=== PATIENT | female | born 1945 | race Caucasian/White ===

== ENCOUNTER 2017-07-29 09:15 | Emergency (ER) | payer MEDICARE, OTHER ==
[~2017-07-29] VITALS: Ht 165.1 cm; Wt 72.6 kg
--- OUTSIDE RECORDS SUMMARY | ~2017-07-29 | XMS | Encounter Summary ---
Demographics + + + | Address | [address] | | | [place] [address] | + + + | Home Phone | | + + + | Preferred Language | Unknown | + + + | Marital Status | | + + + | Alevism Affiliation | CHR | + + + [...] | Unavailable | + + + Support +------+ + + + + + | Name | Relationship | Address | Phone | +------+ + + + + + ECON | [address] | | [place], | [place] [address] | +------+ + + + + + Care Team Providers + +------+-------+ | Care Engagement Quality Consultant Name | Role | Phone | + +------+-------+ | Antony Ribera MD | PCP | tel | + +------+-------+ Reason for Visit + + + | Reason | Comments | + + + | Osteoporosis | | + + + Office Visit - E/M Services (Routine) +--------+ + + + + + | Status | Reason | Specialty | Diagnoses / | Referred By | Referred To | | | | | Procedures | Contact | Contact | +--------+ + + + + + | Closed | Specialty | Endocrinology | Diagnoses | Marcus, | Carlos Manuel, | | | Services | , Diabetes & | Thyroid | Stevan Razo, | MD Tapan | | | Required | Metabolism | nodule | MD [address] | [address] | | | | | Disorder of | [address] | [address] | | | | | bone and | [place], [place] | Rd [place], | | | | | cartilage, | [address] | [place] | | | | | unspecified | Phone: | [address] | | | | | | [phone] | Phone: | | | | | | Fax: | [phone] | | | | | | [phone] | Fax: | | | | | | | [phone] | +--------+ + + + + + Encounter Details +--------+---------+ + + + | Date | Type | Department | Care Team | Description | +--------+---------+ + + + | 11/29/ | Office | John Rudolph | Tapan Horowitz MD | Disorder of bone and | | 2017 | Visit | Diabetes Health | [address] [facility] | cartilage (Primary | | | | [facility] | [address] [place], | Dx); Thyroid nodule; | | | | [facility] [address] | [place] [address] | Other specified | | | | [facility] | [phone] | disorders of bone | | | | [facility] | | density and | | | | [facility] | | structure, | | | | [facility] [place], | | unspecified site | | | | [place] [address] | | (CODE) | | | | [phone] | | | +--------+---------+ + + + [...] | | + +---+---+---+ + + | Tobacco Cessation: Counseling Given: Yes | + + + + +---------+ + | Alcohol Use | Drinks/We | oz/Week | Comments | | | ek | | | + + +---------+ + | No | | | | + + +---------+ + + + + | Sex Assigned at | Date Recorded | | | | + + + | Not on file | | + + + as of this encounter Last Filed Vital Signs + + + + | Vital Sign | Reading | Time Taken | + + + + | Blood Pressure | - | - | + + + + | Pulse | - | - | + + + + | Temperature | - | - | + + + + | Respiratory Rate | 12 | 06/13/2017 12:53 PM PST | + + + + | Oxygen Saturation | - | - | + + + + | Inhaled Oxygen | - | - | | Concentration | | | + + + + | Weight | 71.2 kg (157 lb) | 06/13/2017 12:53 PM PST | + + + + | Height | 166.6 cm (5' 5.6") | 06/13/2017 12:53 PM PST | + + + + | Body Mass Index | 25.65 | 06/13/2017 12:53 PM PST | + + + + in this encounter Progress Notes Tapan Horowitz MD - 06/13/2017 12:[facility] 1) Bone: pt last rcvd IV Relcast in 2010. DXA is stable. Will repeat infusion in 2019. Pt o n calcium/vit d- check vit d level. Pt sees dentist regularly. 2) Thyroid nodules: check TSH. No more imaging required. The time I spent with the patient was 15 minutes of which greater than 50% was spent in one on one counseling. Reviewed DXA report in this encounter Plan of Treatment +--------+ + + + + | Date | Type | Specialty | Care Team | Description | +--------+ + + + + | 08/14/ | Office | Cardiology | Elijah Whalen, | | | 2017 | Visit | | MD [address] | | | | | | [address] | | | | | | [place], [place] | | | | | | [address] | | | | | | [phone] | | | | | | | | +--------+ + + + + | 10/24/ | Appointment | Pulmonary Disease | [facility] | | | 2018 | | | [address] | | | | | | [facility], | | | | | | [place] [address] | | +--------+ + + + + | 10/24/ | Results/Int | Pulmonary Disease | | | | 2017 | erpretation | | | | +--------+ + + + + | 10/24/ | Office | Pulmonary Disease | Juana Kilgore MD | | | 2017 | Visit | | [address] | | | | | | [address], | | | | | | [place] [address] | | | | | | [phone] | | | | | | | | +--------+ + + + + | 10/29/ | Appointment | Radiology | [facility], | | | 2017 | | | [address] | | | | | | [place], [place] | | | | | | [address] | | | | | | [phone] | | | | | | | | +--------+ + + + + | 10/29/ | Office | Surgical Oncology | [facility], | | | 2017 | Visit | | [address] | | | | | | [place], [place] | | | | | | [address] | | | | | | [phone] | | | | | | | | +--------+ + + + + | 06/26/ | Office | Endocrinology, | Tapan Horowitz MD | | | 2018 | Visit | Diabetes & | [address] | | | | | Metabolism | [address] [place], | | | | | | [place] [address] | | | | | | [phone] | | | | | | | | +--------+ + + + + as of this encounter Results TSH (06/13/2017 1:00 PM) + +-------+ + | Component | Value | Ref Range | + +-------+ + | TSH | 1.78 | 0.47 - 7.11 mIU/L | + +-------+ + + + + | Specimen | Performing Laboratory | + + + | Blood | [facility], CORE [address] [place] [address] | | | [place] [address] | + + + + + | Narrative | + + | TSH reference ranges are influenced by a variety of environmental influences, age, | | gender and ethnicity. The supplied reference limits are based on published values | | utilizing a similar TSH assay, and should be interpreted with caution. | + + VITAMIN D, 25-HYDROXY, SERUM (06/13/2017 1:00 PM) + + + + | Component | Value | Ref Range | + + + + | VITAMIN D 25 HYDROXY | 29.0 (L) | 30 - 80 ng/mL | + + + + + + + | Specimen | Performing Laboratory | + + + | Blood | [facility], CORE [address] [facility] | | | [place] [address] | + + + + + | Narrative | + + | Reference Interval: 0-18years: Deficiency: <20 ng/mL | | Optimum level: >or=20 | | ng/mL >18years: | | Deficiency: <20 ng/mL | | Insufficiency: 20-29 ng/mL Optimum Level: 30-80 ng/mL | | High: 81-150 ng/ml | | Toxic: >150 ng/mL | + + in this encounter Visit Diagnoses + + | Diagnosis | + + | Disorder of bone and cartilage - Primary | + + | Disorder of bone and cartilage, unspecified | + + | Thyroid nodule | + + | Nontoxic uninodular goiter | + + | Other specified disorders of bone density and structure, unspecified site (CODE) | + +
--- OUTSIDE RECORDS SUMMARY | ~2017-07-29 | XMS | Encounter Summary ---
Demographics + + + | Address | [address] | | | [place] [address] | + + + | Home Phone | | + + + | Preferred Language | Unknown | + + + | Marital Status | | + + + | Alevism Affiliation | CHR | + + + | Race | White | + + + | Ethnic Group | Not or | + + + Author + + + | Author | [facility] | + + + | Organization | [facility] | + + + | Address | Unknown | + + + | Phone | Unavailable | + + + Support +------+ + + + + + | Name | Relationship | Address | Phone | +------+ + + + + + ECON | [address] | | [place], | [place] [address] | +------+ + + + + + Care Team Providers + +------+-------+ | Care Sea Air Land Officer Name | Role | Phone | + +------+-------+ | Antony Ribera MD | PCP | tel | + +------+-------+ Encounter Details +--------+------+ + + + | Date | Type | Department | Care Team | Description | +--------+------+ + + + | 06/13/ | Lab | Laboratory, | | Other specified | | 2016 | | Specimen Collection | | disorders of bone | | | | at [facility] [address] [address] | | density and | | | | [address] | | structure, | | | | [address] | | unspecified site | | | | [place], [place] | | (CODE) ; Disorder of | | | | [address] | | bone and cartilage; | | | | [phone] | | Thyroid nodule | +--------+------+ + + + Social History [...] + + + as of this encounter Plan of Treatment +--------+ + + + + | Date | Type | Specialty | Care Team | Description | +--------+ + + + + | 08/14/ | Office | Cardiology | Elijah Whalen, | | | 2018 | Visit | | [address] | | | | | | [address] | | | | | | [place], [place] | | | | | | [address] | | | | | | [phone] | | | | | | | | +--------+ + + + + | 10/24/ | Appointment | Pulmonary Disease | Tech, Pfl Adult | | | 2018 | | | [address] | | | | | | [facility], | | | | | | [place] [address] | | +--------+ + + + + | 10/24/ | Results/Int | Pulmonary Disease | | | | 2017 | erpretation | | | | +--------+ + + + + | 10/24/ | Office | Pulmonary Disease | Juana Kilgore MD | | | 2017 | Visit | | [address] | | | | | | [facility], | | | | | | [place] [address] | | | | | | [phone] | | | | | | | | +--------+ + + + + | 10/29/ | Appointment | Radiology | [facility], | | | 2018 | | | [address] | | | | | | [place], [place] | | | | | | [address] | | | | | | [phone] | | | | | | | | +--------+ + + + + | 10/29/ | Office | Surgical Oncology | [facility], | | | 2017 | Visit | | [address] | | | | | | [place] | | | | | | [address] | | | | | | [phone] | | | | | | | | +--------+ + + + + | 06/26/ | Office | Endocrinology, | Tapan Horowitz MD | | | 2017 | Visit | Diabetes & | [address] | | | | | Metabolism | [place], | | | | | | [place] [address] | | | | | | [phone] | | | | | | | [...] | + + + | Blood | [facility], CORE [address] [facility] | | | [place] [address] | + + + + + | [...] | + + + | Blood | [facility], CORE [address] | | | [place] [address] | + + + + + | [...] + | Diagnosis | + + | Other specified disorders of bone density and structure, unspecified site (CODE) | + + | Disorder of bone and cartilage | + + | Disorder of bone and cartilage, unspecified | + + | Thyroid nodule | + + | Nontoxic uninodular goiter | + +"
--- OUTSIDE RECORDS SUMMARY | ~2017-07-29 | XMS | Encounter Summary ---
Demographics + + + | Address | [address] | | | [place] [address] | + + + | Home Phone | | + + + | Preferred Language | Unknown | + + + | Marital Status | | + + + | Jain Affiliation | CHR | + + + | Race | White | + + + | Ethnic Group | Not or | + + + Author + + + | Author | [facility] | + + + | Organization | [facility] | + + + | Address | Unknown | + + + | Phone | Unavailable | + + + Support +------+ + + + + + | Name | Relationship | Address | Phone | +------+ + + + + + ECON | [address] | | [place], | [place] [address] | +------+ + + + + + Care Team Providers + +------+-------+ | Care Production Hand Name | Role | Phone | + +------+-------+ | Antony Ribera MD | PCP | tel | + +------+-------+ Encounter Details +--------+ + + + + | Date | Type | Department | Care Team | Description | +--------+ + + + + | 07/19/ | Abstract | Cardiology | Elijah Whalen, | | | 2018 | | Arrhythmia at [facility] | [address] | | | | | [address] | [address] | | | | | Mailcode: [id number] | [place], [place] | | | | | [facility] | [address] | | | | | and Healing | [phone] | | | | | Floor [place], [place] | | | | | | [address] | | | | | | [phone] | | | +--------+ + + + [...] | | 2017 | Visit | | [address] | | | | | | [address] | | | | | | [place], [place] | | | | | | [address] | | | | | | [phone] | | | | | | | | +--------+ + + + + | 10/24/ | Appointment | Pulmonary Disease | [facility] Adult | | | 2018 | | | [address] | | | | | | [facility], | | | | | | [place] [address] | | +--------+ + + + + | 10/24/ | Results/Int | Pulmonary Disease | | | | 2018 | erpretation | | | | +--------+ + + + + | 10/24/ | Office | Pulmonary Disease | Juana Kilgore MD | | | 2018 | Visit | | [address] | | | | | | [facility], | | | | | | [place] [address] | | | | | | [phone] | | | | | | | | +--------+ + + + + | 10/29/ | Appointment | Radiology | [facility], | | | 2018 | | | [address] | | | | | | [place], [place] | | | | | | [address] | | | | | | [phone] | | | | | | | | +--------+ + + + + | 10/29/ | Office | Surgical Oncology | [facility], | | | 2017 | Visit | | [address] | | | | | | [place], [place] | | | | | | [address] | | | | | | [phone] | | | | | | | | +--------+ + + + + | 06/26/ | Office | Endocrinology, | Tapan Horowitz MD | | | 2017 | Visit | Diabetes & | [address] | | | | | Metabolism | [place], | | | | | | [place] [address] | | | | | | [phone] | | | | | | | | +--------+ + + + + as of this encounter Visit Diagnoses Not on filein this encounter"
--- OUTSIDE RECORDS SUMMARY | ~2017-07-29 | XMS | Encounter Summary ---
Demographics + + + | Address | [address] | | | [place] [address] | + + + | Home Phone | | + + + | Preferred Language | Unknown | + + + | Marital Status | | + + + | Church Affiliation | CHR | + + + | Race | White | + + + | Ethnic Group | Not or | + + + Author + + + | Author | [facility] | + + + | Organization | [facility] | + + + | Address | Unknown | + + + | Phone | Unavailable | + + + Support +------+ + + + + + | Name | Relationship | Address | Phone | +------+ + + + + + ECON | [address] | | [place], | [place] [address] | +------+ + + + + + Care Team Providers + +------+-------+ | Care Millinery Blocker Name | Role | Phone | + +------+-------+ | Antony Ribera MD | PCP | tel | + +------+-------+ Reason for Visit + + + | Reason | Comments | + + + | Telephone follow-up | 06/26/17 | + + + Encounter Details +--------+ + + + + | Date | Type | Department | Care Team | Description | +--------+ + + + + | 06/27/ | Telephone | Digestive Health | Teresita Ki | Telephone follow-up | | 2017 | | [place] [facility] 4[facility] | MD [address] | (06/26/17) | | | | Floor [address] [facility] | [facility] | | | | | [facility] | [place] [address] | | | | | Mailcode: [id number] | [phone] | | | | | [place] | | | | | | [address] [place], [place] | | | | | | [address] | | | | | | [phone] | | | +--------+ + + + [...] 2017 | Visit | | [address] | | | | | | [address] | | | | | | [place], [place] | | | | | | [address] | | | | | | [phone] | | | | | | | | +--------+ + + + + | 10/24/ | Appointment | Pulmonary Disease | Cheng Christina Adult | | | 2018 | | | [address] | | | | | | [facility], | | | | | | [place] [address] | | +--------+ + + + + | 10/24/ | Results/Int | Pulmonary Disease | | | | 2017 | erpretation | | | | +--------+ + + + + | 10/24/ | Office | Pulmonary Disease | Juana Kilgore MD | | | 2017 | Visit | | [address] | | | | | | [place], | | | | | | [place] [address] | | | | | | [phone] | | | | | | | | +--------+ + + + + | 10/29/ | Appointment | Radiology | [facility], | | | 2017 | | | [address] | | | | | | [place], [place] | | | | | | [address] | | | | | | [phone] | | | | | | | | +--------+ + + + + | 10/29/ | Office | Surgical Oncology | [facility], | | | 2017 | Visit | | [address] | | | | | | [place], [place] | | | | | | [address] | | | | | | [phone] | | | | | | | | +--------+ + + + + | 06/26/ | Office | Endocrinology, | Tapan Horowitz MD | | | 2017 | Visit | Diabetes & | [address] | | | | | Metabolism | [place], | | | | | | [place] [address] | | | | | | [phone] | | | | | | | | +--------+ + + + + as of this encounter Visit Diagnoses Not on filein this encounter"
--- OUTSIDE RECORDS SUMMARY | ~2017-07-29 | XMS | Encounter Summary ---
Demographics + + + | Address | [address] | | | [place] [address] | + + + | Home Phone | | + + + | Preferred Language | Unknown | + + + | Marital Status | | + + + | Zoroastrianism Affiliation | CHR | + + + | Race | White | + + + | Ethnic Group | Not or | + + + Author + + + | Author | [facility] | + + + | Organization | [facility] | + + + | Address | Unknown | + + + | Phone | Unavailable | + + + Support +------+ + + + + + | Name | Relationship | Address | Phone | +------+ + + + + + ECON | [address] | | [place], | [place] [address] | +------+ + + + + + Care Team Providers + +------+-------+ | Care Janitor Custodian Name | Role | Phone | + +------+-------+ | Antony Ribera MD | PCP | tel | + +------+-------+ Encounter Details +--------+---------+ + + + | Date | Type | Department | Care Team | Description | +--------+---------+ + + + | 05/16/ | Office | Cardiology | Elijah Whalen, | Atrial tachycardia | | 2017 | Visit | Arrhythmia at [facility] | [address] | ([facility]) (Primary Dx); | | | | [address] | [address] | Paroxysmal atrial | | | | Mailcode: CH9A | [place], [place] | fibrillation (HCC) | | | | [facility] | [address] | | | | | and | [phone] | | | | | Floor [place], [place] | | | | | | [address] | | | | | | [phone] | | | +--------+---------+ + + + [...] + + + | Blood Pressure | 145/75 | 05/16/2017 12:46 PM PDT | + + + + | Pulse | 83 | 05/16/2017 12:46 PM PDT | + + + + | Temperature | - | - | + + + + | Respiratory Rate | - | - | + + + + | Oxygen Saturation | 99% | 05/16/2017 12:46 PM PDT | + + + + | Inhaled Oxygen | - | - | | Concentration | | | + + + + | Weight | 73.2 kg (161 lb 6.4 | 05/16/2017 12:46 PM PDT | | | oz) | | + + + + | Height | 166.4 cm (5' 5.5") | 05/16/2017 12:46 PM PDT | + + + + | Body Mass Index | 26.45 | 05/16/2017 12:46 PM PDT | + + + + in this encounter Instructions Patient Instructions - Elijah Whalen MD - 05/16/2017 1:05 PM PDT1 - If you notice susta ined irregular tachcyardia please get an ECG at the hospital in [place] 2 - If your leg swelling or shortness of breath becomes clearly worse, contact be about get ting an echocardiogram Otherwise I'll see you back in a yearin this encounter Progress Notes Elijah Whalen MD - 05/16/2017 1:05 PM PDTFormatting of this note may be different from the original. Arrhythmia Clinic Follow-up Past Medical History: Diagnosis Date Asthma 1999 Atrial tachycardia (HCC) 07/20 also episode in setting of [place] virus in 05/2012 which was thougth to be AF, but likely just AT. Atrial tachycardia (HCC) RA stacey tach ablated 2004 at [facility]. Repeat EPS showed only non-sustained left atrial tach ycardia Breast cancer (HCC) 02/2007 s/p chemo with taxotere/cytoxan Bursitis 2006 Deep vein thrombosis of lower extremity (HCC) Diverticul disease small and large intestine, no perforati or abscess Fibrocystic disease of breast 1979 Fibromyalgia 1995 GERD (gastroesophageal reflux disease) 1995 Mitral valve prolapse 1990 Osteopenia 12/30/2007 Plantar fascial fibromatosis 2007 plantar fascial tear Pulmonary embolus (HCC) 09/2008 Shingles Sjogrens syndrome (HCC) 1995 Skin cancer back Small bowel obstruction 07/20,10/19,02/19 TMJ (dislocation of temporomandibular joint) Patient Active Problem List Diagnosis Date Noted Paroxysmal atrial fibrillation (HCC) 11/14/2016 Asthma 02/03/2014 Extrinsic asthma 10/27/2012 Overview Note: ICD10 History of DVT (deep vein thrombosis) 06/26/2012 Thyroid nodule 12/29/2008 Overview Note: May 2011 US: Scattered sub-cm nodules December 2008 US: 5 mm Right cyst Sjogren's syndrome (HCC) 09/08/2008 Breast cancer (HCC) 05/21/2008 Disorder of bone and cartilage 12/30/2007 Overview Note: Reclast [id number] DXA 06/02/15: L -1.6 H -1.9 DXA 06/06/13; L -1.6 H -1.9 DXA 04/28/11: L -1.8 H -1.8 DXA 01/27/10: L -1.9 H -1.6 DXA 12/28/08: L -1.9 H -1.5 Acquired absence of breast and nipple 03/27/2007 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 Intestinal/congestion. Cardizem [Diltiazem Hcl] Hives Crestor [Rosuvastatin Calcium] muscle/Jt Pain Albuterol Tachycardia and Palpitations Celebrex [Celecoxib] Diarrhea, Cough and Unknown Flecainide Unknown Propafenone Unknown Intestinal distress. Tape Adherent Rash Triamterene-Hydrochlorothiazid Unknown BREAST LUMPS BREAST LUMPS Current Outpatient Prescriptions Medication Sig albuterol 0.083% 2.5 mg /3 mL (0.083 %) inhalation solution for nebulization Inhale 3 m L once daily as needed. azithromycin 250 mg oral tablet as needed. budesonide (PULMICORT FLEXHALER) 180 mcg/actuation [...] into each nostril three roxie es daily. [facility] #[id number] 300-250 million cell-mg oral capsule Take by [...] 1 tablet by mouth o nce daily. predniSONE 20 mg oral tablet as needed. rabeprazole (ACIPHEX) 20 mg Oral Tablet, Delayed [...] No current facility-administered medications for this visit. S: Ms. Flynn is here for follow-up alone today. Overall her palpitations are tolerable. No chest/arm/neck discomforts, orthopnea, PND, light-headedness or syncope. This summer she n oted more than usual lower extremity edema and has had some increase in dyspnea on exertion she attributes to mild weight gain. Both are stable and the swelling has improved with colde r weather Comprehensive ROS as above, otherwise negative O: BP 145/75 | Pulse 83 | Ht 1.664 m (5' 5.5") | Wt 73.2 kg (161 lb 6.4 oz) | SpO2 99% | BM I 26.45 kg/(m^2) Heart: RRR without murmur rub or gallop. Normal S1 and S2. CVP normal by neck veins. Lungs: clear to auscultation bilaterally Abdomen: soft, NT/ND without bruits or organomegally. Extremities: warm without edema. ECG today. Sinus rhythm 72. Cannot likely lead placement causing Qs V1 and V2 Stress echo 2011 normal Assessment: 1 - Atrial tachycardia - S/p successful ablation of stacey tach 2004. Second EPS for recurrent PSVT showed only n on-sustained LA tach - Did not tolerate Class Ic agent (GI issues). 2 - Paroxysmal atrial fibrillation. - Confirmed on Ziopatch after an illnesses in 08/2016 - Unclear how much of her symptoms is from atrial fibrillation versus PACs versus a PSVT - CHADS 2 Score: 0 CHADS2-VASC Score: 2 HAS-BLED Score: 1. In balance in this case, most appropriate antithrombotic treatment is anticoagulation. She is currently taking rivaroxaban without thromboembolism or major bleeding. - Had been on dofetilide for suppression of atrial tachycardia and atrial fibrillation wit h partial success, though she has not had worsened symptoms off of it 3 - History of DVT/PE during treatment for cancer. Reportedly considered as "provoked" Recommendations/Plans: 1 - No changes 2 - If she has recurrent sustained palpitations that could be consistent with atrial fibril lation she will go to her local hospital for an ECG. I have given her an external order for ECG and we should do that each year and annual follow-up 3 - if she has worsening alert from edema and dyspnea on exertion in the future we will ord er an echo to be done either locally or at [facility] 4 - she will see Francheska Quick and arrhythmia clinic annually if her symptoms remain tolera ble. I would like to see her after a repeat 30-day monitor (button presses for severe sympto ms only) if her symptoms are inadequately controlled and an antiarrhythmic drug is considere d, or in 2021 if she us doing well but we have been unable to capture any additional episode s of atrial fibrillation (to consider whether lifelong anticoagulation is really warranted) Elijah Whalen MD Cardiovascular Medicine - Electrophysiology [facility] [place] at [facility] in this encounter Plan of Treatment +--------+ + + + + | Date | Type | Specialty | Care Team | Description | +--------+ + + + + | 08/14/ | Office | Cardiology | Elijah Whalen, | | | 2017 | Visit | | [address] | | | | | | [facility] | | | | | | [place], [place] | | | | | | [address] | | | | | | [phone] | | | | | | | | +--------+ + + + + | 10/24/ | Appointment | Pulmonary Disease | Tech Pfellen Adult | | | 2018 | | | [address] | | | | | | [facility], | | | | | | [place] [address] | | +--------+ + + + + | 10/24/ | Results/Int | Pulmonary Disease | | | | 2018 | erpretation | | | | +--------+ + + + + | 10/24/ | Office | Pulmonary Disease | Juana Kilgore MD | | | 2017 | Visit | | [address] | | | | | | [facility], | | | | | | [place] [address] | | | | | | [phone] | | | | | | | | +--------+ + + + + | 10/29/ | Appointment | Radiology | [facility], | | | 2018 | | | [address] | | | | | | [place], [place] | | | | | | [address] | | | | | | [phone] | | | | | | | | +--------+ + + + + | 10/29/ | Office | Surgical Oncology | [facility], | | | 2017 | Visit | | [address] | | | | | | [place], [place] | | | | | | [address] | | | | | | [phone] | | | | | | | | +--------+ + + + + | 06/26/ | Office | Endocrinology, | Tapan Horowitz MD | | | 2017 | Visit | Diabetes & | [address] | | | | | Metabolism | [place], | | | | | | [place] [address] | | | | | | [phone] | | | | | | | | +--------+ + + + + + +--------+ + + | Name | Priori | Associated Diagnoses | Order Schedule | | | ty | | | + +--------+ + + | 12 LEAD ECG | Routin | Paroxysmal atrial | Ordered: 05/16/2017 | | | e | fibrillation (HCC) | | + +--------+ + + as of this encounter Results 12 LEAD ECG (05/16/2017 12:40 PM) + + + + | Component | Value | Ref Range | + + + + | VENTRICULAR RATE | 83 | bpm | + + + + | ATRIAL RATE | 84 | ms | + + + + | P-R INTERVAL | 193 | ms | + + + + | P AXIS | 62 | deg | + + + + | QRS DURATION | 97 | ms | + + + + | QT | 393 | ms | + + + + | QTCB | 462 | ms | + + + + | R AXIS | -22 | deg | + + + + | T AXIS | 22 | deg | + + + + | ECG IMPRESSION | Sinus rhythm | | + + + + | ECG IMPRESSION | Consider anteroseptal infarct- ABNORMAL ECG | | | | - | | + + + + | ECG IMPRESSION | Electronically signed by: YOLANDA BURNS | | | | 05-16-2017 20:26:54 | | + + + + + + + | Specimen | Performing Laboratory | + + + | | [facility] [address] [place] [address] | | | [place] [address] | + + + in this encounter Visit Diagnoses + + | Diagnosis | + + | Atrial tachycardia (HCC) - Primary | + + | Other specified cardiac dysrhythmias | + + | Paroxysmal atrial fibrillation (HCC) | + + | Atrial fibrillation | + +
--- OUTSIDE RECORDS SUMMARY | ~2017-07-29 | XMS | Encounter Summary ---
Demographics + + + | Address | [address] | | | [place] [address] | + + + | Home Phone | | + + + | Preferred Language | Unknown | + + + | Marital Status | | + + + | Hoahaoism Affiliation | CHR | + + + [...] + + + + + ECON | [address] | | [place], | [place] [address] | +------+ + + + + + Care Team Providers + +------+-------+ | Care Locomotive Crane Operator Name | Role | Phone | + +------+-------+ | Doug Ribera MD | PCP | tel | + +------+-------+ Reason for Visit AUTH/CERT +--------+--------+ + + + + | Status | Reason | Specialty | Diagnoses / | Referred By | Referred To | | | | | Procedures | Contact | Contact | +--------+--------+ + + + + | | | | | | | +--------+--------+ + + + + Encounter Details +--------+ + + + + | Date | Type | Department | Care Team | Description | +--------+ + + + + | 06/26/ | Hospital | [facility] [address] | Ashley Lo | | | 2017 | Encounter | [address] | MD Dez [address] | | | | | [facility] | Jacob Meera [place], | | | | | [place] | [place] [address] | | | | | (MNP/OLD N) | [phone] | | | | | [place] [address] | | | | | | [phone] | | | +--------+ + + + [...] + + + | Blood Pressure | 157/91 | 06/26/2017 11:14 AM PST | + + + + | Pulse | 80 | 06/26/2017 11:14 AM PST | + + + + | Temperature | 36.3 C (97.3 F) | 06/26/2017 10:47 AM PST | + + + + | Respiratory Rate | 14 | 06/26/2017 11:14 AM PST | + + + + | Oxygen Saturation | 100% | 06/26/2017 11:14 AM PST | + + + + | Inhaled Oxygen | - | - | | Concentration | | | + + + + | Weight | 71.2 kg (157 lb) | 06/26/2017 8:41 AM PST | + + + + | Height | 166.4 cm (5' 5.5") | 06/26/2017 8:41 AM PST | + + + + | Body Mass Index | 25.73 | 06/26/2017 8:41 AM PST | + + + + in this encounter Discharge Instructions Uday Miller RN - 06/26/2017 Home Care Instructions after EGD (Upper Endoscopy) & Colonoscopy You may resume your normal diet and medications unless told otherwise. Medications The medications you received for your procedure can cause you to be forgetful and drowsy an d will take the remainder of the day to wear off. DO NOT drink alcohol, drive, operate heavy machinery, sign legal documents, or make major d ecisions until tomorrow. Common After Effects Sore throat. You may treat it with throat lozenges and/or gargle with warm salt water. You may bruise at your IV site. If you have pain, redness, or swelling at your IV site a pply a warm compress. Mild abdominal pain, bloating, and excessive gas. This is caused by the air that was put in your colon during the procedure. These symptoms will improve as you pass gas. Activity Light activity such as walking will help you pass the air that was put into your colon. Complications Call your GI doctor if you have: Abnormal pain or any new unexplained symptoms. Bright red rectal bleeding Shortness of breath, chest or neck pain. Vomiting blood or rectal bleeding. Fever above 101.5 Redness, pain, or swelling at your IV site that is not relieved with warm compress. For any questions related to your procedure, call Sunday- Sunday 8:00- 4:30 Call the endoscopy department toll free ext. [phone] or After business hours or on weekends and holidays call the Hospital Sewing Machine Maintenance Mechanic toll free [phone] ext. [phone] and have the GI doctor leadership development consultant paged. The provider who performed your procedure is: Dr. Lo Results of your EGD: Normal exam Results of your Colonoscopy: Normal exam. Restart your Xarelto today. Recommended follow up Colonoscopy: 10 years Follow up Appointments with: Your primary care provider as needed. Your primary care provider or referring provider will receive copies of the procedure repor t and all the pathology reports with recommendations for treatment if needed. If Noted above that biopsies were taken or polyps removed we will receive the results in ap proximately 1 week. If you have not heard from us after 2 weeks please call for your results . in this encounter Medications at Time of Discharge + + + +---------+ + + | Medication | Sig. | Disp. | Refills | Start | End Date | | | | | | Date | | + + + +---------+ + + | calcium | 2 tabs in evening | | | | | | citrate-vitamin D | and liquid calcium | | | | | | (CITRACAL + D) | citrate in AM | | | | | | 315-200 mg-unit Oral | | | | | | | Tablet | | | | | | + + + +---------+ + + | | 1 drop 3 Times Daily | | | | | | carboxymethylcellulo | | | | | | | se 0.5 % ophthalmic | | | | | | | dropperette | | | | | | + + + +---------+ + + | ezetimibe (ZETIA) | Take 10 mg by mouth | | | | | | 10 mg Oral Tablet | once daily. | | | | | + + + +---------+ + + | fluticasone | Instill 1 spray into | 16 each | 5 | 01/25/20 | | | (FLONASE) 50 | each nostril two | | | 17 | | | mcg/actuation nasal | times daily. | | | | | | spray,suspensionIndi | | | | | | | cations: Chronic | | | | | | | sinusitis, | | | | | | | unspecified location | | | | | | + + + +---------+ + + | ipratropium 0.02 % | Inhale 2.5 mL(ONE | 280 mL | 3 | 01/03/20 | | | inhalation solution | AMPULE) via | | | 16 | | | | nebulizer every six | | | | | | | hours as needed | | | | | | | (Shortness of | | | | | | | breath). | | | | | + + + +---------+ + + | lactobac cmb | Take by mouth once | | | | | | #[id number] | daily. | | | | | | 300-250 million | | | | | | | cell-mg oral capsule | | | | | | + + + +---------+ + + | levalbuterol 1.25 | Inhale 3 mL every | 336 mL | 6 | 10/03/19 | | | mg/3 mL inhalation | six hours as needed | | | 17 | | | solution for | (shortness of | | | | | | nebulizationIndicati | breath). | | | | | | ons: Acute Asthma | Indications: Acute | | | | | | Attack | Asthma Attack | | | | | + + + +---------+ + + | levalbuterol 45 | Inhale 1-2 puffs by | 1 | 6 | 05/16/20 | | | mcg/actuation | mouth every six | Inhaler | | 17 | | | inhalation HFA | hours as needed. | | | | | | aerosol | Indications: | | | | | | inhalerIndications: | Bronchospasm | | | | | | Bronchospasm | Prevention | | | | | | Prevention | | | | | | + + + +---------+ + + | LORAZEPAM 1 mg | 0.5 Tabs Q HS PRN. | | | 06/10/20 | | | Oral tablet | | | | 12 | | + + + +---------+ + + | metoprolol | Take 75mg TID. May | 450 | 3 | 04/06/20 | | | tartrate 50 mg oral | take an additional | tablet | | 17 | | | tablet | 25mg PRN | | | | | | | palpitations | | | | | + + + +---------+ + + | MULTIVITAMIN OR | one daily | | | | | + + + +---------+ + + | ofloxacin 0.3 % | as needed. | | | 12/23/19 | | | ophthalmic drops | | | | 16 | | + + + +---------+ + + | polyethylene | Mix 17 g in liquid | | | | | | glycol (MIRALAX) 17 | and drink once | | | | | | gram/dose oral | daily. | | | | | | powder | | | | | | + + + +---------+ + + | potassium chloride | Take 1 tablet by | 30 | 5 | 04/06/20 | | | SR 20 mEq oral | mouth once daily. | tablet | | 17 | | | tablet,ER | | | | | | | particles/crystals | | | | | | + + + +---------+ + + | PULMICORT | INHALE THREE PUFFS | 3 | 6 | 06/29/20 | | | FLEXHALER 180 | BY MOUTH TWICE A DAY | Inhaler | | 17 | | | mcg/actuation | | | | | | | inhalation aerosol | | | | | | | powdr breath | | | | | | | activated | | | | | | + + + +---------+ + + | rabeprazole | Take 20 mg by mouth | | | | | | (ACIPHEX) 20 mg Oral | every twelve hours. | | | | | | Tablet, Delayed | | | | | | | Release (E.C.) | | | | | | + + + +---------+ + + | rivaroxaban 20 mg | Take 1 tablet by | 90 | 3 | 06/18/20 | | | oral tablet | mouth once daily | tablet | | 17 | | | | with dinner | | | | | + + + +---------+ + + | tiotropium 1.25 | Inhale 2 puffs once | 1 | 11 | 10/03/19 | | | mcg/actuation | daily. Indications: | Inhaler | | 17 | | | inhalation | Maintenance Therapy | | | | | | mistIndications: | for Asthma | | | | | | Maintenance Therapy | | | | | | | for Asthma | | | | | | + + + +---------+ + + | Vitamin A-Vitamin | take 1 capsule by | | | | | | C-Vit E-Min | oral route once | | | | | | (ANTIOXIDANT | daily with food | | | | | | FORMULA) Oral | | | | | | | Capsule | | | | | | + + + +---------+ + + | VITAMIN D ORAL | 3000 IU daily | | | | | + + + +---------+ + + as of this encounter Progress Notes Ashley Lo MD - 06/26/2017 8:55 AM PSTFormatting of this note may be differe nt from the original. PRE PROCEDURE NOTE: MR# [id number] Subjective: Adriana Flynn is a 71 y.o. female who presents today for an EGD to evaluate dy sphagia and a screening colonoscopy. Patient History Reviewed Medications reviewed Allergies: Allergies as of 05/30/2017 - Fully Reviewed 05/16/2017 Allergen Reaction Noted Sulfa (sulfonamide antibiotics) Swelling-Facial and Unknown 07/01/2004 Adhesive tape-silicones Rash 01/03/2016 Lactose Cough 11/02/2009 Cardizem [diltiazem hcl] Hives 06/25/2012 Crestor [rosuvastatin calcium] muscle/Jt Pain 09/07/2009 Albuterol Tachycardia and Palpitations 03/07/2007 Celebrex [celecoxib] Diarrhea, Cough, and Unknown 03/07/2007 Flecainide Unknown 01/03/2016 Propafenone Unknown 03/07/2007 Tape adherent Rash 07/06/2007 Triamterene-hydrochlorothiazid Unknown 08/11/2004 Pt NPO for 8 hrs. ROS: All others negative. Objective: Vital Signs: BP 147/80 | Pulse 81 | Temp 36.5 C (97.7 F) | RR 16 | Ht 1.664 m (5' 5.5") | Wt 71.2 kg (157 lb) | SpO2 99% | BMI 25.73 kg/(m^2) Neuro: Patient oriented X3. Mental status clear and intact Mallampati Score: II Neck negative Respiratory: Lungs clear to auscultation bilaterally with good air exchange Cardiovascular: sounds are wnl; no murmurs Abdomen: soft, normal active bowel sounds, nontender, no masses, no organomegaly Impression Patient deemed appropriate candidate for planned procedure and sedation. ASA:3 Plan Proceed with procedures PARQ held and all questions addressed. Consent obtained. See procedure note 06/26/2017 in this encounter Plan of Treatment +--------+ + + + + | Date | Type | Specialty | Care Team | Description | +--------+ + + + + | 08/14/ | Office | Cardiology | Elijah Whalen, | | | 2017 | Visit | | [address] | | | | | | [place] [address] | | | | | | [place], [place] | | | | | | [address] | | | | | | [phone] | | | | | | | | +--------+ + + + + | 10/24/ | Appointment | Pulmonary Disease | Cheng Christina Adult | | | 2017 | | | [address] | | | | | | [facility] | | | | | | [place] [address] | | +--------+ + + + + | 10/24/ | Results/Int | Pulmonary Disease | | | | 2018 | erpretation | | | | +--------+ + + + + | 10/24/ | Office | Pulmonary Disease | Juana Kilgore MD | | | 2017 | Visit | | [address] | | | | | | [place] [facility] | | | | | | [place] [address] | | | | | | [phone] | | | | | | | | +--------+ + + + + | 10/29/ | Appointment | Radiology | Henri Heart, | | | 2017 | | | [address] | | | | | | [place], [place] | | | | | | [address] | | | | | | [phone] | | | | | | | | +--------+ + + + + | 10/29/ | Office | Surgical Oncology | [facility] Heart, | | | 2018 | Visit | | [address] | | | | | | [place], [place] | | | | | | [address] | | | | | | [phone] | | | | | | | | +--------+ + + + + | 06/26/ | Office | Endocrinology, | Tapan Horowitz MD | | | 2018 | Visit | Diabetes & | [address] | | | | | Metabolism | [place], | | | | | | [place] [address] | | | | | | [phone] | | | | | | | | +--------+ + + + + as of this encounter Procedures + +--------+ + + + | Procedure Name | Priori | Date/Time | Associated Diagnosis | Comments | | | ty | | | | + +--------+ + + + | EGD | Routin | 06/26/2017 | Diverticulosis of | Results for this | | | e | 10:22 AM | small intestine | procedure are in the | | | | PST | without perforation | results section. | | | | | or abscess without | | | | | | bleeding | | + +--------+ + + + | COLONOSCOPY | Routin | 06/26/2017 | Diverticulosis of | Results for this | | | e | 10:21 AM | small intestine | procedure are in the | | | | PST | without perforation | results section. | | | | | or abscess without | | | | | | bleeding | | + +--------+ + + + in this encounter Results EGD (06/26/2017 10:22 AM) + + + | Specimen | Performing Laboratory | + + + | | [facility] | + + + + + | Narrative | + + | Procedure Date: 06/26/2017 Patient Name: Adriana Flynn Order #: | | [id number] Date of : 1945 CSN: [id number] Admit Type: Ambulatory Room: GI 3 | | Procedure: Upper GI endoscopy Indications: | | Dysphagia Providers: ASHLEY LO MD (Doctor), UDAY | | SAM MILLER (Nurse), GAUTAM BRADY, | | Planning Feeder (Planning Feeder) Referring MD: DOUG RIBERA MD | | Requesting Provider: Medicines: Monitored Anesthesia Care | | Complications: No immediate complications. Procedure: | | Pre-Anesthesia Assessment: - ASA Grade | | Assessment: II - A patient with mild systemic | | disease. Prior to the procedure, a History | | and Physical with airway assessment was | | performed (see patient record), and patient | | medications and allergies were reviewed. The | | risks and benefits of the procedure and the sedation | | options and risks were discussed. All questions | | were answered and informed consent was | | obtained. After reviewing the risks and | | benefits, the patient was deemed in | | satisfactory condition to undergo the procedure. | | Immediately prior to administration of | | medications, the patient was re-assessed for | | adequacy to receive sedatives. The heart | | rate, respiratory rate, oxygen saturations, | | blood pressure, adequacy of pulmonary | | ventilation, and response to care were monitored | | throughout the procedure. The physical status | | of the patient was re-assessed after the | | procedure. The Olympus [id number]-[id number] Endoscope | | #[id number] was introduced through the mouth, | | and advanced to the third part of duodenum. | | Estimated Blood Loss: Estimated blood loss: none. Findings: The | | Z-line was regular and was found 41 cm from the incisors. The esophagus was | | normal. Multiple 5 mm sessile polyps were found in the gastric body typical of | | FGPs in patient on chronic PPI therapy. The stomach was normal. | | Impression: - Z-line regular, 41 cm from the incisors. | | - Normal esophagus. | | - Multiple gastric polyps. | | - Normal stomach. | | - No specimens collected. | | No findings to explain dysphagia | | Recommendation: - Perform ambulatory esophageal manometry if symptoms | | persist. ASHLEY LO MD | | 06/26/2017 10:47:05 AM This report has been signed electronically. Number of Addenda: | | 0 Note Initiated On: 06/26/2017 10:22 AM CC Letter to: DOUG RIBERA, | | | + + COLONOSCOPY (06/26/2017 10:21 AM) + + + | Specimen | Performing Laboratory | + + + | | [facility] | + + + + + | Narrative | + + | Procedure Date: 06/26/2017 Patient Name: Adriana Flynn Order #: | | [id number] Date of : 1945 CSN: [id number] Admit Type: Ambulatory Room: GI 3 | | Procedure: Colonoscopy Indications: Screening for | | colorectal malignant neoplasm Providers: ASHLEY LO, | | (Doctor), UDAY MILLER RN (Nurse), | | GAUTAM BRADY, Planning Feeder (Planning Feeder) Referring MD: DOUG AUSTIN | | MD SHAQUILLE Requesting Provider: Medicines: Monitored Anesthesia | | Care Complications: No immediate complications. | | Procedure: Pre-Anesthesia Assessment: | | - ASA Grade Assessment: II - A patient with | | mild systemic disease. | | Prior to the procedure, a History and Physical | | with airway assessment was performed (see | | patient record), and patient medications and | | allergies were reviewed. The risks and | | benefits of the procedure and the sedation | | options and risks were discussed. All questions were | | answered and informed consent was obtained. | | After reviewing the risks and benefits, the | | patient was deemed in satisfactory condition | | to undergo the procedure. Immediately prior | | to administration of medications, the patient | | was re-assessed for adequacy to receive | | sedatives. The heart rate, respiratory rate, oxygen | | saturations, blood pressure, adequacy of | | pulmonary ventilation, and response to care | | were monitored throughout the procedure. The | | physical status of the patient was | | re-assessed after the procedure. The Olympus | | [id number]-[id number] Peds Colonoscope #[id number] was | | introduced through the anus and advanced to the cecum, | | identified by appendiceal orifice and ileocecal | | valve. The quality of the bowel preparation | | was evaluated using the BBPS (Camden Bowel | | Preparation Scale) with scores of: Right | | Colon = 2 (minor amount of residual staining, | | small fragments of stool and/or opaque liquid, but | | mucosa seen well), Transverse Colon = 3 (entire | | mucosa seen well with no residual staining, | | small fragments of stool or opaque liquid) | | and Left Colon = 2 (minor amount of residual | | staining, small fragments of stool and/or | | opaque liquid, but mucosa seen well). The total BBPS | | score equals 7. Estimated Blood Loss: | | Estimated blood loss: none. Findings: The entire examined colon | | appeared normal on direct and retroflexion views. There was what appeared to | | be an old surgical anastomosis in the sigmoid colon. No suture was seen | | The exam was otherwise without abnormality. Impression: - | | The entire examined colon is normal on direct and | | retroflexion views. | | - No specimens collected. | | Recommendation: - Repeat colonoscopy in 10 years for screening purposes. | | ASHLEY LO MD 06/26/2017 10:50:45 AM This report has been signed | | electronically. Number of Addenda: 0 Note Initiated On: 06/26/2017 10:21 AM CC Letter | | to: DOUG RIBERA MD | + + in this encounter Visit Diagnoses + + | Diagnosis | + + | Colon cancer screening - Primary | + + | Special screening for malignant neoplasms, colon | + + | Diverticulosis of small intestine without perforation or abscess without bleeding | + + Admitting Diagnoses + + | Diagnosis | + + | Diverticulosis of small intestine without perforation or abscess without bleeding | | [K57.10] | + + | R13.1 (ICD-10-CM) - Dysphagia | + +
--- OUTSIDE RECORDS SUMMARY | ~2017-07-29 | XMS | Encounter Summary ---
Demographics + + + | Address | [address] | | | [place] [address] | + + + | Home Phone | | + + + | Preferred Language | Unknown | + + + | Marital Status | | + + + | Confucianism Affiliation | CHR | + + + | Race | White | + + + | Ethnic Group | Not or | + + + Author + + + | Author | [facility] | + + + | Organization | [facility] | + + + | Address | Unknown | + + + | Phone | Unavailable | + + + Support +------+ + + + + + | Name | Relationship | Address | Phone | +------+ + + + + + ECON | [address] | | [place], | [place] [address] | +------+ + + + + + Care Team Providers + +------+-------+ | Care Oscillograph Technician Name | Role | Phone | + +------+-------+ | Antony Ribera MD | PCP | tel | + +------+-------+ Encounter Details +--------+ + + + + | Date | Type | Department | Care Team | Description | +--------+ + + + + | 07/19/ | Abstract | Cardiology | Elijah Whalen, | | | 2018 | | Arrhythmia at [facility] | [address] | | | | | [address] | [address] | | | | | Mailcode: CH9A | [place], [place] | | | | | [facility] | [address] | | | | | and Healing | [phone] | | | | | Floor [place], [place] | | | | | | [address] | | | | | | [phone] | | | +--------+ + + + [...] | | 2017 | Visit | | [address] | | | | | | [address] | | | | | | [place], [place] | | | | | | [address] | | | | | | [phone] | | | | | | | | +--------+ + + + + | 10/24/ | Appointment | Pulmonary Disease | [facility] Adult | | | 2018 | | | [address] | | | | | | [facility], | | | | | | [place] [address] | | +--------+ + + + + | 10/24/ | Results/Int | Pulmonary Disease | | | | 2018 | erpretation | | | | +--------+ + + + + | 10/24/ | Office | Pulmonary Disease | Juana Kilgore MD | | | 2018 | Visit | | [address] | | | | | | [facility], | | | | | | [place] [address] | | | | | | [phone] | | | | | | | | +--------+ + + + + | 10/29/ | Appointment | Radiology | [facility], | | | 2018 | | | [address] | | | | | | [place], [place] | | | | | | [address] | | | | | | [phone] | | | | | | | | +--------+ + + + + | 10/29/ | Office | Surgical Oncology | [facility], | | | 2017 | Visit | | [address] | | | | | | [place], [place] | | | | | | [address] | | | | | | [phone] | | | | | | | | +--------+ + + + + | 06/26/ | Office | Endocrinology, | Tapan Horowitz MD | | | 2017 | Visit | Diabetes & | [address] | | | | | Metabolism | [place], | | | | | | [place] [address] | | | | | | [phone] | | | | | | | | +--------+ + + + + as of this encounter Visit Diagnoses Not on filein this encounter"
--- OUTSIDE RECORDS SUMMARY | ~2017-07-29 | XMS | Encounter Summary ---
Demographics + + + | Address | [address] | | | [place] [address] | + + + | Home Phone [...] + + + + + ECON | [address] | | [place], | [place] [address] | +------+ + + + + + Care Team Providers + +------+-------+ | Care Power And Recovery Superintendent Name | Role | Phone | + +------+-------+ | Antony Ribera MD | PCP | tel | + +------+-------+ Encounter Details +--------+ + + + + | Date | Type | Department | Care Team | Description | +--------+ + + + + | 06/13/ | MyChart | John [facility] | Tapan Horowitz MD | labs | | 2017 | Encounter | Diabetes Health | [address] | | | | | [facility] at [facility] | [place], | | | | | [place] [address] | [place] [address] | | | | | [address] | [phone] | | | | | [facility] | | | | | | [facility] | | | | | | [place], | | | | | | [place] [address] | | | | | | [phone] | | | +--------+ + + + [...] | | 2017 | Visit | | [address] | | | | | | [address] | | | | | | [place], [place] | | | | | | [address] | | | | | | [phone] | | | | | | | | +--------+ + + + + | 10/24/ | Appointment | Pulmonary Disease | [facility] Adult | | | 2018 | | | [address] | | | | | | [facility], | | | | | | [place] [address] | | +--------+ + + + + | 10/24/ | Results/Int | Pulmonary Disease | | | | 2017 | erpretation | | | | +--------+ + + + + | 10/24/ | Office | Pulmonary Disease | Juana Kilgore MD | | | 2017 | Visit | | [address] | | | | | | [facility], | | | | | | [place] [address] | | | | | | [phone] | | | | | | | | +--------+ + + + + | 10/29/ | Appointment | Radiology | [facility], | | | 2017 | | | [address] | | | | | | [place], [place] | | | | | | [address] | | | | | | [phone] | | | | | | | | +--------+ + + + + | 10/29/ | Office | Surgical Oncology | [facility], | | | 2017 | Visit | | [address] | | | | | | [place], [place] | | | | | | [address] | | | | | | [phone] | | | | | | | | +--------+ + + + + | 06/26/ | Office | Endocrinology, | Tapan Horowitz MD | | | 2017 | Visit | Diabetes & | [address] | | | | | Metabolism | [place], | | | | | | [place] [address] | | | | | | [phone] | | | | | | | | +--------+ + + + + as of this encounter Visit Diagnoses Not on filein this encounter"
--- OUTSIDE RECORDS SUMMARY | ~2017-07-29 | XMS | Encounter Summary ---
Demographics + + + | Address | [address] | | | [place] [address] | + + + | Home Phone [...] Author | [facility] | + + + | Organization | [facility] | + + + | Address | Unknown | + + + | Phone | Unavailable | + + + Support +------+ + + + + + | Name | Relationship | Address | Phone | +------+ + + + + + ECON | [address] | | [place], | [place] [address] | +------+ + + + + + Care Team Providers + +------+-------+ | Care Corporate Account Executive Name | Role | Phone | + +------+-------+ | Antony Ribera MD | PCP | tel | + +------+-------+ Reason for Visit +--------+ + | Reason | Comments | +--------+ + | Other | Cardiac Clearance for colonscopy | +--------+ + Encounter Details +--------+ + + + + | Date | Type | Department | Care Team | Description | +--------+ + + + + | 05/29/ | Telephone | Cardiology | Elijah Whalen, | Other (Cardiac | | 2017 | | Arrhythmia at [facility] | [address] | Clearance for | | | | [address] | [address] | colonscopy) | | | | Mailcode: CH9A | [place], [place] | | | | | [facility] | [address] | | | | | and | [phone] | | | | | Floor [place], [place] | | | | | | [address] | | | | | | [phone] | | | +--------+ + + + [...] | 08/14/ | Office | Cardiology | Eljiah Whalen, | | | 2017 | Visit | | MD [address] | | | | | | [address] | | | | | | [place], [place] | | | | | | [address] | | | | | | [phone] | | | | | | | | +--------+ + + + + | 10/24/ | Appointment | Pulmonary Disease | [facility] | | | 2017 | | | [address] | | | | | | [facility] | | | | | | [place] [address] | | +--------+ + + + + | 10/24/ | Results/Int | Pulmonary Disease | | | | 2017 | erpretation | | | | +--------+ + + + + | 10/24/ | Office | Pulmonary Disease | Juana Kilgore MD | | | 2017 | Visit | | [address] | | | | | | [place], | | | | | | [place] [address] | | | | | | [phone] | | | | | | | | +--------+ + + + + | 10/29/ | Appointment | Radiology | [facility], | | | 2017 | | | [address] | | | | | | [place], [place] | | | | | | [address] | | | | | | [phone] | | | | | | | | +--------+ + + + + | 10/29/ | Office | Surgical Oncology | [facility], | | | 2017 | Visit | | [address] | | | | | | [place], [place] | | | | | | [address] | | | | | | [phone] | | | | | | | | +--------+ + + + + | 06/26/ | Office | Endocrinology, | Tapan Horowitz MD | | | 2018 | Visit | Diabetes & | [address] | | | | | Metabolism | [place], | | | | | | [place] [address] | | | | | | [phone] | | | | | | | | +--------+ + + + + as of this encounter Visit Diagnoses Not on filein this encounter"
--- OUTSIDE RECORDS SUMMARY | ~2017-07-29 | XMS | Encounter Summary ---
Demographics + + + | Address | [address] | | | [place] [address] | + + + | Home Phone [...] + + + + + ECON | [address] | | [place], | [place] [address] | +------+ + + + + + Care Team Providers + +------+-------+ | Care Tune Up Mechanic Name | Role | Phone | + +------+-------+ | Antony Ribera MD | PCP | tel | + +------+-------+ Reason for Visit + + + | Reason | Comments | + + + | Bone Density Scan | | + + + Diagnostic Testing (Routine) +--------+--------+ + + + + | Status | Reason | Specialty | Diagnoses / | Referred By | Referred To | | | | | Procedures | Contact | Contact | +--------+--------+ + + + + | Closed | | Bone | Diagnoses | Carlos Manuel | Ramiro Bne | | | | Densitometry | Disorder of | MD Tapan | [facility] | | | | | bone and | [address] | [address] | | | | | cartilage, | [address] | [address] | | | | | unspecified | Rd | Mailcode: | | | | | Procedures | [place], [place] | [facility] | | | | | BONE | [address] | for Health | | | | | DENSITY | Phone: | and Healing | | | | | PROCEDURE | [phone] | [place], [place] | | | | | | Fax: | [address] | | | | | | [phone] | Phone: | | | | | | | [phone] | | | | | | | Fax: | | | | | | | [phone] | +--------+--------+ + + + + Encounter Details +--------+---------+ + + + | Date | Type | Department | Care Team | Description | +--------+---------+ + + + | 11/29/ | Office | Bone Density at | | [facility] current | | 2017 | Visit | [facility] 1st Floor [address] | | use of inhaled | | | | [address] | | steroid (Primary | | | | Mailcode: CH8A | | Dx); Disorder of | | | | [place] [facility] | | bone and cartilage | | | | and Healing | | | | | | [place], [place] | | | | | | [address] | | | | | | [phone] | | | +--------+---------+ + + + [...] + + + as of this encounter Progress Notes HolguinYuki - 06/13/2017 11:30 AM PSTBone density scans performed. DXA scan Images are located on the Imaging Tab (PACS), and when completed, the final Interp retation report will be scanned into [employer] and attached to the Images. Thank you. in this encounter Plan of Treatment +--------+ + + + + | Date | Type | Specialty | Care Team | Description | +--------+ + + + + | 01/30/ | Office | Cardiology | Elijah Whalen, | | | 2017 | Visit | | [address] | | | | | | [address] | | | | | | [place], [place] | | | | | | [address] | | | | | | [phone] | | | | | | | | +--------+ + + + + | 10/24/ | Appointment | Pulmonary Disease | [facility] Adult | | | 2018 | | | [address] | | | | | | [facility], | | | | | | [place] | | +--------+ + + + + | 10/24/ | Results/Int | Pulmonary Disease | | | | 2017 | erpretation | | | | +--------+ + + + + | 10/24/ | Office | Pulmonary Disease | Juana Kilgore MD | | | 2017 | Visit | | [address] | | | | | | [place], | | | | | | [place] [address] | | | | | | [phone] | | | | | | | | +--------+ + + + + | 10/29/ | Appointment | Radiology | [facility], | | | 2017 | | | [address] | | | | | | [place], [place] | | | | | | [address] | | | | | | [phone] | | | | | | | | +--------+ + + + + | 10/29/ | Office | Surgical Oncology | [facility], | | | 2017 | Visit | | [address] | | | | | | [place], [place] | | | | | | [address] | | | | | | [phone] | | | | | | | | +--------+ + + + + | 06/26/ | Office | Endocrinology, | Tapan Horowitz MD | | | 2017 | Visit | Diabetes & | [address] | | | | | Metabolism | [place], | | | | | | [place] [address] | | | | | | [phone] | | | | | | | | +--------+ + + + + as of this encounter Results BONE DENSITOMETRY (06/13/2017 10:36 AM)in this encounter Visit Diagnoses + + | Diagnosis | + + | 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
--- OUTSIDE RECORDS SUMMARY | ~2017-07-29 | XMS | Encounter Summary ---
Demographics + + + | Address | [address] | | | [place] [address] | + + + | Home Phone | | + + + | Preferred Language | Unknown | + + + | Marital Status | | + + + | Christianity Affiliation | CHR | + + + [...] + + + + + ECON | [address] | | [place], | [place] [address] | +------+ + + + + + Care Team Providers + +------+-------+ | Care Fire Ranger Name | Role | Phone | + [...] + + | 06/26/ | Hospital | [facility] [address] | Ashley Lo | | | 2017 | Encounter | [address] | MD Dez [address] | | | | | [facility] | [address] [place], | | | | | [place] | [place] [address] | | | | | (MNP/OLD N) | [phone] | | | | | [place] [address] | | | | | | [phone] | | | +--------+ + + + [...] on weekends and holidays call the [facility] toll free [phone] ext. [phone] and have the GI doctor conference reservationist paged. The provider who performed your procedure [...] once | | | | | | #[id number] | daily. | | | | | [...] from the original. PRE PROCEDURE NOTE: MR# [id number] Subjective: Adriana Flynn is a 71 y.o. [...] [address] | | | | | | [place], [place] | | | | | | [address] | | | | | | [phone] | | | | | | | | +--------+ + + + + | 10/24/ | Appointment | Pulmonary Disease | [facility] Adult | | | 2017 | | | [address] | | | | | | [facility] | | | | | | [place] [address] | | +--------+ + + + + | 10/24/ | Results/Int | Pulmonary Disease | | | | 2018 | erpretation | | | | +--------+ + + + + | 10/24/ | Office | Pulmonary Disease | Juana Kilgore MD | | | 2017 | Visit | | [address] | | | | | | [place] [facility] | | | | | | [place] [address] | | | | | | [phone] | | | | | | | | +--------+ + + + + | 10/29/ | Appointment | Radiology | [facility], | | | 2017 | | | [address] | | | | | | [place], [place] | | | | | | [address] | | | | | | [phone] | | | | | | | | +--------+ + + + + | 10/29/ | Office | Surgical Oncology | [facility], | | | 2018 | Visit | | [address] | | | | | | [place], [place] | | | | | | [address] | | | | | | [phone] | | | | | | | | +--------+ + + + + | 06/26/ | Office | Endocrinology, | Tapan Horowitz MD | | | 2018 | Visit | Diabetes & | [address] | | | | | Metabolism | [place], | | | | | | [place] [address] | | | | | | [phone] | | | | | | | [...] Name: Adriana Flynn Order #: | | [id number] Date of : 1945 CSN: [id number] Admit Type: Ambulatory Room: GI 3 | | Procedure: Upper GI endoscopy Indications: | | Dysphagia Providers: ASHLEY LO MD (Doctor), UDAY | | SAM MILLER (Nurse), GAUTAM BRADY, | | Ctc Operator (Ctc Operator) Referring MD: DOUG RIBERA MD | | [...] procedure. The Olympus [id number]-[id number] Endoscope | | #[id number] was introduced through the mouth, | | [...] Name: Adriana Flynn Order #: | | [id number] Date of : 1945 CSN: [id number] Admit Type: Ambulatory Room: GI 3 | | Procedure: Colonoscopy Indications: Screening for | | colorectal malignant neoplasm Providers: ASHLEY LO, | | (Doctor), UDAY MILLER RN (Nurse), | | GAUTAM BRADY, Ctc Operator (Ctc Operator) Referring MD: DOUG AUSTIN | | MD [...] The Olympus | | [id number]-[id number] Peds Colonoscope #[id number] was | | introduced through the anus and advanced to the cecum, | | identified by appendiceal orifice and ileocecal | | valve. The quality of the bowel preparation | | was evaluated using the BBPS (Putney Bowel | | Preparation Scale) with scores [...]
--- OUTSIDE RECORDS SUMMARY | ~2017-07-29 | XMS | Encounter Summary ---
Demographics + + + | Address | [address] | | | [place] [address] | + + + | Home Phone [...] + + + + + ECON | [address] | | [place], | [place] [address] | +------+ + + + + + Care Team Providers + +------+-------+ | Care Care Navigator Name | Role | Phone | + +------+-------+ | Antony Ribera MD | PCP | tel | + +------+-------+ Reason for Visit + + + | Reason | Comments | + + + | Refill Request | [facility] [address] | + + + Encounter Details +--------+--------+ + + + | Date | Type | Department | Care Team | Description | +--------+--------+ + + + | 06/18/ | Refill | Pulmonary & | Dez Hansen, | Refill Request | | 2016 | | Critical Care | ,PhD | (PULMIC[facility]LEXHALER | | | | Medicine at | | [address]) | | | | [facility] | | | | | | [address] [facility] | | | | | | [facility] | | | | | | Mailcode: [id number] | | | | | | [facility] | | | | | | [address] [place], [place] | | | | | | [address] | | | | | | [phone] | | | +--------+--------+ + + + [...] [address] | | | | | | [place], [place] | | | | | | [address] | | | | | | [phone] | | | | | | | | +--------+ + + + + | 10/24/ | Appointment | Pulmonary Disease | [facility] Adult | | | 2017 | | | [address] | | | | | | [facility], | | | | | | [place] [address] | | +--------+ + + + + | 10/24/ | Results/Int | Pulmonary Disease | | | | 2017 | erpretation | | | | +--------+ + + + + | 10/24/ | Office | Pulmonary Disease | Juana Kilgore MD | | | 2017 | Visit | | [address] | | | | | | [place], | | | | | | [place] [address] | | | | | | [phone] | | | | | | | | +--------+ + + + + | 10/29/ | Appointment | Radiology | [facility], | | | 2017 | | | [address] | | | | | | [place], [place] | | | | | | [address] | | | | | | [phone] | | | | | | | | +--------+ + + + + | 10/29/ | Office | Surgical Oncology | [facility], | | | 2017 | Visit | | [address] | | | | | | [place], [place] | | | | | | [address] | | | | | | [phone] | | | | | | | | +--------+ + + + + | 06/26/ | Office | Endocrinology, | Tapan Horowitz MD | | | 2018 | Visit | Diabetes & | [address] | | | | | Metabolism | [place], | | | | | | [place] [address] | | | | | | [phone] | | | | | | | | +--------+ + + + + as of this encounter Visit Diagnoses Not on filein this encounter"
--- OUTSIDE RECORDS SUMMARY | ~2017-07-29 | XMS | Encounter Summary ---
Demographics + + + | Address | [address] | | | [place] [address] | + + + | Home Phone [...] + + + + + ECON | [address] | | [place], | [place] [address] | +------+ + + + + + Care Team Providers + +------+-------+ | Care Motion Picture Projectionist Apprentice Name | Role | Phone | + +------+-------+ | Antony Ribera MD | PCP | tel | + +------+-------+ Encounter Details +--------+ + + + + | Date | Type | Department | Care Team | Description | +--------+ + + + + | 07/23/ | Abstract | Cardiology | Elijah Whalen, | | | 2018 | | Arrhythmia at [facility] | [address] | | | | | [address] | [address] | | | | | Mailcode: CH9A | [place], [place] | | | | | [facility] | [address] | | | | | and Healing | [phone] | | | | | Floor [place], [place] | | | | | | [address] | | | | | | [phone] | | | +--------+ + + + [...] | | 2017 | Visit | | [address] | | | | | | [address] | | | | | | [place], [place] | | | | | | [address] | | | | | | [phone] | | | | | | | | +--------+ + + + + | 10/24/ | Appointment | Pulmonary Disease | [facility] | | | 2018 | | | [address] | | | | | | [facility], | | | | | | [place] [address] | | +--------+ + + + + | 10/24/ | Results/Int | Pulmonary Disease | | | | 2018 | erpretation | | | | +--------+ + + + + | 10/24/ | Office | Pulmonary Disease | Juana Kilgore MD | | | 2018 | Visit | | [address] | | | | | | [facility], | | | | | | [place] [address] | | | | | | [phone] | | | | | | | | +--------+ + + + + | 10/29/ | Appointment | Radiology | [facility], | | | 2018 | | | [address] | | | | | | [place], [place] | | | | | | [address] | | | | | | [phone] | | | | | | | | +--------+ + + + + | 10/29/ | Office | Surgical Oncology | [facility], | | | 2017 | Visit | | [address] | | | | | | [place], [place] | | | | | | [address] | | | | | | [phone] | | | | | | | | +--------+ + + + + | 06/26/ | Office | Endocrinology, | Tapan Horowitz MD | | | 2017 | Visit | Diabetes & | [address] | | | | | Metabolism | [place], | | | | | | [place] [address] | | | | | | [phone] | | | | | | | | +--------+ + + + + as of this encounter Visit Diagnoses Not on filein this encounter"
--- OUTSIDE RECORDS SUMMARY | ~2017-07-29 | XMS | Encounter Summary ---
Demographics + + + | Address | [address] | | | [place] [address] | + + + | Home Phone [...] + + + + + ECON | [address] | | [place], | [place] [address] | +------+ + + + + + Care Team Providers + +------+-------+ | Care Plan Examiner Name | Role | Phone | + +------+-------+ | Antony Ribera MD | PCP | tel | + +------+-------+ Encounter Details +--------+ + + + + | Date | Type | Department | Care Team | Description | +--------+ + + + + | 07/23/ | Abstract | Cardiology | Elijah Whalen, | | | 2018 | | Arrhythmia at [facility] | [address] | | | | | [address] | [address] | | | | | Mailcode: CH9A | [place], [place] | | | | | [facility] | [address] | | | | | and Healing | [phone] | | | | | Floor [place], [place] | | | | | | [address] | | | | | | [phone] | | | +--------+ + + + [...] | | 2017 | Visit | | [address] | | | | | | [address] | | | | | | [place], [place] | | | | | | [address] | | | | | | [phone] | | | | | | | | +--------+ + + + + | 10/24/ | Appointment | Pulmonary Disease | [facility] | | | 2018 | | | [address] | | | | | | [facility], | | | | | | [place] [address] | | +--------+ + + + + | 10/24/ | Results/Int | Pulmonary Disease | | | | 2018 | erpretation | | | | +--------+ + + + + | 10/24/ | Office | Pulmonary Disease | Juana Kilgore MD | | | 2018 | Visit | | [address] | | | | | | [facility], | | | | | | [place] [address] | | | | | | [phone] | | | | | | | | +--------+ + + + + | 10/29/ | Appointment | Radiology | [facility], | | | 2018 | | | [address] | | | | | | [place], [place] | | | | | | [address] | | | | | | [phone] | | | | | | | | +--------+ + + + + | 10/29/ | Office | Surgical Oncology | [facility], | | | 2017 | Visit | | [address] | | | | | | [place], [place] | | | | | | [address] | | | | | | [phone] | | | | | | | | +--------+ + + + + | 06/26/ | Office | Endocrinology, | Tapan Horowitz MD | | | 2017 | Visit | Diabetes & | [address] | | | | | Metabolism | [place], | | | | | | [place] [address] | | | | | | [phone] | | | | | | | | +--------+ + + + + as of this encounter Visit Diagnoses Not on filein this encounter"
--- OUTSIDE RECORDS SUMMARY | ~2017-07-29 | XMS | Encounter Summary ---
Demographics + + + | Address | [address] | | | [place] [address] | + + + | Home Phone [...] + + + + + ECON | [address] | | [place], | [place] [address] | +------+ + + + + + Care Team Providers + +------+-------+ | Care Lan/Wan Engineer Name | Role | Phone | + +------+-------+ | Antony Ribera MD | PCP | tel | + +------+-------+ Reason for Visit + + + | Reason | Comments | + + + | Refill Request | Xarelto | + + + Encounter Details +--------+--------+ + + + | Date | Type | Department | Care Team | Description | +--------+--------+ + + + | 06/18/ | Refill | Cardiology | Elijah Whalen, | Refill Request | | 2017 | | Arrhythmia at [facility] | MD [address] | (Xarelto) | | | | [address] | [address] | | | | | Mailcode: CH9A | [place], [place] | | | | | [facility] | [address] | | | | | and | [phone] | | | | | Floor [place], [place] | | | | | | [address] | | | | | | [phone] | | | +--------+--------+ + + + [...] Rd | | | | | | [place], [place] | | | | | | [address] | | | | | | [phone] | | | | | | | | +--------+ + + + + | 10/24/ | Appointment | Pulmonary Disease | [facility] Adult | | | 2017 | | | [address] | | | | | | [place], | | | | | | [place] [address] | | +--------+ + + + + | 10/24/ | Results/Int | Pulmonary Disease | | | | 2017 | erpretation | | | | +--------+ + + + + | 10/24/ | Office | Pulmonary Disease | Juana Kilgore MD | | | 2017 | Visit | | [address] | | | | | | [place], | | | | | | [place] [address] | | | | | | [phone] | | | | | | | | +--------+ + + + + | 10/29/ | Appointment | Radiology | [facility], | | | 2017 | | | [address] | | | | | | [place], [place] | | | | | | [address] | | | | | | [phone] | | | | | | | | +--------+ + + + + | 10/29/ | Office | Surgical Oncology | [facility], | | | 2017 | Visit | | [address] | | | | | | [place], [place] | | | | | | [address] | | | | | | [phone] | | | | | | | | +--------+ + + + + | 06/26/ | Office | Endocrinology, | Tapan Horowitz MD | | | 2017 | Visit | Diabetes & | [address] | | | | | Metabolism | [place], | | | | | | [place] [address] | | | | | | [phone] | | | | | | | | +--------+ + + + + as of this encounter Visit Diagnoses Not on filein this encounter"
--- OUTSIDE RECORDS SUMMARY | ~2017-07-29 | XMS | Encounter Summary ---
Demographics + + + | Address | [address] | | | [place] [address] | + + + | Home Phone [...] + + + + + ECON | [address] | | [place], | [place] [address] | +------+ + + + + + Care Team Providers + +------+-------+ | Care Dye Box Operator Name | Role | Phone | + +------+-------+ | Antony Ribera MD | PCP | tel | + +------+-------+ Reason for Visit + + + | Reason | Comments | + + + | Scheduling | | + + + Encounter Details +--------+ + + + + | Date | Type | Department | Care Team | Description | +--------+ + + + + | 01/08/ | Telephone | Cardiology | Elijah Whalen, | Scheduling | 2017 | | Arrhythmia at [facility] | MD [address] | | | | | [address] | [address] | | | | | Mailcode: CH9A | [place], [place] | | | | | [facility] | [address] | | | | | and | [phone] | | | | | Floor [place], [place] | | | | | | [address] | | | | | | [phone] | | | +--------+ + + + [...] Rd | | | | | | [place], [place] | | | | | | [address] | | | | | | [phone] | | | | | | | | +--------+ + + + + | 10/24/ | Appointment | Pulmonary Disease | [facility] Adult | | | 2017 | | | [address] | | | | | | [place], | | | | | | [place] [address] | | +--------+ + + + + | 10/24/ | Results/Int | Pulmonary Disease | | | | 2017 | erpretation | | | | +--------+ + + + + | 10/24/ | Office | Pulmonary Disease | Juana Kilgore MD | | | 2017 | Visit | | [address] | | | | | | [place], | | | | | | [place] [address] | | | | | | [phone] | | | | | | | | +--------+ + + + + | 10/29/ | Appointment | Radiology | [facility], | | | 2017 | | | MD [address] | | | | | | [place], [place] | | | | | | [address] | | | | | | [phone] | | | | | | | | +--------+ + + + + | 10/29/ | Office | Surgical Oncology | [facility], | | | 2017 | Visit | | [address] | | | | | | [place], [place] | | | | | | [address] | | | | | | [phone] | | | | | | | | +--------+ + + + + | 06/26/ | Office | Endocrinology, | Tapan Horowitz MD | | | 2017 | Visit | Diabetes & | [address] | | | | | Metabolism | [place], | | | | | | [place] [address] | | | | | | [phone] | | | | | | | | +--------+ + + + + as of this encounter Visit Diagnoses Not on filein this encounter"
--- OUTSIDE RECORDS SUMMARY | ~2017-07-29 | XMS | Encounter Summary ---
Demographics + + + | Address | [address] | | | [place] [address] | + + + | Home Phone [...] + + + + + ECON | [address] | | [place], | [place] [address] | +------+ + + + + + Care Team Providers + +------+-------+ | Care Combat Systems Operator Name | [...] | | 2017 | | Arrhythmia at [facility] | MD [address] | (Xarelto) | | | | [address] | [address] | | | | | Mailcode: CH9A | [place], [place] | | | | | [facility] | [address] | | | | | and | [phone] | | | | | Floor [place], [place] | | | | | | [address] | | | | | | [phone] | | | +--------+--------+ + + + [...] Rd | | | | | | [place], [place] | | | | | | [address] | | | | | | [phone] | | | | | | | | +--------+ + + + + | 10/24/ | Appointment | Pulmonary Disease | [facility] | | | 2017 | | | [address] | | | | | | [place], | | | | | | [place] [address] | | +--------+ + + + + | 10/24/ | Results/Int | Pulmonary Disease | | | | 2017 | erpretation | | | | +--------+ + + + + | 10/24/ | Office | Pulmonary Disease | Juana Kilgore MD | | | 2017 | Visit | | [address] | | | | | | [place], | | | | | | [place] [address] | | | | | | [phone] | | | | | | | | +--------+ + + + + | 10/29/ | Appointment | Radiology | [facility], | | | 2017 | | | [address] | | | | | | [place], [place] | | | | | | [address] | | | | | | [phone] | | | | | | | | +--------+ + + + + | 10/29/ | Office | Surgical Oncology | [facility], | | | 2017 | Visit | | [address] | | | | | | [place], [place] | | | | | | [address] | | | | | | [phone] | | | | | | | | +--------+ + + + + | 06/26/ | Office | Endocrinology, | Tapan Horowitz MD | | | 2017 | Visit | Diabetes & | [address] | | | | | Metabolism | [place], | | | | | | [place] [address] | | | | | | [phone] | | | | | | | | +--------+ + + + + as of this encounter Visit Diagnoses Not on filein this encounter"
--- OUTSIDE RECORDS SUMMARY | ~2017-07-29 | XMS | Encounter Summary ---
Demographics + + + | Address | [address] | | | [place] [address] | + + + | Home Phone [...] + + + + + ECON | [address] | | [place], | [place] [address] | +------+ + + + + + Care Team Providers + +------+-------+ | Care Slag Wheeler Name | Role | Phone | + +------+-------+ | Antony Ribera MD | PCP | tel | + +------+-------+ Encounter Details +--------+ + + + + | Date | Type | Department | Care Team | Description | +--------+ + + + + | 07/23/ | Abstract | Cardiology | Elijah Whalen, | | | 2018 | | Arrhythmia at [facility] | [address] | | | | | [address] | [address] | | | | | Mailcode: CH9A | [place], [place] | | | | | [facility] | [address] | | | | | and Healing | [phone] | | | | | Floor [place], [place] | | | | | | [address] | | | | | | [phone] | | | +--------+ + + + [...] | | 2017 | Visit | | [address] | | | | | | [address] | | | | | | [place], [place] | | | | | | [address] | | | | | | [phone] | | | | | | | | +--------+ + + + + | 10/24/ | Appointment | Pulmonary Disease | [facility] Adult | | | 2018 | | | [address] | | | | | | [facility], | | | | | | [place] [address] | | +--------+ + + + + | 10/24/ | Results/Int | Pulmonary Disease | | | | 2018 | erpretation | | | | +--------+ + + + + | 10/24/ | Office | Pulmonary Disease | Juana Kilgore MD | | | 2018 | Visit | | [address] | | | | | | [facility], | | | | | | [place] [address] | | | | | | [phone] | | | | | | | | +--------+ + + + + | 10/29/ | Appointment | Radiology | [facility], | | | 2018 | | | [address] | | | | | | [place], [place] | | | | | | [address] | | | | | | [phone] | | | | | | | | +--------+ + + + + | 10/29/ | Office | Surgical Oncology | [facility], | | | 2017 | Visit | | [address] | | | | | | [place], [place] | | | | | | [address] | | | | | | [phone] | | | | | | | | +--------+ + + + + | 06/26/ | Office | Endocrinology, | Tapan Horowitz MD | | | 2017 | Visit | Diabetes & | [address] | | | | | Metabolism | [place], | | | | | | [place] [address] | | | | | | [phone] | | | | | | | | +--------+ + + + + as of this encounter Visit Diagnoses Not on filein this encounter"
--- OUTSIDE RECORDS SUMMARY | ~2017-07-29 | XMS | Encounter Summary ---
Demographics + + + | Address | [address] | | | [place] [address] | + + + | Home Phone [...] + + + + + ECON | [address] | | [place], | [place] [address] | +------+ + + + + + Care Team Providers + +------+-------+ | Care Electric Utility Lineworker Name | Role | Phone | + [...] | | | | | Center at [facility] | [place], | | | | | [place] [address] | [place] [address] | | | | | [address] | [phone] | | | | | [facility] | | | | | | [facility] | | | | | | [place], | | | | | | [place] [address] | | | | | | [phone] | | | +--------+ + + + [...] | | 2017 | Visit | | [address] | | | | | | [address] | | | | | | [place], [place] | | | | | | [address] | | | | | | [phone] | | | | | | | | +--------+ + + + + | 10/24/ | Appointment | Pulmonary Disease | Tech[facility] Adult | | | 2018 | | | [address] | | | | | | [facility], | | | | | | [place] [address] | | +--------+ + + + + | 10/24/ | Results/Int | Pulmonary Disease | | | | 2017 | erpretation | | | | +--------+ + + + + | 10/24/ | Office | Pulmonary Disease | Juana Kilgore MD | | | 2017 | Visit | | [address] | | | | | | [place] [facility], | | | | | | [place] [address] | | | | | | [phone] | | | | | | | | +--------+ + + + + | 10/29/ | Appointment | Radiology | [facility], | | | 2017 | | | [address] | | | | | | [place], [place] | | | | | | [address] | | | | | | [phone] | | | | | | | | +--------+ + + + + | 10/29/ | Office | Surgical Oncology | [facility], | | | 2017 | Visit | | [address] | | | | | | [place], [place] | | | | | | [address] | | | | | | [phone] | | | | | | | | +--------+ + + + + | 06/26/ | Office | Endocrinology, | Tapan Horowitz MD | | | 2017 | Visit | Diabetes & | [address] | | | | | Metabolism | [place], | | | | | | [place] [address] | | | | | | [phone] | | | | | | | | +--------+ + + + + as of this encounter Visit Diagnoses Not on filein this encounter"
--- OUTSIDE RECORDS SUMMARY | ~2017-07-29 | XMS | Clinical Summary ---
Demographics + + + | Address | [address] | | | [place] [address] | + + + | Home Phone | | + + + | Preferred Language | Unknown | + + + | Marital Status | | + + + | Sikhism Affiliation | CHR | + + + | Race | White | + + + | Ethnic Group | Not or | + + + Author + + + | Author | [facility] | + + + | Organization | [facility] | + + + | Address | Unknown | + + + | Phone | Unavailable | + + + Support +------+ + + + + + | Name | Relationship | Address | Phone | +------+ + + + + + ECON | [address] | | [place], | [place] [address] | +------+ + + + + + Care Team Providers + +------+-------+ | Care Slat Basket Top Maker Name | Role | Phone | + +------+-------+ | Doug Ribera MD | PP | tel | + +------+-------+ Source Comments EDMAR is fully live on both EpicCare Ambulatory and EpicCare InPatient.[facility] Allergies + + + + + + | Active Allergy | Reactions | Severity | Noted | Comments | | | | | Date | | + + + + + + | Adhesive | Rash | Medium | 01/03/20 | | | Tape-Silicones | | | 16 | | + + + + + + | Albuterol | Tachycardia, | Low | 03/07/20 | | | | Palpitations | | 07 | | + + + + + + | Diltiazem Hcl | Hives | Medium | 06/25/20 | | | | | | 12 | | + + + + + + | Celecoxib | Diarrhea, Cough, | Low | 03/07/20 | | | | Unknown | | 07 | | + + + + + + | Rosuvastatin Calcium | muscle/Jt Pain | Medium | 09/07/19 | | | | | | 10 | | + + + + + + | Lactose | Cough | Medium | 11/03/19 | | | | | | 10 | Intestinal/congestio | | | | | | n. | | | | | | Intestinal/congestio | | | | | | n. | + + + + + + | Propafenone | Diarrhea | Low | 03/07/20 | Intestinal | | | | | 07 | distress. | + + + + + + | Sulfa (Sulfonamide | Swelling-Facial, | High | 07/01/20 | | | Antibiotics) | Unknown | | 04 | | + + + + + + | Tape Adherent | Rash | Low | 07/06/20 | Ok with coban | | | | | 07 | | + + + + + + Current Medications + + + +---------+------+------+-------+ | Prescription | Sig. | Disp. | Refills | Star | End | Statu | | | | | | t | Date | s | | | | | | Date | | | + + + +---------+------+------+-------+ | Vitamin A-Vitamin | take 1 capsule by | | | | | Activ | | C-Vit E-Min | oral route once | | | | | e | | (ANTIOXIDANT | daily with food | | | | | | | FORMULA) Oral | | | | | | | | Capsule | | | | | | | + + + +---------+------+------+-------+ | MULTIVITAMIN OR | one daily | | | | | Activ | | | | | | | | e | + + + +---------+------+------+-------+ | calcium | 2 tabs in evening | | | | | Activ | | citrate-vitamin D | and liquid calcium | | | | | e | | (CITRACAL + D) | citrate in AM | | | | | | | 315-200 mg-unit Oral | | | | | | | | Tablet | | | | | | | + + + +---------+------+------+-------+ | VITAMIN D ORAL | 3000 IU daily | | | | | Activ | | | | | | | | e | + + + +---------+------+------+-------+ | rabeprazole | Take 20 mg by mouth | | | | | Activ | | (ACIPHEX) 20 mg Oral | every twelve hours. | | | | | e | | Tablet, Delayed | | | | | | | | Release (E.C.) | | | | | | | + + + +---------+------+------+-------+ | ezetimibe (ZETIA) | Take 10 mg by mouth | | | | | Activ | | 10 mg Oral Tablet | once daily. | | | | | e | + + + +---------+------+------+-------+ | LORAZEPAM 1 mg | 0.5 Tabs Q HS PRN. | | | 11/2 | | Activ | | Oral tablet | | | | 20 | | e | | | | | | 12 | | | + + + +---------+------+------+-------+ | | 1 drop 3 Times Daily | | | | | Activ | | carboxymethylcellulo | | | | | | e | | se 0.5 % ophthalmic | | | | | | | | dropperette | | | | | | | + + + +---------+------+------+-------+ | lactobac cmb | Take by mouth once | | | | | Activ | | #2-[id number]-[id number] | daily. | | | | | e | | 300-250 million | | | | | | | | cell-mg oral capsule | | | | | | | + + + +---------+------+------+-------+ | ofloxacin 0.3 % | as needed. | | | 06/0 | | Activ | | ophthalmic drops | | | | 9/20 | | e | | | | | | 16 | | | + + + +---------+------+------+-------+ | ipratropium 0.02 % | Inhale 2.5 mL(ONE | 280 mL | 3 | 06/2 | | Activ | | inhalation solution | AMPULE) via | | | 0/20 | | e | | | nebulizer every six | | | 16 | | | | | hours as needed | | | | | | | | (Shortness of | | | | | | | | breath). | | | | | | + + + +---------+------+------+-------+ | levalbuterol 1.25 | Inhale 3 mL every | 336 mL | 6 | 03/2 | | Activ | | mg/3 mL inhalation | six hours as needed | | | 0/20 | | e | | solution for | (shortness of | | | 17 | | | | nebulizationIndicati | breath). | | | | | | | ons: Acute Asthma | Indications: Acute | | | | | | | Attack | Asthma Attack | | | | | | + + + +---------+------+------+-------+ | tiotropium 1.25 | Inhale 2 puffs once | 1 | 11 | / | | Activ | | mcg/actuation | daily. Indications: | Inhaler | | 0/20 | | e | | inhalation | Maintenance Therapy | | | 17 | | | | mistIndications: | for Asthma | | | | | | | Maintenance Therapy | | | | | | | | for Asthma | | | | | | | + + + +---------+------+------+-------+ | fluticasone | Instill 1 spray into | 16 each | 5 | 01/13 | | Activ | | (FLONASE) 50 | each nostril two | | | 220 | | e | | mcg/actuation nasal | times daily. | | | 17 | | | | spray,suspensionIndi | | | | | | | | cations: Chronic | | | | | | | | sinusitis, | | | | | | | | unspecified location | | | | | | | + + + +---------+------+------+-------+ | metoprolol | Take 75mg TID. May | 450 | 3 | 03/17 | | Activ | | tartrate 50 mg oral | take an additional | tablet | | 220 | | e | | tablet | 25mg PRN | | | 17 | | | | | palpitations | | | | | | + + + +---------+------+------+-------+ | potassium chloride | Take 1 tablet by | 30 | 5 | 09/2 | | Activ | | SR 20 mEq oral | mouth once daily. | tablet | | 2/20 | | e | | tablet,ER | | | | 17 | | | | particles/crystals | | | | | | | + + + +---------+------+------+-------+ | polyethylene | Mix 17 g in liquid | | | | | Activ | | glycol (MIRALAX) 17 | and drink once | | | | | e | | gram/dose oral | daily. | | | | | | | powder | | | | | | | + + + +---------+------+------+-------+ | levalbuterol 45 | Inhale 1-2 puffs by | 1 | 6 | 11/0 | | Activ | | mcg/actuation | mouth every six | Inhaler | | 1/20 | | e | | inhalation HFA | hours as needed. | | | 17 | | | | aerosol | Indications: | | | | | | | inhalerIndications: | Bronchospasm | | | | | | | Bronchospasm | Prevention | | | | | | | Prevention | | | | | | | + + + +---------+------+------+-------+ | PULMICORT | INHALE THREE PUFFS | 3 | 6 | 12/1 | | Activ | | FLEXHALER 180 | BY MOUTH TWICE A DAY | Inhaler | | 5/20 | | e | | mcg/actuation | | | | 17 | | | | inhalation aerosol | | | | | | | | powdr breath | | | | | | | | activated | | | | | | | + + + +---------+------+------+-------+ | rivaroxaban 20 mg | Take 1 tablet by | 90 | 3 | 12/0 | | Activ | | oral tablet | mouth once daily | tablet | | 4/20 | | e | | | with dinner | | | 17 | | | + + + +---------+------+------+-------+ Active Problems + + + | Problem | Noted Date | + + + | Paroxysmal atrial fibrillation (HCC) | 11/14/2016 | + + + | Asthma | 02/03/2014 | + + + | Sjogren's syndrome (HCC) | 09/08/2008 | + + + | Breast cancer (HCC) | 05/21/2008 | + + + | Disorder of bone and cartilage | 12/30/2007 | + + + + + | Overview: Devaughn | | DXA 06/13/17: L -1.4 H -1.5 | | DXA 06/02/15: L -1.6 H -1.9 | | DXA 06/06/13; L -1.6 H -1.9 | | DXA 04/28/11: L -1.8 H -1.8 | | DXA 01/27/10: L -1.9 H -1.6 | | DXA 12/28/08: L -1.9 H -1.5 | + + Resolved Problems + + + + | Problem | Noted | Resolved | | | Date | Date | + + + + | Extrinsic asthma | 10/28/19 | | | | 13 | 7 | + + + + + + | Overview: ICD10 | + + + + + + | Deformity and disproportion of reconstructed breast | 09/09/19 | | | | 13 | 3 | + + + + | History of DVT (deep vein thrombosis) | 06/26/20 | | | | 12 | 7 | + + + + | Skin lesion | 07/20/19 | | | | 12 | 5 | + + + + | Thyroid nodule | 12/30/19 | | | | 09 | 7 | + + + + + + | Overview: May 2011 US: Scattered sub-cm nodules | | December 2008 US: 5 mm Right cyst | + + + + + + | Other pulmonary embolism and infarction | 09/19/19 | | | | 09 | 5 | + + + + | Pulmonary hypertension | 09/08/19 | | | | 09 | 9 | + + + + | Dyspnea | 08/13/19 | | | | 09 | 5 | + + + + | Lymphedema | 11/01/19 | | | | 08 | 5 | + + + + | Nausea with vomiting | 08/15/19 | | | | 08 | 5 | + + + + | Encounter for antineoplastic chemotherapy | 08/15/19 | | | | 08 | 5 | + + + + | Acquired absence of breast and nipple | 03/27/20 | | | | 07 | 7 | + + + + | Carcinoma in situ of breast | 03/07/20 | | | | 07 | 7 | + + + + | Atrial tachycardia (HCC) | | | | | | 7 | + + + + + + | Overview: <PROVIDER>ROBERT TUCKER | + + Encounters +--------+ + + + + | Date | Type | Specialty | Care Team | Description | +--------+ + + + + | 07/24/ | Documentati | | Elijah Whalen, | | | 2017 | on | | MD | | +--------+ + + + + | 07/23/ | Abstract | | Elijah Whalen, | | | 2017 | | | MD | | +--------+ + + + + | 07/23/ | Telephone | | Elijah Whalen, | Scheduling | | 2017 | | | MD | | +--------+ + + + + | 07/23/ | Abstract | | Elijah Whalen, | | | 2017 | | | MD | | +--------+ + + + + | 07/19/ | Abstract | | Elijah Whalen, | | | 2017 | | | MD | | +--------+ + + + + | 07/19/ | Abstract | | Elijah Whalen, | | | 2017 | | | | | +--------+ + + + + | 07/19/ | Documentati | | Elijah Whalen, | | | 2017 | on | | | | +--------+ + + + + | 06/29/ | MyChart | | Juana Kilgore MD | RE: Luke wilkins | | 2016 | Encounter | | | | +--------+ + + + + | 06/27/ | Telephone | | Ashley Lo | Telephone follow-up | | 2016 | | | MD Dez | (06/26/17) | +--------+ + + + + | 12/12/ | Hospital | | Ashley Lo | | | 2017 | Encounter | | MD Dez | | +--------+ + + + + | 06/19/ | Telephone-S | | | Pre-operative | | 2016 | cheduled | | | evaluation | +--------+ + + + + | 06/19/ | Anesthesia | | Fallon Lowery RN | | | 2017 | Event | | | | +--------+ + + + + | 06/18/ | Refill | | Elijah Whalen, | Refill Request | | 2016 | | | | (Xarelto) | +--------+ + + + + | 06/18/ | Refill | | Dez Hansen, | Refill Request | | 2016 | | | PhD CARISSA | ([facility] | | | | | | [address]) | +--------+ + + + + | 06/13/ | Lab | | | Other specified | | 2016 | | | | disorders of bone | | | | | | density and | | | | | | structure, | | | | | | unspecified site | | | | | | (CODE) ; Disorder of | | | | | | bone and cartilage; | | | | | | Thyroid nodule | +--------+ + + + + | 06/13/ | Office | | Tapan Horowitz MD | Disorder of bone and | | 2016 | Visit | | | cartilage (Primary | | | | | | Dx); Thyroid nodule; | | | | | | Other specified | | | | | | disorders of bone | | | | | | density and | | | | | | structure, | | | | | | unspecified site | | | | | | (CODE) | +--------+ + + + + | 06/13/ | Office | | | alf current | | 2016 | Visit | | | use of inhaled | | | | | | steroid (Primary | | | | | | Dx); Disorder of | | | | | | bone and cartilage | +--------+ + + + + | 06/13/ | [facility] | | Tapan Horowitz MD | labs | | 2016 | Encounter | | | | +--------+ + + + + | 05/30/ | Outside | | Doug Ribera | | | 2016 | Referral | | MD Saman | | | | Order | | | | +--------+ + + + + | 05/29/ | Telephone | | Elijah Whalen, | Other (Cardiac | | 2016 | | | | Clearance for | | | | | | colonscopy) | +--------+ + + + + | 05/16/ | Office | | Juana Kilgore MD | Asthma, unspecified | | 2016 | Visit | | | asthma severity, | | | | | | unspecified whether | | | | | | complicated, | | | | | | unspecified whether | | | | | | persistent (Primary | | | | | | Dx) | +--------+ + + + + | 05/16/ | Office | | Elijah Whalen, | Atrial tachycardia | | 2016 | Visit | | MD | ([facility]) (Primary Dx); | | | | | | Paroxysmal atrial | | | | | | fibrillation ([facility]) | +--------+ + + + + from Last 3 Months Immunizations + + + + | Name | Dates Previously Given | Next Due | + + + + | Influenza, seasonal, | 05/03/2017 | | | intradermal pfree | | | + + + + | Influenza, split | 04/17/2008 | | + + + + | Pneumococcal 23 | 05/03/2017 | | + + + + Family History + + +------+ + | Medical History | Relation | Name | Comments | + + +------+ + | Additional Family | Mother | | osteoporosis/hip fracture | | History | | | | + + +------+ + | Diabetes | | | | + + +------+ + | Heart Disease | | | | + + +------+ + + +------+--------+ + | Relation | Name | Status | Comments | + +------+--------+ + | Mother | | | | + +------+--------+ + Social History + +-------+ +--------+------+ | [...] AM PST | + + + + Plan of Treatment +--------+ + + + + | Date | Type | Specialty | Care Team | Description | +--------+ + + + + | 08/14/ | Office | | Elijah Whalen, | | | 2018 | Visit | | [address] | | | | | | [address] | | | | | | [place], [place] | | | | | | [address] | | | | | | [phone] | | | | | | | | +--------+ + + + + | 10/24/ | Appointment | | [facility] Adult | | | 2018 | | | [address] | | | | | | [facility], | | | | | | [place] [address] | | +--------+ + + + + | 10/24/ | Results/Int | | | | | 2017 | erpretation | | | | +--------+ + + + + | 10/24/ | Office | | Juana Kilgore MD | | | 2017 | Visit | | [address] | | | | | | [facility], | | | | | | [place] [address] | | | | | | [phone] | | | | | | | | +--------+ + + + + | 10/29/ | Appointment | | [facility], | | | 2017 | | | [address] | | | | | | [place], [place] | | | | | | [address] | | | | | | [phone] | | | | | | | | +--------+ + + + + | 10/29/ | Office | | [facility], | | | 2017 | Visit | | [address] | | | | | | [place], [place] | | | | | | [address] | | | | | | [phone] | | | | | | | | +--------+ + + + + | 06/26/ | Office | | Tapan Horowitz MD | | | 2017 | Visit | | [address] | | | | | | [place], | | | | | | [place] [address] | | | | | | [phone] | | | | | | | | +--------+ + + + + + + + + + | Health Maintenance | Due Date | Last Done | Comments | + + + + + | INFLUENZA VACCINE | Completed | 05/03/2017, 05/29/2016, | | | (FLU SHOT) | | 06/02/2015, Additional history | | | | | exists | | + + + + + | PPSV PNEUMOCOCCAL | Completed | 05/03/2017 | | | VACCINE | | | | + + + + + Implants + +------+--------+ +--------+--------+--------+ | Implanted | Type | Area | Manufacture | Device | Expira | Model | | | | | r | | tion | / | | | | | | Identi | Date | Serial | | | | | | fier | | / Lot | + +------+--------+ +--------+--------+--------+ | [place] 450cc 12.7x10.8x7.0cm | | Right: | | | 12/31/ | 354-62 | | Style: [id number]: Qty: 1 | | Chest | | | 2015 | 13 | | on 06/26/2012 by John, | | | | | | /[id number] | | Kelsi Peguero MD | | | | | | 41-039 | | | | | | | | | | | | | | | | /[id number] | | | | | | | | 41 | + +------+--------+ +--------+--------+--------+ | Implant Shreyae Style 20 | | Right: | ALLERGAN | | 05/06/ | 20-450 | | High Profile 450cc - | | Chest | | | 2016 | | | [id number]: Qty: 1 on | | | | | | /[id number] | | 10/04/2012 by Alla, | | | | | | 111 / | | Errol Holman MD | | | | | | | + +------+--------+ +--------+--------+--------+ Procedures + +--------+ + + + | [...] | | + +--------+ + + + from Last 3 Months Results EGD (06/26/2017 10:22 AM) + + + | Specimen | Performing Laboratory | + + + | | [facility] | + + + + + | Narrative | + + | Procedure Date: 06/26/2017 Patient Name: Adriana Flynn Order #: | | [id number] Date of : 1945 CSN: [id number] Admit Type: Ambulatory Room: GI 3 | | Procedure: Upper GI endoscopy Indications: | | Dysphagia Providers: ASHLEY LO MD (Doctor), UDAY | | SAM VIZCARRA (Nurse), GAUTAM BRADY, | | Centrifugal Wax Molder (Centrifugal Wax Molder) Referring MD: DOUG RIBERA MD | | [...] procedure. The Olympus [id number]-[id number] Endoscope | | #[id number] was introduced through the mouth, | | [...] Name: Adriana Flynn Order #: | | [id number] Date of : 1945 CSN: [id number] Admit Type: Ambulatory Room: GI 3 | | Procedure: Colonoscopy Indications: Screening for | | colorectal malignant neoplasm Providers: ASHLEY LO, | | (Doctor), UDAY VIZCARRA RN (Nurse), | | GAUTAM BRADY, Centrifugal Wax Molder (Centrifugal Wax Molder) Referring MD: DOUG AUSTIN | | MD [...] The [employer] | | PCF-H190L Peds Colonoscope #[id number] was | | introduced through the anus and advanced to the cecum, | | identified by appendiceal orifice and ileocecal | | valve. The quality of the bowel preparation | | was evaluated using the BBPS ([place] Bowel | | Preparation Scale) with scores [...] to: DOUG RIBERA MD | + + VITAMIN D, 25-HYDROXY, SERUM (06/13/2017 1:00 PM) + + + + | Component | Value | Ref Range | + + + + | VITAMIN D 25 HYDROXY | 29.0 (L) | 30 - 80 ng/mL | + + + + + + + | Specimen | Performing Laboratory | + + + | Blood | [facility], [address] | | | [place] [id number] | + + + + + | Narrative | + + | Reference Interval: 0-18years: Deficiency: <20 ng/mL | | Optimum level: >or=20 | | ng/mL >18years: | | Deficiency: <20 ng/mL | | Insufficiency: 20-29 ng/mL Optimum Level: 30-80 ng/mL | | High: 81-150 ng/ml | | Toxic: >150 ng/mL | + + TSH (06/13/2017 1:00 PM) + +-------+ + | Component | Value | Ref Range | + +-------+ + | TSH | 1.78 | 0.47 - 7.11 mIU/L | + +-------+ + + + + | Specimen | Performing Laboratory | + + + | Blood | [facility], [address] [place] [address] | | | [place] [address] | + + + + + | Narrative | + + | TSH reference ranges are influenced by a variety of environmental influences, age, | | gender and ethnicity. The supplied reference limits are based on published values | | utilizing a similar TSH assay, and should be interpreted with caution. | + + BONE DENSITOMETRY (06/13/2017 10:36 AM)12 LEAD ECG (05/16/2017 12:40 PM) + + [...] Laboratory | + + + | | [facility] [address] | | | [place] [address] | + + + from Last 3 Months
--- OUTSIDE RECORDS SUMMARY | ~2017-07-29 | XMS | Encounter Summary ---
Demographics + + + | Address | [address] | | | [place] [address] | + + + | Home Phone [...] + + + + + ECON | [address] | | [place], | [place] [address] | +------+ + + + + + Care Team Providers + +------+-------+ | Care Architecture Professor Name | Role | Phone | + +------+-------+ | Antony Ribera MD | PCP | tel | + +------+-------+ Encounter Details +--------+---------+ + + + | Date | Type | Department | Care Team | Description | +--------+---------+ + + + | 05/16/ | Office | Cardiology | Elijah Whalen, | Atrial tachycardia | | 2017 | Visit | Arrhythmia at [facility] | [address] | ([facility]) (Primary Dx); | | | | [address] | [address] | Paroxysmal atrial | | | | Mailcode: [id number] | [place], [place] | fibrillation (HCC) | | | | [facility] | [address] | | | | | and | [phone] | | | | | Floor [place], [place] | | | | | | [address] | | | | | | [phone] | | | +--------+---------+ + + + [...] get an ECG at the hospital in [place] 2 - If your leg swelling or [...] (HCC) 07/20 also episode in setting of [place] virus in 05/2012 which was thougth to be AF, but likely just AT. Atrial tachycardia (HCC) RA stacey tach ablated 2004 at [facility]. 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 [facility] #3-zhi-thfnagepmb 300-250 million cell-mg oral capsule Take by [...] to be done either locally or at [facility] 4 - she will see Francheska [...] Elijah Whalen MD Cardiovascular Medicine - Electrophysiology [facility] Cardiovascular [place] at [facility] in this encounter Plan of Treatment +--------+ + + + + | Date | Type | Specialty | Care Team | Description | +--------+ + + + + | 08/14/ | Office | Cardiology | Elijah Whalen, | | | 2017 | Visit | | [address] | | | | | | [facility] | | | | | | [place], [place] | | | | | | [address] | | | | | | [phone] | | | | | | | | +--------+ + + + + | 10/24/ | Appointment | Pulmonary Disease | Tech Pfellen Adult | | | 2018 | | | [address] | | | | | | [facility], | | | | | | [place] [address] | | +--------+ + + + + | 10/24/ | Results/Int | Pulmonary Disease | | | | 2018 | erpretation | | | | +--------+ + + + + | 10/24/ | Office | Pulmonary Disease | Juana Kilgore MD | | | 2017 | Visit | | [address] | | | | | | [facility], | | | | | | [place] [address] | | | | | | [phone] | | | | | | | | +--------+ + + + + | 10/29/ | Appointment | Radiology | [facility], | | | 2018 | | | [address] | | | | | | [place], [place] | | | | | | [address] | | | | | | [phone] | | | | | | | | +--------+ + + + + | 10/29/ | Office | Surgical Oncology | [facility], | | | 2017 | Visit | | [address] | | | | | | [place], [place] | | | | | | [address] | | | | | | [phone] | | | | | | | | +--------+ + + + + | 06/26/ | Office | Endocrinology, | Tapan Horowitz MD | | | 2017 | Visit | Diabetes & | [address] | | | | | Metabolism | [place], | | | | | | [place] [address] | | | | | | [phone] | | | | | | | [...] Laboratory | + + + | | [facility] [address] [place] [address] | | | [place] [address] | + + + in this encounter Visit Diagnoses + + | Diagnosis | + + | Atrial tachycardia (HCC) - Primary | + + | Other specified cardiac dysrhythmias | + + | Paroxysmal atrial fibrillation (HCC) | + + | Atrial fibrillation | + +
--- OUTSIDE RECORDS SUMMARY | ~2017-07-29 | XMS | Encounter Summary ---
Demographics + + + | Address | [address] | | | [place] [address] | + + + | Home Phone [...] + + + + + ECON | [address] | | [place], | [place] [address] | +------+ + + + + + Care Team Providers + +------+-------+ | Care Pricing Strategist Name | Role | Phone | + +------+-------+ | Antony Ribera MD | PCP | tel | + +------+-------+ Reason for Visit Office Visit - E/M Services (Routine) +--------+--------+ + + + + | Status | Reason | Specialty | Diagnoses / | Referred By | Referred To | | | | | Procedures | Contact | Contact | +--------+--------+ + + + + | Closed | | Pulmonary | | Bacilio | [facility] | | | | Disease | | Antony | [facility] | | | | | | MD Saman | [address] | | | | | | [place] | [address] | | | | | | INTERNAL | Mailcode: | | | | | | MEDICINE | [id number] | | | | | | [address] | Physicians | | | | | | [address] | [address] | | | | | | [address] | [place], [place] | | | | | | [place], | [address] | | | | | | [place] [address] | Phone: | | | | | | Phone: | [phone] | | | | | | [phone] | Fax: | | | | | | Fax: | [phone] | | | | | | [phone] | | +--------+--------+ + + + + Encounter Details +--------+---------+ + + + | Date | Type | Department | Care Team | Description | +--------+---------+ + + + | 05/16/ | Office | Pulmonary & | Juana Kilgore MD | Asthma, unspecified | | 2017 | Visit | Critical Care | [address] | asthma severity, | | | | Medicine at | [facility], | unspecified whether | | | | [facility] | [place] [address] | complicated, | | | | [address] [facility] | [phone] | unspecified whether | | | | [facility] | | persistent (Primary | | | | Mailcode: [facility]67 | | Dx) | | | | [address] | | | | | | [address] [place], [place] | | | | | | [address] | | | | | | [phone] | | | +--------+---------+ + + + [...] + + + | Blood Pressure | 131/74 | 05/16/2017 2:59 PM PDT | + + + + | Pulse | 64 | 05/16/2017 2:59 PM PDT | + + + + | Temperature | 36.2 C (97.2 F) | 05/16/2017 2:59 PM PDT | + + + + | Respiratory Rate | 14 | 05/16/2017 2:59 PM PDT | + + + + | Oxygen Saturation | 97% | 05/16/2017 2:59 PM PDT | + + + + | Inhaled Oxygen | - | - | | Concentration | | | + + + + | Weight | 72.8 kg (160 lb 6.4 | 05/16/2017 2:59 PM PDT | | | oz) | | + + + + | Height | 166.4 cm (5' 5.51") | 05/16/2017 2:59 PM PDT | + + + + | Body Mass Index | 26.28 | 05/16/2017 2:59 PM PDT | + + + + in this encounter Instructions Patient Instructions - Juana Kilgore MD - 05/16/2017 3:05 PM PDTWhat is my diagnosis/What am I being treated for? - asthma What is my plan for today s visit (what tests I have to do when I leave, how am I suppose d to use my medications)? - keep on Pulmicort - 2 or 3 puffs twice a day - ok to use ipratropium twice a day (up to 4 times a day is OK) - until your cough has down, use nebulizers twice a day - keep using fluticasone nasal spray - Keep using tiotropium inhaler What is the name of the doctor I saw today? -Juana Kilgore MD How do I get in touch with the doctor(s) in case I have a question? -Call [phone] We recommend signing up for sourceasy our secure online messaging system that will [...] or present to the nearest Emergency Room. in this encounter Progress Notes Juana Kilgore MD - 05/16/2017 3:05 PM PDTFormatting of this note may be different from zachariah garcía original. Chief Complaint / ID: 71 year old woman with asthma Interval History: Ms Flynn is a 70 year-old woman returning to pulmonary clinic for managem ent of moderate persistent asthma. Her pulmonary history is also notable for Sjogren syndrom e and prior PE. She was last seen in 09/[address] Hansen. At that time, the plan was: - Levalbuterol for rescue (nebulizer) - chosen due to significant atrial arrhythmia issues (A fib, A tach, PACs) - Start tiotropium mist - Continue budesonide to 1080 mcg daily (High dose) - return in 6 mos - add zileuton or similar LTA if symptoms were not controlled on the above regimen Since last visit, she feels her breathing is a little worse because she just had a cold. It is always worse after getting a cold - typical in the spring and fall. About a month ago daniel garcía saw her PCP who gave her a prednisone burst. Said she sounded clear, had no fever. Got 20m g prednisone for 4-5 days. Her cough persists since then but is improved (initially she had clear sputum, now it is nonproductive). Codeine containing cough syrup helped. She sleeps w ith a humidifier. Has GERD but elevates the head of the bed and has done so for some time. S he has not had a pneumonia in a long time. Not on a LABA or on albuterol due to her atrial a rrhythmias. She just got her flu shot and PCV13 at her PCP office. She is still using: - pulmicort- usually 2 puffs twice a day, doesn't like to do 3 - tiotropium - levalbuterol prn - tries not to use, unclear how often she would use if didn't limit hers elf - ipratropium prn - fluticasone and ipratropium nasal spray ACT a little difficult to quantify but she is probably in the 11 - 13 range. She says this is due to being sick now but it's hard to quantify how she was doing a month ago. Recalls se mary abdominal pain on montelukast previously and does not want to try this agent. Already p ays out of pocket for several meds so prices are a major consideration for her. In general s he would prefer to be on fewer meds. Past medical, surgical and social history were reviewed and are unchanged except as noted red aburto. H Past Medical History Diagnosis Date Sjogrens syndrome (HCC) 1995 Fibromyalgia 1995 Mitral valve prolapse 1989 GERD (gastroesophageal reflux disease) 1995 Asthma 1999 TMJ (dislocation of temporomandibular joint) Fibrocystic disease of breast 1978 Diverticul disease small and large intestine, no perforati or abscess Skin cancer back Small bowel obstruction (HCC) 07/20,10/19,02/19 Atrial tachycardia (HCC) 07/20 also episode in setting of [place] virus in 05/2012 which was thougth to be AF, but likel y just AT. Bursitis 2006 Plantar fascial fibromatosis 2007 plantar fascial tear Osteopenia 12/30/2007 Breast cancer (HCC) 02/2007 s/p chemo with taxotere/cytoxan Shingles Pulmonary embolus (HCC) 09/2008 Deep vein thrombosis of lower extremity (HCC) Atrial tachycardia (HCC) RA stacey tach ablated 2004 at [facility]. Repeat EPS showed only non-sustained left atrial tac hycardia Medications Current Outpatient Prescriptions Medication Sig budesonide (PULMICORT [...] as needed (Shortness of breath). lactobac b #[id number] 300-250 million cell-mg oral capsule Take by [...] daily. predniSONE 20 mg oral tablet Take 2 tablets by mouth once daily for [address] Bryanna castañeda or Dr Kilgore if using Indications: Asthma Exacerbation rabeprazole (ACIPHEX) 20 mg Oral Tablet, Delayed [...] current facility-administered medications for this visit. ROS - no LE edema, no bleeding, no weight loss. Otherwise pertinent positives and negatives are noted above. Physical Exam BP 131/74 | Pulse 64 | Temp (Src) 36.2 C (97.2 F) (Forehead) | RR 14 | Ht 1.664 m (5' 5 .51") | Wt 72.8 kg (160 lb 6.4 oz) | SpO2 97% | BMI 26.28 kg/(m^2) Pillow elderly lady in no distress Mallampati I airway Shoddy anterior cervical adenopathy, no posterior cervical adenopathy Breathing and speaking easily on room air. Occasional dry cough. No crackles, wheezes, or r honchi on auscultation - lungs are clear RRR without mumurs No clubbing No edema No apparent rash Data Reviewed Today Imaging Reviewed CT images from 2013 and 2010 which show tiny nodules. I also reveiwed the read of the 2014 CT which notes that nodules have either resolved or remained small (on the order o f 2-4 mm) and were not felt to need further follow up. PFTs Ped Pre Spirometry Latest Ref Rng & Units 10/02/2016 10/22/2012 FVC PRE 3.02 L 2.32 2.69 FVC PRE (%REF) % 76 82 FEV1 PRE 2.28 L 1.63 1.75 FEV1 PRE (%REF) % 71 70 FEV1/FVC PRE 75 % 70 65 FEV1/FVC PRE (%REF) % 93 - RBT60-97% PRE 1.82 L/sec 0.98 0.89 CEI43-66% PRE (%REF) % 53 43 PEF PRE 5.57 L/sec 5.52 6.52 PEF PRE (%REF) % 99 108 My interpretation of the most recent spirometry is of symmetrically reduced FVC and FEV1 wi th preserved ratio. However, the expiratory limb of the flow-volume loop is somewhat scooped , suggesting obstruction. Compared to 2013, the FEV1 has not significantly changed (within 1 0% variation) but the FVC has declined 370 mL. Labs IgE 13 in 2009 No eosinophilia (last checked 6100-0578) IMPRESSION Ms. Flynn is a 71 year old woman with asthma who is recovering from an exacerbation - likel y triggered by a URI. She is still coughing but has improved. No clinical concern for pneumo shane. Her asthma control is not optimal but we are limited in options. She does not want to t ry zileuton due to its exorbitant cost and is unwilling to re-trial montelukast given signif icant abdominal pain she experienced last time. Her rate of exacerbation requiring steroids (about once a year) is acceptable for her and she prefers not to add medications. She is mod ifying her GERD and post nasal drainage. Her worsened FVC could be due either to air trapping (i.e. Worsened asthma control) or conc ommittant restriction (no evidence of this thus far). Lung volumes could elucidate this and we'll get them next time. I discussed with her that options would be to add more inhaled steroids (go to 3 puffs BID on asmanex or add another agent) - she declined; recheck IgE and eosinophils - we both agree she is not using enough steroid to warrant the cost and hassle of an infusion like omalizum ab or mepolizumab; or a LTA - not a good option as above. RECOMMENDATIONS & PLAN 1. In the short term, while recovering from exacerbation: use nebulizer twice a day to help with cough 2. After recovery, I counseled her that the nebulizers are as needed but can be used up to 4 times daily 3. I continue to support use of levalbuterol in this patient with significant atrial arrhyt hmias 4. Consider repeat allergy testing if has another exacerbation sooner than later 5. RTC 5-6 months will PFTS. 6. If cough worsens again rather than continue to improve, I would have her PCP get CXR loc ally. I spent 38 minutes with Ms Flynn, at least 50% of which was spent counseling her regarding PFTs, asthma, and options for improved asthma control. Juana Kilgore MD [facility] Attending Physician in this encounter Plan of Treatment +--------+ + + + + | Date | Type | Specialty | Care Team | Description | +--------+ + + + + | 08/14/ | Office | Cardiology | Elijah Whalen, | | | 2017 | Visit | | [address] [facility] | | | | | | [facility] | | | | | | [place], [place] | | | | | | [address] | | | | | | [phone] | | | | | | | | +--------+ + + + + | 10/24/ | Appointment | Pulmonary Disease | Cheng Christina Adult | | | 2018 | | | [address] | | | | | | [facility], | | | | | | [place] [address] | | +--------+ + + + + | 10/24/ | Results/Int | Pulmonary Disease | | | | 2018 | erpretation | | | | +--------+ + + + + | 10/24/ | Office | Pulmonary Disease | Juana Kilgore MD | | | 2017 | Visit | | [address] | | | | | | [facility], | | | | | | [place] [address] | | | | | | [phone] | | | | | | | | +--------+ + + + + | 10/29/ | Appointment | Radiology | [facility], | | | 2017 | | | [address] | | | | | | [place], [place] | | | | | | [address] | | | | | | [phone] | | | | | | | | +--------+ + + + + | 10/29/ | Office | Surgical Oncology | [facility], | | | 2017 | Visit | | [address] | | | | | | [place], [place] | | | | | | [address] | | | | | | [phone] | | | | | | | | +--------+ + + + + | 06/26/ | Office | Endocrinology, | Tapan Horowitz MD | | | 2017 | Visit | Diabetes & | [address] | | | | | Metabolism | [address] [place], | | | | | | [place] [address] | | | | | | [phone] | | | | | | | | +--------+ + + + + as of this encounter Visit Diagnoses + + | Diagnosis | + + | Asthma, unspecified asthma severity, unspecified whether complicated, unspecified | | whether persistent - Primary | + +
--- OUTSIDE RECORDS SUMMARY | ~2017-07-29 | XMS | Encounter Summary ---
Demographics + + + | Address | [address] | | | [place] [address] | + + + | Home Phone [...] + + + + + ECON | [address] | | [place], | [place] [address] | +------+ + + + + + Care Team Providers + +------+-------+ | Care Car Retarder Operator Name | Role | Phone | [...] + + + + | 06/26/ | Anesthesia | [facility] | Delmi Zarate, | | | 2016 | | [facility] 4th | [place] [address] | | | | | [facility] [address] [facility] | [facility] | | | | | [facility] | [place], [place] | | | | | Mailcode: [id number] | [address] | | | | | [address] | [phone] | | | | | [address] [place], [place] | | | | | | [address] | | | | | | [phone] | | | +--------+ + + + + Anesthesia Record + + + + + | Procedure Name | Responsible | Anesthesia Start | Anesthesia Stop Time | | | Anesthesiologist | Time | | + + + + + | JON | Ki Veliz | 06/26/17 1014 | 06/26/17 1047 | | | MD Claritza | | | + + + + + +----+---+ + + | Da | T | Event | Comment | | te | i | | | | | m | | | | | e | | | +----+---+ + + | 12 | 0 | Pt. Check | Prior to anesthesia start, pt. Identified, examined, chart | | /1 | 9 | | reviewed, PARQ held, anesthetic plan made or approved by | | 2/ | 0 | | attending anesthesiologist. NPO status confirmed as appropriate | | 20 | 4 | | for procedure Preoperative evaluation: unchanged | | 17 | | | | +----+---+ + + | | 1 | Eq Check | Anesthesia machine checked Equipment verified | | | 0 | | | | | 1 | | | | | 4 | | | +----+---+ + + | | 1 | An Start | | | | 0 | | | | | 1 | | | | | 4 | | | +----+---+ + + | | 1 | An Start | | | | 0 | Data | | | | 2 | | | | | 0 | | | +----+---+ + + | | 1 | Vitals | Monitors applied Vital signs checked Patient ready for anesthesia | | | 0 | Checked | | | | 2 | | | | | 0 | | | +----+---+ + + | | 1 | O2 by NC | | | | 0 | | | | | 2 | | | | | 0 | | | +----+---+ + + | | 1 | Abx held | Contraindicated, or not indicated for this procedure, or already | | | 0 | Medical or | receiving antibiotics | | | 2 | Surgical | | | | 1 | Reason | | +----+---+ + + | | 1 | Ready | | | | 0 | | | | | 2 | | | | | 1 | | | +----+---+ + + | | 1 | Incision | | | | 0 | | | | | 2 | | | | | 2 | | | +----+---+ + + | | 1 | Surgery end | | | | 0 | | | | | 4 | | | | | 0 | | | +----+---+ + + | | 1 | an stop | | | | 0 | data | | | | 4 | | | | | 0 | | | +----+---+ + + | | 1 | PACU Rpt | | | | 0 | Given | | | | 4 | | | | | 7 | | | +----+---+ + + | | 1 | Anesthesia | | | | 0 | End | | | | 4 | | | | | 7 | | | +----+---+ + + +------+ | Meds | +------+ + + + | Name | Total | + + + | propofol INF | 172,660 mcg | + + + | propofol | 40 mg | + + + | labetalol | 10 mg | + + + | LR | 200 mL | + + + + + | No agents on file. | + + + + | No blood administrations on file. | + + +--------+ + + + | Type | Details | Placement | Removal | +--------+ + + + | Periph | 06/26/17; 919; Jj VARGAS VAT; | 06/26/17919 by | 06/26/17 112 by | | eral | Left; Anterior; Antecubital; 20 | Xander Kendall, | Rebecca Macedo, | | IV | g; Lidocaine; Yes; Positive; | SAM | RN | | | 06/26/17; 1125; Discharge | | | +--------+ + + + in this encounter Social History + +-------+ [...] [address] | | | | | | [place], [place] | | | | | | [address] | | | | | | [phone] | | | | | | | | +--------+ + + + + | 10/24/ | Appointment | Pulmonary Disease | Cheng Christina Adult | | | 2018 | | | [address] | | | | | | [address] [place], | | | | | | [place] [address] | | +--------+ + + + + | 10/24/ | Results/Int | Pulmonary Disease | | | | 2017 | erpretation | | | | +--------+ + + + + | 10/24/ | Office | Pulmonary Disease | Juana Kilgore MD | | | 2017 | Visit | | [address] | | | | | | [place], | | | | | | [place] [address] | | | | | | [phone] | | | | | | | | +--------+ + + + + | 10/29/ | Appointment | Radiology | [facility], | | | 2017 | | | [address] | | | | | | [place], [place] | | | | | | [address] | | | | | | [phone] | | | | | | | | +--------+ + + + + | 10/29/ | Office | Surgical Oncology | [facility], | | | 2017 | Visit | | [address] | | | | | | [place], [place] | | | | | | [address] | | | | | | [phone] | | | | | | | | +--------+ + + + + | 06/26/ | Office | Endocrinology, | Tapan Horowitz MD | | | 2017 | Visit | Diabetes & | [address] | | | | | Metabolism | [place], | | | | | | [place] [address] | | | | | | [phone] | | | | | | | | +--------+ + + + + as of this encounter Visit Diagnoses Not on filein this encounter Administered Medications + +--------+ +-------+------+------+ | Medication Order | MAR | Action | Dose | Rate | Site | | | Action | Date | | | | + +--------+ +-------+------+------+ | labetalol (TRANDATE) IV | Given | 06/26/20 | 10 mg | | | | injection intravenous, | | 17 10:28 | | | | | INTRAPROCEDURE PRN, Starting Tue | | PST | | | | | 06/26/17 at 1028, Until Tue | | | | | | | 06/26/17 at 1040 | | | | | | + +--------+ +-------+------+------+ +---+---+ | | | +---+---+ + +---------+ +---+---+---+ | lactated Ringers IV | New Bag | 06/26/20 | | | | | INTRAPROCEDURE CONTINUOUS PRN, | | 17 10:14 | | | | | Starting 06/26/17 at 1014, | | PST | | | | | Until 06/26/17 at 1040 | | | | | | + +---------+ +---+---+---+ + + +---+---+---+ | given by anesthesiology | 06/26/20 | | | | | | 17 10:31 | | | | | | PST | | | | + + +---+---+---+ +---+---+ | | | +---+---+ + +---------+ + +--------+---+ | propofol (DIPRIVAN) injection | New Bag | 06/26/20 | 175 | 74.76 | | | INTRAPROCEDURE CONTINUOUS PRN, | | 17 10:21 | mcg/kg/m | mL/hr | | | Starting 06/26/17 at 1021, | | PST | in | | | | Until Discontinued | | | | | | + +---------+ + +--------+---+ + + + +--------+---+ | Rate/Dose Change | 06/26/20 | 100 | 42.72 | | | | 17 10:28 | mcg/kg/m | mL/hr | | | | PST | in | | | + + + +--------+---+ +---+---+ | | | +---+---+ + +-------+ +-------+---+---+ | propofol INTRAPROCEDURE PRN, | Given | 06/26/20 | 40 mg | | | | Starting 06/26/17 at 1021, | | 17 10:21 | | | | | Until Discontinued | | PST | | | | + +-------+ +-------+---+---+ +---+---+ | | | +---+---+ in this encounter"
--- OUTSIDE RECORDS SUMMARY | ~2017-07-29 | XMS | Encounter Summary ---
Demographics + + + | Address | [address] | | | [place] [address] | + + + | Home Phone [...] + + + + + ECON | [address] | | [place], | [place] [address] | +------+ + + + + + Care Team Providers + +------+-------+ | Care Bleacher Sulfite Pulp Name | Role | Phone | + +------+-------+ | Antony Ribera MD | PCP | tel | + +------+-------+ Encounter Details +--------+ + + + + | Date | Type | Department | Care Team | Description | +--------+ + + + + | 07/24/ | Documentati | Cardiology | Elijah Whalen, | | | 2018 | on | Arrhythmia at [facility] | [address] | | | | | [address] | [facility] [address] | | | | | Mailcode: CH9A | [place], [place] | | | | | [facility] | [address] | | | | | and | [phone] | | | | | Floor [place], [place] | | | | | | [address] | | | | | | [phone] | | | +--------+ + + + [...] Rd | | | | | | [place], [place] | | | | | | [address] | | | | | | [phone] | | | | | | | | +--------+ + + + + | 10/24/ | Appointment | Pulmonary Disease | Tech Pfl Adult | | | 2018 | | | [address] | | | | | | [place] [facility], | | | | | | [place] [address] | | +--------+ + + + + | 10/24/ | Results/Int | Pulmonary Disease | | | | 2018 | erpretation | | | | +--------+ + + + + | 10/24/ | Office | Pulmonary Disease | Juana Kilgore MD | | | 2017 | Visit | | [address] | | | | | | [place] [facility], | | | | | | [place] [address] | | | | | | [phone] | | | | | | | | +--------+ + + + + | 10/29/ | Appointment | Radiology | Henri [facility], | | | 2017 | | | [address] | | | | | | [place], [place] | | | | | | [address] | | | | | | [phone] | | | | | | | | +--------+ + + + + | 10/29/ | Office | Surgical Oncology | Henri [facility], | | | 2017 | Visit | | [address] | | | | | | [place] | | | | | | [address] | | | | | | [phone] | | | | | | | | +--------+ + + + + | 06/26/ | Office | Endocrinology, | Tapan Horowitz MD | | | 2017 | Visit | Diabetes & | [address] | | | | | Metabolism | [place], | | | | | | [place] [address] | | | | | | [phone] | | | | | | | | +--------+ + + + + as of this encounter Visit Diagnoses Not on filein this encounter"
--- OUTSIDE RECORDS SUMMARY | ~2017-07-29 | XMS | Encounter Summary ---
Demographics + + + | Address | [address] | | | [place] [address] | + + + | Home Phone [...] + + | Author | [facility] | + + + | Organization | [facility] | + + + | Address | Unknown | + + + | Phone | Unavailable | + + + Support +------+ + + + + + | Name | Relationship | Address | Phone | +------+ + + + + + ECON | [address] | | [place], | [place] [address] | +------+ + + + + + Care Team Providers + +------+-------+ | Care Band Saw Filer Name | Role | Phone | + [...] | | 2017 | | Arrhythmia at [facility] | [address] | Clearance for | | | | [address] | [address] | colonscopy) | | | | Mailcode: CH9A | [place], [place] | | | | | [facility] | [address] | | | | | and | [phone] | | | | | Floor [place], [place] | | | | | | [address] | | | | | | [phone] | | | +--------+ + + + [...] [address] | | | | | | [place], [place] | | | | | | [address] | | | | | | [phone] | | | | | | | | +--------+ + + + + | 10/24/ | Appointment | Pulmonary Disease | TechCheng Adult | | | 2017 | | | [address] | | | | | | [facility] | | | | | | [place] [address] | | +--------+ + + + + | 10/24/ | Results/Int | Pulmonary Disease | | | | 2017 | erpretation | | | | +--------+ + + + + | 10/24/ | Office | Pulmonary Disease | Juana Kilgore MD | | | 2017 | Visit | | [address] | | | | | | [place], | | | | | | [place] [address] | | | | | | [phone] | | | | | | | | +--------+ + + + + | 10/29/ | Appointment | Radiology | Henri [facility], | | | 2017 | | | [address] | | | | | | [place], [place] | | | | | | [address] | | | | | | [phone] | | | | | | | | +--------+ + + + + | 10/29/ | Office | Surgical Oncology | [facility], | | | 2017 | Visit | | [address] | | | | | | [place], [place] | | | | | | [address] | | | | | | [phone] | | | | | | | | +--------+ + + + + | 06/26/ | Office | Endocrinology, | Tapan Horowitz MD | | | 2018 | Visit | Diabetes & | [address] | | | | | Metabolism | [place], | | | | | | [place] [address] | | | | | | [phone] | | | | | | | | +--------+ + + + + as of this encounter Visit Diagnoses Not on filein this encounter"
--- OUTSIDE RECORDS SUMMARY | ~2017-07-29 | XMS | Encounter Summary ---
Demographics + + + | Address | [address] | | | [place] [address] | + + + | Home Phone [...] + + + + + ECON | [address] | | [place], | [place] [address] | +------+ + + + + + Care Team Providers + +------+-------+ | Care Gang Miner Name | Role | Phone | + +------+-------+ | Antony Ribera MD | PCP | tel | + +------+-------+ Encounter Details +--------+ + + + + | Date | Type | Department | Care Team | Description | +--------+ + + + + | 07/24/ | Documentati | Cardiology | Elijah Whalen, | | | 2018 | on | Arrhythmia at [facility] | [address] | | | | | [address] | [facility] [address] | | | | | Mailcode: CH9A | [place], [place] | | | | | [facility] | [address] | | | | | and | [phone] | | | | | Floor [place], [place] | | | | | | [address] | | | | | | [phone] | | | +--------+ + + + [...] Rd | | | | | | [place], [place] | | | | | | [address] | | | | | | [phone] | | | | | | | | +--------+ + + + + | 10/24/ | Appointment | Pulmonary Disease | Tech Pfl Adult | | | 2018 | | | [address] | | | | | | [place] [facility], | | | | | | [place] [address] | | +--------+ + + + + | 10/24/ | Results/Int | Pulmonary Disease | | | | 2018 | erpretation | | | | +--------+ + + + + | 10/24/ | Office | Pulmonary Disease | Juana Kilgore MD | | | 2017 | Visit | | [address] | | | | | | [place] [facility], | | | | | | [place] [address] | | | | | | [phone] | | | | | | | | +--------+ + + + + | 10/29/ | Appointment | Radiology | Henri [facility], | | | 2017 | | | [address] | | | | | | [place], [place] | | | | | | [address] | | | | | | [phone] | | | | | | | | +--------+ + + + + | 10/29/ | Office | Surgical Oncology | Henri Herat, | | | 2017 | Visit | | [address] | | | | | | [place] | | | | | | [address] | | | | | | [phone] | | | | | | | | +--------+ + + + + | 06/26/ | Office | Endocrinology, | Tapan Horowitz MD | | | 2017 | Visit | Diabetes & | [address] | | | | | Metabolism | [place], | | | | | | [place] [address] | | | | | | [phone] | | | | | | | | +--------+ + + + + as of this encounter Visit Diagnoses Not on filein this encounter"
--- OUTSIDE RECORDS SUMMARY | ~2017-07-29 | XMS | Encounter Summary ---
Demographics + + + | Address | [address] | | | [place] [address] | + + + | Home Phone [...] + + + + + ECON | [address] | | [place], | [place] [address] | +------+ + + + + + Care Team Providers + +------+-------+ | Care Salvage Diver Name | Role | Phone | + [...] Z[place], | | | 2016 | | [facility] | [place] [address] | | | | | [facility] [address] [facility] | [facility] | | | | | [facility] | [place], [place] | | | | | Mailcode: UHN83 | [address] | | | | | [place] | [phone] | | | | | [address] [place], [place] | | | | | | [address] | | | | | | [phone] | | | +--------+ + + + [...] Rd | | | | | | [place], [place] | | | | | | [address] | | | | | | [phone] | | | | | | | | +--------+ + + + + | 10/24/ | Appointment | Pulmonary Disease | Cheng Christina Adult | | | 2018 | | | [address] | | | | | | [place], | | | | | | [place] [address] | | +--------+ + + + + [...] | | | | | | [place] [address] | | | | | | [phone] | | | | | | | | +--------+ + + + + | 10/29/ | Appointment | Radiology | Henri [facility], | | | 2017 | | | [address] | | | | | | [place], [place] | | | | | | [address] | | | | | | [phone] | | | | | | | | +--------+ + + + + | 10/29/ | Office | Surgical Oncology | Henri Heart, | | | 2017 | Visit | | [address] | | | | | | [place], [place] | | | | | | [address] | | | | | | [phone] | | | | | | | | +--------+ + + + + | 06/26/ | Office | Endocrinology, | Tapan Horowitz MD | | | 2017 | Visit | Diabetes & | [address] | | | | | Metabolism | [place], | | | | | | [place] [address] | | | | | | [phone] | | | | | | | [...]
--- OUTSIDE RECORDS SUMMARY | ~2017-07-29 | XMS | Encounter Summary ---
Demographics + + + | Address | [address] | | | [place] [address] | + + + | Home Phone [...] + + + + + ECON | [address] | | [place], | [place] [address] | +------+ + + + + + Care Team Providers + +------+-------+ | Care Manager Sas Name | Role | Phone | + +------+-------+ | Doug Ribera MD | PCP | tel | + +------+-------+ Encounter Details +--------+ + + + + | Date | Type | Department | Care Team | Description | +--------+ + + + + | 05/30/ | Outside | Digestive Health | Doug Ribera | | | 2017 | Referral | Center at [facility] | MD Saman | | | | Order | Floor [address] | [place] [facility] | | | | | [facility] [address] | MEDICINE [address] | | | | | Mailcode: UHN83 | [address] | | | | | [address] | [place] [address] | | | | | [address] [place], [place] | [phone] | | | | | [address] | | | | | | [phone] | | | +--------+ + + + [...] Rd | | | | | | [place], [place] | | | | | | [address] | | | | | | [phone] | | | | | | | | +--------+ + + + + | 10/24/ | Appointment | Pulmonary Disease | Cheng Christina Adult | | | 2018 | | | [address] | | | | | | [place], | | | | | | [place] [address] | | +--------+ + + + + | 10/24/ | Results/Int | Pulmonary Disease | | | | 2017 | erpretation | | | | +--------+ + + + + | 10/24/ | Office | Pulmonary Disease | Juana Kilgore MD | | | 2017 | Visit | | [address] | | | | | | [place], | | | | | | [place] [address] | | | | | | [phone] | | | | | | | | +--------+ + + + + | 10/29/ | Appointment | Radiology | Henri [facility], | | | 2017 | | | MD [address] | | | | | | [place], [place] | | | | | | [address] | | | | | | [phone] | | | | | | | | +--------+ + + + + | 10/29/ | Office | Surgical Oncology | Henri [facility], | | | 2017 | Visit | | [address] | | | | | | [place], [place] | | | | | | [address] | | | | | | [phone] | | | | | | | | +--------+ + + + + | 06/26/ | Office | Endocrinology, | Tapan Horowitz MD | | | 2017 | Visit | Diabetes & | [address] | | | | | Metabolism | [place], | | | | | | [place] [address] | | | | | | [phone] | | | | | | | | +--------+ + + + + as of this encounter Results EGD (06/26/2017 10:22 AM) + + + | Specimen | Performing Laboratory | + + + | | [facility] | + + + + + | Narrative | + + | Procedure Date: 06/26/2017 Patient Name: Adriana Flynn Order #: | | [id number] Date of : 1945 CSN: [id number] Admit Type: Ambulatory Room: GI 3 | | Procedure: Upper GI endoscopy Indications: | | Dysphagia Providers: ASHLEY SUNSHINE MD (Doctor), UDAY | | SAM VIZCARRA (Nurse), GAUTAM BRADY, | | Glove Factory Sewer (Glove Factory Sewer) Referring MD: DOUG RIBERA MD | | [...] procedure. The Olympus [id number]-[id number] Endoscope | | #[id number] was introduced through the mouth, | | [...] manometry if symptoms | | persist. ASHLEY SUNSHINE MD | | 06/26/2017 10:47:05 AM This report has been signed electronically. Number of Addenda: | | 0 Note Initiated On: 06/26/2017 10:22 AM CC Letter to: DOUG RIBERA | | | + + COLONOSCOPY (06/26/2017 10:21 AM) + + + | Specimen | Performing Laboratory | + + + | | [facility] | + + + + + | Narrative | + + | Procedure Date: 06/26/2017 Patient Name: Adriana Flynn Order #: | | [id number] Date of : 1945 CSN: [id number] Admit Type: Ambulatory Room: GI 3 | | Procedure: Colonoscopy Indications: Screening for | | colorectal malignant neoplasm Providers: ASHLEY SUNSHINE, | | (Doctor), UDAY VIZCARRA, RN (Nurse), | | GAUTAM BRADY, Glove Factory Sewer (Glove Factory Sewer) Referring MD: DOUG AUSTIN | | MD [...] The Olympus | | [id number]-[id number] Peds Colonoscope #[id number] was | | introduced through the anus and advanced to the cecum, | | identified by appendiceal orifice and ileocecal | | valve. The quality of the bowel preparation | | was evaluated using the BBPS (Washington Bowel | | Preparation Scale) with scores [...] years for screening purposes. | | ASHLEY SUNSHINE MD 06/26/2017 10:50:45 AM This report has been signed | | electronically. Number of Addenda: 0 Note Initiated On: 06/26/2017 10:21 AM CC Letter | | to: DOUG RIBERA MD | + + in this encounter Visit Diagnoses + + | Diagnosis | + + | Diverticulosis of small intestine without perforation or abscess without bleeding - | | Primary | + +"
--- OUTSIDE RECORDS SUMMARY | ~2017-07-29 | XMS | Encounter Summary ---
Demographics + + + | Address | [address] | | | [place] [address] | + + + | Home Phone [...] + + + + + ECON | [address] | | [place], | [place] [address] | +------+ + + + + + Care Team Providers + +------+-------+ | Care Glove Cleaner Name | Role | Phone | [...] | | | | | Procedures | [place], [place] | [facility] | | | | | BONE | [address] | for Health | | | | | DENSITY | Phone: | and Healing | | | | | PROCEDURE | [phone] | [place], [place] | | | | | | Fax: | [address] | | | | | | [phone] | Phone: | | | | | | | [phone] | | | | | | | Fax: | | | | | | | [phone] | +--------+--------+ + + + + Encounter Details +--------+---------+ + + + | Date | Type | Department | Care Team | Description | +--------+---------+ + + + | 11/29/ | Office | Bone Density at | | jail current | | 2017 | Visit | [facility] 1st Floor [address] | | use of inhaled | | | | [address] | | steroid (Primary | | | | Mailcode: CH8A | | Dx); Disorder of | | | | [place] [facility] | | bone and cartilage | | | | and Healing | | | | | | [place], [place] | | | | | | [address] | | | | | | [phone] | | | +--------+---------+ + + + [...] Interp retation report will be scanned into [employer] and attached to the Images. Thank you. [...] Rd | | | | | | [place], [place] | | | | | | [address] | | | | | | [phone] | | | | | | | [...] | | | | | [place], | | | | | | [place] [address] | | | | | | [phone] | | | | | | | | +--------+ + + + + | 10/29/ | Appointment | Radiology | [facility], | | | 2017 | | | [address] | | | | | | [place], [place] | | | | | | [address] | | | | | | [phone] | | | | | | | | +--------+ + + + + | 10/29/ | Office | Surgical Oncology | Henri [facility], | | | 2017 | Visit | | [address] | | | | | | [place], [place] | | | | | | [address] | | | | | | [phone] | | | | | | | | +--------+ + + + + | 06/26/ | Office | Endocrinology, | Tapan Horowitz MD | | | 2017 | Visit | Diabetes & | [address] | | | | | Metabolism | [place], | | | | | | [place] [address] | | | | | | [phone] | | | | | | | | +--------+ + + + + as of this encounter Results BONE DENSITOMETRY (06/13/2017 10:36 AM)in this encounter Visit Diagnoses + + | Diagnosis | + + | 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
--- OUTSIDE RECORDS SUMMARY | ~2017-07-29 | XMS | Encounter Summary ---
Demographics + + + | Address | [address] | | | [place] [address] | + + + | Home Phone [...] + + + + + ECON | [address] | | [place] | [place] [address] | +------+ + + + + + Care Team Providers + +------+-------+ | Care Family Engagement Specialist Name | Role | Phone | [...] | unspecified site | | | | [place], [place] | | (CODE) ; Disorder of | | | | [address] | | bone and cartilage; | | | | [phone] | | Thyroid nodule | +--------+------+ + [...] Rd | | | | | | [place], [place] | | | | | | [address] | | | | | | [phone] | | | | | | | | +--------+ + + + + | 10/24/ | Appointment | Pulmonary Disease | Tech, Pfl Adult | | | 2018 | | | [address] | | | | | | [facility] [place], | | | | | | [place] [address] | | +--------+ + + + + | 10/24/ | Results/Int | Pulmonary Disease | | | | 2017 | erpretation | | | | +--------+ + + + + | 10/24/ | Office | Pulmonary Disease | Juana Kilgore MD | | | 2017 | Visit | | [address] | | | | | | [facility], | | | | | | [place] [address] | | | | | | [phone] | | | | | | | | +--------+ + + + + | 10/29/ | Appointment | Radiology | [facility], | | | 2018 | | | [address] | | | | | | [place], [place] | | | | | | [address] | | | | | | [phone] | | | | | | | | +--------+ + + + + | 10/29/ | Office | Surgical Oncology | [facility], | | | 2017 | Visit | | [address] | | | | | | [place] | | | | | | [address] | | | | | | [phone] | | | | | | | | +--------+ + + + + | 06/26/ | Office | Endocrinology, | Tapan Horowitz MD | | | 2017 | Visit | Diabetes & | [address] | | | | | Metabolism | [place], | | | | | | [place] [address] | | | | | | [phone] | | | | | | | [...] | + + + | Blood | [facility] [address] [facility] [address] | | | [place] [address] | + + + + + | [...] | + + + | Blood | [facility], [facility] [address] | | | [place] [address] | + + + + + | [...]
--- OUTSIDE RECORDS SUMMARY | ~2017-07-29 | XMS | Encounter Summary ---
Demographics + + + | Address | [address] | | | [place] [address] | + + + | Home Phone [...] + + + + + ECON | [address] | | [place], | [place] [address] | +------+ + + + + + Care Team Providers + +------+-------+ | Care Sewing Department Supervisor Name | Role | Phone | + +------+-------+ | Antony Ribera MD | PCP | tel | + +------+-------+ Encounter Details +--------+ + + + + | Date | Type | Department | Care Team | Description | +--------+ + + + + | 07/19/ | Abstract | Cardiology | Elijah Whalen, | | | 2018 | | Arrhythmia at [facility] | [address] | | | | | [address] | [address] | | | | | Mailcode: CH9A | [place], [place] | | | | | [facility] | [address] | | | | | and Healing | [phone] | | | | | Floor [place], [place] | | | | | | [address] | | | | | | [phone] | | | +--------+ + + + [...] | | 2017 | Visit | | [address] | | | | | | [address] | | | | | | [place], [place] | | | | | | [address] | | | | | | [phone] | | | | | | | | +--------+ + + + + | 10/24/ | Appointment | Pulmonary Disease | Tech Pfl Adult | | | 2018 | | | [address] | | | | | | [facility], | | | | | | [place] [address] | | +--------+ + + + + | 10/24/ | Results/Int | Pulmonary Disease | | | | 2018 | erpretation | | | | +--------+ + + + + | 10/24/ | Office | Pulmonary Disease | Juana Kilgore MD | | | 2018 | Visit | | [address] | | | | | | [facility], | | | | | | [place] [address] | | | | | | [phone] | | | | | | | | +--------+ + + + + | 10/29/ | Appointment | Radiology | [facility], | | | 2018 | | | [address] | | | | | | [place], [place] | | | | | | [address] | | | | | | [phone] | | | | | | | | +--------+ + + + + | 10/29/ | Office | Surgical Oncology | [facility], | | | 2017 | Visit | | [address] | | | | | | [place], [place] | | | | | | [address] | | | | | | [phone] | | | | | | | | +--------+ + + + + | 06/26/ | Office | Endocrinology, | Tapan Horowitz MD | | | 2017 | Visit | Diabetes & | [address] | | | | | Metabolism | [place], | | | | | | [place] [address] | | | | | | [phone] | | | | | | | | +--------+ + + + + as of this encounter Visit Diagnoses Not on filein this encounter"
--- OUTSIDE RECORDS SUMMARY | ~2017-07-29 | XMS | Encounter Summary ---
Demographics + + + | Address | [address] | | | [place] [address] | + + + | Home Phone [...] + + + + + ECON | [address] | | [place], | [place] [address] | +------+ + + + + + Care Team Providers + +------+-------+ | Care Hydroelectric Operator Name | Role | Phone | + +------+-------+ | Antony Ribera MD | PCP | tel | + +------+-------+ Encounter Details +--------+ + + + + | Date | Type | Department | Care Team | Description | +--------+ + + + + | 07/19/ | Abstract | Cardiology | Elijah Whalen, | | | 2018 | | Arrhythmia at [facility] | [address] | | | | | [address] | [address] | | | | | Mailcode: CH9A | [place], [place] | | | | | [facility] | [address] | | | | | and Healing | [phone] | | | | | Floor [place], [place] | | | | | | [address] | | | | | | [phone] | | | +--------+ + + + [...] | 08/14/ | Office | Cardiology | Elijha Whalen, | | | 2017 | Visit | | [address] | | | | | | [address] | | | | | | [place], [place] | | | | | | [address] | | | | | | [phone] | | | | | | | | +--------+ + + + + | 10/24/ | Appointment | Pulmonary Disease | Tech Pfl Adult | | | 2018 | | | [address] | | | | | | [facility], | | | | | | [place] [address] | | +--------+ + + + + | 10/24/ | Results/Int | Pulmonary Disease | | | | 2018 | erpretation | | | | +--------+ + + + + | 10/24/ | Office | Pulmonary Disease | Juana Kilgore MD | | | 2018 | Visit | | [address] | | | | | | [facility], | | | | | | [place] [address] | | | | | | [phone] | | | | | | | | +--------+ + + + + | 10/29/ | Appointment | Radiology | [facility], | | | 2018 | | | [address] | | | | | | [place], [place] | | | | | | [address] | | | | | | [phone] | | | | | | | | +--------+ + + + + | 10/29/ | Office | Surgical Oncology | [facility], | | | 2017 | Visit | | [address] | | | | | | [place], [place] | | | | | | [address] | | | | | | [phone] | | | | | | | | +--------+ + + + + | 06/26/ | Office | Endocrinology, | Tapan Horowitz MD | | | 2017 | Visit | Diabetes & | [address] | | | | | Metabolism | [place], | | | | | | [place] [address] | | | | | | [phone] | | | | | | | | +--------+ + + + + as of this encounter Visit Diagnoses Not on filein this encounter"
--- OUTSIDE RECORDS SUMMARY | ~2017-07-29 | XMS | Encounter Summary ---
Demographics + + + | Address | [address] | | | [place] [address] | + + + | Home Phone [...] + + + + + ECON | [address] | | [place], | [place] [address] | +------+ + + + + + Care Team Providers + +------+-------+ | Care Cone Runner Name | Role | Phone | + +------+-------+ | Antony Ribera MD | PCP | tel | + +------+-------+ Encounter Details +--------+ + + + + | Date | Type | Department | Care Team | Description | +--------+ + + + + | 07/23/ | Abstract | Cardiology | Elijah Whalen, | | | 2018 | | Arrhythmia at [facility] | [address] | | | | | [address] | [address] | | | | | Mailcode: CH9A | [place], [place] | | | | | [facility] | [address] | | | | | and Healing | [phone] | | | | | Floor [place], [place] | | | | | | [address] | | | | | | [phone] | | | +--------+ + + + [...] | | 2017 | Visit | | [address] | | | | | | [address] | | | | | | [place], [place] | | | | | | [address] | | | | | | [phone] | | | | | | | | +--------+ + + + + | 10/24/ | Appointment | Pulmonary Disease | Tech Pfl Adult | | | 2018 | | | [address] | | | | | | [facility], | | | | | | [place] [address] | | +--------+ + + + + | 10/24/ | Results/Int | Pulmonary Disease | | | | 2018 | erpretation | | | | +--------+ + + + + | 10/24/ | Office | Pulmonary Disease | Juana Kilgore MD | | | 2018 | Visit | | [address] | | | | | | [facility], | | | | | | [place] [address] | | | | | | [phone] | | | | | | | | +--------+ + + + + | 10/29/ | Appointment | Radiology | [facility], | | | 2018 | | | [address] | | | | | | [place], [place] | | | | | | [address] | | | | | | [phone] | | | | | | | | +--------+ + + + + | 10/29/ | Office | Surgical Oncology | [facility], | | | 2017 | Visit | | [address] | | | | | | [place], [place] | | | | | | [address] | | | | | | [phone] | | | | | | | | +--------+ + + + + | 06/26/ | Office | Endocrinology, | Tapan Horowitz MD | | | 2017 | Visit | Diabetes & | [address] | | | | | Metabolism | [place], | | | | | | [place] [address] | | | | | | [phone] | | | | | | | | +--------+ + + + + as of this encounter Visit Diagnoses Not on filein this encounter"
--- OUTSIDE RECORDS SUMMARY | ~2017-07-29 | XMS | Encounter Summary ---
Demographics + + + | Address | [address] | | | [place] [address] | + + + | Home Phone [...] + + + + + ECON | [address] | | [place], | [place] [address] | +------+ + + + + + Care Team Providers + +------+-------+ | Care Iron Miner Name | Role | Phone | [...] Scheduling | 2017 | | Arrhythmia at [facility] | MD [address] | | | | | [address] | [address] | | | | | Mailcode: CH9A | [place], [place] | | | | | [facility] | [address] | | | | | and | [phone] | | | | | Floor [place], [place] | | | | | | [address] | | | | | | [phone] | | | +--------+ + + + [...] Rd | | | | | | [place], [place] | | | | | | [address] | | | | | | [phone] | | | | | | | | +--------+ + + + + | 10/24/ | Appointment | Pulmonary Disease | Cheng Christina Adult | | | 2017 | | | [address] | | | | | | [place], | | | | | | [place] [address] | | +--------+ + + + + | 10/24/ | Results/Int | Pulmonary Disease | | | | 2017 | erpretation | | | | +--------+ + + + + | 10/24/ | Office | Pulmonary Disease | Juana Kilgore MD | | | 2017 | Visit | | [address] | | | | | | [place], | | | | | | [place] [address] | | | | | | [phone] | | | | | | | | +--------+ + + + + | 10/29/ | Appointment | Radiology | [facility], | | | 2017 | | | MD [address] | | | | | | [place], [place] | | | | | | [address] | | | | | | [phone] | | | | | | | | +--------+ + + + + | 10/29/ | Office | Surgical Oncology | [facility], | | | 2017 | Visit | | [address] | | | | | | [place], [place] | | | | | | [address] | | | | | | [phone] | | | | | | | | +--------+ + + + + | 06/26/ | Office | Endocrinology, | Tapan Horowitz MD | | | 2017 | Visit | Diabetes & | [address] | | | | | Metabolism | [place], | | | | | | [place] [address] | | | | | | [phone] | | | | | | | | +--------+ + + + + as of this encounter Visit Diagnoses Not on filein this encounter"
--- OUTSIDE RECORDS SUMMARY | ~2017-07-29 | XMS | Encounter Summary ---
Demographics + + + | Address | [address] | | | [place] [address] | + + + | Home Phone [...] + + + + + ECON | [address] | | [place], | [place] [address] | +------+ + + + + + Care Team Providers + +------+-------+ | Care Binder Cutter Hand Name | Role | Phone | + +------+-------+ | Doug Ribera MD | PCP | tel | + +------+-------+ Encounter Details +--------+ + + + + | Date | Type | Department | Care Team | Description | +--------+ + + + + | 05/30/ | Outside | Digestive Health | Doug Ribera | | | 2017 | Referral | Center at [facility] 4th | MD Saman | | | | Order | Floor [address] | [place] [facility] | | | | | [facility] [address] | MEDICINE [address] | | | | | Mailcode: UHN83 | [address] | | | | | [address] | [place] [address] | | | | | [address] [place], [place] | [phone] | | | | | [address] | | | | | | [phone] | | | +--------+ + + + [...] Rd | | | | | | [place], [place] | | | | | | [address] | | | | | | [phone] | | | | | | | | +--------+ + + + + | 10/24/ | Appointment | Pulmonary Disease | Cheng Christina Adult | | | 2018 | | | [address] | | | | | | [place], | | | | | | [place] [address] | | +--------+ + + + + | 10/24/ | Results/Int | Pulmonary Disease | | | | 2017 | erpretation | | | | +--------+ + + + + | 10/24/ | Office | Pulmonary Disease | Juana Kilgore MD | | | 2017 | Visit | | [address] | | | | | | [place], | | | | | | [place] [address] | | | | | | [phone] | | | | | | | | +--------+ + + + + | 10/29/ | Appointment | Radiology | [facility], | | | 2017 | | | MD [address] | | | | | | [place], [place] | | | | | | [address] | | | | | | [phone] | | | | | | | | +--------+ + + + + | 10/29/ | Office | Surgical Oncology | [facility], | | | 2017 | Visit | | [address] | | | | | | [place], [place] | | | | | | [address] | | | | | | [phone] | | | | | | | | +--------+ + + + + | 06/26/ | Office | Endocrinology, | Tapan Horowitz MD | | | 2017 | Visit | Diabetes & | [address] | | | | | Metabolism | [place], | | | | | | [place] [address] | | | | | | [phone] | | | | | | | | +--------+ + + + + as of this encounter Results EGD (06/26/2017 10:22 AM) + + + | Specimen | Performing Laboratory | + + + | | [facility] | + + + + + | Narrative | + + | Procedure Date: 06/26/2017 Patient Name: Adriana Flynn Order #: | | [id number] Date of : 1945 CSN: [id number] Admit Type: Ambulatory Room: GI 3 | | Procedure: Upper GI endoscopy Indications: | | Dysphagia Providers: ASHLEY SUNSHINE MD (Doctor), UDAY | | SAM VIZCARRA (Nurse), GAUTAM BRADY, | | Carton Forming Machine Tender (Carton Forming Machine Tender) Referring MD: DOUG RIBERA MD | | [...] procedure. The Olympus [id number]-[id number] Endoscope | | #[id number] was introduced through the mouth, | | [...] Name: Adriana Flynn Order #: | | [id number] Date of : 1945 CSN: [id number] Admit Type: Ambulatory Room: GI 3 | | Procedure: Colonoscopy Indications: Screening for | | colorectal malignant neoplasm Providers: ASHLEY SUNSHINE, | | (Doctor), UDAY VIZCARRA, RN (Nurse), | | GAUTAM BRADY, Carton Forming Machine Tender (Carton Forming Machine Tender) Referring MD: DOUG AUSTIN | | MD [...] The Olympus | | [id number]-[id number] Peds Colonoscope #[id number] was | | introduced through the anus and advanced to the cecum, | | identified by appendiceal orifice and ileocecal | | valve. The quality of the bowel preparation | | was evaluated using the BBPS ([place] Bowel | | Preparation Scale) with scores [...]
--- OUTSIDE RECORDS SUMMARY | ~2017-07-29 | XMS | Encounter Summary ---
Demographics + + + | Address | [address] | | | [place] [address] | + + + | Home Phone [...] + + + + + ECON | [address] | | [place], | [place] [address] | +------+ + + + + + Care Team Providers + +------+-------+ | Care Case Specialist Name | Role | Phone | [...] | | Pre-operative | | 2017 | cleopatra | [facility] at | | evaluation | | | | MPV | | | | | | Stay [address] | | | | | | [facility] | | | | | | Mailcode: [id number] | | | | | | [address] | | | | | | [address] [place], [place] | | | | | | [address] | | | | | | [phone] | | | +--------+ + + + [...] | 06/26/17; 0920; Jj VARGAS VAT; | 06/26/17 0920 by | 06/26/171124 by | | miah | Left; Anterior; [...] + + + as of this encounter Instructions Patient Instructions - Sebastián October, RN - 06/19/2017 3:00 PM PSTFormatting of this note m ay be different from the original. PREOPERATIVE INSTRUCTIONS [...] as needed (Shortness of breath). LACTOBACILLUS COMB NO.4-SHO-[id number] 300 MILLION CELL-250 MG CAPSULE Take by [...] perfume, lotions or powder. Remove any nail panamanian from at least one fingernail. Do not [...] before and the morning of your procedure. HIBICLENS GUIDE TO GENERAL SKIN CLEANSING AT [...] Surgery Check in Locations Day Stay Unit [facility] [place], fourth floor Room 7668 [facility] Day Stay [facility], fourth floor Admitting [facility], ninth floor lobby I Surgery Unit [facility], sixth floor Surgery Check in Time: Someone from your surgeon's office or [facility] will provide you with information regarding [...] it is after office hours, call the [facility] hole digger operator at [phone] and ask them to page your doc [...] nostril two t imes daily. LACTOBACILLUS COMB NO.5-OLU-WOGUCWUDXF 300 MILLION CELL-250 MG CAPSULE Take by [...] perfume, lotions or powder. Remove any nail panamanian from at least one fingernail. Do not [...] Surgery Check in Locations Day Stay Unit [facility], fourth floor Room 9941 Surgery Check in Time: Someone from your surgeon's office or [facility] will provide you with information regarding [...] it is after office hours, call the [facility] hole digger operator at [phone] and ask them to page your doc tor. in this encounter Plan of Treatment +--------+ + + + + | Date | Type | Specialty | Care Team | Description | +--------+ + + + + | 08/14/ | Office | Cardiology | Elijah Whalen, | | | 2017 | Visit | | [address] | | | | | | [address] | | | | | | [place], [place] | | | | | | [address] | | | | | | [phone] | | | | | | | | +--------+ + + + + | 10/24/ | Appointment | Pulmonary Disease | Tech, Pfl Adult | | | 2018 | | | [address] | | | | | | [place] [facility], | | | | | | [place] [address] | | +--------+ + + + + | 10/24/ | Results/Int | Pulmonary Disease | | | | 2017 | erpretation | | | | +--------+ + + + + | 10/24/ | Office | Pulmonary Disease | Juana Kilgore MD | | | 2017 | Visit | | [address] | | | | | | [place] [facility], | | | | | | [place] [address] | | | | | | [phone] | | | | | | | | +--------+ + + + + | 10/29/ | Appointment | Radiology | [facility], | | | 2017 | | | [address] | | | | | | [place], [place] | | | | | | [address] | | | | | | [phone] | | | | | | | | +--------+ + + + + | 10/29/ | Office | Surgical Oncology | [facility], | | | 2017 | Visit | | [address] | | | | | | [place], [place] | | | | | | [address] | | | | | | [phone] | | | | | | | | +--------+ + + + + | 06/26/ | Office | Endocrinology, | Tapan Horowitz MD | | | 2017 | Visit | Diabetes & | [address] | | | | | Metabolism [place], | | | | | | [place] [address] | | | | | | [phone] | | | | | | | | +--------+ + + + + as of this encounter Visit Diagnoses Not on filein this encounter"
--- OUTSIDE RECORDS SUMMARY | ~2017-07-29 | XMS | Encounter Summary ---
Demographics + + + | Address | [address] | | | [place] [address] | + + + | Home Phone [...] + + + + + ECON | [address] | | [place] | [place] [address] | +------+ + + + + + Care Team Providers + +------+-------+ | Care Metallurgist Process Name | Role | Phone | + +------+-------+ | Antony Ribera MD | PCP | tel | + +------+-------+ Encounter Details +--------+ + + + + | Date | Type | Department | Care Team | Description | +--------+ + + + + | 06/29/ | MyChart | Pulmonary & | Juana Kilgore MD | RE: Pulmicort refill | | 2017 | Encounter | Critical Care | [address] | | | | | Medicine at [facility], | | | | | [place] | [place] [address] | | | | | [address] [facility] | [phone] | | | | | [facility] | | | | | | Mailcode: [id number] | | | | | | [address] [place] | | | | | | [address] [place], [place] | | | | | | [address] | | | | | | [phone] | | | +--------+ + + + [...] | | 2017 | Visit | | [address] | | | | | | [address] | | | | | | [place], [place] | | | | | | [address] | | | | | | [phone] | | | | | | | | +--------+ + + + + | 10/24/ | Appointment | Pulmonary Disease | Tech, Pfl Adult | | | 2018 | | | [address] | | | | | | [facility], | | | | | | [place] [address] | | +--------+ + + + + | 10/24/ | Results/Int | Pulmonary Disease | | | | 2017 | erpretation | | | | +--------+ + + + + | 10/24/ | Office | Pulmonary Disease | Juana Kilgore MD | | | 2017 | Visit | | [address] | | | | | | [place] [facility], | | | | | | [place] [address] | | | | | | [phone] | | | | | | | | +--------+ + + + + | 10/29/ | Appointment | Radiology | [facility], | | | 2017 | | | [address] | | | | | | [place], [place] | | | | | | [address] | | | | | | [phone] | | | | | | | | +--------+ + + + + | 10/29/ | Office | Surgical Oncology | [facility], | | | 2017 | Visit | | [address] | | | | | | [place], [place] | | | | | | [address] | | | | | | [phone] | | | | | | | | +--------+ + + + + | 06/26/ | Office | Endocrinology, | Tapan Horowitz MD | | | 2017 | Visit | Diabetes & | [address] | | | | | Metabolism | [place], | | | | | | [place] [address] | | | | | | [phone] | | | | | | | | +--------+ + + + + as of this encounter Visit Diagnoses Not on filein this encounter"
--- OUTSIDE RECORDS SUMMARY | ~2017-07-29 | XMS | Encounter Summary ---
Demographics + + + | Address | [address] | | | [place] [address] | + + + | Home Phone [...] + + + + + ECON | [address] | | [place], | [place] [address] | +------+ + + + + + Care Team Providers + +------+-------+ | Care Appliance Service Technician Name | Role | Phone | [...] Telephone follow-up | | 2017 | | [place] [facility] 4th | MD [address] | (06/26/17) | | | | Floor [address] [facility] | [facility] | | | | | [facility] | [place] [address] | | | | | Mailcode: [id number] | [phone] | | | | | [address] | | | | | | [address] [place], [place] | | | | | | [address] | | | | | | [phone] | | | +--------+ + + + [...] [address] | | | | | | [place], [place] | | | | | | [address] | | | | | | [phone] | | | | | | | | +--------+ + + + + | 10/24/ | Appointment | Pulmonary Disease | Cheng Christina Adult | | | 2018 | | | [address] | | | | | | [facility], | | | | | | [place] [address] | | +--------+ + + + + | 10/24/ | Results/Int | Pulmonary Disease | | | | 2017 | erpretation | | | | +--------+ + + + + | 10/24/ | Office | Pulmonary Disease | Juana Kilgore MD | | | 2017 | Visit | | [address] | | | | | | [place], | | | | | | [place] [address] | | | | | | [phone] | | | | | | | | +--------+ + + + + | 10/29/ | Appointment | Radiology | [facility], | | | 2017 | | | [address] | | | | | | [place], [place] | | | | | | [address] | | | | | | [phone] | | | | | | | | +--------+ + + + + | 10/29/ | Office | Surgical Oncology | [facility], | | | 2017 | Visit | | [address] | | | | | | [place], [place] | | | | | | [address] | | | | | | [phone] | | | | | | | | +--------+ + + + + | 06/26/ | Office | Endocrinology, | Tapan Horowitz MD | | | 2017 | Visit | Diabetes & | [address] | | | | | Metabolism | [place], | | | | | | [place] [address] | | | | | | [phone] | | | | | | | | +--------+ + + + + as of this encounter Visit Diagnoses Not on filein this encounter"
--- OUTSIDE RECORDS SUMMARY | ~2017-07-29 | XMS | Encounter Summary ---
Demographics + + + | Address | [address] | | | [place] [address] | + + + | Home Phone [...] + + + + + ECON | [address] | | [place], | [place] [address] | +------+ + + + + + Care Team Providers + +------+-------+ | Care Guide Escort Name | Role | Phone | + [...] | | | | | [place] | [address] | | | | | | INTERNAL | Mailcode: | | | | | | MEDICINE | [id number] | | | | | | [address] | Physicians | | | | | | [address] | [address] | | | | | | [address] | [place], [place] | | | | | | [place], | [address] | | | | | | [place] [address] | Phone: | | | | | | Phone: | [phone] | | | | | | [phone] | Fax: | | | | | | Fax: | [phone] | | | | | | [phone] | | +--------+--------+ + + + + [...] | | | | Medicine at | [facility], | unspecified whether | | | | [facility] | [place] [address] | complicated, | | | | [address] [facility] | [phone] | unspecified whether | | | | [facility] | | persistent (Primary | | | | Mailcode: [id number] | | Dx) | | | | [facility] [address] | | | | | | [address] [place], [place] | | | | | | [address] | | | | | | [phone] | | | +--------+---------+ + + + [...] in case I have a question? -Call [phone] We recommend signing up for [employer] our secure online messaging system that will [...] (HCC) 07/20 also episode in setting of Meridian virus in 05/2012 which was thougth to be AF, but likel y just AT. Bursitis 2006 Plantar fascial fibromatosis 2007 plantar fascial tear Osteopenia 12/30/2007 Breast cancer (HCC) 02/2007 s/p chemo with taxotere/cytoxan Shingles Pulmonary embolus (HCC) 09/2008 Deep vein thrombosis of lower extremity (HCC) Atrial tachycardia (HCC) RA stacey tach ablated 2004 at [facility]. Repeat EPS showed only non-sustained left [...] as needed (Shortness of breath). lactobac b #0-jer-deomfqault 300-250 million cell-mg oral capsule Take by [...] | SpO2 97% | BMI 26.28 kg/(m^2) Cantril elderly lady in no distress Mallampati I [...] 65 FEV1/FVC PRE (%REF) % 93 - YWL68-86% PRE 1.82 L/sec 0.98 0.89 KJA62-61% PRE (%REF) % 53 43 PEF PRE [...] 13 in 2009 No eosinophilia (last checked 1877-1367) IMPRESSION Ms. Flynn is a 71 year [...] for improved asthma control. Ju[facility]ore [facility] Attending Physician in this encounter Plan of Treatment +--------+ + + + + | Date | Type | Specialty | Care Team | Description | +--------+ + + + + | 08/14/ | Office | Cardiology | Elijah Whalen, | | | 2017 | Visit | | [address] [facility] | | | | | | [facility] | | | | | | [place], [place] | | | | | | [address] | | | | | | [phone] | | | | | | | | +--------+ + + + + | 10/24/ | Appointment | Pulmonary Disease | Cheng Christina Adult | | | 2018 | | | [address] | | | | | | [facility], | | | | | | [place] [address] | | +--------+ + + + + | 10/24/ | Results/Int | Pulmonary Disease | | | | 2018 | erpretation | | | | +--------+ + + + + | 10/24/ | Office | Pulmonary Disease | Juana Kilgore MD | | | 2017 | Visit | | [address] | | | | | | [facility], | | | | | | [place] [address] | | | | | | [phone] | | | | | | | | +--------+ + + + + | 10/29/ | Appointment | Radiology | [facility], | | | 2017 | | | [address] | | | | | | [place], [place] | | | | | | [address] | | | | | | [phone] | | | | | | | | +--------+ + + + + | 10/29/ | Office | Surgical Oncology | [facility], | | | 2017 | Visit | | [address] | | | | | | [place], [place] | | | | | | [address] | | | | | | [phone] | | | | | | | | +--------+ + + + + | 06/26/ | Office | Endocrinology, | Tapan Horowitz MD | | | 2017 | Visit | Diabetes & | [address] | | | | | Metabolism | [address] [place], | | | | | | [place] [address] | | | | | | [phone] | | | | | | | | +--------+ + + + + as of this encounter Visit Diagnoses + + | Diagnosis | + + | Asthma, unspecified asthma severity, unspecified whether complicated, unspecified | | whether persistent - Primary | + +
--- OUTSIDE RECORDS SUMMARY | ~2017-07-29 | XMS | Encounter Summary ---
Demographics + + + | Address | [address] | | | [place] [address] | + + + | Home Phone [...] + + + + + ECON | [address] | | [place], | [place] [address] | +------+ + + + + + Care Team Providers + +------+-------+ | Care Chemical Inspector Name | Role | Phone | [...] | | | | | [address] [facility] | | | | | | [facility] | | | | | | Mailcode: [id number] | | | | | | [address] [place] | | | | | | [address] [place], [place] | | | | | | [address] | | | | | | [phone] | | | +--------+--------+ + + + [...] [address] | | | | | | [place], [place] | | | | | | [address] | | | | | | [phone] | | | | | | | | +--------+ + + + + | 10/24/ | Appointment | Pulmonary Disease | Cheng Christina Adult | | | 2017 | | | [address] | | | | | | [facility], | | | | | | [place] [address] | | +--------+ + + + + | 10/24/ | Results/Int | Pulmonary Disease | | | | 2017 | erpretation | | | | +--------+ + + + + | 10/24/ | Office | Pulmonary Disease | Juana Kilgore MD | | | 2017 | Visit | | [address] | | | | | | [address] [place], | | | | | | [place] [address] | | | | | | [phone] | | | | | | | | +--------+ + + + + | 10/29/ | Appointment | Radiology | [facility], | | | 2017 | | | [address] | | | | | | [place], [place] | | | | | | [address] | | | | | | [phone] | | | | | | | | +--------+ + + + + | 10/29/ | Office | Surgical Oncology | [facility], | | | 2017 | Visit | | [address] | | | | | | [place], [place] | | | | | | [address] | | | | | | [phone] | | | | | | | | +--------+ + + + + | 06/26/ | Office | Endocrinology, | Tapan Horowitz MD | | | 2018 | Visit | Diabetes & | [address] | | | | | Metabolism | [address] [place], | | | | | | [place] [address] | | | | | | [phone] | | | | | | | | +--------+ + + + + as of this encounter Visit Diagnoses Not on filein this encounter"
--- OUTSIDE RECORDS SUMMARY | ~2017-07-29 | XMS | Encounter Summary ---
Demographics + + + | Address | [address] | | | [place] [address] | + + + | Home Phone [...] + + + + + ECON | [address] | | [place], | [place] [address] | +------+ + + + + + Care Team Providers + +------+-------+ | Care Sugarcane Research Technician Name | Role | Phone | [...] | | [address] | [facility] | | | | | Mailcode: CH9A | [place], [place] | | | | | [facility] | [address] | | | | | and | [phone] | | | | | Floor [place], [place] | | | | | | [address] | | | | | | [phone] | | | +--------+ + + + [...] Rd | | | | | | [place], [place] | | | | | | [address] | | | | | | [phone] | | | | | | | | +--------+ + + + + | 10/24/ | Appointment | Pulmonary Disease | Tech Pfl Adult | | | 2018 | | | [address] | | | | | | [place] [facility], | | | | | | [place] [address] | | +--------+ + + + + | 10/24/ | Results/Int | Pulmonary Disease | | | | 2018 | erpretation | | | | +--------+ + + + + | 10/24/ | Office | Pulmonary Disease | Juana Kilgore MD | | | 2017 | Visit | | [address] | | | | | | [place] [facility], | | | | | | [place] [address] | | | | | | [phone] | | | | | | | | +--------+ + + + + | 10/29/ | Appointment | Radiology | [facility], | | | 2017 | | | [address] | | | | | | [place], [place] | | | | | | [address] | | | | | | [phone] | | | | | | | | +--------+ + + + + | 10/29/ | Office | Surgical Oncology | [facility], | | | 2017 | Visit | | [address] | | | | | | [place] | | | | | | [address] | | | | | | [phone] | | | | | | | | +--------+ + + + + | 06/26/ | Office | Endocrinology, | Tapan Horowitz MD | | | 2017 | Visit | Diabetes & | [address] | | | | | Metabolism | [place], | | | | | | [place] [address] | | | | | | [phone] | | | | | | | | +--------+ + + + + as of this encounter Visit Diagnoses Not on filein this encounter"
--- OUTSIDE RECORDS SUMMARY | ~2017-07-29 | XMS | Encounter Summary ---
Demographics + + + | Address | [address] | | | [place] [address] | + + + | Home Phone [...] + + + + + ECON | [address] | | [place], | [place] [address] | +------+ + + + + + Care Team Providers + +------+-------+ | Care Administrative Services Coordinator Name | Role | Phone | + +------+-------+ | Antony Ribera MD | PCP | tel | + +------+-------+ Encounter Details +--------+ + + + + | Date | Type | Department | Care Team | Description | +--------+ + + + + | 07/19/ | Documentati | Cardiology | Elijah Whalen, | | | 2018 | on | Arrhythmia at [facility] | [address] | | | | | [address] | [facility] | | | | | Mailcode: CH9A | [place], [place] | | | | | [facility] | [address] | | | | | and | [phone] | | | | | Floor [place], [place] | | | | | | [address] | | | | | | [phone] | | | +--------+ + + + [...] Rd | | | | | | [place], [place] | | | | | | [address] | | | | | | [phone] | | | | | | | | +--------+ + + + + | 10/24/ | Appointment | Pulmonary Disease | Tech Pfl Adult | | | 2018 | | | [address] | | | | | | [place] [facility], | | | | | | [place] [address] | | +--------+ + + + + | 10/24/ | Results/Int | Pulmonary Disease | | | | 2018 | erpretation | | | | +--------+ + + + + | 10/24/ | Office | Pulmonary Disease | Juana Kilgore MD | | | 2017 | Visit | | [address] | | | | | | [place] [facility], | | | | | | [place] [address] | | | | | | [phone] | | | | | | | | +--------+ + + + + | 10/29/ | Appointment | Radiology | [facility], | | | 2017 | | | [address] | | | | | | [place], [place] | | | | | | [address] | | | | | | [phone] | | | | | | | | +--------+ + + + + | 10/29/ | Office | Surgical Oncology | [facility], | | | 2017 | Visit | | [address] | | | | | | [place] | | | | | | [address] | | | | | | [phone] | | | | | | | | +--------+ + + + + | 06/26/ | Office | Endocrinology, | Tapan Horowitz MD | | | 2017 | Visit | Diabetes & | [address] | | | | | Metabolism | [place], | | | | | | [place] [address] | | | | | | [phone] | | | | | | | | +--------+ + + + + as of this encounter Visit Diagnoses Not on filein this encounter"
--- OUTSIDE RECORDS SUMMARY | ~2017-07-29 | XMS | Encounter Summary ---
Demographics + + + | Address | [address] | | | [place] [address] | + + + | Home Phone [...] + + + + + ECON | [address] | | [place], | [place] [address] | +------+ + + + + + Care Team Providers + +------+-------+ | Care Cocoa Bean Cleaner Name | Role | Phone | [...] Pre-operative | | 2017 | cleopatra | [facility] at | | evaluation | | | | MPV | | | | | | Stay [address] | | | | | | [facility] | | | | | | Mailcode: UHN65 | | | | | | [place] | | | | | | [address] [place], [place] | | | | | | [address] | | | | | | [phone] | | | +--------+ + + + [...] as needed (Shortness of breath). LACTOBACILLUS COMB NO.4-EXV-SZEKHBKHJX 300 MILLION CELL-250 MG CAPSULE Take by [...] perfume, lotions or powder. Remove any nail brazilian from at least one fingernail. Do not [...] Surgery Check in Locations Day Stay Unit [place], fourth floor Room 6019 [facility] Day Stay [facility], fourth floor Admitting [facility], ninth floor lobby I Surgery Unit [facility] [place], sixth floor Surgery Check in Time: Someone from your surgeon's office or [facility] will provide you with information [...] it is after office hours, call the [facility] tie in machine operator at [phone] and ask them to page your doc [...] nostril two t imes daily. LACTOBACILLUS COMB NO.1-NLP-USNHIHMGLX 300 MILLION CELL-250 MG CAPSULE Take by [...] not take any Aspirin, vitamin E or non-lizyz roidal anti-inflammatory (NSAIDs i.e. Advil, Aleve, Ibuprofen) [...] perfume, lotions or powder. Remove any nail brazilian from at least one fingernail. Do not [...] Surgery Check in Locations Day Stay Unit [facility], fourth floor Room 6385 Surgery Check in Time: Someone from your surgeon's office or [facility] will provide you with information [...] it is after office hours, call the [facility] tie in machine operator at [phone] and ask them to page your doc tor. in this encounter Plan of Treatment +--------+ + + + + | Date | Type | Specialty | Care Team | Description | +--------+ + + + + | 08/14/ | Office | Cardiology | Elijah Whalen, | | | 2017 | Visit | | [address] | | | | | | [address] | | | | | | [place], [place] | | | | | | [address] | | | | | | [phone] | | | | | | | | +--------+ + + + + | 10/24/ | Appointment | Pulmonary Disease | Tech, Pfl Adult | | | 2018 | | | [address] | | | | | | [place] [facility], | | | | | | [place] [address] | | +--------+ + + + + | 10/24/ | Results/Int | Pulmonary Disease | | | | 2017 | erpretation | | | | +--------+ + + + + | 10/24/ | Office | Pulmonary Disease | Juana Kilgore MD | | | 2017 | Visit | | [address] | | | | | | [place] [facility], | | | | | | [place] [address] | | | | | | [phone] | | | | | | | | +--------+ + + + + | 10/29/ | Appointment | Radiology | [facility], | | | 2017 | | | [address] | | | | | | [place], [place] | | | | | | [address] | | | | | | [phone] | | | | | | | | +--------+ + + + + | 10/29/ | Office | Surgical Oncology | [facility], | | | 2017 | Visit | | [address] | | | | | | [place], [place] | | | | | | [address] | | | | | | [phone] | | | | | | | | +--------+ + + + + | 06/26/ | Office | Endocrinology, | Tapan Horowitz MD | | | 2017 | Visit | Diabetes & | [address] | | | | | Metabolism [place], | | | | | | [place] [address] | | | | | | [phone] | | | | | | | | +--------+ + + + + as of this encounter Visit Diagnoses Not on filein this encounter"
--- OUTSIDE RECORDS SUMMARY | ~2017-07-29 | XMS | Clinical Summary ---
Demographics + + + | Address | [address] | | | [place] [address] | + + + | Home Phone [...] | + + + | Organization | [facility] | + + + | Address | Unknown | + + + | Phone | Unavailable | + + + Support +------+ + + + + + | Name | Relationship | Address | Phone | +------+ + + + + + ECON | [address] | | [place], | [place] [address] | +------+ + + + + + Care Team Providers + +------+-------+ | Care Oval Or Circular Glass Cutter Name | Role | Phone | + +------+-------+ | Doug Ribera MD | PP | tel | + +------+-------+ Source Comments EDMAR is fully live on both EpicCare Ambulatory and EpicCare InPatient.[facility] Allergies + + + + + [...] | | | | Activ | | #[id number] | daily. | | | | | [...] | | | PhD CARISSA | [facility] | | | | | | [...] | 06/13/ | Office | | | care home current | | 2016 | Visit | [...] 2016 | Visit | | MD | ([facility]) (Primary Dx); | | | | | | Paroxysmal atrial | | | | | | fibrillation ([facility]) | +--------+ + + + + from [...] Rd | | | | | | [place], [place] | | | | | | [address] | | | | | | [phone] | | | | | | | | +--------+ + + + + | 10/24/ | Appointment | | Cheng Christina Adult | | | 2018 | | | [address] | | | | | | [facility], | | | | | | [place] [address] | | +--------+ + + + + | 10/24/ | Results/Int | | | | | 2017 | erpretation | | | | +--------+ + + + + | 10/24/ | Office | | Juana Kilgore MD | | | 2017 | Visit | | [address] | | | | | | [place] [facility], | | | | | | [place] [address] | | | | | | [phone] | | | | | | | | +--------+ + + + + | 10/29/ | Appointment | | [facility], | | | 2017 | | | [address] | | | | | | [place], [place] | | | | | | [address] | | | | | | [phone] | | | | | | | | +--------+ + + + + | 10/29/ | Office | | [facility], | | | 2017 | Visit | | [address] | | | | | | [place], [place] | | | | | | [address] | | | | | | [phone] | | | | | | | | +--------+ + + + + | 06/26/ | Office | | Tapan Horowitz MD | | | 2017 | Visit | | [address] | | | | | | [place], | | | | | | [place] [address] | | | | | | [phone] | | | | | | | [...] / Lot | + +------+--------+ +--------+--------+--------+ | Niles 450cc 12.7x10.8x7.0cm | | Right: | | | 12/31/ | 354-62 | | Style: [id number]: Qty: 1 | | Chest | | | 2015 | 13 | | on 06/26/2012 by John, | | | | | | /[id number] | | Kelsi Peguero MD | | | | | | 41-039 | | | | | | | | | | | | | | | | /[id number] | | | | | | | | 41 | + +------+--------+ +--------+--------+--------+ | Implant Shreyae Style 20 | | Right: | ALLERGAN | | 05/06/ | 20-450 | | High Profile 450cc - | | Chest | | | 2016 | | | [id number]: Qty: 1 on | | | | | | /[id number] | | 10/04/2012 by Alla, | | [...] Name: Adriana Flynn Order #: | | [id number] Date of : 1945 CSN: [id number] Admit Type: Ambulatory Room: GI 3 | | Procedure: Upper GI endoscopy Indications: | | Dysphagia Providers: ASHLEY LO MD (Doctor), UDAY | | SAM VIZCARRA (Nurse), GAUTAM BRADY, | | Research Pharmacist (Research Pharmacist) Referring MD: DOUG RIBERA MD | | [...] procedure. The Olympus [id number]-[id number] Endoscope | | #[id number] was introduced through the mouth, | | [...] Name: Adriana Flynn Order #: | | [id number] Date of : 1945 CSN: [id number] Admit Type: Ambulatory Room: GI 3 | | Procedure: Colonoscopy Indications: Screening for | | colorectal malignant neoplasm Providers: ASHLEY LO, | | (Doctor), UDAY VIZCARRA RN (Nurse), | | GAUTAM BRADY, Research Pharmacist (Research Pharmacist) Referring MD: DOUG AUSTIN | | MD [...] The Olympus | | PCF-H190L Peds Colonoscope #[id number] was | | introduced through the anus and advanced to the cecum, | | identified by appendiceal orifice and ileocecal | | valve. The quality of the bowel preparation | | was evaluated using the BBPS ([place] Bowel | | Preparation Scale) with scores [...] | + + + | Blood | [facility] [address] [facility] | | | [place] [address] | + + + + + | [...] | + + + | Blood | [facility], [facility] [address] [place] [address] | | | [place] [address] | + + + + + | [...] | ECG IMPRESSION | Electronically signed by: YLOANDA BURNS | | | | 05-16-2017 20:26:54 | | + + + + + + + | Specimen | Performing Laboratory | + + + | | [facility] [address] [facility] | | | [place] [address] | + + + from Last 3 Months
--- OUTSIDE RECORDS SUMMARY | ~2017-07-29 | XMS | Encounter Summary ---
Demographics + + + | Address | [address] | | | [place] [address] | + + + | Home Phone [...] + + + + + ECON | [address] | | [place], | [place] [address] | +------+ + + + + + Care Team Providers + +------+-------+ | Care Clinical Research Manager Name | Role | Phone | [...] | | | | | Medicine at [facility], | | | | | [place] | [place] [address] | | | | | [address] [facility] | [phone] | | | | | [facility] | | | | | | Mailcode: UHN67 | | | | | | [facility] [place] | | | | | | [address] [place], [place] | | | | | | [address] | | | | | | [phone] | | | +--------+ + + + [...] | | 2017 | Visit | | [address] | | | | | | [address] | | | | | | [place], [place] | | | | | | [address] | | | | | | [phone] | | | | | | | | +--------+ + + + + | 10/24/ | Appointment | Pulmonary Disease | Tech, Pfl Adult | | | 2018 | | | [address] | | | | | | [facility], | | | | | | [place] [address] | | +--------+ + + + + | 10/24/ | Results/Int | Pulmonary Disease | | | | 2017 | erpretation | | | | +--------+ + + + + | 10/24/ | Office | Pulmonary Disease | Juana Kilgore MD | | | 2017 | Visit | | [address] | | | | | | [place] [facility], | | | | | | [place] [address] | | | | | | [phone] | | | | | | | | +--------+ + + + + | 10/29/ | Appointment | Radiology | [facility], | | | 2017 | | | [address] | | | | | | [place], [place] | | | | | | [address] | | | | | | [phone] | | | | | | | | +--------+ + + + + | 10/29/ | Office | Surgical Oncology | [facility], | | | 2017 | Visit | | [address] | | | | | | [place], [place] | | | | | | [address] | | | | | | [phone] | | | | | | | | +--------+ + + + + | 06/26/ | Office | Endocrinology, | Tapan Horowitz MD | | | 2017 | Visit | Diabetes & | [address] | | | | | Metabolism | [place], | | | | | | [place] [address] | | | | | | [phone] | | | | | | | | +--------+ + + + + as of this encounter Visit Diagnoses Not on filein this encounter"
--- OUTSIDE RECORDS SUMMARY | ~2017-07-29 | XMS | Encounter Summary ---
Demographics + + + | Address | [address] | | | [place] [address] | + + + | Home Phone [...] + + + + + ECON | [address] | | [place], | [place] [address] | +------+ + + + + + Care Team Providers + +------+-------+ | Care Director Of Government Sales Name | Role | Phone | + [...] | | | | bone and | [place], [place] | Rd [place], | | | | | cartilage, | [address] | [place] | | | | | unspecified | Phone: | [address] | | | | | | [phone] | Phone: | | | | | | Fax: | [phone] | | | | | | [phone] | Fax: | | | | | | | [phone] | +--------+ + + + + + Encounter Details +--------+---------+ + + + | Date | Type | Department | Care Team | Description | +--------+---------+ + + + | 11/29/ | Office | [facility] | Tapan Horowitz MD | 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 | cartilage (Primary | | | | Center at [facility] | [place], | Dx); Thyroid nodule; | | | | Pavilion [address] | [place] [address] | Other specified | | | | [facility] | [phone] | disorders of bone | | | | Road Physicians | | density and | | | | [facility] | | structure, | | | | Pavilion [place], | | unspecified site | | | | [place] [address] | | (CODE) | | | | [phone] | | | +--------+---------+ + + + [...] Rd | | | | | | [place], [place] | | | | | | [address] | | | | | | [phone] | | | | | | | | +--------+ + + + + | 10/24/ | Appointment | Pulmonary Disease | Carri Pfl Adult | | | 2018 | | | [address] | | | | | | [facility], | | | | | | [place] [address] | | +--------+ + + + + | 10/24/ | Results/Int | Pulmonary Disease | | | | 2017 | erpretation | | | | +--------+ + + + + | 10/24/ | Office | Pulmonary Disease | Juana Kilgore MD | | | 2017 | Visit | | [address] | | | | | | [place], | | | | | | [place] [address] | | | | | | [phone] | | | | | | | | +--------+ + + + + | 10/29/ | Appointment | Radiology | [facility], | | | 2017 | | | [address] | | | | | | [place], [place] | | | | | | [address] | | | | | | [phone] | | | | | | | | +--------+ + + + + | 10/29/ | Office | Surgical Oncology | [facility], | | | 2017 | Visit | | [address] | | | | | | [place], [place] | | | | | | [address] | | | | | | [phone] | | | | | | | | +--------+ + + + + | 06/26/ | Office | Endocrinology, | Tapan Horowitz MD | | | 2018 | Visit | Diabetes & | [address] | | | | | Metabolism | [place], | | | | | | [place] [address] | | | | | | [phone] | | | | | | | [...] | + + + | Blood | [facility] [address] [place] [address] | | | [place] [address] | + + + + + | [...] + | Blood | [facility] [address] [facility] | | | [place] [address] | + + + + + | [...]
[~2017-07-29 09:15] MED LIST: ACIPHEX20 MG PO; ATIVAN1 MG PO; BENZONATATE100 MG PO; CITRUCEL479 GM PO; CLINDAMYCIN HC300 MG PO; DAIRY DIGES3000 UNIT PO; DOXYCYCLINE HY100 MG PO; FLONASE2 SPRAY; FRESHKOTE15 ML OP; KLOR-CON M2020 MEQ PO; MEDROL4 M1 PO; PROMETHAZINE V237 ML PO; PROVENTIL HFA6.7 GM INH; PULMICORT FLE180 MCG IH; TENORMIN50 MG PO; TIKOSYN500 MCG PO; VOLTAREN100 GM TP; ZETIA10 MG PO
--- NOTE | 2017-07-30 07:11 | EKG ---
[facility] [address] [place] [address] Signed Sinus rhythm with premature atrial complexes Rightward axis Anterior infarct , age undetermined ST \T\ T wave abnormality, consider lateral ischemia Abnormal ECG When compared with ECG of 29-JUL-2017 09:42, (Unconfirmed) Sinus rhythm has replaced Atrial flutter Vent. rate has decreased BY 46 BPM T wave inversion now evident in Anterior leads Confirmed by TAYLOR PAULA MD ([id number]) on 07/30/2017 7:11:23 AM Electronically Signed By: TAYLOR PAULA MD 07/30/17 0711 PATIENT NAME: LAUREN BAXTER Electrocardiogram DATE OF : 41 PHYSICIAN: TAYLOR PAULA MD REPORT #: [id number] REPORT IS CONFIDENTIAL AND NOT TO BE RELEASED WITHOUT AUTHORIZATION
--- NOTE | 2017-08-01 07:19 | EKG ---
[facility] [address] [facility] [place], [place] [address] Signed Atrial flutter with variable AV block Rightward axis Nonspecific ST and T wave abnormality Abnormal ECG No previous ECGs available Confirmed by TAYLOR PAULA MD ([id number]) on 08/01/2017 7:19:38 AM Electronically Signed By: TAYLOR PAULA MD 08/01/17 0719 PATIENT NAME: LAUREN BAXTER Electrocardiogram DATE OF : 41 PHYSICIAN: TAYLOR PAULA MD REPORT #: [id number] REPORT IS CONFIDENTIAL AND NOT TO BE RELEASED WITHOUT AUTHORIZATION
== END 2017-07-29 17:25 | disposition short-term general hospital (02) ==
LOC: ED 09:15
DX: I48.91 Unspecified atrial fibrillation (principal); J45.909 Unspecified asthma, uncomplicated; Z85.3 Personal history of malignant neoplasm of breast; Z90.49 Acquired absence of other specified parts of digestive tract; Z98.890 Other specified postprocedural states; Z90.12 Acquired absence of left breast and nipple; Z88.1 Allergy status to other antibiotic agents; Z88.8 Allergy status to other drugs, medicaments and biological substances; Z88.2 Allergy status to sulfonamides; Z88.6 Allergy status to analgesic agent; Z79.899 Other long term (current) drug therapy
CPT/HCPCS: 71046; 80053; 83735; 83880; 84484; 85025; 93005; 93010; 96374; 96375; 96376; 99285; J0282; J2704

== ENCOUNTER 2020-05-04 12:06 | Emergency (ER) | payer MEDICARE, OTHER ==
[~2020-05-04] VITALS: Ht 165.1 cm; Wt 64.4 kg
--- OUTSIDE RECORDS SUMMARY | ~2020-05-04 | XMS | Encounter Summary ---
Demographics + + + | Address | [address] | | | [place] [address] | + + + | Home Phone | | + + + | Preferred Language | Unknown | + + + | Marital Status | | + + + | Congregation Affiliation | CHR | + + + | Race | White | + + + | Ethnic Group | Not or | + + + Author + + + | Author | [facility] | + + + | Organization | [facility] | + + + | Address | Unknown | + + + | Phone | Unavailable | + + + Support + + + + + | Name | Relationship | Address | Phone | + + + + + | Gene Gee | ECON | [address] | | | | | [place], | | | | | [place] [address] | | + + + + + Care Team Providers + +------+ + | Care Wedding Decorator Name | Role | Phone | + +------+ + | Antony Ribera MD | PCP | | + +------+ + Reason for Visit +--------+--------+ + | Reason | Onset | Comments | | | Date | | +--------+--------+ + | Other | 10/23/ | results | | | 2017 | | +--------+--------+ + Encounter Details +--------+ + + + + | Date | Type | Department | Care Team | Description | +--------+ + + + + | 10/23/ | Telephone | Cardiology | Elijah Whalen, | Other (results ) | | 2017 | | Arrhythmia at [facility] | MD [address] | | | | | [address] | [place] | | | | | [facility] | [place], [place] | | | | | and [place], | [address] | | | | | [place] [address] [facility] | [phone] | | | | | Floor [place], [place] | | | | | | [address] | | | | | | [phone] | | | +--------+ + + + + Social History + +-------+ +--------+------+ | Tobacco Use | Types | Packs/Day | Years | Date | | | | | Used | | + +-------+ +--------+------+ | Never Smoker | | | | | + +-------+ +--------+------+ + +---+---+---+ | Smokeless Tobacco: | | | | | Never Used | | | | + +---+---+---+ + + | Comments: nonsmoker/parents smoked | + + + + +---------+ + | Alcohol Use | Drinks/Week | oz/Week | Comments | + + +---------+ + | No | | | | + + +---------+ + + + + | Sex Assigned at | Date Recorded | | | | + + + | Not on file | | + + + documented as of this encounter Miscellaneous Notes Telephone Encounter - Mayra Chapman RN - 10/25/2016 12:10 PM PDTMD response called to pt. Appt with Dr. Whalen scheduled for 11/14/16. elephone Encounter - Mayra Chapman RN - 10/25/2016 12:0 9 PM PDT MD Mayra Nolen, SAM Caller: Unspecified (2 days ago, 1:45 PM) Thanks Mayra. Let's get her in to see me in clinic. She's already a little over the m aximum usual dose of metoprolol Elijah elephone Encounte r - Mayra Chapman RN - 10/23/2016 3:25 PM PDTReturned call to pt. Her questions are re: recent Zio monitor - she is aware of an irregular rhythm and skipping in the late aftern oon and evening. Not bothered in morning. She is taking metoprolol tartrate 75mg TID. She did try increasing mid-day dose to 100mg and tried 100mg as PM dose "a couple times" - no c hange in irregularity/skipping. Denies caffeine intake. Working with pulm Dr. [place] on asthma meds --- she does correlate an increase in irregulari ty/skipping after nebulizer use. She is not bothered by irregularity during the day when she is being active - but notices t hem when sitting quietly in evening watching TV. States she has been dizzy twice in last month and has noticed increased SOB while walking [place]. She said her recent lung testing showed decreased lung capacity compared to her pr ior testing. Discussed with pt that Zio monitor identified atrial fibrillation. Discussed that atrial f ibrillation mgmt focuses on stroke prevention (she is anticoagulated on rivaroxaban) and sym ptom mgmt. We talked about lifestyle mgmt - eliminating caffeine & stimulants, managing str ess, getting routine aerobic exercise. I suggested she schedule follow-up with Dr. Whalen. Will route to Dr. Whalen --- do you recommend any changes other than follow-up appt with y ou? Do you suggest pt try metoprolol tartrate 75mg in AM and 100mg mid-day and 100mg PM? O ther? (see 10/09 MyChart encounter for home BP readings). Thank you. elephone Encounter - Katty Starkey - 017 2:23 PM PDTPatient returns Mayra's call. Nurse unavailable. Please call Carol elephone Ajay nielsen - Mayra Chapman RN - 10/23/2016 2:17 PM PDTReturned pt's call - no answer, msg left on pt's identified voicemail requesting return call. elephone Encounter - Emily Bella - 10/23/2016 1: 45 PM PDTPatient calls asking for the following test results: Patient had a 30 day heart mo nitor and has not received the results and would like a call back to discuss. Okay to send Mychart Response? N/a The best phone number to reach the patient today is [phone]. Best time to reach the p atient is any time. ~~~ ROUTE TO CAR TRIAGE POOL ~~~~~ documented in this encount er Plan of Treatment Not on filedocumented as of this encounter Visit Diagnoses Not on filedocumented in this encounter
--- OUTSIDE RECORDS SUMMARY | ~2020-05-04 | XMS | Encounter Summary ---
Demographics + + + | Address | [address] | | | [place] [address] | + + + | Home Phone | | + + + | Preferred Language | Unknown | + + + | Marital Status | | + + + | Druze Affiliation | CHR | + + + | Race | White | + + + | Ethnic Group | Not or | + + + Author + + + | Author | [facility] | + + + | Organization | [facility] | + + + | Address | Unknown | + + + | Phone | Unavailable | + + + Support + + + + + | Name | Relationship | Address | Phone | + + + + + | Gene Gee | ECON | [address] | | | | | [place], | | | | | [place] [address] | | + + + + + Care Team Providers + +------+ + | Care Chainstitch Zipper Setter Name | Role | Phone | + +------+ + | Antony Ribrea MD | PCP | | + +------+ + Encounter Details +--------+ + + + + | Date | Type | Department | Care Team | Description | +--------+ + + + + | 07/19/ | Documentati | Cardiology | Elijah Whalen, | | | 2018 | on | Arrhythmia at [facility] | [address] | | | | | [address] | [address] | | | | | [facility] | [place], [place] | | | | | and Healing, | [address] | | | | | [place] [address] [facility] | [phone] | | | | | Floor [place], [place] | | | | | | [address] | | | | | | [phone] | | | +--------+ + + + [...] | | | + +---+---+---+ + + +---------+ + | Alcohol Use [...] this encounter Miscellaneous Notes Telephone Encounter - Monique Fuller RN - 07/26/2017 4:36 PM PSTECHO received: Patient calls with the following question: Patient called to schedule appt with Dr. Christiano aceves. Next available opening is August 15. Patient is requesting a sooner appt. Okay to send Mychart Response? ok The best phone number to reach the patient today is [phone]. Best time to reach the p atient is anytime Called pt- she is recovering from the flu, and still notices some skipped beats. She will see Dr Whalen Aug 14 at 250 pm, follow up with pcp for flu elephone Encounter - Elijah Whalen MD - 07/19/2017 11:01 AM PSTI was contacted by Dr. Ribera. Patient has had a couple of weeks of URI. Now in atrial fibrillation with rapid ventricular response ~150 BPM . CXR showed some heart failure. Started lasix 20 and she is feeling better. He feels she is improving and very safe for outpatient management. He ordered an echo for this afternoon Plan: - Dr. Ribera will fax ECG and echo report to me - If EF >40% I will ask Monique Jonny to contact patient next week and confirm symptoms im proving and I will see her in next available within around a month - If EF <40% I will contact patient and decide on early outpatient overbook vs admissionEle ctronically signed by Elijah Whalen MD at 07/19/2017 11:05 AM PSTdocumented in this encoun ter Plan of Treatment Not on filedocumented as of this encounter Visit Diagnoses Not on filedocumented in this encounter"
--- OUTSIDE RECORDS SUMMARY | ~2020-05-04 | XMS | Encounter Summary ---
Demographics + + + | Address | [address] | | | [place] [address] | + + + | Home Phone | | + + + | Preferred Language | Unknown | + + + | Marital Status | | + + + | Spiritism Affiliation | CHR | + + + | Race | White | + + + | Ethnic Group | Not or | + + + Author + + + | Organization | Unknown | + + + | Address | Unknown | + + + | Phone | Unavailable | + + + Support + + + + + | Name | Relationship | Address | Phone | + + + + + | Gene Gee | ECON | [address] | | | | | [place], | | | | | [place] [address] | | + + + + + Care Team Providers + +------+ + | Care Manager Field Investigations Name | Role | Phone | + +------+ + PCP | Unavailable | + +------+ + Encounter Details +--------+ + + + + | Date | Type | Department | Care Team | Description | +--------+ + + + + | 10/11/ | Office | | Note, Outpatient | Progress Note | | 2005 | Visit-Trans | | Clinic | | | | cribed | | | | +--------+ + + + + Social History + +-------+ +--------+------+ | Tobacco Use | Types | Packs/Day | Years | Date | | | | | Used | | + +-------+ +--------+------+ | Never Assessed | | | | | + +-------+ +--------+------+ + + + | Sex Assigned at | Date Recorded | | | | + + + | Not on file | | + + + documented as of this encounter Progress Notes Interface, Grain Trader In - 02/12/2005 12:13 AM PDT [id number] [facility] Date: 10/11/2004 Clinic: [facility] Diagnoses: 1. History of multiple large and symptomatic liver cysts. 1.1. Status post exploratory laparotomy with excision and resection of multiple liver cysts, alcohol ablation of the cyst, and marsupialization on June 29, 2004. 1.2. Final pathology on a total of 10 cysts was consistent with peribiliary benign cysts. 1.3. The patient had a history of rupture and bleeding into the largest cyst which was 9 x 12 cm in size and had been rapidly growing. 1.4. The patient had an initially uneventful postoperative course prior to representing with a partial small-bowel obstruction. 2. History of partial small-bowel obstruction, discharged on July 07, 2004. Then on , the patient developed abdominal pain, went to the emergency room at a local [facility] in [place]. A CT scan there showed multiple air-fluid levels and no free air. An NG tube was placed, and she was transferred to [facility] on July 17, 2004. 2.1. The patient underwent bowel decompression with NG suction and a gastrografin small-bowel follow-through. Her obstruction resolved with medical management, and she was discharged on July 23, 2004. 3. A history of supraventricular tachycardia. 3.1. The patient developed ectopic atrial tachycardia postoperatively in June 2004. At that time, she was placed on an antiarrhythmic and was discharged on amiodarone and digoxin. She has been following up with Dr. Fuentes at [facility]iology. She has since stopped digoxin and amiodarone and is back on atenolol. 4. She is status post dobutamine stress echocardiogram done yesterday, results currently pending. 5. Sjogren disease. 6. Mitral valve prolapse. 7. Asthma. 8. Gastroesophageal reflux disease. 9. Carpal tunnel syndrome. 10. Fibromyalgia. 11. Fibrocytic breast disease. 12. Esophageal dysmotility syndrome. 13. Temporomandibular joint disease. 14. Status post ectopic that ruptured at age 20, appendectomy at age 25, lysis of adhesions in 2002, bladder suspension at age 51, a laparoscopic cholecystectomy in 2002, open hernia repair in 2003 with mesh. 15. Status post left hemicolectomy for diverticulitis, history of hysterectomy at age 46 for endometriosis. Medications: Estrace 0.75 cavyx-b-lfuj patch, atenolol 25 mg q.day, Protonix 40 mg q.day, Combivent, Serevent, Pulmicort, and Flonase. Subjective: The patient is here for interval followup. She was last seen approximately 6 weeks ago. Today, she complains of a rash over her trunk for 4 days which has worsened with scratching. Of note, she is currently staying with her daughter and has been out trimming bushes. She has been taking Benadryl for the rash which has helped that significantly. She also complains of persistent small thrombosed vein of her left medial and dorsal wrist. Other than that, she is doing well. She is tolerating her diet and is having regular bowel movements. She is currently off pain medication. Her incision is healing well. She just had her dobutamine stress echocardiogram completed yesterday. Physical Examination: Vital Signs: Height is 5 feet 6 inches, weight 134 pounds, blood pressure 120/70, temperature 97.8 degrees, and pulse 62. General: Alert and in no apparent distress. HEENT: Oral mucosa is moist. Sclerae are anicteric. Respiratory: Clear to auscultation bilaterally. Cardiovascular: Regular rate and rhythm. Abdomen: Soft with healing scars across her abdomen. There are no evidence of masses, hernia, ascites, or tenderness. Extremities: Warm and without edema. Laboratory: No labs were drawn today. Assessment and Plan: A 59-year-old female status post excision and resection of multiple liver cysts. 1. We will see the patient back in clinic in June 2005. At present, she is doing well. We will plan a repeat CT scan at that time to assess whether her hepatic cysts are growing. 2. The patient will continue to follow up for her cardiac care with Dr. Fuentes. The results of her dobutamine stress echocardiogram done yesterday are pending. 3. We have counseled the patient that her rash will likely resolve whenever she has discovered which irritant in her environment is causing it. In the meantime, we have instructed her to treat her rash symptomatically with Benadryl and topical skin soothing agents such as Aveeno baths. 4. Her thrombosed wrist veins will likely resolve with time. 5. We will see her back in June 2005. This patient was seen and examined with Dr. Katie Callahan. Livier Levine M.D. Katie Callahan M.D. Clerk Stenographer Division of Liver and Pancreas Transplantation / [id number] / [id number] / [id number] / [id number] Electronically signed by Katie Callahan 10-24-2004 02:31:31 PM documented i n this encounter Plan of Treatment Not on filedocumented as of this encounter Visit Diagnoses Not on filedocumented in this encounter"
--- OUTSIDE RECORDS SUMMARY | ~2020-05-04 | XMS | Encounter Summary ---
Demographics + + + | Address | [address] | | | [place] [address] | + + + | Home Phone | | + + + | Preferred Language | Unknown | + + + | Marital Status | | + + + | Holiness Affiliation | CHR | + + + | Race | White | + + + | Ethnic Group | Not or | + + + Author + + + | Author | [facility] | + + + | Organization | [facility] | + + + | Address | Unknown | + + + | Phone | Unavailable | + + + Support + + + + + | Name | Relationship | Address | Phone | + + + + + | Gene Gee | ECON | [address] | | | | | [place], | | | | | [place] [address] | | + + + + + Care Team Providers + +------+ + | Care Coding Tech Name | Role | Phone | + +------+ + | Antony Ribera MD | PCP | | + +------+ + Reason for Visit + + + | Reason | Comments | + + + | Osteopenia | | + + + Encounter Details +--------+---------+ + + + | Date | Type | Department | Care Team | Description | +--------+---------+ + + + | 06/28/ | Office | [facility] | Tapan Horowitz MD | Osteopenia (Primary | | 2009 | Visit | [facility] | [address] | Dx) | | | | [facility] | [address] [place], | | | | | [address] | [place] [address] | | | | | [address] | [phone] | | | | | Physician's | | | | | | Pavilion, 1st floor | | | | | | [place], [place] | | | | | | [address] | | | | | | [phone] | | | +--------+---------+ + + + Social History + +-------+ +--------+------+ | Tobacco Use | Types | Packs/Day | Years | Date | | | | | Used | | + +-------+ +--------+------+ | Passive Smoke | | | | | | Exposure - Never | | | | | | Smoker | | | | | + +-------+ +--------+------+ + + | Comments: parents smoked | + + + + +---------+ + | Alcohol Use | Drinks/Week | oz/Week | Comments | + + +---------+ + | No | | | | + + +---------+ + + + + | Sex Assigned at | Date Recorded | | | | + + + | Not on file | | + + + documented as of this encounter Last Filed Vital Signs + + + + + | Vital Sign | Reading | Time Taken | Comments | + + + + + | Blood Pressure | 132/72 | 06/28/2009 11:04 AM | | | | | PST | | + + + + + | Pulse | 69 | 06/28/2009 11:04 AM | | | | | PST | | + + + + + | Temperature | - | - | | + + + + + | Respiratory Rate | 10 | 06/28/2009 11:04 AM | | | | | PST | | + + + + + | Oxygen Saturation | - | - | | + + + + + | Inhaled Oxygen | - | - | | | Concentration | | | | + + + + + | Weight | 66.3 kg (146 lb 3.2 | 06/28/2009 11:04 AM | | | | oz) | PST | | + + + + + | Height | - | - | | + + + + + | Body Mass Index | 23.96 | 12/29/2008 10:13 AM | | | | | PDT | | + + + + + documented in this encounter Progress Notes Tapan Hroowitz MD - 06/28/2009 11:27 AM PSTFormatting of this note might be different from t brigido original. Chief Complaint: Patient being seen in followup for the following issues: Osteopenia ROS All other systems have been reviewed and are unchanged from past visits. S: doing well O: Filed Vitals: 06/28/2009 11:04 AM Weight: 66.316 kg (146 lb 3.2 oz) BP: 132/72 Pulse: 69 Resp: 10 PainSc: 0 - Zero gen: NAd cv reg Lungs cta A/p 1.Osteopenia: Pt stopped Boniva in December 2008 and had first Reclast infusion on January 19 200 9. She had no problems with it. Will check bone density in january 2010 and likely do repeat in fusion. Pt sees a dentist yearly. Her calcium and vit D intake are good (pt uses liquid and pill calcium citrate). doc umented in this encounter Miscellaneous Notes Scan - Other, Faculty - 06/28/2009 11:24 AM PSTAssociated Order(s): ORDERS OTHER can - Other, Faculty - 06/22/2009 12:00 AM PSTAssociated Order(s): LAB REPORTS documented in this encou nter Plan of Treatment Not on filedocumented as of this encounter Procedures + +--------+ + + + | Procedure Name | Priori | Date/Time | Associated Diagnosis | Comments | | | ty | | | | + +--------+ + + + | ORDERS OTHER | | 06/28/2009 | | Results for this | | | | 11:24 AM | | procedure are in the | | | | PST | | results section. | + +--------+ + + + | LAB REPORTS | | 06/22/2009 | | Results for this | | | | 12:00 AM | | procedure are in the | | | | PST | | results section. | + +--------+ + + + | VITAMIN D, | Routin | 06/22/2009 | | Results for this | | 25-HYDROXY, SERUM | e | | | procedure are in the | | | | | | results section. | + +--------+ + + + | TSH | Routin | 06/22/2009 | | Results for this | | | e | | | procedure are in the | | | | | | results section. | + +--------+ + + + documented in this encounter Results ORDERS OTHER (06/28/2009 11:24 AM PST) + + + | Narrative | Performed At | + + + | | | + + + + + | Procedure Note | + + | Gisele Strong - 06/28/2009 11:24 AM PST | | | + + LAB REPORTS (06/22/2009 12:00 AM PST) + + + | Narrative | Performed At | + + + | | | + + + + + | Procedure Note | + + | Ligia, Faculty - 06/22/2009 12:00 AM PST | | | + + VITAMIN D, 25-HYDROXY, SERUM (06/22/2009) + +-------+ + + + | Component | Value | Ref Range | Performed | Pathologist | | | | | At | Signature | + +-------+ + + + | VITAMIN D | 53 | 30 - 80 ng/mL | [facility] | | | 25 HYDROXY | | | LAB - | | | | | | [place] | | + +-------+ + + + + + | Specimen | + + | Blood - Blood | + + + + + + + | Performing | Address | City/State/Zipcode | Phone Number | | Organization | | | | + + + + + | [facility] - | [address] | [place] | | | [place] | [address] | [address] | | + + + + + TSH (06/22/2009) + +-------+ + + + | Component | Value | Ref Range | Performed | Pathologist | | | | | At | Signature | + +-------+ + + + | TSH | 2.59 | 0.3 - 5.0 | [facility] | | | | | uIU/ml | LAB - | | | | | | [place] | | + +-------+ + + + + + | Specimen | + + | Blood - Blood | + + + + + + + | Performing | Address | City/State/Zipcode | Phone Number | | Organization | | | | + + + + + | [facility] - | [address] | [place], [place] | | | [place] | [address] | [address] | | + + + + + documented in this encounter Visit Diagnoses + + | Diagnosis | + + | Osteopenia - Primary Disorder of bone and cartilage, unspecified | + + documented in this encounter"
--- OUTSIDE RECORDS SUMMARY | ~2020-05-04 | XMS | Encounter Summary ---
Demographics + + + | Address | [address] | | | [place] [address] | + + + | Home Phone | | + + + | Preferred Language | Unknown | + + + | Marital Status | | + + + | Mandaeism Affiliation | CHR | + + + | Race | White | + + + | Ethnic Group | Not or | + + + Author + + + | Author | [facility] | + + + | Organization | [facility] | + + + | Address | Unknown | + + + | Phone | Unavailable | + + + Support + + + + + | Name | Relationship | Address | Phone | + + + + + | Gene Gee | ECON | [address] | | | | | [place], | | | | | [place] [address] | | + + + + + Care Team Providers + +------+ + | Care Business Office Specialist Name | Role | Phone | + +------+ + | Antony Ribera MD | PCP | | + +------+ + Reason for Visit AUTH/CERT +--------+--------+ + + + + | Status | Reason | Specialty | Diagnoses / | Referred By | Referred To | | | | | Procedures | Contact | Contact | +--------+--------+ + + + + | Closed | | | | | [address] [address] | | | | | | | [facility] | | | | | | | [address] | | | | | | | [place] | | | | | | | [id number] | | | | | | | [facility] | | | | | | | [place], | | | | | | | [place] [address] | | | | | | | Phone: | | | | | | | [phone] | | | | | | | Fax: | | | | | | | [phone] | +--------+--------+ + + + + Encounter Details +--------+ + + + + | Date | Type | Department | Care Team | Description | +--------+ + + + + | 01/01/ | Hospital | Cardiac | S[facility], Car Ecg Tech | | | 2007 | Encounter | Non-Invasive Testing | [address] | | | | | at [address] | [facility] | | | | | [address] | [place] [address] | | | | | [address] | | | | | | [place], [address] [place] [address] | | | | | | [place], [place] | | | | | | [address] | | | | | | [phone] | | | +--------+ + + + + Social History + +-------+ +--------+------+ | Tobacco Use | Types | Packs/Day | Years | Date | | | | | Used | | + +-------+ +--------+------+ | Never Smoker | | | | | + +-------+ +--------+------+ + + +---------+ + | Alcohol Use | Drinks/Week | oz/Week | Comments | + + +---------+ + | No | | | | + + +---------+ + + + + | Sex Assigned at | Date Recorded | | | | + + + | Not on file | | + + + documented as of this encounter Medications at Time of Discharge + + + +---------+--------+ + | Medication | Sig | Dispensed | Refills | Start | End Date | | | | | | Date | | + + + +---------+--------+ + | calcium | 2 tabs in evening | | 0 | | | | citrate-vitamin D | and liquid calcium | | | | | | (CITRACAL + D) | citrate in AM | | | | | | 315-200 mg-unit Oral | | | | | | | Tablet | | | | | | + + + +---------+--------+ + | Vitamin A-Vitamin | take 1 capsule by | | 0 | | | | C-Vit E-Min | oral route once | | | | | | (ANTIOXIDANT | daily with food | | | | | | FORMULA) Oral | | | | | | | Capsule | | | | | | + + + +---------+--------+ + documented as of this encounter Miscellaneous Notes Scan - Other, Faculty - 01/18/2008 12:00 AM PDT documented in this encounter Plan of Treatment Not on filedocumented as of this encounter Visit Diagnoses Not on filedocumented in this encounter"
--- OUTSIDE RECORDS SUMMARY | ~2020-05-04 | XMS | Encounter Summary ---
Demographics + + + | Address | [address] | | | [place] [address] | + + + | Home Phone | | + + + | Preferred Language | Unknown | + + + | Marital Status | | + + + | Druze Affiliation | CHR | + + + | Race | White | + + + | Ethnic Group | Not or | + + + Author + + + | Author | [facility] | + + + | Organization | [facility] | + + + | Address | Unknown | + + + | Phone | Unavailable | + + + Support + + + + + | Name | Relationship | Address | Phone | + + + + + | Gene Gee | ECON | [address] | | | | | [place], | | | | | [place] [address] | | + + + + + Care Team Providers + +------+ + | Care Rubber Goods Tester Name | Role | Phone | + +------+ + | Alec Hill MD | PCP | | + +------+ + Encounter Details +--------+ + + + + | Date | Type | Department | Care Team | Description | +--------+ + + + + | 05/24/ | Ancillary | Registration [address] | [address], | | | 2006 | Registratio | [address] | [address] | | | | n | [address] Mail[address]: [id number] | [place], [place] | | | | | [place], [place] | [address] | | | | | [address] | [phone] | | | | | [phone] | | | +--------+ + + + [...] Comments | + + +---------+ + | Yes | | | | + + +---------+ + + + + | Sex Assigned at | Date Recorded | | | | + + + | Not on file | | + + + documented as of this encounter Plan of Treatment Not on filedocumented as of this encounter Visit Diagnoses Not on filedocumented in this encounter"
--- OUTSIDE RECORDS SUMMARY | ~2020-05-04 | XMS | Encounter Summary ---
Demographics + + + | Address | [address] | | | [place] [address] | + + + | Home Phone | | + + + | Preferred Language | Unknown | + + + | Marital Status | | + + + | Jew Affiliation | CHR | + + + | Race | White | + + + | Ethnic Group | Not or | + + + Author + + + | Author | [facility] | + + + | Organization | [facility] | + + + | Address | Unknown | + + + | Phone | Unavailable | + + + Support + + + + + | Name | Relationship | Address | Phone | + + + + + | Gene Gee | ECON | [address] | | | | | [place], | | | | | [place] [address] | | + + + + + Care Team Providers + +------+ + | Care Field Crop Harvest Worker Name | Role | Phone | + +------+ + | Antony Ribera MD | PCP | | + +------+ + Reason for Visit + +--------+ + | Reason | Onset | Comments | | | Date | | + +--------+ + | Telephone follow-up | 06/27/ | 06/26/17 | | | 2017 | | + +--------+ + Encounter Details +--------+ + + + + | Date | Type | Department | Care Team | Description | +--------+ + + + + | 06/27/ | Telephone | Endoscopic | [facility] | Telephone follow-up | | 2017 | | Procedural Unit at | [facility] [address] | (06/26/17) | | | | [address] | [address] [place], | | | | | [address] | [place] [address] | | | | | [address], | [phone] | | | | | 4th floor [place], | | | | | | [place] [address] | | | | | | [phone] | | | +--------+ + + + [...] this encounter Miscellaneous Notes Telephone Encounter - Yessenia Louie MA - 06/27/2017 9:38 AM PSTFollow up phone call to patient regarding GI procedure from 06/26/17. Patient states the following: "I'm doing very well" Informed the patient that their referring provider will receive a copy of the procedure results with in the next week. Patient advised to review discharge instructions and to give us a call if they have any que stions or concerns documented in this en counter Plan of Treatment Not on filedocumented as of this encounter Visit Diagnoses Not on filedocumented in this encounter
--- OUTSIDE RECORDS SUMMARY | ~2020-05-04 | XMS | Encounter Summary ---
Demographics + + + | Address | [address] | | | [place] [address] | + + + | Home Phone | | + + + | Preferred Language | Unknown | + + + | Marital Status | | + + + | Protestant Affiliation | CHR | + + + | Race | White | + + + | Ethnic Group | Not or | + + + Author + + + | Author | [facility] | + + + | Organization | [facility] | + + + | Address | Unknown | + + + | Phone | Unavailable | + + + Support + + + + + | Name | Relationship | Address | Phone | + + + + + | Gene Gee | ECON | [address] | | | | | [place], | | | | | [place] [address] | | + + + + + Care Team Providers + +------+ + | Care Publication Manager Name | Role | Phone | + +------+ + | Antony Ribera MD | PCP | | + +------+ + Encounter Details +--------+ + + + + | Date | Type | Department | Care Team | Description | +--------+ + + + + | 07/21/ | Hospital | [facility] | | | | 2013 | Encounter | [facility] at [facility] [address] | | | | | | [facility] [address] | | | | | | [place], [address] [place] [address] | | | | | | [place], [place] | | | | | | [address] | | | | | | [phone] | | | +--------+ + + + [...] at Time of Discharge + + + +---------+ + + | Medication | Sig | Dispensed | Refills | Start | End Date | | | | | | Date | | + + + +---------+ + + | calcium | 2 tabs in evening | | 0 | | | | citrate-vitamin D | and liquid calcium | | | | | | (CITRACAL + D) | citrate in AM | | | | | | 315-200 mg-unit Oral | | | | | | | Tablet | | | | | | + + + +---------+ + + | ezetimibe (ZETIA) | Take 10 mg by mouth | | 0 | | | | 10 mg Oral Tablet | once daily. | | | | | + + + +---------+ + + | LORAZEPAM 1 mg | Take 0.5 tablets by | | 0 | 06/10/20 | | | Oral tablet | mouth once daily at | | | 12 | | | | bedtime as needed. | | | | | + + + +---------+ + + | rabeprazole | Take 20 mg by mouth | | 0 | | | | (ACIPHEX) 20 mg Oral | every twelve hours. | | | | | | Tablet, Delayed | | | | | | | Release (E.C.) | | | | | | + + + +---------+ + + | Vitamin A-Vitamin | take 1 capsule by | | 0 | | | | C-Vit E-Min | oral route once | | | | | | (ANTIOXIDANT | daily with food | | | | | | FORMULA) Oral | | | | | | | Capsule | | | | | | + + + +---------+ + + documented as of this encounter Procedure Notes [facility] - 08/08/2013 10:01 AM PSTAssociated Order(s): ORDERS OTHERElectronically sig elenita by Faculty Other at 08/08/2013 10:01 AM PSTdocumented in this encounter Miscellaneous Notes Scan - [facility] - 08/15/2013 10:43 AM PSTElectronically signed by Faculty Other at 10:43 AM PSTdocumented in this encounter Plan of Treatment Not on filedocumented as of this encounter Procedures + +--------+ + + + | Procedure Name | Priori | Date/Time | Associated Diagnosis | Comments | | | ty | | | | + +--------+ + + + | MA DIAGNOSTIC MAMMO | Routin | 07/21/2013 | | Results for this | | LEFT W/CAD | e | 11:17 AM | | procedure are in the | | | | PST | | results section. | + +--------+ + + + | ORDERS OTHER | | 07/21/2013 | | Results for this | | | | 12:00 AM | | procedure are in the | | | | PST | | results section. | + +--------+ + + + documented in this encounter Results MA DIAGNOSTIC MAMMO LEFT W/CAD (07/21/2013 11:17 AM PST) + + + + + + | Component | Value | Ref Range | Performed | Pathologist | | | | | At | Signature | + + + + + + | MA | Patient History:Patient | | | | | DIAGNOSTIC | has history of breast | | | | | MAMMO LEFT | cancer at age 62.Family | | | | | W/CAD | history of breast cancer | | | | | | in maternal cousin at | | | | | | age 65.Mastectomy of the | | | | | | right breast, March | | | | | | 2006.Last mammogram was | | | | | | performed 1 year and 3 | | | | | | months ago.Reason for | | | | | | exam: history of breast | | | | | | cancer, mastectomy. MA | | | | | | DIGITAL MAMMO DIAG LEFT | | | | | | W/CAD: July 21, 2013 - | | | | | | | | | | | | and MLO view(s) were | | | | | | taken of the left | | | | | | breast.Prior study | | | | | | comparison: May 02, | | | | | | 2011, DIGITAL MAMMO | | | | | | DIAGLEFT performed at | | | | | | [facility] | | | | | | [place]. July | | | | | | , MA DIGITAL MAMMO | | | | | | DIAG LEFT w/CAD | | | | | | performed at | | | | | | [facility] | | | | | | [place].There are | | | | | | scattered fibroglandular | | | | | | densities. The | | | | | | patient isstatus post | | | | | | right mastectomy and | | | | | | left breast mastopexy. | | | | | | On theleft, there are no | | | | | | abnormal calcifications | | | | | | or masses. Mild | | | | | | skinthickening and | | | | | | architectual distortion | | | | | | of the left breast | | | | | | isattributed to | | | | | | masteopexy which is new | | | | | | from the previous exam. | | | | | | The images were obtained | | | | | | using full field | | | | | | digital mammography | | | | | | onthe dedicated Hologic | | | | | | System with R2 CAD. | | | | | | Performed at | | | | | | [facility] | | | | | | [place]. ASSESSMENT: | | | | | | Benign - Category 2 | | | | | | RECOMMENDATION:Diagnosti | | | | | | c mammogram of the left | | | | | | breast in 1 year. | | | | | | Attending Radiologists: | | | | | | CRYSTAL BARBA MDAuthor: | | | | | | MIK SANCHEZ MD I have | | | | | | personally viewed this | | | | | | procedure/exam, reviewed | | | | | | this report, and | | | | | | madechanges to it where | | | | | | appropriate. | | | | | | Final/Electronically | | | | | | signed / CRYSTAL BARBA | | | | | | 07/21/2013 17:24 PM | | | | + + + + + + + + | Specimen | + + | | + + + +---------+ + + | Performing | Address | City/State/Zipcode | Phone Number | | Organization | | | | + +---------+ + + | [facility] | | | | | RADIOLOGY | | | | + +---------+ + + ORDERS OTHER (07/21/2013 12:00 AM PST) + + + | Narrative | Performed At | + + + | | | | | | + + + + + | Procedure Note | + + | Gisele Strong - 08/08/2013 10:01 AM PST | + + documented in this encounter Visit Diagnoses Not on filedocumented in this encounter"
--- OUTSIDE RECORDS SUMMARY | ~2020-05-04 | XMS | Encounter Summary ---
Demographics + + + | Address | [address] | | | [place] [address] | + + + | Home Phone | | + + + | Preferred Language | Unknown | + + + | Marital Status | | + + + | Mandaen Affiliation | CHR | + + + [...] + | Gene Gee | ECON | [address] | | | | | [place], | | | | | [place] [address] | | + + + + + Care Team Providers + +------+ + | Care Automobile Washer Steam Name | Role | Phone | + +------+ + | Alec Hill MD | PCP | | + +------+ + Encounter Details +--------+ + + + + | Date | Type | Department | Care Team | Description | +--------+ + + + + | 02/14/ | Abstract | | | | | 2005 | | | | | +--------+ + + [...]
--- OUTSIDE RECORDS SUMMARY | ~2020-05-04 | XMS | Encounter Summary ---
Demographics + + + | Address | [address] | | | [place] [address] | + + + | Home Phone | | + + + | Preferred Language | Unknown | + + + | Marital Status | | + + + | Faith Affiliation | CHR | + + + | Race | White | + + + | Ethnic Group | Not or | + + + Author + + + | Author | [facility] | + + + | Organization | [facility] | + + + | Address | Unknown | + + + | Phone | Unavailable | + + + Support + + + + + | Name | Relationship | Address | Phone | + + + + + | Gene Gee | ECON | [address] | | | | | [place], | | | | | [place] [address] | | + + + + + Care Team Providers + +------+ + | Care Lunch Cook Name | Role | Phone | + +------+ + | Antony Ribera MD | PCP | | + +------+ + Encounter Details +--------+------+ + + + | Date | Type | Department | Care Team | Description | +--------+------+ + + + | 09/10/ | Lab | Laboratory at [facility] | | Pulmonary | | 2008 | | [address] | | Hypertension (HCC); | | | | [facility] | | Sjogren's Syndrome | | | | Pavilion, 3rd floor | | (HCC) | | | | [place], [place] | | | | | | [address] | | | | | | [phone] | | | +--------+------+ + + + Social History + +-------+ [...] | + +--------+ + + + | APT-CT AB ON HEP 2, | Routin | 09/10/2008 | | Results for this | | SER | e | 9:11 AM | | procedure are in the | | | | PST | | results section. | + +--------+ + + + | CYCLIC CITRUL | Routin | 09/10/2008 | Pulmonary | Results for this | | PEPTIDE AB IGG, | e | 9:11 AM | Hypertension (HCC) | procedure are in the | | SERUM | | PST | Sjogren's Syndrome | results section. | | | | | (HCC) | | + +--------+ + + + | ANTI-DS DNA, SERUM | Routin | 09/10/2008 | Pulmonary | Results for this | | | e | 9:11 AM | Hypertension (HCC) | procedure are in the | | | | PST | Sjogren's Syndrome | results section. | | | | | (HCC) | | + +--------+ + + + | ANTI NUCLEAR AB | Routin | 09/10/2008 | Pulmonary | Results for this | | SCREEN, SERUM | e | 9:11 AM | Hypertension (HCC) | procedure are in the | | | | PST | Sjogren's Syndrome | results section. | | | | | (HCC) | | + +--------+ + + + | RHEUMATOID FACTOR, | Routin | 09/10/2008 | Pulmonary | Results for this | | SERUM | e | 9:11 AM | Hypertension (HCC) | procedure are in the | | | | PST | Sjogren's Syndrome | results section. | | | | | (HCC) | | + +--------+ + + + | KATE ANTIBODIES | Routin | 09/10/2008 | Pulmonary | Results for this | | IDENTIFICATION, | e | 9:11 AM | Hypertension (HCC) | procedure are in the | | SERUM | | PST | Sjogren's Syndrome | results section. | | | | | (HCC) | | + +--------+ + + + | HIV AB/AG SCREENING | Routin | 09/10/2008 | Pulmonary | Results for this | | W/REFLEX TO CONFIRM | e | 9:11 AM | Hypertension (HCC) | procedure are in the | | | | PST | | results section. | + +--------+ + + + | ALPHA 1 ANTITRYPSIN, | Routin | 09/10/2008 | Pulmonary | Results for this | | SERUM | e | 9:11 AM | Hypertension (HCC) | procedure are in the | | | | PST | | results section. | + +--------+ + + + | ANTI NEUTROPHIL | Routin | 09/10/2008 | Pulmonary | Results for this | | CYTOPLASMIC AB SCN, | e | 9:11 AM | Hypertension (HCC) | procedure are in the | | SERUM | | PST | Sjogren's Syndrome | results section. | | | | | (HCC) | | + +--------+ + + + | ALDOLASE, SERUM | Routin | 09/10/2008 | Pulmonary | Results for this | | | e | 9:11 AM | Hypertension (HCC) | procedure are in the | | | | PST | Sjogren's Syndrome | results section. | | | | | (HCC) | | + +--------+ + + + | HEPATITIS B SURFACE | Routin | 09/10/2008 | Pulmonary | Results for this | | AG, SERUM | e | 9:11 AM | Hypertension (HCC) | procedure are in the | | | | PST | | results section. | + +--------+ + + + | HEPATITIS B CORE AB, | Routin | 09/10/2008 | Pulmonary | Results for this | | SERUM | e | 9:11 AM | Hypertension (HCC) | procedure are in the | | | | PST | | results section. | + +--------+ + + + | HEPATITIS C VIRUS | Routin | 09/10/2008 | Pulmonary | Results for this | | W/CONFIRMATION | e | 9:11 AM | Hypertension (HCC) | procedure are in the | | | | PST | | results section. | + +--------+ + + + | CK, PLASMA | Routin | 09/10/2008 | Pulmonary | Results for this | | | e | 9:11 AM | Hypertension (HCC) | procedure are in the | | | | PST | Sjogren's Syndrome | results section. | | | | | (HCC) | | + +--------+ + + + documented in this encounter Results APT-CT AB ON HEP 2, SER (09/10/2008 9:11 AM PST) + + + + + + | Component | Value | Ref Range | Performed | Pathologist | | | | | At | Signature | + + + + + + | CT PATTERN | Speckled, | | | | | | Titer: 1:160 Nucleolar, | | | | | | Titer: 1:160 | | | | + + + + + + + + | Specimen | + + | | + + + + + | Narrative | Performed At | + + + | Test performed by [facility]. | | + + + + + + + + | Performing | Address | City/State/Zipcode | Phone Number | | Organization | | | | + + + + + | [facility] | [address] | [place] [address] | | | LABORATORY | | | | + + + + + CYCLIC CITRUL PEPTIDE AB IGG, SERUM (09/10/2008 9:11 AM PST) + + + + + + | Component | Value | Ref Range | Performed | Pathologist | | | | | At | Signature | + + + + + + | CYCLIC | 2Comment: REFERENCE | <20 Units | | | | CITRUL | INTERVAL: Cyclic | | | | | PEPTIDE AB, | Citrullinated Peptide | | | | | IGG | Ab, IgG Less than 20 | | | | | | Units ...... Negative | | | | | | 20-39 Units | | | | | | ............. Weak | | | | | | Positive 40-59 Units | | | | | | ............. Moderate | | | | | | Positive 60 Units or | | | | | | greater ..... Strong | | | | | | Positive Approximately | | | | | | 70% of patients with RA | | | | | | are positive forCCP IgG, | | | | | | while only 2% of random | | | | | | blood donors and | | | | | | diseasecontrol are | | | | | | positive. The diagnostic | | | | | | value of antibodiesto | | | | | | CCP in juvenile | | | | | | rheumatoid arthritis | | | | | | patients has notbeen | | | | | | determined.Performed by | | | | | | [facility],[address] | | | | | | [address], [facility],[place] | | | | | | [address] | | | | | | [phone].[email or web address]. | | | | | | Mathew robles, | | | | | | MD - Lab. Director | | | | + + + + + + + + | Specimen | + + | Blood - Blood | + + + + + + + | Performing | Address | City/State/Zipcode | Phone Number | | Organization | | | | + + + + + | [facility] | [address] | [place], [place] | | | [facility] | | [address] | | + + + + + ANTI-DS DNA (ITZEL), SERUM (09/10/2008 9:11 AM PST) + + + + + + | Component | Value | Ref Range | Performed | Pathologist | | | | | At | Signature | + + + + + + | DSDNA AB, | None DetectedComment: | (None Detected) | | | | IGG | INTERPRETATION: dsDNA | | | | | | Ab, IgGdsDNA antibodies | | | | | | are screened using an | | | | | | STARLA assay.Positive | | | | | | results are titered by | | | | | | IFA. "None | | | | | | detected"correlates with | | | | | | an IFA titer of less | | | | | | than 1:10.Performed by | | | | | | [facility],[address] | | | | | | [address], [place], [place] | | | | | | [address] | | | | | | [phone].[employer]. | | | | | | travis, Mathew Cade, | | | | | | MD Anne Grier Director | | | | + + + + + + + + | Specimen | + + | Blood - Blood | + + + + + + + | Performing | Address | City/State/Zipcode | Phone Number | | Organization | | | | + + + + + | [facility] | [address] | [place], [place] | | | [facility] | | [address] | | + + + + + HEPATITIS C AB, SERUM (09/10/2008 9:11 AM PST) + + + + + + | Component | Value | Ref Range | Performed | Pathologist | | | | | At | Signature | + + + + + + | HEPATITIS C | Quantity not Sufficient | Negative | | | | AB | for test. | | | | + + + + + + + + | Specimen | + + | Blood - Blood | + + + + + + + | Performing | Address | City/State/Zipcode | Phone Number | | Organization | | | | + + + + + | [facility] | [address] | [place] [address] | | | LABORATORY | | | | + + + + + HEPATITIS B SURFACE AG, SERUM (09/10/2008 9:11 AM PST) + + + + + + | Component | Value | Ref Range | Performed | Pathologist | | | | | At | Signature | + + + + + + | HEPATITIS B | Quantity not Sufficient | Negative | | | | SURFACE | for test. | | | | | AG, SERUM | | | | | + + + + + + + + | Specimen | + + | Blood - Blood | + + + + + + + | Performing | Address | City/State/Zipcode | Phone Number | | Organization | | | | + + + + + | [facility] | [address] | [place] [address] | | | LABORATORY | | | | + + + + + HEPATITIS B CORE AB, SERUM (09/10/2008 9:11 AM PST) + + + + + + | Component | Value | Ref Range | Performed | Pathologist | | | | | At | Signature | + + + + + + | HEPATITIS B | Quantity not Sufficient | Negative | | | | CORE AB, | for test. | | | | | SERUM | | | | | + + + + + + + + | Specimen | + + | Blood - Blood | + + + + + + + | Performing | Address | City/State/Zipcode | Phone Number | | Organization | | | | + + + + + | [facility] | [address] | [place] [address] | | | LABORATORY | | | | + + + + + KATE ANTIBODIES IDENTIFICATION, SERUM (09/10/2008 9:11 AM PST) + + + + + + | Component | Value | Ref Range | Performed | Pathologist | | | | | At | Signature | + + + + + + | SALE PROFESSIONAL DIGITAL MARKETING AB | Negative | Negative | [facility] | | | | | | DEPARTMENT | | | | | | OF | | | | | | PATHOLOGY | | + + + + + + | SM AB | Negative | Negative | [facility] | | | | | | DEPARTMENT | | | | | | OF | | | | | | PATHOLOGY | | + + + + + + | SSA AB | Negative | Negative | [facility] | | | | | | DEPARTMENT | | | | | | OF | | | | | | PATHOLOGY | | + + + + + + | SSB AB | Negative | Negative | [facility] | | | | | | DEPARTMENT | | | | | | OF | | | | | | PATHOLOGY | | + + + + + + | SCL-70 AB | Negative | Negative | [facility] | | | | | | DEPARTMENT | | | | | | OF | | | | | | PATHOLOGY | | + + + + + + | CENTROMERE | Negative | Negative | [facility] | | | AB | | | DEPARTMENT | | | | | | OF | | | | | | PATHOLOGY | | + + + + + + | MELINDA-1 AB | Negative | Negative | [facility] | | | | | | DEPARTMENT | | | | | | OF | | | | | | PATHOLOGY | | + + + + + + + + | Specimen | + + | Blood - Blood | + + + + + | Narrative | Performed At | + + + | KATE Antibody Identification | [facility] | | | DEPARTMENT OF | | | PATHOLOGY | + + + + + + + + | Performing | Address | City/State/Zipcode | Phone Number | | Organization | | | | + + + + + | [facility] | [address] | [place] [address] | | | PATHOLOGY | [address] | | | + + + + + | [facility] | [address] [facility] | [place] [address] | | | PATHOLOGY | [address] | | | + + + + + HIV AB SCREEN, SERUM (09/10/2008 9:11 AM PST) + + + + + + | Component | Value | Ref Range | Performed | Pathologist | | | | | At | Signature | + + + + + + | HIV-1/HIV2 | Non-ReactiveComment: | | [facility] | | | AB SCREEN | Reference Range: | | DEPARTMENT | | | | Non-reactive | | OF | | | | | | PATHOLOGY | | + + + + + + + + | Specimen | + + | Blood - Blood | + + + + + + + | Performing | Address | City/State/Zipcode | Phone Number | | Organization | | | | + + + + + | [facility]MENT OF | [address] | [place] [address] | | | PATHOLOGY | [address] | | | + + + + + | [facility] | [address] | [place] [address] | | | PATHOLOGY | [address] | | | + + + + + ALDOLASE, SERUM (09/10/2008 9:11 AM PST) + + + + + + | Component | Value | Ref Range | Performed | Pathologist | | | | | At | Signature | + + + + + + | ALDOLASE | Quantity not Sufficient | U/L | | | | SERUM | for test. | | | | + + + + + + + + | Specimen | + + | Blood - Blood | + + + + + + + | Performing | Address | City/State/Zipcode | Phone Number | | Organization | | | | + + + + + | [facility] | [address] | [place], [place] | | | [facility] | | [address] | | + + + + + CK, PLASMA (09/10/2008 9:11 AM PST) + +-------+ + + + | Component | Value | Ref Range | Performed | Pathologist | | | | | At | Signature | + +-------+ + + + | CK | 48 | 38 - 234 U/L | [facility] | | | | | | DEPARTMENT | | | | | | OF | | | | | | PATHOLOGY | | + +-------+ + + + + + | Specimen | + + | Blood - Blood | + + + + + + + | Performing | Address | City/State/Zipcode | Phone Number | | Organization | | | | + + + + + | [facility] | [address] | [place] [address] | | | PATHOLOGY | [address] | | | + + + + + | [facility] | [address] | [place] [address] | | | PATHOLOGY | [address] | | | + + + + + ANTI NEUTROPHIL CYTOPLASMIC AB SCN, SERUM (09/10/2008 9:11 AM PST) + + + + + + | Component | Value | Ref Range | Performed | Pathologist | | | | | At | Signature | + + + + + + | ANCA | <1:20Comment: The ANCA | <1:20 | | | | -NEUTROPHIL | IFA is <1:20; therefore, | | | | | | the MPO and PR3 has | | | | | CYTOPLASMIC | notbeen performed.TEST | | | | | IGG, SERUM | INFORMATION: | | | | | | Anti-Neutrophil Cyto Ab, | | | | | | IgGNeutrophil | | | | | | Cytoplasmic Antibodies | | | | | | (C-ANCA = | | | | | | granularcytoplasmic | | | | | | staining, P-ANCA = | | | | | | perinuclear staining) | | | | | | arefound in the serum of | | | | | | over 90% of patients | | | | | | with certainnecrotizing | | | | | | systemic vasculitides, | | | | | | and usually in lessthan | | | | | | 5% of patients with | | | | | | collagen vascular | | | | | | disease orarthritis. | | | | | | | | | | | | ANCA'S IN VASCULITIC | | | | | | SYNDROMES | | | | | | | | | | | | Approx % | | | | | | Approx % of | | | | | | | | | | | | Pos ANCA patients | | | | | | | | | | | | demonstrating | | | | | | | | | | | | | | | | | | | | | | | | (combined patterns) C | | | | | | Pattern P | | | | | | PatternWegener's | | | | | | granulomatosis:-Active | | | | | | Generalized 85 - 92 | | | | | | 85 - 90 | | | | | | 2 - 5-Limited forms | | | | | | 60 - 67 | | | | | | 85 - 90 2 | | | | | | - 5-Inactive | | | | | | 30 - 35 | | | | | | 85 - 90 2 | | | | | | - 5Idiopathic | | | | | | CrescenticGlomerulonephr | | | | | | itis 80 | | | | | | some* | | | | | | majority*Polyarteritis | | | | | | Nodosa 50 | | | | | | 86 | | | | | | 14Churg - Roverto | | | | | | 50 | | | | | | 80 | | | | | | 20SLE | | | | | | less than 10 | | | | | | 0 greater than | | | | | | 90Rheumatoid Arthritis | | | | | | less than 5 0 | | | | | | greater than | | | | | | 90Sjogren's Syndrome | | | | | | 25 | | | | | | 0 greater than | | | | | | 90 | | | | | | | | | | | | *No | | | | | | quantitation in the | | | | | | literature. | | | | + + + + + + | MYELOPEROXI | TNP | AU/mL | | | | DASE ABS | | | | | + + + + + + | SERINE | TNPComment: Performed by | AU/mL | | | | PROTEASE 3 | [facility] | | | | | | [address], [place], [place] | | | | | | [address] | | | | | | [phone].[employer]ab. | | | | | | Mathew robles, | | | | | | MD Anne Herring. Director | | | | + + + + + + + + | Specimen | + + | Blood - Blood | + + + + + + + | Performing | Address | City/State/Zipcode | Phone Number | | Organization | | | | + + + + + | [facility] | [address] | [place], [place] | | | [facility] | | [address] | | + + + + + RHEUMATOID FACTOR, SERUM (09/10/2008 9:11 AM PST) + +-------+ + + + | Component | Value | Ref Range | Performed | Pathologist | | | | | At | Signature | + +-------+ + + + | RHEUMATOID | 7 | <15 IU/mL | | | | FACTOR | | | | | + +-------+ + + + + + | Specimen | + + | Blood - Blood | + + + + + | Narrative | Performed At | + + + | Reference Range Change effective 08/11/08 | | | [facility]) [facility] | | | [place] [address] [address] [facility], | | | [place] [address] | | + + + + + + + + | Performing | Address | City/State/Zipcode | Phone Number | | Organization | | | | + + + + + | [facility] | [address] | [place] [address] | | | LABORATORY | | | | + + + + + ANTI NUCLEAR AB SCREEN, SERUM (09/10/2008 9:11 AM PST) + + + + + + | Component | Value | Ref Range | Performed | Pathologist | | | | | At | Signature | + + + + + + | CT SCREEN | POSITIVE | Negative | | | | ON HEP | | | | | | 2,SERUM | | | | | + + + + + + + + | Specimen | + + | Blood - Blood | + + + + + | Narrative | Performed At | + + + | Test performed by [facility]. | | + + + + + + + + | Performing | Address | City/State/Zipcode | Phone Number | | Organization | | | | + + + + + | [facility] | [address] | [place] [address] | | | LABORATORY | | | | + + + + + ALPHA 1 ANTITRYPSIN, SERUM (09/10/2008 9:11 AM PST) + + + + + + | Component | Value | Ref Range | Performed | Pathologist | | | | | At | Signature | + + + + + + | ALPHA 1 | Quantity not Sufficient | 100 - 200 mg/dL | | | | ANTITRY SER | for test. | | | | + + + + + + + + | Specimen | + + | Blood - Blood | + + + + + + + | Performing | Address | City/State/Zipcode | Phone Number | | Organization | | | | + + + + + | [facility] | [address] | [place], [place] | | | [facility] | | [id number] | | + + + + + documented in this encounter Visit Diagnoses + + | Diagnosis | + + | Pulmonary hypertension (HCC) Other chronic pulmonary heart diseases | + + | Sjogren's syndrome (HCC) Sicca syndrome | + + documented in this encounter
--- OUTSIDE RECORDS SUMMARY | ~2020-05-04 | XMS | Encounter Summary ---
Demographics + + + | Address | [address] | | | [place] [address] | + + + | Home Phone | | + + + | Preferred Language | Unknown | + + + | Marital Status | | + + + | Gnosticism Affiliation | CHR | + + + | Race | White | + + + | Ethnic Group | Not or | + + + Author + + + | Author | [facility] | + + + | Organization | [facility] | + + + | Address | Unknown | + + + | Phone | Unavailable | + + + Support + + + + + | Name | Relationship | Address | Phone | + + + + + | Gene Sahil | ECON | [address] | | | | | [place], | | | | | [place] [address] | | + + + + + Care Team Providers + +------+ + | Care Real Estate Assessor Name | Role | Phone | + +------+ + | Antony Ribera MD | PCP | | + +------+ + Encounter Details +--------+ + + + + | Date | Type | Department | Care Team | Description | +--------+ + + + + | 03/19/ | Procedure - | UNKNOWN DEPARTMENT | Record, Operation | Operative Report | | 2006 | | [address] | | | | | Transcribed | [address] | | | | | | [place], [place] | | | | | | [address] | | | +--------+ + + + [...] documented as of this encounter Procedure Notes Record, Operation - 03/19/2007 12:00 AM PDTAssociated Order(s): OPERATION RECORD [id number] SAHIL Holman [id number] Date: 03/19/2007 Attending Surgeon: Henri Heart M.D. Bridge Leverman(s): Andrzej Trimble M.D. Preoperative Diagnosis(es): Right breast carcinoma. Postoperative Diagnosis(es): Right breast carcinoma. Procedures Performed: Right axillary sentinel lymph node biopsy and right total mastectomy. Anesthesia: General. Specimens: 1. Right axillary sentinel lymph node. 2. Right total mastectomy silk-marked axillary tail. Indications: The patient is a 61-year-old woman who had an abnormal mammogram of the right breast. She had a core needle biopsy that showed invasive ductal carcinoma, grade 1. She had her options for treatment discussed, but because she has Sjogren syndrome, breast preservation therapy is contraindicated, and mastectomy was indicated. She declined breast reconstruction. She was taken to the operating room today for a right axillary sentinel lymph node biopsy, possible axillary dissection, and a right total mastectomy. Findings at Operation: There was a single lymph node that had a count of 19,535 within the right axilla. Following this, the background count was 734. Frozen section diagnosis on the sentinel node was negative for malignancy. No gross tumor was encountered during the operation. Procedure: The patient was identified, taken to the operating room, and placed on the operating table in supine position. General anesthetic was induced, and the right breast, right axilla, and right upper extremity were prepared and draped in sterile fashion. A sentinel node biopsy was performed first. A curvilinear incision was designed in the right axilla coming from the anterior to the posterior axillary lines just below the axillary hairline. The midportion of this curve was closest to the 2 villanueva placed by Nuclear Medicine to localize the sentinel node, and therefore, this was used to approach the sentinel node. Skin incision was made. Dissection was carried into the subcutaneous tissue and into the superficial axillary fascia, and the axilla proper was entered. The C-Trak was brought onto the field, and the sentinel node was localized. This was dissected out with clips and 3-0 silk suture ties. The sentinel node had a count as mentioned above. The background count after the explantation of this node was as shown above, and therefore, this was declared to be Z sentinel node. This node was sent for frozen section. Skin incision was closed with running 3-0 subcutaneous suture followed by a running 4-0 Biosyn subcuticular suture. Frozen section diagnosis on the sentinel node was returned as negative for malignancy; therefore, a total right mastectomy was performed. A transverse oblique skin ellipse was designed around the nipple-areolar complex. Skin incisions were made. Dissection was carried into the plane between Monster's ligaments and the superficial subcutaneous tissue. The flaps were then dissected in all directions in this plane. The boundaries of the flaps were the points in which this plane met the pectoralis fascia superiorly, the sternal border medially, the rectus abdominis fascia inferiorly, and the lateral border of the latissimus dorsi muscle laterally. The breast was then taken off the chest wall beginning from superior to inferior and from medial to lateral. The breast was taken off the rectus abdominis fascia, the serratus anterior, and then the latissimus dorsi. The tail of the breast was taken out of the axilla. We entered the cavity, at which point, we had obtained our sentinel node. The tail of the breast was amputated off the axillary fat. The specimen was delivered from the wound and was marked for the pathology by placing a black silk stitch on the axillary tail. Bleeding was controlled throughout with electrocautery. The internal mammary vessels were suture ligated at the third, fourth, and fifth intercostal spaces. A 10 mm TIMOTHY drain was placed in the gutter of the inferior mastectomy flap and brought out through a stab wound in the midaxillary line. The drain was secured to the skin with 3-0 nylon suture. The skin flaps were then reapproximated with interrupted 3-0 Vicryl deep dermal sutures followed by a running 4-0 Biosyn subcuticular sutures. ABDs and Surgi-Bra were applied as dressing. Estimated blood loss was 100 cc. There were no complications. She tolerated the procedure well. The breast was sent to Pathology. Henri Heart M.D. / FRANCA [id number] / [id number] / [id number] / Electronically signed by Henri Heart 06-12-2007 11:40:00 AM documented in this encou nter Plan of Treatment Not on filedocumented as of this encounter Procedures + +--------+ + + + | Procedure Name | Priori | Date/Time | Associated Diagnosis | Comments | | | ty | | | | + +--------+ + + + | OPERATION RECORD | | 03/19/2007 | | Results for this | | | | 12:00 AM | | procedure are in the | | | | PDT | | results section. | + +--------+ + + + documented in this encounter Results OPERATION RECORD (03/19/2007 12:00 AM PDT) + + | Procedure Note | + + | 03/19/2007 12:00 AM PDT | | [id number] | | [id number] [facility] [id number] | | | | Date: 03/19/2007 | | | | Attending Surgeon: Henri Heart M.D. | | | | | | Bridge Leverman(s): Andrzej Trimble M.D. | | | | Preoperative Diagnosis(es): | | Right breast carcinoma. | | | | Postoperative Diagnosis(es): | | Right breast carcinoma. | | | | Procedures Performed: | | Right axillary sentinel lymph node biopsy and right total mastectomy. | | | | Anesthesia: | | General. | | | | Specimens: | | 1. Right axillary sentinel lymph node. | | 2. Right total mastectomy silk-marked axillary tail. | | | | | | Indications: | | The patient is a 61-year-old woman who had an abnormal mammogram of the | | right breast. She had a core needle biopsy that showed invasive ductal | | carcinoma, grade 1. She had her options for treatment discussed, but | | because she has Sjogren syndrome, breast preservation therapy is | | contraindicated, and mastectomy was indicated. She declined breast | | reconstruction. She was taken to the operating room today for a right | | axillary sentinel lymph node biopsy, possible axillary dissection, and a | | right total mastectomy. | | | | Findings at Operation: | | There was a single lymph node that had a count of 19,535 within the right | | axilla. Following this, the background count was 734. Frozen section | | diagnosis on the sentinel node was negative for malignancy. No gross tumor | | was encountered during the operation. | | | | Procedure: | | The patient was identified, taken to the operating room, and placed on the | | operating table in supine position. General anesthetic was induced, and | | the right breast, right axilla, and right upper extremity were prepared and | | draped in sterile fashion. | | | | A sentinel node biopsy was performed first. A curvilinear incision was | | designed in the right axilla coming from the anterior to the posterior | | axillary lines just below the axillary hairline. The midportion of this | | curve was closest to the 2 villanueva placed by Nuclear Medicine to localize the | | sentinel node, and therefore, this was used to approach the sentinel node. | | Skin incision was made. Dissection was carried into the subcutaneous | | tissue and into the superficial axillary fascia, and the axilla proper was | | entered. The C-Trak was brought onto the field, and the sentinel node was | | localized. This was dissected out with clips and 3-0 silk suture ties. | | The sentinel node had a count as mentioned above. The background count | | after the explantation of this node was as shown above, and therefore, this | | was declared to be Z sentinel node. This node was sent for frozen section. | | Skin incision was closed with running 3-0 subcutaneous suture followed by a | | running 4-0 Biosyn subcuticular suture. Frozen section diagnosis on the | | sentinel node was returned as negative for malignancy; therefore, a total | | right mastectomy was performed. A transverse oblique skin ellipse was | | designed around the nipple-areolar complex. Skin incisions were made. | | Dissection was carried into the plane between Monster's ligaments and the | | superficial subcutaneous tissue. The flaps were then dissected in all | | directions in this plane. The boundaries of the flaps were the points in | | which this plane met the pectoralis fascia superiorly, the sternal border | | medially, the rectus abdominis fascia inferiorly, and the lateral border of | | the latissimus dorsi muscle laterally. The breast was then taken off the | | chest wall beginning from superior to inferior and from medial to lateral. | | The breast was taken off the rectus abdominis fascia, the serratus | | anterior, and then the latissimus dorsi. The tail of the breast was taken | | out of the axilla. We entered the cavity, at which point, we had obtained | | our sentinel node. The tail of the breast was amputated off the axillary | | fat. The specimen was delivered from the wound and was marked for the | | pathology by placing a black silk stitch on the axillary tail. Bleeding | | was controlled throughout with electrocautery. The internal mammary | | vessels were suture ligated at the third, fourth, and fifth intercostal | | spaces. A 10 mm TIMOTHY drain was placed in the gutter of the inferior | | mastectomy flap and brought out through a stab wound in the midaxillary | | line. The drain was secured to the skin with 3-0 nylon suture. The skin | | flaps were then reapproximated with interrupted 3-0 Vicryl deep dermal | | sutures followed by a running 4-0 Biosyn subcuticular sutures. ABDs and | | Surgi-Bra were applied as dressing. Estimated blood loss was 100 cc. | | There were no complications. She tolerated the procedure well. The breast | | was sent to Pathology. | | | | | | | | | | Henri Heart M.D. | | | | RP / HS | | [id number] / [id number] / [id number] / | | | | | | | | | | | | Electronically signed by Henri Heart 06-12-2007 11:40:00 AM | | | | | + + documented in this encounter Visit Diagnoses Not on filedocumented in this encounter"
--- OUTSIDE RECORDS SUMMARY | ~2020-05-04 | XMS | Encounter Summary ---
Demographics + + + | Address | [address] | | | [place] [address] | + + + | Home Phone | | + + + | Preferred Language | Unknown | + + + | Marital Status | | + + + | Restorationist Affiliation | CHR | + + + | Race | White | + + + | Ethnic Group | Not or | + + + Author + + + | Author | [facility] | + + + | Organization | [facility] | + + + | Address | Unknown | + + + | Phone | Unavailable | + + + Support + + + + + | Name | Relationship | Address | Phone | + + + + + | Gene Gee | ECON | [address] | | | | | [place], | | | | | [place] [address] | | + + + + + Care Team Providers + +------+ + | Care Commissioned Sales Associate Name | Role | Phone | + +------+ + | Alec Hill MD | PCP | | + +------+ + Encounter Details +--------+ + + + + | Date | Type | Department | Care Team | Description | +--------+ + + + + | 07/17/ | Hospital | Registration 3181 | Katie Callahan MD | | | 2004 | Activity | [address] | [address] | | | | | Driss Mailcode: [id number] | [address] [place], | | | | | [place], [place] | [place] [address] | | | | | [address] | [phone] | | | | | [phone] | | | +--------+ + + + [...] | + +--------+ + + + | COMPLETE METABOLIC | Routin | 07/22/2004 | | Results for this | | SET | e | 6:45 AM | | procedure are in the | | (NA,K,CL,CO2,BUN,CRE | | PST | | results section. | | AT,GLUC,CA,AST,ALT,B | | | | | | DANICA TOTAL,ALK | | | | | | PHOS,ALB,PROT TOTAL) | | | | | + +--------+ + + + | COMPLETE METABOLIC | Routin | 07/21/2004 | | Results for this | | SET | e | 7:00 AM | | procedure are in the | | (NA,K,CL,CO2,BUN,CRE | | PST | | results section. | | AT,GLUC,CA,AST,ALT,B | | | | | | DANICA TOTAL,ALK | | | | | | PHOS,ALB,PROT TOTAL) | | | | | + +--------+ + + + | COMPLETE METABOLIC | Routin | 07/20/2004 | | Results for this | | SET | e | 6:30 AM | | procedure are in the | | (NA,K,CL,CO2,BUN,CRE | | PST | | results section. | | AT,GLUC,CA,AST,ALT,B | | | | | | DANICA TOTAL,ALK | | | | | | PHOS,ALB,PROT TOTAL) | | | | | + +--------+ + + + | COMPLETE METABOLIC | Routin | 07/19/2004 | | Results for this | | SET | e | 6:32 AM | | procedure are in the | | (NA,K,CL,CO2,BUN,CRE | | PST | | results section. | | AT,GLUC,CA,AST,ALT,B | | | | | | DANICA TOTAL,ALK | | | | | | PHOS,ALB,PROT TOTAL) | | | | | + +--------+ + + + | TROPONIN I, PLASMA | Routin | 07/18/2004 | | Results for this | | | e | 9:20 AM | | procedure are in the | | | | PST | | results section. | + +--------+ + + + | COMPLETE METABOLIC | Routin | 07/18/2004 | | Results for this | | SET | e | 9:20 AM | | procedure are in the | | (NA,K,CL,CO2,BUN,CRE | | PST | | results section. | | AT,GLUC,CA,AST,ALT,B | | | | | | DANICA TOTAL,ALK | | | | | | PHOS,ALB,PROT TOTAL) | | | | | + +--------+ + + + | CBC ONLY | Routin | 07/18/2004 | | Results for this | | | e | 9:20 AM | | procedure are in the | | | | PST | | results section. | + +--------+ + + + | X-RAY ABD ACUTE 3 | Routin | 07/18/2004 | | Results for this | | VIEWS (2 V ABD & 1 V | e | 8:02 AM | | procedure are in the | | CXR) | | PST | | results section. | + +--------+ + + + | TROPONIN I, PLASMA | Routin | 07/18/2004 | | Results for this | | | e | 12:15 AM | | procedure are in the | | | | PST | | results section. | + +--------+ + + + documented in this encounter Results COMP METABOLIC SET (07/22/2004 6:45 AM PST) + +--------+ + + + | Component | Value | Ref Range | Performed | Pathologist | | | | | At | Signature | + +--------+ + + + | GLUCOSE, | 95 | 65 - 110 mg/dL | [facility] | | | PLASMA | | | DEPARTMENT | | | (LAB) | | | OF | | | | | | PATHOLOGY | | + +--------+ + + + | BUN, PLASMA | 2 (L) | 6 - 20 mg/dL | [facility] | | | (LAB) | | | DEPARTMENT | | | | | | OF | | | | | | PATHOLOGY | | + +--------+ + + + | CREATININE | 0.7 | 0.6 - 1.1 mg/dL | [facility] | | | PLASMA | | | DEPARTMENT | | | (LAB) | | | OF | | | | | | PATHOLOGY | | + +--------+ + + + | TOTAL | 7.0 | 6.1 - 7.9 g/dL | [facility] | | | PROTEIN, | | | DEPARTMENT | | | PLASMA | | | OF | | | (LAB) | | | PATHOLOGY | | + +--------+ + + + | ALBUMIN, | 3.5 | 3.5 - 4.7 g/dL | [facility] | | | PLASMA | | | DEPARTMENT | | | (LAB) | | | OF | | | | | | PATHOLOGY | | + +--------+ + + + | CALCIUM, | 9.4 | 8.5 - 10.5 | [facility] | | | PLASMA | | mg/dL | DEPARTMENT | | | (LAB) | | | OF | | | | | | PATHOLOGY | | + +--------+ + + + | BILIRUBIN | 0.7 | 0.3 - 1.2 mg/dL | [facility] | | | TOTAL | | | DEPARTMENT | | | | | | OF | | | | | | PATHOLOGY | | + +--------+ + + + | ALK PHOS | 100 | 53 - 141 U/L | [facility] | | | | | | DEPARTMENT | | | | | | OF | | | | | | PATHOLOGY | | + +--------+ + + + | AST(SGOT) | 26 | 15 - 41 U/L | [facility] | | | | | | DEPARTMENT | | | | | | OF | | | | | | PATHOLOGY | | + +--------+ + + + | SODIUM, | 138 | 136 - 145 | [facility] | | | PLASMA | | mmol/L | DEPARTMENT | | | (LAB) | | | OF | | | | | | PATHOLOGY | | + +--------+ + + + | POTASSIUM, | 4.0 | 3.5 - 5.1 | [facility] | | | PLASMA | | mmol/L | DEPARTMENT | | | (LAB) | | | OF | | | | | | PATHOLOGY | | + +--------+ + + + | CHLORIDE, | 106 | 98 - 107 mmol/L | [facility] | | | PLASMA | | | DEPARTMENT | | | (LAB) | | | OF | | | | | | PATHOLOGY | | + +--------+ + + + | TOTAL CO2, | 22 (L) | 23 - 29 mmol/L | [facility] | | | PLASMA | | | DEPARTMENT | | | (LAB) | | | OF | | | | | | PATHOLOGY | | + +--------+ + + + | ALT (SGPT) | 31 | 13 - 48 U/L | [facility] | | | | | | DEPARTMENT | | | | | | OF | | | | | | PATHOLOGY | | + +--------+ + + + + + | Specimen | + + | | + + + + + + + | Performing | Address | City/State/Zipcode | Phone Number | | Organization | | | | + + + + + | [facility] DEPARTMENT | [facility] [facility] | [place] [address] | | | PATHOLOGY | [address] | | | + + + + + | [facility] | [address] [place] [address] | [place] [address] | | | PATHOLOGY | [address] | | | + + + + + COMP METABOLIC SET (07/21/2004 7:00 AM PST) + +---------+ + + + | Component | Value | Ref Range | Performed | Pathologist | | | | | At | Signature | + +---------+ + + + | GLUCOSE, | 126 (H) | 65 - 110 mg/dL | [facility] | | | PLASMA | | | DEPARTMENT | | | (LAB) | | | OF | | | | | | PATHOLOGY | | + +---------+ + + + | BUN, PLASMA | 3 (L) | 6 - 20 mg/dL | [facility] | | | (LAB) | | | DEPARTMENT | | | | | | OF | | | | | | PATHOLOGY | | + +---------+ + + + | CREATININE | 0.6 | 0.6 - 1.1 mg/dL | [facility] | | | PLASMA | | | DEPARTMENT | | | (LAB) | | | OF | | | | | | PATHOLOGY | | + +---------+ + + + | TOTAL | 6.3 | 6.1 - 7.9 g/dL | [facility] | | | PROTEIN, | | | DEPARTMENT | | | PLASMA | | | OF | | | (LAB) | | | PATHOLOGY | | + +---------+ + + + | ALBUMIN, | 2.9 (L) | 3.5 - 4.7 g/dL | [facility] | | | PLASMA | | | DEPARTMENT | | | (LAB) | | | OF | | | | | | PATHOLOGY | | + +---------+ + + + | CALCIUM, | 8.8 | 8.5 - 10.5 | [facility] | | | PLASMA | | mg/dL | DEPARTMENT | | | (LAB) | | | OF | | | | | | PATHOLOGY | | + +---------+ + + + | BILIRUBIN | 0.8 | 0.3 - 1.2 mg/dL | [facility] | | | TOTAL | | | DEPARTMENT | | | | | | OF | | | | | | PATHOLOGY | | + +---------+ + + + | ALK PHOS | 94 | 53 - 141 U/L | [facility] | | | | | | DEPARTMENT | | | | | | OF | | | | | | PATHOLOGY | | + +---------+ + + + | AST(SGOT) | 21 | 15 - 41 U/L | [facility] | | | | | | DEPARTMENT | | | | | | OF | | | | | | PATHOLOGY | | + +---------+ + + + | SODIUM, | 136 | 136 - 145 | [facility] | | | PLASMA | | mmol/L | DEPARTMENT | | | (LAB) | | | OF | | | | | | PATHOLOGY | | + +---------+ + + + | POTASSIUM, | 3.4 (L) | 3.5 - 5.1 | [facility] | | | PLASMA | | mmol/L | DEPARTMENT | | | (LAB) | | | OF | | | | | | PATHOLOGY | | + +---------+ + + + | CHLORIDE, | 107 | 98 - 107 mmol/L | [facility] | | | PLASMA | | | DEPARTMENT | | | (LAB) | | | OF | | | | | | PATHOLOGY | | + +---------+ + + + | TOTAL CO2, | 27 | 23 - 29 mmol/L | [facility] | | | PLASMA | | | DEPARTMENT | | | (LAB) | | | OF | | | | | | PATHOLOGY | | + +---------+ + + + | ALT (SGPT) | 25 | 13 - 48 U/L | [facility] | | | | | | DEPARTMENT | | | | | | OF | | | | | | PATHOLOGY | | + +---------+ + + + + + | Specimen | + + | | + + + + + + + | Performing | Address | City/State/Zipcode | Phone Number | | Organization | | | | + + + + + | [facility] DEPARTMENT OF | [address] | [place] [address] | | | PATHOLOGY | [address] | | | + + + + + | [facility] DEPARTMENT | [address] | [place] [address] | | | PATHOLOGY | [address] | | | + + + + + COMP METABOLIC SET (07/20/2004 6:30 AM PST) + +---------+ + + + | Component | Value | Ref Range | Performed | Pathologist | | | | | At | Signature | + +---------+ + + + | GLUCOSE, | 129 (H) | 65 - 110 mg/dL | [facility] | | | PLASMA | | | DEPARTMENT | | | (LAB) | | | OF | | | | | | PATHOLOGY | | + +---------+ + + + | BUN, PLASMA | 10 | 6 - 20 mg/dL | [facility] | | | (LAB) | | | DEPARTMENT | | | | | | OF | | | | | | PATHOLOGY | | + +---------+ + + + | CREATININE | 0.7 | 0.6 - 1.1 mg/dL | [facility] | | | PLASMA | | | DEPARTMENT | | | (LAB) | | | OF | | | | | | PATHOLOGY | | + +---------+ + + + | TOTAL | 6.2 | 6.1 - 7.9 g/dL | [facility] | | | PROTEIN, | | | DEPARTMENT | | | PLASMA | | | OF | | | (LAB) | | | PATHOLOGY | | + +---------+ + + + | ALBUMIN, | 2.8 (L) | 3.5 - 4.7 g/dL | [facility] | | | PLASMA | | | DEPARTMENT | | | (LAB) | | | OF | | | | | | PATHOLOGY | | + +---------+ + + + | CALCIUM, | 8.4 (L) | 8.5 - 10.5 | [facility] | | | PLASMA | | mg/dL | DEPARTMENT | | | (LAB) | | | OF | | | | | | PATHOLOGY | | + +---------+ + + + | BILIRUBIN | 0.9 | 0.3 - 1.2 mg/dL | [facility] | | | TOTAL | | | DEPARTMENT | | | | | | OF | | | | | | PATHOLOGY | | + +---------+ + + + | ALK PHOS | 98 | 53 - 141 U/L | [facility] | | | | | | DEPARTMENT | | | | | | OF | | | | | | PATHOLOGY | | + +---------+ + + + | AST(SGOT) | 24 | 15 - 41 U/L | [facility] | | | | | | DEPARTMENT | | | | | | OF | | | | | | PATHOLOGY | | + +---------+ + + + | SODIUM, | 136 | 136 - 145 | [facility] | | | PLASMA | | mmol/L | DEPARTMENT | | | (LAB) | | | OF | | | | | | PATHOLOGY | | + +---------+ + + + | POTASSIUM, | 3.5 | 3.5 - 5.1 | [facility] | | | PLASMA | | mmol/L | DEPARTMENT | | | (LAB) | | | OF | | | | | | PATHOLOGY | | + +---------+ + + + | CHLORIDE, | 101 | 98 - 107 mmol/L | [facility] | | | PLASMA | | | DEPARTMENT | | | (LAB) | | | OF | | | | | | PATHOLOGY | | + +---------+ + + + | TOTAL CO2, | 24 | 23 - 29 mmol/L | [facility] | | | PLASMA | | | DEPARTMENT | | | (LAB) | | | OF | | | | | | PATHOLOGY | | + +---------+ + + + | ALT (SGPT) | 28 | 13 - 48 U/L | [facility] | | | | | | DEPARTMENT | | | | | | OF | | | | | | PATHOLOGY | | + +---------+ + + + + + | Specimen | + + | | + + + + + + + | Performing | Address | City/State/Zipcode | Phone Number | | Organization | | | | + + + + + | [facility] | [address] [facility] | [place] [address] | | | PATHOLOGY | [address] | | | + + + + + | [facility] | [address] [place] [address] | [place] [address] | | | PATHOLOGY | [address] | | | + + + + + COMP METABOLIC SET (07/19/2004 6:32 AM PST) + +---------+ + + + | Component | Value | Ref Range | Performed | Pathologist | | | | | At | Signature | + +---------+ + + + | GLUCOSE, | 99 | 65 - 110 mg/dL | [facility] | | | PLASMA | | | DEPARTMENT | | | (LAB) | | | OF | | | | | | PATHOLOGY | | + +---------+ + + + | BUN, PLASMA | 7 | 6 - 20 mg/dL | [facility] | | | (LAB) | | | DEPARTMENT | | | | | | OF | | | | | | PATHOLOGY | | + +---------+ + + + | CREATININE | 0.8 | 0.6 - 1.1 mg/dL | [facility] | | | PLASMA | | | DEPARTMENT | | | (LAB) | | | OF | | | | | | PATHOLOGY | | + +---------+ + + + | TOTAL | 6.0 (L) | 6.1 - 7.9 g/dL | [facility] | | | PROTEIN, | | | DEPARTMENT | | | PLASMA | | | OF | | | (LAB) | | | PATHOLOGY | | + +---------+ + + + | ALBUMIN, | 2.6 (L) | 3.5 - 4.7 g/dL | [facility] | | | PLASMA | | | DEPARTMENT | | | (LAB) | | | OF | | | | | | PATHOLOGY | | + +---------+ + + + | CALCIUM, | 8.7 | 8.5 - 10.5 | [facility] | | | PLASMA | | mg/dL | DEPARTMENT | | | (LAB) | | | OF | | | | | | PATHOLOGY | | + +---------+ + + + | BILIRUBIN | 0.8 | 0.3 - 1.2 mg/dL | [facility] | | | TOTAL | | | DEPARTMENT | | | | | | OF | | | | | | PATHOLOGY | | + +---------+ + + + | ALK PHOS | 98 | 53 - 141 U/L | [facility] | | | | | | DEPARTMENT | | | | | | OF | | | | | | PATHOLOGY | | + +---------+ + + + | AST(SGOT) | 26 | 15 - 41 U/L | [facility] | | | | | | DEPARTMENT | | | | | | OF | | | | | | PATHOLOGY | | + +---------+ + + + | SODIUM, | 135 (L) | 136 - 145 | [facility] | | | PLASMA | | mmol/L | DEPARTMENT | | | (LAB) | | | OF | | | | | | PATHOLOGY | | + +---------+ + + + | POTASSIUM, | 3.8 | 3.5 - 5.1 | [facility] | | | PLASMA | | mmol/L | DEPARTMENT | | | (LAB) | | | OF | | | | | | PATHOLOGY | | + +---------+ + + + | CHLORIDE, | 102 | 98 - 107 mmol/L | [facility] | | | PLASMA | | | DEPARTMENT | | | (LAB) | | | OF | | | | | | PATHOLOGY | | + +---------+ + + + | TOTAL CO2, | 28 | 23 - 29 mmol/L | [facility] | | | PLASMA | | | DEPARTMENT | | | (LAB) | | | OF | | | | | | PATHOLOGY | | + +---------+ + + + | ALT (SGPT) | 28 | 13 - 48 U/L | [facility] | | | | | | DEPARTMENT | | | | | | OF | | | | | | PATHOLOGY | | + +---------+ + + + + + | Specimen | + + | | + + + + + + + | Performing | Address | City/State/Zipcode | Phone Number | | Organization | | | | + + + + + | [facility] DEPARTMENT OF | [address] | [place] [address] | | | PATHOLOGY | [address] | | | + + + + + | [facility] DEPARTMENT OF | [address] | [place] [address] | | | PATHOLOGY | [address] | | | + + + + + CBC ONLY WITH PLATELET (07/18/2004 9:20 AM PST) + +---------+ + + + | Component | Value | Ref Range | Performed | Pathologist | | | | | At | Signature | + +---------+ + + + | WHITE CELL | 7.6 | 4.4 - 11.0 K/cu | [facility] | | | COUNT | | mm | DEPARTMENT | | | | | | OF | | | | | | PATHOLOGY | | + +---------+ + + + | RED CELL | 4.31 | 3.65 - 5.10 | [facility] | | | COUNT | | M/cu mm | DEPARTMENT | | | | | | OF | | | | | | PATHOLOGY | | + +---------+ + + + | HEMOGLOBIN | 12.5 | 11.4 - 15.0 | [facility] | | | | | g/dL | DEPARTMENT | | | | | | OF | | | | | | PATHOLOGY | | + +---------+ + + + | HEMATOCRIT | 37.0 | 33.0 - 44.6 % | [facility] | | | | | | DEPARTMENT | | | | | | OF | | | | | | PATHOLOGY | | + +---------+ + + + | MCV | 85.7 | 80.0 - 96.0 fL | [facility] | | | | | | DEPARTMENT | | | | | | OF | | | | | | PATHOLOGY | | + +---------+ + + + | MCHC | 33.7 | 33.4 - 35.5 | [facility] | | | | | g/dL | DEPARTMENT | | | | | | OF | | | | | | PATHOLOGY | | + +---------+ + + + | PLATELET | 430 (H) | 150 - 400 K/cu | [facility] | | | COUNT | | mm | DEPARTMENT | | | | | | OF | | | | | | PATHOLOGY | | + +---------+ + + + + + | Specimen | + + | | + + + + + + + | Performing | Address | City/State/Zipcode | Phone Number | | Organization | | | | + + + + + | [facility] DEPARTMENT OF | [address] | [place] [address] | | | PATHOLOGY | [address] | | | + + + + + | [facility] DEPARTMENT | [address] | [place] [address] | | | PATHOLOGY | [address] | | | + + + + + COMP METABOLIC SET (07/18/2004 9:20 AM PST) + +---------+ + + + | Component | Value | Ref Range | Performed | Pathologist | | | | | At | Signature | + +---------+ + + + | GLUCOSE, | 97 | 65 - 110 mg/dL | [facility] | | | PLASMA | | | DEPARTMENT | | | (LAB) | | | OF | | | | | | PATHOLOGY | | + +---------+ + + + | BUN, PLASMA | 3 (L) | 6 - 20 mg/dL | [facility] | | | (LAB) | | | DEPARTMENT | | | | | | OF | | | | | | PATHOLOGY | | + +---------+ + + + | CREATININE | 0.6 | 0.6 - 1.1 mg/dL | [facility] | | | PLASMA | | | DEPARTMENT | | | (LAB) | | | OF | | | | | | PATHOLOGY | | + +---------+ + + + | TOTAL | 6.1 | 6.1 - 7.9 g/dL | [facility] | | | PROTEIN, | | | DEPARTMENT | | | PLASMA | | | OF | | | (LAB) | | | PATHOLOGY | | + +---------+ + + + | ALBUMIN, | 2.7 (L) | 3.5 - 4.7 g/dL | [facility] | | | PLASMA | | | DEPARTMENT | | | (LAB) | | | OF | | | | | | PATHOLOGY | | + +---------+ + + + | CALCIUM, | 8.9 | 8.5 - 10.5 | [facility] | | | PLASMA | | mg/dL | DEPARTMENT | | | (LAB) | | | OF | | | | | | PATHOLOGY | | + +---------+ + + + | BILIRUBIN | 0.7 | 0.3 - 1.2 mg/dL | [facility] | | | TOTAL | | | DEPARTMENT | | | | | | OF | | | | | | PATHOLOGY | | + +---------+ + + + | ALK PHOS | 102 | 53 - 141 U/L | [facility] | | | | | | DEPARTMENT | | | | | | OF | | | | | | PATHOLOGY | | + +---------+ + + + | AST(SGOT) | 25 | 15 - 41 U/L | [facility] | | | | | | DEPARTMENT | | | | | | OF | | | | | | PATHOLOGY | | + +---------+ + + + | SODIUM, | 135 (L) | 136 - 145 | [facility] | | | PLASMA | | mmol/L | DEPARTMENT | | | (LAB) | | | OF | | | | | | PATHOLOGY | | + +---------+ + + + | POTASSIUM, | 3.9 | 3.5 - 5.1 | [facility] | | | PLASMA | | mmol/L | DEPARTMENT | | | (LAB) | | | OF | | | | | | PATHOLOGY | | + +---------+ + + + | CHLORIDE, | 102 | 98 - 107 mmol/L | [facility] | | | PLASMA | | | DEPARTMENT | | | (LAB) | | | OF | | | | | | PATHOLOGY | | + +---------+ + + + | TOTAL CO2, | 25 | 23 - 29 mmol/L | [facility] | | | PLASMA | | | DEPARTMENT | | | (LAB) | | | OF | | | | | | PATHOLOGY | | + +---------+ + + + | ALT (SGPT) | 31 | 13 - 48 U/L | [facility] | | | | | | DEPARTMENT | | | | | | OF | | | | | | PATHOLOGY | | + +---------+ + + + + + | Specimen | + + | | + + + + + + + | Performing | Address | City/State/Zipcode | Phone Number | | Organization | | | | + + + + + | [facility] | [address] [facility] | [place] [address] | | | PATHOLOGY | [address] | | | + + + + + | [facility] | [facility] [facility] | [place] [address] | | | PATHOLOGY | [address] | | | + + + + + TROPONIN I (07/18/2004 9:20 AM PST) + +-------+ + + + | Component | Value | Ref Range | Performed | Pathologist | | | | | At | Signature | + +-------+ + + + | TROPONIN I | 0.01 | <0.50 ng/mL | [facility] | | | | | [...] | + + + + + | [facility] DEPARTMENT | [address] | [place] [address] | | | PATHOLOGY | [address] | | | + + + + + | [facility] | [address] | [place] [address] | | | PATHOLOGY | [address] | | | + + + + + ABD ACUTE 3 VIEWS & PA CHEST (07/18/2004 8:02 AM PST) + + + + + + | Component | Value | Ref Range | Performed | Pathologist | | | | | At | Signature | + + + + + + | ABD ACUTE 3 | Radiologist 1: CLAUDIA, | | | | | VIEWS (2 V | Leanne LUCAS view | | | | | ABD & 1 V | obstruction series. No | | | | | CXR) | comparisons. Lungs are | | | | | | clear. Nasogastric | | | | | | tube terminates in the | | | | | | fundus. Cholecystectomy | | | | | | clips are noted in the | | | | | | right upper | | | | | | quadrant.There are | | | | | | mildly dilated left | | | | | | upper quadrant and mid | | | | | | abdominalsmall bowel | | | | | | loops with fluid levels. | | | | | | No definite gas seen | | | | | | in thecolon, in keeping | | | | | | with small bowel | | | | | | obstruction. | | | | | | Furtherevaluation with | | | | | | CT may be obtained for | | | | | | further delineation of | | | | | | thesite and degree of | | | | | | obstruction. CONCLUSION: | | | | | | 1. Small bowel | | | | | | obstruction. | | | | + + + + + + + + | Specimen | + + | | + + + +---------+ + + | Performing | Address | City/State/[facility] | Phone Number | | Organization | | | | + +---------+ + + | [facility] DEPARTMENT OF | | | | | RADIOLOGY | | | | + +---------+ + + TROPONIN I (07/18/2004 12:15 AM PST) + +-------+ + + + | Component | Value | Ref Range | Performed | Pathologist | | | | | At | Signature | + +-------+ + + + | TROPONIN I | 0.01 | <0.50 ng/mL | [facility] | | | | | [...] | + + + + + | [facility] | [address] | [place] [address] | | | PATHOLOGY | [address] | | | + + + + + | [facility] | [address] [facility] | [place] [address] | | | PATHOLOGY | [address] | | | + + + + + documented in this encounter Visit Diagnoses Not on filedocumented in this encounter"
--- OUTSIDE RECORDS SUMMARY | ~2020-05-04 | XMS | Encounter Summary ---
Demographics + + + | Address | [address] | | | [place] [address] | + + + | Home Phone | | + + + | Preferred Language | Unknown | + + + | Marital Status | | + + + | Mosque Affiliation | CHR | + + + | Race | White | + + + | Ethnic Group | Not or | + + + Author + + + | Author | [facility] | + + + | Organization | [facility] | + + + | Address | Unknown | + + + | Phone | Unavailable | + + + Support + + + + + | Name | Relationship | Address | Phone | + + + + + | Gene Gee | ECON | [address] | | | | | [place], | | | | | [place] [address] | | + + + + + Care Team Providers + +------+ + | Care Night Auditor Name | Role | Phone | + +------+ + | Antony Ribera MD | PCP | | + +------+ + Reason for Visit + + + | Reason | Comments | + + + | New patient | [facility] referral with outside records also | | consultation | | + + + Encounter Details +--------+ + + + + | Date | Type | Department | Care Team | Description | +--------+ + + + + | 08/25/ | Prospecting Observer | Pulmonary & | Ruth Hernandez, | | | 2008 | | Critical Care | MD | | | | | Medicine at | | | | | | [facility] | | | | | | [address] | | | | | | [facility] | | | | | | [place], [address] [place] [address] | | | | | | [place], [place] | | | | | | [address] | | | | | | [phone] | | | +--------+ + + + [...] this encounter Miscellaneous Notes Telephone Encounter - Jorden Mccarty - 12/13/2011 12:51 PM PDTThis encounter has been admin istratively closed with the authorization of the [facility] Committee. documented in this encount er Plan of Treatment Not on filedocumented as of this encounter Visit Diagnoses Not on filedocumented in this encounter"
--- OUTSIDE RECORDS SUMMARY | ~2020-05-04 | XMS | Encounter Summary ---
Demographics + + + | Address | [address] | | | [place] [address] | + + + | Home Phone | | + + + | Preferred Language | Unknown | + + + | Marital Status | | + + + | Cheondoism Affiliation | CHR | + + + [...] + | Gene Gee | ECON | [address] | | | | | [place], | | | | | [place] [address] | | + + + + + Care Team Providers + +------+ + | Care Expressive Art Therapist Name | Role | Phone | + +------+ + | Antony Ribera MD | PCP | | + +------+ + Encounter Details +--------+ + + + + | Date | Type | Department | Care Team | Description | +--------+ + + + + | 04/18/ | Documentati | [facility] | | | 2006 | on | at [facility] [address] | [address] | | | | | [place] | [place], [place] | | | | | [id number] | [address] | | | | | [place], | [phone] | | | | | [place] [address] | | | | | | [phone] | | | +--------+ + + + [...]
--- OUTSIDE RECORDS SUMMARY | ~2020-05-04 | XMS | Encounter Summary ---
Demographics + + + | Address | [address] | | | [place] [address] | + + + | Home Phone [...] + | Gene Gee | ECON | [address] | | | | | [place], | | | | | [place] [address] | | + + + + + Care Team Providers + +------+ + | Care Svp Group Director Name | Role | Phone | + +------+ + | Antony Ribera MD | PCP | | + +------+ + Encounter Details +--------+ + + + + | Date | Type | Department | Care Team | Description | +--------+ + + + + | 07/25/ | Office | [facility] | Nurse5, [address] | | | 2007 | Visit-ECX | Clinics at [address] | [address] | | | | | [address] [address] | [place] [address] | | | | | [facility] | [address], [address] | | | | | [facility], | [address] [place], | | | | | [address] | [place] [address] | | | | | [place], [place] | | | | | | [address] | | | | | | [phone] | | | +--------+ + + + [...] + + + | Blood Pressure | 118/62 | 07/25/2007 11:11 AM | | | | | PST | | + + + + + | Pulse | 98 | 07/25/2007 11:11 AM | | | | | PST | | + + + + + | Temperature | 36.7 C (98 F) | 07/25/2007 11:11 AM | | | | | PST | | + + + + + | Respiratory Rate | - | - | | + + + + + | Oxygen Saturation | - | - | | + + + + + | Inhaled Oxygen | - | - | | | Concentration | | | | + + + + + | Weight | 68 kg (149 lb 14.6 | 07/25/2007 11:11 AM | | | | oz) | PST | | + + + + + | Height | - | - | | + + + + + | Body Mass Index | 24.57 | 05/02/2007 2:06 PM | | | | | PDT | | + + + + + documented in this encounter Plan of Treatment Not on filedocumented as of this encounter Visit Diagnoses Not on filedocumented in this encounter"
--- OUTSIDE RECORDS SUMMARY | ~2020-05-04 | XMS | Clinical Summary ---
Demographics + + + | Address | [address] | | | [place] [address] | + + + | Home Phone | | + + + | Preferred Language | Unknown | + + + | Marital Status | | + + + | Sikhism Affiliation | 1013 | + + + | Race | White | + + + | Ethnic Group | Not or | + + + Author + + + | Author | [facility] | | | and [place] | + + + | Organization | [facility] | | | and [place] | + + + | Address | Unknown | + + + | Phone | Unavailable | + + + Support + + +---------+ + | Name | Relationship | Address | Phone | + + +---------+ + | Akbar Flynn | ECON | Unknown | | + + +---------+ + Care Team Providers + +------+ + | Care Sales Merchandising Specialist Name | Role | Phone | + +------+ + | Alec Hill MD | PCP | | + +------+ + Allergies + + + + + + | Active Allergy | Reactions | Severity | Noted | Comments | | | | | Date | | + + + + + + | Adhesive & Tape | Rash | Medium | 07/06/20 | Ok with coban | | | | | 07 | | + + + + + + | Albuterol | Other (See | Low | 03/07/20 | | | | Comments), | | 07 | | | | Palpitations, Nausea | | | | | | And Vomiting | | | | + + + + + + | Diltiazem | Hives | High | 07/29/19 | Localized near IV | | | | | 18 | site | + + + + + + | Celecoxib | Other (See Comments) | Medium | 07/29/19 | RASH | | | | | 18 | | + + + + + + | Ciprofloxacin | Rash | Medium | 07/29/19 | Rash | | | | | 18 | | + + + + + + | Rosuvastatin | Myalgia | | 07/29/19 | Muscle Pain, | | | | | 18 | "muscle spasms" | + + + + + + | Dexlansoprazole | Palpitations | Low | 04/02/20 | | | | | | 14 | | + + + + + + | Dofetilide | Other (See Comments) | | 02/08/20 | | | | | | 19 | | + + + + + + | Duloxetine | Other (See | Low | 08/07/19 | | | | Comments), Rash | | 19 | | + + + + + + | Flecainide | Other (See Comments) | Medium | 07/29/19 | GI distress | | | | | 18 | | + + + + + + | Gluten Meal | GI Upset | Low | 07/29/19 | GI distress | | | | | 18 | | + + + + + + | Hydrochlorothiazide | Other (See Comments) | Low | 11/26/19 | BREAST LUMPS | | W-Triamterene | | | 16 | | + + + + + + | Lactose | Cough | Medium | 11/03/19 | | | | | | 10 | Intestinal/congestio | | | | | | n. | | | | | | Intestinal/congestio | | | | | | n. | | | | | | Intestinal/congestio | | | | | | n. | + + + + + + | Lisinopril | Other (See Comments) | Medium | 09/26/19 | Dry hacky | | | | | 18 | continuous cough | + + + + + + | Milk-Related | GI Upset, Cough | Low | 04/02/20 | GI distress | | Compounds | | | 14 | | + + + + + + | Propafenone | Other (See Comments) | Medium | 07/29/19 | Rash, hives | | | | | 18 | | + + + + + + | Sulfa Antibiotics | Other (See | High | 07/01/20 | | | | Comments), Unknown | | 04 | | + + + + + + | Uncoded | GI Upset | Low | 07/29/19 | "kapidex" | | Nonscreenable | | | 18 | | | Allergen | | | | | + + + + + + Medications + + + +---------+------+------+-------+ | Medication | Sig | Dispensed | Refills | Star | End | Statu | | | | | | t | Date | s | | | | | | Date | | | + + + +---------+------+------+-------+ | RABEprazole | Take 20 mg by mouth | | 0 | 01/1 | | Activ | | (ACIPHEX) 20 mg EC | 2 (two) times daily. | | | 11/02 | | e | | tablet | | | | 18 | | | + + + +---------+------+------+-------+ | tiotropium | Inhale 18 mcg into | | 0 | 01/1 | | Activ | | (SPIRIVA HANDIHALER) | the lungs daily. | | | 4/20 | | e | | 18 mcg inhalation | | | | 18 | | | | capsule | | | | | | | + + + +---------+------+------+-------+ | | Place 1 drop into | | 0 | 01/1 | | Activ | | carboxymethylcellulo | both eyes 3 (three) | | | 4/20 | | e | | se (REFRESH TEARS) | times daily as | | | 18 | | | | 0.5% ophthalmic | needed. | | | | | | | solution | | | | | | | + + + +---------+------+------+-------+ | fluticasone | 1 spray by Each Nare | | 0 | 01/1 | | Activ | | (FLONASE) 50 | route 2 (two) times | | | 4/20 | | e | | mcg/nasal spray | daily. | | | 18 | | | + + + +---------+------+------+-------+ | traMADol (ULTRAM) | Take 50 mg by mouth | | 0 | | | Activ | | 50 mg tablet | every 6 hours as | | | | | e | | | needed. | | | | | | + + + +---------+------+------+-------+ | budesonide | Inhale 2 puffs into | | 0 | | | Activ | | (PULMICORT | the lungs. | | | | | e | | FLEXHALER) 180 | | | | | | | | mcg/puff inhaler | | | | | | | + + + +---------+------+------+-------+ | | Place 1 drop in | | 0 | | | Activ | | carboxymethylcellulo | ear(s). | | | | | e | | se, PF, (THERATEARS) | | | | | | | | 0.25% ophthalmic | | | | | | | | solution | | | | | | | + + + +---------+------+------+-------+ | VITAMINS A C PO | take 1 capsule by | | 0 | | | Activ | | | oral route once | | | | | e | | | daily with food | | | | | | + + + +---------+------+------+-------+ | albuterol | Take 2 mg by mouth. | | 0 | | | Activ | | (PROVENTIL) 2 mg | | | | | | e | | tablet | | | | | | | + + + +---------+------+------+-------+ | calcium | 2 tabs in evening | | 0 | | | Activ | | citrate-vitamin D | and liquid calcium | | | | | e | | (CITRACAL+D) 315 | citrate in AM | | | | | | | mg-200 units per | | | | | | | | tablet | | | | | | | + + + +---------+------+------+-------+ | cetirizine | Take 10 mg by mouth | | 0 | | | Activ | | (ZYRTEC) 10 mg | Daily. | | | | | e | | tablet | | | | | | | + + + +---------+------+------+-------+ | cholecalciferol | Take 3,000 Units by | | 0 | | | Activ | | (VITAMIN D-3) 1,000 | mouth. | | | | | e | | units capsule | | | | | | | + + + +---------+------+------+-------+ | cycloSPORINE | 1 drop 2 times | | 0 | | | Activ | | (RESTASIS) 0.05% | daily. | | | | | e | | ophthalmic emulsion | | | | | | | + + + +---------+------+------+-------+ | ipratropium | Inhale 0.5 mg into | | 0 | 05/1 | | Activ | | (ATROVENT) 500 | the lungs. | | | 5/20 | | e | | mcg/2.5 mL nebulizer | | | | 19 | | | | solution | | | | | | | + + + +---------+------+------+-------+ | ipratropium | Inhale 2 puffs into | | 0 | | | Activ | | (ATROVENT HFA) 17 | the lungs every 6 | | | | | e | | mcg/puff inhaler | hours. | | | | | | + + + +---------+------+------+-------+ | | Inhale 3 mLs into | | 0 | | | Activ | | albuterol-ipratropiu | the lungs every 6 | | | | | e | | m 2.5-0.5 mg/3 mL | hours as needed. | | | | | | | SOLN | | | | | | | + + + +---------+------+------+-------+ | levalbuterol | Inhale 1.25 mg into | | 0 | 05/1 | | Activ | | (XOPENEX) 1.25 mg/3 | the lungs. | | | 5/20 | | e | | mL nebulizer | | | | 19 | | | | solution | | | | | | | + + + +---------+------+------+-------+ | levalbuterol | Inhale 1-2 puffs | | 0 | 05/1 | | Activ | | (XOPENEX HFA) 45 | into the lungs. | | | 5/20 | | e | | mcg/puff inhaler | | | | 19 | | | + + + +---------+------+------+-------+ | levalbuterol | | | 0 | 12/2 | | Activ | | (XOPENEX HFA) 45 | | | | 2/20 | | e | | mcg/puff inhaler | | | | 18 | | | + + + +---------+------+------+-------+ | loratadine | Take 10 mg by mouth | | 0 | | | Activ | | (CLARITIN) 10 mg | Daily. | | | | | e | | tablet | | | | | | | + + + +---------+------+------+-------+ | LORazepam (ATIVAN) | Take 0.5 mg by | | 0 | | | Activ | | 0.5 mg tablet | mouth. | | | | | e | + + + +---------+------+------+-------+ | LORazepam (ATIVAN) | Take 0.5 mg by | | 0 | 11/2 | | Activ | | 1 mg tablet | mouth. | | | 6/20 | | e | | | | | | 12 | | | + + + +---------+------+------+-------+ | MAGNESIUM PO | Take 1 tablet by | | 0 | | | Activ | | | mouth. | | | | | e | + + + +---------+------+------+-------+ | methylPREDNISolone | | | 0 | 05/2 | | Activ | | (MEDROL DOSEPAK) 4 | | | | 9/20 | | e | | mg tablet | | | | 19 | | | + + + +---------+------+------+-------+ | ofloxacin | 1 drop. | | 0 | 06/0 | | Activ | | (OCUFLOX) 0.3% | | | | 9/20 | | e | | ophthalmic solution | | | | 16 | | | + + + +---------+------+------+-------+ | Polyethylene | Take 17 g by mouth | | 0 | | | Activ | | Glycol 3350 (PEG | Daily as needed. | | | | | e | | 3350) POWD | | | | | | | + + + +---------+------+------+-------+ | Probiotic Product | Take by mouth. | | 0 | | | Activ | | (PROBIOTIC & | | | | | | e | | ACIDOPHILUS EX ST) | | | | | | | | CAPS | | | | | | | + + + +---------+------+------+-------+ | potassium chloride | Take 1 packet by | 180 | 3 | 09/2 | | Activ | | (KLOR-CON) 20 MEQ | mouth 2 times daily. | tablet | | 4/20 | | e | | packet | | | | 19 | | | + + + +---------+------+------+-------+ | ezetimibe (ZETIA) | TAKE ONE TABLET BY | 90 | 3 | 09/2 | | Activ | | 10 mg tablet | MOUTH EVERY DAY | tablet | | 8/20 | | e | | | | | | 20 | | | + + + +---------+------+------+-------+ | potassium chloride | TAKE ONE TABLET BY | 180 | 3 | 09/2 | | Activ | | (MARIYAOR-CON M20) 20 | MOUTH TWICE A DAY | tablet | | 8/20 | | e | | mEq ER tablet | | | | 20 | | | + + + +---------+------+------+-------+ +---+ + | | Additional | | | InformationPatient | | | not taking. Reported | | | on 04/30/2020 8:38 | | | AM | +---+ + + + +---------+----+------+------+-------+ | ELIQUIS 5 MG | TAKE ONE TABLET BY | 180 | 3 | 09/2 | | Activ | | tablet | MOUTH TWICE A DAY | tablet | | 8/20 | | e | | | | | | 20 | | | + + +---------+----+------+------+-------+ | losartan (COZAAR) | TAKE ONE TABLET BY | 90 | 3 | 09/2 | | Activ | | 100 MG tablet | MOUTH EVERY EVENING | tablet | | 8/20 | | e | | | | | | 20 | | | + + +---------+----+------+------+-------+ | dofetilide | TAKE ONE CAPSULE BY | 180 | 11 | 09/2 | | Activ | | (TIKOSYN) 250 mcg | MOUTH TWICE A DAY | capsule | | 8/20 | | e | | capsule | | | | 20 | | | + + +---------+----+------+------+-------+ | bisoprolol | TAKE ONE TABLET BY | 90 | 3 | 09/2 | | Activ | | (ZEBETA) 10 MG | MOUTH EVERY DAY | tablet | | 8/20 | | e | | tablet | | | | 20 | | | + + +---------+----+------+------+-------+ | hydrALAZINE | Take 1 tablet by | 180 | 3 | 10/1 | | Activ | | (APRESOLINE) 10 mg | mouth 2 times daily. | tablet | | 6/20 | | e | | tablet | | | | 20 | | | + + +---------+----+------+------+-------+ | bisoprolol | Take 1 tablet by | 90 | 3 | 09/2 | /2 | Disco | | (ZEBETA) 10 MG | mouth Daily. | tablet | | 4/20 | 8/20 | ntinu | | tablet | | | | 19 | 20 | ed | + + +---------+----+------+------+-------+ | dofetilide | Take 1 capsule by | 180 | 11 | 09/2 | 09/2 | Disco | | (TIKOSYN) 250 mcg | mouth 2 times daily. | capsule | | 4/20 | 8/20 | ntinu | | capsule | | | | 19 | 20 | ed | + + +---------+----+------+------+-------+ | losartan (COZAAR) | Take 1 tablet by | 90 | 3 | 09/2 | 09/2 | Disco | | 100 MG tablet | mouth nightly. | tablet | | 4/20 | 8/20 | ntinu | | | | | | 19 | 20 | ed | + + +---------+----+------+------+-------+ | ezetimibe (ZETIA) | Take 1 tablet by | 90 | 3 | 09/2 | 09/2 | Disco | | 10 mg tablet | mouth Daily. | tablet | | 4/20 | 8/20 | ntinu | | | | | | 19 | 20 | ed | + + +---------+----+------+------+-------+ | apixaban (ELIQUIS) | Take 1 tablet by | 180 | 3 | /2 | /2 | Disco | | 5 mg tablet | mouth 2 times daily. | tablet | | 4/20 | 8/20 | ntinu | | | | | | 19 | 20 | ed | + + +---------+----+------+------+-------+ | potassium chloride | Take 1 tablet by | 180 | 3 | 09/2 | 09/2 | Disco | | (KLOR-CON M20) 20 | mouth 2 times daily. | tablet | | / | 8/20 | ntinu | | mEq ER tablet | | | | 19 | 20 | ed | + + +---------+----+------+------+-------+ | hydrALAZINE | Take 1 tablet by | 90 | 11 | 03/ | 04/15 | Disco | | (APRESOLINE) 10 mg | mouth 3 times daily. | tablet | | 11/02 | 01/02 | ntinu | | tablet | | | | 20 | 20 | ed | | | | | | | | (Reor | | | | | | | | roxana | | | | | | | | (no | | | | | | | | Cance | | | | | | | | l Rx | | | | | | | | msg)) | + + +---------+----+------+------+-------+ Active Problems + + + | Problem | Noted Date | + + + | Age-related osteoporosis without current pathological fracture | 08/07/2018 | + + + + + | Overview: Devaughn ; September 2018 | | DXA 06/13/17: L -1.4 H -1.5 | | DXA 06/02/15: L -1.6 H -1.9 | | DXA 06/06/13; L -1.6 H -1.9 | | DXA 04/28/11: L -1.8 H -1.8 | | DXA 01/27/10: L -1.9 H -1.6 | | DXA 12/28/08: L -1.9 H -1.5 | + + + + + | History of breast cancer | 09/30/2017 | + + + + + | Overview: Diagnosed in February 2007. Treated with right | | mastectomy in March 2007. Treated with chemotherapy | | including Taxotere, Cytoxan, and Neulasta (until August 2007). | | Lymphedema of the right arm in October 2007. Reconstructive breast | | surgery with implant from June 2012 until April 2014. On | | Arimidex for 5 years. Will be getting another reclast injection. | + + + + + | Sjogren's disease | 09/30/2017 | + + + + + | Overview: Diagnosed in 1995. Also has had fibromyalgia. | + + + + + | History of asthma | 09/30/2017 | + + + + + | Overview: Diagnosed [place] [address] [facility]. On albuterol and | | ipratropium bromide nebulizer and Pulmicort/Flonase and Spiriva | | inhalers. | + + + + + | Hx of pulmonary embolus | 09/30/2017 | + + + + + | Overview: She had a right leg deep venous thrombosis and | | pulmonary embolus involving the left lung on September 17, 2008, in | | the context of recent breast cancer therapy. | + + + + + | Moderate tricuspid regurgitation by prior echocardiogram | 08/02/2017 | + + + + + | Overview: Moderate MR and TR on echo. Continue losartan. | | Repeat an echo next visit (2 years after the last | | visit)04/30/2020:Because of moderate MR and TR, hydralazine was | | attempted but was not tolerated because of hypotension. I have | | asked her to try that again and start with 5 mg twice per day and | | uptitrate that as she tolerates. Continue losartan 100 | | milligrams at bedtime. | + + + + + | Atrial tachycardia | 07/31/2017 | + + + + + | Overview: Hx of s/p successful ablation of stacey tach 2004. 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 Successfully suppressed | | with dofetilide- however Tikosyn was discontinued 04/2017 by | | Elijah Whalen because of inadequate control of symptoms and | | atrial fibrillation during eye surgery. Dofetilide was resumed | | on July 31, 2017 and she converted from atrial fibrillation | | back to sinus rhythm after the first dose. Continue dofetilide | | indefinitely, but lower the dose to 500 g every morning and 250 | | g every evening, because the QTC was prolonged today (505 ms). | | A recent potassium was 4.0 and I've recommended adding 10 meq | | of potassium per day to her regimen. Empirically add magnesium | | oxide 400 mg per day also. Continue bisoprolol 5 mg twice a day | | for rate control. Continue rivaroxaban. 04/02/18: She is doing | | well, with no atrial fibrillation. She has rare ectopic beats. | | The QTC today was 509 ms, so dofetilide dose will be decreased to | | 250 g twice a day. Her anticoagulant will be switched to | | apixaban 5mg bid. Bisoprolol will be changed from 5 mg twice a | | day to 10 mg every morning. 10/01/18: Doing well on current | | treatment. Has an occasional "arrhythmia" lasting for a few | | seconds at a time but nothing sustained. A recent potassium was | | 3.9. We will therefore increase potassium to 20 mEq per day. A | | recent creatinine was 0.64 and BUN17.10/07/2019:Has occasional | | fluttering. Lasts up to 5 minutes. Uncertain rhythm. Uncertain | | rate. Continue current therapy for now. Add hydralazine to | | help decrease the amount of mitral regurgitation. | + + + + + | Paroxysmal atrial fibrillation | 07/31/2017 | + + + + + | Overview: Her chads 2 vascular score is 3.Preserved LV | | systolic function EF 55% on most recent echo with moderately | | dilated LA. moderate MR and TR. On apixaban, with no signs or | | symptoms of bleeding. Continue Bisoprolol 5 mg twice a day for | | rate control, given underlying asthma. She can take 5-10 mg if | | needed for fast heart rates (pill in a pocket approach) . | | Continue Dofetilide 250mcg BID. Her chads 2 vascular score is 3. | | 10/01/18: Doing well on current therapy. Has occasional | | "arrhythmia" lasting for a few seconds but nothing sustained. | | Continue current therapy. Increase potassium to 20 meq per day, | | since a recent potassium was 3.9 (July 2018)04/08/2019:There | | have been no episodes of atrial fibrillation. Continue current | | therapy.10/07/2019:Doing well. Has occasional "flutters" that | | last up to 5 minutes. Has not taken her pulse rate. Recent labs | | from July 29, 2019 include a potassium of 4.3, creatinine | | 0.82, BUN 15. Liver function tests were normal. Cholesterol was | | 175 with HDL of 53 LDL 106 and triglycerides 80. Hemoglobin is | | 14.0.Recommendations:For racing heartbeat, take an extra 5 mg of | | bisoprolol if needed. (Or take it early)04/30/2020:She has | | irregular heartbeats lasting for 3 to 5 minutes almost daily. | | Denies any tachycardias. She has been taking extra bisoprolol | | once or twice per week for the last 2 to 3 weeks (5 mg tablet). | | She drinks only rare caffeinated beverages (decaffeinated green | | tea).She has right shoulder surgery scheduled with Dr. Choi in | | the near future. Have recommended taking her dofetilide and | | bisoprolol the morning of the surgery and continue it | | perioperatively at the current doses. Can stop apixaban 48 hours | | before the surgery and resume it as soon as okay with | | Jimbo afterwards. If atrial fibrillation occurs | | perioperatively, intravenous metoprolol can be given as needed | | for rate control. She has been reminded to keep caffeinated | | beverages to a minimum. Because of moderate MR and TR, | | hydralazine was attempted but was not tolerated because of | | hypotension. I have asked her to try that again and start with 5 | | mg twice per day and uptitrate that as she tolerates. | + + + + + | Mitral valve prolapse | 07/31/2017 | + + + + + | Overview: MVP Dx 20 years ago. 07/23/2017 TTE Impression 1. | | Atrial fibrillation with rapid ventricular response. 2. The left | | ventricle is normal in size, wall thickness and systolic | | function EF 55%. 3. The right ventricle is normal in size and | | function. 4. Moderate mitral regurgitation and moderately | | enlarged left atrium. 5. Moderate tricuspid regurgitation with no | | pulmonary hypertension. 6. There is no pericardial effusion. | | Losartan will be increased to 100mg QHS, to treat the moderate MR | | and TR. She previously stopped lisinopril because of a cough . | | | |Losartan will be increased to 100mg QHS, to treat the moderate MR and TR. She previously s topped lisinopril because of a cough . | + + + + + | Congestive heart failure of unknown etiology | 07/29/2017 | + + + + + | Overview: She had normal LV systolic function and moderate MR | | and TR on an echo. Probable diastolic dysfunction leading to | | heart failure previously. (In the context of atrial tachycardia) | | 04/02/18 She has trace edema in the lower extremities that | | resolves with support stockings and when she lays down. Losartan | | will be increased to 100 mg daily at bedtime because of | | moderate MR and TR. 10/01/18: Doing well on current treatment. | | Continue it.04/08/2019:She is doing well on current therapy. She | | has avoided salt, with significant weight loss. An echo will be | | repeated at the next visit.10/07/2019:Add hydralazine starting | | with 12.5 mg twice daily to the current regimen. Increase that | | as she tolerates, to treat the mitral regurgitation | + + + + + | Chronic anticoagulation | 07/29/2017 | + + + | Acquired absence of breast and nipple | 04/06/2014 | + + + | Asthma | 02/03/2014 | + + + | Breast cancer, right | 05/21/2008 | + + + Encounters +--------+---------+ + + + | Date | Type | Specialty | Care Team | Description | +--------+---------+ + + + | 04/30/ | Office | Cardiology | Martin Kelley, | Mitral valve | | 2019 | Visit | | MD | insufficiency, | | | | | | unspecified etiology | | | | | | (Primary Dx); | | | | | | Paroxysmal atrial | | | | | | fibrillation (HCC); | | | | | | Moderate tricuspid | | | | | | regurgitation by | | | | | | prior echocardiogram | +--------+---------+ + + + | 04/12/ | Refill | Cardiology | Martin Kelley, | Medication Refill | | 2019 | | | MD | | +--------+---------+ + + + from Last 3 Months Immunizations + + + + | Name | Administration Dates | Next Due | + + + + | INFLUENZA PF 63 Y OR | 02/27/2019 | | | >,TRIVALENT (FLUAD) | | | + + + + | PNEUMOCOCCAL | 03/25/2015 | | | CONJUGATE 13-VALENT | | | | (PCV13) | | | + + + + | PNEUMOCOCCAL | 05/03/2017, 03/25/2015 | | | POLYSACCHARIDE | | | | 23-VALENT (PPSV23) | | | + + + + | TDAP, (ADOL/ADULT) | 11/07/2011 | | + + + + | ZOSTER NON-LIVE | 01/08/2019 | | | (SHINGRIX) | | | + + + + | ZOSTER, 1 DOSE | 01/22/2008 | | | (ZOSTAVAX) | | | + + + + Family History + + +------+ + | Medical History | Relation | Name | Comments | + + +------+ + | Heart disease | Mother | | | + + +------+ + + +------+ + + | Relation | Name | Status | Comments | + +------+ + + | Father | | | post surgical hernia complications, | | | | (Age | pneumonia | | | | 94) | | + +------+ + + | Maternal Grandfather | | | DM1 dies @ 32 years old | + +------+ + + | Maternal Grandmother | | | of broken heart | | | | (Age | | | | | 82) | | + +------+ + + | Mother | | | CHF, CAD | | | | (Age | | | | | 86) | | + +------+ + + | Mother | | | | + +------+ + + | Paternal Grandfather | | | DMII, HTN | + +------+ + + | Paternal Grandmother | | | giving childbirth | | | | (Age | | | | | 32) | | + +------+ + + Social History + +-------+ +--------+------+ [...] + + | Tobacco Cessation: Counseling Given: No | | Comments: second hand smoke | + + + + + | Sex Assigned at | Date Recorded | | | | + + + | Not on file | | + + + Last Filed Vital Signs + + + + + | Vital Sign | Reading | Time Taken | Comments | + + + + + | Blood Pressure | 133/77 | 04/30/2020 8:38 AM | | | | | PDT | | + + + + + | Pulse | 58 | 04/30/2020 8:38 AM | | | | | PDT | | + + + + + | Temperature | 36.8 C (98.2 F) | 08/02/2017 7:57 PM | | | | | PST | | + + + + + | Respiratory Rate | 16 | 04/08/2019 9:47 AM | | | | | PDT | | + + + + + | Oxygen Saturation | 99% | 04/30/2020 8:38 AM | | | | | PDT | | + + + + + | Inhaled Oxygen | - | - | | | Concentration | | | | + + + + + | Weight | 64.4 kg (142 lb) | 04/30/2020 8:38 AM | | | | | PDT | | + + + + + | Height | 165.1 cm (5' 5") | 04/30/2020 8:38 AM | | | | | PDT | | + + + + + | Body Mass Index | 23.63 | 04/30/2020 8:38 AM | | | | | PDT | | + + + + + Plan of Treatment +--------+ + + + + | Date | Type | Specialty | Care Team | Description | +--------+ + + + + | 05/19/ | Office | Orthopedic Surgery | Tee Choi, | | 2019 | Visit | | [address] | | | | | | [place] [address] | | | | | | [phone] | | | | | | | | +--------+ + + + + | 05/19/ | Appointment | Cardiology | Martin Kelley, | | | 2019 | | | MD [address] | | | | | | [place], | | | | | | [place] [address] | | | | | | [phone] | | | | | | | | +--------+ + + + + | 11/26/ | Office | Cardiology | Martin Kelley, | | | 2020 | Visit | | MD [address] | | | | | | [place], | | | | | | [place] [address] | | | | | | [phone] | | | | | | | | +--------+ + + + + + + + + + | Health Maintenance | Due Date | Last | Comments | | | | Done | | + + + + + | Hepatitis C | | | | | Screening | 4 | | | + + + + + | Med Mgmt: Vit D | | | | | | 4 | | | + + + + + | Medication | | | | | Management | 4 | | | + + + + + | Breast Cancer | | | | | Screening | 9 | | | + + + + + | Med Mgmt: Mg | | 08/01/19 | | | | 9 | 18, | | | | | 07/30/19 | | | | | 18, | | | | | 07/29/19 | | | | | 18 | | + + + + + | Med Mgmt: HCT | | 08/02/19 | | | | 9 | 18, | | | | | 08/01/19 | | | | | 18, | | | | | 07/31/19 | | | | | 18, | | | | | Addition | | | | | al | | | | | history | | | | | exists | | + + + + + | Med Mgmt: HGB | | 08/02/19 | | | | 9 | 18, | | | | | 08/01/19 | | | | | 18, | | | | | 07/31/19 | | | | | 18, | | | | | Addition | | | | | al | | | | | history | | | | | exists | | + + + + + | Med Mgmt: PLT | | 08/02/19 | | | | 9 | 18, | | | | | 08/01/19 | | | | | 18, | | | | | 07/31/19 | | | | | 18, | | | | | Addition | | | | | al | | | | | history | | | | | exists | | + + + + + | Med Mgmt: RBC | | 08/02/19 | | | | 9 | 18, | | | | | 08/01/19 | | | | | 18, | | | | | 07/31/19 | | | | | 18, | | | | | Addition | | | | | al | | | | | history | | | | | exists | | + + + + + | Med Mgmt: WBC | | 08/02/19 | | | | 9 | 16, | | | | | 08/01/19 | | | | | 18, | | | | | 07/31/19 | | | | | 18, | | | | | Addition | | | | | al | | | | | history | | | | | exists | | + + + + + | Adult Annual | | | | | Wellness Visit | 9 | | | + + + + + | Med Mgmt: Cr | | 04/02/20 | | | | 9 | 18, | | | | | 08/02/19 | | | | | 18, | | | | | 08/01/19 | | | | | 18, | | | | | Addition | | | | | al | | | | | history | | | | | exists | | + + + + + | Med Mgmt: ECG | | 04/02/20 | | | | 9 | 18, | | | | | 09/26/19 | | | | | 18, | | | | | 07/29/19 | | | | | 18 | | + + + + + | Med Mgmt: K | | 04/02/20 | | | | 9 | 18, | | | | | 08/02/19 | | | | | 18, | | | | | 08/01/19 | | | | | 18, | | | | | Addition | | | | | al | | | | | history | | | | | exists | | + + + + + | Med Mgmt: eGFR | | 04/02/20 | | | | 9 | 18, | | | | | 08/02/19 | | | | | 18, | | | | | 08/01/19 | | | | | 18, | | | | | Addition | | | | | al | | | | | history | | | | | exists | | + + + + + | Vaccine: | | 11/07/19 | | | Dtap/Tdap/Td (2 - | 2 | 12 | | | Td) | | | | + + + + + | Vaccine: | Completed | 05/03/20 | | | Pneumococcal 65+ | | 17, | | | | | 03/25/20 | | | | | 15, | | | | | 03/25/20 | | | | | 15 | | + + + + + | Vaccine: Zoster | Completed | 04/10/20 | | | | | 19, | | | | | 01/09/20 | | | | | 19, | | | | | 01/22/20 | | | | | 08 | | + + + + + | Vaccine: Influenza | Completed | 03/16/20 | | | | | 20, | | | | | 02/28/20 | | | | | 19, | | | | | 05/03/20 | | | | | 17 | | + + + + + Results Not on filefrom Last 3 Months Insurance + +--------+ +--------+ + +--------+ | Payer | Benefi | Subscriber | Effect | Phone | Address | Type | | | t Plan | ID | wilbert | | | | | | / | | Dates | | | | | | Group | | | | | | + +--------+ +--------+ + +--------+ | MEDICARE | MEDICA | [id number] | 08/16/19 | [phone] | | Medica | | | RE | | 09-Pre | 5 | | re | | | PART A | | sent | | | | | | AND B | | | | | | + +--------+ +--------+ + +--------+ | MEDICARE | MEDICA | [id number] | 08/16/19 | [phone] | | Medica | | | RE | | 09-Pre | 5 | | re | | | PART A | | sent | | | | | | AND B | | | | | | + +--------+ +--------+ + +--------+ | MODA | MODA | [id number] | 07/16/19 | [id number] | [address] | Indemn | | | HEALTH | | 19-Pre | 9 | [phone] | [address]y | | | MDCR | | sent | | [place], | | | | [place] | | | | [place] [address] | | + +--------+ +--------+ + +--------+ | MODA | MODA | [id number] | 07/16/19 | [id number] | [address] | PPO | | | HEALTH | | 19-Pre | 9 | [id number] | | | | | | sent | | [place], | | | | [place] | | | | [place] [address] | | | | [place] | | | | | | + +--------+ +--------+ + +--------+ + +--------+ +--------+ + + | Guarantor Name | Accoun | Relation to | Date | Phone | Billing Address | | | t Type | Patient | of | | | | | | | | | | + +--------+ +--------+ + + | Adriana Flynn | Person | Self | / | | [address] | | | al/Fam | | 1946 | [phone] | [address] [place], | | | yin | | | [address] (Home) | [place] [address] | + +--------+ +--------+ + + | Adriana Flynn | Person | Self | / | | [address] | | | al/Fam | | 1946 | [phone] | [address] [place], | | | yin | | | [address] (Home) | [place] [address] | + +--------+ +--------+ + + Advance Directives + + + + + | Type | Date Recorded | Patient | Explanation | | | | Sponsorship Manager | | + + + + + | Power of | | | | | [employer] | | | | + + + + + | Advance | | | | | Directive | | | | + + + + +
--- OUTSIDE RECORDS SUMMARY | ~2020-05-04 | XMS | Encounter Summary ---
Demographics + + + | Address | [address] | | | [place] [address] | + + + | Home Phone | | + + + | Preferred Language | Unknown | + + + | Marital Status | | + + + | Rastafarian Affiliation | CHR | + + + [...] + | Gene Gee | ECON | [address] | | | | | [place], | | | | | [place] [address] | | + + + + + Care Team Providers + +------+ + | Care Photo Stylist Name | Role | Phone | + +------+ + | Antony Ribrea MD | PCP | | + +------+ + Reason for Referral Consult to [place] (Routine) +--------+--------+ + + + + | Status | Reason | Specialty | Diagnoses / | Referred By | Referred To | | | | | Procedures | Contact | Contact | +--------+--------+ + + + + | Closed | | Plastic | Diagnoses | [facility] | Pls | | | | Surgery | Breast | Errol Holman, | Gen/Recon | | | | | cancer (HCC) | [address] | [address] | | | | | Procedures | [address] | [address] | | | | | REQUEST TO | [address] | [facility] | | | | | SURGERY | [facility] | | | | | [place] | [place] [address] | Healing, | | | | | | Phone: | [address], | | | | | | [phone] | 5th Floor | | | | | | Fax: | [place], [place] | | | | | | [phone] | [address] | | | | | | | Phone: | | | | | | | [phone] | +--------+--------+ + + + + Reason for Visit +---------+ + | Reason | Comments | +---------+ + | Post Op | op 03-05-13 R NAC recon a R medial scar revision | +---------+ + Global Period - Transplant (Routine) +--------+--------+ + + + + | Status | Reason | Specialty | Diagnoses / | Referred By | Referred To | | | | | Procedures | Contact | Contact | +--------+--------+ + + + + | Closed | | Plastic | | Non-[facility] | Pls | | | | Surgery | | Epic Dept | Gen/Recon | | | | | | | [address] | | | | | | | [address] | | | | | | | [facility] | | | | | | | Health and | | | | | | | Healing, | | | | | | | [address], | | | | | | | 5th Floor | | | | | | | [place], [place] | | | | | | | [address] | | | | | | | Phone: | | | | | | | [phone] | +--------+--------+ + + + + Encounter Details +--------+---------+ + + + | Date | Type | Department | Care Team | Description | +--------+---------+ + + + | 04/10/ | Office | Plastic and | Errol Gold | Breast cancer (HCC) | | 2013 | Visit | Reconstructive | MD Manda [address] | (Primary Dx) | | | | Surgery at [facility] [address] | | | [facility] | [address] [place], [place] | | | | | for Health and | [address] | | | | | [facility], [address], | | | | | | 5th Floor | | | | | | [place], [place] | | | | | | [address] | | | | | | [phone] | | | +--------+---------+ + + + [...] this encounter Last Filed Vital Signs + +---------+ + + | Vital Sign | Reading | Time Taken | Comments | + +---------+ + + | Blood Pressure | 138/61 | 04/10/2013 9:55 AM | | | | | PDT | | + +---------+ + + | Pulse | 60 | 04/10/2013 9:55 AM | | | | | PDT | | + +---------+ + + | Temperature | - | - | | + +---------+ + + | Respiratory Rate | 16 | 04/10/2013 9:55 AM | | | | | PDT | | + +---------+ + + | Oxygen Saturation | 100% | 04/10/2013 9:55 AM | | | | | PDT | | + +---------+ + + | Inhaled Oxygen | - | - | | | Concentration | | | | + +---------+ + + | Weight | - | - | | + +---------+ + + | Height | - | - | | + +---------+ + + | Body Mass Index | - | - | | + +---------+ + + documented in this encounter Progress Notes [facility] 04/10/2013 9:59 AM PDTPlastic and Reconstructive Surgery Post-operative Visit HPI: Adriana Flynn is a 67 y.o. female who presents today status-post R NAC recon and R medial s car revision on 03/05/13 and left breast mastopexy. She has no acute concerns or issues. She is concerned over the numbness of her left nipple and hypopigmentation. She also cites mild edema in the left breast. She is very happy with her projection Denies constitutional sxs. Denies fever, chills, fatigue. Denies increased surgical site pain, swelling, or progressive redness. PE: Vitals: BP 138/61 | Pulse 60 | RR 16 | SpO2 100% General Appearance: Well-developed, well-nourished female in no apparent distress. Chest: right breast NAC has no swelling. Medial breast incision is c/d/i and well approxima dean. Nipple has good projection and skin flaps are pink, cap refill is 2 sec, and w/o e/o ne crosis. There is no erythema, no induration, or drainage. Left breast incisions well healed with good symmetry Impression: S/P: R NAC recon and R medial scar revision Doing well Plan: - Doing well - Continue scar care - Is interested in tattooing - Follow up PRN for tattooing Plastic and Reconstructive Surgery Attending Note I personally interviewed the patient, performed the pertinent parts of the physical examina tion and personally formulated the plan with Dr. Waddell. I agree with the residents docume ntation and have documented any additions or exceptions. Doing well Plan for nipple micropigmentation at patient's convenience Mark Gold MD Division of Plastic and Reconstructive Surgery Pager:[phone] documented in this encounter Plan of Treatment Not on filedocumented as of this encounter Visit Diagnoses + + | Diagnosis | + + | Breast cancer (HCC) - Primary Malignant neoplasm of breast (female), unspecified site | + + documented in this encounter"
--- OUTSIDE RECORDS SUMMARY | ~2020-05-04 | XMS | Encounter Summary ---
Demographics + + + | Address | [address] | | | [place] [address] | + + + | Home Phone | | + + + | Preferred Language | Unknown | + + + | Marital Status | | + + + | Muslim Affiliation | CHR | + + + | Race | White | + + + | Ethnic Group | Not or | + + + Author + + + | Author | [facility] | + + + | Organization | [facility] | + + + | Address | Unknown | + + + | Phone | Unavailable | + + + Support + + + + + | Name | Relationship | Address | Phone | + + + + + | Gene Gee | ECON | [address] | | | | | [place], | | | | | [place] [address] | | + + + + + Care Team Providers + +------+ + | Care Covering And Lining Supervisor Name | Role | Phone | + +------+ + | Antony Ribera MD | PCP | | + +------+ + Reason for Visit + + + | Reason | Comments | + + + | PHT - Pulmonary | evaluation and treatment | | hypertension | | + + + Consultation (Routine) +--------+--------+ + + + + | Status | Reason | Specialty | Diagnoses / | Referred By | Referred To | | | | | Procedures | Contact | Contact | +--------+--------+ + + + + | Closed | | Pulmonary | Diagnoses | [place], | Z[facility]ul | | | | Disease | Dyspnea | Monique K, SALES SERVICE EXECUTIVE | Hypertension | | | | | Procedures | [address] | [address] | | | | | CONSULT TO | [address] | [address] | | | | | PULMONARY | [place], [place] | Mailcode: | | | | | | [address] | [id number] | | | | | | | Physician's | | | | | | | [address] | | | | | | | [place], [place] | | | | | | | [address] | | | | | | | Phone: | | | | | | | [phone] | | | | | | | Fax: | | | | | | | [phone] | +--------+--------+ + + + + Encounter Details +--------+---------+ + + + | Date | Type | Department | Care Team | Description | +--------+---------+ + + + | 09/08/ | Office | Pulmonary & | Ruth Lima, | Pulmonary | | 2008 | Visit | Critical Care | MD | Hypertension ([facility]) | | | | Medicine at | | (Primary Dx); | | | | [facility] | | Sjogren's Syndrome | | | | [address] | | ([facility]) | | | | [address] Physician's | | | | | | [place], [facility] Floor | | | | | | [place], [place] | | | | | | [address] | | | | | | [phone] | | | +--------+---------+ + + + [...] + + + | Blood Pressure | 134/78 | 09/08/2008 3:44 PM | | | | | PST | | + + + + + | Pulse | 77 | 09/08/2008 3:44 PM | | | | | PST | | + + + + + | Temperature | 36.7 C (98 F) | 09/08/2008 3:44 PM | | | | | PST | | + + + + + | Respiratory Rate | 12 | 09/08/2008 3:44 PM | | | | | PST | | + + + + + | Oxygen Saturation | 98% | 09/08/2008 3:44 PM | | | | | PST | | + + + + + | Inhaled Oxygen | - | - | | | Concentration | | | | + + + + + | Weight | 64.4 kg (142 lb) | 09/08/2008 3:44 PM | | | | | PST | | + + + + + | Height | 167 cm (5' 5.75") | 09/08/2008 3:44 PM | | | | | PST | | + + + + + | Body Mass Index | 23.09 | 09/08/2008 3:44 PM | | | | | PST | | + + + + + documented in this encounter Patient Instructions Patient Instructions Ruth Lima Md - 09/08/2008 5:42 PM PST1. Studies to be sched uled: right heart cath, chest CT, nocturnal oximetry study (at your home). 2. Labs drawn on . 3. Use flonase and nasal irrigations daily.Electronically signed by Ruth rodriguez 09/08/2008 5:42 PM PST documented in this encounter Progress Notes Jose Trimble MD - 2008 7:33 PM PSTI saw the patient with RUTH LIMA MD and perf ormed a history and physical examination of the patient and discussed her management with Dr Jose Lima. I reviewed and addended her excelelnt note and agree with the documented findings and plan of care as noted. Ms. Flynn has pulmonary artery hypertension diagnosed on echocar diography likely related to Sjogren's syndrome. Her PA pressures were in the 60s on the echo cardiogram. She is functional class 2 to 3. We have started a workout for evaluation or for PAH as documented in Dr. Lima's note. We will follow up on the results of these tests and start on treatment. She also has COPD for which we will get full pulmonary function testing and assess the need for further medications. Thank you very much for sending us this wonderf ul patient. Jose Trimble MD. JOSE TRIMBLE MD PULMONARY FACULTY [address] [facility] Mailcode: [id number] [place] [address] Ruth Bledsoe Md D - 0 09/08/2008 5:25 PM PST Date: 09/08/2008 Primary care provider: Antony Ribera MD [facility] [address] [place] [address] Referring provider: Monique [place] NP [address] [place] [address] Pul provider: Dr. Ki Snell [facility], [place], [place] Adriana Flynn is in pulmonary clinic today for initial evaluation of Pulmonary hypertension . Problem List: #Pulm HTN -echo 07/24: PA pr 60-65 (further increased w/ exercise) -labs 07/24: TSH 1.30, bnp 200, lfts nl, d-d 2.64 #Sjogren's syndrome (dx 1995, Rheum Dr. Monte, [place]) -?associated lymphocytic bronchitis (per [facility] notes) #Fibromyalgia #GERD -UGI 05/23: no bowel obstruction, slightly increased transit time, small HH w/ minimal CHINTAN D w/ cough #Asthma #COPD #2nd hand tobacco exposure (significant, from parents) #Chronic rhino sinusitis (s/p multiple sinus surgeries) #Atrial tachycardia -stress echo 2004: neg -s/p ablations (12/18, 09/18) -hx moricizine-> switched to dofetilide 12/21 -stress echo 07/24: +cp, neg ischemia #Hx breast Ca (dx 02/19, right, T1cN0, LN+ x2) -s/p mastectomy 03/22 -s/p chemo: taxotere/cytoxan x4 cycles -currently on Arimidex #Osteopenia -DEXA 08/23: lumbar -2.1, humerus -1.1 #MVP #Diverticular disease/diverticulitis s/p resection #Skin Ca (BCC, back) #Lymphedema R arm #Hx SBO PFTs (Elvis Leal): : FEV1 1.77 FVC 2.98 09/13: Svc 3.41 TLC 5.49, RV 2.07 Dlco 19.67 06/22: FEV/FVC 61 FEV1 1.98 (75%) FVC 3.24 (94%) TLC 5.54 (103%), RV 2.35 (108%) Dlco 18.17 (67%) Past Surgical History Procedure Date Ectopic age 20 Hx appendectomy age 25 Removal adhesion Hx hysterectomy endometriosis, age 46 Bladder tie up age 51 Colon resection, diverticulitis 11/25/02 Pr removal gallbladder 04/07/03 Hx hernia repair 07/28/2003 Liver cyst ruptured 04/30/2004 Liver cyst removed 06/29/2004 Hx carpal tunnel release left wrist Punctum closed (eyes) 40 years old Sinus procedure 1989? Dr. Matt Hinojosa Hx hemorrhoidectomy 1991 Left leg veins 1991 Bunions/hammer toes/neuromas 1998,1999 Dr. Raymond Rose Heart ablation 12/16/2004,09/21/2005 Dr. Fuentes, [facility] Immunizations: Immunization History Name Date(s) Administered Influenza (Flu) 6-35 Mos Preserv Free 04/17/2008 Pneumovax 05/23 HPI/Subjective: Adriana is a 62 yo woman w/ Sjogren's, FM, copd, asthma, severe GERD, who was referred by cards after Pulm HTN was found on recent stress echo. No childhood/young adult lung/heart disease. Developed sob/carrasco along w/ rapid heart rate o yajaira past 6 months. Hx breast ca, w/ last 08/23 chemo [place] taxotere/cytoxan had 2-3 wks of michael re sob at that time. Used combivent/albuterol for good effect at that time. Had been doing well until 6 months ago, when sob/carrasco came back. Palpitations/heart racing started again as well. Saw Elvis Snell and was told that lungs were doin g well. Saw [facility] cards and w/u found Pulm HTN. No hx tob, but parents smoked heavily around her. Hx asthma, dx'd 15 yrs ago, has been on Spiriva and Pulmicort. Hx sinus surgery, multiple times in past 20 yrs. Hx sinus infections. +chronic nasal/sinus congestion, worse during a llergy season. Uses Neilmed irrigations during allergy season. Uses Flonase prn allergies. Wheezes very rarely, especially when talks for a while. Mild daily dry cough, increased a t night especially if lays on right side. No recent abx/pred use. 3 days/wk goes to gym to do weights. Uses stationary recumbent bike 20 min several times/w k. Does some chores, but helps; is limited by cancer surgery muscle degeneration. Can walk up 14 stairs. [place] [address] and notices some increased sx at that altitude. Ov erall gradual decrease in exercise tolerance. [place] FM and [place]jogren's [place] [address] [place] Monte ([facility]). +dry eyes since 23yo; not really dry mouth. +myalgia/arthralgia related to FM. +severe GERD on ppi bid, HOB elevated, stil l has bad sx; +esoph dysmotility seen on prior GI studies; +dysphagia if food is dry. Denie s Raynaud's sx. "breaks out" in temporary rashes intermittently due to nerves or stress. No syncope/pre-syncope. No fhx Pulm HTN, but sister is having problems w/ breathing now. Sis and mother have thyroid disease. Both sisters have FM. No HIV hx. No hx in self or fa be of DVT/PE; did have superficial leg clot w/ chemo for breast Ca. No hx anorexigen use. Mild occasional snoring, no apneas. Has never slept good since chemo. No am HAs. No hx congenital heart defects but was dx's w/ MVP several yrs ago. 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 [address] Sleep Scale: (0=never doze, 1=slight chance, 2=mod chance, 3= high chance) Sitting and reading...0 Watching tv...0 Sitting, inactive in a public place...0 As a passenger in a car for 1 hr w/o a break...1 Lying down to rest in the afternoon...0 Sitting and talking to someone...0 Sitting quietly after lunch...0 In a car, while stopped for a few min in traffic...0 08/08 Allergies: Allergies Allergen Reactions Sulfa (Sulfonamides) Swelling-Facial Ciprofloxacin Hives and Rash Triamterene-hydrochlorothiazid BREAST LUMPS Celebrex (Celecoxib) Diarrhea and Cough Albuterol Tachycardia Flecainide Acetate Rash Intestinal discomfort Propafenone unknown Tape Adherent Rash Current Medications: Current outpatient prescriptions Medication Sig Dispense Refill anastrozole (ARIMIDEX) 1 mg Oral Tablet take 1 tablet (1 mg) by oral route once daily 90 2 atenolol 25 mg Oral Tablet Take 25 mg by mouth once daily. calcium citrate-vitamin D (CITRACAL + D) 315-200 mg-unit Oral Tablet 2 tabs twice a day Docusate Sodium (STOOL SOFTENER) 100 mg Oral Capsule 1 pill by mouth 2 X per day dofetilide 500 mcg Oral Capsule Take 1 Cap by mouth two times daily. 60 1 Fish Oil-DHA-EPA (FISH OIL) 1,200-144-216 mg Oral Capsule one daily FLONASE 50 mcg/Actuation Nasal [place], Suspension Instill 2 Sprays into each nostril onc e daily. furosemide 20 mg Oral Tablet Take 1 Tab by mouth once daily. 30 12 Glucosamine 1,000 mg Oral Tablet one daily ibandronate (BONIVA) 150 mg Oral Tablet once monthly MULTIVITAMIN OR one daily potassium chloride SR 10 mEq Oral Tablet Sustained Release Take 10 mEq by mouth two roxie es daily. PROTONIX 40 mg Oral Tablet, Delayed Release (E.C.) take 1 tablet (40mg) by oral route o nce daily, can take additional tablet in the night if needed 180 3 PULMICORT FLEXHALER 180 mcg/Inhalation Inhalation Aerosol Powdr Breath Activated Inhale 1 Puff two times daily. 2 puffs in the am and 1 puff in the pm RESTASIS OPHT Both eyes twice daily SPIRIVA WITH HANDIHALER 18 MCG & INHALATION CAPS inhale the contents of one capsule (18 mcg) by inhalation route once daily Vitamin A-Vitamin C-Vit E-Min (ANTIOXIDANT FORMULA) Oral Capsule take 1 capsule by oral route once daily with food VITAMIN D ORAL 2000 IU daily FH: Father- heart disease, copd Mother- cardiovasc disease, s/p stents/CABG Brother(s)- DM Sister(s)- FM, asthma, thyroid disease, DM Children- healthy SH: Lives in [facility], [address]/ . 3 kids. See HPI for details. -Tob: see above -Etoh: none -IVDA: none Physical Exam: BP 134/78 | Pulse 77 | Temp (Src) 36.7 C (98 F) (Oral) | Resp 12 | Ht 1.67 m (5' 5.75") | Wt 64.411 kg (142 lb) | SpO2 98% Body mass index is 23.09 kg/(m^2). Oxygen: ROOM AIR (09/08/08 3:44 PM) General: pleasant, NAD, healthy, accompanied by SHANON: Normocephalic Nares: No evidence of nasal erythema, polyps, purulence, congestion or septal deviation Throat: No erythema, exudate, or tonsillar enlargement Neck: No evidence of elevated jugular veins or lymphadenopathy Lungs: mild bb rales, no rhonchi or wheezing, normal percussion and palpation Cardiac: rrr, no m/g/r Abdomen: Normal abdominal bowel sounds; no evidence of hepatosplenomegaly. Non-tender, non- distended Extremities: No cyanosis, clubbing, or edema; no finger ulcers, no sclerodactyly Musculoskeletal: No obvious joint deformities noted Neurologic: Exam grossly non-focal Skin: No evidence of rash or skin changes Lymph nodes: No other lymphadenopathy detected Labs: Lab Results Basename Value Date/Time WBC 6.5 08/14/08 11:11 AM RBC 4.68 08/14/08 11:11 AM HCT 39.5 08/14/08 11:11 AM HB 13.6 08/14/08 11:11 AM MCV 84.5 08/14/08 11:11 AM MCH 27.7 09/05/07 1:45 PM MCHC 34.5 08/14/08 11:11 AM PLT 166 08/14/08 11:11 AM NEUTROPERC 60 08/14/08 11:11 AM LYMPHPERC 31 08/14/08 11:11 AM MONOPERC 7 08/14/08 11:11 AM EOSPERC 1 08/14/08 11:11 AM BASOPERC 1 08/14/08 11:11 AM GLU 84 08/14/08 11:11 AM BUN 9 08/14/08 11:11 AM CR 0.78 08/14/08 11:11 AM TP 6.8 08/14/08 11:11 AM ALB 3.5 08/14/08 11:11 AM CA 9.8 08/14/08 11:11 AM TBILI 1.1 08/14/08 11:11 AM AP 66 08/14/08 11:11 AM AST 25 08/14/08 11:11 AM NA 142 08/14/08 11:11 AM K 4.5 08/14/08 11:11 AM CL 107 08/14/08 11:11 AM BICARB 25 08/14/08 11:11 AM ALT 21 08/14/08 11:11 AM INR (INR) Date Value 08/14/08 1.14 Labs 07/24: Tsh 1.30 BNP 200 D-D 2.64 Radiology: CHEST, 1 VIEW (no units) Date Value Low High Status 04/19/07 Final Value: Radiologist 1: SHAYY TAYLOR MD Portable chest. Comparison 06/28/2004 Left Port-A-Cath tip placed in mid to distal SVC. Lungs are clear. Surgical drains and clips are present in the right axilla. Lungs are clear. No pneumothorax is present. Impression: 1. No pneumothorax with left Port-A-Cath tip in mid to distal SVC. Clear lungs. Abd series 02/20: increased interstitial markings L lung base Pulmonary Function Tests: none today Assessment/Plan: Adriana is a very pleasant 62 yo woman w/ prior dx of Sjogren's syndrome and fibromyalgia, along w/ chronic rhino sinusitis s/p ENT surgeries, severe GERD, COPD/asthma w/ hx 2nd hand smoke exposure, and breast Ca s/p resection and chemo, who is referred for ev al of Pulm HTN found on recent stress echo. 1. Pulm HTN. 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 However, echo is a suboptimal study and she needs a RHC to truly dx PAH. Other than her rheum disease, there are no other apparent associated conditions per her clinical hx or available labs/studies. Review of prior med's (i.e.. Chemo and cardiac med's) does not show any toxicities linked to PAH. With the RHC a vasodilator trial will be done to assess responsiveness and help guide TX; if no response i s seen, this would not be unexpected in the setting of CTD/rheum-associated PAH. I envision that she will be started on oral TX since her functional status is relatively good; initial med's to consider would be calcium channel blockers or endothelin-1 antagonists, depending on her vasodilator response; certainly sildenafil could be added in the future if augmentati on TX is needed. Full labs need to be completed to r/o all other etiologies, in particular rheum serologies to help elucidate her underlying disease; given her severe GERD, she may bhakta ve some CREST features or overlap syndrome w/ possible Sjogren's. PFTs do not show any e/o restriction to suggest ILD, however prior xray has noted possible ILD changes at left base ( classically, Sjogren's is linked w/ LIP). Full HRCT and CTA need to be done to eval ILD and thromboembolic disease, respectively. There is no suggestion of sleep apnea, but nocturnal oximetry study and desat eval at her home altitude need to be done to assess O2 need; pt di d not desat on ambulation around clinic today. PLAN: -schedule RHC w/ vasodilator trial -HRCT w/ insp/exp cuts and CTA -nocturnal oximetry -desat eval at her home altitude -labs: CT, RF, ANCA, CPK, aldolase, HIV, KATE panel, Hep serologies, ssDNA, dsDNA, CCP-> will need to schedule w/ IV therapy since pt is very hard blood draw -full PFTs next visit (jeanette w/ bd, lung vol, dlco, 6MWT) -consideration of coumadin once formal dx made -obtain outside rheum records -may need rheum f/u pending above labs -repeat pneumovax 2012 2. COPD/Asthma/Rhinitis. Significant 2nd hand smoke exposure as a child for many years. Outside Pulm notes comment on possible "lymphocytic bronchitis" related to rheum disease. I am not aware of this dx in relation to Sjogren's. However, LIP (lymphocytic interstitial p neumonitis) is the ILD commonly associated w/ Sjogren's. I am not convinced that the pt has a true dx of asthma. Her cough and perennial rhino sinusitis could be linked to Sjogren's upper airway manifestations. Prior PFTs show moderate obstruction, no restriction, and mild diffusion impairment. The obstruction is most likely related to copd from 2nd hand smoke e xposure, and the low dlco could be related to this copd along w/ Pulm HTN. There is no amari r e/o ILD, so I think that rheum-related lung disease is less likely at this point but defin itely needs further investigation as above. Her severe nocturnal GERD and chronic rhino sin usitis are certainly exacerbating any airway disease. Pt is not on SKIP secondary to her ta chycardias. RECOMMENDATIONS: -full PFTs as above (including jeanette w/ bronchodilator) -consider addition of H2-efren to her ppi regimen for refractory GERD -daily Flonase and Neilmed saline irrigations -cont Spiriva; consider adding LABA to ICS for trial of more aggressive TX of airway disea se, or could also consider stepdown approach and take away ICS (as copd is only moderate a nd there is no convincing e/o reactivity/asthma) -will add AAT level to above labs RTC once above studies done (1-2 months) I spent a total of 60 minutes over half of which were devoted to counseling. RUTH LIMA MD PULMONARY FACULTY [facility] [facility] Mailcode: [id number] [place] [id number] documented in this encoun ter Procedure Notes Other, Faculty - 02/25/2007 12:00 AM PDTAssociated Order(s): RADIOLOGY Electronically sign ed by Faculty Other at 09/08/2008 12:00 AM PSTdocumented in this encounter Miscellaneous Notes Scan - Other, Faculty - 09/29/2008 11:48 AM PDT can - Other, Faculty - 09/17/2008 7:01 AM PST Electronica lly signed by Candida Hernandez In at 09/17/2008 7:01 AM PSTScan - Other, Faculty - 09/15 12:23 PM PST P STScan - Other, Faculty - 09/10/2008 12:00 AM PSTAssociated Order(s): ORDERS OTHER Electron ically signed by Faculty Other at 09/08/2008 12:00 AM PSTScan - Other, Faculty - 09/10/2008 12:00 AM PSTAssociated Order(s): ORDERS OTHER Electronically signed by Faculty Other at 12:00 AM PSTdocumented in this encounter Plan of Treatment + + +--------+ + + | Name | Type | Priori | Associated Diagnoses | Order Schedule | | | | ty | | | + + +--------+ + + | AR RIGHT HEART | Procedures | Routin | Pulmonary | Ordered: 09/08/2008 | | CATHETERIZATION | | e | Hypertension (HCC) | | + + +--------+ + + | O2 SATURATION MULT | Pulmonary | Routin | Pulmonary | Ordered: 09/08/2008 | | DTRM (6 MIN WALK), | Function | e | Hypertension (HCC) | | | PULM FUNCTION LAB | | | | | + + +--------+ + + | CO DIFFUSION | Pulmonary | Routin | Pulmonary | Ordered: 09/08/2008 | | CAPACITY(DLCO), PULM | Function | e | Hypertension (HCC) | | | FUNCTION LAB | | | | | + + +--------+ + + | HEMOGLOBIN, PULM | Lab | Routin | Pulmonary | Ordered: 09/08/2008 | | FUNCTION LAB ONLY | | e | Hypertension (HCC) | | + + +--------+ + + | LUNG VOLUMES / BODY | Pulmonary | Routin | Pulmonary | Ordered: 09/08/2008 | | BOX, PULM FUNCTION | Function | e | Hypertension (HCC) | | | LAB | | | | | + + +--------+ + + | SPIROMETRY BEFORE / | Procedures | Routin | Pulmonary | Ordered: 09/08/2008 | | AFTER BRONCHODIL, | | e | Hypertension (HCC) | | | PULM FUNCTION LAB | | | | | + + +--------+ + + documented as of this encounter Procedures + +--------+ + + + | Procedure Name | Priori | Date/Time | Associated Diagnosis | Comments | | | ty | | | | + +--------+ + + + | ORDERS OTHER | | 09/10/2008 | | Results for this | | | | 12:00 AM | | procedure are in the | | | | PST | | results section. | + +--------+ + + + | ORDERS OTHER | | 09/10/2008 | | Results for this | | | | 12:00 AM | | procedure are in the | | | | PST | | results section. | + +--------+ + + + | RADIOLOGY | | 02/25/2007 | | Results for this | | | | 12:00 AM | | procedure are in the | | | | PDT | | results section. | + +--------+ + + + documented in this encounter Results CYCLIC CITRUL PEPTIDE AB IGG, SERUM (09/10/2008 [...] by | | | | | | [employer],[address] | | | | | | [address], [facility],[place] | | | | | | [address] | | | | | | [phone].[employer]. | | | | | | travis, Mathew Cade, | | | | | | MD [facility]. Director | | | | + + + + + + + + | Specimen | + + | Blood - Blood | + + + + + + + | Performing | Address | City/State/Zipcode | Phone Number | | Organization | | | | + + + + + | [facility] | [address] | [place], [place] | | | [facility] | | [address] | | + + + + + [...] by | | | | | | [employer],[address] | | | | | | [address] [facility], [facility],[place] | | | | | | [address] | | | | | | [phone].[employer]. | | | | | | Mathew [...] [facility] | [address] | [place], [place] | | | [facility] | | [address] | | + + + + + [...] | + + + + + | [facility] | [address] | [place] [address] | | | LABORATORY | | | [...] | + + + + + | [facility] | [address] | [place] [address] | | | LABORATORY | | | [...] | + + + + + | [facility] | [address] | [place] [address] | | | LABORATORY | | | | + + + + + KATE ANTIBODIES IDENTIFICATION, SERUM (09/10/2008 9:11 AM PST) + + + + + + | Component | Value | Ref Range | Performed | Pathologist | | | | | At | Signature | + + + + + + | BRIM STRETCHER AB | Negative | Negative | [facility] [...] | + + + + + | [facility] | [address] | [place] [address] | | | PATHOLOGY | [address] | | | + + + + + | [facility] | [address] | [place] [address] | | | PATHOLOGY | [address] [...] + + | [facility] DEPARTMENT OF | [address] | [place] [address] | | | PATHOLOGY | [address] | | | + + + + + | [facility] | [address] | [place] [address] | | | PATHOLOGY | [address] [...] [facility] | [address] | [place], [place] | | | [facility] | | [address] | | + + + + + [...] | + + + + + | [facility] DEPART[facility] | [address] | [place] [address] | | | PATHOLOGY | [address] | | | + + + + + | [facility] DEPARTMENT [facility] | [address] | [place] [address] | | | PATHOLOGY | [address] [...] | | | | | | Generalized - 92 | | | | | [...] | | | | PROTEASE 3 | [employer],[address] | | | | | | [address], [facility] [place] | | | | | | [address] | | | | | | [phone].[employer]. | | | | | | Mathew robles, | | | | | | - Nevaeh. Director | | | | + + + + + + + + | Specimen | + + | Blood - Blood | + + + + + + + | Performing | Address | City/State/Zipcode | Phone Number | | Organization | | | | + + + + + | [facility] | [address] | [place], [place] | | | [facility] | | [address] | | + + + + + [...] Change effective 08/11/08 | | | [facility] [address] [facility]) [facility] | | | [place] [address] [address] [facility], | | | [place] [address] | | + + + + + + + + | Performing | Address | City/State/Zipcode | Phone Number | | Organization | | | | + + + + + | [facility] | [address] | [place] [address] | | | LABORATORY | | | [...] + + + | Test performed by [facility]. | | + + + + + + + + | Performing | Address | City/State/Zipcode | Phone Number | | Organization | | | | + + + + + | [facility] | [address] | [place] [address] | | | LABORATORY | | | [...] | + + + + + | [facility] | [address] | [place], [place] | | | [facility] | | [address] | | + + + + + ORDERS OTHER (09/10/2008 12:00 AM PST) + + + | Narrative | Performed At | + + + | | | + + + + + | Procedure Note | + + | Other, Faculty - 09/10/2008 12:00 AM PST | + + ORDERS OTHER (09/10/2008 12:00 AM PST) + + + | Narrative | Performed At | + + + | | | + + + + + | Procedure Note | + + | Gisele Strong - 09/10/2008 12:00 AM PST | + + RADIOLOGY (02/25/2007 12:00 AM PDT) + + + | Narrative | Performed At | + + + | | | + + + + + | Procedure Note | + + | Gisele Strong - 02/25/2007 12:00 AM PDT | + + documented in this encounter Visit Diagnoses + + | Diagnosis | + + | Pulmonary hypertension (HCC) - Primary Other chronic pulmonary heart diseases | + + | Sjogren's syndrome (HCC) Sicca syndrome | + + documented in this encounter
--- OUTSIDE RECORDS SUMMARY | ~2020-05-04 | XMS | Encounter Summary ---
Demographics + + + | Address | [address] | | | [place] [address] | + + + | Home Phone | | + + + | Preferred Language | Unknown | + + + | Marital Status | | + + + | Protestant Affiliation | CHR | + + + | Race | White | + + + | Ethnic Group | Not or | + + + Author + + + | Author | [facility] | + + + | Organization | [facility] | + + + | Address | Unknown | + + + | Phone | Unavailable | + + + Support + + + + + | Name | Relationship | Address | Phone | + + + + + | Gene Gee | ECON | [address] | | | | | [place], | | | | | [place] [address] | | + + + + + Care Team Providers + +------+ + | Care Electronics Teacher Name | Role | Phone | + +------+ + | Alec Hill MD | PCP | | + +------+ + Encounter Details +--------+ + + + + | Date | Type | Department | Care Team | Description | +--------+ + + + + | 03/19/ | Document-Sc | [facility] | Tapan Horowitz MD | | | 2020 | anned | [facility] | [address] | | | | | [facility] | [facility], | | | | | [address] | [place] [address] | | | | | [address] | [phone] | | | | | [facility] | | | | | | Physician's | | | | | | [place], | | | | | | [place] [address] | | | | | | [phone] | | | +--------+ + + + [...]
--- OUTSIDE RECORDS SUMMARY | ~2020-05-04 | XMS | Encounter Summary ---
Demographics + + + | Address | [address] | | | [place] [address] | + + + | Home Phone | | + + + | Preferred Language | Unknown | + + + | Marital Status | | + + + | Yazdanism Affiliation | CHR | + + + [...] + | Gene Gee | ECON | [address] | | | | | [place], | | | | | [place] [address] | | + + + + + Care Team Providers + +------+ + | Care Hydramatic Specialist Name | Role | Phone | + +------+ + PCP | Unavailable | + +------+ + Encounter Details +--------+ + + + + | Date | Type | Department | Care Team | Description | +--------+ + + + + | 08/23/ | Office | | Note, Outpatient | [...] as of this encounter Progress Notes Interface, Night Custodian In - 02/12/2005 1:36 AM PDT [id number] [facility]ON[facility]K [facility] Date: 08/23/2004 Clinic: [facility] Diagnoses 1. History of multiple large and symptomatic liver cysts. 1.1. Status post exploratory laparotomy excision and resection of multiple liver cysts, alcohol ablation of the cyst, and marsupialization on June 29, 2004. 1.2. The final pathology on a total of 10 cysts, all were consistent with peribiliary benign cysts. 1.3. The patient had ruptured and bled into one of the largest cysts which was 9.3 x 12.2 cm in size and had been rapidly growing. 1.4. The patient had initial uneventful postoperative course, however represented with partial small bowel obstruction. 2. History of partial small bowel obstruction; discharge on July 07, 2004; and then on s Sarah developed abdominal pain and went to the Emergency Room at a local town in [place]. A CT scan there showed multiple air-fluid levels and no free air. An NG tube was placed. The patient was transferred to [facility] on July 17, 2004. 2.1. The patient underwent bowel decompression with nasogastric suction, n.p.o., Gastrografin, and small-bowel follow-through. The patient's small bowel obstruction was partial and finally resolved with discharge on July 23, 2004. 3. A history of supraventricular tachycardia. 3.1. The patient developed ectopic atrial tachycardia postoperatively in June 2004. At that time, she was placed on antiarrhythmic and was discharged on amiodarone as well as digoxin. The patient was treated with this and has been followed up with Dr. Fuentes at [facility] and Cardiology. She has had discontinuation of her digoxin as well as her amiodarone and placed back on atenolol which she had been on previously. 3.2. The patient plans possible electrophysiology study and ablation in addition to dobutamine stress echo. 4. Sjogren's disease. 5. Mitral valve prolapse. 6. Asthma. 7. Gastroesophageal reflux disease, on therapy. 8. Carpal tunnel syndrome. 9. Fibromyalgia. 10. Fibrocytic breast disease. 11. Esophageal dysmotility syndrome. 12. Temporomandibular joint disease. 13. Status post ectopic that ruptured at age 20, appendectomy at age 25, lysis of adhesions in 2002, status post bladder suspension at age 51, status post laparoscopic cholecystectomy in 2002, status post open hernia repair in 2003 with mesh. 14. Status post left-sided hemicolectomy for diverticulitis, history of hysterectomy at age 46, endometriosis. Medications: Currently on Estrace 0.75 pqzzi-j-fgci patch, atenolol 25 mg q. day, Protonix 40 mg q. day. No longer on digoxin and amiodarone. She is on Combivent, Serevent, Pulmicort, and Flonase. Subjective: The patient returns for interval followup. She was discharged on July 23, 2004, after resolution of her partial small bowel obstruction. She returns with no complaints of any abdominal pain. Her incision has healed nicely. She has had no fever, chills, nausea, or vomiting. She has been quite active and improving her exercise tolerance. Her appetite is good. Her bowel movements are regular, and she has no significant complaints. She is wondering when she can lift above 25 pounds, and we discussed that this would be in 1 more month. She did see Dr. Fuentes on August 09, 2004, to evaluate her SVT and ectopic atrial tachycardia. This discussion was for her to discontinue digoxin and amiodarone and initiate atenolol therapy 25 mg a day. The plan will be to perform electrophysiology study with ablation as it is felt that she has an irritable focus and would benefit from ablation. The plan will be to return in 2 to 3 months to re-discuss this procedure once she is recovered from her liver cystectomy. In addition, she will undergo cardiac risk stratification with dobutamine stress echo, and this will be done in [place]. Physical Examination General: She looks well in no acute distress. She is accompanied by her and her granddaughter, Janae. Vital Signs: Weight is 131.7 pounds, height is 5 feet 6-1/2 inches, blood pressure 104/64, temperature 36.6, pulse 76, and respirations 12. Skin: Without jaundice. HEENT: Sclerae are anicteric. Oral cavity and oropharynx clear. Lungs: Clear bilaterally. Cardiovascular: Regular rhythm and rate. No murmurs or gallops. Abdomen: Soft. She has a well-healed midline scar below her umbilicus and then she has bilateral subcostal incisions with midline extension. This is also well healed. No evidence of hernia. No masses. No organomegaly. No ascites and no tenderness. Extremities: No edema. Neurologic: Nonfocal. Laboratory Data: Pending from today. Plan: The plan will be to continue current medical regimen. She will avoid any heavy lifting above 25 pounds for another month and then she may lift up to 50 pounds at that point. She should continue her current diet and exercise plan with increasing exercise as tolerated. The plan will be to follow up in [facility]atobiliary Clinic in 6 weeks to 2 months and hopefully time this with her followup appointment with Dr. Fuentes for Cardiology. The remainder of her cardiology care will be deferred to Dr. Fuentes, and she will possibly undergo EPS and ablation therapy in the near future. Katie Callahan M.D. Dry Charge Process Attendant Division of Liver and Pancreas Transplantation [facility] / [id number] / [id number] / [id number] / cc: Declan Oates M.D. [address] [place] [address] Saman Ribera M.D. [facility] [address] [place] [address] Bob Reyna M.D. [id number] Electronically signed by Katie Callahan 09-19-2004 05:04:49 PM documented i n this encounter Plan of Treatment Not on filedocumented as of this encounter Visit Diagnoses Not on filedocumented in this encounter"
--- OUTSIDE RECORDS SUMMARY | ~2020-05-04 | XMS | Encounter Summary ---
Demographics + + + | Address | [address] | | | [place] [address] | + + + | Home Phone | | + + + | Preferred Language | Unknown | + + + | Marital Status | | + + + | Taoist Affiliation | CHR | + + + | Race | White | + + + | Ethnic Group | Not or | + + + Author + + + | Author | [facility] | + + + | Organization | [facility] | + + + | Address | Unknown | + + + | Phone | Unavailable | + + + Support + + + + + | Name | Relationship | Address | Phone | + + + + + | Gene Gee | ECON | [address] | | | | | [place], | | | | | [place] [address] | | + + + + + Care Team Providers + +------+ + | Care Shochet Name | Role | Phone | + +------+ + | Alec Hill MD | PCP | | + +------+ + Encounter Details +--------+------+ + + + | Date | Type | Department | Care Team | Description | +--------+------+ + + + | 08/07/ | Lab | Laboratory at [facility] | | Age-related | | 2019 | | [address] | | osteoporosis without | | | | [address] [facility] | | current | | | | [address], [address] floor | | pathological | | | | [place], [place] | | fracture | | | | [address] | | | | | | [phone] | | | +--------+------+ + + + [...] + | VITAMIN D, | Routin | 08/07/2018 | Age-related | Results for this | | 25-HYDROXY, SERUM | e | 4:12 PM | osteoporosis without | procedure are in the | | | | PST | current | results section. | | | | | pathological | | | | | | fracture | | + +--------+ + + + | COMPLETE METABOLIC | Routin | 08/07/2018 | Age-related | Results for this | | SET | e | 4:12 PM | osteoporosis without | procedure are in the | | (NA,K,CL,CO2,BUN,CRE | | PST | current | results section. | | AT,GLUC,CA,AST,ALT,B | | | pathological | | | DANICA TOTAL,ALK | | | fracture | | | PHOS,ALB,PROT TOTAL) | | | | | + +--------+ + + + documented in this encounter Results VITAMIN D, 25-HYDROXY, SERUM (08/07/2018 4:12 PM PST) + +-------+ + + + | Component | Value | Ref Range | Performed | Pathologist | | | | | At | Signature | + +-------+ + + + | VITAMIN D | 47.6 | 30 - 80 ng/mL | [facility] | | | 25 HYDROXY | | | LABORATORY | | | | | | SERVICES, | | | | | | CORE | | + +-------+ + + + + + | Specimen | + + | Blood | + + + + + | Narrative | Performed At | + + + | Reference Interval: 0-18years: Deficiency: <20 ng/mL | [facility] | | Optimum level: >or=20 ng/mL | LABORATORY | | >18years: Deficiency: <20 | SERVICES, CORE | | ng/mL Insufficiency: 20-29 ng/mL | | | Optimum Level: 30-80 ng/mL High: | | | 81-150 ng/ml Toxic: >150 ng/mL | | + + + + + + + + | Performing | Address | City/State/Zipcode | Phone Number | | Organization | | | | + + + + + | [facility] | [address] | [place] [address] | | | SERVICES, CORE | [address] | | | + + + + + COMPLETE METABOLIC SET (NA,K,CL,CO2,BUN,CREAT,GLUC,CA,AST,ALT,BILI TOTAL,ALK PHOS,ALB,PROT TOTAL) (08/07/2018 4:12 PM PST) + +---------+ + + + | Component | Value | Ref Range | Performed | Pathologist | | | | | At | Signature | + +---------+ + + + | GLUCOSE, | 86 | 70 - 99 mg/dL | [facility] | | | PLASMA | | | LABORATORY | | | (LAB) | | | SERVICES, | | | | | | CORE | | + +---------+ + + + | BUN, PLASMA | 17 | 6 - 20 mg/dL | [facility] | | | (LAB) | | | LABORATORY | | | | | | SERVICES, | | | | | | CORE | | + +---------+ + + + | CREATININE | 0.64 | 0.60 - 1.10 | [facility] | | | PLASMA | | mg/dL | LABORATORY | | | (LAB) | | | SERVICES, | | | | | | CORE | | + +---------+ + + + | EGFR | >60 | >60 mL/min | [facility] | | | - | | | LABORATORY | | | MOZAMBICAN | | | SERVICES, | | | | | | CORE | | + +---------+ + + + | EGFR NON | >60 | >60 mL/min | [facility] | | | -JAY | | | LABORATORY | | | RICAN | | | SERVICES, | | | | | | CORE | | + +---------+ + + + | SODIUM, | 142 | 136 - 145 | [facility] | | | PLASMA | | mmol/L | LABORATORY | | | (LAB) | | | SERVICES, | | | | | | CORE | | + +---------+ + + + | POTASSIUM, | 3.9 | 3.4 - 5.0 | [facility] | | | PLASMA | | mmol/L | LABORATORY | | | (LAB) | | | SERVICES, | | | | | | CORE | | + +---------+ + + + | CHLORIDE, | 111 (H) | 97 - 108 mmol/L | [facility] | | | PLASMA | | | LABORATORY | | | (LAB) | | | SERVICES, | | | | | | CORE | | + +---------+ + + + | TOTAL CO2, | 27 | 21 - 32 mmol/L | [facility] | | | PLASMA | | | LABORATORY | | | (LAB) | | | SERVICES, | | | | | | CORE | | + +---------+ + + + | CALCIUM, | 8.9 | 8.6 - 10.2 | [facility] | | | PLASMA | | mg/dL | LABORATORY | | | (LAB) | | | SERVICES, | | | | | | CORE | | + +---------+ + + + | CALCIUM(ALB | 9.2 | 8.6 - 10.2 | [facility] | | | CORRECTED) | | mg/dL | LABORATORY | | | | | | SERVICES, | | | | | | CORE | | + +---------+ + + + | BILIRUBIN | 0.5 | 0.3 - 1.2 mg/dL | [facility] | | | TOTAL | | | LABORATORY | | | | | | SERVICES, | | | | | | CORE | | + +---------+ + + + | TOTAL | 7.2 | 6.4 - 8.2 g/dL | [facility] | | | PROTEIN, | | | LABORATORY | | | PLASMA | | | SERVICES, | | | (LAB) | | | CORE | | + +---------+ + + + | ALBUMIN, | 3.6 | 3.5 - 4.7 g/dL | [facility] | | | PLASMA | | | LABORATORY | | | (LAB) | | | SERVICES, | | | | | | CORE | | + +---------+ + + + | ALK PHOS | 81 | 53 - 141 U/L | [facility] | | | | | | LABORATORY | | | | | | SERVICES, | | | | | | CORE | | + +---------+ + + + | AST(SGOT) | 24 | <=41 U/L | [facility] | | | | | | LABORATORY | | | | | | SERVICES, | | | | | | CORE | | + +---------+ + + + | ALT (SGPT) | 23 | <=60 U/L | [facility] | | | | | | LABORATORY | | | | | | SERVICES, | | | | | | CORE | | + +---------+ + + + | ANION GAP | 4 | 4 - 11 mmol/L | [facility] | | | | | | LABORATORY | | | | | | SERVICES, | | | | | | CORE | | + +---------+ + + + | ANION | 5 | 4 - 11 mmol/L | [facility] | | | GAP(ALB | | | LABORATORY | | | CORRECTED) | | | SERVICES, | | | | | | CORE | | + +---------+ + + + | POTASSIUM | No Hemo | | [facility] | | | CMNT | | | LABORATORY | | | | | | SERVICES, | | | | | | CORE | | + +---------+ + + + | BILI T CMNT | No Hemo | | [facility] | | | | | | LABORATORY | | | | | | SERVICES, | | | | | | CORE | | + +---------+ + + + | AST CMNT | No Hemo | | [facility] | | | | | | LABORATORY | | | | | | SERVICES, | | | | | | CORE | | + +---------+ + + + + + | Specimen | + + | Blood | + + + + + | Narrative | Performed At | + + + | GFR is estimated using the MDRD equation recommended by the | [facility] | | National Kidney Disease Education Program. Estimated GFR | LABORATORY | | Interpretive Information: <60 mL/min/1.73 sq m | SERVICES, CORE | | Chronic Kidney Disease <15 mL/min/1.73 sq m | | | Kidney Failure Estimated GFR greater than 60 mL/min/1.73 sq m is of | | | limited clinical value. The MDRD equation is not valid in the | | | following situations: - Patients under 18 years of age - Severe | | | malnutrition or obesity - Vegetarian diet - Rapidly changing kidney | | | function - Amputees, paraplegics, or other muscle-wasting diseses | | + + + + + + + + | Performing | Address | City/State/Zipcode | Phone Number | | Organization | | | | + + + + + | [facility] | [address] | [place] [address] | | | SERVICES, CORE | [address] | | | + + + + + documented in this encounter Visit Diagnoses + + | Diagnosis | + + | Age-related osteoporosis without current pathological fracture Senile osteoporosis | + + documented in this encounter"
--- OUTSIDE RECORDS SUMMARY | ~2020-05-04 | XMS | Encounter Summary ---
Demographics + + + | Address | [address] | | | [place] [address] | + + + | Home Phone | | + + + | Preferred Language | Unknown | + + + | Marital Status | | + + + | Scientology Affiliation | CHR | + + + [...] + | Gene Gee | ECON | [address] | | | | | [place], | | | | | [place] [address] | | + + + + + Care Team Providers + +------+ + | Care Design Specialist Name | Role | Phone | + +------+ + | Antony Ribera MD | PCP | | + +------+ + Reason for Visit + + + | Reason | Comments | + + + | Postoperative visit | R breast TE exchange to implant and left breast reduction for | | | symmetry. | + + + Global Period - Transplant (Routine) +--------+--------+ [...] | | | | | | | [facility] | | [facility] | | | | | | | [facility], | | | | | | | Building [address], | | | | | | | 5th Floor | | | | | | | [place], [place] | | | | | | | [address] | | | | | | | Phone: | | | | | | | [phone] | +--------+--------+ + + + + Encounter Details +--------+---------+ + + + | Date | Type | Department | Care Team | Description | +--------+---------+ + + + | 10/10/ | Office | Plastic and | Santiago Hu, | Acquired Absence of | | 2012 | Visit | Reconstructive | [address] | Breast (Primary Dx); | | | | Surgery at [facility] [address] | Carcinoma in situ | | | | [address] | [address] [place], [place] | of breast | | | | Mailcode: [id number] | [id number] | | | | | [facility] | | | | | | and Healing, | | | | | | [address], [address]th | | | | | | Floor [place], [place] | | | | | | [address] | | | | | | [phone] | | | +--------+---------+ + + + [...] documented as of this encounter Progress Notes Samm BLACK, Santiago Quintana - 10/14/2012 8:02 AM PDTPlastic and Reconstructive Surgery Post-operative Visit POD# 7 days HPI: Adriana Flynn is a 67 y.o. female who presents today status-post right breast tissue expand er removal with placement of silicone implants, right breast capsulotomy and lateral capsulo rrhaphy, left breast mastopexy for symmetry on 10/04/12. She has concerns about the discolor ation of the left nipple and the swelling of the upper pole of the left breast. Pt reports t hat the color of the nipple has improved since d/c from the hospital. Her pain control is go od. She is currently taking Vicodin for pain. Here today for postop visit. ROS: Constitutional: denies fever, chills, or fatigue. Chest: denies increased pain, swelling, or redness. Has discoloration of the left nipple. H as increased swelling upper pole left breast. Resp: denies trouble breathing. LE: denies calf pain or swelling. PE: Vitals: There were no vitals taken for this visit. General Appearance: Well-developed, well-nourished female in no apparent distress. Chest: right breast is healing well there is decreasing ecchymosis and swelling. Left breas t swollen with noreen in the upper pole, area is firm and NT to palp c/w a hematoma. The left n ipple has a slight downward projection from the swelling. Left NAC is slightly darker than p ink no necrosis, well perfused, and viable. Incisions are clean, dry, intact, and edges well approximated. No clinical e/o infection or skin necrosis. No ballotable fluid collections. Impression: Status-post right breast tissue sports cartoonist removal with placement of silicone implants, right breast capsulotomy and lateral capsulorrhaphy, left breast mastopexy for symmetry Suspected hematoma upper pole left breast Plan: -Anticipate color to improve of the left nipple. Instructed to continue monitoring and if w orsening then call with immediate concerns. -Instructed to monitor for worsening sxs of the left breast and call with immediate concern s. -Continued incision care with daily cleanings and bacitracin at drain sites. Observe for sx s of infection and call immediately prn. -Pt will follow up as scheduled with Mark Gold MD, sooner prn. The patient indicates understanding of these issues and agrees to the plan. SANTIAGO HU PA-C Dept of Plastic/Reconstructive Surgery [facility] Electronically signed on 10/14/2012 at 8:02 AM SANTIAGO HU PA-C. 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
--- OUTSIDE RECORDS SUMMARY | ~2020-05-04 | XMS | Encounter Summary ---
Demographics + + + | Address | [address] | | | [place] [address] | + + + | Home Phone | | + + + | Preferred Language | Unknown | + + + | Marital Status | | + + + | Anabaptism Affiliation | CHR | + + + | Race | White | + + + | Ethnic Group | Not or | + + + Author + + + | Author | [facility] | + + + | Organization | [facility] | + + + | Address | Unknown | + + + | Phone | Unavailable | + + + Support + + + + + | Name | Relationship | Address | Phone | + + + + + | Gene Gee | ECON | [address] | | | | | [place], | | | | | [place] [address] | | + + + + + Care Team Providers + +------+ + | Care Chief Dietitian Name | Role | Phone | + +------+ + | Alec Hill MD | PCP | | + +------+ + Encounter Details +--------+ + + + + | Date | Type | Department | Care Team | Description | +--------+ + + + + | 08/07/ | MyChart | [facility] | Tapan Horowitz MD | labs | | 2019 | Encounter | [facility] | [address] | | | | | [facility] | [address] [place], | | | | | [address] | [place] [address] | | | | | [address] | [phone] | | | | | [facility] | | | | | | Physician's | | | | | | [place], | | | | | | [place] [address] | | | | | | [phone] | | | +--------+ + + + [...]
--- OUTSIDE RECORDS SUMMARY | ~2020-05-04 | XMS | Encounter Summary ---
Demographics + + + | Address | [address] | | | [place] [address] | + + + | Home Phone [...] + + + | Author | [facility] | + + + | Organization | [facility] | + + + | Address | Unknown | + + + | Phone | Unavailable | + + + Support + + + + + | Name | Relationship | Address | Phone | + + + + + | Gene Gee | ECON | [address] | | | | | [place], | | | | | [place] [address] | | + + + + + Care Team Providers + +------+ + | Care Forest Products Gatherer Name | Role | Phone | + +------+ + | Antony Ribera MD | PCP | | + +------+ + Reason for Visit Diagnostic Testing (Routine) +--------+--------+ + + + + | Status | Reason | Specialty | Diagnoses / | Referred By | Referred To | | | | | Procedures | Contact | Contact | +--------+--------+ + + + + | Closed | | Cardiology | | [place], | [facility] | | | | | | Monique Quintana NP | [facility] | | | | | | [address] | | | | [address] | [address] | | | | | | [place], [place] | Mailcode: | | | | | | [address] | [id number] | | | | | | | Outpatient | | | | | | | Clinic | | | | | | | [facility] | | | | | | | [place], [place] | | | | | | | [address] | | | | | | | Phone: | | | | | | | [phone] | +--------+--------+ + + + + Encounter Details +--------+ + + + + | Date | Type | Department | Care Team | Description | +--------+ + + + + | 08/14/ | Hospital | Cardiac | | | | 2009 | Encounter | Non-Invasive Testing | | | | | | at [facility] | | | | | | [address] | | | | | | [address] [facility] | | | | | | [facility], 2nd | | | | | | floor [place], [place] | | | | | | [address] | | | | | | [phone] | | | +--------+ + + + [...] +---------+--------+ + documented as of this encounter Progress Notes Sissy Curtis (Thomas), RN - 08/14/2008 3:59 PM PSTAt 14:25, prior to beginning the procedure the team paused to verify the patients identity as well as the procedure to be per formed. All the equipment required was ready and available. The following team members joseph garcía present during the team pause Jose Caraballo MD, Bradley Curtis RN. ortBradley cardenas - 08/14/2008 3:28 PM PSTStress echocardiogram completed. Final report to follow. documented in this enco unter Procedure Notes Other, Faculty - 08/14/2008 12:00 AM PSTAssociated Order(s): STRESS DOBUTAMINE ECHOCARDIOGR AM, ADULT; STRESS DOBUTAMINE ECHOCARDIOGRAM, ADULT documented in this encounter Miscellaneous Notes Scan - Other, Faculty - 08/14/2008 12:00 AM PST documented in this encounter Plan of Treatment Not on filedocumented as of this encounter Procedures + +--------+ + + + | Procedure Name | Priori | Date/Time | Associated Diagnosis | Comments | | | ty | | | | + +--------+ + + + | STRESS DOBUTAMINE | | 08/14/2008 | | Results for this | | ECHOCARDIOGRAM, | | 12:00 AM | | procedure are in the | | ADULT | | PST | | results section. | + +--------+ + + + documented in this encounter Results STRESS DOBUTAMINE ECHOCARDIOGRAM, ADULT (08/14/2008 12:00 AM PST) + + + | Narrative | Performed At | + + + | | | + + + + + | Procedure Note | + + | Gisele Strong - 08/14/2008 12:00 AM PST | + + documented in this encounter Visit Diagnoses + + | Diagnosis | + + | Dyspnea Other dyspnea and respiratory abnormality | + + documented in this encounter"
--- OUTSIDE RECORDS SUMMARY | ~2020-05-04 | XMS | Encounter Summary ---
Demographics + + + | Address | [address] | | | [place] [address] | + + + | Home Phone [...] + + + | Author | [facility] | + + + | Organization | [facility] | + + + | Address | Unknown | + + + | Phone | Unavailable | + + + Support + + + + + | Name | Relationship | Address | Phone | + + + + + | Gene Gee | ECON | [address] | | | | | [place], | | | | | [place] [address] | | + + + + + Care Team Providers + +------+ + | Care Oracle Ebs Architect Name | Role | Phone | + +------+ + | Antony Ribera MD | PCP | | + +------+ + Reason for Visit + +--------+ + | Reason | Onset | Comments | | | Date | | + +--------+ + | Follow-up visit | 09/18/ | | | | 2008 | | + +--------+ + Encounter Details +--------+ + + + + | Date | Type | Department | Care Team | Description | +--------+ + + + + | 09/18/ | Telephone | Pulmonary & | Ruth Hernandez, | Follow-up visit | | 2008 | | Critical Care | MD | | | | | Medicine at | | | | | | [facility] | | | | | | [address] | | | | | | [facility] | | | | | | [facility], 3rd Floor | | | | | | [place], [place] | | | | | | [address] | | | | | | [phone] | | | +--------+ + + + [...] this encounter Miscellaneous Notes Telephone Encounter - Cecy Zapata - [id number] Message: patient called to let Dr. Hernandez know that the echo results are ready for review. I did let the patient know that Dr. Hernandez has reviewed the results and has documeted a plan for the patient in her chart. Dr. Hernandez will contact the patient to dicuss the results and plan. LAST APPOINTMENT: 09/08/08 at 3:15 pm LAST PCP (Antony Ribera MD) APPOINTMENT: No past encounter found with . NEXT APPOINTMENT: No future appointments scheduled in Pulmonary Disease. NEXT PCP (Antony Ribera MD) APPOINTMENT: No future appointments scheduled with . Patient's pharmacy has been verified: Yes documented in this encount er Plan of Treatment Not on filedocumented as of this encounter Visit Diagnoses Not on filedocumented in this encounter"
--- OUTSIDE RECORDS SUMMARY | ~2020-05-04 | XMS | Encounter Summary ---
Demographics + + + | Address | [address] | | | [place] [address] | + + + | Home Phone | | + + + | Preferred Language | Unknown | + + + | Marital Status | | + + + | Christian Affiliation | CHR | + + + [...] + | Gene Gee | ECON | [address] | | | | | [place], | | | | | [place] [address] | | + + + + + Care Team Providers + +------+ + | Care Test Car Driver Name | Role | Phone | + +------+ + | Antony Ribera MD | PCP | | + +------+ + Reason for Referral Consultation (Routine) +--------+--------+ + + + + | Status | Reason | Specialty | Diagnoses / | Referred By | Referred To | | | | | Procedures | Contact | Contact | +--------+--------+ + + + + | Closed | | Bone | Diagnoses | Marcus | [facility] | | | | Densitometry | Breast | Stevan aRzo, | [facility] | | | | | cancer (HCC) | [address] | | | | | Procedures | [address] | [address] | | | | | CONSULT TO | [place], [place] | [place] [facility] | | | | | BONE | [address] | Health and | | | | | DENSITOMETRY | Phone: | Healing, | | | | | | [phone] | [address] | | | | | | Fax: | [place], [place] | | | | | | [phone] | [address] | | | | | | | Phone: | | | | | | | [phone] | | | | | | | Fax: | | | | | | | [phone] | +--------+--------+ + + + + Reason for Visit + + + | Reason | Comments | + + + | Chemotherapy | | + + + | Follow-up encounter | | + + + Encounter Details +--------+---------+ + + + | Date | Type | Department | Care Team | Description | +--------+---------+ + + + | 08/15/ | Office | Hematology/Medical | Stevan Velazquez, | Breast Cancer (HCC) | | 2007 | Visit | Oncology at [facility] | MD [address] | (Primary Dx) | | | | [address] | [place], [place] | | | | | Mailcode: [facility] | [address] | | | | | [facility] | [phone] | | | | | and Healing, | | | | | | [facility] | | | | | | Floor [facility] [place] | | | | | | [address] | | | | | | [phone] | | | +--------+---------+ + + + [...] + + + | Blood Pressure | 118/64 | 08/15/2007 9:59 AM | | | | | PST | | + + + + + | Pulse | 74 | 08/15/2007 9:59 AM | | | | | PST | | + + + + + | Temperature | 36.2 C (97.1 F) | 08/15/2007 9:59 AM | | | | | PST | | + + + + + | Respiratory Rate | 12 | 08/15/2007 9:59 AM | | | | | PST | | + + + + + | Oxygen Saturation | - | - | | + + + + + | Inhaled Oxygen | - | - | | | Concentration | | | | + + + + + | Weight | 67.9 kg (149 lb 11.1 | 08/15/2007 9:59 AM | | | | oz) | PST | | + + + + + | Height | 167.6 cm (5' 6") | 08/15/2007 9:59 AM | | | | | PST | | + + + + + | Body Mass Index | 24.16 | 08/15/2007 9:59 AM | | | | | PST | | + + + + + documented in this encounter Progress Notes Stevan Velazquez - 08/15/2007 10:27 AM PSTFormatting of this note might be different from zachariah tamez. Adriana is a pleasant 61-year-old female with a history of right-sided breast cancer. 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 Tumor was grade 1 to grade 2, receptor positive, and HER-2 negative for gene amplification by FISH. Two axillary lymph nodes were involved with isolated tumor cells only. Completion axillary lymph node dissection found no additional lymph node involvement. Oncotype testing sees low recurrence score with endocrine therapy. Adriana however is interested in aggressive management of her cancer, including chemotherapy. She is currently receiving adjuvant chemo with Taxotere and cytoxan every three weeks. Today she i s in for her fourth cycle of treatment. She has a number of co-morbidities which include Atrial tachyarrythmia, multiple abd surger y for bowel resection, h/o SBO, sjogren's syndrome with dry eyes. S Two days after her last chemotherapy treatment---she developed superficial thrombophlebiti s over left inner upper leg-- three inches in length-- she used hot compress, elevation but no pain med. The area has since gotten a lot better. The area was initially erythematous w hich now is only left with black and bruise. Adriana has a long history of varicose vein. Ther e was No ankle swelling. Outside Doppler negative for DVT. No fever or chills or night sweat. Ativan half a tab nightly for sleep. Benadryl did not wo rk as well. Worried about upcoming chemo but quite anxious to get it all done with. No recurrent palpitation. Atenolol for the first five days to 75mg po daily, now down to 2 5mg daily. Increased ethmozine from 200 to 250 at day five for one week but now back down to 200 mg daily. A few episodes of brief palpitation lasting 1-2 seconds around the time she m dilan the switch of increasing ethmozine. Currently she is on ethmozine back down to 200 mg d aily plus atenolol 25 mg daily. No chest pain, legs tired at the end of the day. Work out on the bike 25minutes daily. Phy sically active. Feel right arm tighter no swelling-- PT to resume. Appetite well and eats well. No numbness or tingling. No oral sores. Dry eyes better-- restasis worked well. Daily BM, soft with stool softener No headache, Mood good except with steroid which makes her agitated. No numbness or tingling sensation. Overall feeling good. O: Filed Vitals: 08/15/2007 9:59 AM BP: 118/64 Pulse: 74 Temp: 97.1 F (36.2 C) TempSrc: Oral Resp: 12 Height: 1.676 m (5' 6") Weight: 67.9 kg (149 lbs 11.1 oz) Alert and oriented Not in acute distress No oral lesion, no sinus tenderness Neck supple, no JVE Chest symmetric expansion, no wheezing or rales Heart regular rhythm, no murmur or gallop Abd, soft and non tender, no liver or spleen palpable. No increased rigidity or rebound ten derness Ext, no cyanosis or clubbing or edema No knocking pain down spinal column, no CVA tenderness Lymphatics, no cervical, supraclav, infraclav, or axillary LADs. Port site is clean Excellent ROM over right shoulder, No right arm swelling A 3 inch long segment of varicose vein with overlying skin pigmentation. No tenderness or s welling or increased local heat. Neuro exam is intact. Component Reference Range 08/15/2007 WBC POC (ADULT) 3.4-10 K/mm:3 8.7 LYMPH# POC (ADULT) 1.6-2.6 1.9 LYMPH% POC (ADULT) 26-41 % 21.7 (A) MID-RANGE# POC (ADULT) 0-2 0.6 MID-RANGE% POC (ADULT) 7-15 % 6.9 (A) NEUTROPHIL# POC (ADULT) 2.2-5.2 6.2 (A) NEUTROPHIL% POC (ADULT) 48-65 % 71.4 (A) RBC POC (ADULT) 3.8-5.2 M/mm:3 4.18 HGB POC (ADULT) 12.2-15 g/dL 11.6 (A) HCT POC (ADULT) 37-46.5 % 34.8 (A) MCV POC (ADULT) 85-95 fL 83.3 (A) MCH POC (ADULT) 29-32 pg 27.8 (A) MCHC POC (ADULT) 32.6-33.9 g/dL 33.3 RDW POC (ADULT) 11.5-15 % 17.7 (A) PLT POC (ADULT) 150-420 K/mm:3 255 MPV POC (ALL AGE) 7.4-10.4 fL 10.3 SODIUM, CMP POC 133-141 mmol/L 146 (A) POTASSIUM, CMP POC 3.6-5 mmol/L 4.2 TOTAL CO2, CMP POC 24-30 mmol/L 28 CHLORIDE, CMP POC 97-104 mmol/L 111 (A) GLUCOSE, CMP POC 65-110 mg/dL 73 CALCIUM TOTAL, CMP POC 8.8-10.9 mmol/L 8.7 (A) BUN, CMP POC 6-20 mg/dL 14 CREATININE, CMP POC 0.6-1.1 mg/dL 0.7 ALK PHOS, CMP POC 42-98 U/L 56 ALT, CMP POC 13-48 U/L 30 AST, CMP POC 15-41 U/L 27 BILIRUBIN TOTAL, CMP POC 0.3-1.2 mg/dL 0.6 ALBUMIN, CMP POC 3.4-4.4 g/dL 3.8 PROTEIN TOTAL, CMP POC 6.3-8 g/dL 6.9 A/P Adriana is a 61 y/o WF s/p right sided mastectomy, sentinel node mapping and completion LN di ssection for T1C N0 grade 1-2 IDC. Two sentinel nodes involved with isolated tumor cells onl y. Oncotype testing done on primary tumor showed lower recurrence score-- i.e. Low risk of r ecurrence with tamoxifen treatment. Adriana however is concerned that the instrument might not be entirely accurate and she wants to do everything possible to decrease the risk of cancer recurrence. If she does not do chemo, she would be worried for the rest of her life. We had multiple discussions in the past. I believe chemo will have modest benefit for her. We need to however be very careful in monitoring and treating her for the development of any potent ial side effects, which can easily negate the benefit of chemo. Today she is in for her last and final taxotere and cytoxan treatment. She had increased in her palpitation which is helped with increasing dose of atenolol and ethmozine, now she is back down her baseline dosing. She is taking potassium rich diet. Plan is for her to increas e her cardiac med for one week and atenolol in necessary to help with rhythm control. She is having more fatigue but not more so than expected. No numbness of tingling or motor weakness. Her superficial vein inflammation is quieting down with symptomatic management. We ight gain of several pounds but no lower ext edema. Dry eyes getting better with eye drop. Will proceed with chemo today. Return to clinic in three weeks for discussion on hormone therapy. Will obtain bone density study. Dr. Heart will plan on port removal after chemo is done-- 3-4 weeks post last chemo. I will discuss with cardiologists regarding potential drug interaction with arimidex. LANA VELAZQUEZ MD, PhD HEMATOLOGY ONCOLOGY [address] [facility], [address] [place] [id number] documented in this encoun ter Plan of Treatment Not on filedocumented as of this encounter Visit Diagnoses + + | Diagnosis | + + | Breast cancer (HCC) - Primary Malignant neoplasm of breast (female), unspecified site | + + documented in this encounter
--- OUTSIDE RECORDS SUMMARY | ~2020-05-04 | XMS | Encounter Summary ---
Demographics + + + | Address | [address] | | | [place] [address] | + + + | Home Phone | | + + + | Preferred Language | Unknown | + + + | Marital Status | | + + + | Confucianism Affiliation | CHR | + + + | Race | White | + + + | Ethnic Group | Not or | + + + Author + + + | Author | [facility] | + + + | Organization | [facility] | + + + | Address | Unknown | + + + | Phone | Unavailable | + + + Support + + + + + | Name | Relationship | Address | Phone | + + + + + | Gene Gee | ECON | [address] | | | | | [place], | | | | | [place] [address] | | + + + + + Care Team Providers + +------+ + | Care Procurement Consultant Name | Role | Phone | + +------+ + | Antony Ribera MD | PCP | | + +------+ + Reason for Visit + +--------+ + | Reason | Onset | Comments | | | Date | | + +--------+ + | Prescription | 01/25/ | | | | 2015 | | + +--------+ + Encounter Details +--------+ + + + + | Date | Type | Department | Care Team | Description | +--------+ + + + + | 01/25/ | Telephone | Pulmonary & | Dez Hansen, | Prescription | | 2016 | | Critical Care | ,PhD [address] [facility] | | | | | Medicine at | [facility] | | | | | [facility] | [place], [place] | | | | | [address] | [address] | | | | | [facility] | [phone] | | | | | [facility], [address]rd Floor | | | | | | [place], [place] | | | | | | [address] | | | | | | [phone] | | | +--------+ + + + [...] this encounter Miscellaneous Notes Telephone Encounter - PremaJenny AIDE - 01/26/2016 10:02 AM SANTANAJet from [facility] thom mcdaniel calling to follow up on a prescription request that was faxed to the office yesterday elvis or Rodger. She states that the request needs to be signed and faxed back preferable today or tomorrow. documented in this encounter Plan of Treatment Not on filedocumented as of this encounter Visit Diagnoses Not on filedocumented in this encounter"
--- OUTSIDE RECORDS SUMMARY | ~2020-05-04 | XMS | Encounter Summary ---
Demographics + + + | Address | [address] | | | [place] [address] | + + + | Home Phone | | + + + | Preferred Language | Unknown | + + + | Marital Status | | + + + | Roman Catholic Affiliation | CHR | + + + | Race | White | + + + | Ethnic Group | Not or | + + + Author + + + | Author | [facility] | + + + | Organization | [facility] | + + + | Address | Unknown | + + + | Phone | Unavailable | + + + Support + + + + + | Name | Relationship | Address | Phone | + + + + + | Gene Gee | ECON | [address] | | | | | [place], | | | | | [place] [address] | | + + + + + Care Team Providers + +------+ + | Care Commercial Carpenter Name | Role | Phone | + +------+ + | Antony Ribera MD | PCP | | + +------+ + Reason for Visit + + + | Reason | Comments | + + + | Follow-up visit | | + + + Office Visit - E/M Services (Routine) +--------+--------+ + + + + | Status | Reason | Specialty | Diagnoses / | Referred By | Referred To | | | | | Procedures | Contact | Contact | +--------+--------+ + + + + | Closed | | Cardiology | | Sitz, | Gary Fuentes, | | | | | | Antony | [address] | | | | | | MD Saman | [address] | | | | | | [place] | [address] | | | | | | INTERNAL | [place], [place] | | | | | | MEDICINE | [address] Phone: | | | | | | [address] | [phone] | | | | | | [facility] | Fax: | | | | | | [address] | [phone] | | | | | | [place], | | | | | | | [place] [address] | | | | | | | Phone: | | | | | | | [phone] | | | | | | | Fax: | | | | | | | [phone] | | +--------+--------+ + + + + Encounter Details +--------+---------+ + + + | Date | Type | Department | Care Team | Description | +--------+---------+ + + + | 10/20/ | Office | Cardiology | Gary Fuentes MD | Atrial tachycardia | | 2010 | Visit | Arrhythmia at [facility] | [address] | 427.89; Chest pain | | | | [address] | [address] [place], | | | | | [facility] | [place] [address] | | | | | and Healing, | [phone] | | | | | Building | | | | | | Floor [place], [place] | | | | | | [address] | | | | | | [phone] | | | +--------+---------+ + + + Social History + +-------+ +--------+------+ | Tobacco Use | Types | Packs/Day | Years | Date | | | | | Used | | + +-------+ +--------+------+ | Never Smoker | | | | | + +-------+ +--------+------+ + + | Comments: nonsmoker/parents smoked | [...] + + + | Blood Pressure | 118/72 | 10/20/2010 11:33 AM | | | | | PDT | | + + + + + | Pulse | 68 | 10/20/2010 11:33 AM | | | | | PDT | | + + + + + | Temperature | - | - | | + + + + + | Respiratory Rate | - | - | | + + + + + | Oxygen Saturation | 97% | 10/20/2010 11:33 AM | | | | | PDT | | + + + + + | Inhaled Oxygen | - | - | | | Concentration | | | | + + + + + | Weight | 67.6 kg (149 lb) | 10/20/2010 11:33 AM | | | | | PDT | | + + + + + | Height | 167 cm (5' 5.75") | 10/20/2010 11:33 AM | | | | | PDT | | + + + + + | Body Mass Index | 24.23 | 10/20/2010 11:33 AM | | | | | PDT | | + + + + + documented in this encounter Patient Instructions Patient Instructions Gary Fuentes MD - 10/20/2010 12:44 PM PDTYour arrhythmia is fairly stab ile. I would not make changes at this time. If chest pain, becomes more frequent,will consider a Nuclear study or coronary angiogram. I'll see you back in 6 months. documented in this encounter Progress Notes Gary Fuentes MD - 10/20/2010 12:08 PM PDT OUTPATIENT FOLLOW UP ID: Adriana Flynn is a 64 y.o. female with PMH of fibromyalgia, sjogren's dz, multiple SBO's, a nd atrial tachycardia s/p ablation in 12/2004 and 09/2005, initially on morizicine, then switc hed to dofetilide in 12/2007. She presents for followup visit for her atrial tachycardia. Sh raquel has occasional palpitations. She's had intermittent chest pain, which was exacerbated by a rib injury. Her palpitations get worse if she misses an Atenolol dose. She gets chest pain when she wakes up in the morning approximately 3 times a week. For the most part the pain is non radiating and non exertional. ROS: Her GI sx's have been very stable for the past year on Benefiber. Recent problems with allergies. Past Medical History Diagnosis Date Sjogrens syndrome 1995 Fibromyalgia 1995 Mitral valve prolapse 1989 GERD (gastroesophageal reflux disease) 1995 Asthma 1999 TMJ (dislocation of temporomandibular joint) Fibrocystic disease of breast 1978 Diverticul disease small and large intestine, no perforati or abscess Skin cancer back Small bowel obstruction 07/20,10/19,02/19 Atrial tachycardia 07/20 Bursitis 2005 Plantar fascial fibromatosis 2006 plantar fascial tear Osteopenia 12/30/2007 Breast cancer 02/2007 s/p chemo with taxotere/cytoxan Outpatient Medications: anastrozole (ARIMIDEX) 1 mg Oral Tablet, Take 1 Tab by mouth once daily. atenolol 50 mg Oral Tablet, Take 25 mg by mouth two times daily. 1/2 tablet twice daily budesonide (PULMICORT FLEXHALER) 180 mcg/Inhalation Inhalation Aerosol [facility] Breath Activat ed, Inhale 1 Puff two times daily. 2 puffs in the am and 1 puff in the pm calcium citrate-vitamin D (CITRACAL + D) 315-200 mg-unit Oral Tablet, 2 tabs in evening / l iquid calcium citrate in AM DOFETILIDE 500 mcg Oral Capsule, Take 1 Cap by mouth two times daily. fluticasone (FLONASE) 50 mcg/Actuation Nasal [place], Suspension, Instill 2 Sprays into each nostril once daily. Glucosamine 1,000 mg Oral Tablet, one daily MULTIVITAMIN OR, one daily polyethylene glycol 17 gram/dose Oral Powder, Take 17 g by mouth once daily. potassium chloride SR 20 mEq Oral Tab Sust.Rel. Particle/Crystal, Take 1 Tab by mouth once daily. Please dispense as K-dur- other preparations do not get absorbed properly rabeprazole (ACIPHEX) 20 mg Oral Tablet, Delayed Release (E.C.), Take 20 mg by mouth once d aily. tiotropium (SPIRIVA WITH HANDIHALER) 18 mcg Inhalation Capsule, w/Inhalation Device, Inhale 1 Cap once daily. tramadol (ULTRAM) 50 mg Oral Tablet, Take 1 Tab by mouth every six hours as needed for mode rate pain. Vitamin A-Vitamin C-Vit E-Min (ANTIOXIDANT FORMULA) Oral Capsule, take 1 capsule by oral ro hillary once daily with food VITAMIN D ORAL, 2000 IU daily zoledronic acid (RECLAST) 5 mg/100 mL Intravenous Solution, Inject into the vein (IV). Yea rly (Not in a hospital admission) Allergies Allergen Reactions Sulfa (Sulfonamides) Swelling-Facial Ciprofloxacin Hives and Rash Triamterene-hydrochlorothiazid BREAST LUMPS Celebrex (Celecoxib) Diarrhea and Cough Albuterol Tachycardia Flecainide Acetate Rash Intestinal discomfort Propafenone unknown Crestor (Rosuvastatin Calcium) muscle/Jt Pain Zetia (Ezetimibe) Nausea/Vomiting Kapidex (Dexlansoprazole) Lactose Tape Adherent Rash ROS: Gen:no f/c/ns CV: per hpi, no leg swelling/exertional chest pain or worsening SOB. PULM: no cough GI: per hpi All other review of systems negative Physical Exam: BP 118/72 | Pulse 68 | Ht 1.67 m (5' 5.75") | Wt 67.586 kg (149 lb) | SpO2 97% | BMI 24.23 kg/(m^2) General Appearance: pleasant, NAD, AAO x 3 HEENT: sclera anicteric, MM moist, conj pink Neck: no thyromegaly, no lymphadenopathy, JVP not elevated @ 30degrees Respiratory: CTA bilaterally Cardiovascular: regular, no murmurs Gastrointestinal: soft, nt, nd, bs + Extremitites: wwp, no edema Data: Lab Results Component Value Date CHOL Combined. 12/29/2008 LDL 130* 12/29/2008 HDL Combined. 12/29/2008 TRI Combined. 12/29/200811/2009: TC-224 LDL-160 HDL-45 TG-95 Impression: Adriana Flynn is a 64 y.o. female with PMH of atrial tachycardia s/p 2 ablation attempt wh o presents for followup visit. She is doing well and having minimal symptoms. She does have chest pain which may require further evaluation. A CT Coronary may be helpful, but she has had multiple CT's in the past, and would like to avoid the radiation dose if possible. 1. Atrial Tachycardia: -continue dofetilide. No medication adjustments at this time. -needs repeat ECG at next f/u visit 2. Nonanginal Chest pain: Low suspicion that this pain represents angina given character as described in HPI. She do es have HLD and famhx of heart disease. Reassuringly she had a normal stress echo last year . At this point advised her to monitor. If symptoms worsen or become more frequent or conc erning in character could consider further eval with Nuclear study or angiogram documented in this encount er Miscellaneous Notes Scan - Unknown - 10/20/2010 12:00 AM PDT documented in this encounter Plan of Treatment Not on filedocumented as of this encounter Visit Diagnoses + + | Diagnosis | + + | Atrial tachycardia 427.89 Other specified cardiac dysrhythmias | + + | Chest pain Chest pain, unspecified | + + documented in this encounter
--- OUTSIDE RECORDS SUMMARY | ~2020-05-04 | XMS | Encounter Summary ---
Demographics + + + | Address | [address] | | | [place] [address] | + + + | Home Phone | | + + + | Preferred Language | Unknown | + + + | Marital Status | | + + + | Adventist Affiliation | CHR | + + + | Race | White | + + + | Ethnic Group | Not or | + + + Author + + + | Author | [facility] | + + + | Organization | [facility] | + + + | Address | Unknown | + + + | Phone | Unavailable | + + + Support + + + + + | Name | Relationship | Address | Phone | + + + + + | Gene Gee | ECON | [address] | | | | | [place], | | | | | [place] [address] | | + + + + + Care Team Providers + +------+ + | Care Faculty Dean Name | Role | Phone | + +------+ + | Antony Ribera MD | PCP | | + +------+ + Reason for Visit +--------+--------+ + | Reason | Onset | Comments | | | Date | | +--------+--------+ + | Other | 02/12/ | | | | 2012 | | +--------+--------+ + Encounter Details +--------+ + + + + | Date | Type | Department | Care Team | Description | +--------+ + + + + | 02/12/ | Telephone | Plastic and | Alla Binubrandy | Other | | 2012 | | Reconstructive | MD Manda [address] | | | | | Surgery at [facility] [address] | | | | | [facility] | [address] [place], [place] | | | | | for Health and | [id number] | | | | | Healing, [address], | | | | | | 5th Floor | | | | | | [facility] [place] | | | | | | [address] | | | | | | [phone] | | | +--------+ + + + [...] this encounter Miscellaneous Notes Telephone Encounter - Simran Roque MA - 02/12/2013 11:55 AM PDTI explained to Miss Deric cole that her right nipple recon should take approximately an hour to complete. I provided he r with some information on how the procedure is performed. All patients questions were answe red and she was instructed to contact us with any further questions or concerns. Next Appointment in [facility] is on 03/05/13 at 6:00 pm with Errol Gold MD. elephone Encounter - Florinda Chase - 02/12/2013 11:47 AM PDTPatient is scheduled for right nipple recons truction on 03/05 w/Dr. Gold and she wants to know what all is involved in this procedure a nd what approach is taken? She forgot to ask Dr. Gold at her last visit.Electronically sig elenita by Florinda Chase at 02/12/2013 11:49 AM PDTdocumented in this encounter Plan of Treatment Not on filedocumented as of this encounter Visit Diagnoses Not on filedocumented in this encounter"
--- OUTSIDE RECORDS SUMMARY | ~2020-05-04 | XMS | Encounter Summary ---
Demographics + + + | Address | [address] | | | [place] [address] | + + + | Home Phone [...] + | Gene Gee | ECON | [address] | | | | | [place], | | | | | [place] [address] | | + + + + + Care Team Providers + +------+ + | Care Infection Prevention Practitioner Name | Role | Phone | + +------+ + | Antony Ribera MD | PCP | | + +------+ + Encounter Details +--------+ + + + + | Date | Type | Department | Care Team | Description | +--------+ + + + + | 09/24/ | Hospital | Women's Imaging | | | | 2014 | Encounter | Center at [facility] [address] | | | | | | [facility] [address] | | | | | | [place], [address] [place] [address] | | | | | | [place], [place] | | | | | | [address] | | | | | | [phone] | | | +--------+ + + + [...] + + + +---------+ + + | | Instill 1 drop into | | 0 | | | | carboxymethylcellulo | both eyes as needed. | | | | | | se 0.5 % ophthalmic | | | | | | | dropperette | | | | | | + [...] of this encounter Miscellaneous Notes Scan - Gisele Strong - 10/14/2014 11:40 AM PDTElectronically signed by Gisele Strong at 11:40 AM PDTdocumented in this encounter Plan of Treatment Not on filedocumented as of this encounter Visit Diagnoses + + | Diagnosis | + + | Breast cancer, right (HCC) | + + documented in this encounter"
--- OUTSIDE RECORDS SUMMARY | ~2020-05-04 | XMS | Encounter Summary ---
Demographics + + + | Address | [address] | | | [place] [address] | + + + | Home Phone | | + + + | Preferred Language | Unknown | + + + | Marital Status | | + + + | Anabaptist Affiliation | CHR | + + + | Race | White | + + + | Ethnic Group | Not or | + + + Author + + + | Author | [facility] | + + + | Organization | [facility] | + + + | Address | Unknown | + + + | Phone | Unavailable | + + + Support + + + + + | Name | Relationship | Address | Phone | + + + + + | Gene Gee | ECON | [address] | | | | | [place], | | | | | [place] [address] | | + + + + + Care Team Providers + +------+ + | Care Financial Services Assistant Name | Role | Phone | + +------+ + | Antony Ribera MD | PCP | | + +------+ + Encounter Details +--------+ + + + + | Date | Type | Department | Care Team | Description | +--------+ + + + + | 01/13/ | Documentati | Digestive Health | [facility] | | | 2009 | on | Center at [facility] [address] | MD [address] | | | | | [address] [facility] | [place], | | | | | for Health and | [place] [address] | | | | | [facility], [address] | [phone] | | | | | [place], [place] | | | | | | [address] | | | | | | [phone] | | | +--------+ + + + + Social History + +-------+ +--------+------+ | Tobacco Use | Types | Packs/Day | Years | Date | | | | | Used | | + +-------+ +--------+------+ | Former Smoker | | | | | + [...] this encounter Miscellaneous Notes Telephone Encounter - Vanessa Fernando - 01/13/2010 10:04 AM PDTFollow up phone call to dillon ent regarding GI procedure from 01/12/2010. Patient states the following: "I am absolutely fine - thanks for calling." Pain: no Bleeding: no Informed the patient that their referring provider will receive a copy of the procedure results with in the next week. Patient advised to review all discharge information. documented in this encoun ter Plan of Treatment Not on filedocumented as of this encounter Visit Diagnoses Not on filedocumented in this encounter
--- OUTSIDE RECORDS SUMMARY | ~2020-05-04 | XMS | Encounter Summary ---
Demographics + + + | Address | [address] | | | [place] [address] | + + + | Home Phone | | + + + | Preferred Language | Unknown | + + + | Marital Status | | + + + | Sikhism Affiliation | CHR | + + + [...] + | Gene Gee | ECON | [address] | | | | | [place], | | | | | [place] [address] | | + + + + + Care Team Providers + +------+ + | Care Printing Specialist Name | Role | Phone | [...]
--- OUTSIDE RECORDS SUMMARY | ~2020-05-04 | XMS | Encounter Summary ---
Demographics + + + | Address | [address] | | | [place] [address] | + + + | Home Phone [...] + + + | Author | [facility] | + + + | Organization | [facility] | + + + | Address | Unknown | + + + | Phone | Unavailable | + + + Support + + + + + | Name | Relationship | Address | Phone | + + + + + | Gene Gee | ECON | [address] | | | | | [place], | | | | | [place] [address] | | + + + + + Care Team Providers + +------+ + | Care Claims Counsel Name | Role | Phone | + +------+ + | Antony Ribera MD | PCP | | + +------+ + Encounter Details +--------+ + + + + | Date | Type | Department | Care Team | Description | +--------+ + + + + | 12/28/ | MyChart | Pulmonary & | Sergio Smith | RE: Request for 3 | | 2011 | Encounter | Critical Care | MD Dianna | month followup | | | | Medicine at | | information | | | | [facility] | | | | | | [address] | | | | | | [facility] | | | | | | [facility], 3rd Floor | | | | | | [place], [place] | | | | | | [address] | | | | | | [phone] | | | +--------+ + + + [...]
--- OUTSIDE RECORDS SUMMARY | ~2020-05-04 | XMS | Encounter Summary ---
Demographics + + + | Address | [address] | | | [place] [address] | + + + | Home Phone | | + + + | Preferred Language | Unknown | + + + | Marital Status | | + + + | Yarsani Affiliation | CHR | + + + | Race | White | + + + | Ethnic Group | Not or | + + + Author + + + | Author | [facility] | + + + | Organization | [facility] | + + + | Address | Unknown | + + + | Phone | Unavailable | + + + Support + + + + + | Name | Relationship | Address | Phone | + + + + + | Gene Gee | ECON | [address] | | | | | [place], | | | | | [place] [address] | | + + + + + Care Team Providers + +------+ + | Care Material Stockkeeper Yard Name | Role | Phone | + +------+ + | Alec Hill MD | PCP | | + +------+ + Reason for Visit + +--------+ + | Reason | Onset | Comments | | | Date | | + +--------+ + | Refill Request | 02/24/ | | | | 2020 | | + +--------+ + Encounter Details +--------+--------+ + + + | Date | Type | Department | Care Team | Description | +--------+--------+ + + + | 12/10/ | Refill | Pulmonary & | Juana Kilgore MD | Refill Request | | 2020 | | Critical Care | [address] | | | | | Medicine at | [address] [place], | | | | | [facility] | [place] [address] | | | | | [address] | [phone] | | | | | [facility] | | | | | | [facility], 3rd Floor | | | | | | [place], [place] | | | | | | [address] | | | | | | [phone] | | | +--------+--------+ + + + Social History + +-------+ [...] this encounter Miscellaneous Notes Telephone Encounter - Kumar Talbert MA - 12/11/2019 3:17 PM PDT Requested Prescriptions Pending Prescriptions Disp Refills levalbuterol 1.25 mg/3 mL inhalation solution for nebulization 336 mL 6 Sig: Inhale 3 mL every six hours as needed (shortness of breath). Code: J45.909 Indicatio ns: asthma attack documented in this e ncounter Plan of Treatment Not on filedocumented as of this encounter Visit Diagnoses Not on filedocumented in this encounter"
--- OUTSIDE RECORDS SUMMARY | ~2020-05-04 | XMS | Encounter Summary ---
Demographics + + + | Address | [address] | | | [place] [address] | + + + | Home Phone | | + + + | Preferred Language | Unknown | + + + | Marital Status | | + + + | Presybeterian Affiliation | CHR | + + + [...] + | Gene Gee | ECON | [address] | | | | | [place], | | | | | [place] [address] | | + + + + + Care Team Providers + +------+ + | Care Clerical Office Name | Role | Phone | + [...] | | | | | | | [facility] | | | | | | | [id number] | | | | | | | [facility] | | | | | | | [place], | | | | | | | [place] [address] | | | | | | | Phone: | | | | | | | [phone] | | | | | | | Fax: | | | | | | | [phone] | +--------+--------+ + + + + Encounter Details +--------+ + + + + | Date | Type | Department | Care Team | Description | +--------+ + + + + | 12/29/ | Hospital | Cardiac | Sjh, Car Ecg Tech | | | 2007 | Encounter | Non-Invasive Testing | [address] | | | | | at [address] | [facility] | | | | | [address] | [place] [address] | | | | | [address] | | | | | | [place], [address] [place] [address] | | | | | | [place], [place] | | | | | | [address] | | | | | | [phone] | | | +--------+ + + + [...] Miscellaneous Notes Scan - Other, Faculty - 12/30/2007 1:18 PM PDT documented in this encounter Plan of Treatment Not on filedocumented as of this encounter Procedures + +--------+ + + + | Procedure Name | Priori | Date/Time | Associated Diagnosis | Comments | | | ty | | | | + +--------+ + + + | 12 LEAD ECG | Routin | 12/30/2007 | | Results for this | | | e | 4:19 PM | | procedure are in the | | | | PDT | | results section. | + +--------+ + + + documented in this encounter Results 12 LEAD ECG (12/30/2007 4:19 PM PDT) + + + + + + | Component | Value | Ref Range | Performed | Pathologist | | | | | At | Signature | + + + + + + | VENTRICULAR | 69 | BPM | [facility] | | | RATE | | | OF | | | | | | CARDIOLOGY | | + + + + + + | ATRIAL RATE | 69 | BPM | [facility] | | | | | | OF | | | | | | CARDIOLOGY | | + + + + + + | P-R | 164 | ms | [facility] | | | INTERVAL | | | OF | | | | | | CARDIOLOGY | | + + + + + + | QRS | 86 | ms | [facility] | | | DURATION | | | OF | | | | | | CARDIOLOGY | | + + + + + + | QT | 414 | ms | [facility] | | | | | | OF | | | | | | CARDIOLOGY | | + + + + + + | QTC | 443 | ms | [facility] | | | | | | OF | | | | | | CARDIOLOGY | | + + + + + + | P AXIS | 80 | degrees | [facility] | | | | | | OF | | | | | | CARDIOLOGY | | + + + + + + | R AXIS | 83 | degrees | [facility] | | | | | | OF | | | | | | CARDIOLOGY | | + + + + + + | T AXIS | 48 | degrees | [facility] | | | | | | OF | | | | | | CARDIOLOGY | | + + + + + + | EKG | Sinus rhythm with | | [facility] | | | DIAGNOSIS | Premature atrial | | OF | | | | complexesOtherwise | | CARDIOLOGY | | | | normal ECG"I have | | | | | | personally interpreted | | | | | | this report, either | | | | | | alone or with a | | | | | | trainee."Confirmed by | | | | | | JAMES HOLT ([id number]) on | | | | | | 01-Jan-2008 10:57:56 | | | | + + + + + + | LINK TO | | | [facility] | | | [facility] | | | OF | | | (ECG | | | CARDIOLOGY | | | VIEWER) | | | | | + + + + + + + + | Specimen | + + | | + + + + + | Narrative | Performed At | + + + | Please click | [facility] | | on view image for the detailed interpretation from [employer] results. | CARDIOLOGY | | | | + + + + + + + + | Performing | Address | City/State/Zipcode | Phone Number | | Organization | | | | + + + + + | [facility] | [address] | [place], [place] | | | CARDIOLOGY | [address] | [address] | | + + + + + | [facility] | [address] | [place], [place] | | | CARDIOLOGY | [facility] | [address] | | + + + + + documented in this encounter Visit Diagnoses Not on filedocumented in this encounter
--- OUTSIDE RECORDS SUMMARY | ~2020-05-04 | XMS | Encounter Summary ---
Demographics + + + | Address | [address] | | | [place] [address] | + + + | Home Phone | | + + + | Preferred Language | Unknown | + + + | Marital Status | | + + + | Sabianism Affiliation | CHR | + + + [...] + | Gene Gee | ECON | [address] | | | | | [place], | | | | | [place] [address] | | + + + + + Care Team Providers + +------+ + | Care Data Coder Operator Name | Role | Phone | + +------+ + | Antony Ribera MD | PCP | | + +------+ + Reason for Visit + +--------+ + | Reason | Onset | Comments | | | Date | | + +--------+ + | Refill Request | 05/30/ | [facility] | | | 2018 | | + +--------+ + Encounter Details +--------+--------+ + + + | Date | Type | Department | Care Team | Description | +--------+--------+ + + + | 05/30/ | Refill | Pulmonary & | Juana Kilgore MD | Refill Request | | 2018 | | Critical Care | [address] | ([facility]) | | | | Medicine at | [facility], | | | | | [facility] | [place] [address] | | | | | [address] | [phone] | | | | | [facility] | | | | | | [place], [address] [place] [address] | | | | | | [place], [place] | | | | | | [address] | | | | | | [phone] | | | +--------+--------+ + + + [...] this encounter Miscellaneous Notes Telephone Encounter - Virginia Castro MA - 05/30/2018 8:58 AM PSTFormatting of this not e might be different from the original. REFILL REQUEST DATE: May 30, 2018 PATIENT: Adriana Flynn [id number] MESSAGE: Received a 90 day request from the pharmacy. [facility] Respimat was not on patient' s medication list but I was able to pull it in from an external pharmacy. Would you like to fill? Requested Prescriptions Pending Prescriptions Disp Refills [facility] RESPIMAT 2.5 mcg/actuation inhalation mist 12 g 3 Sig: Inhale 1 puff once daily. LAST APPOINTMENT: 10/24/17 at 3:40 pm NEXT APPOINTMENT: No future appointments scheduled in Pulmonary Disease. Patient's pharmacy has been verified: Yes [id number] [place] [id number] documented in this encounter Plan of Treatment Not on filedocumented as of this encounter Visit Diagnoses Not on filedocumented in this encounter"
--- OUTSIDE RECORDS SUMMARY | ~2020-05-04 | XMS | Encounter Summary ---
Demographics + + + | Address | [address] | | | [place] [address] | + + + | Home Phone | | + + + | Preferred Language | Unknown | + + + | Marital Status | | + + + | Quaker Affiliation | CHR | + + + | Race | White | + + + | Ethnic Group | Not or | + + + Author + + + | Author | [facility] | + + + | Organization | [facility] | + + + | Address | Unknown | + + + | Phone | Unavailable | + + + Support + + + + + | Name | Relationship | Address | Phone | + + + + + | Gene Gee | ECON | [address] | | | | | [place], | | | | | [place] [address] | | + + + + + Care Team Providers + +------+ + | Care Medicaid Specialist Name | Role | Phone | + +------+ + | Antony Ribera MD | PCP | | + +------+ + Encounter Details +--------+ + + + + | Date | Type | Department | Care Team | Description | +--------+ + + + + | 02/04/ | MyChart | Pulmonary & | Thalia Barnard, | RE: Confusion of | | 2014 | Encounter | Critical Care | [facility] | drugs to use | | | | Medicine at | [facility] | | | | | [facility] | [address] | | | | | [address] | [address] [place], | | | | | [facility] | [place] [address] | | | | | [place], [facility] | [phone] | | | | | [place], [place] | | | | | | [address] | | | | | | [phone] | | | +--------+ + + + [...]
--- OUTSIDE RECORDS SUMMARY | ~2020-05-04 | XMS | Encounter Summary ---
Demographics + + + | Address | [address] | | | [place] [address] | + + + | Home Phone | | + + + | Preferred Language | Unknown | + + + | Marital Status | | + + + | Yazdanism Affiliation | CHR | + + + | Race | White | + + + | Ethnic Group | Not or | + + + Author + + + | Author | [facility] | + + + | Organization | [facility] | + + + | Address | Unknown | + + + | Phone | Unavailable | + + + Support + + + + + | Name | Relationship | Address | Phone | + + + + + | Gene Gee | ECON | [address] | | | | | [place], | | | | | [place] [address] | | + + + + + Care Team Providers + +------+ + | Care Shirt Hemmer Name | Role | Phone | + +------+ + | Antony Ribera MD | PCP | | + +------+ + Reason for Visit + + + | Reason | Comments | + + + | Pre-op evaluation | op 10/04/12 R breast TE exchange to implant and L breast reduction | + + + Encounter Details +--------+---------+ + + + | Date | Type | Department | Care Team | Description | +--------+---------+ + + + | 10/03/ | Office | Plastic and | Errol Gold | Scar (Primary Dx); | | 2012 | Visit | Reconstructive | MD Manda [address] | Acquired absence of | | | | Surgery at [facility] [address] | breast and nipple; | | | | [facility] | [address] [facility] [place] | Malignant neoplasm | | | | for Health and | [id number] | of breast (female), | | | | Healing, [address], | | unspecified site | | | | 5th Floor | | | | | | [place], [place] | | | | | | [address] | | | | | | [phone] | | | +--------+---------+ + + + [...] + + + | Blood Pressure | 129/75 | 10/03/2012 10:53 AM | | | | | PDT | | + + + + + | Pulse | 65 | 10/03/2012 10:53 AM | | | | | PDT | | + + + + + | Temperature | - | - | | + + + + + | Respiratory Rate | 14 | 10/03/2012 10:53 AM | | | | | PDT | | + + + + + | Oxygen Saturation | 99% | 10/03/2012 10:53 AM | | | | | PDT | | + + + + + | Inhaled Oxygen | - | - | | | Concentration | | | | + + + + + | Weight | 66.5 kg (146 lb 8 | 10/03/2012 10:53 AM | | | | oz) | PDT | | + + + + + | Height | 166.4 cm (5' 5.5") | 10/03/2012 10:53 AM | | | | | PDT | | + + + + + | Body Mass Index | 24.01 | 10/03/2012 10:53 AM | | | | | PDT | | + + + + + documented in this encounter Progress Notes Alla Buchanan, Errol J - 10/03/2012 11:06 AM PDT Plastic and Reconstructive Surgery History and Physical CC: TE exchange for implant on right and left mastopexy History of Present Illness: Adriana Flynn is a 67 y.o. female who presents today status-po st R TE placement delayed reconstruction on 06/26/[address] Lopez. She is interested in R T E to implant exchange and L mastopexy for symmetry. She states that her left breast is large r and is ptotic. She currently has a 450cc tissue detailer pharmaceuticals in place, filled to 450cc. She st ates in the last few weeks she's has a flare of her seasonal allergies and asthma but they'v e been controlled recently. She denies any chest pain, shortness of breath, difficulty breat [place], [place], constipation or diarrhea. Past Medical History Diagnosis Date Sjogrens syndrome 1995 Fibromyalgia 1995 Mitral valve prolapse 1989 GERD (gastroesophageal reflux disease) 1995 Asthma 1999 TMJ (dislocation of temporomandibular joint) Fibrocystic disease of breast 1978 Diverticul disease small and large intestine, no perforati or abscess Skin cancer back Small bowel obstruction 07/20,10/19,02/19 Atrial tachycardia 07/20 Bursitis 2006 Plantar fascial fibromatosis 2007 plantar fascial tear Osteopenia 12/30/2007 Breast cancer 02/2007 s/p chemo with taxotere/cytoxan Shingles Difficult intravenous access Atrial fibrillation 05/2012 assoc with vomiting and diarrhea Pulmonary embolus 09/2008 Deep vein thrombosis of lower extremity Past Surgical History Procedure Date Ectopic age 20 Appendectomy age 25 Removal adhesion Hysterectomy endometriosis, age 46 Bladder tie up age 51 Colon resection, diverticulitis 11/25/02 Pr removal gallbladder 04/07/03 Hernia repair 07/28/2003 Liver cyst ruptured 04/30/2004 Liver cyst removed 06/29/2004 Carpal tunnel release left wrist Punctum closed (eyes) 40 years old Sinus procedure 1989? Dr. Matt Hinojosa Hemorrhoidectomy 1991 Left leg veins 1991 Bunions/hammer toes/neuromas 1998,1999 Dr. Raymond Rose Heart ablation 12/16/2004,09/21/2005 Dr. Fuentes, [facility] Mastectomy Biopsy / excision / dissection axillary node Allergies Allergen Reactions Sulfa (Sulfonamide Antibiotics) Swelling-Facial Albuterol Tachycardia Cardizem (Diltiazem Hcl) Hives Celebrex (Celecoxib) Diarrhea and Cough Ciprofloxacin Hives and Rash Clarification Needed Patient had steroid injection in shoulder. She and her provider are still trying to find out which part of injection she reacted to. Patient states she was "loopy" for a few days af ter injection Crestor (Rosuvastatin Calcium) muscle/Jt Pain Flecainide Acetate Rash Intestinal discomfort Kapidex (Dexlansoprazole) Diarrhea and Nausea Heart/intest. pain Lactose Cough Intestinal/congestion. Propafenone Intestinal distress. Triamterene-Hydrochlorothiazid BREAST LUMPS Tape Adherent Rash Current Outpatient Prescriptions Medication Sig anastrozole (ARIMIDEX) 1 mg Oral Tablet Take 1 Tab by mouth once daily. atenolol 50 mg Oral Tablet Take 25 mg by mouth two times daily. 1/2 tablet twice daily budesonide (PULMICORT FLEXHALER) 180 mcg/actuation [facility]ation [facility] Acti vated Inhale 3 Puffs two times daily. calcium citrate-vitamin D (CITRACAL + D) 315-200 mg-unit Oral Tablet 2 tabs in evening and liquid calcium citrate in AM Diclofenac Sodium (VOLTAREN) 1 % Topical Gel Apply to affected area three times daily. DOFETILIDE 500 mcg Oral Capsule Take 1 Cap by mouth two times daily. ezetimibe (ZETIA) 10 mg Oral Tablet Take 10 mg by mouth once daily. fluticasone (FLONASE) 50 mcg/actuation Nasal Grid[place], Suspension Instill 1 [place] into eac h nostril two times daily. Glucosamine 1,000 mg Oral Tablet one daily LORAZEPAM 1 mg Oral tablet 0.5 Tabs Q HS PRN. Methylcellulose, Laxative, (CITRUCEL) Oral Powder Take by mouth. MULTIVITAMIN OR one daily potassium chloride SR 20 mEq Oral tablet,ER particles/crystals Take 1 Tab by mouth once daily. rabeprazole (ACIPHEX) 20 mg Oral Tablet, Delayed Release (E.C.) Take 20 mg by mouth onc e daily. Vitamin A-Vitamin C-Vit E-Min (ANTIOXIDANT FORMULA) Oral Capsule take 1 capsule by oral route once daily with food VITAMIN D ORAL 2000 IU daily Social History: Alcohol use: 1 glass of wine per week, but none since cancer dx Tobacco use: none Other drugs: none Family History Problem Relation Diabetes Heart Disease Additional Family History Mother osteoporosis/hip fracture Physical Exam: Vitals: BP 129/75 | Pulse 65 | RR 14 | Ht 1.664 m (5' 5.5") | Wt 66.452 kg (146 lb 8 oz) | SpO2 99% | BMI 24.01 kg/(m^2) General Appearance: Well-developed, well-nourished female in no apparent distress. HEENT: Pupils equal, round, and reactive to light, extraocular movements intact bilaterall y. Oral mucosa pink and moist. Neck: Supple without lymphadenopathy. Thyroid not enlarged. Heart: Regular rate and rhythm. No murmurs, rubs, or gallops. Lungs: Clear to auscultation anterior and posterior bilaterally. R breast: TE in place , incision well-healed, scar tethering on R lateral chest wall causin g indentation along anterior axillary area L breast: larger compared to R, Grade 2 ptosis Abdomen: Soft, non-tender. Normoactive bowel sounds. Extremities: Warm and well-perfused. No edema. Psychiatric: Normal mood and affect. Vascular: Palpable radial, dorsalis pedis arteries bilaterally. 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 Kaufman. I agree with the residents document ation and have documented any additions or exceptions. To OR for R TE to implant exchange, capsulotomy, capsulectomy, L mastopexy for symmetry The risks, benefits, and alternatives of breast reconstruction with tissue expanders and us e of dermal matrix were described to the patient. The risks including but not limited to b leeding, pain, scar, infection, hematoma, seroma, cosmetic defect, asymmetry, mechanical luis lure of implant such as rupture or leak, capsular contracture, extrusion of implant, difficu lty healing, change in nipple sensation, need to remove implant, need for further procedures , allergic reactions, blood clots to the legs or lungs, risks with anesthesia such as heart or lung problems, or even were described to the patient. All questions were answered . She understands that implant-based breast reconstruction is a multi-stage process. The p atient gave her informed consent which can be found on the chart. Preoperative instructions were reviewed. The patient was advised to avoid sun exposure to t he operative area. She was instructed to avoid NSAIDs and herbal medications for one week pr ior to surgery and for one week after. Tobacco and nicotine avoidance was discussed once aga in. Post-operative instructions were reviewed and given to the patient. She was given pre-operative prescriptions today. She will discuss anesthetic options with our aurelia-operative medicine team. Mark Gold MD Division of Plastic and Reconstructive Surgery Pager:[phone] documented in this encounter Miscellaneous Notes Scan - Other, Faculty - 10/11/2012 12:52 PM PDTElectronically signed by Faculty Other at 12:52 PM PDTScan - Other, Faculty - 10/11/2012 12:52 PM PDT can - Other, Faculty - 10/04/2012 10:50 AM PDTElec tronically signed by Faculty Other at 10/04/2012 10:50 AM PDTScan - Other, Faculty - 013 3:59 PM PDT documented in this encounter Plan of Treatment Not on filedocumented as of this encounter Visit Diagnoses + + | Diagnosis | + + | Scar - Primary Scar condition and fibrosis of skin | + + | Acquired absence of breast and nipple | + + | Malignant neoplasm of breast (female), unspecified site | + + documented in this encounter
--- OUTSIDE RECORDS SUMMARY | ~2020-05-04 | XMS | Encounter Summary ---
Demographics + + + | Address | [address] | | | [place] [address] | + + + | Home Phone | | + + + | Preferred Language | Unknown | + + + | Marital Status | | + + + | Advent Affiliation | CHR | + + + | Race | White | + + + | Ethnic Group | Not or | + + + Author + + + | Author | [facility] | + + + | Organization | [facility] | + + + | Address | Unknown | + + + | Phone | Unavailable | + + + Support + + + + + | Name | Relationship | Address | Phone | + + + + + | Gene Gee | ECON | [address] | | | | | [place], | | | | | [place] [address] | | + + + + + Care Team Providers + +------+ + | Care Principal Account Clerk Name | Role | Phone | + +------+ + | Antony Ribera MD | PCP | | + +------+ + Encounter Details +--------+ + + + + | Date | Type | Department | Care Team | Description | +--------+ + + + + | 06/12/ | Med | AMBULATORY SURGERY | [facility] | | | 2006 | Reconciliat | [address] | [address] | | | | ion | [address] | [place], [place] | | | | | [place] | [address] | | | | | [address] [place], [place] | [phone] | | | | | [address] | | | +--------+ + + + [...]
--- OUTSIDE RECORDS SUMMARY | ~2020-05-04 | XMS | Encounter Summary ---
Demographics + + + | Address | [address] | | | [place] [address] | + + + | Home Phone [...] + + + | Author | [facility] | + + + | Organization | [facility] | + + + | Address | Unknown | + + + | Phone | Unavailable | + + + Support + + + + + | Name | Relationship | Address | Phone | + + + + + | Gene Gee | ECON | [address] | | | | | [place], | | | | | [place] [address] | | + + + + + Care Team Providers + +------+ + | Care Product Development Chemist Name | Role | Phone | + +------+ + | Alec Hill MD | PCP | | + +------+ + Reason for Visit + + + | Reason | Comments | + + + | Medical Records | | | Review | | + + + Encounter Details +--------+ + + + + | Date | Type | Department | Care Team | Description | +--------+ + + + + | 04/11/ | Documentati | Endoscopic | Lab, Gi Procedure | Medical Records | | 2017 | on | Procedural Unit at | | Review | | | | [facility] [address] | | | | | [address] | | | | | | [place], | | | | | | [address]th floor [place], | | | | | | [place] [address] | | | | | | [phone] | | | +--------+ + + + [...] this encounter Miscellaneous Notes Telephone Encounter - Yu Quintero MD - 06/18/2017 9:37 AM PSTOkay to add EGD to previously scheduled colonoscopy elephone Encounter - Cole Baron - 06/15/2017 11:23 AM PSTFormatting of th is note might be different from the original. Adriana Flynn [id number] REFERRAL FOR REVIEW: Reviewing Provider: Yu Quintero MD []Internal Referral [x] External Referral [] CORI Report Available Referring Diagnosis/Comments: Received call from Katty at PCP's office. They are wanting pt to have EGD as well when she comes in for Colonoscopy on 06.26.17. Please review recent smith t note received. R13.1 (ICD-10-CM) - Dysphagia [] emergent [x]urgent []routine []Consultation []Colonoscopy []Colonoscopy w/ EMR []Flexible Sigmoidoscopy [x]EGD (Upper Endoscopy) []Ileoscopy []Pouchoscopy []Endoscopy of [place] Pouch [] Sm Bowel Enteroscopy [] Double Balloon Enteroscopy []Capsule Endoscopy: []Small Bowel []ESO []EUS []ERCP []24HR ph Monitor [] ON PPI (will be done OFF PPI unless checked) []48HR ph Mirta tor [] ON PPI (will be done OFF PPI unless checked) []Esophageal Manometry []Anorectal Manometry []PEG Tube Placement []PEG Tube REPLACEMENT []Other: Electronic Data: Last 1 Encounter BMI Readings: Date BMI 06/13/2017 25.65 kg/m2 Patient Active Problem List Diagnosis Disorder of bone and cartilage Breast cancer (HCC) Sjogren's syndrome (HCC) Asthma Paroxysmal atrial fibrillation (HCC) Current Outpatient Prescriptions Medication Sig budesonide (PULMICORT FLEXHALER) 180 mcg/actuation inhalation aerosol powdr breath acti vated Inhale 3 puffs by mouth two times daily. calcium citrate-vitamin D (CITRACAL + D) 315-200 mg-unit Oral Tablet 2 tabs in evening and liquid calcium citrate in AM carboxymethylcellulose 0.5 % ophthalmic dropperette 1 drop 3 Times Daily ezetimibe (ZETIA) 10 mg Oral Tablet Take 10 mg by mouth once daily. fluticasone (FLONASE) 50 mcg/actuation nasal spray,suspension Instill 1 spray into each nostril two times daily. ipratropium 0.02 % inhalation solution Inhale 2.5 mL(ONE AMPULE) via nebulizer every si x hours as needed (Shortness of breath). lactobac cmb #8-tel-xcxcuiezop 300-250 million cell-mg oral capsule Take by mouth once daily. levalbuterol 1.25 mg/3 mL inhalation solution for nebulization Inhale 3 mL every six ho urs as needed (shortness of breath). Indications: Acute Asthma Attack levalbuterol 45 mcg/actuation inhalation HFA aerosol inhaler Inhale 1-2 puffs by mouth every six hours as needed. Indications: Bronchospasm Prevention LORAZEPAM 1 mg Oral tablet 0.5 Tabs Q HS PRN. metoprolol tartrate 50 mg oral tablet Take 75mg TID. May take an additional 25mg PRN p alpitations MULTIVITAMIN OR one daily ofloxacin 0.3 % ophthalmic drops as needed. polyethylene glycol (MIRALAX) 17 gram/dose oral powder Mix 17 g in liquid and drink onc e daily. potassium chloride SR 20 mEq oral tablet,ER particles/crystals Take 1 tablet by mouth o nce daily. rabeprazole (ACIPHEX) 20 mg Oral Tablet, Delayed Release (E.C.) Take 20 mg by mouth wyatt ry twelve hours. rivaroxaban 20 mg oral tablet Take 1 tablet by mouth once daily with dinner. tiotropium 1.25 mcg/actuation inhalation mist Inhale 2 puffs once daily. Indications: M aintenance Therapy for Asthma Vitamin A-Vitamin C-Vit E-Min (ANTIOXIDANT FORMULA) Oral Capsule take 1 capsule by oral route once daily with food VITAMIN D ORAL 3000 IU daily No current facility-administered medications for this visit. Allergies Allergen Reactions Sulfa (Sulfonamide Antibiotics) Swelling-Facial and Unknown Adhesive Tape-Silicones Rash Lactose Cough Intestinal/congestion. Intestinal/congestion. Cardizem [Diltiazem Hcl] Hives Crestor [Rosuvastatin Calcium] muscle/Jt Pain Albuterol Tachycardia and Palpitations Celebrex [Celecoxib] Diarrhea, Cough and Unknown Flecainide Unknown Propafenone Unknown Intestinal distress. Tape Adherent Rash Triamterene-Hydrochlorothiazid Unknown BREAST LUMPS BREAST LUMPS Past Medical History: Diagnosis Date Atrial tachycardia (HCC) RA stacey tach ablated 2004 at [facility]. Repeat EPS showed only non-sustained left atrial tach ycardia Breast cancer (HCC) 02/2007 s/p chemo with taxotere/cytoxan Bursitis 2005 Fibromyalgia 1995 GERD (gastroesophageal reflux disease) 1995 Mitral valve prolapse 1989 Plantar fascial fibromatosis 2007 plantar fascial tear Pulmonary embolus (HCC) 09/2008 Shingles Sjogrens syndrome (HCC) 1995 Skin cancer back Small bowel obstruction 07/20,10/19,02/19 TMJ (dislocation of temporomandibular joint) Past Surgical History Procedure Laterality Date Ectopic age 20 Appendectomy age 25 [...] Raymond Rose Heart ablation 12/16/2004,09/21/2005 Dr. Fuentes, [facility] Mastectomy Biopsy / excision / dissection axillary node Lab Results Component Value Date WBC 5.8 06/01/2015 HB 14.6 06/01/2015 HCT 44.6 06/01/2015 PLT 151 06/01/2015 MCV 90.6 06/17/2012 RDW 13.9 06/17/2012 INRPT 1.1 06/17/2012 NA 143 06/01/2015 K 4.3 06/01/2015 CL 109 06/01/2015 BICARB 23 06/01/2015 BUN 14 06/01/2015 CR 0.87 06/01/2015 GLU 88 06/01/2015 CA 9.5 06/01/2015 AST 21 06/01/2015 ALT 18 06/01/2015 AP 78 06/01/2015 TBILI 0.7 06/01/2015 TP 6.5 06/01/2015 ALB 3.8 06/01/2015 DIRBILI 0.15 06/17/2012 elephone Encounter - Eleonora De Paz MA - 05/29/2017 4:56 PM PSTMD- Golytely prep. elephone Encounter - Eleonora Bonilla MA - 05/29/2017 12: 47 PM PSTAfter further MD review: From: Antony Mehta MD Sent: 05/29/2017 12:43 PM To: Eleonora Bonilla MA, Silvano Ledbetter RN Her cards eval seems rather benign. Let's get her in for her colonoscopy. MPV with anesthesia PMC phone Mark elephone Silvano Abdalla RN - 05/29/2017 10:22 AM PSTPt contacted me by phone, requesting inform ation about how long she would need to hold xarelto when/if she does schedule a colonoscopy. Her java development team lead requested this information as he is currently assessing her cardiac risk for proceeding with colonoscopy. Pt denies any history of renal impairment. I informed pt that she would need to hold xarelto for 24 hours prior to procedure, and may be requested to hold it for up to 2 days after procedure if large polyps are removed, or ble eding is a risk. Pt verbalized understanding and is planning to discuss recommendations with her cardiologis t. elephone Eleonora Sandoval MA - 04/12/2017 4:28 PM PDTFlagging chart. Cardiac concerns. 71 year old female with BMI of 25.73 referred for colonoscopy. Hx of diverticulosis resulti ng in bowel resection. Prior breast cx. DVT/PE while undergoing tx. Considered "provoked" an d warfarin has been d/c'd. Pt also has A. Fib and has been c/o bothersome palpitations since November. EKG in November abnormal. Not discussed again until early January. It doesn't appear anything further has been done. 30 day recorder showing many PACs and RMD follow up was recommended. Has followup with cards 05/16/17. Last colonoscopy completed 07/05/2006. Moderate sedation to lerated well. Bx taken due to chronic diarrhea. Bxs normal. Pt also hx of fibromyalgia and S jogren syndrome. ole Jones - 04/11/2017 1:17 PM PDTFormatting of this note might be diffe rent from the original. Adriana Flynn [id number] REFERRAL FOR REVIEW: Reviewing Provider: Eleonora Bonilla CMA []Internal Referral [x] External Referral [x] CORI Report Available Referring Diagnosis/Comments: [] emergent []urgent [x]routine []Consultation [x]Colonoscopy []Flexible Sigmoidoscopy []EGD (Upper Endoscopy) []Ileoscopy []Pouchoscopy []Endoscopy of [place] Pouch [] Sm Bowel Enteroscopy [] Double Balloon Enteroscopy []Capsule Endoscopy: []Small Bowel []ESO []EUS []ERCP []24HR ph Monitor [] ON PPI (will be done OFF PPI unless checked) []48HR ph Mirta tor [] ON PPI (will be done OFF PPI unless checked) []Esophageal Manometry []Anorectal Manometry []PEG Tube Placement []PEG Tube REPLACEMENT []Other: Electronic Data: Last 1 Encounter BMI Readings: Date BMI 11/14/2016 25.73 kg/m2 Patient Active Problem List Diagnosis Atrial tachycardia (HCC) 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 budesonide (PULMICORT FLEXHALER) 180 mcg/actuation inhalation aerosol powdr breath acti vated Inhale 3 puffs by mouth two times daily. calcium citrate-vitamin D (CITRACAL + D) 315-200 mg-unit Oral Tablet 2 tabs in evening and liquid calcium citrate in AM carboxymethylcellulose 0.5 % ophthalmic dropperette 1 drop 3 Times Daily ezetimibe (ZETIA) 10 mg Oral Tablet Take 10 mg by mouth once daily. fluticasone (FLONASE) 50 mcg/actuation nasal spray,suspension Instill 1 spray into each nostril two times daily. ipratropium (ATROVENT HFA) 17 mcg/actuation inhalation HFA aerosol inhaler Inhale 2 puf fs by mouth four times daily as needed for dyspnea/shortness of breath. ipratropium 0.02 % inhalation solution Inhale 2.5 mL(ONE AMPULE) via nebulizer every si x hours as needed (Shortness of breath). ipratropium 0.03 % nasal spray,non-aerosol Instill 2 sprays into each nostril three roxie es daily. lactobac cmb #2-seo-fwulqndzer 300-250 million cell-mg oral capsule Take by mouth once daily. levalbuterol 1.25 mg/3 mL inhalation solution for nebulization Inhale 3 mL every six ho urs as needed (shortness of breath). Indications: Acute Asthma Attack levalbuterol 45 mcg/actuation inhalation HFA aerosol inhaler Inhale 1-2 puffs by mouth every six hours as needed. LORAZEPAM 1 mg Oral tablet 0.5 Tabs Q HS PRN. Methylcellulose, Laxative, (CITRUCEL) Oral Powder Take by mouth. metoprolol tartrate 50 mg oral tablet Take 75mg TID. May take an additional 25mg PRN p alpitations MULTIVITAMIN OR one daily ofloxacin 0.3 % ophthalmic drops as needed. potassium chloride SR 20 mEq oral tablet,ER particles/crystals Take 1 tablet by mouth o nce daily. rabeprazole (ACIPHEX) 20 mg Oral Tablet, Delayed Release (E.C.) Take 20 mg by mouth wyatt ry twelve hours. rivaroxaban 20 mg oral tablet Take 1 tablet by mouth once daily with dinner. tiotropium 1.25 mcg/actuation inhalation mist Inhale 2 puffs once daily. Indications: M aintenance Therapy for Asthma Vitamin A-Vitamin C-Vit E-Min (ANTIOXIDANT FORMULA) Oral Capsule take 1 capsule by oral route once daily with food VITAMIN D ORAL 2000 IU daily No current facility-administered medications for this visit. Allergies Allergen Reactions Sulfa (Sulfonamide Antibiotics) Swelling-Facial and Unknown Adhesive Tape-Silicones Rash Lactose Cough Intestinal/congestion. Intestinal/congestion. Cardizem [Diltiazem Hcl] Hives Crestor [Rosuvastatin Calcium] muscle/Jt Pain Albuterol Tachycardia and Palpitations Celebrex [Celecoxib] Diarrhea, Cough and Unknown Flecainide Unknown Propafenone Unknown Intestinal distress. Tape Adherent Rash Triamterene-Hydrochlorothiazid Unknown BREAST LUMPS BREAST LUMPS Past Medical History: Diagnosis Date Asthma 1999 Atrial tachycardia (HCC) 07/20 also episode in setting of [place] virus in 05/2012 which was thougth to be AF, but likely just AT. Atrial tachycardia (HCC) RA stacey tach ablated 2004 at [facility]. Repeat EPS showed only non-sustained left atrial tach ycardia Breast cancer (HCC) 02/2007 s/p chemo with taxotere/cytoxan Bursitis 2006 Deep vein thrombosis of lower extremity (HCC) Diverticul disease small and large intestine, no perforati or abscess Fibrocystic disease of breast 1978 Fibromyalgia 1995 GERD (gastroesophageal reflux disease) 1995 Mitral valve prolapse 1990 Osteopenia 12/30/2007 Plantar fascial fibromatosis 2007 plantar fascial tear Pulmonary embolus (HCC) 09/2008 Shingles Sjogrens syndrome (HCC) 1995 Skin cancer back Small bowel obstruction (HCC) 07/20,10/19,02/19 TMJ (dislocation of temporomandibular joint) Past Surgical History Procedure Laterality Date Ectopic age 20 Appendectomy age 25 Removal adhesion Hysterectomy endometriosis, age 46 Bladder tie up age 51 Colon resection, diverticulitis 11/25/02 Pr removal gallbladder 04/07/03 Hernia repair 07/28/2003 Liver cyst ruptured 04/30/2004 Liver cyst removed 06/29/2004 Carpal tunnel release left wrist Punctum closed (eyes) 40 years old Sinus procedure 1989? Dr. Matt Hinojosa Hemorrhoidectomy 1991 Left leg veins 1992 Bunions/hammer toes/neuromas 1998,1999 Dr. Raymond Rose Heart ablation 12/16/2004,09/21/2005 Dr. Fuentes, [facility] Mastectomy Biopsy / excision / dissection axillary node Lab Results Component Value Date WBC 5.8 06/01/2015 HB 14.6 06/01/2015 HCT 44.6 06/01/2015 PLT 151 06/01/2015 MCV 90.6 06/17/2012 RDW 13.9 06/17/2012 INRPT 1.1 06/17/2012 NA 143 06/01/2015 K 4.3 06/01/2015 CL 109 06/01/2015 BICARB 23 06/01/2015 BUN 14 06/01/2015 CR 0.87 06/01/2015 GLU 88 06/01/2015 CA 9.5 06/01/2015 AST 21 06/01/2015 ALT 18 06/01/2015 AP 78 06/01/2015 TBILI 0.7 06/01/2015 TP 6.5 06/01/2015 ALB 3.8 06/01/2015 DIRBILI 0.15 06/17/2012 documented in this encounte r Plan of Treatment Not on filedocumented as of this encounter Visit Diagnoses Not on filedocumented in this encounter
--- OUTSIDE RECORDS SUMMARY | ~2020-05-04 | XMS | Encounter Summary ---
Demographics + + + | Address | [address] | | | [place] [address] | + + + | Home Phone | | + + + | Preferred Language | Unknown | + + + | Marital Status | | + + + | Sabianism Affiliation | CHR | + + + | Race | White | + + + | Ethnic Group | Not or | + + + Author + + + | Author | [facility] | + + + | Organization | [facility] | + + + | Address | Unknown | + + + | Phone | Unavailable | + + + Support + + + + + | Name | Relationship | Address | Phone | + + + + + | Gene Gee | ECON | [address] | | | | | [place], | | | | | [place] [address] | | + + + + + Care Team Providers + +------+ + | Care Grated Cheese Maker Name | Role | Phone | + +------+ + | Antony Ribera MD | PCP | | + +------+ + Encounter Details +--------+ + + + + | Date | Type | Department | Care Team | Description | +--------+ + + + + | 01/14/ | Hospital | [facility] | Nurse, [address] | | | 2009 | Encounter | [facility] [address] [facility] | | | | | [facility] | [address] [place], [place] | | | | | [facility] He[facility], | [address] | | | | | [address] | | | | | | [place], [place] | | | | | | [address] | | | | | | [phone] | | | +--------+ + + + [...] | + + + +---------+--------+ + | rabeprazole | Take 20 mg [...] +---------+--------+ + documented as of this encounter Procedure Urvashi Strong, Faculty - 01/28/2010 1:10 PM PDTAssociated Order(s): MOTILITY STUDY; MOTILITY STUDY documented in this encou nter Plan of Treatment Not on filedocumented as of this encounter Procedures + +--------+ + + + | Procedure Name | Priori | Date/Time | Associated Diagnosis | Comments | | | ty | | | | + +--------+ + + + | MOTILITY STUDY | | 01/12/2010 | | Results for this | | | | 12:00 AM | | procedure are in the | | | | PDT | | results section. | + +--------+ + + + documented in this encounter Results MOTILITY STUDY (01/12/2010 12:00 AM PDT) + + + | Narrative | Performed At | + + + | | | + + + + + | Procedure Note | + + | Gisele Strong - 01/28/2010 1:10 PM PDT | | | + + documented in this encounter Visit Diagnoses Not on filedocumented in this encounter"
--- OUTSIDE RECORDS SUMMARY | ~2020-05-04 | XMS | Encounter Summary ---
Demographics + + + | Address | [address] | | | [place] [address] | + + + | Home Phone | | + + + | Preferred Language | Unknown | + + + | Marital Status | | + + + | Mormonism Affiliation | CHR | + + + | Race | White | + + + | Ethnic Group | Not or | + + + Author + + + | Author | [facility] | + + + | Organization | [facility] | + + + | Address | Unknown | + + + | Phone | Unavailable | + + + Support + + + + + | Name | Relationship | Address | Phone | + + + + + | Gene Sahil | ECON | [address] | | | | | [place], | | | | | [place] [address] | | + + + + + Care Team Providers + +------+ + | Care Tax Analyst Name | Role | Phone | + +------+ + PCP | Unavailable | + +------+ + Encounter Details +--------+ + + + + | Date | Type | Department | Care Team | Description | +--------+ + + + + | 07/17/ | ED | [facility] | Report, Emergency | ED Consult | | 2004 | Consult-Tra | MEDICINE | Services | | | | nscribed | | | | +--------+ + + [...] + + documented as of this encounter Consult Notes Interface, Creative Art Therapist In - 02/12/2005 12:13 AM PDT [id number] 07/17/2004 07/17/2004 [id number] SAHIL Holman Date of Service: 07/17/2004 Chief Complaint: Bowel obstruction. 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 Callahan on June 29, 2004 with discharge on July 07, 2004. She has been doing fine since discharge until about 3-4 days ago when started having decreased p.o. intake, some nausea, and diffuse abdominal pain and distension. Admitted on July 16, yesterday, to [facility] in [place], [place] and found to have a small bowel obstruction. She was noted to have some ST wave abnormalities on her electrocardiogram. An NG was placed. She was placed NPO. She had no elevation of white count or no vast abnormalities in her electrolytes. A CT scan was done, which demonstrated the small bowel obstruction and no other masses with some moderate intra and extrahepatic duct dilatation and a small hiatal hernia. With this patient's history of electrocardiogram abnormalities and history of atrial fibrillation with RVR in the past, they were concerned about needing possible surgery for the small bowel obstruction with history of her heart disease. They wanted her to be transferred to [facility] for cardiology consultation if surgery was needed. The patient was transferred. Dr. Kris Brown, on-call for deliver transplant [facility] accepted the patient in transfer and wanted the patient evaluated in the emergency department prior to the patient being admitted. Past Medical History: 1. Liver cyst status post resection as above. 2. to esophageal dysmotility, dysphagia, and GERD. 3. Fibromyalgia. 4. Partial colectomy for diverticulosis. 5. Splenic flexure immobilization January 2003. 6. Appendectomy. 7. History of hysterectomy. 8. Oophorectomy. 9. Tear duct surgery. 10. Two sinus surgeries. 11. Hemorrhoidectomy. 12. Venous stripping. 13. breast biopsy. 14. 15. Carpal tunnel repair. 16. Laproscopic cholecystectomy. 17. Last treadmill in 2000 showed no ischemia that was done when she was having chest pain. 18. No history of coronary artery. 19. History of hyperlipidemia. Medications: 1. Estrace 0.75 mg patch twice a week. 2. Protonix. 3. Serevent. 4. Pulmicort. 5. Digoxin. 6. Amiodarone which was started on admission at [facility]. 7. History of beta efren but currently not on. Allergies: Penicillin, morphine, aspirin, codeine, iodine. Social History: Non-drinker, non-smoker. on route. Review of Systems: Negative except as stated above. The patient is stating that she has not had any chest pain for over a year in July 2003 with no shortness of breath, dyspnea on exertion. No or orthopnea. She says she hikes and walks without any difficulties. Physical Exam: Vital signs: Patient is afebrile at 36.5, blood pressure 134/56, heart rate 100, respiration 18, satting 90% on room air. The patient is talking in full sentences HEENT: Pupils equal to light. Oropharynx is clear. Neck: Supple. Pulmonary: Clear. Cardiovascular: Regular rate and rhythm. Abdomen: Soft, slightly distended. Some diffuse tenderness. Some paucity of bowel sounds. Extremities: Warm and well perfuse. No clubbing or edema. Tea Tree Farm Worker: Normal sinus rhythm in the 70s with no ectopy. EKG demonstrates normal sinus rhythm with nonspecific ST wave changes at [address] elevation present consistent with ischemia. No acute injury pattern. Abdominal series from [facility] evaluated from the first demonstrated multiple air/fluid levels. From this morning with a flat plate with no upright demonstrated a non-diffuse, non-specific gas pattern but again with no upright for comparison. A complete metabolic panel from July 16, 2004 from [place] demonstrated glucose 134, potassium 3.5, chloride 106, CO2 29, BUN 6, creatinine 0.7, net glucose 134, AST 17, ALT 23. is 97. Total bilirubin 0.5. Digoxin level 1.2. Troponin less than 0.03. CBC showed white blood cell count 8, hemoglobin 12.4, hematocrit 37.1, and platelets 492,000. Ed Course: The patient was triaged to the acute care side. Nurses' reviewed. Staff physician is Dr. Dharmesh Duong who is present for all decision making. The patient presents with history of a small bowel obstruction status post liver resection and with nonspecific ST wave changes. The patient was transferred and on evaluate of the patient she seems to be clinically improved from when she presented yesterday but likely still has a small bowel obstruction. Her labs were reviewed from this morning from [place] along with her flat abdominal plate. A repeated EKG demonstrated no evidence a fib with the EKG actually looked to be improved from the previous EKG here at [facility]. She is not having any chest pain or cardiac symptoms since July of last year. I felt this patient was safe for admission to the telemetry [facility] for continuing treatment of her small bowel obstruction. I have contacted Liver Transplant Service and spoke to who came down and wrote admitting orders for the patient to be in the Liver Transplant Service with Dr. Rollins being staff with continue of this patient's medications. Clinical Impression: 1. Small bowel obstruction. 2. Status post liver cyst resection. Plan: Admit to Liver Transplant Service as above. Derik Madden M.D. Dharmesh Duong M.D. [id number] P A: 08/08/2004 [id number] Electronically signed by Dharmesh Duong 10-29-2004 08:27:40 PM documented i n this encounter Plan of Treatment Not on filedocumented as of this encounter Visit Diagnoses Not on filedocumented in this encounter"
--- OUTSIDE RECORDS SUMMARY | ~2020-05-04 | XMS | Encounter Summary ---
Demographics + + + | Address | [address] | | | [place] [address] | + + + | Home Phone [...] + | Gene Gee | ECON | [address] | | | | | [place], | | | | | [place] [address] | | + + + + + Care Team Providers + +------+ + | Care Jackaroo Name | Role | Phone | + +------+ + PCP | Unavailable | + +------+ + Encounter Details +--------+ + + + + | Date | Type | Department | Care Team | Description | +--------+ + + + + | 04/27/ | Results | Liver Transplant | Katie Callahan MD | | | 2004 | Only | at [facility] [address] | | | | | [address] | [place], | | | | | Physician's | [place] [address] | | | | | [place], [address]nd floor | [phone] | | | | | [place], [place] | | | | | | [address] | | | | | | [phone] | | | +--------+ + + + [...] as of this encounter Plan of Treatment + +---------+--------+ + + | Name | Type | Priori | Associated Diagnoses | Date/Time | | | | ty | | | + +---------+--------+ + + | CT ABDOMEN WWO | Imaging | Routin | | 04/27/2005 12:43 PM | | CONTRAST | | e | | PDT | + +---------+--------+ + + | CT PELVIS WO | Imaging | Routin | | 04/27/2005 12:43 PM | | CONTRAST | | e | | PDT | + +---------+--------+ + + documented as of this encounter Procedures + +--------+ + + + | Procedure Name | Priori | Date/Time | Associated Diagnosis | Comments | | | ty | | | | + +--------+ + + + | CT PELVIS W IV | Routin | 06/22/2005 | | Results for this | | CONTRAST | e | 2:04 PM | | procedure are in the | | | | PST | | results section. | + +--------+ + + + | CT ABDOMEN W IV | Routin | 06/22/2005 | | Results for this | | CONTRAST | e | 2:04 PM | | procedure are in the | | | | PST | | results section. | + +--------+ + + + documented in this encounter Results CT PELVIS W CONTRAST (06/22/2005 2:04 PM PST) + + + + + + | Component | Value | Ref Range | Performed | Pathologist | | | | | At | Signature | + + + + + + | CT PELVIS W | Radiologist 1: DOBOS, | | | | | CONTRAST | SHAYY, MDHistory: | | | | | | Symptomatic hepatic | | | | | | cysts with hemorrhage | | | | | | status postmultiple cyst | | | | | | resections. Partial | | | | | | colectomy for | | | | | | diverticulosis. Exam: CT | | | | | | abdomen and pelvis with | | | | | | oral and 145 cc | | | | | | intravenousomnipaque. | | | | | | Comparison: 07-20-2004. | | | | | | ABDOMEN: Lung bases are | | | | | | clear. There are | | | | | | evolving | | | | | | postsurgicalchanges in | | | | | | the liver following | | | | | | multiple cyst resections | | | | | | withresolution of | | | | | | previously noted wedge | | | | | | resection site | | | | | | seromas.Additional | | | | | | scattered hepatic cysts | | | | | | up to 1.5 cm in diameter | | | | | | aregrossly stable in | | | | | | size and number. There | | | | | | is no intrahepatic | | | | | | ductdilation. | | | | | | Prominent extrahepatic | | | | | | common duct tapers | | | | | | normally atthe ampulla. | | | | | | Clips are present in | | | | | | the gallbladder | | | | | | fossa.Pancreas, spleen, | | | | | | adrenal glands, and | | | | | | kidneys are | | | | | | unremarkableexcept for | | | | | | focal cortical | | | | | | parenchymal scarring in | | | | | | the upper poleof the | | | | | | left kidney. There is | | | | | | a circumaortic left | | | | | | renal vein..There is no | | | | | | abdominal-pelvic | | | | | | adenopathy or ascites. | | | | | | PELVIS: The uterus is | | | | | | surgically absent. | | | | | | There is no | | | | | | adnexalmass. Bladder | | | | | | is normal. There has | | | | | | been prior mobilization | | | | | | ofthe hepatic flexure, | | | | | | in keeping with | | | | | | segmental colonic | | | | | | resectionfor | | | | | | diverticulosis. There | | | | | | is no bowel obstruction. | | | | | | Osseousstructures are | | | | | | intact. CONCLUSION: 1. | | | | | | Stable scattered | | | | | | hepatic cysts with | | | | | | contraction of | | | | | | previouslynoted | | | | | | postoperative seromas | | | | | | following multiple | | | | | | hepatic cystresections. | | | | | | 2. Prior | | | | | | cholecystectomy and | | | | | | hysterectomy. 3. No | | | | | | acute abnormality. | | | | + + + + + + + + | Specimen | + + | | + + + +---------+ + + | Performing | Address | City/State/Zipcode | Phone Number | | Organization | | | | + +---------+ + + | [facility] | | | | | RADIOLOGY | | | | + +---------+ + + CT ABDOMEN W CONTRAST (06/22/2005 2:04 PM PST) + + + + + + | Component | Value | Ref Range | Performed | Pathologist | | | | | At | Signature | + + + + + + | CT ABDOMEN | Radiologist 1: CLAUDIA, | | | | | W CONTRAST | MD SHAYYHistory: | | | | | | Symptomatic hepatic | | | | | | cysts with hemorrhage | | | | | | status postmultiple cyst | | | | | | resections. Partial | | | | | | colectomy for | | | | | | diverticulosis. Exam: CT | | | | | | abdomen and pelvis with | | | | | | oral and 145 cc | | | | | | intravenousomnipaque. | | | | | | Comparison: 07-20-2004. | | | | | | ABDOMEN: Lung bases are | | | | | | clear. There are | | | | | | evolving | | | | | | postsurgicalchanges in | | | | | | the liver following | | | | | | multiple cyst resections | | | | | | withresolution of | | | | | | previously noted wedge | | | | | | resection site | | | | | | seromas.Additional | | | | | | scattered hepatic cysts | | | | | | up to 1.5 cm in diameter | | | | | | aregrossly stable in | | | | | | size and number. There | | | | | | is no intrahepatic | | | | | | ductdilation. | | | | | | Prominent extrahepatic | | | | | | common duct tapers | | | | | | normally atthe ampulla. | | | | | | Clips are present in | | | | | | the gallbladder | | | | | | fossa.Pancreas, spleen, | | | | | | adrenal glands, and | | | | | | kidneys are | | | | | | unremarkableexcept for | | | | | | focal cortical | | | | | | parenchymal scarring in | | | | | | the upper poleof the | | | | | | left kidney. There is | | | | | | a circumaortic left | | | | | | renal vein..There is no | | | | | | abdominal-pelvic | | | | | | adenopathy or ascites. | | | | | | PELVIS: The uterus is | | | | | | surgically absent. | | | | | | There is no | | | | | | adnexalmass. Bladder | | | | | | is normal. There has | | | | | | been prior mobilization | | | | | | ofthe hepatic flexure, | | | | | | in keeping with | | | | | | segmental colonic | | | | | | resectionfor | | | | | | diverticulosis. There | | | | | | is no bowel obstruction. | | | | | | Osseousstructures are | | | | | | intact. CONCLUSION: 1. | | | | | | Stable scattered | | | | | | hepatic cysts with | | | | | | contraction of | | | | | | previouslynoted | | | | | | postoperative seromas | | | | | | following multiple | | | | | | hepatic cystresections. | | | | | | 2. Prior | | | | | | cholecystectomy and | | | | | | hysterectomy. 3. No | | | | | | acute abnormality. | | | | + + + + + + + + | Specimen | + + | | + + + +---------+ + + | Performing | Address | City/State/Zipcode | Phone Number | | Organization | | | | + +---------+ + + | [facility] | | | | | RADIOLOGY | | | | + +---------+ + + documented in this encounter Visit Diagnoses Not on filedocumented in this encounter"
--- OUTSIDE RECORDS SUMMARY | ~2020-05-04 | XMS | Encounter Summary ---
Demographics + + + | Address | [address] | | | [place] [address] | + + + | Home Phone [...] | Author | [facility] | + + + | Organization | [facility] | + + + | Address | Unknown | + + + | Phone | Unavailable | + + + Support + + + + + | Name | Relationship | Address | Phone | + + + + + | Gene Gee | ECON | [address] | | | | | [place], | | | | | [place] [address] | | + + + + + Care Team Providers + +------+ + | Care Multineedle Shirrer Name | Role | Phone | + +------+ + | Antony Ribera MD | PCP | | + +------+ + Reason for Visit + +--------+ + | Reason | Onset | Comments | | | Date | | + +--------+ + | Follow-up Plan | 11/16/ | | | | 2010 | | + +--------+ + Encounter Details +--------+ + + + + | Date | Type | Department | Care Team | Description | +--------+ + + + + | 11/16/ | Telephone | Hematology/Medical | Stevan Velazquez, | Follow-up Plan | | 2010 | | Oncology at [facility] | MD [address] | | | | | [address] | [facility] [place] | | | | | Mailcode: [facility] | [address] | | | | | [facility] | [phone] | | | | | and Healing, | | | | | | [facility] | | | | | | Floor [place], [place] | | | | | | [address] | | | | | | [phone] | | | +--------+ + + + [...] this encounter Miscellaneous Notes Telephone Encounter - Rosalinda Palacios RN - 11/16/2010 2:00 PM PDTPatient is willing to bhakta ve CT scan here in [place] sometime tomorrow through Sunday if possible. Routing to [facility] to contact patient with appointment for CT scan. Patient has no further questions at this time. elephone En counter - Rosalinda Palacios RN - 11/16/2010 1:07 PM PDTMessage copied by AUTUMN PALACIOS RN on SunNovember 16, 2010 1:07 PM ------ Message from: ROSSI FERRER, [facility] Created: SunNovember 16, 2010 11:49 AM Hi Can you call adriana that I just ordered a chest CT for her- without contrast- she can d o it over the next several weeks- no hurry In her last scan in Apr 2010- two previously noted nodules were stable. One new 3 mm n odule was noted which most likely is benign in nature- follow up scan can be considered as r ecommended by radiologist. I emailed adriana and discussed about this- just entered the order for her. We can perf orm the CT scan some 6-12 months after her last scan. thanks documented in this encounter Plan of Treatment Not on filedocumented as of this encounter Visit Diagnoses Not on filedocumented in this encounter"
--- OUTSIDE RECORDS SUMMARY | ~2020-05-04 | XMS | Encounter Summary ---
Demographics + + + | Address | [address] | | | [place] [address] | + + + | Home Phone | | + + + | Preferred Language | Unknown | + + + | Marital Status | | + + + | Sikh Affiliation | CHR | + + + [...] + | Gene Gee | ECON | [address] | | | | | [place], | | | | | [place] [address] | | + + + + + Care Team Providers + +------+ + | Care Technical Proposal Writer Name | Role | Phone | + +------+ + | Antony Ribera MD | PCP | | + +------+ + Encounter Details +--------+------+ + + + | Date | Type | Department | Care Team | Description | +--------+------+ + + + | 04/27/ | Lab | Laboratory at [facility] | | Osteopenia | | 2010 | | [address] | | | | | | Loop Physician's | | | | | | [place], [address] [place] [address] | | | | | | [place], [place] | | | | | | [address] | | | | | | [phone] | | | +--------+------+ + + + [...] + | VITAMIN D, | Routin | 04/27/2011 | Osteopenia | Results for this | | 25-HYDROXY, SERUM | e | 8:37 AM | | procedure are in the | | | | PDT | | results section. | + +--------+ + + + | COMPLETE METABOLIC | Routin | 04/27/2011 | Osteopenia | Results for this | | SET | e | 8:37 AM | | procedure are in the | | (NA,K,CL,CO2,BUN,CRE | | PDT | | results section. | | AT,GLUC,CA,AST,ALT,B | | | | | | DANICA TOTAL,ALK | | | | | | PHOS,ALB,PROT TOTAL) | | | | | + +--------+ + + + | PHOSPHORUS, PLASMA | Routin | 04/27/2011 | Osteopenia | Results for this | | | e | 8:37 AM | | procedure are in the | | | | PDT | | results section. | + +--------+ + + + | MAGNESIUM, PLASMA | Routin | 04/27/2011 | Osteopenia | Results for this | | | e | 8:37 AM | | procedure are in the | | | | PDT | | results section. | + +--------+ + + + documented in this encounter Results VITAMIN D, 25-HYDROXY, SERUM (04/27/2011 8:37 AM PDT) + + + + + + | Component | Value | Ref Range | Performed | Pathologist | | | | | At | Signature | + + + + + + | VITAMIN D | 48Comment: REFERENCE | 30 - 80 ng/mL | [facility] | | | 25 HYDROXY | INTERVAL: Vitamin D, | | DEPARTMENT | | | | 25-Hydroxy 0-17 | | OF | | | | years: Deficiency: | | PATHOLOGY | | | | less than 20 ng/mL | | | | | | Optimum level: | | | | | | greater than or equal to | | | | | | 20 ng/mL* | | | | | | *(Evangelista CL et al. | | | | | | Pediatrics 2008; 122: | | | | | | 1128-38.) 18 | | | | | | years and older: | | | | | | Deficiency: less than 20 | | | | | | ng/mL | | | | | | Insufficiency: 20-29 | | | | | | ng/mL Optimum | | | | | | level: 30-80 ng/mL | | | | | | Possible toxicity: | | | | | | greater than 150 ng/mL | | | | | | This assay | | | | | | accurately quantifies | | | | | | the sum of vitamin D3, | | | | | | 25-hydroxy and | | | | | | vitamin D2, 25-hydroxy. | | | | | | Testing performed | | | | | | in [facility] & | | | | | | Coagulation | | | | | | Department as of September | | | | | | 2010. | | | | + + + + + + + + | Specimen | + + | Blood - Blood | + + + + + + + | Performing | Address | City/State/Zipcode | Phone Number | | Organization | | | | + + + + + | [facility] | [address] | [place] [address] | | | PATHOLOGY | [address] | | | + + + + + PHOSPHORUS, PLASMA (04/27/2011 8:37 AM PDT) + +-------+ + + + | Component | Value | Ref Range | Performed | Pathologist | | | | | At | Signature | + +-------+ + + + | PHOSPHORUS, | 3.3 | 2.4 - 4.7 mg/dL | [facility] | | | PLASMA [...] DEPARTMENT OF | [address] | [place] [address] | | | PATHOLOGY | [address] | | | + + + + + MAGNESIUM, PLASMA (04/27/2011 8:37 AM PDT) + +-------+ + + + | Component | Value | Ref Range | Performed | Pathologist | | | | | At | Signature | + +-------+ + + + | MAGNESIUM,P | 2.0 | 1.8 - 2.5 mg/dL | [facility] | | | LASMA | | | DEPARTMENT | | | [...] [facility] | [address] | [place] [address] | | | PATHOLOGY | [address] | | | + + + + + COMPLETE METABOLIC SET (NA,K,CL,CO2,BUN,CREAT,GLUC,CA,AST,ALT,BILI TOTAL,ALK PHOS,ALB,PROT TOTAL) (04/27/2011 8:37 AM PDT) + + + + + + | Component | Value | Ref Range | Performed | Pathologist | | | | | At | Signature | + + + + + + | GLUCOSE, | 92 | 60 - 99 mg/dL | [facility] | | | PLASMA | | | DEPARTMENT | | | (LAB) | | | OF | | | | | | PATHOLOGY | | + + + + + + | BUN, PLASMA | 16 | 6 - 20 mg/dL | [facility] | | | (LAB) | | | DEPARTMENT | | | | | | OF | | | | | | PATHOLOGY | | + + + + + + | CREATININE | 0.72 | 0.60 - 1.10 | [facility] | | | PLASMA | | mg/dL | DEPARTMENT | | | (LAB) | | | OF | | | | | | PATHOLOGY | | + + + + + + | TOTAL | 7.2 | 6.1 - 7.9 g/dL | [facility] | | | PROTEIN, | | | DEPARTMENT | | | PLASMA | | | OF | | | (LAB) | | | PATHOLOGY | | + + + + + + | ALBUMIN, | 3.9 | 3.5 - 4.7 g/dL | [facility] | | | PLASMA | | | DEPARTMENT | | | (LAB) | | | OF | | | | | | PATHOLOGY | | + + + + + + | CALCIUM, | 9.5 | 8.6 - 10.2 | [facility] | | | PLASMA | | mg/dL | DEPARTMENT | | | (LAB) | | | OF | | | | | | PATHOLOGY | | + + + + + + | BILIRUBIN | 0.5 | 0.3 - 1.2 mg/dL | [facility] | | | TOTAL | | | DEPARTMENT | | | | | | OF | | | | | | PATHOLOGY | | + + + + + + | ALK PHOS | 79 | 53 - 141 U/L | [facility] | | | | | | DEPARTMENT | | | | | | OF | | | | | | PATHOLOGY | | + + + + + + | AST(SGOT) | 26 | 15 - 41 U/L | [facility] | | | | | | DEPARTMENT | | | | | | OF | | | | | | PATHOLOGY | | + + + + + + | SODIUM, | 140 | 134 - 143 | [facility] | | | PLASMA | | mmol/L | DEPARTMENT | | | (LAB) | | | OF | | | | | | PATHOLOGY | | + + + + + + | POTASSIUM, | 4.1 | 3.4 - 5.0 | [facility] | | | PLASMA | | mmol/L | DEPARTMENT | | | (LAB) | | | OF | | | | | | PATHOLOGY | | + + + + + + | CHLORIDE, | 105 | 97 - 108 mmol/L | [facility] | | | PLASMA | | | DEPARTMENT | | | (LAB) | | | OF | | | | | | PATHOLOGY | | + + + + + + | TOTAL CO2, | 29 | 22 - 29 mmol/L | [facility] | | | PLASMA | | | DEPARTMENT | | | (LAB) | | | OF | | | | | | PATHOLOGY | | + + + + + + | ALT (SGPT) | 21 | 13 - 48 U/L | [facility] | | | | | | DEPARTMENT | | | | | | OF | | | | | | PATHOLOGY | | + + + + + + | EGFR | > 60 | >60 mL/min | [facility] | | | - | | | DEPARTMENT | | | [facility] | | | OF | | | | | | PATHOLOGY | | + + + + + + | EGFR NON | > 60Comment: GFR is | >60 mL/min | [facility] | | | -JAY | estimated using the MDRD | | DEPARTMENT | | | RICAN | equation recommended by | | OF | | | | theNational Kidney | | PATHOLOGY | | | | Disease Education | | | | | | Program. Estimated GFR | | | | | | Interpretive | | | | | | Information: <60 | | | | | | mL/min/1.73 sq m | | | | | | Chronic Kidney Disease | | | | | | <15 mL/min/1.73 sq m | | | | | | Kidney Failure | | | | | | Estimated GFR greater | | | | | | than 60mL/min/1.73 is of | | | | | | limited clinical Value. | | | | | | The MDRD equation is | | | | | | not valid in the | | | | | | following situations: - | | | | | | Patients under 18 years | | | | | | of age - Severe | | | | | | malnutrition or obesity | | | | | | - Vegetarian diet - | | | | | | Rapidly changing kidney | | | | | | function | | | | + + + + + + | ANION GAP | 6 | 4 - 11 mmol/L | [facility] | | | | | | DEPARTMENT | | | | | | OF | | | | | | PATHOLOGY | | + + + + + + | ANION | 6 | 4 - 11 mmol/L | [facility] | | | GAP(ALB | | | DEPARTMENT | | | CORRECTED) | | | OF | | | [...] [facility] | [address] | [place] [address] | | | PATHOLOGY | [address] | | | + + + + + documented in this encounter Visit Diagnoses + + | Diagnosis | + + | Osteopenia Disorder of bone and cartilage, unspecified | + + documented in this encounter"
--- OUTSIDE RECORDS SUMMARY | ~2020-05-04 | XMS | Encounter Summary ---
Demographics + + + | Address | [address] | | | [place] [address] | + + + | Home Phone | | + + + | Preferred Language | Unknown | + + + | Marital Status | | + + + | Faith Affiliation | CHR | + + + | Race | White | + + + | Ethnic Group | Not or | + + + Author + + + | Author | [facility] | + + + | Organization | [facility] | + + + | Address | Unknown | + + + | Phone | Unavailable | + + + Support + + + + + | Name | Relationship | Address | Phone | + + + + + | Gene Gee | ECON | [address] | | | | | [place], | | | | | [place] [address] | | + + + + + Care Team Providers + +------+ + | Care Inspector Machine Parts Name | Role | Phone | + [...] + + + | Closed | | Gastroenterol | Diagnoses | Pommier, | Gas Endo | | | | ogy | Carcinoma | MD Luís | [facility] [address] | | | | | in situ of | [address] | | | | | breast | Ave | [place] | | | | | Procedures | [place], [place] | [address], [address] | | | | | CONSULT TO | [address] | floor | | | | | ADULT GI | Phone: | [place], [place] | | | | | PROCEDURE | [phone] | [address] | | | | | UNIT: | Fax: | Phone: | | | | | COLONOSCOPY | [phone] | [phone] | | | | | | | Fax: | | | | | | | [phone] | +--------+--------+ + + + + Consultation (Routine) +--------+--------+ + + + + | Status | Reason | Specialty | Diagnoses / | Referred By | Referred To | | | | | Procedures | Contact | Contact | +--------+--------+ + + + + | Closed | | Hematology & | Diagnoses | Pomerica, | Zzhem | | | | Oncology | Carcinoma | MD Luís | Faculty [facility] | | | | | in situ of | [address] | [address] | | | | | breast | Ave | Ave | | | | | Procedures | [place], [place] | Mailcode: | | | | | CONSULT TO | [address] | [address] | | | | | HEMATOLOGY / | Phone: | for Health | | | | | ONCOLOGY | [phone] | and Healing, | | | | | PRACTICE | Fax: | [facility], | | | | | | [phone] | [facility] Floor | | | | | | | [place], [place] | | | | | | | [address] | | | | | | | Phone: | | | | | | | [phone] | | | | | | | Fax: | | | | | | | [phone] | +--------+--------+ + + + + Reason for Visit + + + | Reason | Comments | + + + | Follow-up visit | | + + + Encounter Details +--------+---------+ + + + | Date | Type | Department | Care Team | Description | +--------+---------+ + + + | 04/25/ | Office | [facility] | Luís Heart, | 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 | Visit | at [facility] [address] | MD [address] | Breast (Primary Dx) | | | | [place] | [place], [place] | | | | | Jacek/[id number] [facility] | [address] | | | | | [facility], | [phone] | | | | | [place] [address] | | | | | | [phone] | | | +--------+---------+ + + + [...] + + + | Blood Pressure | 108/68 | 04/25/2007 3:36 PM | | | | | PDT | | + + + + + | Pulse | 90 | 04/25/2007 3:36 PM | | | | | PDT | | + + + + + | Temperature | 37.1 C (98.7 F) | 04/25/2007 3:36 PM | | | | | PDT [...] + + + + | Weight | - | - | | + + + + + | Height | - | - | | + + + + + | Body Mass Index | - | - | | + + + + + documented in this encounter Progress Notes Luís Heart - 04/25/2007 4:32 PM PDTCarol is back after undergoing placement of a medi port and a completion right axillary dissection. She has no problems after surgery. Her TIMOTHY o utput is minimal. She asks to be referred to GI for upper and lower endoscopy at the request of her PCP. On examination, wounds are all clean and dry. SURGICAL PATHOLOGY (no units) Date Value Low High Status 04/19/2007 SOURCE OF SPECIMEN:A Right Axillary contents Final Pathologic Diagnosis: Lymph nodes, right axillary, dissection: - Sixteen lymph nodes, negative for malignancy (0/1 6) - Fibrosis and granulation tissue consistent with biopsy site changes Case reviewed by: Eleonora Gonzalez/Student Fellow Julia Albright, Ph.D., M.D./Pathologist :zandra I bhakta ve reviewed all diagnostic slides and have edited the gross and/or microscopic portion of th is report as part of my pathologic assessment and final diagnosis. Clinical History: The abena leyva is a 61-year-old female with right breast cancer. Gross Description: One specimen is received fresh in a container labeled with the patient name (initials CB) and "right axillar y contents." Received is one unoriented, yellow, lobular, hemorrhagic fragment that measure s 8.5 x 8.0 x 2.0 cm and weighs 62 grams. There is a smooth surface that measures 3.3 x 3.0 cm (possible biopsy cavity surface). On dissection of the specimen, there is an area of ma tted tissue with involved suture. Twenty-one possible lymph nodes are dissected and range i n size from 0.5 x 0.5 x 0.5 cm to 3.0 x 1.8 x 1.5 cm. All lymph nodes are submitted. Casse tte Index: A1, section of mucosal area A2, section of matted suture material A3, five possib le lymph nodes A4, two possible lymph nodes A5, one possible lymph node, bisected A6, two po ssible lymph nodes, one inked black the other bisected A7, two possible lymph nodes A8, one possible lymph node A9, one possible lymph node, bisected A10, one possible lymph node, bise cted A11, one possible lymph node A12, one possible lymph node A13, one possible lymph node A14, one possible lymph node A15, one possible lymph node, bisected NG:lab Rendering Diagnos tician: Julia Albright Ph.D., M.D. Pathologist Electronically Signed 04/23/2007 Final Value: SOURCE OF SPECIMEN:A Right Axillary contents Final Pathologic Diagnosis: Lymph nodes, right axillary, dissection: - Sixteen lymph nodes, negative for malignancy (0/16) - Fibrosis and granulation tissue consistent with biopsy site changes Case reviewed by: Eleonora Gonzalez/Student Fellow Julia Albright, Ph.D., M.D./Pathologist :zandra I have reviewed all diagnostic slides and have edited the gross and/or microscopic portion of this report as part of my pathologic assessment and final diagnosis. Clinical History: The patient is a 61-year-old female with right breast cancer. Gross Description: One specimen is received fresh in a container labeled with the patient name (initials CB) and "right axillary contents." Received is one unoriented, yellow, lobular, hemorrhagic fragment that measures 8.5 x 8.0 x 2.0 cm and weighs 62 grams. There is a smooth surface that measures 3.3 x 3.0 cm (possible biopsy cavity surface). On dissection of the specimen, there is an area of matted tissue with involved suture. Twenty-one possible lymph nodes are dissected and range in size from 0.5 x 0.5 x 0.5 cm to 3.0 x 1.8 x 1.5 cm. All lymph nodes are submitted. Cassette Index: A1, section of mucosal area A2, section of matted suture material A3, five possible lymph nodes A4, two possible lymph nodes A5, one possible lymph node, bisected A6, two possible lymph nodes, one inked black the other bisected A7, two possible lymph nodes A8, one possible lymph node A9, one possible lymph node, bisected A10, one possible lymph node, bisected A11, one possible lymph node A12, one possible lymph node A13, one possible lymph node A14, one possible lymph node A15, one possible lymph node, bisected NG:lab Rendering Diagnostician: Julia Albright Ph.D., M.D. Pathologist Electronically Signed 04/23/2007 Assessment: Carcinoma of the right breast, final pStage [id number], stage I. We discussed her at Breast Conference today and we thought the best course of action would be to enroll her in [facility]. If not, then just hormone therapy. I discussed this with them for 20 minutes today. Plan: Refer to RT. Refer to GI for upper and lower endoscopy. Refer to Dr. Velazquez for consideration of [facility]. RTC in 7 weeks for evaluation of RUE ROM. 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
--- OUTSIDE RECORDS SUMMARY | ~2020-05-04 | XMS | Encounter Summary ---
Demographics + + + | Address | [address] | | | [place] [address] | + + + | Home Phone [...] + | Gene Gee | ECON | [address] | | | | | [place], | | | | | [place] [address] | | + + + + + Care Team Providers + +------+ + | Care General Counselor Name | Role | Phone | + +------+ + | Antony Ribera MD | PCP | | + +------+ + Reason for Visit + +--------+ + | Reason | Onset | Comments | | | Date | | + +--------+ + | Medication | 11/28/ | | | management | 2007 | | + +--------+ + Encounter Details +--------+ + + + + | Date | Type | Department | Care Team | Description | +--------+ + + + + | 11/28/ | Telephone | Cardiology | Monique Middleton, | Medication | | 2007 | | Arrhythmia at [facility] | IMPROVEMENT SPECIALIST | management | | | | [address] | | | | | | [facility] | | | | | | and Healing, | | | | | | [facility] | | | | | | Floor [place], [place] | | | | | | [address] | | | | | | [phone] | | | +--------+ + + + [...] encounter Miscellaneous Notes Telephone Encounter - Monique Middleton Np - 12/04/2007 9:15 AM PDTMoricizine is not availab le per pharmacy. t msg to call regarding drug to use. elephone Encounter - Katie Keita - 11/29/2007 3:27 PM PDTS Pharmacy sending notification that ethmozine has been withdrawn from the market, n o generic is available. Do you want to prescribe an alternative? documented in this encounter Plan of Treatment Not on filedocumented as of this encounter Visit Diagnoses Not on filedocumented in this encounter"
--- OUTSIDE RECORDS SUMMARY | ~2020-05-04 | XMS | Encounter Summary ---
Demographics + + + | Address | [address] | | | [place] [address] | + + + | Home Phone [...] + | Gene Sahil | ECON | [address] | | | | | [place], | | | | | [place] [address] | | + + + + + Care Team Providers + +------+ + | Care Hand Box Folder Name | Role | Phone | + +------+ + | Antony Ribera MD | PCP | | + +------+ + Encounter Details +--------+ + + + + | Date | Type | Department | Care Team | Description | +--------+ + + + + | 04/19/ | Procedure - | UNKNOWN DEPARTMENT | Documentation, | Various: OP | | 2006 | | [address] | Teaching Physician | REPORT-TE,OPERATIVE | | | Transcribed | [address] | | RE | | | | [place], [place] | | | | | | [address] | | | +--------+ + + + [...] this encounter Procedure Notes Record, Operation - 04/19/2007 12:00 AM PDTAssociated Order(s): OPERATION RECORD [id number] SAHIL Holman [id number] Date: 04/19/2007 Attending Surgeon: Henri Heart M.D. Monitoring Analyst(s): Cely Burris M.D. Preoperative Diagnosis(es): Right-sided breast cancer. Postoperative Diagnosis(es): Right-sided breast cancer. Procedures Performed: 1. Left internal jugular PowerPort placement using ultrasound. 2. Right completion axillary lymph node dissection. Anesthesia: General endotracheal anesthesia. IV Fluids: 800 mL crystalloid. Estimated Blood Loss: Minimal. Drains: One TIMOTHY drain in the right axilla. Specimens: Right axillary contents. Complications: None. Procedure in Detail: Mrs. Flynn was identified in the preoperative area and brought to the operating room after consent was reviewed. She was placed supine on the operating room table. After adequate general anesthesia, she was positioned for a port placement. After traditional sterile prep, an ultrasound was used to identify her left internal jugular vein. A small finder needle was placed into the internal jugular vein under direct visualization using ultrasound. A wire was placed into the internal jugular vein. A larger needle was passed over this followed by a general guidewire. This was confirmed to be in the venous system by fluoro. An approximately 4 cm greatest diameter pocket in the subcutaneous tissues was made in the subpectoral fascia in the left breast This was done by a scalpel using Rondon for the incision followed by Bovie electrocautery through subcutaneous tissue. The PowerPort was fixed using 3-0 Prolene sutures, interrupted, to 3 portions of the port in a fixed fashion in proper orientation. The catheter was then placed and locked on the opening to the port and passed using a dilator up to the left internal jugular access site. The dilator was used to pass over the wire and the stylet was removed and the dilator was cracked allowing the catheter to be placed within the center of this down into the left internal jugular vein to the superior vena cava. There was no evidence of significant kinking just proximal to the access site. Fluoro was used to confirm location of the port in the left chest as well as the catheter was at the superior vena cava near the right atriocaval junction. There was no evidence of kinking. The port flushed and juvenal back blood easily. The dermal layer was approximated using a 3-0 Vicryl suture and skin was closed using 4-0 Biosyn subcuticular running suture. Clean, sterile dressings were applied to all the sites. At this time we turned our attention to the right axilla, where a right axillary incision was made using the previous sentinel lymph node incision. We dissected down easily down to the pec major and latissimus dorsi for medial and lateral borders of the axilla. We dissected down to the axillary vein and began following the known axillary contents inferior. Small branching vessels were clipped and transected. The long thoracic nerve and the thoracodorsal nerve were identified and the axillary contents were removed between them. Taking down the full right axillary contents were sent for pathologic final review. Hemostasis was achieved with cautery. Then the floor was irrigated. The dermal layers were approximated using 3-0 Vicryl suture, and 4-0 Biosyn running subcuticular suture was used to close the skin. Prior to dermal closure, a 15 scalpel was used to create a small incision superior to the right axillary incision, and a 10 Anthony-Stevens drain was placed into the axilla and secured to the skin using a 2-0 nylon suture. A clean, sterile dressing was applied to the incision. All counts were correct at the end of the case. Dr. Heart was present for the critical portions of this operation. Cely Burris M.D. Henri Heart M.D. / [id number] / [id number] / [id number] / [id number] Reviewed or Edited By Cely Burris MD on 05-03-2007 Electronically signed by Henri Heart 06-12-2007 11:40:12 AM ocumentation, Teaching Physician - 04/19/2007 12:00 AM PDTAssociated Order(s): TEACHING PHYSICIAN [id number] SAHIL Holman [id number] Date: 04/19/2007 Attending Surgeon: Henri Heart M.D. Monitoring Analyst(s): Postoperative Diagnosis(es): Procedures Performed: 1. Insertion of MediPort from left internal jugular vein to the right atrium. 2. Right completion axillary dissection. I was present and scrubbed for the entire case. Henri Heart M.D. / [id number] / [id number] / [id number] / [id number] Electronically signed by Henri Heart 06-12-2007 11:40:06 AM documented in this encou nter Plan of Treatment Not on filedocumented as of this encounter Procedures + +--------+ + + + | Procedure Name | Priori | Date/Time | Associated Diagnosis | Comments | | | ty | | | | + +--------+ + + + | TEACHING PHYSICIAN | | 04/19/2007 | | Results for this | | | | 12:00 AM | | procedure are in the | | | | PDT | | results section. | + +--------+ + + + | OPERATION RECORD | | 04/19/2007 | | Results for this | | | | 12:00 AM | | procedure are in the | | | | PDT | | results section. | + +--------+ + + + documented in this encounter Results OPERATION RECORD (04/19/2007 12:00 AM PDT) + + | Procedure Note | + + | 04/19/2007 12:00 AM PDT | | [id number] | | [id number] SAHIL Holman [id number] | | | | Date: 04/19/2007 | | | | Attending Surgeon: Henri Heart M.D. | | | | | | Monitoring Analyst(s): Cely Burris M.D. | | | | | | Preoperative Diagnosis(es): | | Right-sided breast cancer. | | | | Postoperative Diagnosis(es): | | Right-sided breast cancer. | | | | Procedures Performed: | | 1. Left internal jugular PowerPort placement using ultrasound. | | 2. Right completion axillary lymph node dissection. | | | | | | Anesthesia: | | General endotracheal anesthesia. | | | | IV Fluids: | | 800 mL crystalloid. | | | | Estimated Blood Loss: | | Minimal. | | | | Drains: | | One TIMOTHY drain in the right axilla. | | | | Specimens: | | Right axillary contents. | | | | Complications: | | None. | | | | Procedure in Detail: | | Mrs. Flynn was identified in the preoperative area and brought to the | | operating room after consent was reviewed. She was placed supine on the | | operating room table. After adequate general anesthesia, she was | | positioned for a port placement. After traditional sterile prep, an | | ultrasound was used to identify her left internal jugular vein. A small | | finder needle was placed into the internal jugular vein under direct | | visualization using ultrasound. A wire was placed into the internal | | jugular vein. A larger needle was passed over this followed by a general | | guidewire. This was confirmed to be in the venous system by fluoro. An | | approximately 4 cm greatest diameter pocket in the subcutaneous tissues was | | made in the subpectoral fascia in the left breast This was done by a | | scalpel using Rondon for the incision followed by Bovie electrocautery | | through subcutaneous tissue. The PowerPort was fixed using 3-0 Prolene | | sutures, interrupted, to 3 portions of the port in a fixed fashion in | | proper orientation. The catheter was then placed and locked on the opening | | to the port and passed using a dilator up to the left internal jugular | | access site. The dilator was used to pass over the wire and the stylet was | | removed and the dilator was cracked allowing the catheter to be placed | | within the center of this down into the left internal jugular vein to the | | superior vena cava. There was no evidence of significant kinking just | | proximal to the access site. Fluoro was used to confirm location of the | | port in the left chest as well as the catheter was at the superior vena | | cava near the right atriocaval junction. There was no evidence of kinking. | | The port flushed and juvenal back blood easily. The dermal layer was | | approximated using a 3-0 Vicryl suture and skin was closed using 4-0 Biosyn | | subcuticular running suture. Clean, sterile dressings were applied to all | | the sites. | | | | At this time we turned our attention to the right axilla, where a right | | axillary incision was made using the previous sentinel lymph node incision. | | We dissected down easily down to the pec major and latissimus dorsi for | | medial and lateral borders of the axilla. We dissected down to the | | axillary vein and began following the known axillary contents inferior. | | Small branching vessels were clipped and transected. The long thoracic | | nerve and the thoracodorsal nerve were identified and the axillary contents | | were removed between them. Taking down the full right axillary contents | | were sent for pathologic final review. Hemostasis was achieved with | | cautery. Then the floor was irrigated. The dermal layers were | | approximated using 3-0 Vicryl suture, and 4-0 Biosyn running subcuticular | | suture was used to close the skin. Prior to dermal closure, a 15 scalpel | | was used to create a small incision superior to the right axillary | | incision, and a 10 Anthony-Stevens drain was placed into the axilla and | | secured to the skin using a 2-0 nylon suture. A clean, sterile dressing | | was applied to the incision. All counts were correct at the end of the | | case. Dr. Heart was present for the critical portions of this operation. | | | | | | | | | | | | Cely Burris M.D. | | | | | | | | Henri Heart M.D. | | | | AC / HS | | [id number] / [id number] / [id number] / [id number] | | | | | | | | | | | | Reviewed or Edited By Cely Burris MD on 05-03-2007 | | Electronically signed by Henri Heart 06-12-2007 11:40:12 AM | | | | | + + TEACHING PHYSICIAN (04/19/2007 12:00 AM PDT) + + | Procedure Note | + + | 04/19/2007 12:00 AM PDT | | [id number] | | [id number] [facility] [id number] | | | | Date: 04/19/2007 | | | | Attending Surgeon: Henri Heart M.D. | | | | | | Monitoring Analyst(s): | | | | Postoperative Diagnosis(es): | | | | Procedures Performed: | | 1. Insertion of MediPort from left internal jugular vein to the right | | atrium. | | 2. Right completion axillary dissection. | | | | | | I was present and scrubbed for the entire case. | | | | | | | | | | Henri Heart M.D. | | | | RP / HS | | [id number] / [id number] / [id number] / [id number] | | | | | | | | | | | | Electronically signed by Henri Heart 06-12-2007 11:40:06 AM | | | | | + + documented in this encounter Visit Diagnoses Not on filedocumented in this encounter"
--- OUTSIDE RECORDS SUMMARY | ~2020-05-04 | XMS | Encounter Summary ---
Demographics + + + | Address | [address] | | | [place] [address] | + + + | Home Phone | | + + + | Preferred Language | Unknown | + + + | Marital Status | | + + + | Voodoo Affiliation | CHR | + + + [...] + | Gene Gee | ECON | [address] | | | | | [place], | | | | | [place] [address] | | + + + + + Care Team Providers + +------+ + | Care Grinder Set Up Operator External Name | Role | Phone | + +------+ + | Antony Ribera MD | PCP | | + +------+ + Encounter Details +--------+------+ + + + | Date | Type | Department | Care Team | Description | +--------+------+ + + + | 06/02/ | Lab | Laboratory at [facility] | | Disorder of bone and | | 2014 | | [address] | | cartilage | | | | Loop Physician's | | | | | | [place], [address] [place] [address] | | | | | | [place], [place] | | | | | | [address] | | | | | | [phone] | | | +--------+------+ + + + [...] + | VITAMIN D, | Routin | 06/02/2015 | Disorder of bone | Results for this | | 25-HYDROXY, SERUM | e | 1:43 PM | and cartilage | procedure are in the | | | | PST | | results section. | + +--------+ + + + documented in this encounter Results VITAMIN D, 25-HYDROXY, SERUM (06/02/2015 1:43 PM PST) + +-------+ + + + | Component | Value | Ref Range | Performed | Pathologist | | | | | At | Signature | + +-------+ + + + | VITAMIN D | 44.6 | 30 - 80 ng/mL | [facility] | | | 25 HYDROXY | | | LABORATORY | | | | | | SERVICES, | | | | | | SPECIAL IMM | | | | | | + COAG | | + +-------+ + + + + + | Specimen | + + | Blood | + + + + + | Narrative | Performed At | + + + | REFERENCE INTERVAL: Vitamin D, 25-Hydroxy 0-17years: | [facility] | | Deficiency: less than 20 ng/mL Optimum level: | LABORATORY | | greater than or equal to 20 ng/mL* | SERVICES, | | *(Evangelista CL et al. Pediatrics 2008; 122:1128-38.) 18 | SPECIAL IMM + | | years and older: Deficiency: less than 20 | COAG | | ng/mL Insufficiency: 20-29 ng/mL | | | Optimum Level: 30-80 ng/mL High: | | | 81-150 ng/ml Toxic: Greater than | | | 150 ng/mL This assay accurately quantifies the sum of Vitamin D3 | | | 25-hydroxy and Vitamin D2, 25-hydroxy. Reference range | | | change effective 02/06/2013. 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
--- OUTSIDE RECORDS SUMMARY | ~2020-05-04 | XMS | Encounter Summary ---
Demographics + + + | Address | [address] | | | [place] [address] | + + + | Home Phone | | + + + | Preferred Language | Unknown | + + + | Marital Status | | + + + | Caodaism Affiliation | CHR | + + + [...] + | Gene Gee | ECON | [address] | | | | | [place], | | | | | [place] [address] | | + + + + + Care Team Providers + +------+ + | Care Drug Safety Specialist Name | Role | Phone | + +------+ + | Antony Ribera MD | PCP | | + +------+ + Reason for Visit + + + | Reason | Comments | + + + | Procedure | | + + + Encounter Details +--------+ + + + + | Date | Type | Department | Care Team | Description | +--------+ + + + + | 09/05/ | Procedure | Surgical Oncology | Luís Heart, | Procedure | | 2007 | | - Breast Clinic | MD [address] | | | | | [address] | [place], [place] | | | | | Mailcode: [facility] | [address] | | | | | [facility] | [phone] | | | | | and Healing, | | | | | | [facility] | | | | | | Floor [facility] [place] | | | | | | [address] | | | | | | [phone] | | | +--------+ + + + [...] + + + | Blood Pressure | 121/56 | 09/05/2007 2:07 PM | | | | | PST | | + + + + + | Pulse | 83 | 09/05/2007 2:07 PM | | | | | PST | | + + + + + | Temperature | 36.7 C (98 F) | 09/05/2007 2:07 PM | | | | | PST [...] this encounter Progress Notes Luís Heart - 09/05/2007 3:03 PM PSTCarol had her mediport removed under local anesthe tic. This operative note has been dictated. She will follow up with Dr. Velazquez and return here prn. LUÍS [facility] MD brace end [facility] former Division of Surgical Oncology MailCode [id number] [place], [place] [address] irmalaJustice basilio Keren - 2007 2:28 PM PSTHPI: Adriana is a pleasant 61-year-old female with a history of rig ht-sided breast cancer. 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 Tumor was grade 1 to grade 2, receptor positive, and HER-2 negative for gene a mplification by FISH. Two axillary lymph nodes were involved with isolated tumor cells only. Completion axillary lymph node dissection found no additional lymph node involvement. Oncot ype testing sees low recurrence score with endocrine therapy. She is currently receiving ad juvant chemo with Taxotere and cytoxan every three weeks s/p her fourth cycle of treatment 08/26/2007. Presents to clinic for removal of L IJ power port as pt has completed her chemotherapeutic regimen. ROS: negative per my interview. PE: BP 121/56 | Pulse 83 | Temp (Src) 98 F (36.7 C) (Oral) Gen: NAD Cor: RRR Chest: well healed incision over L chest port site Pulm:CTAB Abd: soft, benign Ext: WWP no C/C/E A/P: 61F with R breast CA s/p mastectomy s/p chemo and endocrine therapy. Port d/c'd - see operative note Pt. May follow up with her medical oncologist; may return to clinic PRN. Pt. Seen and evaluated with Dr. Heart, who agrees with above. Justice Zaragoza MD. JUSTICE ZARAGOZA MD SURGICAL ONCOLOGY - BREAST CLINIC MailCode L[address], [place] [address] documented in this encou nter Plan of Treatment Not on filedocumented as of this encounter Visit Diagnoses + + | Diagnosis | + + | Breast cancer (HCC) - Primary Malignant neoplasm of breast (female), unspecified site | + + documented in this encounter"
--- OUTSIDE RECORDS SUMMARY | ~2020-05-04 | XMS | Encounter Summary ---
Demographics + + + | Address | [address] | | | [place] [address] | + + + | Home Phone | | + + + | Preferred Language | Unknown | + + + | Marital Status | | + + + | Buddhist Affiliation | CHR | + + + | Race | White | + + + | Ethnic Group | Not or | + + + Author + + + | Author | [facility] | + + + | Organization | [facility] | + + + | Address | Unknown | + + + | Phone | Unavailable | + + + Support + + + + + | Name | Relationship | Address | Phone | + + + + + | Gene Gee | ECON | [address] | | | | | [place], | | | | | [place] [address] | | + + + + + Care Team Providers + +------+ + | Care Paring Machine Operator Name | Role | Phone | + +------+ + | Antony Ribera MD | PCP | | + +------+ + Encounter Details +--------+ + + + + | Date | Type | Department | Care Team | Description | +--------+ + + + + | 03/20/ | Documentati | Anesthesiology | Unknown . | | | 2006 | on | [address] | | | | | | [place], | | | | | | [place] [address] | | | +--------+ + + + [...] documented as of this encounter Procedure Notes Unknown - 03/20/2007 11:28 AM PDTAssociated Order(s): ANESTHESIA/SEDATION Anesthesia PostO p Report Patient: ADRIANA BAXTER [employer] Rec: [id number] Sex F Bdate: 1945 Date/Time Data Entered Into [facility] Anesth PostOp Surgery Date 03/20/07 11:28 [id number] 06/30/04 10:58 Anesthesiologist GEOVANNA BLEVINS 03/20/07 11:28 RAVI ERICKSON 06/30/04 10:58 Resident Anesthesiolog EDITA RYDER 03/20/07 11:28 AILYN ANTONIO 06/30/04 10:58 Complications Arrhythmia YES 07/01/04 08:33 Cause Postop Complication 07/01/04 08:33 PT WITH HISTORY OF TACHYARRHYTHMIAS. WENT INTO SVT ON POD2. ELIAS QUESADA STABLE ON AMIODARONE DRIP. Outcomes Information Satisfied with care YES 07/01/04 08:33 Info obtained from PATIENT 07/01/04 08:33 Outcome of Anesthesia NO CHANGE IN HOSPITAL COURSE 07/01/04 08:33 documented in this encounter Plan of Treatment Not on filedocumented as of this encounter Procedures + +--------+ + + + | Procedure Name | Priori | Date/Time | Associated Diagnosis | Comments | | | ty | | | | + +--------+ + + + | ANESTHESIA/SEDATION | | 03/20/2007 | | Results for this | | | | 11:28 AM | | procedure are in the | | | | PDT | | results section. | + +--------+ + + + documented in this encounter Results ANESTHESIA/SEDATION (03/20/2007 11:28 AM PDT) + + + | Narrative | Performed At | + + + | Ordered by an unspecified provider. | | + + + + + | Transcriptions | + + | 03/20/2007 11:28 AM PDT Anesthesia PostOp Report | | | | Patient: ADRIANA BAXTER [employer] Rec: [id number] Sex F Bdate: 1945 | | Date/Time Data | | Entered Into [facility] | | Anesth PostOp | | Surgery Date 03/20/07 11:28 | | [id number] 06/30/04 10:58 | | Anesthesiologist GEOVANNA BLEVINS 03/20/07 11:28 | | RAVI ERICKSON 06/30/04 10:58 | | Resident Anesthesiolog EDITA RYDER 03/20/07 11:28 | | AILYN ANTONIO 06/30/04 10:58 | | Complications | | Arrhythmia YES 07/01/04 08:33 | | Cause Postop Complication 07/01/04 08:33 | | PT WITH HISTORY OF TACHYARRHYTHMIAS. WENT INTO SVT ON POD2. ELIAS | | NTLY STABLE ON AMIODARONE DRIP. | | Outcomes Information | | Satisfied with care YES 07/01/04 08:33 | | Info obtained from PATIENT 07/01/04 08:33 | | Outcome of Anesthesia NO CHANGE IN HOSPITAL COURSE 07/01/04 08:33 | | | + + documented in this encounter Visit Diagnoses Not on filedocumented in this encounter"
--- OUTSIDE RECORDS SUMMARY | ~2020-05-04 | XMS | Encounter Summary ---
Demographics + + + | Address | [address] | | | [place] [address] | + + + | Home Phone [...] + | Gene Gee | ECON | [address] | | | | | [place], | | | | | [place] [address] | | + + + + + Care Team Providers + +------+ + | Care Oracle Soa Developer Name | Role | Phone | + +------+ + | Antony Ribera MD | PCP | | + +------+ + Reason for Visit +---------+ + | Reason | Comments | +---------+ + | Post Op | 1 week follow up | +---------+ + Global Period - Transplant [...] | | | | | | | [address] | | [address] | | [address] | | | | | | | [place] for | | | | | | | Health and | | | | | | | Healing, | | | | | | | Building [address], | | | | | | | 5th Floor | | | | | | | [place], [place] | | | | | | | [address] | | | | | | | Phone: | | | | | | | [phone] | +--------+--------+ + + + + Encounter Details +--------+---------+ + + + | Date | Type | Department | Care Team | Description | +--------+---------+ + + + | 12/19/ | Office | Plastic and | Santiago Hu, | Acquired Absence of | | 2012 | Visit | Reconstructive | PA-C [address] | Breast (Primary Dx) | | | | Surgery at [facility] [address] [place] [address] | | | | | [facility] | [address] [place], [place] | | | | | for Health and | [id number] | | | | | [place] [address], | | | | | | [address] [place] [address] | | | | | | [facility] [place] | | | | | | [address] | | | | | | [phone] | | | +--------+---------+ + + + [...] +---------+ + + | Blood Pressure | 119/69 | 12/19/2012 11:27 AM | | | | | PDT | | + +---------+ + + | Pulse | - | - | | + +---------+ + + | Temperature | - | - | | + +---------+ + + | Respiratory Rate | - | - | | + +---------+ + + | Oxygen Saturation | - [...] + documented in this encounter Progress Notes Santiago Berumen - 12/19/2012 12:03 PM PDTPlastic and Reconstructive Surgery Post-operative Visit HPI: Adriana Flynn is a 67 y.o. female who presents today status-post right TE exchange to impla nt and left breast reduction on 10/04/12. She has had a persistent open draining wound on th e left breast for the past two weeks. She reports much improved since her visit last week; d ecrease pain and redness. She has been cleaning the area with soap and water and applying Ne osporin. She has been taking her abx as prescribed and reports no issues with taking the med ication. Her pain control is good. She is currently taking nothing for pain. Here today for recheck. Denies constitutional sxs. Denies fever, chills, fatigue. PE: Vitals: BP 119/69 General Appearance: Well-developed, well-nourished female in no apparent distress. Left Breast: overall shape and contour are good. Incisions are well healed with a thin, pin k, flat scar tissue. Wound along vertical incision is healing, to shallow to pack. Erythema as resolved. It has no surrounding induration. There is no fluctuance. Tenderness resolved. No acute drainage. Impression: S/P: right TE exchange to implant and left breast reduction Healing stitch abscess Plan: -Reviewed wound care. Patient instructed to wash wound daily. Use soap and running water da yin. Avoid saunas, hot tubs, swimming pools, and bathing in standing water until advised oth erwise. Change the dressing every day and apply abx ointment. -F/U with Dr Gold next month as scheduled, sooner prn. The patient indicates understanding of these issues and agrees to the plan. Santiago Hu PA-C Dept Plastic/Reconstructive Surgery [facility] Electronically signed on 12/19/2012 at 12:04 PM SANTIAGO HU PA-C. 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
--- OUTSIDE RECORDS SUMMARY | ~2020-05-04 | XMS | Encounter Summary ---
Demographics + + + | Address | [address] | | | [place] [address] | + + + | Home Phone | | + + + | Preferred Language | Unknown | + + + | Marital Status | | + + + | Yarsanism Affiliation | CHR | + + + [...] + | Gene Gee | ECON | [address] | | | | | [place], | | | | | [place] [address] | | + + + + + Care Team Providers + +------+ + | Care Roll Builder Name | Role | Phone | + +------+ + | Antony Ribera MD | PCP | | + +------+ + Reason for Visit + + + | Reason | Comments | + + + | Postoperative visit | EVRF and phleb left leg on 08/24/09 | + + + Encounter Details +--------+---------+ + + + | Date | Type | Department | Care Team | Description | +--------+---------+ + + + | 10/12/ | Office | Vascular Surgery | Red Greer MD | Varicose veins of | | 2009 | Visit | Vein Clinic at [facility] | [address] | lower extremities | | | | [address] | [facility], | with other | | | | [facility] | [place] [address] | complications | | | | and Healing, | [phone] | (Primary Dx) | | | | | | | | | | Floor [place], [place] | | | | | | [address] | | | | | | [phone] | | | +--------+---------+ + + + [...] documented as of this encounter Progress Notes Red Greer MD - 10/25/2009 12:56 PM [facility] at [facility] Referring Physician: NO REFERRING PROVIDER PER PT NO REFERRING PROVIDER PER PT History of Present Ilness: Ms. Flynn is an 64 y.o. female who is status-post left leg endovenous radiofrequency ablati on of the great saphenous vein. The patient reports minimal ecchymosis along the course of t he saphenous vein and varicose veins microphlebectomy sites. Most have resolved. She is very pleased with the procedure and the cosmetic and clinical results. Physican Examination: The patient appears heatlhy. There is no further ecchymosis along the course of the left gr eat saphenous vein. The microphlebectomy incision sites are healing very well. Both lower ex tremities are warm and pink, with no cyanosis or edema. Limited duplex examination of the left sapheno-femoral junction demonstrates a compressible deep vein, without evidence for deep venous thrombosis. The left great saphenous vein is oc cluded and non-compressible, as expected. Assessment and Plan: The patient is doing very well status-post endovenous radiofrequency ablation of the left g reat saphenous vein. The patient was counseled regarding the need for long-term compression stockings, and the risk for recurrent varicose veins. Ms. Flynn will return to the Vein Clin ic as needed. RED GREER MD VASCULAR SURGERY VEIN CLINIC [address] [place] [address] Mailcode: Op11 [facility], [address] [facility] [address] documented in this enco unter Miscellaneous Notes Scan - Other, Faculty - 08/19/2009 12:00 AM PSTAssociated Order(s): ORDERS OTHER documented in this encou nter Plan of Treatment Not on filedocumented as of this encounter Procedures + +--------+ + + + | Procedure Name | Priori | Date/Time | Associated Diagnosis | Comments | | | ty | | | | + +--------+ + + + | ORDERS OTHER | | 08/19/2009 | | Results for this | | | | 12:00 AM | | procedure are in the | | | | PST | | results section. | + +--------+ + + + documented in this encounter Results ORDERS OTHER (08/19/2009 12:00 AM PST) + + + | Narrative | Performed At | + + + | | | + + + + + | Procedure Note | + + | Gisele Strong - 08/19/2009 12:00 AM PST | | | + + documented in this encounter Visit Diagnoses + + | Diagnosis | + + | Varicose veins of lower extremities with other complications - Primary | + + documented in this encounter"
--- OUTSIDE RECORDS SUMMARY | ~2020-05-04 | XMS | Encounter Summary ---
Demographics + + + | Address | [address] | | | [place] [address] | + + + | Home Phone | | + + + | Preferred Language | Unknown | + + + | Marital Status | | + + + | Pentecostalism Affiliation | CHR | + + + [...] + | Gene Sahil | ECON | [address] | | | | | [place], | | | | | [place] [address] | | + + + + + Care Team Providers + +------+ + | Care Woodworking Machine Operator Name | Role | Phone | + +------+ + PCP | Unavailable | + +------+ + Encounter Details +--------+ + + + + | Date | Type | Department | Care Team | Description | +--------+ + + + + | 06/29/ | Procedure - | | Documentation, | OP REPORT-TEACHING | | 2004 | | | Teaching Physician | | | | Transcribed | | | | +--------+ + + [...] documented as of this encounter Procedure Notes Interface, Nutrition Services Worker In - 07/22/2005 4:47 AM PST [id number] SAHIL Holman Date: 06/29/2004 Attending Surgeon: Katie Callahan M.D. Cork Tile Floor Layer(s): This is an addendum to the operative note dictated by Dr. Raymond Hansen, chief resident. Preoperative Diagnosis(es): Symptomatic large simple hepatic cysts. Postoperative Diagnosis(es): Symptomatic large simple hepatic cysts. Procedures Performed: Cystectomy and marsupialization and sclerosis of multiple cysts in addition to unroofing of multiple cysts, and argon beam treatment of the cyst edge. A total of 16 cysts were treated. Anesthesia: General anesthesia, endotracheal tube. History: The patient is a 58-year-old woman with a history of multiple hepatic cysts which had recently grown in size and recently in March 2004 became significantly symptomatic. She had 10/10 right upper quadrant pain, and CT scan in March 2004 revealed growth of one of the large cyst in the right lobe of the liver, segments 5 and 8, and some hemorrhage into the cyst. The patient now is here for surgical treatment, and she has had multiple previous abdominal operations and has multiple cysts, a total of approximately [address] scan imaging, and the plan will be to perform cystectomy, marsupialization, and sclerosis. Findings: Intraoperatively, the patient had numerous cysts in the liver; 1 between segment 2 and 4 which was sent for frozen section of the wall, and this was benign, and then, the remainder of the wall was excised and sent for permanent section. Then, alcohol sclerosis was performed and marsupialization. There was a second cyst segment between segments 2 and 3, and the wall was sent for permanent after removal, and the cyst was argon beam lasered. In segment 2, the cyst was just off the left lateral segment and was completely excised and sent for frozen and was benign. In segment 2, cyst number 2 was sent for permanent after excision. Alcohol sclerosis was performed, and argon beam lasered. Then, segment 4, there were 6 total cysts excised, and there was a seventh that was aspirated. Numbers 1, 2, and 6 bardales were sent for permanent. The largest underwent alcohol sclerosis, and all were argon beamed. Numbers 3 through 6 were unroofed and argoned, and as mentioned, #7 was aspirated. Segments 5 and 8, large cyst wall was sent for permanent. This was the largest cyst encountered in the segments 5 and 8, and the cyst was completely excised on the roof side and then marsupialized with 3-0 Prolene and alcohol sclerosis. Then, segment 7 underwent a cystectomy, and the wall was sent for permanent, and this was marsupialized, and alcohol sclerosed, and then, the cyst wall between segments 7 and 8 underwent alcohol and excision, and then sent for permanent. There were 3 small cysts which were unroofed in segment 6, and therefore, there were total of 17 cysts, 16 were treated with unroofing cystectomy and one was aspirated. The patient had some adhesions due to previous laparoscopic cholecystectomy and left hemicolectomy. Her liver appeared normal, other than being slightly fatty. Procedures : The patient was brought into the Operating Room and placed in supine position. After successful induction of general anesthesia, bilateral subcostal incision was made with a midline extension. Omni retractor was exposure and retraction, and a falciform ligament was identified, ligated, and divided. The ligament of Treitz was taken down. The left triangular ligament was taken down, and cysts were notified in segment 4, just between segments 2 and 4, a large cyst, cyst wall was then excised and sent for frozen section, found to be benign, and then, the remainder of the cyst wall was excised and sent for permanent. This cyst underwent marsupialization with 3-0 running Prolene and then alcohol sclerosis. Subsequent cyst was found in between segments 2 and 3, and the wall was excised. The cyst was argon beamed, and the cyst wall was sent for permanent. Then, in segment 2, there were 2 cysts found, 1 was excised and sent for frozen which was benign, and this was completely excised at the left lateral segment, and there segment 2 found, there was a second cyst that was found, and this was excised. The wall was sent for permanent, and the cyst was sclerosed in alcohol and argon beam lasered. Subsequently, in segment 4, there were 6 cysts in total which were excised and the seventh aspirated. Cyst numbers 1, 2, and 6 wall was sent for permanent. The largest of these cysts underwent total excision of the wall, sclerosed it with alcohol, and argon beam. The remainder of them were treated with argon beam laser. Cyst numbers 3 and 6 were unroofed and argon beam lasered. Between segments 5 and 8, there was a largest cyst, and this was that cyst that obviously had ruptured and that had bled internally. This cyst was approximately 15 x 12 cm in size. The roof of the wall was completely excised and sent for permanent. Then, marsupialized with 3-0 running Prolene. Alcohol sclerosis was performed. In segment 7, subsequent cyst was found which was approximately 3 x 4 cm in size, and the wall was excised and sent for permanent, and this was marsupialized with 3-0 running Prolene, and alcohol sclerosis was performed. Then, there was a cyst wall between the cysts in segments 8 and 7, and this was excised and then sent for permanent, and alcohol sclerosis was performed on this in addition, the marsupialization, and 3 more small cysts were found in segment 6, and these were unroofed leaving a total of 17 cysts. After completion of all of these treatments, the abdomen was irrigated copiously with normal saline. Of note, the alcohol used was 75% alcohol, and this was used as a sclerosing agent. Subsequently, #19 round Anthony-Stevens was placed behind the right lobe of the liver for drainage, and brought out through a small incision to the right abdominal wall and sewn in with a 2-0 nylon and put to bulb suction. The sponge and needle counts were then correct, and the abdomen was closed with a #1 running Maxon in 2 layers. The skin was approximated with rufino, and the wound was then dressed sterilely with ABD and Flexinet. The patient was allowed to emerge from anesthesia, was extubated, and taken to the Recovery Room in excellent condition. There were no complications. EBL was approximately 25 mL. Remainder of the fluids to be dictated by Dr. Hansen. Katie Callahan M.D. [facility] Division of Liver and Pancreas Trans[facility] [place] / [id number] / [id number] / [id number] / Liver Transplant [id number] Electronically signed by Katie Callahan 07-25-2004 03:38:46 PM documented i n this encounter Plan of Treatment Not on filedocumented as of this encounter Procedures + +--------+ + + + | Procedure Name | Priori | Date/Time | Associated Diagnosis | Comments | | | ty | | | | + +--------+ + + + | TEACHING PHYSICIAN | | 06/29/2004 | | | + +--------+ + + + documented in this encounter Visit Diagnoses Not on filedocumented in this encounter"
--- OUTSIDE RECORDS SUMMARY | ~2020-05-04 | XMS | Encounter Summary ---
Demographics + + + | Address | [address] | | | [place] [address] | + + + | Home Phone | | + + + | Preferred Language | Unknown | + + + | Marital Status | | + + + | Worship Affiliation | CHR | + + + | Race | White | + + + | Ethnic Group | Not or | + + + Author + + + | Author | [facility] | + + + | Organization | [facility] | + + + | Address | Unknown | + + + | Phone | Unavailable | + + + Support + + + + + | Name | Relationship | Address | Phone | + + + + + | Gene Gee | ECON | [address] | | | | | [place], | | | | | [place] [address] | | + + + + + Care Team Providers + +------+ + | Care Community Health Education Coordinator Name | Role | Phone | + +------+ + | Antony Ribera MD | PCP | | + +------+ + Reason for Visit + +--------+ + | Reason | Onset | Comments | | | Date | | + +--------+ + | Refill Request | 10/15/ | for Luke Thao. Last filled 06/25/12. | | | 2012 | | + +--------+ + Encounter Details +--------+--------+ + + + | Date | Type | Department | Care Team | Description | +--------+--------+ + + + | 10/15/ | Refill | Pulmonary & | Pete Gee, | Refill Request (for | | 2012 | | Critical Care | MD | Pulmicort Flexhaler | | | | Medicine at | | 180. Last filled | | | | [facility] | | 06/25/12.) | | | | [address] | | | | | | [address] [facility] | | | | | | [place], [facility] Floor | | | | | | [place], [place] | | | | | | [address] | | | | | | [phone] | | | +--------+--------+ + + + [...] this encounter Miscellaneous Notes Telephone Encounter - Rowan Duckworth - 10/15/2012 5:22 PM PDTFormatting of this note m ight be different from the original. Reason for Call: Chief Complaint Patient presents with Refill Request for Pulmicort Flexhaler 180. Last filled 06/25/12. Patient: Adriana Flynn: Home Phone Work Phone Last Telephone in [facility] was on 09/26/12 with Pete Gee MD. Next Appointment in [facility] is on 10/22/12 at 1:00 pm with Pete Gee MD. Pharmacy Preferences: [facility] [address] [place] [address] [facility] [place] [address] -[facility] [address] [place] [address] documented in this enc ounter Plan of Treatment Not on filedocumented as of this encounter Visit Diagnoses Not on filedocumented in this encounter"
--- OUTSIDE RECORDS SUMMARY | ~2020-05-04 | XMS | Encounter Summary ---
Demographics + + + | Address | [address] | | | [place] [address] | + + + | Home Phone | | + + + | Preferred Language | Unknown | + + + | Marital Status | | + + + | Sabianist Affiliation | 1013 | + + + | Race | White | + + + | Ethnic Group | Not or | + + + Author + + + | Author | [facility] | | | and [place] | + + + | Organization | [facility] | | | and [...] Team Providers + +------+ + | Care Scanner Operator Name | Role | Phone | + +------+ + PCP | Unavailable | + +------+ + Encounter Details +--------+ + + + + | Date | Type | Department | Care Team | Description | +--------+ + + + + | 01/03/ | Hospital | [facility] | Dilip Frias MD | | | 1998 | Encounter | MED CTR GENERIC OP | [address] | | | | | CONV DEPT [address] | [address] | | | | | [place], | [address] | | | | | [place] [address] | | | | | | [phone] | | | +--------+ + + + [...] Orthopedic Surgery | Tee Choi, | | | 2019 | Visit | | [address] | | | | | | [place] [address] | | | | | | [phone] | | | | | | | | +--------+ + + + + | 05/19/ | Appointment | Cardiology | Martin Kelley, | | 2019 | | | MD [address] | | | | | | [place], | | | | | | [place] [address] | | | | | | [phone] | | | | | | | | +--------+ + + + + | 11/26/ | Office | Cardiology | Martin Kelley, | | | 2020 | Visit | | MD [address] | | | | | | [place], | | | | | | [place] [address] | | | | | | [phone] | | | | | | | | +--------+ + + + + documented as of this encounter Visit Diagnoses Not on filedocumented in this encounter"
--- OUTSIDE RECORDS SUMMARY | ~2020-05-04 | XMS | Encounter Summary ---
Demographics + + + | Address | [address] | | | [place] [address] | + + + | Home Phone [...] + | Gene Gee | ECON | [address] | | | | | [place], | | | | | [place] [address] | | + + + + + Care Team Providers + +------+ + | Care Topographical Engineer Name | Role | Phone | + +------+ + | Antony Ribera MD | PCP | | + +------+ + Reason for Referral PROC - Outpatient Surgery (Routine) +--------+--------+ + + + + | Status | Reason | Specialty | Diagnoses / | Referred By | Referred To | | | | | Procedures | Contact | Contact | +--------+--------+ + + + + | Closed | | Plastic | Diagnoses | John | Joel | | | | Surgery | Acquired | Kelsi Peguero | Gen/Recon | | | | | absence of | [address] | [address] | | | | | breast and | [address] | [address] | | | | | nipple | [place], [place] | [facility] | | | | | Procedures | [address] | Health and | | | | | REQUEST TO | | Healing, | | | | | SURGERY | | Building 1, | | | | | SMELTER OPERATOR | | 5th Floor | | | | | [place] BREAST | | [facility] [place] | | | | | RECONSTRUC W | | [address] | | | | | TISS | | Phone: | | | | | EXPANDR [place] | | [phone] | | | | | IMPLNT OF | | | | | | | BIOLOGIC | | | | | | | IMPLNT FOR | | | | | | | SFT TISSUE | | | | | | | REINFORCE | | | +--------+--------+ + + + + Reason for Visit + + + | Reason | Comments | + + + | New patient | right Breast recon | | consultation | | + + + Consultation (Routine) +--------+--------+ + + + + | Status | Reason | Specialty | Diagnoses / | Referred By | Referred To | | | | | Procedures | Contact | Contact | +--------+--------+ + + + + | Closed | | Plastic | Diagnoses | Sro Surg | John, | | | | Surgery | Breast | Onc Chh2 | Kelsi Peguero, | | | | | cancer (HCC) | [address] | | | | | | Carcinoma | e Center | | | | | | in situ of | for Health | | | | | | breast | and Healing, | | | | | | Acquired | Building 2 | | | | | | absence of | [place], | | | | | | breast and | [place] | | | | | | nipple | [address] | | | | | | Procedures | Phone: | | | | | | CONSULT TO | [phone] | | | | | | SURGERY - | Fax: | | | | | | PLASTICS | [phone] | | +--------+--------+ + + + + Encounter Details +--------+---------+ + + + | Date | Type | Department | Care Team | Description | +--------+---------+ + + + | 04/02/ | Office | Plastic and | Kelsi Lopez | Acquired Absence of | | 2011 | Visit | Reconstructive | MD Sudhir | Breast (Primary Dx) | | | | Surgery at [facility] [address] | | | | | [address] [facility] | | | | | | for Health and | | | | | | Healing, [address], | | | | | | 5th Floor | | | | | | [place], [place] | | | | | | [address] | | | | | | [phone] | | | +--------+---------+ + + + [...] + + + | Blood Pressure | 116/69 | 04/02/2012 2:15 PM | | | | | PDT | | + + + + + | Pulse | 72 | 04/02/2012 2:15 PM | | | | | PDT | | + + + + + | Temperature | - | - | | + + + + + | Respiratory Rate | 16 | 04/02/2012 2:15 PM | | | | | PDT | | + + + + + | Oxygen Saturation | 100% | 04/02/2012 2:15 PM | | | | | PDT | | + + + + + | Inhaled Oxygen | - | - | | | Concentration | | | | + + + + + | Weight | 64.4 kg (142 lb) | 04/02/2012 2:15 PM | | | | | PDT | | + + + + + | Height | 166.4 cm (5' 5.5") | 04/02/2012 2:15 PM | | | | | PDT | | + + + + + | Body Mass Index | 23.27 | 04/02/2012 2:15 PM | | | | | PDT | | + + + + + documented in this encounter Progress Notes Ki Pichardo Md - 04/02/2012 2:21 PM PDT PLASTIC SURGERY CLINIC CONSULT NOTE AUTHOR: KI PICHARDO MD CONSULTING ATTENDING: Kelsi Lopez MD. REASON FOR CONSULT: breast reconstruction s/p right mastectomy REQUESTING PROVIDER: Dr. Heart HISTORY OF PRESENT ILLNESS: Dr. Lopez was consulted to evaluate this patient for breast reconstruction after mastectom y. Adriana Flynn is a 66 y.o. female with a a history of breast cancer who had a right tota l mastectomy and right axillary sentinel lymph node dissection in 03/2007. Post-operatively, she underwent adjuvant chemotherapy but did not have radiation secondary to Sjogrens syndro me. She present to out clinic today interested in options for right breast reconstruction wi th possible symmetry procedure on the left side. Current bra size: 36-38C Desired cup size: possible smaller than 38C but really interested in symmetric recon. Family history of breast disease: denies Last mammogram: 06/2011 PAST MEDICAL HISTORY: Past Medical History Diagnosis Date Sjogrens syndrome [...] cancer 02/2007 s/p chemo with taxotere/cytoxan Shingles PAST SURGICAL HISTORY: Past Surgical History Procedure Date Ectopic age [...] [facility] ablation 12/16/2004,09/21/2005 Dr. Fuentes, [facility] Mastectomy Biopsy / excision / dissection axillary node FAMILY HISTORY: Family History Problem Relation Diabetes Heart Disease Additional Family History Mother osteoporosis/hip fracture SOCIAL HISTORY: History Social History Marital Status: Spouse Name: N/A Number of Children: N/A Years of Education: N/A Occupational History retired 2000 Social History Main Topics Smoking status: Never Smoker Smokeless tobacco: Never Used Comment: nonsmoker/parents smoked Alcohol Use: No Drug Use: No Sexually Active: Not on file Other Topics Concern Not on file Social History Narrative No narrative on file REVIEW OF SYSTEMS: ROS was positive for: n/a. ROS pertinent negative response for: No constitutional symptoms of fevers, fatigue, chills, weight loss or sweats. ROS was negative of all other symptoms. MEDICATIONS: anastrozole (ARIMIDEX) 1 mg Oral Tablet, Take 1 Tab by mouth once daily. atenolol 50 mg Oral Tablet, Take 25 mg by mouth two times daily. 1/2 tablet twice daily budesonide (PULMICORT FLEXHALER) 180 mcg/actuation Inhalation Aerosol Powdr Breath Activate d, Inhale 2 Puffs once daily. calcium citrate-vitamin D (CITRACAL + D) 315-200 mg-unit Oral Tablet, 2 tabs in evening an d liquid calcium citrate in AM Diclofenac Sodium (VOLTAREN) 1 % Topical Gel, Apply to affected area three times daily. DOFETILIDE 500 mcg Oral Capsule, Take 1 Cap by mouth two times daily. ezetimibe (ZETIA) 10 mg Oral Tablet, Take 10 mg by mouth once daily. fluticasone (FLONASE) 50 mcg/actuation Nasal [place], Suspension, Instill 1 [place] into each n ostril two times daily. Glucosamine 1,000 mg Oral Tablet, one daily Methylcellulose, Laxative, (CITRUCEL) Oral Powder, Take by mouth. MULTIVITAMIN OR, one daily potassium chloride SR 20 mEq Oral Tab Sust.Rel. Particle/Crystal, Take 1 Tab by mouth once daily. Please dispense as K-dur- other preparations do not get absorbed properly rabeprazole (ACIPHEX) 20 mg Oral Tablet, Delayed Release (E.C.), Take 20 mg by mouth once d aily. tiotropium (SPIRIVA WITH HANDIHALER) 18 mcg Inhalation Capsule, w/Inhalation Device, Inhale 18 mcg once daily. tramadol (ULTRAM) 50 mg Oral Tablet, Take 1 Tab by mouth every six hours as needed for mode rate pain. Vitamin A-Vitamin C-Vit E-Min (ANTIOXIDANT FORMULA) Oral Capsule, take 1 capsule by oral ro [place] once daily with food VITAMIN D ORAL, 2000 IU daily ALLERGIES: Allergies Allergen Reactions Sulfa(Sulfonamide Antibiotics) Swelling-Facial Albuterol Tachycardia Celebrex (Celecoxib) Diarrhea and Cough Ciprofloxacin Hives and Rash Clarification Needed Patient had steroid injection in shoulder. She and her provider are still trying to find out which part of injection she reacted to. Patient states she was "loopy" for a few days af ter injection Crestor (Rosuvastatin Calcium) muscle/Jt Pain Flecainide Acetate Rash Intestinal discomfort Kapidex (Dexlansoprazole) Lactose Propafenone unknown Triamterene-Hydrochlorothiazid BREAST LUMPS Tape Adherent Rash CHEST: right transverse right mastectomy scar with right axillary lymph node dissection sca r, left breast scar at 4 o'clock, 5 cm from NAC. LEFT BREAST: sternal notch to nipple 24cm, breast width 15cm, midline to nipple 10 cm, ptos is 4cm ABDOMEN: upper abdominal jacobo incision, lower abdominal midline incision (infra-umbilic al), RLQ transverse scar ASSESSMENT AND RECOMMENDATIONS: Adriana Flynn is a 66 y.o. female with a history of breast cancer status post right total m astectomy in 2006 who is interested in right breast reconstruction with possible left breast symmetry procedure. We discusses with her all possible options, and she would like to pursu e the first stage of reconstruction in July of 2012. Therefore, we will submit insurance pre-authorization paperwork for implantation of tissue logistics specialist. She is schedule to have a r outine annual screening mammogram on July and she will schedule a pre-op appointment with our clinic later on the same day. KI PICHARDO MD P:[id number] 04/02/2012 2:21 PM urphy, Kelsi Peguero MD - 04/01/2012 12:58 PM PDTPlastics Attending Note I saw and examined the patient and agree with the assessment and plan as documented in the resident's note. Pt is s/p R mastectomy (550 g) ALND in 2006 and adjuvant therapy. She is no w interested in implant reconstruction. She is not interested in autologous reconstruction. She wants to be free of a prosthesis (300 mL shaped by water displacement) I explained a mul ti-stage procedure with TE placement first, implant exchange and symmetry procedure, and nip ple reconstruction as a separate operation. I will submit a surgery request to get authoriza tion for surgery in July after I see a report of her mammogram. I spent over 30 minutes with the patient today, and over 50% of it was counseling. 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
--- OUTSIDE RECORDS SUMMARY | ~2020-05-04 | XMS | Encounter Summary ---
Demographics + + + | Address | [address] | | | [place] [address] | + + + | Home Phone | | + + + | Preferred Language | Unknown | + + + | Marital Status | | + + + | Confucianist Affiliation | CHR | + + + [...] + | Gene Gee | ECON | [address] | | | | | [place], | | | | | [place] [address] | | + + + + + Care Team Providers + +------+ + | Care Instructional Developer Name | Role | Phone | + +------+ + | Antony Ribera MD | PCP | | + +------+ + Reason for Visit + +--------+ + | Reason | Onset | Comments | | | Date | | + +--------+ + | Medication Question | 07/18/ | | | | 2016 | | + +--------+ + | Returning Phone Call | 07/18/ | | | | 2016 | | + +--------+ + Encounter Details +--------+ + + + + | Date | Type | Department | Care Team | Description | +--------+ + + + + | 07/18/ | Telephone | Cardiology | Elijah Whalen, | Medication Question; | | 2016 | | Arrhythmia at [facility] | MD Yayo Harden | Returning Phone | | | | [address] | [address] | Call | | | | [facility] | [place], [place] | | | | | and [place], | [address] | | | | | [place] [address] [facility] | [phone] | | | | | [place], [place] | | | | | | [address] | | | | | | [phone] | | | +--------+ + + + [...] encounter Miscellaneous Notes Telephone Encounter - Virginia Flanagan RN - 07/19/2016 1:20 PM PSTCarol returned call. She has her PFT scheduled for Sunday07/24/2016. She is wondering if after the PFT lab test IF she is feeling arrhythmia's can she get an EKG done while she is at [facility]. We discussed that if she does have feelings of arrhythmias when she is at [facility] on Sunday, t o come to the 9th floor of [facility] and get an EKG at that time. Patient appreciative of phone call. Electronically signed by Virginia Flanagan RN at 07/19 1:22 PM PSTTelephone Encounter - Virginia Flanagan RN - 07/19/2016 12:49 PM PSTRetu rned call to patient - lv to refer to [phone] which is the number of the PFT lab for a ny questions regarding these tests. eleMeagan Adkins - 07/19/2016 12:10 PM PSTFormatting of this note might be different from th e original. Reason for Call: Medication Question Returning Phone Call Patient: Adriana Flynn Patient Contact Numbers: Home Phone Work Phone Message: Description of reason for call: Patient is returning a call she received yesterday. You can call her anytime. Last Visit: 04/19/16 at 1:30 pm Next Visit: No future appointments scheduled in Cardiology. elephone Encounter - Virginia Voss RN - 07/19/2016 10:12 AM PSTCalled pulmonary function lab to inquire about pat ient's restrictions r/t to PFT tests scheduled on 07/24/2016. Patient is to hold all inhalers and all caffeine that day. Called patient to update. LV. eleMarjan Her - 07/18/2016 4:17 PM PSTPatient calls with the following question: Pt w ants to know if OK to take albuterol before tests next week Okay to send Mychart Response? no The best phone number to reach the patient today is [phone]. Best time to reach the p atient is anytime. ~~~~ ROUTE TO CAR TRIAGE POOL ~~~~~ documented in this encount er Plan of Treatment Not on filedocumented as of this encounter Visit Diagnoses Not on filedocumented in this encounter"
--- OUTSIDE RECORDS SUMMARY | ~2020-05-04 | XMS | Encounter Summary ---
Demographics + + + | Address | [address] | | | [place] [address] | + + + | Home Phone [...] + | Gene Gee | ECON | [address] | | | | | [place], | | | | | [place] [address] | | + + + + + Care Team Providers + +------+ + | Care Naval Special Warfare Medic Name | Role | Phone | + +------+ + | Antony Ribera MD | PCP | | + +------+ + Reason for Visit Diagnostic Testing (Urgent) +--------+--------+ + + + + | Status | Reason | Specialty | Diagnoses / | Referred By | Referred To | | | | | Procedures | Contact | Contact | +--------+--------+ + + + + | Closed | | Radiology | Diagnoses | Marcus, | Rad Ct Scan | | | | | Breast | Stevan Razo, | [facility] [address] | | | | | cancer (HCC) | [address] | Dereck Cruz | | | | | Procedures | [address] | Deisi Nqavi [facility] | | | | | CT CHEST | [place], [place] | [facility], | | | | | WO CONTRAST | [address] | 10th Floor | | | | | | Phone: | [place], [place] | | | | | | [phone] | [address] | | | | | | Fax: | Phone: | | | | | | [phone] | [phone] | | | | | | | Fax: | | | | | | | [phone] | +--------+--------+ + + + + Encounter Details +--------+ + + + + | Date | Type | Department | Care Team | Description | +--------+ + + + + | 11/17/ | Hospital | Radiology/Imaging | | | | 2010 | Encounter | Lab at [facility] [address] | | | | | | [address] [facility] | | | | | [facility], | | | | | | [place] [address], [facility] | | | | | | Floor [place], [place] | | | | | | [address] | | | | | | [phone] | | | +--------+ + + + [...] of this encounter Miscellaneous Notes Scan - Ligia Faculty - 03/03/2011 7:04 PM PDTElectronically signed by Faculty Other at 7:04 PM PDTdocumented in this encounter Plan of Treatment Not on filedocumented as of this encounter Procedures + +--------+ + + + | Procedure Name | Priori | Date/Time | Associated Diagnosis | Comments | | | ty | | | | + +--------+ + + + | CT CHEST WO CONTRAST | Urgent | 11/17/2010 | Breast cancer | Results for this | | | | 2:45 PM | (HCC) | procedure are in the | | | | PDT | | results section. | + +--------+ + + + documented in this encounter Results CT CHEST WO CONTRAST (11/17/2010 2:45 PM PDT) + + + + + + | Component | Value | Ref Range | Performed | Pathologist | | | | | At | Signature | + + + + + + | CT CHEST WO | EXAM: CT chest without | | | | | CONTRAST | contrast. 11/17/2010. | | | | | | HISTORY: Evaluate lung | | | | | | nodules. Breast | | | | | | cancer.. COMPARISON: | | | | | | 05/03/2010, 12/28/08, | | | | | | 09/17/08. TECHNIQUE: | | | | | | Overlapping 5 mm axial | | | | | | CT images were obtained | | | | | | through thechest without | | | | | | contrast. 2-mm thick | | | | | | axial images at 10-mm | | | | | | intervalswere also | | | | | | generated. Coronal | | | | | | reformatted images | | | | | | reviewed. FINDINGS: | | | | | | There is no pleural or | | | | | | pericardial effusion. | | | | | | The heart is normal | | | | | | insize. Surgical | | | | | | changes from prior right | | | | | | mastectomy and | | | | | | axillarylymph node | | | | | | dissection are again | | | | | | noted. There is no | | | | | | thoracicadenopathy by | | | | | | size criteria. Multiple | | | | | | scattered pulmonary | | | | | | nodules are present, as | | | | | | listed:Small cluster of | | | | | | 2-mm nodules in the left | | | | | | upper lobe, image 36, | | | | | | arenew.Punctate left | | | | | | lower lobe, image 65 is | | | | | | new.Two 2 mm nodules in | | | | | | the posterior basal left | | | | | | lower lobe, image | | | | | | 99,are new.2-mm nodule | | | | | | in the left lower lobe | | | | | | lateral basal segment, | | | | | | image 96,is unchanged | | | | | | from 05/03/10.3-mm | | | | | | nodule in the minor | | | | | | fissure, image 55, is | | | | | | unchanged, dating backto | | | | | | 09/17/08.2-mm nodule | | | | | | along the minor fissure, | | | | | | image 54 is also | | | | | | unchanged from12/28/08.2 | | | | | | mm right lower lobe | | | | | | medial basal segment, | | | | | | image 87 is new.3 mm | | | | | | right lower lobe medial | | | | | | basal segment, image 89 | | | | | | is new. The peripheral | | | | | | right middle lobe | | | | | | pulmonary nodule seen on | | | | | | image 80 onthe | | | | | | 05/03/2010 study is no | | | | | | longer present. Mild | | | | | | bibasilar scarring is | | | | | | unchanged. Multiple | | | | | | hepatic cysts are | | | | | | unchanged. The | | | | | | gallbladder is | | | | | | surgicallyabsent. The | | | | | | remainder of the | | | | | | unenhanced visualized | | | | | | upper abdomen | | | | | | isotherwise | | | | | | unremarkable. There is | | | | | | no suspicious osseous | | | | | | abnormality. IMPRESSION: | | | | | | Multiple scattered new | | | | | | indeterminate 2-3 mm | | | | | | pulmonary nodules, | | | | | | asabove. One nodule from | | | | | | the prior study has | | | | | | resolved. | | | | | | Multiplenodules are | | | | | | stable. These are all | | | | | | likely | | | | | | post-inflammatory, | | | | | | howevercontinued | | | | | | follow-up is suggested | | | | | | to ensure stability or | | | | | | resolution ofthe newer | | | | | | nodules. Attending | | | | | | Radiologists: Stuart | | | | | | Declan ColindresAuthor: | | | | | | Ki Cruz M.D. | | | | | | I have personally viewed | | | | | | this procedure/exam, | | | | | | reviewed this report,and | | | | | | made changes to it | | | | | | where appropriate. | | | | | | Final/Electronically | | | | | | signed / Einav | | | | | | Bernadine 11/18/2010 8:30 | | | | | | AM | | | | + + + + + + + + | Specimen | + + | | + + + +---------+ + + | Performing | Address | City/State/Zipcode | Phone Number | | Organization | | | | + +---------+ + + | [facility] | | | | | RADIOLOGY | | | | + +---------+ + + documented in this encounter Visit Diagnoses + + | Diagnosis | + + | Breast cancer (HCC) Malignant neoplasm of breast (female), unspecified site | + + documented in this encounter"
--- OUTSIDE RECORDS SUMMARY | ~2020-05-04 | XMS | Encounter Summary ---
Demographics + + + | Address | [address] | | | [place] [address] | + + + | Home Phone [...] + + + | Author | [facility] | + + + | Organization | [facility] | + + + | Address | Unknown | + + + | Phone | Unavailable | + + + Support + + + + + | Name | Relationship | Address | Phone | + + + + + | Gene Gee | ECON | [address] | | | | | [place], | | | | | [place] [address] | | + + + + + Care Team Providers + +------+ + | Care Auto Collision Repair Instructor Name | Role | Phone | + +------+ + | Antony Ribera MD | PCP | | + +------+ + Reason for Visit + + + | Reason | Comments | + + + | Bone Density Scan | | + + + Office Visit [...] Carlos Manuel, | | | Services | Diabetes & | Thyroid | Stevan Razo, | MD Tapan | | | Required | Metabolism | nodule | MD [address] | [address] | | | | | Disorder of | [address] | Anthony [place]comb | | | | | bone and | [place], [place] | Rd [place], | | | | | cartilage, | [address] | [place] | | | | | unspecified | Phone: | [address] | | | | | | [phone] | Phone: | | | | | | Fax: | [phone] | | | | | | [phone] | Fax: | | | | | | | [phone] | +--------+ + + + + + Encounter Details +--------+---------+ + + + | Date | Type | Department | Care Team | Description | +--------+---------+ + + + | 06/02/ | Office | Bone Density at | | Disorder of bone | | 2014 | Visit | [facility] [address] | | (Primary Dx) | | | | [facility] | | | | | | and Healing, | | | | | | [address] | | | | | | [place], [place] | | | | | | [address] | | | | | | [phone] | | | +--------+---------+ + + + [...] + documented as of this encounter Progress Yuki Reynolds - 06/02/2015 12:45 PM PSTBone density scans performed. Upon completion of the Interpretation Report, the report and DXA scan images will be scanne d into [employer] and will be located in the patient's Chart Review, under the Media tab. documented in this encoun ter Plan of Treatment Not on filedocumented as of this encounter Visit Diagnoses + + | Diagnosis | + + | Disorder of bone - Primary Disorder of bone and cartilage, unspecified | + + documented in this encounter"
--- OUTSIDE RECORDS SUMMARY | ~2020-05-04 | XMS | Encounter Summary ---
Demographics + + + | Address | [address] | | | [place] [address] | + + + | Home Phone | | + + + | Preferred Language | Unknown | + + + | Marital Status | | + + + | Caodaism Affiliation | CHR | + + + | Race | White | + + + | Ethnic Group | Not or | + + + Author + + + | Author | [facility] | + + + | Organization | [facility] | + + + | Address | Unknown | + + + | Phone | Unavailable | + + + Support + + + + + | Name | Relationship | Address | Phone | + + + + + | Gene Gee | ECON | [address] | | | | | [place], | | | | | [place] [address] | | + + + + + Care Team Providers + +------+ + | Care Production Welder Name | Role | Phone | + +------+ + | Antony Ribera MD | PCP | | + +------+ + Reason for Visit + + + | Reason | Comments | + + + | Lab Results | | + + + Encounter Details +--------+ + + + + | Date | Type | Department | Care Team | Description | +--------+ + + + + | 12/31/ | Telephone | Endocrinology, | Tapan Horowitz MD | Lab Results | | 2008 | | Diabetes and | [address] | | | | | Clinical Nutrition | [place], | | | | | [address] | [place] [address] | | | | | Mario Mailcode: OPC5 | [phone] | | | | | Outpatient Clinic | | | | | | [place], | | | | | | [place] [address] | | | | | | [phone] | | | +--------+ + + + [...] this encounter Miscellaneous Notes Telephone Encounter - Tapan Horowitz MD - 01/01/2009 11:01 AM PDTPt called back. Wishes to g o ahead with reclast she has reviewed side effect profile. boniva stopped.Electronically sig elenita by Tapan Horowitz MD at 01/01/2009 11:01 AM PDTTelephone Encounter - Tapan Horowitz MD - 11:07 AM PDTLeft vm for pt inquiring if she wants to go ahead with reclastElectroni will signed by Tapan Horowitz MD at 12/31/2008 11:07 AM PDTdocumented in this encounter Plan of Treatment Not on filedocumented as of this encounter Visit Diagnoses Not on filedocumented in this encounter"
--- OUTSIDE RECORDS SUMMARY | ~2020-05-04 | XMS | Encounter Summary ---
Demographics + + + | Address | [address] | | | [place] [address] | + + + | Home Phone | | + + + | Preferred Language | Unknown | + + + | Marital Status | | + + + | Confucianist Affiliation | CHR | + + + | Race | White | + + + | Ethnic Group | Not or | + + + Author + + + | Author | [facility] | + + + | Organization | [facility] | + + + | Address | Unknown | + + + | Phone | Unavailable | + + + Support + + + + + | Name | Relationship | Address | Phone | + + + + + | Gene Gee | ECON | [address] | | | | | [place], | | | | | [place] [address] | | + + + + + Care Team Providers + +------+ + | Care Buckle Wire Inserter Name | Role | Phone | + +------+ + | Antony Ribera MD | PCP | | + +------+ + Encounter Details +--------+ + + + + | Date | Type | Department | Care Team | Description | +--------+ + + + + | 05/23/ | Office | [facility] | Nurse3, Hem [address] | | | 2006 | Visit-ECX | Clinics at S | [address] | | | | | [place] [address] | [place] [address] | | | | | [facility] | Chr13, Hem [address] | | | | | Health and Healing, | [address] [place], | | | | | [address] | [place] [address] | | | | | [place], [place] | | | | | | [address] | | | | | | [phone] | | | +--------+ + + + [...] + + + | Blood Pressure | 144/68 | 05/23/2007 9:14 AM | | | | | PST | | + + + + + | Pulse | 85 | 05/23/2007 9:14 AM | | | | | PST | | + + + + + | Temperature | 36.4 C (97.6 F) | 05/23/2007 9:14 AM | | | | | PST [...] + + + + | Weight | 65.6 kg (144 lb 10 | 05/23/2007 9:14 AM | | | | oz) | PST | | + + + + + | Height | - | - | | + + + + + | Body Mass Index | 23.7 | 05/02/2007 2:06 PM | | | | | PDT | | + + + + + documented in this encounter Plan of Treatment Not on filedocumented as of this encounter Visit Diagnoses Not on filedocumented in this encounter"
--- OUTSIDE RECORDS SUMMARY | ~2020-05-04 | XMS | Encounter Summary ---
Demographics + + + | Address | [address] | | | [place] [address] | + + + | Home Phone | | + + + | Preferred Language | Unknown | + + + | Marital Status | | + + + | Baptism Affiliation | CHR | + + + [...] + | Gene Gee | ECON | [address] | | | | | [place], | | | | | [place] [address] | | + + + + + Care Team Providers + +------+ + | Care Shorer Name | Role | Phone | + +------+ + | Antony Ribera MD | PCP | | + +------+ + Reason for Visit + +--------+ + | Reason | Onset | Comments | | | Date | | + +--------+ + | Refill Request | 08/31/ | | | | 2009 | | + +--------+ + Encounter Details +--------+--------+ + + + | Date | Type | Department | Care Team | Description | +--------+--------+ + + + | 08/31/ | Refill | Hematology/Medical | Stevan Velazquez, | Refill Request | | 2009 | | Oncology at [facility] | MD [address] | | | | | [address] | [facility] [place] | | | | | Mailcode: [facility] | [address] | | | | | [facility] | [phone] | | | | | and Healing, | | | | | | [facility] | | | | | | Floor [facility] [place] | | | | | | [address] | | | | | | [phone] | | | +--------+--------+ + + + [...] this encounter Miscellaneous Notes Telephone Encounter - Tulio Latham, Katty Perez - 08/31/2009 2:20 PM PSTRefill request receiv ed for arimidex. Will route pended order to Dr. Velazquez for approval. documented in this encounter Plan of Treatment Not on filedocumented as of this encounter Visit Diagnoses Not on filedocumented in this encounter"
--- OUTSIDE RECORDS SUMMARY | ~2020-05-04 | XMS | Encounter Summary ---
Demographics + + + | Address | [address] | | | [place] [address] | + + + | Home Phone [...] + | Gene Gee | ECON | [address] | | | | | [place], | | | | | [place] [address] | | + + + + + Care Team Providers + +------+ + | Care Stratigrapher Name | Role | Phone | + +------+ + | Antony Ribera MD | PCP | | + +------+ + Encounter Details +--------+ + + + + | Date | Type | Department | Care Team | Description | +--------+ + + + + | 05/03/ | Hospital | Diagnostics at [facility] | Tech, Pfl Ped | | | 2009 | Encounter | [address] | [address] | | | | | Donna | [facility], | | | | | [facility], | [place] [address] | | | | | 8th floor | | | | | | [place], [place] | | | | | | [address] | | | | | | [phone] | | | +--------+ + + + [...] Miscellaneous Notes Scan - Gisele Strong - 09/20/2010 2:15 PM PST documented in this encou nter Plan of Treatment Not on filedocumented as of this encounter Procedures + +--------+ + + + | Procedure Name | Priori | Date/Time | Associated Diagnosis | Comments | | | ty | | | | + +--------+ + + + | PULMONARY FUNCTION | Routin | 05/03/2010 | | Results for this | | | e | 1:17 PM | | procedure are in the | | | | PDT | | results section. | + +--------+ + + + documented in this encounter Results RESP CARE PULMONARY FUNCTION (05/03/2010 1:17 PM PDT) + + + + +-------- ------+ | Component | Value | Ref Range | Performed | Patholo gist | | | | | At | Signatu re | + + + + +-------- ------+ | PULMONARY | Spirometry was | | [facility] | | | FUNCTION | performed:Spirometry | | RESPIRATORY | | | | results were the | | THERAPY | | | | following:FVC=3.37FVC% | | | | | | aeictyqne=755BFV3=9.14FE | | | | | | V1% | | | | | | predicted=84FEV1/FVC=64F | | | | | | EF 25-75=0.86FEF 25-75% | | | | | | predicted=40PEF=6.86PEF% | | | | | | xmocogjiw=848 | | | | | | Electronically Signed | | | | | | by: Jorden Orozco RCP | | | | | | | | | | | | | | | | | | | | | | | | | | | | | |Electronically Signed by: Jorden Orozco RCP | | | | + + + + +-------- ------+ + + | Specimen | + + | | + + + + + + + | Performing | Address | City/State/Zipcode | Phone Number | | Organization | | | | + + + + + | [facility] | [address] | [place], [place] | | | THERAPY | [facility] | [address] | | + + + + + documented in this encounter Visit Diagnoses Not on filedocumented in this encounter"
--- OUTSIDE RECORDS SUMMARY | ~2020-05-04 | XMS | Encounter Summary ---
Demographics + + + | Address | [address] | | | [place] [address] | + + + | Home Phone [...] + | Gene Gee | ECON | [address] | | | | | [place], | | | | | [place] [address] | | + + + + + Care Team Providers + +------+ + | Care Compounding Assistant Name | Role | Phone | + +------+ + | Antony Ribera MD | PCP | | + +------+ + Reason for Visit Office Visit - E/M Services (Routine) +--------+--------+ + + + + | Status | Reason | Specialty | Diagnoses / | Referred By | Referred To | | | | | Procedures | Contact | Contact | +--------+--------+ + + + + | Closed | | Pulmonary | | Bacilio | Pul Faculty | | | | Disease | | Antony | [facility]rd [facility] | | | | | | MD Saman | [address] | | | | | | [address] | [address] | | | | | | INTERNAL | Physician's | | | | | | MEDICINE | [address], | | | | | | [address] | 3rd Floor | | | | | | [address] | [place], [place] | | | | | | [address] | [address] | | | | | | [place], | Phone: | | | | | | [place] [address] | [phone] | | | | | | Phone: | Fax: | | | | | | [phone] | [phone] | | | | | | Fax: | | | | | | | [phone] | | +--------+--------+ + + + + Encounter Details +--------+ + + + + | Date | Type | Department | Care Team | Description | +--------+ + + + + | 10/24/ | Hospital | Pulmonary Function | Tech, Pfl Adult | | | 2018 | Encounter | Lab at [facility] [address] | [address] | | | | | [address] | [address] [place], | | | | | [place], | [place] [address] | | | | | 3rd floor [place], | | | | | | [place] [address] | | | | | | [phone] | | | +--------+ + + + [...] + + + +---------+ + + | lactobac cmb | Take by mouth once | | 0 | | | | #3-wtc-jlohkztrlc | daily. | | | | | | 300-250 million | | | | | | | cell-mg oral capsule | | | | | | + + + +---------+ + + | LORAZEPAM 1 mg | Take 0.5 tablets by | | 0 | 06/10/20 | | | Oral tablet | mouth once daily at | | | 12 | | | | bedtime as needed. | | | | | + + + +---------+ + + | ofloxacin 0.3 % | Instill 1 drop into | | 0 | 12/23/19 | | | ophthalmic drops | both eyes as needed. | | | 16 | | | | | | | | | + + + +---------+ + + | polyethylene | Mix 17 g in liquid | | 0 | | | | glycol (MIRALAX) 17 | and drink once | | | | | | gram/dose oral | daily. | | | | | | powder | | | | | | + [...] | + +--------+ + + + | SPIROMETRY BEFORE / | Routin | 10/24/2017 | Asthma, | Results for this | | AFTER BRONCHODIL, | e | 10:35 AM | unspecified asthma | procedure are in the | | PULM FUNCTION LAB | | PDT | severity, | results section. | | | | | unspecified whether | | | | | | complicated, | | | | | | unspecified whether | | | | | | persistent | | + +--------+ + + + documented in this encounter Results SPIROMETRY BEFORE / AFTER BRONCHODIL, PULM FUNCTION LAB (10/24/2017 10:35 AM PDT) + + + + + + | Component | Value | Ref Range | Performed | Pathologist | | | | | At | Signature | + + + + + + | PULMONARY | Site: [facility] | [facility] | | | INTERPRETAT | [facility] | | SPECIAL | | | ION | [facility] | | DIAGNOSTICS | | | | Rd,[place], [place], | | - | | | | [address]EX: [id number] | | PULMONARY | | | | Name: LAUREN BAXTER | | FUNCTION | | | | JVisit Date: 10/24/2017 | | | | | | Second ID: | | | | | | [id number]: | | | | | | Marielos Campos: 72 | | | | | | : 1945 Sex: | | | | | | Female Race: | | | | | | CaucasianHeight: 165.00 | | | | | | Cms Weight: 69.20 | | | | | | Kgs BSA: | | | | | | 1.76Diagnosis: | | | | | | J45.909Dyspnea: On hills | | | | | | and stairs Cough: No | | | | | | Cough Wheeze: No | | | | | | WheezeTbco Prod: Never | | | | | | SmokedPost Test | | | | | | Comments: Patient height | | | | | | and weight reviewed. | | | | | | Good patient effort | | | | | | &cooperation. The | | | | | | results of this test | | | | | | meet the ATS standards | | | | | | for acceptabilityand | | | | | | repeatability.No | | | | | | pre/post Albuterol | | | | | | testing done at this | | | | | | time. Pt. is sensitive | | | | | | to Albuterolrefused due | | | | | | to recent A-fib. | | | | | | | | | | | | | | | | | | Pre-Bronch | | | | | | Post-Bronch | | | | | | | | | | | | Pred | | | | | | Actual %Pred Actual | | | | | | %ChngSPIROMETRYFVC (L) | | | | | | | | | | | | 2.97 | | | | | | 2.37 79FEV1 (L) | | | | | | | | | | | | 2.23 1.76 | | | | | | 78FEV1/FVC (%) | | | | | | | | | | | | 75 74 | | | | | | 99FEF 25% (L/sec) | | | | | | 4.74 | | | | | | 5.60 118FEF 50% | | | | | | (L/sec) | | | | | | 3.22 1.74 | | | | | | 54FEF 75% (L/sec) | | | | | | | | | | | | 0.89 0.46 | | | | | | 51FEF 25-75% (L/sec) | | | | | | 1.76 | | | | | | 1.26 71FEF Max | | | | | | (L/sec) | | | | | | 5.47 6.43 | | | | | | 117FIVC (L) | | | | | | | | | | | | 2.19FIF | | | | | | 50% (L/sec) | | | | | | 4.23 | | | | | | 4.83 114FIF Max | | | | | | (L/sec) | | | | | | | | | | | | 4.83LUNG VOLUMESSVC (L) | | | | | | | | | | | | 2.88 | | | | | | 2.45 84IC (L) | | | | | | | | | | | | 2.21 2.25 | | | | | | 101ERV (L) | | | | | | | | | | | | 0.67 0.19 | | | | | | 29FRC (pl) (L) | | | | | | | | | | | | 2.99 2.39 79RV | | | | | | (Pleth) (L) | | | | | | 2.32 | | | | | | 2.20 94TLC (Pleth) | | | | | | (L) | | | | | | 5.20 4.64 | | | | | | 89RV/TLC (Pleth) (%) | | | | | | | | | | | | 45 47 | | | | | | 105DIFFUSIONDLCOunc | | | | | | (ml/min/mmHg) | | | | | | 20.45 17.56 | | | | | | 85DLCOadj | | | | | | (ml/min/mmHg) | | | | | | 20.45 17.84 | | | | | | 87DL/VA | | | | | | (ml/min/mmHg/L) | | | | | | 3.93 4.26 | | | | | | 108VA (L) | | | | | | | | | | | | 5.20 4.19 | | | | | | 80AIRWAYS | | | | | | RESISTANCEBLOOD GASESHgb | | | | | | (gm/dL) | | | | | | | | | | | | 12.9 Interpretation: | | | | | | INTERPRETATION:SPIROMETR | | | | | | Y:Spirometry suggests | | | | | | mild restrictive | | | | | | impairment indicated by | | | | | | a reduced FVC bharathi | | | | | | normal FEV1/FVC. Since | | | | | | 09/2016, values have not | | | | | | changed | | | | | | signfiicantly.LUNG | | | | | | VOLUMES:Lung volumes are | | | | | | within normal | | | | | | limits.DIFFUSING | | | | | | CAPACITY:The diffusing | | | | | | capacity is within | | | | | | normal limits. Overall, | | | | | | pattern is consistent | | | | | | with normal pulmonary | | | | | | function. BHAKTI This | | | | | | interpretation has been | | | | | | electronically signed: | | | | | | Xu Mayberry | | | | | | 10/30/201703:14:20 PM | | | | + + + + + + | FVC PRE | 2.37 | 2.97 L | [facility] | | | | | | SPECIAL | | | | | | DIAGNOSTICS | | | | | | - | | | | | | PULMONARY | | | | | | FUNCTION | | + + + + + + | FVC PRE | 79 | % | [facility] | | | (%REF) | | | SPECIAL | | | | | | DIAGNOSTICS | | | | | | - | | | | | | PULMONARY | | | | | | FUNCTION | | + + + + + + | FEV1 PRE | 1.76 | 2.23 L | [facility] | | | | | | SPECIAL | | | | | | DIAGNOSTICS | | | | | | - | | | | | | PULMONARY | | | | | | FUNCTION | | + + + + + + | FEV1 PRE | 78 | % | [facility] | | | (%REF) | | | SPECIAL | | | | | | DIAGNOSTICS | | | | | | - | | | | | | PULMONARY | | | | | | FUNCTION | | + + + + + + | FEV1/FVC | 74 | 75 % | [facility] | | | PRE | | | SPECIAL | | | | | | DIAGNOSTICS | | | | | | - | | | | | | PULMONARY | | | | | | FUNCTION | | + + + + + + | FEV1/FVC | 99 | % | [facility] | | | PRE (%REF) | | | SPECIAL | | | | | | DIAGNOSTICS | | | | | | - | | | | | | PULMONARY | | | | | | FUNCTION | | + + + + + + | PEF PRE | 6.43 | 5.47 L/sec | [facility] | | | | | | SPECIAL | | | | | | DIAGNOSTICS | | | | | | - | | | | | | PULMONARY | | | | | | FUNCTION | | + + + + + + | PEF PRE | 117 | % | [facility] | | | (%REF) | | | SPECIAL | | | | | | DIAGNOSTICS | | | | | | - | | | | | | PULMONARY | | | | | | FUNCTION | | + + + + + + | WKD45-16% | 1.26 | 1.76 L/sec | [facility] | | | PRE | | | SPECIAL | | | | | | DIAGNOSTICS | | | | | | - | | | | | | PULMONARY | | | | | | FUNCTION | | + + + + + + | IZO07-54% | 71 | % | [facility] | | | PRE (%REF) | | | SPECIAL | | | | | | DIAGNOSTICS | | | | | | - | | | | | | PULMONARY | | | | | | FUNCTION | | + + + + + + | FIF50% PRE | 4.83 | 4.23 L/sec | [facility] | | | | | | SPECIAL | | | | | | DIAGNOSTICS | | | | | | - | | | | | | PULMONARY | | | | | | FUNCTION | | + + + + + + | FIF50% PRE | 114 | % | [facility] | | | (%REF) | | | SPECIAL | | | | | | DIAGNOSTICS | | | | | | - | | | | | | PULMONARY | | | | | | FUNCTION | | + + + + + + | VC PRE | 2.45 | 2.88 L | [facility] | | | | | | SPECIAL | | | | | | DIAGNOSTICS | | | | | | - | | | | | | PULMONARY | | | | | | FUNCTION | | + + + + + + | VC PRE | 84 | % | [facility] | | | (%REF) | | | SPECIAL | | | | | | DIAGNOSTICS | | | | | | - | | | | | | PULMONARY | | | | | | FUNCTION | | + + + + + + | IC PRE | 2.25 | 2.21 L | [facility] | | | | | | SPECIAL | | | | | | DIAGNOSTICS | | | | | | - | | | | | | PULMONARY | | | | | | FUNCTION | | + + + + + + | IC PRE | 101 | % | [facility] | | | (%REF) | | | SPECIAL | | | | | | DIAGNOSTICS | | | | | | - | | | | | | PULMONARY | | | | | | FUNCTION | | + + + + + + | ERV PRE | 0.19 | 0.67 L | [facility] | | | | | | SPECIAL | | | | | | DIAGNOSTICS | | | | | | - | | | | | | PULMONARY | | | | | | FUNCTION | | + + + + + + | ERV PRE | 29 | % | [facility] | | | (%REF) | | | SPECIAL | | | | | | DIAGNOSTICS | | | | | | - | | | | | | PULMONARY | | | | | | FUNCTION | | + + + + + + | FRC PL PRE | 2.39 | 2.99 L | [facility] | | | | | | SPECIAL | | | | | | DIAGNOSTICS | | | | | | - | | | | | | PULMONARY | | | | | | FUNCTION | | + + + + + + | FRC PL PRE | 79 | % | [facility] | | | (%REF) | | | SPECIAL | | | | | | DIAGNOSTICS | | | | | | - | | | | | | PULMONARY | | | | | | FUNCTION | | + + + + + + | RV PRE | 2.20 | 2.32 L | [facility] | | | | | | SPECIAL | | | | | | DIAGNOSTICS | | | | | | - | | | | | | PULMONARY | | | | | | FUNCTION | | + + + + + + | RV PRE | 94 | % | [facility] | | | (%REF) | | | SPECIAL | | | | | | DIAGNOSTICS | | | | | | - | | | | | | PULMONARY | | | | | | FUNCTION | | + + + + + + | TLC PRE | 4.64 | 5.20 L | [facility] | | | | | | SPECIAL | | | | | | DIAGNOSTICS | | | | | | - | | | | | | PULMONARY | | | | | | FUNCTION | | + + + + + + | TLC PRE | 89 | % | [facility] | | | (%REF) | | | SPECIAL | | | | | | DIAGNOSTICS | | | | | | - | | | | | | PULMONARY | | | | | | FUNCTION | | + + + + + + | RV/TLC PRE | 47 | 45 % | [facility] | | | | | | SPECIAL | | | | | | DIAGNOSTICS | | | | | | - | | | | | | PULMONARY | | | | | | FUNCTION | | + + + + + + | DLCO PRE | 17.56 | 20.45 | [facility] | | | | | ml/min/mmHg | SPECIAL | | | | | | DIAGNOSTICS | | | | | | - | | | | | | PULMONARY | | | | | | FUNCTION | | + + + + + + | DLCO PRE | 85 | % | [facility] | | | (%REF) | | | SPECIAL | | | | | | DIAGNOSTICS | | | | | | - | | | | | | PULMONARY | | | | | | FUNCTION | | + + + + + + | DLCO ADJ | 17.84 | 20.45 | [facility] | | | PRE | | ml/min/mmHg | SPECIAL | | | | | | DIAGNOSTICS | | | | | | - | | | | | | PULMONARY | | | | | | FUNCTION | | + + + + + + | DLCO ADJ | 87 | % | [facility] | | | PRE (%REF) | | | SPECIAL | | | | | | DIAGNOSTICS | | | | | | - | | | | | | PULMONARY | | | | | | FUNCTION | | + + + + + + | DLCO/VA ADJ | 4.26 | ml/min/mmHg/L | [facility] | | | PRE | | | SPECIAL | | | | | | DIAGNOSTICS | | | | | | - | | | | | | PULMONARY | | | | | | FUNCTION | | + + + + + + | DLCO/VA ADJ | 108 | % | [facility] | | | PRE (%REF) | | | SPECIAL | | | | | | DIAGNOSTICS | | | | | | - | | | | | | PULMONARY | | | | | | FUNCTION | | + + + + + [...] + + + + + | [facility] | [address] | [place], [place] | | | DIAGNOSTICS - | [address] | [address] | | | PULMONARY FUNCTION | | | | + + + + + documented in this encounter Visit Diagnoses + + | Diagnosis | + + | Asthma, unspecified asthma severity, unspecified whether complicated, unspecified | | whether persistent | + + documented in this encounter"
--- OUTSIDE RECORDS SUMMARY | ~2020-05-04 | XMS | Encounter Summary ---
Demographics + + + | Address | [address] | | | [place] [address] | + + + | Home Phone | | + + + | Preferred Language | Unknown | + + + | Marital Status | | + + + | Latter Day Affiliation | CHR | + + + | Race | White | + + + | Ethnic Group | Not or | + + + Author + + + | Author | [facility] | + + + | Organization | [facility] | + + + | Address | Unknown | + + + | Phone | Unavailable | + + + Support + + + + + | Name | Relationship | Address | Phone | + + + + + | Gene Gee | ECON | [address] | | | | | [place], | | | | | [place] [address] | | + + + + + Care Team Providers + +------+ + | Care Ambulance Attendant Name | Role | Phone | + +------+ + | Alec Hill MD | PCP | | + +------+ + Reason for Visit + +--------+ + | Reason | Onset | Comments | | | Date | | + +--------+ + | Appointment | 02/28/ | | | | 2015 | | + +--------+ + Encounter Details +--------+ + + + + | Date | Type | Department | Care Team | Description | +--------+ + + + + | 02/28/ | Telephone | Cardiology | Elijah Whalen, | Appointment | | 2016 | | Arrhythmia at [facility] | [address] | | | | | [address] | [place] | | | | | [facility] | [place], [place] | | | | | and [place], | [address] | | | | | [address] | [phone] | | | | | Floor [place], [place] | | | | | | [address] | | | | | | [phone] | | | +--------+ + + + [...] this encounter Miscellaneous Notes Telephone Encounter - Meagan Tubbs - 02/29/2016 9:10 AM PDTFormatting of this note might b e different from the original. DealPing message sent to patient to schedule in cardiology. Patient Name Sex Adriana King ([id number]) Female 1945 Message Teodoro He last seen by dr. whalen 06/07/2015 due back for yearly follow up 05/2016, please sched ule. Thank you! -Agnieszka documented in this encounter Plan of Treatment Not on filedocumented as of this encounter Visit Diagnoses Not on filedocumented in this encounter"
--- OUTSIDE RECORDS SUMMARY | ~2020-05-04 | XMS | Encounter Summary ---
Demographics + + + | Address | [address] | | | [place] [address] | + + + | Home Phone [...] + | Gene Gee | ECON | [address] | | | | | [place], | | | | | [place] [address] | | + + + + + Care Team Providers + +------+ + | Care Chief Payroll Clerk Name | Role | Phone | + +------+ + | Antony Ribera MD | PCP | | + +------+ + Encounter Details +--------+ + + + + | Date | Type | Department | Care Team | Description | +--------+ + + + + | 05/24/ | Office | [facility] | Nurse2, Hem [address] | | | 2006 | Visit-ECX | Clinics at S | [address] | | | | | [address] | [place] [address] | | | | | [facility] | Chr9, [address] | | | | | Health and Healing, | [address] [place], | | | | | [address] | [place] [address] | | | | | [place], [place] | | | | | | [address] | | | | | | [phone] | | | +--------+ + + + [...] + + + | Blood Pressure | 122/61 | 05/24/2007 1:12 PM | | | | | PST | | + + + + + | Pulse | 69 | 05/24/2007 1:12 PM | | | | | PST | | + + + + + | Temperature | 37 C (98.6 F) | 05/24/2007 1:12 PM | | | | | PST [...] + + + + | Weight | 65.7 kg (144 lb 13.5 | 05/24/2007 1:12 PM | | | | oz) | PST | | + + + + + | Height | - | - | | + + + + + | Body Mass Index | 23.74 | 05/02/2007 2:06 PM | | | | | PDT | | + + + + + documented in this encounter Plan of Treatment Not on filedocumented as of this encounter Visit Diagnoses Not on filedocumented in this encounter"
--- OUTSIDE RECORDS SUMMARY | ~2020-05-04 | XMS | Encounter Summary ---
Demographics + + + | Address | [address] | | | [place] [address] | + + + | Home Phone | | + + + | Preferred Language | Unknown | + + + | Marital Status | | + + + | Anglican Affiliation | CHR | + + + | Race | White | + + + | Ethnic Group | Not or | + + + Author + + + | Author | [facility] | + + + | Organization | [facility] | + + + | Address | Unknown | + + + | Phone | Unavailable | + + + Support + + + + + | Name | Relationship | Address | Phone | + + + + + | Gene eGe | ECON | [address] | | | | | [place], | | | | | [place] [address] | | + + + + + Care Team Providers + +------+ + | Care Cooker Operator Name | Role | Phone | + +------+ + | Antony Ribera MD | PCP | | + +------+ + Reason for Visit +--------+--------+ + | Reason | Onset | Comments | | | Date | | +--------+--------+ + | Other | 08/22/ | Sensitive to Monitor sticky pads | | | 2016 | | +--------+--------+ + Encounter Details +--------+ + + + + | Date | Type | Department | Care Team | Description | +--------+ + + + + | 08/22/ | Telephone | Cardiology | Elijah Whalen, | Other (Sensitive to | | 2017 | | Arrhythmia at [facility] | MD [address] | Monitor sticky pads) | | | | [address] | [address] | | | | | [facility] | [place], [place] | | | | | and [place], | [address] | | | | | [address] | [phone] | | | | | [place], [place] | | | | | | [address] | | | | | | [phone] | | | +--------+ + + + [...] Telephone Encounter - Virginia Flanagan RN - 08/29/2016 10:03 AM PSTLisa, pathological technician at [facility] requesting a 48 hour monitor order. I reviewed with her that Dr. Whalen wanted a 30 day monitor. She understands. She will call patient today to place monitor. elephone Encounter - Virginia Flanagan RN - 08/25/2016 8:48 A M PSTHad a VM from Lindsay ([facility] pathological technician). The VM left indicates that the p atient would prefer to wear a 48 hour monitor - not a [address] Whalen wanted the 30 day event monitor. Returned call to [phone] to speak with Lindsay, she was not working today. I spoke with Rob. Peralta and I discussed patient should wear the [address] Whalen had ordered and if she does have a reaction to the electrodes, she can take it off and we will see what chance a we obtain. Fabian understands and will call patient to set up a time to place monitor. Electronically sig elenita by Virginia Flanagan RN at 08/25/2016 9:02 AM PSTTelephone Encounter - Monique Fuller RN - 08/24/2016 6:01 PM PSTCalled and left VM- if pt is having constant arrhythmias; then a 48hour holter monitor is likely to be acceptable to collect data. However, it is not clear that pt will tolerate the electrodes any better than the event mon itor electrodes. Will call back tomorrow and speak with a tech. elephone Encounter - Lalito Katty - 08/24/2016 4:56 PM PSTLisa from [facility] calling back. There are no alternate patches. She wants to ask if they can put on a 48 hour monitor as th e patient states she is having symptoms consistently every day throughout the day. She wants to ask if this is possible. If this is what Dr. Whalen wants, please send the order to [facility] (fax# ) Please call Lindsay at [phone], ext [phone] tonight. Tomorrow, ok to leave a message with an other RT or a voicemail. eleph one Encounter - Virginia Flanagan RN - 08/23/2016 2:17 PM PSTFormatting of this note migh t be different from the original. MD Virginia Nolen RN Caller: Unspecified (Yesterday, 4:09 PM) I agree. Sounds good. Elijah elephone Encounte r - Virginia Flanagan RN - 08/23/2016 11:36 AM PSTSpoke with Eden at the [facility] respiratory/EKG department regarding patient's allergy to tape and the need for a 30 day mo nitor. She states that the 30 day event monitor telemetry stickers are hypoallergenic. Another op tion if patient is super sensitive would be to do a 14 day monitor with surgical glue (which per the monitor company is even more hypoallergenic for extreme sensitivities). However, a 14 day monitor would record differently than a 30 day monitor. When I spoke to patient on 08/21/2016, patient stated that in the past she was not bothered by the tele stickers. Because Dr. Whalen specifically wanted at 30 day monitor, I told Eden that we should t ry the 30 day monitor and if patient does have sensitivities to the telemetry stickers, we w ill re-assess the plan. Eden will call the patient today and schedule a time to place t he monitor. Routed to Dr. Whalen as an FYI. Electronically signed by Virginia Flanagan RN at 017 11:47 AM PSTTelephone Encounter - Virginia Flanagan RN - 08/22/2016 4:39 PM PSTReturn ed call to respiratory/EKG department at [facility] at [phone] (Eden was unavail able). Left voicemail to call back regarding the allergy to adhesive - which I have already discus sed with them when the order was faxed. 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 documented in this encount er Plan of Treatment Not on filedocumented as of this encounter Visit Diagnoses Not on filedocumented in this encounter"
--- OUTSIDE RECORDS SUMMARY | ~2020-05-04 | XMS | Encounter Summary ---
Demographics + + + | Address | [address] | | | [place] [address] | + + + | Home Phone [...] + + + | Author | [facility] | + + + | Organization | [facility] | + + + | Address | Unknown | + + + | Phone | Unavailable | + + + Support + + + + + | Name | Relationship | Address | Phone | + + + + + | Gene Gee | ECON | [address] | | | | | [place], | | | | | [place] [address] | | + + + + + Care Team Providers + +------+ + | Care Transportation Driver Name | Role | Phone | + +------+ + | Antony Ribera MD | PCP | | + +------+ + Encounter Details +--------+ + + + + | Date | Type | Department | Care Team | Description | +--------+ + + + + | 09/11/ | Abstract | Cardiology | Elijah Whalen, | | | 2017 | | Arrhythmia at [facility] | [address] | | | | | [address] | [address] | | | | | [facility] | [place], [place] | | | | | and Healing, | [address] | | | | | [facility] | [phone] | | | | | Floor [place], [place] | | | | | | [address] | | | | | | [phone] | | | +--------+ + + + [...]
--- OUTSIDE RECORDS SUMMARY | ~2020-05-04 | XMS | Encounter Summary ---
Demographics + + + | Address | [address] | | | [place] [address] | + + + | Home Phone | | + + + | Preferred Language | Unknown | + + + | Marital Status | | + + + | Jainism Affiliation | CHR | + + + | Race | White | + + + | Ethnic Group | Not or | + + + Author + + + | Author | [facility] | + + + | Organization | [facility] | + + + | Address | Unknown | + + + | Phone | Unavailable | + + + Support + + + + + | Name | Relationship | Address | Phone | + + + + + | Gene Gee | ECON | [address] | | | | | [place], | | | | | [place] [address] | | + + + + + Care Team Providers + +------+ + | Care Pheresis Nurse Name | Role | Phone | + +------+ + | Antony Ribera MD | PCP | | + +------+ + Reason for Visit +---------+ + | Reason | Comments | +---------+ + | Post Op | op 10/04/12 R breast Te exchange to implant and L breast reduction | +---------+ + Global Period - Transplant [...] | | | | | | | [facility] | | | | | | | Health and | | | | | | | Healing, | | | | | | | [address], | | | | | | | [address]th Floor | | | | | | | [place], [place] | | | | | | | [address] | | | | | | | Phone: | | | | | | | [phone] | +--------+--------+ + + + + Encounter Details +--------+---------+ + + + | Date | Type | Department | Care Team | Description | +--------+---------+ + + + | 10/17/ | Office | Plastic and | Errol Gold | Carcinoma in situ of | | 2012 | Visit | Reconstructive | MD [address] | breast (Primary | | | | Surgery at [facility] [address]); Acquired | | | | [facility] | [address] [place], [place] | Absence of Breast | | | | for Health and | [id number] | | | | | Healing, [address], | | | | | | 5th Floor | | | | | | [place], [place] | | | | | | [address] | | | | | | [phone] | | | +--------+---------+ + + + [...] documented as of this encounter Progress Notes Simran Roque MA - 10/17/2012 2:52 PM PDTAdditional staff support provided to the pat ient during this encounter included: The remaining sutures were removed from Miss Flynn left breast. She was then placed in a fl ex master april wrap for further support and compression. Anabelle Buchanan, Magui Holman - 10/17/2012 12:57 PM PDTPlastic and Reconstructive Surgery Follow-up History of Present Illness: Adriana Flynn is a 67 y.o. female presents today status-post r ight breast tissue drafter (cad) electrical removal with placement of silicone implants, right breast capsul otomy and lateral capsulorrhaphy, left breast mastopexy for symmetry on October 04, 2012. She was seen last week for left breast swelling. She reports that the swelling has improved some what, but she still has pain, especially in the superior portion of the breast. She denies a ny redness, warmth, drainage or fevers. Physical Exam: Vitals: There were no vitals taken for this visit. General Appearance: Well-developed, well-nourished adult female in no apparent distress. Right breast: Incision healing well, erythema absent, mild edema, fluctuance absent, resol ving ecchymosis. Implant in good position, soft. No discrete masses. Capsular contracture: Mak grade I. Left breast: Incision healing well, erythema absent, moderate edema, fluctuance present sup eriorly, moderate resolving ecchymosis. Examined with ultrasound and fluid collection noted in superior breast between subcutaneous tissue and breast tissue. Edema noted within breast tissue. Sutures present along inferior incision (vertical portion). Nipple pink with decreas ed sensation Impression: Left breast fluid collection Plan: Using sterile technique and ultrasound guidance, 55 cc of serosanguinous fluid was aspirate d. The fluid was dark in color. I believe this represents a resolving hematoma. Patient repo rted immediate relief of pain with procedure. No fluid noted on post-procedure ultrasound. W e will wrap the breasts to provide some compression over the next week. Follow up one week. We discussed plan for additional drainage (one more time) if needed and if she had recurrenc e of fluid after that a consult to interventional radiology to place a drain. Regardless of her fluid collection, she does have significant swelling of the breast tissue on the left wh ich is consistent with early post-operative change. It will take several months for this to subside and for her symmetry to improve. 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
--- OUTSIDE RECORDS SUMMARY | ~2020-05-04 | XMS | Encounter Summary ---
Demographics + + + | Address | [address] | | | [place] [address] | + + + | Home Phone | | + + + | Preferred Language | Unknown | + + + | Marital Status | | + + + | Catholic Affiliation | 1013 | + + + | Race | White | + + + | Ethnic Group | Not or | + + + Author + + + | Author | [facility] | | | and [place] | + + + | Organization | [facility] | | | [...] Team Providers + +------+ + | Care Washing Machine Operator Name | Role | Phone | + +------+ + | Alec Hill MD | PCP | | + +------+ + Reason for Visit + + + | Reason | Comments | + + + | Follow-up | 6 month | + + + Encounter Details +--------+---------+ + + + | Date | Type | Department | Care Team | Description | +--------+---------+ + + + | 10/06/ | Office | [facility] | Martin Kelley, | Paroxysmal atrial | | 2019 | Visit | CARDIOLOGY ELIZA | [address] | fibrillation ([facility]); | | | | [address] | [place]ACH[place] F [place]A, | Atrial tachycardia | | | | [place], [place] | [place] [address] | ([facility]); Congestive | | | | [address] | [phone] | heart failure of | | | | [phone] | | unknown etiology | | | | | | ([facility]) | +--------+---------+ + + + Social History [...] + + + | Blood Pressure | 140/70 | 10/07/2019 10:31 AM | | | | | PDT | | + + + + + | Pulse | 55 | 10/07/2019 10:31 AM | | | | | PDT | | + + + + + | Temperature | - | - | | + + + + + | Respiratory Rate | - | - | | + + + + + | Oxygen Saturation | 98% | 10/07/2019 10:31 AM | | | | | PDT | | + + + + + | Inhaled Oxygen | - | - | | | Concentration | | | | + + + + + | Weight | 63.5 kg (140 lb) | 10/07/2019 10:31 AM | | | | | PDT | | + + + + + | Height | 165.1 cm (5' 5") | 10/07/2019 10:31 AM | | | | | PDT | | + + + + + | Body Mass Index | 23.3 | 10/07/2019 10:31 AM | | | | | PDT | | + + + + + documented in this encounter Patient Instructions Patient Instructions Martin Kelley MD - 10/07/2019 10:30 AM PDTIf you develop atrial fi brillation with a rapid rate, take an extra or early dose of bisoprolol right then (5 mg). You can take an early dose of dofetilide also. Start hydralazine 10 mg twice per day to decrease the leak in your mitral and tricuspid julian ves. If the blood pressure is consistently over 125-130 systolic, increase it to 3 times pe r day. If it is still high, increase it to 2 pills twice per day documented in this encounter Progress Notes Martin Kelley MD - 10/07/2019 10:30 AM PDTFormatting of this note might be different fr om the original. ELECTROPHYSIOLOGY OUTPATIENT FOLLOW UP PATIENT NAME: Adriana Flynn : 1945: AGE: 74 y.o. (home) : PRIMARY CARE: Alec Hill MD Requesting Physician: Dr. Hill Plan EP PROBLEMS ADDRESSED AT TODAY'S VISIT Problem List Atrial tachycardia Overview Hx of s/p successful ablation of stacey tach 2004. 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 Successfully suppressed with dofetilide- however Tikosyn was discontinued 04/[address] Elijah Whalen because of inadequ ate control of symptoms and atrial fibrillation during eye surgery. Dofetilide was resumed on July 31, 2017 and she converted from atrial fibrillation back to sinus rhythm after the first do se. Continue dofetilide indefinitely, but lower the dose to 500 g every morning and 250 g every evening, because the QTC was prolonged today (505 ms). A recent potassium was 4.0 and I've recommended adding 10 meq of potassium per day to her regimen. Empirically add magnesium o xide 400 mg per day also. Continue bisoprolol 5 mg twice a day for rate control. Continue rivaroxaban. 04/02/18: She is doing well, with no atrial fibrillation. She has rare ectopic beats. The QTC today w as 509 ms, so dofetilide dose will be decreased to 250 g twice a day. Her anticoagulant wi ll be switched to apixaban 5mg bid. Bisoprolol will be changed from 5 mg twice a day to 10 [address] morning. 10/01/18: Doing well on current treatment. Has an occasional "arrhythmia" lasting for a few seconds a t a time but nothing sustained. A recent potassium was 3.9. We will therefore increase potas sium to 20 mEq per day. A recent creatinine was 0.64 and BUN17. 10/07/2019: Has occasional fluttering. Lasts up to 5 minutes. Uncertain rhythm. Uncertain rate. Con tinue current therapy for now. Add hydralazine to help decrease the amount of mitral regurg itation. Congestive heart failure of unknown etiology Overview She had normal LV systolic function and moderate MR and TR on an echo. Probable diastoli c dysfunction leading to heart failure previously. (In the context of atrial tachycardia) 04/02/18 She has trace edema in the lower extremities that resolves with support stockings and when she lays down. Losartan will be increased to 100 mg daily at bedtime because of moderate M R and TR. 10/01/18: Doing well on current treatment. Continue it. 04/08/2019: She is doing well on current therapy. She has avoided salt, with significant weight loss. An echo will be repeated at the next visit. 10/07/2019: Add hydralazine starting with 12.5 mg twice daily to the current regimen. Increase that as she tolerates, to treat the mitral regurgitation Paroxysmal atrial fibrillation Overview Her chads 2 vascular score is 3.Preserved LV systolic function EF 55% on most recent ech o with moderately dilated LA. moderate MR and TR. On apixaban, with no signs or symptoms of bleeding. Continue Bisoprolol 5 mg twice a day for rate control, given underlying asthma. She can take 5-10 mg if needed for fast heart rates (pill in a pocket approach) . Continue D ofetilide 250mcg BID. Her chads 2 vascular score is 3. 10/01/18: Doing well on current therapy. Has occasional "arrhythmia" lasting for a few seconds but no thing sustained. Continue current therapy. Increase potassium to 20 meq per day, since a rec ent potassium was 3.9 (July 2018) 04/08/2019: There have been no episodes of atrial fibrillation. Continue current therapy. 10/07/2019: Doing well. Has occasional "flutters" that last up to 5 minutes. Has not taken her pulse rate. Recent labs from July 29, 2019 include a potassium of 4.3, creatinine 0.82, BUN 15 . Liver function tests were normal. Cholesterol was 175 with HDL of 53 LDL 106 and triglyc erides 80. Hemoglobin is 14.0. Recommendations: For racing heartbeat, take an extra 5 mg of bisoprolol if needed. (Or take it early) COMPREHENSIVE PROBLEM LIST Patient Active Problem List Diagnosis Date Noted Congestive heart failure of unknown etiology (HCC) 07/29/2017 Priority: High Note Last Updated: 10/08/2019 She had normal LV systolic function and moderate MR and TR on an echo. Probable diastoli c dysfunction leading to heart failure previously. (In the context of atrial tachycardia) 04/02/18 She has trace edema in the lower extremities that resolves with support stockings and when she lays down. Losartan will be increased to 100 mg daily at bedtime because of moderate M R and TR. 10/01/18: Doing well on current treatment. Continue it. 04/08/2019: She is doing well on current therapy. She has avoided salt, with significant weight loss. An echo will be repeated at the next visit. 10/07/2019: Add hydralazine starting with 12.5 mg twice daily to the current regimen. Increase that as she tolerates, to treat the mitral regurgitation Chronic anticoagulation 07/29/2017 Priority: High Age-related osteoporosis without current pathological fracture 08/07/2018 Note Last Updated: 04/08/2019 Reclast [id number]; September 2018 DXA 06/13/17: L -1.4 H -1.5 DXA 06/02/15: L -1.6 H -1.9 DXA 06/06/13; L -1.6 H -1.9 DXA 04/28/11: L -1.8 H -1.8 DXA 01/27/10: L -1.9 H -1.6 DXA 12/28/08: L -1.9 H -1.5 History of breast cancer 09/30/2017 Note Last Updated: 02/27/2019 Diagnosed in February 2007. Treated with right mastectomy in March 2007. Treated with chemotherapy including Taxotere, Cytoxan, and Neulasta (until August 2007). Lymphedema of the right arm in October 2007. Reconstructive breast surgery with implant from June 2012 until April 2014. On Arimidex for 5 years. Will be getting another reclast injection. Sjogren's disease (HCC) 09/30/2017 Note Last Updated: 02/27/2019 Diagnosed in 1995. Also has had fibromyalgia. History of asthma 09/30/2017 Note Last Updated: 02/27/2019 Diagnosed in 1999 at [facility]. On albuterol and ipratropium bromide nebulizer and Pulmicort/ Flonase and Spiriva inhalers. Hx of pulmonary embolus 09/30/2017 Note Last Updated: 02/27/2019 She had a right leg deep venous thrombosis and pulmonary embolus involving the left lung on September 17, 2008, in the context of recent breast cancer therapy. Moderate tricuspid regurgitation by prior echocardiogram 08/02/2017 Note Last Updated: 04/08/2019 Moderate MR and TR on echo. Continue losartan. Repeat an echo next visit (2 years after the last visit) Atrial tachycardia (HCC) 07/31/2017 Note Last Updated: 10/08/2019 Hx of s/p successful ablation of stacey tach 2005. 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 Successfully suppressed with dofetilide- however Tikosyn was discontinued 04/[address] Elijah Whalen because of inadequ ate control of symptoms and atrial fibrillation during eye surgery. Dofetilide was resumed on July 31, 2017 and she converted from atrial fibrillation back to sinus rhythm after the first do se. Continue dofetilide indefinitely, but lower the dose to 500 g every morning and 250 g every evening, because the QTC was prolonged today (505 ms). A recent potassium was 4.0 and I've recommended adding 10 meq of potassium per day to her regimen. Empirically add magnesium o xide 400 mg per day also. Continue bisoprolol 5 mg twice a day for rate control. Continue rivaroxaban. 04/02/18: She is doing well, with no atrial fibrillation. She has rare ectopic beats. The QTC today w as 509 ms, so dofetilide dose will be decreased to 250 g twice a day. Her anticoagulant wi ll be switched to apixaban 5mg bid. Bisoprolol will be changed from 5 mg twice a day to 10 mg [address] morning. 10/01/18: Doing well on current treatment. Has an occasional "arrhythmia" lasting for a few seconds a t a time but nothing sustained. A recent potassium was 3.9. We will therefore increase potas sium to 20 mEq per day. A recent creatinine was 0.64 and BUN17. 10/07/2019: Has occasional fluttering. Lasts up to 5 minutes. Uncertain rhythm. Uncertain rate. Con tinue current therapy for now. Add hydralazine to help decrease the amount of mitral regurg itation. Paroxysmal atrial fibrillation (HCC) 07/31/2017 Note Last Updated: 10/07/2019 Her chads 2 vascular score is 3.Preserved LV systolic function EF 55% on most recent ech o with moderately dilated LA. moderate MR and TR. On apixaban, with no signs or symptoms of bleeding. Continue Bisoprolol 5 mg twice a day for rate control, given underlying asthma. She can take 5-10 mg if needed for fast heart rates (pill in a pocket approach) . Continue D ofetilide 250mcg BID. Her chads 2 vascular score is 3. 10/01/18: Doing well on current therapy. Has occasional "arrhythmia" lasting for a few seconds but no thing sustained. Continue current therapy. Increase potassium to 20 meq per day, since a rec ent potassium was 3.9 (July 2018) 04/08/2019: There have been no episodes of atrial fibrillation. Continue current therapy. 10/07/2019: Doing well. Has occasional "flutters" that last up to 5 minutes. Has not taken her pulse rate. Recent labs from July 29, 2019 include a potassium of 4.3, creatinine 0.82, BUN 15 . Liver function tests were normal. Cholesterol was 175 with HDL of 53 LDL 106 and triglyc erides 80. Hemoglobin is 14.0. Recommendations: For racing heartbeat, take an extra 5 mg of bisoprolol if needed. (Or take it early) Mitral valve prolapse 07/31/2017 Note Last Updated: 02/27/2019 MVP Dx 20 years ago. 07/23/2017 TTE Impression 1. Atrial fibrillation with rapid ventricular response. 2. The left ventricle is normal in size, wall thickness and systolic function EF 55%. 3. The right ventricle is normal in size and function. 4. Moderate mitral regurgitation and moderately enlarged left atrium. 5. Moderate tricuspid regurgitation with no pulmonary hypertension. 6. There is no pericardial effusion. Losartan will be increased to 100mg QHS, to treat the moderate MR and TR. She previously s topped lisinopril because of a cough . Acquired absence of breast and nipple 04/06/2014 Asthma 02/03/2014 Breast cancer, right (HCC) 05/21/2008 Recommendations: If you develop atrial fibrillation with a rapid rate, take an extra or early dose of bisopr olol right then (5 mg). You can take an early dose of dofetilide also. Start hydralazine 10 mg twice per day to decrease the leak in your mitral and tricuspid julian ves. If the blood pressure is consistently over 125-130 systolic, increase it to 3 times pe r day. If it is still high, increase it to 2 pills twice per day HISTORY OF PRESENT ILLNESS This patient returns today, feeling well from a cardiac perspective. She has had no sympto ms of angina, CHF, dizziness or syncope. She has had occasional "fluttering" that used to l ast for seconds and now it lasts up to 5 minutes at a time. On September 12, 2019 when she w as standing up, the room suddenly started spinning and her legs were weak. She has not had that previously or since. She takes minimal wine and avoids caffeine. Has some burning in the left anterior leg occasionally (well localized). Chronic abdominal pain for 25 years related to "adhesions" for multiple surgeries. She has discomfort in her fingers if she takes wheat products. Has fibromyalgia. Allergies Allergen Reactions Cardizem [Diltiazem] Hives Localized near IV site Sulfa Antibiotics Other (See Comments) and Unknown Adhesive & Tape Rash Ok with coban Celecoxib Other (See Comments) RASH Ciprofloxacin Rash Rash Flecainide Other (See Comments) GI distress Lactose Cough Intestinal/congestion. Intestinal/congestion. Intestinal/congestion. Lisinopril Other (See Comments) Dry hacky continuous cough Propafenone Other (See Comments) Rash, hives Crestor [Rosuvastatin] Myalgia Muscle Pain, "muscle spasms" Dofetilide Other (See Comments) Albuterol Other (See Comments), Palpitations and Nausea And Vomiting Dexlansoprazole Palpitations Duloxetine Other (See Comments) and Rash Gluten Meal GI Upset GI distress Hydrochlorothiazide W-Triamterene Other (See Comments) BREAST LUMPS Milk-Related Compounds GI Upset and Cough GI distress Uncoded Nonscreenable Allergen GI Upset "kapidex" Current Medications Current Outpatient Medications: albuterol (PROVENTIL) 2 mg tablet, Take 2 mg by mouth., Disp: , Rfl: albuterol-ipratropium 2.5-0.5 mg/3 mL SOLN, Inhale 3 mLs into the lungs every 6 hours as needed., Disp: , Rfl: apixaban (ELIQUIS) 5 mg tablet, Take 1 tablet by mouth 2 times daily., Disp: 180 table t, Rfl: 3 bisoprolol (ZEBETA) 10 MG tablet, Take 1 tablet by mouth Daily., Disp: 90 tablet, Rfl: 3 budesonide (PULMICORT FLEXHALER) 180 mcg/puff inhaler, Inhale 2 puffs into the lungs., Disp: , Rfl: calcium citrate-vitamin D (CITRACAL+D) 315 mg-200 units per tablet, 2 tabs in evening and liquid calcium citrate in AM, Disp: , Rfl: carboxymethylcellulose (REFRESH TEARS) 0.5% ophthalmic solution, Place 1 drop into bot h eyes 3 (three) times daily as needed., Disp: , Rfl: carboxymethylcellulose, PF, (THERATEARS) 0.25% ophthalmic solution, Place 1 drop in ea r(s)., Disp: , Rfl: cetirizine (ZYRTEC) 10 mg tablet, Take 10 mg by mouth Daily., Disp: , Rfl: cholecalciferol (VITAMIN D-3) 1,000 units capsule, Take 3,000 Units by mouth., Disp: , Rfl: cycloSPORINE (RESTASIS) 0.05% ophthalmic emulsion, 1 drop 2 times daily., Disp: , Rfl: dofetilide (TIKOSYN) 250 mcg capsule, Take 1 capsule by mouth 2 times daily., Disp: 18 0 capsule, Rfl: 11 ezetimibe (ZETIA) 10 mg tablet, Take 1 tablet by mouth Daily., Disp: 90 tablet, Rfl: 3 fluticasone (FLONASE) 50 mcg/nasal spray, 1 spray by Each Nare route 2 (two) times bay ly., Disp: , Rfl: hydrALAZINE (APRESOLINE) 10 mg tablet, Take 1 tablet by mouth 3 times daily., Disp: 90 tablet, Rfl: 11 ipratropium (ATROVENT HFA) 17 mcg/puff inhaler, Inhale 2 puffs into the lungs every 6 hours., Disp: , Rfl: ipratropium (ATROVENT) 500 mcg/2.5 mL nebulizer solution, Inhale 0.5 mg into the lungs ., Disp: , Rfl: levalbuterol (XOPENEX HFA) 45 mcg/puff inhaler, Inhale 1-2 puffs into the lungs., Disp : , Rfl: levalbuterol (XOPENEX HFA) 45 mcg/puff inhaler, , Disp: , Rfl: levalbuterol (XOPENEX) 1.25 mg/3 mL nebulizer solution, Inhale 1.25 mg into the lungs. , Disp: , Rfl: loratadine (CLARITIN) 10 mg tablet, Take 10 mg by mouth Daily., Disp: , Rfl: LORazepam (ATIVAN) 0.5 mg tablet, Take 0.5 mg by mouth., Disp: , Rfl: LORazepam (ATIVAN) 1 mg tablet, Take 0.5 mg by mouth., Disp: , Rfl: losartan (COZAAR) 100 MG tablet, Take 1 tablet by mouth nightly., Disp: 90 tablet, Rfl : 3 MAGNESIUM PO, Take 1 tablet by mouth., Disp: , Rfl: methylPREDNISolone (MEDROL DOSEPAK) 4 mg tablet, , Disp: , Rfl: ofloxacin (OCUFLOX) 0.3% ophthalmic solution, 1 drop., Disp: , Rfl: Polyethylene Glycol 3350 (PEG 3350) POWD, Take 17 g by mouth Daily as needed., Disp: , Rfl: potassium chloride (KLOR-CON M20) 20 mEq ER tablet, Take 1 tablet by mouth 2 times bay ly., Disp: 180 tablet, Rfl: 3 potassium chloride (KLOR-CON) 20 MEQ packet, Take 1 packet by mouth 2 times daily., Di sp: 180 tablet, Rfl: 3 Probiotic Product (PROBIOTIC & ACIDOPHILUS EX ST) CAPS, Take by mouth., Disp: , Rfl: RABEprazole (ACIPHEX) 20 mg EC tablet, Take 20 mg by mouth 2 (two) times daily., Disp: , Rfl: tiotropium (SPIRIVA HANDIHALER) 18 mcg inhalation capsule, Inhale 18 mcg into the lung s daily., Disp: , Rfl: traMADol (ULTRAM) 50 mg tablet, Take 50 mg by mouth every 6 hours as needed., Disp: , Rfl: VITAMINS A C PO, take 1 capsule by oral route once daily with food, Disp: , Rfl: The past history, social history, family history and problem list were reviewed and update d with changes of any significance. DATA Laboratory values which I reviewed 10/08/2019 are as follows: Lab Results Component Value Date WBC 9.08 08/02/2017 RBC 4.08 08/02/2017 HGB 12.6 08/02/2017 Lab Results Component Value Date NA 145 04/02/2018 K 4.1 04/02/2018 CL 109 04/02/2018 CO2 27 04/02/2018 ANIONGAP 13 04/02/2018 GLUF 69 04/02/2018 BUN 14 04/02/2018 EGFR >60 04/02/2018 Lab Results Component Value Date GLUF 69 04/02/2018 Lab Results Component Value Date TSH 0.852 07/30/2017 No images are attached to the encounter or orders placed in the encounter. ROS I have personally reviewed and agree with ROS listed by MA attached. All other systems are reviewed and negative. PHYSICAL EXAM BP 140/70 | Pulse 55 | Ht 1.651 m (5' 5") | Wt 63.5 kg (140 lb) | SpO2 98% | BMI 23.30 kg/m Physical Exam Constitutional: She is oriented to person, place, and time. She appears well-developed and well-nourished. No distress. Well-appearing lady in no distress. She looks younger than her stated age. HENT: Head: Normocephalic and atraumatic. Eyes: Pupils are equal, round, and reactive to light. Neck: No JVD present. No thyromegaly present. Cardiovascular: Normal rate, regular rhythm, normal heart sounds and intact distal pulses. Exam reveals no gallop and no friction rub. No murmur heard. Pulmonary/Chest: Effort normal and breath sounds normal. No respiratory distress. She has n o wheezes. She has no rales. Abdominal: Soft. Bowel sounds are normal. There is no abdominal tenderness. There is no gua rding. Musculoskeletal: General: No tenderness or edema. Neurological: She is alert and oriented to person, place, and time. Skin: Skin is warm and dry. She is not diaphoretic. Psychiatric: She has a normal mood and affect. Her behavior is normal. Judgment and thought content normal. Vitals reviewed. Martin Kelley MD 10/08/2019 9:03 AM *This report has been prepared using a voice recognition system. The report was reviewed f or accuracy, however, sound-alike word errors, addition and/or deletions may occur. If there is any question about this report please contact me. Patient Instructions If you develop atrial fibrillation with a rapid rate, take an extra or early dose of bisopr olol right then (5 mg). You can take an early dose of dofetilide also. Start hydralazine 10 mg twice per day to decrease the leak in your mitral and tricuspid julian ves. If the blood pressure is consistently over 125-130 systolic, increase it to 3 times pe r day. If it is still high, increase it to 2 pills twice per day Enma Rojas CMA - 10/07/2019 10:30 AM SANTANAAnc[facility]yl[facility] MA Note- Electrophysiology Patient ID: Adriana Flynn is a 74 y.o. female. Review of Systems Constitutional: Positive for chills. Negative for fever, malaise/fatigue and weight loss. HENT: Negative for congestion and sore throat. Respiratory: Negative for cough and shortness of breath. Cardiovascular: Positive for palpitations. Negative for chest pain and leg swelling. Gastrointestinal: Positive for abdominal pain. Negative for blood in stool. Genitourinary: Negative for hematuria. Musculoskeletal: Positive for myalgias. Neurological: Positive for dizziness. Negative for sensory change and loss of consciousness . Have you ever had a sleep study? no Do you use oxygen? (NO) Do you use CPAP? (NO) Do you snore? (NO) Do you fall asleep for no reason during the day? (NO) Do you stop breathing at night? (NO) Do you feel excessively tired during the day? (NO) documented in this en counter Plan of Treatment +--------+ + + + + | Date | Type | Specialty | Care Team | Description | +--------+ + + + + | 05/19/ | Office | Orthopedic Surgery | Tee Choi, | | | 2019 | Visit | | [address] | | | | | | [place] [address] | | | | | | [phone] | | | | | | | | +--------+ + + + + | 05/19/ | Appointment | Cardiology | Martin Kelley, | | | 2019 | | | MD [address] | | | | | | [place] | | | | | | [place] [address] | | | | | | [phone] | | | | | | | | +--------+ + + + + | 11/26/ | Office | Cardiology | Martin Kelley, | | | 2020 | Visit | | MD [address] | | | | | | [place] | | | | | | [place] [address] | | | | | | [phone] | | | | | | | | +--------+ + + + + documented as of this encounter Visit Diagnoses + + | Diagnosis | + + | Paroxysmal atrial fibrillation (HCC) Atrial fibrillation | + + | Atrial tachycardia (HCC) Other specified cardiac dysrhythmias | + + | Congestive heart failure of unknown etiology (HCC) | + + documented in this encounter
--- OUTSIDE RECORDS SUMMARY | ~2020-05-04 | XMS | Encounter Summary ---
Demographics + + + | Address | [address] | | | [place] [address] | + + + | Home Phone | | + + + | Preferred Language | Unknown | + + + | Marital Status | | + + + | Congregational Affiliation | CHR | + + + [...] + | Gene Gee | ECON | [address] | | | | | [place], | | | | | [place] [address] | | + + + + + Care Team Providers + +------+ + | Care Stick Puller Name | Role | Phone | + +------+ + | Alec Hill MD | PCP | | + +------+ + Encounter Details +--------+ + + + + | Date | Type | Department | Care Team | Description | +--------+ + + + + | 02/02/ | Document-Sc | John Rudolph | Tapan Horowitz MD | | | 2020 | anned | [facility] | [address] | | | | | [facility] | [facility], | | | | | [address] | [place] [address] | | | | | [address] | [phone] | | | | | [facility] | | | | | | Physician's | | | | | | [place], | | | | | | [place] [address] | | | | | | [phone] | | | +--------+ + + + [...] + | VITAMIN D, | Routin | 02/03/2020 | | Results for this | | 25-HYDROXY, SERUM | e | | | procedure are in the | | | | | | results section. | + +--------+ + + + | COMPLETE METABOLIC | Routin | 02/03/2020 | | Results for this | | SET | e | | | procedure are in the | | (NA,K,CL,CO2,BUN,CRE | | | | results section. | | AT,GLUC,CA,AST,ALT,B | | | | | | DANICA TOTAL,ALK | | | | | | PHOS,ALB,PROT TOTAL) | | | | | + +--------+ + + + documented in this encounter Results VITAMIN D, 25-HYDROXY, SERUM (02/03/2020) + +-------+ + + + | Component | Value | Ref Range | Performed | Pathologist | | | | | At | Signature | + +-------+ + + + | VITAMIN D | 43.0 | ng/mL | [facility] | | | 25 HYDROXY | | | LAB | | + +-------+ + + + + + | Specimen | + + | Blood - Blood | | (substance) | + + + + + + + | Performing | Address | City/State/Zipcode | Phone Number | | Organization | | | | + + + + + | [facility] | [address] | [place], [place] | | | | [address] | [address] | | + + + + + COMPLETE METABOLIC SET (NA,K,CL,CO2,BUN,CREAT,GLUC,CA,AST,ALT,BILI TOTAL,ALK PHOS,ALB,PROT TOTAL) (02/03/2020) + +-------+ + + + | Component | Value | Ref Range | Performed | Pathologist | | | | | At | Signature | + +-------+ + + + | GLUCOSE, | 80 | 65 - 110 mg/dL | [facility] | | | PLASMA | | | LAB | | | (LAB) | | | | | + +-------+ + + + | BUN, PLASMA | 15 | mg/dL | [facility] | | | (LAB) | | | LAB | | + +-------+ + + + | CREATININE | 0.78 | mg/dL | [facility] | | | PLASMA | | | LAB | | | (LAB) | | | | | + +-------+ + + + | TOTAL | 6.4 | g/dL | [facility] | | | PROTEIN, | | | LAB | | | PLASMA | | | | | | (LAB) | | | | | + +-------+ + + + | ALBUMIN, | 3.7 | g/dL | [facility] | | | PLASMA | | | LAB | | | (LAB) | | | | | + +-------+ + + + | CALCIUM, | 9.3 | mg/dL | [facility] | | | PLASMA | | | LAB | | | (LAB) | | | | | + +-------+ + + + | BILIRUBIN | 0.6 | Transcutaneous | [facility] | | | TOTAL | | Bilirubinometer | LAB | | + +-------+ + + + | ALK PHOS | 58 | U/L | [facility] | | | | | | LAB | | + +-------+ + + + | AST(SGOT) | 18 | U/L | [facility] | | | | | | LAB | | + +-------+ + + + | SODIUM, | 141 | mmol/L | [facility] | | | PLASMA | | | LAB | | | (LAB) | | | | | + +-------+ + + + | POTASSIUM, | 4.1 | mmol/L | [facility] | | | PLASMA | | | LAB | | | (LAB) | | | | | + +-------+ + + + | CHLORIDE, | 109 | mmol/L | [facility] | | | PLASMA | | | LAB | | | (LAB) | | | | | + +-------+ + + + | TOTAL CO2, | 26 | mmol/L | [facility] | | | PLASMA | | | LAB | | | (LAB) | | | | | + +-------+ + + + | ALT (SGPT) | 17 | U/L | [facility] | | | | | | LAB | | + +-------+ + + + + + | Specimen | + + | Blood - Blood | | (substance) | + + + + + + + | Performing | Address | City/State/Zipcode | Phone Number | | Organization | | | | + + + + + | [facility] | [address] | [place], [place] | | | | [facility] | [address] | | + + + + + documented in this encounter Visit Diagnoses Not on filedocumented in this encounter"
--- OUTSIDE RECORDS SUMMARY | ~2020-05-04 | XMS | Encounter Summary ---
Demographics + + + | Address | [address] | | | [place] [address] | + + + | Home Phone | | + + + | Preferred Language | Unknown | + + + | Marital Status | | + + + | Christian Affiliation | CHR | + + + | Race | White | + + + | Ethnic Group | Not or | + + + Author + + + | Author | [facility] | + + + | Organization | [facility] | + + + | Address | Unknown | + + + | Phone | Unavailable | + + + Support + + + + + | Name | Relationship | Address | Phone | + + + + + | Gene Gee | ECON | [address] | | | | | [place], | | | | | [place] [address] | | + + + + + Care Team Providers + +------+ + | Care Instructor Of Education Name | Role | Phone | + +------+ + | Antony Ribera MD | PCP | | + +------+ + Encounter Details +--------+ + + + + | Date | Type | Department | Care Team | Description | +--------+ + + + + | 10/30/ | MyChart | Cardiology | Gary Fuentes MD | RE: Arrythmia and | | 2015 | Encounter | Arrhythmia at [facility] | [address] | lopressor | | | | [address] | [address] [place], | | | | | [place] for [facility] | [place] [address] | | | | | and Healing, | [phone] | | | | | Building | | | | | | Floor [place], [place] | | | | | | [address] | | | | | | [phone] | | | +--------+ + + + [...]
--- OUTSIDE RECORDS SUMMARY | ~2020-05-04 | XMS | Encounter Summary ---
Demographics + + + | Address | [address] | | | [place] [address] | + + + | Home Phone | | + + + | Preferred Language | Unknown | + + + | Marital Status | | + + + | Uatsdin Affiliation | 1013 | + + + | Race | White | + + + | Ethnic Group | Not or | + + + Author + + + | Author | [facility] | | | and [place] | + + + | Organization | [facility] | | | [...] Team Providers + +------+ + | Care Motorcycle Police Name | Role | Phone | + +------+ + PCP | Unavailable | + +------+ + Encounter Details +--------+ + + + + | Date | Type | Department | Care Team | Description | +--------+ + + + + | 06/30/ | [facility] | [facility] | Ki Snell | | | 2007 | Encounter | MED CTR GENERIC OP | MD [address] | | | | | CONV DEPT [address] | | | | | [place], | [place] [address] | | | | | [place] [address] | [phone] | | | | | [phone] | | | +--------+ + + + [...] | | | | | [place] [address] | | | | | | [phone] | | | | | | | | +--------+ + + + + | 05/19/ | Appointment | Cardiology | Martin Kelley, | | | 2019 | | | MD [address] | | | | | | [place], | | | | | | [place] [address] | | | | | | [phone] | | | | | | | | +--------+ + + + + | 11/26/ | Office | Cardiology | Martin Kelley, | | | 2020 | Visit | | MD [address] | | | | | | [place], | | | | | | [place] [address] | | | | | | [phone] | | | | | | | | +--------+ + + + + documented as of this encounter Visit Diagnoses Not on filedocumented in this encounter"
--- OUTSIDE RECORDS SUMMARY | ~2020-05-04 | XMS | Encounter Summary ---
Demographics + + + | Address | [address] | | | [place] [address] | + + + | Home Phone | | + + + | Preferred Language | Unknown | + + + | Marital Status | | + + + | Mosque Affiliation | CHR | + + + | Race | White | + + + | Ethnic Group | Not or | + + + Author + + + | Author | [facility] | + + + | Organization | [facility] | + + + | Address | Unknown | + + + | Phone | Unavailable | + + + Support + + + + + | Name | Relationship | Address | Phone | + + + + + | Gene Gee | ECON | [address] | | | | | [place], | | | | | [place] [address] | | + + + + + Care Team Providers + +------+ + | Care First Assist Name | Role | Phone | + +------+ + | Antony Ribera MD | PCP | | + +------+ + Reason for Visit + +--------+ + | Reason | Onset | Comments | | | Date | | + +--------+ + | Discharge From | 06/14/ | | | Nipple | 2008 | | + +--------+ + Encounter Details +--------+ + + + + | Date | Type | Department | Care Team | Description | +--------+ + + + + | 06/14/ | Telephone | Surgical Oncology | Henri Heart, | Discharge From | | 2008 | | at [facility] [address] | MD [address] | Nipple | | | | Ave Center for | [place], [place] | | | | | Health and Healing, | [address] | | | | | [address] | [phone] | | | | | [place], [place] | | | | | | [address] | | | | | | [phone] | | | +--------+ + + + [...] this encounter Miscellaneous Notes Telephone Encounter - Claribel Garza RN - 06/14/2009 10:23 AM PSTPatient called to report that she had 2 occasions of left breast nipple discharge. The discharge was scant and spont aneous. She has not been able to reproduce the discharge. She noted a small spot on her T- irt in the am. The discharge is clear. Will discuss with Dr. Heart and contact patient. raquel agreed to this plan. Time spent 10 minutes. documented in this encounter Plan of Treatment Not on filedocumented as of this encounter Visit Diagnoses Not on filedocumented in this encounter"
--- OUTSIDE RECORDS SUMMARY | ~2020-05-04 | XMS | Encounter Summary ---
Demographics + + + | Address | [address] | | | [place] [address] | + + + | Home Phone | | + + + | Preferred Language | Unknown | + + + | Marital Status | | + + + | Shinto Affiliation | CHR | + + + [...] + | Gene Gee | ECON | [address] | | | | | [place], | | | | | [place] [address] | | + + + + + Care Team Providers + +------+ + | Care Sap Sd Analyst Name | Role | Phone | + +------+ + | Antony Ribera MD | PCP | | + +------+ + Reason for Visit +--------+ + | Reason | Comments | +--------+ + | Other | | +--------+ + Encounter Details +--------+ + + + + | Date | Type | Department | Care Team | Description | +--------+ + + + + | 04/01/ | Telephone | Digestive Health | Bob Reyna MD | Other | | 2007 | | [place] [address] [address] | [address] | | | | | [address] | [place], [place] | | | | | for Health and | [address] | | | | | [facility] 2 | [phone] | | | | | [place], [place] | | | | | | [address] | | | | | | [phone] | | | +--------+ + + + [...] this encounter Miscellaneous Notes Telephone Encounter - Madeline Krsihna - 04/02/2008 12:53 PM PDTLabs ordered. Pt was admitte d into the hosp yesterday. We will try to coordinate f/u appts with Dr. Reyna and Dr. Jake montano once the pt is d/c'ed from the hosp. From Bob Reyna MD. Sent Apr 02, 2008 12:40 PM To Madeline Krishna Message: CBC, plts, diff, INR, CMP elephone Encounter - Virginia Joe - 04/02/2008 8:53 AM PDTEmanirmal Dawkins asking if we can get in sooner. I will call patient with time and date when I get a response. elephone Encounter - Madeline Krishna - 04/01/2008 1:38 PM P DTStepjudit, let's see if we can get her in sooner. Dr. Reyna, does she need any pre-clinic tests? Thanks. elephone Denny JerezeDonna - 04/01/2008 10:59 AM PDTCarol called and need a sooner appointme nt than 07/29/2008, she has been in the ER 2 times in the past 2 months, she has some CD's wi th some information and test on them and she will be sending them today Attn: Dr. Read ronically signed by Donna Gooden at 04/01/2008 10:59 AM PDTdocumented in this encounter Plan of Treatment Not on filedocumented as of this encounter Results INR (08/14/2008 7:50 AM PST) + + + + + + | Component | Value | Ref Range | Performed | Pathologist | | | | | At | Signature | + + + + + + | INR | See cmnt | 0.90 - 1.20 INR | [facility] | | | | | | DEPARTMENT | | | | | | OF | | | | | | PATHOLOGY | | + + + + + + + + | Specimen | + + | Blood - Blood | + + + + + | Narrative | Performed At | + + + | Test rescheduled | [facility] | | | DEPARTMENT OF | | | PATHOLOGY | + + + + + + + + | Performing | Address | City/State/Zipcode | Phone Number | | Organization | | | | + + + + + | [facility] DE[facility]MENT [facility] | [address] | [place] [address] | | | PATHOLOGY | [address] | | | + + + + + | [facility] | [address] | [place] [address] | | | PATHOLOGY | [address] | | | + + + + + documented in this encounter Visit Diagnoses + + | Diagnosis | + + | Liver cyst - Primary Other specified disorders of liver | + + documented in this encounter"
--- OUTSIDE RECORDS SUMMARY | ~2020-05-04 | XMS | Encounter Summary ---
Demographics + + + | Address | [address] | | | [place] [address] | + + + | Home Phone [...] + | Gene Gee | ECON | [address] | | | | | [place], | | | | | [place] [address] | | + + + + + Care Team Providers + +------+ + | Care Hand Straightener Name | Role | Phone | + +------+ + | Antony Ribera MD | PCP | | + +------+ + Encounter Details +--------+ + + + + | Date | Type | Department | Care Team | Description | +--------+ + + + + | 03/09/ | Abstract | Hematology/Medical | Stevan Velazquez, | | | 2008 | | Oncology at [facility] | [address] | | | | | [address] | [place], [place] | | | | | Mailcode: [place] | [address] | | | | | [facility] | [phone] | | | | | and Healing, | | | | | | Building | | | | | | Floor [place], [place] | | | | | | [address] | | | | | | [phone] | | | +--------+ + + + [...] documented as of this encounter Progress Notes Rosalinda Palacios RN - 03/09/2009 10:52 AM PDTReceived lab results from [facility] , ordered by pcp's office in [place], [place]. Results entered into [facility] and will be scann ed as well. documented in this encounter Plan of Treatment Not on filedocumented as of this encounter Procedures + +--------+ + + + | Procedure Name | Priori | Date/Time | Associated Diagnosis | Comments | | | ty | | | | + +--------+ + + + | D DIMER, DIC | Routin | 03/08/2009 | | Results for this | | | e | | | procedure are in the | | | | | | results section. | + +--------+ + + + | D DIMER, DIC | Routin | 02/04/2009 | | Results for this | | | e | | | procedure are in the | | | | | | results section. | + +--------+ + + + | C-REACTIVE PROTEIN | Routin | 02/04/2009 | | Results for this | | | e | | | procedure are in the | | | | | | results section. | + +--------+ + + + | SEDIMENTATION RATE | Routin | 02/04/2009 | | Results for this | | | e | | | procedure are in the | | | | | | results section. | + +--------+ + + + documented in this encounter Results D DIMER, DIC (03/08/2009) + +---------+ + + + | Component | Value | Ref Range | Performed | Pathologist | | | | | At | Signature | + +---------+ + + + | D DIMER, | 402 (A) | 230 ug/mL | [facility] | | | DIC | | | LAB - | | | | | | [place] | | + +---------+ + + + + + + + + | Performing | Address | City/State/Zipcode | Phone Number | | Organization | | | | + + + + + | [facility] - | [address] | [place] | [phone] | | [place] | | | | + + + + + | [facility] - | | [place], [place] | | | [place] | | | | + + + + + D DIMER, DIC (02/04/2009) + +---------+ + + + | Component | Value | Ref Range | Performed | Pathologist | | | | | At | Signature | + +---------+ + + + | D DIMER, | 401 (A) | 230 ug/mL | [facility] | | | DIC | | | LAB - | | | | | | [place] | | + +---------+ + + + + + + + + | Performing | Address | City/State/Zipcode | Phone Number | | Organization | | | | + + + + + | [facility] - | [address] | [place], [place] | [phone] | | [place] | | | | + + + + + | [facility] - | | [place], [place] | | | [place] | | | | + + + + + C-REACT PRTN (FOR INFLAMMATION) (02/04/2009) + +-------+ + + + | Component | Value | Ref Range | Performed | Pathologist | | | | | At | Signature | + +-------+ + + + | C REACTIVE | 5 | 0 - 10 mg/dl | [facility] | | | PROTEIN - | | | LAB - | | | LIPID LAB | | | [place] | | + +-------+ + + + + + | Specimen | + + | Blood - Blood | + + + + + + + | Performing | Address | City/State/Zipcode | Phone Number | | Organization | | | | + + + + + | [facility] - | [address] | [place], [place] | [phone] | | [place] | | | | + + + + + | [facility] - | | [place], [place] | | | [place] | | | | + + + + + SEDIMENTATION RATE (02/04/2009) + +-------+ + + + | Component | Value | Ref Range | Performed | Pathologist | | | | | At | Signature | + +-------+ + + + | SEDIMENTATI | 1 | 0 - 20 mm/hr | [facility] | | | ON RATE | | | LAB - | | | | | | [place] | | + +-------+ + + + + + | Specimen | + + | Blood - Blood | + + + + + + + | Performing | Address | City/State/Zipcode | Phone Number | | Organization | | | | + + + + + | [facility] - | [address] | [place], [place] | [phone] | | [place] | | | | + + + + + | [facility] - | | [place], [place] | | | [place] | | | | + + + + + documented in this encounter Visit Diagnoses Not on filedocumented in this encounter"
--- OUTSIDE RECORDS SUMMARY | ~2020-05-04 | XMS | Encounter Summary ---
Demographics + + + | Address | [address] | | | [place] [address] | + + + | Home Phone [...] + | Gene Gee | ECON | [address] | | | | | [place], | | | | | [place] [address] | | + + + + + Care Team Providers + +------+ + | Care Blood Coordinator Name | Role | Phone | + +------+ + | Antony Ribera MD | PCP | | + +------+ + Reason for Visit + +--------+ + | Reason | Onset | Comments | | | Date | | + +--------+ + | Wound care | 03/25/ | | | | 2006 | | + +--------+ + Encounter Details +--------+ + + + + | Date | Type | Department | Care Team | Description | +--------+ + + + + | 03/25/ | Telephone | Surgical Oncology | Henri Heart, | Wound care | | 2006 | | at [facility] [address] | MD [address] | | | | | Ave [facility] | [place], [place] | | | | | Health and Healing, | [address] | | | | | [facility] | [phone] | | | | | [place], [place] | | | | | | [address] | | | | | | [phone] | | | +--------+ + + + [...] Miscellaneous Notes Telephone Encounter - Claribel Garza - 03/25/2007 11:47 AM PDTPatient given instructions r e drain care and arm mobility. Will see Dr. Heart in clinic on . Electronically si gned by Claribel Garza at 03/25/2007 11:47 AM PDTTelephone Encounter - Tamica Ness - 03/25/2007 10:11 AM PDTPt states redness around drain area. No fever or other symptoms. Pt also requests instructions on lifting her arm. documented in this encounter Plan of Treatment Not on filedocumented as of this encounter Visit Diagnoses Not on filedocumented in this encounter"
--- OUTSIDE RECORDS SUMMARY | ~2020-05-04 | XMS | Encounter Summary ---
Demographics + + + | Address | [address] | | | [place] [address] | + + + | Home Phone | | + + + | Preferred Language | Unknown | + + + | Marital Status | | + + + | Synagogue Affiliation | CHR | + + + | Race | White | + + + | Ethnic Group | Not or | + + + Author + + + | Author | [facility] | + + + | Organization | [facility] | + + + | Address | Unknown | + + + | Phone | Unavailable | + + + Support + + + + + | Name | Relationship | Address | Phone | + + + + + | Gene Gee | ECON | [address] | | | | | [place], | | | | | [place] [address] | | + + + + + Care Team Providers + +------+ + | Care Channel Installer Name | Role | Phone | + +------+ + | Antony Ribera MD | PCP | | + +------+ + Encounter Details +--------+ + + + + | Date | Type | Department | Care Team | Description | +--------+ + + + + | 10/29/ | Telephone | Cardiology General | Monique Middleton, | | | 2007 | | at [facility] [address] | [facility] | | | | | [facility] for | | | | | | Health and Healing, | | | | | | Building | | | | | | Floor [place], [place] | | | | | | [address] | | | | | | [phone] | | | +--------+ + + + [...] Telephone Encounter - Monique Middleton Np - 10/30/2007 10:33 AM SANTANAShe called because she bhakta d an episode yesterday that was different--got up and suddenly felt her heart racing, was sl ightly lightheaded, lasted 5 minutes and then stopped. She took extra atenolol but will go back to usual dose. She will call if more episodes like this. documented in this encounter Plan of Treatment Not on filedocumented as of this encounter Visit Diagnoses Not on filedocumented in this encounter"
--- OUTSIDE RECORDS SUMMARY | ~2020-05-04 | XMS | Encounter Summary ---
Demographics + + + | Address | [address] | | | [place] [address] | + + + | Home Phone [...] + | Gene Sahil | ECON | [address] | | | | | [place], | | | | | [place] [address] | | + + + + + Care Team Providers + +------+ + | Care Caterpillar Driver Name | Role | Phone | + +------+ + | Antony Ribera MD | PCP | | + +------+ + Encounter Details +--------+ + + + + | Date | Type | Department | Care Team | Description | +--------+ + + + + | 03/20/ | Discharge | UNKNOWN DEPARTMENT | Summary, Discharge | D/C Summary ODDS | | 2006 | Summary-Tra | [address] | | | | | nscribed | [address] | | | | | | [place], [place] | | | | | | [address] | | | +--------+ + + + [...] + + documented as of this encounter Discharge Summaries Interface, Accounts Receivable Manager In - 06/13/2007 2:26 AM PST [id number] SAHIL Holman [id number] Admission Date: 03/19/2007 Discharge Date: 03/20/2007 Staff Physician: [facility] M.D. Principal Final Diagnosis: Right invasive ductal carcinoma. Principal Procedure: Right mastectomy with 7 lymph node biopsies sentinel. Reason for Admission: Removal of the right breast and sentinel node biopsy. Hospital Course: Ms. 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 She was admitted on March 19, 2007, for right total mastectomy and sentinel lymph node biopsy. Her surgery was uncomplicated. She was able to ambulate, void, tolerate p.o. medications, and regular diet by postop day #1 at which time she was discharged to home to follow up in clinic. Condition on Discharge: Stable. Discharge Medication(s): 1. Vicodin 500/5 one to two tablets p.o. q.4-6 h. p.r.n. pain. 2. Colace 100 mg one p.o. b.i.d. hold for loose stools. 3. Atenolol 25 mg one p.o. q. day. 4. Ezetimibe 10 mg one p.o. q. day. 5. Fluoxetine 20 mg one p.o. q. day. 6. Vitamin A, C, E. one p.o. q. day with food. 7. Glucosamine 1000 mg one p.o. q. day. 8. DHEA OR 5 mg one p.o. q. day. 9. Lipotropics one p.o. q. day. 10. Amino acids 600 mg one p.o. q. day. 11. Flovent 220 mg two puffs inhaled b.i.d. 12. Spiriva 2 puffs inhaled q.a.m. 13. Tylenol 325 two tablets p.o. q.4-6 h. p.r.n. pain. Discharge Instruction(s): 1. Diet: Regular. 2. Activity: As tolerated. 3. Two TIMOTHY drains in place with TIMOTHY care training. 4. The patient is to follow up in [facility] in 1 week for removal of her TIMOTHY drains. Devi Brody M.D. [facility] M.D. [facility] / [id number] / [id number] / [id number] / Reviewed or Edited By Devi Brody M.D. on 03-26-2007 Electronically signed by Henri Heart 06-12-2007 11:39:55 AM documented in this encounter Plan of Treatment Not on filedocumented as of this encounter Visit Diagnoses Not on filedocumented in this encounter"
--- OUTSIDE RECORDS SUMMARY | ~2020-05-04 | XMS | Encounter Summary ---
Demographics + + + | Address | [address] | | | [place] [address] | + + + | Home Phone | | + + + | Preferred Language | Unknown | + + + | Marital Status | | + + + | Catholic Affiliation | CHR | + + [...] + | Gene Sahil | ECON | [address] | | | | | [place], | | | | | [place] [address] | | + + + + + Care Team Providers + +------+ + | Care Fee Clerk Name | Role | Phone | + +------+ + PCP | Unavailable | + +------+ + Encounter Details +--------+ + + + + | Date | Type | Department | Care Team | Description | +--------+ + + + + | 06/08/ | [facility] | | Letter, Clinic | Letters | | 2004 | scribed | | | | +--------+ + + [...] as of this encounter Progress Notes Interface, Casino Manager In - 02/12/2005 8:49 AM PDT [id number] 06/08/2004 06/08/2004 [id number] SAHIL Holman [address] [place] [address] or June 08, 2004 Dilip Frias M.D. [address] [place] [id number] RE: ADRIANA BAXTER MR #: [id number] Dear Dr. Frias: I had the pleasure of seeing Adriana Baxter in the [facility] Hepatology Clinic today along with Bob Reyna M.D. Below you will find my initial history, physical examination, assessment, and recommendations. Referred By: Dr. Frias. Reason for Consultation: History of right upper quadrant pain and hepatic cysts. Identification: A 58-year-old female. History of Present Illness: Adriana Baxter is accompanied to clinic by her today who helps provide the history. Mrs. Baxter was diagnosed with liver cyst in 1998 when they were noted incidentally on a right upper quadrant ultrasound prior to cholecystectomy. These were not a problem for the patient until late March 2004, at which time she had the acute onset of severe right upper quadrant abdominal pain radiating to her right shoulder while driving home to [place], [place], from [facility]. This severe pain persisted at a level of 10 on a pain scale of 0 to 10 for several hours and led to her being evaluated in the Emergency Department near her home. She had computed tomography scan of the abdomen on April 11, 2004, via the Emergency Department which showed her to be status post left hemicolectomy (for diverticulitis), with numerous large hepatic cysts. The largest was in the right hepatic lobe and measured 9.3 x 12.2 cm. This large cyst was previously 9.5 x 7 cm on imaging. The patient gradually got better until April 30, 2004, at which time she again had an episode of acute right upper quadrant pain which led to her evaluation and eventual admission to the hospital. Again, CT scan of the abdomen showed no change in the size from previous imaging on April 11, 2004, but there was a question of hemorrhage into the large cyst. The patient was admitted to the hospital and was noted to have an elevated bilirubin of 1.3 with normal aminotransferases on hospital day #1. On hospital day #2, May 01, 2004, her bilirubin had normalized, but her AST tariq to 66 and ALT to 67. Prior to discharge on May 02, 2004, hospital day #3, her bilirubin had normalized, and her aminotransferases had declined to essentially normal as well. Since that time, she has had repeat CT scan of the abdomen on May 11, 2004, which again showed the approximately 9.7 x 12-cm dominant cyst in the dome of the right lobe of the liver. There was no change in the size in comparison to the CT scan from April 30, 2004, essentially. However, there was probable hematoma within the cyst. The other cysts were also stable in size. There had been no mention of renal cyst on any of these computed tomography scans. The patient reports that her pain has been increasing again over the past week, coinciding with increased activity level at her home. She has not had severe acute increase, but the pain continues to be rather associated with movement and somewhat pleuritic. She is not having any fevers or chills, no nausea or vomiting. No evidence of gastrointestinal blood loss, no dizziness or loss of consciousness. The patient has been seen by a data reviewer as well as a surgeon, Dr. Prince, in her home town at [place], [place], for this problem. The consensus was that she should be referred to [facility] for further care. Past Medical History 1. Ectopic at the age of 20 years. 2. Status post appendectomy at the age of 25 years. 3. Status post adhesiolysis. 4. Endometriosis status post hysterectomy at the age of 46. 5. Bladder suspension at the age of 51 years. 6. Diverticulitis, status post colon resection for the same (right hemicolectomy) in 2002. 7. Status post cholecystectomy in 2002. 8. Status post surgical hernia repair in 2003. 9. History of liver cyst, see the HPI. 10. Carpal tunnel syndrome status post release on the left. 11. Status post sinus surgery approximately 12 years ago. 12. Status post hemorrhoid surgery 12 to 15 years ago. 13. History of fibroid cyst in the breast since 33 years of age. 14. Sjogren's syndrome, diagnosed in 1995. 15. Fibromyalgia, diagnosed in 1995. 16. Mitral valve prolapse. 17. Gastroesophageal reflux disease. 18. Asthma. 19. Temporomandibular joint disease. 20. Fibrocystic breast disease. 21. Diverticulitis. 22. Skin cancers on the back. 23. Esophageal dysmotility. Allergies: CIPRO, WHICH CAUSES A RASH. SULFA DRUGS WHICH CAUSE SWELLING. THIAZIDE DIURETICS WHICH CAUSE BREAST LUMPS. Medications 1. Estrace 75-mg patch. 2. Protonix 40 mg p.o. daily. 3. Atenolol 50 mg p.o. daily. 4. Metered-dose inhalers (Combivent, Serevent, Pulmicort). 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 She is . No tobacco, rare alcohol use, no drug use. Family History: No liver disease. Physical Examination: General: No apparent distress. Vital Signs: Afebrile, blood pressure 136/90, heart rate 64 and regular, respiratory rate 16, weight 137 pounds, and height 5 feet 6 inches. HEENT: Sclerae anicteric; conjunctiva pink; pupils equal, round, and reactive to light; oropharynx moist. Neck: No lymphadenopathy, jugular venous distention, or thyroid disorder. Lungs: Clear to auscultation bilaterally. Cardiovascular: Regular rate and rhythm. Abdomen: Bowel sounds present, soft, no audible bruit, tenderness to palpation over the right upper quadrant. Liver edge palpated approximately 3 cm below the right costal margin. No spleen tip appreciated. No rebound or guarding. Skin: No jaundice or spider angiomata. Laboratory Data: From April 30, 2004, chemistry panel within normal limits. Complete blood count within normal limits. Total bilirubin 1.3, AST 34, ALT 35, alkaline phosphatase 102, albumin 3.8, and amylase 39. From May 01, 2004, total bilirubin 0.9, AST 66, ALT 67, alkaline phosphatase 96. From May 02, 2004, total bilirubin 0.4, alkaline phosphatase 91, AST 42, ALT 52. Imaging: Refer to the history of the present illness. Assessment/Recommendations: Adriana Baxter is a 58-year-old female with a history of right upper quadrant abdominal pain for approximately 6 to 8 weeks' duration. This pain is likely due to multiple hepatic cysts with hemorrhage into a large cyst in the dome of the right lobe of the liver. The natural history of large hepatic cysts is such that hemorrhage is a potential complication. I suspect that the pain she is currently feeling is due to surrounding edema and capsular stretch. As she reabsorbs the blood and inflammation improves, I would suspect her pain should improve also. However, she is counseled to seek cure immediately for any acute increase in the abdominal pain. At this time, I feel that she should maintain a very minimal activity level and only gradually increase her activity level. I would like to refer this patient to our hepatobiliary surgeons to seek their opinion as to whether surgery would be appropriate. Other potential therapeutic maneuver would include radiology-guided drainage of the cyst. However, my concern is that the dominant cyst is too large for successful percutaneous drainage. Therefore, I will first refer to the surgeons for a potential definitive therapy (i.e., surgery). If their opinion is such that radiology-guided drainage should be attempted first, we will arrange for a followup in our Radiology Department. Additionally, today, I will obtain lab work to include a complete metabolic panel, CBC, and INR. This patient was discussed with Bob Reyna M.D., who agrees with the above assessment and plan. Sincerely, Dilip Cortes M.D. [facility] Gastroenterology and Hepatology Fellow Bob Reyna M.D. / [id number] / [id number] / [id number] / cc: Saman Ribera M.D. [address] [place] [address] documented i n this encounter Plan of Treatment Not on filedocumented as of this encounter Visit Diagnoses Not on filedocumented in this encounter"
--- OUTSIDE RECORDS SUMMARY | ~2020-05-04 | XMS | Encounter Summary ---
Demographics + + + | Address | [address] | | | [place] [address] | + + + | Home Phone | | + + + | Preferred Language | Unknown | + + + | Marital Status | | + + + | Episcopal Affiliation | [id number] | + + + | Race | White | + + + | Ethnic Group | Not or | + + + Author + + + | Author | [facility] | | | and [place] | + + + | Organization | [facility] | | [...] Team Providers + +------+ + | Care Billiard Table Assembler Name | Role | Phone | + +------+ + | Alec Hill MD | PCP | | + +------+ + Encounter Details +--------+ + + + + | Date | Type | Department | Care Team | Description | +--------+ + + + + | 07/19/ | Orders Only | [facility] | Antony Ribera | | | 2018 | | CONVERSION [address] | MD [address] | | | | | BRIANDA SINGLETON | [address] | | | | | [place] | [place] | | | | | [address] | [address] | | | | | [phone] | [phone] | | | | | | | [...] | | | | | | [place] [address] | | | | | | [phone] | | | | | | | | +--------+ + + + + | 05/19/ | Appointment | Cardiology | Martin Kelley, | | | 2019 | | | MD [address] | | | | | | [place], | | | | | | [place] [address] | | | | | | [phone] | | | | | | | | +--------+ + + + + | 11/26/ | Office | Cardiology | Martin Kelley, | | | 2020 | Visit | | MD [address] | | | | | | [place], | | | | | | [place] [address] | | | | | | [phone] | | | | | | | | +--------+ + + + + documented as of this encounter Procedures + +--------+ + + + | Procedure Name | Priori | Date/Time | Associated Diagnosis | Comments | | | ty | | | | + +--------+ + + + | ECHO INTERPRETATION | Routin | 07/19/2017 | | Results for this | | OF OUTSIDE FILMS | e | 2:51 PM | | procedure are in the | | | | PST | | results section. | + +--------+ + + + documented in this encounter Results ECHO Interpretation of Outside Films (07/19/2017 2:51 PM PST) + + | Specimen | + + | | + + + + + | Impressions | Performed At | + + + | 1. Atrial fibrillation with rapid ventricular response. 2. The left | | | ventricle is normal in size, wall thickness and systolic function EF | | | 55%. 3. The right ventricle is normal in size and function. 4. | | | Moderate mitral regurgitation and moderately enlarged left atrium. 5. | | | Moderate tricuspid regurgitation with no pulmonary hypertension. 6. | | | There is no pericardial effusion. | | + + + + + + | Narrative | Performed At | + + + | Patient Name: Adriana Flynn Date of : 1945 | | | Performing Physician: Edwige Eugene | | | | | | INDICATIONS A.FIB, CHF CONCLUSIONS 1. | | | Atrial fibrillation with rapid ventricular response. 2. The left | | | ventricle is normal in size, wall thickness and systolic function EF | | | 55%. 3. The right ventricle is normal in size and function. 4. | | | Moderate mitral regurgitation and moderately enlarged left atrium. 5. | | | Moderate tricuspid regurgitation with no pulmonary hypertension. 6. | | | There is no pericardial effusion. FINDINGS -------- ECG rhythm: | | | Atrial fibrillation. ECG rhythm: Resting tachycardia (HR>100bpm). | | | Study: A 2-dimensional transthoracic echocardiogram with m-mode, | | | spectral and color flow Doppler was perfomed. Study: This was a | | | technically adequate study. Left Ventricle: Overall left ventricular | | | systolic function is low-normal with, an EF between 50 - 55 %. Left | | | Ventricle: The left ventricle cavity size is normal. Left Ventricle: | | | Left ventricular wall thickness is normal. Left Ventricle: No | | | regional wall motion abnormalities. Left Ventricle: Cannot assess | | | diastolic function due to tachycardia. Right Ventricle: The right | | | ventricle is normal in size and function. Left Atrium: The left | | | atrium is moderately dilated. Right Atrium: The right atrium is | | | mildly enlarged. Aortic Valve: Aortic valve is trileaflet. Aortic | | | Valve: There is no evidence of aortic regurgitation. Aortic Valve: | | | There is no evidence of aortic stenosis. Mitral Valve: The mitral | | | valve is normal. Mitral Valve: Moderate mitral regurgitation is | | | present. Tricuspid Valve: The tricuspid valve appears structurally | | | normal. Tricuspid Valve: Moderate tricuspid regurgitation present. | | | Tricuspid Valve: There is no evidence of significant pulmonary | | | hypertension. Tricuspid Valve: The right ventricular systolic | | | pressure (pulmonary artery systolic pressure), as measured by Doppler, | | | is 34.69mmHg. Tricuspid Valve: The poor TR signal prevents accurate | | | estimation of pulmonary pressures. Pulmonic Valve: The pulmonic valve | | | is normal. Pulmonic Valve: Mild pulmonic regurgitation. | | | Pericardium: There is no pericardial effusion. Pericardium: No | | | pleural effusion seen. IVC/Hepatic Veins: The IVC is normal size | | | (1.5-2.5cm) and collapses >50% with sniff, consistent with central | | | venous pressures of 5-10mmHg. Aorta: The aortic root, ascending aorta | | | and aortic arch are normal in size. MEASUREMENTS | | | RA Area: 17.15 cm2 Ao asc: 3.05 cm Ao Diam: 3.10 cm Ao | | | sinus: 3.[address] junct: 2.67 cm IVC: 2.37 cm LA Diam: | | | 4.05 cm LA Major: 5.04 cm EDV(Teich): 72.42 ml IVSd: | | | 0.89 cm LVIDd: 4.05 cm LVPWd: 0.87 cm LVOT Area: 3.15 cm2 | | | LVOT Diam: 2.00 cm %FS: 26.98 % EF(Teich): 53.13 % | | | ESV(Teich): 33.94 ml LVIDs: 2.96 cm SV(Teich): 38.47 ml RA | | | Major: 4.91 cm RV Major: 5.55 cm RVIDd: 2.80 cm LVEF MOD | | | A2C: 48.51 % SV MOD A2C: 16.20 ml LVEF MOD A4C: 55.95 % SV | | | MOD A4C: 24.47 ml EF Biplane: 52.52 % LVEDV MOD BP: 38.31 | | | ml LVESV MOD BP: 18.19 ml LVEDV MOD A2C: 33.40 ml LVLd A2C: | | | 5.80 cm LVEDV MOD A4C: 43.74 ml LVLd A4C: 5.76 cm LVESV | | | MOD A2C: 17.19 ml LVLs A2C: 5.35 cm LVESV MOD A4C: 19.26 ml | | | LVLs A4C: 5.37 cm LAESV(A-L): 73.41 ml LAESV Index (A-L): | | | 40.33 ml/m2 LAAs A2C: 19.27 cm2 LAESV A-L A2C: 61.56 ml LALs | | | A2C: 5.17 cm LAAs A4C: 23.23 cm2 LAESV A-L A4C: 80.83 ml | | | LALs A4C: 5.67 cm RAAs: 16.57 cm2 RAESV A-L: 47.22 ml | | | RAESV MOD: 47.84 ml RALs: 4.94 cm TAPSE: 1.68 cm AV maxPG: | | | 2.55 mmHg AV meanP.35 mmHg AV Vmax: 0.79 m/s AV | | | Vmean: 0.54 m/s AV VTI: 11.94 cm BETH Vmax: 2.49 cm2 BETH | | | (VTI): 2.44 cm2 AVAI Vmax: 0.00 cm2/m2 AVAI (VTI): 0.00 | | | cm2/m2 LVOT maxP.60 mmHg LVOT meanP.81 mmHg LVSI | | | Dopp: 16.03 ml/m2 LVSV Dopp: 29.18 ml LVOT Vmax: 0.63 m/s | | | LVOT Vmean: 0.43 m/s LVOT VTI: 9.25 cm MV A Michael: 0.03 m/s | | | MV DecT: 134.26 ms MV E Michael: 0.97 m/s MV E/A Ratio: 31.6 | | | MV PHT: 38.93 ms MVA By PHT: 5.65 cm2 Septal e': 0.08 m/s | | | Septal E/e': 11.40 Lateral e': 0.07 m/s Lateral E/e': 13.78 | | | RAP: 5 mmHg RVSP: 34.69 mmHg TR maxP.69 mmHg TR | | | Vmax: 2.72 m/s Director Labor Standards: Authenticated by: Edwige Eugene | | | Report Date/Time: 07-19-2017 16:56:46 | | + + + + + | Procedure Note | + + | Gerard Rad Conversion - 03/06/2019 5:18 PM PDT Patient Name: Amy Flynn of | | : 1945 Performing Physician: Edwige | | Jabier INDICATIONS------ | | -----A.FIB, CHF CONCLUSIONS 1. Atrial fibrillation with rapid ventricular | | response.2. The left ventricle is normal in size, wall thickness and systolic function | | EF 55%.3. The right ventricle is normal in size and function.4. Moderate mitral | | regurgitation and moderately enlarged left atrium.5. Moderate tricuspid regurgitation | | with no pulmonary hypertension.6. There is no pericardial effusion. FINDINGS--------ECG | | rhythm: Atrial fibrillation.ECG rhythm: Resting tachycardia (HR>100bpm).Study: A | | 2-dimensional transthoracic echocardiogram with m-mode, spectral and color flow Doppler | | was perfomed.Study: This was a technically adequate study.Left Ventricle: Overall left | | ventricular systolic function is low-normal with, an EF between 50 - 55 %.Left | | Ventricle: The left ventricle cavity size is normal.Left Ventricle: Left ventricular | | wall thickness is normal.Left Ventricle: No regional wall motion abnormalities.Left | | Ventricle: Cannot assess diastolic function due to tachycardia.Right Ventricle: The | | right ventricle is normal in size and function.Left Atrium: The left atrium is | | moderately dilated.Right Atrium: The right atrium is mildly enlarged.Aortic Valve: | | Aortic valve is trileaflet.Aortic Valve: There is no evidence of aortic | | regurgitation.Aortic Valve: There is no evidence of aortic stenosis.Mitral Valve: The | | mitral valve is normal.Mitral Valve: Moderate mitral regurgitation is present.Tricuspid | | Valve: The tricuspid valve appears structurally normal.Tricuspid Valve: Moderate | | tricuspid regurgitation present.Tricuspid Valve: There is no evidence of significant | | pulmonary hypertension.Tricuspid Valve: The right ventricular systolic pressure | | (pulmonary artery systolic pressure), as measured by Doppler, is 34.69mmHg.Tricuspid | | Valve: The poor TR signal prevents accurate estimation of pulmonary pressures.Pulmonic | | Valve: The pulmonic valve is normal.Pulmonic Valve: Mild pulmonic | | regurgitation.Pericardium: There is no pericardial effusion.Pericardium: No pleural | | effusion seen.IVC/Hepatic Veins: The IVC is normal size (1.5-2.5cm) and collapses >50% | | with sniff, consistent with central venous pressures of 5-10mmHg.Aorta: The aortic root, | | ascending aorta and aortic arch are normal in size. MEASUREMENTS RA Area: | | 17.15 cm2Ao asc: 3.05 cmAo Diam: 3.10 cmAo sinus: 3.[address] junct: 2.67 | | cmIVC: 2.37 cmLA Diam: 4.05 cmLA Major: 5.04 cmEDV(Teich): 72.42 mlIVSd: 0.89 | | cmLVIDd: 4.05 cmLVPWd: 0.87 cmLVOT Area: 3.15 [id number] Diam: 2.00 cm%FS: 26.98 | | %EF(Teich): 53.13 %ESV(Teich): 33.94 mlLVIDs: 2.96 cmSV(Teich): 38.47 mlRA | | Major: 4.91 cmRV Major: 5.55 cmRVIDd: 2.80 cmLVEF MOD A2C: 48.51 %SV MOD A2C: | | 16.20 mlLVEF MOD A4C: 55.95 %SV MOD A4C: 24.47 mlEF Biplane: 52.52 %LVEDV MOD BP: | | 38.31 mlLVESV MOD BP: 18.19 mlLVEDV MOD A2C: 33.40 mlLVLd A2C: 5.80 cmLVEDV MOD | | A4C: 43.74 mlLVLd A4C: 5.76 cmLVESV MOD A2C: 17.19 mlLVLs A2C: 5.35 cmLVESV MOD | | A4C: 19.26 mlLVLs A4C: 5.37 cmLAESV(A-L): 73.41 mlLAESV Index (A-L): 40.33 | | ml/m2LAAs A2C: 19.27 [id number] A-L A2C: 61.56 mlLALs A2C: 5.17 cmLAAs A4C: 23.23 | | [id number] A-L A4C: 80.83 mlLALs A4C: 5.67 cmRAAs: 16.57 [id number] A-L: 47.22 | | mlRAESV MOD: 47.84 mlRALs: 4.94 cmTAPSE: 1.68 cmAV maxP.55 mmHgAV meanPG: | | 1.35 mmHgAV Vmax: 0.79 m/Adalid Vmean: 0.54 m/Adalid VTI: 11.94 cmAVA Vmax: 2.49 | | cm2AVA (VTI): 2.44 [id number] Vmax: 0.00 cm2/m2AVAI (VTI): 0.00 cm2/m2LVOT maxPG: | | 1.60 mmHgLVOT meanP.81 mmHgLVSI Dopp: 16.03 ml/m2LVSV Dopp: 29.18 mlLVOT Vmax: | | 0.63 m/sLVOT Vmean: 0.43 m/sLVOT VTI: 9.25 cmMV A Michael: 0.03 m/sMV DecT: | | 134.26 msMV E Michael: 0.97 m/sMV E/A Ratio: 31.6MV PHT: 38.93 msMVA By PHT: 5.65 | | xy6Kinxtk e': 0.08 m/sSeptal E/e': 11.40Lateral e': 0.07 m/sLateral E/e': | | 13.78RAP: 5 mmHgRVSP: 34.69 mmHgTR maxP.69 mmHgTR Vmax: 2.72 m/s | | Director Labor Standards:Authenticated by: Edwige Sweeney Date/Time: 07-19-2017 16:56:46 | | IMPRESSION: 1. Atrial fibrillation with rapid ventricular response.2. The left ventricle | | is normal in size, wall thickness and systolic function EF 55%.3. The right ventricle | | is normal in size and function.4. Moderate mitral regurgitation and moderately enlarged | | left atrium.5. Moderate tricuspid regurgitation with no pulmonary hypertension.6. There | | is no pericardial effusion. | |Ao asc: 3.05 cm | |Ao Diam: 3.10 cm | |Ao sinus: 3.25 cm | |Ao st junct: 2.67 cm | |IVC: 2.37 cm | |LA Diam: 4.05 cm | |LA Major: 5.04 cm | |EDV(Teich): 72.42 ml | |IVSd: 0.89 cm | |LVIDd: 4.05 cm | |LVPWd: 0.87 cm | |LVOT Area: 3.15 cm2 | |LVOT Diam: 2.00 cm | |%FS: 26.98 % | |EF(Teich): 53.13 % | |ESV(Teich): 33.94 ml | |LVIDs: 2.96 cm | |SV(Teich): 38.47 ml | |RA Major: 4.91 cm | |RV Major: 5.55 cm | |RVIDd: 2.80 cm | |LVEF MOD A2C: 48.51 % | |SV MOD A2C: 16.20 ml | |LVEF MOD A4C: 55.95 % | |SV MOD A4C: 24.47 ml | |EF Biplane: 52.52 % | |LVEDV MOD BP: 38.31 ml | |LVESV MOD BP: 18.19 ml | |LVEDV MOD A2C: 33.40 ml | |LVLd A2C: 5.80 cm | |LVEDV MOD A4C: 43.74 ml | |LVLd A4C: 5.76 cm | |LVESV MOD A2C: 17.19 ml | |LVLs A2C: 5.35 cm | |LVESV MOD A4C: 19.26 ml | |LVLs A4C: 5.37 cm | |LAESV(A-L): 73.41 ml | |LAESV Index (A-L): 40.33 ml/m2 | |LAAs A2C: 19.27 cm2 | |LAESV A-L A2C: 61.56 ml | |LALs A2C: 5.17 cm | |LAAs A4C: 23.23 cm2 | |LAESV A-L A4C: 80.83 ml | |LALs A4C: 5.67 cm | |RAAs: 16.57 cm2 | |RAESV A-L: 47.22 ml | |RAESV MOD: 47.84 ml | |RALs: 4.94 cm | |TAPSE: 1.68 cm | |AV maxP.55 mmHg | |AV meanP.35 mmHg | |AV Vmax: 0.79 m/s | |AV Vmean: 0.54 m/s | |AV VTI: 11.94 cm | |BETH Vmax: 2.49 cm2 | |BETH (VTI): 2.44 cm2 | |AVAI Vmax: 0.00 cm2/m2 | |AVAI (VTI): 0.00 cm2/m2 | |LVOT maxP.60 mmHg | |LVOT meanP.81 mmHg | |LVSI Dopp: 16.03 ml/m2 | |LVSV Dopp: 29.18 ml | |LVOT Vmax: 0.63 m/s | |LVOT Vmean: 0.43 m/s | |LVOT VTI: 9.25 cm | |MV A Michael: 0.03 m/s | |MV DecT: 134.26 ms | |MV E Michael: 0.97 m/s | |MV E/A Ratio: 31.6 | |MV PHT: 38.93 ms | |MVA By PHT: 5.65 cm2 | |Septal e': 0.08 m/s | |Septal E/e': 11.40 | |Lateral e': 0.07 m/s | |Lateral E/e': 13.78 | |RAP: 5 mmHg | |RVSP: 34.69 mmHg | |TR maxP.69 mmHg | |TR Vmax: 2.72 m/s | | | |Director Labor Standards: | |Authenticated by: Edwige Eugene | |Report Date/Time: 07-19-2017 16:56:46 | | | |IMPRESSION: | |1. Atrial fibrillation with rapid ventricular response. | |2. The left ventricle is normal in size, wall thickness and systolic function EF 55%. | |3. The right ventricle is normal in size and function. | |4. Moderate mitral regurgitation and moderately enlarged left atrium. | |5. Moderate tricuspid regurgitation with no pulmonary hypertension. | |6. There is no pericardial effusion. | + + documented in this encounter Visit Diagnoses Not on filedocumented in this encounter"
--- OUTSIDE RECORDS SUMMARY | ~2020-05-04 | XMS | Encounter Summary ---
Demographics + + + | Address | [address] | | | [place] [address] | + + + | Home Phone [...] + | Gene Gee | ECON | [address] | | | | | [place], | | | | | [place] [address] | | + + + + + Care Team Providers + +------+ + | Care Tow Boat Captain Name | Role | Phone | + +------+ + | Alec Hill MD | PCP | | + +------+ + Reason for Visit Benefits Check (Routine) + +--------+ + + + + | Status | Reason | Specialty | Diagnoses / | Referred By | Referred To | | | | | Procedures | Contact | Contact | + +--------+ + + + + | Authorized | | Surgical | | Non-[facility] | [facility] | | | | Oncology | | Epic Dept | MD Luís | | | | | | | [address] | | | | | | | [address] | | | | | | | [place], [place] | | | | | | | [address] | | | | | | | Phone: | | | | | | | [phone] | | | | | | | Fax: | | | | | | | [phone] | + +--------+ + + + + Encounter Details +--------+---------+ + + + | Date | Type | Department | Care Team | Description | +--------+---------+ + + + | 12/16/ | Office | Surgical Oncology | Luís Heart, | Malignant neoplasm | | 2019 | Visit | at [facility] [address] | MD [address] | of right female | | | | [facility] | [place], [place] | breast, unspecified | | | | Health and Healing, | [address] | estrogen receptor | | | | Building [address] | [phone] | status, unspecified | | | | [place], [place] | | site of breast (HCC) | | | | [address] | | (Primary Dx) | | | | [phone] | | | +--------+---------+ + + + [...] + + + | Blood Pressure | 129/67 | 12/16/2018 12:48 PM | | | | | PDT | | + + + + + | Pulse | 68 | 12/16/2018 12:48 PM | | | | | PDT | | + + + + + | Temperature | 36.5 C (97.7 F) | 12/16/2018 12:48 PM | | | | | PDT | | + + + + + | Respiratory Rate | 14 | 12/16/2018 12:48 PM | | | | | PDT | | + + + + + | Oxygen Saturation | 99% | 12/16/2018 12:48 PM | | | | | PDT | | + + + + + | Inhaled Oxygen | - | - | | | Concentration | | | | + + + + + | Weight | 65.5 kg (144 lb 6.4 | 12/16/2018 12:48 PM | | | | oz) | PDT | | + + + + + | Height | - | - | | + + + + + | Body Mass Index | 23.91 | 11/27/2018 10:20 AM | | | | | PDT | | + + + + + documented in this encounter Progress Notes Luís Heart MD - 12/16/2018 12:30 PM PDTSurgical Oncology Clinic Note [facility] Service 12/16/18 Adriana is here for follow up of her right breast cancer treated with mastectomy, axillary di ssection, chemotherapy in 2006. She has had Reclast IV infusions for osteoporosis. Cardiac and pulmonary health have been s table, her asthma flares but this is controllable. There were no vitals taken for this visit. Gen: WD/WN in NAD. Not jaundiced. HEENT: PERRLA. EOMI. Sclerae non-icteric. Neck: No cervical or supraclavicular lymphadenopathy. Lungs: Clear to auscultation and percussion bilaterally with 2cm diaphragmatic excursions b ilaterally. Car: RRR without S3, or murmurs. Breast exam: The Left breast has an everted nipple. She has a right mastectomy with implant and nipple areolar reconstruction.There is no obvious skin change, dimpling, or mass. Palpa tion of the breast did not reveal any dominant masses. There was no nipple discharge. There was no axillary lymphadenopathy. Palpation of the mastectomy scars and flaps did not reveal any suspicious areas, changes or masses. There was no axillary lymphadenopathy. Abd: Non-distended. No obvious mass. Normal BS. No bruits. Soft, non-tender. The liver is n ot palpable. The spleen is not palpable. The liver span is 6 cm to percussion in the right mid-clavicular line. There is no palpable abdominal mass. There is no Sr. Katty Hamlin's nod ule. There is no inguinal lymphadenopathy. Extr: Without clubbing, cyanosis, or edema. Neuro: CN II-XII grossly intact. Motor and sensory exam grossly normal throughout. Mammograms were reviewed today of the left breast and they are negative. Assessment: History of carcinoma of the right breast. The patient currently has no evidence of disease. She is now 73 years old, so I discussed stopping mammography on her left breast and only continuing CBE. She is very comfortable with this plan. Plan: RTC in 1 year for CBE. I, Jane Brown, am functioning as a scribe for Dr. Luís Heart MD. I have reviewed and verified the above scribed note of my visit with this patient as record ed by Jane Brown. LUÍS HEART MD gas plant operator Division of Surgical Oncology [id number] [place], [place] [address] documented in this en counter Plan of Treatment Not on filedocumented as of this encounter Visit Diagnoses + + | Diagnosis | + + | Malignant neoplasm of right female breast, unspecified estrogen receptor status, | | unspecified site of breast (HCC) - Primary | + + documented in this encounter"
--- OUTSIDE RECORDS SUMMARY | ~2020-05-04 | XMS | Encounter Summary ---
Demographics + + + | Address | [address] | | | [place] [address] | + + + | Home Phone | | + + + | Preferred Language | Unknown | + + + | Marital Status | | + + + | Moravian Affiliation | CHR | + + + [...] + | Gene Gee | ECON | [address] | | | | | [place], | | | | | [place] [address] | | + + + + + Care Team Providers + +------+ + | Care Decal Transferrer Name | Role | Phone | + +------+ + | Antony Ribera MD | PCP | | + +------+ + Encounter Details +--------+ + + + + | Date | Type | Department | Care Team | Description | +--------+ + + + + | 12/17/ | Telephone | Cardiology General | Monique Middleton, | | | 2007 | | at [facility] [address] | [facility] | | | | | [facility] [place] [facility] | | | | | | Health and Healing, | | | | | | Building | | | | | | Floor [place], [place] | | | | | | [address] | | | | | | [phone] | | | +--------+ + + + [...] Telephone Encounter - Monique Middleton Np - 12/18/2007 3:14 PM PDTAgrees to dofetilide--rere hughes plan for admission on SunDecember 29 at 2pm. She will take her moricizine through Sunday and have nothing on December 27 and .Electronically signed by Monique Middleton Np at 2007 3:23 PM PDTdocumented in this encounter Plan of Treatment Not on filedocumented as of this encounter Visit Diagnoses Not on filedocumented in this encounter"
--- OUTSIDE RECORDS SUMMARY | ~2020-05-04 | XMS | Encounter Summary ---
Demographics + + + | Address | [address] | | | [place] [address] | + + + | Home Phone | | + + + | Preferred Language | Unknown | + + + | Marital Status | | + + + | Restorationist Affiliation | CHR | + + + | Race | White | + + + | Ethnic Group | Not or | + + + Author + + + | Author | [facility] | + + + | Organization | [facility] | + + + | Address | Unknown | + + + | Phone | Unavailable | + + + Support + + + + + | Name | Relationship | Address | Phone | + + + + + | Gene Gee | ECON | [address] | | | | | [place], | | | | | [place] [address] | | + + + + + Care Team Providers + +------+ + | Care Information Receptionist Name | Role | Phone | + +------+ + | Antony Ribera MD | PCP | | + +------+ + Reason for Referral Consultation (Urgent) +--------+--------+ + + + + | Status | Reason | Specialty | Diagnoses / | Referred By | Referred To | | | | | Procedures | Contact | Contact | +--------+--------+ + + + + | Closed | | Obstetrics & | Diagnoses | Marcus | Sandro | | | | Gynecology | Malignant | Stevan Razo, | MD Ayanna | | | | | neoplasm of | [address] | | | | | breast | [address] | Anthony Lipscomb | | | | | (female), | [place], [place] | Rd [place], | | | | | unspecified | [address] | [place] | | | | | site | Phone: | [phone] | | | | | Procedures | [phone] | Phone: | | | | | CONSULT TO | Fax: | [phone] | | | | | [facility] | [phone] | Fax: | | | | | FOR WOMEN'S | | [phone] | | | | | HEALTH | | | +--------+--------+ + + + + Reason for Visit + + + | Reason | Comments | + + + | Breast cancer | | + + + | Follow-up encounter | | + + + | Treatment Planning | | + + + Encounter Details +--------+---------+ + + + | Date | Type | Department | Care Team | Description | +--------+---------+ + + + | 11/22/ | Office | Hematology/Medical | Stevan Velazquez, | Malignant neoplasm | | 2011 | Visit | Oncology at [facility] | MD [address] | of breast (female), | | | | [address] | [facility] [place] | unspecified site | | | | Mailcode: [facility] | [address] | (Primary Dx) | | | | [facility] | [phone] | | | | | and Healing, | | | | | | [facility] | | | | | | Floor [place], [place] | | | | | | [address] | | | | | | [phone] | | | +--------+---------+ + + + [...] + + + | Blood Pressure | 142/90 | 11/23/2011 11:35 AM | | | | | PDT | | + + + + + | Pulse | 65 | 11/23/2011 11:35 AM | | | | | PDT | | + + + + + | Temperature | 36.4 C (97.6 F) | 11/23/2011 11:35 AM | | | | | PDT | | + + + + + | Respiratory Rate | 16 | 11/23/2011 11:35 AM | | | | | PDT | | + + + + + | Oxygen Saturation | 100% | 11/23/2011 11:35 AM | | | | | PDT | | + + + + + | Inhaled Oxygen | - | - | | | Concentration | | | | + + + + + | Weight | 63.7 kg (140 lb 6.4 | 11/23/2011 11:35 AM | | | | oz) | PDT | | + + + + + | Height | - | - | | + + + + + | Body Mass Index | 22.83 | 09/19/2011 12:51 PM | | | | | PST | | + + + + + documented in this encounter Progress Notes Stevan Velazquez MD - 11/23/2011 11:47 AM PDTFormatting of this note might be different fro m the original. Adriana is a pleasant 65 y/o WF with history of right sided breast cancer. Her tumor was T1cN 0 with two lymph nodes involved with isolated tumor cells only. Her tumor was receptor posit wilbert and HER-2 negative. She is s/p right sided mastectomy and carter clearance surgery . She completed in the adjuvant setting chemotherapy with four cycles of taxotere plus cytoxan giv en every three weeks. She has been on Arimidex since Aug 2007. Her other medical history includes low bone density, paroxysmal atrial tachycardia, Sjogren 's syndrome, and frequent SBOs due to multiple abdominal surgeries related to diverticulitis and ruptured of hepatic cyst. Earlier 2008, she had bouts of SOB and work up revealed possi ble pulmonary hypertension which was not confirmed on pulmonary angiogram. 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 Dopplers showed right sided below the knee DVT. She was on coumadin for [address] Campa in 03/24 at which time repeat lower ext Dopp lers was negative. She was taken off coumadin at that time out of concern for toxicity and a lso frequent episodes of SBO flares and potential needs for surgery on semi-urgent basis. Sh e since completed vein stripping surgery. She had upper GI endoscopy for recurrent GERD symp toms. Serial CT scans for small pulmonary nodules. Followed by pulmonary. Adriana recently decided against continued CT monitoring of pulmonary nodules due to concern for radiation exposure. T scores minus 1.9 and minus 1.6 in January 2010. T scores minus 1.8 and minus 1.8 in Apr 2011. Currently receiving reclast infusional therapy from endocrine. FH negative for cancer but mother has osteoporosis SH notable for being , no smoking nor drinking. The third yearly reclast 6 months ago. LDL 113/HDL 45. 25 vitamin D- 76- taking 5000 IU daily. Ionized calcium at 4.8 upper limit 4.7 CBC and CMP OK T4 normal. Patient is here with her . S- Hot flushes- on and off- sometimes a lot but not too often. Enamel chipping Back pain, from lower back to up; and Both hip pain- Zetia since last Nov- pain progressive over back and hips- still having some- Now once wyatt ry third day- off for one week now. Used to be significant pain in the morning or when movin g around-- getting better. Can not sit crossed legs- for many months now. Not changed. Increased vitamin D from 2000 to 5000 IU. Otherwise doing well Energy level is good No cough or SOB Pertussis shot last month. No fever or chills No Numbness or tingling Appetite good and eating and drinking well Weight same. BM - good No tarry or bloody stool No constipation. ROM is good Heart beat OK- thumbs a little at times- not too bad,. Mood is good. Exercise- stretching half an hour and racquet ball half an hour three times a week- physica lly active. Not taking pain med Half a sleeping pill- ativan- twice a week? Sleeping on an angle due to GERD. No PND No ankle or arm swelling. Arthritis over left thumb- need splinting. Right side also. No breast specific complaint Got tooth pulled in Jul 2011- no toothache- TMJ - hurts when she chews- Other ROS is negative. [place] DIGITAL MAMMO DIAG LEFT W/CAD: July 20, 2011 - CC, MLO, and XCCL view(s) were taken of the left breast. Prior study comparison: June 30, 2010, [place] DIGITAL MAMMO DIAG LEFT w/CAD. May 27, 2009, [place] DIAG[place]STIC MAMMO LEFT w/CAD. May 21, 2008, [facility] DIG MAMMO DIAG LEFT. There are scattered fibroglandular densities. There has been right mastectomy. The left breast shows no suspicious calcifications, masses, or architectural distortion present. The images were obtained using full field digital mammography on the dedicated AutoeB[employer] System with R2 CAD. Performed at [facility]. ASSESSMENT: Benign - Category 2 RECOMMENDATION: Routine screening mammogram of the left breast in 1 year. Filed Vitals: 11/23/2011 11:35 AM Weight: 63.685 kg (140 lb 6.4 oz) BP: 142/90 Pulse: 65 Temp: 36.4 C (97.6 F) TempSrc: Oral Resp: 16 SpO2: 100% PainSc: 0 - Zero Mental status, speech normal rate and pitch, alert and oriented x 3 Well groomed and dressed, good eye contact, mood and affect are congruent and appropriate t o situation. Not pale or icteric No oral lesion Neck supple No tenderness on percussion over sinuses Chest, symmetric expansion, BS clear No wheezing or rales Heart, RR, no murmur or gallop Abd, soft and non tender, no liver or spleen or mass palpable No increased rigidity or rebound No lower ext edema No knocking pain down the spine No CVA tenderness Lymphatics- no cervical, axillary, supra-clav or infra-clav LAD Neuro intact A.P- Intended duration of therapy is 5 years of arimidex total. No breast specific complaint. Saw Dr. Heart in Jul 2011. No recent flare in palpitation nor SBO. Advise rechecking vitamin D level- to make sure there is no overshoot. Monitor her body acne/pain for now. Likely due to statin. Advise her to follow up with Dr. Ribera. Patient advised to report back to us in 2-3 weeks regarding pain. Low bone density- had three reclast. Anticipate bounce in bone density off AI. Suggest Engraving Operator visit- dryness and stenosis. Refer to [facility] for exam and trial consideration. I spent more than 25 minutes with the patient face to face, more than half of which was dev oted to direct patient counseling. We review once again the side effects of arimidex which may include the following- bone los s, increased risk of fracture, menopausal symptoms, atrophic vaginitis, development of unfav orable lipid profile, joint pain and muscle ache, mood and cognitive change. She is encouraged to continue calcium and vitamin D supplementation and exercise regularly. She will need to have her lipid profile checked yearly and medically managed if clinically indicated. Component Latest Ref Rng 11/23/2011 11/23/2011 12:24 PM 12:24 PM GLUCOSE, PLASMA (LAB) 60 - 99 mg/dL 83 BUN, PLASMA (LAB) 6 - 20 mg/dL 11 CREATININE PLASMA (LAB) 0.60 - 1.10 mg/dL 0.67 TOTAL PROTEIN, PLASMA (LAB) 6.1 - 7.9 g/dL 7.0 ALBUMIN, PLASMA (LAB) 3.5 - 4.7 g/dL 4.0 CALCIUM, PLASMA (LAB) 8.6 - 10.2 mg/dL 9.5 BILIRUBIN TOTAL 0.3 - 1.2 mg/dL 0.9 ALK PHOS 53 - 141 U/L 69 AST(SGOT) 15 - 41 U/L 36 SODIUM, PLASMA (LAB) 134 - 143 mmol/L 141 POTASSIUM, PLASMA (LAB) 3.4 - 5.0 mmol/L 4.6 CHLORIDE, PLASMA (LAB) 97 - 108 mmol/L 107 TOTAL CO2, PLASMA (LAB) 22 - 29 mmol/L 27 ALT (SGPT) 13 - 48 U/L 30 EGFR - [place] > 60 mL/min > 60 EGFR NON -[place] > 60 mL/min > 60 ANION GAP 4 - 11 mmol/L 7 ANION GAP(ALB CORRECTED) 4 - 11 mmol/L 7 AST CMNT SL HEMO JAMES ICA, WHOLE BLD 1.14 - 1.32 mmol/L 1.23 PH, WHOLE BLOOD 7.41 CALC ICA, WHOLE BLD 1.14 - 1.28 mmol/L 1.23 documented in this en counter Procedure Notes Gisele Strong - 03/15/2012 9:44 PM PDTAssociated Order(s): LAB REPORTSElectronically sign ed by Gisele Strong at 03/15/2012 9:44 PM PDTdocumented in this encounter Miscellaneous Notes Scan - Ligia Faculty - 04/02/2012 8:41 PM PDTElectronically signed by Faculty Ligia at 8:41 PM PDTdocumented in this encounter Plan of Treatment Not on filedocumented as of this encounter Procedures + +--------+ + + + | Procedure Name | Priori | Date/Time | Associated Diagnosis | Comments | | | ty | | | | + +--------+ + + + | LAB REPORTS | | 11/23/2011 | | Results for this | | | | 12:00 AM | | procedure are in the | | | | PDT | | results section. | + +--------+ + + + documented in this encounter Results COMPLETE METABOLIC SET (NA,K,CL,CO2,BUN,CREAT,GLUC,CA,AST,ALT,BILI TOTAL,ALK PHOS,ALB,PROT TOTAL) (11/23/2011 12:24 PM PDT) + + + + + + | Component | Value | Ref Range | Performed | Pathologist | | | | | At | Signature | + + + + + + | GLUCOSE, | 83 | 60 - 99 mg/dL | [facility] | | | PLASMA | | | DEPARTMENT | | | (LAB) | | | OF | | | | | | PATHOLOGY | | + + + + + + | BUN, PLASMA | 11 | 6 - 20 mg/dL | [facility] | | | (LAB) | | | DEPARTMENT | | | | | | OF | | | | | | PATHOLOGY | | + + + + + + | CREATININE | 0.67 | 0.60 - 1.10 | [facility] | | | PLASMA | | mg/dL | DEPARTMENT | | | (LAB) | | | OF | | | | | | PATHOLOGY | | + + + + + + | TOTAL | 7.0 | 6.1 - 7.9 g/dL | [facility] | | | PROTEIN, | | | DEPARTMENT | | | PLASMA | | | OF | | | (LAB) | | | PATHOLOGY | | + + + + + + | ALBUMIN, | 4.0 | 3.5 - 4.7 g/dL | [facility] [...] + + + + | BILIRUBIN | 0.9 | 0.3 - 1.2 mg/dL | [facility] | | | TOTAL | | | DEPARTMENT | | | | | | OF | | | | | | PATHOLOGY | | + + + + + + | ALK PHOS | 69 | 53 - 141 U/L | [facility] | | | | | | DEPARTMENT | | | | | | OF | | | | | | PATHOLOGY | | + + + + + + | AST(SGOT) | 36 | 15 - 41 U/L | [facility] | | | | | | DEPARTMENT | | | | | | OF | | | | | | PATHOLOGY | | + + + + + + | SODIUM, | 141 | 134 - 143 | [facility] | | | PLASMA | | mmol/L | DEPARTMENT | | | (LAB) | | | OF | | | | | | PATHOLOGY | | + + + + + + | POTASSIUM, | 4.6 | 3.4 - 5.0 | [facility] | | | PLASMA | | mmol/L | DEPARTMENT | | | (LAB) | | | OF | | | | | | PATHOLOGY | | + + + + + + | CHLORIDE, | 107 | 97 - 108 mmol/L | [facility] | | | PLASMA | | | DEPARTMENT | | | (LAB) | | | OF | | | | | | PATHOLOGY | | + + + + + + | TOTAL CO2, | 27 | 22 - 29 mmol/L | [facility] | | | PLASMA | | | DEPARTMENT | | | (LAB) | | | OF | | | | | | PATHOLOGY | | + + + + + + | ALT (SGPT) | 30 | 13 - 48 U/L | [facility] | | | | | | DEPARTMENT | | | | | | OF | | | | | | PATHOLOGY | | + + + + + + | EGFR | > 60 | >60 mL/min | [facility] | | | - | | | DEPARTMENT | | | [place] | | | OF | | | [...] + + + | ANION GAP | 7 | 4 - 11 mmol/L | [facility] | | | | | | DEPARTMENT | | | | | | OF | | | | | | PATHOLOGY | | + + + + + + | ANION | 7 | 4 - 11 mmol/L | [facility] | | | GAP(ALB | | | DEPARTMENT | | | CORRECTED) | | | OF | | | | | | PATHOLOGY | | + + + + + + | AST CMNT | SL HEMO | | [facility] | | | | | | DEPARTMENT | | | | | | OF | | | | | | PATHOLOGY | | + + + + + + + + | Specimen | + + | Blood - Blood | + + + + + | Narrative | Performed At | + + + | Sample hemolyzed. Results for K, Total Bili., Direct Bili., AST, LD, | [facility] | | or HDL may be inaccurate. Refer to comment under test result. | DEPARTMENT OF | | | PATHOLOGY | + + + + + + + + | Performing | Address | City/State/Zipcode | Phone Number | | Organization | | | | + + + + + | [facility] | [address] | [place] [address] | | | PATHOLOGY | [address] | | | + + + + + CALCIUM, IONIZED, WHOLE BLOOD (11/23/2011 12:24 PM PDT) + +-------+ + + + | Component | Value | Ref Range | Performed | Pathologist | | | | | At | Signature | + +-------+ + + + | JAMES ICA, | 1.23 | 1.14 - 1.32 | [facility] | | | WHOLE BLD | | mmol/L | DEPARTMENT | | | | | | OF | | | | | | PATHOLOGY | | + +-------+ + + + | PH, WHOLE | 7.41 | | [facility] | | | BLOOD | | | DEPARTMENT | | | | | | OF | | | | | | PATHOLOGY | | + +-------+ + + + | CALC ICA, | 1.23 | 1.14 - 1.28 | [facility] | | | WHOLE BLD | | mmol/L | DEPARTMENT | | | | | | OF | | | | | | PATHOLOGY | | + +-------+ + + + + + | Specimen | + + | Blood - Blood | + + + + + | Narrative | Performed At | + + + | Ionized Calcium, Whole Blood | [facility] | | | DEPARTMENT OF | | | PATHOLOGY | + + + + + + + + | Performing | Address | City/State/Zipcode | Phone Number | | Organization | | | | + + + + + | [facility] DEPARTMENT OF | [address] | [place] [address] | | | PATHOLOGY | [address] | | | + + + + + LAB REPORTS (11/23/2011 12:00 AM PDT) + + + | Narrative | Performed At | + + + | | | + + + + + | Transcriptions | + + | Gisele Strong - 03/15/2012 9:44 PM PDT | + + documented in this encounter Visit Diagnoses + + | Diagnosis | + + | Malignant neoplasm of breast (female), unspecified site - Primary | + + documented in this encounter"
--- OUTSIDE RECORDS SUMMARY | ~2020-05-04 | XMS | Encounter Summary ---
Demographics + + + | Address | [address] | | | [place] [address] | + + + | Home Phone | | + + + | Preferred Language | Unknown | + + + | Marital Status | | + + + | Pentecostal Affiliation | CHR | + + + [...] + | Gene Gee | ECON | [address] | | | | | [place], | | | | | [place] [address] | | + + + + + Care Team Providers + +------+ + | Care Transcription Coordinator Name | Role | Phone | + +------+ + | Antony Ribera MD | PCP | | + +------+ + Encounter Details +--------+ + + + + | Date | Type | Department | Care Team | Description | +--------+ + + + + | 03/11/ | Telephone | Cardiology General | Monique Middleton, | | | 2006 | | at [facility] [address] | [facility] | | | | | [facility] [place] for | | | | | | Health and Healing, | | | | | | Building | | | | | | Floor [place], [place] | | | | | | [address] | | | | | | [phone] | | | +--------+ + + + [...] Telephone Encounter - Monique Middleton Np - 03/11/2007 5:33 PM PDTCalled because she has be en told she has breast cancer--is going to have mastectomy here at [facility] soon. Advised the s semaj thing that was advised with her bowel obstruction--can give IV metoprolol and then when able to eat again can resume moricizine.Electronically signed by Monique Middleton Np at 2006 5:33 PM PDTdocumented in this encounter Plan of Treatment Not on filedocumented as of this encounter Visit Diagnoses Not on filedocumented in this encounter"
--- OUTSIDE RECORDS SUMMARY | ~2020-05-04 | XMS | Encounter Summary ---
Demographics + + + | Address | [address] | | | [place] [address] | + + + | Home Phone | | + + + | Preferred Language | Unknown | + + + | Marital Status | | + + + | Judaism Affiliation | CHR | + + + | Race | White | + + + | Ethnic Group | Not or | + + + Author + + + | Author | [facility] | + + + | Organization | [facility] | + + + | Address | Unknown | + + + | Phone | Unavailable | + + + Support + + + + + | Name | Relationship | Address | Phone | + + + + + | Gene Gee | ECON | [address] | | | | | [place], | | | | | [place] [address] | | + + + + + Care Team Providers + +------+ + | Care Bedspring Assembler Name | Role | Phone | + +------+ + | Antony Ribera MD | PCP | | + +------+ + Reason for Visit + +--------+ + | Reason | Onset | Comments | | | Date | | + +--------+ + | Erroneous Encounter | 07/18/ | | | - Disregard | 2012 | | + +--------+ + Encounter Details +--------+--------+ + + + | Date | Type | Department | Care Team | Description | +--------+--------+ + + + | 07/18/ | Refill | Cardiology | Monique Middleton, | Erroneous Encounter | | 2012 | | Arrhythmia at [facility] | HAZARDOUS MATERIALS ANALYST | - Disregard | | | | [address] | | | | | | [facility] | | | | | | and Healing, | | | | | | Building | | | | | | Floor [place], [place] | | | | | | [address] | | | | | | [phone] | | | +--------+--------+ + + + [...] | + + | Atrial tachycardia 427.89 - Primary Other specified cardiac dysrhythmias | + + documented in this encounter"
--- OUTSIDE RECORDS SUMMARY | ~2020-05-04 | XMS | Encounter Summary ---
Demographics + + + | Address | [address] | | | [place] [address] | + + + | Home Phone | | + + + | Preferred Language | Unknown | + + + | Marital Status | | + + + | Episcopalian Affiliation | CHR | + + + | Race | White | + + + | Ethnic Group | Not or | + + + Author + + + | Author | [facility] | + + + | Organization | [facility] | + + + | Address | Unknown | + + + | Phone | Unavailable | + + + Support + + + + + | Name | Relationship | Address | Phone | + + + + + | Gene Gee | ECON | [address] | | | | | [place], | | | | | [place] [address] | | + + + + + Care Team Providers + +------+ + | Care Slurry Tank Operator Name | Role | Phone | + +------+ + | Antony Ribera MD | PCP | | + +------+ + Encounter Details +--------+ + + + + | Date | Type | Department | Care Team | Description | +--------+ + + + + | 08/15/ | Clinical | [facility] | Nurse5, Hem [address] | | | 2007 | Support | Clinics at S | [address] | | | | Staff | [facility] [address] | [place] [address] | | | | | [facility] | Chr19, Hem [address] | | | | | [facility] and Healing, | [address] Meera [place], | | | | | [facility] [address] | [place] [address] | | | | | [place], [place] | | | | | | [address] | | | | | | [phone] | | | +--------+ + + + [...] documented as of this encounter Progress Notes Monique Jamison RN - 08/15/2007 7:02 PM PSTChemotherapy Nurse Note Name: Adriana Flynn Date: 08/15/2007 Physician: mynor Allergies: Adriana is allergic to sulfa (sulfonamides), ciprofloxacin, triamterene-hydrochlor othiazid, celebrex, albuterol, flecainide acetate, propafenone, and tape adherent. Diagnosis: Breast cancer Significant Other: NA Refer to frequent vital sign/assessment sheet. Refer to Health Education Record Nursing Assessment: Fever: no; Diarrhea: no; SOB / Cough: no; Rash: no Constipation: no; Edema: no; Mucositis: no; Urinary: no; Neuropathy: no; S/S Bleeding: no; Severity (1=Not at all, 2=A little, 3=Quite a bit, 4=Very much) Nausea and/or Vomitin Fatigue: 1 Pain: 0 Location: Duration: Refer to HEM Chemotherapy Doc Flowsheet for treatment details. Narrative: Pt here for chemotherapy. Denies new complaints, last tx today. IV infused well w/o incident. Labs reviewed with pt. Discharged to home, return tomorrow for Neulasta. documented in this enc ounter Plan of Treatment Not on filedocumented as of this encounter Procedures + +--------+ + + + | Procedure Name | Priori | Date/Time | Associated Diagnosis | Comments | | | ty | | | | + +--------+ + + + | COMPLETE METABOLIC | Routin | 08/15/2007 | Carcinoma in Situ | Results for this | | MANOJ (NO CHG), | e | 9:45 AM | of Breast | procedure are in the | | POC | | PST | | results section. | + +--------+ + + + | CBC CELLDYN ADULT | Routin | 08/15/2007 | Carcinoma in Situ | Results for this | | (NO CHG), POC | e | 9:45 AM | of Breast | procedure are in the | | | | PST | | results section. | + +--------+ + + + documented in this encounter Results COMPLETE METABOLIC MANOJ (NO CHG), POC (08/15/2007 9:45 AM PST) + +---------+ + + + | Component | Value | Ref Range | Performed | Pathologist | | | | | At | Signature | + +---------+ + + + | SODIUM, POC | 146 (A) | 133 - 141 | [facility] | | | | | mmol/L | OF CARE | | | | | | TESTS | | + +---------+ + + + | POTASSIUM, | 4.2 | 3.6 - 5 mmol/L | [facility] | | | POC | | | OF CARE | | | | | | TESTS | | + +---------+ + + + | TOTAL CO2, | 28 | 24 - 30 mmol/L | [facility] | | | POC | | | OF CARE | | | | | | TESTS | | + +---------+ + + + | CHLORIDE, | 111 (A) | 97 - 104 mmol/L | [facility] | | | POC | | | OF CARE | | | | | | TESTS | | + +---------+ + + + | GLUCOSE, | 73 | 65 - 110 mg/dL | [facility] | | | POC | | | OF CARE | | | | | | TESTS | | + +---------+ + + + | CALCIUM | 8.7 (A) | 8.8 - 10.9 | [facility] | | | TOTAL, POC | | mmol/L | OF CARE | | | | | | TESTS | | + +---------+ + + + | BUN, POC | 14 | 6 - 20 mg/dL | [facility] | | | | | | OF CARE | | | | | | TESTS | | + +---------+ + + + | CREATININE, | 0.7 | 0.6 - 1.1 mg/dL | [facility] | | | POC | | | OF CARE | | | | | | TESTS | | + +---------+ + + + | ALK PHOS, | 56 | 42 - 98 U/L | [facility] | | | CMP POC | | | OF CARE | | | | | | TESTS | | + +---------+ + + + | ALT, CMP | 30 | 13 - 48 U/L | [facility] | | | POC | | | OF CARE | | | | | | TESTS | | + +---------+ + + + | AST, CMP | 27 | 15 - 41 U/L | [facility] | | | POC | | | OF CARE | | | | | | TESTS | | + +---------+ + + + | BILIRUBIN | 0.6 | 0.3 - 1.2 mg/dL | [facility] | | | TOTAL, CMP | | | OF CARE | | | POC | | | TESTS | | + +---------+ + + + | ALBUMIN, | 3.8 | 3.4 - 4.4 g/dL | [facility] | | | CMP POC | | | OF CARE | | | | | | TESTS | | + +---------+ + + + | PROTEIN | 6.9 | 6.3 - 8 g/dL | [facility] | | | TOTAL, CMP | | | OF CARE | | | POC | | | TESTS | | + +---------+ + + + + + | Specimen | + + | Blood | + + + + + + + | Performing | Address | City/State/Zipcode | Phone Number | | Organization | | | | + + + + + | [facility] | [address] | [place], [place] | | | [facility] | [address] | [address] | | | TESTS | | | | + + + + + | [facility] | [address] | [place], [place] | | | TESTS | [address] | [address] | | + + + + + CBC CELLDYN ADULT (NO CHG), POC (08/15/2007 9:45 AM PST) + + + + + + | Component | Value | Ref Range | Performed | Pathologist | | | | | At | Signature | + + + + + + | WBC POC | 8.7 | 3.4 - 10 K/mm^3 | [facility] | | | (ADULT) | | | OF CARE | | | | | | TESTS | | + + + + + + | LYMPH# POC | 1.9 | 1.6 - 2.6 | [facility] | | | (ADULT) | | | OF CARE | | | | | | TESTS | | + + + + + + | LYMPH% POC | 21.7 (A) | 26 - 41 % | [facility] | | | (ADULT) | | | OF CARE | | | | | | TESTS | | + + + + + + | MID-RANGE# | 0.6 | 0 - 2 | [facility] | | | POC (ADULT) | | | OF CARE | | | | | | TESTS | | + + + + + + | MID-RANGE% | 6.9 (A) | 7 - 15 % | [facility] | | | POC (ADULT) | | | OF CARE | | | | | | TESTS | | + + + + + + | NEUTROPHIL# | 6.2 (A) | 2.2 - 5.2 | [facility] | | | POC | | | OF CARE | | | (ADULT) | | | TESTS | | + + + + + + | NEUTROPHIL% | 71.4 (A) | 48 - 65 % | [facility] | | | POC | | | OF CARE | | | (ADULT) | | | TESTS | | + + + + + + | RBC POC | 4.18 | 3.8 - 5.2 | [facility] | | | (ADULT) | | M/mm^3 | OF CARE | | | | | | TESTS | | + + + + + + | HGB POC | 11.6 (A) | 12.2 - 15 g/dL | [facility] | | | (ADULT) | | | OF CARE | | | | | | TESTS | | + + + + + + | HCT POC | 34.8 (A) | 37 - 46.5 % | [facility] | | | (ADULT) | | | OF CARE | | | | | | TESTS | | + + + + + + | MCV POC | 83.3 (A) | 85 - 95 fL | [facility] | | | (ADULT) | | | OF CARE | | | | | | TESTS | | + + + + + + | MCH POC | 27.8 (A) | 29 - 32 pg | [facility] | | | (ADULT) | | | OF CARE | | | | | | TESTS | | + + + + + + | MCHC POC | 33.3 | 32.6 - 33.9 | [facility] | | | (ADULT) | | g/dL | OF CARE | | | | | | TESTS | | + + + + + + | RDW POC | 17.7 (A) | 11.5 - 15 % | [facility] | | | (ADULT) | | | OF CARE | | | | | | TESTS | | + + + + + + | PLT POC | 255 | 150 - 420 | [facility] | | | (ADULT) | | K/mm^3 | OF CARE | | | | | | TESTS | | + + + + + + | MPV POC | 10.3 | 7.4 - 10.4 fL | [facility] | | | (ALL AGE) | | | OF CARE | | | | | | TESTS | | + + + + + + + + | Specimen | + + | Blood | + + + + + + + | Performing | Address | City/State/Zipcode | Phone Number | | Organization | | | | + + + + + | [facility] | 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
--- OUTSIDE RECORDS SUMMARY | ~2020-05-04 | XMS | Encounter Summary ---
Demographics + + + | Address | [address] | | | [place] [address] | + + + | Home Phone | | + + + | Preferred Language | Unknown | + + + | Marital Status | | + + + | Mu-Ism Affiliation | CHR | + + + [...] + | Gene Sahil | ECON | [address] | | | | | [place], | | | | | [place] [address] | | + + + + + Care Team Providers + +------+ + | Care Business Librarian Name | Role | Phone | + +------+ + PCP | Unavailable | + +------+ + Encounter Details +--------+ + + + + | Date | Type | Department | Care Team | Description | +--------+ + + + + | 02/07/ | Office | [facility] | Clinic, Cardiology | Progress Note | | 2004 | Visit-Trans | | | | | | cribed | | [...] as of this encounter Progress Notes Interface, Tactical Air Control Party Manager In - 02/13/2005 8:54 AM PDT [id number] [facility] Date: 02/07/2005 Clinic: Cardiology Subjective: Adriana is a very nice 59-year-old woman who has a long history of recurrent atrial tachyarrhythmias, mostly surrounding surgical procedures. She did undergo an attempted radiofrequency catheter ablation at [facility] on December 16, 2004. Her procedure was made somewhat more difficult by the difficulty in inducing her atrial arrhythmia. She did have a focus of atrial tachycardia arising from the mid region of the stacey terminalis. She also had a potentially second mechanism of arrhythmia which appear to be in the typical atrial flutter. She tragically lost her granddaughter on the day of her procedure and has been in the grieving process since then. She continues to have palpitations, although they do not seem to be the same degree as before. They seemed to be a little bit worse in the evening. Medications: 1. Atenolol 25 mg a day. 2. Protonix. 3. Aspirin medication. Physical Examination: Vital Signs: Pulse is 82 and regular and blood pressure 110/76. Neck: There is no neck vein distention. Lungs: Clear. Cardiac: Do not reveal murmur or gallop. There is no edema. Impression: Mrs. Flynn is a woman with history of atrial tachycardia which was perhaps modified for her attempted catheter ablation earlier this spring. She does seem to have some persistent symptoms and potentially could be a candidate for repeat procedure since her degree of symptoms require further intervention. At this point, however, I would not be inclined to make any other changes to her medication, although she can take an extra atenolol at night should her symptoms warrant. Plan: Return to clinic in 6 months. Declan Oates / FRANCA [id number] / [id number] / [id number] / [id number] cc: Declan Starkey, [place] documented i n this encounter Plan of Treatment Not on filedocumented as of this encounter Visit Diagnoses Not on filedocumented in this encounter"
--- OUTSIDE RECORDS SUMMARY | ~2020-05-04 | XMS | Encounter Summary ---
Demographics + + + | Address | [address] | | | [place] [address] | + + + | Home Phone | | + + + | Preferred Language | Unknown | + + + | Marital Status | | + + + | Buddhism Affiliation | CHR | + + + | Race | White | + + + | Ethnic Group | Not or | + + + Author + + + | Author | [facility] | + + + | Organization | [facility] | + + + | Address | Unknown | + + + | Phone | Unavailable | + + + Support + + + + + | Name | Relationship | Address | Phone | + + + + + | Gene Gee | ECON | [address] | | | | | [place], | | | | | [place] [address] | | + + + + + Care Team Providers + +------+ + | Care Wood Router Name | Role | Phone | + +------+ + | Antony Ribera MD | PCP | | + +------+ + Encounter Details +--------+ + + + + | Date | Type | Department | Care Team | Description | +--------+ + + + + | 08/14/ | [facility] Plastic and | Kelsi Lopez | pinkness in breast | | 2012 | Encounter | Reconstructive | MD Sudhir | | | | | Surgery at [facility] [address] | | | | | | [address] [facility] | | | | | | for Health and | | | | | | Healing, [address], | | | | | | [address]th Floor | | | | | | [place], [place] | | | | | | [address] | | | | | | [phone] | | | +--------+ + + + [...] this encounter Miscellaneous Notes Telephone Encounter - Jenny Meyer - 08/14/2012 8:48 AM PSTI called and spoke to Mrs. Flynn, informed her that it is not necessary to make a trip up to [place]. Dr. Kelsi Do rp does not wish to start abx. Pt will monitor for S&S of infection and [facility] call [facility]. Next Appointment in [facility] is on 09/05/12 at 11:00 am with Errol Gold MD. elephone Encounter - Jenny Rodney - 08/14/2012 8:43 [address]Dr. Kelsi Lopez was paged.Electronically sukhdeep d by Jenny Meyer at 08/14/2012 8:43 AM PSTdocumented in this encounter Plan of Treatment Not on filedocumented as of this encounter Visit Diagnoses Not on filedocumented in this encounter"
--- OUTSIDE RECORDS SUMMARY | ~2020-05-04 | XMS | Encounter Summary ---
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 | Visit | - Breast Clinic | [address] | Breast (Primary | | | | [address] | [place], [place] | Dx); Breast Cancer | | | | Mailcode: [facility] | [phone] | ([facility]); Abnormal | | | | [facility] | [phone] | Mammogram | | | | and Healing, | | | | | | [facility] | | | | | | [place], [place] | | | | | | [address] | | | | | | [phone] | | | +--------+---------+ + + + [...] + + + | Blood Pressure | 107/65 | 05/21/2008 3:33 PM | | | | | PST | | + + + + + | Pulse | 73 | 05/21/2008 3:33 PM | | | | | PST | | + + + + + | Temperature | 36.4 C (97.5 F) | 05/21/2008 3:33 PM | | | | | PST | | + + + + + | Respiratory Rate | 16 | 05/21/2008 3:33 PM | | | | | PST | | + + + + + | Oxygen Saturation | - | - | | + + + + + | Inhaled Oxygen | - | - | | | Concentration | | | | + + + + + | Weight | 66.7 kg (147 lb) | 05/21/2008 3:33 PM | | | | | PST | | + + + + + | Height | 167 cm (5' 5.75") | 05/21/2008 3:33 PM | | | | | PST | | + + + + + | Body Mass Index | 23.91 | 05/21/2008 3:33 PM | | | | | PST | | + + + + + documented in this encounter Progress Notes Alea Noriega - 05/22/2008 1:46 PM PST [id number] [facility] LAUREN Holman [id number] Referred From and Faxed To: Ross Currie M.D. Referred To: Alea Noriega M.D. Consulting Physician: Alea Noriega M.D. Consultation Date: 05/21/2008 Referring Physician: Ross Currie M.D. New Gastroenterology Outpatient Note Reason For Requested Consultation: Recurrent partial small bowel obstruction, history of multiple abdominal surgeries. History of Present Illness: This is a very pleasant 62-year-old white female with a history of abdominal surgeries, hepatic cyst status post rupture and removal, who is being referred by Dr. Ross Currie after presenting to him for consultation on her recurrent bowel obstructions. The patient states that she has had multiple abdominal surgeries which in brief include a hysterectomy, appendectomy, colonic resection, liver cyst rupture and removal, and surgical hernia repair. The patient states that most recently a few years ago, she had a liver cyst rupture which led to a surgery for liver cyst removal. This was performed by Dr. Callahan. After this specific surgery, the patient stated she then started having problems with bowel obstructions. She says that she can feel when she gets abdominal discomfort, which evolves to bilious vomiting and lack of bowel movement with bowel distention. She specifically identifies dates of July 2004, October 2005, February 2007, twice February 2008, and most recently here at [facility], March 2008 as being episodes of small bowel obstructions. She says that she will be admitted, have imaging performed, have an NG tube placed, and the obstruction gradually resolved on its own without surgical intervention. She has been told in the past that most likely her obstructions are due to her history of abdominal surgery as well as adhesions. Otherwise, the patient has no specific GI complaints aside from these discrete events. She says that when she is not having partial small bowel obstruction, she is able to eat fairly liberally and be very active. She has seen Dr. Currie as noted above for consultation, and the current plan is to watch conservatively and intervene with surgery if clinically indicated. Today, she presents with questions on what she can do to minimize these events of partial small bowel obstructions. Past Medical History: 1. Asthma. 2. GERD. 3. Mitral valve prolapse. 4. Fibromyalgia. 5. Sjogren's. 6. TMJ. 7. Fibrocystic breast disease. 8. Atrial tachycardias. 9. History of basal cell skin cancer on back. 10. History of breast cancer diagnosed, February 2007, status post mastectomy and removal of lymph nodes. 11. Carpal tunnel syndrome. Past Surgical History: 1. Ectopic at 20 years of age. 2. Appendectomy at 25 years of age. 3. Status post adhesiolysis. 4. Endometriosis, status post hysterectomy at 46 years of age. 5. Bladder "tie-up" at 51 years of age. 6. Colonic resection for recurrent diverticulitis, November 25, 2002. 7. Status post cholecystectomy for gallbladder sludge, April 07, 2003. 8. Surgical hernia repair, July 28, 2003. 9. Status post liver cyst rupture, April 30, 2004; liver cyst removal, June 29, 2004. Allergies: CIPRO CAUSES RASH, SULFA CAUSES SWOLLEN FACE, CELEBREX CAUSES INTESTINAL DISTRESS AND WORSENING OF ASTHMA, ALBUTEROL CAUSES RACING HEART, FLECAINIDE ACETATE CAUSES INTESTINAL PROBLEMS, AND PROPAFENONE CAUSES INTESTINAL DISTRESS. Medications: 1. Protonix 40 mg p.o. b.i.d. 2. Atenolol 25 mg p.o. q. day. 3. Dofetilide 500 mcg b.i.d. 4. Arimidex 1 mg daily. 5. Flonase/Spiriva/Pulmicort. 6. Restasis. 7. Boniva. 8. Stool Softener. 9. Potassium chloride. 10. Ativan 1 mg one-half tablet as needed for sleep. 11. In addition, the patient is on a long list of supplementary vitamins. Review of Systems: As per HPI, otherwise negative. Social History: The patient is , has 3 children, and denies any alcohol, smoking, or IV drug use. Family History: Positive for diabetes, fibromyalgia, and cardiovascular disease. PE: BP 107/65, Pulse 73, Temperature 36.4 C (97.5 F), Temperature source Oral, RR 16, Ht 16 7 cm (5' 5.75")( < 3 %ile), Wt 66.679 kg (147 lbs)( < 3 %ile). GEN: NAD, appears well nourished HEENT: No icterus Neck: Supple Cardio: RRR, S1/S2 Lungs: CTA B Abdomen: NT, nondistended, + BS Ext: No peripheral edema Lab Data: Recent hematocrit from April 01, 2008, 41.8, hemoglobin 13.8, white count 9.7, and platelet count 193. AST 24, ALT 21, total bilirubin 1.1, alk phos 66, creatinine 0.88, and lipase normal. Recent imaging performed at [facility] on April 02, 2008, shows an impression of a presumed loop of dilated small bowel suggesting internal hernia versus closed-loop obstruction, less likely thought to represent a pelvic abscess, as well as multiple dilated loops of small bowel noted in the left upper quadrant worrisome for an internal hernia with small bowel obstruction. Finally, there is comment of a nonspecific ectasia of the common duct which is noted to measure 1.4 cm with further evaluation with MRCP or ERCP if clinically indicated. Stable cysts were also noted. Assessment and Plan: This is a 62-year-old white female with a history of multiple abdominal surgeries who presents with recurrent partial small bowel obstruction which has never evolved to requiring surgical resection. She has seen Dr. Currie, and I agree with his assessment to wait conservatively and intervene with surgery only if clinically and urgently indicated with a full small bowel obstruction. Today, we discussed things that she could that may help in preventing these occurrences; however, overall, these are hard to predict. I recommended staying well hydrated as well as maintaining a low residue diet. Should she feel that she is about to have another partial small bowel obstruction, she should change her diet to liquids only and proceed to the emergency room if her condition worsens. All other questions were answered at this time. Incidentally, it has also been noted that she has a prominent common bile duct at 14 mm. In looking in previous CT scan dating back to 2004, the extrahepatic duct has been noted to be prominent and tapering normally to the level of the ampulla. In reviewing her labs, she does not have signs of obstruction chemically. At this time, I would like to review her prior CT scan and see if there has been any interval change in this diameter. If there has been, we can consider following up with an MRCP to evaluate; however, she is not presenting with any evidence of obstruction at this time. Otherwise, we can also consider performing a small-bowel follow-through given that the rate of her small bowel obstructions has increased in frequency over the last few months, to evaluate for a small bowel dilation. After reviewing her prior images, I will call her and discuss any further imaging that we may recommend at this time. 1. Conservative therapy for recurrent partial small bowel obstruction. 2. We will review prior imaging regarding question of incidentally found dilated common bile duct. 3. Further recommendations will be discussed by phone next week. Alea Noriega M.D. BARRY / FRANCA [id number] / [id number] / [id number] / cc: Ross Currie M.D. Division of General Surgery, [facility] aniraLuís camarillo - 05/21/2008 5 :41 PM PSTI performed a history and physical examination of the patient and discussed her ma silvina with the resident. I reviewed the resident s note and agree with the documented findings and plan of care. LUÍS HEART MD rotary drier Division of Surgical Oncology [id number] [place], [place] [address] alma Sanford - 05/21/2008 4:40 PM PST SURGICAL ONCOLOGY CLINIC Attending Physician: Dr. Heart Reason for Visit: Followup c mammogram HISTORY: Ms. Flynn is a 62 y.o. woman with a history of Sjogren's syndrome s/p R SLNBx and total mas tectomy 03/19/07 for invasive ductal carcinoma. Her tumor was receptor positive and HER-2/Maddi negative, T1cN0 with two lymph nodes involved with isolated tumor cells only, and she underw ent completion axillary dissection. She has completed adjuvant chemotherapy and has been on arimidex. She developed contractures following her operation which were subsequently succe ssfully released surgically. Her other medical history includes low bone density, paroxysma l atrial tachycardia, and frequent SBOs due to multiple abdominal surgeries for diverticulit is and hepatic cysts. She returns to clinic today for followup after a 6 month mammogram. She continues to have frequent hospitalizations for SBOs. She is now being followed by GI. She denies any new cyndi mps, bumps, or skin changes in both axillae, her L breast, and R mastectomy scar. Past Medical History Diagnosis Date Sjogrens Syndrome 1995 Fibromyalgia 1995 Mitral Valve Prolapse 1989 GERD (Gastroesophageal Reflux Disease) 1995 Asthma 1999 TMJ (Dislocation of Temporomandibular Joint) Fibrocystic Disease of Breast 1978 Diverticul Disease Small and Large Intestine, no Perforati or Abscess Skin Cancer Small Bowel Obstruction 07/20,10/19,02/19 Atrial Tachycardia 07/20 Bursitis 2006 Plantar Fascial Fibromatosis 2007 Osteopenia 12/30/2007 Past Surgical History Procedure Date Ectopic Hx appendectomy Removal adhesion Hx hysterectomy Bladder tie up Colon resection, diverticulitis 11/25/02 Pr removal gallbladder 04/07/03 Hx hernia repair 07/28/2003 Liver cyst ruptured 04/30/2004 Liver cyst removed 06/29/2004 Hx carpal tunnel release Punctum closed (eyes) 40 years old Sinus procedure 1989? Hx hemorrhoidectomy 1991 Left leg veins 1992 Bunions/hammer toes/neuromas 1998,1999 Heart ablation 12/16/2004,09/21/2005 Current outpatient prescriptions Medication Sig anastrozole (ARIMIDEX) 1 mg Oral Tablet take 1 tablet (1 mg) by oral route once daily anastrozole (ARIMIDEX) 1 mg Oral Tablet take 1 tablet (1 mg) by oral route once daily Atenolol 25 mg Oral Tablet take 1 tablet (25 mg) by oral route once daily calcium citrate-vitamin D (CITRACAL + D) 315-200 mg-unit Oral Tablet 2 tabs twice a day Docusate Sodium (STOOL SOFTENER) 100 mg Oral Capsule take 1 capsule (100 mg) by oral ro hillary once daily at bedtime as needed dofetilide 500 mcg Oral Capsule 1 Cap Oral EVERY 12 HOURS dofetilide 500 mcg Oral Capsule take 1 capsule (0.5 mg) by oral route 2 times per day famotidine (PEPCID) 40 mg Oral Tablet one daily Fish Oil-DHA-EPA (FISH OIL) 1,200-144-216 mg Oral Capsule one daily Glucosamine 1,000 mg Oral Tablet one daily ibandronate (BONIVA) 150 mg Oral Tablet once monthly MULTIVITAMIN OR one daily PROTONIX 40 mg Oral Tablet, Delayed Release (E.C.) take 1 tablet (40mg) by oral route o nce daily, can take additional tablet in the night if needed PULMICORT 0.25 MG/2 ML INHL NEBU RESTASIS OPHT ou tid SPIRIVA WITH HANDIHALER 18 MCG & INHALATION CAPS inhale the contents of one capsule (18 mcg) by inhalation route once daily Vitamin A-Vitamin C-Vit E-Min (ANTIOXIDANT FORMULA) Oral Capsule take 1 capsule by oral route once daily with food VITAMIN D ORAL 2000 IU daily Allergies Allergen Reactions Sulfa (Sulfonamides) Swelling-Facial Ciprofloxacin Hives and Rash Triamterene-hydrochlorothiazid BREAST LUMPS Celebrex (Celecoxib) Diarrhea and Cough Albuterol Tachycardia Flecainide Acetate Rash Propafenone unknown Tape Adherent Rash ROS: As per HPI. All other systems negative. PHYSICAL EXAMINATION: Filed Vitals: 05/21/2008 3:33 PM BP: 107/65 Pulse: 73 Temp: 36.4 C (97.5 F) TempSrc: Oral Resp: 16 Height: 1.67 m (5' 5.75") Weight: 66.679 kg (147 lb) PainSc: 01 - None to Mild PainLoc: Abdominal (Generalized) Gen: NAD AAO very pleasant HEENT: PERRL, EOMI, fundi benign, OP Clear, neck supple CV: RRR no m/g/r Resp: CTA and percussion B, no wheezes, rhonchi, rales; 2 cm symmetrical diaphragmatic excu rsion B Abd: Soft, NT/ND, nabs; no obvious hernias or masses; nonpalpable liver; no Sr. Katty Hamlin 's nodule Several well healed abdominal scars Lymph: No neck, axillary, or inguinal LAD Ext: wwp, tr edema Skin: warm MSK: FAROM BUE Neuro: CN II-XII grossly intact; no gross focal deficits Breast: Right mastectomy and R axillary incision scars well healed. There is no erythema o r discharge. There is no new adenopathy. Palpation of the L breast did not reveal any domin ant masses. The L nipple is everted without discharge. There is no other skin change, dimp ling, or mass. IMAGING STUDIES DIG MAMMO DIAG LEFT: Patient History: Patient is postmenopausal, and has history of breast cancer at age 62. 1mastectomies of the right breast, March 2007. Last mammogram was performed 5 months ago. six month f/u subcentimeter cysts [facility] DIG MAMMO DIAG LEFT: May 21, 2008 - CC, MLO, and XCCL view(s) were taken of the left breast. Prior study comparison: December 05, 2007, [facility] DIG MAMMO DIAG LEFT. November 19, 2006, bilateral mamm ogram, performed at an outside facility. November 23, 2005, bilateral mammogram, performed at an outside facility. The breast tissue is heterogeneously dense. This may lower the sensitivity of mammography. No suspicious calcifications, masses, or architectural distortion present. The patient is st atus post right mastectomy. No significant changes when compared with prior studies. The images were obtained using full field digital mammography on the dedicated [employer] em with R2 CAD. Performed at [facility]. ASSESSMENT: Probably Benign - Category 3 RECOMMENDATION: Routine screening mammogram of the left breast to return to annual screening. ASSESSMENT & PLAN: 62F Hx Sjogren's syndrome s/p R SLNBx and total mastectomy 03/19/07 then completion axillary dissection for invasive ductal carcinoma receptor positive, Her2/Maddi negative T1cN0 with two lymph nodes involved with isolated tumor cells only s/p adjuvant chemotherapy and currently on Arimidex doing well. - Mammogram c category 3 stable calcifications - Can RTC in 1 year with repeat mammogram Pt seen and evaluated with Dr. Heart, who agrees. Salma Sanford MD documented in this encounter Procedure Notes Other, Faculty - 05/21/2008 5:11 PM PSTAssociated Order(s): RADIOLOGY Electronically sign ed by Faculty Other at 05/21/2008 12:00 AM PSTLigia, Faculty - 05/21/2008 5:11 PM PSTAssoci ated Order(s): CARDIOLOGY documented in this encounter Miscellaneous Notes Scan - Other, Faculty - 07/22/2008 11:13 AM PST can - Other, Faculty - 05/21/2008 5:11 PM PSTAssociated Or roxana(s): ORDERS OTHER docum ented in this encounter Plan of Treatment + +---------+--------+ + + | Name | Type | Priori | Associated Diagnoses | Date/Time | | | | ty | | | + +---------+--------+ + + | MA DIAGNOSTIC MAMMO | Imaging | Priori | | 05/27/2009 12:16 PM | | LEFT W/CAD | | ty | | PST | + +---------+--------+ + + documented as of this encounter Procedures + +--------+ + + + | Procedure Name | Priori | Date/Time | Associated Diagnosis | Comments | | | ty | | | | + +--------+ + + + | MA DIAGNOSTIC MAMMO | Routin | 05/27/2009 | Carcinoma in situ | Results for this | | LEFT W/CAD | e | 12:16 PM | of breast | procedure are in the | | | | PST | | results section. | + +--------+ + + + | ORDERS OTHER | | 05/21/2008 | | Results for this | | | | 5:11 PM | | procedure are in the | | | | PST | | results section. | + +--------+ + + + | CARDIOLOGY | | 05/21/2008 | | Results for this | | | | 5:11 PM | | procedure are in the | | | | PST | | results section. | + +--------+ + + + | RADIOLOGY | | 05/21/2008 | | Results for this | | | | 5:11 PM | | procedure are in the | | | | PST | | results section. | + +--------+ + + + documented in this encounter Results [facility] DIAGNOSTIC MAMMO LEFT W/CAD (05/27/2009 12:16 PM PST) + + + + + + | Component | Value | Ref Range | Performed | Pathologist | | | | | At | Signature | + + + + + + | MA | Patient History:Patient | | | | | DIAGNOSTIC | is postmenopausal and | | | | | MAMMO LEFT | has history of breast | | | | | W/CAD | cancer at | | | | | | age62.Mastectomy of the | | | | | | right breast, March | | | | | | 2006.Last mammogram was | | | | | | performed 1 year | | | | | | ago.Reason for exam: | | | | | | history of breast | | | | | | cancer, mastectomy.MA | | | | | | DIAGNOSTIC MAMMO LEFT | | | | | | W/CAD: May 27, 2009 | | | | | | - Accession | | | | | | #:[id number], MLO, and | | | | | | XCCL view(s) were taken | | | | | | of the left breast.Prior | | | | | | study comparison: | | | | | | May 21, 2008, [facility] | | | | | | DIG MAMMO DIAGLEFT. | | | | | | December 05, 2007, [facility] DIG | | | | | | MAMMO DIAG LEFT.The | | | | | | breast tissue is | | | | | | heterogeneously dense. | | | | | | This may lower | | | | | | thesensitivity of | | | | | | mammography. There are | | | | | | innumerable | | | | | | unchangedbenign | | | | | | appearing punctate | | | | | | microcalcifications on | | | | | | the left,consistent with | | | | | | benign adenosis.A 1 cm | | | | | | cyst like density in the | | | | | | medial left breast on | | | | | | the last 2exams, is now | | | | | | absentThe patient is | | | | | | status post right | | | | | | mastectomy. No images. | | | | | | Nosignificant changes | | | | | | when compared with | | | | | | prior studies.The images | | | | | | were obtained using | | | | | | full field digital | | | | | | mammography onthe | | | | | | dedicated [employer] | | | | | | with R2 CAD. Performed | | | | | | at [facility] and | | | | | | Science | | | | | | [place].ASSESSMENT: | | | | | | Benign - Category | | | | | | 2RECOMMENDATION:Routine | | | | | | screening mammogram of | | | | | | the left breast in 1 | | | | | | year.I have personally | | | | | | viewed this | | | | | | procedure/exam and | | | | | | reviewed this | | | | | | report.Author: NARENDRA Dial | | | | | | Declan HOLLOWAYReviewer: | | | | | | NARENDRA HOLLOWAY | | | | | | DeclanSTATUS FINAL / Dr. | | | | | | NARENDRA HOLLOWAY | | | | + + + + + + + + | Specimen | + + | | + + + +---------+ + + | Performing | Address | City/State/Zipcode | Phone Number | | Organization | | | | + +---------+ + + | [facility] DEPARTMENT OF | | | | | RADIOLOGY | | | | + +---------+ + + ORDERS OTHER (05/21/2008 5:11 PM PST) + + + | Narrative | Performed At | + + + | | | + + + + + | Procedure Note | + + | [facility] - 05/21/2008 5:11 PM PST | + + RADIOLOGY (05/21/2008 5:11 PM PST) + + + | Narrative | Performed At | + + + | | | + + + + + | Procedure Note | + + | [facility] - 05/21/2008 5:11 PM PST | + + CARDIOLOGY (05/21/2008 5:11 PM PST) + + + | Narrative | Performed At | + + + | | | + + + + + | Procedure Note | + + | Gisele Strong - 05/21/2008 5:11 PM PST | + + documented in this encounter Visit Diagnoses + + | Diagnosis | + + | 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
--- OUTSIDE RECORDS SUMMARY | ~2020-05-04 | XMS | Encounter Summary ---
Demographics + + + | Address | [address] | | | [place] [address] | + + + | Home Phone | | + + + | Preferred Language | Unknown | + + + | Marital Status | | + + + | Taoism Affiliation | CHR | + + + [...] + | Gene Sahil | ECON | [address] | | | | | [place], | | | | | [place] [address] | | + + + + + Care Team Providers + +------+ + | Care Womens Health Nurse Practitioner Name | Role | Phone | + +------+ + PCP | Unavailable | + +------+ + Encounter Details +--------+ + + + + | Date | Type | Department | Care Team | Description | +--------+ + + + + | 07/19/ | Inpatient | | Report, Inpatient | | | 2005 | Progress | | Consultation | | | | Note | | | | +--------+ + + [...] as of this encounter Progress Notes Interface, Public Policy Manager In - 02/12/2005 12:07 AM PDT [id number] 07/17/2004 07/19/2004 [id number] SAHIL Holman Referred From and Faxed To: Enzo Arana M.D. Referred To: Cardiology. Consulting Physician: Jorge Pérez M.D. Consultation Date: 07/19/2004 Chief Complaint: History of supraventricular tachycardia. The patient is here with small bowel obstruction. Reason for Requested Consultation: Ms. Flynn is a pleasant 58-year-old woman with a history of Sj gren's syndrome, asthma, hepatic cysts with status post a recent marsupialization of the cyst done in the middle of June of 2004. Postoperatively she developed some ectopic atrial tachycardia and was seen by the cardiology consult team. At that time they felt that the patient would likely benefit from continuing on an antiarrhythmic at least in the short term postoperatively and had recommended that the patient be discharged on amiodarone 200 mg p.o. q.d. as well as digoxin 250 mcg p.o. q.d. with followup with Dr. Gary Fuentes at the [facility] Cardiology Department for determination if this needed to be continued half-way. The patient was admitted for a small bowel obstruction and was initially unable to take any medications p.o. and therefore was receiving her medications including amiodarone and digoxin through IV. She is having problems with infiltrate of the IVs, therefore they had switched to being able to give her medications p.o. but nothing else. Of note the patient does report that she does have a history of having a racing heart sensation especially after she drank caffeine. She does report some occasional chest pressures which she notes most often when she is under emotional stress. She states this happens occasionally with the last notable time that she remembers this is about 8 months ago. She does say that has happened at other times since then; however, not as bad. The inpatient primary team has asked us to see the patient for our input for her current need for antiarrhythmic medications an if there are any further changes that we would recommend. Past Medical History: 1. Sj gren syndrome diagnosed in 1998. 2. Fibromyalgia. 3. History of mitral valve prolapse. 4. Gastroesophageal reflux disease. 5. Asthma. 6. Temporomandibular joint problems. 7. Fibrocystic breast disease. 8. Diverticulitis, status post colonic resection. 9. Status post appendectomy. 10. History of ectopic . 11. Status post hysterectomy. 12. Cholecystectomy. 13. Multiple hepatic cysts status post marsupialization in June 2004. Family History: significant for coronary artery disease. Social History: the patient denies any tobacco or alcohol abuse at this time. Current Medications: 1. Amiodarone 100 mg p.o. b.i.d. 2. Digoxin 0.25 mg p.o. q.d. 3. Prevacid 30 mg p.o. q.d. Allergies: CIPRO, SULFA, THIAZIDE. Review of Systems: as per history of present illness, other positive include dry mouth as well as occasional flairs in pressures in her chest as mentioned above. She also has the small bowel obstruction with his now starting to resolve and she is having passing gas as well as stool. Physical Examination: blood pressure 110-123/47, pulse 80-94, temperature 38.0, JVP 8, BP 165/60. General: the patient is alert and oriented times three in no acute distress, very pleasant. HEENT: she has an NG tube in place. Pupils are equal, round and reactive to light. Extraocular movements were intact. Mucous membranes are slightly dry. Neck: soft, supple without any lymphadenopathy and her JVP is approximately 8. Cardiovascular: regular rate and rhythm, without murmurs, rubs, or gallops. Respiratory: clear to auscultation bilaterally. Abdomen: soft, slightly distended with hypoactive bowel sounds. Extremities: warm without any cyanosis, clubbing or edema. Laboratory and Imaging data: EKG: normal sinus rhythm. There is some nonspecific ST depressions and T-wave flattening. These have been noted on previous EKGs. Laboratory Data: BMP: sodium 135, potassium 3.8, chloride 102, bicarbonate 28, BUN 7, creatinine 0.8, glucose 99, calcium 8.7, albumin low at 2.6, CBC shows a white count of 7.6, hematocrit 37, platelets 430,000. Her troponins were checked upon admission and over the last day they were 0.01 and 0.01 which are negative. Impression/ Recommendations: Ms. Flynn is a pleasant 58-year-old woman with recent supraventricular tachycardia, postoperatively who we are seeing for consultation on input for her antiarrhythmia drugs. 1. Supraventricular tachycardia: the patient is currently in normal sinus rhythm; however, she is still at risk for turning it into atrial fibrillation. She does state a history of having a history of palpations whenever she had caffeine intake. We recommend continuing her medications at her current doses and having her scheduled for followup evaluation with Dr. Fuentes which she states is scheduled for August 09, 2004. At that time he will be able to assess the patient's rhythm at that point and if there is any necessary for prolonged treatment for amiodarone or digoxin. The patient does have the history now of having atrial fibrillation making her at increased risk for having strokes and the patient should be consulted on anticoagulation. 1.1 Continue amiodarone at 200 mg p.o. q.d. 1.2 Continue digoxin at 250 mcg p.o. q.d. 1.[address] Gary Fuentes in the cardiology department with a scheduled appointment for August 09, 2004. 1.4 Consideration for anticoagulation, recommend aspirin at the minimum if tolerated. 2. Chest pressure: the patient describes these chest pressures which come along with emotional stress. She sounds like she is a very active woman who does a lot of hikes and does not notice any pressures that are elicited by that; however, with these ST flattening in the family history I think it would be prudent to have evaluation for her cardiac status, likely benefiting from some further risk stratification. The patient stated that her primary care physician Dr. Saman Ribera had ordered some tests and we will defer this to his care; however, if there is any preoperative evaluation that needs to be done we will be happy to assist in that. Guido Lowery M.D. Jorge Pérez M.D. [id number] cc: Gary Fuentes M.D. Professor, Medicine Division of Cardiology Dilip Frias M.D. [address] [place] [address] Saman Ribera M.D. [facility] [address] [place] [id number] Electronically signed by Jorge Pérez 07-29-2004 11:42:54 AM documented i n this encounter Plan of Treatment Not on filedocumented as of this encounter Visit Diagnoses Not on filedocumented in this encounter"
--- OUTSIDE RECORDS SUMMARY | ~2020-05-04 | XMS | Encounter Summary ---
Demographics + + + | Address | [address] | | | [place] [address] | + + + | Home Phone [...] Author + + + | Author | [facility] | + + + | Organization | [facility] | + + + | Address | Unknown | + + + | Phone | Unavailable | + + + Support + + + + + | Name | Relationship | Address | Phone | + + + + + | Gene Sahil | ECON | [address] | | | | | [place], | | | | | [place] [address] | | + + + + + Care Team Providers + +------+ + | Care Lens Mounter Name | Role | Phone | + [...] as of this encounter Progress Notes Interface, Frame Changer In - 02/14/2005 7:02 AM PDT [id number] SAHIL Holman Clinic Date: 02/07/2005 Clinic: Cardiology Subjective: Adriana is a very nice 59-year-old woman who has a long history of recurrent atrial tachyarrhythmias, mostly surrounding surgical procedures. She did undergo an attempted radiofrequency catheter ablation at [facility] on December 16, 2004. Her procedure was [...] in 6 months. Declan Oates / FRANCA [id number] / [id number] / [id number] / [id number] cc: Declan Starkey, [place] Electronically signed by Gary Fuentes 02-13-2005 02:50:53 PM documented i n this encounter Plan of Treatment Not on filedocumented as of this encounter Visit Diagnoses Not on filedocumented in this encounter"
--- OUTSIDE RECORDS SUMMARY | ~2020-05-04 | XMS | Encounter Summary ---
Demographics + + + | Address | [address] | | | [place] [address] | + + + | Home Phone [...] + | Gene Gee | ECON | [address] | | | | | [place], | | | | | [place] [address] | | + + + + + Care Team Providers + +------+ + | Care Sap Gatherer Name | Role | Phone | + +------+ + | Antony Ribera MD | PCP | | + +------+ + Encounter Details +--------+ + + + + | Date | Type | Department | Care Team | Description | +--------+ + + + + | 07/05/ | Procedure - | | Endoscopy, Gi | Colonoscopy | | 2005 | | | | | | | Transcribed | | [...] as of this encounter Procedure Notes Interface, Pit Inspector In - 07/12/2006 6:42 AM PST PROCEDURES:COLONOSCOPY CPT: 32054. WITH BIOPSY. CPT: 40429. PERSONNEL:THE ATTENDING PHYSICIAN WAS PRESENT DURING THE ENTIRE PROCEDURE. FELLOW: CHAVA MARSHALL MD. LEVEL OF SUPERVISION: 2. ENDOSCOPIST: KORI AGUILLON MD. REFERRED BY:KORI AGUILLON MD. EXAM LOCATION:EXAM PERFORMED IN ENDOSCOPY SUITE. OUTPATIENT PATIENT CONSENT:PROCEDURE, ALTERNATIVES, RISKS AND BENEFITS DISCUSSED, CONSENT OBTAINED, FROM PATIENT. CONSENT WAS OBTAINED BY THE PHYSICIAN. CONSENT TO BE CONTACTED WAS GIVEN. SYMPTOMS:DIARRHEA CURRENT MEDICATIONS:PATIENT IS NOT CURRENTLY TAKING COUMADIN. BETA- BLOCKERS: [place] MEDICAL/ SURGICAL HISTORY:SBO , LIVER CYSTS, ECTOPIC ATRIAL TACHYCARDIA, FAILED ABLATION. REFLUX DISEASE, SJOGRENS, COMMENTS:S/P PARTIAL COLONIC RESECTION FOR DIVERTICULITIS IN REMOTE PAST, NOW W CRAMPY ABD PAIN AND WATERY DIARHEA C/W IBS PRE-EXAM PHYSICAL:PERFORMED JUL 05, 2006. ENTIRE PHYSICAL EXAM WAS NORMAL. EXAM:EXTENT OF EXAM REACHED: CECUM, EXTENT INTENDED: CECUM. THE CECUM WAS IDENTIFIED BY APPENDICEAL ORIFICE AND IC VALVE. PATIENT POSITION: ON LEFT SIDE. DURATION OF EXAM: 15 MINUTES. COLON RETROFLEXION PERFORMED. IMAGES TAKEN. ASA CLASSIFICATION: II. TOLERANCE: EXCELLENT. MONITORING:PULSE AND BP MONITORING, OXIMETRY USED. COLON PREPUSED FLEETS PREP KIT FOR COLON PREP. PREP RESULTS: EXCELLENT. SEDATION MEDS:PATIENT ASSESSED AND FOUND TO BE APPROPRIATE FOR MODERATE (CONSCIOUS) SEDATION. SEDATION WAS MANAGED BY THE ENDOSCOPIST. FENTANYL 75 MCG. GIVEN IV. MIDAZOLAM 3 MG. GIVEN IV. INSTRUMENT(S):OLYMPUS PCF-140L COLONOSCOPE. NORMAL EXAM: TRANSVERSE COLON. BIOPSY/NORMAL EXAM TAKEN. PATH # 1. COMMENTS: RANDOM LEFT AND R SIDED BX TAKEN TO R/O MICROSCOPIC COLITIS. NORMAL EXAM: CECUM. NORMAL EXAM: RECTUM. COMMENTS:SURGICAL ANASTAMOSIS COULD NOT BE FOUND - ENTIRE EXAM NL. NORMAL EXAMINATION. COMMENTS:NORMAL EXAM S/P PARTIAL COLONIC RESECTION- ANASTAMOSIS COULD NOT BE FOUND RANDOM BX TO R/O MICROSCOPIC COLITIS PATH LETTER PENDING UNPLANNED INTERVENTIONS:NO INTERVENTION WAS REQUIRED. UNPLANNED EVENTS:THERE WERE NO COMPLICATIONS. COMMENTS:PATH LETTER 2 WKS F/U W DR AGUILLON SCHEDULED DISPOSITION:AFTER PROCEDURE PATIENT SENT TO SHORT STAY UNIT. AFTER RECOVERY PATIENT SENT HOME. PATHOLOGY:BIOPSY/NORMAL EXAM: TRANSVERSE COLON. PATH # 1. REPORT ENTERED BY: CHAVA MARSHALL MD documented in this encounter Plan of Treatment Not on filedocumented as of this encounter Procedures + +--------+ + + + | Procedure Name | Priori | Date/Time | Associated Diagnosis | Comments | | | ty | | | | + +--------+ + + + | COLONOSCOPY | | 07/05/2006 | | | + +--------+ + + + | BRONCHOSCOPY | | 07/05/2006 | | | + +--------+ + + + documented in this encounter Visit Diagnoses Not on filedocumented in this encounter"
--- OUTSIDE RECORDS SUMMARY | ~2020-05-04 | XMS | Encounter Summary ---
Demographics + + + | Address | [address] | | | [place] [address] | + + + | Home Phone | | + + + | Preferred Language | Unknown | + + + | Marital Status | | + + + | Yazidism Affiliation | CHR | + + + | Race | White | + + + | Ethnic Group | Not or | + + + Author + + + | Author | [facility] | + + + | Organization | [facility] | + + + | Address | Unknown | + + + | Phone | Unavailable | + + + Support + + + + + | Name | Relationship | Address | Phone | + + + + + | Gene Gee | ECON | [address] | | | | | [place], | | | | | [place] [address] | | + + + + + Care Team Providers + +------+ + | Care Telesales Supervisor Name | Role | Phone | + +------+ + | Antony Ribera MD | PCP | | + +------+ + Reason for Visit +--------+--------+ + | Reason | Onset | Comments | | | Date | | +--------+--------+ + | Preop | 06/11/ | | | | 2006 | | +--------+--------+ + Encounter Details +--------+ + + + + | Date | Type | Department | Care Team | Description | +--------+ + + + + | 06/11/ | Telephone-S | Preoperative | Phone, [facility] [phone] | Preop | | 2007 | cheduled | Medicine Clinic at | [facility] | | | | | [address] Day | [address] [place], [place] | | | | | Stay [address] | [address] | | | | | [address] | | | | | | Mailcode: [id number] | | | | | | [facility] | | | | | | [address] [place], [place] | | | | | | [address] | | | | | | [phone] | | | +--------+ + + + [...] this encounter Miscellaneous Notes Telephone Encounter - Bharati Roque - 06/11/2007 10:14 AM PSTSee scanned phone visit monica mentcheli. documented in th is encounter Plan of Treatment Not on filedocumented as of this encounter Visit Diagnoses + + | Diagnosis | + + | Muscle contracture - Primary Spasm of muscle | + + documented in this encounter"
--- OUTSIDE RECORDS SUMMARY | ~2020-05-04 | XMS | Encounter Summary ---
Demographics + + + | Address | [address] | | | [place] [address] | + + + | Home Phone | | + + + | Preferred Language | Unknown | + + + | Marital Status | | + + + | Evangelical Affiliation | CHR | + + + [...] + | Gene Gee | ECON | [address] | | | | | [place], | | | | | [place] [address] | | + + + + + Care Team Providers + +------+ + | Care Instructor Adjunct Pharmacy Technician Name | Role | Phone | [...] Closed | | Gastroenterol | Diagnoses | Yoni Tobar, | [facility] End[facility] | | | | ogy | GERD | [address] | | | | | (gastroesoph | [address] | [address] | | | | | ageal reflux | [address] | [place] | | | | | disease) | [place], [place] | [address] | | | | | Procedures | [address] | floor | | | | | CONSULT TO | Phone: | [place], [place] | | | | | GI PROCEDURE | [phone] | [address] | | | | | UNIT: [address] | Fax: | Phone: | | | | | PH | [phone] | [phone] | | | | | | | Fax: | | | | | | | [phone] | +--------+--------+ + + + + Consultation (Routine) +--------+--------+ + + + + | Status | Reason | Specialty | Diagnoses / | Referred By | Referred To | | | | | Procedures | Contact | Contact | +--------+--------+ + + + + | Closed | | Gastroenterol | Diagnoses | Yoni Tobar, | [facility] End[facility] | | | | ogy | GERD | MD [address] | [address] | | | | | (gastroesoph | [address] | [address] | | | | | ageal reflux | [address] | [place] | | | | | disease) | [place], [place] | [address] | | | | | Procedures | [address] | floor | | | | | CONSULT TO | Phone: | [place], [place] | | | | | GI PROCEDURE | [phone] | [address] | | | | | UNIT: EGD | Fax: | Phone: | | | | | | [phone] | [phone] | | | | | | | Fax: | | | | | | | [phone] | +--------+--------+ + + + + Reason for Visit + + + | Reason | Comments | + + + | Follow-up visit | | + + + Encounter Details +--------+---------+ + + + | Date | Type | Department | Care Team | Description | +--------+---------+ + + + | 09/30/ | Office | Digestive Health | Yoni Tobar MD | GERD | | 2009 | Visit | Center at [facility] [address] | [address] | (gastroesophageal | | | | [address] [facility] | [address] [place], | reflux disease) | | | | for Health and | [place] [address] | (Primary Dx) | | | | [facility] | [phone] | | | | | [facility] [place] | | | | | | [address] | | | | | | [phone] | | | +--------+---------+ + + + [...] + + + | Blood Pressure | 134/73 | 09/30/2009 10:44 AM | | | | | PDT | | + + + + + | Pulse | 61 | 09/30/2009 10:44 AM | | | | | PDT | | + + + + + | Temperature | 36.4 C (97.5 F) | 09/30/2009 10:44 AM | | | | | PDT | | + + + + + | Respiratory Rate | 16 | 09/30/2009 10:44 AM | | | | | PDT | | + + + + + | Oxygen Saturation | - | - | | + + + + + | Inhaled Oxygen | - | - | | | Concentration | | | | + + + + + | Weight | 65.3 kg (144 lb) | 09/30/2009 10:44 AM | | | | | PDT | | + + + + + | Height | 167.6 cm (5' 6") | 09/30/2009 10:44 AM | | | | | PDT | | + + + + + | Body Mass Index | 23.24 | 09/30/2009 10:44 AM | | | | | PDT | | + + + + + documented in this encounter Progress Notes Yoni Tobar MD - 09/30/2009 11:37 AM PDTAddendum: Discussed calcium supplementation during chcf use of PPI. Patient is already doing so for her h/o osteopenia/porosis. oni Tobar MD - 09/30/2009 10:50 AM PDTFormatting of this note might be different from zachariah tamez. GENERAL GASTROENTEROLOGY CLINIC FOLLOW UP Adriana Flynn is an 64 y.o. female, who returns for evaluation and management of GERD. PMH signficant h/o breast cancer 2.5 years ago, Sjogren's syndrome, multiple abdominal surgerie s, and consultation by me in 05/2008 for recurrent SBOs. Patient reports that she has not h ad an SBO since, but presents with her today to discuss her GERD. Today she c/o GERD symptoms, which she describes: -loss of effect of Protonix, up to 40 mg BID (initially seemed to work) -recent trial of Kapidex, worsened her heartburn -now on Aciphex BID since beginning of this week, seems to be helping a little bit -feels that her voice is hoarse -pill dysphagia, occ solid food dysphagia--this is longstanding -abdominal bloating, with belching and passing gas -she has had GERD symptoms since 1995, and described her classic GERD symptoms as heartburn -minimal improvement on elevating HOB and avoiding large meals before bedtime -minimal caffeine use -reports h/o EGD and motility testing by Dr. 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 Current outpatient prescriptions: anastrozole (ARIMIDEX) 1 mg Oral Tablet, Take 1 Tab by mo ut once daily., Disp: 90 Tab, Rfl: 2 atenolol 25 mg Oral Tablet, Take 25 mg by mouth once daily. , Disp: , Rfl: budesonide (PULMICORT FLEXHALER) 180 mcg/Inhalation Inhalation Aerosol [facility] Breath Activat ed, Inhale 1 Puff two times daily. 2 puffs in the am and 1 puff in the pm, Disp: 90 day supp ly , Rfl: 4 calcium citrate-vitamin D (CITRACAL + D) 315-200 mg-unit Oral Tablet, 2 tabs twice a day, D isp: , Rfl: Dexlansoprazole 60 mg Oral Cap, Delayed Rel., Multiphasic, Take 60 mg by mouth once daily., Disp: , Rfl: Docusate Sodium (STOOL SOFTENER) 100 mg Oral Capsule, 1 pill by mouth 2 X per day, Disp: , Rfl: DOFETILIDE 500 mcg Oral Capsule, Take 1 Cap by mouth two times daily., Disp: 60 Cap, Rfl: 6 fluticasone (FLONASE) 50 mcg/Actuation Nasal [place], Suspension, Instill 2 Sprays into each nostril once daily., Disp: 90 day supply', Rfl: 4 Glucosamine 1,000 mg Oral Tablet, one daily, Disp: , Rfl: MULTIVITAMIN OR, one daily, Disp: , Rfl: potassium chloride SR 20 mEq Oral Tab Sust.Rel. Particle/Crystal, Take 1 Tab by mouth once daily. , Disp: 90, Rfl: 4 tiotropium (SPIRIVA WITH HANDIHALER) 18 mcg Inhalation Capsule, w/Inhalation Device, Inhale 1 Cap once daily., Disp: 90 day supply, Rfl: 4 Vitamin A-Vitamin C-Vit E-Min (ANTIOXIDANT FORMULA) Oral Capsule, take 1 capsule by oral ro [place] once daily with food, Disp: , Rfl: VITAMIN D ORAL, 2000 IU daily, Disp: , Rfl: zoledronic acid (RECLAST) 5 mg/100 mL Intravenous Solution, Inject into the vein (IV). John rly- rcvd 01/19/09 , Disp: , Rfl: Allergies Allergen Reactions Sulfa (Sulfonamides) Swelling-Facial Ciprofloxacin Hives and Rash Triamterene-hydrochlorothiazid BREAST LUMPS Celebrex (Celecoxib) Diarrhea and Cough Albuterol Tachycardia Flecainide Acetate Rash Intestinal discomfort Propafenone unknown Crestor (Rosuvastatin Calcium) muscle/Jt Pain Zetia (Ezetimibe) Nausea/Vomiting Tape Adherent Rash Review of Systems: All other systems negative. Examination: General: Adriana Flynn is a 64 y.o. female in [facility] BP 134/73 | Pulse 61 | Temp(Src) 36.4 C (97.5 F) (Oral) | Resp 16 | Ht 1.676 m (5' 6") | Wt 65.318 kg (144 lb) Assessment: Adriana Flynn is a 64 y.o. female was seen in the Gastroenterology clinic for f ollow up of persistent heartburn symptoms despite PPI BID use. Given persistence, will carrie oscar with EGD + pH study while patient is on PPI. Will also obtain OSH from Dr. Frias to review his manometry study--as if she has true acid reflux symptoms, she may not be a great surgical candidate if she has ineffective peristalsis movement. Plan: 1. EGD + pH study. 2. Continue Aciphex for now. 3. RTC after procedures. No orders of the defined types were placed in this encounter. Counseling Time: I spent a total of 20 minutes was spent with this patient, of which greate r than 50% of the time was spent counseling. YONI TOBAR MD documented in t his encounter Miscellaneous Notes Scan - Other, Faculty - 01/12/2010 12:00 AM PDT can - Other, Faculty - 09/30/2009 11:28 AM PDT can - Other, Faculty - 09/30/2009 11:28 AM PDT documented in this encou nter Plan of Treatment Not on filedocumented as of this encounter Visit Diagnoses + + | Diagnosis | + + | GERD (gastroesophageal reflux disease) - Primary Esophageal reflux | + + documented in this encounter
--- OUTSIDE RECORDS SUMMARY | ~2020-05-04 | XMS | Encounter Summary ---
Demographics + + + | Address | [address] | | | [place] [address] | + + + | Home Phone [...] + | Gene Gee | ECON | [address] | | | | | [place], | | | | | [place] [address] | | + + + + + Care Team Providers + +------+ + | Care Spring Upholsterer Name | Role | Phone | + [...] | Closed | | | | | | +--------+--------+ + + + + Encounter Details +--------+---------+ + + + | Date | Type | Department | Care Team | Description | +--------+---------+ + + + | 06/26/ | Surgery | 6A Intra Op [id number] | Kelsi Lopez | RIGHT BREAST | | 2011 | | [facility] | MD Sudhir | RECONSTRUCTION WITH | | | | [facility] | | TISSUE PROMOTIONAL DEMONSTRATOR | | | | Hospital Admitting | | PLACEMENT Pathology | | | | Desk Located on the | | x1 | | | | 9th floor | | | | | | [place], [place] | | | | | | [address] | | | +--------+---------+ + + + [...] + + + | Blood Pressure | 110/54 | 06/27/2012 7:25 AM | | | | | PST | | + + + + + | Pulse | 69 | 06/27/2012 7:25 AM | | | | | PST | | + + + + + | Temperature | 36.8 C (98.2 F) | 06/27/2012 7:25 AM | | | | | PST | | + + + + + | Respiratory Rate | 16 | 06/27/2012 7:25 AM | | | | | PST | | + + + + + | Oxygen Saturation | 99% | 06/27/2012 7:25 AM | | | | | PST | | + + + + + | Inhaled Oxygen | - | - | | | Concentration | | | | + + + + + | Weight | 64 kg (141 lb 1.5 | 06/26/2012 12:52 PM | | | | oz) | PST | | + + + + + | Height | 165.7 cm (5' 5.25") | 06/26/2012 12:52 PM | | | | | PST | | + + + + + | Body Mass Index | 23.3 | 06/26/2012 12:52 PM | | | | | PST | | + + + + + documented in this encounter Discharge Summaries Brannon Archer MD - 06/27/2012 10:00 AM PSTFormatting of this note might be different f rom the original. INPATIENT PHYSICIAN DISCHARGE SUMMARY Author: BRANNON ARCHER MD Attending Physician: Kelsi Lopez MD PCP: Latosha Ribera MD Admission Date: 06/26/2012 Discharge Date: 27 Jun 2012 Diagnoses Principal Final Diagnosis: 1. Acquired absence of right breast Procedures 1. Placement of right subpectoral tissue repairer welding equipment 450 mL [place] Siltex Contour Profile repairer welding equipment, reference #[id number], serial #[id number] , filled to 250 mL intraoperatively Brief Hospital Course 66 yo F s/p R mastectomy (550 g) ALND in 2006 and adjuvant therapy who was admitted for obs ervation s/p Placement of right subpectoral tissue repairer welding equipment. Patient has a history of atria l fibrillation, PE and DVT so she was administer 1 dose of prophylactic Lovenox post-operati vely. POD-1 her pain was well controlled and she was discharged in good condition. Medications: Current Discharge Medication List START taking these medications Details acetaminophen 325 mg Oral tablet Take 1-2 Tabs by mouth every four hours as needed. bacitracin 500 unit/g Topical Ointment Apply to affected area two times daily. Qty: 15 g, Refills: 1 Comments: Apply around drain site twice per day. cephALEXin (KEFLEX) 250 mg Oral capsule Take 1 Cap by mouth every six hours for 14 days. Qty: 56 Cap, Refills: 1 ibuprofen 400 mg Oral tablet Take 1-1.5 Tabs by mouth every four hours as needed. oxyCODONE, immediate release, 5 mg Oral tablet Take 1-3 Tabs by mouth every three hours as needed for severe pain. Qty: 60 Tab, Refills: 0 senna (SENNA LAX) 8.6 mg Oral tablet Take 1 Tab by mouth once daily. Qty: 30 Tab, Refills: 0 Comments: Take while taking oxycodone to avoid opiate induced constipation CONTINUE these medications which have NOT CHANGED Details anastrozole (ARIMIDEX) 1 mg Oral Tablet Take 1 Tab by mouth once daily. Qty: 90 Tab, Refills: 2 atenolol 50 mg Oral Tablet Take 25 mg by mouth two times daily. 1/2 tablet twice daily budesonide (PULMICORT FLEXHALER) 180 mcg/actuation Inhalation Aerosol Powdr Breath Activate d Inhale 2 Puffs once daily. calcium citrate-vitamin D (CITRACAL + D) 315-200 mg-unit Oral Tablet 2 tabs in evening and liquid calcium citrate in AM Diclofenac Sodium (VOLTAREN) 1 % Topical Gel Apply to affected area three times daily. DOFETILIDE 500 mcg Oral Capsule Take 1 Cap by mouth two times daily. Qty: 180 Cap, Refills: 3 Comments: Dofetilide Prescriber number WCP [id number] Associated Diagnoses: Other specified cardiac dysrhythmias ezetimibe (ZETIA) 10 mg Oral Tablet Take 10 mg by mouth once daily. fluticasone (FLONASE) 50 mcg/actuation Nasal [place], Suspension Instill 1 [place] into each no stril two times daily. Qty: 1 Each, Refills: 6 Glucosamine 1,000 mg Oral Tablet one daily Methylcellulose, Laxative, (CITRUCEL) Oral Powder Take by mouth. MULTIVITAMIN OR one daily potassium chloride SR 20 mEq Oral Tab Sust.Rel. Particle/Crystal Take 1 Tab by mouth once d aily. Please dispense as K-dur- other preparations do not get absorbed properly Qty: 90 Tab, Refills: 4 Associated Diagnoses: Other specified cardiac dysrhythmias rabeprazole (ACIPHEX) 20 mg Oral Tablet, Delayed Release (E.C.) Take 20 mg by mouth once da yin. tramadol (ULTRAM) 50 mg Oral Tablet Take 1 Tab by mouth every six hours as needed for moder ate pain. Qty: 30 Tab, Refills: 6 Associated Diagnoses: Sjogren's syndrome Vitamin A-Vitamin C-Vit E-Min (ANTIOXIDANT FORMULA) Oral Capsule take 1 capsule by oral rou te once daily with food VITAMIN D ORAL 2000 IU daily Diet Regular Regular diet- There are no restrictions to your diet. You may eat or drink whatever you pr efer, though healthy food choices are recommended. Activity Lifting restrictions: Restrict the amount of lifting to 10 lbs to prevent injury and promo te healing. Other Discharge Orders and Instructions Medication Refill Instructions: If you need a refill on any narcotic pain medications, please call the clinic ([phone] ) by 2 pm on for any weekend needs. It will take 3 business days to mail any prescr iptions to you. The resident will not be able to fill narcotic scripts after 5 pm daily and on the weekends. Please plan ahead and keep track of how many pain pills you have left. When to Call the Doctor - If your incision becomes red, swollen, or has any bloody or pus-like drainage. - If you have a fever of 101.5 F or greater or if you have chills - If you have increased pain, unrelieved by your pain medications - If you have persistent nausea, vomiting, diarrhea, or no bowel movement for more than 2 d ays after discharge from the hospital - If you develop any unusual signs or symptoms, including chest pain, shortness of breath, pulmonary embolism, leg swelling, pain or redness that is abnormal for you, and other sympto ms of concern - If you have any questions or concerns. How to Call the Doctor - You may contact your doctor through the plastic surgery clinic at [phone]. Please ke ep in mind that you may be connected with the on-call doctor. Constipation: It is very important to avoid constipation and straining while trying to have a bowel movem ent. It is common to experience constipation when taking narcotics. There are medications li ke stool softeners ( colace a.k.a. Docusate Sodium) or laxatives ( miralax, senokot+stool so ftener, Dulcolax suppository) that can help avoid this problem. Please work towards having a bowel movement every 1-2 days. A hot drink each morning will also help the sphincter to wor k in pushing the stool forward. It is important to stay hydrated, about 45- 60 fluid ounces daily, and this will help your bowel function. Pain: You may experience pain after your operation, and it is important to have you manage your p ain to increase your activity, sleep and overall healing. Please take the pain medication pr escribed as needed. If you take daily pain medicine then you may take this in addition to y our daily medications however please use caution as it may make you more sleepy. Make sure y ou do not take more than 4,000 mg of tylenol or acetaminophen in 24 hours. Wound care: You may shower. Incisions are usually closed with a surgical glue that is water tight. Pl ease blot incisions with dry towels to dry. Do not rub. If you have any dressings they may be removed in 48 hours. Drain care: Please track drain output from each drain separately every 24 hours. Please bring this rec ord to plastic surgery clinic. Please keep this clean. Before and after showering please p lace a small amount of bacitracin at the skin opening to protect around the drain. Please ta ke antibiotics as prescribed, you should continue taking them for as long as the drain is in place. Twice daily you should use a q-tip to clean around the drain site, cleaning off any debris or old bacitracin, then place a new coat of bacitracin around the drain and place a piece of gauze below the drain and on top of the drain, so that the tube immediately adjacent the op ening is sandwiched between two pieces of gauze. Tape them in place. Lifting: No heavy lifting greater than 10 lbs. Vitals on discharge: Ht 165.7 cm (5' 5.25")( < 3 %ile), Wt 64 kg (141 lbs 1.5 oz)( < 3 %ile ), BP 110/54, Pulse 69, Temperature 36.8 C (98.2 F), RR 16, SpO2 99%, BMI 23.30 kg/(m^2) . Outstanding labs/studies: pathology from mastectomy scar Discharging Physician: BRANNON ARCHER MD Attending Physician: Kelsi Lopez MD documented in this encounter Discharge Instructions Instructions Carrie Benjamin - 06/27/2012Patient Education Materials: instructed on how to care for TIMOTHY as well as what to expect at home after breast reconstruction Additional Instructions: Discharge Nurse: Carrie Date: 06/27/2012 Discharge Time: 10:30 AM AttachmentsThe following attachments cannot be sent through Care Everywhere.Breast Reconstr uction With Rolled Seat Trimmer or Implant: What to Expect at Homedocumented in this encounter Medications at Time of [...] + + + +---------+ + + | cephALEXin | Take 1 Cap by mouth | 56 Cap | 1 | 06/27/20 | | | (KEFLEX) 250 mg Oral | every six hours for | | | 12 | 2 | | capsule | 14 days. | | | | | + + + +---------+ + + documented as of this encounter Progress Notes Kelsi Lopez MD - 06/27/2012 9:06 AM PSTPlastics Attending Note I saw and examined the patient and agree with the assessment and plan as documented in the resident's note. Doing well. Pain minimal. Tolerating diet. Exam - no concerns. D/c today w abx until drain comes out, and drain care. Dez Roy MD - 06/27/2012 5:51 AM [facility] PLASTIC SURGERY PROGRESS NOTE: Hospital Day:1 Author; BRANNON ARCHER MD Attending Physician: Kelsi Lopez MD Interval History: doing well. No acute events. Physical Exam: Last Vitals: BP 127/69 | Pulse 67 | Temp 36.9 C (98.4 F) | RR 15 | Ht 1.657 m (5' 5.25" ) | Wt 64 kg (141 lb 1.5 oz) | SpO2 99% | BMI 23.30 kg/(m^2) O2 Delivery Device: None (room air) (06/27/12 0427) 24 Hour Vital Min/Max: Systolic (24hrs), Av mmHg, Min:125 mmHg, Max:162 mmHgDiastolic (24hrs), Av mmHg, M in:67 mmHg, Max:115 mmHgPulse Av.8 Min: 65 Max: 81 Temp Av.7 C (98 F) Min: 36.4 C (97.5 F) Max: 36.9 C (98.4 F) Resp Av.7 Min: 11 Max: 16 SpO2 Av.5 % Min: 97 % Max: 100 % Exam: R breast: skin flaps soft, incision intact, drains in place Assessment and Plan: Adriana Flynn is a 66 y.o. female who is S/P Placement of right subpectoral tissue repairer welding equipment Dc today F/u Abx until drain is dced BID drain care BRANNON ARCHER MD Debt Recovery Officer Department of Plastic Surgery [facility] 06/27/2012 5:51 AM ackman, Brannno Bustamante MD - 06/26/2012 5:37 PM PSTPatient to be admitted to observation secondary to high perioperative risk given recent episode of atrial fibrillation, history of PE and DVT, also for post-oper ative pain control. Brannon Archer MD Plastic Surgery [id number] signed by Brannon Archer MD at 06/26/2012 5:39 PM P STdocumented in this encounter H&P Notes Other, Faculty - 07/01/2012 11:07 AM PSTElectronically signed by Faculty Other at 2 11:08 AM PSTdocumented in this encounter Procedure Notes Other, Faculty - 07/01/2012 11:07 AM PSTAssociated Order(s): PROCEDURE NOTEElectronically s igned by Faculty Other at 07/01/2012 11:08 AM PSTMuatif, Kelsi Peguero MD - 06/26/2012 5:20 P M PSTAssociated Order(s): PROCEDURE NOTEDate: 06/26/12 Attending Surgeon: Kelsi Lopez MD Rodeo Clown(s): Barron Archer MD Preoperative Diagnosis(es): Acquired absence of right breast Postoperative Diagnosis(es): Acquired absence of right breast Procedure Performed: Placement of right subpectoral tissue repairer welding equipment 450 mL [place] Siltex Contour Profile repairer welding equipment, reference #[id number], serial #[id number] , filled to 250 mL intraoperatively Anesthesia: General endotracheal Complications: None Indications: Adriana Flynn is a 66 y.o. woman with a history of right breast cancer who und erwent a rightl mastectomy by Dr. Heart. She was interested in reconstruction and desired tissue expanders because she did not want any donor site morbidity and she was tired of the inconvenience of her prosthesis. Prior to the procedure, informed consent was obtained. Spec [facility] risks discussed with the patient included bleeding, infection, hematoma, seroma, implan t malposition, asymmetry, noticeable rippling, contracture, pain, and numbness. All question s were answered prior to the procedure. Procedure: The patient was marked in the PACU in the sitting position. Landmarks identifi ed included the inframammary folds, lateral and superior boarders of the breasts, and midlin e. The patient was taken to the operating room and prepped and draped in the usual sterile m rg. Prior to the beginning of the procedure, the team paused to verify the patient s id entity, the procedure to be performed (in accordance with the consent,) and the correct side /site. The patient was positioned appropriately. All relevant images and results were proper ly labeled and displayed. We addressed antibiotic prophylaxis and fluids for irrigation as a pplicable to this patient. Any safety precautions were addressed. We began the procedure by excising the lateral mastectomy scar and dissecting down to muscl e. Both superior and inferior skin flaps were ~ 2 cm thick and pink with good capillary ref ill and bleeding edges. We then began with creation of the implant pocket. First, the pector laura muscle was elevated off the chest wall at its lateral border with Bovie electrocautery. The pectoralis was released from its inferior insertion and medial insertion for ~ 2-3 cm. Tissue lateral to the pectoralis muscle was elevated over the serratus to create a lateral f lap (fibroadipose) of tissue to cover the implant. Then, we began preparation of the tissue repairer welding equipment. A 450 mL Rialto tissue repairer welding equipment fille d to 50 mL was placed in the subpectoral pocket. Correct orientation was verified. Preparati on of the implant involved using a closed port filling system, Betadine preparation of the s kin, and minimal handling (with fresh gloves) of the implant. We then began closure. A lon l irrigation, suction, and inspection for hemostasis was made. The pectoralis was approximat ed with 3-0 Polysorb horizontal mattress sutures. A 19-Swedish Alexander drain was placed in the subcutaneous plane over the muscle after tunneling through the subcutaneous tissue for 2-3 c m. The skin was closed with 3-0 Biosyn dermal suture and 4-0 Biosyn running subcuticular sut ure. The incision was then cleaned and wiped dry. Dermabond was applied to the skin incision s. Bacitracin ointment was applied around the drain sites. The patient tolerated the procedu re well, and there were no complications. At the end of the procedure, all sponge, needle, a nd instrument counts were correct. I was present and scrubbed for the entire case. The patie nt was transported to the recovery room in stable condition following the procedure. Kelsi Lopez MD documented in this encounter Miscellaneous Notes Scan - Other, Faculty - 07/01/2012 11:07 AM PSTElectronically signed by Faculty Other at 11:08 AM PSTScan - Ligia, Faculty - 07/01/2012 11:07 AM PST can - Ligia, Faculty - 07/01/2012 11:07 AM PSTElec tronically signed by Gisele Other at 07/01/2012 11:08 AM PSTEvaluation - Carrie Benjamin - 06/27/2012 10:37 AM PSTPatient discharged via wheelchair home with . PIVS discontinu ed with catheter intact. Patient stated understanding of AVS, drain and incision care. Ethan garcía at time of discharge la n of Care - Carrie Benjamin - 06/27/2012 8:34 AM PSTProblem: General Plan of Care (Adult) Intervention: NPEOC Acute Goals: (set during eye level conversation with patient) 1. Restful sleep 2. Pain controlled 3. No falls 4. Prepare for discharge Interventions: 1. Minimize interruptions, cluster care, pain controlled. 2. Assess pain q2 hrs, PO pain meds prior to IV, monitor for oversedation, md notified if c urrent pain meds are ineffective 3. Call light in place, bed alarm on, check q2 hrs, pt aware to call for assist for all OOB activity, 4. Ambulates independently, tolerates PO, pain controlled on oral pain meds, voids valuation - Aranza Judge RN - 06/27/2012 6:21 AM PSTProblem: General Plan of Care (Adult) Intervention: NPEOC Acute Goals: 1. Restful sleep 2. Pain controlled 3. No falls 4. Prepare for discharge Interventions: 1. Minimize interruptions, cluster care, pain controlled. 2. Assess pain q2 hrs, PO pain meds prior to IV, monitor for oversedation, md notified if current pain meds are ineffective 3. Call light in place, bed alarm on, check q2 hrs, pt aware to call for assist for all OO B activity, 4. Ambulates independently, tolerates PO, pain controlled on oral pain meds, voids. Interventions that worked/didn't work:effective My recommendations forward:continue Patient Stability:Moderately Stable lan of Care - Mary Judge RN - 06/27/2012 5:07 AM PSTProblem: General Plan of Care (Adult) Intervention: NPEOC Acute Goals: 1. Restful sleep 2. Pain controlled 3. No falls 4. Prepare for discharge Interventions: 1. Minimize interruptions, cluster care, pain controlled. 2. Assess pain q2 hrs, PO pain meds prior to IV, monitor for oversedation, md notified if current pain meds are ineffective 3. Call light in place, bed alarm on, check q2 hrs, pt aware to call for assist for all OO B activity, 4. Ambulates independently, tolerates PO, pain controlled on oral pain meds, voids. andoff - Aranza Judge RN - 06/26/2012 8:31 PM PSTNursing Handoff Report Primary focus of stay: BREAST RECONSTRUCTION WITH TISSUE PROMOTIONAL DEMONSTRATOR PLACEMENT - RIGHT BREAST RECONSTRUCTION WITH TISSUE PROMOTIONAL DEMONSTRATOR PLACEMENT Patient to be admitted to observation secondary to high perioperative risk given recent epi sode of atrial fibrillation, history of PE and DVT Pertinent physical findings: PIV x2, IVF, surgibra and fluffs in place, TIMOTHY x1, SBA, voiding well, scd's, ambulated several times around unit over noc. Orders to follow up on: Last pain assessment/reassessment: oxy 5mg at 1800, 1900 and 2300 Psych/social issues: pleasant, [place] at [place], [place]. Last patient visit (i.e. Falls/Activity/Comfort/Environment/Toileting/Skin): Anticipated or pending procedures: lowsheet Note - Mary Cummings RN - 06/26/2012 8:30 PM [id number] pt reports she takes aciphex 20mg PO twice a day and needs a dose tonight. Med not currently ordered, sent text paged to Dr. Gonzalez #[phone], orders received. andoff - Aydin Amaya RN - 06/26/2012 6:12 PM PSTMeets Phase I Discharge Criteria (Stable For Transfer): Yes Major deviations/events or pertinent findings of aurelia-operative stay: pt. Did well in pacu does have a hx of a-fib and atrial tachycardia, no signs today Anticipated post-op needs/devices/follow up: monitor drain output and pt. Does need to urin ate before 2300 last void at 1430 Post-Op Diagnosis Codes: * Acquired absence of breast and nipple [V45.71] Surgical Procedure Planned - Actual Procedure Performed: BREAST RECONSTRUCTION WITH TISSUE PROMOTIONAL DEMONSTRATOR PLACEMENT - RIGHT BREAST RECONSTRUCTION WITH TI SSUE PROMOTIONAL DEMONSTRATOR PLACEMENT Pathology x1 Anesthesia: General Length of procedure: In Room/Out of Room: 2 Hr 5 Min 58 Sec Surgeon(s) and Role: * Kelsi Lopez MD - Primary OR positioning comments: supine Neuro: POSS Sedation Level: Slighty Drowsy Last pain medication given: Pain medication totals: 100mcg Fentanyl, 1mg hydromorphone Additional pain medication information: 5 mg oxycodone Functional Epidural: N/A LICENSED AUDIOLOGIST: N/A Respiratory: RR: 13 , O2 Sat: 100 %, O2 Delivery: None (room air) Breath Sounds: WDL JOSEFINA: LLL: RUL: RLL: MAURO Yes Comment: breathing easy no signs of obstruction on RA Cardiac: BP: 134/74 mmHg HR: 68 GI: Nausea/Vomiting Status: No Signs/Symptoms: Interventions: Assessment: Comments: tolerating fluids : Last void: 1430 Contact Name: Deepak Flynn (spouse) Contact Number: [phone] Family contacted: Yes Comment: has been updated Belongings:none documented in this enco unter Plan of Treatment Not on filedocumented as of this encounter Procedures + +--------+ + + + | Procedure Name | Priori | Date/Time | Associated Diagnosis | Comments | | | ty | | | | + +--------+ + + + | PROCEDURE NOTE | Routin | 08/20/2015 | | Results for this | | | e | 12:20 AM | | procedure are in the | | | | PST | | results section. | + +--------+ + + + | PROCEDURE NOTE | Routin | 08/20/2015 | | Results for this | | | e | 12:16 AM | | procedure are in the | | | | PST | | results section. | + +--------+ + + + | BREAST | Electi | 06/26/2012 | Acquired absence | | | RECONSTRUCTION WITH | ve | 2:54 PM | of breast and nipple | | | TISSUE PROMOTIONAL DEMONSTRATOR | Surgic | PST | | | | PLACEMENT | al | | | | + +--------+ + + + +---+--------+ | | | | | Specia | | | l | | | Needs | | | 23 | | | HOUR | | | OBSERV | | | ATION | +---+--------+ + +--------+ +---+ + | SURGICAL PATHOLOGY | Routin | 06/26/2012 | | Results for this | | | e | | | procedure are in the | | | | | | results section. | + +--------+ +---+ + documented in this encounter Results PROCEDURE NOTE (08/20/2015 12:20 AM PST)PROCEDURE NOTE (08/20/2015 12:16 AM PST) + + | Transcriptions | + + | Other, Faculty - 07/01/2012 11:07 AM PST | + + SURGICAL PATHOLOGY (06/26/2012) + + + + + + | Component | Value | Ref Range | Performed | Pathologist | | | | | At | Signature | + + + + + + | SURGICAL | SOURCE OF SPECIMEN:A | | [facility] | | | PATHOLOGY | Right breast mastectomy | | DEPARTMENT | | | | skin Final | | OF | | | | Pathologic | | PATHOLOGY | | | | Diagnosis:Right breast | | | | | | mastectomy skin, | | | | | | excision: - Skin | | | | | | and subcutaneous tissue | | | | | | with scar - | | | | | | Negative for malignancy | | | | | | Case seen | | | | | | by:Fidelia | | | | | | Addi/Student | | | | | | Richard Shah, | | | | | | MEli/PathologistT:06/28/ | | | | | | 12/sg Clinical | | | | | | History:The patient is a | | | | | | 66-year-old female with | | | | | | right breast | | | | | | mastectomy. Gross | | | | | | Description:Received is | | | | | | 1 specimen fresh in a | | | | | | container labeled with | | | | | | the patient | | | | | | name(initials CB) and | | | | | | "right breast mastectomy | | | | | | skin." Received is | | | | | | anunoriented, 4.9-gram, | | | | | | 7.5 x 2 x 0.4-cm, soft, | | | | | | lobular, yellow-red, | | | | | | fattytissue with an | | | | | | overlying 7.5 x 0.4-cm, | | | | | | wrinkled, evangelista skin | | | | | | ellipse.Sectioning | | | | | | reveals no obvious | | | | | | lesions. | | | | | | Campus Recruiter | | | | | | sections of thespecimen | | | | | | are submitted. | | | | | | Cassette Index:[id number] | | | | | | My electronic | | | | | | signature indicates that | | | | | | I have personally | | | | | | reviewed alldiagnostic | | | | | | slides, the gross and/or | | | | | | microscopic portion of | | | | | | thisreport and | | | | | | formulated the final | | | | | | diagnosis. | | | | | | Rendering Diagnostician: | | | | | | Ilya Shah | | | | | | MDPathologistElectronica | | | | | | lly Signed 06/30/2012 | | | | | | 10:54AM | | | | + + + + + + + + | Specimen | + + | | + + + + + + + | Performing | Address | City/State/Zipcode | Phone Number | | Organization | | | | + + + + + | [facility] [facility] | [address] | [place] [address] | | | PATHOLOGY | [address] | | | + + + + + documented in this encounter Visit Diagnoses + + | Diagnosis | + + | Acquired absence of breast and nipple | + + documented in this encounter Administered Medications + +--------+ +------+------+------+ | Medication Order | MAR | Action | Dose | Rate | Site | | | Action | Date | | | | + +--------+ +------+------+------+ | anastrozole (aka ARIMIDEX) | Given | 06/27/20 | 1 mg | | | | tablet 1 mg 1 mg, oral, DAILY, | | 12 8:46 | | | | | First dose on Sun06/26/12 at | | AM PST | | | | | 1915, Until Discontinued | | | | | | + +--------+ +------+------+------+ +---+---+ | | | +---+---+ + +-------+ +-------+---+---+ | atenolol (aka TENORMIN) tablet | Given | 06/26/20 | 25 mg | | | | 25 mg 25 mg, oral, TWICE DAILY, | | 12 10:24 | | | | | First dose on Sun06/26/12 at | | PM PST | | | | | 2100, Until Discontinued | | | | | | + +-------+ +-------+---+---+ +---+---+ | | | +---+---+ + +-------+ +---------+---+ + | bacitracin ointment | Given | 06/26/20 | 1 strip | | Surgical | | INTRAPROCEDURE PRN, Starting Wed | | 12 4:30 | | | Site | | 06/26/12 at 1630, Until Wed | | PM PST | | | | | 06/26/12 at 1700 | | | | | | + +-------+ +---------+---+ + +---+---+ | | | +---+---+ + +-------+ +---+---+---+ | bacitracin ointment topical, | Given | 06/27/ | | | | | TWICE DAILY, First dose on Sun | | 12 8:44 | | | | | 12 at 2100, Until | | AM PST | | | | | Discontinued | | | | | | + +-------+ +---+---+---+ +-------+ +---+---+---+ | Given | 06/26/20 | | | | | | 12 10:25 | | | | | | PM PST | | | | +-------+ +---+---+---+ +---+---+ | | | +---+---+ + +---------+ +-----+--------+---+ | ceFAZolin (aka ANCEF) IV 1 g 1 | New Bag | 06/27/20 | 1 g | mL/hr | | | g, intravenous, EVERY 8 HOURS, | | 12 7:51 | | | | | First dose on Sun06/26/12 at | | AM PST | | | | | 2300, Until Discontinued | | | | | | + +---------+ +-----+--------+---+ +---------+ +-----+--------+---+ | New Bag | 06/26/20 | 1 g | mL/hr | | | | 12 11:15 | | | | | | PM PST | | | | +---------+ +-----+--------+---+ +---+---+ | | | +---+---+ + +-------+ +---------+---+---+ | dofetilide (aka TIKOSYN) | Given | 06/27/20 | 500 mcg | | | | capsule 500 mcg 500 mcg, oral, | | 12 8:45 | | | | | TWICE DAILY, First dose on Sun | | AM PST | | | | | 06/26/12 at 2100, Until | | | | | | | Discontinued | | | | | | + +-------+ +---------+---+---+ +-------+ +---------+---+---+ | Given | 06/26/20 | 500 mcg | | | | | 12 10:24 | | | | | | PM PST | | | | +-------+ +---------+---+---+ +---+---+ | | | +---+---+ + +-------+ +-------+---+---+ | enoxaparin (aka LOVENOX) | Given | 06/26/20 | 40 mg | | | | injection 40 mg 40 mg, | | 12 10:24 | | | | | subcutaneous, EVERY EVENING, | | PM PST | | | | | First dose on Sun06/26/12 at | | | | | | | 2100, Until Discontinued | | | | | | + +-------+ +-------+---+---+ +---+---+ | | | +---+---+ + +-------+ +-------+---+---+ | ezetimibe (aka ZETIA) tablet 10 | Given | 06/26/20 | 10 mg | | | | mg 10 mg, oral, DAILY, First | | 12 10:24 | | | | | dose on Sun06/26/12 at 1915, | | PM PST | | | | | Until Discontinued | | | | | | + +-------+ +-------+---+---+ +---+---+ | | | +---+---+ + +---------+ +--------+--------+---+ | fentaNYL citrate (PF) (aka | New Bag | 06/26/20 | 50 mcg | mL/hr | | | SUBLIMAZE) injection 50 mcg 50 | | 12 5:10 | | | | | mcg, intravenous, POSTPROCEDURE | | PM PST | | | | | PRN, Starting Sun06/26/12 at | | | | | | | 1537, Until Sun06/26/12 at 1736, | | | | | | | moderate pain | | | | | | + +---------+ +--------+--------+---+ + +---+ | | | + +---+ | fentaNYL citrate (PF) (aka | | | SUBLIMAZE) injection 1 dose, | | | Starting Sun06/26/12 at 1706, | | | Until Sun06/26/12 at 1710 | | + +---+ | | | + +---+ + +---------+ +--------+--------+---+ | HYDROmorphone (aka DILAUDID) | New Bag | 06/26/20 | 0.5 mg | mL/hr | | | injection 0.2-0.5 mg 0.2-0.5 mg, | | 12 5:31 | | | | | intravenous, POSTPROCEDURE PRN, | | PM PST | | | | | Starting Sun06/26/12 at 1537, | | | | | | | Until Sun06/26/12 at 1736, | | | | | | | moderate pain | | | | | | + +---------+ +--------+--------+---+ +---------+ +--------+--------+---+ | New Bag | 06/26/20 | 0.5 mg | mL/hr | | | | 12 5:21 | | | | | | PM PST | | | | +---------+ +--------+--------+---+ + +---+ | | | + +---+ | HYDROmorphone (aka DILAUDID) | | | injection 1 dose, Starting Wed | | | 06/26/12 at 1707, Until Wed | | | 06/26/12 at 1721 | | + +---+ | | | + +---+ + +---------+ + + +---+ | lactated ringers IV 75 mL/hr, | New Bag | 06/26/20 | 75 mL/hr | 75 mL/hr | | | intravenous, CONTINUOUS, Starting | | 12 6:22 | | | | | 06/26/12 at 1800, Until [place] | | PM PST | | | | | 06/27/12 at 1639 | | | | | | + +---------+ + + +---+ +---+---+ | | | +---+---+ + +-------+ +-------+---+ + | lidocaine-EPINEPHrine (aka | Given | 06/26/20 | 20 mL | | Surgical | | XYLOCAINE WITH EPINEPHRINE) 1 | | 12 3:59 | | | Site | | %-1:100,000 injection | | PM PST | | | | | INTRAPROCEDURE PRN, Starting Wed | | | | | | | 06/26/12 at 1559, Until Wed | | | | | | | 06/26/12 at 1700 | | | | | | + +-------+ +-------+---+ + +---+---+ | | | +---+---+ + +-------+ +---+---+ + | neomycin/polymixin B | Given | 06/26/20 | | | Surgical | | irrigant-NS IRRIGATION | | 12 3:56 | | | Site | | INTRAPROCEDURE PRN, Starting Wed | | PM PST | | | | | 06/26/12 at 1556, Until Wed | | | | | | | 06/26/12 at 1700 | | | | | | + +-------+ +---+---+ + +---+---+ | | | +---+---+ + +-------+ +------+---+---+ | oxyCODONE (immediate release) | Given | 06/27/20 | 5 mg | | | | (aka ROXICODONE) tablet 5-15 mg | | 12 6:41 | | | | | 5-15 mg, oral, EVERY 3 HOURS | | AM PST | | | | | NEEDED, Starting 06/26/12 at | | | | | | | 1731, Until [place] 06/27/12 at 1639, | | | | | | | severe pain | | | | | | + +-------+ +------+---+---+ +-------+ +------+---+---+ | Given | 06/27/20 | 5 mg | | | | | 12 12:28 | | | | | | AM PST | | | | +-------+ +------+---+---+ | Given | 06/26/20 | 5 mg | | | | | 12 7:05 | | | | | | PM PST | | | | +-------+ +------+---+---+ + +---+ | | | + +---+ | oxyCODONE (immediate release) | | | (aka ROXICODONE) tablet 1 dose, | | | Starting Sun06/26/12 at 1750, | | | Until Sun06/26/12 at 1758 | | + +---+ | | | + +---+ + +-------+ +--------+---+---+ | potassium chloride SR (aka | Given | 06/27/20 | 20 mEq | | | | K-DUR) tablet 20 mEq 20 mEq, | | 12 8:45 | | | | | oral, DAILY, First dose on Sun | | AM PST | | | | | 06/27/12 at 0900, Until | | | | | | | Discontinued | | | | | | + +-------+ +--------+---+---+ +---+---+ | | | +---+---+ + +-------+ +-------+---+---+ | RABEprazole (aka ACIPHEX) | Given | 06/27/20 | 20 mg | | | | tablet 20 mg 20 mg, oral, TWICE | | 12 8:44 | | | | | DAILY, First dose on Sun06/26/12 | | AM PST | | | | | at 2100, Until Discontinued | | | | | | + +-------+ +-------+---+---+ +-------+ +-------+---+---+ | Given | 06/26/20 | 20 mg | | | | | 12 10:24 | | | | | | PM PST | | | | +-------+ +-------+---+---+ +---+---+ | | | +---+---+ + +-------+ +-------+---+ + | ropivacaine (aka NAROPIN) 5 | Given | 06/26/20 | 20 mL | | Surgical | | mg/mL injection INTRAPROCEDURE | | 12 4:00 | | | Site | | PRN, Starting Sun06/26/12 at | | PM PST | | | | | 1600, Until Sun06/26/12 at 1700 | | | | | | + +-------+ +-------+---+ + +---+---+ | | | +---+---+ documented in this encounter
--- OUTSIDE RECORDS SUMMARY | ~2020-05-04 | XMS | Encounter Summary ---
Demographics + + + | Address | [address] | | | [place] [address] | + + + | Home Phone | | + + + | Preferred Language | Unknown | + + + | Marital Status | | + + + | Lutheran Affiliation | CHR | + + + | Race | White | + + + | Ethnic Group | Not or | + + + Author + + + | Author | [facility] | + + + | Organization | [facility] | + + + | Address | Unknown | + + + | Phone | Unavailable | + + + Support + + + + + | Name | Relationship | Address | Phone | + + + + + | Gene Gee | ECON | [address] | | | | | [place], | | | | | [place] [address] | | + + + + + Care Team Providers + +------+ + | Care Combat Systems Operator Name | Role | Phone | + +------+ + | Antony Ribera MD | PCP | | + +------+ + Encounter Details +--------+ + + + + | Date | Type | Department | Care Team | Description | +--------+ + + + + | 07/31/ | MyChart | Surgical Oncology | [facility], | RE: diagnosis | | 2008 | Encounter | at [facility] [address] | MD [address] | | | | | Ave [place] for | [place], [place] | | | | | Health and Healing, | [address] | | | | | [address] | [phone] | | | | | [place], [place] | | | | | | [address] | | | | | | [phone] | | | +--------+ + + + [...]
--- OUTSIDE RECORDS SUMMARY | ~2020-05-04 | XMS | Encounter Summary ---
Demographics + + + | Address | [address] | | | [place] [address] | + + + | Home Phone | | + + + | Preferred Language | Unknown | + + + | Marital Status | | + + + | Scientologist Affiliation | CHR | + + + [...] + | Gene Gee | ECON | [address] | | | | | [place], | | | | | [place] [address] | | + + + + + Care Team Providers + +------+ + | Care Regional Commercial Sales Manager Name | Role | Phone | [...] | +--------+ + + + + | 12/06/ | Documentati | [facility] JON at [facility] | Lab, Gi Procedure | Medical Records | | 2012 | on | [facility] [address] | | Review | | | | [address] [facility] | | | | | | [facility] and Healing, | | | | | | [address] | | | | | | [place], [place] | | | | | | [address] | | | | | | [phone] | | | +--------+ + + + [...] this encounter Miscellaneous Notes Telephone Encounter - Keyla Dhillon RN - 12/06/2012 2:26 PM PDTFormatting of this note migh t be different from the original. AFTER MEDICAL REVIEW to be scheduled: []Consultation []Colonoscopy []Flexible Sigmoidoscopy []EGD (Upper Endoscopy) [] Sm Bowel Enteroscopy []Capsule Endoscopy: []Small Bowel []ESO []Upper EUS 60min []Upper EUS 90min []Lower EUS []ERCP [x]24HR ph Monitor [x]Esophageal Manometry []48HR ph Monitor []Esophageal Manometry []Esophageal Manometry []Anorectal Manometry []Other: When to be scheduled: To be scheduled with: 2 to 4 weeks First available provider Patient Denied - (Reason): [] Get Images Pushed to IMPAX Other Comments: GI RN: Pt had 01/12/10 EGD with Helms placement at [facility]. Since LES measurement not found ma nometrically then she will need manometry for 24hr dual pH probe. Pt has chronic cough, [facility] pulmonary referral asking for pH probe study with impedance to evaluate for gastric aspirat ion. Hx sinus surgery . elephone Encounter - Com bs, Daniel - 12/06/2012 2:17 PM PDTFormatting of this note might be different from the origi nal. REFERRAL FOR REVIEW: Reviewing Provider: Keyla Dhillon RN [x]Internal Referral [] External Referral [] [facility]I Report Available Referring Diagnosis/Comments: 786.2 (ICD-9-CM) - Chronic cough "Dual probe with manometry. Assess for gastric aspiration" [] emergent []urgent [x]routine []Consultation []Colonoscopy []Flexible Sigmoidoscopy []EGD (Upper Endoscopy) [] Sm Bowel Enteroscopy []Capsule Endoscopy: []Small Bowel []ESO []Upper EUS []Lower EUS []ERCP [x]24HR ph Monitor []Esophageal Manometry []48HR ph Monitor []Esophageal Manometry []Esophageal Manometry []Anorectal Manometry []Other: Electronic Data: Last 1 Encounter BMI Readings: Date BMI 10/22/2012 23.22 kg/m2 Patient Active Problem List Diagnosis Atrial tachycardia 427.89 Carcinoma in Situ of Breast Acquired Absence of Breast Nausea with Vomiting Encounter for Antineoplastic Chemotherapy Lymphedema Osteopenia Breast Cancer Dyspnea Sjogren's Syndrome Other Pulmonary Embolism and Infarction Thyroid nodule Skin lesion History of DVT (deep vein thrombosis) Deformity and disproportion of reconstructed breast Extrinsic asthma, unspecified Current Outpatient Prescriptions Medication Sig atenolol 50 mg Oral Tablet Take 25 mg by mouth two times daily. 1/2 tablet twice daily budesonide (PULMICORT FLEXHALER) 180 mcg/actuation Inhalation Aerosol Powdr Breath Acti vated Inhale 3 Puffs two [...] once daily. fluticasone (FLONASE) 50 mcg/actuation Nasal [place], Suspension Instill 1 [place] into eac h nostril two times daily. Glucosamine 1,000 mg Oral Tablet one daily HYDROcodone-acetaminophen (VICODIN) 5-500 mg Oral tablet Take 1 Tab by mouth every four hours as needed (for pain.). Not to exceed 6 tablets per any 24 hour period. (Not to exceed 3250 mg of acetaminophen from all products per 24 hour period.) LORAZEPAM 1 mg Oral tablet 0.5 Tabs Q HS PRN. Methylcellulose, Laxative, (CITRUCEL) Oral Powder Take by mouth. MULTIVITAMIN OR one daily potassium chloride SR 20 mEq Oral tablet,ER particles/crystals Take 1 Tab by mouth once daily. rabeprazole (ACIPHEX) 20 mg Oral Tablet, Delayed Release (E.C.) Take 20 mg by mouth wyatt ry twelve hours. Vitamin A-Vitamin C-Vit E-Min (ANTIOXIDANT FORMULA) Oral [...] distress. Triamterene-Hydrochlorothiazid BREAST LUMPS Tape Adherent Rash Past Medical History Diagnosis Date Sjogrens syndrome 1995 Fibromyalgia 1995 Mitral valve prolapse 1989 GERD (gastroesophageal reflux disease) 1995 Asthma 1999 TMJ (dislocation of temporomandibular joint) Fibrocystic disease of breast 1979 Diverticul disease small and large intestine, no perforati or abscess Skin cancer back Small bowel obstruction 07/20,10/19,02/19 Atrial tachycardia 07/20 Bursitis 2006 Plantar fascial fibromatosis 2007 plantar fascial tear Osteopenia 12/30/2007 Breast cancer 02/2007 s/p chemo with taxotere/cytoxan Shingles Difficult intravenous access Atrial fibrillation 05/2012 assoc with vomiting and diarrhea Pulmonary embolus 09/2008 Deep vein thrombosis of lower extremity Past Surgical History Procedure Laterality Date Ectopic [...] [facility] ablation 12/16/2004,09/21/2005 Dr. Fuentes, [facility] Mastectomy Biopsy / excision / dissection axillary node Lab Results Component Value Date WBC 6.3 06/17/2012 HB 15.1 06/17/2012 HCT 45.4 06/17/2012 PLT 245 06/17/2012 MCV 90.6 06/17/2012 RDW 13.9 06/17/2012 INRPT 1.1 06/17/2012 NA 139 06/17/2012 K 4.5 06/17/2012 CL 103 06/17/2012 BICARB 27 06/17/2012 BUN 10 06/17/2012 CR 0.86 06/17/2012 GLU 92 06/17/2012 CA 9.7 06/17/2012 AST 34 06/17/2012 ALT 53 06/17/2012 AP 57 06/17/2012 TBILI 0.7 06/17/2012 TP 6.5 06/17/2012 ALB 4.1 06/17/2012 DIRBILI 0.15 06/17/2012 documented in this encounter Plan of Treatment Not on filedocumented as of this encounter Visit Diagnoses Not on filedocumented in this encounter
--- OUTSIDE RECORDS SUMMARY | ~2020-05-04 | XMS | Encounter Summary ---
Demographics + + + | Address | [address] | | | [place] [address] | + + + | Home Phone | | + + + | Preferred Language | Unknown | + + + | Marital Status | | + + + | Protestant Affiliation | CHR | + + + | Race | White | + + + | Ethnic Group | Not or | + + + Author + + + | Author | [facility] | + + + | Organization | [facility] | + + + | Address | Unknown | + + + | Phone | Unavailable | + + + Support + + + + + | Name | Relationship | Address | Phone | + + + + + | Gene Gee | ECON | [address] | | | | | [place], | | | | | [place] [address] | | + + + + + Care Team Providers + +------+ + | Care Plastic Mixer Name | Role | Phone | + +------+ + | Antony Ribera MD | PCP | | + +------+ + Encounter Details +--------+ + + + + | Date | Type | Department | Care Team | Description | +--------+ + + + + | 06/23/ | Documentati | [facility] | Jason, | | | 2010 | on | Center at [facility] [address] | Sheila Garcia MD | | | | | [address] | [address] | | | | | for Health and | [place], [place] | | | | | [facility] | [address] | | | | | [place], [place] | [phone] | | | | | [address] | | | | | | [phone] | | | +--------+ + + + [...]
--- OUTSIDE RECORDS SUMMARY | ~2020-05-04 | XMS | Encounter Summary ---
Demographics + + + | Address | [address] | | | [place] [address] | + + + | Home Phone | | + + + | Preferred Language | Unknown | + + + | Marital Status | | + + + | Islam Affiliation | CHR | + + + [...] + | Gene Gee | ECON | [address] | | | | | [place], | | | | | [place] [address] | | + + + + + Care Team Providers + +------+ + | Care Cartography Technician Name | Role | Phone | + +------+ + | Antony Ribera MD | PCP | | + +------+ + Reason for Visit + + + | Reason | Comments | + + + | On Treatment Visit | EVRF with phleb of left leg | | (OTV) | | + + + Consult to [place] (Routine) +--------+--------+ + + + + | Status | Reason | Specialty | Diagnoses / | Referred By | Referred To | | | | | Procedures | Contact | Contact | +--------+--------+ + + + + | Closed | | Vascular | Diagnoses | Reyes, | Reyes, | | | | Surgery | Varicose | MD Red | MD Red | | | | | veins of | [address] | [address] | | | | | lower | Anthony | Anthony Lipscomb | | | | | extremities | [address] | [address] [place], | | | | | with other | [place], [place] | [place] | | | | | complication | [id number] | [address] | | | | | s | Phone: | Phone: | | | | | Procedures | [phone] | [phone] | | | | | REQUEST TO | Fax: | Fax: | | | | | SURGERY | [phone] | [phone] | | | | | SOLUTION STRATEGIST | | | +--------+--------+ + + + + Encounter Details +--------+ + + + + | Date | Type | Department | Care Team | Description | +--------+ + + + + | 08/24/ | Procedure | Vascular Surgery | Red Greer MD | On Treatment Visit | | 2009 | | Vein Clinic at [facility] | [address] | (OTV) (EVRF with | | | | [address] | [facility], | phleb of left leg ) | | | | [facility] | [place] [address] | | | | | and Healing, | [phone] | | | | | Building | | | | | | Floor [place], [place] | | | | | | [address] | | | | | | [phone] | | | +--------+ + + + [...] encounter Progress Notes Red Greer MD - 08[facility]24[facility]2009 11[facility] PROCEDURE NOTE PRE-PROCEDURE DIAGNOSIS: Symptomatic left lower extremity varicose veins. POST-PROCEDURE DIAGNOSIS: Same PROCEDURE: 1. Endovenous radiofrequency ablation of the left great saphenous vein with the VNUS Closur eFast catheter 2. Microphlebectomy of the left thigh and calf varicose veins using 18 microphlebectomy inc isions. SURGEON: Red Greer MD CLINICAL INDICATIONS: Ms. Flynn is a 63 y.o. female with symptomatic left thigh, calf, and ankle varicose veins. A standing venous reflux duplex demonstrated severe reflux involving t he left great saphenous vein. I had an extensive PARQ conference with the patient, and the r isks for deep venous thrombosis (1%), nerve injury, recurrence of varicose veins, hematoma, and infection were discussed. All questions were answered and Ms. Flynn wished to proceed. OPERATIVE FINDINGS: The left great saphenous vein was ablated with a total of 5 cycles gogo dean, over a distance of 24 cm. After completion of the procedure, the left common femoral ve in was still compressible and patent. The left thigh, calf, and ankle varicose veins were ex cised using a total of 18 stab incisions. PROCEDURE IN DETAIL: The patient was correctly identified and the surgical site was confirmed. Prior to the proc edure, the varicose veins were marked with the patient in the standing position, using an in delible marker. The patient was placed in the supine position, and the left lower extremity was prepped and draped in the usual sterile fashion. The RF catheter was placed on the steri le field, flushed, and wiped down, and connected by a sterile cable. The patient was placed in the reverse-Trendelenburg position and local anesthesia was insti lled in the skin overlying the access site. The skin incision was made overlying the identif ied and mapped great saphenous vein entry site. The vein was accessed using ultrasound mely nce and the Seldinger technique, a guide wire was introduced through the needle, which was t hen exchanged over the guide wire for a 7 Fr sheath. The RF catheter was placed into the vei n through the sheath. Ultrasound imaging was used to place the catheter tip 2 cm distal to t he sapheno-femoral junction. Of note, there appeared to be a web in the proximal left saphen ofemoral junction, about 2cm distal to the junction, and the RF catheter would not even pass above this level. After the RF catheter position was verified by ultrasound, tumescent anesthesia was infiltr ated, surrounding the entire length of the saphenous vein. Under direct external compression along the length of the treated segment, RF energy was applied. The vein was segmentally ab lated by heating 7cm segments, sequentially. The most proximal segment was treated twice as per protocol. Device temperature was maintained at 120 degrees Celcius, with an initial audelia r level of 40W, dropping to below 20W for each treatment. After the RF ablation was completed, tumsescent anesthetic was injected surrounding the pre viously marked varicos veins. A total of 18 microphlebectomy incisions were made using a #11 blade. Segments of varicose veins were sequentially removed using phlebectomy hooks. The in cisions were closed with mastisol and steri-strips. A pressure dressing was applied. Total vein length treated 24cm Total cycles of RF 5 Complications: none Specimens: none sent RED GREER MD VASCULAR SURGERY VEIN CLINIC [facility] Cecil Jeffreyraquel Mailcode: Op11 [facility], 5th Floor [facility] [address] documented in this enco unter Procedure Notes Other, Faculty - 09/01/2009 9:05 AM PST documented in t his encounter Miscellaneous Notes Scan - Other, Faculty - 09/06/2009 12:36 PM PST documented in t his encounter Plan of Treatment + + +--------+ + + | Name | Type | Priori | Associated Diagnoses | Order Schedule | | | | ty | | | + + +--------+ + + | [place] STAB PHLEBOTOMY | Procedures | Routin | Varicose veins of | Ordered: 08/24/2009 | | VEINS-EXTREM 10-20 | | e | lower extremities | | | | | | with other | | | | | | complications | | + + +--------+ + + | [place] ENDOVENOUS RF, | Procedures | Routin | Varicose veins of | Ordered: 08/24/2009 | | 1ST VEIN | | e | lower extremities | | | | | | with other | | | | | | complications | | + + +--------+ + + documented as of this encounter Visit Diagnoses + + | Diagnosis | + + | Varicose veins of lower extremities with other complications - Primary | + + documented in this encounter"
--- OUTSIDE RECORDS SUMMARY | ~2020-05-04 | XMS | Encounter Summary ---
Demographics + + + | Address | [address] | | | [place] [address] | + + + | Home Phone | | + + + | Preferred Language | Unknown | + + + | Marital Status | | + + + | Religion Affiliation | CHR | + + + [...] + | Gene Gee | ECON | [address] | | | | | [place], | | | | | [place] [address] | | + + + + + Care Team Providers + +------+ + | Care Staff Genetic Counselor Name | Role | Phone | + +------+ + | Alec Hill MD | PCP | | + +------+ + Encounter Details +--------+ + + + + | Date | Type | Department | Care Team | Description | +--------+ + + + + | 03/19/ | Hospital | Registration 3181 | [facility], | | | 2006 | Activity | [address] | [address] | | | | | [address] Mailcode: [id number] | [place], [place] | | | | | [place], [place] | [address] | | | | | [address] | [phone] | | | | | [phone] | | | +--------+ + + + [...] + | CBC ONLY | Routin | 03/20/2007 | | Results for this | | | e | 7:42 AM | | procedure are in the | | | | PDT | | results section. | + +--------+ + + + documented in this encounter Results CBC ONLY WITH PLATELET (03/20/2007 7:42 AM PDT) + + + + + + | Component | Value | Ref Range | Performed | Pathologist | | | | | At | Signature | + + + + + + | WHITE CELL | 7.8 | 4.4 - 11.0 K/cu | [facility] | | | COUNT | | mm | DEPARTMENT | | | | | | OF | | | | | | PATHOLOGY | | + + + + + + | RED CELL | 3.84 (L) | 4.00 - 5.20 | [facility] | | | COUNT | | M/cu mm | DEPARTMENT | | | | | | OF | | | | | | PATHOLOGY | | + + + + + + | HEMOGLOBIN | 11.9 (L) | 12.0 - 16.0 | [facility] | | | | | g/dL | DEPARTMENT | | | | | | OF | | | | | | PATHOLOGY | | + + + + + + | HEMATOCRIT | 34.6 (L) | 36.0 - 46.0 % | [facility] | | | | | | DEPARTMENT | | | | | | OF | | | | | | PATHOLOGY | | + + + + + + | MCV | 90.0 | 80.0 - 96.0 fL | [facility] | | | | | | DEPARTMENT | | | | | | OF | | | | | | PATHOLOGY | | + + + + + + | MCHC | 34.4 | 33.4 - 35.5 | [facility] | | | | | g/dL | DEPARTMENT | | | | | | OF | | | | | | PATHOLOGY | | + + + + + + | RDW | 12.1 | 11.5 - 15.0 % | [facility] | | | | | | DEPARTMENT | | | | | | OF | | | | | | PATHOLOGY | | + + + + + + | PLATELET | 127 (L) | 150 - 400 K/cu | [facility] [...] | + + + + + | [facility] DEPARTMENT OF | [address] | [place] [address] | | | PATHOLOGY | [address] | | | + + + + + | [facility] | [address] | [place] [address] | | | PATHOLOGY | [address] | | | + + + + + documented in this encounter Visit Diagnoses Not on filedocumented in this encounter"
--- OUTSIDE RECORDS SUMMARY | ~2020-05-04 | XMS | Encounter Summary ---
Demographics + + + | Address | [address] | | | [place] [address] | + + + | Home Phone | | + + + | Preferred Language | Unknown | + + + | Marital Status | | + + + | Rastafari Affiliation | CHR | + + + | Race | White | + + + | Ethnic Group | Not or | + + + Author + + + | Author | [facility] | + + + | Organization | [facility] | + + + | Address | Unknown | + + + | Phone | Unavailable | + + + Support + + + + + | Name | Relationship | Address | Phone | + + + + + | Gene Gee | ECON | [address] | | | | | [place], | | | | | [place] [address] | | + + + + + Care Team Providers + +------+ + | Care Parts Product Analyst Name | Role | Phone | + +------+ + PCP | Unavailable | + +------+ + Encounter Details +--------+ + + + + | Date | Type | Department | Care Team | Description | +--------+ + + + + | 07/19/ | Results | Liver Transplant | Enzo Arana, | | | 2004 | Only | at [facility] [address] | MD | | | | | [address] | | | | | | Physician's | | | | | | [place], [address] [place] [address] | | | | | | [place], [place] | | | | | | [address] | | | | | | [phone] | | | +--------+ + + + [...] CT PELVIS W IV | Routin | 07/20/2004 | | Results for this | | CONTRAST | e | 11:20 AM | | procedure are in the | | | | PST | | results section. | + +--------+ + + + | CT ABDOMEN W IV | Routin | 07/20/2004 | | Results for this | | CONTRAST | e | 11:20 AM | | procedure are in the | | | | PST | | results section. | + +--------+ + + + | X-RAY UGI W SMALL | Routin | 07/19/2004 | | Results for this | | BOWEL W MX SERIAL | e | 3:45 PM | | procedure are in the | | | | PST | | results section. | + +--------+ + + + | X-RAY ABD ACUTE 3 | Routin | 07/19/2004 | | Results for this | | VIEWS (2 V ABD & 1 V | e | 8:58 AM | | procedure are in the | | CXR) | | PST | | results section. | + +--------+ + + + documented in this encounter Results CT PELVIS W CONTRAST (07/20/2004 11:20 AM PST) + + + + + + | Component | Value | Ref Range | Performed | Pathologist | | | | | At | Signature | + + + + + + | CT PELVIS W | Radiologist 1: FRED, | | | | | CONTRAST | SHARIFA Nails JR., | | | | | | M.DJose-Radiologist 2: | | | | | | MABEL DALE, | | | | | | EXAM: Contrast | | | | | | enhanced CT scan of the | | | | | | abdomen and pelvis | | | | | | COMPARISON: Small bowel | | | | | | follow-through, 07/19/04 | | | | | | HISTORY: Findings on | | | | | | small bowel | | | | | | follow-through | | | | | | concerning forposterior | | | | | | stomach mass. Rule out | | | | | | obstruction. TECHNIQUE: | | | | | | 75 cc of omnipaque | | | | | | 300 was adminstered as | | | | | | well aspositive oral | | | | | | contrast. Contigious 5 | | | | | | mm images were | | | | | | obtainedthrough | | | | | | theabdomen and pelvis. | | | | | | FINDINGS: The lung | | | | | | bases are clear | | | | | | bilaterally. There is | | | | | | nopneumothorax or | | | | | | pleural effusion. | | | | | | Multiple low density | | | | | | hepatic lesions are | | | | | | present ranging in | | | | | | sizeis from 4 mm to 5 x | | | | | | 3 cm and consistent with | | | | | | biopsy proven | | | | | | cysticlesions. A | | | | | | feeding tube is | | | | | | present with tip in the | | | | | | gastricfundus. The | | | | | | previously mentioned | | | | | | apparent soft tissue | | | | | | gastricmucosal mass is | | | | | | actually a loop of small | | | | | | bowel that is | | | | | | causingextrinsic | | | | | | compression on the | | | | | | stomach. No stomach | | | | | | mass is present.Multiple | | | | | | dilated loops of | | | | | | proximal small bowel | | | | | | present with thebest | | | | | | candidate for transition | | | | | | point seen in the right | | | | | | lowerquadrant on image | | | | | | 51. The distal small | | | | | | bowel is collapsed. | | | | | | Thegallbladder has | | | | | | been surgically removed. | | | | | | The spleen, | | | | | | adrenalglands, kidneys | | | | | | and pancrease are within | | | | | | normal limits. Pelvic | | | | | | findings: Most of the | | | | | | colon has been a | | | | | | resected and | | | | | | theremaining pelvic | | | | | | bowel is within normal | | | | | | limits. | | | | | | Nolymphadenopathy is | | | | | | seen. Free fluid is | | | | | | present in the | | | | | | cul-de-sac. No suspect | | | | | | bone lesions are | | | | | | present. IMPRESSION: 1 | | | | | | Dilated loops of | | | | | | proximal small bowel | | | | | | concerning for small | | | | | | bowelobstruction. 2. | | | | | | Proximal small bowel | | | | | | loop of an extrinsic | | | | | | impression on thestomach | | | | | | but no gastric mass is | | | | | | present 3. Multiple | | | | | | low density hepatic | | | | | | masses consistent with | | | | | | biopsyproven cystics 4. | | | | | | Status post | | | | | | cholecystectomy 5. | | | | | | Status post colonic | | | | | | resection 6. Free | | | | | | fluid in the cul-de-sac. | | | | + + + + + + + + | Specimen | + + | | + + + +---------+ + + | Performing | Address | City/State/Zipcode | Phone Number | | Organization | | | | + +---------+ + + | [facility] | | | | | [facility]IOLOG[facility] | | | | + +---------+ + + CT ABDOMEN W CONTRAST (07/20/2004 11:20 AM PST) + + + + + + | Component | Value | Ref Range | Performed | Pathologist | | | | | At | Signature | + + + + + + | CT ABDOMEN | Radiologist 1: FRED, | | | | | W CONTRAST | SHARIFA Nails JR., | | | | | | MEli-Radiologist 2: | | | | | | MABEL DALE, | | | | | | EXAM: Contrast | | | | | | enhanced CT scan of the | | | | | | abdomen and pelvis | | | | | | COMPARISON: Small bowel | | | | | | follow-through, 07/19/04 | | | | | | HISTORY: Findings on | | | | | | small bowel | | | | | | follow-through | | | | | | concerning forposterior | | | | | | stomach mass. Rule out | | | | | | obstruction. TECHNIQUE: | | | | | | 75 cc of omnipaque | | | | | | 300 was adminstered as | | | | | | well aspositive oral | | | | | | contrast. Contigious 5 | | | | | | mm images were | | | | | | obtainedthrough | | | | | | theabdomen and pelvis. | | | | | | FINDINGS: The lung | | | | | | bases are clear | | | | | | bilaterally. There is | | | | | | nopneumothorax or | | | | | | pleural effusion. | | | | | | Multiple low density | | | | | | hepatic lesions are | | | | | | present ranging in | | | | | | sizeis from 4 mm to 5 x | | | | | | 3 cm and consistent with | | | | | | biopsy proven | | | | | | cysticlesions. A | | | | | | feeding tube is | | | | | | present with tip in the | | | | | | gastricfundus. The | | | | | | previously mentioned | | | | | | apparent soft tissue | | | | | | gastricmucosal mass is | | | | | | actually a loop of small | | | | | | bowel that is | | | | | | causingextrinsic | | | | | | compression on the | | | | | | stomach. No stomach | | | | | | mass is present.Multiple | | | | | | dilated loops of | | | | | | proximal small bowel | | | | | | present with thebest | | | | | | candidate for transition | | | | | | point seen in the right | | | | | | lowerquadrant on image | | | | | | 51. The distal small | | | | | | bowel is collapsed. | | | | | | Thegallbladder has | | | | | | been surgically removed. | | | | | | The spleen, | | | | | | adrenalglands, kidneys | | | | | | and pancrease are within | | | | | | normal limits. Pelvic | | | | | | findings: Most of the | | | | | | colon has been a | | | | | | resected and | | | | | | theremaining pelvic | | | | | | bowel is within normal | | | | | | limits. | | | | | | Nolymphadenopathy is | | | | | | seen. Free fluid is | | | | | | present in the | | | | | | cul-de-sac. No suspect | | | | | | bone lesions are | | | | | | present. IMPRESSION: 1 | | | | | | Dilated loops of | | | | | | proximal small bowel | | | | | | concerning for small | | | | | | bowelobstruction. 2. | | | | | | Proximal small bowel | | | | | | loop of an extrinsic | | | | | | impression on thestomach | | | | | | but no gastric mass is | | | | | | present 3. Multiple | | | | | | low density hepatic | | | | | | masses consistent with | | | | | | biopsyproven cystics 4. | | | | | | Status post | | | | | | cholecystectomy 5. | | | | | | Status post colonic | | | | | | resection 6. Free | | | | | | fluid in the cul-de-sac. | | | | + + + + + + + + | Specimen | + + | | + + + +---------+ + + | Performing | Address | City/State/Zipcode | Phone Number | | Organization | | | | + +---------+ + + | [facility] | | | | | [facility]IOLOG[facility] | | | | + +---------+ + + UGI W SMALL BOWEL W MX SERIAL (07/19/2004 3:45 PM PST) + + + + + + | Component | Value | Ref Range | Performed | Pathologist | | | | | At | Signature | + + + + + + | UGI W SMALL | Radiologist 1: SADAF, | | | | | BOWEL W MX | Declan BERKOWITZSMALL BOWEL | | | | | SERIAL | FOLLOW THROUGH: | | | | | | 07/19/2004 Dictated | | | | | | 07/19/2004 Initial | | | | | | machine builder film demonstrates | | | | | | diffuse distention of | | | | | | small bowel,finding | | | | | | unchanged from the | | | | | | previous study earlier | | | | | | this date. | | | | | | Contrast(Gastrografin) | | | | | | was then injected to | | | | | | the existing nasogastric | | | | | | tubeunder fluoroscopic | | | | | | visualization with | | | | | | multiple radiographs | | | | | | obtainedover the ensuing | | | | | | 1 hour and 20 minutes. | | | | | | The stomach is abnormal | | | | | | with an approximately 4 | | | | | | cm apparent softtissue | | | | | | submucosal mass evident | | | | | | in the posterior wall of | | | | | | the stomach.Although | | | | | | his may represent an | | | | | | impression from | | | | | | extrinsic mass, | | | | | | itappears to represent | | | | | | an intrinsic mural mass | | | | | | distorting the | | | | | | overlyingmucosa. This | | | | | | could be secondary to a | | | | | | gastric wall hematoma | | | | | | but morelikely | | | | | | represents a tumor | | | | | | within the wall such as | | | | | | leiomyoma. CT | | | | | | wouldprovide further | | | | | | clarification. There | | | | | | is no evidence of | | | | | | ulceration. Contrast | | | | | | emptied rapidly from the | | | | | | stomach and slowly | | | | | | progressedthrough the | | | | | | small bowel. At the | | | | | | end of the study (80 | | | | | | minutes), thereis | | | | | | considerable dilution of | | | | | | the Gastrografin | | | | | | rendering the | | | | | | studynondiagnostic. | | | | | | Absorbed contrast is | | | | | | evident in the urinary | | | | | | bladder.However, the | | | | | | point of obstruction is | | | | | | beyond the column, i.e. | | | | | | withinthe ilium. | | | | | | IMPRESSION: 1. | | | | | | Findings consistent | | | | | | with small bowel | | | | | | obstruction involving | | | | | | theileum. 2. Findings | | | | | | concerning for a mural | | | | | | mass within the | | | | | | posterior wall ofthe | | | | | | stomach. CT and/or | | | | | | endoscopy is suggested | | | | | | for | | | | | | furtherclarification. | | | | | | These findings were | | | | | | discussed with | | | | | | Sindy at the time of | | | | | | thisdictation. END OF | | | | | | IMPRESSION: | | | | + + + + + + + + | Specimen | + + | | + + + +---------+ + + | Performing | Address | City/State/Zipcode | Phone Number | | Organization | | | | + +---------+ + + | [facility] | | | | | RADIOLOGY | | | | + +---------+ + + ABD ACUTE 3 VIEWS & PA CHEST (07/19/2004 8:58 AM PST) + + + + + + | Component | Value | Ref Range | Performed | Pathologist | | | | | At | Signature | + + + + + + | ABD ACUTE 3 | Radiologist 1: SADAF, | | | | | VIEWS (2 V | Declan BERKOWITZABDOMINAL | | | | | ABD & 1 V | SERIES: 07/19/2004 at | | | | | CXR) | 0900 hours Dictated | | | | | | 07/19/2004 FINDINGS: | | | | | | AP, supine, and erect | | | | | | views of the abdomen as | | | | | | well as a PAview of the | | | | | | chest were obtained. | | | | | | In the chest, the | | | | | | lungs are free | | | | | | ofevidence of active | | | | | | disease and the cardiac | | | | | | silhouette normal. | | | | | | Anasogastric tube is | | | | | | evident traversing the | | | | | | esophagus and coiled in | | | | | | thegastric fundus. In | | | | | | the abdomen, multiple | | | | | | air/fluid levels are | | | | | | again evident on | | | | | | theerect film, findings | | | | | | consistent with a distal | | | | | | small bowel | | | | | | obstruction.There has | | | | | | been a very minimal | | | | | | decreased in the degree | | | | | | of small boweldistention | | | | | | when compared with the | | | | | | previous day's study. | | | | | | There is noevidence of | | | | | | bowel edema. | | | | | | IMPRESSION: Mid to | | | | | | distal small bowel | | | | | | obstruction. END OF | | | | | | IMPRESSION: | | | | + + + [...]
--- OUTSIDE RECORDS SUMMARY | ~2020-05-04 | XMS | Encounter Summary ---
Demographics + + + | Address | [address] | | | [place] [address] | + + + | Home Phone | | + + + | Preferred Language | Unknown | + + + | Marital Status | | + + + | Yazidi Affiliation | CHR | + + + [...] + | Gene Gee | ECON | [address] | | | | | [place], | | | | | [place] [address] | | + + + + + Care Team Providers + +------+ + | Care Investment Representative Name | Role | Phone | + +------+ + | Alec Hill MD | PCP | | + +------+ + Encounter Details +--------+ + + + + | Date | Type | Department | Care Team | Description | +--------+ + + + + | 06/20/ | Ancillary | Registration [address] | Stevan Velazquez, | | | 2006 | Registratio | [facility] | [address] | | | | n | [address] Mailcode: [id number] | [place], [place] | | | | | [place], [place] | [address] | | | | | [address] | [phone] | | | | | [phone] | | | +--------+ + + + [...]
--- OUTSIDE RECORDS SUMMARY | ~2020-05-04 | XMS | Encounter Summary ---
Demographics + + + | Address | [address] | | | [place] [address] | + + + | Home Phone [...] + | Gene Gee | ECON | [address] | | | | | [place], | | | | | [place] [address] | | + + + + + Care Team Providers + +------+ + | Care Magnetic Prospecting Supervisor Name | Role | Phone | + +------+ + | Antony Ribera MD | PCP | | + +------+ + Reason for Visit + +--------+ + | Reason | Onset | Comments | | | Date | | + +--------+ + | Follow-up visit | 02/14/ | patient would like to know if she can be seen in | | | 2010 | Araceli, Patient had a cat scan with results being ok, | | | | please review notes and contact patient. | + +--------+ + Encounter Details +--------+ + + + + | Date | Type | Department | Care Team | Description | +--------+ + + + + | 02/14/ | Telephone | Pulmonary & | Sergio Smith | Follow-up visit | | 2010 | | Critical Care | MD Dianna | (patient would like | | | | Medicine at | | to know if she can | | | | Physicians [place] | | be seen in [facility], | | | | [address] | | Patient had a cat | | | | Loop Physician's | | scan with results | | | | [address], [address] | | being ok, please | | | | [place], [place] | | review notes and | | | | [address] | | contact patient.) | | | | [phone] | | | +--------+ + + + [...] Notes Telephone Encounter - Jorden Mccarty - 10/26/2014 1:28 PM PDTThis encounter has been admin istratively closed with the authorization of the [facility] Committee. elephone Encounter - Sergio Smith MD - 02/16/20 1:25 PM PDTReviewed chart. As long as her asthma remains controlled, it is fine for her to be seen in clinic after the first of the year. If she wants to be seen specifically in July, she will need to be seen by an alternative provider. Otherwise she can see me in late August or September. Please call patient to schedule follow up appointment. elephone Encounter - Tony Lopez - 02/14/2011 11 :58 AM PDT Reason for Call: Chief Complaint Patient presents with Follow-up visit patient would like to know if she can be seen in [facility], Patient had a cat scan with re sults being ok, please review notes and contact patient. Patient: Adriana Flynn: Home Phone Work Phone Last Telephone in [facility] was on 11/16/10 with Sergio Smith MD. No future appointments scheduled in Pulmonary Disease. Pharmacy Preferences: [facility] [address] [place] [address] [facility] [place] [address] [place], [place] [address] [facility] [address] [place] [address] Patient would like to know if she can be seen in [facility]. She is usually is yearly f/u vi sit patient. Patient had a cat scan in November with results being ok, please review notes and co ntact patient documented in this encoun ter Plan of Treatment Not on filedocumented as of this encounter Visit Diagnoses Not on filedocumented in this encounter"
--- OUTSIDE RECORDS SUMMARY | ~2020-05-04 | XMS | Encounter Summary ---
Demographics + + + | Address | [address] | | | [place] [address] | + + + | Home Phone [...] + | Gene Gee | ECON | [address] | | | | | [place], | | | | | [place] [address] | | + + + + + Care Team Providers + +------+ + | Care Office Rep Name | Role | Phone | + +------+ + | Antony Ribera MD | PCP | | + +------+ + Reason for Referral Diagnostic Testing (Routine) +--------+--------+ + + + + | Status | Reason | Specialty | Diagnoses / | Referred By | Referred To | | | | | Procedures | Contact | Contact | +--------+--------+ + + + + | Closed | | | Diagnoses | | Clint Dunhamc | | | | | Other | Katheryn | [facility] [address] | | | | | pulmonary | MD Bradley | [facility] | | | | | embolism and | [address] | | | | | infarction | [address] | Mailcode: | | | | | Procedures | [place], [place] | [address] | | | | | VASC LAB | [address] | Physician's | | | | | CHRONIC | Phone: | [place] | | | | | VENOUS STUDY | [phone] | [facility] [place] | | | | | W/DUPLEX | Fax: | [address] | | | | | [address] | [phone] | Phone: | | | | | | | [phone] | | | | | | | Fax: | | | | | | | [phone] | +--------+--------+ + + + + Encounter Details +--------+ + + + + | Date | Type | Department | Care Team | Description | +--------+ + + + + | 04/06/ | Hospital | Radiology/Imaging | | | | 2008 | Encounter | Lab at [facility] [address] | | [address] | [address] [facility], | | | | | | Building [address], | | | | | | Floor [facility] [place] | | | | | | [address] | | | | | | [phone] | | | +--------+ + + + [...] +---------+--------+ + documented as of this encounter Plan of Treatment Not on filedocumented as of this encounter Visit Diagnoses + + | Diagnosis | + + | Other pulmonary embolism and infarction | + + documented in this encounter"
--- OUTSIDE RECORDS SUMMARY | ~2020-05-04 | XMS | Encounter Summary ---
Demographics + + + | Address | [address] | | | [place] [address] | + + + | Home Phone [...] + + + | Author | [facility] | + + + | Organization | [facility] | + + + | Address | Unknown | + + + | Phone | Unavailable | + + + Support + + + + + | Name | Relationship | Address | Phone | + + + + + | Gene Gee | ECON | [address] | | | | | [place], | | | | | [place] [address] | | + + + + + Care Team Providers + +------+ + | Care Race Engine Builder Name | Role | Phone | + +------+ + | Antony Ribera MD | PCP | | + +------+ + Reason for Visit + +--------+ + | Reason | Onset | Comments | | | Date | | + +--------+ + | Medication Question | 09/17/ | | | | 2007 | | + +--------+ + Encounter Details +--------+ + + + + | Date | Type | Department | Care Team | Description | +--------+ + + + + | 09/17/ | Telephone | Hematology/Medical | Stevan Velazquez, | Medication Question | | 2007 | | Oncology at [facility] | MD [address] | | | | | [address] | [place], [place] | | | | | Mailcode: 7 | [address] | | | | | [facility] | [phone] | | | | | and [place], | | | | | | [facility] | | | | | | Floor [place], [place] | | | | | | [address] | | | | | | [phone] | | | +--------+ + + + [...] this encounter Miscellaneous Notes Telephone Encounter - Mireya Rene - 09/20/2007 4:39 PM PSTCalled and spoke with abena leyva. Sent recent note to Dr. Ribera with Dr. Velazquez's recommendations for f/u in regards to h er bone density. Informed patient Dr. Velazquez would like Dr. Ribera to inititate her care in [facility]. Patient confirmed she is taking plenty of calcium and vitamin D. Informeded patient to f/u with Dr. Ribera. ele phone Encounter - Stevan Velazquez - 09/18/2007 2:54 PM PSTI have sent our clinic notes to Collins Ribera' office. In the note, I specifically ask him to comment on Adriana's low bone density and raised the issue if we can try some different forms of bisphosphonate for Adriana. For raquel rosa, if Adriana had issues with fosamax before, perhaps we can try Boniva monthly. I pose that question to Dr. Ribera. Adriana needs to take calcium and Vit D as well. Her bone density is on the low side-- T score -2.1. We should do the best we can to ensure that we prevent f urther decrement in her bone density. Ask her to speak with Dr. Ribera' office thanks elephone Encounter - Rosalinda Palacios RN - 09/18/2007 2:48 PM PSTStarted Arimidex on 09/14/07 and was told to c all with an update today regarding any side effects she had. She is calling to report that she has had no side effects that she can tell. She would like to know if Dr. Velazquez has conta cted Dr. Ribera regarding medications she is to take for bone density. Will route this to Dr. Velazquez for his comments. TTelephone Encounter - Yuliana Austin - 09/18/2007 2:24 PM PSTUpdate on new medication. Please call. documented i n this encounter Plan of Treatment Not on filedocumented as of this encounter Visit Diagnoses Not on filedocumented in this encounter"
--- OUTSIDE RECORDS SUMMARY | ~2020-05-04 | XMS | Encounter Summary ---
Demographics + + + | Address | [address] | | | [place] [address] | + + + | Home Phone [...] + + + | Author | [facility] | + + + | Organization | [facility] | + + + | Address | Unknown | + + + | Phone | Unavailable | + + + Support + + + + + | Name | Relationship | Address | Phone | + + + + + | Gene Gee | ECON | [address] | | | | | [place], | | | | | [place] [address] | | + + + + + Care Team Providers + +------+ + | Care Plug Maker Name | Role | Phone | + +------+ + | Antony Ribera MD | PCP | | + +------+ + Reason for Visit + + + | Reason | Comments | + + + | Transfer of Care | | + + + Encounter Details +--------+---------+ + + + | Date | Type | Department | Care Team | Description | +--------+---------+ + + + | 02/26/ | Office | Pulmonary & | Pete Gee, | Asthma | | 2011 | Visit | Critical Care | | | | | | Medicine at | | | | | | [facility] | | | | | | [address] | | | | | | [facility] | | | | | | [facility], 3rd Floor | | | | | | [place], [place] | | | | | | [address] | | | | | | [phone] | | | +--------+---------+ + + + [...] + + + | Blood Pressure | 154/84 | 02/27/2012 4:45 PM | | | | | PDT | | + + + + + | Pulse | 96 | 02/27/2012 4:45 PM | | | | | PDT | | + + + + + | Temperature | 36.8 C (98.2 F) | 02/27/2012 4:45 PM | | | | | PDT | | + + + + + | Respiratory Rate | 20 | 02/27/2012 4:45 PM | | | | | PDT | | + + + + + | Oxygen Saturation | 97% | 02/27/2012 4:45 PM | | | | | PDT | | + + + + + | Inhaled Oxygen | - | - | | | Concentration | | | | + + + + + | Weight | 65.1 kg (143 lb 8 | 02/27/2012 4:45 PM | | | | oz) | PDT | | + + + + + | Height | 167.6 cm (5' 6") | 02/27/2012 4:45 PM | | | | | PDT | | + + + + + | Body Mass Index | 23.16 | 02/27/2012 4:45 PM | | | | | PDT | | + + + + + documented in this encounter Patient Instructions Patient Instructions Pete Gee MD - 02/27/2012 4:34 PM PDT1) Continue Pulmicort 2 puff twice daily for control of asthma 2) Stop Spiriva 3) If your symptoms are not well controlled call me and we will start Singulair 4) start Flonase for nasal drip symptoms - one spray in each nostril twice daily - each nos tril 5) Consider referral to GI for evaluation of acid reflux 6) Use albuterol as needed for acute symptoms of wheezing or shortness of breath 7) Follow up in 6 months Pete Gee MD Pulmonary and Critical Care Fellow documented in this encounter Progress Notes Virginia Horton MD - 03/04/2012 5:43 PM PDT66F with asthma and seasonal allergies. At last visit, pt's symptoms were under very good control and her ICS dose was decreased. Sinc e then, she has had two exacerbation. Given this evidence of worsening control, we will res tart her ICS at this prior, higher dose and continue prn albuterol. Pt also needs improved treatment of her rhinitis (saline and steroid spray). She will contact us with new/worsenin g symptoms. I performed a history and physical examination of the patient and discussed his management with the fellow. I reviewed the fellow's note and agree with the documented findings and pl an of care. VIRGINIA HORTON MD [facility] [address] [place] [phone] aPete kruger MD - 02/27/2012 4:27 PM PDT Pulmonary Clinic Follow Up Visit Date: 02/27/12 Primary Care Provider: Latosha Ribera MD [facility] [address] [place] [address], [address] [place] [address] Problem List: 1. Asthma -- on inhaled Pulmicort -- cannot use long acting beta agonist due to history of episodes of SVT with use 2. Multiple sub 5 mm pulmonary nodules on chest CT since 2008 -- patient elected not to continue with surveillance imaging after 11/2010 due to radiation exposure 3. Pulmonary embolism, identified on CTA 09/17/08, s/p warfarin x 6 months 4. Sjogren's syndrome 5. GERD 6. Season allergies 7. History of breast cancer (dx 02/19, [id number] s/p mastectomy & chemo, on Arimidex) 8. Mitral valve prolapse 9. Supraventricular tachycardia, on dofetilide Subjective: The patient is a 66 y/o female with a history of seasonal allergies and asthma who presents to the pulmonary clinic for routine follow up evaluation of her asthma. When she was seen i september, her dose of pulmicort was reduced from two puff twice daily to one puff twice daily . Since the reduction in inhaled steroids, she has had two exacerbations of asthma requiring antibiotics and systemic steroids. The last one was a month ago. Since then she is back on two puff twice daily as well as Spiriva and feels close to her baseline except for persisten t rhinitis and sinus congestion symptoms. Current Outpatient Prescriptions Medication Sig anastrozole (ARIMIDEX) 1 mg Oral Tablet Take 1 Tab by mouth once daily. atenolol 50 mg Oral Tablet Take 25 mg by mouth two times daily. 1/2 tablet twice daily budesonide (PULMICORT FLEXHALER) 180 mcg/actuation Inhalation Aerosol Powdr Breath Acti vated Inhale 2 Puffs once daily. calcium citrate-vitamin [...] once daily. fluticasone (FLONASE) 50 mcg/actuation Nasal [place], Suspension Instill 1 [place] into eac h nostril two times daily. Glucosamine 1,000 mg Oral Tablet one daily Methylcellulose, Laxative, (CITRUCEL) Oral Powder Take by mouth. MULTIVITAMIN OR one daily potassium chloride SR 20 mEq Oral Tab Sust.Rel. Particle/Crystal Take 1 Tab by mouth on ce daily. Please dispense as K-dur- other preparations do not get absorbed properly rabeprazole (ACIPHEX) 20 mg Oral Tablet, Delayed Release (E.C.) Take 20 mg by mouth onc e daily. tiotropium (SPIRIVA WITH HANDIHALER) 18 mcg Inhalation Capsule, w/Inhalation Device Inh georgi 18 mcg once daily. tramadol (ULTRAM) 50 mg Oral Tablet Take 1 Tab by mouth every six hours as needed for m oderate pain. Vitamin A-Vitamin C-Vit E-Min (ANTIOXIDANT FORMULA) Oral Capsule take 1 capsule by oral route once daily with food VITAMIN D ORAL 2000 IU daily Past Social and Family History: No significant changes since last visit. Review of Systems: As above. All other systems negative or unchanged from previous visit. Visit Vitals Item Reading BP 154/84 Pulse 96 Temp (Src) 36.8 C (98.2 F) (Oral) RR 20 Ht 1.676 m (5' 6") Wt 65.091 kg (143 lb 8 oz) SpO2 97% BMI 23.16 kg/(m^2) Physical Exam: General: Pleasant female in no distress. No dyspnea with conversation. Speaks in full sente nces. SHANON: Normocephalic, PERRLA, EOMI, external ears without lesions. Nares: White discoloration on the posterior wall consistent with polyps bilaterally. Throat: Oropharynx clear without lesions. No evidence of thrush. Neck: Supple. No palpable lymphadenopathy. Lungs: Clear to auscultation bilaterally. No wheezing. Cardiac: Regular rate & rhythm. Extremities: Warm & well perfused. No clubbing, cyanosis or edema. Musculoskeletal: No obvious joint deformities noted. Neurologic: Exam grossly non-focal. Skin: No evidence of rash or skin changes. PULMONARY FUNCTION (no units) Date Value Range Status 05/03/2010 Final Value: Spirometry was performed: Spirometry results were the following: FVC=3.37 FVC% wsobisfrk=823 FEV1=2.14 FEV1% predicted=84 FEV1/FVC=64 FEF 25-75=0.86 FEF 25-75% predicted=40 PEF=6.86 PEF% rxivpuiqg=141 PFT's consistent with mild obstructive lung physiology Assessment: The patient is a very pleasant 66 y/o female who presents to the pulmonary clinic for [facility] follow up evaluation of her asthma. At the present time her asthma is classified as mild intermittent disease that is controlled on higher dose of inhaled steroids. She should cont inue budesonide two puff twice daily. I do not see an indication for long acting bronchodila tor and the use of Spiriva for asthma is not yet completely validated by data which has not looked at the senior living benefits of anticholinergics for asthma. I recommended that she stop s Spiriva at this time. I also do not see any indication for long acting beta agonist since she rarely uses albuterol except during acute exacerbations. Regarding her rhinisinusitis sy mptoms, she is currently using saline rinses and I will prescribe her nasal steroids as well , to use 2 to 3 months at a time to control symptoms. This may improve her asthma control as well. She will follow up in pulmonary clinic in 6 months or sooner as needed for acute issu es. The patient was evaluated and discussed with attending physician Dr. Horton who agrees with the above assessment and plan. Pete Gee MD Pulmonary and Critical Care Fellow Pager # [phone] documented in this encounter Plan of Treatment Not on filedocumented as of this encounter Procedures + +--------+ + + + | Procedure Name | Priori | Date/Time | Associated Diagnosis | Comments | | | ty | | | | + +--------+ + + + | ECG TRACING FOR | | 02/27/2012 | | Results for this | | STRESS | | 12:00 AM | | procedure are in the | | ECHOCARDIOGRAM | | PDT | | results section. | + +--------+ + + + documented in this encounter Results SPIROMETRY BEFORE / AFTER BRONCHODIL, PULM FUNCTION LAB (10/22/2012 12:08 PM PDT) + + + + + + | Component | Value | Ref Range | Performed | Pathologist | | | | | At | Signature | + + + + + + | FVC PRE | 2.69 | 3.30 Liters | [facility] | | | | | | SPECIAL | | | | | | DIAGNOSTICS | | | | | | - | | | | | | PULMONARY | | | | | | FUNCTION | | + + + + + + | FVC PRE | 82 | % | [facility] | | | (%REF) | | | SPECIAL | | | | | | DIAGNOSTICS | | | | | | - | | | | | | PULMONARY | | | | | | FUNCTION | | + + + + + + | FVC POST | 2.62 | 3.30 Liters | [facility] | | | | | | SPECIAL | | | | | | DIAGNOSTICS | | | | | | - | | | | | | PULMONARY | | | | | | FUNCTION | | + + + + + + | FVC POST | 79 | % | [facility] | | | (%REF) | | | SPECIAL | | | | | | DIAGNOSTICS | | | | | | - | | | | | | PULMONARY | | | | | | FUNCTION | | + + + + + + | FEV1 PRE | 1.75 | 2.51 Liters | [facility] | | | | | | SPECIAL | | | | | | DIAGNOSTICS | | | | | | - | | | | | | PULMONARY | | | | | | FUNCTION | | + + + + + + | FEV1 PRE | 70 | % | [facility] | | | (%REF) | | | SPECIAL | | | | | | DIAGNOSTICS | | | | | | - | | | | | | PULMONARY | | | | | | FUNCTION | | + + + + + + | FEV1 POST | 1.91 | 2.51 Liters | [facility] | | | | | | SPECIAL | | | | | | DIAGNOSTICS | | | | | | - | | | | | | PULMONARY | | | | | | FUNCTION | | + + + + + + | FEV1 POST | 76 | % | [facility] | | | (%REF) | | | SPECIAL | | | | | | DIAGNOSTICS | | | | | | - | | | | | | PULMONARY | | | | | | FUNCTION | | + + + + + + | FEV1/FVC | 65 | 76 % | [facility] | | | PRE | | | SPECIAL | | | | | | DIAGNOSTICS | | | | | | - | | | | | | PULMONARY | | | | | | FUNCTION | | + + + + + + | FEV1/FVC | 73 | 76 % | [facility] | | | POST | | | SPECIAL | | | | | | DIAGNOSTICS | | | | | | - | | | | | | PULMONARY | | | | | | FUNCTION | | + + + + + + | [id number]% | 0.89 | 2.07 L/sec | [facility] | | | PRE | | | SPECIAL | | | | | | DIAGNOSTICS | | | | | | - | | | | | | PULMONARY | | | | | | FUNCTION | | + + + + + + | [id number]% | 43 | % | [facility] | | | PRE (%REF) | | | SPECIAL | | | | | | DIAGNOSTICS | | | | | | - | | | | | | PULMONARY | | | | | | FUNCTION | | + + + + + + | [id number]% | 1.37 | 2.07 L/sec | [facility] | | | POST | | | SPECIAL | | | | | | DIAGNOSTICS | | | | | | - | | | | | | PULMONARY | | | | | | FUNCTION | | + + + + + + | [id number]% | 66 | % | [facility] | | | POST (%REF) | | | SPECIAL | | | | | | DIAGNOSTICS | | | | | | - | | | | | | PULMONARY | | | | | | FUNCTION | | + + + + + + | PEF PRE | 6.52 | 6.06 L/sec | [facility] | | | | | | SPECIAL | | | | | | DIAGNOSTICS | | | | | | - | | | | | | PULMONARY | | | | | | FUNCTION | | + + + + + + | PEF PRE | 108 | % | [facility] | | | (%REF) | | | SPECIAL | | | | | | DIAGNOSTICS | | | | | | - | | | | | | PULMONARY | | | | | | FUNCTION | | + + + + + + | PEF POST | 7.17 | 6.06 L/sec | [facility] | | | | | | SPECIAL | | | | | | DIAGNOSTICS | | | | | | - | | | | | | PULMONARY | | | | | | FUNCTION | | + + + + + + | PEF POST | 118 | % | [facility] | | | (%REF) | | | SPECIAL | | | | | | DIAGNOSTICS | | | | | | - | | | | | | PULMONARY | | | | | | FUNCTION | | + + + + + + | FIF50% PRE | 3.66 | L/sec | [facility] | | | | | | SPECIAL | | | | | | DIAGNOSTICS | | | | | | - | | | | | | PULMONARY | | | | | | FUNCTION | | + + + + + + | FIF50% POST | 3.24 | L/sec | [facility] | | | | | | SPECIAL | | | | | | DIAGNOSTICS | | | | | | - | | | | | | PULMONARY | | | | | | FUNCTION | | + + + + + + | PULMONARY | Name: LAUREN BAXTER | | [facility] | | | INTERPRETAT | ID# [id number] | | SPECIAL | | | ION | Date: | | DIAGNOSTICS | | | | 10/22/12 Age: 67 | | - | | | | Gender: | | PULMONARY | | | | Female | | FUNCTION | | | | Race: | | | | | | Height(in):Physician: | | | | | | VIRGINIA HORTON | | | | | | Supervisor Grips: | | | | | | ROSAS Shaw | | | | | | Diagnosis: Asthma 493.90 | | | | | | | | | | | | Occ Exposure: 2nd Hand | | | | | | Smoke | | | | | | | | | | | | Dyspnea | | | | | | Exercise: No Dyspnea | | | | | | Rest: No Cough: Yes | | | | | | | | | | | | Persistent: Yes | | | | | | Productive | | | | | | (cc): Smoker: No | | | | | | How | | | | | | Long: | | | | | | Cigarettes: No Quit: No | | | | | | | | | | | | | | | | | | Stopped: Order# | | | | | | [id number] | | | | | | | | | | | | Spirometry | | | | | | Ref | | | | | | Pre Pre | | | | | | Post Post | | | | | | Post | | | | | | | | | | | | Loyd % Ref | | | | | | Loyd % Ref | | | | | | % ChgFVC | | | | | | Liters 3.30 | | | | | | 2.69 82 | | | | | | 2.62 79 | | | | | | -3FEV1 | | | | | | Liters 2.51 | | | | | | 1.75 70 | | | | | | 1.91 76 | | | | | | 9FEV1/FVC % | | | | | | 76 65 | | | | | | | | | | | | [id number]% L/sec | | | | | | 2.07 0.89 | | | | | | 43 1.37 | | | | | | 66 | | | | | | [id number] L/sec | | | | | | 0.89 | | | | | | 1.34 | | | | | | | | | | | | 51PEF | | | | | | L/sec 6.06 | | | | | | 6.52 108 | | | | | | 7.17 118 | | | | | | [id number]% L/sec | | | | | | 3.66 | | | | | | | | | | | | 3.24 | | | | | | -12 | | | | | | Lung | | | | | | VolumesTLC | | | | | | Liters 5.37VC | | | | | | Liters 3.17IC | | | | | | Liters 2.09FRC | | | | | | N2 Liters | | | | | | 3.08ERV | | | | | | Liters 1.05RV | | | | | | Liters 2.28RV/TLC | | | | | | % 43Wash | | | | | | Time MinFRC PL | | | | | | Liters 3.08 | | | | | | | | | | | | Pulmonary Pressures | | | | | | | | | | | | Ref Pre Pre | | | | | | | | | | | | Loyd % | | | | | | RefPI max cmH2O | | | | | | 60PI Volume LitersPE | | | | | | max cmH2O 122PE | | | | | | Volume Liters | | | | | | | | | | | | Diffusing Capacity | | | | | | (DLCO) | | | | | | Ref | | | | | | Pre Pre | | | | | | | | | | | | Loyd | | | | | | % RefDLCO | | | | | | mL/mmHg/min 21.4DL | | | | | | Adj mL/mmHg/min | | | | | | 21.4DLCO/VA | | | | | | mL/mHg/min/L 4.21DL/VA | | | | | | Adj mL/mHg/min/L 4.30 PF | | | | | | Reference: NHANES III - | | | | | | | | | | | | | | | | | | | | | | | | | | | | | | | | | | | | Page 1Name: LAUREN BAXTER | | | | | | J ID: [id number] | | | | | | Date: | | | | | | 10/22/12 | | | | | | | | | | | | Six | | | | | | Minute Walk test (if | | | | | | done) | | | | | | COMMENTS:Spirometry | | | | | | data is acceptable and | | | | | | reproducible. Cough with | | | | | | some efforts. | | | | | | | | | | | | | | | | | | Physician | | | | | | InterpretationSpirometry | | | | | | shows mild airflow | | | | | | obstruction indicated by | | | | | | a reduced FEV1/FVC. | | | | | | Since05/03/10, the FEV1 | | | | | | has decreased by 18% and | | | | | | the FVC has decreased | | | | | | by 20%. Between test | | | | | | variation can be up to | | | | | | 10%. These changes | | | | | | therefore | | | | | | aresignificant.The FEV1 | | | | | | increased 9 % after | | | | | | inhaled Albuterol which | | | | | | may notindicate | | | | | | significant | | | | | | reversibility. The cut | | | | | | point for significant | | | | | | reversibilityis an | | | | | | increase in FEV1 or FVC | | | | | | of 12% and 200 mL from | | | | | | baseline. | | | | | | Increasesbetween 5-12% | | | | | | suggest some degree of | | | | | | reversibility.The lack | | | | | | of a significantresponse | | | | | | to bronchodilator | | | | | | testing in a laboratory | | | | | | does not preclude a | | | | | | clinicalresponse to | | | | | | bronchodilator therapy. | | | | | | | | | | | | | | | | | | | | | | | | | | | | | | Page 2 | | | | + + + + + + + + | Specimen | + + | | + + + + + | Narrative | Performed At | + + + | | [facility] | | | DIAGNOSTICS - | | | PULMONARY | | | FUNCTION | + + + + + | Procedure Note | + + | Other, Faculty - 10/25/2012 11:30 AM PDT | + + + + + + + | Performing | Address | City/State/Zipcode | Phone Number | | Organization | | | | + + + + + | [facility] | [address] | [place], [place] | | | DIAGNOSTICS - | [address] | [address] | | | PULMONARY FUNCTION | | | | + + + + + ECG TRACING FOR STRESS ECHOCARDIOGRAM (02/27/2012 12:00 AM PDT) + + + | Narrative | Performed At | + + + | | | + + + documented in this encounter Visit Diagnoses + + | Diagnosis | + + | Asthma Unspecified asthma | + + documented in this encounter
--- OUTSIDE RECORDS SUMMARY | ~2020-05-04 | XMS | Encounter Summary ---
Demographics + + + | Address | [address] | | | [place] [address] | + + + | Home Phone [...] + | Gene Gee | ECON | [address] | | | | | [place], | | | | | [place] [address] | | + + + + + Care Team Providers + +------+ + | Care Physical Medicine Teacher Name | Role | Phone | + +------+ + | Alec Hill MD | PCP | | + +------+ + Encounter Details +--------+ + + + + | Date | Type | Department | Care Team | Description | +--------+ + + + + | 05/02/ | Ancillary | Registration [id number] | Stevan Velazquez, | | | 2006 | Registratio | [address] | [address] | | | | n | [address] Mailcode: [id number] | [place], [place] | | | | | [place], [place] | [address] | | | | | [address] | [phone] | | | | | [phone] | | | +--------+ + + + [...]
--- OUTSIDE RECORDS SUMMARY | ~2020-05-04 | XMS | Encounter Summary ---
Demographics + + + | Address | [address] | | | [place] [address] | + + + | Home Phone | | + + + | Preferred Language | Unknown | + + + | Marital Status | | + + + | Evangelical Affiliation | CHR | + + + | Race | White | + + + | Ethnic Group | Not or | + + + Author + + + | Author | [facility] | + + + | Organization | [facility] | + + + | Address | Unknown | + + + | Phone | Unavailable | + + + Support + + + + + | Name | Relationship | Address | Phone | + + + + + | Gene Gee | ECON | [address] | | | | | [place], | | | | | [place] [address] | | + + + + + Care Team Providers + +------+ + | Care Laminating Machine Feeder Name | Role | Phone | + +------+ + | Alec Hill MD | PCP | | + +------+ + Encounter Details +--------+ + + + + | Date | Type | Department | Care Team | Description | +--------+ + + + + | 12/16/ | Hospital | Registration 3181 | Gary Fuentes MD | | | 2004 | Activity | [facility] | [address] | | | | | [address]: [id number] | [facility] [address], | | | | | [place], [place] | [place] [address] | | | | | [address] | [phone] | | | | | [phone] | | | +--------+ + + + [...]
--- OUTSIDE RECORDS SUMMARY | ~2020-05-04 | XMS | Encounter Summary ---
Demographics + + + | Address | [address] | | | [place] [address] | + + + | Home Phone [...] + | Gene Gee | ECON | [address] | | | | | [place], | | | | | [place] [address] | | + + + + + Care Team Providers + +------+ + | Care Inspector Brake Lining Name | Role | Phone | + +------+ + | Antony Ribera MD | PCP | | + +------+ + Reason for Visit + + + | Reason | Comments | + + + | Postoperative visit | Endovenous radiofrequency ablation of the left great saphenous | | | vein with the VNUS ClosureFast catheter and Microphlebectomy of | | | the left thigh and calf varicose veins using 18 microphlebectomy | | | incisions | + + + Encounter Details +--------+---------+ + + + | Date | Type | Department | Care Team | Description | +--------+---------+ + + + | 08/31/ | Office | Vascular Surgery | Keshawn Munoz, | Varicose veins of | | 2009 | Visit | [facility] at [facility] | [address] | lower extremities | | | | [address] | [address] | with other | | | | [facility] | [place], [place] | complications | | | | and Healing, | [address] | (Primary Dx) | | | | | [phone] | | | | | [place], [place] | | | | | | [address] | | | | | | [phone] | | | +--------+---------+ + + + [...] documented as of this encounter Progress Notes eKshawn Munoz MD - 08/31/2009 11:14 PM PSTFormatting of this note might be different fro m the original. [facility]ULAR [facility]OV[facility]ULAR SURGERY CLINIC Reason for Visit: follow up treatment of left leg varicose veins HISTORY: Ms. Flynn is a 63 y.o. female who is one week s/p the following procedures: 1. Endovenous radiofrequency ablation of the left great saphenous vein with the VNUS Closur eFast catheter 2. Microphlebectomy of the left thigh and calf varicose veins using 18 microphlebectomy inc isions. She is doing well and had no complaints today. Past Medical History Diagnosis Date Sjogrens syndrome 1995 Fibromyalgia 1995 Mitral valve prolapse 1989 GERD (gastroesophageal reflux disease) 1995 Asthma 1999 TMJ (dislocation of temporomandibular joint) Fibrocystic disease of breast 1978 Diverticul disease small and large intestine, no perforati or abscess Skin cancer Small bowel obstruction 07/20,10/19,02/19 Atrial tachycardia 07/20 Bursitis 2005 Plantar fascial fibromatosis 2006 Osteopenia 12/30/2007 Breast cancer 02/2007 Past Surgical History Procedure Date Ectopic Hx [...] 1 Tab by mouth once daily. atenolol 25 mg Oral Tablet Take 25 mg by mouth once daily. budesonide (PULMICORT FLEXHALER) 180 mcg/Inhalation Inhalation Aerosol Powdr Breath Act ivated Inhale 1 Puff two times daily. 2 puffs in the am and 1 puff in the pm calcium citrate-vitamin D (CITRACAL + D) 315-200 mg-unit Oral Tablet 2 tabs twice a day diazepam (VALIUM) 5 mg Oral Tablet Take 1 Tab by mouth as needed. Docusate Sodium (STOOL SOFTENER) 100 mg Oral Capsule 1 pill by mouth 2 X per day DOFETILIDE 500 mcg Oral Capsule Take 1 Cap by mouth two times daily. Enoxaparin Sodium 30 mg/0.3 mL Subcutaneous Solution Inject 30 mg under the skin (SUBC) every twelve hours. Begin taking this medication the evening after the vein procedure, and continue for 4 doses. fluticasone (FLONASE) 50 mcg/Actuation Nasal [place], Suspension Instill 2 Sprays into ea ch nostril once daily. Glucosamine 1,000 mg Oral Tablet one daily MULTIVITAMIN OR one daily oxycodone, immediate release, 5 mg Oral Tablet Take 1 Tab by mouth every six hours as n eeded. potassium chloride SR 20 mEq Oral Tab Sust.Rel. Particle/Crystal Take 1 Tab by mouth on ce daily. PROTONIX 40 mg Oral Tablet, Delayed Release (E.C.) take 1 tablet (40mg) by oral route o nce daily, can take additional tablet in the night if needed rosuvastatin (CRESTOR) 10 mg Oral Tablet Take 10 mg by mouth once daily. tiotropium (SPIRIVA WITH HANDIHALER) 18 mcg Inhalation Capsule, w/Inhalation Device Inh georgi 1 Cap once daily. Vitamin A-Vitamin C-Vit E-Min (ANTIOXIDANT FORMULA) Oral Capsule take 1 capsule by oral route once daily with food VITAMIN D ORAL 2000 IU daily zoledronic acid (RECLAST) 5 mg/100 mL Intravenous Solution Inject into the vein (IV). Yearly- rcvd 01/19/09 Allergies Allergen Reactions Sulfa (Sulfonamides) Swelling-Facial Ciprofloxacin Hives and Rash Triamterene-hydrochlorothiazid BREAST LUMPS Celebrex (Celecoxib) Diarrhea and Cough Albuterol Tachycardia Flecainide Acetate Rash Intestinal discomfort Propafenone unknown Tape Adherent Rash PHYSICIAN EXAMINATION: the patient appears WDWN and in no distress; mild left leg ecchymosi s; all incisions healing well IMAGING STUDIES. left GSV ablated. Saphenofemoral junction and femoral vein patent ASSESSMENT AND PLAN: stable recovery. Follow up in six weeks. Questions regarding activity answered. CC: [facility] [address] [place] [address] [address] [place] [address] documented in this en counter Miscellaneous Notes Scan - Liiga, Faculty - 08/31/2009 10:51 AM PSTAssociated Order(s): ORDERS OTHER documented in this encou nter Plan of Treatment Not on filedocumented as of this encounter Procedures + +--------+ + + + | Procedure Name | Priori | Date/Time | Associated Diagnosis | Comments | | | ty | | | | + +--------+ + + + | ORDERS OTHER | | 08/31/2009 | | Results for this | | | | 10:51 AM | | procedure are in the | | | | PST | | results section. | + +--------+ + + + documented in this encounter Results ORDERS OTHER (08/31/2009 10:51 AM PST) + + + | Narrative | Performed At | + + + | | | + + + + + | Procedure Note | + + | Gisele Strong - 08/31/2009 10:51 AM PST | | | + + documented in this encounter Visit Diagnoses + + | Diagnosis | + + | Varicose veins of lower extremities with other complications - Primary | + + documented in this encounter"
--- OUTSIDE RECORDS SUMMARY | ~2020-05-04 | XMS | Encounter Summary ---
Demographics + + + | Address | [address] | | | [place] [address] | + + + | Home Phone [...] + | Gene Gee | ECON | [address] | | | | | [place], | | | | | [place] [address] | | + + + + + Care Team Providers + +------+ + | Care Dye Maker Name | Role | Phone | + +------+ + | Alec Hill MD | PCP | | + +------+ + Reason for Visit + + + | Reason | Comments | + + + | IV - Intravenous | Reclast | | infusion | | + + + Other (Routine) +--------+--------+ + + + + | Status | Reason | Specialty | Diagnoses / | Referred By | Referred To | | | | | Procedures | Contact | Contact | +--------+--------+ + + + + | Closed | | Rheumatology | Diagnoses | Carlos Manuel, | Kobem | | | | | Age-related | MD [place] | Infusion [facility] | | | | | | [address] | [address] | | | | | osteoporosis | [facility] | [address] | | | | | without | Rd | Physician's | | | | | current | [place], [place] | Pavilion, | | | | | pathological | [address] | 4th Floor | | | | | fracture | Phone: | [place], [place] | | | | | Procedures | [phone] | [address] | | | | | NE | Fax: | Phone: | | | | | INJECTION, | [phone] | [phone] | | | | | ZOLEDRONIC | | Fax: | | | | | ACID, 1MG | | [phone] | | | | | NE | | | | | | | THR/PRPH/DX | | | | | | | IV INF,IN | | | +--------+--------+ + + + + Encounter Details +--------+ + + + + | Date | Type | Department | Care Team | Description | +--------+ + + + + | 09/30/ | Hospital | Rheumatology at | | | | 2019 | Encounter | [facility] [address] | | | | | [address] | | | | | | Physician's | | | | | | [place], [address]th Floor | | | | | | [place], [place] | | | | | | [address] | | | | | | [phone] | | | +--------+ + + + [...] + + + | Blood Pressure | 126/71 | 09/30/2018 1:50 PM | | | | | PDT | | + + + + + | Pulse | 67 | 09/30/2018 1:50 PM | | | | | PDT | | + + + + + | Temperature | 36.6 C (97.9 F) | 09/30/2018 1:50 PM | | | | | PDT | | + + + + + | Respiratory Rate | 18 | 09/30/2018 1:50 PM | | | | | PDT | | + + + + + | Oxygen Saturation | 100% | 09/30/2018 1:50 PM | | | | | PDT [...] + + + documented in this encounter Medications at Time of Discharge + + + +---------+ + + | Medication | Sig | Dispensed | Refills | Start | End Date | | | | | | Date | | + + + +---------+ + + | apixaban (ELIQUIS) | Take 5 mg by mouth | | 0 | | | | 5 mg oral tablet | two times daily. | | | | | + [...] + + + +---------+ + + | cholecalciferol | Take 3,000 Units by | | 0 | | | | (Vitamin D3) | mouth once daily. | | | | | | (VITAMIN D3) 1,000 | | | | | | | unit oral capsule | | | | | | + + + +---------+ + + | dofetilide 250 mcg | Take 250 mcg by | | 0 | | | | oral capsule | mouth two times | | | | | | | daily. Do NOT open | | | | | | | capsule. Swallow | | | | | | | whole. | | | | | + + + +---------+ + + | ezetimibe (ZETIA) | Take 10 mg by mouth | | 0 | | | | 10 mg Oral Tablet | once daily. | | | | | + + + +---------+ + + | lactobac cmb | Take by mouth once | | 0 | | | | #[id number] | daily. | | | | | [...] + + + +---------+ + + | losartan 100 mg | Take 100 mg by mouth | | 0 | | | | oral tablet | once daily. | | | | | + + + +---------+ + + | magnesium oxide | Take by mouth once | | 0 | | | | 250 mg oral tablet | daily. | | | | | + [...] + + | potassium chloride | Take 20 mEq by mouth | | 0 | | | | (KLOR-CON 10) 10 | once daily. | | | | | | mEq oral tablet | | | | | | | extended release | | | | | | + [...] documented as of this encounter Progress Notes Alexa Lyon RN - 09/30/2018 1:45 PM PDTINFUSION NURSING NOTE Medication/Infusion: Reclast 5mg second dose. Physician: Carlos Manuel Subjective: Patient arrived ambulatory to clinic feeling well today. Patient denies any current infections, fevers, cold or flu. Patient also reports no recent or upcoming surgeries. Pain: no Patient was not pre-medicated. See MAR for details. 24g PIV placed to patient's left upper arm per protocol. Site dressed with sterile gauze and coban. Patient tolerated well with no complaints. For infusion details, please see MAR and flowsheet. Patient tolerated well, with no complaints. PIV discontinued intact. Patient discharged home ambulatory from clinic. Alexa Lyon RN documented in this en counter Plan of Treatment + +------+--------+ + + | Name | Type | Priori | Associated Diagnoses | Order Schedule | | | | ty | | | + +------+--------+ + + | COMPLETE METABOLIC | Lab | Routin | Age-related | Ordered: 09/30/2018 | | SET | | e | osteoporosis without | | | (NA,K,CL,CO2,BUN,CRE | | | current | | | AT,GLUC,CA,AST,ALT,B | | | pathological | | | DANICA TOTAL,ALK | | | fracture | | | PHOS,ALB,PROT TOTAL) | | | | | + +------+--------+ + + documented as of this encounter Visit Diagnoses + + | Diagnosis | + + | Age-related osteoporosis without current pathological fracture Senile osteoporosis | + + documented in this encounter Administered Medications + +---------+ +------+------+------+ | Medication Order | MAR | Action | Dose | Rate | Site | | | Action | Date | | | | + +---------+ +------+------+------+ | zoledronic acid (RECLAST) IV 5 | New Bag | 10/01/19 | 5 mg | | | | mg 5 mg, intravenous, ONCE, 1 | | 19 2:25 | | | | | dose, 09/30/18 at 1400 | | PM PDT | | | | + +---------+ +------+------+------+ +---+---+ | | | +---+---+ documented in this encounter"
--- OUTSIDE RECORDS SUMMARY | ~2020-05-04 | XMS | Encounter Summary ---
Demographics + + + | Address | [address] | | | [place] [address] | + + + | Home Phone [...] + | Gene Gee | ECON | [address] | | | | | [place], | | | | | [place] [address] | | + + + + + Care Team Providers + +------+ + | Care Make Up Worker Name | Role | Phone | + +------+ + | Antony Ribera MD | PCP | | + +------+ + Reason for Visit Benefits Check (Routine) +--------+--------+ + + + + | Status | Reason | Specialty | Diagnoses / | Referred By | Referred To | | | | | Procedures | Contact | Contact | +--------+--------+ + + + + | Closed | | Surgical | | Bacilio, | Sly, | | | | Oncology | | Antony Álvarez MD | | | | | | MD Saman | [address] | | | | | | [place] | Ave | | | | | | INTERNAL | [facility] [place] | | | | | | MEDICINE | [address] | | | | | | [address] | Phone: | | | | | | [place] | [phone] | | | | | | [address] | Fax: | | | | | | [place], | [phone] | | | | | | [place] [address] | | | | | | | Phone: | | | | | | | [phone] | | | | | | | Fax: | | | | | | | [phone] | | +--------+--------+ + + + + Encounter Details +--------+---------+ + + + | Date | Type | Department | Care Team | Description | +--------+---------+ + + + | 06/30/ | Office | Surgical Oncology | Luís Heart, | 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 | Visit | - Breast Clinic | [address] | breast (Primary | | | | [address] | [place], [place] | Dx); Breast cancer | | | | Mailcode: CH7A | [phone] | ([facility] | | | | [place] for [facility] | [phone] | | | | | and Healing, | | | | | | [address] | | | | | | Floor [place], [place] | | | | | | [address] | | | | | | [phone] | | | +--------+---------+ + + + [...] + + + | Blood Pressure | 132/73 | 06/30/2010 2:56 PM | | | | | PST | | + + + + + | Pulse | 67 | 06/30/2010 2:56 PM | | | | | PST | | + + + + + | Temperature | 37.2 C (98.9 F) | 06/30/2010 2:56 PM | | | | | PST | | + + + + + | Respiratory Rate | 18 | 06/30/2010 2:56 PM | | | | | PST | | + + + + + | Oxygen Saturation | - | - | | + + + + + | Inhaled Oxygen | - | - | | | Concentration | | | | + + + + + | Weight | 66.3 kg (146 lb 3.2 | 06/30/2010 2:56 PM | | | | oz) | PST | | + + + + + | Height | - | - | | + + + + + | Body Mass Index | 23.6 | 06/01/2010 10:36 AM | | | | | PST | | + + + + + documented in this encounter Progress Notes Luís Heart MD - 06/30/2010 4:41 PM PSTI performed a history and physical examination of the patient and discussed her management with the resident. I reviewed the resident s note and agree with the documented findings and plan of care. LUÍS HEART MD financial intern Division of Surgical Oncology MailCode [id number] [address] [place], [place] [address] uddLeydi garcía MD - 06/30/2010 4:10 PM PST Surgical Oncology Clinic Reason for Visit: annual follow-up HISTORY: Ms. Flynn is a 64 y.o. female who is s/p Right total mastectomy with right axillar y sentinel lymph node biopsy on 03/19/2007 for invasive ductal carcinoma (Path with 1 node s positive) with subsequent right completion axillary lymph node dissection on 04/19/2007 wi th 016 nodes positive. Her tumor was estrogen receptor positive and HER-2/Maddi negative. She also underwent revision of right axillary scar and release of right axillary contractures i n May of 2007. She is s/p adjuvant chemotherapy and is still taking arimidex. She retur ns to clinic today for followup following her yearly mammogram. She states she has not noticed any masses, skin changes or nipple discharge. She states thu t the lymphedema is worsening on her right upper arm and causing some tingling sensation. Talha garcía admits that the wraps she has at home help with this but that she rarely uses them due to discomfort. She also complains of some pain on her left wrist that she thinks is due to her fibromyalgia. ROS: Otherwise negative except as stated in hpi Past Medical History Diagnosis Date Sjogrens syndrome [...] 02/2007 Past Surgical History Procedure Date Ectopic Appendectomy Removal adhesion Hysterectomy Bladder tie up Colon resection, diverticulitis 11/25/02 Pr removal gallbladder 04/07/03 Hernia repair 07/28/2003 Liver cyst ruptured 04/30/2004 Liver cyst removed 06/29/2004 Carpal tunnel release Punctum closed (eyes) 40 years old Sinus procedure 1989? Hemorrhoidectomy 1991 Left leg veins 1992 Bunions/hammer toes/neuromas 1998,1999 Heart ablation 12/16/2004,09/21/2005 Mastectomy Biopsy / excision / dissection axillary node Current outpatient prescriptions Medication Sig anastrozole (ARIMIDEX) [...] mg-unit Oral Tablet 2 tabs in evening / liquid calcium citrate in AM DOFETILIDE 500 mcg Oral Capsule Take 1 Cap by mouth two times daily. fluticasone (FLONASE) 50 mcg/Actuation Nasal [place], Suspension Instill 2 Sprays into ea ch nostril once daily. Glucosamine 1,000 mg Oral Tablet one daily MULTIVITAMIN OR one daily polyethylene glycol 17 gram/dose Oral Powder Take 17 g by mouth once daily. potassium chloride SR 10 mEq Oral Capsule, Sustained Release Take 1 Cap by mouth once d aily. potassium chloride SR 20 mEq Oral Tab Sust.Rel. Particle/Crystal Take 1 Tab by mouth on ce daily. Please dispense as K-dur- other preparations do not get absorbed properly rabeprazole (ACIPHEX) 20 mg Oral Tablet, Delayed Release (E.C.) Take 20 mg by mouth onc e daily. tiotropium (SPIRIVA WITH HANDIHALER) 18 mcg Inhalation Capsule, w/Inhalation Device Inh georgi 1 Cap once daily. tramadol (ULTRAM) 50 mg Oral Tablet Take 1 Tab by mouth every six hours as needed for m oderate pain. Vitamin A-Vitamin C-Vit E-Min (ANTIOXIDANT FORMULA) Oral Capsule take 1 capsule by oral route once daily with food VITAMIN D ORAL 2000 IU daily zoledronic acid (RECLAST) 5 mg/100 mL Intravenous Solution Inject into the vein (IV). Yearly Allergies Allergen Reactions Sulfa (Sulfonamides) Swelling-Facial Celebrex (Celecoxib) Diarrhea and Cough Albuterol Tachycardia Flecainide Acetate Rash Intestinal discomfort Propafenone unknown Crestor (Rosuvastatin Calcium) muscle/Jt Pain Zetia (Ezetimibe) Nausea/Vomiting Kapidex (Dexlansoprazole) Lactose Clarification Needed Patient had steroid injection in shoulder. She and her provider are still trying to find out which part of injection she reacted to. Patient states she was "loopy" for a few days af ter injection Tape Adherent Rash PHYSICAL EXAMINATION: BP 132/73 | Pulse 67 | Temp (Src) 37.2 C (98.9 F) (Oral) | RR 18 | Wt 66.316 kg (146 lb 3.2 oz) Gen: Alert and oriented, NAD Cardiac: RRR Resp: CTAB Abd: soft, NT, ND, well healed scars Breasts: s/p right mastectomy, no dimpling or skin changes, left nipple is everted, no mass es palpated in left breast, no nipple discharge, no masses palpated overlying right skin fla ps or mastectomy scar, no axillary, supraclavicular or cervical lymphadenopathy palpated Ext:no erythema Measurements: R wrist 15cm, L 15cm R mid forearm 21cm, L 21cm R upper forearm 24cm, L 24cm R lower arm 26.5cm, L 25cm R mid arm 27.5cm, L 27 cm R axillary fold 30cm, L 30cm IMAGING STUDIES. Mammogram preliminary read negative for any suspicious masses or calcifica tions. ASSESSMENT AND PLAN: Adriana Flynn is a 64 y.o. Female with right breast cancer now 3 years out s/p mastectomy and axillary dissection. 1. No evidence of recurrent disease 2. Continue Arimidex 3. Per measurements of upper extremities does not meet criteria for lymphedema but patient encouraged to use sleeve for comfort. 4. RTC 1 year with diagnostic mammogram LEYDI OSMAN MD SURGICAL ONCOLOGY - BREAST CLINIC [address] [facility] Mail Code: Ch7a [facility], [address] [facility] [address] CC: Latosha Ribera MD [facility] [address] [place] [id number] documented in this encounter Plan of Treatment Not on filedocumented as of this encounter Procedures + +--------+ + + + | Procedure Name | Priori | Date/Time | Associated Diagnosis | Comments | | | ty | | | | + +--------+ + + + | MA DIAGNOSTIC MAMMO | Routin | 07/20/2011 | | Results for this | | LEFT W/CAD | e | 12:20 PM | | procedure are in the | | | | PST | | results section. | + +--------+ + + + documented in this encounter Results MA DIAGNOSTIC MAMMO LEFT W/CAD (07/20/2011 12:20 PM PST) + + + + + [...] | | | W/CAD | cancer at age62.Family | | | | | | history of breast cancer | | | | | | in cousin at age | | | | | | 65.Mastectomy of the | | | | | | right breast, March | | | | | | 2006.Last mammogram was | | | | | | performed 1 year and 1 | | | | | | month ago.Reason for | | | | | | exam: history of breast | | | | | | cancer, | | | | | | mastectomy.Diagnostic | | | | | | code: 233.0 MA DIGITAL | | | | | | MAMMO DIAG LEFT W/CAD: | | | | | | July 20, 2011 - | | | | | | | | | | | | MLO, and XCCL view(s) | | | | | | were taken of the left | | | | | | breast.Prior study | | | | | | comparison: June 30, | | | | | | 2009, MA DIGITAL MAMMO | | | | | | DIAGLEFT w/CAD. | | | | | | May 27, 2009, MA | | | | | | DIAGNOSTIC MAMMO LEFT | | | | | | w/CAD.May 21, 2008, | | | | | | JEAL DIG MAMMO DIAG | | | | | | LEFT.There are scattered | | | | | | fibroglandular | | | | | | densities. There has | | | | | | beenright mastectomy. | | | | | | The left breast shows | | | | | | no | | | | | | suspiciouscalcifications | | | | | | , masses, or | | | | | | architectural distortion | | | | | | present. The images | | | | | | were obtained using full | | | | | | field digital | | | | | | mammography onthe | | | | | | dedicated Hologic System | | | | | | with R2 CAD. Performed | | | | | | at [facility] and | | | | | | [facility]. | | | | | | ASSESSMENT: Benign - | | | | | | Category 2 | | | | | | RECOMMENDATION:Routine | | | | | | screening mammogram of | | | | | | the left breast in 1 | | | | | | year. Attending | | | | | | Radiologists: Monique Lockett | | | | | | Declan LehmanAuthor: Deniz Rodriguez | | | | | | Declan Frey I have | | | | | | personally viewed this | | | | | | procedure/exam, reviewed | | | | | | this report,and made | | | | | | changes to it where | | | | | | appropriate. | | | | | | Final/Electronically | | | | | | raad / Monique Lehman | | | | | | 07/20/2011 13:23 PM | | | | + + [...]
--- OUTSIDE RECORDS SUMMARY | ~2020-05-04 | XMS | Encounter Summary ---
Demographics + + + | Address | [address] | | | [place] [address] | + + + | Home Phone | | + + + | Preferred Language | Unknown | + + + | Marital Status | | + + + | [employer] Affiliation | CHR | + + + [...] + | Gene Gee | ECON | [address] | | | | | [place], | | | | | [place] [address] | | + + + + + Care Team Providers + +------+ + | Care Living Manager Name | Role | Phone | + +------+ + | Antony Ribera MD | PCP | | + +------+ + Reason for Visit + +--------+ + | Reason | Onset | Comments | | | Date | | + +--------+ + | Refill Request | 03/07/ | | | | 2011 | | + +--------+ + Encounter Details +--------+--------+ + + + | Date | Type | Department | Care Team | Description | +--------+--------+ + + + | 03/07/ | Refill | Cardiology | Monique Middleton, | Refill Request | | 2011 | | Arrhythmia at [facility] | KETTLE WORKER | | | | | [address] | | | | | | [facility] | | | | | | and [place], | | | | | | [facility] [address] | | | | | | [place], [place] | | | | | | [address] | | | | | | [phone] | | | +--------+--------+ + + + [...]
--- OUTSIDE RECORDS SUMMARY | ~2020-05-04 | XMS | Encounter Summary ---
Demographics + + + | Address | [address] | | | [place] [address] | + + + | Home Phone [...] Author + + + | Author | [facility] | + + + | Organization | [facility] | + + + | Address | Unknown | + + + | Phone | Unavailable | + + + Support + + + + + | Name | Relationship | Address | Phone | + + + + + | Gene Gee | ECON | [address] | | | | | [place], | | | | | [place] [address] | | + + + + + Care Team Providers + +------+ + | Care Tank Car Repairer Name | Role | Phone | + +------+ + | Antony Ribera MD | PCP | | + +------+ + Encounter Details +--------+ + + + + | Date | Type | Department | Care Team | Description | +--------+ + + + + | 07/27/ | Abstract | Cardiology | Gary Fuentes MD | | | 2015 | | Arrhythmia at [facility] | [address] | | | | | [address] | [place] [place], | | | | | [facility] | [place] [address] | | | | | and Healing, | [phone] | | | | | | | | | | | Floor [place], [place] | | | | | | [address] | | | | | | [phone] | | | +--------+ + + + [...]
--- OUTSIDE RECORDS SUMMARY | ~2020-05-04 | XMS | Encounter Summary ---
Demographics + + + | Address | [address] | | | [place] [address] | + + + | Home Phone | | + + + | Preferred Language | Unknown | + + + | Marital Status | | + + + | Jewish Affiliation | CHR | + + + | Race | White | + + + | Ethnic Group | Not or | + + + Author + + + | Author | [facility] | + + + | Organization | [facility] | + + + | Address | Unknown | + + + | Phone | Unavailable | + + + Support + + + + + | Name | Relationship | Address | Phone | + + + + + | Gene Gee | ECON | [address] | | | | | [place], | | | | | [place] [address] | | + + + + + Care Team Providers + +------+ + | Care Drier Name | Role | Phone | + +------+ + | Antony Ribera MD | PCP | | + +------+ + Reason for Visit + + + | Reason | Comments | + + + | New patient | breast recon. | | consultation | | + + + Consultation (Routine) +--------+--------+ + + + + | Status | Reason | Specialty | Diagnoses / | Referred By | Referred To | | | | | Procedures | Contact | Contact | +--------+--------+ + + + + | Closed | | Plastic | Diagnoses | Sly, | Asad, | | | | Surgery | Carcinoma | MD Henri | MD Kika | | | | | in situ of | [address] | [address] | | | | | breast | Ave | Ave | | | | | Procedures | [place] | | | | | CONSULT TO | [address] | [address] | | | | | SURGERY - | Phone: | Phone: | | | | | PLASTICS | [phone] | [phone] | | | | | | Fax: | Fax: | | | | | | [phone] | [phone] | +--------+--------+ + + + + Encounter Details +--------+---------+ + + + | Date | Type | Department | Care Team | Description | +--------+---------+ + + + | 03/27/ | Office | Plastic and | Kika Kamara, | Breast Cancer (HCC); | | 2006 | Visit | Reconstructive | [address] | Acquired Absence of | | | | Surgery at [facility] [address] | [place], [place] | Breast | | | | [address] [facility] | [address] | | | | | for Health and | [phone] | | | | | [facility], | | | | | | 5th Floor | | | | | | [place], [place] | | | | | | [address] | | | | | | [phone] | | | +--------+---------+ + + + [...] + + + | Blood Pressure | 128/64 | 03/27/2007 10:57 AM | | | | | PDT | | + + + + + | Pulse | 76 | 03/27/2007 10:57 AM | | | | | PDT | | + + + + + | Temperature | - | - | | + + + + + | Respiratory Rate | 19 | 03/27/2007 10:57 AM | | | | | PDT | | + + + + + | Oxygen Saturation | 100% | 03/27/2007 10:57 AM | | | | | PDT | | + + + + + | Inhaled Oxygen | - | - | | | Concentration | | | | + + + + + | Weight | 65.6 kg (144 lb 11.2 | 03/27/2007 10:57 AM | | | | oz) | PDT | | + + + + + | Height | 167.6 cm (5' 6") | 03/27/2007 10:57 AM | | | | | PDT | | + + + + + | Body Mass Index | 23.36 | 03/27/2007 10:57 AM | | | | | PDT | | + + + + + documented in this encounter Progress Notes Kika Kamara - 03/27/2007 11:57 AM PDTFormatting of this note might be different from zachariah tamez. BREAST RECONSTRUCTION CONSULT SUBJECTIVE History of Present Illness: Adriana Flynn is a 61 y.o. female diagnosed with right breast cancer. Treatment thus far in cludes right mastectomy and sentinel node bx. Pt has not had radiation and may need to have chemotherapy pending final path report. Pt is considering all options for reconstruction. Current bra size: 36B/C Desired cup size: same Family history of breast disease: none Past Medical History Diagnosis Date Sjogrens Syndrome 1996 Fibromyalgia 1996 Mitral Valve Prolapse 1989 GERD (Gastroesophageal Reflux Disease) 1996 Asthma 1999 TMJ (Dislocation of Temporomandibular Joint) Fibrocystic Disease of Breast 1978 Diverticul Disease Small and Large Intestine, no Perforati or Abscess Skin Cancer back Small Bowel Obstruction 07/20,10/19,02/19 Atrial Tachycardia 07/20 Bursitis 2006 Plantar Fascial Fibromatosis 2006 plantar fascial tear Past Surgical History Procedure Date Ectopic age [...] [facility] Heart ablation 12/16/2004,09/21/2005 Dr. Fuentes, [facility] Allergies Allergen Reactions Sulfa (sulfonamides) Swelling-Facial Ciprofloxacin HIVES/RASH Triamterene-hydrochlorothiazid BREAST LUMPS Celebrex (celecoxib) Diarrhea and Cough Albuterol Tachycardia Flecainide Acetate Propafenone Current outpatient prescriptions Medication Sig Fluoxetine HCl (PROZAC) 20 mg Oral Capsule take 1 capsule (20 mg) by oral route prn Atenolol 25 mg Oral Tablet take 1 tablet (25 mg) by oral route once daily Ezetimibe (ZETIA) 10 mg Oral Tablet take 1 tablet (10 mg) by oral route once daily Docusate Sodium (STOOL SOFTENER) 100 mg Oral Capsule take 1 capsule (100 mg) by oral ro [place] once daily at bedtime as needed Vitamin A-Vitamin C-Vit E-Min (ANTIOXIDANT FORMULA) Oral Capsule take 1 capsule by oral route once daily with food Glucosamine Sulfate 1,000 mg Oral Capsule None Entered VITAMINS-LIPOTROPICS OR None Entered Amino Acids (AMINO ACID) Oral Capsule 600 mg PROTONIX 40 MG TAB take 1 tablet (40mg) by oral route once daily PEPCID 20 MG TAB take 1 tablet (20mg) by oral route 2 times per day SPIRIVA WITH HANDIHALER 18 MCG & INHALATION CAPS inhale the contents of one capsule (18 mcg) by inhalation route once daily ULTRAM 50 MG TAB take 1 tablet (50mg) by oral route every 6 hours as needed ETHMOZINE 200 MG TAB take 1 tablet (200mg) by oral route every 8 hours MULTIVITAMIN CAP None Entered Fluoxetine HCl (PROZAC) 20 mg Oral Capsule take 1 capsule (20 mg) by oral route once da yin in the morning DHEA OR 5 mg daily LEVSIN 0.125 MG TAB take 1 tablet (0.125mg) by oral route every 4 hours as needed PULMICORT 0.25 MG/2 ML INHL NEBU Social history: History Substance Use Topics Tobacco Use: Never Alcohol Use: Yes 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 Living at home with patient: :Deepak PHYSICAL EXAM Vitals: BP 128/64 | Pulse 76 | Resp 19 | Ht 1.676 m (5' 6") | Wt 65.635 kg (144 lbs 11.2 oz ) | SpO2 100% General appearance: Well appearing adult female with slightly pinched appearing skin. Neck: Supple without lymphadenopathy. Right Breast: Sternal notch to nipple distance: 23 cm Breast width: 13 cm Mid-line to nipple: 8 cm Ptosis: 1.5 cm down Left Breast: Mastectomy defect with drain in place 17.5 cm transverse scar and axillary scar Abdomen: Multiple scars - midline from xyphoid to suprapubic area, bilateral subcostal scar , RLQ scar Back: Latissimus candidate? yes Extremities: Right foot brace Provisional Diagnosis: Adriana is a good candidate for implant reconstruction. She has multiple medicl problems and has had numerous laparotomies. Her abdominal wall is not favorable for use. She was wil rned about reacting to the silicone in an implant and 'rejecting' it but there is nothing in her hx that would prelude the use of an implant. Planned Course of Action Adriana is just healing from her mastectectomy and will consider a delayed reconstruction wit h tissue manager report/implant. She will contact me if she desires to proceed. She will see Dr. Heart tomorrow. documented in this encoun ter Plan of Treatment Not on filedocumented as of this encounter Visit Diagnoses + + | Diagnosis | + + | Breast cancer (HCC) Malignant neoplasm of breast (female), unspecified site | + + | Acquired absence of breast and nipple | + + documented in this encounter
--- OUTSIDE RECORDS SUMMARY | ~2020-05-04 | XMS | Encounter Summary ---
Demographics + + + | Address | [address] | | | [place] [address] | + + + | Home Phone | | + + + | Preferred Language | Unknown | + + + | Marital Status | | + + + | Jew Affiliation | CHR | + + + | Race | White | + + + | Ethnic Group | Not or | + + + Author + + + | Author | [facility] | + + + | Organization | [facility] | + + + | Address | Unknown | + + + | Phone | Unavailable | + + + Support + + + + + | Name | Relationship | Address | Phone | + + + + + | Gene Gee | ECON | [address] | | | | | [place], | | | | | [place] [address] | | + + + + + Care Team Providers + +------+ + | Care Packing Room Worker Name | Role | Phone | + +------+ + | Antony Ribera MD | PCP | | + +------+ + Encounter Details +--------+ + + + + | Date | Type | Department | Care Team | Description | +--------+ + + + + | 11/09/ | Abstract | Trauma Emergency | [facility] [address] | | | 2009 | | General Surgery at | [facility] | | | | | [address] [place], [place] | | | | | [address] | [address] | | | | | Physicians [place], | | | | | | 2nd Floor | | | | | | [place], [place] | | | | | | [address] | | | | | | [phone] | | | +--------+ + + + [...]
--- OUTSIDE RECORDS SUMMARY | ~2020-05-04 | XMS | Encounter Summary ---
Demographics + + + | Address | [address] | | | [place] [address] | + + + | Home Phone | | + + + | Preferred Language | Unknown | + + + | Marital Status | | + + + | Zoroastrian Affiliation | CHR | + + + [...] + | Gene Gee | ECON | [address] | | | | | [place], | | | | | [place] [address] | | + + + + + Care Team Providers + +------+ + | Care Quenching Car Operator Name | Role | Phone | + +------+ + | Antony Ribera MD | PCP | | + +------+ + Encounter Details +--------+ + + + + | Date | Type | Department | Care Team | Description | +--------+ + + + + | 10/22/ | Abstract | Cardiology | Monique Middleton, | | | 2011 | | Arrhythmia at [facility] | [employer] [employer] | | | | | [address] | | | | | | [place] [facility] | | | | | | and Healing, | | | | | | Building | | | | | | Floor [place], [place] | | | | | | [address] | | | | | | [phone] | | | +--------+ + + + [...] + | VITAMIN D, | Routin | 10/17/2011 | | Results for this | | 25-HYDROXY, SERUM | e | | | procedure are in the | | | | | | results section. | + +--------+ + + + | LIVER SET | Routin | 10/17/2011 | | Results for this | | (AST,ALT,BILI | e | | | procedure are in the | | TOTAL,BILI | | | | results section. | | DIRECT,ALK | | | | | | PHOS,ALB,PROT TOTAL) | | | | | + +--------+ + + + | BASIC METABOLIC SET | Routin | 10/17/2011 | | Results for this | | (NA, K, CL, TCO2, | e | | | procedure are in the | | BUN, CR, GLU, CA) | | | | results section. | + +--------+ + + + | CBC ONLY | Routin | 10/17/2011 | | Results for this | | | e | | | procedure are in the | | | | | | results section. | + +--------+ + + + | FREE T4 | Routin | 10/17/2011 | | Results for this | | | e | | | procedure are in the | | | | | | results section. | + +--------+ + + + | LIPID SET (TRIG, T | Routin | 10/17/2011 | | Results for this | | CHOL, HDL, CALC LDL) | e | | | procedure are in the | | | | | | results section. | + +--------+ + + + documented in this encounter Results CBC ONLY (10/17/2011) + +-------+ + + + | Component | Value | Ref Range | Performed | Pathologist | | | | | At | Signature | + +-------+ + + + | WHITE CELL | 6.2 | 4.5 - 11.0 K/cu | [facility] | | | COUNT | | mm | LAB - | | | | | | [place] | | + +-------+ + + + | RED CELL | 4.70 | 3.8 - 5.1 M/cu | [facility] | | | COUNT | | mm | LAB - | | | | | | [place] | | + +-------+ + + + | HEMOGLOBIN | 14.1 | 12.0 - 16.0 | [facility] | | | | | g/dL | LAB - | | | | | | [place] | | + +-------+ + + + | HEMATOCRIT | 43.0 | 35 - 45 % | [facility] | | | | | | LAB - | | | | | | [place] | | + +-------+ + + + | MCV | 91.6 | 81 - 99 fL | [facility] | | | | | | LAB - | | | | | | [place] | | + +-------+ + + + | MCH | 30 | 27 - 33 pg | [facility] | | | | | | LAB - | | | | | | [place] | | + +-------+ + + + | MCHC | 33 | 30 - 36 g/dL | [facility] | | | | | | LAB - | | | | | | [place] | | + +-------+ + + + | PLATELET | 160 | 140 - 440 K/cu | [facility] | | | COUNT | | mm | LAB - | | | | | | [place] | | + +-------+ + + + | RDW | 13.7 | 10.5 - 15.0 % | [facility] | | | | | | LAB - | | [...] + | [facility] - | [address] | [place], [place] | [phone] | | [place] | | | | + + + + + | [facility] - | | [place], [place] | | | [place] | | | | + + + + + VITAMIN D, 25-HYDROXY, SERUM (10/17/2011) + +-------+ + + + | Component | Value | Ref Range | Performed | Pathologist | | | | | At | Signature | + +-------+ + + + | VITAMIN D | 75 | 30 - 100 ng/mL | [facility] | | | 25 [...] + + | [facility] - | [address] | [place] | [phone] | | [place] | | | | + + + + + | [facility] - | | [place], [place] | | | [place] | | | | + + + + + FREE T4, SERUM (10/17/2011) + +-------+ + + + | Component | Value | Ref Range | Performed | Pathologist | | | | | At | Signature | + +-------+ + + + | FREE T4, | 6.69 | 4.5 - 11.4 | [facility] | | | SERUM | | ng/dL | LAB - | | | | | | [place] | | + +-------+ + + + + + | Specimen | + + | Blood - Blood | + + + + + + + | Performing | Address | City/State/Zipcode | Phone Number | | Organization | | | | + + + + + | [facility] - | [address] | [place], [place] | [phone] | | [place] | | | | + + + + + | [facility] - | | [place], [place] | | | [place] | | | | + + + + + BASIC METABOLIC SET (NA, K, CL, TCO2, BUN, CR, GLU, CA) (10/17/2011) + +-------+ + + + | Component | Value | Ref Range | Performed | Pathologist | | | | | At | Signature | + +-------+ + + + | GLUCOSE, | 82 | 60 - 100 mg/dL | [facility] | | | PLASMA | | | LAB - | | | (LAB) | | | [place] | | + +-------+ + + + | BUN, PLASMA | 12 | 6 - 23 mg/dL | [facility] | | | (LAB) | | | LAB - | | | | | | [place] | | + +-------+ + + + | CREATININE | 0.76 | 0.50 - 1.50 | [facility] | | | PLASMA | | mg/dL | LAB - | | | (LAB) | | | [place] | | + +-------+ + + + | SODIUM, | 141 | 132 - 143 | [facility] | | | PLASMA | | mmol/L | LAB - | | | (LAB) | | | [place] | | + +-------+ + + + | POTASSIUM, | 3.9 | 3.6 - 5.1 | [facility] | | | PLASMA | | mmol/L | LAB - | | | (LAB) | | | [place] | | + +-------+ + + + | CHLORIDE, | 109 | 95 - 112 mmol/L | [facility] | | | PLASMA | | | LAB - | | | (LAB) | | | [place] | | + +-------+ + + + | TOTAL CO2, | 26 | 19 - 31 mmol/L | [facility] | | | PLASMA | | | LAB - | | | (LAB) | | | [place] | | + +-------+ + + + | CALCIUM, | 9.7 | 8.4 - 10.2 | [facility] | | | PLASMA | | mg/dL | LAB - | | | (LAB) | | | [place] | | + +-------+ + + + | ANION GAP | 9.9 | 7 - 21 | [facility] | | | | | | LAB - | | | | | | [place] | | + +-------+ + + + | OSMOLALITY, | 271 | 259 - 277 | [facility] | | | CALCULATED | | | LAB - | | | | | | [place] | | + +-------+ + + + | URIC ACID, | 4.5 | 2.3 - 6.6 mg/dL | [facility] | | | PLASMA | | | LAB - | | | (LAB) | | | [place] | | + +-------+ + + + | PHOSPHORUS, | 3.9 | 2.5 - 5.0 mg/dL | [facility] | | | PLASMA | | | LAB - | | | (LAB) | | | [place] | | + +-------+ + + + + + | Specimen | + + | Blood - Blood | + + + + + + + | Performing | Address | City/State/Zipcode | Phone Number | | Organization | | | | + + + + + | [facility] - | [address] | [place], [place] | [phone] | | [place] | | | | + + + + + | [facility] - | | [place], [place] | | | [place] | | | | + + + + + LIVER SET (AST,ALT,BILI TOTAL,BILI DIRECT,ALK PHOS,ALB,PROT TOTAL) (10/17/2011) + +---------+ + + + | Component | Value | Ref Range | Performed | Pathologist | | | | | At | Signature | + +---------+ + + + | BILIRUBIN | 0.6 | 0.0 - 1.2 | [facility] | | | TOTAL | | Transcutaneous | LAB - | | | | | Bilirubinometer | [place] | | + +---------+ + + + | ALK PHOS | 57 | 30 - 128 U/L | [facility] | | | | | | LAB - | | | | | | [place] | | + +---------+ + + + | TOTAL | 5.7 (A) | 6.0 - 8.0 g/dL | [facility] | | | PROTEIN, | | | LAB - | | | PLASMA | | | [place] | | | (LAB) | | | | | + +---------+ + + + | BILIRUBIN | 0.1 | 0 - 0.1 mg/dL | [facility] | | | DIRECT | | | LAB - | | | | | | [place] | | + +---------+ + + + | ALBUMIN, | 4.0 | 3.5 - 5.0 g/dL | [facility] | | | PLASMA | | | LAB - | | | (LAB) | | | [place] | | + +---------+ + + + | AST(SGOT) | 23 | 0 - 40 U/L | [facility] | | | | | | LAB - | | | | | | [place] | | + +---------+ + + + | ALT (SGPT) | 19 | 0 - 46 U/L | [facility] | | | | | | LAB - | | | | | | [place] | | + +---------+ + + + | GLOBULIN | 1.7 (A) | 1.8 - 3.5 g/dL | [facility] | | | | | | LAB - | | | | | | [place] | | + +---------+ + + + | LD TOTAL, | 155 | 100 - 215 U/L | [facility] | | | PLASMA | | | LAB - | | | | | | [place] | | + +---------+ + + + | GAMMA | 11 | 5 - 60 U/L | [facility] | | | GLUTAMYL | | | LAB - | | | TRANS | | | [place] | | + +---------+ + + + + + | Specimen | + + | Blood - Blood | + + + + + + + | Performing | Address | City/State/Zipcode | Phone Number | | Organization | | | | + + + + + | [facility] - | [address] | [place] | [phone] | | [place] | | | | + + + + + | [facility] - | | [place], [place] | | | [place] | | | | + + + + + LIPID SET (TRIG, T CHOL, HDL, CALC LDL) (10/17/2011) + +-------+ + + + | Component | Value | Ref Range | Performed | Pathologist | | | | | At | Signature | + +-------+ + + + | CHOLESTEROL | 172 | <200 mg/dL | [facility] | | | (LAB) | | | LAB - | | | | | | [place] | | + +-------+ + + + | TRIGLYCERID | 72 | 30 - 150 mg/dL | [facility] | | | ES | | | LAB - | | | | | | [place] | | + +-------+ + + + | HDL | 45 | >40 mg/dL | [facility] | | | CHOLESTEROL | | | LAB - | | | | | | [place] | | + +-------+ + + + | VLDL | 14 | 4 - 40 mg/dL | [facility] | | | CHOLESTEROL | | | LAB - | | | | | | [place] | | + +-------+ + + + | LDL | 113 | <100 mg/dL | [facility] | | | CHOLESTEROL | | | LAB - | | | , | | | [place] | | | CALCULATED | | | | | + +-------+ + + + + + | Specimen | + + | Blood - Blood | + + + + + + + | Performing | Address | City/State/Zipcode | Phone Number | | Organization | | | | + + + + + | [facility] - | [address] | [place], [place] | [phone] | | [place] | | | | + + + + + | [facility] - | | [place], [place] | | | [place] | | | | + + + + + documented in this encounter Visit Diagnoses Not on filedocumented in this encounter"
--- OUTSIDE RECORDS SUMMARY | ~2020-05-04 | XMS | Encounter Summary ---
Demographics + + + | Address | [address] | | | [place] [address] | + + + | Home Phone [...] + | Gene Gee | ECON | [address] | | | | | [place], | | | | | [place] [address] | | + + + + + Care Team Providers + +------+ + | Care User Interface Artist Name | Role | Phone | + [...] | | | | | | | [place] | | | | | | | [id number] | | | | | | | [facility] | | | | | | | [place], | | | | | | | [place] [address] | | | | | | | Phone: | | | | | | | [phone] | | | | | | | Fax: | | | | | | | [phone] | +--------+--------+ + + + + Encounter Details +--------+ + + + + | Date | Type | Department | Care Team | Description | +--------+ + + + + | 01/04/ | Hospital | Cardiac | Sjh, Car Ecg Tech | Canceled (Provider | | 2007 | Encounter | Non-Invasive Testing | [address] | Request) | | | | at [address] | [facility] | | | | | [address] | [place] [address] | | | | | [address] | | | | | | [place], [facility] floor | | | | | | [place], [place] | | | | | | [address] | | | | | | [phone] | | | +--------+ + + + [...]
--- OUTSIDE RECORDS SUMMARY | ~2020-05-04 | XMS | Encounter Summary ---
Demographics + + + | Address | [address] | | | [place] [address] | + + + | Home Phone [...] + | Gene Gee | ECON | [address] | | | | | [place], | | | | | [place] [address] | | + + + + + Care Team Providers + +------+ + | Care Digital Pre Press Operator Name | Role | Phone | + +------+ + PCP | Unavailable | + +------+ + Encounter Details +--------+ + + + + | Date | Type | Department | Care Team | Description | +--------+ + + + + | 06/28/ | Results | Liver Transplant | Katie Callahan MD | | | 2003 | Only | at [facility] [address] | [address] | | | | | [address] | [address] [place], | | | | | Physician's | [place] [address] | | | | | [place], 2nd floor | [phone] | | | | | [place], [place] | | | | | | [address] | | | | | | [phone] | | | +--------+ + + + [...] | + +--------+ + + + | DIFFERENTIAL | Routin | 08/23/2004 | | Results for this | | | e | 10:08 AM | | procedure are in the | | | | PST | | results section. | + +--------+ + + + | INR | Routin | 08/23/2004 | | Results for this | | | e | 10:08 AM | | procedure are in the | | | | PST | | results section. | + +--------+ + + + | CBC, WITH | Routin | 08/23/2004 | | Results for this | | DIFFERENTIAL | e | 10:08 AM | | procedure are in the | | | | PST | | results section. | + +--------+ + + + | COMPLETE METABOLIC | Routin | 08/23/2004 | | Results for this | | SET | e | 10:08 AM | | procedure are in the | | (NA,K,CL,CO2,BUN,CRE | | PST | | results section. | | AT,GLUC,CA,AST,ALT,B | | | | | | DANICA TOTAL,ALK | | | | | | PHOS,ALB,PROT TOTAL) | | | | | + +--------+ + + + | PHOSPHORUS, PLASMA | Routin | 08/23/2004 | | Results for this | | | e | 10:08 AM | | procedure are in the | | | | PST | | results section. | + +--------+ + + + | GGT, PLASMA | Routin | 08/23/2004 | | Results for this | | | e | 10:08 AM | | procedure are in the | | | | PST | | results section. | + +--------+ + + + | BILIRUBIN DIRECT | Routin | 08/23/2004 | | Results for this | | | e | 10:08 AM | | procedure are in the | | | | PST | | results section. | + +--------+ + + + | URIC ACID, PLASMA | Routin | 08/23/2004 | | Results for this | | | e | 10:08 AM | | procedure are in the | | | | PST | | results section. | + +--------+ + + + | MAGNESIUM, PLASMA | Routin | 08/23/2004 | | Results for this | | | e | 10:08 AM | | procedure are in the | | | | PST | | results section. | + +--------+ + + + | LDH TOTAL, PLASMA | Routin | 08/23/2004 | | Results for this | | | e | 10:08 AM | | procedure are in the | | | | PST | | results section. | + +--------+ + + + | COMPLETE METABOLIC | Routin | 07/07/2004 | | Results for this | | SET | e | 6:40 AM | | procedure are in the | | (NA,K,CL,CO2,BUN,CRE | | PST | | results section. | | AT,GLUC,CA,AST,ALT,B | | | | | | DANICA TOTAL,ALK | | | | | | PHOS,ALB,PROT TOTAL) | | | | | + +--------+ + + + | CBC ONLY | Routin | 07/07/2004 | | Results for this | | | e | 6:40 AM | | procedure are in the | | | | PST | | results section. | + +--------+ + + + | PHOSPHORUS, PLASMA | Routin | 07/07/2004 | | Results for this | | | e | 6:40 AM | | procedure are in the | | | | PST | | results section. | + +--------+ + + + | DIGOXIN, PLASMA | Routin | 07/07/2004 | | Results for this | | | e | 6:40 AM | | procedure are in the | | | | PST | | results section. | + +--------+ + + + | BILIRUBIN DIRECT | Routin | 07/07/2004 | | Results for this | | | e | 6:40 AM | | procedure are in the | | | | PST | | results section. | + +--------+ + + + | MAGNESIUM, PLASMA | Routin | 07/07/2004 | | Results for this | | | e | 6:40 AM | | procedure are in the | | | | PST | | results section. | + +--------+ + + + | LIVER SET | Routin | 07/07/2004 | | Results for this | | (AST,ALT,BILI | e | 6:01 AM | | procedure are in the | | TOTAL,BILI | | PST | | results section. | | DIRECT,ALK | | | | | | PHOS,ALB,PROT TOTAL) | | | | | + +--------+ + + + | COMPLETE METABOLIC | Routin | 07/07/2004 | | Results for this | | SET | e | 6:01 AM | | procedure are in the | | (NA,K,CL,CO2,BUN,CRE | | PST | | results section. | | AT,GLUC,CA,AST,ALT,B | | | | | | DANICA TOTAL,ALK | | | | | | PHOS,ALB,PROT TOTAL) | | | | | + +--------+ + + + | CBC ONLY | Routin | 07/07/2004 | | Results for this | | | e | 6:01 AM | | procedure are in the | | | | PST | | results section. | + +--------+ + + + | PHOSPHORUS, PLASMA | Routin | 07/07/2004 | | Results for this | | | e | 6:01 AM | | procedure are in the | | | | PST | | results section. | + +--------+ + + + | DIGOXIN, PLASMA | Routin | 07/07/2004 | | Results for this | | | e | 6:01 AM | | procedure are in the | | | | PST | | results section. | + +--------+ + + + | MAGNESIUM, PLASMA | Routin | 07/07/2004 | | Results for this | | | e | 6:01 AM | | procedure are in the | | | | PST | | results section. | + +--------+ + + + | COMPLETE METABOLIC | Routin | 07/05/2004 | | Results for this | | SET | e | 6:01 AM | | procedure are in the | | (NA,K,CL,CO2,BUN,CRE | | PST | | results section. | | AT,GLUC,CA,AST,ALT,B | | | | | | DANICA TOTAL,ALK | | | | | | PHOS,ALB,PROT TOTAL) | | | | | + +--------+ + + + | CBC ONLY | Routin | 07/05/2004 | | Results for this | | | e | 6:01 AM | | procedure are in the | | | | PST | | results section. | + +--------+ + + + | PHOSPHORUS, PLASMA | Routin | 07/05/2004 | | Results for this | | | e | 6:01 AM | | procedure are in the | | | | PST | | results section. | + +--------+ + + + | MAGNESIUM, PLASMA | Routin | 07/05/2004 | | Results for this | | | e | 6:01 AM | | procedure are in the | | | | PST | | results section. | + +--------+ + + + | INR | Urgent | 07/04/2004 | | Results for this | | | | 3:20 AM | | procedure are in the | | | | PST | | results section. | + +--------+ + + + | COMPLETE METABOLIC | Urgent | 07/04/2004 | | Results for this | | SET | | 3:20 AM | | procedure are in the | | (NA,K,CL,CO2,BUN,CRE | | PST | | results section. | | AT,GLUC,CA,AST,ALT,B | | | | | | DANICA TOTAL,ALK | | | | | | PHOS,ALB,PROT TOTAL) | | | | | + +--------+ + + + | CBC ONLY | Urgent | 07/04/2004 | | Results for this | | | | 3:20 AM | | procedure are in the | | | | PST | | results section. | + +--------+ + + + | APTT (ACT. PART. | Urgent | 07/04/2004 | | Results for this | | THROMBO TIME) | | 3:20 AM | | procedure are in the | | | | PST | | results section. | + +--------+ + + + | PHOSPHORUS, PLASMA | Urgent | 07/04/2004 | | Results for this | | | | 3:20 AM | | procedure are in the | | | | PST | | results section. | + +--------+ + + + | MAGNESIUM, PLASMA | Urgent | 07/04/2004 | | Results for this | | | | 3:20 AM | | procedure are in the | | | | PST | | results section. | + +--------+ + + + | DIFFERENTIAL | Urgent | 07/03/2004 | | Results for this | | | | 1:20 AM | | procedure are in the | | | | PST | | results section. | + +--------+ + + + | CBC, WITH | Urgent | 07/03/2004 | | Results for this | | DIFFERENTIAL | | 1:20 AM | | procedure are in the | | | | PST | | results section. | + +--------+ + + + | COMPLETE METABOLIC | Urgent | 07/03/2004 | | Results for this | | SET | | 1:20 AM | | procedure are in the | | (NA,K,CL,CO2,BUN,CRE | | PST | | results section. | | AT,GLUC,CA,AST,ALT,B | | | | | | DANICA TOTAL,ALK | | | | | | PHOS,ALB,PROT TOTAL) | | | | | + +--------+ + + + | PHOSPHORUS, PLASMA | Urgent | 07/03/2004 | | Results for this | | | | 1:20 AM | | procedure are in the | | | | PST | | results section. | + +--------+ + + + | MAGNESIUM, PLASMA | Urgent | 07/03/2004 | | Results for this | | | | 1:20 AM | | procedure are in the | | | | PST | | results section. | + +--------+ + + + | DIFFERENTIAL | Urgent | 07/02/2004 | | Results for this | | | | 3:10 AM | | procedure are in the | | | | PST | | results section. | + +--------+ + + + | CBC, WITH | Urgent | 07/02/2004 | | Results for this | | DIFFERENTIAL | | 3:10 AM | | procedure are in the | | | | PST | | results section. | + +--------+ + + + | COMPLETE METABOLIC | Urgent | 07/02/2004 | | Results for this | | SET | | 3:10 AM | | procedure are in the | | (NA,K,CL,CO2,BUN,CRE | | PST | | results section. | | AT,GLUC,CA,AST,ALT,B | | | | | | DANICA TOTAL,ALK | | | | | | PHOS,ALB,PROT TOTAL) | | | | | + +--------+ + + + | PHOSPHORUS, PLASMA | Urgent | 07/02/2004 | | Results for this | | | | 3:10 AM | | procedure are in the | | | | PST | | results section. | + +--------+ + + + | MAGNESIUM, PLASMA | Urgent | 07/02/2004 | | Results for this | | | | 3:10 AM | | procedure are in the | | | | PST | | results section. | + +--------+ + + + | COMPLETE METABOLIC | Routin | 07/01/2004 | | Results for this | | SET | e | 11:50 AM | | procedure are in the | | (NA,K,CL,CO2,BUN,CRE | | PST | | results section. | | AT,GLUC,CA,AST,ALT,B | | | | | | DANICA TOTAL,ALK | | | | | | PHOS,ALB,PROT TOTAL) | | | | | + +--------+ + + + | PHOSPHORUS, PLASMA | Routin | 07/01/2004 | | Results for this | | | e | 11:50 AM | | procedure are in the | | | | PST | | results section. | + +--------+ + + + | MAGNESIUM, PLASMA | Routin | 07/01/2004 | | Results for this | | | e | 11:50 AM | | procedure are in the | | | | PST | | results section. | + +--------+ + + + | DIFFERENTIAL | Urgent | 07/01/2004 | | Results for this | | | | 12:45 AM | | procedure are in the | | | | PST | | results section. | + +--------+ + + + | SLIDE REVIEW | Urgent | 07/01/2004 | | Results for this | | | | 12:45 AM | | procedure are in the | | | | PST | | results section. | + +--------+ + + + | CBC, WITH | Urgent | 07/01/2004 | | Results for this | | DIFFERENTIAL | | 12:45 AM | | procedure are in the | | | | PST | | results section. | + +--------+ + + + | BASIC METABOLIC SET | Urgent | 07/01/2004 | | Results for this | | (NA, K, CL, TCO2, | | 12:45 AM | | procedure are in the | | BUN, CR, GLU, CA) | | PST | | results section. | + +--------+ + + + | PHOSPHORUS, PLASMA | Urgent | 07/01/2004 | | Results for this | | | | 12:45 AM | | procedure are in the | | | | PST | | results section. | + +--------+ + + + | MAGNESIUM, PLASMA | Urgent | 07/01/2004 | | Results for this | | | | 12:45 AM | | procedure are in the | | | | PST | | results section. | + +--------+ + + + | CALCIUM, PLASMA | Urgent | 07/01/2004 | | Results for this | | | | 12:45 AM | | procedure are in the | | | | PST | | results section. | + +--------+ + + + | INR | Urgent | 06/30/2004 | | Results for this | | | | 3:30 AM | | procedure are in the | | | | PST | | results section. | + +--------+ + + + | COMPLETE METABOLIC | Urgent | 06/30/2004 | | Results for this | | SET | | 3:30 AM | | procedure are in the | | (NA,K,CL,CO2,BUN,CRE | | PST | | results section. | | AT,GLUC,CA,AST,ALT,B | | | | | | DANICA TOTAL,ALK | | | | | | PHOS,ALB,PROT TOTAL) | | | | | + +--------+ + + + | CBC ONLY | Urgent | 06/30/2004 | | Results for this | | | | 3:30 AM | | procedure are in the | | | | PST | | results section. | + +--------+ + + + | APTT (ACT. PART. | Urgent | 06/30/2004 | | Results for this | | THROMBO TIME) | | 3:30 AM | | procedure are in the | | | | PST | | results section. | + +--------+ + + + | PHOSPHORUS, PLASMA | Urgent | 06/30/2004 | | Results for this | | | | 3:30 AM | | procedure are in the | | | | PST | | results section. | + +--------+ + + + | MAGNESIUM, PLASMA | Urgent | 06/30/2004 | | Results for this | | | | 3:30 AM | | procedure are in the | | | | PST | | results section. | + +--------+ + + + | X-RAY CHEST 1 VIEW | Priori | 06/29/2004 | | Results for this | | | ty | 5:27 PM | | procedure are in the | | | | PST | | results section. | + +--------+ + + + | BODY FLUID INFO | Routin | 06/29/2004 | | Results for this | | PANEL | e | 5:05 PM | | procedure are in the | | | | PST | | results section. | + +--------+ + + + | CELL COUNT DIFF, | Routin | 06/29/2004 | | Results for this | | BODY FLUID | e | 5:05 PM | | procedure are in the | | | | PST | | results section. | + +--------+ + + + | INR | Routin | 06/29/2004 | | Results for this | | | e | 5:00 PM | | procedure are in the | | | | PST | | results section. | + +--------+ + + + | COMPLETE METABOLIC | Routin | 06/29/2004 | | Results for this | | SET | e | 5:00 PM | | procedure are in the | | (NA,K,CL,CO2,BUN,CRE | | PST | | results section. | | AT,GLUC,CA,AST,ALT,B | | | | | | DANICA TOTAL,ALK | | | | | | PHOS,ALB,PROT TOTAL) | | | | | + +--------+ + + + | CBC ONLY | Routin | 06/29/2004 | | Results for this | | | e | 5:00 PM | | procedure are in the | | | | PST | | results section. | + +--------+ + + + | APTT (ACT. PART. | Routin | 06/29/2004 | | Results for this | | THROMBO TIME) | e | 5:00 PM | | procedure are in the | | | | PST | | results section. | + +--------+ + + + | PHOSPHORUS, PLASMA | Routin | 06/29/2004 | | Results for this | | | e | 5:00 PM | | procedure are in the | | | | PST | | results section. | + +--------+ + + + | MAGNESIUM, PLASMA | Routin | 06/29/2004 | | Results for this | | | e | 5:00 PM | | procedure are in the | | | | PST | | results section. | + +--------+ + + + | CULTURE, WOUND BACTI | Routin | 06/29/2004 | | Results for this | | & GS | e | 2:20 PM | | procedure are in the | | | | PST | | results section. | + +--------+ + + + | SURGICAL PATHOLOGY | Routin | 06/29/2004 | | Results for this | | | e | | | procedure are in the | | | | | | results section. | + +--------+ + + + | X-RAY CHEST 2 VIEW | Routin | 06/28/2004 | | Results for this | | | e | 2:08 PM | | procedure are in the | | | | PST | | results section. | + +--------+ + + + | BLOOD BANK PRODUCT | Routin | 06/28/2004 | | Results for this | | | e | 1:30 PM | | procedure are in the | | | | PST | | results section. | + +--------+ + + + | BLOOD BANK PRODUCT | Routin | 06/28/2004 | | Results for this | | | e | 1:30 PM | | procedure are in the | | | | PST | | results section. | + +--------+ + + + | TYPE AND CROSSMATCH | Routin | 06/28/2004 | | Results for this | | | e | 1:30 PM | | procedure are in the | | | | PST | | results section. | + +--------+ + + + documented in this encounter Results DIFFERENTIAL (08/23/2004 10:08 AM PST) + +-------+ + + + | Component | Value | Ref Range | Performed | Pathologist | | | | | At | Signature | + +-------+ + + + | NEUTROPHIL | 59 | 50 - 70 % | [facility] | | | % | | | DEPARTMENT | | | | | | OF | | | | | | PATHOLOGY | | + +-------+ + + + | LYMPHOCYTE | 31 | 18 - 42 % | [facility] | | | % | | | DEPARTMENT | | | | | | OF | | | | | | PATHOLOGY | | + +-------+ + + + | MONOCYTE % | 7 | 2 - 8 % | [facility] | | | | | | DEPARTMENT | | | | | | OF | | | | | | PATHOLOGY | | + +-------+ + + + | EOS % | 3 | 1 - 3 % | [facility] | | | | | | DEPARTMENT | | | | | | OF | | | | | | PATHOLOGY | | + +-------+ + + + | BASO % | 0 | <3 % | [facility] | | | | | | DEPARTMENT | | | | | | OF | | | | | | PATHOLOGY | | + +-------+ + + + | NEUTROPHIL | 3.7 | 1.8 - 7.7 K/cu | [facility] | | | # | | mm | DEPARTMENT | | | | | | OF | | | | | | PATHOLOGY | | + +-------+ + + + | LYMPHOCYTE | 1.9 | 1.0 - 4.8 K/cu | [facility] | | | # | | mm | DEPARTMENT | | | | | | OF | | | | | | PATHOLOGY | | + +-------+ + + + | MONOCYTE # | 0.4 | 0.1 - 0.6 K/cu | [facility] | | | | | mm | DEPARTMENT | | | | | | OF | | | | | | PATHOLOGY | | + +-------+ + + + | EOS # | 0.2 | <0.6 K/cu mm | [facility] | | | | | | DEPARTMENT | | | | | | OF | | | | | | PATHOLOGY | | + +-------+ + + + | BASO # | 0.0 | <0.3 | [facility] | | | | | [...] | + + + + + | [facility] | [address] | [place] [address] | | | PATHOLOGY | [address] | | | + + + + + | [facility] | [address] | [place] [address] | | | PATHOLOGY | [address] | | | + + + + + CBC, WITH DIFFERENTIAL (08/23/2004 10:08 AM PST) + +-------+ + + + | Component | Value | Ref Range | Performed | Pathologist | | | | | At | Signature | + +-------+ + + + | WHITE CELL | 6.2 | 4.4 - 11.0 K/cu | [facility] | | | COUNT | | mm | DEPARTMENT | | | | | | OF | | | | | | PATHOLOGY | | + +-------+ + + + | RED CELL | 4.48 | 3.65 - 5.10 | [facility] | | | COUNT | | M/cu mm | DEPARTMENT | | | | | | OF | | | | | | PATHOLOGY | | + +-------+ + + + | HEMOGLOBIN | 12.7 | 11.4 - 15.0 | [facility] | | | | | g/dL | DEPARTMENT | | | | | | OF | | | | | | PATHOLOGY | | + +-------+ + + + | HEMATOCRIT | 38.1 | 33.0 - 44.6 % | [facility] | | | | | | DEPARTMENT | | | | | | OF | | | | | | PATHOLOGY | | + +-------+ + + + | MCV | 84.9 | 80.0 - 96.0 fL | [facility] | | | | | | DEPARTMENT | | | | | | OF | | | | | | PATHOLOGY | | + +-------+ + + + | MCHC | 33.4 | 33.4 - 35.5 | [facility] | | | | | g/dL | DEPARTMENT | | | | | | OF | | | | | | PATHOLOGY | | + +-------+ + + + | PLATELET | 196 | 150 - 400 K/cu | [facility] [...] | + + + + + | [facility] | [address] | [place] [address] | | | PATHOLOGY | [address] | | | + + + + + | [facility] | [address] | [place] [address] | | | PATHOLOGY | [address] | | | + + + + + PROTHROMBIN TIME (08/23/2004 10:08 AM PST) + + + + + + | Component | Value | Ref Range | Performed | Pathologist | | | | | At | Signature | + + + + + + | INR | 1.03Comment: | 0.90 - 1.20 INR | [facility] | | | | PT INR Therapeutic | | DEPARTMENT | | | | ranges for full | | OF | | | | anticoagulation: | | PATHOLOGY | | | | INR for | | | | | | Venous Thromboembolism | | | | | | | | | | | | (2.0-3.0)INR | | | | | | INR for most | | | | | | patients with mech. | | | | | | valves (2.5-3.5)INR | | | | + + + + + + + + | Specimen | + + | | + + + + + + + | Performing | Address | City/State/Zipcode | Phone Number | | Organization | | | | + + + + + | [facility] DEPARTMENT OF | [address] | [place] [address] | | | PATHOLOGY | [address] | | | + + + + + | [facility] DEPARTMENT | [address] | [place] [address] | | | PATHOLOGY | [address] | | | + + + + + COMP METABOLIC SET (08/23/2004 10:08 AM PST) + +-------+ + + + | Component | Value | Ref Range | Performed | Pathologist | | | | | At | Signature | + +-------+ + + + | GLUCOSE, | 87 | 65 - 110 mg/dL | [facility] | | | PLASMA | | | DEPARTMENT | | | (LAB) | | | OF | | | | | | PATHOLOGY | | + +-------+ + + + | BUN, PLASMA | 12 | 6 - 20 mg/dL | [facility] | | | (LAB) | | | DEPARTMENT | | | | | | OF | | | | | | PATHOLOGY | | + +-------+ + + + | CREATININE | 0.8 | 0.6 - 1.1 mg/dL | [facility] | | | PLASMA | | | DEPARTMENT | | | (LAB) | | | OF | | | | | | PATHOLOGY | | + +-------+ + + + | TOTAL | 6.9 | 6.1 - 7.9 g/dL | [facility] | | | PROTEIN, | | | DEPARTMENT | | | PLASMA | | | OF | | | (LAB) | | | PATHOLOGY | | + +-------+ + + + | ALBUMIN, | 3.7 | 3.5 - 4.7 g/dL | [facility] | | | PLASMA | | | DEPARTMENT | | | (LAB) | | | OF | | | | | | PATHOLOGY | | + +-------+ + + + | CALCIUM, | 9.2 | 8.5 - 10.5 | [facility] | | | PLASMA | | mg/dL | DEPARTMENT | | | (LAB) | | | OF | | | | | | PATHOLOGY | | + +-------+ + + + | BILIRUBIN | 0.9 | 0.3 - 1.2 mg/dL | [facility] | | | TOTAL | | | DEPARTMENT | | | | | | OF | | | | | | PATHOLOGY | | + +-------+ + + + | ALK PHOS | 75 | 53 - 141 U/L | [facility] | | | | | | DEPARTMENT | | | | | | OF | | | | | | PATHOLOGY | | + +-------+ + + + | AST(SGOT) | 22 | 15 - 41 U/L | [facility] | | | | | | DEPARTMENT | | | | | | OF | | | | | | PATHOLOGY | | + +-------+ + + + | SODIUM, | 141 | 136 - 145 | [facility] | [...] +-------+ + + + | CHLORIDE, | 103 | 98 - 107 mmol/L | [facility] | | | PLASMA | | | DEPARTMENT | | | (LAB) | | | OF | | | | | | PATHOLOGY | | + +-------+ + + + | TOTAL CO2, | 29 | 23 - 29 mmol/L | [facility] | | | PLASMA | | | DEPARTMENT | | | (LAB) | | | OF | | | | | | PATHOLOGY | | + +-------+ + + + | ALT (SGPT) | 22 | 13 - 48 U/L | [facility] [...] + + + + + | [facility] DEPARTMENT | [address] | [place] [address] | | | PATHOLOGY | [address] | | | + + + + + | [facility] | [address] [place] [address] | [place] [address] | | | PATHOLOGY | [address] | | | + + + + + MAGNESIUM, PLASMA (08/23/2004 10:08 AM PST) + +-------+ + + + [...] + + + + + | [facility] DEPARTMENT OF | [address] | [place] [address] | | | PATHOLOGY | [address] | | | + + + + + | [facility] DEPARTMENT OF | [address] | [place] [address] | | | PATHOLOGY | [address] | | | + + + + + PHOSPHORUS, PLASMA (08/23/2004 10:08 AM PST) + +-------+ + + + | Component | Value | Ref Range | Performed | Pathologist | | | | | At | Signature | + +-------+ + + + | PHOSPHORUS, | 4.4 | 2.4 - 4.7 mg/dL | [facility] [...] | + + + + + | [facility] | [address] | [place] [address] | | | PATHOLOGY | [address] | | | + + + + + | [facility] | [address] | [place] [address] | | | PATHOLOGY | [address] | | | + + + + + URIC ACID, PLASMA (08/23/2004 10:08 AM PST) + +-------+ + + + | Component | Value | Ref Range | Performed | Pathologist | | | | | At | Signature | + +-------+ + + + | URIC ACID, | 4.3 | 2.5 - 6.2 mg/dL | [facility] | | | PLASMA [...] DEPARTMENT OF | [address] | [place] [address] | | | PATHOLOGY | [address] | | | + + + + + | [facility] DEPARTMENT | [address] | [place] [address] | | | PATHOLOGY | [address] | | | + + + + + BILIRUBIN, DIRECT (08/23/2004 10:08 AM PST) + +-------+ + + + | Component | Value | Ref Range | Performed | Pathologist | | | | | At | Signature | + +-------+ + + + | BILIRUBIN | 0.1 | <0.4 mg/dL | [facility] | | | DIRECT | | | DEPARTMENT | | | | | | OF | | | | | | PATHOLOGY | | + +-------+ + + + + + | Specimen | + + | | + + + + + + + | Performing | Address | City/State/Zipcode | Phone Number | | Organization | | | | + + + + + | [facility] | [address] | [place] [address] | | | PATHOLOGY | [address] | | | + + + + + | [facility] | [address] | [place] [address] | | | PATHOLOGY | [address] | | | + + + + + LDH, TOTAL, PLASMA (08/23/2004 10:08 AM PST) + +-------+ + + + | Component | Value | Ref Range | Performed | Pathologist | | | | | At | Signature | + +-------+ + + + | LD TOTAL, | 127 | 110 - 205 U/L | [facility] | | | PLASMA | [...] DEPARTMENT OF | [address] | [place] [address] | | | PATHOLOGY | [address] | | | + + + + + | [facility] DEPARTMENT OF | [address] | [place] [address] | | | PATHOLOGY | [address] | | | + + + + + GGT (08/23/2004 10:08 AM PST) + +-------+ + + + | Component | Value | Ref Range | Performed | Pathologist | | | | | At | Signature | + +-------+ + + + | GAMMA | 24 | 8 - 41 U/L | [facility] | | | GLUTAMYL | | | DEPARTMENT | | | TRANS | | | OF | | | | | | PATHOLOGY | | + +-------+ + + + + + | Specimen | + + | | + + + + + + + | Performing | Address | City/State/Zipcode | Phone Number | | Organization | | | | + + + + + | [facility] | [facility] | [place] [address] | | | PATHOLOGY | [address] | | | + + + + + | [facility] | [address] [place] [address] | [place] [address] | | | PATHOLOGY | [address] | | | + + + + + CBC ONLY WITH PLATELET (07/07/2004 6:40 AM PST) + +-------+ + + + | Component | Value | Ref Range | Performed | Pathologist | | | | | At | Signature | + +-------+ + + + | WHITE CELL | 8.0 | 4.4 - 11.0 K/cu | [facility] | | | COUNT | | mm | DEPARTMENT | | | | | | OF | | | | | | PATHOLOGY | | + +-------+ + + + | RED CELL | 3.95 | 3.65 - 5.10 | [facility] | | | COUNT | | M/cu mm | DEPARTMENT | | | | | | OF | | | | | | PATHOLOGY | | + +-------+ + + + | HEMOGLOBIN | 11.7 | 11.4 - 15.0 | [facility] | | | | | g/dL | DEPARTMENT | | | | | | OF | | | | | | PATHOLOGY | | + +-------+ + + + | HEMATOCRIT | 34.1 | 33.0 - 44.6 % | [facility] | | | | | | DEPARTMENT | | | | | | OF | | | | | | PATHOLOGY | | + +-------+ + + + | MCV | 86.3 | 80.0 - 96.0 fL | [facility] | | | | | | DEPARTMENT | | | | | | OF | | | | | | PATHOLOGY | | + +-------+ + + + | MCH | 29.5 | 29.0 - 32.0 pg | [facility] | | | | | | DEPARTMENT | | | | | | OF | | | | | | PATHOLOGY | | + +-------+ + + + | MCHC | 34.2 | 33.4 - 35.5 | [facility] | | | | | g/dL | DEPARTMENT | | | | | | OF | | | | | | PATHOLOGY | | + +-------+ + + + | RDW | 13.0 | 11.5 - 15.0 % | [facility] | | | | | | DEPARTMENT | | | | | | OF | | | | | | PATHOLOGY | | + +-------+ + + + | PLATELET | 282 | 150 - 400 K/cu | [facility] | | | COUNT | | mm | DEPARTMENT | | | | | | OF | | | | | | PATHOLOGY | | + +-------+ + + + | MPV | 8.0 | 7.4 - 10.4 fL | [facility] | | | | [...] + + | [facility] DEPARTMENT OF | [address] | [place] [address] | | | PATHOLOGY | [address] | | | + + + + + | [facility] DEPARTMENT OF | [id number] [address] | [place] [address] | | | PATHOLOGY | [address] | | | + + + + + DIGOXIN (07/07/2004 6:40 AM PST) + + + + + + | Component | Value | Ref Range | Performed | Pathologist | | | | | At | Signature | + + + + + + | DIGOXIN | 1.2Comment: New | 0.8 - 2.0 ng/mL | [facility] | | | [facility] | methodology as of | | DEPARTMENT | | | ON | 10/28/03. | | OF | | | | | | PATHOLOGY | | + + + + + + + + | Specimen | + + | | + + + + + + + | Performing | Address | City/State/Zipcode | Phone Number | | Organization | | | | + + + + + | [facility] DEPARTMENT | [address] | [place] [address] | | | PATHOLOGY | [address] | | | + + + + + | [facility] DEPARTMENT OF | [facility] [facility] | [place] [address] | | | PATHOLOGY | [address] | | | + + + + + COMP METABOLIC SET (07/07/2004 6:40 AM PST) + +---------+ + + + | Component | Value | Ref Range | Performed | Pathologist | | | | | At | Signature | + +---------+ + + + | GLUCOSE, | 89 | 65 - 110 mg/dL | [facility] | | | PLASMA | | | DEPARTMENT | | | (LAB) | | | OF | | | | | | PATHOLOGY | | + +---------+ + + + | BUN, PLASMA | 6 | 6 - 20 mg/dL | [facility] [...] + + + | TOTAL | 5.7 (L) | 6.1 - 7.9 g/dL | [...] +---------+ + + + | CALCIUM, | 9.0 | 8.5 - 10.5 | [facility] | [...] + + + | ALK PHOS | 116 | 53 - 141 U/L | [facility] | | | | | | DEPARTMENT | | | | | | OF | | | | | | PATHOLOGY | | + +---------+ + + + | AST(SGOT) | 37 | 15 - 41 U/L | [facility] | | | | | | DEPARTMENT | | | | | | OF | | | | | | PATHOLOGY | | + +---------+ + + + | SODIUM, | 137 | 136 - 145 | [facility] | | | PLASMA | | mmol/L | DEPARTMENT | | | (LAB) | | | OF | | | | | | PATHOLOGY | | + +---------+ + + + | POTASSIUM, | 4.4 | 3.5 - 5.1 | [facility] | | | PLASMA | | mmol/L | DEPARTMENT | | | (LAB) | | | OF | | | | | | PATHOLOGY | | + +---------+ + + + | CHLORIDE, | 99 | 98 - 107 mmol/L | [facility] | | | PLASMA | | | DEPARTMENT | | | (LAB) | | | OF | | | | | | PATHOLOGY | | + +---------+ + + + | TOTAL CO2, | 30 (H) | 23 - 29 mmol/L | [facility] | | | PLASMA | | | DEPARTMENT | | | (LAB) | | | OF | | | | | | PATHOLOGY | | + +---------+ + + + | ALT (SGPT) | 55 (H) | 13 - 48 U/L | [facility] [...] | [facility]MENT OF | [address] | [place] [address] | | | PATHOLOGY | [address] | | | + + + + + | [facility] DEPARTMENT OF | [address] | [place] [address] | | | PATHOLOGY | [address] | | | + + + + + BILIRUBIN, DIRECT (07/07/2004 6:40 AM PST) + +-------+ + + + | Component | Value | Ref Range | Performed | Pathologist | | | | | At | Signature | + +-------+ + + + | BILIRUBIN | 0.2 | <0.4 mg/dL | [facility] | | | DIRECT | | | DEPARTMENT | | | [...] + + + + + | [facility] DEPARTMENT OF | [address] | [place] [address] | | | PATHOLOGY | [address] | | | + + + + + | [facility] DEPARTMENT OF | [address] | [place] [address] | | | PATHOLOGY | [address] | | | + + + + + MAGNESIUM, PLASMA (07/07/2004 6:40 AM PST) + +-------+ + + + | Component | Value | Ref Range | Performed | Pathologist | | | | | At | Signature | + +-------+ + + + | MAGNESIUM,P | 1.9 | 1.8 - 2.5 mg/dL | [facility] [...] + + + + + | [facility] DEPARTMENT OF | [address] | [place] [address] | | | PATHOLOGY | [address] | | | + + + + + | [facility] DEPARTMENT OF | [address] | [place] [address] | | | PATHOLOGY | [address] | | | + + + + + PHOSPHORUS, PLASMA (07/07/2004 6:40 AM PST) + +-------+ + + + | Component | Value | Ref Range | Performed | Pathologist | | | | | At | Signature | + +-------+ + + + | PHOSPHORUS, | 3.8 | 2.4 - 4.7 mg/dL | [facility] [...] + + + + + | [facility] DEPARTMENT OF | [address] | [place] [address] | | | PATHOLOGY | [address] | | | + + + + + | [facility] DEPARTMENT OF | [address] | [place] [address] | | | PATHOLOGY | [address] | | | + + + + + CBC ONLY WITH PLATELET (07/07/2004 6:01 AM PST) + + + + + + | Component | Value | Ref Range | Performed | Pathologist | | | | | At | Signature | + + + + + + | WHITE CELL | See cmnt | 4.4 - 11.0 K/cu | [facility] | | | COUNT | | mm | DEPARTMENT | | | | | | OF | | | | | | PATHOLOGY | | + + + + + + | RED CELL | See cmnt | 3.65 - 5.10 | [facility] | | | COUNT | | M/cu mm | DEPARTMENT | | | | | | OF | | | | | | PATHOLOGY | | + + + + + + | HEMOGLOBIN | See cmnt | 11.4 - 15.0 | [facility] | | | | | g/dL | DEPARTMENT | | | | | | OF | | | | | | PATHOLOGY | | + + + + + + | HEMATOCRIT | See cmnt | 33.0 - 44.6 % | [facility] | | | | | | DEPARTMENT | | | | | | OF | | | | | | PATHOLOGY | | + + + + + + | MCV | See cmnt | 80.0 - 96.0 fL | [facility] | | | | | | DEPARTMENT | | | | | | OF | | | | | | PATHOLOGY | | + + + + + + | MCH | See cmnt | 29.0 - 32.0 pg | [facility] | | | | | | DEPARTMENT | | | | | | OF | | | | | | PATHOLOGY | | + + + + + + | MCHC | See cmnt | 33.4 - 35.5 | [facility] | | | | | g/dL | DEPARTMENT | | | | | | OF | | | | | | PATHOLOGY | | + + + + + + | RDW | See cmnt | 11.5 - 15.0 % | [facility] | | | | | | DEPARTMENT | | | | | | OF | | | | | | PATHOLOGY | | + + + + + + | PLATELET | See cmnt | 150 - 400 K/cu | [facility] | | | COUNT | | mm | DEPARTMENT | | | | | | OF | | | | | | PATHOLOGY | | + + + + + + | MPV | See cmnt | 7.4 - 10.4 fL | [facility] | | | | | | DEPARTMENT | | | | | | OF | | | | | | PATHOLOGY | | + + + + + + + + | Specimen | + + | | + + + + + | Narrative | Performed At | + + + | Staff or dialysis draw required. | [facility] | | | DEPARTMENT OF | | | PATHOLOGY | + + + + + + + + | Performing | Address | City/State/Zipcode | Phone Number | | Organization | | | | + + + + + | [facility] DEPARTMENT OF | [address] | [place] [address] | | | PATHOLOGY | [address] | | | + + + + + | [facility] | [address] | [place] [address] | | | PATHOLOGY | [address] | | | + + + + + DIGOXIN (07/07/2004 6:01 AM PST) + + + + + + | Component | Value | Ref Range | Performed | Pathologist | | | | | At | Signature | + + + + + + | DIGOXIN | See cmnt | 0.8 - 2.0 ng/mL | [facility] | | | [facility] | | | DEPARTMENT | | | ON | | | OF | | | | | | PATHOLOGY | | + + + + + + + + | Specimen | + + | | + + + + + | Narrative | Performed At | + + + | Staff or dialysis draw required. | [facility] | | | DEPARTMENT OF | | | PATHOLOGY | + + + + + + + + | Performing | Address | City/State/Zipcode | Phone Number | | Organization | | | | + + + + + | [facility] DEPARTMENT | [address] | [place] [address] | | | PATHOLOGY | [address] | | | + + + + + | [facility] DEPARTMENT | [facility] [address] | [place] [address] | | | PATHOLOGY | [address] | | | + + + + + COMP METABOLIC SET (07/07/2004 6:01 AM PST) + + + + + + | Component | Value | Ref Range | Performed | Pathologist | | | | | At | Signature | + + + + + + | GLUCOSE, | See cmnt | 65 - 110 mg/dL | [facility] | | | PLASMA | | | DEPARTMENT | | | (LAB) | | | OF | | | | | | PATHOLOGY | | + + + + + + | BUN, PLASMA | See cmnt | 6 - 20 mg/dL | [facility] | | | (LAB) | | | DEPARTMENT | | | | | | OF | | | | | | PATHOLOGY | | + + + + + + | CREATININE | See cmnt | 0.6 - 1.1 mg/dL | [facility] | | | PLASMA | | | DEPARTMENT | | | (LAB) | | | OF | | | | | | PATHOLOGY | | + + + + + + | TOTAL | See cmnt | 6.1 - 7.9 g/dL | [facility] | | | PROTEIN, | | | DEPARTMENT | | | PLASMA | | | OF | | | (LAB) | | | PATHOLOGY | | + + + + + + | ALBUMIN, | See cmnt | 3.5 - 4.7 g/dL | [facility] | | | PLASMA | | | DEPARTMENT | | | (LAB) | | | OF | | | | | | PATHOLOGY | | + + + + + + | CALCIUM, | See cmnt | 8.5 - 10.5 | [facility] | | | PLASMA | | mg/dL | DEPARTMENT | | | (LAB) | | | OF | | | | | | PATHOLOGY | | + + + + + + | BILIRUBIN | See cmnt | 0.3 - 1.2 mg/dL | [facility] | | | TOTAL | | | DEPARTMENT | | | | | | OF | | | | | | PATHOLOGY | | + + + + + + | ALK PHOS | See cmnt | 53 - 141 U/L | [facility] | | | | | | DEPARTMENT | | | | | | OF | | | | | | PATHOLOGY | | + + + + + + | AST(SGOT) | See cmnt | 15 - 41 U/L | [facility] | | | | | | DEPARTMENT | | | | | | OF | | | | | | PATHOLOGY | | + + + + + + | SODIUM, | See cmnt | 136 - 145 | [facility] | | | PLASMA | | mmol/L | DEPARTMENT | | | (LAB) | | | OF | | | | | | PATHOLOGY | | + + + + + + | POTASSIUM, | See cmnt | 3.5 - 5.1 | [facility] | | | PLASMA | | mmol/L | DEPARTMENT | | | (LAB) | | | OF | | | | | | PATHOLOGY | | + + + + + + | CHLORIDE, | See cmnt | 98 - 107 mmol/L | [facility] | | | PLASMA | | | DEPARTMENT | | | (LAB) | | | OF | | | | | | PATHOLOGY | | + + + + + + | TOTAL CO2, | See cmnt | 23 - 29 mmol/L | [facility] | | | PLASMA | | | DEPARTMENT | | | (LAB) | | | OF | | | | | | PATHOLOGY | | + + + + + + | ALT (SGPT) | See cmnt | 13 - 48 U/L | [facility] | | | | | | DEPARTMENT | | | | | | OF | | | | | | PATHOLOGY | | + + + + + + | AST CMNT | See cmnt | | [facility] | | | | | | DEPARTMENT | | | | | | OF | | | | | | PATHOLOGY | | + + + + + + | POTASSIUM | See cmnt | | [facility] | | | CMNT | | | DEPARTMENT | | | | | | OF | | | | | | PATHOLOGY | | + + + + + + | DOEI T CMNT | See cmnt | | [facility] | | | | | | DEPARTMENT | | | | | | OF | | | | | | PATHOLOGY | | + + + + + + + + | Specimen | + + | | + + + + + | Narrative | Performed At | + + + | Staff or dialysis draw required. | [facility] | | | DEPARTMENT OF | | | PATHOLOGY | + + + + + + + + | Performing | Address | City/State/Zipcode | Phone Number | | Organization | | | | + + + + + | [facility] | [address] | [place] [address] | | | PATHOLOGY | [address] | | | + + + + + | [facility] | [address] | [place] [address] | | | PATHOLOGY | [address] | | | + + + + + LIVER SET (07/07/2004 6:01 AM PST) + + + + + + | Component | Value | Ref Range | Performed | Pathologist | | | | | At | Signature | + + + + + + | ALBUMIN, | See cmnt | 3.5 - 4.7 g/dL | [facility] | | | PLASMA | | | DEPARTMENT | | | (LAB) | | | OF | | | | | | PATHOLOGY | | + + + + + + | BILIRUBIN | See cmnt | 0.3 - 1.2 mg/dL | [facility] | | | TOTAL | | | DEPARTMENT | | | | | | OF | | | | | | PATHOLOGY | | + + + + + + | BILIRUBIN | See cmnt | <0.4 mg/dL | [facility] | | | DIRECT | | | DEPARTMENT | | | | | | OF | | | | | | PATHOLOGY | | + + + + + + | ALK PHOS | See cmnt | 53 - 141 U/L | [facility] | | | | | | DEPARTMENT | | | | | | OF | | | | | | PATHOLOGY | | + + + + + + | AST(SGOT) | See cmnt | 15 - 41 U/L | [facility] | | | | | | DEPARTMENT | | | | | | OF | | | | | | PATHOLOGY | | + + + + + + | ALT (SGPT) | See cmnt | 13 - 48 U/L | [facility] | | | | | | DEPARTMENT | | | | | | OF | | | | | | PATHOLOGY | | + + + + + + | TOTAL | See cmnt | 6.1 - 7.9 g/dL | [facility] | | | PROTEIN, | | | DEPARTMENT | | | PLASMA | | | OF | | | (LAB) | | | PATHOLOGY | | + + + + + + | AST CMNT | See cmnt | | [facility] | | | | | | DEPARTMENT | | | | | | OF | | | | | | PATHOLOGY | | + + + + + + | BILI T CMNT | See cmnt | | [facility] | | | | | | DEPARTMENT | | | | | | OF | | | | | | PATHOLOGY | | + + + + + + | ANTOINE D CMNT | See cmnt | | [facility] | | | | | | DEPARTMENT | | | | | | OF | | | | | | PATHOLOGY | | + + + + + + + + | Specimen | + + | | + + + + + | Narrative | Performed At | + + + | Staff or dialysis draw required. | [facility] | | | DEPARTMENT OF | | | PATHOLOGY | + + + + + + + + | Performing | Address | City/State/Zipcode | Phone Number | | Organization | | | | + + + + + | [facility] | [address] | [place] [address] | | | PATHOLOGY | [address] | | | + + + + + | [facility] DEPARTMENT | [address] | [place] [address] | | | PATHOLOGY | [address] | | | + + + + + MAGNESIUM, PLASMA (07/07/2004 6:01 AM PST) + + + + + + | Component | Value | Ref Range | Performed | Pathologist | | | | | At | Signature | + + + + + + | MAGNESIUM,P | See cmnt | 1.8 - 2.5 mg/dL | [facility] | | | LASMA | | | DEPARTMENT | | | | | | OF | | | | | | PATHOLOGY | | + + + + + + + + | Specimen | + + | | + + + + + | Narrative | Performed At | + + + | Staff or dialysis draw required. | [facility] | | | DEPARTMENT OF | | | PATHOLOGY | + + + + + + + + | Performing | Address | City/State/Zipcode | Phone Number | | Organization | | | | + + + + + | [facility] DEPARTMENT OF | [address] | [place] [address] | | | PATHOLOGY | [address] | | | + + + + + | [facility] DEPARTMENT OF | [address] | [place] [address] | | | PATHOLOGY | [address] | | | + + + + + PHOSPHORUS, PLASMA (07/07/2004 6:01 AM PST) + + + + + + | Component | Value | Ref Range | Performed | Pathologist | | | | | At | Signature | + + + + + + | PHOSPHORUS, | See cmnt | 2.4 - 4.7 mg/dL | [facility] | | | PLASMA | | | DEPARTMENT | | | (LAB) | | | OF | | | | | | PATHOLOGY | | + + + + + + + + | Specimen | + + | | + + + + + | Narrative | Performed At | + + + | Staff or dialysis draw required. | [facility] | | | DEPARTMENT OF | | | PATHOLOGY | + + + + + + + + | Performing | Address | City/State/Zipcode | Phone Number | | Organization | | | | + + + + + | [facility]MENT OF | [address] | [place] [address] | | | PATHOLOGY | [address] | | | + + + + + | [facility] DEPARTMENT OF | [address] | [place] [address] | | | PATHOLOGY | [address] | | | + + + + + CBC ONLY WITH PLATELET (07/05/2004 6:01 AM PST) + + + + + + | Component | Value | Ref Range | Performed | Pathologist | | | | | At | Signature | + + + + + + | WHITE CELL | See cmnt | 4.4 - 11.0 K/cu | [facility] | | | COUNT | | mm | DEPARTMENT | | | | | | OF | | | | | | PATHOLOGY | | + + + + + + | RED CELL | See cmnt | 3.65 - 5.10 | [facility] | | | COUNT | | M/cu mm | DEPARTMENT | | | | | | OF | | | | | | PATHOLOGY | | + + + + + + | HEMOGLOBIN | See cmnt | 11.4 - 15.0 | [facility] | | | | | g/dL | DEPARTMENT | | | | | | OF | | | | | | PATHOLOGY | | + + + + + + | HEMATOCRIT | See cmnt | 33.0 - 44.6 % | [facility] | | | | | | DEPARTMENT | | | | | | OF | | | | | | PATHOLOGY | | + + + + + + | MCV | See cmnt | 80.0 - 96.0 fL | [facility] | | | | | | DEPARTMENT | | | | | | OF | | | | | | PATHOLOGY | | + + + + + + | MCH | See cmnt | 29.0 - 32.0 pg | [facility] | | | | | | DEPARTMENT | | | | | | OF | | | | | | PATHOLOGY | | + + + + + + | MCHC | See cmnt | 33.4 - 35.5 | [facility] | | | | | g/dL | DEPARTMENT | | | | | | OF | | | | | | PATHOLOGY | | + + + + + + | RDW | See cmnt | 11.5 - 15.0 % | [facility] | | | | | | DEPARTMENT | | | | | | OF | | | | | | PATHOLOGY | | + + + + + + | PLATELET | See cmnt | 150 - 400 K/cu | [facility] | | | COUNT | | mm | DEPARTMENT | | | | | | OF | | | | | | PATHOLOGY | | + + + + + + | MPV | See cmnt | 7.4 - 10.4 fL | [facility] | | | | | | DEPARTMENT | | | | | | OF | | | | | | PATHOLOGY | | + + + + + + + + | Specimen | + + | | + + + + + | Narrative | Performed At | + + + | Staff or dialysis draw required. Free Text changed 07/06/04 05:46: | [facility] | | previously reported as: staff | DEPARTMENT OF | | | PATHOLOGY | + + + + + + + + | Performing | Address | City/State/Zipcode | Phone Number | | Organization | | | | + + + + + | [facility] | [address] | [place] [address] | | | PATHOLOGY | [address] | | | + + + + + | [facility] | [address] | [place] [address] | | | PATHOLOGY | [address] | | | + + + + + COMP METABOLIC SET (07/05/2004 6:01 AM PST) + + + + + + | Component | Value | Ref Range | Performed | Pathologist | | | | | At | Signature | + + + + + + | GLUCOSE, | See cmnt | 65 - 110 mg/dL | [facility] | | | PLASMA | | | DEPARTMENT | | | (LAB) | | | OF | | | | | | PATHOLOGY | | + + + + + + | BUN, PLASMA | See cmnt | 6 - 20 mg/dL | [facility] | | | (LAB) | | | DEPARTMENT | | | | | | OF | | | | | | PATHOLOGY | | + + + + + + | CREATININE | See cmnt | 0.6 - 1.1 mg/dL | [facility] | | | PLASMA | | | DEPARTMENT | | | (LAB) | | | OF | | | | | | PATHOLOGY | | + + + + + + | TOTAL | See cmnt | 6.1 - 7.9 g/dL | [facility] | | | PROTEIN, | | | DEPARTMENT | | | PLASMA | | | OF | | | (LAB) | | | PATHOLOGY | | + + + + + + | ALBUMIN, | See cmnt | 3.5 - 4.7 g/dL | [facility] | | | PLASMA | | | DEPARTMENT | | | (LAB) | | | OF | | | | | | PATHOLOGY | | + + + + + + | CALCIUM, | See cmnt | 8.5 - 10.5 | [facility] | | | PLASMA | | mg/dL | DEPARTMENT | | | (LAB) | | | OF | | | | | | PATHOLOGY | | + + + + + + | BILIRUBIN | See cmnt | 0.3 - 1.2 mg/dL | [facility] | | | TOTAL | | | DEPARTMENT | | | | | | OF | | | | | | PATHOLOGY | | + + + + + + | ALK PHOS | See cmnt | 53 - 141 U/L | [facility] | | | | | | DEPARTMENT | | | | | | OF | | | | | | PATHOLOGY | | + + + + + + | AST(SGOT) | See cmnt | 15 - 41 U/L | [facility] | | | | | | DEPARTMENT | | | | | | OF | | | | | | PATHOLOGY | | + + + + + + | SODIUM, | See cmnt | 136 - 145 | [facility] | | | PLASMA | | mmol/L | DEPARTMENT | | | (LAB) | | | OF | | | | | | PATHOLOGY | | + + + + + + | POTASSIUM, | See cmnt | 3.5 - 5.1 | [facility] | | | PLASMA | | mmol/L | DEPARTMENT | | | (LAB) | | | OF | | | | | | PATHOLOGY | | + + + + + + | CHLORIDE, | See cmnt | 98 - 107 mmol/L | [facility] | | | PLASMA | | | DEPARTMENT | | | (LAB) | | | OF | | | | | | PATHOLOGY | | + + + + + + | TOTAL CO2, | See cmnt | 23 - 29 mmol/L | [facility] | | | PLASMA | | | DEPARTMENT | | | (LAB) | | | OF | | | | | | PATHOLOGY | | + + + + + + | ALT (SGPT) | See cmnt | 13 - 48 U/L | [facility] | | | | | | DEPARTMENT | | | | | | OF | | | | | | PATHOLOGY | | + + + + + + | AST CMNT | See cmnt | | [facility] | | | | | | DEPARTMENT | | | | | | OF | | | | | | PATHOLOGY | | + + + + + + | POTASSIUM | See cmnt | | [facility] | | | CMNT | | | DEPARTMENT | | | | | | OF | | | | | | PATHOLOGY | | + + + + + + | BILI T CMNT | See cmnt | | [facility] | | | | | | DEPARTMENT | | | | | | OF | | | | | | PATHOLOGY | | + + + + + + + + | Specimen | + + | | + + + + + | Narrative | Performed At | + + + | staff | [facility] | | | DEPARTMENT OF | | | PATHOLOGY | + + + + + + + + | Performing | Address | City/State/Zipcode | Phone Number | | Organization | | | | + + + + + | [facility] DEPARTMENT OF | [address] | [place] [address] | | | PATHOLOGY | [address] | | | + + + + + | [facility] | [address] | [place] [address] | | | PATHOLOGY | [address] | | | + + + + + PHOSPHORUS, PLASMA (07/05/2004 6:01 AM PST) + + + + + + | Component | Value | Ref Range | Performed | Pathologist | | | | | At | Signature | + + + + + + | PHOSPHORUS, | See cmnt | 2.4 - 4.7 mg/dL | [facility] | | | PLASMA | | | DEPARTMENT | | | (LAB) | | | OF | | | | | | PATHOLOGY | | + + + + + + + + | Specimen | + + | | + + + + + | Narrative | Performed At | + + + | staff | [facility] | | | DEPARTMENT OF | | | PATHOLOGY | + + + + + + + + | Performing | Address | City/State/Zipcode | Phone Number | | Organization | | | | + + + + + | [facility] DEPARTMENT OF | [address] | [place] [address] | | | PATHOLOGY | [address] | | | + + + + + | [facility] DEPARTMENT OF | [address] | [place] [address] | | | PATHOLOGY | [address] | | | + + + + + MAGNESIUM, PLASMA (07/05/2004 6:01 AM PST) + + + + + + | Component | Value | Ref Range | Performed | Pathologist | | | | | At | Signature | + + + + + + | MAGNESIUM,P | See cmnt | 1.8 - 2.5 mg/dL | [facility] | | | LASMA | | | DEPARTMENT | | | | | | OF | | | | | | PATHOLOGY | | + + + + + + + + | Specimen | + + | | + + + + + | Narrative | Performed At | + + + | staff | [facility] | | | DEPARTMENT OF | | | PATHOLOGY | + + + + + + + + | Performing | Address | City/State/Zipcode | Phone Number | | Organization | | | | + + + + + | [facility] DEPARTMENT OF | [address] | [place] [address] | | | PATHOLOGY | [address] | | | + + + + + | [facility] DEPARTMENT OF | [address] | [place] [address] | | | PATHOLOGY | [address] | | | + + + + + CBC ONLY WITH PLATELET (07/04/2004 3:20 AM PST) + + + + + + | Component | Value | Ref Range | Performed | Pathologist | | | | | At | Signature | + + + + + + | WHITE CELL | 8.4 | 4.4 - 11.0 K/cu | [facility] | | | COUNT | | mm | DEPARTMENT | | | | | | OF | | | | | | PATHOLOGY | | + + + + + + | RED CELL | 3.61 (L) | 3.65 - 5.10 | [facility] | | | COUNT | | M/cu mm | DEPARTMENT | | | | | | OF | | | | | | PATHOLOGY | | + + + + + + | HEMOGLOBIN | 10.9 (L) | 11.4 - 15.0 | [facility] | | | | | g/dL | DEPARTMENT | | | | | | OF | | | | | | PATHOLOGY | | + + + + + + | HEMATOCRIT | 31.2 (L) | 33.0 - 44.6 % | [facility] | | | | | | DEPARTMENT | | | | | | OF | | | | | | PATHOLOGY | | + + + + + + | MCV | 86.4 | 80.0 - 96.0 fL | [facility] | | | | | | DEPARTMENT | | | | | | OF | | | | | | PATHOLOGY | | + + + + + + | MCH | 30.3 | 29.0 - 32.0 pg | [facility] | | | | | | DEPARTMENT | | | | | | OF | | | | | | PATHOLOGY | | + + + + + + | MCHC | 35.0 | 33.4 - 35.5 | [facility] | | | | | g/dL | DEPARTMENT | | | | | | OF | | | | | | PATHOLOGY | | + + + + + + | RDW | 12.9 | 11.5 - 15.0 % | [facility] | | | | | | DEPARTMENT | | | | | | OF | | | | | | PATHOLOGY | | + + + + + + | PLATELET | 157 | 150 - 400 K/cu | [facility] | | | COUNT | | mm | DEPARTMENT | | | | | | OF | | | | | | PATHOLOGY | | + + + + + + | MPV | 8.7 | 7.4 - 10.4 fL | [facility] | | | | [...] DEPARTMENT OF | [address] | [place] [address] | | | PATHOLOGY | [address] | | | + + + + + | [facility] DEPARTMENT OF | [address] | [place] [address] | | | PATHOLOGY | [address] | | | + + + + + PROTHROMBIN TIME (07/04/2004 3:20 AM PST) + + + + + + | Component | Value | Ref Range | Performed | Pathologist | | | | | At | Signature | + + + + + + | INR | 1.33 (H)Comment: | 0.90 - 1.20 INR | [facility] | | | | PT INR Therapeutic | | DEPARTMENT | | | | ranges for full | | OF | | | | anticoagulation: | | PATHOLOGY | | | | INR for | | | | | | Venous Thromboembolism | | | | | | | | | | | | (2.0-3.0)INR | | | | | | INR for most | | | | | | patients with mech. | | | | | | valves (2.5-3.5)INR | | | | + + + + + + + + | Specimen | + + | | + + + + + | Narrative | Performed At | + + + | Specimen hemolyzed | [facility] | | | DEPARTMENT OF | | | PATHOLOGY | + + + + + + + + | Performing | Address | City/State/Zipcode | Phone Number | | Organization | | | | + + + + + | [facility] DEPARTMENT OF | [address] | [place] [address] | | | PATHOLOGY | [address] | | | + + + + + | [facility] DEPARTMENT OF | [address] | [place] [address] | | | PATHOLOGY | [address] | | | + + + + + APTT (ACT. PART. THROMBO TIME) (07/04/2004 3:20 AM PST) + + + + + + | Component | Value | Ref Range | Performed | Pathologist | | | | | At | Signature | + + + + + + | APTT | 31.4Comment: | 26.0 - 36.0 | [facility] | | | | APTT Therapeutic Range | seconds | DEPARTMENT | | | | | | OF | | | | | | PATHOLOGY | | | | (75-120)sec | | | | | | Heparin levels | | | | | | of 0.35-0.7 U/mL | | | | + + + + + + + + | Specimen | + + | | + + + + + | Narrative | Performed At | + + + | Specimen hemolyzed | [facility] | | | DEPARTMENT OF | | | PATHOLOGY | + + + + + + + + | Performing | Address | City/State/Zipcode | Phone Number | | Organization | | | | + + + + + | [facility] DEPARTMENT OF | [address] | [place] [address] | | | PATHOLOGY | [address] | | | + + + + + | [facility] DE[facility]MENT OF | [address] | [place] [address] | | | PATHOLOGY | [address] | | | + + + + + COMP METABOLIC SET (07/04/2004 3:20 AM PST) + +---------+ + + + | Component | Value | Ref Range | Performed | Pathologist | | | | | At | Signature | + +---------+ + + + | GLUCOSE, | 100 | 65 - 110 mg/dL | [facility] | | | PLASMA | | | DEPARTMENT | | | (LAB) | | | OF | | | | | | PATHOLOGY | | + +---------+ + + + | BUN, PLASMA | 4 (L) | 6 - 20 mg/dL | [...] +---------+ + + + | TOTAL | 4.8 (L) | 6.1 - 7.9 g/dL | [facility] | | | PROTEIN, | | | DEPARTMENT | | | PLASMA | | | OF | | | (LAB) | | | PATHOLOGY | | + +---------+ + + + | ALBUMIN, | 2.2 (L) | 3.5 - 4.7 g/dL | [...] +---------+ + + + | BILIRUBIN | 1.1 | 0.3 - 1.2 mg/dL | [facility] | | | TOTAL | | | DEPARTMENT | | | | | | OF | | | | | | PATHOLOGY | | + +---------+ + + + | ALK PHOS | 92 | 53 - 141 U/L | [facility] | | | | | | DEPARTMENT | | | | | | OF | | | | | | PATHOLOGY | | + +---------+ + + + | AST(SGOT) | 40 | 15 - 41 U/L | [facility] | | | | | | DEPARTMENT | | | | | | OF | | | | | | PATHOLOGY | | + +---------+ + + + | SODIUM, | 137 | 136 - 145 | [facility] | | | PLASMA | | mmol/L | DEPARTMENT | | | (LAB) | | | OF | | | | | | PATHOLOGY | | + +---------+ + + + | POTASSIUM, | 4.1 | 3.5 - 5.1 | [facility] | [...] + | TOTAL CO2, | 29 | 23 - 29 mmol/L | [facility] | | | PLASMA | | | DEPARTMENT | | | (LAB) | | | OF | | | | | | PATHOLOGY | | + +---------+ + + + | ALT (SGPT) | 67 (H) | 13 - 48 U/L | [facility] [...] | + + + + + | [facility] | [facility] | [place] [address] | | | PATHOLOGY | [address] | | | + + + + + | [facility] DEPARTMENT OF | [address] | [place] [address] | | | PATHOLOGY | [address] | | | + + + + + MAGNESIUM, PLASMA (07/04/2004 3:20 AM PST) + +---------+ + + + | Component | Value | Ref Range | Performed | Pathologist | | | | | At | Signature | + +---------+ + + + | MAGNESIUM,P | 1.7 (L) | 1.8 - 2.5 mg/dL | [facility] [...] + + + + + | [facility] DEPARTMENT OF | [address] | [place] [address] | | | PATHOLOGY | [address] | | | + + + + + | [facility] DEPARTMENT OF | [address] | [place] [address] | | | PATHOLOGY | [address] | | | + + + + + PHOSPHORUS, PLASMA (07/04/2004 3:20 AM PST) + +---------+ + + + | Component | Value | Ref Range | Performed | Pathologist | | | | | At | Signature | + +---------+ + + + | PHOSPHORUS, | 2.3 (L) | 2.4 - 4.7 mg/dL | [facility] [...] + + + + + | [facility] DEPARTMENT OF | [address] | [place] [address] | | | PATHOLOGY | [address] | | | + + + + + | [facility] DEPARTMENT OF | [address] | [place] [address] | | | PATHOLOGY | [address] | | | + + + + + DIFFERENTIAL (07/03/2004 1:20 AM PST) + +---------+ + + + | Component | Value | Ref Range | Performed | Pathologist | | | | | At | Signature | + +---------+ + + + | NEUTROPHIL | 81 (H) | 50 - 70 % | [facility] | | | % | | | DEPARTMENT | | | | | | OF | | | | | | PATHOLOGY | | + +---------+ + + + | LYMPHOCYTE | 10 (L) | 18 - 42 % | [facility] | | | % | | | DEPARTMENT | | | | | | OF | | | | | | PATHOLOGY | | + +---------+ + + + | MONOCYTE % | 8 | 2 - 8 % | [facility] | | | | | | DEPARTMENT | | | | | | OF | | | | | | PATHOLOGY | | + +---------+ + + + | EOS % | 1 | 1 - 3 % | [facility] | | | | | | DEPARTMENT | | | | | | OF | | | | | | PATHOLOGY | | + +---------+ + + + | BASO % | 0 | <3 % | [facility] | | | | | | DEPARTMENT | | | | | | OF | | | | | | PATHOLOGY | | + +---------+ + + + | NEUTROPHIL | 8.3 (H) | 1.8 - 7.7 K/cu | [facility] | | | # | | mm | DEPARTMENT | | | | | | OF | | | | | | PATHOLOGY | | + +---------+ + + + | LYMPHOCYTE | 1.0 | 1.0 - 4.8 K/cu | [facility] | | | # | | mm | DEPARTMENT | | | | | | OF | | | | | | PATHOLOGY | | + +---------+ + + + | MONOCYTE # | 0.8 (H) | 0.1 - 0.6 K/cu | [facility] | | | | | mm | DEPARTMENT | | | | | | OF | | | | | | PATHOLOGY | | + +---------+ + + + | EOS # | 0.1 | <0.6 K/cu mm | [facility] | | | | | | DEPARTMENT | | | | | | OF | | | | | | PATHOLOGY | | + +---------+ + + + | BASO # | 0.0 | <0.3 | [facility] | | | | | [...] | + + + + + | [facility] | [address] | [place] [address] | | | PATHOLOGY | [address] | | | + + + + + | [facility] | [address] | [place] [address] | | | PATHOLOGY | [address] | | | + + + + + CBC, WITH DIFFERENTIAL (07/03/2004 1:20 AM PST) + +-------+ + + + | Component | Value | Ref Range | Performed | Pathologist | | | | | At | Signature | + +-------+ + + + | WHITE CELL | 10.3 | 4.4 - 11.0 K/cu | [facility] | | | COUNT | | mm | DEPARTMENT | | | | | | OF | | | | | | PATHOLOGY | | + +-------+ + + + | RED CELL | 3.90 | 3.65 - 5.10 | [facility] | | | COUNT | | M/cu mm | DEPARTMENT | | | | | | OF | | | | | | PATHOLOGY | | + +-------+ + + + | HEMOGLOBIN | 11.5 | 11.4 - 15.0 | [facility] | | | | | g/dL | DEPARTMENT | | | | | | OF | | | | | | PATHOLOGY | | + +-------+ + + + | HEMATOCRIT | 33.6 | 33.0 - 44.6 % | [facility] | | | | | | DEPARTMENT | | | | | | OF | | | | | | PATHOLOGY | | + +-------+ + + + | MCV | 86.2 | 80.0 - 96.0 fL | [facility] | | | | | | DEPARTMENT | | | | | | OF | | | | | | PATHOLOGY | | + +-------+ + + + | MCH | 29.6 | 29.0 - 32.0 pg | [facility] | | | | | | DEPARTMENT | | | | | | OF | | | | | | PATHOLOGY | | + +-------+ + + + | MCHC | 34.3 | 33.4 - 35.5 | [facility] | | | | | g/dL | DEPARTMENT | | | | | | OF | | | | | | PATHOLOGY | | + +-------+ + + + | RDW | 12.8 | 11.5 - 15.0 % | [facility] | | | | | | DEPARTMENT | | | | | | OF | | | | | | PATHOLOGY | | + +-------+ + + + | PLATELET | 167 | 150 - 400 K/cu | [facility] | | | COUNT | | mm | DEPARTMENT | | | | | | OF | | | | | | PATHOLOGY | | + +-------+ + + + | MPV | 9.0 | 7.4 - 10.4 fL | [facility] | | | | | | DEPARTMENT [...] + + + + + | [facility] DEPARTMENT OF | [address] | [place] [address] | | | PATHOLOGY | [address] | | | + + + + + | [facility] DEPARTMENT OF | [address] | [place] [address] | | | PATHOLOGY | [address] | | | + + + + + COMP METABOLIC SET (07/03/2004 1:20 AM PST) + +---------+ + + + | Component | Value | Ref Range | Performed | Pathologist | | | | | At | Signature | + +---------+ + + + | GLUCOSE, | 141 (H) | 65 - 110 mg/dL | [...] +---------+ + + + | CREATININE | 0.5 (L) | 0.6 - 1.1 mg/dL | [facility] | | | PLASMA | | | DEPARTMENT | | | (LAB) | | | OF | | | | | | PATHOLOGY | | + +---------+ + + + | TOTAL | 5.1 (L) | 6.1 - 7.9 g/dL | [facility] | | | PROTEIN, | | | DEPARTMENT | | | PLASMA | | | OF | | | (LAB) | | | PATHOLOGY | | + +---------+ + + + | ALBUMIN, | 2.4 (L) | 3.5 - 4.7 g/dL | [...] + + + | ALK PHOS | 106 | 53 - 141 U/L | [facility] | | | | | | DEPARTMENT | | | | | | OF | | | | | | PATHOLOGY | | + +---------+ + + + | AST(SGOT) | 60 (H) | 15 - 41 U/L | [facility] | | | | | | DEPARTMENT | | | | | | OF | | | | | | PATHOLOGY | | + +---------+ + + + | SODIUM, | 128 (L) | 136 - 145 | [facility] | | | PLASMA | | mmol/L | DEPARTMENT | | | (LAB) | | | OF | | | | | | PATHOLOGY | | + +---------+ + + + | POTASSIUM, | 4.1 | 3.5 - 5.1 | [facility] | | | PLASMA | | mmol/L | DEPARTMENT | | | (LAB) | | | OF | | | | | | PATHOLOGY | | + +---------+ + + + | CHLORIDE, | 98 | 98 - 107 mmol/L | [facility] | | | PLASMA | | | DEPARTMENT | | | (LAB) | | | OF | | | | | | PATHOLOGY | | + +---------+ + + + | TOTAL CO2, | 26 | 23 - 29 mmol/L | [facility] | | | PLASMA | | | DEPARTMENT | | | (LAB) | | | OF | | | | | | PATHOLOGY | | + +---------+ + + + | ALT (SGPT) | 91 (H) | 13 - 48 U/L | [facility] [...] | + + + + + | [facility] | [address] | [place] [address] | | | PATHOLOGY | [address] | | | + + + + + | [facility] | [facility] [address] | [place] [address] | | | PATHOLOGY | [address] | | | + + + + + MAGNESIUM, PLASMA (07/03/2004 1:20 AM PST) + +-------+ + + + [...] + + + + + | [facility] DEPARTMENT OF | [address] | [place] [address] | | | PATHOLOGY | [address] | | | + + + + + | [facility] DEPARTMENT OF | [address] | [place] [address] | | | PATHOLOGY | [address] | | | + + + + + PHOSPHORUS, PLASMA (07/03/2004 1:20 AM PST) + +---------+ + + + | Component | Value | Ref Range | Performed | Pathologist | | | | | At | Signature | + +---------+ + + + | PHOSPHORUS, | 1.3 (L) | 2.4 - 4.7 mg/dL | [facility] | | | PLASMA | | | [...] | + + + + + | [facility] | [address] | [place] [address] | | | PATHOLOGY | [address] | | | + + + + + | [facility] | [address] [address] | [place] [address] | | | PATHOLOGY | [address] | | | + + + + + DIFFERENTIAL (07/02/2004 3:10 AM PST) + +---------+ + + + | Component | Value | Ref Range | Performed | Pathologist | | | | | At | Signature | + +---------+ + + + | NEUTROPHIL | 86 (H) | 50 - 70 % | [facility] | | | % | | | DEPARTMENT | | | | | | OF | | | | | | PATHOLOGY | | + +---------+ + + + | LYMPHOCYTE | 7 (L) | 18 - 42 % | [facility] | | | % | | | DEPARTMENT | | | | | | OF | | | | | | PATHOLOGY | | + +---------+ + + + | MONOCYTE % | 7 | 2 - 8 % | [facility] | | | | | | DEPARTMENT | | | | | | OF | | | | | | PATHOLOGY | | + +---------+ + + + | EOS % | 1 | 1 - 3 % | [facility] | | | | | | DEPARTMENT | | | | | | OF | | | | | | PATHOLOGY | | + +---------+ + + + | BASO % | 0 | <3 % | [facility] | | | | | | DEPARTMENT | | | | | | OF | | | | | | PATHOLOGY | | + +---------+ + + + | NEUTROPHIL | 8.9 (H) | 1.8 - 7.7 K/cu | [facility] | | | # | | mm | DEPARTMENT | | | | | | OF | | | | | | PATHOLOGY | | + +---------+ + + + | LYMPHOCYTE | 0.7 (L) | 1.0 - 4.8 K/cu | [facility] | | | # | | mm | DEPARTMENT | | | | | | OF | | | | | | PATHOLOGY | | + +---------+ + + + | MONOCYTE # | 0.7 (H) | 0.1 - 0.6 K/cu | [facility] | | | | | mm | DEPARTMENT | | | | | | OF | | | | | | PATHOLOGY | | + +---------+ + + + | EOS # | 0.1 | <0.6 K/cu mm | [facility] | | | | | | DEPARTMENT | | | | | | OF | | | | | | PATHOLOGY | | + +---------+ + + + | BASO # | 0.0 | <0.3 | [facility] | | | | | [...] DEPARTMENT OF | [address] | [place] [address] | | | PATHOLOGY | [address] | | | + + + + + | [facility] DEPARTMENT OF | [address] | [place] [address] | | | PATHOLOGY | [address] | | | + + + + + CBC, WITH DIFFERENTIAL (07/02/2004 3:10 AM PST) + + + + + + | Component | Value | Ref Range | Performed | Pathologist | | | | | At | Signature | + + + + + + | WHITE CELL | 10.4 | 4.4 - 11.0 K/cu | [facility] | | | COUNT | | mm | DEPARTMENT | | | | | | OF | | | | | | PATHOLOGY | | + + + + + + | RED CELL | 3.78 | 3.65 - 5.10 | [facility] | | | COUNT | | M/cu mm | DEPARTMENT | | | | | | OF | | | | | | PATHOLOGY | | + + + + + + | HEMOGLOBIN | 11.1 (L) | 11.4 - 15.0 | [facility] | | | | | g/dL | DEPARTMENT | | | | | | OF | | | | | | PATHOLOGY | | + + + + + + | HEMATOCRIT | 32.8 (L) | 33.0 - 44.6 % | [facility] | | | | | | DEPARTMENT | | | | | | OF | | | | | | PATHOLOGY | | + + + + + + | MCV | 86.8 | 80.0 - 96.0 fL | [facility] | | | | | | DEPARTMENT | | | | | | OF | | | | | | PATHOLOGY | | + + + + + + | MCH | 29.4 | 29.0 - 32.0 pg | [facility] | | | | | | DEPARTMENT | | | | | | OF | | | | | | PATHOLOGY | | + + + + + + | MCHC | 33.8 | 33.4 - 35.5 | [facility] | | | | | g/dL | DEPARTMENT | | | | | | OF | | | | | | PATHOLOGY | | + + + + + + | RDW | 12.7 | 11.5 - 15.0 % | [facility] | | | | | | DEPARTMENT | | | | | | OF | | | | | | PATHOLOGY | | + + + + + + | PLATELET | 119 (L) | 150 - 400 K/cu | [facility] | | | COUNT | | mm | DEPARTMENT | | | | | | OF | | | | | | PATHOLOGY | | + + + + + + | MPV | 9.1 | 7.4 - 10.4 fL | [facility] | | | | [...] + + + + + | [facility] DEPARTMENT OF | [facility] | [place] [address] | | | PATHOLOGY | [address] | | | + + + + + | [facility] DEPARTMENT OF | [address] | [place] [address] | | | PATHOLOGY | [address] | | | + + + + + COMP METABOLIC SET (07/02/2004 3:10 AM PST) + +---------+ + + + | Component | Value | Ref Range | Performed | Pathologist | | | | | At | Signature | + +---------+ + + + | GLUCOSE, | 161 (H) | 65 - 110 mg/dL | [...] +---------+ + + + | CREATININE | 0.5 (L) | 0.6 - 1.1 mg/dL | [facility] | | | PLASMA | | | DEPARTMENT | | | (LAB) | | | OF | | | | | | PATHOLOGY | | + +---------+ + + + | TOTAL | 4.8 (L) | 6.1 - 7.9 g/dL | [facility] | | | PROTEIN, | | | DEPARTMENT | | | PLASMA | | | OF | | | (LAB) | | | PATHOLOGY | | + +---------+ + + + | ALBUMIN, | 2.4 (L) | 3.5 - 4.7 g/dL | [facility] | | | PLASMA | | | DEPARTMENT | | | (LAB) | | | OF | | | | | | PATHOLOGY | | + +---------+ + + + | CALCIUM, | 7.8 (L) | 8.5 - 10.5 | [facility] | | | PLASMA | | mg/dL | DEPARTMENT | | | (LAB) | | | OF | | | | | | PATHOLOGY | | + +---------+ + + + | BILIRUBIN | 0.6 | 0.3 - 1.2 mg/dL | [facility] | | | TOTAL | | | DEPARTMENT | | | | | | OF | | | | | | PATHOLOGY | | + +---------+ + + + | ALK PHOS | 89 | 53 - 141 U/L | [facility] | | | | | | DEPARTMENT | | | | | | OF | | | | | | PATHOLOGY | | + +---------+ + + + | AST(SGOT) | 82 (H) | 15 - 41 U/L | [facility] | | | | | | DEPARTMENT | | | | | | OF | | | | | | PATHOLOGY | | + +---------+ + + + | SODIUM, | 131 (L) | 136 - 145 | [facility] | | | PLASMA | | mmol/L | DEPARTMENT | | | (LAB) | | | OF | | | | | | PATHOLOGY | | + +---------+ + + + | POTASSIUM, | 4.0 [...] + + + | ALT (SGPT) | 109 (H) | 13 - 48 U/L | [facility] [...] + | [facility] DEPARTMENT OF | [address] | [place] [address] | | | PATHOLOGY | [address] | | | + + + + + | [facility] DEPARTMENT OF | [address] | [place] [address] | | | PATHOLOGY | [address] | | | + + + + + MAGNESIUM, PLASMA (07/02/2004 3:10 AM PST) + +-------+ + + + | Component | Value | Ref Range | Performed | Pathologist | | | | | At | Signature | + +-------+ + + + | MAGNESIUM,P | 1.9 | 1.8 - 2.5 mg/dL | [facility] [...] + + + + + | [facility] DEPARTMENT OF | [address] | [place] [address] | | | PATHOLOGY | [address] | | | + + + + + | [facility] DEPARTMENT OF | [address] | [place] [address] | | | PATHOLOGY | [address] | | | + + + + + PHOSPHORUS, PLASMA (07/02/2004 3:10 AM PST) + +---------+ + + + | Component | Value | Ref Range | Performed | Pathologist | | | | | At | Signature | + +---------+ + + + | PHOSPHORUS, | 1.5 (L) | 2.4 - 4.7 mg/dL | [facility] [...] | + + + + + | [facility] | [address] | [place] [address] | | | PATHOLOGY | [address] | | | + + + + + | [facility] | [address] | [place] [address] | | | PATHOLOGY | [address] | | | + + + + + COMP METABOLIC SET (07/01/2004 11:50 AM PST) + +---------+ + + + | Component | Value | Ref Range | Performed | Pathologist | | | | | At | Signature | + +---------+ + + + | GLUCOSE, | 198 (H) | 65 - 110 mg/dL | [facility] | | | PLASMA | | | DEPARTMENT | | | (LAB) | | | OF | | | | | | PATHOLOGY | | + +---------+ + + + | BUN, PLASMA | 4 (L) | 6 - 20 mg/dL | [...] +---------+ + + + | TOTAL | 5.0 (L) | 6.1 - 7.9 g/dL | [...] +---------+ + + + | CALCIUM, | 7.5 (L) | 8.5 - 10.5 | [facility] | | | PLASMA | | mg/dL | DEPARTMENT | | | (LAB) | | | OF | | | | | | PATHOLOGY | | + +---------+ + + + | BILIRUBIN | 1.0 | 0.3 - 1.2 mg/dL | [facility] | | | TOTAL | | | DEPARTMENT | | | | | | OF | | | | | | PATHOLOGY | | + +---------+ + + + | ALK PHOS | 87 | 53 - 141 U/L | [facility] | | | | | | DEPARTMENT | | | | | | OF | | | | | | PATHOLOGY | | + +---------+ + + + | AST(SGOT) | 119 (H) | 15 - 41 U/L | [facility] | | | | | | DEPARTMENT | | | | | | OF | | | | | | PATHOLOGY | | + +---------+ + + + | SODIUM, | 128 (L) | 136 - 145 | [facility] | | | PLASMA | | mmol/L | DEPARTMENT | | | (LAB) | | | OF | | | | | | PATHOLOGY | | + +---------+ + + + | POTASSIUM, | 4.4 | 3.5 - 5.1 | [facility] | | | PLASMA | | mmol/L | DEPARTMENT | | | (LAB) | | | OF | | | | | | PATHOLOGY | | + +---------+ + + + | CHLORIDE, | 98 | 98 - 107 mmol/L | [facility] [...] + + + | ALT (SGPT) | 123 (H) | 13 - 48 U/L | [facility] [...] DEPARTMENT OF | [address] | [place], [place] [address] | | | PATHOLOGY | [address] | | | + + + + + | [facility] DEPARTMENT OF | [address] | [place] [address] | | | PATHOLOGY | [address] | | | + + + + + MAGNESIUM, PLASMA (07/01/2004 11:50 AM PST) + +-------+ + + + | Component | Value | Ref Range | Performed | Pathologist | | | | | At | Signature | + +-------+ + + + | MAGNESIUM,P | 2.1 | 1.8 - 2.5 mg/dL | [facility] [...] | + + + + + | [facility] | [address] | [place] [address] | | | PATHOLOGY | [address] | | | + + + + + | [facility] | [address] | [place] [address] | | | PATHOLOGY | [address] | | | + + + + + PHOSPHORUS, PLASMA (07/01/2004 11:50 AM PST) + +-------+ + + + | Component | Value | Ref Range | Performed | Pathologist | | | | | At | Signature | + +-------+ + + + | PHOSPHORUS, | 3.6 | 2.4 - 4.7 mg/dL | [facility] [...] DEPARTMENT OF | [address] | [place] [address] | | | PATHOLOGY | [address] | | | + + + + + | [facility] DEPARTMENT OF | [address] | [place] [address] | | | PATHOLOGY | [address] | | | + + + + + DIFFERENTIAL (07/01/2004 12:45 AM PST) + + + + + + | Component | Value | Ref Range | Performed | Pathologist | | | | | At | Signature | + + + + + + | NEUTROPHIL | 81 (H) | 50 - 70 % | [facility] | | | % | | | DEPARTMENT | | | | | | OF | | | | | | PATHOLOGY | | + + + + + + | LYMPHOCYTE | 13 (L) | 18 - 42 % | [facility] | | | % | | | DEPARTMENT | | | | | | OF | | | | | | PATHOLOGY | | + + + + + + | MONOCYTE % | 6 | 2 - 8 % | [facility] | | | | | | DEPARTMENT | | | | | | OF | | | | | | PATHOLOGY | | + + + + + + | EOS % | 1 | 1 - 3 % | [facility] | | | | | | DEPARTMENT | | | | | | OF | | | | | | PATHOLOGY | | + + + + + + | BASO % | 0 | <3 % | [facility] | | | | | | DEPARTMENT | | | | | | OF | | | | | | PATHOLOGY | | + + + + + + | NEUTROPHIL | 10.5 (H) | 1.8 - 7.7 K/cu | [facility] | | | # | | mm | DEPARTMENT | | | | | | OF | | | | | | PATHOLOGY | | + + + + + + | LYMPHOCYTE | 1.7 | 1.0 - 4.8 K/cu | [facility] | | | # | | mm | DEPARTMENT | | | | | | OF | | | | | | PATHOLOGY | | + + + + + + | MONOCYTE # | 0.8 (H) | 0.1 - 0.6 K/cu | [facility] | | | | | mm | DEPARTMENT | | | | | | OF | | | | | | PATHOLOGY | | + + + + + + | EOS # | 0.1 | <0.6 K/cu mm | [facility] | | | | | | DEPARTMENT | | | | | | OF | | | | | | PATHOLOGY | | + + + + + + | BASO # | 0.0 | <0.3 | [facility] | | | | | | DEPARTMENT | | | | | | OF | | | | | | PATHOLOGY | | + + + + + + + + | Specimen | + + | | + + + + + | Narrative | Performed At | + + + | * Corrected 07/01/04 02:33: MARÍANEL COMMENTS, prev report: Slide | [facility] | | review pending. | DEPARTMENT OF | | | PATHOLOGY | + + + + + + + + | Performing | Address | City/State/Zipcode | Phone Number | | Organization | | | | + + + + + | [facility] DEPARTMENT OF | [address] | [place] [address] | | | PATHOLOGY | [address] | | | + + + + + | [facility] DEPARTMENT OF | [address] | [place] [address] | | | PATHOLOGY | [address] | | | + + + + + CBC, WITH DIFFERENTIAL (07/01/2004 12:45 AM PST) + + + + + + | Component | Value | Ref Range | Performed | Pathologist | | | | | At | Signature | + + + + + + | WHITE CELL | 13.0 (H) | 4.4 - 11.0 K/cu | [facility] | | | COUNT | | mm | DEPARTMENT | | | | | | OF | | | | | | PATHOLOGY | | + + + + + + | RED CELL | 3.94 | 3.65 - 5.10 | [facility] | | | COUNT | | M/cu mm | DEPARTMENT | | | | | | OF | | | | | | PATHOLOGY | | + + + + + + | HEMOGLOBIN | 11.4 | 11.4 - 15.0 | [facility] | | | | | g/dL | DEPARTMENT | | | | | | OF | | | | | | PATHOLOGY | | + + + + + + | HEMATOCRIT | 34.2 | 33.0 - 44.6 % | [facility] | | | | | | DEPARTMENT | | | | | | OF | | | | | | PATHOLOGY | | + + + + + + | MCV | 86.8 | 80.0 - 96.0 fL | [facility] | | | | | | DEPARTMENT | | | | | | OF | | | | | | PATHOLOGY | | + + + + + + | MCH | 29.0 | 29.0 - 32.0 pg | [facility] | | | | | | DEPARTMENT | | | | | | OF | | | | | | PATHOLOGY | | + + + + + + | MCHC | 33.4 | 33.4 - 35.5 | [facility] | | | | | g/dL | DEPARTMENT | | | | | | OF | | | | | | PATHOLOGY | | + + + + + + | RDW | 12.5 | 11.5 - 15.0 % | [facility] | | | | | | DEPARTMENT | | | | | | OF | | | | | | PATHOLOGY | | + + + + + + | PLATELET | 132 (L) | 150 - 400 K/cu | [facility] | | | COUNT | | mm | DEPARTMENT | | | | | | OF | | | | | | PATHOLOGY | | + + + + + + | MPV | 9.2 | 7.4 - 10.4 fL | [facility] | | | | | | DEPARTMENT | | | | | | OF | | | | | | PATHOLOGY | | + + + + + + | DIFF | <or= 10% bands seen on | | [facility] | | | COMMENTS | scan. | | DEPARTMENT | | | | | | OF | | | | | | PATHOLOGY | | + + + + + + | CBC | Final automated | | [facility] | | | COMMENTS | differential report. | | DEPARTMENT | | | | Smear reviewed. | | OF | | | | | | PATHOLOGY | | + + + + + + + + | Specimen | + + | | + + + + + | Narrative | Performed At | + + + | * Corrected 07/01/04 02:33: MATTIE COMMENTS, prev report: Slide | [facility] | | review pending. | DEPARTMENT OF | | | PATHOLOGY | + + + + + + + + | Performing | Address | City/State/Zipcode | Phone Number | | Organization | | | | + + + + + | [facility] | [address] | [place] [address] | | | PATHOLOGY | [address] | | | + + + + + | [facility] | [address] | [place] [address] | | | PATHOLOGY | [address] | | | + + + + + SLIDE REVIEW (07/01/2004 12:45 AM PST) + + | Specimen | + + | | + + + + + | Narrative | Performed At | + + + | * Corrected 07/01/04 02:33: MATTIE STEINER, prev report: Jae | EDMAR | | review pending. | DEPARTMENT OF | | | PATHOLOGY | + + + + + + + + | Performing | Address | City/State/Zipcode | Phone Number | | Organization | | | | + + + + + | [facility] DEPARTMENT OF | [address] | [place] [address] | | | PATHOLOGY | [address] | | | + + + + + | [facility] DEPARTMENT OF | [address] | [place] [address] | | | PATHOLOGY | [address] | | | + + + + + BASIC METABOLIC SET (07/01/2004 12:45 AM PST) + +---------+ + + + | Component | Value | Ref Range | Performed | Pathologist | | | | | At | Signature | + +---------+ + + + | GLUCOSE, | 157 (H) | 65 - 110 mg/dL | [facility] | | | PLASMA | | | DEPARTMENT | | | (LAB) | | | OF | | | | | | PATHOLOGY | | + +---------+ + + + | BUN, PLASMA | 5 (L) | 6 - 20 mg/dL | [...] +---------+ + + + | SODIUM, | 134 (L) | 136 - 145 | [facility] [...] +---------+ + + + | CHLORIDE, | 105 | 98 - 107 mmol/L | [facility] [...] +---------+ + + + | CALCIUM, | 7.7 (L) | 8.5 - 10.5 | [facility] [...] DEPARTMENT OF | [address] | [place] [address] | | | PATHOLOGY | [address] | | | + + + + + | [facility] DEPARTMENT OF | [address] | [place] [address] | | | PATHOLOGY | [address] | | | + + + + + CALCIUM, PLASMA (07/01/2004 12:45 AM PST) + +---------+ + + + | Component | Value | Ref Range | Performed | Pathologist | | | | | At | Signature | + +---------+ + + + | CALCIUM, | 7.7 (L) | 8.5 - 10.5 | [facility] [...] | + + + + + | [facility] | [address] | [place] [address] | | | PATHOLOGY | [address] | | | + + + + + | [facility] | [address] | [place] [address] | | | PATHOLOGY | [address] | | | + + + + + MAGNESIUM, PLASMA (07/01/2004 12:45 AM PST) + +---------+ + + + | Component | Value | Ref Range | Performed | Pathologist | | | | | At | Signature | + +---------+ + + + | MAGNESIUM,P | 1.7 (L) | 1.8 - 2.5 mg/dL | [facility] | | | LASMA | | | [...] + + + + + | [facility] DEPARTMENT OF | [address] | [place] [address] | | | PATHOLOGY | [address] | | | + + + + + | [facility] DEPARTMENT OF | [address] | [place] [address] | | | PATHOLOGY | [address] | | | + + + + + PHOSPHORUS, PLASMA (07/01/2004 12:45 AM PST) + +---------+ + + + | Component | Value | Ref Range | Performed | Pathologist | | | | | At | Signature | + +---------+ + + + | PHOSPHORUS, | 1.6 (L) | 2.4 - 4.7 mg/dL | [facility] [...] | + + + + + | [facility] | [address] | [place] [address] | | | PATHOLOGY | [address] | | | + + + + + | [facility] | [address] [place] [address] [address] | [place] [address] | | | PATHOLOGY | [address] | | | + + + + + CBC ONLY WITH PLATELET (06/30/2004 3:30 AM PST) + +-------+ + + + | Component | Value | Ref Range | Performed | Pathologist | | | | | At | Signature | + +-------+ + + + | WHITE CELL | 10.0 | 4.4 - 11.0 K/cu | [facility] | | | COUNT | | mm | DEPARTMENT | | | | | | OF | | | | | | PATHOLOGY | | + +-------+ + + + | RED CELL | 4.08 | 3.65 - 5.10 | [facility] | | | COUNT | | M/cu mm | DEPARTMENT | | | | | | OF | | | | | | PATHOLOGY | | + +-------+ + + + | HEMOGLOBIN | 12.4 | 11.4 - 15.0 | [facility] | | | | | g/dL | DEPARTMENT | | | | | | OF | | | | | | PATHOLOGY | | + +-------+ + + + | HEMATOCRIT | 35.5 | 33.0 - 44.6 % | [facility] | | | | | | DEPARTMENT | | | | | | OF | | | | | | PATHOLOGY | | + +-------+ + + + | MCV | 86.9 | 80.0 - 96.0 fL | [facility] | | | | | | DEPARTMENT | | | | | | OF | | | | | | PATHOLOGY | | + +-------+ + + + | MCH | 30.4 | 29.0 - 32.0 pg | [facility] | | | | | | DEPARTMENT | | | | | | OF | | | | | | PATHOLOGY | | + +-------+ + + + | MCHC | 35.0 | 33.4 - 35.5 | [facility] | | | | | g/dL | DEPARTMENT | | | | | | OF | | | | | | PATHOLOGY | | + +-------+ + + + | RDW | 12.6 | 11.5 - 15.0 % | [facility] | | | | | | DEPARTMENT | | | | | | OF | | | | | | PATHOLOGY | | + +-------+ + + + | PLATELET | 157 | 150 - 400 K/cu | [facility] | | | COUNT | | mm | DEPARTMENT | | | | | | OF | | | | | | PATHOLOGY | | + +-------+ + + + | MPV | 9.7 | 7.4 - 10.4 fL | [facility] | | | | [...] DEPARTMENT OF | [address] | [place] [address] | | | PATHOLOGY | [address] | | | + + + + + | [facility] DEPARTMENT OF | [address] | [place] [address] | | | PATHOLOGY | [address] | | | + + + + + PROTHROMBIN TIME (06/30/2004 3:30 AM PST) + + + + + + | Component | Value | Ref Range | Performed | Pathologist | | | | | At | Signature | + + + + + + | INR | 1.30 (H)Comment: | 0.90 - 1.20 INR | [facility] | | | | PT INR Therapeutic | | DEPARTMENT | | | | ranges for full | | OF | | | | anticoagulation: | | PATHOLOGY | | | | INR for | | | | | | Venous Thromboembolism | | | | | | | | | | | | (2.0-3.0)INR | | | | | | INR for most | | | | | | patients with mech. | | | | | | valves (2.5-3.5)INR | | | | + + + + + + + + | Specimen | + + | | + + + + + + + | Performing | Address | City/State/Zipcode | Phone Number | | Organization | | | | + + + + + | [facility] | [address] | [place] [address] | | | PATHOLOGY | [address] | | | + + + + + | [facility] | [address] | [place] [address] | | | PATHOLOGY | [address] | | | + + + + + APTT (ACT. PART. THROMBO TIME) (06/30/2004 3:30 AM PST) + + + + + + | Component | Value | Ref Range | Performed | Pathologist | | | | | At | Signature | + + + + + + | APTT | 33.8Comment: | 26.0 - 36.0 | [facility] | | | | APTT Therapeutic Range | seconds | DEPARTMENT | | | | | | OF | | | | | | PATHOLOGY | | | | (75-120)sec | | | | | | Heparin levels | | | | | | of 0.35-0.7 U/mL | | | | + + + + + + + + | Specimen | + + | | + + + + + + + | Performing | Address | City/State/Zipcode | Phone Number | | Organization | | | | + + + + + | [facility] | [address] | [place] [address] | | | PATHOLOGY | [address] | | | + + + + + | [facility] | [address] [place] [address] | [place] [address] | | | PATHOLOGY | [address] | | | + + + + + COMP METABOLIC SET (06/30/2004 3:30 AM PST) + +---------+ + + + | Component | Value | Ref Range | Performed | Pathologist | | | | | At | Signature | + +---------+ + + + | GLUCOSE, | 169 (H) | 65 - 110 mg/dL | [...] +---------+ + + + | TOTAL | 5.1 (L) | 6.1 - 7.9 g/dL | [facility] | | | PROTEIN, | | | DEPARTMENT | | | PLASMA | | | OF | | | (LAB) | | | PATHOLOGY | | + +---------+ + + + | ALBUMIN, | 3.2 (L) | 3.5 - 4.7 g/dL | [facility] | | | PLASMA | | | DEPARTMENT | | | (LAB) | | | OF | | | | | | PATHOLOGY | | + +---------+ + + + | CALCIUM, | 7.7 (L) | 8.5 - 10.5 | [facility] [...] + + + | ALK PHOS | 87 | 53 - 141 U/L | [facility] | | | | | | DEPARTMENT | | | | | | OF | | | | | | PATHOLOGY | | + +---------+ + + + | AST(SGOT) | 312 (H) | 15 - 41 U/L | [facility] | | | | | | DEPARTMENT | | | | | | OF | | | | | | PATHOLOGY | | + +---------+ + + + | SODIUM, | 139 | 136 - 145 | [facility] | | | PLASMA | | mmol/L | DEPARTMENT | | | (LAB) | | | OF | | | | | | PATHOLOGY | | + +---------+ + + + | POTASSIUM, | 4.2 | 3.5 - 5.1 | [facility] | | | PLASMA | | mmol/L | DEPARTMENT | | | (LAB) | | | OF | | | | | | PATHOLOGY | | + +---------+ + + + | CHLORIDE, | 111 (H) | 98 - 107 mmol/L | [facility] [...] + + + | ALT (SGPT) | 198 (H) | 13 - 48 U/L | [facility] [...] + + + + + | [facility] DE[facility]MENT [facility] | [address] | [place] [address] | | | PATHOLOGY | [address] | | | + + + + + | [facility] | [address] | [place] [address] | | | PATHOLOGY | [address] | | | + + + + + MAGNESIUM, PLASMA (06/30/2004 3:30 AM PST) + +-------+ + + + | Component | Value | Ref Range | Performed | Pathologist | | | | | At | Signature | + +-------+ + + + | MAGNESIUM,P | 1.9 | 1.8 - 2.5 mg/dL | [facility] | | | LASMA | | | [...] + + + + + | [facility] DE[facility] | [address] | [place] [address] | | | PATHOLOGY | [address] | | | + + + + + | [facility] DE[facility]MENT [facility] | [address] | [place] [address] | | | PATHOLOGY | [address] | | | + + + + + PHOSPHORUS, PLASMA (06/30/2004 3:30 AM PST) + +-------+ + + + | Component | Value | Ref Range | Performed | Pathologist | | | | | At | Signature | + +-------+ + + + | PHOSPHORUS, | 2.9 | 2.4 - 4.7 mg/dL | [facility] [...] | + + + + + | [facility] | [address] | [place] [address] | | | PATHOLOGY | [address] | | | + + + + + | [facility] | [address] [facility] | [place] [address] | | | PATHOLOGY | [address] | | | + + + + + CHEST 1 VIEW (06/29/2004 5:27 PM PST) + + + + + + | Component | Value | Ref Range | Performed | Pathologist | | | | | At | Signature | + + + + + + | CHEST, 1 | Radiologist 1: RAÚL | | | | | VIEW | JAH AdamsEXAM: AP | | | | | | chest. COMPARISON: | | | | | | 12/14/04 INDICATION: | | | | | | Line placement, postop | | | | | | respiratory distress | | | | | | FINDINGS: A right | | | | | | internal jugular central | | | | | | line has its | | | | | | tipinvolving the mid | | | | | | superior vena cava. | | | | | | There is no | | | | | | pneumothorax,pleural | | | | | | effusion or mediastinal | | | | | | hematoma. | | | | | | Cardiomediastinalsilho | | | | | | uette is normal. The | | | | | | lungs are clear. | | | | | | Surgical rufino | | | | | | arepresent within the | | | | | | upper abdomen. | | | | | | IMPRESSION: 1. Right | | | | | | internal jugular central | | | | | | line placed without | | | | | | acutecomplication. | | | | + + + + + + + + | Specimen | + + | | + + + +---------+ + + | Performing | Address | City/State/Zipcode | Phone Number | | Organization | | | | + +---------+ + + | [facility] DE[facility]MENT [facility] | | | | | RADIOLOGY | | | | + +---------+ + + CELL COUNT DIFF, BODY FLUID (06/29/2004 5:05 PM PST) + +--------+ + + + | Component | Value | Ref Range | Performed | Pathologist | | | | | At | Signature | + +--------+ + + + | DIFF BODY | 100 | | [facility] | | | FLUID | | | DEPARTMENT | | | | | | OF | | | | | | PATHOLOGY | | + +--------+ + + + | WBC, BODY | 107 | 0 - 999 cu mm | [facility] | | | FLUID | | | DEPARTMENT | | | | | | OF | | | | | | PATHOLOGY | | + +--------+ + + + | RBC, BODY | [id number] | cu mm | [facility] | | | FLUID | | | DEPARTMENT | | | | | | OF | | | | | | PATHOLOGY | | + +--------+ + + + | NEUTROPHIL( | 71 | % | [facility] | | | BF) | | | DEPARTMENT | | | | | | OF | | | | | | PATHOLOGY | | + +--------+ + + + | LYMPHOCYTES | 28 | % | [facility] | | | (BF) | | | DEPARTMENT | | | | | | OF | | | | | | PATHOLOGY | | + +--------+ + + + | EOSINOPHILS | 1 | % | [facility] | | | (BF) | | | DEPARTMENT | | | | | | OF | | | | | | PATHOLOGY | | + +--------+ + + + + + | Specimen | + + | | + + + + + + + | Performing | Address | City/State/Zipcode | Phone Number | | Organization | | | | + + + + + | [facility] | [address] | [place] [address] | | | PATHOLOGY | [address] | | | + + + + + | [facility] | [address] | [place] [address] | | | PATHOLOGY | [address] | | | + + + + + BODY FLUID INFO PANEL (06/29/2004 5:05 PM PST) + + + + + + | Component | Value | Ref Range | Performed | Pathologist | | | | | At | Signature | + + + + + + | TYPE OF | LIVERCYS | | [facility] | | | FLUID | | | DEPARTMENT | | | [...] + + + + + | [facility] | [address] | [place] [address] | | | PATHOLOGY | [address] | | | + + + + + | [facility] | [address] | [place] [address] | | | PATHOLOGY | [address] | | | + + + + + CBC ONLY WITH PLATELET (06/29/2004 5:00 PM PST) + +-------+ + + + | Component | Value | Ref Range | Performed | Pathologist | | | | | At | Signature | + +-------+ + + + | WHITE CELL | 9.7 | 4.4 - 11.0 K/cu | [facility] | | | COUNT | | mm | DEPARTMENT | | | | | | OF | | | | | | PATHOLOGY | | + +-------+ + + + | RED CELL | 4.76 | 3.65 - 5.10 | [facility] | | | COUNT | | M/cu mm | DEPARTMENT | | | | | | OF | | | | | | PATHOLOGY | | + +-------+ + + + | HEMOGLOBIN | 13.9 | 11.4 - 15.0 | [facility] | | | | | g/dL | DEPARTMENT | | | | | | OF | | | | | | PATHOLOGY | | + +-------+ + + + | HEMATOCRIT | 41.3 | 33.0 - 44.6 % | [facility] | | | | | | DEPARTMENT | | | | | | OF | | | | | | PATHOLOGY | | + +-------+ + + + | MCV | 86.6 | 80.0 - 96.0 fL | [facility] | | | | | | DEPARTMENT | | | | | | OF | | | | | | PATHOLOGY | | + +-------+ + + + | MCH | 29.1 | 29.0 - 32.0 pg | [facility] | | | | | | DEPARTMENT | | | | | | OF | | | | | | PATHOLOGY | | + +-------+ + + + | MCHC | 33.6 | 33.4 - 35.5 | [facility] | | | | | g/dL | DEPARTMENT | | | | | | OF | | | | | | PATHOLOGY | | + +-------+ + + + | RDW | 12.4 | 11.5 - 15.0 % | [facility] | | | | | | DEPARTMENT | | | | | | OF | | | | | | PATHOLOGY | | + +-------+ + + + | PLATELET | 174 | 150 - 400 K/cu | [facility] | | | COUNT | | mm | DEPARTMENT | | | | | | OF | | | | | | PATHOLOGY | | + +-------+ + + + | MPV | 9.4 | 7.4 - 10.4 fL | [facility] | | | | [...] | + + + + + | [facility] | [address] | [place] [address] | | | PATHOLOGY | [address] | | | + + + + + | [facility] | [address] | [place] [address] | | | PATHOLOGY | [address] | | | + + + + + PROTHROMBIN TIME (06/29/2004 5:00 PM PST) + + + + + + | Component | Value | Ref Range | Performed | Pathologist | | | | | At | Signature | + + + + + + | INR | 1.13Comment: | 0.90 - 1.20 INR | [facility] | | | | PT INR Therapeutic | | DEPARTMENT | | | | ranges for full | | OF | | | | anticoagulation: | | PATHOLOGY | | | | INR for | | | | | | Venous Thromboembolism | | | | | | | | | | | | (2.0-3.0)INR | | | | | | INR for most | | | | | | patients with mech. | | | | | | valves (2.5-3.5)INR | | | | + + + + + + + + | Specimen | + + | | + + + + + + + | Performing | Address | City/State/Zipcode | Phone Number | | Organization | | | | + + + + + | [facility] | [address] | [place] [address] | | | PATHOLOGY | [address] | | | + + + + + | [facility] | [address] | [place] [address] | | | PATHOLOGY | [address] | | | + + + + + APTT (ACT. PART. THROMBO TIME) (06/29/2004 5:00 PM PST) + + + + + + | Component | Value | Ref Range | Performed | Pathologist | | | | | At | Signature | + + + + + + | APTT | 29.6Comment: | 26.0 - 36.0 | [facility] | | | | APTT Therapeutic Range | seconds | DEPARTMENT | | | | | | OF | | | | | | PATHOLOGY | | | | (75-120)sec | | | | | | Heparin levels | | | | | | of 0.35-0.7 U/mL | | | | + + + + + + + + | Specimen | + + | | + + + + + + + | Performing | Address | City/State/Zipcode | Phone Number | | Organization | | | | + + + + + | [facility] | [address] | [place] [address] | | | PATHOLOGY | [address] | | | + + + + + | [facility] | [address] [facility] | [place] [address] | | | PATHOLOGY | [address] | | | + + + + + COMP METABOLIC SET (06/29/2004 5:00 PM PST) + +---------+ + + + | Component | Value | Ref Range | Performed | Pathologist | | | | | At | Signature | + +---------+ + + + | GLUCOSE, | 108 | 65 - 110 mg/dL | [facility] | | | PLASMA | | | DEPARTMENT | | | (LAB) | | | OF | | | | | | PATHOLOGY | | + +---------+ + + + | BUN, PLASMA | 9 | 6 - 20 mg/dL | [facility] [...] +---------+ + + + | TOTAL | 5.4 (L) | 6.1 - 7.9 g/dL | [...] +---------+ + + + | CALCIUM, | 8.3 (L) | 8.5 - 10.5 | [facility] | | | PLASMA | | mg/dL | DEPARTMENT | | | (LAB) | | | OF | | | | | | PATHOLOGY | | + +---------+ + + + | BILIRUBIN | 1.0 | 0.3 - 1.2 mg/dL | [facility] | | | TOTAL | | | DEPARTMENT | | | | | | OF | | | | | | PATHOLOGY | | + +---------+ + + + | ALK PHOS | 117 | 53 - 141 U/L | [facility] | | | | | | DEPARTMENT | | | | | | OF | | | | | | PATHOLOGY | | + +---------+ + + + | AST(SGOT) | 475 (H) | 15 - 41 U/L | [facility] | | | | | | DEPARTMENT | | | | | | OF | | | | | | PATHOLOGY | | + +---------+ + + + | SODIUM, | 140 | 136 - 145 | [facility] | [...] + + + | TOTAL CO2, | 23 | 23 - 29 mmol/L | [facility] | | | PLASMA | | | DEPARTMENT | | | (LAB) | | | OF | | | | | | PATHOLOGY | | + +---------+ + + + | ALT (SGPT) | 236 (H) | 13 - 48 U/L | [facility] [...] + + + + + | [facility] DE[facility]MENT [facility] | [address] | [place] [address] | | | PATHOLOGY | [address] | | | + + + + + | [facility] | [address] | [place] [address] | | | PATHOLOGY | [address] | | | + + + + + MAGNESIUM, PLASMA (06/29/2004 5:00 PM PST) + +-------+ + + + | Component | Value | Ref Range | Performed | Pathologist | | | | | At | Signature | + +-------+ + + + | MAGNESIUM,P | 1.8 | 1.8 - 2.5 mg/dL | [facility] [...] + + + + + | [facility] DEPARTMENT [facility] | [address] | [place] [address] | | | PATHOLOGY | [address] | | | + + + + + | [facility] DE[facility]MENT [facility] | [address] | [place] [address] | | | PATHOLOGY | [address] | | | + + + + + PHOSPHORUS, PLASMA (06/29/2004 5:00 PM PST) + +-------+ + + + | Component | Value | Ref Range | Performed | Pathologist | | | | | At | Signature | + +-------+ + + + | PHOSPHORUS, | 3.3 | 2.4 - 4.7 mg/dL | [facility] | | | PLASMA | | | [...] | + + + + + | [facility] | [address] | [place] [address] | | | PATHOLOGY | [address] | | | + + + + + | [facility] | [address] [place] [address] | [place] [address] | | | PATHOLOGY | [address] | | | + + + + + CULT, WOUND BACTI & GS (06/29/2004 2:20 PM PST) + + + + + + | Component | Value | Ref Range | Performed | Pathologist | | | | | At | Signature | + + + + + + | SOURCE BODY | Right Lobe Liver Cyst | | | | | SITE | | | | | + + + + + + | CULTURE | Wound Culture | | | | | RESULT | | | | | | | Source...............: | | | | | | Right Lobe Liver Cyst | | | | | | RLB Gram | | | | | | Stain...........: No | | | | | | PMN's | | | | | | | | | | | | No organisms seen. | | | | | | Culture: | | | | | | Preliminary Report: No | | | | | | growth after 1 day. | | | | | | Culture examined | | | | | | daily. Report will | | | | | | be updated if growth | | | | | | occurs. Final | | | | | | Report: No growth after | | | | | | 3 days. Final Report | | | | + + + + + + + + | Specimen | + + | | + + + + + + + | Performing | Address | City/State/Zipcode | Phone Number | | Organization | | | | + + + + + | [facility] | [address] | [place] [address] | | | LAB-MICRO | | | | + + + + + SURGICAL PATHOLOGY (06/29/2004) + + + + + + | Component | Value | Ref Range | Performed | Pathologist | | | | | At | Signature | + + + + + + | SURGICAL | SOURCE OF SPECIMEN:A | | [facility] | | | PATHOLOGY | Liver cyst wall-FSSOURCE | | DEPARTMENT | | | | OF SPECIMEN:B 2-4 liver | | OF | | | | cyst | | PATHOLOGY | | | | wall-permanentSOURCE OF | | | | | | SPECIMEN:C 2-3 liver | | | | | | cyst | | | | | | wall-permanentSOURCE OF | | | | | | SPECIMEN:D Segment 2 | | | | | | ypak-6-XNXVEMOT OF | | | | | | SPECIMEN:E Segment 2 | | | | | | zoyp-4-txrttlnciVMUKCG | | | | | | OF SPECIMEN:F Segment 4 | | | | | | lzyq-1-rynnvsdvkWNUWWK | | | | | | OF SPECIMEN:G Segment 4 | | | | | | ppqb-8-wczxnezgqLIAEKT | | | | | | OF SPECIMEN:H Segment 4 | | | | | | ytqs-9-phdhktdzkVXESOJ | | | | | | OF SPECIMEN:I Right lobe | | | | | | segment | | | | | | 8-5-xbacckbywQURYNX OF | | | | | | SPECIMEN:J Right lobe | | | | | | segment 7SOURCE OF | | | | | | SPECIMEN:K Cyst wall | | | | | | between 7-8 Final | | | | | | Pathologic Diagnosis:A: | | | | | | Cyst wall, liver, | | | | | | biopsy: - Benign | | | | | | peribiliary cyst. See | | | | | | comment. - Liver | | | | | | with mild | | | | | | microsteatosisB: 2-4 | | | | | | cyst wall, liver, | | | | | | biopsy: - Benign | | | | | | peribiliary cyst. See | | | | | | comment.C: 2-3 cyst | | | | | | wall, liver, biopsy: | | | | | | - Benign peribiliary | | | | | | cyst. See comment. | | | | | | - Liver with mild | | | | | | microsteatosisD: | | | | | | Segment 2 cyst, liver, | | | | | | resection: - | | | | | | Benign peribiliary cyst. | | | | | | See comment. - | | | | | | Liver with mild | | | | | | microsteatosisE: | | | | | | Segment 2 cyst-2, | | | | | | liver, resection: | | | | | | - Benign peribiliary | | | | | | cyst. See comment.- | | | | | | Liver with mild | | | | | | microsteatosisF: | | | | | | Segment 4 cyst-1, | | | | | | liver, resection: | | | | | | - Cauterized | | | | | | fibroadipose tissue, | | | | | | negative for tumorG: | | | | | | Segment 4 cyst-2, | | | | | | liver, resection: | | | | | | - Benign peribiliary | | | | | | cyst. See comment.H: | | | | | | Segment 4 cyst-6, | | | | | | liver, resection: | | | | | | - Cauterized | | | | | | fibroadipose tissue, | | | | | | negative for tumorI: | | | | | | Segment 5-8, liver, | | | | | | resection: - | | | | | | Benign peribiliary cyst. | | | | | | See comment. - | | | | | | Liver with acute and | | | | | | chronic inflammation, | | | | | | reactive | | | | | | changes,hemosiderin | | | | | | deposition, andfibrin, | | | | | | consistent with prior | | | | | | hemorrhageJ: Segment | | | | | | 7, liver, resection: | | | | | | - Benign peribiliary | | | | | | cyst. See comment. | | | | | | - Liver with a cute | | | | | | and chronic inflammation | | | | | | and reactive changesK: | | | | | | Cyst wall between 7-8, | | | | | | liver, resection: | | | | | | - Benign peribiliary | | | | | | cyst. See comment. | | | | | | - Liver with acute | | | | | | and chronic inflammation | | | | | | and reactive changes | | | | | | Comment: The cysts | | | | | | consist of single and | | | | | | multiloculated spaces | | | | | | with a lowcuboidal non | | | | | | atypical epithelial | | | | | | lining (Specimens A, B, | | | | | | C, D, E, G, I, J,K). | | | | | | Case reviewed | | | | | | by:Leydi Roque M.D. | | | | | | /Tc Liao | | | | | | Trever PhJoseDJose, M.D. | | | | | | /PathologistT:07/04/04/ | | | | | | I have reviewed all | | | | | | diagnostic slides and | | | | | | have edited the gross | | | | | | and/ormicroscopic | | | | | | portion of this report | | | | | | as part of my pathologic | | | | | | assessment andfinal | | | | | | diagnosis. Frozen | | | | | | Section Diagnosis:Liver, | | | | | | cyst wall (specimen A): | | | | | | - Benign | | | | | | cystSegment 2, cyst 1 | | | | | | (specimen D): - | | | | | | Benign biliary cyst | | | | | | Confirmed by: | | | | | | Rajat Schuler | | | | | | Declan Flannery, Ph.D. / | | | | | | Pathologist Clinical | | | | | | History:The patient is a | | | | | | 58-year-old female with | | | | | | liver cyst. Gross | | | | | | Description:Eleven | | | | | | specimens are received | | | | | | fresh. A: Liver, cyst | | | | | | wall, FS: Received | | | | | | fresh is a 1.2 x 1.1 x | | | | | | 0.4-cm irregularfragment | | | | | | of evangelista-pink tissue. | | | | | | The frozen section | | | | | | residue consists of | | | | | | theentire specimen. B: | | | | | | 2-4 liver cyst wall, | | | | | | permanent (alcohol): | | | | | | Received is a 5.8 x | | | | | | 3.5 x0.1-cm irregular, | | | | | | membranous fragment of | | | | | | glistening, evangelista-pink | | | | | | tissue. Theglistening | | | | | | surface is smooth, with | | | | | | occasional | | | | | | trabeculations. C: 2-3 | | | | | | liver cyst wall | | | | | | permanent: Received is | | | | | | a 1.2 x 0.5 x | | | | | | 0.3-cmirregular fragment | | | | | | of soft, glistening, | | | | | | evangelista-pink tissue. D: | | | | | | Segment 2, cyst 1, FS: | | | | | | Received is a 3.2 x | | | | | | 2.5 x 0.3-cm | | | | | | sac-likefragment of | | | | | | soft, glistening, | | | | | | evangelista-pink tissue. The | | | | | | lining of the | | | | | | sac-likefragment is | | | | | | bfhxda-dj-vlbwwydjdlru, | | | | | | glistening evangelista-pink, | | | | | | without | | | | | | papillaryexcrescences. | | | | | | A portion of the | | | | | | specimen is used for | | | | | | frozen sectiondiagnosis | | | | | | and is resubmitted in | | | | | | toto. E: Segment 2, | | | | | | cyst 2, permanent: | | | | | | Received is a 2.1 x | | | | | | 1.0 x 0.3-cmirregular | | | | | | fragment of soft, | | | | | | pink-purple tissue. F: | | | | | | Segment 4, cyst 1, | | | | | | permanent: Received is | | | | | | a 0.6 x 0.6 x | | | | | | 0.2-cmirregular fragment | | | | | | of evangelista-brown to purple | | | | | | tissue. G: Segment 4, | | | | | | cyst 2, permanent: | | | | | | Received is a 1.5 x | | | | | | 0.7 x 0.2-cmirregular | | | | | | fragment of membranous, | | | | | | translucent, evangelista-pink to | | | | | | brown tissue. H: | | | | | | Segment 4, cyst 6, | | | | | | permanent: Received is | | | | | | a 0.6 x 0.6 x | | | | | | 0.2-cmirregular fragment | | | | | | of rubbery, brown to | | | | | | evangelista-pink tissue. I: | | | | | | Right lobe segment | | | | | | 5-8, permanent: | | | | | | Received is a 15.5 x | | | | | | 8.0 x 0.1-cmirregular | | | | | | fragment of membranous, | | | | | | translucent, evangelista-pink to | | | | | | purple tissue.One | | | | | | aspect of the membranous | | | | | | tissue has a smooth, | | | | | | glistening surface. | | | | | | Theother aspect has a | | | | | | trabeculated surface. J: | | | | | | Right lobe segment 7: | | | | | | Received is a 3.5 x | | | | | | 2.8 x 0.1-cm | | | | | | irregularfragment of | | | | | | membranous, translucent, | | | | | | evangelista-pink tissue.K: | | | | | | Cyst wall between 7 | | | | | | and 8: Received are | | | | | | two irregular fragments | | | | | | ofmembranous, | | | | | | glistening, pink to | | | | | | purple tissue that | | | | | | measure 5.0 x 4.3 x | | | | | | 0.2cm in aggregate. | | | | | | Cassette Index:A: | | | | | | Liver, cyst wall, | | | | | | FS:A1, frozen section | | | | | | residue, ASB: 2-4 | | | | | | liver cyst wall, | | | | | | permanent (alcohol):B1, | | | | | | RSC: 2-3 liver cyst | | | | | | wall permanent:C1, ASD: | | | | | | Segment 2, cyst 1, | | | | | | FS:D1, frozen section | | | | | | residue, ASD2-3, | | | | | | remainder of tissue, | | | | | | RSE: Segment 2, cyst | | | | | | 2, permanent:E1, ASF: | | | | | | Segment 4, cyst 1, | | | | | | permanent:F1, ASG: | | | | | | Segment 4, cyst 2, | | | | | | permanent:G1, ANDREIA: | | | | | | Segment 4, cyst 6, | | | | | | permanent:H1, ASI: | | | | | | Right lobe segment | | | | | | 5-8, permanent:I1-4, | | | | | | RSJ: Right lobe | | | | | | segment 7:J1, RSK: | | | | | | Cyst wall between 7 | | | | | | and 8:K1-2, | | | | | | RSCS:WR:labRendering | | | | | | Diagnostician: Antony | | | | | | Yanni Perera | | | | | | Ph.D.,M.D.PathologistEle | | | | | | ctronically Signed | | | | | | 07/04/2004Comment: | | | | | | SOURCE OF SPECIMEN: | | | | | | Liver cyst wall-FS-2-4 | | | | | | liver cyst | | | | | | jumy-ofzncqqnw-7-3 liver | | | | | | cyst | | | | | | daqb-knqmakzll-Cygsjmn 2 | | | | | | oyap-9-II-Segment 2 | | | | | | xqng-6-lyipfmcyy-Segment | | | | | | 4 | | | | | | whbo-3-fxnzorptb-Segment | | | | | | 4 | | | | | | thcd-7-veewmfiwt-Segment | | | | | | 4 | | | | | | pyua-1-suxieqigd-Right | | | | | | lobe segment | | | | | | 7-2-efrgptepd-Right lobe | | | | | | segm | | | | + + + + + + + + | Specimen | + + | | + + + + + + + | Performing | Address | City/State/Zipcode | Phone Number | | Organization | | | | + + + + + | [facility] | [address] | [place] [address] | | | PATHOLOGY | [address] | | | + + + + + | [facility] | [address] | [place] [address] | | | PATHOLOGY | [address] | | | + + + + + CHEST 2 VIEW (06/28/2004 2:08 PM PST) + + + + + + | Component | Value | Ref Range | Performed | Pathologist | | | | | At | Signature | + + + + + + | CHEST, 2 | Radiologist 1: DOBOS, | | | | | VIEWS [place] | SHAYY, MDPA and lateral | | | | | STEREO | chest. No comparisons. | | | | | | Heart, hilar, and | | | | | | mediastinal contours are | | | | | | normal. Lungs | | | | | | areclear. Osseous | | | | | | structures are | | | | | | unremarkable. | | | | | | CONCLUSION: 1. No | | | | | | active disease in the | | | | | | chest. | | | | | | | [...] | | | + +---------+ + + BLOOD BANK PRODUCT (06/28/2004 1:30 PM PST) + + + + + + | Component | Value | Ref Range | Performed | Pathologist | | | | | At | Signature | + + + + + + | PRODUCT | PACKED CELLS | | [facility] | | | DESCRIPTION | | | DEPARTMENT | | | | | | OF | | | | | | PATHOLOGY | | + + + + + + | PRODUCT | [id number] | | [facility] | | | UNIT # | | | DEPARTMENT | | | | | | OF | | | | | | PATHOLOGY | | + + + + + + | UNIT ABO | B | | [facility] | | | | | | DEPARTMENT | | | | | | OF | | | | | | PATHOLOGY | | + + + + + + | UNIT RH | POS | | [facility] | | | | | | DEPARTMENT | | | | | | OF | | | | | | PATHOLOGY | | + + + + + + | STATUS OF | Released | | [facility] | | | UNIT | | | DEPARTMENT | | | [...] | + + + + + | [facility] | [facility] | [place] [address] | | | PATHOLOGY | [address] | | | + + + + + | [facility] | [address] [place] [address] | [place] [address] | | | PATHOLOGY | [address] | | | + + + + + BLOOD BANK PRODUCT (06/28/2004 1:30 PM PST) + + + + + + | Component | Value | Ref Range | Performed | Pathologist | | | | | At | Signature | + + + + + + | PRODUCT | PACKED CELLS | | [facility] | | | DESCRIPTION | | | DEPARTMENT | | | | | | OF | | | | | | PATHOLOGY | | + + + + + + | PRODUCT | [id number] | | [facility] | | | UNIT # | | | DEPARTMENT | | | | | | OF | | | | | | PATHOLOGY | | + + + + + + | UNIT ABO | B | | [facility] | | | | | | DEPARTMENT | | | | | | OF | | | | | | PATHOLOGY | | + + + + + + | UNIT RH | POS | | [facility] | | | | | | DEPARTMENT | | | | | | OF | | | | | | PATHOLOGY | | + + + + + + | STATUS OF | Released | | [facility] | | | UNIT | | | DEPARTMENT | | | [...] + | [facility] DEPARTMENT OF | [address] | [place] [address] | | | PATHOLOGY | [address] | | | + + + + + | [facility] DEPARTMENT | [address] | [place] [address] | | | PATHOLOGY | [address] | | | + + + + + ANTIBODY SCREEN & CROSSMATCH (06/28/2004 1:30 PM PST) + +-------+ + + + | Component | Value | Ref Range | Performed | Pathologist | | | | | At | Signature | + +-------+ + + + | ABO GROUP | B | | [facility] | | | | | | DEPARTMENT | | | | | | OF | | | | | | PATHOLOGY | | + +-------+ + + + | RH TYPE | POS | | [facility] | | | | | | DEPARTMENT | | | | | | OF | | | | | | PATHOLOGY | | + +-------+ + + + | ANTIBODY | NEG | | [facility] | | | SCREEN | | | DEPARTMENT | | | | | | OF | | | | | | PATHOLOGY | | + +-------+ + + + + + | Specimen | + + | | + + + + + | Narrative | Performed At | + + + | SPEC OUTDATES 07/01/04 @ 0700 | [facility] | | | DEPARTMENT OF | | | PATHOLOGY | + + + + + + + + | Performing | Address | City/State/Zipcode | Phone Number | | Organization | | | | + + + + + | [facility] | [address] | [place] [address] | | | PATHOLOGY | [address] | | | + + + + + | [facility] | [address] | [place] [address] | | | PATHOLOGY | [address] | | | + + + + + documented in this encounter Visit Diagnoses Not on filedocumented in this encounter"
--- OUTSIDE RECORDS SUMMARY | ~2020-05-04 | XMS | Encounter Summary ---
Demographics + + + | Address | [address] | | | [place] [address] | + + + | Home Phone [...] + | Gene Gee | ECON | [address] | | | | | [place], | | | | | [place] [address] | | + + + + + Care Team Providers + +------+ + | Care Assurance Auditor Name | Role | Phone | + +------+ + | Antony Ribera MD | PCP | | + +------+ + Encounter Details +--------+---------+ + + + | Date | Type | Department | Care Team | Description | +--------+---------+ + + + | 07/27/ | Office | Cardiology | Gary Fuentes MD | Atrial tachycardia | | 2015 | Visit | Arrhythmia at [facility] | [address] | 427.89 (Primary Dx); | | | | [address] | [address], | Palpitations | | | | [facility] | [place] [address] | | | | | and Healing, | [phone] | | | | | Building | | | | | | Floor [place], [place] | | | | | | [address] | | | | | | [phone] | | | +--------+---------+ + + + [...] + + + | Blood Pressure | 146/73 | 07/27/2014 11:18 AM | | | | | PST | | + + + + + | Pulse | 65 | 07/27/2014 11:18 AM | | | | | PST | | + + + + + | Temperature | 36.6 C (97.8 F) | 07/27/2014 11:18 AM | | | | | PST | | + + + + + | Respiratory Rate | - | - | | + + + + + | Oxygen Saturation | 99% | 07/27/2014 11:18 AM | | | | | PST | | + + + + + | Inhaled Oxygen | - | - | | | Concentration | | | | + + + + + | Weight | 65.9 kg (145 lb 4.8 | 07/27/2014 11:18 AM | | | | oz) | PST | | + + + + + | Height | 167.6 cm (5' 6") | 07/27/2014 11:18 AM | | | | | PST | | + + + + + | Body Mass Index | 23.45 | 07/27/2014 11:18 AM | | | | | PST | | + + + + + documented in this encounter Patient Instructions Patient Instructions Gary Fuentes MD - 07/27/2014 12:06 PM PSTYou are having frequent atrial arrhythmias; You can take an extra 25 mg Atenolol as needed. If your symptoms don't get be tter we can do a repeat EP study and possible ablation. I will see you back in 6 months documented in this encounter Progress Notes Gary Fuentes MD - 07/27/2014 10:19 AM PST EP/Cardiology Clinic Office Visit on 07/27/2014 PCP is Antony Ribera MD ID and Chief Complaint: Adriana Flynn is a 68y.o. female with a history of atrial tachycardia (EP study without ablation 2005), right breast cancer ([id number] s/p mastectomy & XRT), GERD, Sjogren's Syndrome, Multiple SBO's, hx of PE 2008 who comes in today for follow up of her atrial arrhythmias. She has had a very stressful year related to family issues. She has had more frequent atrial arrhythmias which were documented by an Event recorder. She had a michael re migraine in May with right arm numbness without other Neurologic symptoms. Her BP wa s high and Dr Ribera increased her Beta Rimma. She feels like she is having symptoms all of the time. ROS: She has otherwise been well for the past year without other significant medical issue s Current Medications: albuterol (PROAIR HFA) 90 mcg/actuation inhalation HFA aerosol inhaler, Inhale 1-2 puffs ev lupe four hours as needed. Indications: ACUTE ASTHMA ATTACK atenolol 50 mg Oral Tablet, Take 25 mg by mouth two times daily. budesonide (PULMICORT FLEXHALER) 180 mcg/actuation inhalation aerosol powdr breath activate d, Inhale 3 puffs two times daily. calcium citrate-vitamin D (CITRACAL + D) 315-200 mg-unit Oral Tablet, 2 tabs in evening an d liquid calcium citrate in AM DOFETILIDE 500 mcg oral capsule, Take 1 capsule by mouth two times daily. ezetimibe (ZETIA) 10 mg Oral Tablet, Take 10 mg by mouth once daily. fluticasone (FLONASE) 50 mcg/actuation nasal spray,suspension, Instill 1 spray into each no stril two times daily. fluticasone 220 mcg/actuation inhalation aerosol (aero), Inhale 2 puffs two times daily. Mo rning and evening. Rinse mouth after use. Indications: BRONCHIAL ASTHMA Glucosamine 1,000 mg Oral Tablet, one daily LORAZEPAM 1 mg Oral tablet, 0.5 Tabs Q HS PRN. Methylcellulose, Laxative, (CITRUCEL) Oral Powder, Take by mouth. MULTIVITAMIN OR, one daily potassium chloride SR 20 mEq Oral tablet,ER particles/crystals, Take 1 Tab by mouth once da yin. rabeprazole (ACIPHEX) 20 mg Oral Tablet, Delayed Release (E.C.), Take 20 mg by mouth every twelve hours. RESTASIS 0.05 % Ophthalmic Dropperette, 1 drop two times daily. Vitamin A-Vitamin C-Vit E-Min (ANTIOXIDANT FORMULA) Oral Capsule, take 1 capsule by oral ro [place] once daily with food VITAMIN D ORAL, 2000 IU daily Filed Vitals: 07/27/2014 11:18 AM Height: 1.676 m (5' 6") Weight: 65.908 kg (145 lb 4.8 oz) BP: 146/73 Pulse: 65 Temp: 36.6 C (97.8 F) TempSrc: Oral SpO2: 99% PainSc: 0 - Zero BMI: 23.46 kg/(m^2) General: AO X3 in NAD Neck: JVP 5 cm Chest: Clear CV: RRR no murmurs Ext: Warm ; no peripheral edema ECG: NSR Event Recorder: Brief runs of PAC's (3-4 beat runs) and non-conducted PAC's giving effectiv e HR of 50 Impression: 68 y.o. female with a history of atrial tachycardia and two prior EP studies elisabet williamson has had frequent palpitations and documented brief runs of atrial ectopy. Some of her sym ptoms may be stress related. For now, she can use prn extra Atenolol. If she continues to bhakta ve a high arrhythmia burden, we will plan a repeat EP study and p[ossible ablation > Continue atenolol 50 mg BID, dofetilide 500 mcg BID Can take Atenolol 25 mg prn palpitations > follow up in 6 months I spent 35 minutes with the patient. Greater than 50% of the time was spent counselling th e patient regarding the above. documented in this encount er Plan of Treatment Not on filedocumented as of this encounter Visit Diagnoses + + | Diagnosis | + + | Atrial tachycardia 427.89 - Primary Other specified cardiac dysrhythmias | + + | Palpitations | + + documented in this encounter
--- OUTSIDE RECORDS SUMMARY | ~2020-05-04 | XMS | Encounter Summary ---
Demographics + + + | Address | [address] | | | [place] [address] | + + + | Home Phone [...] + | Gene eGe | ECON | [address] | | | | | [place], | | | | | [place] [address] | | + + + + + Care Team Providers + +------+ + | Care Bicycle Subassembler Name | Role | Phone | + [...] | [facility] | [address] [place], | | | | | [address] | [place] [address] | | | | | [address] | [phone] | | | | | Physician's | | | | | | [place], 1st floor | | | | | | [place], [place] | | | | | | [address] | | | | | | [phone] | | | +--------+ + + + [...]
--- OUTSIDE RECORDS SUMMARY | ~2020-05-04 | XMS | Encounter Summary ---
Demographics + + + | Address | [address] | | | [place] [address] | + + + | Home Phone | | + + + | Preferred Language | Unknown | + + + | Marital Status | | + + + | Restorationism Affiliation | CHR | + + + [...] + | Gene Gee | ECON | [address] | | | | | [place], | | | | | [place] [address] | | + + + + + Care Team Providers + +------+ + | Care Bag Valver Name | Role | Phone | + [...] | | cancer (HCC) | [address] | | | | | | Carcinoma | [facility] | | | | | | in situ of | for Health | | | | | | breast | and Healing, | | | | | | Acquired | Building [address] | | | | | | absence of | [place], | | | | | | breast and | [place] | | | | | | nipple | [address] | | | | | | Procedures | Phone: | | | | | | CONSULT TO | [phone] | | | | | | SURGERY - | Fax: | | | | | | PLASTICS | [phone] | | +--------+--------+ + + + + Reason for Visit + +--------+ + | Reason | Onset | Comments | | | Date | | + +--------+ + | Treatment Planning | 03/04/ | | | | 2011 | | + +--------+ + Encounter Details +--------+ + + + + | Date | Type | Department | Care Team | Description | +--------+ + + + + | 03/04/ | Telephone | Surgical Oncology | [facility], | Treatment Planning | | 2011 | | at [facility] [address] | [place] [address] | | | | | [facility] | [place], [place] | | | | | Health and [facility], | [address] | | | | | [facility] | [phone] | | | | | [place], [place] | | | | | | [address] | | | | | | [phone] | | | +--------+ + + + [...] Telephone Encounter - Claribel Garza RN - 03/04/2012 10:37 AM PDTPatient called and is no w interested in breast reconstruction with implant and contralateral breast reduction for sy mmetry. Per Dr. Heart- referral to Dr. Kelsi Lopez in plastics. 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
--- OUTSIDE RECORDS SUMMARY | ~2020-05-04 | XMS | Encounter Summary ---
Demographics + + + | Address | [address] | | | [place] [address] | + + + | Home Phone [...] + | Gene Gee | ECON | [address] | | | | | [place], | | | | | [place] [address] | | + + + + + Care Team Providers + +------+ + | Care Cracker Dough Mixer Name | Role | Phone | + +------+ + | Alec Hill MD | PCP | | + +------+ + Encounter Details +--------+ + + + + | Date | Type | Department | Care Team | Description | +--------+ + + + + | 07/05/ | Hospital | Registration [address] | Bob Reyna MD | | | 2005 | Activity | [address] [facility] | [address] | | | | | [address]iss Mailcode: [id number] | [place], [place] | | | | | [place], [place] | [address] | | | | | [address] | [phone] | | | | | [phone] | | | +--------+ + + + [...] + | SURGICAL PATHOLOGY | Routin | 07/05/2006 | | Results for this | | | e | | | procedure are in the | | | | | | results section. | + +--------+ + + + documented in this encounter Results SURGICAL PATHOLOGY (07/05/2006) + + + + + + | Component | Value | Ref Range | Performed | Pathologist | | | | | At | Signature | + + + + + + | SURGICAL | SOURCE OF SPECIMEN:A | | [facility] | | | PATHOLOGY | Random colon biopsies | | DEPARTMENT | | | | Final Pathologic | | OF | | | | Diagnosis:Colon, random | | PATHOLOGY | | | | biopsies: - | | | | | | Colonic mucosa with no | | | | | | diagnostic abnormality | | | | | | Case reviewed by:Joo | | | | | | Declan Smith, Ph.D./ | | | | | | Surgical Pathology | | | | | | Chantal Albright, | | | | | | MEli, | | | | | | Ph.D./PathologistT:07/06 | | | | | | :[facility] I have reviewed | | | | | | all diagnostic slides | | | | | | and have edited the | | | | | | gross and/ormicroscopic | | | | | | portion of this report | | | | | | as part of my pathologic | | | | | | assessment andfinal | | | | | | diagnosis. Clinical | | | | | | History:The patient is a | | | | | | 60-year-old female with | | | | | | history of | | | | | | diverticulitis; ruleout | | | | | | microscopic colitis. | | | | | | Gross Description:One | | | | | | specimen is received in | | | | | | formalin in a container | | | | | | with the | | | | | | patient'sinitials CB | | | | | | labeled "random colon | | | | | | biopsies." Received | | | | | | are four fragmentsof | | | | | | evangelista, soft tissue, | | | | | | measuring 0.3 x 0.3 x | | | | | | 0.3 cm in aggregate. | | | | | | The entirespecimen is | | | | | | submitted. Cassette | | | | | | Index:[id number] | | | | | | ng Diagnostician: | | | | | | Julia Albright Ph.D., | | | | | | | | | | | | MEliPathologistElectroni | | | | | | will Signed 07/10/2006 | | | | + + + + + + + + | Specimen | + + | | + + + + + + + | Performing | Address | City/State/Zipcode | Phone Number | | Organization | | | | + + + + + | [facility] DEPARTMENT OF | [facility] | [place] [address] | | | PATHOLOGY | [address] | | | + + + + + | [place] DEPARTMENT OF | [facility] | [place] [address] | | | PATHOLOGY | [address] | | | + + + + + documented in this encounter Visit Diagnoses Not on filedocumented in this encounter
--- OUTSIDE RECORDS SUMMARY | ~2020-05-04 | XMS | Encounter Summary ---
Demographics + + + | Address | [address] | | | [place] [address] | + + + | Home Phone [...] + | Gene Gee | ECON | [address] | | | | | [place], | | | | | [place] [address] | | + + + + + Care Team Providers + +------+ + | Care Coremaker Machine Name | Role | Phone | + +------+ + | Alec Hill MD | PCP | | + +------+ + Encounter Details +--------+--------+ + + + | Date | Type | Department | Care Team | Description | +--------+--------+ + + + | 11/27/ | Travel | | | | | 2019 | | | | | +--------+--------+ + [...]
--- OUTSIDE RECORDS SUMMARY | ~2020-05-04 | XMS | Encounter Summary ---
Demographics + + + | Address | [address] | | | [place] [address] | + + + | Home Phone [...] + + + | Author | [facility] | + + + | Organization | [facility] | + + + | Address | Unknown | + + + | Phone | Unavailable | + + + Support + + + + + | Name | Relationship | Address | Phone | + + + + + | Gene Gee | ECON | [address] | | | | | [place], | | | | | [place] [address] | | + + + + + Care Team Providers + +------+ + | Care Dentist Name | Role | Phone | + +------+ + | Antony Ribera MD | PCP | | + +------+ + Encounter Details +--------+ + + + + | Date | Type | Department | Care Team | Description | +--------+ + + + + | 12/11/ | Telephone | Cardiology General | Monique Middleton, | | | 2007 | | at [facility] [address] | MICHAEL | | | | | [place] for | | | | | | Health and Healing, | | | | | | Building | | | | | | Floor [place], [place] | | | | | | [address] | | | | | | [phone] | | | +--------+ + + + [...] this encounter Miscellaneous Notes Telephone Encounter - Kane Schwarz, Monique - 12/12/2007 4:32 PM PDTWondered about taking torie iletine twice daily--said she could try this. Discussed with Dr. Fuentes--would like to try do fetilide with her if she is agreeable to a hospitalization. documented in this encounter Plan of Treatment Not on filedocumented as of this encounter Visit Diagnoses Not on filedocumented in this encounter"
--- OUTSIDE RECORDS SUMMARY | ~2020-05-04 | XMS | Encounter Summary ---
Demographics + + + | Address | [address] | | | [place] [address] | + + + | Home Phone | | + + + | Preferred Language | Unknown | + + + | Marital Status | | + + + | Tenriism Affiliation | CHR | + + + [...] + | Gene Gee | ECON | [address] | | | | | [place], | | | | | [place] [address] | | + + + + + Care Team Providers + +------+ + | Care Chef Head Name | Role | Phone | + +------+ + | Antony Ribera MD | PCP | | + +------+ + Encounter Details +--------+ + + + + | Date | Type | Department | Care Team | Description | +--------+ + + + + | 11/15/ | MyChart | Cardiology | Elijah Whalen, | Arnoldoo event monitor | | 2017 | Encounter | Arrhythmia at [facility] | [address] | | | | | [address] | [address] | | | | | [facility] | [place], [place] | | | | | and Healing, | [address] | | | | | [place] [address] | [phone] | | | | | Floor [place], [place] | | | | | | [address] | | | | | | [phone] | | | +--------+ + + + [...]
--- OUTSIDE RECORDS SUMMARY | ~2020-05-04 | XMS | Encounter Summary ---
Demographics + + + | Address | [address] | | | [place] [address] | + + + | Home Phone [...] + | Gene Gee | ECON | [address] | | | | | [place], | | | | | [place] [address] | | + + + + + Care Team Providers + +------+ + | Care Manager Performance Name | Role | Phone | + +------+ + | Antony Ribera MD | PCP | | + +------+ + Reason for Visit + +--------+ + | Reason | Onset | Comments | | | Date | | + +--------+ + | Appointment Question | 10/23/ | | | | 2012 | | + +--------+ + Encounter Details +--------+ + + + + | Date | Type | Department | Care Team | Description | +--------+ + + + + | 10/23/ | Telephone | Plastic and | Errol Gold | Appointment Question | | 2012 | | Reconstructive | MD Manda [address] | | | | | Surgery at [facility] [address] | | | | | [facility] | [address] [place], [place] | | | | | for Health and | [id number] | | | | | [facility], [facility], | | | | | | 5th Floor | | | | | | [place], [place] | | | | | | [address] | | | | | | [phone] | | | +--------+ + + + [...] Notes Telephone Encounter - Jenny Meyer - 10/23/2012 9:52 AM PDTPlease see mychart message from today. elephone Madeline Herbert - 10/23/2012 9:37 AM PDTCarol would like to verify that the ultrasou nd machine will be available for appointment w/ Santiago tomorrow. documented in this encounter Plan of Treatment Not on filedocumented as of this encounter Visit Diagnoses Not on filedocumented in this encounter"
--- OUTSIDE RECORDS SUMMARY | ~2020-05-04 | XMS | Encounter Summary ---
Demographics + + + | Address | [address] | | | [place] [address] | + + + | Home Phone [...] + | Gene Gee | ECON | [address] | | | | | [place], | | | | | [place] [address] | | + + + + + Care Team Providers + +------+ + | Care Watch Adjuster Name | Role | Phone | + [...] | Closed | | | Diagnoses | Pommier, | Ambulatory | | | | | Contracture | MD Luís | Surgery [address] | | | | | of muscle | [address] | S[place]IA Harden | | | | | Procedures | Ave | Antohny Lipscomb | | | | | CONSULT TO | [place] | [place] | | | | | [place] | [address] | Luciano | | | | | | Phone: | [phone] | | | | | | [phone] | [place], [place] | | | | | | Fax: | [phone] | | | | | | [phone] | | +--------+--------+ + + + + Reason for Visit + + + | Reason | Comments | + + + | Follow-up visit | | + + + Encounter Details +--------+---------+ + + + | Date | Type | Department | Care Team | Description | +--------+---------+ + + + | 05/23/ | Office | [facility] | Luís Heatr, | Contracture of | | 2006 | Visit | at [address] [address] | MD [address] | Muscle (Primary Dx) | | | | [place] | [facility] [place] | | | | | [id number] | [address] | | | | | [facility], | [phone] | | | | | [place] [address] | | | | | | [phone] | | | +--------+---------+ + + + [...] + + + | Blood Pressure | 133/66 | 05/23/2007 2:49 PM | | | | | PST | | + + + + + | Pulse | 78 | 05/23/2007 2:49 PM | | | | | PST | | + + + + + | Temperature | 36.4 C (97.6 F) | 05/23/2007 2:49 PM | | | | | PST [...] Weight | 65.3 kg (144 lb) | 05/23/2007 2:49 PM | | | | | PST | | + + + + + | Height | - | - | | + + + + + | Body Mass Index | 23.6 | 05/02/2007 2:06 PM | | | | | PDT | | + + + + + documented in this encounter Patient Instructions Patient Instructions Claribel Garza - 05/23/2007 4:05 PM PSTRegistration Locations (pleas e check in at one of the following registration desks prior to surgery) For surgeries scheduled to take place on the [place] at the [facility]: Surgeries scheduled in the [facility] ([address] [place] [address]): registration is located on the 4th floor of [facility] (Day Surgery). Surgeries scheduled in the [facility]: registration is located on the 9th floor. Surgeries scheduled in [facility]: registration is located on the 6th floor. Surgeries scheduled in the [facility]: registration is located i n the [facility] on the first floor. For surgeries scheduled to take place at the [facility]: registration is l ocated on the 4th floor (Surgery Center). Registration Process for all Admissions/Surgeries Please bring your insurance card(s) with you and be prepared to pay any co-payment, co-insu anthony or deposit that may be required. Once you arrive at the registration desk, you will be interviewed by a Patient Access Servi ce Specialist (CANDY). Demographics will be verified (example: name, date of , Social Se curity Number, address, insurance). You will be asked to sign some paperwork: Terms and Conditions of Service, Notice of Privac y Practices Acknowledgement and Genetic Testing Opt Out. You will be given some paperwork: copies of any forms signed by you, Patient Rights, Respon sibilities and Safety, Understanding Advance Directives, and Smoking Cessation Brochure. OUTPATIENT SURGERY INFORMATION at [facility] Prior to surgery, you will need to do one of the followin. Phone PAT Appointment (Pre-Admission Testing Clinic) is on at . Call [phone] or toll free ext [phone] at appointed time. 2. Call Surgical Oncology Office ([phone]) To Make Post-Op Appointment. ANCILLARY SERVICES 1. Blood Work (Lab is located on the 3rd floor of [facility].) 2. Chest Xray (Radiology is located on the 3rd floor of [facility].) No appointment required. 3. EKG (EKG is located on the 9th floor of [facility].) No appointment r equired. * Stop blood thinners (Aspirin, Warfarin, etc.) as directed . * Nothing to eat or drink (including water) after midnight on 06/11/08. (the night prior to your surgery). * REPORT TO THE 4TH FLOOR OF THE [facility], ROOM 4519 (AMBULATORY DAY SURGERY) ON 06/12/07. * For arrival time, please call 06/11/07 between 1:00 p.m. & 3:00 p.m. * Please shower, shampoo and shave before being admitted to the hospital. * Do not wear any make up, nail austrian or jewelry for the surgery. * Carefully read all literature given to you regarding your surgery. * REMEMBER: You may NOT drive yourself home after surgery! Please make arrangements to hav e someone take you home after you are released from the Day Surgery Facility. * Free parking is available in the [facility]. DIRECTIONS TO ADMITTING FOR DAY SURGERY 1. [facility] and [facility]. 2. Turn right and pass the lab, follow the skybridge that crosses over the street. 3. You will arrive in front of B elevator, turn right and proceed down the hallway and up t he stairs. 4. Day Stay is on the right side at the top of the stairs, Room #6579. Contact Information If you have any questions, please call us during business hours: [facility] Toll Free [phone] Breast Clinic After hours and on weekends, please call the paging nylon operator at and ask for the Gold Surgery MD personal injury specialist. P ST documented in this encounter Progress Notes Luís Heart - 05/23/2007 5:12 PM PSTI performed a history and physical examination of the patient and discussed her management with the resident. I reviewed the resident s not e and agree with the documented findings and plan of care. 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 It needs to be released soon or it will be permanent. She just had chemoth erapy, so we'll need to time it about 3 weeks from now and then wait an additional week for healing before her next chemotherapy treatment. I scheduled her for Day Surgery on 7. Dr. Velazquez is aware and agrees. PARQ held and consent signed. LUÍS HEART MD air bag stripper Division of Surgical Oncology MailCode [id number] [place], [place] [address] amu Everardoantwon - 007 4:14 PM PST IDENTIFICATION: Adriana Flynn is a 61-year-old female who underwent right mastectomy with axi llary dissection came in for right axillary scar check. HIP: Adriana underwent right mastectomy with SLNB in this March ans subsequently underwen t completion right axillary dissection in this April. She has been doing well since surger y. She started chemotherapy today. She was evaluated by physical therapist today who noticed scar in the right axillary which limits full range of shoulder movement. She was recommende d coming to see us for the evaluation of the scar in the right axilla. 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 R3. Prochlorperazine Maleate (COMPAZINE) 10 mg Oral Tablet Take 1 tablet PO Q6-8hrs PRN gilberto sea D30. R2. Prochlorperazine (COMPAZINE) 25 mg Rectal Suppository Take 1 HI Q8-12hrs PRN nausea D2. R0. Lorazepam 1 mg Oral Tablet Take 1 PO Q6-8hrs PRN nausea D20. R2. Ondansetron HCl (ZOFRAN) 8 mg Oral Tablet Take 1 PO Q8-12 hrs for nausea D6. R3. Atenolol 25 mg Oral Tablet take 1 tablet (25 mg) by oral route once daily Ezetimibe (ZETIA) 10 mg Oral Tablet take 1 tablet (10 mg) by oral route once daily Docusate Sodium (STOOL SOFTENER) 100 mg Oral Capsule take 1 capsule (100 mg) by oral ro coushatta once daily at bedtime as needed Vitamin A-Vitamin C-Vit E-Min (ANTIOXIDANT FORMULA) Oral Capsule take 1 capsule by oral route once daily with food Glucosamine Sulfate 1,000 mg Oral Capsule None Entered VITAMINS-LIPOTROPICS OR None Entered Amino Acids (AMINO ACID) Oral Capsule 600 mg DHEA OR 5 mg daily PROTONIX 40 MG TAB take 1 tablet (40mg) by oral route once daily PEPCID 20 MG TAB take 1 tablet (20mg) by oral route 2 times per day SPIRIVA WITH HANDIHALER 18 MCG & INHALATION CAPS inhale the contents of one capsule (18 mcg) by inhalation route once daily ETHMOZINE 200 MG TAB take 1 tablet (200mg) by oral route every 8 hours MULTIVITAMIN CAP None Entered LEVSIN 0.125 MG TAB take 1 tablet (0.125mg) by oral route every 4 hours as needed 60 6 PULMICORT 0.25 MG/2 ML INHL NEBU Allergies Allergen Reactions Sulfa (sulfonamides) Swelling-Facial Ciprofloxacin HIVES/RASH Triamterene-hydrochlorothiazid BREAST LUMPS Celebrex (celecoxib) Diarrhea and Cough Albuterol Tachycardia Flecainide Acetate Propafenone ROS: all systems were reviewed, unremarkable other than mentioned above OBJECTIVE: BP 133/66 | Pulse 78 | Temp (Src) 97.6 F (36.4 C) (Oral) | Wt 65.318 kg (144 lbs) Gen: Well nourished, well developed, in NAD HEENT: No scleral icterus. Conjunctiva noninjected. Pupils equal, round, reactive to light and accomadation. Oropharynx is clear with moist mucous membrane. No facial sinus tenderness . Neck: Supple, No cervical or supraclavicular adenopathy. No thyromegaly, no carotic bruits. No JVD. Chest: Lungs are clear bilaterally to auscautation. No rales, crackles, wheeze, rub. Heart: PMI nondisplaced, no heave, regular rate and rhythm. S1 and S2 heard, No S3 or S4, n o murmur, gallop. Abd.: Soft, NT/ND, no hepatosplenomegaly, no masses. No inguinal adenopathy. Extr: No edema, well perfused. Breast: Right mastectomy incision was healing well. There is an incisional scar in the righ t axilla. There is no erythema or discharge. There is no new adenopathy. There is a scar con tracture in the middle, lower part the the axillary incision, which prevent full range of ri ght arm motion. Assessment and Plan: 61-year-old female, s/p right mastectomy with completion right axillar y dissection. The axillary incision was scarring in with contracture. We feel that she is a candidate for right axillary contracture removal. 1. Pre-op workup 2. Pt was consented for the procedure 3. Sheduled for right axillary contracture removal in 2 weeks. Adriana was seen and evaluated by Dr. Heart who agreed with the above assessment and plan. 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
--- OUTSIDE RECORDS SUMMARY | ~2020-05-04 | XMS | Encounter Summary ---
Demographics + + + | Address | [address] | | | [place] [address] | + + + | Home Phone [...] + | Gene Gee | ECON | [address] | | | | | [place], | | | | | [place] [address] | | + + + + + Care Team Providers + +------+ + | Care Video Clerk Name | Role | Phone | [...] | | Hematology & | Diagnoses | Marcus | Sofie | | | | Oncology | Other | Stevan Razo, | Faculty Ch | | | | | pulmonary | MD [address] | | | | | embolism and | [address] | Ave | | | | | infarction | [place], [place] | Mailcode: | | | | | Procedures | [address] | [facility] | | | | | CONSULT TO | Phone: | for Health | | | | | HEMATOLOGY / | [phone] | and Healing, | | | | | ONCOLOGY | Fax: | Building [address], | | | | | | [phone] | 7th Floor | | | | | | | [place], [place] | | | | | | | [address] | | | | | | | Phone: | | | | | | | [phone] | | | | | | | Fax: | | | | | | | [phone] | +--------+--------+ + + + + Reason for Visit + + + | Reason | Comments | + + + | Breast cancer | | + + + | Follow-up encounter | | + + + | Anticoagulant | | | therapy | | + + + | PE - Pulmonary | | | embolism | | + + + Encounter Details +--------+---------+ + + + | Date | Type | Department | Care Team | Description | +--------+---------+ + + + | 12/29/ | Office | Hematology/Medical | Stevan Velazquez, | Other Pulmonary | | 2008 | Visit | Oncology at [facility] | [address] | Embolism and | | | | [address] | [place], [place] | Infarction (Primary | | | | Mailcode: [facility] | [address] | Dx); Breast Cancer | | | | [facility] | [phone] | ([facility]) | | | | and Healing, | | | | | | [facility] | | | | | | [place], [place] | | | | | | [address] | | | | | | [phone] | | | +--------+---------+ + + + [...] + + + | Blood Pressure | 141/74 | 12/29/2008 8:41 AM | | | | | PDT | | + + + + + | Pulse | 76 | 12/29/2008 8:41 AM | | | | | PDT | | + + + + + | Temperature | 36.6 C (97.9 F) | 12/29/2008 8:41 AM | | | | | PDT [...] + + | Weight | 65.3 kg (143 lb 14.4 | 12/29/2008 8:41 AM | | | | oz) | PDT | | + + + + + | Height | - | - | | + + + + + | Body Mass Index | 23.95 | 12/28/2008 11:04 AM | | | | | PDT | | + + + + + documented in this encounter Progress Notes Stevan Velazquez MD - 12/29/2008 9:01 AM PDTFormatting of this note might be different fro m the original. Adriana is a pleasant 63 y/o WF with history of right sided breast cancer. Her tumor was T1cN 0 with two lymph nodes involved with isolated tumor cells only. Her tumor was receptor posit wilbert and HER-2/Maddi negative. She completed in the adjuvant setting chemotherapy with four cyc les of taxotere plus cytoxan given every three weeks. She has been on Arimidex for the past 8 months. Her other medical history includes low bone density, paroxysmal atrial tachycardia , Sjogren's syndrome, and frequent SBOs due to multiple abdominal surgeries that are diverti culitis and ruptured of hepatic cyst. She was most recently diagnosed with pulmonary hyperte nsion during work up for SOB. Pulmonary angiogram failed to confirm pulmonary hypertension- in fact, her pulmonary pressure was normal. 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 Subsequent doppler study fo und DVT in her calf veins but only below the knee on the right side. She has been on coumadi n since September this year. She continues on Arimidex. She is here today with her for f ollow up. S- Doing well Last 1-2 months more energy than before. Feels good about wanting to do things Breathing better- also can keep up with her - back to the baseline two years ago. Fo und to have clots in her right leg and PE noted on CT scan. Pulm angio normal and no pulmona ry HT. Still on coumadin. PT/INR now monthly. INR has been OK- around 2.5 Achy in her hips- now they are gone. A little shoulder ache if she does too much. Working out in the Gym No fever or chills A little cough-sputum production- clear. substernal tightness which is relieved with burping Heart burn all the time- needs to take Tums in the middle of night for reflux. No more episode of abdominal pain. Lactase with every meal which makes a big difference for her. Was having more milk allergy. Lactase really helps. No tarry or bloody stool. Once in a while a little hot flashes. Off boniva and will do reclast iv. Dental appointment- everything Checks up all right. No numbness or tingling sensation No headache- lots of stress coming to see doctors. No FH of blood clots. Mood is good- O- Filed Vitals: 12/29/2008 8:41 AM BP: 141/74 Pulse: 76 Temp: 36.6 C (97.9 F) TempSrc: Oral Weight: 65.273 kg (143 lb 14.4 oz) PainSc: 0 - Zero Alert and oriented Not pale or icteric No oral lesion Neck supple No JVE No tenderness on percussion over sinuses Chest, symmetric expansion, breathing sound is clear No wheezing or rales Heart, RR, no murmur or gallop Abd, soft and non tender, no liver or spleen or mass palpable. No increased rigidity or javon ound No knocking pain down the spine No CVA tenderness Lymphatics, no cervical, axillary, supra-clav or infra-clav LAD palpable. Breast exam- right breast surgically missing. No chest wall lesion. Left breast without con cerning mass or nodule. No nipple deformity or discharge Neuro intact Lab- Component Reference Range 12/29/2008 GLUCOSE, PLASMA 60-99 mg/dL 80 BUN 6-20 mg/dL 14 CREATININE 0.60-1.10 mg/dL 0.93 TOTAL PROTEIN 6.1-7.9 g/dL 7.3 ALBUMIN 3.5-4.7 g/dL 4.1 CALCIUM 8.6-10.2 mg/dL 9.7 TOTAL BILIRUBIN 0.3-1.2 mg/dL 0.8 ALK PHOS 53-141 U/L 63 AST (SGOT) 15-41 U/L 30 SODIUM 134-143 mmol/L 144 (H) POTASSIUM 3.4-5.0 mmol/L 3.7 CHLORIDE 97-108 mmol/L 108 CO2 23-31 mmol/L 29 ALT (SGPT) 13-48 U/L 24 CHOLESTEROL TOTAL < 200 mg/dL 196 LDL < 100 mg/dL 130 (H) VLDL < 31 mg/dL 14 NON-HDL CHOLESTEROL < 130 mg/dL 144 (H) HDL CHOLESTEROL > 40 mg/dL 52 HDL COMMENT Combined. PHOSPHORUS, PLASMA 2.4-4.7 mg/dL 3.3 VITAMIN D 25 HYDROXY, SERUM 30-80 ng/mL 43 INR 0.90-1.20 INR 2.16 (H) TRIGLYCERIDES < 150 mg/dL 70 CT CHEST WO CONTRAST: STUDY: CT chest without contrast 12/28/08 COMPARISON:04/02/08 and 09/17/08 HISTORY: Breast carcinoma, Sjogren's, prior pulmonary embolus. TECHNIQUE: CT was performed through the chest without IV contrast. FINDINGS: There is no pericardial or pleural effusion. Right axillary clips are noted. No enlarged hilar or mediastinal lymph nodes are identified. The heart, aorta and great vessels are normal. Right mastectomy is again noted. There is a stable 3 mm nodule in the right upper lobe, image 60. Peripheral inferior posterior right lower lobe scarring, image 130, measuring 5 mm is unchanged. Previously described lingular nodular opacities have nearly essentially resolved with minimal scarring remaining in the same location. No new pulmonary nodules are identified. Limited images through the upper abdomen reveal bilateral extrarenal pelves. The gallbladder is surgically absent. Numerous varying sized hepatic hypodensities are stable in number and size. The osseous structures are normal. IMPRESSION: Interval near complete resolution of previously described inflammatory lingular nodules. Stable 3 mm right upper lobe pulmonary nodule. A/P- Adriana is here today with her for follow up. She has improved quite a bit over the past several months. Her breathing was described as back to the baseline two years ago. She can now exercise and keeps up with her . She will continue coumadin for now. It i s not clear to me whether she needs to be on life long coumadin. Arimidex is felt to be at l ower risk, if at all, for developing DVT which is quite unlike tamoxifen. I am therefore not sure if Arimidex contributes in a major way to her below the knee DVT and PE. For this reas on, I am going to refer her to see hematology to discuss the optimal length of anticoagulati on. Adriana is seeing Dr. Horowitz who is going to switch her over to zometa at 5 mg yearly. I think this is quite reasonable as Adriana has been having issues with reflux. We discuss that zomet a 4 mg iv every 6 months for three years is associated with a decrease in the risk of recurr ence for receptor positive breast cancer. This was from ABCSG-12 and has been published rece ntly in NEJM. We discuss the risk of zometa involves ONJ, transient fever, joint pain or flu like symptoms. Risk and benefit jaquez, I think it is reasonable to give zometa at 5 mg yearl y. She needs to continue on calcium and vitamin D. Adriana is not having much joint pain. We discuss that Arimidex can be associated with develo pment of unfavorable lipid profile, accelerated bone loss and increased risk of fracture, me nopausal symptoms, joint pain and atrophic vaginitis. Adriana is on crestol and her lipid prof ile seems satisfactory today. Adriana will return in May for mammogram. She will see Dr. Heart at that time for CBE. Her PAF has been under good control. RTC in 4 months. Duration of anticoagulation?? documented in this en counter Plan of Treatment + +------+--------+ + + | Name | Type | Priori | Associated Diagnoses | Date/Time | | | | ty | | | + +------+--------+ + + | LDL | Lab | Routin | Breast Cancer | 12/29/2008 11:07 AM | | CHOLEST,MEASURED, | | e | (HCC) | PDT | | PLASMA | | | | | + +------+--------+ + + documented as of this encounter Procedures + +--------+ + + + | Procedure Name | Priori | Date/Time | Associated Diagnosis | Comments | | | ty | | | | + +--------+ + + + | LDL | Routin | 12/29/2008 | Breast Cancer | Results for this | | CHOLEST,MEASURED, | e | 9:15 AM | (HCC) | procedure are in the | | PLASMA | | PDT | | results section. | + +--------+ + + + | HDL CHOLESTEROL, | Routin | 12/29/2008 | Breast Cancer | Results for this | | PLASMA | e | 9:15 AM | (HCC) | procedure are in the | | | | PDT | | results section. | + +--------+ + + + | TRIGLYCERIDES, | Routin | 12/29/2008 | Breast Cancer | Results for this | | PLASMA | e | 9:15 AM | (HCC) | procedure are in the | | | | PDT | | results section. | + +--------+ + + + | CHOLESTEROL TOTAL, | Routin | 12/29/2008 | Breast Cancer | Results for this | | PLASMA | e | 9:15 AM | (HCC) | procedure are in the | | | | PDT | | results section. | + +--------+ + + + | INR | Routin | 12/29/2008 | Other Pulmonary | Results for this | | | e | 8:50 AM | Embolism and | procedure are in the | | | | PDT | Infarction | results section. | + +--------+ + + + documented in this encounter Results TRIGLYCERIDES, PLASMA (12/29/2008 11:07 AM PDT) + + + + + + | Component | Value | Ref Range | Performed | Pathologist | | | | | At | Signature | + + + + + + | TRIGLYCERID | Combined. | <150 mg/dL | [facility] | | | ES | | | DEPARTMENT | | | [...] | [facility] | [address] | [place] [address] | | | PATHOLOGY | [address] | | | + + + + + | [facility] | [address] | [place] [address] | | | PATHOLOGY | [address] | | | + + + + + HDL CHOLESTEROL, PLASMA (12/29/2008 11:07 AM PDT) + + + + + + | Component | Value | Ref Range | Performed | Pathologist | | | | | At | Signature | + + + + + + | HDL | Combined. | >40 mg/dL | [facility] | | | CHOLESTEROL | | | DEPARTMENT | | | | | | OF | | | | | | PATHOLOGY | | + + + + + + | HDL CMNT | Combined. | | [facility] | | | | [...] | [facility] | [address] | [place] [address] | | | PATHOLOGY | [address] | | | + + + + + | [facility] | [address] | [place] [address] | | | PATHOLOGY | [address] | | | + + + + + CHOLESTEROL TOTAL, PLASMA (12/29/2008 11:07 AM PDT) + + + + + + | Component | Value | Ref Range | Performed | Pathologist | | | | | At | Signature | + + + + + + | CHOLESTEROL | Combined. | <200 mg/dL | [facility] | | | (LAB) | | | [...] + + + | [facility]MENT | [address] | [place] [address] | | | PATHOLOGY | [address] | | | + + + + + | [facility] | [address] | [place] [address] | | | PATHOLOGY | [address] | | | + + + + + INR (12/29/2008 11:07 AM PDT) + + + + + + | Component | Value | Ref Range | Performed | Pathologist | | | | | At | Signature | + + + + + + | INR | 2.16 (H)Comment: | 0.90 - 1.20 INR | [facility] | | | | INR Therapeutic ranges | | DEPARTMENT | | | | for full | | OF | | | | anticoagulation: | | PATHOLOGY | | | | INR for Venous | | | | | | Thromboembolism | | | | | | (2.0-3.0) | | | | | | INR INR for most | | | | | | patients with mech. | | | | | | valves (2.5-3.5) | | | | | | INR | | | | + + + + + + + + | Specimen | + + | Blood - Blood | + + + + + + + | Performing | Address | City/State/Zipcode | Phone Number | | Organization | | | | + + + + + | [facility] | [address] | [place] [address] | | | PATHOLOGY | [address] | | | + + + + + | [facility] | [address] | [place] [address] | | | PATHOLOGY | [address] | | | + + + + + TRIGLYCERIDES, PLASMA (12/29/2008 9:15 AM PDT) + + + + + + | Component | Value | Ref Range | Performed | Pathologist | | | | | At | Signature | + + + + + + | TRIGLYCERID | Not Recd | <150 mg/dL | [facility] | | | ES | | | DEPARTMENT | | | | | | OF | | | | | | PATHOLOGY | | + + + + + + + + | Specimen | + + | Blood - Blood | + + + + + | Narrative | Performed At | + + + | * Corrected 12/29/08 20:57: LOYD LDL ORDERED, prev report: Loyd | [facility] | | LDL | DEPARTMENT OF | | | PATHOLOGY | + + + + + + + + | Performing | Address | City/State/Zipcode | Phone Number | | Organization | | | | + + + + + | [facility] | [address] | [place] [address] | | | PATHOLOGY | [address] | | | + + + + + | [facility] | [address] | [place] [address] | | | PATHOLOGY | [address] | | | + + + + + LDL CHOLEST,MEASURED, PLASMA (12/29/2008 9:15 AM PDT) + + | Specimen | + + | Blood - Blood | + + + + + | Narrative | Performed At | + + + | * Corrected 12/29/08 20:57: LOYD LDL ORDERED, prev report: Loyd | [facility] | | LDL | DEPARTMENT OF | | | PATHOLOGY | + + + + + + + + | Performing | Address | City/State/Zipcode | Phone Number | | Organization | | | | + + + + + | [facility] | [address] | [place] [address] | | | PATHOLOGY | [address] | | | + + + + + | [facility] | [address] | [place] [address] | | | PATHOLOGY | [address] | | | + + + + + HDL CHOLESTEROL, PLASMA (12/29/2008 9:15 AM PDT) + + + + + + | Component | Value | Ref Range | Performed | Pathologist | | | | | At | Signature | + + + + + + | HDL | Not Recd | >40 mg/dL | [facility] | | | CHOLESTEROL | | | DEPARTMENT | | | | | | OF | | | | | | PATHOLOGY | | + + + + + + + + | Specimen | + + | Blood - Blood | + + + + + | Narrative | Performed At | + + + | * Corrected 12/29/08 20:57: LOYD LDL ORDERED, prev report: Loyd | [facility] | | LDL | DEPARTMENT OF | | | PATHOLOGY | + + + + + + + + | Performing | Address | City/State/Zipcode | Phone Number | | Organization | | | | + + + + + | [facility] | [address] | [place] [address] | | | PATHOLOGY | [address] | | | + + + + + | [facility] | [address] | [place] [address] | | | PATHOLOGY | [address] | | | + + + + + CHOLESTEROL TOTAL, PLASMA (12/29/2008 9:15 AM PDT) + + + + + + | Component | Value | Ref Range | Performed | Pathologist | | | | | At | Signature | + + + + + + | CHOLESTEROL | Not Recd | <200 mg/dL | [facility] | | | (LAB) | | | DEPARTMENT | | | | | | OF | | | | | | PATHOLOGY | | + + + + + + + + | Specimen | + + | Blood - Blood | + + + + + | Narrative | Performed At | + + + | * Corrected 12/29/08 20:57: LOYD CANTRELL, prev report: Loyd | [facility] | | LDL | DEPARTMENT OF | | | PATHOLOGY | + + + + + + + + | Performing | Address | City/State/Zipcode | Phone Number | | Organization | | | | + + + + + | [facility] | [address] | [place] [address] | | | PATHOLOGY | [address] | | | + + + + + | [facility] | [address] | [place] [address] | | | PATHOLOGY | [address] | | | + + + + + INR (12/29/2008 8:50 AM PDT) + + + + + + | Component | Value | Ref Range | Performed | Pathologist | | | | | At | Signature | + + + + + + | INR | Not Recd | 0.90 - 1.20 INR | [facility] [...] | [facility] | [address] | [place] [address] | | | PATHOLOGY | [address] | | | + + + + + | [facility] | [address] | [place] [address] | | | PATHOLOGY | [address] | | | + + + + + documented in this encounter Visit Diagnoses + + | Diagnosis | + + | Other pulmonary embolism and infarction - Primary | + + | Breast cancer (HCC) Malignant neoplasm of breast (female), unspecified site | + + documented in this encounter"
--- OUTSIDE RECORDS SUMMARY | ~2020-05-04 | XMS | Encounter Summary ---
Demographics + + + | Address | [address] | | | [place] [address] | + + + | Home Phone | | + + + | Preferred Language | Unknown | + + + | Marital Status | | + + + | Amish Affiliation | CHR | + + + [...] + | Gene Gee | ECON | [address] | | | | | [place], | | | | | [place] [address] | | + + + + + Care Team Providers + +------+ + | Care Appeals Specialist Name | Role | Phone | + +------+ + | Antony Ribera MD | PCP | | + +------+ + Reason for Visit +--------+--------+ + | Reason | Onset | Comments | | | Date | | +--------+--------+ + | Other | 05/02/ | | | | 2011 | | +--------+--------+ + Encounter Details +--------+ + + + + | Date | Type | Department | Care Team | Description | +--------+ + + + + | 05/02/ | Telephone | Plastic and | Kelsi Lopez | Other | | 2011 | | Reconstructive | MD Sudhir | | | | | Surgery at [facility] [address] | | | | | | [address] [facility] | | | | | | for Health and | | | | | | Healing, [address], | | | | | | 5th Floor | | | | | | [place], [place] | | | | | | [address] | | | | | | [phone] | | | +--------+ + + + [...] Notes Telephone Encounter - Jenny Meyer - 05/03/2012 10:29 AM PDTI called and spoke to Mrs. Flynn, she was just inquiring if Dr. Kelsi Lopez has ever used a special type of expand er that remains in place. She discussed with with Dr. Heart who explained to her that the incision for the implant exchange is along the same incision as the initial. Mrs. Flynn was pleased to hear this and would like to keep the same plan as discussed with Dr. Kelsi toth. She will call with further questions or concerns. Next Appointment in [facility] is on 06/11/12 at 2:00 pm with Kelsi Lopez MD . elephone Encounter - Mary Ann Olea - 05/02/2012 4:04 PM PDTPatient saw a new implant in a magazine (one step i mplant) and she was wondering if Dr. Lopez has heard of it and if is is an option for her u pcoming surgery. She has a medical condition that causes her to scar badlyElectronically sig elenita by Mary Ann Howell at 05/02/2012 4:06 PM PDTdocumented in this encounter Plan of Treatment Not on filedocumented as of this encounter Visit Diagnoses Not on filedocumented in this encounter"
--- OUTSIDE RECORDS SUMMARY | ~2020-05-04 | XMS | Encounter Summary ---
Demographics + + + | Address | [address] | | | [place] [address] | + + + | Home Phone | | + + + | Preferred Language | Unknown | + + + | Marital Status | | + + + | Judaism Affiliation | CHR | + + + | Race | White | + + + | Ethnic Group | Not or | + + + Author + + + | Author | [facility] | + + + | Organization | [facility] | + + + | Address | Unknown | + + + | Phone | Unavailable | + + + Support + + + + + | Name | Relationship | Address | Phone | + + + + + | Gene Gee | ECON | [address] | | | | | [place], | | | | | [place] [address] | | + + + + + Care Team Providers + +------+ + | Care Inclusion Intern Name | Role | Phone | + +------+ + | Alec Hill MD | PCP | | + +------+ + Encounter Details +--------+ + + + + | Date | Type | Department | Care Team | Description | +--------+ + + + + | 02/02/ | Document-Sc | Health Information | Other, Faculty | | | 2016 | anned | Services [id number] | [phone] | | | | | [address] | | | | | | Mailcode: [id number] | | | | | | [facility] | | | | | | [place], [place] | | | | | | [address] | | | | | | [phone] | | | +--------+ + + + [...] + + | ORDERS OTHER | | 02/03/2016 | | Results for this | | | | 12:00 AM | | procedure are in the | | | | PDT | | results section. | + +--------+ + + + | ORDERS OTHER | | 02/03/2016 | | Results for this | | | | 12:00 AM | | procedure are in the | | | | PDT | | results section. | + +--------+ + + + documented in this encounter Results ORDERS OTHER (02/03/2016 12:00 AM PDT) + + + | Narrative | Performed At | + + + | | | + + + ORDERS OTHER (02/03/2016 12:00 AM PDT) + + + | Narrative | Performed At | + + + | | | + + + documented in this encounter Visit Diagnoses Not on filedocumented in this encounter"
--- OUTSIDE RECORDS SUMMARY | ~2020-05-04 | XMS | Encounter Summary ---
Demographics + + + | Address | [address] | | | [place] [address] | + + + | Home Phone [...] + | Gene Gee | ECON | [address] | | | | | [place], | | | | | [place] [address] | | + + + + + Care Team Providers + +------+ + | Care Construction Mgr Name | Role | Phone | + [...] + | Closed | | Cardiology | Diagnoses | Alfredo, | Car Stress | | | | | Chest pain | MD Gary | Echo Sj | | | | | Procedures | [address] | [address] | | | | | STRESS | [address] | [address] | | | | | EXERCISE | [address] | Mailcode: | | | | | ECHOCARDIOGR | [place], [place] | OP12B | | | | | AM, ADULT | [address] | Outpatient | | | | | | Phone: | Clinic | | | | | | [phone] | Building | | | | | | Fax: | [place], [place] | | | | | | [phone] | [address] | | | | | | | Phone: | | | | | | | [phone] | +--------+--------+ + + + + Encounter Details +--------+ + + + + | Date | Type | Department | Care Team | Description | +--------+ + + + + | 02/26/ | Hospital | Cardiac | | | | 2011 | Encounter | Non-Invasive Testing | | | | | | at [facility] | | | | | | [address] | | | | | | Mario Cruz | | | | | | Alexi Montero, [address]nd | | | | | | floor [place], [place] | | | | | | [address] | | | | | | [phone] | | | +--------+ + + + [...] | + + + +---------+--------+ + | ezetimibe (ZETIA) | Take 10 [...] documented as of this encounter Progress Notes Dilip Collier - 02/27/2012 2:32 PM PDTExercise stress echocardiogram completed. Final r eport to follow. ANAWaSheri swift RN - 02/27/2012 2:12 PM PDTAt 1400, prior to the beginning of the procedure, the team paused to verify the patient s identity, the procedure to be performed (in accordance wit h the consent,) and the correct side/site. The patient was positioned appropriately. All rel evant images and results were properly labeled and displayed. We addressed antibiotic prophy laxis and fluids for irrigation as applicable to this patient. Any safety precautions were a ddressed. documented in this encou nter Miscellaneous Notes Scan - Ligia, Faculty - 03/06/2012 8:39 AM PDTElectronically signed by Faculty Other at 8:39 AM PDTdocumented in this encounter Plan of Treatment Not on filedocumented as of this encounter Procedures + +--------+ + + + | Procedure Name | Priori | Date/Time | Associated Diagnosis | Comments | | | ty | | | | + +--------+ + + + | STRESS EXERCISE | Routin | 02/27/2012 | Chest pain | Results for this | | ECHOCARDIOGRAM ONLY | e | 12:00 AM | | procedure are in the | | | | PDT | | results section. | + +--------+ + + + documented in this encounter Visit Diagnoses + + | Diagnosis | + + | Chest pain Chest pain, unspecified | + + documented in this encounter Administered Medications + +---------+ +--------+--------+------+ | Medication Order | MAR | Action | Dose | Rate | Site | | | Action | Date | | | | + +---------+ +--------+--------+------+ | perflutren lipid microspheres | New Bag | 02/27/20 | 1.5 mL | mL/hr | | | (aka DEFINITY) injection 1.5 mL | | 12 2:33 | | | | | 1.5 mL, intravenous, PROCEDURE | | PM PDT | | | | | ONCE, 1 dose, 02/27/12 at 1445 | | | | | | + +---------+ +--------+--------+------+ +---+---+ | | | +---+---+ documented in this encounter"
--- OUTSIDE RECORDS SUMMARY | ~2020-05-04 | XMS | Encounter Summary ---
Demographics + + + | Address | [address] | | | [place] [address] | + + + | Home Phone [...] + | Gene Gee | ECON | [address] | | | | | [place], | | | | | [place] [address] | | + + + + + Care Team Providers + +------+ + | Care Centrifugal Extractor Operator Name | Role | Phone | + +------+ + | Antony Ribera MD | PCP | | + +------+ + Reason for Visit + +--------+ + | Reason | Onset | Comments | | | Date | | + +--------+ + | Lab findings, | 01/21/ | /24hr pH | | teaching, guidance, | 2012 | | | and counseling | | | + +--------+ + Encounter Details +--------+ + + + + | Date | Type | Department | Care Team | Description | +--------+ + + + + | 01/21/ | Telephone | Digestive Health | Ki Lo | Lab findings, | | 2012 | | Center at [facility] [address] | MD [address] | teaching, guidance, | | | | [facility] | [facility], | and counseling | | | | for Health and | [place] [address] | (Motility/24hr pH) | | | | [place] [address] | [phone] | | | | | [place], [place] | | | | | | [address] | | | | | | [phone] | | | +--------+ + + + [...] this encounter Miscellaneous Notes Telephone Encounter - Eleonora Bonilla MA - 01/23/2013 9:46 AM PDTPt called back to clarify , she did not listen to her message. I let her know the results, she was very pleased. She w ill f/u with referring provider. Sent copies of her results to PCP as well per pts request. She had no other questions to offer. Electronically signed by Eleonora Bonilla MA at 3 9:46 AM PDTTelephone Encounter - Eleonora Bonilla MA - 01/23/2013 9:20 AM PDTResults norm al, cough does not relate to reflux. "Assessment Near absent even physiological intraesophageal acid exposure with 0% of cough e pisodes related to reflux events" Motility study: Assessment Normal esophageal manometry. I called and lvm for the pt stating results are normal and to f/u with referring provider. Office information provided. elephone Encounter - Sheryl Ruffin - 01/21/2013 11:33 AM PDTPt calling for results. Call back Rdhmqyarievnrg signed by Sheryl Ruffin at 01/21/2013 11:34 AM PDTd ocumented in this encounter Plan of Treatment Not on filedocumented as of this encounter Visit Diagnoses Not on filedocumented in this encounter
--- OUTSIDE RECORDS SUMMARY | ~2020-05-04 | XMS | Encounter Summary ---
Demographics + + + | Address | [address] | | | [place] [address] | + + + | Home Phone | | + + + | Preferred Language | Unknown | + + + | Marital Status | | + + + | Alevism Affiliation | 1013 | + + + | Race | White | + + + | Ethnic Group | Not or | + + + Author + + + | Author | [facility] | | | and [place] | + + + | Organization | [facility] | | | [...] Team Providers + +------+ + | Care Hearing Dog Trainer Name | Role | Phone | + +------+ + | Alec Hill MD | PCP | | + +------+ + Reason for Visit + + + | Reason | Comments | + + + | Medication Refill | | + + + Encounter Details +--------+--------+ + + + | Date | Type | Department | Care Team | Description | +--------+--------+ + + + | 04/12/ | Refill | [facility] EP | KelleyMartin macdonald Todd, | Medication Refill | | 2019 | | CARDIOLOGY ELIZA | [address] | | | | | [address] | [place], | | | | | [place], [place] | [place] [address] | | | | | [address] | [phone] | | | | | [phone] | | | +--------+--------+ + + + [...] | + +---+---+---+ + + | Comments: second hand smoke | + + + + + | Sex Assigned at | Date Recorded | | | | + + + | Not on file | | + + + documented as of this encounter Miscellaneous Notes Telephone Encounter - Enma Nielson CMA - 04/12/2020 10:05 AM PDTLast visit: 10-07-2019 Next visit: 04-30-2020 Last labs: 07-29-2019 documented in this en counter Plan of Treatment +--------+ + + + + | Date | Type | Specialty | Care Team | Description | +--------+ + + + + | 05/19/ | Office | Orthopedic Surgery | Tee Choi, | | | 2019 | Visit | | [address] | | | | | | [place] [address] | | | | | | [phone] | | | | | | | | +--------+ + + + + | 05/19/ | Appointment | Cardiology | Martin Kelley, | | | 2019 | | | MD [address] | | | | | | [place], | | | | | | [place] [address] | | | | | | [phone] | | | | | | | | +--------+ + + + + | 11/26/ | Office | Cardiology | Martin Kelley, | | | 2020 | Visit | | MD [address] | | | | | | [place], | | | | | | [place] [address] | | | | | | [phone] | | | | | | | | +--------+ + + + + documented as of this encounter Visit Diagnoses Not on filedocumented in this encounter"
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
--- OUTSIDE RECORDS SUMMARY | ~2020-05-04 | XMS | Encounter Summary ---
Demographics + + + | Address | [address] | | | [place] [address] | + + + | Home Phone [...] + | Gene Gee | ECON | [address] | | | | | [place], | | | | | [place] [address] | | + + + + + Care Team Providers + +------+ + | Care Brick Setter Name | Role | Phone | + +------+ + | Antony Ribera MD | PCP | | + +------+ + Reason for Visit + +--------+ + | Reason | Onset | Comments | | | Date | | + +--------+ + | Refill Request | 02/27/ | potassium chloride | | | 2015 | | + +--------+ + Encounter Details +--------+--------+ + + + | Date | Type | Department | Care Team | Description | +--------+--------+ + + + | 02/27/ | Refill | Cardiology | Elijah Whalen, | Refill Request | | 2015 | | Arrhythmia at [facility] | MD [address] | (potassium chloride) | | | | [address] | Anthony Lipscomb | | | | | [facility] | [place], [place] | | | | | and [place], | [address] | | | | | [place] [address] | [phone] | | | | | Floor [place], [place] | | | | | | [address] | | | | | | [phone] | | | +--------+--------+ + + + [...] this encounter Miscellaneous Notes Telephone Encounter - Agnieszka Simental MA - 02/28/2016 1:55 PM PDT Refill Request for: Requested Prescriptions Pending Prescriptions Disp Refills potassium chloride SR 20 mEq oral tablet,ER particles/crystals 90 tablet 3 Sig: Take 1 tablet by mouth once daily. Patient Last Seen: 06/07/2015 by delta Follow Up Plan: pt due back 05/2016 will message PAS to schedule. Please review and sign if appropriate documented in this en counter Plan of Treatment Not on filedocumented as of this encounter Visit Diagnoses + + | Diagnosis | + + | Atrial tachycardia 427.89 - Primary Other specified cardiac dysrhythmias | + + documented in this encounter"
--- OUTSIDE RECORDS SUMMARY | ~2020-05-04 | XMS | Encounter Summary ---
Demographics + + + | Address | [address] | | | [place] [address] | + + + | Home Phone [...] + | Gene Gee | ECON | [address] | | | | | [place], | | | | | [place] [address] | | + + + + + Care Team Providers + +------+ + | Care Qm Consultant Name | Role | Phone | [...] + + | Closed | Specialty | Surgical | Diagnoses | No | Sro Surg | | | Services | Oncology | Carcinoma | Referring | Onc [facility] | | | Required | | in situ of | Provider Per | [address] | | | | | breast | Patient NO | [facility] | | | | | Breast | REFERRING | for Health | | | | | cancer (HCC) | PROVIDER PER | and Healing, | | | | | | PT | [address] | | | | | | | [place], [place] | | | | | | | [address] | | | | | | | Phone: | | | | | | | [phone] | | | | | | | Fax: | | | | | | | [phone] | +--------+ + + + + + Encounter Details +--------+---------+ + + + | Date | Type | Department | Care Team | Description | +--------+---------+ + + + | 06/05/ | Office | Surgical Oncology | Lu[facility] Heart, | Breast cancer (HCC) | | 2012 | Visit | at [facility] [address] | MD [address] | (Primary Dx) | | | | [facility] | [place], [place] | | | | | Health and Healing, | [address] | | | | | [address] | [phone] | | | | | [place], [place] | | | | | | [address] | | | | | | [phone] | | | +--------+---------+ + + + [...] + + + | Blood Pressure | 118/69 | 06/05/2013 4:18 PM | | | | | PST | | + + + + + | Pulse | 65 | 06/05/2013 4:18 PM | | | | | PST | | + + + + + | Temperature | 36.9 C (98.4 F) | 06/05/2013 4:18 PM | | | | | PST | | + + + + + | Respiratory Rate | 15 | 06/05/2013 4:18 PM | | | | | PST | | + + + + + | Oxygen Saturation | - | - | | + + + + + | Inhaled Oxygen | - | - | | | Concentration | | | | + + + + + | Weight | 64.2 kg (141 lb 9.6 | 06/05/2013 4:18 PM | | | | oz) | PST | | + + + + + | Height | - | - | | + + + + + | Body Mass Index | 23.21 | 03/05/2013 12:57 PM | | | | | PDT | | + + + + + documented in this encounter Progress Notes Luís Heart MD - 06/06/2013 4:59 PM KENDY performed a history and physical examination of the patient and discussed her management with the resident. I reviewed the resident s note and agree with the documented findings and plan of care. She has no evidence of disease on H and P. Her mammography is deferred until she can tolera te it because of recent left breast reduction. She can get it whenever she thinks she's able to tolerate it. Presuming that it will be negative, I'll see her back in 1 year with left m ammograms. [facility] MD screw supervisor Division of Surgical Oncology [id number] [place], [place] [address] [facility] - 06/05/2013 4:44 PM [facility] Surgical Oncology Clinic Note - Follow up ID: Adriana Flynn is a 66 y.o. 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 --She is here for her annual screening . Interval History/Subjective: -Status-post R NAC reconstruction and R medial scar revision on 03/05/13 and left breast ma stopexy. C/b wound dehiscence. -Status post right TE exchange to implant and left breast reduction, 06/2012 Has been experiencing left breast swelling and soreness since [place] operation. In fact, daniel garcía declined mammography today because she has been so sore and swollen. Nipple will be tattooed tomorrow; she is looking forward to this. No longer seeing oncology. Dr. Watt had left. They discharged her from f/up. No longer on medication. 3 months gluten free ROS: No new breast lumps, bumps, nipple discharge. No fevers, chills, night sweats, dysphag ia, abdominal pain, weight loss, unusual myalgias/arthralgias, bony pain, o/w negative Objective: Blood pressure 118/69, pulse 65, temperature 36.9 C (98.4 F), temperature source Oral, resp. rate 15, weight 64.229 kg (141 lb 9.6 oz). CBE: Right breast with mobile, smooth implant in place. Scar well healed without abnormality; it s underlying scar tissue is smooth. Nipple everted without discharge. Left breast with well healed surgical scar; underlying scar tissue is smooth and NTTP. Bilaterally no lumps, skin abnormalities or nipple DC. Axilla without LAD bilaterally. Small supraumbilical hernia, soft, easily reducible, NTTP. No RUQ or LUQ tenderness. Abd soft. Imaging: None today Assessment and Plan: Adriana Flynn is a 66 y.o. female with a history of estrogen receptor positive and Her-2/Maddi negative R breast invasive ductal carcinoma s/p R total mastectomy wi R axillary SLNB and subsequent completion axillary lymph node dissection (0/16 nodes posi tive) in 2006 and adjuvant chemotherapy with taxotere/cytoxan, then arimidex. No longer foll owed by oncology. Currently continuing to see plastics. She has no clinical evidence of dise ase today. Breast cancer (primary encounter diagnosis). As above. No radiology today. -Return for mammography as soon as breast tenderness/edema will allow. -Also RTC 1 year for CBE. PRN sooner for breast-related concerns. Dr. Heart evaluated and examined this patient, as well. BOBO NEWMAN MD documented in this enc ounter Plan of Treatment Not on filedocumented as of this encounter Visit Diagnoses + + | Diagnosis | + + | Breast cancer (HCC) - Primary Malignant neoplasm of breast (female), unspecified site | + + documented in this encounter"
--- OUTSIDE RECORDS SUMMARY | ~2020-05-04 | XMS | Encounter Summary ---
Demographics + + + | Address | [address] | | | [place] [address] | + + + | Home Phone [...] + | Gene Sahil | ECON | [address] | | | | | [place], | | | | | [place] [address] | | + + + + + Care Team Providers + +------+ + | Care Sales Marketing Coordinator Name | Role | Phone | + +------+ + PCP | Unavailable | + +------+ + Encounter Details +--------+ + + + + | Date | Type | Department | Care Team | Description | +--------+ + + + + | 06/24/ | H&P-Transcr | | Physical, History | Hstry & Physical | | 2004 | ibed | | & | | +--------+ + + + + [...] + + documented as of this encounter H&P Notes Interface, Telephone Assembler In - 02/12/2005 8:50 AM PDT [id number] 06/24/2004 06/24/2004 [id number] SAHIL Holman Date of Service: 06/24/2004 History Attending Physician: Katie Callahan M.D. Wood Boat Builder Supervisor Division of Abdominal Organ Transplantation Chief Complaint: The patient is here today for preoperative evaluation of her multiple hepatic cysts. History of Present Illness: Adriana Flynn is a 58-year-old woman who is accompanied to clinic today by her . Patient's hepatic cysts were discovered in 1998 when she received a workup for right upper quadrant pain that was presumed to be acute cholecystitis. At the time it was noted that the patient had multiple hepatic cysts that were asymptomatic. However, in March 2004, patient did have one episode of extreme right upper quadrant abdominal pain radiating to her right shoulder and to her back. She rates this pain as a 10/10. Patient did get evaluated in the emergency department near her home. At that time she had a CT of her abdomen which revealed several large hepatic cysts, the largest of which measured 10 cm by 12 cm and appeared to have radiologic characteristics of intra cyst hemorrhage. Patient had a repeat episode of this pain again in April 2004 at which time she was admitted to her local hospital and received another CT scan which did show that patient's cyst size had advanced from a CT obtained in 2002. The CT from 2002 was for separate reasons related to a hemicolectomy the patient had for diverticulitis. The second CT from April 30 2004 also indicated that there was probable hematoma within the cyst. The patient's other cysts remained stable in size. However, patient does report that her pain has steadily been increasing since her initial presentation with pain in March. She now reports difficulty with deep breathing, difficulty wearing her brassiere, and overall decrease in activity secondary to pain from her cysts. In addition, patient notes that although her pain has primarily been located on her right upper quadrant she is now experiencing pain to the left of midline. Past Medical History: Patient's past medical history is significant for: 1. Sj gren's disease. 2. Asthma. 3. Mitral valve prolapse. 4. Gastroesophageal reflux disease. 5. Fibrocystic disease of the breast. 6. Carpal tunnel syndrome. 7. A diagnosis of fibromyalgia. 8. Temporomandibular joint disease. 9. Esophageal dysmotility. Past Surgical History: 1. She did have an ectopic that burst at age 20. 2. Status post appendectomy at age 25. 3. Status post lysis of adhesions in 2002. 4. Status post bladder suspension at age 51. 5. Status post laparoscopic cholecystectomy in 2002. 6. Status post open hernia repair in 2003 with mesh. 7. Status post left sided hemicolectomy. 8. Status post hemorrhoid repair approximately 12 - 15 years ago. 9. Multiple peripheral operations. For a complete list please see Dr. Mccrary's note of June 16, 2004. ALLERGIES: CIPROFLOXACIN, SULFA DRUGS, AND THIAZIDE DIURETICS. Current Medications: 1. Estrace 0.75 mg patch worn twice per week. 2. Protonix 40 mg p.o. daily. 3. Atenolol 50 mg p.o. daily. 4. Serevent 1 puff q. a.m. 5. Pulmacort 2 puffs q. a.m., 1 puff q. p.m. 6. Flonase p.r.n. Review of Systems: Generally, patient complains only of persistent abdominal pain related to her cysts. She does report some minor weight loss secondary to decreased appetite related to the pain and a feeling of early satiety. Cardiovascular is significant for the aforementioned mitral valve prolapse; atenolol for the dysrhythmia that the patient notes. Respiratory: Patient does complain of some shortness of breath related to her asthma. These symptoms are well controlled with her MDIs. GI: Patient reports no change in her bowel habits, no blood in her stool, no constipation, no diarrhea. : Patient reports no complaints with her urinary tract; no history of urinary tract infection. Patient's renal function is within normal limits. Musculoskeletal: Patient does have a history of both carpal tunnel syndrome and temporomandibular joint disease as well as fibromyalgia diagnosed in 1995. Review of systems is otherwise noncontributory or as mentioned in her past medical history. Family History: Noncontributory. 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 She denies tobacco use, has only rare alcohol use, and denies any history of recreational drug use. Physical Exam Vital Signs: Patient was afebrile; her vital signs were stable in general; she was not in any acute distress; she was a pleasant, thin woman. Cardiovascular: Regular rate and rhythm with a II/ systolic ejection murmur. Respiratory: Lungs clear to auscultation bilaterally. Abdomen: Soft, tender to palpation bilaterally in the hypogastrium; no tender to palpation in the right or left lower quadrants. She does have a well-healed midline incision. She also has a right lower quadrant incision from her appendectomy. She also has well healed scars from her laparoscopic cholecystectomy. Her abdomen is non-distended, however it is possible to palpate the edge of the liver to approximately 6 cm below the costal margin. Patient does report significant tenderness with even light palpation. No splenomegaly is palpable. Patient had no rebound or guarding. Skin: No jaundice. Musculoskeletal: No lower extremity edema. Imaging: Her CT of the abdomen on April 30, 2004, from [facility] showed the following: Multiple large cysts throughout the liver are again appreciated with no change in size in any of the cysts from a comparison exam of April 11, 2004. The largest cyst is in the right lobe of the liver superiorly and measures 9.7 cm by 1.15 cm. On today's exam there is a new swirled high density material in the posterior lateral aspect of this dominant cyst. It is unclear whether this represents contrast material or hemorrhage within the cyst. There is no subcapsular hemorrhage or free fluid in the abdomen. Gallbladder is absent; pancreas appears normal; spleen, kidneys, adrenal glands are unremarkable. Gastrointestinal structures are within normal limits and there was no free air. Impression: This is a 58-year-old woman with an extensive past medical and surgical history with presentation of symptomatic hepatic cysts. Plan: Patient is scheduled for hepatic cystectomy, cyst unroofing, drainage of the cysts, and/or wedge resection of the cysts on June 29, 2004. Procedure, alternatives, risks were discussed with the patient and all the patient's and her 's questions were answered. Dr. Callahan was present for relevant parts of history and physical and concurs with this assessment and plan. Declan Nair M.D. [id number] P A: 06/24/2004 [id number] cc: Declan Bernard M.D. [address] [place] [id number] Saman Ribera M.D. [place] Payroll Director [address] [place] [id number] documented i n this encounter Plan of Treatment Not on filedocumented as of this encounter Visit Diagnoses Not on filedocumented in this encounter"
--- OUTSIDE RECORDS SUMMARY | ~2020-05-04 | XMS | Encounter Summary ---
Demographics + + + | Address | [address] | | | [place] [address] | + + + | Home Phone | | + + + | Preferred Language | Unknown | + + + | Marital Status | | + + + | Methodist Affiliation | CHR | + + + [...] + | Gene Gee | ECON | [address] | | | | | [place], | | | | | [place] [address] | | + + + + + Care Team Providers + +------+ + | Care Price Lister Name | Role | Phone | + +------+ + | Antony Ribera MD | PCP | | + +------+ + Encounter Details +--------+ + + + + | Date | Type | Department | Care Team | Description | +--------+ + + + + | 10/22/ | Results/Int | Pulmonary & | | Unspecified asthma | | 2012 | erpretation | Critical Care | | (Primary Dx) | | | | Medicine at [facility] | | | | | | [address] | | | | | | [address] [facility] | | | | | | [address], [address] Floor | | | | | | [place], [place] | | | | | | [address] | | | | | | [phone] | | | +--------+ + + + [...] documented as of this encounter Progress Notes Lit Juarez MD - 10/25/2012 11:19 AM PDT Refer to PFT report. doc umented in this encounter Plan of Treatment Not on filedocumented as of this encounter Procedures + +--------+ + + + | Procedure Name | Priori | Date/Time | Associated Diagnosis | Comments | | | ty | | | | + +--------+ + + + | [place] EVAL OF | Routin | 10/25/2012 | Unspecified asthma | | | BRONCHOSPASM | e | 11:19 AM | | | | | | PDT | | | + +--------+ + + + | SPIROMETRY BEFORE / | Routin | 10/22/2012 | Asthma | Results for this | | AFTER BRONCHODIL, | e | 12:08 PM | | procedure are in the | | PULM FUNCTION LAB | | PDT | | results section. | + +--------+ + + + documented in this encounter Visit Diagnoses + + | Diagnosis | + + | Unspecified asthma(493.90) - Primary Unspecified asthma | + + documented in this encounter"
--- OUTSIDE RECORDS SUMMARY | ~2020-05-04 | XMS | Encounter Summary ---
Demographics + + + | Address | [address] | | | [place] [address] | + + + | Home Phone | | + + + | Preferred Language | Unknown | + + + | Marital Status | | + + + | Jehovah'S Witness Affiliation | CHR | + + + | Race | White | + + + | Ethnic Group | Not or | + + + Author + + + | Author | [facility] | + + + | Organization | [facility] | + + + | Address | Unknown | + + + | Phone | Unavailable | + + + Support + + + + + | Name | Relationship | Address | Phone | + + + + + | Gene Gee | ECON | [address] | | | | | [place], | | | | | [place] [address] | | + + + + + Care Team Providers + +------+ + | Care Signal Person Name | Role | Phone | + +------+ + | Antony Ribera MD | PCP | | + +------+ + Encounter Details +--------+ + + + + | Date | Type | Department | Care Team | Description | +--------+ + + + + | 08/04/ | Abstract | Cardiology | Elijah Whalen, | | | 2017 | | Arrhythmia at [facility] | [address] | | | | | [address] | [address] | | | | | [facility] | [place], [place] | | | | | and Healing, | [address] | | | | | [facility] | [phone] | | | | | Floor [place], [place] | | | | | | [address] | | | | | | [phone] | | | +--------+ + + + [...]
--- OUTSIDE RECORDS SUMMARY | ~2020-05-04 | XMS | Encounter Summary ---
Demographics + + + | Address | [address] | | | [place] [address] | + + + | Home Phone | | + + + | Preferred Language | Unknown | + + + | Marital Status | | + + + | Hinduism Affiliation | CHR | + + + [...] + | Gene Gee | ECON | [address] | | | | | [place], | | | | | [place] [address] | | + + + + + Care Team Providers + +------+ + | Care Parcel Post Weigher Name | Role | Phone | + +------+ + | Antony Ribera MD | PCP | | + +------+ + Encounter Details +--------+ + + + + | Date | Type | Department | Care Team | Description | +--------+ + + + + | 05/27/ | Hospital | Women's Imaging | | | | 2008 | Encounter | Center at [facility] [address] | | | | | | [facility] [address] | | | | | | [place], [address] [place] [address] | | | | | | [place], [place] | | | | | | [address] | | | | | | [phone] | | | +--------+ + + + [...] Miscellaneous Notes Scan - Other, Faculty - 05/27/2009 11:59 PM PST documented in this encounter Plan of [...] Accession | | | | | | #:[id number], MLO, and | | | | | | XCCL view(s) were taken | | | | | | of the left breast.Prior | | | | | | study comparison: | | | | | | May 21, 2008, [facility] | | | | | | DIG MAMMO DIAGLEFT. | | | | | | December 05, 2007, [facility] DIG | | | | | | [...] | | | | | | dedicated Lot78 System | | | | | | with R2 CAD. Performed | | | | | | at [facility] | | | | | | Science | | | | | | [place].ASSESSMENT: | | | | | | Benign [...] | | + +---------+ + + | [facility] DEPARTMENT OF | | | | | RADIOLOGY | | | | + +---------+ + + documented in this encounter Visit Diagnoses Not on filedocumented in this encounter"
--- OUTSIDE RECORDS SUMMARY | ~2020-05-04 | XMS | Encounter Summary ---
Demographics + + + | Address | [address] | | | [place] [address] | + + + | Home Phone [...] + | Gene Gee | ECON | [address] | | | | | [place], | | | | | [place] [address] | | + + + + + Care Team Providers + +------+ + | Care Supervisor Assembly Name | Role | Phone | + +------+ + | Antony Ribera MD | PCP | | + +------+ + Reason for Visit +--------+--------+ + | Reason | Onset | Comments | | | Date | | +--------+--------+ + | Other | 05/29/ | Cardiac Clearance for colonscopy | | | 2016 | | +--------+--------+ + Encounter Details +--------+ + + + + | Date | Type | Department | Care Team | Description | +--------+ + + + + | 05/29/ | Telephone | Cardiology | Elijah Whalen, | Other (Cardiac | | 2017 | | Arrhythmia at [facility] | [address] | Clearance for | | | | [address] | [address] | colonscopy) | | | | [facility] | [place], [place] | | | | | and [place], | [address] | | | | | [facility] | [phone] | | | | | Floor [place], [place] | | | | | | [address] | | | | | | [phone] | | | +--------+ + + + [...] Telephone Encounter - Virginia Flanagan RN - 05/30/2017 9:10 AM PSTI called patient back with Dr. Whalen's response. Patient verbalizes understanding and is appreciative. elephone Encounte r - Elijah Whalen MD - 05/29/2017 5:58 PM PSTIt's fine for her to have up to 7 days tota l off of anticoag if needed without checking with me. elephone Encounter - Virginia Flanagan RN - 05/29/2017 10: 31 AM PSTSITUATION Patient is calling asking for cardiac clearance for her colonoscopy. BACKGROUND Per Dr. Whalen on 05/16/2017: 1 - Atrial tachycardia - S/p successful ablation of stacey tach 2004. Second EPS for recur rent PSVT showed only non-sustained LA tach - Did not tolerate Class Ic agent (GI issues). 2 - Paroxysmal atrial fibrillation. - Confirmed on Ziopatch after an illnesses in 08/2016 - Unclear how much of her symptoms is from atrial fibrillation vers us PACs versus a PSVT - CHADS 2 Score: [id number] Score: 2HAS-BLED Score: 1. In b alance in this case, most appropriate antithrombotic treatment is anticoagulation. She is cu rrently taking rivaroxabanwithout thromboembolism or major bleeding. 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 PLAN Routing to Dr. Whalen for his opinion if it will be okay for patient to have colonoscopy ( off of Xarelto for 3 days). NURSING OUTCOME EVALUATION Previous nursing concern(s): no previous concern(s). I believe this patient is Moderately Stable. During this encounter, patient/caregiver verbalizes or demonstrates understanding of educat ion provided, verbalizes agreement with the plan, demonstrates ability to perform skill and was active participant/motivated. Virginia Flanagan RN [facility] CARDIOLOGY [facility] CARDIOLOGY ARRHYTHMIA AT [facility] [address] [place] [address] [phone] signed by Virginia Flanagan RN at 05/29/2017 10:33 AM PSTTeleph one Encounter - Meagan Tubbs - 05/29/2017 10:23 AM PSTPatient calls with the following quest ion: Patient is calling to let you know the maximum that she will be off the Xarelto is 3 d ays. Please call and give them the ok for her colonoscopuy Okay to send Mychart Response? Yes The best phone number to reach the patient today is [phone]. Best time to reach the p atient is between Anytime ~~~~ ROUTE TO THE APPROPRIATE PROVIDER'S CAR NURSE POOL ~~~~~ elephone Encounter - Virginia Voss RN - 05/29/2017 10:01 AM PSTSITUATION Patient is calling asking for cardiac clearance for her colonoscopy. BACKGROUND Per Dr. Whalen on 05/16/2017: 1 - Atrial tachycardia - S/p successful ablation of stacey tach 2005. Second EPS for recurrent PSVT sh owed only non-sustained LA tach - Did not tolerate Class Ic agent (GI issues). 2 - Paroxysmal atrial fibrillation. - Confirmed on Ziopatch after an illnesses in 08/2016 - Unclear how much of her symptoms is from atrial fibrillation versus PACs vers us a PSVT - CHADS 2 Score: 0 CHADS2-VASC Score: 2 HAS-BLED Score: 1. In balance in this case, most appropriate antithrombotic treatment is anticoagulation. She is currently taking rivaroxaban without thromboembolism or major bleeding. 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 I have no concerns at this time. PLAN Patient will call me back with answer and then I will route to Dr. Whalen for his opinion. NURSING OUTCOME EVALUATION Previous nursing concern(s): no previous concern(s). I believe this patient is Moderately Stable. During this encounter, patient/caregiver verbalizes or demonstrates understanding of educat ion provided, verbalizes agreement with the plan, demonstrates ability to perform skill and was active participant/motivated. Virginia Flanagan RN [facility] CARDIOLOG[facility] CARDIOLOGY ARRHYTHMIA AT [facility] [address] [facility] [place] [address] [phone] signed by Virginia Flanagan RN at 05/29/2017 10:16 AM PSTTeleph one Encounter - Sheryl Ruffin - 05/29/2017 9:49 AM PSTPt calling wanting to know if Dr. Olson has given the clearance for her colonoscopy? Please call pt, TEL [phone] documented in this encoun ter Plan of Treatment Not on filedocumented as of this encounter Visit Diagnoses Not on filedocumented in this encounter
--- OUTSIDE RECORDS SUMMARY | ~2020-05-04 | XMS | Encounter Summary ---
Demographics + + + | Address | [address] | | | [place] [address] | + + + | Home Phone | | + + + | Preferred Language | Unknown | + + + | Marital Status | | + + + | Uatsdin Affiliation | CHR | + + + [...] + | Gene Gee | ECON | [address] | | | | | [place], | | | | | [place] [address] | | + + + + + Care Team Providers + +------+ + | Care Piping Designer Name | Role | Phone | + +------+ + | Antony Ribera MD | PCP | | + +------+ + Reason for Visit + + + | Reason | Comments | + + + | Abdominal pain | | + + + AUTH/CERT +--------+--------+ + + + + | Status | Reason | Specialty | Diagnoses / | Referred By | Referred To | | | | | Procedures | Contact | Contact | +--------+--------+ + + + + | Closed | | | | | [facility] | | | | | | | [facility] | | | | | | | [address] | | | | | | | [address] | | | | | | | [id number] | | | | | | | [facility] | | | | | | | [facility] | | | | | | | [place], [place] | | | | | | | [address] | +--------+--------+ + + + + Encounter Details +--------+ + + + + | Date | Type | Department | Care Team | Description | +--------+ + + + + | 04/01/ | Hospital | [facility] [address] | Kavin Corrigan MD | | | 2007 - | Encounter | [address] | [address] | | | | | [id number] | [address] [facility] [place], | | | 04/06/ | | [place], | [place] [address] | | | 2007 | | [place] [address] | [phone] | | | | | | | | | | | | Zari Downing MD | | | | | | [address] | | | | | | [place], | | | | | | [place] | | | | | | [phone] | | | | | | | [...] + + + | Blood Pressure | 120/70 | 04/06/2008 7:13 AM | | | | | PDT | | + + + + + | Pulse | 84 | 04/06/2008 7:13 AM | | | | | PDT | | + + + + + | Temperature | 36.8 C (98.2 F) | 04/06/2008 7:13 AM | | | | | PDT | | + + + + + | Respiratory Rate | 16 | 04/06/2008 7:13 AM | | | | | PDT | | + + + + + | Oxygen Saturation | 98% | 04/06/2008 7:13 AM | | | | | PDT | | + + + + + | Inhaled Oxygen | - | - | | | Concentration | | | | + + + + + | Weight | 66.5 kg (146 lb 9.7 | 04/06/2008 4:08 AM | | | | oz) | PDT | | + + + + + | Height | - | - | | + + + + + | Body Mass Index | 23.84 | 12/30/2007 10:25 AM | | | | | PDT | | + + + + + documented in this encounter Discharge Summaries Other, Faculty - 04/06/2008 12:17 PM PDT Other, Faculty - 04/06/2008 12:17 PM PDT Matthew Rocha - 04/06/2008 9:17 AM PDTFormatting of this note might be different from the matt ginal. INPATIENT PROVIDER DISCHARGE SUMMARY Admit Date: 04/01/08 Discharge Date: 04/06/08 Service: Emergency General Surgery You or your family member have been primarily hospitalized for: partial Small bowel obstruction- recurrent Principal Final Diagnosis: Recurrent partial small bowel obstruction Additional Diagnoses: Hx sigmoidectomy for diverticulitits Atrial tachycardia s/p ablation Hepatic cysts You or your family had the following procedures: CT abd/pelvis Principal Procedure: CT abdomen and pelvis Additional Procedures: NGT IV fluids Telemetry Serial abd exams Reason for Admission, Significant Findings, Treatment, and Complications Brief Hospital Course: Adriana Flynn is a 62 y.o. Female who presented to ED with abdominal pain, emesis and diarr hea x 1 day. She has had multiple abdominal operations in the past and has had two partial S MARLENE in past [address] scan shows dilated proximal SB loops and concern for possible interna l hernia. It was felt that this was a partial SBO as she was still passing flatus. She is ad mitted to the EGS service, made NPO, NGT placed and IVF started. She is placed on telemetry monitoring for history of atrial tachycardia and ablation. She was followed closely with se schulz abdominal exams. Her NGT had minimal output, but she continued to have intermittant epi sodes of abd pain. Overall she felt her symptoms had improved and the NGT was discontinued. She was started very slowly on a diet. She con't to pass flatus. She was able to advance her diet without N/V or increased abd pain. She remained afebrile. Patient desires copy of CT r eport at discharge. This is her third pSBO in approx 5 weeks and all have able to be managed conservatively. CT results: CT ABDOMEN W CONTRAST Impression: 1. In the pelvis a presumed loop of dilated small bowel is demonstrated suggesting internal hernia versus closed loop obstruction. This may less likely represent a pelvic abscess. 2. Multiple dilated loops of small bowel are noted in the left upper quadrant, which course posterior to the stomach, worrisome for an internal hernia with small bowel obstruction. 3. Nonspecific ectasia of the common duct which is noted to measure to 1.4 cm. Further evaluation with ERCP/MRCP may be considered if clinically indicated. 4. Stable hepatic cysts. I have personally viewed this procedure/exam and reviewed this report. STATUS FINAL / Dr. RYNE LINDSAY Discharge Medications: No new medications. Current Medication List Name Sig ARIMIDEX 1 MG TAB take 1 tablet (1 mg) by oral route once daily ATENOLOL 25 MG TAB take 1 tablet (25 mg) by oral route once daily CITRACAL + D 315 MG-200 UNIT TAB 2 tabs twice a day STOOL SOFTENER 100 MG CAP take 1 capsule (100 mg) by oral route once daily at bedtime as ne eded DOFETILIDE 500 MCG CAP 1 Cap Oral EVERY 12 HOURS DOFETILIDE 500 MCG CAP take 1 capsule (0.5 mg) by oral route 2 times per day PEPCID 40 MG TAB one daily FISH OIL 1,200 MG-144 MG-216 MG CAP one daily GLUCOSAMINE 1,000 MG TAB one daily BONIVA 150 MG TAB once monthly LORAZEPAM 1 MG TAB take 1 tablet (1 mg) by oral route one time daily before bed time as nee ded MULTIVITAMIN OR one daily PROTONIX 40 MG TAB take 1 tablet (40mg) by oral route once daily, can take additional table t in the night if needed PULMICORT 0.25 MG/2 ML NEB SUSPENSION RESTASIS OPHT ou tid SPIRIVA WITH HANDIHALER 18 MCG & INHALATION CAPS inhale the contents of one capsule (18mcg) by inhalation route once daily ANTIOXIDANT FORMULA CAP take 1 capsule by oral route once daily with food VITAMIN D ORAL 2000 IU daily Diet: Regular Activity: No Restrictions Special Instructions: (Treatment, Equipment, Supplies, Dressings, LAB follow-up) none Call: EGS Resident at If you have any of the following: Difficulty breathing or unusual shortness of breath Excessive bleeding, drainage at the operative site Fevers, chills, increased pain that is not relieved by pain medications Persistent nausea or vomiting Other SPECIFIC concerns, such as: Return of symptoms, unable to eat, no BM Follow Up Appointments: PCP: Antony Ribera MD When? As needed Other: EGS clinic if needed. Phone for appointments is [phone] Follow Up Tests: (Tests at [facility] must be entered into Epic) none Condition On Discharge: fair Vital Signs at discharge as appropriate: BP: 120/70 mmHg (04/06/08 7:13 AM) Pulse: 84 (04/06/08 7:13 AM) Resp: 16 (04/06/08 7:13 AM) Wt - Scale: 66.5 kg (146 lbs 9.7 oz) (04/06/08 4:08 AM) Discharge Patient To: Home Does patient have a planned readmission: No Discharge Summary Completed?: Yes- Date 04/06/2008 8:32 AM Discharging Provider: MATTHEW DUNNE Date Completed:04/06/2008 8:32 AM Discharging Attending: Gage Corrigan MD CC Dr Callahan documented in this enc ounter Discharge Instructions Instructions Tasia Yap - 04/05/2008 INPATIENT PROVIDER DISCHARGE AND INTERDISCIPLINARY INSTRUCTIONS Discharge Date: 04/06/08 Service: Emergency General Surgery You or your family member have been primarily hospitalized for: partial Small bowel obstruction- recurrent Principal Final Diagnosis: Recurrent partial small bowel obstruction Additional Diagnoses: Hx sigmoidectomy for diverticulitits Atrial tachycardia s/p ablation Hepatic cysts Rt Breast Ca You or your family had the following procedures: CT abd/pelvis Principal Procedure: CT abdomen and pelvis Additional Procedures: NGT IV fluids Telemetry Serial abd exams Reason for Admission, Significant Findings, Treatment, and Complications Brief Hospital Course: Adriana Flynn is a 62 y.o. Female who presented to ED with abdominal pain, emesis and diarr hea x 1 day. She has had multiple abdominal operations in the past and has had two partial S MARLENE in past [address] scan shows dilated proximal SB loops and concern for possible interna l hernia. It was felt that this was a partial SBO as she was still passing flatus. She is ad mitted to the EGS service, made NPO, NGT placed and IVF started. She is placed on telemetry monitoring for history of atrial tachycardia and ablation. She was followed closely with maikell abdominal exams. Her NGT had minimal output, but she continued to have intermittant epi sodes of abd pain. Overall she felt her symptoms had improved and the NGT was discontinued. She was started very slowly on a diet. She con't to pass flatus. She was able to advance her diet without N/V or increased abd pain. She remained afebrile. CT results: CT ABDOMEN W CONTRAST Date Value Low High Status 04/02/08 Final Value: CT abdomen pelvis 04/02/08 Comparison is made with CT dated 06/22/08 Impression: 1. In the pelvis a presumed loop of dilated small bowel is demonstrated suggesting internal hernia versus closed loop obstruction. This may less likely represent a pelvic abscess. 2. Multiple dilated loops of small bowel are noted in the left upper quadrant, which course posterior to the stomach, worrisome for an internal hernia with small bowel obstruction. 3. Nonspecific ectasia of the common duct which is noted to measure to 1.4 cm. Further evaluation with ERCP/MRCP may be considered if clinically indicated. 4. Stable hepatic cysts. I have personally viewed this procedure/exam and reviewed this report. STATUS FINAL / Dr. RYNE LINDSAY Discharge Medications: No new medications. Current Medication List Name Sig ARIMIDEX 1 MG TAB take 1 tablet (1 mg) by oral route once daily ATENOLOL 25 MG TAB take 1 tablet (25 mg) by oral route once daily CITRACAL + D 315 MG-200 UNIT TAB 2 tabs twice a day STOOL SOFTENER 100 MG CAP take 1 capsule (100 mg) by oral route once daily at bedtime as ne eded DOFETILIDE 500 MCG CAP 1 Cap Oral EVERY 12 HOURS DOFETILIDE 500 MCG CAP take 1 capsule (0.5 mg) by oral route 2 times per day PEPCID 40 MG TAB one daily FISH OIL 1,200 MG-144 MG-216 MG CAP one daily GLUCOSAMINE 1,000 MG TAB one daily BONIVA 150 MG TAB once monthly LORAZEPAM 1 MG TAB take 1 tablet (1 mg) by oral route one time daily before bed time as nee ded MULTIVITAMIN OR one daily PROTONIX 40 MG TAB take 1 tablet (40mg) by oral route once daily, can take additional table t in the night if needed PULMICORT 0.25 MG/2 ML NEB SUSPENSION RESTASIS OPHT ou tid SPIRIVA WITH HANDIHALER 18 MCG & INHALATION CAPS inhale the contents of one capsule (18mcg) by inhalation route once daily ANTIOXIDANT FORMULA CAP take 1 capsule by oral route once daily with food VITAMIN D ORAL 2000 IU daily Diet: Regular Activity: No Restrictions Special Instructions: (Treatment, Equipment, Supplies, Dressings, LAB follow-up) none Call: EGS Resident at If you have any of the following: Difficulty breathing or unusual shortness of breath Excessive bleeding, drainage at the operative site Fevers, chills, increased pain that is not relieved by pain medications Persistent nausea or vomiting Other SPECIFIC concerns, such as: Return of symptoms, unable to eat, no BM Follow Up Appointments: PCP: Antony Ribera MD When? As needed Other: EGS clinic if needed. Phone for appointments is [phone] EGS doctors who helped with your care: Dr Gage Corrigan; Shira Pop MD (chief resident) Follow Up Tests: (Tests at [facility] must be entered into Epic) none Condition On Discharge: fair Vital Signs at discharge as appropriate: BP: 120/70 mmHg (04/06/08 7:13 AM) Pulse: 84 (04/06/08 7:13 AM) Resp: 16 (04/06/08 7:13 AM) Wt - Scale: 66.5 kg (146 lbs 9.7 oz) (04/06/08 4:08 AM) Discharge Patient To: Home Does patient have a planned readmission: No Discharge Summary Completed?: Yes- Date 04/06/2008 8:32 AM Discharging Provider: MATTHEW DUNNE Date Completed:04/06/2008 8:32 AM Discharging Attending: Gage Corrigan MD INPATIENT NURSE ORDER FOR DISCHARGE AND INTERDISCIPLINARY INSTRUCTIONS DISCHARGE DATE: 04/06/2008 PATIENT EDUCATION: Patient given the following printed education materials N/A Review with patient/family: Understanding of disease/injury/surgical repair Yes Signs/symptoms that they should report Yes Understanding of medications and side effects Yes Activity and diet instructions Yes Follow-up appointments Yes Any concerns/fears Yes Smoking Cessation Counseling/Information was given: N/A Additional Instructions: (ex: wound care, tube feeding, trach care, CBG monitoring etc.) N/A Personal Effects/Medications: Sent home with patient Discharged Via: Ambulatory Mode of Transportation: Car Accompanied by: Family/Responsible Republican Discharge Nurse: TASIA YAP RN Date: 04/06/2008 Discharge Time: 10:45 AM documented in this encounter Medications at Time [...] documented as of this encounter Progress Notes Matthew Kohler - 04/06/2008 11:59 AM PDT EGS PROGRESS NOTE S: doing well this am. No N/V. Rupesh reg diet. Still with some lower abd pain that she states is there at baseline. REady to go home. O: Last Vitals: BP 120/70 | Pulse 84 | Temp 36.8 C (98.2 F) | Resp 16 | Wt 66.5 kg (146 lb s 9.7 oz) | SpO2 98% 24 hour Vitals min/max : Pulse Av.8 Min: 75 Max: 94 Systolic (24hrs), Av mmHg, Min:94 mmHg, Max:120 mmHg Diastolic (24hrs), Av mmHg, Min:60 mmHg, Max:80 mmHg Temp Av.6 C (97.8 F) Min: 36.2 C (97.2 F) Max: 37.3 C (99.1 F) Resp Av.7 Min: 14 Max: 16 SpO2 Av.2 % Min: 96 % Max: 98 % Intake/Output Summary (Last 24 hours) at 04/06 1159 Last data filed at 04/06 1000 Gross per 24 hour Intake 2050 ml Output 2550 ml Net -500 ml Gen: NAD, comfortable. Exam done earlier by team. ASSESSMENT/PLAN: Adriana Flynn is a 62 years old female with resolved partial small bowel o bstruction. Pt education to drink liquids or make self NPO if has return of symptoms. Clinic number given if pt needs to see us again. Dc home today Author: MATTHEW DUNNE ez Silveira - 03/17 8:51 AM PDT EGS INPATIENT PROGRESS NOTE Author; DEZ SILVEIRA MD Attending Physician: Interval Hx: Continues to improve. Tolerated clears with only mild nausea, no emesis Physical Exam: Last Vitals: BP 102/70 | Pulse 84 | Temp 36.3 C (97.3 F) | Resp 16 | Wt 70.4 kg (155 lb s 3.3 oz) | SpO2 98% 24 Hour Vital Min/Max: Systolic (24hrs), Av mmHg, Min:100 mmHg, Max:120 mmHg Diastolic (24hrs), Av mmHg, Min:60 mmHg, Max:82 mmHg Pulse Av.7 Min: 70 Max: 88 Temp Av.6 C (97.8 F) Min: 36.3 C (97.3 F) Max: 37.2 C (99 F) Resp Av.0 Min: 16 Max: 16 SpO2 Av.3 % Min: 98 % Max: 99 % Intake/Output Summary (Last 24 hours) at 04/05 0851 Last data filed at 04/05 0400 Gross per 24 hour Intake 2140 ml Output 2200 ml Net -60 ml acetaminophen (aka TYLENOL) liquid 325 mg, 325 mg, Oral, EVERY 4 HOURS NEEDED acetaminophen (aka TYLENOL) suppository 325 mg, 325 mg, Rectal, EVERY 6 HOURS NEEDED anastrozole (aka ARIMIDEX) tablet 1 mg, 1 mg, Oral, DAILY atenolol (aka TENORMIN) tablet 25 mg, 25 mg, Oral, DAILY budesonide (aka PULMICORT) 0.25 mg/2 mL nebulizer suspension 0.25 mg, 0.25 mg, Inhalation, TWICE DAILY cyclosporin (aka RESTASIS) 0.05 % ophthalmic drops 1 Drop, 1 Drop, Both Eyes, EVERY 12 HOUR S dofetilide (aka TIKOSYN) capsule 500 mcg, 500 mcg, Oral, TWICE DAILY lorazepam (aka ATIVAN) tablet 1 mg, 1 mg, Oral, EVERY EVENING NEEDED morphine injection 1-2 mg, 1-2 mg, Intravenous, EVERY 2 HOURS NEEDED morphine injection 2-4 mg, 2-4 mg, Intravenous, EVERY 10 MINUTES NEEDED ondansetron (aka ZOFRAN) injection 4 mg, 4 mg, Intravenous, EVERY 12 HOURS NEEDED ranitidine (aka ZANTAC) IV 50 mg, 50 mg, Intravenous, EVERY 8 HOURS tiotropium (aka SPIRIVA) inhalation 18 mcg, 18 mcg, Inhalation, DAILY General Appearance: NAD Respiratory: CTAB, no wheezes, crackles or rhonchi Cardiovascular: RRR, no murmurs Abd: Soft, NT, ND Ext: No LE edema, pulses intact Skin: Warm Assessment and Plan: 62 yo female with partial SBO -advance diet as tolerated, recommended thick liquids to start -possible d/c home when tolerating diet, low threshold to keep in hospital if does not tole rate -encourage ambulation -change ranitidine to PO DEZ SILVEIRA MD Dez Woody - 008 7:37 AM PDT EGS INPATIENT PROGRESS NOTE Author; DEZ SILVEIRA MD Attending Physician: Zari Downing Interval Hx: Passing flatus, no BM's yet. Pain improved since yesterday. NG tube out. Physical Exam: Last Vitals: BP 112/60 | Pulse 79 | Temp 36.8 C (98.2 F) | Resp 16 | Wt 65.772 kg (145 lbs) | SpO2 98% 24 Hour Vital Min/Max: Systolic (24hrs), Av mmHg, Min:96 mmHg, Max:118 mmHg Diastolic (24hrs), Av mmHg, Min:60 mmHg, Max:70 mmHg Pulse Av.1 Min: 72 Max: 85 Temp Av.8 C (98.3 F) Min: 36.2 C (97.2 F) Max: 38.3 C (100.9 F) Resp Av.0 Min: 16 Max: 16 SpO2 Av.3 % Min: 98 % Max: 99 % Intake/Output Summary (Last 24 hours) at 04/04 0737 Last data filed at 04/04 0700 Gross per 24 hour Intake 1950 ml Output 2800 ml Net -850 ml acetaminophen (aka TYLENOL) liquid 325 mg, 325 mg, Oral, EVERY 4 HOURS NEEDED acetaminophen (aka TYLENOL) suppository 325 mg, 325 mg, Rectal, EVERY 6 HOURS NEEDED anastrozole (aka ARIMIDEX) tablet 1 mg, 1 mg, Oral, DAILY atenolol (aka TENORMIN) tablet 25 mg, 25 mg, Oral, DAILY budesonide (aka PULMICORT) 0.25 mg/2 mL nebulizer suspension 0.25 mg, 0.25 mg, Inhalation, TWICE DAILY cyclosporin (aka RESTASIS) 0.05 % ophthalmic drops 1 Drop, 1 Drop, Both Eyes, EVERY 12 HOUR S dextrose 5%-NaCl 0.45%-KCl 20 mEq/L IV infusion, 100 mL/hr, Intravenous, CONTINUOUS dofetilide (aka TIKOSYN) capsule 500 mcg, 500 mcg, Oral, TWICE DAILY lorazepam (aka ATIVAN) tablet 1 mg, 1 mg, Oral, EVERY EVENING NEEDED morphine injection 1-2 mg, 1-2 mg, Intravenous, EVERY 2 HOURS NEEDED morphine injection 2-4 mg, 2-4 mg, Intravenous, EVERY 10 MINUTES NEEDED ondansetron (aka ZOFRAN) injection 4 mg, 4 mg, Intravenous, EVERY 12 HOURS NEEDED ranitidine (aka ZANTAC) IV 50 mg, 50 mg, Intravenous, EVERY 8 HOURS tiotropium (aka SPIRIVA) inhalation 18 mcg, 18 mcg, Inhalation, DAILY General Appearance: comfortable, alert, NAD Respiratory: CTAB, no wheezes, crackles or rhonchi Cardiovascular: RRR, no murmurs Abd: Soft, NT, ND Ext: No LE edema, pulses intact Skin: Warm Assessment and Plan: 62 yo female with resolving SBO -try sips of clears today -out of bed, ambulate DEZ SILVEIRA MD ynn Lui - 10:28 AM PDT Initial Nutrition Note ASSESSMENT: Client hx: Adriana Flynn is a 62 y.o. Female with SBO Past Medical History Diagnosis Date Sjogrens Syndrome 1995 Fibromyalgia 1995 Mitral Valve Prolapse 1989 GERD (Gastroesophageal Reflux Disease) 1995 Asthma 1999 TMJ (Dislocation of Temporomandibular Joint) Fibrocystic Disease of Breast 1978 Diverticul Disease Small and Large Intestine, no Perforati or Abscess Skin Cancer back Small Bowel Obstruction 07/20,10/19,02/19 Atrial Tachycardia 07/20 Bursitis 2005 Plantar Fascial Fibromatosis 2007 plantar fascial tear Osteopenia 12/30/2007 DXA 09/05/07: L -2.1 H -1.1 Food/Nutrition Hx: NPO I/O = 1050 ml/1200 ml Biochems: Alb 3.8 Anthros: Adm wt 65.7 kg DIAGNOSIS: Inadequate protein-energy intake related to SBO , as shown by pt NPO at this time. Pt with minimal NGT output over night. Plan to medically manage SBO at this time. Alb is WNL at t his time. INTERVENTION: Nutrition Prescription: 7030-7326 kcal (25-30 kcal/kg), 78-99 g pro (1.2-1.5 g pro/kg) Recs for Diet Order Change: Rec ADAT when feasible Nutrition will follow resolution of SBO, ADAT and tolerance Lynn Lui, RD Pager [phone] Dez Woody - 8 9:45 AM PDT EGS INPATIENT PROGRESS NOTE Author; DEZ SILVEIRA MD Attending Physician: Interval Hx: Slept well overnight. Minimal NG output Woke in early am with "hard" abdomen. Is now soft. Passing flatus, especially when walking. No BM. Physical Exam: Last Vitals: BP 100/68 | Pulse 73 | Temp 36.2 C (97.2 F) | Resp 16 | Wt 65.772 kg (145 lbs) | SpO2 98% 24 Hour Vital Min/Max: Systolic (24hrs), Av mmHg, Min:98 mmHg, Max:102 mmHg Diastolic (24hrs), Av mmHg, Min:60 mmHg, Max:68 mmHg Pulse Av.8 Min: 65 Max: 79 Temp Av.5 C (97.7 F) Min: 36.2 C (97.2 F) Max: 37.2 C (99 F) Resp Av.0 Min: 16 Max: 16 SpO2 Av.7 % Min: 96 % Max: 98 % Intake/Output Summary (Last 24 hours) at 04/03 949 Last data filed at 04/03 09 Gross per 24 hour Intake 2360 ml Output 2300 ml Net 60 ml Labs: Lab Results Lab Test Name Results Date/Time NA 141 04/01/08 NA 141 09/05/07 K 3.9 04/01/08 K 4.3 09/05/07 CL 105 04/01/08 CL 107 09/05/07 BICARB 26 04/01/08 BICARB 28 09/05/07 BUN 12 04/01/08 BUN 11 09/05/07 CR 0.88 04/01/08 CR 0.9 09/05/07 GLU 115 04/01/08 GLU 107 09/05/07 CA 9.5 04/01/08 CA 9.4 09/05/07 Lab Results Lab Test Name Value Date/Time MG 2.0 08/23/04 Lab Results Lab Test Name Results Date/Time WBC 9.7 04/01/08 WBC 6.3 09/05/07 HB 13.8 04/01/08 HB 11.3 09/05/07 HCT 41.2 04/01/08 HCT 34.8 09/05/07 PLT 193 04/01/08 PLT 304 09/05/07 MCV 84.8 04/01/08 RDW 15.0 04/01/08 acetaminophen (aka TYLENOL) liquid 325 mg, 325 mg, Oral, EVERY 4 HOURS NEEDED acetaminophen (aka TYLENOL) suppository 325 mg, 325 mg, Rectal, EVERY 6 HOURS NEEDED anastrozole (aka ARIMIDEX) tablet 1 mg, 1 mg, Oral, DAILY atenolol (aka TENORMIN) tablet 25 mg, 25 mg, Oral, DAILY budesonide (aka PULMICORT) 0.25 mg/2 mL nebulizer suspension 0.25 mg, 0.25 mg, Inhalation, TWICE DAILY cyclosporin (aka RESTASIS) 0.05 % ophthalmic drops 1 Drop, 1 Drop, Both Eyes, EVERY 12 HOUR S dofetilide (aka TIKOSYN) capsule 500 mcg, 500 mcg, Oral, TWICE DAILY lorazepam (aka ATIVAN) tablet 1 mg, 1 mg, Oral, EVERY EVENING NEEDED morphine injection 1-2 mg, 1-2 mg, Intravenous, EVERY 2 HOURS NEEDED morphine injection 2-4 mg, 2-4 mg, Intravenous, EVERY 10 MINUTES NEEDED ondansetron (aka ZOFRAN) injection 4 mg, 4 mg, Intravenous, EVERY 12 HOURS NEEDED ranitidine (aka ZANTAC) IV 50 mg, 50 mg, Intravenous, EVERY 8 HOURS tiotropium (aka SPIRIVA) inhalation 18 mcg, 18 mcg, Inhalation, DAILY General Appearance: sleeping, but arousable, NAD Respiratory: CTAB, no wheezes, crackles or rhonchi Cardiovascular: RRR, no murmurs Abd: Soft, mild tenderness, worse on right Skin: Warm Assessment and Plan: 62 yo female with likely partial SBO. -Beginning to feel better. Passing flatus. -continue NG tube. -encourage ambulation. -keep NPO DEZ SILVEIRA MD [address] [id number] documented in this encoun ter H&P Gage Landrum Md - 04/02/2008 4:23 AM PDTI saw and evaluated the patient. I agree with the f indings and the plan of care as documented in the resident s note. I have again reviewed her CT scan and I am not impressed with the findings and the patient's lack of physical find ings at this time. I would recommend against surgery, unless signs and symptoms significant ly worsen. She has had multiple procedures in the past and apparently has had several bouts of non-surgically managed SBO. I would continue in this vein at the [facility] and change cou rse only if S/S persist or worsen. KAVIN CORRIGAN MD [address] [address] Scott Arredondo V - 8 4:23 AM PDT CC: Abdominal pain with hx of recurrent SBO HPI: 62 year-old female with extensive intrabdominal surgical hx including sigmoid resecti on and primary anstomosis for diverticulitis, Cystectomy and marsupialization and sclerosis of multiple symptomatic hepatic cysts, normal colonoscopy 2005 presenting with diffuse abdom inal pain, nonbilious emesis and diarrhea x 1 day. She had SBO 5 weeks ago. Each time gogo dean concervatively. Had emesis en route to ED, Three episodes of diarrhea in house. Takes stool softeners routinely. Last meal 1600 yesterday. Able to keep down liquids. CT prelimin tavares read shows hepatic cysts as before. Surgically abscent wil. Chronic CBD dilatation. Mu ltiple distended prox and decompressed distal SB loops and colon concerning for high grade o bstruction. Focal dilated short seg of bowel in pelvis w adj stranding/fluid susp for inter nal hernia. ROS: negative aside from that mentioned in HPI. Past Medical History Diagnosis Date Sjogrens Syndrome 1995 Fibromyalgia 1995 Mitral Valve Prolapse 1989 GERD (Gastroesophageal Reflux Disease) 1995 Asthma 1999 TMJ (Dislocation of Temporomandibular Joint) Fibrocystic Disease of Breast 1978 Diverticul Disease Small and Large Intestine, no Perforati or Abscess Skin Cancer back Small Bowel Obstruction 07/20,10/19,02/19 Atrial Tachycardia 07/20 Bursitis 2005 Plantar Fascial Fibromatosis 2007 plantar fascial tear Osteopenia 12/30/2007 DXA 09/05/07: L -2.1 H -1.1 Past Surgical History Procedure Date Ectopic age [...] Hinojosa Hx hemorrhoidectomy 1991 Left leg veins 1992 Bunions/hammer toes/neuromas 1998,1999 Dr. Raymond Rose Heart ablation 12/16/2004,09/21/2005 Dr. Fuentes, [facility] Right breast cancer status post right-sided simple mastectomy for invasive ductal carcinoma, grade 1 pT1c N0i+ Mx. status post adjuvant chemotherapy, last treatment 08/26/19 08. Wide local excision of basal cell carcinoma 07/22/2007. No current hospital medications on file prior to encounter. Current outpatient prescriptions prior to encounter Medication Sig Dispense Refill anastrozole (ARIMIDEX) 1 mg Oral Tablet take 1 tablet (1 mg) by oral route once daily 90 2 Atenolol 25 mg Oral Tablet take 1 tablet (25 mg) by oral route once daily calcium citrate-vitamin D (CITRACAL + D) 315-200 mg-unit Oral Tablet 2 tabs twice a day Docusate Sodium (STOOL SOFTENER) 100 mg Oral Capsule take 1 capsule (100 mg) by oral ro [place] once daily at bedtime as needed dofetilide 500 mcg Oral Capsule 1 Cap Oral EVERY 12 HOURS 60 5 dofetilide 500 mcg Oral Capsule take 1 capsule (0.5 mg) by oral route 2 times per day 60 5 famotidine (PEPCID) 40 mg Oral Tablet one daily Fish Oil-DHA-EPA (FISH OIL) 1,200-144-216 mg Oral Capsule one daily Glucosamine 1,000 mg Oral Tablet one daily ibandronate (BONIVA) 150 mg Oral Tablet once monthly lorazepam 1 mg Oral Tablet take 1 tablet (1 mg) by oral route one time daily before bed time as needed 30 1 MULTIVITAMIN OR one daily PROTONIX 40 mg Oral Tablet, Delayed Release (E.C.) take 1 tablet (40mg) by oral route o nce daily, can take additional tablet in the night if needed 180 3 PULMICORT 0.25 MG/2 ML INHL NEBU RESTASIS OPHT ou tid SPIRIVA WITH HANDIHALER 18 MCG & INHALATION CAPS inhale the contents of one capsule (18 mcg) by inhalation route once daily Vitamin A-Vitamin C-Vit E-Min (ANTIOXIDANT FORMULA) Oral Capsule take 1 capsule by oral route once daily with food VITAMIN D ORAL 2000 IU daily Allergies Allergen Reactions Sulfa (sulfonamides) Swelling-Facial Ciprofloxacin Hives and Rash Triamterene-hydrochlorothiazid BREAST LUMPS Celebrex (celecoxib) Diarrhea and Cough Albuterol Tachycardia Flecainide Acetate Rash Propafenone unknown Tape Adherent Rash History Social History Marital Status: Spouse Name: N/A Number of Children: N/A Years of Education: N/A Occupational History retired 2000 Social History Main Topics Tobacco Use: Never Alcohol Use: No Drug Use: No Sexually Active: Not on file Other Topics Concern Not on file Social History Narrative No narrative on file Family History Problem Relation Diabetes Heart Additional Family History Mother osteoporosis/hip fracture Last Vitals: BP 148/67 | Pulse 94 | Temp 37.2 C (99 F) | Resp 18 | Wt 65.772 kg (145 lb s) | SpO2 98% 24 Hour Vital Min/Max: Systolic (24hrs), Av mmHg, Min:117 mmHg, Max:148 mmHg Diastolic (24hrs), Av mmHg, Min:67 mmHg, Max:69 mmHg Pulse Av.7 Min: 75 Max: 94 Temp Av C (98.6 F) Min: 36.8 C (98.2 F) Max: 37.2 C (99 F) Resp Av.7 Min: 16 Max: 18 SpO2 Av.7 % Min: 98 % Max: 99 % No intake or output data in the 24 hours ending 04/02 0441 GEN: AO, NAD CTAB RRR Abdomen nd, soft with epigastric and LLQ ttp. No hernias appreciated. Well healed surgical scars. Ext wwp, no edema Chemistries: Last 72 Hours (or 3 results): Recent Labs Basename 04/01/08 2229 NA 141 K 3.9 CL 105 BICARB 26 BUN 12 CR 0.88 CA 9.5 MG -- PO4 -- Liver Tests: Last 72 hours (or 3 results) Recent Labs Basename 04/01/08 2229 AST 24 ALT 21 TBILI 1.1 AP 66 ALB 3.8 TP 6.8 CBC with diff last 72 hours (or 3 results) Recent Labs Basename 04/01/08 2229 WBC 9.7 HB 13.8 HCT 41.2 PLT 193 NEUTROPERC 83* BANDPCT -- LYMPHPERC 10* MONOPERC 7 BASOPERC 0 EOSPERC 0* Assessment:pSBO Plan: Admit to EGS NPO, IVF, NGT telemetry D/w Dr. Jennifer Grant documented in this encounte r Procedure Notes Other, Faculty - 10/26/2010 2:02 PM PDTAssociated Order(s): ORDERS OTHER; ORDERS OTHER ther, Faculty - 008 12:17 PM PDTAssociated Order(s): RADIOLOGY Other, Faculty - 04/06/2008 12:17 PM PDTAsso ciated Order(s): ORDERS OTHER Other, Faculty - 04/06/2008 12:17 PM PDT documented in this encounter ED Notes Mary Taylor - 04/02/2008 6:39 AM PDTSBAR report to SAM Suresh on 5A. She states t he floor cannot take pt until after 0730. Electronically signed by Mary Taylor at 6:39 AM PDTCambreMary pierce - 04/02/2008 6:10 AM PDTNG tube placed without ev ent, 1 attempt, left nare, secured with tape per pt request. Pt tolerated procedure well. Pl acement verified with auscultation and gastric contents returned. NG to low continuous sucti on per orders. VSS. Pt in position of comfort, given moist swab for mouth, refuses other com fort interventions at this time 6 :12 AM PDTMary Taylor - 04/02/2008 4:28 AM SUSIE FERRER at bedsideElectronically sign ed by Mary Taylor at 04/02/2008 4:28 AM PDTMary Taylor - 04/02/2008 3:25 AM PDTCare assumed at 0315 while pt is CTElectronically signed by Mary Taylor at 3:25 AM PDTMary Taylor - 04/02/2008 3:[address] nzo Morrell - 3:[address] with cna 3 :03 AM Enzo Brizuela - 04/02/2008 1:[address] contrast started at 0130. ROUTER OPERATOR notif ied Sumaya Vargas - 03/16 12:02 AM PDT Abdominal pain There has been diarrhea, nausea and vomiting. There has been no fever, no melena, no const ipation, no dysuria, no frequency and no headaches. Pt c/o 'burning in stomach' last night, ate dinner, this am 'bloated up like a watermelon', had bm this am ( soft brown stool ), pain and distension worse over the course of the day w ith some nausea/vomiting. Drove here from [facility] as she has been seen here many times fo r a variety of medical conditions. Five weeks ago partial SBO resolved spontaneously. Last BM less than two hours ago very soft brown stool, no blood, pt is passing flatus. No chest pain/pressure, no syncope, no blood in stool. PMHX: BRCA - finished tx 08/16/07, atrial tach s/p ablation x 2, SBO x 5, sjogren's, GERD, asthma Past Medical History Diagnosis Date Sjogrens Syndrome 1995 Fibromyalgia 1995 Mitral Valve Prolapse 1989 GERD (Gastroesophageal Reflux Disease) 1995 Asthma 1999 TMJ (Dislocation of Temporomandibular Joint) Fibrocystic Disease of Breast 1978 Diverticul Disease Small and Large Intestine, no Perforati or Abscess Skin Cancer back Small Bowel Obstruction 07/20,10/19,02/19 Atrial Tachycardia 07/20 Bursitis 2006 Plantar Fascial Fibromatosis 2007 plantar fascial tear Osteopenia 12/30/2007 DXA 09/05/07: L -2.1 H -1.1 Allergies Allergen Reactions Sulfa (sulfonamides) Swelling-Facial Ciprofloxacin Hives and Rash Triamterene-hydrochlorothiazid BREAST LUMPS Celebrex (celecoxib) Diarrhea and Cough Albuterol Tachycardia Flecainide Acetate Rash Propafenone unknown Tape Adherent Rash No current hospital medications on file prior to encounter. Current outpatient prescriptions prior to encounter Medication Sig Dispense Refill anastrozole (ARIMIDEX) 1 mg Oral Tablet take 1 tablet (1 mg) by oral route once daily 90 2 Atenolol 25 mg Oral Tablet take 1 tablet (25 mg) by oral route once daily calcium citrate-vitamin D (CITRACAL + D) 315-200 mg-unit Oral Tablet 2 tabs twice a day Docusate Sodium (STOOL SOFTENER) 100 mg Oral Capsule take 1 capsule (100 mg) by oral ro [place] once daily at bedtime as needed dofetilide 500 mcg Oral Capsule 1 Cap Oral EVERY 12 HOURS 60 5 dofetilide 500 mcg Oral Capsule take 1 capsule (0.5 mg) by oral route 2 times per day 60 5 famotidine (PEPCID) 40 mg Oral Tablet one daily Fish Oil-DHA-EPA (FISH OIL) 1,200-144-216 mg Oral Capsule one daily Glucosamine 1,000 mg Oral Tablet one daily ibandronate (BONIVA) 150 mg Oral Tablet once monthly lorazepam 1 mg Oral Tablet take 1 tablet (1 mg) by oral route one time daily before bed time as needed 30 1 MULTIVITAMIN OR one daily PROTONIX 40 mg Oral Tablet, Delayed Release (E.C.) take 1 tablet (40mg) by oral route o nce daily, can take additional tablet in the night if needed 180 3 PULMICORT 0.25 MG/2 ML INHL NEBU RESTASIS OPHT ou tid SPIRIVA WITH HANDIHALER 18 MCG & INHALATION CAPS inhale the contents of one capsule (18 mcg) by inhalation route once daily Vitamin A-Vitamin C-Vit E-Min (ANTIOXIDANT FORMULA) Oral Capsule take 1 capsule by oral route once daily with food VITAMIN D ORAL 2000 IU daily Review of Systems Constitutional: Reports malaise/fatigue. Reports no fever and no chills. Skin: Reports no rash. HENT: Reports no headaches, no congestion and no sore throat. There is no stridor. Eyes: Reports no pain. Cardiovascular: Reports no chest pain. Respiratory: Reports no cough. Is experiencing no shortness of breath and no wheezing. Gastrointestinal: Reports nausea, vomiting, abdominal pain and diarrhea. Reports no constip ation, no blood in stool and no melena. Genitourinary: Reports no dysuria, no urgency and no frequency. Musculoskeletal: Reports no neck pain and no back pain. Neurological: Reports no dizziness, no tingling, no tremors, no sensory change and no loss of consciousness. All other systems reviewed and are negative. Physical Exam Nursing note and vitals reviewed. Constitutional: She is oriented. She appears not toxic, not dehydrated, not diaphoretic and not distressed. HENT: Head: Normocephalic and atraumatic. Mouth/Throat: Oropharynx is clear and moist. Eyes: Conjunctiva normal, extraocular motions normal, pupils equal, round and reactive to l ight. Right eye exhibits no discharge and no scleral icterus. Left eye exhibits no discharg e and no scleral icterus. Neck: Normal range of motion. Neck supple. No JVD present. No stridor and no tracheal devia tion present. No thyromegaly present. Cardiovascular: Normal rate, regular rhythm, normal heart sounds and intact distal pulses. Exam reveals no gallop and no friction rub. No murmur heard. Pulmonary/Chest: Effort normal and breath sounds normal. She exhibits no respiratory distre ss. She has no wheezes. She has no rales. Abdominal: Abdomen soft. She exhibits distension. She exhibits no mass. She exhibits no org anomegaly. She has no rebound and no guarding. Tenderness present. Moderately TTP, moderately distended, BS hypoactive Musculoskeletal: Normal range of motion. She exhibits no edema and no tenderness. Neurological: She is alert and oriented. Cn grossly intact Skin: Skin is warm and dry. No erythema and no rash noted. She is not diaphoretic. Psychiatric: She displays normal mood, memory, affect, and judgment. Clinical Course: Pt with hx of multiple SBO after bowel resection for diverticulitis. Pt describes sxs as s imilar. CT confirms likely closed loop obstruction with concern for internal hernia. Pt's VS and labs reassuring, lactate wnl. EGS consulted, and will admit pt for further eval and tx. Pt and spouse understand and concur with plan of care. PT HD stable while in ED. Assessment and Plan: A: Bowel obstruction Possible internal hernia P: Fluids, pain control, antiemetics, NG Admit to EGS Deric Fan ent, RN - 04/01/2008 9:48 PM PDTREASSESSMENT: NAD. VSS. GCS 15. ntony Chowdhury - 04/01/2008 8:20 PM PDTPT requesting IV therapy only for IV insertion and lab draw due to history. Electronically sign ed by Antony Chowdhury at 04/01/2008 8:21 PM PDTAntony Chowdhury - 04/01/2008 8:17 PM PDT Pt having dry heaves while in triage. Last ate yesterday at 1700. ntony Chowdhury - 04/01/2008 8:10 PM PDTLymphed mynor in right arm, right mastectomy. NO BP's in right arm. ntony Chowdhury - 04/01/2008 8:08 PM PDTThinks that she may have a SBO. Abd pain, nausea, vomiting, for last six weeks. Hx of 4 SBO in last 4 years . Pt from [place]. Diarrhea started within last 1 hour. documented in this encounter Miscellaneous Notes Scan - Other, Faculty - 04/06/2008 12:17 PM PDT Scan - Other, Faculty - 04/06/2008 12:17 P M PDT Scan - Other, Faculty - 04/06/2008 12:17 PM PDT Scan - Other, Faculty - 04/06/2008 1 2:17 PM PDT Scan - Other, Faculty - 04/06/2008 12:17 PM PDT Scan - Other, Faculty - 2007 12:17 PM PDT ED Teaching Notes - Zari Downing - 04/02/2008 8:43 AM PDTFormatting o f this note might be different from the original. Faculty Note, Emergency Department I saw and evaluated the patient and discussed the diagnosis and management of the patient w [facility] Resident Dr Denny Wang. I performed and confirmed the witt portions of the service. See a lso the Resident's note from today's visit. I agree with the documentation findings and plan of care. I have reviewed the medications, allergies, past medical history, social history, and famil y history. A complete review of systems was taken and is negative except as follows. Abdomin al distention, pain,vomiting. I reviewed the patient's medical records and prior ED and hospital visits. Note: HPI: 62F with hx of ca, sbo, liver cysts multiple abdominal surgeries here with abdominal p ain and distention and vomiting- she thinks she has a recurrence of an sbo. PE: BP 100/53 | Pulse 78 | Temp 37.2 C | Resp 18 | Wt 65.772 kg (145 lbs) | SpO2 98% Gen: Alert, nontoxic but uncomfortable appearing, pleasant. HEENT: face sym. Neck: supple Cards: RRR no mrg. Pulses intact radially B. Pulm: CTAB with good breath sounds B, no wrr. GI: Abd soft, mild distention; mild diffuse tenderness. Not acute surgical abd, no rebound or guarding Neuro: alert, oriented, moves all extremities equally and with good strength grossly, face sym, speech normal. Neck supple with full rom. Skin: wnl, well perfused, no rashes. Ext: no edema. MSK: Atraumatic ED Course: IV acess obtained. 1L NS UMDS. NG placed. Pain control and antiemetics- zofran. Labs and ct obtained Results for orders placed during the hospital encounter of 04/01/2008 COMPLETE METABOLIC SET (NA,K,CL,CO2,BUN,CREAT,GLUC,CA,AST,ALT,BILI TOTAL,ALK PHOS,ALB,PROT TOTAL) Component Value Range GLUCOSE (LAB) 115 (*) 60-99 (mg/dL) BUN 12 6-20 (mg/dL) CREATININE,PLASMA 0.88 0.60-1.10 (mg/dL) TOTAL PROTEIN 6.8 6.1-7.9 (g/dL) ALBUMIN (LAB) 3.8 3.5-4.7 (g/dL) CALCIUM (LAB) 9.5 8.6-10.2 (mg/dL) BILIRUBIN TOTAL 1.1 0.3-1.2 (mg/dL) ALK PHOS 66 53-141 (U/L) AST(SGOT) 24 15-41 (U/L) SODIUM (LAB) 141 134-143 (mmol/L) POTASSIUM (LAB) 3.9 3.4-5.0 (mmol/L) CHLORIDE 105 97-108 (mmol/L) TOTAL CO2 26 23-31 (mmol/L) ALT (SGPT) 21 13-48 (U/L) CBC, WITH DIFFERENTIAL Component Value Range WHITE CELL COUNT 9.7 4.4-11.0 (K/cu mm) RED CELL COUNT 4.86 4.00-5.20 (M/cu mm) HEMOGLOBIN 13.8 12.0-16.0 (g/dL) HEMATOCRIT 41.2 36.0-46.0 (%) MCV 84.8 80.0-96.0 (fL) MCHC 33.5 33.4-35.5 (g/dL) RDW 15.0 11.5-15.0 (%) PLATELET COUNT 193 150-400 (K/cu mm) LIPASE, PLASMA Component Value Range LIPASE (LAB) 14 (*) 22-51 (U/L) AUTO DIFFERENTIAL Component Value Range NEUTROPHIL % 83 (*) 50-70 (%) LYMPHOCYTE % 10 (*) 18-42 (%) MONOCYTE % 7 2-8 (%) EOS % 0 (*) 1-3 (%) BASO % 0 < 3- (%) NEUTROPHIL # 8.1 (*) 1.8-7.7 (K/cu mm) LYMPHOCYTE # 1.0 1.0-4.8 (K/cu mm) MONOCYTE # 0.7 < 0.9- (K/cu mm) EOS # 0.0 < 0.6- (K/cu mm) BASO # 0.0 < 0.3- LACTIC ACID, PLASMA Component Value Range LACTIC ACID PLASMA 1.1 - (mmol/L) A/P: 62F with complicated abdominal history here with recurrent SBO and possible internal h ernia. NG placed. Pt admitted to EGS after consult where they saw her in the ED. Diagnosis: SBO. Dispo: admit. [place] documented in this encoun ter Plan of Treatment Not on filedocumented as of this encounter Procedures + +--------+ + + + | Procedure Name | Priori | Date/Time | Associated Diagnosis | Comments | | | ty | | | | + +--------+ + + + | ORDERS OTHER | | 04/06/2008 | | Results for this | | | | 12:17 PM | | procedure are in the | | | | PDT | | results section. | + +--------+ + + + | RADIOLOGY | | 04/06/2008 | | Results for this | | | | 12:17 PM | | procedure are in the | | | | PDT | | results section. | + +--------+ + + + | RESP CARE THERAPY | Routin | 04/06/2008 | | Results for this | | | e | 8:00 AM | | procedure are in the | | | | PDT | | results section. | + +--------+ + + + | RESP CARE THERAPY | Routin | 04/06/2008 | | Results for this | | | e | 6:00 AM | | procedure are in the | | | | PDT | | results section. | + +--------+ + + + | RESP CARE THERAPY | Routin | 04/05/2008 | | Results for this | | | e | 9:15 PM | | procedure are in the | | | | PDT | | results section. | + +--------+ + + + | RESP CARE THERAPY | Routin | 04/05/2008 | | Results for this | | | e | 9:00 AM | | procedure are in the | | | | PDT | | results section. | + +--------+ + + + | RESP CARE THERAPY | Routin | 04/04/2008 | | Results for this | | | e | 8:40 PM | | procedure are in the | | | | PDT | | results section. | + +--------+ + + + | OCCULT BLOOD FECAL, | Perman | 04/04/2008 | | Results for this | | POC RESULT | ent/Fr | 10:15 AM | | procedure are in the | | | esh | PDT | | results section. | + +--------+ + + + | RESP CARE THERAPY | Routin | 04/04/2008 | | Results for this | | | e | 9:37 AM | | procedure are in the | | | | PDT | | results section. | + +--------+ + + + | RESP CARE THERAPY | Routin | 04/04/2008 | | Results for this | | | e | 6:00 AM | | procedure are in the | | | | PDT | | results section. | + +--------+ + + + | BASIC METABOLIC SET | Urgent | 04/04/2008 | | Results for this | | (NA, K, CL, TCO2, | | 5:01 AM | | procedure are in the | | BUN, CR, GLU, CA) | | PDT | | results section. | + +--------+ + + + | CBC ONLY | Urgent | 04/04/2008 | | Results for this | | | | 5:01 AM | | procedure are in the | | | | PDT | | results section. | + +--------+ + + + | RESP CARE THERAPY | Routin | 04/03/2008 | | Results for this | | | e | 8:20 PM | | procedure are in the | | | | PDT | | results section. | + +--------+ + + + | VRE BY PCR, RECTAL | Urgent | 04/03/2008 | | Results for this | | SWAB | | 10:46 AM | | procedure are in the | | | | PDT | | results section. | + +--------+ + + + | RESP CARE THERAPY | Routin | 04/03/2008 | | Results for this | | | e | 9:20 AM | | procedure are in the | | | | PDT | | results section. | + +--------+ + + + | BASIC METABOLIC SET | Urgent | 04/03/2008 | | Results for this | | (NA, K, CL, TCO2, | | 5:01 AM | | procedure are in the | | BUN, CR, GLU, CA) | | PDT | | results section. | + +--------+ + + + | CBC ONLY | Urgent | 04/03/2008 | | Results for this | | | | 5:01 AM | | procedure are in the | | | | PDT | | results section. | + +--------+ + + + | RESP CARE THERAPY | Routin | 04/02/2008 | | Results for this | | | e | 8:33 PM | | procedure are in the | | | | PDT | | results section. | + +--------+ + + + | RESP CARE THERAPY | Routin | 04/02/2008 | | Results for this | | | e | 12:40 PM | | procedure are in the | | | | PDT | | results section. | + +--------+ + + + | RESP CARE THERAPY | Routin | 04/02/2008 | | Results for this | | | e | 10:00 AM | | procedure are in the | | | | PDT | | results section. | + +--------+ + + + | 12 LEAD ECG | Urgent | 04/02/2008 | | Results for this | | | | 9:18 AM | | procedure are in the | | | | PDT | | results section. | + +--------+ + + + | X-RAY CHEST FEED | Urgent | 04/02/2008 | | Results for this | | TUBE EVAL | | 9:08 AM | | procedure are in the | | | | PDT | | results section. | + +--------+ + + + | CT PELVIS W IV | Routin | 04/02/2008 | | Results for this | | CONTRAST | e | 12:57 AM | | procedure are in the | | | | PDT | | results section. | + +--------+ + + + | CT ABDOMEN W IV | Urgent | 04/02/2008 | | Results for this | | CONTRAST | | 12:57 AM | | procedure are in the | | | | PDT | | results section. | + +--------+ + + + | LACTATE | Urgent | 04/02/2008 | | Results for this | | | | 12:16 AM | | procedure are in the | | | | PDT | | results section. | + +--------+ + + + | ORDERS OTHER | | 04/02/2008 | | Results for this | | | | 12:00 AM | | procedure are in the | | | | PDT | | results section. | + +--------+ + + + | X-RAY ABDOMEN 2 | Urgent | 04/01/2008 | | Results for this | | VIEWS | | 11:37 PM | | procedure are in the | | | | PDT | | results section. | + +--------+ + + + | DIFFERENTIAL | Urgent | 04/01/2008 | | Results for this | | | | 10:29 PM | | procedure are in the | | | | PDT | | results section. | + +--------+ + + + | CBC, WITH | Urgent | 04/01/2008 | | Results for this | | DIFFERENTIAL | | 10:29 PM | | procedure are in the | | | | PDT | | results section. | + +--------+ + + + | COMPLETE METABOLIC | Urgent | 04/01/2008 | | Results for this | | SET | | 10:29 PM | | procedure are in the | | (NA,K,CL,CO2,BUN,CRE | | PDT | | results section. | | AT,GLUC,CA,AST,ALT,B | | | | | | DANICA TOTAL,ALK | | | | | | PHOS,ALB,PROT TOTAL) | | | | | + +--------+ + + + | LIPASE, PLASMA | Urgent | 04/01/2008 | | Results for this | | | | 10:29 PM | | procedure are in the | | | | PDT | | results section. | + +--------+ + + + documented in this encounter Results ORDERS OTHER (04/06/2008 12:17 PM PDT) + + + | Narrative | Performed At | + + + | | | + + + + + | Procedure Note | + + | [facility] Faculty - 04/06/2008 12:17 PM PDT | + + RADIOLOGY (04/06/2008 12:17 PM PDT) + + + | Narrative | Performed At | + + + | | | + + + + + | Procedure Note | + + | Other, Faculty - 04/06/2008 12:17 PM PDT | + + RESP CARE THERAPY (04/06/2008 8:00 AM PDT) + + + + + + | Component | Value | Ref Range | Performed | Pathologist | | | | | At | Signature | + + + + + + | RESPIRATORY | Pain Assessment:Patients | | [facility] | | | CARE | pain assessed and was a | | RESPIRATORY | | | | 0 on a scale of | | THERAPY | | | | 0-10.Interventions:Medic | | | | | | ation given via inhaler | | | | | | with Spiriva 1 puffs . | | | | | | Total combined | | | | | | puffsgiven: 1 puffs. | | | | | | Medication given via SVN | | | | | | with Pulmicort .25 | | | | | | mgAssessment:Breath | | | | | | Sounds: clear | | | | | | .Cough/Sputum: Patient | | | | | | had a non-productive | | | | | | cough.Outcome after | | | | | | therapy: There was | | | | | | minimal improvement in | | | | | | BS or work ofbreathing | | | | | | after therapy.Treatment | | | | | | Plan:No changes in | | | | | | therapy are | | | | | | indicated.Electronically | | | | | | Signed by: Saúl Choe, | | | | | | PROFESSOR OF GEOGRAPHY | | | | + + + + + + + + | Specimen | + + | | + + + + + | Narrative | Performed At | + + + | Ordered by an unspecified provider. | [facility] | | | RESPIRATORY | | | THERAPY | + + + + + + + + | Performing | Address | City/State/Zipcode | Phone Number | | Organization | | | | + + + + + | [facility] | [address] | [place], [place] | | | THERAPY | [facility] | [phone] | | + + + + + | [facility] | [address] | [place], [place] | | | THERAPY | [facility] | [phone] | | + + + + + RESP CARE THERAPY (04/06/2008 6:00 AM PDT) + + + + + + | Component | Value | Ref Range | Performed | Pathologist | | | | | At | Signature | + + + + + + | RESPIRATORY | Order _ Neb/IPPB/Cneb/ | | [facility] | | | CARE | Exchange therapy | | RESPIRATORY | | | | omitted.Reason : | | THERAPY | | | | Aerosol supply exchange | | | | | | complete. - Time | | | | | | due:Electronically | | | | | | Signed by: Lindsay Hector, | | | | | | PROFESSOR OF GEOGRAPHY | | | | + + + + + + + + | Specimen | + + | | + + + + + | Narrative | Performed At | + + + | Ordered by an unspecified provider. | [facility] | | | RESPIRATORY | | | THERAPY | + + + + + + + + | Performing | Address | City/State/Zipcode | Phone Number | | Organization | | | | + + + + + | [facility] | [address] [address] [facility] | [place], [place] | | | THERAPY | [facility] | [phone] | | + + + + + | [facility] | [address] [facility] | [place], [place] | | | THERAPY | [facility] | [phone] | | + + + + + RESP CARE THERAPY (04/05/2008 9:15 PM PDT) + + + + + + | Component | Value | Ref Range | Performed | Pathologist | | | | | At | Signature | + + + + + + | RESPIRATORY | Pain Assessment:Patients | | [facility] | | | CARE | pain assessed and was a | | RESPIRATORY | | | | 0 on a scale of | | THERAPY | | | | 0-10.Interventions:Medic | | | | | | ation given via SVN with | | | | | | Pulmicort .25 | | | | | | mgAssessment:Breath | | | | | | Sounds: clear | | | | | | .Cough/Sputum: Patient | | | | | | had a non-productive | | | | | | cough.Outcome after | | | | | | therapy: There was no | | | | | | improvement in BS or | | | | | | work of breathingafter | | | | | | therapy.Treatment | | | | | | Plan:Non protocol | | | | | | patient.Electronically | | | | | | Signed by: Lindsay Hector, | | | | | | PROFESSOR OF GEOGRAPHY | | | | + + + + + + + + | Specimen | + + | | + + + + + | Narrative | Performed At | + + + | Ordered by an unspecified provider. | [facility] | | | RESPIRATORY | | | THERAPY | + + + + + + + + | Performing | Address | City/State/Zipcode | Phone Number | | Organization | | | | + + + + + | [facility] | [address] | [place], [place] | | | THERAPY | [address] | [address] | | + + + + + | [facility] | [address] | [place], [place] | | | THERAPY | [facility] | [address] | | + + + + + RESP CARE THERAPY (04/05/2008 9:00 AM PDT) + + + + + + | Component | Value | Ref Range | Performed | Pathologist | | | | | At | Signature | + + + + + + | RESPIRATORY | Pain Assessment:Patients | | [facility] | | | CARE | pain assessed and was a | | RESPIRATORY | | | | 0 on a scale of | | THERAPY | | | | 0-10.Interventions:Medic | | | | | | ation given via inhaler | | | | | | with Spiriva 1 puffs . | | | | | | Total combined | | | | | | puffsgiven: 1 puffs. | | | | | | Medication given via SVN | | | | | | with Pulmicort .25 | | | | | | mgAssessment:Breath | | | | | | Sounds: diminished and | | | | | | clear .Cough/Sputum: | | | | | | Patient had no cough at | | | | | | this time.Outcome after | | | | | | therapy: There was | | | | | | minimal improvement in | | | | | | BS or work ofbreathing | | | | | | after therapy.Treatment | | | | | | Plan:No changes in | | | | | | therapy are | | | | | | indicated.Electronically | | | | | | Signed by: Darius | | | | | | DAVID Elliott | | | | + + + + + + + + | Specimen | + + | | + + + + + | Narrative | Performed At | + + + | Ordered by an unspecified provider. | [facility] | | | RESPIRATORY | | | THERAPY | + + + + + + + + | Performing | Address | City/State/Zipcode | Phone Number | | Organization | | | | + + + + + | [facility] | [address] [facility] | [place], [place] | | | THERAPY | [address] | [address] | | + + + + + | [facility] | [address] [facility] | [place], [place] | | | THERAPY | [address] | [address] | | + + + + + RESP CARE THERAPY (04/04/2008 8:40 PM PDT) + + + + + + | Component | Value | Ref Range | Performed | Pathologist | | | | | At | Signature | + + + + + + | RESPIRATORY | Pain Assessment:Patients | | [facility] | | | CARE | pain assessed and was a | | RESPIRATORY | | | | 0 on a scale of | | THERAPY | | | | 0-10.Interventions:Medic | | | | | | ation given via SVN with | | | | | | Pulmicort .25 | | | | | | mgAssessment:Breath | | | | | | Sounds: clear | | | | | | .Cough/Sputum: Patient | | | | | | had no cough at this | | | | | | time.Outcome after | | | | | | therapy: There was | | | | | | minimal improvement in | | | | | | BS or work ofbreathing | | | | | | after therapy.Treatment | | | | | | Plan:Non protocol | | | | | | patient.Electronically | | | | | | Signed by: Makenzie | | | | | | Gonzalo PROFESSOR OF GEOGRAPHY | | | | + + + + + + + + | Specimen | + + | | + + + + + | Narrative | Performed At | + + + | Ordered by an unspecified provider. | [facility] | | | RESPIRATORY | | | THERAPY | + + + + + + + + | Performing | Address | City/[facility]/Zipcode | Phone Number | | Organization | | | | + + + + + | [facility] | [address] | [place], [place] | | | THERAPY | [address] | [address] | | + + + + + | [facility] | [address] | [place], [place] | | | THERAPY | [address] | [address] | | + + + + + OCCULT BLOOD FECAL, POC RESULT (04/04/2008 10:15 AM PDT) + +-------+ + + + | Component | Value | Ref Range | Performed | Pathologist | | | | | At | Signature | + +-------+ + + + | OCCULT | neg | | | | | BLOOD, | | | | | | FECES, | | | | | | SCREEN | | | | | + +-------+ + + + RESP CARE THERAPY (04/04/2008 9:37 AM PDT) + + + + + + | Component | Value | Ref Range | Performed | Pathologist | | | | | At | Signature | + + + + + + | RESPIRATORY | Pain Assessment:Patients | | [facility] | | | CARE | pain assessed and was a | | RESPIRATORY | | | | 0 on a scale of | | THERAPY | | | | 0-10.Interventions:Medic | | | | | | ation given via inhaler | | | | | | with Spiriva 1 puffs . | | | | | | Total combined | | | | | | puffsgiven: 11 puffs. | | | | | | Medication given via SVN | | | | | | withAssessment:Breath | | | | | | Sounds: clear | | | | | | .Cough/Sputum: Patient | | | | | | had no cough at this | | | | | | time.Outcome after | | | | | | therapy: There was no | | | | | | improvement in BS or | | | | | | work of breathingafter | | | | | | therapy.Treatment | | | | | | Plan:No changes in | | | | | | therapy are | | | | | | indicated.Electronically | | | | | | Signed by: Saud | | | | | | Irene, | | | | + + + + + + + + | Specimen | + + | | + + + + + | Narrative | Performed At | + + + | Ordered by an unspecified provider. | [facility] | | | RESPIRATORY | | | THERAPY | + + + + + + + + | Performing | Address | City/State/Zipcode | Phone Number | | Organization | | | | + + + + + | [facility] | [address] [facility] | [place], [place] | | | THERAPY | [facility] | [address] | | + + + + + | [facility] | [address] [facility] | [place], [place] | | | THERAPY | [facility] | [address] | | + + + + + RESP CARE THERAPY (04/04/2008 6:00 AM PDT) + + + + + + | Component | Value | Ref Range | Performed | Pathologist | | | | | At | Signature | + + + + + + | RESPIRATORY | Order _ Maddy/CAROLIN/Christoph/ | | [facility] | | | CARE | Exchange therapy | | RESPIRATORY | | | | omitted.Reason : | | THERAPY | | | | Nebulizer supply | | | | | | exchange complete. - | | | | | | Time due:Electronically | | | | | | Signed by: Trisha | | | | | | Ronak RT | | | | + + + + + + + + | Specimen | + + | | + + + + + | Narrative | Performed At | + + + | Ordered by an unspecified provider. | [facility] | | | RESPIRATORY | | | THERAPY | + + + + + + + + | Performing | Address | City/State/Zipcode | Phone Number | | Organization | | | | + + + + + | [facility] | [address] | [place], [place] | | | THERAPY | [address] | [address] | | + + + + + | [facility] | [address] | [place], [place] | | | THERAPY | [address] | [address] | | + + + + + CBC ONLY (04/04/2008 5:01 AM PDT) + + + + + [...] | RED CELL | See cmnt | 4.00 - 5.20 | [facility] | | | COUNT | | M/cu mm | DEPARTMENT | | | | | | OF | | | | | | PATHOLOGY | | + + + + + + | HEMOGLOBIN | See cmnt | 12.0 - 16.0 | [facility] | | | | | g/dL | DEPARTMENT | | | | | | OF | | | | | | PATHOLOGY | | + + + + + + | HEMATOCRIT | See cmnt | 36.0 - 46.0 % | [facility] [...] Performed At | + + + | Patient/Family refused blood draw. | [facility] | | | DEPARTMENT OF | | | PATHOLOGY | + + + + + + + + | Performing | Address | City/State/Zipcode | Phone Number | | Organization | | | | + + + + + | [facility] | [address] [facility] | [place] [address] | | | PATHOLOGY | [address] | | | + + + + + | [facility] | [address] [facility] | [place] [address] | | | PATHOLOGY | [address] | | | + + + + + BASIC METABOLIC SET (NA, K, CL, TCO2, BUN, CR, GLU, CA) (04/04/2008 5:01 AM PDT) + + + + + + | Component | Value | Ref Range | Performed | Pathologist | | | | | At | Signature | + + + + + + | GLUCOSE, | See cmnt | 60 - 99 mg/dL | [facility] [...] + | CREATININE | See cmnt | 0.60 - 1.10 | [facility] | | | PLASMA | | mg/dL | DEPARTMENT | | | (LAB) | | | OF | | | | | | PATHOLOGY | | + + + + + + | SODIUM, | See cmnt | 134 - 143 | [facility] | | | PLASMA | | mmol/L | DEPARTMENT | | | (LAB) | | | OF | | | | | | PATHOLOGY | | + + + + + + | POTASSIUM, | See cmnt | 3.4 - 5.0 | [facility] | | | PLASMA | | mmol/L | DEPARTMENT | | | (LAB) | | | OF | | | | | | PATHOLOGY | | + + + + + + | CHLORIDE, | See cmnt | 97 - 108 mmol/L | [facility] | | | PLASMA | | | DEPARTMENT | | | (LAB) | | | OF | | | | | | PATHOLOGY | | + + + + + + | TOTAL CO2, | See cmnt | 23 - 31 mmol/L | [facility] | | | PLASMA | | | DEPARTMENT | | | (LAB) | | | OF | | | | | | PATHOLOGY | | + + + + + + | CALCIUM, | See cmnt | 8.6 - 10.2 | [facility] | [...] Performed At | + + + | New Creatinine Reference ranges effective 08. | [facility] | | Patient/Family refused blood draw. | DEPARTMENT OF | | | PATHOLOGY | + + + + + + + + | Performing | Address | City/State/Zipcode | Phone Number | | Organization | | | | + + + + + | [facility] | [address] [facility] | [place] [address] | | | PATHOLOGY | [address] | | | + + + + + | [facility] | [address] [facility] | [place] [address] | | | PATHOLOGY | [address] | | | + + + + + RESP CARE THERAPY (04/03/2008 8:20 PM PDT) + + + + + + | Component | Value | Ref Range | Performed | Pathologist | | | | | At | Signature | + + + + + + | RESPIRATORY | Pain Assessment:Patients | | [facility] | | | CARE | pain assessed and was a | | RESPIRATORY | | | | 1 on a scale of | | THERAPY | | | | 0-10.Interventions:Medic | | | | | | ation given via SVN with | | | | | | Pulmicort 0.25 | | | | | | mgAssessment:Breath | | | | | | Sounds: diminished in | | | | | | the bases .Cough/Sputum: | | | | | | Patient had a | | | | | | non-productive | | | | | | cough.Outcome after | | | | | | therapy: There was | | | | | | minimal improvement in | | | | | | BS or work ofbreathing | | | | | | after therapy.Treatment | | | | | | Plan:No changes in | | | | | | therapy are | | | | | | indicated.Electronically | | | | | | Signed by: Trisha | | | | | | RT Ronak | | | | + + + + + + + + | Specimen | + + | | + + + + + | Narrative | Performed At | + + + | Ordered by an unspecified provider. | [facility] | | | RESPIRATORY | | | THERAPY | + + + + + + + + | Performing | Address | City/State/Zipcode | Phone Number | | Organization | | | | + + + + + | [facility] | [address] [facility] | [place], [place] | | | THERAPY | [address] | [address] | | + + + + + | [facility] | [address] | [place], [place] | | | THERAPY | [address] | [address] | | + + + + + VRE BY PCR, RECTAL SWAB (04/03/2008 10:46 AM PDT) + + + + + + | Component | Value | Ref Range | Performed | Pathologist | | | | | At | Signature | + + + + + + | VRE BY PCR | As per your request, we | | | | | | have completed a | | | | | | polymerase chain | | | | | | reaction (PCR)based | | | | | | study to determine the | | | | | | presence of Milvia or | | | | | | vanBvancomycin-resistanc | | | | | | e genes in this sample. | | | | | | For this assay, the | | | | | | bacterialDNA is prepared | | | | | | and stabilized in a | | | | | | lysis buffer and is then | | | | | | subjected tomultiplex | | | | | | PCR amplification with | | | | | | primers specific for the | | | | | | Milvia or vanBgenes. Milvia | | | | | | or vanB-specific | | | | | | sequences are detected | | | | | | using | | | | | | flourescently-labeled | | | | | | hybridization probes in | | | | | | a real-time PCR | | | | | | instrument. The | | | | | | clinicalinterpretation | | | | | | of the patient and | | | | | | control data is detailed | | | | | | below. Neither Milvia nor | | | | | | vanB gene sequences | | | | | | were detectable by the | | | | | | PCR-basedassay | | | | | | suggesting either the | | | | | | absence of bacterial | | | | | | species | | | | | | harboringvancomycin-resi | | | | | | stance (typically | | | | | | enterococci) or the | | | | | | presence of | | | | | | very-lowlevels of these | | | | | | bacteria, below the | | | | | | low-level detection | | | | | | limit of ourassay. The | | | | | | absence of detectable | | | | | | vancomycin-resistance | | | | | | genes is not theresult | | | | | | of an inability to | | | | | | PCR-amplify the DNA from | | | | | | this sample (perhapsdue | | | | | | to a stool-based | | | | | | inhibitor), as a spiked | | | | | | internal control DNA | | | | | | wassuccessfully | | | | | | amplified. | | | | + + + + + + | VRE-PCR | UNDETECT | | | | | RESULT | | | | | + + + + + + | DNA FOOTER | This test was developed | | | | | | and its performance | | | | | | characteristics | | | | | | determined by[facility] | | | | | | [facility] Diagnostic | | | | | | Laboratory. It has not | | | | | | been cleared or | | | | | | approvedby the Food and | | | | | | Drug Administration. | | | | | | FDA approval is not | | | | | | required forclinical use | | | | | | of the test, and | | | | | | therefore validation was | | | | | | done as requiredunder | | | | | | the requirements of the | | | | | | Clinical Laboratory | | | | | | Improvement Act kr2023. | | | | | | The [facility] | | | | | | Diagnostic Laboratory is | | | | | | a fully licensed | | | | | | and/oraccredited | | | | | | clinical laboratory | | | | | | under CLIA, CAP, and the | | | | | | State of [place]. | | | | + + + + + + | SPECIMEN | Rectal Swab | | | | | TYPE | | | | | | SUBMITTED | | | | | + + + + + + + + | Specimen | + + | Swab - Stool | + + + + + + + | Performing | Address | City/State/Zipcode | Phone Number | | Organization | | | | + + + + + | [facility] | [place] [address] | [place] [address] | | | [facility] | [address] | | | | | [address] | | | + + + + + RESP CARE THERAPY (04/03/2008 9:20 AM PDT) + + + + + + | Component | Value | Ref Range | Performed | Pathologist | | | | | At | Signature | + + + + + + | RESPIRATORY | Pain Assessment:Patients | | [facility] | | | CARE | pain assessed and was a | | RESPIRATORY | | | | 2 on a scale of | | THERAPY | | | | 0-10.Interventions:Medic | | | | | | ation given via SVN with | | | | | | Levalbuterol .63 mg | | | | | | Medication given via | | | | | | inhaler with Spiriva 1 | | | | | | puffs . Total combined | | | | | | puffsgiven: 1 | | | | | | puffs.Assessment:Breath | | | | | | Sounds: diminished | | | | | | .Cough/Sputum: Patient | | | | | | had a non-productive | | | | | | cough.Outcome after | | | | | | therapy: Patient's work | | | | | | of breathing decreased | | | | | | after therapy.Treatment | | | | | | Plan:Non protocol | | | | | | patient.Medication | | | | | | teaching provided. 2 30 | | | | | | minutes of education for | | | | | | medication ormedication | | | | | | delivery | | | | | | provided.Electronically | | | | | | Signed by: Tee | | | | | | DAVID Lopez | | | | + + + + + + + + | Specimen | + + | | + + + + + | Narrative | Performed At | + + + | Ordered by an unspecified provider. | [facility] | | | RESPIRATORY | | | THERAPY | + + + + + + + + | Performing | Address | City/State/Zipcode | Phone Number | | Organization | | | | + + + + + | [facility] | [address] | [place], [place] | | | THERAPY | [address] | [address] | | + + + + + | [facility] | [address] | [place], [place] | | | THERAPY | [address] | [address] | | + + + + + CBC ONLY (04/03/2008 5:01 AM PDT) + + + + + + | Component | Value | Ref Range | Performed | Pathologist | | | | | At | Signature | + + + + + + | WHITE CELL | Not Recd | 4.4 - 11.0 K/cu | [facility] | | | COUNT | | mm | DEPARTMENT | | | | | | OF | | | | | | PATHOLOGY | | + + + + + + | RED CELL | Not Recd | 4.00 - 5.20 | [facility] | | | COUNT | | M/cu mm | DEPARTMENT | | | | | | OF | | | | | | PATHOLOGY | | + + + + + + | HEMOGLOBIN | Not Recd | 12.0 - 16.0 | [facility] | | | | | g/dL | DEPARTMENT | | | | | | OF | | | | | | PATHOLOGY | | + + + + + + | HEMATOCRIT | Not Recd | 36.0 - 46.0 % | [facility] | | | | | | DEPARTMENT | | | | | | OF | | | | | | PATHOLOGY | | + + + + + + | MCV | Not Recd | 80.0 - 96.0 fL | [facility] | | | | | | DEPARTMENT | | | | | | OF | | | | | | PATHOLOGY | | + + + + + + | MCHC | Not Recd | 33.4 - 35.5 | [facility] | | | | | g/dL | DEPARTMENT | | | | | | OF | | | | | | PATHOLOGY | | + + + + + + | RDW | Not Recd | 11.5 - 15.0 % | [facility] | | | | | | DEPARTMENT | | | | | | OF | | | | | | PATHOLOGY | | + + + + + + | PLATELET | Not Recd | 150 - 400 K/cu | [facility] [...] + + + + + | [facility] DE[facility] | [address] [facility] | [place] [address] | | | PATHOLOGY | [address] | | | + + + + + | [facility] DEPARTMENT OF | [address] [facility] | [place] [address] | | | PATHOLOGY | [address] | | | + + + + + BASIC METABOLIC SET (NA, K, CL, TCO2, BUN, CR, GLU, CA) (04/03/2008 5:01 AM PDT) + + + + + + | Component | Value | Ref Range | Performed | Pathologist | | | | | At | Signature | + + + + + + | GLUCOSE, | Not Recd | 60 - 99 mg/dL | [facility] | | | PLASMA | | | DEPARTMENT | | | (LAB) | | | OF | | | | | | PATHOLOGY | | + + + + + + | BUN, PLASMA | Not Recd | 6 - 20 mg/dL | [facility] | | | (LAB) | | | DEPARTMENT | | | | | | OF | | | | | | PATHOLOGY | | + + + + + + | CREATININE | Not Recd | 0.60 - 1.10 | [facility] | | | PLASMA | | mg/dL | DEPARTMENT | | | (LAB) | | | OF | | | | | | PATHOLOGY | | + + + + + + | SODIUM, | Not Recd | 134 - 143 | [facility] | | | PLASMA | | mmol/L | DEPARTMENT | | | (LAB) | | | OF | | | | | | PATHOLOGY | | + + + + + + | POTASSIUM, | Not Recd | 3.4 - 5.0 | [facility] | | | PLASMA | | mmol/L | DEPARTMENT | | | (LAB) | | | OF | | | | | | PATHOLOGY | | + + + + + + | CHLORIDE, | Not Recd | 97 - 108 mmol/L | [facility] | | | PLASMA | | | DEPARTMENT | | | (LAB) | | | OF | | | | | | PATHOLOGY | | + + + + + + | TOTAL CO2, | Not Recd | 23 - 31 mmol/L | [facility] | | | PLASMA | | | DEPARTMENT | | | (LAB) | | | OF | | | | | | PATHOLOGY | | + + + + + + | CALCIUM, | Not Recd | 8.6 - 10.2 | [facility] | [...] Performed At | + + + | New Creatinine Reference ranges effective 08. | [facility] | | | DEPARTMENT OF | | | PATHOLOGY | + + + + + + + + | Performing | Address | City/State/Zipcode | Phone Number | | Organization | | | | + + + + + | [facility] DEPARTMENT OF | [facility] | [place] [address] | | | PATHOLOGY | [address] | | | + + + + + | [facility] DEPARTMENT OF | [facility] | [place] [address] | | | PATHOLOGY | [address] | | | + + + + + RESP CARE THERAPY (04/02/2008 8:33 PM PDT) + + + + + + | Component | Value | Ref Range | Performed | Pathologist | | | | | At | Signature | + + + + + + | RESPIRATORY | Pain Assessment:Patients | | [facility] | | | CARE | pain assessed and was a | | RESPIRATORY | | | | 3 on a scale of | | THERAPY | | | | 0-10.Interventions:Medic | | | | | | ation given via SVN with | | | | | | Pulmicort 0.25 | | | | | | mgAssessment:Breath | | | | | | Sounds: clear | | | | | | .Cough/Sputum: Patient | | | | | | had a non-productive | | | | | | cough.Outcome after | | | | | | therapy: There was no | | | | | | improvement in BS or | | | | | | work of breathingafter | | | | | | therapy.Treatment | | | | | | Plan:Non protocol | | | | | | patient.Electronically | | | | | | Signed by: Allison | | | | | | [place], | | | | + + + + + + + + | Specimen | + + | | + + + + + | Narrative | Performed At | + + + | Ordered by an unspecified provider. | [facility] | | | RESPIRATORY | | | THERAPY | + + + + + + + + | Performing | Address | City/State/Zipcode | Phone Number | | Organization | | | | + + + + + | [facility] | [address] | [place], [place] | | | THERAPY | [address] | [address] | | + + + + + | [facility] | [address] | [place], [place] | | | THERAPY | [facility] | [address] | | + + + + + RESP CARE THERAPY (04/02/2008 12:40 PM PDT) + + + + + + | Component | Value | Ref Range | Performed | Pathologist | | | | | At | Signature | + + + + + + | RESPIRATORY | Pain Assessment:Patients | | [facility] | | | CARE | pain assessed and was a | | RESPIRATORY | | | | 0 on a scale of | | THERAPY | | | | 0-10.Interventions:Medic | | | | | | ation given via SVN with | | | | | | Pulmicort .25 mg | | | | | | Medication given via | | | | | | inhaler with Spiriva 1 | | | | | | puffs . Total combined | | | | | | puffsgiven: 1 | | | | | | puffs.Assessment:Breath | | | | | | Sounds: , .Cough/Sputum: | | | | | | Patient had no cough at | | | | | | this time.Outcome after | | | | | | therapy: There was | | | | | | minimal improvement in | | | | | | BS or work ofbreathing | | | | | | after therapy.Treatment | | | | | | Plan:Non protocol | | | | | | patient.Electronically | | | | | | Signed by: Nestor | | | | | | DAVID Thrasher | | | | + + + + + + + + | Specimen | + + | | + + + + + | Narrative | Performed At | + + + | Ordered by an unspecified provider. | [facility] | | | RESPIRATORY | | | THERAPY | + + + + + + + + | Performing | Address | City/State/Zipcode | Phone Number | | Organization | | | | + + + + + | [facility] | [address] | [place], [place] | | | THERAPY | [address] | [address] | | + + + + + | [facility] | [address] | [place], [place] | | | THERAPY | [facility] | [address] | | + + + + + RESP CARE THERAPY (04/02/2008 10:00 AM PDT) + + + + + + | Component | Value | Ref Range | Performed | Pathologist | | | | | At | Signature | + + + + + + | RESPIRATORY | : History and | | [facility] | | | CARE | Assessment: Abdominal | | RESPIRATORY | | | | PainPulmonary problems: | | THERAPY | | | | Current problems | | | | | | include, 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 No | | | | | | CXR has been takenwithin | | | | | | the last 72 hours.Pain: | | | | | | Patients pain assessed | | | | | | and was a 3 on a scale | | | | | | of 0-10.Oxygen | | | | | | requirement: Patient was | | | | | | on room air with an | | | | | | oxygen saturation of | | | | | | 98%.Heart rate: 83 beats | | | | | | per minuteRespiratory | | | | | | rate: 16 breaths per | | | | | | minuteTemperature: 37.1 | | | | | | ? C.Breathsounds:clear | | | | | | .Cough and sputum | | | | | | production:Patient had | | | | | | no cough at this | | | | | | time.Treatments GivenNo | | | | | | therapy indicated at | | | | | | this time.Respiratory | | | | | | Acuity and Protocol | | | | | | PlanA respiratory | | | | | | evaluation has been | | | | | | completed. Based on this | | | | | | assesmentInhaled | | | | | | medication will be | | | | | | delivered by RTaccording | | | | | | to the patient's | | | | | | homeregimen under the | | | | | | bronchodilator | | | | | | protocol.Electronically | | | | | | Signed by: Nestor | | | | | | DAVID Thrasher | | | | + + + + + + + + | Specimen | + + | | + + + + + | Narrative | Performed At | + + + | Ordered by an unspecified provider. | [facility] | | | [facility] | | | THERAPY | + + + + + + + + | Performing | Address | City/State/Zipcode | Phone Number | | Organization | | | | + + + + + | [facility] | [address] | [place], [place] | | | THERAPY | [address] | [address] | | + + + + + | [facility] | [address] | [place], [place] | | | THERAPY | [address] | [address] | | + + + + + 12 LEAD ECG (04/02/2008 9:18 AM PDT) + + + + + + | Component | Value | Ref Range | Performed | Pathologist | | | | | At | Signature | + + + + + + | VENTRICULAR | 66 | BPM | [facility] | | | RATE | | | OF | | | | | | CARDIOLOGY | | + + + + + + | ATRIAL RATE | 66 | BPM | [facility] | | | | | | OF | | | | | | CARDIOLOGY | | + + + + + + | P-R | 154 | ms | [facility] | | | INTERVAL | | | OF | | | | | | CARDIOLOGY | | + + + + + + | QRS | 84 | ms | [facility] | | | DURATION | | | OF | | | | | | CARDIOLOGY | | + + + + + + | QT | 474 | ms | [facility] | | | | | | OF | | | | | | CARDIOLOGY | | + + + + + + | QTC | 497 | ms | [facility] | | | | | | OF | | | | | | CARDIOLOGY | | + + + + + + | P AXIS | 72 | degrees | [facility] | | | | | | OF | | | | | | CARDIOLOGY | | + + + + + + | R AXIS | 68 | degrees | [facility] | | | | | | OF | | | | | | CARDIOLOGY | | + + + + + + | T AXIS | 29 | degrees | [facility] | | | | | | OF | | | | | | CARDIOLOGY | | + + + + + + | EKG | Normal sinus | | [facility] | | | DIAGNOSIS | rhythmProlonged | | OF | | | | QTAbnormal ECG"I have | | CARDIOLOGY | | | | personally interpreted | | | | | | this report, either | | | | | | alone or with a | | | | | | trainee."Confirmed by | | | | | | JAMES HOLT ([id number]) on | | | | | | 03-Apr-2008 18:51:17 | | | | + + + + + + | LINK TO | | | [facility] | | | [facility] | [...] view image for the detailed interpretation from [employer] results. | CARDIOLOGY | | | | + + + + + + + + | Performing | Address | City/State/Zipcode | Phone Number | | Organization | | | | + + + + + | [facility] | [address] [facility] [facility] | [place], [place] | | | CARDIOLOGY | [address] [facility] | [phone] | | + + + + + | [facility] | [address] [facility] | [place], [place] | | | CARDIOLOGY | [address] | [phone] | | + + + + + X-RAY CHEST FEED TUBE EVAL (04/02/2008 9:08 AM PDT) + + + + + + | Component | Value | Ref Range | Performed | Pathologist | | | | | At | Signature | + + + + + + | CHEST FEED | AP chestComparison: | | | | | TUBE EVAL | 04/19/07Findings:Enteric | | | | | XRAY | tube is in place with | | | | | | its tip at the | | | | | | gastroesophagealjunction | | | | | | . Cardiac and | | | | | | mediastinal contours are | | | | | | normal. | | | | | | Airwaythickening is | | | | | | present at the lung | | | | | | bases, lungs are | | | | | | otherwise clear.No | | | | | | pneumothorax or pleural | | | | | | effusion. | | | | | | Cholecystostomy clips | | | | | | in theright upper | | | | | | quadrant.Impression:1. | | | | | | Enteric tube tip at | | | | | | the gastroesophageal | | | | | | junction.I have | | | | | | personally viewed this | | | | | | procedure/exam and | | | | | | reviewed this | | | | | | report.STATUS FINAL / | | | | | | Dr. CLAUDIA KLEIN | | | | | | PENDING FINAL APPROVAL / | | | | | | Dr. DONNA ALDRIDGE | | | | | | PRELIMINARY - UNSIGNED / | | | | | | Dr. DONNA KELLY | | | | + + + + + + + + | Specimen | + + | | + + + +---------+ + + | Performing | Address | City/State/Zipcode | Phone Number | | Organization | | | | + +---------+ + + | [facility] DEPARTMENT OF | | | | | RADIOLOGY | | | | + +---------+ + + CT PELVIS W CONTRAST (04/02/2008 12:57 AM PDT) + + + + + + | Component | Value | Ref Range | Performed | Pathologist | | | | | At | Signature | + + + + + + | CT PELVIS W | CT abdomen pelvis | | | | | CONTRAST | 04/02/08Comparison is | | | | | | made with CT dated | | | | | | 06/22/08History: Rule out | | | | | | small bowel | | | | | | obstruction, history of | | | | | | multiple priorabdominal | | | | | | surgeriesTechnique: | | | | | | Following the uneventful | | | | | | administration of oral | | | | | | and IVcontrast | | | | | | (Omnipaque 145 cc) | | | | | | helical imaging is | | | | | | performed in axialimages | | | | | | through the abdomen and | | | | | | pelvis are | | | | | | generated.Abdomen | | | | | | findingsThe lung bases | | | | | | are clear. There is no | | | | | | pleural or | | | | | | pericardialeffusion. | | | | | | The visualized cardiac | | | | | | and mediastinal | | | | | | structures appearwithin | | | | | | normal limits.As before | | | | | | numerous simple hepatic | | | | | | cysts are appreciated | | | | | | the largestof which is | | | | | | noted in the lateral | | | | | | segment left lobe of | | | | | | liver whichmeasures 2.2 | | | | | | cm in transverse | | | | | | diameter. Prior | | | | | | cholecystectomy hasbeen | | | | | | performed. The common | | | | | | duct is dilated to 1.4 | | | | | | cm, withoutvisualized | | | | | | etiology. The pancreas, | | | | | | spleen, and adrenal | | | | | | glands areunremarkable. | | | | | | Several hypodense | | | | | | lesions are noted in the | | | | | | kidneys,too small to | | | | | | characterize, | | | | | | statistically most | | | | | | likely representingrenal | | | | | | cysts.Several dilated | | | | | | loops of small bowel are | | | | | | seen in the left | | | | | | upperquadrant, measuring | | | | | | up to 3.5 cm in | | | | | | diameter (image 66), | | | | | | which taperproximally | | | | | | and distally, of unclear | | | | | | significance. These is | | | | | | aboutcoarse posteriorly | | | | | | to the stomach, and may | | | | | | represent an | | | | | | internalhernia, with | | | | | | obstruction.In the | | | | | | pelvis there is a | | | | | | peripherally enhancing | | | | | | fluid | | | | | | collection,containing | | | | | | air. This appears to | | | | | | attach to | | | | | | non-compressed, | | | | | | proximaland distal loops | | | | | | of small bowel, and may | | | | | | represent a | | | | | | smallclosed-loop | | | | | | obstruction or internal | | | | | | hernia. This may less | | | | | | likelyrepresent a pelvic | | | | | | abscess. Trace fluid | | | | | | free fluid is adjacent | | | | | | tothis loop of bowel. | | | | | | There is no free air | | | | | | in the abdomen. | | | | | | Priorsigmoidectomy has | | | | | | been performed.Pelvis | | | | | | findings:Prior | | | | | | hysterectomy has been | | | | | | performed. The urinary | | | | | | bladder isintact. The | | | | | | osseous structures are | | | | | | unremarkable.These | | | | | | findings were discussed | | | | | | with the emergency | | | | | | department doctor, | | | | | | Saman, at time of | | | | | | initial preliminary | | | | | | report by the | | | | | | on-callresident.Impressi | | | | | | on:1. In the pelvis a | | | | | | presumed loop of dilated | | | | | | small bowel | | | | | | isdemonstrated | | | | | | suggesting internal | | | | | | hernia versus closed | | | | | | loopobstruction. This | | | | | | may less likely | | | | | | represent a pelvic | | | | | | abscess.2. Multiple | | | | | | dilated loops of small | | | | | | bowel are noted in the | | | | | | left upperquadrant, | | | | | | which course posterior | | | | | | to the stomach, | | | | | | worrisome for aninternal | | | | | | hernia with small bowel | | | | | | obstruction.3. | | | | | | Nonspecific ectasia of | | | | | | the common duct which | | | | | | is noted to measureto | | | | | | 1.4 cm. Further | | | | | | evaluation with | | | | | | ERCP/MRCP may be | | | | | | considered ifclinically | | | | | | indicated.4. Stable | | | | | | hepatic cysts.I have | | | | | | personally viewed this | | | | | | procedure/exam and | | | | | | reviewed this | | | | | | report.STATUS FINAL / | | | | | | Dr. RYNE PATTERSON | | | | | | PENDING FINAL APPROVAL / | | | | | | Dr. PRIEST Marie | | | | | | AUGUSTINESTATUS PRELIMINARY - | | | | | | UNSIGNED / Dr. CRUZ | | | | | | Frank BRADSHAW | | | | + + + [...] +---------+ + + CT ABDOMEN W CONTRAST (04/02/2008 12:57 AM PDT) + + + + + + | Component | Value | Ref Range | Performed | Pathologist | | | | | At | Signature | + + + + + + | CT ABDOMEN | CT abdomen pelvis | | | | | W CONTRAST | 04/02/08Comparison is | | | | | | made with CT dated | | | | | | 06/22/08History: Rule out | | | | | | small bowel | | | | | | obstruction, history of | | | | | | multiple priorabdominal | | | | | | surgeriesTechnique: | | | | | | Following the uneventful | | | | | | administration of oral | | | | | | and IVcontrast | | | | | | (Omnipaque 145 cc) | | | | | | helical imaging is | | | | | | performed in axialimages | | | | | | through the abdomen and | | | | | | pelvis are | | | | | | generated.Abdomen | | | | | | findingsThe lung bases | | | | | | are clear. There is no | | | | | | pleural or | | | | | | pericardialeffusion. | | | | | | The visualized cardiac | | | | | | and mediastinal | | | | | | structures appearwithin | | | | | | normal limits.As before | | | | | | numerous simple hepatic | | | | | | cysts are appreciated | | | | | | the largestof which is | | | | | | noted in the lateral | | | | | | segment left lobe of | | | | | | liver whichmeasures 2.2 | | | | | | cm in transverse | | | | | | diameter. Prior | | | | | | cholecystectomy hasbeen | | | | | | performed. The common | | | | | | duct is dilated to 1.4 | | | | | | cm, withoutvisualized | | | | | | etiology. The pancreas, | | | | | | spleen, and adrenal | | | | | | glands areunremarkable. | | | | | | Several hypodense | | | | | | lesions are noted in the | | | | | | kidneys,too small to | | | | | | characterize, | | | | | | statistically most | | | | | | likely representingrenal | | | | | | cysts.Several dilated | | | | | | loops of small bowel are | | | | | | seen in the left | | | | | | upperquadrant, measuring | | | | | | up to 3.5 cm in | | | | | | diameter (image 66), | | | | | | which taperproximally | | | | | | and distally, of unclear | | | | | | significance. These is | | | | | | aboutcoarse posteriorly | | | | | | to the stomach, and may | | | | | | represent an | | | | | | internalhernia, with | | | | | | obstruction.In the | | | | | | pelvis there is a | | | | | | peripherally enhancing | | | | | | fluid | | | | | | collection,containing | | | | | | air. This appears to | | | | | | attach to | | | | | | non-compressed, | | | | | | proximaland distal loops | | | | | | of small bowel, and may | | | | | | represent a | | | | | | smallclosed-loop | | | | | | obstruction or internal | | | | | | hernia. This may less | | | | | | likelyrepresent a pelvic | | | | | | abscess. Trace fluid | | | | | | free fluid is adjacent | | | | | | tothis loop of bowel. | | | | | | There is no free air | | | | | | in the abdomen. | | | | | | Priorsigmoidectomy has | | | | | | been performed.Pelvis | | | | | | findings:Prior | | | | | | hysterectomy has been | | | | | | performed. The urinary | | | | | | bladder isintact. The | | | | | | osseous structures are | | | | | | unremarkable.These | | | | | | findings were discussed | | | | | | with the emergency | | | | | | department doctor, | | | | | | Saman at time of | | | | | | initial preliminary | | | | | | report by the | | | | | | on-callresident.Impressi | | | | | | on:1. In the pelvis a | | | | | | presumed loop of dilated | | | | | | small bowel | | | | | | isdemonstrated | | | | | | suggesting internal | | | | | | hernia versus closed | | | | | | loopobstruction. This | | | | | | may less likely | | | | | | represent a pelvic | | | | | | abscess.2. Multiple | | | | | | dilated loops of small | | | | | | bowel are noted in the | | | | | | left upperquadrant, | | | | | | which course posterior | | | | | | to the stomach, | | | | | | worrisome for aninternal | | | | | | hernia with small bowel | | | | | | obstruction.3. | | | | | | Nonspecific ectasia of | | | | | | the common duct which | | | | | | is noted to measureto | | | | | | 1.4 cm. Further | | | | | | evaluation with | | | | | | ERCP/MRCP may be | | | | | | considered ifclinically | | | | | | indicated.4. Stable | | | | | | hepatic cysts.I have | | | | | | personally viewed this | | | | | | procedure/exam and | | | | | | reviewed this | | | | | | report.STATUS FINAL / | | | | | | Dr. RYNE PATTERSON | | | | | | PENDING FINAL APPROVAL / | | | | | | Dr. PRIEST Marie | | | | | | AUGUSTINESTATUS PRELIMINARY - | | | | | | UNSIGNED / Dr. CRUZ | | | | | | Frank BRADSHAW | | | | + + + + + + + + | Specimen | + + | | + + + +---------+ + + | Performing | Address | City/State/Zipcode | Phone Number | | Organization | | | | + +---------+ + + | [facility] DEPARTMENT OF | | | | | RADIOLOGY | | | | + +---------+ + + LACTIC ACID, PLASMA (04/02/2008 12:16 AM PDT) + + + + + + | Component | Value | Ref Range | Performed | Pathologist | | | | | At | Signature | + + + + + + | LACTIC ACID | 1.1Comment: Reference | mmol/L | [facility] | | | | Ranges: Venous blood: | | DEPARTMENT | | | | 0.5-2.2 mmol/L Arterial | | OF | | | | blood: 0.5-1.6 mmol/L | | PATHOLOGY | | | | Arterial blood: 0.5-1.6 mmol/L | | | | + + + + + + + + | Specimen | + + | Blood - Blood | + + + + + + + | Performing | Address | City/State/Zipcode | Phone Number | | Organization | | | | + + + + + | [facility] DEPARTMENT OF | [address] | [place] [address] | | | PATHOLOGY | [address] | | | + + + + + | [facility] | [address] | [place] [address] | | | PATHOLOGY | [address] | | | + + + + + ORDERS OTHER (04/02/2008 12:00 AM PDT) + + + | Narrative | Performed At | + + + | | | + + + + + | Procedure Note | + + | Other, Faculty - 10/26/2010 2:02 PM PDT | | | + + X-RAY ABDOMEN 2 VIEWS (04/01/2008 11:37 PM PDT) + + + + + + | Component | Value | Ref Range | Performed | Pathologist | | | | | At | Signature | + + + + + + | ABDOMEN, 2 | ABDOMEN, TWO VIEWS: | | | | | VIEWS | 04/01/2008 Dictated | | | | | | 04/02/2008COMPARISON: | | | | | | 07/19/2004FINDINGS: | | | | | | There is | | | | | | disproportionate mild | | | | | | dilatation of | | | | | | multiplefluid-containing | | | | | | small bowel loops, with | | | | | | relative decompression | | | | | | ofthe colon. No free | | | | | | intraperitoneal air is | | | | | | seen. | | | | | | Cholecystectomyclips | | | | | | are noted in the right | | | | | | upper quadrant. The | | | | | | visualized | | | | | | osseousstructures are | | | | | | intact.IMPRESSION:Findin | | | | | | gs suspicious for | | | | | | mechanical small bowel | | | | | | obstruction.END | | | | | | IMPRESSIONI have | | | | | | personally viewed this | | | | | | procedure/exam and | | | | | | reviewed this | | | | | | report.STATUS FINAL / | | | | | | Dr. OMI CONTRERAS | | | | | | PRELIMINARY - UNSIGNED / | | | | | | Dr. OMI SKAGGS | | | | + + + + + + + + | Specimen | + + | | + + + +---------+ + + | Performing | Address | City/State/Zipcode | Phone Number | | Organization | | | | + +---------+ + + | [facility] DEPARTMENT OF | | | | | RADIOLOGY | | | | + +---------+ + + DIFFERENTIAL (04/01/2008 10:29 PM PDT) + +---------+ + + + | Component | Value | Ref Range | Performed | Pathologist | | | | | At | Signature | + +---------+ + + + | NEUTROPHIL | 83 (H) | 50 - 70 % | [...] + + + | EOS % | 0 (L) | 1 - 3 % | [facility] [...] +---------+ + + + | NEUTROPHIL | 8.1 (H) | 1.8 - 7.7 K/cu | [...] + + | MONOCYTE # | 0.7 | <0.9 K/cu mm | [facility] | | | | | | DEPARTMENT | | | | | | OF | | | | | | PATHOLOGY | | + +---------+ + + + | EOS # | 0.0 | <0.6 K/cu mm | [facility] | [...] + + + + + | [facility] DEPARTMENT OF | [address] | [place] [address] | | | PATHOLOGY | [address] | | | + + + + + | [facility] DEPARTMENT OF | [address] | [place] [address] | | | PATHOLOGY | [address] | | | + + + + + LIPASE, PLASMA (04/01/2008 10:29 PM PDT) + +--------+ + + + | Component | Value | Ref Range | Performed | Pathologist | | | | | At | Signature | + +--------+ + + + | LIPASE | 14 (L) | 22 - 51 U/L | [facility] | | | (LAB) | | | DEPARTMENT | | | | | | OF | | | | | | PATHOLOGY | | + +--------+ + + + + + | Specimen | + + | Blood - Blood | + + + + + | Narrative | Performed At | + + + | New Creatinine Reference ranges effective 08. | [facility] | | | DEPARTMENT OF | | | PATHOLOGY | + + + + + + + + | Performing | Address | City/State/Zipcode | Phone Number | | Organization | | | | + + + + + | [facility] | [address] | [place] [address] | | | PATHOLOGY | [address] | | | + + + + + | [facility] DEPARTMENT OF | [address] | [place] [address] | | | PATHOLOGY | [address] | | | + + + + + CBC, WITH DIFFERENTIAL (04/01/2008 10:29 PM PDT) + +-------+ + + + [...] + + + | RED CELL | 4.86 | 4.00 - 5.20 | [facility] | | | COUNT | | M/cu mm | DEPARTMENT | | | | | | OF | | | | | | PATHOLOGY | | + +-------+ + + + | HEMOGLOBIN | 13.8 | 12.0 - 16.0 | [facility] | | | | | g/dL | DEPARTMENT | | | | | | OF | | | | | | PATHOLOGY | | + +-------+ + + + | HEMATOCRIT | 41.2 | 36.0 - 46.0 % | [facility] | | | | | | DEPARTMENT | | | | | | OF | | | | | | PATHOLOGY | | + +-------+ + + + | MCV | 84.8 | 80.0 - 96.0 fL | [facility] | | | | | | DEPARTMENT | | | | | | OF | | | | | | PATHOLOGY | | + +-------+ + + + | MCHC | 33.5 | 33.4 - 35.5 | [facility] | | | | | g/dL | DEPARTMENT | | | | | | OF | | | | | | PATHOLOGY | | + +-------+ + + + | RDW | 15.0 | 11.5 - 15.0 % | [facility] | | | | | | DEPARTMENT | | | | | | OF | | | | | | PATHOLOGY | | + +-------+ + + + | PLATELET | 193 | 150 - 400 K/cu | [facility] [...] + + + + + | [facility] DEPARTMENT | [address] | [place] [address] | | | PATHOLOGY | [address] | | | + + + + + | [facility] | [address] | [place] [address] | | | PATHOLOGY | [address] | | | + + + + + COMPLETE METABOLIC SET (NA,K,CL,CO2,BUN,CREAT,GLUC,CA,AST,ALT,BILI TOTAL,ALK PHOS,ALB,PROT TOTAL) (04/01/2008 10:29 PM PDT) + +---------+ + + + | Component | Value | Ref Range | Performed | Pathologist | | | | | At | Signature | + +---------+ + + + | GLUCOSE, | 115 (H) | 60 - 99 mg/dL | [facility] [...] +---------+ + + + | CREATININE | 0.88 | 0.60 - 1.10 | [facility] | | | PLASMA | | mg/dL | DEPARTMENT | | | (LAB) | | | OF | | | | | | PATHOLOGY | | + +---------+ + + + | TOTAL | 6.8 | 6.1 - 7.9 g/dL | [facility] | | | PROTEIN, | | | DEPARTMENT | | | PLASMA | | | OF | | | (LAB) | | | PATHOLOGY | | + +---------+ + + + | ALBUMIN, | 3.8 | 3.5 - 4.7 g/dL | [facility] | | | PLASMA | | | DEPARTMENT | | | (LAB) | | | OF | | | | | | PATHOLOGY | | + +---------+ + + + | CALCIUM, | 9.5 [...] + + + | ALK PHOS | 66 | 53 - 141 U/L | [facility] [...] +---------+ + + + | SODIUM, | 141 [...] TOTAL CO2, | 26 | 23 - 31 mmol/L | [facility] | | | PLASMA [...] Performed At | + + + | New Creatinine Reference ranges effective 08. | [facility] | | | DEPARTMENT OF | | | PATHOLOGY | + + + + + + + + | Performing | Address | City/State/Zipcode | Phone Number | | Organization | | | | + + + + + | [facility] DEPARTMENT OF | [address] | [place] [address] | | | PATHOLOGY | [address] | | | + + + + + | [facility] DEPARTMENT OF | [address] | [place] [address] | | | PATHOLOGY | [address] | | | + + + + + documented in this encounter Visit Diagnoses + + | Diagnosis | + + | Bowel obstruction (HCC) - Primary Unspecified intestinal obstruction | + + documented in this encounter Administered Medications + +--------+ +--------+------+------+ | Medication Order | MAR | Action | Dose | Rate | Site | | | Action | Date | | | | + +--------+ +--------+------+------+ | acetaminophen (aka TYLENOL) | Given | 04/03/20 | 325 mg | | | | liquid 325 mg 325 mg, oral, | | 08 7:51 | | | | | EVERY 4 HOURS NEEDED, Starting | | PM PDT | | | | | [place] 04/02/08 at 1656, Until Mon | | | | | | | 04/06/08 at 1817, mild pain, | | | | | | | headache, fever | | | | | | + +--------+ +--------+------+------+ +-------+ +--------+---+---+ | Given | 04/03/20 | 325 mg | | | | | 08 1:21 | | | | | | PM PDT | | | | +-------+ +--------+---+---+ | Given | 04/02/20 | 325 mg | | | | | 08 9:22 | | | | | | PM PDT | | | | +-------+ +--------+---+---+ +---+---+ | | | +---+---+ + +-------+ +------+---+---+ | anastrozole (aka ARIMIDEX) | Given | 04/06/20 | 1 mg | | | | tablet 1 mg 1 mg, oral, DAILY, | | 08 9:00 | | | | | First dose on [place] 04/02/08 at | | AM PDT | | | | | 0915, Until Discontinued | | | | | | + +-------+ +------+---+---+ +-------+ +------+---+---+ | Given | 04/05/20 | 1 mg | | | | | 08 9:00 | | | | | | AM PDT | | | | +-------+ +------+---+---+ | Given | 04/04/20 | 1 mg | | | | | 08 10:00 | | | | | | AM PDT | | | | +-------+ +------+---+---+ +---+---+ | | | +---+---+ + +-------+ +-------+---+---+ | atenolol (aka TENORMIN) tablet | Given | 04/06/20 | 25 mg | | | | 25 mg 25 mg, oral, DAILY, First | | 08 9:24 | | | | | dose (after last modification) on | | AM PDT | | | | | 04/04/08 at 0900, Until | | | | | | | Discontinued | | | | | | + +-------+ +-------+---+---+ +-------+ +-------+---+---+ | Given | 04/04/20 | 25 mg | | | | | 08 8:40 | | | | | | AM PDT | | | | +-------+ +-------+---+---+ +---+---+ | | | +---+---+ + +-------+ +---------+---+---+ | budesonide (aka PULMICORT) 0.25 | Given | 04/06/20 | 0.25 mg | | | | mg/2 mL nebulizer suspension | | 08 9:00 | | | | | 0.25 mg 0.25 mg, inhalation, | | AM PDT | | | | | TWICE DAILY, First dose on [place] | | | | | | | 04/02/08 at 0915, Until | | | | | | | Discontinued | | | | | | + +-------+ +---------+---+---+ +-------+ +---------+---+---+ | Given | 04/05/20 | 0.25 mg | | | | | 08 9:15 | | | | | | PM PDT | | | | +-------+ +---------+---+---+ | Given | 04/05/20 | 0.25 mg | | | | | 08 9:00 | | | | | | AM PDT | | | | +-------+ +---------+---+---+ +---+---+ | | | +---+---+ + +-------+ +---+---+---+ | aotgthya-ygukxnqhpz-pktzinlrmb | Given | 04/02/20 | | | | | (aka CETACAINE) 2-2-14 % spray | | 08 9:21 | | | | | topical, ONCE, 1 dose, [place] | | PM PDT | | | | | 04/02/08 at 1700 | | | | | | + +-------+ +---+---+---+ +---+---+ | | | +---+---+ + +-------+ +--------+---+---+ | cyclosporin (aka RESTASIS) 0.05 | Given | 04/06/20 | 1 drop | | | | % ophthalmic drops 1 Drop 1 | | 08 9:15 | | | | | drop, Both Eyes, EVERY 12 HOURS, | | AM PDT | | | | | First dose on [place] 04/02/08 at | | | | | | | 0915, Until Discontinued | | | | | | + +-------+ +--------+---+---+ +-------+ +--------+---+---+ | Given | 04/05/20 | 1 drop | | | | | 08 9:15 | | | | | | PM PDT | | | | +-------+ +--------+---+---+ | Given | 04/05/20 | 1 drop | | | | | 08 9:15 | | | | | | AM PDT | | | | +-------+ +--------+---+---+ +---+---+ | | | +---+---+ + +---------+ +-------+-------+---+ | dextrose 5%-NaCl 0.45%-KCl 20 | New Bag | 04/02/20 | 100 | 100 | | | mEq/L IV infusion 100 mL/hr, | | 08 11:00 | mL/hr | mL/hr | | | intravenous, CONTINUOUS, Starting | | AM PDT | | | | | [place] 04/02/08 at 0015, Until Fri | | | | | | | 04/03/08 at 1026 | | | | | | + +---------+ +-------+-------+---+ +---------+ +-------+-------+---+ | New Bag | 04/02/20 | 100 | 100 | | | | 08 12:15 | mL/hr | mL/hr | | | | AM PDT | | | | +---------+ +-------+-------+---+ +---+---+ | | | +---+---+ + +---------+ +-------+-------+---+ | dextrose 5%-NaCl 0.45%-KCl 20 | New Bag | 04/04/20 | 100 | 100 | | | mEq/L IV infusion 100 mL/hr, | | 08 6:20 | mL/hr | mL/hr | | | intravenous, CONTINUOUS, Starting | | AM PDT | | | | | 04/03/08 at 1030, Until Sat | | | | | | | 04/04/08 at 1023 | | | | | | + +---------+ +-------+-------+---+ +---------+ +-------+-------+---+ | New Bag | 04/03/20 | 100 | 100 | | | | 08 8:09 | mL/hr | mL/hr | | | | PM PDT | | | | +---------+ +-------+-------+---+ | New Bag | 04/03/20 | 100 | 100 | | | | 08 10:30 | mL/hr | mL/hr | | | | AM PDT | | | | +---------+ +-------+-------+---+ +---+---+ | | | +---+---+ + +-------+ +---------+---+---+ | dofetilide (akester GARCIA) | Given | 04/06/20 | 500 mcg | | | | capsule 500 mcg 500 mcg, oral, | | 08 9:25 | | | | | TWICE DAILY, First dose on [place] | | AM PDT | | | | | 04/02/08 at 0915, Until | | | | | | | Discontinued | | | | | | + +-------+ +---------+---+---+ +-------+ +---------+---+---+ | Given | 04/05/20 | 500 mcg | | | | | 08 9:00 | | | | | | PM PDT | | | | +-------+ +---------+---+---+ | Given | 04/05/20 | 500 mcg | | | | | 08 9:00 | | | | | | AM PDT | | | | +-------+ +---------+---+---+ +---+---+ | | | +---+---+ + +-------+ +---+---+---+ | hydrocortisone 1 % cream | Given | 04/06/20 | | | | | topical, TWICE DAILY, First dose | | 08 9:25 | | | | | on 04/06/08 at 0900, Until | | AM PDT | | | | | Discontinued | | | | | | + +-------+ +---+---+---+ +---+---+ | | | +---+---+ + +-------+ +--------+---+---+ | iohexol (aka OMNIPAQUE) | Given | 04/02/20 | 150 mL | | | | injection 150 mL 150 mL, | | 08 3:20 | | | | | intravenous, ONCE, 1 dose, [place] | | AM PDT | | | | | 04/02/08 at 0130 | | | | | | + +-------+ +--------+---+---+ +---+---+ | | | +---+---+ + +-------+ +---+---+---+ | iohexol (aka OMNIPAQUE) | Given | 04/02/20 | | | | | injection oral, ONCE, 1 dose, | | 08 1:30 | | | | | [place] 04/02/08 at 0130 | | AM PDT | | | | + +-------+ +---+---+---+ +---+---+ | | | +---+---+ + +-------+ +------+---+---+ | morphine injection 2-4 mg 2-4 | Given | 04/02/20 | 2 mg | | | | mg, intravenous, EVERY 10 MINUTES | | 08 12:47 | | | | | NEEDED, 5 doses, Starting [place] | | AM PDT | | | | | 04/02/08 at 0009, Until Mon | | | | | | | 04/06/08 at 1817, moderate pain, | | | | | | | severe pain | | | | | | + +-------+ +------+---+---+ +---+---+ | | | +---+---+ + +-------+ +------+---+---+ | ondansetron (aka ZOFRAN) | Given | 04/02/20 | 4 mg | | | | injection 4 mg 4 mg, | | 08 1:45 | | | | | intravenous, ONCE, 1 dose, [place] | | AM PDT | | | | | 04/02/08 at 0145 | | | | | | + +-------+ +------+---+---+ +---+---+ | | | +---+---+ + +-------+ +-------+---+---+ | ranitidine (aka ZANTAC) IV 50 | Given | 04/05/20 | 50 mg | | | | mg 50 mg, intravenous, EVERY 8 | | 08 8:00 | | | | | HOURS, First dose on [place] 04/02/08 | | AM PDT | | | | | at 0915, Until Discontinued | | | | | | + +-------+ +-------+---+---+ +-------+ +-------+---+---+ | Given | 04/05/20 | 50 mg | | | | | 08 12:00 | | | | | | AM PDT | | | | +-------+ +-------+---+---+ | Given | 04/04/20 | 50 mg | | | | | 08 4:00 | | | | | | PM PDT | | | | +-------+ +-------+---+---+ +---+---+ | | | +---+---+ + +-------+ +--------+---+---+ | ranitidine (aka ZANTAC) tablet | Given | 04/06/20 | 150 mg | | | | 150 mg 150 mg, oral, TWICE | | 08 9:25 | | | | | DAILY, First dose on 04/05/08 | | AM PDT | | | | | at 2100, Until Discontinued | | | | | | + +-------+ +--------+---+---+ +-------+ +--------+---+---+ | Given | 04/05/20 | 150 mg | | | | | 08 9:00 | | | | | | PM PDT | | | | +-------+ +--------+---+---+ +---+---+ | | | +---+---+ + +-------+ +--------+---+---+ | tiotropium (aka SPIRIVA) | Given | 04/05/20 | 18 mcg | | | | inhalation 18 mcg 18 mcg, | | 08 9:00 | | | | | inhalation, DAILY, First dose on | | AM PDT | | | | | [place] 04/02/08 at 0915, Until | | | | | | | Discontinued | | | | | | + +-------+ +--------+---+---+ +-------+ +--------+---+---+ | Given | 04/04/20 | 18 mcg | | | | | 08 8:40 | | | | | | AM PDT | | | | +-------+ +--------+---+---+ | Given | 04/03/20 | 18 mcg | | | | | 08 9:01 | | | | | | AM PDT | | | | +-------+ +--------+---+---+ +---+---+ | | | +---+---+ documented in this encounter
--- OUTSIDE RECORDS SUMMARY | ~2020-05-04 | XMS | Encounter Summary ---
Demographics + + + | Address | [address] | | | [place] [address] | + + + | Home Phone [...] + | Gene Gee | ECON | [address] | | | | | [place], | | | | | [place] [address] | | + + + + + Care Team Providers + +------+ + | Care University Manager Name | Role | Phone | [...] Closed | | Radiology | Diagnoses | Chika | Marty Ct Scan | | | | | Lung nodule | MD Tr | s [address] | | | | | Procedures | [address] | [address] Cruz | | | | | CT CHEST | [address] | Deisi Naqvi COSU | | | | | WO CONTRAST | Rd | [facility], | | | | | | [place], [place] | [facility] Floor | | | | | | [address] | [place], [place] | | | | | | Phone: | [phone] | | | | | | [phone] | Phone: | | | | | | Fax: | [phone] | | | | | | [phone] | Fax: | | | | | | | [phone] | +--------+--------+ + + + + Reason for Visit Diagnostic Testing (Routine) +--------+--------+ + + + + | Status | Reason | Specialty | Diagnoses / | Referred By | Referred To | | | | | Procedures | Contact | Contact | +--------+--------+ + + + + | Closed | | Radiology | Diagnoses | Chika, | Marty Ct Scan | | | | | Lung nodule | MD Tr | s [address] | | | | | Procedures | [address] | Dereck Cruz | | | | | CT CHEST | [facility] | Deisi HYATT | | | | | WO CONTRAST | Rd | [facility], | | | | | | [place], [place] | [facility] Floor | | | | | | [address] | [place], [place] | | | | | | Phone: | [phone] | | | | | | [phone] | Phone: | | | | | | Fax: | [phone] | | | | | | [phone] | Fax: | | | | | | | [phone] | +--------+--------+ + + + + Encounter Details +--------+ + + + + | Date | Type | Department | Care Team | Description | +--------+ + + + + | 05/03/ | Hospital | Diagnostic Imaging | | | | 2009 | Encounter | Services at [facility] | | | | | | [address] | | | | | | Deisi Naqvi [facility] | | | | | | [address] | | | | | | [place], [place] | | | | | | [address] | | | | | | [phone] | | | +--------+ + + + [...] + | CT CHEST WO CONTRAST | Routin | 05/03/2010 | Lung nodule | Results for this | | | e | 3:07 PM | | procedure are in the | | | | PDT | | results section. | + +--------+ + + + documented in this encounter Results CT CHEST WO CONTRAST (05/03/2010 3:07 PM PDT) + + + + + + | Component | Value | Ref Range | Performed | Pathologist | | | | | At | Signature | + + + + + + | CT CHEST WO | CT chest without | | | | | CONTRAST | contrast | | | | | | Comparison: 12/28/08, | | | | | | 09/17/08. History: | | | | | | Reevaluate lung nodules. | | | | | | Breast cancer. | | | | | | Technique: Overlapping | | | | | | 5-mm axial images were | | | | | | acquired through | | | | | | thechest without | | | | | | contrast. Findings: | | | | | | There is no pleural or | | | | | | pericardial effusion. | | | | | | The heart size | | | | | | isnormal. Surgical | | | | | | changes are seen from | | | | | | prior right mastectomy | | | | | | andaxillary lymph node | | | | | | dissection. No | | | | | | pathologically enlarged | | | | | | axillary,mediastinal, or | | | | | | hilar lymph node is | | | | | | identified. A 3 mm | | | | | | nodule isagain seen | | | | | | along the minor fissure | | | | | | (image 53), unchanged | | | | | | since09/17/08. An | | | | | | additional 2-mm nodule | | | | | | is present along the | | | | | | minor fissure(image 51); | | | | | | retrospectively, this | | | | | | was present on the | | | | | | patient's priorstudies | | | | | | and appears unchanged. | | | | | | A new peripheral 3-mm | | | | | | nodule isidentified in | | | | | | the right middle lobe | | | | | | (image 80). Mild | | | | | | scarring ispresent at | | | | | | the right lung base, | | | | | | unchanged. The lungs | | | | | | are otherwiseclear. | | | | | | Within the visualized | | | | | | upper abdomen, multiple | | | | | | hepatic cysts are | | | | | | againseen. The | | | | | | gallbladder is | | | | | | surgically absent. The | | | | | | remainder of | | | | | | thevisualized upper | | | | | | abdomen is normal. No | | | | | | osseous abnormality | | | | | | isidentified. | | | | | | IMPRESSION: New | | | | | | indeterminate 3-mm | | | | | | nodule within the right | | | | | | middle lobe. Twostable | | | | | | sub-4 mm right upper | | | | | | lobe/pericentral | | | | | | nodules. Attention | | | | | | onfollow-up imaging is | | | | | | recommended. I have | | | | | | personally viewed this | | | | | | procedure/exam and | | | | | | reviewed this report. | | | | | | Author: AMOS | | | | | | MANDI GRAVESeviewer: | | | | | | SADIE GREGG MD STATUS | | | | | | FINAL / Dr. NOEL | | | | | | DENATAKoriUS FINAL / | | | | | | SADIE LLANOS | | | | | | PRELIMINARY - UNSIGNED / | | | | | | - - | | | | + + + [...] + | Diagnosis | + + | Lung nodule Other diseases of lung, not elsewhere classified | + + documented in this encounter"
--- OUTSIDE RECORDS SUMMARY | ~2020-05-04 | XMS | Encounter Summary ---
Demographics + + + | Address | [address] | | | [place] [address] | + + + | Home Phone | | + + + | Preferred Language | Unknown | + + + | Marital Status | | + + + | Mormonism Affiliation | 1013 | + + + | Race | White | + + + | Ethnic Group | Not or | + + + Author + + + | Author | [facility] | | | and [place] | + + + | Organization | [facility] | | | [...] Team Providers + +------+ + | Care Scale Model Maker Name | Role | Phone | + +------+ + | Alec Hill MD | PCP | | + +------+ + Encounter Details +--------+ + + + + | Date | Type | Department | Care Team | Description | +--------+ + + + + | 05/07/ | Orders Only | [facility] | Martin Kelley, | | | 2017 | | CARDIOLOGY ELIZA | [address] | | | | | [address] | [place], | | | | | [place] | [place] [address] | | | | | [address] | [phone] | | | | | [phone] | | | +--------+ + + + [...] | 2019 | Visit | | MD Shay [address] | | | | | | [place] [address] | | | | | | [phone] | | | | | | | | +--------+ + + + + | 05/19/ | Appointment | Cardiology | Martin Kelley, | | | 2019 | | | MD [address] | | | | | | [place] | | | | | | [place] [address] | | | | | | [phone] | | | | | | | | +--------+ + + + + | 11/26/ | Office | Cardiology | Martin Kelley, | | | 2020 | Visit | | MD [address] | | | | | | [place] | | | | | | [place] [address] | | | | | | [phone] | | | | | | | | +--------+ + + + + documented as of this encounter Visit Diagnoses Not on filedocumented in this encounter"
--- OUTSIDE RECORDS SUMMARY | ~2020-05-04 | XMS | Encounter Summary ---
Demographics + + + | Address | [address] | | | [place] [address] | + + + | Home Phone [...] + | Gene Gee | ECON | [address] | | | | | [place], | | | | | [place] [address] | | + + + + + Care Team Providers + +------+ + | Care Ostrich Farmer Name | Role | Phone | + +------+ + | Antony Ribera MD | PCP | | + +------+ + Encounter Details +--------+---------+ + + + | Date | Type | Department | Care Team | Description | +--------+---------+ + + + | 05/16/ | Office | Cardiology | Elijah Whalen, | Atrial tachycardia | | 2017 | Visit | Arrhythmia at [facility] | [address] | ([facility]) (Primary Dx); | | | | [address] | [address] | Paroxysmal atrial | | | | [place] for [facility] | [place], [place] | fibrillation ([facility]) | | | | and Healing, | [address] | | | | | [facility] | [phone] | | | | | Floor [place], [place] | | | | | | [address] | | | | | | [phone] | | | +--------+---------+ + + + [...] Pressure | 145/75 | 05/16/2017 12:46 PM | | | | | PDT | | + + + + + | Pulse | 83 | 05/16/2017 12:46 PM | | | | | PDT | | + + + + + | Temperature | - | - | | + + + + + | Respiratory Rate | - | - | | + + + + + | Oxygen Saturation | 99% | 05/16/2017 12:46 PM | | | | | PDT | | + + + + + | Inhaled Oxygen | - | - | | | Concentration | | | | + + + + + | Weight | 73.2 kg (161 lb 6.4 | 05/16/2017 12:46 PM | | | | oz) | PDT | | + + + + + | Height | 166.4 cm (5' 5.5") | 05/16/2017 12:46 PM | | | | | PDT | | + + + + + | Body Mass Index | 26.45 | 05/16/2017 12:46 PM | | | | | PDT | | + + + + + documented in this encounter Patient Instructions Patient Instructions Elijah Whalen MD - 05/16/2017 1:05 PM PDT1 - If you notice sustain ed irregular tachcyardia please get an ECG at the hospital in [place] 2 - If your leg swelling or shortness of breath becomes clearly worse, contact be about get ting an echocardiogram Otherwise I'll see you back in a yearElectronically signed by Elijah Whalen MD at 017 1:37 PM PDT documented in this encounter Progress Notes Elijah Whalen MD - 05/16/2017 1:05 PM PDTFormatting of this note might be different fro m the original. Arrhythmia Clinic Follow-up Past Medical History: Diagnosis Date Asthma 1999 Atrial tachycardia (HCC) 07/20 also episode in setting of [place] virus in 05/2012 which was thougth to be AF, but likely just AT. Atrial tachycardia (HCC) RA stacey tach ablated 2004 at [facility]. Repeat EPS showed only non-sustained left atrial tach ycardia Breast cancer (HCC) 02/2007 s/p chemo with taxotere/cytoxan Bursitis 2005 Deep vein thrombosis of lower extremity (HCC) Diverticul disease small and large intestine, no perforati or abscess Fibrocystic disease of breast 1978 Fibromyalgia 1995 GERD (gastroesophageal reflux disease) 1995 Mitral valve prolapse 1989 Osteopenia 12/30/2007 Plantar fascial fibromatosis 2007 plantar [...] bone and cartilage 12/30/2007 Overview Note: Reclast [id number] DXA 06/02/15: L -1.6 H -1.9 DXA 06/06/13; L -1.6 H -1.9 DXA 04/28/11: L -1.8 H -1.8 DXA 01/27/10: L -1.9 H -1.6 DXA 12/28/08: L -1.9 H -1.5 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 lactobac b #[id number] 300-250 million cell-mg oral capsule Take by [...] to be done either locally or at [facility] 4 - she will see Francheska Quick [...] Elijah Whalen MD Cardiovascular Medicine - Electrophysiology [facility] Cardiovascular [place] at [facility] documented in this en counter Plan of Treatment + +------+--------+ + + | Name | Type | Priori | Associated Diagnoses | Order Schedule | | | | ty | | | + +------+--------+ + + | 12 LEAD ECG | ECG | Routin | Paroxysmal atrial | Ordered: 05/16/2017 | | | | e | fibrillation ([facility]) | | + +------+--------+ + + documented as of this encounter Procedures + +--------+ + + + | Procedure Name | Priori | Date/Time | Associated Diagnosis | Comments | | | ty | | | | + +--------+ + + + | 12 LEAD ECG | Routin | 05/16/2017 | Atrial tachycardia | Results for this | | | e | 12:40 PM | (HCC) Paroxysmal | procedure are in the | | | | PDT | atrial fibrillation | results section. | | | | | (HCC) | | + +--------+ + + + documented in this encounter Results 12 LEAD ECG (05/16/2017 12:40 PM PDT) + + + + + + | Component | Value | Ref Range | Performed | Pathologist | | | | | At | Signature | + + + + + + | VENTRICULAR | 83 | bpm | [facility] | | | RATE | | | OF | | | | | | CARDIOLOGY | | + + + + + + | ATRIAL RATE | 84 | ms | [facility] | | | | | | OF | | | | | | CARDIOLOGY | | + + + + + + | P-R | 193 | ms | [facility] | | | INTERVAL | | | OF | | | | | | CARDIOLOGY | | + + + + + + | P AXIS | 62 | deg | [facility] | | | | | | OF | | | | | | CARDIOLOGY | | + + + + + + | QRS | 97 | ms | [facility] | | | DURATION | | | OF | | | | | | CARDIOLOGY | | + + + + + + | QT | 393 | ms | [facility] | | | | | | OF | | | | | | CARDIOLOGY | | + + + + + + | QTC-BAMOLLYTT | 462 | ms | [facility] | | | | | | OF | | | | | | CARDIOLOGY | | + + + + + + | R AXIS | -22 | deg | [facility] | | | | | | OF | | | | | | CARDIOLOGY | | + + + + + + | T AXIS | 22 | deg | [facility] | | | | | | OF | | | | | | CARDIOLOGY | | + + + + + + | ECG | Sinus rhythm | | [facility] | | | IMPRESSION | | | OF | | | | | | CARDIOLOGY | | + + + + + + | ECG | Consider anteroseptal | | [facility] | | | IMPRESSION | infarct- ABNORMAL ECG - | | OF | | | | | | CARDIOLOGY | | + + + + + + | ECG | Electronically signed | | [facility] | | | IMPRESSION | by: YOLANDA BURNS | | OF | | | | 05-16-2017 20:26:54 | | CARDIOLOGY | | + + [...] | [facility] | [address] | [place], [place] | | | CARDIOLOGY | [address] | [address] | | + + + + + documented in this encounter Visit Diagnoses + + | Diagnosis | + + | Atrial tachycardia (HCC) - Primary Other specified cardiac dysrhythmias | + + | Paroxysmal atrial fibrillation (HCC) Atrial fibrillation | + + documented in this encounter
--- OUTSIDE RECORDS SUMMARY | ~2020-05-04 | XMS | Encounter Summary ---
Demographics + + + | Address | [address] | | | [place] [address] | + + + | Home Phone [...] + | Gene Gee | ECON | [address] | | | | | [place], | | | | | [place] [address] | | + + + + + Care Team Providers + +------+ + | Care Airfield Services Officer Name | Role | Phone | + +------+ + | Alec Hill MD | PCP | | + +------+ + Reason for Visit +--------+--------+ + | Reason | Onset | Comments | | | Date | | +--------+--------+ + | Other | 08/21/ | | | | 2016 | | +--------+--------+ + Encounter Details +--------+ + + + + | Date | Type | Department | Care Team | Description | +--------+ + + + + | 08/21/ | Telephone | Cardiology | Elijah Whalen, | Other | | 2017 | | [facility] | [address] | | | | | [address] | [address] | | | | | [facility] | [place], [place] | | | | | and [place], | [address] | | | | | [facility] | [phone] | | | | | Floor [place], [place] | | | | | | [address] | | | | | | [phone] | | | +--------+ + + + [...] Telephone Encounter - [place] Flanagan RN - 08/21/2016 3:29 PM PSTPatient called back. She states that she is feeling some palpitations in the morning and as the day progresses, she has more palpitations. She feels she has the most palpations at night. Per Dr. Whalen's recommendation, patient visited her PCP's office to receive an EKG while she was symptomatic. The EKG machine broke and therefore PCP obtained cardiac rhythm strip - which can be found under the media tab. Dr. Whalen's recommendation during patients office visit on 04/19/2016: 1 - Stop dofetilide 2 - If she has recurrent bothersome palpitations, she will get a 12-lead ECG and possible 1 2-lead rhythm strip at Dr. Ribera's office or local ED 3 - With bothersome palpitations we will also order a 30-day event monitor to evaluate for multiple arrhythmias Per Dr. Whalen's plan - 30 day event monitor ordered. Order faxed to [facility] in [place], [place] at Called EKG/respiratory department at phone# [phone], spoke to Eden. I notified Gisele kelly of patients allergy to tape and the need for hypoallergenic adhesive. I then called patient back to confirm that the monitor was ordered - she was appreciative o f the call. Set a reminder flag for EP RN's to f/u that we receive monitor results for Dr. Whalen's re view. Routed to Dr. Whalen as an FYI. elephone [place] Mata RN - 08/21/2016 3:16 PM PSTReturned call to patient. LVM to call ba ck. elephone Marjan Cedeno - 08/21/2016 2:46 PM PSTPatient calls with the following question: Th e pt wants to verify ekg report has been sent from [employer] and where to go from here. Okay to send Mychart Response? no The best phone number to reach the patient today is [phone]. Best time to reach the p atient is anytime. ~~~~ ROUTE TO CAR TRIAGE POOL ~~~~~ documented in this encount er Plan of Treatment + +------+--------+ + + | Name | Type | Priori | Associated Diagnoses | Order Schedule | | | | ty | | | + +------+--------+ + + | 30 DAY CARDIAC | ECG | Routin | Atrial tachycardia | Ordered: 08/21/2016 | | MONITOR - ECG | | e | (HCC) | | + +------+--------+ + + documented as of this encounter Visit Diagnoses + + | Diagnosis | + + | Atrial tachycardia (HCC) - Primary Other specified cardiac dysrhythmias | + + documented in this encounter"
--- OUTSIDE RECORDS SUMMARY | ~2020-05-04 | XMS | Encounter Summary ---
Demographics + + + | Address | [address] | | | [place] [address] | + + + | Home Phone | | + + + | Preferred Language | Unknown | + + + | Marital Status | | + + + | Yarsanism Affiliation | 1013 | + + + | Race | White | + + + | Ethnic Group | Not or | + + + Author + + + | Author | [facility] | | | and [place] | + + + | Organization | [facility] | | | [...] Team Providers + +------+ + | Care Electrical Assembler Name | Role | Phone | + +------+ + PCP | Unavailable | + +------+ + Encounter Details +--------+ + + + + | Date | Type | Department | Care Team | Description | +--------+ + + + + | 06/01/ | [facility] | [facility] | Dilip Frias MD | | | 1999 | Encounter | MED CTR GENERIC OP | [address] | | | | | CONV DEPT [address] | [address] | | | | | [place], | [address] | | | | | [place] [address] | | | | | | [phone] | | | +--------+ + + + [...] | | | | | [place] [address] | | | | | | [phone] | | | | | | | | +--------+ + + + + | 05/19/ | Appointment | Cardiology | Martin Kelley, | | 2019 | | | MD [address] | | | | | | [place], | | | | | | [place] [address] | | | | | | [phone] | | | | | | | | +--------+ + + + + | 11/26/ | Office | Cardiology | Martin Kelley, | | | 2020 | Visit | | MD [address] | | | | | | [place], | | | | | | [place] [address] | | | | | | [phone] | | | | | | | | +--------+ + + + + documented as of this encounter Visit Diagnoses Not on filedocumented in this encounter"
--- OUTSIDE RECORDS SUMMARY | ~2020-05-04 | XMS | Encounter Summary ---
Demographics + + + | Address | [address] | | | [place] [address] | + + + | Home Phone [...] + + + | Author | [facility] | + + + | Organization | [facility] | + + + | Address | Unknown | + + + | Phone | Unavailable | + + + Support + + + + + | Name | Relationship | Address | Phone | + + + + + | Gene Gee | ECON | [address] | | | | | [place], | | | | | [place] [address] | | + + + + + Care Team Providers + +------+ + | Care Solid Waste Truck Driver Name | Role | Phone | + +------+ + | Antony Ribera MD | PCP | | + +------+ + Reason for Visit + +--------+ + | Reason | Onset | Comments | | | Date | | + +--------+ + | Other | 09/21/ | | | | 2008 | | + +--------+ + | Pulmonary embolism | | | + +--------+ + | Medication Question | 09/21/ | | | | 2008 | | + +--------+ + Encounter Details +--------+ + + + + | Date | Type | Department | Care Team | Description | +--------+ + + + + | 09/21/ | Telephone | Hematology/Medical | Stevan Velazquez, | Other; Pulmonary | | 2008 | | Oncology at [facility] | MD [address] | embolism; Medication | | | | [address] | [place], [place] | Question | | | | Mailcode: [place] | [address] | | | | | [facility] | [phone] | | | | | and Healing, | | | | | | [facility] | | | | | | Floor [place], [place] | | | | | | [address] | | | | | | [phone] | | | +--------+ + + + [...] Telephone Encounter - Rosalinda Palacios RN - 09/22/2008 8:38 AM PDTPatient called back to jesse onfirm the plan. See message below. She is going in again today to have labs drawn and sta rt the Coumadin. Dr. Ribera will manage her anticoagulation. Routing to MD as FYI only.Elect ronically signed by Rosalinda Palacios RN at 09/22/2008 8:38 AM PDTTelephone Encounter - Rosalinda Rosas RN - 09/21/2008 4:51 [address] message [address] Velazquez in regards to email p atient sent him below. Spoke to patient's , Deepak. He states that they are talking w ith Dr. Ribera, patient's pcp in [place], regarding plan for anticoagulation. He believes t hey will be switching to Coumadin in a few days and says that Dr. Ribera will manage this. Se nt message to Marcus to let him know and requested patient or call back tomorrow to co nfirm the plan. --------- Please call patient and find out the following What is her plan for anti-coagulation switch to Coumadin ?? Who is going to monitor that? From my perspective, the incidence of DVT from arimidex is felt to be very very minimal. I will continue her on arimidex while she is taking Coumadin. If we run into trouble again wit h blood clots, I will take her off treatment. Arimidex is felt to be much safer than tamox ifen as far as blood clots are concerned. From: Mikel [[email or web address]] Sent: Friday, September 19, 2008 9:14 AM To: Tricia Velazquez Subject: latest diagnosis Good Morning, Dr. Velazquez I have been at [facility] for the last 3 days having more testing done regarding my lungs/heart. I DO NOT have pulmonary hypertension, (Yeah!) but I do have a blood clot in my lung and hav e started with Lovenox shots for now. Dr. Ruth Hernandez has all the information. I hope th at this doesn't change any of my drug choices for you. We are in [place] through tonight a nd will be home late tomorrow. I hope to hear from you on Sunday -- to see if this is OK f or my arimidex. Have a good rest of the weekend. Sincerely, [email or web address] [email or web address] documented in this e ncounter Plan of Treatment Not on filedocumented as of this encounter Visit Diagnoses Not on filedocumented in this encounter"
--- OUTSIDE RECORDS SUMMARY | ~2020-05-04 | XMS | Encounter Summary ---
Demographics + + + | Address | [address] | | | [place] [address] | + + + | Home Phone [...] + | Gene Sahil | ECON | [address] | | | | | [place], | | | | | [place] [address] | | + + + + + Care Team Providers + +------+ + | Care Nuclear Reactor Engineer Name | Role | Phone | + +------+ + | Antony Ribera MD | PCP | | + +------+ + Encounter Details +--------+ + + + + | Date | Type | Department | Care Team | Description | +--------+ + + + + | 07/20/ | Procedure - | Surgical Oncology | Henri Heart, | OP REPORT-TEACHING | | 2011 | | at [facility] [address] | [address] | | | | Transcribed | [facility] | [place], [place] | | | | | Health and Healing, | [address] | | | | | Building [address] | [phone] | | | | | [place], [place] | | | | | | [address] | | | | | | [phone] | | | +--------+ + + + [...] documented as of this encounter Procedure Notes Henri Heart MD - 07/21/2011 12:31 AM PSTAssociated Order(s): TEACHING PHYSICIAN 01 [id number] [facility] ADRIANA Holman [id number] Date: 07/20/2011 Attending Surgeon: Henri Heart M.D. Butadiene Converter Utility Operator(s): Kelsi Self M.D. Procedures Performed: 3 mm punch biopsy, skin lesion on right back. I was present and scrubbed for the entire case. Henri Heart M.D. / [id number] / [id number] / [id number] / documented in this e ncounter Plan of Treatment Not on filedocumented as of this encounter Procedures + +--------+ + + + | Procedure Name | Priori | Date/Time | Associated Diagnosis | Comments | | | ty | | | | + +--------+ + + + | TEACHING PHYSICIAN | | 08/07/2011 | | Results for this | | | | 8:23 AM | | procedure are in the | | | | PST | | results section. | + +--------+ + + + documented in this encounter Results TEACHING PHYSICIAN (08/07/2011 8:23 AM PST) + + | Transcriptions | + + | Henri Heart MD - 07/21/2011 12:31 AM PST [id number] | | [id number] SAHIL AGUILAR | | J [id number] Date: 07/20/2011 Attending Surgeon: | | Henri Heart M.D. Butadiene Converter Utility Operator(s): Kelsi Self M.D. | | Procedures Performed:3 mm punch biopsy, skin lesion on right back. I was present and | | scrubbed for the entire case. Henri Heart M.D. / [id number] / [id number] / [id number] /D: | | 07/20/2011T: 07/21/2011 | |Attending Surgeon: Henri Heart M.D. | | | | | |Butadiene Converter Utility Operator(s): Kelsi Self M.D. | | | | | |Procedures Performed: | |3 mm punch biopsy, skin lesion on right back. | | | | | |I was present and scrubbed for the entire case. | | | | | | | | | |Henri Heart M.D. | |RP / | |[id number] / [id number] / [id number] / | | | | | | | | | | | | | | | | | | | | | + + documented in this encounter Visit Diagnoses Not on filedocumented in this encounter"
--- OUTSIDE RECORDS SUMMARY | ~2020-05-04 | XMS | Encounter Summary ---
Demographics + + + | Address | [address] | | | [place] [address] | + + + | Home Phone [...] + | Gene Gee | ECON | [address] | | | | | [place], | | | | | [place] [address] | | + + + + + Care Team Providers + +------+ + | Care Repair Miller Name | Role | Phone | + +------+ + | Antony Ribera MD | PCP | | + +------+ + Encounter Details +--------+ + + + + | Date | Type | Department | Care Team | Description | +--------+ + + + + | 10/13/ | MyChart | Cardiology | Gary Fuentes MD | RE: Arrythmia and | | 2015 | Encounter | Arrhythmia at [facility] | [address] | high blood pressure | | | | [address] | [address] [place], | episode | | | | [facility] | [place] [address] | | | | | and Healing, | [phone] | | | | | [facility] | | | | | | Floor [place], [place] | | | | | | [address] | | | | | | [phone] | | | +--------+ + + + [...]
--- OUTSIDE RECORDS SUMMARY | ~2020-05-04 | XMS | Encounter Summary ---
Demographics + + + | Address | [address] | | | [place] [address] | + + + | Home Phone [...] + | Gene Gee | ECON | [address] | | | | | [place], | | | | | [place] [address] | | + + + + + Care Team Providers + +------+ + | Care Feeder Switchboard Operator Name | Role | Phone | + +------+ + | Antony Ribera MD | PCP | | + +------+ + Reason for Visit + + + | Reason | Comments | + + + | Osteopenia | | + + + Consultation (Urgent) +--------+--------+ + + + + | Status | Reason | Specialty | Diagnoses / | Referred By | Referred To | | | | | Procedures | Contact | Contact | +--------+--------+ + + + + | Closed | | Endocrinology | Diagnoses | Luoh, | End Bone | | | | Diabetes & | Acquired | Shiuh Danni, | [facility] | | | | Metabolism | absence of | MD [address] | | | | | breast and | [address] | [address] | | | | | nipple | [place], [place] | Physician's | | | | | Procedures | [address] | Pavilion, | | | | | CONSULT TO | Phone: | 1st floor | | | | | ENDO | [phone] | [place], [place] | | | | | [address] | Fax: | [address] | | | | | [address] | [phone] | Phone: | | | | | | | [phone] | | | | | | | Fax: | | | | | | | [phone] | +--------+--------+ + + + + Encounter Details +--------+---------+ + + + | Date | Type | Department | Care Team | Description | +--------+---------+ + + + | 01/28/ | Office | John [facility] | Tapan Horowitz MD | Osteopenia (Primary | | 2009 | Visit | Diabetes Health | [address] [facility] | Dx) | | | | Center at Physicians | [address] [place], | | | | | [address] | [place] [address] | | | | | [address] | [phone] | | | | | Physician's | | | | | | [address], 1st floor | | | | | | [place], [place] | | | | | | [address] | | | | | | [phone] | | | +--------+---------+ + + + [...] + + + | Blood Pressure | 127/58 | 01/28/2010 1:31 PM | | | | | PDT | | + + + + + | Pulse | 65 | 01/28/2010 1:31 PM | | | | | PDT | | + + + + + | Temperature | - | - | | + + + + + | Respiratory Rate | 12 | 01/28/2010 1:31 PM | | | | | PDT | | + + + + + | Oxygen Saturation | - | - | | + + + + + | Inhaled Oxygen | - | - | | | Concentration | | | | + + + + + | Weight | 67 kg (147 lb 12.8 | 01/28/2010 1:31 PM | | | | oz) | PDT | | + + + + + | Height | - | - | | + + + + + | Body Mass Index | 23.68 | 01/27/2010 9:04 AM | | | | | PDT | | + + + + + documented in this encounter Progress Notes Tapan Horowitz MD - 01/28/2010 1:49 PM PDTFormatting of this note might be different from t he original. Chief Complaint: Patient being seen in followup for the following issues: Osteopenia ROS All other systems have been reviewed and are unchanged from past visits. S: doing well O: Filed Vitals: 01/28/2010 1:31 PM Weight: 67.042 kg (147 lb 12.8 oz) BP: 127/58 Pulse: 65 Resp: 12 PainSc: 04 - Moderate PainLoc: Foot (Left) gen nad A/p 1. Osteopenia: Pt doing well. Had 2nd reclast infusion on January 27, 2010. Sees a dentist r egularly. Pt on calcium/vit d. Pt bone density stable from 2008. Will plan on third and lon l reclast in January 2011. The time I spent with the patient was 15 minutes of which greater than 50% was spent in one on one counseling. Reviewed bone density result. documented in this encou nter Plan of Treatment Not on filedocumented as of this encounter Visit Diagnoses + + | Diagnosis | + + | Osteopenia - Primary Disorder of bone and cartilage, unspecified | + + documented in this encounter"
--- OUTSIDE RECORDS SUMMARY | ~2020-05-04 | XMS | Encounter Summary ---
Demographics + + + | Address | [address] | | | [place] [address] | + + + | Home Phone [...] + | Gene Gee | ECON | [address] | | | | | [place], | | | | | [place] [address] | | + + + + + Care Team Providers + +------+ + | Care Banquet Coordinator Name | Role | Phone | + +------+ + | Anotny Ribera MD | PCP | | + +------+ + Encounter Details +--------+ + + + + | Date | Type | Department | Care Team | Description | +--------+ + + + + | 10/30/ | Telephone | Pulmonary & | Juana Kilgore MD | | | 2018 | | Critical Care | [address] | | | | | Medicine at | [facility], | | | | | Physicians [place] | [place] [address] | | | | | [address] | [phone] | | | | | Loop Physician's | | | | | | [address], 3rd Floor | | | | | | [place], [place] | | | | | | [address] | | | | | | [phone] | | | +--------+ + + + [...]
--- OUTSIDE RECORDS SUMMARY | ~2020-05-04 | XMS | Encounter Summary ---
Demographics + + + | Address | [address] | | | [place] [address] | + + + | Home Phone [...] + | Gene Gee | ECON | [address] | | | | | [place], | | | | | [place] [address] | | + + + + + Care Team Providers + +------+ + | Care Audio Tape Librarian Name | Role | Phone | + +------+ + | Antony Ribera MD | PCP | | + +------+ + Reason for Visit +--------+--------+ + | Reason | Onset | Comments | | | Date | | +--------+--------+ + | Other | 01/26/ | | | | 2008 | | +--------+--------+ + Encounter Details +--------+ + + + + | Date | Type | Department | Care Team | Description | +--------+ + + + + | 01/26/ | Telephone | Pulmonary & | Sergio Smith | Other | | 2008 | | Critical Care | MD Dianna | | | | | Medicine at | | | | | | [facility] | | | | | | [address] | | | | | | Loop Physician's | | | | | | [address], 3rd Floor | | | | | | [place], [place] | | | | | | [address] | | | | | | [phone] | | | +--------+ + + + [...] encounter Miscellaneous Notes Telephone Encounter - Virginia Horton MD - 01/28/2009 12:27 PM PDTI called and spoke wi th Mrs. Flynn. She requested the results of her thyroid ultrasound (which was done on 01/12 and recently scanned into our system). I have requested the official read (from [facility]), which shows multiple small <5mm thyroid nodules/cysts. The largest nodule is ~4.5 mm, likely too small to FNA, and should be followed up in ~6months with repeat U/S. Fi fadumo report will be sent to us and scanned into [employer]. I left a message with Dr. Antony Ribera (pts PCP) to discuss these results and have him foll ow up. I also gave these preliminary results to Mrs. Flynn who will discuss them with Dr. Bryanna castañeda at her upcoming appointment. elephone Encounte r - Rio Roberson - 01/27/2009 11:39 AM PDTPatient called again, still waiting to get resul ts from test. elephone Enco unter - Sergio Smith MD - 01/26/2009 8:[address] Horton. Electronical ly signed by Sergio Smith MD at 01/26/2009 8:39 PM PDTTelephone Encounter - Rio Roberson - 01/26/2009 1:12 PM PDTPt has not received call re: her test results. Was told to e xpect one last week. She wants to know "what she has" documented in this encounter Plan of Treatment Not on filedocumented as of this encounter Visit Diagnoses Not on filedocumented in this encounter
--- OUTSIDE RECORDS SUMMARY | ~2020-05-04 | XMS | Encounter Summary ---
Demographics + + + | Address | [address] | | | [place] [address] | + + + | Home Phone | | + + + | Preferred Language | Unknown | + + + | Marital Status | | + + + | Mosque Affiliation | CHR | + + + | Race | White | + + + | Ethnic Group | Not or | + + + Author + + + | Author | [facility] | + + + | Organization | [facility] | + + + | Address | Unknown | + + + | Phone | Unavailable | + + + Support + + + + + | Name | Relationship | Address | Phone | + + + + + | Gene Gee | ECON | [address] | | | | | [place], | | | | | [place] [address] | | + + + + + Care Team Providers + +------+ + | Care Hoisting Machine Operator Name | Role | Phone | + +------+ + | Antony Ribera MD | PCP | | + +------+ + Encounter Details +--------+ + + + + | Date | Type | Department | Care Team | Description | +--------+ + + + + | 08/07/ | Telephone | Cardiology General | Monique Middleton, | | | 2008 | | at [facility] [address] | [facility] | | | | | [facility] [place] [facility] | | | | | | Health and Healing, | | | | | | Building | | | | | | Floor [place], [place] | | | | | | [address] | | | | | | [phone] | | | +--------+ + + + [...] Telephone Encounter - Monique Middleton Np - 08/07/2008 12:47 PM PSTCalled to discuss her sym ptoms again--she is still short of breath and feels her heart is racing. Will have her go [facility] and get an EKG--dx atrial tachycardia. documented in this encounter Plan of Treatment Not on filedocumented as of this encounter Visit Diagnoses Not on filedocumented in this encounter"
--- OUTSIDE RECORDS SUMMARY | ~2020-05-04 | XMS | Encounter Summary ---
Demographics + + + | Address | [address] | | | [place] [address] | + + + | Home Phone [...] + | Gene Gee | ECON | [address] | | | | | [place], | | | | | [place] [address] | | + + + + + Care Team Providers + +------+ + | Care Real Estate Closer Name | Role | Phone | + +------+ + | Antony Ribera MD | PCP | | + +------+ + Encounter Details +--------+ + + + + | Date | Type | Department | Care Team | Description | +--------+ + + + + | 10/29/ | Hospital | Women's Imaging | [facility], | | | 2018 | Encounter | Center at [facility] [address] | [address] | | | | | [facility] [address] | [place], [place] | | | | | [address], [address]th Floor | [address] | | | | | [place], [place] | [phone] | | | | | [address] | | | | | | [phone] | | | +--------+ + + + [...] | | 0 | | | | [id number] | daily. | | | | | [...] + +--------+ + + + | MA CRISTAL SCREEN LEFT | Routin | 10/29/2017 | Malignant neoplasm | Results for this | | W/CAD | e | 11:36 AM | of right female | procedure are in the | | | | PDT | breast (HCC) | results section. | + +--------+ + + + documented in this encounter Results MA DIGITAL MAMMO CRISTAL SCREEN LEFT WITH CAD (10/29/2017 11:36 AM PDT) + + | Specimen | + + | | + + + + + | Narrative | Performed At | + + + | Patient History: Patient has history of breast cancer at age 62. | [facility] | | Family history of breast cancer in maternal cousin at age 65. | RADIOLOGY | | Mastectomy of the right breast, March 2007. Last mammogram was | BREAST IMAGING | | performed 1 year ago. Reason for exam: history of breast cancer, | | | mastectomy. C50.911 Malignant neoplasm of unspecified site of | | | right female breast MA CRISTAL SCREEN LEFT W/CAD: October 29, 2017 - | | | CC and MLO view(s) were taken of the left breast. | | | Prior study comparison: October 23, 2016, MA CRISTAL DIAGNOSTIC LEFT | | | w/CAD performed at [facility]. October 10, | | | 2016, MA CRISTAL DIAGNOSTIC LEFT w/CAD performed at [facility] | | | [facility]. The breast tissue is heterogeneously dense. | | | This may lower the sensitivity of mammography. Status post right | | | breast mastectomy and stable left breast post reduction changes. No | | | suspicious calcifications, masses, or architectural distortion | | | present. The images were obtained using full field digital | | | mammography on the dedicated [employer] Expedition System with R2 CAD. Performed | | | at [facility]. 3D tomosynthesis | | | mammography was performed as part of this exam. ASSESSMENT: | | | Benign - Category 2 RECOMMENDATION: Routine screening mammogram | | | of the left breast in 1 year. I have personally reviewed the | | | images and, if necessary, edited the report. I agree with the report | | | as now presented. | | + + + + + | Procedure Note | + + | Service Account, Radiant Res In Interface - 10/29/2017 11:55 AM PDT Patient | | History:Patient has history of breast cancer at age 62.Family history of breast cancer | | in maternal cousin at age 65.Mastectomy of the right breast, March 2007.Last | | mammogram was performed 1 year ago.Reason for exam: history of breast cancer, | | mastectomy. C50.911 Malignant neoplasm of unspecified site of right female breastMA | | CRISTAL SCREEN LEFT W/CAD: October 29, 2017 - and MLO view(s) were | | taken of the left breast.Prior study comparison: October 23, 2016, MA CRISTAL DIAGNOSTIC LEFT | | w/CAD performed at [facility]. September, MA CRISTAL | | DIAGNOSTIC LEFT w/CAD performed at [facility].The breast tissue | | is heterogeneously dense. This may lower the sensitivity of mammography. Status post | | right breast mastectomy and stable left breast post reduction changes. No suspicious | | calcifications, masses, or architectural distortion present.The images were obtained | | using full field digital mammography on the dedicated [employer] System with R2 CAD. | | Performed at [facility]. 3D tomosynthesis mammography | | wasperformed as part of this exam.ASSESSMENT: Benign - Category 2RECOMMENDATION:Routine | | screening mammogram of the left breast in 1 year.I have personally reviewed the images | | and, if necessary, edited the report. I agree with the report as now presented. | |calcifications, masses, or architectural distortion present. | | | |The images were obtained using full field digital mammography on | |the dedicated [employer]na System with R2 CAD. Performed at [facility]. 3D tomosynthesis mammography was | |performed as part of this exam. | | | |ASSESSMENT: Benign - Category 2 | | | |RECOMMENDATION: | |Routine screening mammogram of the left breast in 1 year. | | | | | |I have personally reviewed the images and, if necessary, edited the report. I agree with t he report as now presented. | + + + +---------+ + + | Performing | Address | City/State/Zipcode | Phone Number | | Organization | | | | + +---------+ + + | [facility] | | | | | BREAST IMAGING | | | | + +---------+ + + documented in this encounter Visit Diagnoses + + | Diagnosis | + + | Malignant neoplasm of right female breast (HCC) Malignant neoplasm of breast | | (female), unspecified site | + + documented in this encounter"
--- OUTSIDE RECORDS SUMMARY | ~2020-05-04 | XMS | Encounter Summary ---
Demographics + + + | Address | [address] | | | [place] [address] | + + + | Home Phone | | + + + | Preferred Language | Unknown | + + + | Marital Status | | + + + | Buddhism Affiliation | CHR | + + + | Race | White | + + + | Ethnic Group | Not or | + + + Author + + + | Author | [facility] | + + + | Organization | [facility] | + + + | Address | Unknown | + + + | Phone | Unavailable | + + + Support + + + + + | Name | Relationship | Address | Phone | + + + + + | Gene Gee | ECON | [address] | | | | | [place], | | | | | [place] [address] | | + + + + + Care Team Providers + +------+ + | Care Cuff Runner Name | Role | Phone | + +------+ + | Antony Ribera MD | PCP | | + +------+ + Reason for Visit + + + | Reason | Comments | + + + | New patient | | | consultation | | + + + Consultation (Routine) +--------+--------+ + + + + | Status | Reason | Specialty | Diagnoses / | Referred By | Referred To | | | | | Procedures | Contact | Contact | +--------+--------+ + + + + | Closed | | Orthopedics | Diagnoses | Pommier, | David, | | | | | Right | MD Henri | Lambert Bustamante, | | | | | shoulder | [address] | ,PhD [address] | | | | | [address] | [address] | [address] | | | | | | [place], [place] | [place] | | | | | | [address] | Rd [place], | | | | | | Phone: | [place] | | | | | | [phone] | [address] | | | | | | Fax: | Phone: | | | | | | [phone] | [phone] | | | | | | | Fax: | | | | | | | [phone] | +--------+--------+ + + + + Encounter Details +--------+---------+ + + + | Date | Type | Department | Care Team | Description | +--------+---------+ + + + | 07/26/ | Office | Orthopaedics | Lambert Hernandez | Shoulder pain | | 2009 | Visit | [facility] [place] | MD Dianna,PhD [address] | (Primary Dx); | | | | for Health and | [facility] [address] | Bicipital tendinitis | | | | Healing [address] | [facility] [place] | | | | | [facility] for | [address] | | | | | Health and Healing, | [phone] | | | | | [facility] | | | | | | Floor [facility] [place] | | | | | | [address] | | | | | | [phone] | | | +--------+---------+ + + + [...] Blood Pressure | - | - | | + [...] + + + + | Weight | 65.8 kg (145 lb) | 07/26/2009 3:08 PM | | | | | PST | | + + + + + | Height | 167.6 cm (5' 6") | 07/26/2009 3:08 PM | | | | | PST | | + + + + + | Body Mass Index | 23.4 | 07/26/2009 3:08 PM | | | | | PST | | + + + + + documented in this encounter Progress Notes Lambert Hernandez MD,PhD - 07/26/2009 4:05 PM PSTFormatting of this note might be differ ent from the original. Adriana Flynn is a 63 y.o. right hand dominant female complaining of right shoulder pain an d aching/burning. Referred by for orthopedic consultation and evaluation. History of present complaint: First noticed: 3 years ago. Result of: gradual onset. Location: anterior. Pain: Average pain level 2 out of 10 at rest and 10/10 during maximal activity. The pain is characterized as varying with activity and burning. Symptoms are exacerbated by overhead activity and reaching forward. Symptoms improve with rest, ice and heat. Past Medical/Surgical history: Past medical and surgical history reviewed per patient intake form Treatments for injury/condition have included: extensive physical therapy medication . Family History/ Review of Systems: Family history reviewed per patient intake form. Ten point review of systems completed, pertinent positives include: heart disease and history of blood clots Current outpatient prescriptions prior to encounter Medication Sig Dispense Refill anastrozole (ARIMIDEX) 1 mg Oral Tablet Take 1 Tab by mouth once daily. 90 2 atenolol 25 mg Oral Tablet Take 25 mg by mouth once daily. budesonide (PULMICORT FLEXHALER) 180 mcg/Inhalation Inhalation Aerosol Powdr Breath Act ivated Inhale 1 Puff two times daily. 2 puffs in the am and 1 puff in the pm 90 day supply 4 calcium citrate-vitamin D (CITRACAL + D) 315-200 mg-unit Oral Tablet 2 tabs twice a day Docusate Sodium (STOOL SOFTENER) 100 mg Oral Capsule 1 pill by mouth 2 X per day DOFETILIDE 500 mcg Oral Capsule Take 1 Cap by mouth two times daily. 60 6 fluticasone (FLONASE) 50 mcg/Actuation Nasal [place], Suspension Instill 2 Sprays into ea ch nostril once daily. 90 day supply' 4 Glucosamine 1,000 mg Oral Tablet one daily MULTIVITAMIN OR one daily potassium chloride SR 20 mEq Oral Tab Sust.Rel. Particle/Crystal Take 1 Tab by mouth on ce daily. 90 4 PROTONIX 40 mg Oral Tablet, Delayed Release (E.C.) take 1 tablet (40mg) by oral route o nce daily, can take additional tablet in the night if needed 180 3 rosuvastatin (CRESTOR) 10 mg Oral Tablet Take 10 mg by mouth once daily. tiotropium (SPIRIVA WITH HANDIHALER) 18 mcg Inhalation Capsule, w/Inhalation Device Inh georgi 1 Cap once daily. 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 Physical Exam: Vital Signs: AA+O. Normal resting respiratory rate. BMI: Body mass index is 23.40 kg/(m^2). HEIGHT: Last 1 Encounter Ht Readings: Date Ht 07/26/2009 1.676 m (5' 6") WEIGHT: Last 1 Encounter Wt Readings: Date Wt 07/26/2009 65.772 kg (145 lb) Mental Status: Alert, awake, oriented and cooperative. Skin: clean and clear Observation: Within normal limits except as noted. Right Left Atrophy/Asymmetry Scapular Kinetics Generalized Laxity Motion: Within normal limits except as noted. Right Left Active Passive Active Passive Forward Flexion 170 170 External Rotation @ 0 deg 60 60 ER @ 90 deg ABD 90 90 IR @ 90 deg ABD 70 70 Abduction 160 160 Strength: Within normal limits except as noted. Right Left Supraspinatus 5 5 Infraspinatus 5 5 Subscapularis 5 5 Deltoid 5 5 Biceps 5 5 Testing: Within normal limits except as noted. Right Left Tenderness Sub acromial Impingement + Drop - Arm Neg Cross-chest Neg Clio's Stability: Within normal limits except as noted. Right Left Anterior Posterior Sulcus Cervical Spine: Within normal limits except as noted. Right Left Motion Tenderness C5 (Motor/Sensory) / / C6 / / C7 / / C8 / / T1 / / Other: Radiographs: Within normal limits except as noted. Mo/Yr Right Left X-rays 07/26/09 No significant degeneration. Vascular clips in axilla noted MR Diagnosis: symptomatic RC Tendinitis [726.10] Plan: Education and encouragement provided, Home exercise program recommended and Injection therapy recommended After a PARQ conference regarding this procedure, alternative, risks and an opportunity for questions is completed for a Subacromial injection. This was performed under sterile condit ions, via a standard approach, 10cc of fluid is injected comprised of 8cc Marcaine and 2cc o f Kenalog (40mg). No complications are encountered and a bandage is applied. Following a 5 m inute convalescence period, the patient describes 10% pain relief. Education and explanation regarding the underlying pathology is again provided as well as restrictions and recommenda tions. Lambert Hernandez M.D., Ph.D. Polysomnographic Technician, Surgical Bulb Packer Orthopedics & Cartilage Reconstruction Surgery Department of Orthopedics [email or web address] documented in this encounter Miscellaneous Notes Scan - Other, Faculty - 08/18/2009 12:56 PM PST documented in t his encounter Plan of Treatment + + +--------+ + + | Name | Type | Priori | Associated Diagnoses | Order Schedule | | | | ty | | | + + +--------+ + + | [place] DRAIN/INJECT | Procedures | Routin | Shoulder pain | Ordered: 07/26/2009 | | LARGE JOINT/BURSA | | e | Bicipital tendinitis | | + + +--------+ + + documented as of this encounter Results X-RAY SHOULDER 3+ VIEWS RIGHT (07/26/2009 2:54 PM PST) + + + + + + | Component | Value | Ref Range | Performed | Pathologist | | | | | At | Signature | + + + + + + | SHOULDER 3+ | STUDY: SHOULDER 3 VIEWS | | | | | VIEWS | RIGHT 07/26/09 14:54:00 | | | | | RIGHT | HISTORY: Pain | | | | | | COMPARISON: NONE | | | | | | DISCUSSION: The | | | | | | glenohumeral alignment | | | | | | is normal. The joint | | | | | | space is maintained. No | | | | | | fracture or focal | | | | | | osseous destruction is | | | | | | seen. | | | | | | Theacromioclavicular | | | | | | joint is normal. There | | | | | | are multiple surgical | | | | | | clipsnoted within the | | | | | | right axillary region. | | | | | | The soft tissues | | | | | | areotherwise normal. | | | | | | IMPRESSION: Normal right | | | | | | shoulder. I have | | | | | | personally viewed this | | | | | | procedure/exam and | | | | | | reviewed this report. | | | | | | Author: EDNA BRO, | | | | | | MDReviewer: EDNA BRO, | | | | | | STATUS FINAL / | | | | | | EDNA TONEY PENDING | | | | | | FINAL APPROVAL / Dr. BISHOP | | | | | | Ihsan TONEY | | | | | | PRELIMINARY - UNSIGNED / | | | | | | Dr. EDNA BRO | | | | + + + [...] + | Diagnosis | + + | Shoulder pain - Primary Pain in joint, shoulder region | + + | Bicipital tendinitis Bicipital tenosynovitis | + + documented in this encounter
--- OUTSIDE RECORDS SUMMARY | ~2020-05-04 | XMS | Encounter Summary ---
Demographics + + + | Address | [address] | | | [place] [address] | + + + | Home Phone [...] + | Gene Gee | ECON | [address] | | | | | [place], | | | | | [place] [address] | | + + + + + Care Team Providers + +------+ + | Care Machine Set Up Operator Name | Role | Phone | + +------+ + | Antony Ribera MD | PCP | | + +------+ + Reason for Visit + + + | Reason | Comments | + + + | Osteopenia | | + + + Office Visit [...] | Required | Metabolism | nodule | [address] | [address] [facility] | | | | | Disorder of | [address] | [place] | | | | | bone and | [place], [place] | [address] [place], | | | | | cartilage, | [address] | [place] | | | | | unspecified | Phone: | [address] | | | | | | [phone] | Phone: | | | | | | Fax: | [phone] | | | | | | [phone] | Fax: | | | | | | | [phone] | +--------+ + + + + + Encounter Details +--------+---------+ + + + | Date | Type | Department | Care Team | Description | +--------+---------+ + + + | 06/02/ | Office | [facility] | Tapan Horowitz MD | Disorder of bone and | | 2015 | Visit | [facility] | [address] [facility] | cartilage (Primary | | | | [facility] | [address] [place], | Dx); Thyroid nodule | | | | [address] | [place] [address] | | | | | [address] | [phone] | | | | | Physician's | | | | | | Pavilion, 1st floor | | | | | | [place], [place] | | | | | | [address] | | | | | | [phone] | | | +--------+---------+ + + + [...] | Tobacco Cessation: Counseling Given: Yes | | Comments: nonsmoker/parents smoked | + + [...] + + + | Blood Pressure | 118/60 | 06/02/2015 1:20 PM | | | | | PST | | + + + + + | Pulse | 66 | 06/02/2015 1:20 PM | | | | | PST | | + + + + + | Temperature | - | - | | + + + + + | Respiratory Rate | 12 | 06/02/2015 1:20 PM | | | | | PST | | + + + + + | Oxygen Saturation | - | - | | + + + + + | Inhaled Oxygen | - | - | | | Concentration | | | | + + + + + | Weight | 65.8 kg (145 lb) | 06/02/2015 1:20 PM | | | | | PST | | + + + + + | Height | 166.4 cm (5' 5.5") | 06/02/2015 1:20 PM | | | | | PST | | + + + + + | Body Mass Index | 23.76 | 06/02/2015 1:20 PM | | | | | PST | | + + + + + documented in this encounter Progress Notes Tapan Horowitz MD - 06/02/2015 1:27 PM PSTFormatting of this note might be different from michael tamez. Chief Complaint: Patient being seen in followup for the following issues: bone ROS Cardiovascular and pulmonary systems have been reviewed and switched form atenolol to metop rolol. History Smoking status Never Smoker Smokeless tobacco Never Used Comment: nonsmoker/parents smoked History Alcohol Use No S/ Interval History: no falls, fractures, kidney stones, dental problems, neck pain, dyspha deven since last visit in may 2013 Exam: Filed Vitals: 06/02/2015 1:20 PM Height: 1.664 m (5' 5.5") Weight: 65.772 kg (145 lb) BP: 118/60 Pulse: 66 Resp: 12 PainSc: 0 - Zero BMI: 23.75 kg/(m^2) Gen: NAD CV: Regular Eent: no thyroid nodules MS: no kyphosis Lungs: CTA Neuro: Alert and oriented x 3 A/P 1. Osteopenia: Last IV Reclast in 2010. Has done great since then with no fractures and imp roved bone density. No need for further infusion at present. Pt on calcium/vit d- check vit d level. Pt sees dentist regularly. 2. Thyroid: hx of sub-cm nodules. No nodules on exam and no neck symptoms. No further care needed. documented in this encou nter Plan of Treatment Not on filedocumented as of this encounter Procedures + +--------+ + + + | Procedure Name | Priori | Date/Time | Associated Diagnosis | Comments | | | ty | | | | + +--------+ + + + | BONE DENSITOMETRY | | 06/02/2015 | | Results for this | | [...] | + + + + + | [facility] | [address] | [place] [address] | | | SERVICES, SPECIAL | [address] | | | | IMM + COAG | | | | + + + + + BONE DENSITOMETRY (06/02/2015 12:00 AM PST) + + + | Narrative | Performed At | + + + | | | + + + documented in this encounter Visit Diagnoses + + | Diagnosis | + + | Disorder of bone and cartilage - Primary Disorder of bone and cartilage, unspecified | + + | Thyroid nodule Nontoxic uninodular goiter | + + documented in this encounter
--- OUTSIDE RECORDS SUMMARY | ~2020-05-04 | XMS | Encounter Summary ---
Demographics + + + | Address | [address] | | | [place] [address] | + + + | Home Phone [...] + | Gene Gee | ECON | [address] | | | | | [place], | | | | | [place] [address] | | + + + + + Care Team Providers + +------+ + | Care Hog Dropper Name | Role | Phone | + +------+ + | Antony Ribera MD | PCP | | + +------+ + Encounter Details +--------+------+ + + + | Date | Type | Department | Care Team | Description | +--------+------+ + + + | 01/14/ | Lab | [facility] at [facility] | | Obstructive airway | | 2009 | | [address] | | disease (HCC); | | | | [address] [facility] | | Osteopenia | | | | Pavilion, 3rd floor | | | | | | [place], [place] | | | | | | [address] | | | | | | [phone] | | | +--------+------+ + + + [...] + | VITAMIN D, | Routin | 01/14/2010 | Osteopenia | Results for this | | 25-HYDROXY, SERUM | e | 1:13 PM | | procedure are in the | | | | PDT | | results section. | + +--------+ + + + | COMPLETE METABOLIC | Routin | 01/14/2010 | Osteopenia | Results for this | | SET | e | 1:13 PM | | procedure are in the | | (NA,K,CL,CO2,BUN,CRE | | PDT | | results section. | | AT,GLUC,CA,AST,ALT,B | | | | | | DANICA TOTAL,ALK | | | | | | PHOS,ALB,PROT TOTAL) | | | | | + +--------+ + + + | IGE TOTAL, SERUM | Routin | 01/14/2010 | Obstructive airway | Results for this | | | e | 1:13 PM | disease (HCC) | procedure are in the | | | | PDT | | results section. | + +--------+ + + + | PHOSPHORUS, PLASMA | Routin | 01/14/2010 | Osteopenia | Results for this | | | e | 1:13 PM | | procedure are in the | | | | PDT | | results section. | + +--------+ + + + | MAGNESIUM, PLASMA | Routin | 01/14/2010 | Osteopenia | Results for this | | | e | 1:13 PM | | procedure are in the | | | | PDT | | results section. | + +--------+ + + + documented in this encounter Results VITAMIN D, 25-HYDROXY, SERUM (01/14/2010 1:13 PM PDT) + + + + + + | Component | Value | Ref Range | Performed | Pathologist | | | | | At | Signature | + + + + + + | VITAMIN D | 39Comment: REFERENCE | 30 - 80 ng/mL | | | | 25 HYDROXY | INTERVAL: Vitamin D, | | | | | | 25-Hydroxy This assay | | | | | | accurately quantifies | | | | | | the sum of vitamin | | | | | | D3,25-hydroxy and | | | | | | vitamin D2, 25-hydroxy. | | | | | | 0-17 years:Deficiency: | | | | | | less than 20 | | | | | | ng/mLOptimum level: | | | | | | greater than or equal to | | | | | | 20 ng/mL(Jean Carlos LEROY et | | | | | | al. Pediatrics 2008; | | | | | | 122: 1128-38.) 18 years | | | | | | and older:Deficiency: | | | | | | Less than 20 | | | | | | ng/mLInsufficiency: | | | | | | 20-29 ng/mLOptimum | | | | | | Level: 30-80 | | | | | | ng/mLPossible Toxicity: | | | | | | Greater than 150 | | | | | | ng/mLPerformed by [facility] | | | | | | [facility], | | | | | | | | | | | | [address], | | | | | | [place] [address] | | | | | | [phone] | | | | | | | | | | | | [email or web address], | | | | | | Lucinda Longoria MD - | | | | | | Lab. Director | | | | | | New reference range | | | | | | effective 08/31/09. | | | | + + + + + + + + | Specimen | + + | Blood - Blood | + + + + + + + | Performing | Address | City/State/Zipcode | Phone Number | | Organization | | | | + + + + + | [facility] | [address] | [place], [place] | | | [facility] | | [address] | | + + + + + PHOSPHORUS, PLASMA (01/14/2010 1:13 PM PDT) + +-------+ + + + | Component | Value | Ref Range | Performed | Pathologist | | | | | At | Signature | + +-------+ + + + | PHOSPHORUS, | 3.5 | 2.4 - 4.7 mg/dL | [facility] [...] + + + + | [facility] DEPARTMENT OF | [address] | [place] [address] | | | PATHOLOGY | [address] | | | + + + + + MAGNESIUM, PLASMA (01/14/2010 1:13 PM PDT) + +-------+ + + + | Component | Value | Ref Range | Performed | Pathologist | | | | | At | Signature | + +-------+ + + + | MAGNESIUM,P | 2.2 | 1.8 - 2.5 mg/dL | [facility] [...] | + + + + + | [facility] | [address] [facility] | [place] [address] | | | PATHOLOGY | [address] | | | + + + + + COMPLETE METABOLIC SET (NA,K,CL,CO2,BUN,CREAT,GLUC,CA,AST,ALT,BILI TOTAL,ALK PHOS,ALB,PROT TOTAL) (01/14/2010 1:13 PM PDT) + + + + + + | Component | Value | Ref Range | Performed | Pathologist | | | | | At | Signature | + + + + + + | GLUCOSE, | 79 | 60 - 99 mg/dL | [facility] [...] + + + + | CREATININE | 0.79 | 0.60 - 1.10 | [facility] | | | PLASMA | | mg/dL | DEPARTMENT | | | (LAB) | | | OF | | | | | | PATHOLOGY | | + + + + + + | TOTAL | 6.7 | 6.1 - 7.9 g/dL | [facility] | | | PROTEIN, | | | DEPARTMENT | | | PLASMA | | | OF | | | (LAB) | | | PATHOLOGY | | + + + + + + | ALBUMIN, | 3.8 | 3.5 - 4.7 g/dL | [facility] | | | PLASMA | | | DEPARTMENT | | | (LAB) | | | OF | | | | | | PATHOLOGY | | + + + + + + | CALCIUM, | 9.7 | 8.6 - 10.2 | [facility] | | | PLASMA | | mg/dL | DEPARTMENT | | | (LAB) | | | OF | | | | | | PATHOLOGY | | + + + + + + | BILIRUBIN | 0.7 | 0.3 - 1.2 mg/dL | [facility] | | | TOTAL | | | DEPARTMENT | | | | | | OF | | | | | | PATHOLOGY | | + + + + + + | ALK PHOS | 74 | 53 - 141 U/L | [facility] | | | | | | DEPARTMENT | | | | | | OF | | | | | | PATHOLOGY | | + + + + + + | AST(SGOT) | 25 | 15 - 41 U/L | [facility] | | | | | | DEPARTMENT | | | | | | OF | | | | | | PATHOLOGY | | + + + + + + | SODIUM, | 143 | 134 - 143 | [facility] | [...] + + + + | CHLORIDE, | 108 | 97 - 108 mmol/L | [facility] | | | PLASMA | | | DEPARTMENT | | | (LAB) | | | OF | | | | | | PATHOLOGY | | + + + + + + | TOTAL CO2, | 28 | 23 - 31 mmol/L | [facility] | | | PLASMA | | | DEPARTMENT | | | (LAB) | | | OF | | | | | | PATHOLOGY | | + + + + + + | ALT (SGPT) | 19 | 13 - 48 U/L | [facility] | | | | | | DEPARTMENT | | | | | | OF | | | | | | PATHOLOGY | | + + + + + + | EGFR | > 60 | >60 mL/min | [facility] | | | - | | | DEPARTMENT | | | [place] | | | OF | | | [...] | + + + + + | [facility] | [address] | [place] [address] | | | PATHOLOGY | [address] | | | + + + + + IGE, SERUM (01/14/2010 1:13 PM PDT) + +-------+ + + + | Component | Value | Ref Range | Performed | Pathologist | | | | | At | Signature | + +-------+ + + + | IGE TOTAL, | 13 | <121 kU/L | [facility] | | | SERUM | | | DEPARTMENT | | | [...] + + | [facility] DEPARTMENT OF | [address] | [place] [address] | | | PATHOLOGY | [address] | | | + + + + + documented in this encounter Visit Diagnoses + + | Diagnosis | + + | Obstructive airway disease (HCC) Chronic airway obstruction, not elsewhere classified | + + | Osteopenia Disorder of bone and cartilage, unspecified | + + documented in this encounter"
--- OUTSIDE RECORDS SUMMARY | ~2020-05-04 | XMS | Encounter Summary ---
Demographics + + + | Address | [address] | | | [place] [address] | + + + | Home Phone [...] + | Gene Gee | ECON | [address] | | | | | [place], | | | | | [place] [address] | | + + + + + Care Team Providers + +------+ + | Care Analysis Intern Name | Role | Phone | + +------+ + | Antony Ribera MD | PCP | | + +------+ + Reason for Visit + +--------+ + | Reason | Onset | Comments | | | Date | | + +--------+ + | Refill Request | 11/21/ | | | | 2007 | | + +--------+ + Encounter Details +--------+--------+ + + + | Date | Type | Department | Care Team | Description | +--------+--------+ + + + | 11/21/ | Refill | Cardiology General | Monique Middleton, | Refill Request | | 2007 | | at [facility] [address] | [address] [facility] | | | | | [facility] | | | | | | Health and Healing, | | | | | | [facility] | | | | | | Floor [place], [place] | | | | | | [address] | | | | | | [phone] | | | +--------+--------+ + + + [...]
--- OUTSIDE RECORDS SUMMARY | ~2020-05-04 | XMS | Encounter Summary ---
Demographics + + + | Address | [address] | | | [place] [address] | + + + | Home Phone [...] + + + | Author | [facility] | + + + | Organization | [facility] | + + + | Address | Unknown | + + + | Phone | Unavailable | + + + Support + + + + + | Name | Relationship | Address | Phone | + + + + + | Gene Gee | ECON | [address] | | | | | [place], | | | | | [place] [address] | | + + + + + Care Team Providers + +------+ + | Care Clinical Statistical Programmer Name | Role | Phone | + [...] Closed | | Radiology | Diagnoses | Sindy | Rad Ct Scan | | | | | Liver cyst | MD Katie | s [address] | | | | | Procedures | [address] | Dereck [address] | | | | | CT ABDOMEN | Anthony Lipscomb | [facility] | | | | | WWO IV | Rd | [facility], | | | | | CONTRAST | [place], [place] | [facility] Floor | | | | | | [address] | [place], [place] | | | | | | Phone: | [phone] | | | | | | [phone] | Phone: | | | | | | Fax: | [phone] | | | | | | [phone] | Fax: | | | | | | | [phone] | +--------+--------+ + + + + Encounter Details +--------+ + + + + | Date | Type | Department | Care Team | Description | +--------+ + + + + | 05/03/ | 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 | Liver Transplant | Katie Callahan MD | Liver cyst (Primary | | 2011 | | at [facility] [address] | [address] | Dx) | | | | [address] | [facility] [place], | | | | | Physician's | [place] [address] | | | | | Pavilion, 2nd floor | [phone] | | | | | [place], [place] | | | | | | [address] | | | | | | [phone] | | | +--------+ + + + [...] on filedocumented as of this encounter Results CT ABDOMEN WWO IV CONTRAST (05/03/2012 12:41 PM PDT) + + + + + + | Component | Value | Ref Range | Performed | Pathologist | | | | | At | Signature | + + + + + + | CT ABDOMEN | Unenhanced, arterial, | | | | | WWO | portal venous and 4 | | | | | CONTRAST | minute delayed coronal | | | | | | CTwith 100 cc IV Isovue. | | | | | | Comparison: 04/02/2008 | | | | | | History: Hepatic cysts, | | | | | | previous resection. | | | | | | FINDINGS: Lung bases are | | | | | | clear. Absent right | | | | | | breast from prior | | | | | | mastectomy.There are | | | | | | scattered simple and | | | | | | minimally complex | | | | | | hepatic cysts, a fewof | | | | | | which have increased in | | | | | | size, up to 3.5 cm in | | | | | | maximal | | | | | | diameter,previously 2 cm | | | | | | with some exhibiting | | | | | | thin septations and | | | | | | punctatecyst wall | | | | | | calcifications. Medial | | | | | | segment volume loss and | | | | | | scarringwith capsular | | | | | | retraction corresponds | | | | | | to prior cyst resection | | | | | | site.Hepatic dome linear | | | | | | bandlike scarring and | | | | | | lobulation of the | | | | | | livercontour represents | | | | | | additional wedge | | | | | | resection site. | | | | | | Scatterednonspecific | | | | | | subcentimeter peripheral | | | | | | and subcapsular low | | | | | | levelarterial phase | | | | | | enhancing foci, likely | | | | | | represent | | | | | | perfusionalabnormalities | | | | | | . No findings of | | | | | | underlying chronic liver | | | | | | disease.Mild ectasia of | | | | | | the central | | | | | | intrahepatic and | | | | | | extrahepatic duct | | | | | | tapersgradually at the | | | | | | ampulla. Gallbladder | | | | | | surgically | | | | | | absent.Uncomplicated | | | | | | pancreas divisum. | | | | | | Spleen and adrenal | | | | | | glands arenormal. Left | | | | | | upper pole wedge-shaped | | | | | | scarring in capsular | | | | | | retractionwith | | | | | | underlying focal | | | | | | caliectasis incidentally | | | | | | noted. No | | | | | | suspectcystic or solid | | | | | | renal mass. Left | | | | | | para-aortic prominent | | | | | | venouscollaterals drain | | | | | | into the IVC and | | | | | | appeared to communicate | | | | | | with theleft renal vein. | | | | | | There is no ascites or | | | | | | adenopathy. Visualized | | | | | | bowel is unremarkable. | | | | | | No suspicious osseous | | | | | | lesion. IMPRESSION: | | | | | | Scattered hepatic cysts, | | | | | | some showing interval | | | | | | enlargement over 4years, | | | | | | up to maximal diameter | | | | | | of 3.5 cm.. Attending | | | | | | Radiologists: Carol | | | | | | Declan SantosAuthor: Carol | | | | | | Declan Santos I have | | | | | | personally viewed this | | | | | | procedure/exam, reviewed | | | | | | this report,and made | | | | | | changes to it where | | | | | | appropriate. | | | | | | Final/Electronically | | | | | | signed / Carol Santos | | | | | | 05/03/2012 13:27 PM | | | | + + [...]
--- OUTSIDE RECORDS SUMMARY | ~2020-05-04 | XMS | Encounter Summary ---
Demographics + + + | Address | [address] | | | [place] [address] | + + + | Home Phone [...] + | Gene Gee | ECON | [address] | | | | | [place], | | | | | [place] [address] | | + + + + + Care Team Providers + +------+ + | Care Cash Posting Clerk Name | Role | Phone | + +------+ + | Antony Ribera MD | PCP | | + +------+ + Encounter Details +--------+ + + + + | Date | Type | Department | Care Team | Description | +--------+ + + + + | 09/17/ | Procedure - | Cardiology General | Silverio Fox | Cardiac Cath | | 2008 | | at [facility] [address] | MD Denny [address] | | | | Transcribed | [facility] for | [place], [place] | | | | | [facility], | [address] | | | | | [facility] | [phone] | | | | | Floor [place], [place] | | | | | | [address] | | | | | | [phone] | | | +--------+ + + + [...] documented as of this encounter Progress Notes Silverio Fox MD - 09/17/2008 12:00 AM PSTAssociated Order(s): CARDIAC CATH 0100 [id number] 09/17/2008 [id number] GEE Holman [id number] Patient Name: Lauren BAXTER Patient Data: Height 165 cm Weight 65.30 kg BSA 1.72 m2 Date of Procedure: September 17, 2008 : 1945 Performing Physician: Silverio Fox M.D. [employer] Trader, Medicine Associate Chief, Clinical Affairs Director, Cardiac Catheterization Laboratories Fellow: Lynn Ortiz M.D. Fellow Division of Cardiovascular Medicine Referring Physician: Monique Middleton R.N., A.N.P. Division of Cardiovascular Medicine cc: Navin Trimble M.D. Barrel Liner, Medicine PROCEDURES PERFORMED: Right heart catheterization. INDICATIONS FOR PROCEDURE: 1. Dyspnea. 2. Hypertension. 3. Sjogren syndrome. COMPLICATIONS: None. CLINICAL BRIEF: Lauren Baxter is a 63-year-old woman with Sjogren syndrome and dyspnea. Echocardiography has findings consistent with pulmonary hypertension. She is referred for right heart catheterization and a possible vasodilator study. PROCEDURE NOTES: Access: Right internal jugular vein, 8 Sammarinese sheath. Catheters: 7.5 Sammarinese VIP [place]-Felisha thermodilution catheter. MEDICATIONS: Fentanyl 25 mcg Midazolam 1 mg FLUOROSCOPY TIME: 1.10 minutes FLUOROSCOPY DAP: 130 cGy cm2 RIGHT HEART CATHETERIZATION: Right heart catheterization was performed via an 8 Sammarinese right internal jugular sheath, which was inserted under fluoroscopic guidance. Initially, a 4 Sammarinese micropuncture set was used to establish access. The 4 Sammarinese sheath was exchanged over a wire for the 8 Sammarinese sheath. A 7.5 Sammarinese VIP [place]-Felisha thermodilution catheter was advanced from the right internal jugular vein to the superior vena cava, right atrium, right ventricle, pulmonary artery and pulmonary capillary wedge position. Cardiac output was determined by Lionel and thermodilution principles. PRESSURES RA a 4 v 4 m 3 RV 28/5 mmHg PA 28/10 mmHg m 18 PCWP a 10 v 9 m 8 Central aorta 127/69 mmHg m 95 (measured noninvasively) HEART RATE 80 beats per minute, sinus rhythm CARDIAC OUTPUT* Lionel 3.88 L/min Thermodilution 5.47 L/min CARDIAC INDEX* Lionel 2.26 L/min/m2 Thermodilution 3.18 L/min/m2 * utilizing an assumed VO2 of 167.12 mL/min. SATURATIONS PA 75.0% FA 99.0% Hemoglobin 13.2 gm/dL RESISTANCES PVR by TD CO 1.8 Wood units PVR by Lionel CO 2.6 Wood units CONCLUSIONS: Normal resting intracardiac pressures without evidence of pulmonary hypertension at rest. ATTENDING SURGEON'S ATTESTATION: I certify that I was present for the witt elements of the procedure and participated directly in the generation of this report. Silverio Fox M.D. [employer] Trader, Medicine Associate Chief, Clinical Affairs Director, Cardiac Catheterization Laboratories REMA/randy A [id number] cc: documented in th is encounter Plan of Treatment Not on filedocumented as of this encounter Procedures + +--------+ + + + | Procedure Name | Priori | Date/Time | Associated Diagnosis | Comments | | | ty | | | | + +--------+ + + + | CARDIAC CATH | | 09/17/2008 | | Results for this | | | | 12:00 AM | | procedure are in the | | | | PST | | results section. | + +--------+ + + + documented in this encounter Results CARDIAC CATH (09/17/2008 12:00 AM PST) + + + | Narrative | Performed At | + + + | [id number] | | | 09/17/2008 [id number] GEE | | | LAUREN Holman [id number] Patient Name: | | | Lauren BAXTER Patient Data: | | | Height 165 cm Weight 65.30 kg | | | BSA 1.72 m2 Date | | | of Procedure: September 17, 2008 MRN: | | | [id number] : | | | 1945 Performing Physician: Silverio Fox, | | | Declan [employer] Trader, | | | Medicine Associate Chief, | | | Clinical Affairs Director, | | | Cardiac Catheterization Laboratories Fellow: | | | Lynn Ortiz M.D. | | | Fellow Division of | | | Cardiovascular Medicine Referring Physician: Monique | | | Mitul Middleton, A.N.P. | | | Division of Cardiovascular Medicine cc: | | | Navin Trimble M.D. | | | Barrel Liner, Medicine PROCEDURES PERFORMED: Right | | | heart catheterization. INDICATIONS FOR PROCEDURE: 1. Dyspnea. | | | 2. Hypertension. 3. Sjogren syndrome. COMPLICATIONS: None. | | | CLINICAL BRIEF: Lauren Baxter is a 63-year-old woman with | | | Sjogren syndrome and dyspnea. Echocardiography has findings | | | consistent with pulmonary hypertension. She is referred for right | | | heart catheterization and a possible vasodilator study. | | | PROCEDURE NOTES: Access: Right internal jugular vein, 8 Sammarinese | | | sheath. Catheters: 7.5 Sammarinese VIP [place]-Felisha thermodilution catheter. | | | MEDICATIONS: Fentanyl 25 mcg | | | Midazolam 1 mg FLUOROSCOPY TIME: | | | 1.10 minutes FLUOROSCOPY DAP: 130 cGy cm2 | | | RIGHT HEART CATHETERIZATION: Right heart catheterization was | | | performed via an 8 Sammarinese right internal jugular sheath, which was | | | inserted under fluoroscopic guidance. Initially, a 4 Sammarinese | | | micropuncture set was used to establish access. The 4 Sammarinese sheath | | | was exchanged over a wire for the 8 Sammarinese sheath. A 7.5 Sammarinese VIP | | | [place]-Felisha thermodilution catheter was advanced from the right | | | internal jugular vein to the superior vena cava, right atrium, right | | | ventricle, pulmonary artery and pulmonary capillary wedge position. | | | Cardiac output was determined by Lionel and thermodilution | | | principles. PRESSURES RA a | | | 4 v 4 m 3 RV 28/5 mmHg PA | | | 28/10 mmHg m 18 PCWP | | | a 10 v 9 m 8 Central aorta 127/69 | | | mmHg m 95 (measured noninvasively) HEART RATE | | | 80 beats per minute, sinus rhythm CARDIAC OUTPUT* Lionel | | | 3.88 L/min Thermodilution | | | 5.47 L/min CARDIAC INDEX* Lionel | | | 2.26 L/min/m2 Thermodilution 3.18 L/min/m2 | | | * utilizing an assumed VO2 of 167.12 mL/min. SATURATIONS | | | PA 75.0% FA | | | 99.0% Hemoglobin 13.2 | | | gm/dL RESISTANCES PVR by TD CO 1.8 Wood | | | units PVR by Lionel CO 2.6 Wood units | | | CONCLUSIONS: Normal resting intracardiac pressures without evidence | | | of pulmonary hypertension at rest. ATTENDING SURGEON'S | | | ATTESTATION: I certify that I was present for the witt elements of the | | | procedure and participated directly in the generation of this | | | report. Silverio Fox M.D. Associate | | | Professor, Medicine Associate Chief, Clinical Affairs Director, | | | Cardiac Catheterization Laboratories | | | JEDianna/ljp A [id number] cc: | | | | | + + + + + | Procedure Note | + + | Silverio Fox MD - 09/17/2008 12:00 AM PST [id number] | | 09/17/2008 [id number] GEE AGUILAR | | J [id number] Patient Name: Lauren BAXTER Patient Data: | | Height 165 cm Weight 65.30 kg | | BSA 1.72 m2 Date of Procedure: September 17, 2008 MRN: | | [id number] : 1945 Performing Physician: Silverio Arteaga | | Declan Fox [employer] Trader, Medicine | | Associate Chief, Clinical Affairs Director, Cardiac | | Catheterization Laboratories Fellow: Lynn Ortiz M.D. | | Fellow Division of Cardiovascular Medicine | | Referring Physician: Monique Middleton R.N., A.N.P. Division | | of Cardiovascular Medicine cc: Navin Trimble M.D. | | Barrel Liner, Medicine PROCEDURES PERFORMED:Right heart | | catheterization. INDICATIONS FOR PROCEDURE:1. Dyspnea.2. Hypertension.3. Sjogren | | syndrome. COMPLICATIONS:None. CLINICAL BRIEF:Lauren Baxter is a 63-year-old woman | | with Sjogren syndrome and dyspnea.Echocardiography has findings consistent with | | pulmonary hypertension. Sheis referred for right heart catheterization and a possible | | vasodilatorstudy. PROCEDURE NOTES:Access: Right internal jugular vein, 8 Sammarinese | | sheath.Catheters: 7.5 Sammarinese VIP [place]-Felisha thermodilution catheter. MEDICATIONS: | | Fentanyl 25 mcg Midazolam 1 mg FLUOROSCOPY TIME: | | 1.10 minutesFLUOROSCOPY DAP: 130 cGy cm2 RIGHT HEART CATHETERIZATION:Right | | heart catheterization was performed via an 8 Sammarinese right internaljugular sheath, which | | was inserted under fluoroscopic guidance. Initially,a 4 Sammarinese micropuncture set was | | used to establish access. The 4 Frenchsheath was exchanged over a wire for the 8 Sammarinese | | sheath. A 7.5 Sammarinese [place]-Felisha thermodilution catheter was advanced from the right | | internaljugular vein to the superior vena cava, right atrium, right ventricle,pulmonary | | artery and pulmonary capillary wedge position. Cardiac output wasdetermined by Lionel and | | thermodilution principles. PRESSURESRA a 4 v 4 m 3RV | | 28/5 mmHgPA 28/10 mmHg m 18PCWP | | a 10 v 9 m 8Central aorta 127/69 mmHg m 95 (measured noninvasively) HEART | | RATE 80 beats per minute, sinus rhythm CARDIAC OUTPUT*Lionel | | 3.88 L/minThermodilution 5.47 L/min CARDIAC INDEX*Lionel | | 2.26 L/min/[id number] 3.18 L/min/m2 * utilizing an assumed VO2 | | of 167.12 mL/min. SATURATIONSPA 75.0%FA | | 99.0% Hemoglobin 13.2 gm/dL RESISTANCESPVR by TD CO 1.8 | | Wood unitsPVR by Lionel CO 2.6 Wood units CONCLUSIONS:Normal resting | | intracardiac pressures without evidence of pulmonaryhypertension at rest. ATTENDING | | SURGEON'S ATTESTATION:I certify that I was present for the witt elements of the procedure | | andparticipated directly in the generation of this report. Silverio Fox, | | DeclanBank And Savings Securities Trader, MedicineAssociate Chief, Clinical AffairsDirector, Cardiac | | Catheterization Laboratories [facility]/matthieupD: 09/17/2008T: 09/18/2008 8:14 [id number] | | cc: | |PROCEDURES PERFORMED: | |Right heart catheterization. | | | | | |INDICATIONS FOR PROCEDURE: | |1. Dyspnea. | |2. Hypertension. | |3. Sjogren syndrome. | | | | | |COMPLICATIONS: | |None. | | | | | |CLINICAL BRIEF: | |Lauren Baxter is a 63-year-old woman with Sjogren syndrome and dyspnea. | |Echocardiography has findings consistent with pulmonary hypertension. She | |is referred for right heart catheterization and a possible vasodilator | |study. | | | | | |PROCEDURE NOTES: | |Access: Right internal jugular vein, 8 Sammarinese sheath. | |Catheters: 7.5 Sammarinese VIP [place]-Felisha thermodilution catheter. | | | | | |MEDICATIONS: Fentanyl 25 mcg | | Midazolam 1 mg | | | | | |FLUOROSCOPY TIME: 1.10 minutes | |FLUOROSCOPY DAP: 130 cGy cm2 | | | | | |RIGHT HEART CATHETERIZATION: | |Right heart catheterization was performed via an 8 Sammarinese right internal | |jugular sheath, which was inserted under fluoroscopic guidance. Initially, | |a 4 Sammarinese micropuncture set was used to establish access. The 4 Sammarinese | |sheath was exchanged over a wire for the 8 Sammarinese sheath. A 7.5 Sammarinese VIP | |[place]-Felisha thermodilution catheter was advanced from the right internal | |jugular vein to the superior vena cava, right atrium, right ventricle, | |pulmonary artery and pulmonary capillary wedge position. Cardiac output was | |determined by Lionel and thermodilution principles. | | | | | |PRESSURES | |RA a 4 v 4 m 3 | |RV 28/5 mmHg | |PA 28/10 mmHg m 18 | |PCWP a 10 v 9 m 8 | |Central aorta 127/69 mmHg m 95 (measured noninvasively) | | | | | |HEART RATE 80 beats per minute, sinus rhythm | | | | | |CARDIAC OUTPUT* | |Lionel 3.88 L/min | |Thermodilution 5.47 L/min | | | | | |CARDIAC INDEX* | |Lionel 2.26 L/min/m2 | |Thermodilution 3.18 L/min/m2 | | | | | |* utilizing an assumed VO2 of 167.12 mL/min. | | | | | |SATURATIONS | |PA 75.0% | |FA 99.0% | | | | | |Hemoglobin 13.2 gm/dL | | | | | |RESISTANCES | |PVR by TD CO 1.8 Wood units | |PVR by Lionel CO 2.6 Wood units | | | | | |CONCLUSIONS: | |Normal resting intracardiac pressures without evidence of pulmonary | |hypertension at rest. | | | | | |ATTENDING SURGEON'S ATTESTATION: | |I certify that I was present for the witt elements of the procedure and | |participated directly in the generation of this report. | | | | | | | | | | | | | |Silverio Fox M.D. | |[employer] Savings [employer] Trader, Medicine | |Associate Chief, Clinical Affairs | |Director, Cardiac Catheterization Laboratories | | | | | | | | | | | | | | | | | | | | | |REMA/randy | | | | A | |[id number] | | | | | |cc: | | | | | | | | | + + documented in this encounter Visit Diagnoses Not on filedocumented in this encounter"
--- OUTSIDE RECORDS SUMMARY | ~2020-05-04 | XMS | Encounter Summary ---
Demographics + + + | Address | [address] | | | [place] [address] | + + + | Home Phone | | + + + | Preferred Language | Unknown | + + + | Marital Status | | + + + | Denominational Affiliation | CHR | + + + [...] + | Gene Gee | ECON | [address] | | | | | [place], | | | | | [place] [address] | | + + + + + Care Team Providers + +------+ + | Care Manager Architectural Name | Role | Phone | + [...] | | | Lung nodule | MD Gale | [address] | | | | | Procedures | [address] | Dereck Cruz | | | | | CT CHEST | Anthony Lipscomb | Deisi Naqvi [facility] | | | | | WO CONTRAST | Rd | [facility], | | | | | | [place], [place] | [facility] Floor | | | | | | [address] | [place], [place] | | | | | | Phone: | [address] | | | | | | [phone] | Phone: | | | | | | Fax: | [phone] | | | | | | [phone] | Fax: | | | | | | | [phone] | +--------+--------+ + + + + Reason for Visit + + + | Reason | Comments | + + + | Follow-up visit | one year f/u PE | + + + Encounter Details +--------+---------+ + + + | Date | Type | Department | Care Team | Description | +--------+---------+ + + + | 05/03/ | Office | Pulmonary & | Sergio Desai | Asthma; | | 2009 | Visit | Critical Care | MD Dianna | Lung nodule | | | | Medicine at | | | | | | [facility] | | | | | | [address] | | | | | | [facility] | | | | | | [facility], [address] [place] [address] | | | | | | [place], [place] | | | | | | [address] | | | | | | [phone] | | | +--------+---------+ + + + [...] + + + | Blood Pressure | 98/62 | 05/03/2010 1:43 PM | | | | | PDT | | + + + + + | Pulse | 68 | 05/03/2010 1:43 PM | | | | | PDT | | + + + + + | Temperature | 36.9 C (98.5 F) | 05/03/2010 1:43 PM | | | | | PDT | | + + + + + | Respiratory Rate | 12 | 05/03/2010 1:43 PM | | | | | PDT | | + + + + + | Oxygen Saturation | 99% | 05/03/2010 1:43 PM | | | | | PDT | | + + + + + | Inhaled Oxygen | - | - | | | Concentration | | | | + + + + + | Weight | 66.2 kg (146 lb) | 05/03/2010 1:43 PM | | | | | PDT | | + + + + + | Height | 167.6 cm (5' 6") | 05/03/2010 1:43 PM | | | | | PDT | | + + + + + | Body Mass Index | 23.57 | 05/03/2010 1:43 PM | | | | | PDT | | + + + + + documented in this encounter Progress Notes Gale Pérez MD - 05/06/2010 5:22 PM PDT Addended by: GALE PÉREZ MD on: 05/06/2010 Modules accepted: Level of Service ale Pérez MD - 5:17 PM PDTI have seen patient and with Dr. Desai. I agree with plans. We are following for obstructive lung disease and RUL nodule. She is most active cycling 30 minutes, uses a graduate assistant athletic trainer, and stacks wood. She has no nocturnal complaints and uses rare albuterol. She takes Spiriva one DAILY, Pulmicort 2 BID. She feels no help with Spiriv a. No ED visits nor hospitalizations. Exam unremarkable. Chest CT compare 16 months ago esvin ws same RUL nodule and a smaller one. Report indicates a new ML nodule, 3mm ( hard for me to see). Regarding obstructive lung disease, she is most active and can try stop Spiriva and maintai n Symbicort- can always restart if breakthrough. Regarding nodules on chest CT, 2 are stable and other one small. It is difficult to be definitive how to move forward with nodules <5 m m. In this lady with previous breast cancer, should repeat chest CT/no contrast in 6 months or so once again. edSergio blum MD - 05/04/2010 6:13 PM PDTFormatting of this note might be different from zachariah garcía original. Date: 05/04/2010 Primary Care Provider: Latosha Ribera MD [facility] [address], [address] [place] [address] Problem List: 1. Asthma -- on inhaled Pulmicort 2 puffs twice daily -- on Spiriva instead of long acting beta agonist due to episodes of SVT associated with be ta-agonist use 2. Sub 5 mm lung nodules in RUL on chest CT in 09/2008 3. Pulmonary embolism, identified on CTA 09/17/08, s/p warfarin x 6 months 4. Sjogren's syndrome 5. GERD 6. Chronic rhino-sinusitis 7. History of breast cancer (dx 02/19, [id number] s/p mastectomy & chemo, on Arimidex) 8. Mitral valve prolapse 9. Supraventricular tachycardia, on dofetilide Subjective: The patient is a 63 y/o female with a history of breast cancer, Sjogren's, GERD, chronic rh inosinusitis and asthma who presents to clinic for routine follow up evaluation. According to the patient she is doing well and states that she actually feels better and more like her self then she has in years with increased energy and exercise capacity. She reports that he r asthma is well controlled, although she has noticed occasional coughing and dyspnea, which is typical for her in the fall months. Does not have experience asthma symptoms. No noctur nal asthma symptoms. No albuterol rescue inhaler use. No activity limitations. No sputum pr oduction or hemoptysis. Is currently using Pulmicort 2 puffs twice daily and Spiriva once da yin. She reports that she occasionally forgets to use the Spiriva and does not notice any ch steve in her respiratory status. Regularly rinses her mouth after using the Pulmicort. No ER visits or unscheduled clinic visits due to respiratory symptoms. She reports regular exercise and activity. Is using the stationary bicycle for 30 minutes on a daily basis and lifting weights with a graduate assistant athletic trainer 2-3 times per week. In [facility] she is attending a stretching class once a week. 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 No recent cold or flu like illnesses. No fevers or chills. No lower extremity edema. Received an influenza vaccine last month in March of this year. Review of systems: As above. All other systems negative or unchanged from previous visit. Past Social and Family History: No significant changes since last visit. Current Medications: anastrozole (ARIMIDEX) 1 mg Oral Tablet, Take 1 Tab by mouth once daily. atenolol 50 mg Oral Tablet, Take 25 mg by mouth two times daily. 1/2 tablet twice daily budesonide (PULMICORT FLEXHALER) 180 mcg/Inhalation Inhalation Aerosol [facility] Activat ed, Inhale 2 Puff two times daily. calcium citrate-vitamin D (CITRACAL + D) 315-200 mg-unit Oral Tablet, 2 tabs in evening / l iquid calcium citrate in AM DOFETILIDE 500 mcg Oral Capsule, Take 1 Cap by mouth two times daily. fluticasone (FLONASE) 50 mcg/Actuation Nasal [place], Suspension, Instill 2 Sprays into each nostril [...] 20 mg by mouth once d aily. Twice daily tiotropium (SPIRIVA WITH HANDIHALER) 18 mcg Inhalation Capsule, w/Inhalation Device, Inhale 1 Cap once daily. tramadol (ULTRAM) 50 mg Oral Tablet, Take 1 Tab by mouth every six hours as needed for mode rate pain. Vitamin A-Vitamin C-Vit E-Min (ANTIOXIDANT FORMULA) Oral Capsule, take 1 capsule by oral ro [place] once daily with food VITAMIN D ORAL, 2000 IU daily zoledronic acid (RECLAST) 5 mg/100 mL Intravenous Solution, Inject into the vein (IV). John arizmendi Vitals Item Reading BP 98/62 Pulse 68 Temp (Src) 36.9 C (98.5 F) (Oral) RR 12 Ht 1.676 m (5' 6") Wt 66.225 kg (146 lb) SpO2 99% on room air BMI 23.56 kg/(m^2) Physical Exam: General: Pleasant healthy appearing female in no distress. SHANON: Normocephalic, PERRLA, EOMI, external ears without lesions. Throat: No erythema, exudate, or tonsillar enlargement. Neck: No evidence of elevated jugular veins or lymphadenopathy. Lungs: Clear to auscultation bilaterally, no wheezes, rhonchi or crackles. Cardiac: Regular rate & rhythm. No murmur. Extremities: Warm & well perfused. No clubbing, cyanosis or edema. Musculoskeletal: No obvious joint deformities noted. Neurologic: Exam grossly non-focal. Skin: No evidence of rash or skin changes. Radiology: CT CHEST WO CONTRAST 05/03/2010 Comparison: 12/28/08, 09/17/08. Findings: There is no pleural or pericardial effusion. The heart size is normal. Surgical changes a re seen from prior right mastectomy and axillary lymph node dissection. No pathologically e nlarged axillary, mediastinal, or hilar lymph node is identified. A 3 mm nodule is again se en along the minor fissure (image 53), unchanged since 09/17/08. An additional 2-mm nodule is present along the minor fissure (image 51); retrospectively, this was present on the patien t's prior studies and appears unchanged. A new peripheral 3-mm nodule is identified in the right middle lobe (image 80). Mild scarring is present at the right lung base, unchanged. The lungs are otherwise clear. Within the visualized upper abdomen, multiple hepatic cysts are again seen. The gallbladde r is surgically absent. The remainder of the visualized upper abdomen is normal. No osseous abnormality is identified. Pulmonary Function Tests: FEV1/FVC=64 FEV1=2.14 (84%) FVC=3.37 (101%) FVC% [id number] Assessment/Plan: The patient is a 63 y/o female with a history of breast cancer, Sjogren's, GERD, chronic rh inosinusitis and asthma who presents to clinic for routine follow up evaluation. At the pre sent time consider her asthma to be well controlled and believe that a trial of step down th erapy is warranted; discussed this idea with the patient who indicated that she would be int erested in seeing how her asthma does off the Spiriva with the plan to resume the inhaler if she notices any decline in her respiratory status or increase in her asthma symptoms. 1. Asthma -- continue budesonide at current dose of 2 puffs twice daily ... Reminded patient to rinse mouth & gargle after use -- trial off tiotropium ... patient to restart if asthma symptoms recur/worsen and send not e via [employer] -- albuterol rescue inhaler as needed -- continue H2 efren and PPI therapy for GERD -- continue flonase for sinus disease 2. Lung Nodules -- stable 3 mm and 2 mm nodules in right upper lobe x 18+ months, no further follow up germain cated -- new 3 mm nodule in right middle lobe on most recent chest CT -- will need follow up chest CT in for new nodule in 12-18 months Patient to return to clinic in 1 year or sooner if problems arise. The patient was evaluated and discussed with attending physician Dr. Pérez who agrees with the above assessment and plan. Dr. Pérez and I spent a total of 45 minutes with the patie nt, over half of which were devoted to counseling. SERGIO DESAI MD PULMONARY/CRITICAL CARE FELLOW [facility] [address] [facility] Mailcode: [id number] [address] documented in thi s encounter Miscellaneous Notes Scan - Other, Faculty - 11/15/2010 12:00 AM PDT can - Other, Faculty - 06/20/2010 3:14 PM PST documented in this encou nter Plan of Treatment Not on filedocumented as of this encounter Results CT CHEST WO CONTRAST (05/03/2010 3:07 PM PDT) + + + + + + | Component | Value | Ref Range | Performed | Pathologist | | | | | At | Signature | + + + + + + | CT CHEST WO | CT chest without | | | | | CONTRAST | contrast, | | | | | | Comparison: [...] NOEL | | | | | | DENATATUS FINAL / | | | | | | SADIE LLANSO | | | | | | PRELIMINARY [...] | Asthma Unspecified asthma | + + | Lung nodule Other diseases of lung, not elsewhere classified | + + documented in this encounter
--- OUTSIDE RECORDS SUMMARY | ~2020-05-04 | XMS | Encounter Summary ---
Demographics + + + | Address | [address] | | | [place] [address] | + + + | Home Phone | | + + + | Preferred Language | Unknown | + + + | Marital Status | | + + + | Faith Affiliation | 1013 | + + + | Race | White | + + + | Ethnic Group | Not or | + + + Author + + + | Author | [facility] | | | and [place] | + + + | Organization | [facility] | | | [...] Team Providers + +------+ + | Care Torch Cutter Name | Role | Phone | + +------+ + | Alec Hill MD | PCP | | + +------+ + Encounter Details +--------+ + + + + | Date | Type | Department | Care Team | Description | +--------+ + + + + | 05/20/ | Orders Only | [facility] | Martin Kelley, | | | 2017 | | CARDIOLOGY ELIZA | [address] | | | | | [address] | [place], | | | | | [place] | [place] [address] | | | | | [address] | [phone] | | | | | [phone] | | | +--------+ + + + [...] 2019 | Visit | | MD Shay [address] | | | | | | [place] [address] | | | | | | [phone] | | | | | | | | +--------+ + + + + | 05/19/ | Appointment | Cardiology | Martin Kelley, | | | 2019 | | | MD [address] | | | | | | [place] | | | | | | [place] [address] | | | | | | [phone] | | | | | | | | +--------+ + + + + | 11/26/ | Office | Cardiology | Martin Kelley, | | | 2020 | Visit | | MD [address] | | | | | | [place] | | | | | | [place] [address] | | | | | | [phone] | | | | | | | | +--------+ + + + + documented as of this encounter Visit Diagnoses Not on filedocumented in this encounter"
--- OUTSIDE RECORDS SUMMARY | ~2020-05-04 | XMS | Encounter Summary ---
Demographics + + + | Address | [address] | | | [place] [address] | + + + | Home Phone [...] + | Gene Gee | ECON | [address] | | | | | [place], | | | | | [place] [address] | | + + + + + Care Team Providers + +------+ + | Care Pit Steward Name | Role | Phone | + +------+ + | Alec Hill MD | PCP | | + +------+ + Reason for Visit + +--------+ + | Reason | Onset | Comments | | | Date | | + +--------+ + | Heart rate fast | 08/05/ | racing up to 120 bpm | | | 2014 | | + +--------+ + Encounter Details +--------+ + + + + | Date | Type | Department | Care Team | Description | +--------+ + + + + | 08/05/ | Telephone | Cardiology | Gary Fuentes MD | Heart rate fast | | 2014 | | Arrhythmia at [facility] | [address] | (racing up to 120 | | | | [address] | [address] [address] [place], | bpm) | | | | [facility] | [place] [address] | | | | | and [place], | [phone] | | | | | [facility] | | | | | | [place], [place] | | | | | | [address] | | | | | | [phone] | | | +--------+ + + + [...] Telephone Encounter - Mayra Chapman RN - 08/05/2014 9:34 AM PSTPlan per 07/27/14 OV n ote - "Impression: 68 y.o. female with a history of atrial tachycardia and two prior EP stud ies who has had frequent palpitations and documented brief runs of atrial ectopy. Some of he r symptoms may be stress related. For now, she can use prn extra Atenolol. If she continues to have a high arrhythmia burden, we will plan a repeat EP study and possible ablation. Con tinue atenolol 50 mg BID, dofetilide 500 mcg BID, Can take Atenolol 25 mg prn palpitations, follow up in 6 months." I called pt. Her HR is now normal - 9:20am 114/68, HR 59, she is feeling fine. Fast rate started around 3am, woke up to use bathroom and noticed the racing when getting back into be d. She took her atenolol 50mg AM dose at that time. See her Purveyour message for interim BP /HR readings. Took her usual dofetilide 500mcg AM dose and converted around 9am. Prior to this episode, last significant episode was about a month ago. She has small episodes daily that are not as bothersome. She asks if she needs to go to hospital (lives in [place]) or if she can do her usual activities today. We discussed that as she is feeling well with normal HR/BP readings at this time, no indica tion for emergent evaluation at hospital. We discussed that she can do her usual activities today if she feels up to it. We discussed that she can use PRN atenolol for these episodes and I suggested she take the add'l 25mg today if recurrence in fast rhythms. I encouraged her to notify us when she has an episode like this and to let us know when she feels they ar e sufficiently frequent and bothersome to warrant a repeat EP study. She agrees and feels c omfortable with this plan. Routed to Dr. Fuentes. elephone Encounter - Alea Montez - 08/05/2014 8:43 AM PSTForma tting of this note might be different from the original. Reason for Call: Heart rate fast - racing up to 120 bpm Patient: Adriana Flynn Patient Contact Numbers: Home Phone Work Phone Message: Description of reason for call: Adriana calling, she had another episode of her heart racing. This morning at 3am her heart was racing up to 120 bpm and her BP was 147/104. She rested. At 6am she took Tikosyn and her BP is back to normal, but her heart rate is still 116. Troy garcía call her and advise. Thank you Last Visit: 07/27/14 at 11:30 am Next Visit: Next Appointment in [facility] is on 01/11/15 at 11:30 am with Gary Fuentes MD. documented in this encounter Plan of Treatment Not on filedocumented as of this encounter Visit Diagnoses Not on filedocumented in this encounter
--- OUTSIDE RECORDS SUMMARY | ~2020-05-04 | XMS | Encounter Summary ---
Demographics + + + | Address | [address] | | | [place] [address] | + + + | Home Phone [...] Team Providers + +------+ + | Care Air Conditioning Insulation Installer Name | Role | Phone | + +------+ + PCP | Unavailable | + +------+ + Encounter Details +--------+ + + + + | Date | Type | Department | Care Team | Description | +--------+ + + + + | 11/25/ | Hospital | [facility] | Jorden Mirza, | | | 2002 - | Encounter | [facility] | [address] [place] [address] | | | | | [address] | [place] | | | 11/29/ | | [place] [address] | [address] | | | 2002 | | [phone] | | | +--------+ + + + [...] | | | | | [place] [address] | | | | | | [phone] | | | | | | | | +--------+ + + + + | 05/19/ | Appointment | Cardiology | Martin Kelley, | | 2019 | | | MD [address] | | | | | | [place], | | | | | | [place] [address] | | | | | | [phone] | | | | | | | | +--------+ + + + + | 11/26/ | Office | Cardiology | Martin Kelley, | | | 2020 | Visit | | MD [address] | | | | | | [place], | | | | | | [place] [address] | | | | | | [phone] | | | | | | | | +--------+ + + + + documented as of this encounter Visit Diagnoses Not on filedocumented in this encounter"
--- OUTSIDE RECORDS SUMMARY | ~2020-05-04 | XMS | Encounter Summary ---
Demographics + + + | Address | [address] | | | [place] [address] | + + + | Home Phone | | + + + | Preferred Language | Unknown | + + + | Marital Status | | + + + | Restoration Affiliation | CHR | + + + | Race | White | + + + | Ethnic Group | Not or | + + + Author + + + | Author | [facility] | + + + | Organization | [facility] | + + + | Address | Unknown | + + + | Phone | Unavailable | + + + Support + + + + + | Name | Relationship | Address | Phone | + + + + + | Gene Gee | ECON | [address] | | | | | [place], | | | | | [place] [address] | | + + + + + Care Team Providers + +------+ + | Care Jacquard Loom Carpet Weaver Name | Role | Phone | + +------+ + | Antony Rbiera MD | PCP | | + +------+ + Reason for Visit + + + | Reason | Comments | + + + | Follow-up visit | | + + + Benefits Check (Routine) + +--------+ + + + + | Status | Reason | Specialty | Diagnoses / | Referred By | Referred To | | | | | Procedures | Contact | Contact | + +--------+ + + + + | Authorized | | Surgical | | Non-[facility] | [facility], | | | | Oncology | | Epic Dept | [facility] | | | | | | | [address] | | | | | [address] | | | | | | | [place], [place] | | | | | | | [address] | | | | | | | Phone: | | | | | | | [phone] | | | | | | | Fax: | | | | | | | [phone] | + +--------+ + + + + Encounter Details +--------+---------+ + + + | Date | Type | Department | Care Team | Description | +--------+---------+ + + + | 10/10/ | Office | Surgical Oncology | [facility], | Malignant neoplasm | | 2016 | Visit | at [facility] [address] | [address] | of right female | | | | [facility] | [place], [place] | breast, unspecified | | | | Health and Healing, | [address] | site of breast (HCC) | | | | Building [address] | [phone] | (Primary Dx) | | | | [place], [place] | | | | | | [address] | | | | | | [phone] | | | +--------+---------+ + + + [...] + + + | Blood Pressure | 144/82 | 10/11/2015 1:18 PM | | | | | PDT | | + + + + + | Pulse | 58 | 10/11/2015 1:18 PM | | | | | PDT | | + + + + + | Temperature | 36.8 C (98.3 F) | 10/11/2015 1:18 PM | | | | | PDT | | + + + + + | Respiratory Rate | 16 | 10/11/2015 1:18 PM | | | | | PDT | | + + + + + | Oxygen Saturation | 100% | 10/11/2015 1:18 PM | | | | | PDT | | + + + + + | Inhaled Oxygen | - | - | | | Concentration | | | | + + + + + | Weight | 69.5 kg (153 lb 3.2 | 10/11/2015 1:18 PM | | | | oz) | PDT | | + + + + + | Height | 167.6 cm (5' 6") | 10/11/2015 1:18 PM | | | | | PDT | | + + + + + | Body Mass Index | 24.73 | 10/11/2015 1:18 PM | | | | | PDT | | + + + + + documented in this encounter Progress Notes [facility] MD - 10/11/2015 1:52 PM PDTS: Adriana is here for follow up of her right in vasive ductal breast cancer, treated with mastectomy, axillary dissection and systemic chemo therapy in 2006. The patient denies breast masses, skin changes, nipple changes, nipple disc harge, lymphadenopathy, lymphedema, bone pain, shortness of breath, cough, orthopnea, PND, o r change in abdominal girth. BP 144/82 | Pulse 58 | Temp (Src) 36.8 C (98.3 F) (Oral) | RR 16 | Ht 1.676 m (5' 6") | Wt 69.491 kg (153 lb 3.2 oz) | SpO2 100% | BMI 24.74 kg/(m^2) Gen: WD/WN in NAD. Not jaundiced. HEENT: PERRLA. EOMI. Sclerae non-icteric. Neck: No cervical or supraclavicular lymphadenopathy. Lungs: Clear to auscultation and percussion bilaterally with 2cm diaphragmatic excursions b ilaterally. Breast exam: The Left breast has an everted nipple.There is no obvious skin change, dimplin g, or mass. Palpation of the left breast did not reveal any dominant masses. There was no ni pple discharge. There was no axillary lymphadenopathy. Palpation of the mastectomy scars and flaps did not reveal any suspicious areas, changes or masses. There was no axillary lymphad enopathy. Abd: Non-distended. No obvious mass. Normal BS. No bruits. Soft, non-tender. The liver is n ot palpable. The spleen is not palpable. The liver span is 7 cm to percussion in the right mid-clavicular line. There is no palpable abdominal mass. There is no Sr. Katty Boubacar's no dule. There is no inguinal lymphadenopathy. Extr: Without clubbing, cyanosis, or edema. Neuro: CN II-XII grossly intact. Motor and sensory exam grossly normal throughout. Mammograms and an U/S done because of a density on the mammogram were reviewed today and th e density proved to be a benign cyst. Assessment:History of invasive ductal carcinoma of the right breast, stage I.The patient cu rrently has no evidence of disease. Plan: RTC in 1 year with left mammography. [facility] MD category director Division of Surgical Oncology [id number] [place], [place] [address] documented in this en counter Plan of Treatment Not on filedocumented as of this encounter Results [facility] CRISTAL DIAGNOSTIC LEFT W/CAD (10/23/2016 11:45 AM PDT) + + | Specimen | [...] | | right female breast MA CRISTAL DIAGNOSTIC LEFT W/CAD: October 23, 2016 | | | - CC and MLO view(s) were taken of the left | | | breast. Prior study comparison: October 11, 2015, [facility] CRISTAL DIAGNOSTIC | | | LEFT w/CAD performed at [facility]. September | | | 2014, [facility] CRISTAL DIAGNOSTIC LEFT w/CAD performed at [facility] & | | | [facility]. The breast tissue is heterogeneously dense. | | | This may lower the sensitivity of mammography. Left: Stable left | | | upper outer 2:00 cyst. Otherwise, No suspicious calcifications, | | | masses, or architectural distortion present. Right: No suspicious | | | calcifications, masses, or architectural distortion present. The | | | images were obtained using full field digital mammography on the | | | dedicated Hologic System with R2 CAD. Performed at [facility] and | | | [facility]. 3D tomosynthesis mammography was performed as | | | part of this exam. ASSESSMENT: Benign - Category 2 | | | RECOMMENDATION: Routine screening mammogram of the right breast in 1 | | | year. I have personally reviewed the images and, if necessary, | | | edited the report. I agree with the report as now presented. | | + + + + + | Procedure Note | + + | Service Account, Radiant Res In Interface - 10/23/2016 12:04 PM PDT Patient | | History:Patient has history of breast cancer at age 62.Family history of breast cancer | | in maternal cousin at age 65.Mastectomy of the right breast, March 2007.Last | | mammogram was performed 1 year ago.Reason for exam: history of breast cancer, | | mastectomy. C50.911 Malignant neoplasm of unspecified site of right female breastMA | | CRISTAL DIAGNOSTIC LEFT W/CAD: October 23, 2016 - and MLO view(s) were | | taken of the left breast.Prior study comparison: October 11, 2015, [facility] CRISTAL DIAGNOSTIC LEFT | | w/CAD performed at [facility]. September, [facility] CRISTAL | | DIAGNOSTIC LEFT w/CAD performed at [facility].The breast tissue | | is heterogeneously dense. This may lower the sensitivity of mammography. Left: Stable | | left upper outer 2:00 cyst. Otherwise, No suspicious calcifications, masses, or | | architectural distortion present.Right: No suspicious calcifications, masses, or | | architectural distortion present.The images were obtained using full field digital | | mammography on the dedicated Hologic System with R2 CAD. Performed at [facility] and | | [facility]. 3D tomosynthesis mammography wasperformed as part of this | | exam.ASSESSMENT: Benign - Category 2RECOMMENDATION:Routine screening mammogram of the | | right breast in 1 year.I have personally reviewed the images and, if necessary, edited | | the report. I agree with the report as now presented. | |architectural distortion present. | |Right: No suspicious calcifications, masses, or architectural | |distortion present. | | | |The images were obtained using full field digital mammography on | |the dedicated Hologic System with R2 CAD. Performed at [facility]. 3D tomosynthesis mammography was | |performed as part of this exam. | | | |ASSESSMENT: Benign - Category 2 | | | |RECOMMENDATION: | |Routine screening mammogram of the right breast in 1 year. | | | [...] Malignant neoplasm of right female breast, unspecified site of breast - Primary | + + documented in this encounter
--- OUTSIDE RECORDS SUMMARY | ~2020-05-04 | XMS | Encounter Summary ---
Demographics + + + | Address | [address] | | | [place] [address] | + + + | Home Phone [...] + | Gene Gee | ECON | [address] | | | | | [place], | | | | | [place] [address] | | + + + + + Care Team Providers + +------+ + | Care Blueprint Maker Name | Role | Phone | + +------+ + | Alec Hill MD | PCP | | + +------+ + Encounter Details +--------+ + + + + | Date | Type | Department | Care Team | Description | +--------+ + + + + | 03/19/ | Ancillary | Registration [id number] | | | | 2006 | Registratio | [address] | | | | | n | Driss Mailcode: [id number] | | | | | | [place], [place] | | | | | | [address] | | | | | | [phone] | | | +--------+ + + + [...]
--- OUTSIDE RECORDS SUMMARY | ~2020-05-04 | XMS | Encounter Summary ---
Demographics + + + | Address | [address] | | | [place] [address] | + + + | Home Phone [...] + | Gene Gee | ECON | [address] | | | | | [place], | | | | | [place] [address] | | + + + + + Care Team Providers + +------+ + | Care Oracle Dba Name | Role | Phone | + +------+ + | Antony Ribera MD | PCP | | + +------+ + Reason for Visit + +--------+ + | Reason | Onset | Comments | | | Date | | + +--------+ + | Refill Request | 08/05/ | | | | 2010 | | + +--------+ + Encounter Details +--------+--------+ + + + | Date | Type | Department | Care Team | Description | +--------+--------+ + + + | 08/05/ | Refill | Cardiology General | Monique Middleton, | Refill Request | | 2010 | | at [facility] [address] | NETWORK OPERATIONS MANAGER | | | | | [facility] | | | | | | Health and Healing, | | | | | | [facility] | | | | | | Floor [place], [place] | | | | | | [address] | | | | | | [phone] | | | +--------+--------+ + + + [...]
--- OUTSIDE RECORDS SUMMARY | ~2020-05-04 | XMS | Encounter Summary ---
Demographics + + + | Address | [address] | | | [place] [address] | + + + | Home Phone | | + + + | Preferred Language | Unknown | + + + | Marital Status | | + + + | Orthodox Affiliation | CHR | + + + [...] + | Gene Gee | ECON | [address] | | | | | [place], | | | | | [place] [address] | | + + + + + Care Team Providers + +------+ + | Care Fruit Tester Name | Role | Phone | + +------+ + | Antony Ribera MD | PCP | | + +------+ + Encounter Details +--------+ + + + + | Date | Type | Department | Care Team | Description | +--------+ + + + + | 07/23/ | Abstract | Cardiology | Elijah Whalen, | | | 2018 | | Arrhythmia at [facility] | [address] | | | | | [address] | [address] | | | | | [facility] | [place], [place] | | | | | and Healing, | [address] | | | | | [facility] | [phone] | | | | | Floor [place], [place] | | | | | | [address] | | | | | | [phone] | | | +--------+ + + + [...]
--- OUTSIDE RECORDS SUMMARY | ~2020-05-04 | XMS | Encounter Summary ---
Demographics + + + | Address | [address] | | | [place] [address] | + + + | Home Phone | | + + + | Preferred Language | Unknown | + + + | Marital Status | | + + + | Adventism Affiliation | CHR | + + + [...] + | Gene Gee | ECON | [address] | | | | | [place], | | | | | [place] [address] | | + + + + + Care Team Providers + +------+ + | Care Brick Shader Name | Role | Phone | + +------+ + | Antony Ribera MD | PCP | | + +------+ + Encounter Details +--------+ + + + + | Date | Type | Department | Care Team | Description | +--------+ + + + + | 09/18/ | Hospital | Diagnostic | | | | 2008 | Encounter | Radiology at [facility] | | | | | | [address] | | | | | | [address] Mailcode: | | | | | | [id number] | | | | | | [place], | | | | | | [place] [address] | | | | | | [phone] | | | +--------+ + + + [...]
--- OUTSIDE RECORDS SUMMARY | ~2020-05-04 | XMS | Encounter Summary ---
Demographics + + + | Address | [address] | | | [place] [address] | + + + | Home Phone | | + + + | Preferred Language | Unknown | + + + | Marital Status | | + + + | Scientology Affiliation | 1013 | + + + | Race | White | + + + | Ethnic Group | Not or | + + + Author + + + | Author | [facility] | | | and [place] | + + + | Organization | [facility] | | | and [...] Team Providers + +------+ + | Care National Business Director Name | Role | Phone | + +------+ + PCP | Unavailable | + +------+ + Encounter Details +--------+ + + + + | Date | Type | Department | Care Team | Description | +--------+ + + + + | 08/26/ | Hospital | [facility] | Dilip Frias MD | | | 2002 | Encounter | MED CTR GENERIC OP | [address] | | | | | CONV DEPT [address] | [address] | | | | | [place], | [address] | | | | | [place] [address] | | | | | | [phone] | | | +--------+ + + + [...] | | | | | [place] [address] | | | | | | [phone] | | | | | | | | +--------+ + + + + | 05/19/ | Appointment | Cardiology | Martin Kelley, | | 2019 | | | MD [address] | | | | | | [place], | | | | | | [place] [address] | | | | | | [phone] | | | | | | | | +--------+ + + + + | 11/26/ | Office | Cardiology | Martin Kelley, | | | 2020 | Visit | | MD [address] | | | | | | [place], | | | | | | [place] [address] | | | | | | [phone] | | | | | | | | +--------+ + + + + documented as of this encounter Visit Diagnoses Not on filedocumented in this encounter"
--- OUTSIDE RECORDS SUMMARY | ~2020-05-04 | XMS | Encounter Summary ---
Demographics + + + | Address | [address] | | | [place] [address] | + + + | Home Phone [...] + | Gene Gee | ECON | [address] | | | | | [place], | | | | | [place] [address] | | + + + + + Care Team Providers + +------+ + | Care Bread Wrapper Name | Role | Phone | + +------+ + | Antony Ribera MD | PCP | | + +------+ + Encounter Details +--------+ + + + + | Date | Type | Department | Care Team | Description | +--------+ + + + + | 09/02/ | Documentati | Hematology/Medical | Stevan Velazquez, | | | 2008 | on | Oncology at [facility] | [address] | | | | | [address] | [place], [place] | | | | | Mailcode: [place] | [address] | | | | | [facility] | [phone] | | | | | and Healing, | | | | | | [facility] | | | | | | Floor [place], [place] | | | | | | [address] | | | | | | [phone] | | | +--------+ + + + [...] Telephone Encounter - Rosalinda Palacios RN - 09/02/2008 8:05 AM PSTThis encounter is to doc ummichelle an email exchange between Dr. Velazquez and patient. Felipe Womack I spoke with Monique from Cardiology about this, as I did a literature search and could not f ind report on pulmonary hypertension with either taxotere or arimidex. Cytoxan has been used as immuno-suppressive agent to treat pulmonary hypertension associated with auto-immune dis ease such as scleroderma. Let us see what the pulmonary consult will find for us. I think we can continue on arimidex for now. Regards, Tricia Velazquez M.D. -----Original Message----- From: Mikel [[email or web address]] Sent: Sun08/24/2008 8:31 PM To: Tricia Velazquez Subject: New diagnosis Hi Dr. Velazquez I will be seeing you later this month but had some questions before I saw you again. Hopefu lly you can look at my recent tests at [facility] (Aug 21) to see what is currently happening. I just got back from testing at [facility] regarding my heart and lungs. I am very short of breat h. The testing showed that I have pulmonary hypertension (mild to moderate). I am wondering if any of the drugs used during my chemo have ever been known to bring on this problem. As renae valentino recall, the last chemo I had caused me to be very short of breath for several weeks. I bhakta d a hard time taking a deep breath and thought it was because I had been forgetting to use m y Spiriva every day. I have an appt. with Dr. Ruth Hernandez ([facility]) on 09/08/08. If there is a ny medication that I have had that could have added to this problem, could you please let Dr Jose Hernandez know before my appt. date. Thanks and see you soon. Sincerely, Adriana Espositotronically signed by Rosalinda Palacios RN at 09/02/2008 8:05 AM PSTdocumented in this encounter Plan of Treatment Not on filedocumented as of this encounter Visit Diagnoses Not on filedocumented in this encounter"
--- OUTSIDE RECORDS SUMMARY | ~2020-05-04 | XMS | Encounter Summary ---
Demographics + + + | Address | [address] | | | [place] [address] | + + + | Home Phone | | + + + | Preferred Language | Unknown | + + + | Marital Status | | + + + | Latter-Day Affiliation | CHR | + + + [...] + | Gene Gee | ECON | [address] | | | | | [place], | | | | | [place] [address] | | + + + + + Care Team Providers + +------+ + | Care Correctional Food Service Supervisor Name | Role | Phone | + +------+ + | Antony Ribera MD | PCP | | + +------+ + Encounter Details +--------+ + + + + | Date | Type | Department | Care Team | Description | +--------+ + + + + | 03/15/ | Results | Surgical Oncology | Henri Heart, | | | 2006 | Only | at [facility] [address] | [address] | | | | | [facility] | [place], [place] | | | | | [facility], | [address] | | | | | Building [address] | [phone] | | | | | [place], [place] | | | | | | [address] | | | | | | [phone] | | | +--------+ + + + [...] | | + +---------+--------+ + + | END[facility]COP[facility] | Imaging | Routin | | 04/18/2007 9:22 AM | | | | e | | PDT | + +---------+--------+ + + | FLUORO OR <= 1 HR | Imaging | Routin | | 04/19/2007 8:50 AM | | | | e | | PDT | + +---------+--------+ + + documented as of this encounter Procedures + +--------+ + + + | Procedure Name | Priori | Date/Time | Associated Diagnosis | Comments | | | ty | | | | + +--------+ + + + | NM LYMPHATICS | Routin | 03/19/2007 | | Results for this | | SENTINEL NODE | e | 8:46 AM | | procedure are in the | | | | PDT | | results section. | + +--------+ + + + | NM LYMPH INJECTION | Routin | 03/19/2007 | | Results for this | | SENTINEL NODE ONLY | e | 8:20 AM | | procedure are in the | | | | PDT | | results section. | + +--------+ + + + | CYTOGENETICS REPORT | Routin | 03/19/2007 | | Results for this | | | e | | | procedure are in the | | | | | | results section. | + +--------+ + + + | SURGICAL PATHOLOGY | Routin | 03/19/2007 | | Results for this | | | e | | | procedure are in the | | | | | | results section. | + +--------+ + + + documented in this encounter Results NM LYMPHATICS SENTINAL NODE (03/19/2007 8:46 AM PDT) + + + + + + | Component | Value | Ref Range | Performed | Pathologist | | | | | At | Signature | + + + + + + | NM LYMPH | Radiologist 1: SHERRY, | | | | | DRAINAGE | [facility]AVA | | | | | SENT NODE | M.D.-Radiologist 2: | | | | | | ALIZA MARTINEZ, | | | | | | M.DJoseBREAST SENTINEL NODE | | | | | | LOCALIZATION CLINICAL | | | | | | HISTORY / INDICATION(S): | | | | | | right breast | | | | | | malignancy PROCEDURE: | | | | | | The skin over the | | | | | | right areola was cleaned | | | | | | in thestandard manner | | | | | | with Betadine and | | | | | | alcohol wipes. An | | | | | | intradermalinjection was | | | | | | given of 0.1 cc | | | | | | containing 0.1 mCi Tc | | | | | | 99m unfilteredsulfur | | | | | | colloid in the | | | | | | periareolar area of the | | | | | | right upperquadrant. | | | | | | Within 15 minutes, a | | | | | | single lymph node was | | | | | | identifiedin the right | | | | | | axilla. Mcneal are made | | | | | | at 0 and 45 degrees | | | | | | with anindelible marker. | | | | | | FINDINGS: A single | | | | | | lymph node is identified | | | | | | in the right | | | | | | axilla.IMPRESSION: | | | | | | Successful | | | | | | identification of a | | | | | | single sentinel lymph | | | | | | node in theright axilla. | | | | | | Results contacted to | | | | | | Dr. Heart following | | | | | | completion of thestudy. | | | | + + + + + + + + | Specimen | + + | | + + + +---------+ + + | Performing | Address | City/State/Zipcode | Phone Number | | Organization | | | | + +---------+ + + | [facility]PARTMENT OF | | | | | RADIOLOGY | | | | + +---------+ + + NM LYMPH INJECTION SENTINEL NODE ONLY (03/19/2007 8:20 AM PDT) + + + + + + | Component | Value | Ref Range | Performed | Pathologist | | | | | At | Signature | + + + + + + | NM LYMPH | Radiologist 1: SHERRY, | | | | | INJ SENTNL | [place] | | | | | NODE ONLY | M.D.-Radiologist 2: | | | | | | ALIZA MARTINEZ, | | | | | | MJoseDJoseBREAST SENTINEL NODE | | | | | | LOCALIZATION CLINICAL | | | | | | HISTORY / INDICATION(S): | | | | | | right breast | | | | | | malignancy PROCEDURE: | | | | | | The skin over the | | | | | | right areola was cleaned | | | | | | in thestandard manner | | | | | | with Betadine and | | | | | | alcohol wipes. An | | | | | | intradermalinjection was | | | | | | given of 0.1 cc | | | | | | containing 0.1 mCi Tc | | | | | | 99m unfilteredsulfur | | | | | | colloid in the | | | | | | periareolar area of the | | | | | | right upperquadrant. | | | | | | Within 15 minutes, a | | | | | | single lymph node was | | | | | | identifiedin the right | | | | | | axilla. Mcneal are made | | | | | | at 0 and 45 degrees | | | | | | with anindelible marker. | | | | | | FINDINGS: A single | | | | | | lymph node is identified | | | | | | in the right | | | | | | axilla.IMPRESSION: | | | | | | Successful | | | | | | identification of a | | | | | | single sentinel lymph | | | | | | node in theright axilla. | | | | | | Results contacted to | | | | | | Dr. eHart following | | | | | | completion of thestudy. | | | | + + + + + + + + | Specimen | + + | | + + + +---------+ + + | Performing | Address | City/State/Zipcode | Phone Number | | Organization | | | | + +---------+ + + | [facility] DEPARTMENT OF | | | | | RADIOLOGY | | | | + +---------+ + + CYTOGENETICS REPORT (03/19/2007) + + + + + + | Component | Value | Ref Range | Performed | Pathologist | | | | | At | Signature | + + + + + + | CHROMOSOME | SPECIMEN TYPE AND TYPE | | | | | REPORT | OF STUDY:A Breast Tumor | | | | | | Slides: HER-2/maddi | | | | | | FISHChromosome Results: | | | | | | NoneKARYOTYPE RESULTS: | | | | | | See below IMPRESSIONS | | | | | | AND | | | | | | RECOMMENDATIONS:DUPLICAT | | | | | | E SAMPLE. SEE [id number] | | | | | | FOR RESULTS. For | | | | | | questions regarding this | | | | | | report, please call | | | | | | . | | | | | | The clinical | | | | | | interpretation was made | | | | | | by the clinical | | | | | | mold clamper.Rendering | | | | | | Diagnostician: Katie | | | | | | Nate, PhD, ABMG, | | | | | | FACMGCytogeneticistElect | | | | | | ronically Signed | | | | | | 04/04/2007Comment: | | | | | | SOURCE OF SPECIMEN: | | | | | | Breast Tumor Slides: | | | | | | HER-2/maddi FISH | | | | + + + + + + + + | Specimen | + + | | + + + + + + + | Performing | Address | City/State/Zipcode | Phone Number | | Organization | | | | + + + + + | [facility] | [facility] | [place] [address] | | | GENETICS LABS | [address] | | | | | [address] | | | + + + + + SURGICAL PATHOLOGY (03/19/2007) + + + + + + | Component | Value | Ref Range | Performed | Pathologist | | | | | At | Signature | + + + + + + | SURGICAL | SOURCE OF SPECIMEN:A | | [facility] | | | PATHOLOGY | Lapoint lymph | | DEPARTMENT | | | | node-FSSOURCE OF | | OF | | | | SPECIMEN:B Right total | | PATHOLOGY | | | | masectomy Final | | | | | | Pathologic Diagnosis:A: | | | | | | Lapoint lymph node, | | | | | | biopsy: - Isolated | | | | | | keratin-positive tumor | | | | | | cells in one of one | | | | | | lymph node (seeComment) | | | | | | B: Breast, right, | | | | | | total mastectomy: | | | | | | - 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, modified | | | | | | Geivfh-Tvvzm-Phflyaugxq | | | | | | grade Iof III (see | | | | | | comment) - | | | | | | Invasive tumor measures | | | | | | 1.4 cm in histologic | | | | | | sections - Tumor | | | | | | extends to within 0.4 cm | | | | | | of anterosuperior | | | | | | margin and 0.1 cmof deep | | | | | | margin - | | | | | | Angiolymphatic invasion | | | | | | is not seen.- 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 The | | | | | | tumor isconsistent with | | | | | | mSBR grade I (tubule | | | | | | formation = 2, | | | | | | pleomorphism = 2,mitosis | | | | | | = 1, total score of 5) | | | | | | invasive ductal | | | | | | carcinoma. Invasive | | | | | | tumorextends to within | | | | | | 0.4 cm of anterosuperior | | | | | | margin (slide B1) and | | | | | | within 0.1cm from the | | | | | | deep margin (slide | | | | | | B18).The sentinel lymph | | | | | | node is stained with | | | | | | CKCAM5.2 and llanos CK per | | | | | | thesentinel lymph node | | | | | | protocol and | | | | | | demonstrates 2 foci of | | | | | | keratin positivetumor | | | | | | cells (approximately 2 | | | | | | and 4 cells | | | | | | respectively), seen in | | | | | | retrospecton H and E | | | | | | stained permanent | | | | | | sections, but not | | | | | | apparent on frozen | | | | | | sectionslides. From | | | | | | the axillary tail of the | | | | | | mastectomy specimen, | | | | | | one of fourlymph nodes | | | | | | is positive for isolated | | | | | | tumor cells (3 groups | | | | | | of >50 cellstotal), seen | | | | | | on H and E sections, | | | | | | with no focus greater | | | | | | than 0.2 mm. Case | | | | | | reviewed by:Eron | | | | | | Rita, | | | | | | M.D./ResidentMegan | | | | | | Natalee, Ph.D., | | | | | | M.D./PathologistT:03/21/07 | | | | | | :zandra Pathology Staging | | | | | | Summary Breast Cancer | | | | | | SynopsisSpecimens | | | | | | InvolvedSpecimens: | | | | | | A: Lapoint lymph | | | | | | node-FSB: Right total | | | | | | masectomy Tumor Site: | | | | | | Upper outer | | | | | | quadrantInvasive | | | | | | carcinoma | | | | | | presentInvasive greatest | | | | | | dimension: | | | | | | 1.4cmHistologic Type: | | | | | | 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 with an | | | | | | extensive | | | | | | intraductalcomponentTumo | | | | | | r Grade and modified | | | | | | Gee-Alonso score: | | | | | | Grade I: 3-5 | | | | | | pointsTubule Formation: | | | | | | Score 2Nuclear | | | | | | Pleomorphism: Score | | | | | | 2Mitotic Count: Score | | | | | | 1Margin(s) negative for | | | | | | invasive | | | | | | carcinomaClosest | | | | | | margin(s) and distance | | | | | | in cm: 0.1 cm from | | | | | | deep; 0.4 cm | | | | | | fromsuperoanteriorAngiol | | | | | | ymphatic invasion: | | | | | | AbsentIn situ carcinoma | | | | | | presentIn situ greatest | | | | | | dimension: | | | | | | 4cmHistologic Type: | | | | | | Ductal carcinoma in | | | | | | situNuclear grade in | | | | | | situ: IntermediateIn | | | | | | situ carcinoma with | | | | | | comedonecrosisMargin(s) | | | | | | negative for DCISClose | | | | | | margin(s) and distance | | | | | | in cm: 0.1 cm from | | | | | | deepAJCC Stage | | | | | | (pTNM)Primary Tumor | | | | | | (pT): yP5xExbsxphy Nodes | | | | | | (pN): | | | | | | pN0(i+)Number of | | | | | | regional nodes involved: | | | | | | 2Number of regional | | | | | | nodes examined: 5Distant | | | | | | Metastasis (pM): | | | | | | pMXNipple: no | | | | | | diagnostic | | | | | | abnormalityMicrocalcific | | | | | | ations: Present in | | | | | | DCIS Clinical | | | | | | History:The patient is a | | | | | | 61-year-old female with | | | | | | Sjogren syndrome. | | | | | | Patientpresents with | | | | | | right breast cancer. 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 | | | | | | Planned procedure: | | | | | | right mastectomy with | | | | | | right sentinellymph node | | | | | | biopsy. Gross | | | | | | Description:Two | | | | | | specimens are received | | | | | | fresh in containers | | | | | | labeled with the | | | | | | patientname (initials | | | | | | CB). A: Lapoint lymph | | | | | | node, FS: Received | | | | | | fresh is an irregular, | | | | | | soft,yellow-evangelista tissue, | | | | | | measuring 2.2 x 1.3 x | | | | | | 0.7 cm. The specimen is | | | | | | bisectedrevealing a | | | | | | single lymph node. The | | | | | | entire lymph node is | | | | | | frozen andresubmitted in | | | | | | toto. Remaining | | | | | | tissue not used for | | | | | | frozen sectiondiagnosis | | | | | | is submitted in toto. B: | | | | | | Right total | | | | | | mastectomy: Received | | | | | | is a 550g, (25.0(ML) x | | | | | | 20.0(SI) x 4.5(AP) cm) | | | | | | mastectomy specimen | | | | | | including axillary tail | | | | | | (5.0 x 4.0 x 2.5 cm).The | | | | | | overlying skin ellipse | | | | | | (20.5 (ML) x 8.0 (SI) | | | | | | cm) contains | | | | | | anunremarkable areola | | | | | | (2.5 x 2.5 cm) and | | | | | | nipple (1.2 x 1.2 x 1.0 | | | | | | cm). Thespecimen is | | | | | | inked as follows: | | | | | | superoanterior blue, | | | | | | inferoanterior | | | | | | green,deep black. | | | | | | Serial sectioning | | | | | | reveals diffuse | | | | | | fibrocystic changes and | | | | | | anill-defined, firm, | | | | | | stellate evangelista-white mass | | | | | | in the upper-outer | | | | | | quadrant thatmeasures | | | | | | 4.2 x 2.2 x 1.5 cm. The | | | | | | lesion appears to abut | | | | | | the anterior marginand | | | | | | extend to within 0.3 cm | | | | | | of the superior and 0.4 | | | | | | cm from the deepmargin. | | | | | | No other mass lesions | | | | | | are present within the | | | | | | breast. Sectioningand | | | | | | palpation of the | | | | | | axillary tail reveals 11 | | | | | | possible lymph node | | | | | | that aresubmitted in | | | | | | toto. [employer] | | | | | | sections are submitted. | | | | | | Cassette Index:A: | | | | | | Lapoint lymph node, | | | | | | FS:A1, frozen section | | | | | | residueA2, remainder of | | | | | | specimenB: Right total | | | | | | mastectomy:B1, | | | | | | lateral-most section of | | | | | | tumorB2, next medial | | | | | | section of tumorB3-5 | | | | | | tumorB6, hemorrhagic | | | | | | area of stellate | | | | | | possible tumor lateral | | | | | | to nipple lineB7, lower | | | | | | outer quadrantB8-9, | | | | | | nipple and yqqnhuG66, | | | | | | upper inner wynsbuaqT98, | | | | | | lower inner | | | | | | pyijemcnU94, additional | | | | | | tumor adjacent to block | | | | | | B3B13, hemorrhagic area | | | | | | subjacent to ytxjzhI35, | | | | | | two possible lymph | | | | | | gxhsvR24, four possible | | | | | | lymph sgvnbJ63, four | | | | | | possible lymph ugvxoE93, | | | | | | one possible lymph | | | | | | ricjV40-48, additional | | | | | | sections of tumorDVS:lab | | | | | | IHC | | | | | | Results:Immunohistochemi | | | | | | olga stains are performed | | | | | | on formalin-fixed, | | | | | | paraffinembedded tissue, | | | | | | using an avidin-biotin | | | | | | protocol that includes | | | | | | appropriatepositive and | | | | | | negative controls. Block | | | | | | W74Eqzxwelxvi: Lesional | | | | | | cells Marker | | | | | | Result | | | | | | CommentEstrogen | | | | | | Receptor Clone [id number] | | | | | | Positive 80% of | | | | | | invasive and >95% of in | | | | | | situcarcinoma, 3+ | | | | | | intensityProgesterone | | | | | | Receptor Clone 1E2 | | | | | | Positive variable, | | | | | | average 30% ofinvasive | | | | | | and in situ carcinoma, | | | | | | 2+ intensityHer-2/Maddi | | | | | | CB11, Pathway TM | | | | | | Negative 1+, | | | | | | negative Note: The ER | | | | | | and IN | | | | | | immunohistochemical | | | | | | stains are performed | | | | | | with standardkits from | | | | | | [employer]. The ER and IN | | | | | | stains are considered | | | | | | positive if there | | | | | | ismoderate to strong | | | | | | nuclear staining in at | | | | | | least 10% of the tumor | | | | | | cells. % of invasive | | | | | | tumor cells exhibiting | | | | | | complete HER-2/maddi | | | | | | membrane | | | | | | stainin%Uniformity | | | | | | of HER-2/maddi staining: | | | | | | absentHomogeneous, dark | | | | | | circumferential | | | | | | HER-2/maddi staining: | | | | | | absent Her-2/maddi | | | | | | immunohistochemical | | | | | | staining is performed | | | | | | with the | | | | | | VentanaPATHWAYTM kit, | | | | | | including monoclonal | | | | | | antibody [id number]. This | | | | | | protocol is FDAapproved | | | | | | and is performed without | | | | | | technical modification. | | | | | | Positive,negative and | | | | | | equivocal controls | | | | | | showed appropriate | | | | | | reactivity. | | | | | | Tissuespecimens | | | | | | processed at [facility] are | | | | | | routinely fixed between | | | | | | 6-48 hours inneutral | | | | | | buffered formalin; core | | | | | | biopsy specimens are | | | | | | fixed longer than 1hour. | | | | | | Scoring and | | | | | | interpretation are per | | | | | | the [employer] scoring | | | | | | guide asmodified by | | | | | | ASCO/CAP 2006 | | | | | | guidelines: score 0-no | | | | | | membrane | | | | | | staining(interpretation: | | | | | | negative); score 1+-- | | | | | | Faint, partial staining | | | | | | of themembrane | | | | | | (interpretation: | | | | | | negative, cases are sent | | | | | | for reflex | | | | | | FISHtesting); score 2+-- | | | | | | Weak complete staining | | | | | | of the membrane, greater | | | | | | than10% of invasive | | | | | | cancer cells | | | | | | (interpretation: | | | | | | equivocal, cases are | | | | | | sent forreflex FISH | | | | | | testing); 3+-- Intense | | | | | | complete staining of the | | | | | | membrane ingreater than | | | | | | 30% of invasive cancer | | | | | | cells, also requiring | | | | | | intense, uniformmembrane | | | | | | staining, dark | | | | | | circumferential 'chicken | | | | | | wire' | | | | | | staining(interpretation: | | | | | | positive). Inadequate | | | | | | specimens are not | | | | | | interpreted.[facility] | | | | | | participates in | | | | | | proficiency testing for | | | | | | Her-2/neuimmunohistochem | | | | | | istry. Reference: | | | | | | JocelynELMO et al. | | | | | | [place] Society | | | | | | ofClinical | | | | | | Oncology/College of | | | | | | [place] Pathologists | | | | | | Guideline | | | | | | Recommendationfor Human | | | | | | Epidermal Growth Factor | | | | | | Receptor 2 Testing in | | | | | | Breast Cancer.Arch | | | | | | Pathol Lab Med | | | | | | 131:18-43. 2006. | | | | | | (Analyte specific | | | | | | reagents are used in | | | | | | many laboratory tests | | | | | | necessary forstandard | | | | | | medical care and | | | | | | generally do not require | | | | | | FDA approval. This | | | | | | testwas developed and | | | | | | its performance | | | | | | characteristics | | | | | | determined by | | | | | | [facility]. It has | | | | | | not been cleared or | | | | | | approved by the U.[place]. | | | | | | Food and | | | | | | DrugAdministration.) I | | | | | | have reviewed all | | | | [...] | | | | | | Section | | | | | | Diagnosis:Lapoint lymph | | | | | | node (specimen A): | | | | | | - No tumor seen | | | | | | Confirmed by: Eron | | | | | | Declan Salinas / | | | | | | Resident and Demond | | | | | | Declan Gerardo,Ph.D. / | | | | | | PathologistRendering | | | | | | Diagnostician: Julia Veliz | | | | | | Natalee Ph.D., | | | | | | M.D.PathologistElectroni | | | | | | will Signed 03/25/2007 | | | | + + + + + + + + | Specimen | + + | | + + + + + + + | Performing | Address | City/State/[facility] | Phone Number | | Organization | | | | + + + + + | [facility] | [address] | [place] [address] | | | PATHOLOGY | JACKY GARNETT | | | + + + + + | [facility] | [address] | [place] [address] | | | PATHOLOGY | JACKY GARNETT | | | + + + + + documented in this encounter Visit Diagnoses Not on filedocumented in this encounter"
--- OUTSIDE RECORDS SUMMARY | ~2020-05-04 | XMS | Encounter Summary ---
Demographics + + + | Address | [address] | | | [place] [address] | + + + | Home Phone [...] + | Gene Gee | ECON | [address] | | | | | [place], | | | | | [place] [address] | | + + + + + Care Team Providers + +------+ + | Care Folder Gluer Operator Name | Role | Phone | + +------+ + | Alec Hill MD | PCP | | + +------+ + Encounter Details +--------+ + + + + | Date | Type | Department | Care Team | Description | +--------+ + + + + | 07/05/ | Ancillary | Registration [id number] | Stevan Velazquez, | | | 2006 | Registratio | [address] | [address] | | | | n | Driss Mailcode: RPB07 | [place], [place] | | | | | [place], [place] | [address] | | | | | [address] | [phone] | | | | | [phone] | | | +--------+ + + + [...]
--- OUTSIDE RECORDS SUMMARY | ~2020-05-04 | XMS | Encounter Summary ---
Demographics + + + | Address | [address] | | | [place] [address] | + + + | Home Phone | | + + + | Preferred Language | Unknown | + + + | Marital Status | | + + + | Lutheran Affiliation | 1013 | + + + | Race | White | + + + | Ethnic Group | Not or | + + + Author + + + | Author | [facility] | | | and [place] | + + + | Organization | [facility] | | [...] Team Providers + +------+ + | Care Senior Clinical Research Associate Name | Role | Phone | + +------+ + | Alec Hill MD | PCP | | + +------+ + Reason for Visit + +--------+ + | Reason | Onset | Comments | | | Date | | + +--------+ + | Appointment | 09/30/ | [facility] Policy changes | | | 2020 | | + +--------+ + Encounter Details +--------+ + + + + | Date | Type | Department | Care Team | Description | +--------+ + + + + | 09/30/ | Telephone | [facility] | Martin Kelley, | Appointment ([facility] | | 2019 | | CARDIOLOGY ELIZA | MD [address] | Policy changes) | | | | [address] | [facility], | | | | | [place], [place] | [place] [address] | | | | | [address] | [phone] | | | | | [phone] | | | +--------+ + + + [...] this encounter Miscellaneous Notes Telephone Encounter - Carisa Stokes, Contract Consultant - 10/01/2019 2:07 PM PDTI called Adriana and informed her of the new [facility] policy and asked the epidemic questions. Per patie nt she is ok with not allowing anyone To come to her appointment and would still confirmed her appointment for Sunday. I let her know that there could be changes in the near future b ut that at this time we will confirm her appointment documented in this encounter Plan of Treatment +--------+ + + + + | Date | Type | Specialty | Care Team | Description | +--------+ + + + + | 05/19/ | Office | Orthopedic Surgery | Tee Choi, | | | 2019 | Visit | | [address] | | | | | | [place] [address] | | | | | | [phone] | | | | | | | | +--------+ + + + + | 05/19/ | Appointment | Cardiology | Martin Kelley, | | | 2019 | | | MD [address] | | | | | | [place], | | | | | | [place] [address] | | | | | | [phone] | | | | | | | | +--------+ + + + + | 11/26/ | Office | Cardiology | Martin Kelley, | | | 2020 | Visit | | MD [address] | | | | | | [place], | | | | | | [place] [address] | | | | | | [phone] | | | | | | | | +--------+ + + + + documented as of this encounter Visit Diagnoses Not on filedocumented in this encounter"
--- OUTSIDE RECORDS SUMMARY | ~2020-05-04 | XMS | Encounter Summary ---
Demographics + + + | Address | [address] | | | [place] [address] | + + + | Home Phone | | + + + | Preferred Language | Unknown | + + + | Marital Status | | + + + | Orthodoxy Affiliation | CHR | + + + [...] + | Gene Gee | ECON | [address] | | | | | [place], | | | | | [place] [address] | | + + + + + Care Team Providers + +------+ + | Care Antique Finisher Name | Role | Phone | + +------+ + | Antony Ribera MD | PCP | | + +------+ + Encounter Details +--------+ + + + + | Date | Type | Department | Care Team | Description | +--------+ + + + + | 12/28/ | Hospital | Pulmonary Function | Tech, Pfl Adult | | | 2008 | Encounter | [facility] at [facility] [address] | [address] | | | | | [address] | [facility], | | | | | [place], | [place] [address] | | | | | 3rd floor [place], | | | | | | [place] [address] | | | | | | [phone] | | | +--------+ + + + [...]
--- OUTSIDE RECORDS SUMMARY | ~2020-05-04 | XMS | Encounter Summary ---
Demographics + + + | Address | [address] | | | [place] [address] | + + + | Home Phone [...] + | Gene Gee | ECON | [address] | | | | | [place], | | | | | [place] [address] | | + + + + + Care Team Providers + +------+ + | Care Professor Of Psychiatry Name | Role | Phone | + +------+ + | Antony Ribera MD | PCP | | + +------+ + Encounter Details +--------+ + + + + | Date | Type | Department | Care Team | Description | +--------+ + + + + | 04/03/ | MyChart | [facility] | Tapan Horowitz MD | RE: upcoming | | 2011 | Encounter | [facility] | [address] | appointment | | | | [facility] | [address] [place], | | | | | [address] | [place] [address] | | | | | [address] | [phone] | | | | | Physician's | | | | | | [address], 1st floor | | | | | | [place], [place] | | | | | | [address] | | | | | | [phone] | | | +--------+ + + + [...] on filedocumented as of this encounter Results TSH (04/09/2012 12:57 PM PDT) + +-------+ + + + | Component | Value | Ref Range | Performed | Pathologist | | | | | At | Signature | + +-------+ + + + | TSH | 1.67 | 0.34 - 5.60 | [facility] | | | | | uIU/ml | REGIONAL | | | | | | LABORATORY | | + +-------+ + + + + + | Specimen | + + | Blood - Blood | + + + + + | Narrative | Performed At | + + + | [facility]) | [facility] | | [facility] [address] [facility] | REGIONAL | | [place] [address] | LABORATORY | + + + + + + + + | Performing | Address | City/State/Zipcode | Phone Number | | Organization | | | | + + + + + | [facility] | [address] | [place] [address] | | | LABORATORY | | | | + + + + + VITAMIN D, 25-HYDROXY, SERUM (04/09/2012 12:57 PM PDT) + + + + + + | Component | Value | Ref Range | Performed | Pathologist | | | | | At | Signature | + + + + + + | VITAMIN D | 57Comment: REFERENCE | 30 - 80 ng/mL | [...] ng/mL* | | | | | | *(Jean Carlos CL et al. | | | | [...] | + + + + + | [facility] | [address] | [place] [address] | | | PATHOLOGY | [address] | | | + + + + + documented in this encounter Visit Diagnoses + + | Diagnosis | + + | Thyroid nodule Nontoxic uninodular goiter | + + | Osteopenia Disorder of bone and cartilage, unspecified | + + documented in this encounter"
--- OUTSIDE RECORDS SUMMARY | ~2020-05-04 | XMS | Encounter Summary ---
Demographics + + + | Address | [address] | | | [place] [address] | + + + | Home Phone [...] + | Gene Gee | ECON | [address] | | | | | [place], | | | | | [place] [address] | | + + + + + Care Team Providers + +------+ + | Care Rural Service Engineer Name | Role | Phone | [...] Description | +--------+---------+ + + + | 12/28/ | Office | [facility] | Tapan Horowitz MD | Osteopenia (Primary | | 2009 | Visit | [facility] | [address] | Dx) | | | | [facility] | [address] [place], | | | | | [address] | [place] [address] | | | | | [address] | [phone] | | | | | Physician's | | | | | | Pavilion, 1st floor | | | | | | [place], [place] | | | | | | [address] | | | | | | [phone] | | | +--------+---------+ + + + [...] + + + | Blood Pressure | 147/71 | 12/28/2008 11:04 AM | | | | | PDT | | + + + + + | Pulse | 75 | 12/28/2008 11:04 AM | | | | | PDT | | + + + + + | Temperature | - | - | | + + + + + | Respiratory Rate | 10 | 12/28/2008 11:04 AM | | | | | PDT | | + + + + + | Oxygen Saturation | - | - | | + + + + + | Inhaled Oxygen | - | - | | | Concentration | | | | + + + + + | Weight | 64 kg (141 lb) | 12/28/2008 11:04 AM | | | | | PDT | | + + + + + | Height | 165.1 cm (5' 5") | 12/28/2008 11:04 AM | | | | | PDT | | + + + + + | Body Mass Index | 23.46 | 12/28/2008 11:04 AM | | | | | PDT | | + + + + + documented in this encounter Patient Instructions Patient Instructions Tapan Horowitz MD - 12/28/2008 11:31 AM PDTStop bonivaElectronically si gned by Tapan Horowitz MD at 12/28/2008 11:31 AM PDT documented in this encounter Progress Notes Tapan Horowitz MD - 12/28/2008 11:35 AM PDTFormatting of this note might be different from t brigido original. Chief Complaint: Patient being seen in followup for the following issues: Osteopenia ROS All other systems have been reviewed and pt hospitalized twice in 2007 for bowel obstructio n. S: no fractures, no kidney stones O: Filed Vitals: 12/28/2008 11:04 AM BP: 147/71 Pulse: 75 Resp: 10 Height: 1.651 m (5' 5") Weight: 63.957 kg (141 lb) PainSc: 0 - Zero Gen: NAd CV: reg Lungs cta A/p 1.Osteopenia: Pts bone density holding steady on Boniva with pts use of arimidex (aromatase inhibitor). However, I am concerned about her bowel obstruction hospitalizations and if Bon ry can exacerbate that issue. Therefore, I think it would be safer for the pt to be on IV R eclast 5 mg yearly that avoids the GI tract. Reviewed with patient the possibilty of post in fusion reaction marked by flu like symptoms of myalgias, fever, and malaise. Reviewed with p atient the rare side effect of osteonecrosis of the jaw and to see a dentist on a routine ba sis and inform the dentist that the patient is using bisphosphonate therapy. Reclast can als o rarely exacerbate asthma but I do not think this will be a clinically relevant issue. The pt is in agreement with Reclast. She will stop her Boniva. Check vitamin D level, goal is above 30 ng/ml. documen dean in this encounter Plan of Treatment Not on filedocumented as of this encounter Results VITAMIN D, 25-HYDROXY, SERUM (12/29/2008 9:44 AM PDT) + + + + + + | Component | Value | Ref Range | Performed | Pathologist | | | | | At | Signature | + + + + + + | VITAMIN D | 43Comment: TEST | 30 - 80 ng/mL | | | | 25 HYDROXY | INFORMATION: VITAMIN D, | | | | | | 25-HYDROXYThis assay | | | | | | accurately quantifies | | | | | | the sum of vitamin | | | | | | D3,25-hydroxy and | | | | | | vitamin D2, 25-hydroxy. | | | | | | Deficiency: Less than | | | | | | 20 ng/mL Insufficiency: | | | | | | 20-29 ng/mL Optimum | | | | | | Level: 30-80 ng/mL | | | | | | Possible Toxicity: | | | | | | Greater than 80 | | | | | | ng/mLPerformed by [facility] | | | | | | Laboratories,[facility] | | | | | | [place] [address] | | | | | | [phone] | | | | | | Mathew robles, | | | | | | - Lab. Director | | | | + + + + + + + + | Specimen | + + | Blood - Blood | + + + + + + + | Performing | Address | City/State/Zipcode | Phone Number | | Organization | | | | + + + + + | [facility] | [address] | [place] [address] | | | PATHOLOGY | [address] | | | + + + + + PHOSPHORUS, PLASMA (12/29/2008 9:44 AM PDT) + +-------+ + + + | Component | Value | Ref Range | Performed | Pathologist | | | | | At | Signature | + +-------+ + + + | PHOSPHORUS, | 3.3 | 2.4 - 4.7 mg/dL | [facility] | | | PLASMA | | | DEPARTMENT | | | (LAB) | | | OF | | | | | | PATHOLOGY | | + +-------+ + + + + + | Specimen | + + | Blood - Blood | + + + + + | Narrative | Performed At | + + + | [id number] Estimated GFR > 60 mL/min/1.73 sq m if non- | [facility] | | [place] [id number] Estimated GFR > 60 mL/min/1.73 sq m if | DEPARTMENT OF | | Pry[place] GFR is estimated using the MDRD equation recommended by | PATHOLOGY | | the National Kidney Disease Education Program. Estimated GFR | | | Interpretive Information: <60 mL/min/1.73 sq m Chronic Kidney | | | Disease <15 mL/mon/1.73 sq m Kidney Failure Estimated GFR | | | greater than 60mL/min/1.73 is of limited clinical Value. The MDRD | | | equation is not valid in the following situations: - Patients under | | | 18 years of age - Severe malnutrition or obesity - Vegetarian diet | | | - Rapidly changing kidney function | | + + + + + + + + | Performing | Address | City/State/Zipcode | Phone Number | | Organization | | | | + + + + + | [facility] | [address] | [place] [address] | | | PATHOLOGY | [address] | | | + + + + + | [facility] | [address] | [place] [address] | | | PATHOLOGY | [address] | | | + + + + + COMPLETE METABOLIC SET (NA,K,CL,CO2,BUN,CREAT,GLUC,CA,AST,ALT,BILI TOTAL,ALK PHOS,ALB,PROT TOTAL) (12/29/2008 9:44 AM PDT) + +---------+ + + + | Component | Value | Ref Range | Performed | Pathologist | | | | | At | Signature | + +---------+ + + + | GLUCOSE, | 80 | 60 - 99 mg/dL | [facility] | | | PLASMA | | | DEPARTMENT | | | (LAB) | | | OF | | | | | | PATHOLOGY | | + +---------+ + + + | BUN, PLASMA | 14 | 6 - 20 mg/dL | [facility] | | | (LAB) | | | DEPARTMENT | | | | | | OF | | | | | | PATHOLOGY | | + +---------+ + + + | CREATININE | 0.93 | 0.60 - 1.10 | [facility] | | | PLASMA | | mg/dL | DEPARTMENT | | | (LAB) | | | OF | | | | | | PATHOLOGY | | + +---------+ + + + | TOTAL | 7.3 | 6.1 - 7.9 g/dL | [facility] | | | PROTEIN, | | | DEPARTMENT | | | PLASMA | | | OF | | | (LAB) | | | PATHOLOGY | | + +---------+ + + + | ALBUMIN, | 4.1 | 3.5 - 4.7 g/dL | [facility] | | | PLASMA | | | DEPARTMENT | | | (LAB) | | | OF | | | | | | PATHOLOGY | | + +---------+ + + + | CALCIUM, | 9.7 [...] + + + | ALK PHOS | 63 | 53 - 141 U/L | [facility] | | | | | | DEPARTMENT | | | | | | OF | | | | | | PATHOLOGY | | + +---------+ + + + | AST(SGOT) | 30 | 15 - 41 U/L | [facility] | | | | | | DEPARTMENT | | | | | | OF | | | | | | PATHOLOGY | | + +---------+ + + + | SODIUM, | 144 (H) | 134 - 143 | [facility] | | | PLASMA | | mmol/L | DEPARTMENT | | | (LAB) | | | OF | | | | | | PATHOLOGY | | + +---------+ + + + | POTASSIUM, | 3.7 | 3.4 - 5.0 | [facility] | | | PLASMA | | mmol/L | DEPARTMENT | | | (LAB) | | | OF | | | | | | PATHOLOGY | | + +---------+ + + + | CHLORIDE, | 108 | 97 - 108 mmol/L | [facility] | | | PLASMA | | | DEPARTMENT | | | (LAB) | | | OF | | | | | | PATHOLOGY | | + +---------+ + + + | TOTAL CO2, | 29 | 23 - 31 mmol/L | [facility] | | | PLASMA | | | DEPARTMENT | | | (LAB) | | | OF | | | | | | PATHOLOGY | | + +---------+ + + + | ALT (SGPT) | 24 | 13 - 48 U/L | [facility] | | | | | | DEPARTMENT | | | | | | OF | | | | | | PATHOLOGY | | + +---------+ + + + + + | Specimen | + + | Blood - Blood | + + + + + | Narrative | Performed At | + + + | [id number] Estimated GFR > 60 mL/min/1.73 sq m if non- | [facility] | | Prydein[place] [id number] Estimated GFR > 60 mL/min/1.73 sq m if | DEPARTMENT OF | | Prydeinig GFR is estimated using the MDRD equation recommended by | PATHOLOGY | | the National Kidney Disease Education Program. Estimated GFR | | | Interpretive Information: <60 mL/min/1.73 sq m Chronic Kidney | | | Disease <15 mL/mon/1.73 sq m Kidney Failure Estimated GFR | | | greater than 60mL/min/1.73 is of limited clinical Value. The MDRD | | | equation is not valid in the following situations: - Patients under | | | 18 years of age - Severe malnutrition or obesity - Vegetarian diet | | | - Rapidly changing kidney function | | + + + + + + + + | Performing | Address | City/State/Zipcode | Phone Number | | Organization | | | | + + + + + | [facility] | [address] | [place] [address] | | | PATHOLOGY | [address] | | | + + + + + | [facility] | [address] | [place] [address] | | | PATHOLOGY | [address] | | | + + + + + documented in this encounter Visit Diagnoses + + | Diagnosis | + + | Osteopenia - Primary Disorder of bone and cartilage, unspecified | + + documented in this encounter
--- OUTSIDE RECORDS SUMMARY | ~2020-05-04 | XMS | Encounter Summary ---
Demographics + + + | Address | [address] | | | [place] [address] | + + + | Home Phone [...] + | Gene Gee | ECON | [address] | | | | | [place], | | | | | [place] [address] | | + + + + + Care Team Providers + +------+ + | Care Web Methods Developer Name | Role | Phone | + +------+ + | Alec Hill MD | PCP | | + +------+ + Encounter Details +--------+ + + + + | Date | Type | Department | Care Team | Description | +--------+ + + + + | 07/30/ | Ancillary | [facility] | | | | 2007 | Registratio | Practice [address] | | | | | n | [facility], | | | | | | [place] [address] | | | | | | [phone] | | | +--------+ + + + [...]
--- OUTSIDE RECORDS SUMMARY | ~2020-05-04 | XMS | Encounter Summary ---
Demographics + + + | Address | [address] | | | [place] [address] | + + + | Home Phone [...] + | Gene Gee | ECON | [address] | | | | | [place], | | | | | [place] [address] | | + + + + + Care Team Providers + +------+ + | Care Extrusion Process Operator Name | Role | Phone | + +------+ + | Antony Ribera MD | PCP | | + +------+ + Reason for Visit + +--------+ + | Reason | Onset | Comments | | | Date | | + +--------+ + | Refill Request | 11/10/ | | | | 2014 | | + +--------+ + Encounter Details +--------+--------+ + + + | Date | Type | Department | Care Team | Description | +--------+--------+ + + + | 11/13/ | Refill | Cardiology | Gary Fuentes MD | Refill Request | | 2014 | | Arrhythmia at [facility] | [address] | | | | | [address] | [address] [place], | | | | | [facility] | [place] [address] | | | | | and Healing, | [phone] | | | | | [facility] | | | | | | Floor [place], [place] | | | | | | [address] | | | | | | [phone] | | | +--------+--------+ + + + [...] Telephone Encounter - Mayra Chapman RN - 11/13/2014 1:40 PM PDTKCl dose confirmed vi a last OV note 07/27/14. Follow-up scheduled for 01/11/15. Rx pended and routed to Dr. Fuentes for signature. documented in this encounter Plan of Treatment Not on filedocumented as of this encounter Visit Diagnoses + + | Diagnosis | + + | Atrial tachycardia 427.89 - Primary Other specified cardiac dysrhythmias | + + documented in this encounter"
--- OUTSIDE RECORDS SUMMARY | ~2020-05-04 | XMS | Encounter Summary ---
Demographics + + + | Address | [address] | | | [place] [address] | + + + | Home Phone [...] + | Gene Gee | ECON | [address] | | | | | [place], | | | | | [place] [address] | | + + + + + Care Team Providers + +------+ + | Care Graphic Technician Name | Role | Phone | + +------+ + | Alec Hill MD | PCP | | + +------+ + Encounter Details +--------+ + + + + | Date | Type | Department | Care Team | Description | +--------+ + + + + | 02/20/ | MyChart | Cardiology General | | Cardiology | | 2016 | Encounter | at [facility] [address] | | Appointment | | | | [facility] for | | scheduling | | | | Health and Healing, | | | | | | | | | | | | Floor [place], [place] | | | | | | [address] | | | | | | [phone] | | | +--------+ + + + [...]
--- OUTSIDE RECORDS SUMMARY | ~2020-05-04 | XMS | Encounter Summary ---
Demographics + + + | Address | [address] | | | [place] [address] | + + + | Home Phone [...] + | Gene Gee | ECON | [address] | | | | | [place], | | | | | [place] [address] | | + + + + + Care Team Providers + +------+ + | Care Lock Up Worker Name | Role | Phone | + +------+ + | Antony Ribera MD | PCP | | + +------+ + Encounter Details +--------+ + + + + | Date | Type | Department | Care Team | Description | +--------+ + + + + | 10/22/ | Hospital | Medicine | Tech, Pfl Adult | | | 2012 | Encounter | [facility] | Clinic [address] | | | | | [address] | [facility] | | | | | Loop Physician's | [place] [address] | | | | | Pavilion, 3rd floor | | | | | | [place], [place] | | | | | | [address] | | | | | | [phone] | | | +--------+ + + + [...] as of this encounter Procedure Urvashi Strong, Gisele - 10/25/2012 11:30 AM PDTAssociated Order(s): SPIROMETRY BEFORE / AFTER BRON CHODIL, PULM FUNCTION LAB do cumented in this encounter Plan of Treatment Not [...] encounter Results SPIROMETRY BEFORE / AFTER BRONCHODIL, PUL FUNCTION LAB (10/22/2012 12:08 PM PDT) + [...] + + + + + + | EIQ54-35% | 0.89 | 2.07 L/sec | [facility] | | | PRE | | | SPECIAL | | | | | | DIAGNOSTICS | | | | | | - | | | | | | PULMONARY | | | | | | FUNCTION | | + + + + + + | XOP48-25% | 43 | % | [facility] | | | PRE (%REF) | | | SPECIAL | | | | | | DIAGNOSTICS | | | | | | - | | | | | | PULMONARY | | | | | | FUNCTION | | + + + + + + | NBM35-61% | 1.37 | 2.07 L/sec | [facility] | | | POST | | | SPECIAL | | | | | | DIAGNOSTICS | | | | | | - | | | | | | PULMONARY | | | | | | FUNCTION | | + + + + + + | EWT60-14% | 66 | % | [facility] | [...] + + + | PULMONARY | Name: ADRIANA BAXTER | | [facility] | | | INTERPRETAT | ID# [id number] | | SPECIAL | | | ION | Date: | | DIAGNOSTICS | | | | 10/22/12 Age: 67 | | - | | | | Gender: | | PULMONARY | | | | Female | | FUNCTION | | | | Race: | | | | | | Height(in):Physician: | | | | | | JHONNY MEDINA | | | | | | Pattern Changer: | | | | | | ROSAS [...] Order# | | | | | | [id number] | | | | | | | [...] Ref | | | | | | Lody % Ref | | | | | [...] | | | | | | | 50GYT44-22% L/sec | | | | | | 2.07 0.89 | | | | | | 43 1.37 | | | | | | 66 | | | | | | [id number] L/sec | | | | | | 0.89 | | | | | | 1.34 | | | | | | | | | | | | 51PEF | | | | | | L/sec 6.06 | | | | | | 6.52 108 | | | | | | 7.17 118 | | | | | | 09RJL70% L/sec | | | | | | [...] | | | | | Page 1Name: ADRIANA BAXTER | | | | | | J ID: [id number] | | | | | | Date: [...] | + + | [facility] - 10/25/2012 11:30 AM PDT | + + + + + + + | Performing | Address | City/State/Zipcode | Phone Number | | Organization | | | | + + + + + | [facility] | [address] | [place], [place] | | | DIAGNOSTICS - | [address] | [address] | | | PULMONARY FUNCTION | | | | + + + + + documented in this encounter Visit Diagnoses + + | Diagnosis | + + | Asthma Unspecified asthma | + + documented in this encounter"
--- OUTSIDE RECORDS SUMMARY | ~2020-05-04 | XMS | Encounter Summary ---
Demographics + + + | Address | [address] | | | [place] [address] | + + + | Home Phone [...] + | Gene Gee | ECON | [address] | | | | | [place], | | | | | [place] [address] | | + + + + + Care Team Providers + +------+ + | Care Stock Ranch Supervisor Name | Role | Phone | + +------+ + PCP | Unavailable | + +------+ + Reason for Visit + +--------+ + | Reason | Onset | Comments | | | Date | | + +--------+ + | Medication | 01/03/ | | | management | 2006 | | + +--------+ + Encounter Details +--------+ + + + + | Date | Type | Department | Care Team | Description | +--------+ + + + + | 06/21/ | Telephone | Cardiology - | Alfredo, Gary, MD | Medication | | 2005 | | Arrhythmia [address] | [address] | management | | | | [address] | [address] [place], | | | | | Mailcode: [id number] | [place] [address] | | | | | Physician's Pavilion | [phone] | | | | | [address] | | | | | | [place], [place] | | | | | | [address] | | | | | | [phone] | | | +--------+ + + + [...] Telephone Encounter - Monique Middleton Np - 01/03/2006 10:06 AM PDTDoing well on moricizine( ethmozine)--tolerating well and controlling the rhythms well. Taking 200mg twice daily. Wi ll be starting Prozac for anxiety with upcoming trial. Also taking Ultram prn--said OK to t roly with moricizine. Will call if problems.Electronically signed by Monique Middleton Np at 10:06 AM PDTTelephone Encounter - Nayeli Matta - 01/03/2006 9:44 AM PDTCalling to report that she is doing fine on Ethmonzine, but does have a couple of quesitons. Please call. documented in this e ncounter Plan of Treatment Not on filedocumented as of this encounter Visit Diagnoses Not on filedocumented in this encounter"
--- OUTSIDE RECORDS SUMMARY | ~2020-05-04 | XMS | Encounter Summary ---
Demographics + + + | Address | [address] | | | [place] [address] | + + + | Home Phone [...] + | Gene Gee | ECON | [address] | | | | | [place], | | | | | [place] [address] | | + + + + + Care Team Providers + +------+ + | Care Flat Bed Knitter Name | Role | Phone | + [...] Description | +--------+---------+ + + + | 10/04/ | Surgery | [id number] | Errol Gold | RIGHT BREAST TISSUE | | 2012 | | [address] | MD [address] | GAS OPERATIONS ANALYST EXCHANGE TO | | | | [facility] | [facility] | SILICONE IMPLANT | | | | Hospital Admitting | [address], [place] | WITH CAPSULOTOMY, | | | | Desk Located on the | [phone] | CAPSULECTOMY, VS | | | | 9th floor | | RECONSTRUCTIONREVISI | | | | [place], [place] | | ON AND LEFT BREAST | | | | [phone] | | LIFT FOR SYMMETRY. | | | | | | Specimens x 4 | +--------+---------+ + + + Social History [...] + + + | Blood Pressure | 107/64 | 10/05/2012 7:46 AM | | | | | PDT | | + + + + + | Pulse | 73 | 10/05/2012 7:46 AM | | | | | PDT | | + + + + + | Temperature | 36.6 C (97.9 F) | 10/05/2012 7:46 AM | | | | | PDT | | + + + + + | Respiratory Rate | 18 | 10/05/2012 7:46 AM | | | | | PDT | | + + + + + | Oxygen Saturation | 100% | 10/05/2012 7:46 AM | | | | | PDT | | + + + + + | Inhaled Oxygen | - | - | | | Concentration | | | | + + + + + | Weight | 66.3 kg (146 lb 2.6 | 10/04/2012 6:07 AM | | | | oz) | PDT | | + + + + + | Height | 166.4 cm (5' 5.51") | 10/04/2012 6:07 AM | | | | | PDT | | + + + + + | Body Mass Index | 23.94 | 10/04/2012 6:07 AM | | | | | PDT | | + + + + + documented in this encounter Discharge Summaries Seb Potts MD - 10/05/2012 7:50 AM PDTFormatting of this note might be differe nt from the original. INPATIENT DISCHARGE SUMMARY: Attending Physician: Errol Gold MD PCP: Latosha Ribera MD Patient: Adriana Flynn Admission Date: 10/04/2012 Discharge Date: 10/05/2012 Service: [facility] Plastic Surgery Diagnoses Principal Final Diagnosis: 1. 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 She was monitored overnight for her history of tachycardia without complication and was discharged home the next day. Diet Regular Regular diet- There are no restrictions to your diet. You may eat or drink whatever you pr efer, though healthy food choices are recommended. Activity No activity restrictions Vital Signs at discharge as appropriate: BP: 101/53 mmHg (10/05/1234) Pulse: 66 (10/05/1234) Resp: 20 (10/05/12633) Weight: 66.3 kg (146 lb 2.6 oz) (10/04/12606) Current Discharge Medication List START taking these medications Details clindamycin 300 mg Oral capsule Take 2 Caps by mouth every eight hours for 5 days. Qty: 30 Cap, Refills: 0 CONTINUE these medications which have NOT CHANGED Details atenolol 50 mg Oral Tablet Take 25 mg by mouth two times daily. 1/2 tablet twice daily budesonide (PULMICORT FLEXHALER) 180 mcg/actuation Inhalation Aerosol Powdr Breath Activate d Inhale 3 Puffs two times daily. calcium [...] once daily. fluticasone (FLONASE) 50 mcg/actuation Nasal [place], Suspension Instill 1 [place] into each no stril two times daily. Qty: 1 Each, Refills: 6 Glucosamine 1,000 mg Oral Tablet one daily HYDROcodone-acetaminophen (VICODIN) 5-500 mg Oral tablet Take 1 Tab by mouth every four analisa rs as needed (for pain.). Not to exceed 6 tablets per any 24 hour period. (Not to exceed 325 0 mg of acetaminophen from all products per 24 hour period.) Qty: 30 Tab, Refills: 0 LORAZEPAM 1 mg Oral tablet 0.5 Tabs Q HS PRN. Methylcellulose, Laxative, (CITRUCEL) Oral Powder Take by mouth. MULTIVITAMIN OR one daily potassium chloride SR 20 mEq Oral tablet,ER particles/crystals Take 1 Tab by mouth once bay ly. Qty: 90 Tab, Refills: 4 Associated Diagnoses: Other specified cardiac dysrhythmias rabeprazole (ACIPHEX) 20 mg Oral Tablet, Delayed Release (E.C.) Take 20 mg by mouth every t welve hours. Vitamin A-Vitamin C-Vit E-Min (ANTIOXIDANT FORMULA) Oral Capsule take 1 capsule by oral rou te once daily with food VITAMIN D ORAL 2000 IU daily STOP taking these medications cephALEXin (KEFLEX) 500 mg Oral capsule Comments: Reason for Stopping: Destination: Destination: Home Condition on Discharge Good PCP:Latosha Ribera MD When: Please follow-up with your primary care physician as soon as possible to review new medications and recent interventions Other Discharge Orders and Instructions Medication Refill Instructions: If you need a refill on any narcotic pain medications, please call the clinic ([phone] ) by 2 pm on for any [...] doctor through the plastic surgery clinic at [phone]. Please ke ep in mind that you [...] dry towels to dry. Do not rub. Lifting: No heavy lifting greater than 10 lbs. Special Instructions/Tests: None Does patient have a planned readmission: No Discharge Summary Completed?: Yes. 10/05/2012 Discharging Provider: SEB POTTS MD Date Completed: 10/05/2012 Time Completed: 7:50 AM Discharging Attending: MD Liv Huffman MD Resident, [facility], Dept. of Surgery Pager [phone] documented in this encounter Discharge Instructions Instructions Mallika Bolton RN - 10/05/2012Patient Education Materials: Additional Instructions: Discharge Nurse: Mallika Bolton Date: 10/05/2012 Discharge Time: 8:45 AM documented in this encounter Medications at [...] + + + +---------+ + + | clindamycin 300 mg | Take 2 Caps by mouth | 30 Cap | 0 | 10/06/19 | | | Oral capsule | every eight hours | | | 13 | 3 | | | for 5 days. | | | | | + + + +---------+ + + documented as of this encounter Progress Notes Seb Potts MD - 10/05/2012 7:28 AM PDT PLASTIC SURGERY PROGRESS NOTE: Hospital Day:1 Author; SEB POTTS MD Attending Physician: Mark Gold MD Interval History: Doing well, no issues. No tachycardia overngiht Physical Exam: Last Vitals: BP 101/53 | Pulse 66 | Temp 36.6 C (97.9 F) | RR 20 | Ht 1.664 m (5' 5.51" ) | Wt 66.3 kg (146 lb 2.6 oz) | SpO2 100% | BMI 23.94 kg/(m^2) O2 Delivery Device: None (room air) (10/05/12 0634) 24 Hour Vital Min/Max: Systolic (24hrs), Av mmHg, Min:99 mmHg, Max:148 mmHgDiastolic (24hrs), Av mmHg, Mi n:53 mmHg, Max:78 mmHgPulse Av.7 Min: 60 Max: 86 Temp Av.4 C (97.6 F) Min: 35.5 C (95.9 F) Max: 36.7 C (98.1 F) Resp Av.8 Min: 10 Max: 20 SpO2 Av.8 % Min: 96 % Max: 100 % Exam: Bilateral breasts with bruising of the nipple and ecchymoses. Nipples with good capillary refill and sensation. Mildly congested on the left. Incisions C/D/I with dermabona Assessment and Plan: Adriana Flynn is a 67 y.o. female who is S/P right breast TE -> implant with left breast li ft for symmetry Pain control Continue antibiotics Plan for discharge today SEB POTTS MD Senior Data Integration Developer Department of Plastic Surgery [facility] 10/05/2012 7:28 AM Anabelle Buchanan, Mark Holman - 10/04/2012 11:14 AM PDTPatient to be admitted to telemetry for 23h observation aft er bilateral breast surgery due to history of arrhythmia. Please see Pre-operative Medicine recommendations. Please page resident setter induction heating equipment with any questions. documented in this encounter H&P Notes Other, Faculty - 10/09/2012 11:06 AM PDTElectronically signed by Faculty Other at 11:06 AM PDTdocumented in this encounter Procedure Notes Other, Faculty - 10/09/2012 11:06 AM PDTAssociated Order(s): PROCEDURE NOTEElectronically s igned by Faculty Other at 10/09/2012 11:06 AM Anabelle Buchanan, Hemangini J - 10/04/2012 5:56 P M PDTAssociated Order(s): PROCEDURE NOTEPLASTIC SURGERY OPERATIVE NOTE Procedure Date: 10/04/2012 Attending Physician: Mark Gold MD Assistants: Santiago Quijano PA-C Preoperative Diagnosis: Acquired absence of breast, right History of breast cancer Disproportion of breast reconstruction Postoperative Diagnosis: As above Procedure Performed: right breast tissue stoner out removal with placement of silicone implants, right breast caps ulotomy and lateral capsulorrhaphy, left breast mastopexy for symmetry Anesthesia: GETA Estimated Blood Loss: 75 cc Specimens: right and left breast Complications: none Findings: Right breast implant: Allergan Natrelle Smooth Round Style 20 Silicone Gel Breast Implant , Reference Number: [id number], Serial Number: [id number] Left breast: 50 g removed Disposition: Extubated, awake and alert to PACU. Statement of Faculty Presence: Dr. Gold was present for the entirety of this case. Statement of Medical Necessity: Ms. Flynn is a 67 y.o. female with a history of breast canc er who has undergone right mastectomy with tissue stoner out reconstruction. At this time, sh raquel presents for right tissue stoner out removal and implant placement with capsulectomy or caps ulotomy and contralateral breast lift for symmetry. The risks including but not limited to p ain, scar, infection, cosmetic defect, bleeding, hematoma, seroma, bruising, need for additi onal procedures, failure of the implant such as rupture, contracture, need for removal of th e implant, and failure to heal, risks associated with general endotracheal anesthesia such a s cardiac or pulmonary problems, blood clots to the legs or the lungs or even were mary cribed to the patient in full. In addition, the patient was given an ASPS consent form with further details which the patient signed and returned to our clinic. All questions were answ ered. The patient gave her informed consent which can be found on the chart. The surgical si te was marked preoperatively. In addition, the patient was marked for symmetry. Description of procedure: Patient was brought to the operating room and placed on the opera ting room table in the supine position. All pressure points were padded. Ancef was administe red for perioperative antibiosis. Sequential compression devices were placed on the bilatera l lower extremities for deep venous thrombosis prophylaxis. General endotracheal anesthesia was then induced and the patient was intubated successfully. After a surgical pause was take n where the patient's name, medical record number, and surgical site was verified, we began with prepping and draping the chest in the usual sterile fashion. We began with the right br east. The previous mastectomy scar was excised using a #15 blade. This was passed off the fi eld as a surgical specimen. We then proceeded with electrocautery through the subcutaneous t issues until the pectoralis muscle was identified. The pectoralis muscle was incised using e lectrocautery. The tissue stoner out was encountered and noted to be intact. It was punctured and removed. The subpectoral pocket was irrigated copiously with sterile saline. The infero medial capsule was then incised using electrocautery to expand an area of scar and tethering . Lateral breast and axillary internal scar was released with electrocautery. The lateral b reast capsule and inferior breast capsule where then sutured to the chest wall with interrup dean 2-0 Polysorb sutures in a [id number] fashion. A 450 cc style 20 sizer was placed in to the breast pocket. The patient was then sat up to verify breast implant position. The patient was then returne d to the supine position and the sizer was removed. Hemostasis was achieved using electrocau joel. Double antibiotic solution (500 cc saline, 80 mg Gentamycin and 1 gm Ancef) was then u sed to irrigate the breast pocket. Using a no-touch technique, we changed our gloves and sandi yesika 450 cc Allergan Natrelle Smooth Round Style 20 Silicone Gel Breast Implant in the jillian st pocket. The breast capsule was then closed with interrupted 2-0 Polysorb sutures. Subderm al sutures were then placed using running 3-0 V-LOC 90 sutures as well. 10 mL of bupivacain e 0.5% was injected into the breast pocket prior to closure and an additional 10 cc was used as a rib block on the right side. The skin was closed then using a 4-0 Biosyn suture in a r unning subcuticular fashion. Our attention was then turned to the contralateral side. The nipple was marked with a 38 mm cookie cutter. The skin was incised circumareolarly with a #15 blade. The breast skin and s ubcutaneous tissue was then elevated circumferentially from the breast using electrocautery. The breast pocket was irrigated with saline. Hemostasis was achieved with electrocautery. T he breast flaps were approximately 2 cm thick. The patient was placed in the upright positio n and a vertical mastopexy was marked to match the implant side. This was tailor-tacked. The new nipple position was marked with a 38 mm cookie cutter. The patient was then re-placed i n the supine position. The inferior breast was de-epithelialized. 50 g of lateral breast tis candie was removed to aid with symmetry. The new nipple position was incised with a #15 blade. All breast tissues were passed off the table as surgical specimen. Hemostasis was noted. 10 mL of bupivacaine 0.5% was injected into the breast pocket prior to closure and an additiona l 10 cc was used as a rib block on the left side. The breast capsule was then closed with in terrupted 2-0 Polysorb sutures. Subdermal sutures were then placed using running 3-0 V-LOC 90 sutures as well. The skin was closed with a running 4-0 Biosyn suture in a subcuticular f ashion. The wounds were cleansed and dried, and Dermabond was applied to the incisions. The patient tolerated the procedure well and without complication. She was awakened from general endotr acheal anesthesia and extubated successfully. She was transported to the post-anesthesia car e unit in stable condition. Addendum: A certified physician's cafe assistant was required because no qualified residential caregiver was available for this procedure. documented in this encounter Miscellaneous Notes Scan - Other, Faculty - 10/09/2012 11:06 AM PDTElectronically signed by Faculty Other at 11:06 AM PDTScan - Other, Faculty - 10/09/2012 11:06 AM PDT can - Other, Faculty - 10/09/2012 11:06 AM PDTElec tronically signed by Faculty Other at 10/09/2012 11:06 AM PDTScan - Other, Faculty - 013 11:06 AM PDT valuation - YarielKelleeLaisha - 10/05/2012 6:26 AM PDTProblem: General Plan of Care (Adult) Intervention: NPEOC Acute Nursing Goals: established with eye-level conversation with patient. 1.) Patient will rate pain <5 /10 2.) Patient will achieve good rest/sleep for healing 3.) Patient will maintain skin integrity 4.) Patient will be without falls Interventions: 1.) Assess pain every 3 hours and PRN. Offer and administer medication as needed 2.) Encourage good sleep/rest by turning off TV and lights and providing quiet environment. 3.) Offer and provide assistance with repositioning to provide good rest/sleep. 4.) Bed in low position with brakes locked, side rails x2, room near station, call light in reach, clutter free environment with needed personal items in reach Interventions that worked/didn't work:pt comfortable, did not want to wear continuous pulse oximeter, MD notified, and orders received, My recommendations forward:continue with current plan Patient Stability:Moderately Stable andoff Bev Tran - 10/05/2012 6:24 AM PDT . Ortho Nursing Handoff Report Primary focus of stay: R breast reconstruction and implant exchange and L breast lift for s ymmetry. 10/04/12 PmHx: Past Medical History Diagnosis Date Sjogrens syndrome [...] 09/2008 Deep vein thrombosis of lower extremity Pertinent physical findings: RA, A&Ox4, on Tele for history of a-tachycardia (per pt) (her e for overnight observation due to a-fib history), no BP R arm!!! You can do the BP on the L UE Vitals: VSS Access/Fluids: SL Diet/GI: regular diet- denies n/v : voids Mobility: up ind. Wounds/Drains: bilateral breast incisions open to air Left side draining some, Plastics Here, said she could lay a dressing over, not necessary to cover breast with dressing. Critical Labs: Critical Meds: Orders to follow up on: Last pain assessment/reassessment: painful after up and walking in halls. Took 1 tab of lily alfreda. Psych/social issues: none, very pleasant Last patient visit (i.e. Falls/Activity/Comfort/Environment/Toileting/Skin): prior to repor t resting Anticipated or pending procedures: discharge Discharge plan: this morning please lan of Care - Laisha Antoine - 10/05/2012 3:18 AM PDTProblem: General Plan of Care (Adult) Intervention: NPEOC Acute Problem: General Plan of Care (Adult) Nursing Goals: established with eye-level conversation with patient. 1.) Patient will rate pain <5 /10 2.) Patient will achieve good rest/sleep for healing 3.) Patient will maintain skin integrity 4.) Patient will be without falls Interventions: 1.) Assess pain every 3 hours and PRN. Offer and administer medication as needed 2.) Encourage good sleep/rest by turning off TV and lights and providing quiet environment. 3.) Offer and provide assistance with repositioning to provide good rest/sleep. 4.) Bed in low position with brakes locked, side rails x2, room near station, call light in reach, clutter free environment with needed personal items in reach valuation - Ernesto Mcdaniel RN - 10/04/2012 11:06 PM PDTProblem: General Plan of Care (Adult) Goal: Individualization/Patient-Specific Goal Goals: Manage pain Monitor for cardiac changes Interventions: Assess for pain. Medicate as needed. Reassess after meds given. Continue to monitor Pt to wear remote tele monitor. Maintain contact with [employer] television engineering teacher. Continue to assess p t Interventions that worked/didn't work:worked-- medicate as needed. My recommendations forward:keep pt informed of care Patient Stability:Moderately Unstable lan of Care - Ernesto Banks RN - 10/04/2012 8:13 PM PDTProblem: General Plan of Care (Adult) Goal: Individualization/Patient-Specific Goal Goals: Manage pain Monitor for cardiac changes Interventions: Assess for pain. Medicate as needed. Reassess after meds given. Continue to monitor Pt to wear remote tele monitor. Maintain contact with [employer] television engineering teacher. Continue to assess p t andoff - Ernesto Us RN - 10/04/2012 8:08 PM PDTFormatting of this note might be different from the orig inal. Ortho Nursing Handoff Report Primary focus of stay: R breast reconstruction and implant exchange and L breast lift for s ymmetry. 10/04/12 PmHx: Past Medical History Diagnosis Date Sjogrens syndrome [...] 09/2008 Deep vein thrombosis of lower extremity Pertinent physical findings: RA, A&Ox4, on Tele for history of a-tachycardia (per pt) (her e for overnight observation due to a-fib history), no BP R arm!!! You can do the BP on the LUE Vitals: VSS Access/Fluids: SL Diet/GI: regular diet- denies n/v CBGs: : voids Mobility: up ind. Wounds/Drains: bilateral breast incisions open to air Left side draining some, Plastics Here, said she could lay a dressing over, not necessary to cover breast with dressing. Wi ll need to change gown often due to drainage Critical Labs: Critical Meds: Orders to follow up on: Last pain assessment/reassessment: painful after up and walking in halls. Took 1 tab of vi codin. Psych/social issues: none, very pleasant Last patient visit (i.e. Falls/Activity/Comfort/Environment/Toileting/Skin): resting Anticipated or pending procedures: Discharge plan: am?? valuation - Dionne Epstein RN - 10/04/2012 3:01 PM PDTProblem: Pain, Acute (Adult, Obstetrics) Goal: Identify Signs and Symptoms and Related Risk Factors Goals: 1.) Patient will rate pain <3/10 and will manage pain on oral medication 2.) Patient will have normal bowel movements 3.) Patient will maintain skin integrity 4.) Patient will be without falls Interventions: 1.) Assess pain every 3 hours and PRN offer and administer medication as needed 2.) Provide patient with bowel care medications and encourage PO fluids and mobility to pre vent constipation 3.) Encourage patient to mobilize as much as possible, including moving in bed, turn Q 2hrs 4.) Offer and provide assistance to bathroom Q2-3hours and as needed, call light in reach. Interventions that worked/didn't work: Assess pain every 3 hours and PRN My recommendations forward:continue current care Patient Stability:Moderately Stable andoff - Dionne Wright RN - 10/04/2012 2:51 PM PDTFormatting of this note might be different from the orig inal. Ortho Nursing Handoff Report Primary focus of stay: R breast reconstruction and implant exchange and L breast lift for s ymmetry. 10/04/12 PmHx: Past Medical History Diagnosis Date Sjogrens syndrome [...] 09/2008 Deep vein thrombosis of lower extremity Pertinent physical findings: RA, A&Ox4, on Tele for history of a-fib (here for overnight ob servation due to a-fib history), no BP R arm!!! Vitals: VSS Access/Fluids: PIV- can be SL Diet/GI: regular diet- denies n/v CBGs: : voids Mobility: up ind. Wounds/Drains: bilateral breast incisions open to air Critical Labs: Critical Meds: Orders to follow up on: Last pain assessment/reassessment: denies pain Psych/social issues: none, very pleasant Last patient visit (i.e. Falls/Activity/Comfort/Environment/Toileting/Skin): resting with f amily Anticipated or pending procedures: Discharge plan: am?? lan of Care - Dionne Fay RN - 10/04/2012 2:51 PM PDTProblem: Pain, Acute (Adult, Obstetrics) Goal: Identify Signs and Symptoms and Related Risk Factors Goals: 1.) Patient will rate pain <3/10 and will manage pain on oral medication 2.) Patient will have normal bowel movements 3.) Patient will maintain skin integrity 4.) Patient will be without falls Interventions: 1.) Assess pain every 3 hours and PRN offer and administer medication as needed 2.) Provide patient with bowel care medications and encourage PO fluids and mobility to pre vent constipation 3.) Encourage patient to mobilize as much as possible, including moving in bed, turn Q 2hrs 4.) Offer and provide assistance to bathroom Q2-3hours and as needed, call light in reach. andoff - Jacqueline Vizcarra - 10/04/2012 12:45 PM PDTMeets Phase I Discharge Criteria (Stable For Transfer): Y es. Pain is controlled. 02 sat 98% on 2L/NC. Incisions dry and intact to bilateral breasts. Major deviations/events or pertinent findings of aurelia-operative stay: none Anticipated post-op needs/devices/follow up: pain control Post-Op Diagnosis Codes: * Acquired absence of breast and nipple [V45.71] * Deformity of reconstructed breast [612.0] * Disproportion of reconstructed breast [612.1] Surgical Procedure Planned - Actual Procedure Performed: BREAST RECONSTRUCTION IMPLANT EXCHANGE (GAS OPERATIONS ANALYST OUT/IMPLANT IN) SALINE - RIGHT BREAST TIS CANDIE GAS OPERATIONS ANALYST EXCHANGE TO SILICONE IMPLANT WITH CAPSULOTOMY, CAPSULECTOMY, VS RECONSTRUCTIONR EVISION AND LEFT BREAST LIFT FOR SYMMETRY. Specimens x 4 Anesthesia: General Length of procedure: In Room/Out of Room: 3 Hr 38 Min 0 Sec Surgeon(s) and Role: * Errol Gold MD - Primary OR positioning comments: supine Neuro: POSS Sedation Level: Slighty Drowsy Last pain medication given: none Pain medication totals: 0 Additional pain medication information: no Functional Epidural: N/A CLAY MINER: No Respiratory: RR: 15 , O2 Sat: 99 %, O2 Delivery: Nasal cannula Breath Sounds: WDL JOSEFINA: clear LLL: clear RUL: clear RLL: clear MAURO No Comment: Cardiac: BP: 135/73 mmHg HR: 73 GI: Nausea/Vomiting Status: No Signs/Symptoms: Interventions: Assessment: Comments:no nausea : Last void:Pre-op Contact Name: gene Contact Number: [phone] Family contacted: Yes Comment:[id number] Belongings:with family documented in this enco unter Plan of Treatment Not on filedocumented as of this encounter Procedures + +--------+ + + + | Procedure Name | Priori | Date/Time | Associated Diagnosis | Comments | | | ty | | | | + +--------+ + + + | PROCEDURE NOTE | Routin | 08/19/2015 | | Results for this | | | e | 11:13 PM | | procedure are in the | | | | PST | | results section. | + +--------+ + + + | PROCEDURE NOTE | Routin | 08/19/2015 | | Results for this | | | e | 11:11 PM | | procedure are in the | | | | PST | | results section. | + +--------+ + + + | TYPE AND SCREEN | Urgent | 10/04/2012 | | Results for this | | | | 8:26 AM | | procedure are in the | | | | PDT | | results section. | + +--------+ + + + | BREAST | Electi | 10/04/2012 | Acquired absence | | | RECONSTRUCTION | ve | 7:38 AM | of breast and nipple | | | IMPLANT EXCHANGE | Surgic | PDT | Deformity of | | | (GAS OPERATIONS ANALYST | al | | reconstructed breast | | | OUT/IMPLANT IN) | | | Disproportion of | | | SALINE | | | reconstructed breast | | + +--------+ + + + +---+--------+ | | | | | Specia | | | l | | | Needs | | | 23HR | | | OBS | +---+--------+ + +--------+ +---+ + | ANTIBODY SCREEN | Urgent | 10/04/2012 | | Results for this | | | | 6:57 AM | | procedure are in the | | | | PDT | | results section. | + +--------+ +---+ + | ABO & RH TYPE | Urgent | 10/04/2012 | | Results for this | | | | 6:57 AM | | procedure are in the | | | | PDT | | results section. | + +--------+ +---+ + | SURGICAL PATHOLOGY | Routin | 10/04/2012 | | Results for this | | | e | | | procedure are in the | | | | | | results section. | + +--------+ +---+ + documented in this encounter Results PROCEDURE NOTE (08/19/2015 11:13 PM PST)PROCEDURE NOTE (08/19/2015 11:11 PM PST) + + | Transcriptions | + + | Other, Faculty - 10/09/2012 11:06 AM PDT | + + ANTIBODY SCREEN (10/04/2012 6:57 AM PDT) + + + + + + | Component | Value | Ref Range | Performed | Pathologist | | | | | At | Signature | + + + + + + | Antibody | Negative | | [facility] | | | Screen | | | LABORATORY | | | | | | SERVICES, | | | | | | TRANSFUSION | | | | | | MEDICINE | | + + + + + + + + | Specimen | + + | Blood - Blood | + + + + + + + | Performing | Address | City/State/Zipcode | Phone Number | | Organization | | | | + + + + + | [facility] | [address] | [place] [address] | | | SERVICES, | [address] | | | | TRANSFUSION MEDICINE | | | | + + + + + ABO & RH TYPE (10/04/2012 6:57 AM PDT) + + + + + + | Component | Value | Ref Range | Performed | Pathologist | | | | | At | Signature | + + + + + + | ABO Group | B | | [facility] | | | | | | LABORATORY | | | | | | SERVICES, | | | | | | TRANSFUSION | | | | | | MEDICINE | | + + + + + + | Rh Type | Positive | | [facility] | | | | | | LABORATORY | | | | | | SERVICES, | | | | | | TRANSFUSION | | | | | | MEDICINE | | + + + + + + + + | Specimen | + + | Blood - Blood | + + + + + + + | Performing | Address | City/State/Zipcode | Phone Number | | Organization | | | | + + + + + | [facility] | [address] | [place] [address] | | | SERVICES, | [address] | | | | TRANSFUSION MEDICINE | | | | + + + + + SURGICAL PATHOLOGY (10/04/2012) + + + + + + | Component | Value | Ref Range | Performed | Pathologist | | | | | At | Signature | + + + + + + | SURGICAL | SOURCE OF SPECIMEN:A | | [facility] | | | PATHOLOGY | Right breast scar h/o | | DEPARTMENT | | | | breast cancerSOURCE OF | | OF | | | | SPECIMEN:B Right breast | | PATHOLOGY | | | | capsuleSOURCE OF | | | | | | SPECIMEN:C Left breast | | | | | | massSOURCE OF SPECIMEN:D | | | | | | Left breast tissue | | | | | | Final Pathologic | | | | | | Diagnosis:A: Right | | | | | | breast scar, history of | | | | | | breast cancer, | | | | | | reconstruction: - | | | | | | Skin, breast parenchyma, | | | | | | and connective tissue | | | | | | with surgical | | | | | | sitechanges - | | | | | | Negative for malignancy | | | | | | B: Right breast | | | | | | capsule: - | | | | | | Fibrotic connective | | | | | | tissue - Negative | | | | | | for malignancy C: | | | | | | Left breast mass: | | | | | | - Breast parenchyma | | | | | | with fibrocystic changes | | | | | | and focal calcification | | | | | | - Negative for | | | | | | malignancy D: | | | | | | Left breast tissue: | | | | | | - Skin and | | | | | | underlying connective | | | | | | tissue with scar - | | | | | | Negative for malignancy | | | | | | Case seen | | | | | | by:Bradley Montgomery/Student | | | | | | Nolan Rodriguez | | | | | | Declan Cervantes, | | | | | | PathologistT:10/07//sg | | | | | | Clinical | | | | | | History:The patient is a | | | | | | 67-year-old female | | | | | | status post breast | | | | | | cancer | | | | | | | | | | | | reconstruction with | | | | | | implant exchange. | | | | | | Gross | | | | | | Description:Received are | | | | | | 4 specimens fresh in | | | | | | containers labeled with | | | | | | the patient | | | | | | name(initials CB) and: | | | | | | A: Right breast | | | | | | scar history of breast | | | | | | cancer: Received is an | | | | | | elongatedskin excision | | | | | | measuring 9 x 0.3 x 0.5 | | | | | | cm and an additional | | | | | | yellow-redattached piece | | | | | | of adipose tissue | | | | | | measuring 1.6 x 1.3 x | | | | | | 0.4 cm. The | | | | | | entirespecimen is | | | | | | submitted. The | | | | | | specimen has an ischemic | | | | | | time of 8:12 on | | | | | | 10/04/2012. The | | | | | | specimen isplaced in | | | | | | formalin at 12:10 on | | | | | | 10/04/2012 and put in the | | | | | | breast processorfixing | | | | | | until 10:00 p.m. on | | | | | | 10/04/2012. B: | | | | | | Right breast capsule: | | | | | | Received are multiple | | | | | | rubbery/soft, | | | | | | evangelista-redpieces of tissue | | | | | | measuring 5.5 x 3 x 1 cm | | | | | | in aggregate. The | | | | | | surfaces arepartially | | | | | | smooth/shaggy with no | | | | | | grossly identified | | | | | | lesion. | | | | | | Representativesections | | | | | | are submitted. | | | | | | The specimen has an | | | | | | ischemic time of 8:45 on | | | | | | 10/04/2012. The | | | | | | specimen isplaced in | | | | | | formalin at 9:40 on | | | | | | 10/04/2012 and put in the | | | | | | breast processorfixing | | | | | | until 10:00 p.m. on | | | | | | 10/04/2012. C: | | | | | | Left breast mass: | | | | | | Received is a | | | | | | 2.4-gram, 2.5 x 1.8 x | | | | | | 1.4-cm,lobulated, | | | | | | yellow-pink piece of | | | | | | adipose tissue with | | | | | | focal cautery. | | | | | | Theentire specimen is | | | | | | inked black. | | | | | | Sectioning through the | | | | | | specimen revealsyellow, | | | | | | fibrofatty tissues. | | | | | | No lesions or nodules | | | | | | are grossly | | | | | | identified.The specimen | | | | | | is trisected and | | | | | | entirely submitted. | | | | | | The specimen has an | | | | | | ischemic time of 9:45 on | | | | | | 10/04/2012. The | | | | | | specimen isplaced in | | | | | | formalin at 10:35 on | | | | | | 10/04/2012 and put in the | | | | | | breast processorfixing | | | | | | until 10:00 p.m. on | | | | | | 10/04/2012. D: | | | | | | Left breast tissue: | | | | | | Received weighing 40.8 | | | | | | grams, measuring 5 x 4 | | | | | | x 4cm are multiple | | | | | | yellow-red, lobulated | | | | | | adipose tissue and | | | | | | multiple skinfragments. | | | | | | The largest portion of | | | | | | tissue with attached | | | | | | skin measures 5.5 x5.5 x | | | | | | 1.3 cm and is inked | | | | | | black. The epidermal | | | | | | surface is evangelista-pink | | | | | | andgrossly unremarkable. | | | | | | Sectioning through | | | | | | the tissue reveals no | | | | | | grosslyidentified | | | | | | lesions or nodules. | | | | | | Director [employer] | | | | | | sections are submitted. | | | | | | The specimen has | | | | | | an ischemic time of | | | | | | 10:25 on 10/04/2012. | | | | | | The specimen isplaced | | | | | | in formalin at 12:10 on | | | | | | 10/04/2012 and put in the | | | | | | breast processorfixing | | | | | | until 10:00 p.m. on | | | | | | 10/04/2012. | | | | | | Cassette Index:A: | | | | | | Right breast scar | | | | | | history of breast | | | | | | cancer:A1-2B: Right | | | | | | breast capsule:B1C: | | | | | | Left breast | | | | | | mass:C1-3D: Left | | | | | | breast tissue:D1-3AMJ:tp | | | | | | My [...] Diagnostician: | | | | | | Dionicio Cervantes | | | | | | DeclanPathologistElectroni | | | | | | will Signed 10/08/2012 | | | | | | 1:56PM | | | | + + + + + + + + | Specimen | + + | | + + + + + + + | Performing | Address | City/State/Zipcode | Phone Number | | Organization | | | | + + + + + | [facility] | [address] | [place] [address] | | | PATHOLOGY | [address] | | | + + + + + documented in this encounter Visit Diagnoses + + | Diagnosis | + + | Acquired absence of breast and nipple | + + | Deformity of reconstructed breast | + + | Disproportion of reconstructed breast | + + documented in this encounter Administered Medications + +--------+ +-------+------+------+ | Medication Order | MAR | Action | Dose | Rate | Site | | | Action | Date | | | | + +--------+ +-------+------+------+ | atenolol (aka TENORMIN) tablet | Given | 10/05/19 | 25 mg | | | | 25 mg 25 mg, oral, TWICE DAILY, | | 13 10:23 | | | | | First dose on Sun10/04/12 at | | PM PDT | | | | | 2100, Until Discontinued | | | | | | + +--------+ +-------+------+------+ +---+---+ | | | +---+---+ + +-------+ +-------+---+--------+ | bupivacaine (PF) (aka | Given | 10/05/19 | 42 mL | | Right | | MARCAINE,SENSORCAINE-MPF) | | 13 9:46 | | | Breast | | injection INTRAPROCEDURE PRN, | | AM PDT | | | | | Starting Sun10/04/12 at 0946, | | | | | | | Until Sun10/04/12 at 1122 | | | | | | + +-------+ +-------+---+--------+ +---+---+ | | | +---+---+ + +-------+ +-----+---+--------+ | ceFAZolin (aka ANCEF) injection | Given | 10/05/19 | 1 g | | Right | | INTRAPROCEDURE PRN, Starting | | 13 9:31 | | | Breast | | 10/04/12 at 0931, Until Fri | | AM PDT | | | | | 10/04/12 at 1122 | | | | | | + +-------+ +-----+---+--------+ +---+---+ | | | +---+---+ + +-------+ +--------+---+---+ | cephALEXin (aka KEFLEX) capsule | Given | 10/05/19 | 500 mg | | | | 500 mg 500 mg, oral, THREE | | 13 10:23 | | | | | TIMES DAILY, First dose on Fri | | PM PDT | | | | | 10/04/12 at 1830, Until | | | | | | | Discontinued | | | | | | + +-------+ +--------+---+---+ +-------+ +--------+---+---+ | Given | 10/05/19 | 500 mg | | | | | 13 6:42 | | | | | | PM PDT | | | | +-------+ +--------+---+---+ +---+---+ | | | +---+---+ + +-------+ +---------+---+---+ | fluticasone (aka FLONASE) 50 | Given | 10/05/19 | 1 spray | | | | mcg/actuation nasal spray 1 [place] | | 13 10:23 | | | | | 1 spray, both nostrils, TWICE | | PM PDT | | | | | DAILY, First dose on Sun10/04/12 | | | | | | | at 2100, Until Discontinued | | | | | | + +-------+ +---------+---+---+ +---+---+ | | | +---+---+ + +---------+ +-------+---+--------+ | gentamicin (aka GARAMYCIN) IV | New Bag | 10/05/19 | 80 mg | | Right | | INTRAPROCEDURE CONTINUOUS PRN, | | 13 8:55 | | | Breast | | Starting Sun10/04/12 at 0855, | | AM PDT | | | | | Until Sun10/04/12 at 1122 | | | | | | + +---------+ +-------+---+--------+ +---+---+ | | | +---+---+ + +-------+ + +---+---+ | HYDROcodone-acetaminophen (aka | Given | 10/06/19 | 1 tablet | | | | NORCO) 5-325 mg tablet 1 Tab | | 13 1:53 | | | | | tablet, oral, EVERY 6 HOURS | | AM PDT | | | | | NEEDED, Starting Sun10/04/12 at | | | | | | | 1853, Until 10/05/12 at 1458, | | | | | | | moderate pain | | | | | | + +-------+ + +---+---+ +-------+ + +---+---+ | Given | 10/05/19 | 1 tablet | | | | | 13 7:24 | | | | | | PM PDT | | | | +-------+ + +---+---+ +---+---+ | | | +---+---+ + +---------+ + + +---+ | lactated ringers IV 75 mL/hr, | New Bag | 10/05/19 | 10 mL/hr | 10 mL/hr | | | intravenous, PROCEDURE | | 13 6:39 | | | | | CONTINUOUS, Starting 10/04/12 | | AM PDT | | | | | at 0615, Until Sun10/04/12 at | | | | | | | 1419 | | | | | | + +---------+ + + +---+ +---+---+ | | | +---+---+ + +-------+ + +---+---+ | senna-docusate (aka SENOKOT S) | Given | 10/05/19 | 1 tablet | | | | 8.6-50 mg 1 Tab 1 tablet, oral, | | 13 10:23 | | | | | TWICE DAILY, First dose on Sun | | PM PDT | | | | | 10/04/12 at 2100, Until | | | | | | | Discontinued | | | | | | + +-------+ + +---+---+ +---+---+ | | | +---+---+ documented in this encounter
--- OUTSIDE RECORDS SUMMARY | ~2020-05-04 | XMS | Encounter Summary ---
Demographics + + + | Address | [address] | | | [place] [address] | + + + | Home Phone [...] + + + | Author | [facility] | + + + | Organization | [facility] | + + + | Address | Unknown | + + + | Phone | Unavailable | + + + Support + + + + + | Name | Relationship | Address | Phone | + + + + + | Gene Gee | ECON | [address] | | | | | [place], | | | | | [place] [address] | | + + + + + Care Team Providers + +------+ + | Care Screw Machine Operator Name | Role | Phone | + +------+ + | Alec Hill MD | PCP | | + +------+ + Encounter Details +--------+ + + + + | Date | Type | Department | Care Team | Description | +--------+ + + + + | 07/25/ | Ancillary | Registration [address] | Stevan Velazquez, | | | 2007 | Registratio | [address] | [address] | | | | n | Driss Mailcode: [id number] | [place], [place] | | | | | [place], [place] | [address] | | | | | [address] | [phone] | | | | | [phone] | | | +--------+ + + + [...]
--- OUTSIDE RECORDS SUMMARY | ~2020-05-04 | XMS | Encounter Summary ---
Demographics + + + | Address | [address] | | | [place] [address] | + + + | Home Phone | | + + + | Preferred Language | Unknown | + + + | Marital Status | | + + + | Orthodoxy Affiliation | CHR | + + + | Race | White | + + + | Ethnic Group | Not or | + + + Author + + + | Author | [facility] | + + + | Organization | [facility] | + + + | Address | Unknown | + + + | Phone | Unavailable | + + + Support + + + + + | Name | Relationship | Address | Phone | + + + + + | Gene Gee | ECON | [address] | | | | | [place], | | | | | [place] [address] | | + + + + + Care Team Providers + +------+ + | Care Living Skills Advisor Name | Role | Phone | + +------+ + | Antony Ribera MD | PCP | | + +------+ + Encounter Details +--------+ + + + + | Date | Type | Department | Care Team | Description | +--------+ + + + + | 05/25/ | Documentati | [facility] | Alea Noriega MD | | | 2007 | on | [place] [address] [place] [address] | | | | | | Meera Mailcode: [id number] | | | | | | [facility] | | | | | | and Healing, | | | | | | Building , | | | | | | Floor [place], [place] | | | | | | [address] | | | | | | [phone] | | | +--------+ + + + [...] this encounter Miscellaneous Notes Telephone Encounter - Lul Jorden - 12/25/2011 12:28 PM PDTThis encounter has been admin istratively closed with the authorization of the [facility] Committee. elephone Encounter - Virginie Johns - 05/25/2008 2:54 PM PSTAdriana Flynn calling and left a message on the to give Dr. Noriega an update. Patient has had another episode with her abdominal stress. Patient would like a call back at [phone] Pain Scale: 0 Recent Surgery or Procedure: no Pharmacy: Pharmacy Preferences: [facility] [address] [place] [address] [facility] [address] [place] [address] [place] [address] Postal [facility] [address] [place] [address] [facility] [address] [place] [address] documented in this encoun ter Plan of Treatment Not on filedocumented as of this encounter Visit Diagnoses Not on filedocumented in this encounter"
--- OUTSIDE RECORDS SUMMARY | ~2020-05-04 | XMS | Encounter Summary ---
Demographics + + + | Address | [address] | | | [place] [address] | + + + | Home Phone [...] + | Gene Gee | ECON | [address] | | | | | [place], | | | | | [place] [address] | | + + + + + Care Team Providers + +------+ + | Care Biochemistry Technologist Name | Role | Phone | + +------+ + | Antony Ribera MD | PCP | | + +------+ + Encounter Details +--------+ + + + + | Date | Type | Department | Care Team | Description | +--------+ + + + + | 04/18/ | [place] | John Rudolph | Tapan Horowitz MD | RE: April 28 | | 2010 | Encounter | [facility] | [address] | appointment | | | | [facility] | [address] [place], | | | | | [address] | [place] [address] | | | | | [address] | [phone] | | | | | Physician's | | | | | | [place], 1st floor | | | | | | [place], [place] | | | | | | [address] | | | | | | [phone] | | | +--------+ + + + [...] | + + + + + | [facility] | [address] | [place] [address] | | | PATHOLOGY | [address] [...] + + + | [facility] | [address] | [place] [address] | | | PATHOLOGY | [address] [...] | + + + + + | [facility] | [address] | [place] [address] | | | PATHOLOGY | [address] [...] | | | DEPARTMENT | | | [facility] | | | OF | | | [...] + + + | [facility] | [address] | [place] [address] | | | PATHOLOGY | [address] | | | + + + + + documented in this encounter Visit Diagnoses + + | Diagnosis | + + | Osteopenia - Primary Disorder of bone and cartilage, unspecified | + + documented in this encounter"
--- OUTSIDE RECORDS SUMMARY | ~2020-05-04 | XMS | Encounter Summary ---
Demographics + + + | Address | [address] | | | [place] [address] | + + + | Home Phone [...] + | Gene Gee | ECON | [address] | | | | | [place], | | | | | [place] [address] | | + + + + + Care Team Providers + +------+ + | Care Sanitation Manager Name | Role | Phone | + +------+ + | Antony Ribera MD | PCP | | + +------+ + Encounter Details +--------+ + + + + | Date | Type | Department | Care Team | Description | +--------+ + + + + | 01/08/ | Documentati | [facility] | [place] | | | 2012 | on | Center at [facility] [address] | MD [address] | | | | | [address] [facility] | [place], | | | | | for Health and | [place] [address] | | | | | [facility], [address] | [phone] | | | | | [place], [place] | | | | | | [address] | | | | | | [phone] | | | +--------+ + + + [...] this encounter Miscellaneous Notes Telephone Encounter - Chandler Fernando - 01/08/2013 9:30 AM PDTFollow up phone call to danny rodriguez post GI procedure from 01/07/2013. No answer. I have left a voice message ( home ) for patient. Patient instructed to contact our office at [phone] if they have any questions or conc erns. NO procedure report available as of today for this GI procedure of 01/07/2013. [place] [id number] documented in this encounte r Plan of Treatment Not on filedocumented as of this encounter Visit Diagnoses Not on filedocumented in this encounter"
--- OUTSIDE RECORDS SUMMARY | ~2020-05-04 | XMS | Encounter Summary ---
Demographics + + + | Address | [address] | | | [place] [address] | + + + | Home Phone [...] + | Gene Gee | ECON | [address] | | | | | [place], | | | | | [place] [address] | | + + + + + Care Team Providers + +------+ + | Care Senior Report Developer Name | Role | Phone | [...] | | | | | | | [address] | | | | | | | [address] | | | | | | | [place], [place] | | | | | | | [address] | | | | | | | Phone: | | | | | | | [phone] | | | | | | | Fax: | | | | | | | [phone] | + +--------+ + + + + Encounter Details +--------+---------+ + + + | Date | Type | Department | Care Team | Description | +--------+---------+ + + + | 10/29/ | Office | Surgical Oncology | [facility], | Malignant neoplasm | | 2018 | Visit | at [facility] [address] | MD [address] | of right female | | | | [facility] | [place], [place] | breast, unspecified | | | | [facility], | [address] | estrogen receptor | | | | [address] | [phone] | status, unspecified | | | | [place], [place] | | site of breast (HCC) | | | | [address] | | (Primary Dx); | | | | [phone] | | Encounter for | | | | | | screening mammogram | | | | | | for malignant | | | | | | neoplasm of breast | +--------+---------+ + + + Social History [...] + + + | Blood Pressure | 129/72 | 10/29/2017 12:42 PM | | | | | PDT | | + + + + + | Pulse | 67 | 10/29/2017 12:42 PM | | | | | PDT | | + + + + + | Temperature | 36.5 C (97.7 F) | 10/29/2017 12:42 PM | | | | | PDT | | + + + + + | Respiratory Rate | 16 | 10/29/2017 12:42 PM | | | | | PDT | | + + + + + | Oxygen Saturation | - | - | | + + + + + | Inhaled Oxygen | - | - | | | Concentration | | | | + + + + + | Weight | 68.9 kg (151 lb 14.4 | 10/29/2017 12:42 PM | | | | oz) | PDT | | + + + + + | Height | - | - | | + + + + + | Body Mass Index | 25.31 | 10/24/2017 12:39 PM | | | | | PDT | | + + + + + documented in this encounter Progress Notes [facility] MD - 10/29/2017 1:10 PM Aniket is here for follow up of her right breas t cancer treated with mastectomy, axillary dissection, chemotherapy. She had a rough winter. In July, she contracted the flu and developed new onset A-fib. S he did require cardioversion but reports she has been asymptomatic and in sinus rhythm since . She was also treated for congestive heart failure and RSV while admitted. Currently she fe sweetie locke. She was seen by a ticker maintainer on 10/24 for breathing therapy management. BP 129/72 | Pulse 67 | Temp (Src) 36.5 C (97.7 F) (Oral) | RR 16 | Wt 68.9 kg (151 lb 1 4.4 oz) | BMI 25.31 kg/(m^2) Gen: WD/WN in NAD. Not jaundiced. [...] patient currently has no evidence of disease. Plan: RTC in 1 year for her last left mammogram. I, Jane Brown, am functioning as a scribe for Dr. [facility]ís Heart MD. Five stars. I have reviewed and verified the above scribed note of my visit with this patient as record ed by Jane Brown. [facility] MD molder helper Division of Surgical Oncology [id number] [place], [place] [address] documented in this en counter Plan of Treatment Not on filedocumented as of this encounter Results MA DIGITAL MAMMO CRISTAL SCREEN LEFT WITH CAD (12/16/2018 10:10 AM PDT) + + | Specimen | + + | | + + + + + | Narrative | Performed At | + + + | HISTORY:73 | [facility] | | y.o. presents for routine screening mammogram.No relevant hormone | RADIOLOGY | | history has been documented for this patient. Medical history includes | | | breast cancer. Surgical history includes mastectomy, hysterectomy, | | | and oophorectomy. FAMILY HISTORY:Family medical history includes | | | breast cancer in maternal cousin. COMPARISON:Compared to: | | | 10/29/2017 [facility] DIGITAL MAMMO CRISTAL SCREEN LEFT WITH CAD and 10/23/2016 | | | [facility] CRISTAL DIAGNOSTIC LEFT W/CAD FINDINGS: The breast has scattered areas | | | of fibroglandular density. Stable changes of prior reduction of the | | | left breast. No suspicious calcifications, masses, or architectural | | | distortion present. Status post right mastectomy. No change when | | | compared to prior studies. ASSESSMENT: Left: 2 - BenignOverall: 2 - | | | Benign RECOMMENDATION: Screening mammogram in 1 year is recommended | | | for the left breast. I have personally reviewed the images and, if | | | necessary, edited the report. I agree with the report as now | | | presented. Digital mammographic images were obtained on a dedicated | | | [employer] System and interpreted with R2 CAD technology. 3D breast | | | tomosynthesis was performed as part of this exam. | | | | | |No change when compared to prior studies. | | | | | |ASSESSMENT: | | | | | |Left: 2 - Benign | | |Overall: 2 - Benign | | | | | |RECOMMENDATION: | | | | | |Screening mammogram in 1 year is recommended for the left breast. | | | | | | | | | | | | | | |I have personally reviewed the images and, if necessary, edited the | | |report. I agree with the report as now presented. Digital mammographic | | |images were obtained on a dedicated [employer] System and interpreted with R2 | | |CAD technology. 3D breast tomosynthesis was performed as part of this | | |exam. | | + + + + +---------+ + + | Performing | Address | City/State/Zipcode | Phone Number | | Organization | | | | + +---------+ + + | [facility] | | | | + +---------+ + + documented in this encounter Visit Diagnoses + + | Diagnosis | + + | Malignant neoplasm of right female breast, unspecified estrogen receptor status, | | unspecified site of breast (HCC) - Primary | + + | Encounter for screening mammogram for malignant neoplasm of breast Other screening | | mammogram | + + documented in this encounter"
--- OUTSIDE RECORDS SUMMARY | ~2020-05-04 | XMS | Encounter Summary ---
Demographics + + + | Address | [address] | | | [place] [address] | + + + | Home Phone [...] + + + | Author | [facility] | + + + | Organization | [facility] | + + + | Address | Unknown | + + + | Phone | Unavailable | + + + Support + + + + + | Name | Relationship | Address | Phone | + + + + + | Gene Gee | ECON | [address] | | | | | [place], | | | | | [place] [address] | | + + + + + Care Team Providers + +------+ + | Care Barometers Calibrator Name | Role | Phone | + +------+ + | Antony Ribera MD | PCP | | + +------+ + Reason for Visit + + + | Reason | Comments | + + + | Pre-op evaluation | | + + + Encounter Details +--------+ + + + + | Date | Type | Department | Care Team | Description | +--------+ + + + + | 10/03/ | Abstract | Preoperative | Laura Granda, | Pre-op evaluation | | 2012 | | Medicine Clinic at | | | | | | [facility] 4th Floor [address] | | | | | | Mailcode: [facility] | | | | | | [facility] | | | | | | and [place], | | | | | | [address]th Floor | | | | | | [place], [place] | | | | | | [address] | | | | | | [phone] | | | +--------+ + + + [...] documented as of this encounter Progress Notes Susanne Webber - 10/03/2012 1:12 PM PDTOR therapy techPepper ,(name) called the Pre Operative edicine Clinic on 10/03/12 (date) at 106pm(time) and requested delivery of the following info rmation to this patient: Surgery arrival date/ time:10/04/12 530am (date/time) Location [address] [place] [address] ([facility] e to arrive AM of surgery IE [address] [place] [address], etc) Information delivered to patient as requested by: Claudia will give message to Thais who w ill be seeing patient, Thais at lunch time of call (name of [facility] staff) documented in this encounter Plan of Treatment Not on filedocumented as of this encounter Visit Diagnoses Not on filedocumented in this encounter"
--- OUTSIDE RECORDS SUMMARY | ~2020-05-04 | XMS | Encounter Summary ---
Demographics + + + | Address | [address] | | | [place] [address] | + + + | Home Phone [...] + | Gene Gee | ECON | [address] | | | | | [place], | | | | | [place] [address] | | + + + + + Care Team Providers + +------+ + | Care Vb Net Programmer Name | Role | Phone | + +------+ + | Antony Ribera MD | PCP | | + +------+ + Reason for Visit + +--------+ + | Reason | Onset | Comments | | | Date | | + +--------+ + | Infusion | 05/18/ | | | | 2010 | | + +--------+ + PROC - Dept/Practice Procedure (Routine) +--------+--------+ + + + + | Status | Reason | Specialty | Diagnoses / | Referred By | Referred To | | | | | Procedures | Contact | Contact | +--------+--------+ + + + + | Closed | | Rheumatology | Diagnoses | Belkis Horowitz | | | | | Disorder of | [facility] [place] | Infusion [facility] | | | | | bone and | [address] | [address] | | | | | cartilage, | [place] | [address] | | | | | unspecified | Rd | Physician's | | | | | Procedures | [place], [place] | Pavilion, | | | | | CONSULT TO | [address] | 4th Floor | | | | | RHEUMATOLOGY | Phone: | [place], [place] | | | | | INFUSION | [phone] | [address] | | | | | UNIT [place] [facility] | Fax: | Phone: | | | | | | [phone] | [phone] | | | | | [facility] | | Fax: | | | | | [place] [facility] [place] | | [phone] | | | | | THR/PRPH/DX | | | | | | | IV INF,IN | | | +--------+--------+ + + + + Encounter Details +--------+ + + + + | Date | Type | Department | Care Team | Description | +--------+ + + + + | 11/03/ | Clinical | Rheumatology at | | Infusion | | 2010 | Support | [facility] [address] | | | | | Staff | [address] | | | | | | Physician's | | | | | | [address], [address] | | | | | | [place], [place] | | | | | | [address] | | | | | | [phone] | | | +--------+ + + + [...] documented as of this encounter Progress Notes Ita Coulter RN - 05/18/2011 4:22 PM PDTFormatting of this note might be different fro m the original. INFUSION NURSING NOTE Physician: Carlos Manuel Subjective: Denies any pain today Pre-Infusion Pain Score: Patient reports a pain level of 0 today. Weight: Wt Readings from Last 1 Encounters: 05/18/11 64.275 kg (141 lb 11.2 oz) Heart / Lung Sounds: 70 Labs: None drawn docum ented in this encounter Plan of Treatment Not on filedocumented as of this encounter Visit Diagnoses + + | Diagnosis | + + | Osteoporosis, unspecified - Primary | + + documented in this encounter Administered Medications + +---------+ +------+--------+------+ | Medication Order | MAR | Action | Dose | Rate | Site | | | Action | Date | | | | + +---------+ +------+--------+------+ | zoledronic acid (aka RECLAST) | New Bag | 05/18/20 | 5 mg | mL/hr | | | injection 5 mg 5 mg, | | 11 2:55 | | | | | intravenous, ONCE, 1 dose, [place] | | PM PDT | | | | | 05/18/11 at 1430 | | | | | | + +---------+ +------+--------+------+ +---+---+ | | | +---+---+ documented in this encounter"
--- OUTSIDE RECORDS SUMMARY | ~2020-05-04 | XMS | Encounter Summary ---
Demographics + + + | Address | [address] | | | [place] [address] | + + + | Home Phone [...] + | Gene Gee | ECON | [address] | | | | | [place], | | | | | [place] [address] | | + + + + + Care Team Providers + +------+ + | Care Mammographer Name | Role | Phone | + [...] | +--------+ + + + + | 10/04/ | Anesthesia | 6A Intra Op [id number] | Myah Dawson, | | | 2012 | Event | [facility] | [address] | | | | | [facility] | [facility] | | | | | Hospital Admitting | [place], [place] | | | | | Desk Located on the | [address] | | | | | 9th floor | [phone] | | | | | [place], [place] | | | | | | [address] | Carisa Llanos | | | | | | KELIN Garcia | | +--------+ + + + + Anesthesia Record + + + + + | Procedure Name | Responsible | Anesthesia Start | Anesthesia Stop Time | | | Anesthesiologist | Time | | + + + + + | RIGHT BREAST TISSUE | Myah Dawson MD | 10/04/12 0732 | 10/04/12 1125 | | CLOAK ROOM ATTENDANT EXCHANGE TO | | | | | SILICONE IMPLANT | | | | | WITH CAPSULOTOMY, | | | | | CAPSULECTOMY, VS | | | | | RECONSTRUCTIONREVISI | | | | | ON AND LEFT BREAST | | | | | LIFT FOR SYMMETRY. | | | | | Specimens x 4 | | | | | (Bilateral Chest) | | | | + + + + + +----+---+ + + | Da | T | Event | Comment | | te | i | | | | | m | | | | | e | | | +----+---+ + + | 03 | 0 | Eq Check | Anesthesia machine checked Equipment verified | | /2 | 7 | | | | 2/ | 1 | | | | 20 | 3 | | | | 13 | | | | +----+---+ + + | | 0 | Pt. Check | Prior to anesthesia start, pt. Identified, examined, chart | | | 7 | | reviewed, PAROlga held, anesthetic plan made or approved by | | | 1 | | attending anesthesiologist. NPO status confirmed as appropriate | | | 3 | | for procedure Preoperative evaluation: unchanged | +----+---+ + + | | 0 | Quick Note | Surgeon needs paper work that was left in pt.'s car. | | | 7 | | walking to car. | | | 2 | | | | | 0 | | | +----+---+ + + | | 0 | An Start | | | | 7 | | | | | 3 | | | | | 2 | | | +----+---+ + + | | 0 | An Start | | | | 7 | Data | | | | 3 | | | | | 5 | | | +----+---+ + + | | 0 | Vitals | Monitors applied Vital signs checked Patient ready for anesthesia | | | 7 | Checked | | | | 3 | | | | | 7 | | | +----+---+ + + | | 0 | Std. Airway | | | | 7 | Mgt. | | | | 4 | | | | | 5 | | | +----+---+ + + | | 0 | Ready | | | | 7 | | | | | 4 | | | | | 7 | | | +----+---+ + + | | 0 | Abx | | | | 7 | Administere | | | | 5 | d | | | | 4 | | | +----+---+ + + | | 0 | Incision | | | | 8 | | | | | 1 | | | | | 0 | | | +----+---+ + + | | 0 | Quick Note | Kelsi Antony in for Llanos [id number] | | | 8 | | | | | 2 | | | | | 5 | | | +----+---+ + + | | 1 | Surgery end | | | | 1 | | | | | 0 | | | | | 8 | | | +----+---+ + + | | 1 | An Extubate | Neuromuscular function Intact. Pharynx suctioned. Patient obeys | | | 1 | | commands. Adequate pulmonary mechanics. | | | 1 | | | | | 2 | | | +----+---+ + + | | 1 | an stop | | | | 1 | data | | | | 1 | | | | | 3 | | | +----+---+ + + | | 1 | Anesthesia | | | | 1 | End | | | | 2 | | | | | 5 | | | +----+---+ + + +------+ | Meds | +------+ + + + | Name | Total | + + + | midazolam | 2 mg | + + + | lidocaine 2% | 60 mg | + + + | propofol | 130 mg | + + + | rocuronium | 40 mg | + + + | dexamethasone | 6 mg | + + + | ceFAZolin | 2,000 mg | + + + | PHENYLephrine | 450 mcg | + + + | fentaNYL | 250 mcg | + + + | ePHEDrine | 30 mg | + + + | metoclopramide | 10 mg | + + + | ondansetron | 4 mg | + + + | HYDROmorphone | 1 mg | + + + | LR | 1,800 mL | + + + + + | Name | + + | Insp Sevo | + + | Et Sevo | + + | O2 Flow Rate (Total Liters) | + + | Air Flow rate (L/min) | + + + + | No blood administrations on file. | + + +--------+ + + + | Type | Details | Placement | Removal | +--------+ + + + | RETIRE | 06/26/12; Breast; No; Right:; | 06/26/12 0000 by | 05/03/17 1622 by | | D - | 05/03/17 (Automatic cleanup per | Kelsi Aparicio RN | Discontinued After | | Incisi | RA 3006--contact admin for | | Discharge | | on | questions.); 1622 (Automatic | | | | | cleanup per RA 3006--contact | | | | | admin for questions.) | | | +--------+ + + + | RETIRE | 06/26/12; 05/03/17 (Automatic | 06/26/12 0000 by | 05/03/17 1622 by | | D - | cleanup per RA 3006--contact | Kelsi Aparicio RN | Discontinued After | | Drains | admin for questions.); 1622 | | Discharge | | | (Automatic cleanup per RA | | | | (wound | 3006--contact admin for | | | | s/surg | questions.); No; Right breast; 19 | | | | ical) | Kyle; Alexander | | | +--------+ + + + | RETIRE | 10/04/12; 0640; 10/05/12; No; 20; | 10/04/12 0640 by | 10/05/12 0000 by | | D - | Left; Hand; None; No; Positive | Britney Carpenter | Mallika Bolton RN | | Periph | | | | | eral | | | | | Line | | | | +--------+ + + + | RETIRE | 10/04/12; 0814; No; Right:; | 10/04/12 0814 by | 05/03/17 1622 by | | D - | breast; 05/03/17 (Automatic | Safia Macedo RN | Discontinued After | | Incisi | cleanup per RA 3006--contact | | Discharge | | on | admin for questions.); 1622 | | | | | (Automatic cleanup per RA | | | | | 3006--contact admin for | | | | | questions.) | | | +--------+ + + + | RETIRE | 10/04/12; 0930; No; Left:; | 10/04/12 0930 by | 05/03/17 1622 by | | D - | breast; 05/03/17 (Automatic | Safia Macedo RN | Discontinued After | | Incisi | cleanup per RA 3006--contact | | Discharge | | on | admin for questions.); 1622 | | | | | (Automatic cleanup per RA | | | | | 3006--contact admin for | | | | | questions.) | | | +--------+ + + + documented in this encounter Social History + +-------+ +--------+------+ | Tobacco [...] + + documented as of this encounter OR Notes Anesthesia Postprocedure Evaluation - Carisa Llanos CRNA - 10/04/2012 11:26 AM PD T Adriana Flynn [id number] Allergies Allergen Reactions Sulfa (Sulfonamide Antibiotics) Swelling-Facial [...] Triamterene-Hydrochlorothiazid BREAST LUMPS Tape Adherent Rash Past Surgical History Procedure Date Ectopic age [...] [facility] Heart ablation 12/16/2004,09/21/2005 Dr. Fuentes, [facility] Mastectomy Biopsy / excision / dissection axillary node Evaluation Patient personally seen and evaluated for recovery from anesthesia care, ROS including card , resp, Neuro, and GI w/o evidence of adverse effects and VS including temperature and hydra tion status are normal Complications nesthesia P reprocedure Evaluation - Carisa Llanos CRNA - 10/04/2012 7:22 AM PDT Adriana Flynn [id number] Allergies Allergen Reactions Sulfa (Sulfonamide Antibiotics) Swelling-Facial [...] distress. 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 Fuentes, [facility] Mastectomy Biopsy / excision / dissection axillary node Current Medication List Name Sig Last Dose ATENOLOL 50 MG TABLET Take 25 mg by mouth two times daily. 1/2 tablet twice daily 10/04/2012 BUDESONIDE 180 MCG/ACTUATION BREATH ACTIVATED POWDER INHALER Inhale 3 Puffs two times daily . 10/04/2012 CITRACAL + D 315 MG-200 UNIT TABLET 2 tabs in evening and liquid calcium citrate in AM 09/14 CEPHALEXIN 500 MG CAPSULE Take 1 Cap by mouth three times daily for 5 days. Not Taking DICLOFENAC 1 % TOPICAL GEL Apply to affected area three times daily. Within last 7 days DOFETILIDE 500 MCG CAPSULE Take 1 Cap by mouth two times daily. 10/04/2012 EZETIMIBE 10 MG TABLET Take 10 mg by mouth once daily. 10/03/2012 FLUTICASONE 50 MCG/ACTUATION NASAL SPRAY, SUSP Instill 1 [place] into each nostril two times daily. 10/04/2012 GLUCOSAMINE SULFATE DIPOTASSIUM CHLORIDE 1,000 MG TABLET one daily 10/03/2012 HYDROCODONE-ACETAMINOPHEN 5 MG-500 MG TABLET Take 1 Tab by mouth every four hours as needed (for pain.). Not to exceed 6 tablets per any 24 hour period. (Not to exceed 3250 mg of acet aminophen from all products per 24 hour period.) Not Taking LORAZEPAM 1 MG TABLET 0.5 Tabs Q HS PRN. Within last 7 days METHYLCELLULOSE (LAXATIVE) ORAL POWDER Take by mouth. Within last 7 days MULTIVITAMIN OR one daily 10/03/2012 POTASSIUM CHLORIDE ER 20 MEQ TABLET,EXTENDED RELEASE(PART/CRYST) Take 1 Tab by mouth once d aily. 10/03/2012 RABEPRAZOLE 20 MG TABLET,DELAYED RELEASE Take 20 mg by mouth every twelve hours. 10/04/2012 ANTIOXIDANT FORMULA CAPSULE take 1 capsule by oral route once daily with food 10/03/2012 VITAMIN D ORAL 2000 IU daily 10/03/2012 Lab Results Component Value Date RATE 57 06/25/2012 ATRIALRATE 57 06/25/2012 SC 150 06/25/2012 QRS 82 06/25/2012 QT 484 06/25/2012 QTC 471 06/25/2012 PAXIS 72 06/25/2012 RAXIS 68 06/25/2012 TAXIS 33 06/25/2012 EKGDX Value: Sinus bradycardia Prolonged QT Abnormal ECG Confirmed by BERNARD GONZALEZ ([id number]) on 06/25/2012 10:21:45 PM 06/25/2012 Preoperative Adult Anesthesia Plan Last edited 10/04/12 0722 by Carisa Llanos CRNA ROS Pulmonary: History of pulm embolus and LLE DVT post chemorx 2007. History of sjogrens syndrome that patient says caused one episode of asthma. She has been free of asthma sx since starting steroid maintenance inhaler. Very infreq use of albuterol Within Defined Limits except as noted below no cough no shortness of breath no wheezing Pt. Has asthma Classification: Frequency: very infrequent ER Visits: none Hospital Visits: none No dx of sleep apnea Cardiovascular: History of atrial tachycardia maintained on dofetilide for several years. Pt report recent a fibrillation associated with norovirus over with days of diarrhea, vomiting. No new medications given Stress TEST 02/2012 [facility] negative for ischemia Sees Dr Fuentes every 6 months Pt is able to ride exercise bike for 30 minute duration. She does daily stretching and weight lifting Within Defined Limits except as noted below Functional Capacity: Moderate - chest pressure and syncope no CAD no CHF valvular problems/murmurs MVP Other CV: OTHER CARDIAC SYMPTOMS dysrhythmias no pacemaker GI/Hepatic: H/o small bowel obstructions. Pt says they occurred after liver cyst surgery. History of multiple liver cyst with rupture Within Defined Limits except as noted below no GI Bleed GERD Control: Well controlled No liver disease no hepatitis OTHER GI : Within Defined Limits except as noted below Endo: History thyroid nodule, recent tsh Within Defined Limits except as noted below Neurological: Within Defined limits except as noted below no seizures no HX CORTICOSTEROID no psychiatric problem no dementia pain Current pain level: 0 MS: H/o fibromyalgia;sjogrens; TMJ, has locked (wears bite guard) Within Defined Limits except as noted below arthritis Type: Sjogren syndrome Heme/Onc: Within Defined Limits except as noted below Pt. has: no active bleeding no Bleeding diathesis / thrombotic bleeding Malignancy: cancer, Location: Breast, Metastasis: No Skin: Within Defined Limits except as noted below No open wounds or sores No hx MRSA/VRE/Active skin infection Physical Exam General: Patients general appearance: Healthy, Alert, No distress, Cooperative and Age appropriate Head & Neck/Airway: NC/AT; PERRL; EOMI; nl appearing ears and nose. Neck ROM: full TM Distance:> 6cm Dentition: dentition is normal Dental risk discussed with/pt : Yes Dentition Comments: TMJ Melo: No Mallampati: I Mouth Opening: > = 3 cm C-Spine: normal Neck Anatomy: Normal Jaw Protrusion: Limited, lower incisors can only be advanced to meet upper incisors Lung Exam: No respiratory distress. Normal breathing pattern. breath sounds normal Cardiac: No murmurs, gallops or rubs. Rhythm: regular Rate: normal Abdominal: General Findings: Deferred Musculoskeletal: Findings: tone normal Neuro/Psych: No focal neuro deficits; Alert and appropriate; nl affect. alert Findings: No tremor, Alert, oriented to person, place, time, Normal affect and Normal gait and station Integument: No open rashes or lesions noted. - lesion, rash and open wounds Color: pink Texture: Skin texture - normal Turgor: turgor normal Implants: None, Comments: DIFFICULT IV ACCESS, history of anterior airway, bougie used with last surgery. Anesthesia Plan Comments ASA ASA 3 NPO Status NPO Status: NPO by protocol Monitors/Lines to be used Standard Anesthetic Consideration PONV prophylaxis Induction intravenous induction Anesthetic Technique General; Post-Op Pain Plan IV analgesics; Blood Products Interpretive Services Informed Consent PARQ discussed with: patient, Procedures, Alternatives, Risks, and Questions discussed and Risk/benefit of anesthesia plan and blood product discussed Code status in OR Patients Code Status in OR: FULL 10/04/2012 7:22 AM documented in this encounter Miscellaneous Notes Ane airway standard - Carisa Llanos CRNA - 10/04/2012 8:15 AM PDTProcedure Reason for Intubation: For surgical procedure, Location Performed: OR , Patient was preoxyg enated Mask Ventilation Grade 1 - Ventilated by mask Rapid Sequence Induction: with cricoid and Modified Intubation Atraumatic laryngoscopy: Atraumatic Laryngoscopy, Laryngoscopic view: N/A, Fiberoptics used : Glidescope , Number of Attempts: 1, Positive for EtCO2: Yes, Breath sounds: Bilateral and equal ETT Ett Adult: Single-lumen cuffed ETT Size: 7 ETT secured with: adhesive tape Depth at Lip: 21 cm Airway leak: No LMA Narrative Attending physically present Attending: MYAH DAWSON By Dr. Dawson, pt. Previous record anterior airway used bougie an history of TMJ so gli descope used, Cricoid pressure, cords visualized, tube placed atraumatic. MC/ANE PreO p Note - Carisa Llanos CRNA - 10/04/2012 7:21 AM PDT ROS Pulmonary: History of pulm embolus and LLE DVT post chemorx 2007. History of sjogrens syndr ome that patient says caused one episode of asthma. She has been free of asthma sx since sta rting steroid maintenance inhaler. Very infreq use of albuterol Within Defined Limits except as noted below no cough no shortness of breath no wheezing Pt. Has asthma Classification : Frequency: very infrequent ER Visits: none Hospital Visits: none No dx of sleep apnea Cardiovascular: History of atrial tachycardia maintained on dofetilide for several years. Pt report recent a fibrillation associated with norovirus over with days of d iarrhea, vomiting. No new medications given Stress TEST 02/2012 [facility] negative for ischemia Sees Dr Fuentes every 6 months Pt is able to ride exercise bike for 30 minute duration. She does daily stretching and weig ht lifting Within Defined Limits except as noted below Functional Capacity: Moderate - chest pressure and syncope no CAD no CHF valvular problems/murmurs MVP Other CV: OTHER CARDIAC SYMPTOMS dysrhythmias no pacemaker GI/Hepatic: H/o small bowel obstructions. Pt says they occurred after liver cyst surgery. H istory of multiple liver cyst with rupture Within Defined Limits except as noted below no GI Bleed GERD Control: Well controlled No liver disease no hepatitis OTHER GI : Within Defined Limits except as noted below Endo: History thyroid nodule, recent tsh Within Defined Limits except as noted below Neurological: Within Defined limits except as noted below no seizures no HX CORTICOSTEROID no psychiatric problem no dementia pain Current pain level: 0 MS: H/o fibromyalgia;sjogrens; TMJ, has locked (wears bite guard) Within Defined Limits exc ept as noted below arthritis Type: Sjogren syndrome Heme/Onc: Within Defined Limits except as noted below Pt. has: no active bleeding no Bleedi ng diathesis / thrombotic bleeding Malignancy: cancer, Location: Breast, Metastasis: No Skin: Within Defined Limits except as noted below No open wounds or sores No hx MRSA/VRE/Ac tive skin infection Physical Exam General: Patients general appearance: Healthy, Alert, No distress, Cooperative and Age appr opriate Head & Neck/Airway: NC/AT; PERRL; EOMI; nl appearing ears and nose. Neck ROM: full TM Distance:> 6cm Dentition: dentition is normal Dental risk discussed with/pt : Yes Dentit ion Comments: TMJ Melo: No Mallampati: I Mouth Opening: > = 3 cm C-Spine: normal Neck Isabell paula: Normal Jaw Protrusion: Limited, lower incisors can only be advanced to meet upper incis ors Lung Exam: No respiratory distress. Normal breathing pattern. breath sounds normal Cardiac: No murmurs, gallops or rubs. Rhythm: regular Rate: normal Abdominal: General Findings: Deferred Musculoskeletal: Findings: tone normal Neuro/Psych: No focal neuro deficits; Alert and appropriate; nl affect. alert Findings: No tremor, Alert, oriented to person, place, time, Normal affect and Normal gait and station Integument: No open rashes or lesions noted. - lesion, rash and open wounds Color: pink Texture: Skin texture - normal Turgor: turgor normal Implants: None, Comments: DIFFICULT IV ACCESS, history of anterior airway, bougie used with last surgery. MC/KYLIE PreO p Note - Jerica Tariq FNP - 10/03/2012 1:50 PM PDT ROS Pulmonary: History of pulm embolus and LLE DVT post chemorx 2007. History of sjogrens syndr ome that patient says caused one episode of asthma. She has been free of asthma sx since sta rting steroid maintenance inhaler. Very infreq use of albuterol Within Defined Limits except as noted below no cough no shortness of breath no wheezing Pt. Has asthma Classification : Frequency: very infrequent ER Visits: none Hospital Visits: none No dx of sleep apnea Cardiovascular: History of atrial tachycardia maintained on dofetilide for several years. Pt report recent a fibrillation associated with norovirus over thanksgiving with days of d iarrhea, vomiting. No new medications given Stress TEST 02/2012 [facility] negative for ischemia Sees Dr Fuentes every 6 months Pt is able to ride exercise bike for 30 minute duration. She does daily stretching and weig ht lifting Within Defined Limits except as noted below Functional Capacity: Moderate - chest pressure and syncope no CAD no CHF valvular problems/murmurs MVP Other CV: OTHER CARDIAC SYMPTOMS dysrhythmias no pacemaker GI/Hepatic: H/o small bowel obstructions. Pt says they occurred after liver cyst surgery. H istory of multiple liver cyst with rupture Within Defined Limits except as noted below no GI Bleed GERD Control: Well controlled No liver disease no hepatitis OTHER GI : Within Defined Limits except as noted below Endo: History thyroid nodule, recent tsh Within Defined Limits except as noted below Neurological: Within Defined limits except as noted below no seizures no HX CORTICOSTEROID no psychiatric problem no dementia pain Current pain level: 0 MS: H/o fibromyalgia;sjogrens; TMJ, has locked (wears bite guard) Within Defined Limits exc ept as noted below arthritis Type: Sjogren syndrome Heme/Onc: Within Defined Limits except as noted below Pt. has: no active bleeding no Bleedi ng diathesis / thrombotic bleeding Malignancy: cancer, Location: Breast, Metastasis: No Skin: Within Defined Limits except as noted below No open wounds or sores No hx MRSA/VRE/Ac tive skin infection Physical Exam General: Patients general appearance: Healthy, Alert, No distress, Cooperative and Age appr opriate Head & Neck/Airway: NC/AT; PERRL; EOMI; nl appearing ears and nose. Neck ROM: full TM Distance:Normal Dentition: dentition is normal Dentition Comments: TMJ Melo: No Mallamp ati: I Mouth Opening: > = 3 cm C-Spine: normal Neck Anatomy: Normal Jaw Protrusion: Limited , lower incisors can only be advanced to meet upper incisors Lung Exam: No respiratory distress. Normal breathing pattern. breath sounds normal Cardiac: No murmurs, gallops or rubs. Rhythm: regular Rate: normal Abdominal: General Findings: Deferred Musculoskeletal: Findings: tone normal Neuro/Psych: No focal neuro deficits; Alert and appropriate; nl affect. alert Findings: No tremor, Alert, oriented to person, place, time, Normal affect and Normal gait and station Integument: No open rashes or lesions noted. - lesion, rash and open wounds Color: pink Texture: Skin texture - normal Turgor: turgor normal Implants: None, Comments: DIFFICULT IV ACCESS documented in is encounter Plan of Treatment Not on filedocumented as of this encounter Visit Diagnoses Not on filedocumented in this encounter Administered Medications + +--------+ + +------+------+ | Medication Order | MAR | Action | Dose | Rate | Site | | | Action | Date | | | | + +--------+ + +------+------+ | ceFAZolin (aka ANCEF) injection | Given | 10/05/19 | 2,000 mg | | | | intravenous, INTRAPROCEDURE | | 13 7:54 | | | | | PRN, Starting Sun10/04/12 at | | AM PDT | | | | | 0754, Until Sun10/04/12 at 1113 | | | | | | + +--------+ + +------+------+ +---+---+ | | | +---+---+ + +-------+ +------+---+---+ | dexamethasone (aka DECADRON) | Given | 10/05/19 | 6 mg | | | | injection intravenous, | | 13 8:01 | | | | | INTRAPROCEDURE PRN, Starting Fri | | AM PDT | | | | | 10/04/12 at 0801, Until Fri | | | | | | | 10/04/12 at 1113 | | | | | | + +-------+ +------+---+---+ +---+---+ | | | +---+---+ + +-------+ +------+---+---+ | ePHEDrine injection | Given | 10/05/19 | 5 mg | | | | intravenous, INTRAPROCEDURE PRN, | | 13 10:55 | | | | | Starting Sun10/04/12 at 0908, | | AM PDT | | | | | Until Sun10/04/12 at 1113 | | | | | | + +-------+ +------+---+---+ +-------+ +-------+---+---+ | Given | 10/05/19 | 10 mg | | | | | 13 10:49 | | | | | | AM PDT | | | | +-------+ +-------+---+---+ | Given | 10/05/19 | 5 mg | | | | | 13 9:25 | | | | | | AM PDT | | | | +-------+ +-------+---+---+ +---+---+ | | | +---+---+ + +-------+ +--------+---+---+ | fentaNYL citrate (PF) (aka | Given | 10/05/19 | 25 mcg | | | | SUBLIMAZE) injection | | 13 10:29 | | | | | INTRAPROCEDURE PRN, Starting Fri | | AM PDT | | | | | 10/04/12 at 0743, Until Fri | | | | | | | 10/04/12 at 1113, sedation | | | | | | + +-------+ +--------+---+---+ +-------+ +---------+---+---+ | Given | 10/05/19 | 25 mcg | | | | | 13 9:58 | | | | | | AM PDT | | | | +-------+ +---------+---+---+ | Given | 10/05/19 | 100 mcg | | | | | 13 8:56 | | | | | | AM PDT | | | | +-------+ +---------+---+---+ +---+---+ | | | +---+---+ + +-------+ +--------+---+---+ | HYDROmorphone (aka DILAUDID) | Given | 10/05/19 | 0.5 mg | | | | injection INTRAPROCEDURE PRN, | | 13 11:24 | | | | | Starting Sun10/04/12 at 1040, | | AM PDT | | | | | Until Sun10/04/12 at 1113, | | | | | | | sedation | | | | | | + +-------+ +--------+---+---+ +-------+ +--------+---+---+ | Given | 10/05/19 | 0.5 mg | | | | | 13 10:40 | | | | | | AM PDT | | | | +-------+ +--------+---+---+ +---+---+ | | | +---+---+ + + + +----+---+---+ | lactated ringers IV | given by | 10/05/19 | mL | | | | INTRAPROCEDURE CONTINUOUS PRN, | | 13 11:03 | | | | | Starting 10/04/12 at 0732, | anesthes | AM PDT | | | | | Until 10/04/12 at 1113 | iology | | | | | + + + +----+---+---+ + + +----+---+---+ | given by anesthesiology | 10/05/19 | mL | | | | | 13 8:28 | | | | | | AM PDT | | | | + + +----+---+---+ | New Bag | 10/05/19 | mL | | | | | 13 7:32 | | | | | | AM PDT | | | | + + +----+---+---+ +---+---+ | | | +---+---+ + +-------+ +-------+---+---+ | lidocaine (aka XYLOCAINE MPF) | Given | 10/05/19 | 60 mg | | | | 20 mg/mL (2 %) injection | | 13 7:43 | | | | | INTRAPROCEDURE PRN, Starting Fri | | AM PDT | | | | | 10/04/12 at 0743, Until Fri | | | | | | | 10/04/12 at 1113 | | | | | | + +-------+ +-------+---+---+ +---+---+ | | | +---+---+ + +-------+ +-------+---+---+ | metoclopramide HCl (aka REGLAN) | Given | 10/05/19 | 10 mg | | | | injection intravenous, | | 13 9:42 | | | | | INTRAPROCEDURE PRN, Starting Fri | | AM PDT | | | | | 10/04/12 at 0942, Until Fri | | | | | | | 10/04/12 at 1113, nausea/vomiting | | | | | | + +-------+ +-------+---+---+ +---+---+ | | | +---+---+ + +-------+ +------+---+---+ | midazolam (aka VERSED) | Given | 10/05/19 | 2 mg | | | | injection INTRAPROCEDURE PRN, | | 13 7:32 | | | | | Starting Fri 13 at 0732, | | AM PDT | | | | | Until Sun10/04/12 at 1113, | | | | | | | sedation | | | | | | + +-------+ +------+---+---+ +---+---+ | | | +---+---+ + +-------+ +------+---+---+ | ondansetron (aka ZOFRAN) | Given | 10/05/19 | 4 mg | | | | injection INTRAPROCEDURE PRN, | | 13 10:12 | | | | | Starting Sun10/04/12 at 1012, | | AM PDT | | | | | Until Sun10/04/12 at 1113 | | | | | | + +-------+ +------+---+---+ +---+---+ | | | +---+---+ + +-------+ +---------+---+---+ | phenylePHrine 100 mcg/mL | Given | 10/05/19 | 100 mcg | | | | injection (OR syringe) | | 13 10:55 | | | | | intravenous, INTRAPROCEDURE PRN, | | AM PDT | | | | | Starting Sun10/04/12 at 0750, | | | | | | | Until Sun10/04/12 at 1113 | | | | | | + +-------+ +---------+---+---+ +-------+ +---------+---+---+ | Given | 10/05/19 | 50 mcg | | | | | 13 9:25 | | | | | | AM PDT | | | | +-------+ +---------+---+---+ | Given | 10/05/19 | 100 mcg | | | | | 13 8:10 | | | | | | AM PDT | | | | +-------+ +---------+---+---+ +---+---+ | | | +---+---+ + +-------+ +--------+---+---+ | propofol INTRAPROCEDURE PRN, | Given | 10/05/19 | 130 mg | | | | Starting Sun10/04/12 at 0743, | | 13 7:43 | | | | | Until Sun10/04/12 at 1113 | | AM PDT | | | | + +-------+ +--------+---+---+ +---+---+ | | | +---+---+ + +-------+ +-------+---+---+ | rocuronium (aka ZEMURON) | Given | 10/05/19 | 40 mg | | | | injection INTRAPROCEDURE PRN, | | 13 7:43 | | | | | Starting Sun10/04/12 at 0743, | | AM PDT | | | | | Until Sun10/04/12 at 1113, | | | | | | | Neuromuscular block | | | | | | + +-------+ +-------+---+---+ +---+---+ | | | +---+---+ documented in this encounter
--- OUTSIDE RECORDS SUMMARY | ~2020-05-04 | XMS | Encounter Summary ---
Demographics + + + | Address | [address] | | | [place] [address] | + + + | Home Phone [...] + | Gene Gee | ECON | [address] | | | | | [place], | | | | | [place] [address] | | + + + + + Care Team Providers + +------+ + | Care Credit Balance Specialist Name | Role | Phone | + +------+ + | Antony Ribera MD | PCP | | + +------+ + Reason for Visit + + + | Reason | Comments | + + + | Device Check | | + + + Office Visit - E/M Services (Routine) +--------+--------+ + + + + | Status | Reason | Specialty | Diagnoses / | Referred By | Referred To | | | | | Procedures | Contact | Contact | +--------+--------+ + + + + | Closed | | Cardiology | | Sitz, | Robert Fuentes, | | | | | | Antony | [address] | | | | | | MD Saman | [address] [place] | | | | | | [place] | [address] | | | | | | INTERNAL | [place], [place] | | | | | | MEDICINE | [address] Phone: | | | | | | [address] | [phone] | | | | | | [place] | Fax: | | | | | | [address] | [phone] | | | | | | [place], | | | | | | | [place] [address] | | | | | | | Phone: | | | | | | | [phone] | | | | | | | Fax: | | | | | | | [phone] | | +--------+--------+ + + + + Encounter Details +--------+---------+ + + + | Date | Type | Department | Care Team | Description | +--------+---------+ + + + | 06/07/ | Office | Cardiology | Elijah Whalen, | Palpitations | | 2014 | Visit | Arrhythmia at [facility] | [address] | (Primary Dx) | | | | [address] | [address] | | | | | [facility] | [facility] [place] | | | | | and [place], | [address] | | | | | [facility] | [phone] | | | | | Floor [place], [place] | | | | | | [address] | | | | | | [phone] | | | +--------+---------+ + + + [...] + + + | Blood Pressure | 124/67 | 06/07/2015 12:59 PM | | | | | PST | | + + + + + | Pulse | 60 | 06/07/2015 12:59 PM | | | | | PST | | + + + + + | Temperature | 36.4 C (97.5 F) | 06/07/2015 12:59 PM | | | | | PST | | + + + + + | Respiratory Rate | - | - | | + + + + + | Oxygen Saturation | 100% | 06/07/2015 12:59 PM | | | | | PST | | + + + + + | Inhaled Oxygen | - | - | | | Concentration | | | | + + + + + | Weight | 67.2 kg (148 lb 1.6 | 06/07/2015 12:59 PM | | | | oz) | PST | | + + + + + | Height | 166.4 cm (5' 5.5") | 06/07/2015 12:59 PM | | | | | PST | | + + + + + | Body Mass Index | 24.27 | 06/07/2015 12:59 PM | | | | | PST | | + + + + + documented in this encounter Patient Instructions Patient Instructions Elijah Whalen MD - 06/07/2015 1:57 PM PST1 - Be sure to have a sp josue panel lab test and an ECG every 6 months 2 - See Krista instructions below 3 - If you feel a period of sustained arrhythmia, try to get a 12-lead ECG to document it t o make sure it is not atrial fibrillation. 4 - I'll see you once a year if all is going well. Elijah Whalen MD Cardiovascular Medicine - Electrophysiology [facility] at [facility] ----- MEDICATION GUIDE TIKOSYN (Nathan ko sin) (dofetilide) Capsules Read the Medication Guide before you start taking TIKOSYN and each time you get a refill. T his information does not take the place of talking with your doctor about your condition or treatment. What is the most important information I should know about TIKOSYN? TIKOSYN can cause serious side effects, including a type of abnormal heartbeat called Torsade de Pointes, which can lead to . To establish the right dose of TIKOSYN, treatment with TIKOSYN must be started in a hospita l where your heart rate and kidney function will be checked for the first 3 days of treatment . It is important that when you go home, you take the exact dose of TIKOSYN that your doctor prescribed for you. While you take TIKOSYN, always watch for signs of abnormal heartbeat. Call your doctor and go to the hospital right away if you: feel faint become dizzy, or have a fast heartbeat What is TIKOSYN? TIKOSYN is a prescription medicine that is used to treat an irregular heartbeat (atrial fib rillation or atrial flutter). It is not known if TIKOSYN is safe and effective in children under 18 years of age. Who should not take TIKOSYN? Do not take TIKOSYN if you: -have an irregular heartbeat called long QT syndrome -have kidney problems or are on kidney dialysis -take any of these medicines: -cimetidine (TAGAMET, TAGAMET HB)* -verapamil (CALAN, CALAN SR, COVERA-HS, ISOPTIN, ISOPTIN SR, VERELAN, VERELAN PM, TARKA)* -ketoconazole (NIZORAL, XOLEGEL, EXTINA)* -trimethoprim alone (PROLOPRIM, TRIMPEX)* or the combination of trimethoprim and sulfametho xazole (BACTRIM, SEPTRA SULFATRIM)* -prochlorperazine (COMPAZINE, COMPO)* -megestrol (MEGACE)* -hydrochlorothiazide alone or in combination with other medicines (such as ESIDRIX, EZIDE, HYDRODIURIL, HYDRO-PAR, MICROZIDE, or ORETIC)* Ask your doctor if you are not sure if any of your medicines are the kind listed above. -are allergic to dofetilide in TIKOSYN. See the end of this leaflet for a complete list of ingredients in TIKOSYN. What should I tell my doctor before taking TIKOSYN? Before taking TIKOSYN, tell your doctor about all of your medical conditions including if y ou: -have heart problems -have kidney or liver problems -are or plan to become . It is not known if TIKOSYN will harm your unborn baby. -are breast-feeding or plan to breast-feed. It is not known if TIKOSYN passes into your kristian ast milk. You and your doctor should decide if you will take TIKOSYN or breast-feed. You esvin uld not do both. Especially tell your doctor if you take medicines to treat: -heart problems -high blood pressure -depression or other mental problems -asthma -allergies, or hay fever -skin problems -infections Ask your doctor if you are not sure about the medicines you take. Tell your doctor about al l prescription and non-prescription medicines, vitamins, dietary supplements, and any natura l or herbal remedies. TIKOSYN and other medicines may affect each other, causing serious slime e effects. If you take TIKOSYN with certain medicines, you will be more likely to have a dif ferent type of abnormal heartbeat. See Who should not take TIKOSYN? Know the medicines you take. Keep a list of your medicines and show it to your doctor and pharmacist when you get a new medicine. How should I take TIKOSYN? -Take TIKOSYN exactly as your doctor tells you. -Do not change your TIKOSYN dose unless your doctor tells you to. -Your doctor will do tests before you start and while you take TIKOSYN. -Do not stop taking TIKOSYN until your doctor tells you to stop. If you miss a dose, just t roly the next dose at your regular time. Do not take 2 doses of TIKOSYN at the same time. -TIKOSYN can be taken with or without food. -If you take too much TIKOSYN, call your doctor or go to the nearest hospital emergency reji m right away. Take your TIKOSYN capsules with you to show to the doctor. What are the possible side effects of TIKOSYN? TIKOSYN can cause serious side effects, including a type of abnormal heartbeat called Torsade de Pointes, which can lead to . See What is the most important information I should know about TIKOSYN? The most common side effects of TIKOSYN include: -headache -chest pain -dizziness Call your doctor right away if you have signs of electrolyte imbalance: -severe diarrhea -unusual sweating -vomiting -not hungry (loss of appetite) -ncreased thirst (drinking more than normal) Tell your doctor if you have any side effects that bother you or do not go away. [If you ar e having severe diarrhea, vomiting or nausea so severe you cannot drink enough water, do not take the Tikoysn and let Dr. Whalen know how you are feeling.] These are not all the possible side effects of TIKOSYN. For more information, ask your doct or or pharmacist. Call your doctor for medical advice about side effects. You may report slime e effects to FDA at 4-173-GTX-3936. How should I store TIKOSYN? -Store TIKOSYN between 59 to 86F (15 to 30C). -Keep TIKOSYN away from moisture and humidity. -Keep TIKOSYN in a tightly closed container. -Keep TIKOSYN and all medicines out of the reach of children. General information about TIKOSYN Medicines are sometimes prescribed for purposes other than those listed in a Medication Guide. Do not use TIKOSYN for a condition for which it was not prescribed. Do not give TIKOSYN to other people, even if they have the same symptoms you have. It may harm them. Th is Medication Guide summarizes the most important information about TIKOSYN. If you would li ke more information, talk with your doctor. You can ask your doctor or pharmacist for inform ation about TIKOSYN that is written for health professionals. For more about TIKOSYN, go to www.[employer]elly[employer] or call 9-890-OWFRQUK ( ). What are the ingredients in TIKOSYN? Active ingredient: dofetilide Inactive ingredients: Capsule fill: microcrystalline cellulose, corn starch, colloidal silicon dioxide, and magnesium stearate Capsule shell: gelatin, titanium dioxide, and FD&C Yellow 6 Imprinting ink: iron oxide black, shellac, n-butyl alcohol, isopropyl alcohol, propylene glycol, and ammonium hydroxide documented in this encounter Progress Notes Elijah Whalen MD - 06/07/2015 2:14 PM PSTFormatting of this note might be different fro m the original. Arrhythmia Clinic Follow-up S: Ms. Flynn is here for follow-up with her . She is a former patient of Dr. Fuentes, transferring care to me. She has a long history of atrial tachycardia for which she underwen t two EPS's. It was thought to be left atrial and antiarrhymic agents were used. She has don e well with dofetilide and metoprolol with occassional break-through that is generally self- limited. One episode of possible atrial fibrillation at time of a severe diarrheal illness. I reviewed strips and it is borderline but looks most consistent with a slightly irregular a trial tachycardia. Recent Ziopatch was thought to show only PSVT and no atrial fibrillation. She has other medical problems including Sjogrens, fibromyalgia and intermittent small-emmanuel l obstructions. Review of chart shows a stress echo thought show pulmonary hypertension, but follow-up RHC was normal and subsequent stress echo did not remark on pulmonary hypertension No exertional chest discomforts, orthopnea, PND, lower extremity edema, light-headedness or syncope. Past Medical History Diagnosis Date Sjogrens syndrome (HCC) 1995 Fibromyalgia 1995 Mitral valve prolapse 1989 GERD (gastroesophageal reflux disease) 1995 Asthma 1999 TMJ (dislocation of temporomandibular joint) Fibrocystic disease of breast 1978 Diverticul disease small and large intestine, no perforati or abscess Skin cancer back Small bowel obstruction (HCC) 07/20,10/19,02/19 Atrial tachycardia 07/20 also episode in setting of [place] virus in 05/2012 which was thougth to be AF, but likel y just AT. Bursitis 2006 Plantar fascial fibromatosis 2007 plantar fascial tear Osteopenia 12/30/2007 Breast cancer (HCC) 02/2007 s/p chemo with taxotere/cytoxan Shingles Pulmonary embolus (HCC) 09/2008 Deep vein thrombosis of lower extremity ([facility]) Patient Active Problem List Diagnosis Date Noted Asthma 02/03/2014 Extrinsic asthma 10/27/2012 Overview Note: ICD10 History of DVT (deep vein thrombosis) 06/26/2012 Thyroid nodule 12/29/2008 Overview Note: May 2011 US: Scattered sub-cm nodules December 2008 US: 5 mm Right cyst Sjogren's Syndrome (HCC) 09/08/2008 Breast Cancer (HCC) 05/21/2008 Disorder of bone and cartilage 12/30/2007 Overview Note: Reclast 5228-8982 DXA 06/02/15: L -1.6 H -1.9 DXA 06/06/13; L -1.6 H -1.9 DXA 04/28/11: L -1.8 H -1.8 DXA 01/27/10: L -1.9 H -1.6 DXA 12/28/08: L -1.9 H -1.5 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 Propafenone Intestinal distress. Triamterene-Hydrochlorothiazid BREAST LUMPS Tape Adherent Rash Current Outpatient Prescriptions Medication Sig albuterol (PROAIR HFA) 90 mcg/actuation inhalation HFA aerosol inhaler Inhale 1-2 puffs every four hours as needed. Indications: ACUTE ASTHMA ATTACK budesonide (PULMICORT FLEXHALER) 180 mcg/actuation inhalation aerosol powdr breath acti vated Inhale 3 puffs two times daily. calcium citrate-vitamin D (CITRACAL + D) 315-200 mg-unit Oral Tablet 2 tabs in evening and liquid calcium citrate in AM carboxymethylcellulose 0.5 % ophthalmic dropperette 1 drop 3 Times Daily DOFETILIDE 500 mcg oral capsule Take 1 capsule by mouth two times daily. ezetimibe (ZETIA) 10 mg Oral Tablet Take 10 mg by mouth once daily. fluticasone (FLONASE) 50 mcg/actuation nasal spray,suspension Instill 1 spray into each nostril two times daily. fluticasone 220 mcg/actuation inhalation aerosol (aero) Inhale 2 puffs two times daily. Morning and evening. Rinse mouth after use. Indications: BRONCHIAL ASTHMA Glucosamine 1,000 mg Oral Tablet one daily lactobac [facility] #[id number] 300-250 million cell-mg oral capsule Take by mouth once daily. LORAZEPAM 1 mg Oral tablet 0.5 Tabs Q HS PRN. Methylcellulose, Laxative, (CITRUCEL) Oral Powder Take by mouth. metoprolol tartrate 50 mg oral tablet Take 75mg TID. May take an additional 25mg PRN p alpitations MULTIVITAMIN OR one daily potassium chloride SR 20 mEq oral tablet,ER [...] No current facility-administered medications for this visit. Comprehensive ROS as above, otherwise negative O: BP 124/67 | Pulse 60 | Temp 36.4 C (97.5 F) | Ht 1.664 m (5' 5.5") | Wt 67.178 kg (1 48 lb 1.6 oz) | SpO2 100% | BMI 24.26 kg/(m^2) HEENT - No dental infection. Sclera non-icteric. CV - RRR without murmur. Normal S1 and S2. CVP normal by neck veins. Vasculature - Normal carotid, femoral, radial and dorsalis pedis pulses bilaterally without carotid or femoral bruit. Lungs - Clear to auscultation bilaterally. Abdomen - Soft, non-tender without bruit. Extremities - Warm without edema. Skin - No petechia, nodules or splinters. Neuro - Speech and verbal comprehension normal with normal bilateral upper and lower extrem ity strength. Today's ECG shows SR with QTc 490-500 msec Assessment: Atrial tachycardia - No clear atrial fibrillation - Well controlled with dofetilide with QTc 490-500 Recommendations/Plans: 1 - We had a detailed discussion regarding management of atrial tachycardia. Will continue with dofetilide as long as it continues to work well and be effective. See patient instructi ons 2 - If she has prolonged episodes she will attempt to get 12-lead ECG to confirm they are n ot atrial fibrillation 3 - Follow-up with ECG and BMP every 6 mos (alternating with Dr. Ribera and me). Elijah Whalen MD Cardiovascular Medicine - Electrophysiology [facility] at [facility] I spent 50 minutes [id number] with the patient. Greater than 50% was spent counseling the patient regarding atrial tachycardia and dofetilide. documented in this en counter Plan of Treatment Not on filedocumented as of this encounter Procedures + +--------+ + + + | Procedure Name | Priori | Date/Time | Associated Diagnosis | Comments | | | ty | | | | + +--------+ + + + | 12 LEAD ECG | Routin | 06/07/2015 | Palpitations | Results for this | | | e | 1:04 PM | | procedure are in the | | | | PST | | results section. | + +--------+ + + + documented in this encounter Results 12 LEAD ECG (06/07/2015 1:04 PM PST) + + + + + + | Component | Value | Ref Range | Performed | Pathologist | | | | | At | Signature | + + + + + + | VENTRICULAR | 63 | bpm | [facility] | | | RATE | | | OF | | | | | | CARDIOLOGY | | + + + + + + | ATRIAL RATE | 63 | bpm | [facility] | | | | | | OF | | | | | | CARDIOLOGY | | + + + + + + | P-R | 164 | ms | [facility] | | | INTERVAL | | | OF | | | | | | CARDIOLOGY | | + + + + + + | P AXIS | 63 | deg | [facility] | | | | | | OF | | | | | | CARDIOLOGY | | + + + + + + | QRS | 94 | ms | [facility] | | | DURATION | | | OF | | | | | | CARDIOLOGY | | + + + + + + | QT | 488 | ms | [facility] | | | | | | OF | | | | | | CARDIOLOGY | | + + + + + + | QTC-CRISTIANO | 500 | ms | [facility] | | | | | | OF | | | | | | CARDIOLOGY | | + + + + + + | R AXIS | -30 | deg | [facility] | | | | | | OF | | | | | | CARDIOLOGY | | + + + + + + | T AXIS | 27 | deg | [facility] | | | | | | OF | | | | | | CARDIOLOGY | | + + + + + + | ECG | SINUS RHYTHMBORDERLINE | | [facility] | | | IMPRESSION | PROLONGED QT INTERVAL- | | OF | | | | BORDERLINE ECG | | CARDIOLOGY | | | | -Electronically signed | | | | | | by: ELAN NORMAN | | | | | | 06-07-2015 13:56:14 | | | | + + + [...] DEPT OF | [address] | [place], [place] | | | CARDIOLOGY | [address] | [address] | | + + + + + documented in this encounter Visit Diagnoses + + | Diagnosis | + + | Palpitations - Primary | + + documented in this encounter
--- OUTSIDE RECORDS SUMMARY | ~2020-05-04 | XMS | Encounter Summary ---
Demographics + + + | Address | [address] | | | [place] [address] | + + + | Home Phone [...] + | Gene Gee | ECON | [address] | | | | | [place], | | | | | [place] [address] | | + + + + + Care Team Providers + +------+ + | Care Transformer Coil Winder Name | Role | Phone | + [...] Closed | | Plastic | Diagnoses | Alla, | Alla, | | | | Surgery | Acquired | Hemangini J, | Hemangini J, | | | | | absence of | MD [address] | [address] | | | | | breast and | [address] | [address] | | | | | nipple | [address] | [address] | | | | | Fitting and | [place], | [facility] [place] | | | | | adjustment | [place] [address] | [address] Phone: | | | | | of breast | Phone: | [phone] | | | | | prosthesis | [phone] | Fax: | | | | | and implant | Fax: | [phone] | | | | | Deformity | [phone] | | | | | | and | | | | | | | disproportio | | | | | | | n of | | | | | | | reconstructe | | | | | | | d breast | | | | | | | Breast | | | | | | | replaced by | | | | | | | other means | | | | | | | Procedures | | | | | | | REQUEST TO | | | | | | | SURGERY | | | | | | | HEALTHCARE SCIENCE SPECIALIST | | | | | | | [place] REPLACE | | | | | | | TISSUE | | | | | | | MANAGER GLOBAL COMMUNICATIONS [place] | | | | | | | SURGERY OF | | | | | | | BREAST | | | | | | | [place] | | | | | | | REMOVAL OF | | | | | | | BREAST | | | | | | | CAPSULE [place] | | | | | | | REVISE | | | | | | | BREAST | | | | | | | RECONSTRUCTI | | | | | | | ON [place] | | | | | | | SUSPENSION | | | | | | | OF BREAST | | | +--------+--------+ + + + + Encounter Details +--------+ + + + + | Date | Type | Department | Care Team | Description | +--------+ + + + + | 09/09/ | Oral Surgeon | Plastic and | Errol Gold | Acquired absence of | | 2012 | | Reconstructive | MD [address] | breast and nipple | | | | Surgery at [facility] [address] | (Primary Dx); | | | | [facility] | [address] [facility] [place] | Carcinoma in situ of | | | | for Health and | [address] | breast; Deformity | | | | Healing, [address], | | and disproportion of | | | | 5th Floor | | reconstructed | | | | [place], [place] | | breast | | | | [address] | | | | | | [phone] | | | +--------+ + + + [...] | Acquired absence of breast and nipple - Primary | + + | Carcinoma in situ of breast | + + | Deformity and disproportion of reconstructed breast | + + documented in this encounter"
--- OUTSIDE RECORDS SUMMARY | ~2020-05-04 | XMS | Encounter Summary ---
Demographics + + + | Address | [address] | | | [place] [address] | + + + | Home Phone [...] + | Gene Gee | ECON | [address] | | | | | [place], | | | | | [place] [address] | | + + + + + Care Team Providers + +------+ + | Care Lift Manager Name | Role | Phone | + +------+ + | Antony Ribera MD | PCP | | + +------+ + Reason for Visit + +--------+ + | Reason | Onset | Comments | | | Date | | + +--------+ + | Pre-op evaluation | 04/16/ | | | | 2012 | | + +--------+ + Encounter Details +--------+ + + + + | Date | Type | Department | Care Team | Description | +--------+ + + + + | 04/16/ | Telephone | Cardiology | Gary Fuentes MD | Pre-op evaluation | | 2012 | | Arrhythmia at [facility] | [address] | | | | | [address] | [address] [place], | | | | | [facility] | [place] [address] | | | | | and Healing, | [phone] | | | | | [facility] | | | | | | Floor [place], [place] | | | | | | [address] | | | | | | [phone] | | | +--------+ + + + [...] this encounter Miscellaneous Notes Telephone Encounter - Katie Keita RN - 04/17/2013 10:13 AM PDTFrom: Gary Fuentes MD Se nt: Tuesday April 16, 2013 12:58 PM To: Katie Keita Message: No Per Dr. Fuentes - no contraindications to surgery. Most recent EKG, labs, stress test faxed to [facility]. elephone Encounter - Katie Keita RN - 04/16/2013 10:37 AM PDTReceived request for pre-op clearance for patient - scheduled for le ft thumb surgery on 05/01/13. "Are there any cardiac contraindications to proceeding with surgery?" (Patient last seen in Cardiology 12/26/12)Electronically signed by Katie Keita RN at 1 10:39 AM PDTdocumented in this encounter Plan of Treatment Not on filedocumented as of this encounter Visit Diagnoses Not on filedocumented in this encounter
--- OUTSIDE RECORDS SUMMARY | ~2020-05-04 | XMS | Encounter Summary ---
Demographics + + + | Address | [address] | | | [place] [address] | + + + | Home Phone [...] + | Gene Gee | ECON | [address] | | | | | [place], | | | | | [place] [address] | | + + + + + Care Team Providers + +------+ + | Care Superintendent Name | Role | Phone | + +------+ + | Antony Ribera MD | PCP | | + +------+ + Reason for Visit + +--------+ + | Reason | Onset | Comments | | | Date | | + +--------+ + | Refill Request | 04/06/ | metoprolol,potassium chloride | | | 2016 | | + +--------+ + Encounter Details +--------+--------+ + + + | Date | Type | Department | Care Team | Description | +--------+--------+ + + + | 04/06/ | Refill | Cardiology | Elijah Whalen, | Refill Request | | 2016 | | Arrhythmia at [facility] | [address] | (metoprolol,potassiu | | | | [address] | [address] | m chloride) | | | | [place] for [facility] | [place], [place] | | | | | and [place], | [address] | | | | | [facility] | [phone] | | | | | [place], [place] | | | | | | [address] | | | | | | [phone] | | | +--------+--------+ + + + [...] this encounter Miscellaneous Notes Telephone Encounter - Jossue Castillo MA - 04/06/2017 9:49 AM PDTFormatting of this note m ight be different from the original. Refill Request for: Requested Prescriptions Pending Prescriptions Disp Refills metoprolol tartrate 50 mg oral tablet 450 tablet 3 Sig: Take 75mg TID. May take an additional 25mg PRN palpitations potassium chloride SR 20 mEq oral tablet,ER particles/crystals 30 tablet 5 Sig: Take 1 tablet by mouth once daily. Patient Last Seen: Last Appointment in [facility] was on 11/14/16 at 10:00 am wi Elijah Whalen MD. Follow Up Plan: Next Appointment in [facility] is on 05/16/17 at 1:05 pm with Raquel Whalne MD. Please review and sign if appropriate documented in this encounter Plan of Treatment Not on filedocumented as of this encounter Visit Diagnoses Not on filedocumented in this encounter"
--- OUTSIDE RECORDS SUMMARY | ~2020-05-04 | XMS | Encounter Summary ---
Demographics + + + | Address | [address] | | | [place] [address] | + + + | Home Phone [...] + | Gene Gee | ECON | [address] | | | | | [place], | | | | | [place] [address] | | + + + + + Care Team Providers + +------+ + | Care Fly Setter Name | Role | Phone | + +------+ + | Alec Hill MD | PCP | | + +------+ + Encounter Details +--------+ + + + + | Date | Type | Department | Care Team | Description | +--------+ + + + + | 02/02/ | MyChart | [facility] | Tapan Horowitz MD | labs | | 2020 | Encounter | [facility] | [address] | | | | | [facility] | [place], | | | | | [address] | [place] [address] | | | | | [address] | [phone] | | | | | [facility] | | | | | | Physician's | | | | | | [place], | | | | | | [place] [address] | | | | | | [phone] | | | +--------+ + + + [...]
--- OUTSIDE RECORDS SUMMARY | ~2020-05-04 | XMS | Encounter Summary ---
Demographics + + + | Address | [address] | | | [place] [address] | + + + | Home Phone [...] + | Gene Sahil | ECON | [address] | | | | | [place], | | | | | [place] [address] | | + + + + + Care Team Providers + +------+ + | Care Material Requisitioner Name | Role | Phone | + +------+ + | Antony Ribera MD | PCP | | + +------+ + Encounter Details +--------+ + + + + | Date | Type | Department | Care Team | Description | +--------+ + + + + | 06/20/ | Office | UNKNOWN DEPARTMENT | Note, Outpatient | Progress Note | | 2006 | Visit-Trans | [address] [facility] | Clinic | | | | purvi | [address] | | | | | | [place], [place] | | | | | | [address] | | | +--------+ + + + [...] as of this encounter Progress Notes Interface, Auxiliary Engineer In - 07/07/2007 2:25 AM [facility] [id number] SAHIL Holman [id number] Clinic Date: 06/20/2007 Clinic: Medical [facility] Clinic Adriana is a pleasant 61-year-old female with a history of right-sided breast cancer. She is status post right-sided mastectomy, sentinel mapping, and completion lymph node dissection for a T1c N0 (isolated tumor cells only), grade 1 infiltrating ductal carcinoma. Two axillary lymph nodes were involved with isolated tumor cells only. Primary tumor was 1.4 cm, grade 1, estrogen-receptor positive, progesterone-receptor positive, and HER-2 negative for gene amplification by FISH. 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 Adriana has a number of comorbidities which include tachyarrhythmia, Sjogren's syndrome, multiple bouts of abdominal surgeries, and history of small bowel obstruction from adhesion. She is currently undergoing adjuvant chemotherapy with Taxotere and Cytoxan. She completed her first cycle of Taxotere and Cytoxan 4 weeks ago. Last week, she had surgery by Dr. Heart to release scarring in her right axilla. She is here today for a followup appointment with Dr. Heart and us at Medical Oncology. I spent half an hour with her and her , more than half of which was devoted to direct patient consultation. Subjective: Adriana is doing well from her surgery. She now has excellent range of motion over her right shoulder. She is not having much pain any more. Her drain tube was pulled by Dr. Heart today. There is no swelling over her right upper extremity. There is no shooting pain, numbness, or tingling over her right upper extremity. Adriana did have a spike of fever 1 week ago. She had not had any more fevers or chills after that. Adriana did well with her first cycle of chemotherapy. She developed blotchy rashes over her arms and her back a few day after her chemotherapies. She was feeling low energy and nausea, but no vomiting at that time. She also had achiness in her body that was controlled by Tylenol up to 4 tablets a day. She was seen by outside Dermatology and was given antihistamine and topical steroid, and her rashes went away on day 5 after her chemotherapies. She had a transient temperature elevation to 99.1 on day 6. She is taking Compazine occasionally for nausea, but there was no vomiting. She continues to struggle with her bowel movement, but manages to have 1 bowel movement a day. There is no passage of bloody or tarry stool. There is no shortness of breath, cough, sputum production, or hemoptysis. She has no chest pain. No pressure. No abdominal discomfort. She continues to have dryness in her mouth and her eyes. She is using baking soda to rinse, and she denies sore in her mouth. Her taste is off a little bit, but she is able to eat and drink quite normally. She denies numbness or tingling sensation of the tips of her fingers or her toes. She is doing quite well right now. She has restless leg syndrome for which she takes Benadryl at bedtime which also helps with her sleep. On observation, she is afebrile. Her vital signs are stable as documented in EPIC. She is alert and oriented. She is not in acute distress. No oral lesion. Neck is supple. No jugular vein engorgement. No tenderness on percussion over her sinuses. Chest: Symmetric to expansion. Breathing sound is clear. Heart: Regular rhythm. No murmur or gallop. Abdomen: Soft and nontender. No liver, spleen, or mass palpable. No increased rigidity or rebound tenderness. Bowel sound is active. Extremities: No cyanosis, clubbing, or edema. No knocking pain down her spinal column. No CV angle tenderness. Lymphatics: There is no supraclavicular, infraclavicular, axillary, or cervical lymphadenopathy palpable. Breasts exam is not done today. Neurologic: Intact. Assessment and Plan: Adriana is a pleasant 61-year-old female with a history of right-sided early stage breast cancer. She is status post right-sided mastectomy, sentinel mapping, and completion lymph node dissection for a T1c N0 (isolated tumor cells only) grade 1 infiltrating ductal carcinoma. The tumor was receptor positive and HER-2 negative for gene amplification by FISH. She is currently undergoing adjuvant chemotherapy with Taxotere and Cytoxan every 3 weeks. She received and tolerated her first treatment well 4 weeks ago. Adriana received an operation to release the scarring in her right axilla last week. She had a transient fever spike 1 week ago, but has otherwise done very well. She now has excellent range of motion in her right shoulder. Because of her surgery, we are going to postpone her chemotherapy for another 2 weeks. This is to ensure that her wound healing is proper before we initiate her second cycle of treatment. In the meantime, we discussed that fever can be related to central venous catheter infection. If she does have a fever, she needs to present herself to the local emergency room to have blood drawn to rule out line infection. We will see her back in 2 weeks for her second cycle of Taxotere and Cytoxan. Tricia Velazquez M.D., Ph.D. / [id number] / [id number] / [id number] / [id number] cc: Henri Heart M.D. Electronically signed by Tricia Velazquez 07-05-2007 08:56:33 AM documented in this encounter Plan of Treatment Not on filedocumented as of this encounter Visit Diagnoses Not on filedocumented in this encounter"
--- OUTSIDE RECORDS SUMMARY | ~2020-05-04 | XMS | Encounter Summary ---
Demographics + + + | Address | [address] | | | [place] [address] | + + + | Home Phone | | + + + | Preferred Language | Unknown | + + + | Marital Status | | + + + | Cheondoism Affiliation | 1013 | + + + | Race | White | + + + | Ethnic Group | Not or | + + + Author + + + | Author | [facility] | | | and [place] | + + + | Organization | [facility] | | | [...] Team Providers + +------+ + | Care Life Science Teacher Name | Role | Phone | + +------+ + | Alec Hill MD | PCP | | + +------+ + Encounter Details +--------+ + + + + | Date | Type | Department | Care Team | Description | +--------+ + + + + | 07/29/ | Orders Only | [facility] | Conversion | | | 2018 | | CONVERSION DE[address] | Transaction, | | | | | [address] | Provider Unknown | | | | | [place] | [phone] | | | | | [address] | | | | | | [phone] | | | +--------+ + + + [...] | | | | | [place] [address] | | | | | | [phone] | | | | | | | | +--------+ + + + + | 05/19/ | Appointment | Cardiology | Martin Kelley, | | | 2019 | | | MD [address] | | | | | | [place], | | | | | | [place] [address] | | | | | | [phone] | | | | | | | | +--------+ + + + + | 11/26/ | Office | Cardiology | Martin Kelley, | | | 2020 | Visit | | MD [address] | | | | | | [place], | | | | | | [place] [address] | | | | | | [phone] | | | | | | | | +--------+ + + + + documented as of this encounter Visit Diagnoses Not on filedocumented in this encounter"
--- OUTSIDE RECORDS SUMMARY | ~2020-05-04 | XMS | Encounter Summary ---
Demographics + + + | Address | [address] | | | [place] [address] | + + + | Home Phone [...] + | Gene Gee | ECON | [address] | | | | | [place], | | | | | [place] [address] | | + + + + + Care Team Providers + +------+ + | Care Cardiovascular Technologist Name | Role | Phone | + +------+ + | Alec Hill MD | PCP | | + +------+ + Reason for Visit + +--------+ + | Reason | Onset | Comments | | | Date | | + +--------+ + | Refill Request | 12/09/ | | | | 2020 | | + +--------+ + Encounter Details +--------+--------+ + + + | Date | Type | Department | Care Team | Description | +--------+--------+ + + + | 12/09/ | Refill | Pulmonary & | Juana Kilgore MD | Refill Request | | 2020 | | Critical Care | [address] | | | | | Medicine at | [address] [place], | | | | | [facility] | [place] [address] | | | | | [address] | [phone] | | | | | [address] [facility] | | | | | | [place], 3rd Floor | | | | | | [place], [place] | | | | | | [address] | | | | | | [phone] | | | +--------+--------+ + + + [...] this encounter Miscellaneous Notes Telephone Encounter - Yajaira Geronimo MA - 12/10/2019 3:49 PM PDT Requested Prescriptions Pending Prescriptions Disp Refills ipratropium 0.02 % inhalation solution 140 mL 3 Sig: Inhale 2.5 mL(ONE AMPULE) via nebulizer every six hours as needed (Suraj of jillian soni). documented in this e ncounter Plan of Treatment Not on filedocumented as of this encounter Visit Diagnoses Not on filedocumented in this encounter"
--- OUTSIDE RECORDS SUMMARY | ~2020-05-04 | XMS | Encounter Summary ---
Demographics + + + | Address | [address] | | | [place] [address] | + + + | Home Phone [...] + | Gene Gee | ECON | [address] | | | | | [place], | | | | | [place] [address] | | + + + + + Care Team Providers + +------+ + | Care Proposal Writer Name | Role | Phone | + +------+ + | Antony Ribera MD | PCP | | + +------+ + Encounter Details +--------+ + + + + | Date | Type | Department | Care Team | Description | +--------+ + + + + | 09/01/ | Abstract | Cardiology General | Unknown . | | | 2017 | | at [facility] [address] | | | | | | [facility] | | | | | [facility], | | | | | | Building | | | | | | Floor [place], [place] | | | | | | [address] | | | | | | [phone] | | | +--------+ + + + [...]
--- OUTSIDE RECORDS SUMMARY | ~2020-05-04 | XMS | Encounter Summary ---
Demographics + + + | Address | [address] | | | [place] [address] | + + + | Home Phone [...] + | Gene Gee | ECON | [address] | | | | | [place], | | | | | [place] [address] | | + + + + + Care Team Providers + +------+ + | Care Director Of Exhibits Name | Role | Phone | + +------+ + | Antony Ribera MD | PCP | | + +------+ + Reason for Referral Physical Therapy (Routine) +--------+--------+ + + + + | Status | Reason | Specialty | Diagnoses / | Referred By | Referred To | | | | | Procedures | Contact | Contact | +--------+--------+ + + + + | Closed | | Physical | Diagnoses | Alla, | [facility] | | | | Therapy | Breast | Hemangini J, | [address] | | | | | cancer (HCC) | [address] | [facility] | | | | | Scar | [facility] | for Health | | | | | Breast pain | [address] | and Healing, | | | | | Procedures | [facility] | [address], | | | | | PHYSICAL | [place] [address] | 1st Floor | | | | | THERAPY | Phone: | [place], [place] | | | | | REFERRAL | [phone] | [address] | | | | | | Fax: | Phone: | | | | | | [phone] | [phone] | | | | | | | Fax: | | | | | | | [phone] | +--------+--------+ + + + + Reason for Visit + + + | Reason | Comments | + + + | Procedure | R EDMAR rosenbergon and R medial scar revision | + + + Encounter Details +--------+ + + + + | Date | Type | Department | Care Team | Description | +--------+ + + + + | 03/05/ | Procedure | Plastic and | Errol Gold | Procedure (R NAC | | 2012 | | Reconstructive | MD Manda [address] | redon and Radha keyes | | | | Surgery at [facility] [address] | scar revision) | | | | [facility] | [address] [place], [place] | | | | | for Health and | [id number] | | | | | [facility], | | | | | | 5th Floor | | | | | | [place], [place] | | | | | | [address] | | | | | | [phone] | | | +--------+ + + + [...] + | Blood Pressure | 120/70 | 03/05/2013 12:57 PM | | | | | PDT | | + + + + + | Pulse | 73 | 03/05/2013 12:57 PM | | | | | PDT | | + + + + + | Temperature | - | - | | + + + + + | Respiratory Rate | 16 | 03/05/2013 12:57 PM | | | | | PDT | | + + + + + | Oxygen Saturation | 100% | 03/05/2013 12:57 PM | | | | | PDT | | + + + + + | Inhaled Oxygen | - | - | | | Concentration | | | | + + + + + | Weight | 65.2 kg (143 lb 12.8 | 03/05/2013 12:57 PM | | | | oz) | PDT | | + + + + + | Height | 166.4 cm (5' 5.5") | 03/05/2013 12:57 PM | | | | | PDT | | + + + + + | Body Mass Index | 23.57 | 03/05/2013 12:57 PM | | | | | PDT | | + + + + + documented in this encounter Progress Notes Alla Buchanan, Binuni J - 03/05/2013 2:50 PM PDTProcedure: Nipple-Areolar Reconstruction Procedure Date: 03/05/2013 Attending Physician: Mark Gold MD Assistants: Wyatt Brooks MD Preoperative Diagnosis: Right breast absence of nipple Status-post right breast reconstruction Redundant right breast scar History of breast cancer Postoperative Diagnosis: Same Procedure Performed: Right nipple areolar complex reconstruction Right breast medial scar revision 4 cm Anesthesia: Local Estimated Blood Loss: 10 cc Specimens: None Complications: None Findings: Flaps pink and healthy at end of procedure. Statement of Faculty Presence: Dr. Gold was present for the entirety of this case. Statement of Medical Necessity: Ms. Flynn is a 67 y.o. female status-post right breast jessica nstruction with implants. She presents today for nipple reconstruction. The risks, benefits and alternatives of nipple reconstruction were discussed with the patient. She understands t hat today's procedure will make a new nipple mound and that a subsequent procedure in severa l months will be done to micropigment the areola. The risks of nipple reconstruction includi ng but not limited to bleeding, scar, pain, infection, swelling, bruising, hematoma, seroma, numbness, failure to heal, cosmetic defect such as asymmetry, need for more procedures and allergy to medications were discussed with the patient. All questions were answered. The pat raiza gave her informed consent which can be found on the chart. Description of procedure: Prior to the procedure, the location of the new nipple was planne d and marked with the patient's input. Patient was then brought to the procedure room and pl aced on the operating room table in the supine position. All pressure points were padded. A surgical pause was taken where the patient's name, medical record number, and surgical site were verified. We then anesthestized the operative areas with 2% lidocaine with 0.5% marcain e with epinephrine (1:1). Our attention was first turned to medial scar. This was marked for resection preoperatively. The redundant scar was excised with a #15 blade. This area measur ed 4 cm. Excess subcutaneous tissues were resected with electrocautery. The wound was closed with interrupted 4-0 Biosyn sutures to close the deep dermis followed by a running 4-0 Bios yn suture to close the skin in a subcuticular fashion. Our attention was next turned to the nipple reconstruction. The proposed C-V flap design was marked. The right breast was prepped and draped in the usual sterile fashion. The skin and subcutaneous flaps were elevated with a #15 blade. The would was irrigated with saline and hemostasis was ensured with electrocau joel. The lateral and medial donor sites were then closed with interrupted 3-0 Biosyn suture s to close the deep dermis followed by a running 4-0 Biosyn suture in a subcuticular fashion to close the skin. The lateral and medial arms of the flap were brought together and sewn i n place with interrupted 3-0 Biosyn deep dermal sutures. The top portion of the flap was jay pproximated with interrupted 3-0 Biosyn deep dermal sutures as well. Skin was then closed wi th interrupted 4-0 Nylon sutures. The wounds were cleansed and dried. Bacitracin and xeroform was applied to the nipple recon struction and the incisions were dressed with Tegaderm and gauze. Dermabond was applied to t he medial scar revision. The patient tolerated the procedure well and without complication. The flaps were pink and viable at the end of the procedure. Patient will follow up in 2 weeks for a wound check. documented in this encounter Miscellaneous Notes Scan - Other, Faculty - 03/05/2013 4:09 PM PDTElectronically signed by Faculty Other at 4:09 PM PDTdocumented in this encounter Plan of Treatment Not on filedocumented as of this encounter Visit Diagnoses + + | Diagnosis | + + | Carcinoma in situ of breast - Primary | + + | Acquired Absence of Breast Acquired absence of breast and nipple | + + | Breast cancer (HCC) Malignant neoplasm of breast (female), unspecified site | + + | Scar Scar condition and fibrosis of skin | + + | Breast pain Mastodynia | + + documented in this encounter
--- OUTSIDE RECORDS SUMMARY | ~2020-05-04 | XMS | Encounter Summary ---
Demographics + + + | Address | [address] | | | [place] [address] | + + + | Home Phone [...] + | Gene Gee | ECON | [address] | | | | | [place], | | | | | [place] [address] | | + + + + + Care Team Providers + +------+ + | Care Medicine Tech Name | Role | Phone | + +------+ + | Antony Ribera MD | PCP | | + +------+ + Reason for Visit + + + | Reason | Comments | + + + | Bone Density Scan | | + + + Encounter Details +--------+---------+ + + + | Date | Type | Department | Care Team | Description | +--------+---------+ + + + | 09/05/ | Office | Endocrinology, | | Symptomatic | | 2007 | Visit | Diabetes and | | Menopausal or Female | | | | Clinical Nutrition | | Climacteric States | | | | [address] | | (Primary Dx); Sicca | | | | Mailcode: CH8A | | Syndrome (HCC); | | | | [facility] | | Intestinal | | | | and Healing, | | Disaccharidase | | | | [address] | | Deficiencies and | | | | [place], [place] | | Disaccharide | | | | [address] | | Malabsorption | | | | [phone] | | | +--------+---------+ + + + [...] + documented as of this encounter Progress Kendra Guerrero - 09/11/2007 10:22 AM PSTBone density scans performed. Please see the Inter pretation Report, located in chart Review, under the Media tab. documented in this encount er Miscellaneous Notes Larisa - Gisele Strong - 05/15/2012 3:12 PM PDTElectronically signed by Gisele Strong at 3:12 PM PDTdocumented in this encounter Plan of Treatment + +---------+--------+ + + | Name | Type | Priori | Associated Diagnoses | Order Schedule | | | | ty | | | + +---------+--------+ + + | OK DXA BONE | Imaging | Routin | Sicca Syndrome | Ordered: 09/11/2007 | | DENSITY,AXIAL GLOBAL | | e | ([facility]) Symptomatic | | | | | | Menopausal or Female | | | | | | Climacteric States | | | | | | Intestinal | | | | | | Disaccharidase | | | | | | Deficiencies and | | | | | | Disaccharide | | | | | | Malabsorption | | + +---------+--------+ + + documented as of this encounter Visit Diagnoses + + | Diagnosis | + + | Symptomatic menopausal or female climacteric states - Primary | + + | Sicca syndrome (HCC) Sicca syndrome | + + | Intestinal disaccharidase deficiencies and disaccharide malabsorption | + + documented in this encounter"
--- OUTSIDE RECORDS SUMMARY | ~2020-05-04 | XMS | Encounter Summary ---
Demographics + + + | Address | [address] | | | [place] [address] | + + + | Home Phone [...] + | Gene Gee | ECON | [address] | | | | | [place], | | | | | [place] [address] | | + + + + + Care Team Providers + +------+ + | Care Clerk Entry Level Name | Role | Phone | + +------+ + | Antony Ribera MD | PCP | | + +------+ + Encounter Details +--------+ + + + + | Date | Type | Department | Care Team | Description | +--------+ + + + + | 06/30/ | MyChart | Plastic and | Errol Gold | RE: New RX for | | 2012 | Encounter | Reconstructive | MD [address] | physical therapy | | | | Surgery at [facility] [address] | | | | | [facility] | [address] [place], [place] | | | | | for Health and | [address] | | | | | Healing, [address], | | | | | | [facility] | | | | | | [place], [place] | | | | | | [address] | | | | | | [phone] | | | +--------+ + + + [...] this encounter Miscellaneous Notes Telephone Encounter - Trudi Guadarrama - 06/30/2013 11:02 AM PSTRx for PT written and sent to [phone] to [facility] per pt request. Let pt know via [facility] Electronically sig elenita by Trudi Guadarrama at 06/30/2013 11:02 AM PSTdocumented in this encounter Plan of Treatment Not on filedocumented as of this encounter Visit Diagnoses + + | Diagnosis | + + | Breast cancer (HCC) - Primary Malignant neoplasm of breast (female), unspecified site | + + documented in this encounter"
--- OUTSIDE RECORDS SUMMARY | ~2020-05-04 | XMS | Encounter Summary ---
Demographics + + + | Address | [address] | | | [place] [address] | + + + | Home Phone [...] + | Gene Gee | ECON | [address] | | | | | [place], | | | | | [place] [address] | | + + + + + Care Team Providers + +------+ + | Care Copier Technician Name | Role | Phone | + +------+ + | Alec Hill MD | PCP | | + +------+ + Reason for Visit + +--------+ + | Reason | Onset | Comments | | | Date | | + +--------+ + | Medication Question | 12/04/ | Meds through part D | | | 2019 | | + +--------+ + Encounter Details +--------+ + + + + | Date | Type | Department | Care Team | Description | +--------+ + + + + | 12/04/ | Telephone | Pulmonary & | Juana Kilgore MD | Medication Question | | 2019 | | Critical Care | [address] | (Meds through part | | | | Medicine at | [facility], | D) | | | | [facility] [place] | [place] [address] | | | | | [address] | [phone] | | | | | [facility] | | | | | | [place], [address] [place] [address] | | | | | | [place], [place] | | | | | | [address] | | | | | | [phone] | | | +--------+ + + + [...] Telephone Encounter - Virginia Castro MA - 12/05/2018 1:19 PM PDTFaxed signed form back to [facility] and called the patient to let her know this was done. Form scanned in under Written tab and attached to this encounter. elephone Encounter - Virginia Castro MA - 12/04/2018 3:16 P M PDTCalled and spoke with the patient, let her know that Dr. Kilgore has been out of the offi ce and today was her first day back. I told the patient that I anticipate having the forms b ack from Dr. Kilgore by the end of the week. Advised that once we send the forms out we will c all to let her know it has been taken care of. Patient was accepting of this information. El ectronically signed by Virginia Castro MA at 12/04/2018 3:18 PM PDTTelephone Encounter - Zari Dorantes - 12/04/2018 12:35 PM PDTPatient called to report she is having difficulti es getting her nebulizer solution filled at her local [facility]. Certain forms are required. MA staff- please call patient back for further info. documented in this enco unter Plan of Treatment Not on filedocumented as of this encounter Visit Diagnoses Not on filedocumented in this encounter"
--- OUTSIDE RECORDS SUMMARY | ~2020-05-04 | XMS | Encounter Summary ---
Demographics + + + | Address | [address] | | | [place] [address] | + + + | Home Phone [...] + | Gene Gee | ECON | [address] | | | | | [place], | | | | | [place] [address] | | + + + + + Care Team Providers + +------+ + | Care Herb Digger Name | Role | Phone | + +------+ + | Antony Ribera MD | PCP | | + +------+ + Encounter Details +--------+ + + + + | Date | Type | Department | Care Team | Description | +--------+ + + + + | 11/16/ | MyChart | Cardiology | Elijah Whalen, | RE: Cathy knapp | | 2017 | Encounter | Arrhythmia at [facility] | [address] | | | | | [address] | [address] | | | | | [facility] | [place], [place] | | | | | and Healing, | [address] | | | | | [place] [address] [facility] | [phone] | | | | | Floor [place], [place] | | | | | | [address] | | | | | | [phone] | | | +--------+ + + + [...]
--- OUTSIDE RECORDS SUMMARY | ~2020-05-04 | XMS | Encounter Summary ---
Demographics + + + | Address | [address] | | | [place] [address] | + + + | Home Phone | | + + + | Preferred Language | Unknown | + + + | Marital Status | | + + + | Episcopal Affiliation | CHR | + + + [...] + | Gene Gee | ECON | [address] | | | | | [place], | | | | | [place] [address] | | + + + + + Care Team Providers + +------+ + | Care Extension Service Specialist Name | Role | Phone | + +------+ + | Antony Ribera MD | PCP | | + +------+ + Reason for Visit + +--------+ + | Reason | Onset | Comments | | | Date | | + +--------+ + | Swelling | 10/14/ | | | | 2012 | | + +--------+ + Encounter Details +--------+ + + + + | Date | Type | Department | Care Team | Description | +--------+ + + + + | 10/14/ | Telephone | Plastic and | Errol Gold | Swelling | | 2012 | | Reconstructive | MD [address] | | | | | Surgery at [facility] [address] | | | | | [facility] | [address] [place], [place] | | | | | for Health and | [address] | | | | | Healing, [address], | | | | | | 5th Floor | | | | | | [place], [place] | | | | | | [address] | | | | | | [phone] | | | +--------+ + + + [...] this encounter Miscellaneous Notes Telephone Encounter - Eduardo Jorge MA - 10/14/2012 9:49 AM PDTThe patient called statin g her left breast upper pole swelling hasn't subsided, go worse or better as it's the same. Denies: fever, chills, tremors, N&V, redness or warmth to the touch. The patient will continue to monitor this area for S&S of infection,seroma or hematoma's an d will call back if S&S appear. Patient understood the above instructions. The patient was instructed to call back with an y futher questions or concerns. elephone Encounter - Madeline España - 10/14/2012 9:40 AM PDTCarol would like to inform Santiago that the swelling has not improved since last when she was last seen. documented in this encounter Plan of Treatment Not on filedocumented as of this encounter Visit Diagnoses Not on filedocumented in this encounter"
--- OUTSIDE RECORDS SUMMARY | ~2020-05-04 | XMS | Encounter Summary ---
Demographics + + + | Address | [address] | | | [place] [address] | + + + | Home Phone [...] + | Gene Gee | ECON | [address] | | | | | [place], | | | | | [place] [address] | | + + + + + Care Team Providers + +------+ + | Care Supervisor Waterproofing Name | Role | Phone | + +------+ + | Antony Ribera MD | PCP | | + +------+ + Reason for Visit + +--------+ + | Reason | Onset | Comments | | | Date | | + +--------+ + | Palpitations | 03/13/ | | | | 2010 | | + +--------+ + Encounter Details +--------+ + + + + | Date | Type | Department | Care Team | Description | +--------+ + + + + | 03/13/ | Telephone | Cardiology General | Monique Middleton, | Palpitations | | 2010 | | at [facility] [address] | [employer] | | | | | [facility] | | | | | | Health and Healing, | | | | | | [facility] | | | | | | Floor [place], [place] | | | | | | [address] | | | | | | [phone] | | | +--------+ + + + [...] Telephone Encounter - Monique Middleton Np - 03/13/2011 9:41 AM PDTCarol had an episode this weekend that bothered her. She was laying in bed and noticed her heart was beating faster. She became concerned. Her son is a nurse and he took her pulse and it was 110. She felt like things were fluttering. They went to the [facility] but her symptoms had resol chalino by then. She reports that everything was normal. They had her take an extra atenolol. She feels fine today. Told her it was hard to know what happened but it sounds like she bhakta d an arrhythmia. Without an EKG being done at the time of the symptoms we will not know wha t was going on. I did not make any changes. She will keep track of her symptoms and get an EKG sooner if they should reoccur. She has an appt to see Dr Fuentes in April documented in this encounter Plan of Treatment Not on filedocumented as of this encounter Visit Diagnoses Not on filedocumented in this encounter"
--- OUTSIDE RECORDS SUMMARY | ~2020-05-04 | XMS | Encounter Summary ---
Demographics + + + | Address | [address] | | | [place] [address] | + + + | Home Phone [...] + | Gene Gee | ECON | [address] | | | | | [place], | | | | | [place] [address] | | + + + + + Care Team Providers + +------+ + | Care Fiberglass Container Winding Operator Name | Role | Phone | + +------+ + | Antony Ribera MD | PCP | | + +------+ + Encounter Details +--------+ + + + + | Date | Type | Department | Care Team | Description | +--------+ + + + + | 06/20/ | Office | Hematology/Medical | Stevan Velazquez, | | | 2006 | Visit-ECX | Oncology at [facility] | [address] | | | | | [address] | [place], [place] | | | | | Mailcode: [place] | [address] | | | | | [facility] | [phone] | | | | | and Healing, | | | | | | [facility] | | | | | | Floor [place], [place] | | | | | | [address] | | | | | | [phone] | | | +--------+ + + + [...] + + + | Blood Pressure | 113/58 | 06/20/2007 1:32 PM | | | | | PST | | + + + + + | Pulse | 71 | 06/20/2007 1:32 PM | | | | | PST | | + + + + + | Temperature | 37.3 C (99.2 F) | 06/20/2007 1:32 PM | | | | | PST [...] | Weight | 67 kg (147 lb 11.3 | 06/20/2007 1:32 PM | | | | oz) | PST | | + + + + + | Height | - | - | | + + + + + | Body Mass Index | 24.21 | 05/02/2007 2:06 PM | | | | | PDT | | + + + + + documented in this encounter Plan of Treatment Not on filedocumented as of this encounter Visit Diagnoses Not on filedocumented in this encounter"
--- OUTSIDE RECORDS SUMMARY | ~2020-05-04 | XMS | Encounter Summary ---
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 | Phone | + +------+ + | Antony Ribera MD | PCP | | + +------+ + Reason for Visit + + + | Reason | Comments | + + + | Transfer of Care | | + + + Office Visit - E/M Services (Routine) +--------+--------+ + + + + | Status | Reason | Specialty | Diagnoses / | Referred By | Referred To | | | | | Procedures | Contact | Contact | +--------+--------+ + + + + | Closed | | Pulmonary | | [facility] | | | | Disease | | Epic Dept | [facility] | | | | | | | [address] | [address] | [address] | | | | | | | Physician's | | | | | | | [facility], | | | | | | | 3rd Floor | | | | | | | [place], [place] | | | | | | | [address] | | | | | | | Phone: | | | | | | | [phone] | | | | | | | Fax: | | | | | | | [phone] | +--------+--------+ + + + + Encounter Details +--------+---------+ + + + | Date | Type | Department | Care Team | Description | +--------+---------+ + + + | 01/02/ | Office | Pulmonary & | Dez Hansen, | Moderate persistent | | 2016 | Visit | Critical Care | ,PhD [address] [facility] | asthma with acute | | | | Medicine at | [address] | exacerbation | | | | [facility] | [place], [place] | (Primary Dx); | | | | [address] | [address] | Chronic sinusitis, | | | | [address] [facility] | [phone] | unspecified location | | | | [address], [address] Floor | | | | | | [place], [place] | | | | | | [address] | | | | | | [phone] | | | +--------+---------+ + + + [...] + + + | Blood Pressure | 128/78 | 01/03/2016 11:32 AM | | | | | PDT | | + + + + + | Pulse | 66 | 01/03/2016 11:32 AM | | | | | PDT | | + + + + + | Temperature | 36.8 C (98.2 F) | 01/03/2016 11:32 AM | | | | | PDT | | + + + + + | Respiratory Rate | 18 | 01/03/2016 11:32 AM | | | | | PDT | | + + + + + | Oxygen Saturation | 100% | 01/03/2016 11:32 AM | | | | | PDT | | + + + + + | Inhaled Oxygen | - | - | | | Concentration | | | | + + + + + | Weight | - | - | | + + + + + | Height | 166.4 cm (5' 5.5") | 01/03/2016 11:32 AM | | | | | PDT | | + + + + + | Body Mass Index | - | - | | + + + + + documented in this encounter Patient Instructions Patient Instructions Dez Hansen MD,PhD - 01/03/2016 12:25 PM PDTWhat is my diagnosis/W hat am I being treated for? - Asthma exacerbation What is my plan for today s visit (what tests I have to do when I leave, how am I suppose d to use my medications)? - Replace albuterol with ipratropium (Nebulizer or MDI) Use either up to 4 times daily (Try to use at least three times daily at first) - It is okay to use albuterol in addition to Ipratropium is needed for shortness of breath - Continue with budesonide (Pulmicort) Three puffs twice daily - Trial of montelukast (Singular) 10 mg daily continue for at least three months - 10-day taper of prednisone - Follow up in 6 months - 30-day follow up by [facility] What needs to happen for my condition to improve/resolve? - Continue to use controlled medications What is the name of the doctor I saw today? - Dez Hansen MD,PhD How do I get in touch with the doctor(s) in case I have a question? - Call [phone] We recommend signing up for [employer] our secure online messaging system that will allow you to communicate with your provider electronically. Directions for signing up are included in this packet. My Chart is an excellent way to ask questions and get advice about non-urgent problems. For more pressing concerns, call our office. In the event of an medical emergency you chris quiñones call 911 or present to the nearest Emergency Room. ipratropium inhalation Pronunciation: WILMAR ra TRO gopie um Brand: Atrovent HFA What is ipratropium inhalation? Ipratropium is a bronchodilator that relaxes muscles in the airways and increases air flow to the lungs. Ipratropium inhalation is used to prevent bronchospasm, or narrowing airways in the lungs, in people with bronchitis, emphysema, or COPD (chronic obstructive pulmonary disease). Ipratropium inhalation may also be used for purposes not listed in this medication guide. What should I discuss with my healthcare provider before using ipratropium inhalation? You should not use this medication if you are allergic to ipratropium or atropine. To make sure ipratropium is safe for you, tell your doctor if you have: narrow-angle glaucoma; or an enlarged prostate, bladder obstruction, or urination problems. FDA category B. Ipratropium is not expected to harm an unborn baby. Tell your doc tor if you are or plan to become during treatment. It is not known whether ipratropium passes into breast milk or if it could harm a nursing b negra. Tell your doctor if you are breast-feeding a baby. Do not give this medicine to a child without medical advice. How should I use ipratropium inhalation? Follow all directions on your prescription label. Do not use this medicine in larger or sma ller amounts or for longer than recommended. Ipratropium will not work fast enough to treat an bronchospasm attack. Use only a fast acti ng inhalation medicine to treat an bronchospasm attack. Prime the inhaler device before the first use by pumping 2 test sprays into the air, away f rom your face. Prime the inhaler if it has not been used for longer than 3 days. Clean the i nhaler once a week. Follow the cleaning directions that came with your medicine. The dose indicator on the inhaler will turn from green to red when there are 40 doses left in the device. Get your prescription refilled before you run out of medicine completely. Brittney hill use the new device provided with the medication when you get your prescription filled. Call your doctor right away if it seems like your medications don't work as well, or if you r condition gets worse. While using ipratropium, your lung function may need to be tested often. Keep the medicine canister away from open flame or high heat, such as in a car on a hot day . The canister may explode if it gets too hot. Do not puncture or burn an empty inhaler cani ster. Store the inhaler device with the cover on, at room temperature away from moisture and heat . Throw away the inhaler canister when the dose indicator reaches 0, even if it feels like t here is still medicine in it. What happens if I miss a dose? Use the missed dose as soon as you remember. Skip the missed dose if it is almost time for your next scheduled dose. Do not use extra medicine to make up the missed dose. What happens if I overdose? Seek emergency medical attention or call the Poison Help line at . What should I avoid while using ipratropium inhalation? Avoid getting this medication in your eyes. If this happens, rinse with water. This medication may cause blurred vision and may impair your thinking or reactions. Be care ful if you drive or do anything that requires you to be alert and able to see clearly. What are the possible side effects of ipratropium inhalation? Get emergency medical help if you have any of these signs of an allergic reaction: hives; d ifficult breathing; swelling of your face, lips, tongue, or throat. Stop using ipratropium and call your doctor at once if you have a side effect such as: bronchospasm (wheezing, chest tightness, trouble breathing), especially after starting a new canister of this medicine; blurred vision, eye pain, or seeing halos around lights; pain or burning when you urinate; urinating less than usual or not at all; or worsening of your symptoms. Other common side effects may include: headache, dizziness; stuffy nose, sinus pain, dry mouth, cough, hoarseness; nausea, upset stomach, constipation; back pain; or fever, chills, body aches, flu symptoms. This is not a complete list of side effects and others may occur. Call your doctor for [facility] advice about side effects. You may report side effects to FDA at 8-822-JAD-1453. What other drugs will affect ipratropium inhalation? Tell your doctor about all medicines you use, and those you start or stop using during your treatment with ipratropium, especially: bladder or urinary medicine such as darifenacin, fesoterodine, oxybutynin, tolterodine, or solfenacin; other bronchodilators such as tiotropium; cold or allergy medicine that contains an antihistamine; medication for Parkinson's disease; or medication to treat excess stomach acid, stomach ulcer, motion sickness, or irritable samir wel syndrome. This list is not complete. Other drugs may interact with ipratropium, including prescriptio n and ucbg-xil-peohvws medicines, vitamins, and herbal products. Not all possible interactio ns are listed in this medication guide. Where can I get more information? Your pharmacist can provide more information about ipratropium inhalation. Remember, keep this and all other medicines out of the reach of children, never share your medicines with others, and use this medication only for the indication prescribed. Every effort has been made to ensure that the information provided by [employer]. ( '[employer]') is accurate, up-to-date, and complete, but no guarantee is made to that effect. Dr walter information contained herein may be time sensitive. [employer] information has been compiled for use by healthcare practitioners and consumers in the [place] and therefore [employer] does not warrant that uses outside of the [place] are appropriate, unless specifically indicated otherwise. [employer] drug information does not endorse drugs, diagnose patients or recommend therapy. [employer] drug information is an informational resource designed to janet t licensed healthcare practitioners in caring for their patients and/or to serve consumers v iewing this service as a supplement to, and not a substitute for, the expertise, skill, know ledge and judgment of healthcare practitioners. The absence of a warning for a given drug or drug combination in no way should be construed to indicate that the drug or drug combinatio n is safe, effective or appropriate for any given patient. [employer] does not assume any respon sibility for any aspect of healthcare administered with the aid of information [facility] provid es. The information contained herein is not intended to cover all possible uses, directions, precautions, warnings, drug interactions, allergic reactions, or adverse effects. If you bhakta ve questions about the drugs you are taking, check with your doctor, nurse or pharmacist. Copyright 3893-2444 [employer]. Version: 10.. Revision date: 07/01/2012. This information does not replace the advice of a doctor. [employer] disclaim s any warranty or liability for your use of this information. Content Version: 10.9.979326 montelukast Pronunciation: magdalena Francis yobanimichael Brand: Conor What is montelukast? Montelukast is a leukotriene (mwx-jyl-FKE-een) inhibitor. Leukotrienes are chemicals your b ishaan releases when you breathe in an allergen (such as pollen). These chemicals cause swellin g in your lungs and tightening of the muscles around your airways, which can result in asthm a symptoms. Montelukast is used to prevent asthma attacks in adults and children as young as 12 months old. Montelukast is also used to prevent exercise-induced bronchospasm in adults and childre n who are at least 6 years old. Montelukast is also used to treat symptoms of year-round (perennial) allergies in adults an d children who are at least 6 months old. It is also used to treat symptoms of seasonal clementine rgies in adults and children who are at least 2 years old. Do not give this medicine to a child without a doctor's advice. Montelukast is also used to prevent exercise-induced bronchoconstriction (narrowing of the air passages in the lungs) in adults and teenagers who are at least 15 years old and are not already taking this medicine for other conditions. If you already take montelukast to prevent asthma or allergy symptoms, do not use an extra dose to treat exercise-induced bronchoconstriction. Montelukast may also be used for purposes not listed in this medication guide. What should I discuss with my healthcare provider before taking montelukast? You should not use montelukast if you are allergic to it. To make sure montelukast is safe for you, tell your doctor if you have: asthma, or a history of severe allergic reaction to aspirin. The chewable tablet may contain phenylalanine. Talk to your doctor before using this form o f montelukast if you have phenylketonuria (PKU). Montelukast is not expected to be harmful to an unborn baby. Tell your doctor if you are pr egnant or plan to become during treatment. It is not known whether montelukast passes into breast milk or if it could harm a nursing b negra. Tell your doctor if you are breast-feeding a baby. How should I take montelukast? Follow all directions on your prescription label. Do not take this medicine in larger or sm aller amounts or for longer than recommended. Montelukast is usually taken once daily in the evening for prevention of asthma or allergy symptoms. For exercise-induced bronchoconstriction, take a single dose at least 2 hours befo re you exercise, and do not take another dose for at least 24 hours. Follow your doctor's in structions. Montelukast is not a rescue medicine. It will not work fast enough to treat an asthma attac k. Use only a fast acting inhalation medicine for an asthma attack. Tell your doctor if it s eems like your asthma medications don't work as well. Swallow the regular tablet whole, with a glass of water. The chewable tablet must be chewed completely before you swallow it. The oral granules can be placed directly into the mouth and swallowed, or mixed with a spo onful of applesauce, mashed carrots, rice, or ice cream. Oral granules can also be mixed wit h 1 teaspoon of baby formula or breast milk. Do not use any other type of liquid for mixing the granules. Other liquids can be taken before or after taking the medicine. After opening or mixing the oral granules, you must use them within 15 minutes. Do not save an open packet or mixed medicine for later use. It may take up to several weeks before your symptoms improve. Keep using the medication as directed and tell your doctor if your symptoms do not improve after several weeks of treatme nt. If you also take a steroid asthma medicine, do not stop using it suddenly without first marilu lily to your doctor. You may need to use less and less before you stop the medication comple tely. Asthma is usually treated with a combination of drugs. Use all medications as directed by y our doctor. Read the medication guide or patient instructions provided with each medication. Do not change your doses or medication schedule without your doctor's advice, even if you h ave no asthma symptoms. Store at room temperature away from moisture and heat. Do not open a packet of oral granule s until you are ready to use the medicine. What happens if I miss a dose? Take the missed dose as soon as you remember. Skip the missed dose if it is almost time for your next scheduled dose. Do not take extra medicine to make up the missed dose. What happens if I overdose? Seek emergency medical attention or call the Poison Help line at . What should I avoid while taking montelukast? Avoid situations or activities that may trigger an asthma attack. If your asthma symptoms get worse when you take aspirin, avoid taking aspirin or other NSAI Ds (nonsteroidal anti-inflammatory drugs) while you are taking montelukast. NSAIDs include i buprofen (Advil, Motrin), naproxen (Aleve), celecoxib, diclofenac, indomethacin, meloxicam, and others. What are the possible side effects of montelukast? Get emergency medical help if you have signs of an allergic reaction: hives; difficulty br eathing; swelling of your face, lips, tongue, or throat. Call your doctor at once if you have: unusual changes in mood or behavior; skin rash, bruising, severe tingling, numbness, pain, muscle weakness; ear pain, swelling, or warmth; or severe skin reaction --fever, sore throat, swelling in your face or tongue, burning in y our eyes, skin pain, followed by a red or purple skin rash that spreads (especially in the f april or upper body) and causes blistering and peeling. Common side effects may include: stomach pain, diarrhea; fever or other flu symptoms; cold symptoms such as stuffy nose, sinus pain, cough, sore throat; headache; or bed-wetting or loss of bladder control in children. This is not a complete list of side effects and others may occur. Call your doctor for medi olga advice about side effects. You may report side effects to FDA at 6-617-DXS-5023. What other drugs will affect montelukast? Other drugs may interact with montelukast, including prescription and vjsl-jdy-ezrpuds medi cines, vitamins, and herbal products. Tell each of your health care providers about all medi cines you use now and any medicine you start or stop using. Where can I get more information? Your pharmacist can provide more information about montelukast. Remember, keep this and all other medicines out of the reach of children, never share your medicines with others, and use this medication only for the indication prescribed. Every effort has been made to ensure that the information provided by [employer] ( '[employer]') is accurate, up-to-date, and complete, but no guarantee is made to that effect. Dr ug information contained herein may be time sensitive. [employer] information has been compiled for use by healthcare practitioners and consumers in the [place] and therefore [employer] does not warrant that uses outside of the [place] are appropriate, unless specifically indicated otherwise. [employer] drug information does not endorse drugs, diagnose patients or recommend therapy. [employer] drug information is an informational resource designed to janet t licensed healthcare practitioners in caring for their patients and/or to serve consumers v iewing this service as a supplement to, and not a substitute for, the expertise, skill, know ledge and judgment of healthcare practitioners. The absence of a warning for a given drug or drug combination in no way should be construed to indicate that the drug or drug combinatio n is safe, effective or appropriate for any given patient. [employer] does not assume any respon sibility for any aspect of healthcare administered with the aid of information [employer] provid es. The information contained herein is not intended to cover all possible uses, directions, precautions, warnings, drug interactions, allergic reactions, or adverse effects. If you bhakta ve questions about the drugs you are taking, check with your doctor, nurse or pharmacist. Copyright 3996-3701 [employer]. Version: 13.01. Revision date: 07/07/2014. This information does not replace the advice of a doctor. [employer] disclaim s any warranty or liability for your use of this information. Content Version: 10.9.914638 documented in this encounter Progress Notes Dez Hansen MD,PhD - 01/03/2016 11:52 AM PDT Date: 01/03/2016 Primary Care Provider: Antony Ribera MD [facility] [address] [place] [address] Referring Provider: Antony Ribera MD [facility] [address] [facility] [address] [place] [address] Ms. Lauren Baxter is a 70-year-old woman in the [facility] today for the follow up of Asthma. She was last seen in clinic on 09/29/2014 by Evon Hernandez and Clifford. At that v isit the plan was to: 1. Continue flonase as well as sinus rinses 2. Nasal ipratropium start 3. Plan to increase back to BID pulmicort regularly now as spring season is coming and has been bad previously Subjective: When Ms. Baxter last visited the Pulmonary Clinic on 09/29/2014 her asthma was f elt to be well controlled and primary symptoms were related to sinusitis. Since this time, Ms. Baxter has had several exacerbations most recently was treated with sys temic steroids and antibiotics. She has had one unscheduled medical care visit and there hav e been no hospitalizations. She has been treated with antibiotics and has received systemic steroids. Ms. Baxter's recent exacerbations have been characterized by increased dyspnea, i ncreased wheezing and increased phlegm production. Historically, triggers for her respirator y symptoms include respiratory infections and allergic triggers such as grass. She is taking medications as instructed and no medication side effects noted. Ms. Baxter is concern that her current asthma control is not adequate and enquires about medication change s. She notes difficulty with racing heart and palpitations with use of albuterol. She bernadette ot use long acting beta agonist due to history of episodes of SVT with use. Her asthma control test score in clinic today is 11/25. Her most recent score recorded was 23/25. Current asthma medications: Budesonide 180 mcg/actuation (2 puff twice daily) Albuterol as needed (MDI and Nebulizer) She feels that she is using her regular asthma controlling medications all the time. Tere olivares she has two exacerbations yearly. Presently completing course of antibiotics (cefuroxi me) and prednisone (20 mg daily) for 5 days. She described significant sinus symptoms with copious drainage. She is having cough and shortness of breath. She had a mild fevers for a few days but this has improved. She did not start intranasal ipratropium previously. 1. In the past 4 weeks, how much time did your asthma keep you from getting as much done at work, school, or home? 4 - A little of the time 2. During the past 4 weeks, how often have you had shortness of breath? 2 - Once a day 3. During the past 4 weeks, how often did your asthma symptoms (wheezing, coughing, shortne ss of breath, chest tightness, or pain) wake you up at night or earlier than usual in the mo rning? 1 - 4 or more nights a week 4. During the Past 4 weeks, how often have you used your rescue inhaler or nebulizer medica tion (such as albuterol)? 2 - 1 or 2 times per day 5. How would you rate your asthma control during the past 4 weeks? 2 - Poorly controlled Total Score: 11 Score ?20 - well controlled Score ? 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 Indications: ACUTE ASTHMA ATTACK albuterol 0.083% 2.5 mg /3 mL (0.083 [...] ophthalmic dropperette 1 drop 3 Times Daily cefuroxime 250 mg oral tablet Take 250 mg by mouth two times daily. DOFETILIDE 500 mcg oral capsule Take 1 [...] 1,000 mg Oral Tablet one daily lactobac b #2-zhx-nhukgraomj 300-250 million cell-mg oral capsule Take by mouth once daily. loratadine 10 mg oral tablet Take 10 mg by mouth once daily. LORAZEPAM 1 mg Oral tablet 0.5 Tabs Q HS PRN. Methylcellulose, Laxative, (CITRUCEL) Oral Powder Take by mouth. metoprolol tartrate 50 mg oral tablet Take 75mg TID. May take an additional 25mg PRN p alpitations MULTIVITAMIN OR one daily ofloxacin 0.3 % ophthalmic drops potassium chloride SR 20 mEq oral tablet,ER particles/crystals Take 1 tablet by mouth o nce daily. predniSONE 20 mg oral tablet Take 20 mg by mouth once daily. rabeprazole (ACIPHEX) 20 mg Oral Tablet, Delayed Release (E.C.) Take 20 mg by mouth wyatt ry twelve hours. Vitamin A-Vitamin C-Vit E-Min (ANTIOXIDANT FORMULA) Oral Capsule take 1 capsule by oral route once daily with food VITAMIN D ORAL 2000 IU daily No current facility-administered medications for this visit. Past Social and Family History: Social History Substance Use Topics Smoking status: Never Smoker Smokeless tobacco: Never Used Comment: nonsmoker/parents smoked Alcohol Use: No Review of systems: As above. All other systems negative on a 10-point review. Physical Exam: Patient Active Problem List Item Reading BP 128/78 Pulse 66 Temp (Src) 36.8 C (98.2 F) (Forehead) RR 18 Ht 1.664 m (5' 5.5") SpO2 100% General: No acute distress, otherwise unchanged from previous exam. SHANON: Normocephalic, PERRLA, EOMI, external ears without lesions Nares: No evidence of nasal erythema, polyps, purulence, congestion or septal deviation. Throat: No erythema, exudate, or tonsillar enlargement. Neck: No evidence of elevated jugular veins or lymphadenopathy. Lungs: Clear to auscultation bilaterally, no wheezes, rhonchi or crackles. Cardiac: Regular rate and rhythm; No murmurs, rubs or gallops. Abdomen: Normal abdominal bowel sounds; no evidence of hepatosplenomegaly. Non-tender, non- distended. Extremities: No cyanosis, clubbing, or edema. Musculoskeletal: No obvious joint deformities noted. Neurologic: Exam grossly non-focal. Skin: No evidence of rash or skin changes. Lymph nodes: No other lymphadenopathy detected. Labs: I personally reviewed relevant laboratory results which were significant for IgE 13 (01/2010 ), No history of elevated peripheral eosinophils. Imaging: I personally reviewed imaging from 10/13/2013 and which showed indeterminate pulmona ry nodules and post surgical changes. Pulmonary Function Tests: Date FVC FEV1 Ratio TLC RV ERV RV/TLC DLCO DLCO/AV 6MWT 10/22/2012 2.69 82 1.75 70 0.65 Post 2.62 79 1.91 76 0.73 +9% I personally reviewed flow-volume loops and other tests. Results are consistent with obstru ctive physiology without significant response to bronchodilator. Assessment: This is a older woman with asthma that on the basis of history (ACT worsened) and exam (wor sened) is best classified as moderate persistent with acute exacerbation. Because overall h er asthma is out of control due to intercurrent illness, I recommend some changes. Her curr ent therapy consists of short-acting inhaled beta-adrenergic agonists, inhaled corticosteroi ds and systemic corticosteroids and she would likely benefit from the addition of anticholin ergics, increased inhaled corticosteroids, longer course of systemic corticosteroids and sta rting a leukotriene inhibitors. With the addition of ipratropium hope to reduce short-actin g inhaled beta-adrenergic agonist use given adverse side-effects. I have some difficulty her sinus complaints from more typical asthma complaints and further attention will be required at follow up but it is difficult to separate during a n acute exacerbation. Further evaluation of sinus disease and other treatment options may b e helpful. I do recommend that she continue to use her antihistamine. We reviewed use of rescue vs controlling agents, oral and inhaled medications and potential side effects, critical need for compliance with treatment plan to achieve optimal results, and reviewed potential future medication changes and side effects. . Encounter Diagnoses Name Primary? Moderate persistent asthma with acute exacerbation Yes Chronic sinusitis, unspecified location Plan: - Start ipratropium (nebs and MDI for travel) to replace or minimize albuterol - Increase budesonide to 1080 mcg daily (High dose), reassess dose at one month - 10-day prednisone taper from 40 mg - Trial of montelukast - Continue intranasal Fluticasone - Asthma phenotyping with FeNo at next visit - Evaluate for allergic triggers - RTC in 6 months I spent 35 minutes with Ms. Baxter, over half of which was spent in counseling her regarding her asthma and sinus complaints. Dez Hansen MD,PhD PULMONARY & CRITICAL CARE MEDICINE AT [address] Mailcode: [id number] [place] [address] documented in this encounter Plan of Treatment Not on filedocumented as of this encounter Results SPIROMETRY BEFORE / AFTER BRONCHODIL, PULM FUNCTION LAB (10/02/2016 10:57 AM PDT) + + + + + + | Component | Value | Ref Range | Performed | Pathologist | | | | | At | Signature | + + + + + + | PULMONARY | Name: LAUREN BAXTER | | [facility] | | | INTERPRETAT | ID: [id number]: | | SPECIAL | | | ION | Height: 65.08 Inches | | DIAGNOSTICS | | | | Age: 71Tech: Pam, | | - | | | | Jorden Weight: 154.54 | | PULMONARY | | | | Lbs Sex: | | FUNCTION | | | | FemaleVisitDate: | | | | | | 10/02/2016 VisitTime: | | | | | | 10:57:02 AM Race: | | | | | | CaucasianSecondary ID:PT | | | | | | ID: DoctorID:Change | | | | | | Status:Diagnosis: | | | | | | J45.909 AsthmaDyspnea: | | | | | | On hills and | | | | | | stairsCough: | | | | | | Non-ProductiveWheeze: | | | | | | RareYrs Quit: | | | | | | Pks/Day:Yrs | | | | | | Smk: | | | | | | Tbco Prod: Never | | | | | | SmokedPost-Test | | | | | | Comments:Height and | | | | | | weight reviewed with | | | | | | patient Good patient | | | | | | effort &cooperation. | | | | | | The results of this | | | | | | test meet the ATS | | | | | | standards | | | | | | foracceptability and | | | | | | repeatability. | | | | | | | | | | | | PRE-BRONCH | | | | | | | | | | | | POST-BRONCH | | | | | | | | | | | | Loyd Prd | | | | | | %Prd Loyd | | | | | | %prd | | | | | | %Chg@SPIROMETRY$FVC | | | | | | (L) | | | | | | 2.32 3.02 | | | | | | 77 2.38 | | | | | | 79 2FEV1 | | | | | | (L) | | | | | | 1.63 2.28 | | | | | | 71 1.74 | | | | | | 76 | | | | | | 7FEV1/FVC (%) | | | | | | 70 | | | | | | 75 94 | | | | | | 73 98 | | | | | | 4FEF 25% (L/sec) | | | | | | 3.96 | | | | | | 4.78 83 | | | | | | 5.92 124 | | | | | | 49FEF 50% (L/sec) | | | | | | 1.33 | | | | | | 3.25 41 | | | | | | 1.57 48 | | | | | | 18FEF 75% (L/sec) | | | | | | 0.35 | | | | | | 0.91 39 | | | | | | 0.48 52 | | | | | | 35FEF 25-75% (L/sec) | | | | | | 0.98 | | | | | | 1.82 54 | | | | | | 1.27 70 | | | | | | 29FEF Max (L/sec) | | | | | | 5.52 | | | | | | 5.57 99 | | | | | | 6.56 118 | | | | | | 19FIVC (L) | | | | | | 2.37 | | | | | | | | | | | | 2.43 | | | | | | 2FIF 50% (L/sec) | | | | | | 3.85 | | | | | | 4.28 90 | | | | | | 4.66 109 | | | | | | 21FIF Max (L/sec) | | | | | | 4.40 | | | | | | | | | | | | 4.90 | | | | | | 11MVV (L/min) | | | | | | | | | | | | 86MEP (cmH2O) | | | | | | | | | | | | 127MIP (cmH2O) | | | | | | | | | | | | -64@LUNG | | | | | | VOLUMES$SVC (L) | | | | | | | | | | | | 2.92IC (L) | | | | | | | | | | | | 2.22ERV | | | | | | (L) | | | | | | | | | | | | 0.70FRC (N2) (L) | | | | | | | | | | | | 3.00RV (N2) (L) | | | | | | | | | | | | 2.30TLC (N2) (L) | | | | | | | | | | | | 5.22RV/TLC | | | | | | (N2) (%) | | | | | | | | | | | | 45Washout Time | | | | | | (min)FRC (pl) (L) | | | | | | | | | | | | 3.00RV (Pleth) (L) | | | | | | | | | | | | 2.30TLC (Pleth) (L) | | | | | | | | | | | | 5.22RV/TLC (Pleth) | | | | | | (%) | | | | | | 45Trapped Gas | | | | | | (L)@DIFFUSION$DLCOunc | | | | | | (ml/min/mmHg) | | | | | | 20.62DLCOadj | | | | | | (ml/min/mmHg) | | | | | | 20.62DL/VA | | | | | | (ml/min/mmHg/L) | | | | | | 3.95VA (L) | | | | | | | | | | | | | | | | | | 5.22@AIRWAYS$Raw | | | | | | (cmH2O/L/s) | | | | | | 1.86Gaw | | | | | | (L/s/cmH2O) | | | | | | | | | | | | 1.03sRaw (cmH2O*s) | | | | | | | | | | | | 4.76sGaw (1/cmH2O*s) | | | | | | | | | | | | 0.20@SINGLE | | | | | | BREATH$Closing Volume | | | | | | (L)Closing Capacity | | | | | | (L)Delta Phase IIICV/VC | | | | | | (%)CC/TLC (%)Delta N2 | | | | | | 750-1250 (%)@BLOOD | | | | | | GASES$pHPaCO2 (mmHg)PaO2 | | | | | | (mmHg) | | | | | | | | | | | | 77.6Base ExcessHgb | | | | | | (gm/dL) | | | | | | Interpretation:INTERPRET | | | | | | ATION:SPIROMETRY:Spirome | | | | | | try suggests mild | | | | | | restrictiveimpairment | | | | | | indicated by a reduced | | | | | | FVC; the FEV1/FVC is at | | | | | | the lower limitsof | | | | | | normal, raising the | | | | | | possibility that the | | | | | | reduced FVC may in part | | | | | | resultfrom mild | | | | | | obstruction and | | | | | | air-trapping. Since | | | | | | 10/22/2012, the FEV1 | | | | | | hasdecreased by 7%. The | | | | | | FVC has decreased by | | | | | | 14%. Between test | | | | | | variation canbe up to | | | | | | 10%. The change to FVC | | | | | | is therefore | | | | | | significant. | | | | | | BRONCHODILATOR:The FEV1 | | | | | | increased 6% after | | | | | | inhaled albuterol which | | | | | | doesnot indicate | | | | | | significant | | | | | | reversibility. This | | | | | | interpretation has | | | | | | beenelectronically | | | | | | signed: Declan Truong | | | | | | 10/04/2016 10:57:12 | | | | | | AM | | | | + + + + + + | FVC PRE | 2.32 | 3.02 L | [facility] | | | | | | SPECIAL | | | | | | DIAGNOSTICS | | | | | | - | | | | | | PULMONARY | | | | | | FUNCTION | | + + + + + + | FVC PRE | 76 | % | [facility] | | | (%REF) | | | SPECIAL | | | | | | DIAGNOSTICS | | | | | | - | | | | | | PULMONARY | | | | | | FUNCTION | | + + + + + + | FVC POST | 2.38 | 3.02 L | [facility] | | | | | | SPECIAL | | | | | | DIAGNOSTICS | | | | | | - | | | | | | PULMONARY | | | | | | FUNCTION | | + + + + + + | FVC POST | 78 | % | [facility] | | | (%REF) | | | SPECIAL | | | | | | DIAGNOSTICS | | | | | | - | | | | | | PULMONARY | | | | | | FUNCTION | | + + + + + + | FEV1 PRE | 1.63 | 2.28 L | [facility] | | | | | | SPECIAL | | | | | | DIAGNOSTICS | | | | | | - | | | | | | PULMONARY | | | | | | FUNCTION | | + + + + + + | FEV1 PRE | 71 | % | [facility] | | | (%REF) | | | SPECIAL | | | | | | DIAGNOSTICS | | | | | | - | | | | | | PULMONARY | | | | | | FUNCTION | | + + + + + + | FEV1 POST | 1.74 | 2.28 L | [facility] | | | | [...] + + + + | FEV1/FVC | 70 | 75 % | [facility] | | | PRE | | | SPECIAL | | | | | | DIAGNOSTICS | | | | | | - | | | | | | PULMONARY | | | | | | FUNCTION | | + + + + + + | FEV1/FVC | 93 | % | [facility] | | | PRE (%REF) | | | SPECIAL | | | | | | DIAGNOSTICS | | | | | | - | | | | | | PULMONARY | | | | | | FUNCTION | | + + + + + + | FEV1/FVC | 73 | 75 % | [facility] | | | POST | | | SPECIAL | | | | | | DIAGNOSTICS | | | | | | - | | | | | | PULMONARY | | | | | | FUNCTION | | + + + + + + | FEV1/FVC | 97 | % | [facility] | | | POST (%REF) | | | SPECIAL | | | | | | DIAGNOSTICS | | | | | | - | | | | | | PULMONARY | | | | | | FUNCTION | | + + + + + + | PEF PRE | 5.52 | 5.57 L/sec | [facility] | | | | | | SPECIAL | | | | | | DIAGNOSTICS | | | | | | - | | | | | | PULMONARY | | | | | | FUNCTION | | + + + + + + | PEF PRE | 99 | % | [facility] | | | (%REF) | | | SPECIAL | | | | | | DIAGNOSTICS | | | | | | - | | | | | | PULMONARY | | | | | | FUNCTION | | + + + + + + | PEF POST | 6.56 | 5.57 L/sec | [facility] | | | | | | SPECIAL | | | | | | DIAGNOSTICS | | | | | | - | | | | | | PULMONARY | | | | | | FUNCTION | | + + + + + + | PEF POST | 117 | % | [facility] | | | (%REF) | | | SPECIAL | | | | | | DIAGNOSTICS | | | | | | - | | | | | | PULMONARY | | | | | | FUNCTION | | + + + + + + | [id number]% | 0.98 | 1.82 L/sec | [facility] | | | PRE | | | SPECIAL | | | | | | DIAGNOSTICS | | | | | | - | | | | | | PULMONARY | | | | | | FUNCTION | | + + + + + + | [id number]% | 53 | % | [facility] | | | PRE (%REF) | | | SPECIAL | | | | | | DIAGNOSTICS | | | | | | - | | | | | | PULMONARY | | | | | | FUNCTION | | + + + + + + | [id number]% | 1.27 | 1.82 L/sec | [facility] | | | POST | | | SPECIAL | | | | | | DIAGNOSTICS | | | | | | - | | | | | | PULMONARY | | | | | | FUNCTION | | + + + + + + | MLV96-17% | 69 | % | [facility] | | | POST (%REF) | | | SPECIAL | | | | | | DIAGNOSTICS | | | | | | - | | | | | | PULMONARY | | | | | | FUNCTION | | + + + + + + | FIF50% PRE | 3.85 | 4.28 L/sec | [facility] | | | | | | SPECIAL | | | | | | DIAGNOSTICS | | | | | | - | | | | | | PULMONARY | | | | | | FUNCTION | | + + + + + + | FIF50% PRE | 89 | % | [facility] | | | (%REF) | | | SPECIAL | | | | | | DIAGNOSTICS | | | | | | - | | | | | | PULMONARY | | | | | | FUNCTION | | + + + + + + | FIF50% POST | 4.66 | 4.28 L/sec | [facility] | | | | | | SPECIAL | | | | | | DIAGNOSTICS | | | | | | - | | | | | | PULMONARY | | | | | | FUNCTION | | + + + + + + | FIF50% POST | 108 | % | [facility] | [...] [facility] | [address] | [place], [place] | | | DIAGNOSTICS - | [place] | [address] | | | PULMONARY FUNCTION | | | | + + + + + documented in this encounter Visit Diagnoses + + | Diagnosis | + + | Moderate persistent asthma with acute exacerbation - Primary | + + | Chronic sinusitis, unspecified location | + + documented in this encounter
--- OUTSIDE RECORDS SUMMARY | ~2020-05-04 | XMS | Encounter Summary ---
Demographics + + + | Address | [address] | | | [place] [address] | + + + | Home Phone [...] + | Gene Gee | ECON | [address] | | | | | [place], | | | | | [place] [address] | | + + + + + Care Team Providers + +------+ + | Care Kitchenhand Name | Role | Phone | + +------+ + PCP | Unavailable | + +------+ + Encounter Details +--------+ + + + + | Date | Type | Department | Care Team | Description | +--------+ + + + + | 08/24/ | Procedure - | | Endoscopy, Gi | EGD | | 2006 | | | | (esophagogastroduode | | | Transcribed | | | noscopy) | +--------+ + + + + Social [...] as of this encounter Procedure Notes Interface, Worm Packer In - 02/27/2006 9:30 PM PDT PROCEDURES:PANENDOSCOPY (EGD) CPT: 51206. WITH BIOPSY(S)/BRUSHING(S). CPT: 89245. PERSONNEL:THE ATTENDING PHYSICIAN WAS PRESENT DURING THE ENTIRE PROCEDURE. FELLOW: JORGE L LEONARD MD. LEVEL OF SUPERVISION: 2. ENDOSCOPIST: KORI AGUILLON MD. REFERRED BY:DOROTHY EPPS MD. ANDRY PANTOJA MD. EXAM LOCATION:EXAM PERFORMED IN ENDOSCOPY SUITE. OUTPATIENT PATIENT CONSENT:PROCEDURE, ALTERNATIVES, RISKS AND BENEFITS DISCUSSED, CONSENT OBTAINED, FROM PATIENT. CONSENT WAS OBTAINED BY THE PHYSICIAN. CONSENT TO BE CONTACTED WAS GIVEN. SYMPTOMS:REFLUX SYMPTOMS CURRENT MEDICATIONS:PATIENT IS NOT CURRENTLY TAKING COUMADIN. BETA- BLOCKERS: [place] MEDICAL/SURGICAL HISTORY:SBO , LIVER CYSTS, ECTOPIC ATRIAL TACHYCARDIA, FAILED ABLATION. REFLUX DISEASE, SJOGRENS, PRE-EXAM PHYSICAL:PERFORMED AUG 24, 2005 ENTIRE PHYSICAL EXAM WAS NORMAL. EXAM INFO:MAXIMUM DEPTH OF INSERTION DUODENUM, INTENDED DUODENUM. PATIENT POSITION: ON LEFT SIDE. DURATION OF EXAM: 15 MINUTES. VOCAL CORDS VISUALIZED. GASTRIC RETROFLEXION PERFORMED. IMAGES TAKEN. ASA CLASSIFICATION: II. TOLERANCE: EXCELLENT. SEDATION MEDS:PATIENT ASSESSED AND FOUND TO BE APPROPRIATE FOR MODERATE (CONSCIOUS) SEDATION. SEDATION WAS MANAGED BY THE ENDOSCOPIST. FENTANYL 75 MCG. GIVEN IV. MIDAZOLAM 3 MG. GIVEN IV. MONITORING:BP AND PULSE MONITORING DONE. OXIMETRY USED. INSTRUMENT(S):GIF Q160. SERIAL #[id number]. NORMAL: DISTAL ESOPHAGUS. COMMENTS: SC JUNCTION AT 41CM FROM INCISORS. NORMAL Z LINE. - MUCOSAL ABNORMALITY: DUODENAL APEX TO DUODENAL 2ND PORTION. BIOPSY/MUCOSAL ABN TAKEN. PATH # 1. COMMENT: FLATTENED FOLDS WITH OCCASIONAL SCALLOPING OF MUCOSA. BIOPSIES TAKEN X 4 FOR SPRUE. ABNORMAL EXAMINATION, SEE FINDINGS ABOVE. COMMENTS:NO COMPLICATIONS OF LONGSTANDING GERD SEEN. UNPLANNED INTERVENTION:NO UNPLANNED INTERVENTIONS WERE REQUIRED. UNPLANNED EVENTS:THERE WERE NO COMPLICATIONS. MEDICATION(S):AWAIT PATHOLOGY. COMMENTS:CONTINUE PPI FOR GERD SYMPTOMS. DISPOSITION:AFTER PROCEDURE PATIENT SENT TO SHORT STAY UNIT. AFTER RECOVERY PATIENT SENT HOME. SCHEDULING:PATH LETTER, TO JORGE L LEONARD, 0 AROUND SEP 14, 2005. PATHOLOGY:BIOPSY/MUCOSAL ABN: DUODENAL APEX. PATH # 1. REPORT ENTERED BY: JORGE L LEONARD MD documented in this encounter Plan of Treatment Not on filedocumented as of this encounter Procedures + +--------+ + + + | Procedure Name | Priori | Date/Time | Associated Diagnosis | Comments | | | ty | | | | + +--------+ + + + | EGD | | 08/24/2005 | | | + +--------+ + + + documented in this encounter Visit Diagnoses Not on filedocumented in this encounter"
--- OUTSIDE RECORDS SUMMARY | ~2020-05-04 | XMS | Encounter Summary ---
Demographics + + + | Address | [address] | | | [place] [address] | + + + | Home Phone [...] + | Gene Gee | ECON | [address] | | | | | [place], | | | | | [place] [address] | | + + + + + Care Team Providers + +------+ + | Care Invoice Coder Name | Role | Phone | + [...] + + + | Closed | | Hepatobiliary | | Non-[facility] | Ltx | | | | Surgery | | Epic Dept | Hepatobiliary | | | | | | | [facility] [address] | | | | | | [address] | | | | | | | Loop | | | | | | | Physician's | | | | | | | Pavilion, 2nd | | | | | | | floor | | | | | | | [place], [place] | | | | | | | [address] | | | | | | | Phone: | | | | | | | [phone] | | | | | | | Fax: | | | | | | | [phone] | +--------+--------+ + + + + Encounter Details +--------+---------+ + + + | Date | Type | Department | Care Team | Description | +--------+---------+ + + + | 05/03/ | Office | Liver Transplant | Katie Epps MD | Liver cyst (Primary | | 2011 | Visit | at [facility] [address] | [address] | Dx) | | | | [address] | [address] [place], | | | | | Physician's | [place] [address] | | | | | [place], [facility] floor | [phone] | | | | | [place], [place] | | | | | | [address] | | | | | | [phone] | | | +--------+---------+ + + + [...] + + + | Blood Pressure | 130/84 | 05/03/2012 9:59 AM | | | | | PDT | | + + + + + | Pulse | 61 | 05/03/2012 9:59 AM | | | | | PDT | | + + + + + | Temperature | 36.4 C (97.5 F) | 05/03/2012 9:59 AM | | | | | PDT | | + + + + + | Respiratory Rate | 14 | 05/03/2012 9:59 AM | | | | | PDT | | + + + + + | Oxygen Saturation | 99% | 05/03/2012 9:59 AM | | | | | PDT | | + + + + + | Inhaled Oxygen | - | - | | | Concentration | | | | + + + + + | Weight | 65.1 kg (143 lb 9.6 | 05/03/2012 9:59 AM | | | | oz) | PDT | | + + + + + | Height | 167.6 cm (5' 6") | 05/03/2012 9:59 AM | | | | | PDT | | + + + + + | Body Mass Index | 23.18 | 05/03/2012 9:59 AM | | | | | PDT | | + + + + + documented in this encounter Patient Instructions Patient Instructions Zak Roque MD - 05/03/2012 10:[address] to evaluate nancy er cysts. Will call following scan to discuss results and develop plan. documented in this encounter Progress Notes Katie Epps MD - 05/07/2012 10:16 AM PDTTransplant/ Hepatobiliary Staff Note I saw and evaluated the patient. I agree with the findings and the plan of care as andre moran in Dr. Roque's note. Adriana Flynn is an 66 y.o. women who is well known to our [facility] serv [facility]. She had giant symptomatic liver cysts and underwent cyst resection, drainage, fenestrat ion, marsupialization, and sclerosis Jun 2004. She has done well for 8 years save for 4 epi sodes of SBO treated nonoperatively. She developed right breast cancer and had right mastec sander and sentinel node bx. 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 She had adjuvant chemotherapy with Taxotere and Cytoxan. Over the past 2 years she has felt progressive abdominal symptoms of epigastric to right up per quadrant fullness.She feels these are progressive and are now affecting her activity. S he feels these symptoms are the same as her prior symptoms prior to her liver cyst resection . She has had one episode of nausea but no vomiting. She denies early satiety, she is actua lly gaining weight. She has not had recent problems with SBO. Given that her liver cysts may have recurred we will plan to do a triple phase CT scan toda y --- her last CT was15 months ago and shows multiple hepatic cysts, the largest is 2.6cm. H er symptoms have progressed since that time. 2. These results will be called to the patient and further plans will be made. In terms of her Breast CA. She is post treatment surgery and chemotherapy - with no eviden ce of recurrence. She will undergo a breast reconstruction next month by Dr. Lopez at [facility] Plastic Surgery. We will phone Adriana with the results of her CT scan and make a plan according to the result s. KATIE EPPS MD team facilitator Chief, Abdominal Organ Transplantation - Hepatobiliary Surgery [facility] [address] [phone] Zak Gamez MD - 1 10:17 AM PDT HEPATOBILIARY SURGERY INITIAL CONSULTATION Adriana Flynn [id number] 05/03/2012 History of Present Illness: Adriana Flynn is an 66 y.o. Female who is well known to the [facility] service. She underwent cyst resection, drainage, fenestration, marsupialization, and sclerosis. She has done well for 8 years. Unfortunately she developed breast cancer and has undergone breast conserving thera py. Over the past 2 years she has felt progressive abdominal symptoms of epigastric to righ t upper quadrant fullness. This is most noticeable with activity specifically when she bends over. In addition she reports some moderate burning sensation in this area under her ribs. She feels these are progressive and is now effecting her activity. She feels these symptom s are the same as her prior symptoms prior to her liver cyst resection. She has had one epis ode of nausea but no vomiting. She denies early satiety, she is actually gaining weight. Adriana Flynn denies a personal history of bleeding/clotting disorders or difficulties with anesthesia. Adriana Flynn is able to ambulate up 2 flight(s) of stairs without difficulty. Past Medical History: Sjogrens syndrome 1995 Fibromyalgia 1995 Mitral valve prolapse 1989 GERD (gastroesophageal reflux disease) 1995 Asthma 1999 TMJ (dislocation of temporomandibular joint) Fibrocystic disease of breast 1979 Diverticul disease small and large intestine, no perforati or abscess Skin cancer Comment: back Small bowel obstruction 07/20,10/19,02/19 Atrial tachycardia 07/20 Bursitis 2005 Plantar fascial fibromatosis 2006 Comment: plantar fascial tear Osteopenia 12/30/2007 Breast cancer 02/2007 Comment: s/p chemo with taxotere/cytoxan Shingles Past Surgical History: ectopic Comment age 20 APPENDECTOMY Comment age 25 removal adhesion HYSTERECTOMY Comment endometriosis, age 46 bladder tie up Comment age 51 colon resection, diverticulitis 11/25/02 ME REMOVAL GALLBLADDER 04/07/03 HERNIA REPAIR 07/28/2003 liver cyst ruptured 04/30/2004 liver cyst removed 06/29/2004 CARPAL TUNNEL RELEASE Comment left wrist punctum closed (eyes) 40 years old sinus procedure 1989? Comment Dr. Matt Hinojosa HEMORRHOIDECTOMY 1991 left leg veins 1992 bunions/hammer toes/neuromas 1998,[address] Raymond Rose heart ablation 12/16/2004,09/21/[address] Fuentes, [facility] MASTECTOMY BIOPSY / EXCISION / DISSECTION AXILLARY NODE Medications: Current Outpatient Prescriptions Medication anastrozole (ARIMIDEX) 1 mg Oral Tablet atenolol 50 mg Oral Tablet budesonide (PULMICORT FLEXHALER) 180 mcg/actuation Inhalation Aerosol Powdr Breath Acti vated calcium citrate-vitamin D (CITRACAL + D) 315-200 mg-unit Oral Tablet Diclofenac Sodium (VOLTAREN) 1 % Topical Gel DOFETILIDE 500 mcg Oral Capsule ezetimibe (ZETIA) 10 mg Oral Tablet fluticasone (FLONASE) 50 mcg/actuation Nasal Olla, Suspension Glucosamine 1,000 mg Oral Tablet Methylcellulose, Laxative, (CITRUCEL) Oral Powder MULTIVITAMIN OR potassium chloride SR 20 mEq Oral Tab Sust.Rel. Particle/Crystal rabeprazole (ACIPHEX) 20 mg Oral Tablet, Delayed Release (E.C.) tramadol (ULTRAM) 50 mg Oral Tablet Vitamin A-Vitamin C-Vit E-Min (ANTIOXIDANT FORMULA) Oral Capsule VITAMIN D ORAL Allergies: Allergies Allergen Reactions Sulfa(Sulfonamide Antibiotics) Swelling-Facial Albuterol [...] unknown Triamterene-Hydrochlorothiazid BREAST LUMPS Tape Adherent Rash Social History: History Substance Use Topics Smoking status: Never Smoker Smokeless tobacco: Never Used Comment: nonsmoker/parents smoked Alcohol Use: No Family History Family History Problem Relation Diabetes Heart Disease Additional Family History Mother osteoporosis/hip fracture Review of Systems: Complete 10 point review of systems was performed and negative except for as mentioned in t he history of present illness. Examination: BP 130/84 | Pulse 61 | Temp (Src) 36.4 C (97.5 F) (Oral) | RR 14 | Ht 1.676 m (5' 6") | Wt 65.137 kg (143 lb 9.6 oz) | SpO2 99% | BMI 23.18 kg/(m^2) General: No acute distress. Appears stated age. Eyes: Sclerae anicteric. ENMT: No oral lesions, mucous membranes moist. Neck: Supple, no cervical, supraclavicular lymphadenopathy. Cardiac: Regular rate and rhythm. No lower extremity edema. Chest: Clear to auscultation bilaterally. Lymph nodes: No cervical, supraclavicular, or inguinal lymphadenopathy. Abdomen: Scars well healed, no organomegaly. Her liver edge is palpable with inhalation but no discomfort with this. She does have some discomfort on her costal margin. No hepatos plenomegaly, no fluid wave. No other masses, hernias, or flank tenderness. Skin: Warm, dry, no rashes or lesions. No petechia. Neuro: Alert and oriented to person, place, and date. Cranial nerves intact. Gait kendal l. Psych: Alert and oriented and appropriate in all spheres. Investigations: Lab 01/26/2012 AST 20, ALT 24 AlkPhos 67, T bili 0.8 Albumin 3.8 Creat 0.75 WBC 6.9, Hgb 14.8, Plt 152 Imaging: CT chest 11/23/2010: Her entire liver was visualized and she has multiple small hepatic cyst s. The largest cyst is 2.6 cm. Medical Decision Making I have independently reviewed the electronic medical record as well as performed the histor y and physical exam. I have reviewed pertinent labs. I have personally reviewed and interpreted CT images as described in the investigations. Assessment: Adriana Flynn is an 66 y.o. Female with known polycystic liver disease who is s tatus post resection with possible recurrence of symptomatic cystic lesions. Plan: 1. Obtain imaging. Last CT was performed 15 months ago and her symptoms have progressed sin ce that time. A CT of the abdomen with contrast will be obtained to evaluate the cysts 2. These results will be called to the patient and further plans will be made. 3. Breast CA. She is post treatment with no evidence of recurrence. She will undergo a jillian st reconstruction next month. Adriana Flynn participated in the decision making process and agreed with the plan of care. All questions were sought and answered. Dr. Epps participated in all aspects of care and agreed with the assessment and plan. Orders Placed This Encounter COMPLETE METABOLIC SET (NA,K,CL,CO2,BUN,CREAT,GLUC,CA,AST,ALT,BILI TOTAL,ALK PHOS,ALB,P ROT TOTAL) Standing Status: Future Number of Occurrences: Standing Expiration Date: 06/03/2013 MAGNESIUM, PLASMA Standing Status: Future Number of Occurrences: Standing Expiration Date: 06/03/2013 PHOSPHORUS, PLASMA Standing Status: Future Number of Occurrences: Standing Expiration Date: 06/03/2013 CBC, WITH DIFFERENTIAL Standing Status: Future Number of Occurrences: Standing Expiration Date: 06/03/2013 INR Standing Status: Future Number of Occurrences: Standing Expiration Date: 06/03/2013 APTT (ACT. PART. THROMBO TIME) Standing Status: Future Number of Occurrences: Standing Expiration Date: 06/03/2013 Zak Roque MD Surgical Oncology Fellow [address] [id number] [place], [place] [address] Pager [phone] documented in this en counter Plan of Treatment Not on filedocumented as of this encounter Visit Diagnoses + + | Diagnosis | + + | Liver cyst - Primary Other specified disorders of liver | + + documented in this encounter
--- OUTSIDE RECORDS SUMMARY | ~2020-05-04 | XMS | Encounter Summary ---
Demographics + + + | Address | [address] | | | [place] [address] | + + + | Home Phone [...] + | Gene Sahil | ECON | [address] | | | | | [place], | | | | | [place] [address] | | + + + + + Care Team Providers + +------+ + | Care Proposal Editor Name | Role | Phone | + +------+ + PCP | Unavailable | + +------+ + Encounter Details +--------+ + + + + | Date | Type | Department | Care Team | Description | +--------+ + + + + | 12/01/ | Office | | Note, Outpatient | Progress Note | | 2006 | Visit-Trans | | Clinic | | [...] as of this encounter Progress Notes Interface, Safety Specialist In - 01/11/2006 2:03 AM PDT [id number] SAHIL Holman [id number] Clinic Date: 12/01/2005 Clinic: Hepatobiliary Clinic Diagnoses: 1. History of multiple large and symptomatic liver cysts. 1.1. Status post exploratory laparotomy with excision and resection of multiple liver cysts, alcohol ablation of the cysts, and marsupialization on June 29, 2004. 1.2. Final pathology of a total of 10 cysts was consistent with peribiliary benign cyst. 1.3. The patient had a history of rupture and bleeding into the large cyst which was 9 cm x 12 cm and had been rapidly growing. 1.4. The patient had an initial uneventful postoperative course prior to re-presenting with partial small-bowel obstruction in July 16, 2004. 1.5. The patient returned to the clinic with recurrent episode of partial small-bowel obstruction resolving with medical management including nasogastric tube and p.o. over a period of 4 to 8 days although the patient had a history of exploratory laparotomy and lysis of adhesion in 2002 prior to her hepatobiliary resection. For today, she is moving her bowel and complaining of intermittent symptoms of bloating and constipation, but she is having bowel movement every other day. 2. History of partial small-bowel obstruction, first episode was in 2002 requiring lysis of adhesion. The patient is known to have several, about a total of 6, abdominal surgeries including ectopic , appendectomy, bladder suspension, laparoscopic cholecystectomy, and hernia repair with mesh. She had developed abdominal pain, nausea, vomiting, with a total of 3 episode of bowel obstruction. The first episode was in 2002 and was treated with exploratory laparotomy and lysis of adhesion. Her second episode was in July 16, 2004, at [facility] and was treated medically with bowel rest and nasogastric tube, and she stayed in the hospital for 8 days and then things resolved. Third episode was just recently in November 03, 2005, and was treated medically also at [facility]. She stayed in the hospital for a total of 4 days, nothing by mouth, and nasogastric tube decompression. Things resolved. At that point, plain films and CT scan confirmed an air-fluid level with dilated loops of small bowel up to mid duodenum and terminal ileum, then decompressed terminal ileum area. The patient's bowel obstruction resolved with no surgical intervention. 3. History of supraventricular tachycardia. 3.1. The patient developed ectopic atrial tachycardia postoperatively in June 2004. She was placed on antiarrhythmic medication and discharged home on amiodarone and digoxin. She was followed by Dr. Fuentes at [facility], the web page developer, who stopped her digoxin and amiodarone and put her back on atenolol. 3.2. The patient is status post heart ablation in December 16, 2004, by Dr. Gary Fuentes M.D., at [facility] for persistent atrial tachycardia. 3.3. The patient continued to be symptomatic from her tachycardia, and she had a second a second heart ablation in September 21, 2005, at [facility]. Right now, she is on Rythmol and controlling her heart rhythm very well. She was treated with flecainide acetate but that was causing intestinal distress and discomfort and was stopped. She is right now on Rythmol, and her hearth rhythm is controlled although the Rythmol, as a side effect, can cause constipation and nausea. 4. The patient is status post dobutamine stress echo done in September 2004. 5. Sjogren disease. 6. Mitral valve prolapse. 7. Asthma. 8. Gastroesophageal reflux disease. 9. Carpal tunnel syndrome. 10. Fibrocystic breast disease. 11. Esophageal dysmotility syndrome. 12. Temporomandibular joint disease. 13. The patient is status post ectopic that ruptured at age 20, appendectomy at age 25, lysis of adhesion for episode of bowel obstruction in 2002, bladder suspension at age 51, laparoscopic cholecystectomy in 2002, and open ventral incisional hernia repair with mesh in 2003. She also underwent a resection of multiple liver cysts and alcohol ablation of cysts and marsupialization in June 29, 2004. 14. Status post left hemicolectomy for diverticulitis, history of hysterectomy at age 46 for endometriosis. Medications: 1. The patient is on Estrace 0.75 mg topical patch. 2. Protonix 40 mg p.o. once a day. 3. Atenolol 25 mg once a day. 4. Combivent and Pulmicort for asthma. 5. Flonase for asthma, inhalers. 6. Rythmol. 7. Metamucil for constipation, the patient taking it almost regularly. Allergies: CIPRO CAUSING RASH, SULFA DRUG CAUSING SWOLLEN FACE, FLECAINIDE ACETATE CAUSING INTESTINAL DISTRESS. Subjective: The patient is a 60-year-old lady with several abdominal surgeries including ectopic ; appendectomy; lysis of adhesion for bowel obstruction in 2002; bladder suspension; laparoscopic cholecystectomy; open hernia repair with mesh, ventral incisional; left hemicolectomy; hysterectomy; marsupialization; and alcohol ablation of multiple liver cysts in June 2004. Also, the patient with history of bowel obstruction with 3 episode. The first episode of bowel obstruction was in 2002 required surgical intervention. The last episode was in October 2005. The second episode resolved with medical management. By reviewing her films and history, it is most likely secondary to adhesions. The patient was referred to Dr. Callahan at [facility] for evaluation of her liver cyst and symptoms of bowel obstruction. For today, she is complaining of pain in the lower abdomen, right more than the left. The pain is intermittent, mild, requiring no pain medication. She also feels bloated intermittently when she is having the pain with no bowel movement. Her bowel movements these days are about every other day and requiring Metamucil help to have a bowel movement. She is tolerating diet, especially, yoghurt and soft diet very well with no nausea or vomiting. She is not tolerating fibers very well, and she is staying away from that because they cause abdominal cramp and worsening distention. She denies any fevers or chills. She denies any heart burn or blood in her stool. She was recently guaiac negative. Her last colonoscopy in 2002 as the patient remembers and it was with no lesions, but there was an area of narrowing in her colon. Physical Examination: Vital Signs: The patient is 5 feet long and 6 inches. She is afebrile. General: In no apparent distress, well nourished. HEENT: Her oral mucosa is moist, sclerae with no jaundice and anicteric. Lungs: She is clear to auscultation bilaterally. Heart: Regular rate and rhythm. Abdomen: Soft, very mildly distended, and mild tenderness in the lower abdomen. There is no rebound or guarding or any sign of peritonitis. There is no organomegaly. Rectal: Digital rectal exam with normal sphincter and no masses. There is hard stool in her rectum. Extremities: No edema. Warm extremities. Laboratory Data: We have recent labs sent to our clinic from outpatient and those were drawn on November 21, 2005, and her white count is 6.9, hematocrit is 43.1, and platelets 225. AST 23, ALT 18, alkaline phosphatase 63, GGT 11, total bilirubin 0.7, direct bilirubin 0.2, indirect bilirubin 0.5, protein 6.2, and albumin 3.5. Her electrolytes all within normal limits. Her creatinine is 0.9 and BUN is 8. From her last time, she was in [facility], she had an abdominal series on November 03, 2005, which was read as partial small-bowel obstruction with air-fluid level and colonic stool and air present. She had a CT scan from October 2005 which is also read as partial small-bowel obstruction, most likely adhesion. There was dilated loops with air-fluid level, and there was stool in the colon with small amount of fluid in the pelvis. Assessment and Plan: 1. A 60-year-old female with history of bowel obstruction, partial and history of several, about 7, abdominal surgeries. Last surgery was resection of multiple liver cysts and alcohol ablation and marsupialization in June 2005. The patient had 2 episodes of bowel obstruction after that. By reviewing the patient's history, physical, and lab work, she is well nourished and with normal albumin and protein. She is tolerating diet, and she is with minimal pain and intermittent symptoms of mostly constipation but no nausea and no vomiting. She is having regular bowel movements every other day with the use of Metamucil. 2. In regard of her history of multiple liver cysts, there is small cysts in her liver, about 6 of them, but they are very small, and she is asymptomatic from those benign cysts, and we are only going to followup on those. The patient is advised to stay away from high-fiber diet and continue taking easily digested and partially digested or well digested diet. Deborah Goode M.D. Katie Callahan M.D. Wallpaper Consultant Division of Liver and Pancreas Transplantation MS / HS [id number] / [id number] / [id number] / Electronically signed by Katie Callahan 01-10-2006 03:37:51 PM documented i n this encounter Plan of Treatment Not on filedocumented as of this encounter Visit Diagnoses Not on filedocumented in this encounter"
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
--- OUTSIDE RECORDS SUMMARY | ~2020-05-04 | XMS | Encounter Summary ---
Demographics + + + | Address | [address] | | | [place] [address] | + + + | Home Phone | | + + + | Preferred Language | Unknown | + + + | Marital Status | | + + + | Cheondoism Affiliation | 1013 | + + + | Race | White | + + + | Ethnic Group | Not or | + + + Author + + + | Author | [facility] | | | and [place] | + + + | Organization | [facility] | | | and [...] Providers + +------+ + | Care Data Control Clerk Name | Role | Phone | + +------+ + | Alec Hill MD | PCP | | + +------+ + Reason for Visit + + + | Reason | Comments | + + + | Follow-up | 6 mo follow up | + + + Encounter Details +--------+---------+ + + + | Date | Type | Department | Care Team | Description | +--------+---------+ + + + | 04/08/ | Office | [facility] | Martin Kelley, | Atrial tachycardia | | 2019 | Visit | CARDIOLOGY [place] | [address] | ([facility]) (Primary Dx); | | | | [address] | [facility], | Paroxysmal atrial | | | | [place], [place] | [place] [address] | fibrillation ([facility]); | | | | [address] | [phone] | Congestive heart | | | | [phone] | | failure of unknown | | | | | | etiology ([facility]); | | | | | | Moderate tricuspid | | | | | | regurgitation by | | | | | | prior echocardiogram | +--------+---------+ + + + Social History [...] + + + | Blood Pressure | 130/70 | 04/08/2019 9:47 AM | | | | | PDT | | + + + + + | Pulse | 58 | 04/08/2019 9:47 AM | | | | | PDT | | + + + + + | Temperature | - | - | | + + + + + | Respiratory Rate | 16 | 04/08/2019 9:47 AM | | | | | PDT | | + + + + + | Oxygen Saturation | 99% | 04/08/2019 9:47 AM | | | | | PDT | | + + + + + | Inhaled Oxygen | - | - | | | Concentration | | | | + + + + + | Weight | 62.7 kg (138 lb 3.2 | 04/08/2019 9:47 AM | | | | oz) | PDT | | + + + + + | Height | 166.4 cm (5' 5.5") | 04/08/2019 9:47 AM | | | | | PDT | | + + + + + | Body Mass Index | 22.65 | 04/08/2019 9:47 AM | | | | | PDT | | + + + + + documented in this encounter Patient Instructions Patient Instructions Martin Kelley MD - 04/08/2019 10:00 AM PDTContinue current therapy . Continue your exercise program. Follow-up in 6 months (sooner if need be)Electronically signed by Martin Kelley MD at 10:31 AM PDT documented in this encounter Progress Notes Martin Kelley MD - 04/08/2019 10:00 AM PDTFormatting of this note might be different fr om the original. ELECTROPHYSIOLOGY OUTPATIENT FOLLOW UP PATIENT NAME: Adriana Flynn : 1945: AGE: 73 y.o. (home) : PRIMARY CARE: Alec Hill MD Requesting Physician: Alec Hill Plan EP PROBLEMS ADDRESSED AT TODAY'S [...] twice a day for rate control. Continue rivaroxaban . 04/02/18: She is doing well, with no [...] A recent creatinine was 0.64 and BUN17. 04/08/2019: Doing well on current therapy. Continue it. Check labs. Congestive heart failure of unknown etiology Overview [...] will be repeated at the next visit. Moderate tricuspid regurgitation by prior echocardiogram Overview Moderate MR and TR on echo. Continue losartan. Repeat an echo next visit (2 years after the last visit) Paroxysmal atrial fibrillation Overview Her chads 2 vascular score is 3.Preserved LV systolic function EF 55% on most recent ech o with moderately dilated LA. moderate MR and TR. On apixaban, with no signs or symptoms of bleeding. Continue Bisoprolol 5 mg twice a day for rate control, given underlying asthma. She can alexandru e 5-10 mg if needed for fast heart rates (pill in a pocket approach) . Continue Dofetilide 2 50mcg BID. Her chads 2 vascular score is 3. 10/01/18: Doing well on current therapy. Has occasional "arrhythmia" lasting for a few seconds but no thing sustained. Continue current therapy. Increase potassium to 20 meq per day, since a rec ent potassium was 3.9 (July 2018) 04/08/2019: There have been no episodes of atrial fibrillation. Continue current therapy. COMPREHENSIVE PROBLEM LIST Patient Active Problem List Diagnosis Date Noted Congestive heart failure of unknown etiology (HCC) 07/29/2017 Priority: High Note Last Updated: 04/08/2019 She had normal LV systolic function and [...] will be repeated at the next visit. Chronic anticoagulation 07/29/2017 Priority: High Age-related osteoporosis without current pathological fracture 08/07/2018 Note Last Updated: 04/08/2019 Reclast [id number]; September 2018 DXA 06/13/17: L -1.4 H [...] Last Updated: 02/27/2019 Diagnosed in 1999 at [facility]. On albuterol and ipratropium bromide nebulizer and [...] Atrial tachycardia (HCC) 07/31/2017 Note Last Updated: 04/08/2019 Hx of s/p successful ablation of stacey [...] twice a day for rate control. Continue rivaroxaban . 04/02/18: She is doing well, with no [...] A recent creatinine was 0.64 and BUN17. 04/08/2019: Doing well on current therapy. Continue it. Check labs. Paroxysmal atrial fibrillation (HCC) 07/31/2017 Note Last Updated: 04/08/2019 Her chads 2 vascular score is 3.Preserved LV systolic function EF 55% on most recent ech o with moderately dilated LA. moderate MR and TR. On apixaban, with no signs or symptoms of bleeding. Continue Bisoprolol 5 mg twice a day for rate control, given underlying asthma. She can alexandru e 5-10 mg if needed for fast heart rates (pill in a pocket approach) . Continue Dofetilide 2 50mcg BID. Her chads 2 vascular score is 3. 10/01/18: Doing well on current therapy. Has occasional "arrhythmia" lasting for a few seconds but no thing sustained. Continue current therapy. Increase potassium to 20 meq per day, since a rec ent potassium was 3.9 (July 2018) 04/08/2019: There have been no episodes of atrial fibrillation. Continue current therapy. Mitral valve prolapse 07/31/2017 Note Last Updated: [...] 02/03/2014 Breast cancer, right (HCC) 05/21/2008 Recommendations: Continue current therapy. Continue your exercise program. Follow-up in 6 months (sooner if need be) Take Maalox plus or Mylanta 2 as needed for the chest discomfort. Probable esophageal spas m HISTORY OF PRESENT ILLNESS This patient presents 04/08/2019 for a follow-up visit, feeling well from a cardiac perspect wilbert. She had "bad chest pain" for the past couple of days, relieved by belching, in the ear ly afternoons. She described it was a positive Beck sign. This is not exertional in natu re and lasted for a couple of minutes before resolving. She has been doing lots of rosalia (applesauce and tomatoes). No symptoms of typical angina pectoris reported. She has occasi onal "flutters" up to 2 to 3/day lasting for less than 5 seconds for the past week. None pr ior to that. She walks 30 minutes at a time 3 to 4 days/week and enjoys stretching and doin g weight machines twice per week (sometimes up to 4 times per week). No heart failure sympt oms dizziness or syncope reported. Allergies Allergen Reactions Cardizem [Diltiazem] Hives Localized [...] (two) times bay ly., Disp: , Rfl: ipratropium (ATROVENT HFA) 17 mcg/puff inhaler, Inhale [...] as needed., Disp: , Rfl: potassium chloride (KLOR-CON) 20 MEQ packet, Take [...] significance. DATA Laboratory values which I reviewed 04/08/2019 are as follows: Lab Results Component Value Date WBC 9.08 08/02/2017 RBC 4.08 08/02/2017 HGB 12.6 08/02/2017 Lab Results Component Value Date NA 145 04/02/2018 K 4.1 04/02/2018 CL 109 04/02/2018 CO2 27 04/02/2018 ANIONGAP 13 04/02/2018 GLUF 69 04/02/2018 BUN 14 04/02/2018 BCR 18 04/02/2018 EGFR >60 04/02/2018 Lab Results Component Value Date GLUF 69 04/02/2018 ROS I have personally reviewed and agree with ROS listed by AIDE simms. All other systems are reviewed and negative. PHYSICAL EXAM BP 130/70 | Pulse 58 | Resp 16 | Ht 1.664 m (5' 5.5") | Wt 62.7 kg (138 lb 3.2 oz) | S pO2 99% | ? No | BMI 22.65 kg/m Physical Exam Constitutional: She is oriented to person, place, and time. She appears well-developed and well-nourished. No distress. HENT: Head: Normocephalic and atraumatic. Eyes: Pupils are equal, round, and reactive to light. Neck: No JVD present. No thyromegaly present. Cardiovascular: Normal rate, regular rhythm and intact distal pulses. Exam reveals no brannon p and no friction rub. Murmur heard. Soft systolic murmur at the apex. Pulmonary/Chest: Effort normal and breath sounds normal. No respiratory distress. She has n o wheezes. She has no rales. Abdominal: Soft. Bowel sounds are normal. There is no tenderness. There is no guarding. Musculoskeletal: She exhibits no edema or tenderness. Neurological: She is alert and oriented to person, place, and time. Skin: Skin is warm and dry. She is not diaphoretic. Psychiatric: She has a normal mood and affect. Her behavior is normal. Judgment and thought content normal. Vitals reviewed. Martin Kelley MD 04/08/2019 10:41 *This report has been prepared using a voice recognition system. The report was reviewed f or accuracy, however, sound-alike word errors, addition and/or deletions may occur. If there is any question about this report please contact me. Patient Instructions Continue current therapy. Continue your exercise program. Follow-up in 6 months (sooner if need be) Julia Miller, Gear Grinder - 04/08/2019 10:00 AM Romelia NOBLE Note- Electrophysiology Patient ID: Adriana Flynn is a 73 y.o. female. Review of Systems Constitutional: Negative for chills, fever, malaise/fatigue and weight loss. HENT: Negative for congestion and sore throat. Respiratory: Positive for cough. Cardiovascular: Positive for palpitations. Negative for chest pain and leg swelling. Gastrointestinal: Positive for abdominal pain. Negative for blood in stool. Genitourinary: Negative for hematuria. Musculoskeletal: Positive for myalgias. Neurological: Negative for dizziness. Have you ever had a sleep study? No Do you use oxygen? NO Do you use CPAP? NO Do you snore? (NO) Do you fall asleep for no reason during the day? NO Do you stop breathing at night? (NO) Do you feel excessively tired during the day? (NO) [facility] umented in this encounter Plan of Treatment +--------+ + + + + | Date | Type | Specialty | Care Team | Description | +--------+ + + + + | 05/19/ | Office | Orthopedic Surgery | Tee Choi, | | | 2019 | Visit | | [address] | | | | | | [place] [address] | | | | | | [phone] | | | | | | | | +--------+ + + + + | 05/19/ | Appointment | Cardiology | Martin Kelley, | | | 2019 | | | MD [address] | | | | | | [place] | | | | | | [place] [address] | | | | | | [phone] | | | | | | | | +--------+ + + + + | 11/26/ | Office | Cardiology | Martin Kelley, | | | 2020 | Visit | | MD [address] | | | | | | [place] | | | | | | [place] [address] | | | | | | [phone] | | | | | | | | +--------+ + + + + + +------+--------+ + + | Name | Type | Priori | Associated Diagnoses | Order Schedule | | | | ty | | | + +------+--------+ + + | Basic Metabolic | Lab | Routin | Atrial tachycardia | 1 Occurrences | | Panel | | e | (HCC) | starting 04/08/2019 | | | | | | until 04/08/2020 | + +------+--------+ + + | Magnesium | Lab | Routin | Atrial tachycardia | 1 Occurrences | | | | e | (HCC) | starting 04/08/2019 | | | | | | until 04/08/2020 | + +------+--------+ + + | Basic Metabolic | Lab | Routin | Atrial tachycardia | 1 Occurrences | | Panel | | e | (HCC) | starting 04/08/2019 | | | | | | until 04/08/2020 | + +------+--------+ + + | Magnesium | Lab | Routin | Atrial tachycardia | 1 Occurrences | | | | e | (HCC) | starting 04/08/2019 | | | | | | until 04/08/2020 | + +------+--------+ + + documented as of this encounter Visit Diagnoses + + | Diagnosis | + + | Atrial tachycardia (HCC) - Primary Other specified cardiac dysrhythmias | + + | Paroxysmal atrial fibrillation (HCC) Atrial fibrillation | + + | Congestive heart failure of unknown etiology (HCC) | + + | Moderate tricuspid regurgitation by prior echocardiogram Diseases of tricuspid valve | + + documented in this encounter
--- OUTSIDE RECORDS SUMMARY | ~2020-05-04 | XMS | Encounter Summary ---
Demographics + + + | Address | [address] | | | [place] [address] | + + + | Home Phone [...] + | Gene Gee | ECON | [address] | | | | | [place], | | | | | [place] [address] | | + + + + + Care Team Providers + +------+ + | Care Ham Passer Name | Role | Phone | + +------+ + | Antony Ribera MD | PCP | | + +------+ + Encounter Details +--------+ + + + + | Date | Type | Department | Care Team | Description | +--------+ + + + + | 12/17/ | MyChart | [facility] | Stevan Velazquez, | You can't go!! | | 2011 | Encounter | Clinics at S | [address] | | | | | [address] | [place], [place] | | | | | [address] [place] [facility] | [address] | | | | | [facility], | [phone] | | | | | [address] | | | | | | [place], [place] | | | | | | [address] | | | | | | [phone] | | | +--------+ + + + [...] Telephone Encounter - Rosalinda Palacios RN - 12/18/2011 1:30 PM PDTReceived [facility]. Called to discuss. Referred patient to letter received to look at providers available at [facility] she can transfer care to and suggested she speak with her surgeon, Dr. Zhang maldonado for suggestions as well. Let patient know that she can look at information regarding jovani villalba available on [facility] website as well. Patient in agreement with this plan. Also spoke to patient regarding body aches and pains. Patient states that she is doing oka y, taking Acetaminophen 500 mg every night and that helps. Patient has fibromyalgia and art hritis and her "minor aches" are managed with over the counter analgesics. No further quest ions at this time. docu mented in this encounter Plan of Treatment Not on filedocumented as of this encounter Visit Diagnoses Not on filedocumented in this encounter
--- OUTSIDE RECORDS SUMMARY | ~2020-05-04 | XMS | Encounter Summary ---
Demographics + + + | Address | [address] | | | [place] [address] | + + + | Home Phone | | + + + | Preferred Language | Unknown | + + + | Marital Status | | + + + | Zoroastrianism Affiliation | 1013 | + + + [...] Team Providers + +------+ + | Care Vineyard Worker Name | Role | Phone | + +------+ + PCP | Unavailable | + +------+ + Encounter Details +--------+ + + + + | Date | Type | Department | Care Team | Description | +--------+ + + + + | 09/14/ | [facility] | [facility] | Ki Snell | | | 2000 | Encounter | MED CTR GENERIC OP | MD [address] | | | | | CONV DEPT [address] | [address] | | | | | [place], | [place] [address] | | | | | [place] [address] | [phone] | | | | | [phone] | | | +--------+ + + + [...] | | | | | [place] [address] | | | | | | [phone] | | | | | | | | +--------+ + + + + | 05/19/ | Appointment | Cardiology | Martin Kelley, | | | 2019 | | | MD [address] | | | | | | [place], | | | | | | [place] [address] | | | | | | [phone] | | | | | | | | +--------+ + + + + | 11/26/ | Office | Cardiology | Martin Kelley, | | | 2020 | Visit | | MD [address] | | | | | | [place], | | | | | | [place] [address] | | | | | | [phone] | | | | | | | | +--------+ + + + + documented as of this encounter Visit Diagnoses Not on filedocumented in this encounter"
--- OUTSIDE RECORDS SUMMARY | ~2020-05-04 | XMS | Encounter Summary ---
Demographics + + + | Address | [address] | | | [place] [address] | + + + | Home Phone [...] + | Gene Gee | ECON | [address] | | | | | [place], | | | | | [place] [address] | | + + + + + Care Team Providers + +------+ + | Care Boiler Assistant Operator Name | Role | Phone | + +------+ + | Antony Ribera MD | PCP | | + +------+ + Encounter Details +--------+ + + + + | Date | Type | Department | Care Team | Description | +--------+ + + + + | 04/23/ | Head Trimmer | Surgical Oncology | [facility], | Breast cancer, right | | 2013 | | at [facility] [address] | [address] | (HCC) (Primary Dx) | | | | [facility] | [place], [place] | | | | | Health and Healing, | [address] | | | | | [address] | [phone] | | | | | [place], [place] | | | | | | [address] | | | | | | [phone] | | | +--------+ + + + [...] + + | Breast cancer, right (HCC) - Primary | + + documented in this encounter"
--- OUTSIDE RECORDS SUMMARY | ~2020-05-04 | XMS | Encounter Summary ---
Demographics + + + | Address | [address] | | | [place] [address] | + + + | Home Phone [...] + | Gene Gee | ECON | [address] | | | | | [place], | | | | | [place] [address] | | + + + + + Care Team Providers + +------+ + | Care Geology Faculty Member Name | Role | Phone | + +------+ + | Antony Ribera MD | PCP | | + +------+ + Reason for Visit + +--------+ + | Reason | Onset | Comments | | | Date | | + +--------+ + | Refill Request | 05/27/ | | | | 2012 | | + +--------+ + Encounter Details +--------+--------+ + + + | Date | Type | Department | Care Team | Description | +--------+--------+ + + + | 05/27/ | Refill | Cardiology | Gary Fuentes MD | Refill Request | | 2012 | | Arrhythmia at [facility] | [address] | | | | | [address] | [address] [place], | | | | | [facility] | [place] [address] | | | | | and Healing, | [phone] | | | | | [facility] | | | | | | Floor [place], [place] | | | | | | [address] | | | | | | [phone] | | | +--------+--------+ + + + [...]
--- OUTSIDE RECORDS SUMMARY | ~2020-05-04 | XMS | Encounter Summary ---
Demographics + + + | Address | [address] | | | [place] [address] | + + + | Home Phone | | + + + | Preferred Language | Unknown | + + + | Marital Status | | + + + | Yazidi Affiliation | 1013 | + + + [...] Team Providers + +------+ + | Care Fios Line Installer Name | Role | Phone | + +------+ + PCP | Unavailable | + +------+ + Encounter Details +--------+ + + + + | Date | Type | Department | Care Team | Description | +--------+ + + + + | 08/04/ | Hospital | [facility] | Dilip Frias MD | | | 1996 | Encounter | MED CTR GENERIC OP | [address] | | | | | CONV DEPT [address] | [address] [place] [address] | | | | | [place], | [address] | | | | | [place] [address] | | | | | | [phone] | | | +--------+ + + + [...] | | | | | [place] [address] | | | | | | [phone] | | | | | | | | +--------+ + + + + | 05/19/ | Appointment | Cardiology | Martin Kelley, | | 2019 | | | MD [address] | | | | | | [place], | | | | | | [place] [address] | | | | | | [phone] | | | | | | | | +--------+ + + + + | 11/26/ | Office | Cardiology | Martin Kelley, | | | 2020 | Visit | | MD [address] | | | | | | [place], | | | | | | [place] [address] | | | | | | [phone] | | | | | | | | +--------+ + + + + documented as of this encounter Visit Diagnoses Not on filedocumented in this encounter"
--- OUTSIDE RECORDS SUMMARY | ~2020-05-04 | XMS | Encounter Summary ---
Demographics + + + | Address | [address] | | | [place] [address] | + + + | Home Phone | | + + + | Preferred Language | Unknown | + + + | Marital Status | | + + + | Sabianist Affiliation | CHR | + + + [...] + | Gene Gee | ECON | [address] | | | | | [place], | | | | | [place] [address] | | + + + + + Care Team Providers + +------+ + | Care Ocean Clam Boat Captain Name | Role | Phone | + +------+ + PCP | Unavailable | + +------+ + Encounter Details +--------+ + + + + | Date | Type | Department | Care Team | Description | +--------+ + + + + | 07/06/ | Results | | Renu Cosby | | | 2003 | Only | | [address] | | | | | | [address] | | | | | | [place] [address] | | +--------+ + + + + [...] + | DIGOXIN, PLASMA | Routin | 07/06/2004 | | Results for this | | | e | 6:50 AM | | procedure are in the | | | | PST | | results section. | + +--------+ + + + documented in this encounter Results DIGOXIN (07/06/2004 6:50 AM PST) + + + + + + | Component | Value | Ref Range | Performed | Pathologist | | | | | At | Signature | + + + + + + | DIGOXIN | 0.6 (L)Comment: New | 0.8 - 2.0 ng/mL | [...] + + + + + | [facility] | [address] | [place] [address] | | | PATHOLOGY | JACKY GARNETT | | | + + + + + | [facility] | [address] | [place] [address] | | | PATHOLOGY | JACKY GARNETT | | | + + + + + documented in this encounter Visit Diagnoses Not on filedocumented in this encounter"
--- OUTSIDE RECORDS SUMMARY | ~2020-05-04 | XMS | Encounter Summary ---
Demographics + + + | Address | [address] | | | [place] [address] | + + + | Home Phone [...] + | Gene Gee | ECON | [address] | | | | | [place], | | | | | [place] [address] | | + + + + + Care Team Providers + +------+ + | Care Ic Designer Gate Arrays Name | Role | Phone | + +------+ + | Antony Ribera MD | PCP | | + +------+ + Encounter Details +--------+ + + + + | Date | Type | Department | Care Team | Description | +--------+ + + + + | 07/26/ | Office | [facility] | Nurse5, [address] | | | 2007 | Visit-ECX | Clinics at S [address] | | | | | [place] [address] | [place] [address] | | | | | [facility] | Chr[facility], Hem [address] | | | | | Health and Healing, | [address] [place], | | | | | [address] | [place] [address] | | | | | [place], [place] | | | | | | [address] | | | | | | [phone] | | | +--------+ + + + [...] + + + | Blood Pressure | 96/54 | 07/26/2007 1:44 PM | | | | | PST | | + + + + + | Pulse | 78 | 07/26/2007 1:44 PM | | | | | PST | | + + + + + | Temperature | 36.2 C (97.1 F) | 07/26/2007 1:44 PM | | | | | PST [...] + + + + | Weight | 69.4 kg (153 lb) | 07/26/2007 1:44 PM | | | | | PST | | + + + + + | Height | - | - | | + + + + + | Body Mass Index | 25.07 | 05/02/2007 2:06 PM | | | | | PDT | | + + + + + documented in this encounter Plan of Treatment Not on filedocumented as of this encounter Visit Diagnoses Not on filedocumented in this encounter"
--- OUTSIDE RECORDS SUMMARY | ~2020-05-04 | XMS | Encounter Summary ---
Demographics + + + | Address | [address] | | | [place] [address] | + + + | Home Phone [...] + | Gene Gee | ECON | [address] | | | | | [place], | | | | | [place] [address] | | + + + + + Care Team Providers + +------+ + | Care Forest Law And Policy Professor Name | Role | Phone | + +------+ + | Alec Hill MD | PCP | | + +------+ + Encounter Details +--------+ + + + + | Date | Type | Department | Care Team | Description | +--------+ + + + + | 03/26/ | MyChart | Cardiology General | | Cardiology Follow up | | 2018 | Encounter | at [facility] [address] | | appointment | | | | [facility] | | | | | | [facility] and Healing, | | | | | | Building | | | | | | Floor [place], [place] | | | | | | [address] | | | | | | [phone] | | | +--------+ + + + [...]
--- OUTSIDE RECORDS SUMMARY | ~2020-05-04 | XMS | Encounter Summary ---
Demographics + + + | Address | [address] | | | [place] [address] | + + + | Home Phone [...] + | Gene Gee | ECON | [address] | | | | | [place], | | | | | [place] [address] | | + + + + + Care Team Providers + +------+ + | Care Paper Wrapping Machine Operator Name | Role | Phone | + +------+ + | Antony Ribera MD | PCP | | + +------+ + Reason for Visit + + + | Reason | Comments | + + + | Pre-operative | | | evaluation | | + + + Encounter Details +--------+---------+ + + + | Date | Type | Department | Care Team | Description | +--------+---------+ + + + | 10/03/ | Office | Preoperative | Jerica Tariq | Acquired Absence of | | 2012 | Visit | Medicine Clinic at | J, CHAIN MORTISER OPERATOR | Breast (Primary Dx); | | | | [facility] 4th Floor [address] | | Breast cancer | | | | [address] | | (HCC); Atrial | | | | Mailcode: CH4S | | tachycardia 427.89; | | | | [facility] | | Asthma; GERD | | | | and Healing, | | (gastroesophageal | | | | Building [address]4th Floor | | reflux disease) | | | | [place], [place] | | | | | | [address] | | | | | | [phone] | | | +--------+---------+ + + + Anesthesia Record + + + + + | Procedure Name | Responsible | Anesthesia Start | Anesthesia Stop Time | | | Anesthesiologist | Time | | + + + + + | RIGHT BREAST TISSUE | Myah Dawson MD | 10/04/12 0732 | 10/04/12 1125 | | [employer]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 | + + + + + | No agents on file. | + + + + | No [...] 19 | | | | ical) | Vietnamese; Alexander | | | +--------+ + + [...] + + + | Blood Pressure | 121/60 | 10/03/2012 2:03 PM | | | | | PDT | | + + + + + | Pulse | 66 | 10/03/2012 2:03 PM | | | | | PDT | | + + + + + | Temperature | 36.3 C (97.4 F) | 10/03/2012 2:03 PM | | | | | PDT | | + + + + + | Respiratory Rate | 12 | 10/03/2012 2:03 PM | | | | | PDT | | + + + + + | Oxygen Saturation | 97% | 10/03/2012 2:03 PM | | | | | PDT | | + + + + + | Inhaled Oxygen | - | - | | | Concentration | | | | + + + + + | Weight | 64 kg (141 lb) | 10/03/2012 2:03 PM | | | | | PDT | | + + + + + | Height | 166.4 cm (5' 5.5") | 10/03/2012 2:03 PM | neck 33.5 cm | | | | PDT | | + + + + + | Body Mass Index | 23.11 | 10/03/2012 2:03 PM | | | | | PDT | | + + + + + documented in this encounter Patient Instructions Patient Instructions Jerica Tariq, MAGGY - 10/03/2012 2:31 PM PDT PREOPERATIVE INSTRUCTIONS Empty stomach before surgery! On the day BEFORE your surgery, drink plenty of fluids and stay well hydrated Do not eat or drink ANYTHING after midnight the night before surgery, or 8 hours prior t o surgery. This includes water, coffee, candy, mints, gum. Medications Instructions TAKE the following medications with a sip of water on the morning of surgery: arimidex Atenolol aciphex Dofetilide as usual Use inhalers as usual and bring to hospital Unless otherwise directed by your surgeon, do not take any Aspirin, vitamin E or non-lizzy roidal anti-inflammatory (NSAIDs i.e. Advil, Aleve, Ibuprofen) or herbal supplements 7-14 da ys prior to your surgery. These drugs may interfere with normal blood clotting and may cause excessive bleeding and bruising during or after the surgery. If you are taking Coumadin (warfarin), Plavix or any other blood thinners please let you r surgical team know as medication changes may be necessary. If you need a pain medication for general purposes, use Tylenol as directed. OK to take it even on the morning of surgery, if needed. If you are in doubt about any medications that you are taking, please contact our office . Skin preparation to help avoid surgical site infections HIBICLENS GUIDE TO GENERAL SKIN CLEANSING AT HOME BEFORE SURGERY Before you bathe or shower: Read the instructions given to you by your healthcare practitioner, and begin your genera l skin cleansing protocol as directed. Carefully read all directions on the product label. Hibiclens is not to be used on the head or face, keep out of the eyes, ears and mouth. Hibiclens is not to be used in the genital area. Hibiclens should not be used if you are allergic to chlorhexidine gluconate or any other ingredients in this preparation. *See Hibiclens label for full product information and precautions. When you bathe or shower the night before your surgery: If you plan to wash your hair, do so with your regular shampoo. Then rinse hair and body thoroughly to remove any shampoo residue. Wash your face with your regular soap or water only. Thoroughly rinse your body with warm water from neck down. Use Hibiclens as you would any other liquid soap. Please do not put the Hibiclens on a wa sh cloth, apply directly to the skin and wash gently. Apply the minimum amount of Hibiclens necessary to cover the skin. Leave the Hibiclens on your skin for 1 minute, then rinse off. Rinse thoroughly with warm water. Do not use your regular soap after applying and rinsing Hibiclens. When using Hibiclens for a second day in a row (morning of surgery, as soon as you wake up) : Shower/bathe again using Hibiclens in the same method as described above. Do not apply any lotions, deodorants, powders or perfumes to the body areas that have been cleaned with Hibiclens. Other Important Guidelines Do not shave the surgical area Do not smoke, drink alcohol or use recreational drugs for 24 hours before your surgery Watch for any change in your health condition. Let your surgeon know right away if you do not feel well. Do not wear makeup, perfume, lotions, deodorant, powder or hairspray. Do not wear any jewelry to the hospital. Wear loose, comfortable clothing. Leave all your valuables at home. Allow enough travel time so you re not late for your check in for surgery. Take a bath or shower and remember to shampoo your hair using your usual hair product bef ore your arrival at the hospital. Please remember to brush your teeth the night before and the morning of your procedure. Preventing post op complications while you are in the hospital Use an incentive spirometer or peep breathe to keep your lungs working properly an d to help prevent respiratory complications. It helps you take long, deep breaths. Use it at least once every hour while you are awake. Leg and feet exercises will maintain good circulation and help prevent blood clots in yo ur legs. Sometimes your doctor will order air compression stockings. Compressed air helps the circulation in your legs. Walking and moving will help stimulate normal circulation and deep breathing. After you r surgery, your nurse may ask you to sit, stand or walk. Surgery Check in Locations Admitting [facility] Surgery Check in Time: The Preoperative Medicine Clinic is not in the position to give you accurate information regarding surgical check in time. We refer you back to your surgical office regarding this important information. Going Home Your surgical team will decide when you are medically ready to go home. If you are released to go home on the same day as your procedure/surgery please note the following: You will not be able to drive. You will be required to have a competent person drive you or accompany you by taxi or pu blic transportation on the day of discharge. It is also required that you have a competent person assist you and look after you on th e first night after you have undergone regional blocks (72 hours for patients going home wit h regional block pump), deep sedation, and/or general anesthesia. If you have questions or concerns after you go home, call your doctor s office. If it is after office hours, call the [facility] welding machine operator helper gas at [phone] and ask them to page him or h er. Preparing For Your Surgery Video -- 7 minutes of instructions! If you have access to the Internet and would like to review our instructional video about g etting ready for your procedure day, please follow these directions: Access the [facility] website [email or web address] --> POPULAR RESOURCES --> Patient Guide --> Preparing for your Visit or Surgery --> "Preparing for Your Surgery" video link documented in this encounter Progress Notes Jerica Tariq FNP - 10/03/2012 3:01 PM PDTFormatting of this note might be differen t from the original. 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 female here for preoperative evaluat ion for above procedure. Pt has dx of left breast mastectomy for breast cancer 5 yrs ago. She now is ready for breas t reconstruction. She recently finished arimidex treatment. PMH significant for symptomatic atrial arhythmia stable on atenolol and dofetilide, she see s Dr Fuentes at [facility] 2 times a year. She had a normal stress test 02/24. 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 No medication changes and she has been stab le since. She has mild asthma, exacerbated by URI this winter, stable today on daily bodeson carson inhaler. Last albuterol use several weeks ago. Her GERD is stable on bid PPI. She has no hx nor symptoms of CAD, CHF, CVA, CKD or DM (treated with insulin). Functional capacity is Intermediate ROS: Current Medication List Name Sig ATENOLOL 50 MG TABLET Take 25 mg by mouth two times daily. 1/2 tablet twice daily BUDESONIDE 180 MCG/ACTUATION BREATH ACTIVATED POWDER INHALER Inhale 3 Puffs two times daily . CITRACAL + D 315 MG-200 UNIT TABLET 2 tabs in evening and liquid calcium citrate in AM CEPHALEXIN 500 MG CAPSULE Take 1 Cap by mouth three times daily for 5 days. DICLOFENAC 1 % TOPICAL GEL Apply to affected area three times daily. DOFETILIDE 500 MCG CAPSULE Take 1 Cap by mouth two times daily. EZETIMIBE 10 MG TABLET Take 10 mg by mouth once daily. FLUTICASONE 50 MCG/ACTUATION NASAL SPRAY, SUSP Instill 1 Aiken into each nostril two times daily. GLUCOSAMINE SULFATE DIPOTASSIUM CHLORIDE 1,000 MG TABLET one daily HYDROCODONE-ACETAMINOPHEN 5 MG-500 MG TABLET Take 1 Tab by mouth every four hours as needed (for pain.). Not to exceed 6 tablets per any 24 hour period. (Not to exceed 3250 mg of acet aminophen from all products per 24 hour period.) LORAZEPAM 1 MG TABLET 0.5 Tabs Q HS PRN. METHYLCELLULOSE (LAXATIVE) ORAL POWDER Take by mouth. MULTIVITAMIN OR one daily POTASSIUM CHLORIDE ER 20 MEQ TABLET,EXTENDED RELEASE(PART/CRYST) Take 1 Tab by mouth once d aily. RABEPRAZOLE 20 MG TABLET,DELAYED RELEASE Take 20 mg by mouth every twelve hours. ANTIOXIDANT FORMULA CAPSULE take 1 capsule by oral route once daily with food VITAMIN D ORAL 2000 IU daily Allergies Allergen Reactions Sulfa (Sulfonamide Antibiotics) Swelling-Facial [...] [facility] Heart ablation 12/16/2004,09/21/2005 Dr. Fuentes, [facility] Mastectomy Biopsy / excision / dissection axillary node Family History Problem Relation Diabetes Heart Disease Additional Family History Mother osteoporosis/hip fracture History Substance Use Topics Smoking status: Never Smoker Smokeless tobacco: Never Used Comment: nonsmoker/parents smoked Alcohol Use: No PHYSICAL EXAM: Last Vitals: BP 121/60 | Pulse 66 | Temp (Src) 36.3 C (97.4 F) (Oral) | RR 12 | Ht 1.66 4 m (5' 5.5") | Wt 63.957 kg (141 lb) | SpO2 97% | BMI 23.11 kg/(m^2) Body mass index is 23. 11 kg/(m^2). PMC ROS Last edited 10/03/12 1501 by MAGGY Alvarez ROS Pulmonary: History of pulm embolus and [...] is normal Dentition Comments: TMJ Melo: No Mallampati: I [...] normal Implants: None, Comments: DIFFICULT IV ACCESS LAB DATA REVIEWED/ORDERED Lab Results Component Value Date WBC 6.3 [...] 06/17/2012 TP 6.5 06/17/2012 ALB 4.1 06/17/2012 Lab Results Component Value Date ABO B 06/25/2012 RH Positive 06/25/2012 EKG: Personally reviewed, 06/25/12, sinus bradycardia, VR= 57, Qtc 471 MEDICAL DECISION MAKIN ACC/ AHA Perioperative Guidelines 1. Need for emergency noncardiac surgery? b. No -> Proceed to next step. 2. Active Cardiac Conditions? These conditions mandate further investigation and manageme nt. A. Acute FL within 7 days: no B. Unstable angina/Recent FL (7- 30 days): no C. Decompensated CHF: no D. Significant arrhythmia: None E. Severe valvular disease: NONE 3. Low risk surgery? b. No -> proceed with next step. 4. Good functional capacity? MET ASSESSMENT: 5. METS--walking briskly, washing the car. 5. Assess Clinical Risk Factors? A. Ischemic heart disease: no B. Compensated / prior heart failure: no C. Diabetes mellitus (treated with insulin): no D. Renal insufficiency (Cr > 2): no E. 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 female with diagnosis of breas t cancer, scheduled for . According to ACC/AHA, this patient has no clinical risk factors and the recommendation is to proceed with planned surgery without additional cardiac testing . Medication management recommendations: The patient was advised to continue all usual med ications except as noted in Patient Instructions (After Visit Summary given to pt) Perioperative antibiotic prophylaxis: Standard (Consider IV Vanco one hr before procedu re in pts with Cephalosporin/PCN allergy and/or with hx of MRSA) Arhythmia, stable clinically, plan is to monitor her post op for 23hours. Take atenolol and dofetilide in am as usual GERD, symptoms well controlled on PPI, take am of surgery Asthma, stable clinically, use inhaler and bring to hospital This patient is medically stable for surgery. Further testing/optimization is not needed. Thank you for the opportunity to contribute to this patient's care. MAGGY TRENT [facility] PREOPER[facility] MEDICINE CLINIC [address] [place] [address] [place] [address] documented in th is encounter Plan of Treatment Not on filedocumented as of this encounter Visit Diagnoses + + | Diagnosis | + + | Acquired Absence of Breast - Primary Acquired absence of breast and nipple | + + | Breast cancer (HCC) Malignant neoplasm of breast (female), unspecified site | + + | Atrial tachycardia 427.89 Other specified cardiac dysrhythmias | + + | Asthma | + + | GERD (gastroesophageal reflux disease) Esophageal reflux | + + documented in this encounter
--- OUTSIDE RECORDS SUMMARY | ~2020-05-04 | XMS | Encounter Summary ---
Demographics + + + | Address | [address] | | | [place] [address] | + + + | Home Phone [...] + | Gene Gee | ECON | [address] | | | | | [place], | | | | | [place] [address] | | + + + + + Care Team Providers + +------+ + | Care Integration Assistant Name | Role | Phone | + +------+ + | Antony Ribera MD | PCP | | + +------+ + Encounter Details +--------+ + + + + | Date | Type | Department | Care Team | Description | +--------+ + + + + | 12/31/ | Documentati | EDMAR JON at [facility] | [place] | | | 2012 | on | [address] | [address] | | | | | [address] [facility] | [address] [place], | | | | | Health and Healing, | [place] [address] | | | | | [address] | [phone] | | | | | [facility] [place] | | | | | | [address] | | | | | | [phone] | | | +--------+ + + + [...] encounter Miscellaneous Notes Telephone Encounter - Carisa Corcoran RN - 12/31/2012 10:28 AM PDTRN Call to patient to co nfirm Mot[employer] and Impedence 24 hour Ph apt. Scheduled on 01/07/2013 with GIP RN. Patient aware of check in time. Patient understands diet instructions and will stay on clear liquids after midnight and sta y NPO 2 hrs prior to check in. Reviewed medications with patient, patient will discontinue Aciphex 5 days prior to procedu re. Patient plans to return the next day for probe removal. Per medical review: Other Comments: GI RN: Pt had 01/12/10 EGD with Helms placement at [facility]. Since LES measurement not found ma nometrically then she will need manometry for 24hr dual pH probe. Pt has chronic cough, [facility] pulmonary referral asking for pH probe study with impedance to evaluate for gastric aspirat ion. Hx sinus surgery . documented in this en counter Plan of Treatment Not on filedocumented as of this encounter Visit Diagnoses Not on filedocumented in this encounter"
--- OUTSIDE RECORDS SUMMARY | ~2020-05-04 | XMS | Encounter Summary ---
Demographics + + + | Address | [address] | | | [place] [address] | + + + | Home Phone | | + + + | Preferred Language | Unknown | + + + | Marital Status | | + + + | Church Affiliation | CHR | + + + | Race | White | + + + | Ethnic Group | Not or | + + + Author + + + | Author | [facility] | + + + | Organization | [facility] | + + + | Address | Unknown | + + + | Phone | Unavailable | + + + Support + + + + + | Name | Relationship | Address | Phone | + + + + + | Gene Gee | ECON | [address] | | | | | [place], | | | | | [place] [address] | | + + + + + Care Team Providers + +------+ + | Care Wax Pattern Assembler Name | Role | Phone | + +------+ + | Alec Hill MD | PCP | | + +------+ + Encounter Details +--------+ + + + + | Date | Type | Department | Care Team | Description | +--------+ + + + + | 02/24/ | Telephone | Pulmonary & | Juana Kilgore MD | | | 2020 | | Critical Care | [address] | | | | | Medicine at | [facility], | | | | | [facility] | [place] [address] | | | | | [address] | [phone] | | | | | [address] [facility] | | | | | | [facility], 3rd Floor | | | | | | [place], [place] | | | | | | [address] | | | | | | [phone] | | | +--------+ + + + [...] Telephone Encounter - Yajaira Geronimo MA - 02/25/2020 11:41 AM PDTCalled to transfer 1 re fill [facility] levalbuterol [facility] [place]. Patient traveling. documented in this en counter Plan of Treatment Not on filedocumented as of this encounter Visit Diagnoses Not on filedocumented in this encounter"
--- OUTSIDE RECORDS SUMMARY | ~2020-05-04 | XMS | Encounter Summary ---
Demographics + + + | Address | [address] | | | [place] [address] | + + + | Home Phone [...] + | Gene Gee | ECON | [address] | | | | | [place], | | | | | [place] [address] | | + + + + + Care Team Providers + +------+ + | Care Public Transit Trolley Driver Name | Role | Phone | + +------+ + | Antony Ribera MD | PCP | | + +------+ + Reason for Visit + + + | Reason | Comments | + + + | Postoperative visit | R breast recon w/te placement and possible alloderm. | + + + Global Period - [...] | | | | | | | [facility] | | | | | | | Health and | | | | | | | Healing, | | | | | | | Building [address], | | | | | | | 5th Floor | | | | | | | [place], [place] | | | | | | | [address] | | | | | | | Phone: | | | | | | | [phone] | +--------+--------+ + + + + Encounter Details +--------+---------+ + + + | Date | Type | Department | Care Team | Description | +--------+---------+ + + + | 08/06/ | Office | Plastic and | Kelsi Lopez | Breast cancer (HCC) | | 2012 | Visit | Rory Peguero MD | (Primary Dx) | | | | Surgery at [facility] [address] | | | | | | [address] [facility] | | | | | | for Health and | | | | | | Healing, Building [address], | | | | | | 5th Floor | | | | | | [place], [place] | | | | | | [address] | | | | | | [phone] | | | +--------+---------+ + + + [...] encounter Progress Notes Kelsi Lopez MD - 08/08/2012 7:50 AM [facility] Plastic and Reconstructive Surgery Post-operative Visit S: HPI: Adriana Flynn is a 66 y.o. female who presents today status-post Placement of right s ubpectoral tissue energy conservation engineer 450 mL [place] Siltex Contour Profile energy conservation engineer, reference #[id number], serial #[id number] , filled to 250 mL intraoperatively on 06/26/12. She is experiencing pain in the right axilla with ROM of RUE and feels like TE is pressing against scar tissue. Her pain control is good. She is currently taking narcotics for pain. Here today for her las t TE fill. O: Vitals: There were no vitals taken for this visit. General Appearance: Well-developed, well-nourished female in no apparent distress. Chest: right breast: shape and contour c/w placement of TE. Position of TE is good, does ap pear to be lateral. Incision is clean, dry, intact, and well approximated. There is no ballo table fluid collections. No e/o infection. A/P: Status-post Placement of right subpectoral tissue energy conservation engineer - 450 mL [place] Siltex Cont our Profile energy conservation engineer, reference #[id number], serial #[id number] , filled to 250 mL intraopera tively. Doing well. -Monitor for s/sx of infection -Continue PT for arm ROM -TE fill today, 50 ml right breast. Pt does not want any more prior to exchange and would l domingo a symmetry procedure done at time of exchange. Total volume prior to today: 400cc Volume after today's fill: 450cc Tissue energy conservation engineer size: 450 cc -Discussed continued incision care: gently clean with soap and running water, apply thin fi lm of abx ointment, bandage to keep clean and dry. -Pt was not comfortable to continue TE fills back home and will continue to come to [facility]. -F/U with [facility] one month. Explained to patient that since I am leaving [facility], that her next procedure would be with one of my partners. documented in this encounter Plan of Treatment Not on filedocumented as of this encounter Visit Diagnoses + + | Diagnosis | + + | Breast cancer (HCC) - Primary Malignant neoplasm of breast (female), unspecified site | + + documented in this encounter"
--- OUTSIDE RECORDS SUMMARY | ~2020-05-04 | XMS | Encounter Summary ---
Demographics + + + | Address | [address] | | | [place] [address] | + + + | Home Phone [...] + | Gene Gee | ECON | [address] | | | | | [place], | | | | | [place] [address] | | + + + + + Care Team Providers + +------+ + | Care Clinical Rehabilitation Coordinator Name | Role | Phone | [...] | | | | | MEDICINE | [address] Phone: | | | | | | [address] | [phone] | | | | | | [facility] | Fax: | | | | | | [address] | [phone] | | | | | | [place], | | | | | | | [place] [address] | | | | | | | Phone: | | | | | | | [phone] | | | | | | | Fax: | | | | | | | [phone] | | +--------+--------+ + + + + Encounter Details +--------+---------+ + + + | Date | Type | Department | Care Team | Description | +--------+---------+ + + + | 02/08/ | Office | Cardiology | Gary Fuentes MD | Atrial tachycardia | | 2014 | Visit | Arrhythmia at [facility] | [address] | 427.89 (Primary Dx) | | | | [address] | [address] [place], | | | | | [facility] | [place] [address] | | | | | and Healing, | [phone] | | | | | Building | | | | | | Floor [place], [place] | | | | | | [address] | | | | | | [phone] | | | +--------+---------+ + + + [...] + + + | Blood Pressure | 120/78 | 02/08/2015 10:41 AM | | | | | PDT | | + + + + + | Pulse | 60 | 02/08/2015 10:41 AM | | | | | PDT | | + + + + + | Temperature | 36.8 C (98.2 F) | 02/08/2015 10:41 AM | | | | | PDT | | + + + + + | Respiratory Rate | - | - | | + + + + + | Oxygen Saturation | 99% | 02/08/2015 10:41 AM | | | | | PDT | | + + + + + | Inhaled Oxygen | - | - | | | Concentration | | | | + + + + + | Weight | 66.3 kg (146 lb 3.2 | 02/08/2015 10:41 AM | | | | oz) | PDT | | + + + + + | Height | 167.6 cm (5' 6") | 02/08/2015 10:41 AM | | | | | PDT | | + + + + + | Body Mass Index | 23.6 | 02/08/2015 10:41 AM | | | | | PDT | | + + + + + documented in this encounter Patient Instructions Patient Instructions Gary Fuentes MD - 02/08/2015 10:58 AM SANTANAYou are doing well. I would no t make any changes in your medications at this time. I will see you back in 6 months. documented in this encounter Progress Notes Gary Fuentes MD - 02/08/2015 10:45 AM PDT EP/Cardiology Clinic Office Visit on 02/08/2015 PCP is Antony Ribera MD ID and Chief Complaint: Adriana Flynn is a 69y.o. female with a history of atrial tachycardia (EP study without ablation 2005), right breast cancer ([id number] s/p mastectomy & XRT), GERD, Sjogren's Syndrome, Multiple SBO's, hx of PE 2008 who comes in today for follow up of her atrial arrhythmias. In general she has done better since reducing Metoprolol to 75 mg tid. She has prodromes, but never any full episode of arrhythmia since adjusting her dose. ROS: She has otherwise been well for the past year without other significant medical issue s currently. She has had some leg swelling. Current Medications: albuterol (PROAIR HFA) 90 mcg/actuation inhalation HFA aerosol inhaler, Inhale 1-2 puffs ev lupe four hours as needed. Indications: ACUTE ASTHMA ATTACK budesonide (PULMICORT FLEXHALER) 180 mcg/actuation inhalation aerosol powdr breath activate d, Inhale 3 puffs two times daily. calcium citrate-vitamin D (CITRACAL + D) 315-200 mg-unit Oral Tablet, 2 tabs in evening an d liquid calcium citrate in AM carboxymethylcellulose 0.5 % ophthalmic dropperette, 1 drop 3 Times Daily DOFETILIDE 500 mcg oral capsule, Take 1 [...] Laxative, (CITRUCEL) Oral Powder, Take by mouth. metoprolol tartrate 100 mg oral tablet, 1 tab 3x/day MULTIVITAMIN OR, one daily potassium chloride SR 20 mEq oral tablet,ER particles/crystals, Take 1 tablet by mouth once daily. rabeprazole (ACIPHEX) 20 mg Oral Tablet, Delayed Release (E.C.), Take 20 mg by mouth every twelve hours. RESTASIS 0.05 % Ophthalmic Dropperette, 1 drop two times daily. Vitamin A-Vitamin C-Vit E-Min (ANTIOXIDANT FORMULA) Oral Capsule, take 1 capsule by oral ro hillary once daily with food VITAMIN D ORAL, 2000 IU daily Filed Vitals: 02/08/2015 10:41 AM Height: 1.676 m (5' 6") Weight: 66.316 kg (146 lb 3.2 oz) BP: 120/78 Pulse: 60 Temp: 36.8 C (98.2 F) TempSrc: Oral SpO2: 99% PainSc: 04 - Moderate PainLoc: Chest BMI: 23.61 kg/(m^2) General: AO X3 in NAD Neck: No JVD Chest: Clear CV: RRR no murmurs Ext: Warm ; no peripheral edema ECG: NSR (November 2014) Impression: 69 y.o. female with a history of atrial tachycardia and two prior EP studies w clay has had frequent palpitations and documented brief runs of atrial ectopy. She is doing fa irly well on current dose of Metoprolol. Therefore, I would not make any changes in her medi olga regimen. Plan: RTC 6 [facility] of Treatment Not on filedocumented as of this encounter Procedures + +--------+ + + + | Procedure Name | Priori | Date/Time | Associated Diagnosis | Comments | | | ty | | | | + +--------+ + + + | CARDIOLOGY | | 02/08/2015 | | Results for this | | | | 12:00 AM | | procedure are in the | | | | PDT | | results section. | + +--------+ + + + documented in this encounter Results CARDIOLOGY (02/08/2015 12:00 AM PDT) + + + | Narrative | Performed At | + + + | | | + + + documented in this encounter Visit Diagnoses + + | Diagnosis | + + | Atrial tachycardia 427.89 - Primary Other specified cardiac dysrhythmias | + + documented in this encounter
--- OUTSIDE RECORDS SUMMARY | ~2020-05-04 | XMS | Encounter Summary ---
Demographics + + + | Address | [address] | | | [place] [address] | + + + | Home Phone | | + + + | Preferred Language | Unknown | + + + | Marital Status | | + + + | Temple Affiliation | CHR | + + + [...] + | Gene Gee | ECON | [address] | | | | | [place], | | | | | [place] [address] | | + + + + + Care Team Providers + +------+ + | Care Med Aide Name | Role | Phone | + +------+ + | Alec Hill MD | PCP | | + +------+ + Encounter Details +--------+ + + + + | Date | Type | Department | Care Team | Description | +--------+ + + + + | 06/23/ | Ancillary | Registration [id number] | Katie Callahan MD | | | 2004 | Registratio | [address] | [address] | | | | [address] | [address] Mailcode: [id number] | [place], | | | | | [place], [place] | [place] [address] | | | | | [address] | [phone] | | | | | [phone] | | | +--------+ + + + [...]
--- OUTSIDE RECORDS SUMMARY | ~2020-05-04 | XMS | Encounter Summary ---
Demographics + + + | Address | [address] | | | [place] [address] | + + + | Home Phone [...] + | Gene Gee | ECON | [address] | | | | | [place], | | | | | [place] [address] | | + + + + + Care Team Providers + +------+ + | Care Pediatric Rn Name | Role | Phone | + +------+ + | Antony Ribera MD | PCP | | + +------+ + Reason for Visit + +--------+ + | Reason | Onset | Comments | | | Date | | + +--------+ + | Refill Request | 07/17/ | | | | 2012 | | + +--------+ + Encounter Details +--------+--------+ + + + | Date | Type | Department | Care Team | Description | +--------+--------+ + + + | 07/17/ | Refill | Cardiology General | Monique Middleton, | Refill Request | | 2012 | | at [facility] [address] | [employer] [address] | | | | | [facility] | | | | | | Health and Healing, | | | | | | [facility] | | | | | | Floor [place], [place] | | | | | | [address] | | | | | | [phone] | | | +--------+--------+ + + + [...]
--- OUTSIDE RECORDS SUMMARY | ~2020-05-04 | XMS | Encounter Summary ---
Demographics + + + | Address | [address] | | | [place] [address] | + + + | Home Phone [...] + | Gene Sahil | ECON | [address] | | | | | [place], | | | | | [place] [address] | | + + + + + Care Team Providers + +------+ + | Care Cream Cheese Maker Name | Role | Phone | + +------+ + PCP | Unavailable | + +------+ + Encounter Details +--------+ + + + + | Date | Type | Department | Care Team | Description | +--------+ + + + + | 06/29/ | Orders Only | | Record, Operation | | | 2004 | | | | | +--------+ + [...] as of this encounter Procedure Notes Interface, Pad Machine Offbearer In - 07/05/2005 6:09 AM PST [id number] SAHIL Holman Date: 06/29/2004 Attending Surgeon: Katie Callahan M.D. Gsa Coordinator(s): Raymond Hansen MD Preoperative Diagnosis(es): Multiple symptomatic hepatic cysts with hemorrhage, dominant cyst in right lobe of liver. Postoperative Diagnosis(es): Multiple symptomatic hepatic cysts with hemorrhage, dominant cyst in right lobe of liver. Procedures Performed: Exploratory laparotomy with excision and unroofing of multiple cyst bardales, alcohol sclerotherapy, marsupialization. Anesthesia: Complications: Specimens: Eleven total specimens were submitted for pathological evaluation as follows: : 1. Cyst wall, cyst between segments 2 and 4, sent for frozen section and benign by frozen section, and sent for permanent section as well. 2. Cyst wall, small cyst in between segments 2 and 3 sent for permanent pathology. 3. Segment 2 of liver, cyst #1 sent for frozen section, completely excised, and benign. 4. Segment 2 of liver, cyst #2, sent for permanent section. 5. Segment 4 of the liver, cyst #1 permanent section. 6. Segment 4 of the liver, cyst #2 permanent, cyst wall excision. 7. Segment 4 of liver, cyst #6, cyst wall sent for permanent section. 8. Segment 5 and 8 of liver, large dominant cyst wall, submitted for permanent pathology. 9. Segment 7 of liver, cyst wall excision for permanent pathology. 10. Intervening cyst wall between segment 7 and 8, excision sent for permanent section. Indications: Mrs. Flynn is a 58-year-old female with a known history of multiple large hepatic cyst dating back to 1998. The patient underwent a workup for right upper quadrant pain which was attributed to symptomatic cholelithiasis. A CT scan of the abdomen was notable for multiple large hepatic cysts that were benign in appearance. The patient had recently in March 2004 acute onset of right upper quadrant pain. It was evaluated with CT scan of the abdomen which again showed multiple large cysts on the liver with a dominant cyst measuring approximately 10 x 12 cm in the right lobe of the liver. CT findings were consistent with a small amount of bleeding within the posterior aspect of the cyst in a dependent position. The patient continued to have pain and had additional episode of severe right upper quadrant pain and again underwent CT scan of the abdomen on April 30, 2004, showing the cysts were stable with hematoma within the dominant cyst. She has had progressive pain in the right upper quadrant limiting her activities of daily living. The patient had pain with deep inspiration, coughing, and ambulation. She presented to [facility] On June 24, 2004, was seen and evaluated by Dr. Katie Callahan with recommendation to proceed to the Operating Room for excision of multiple cyst bardales, alcohol sclerotherapy, and marsupialization of the cysts. The patient was consented for such procedure and now presents for this procedure. Procedure: The informed consent was verified. The patient was properly identified and underwent placement of an epidural catheter for anesthesia in the preoperative holding area. She was then brought to the Operating Theatre was placed on the operating table in supine position. General endotracheal anesthesia was induced. An internal jugular central line was placed as well as an arterial line for anesthesia. The patient was then scrubbed and draped in standard fashion to facilitate exploratory laparotomy with multiple cyst wall excision. The patient was prepped from nipple to pubis and table to table. She then squared off, and an Ioban drape was placed. Bilateral subcostal incisions were marked 2 fingerbreadths below the costal margin extending from the right anterosuperior iliac spine to the midline and then just left lateral of the rectus muscle. The skin was incised with a #10 blade scalpel to the level of the dermis. Bovie electrocautery was used for hemostasis. The incision was then extended down to the rectus muscles medially. These were carefully divided with Bovie electrocautery down to the posterior fascia. Laterally, the external and internal oblique muscles were divided carefully with Bovie electrocautery down to the level of the posterior fascia. In the midline, the peritoneum was elevated and entered under direct visualization. Bovie electrocautery was then used to extend the subcostal incision to complete the incision. The falciform ligament was identified. This was divided between two 0 silk suture ligatures. Two facilitate adequate exposure of liver for cyst resection, a midline extension was then completed to the xiphoid sharply with a scalpel. Bovie was then used to complete the division of the abdominal wall in the midline avascular plane. At this point, an Omni retractor was placed to facilitate exposure of the right upper quadrant. Abdominal wall blades were used to retract the right upper quadrant as well as the left upper quadrant to facilitate exposure of the liver. We began by mobilizing the left triangular ligaments of the liver with Bovie electrocautery. This was done from a lateral most orientation of the ligaments proceeding until we just reached the inferior vena cava. The first cyst was identified, adjoining segments 2 and 4 of the liver. The cyst was readily visualized on CT scan and measured approximately 5 cm in diameter. Four stay sutures with 3-0 Maxon were placed, and a small portion of the cyst wall was excised and sent sent for frozen section and returned benign by pathological evaluation. The remainder of the cyst wall was then excised with Bovie electrocautery to the margin of the hepatic parenchyma. The cyst wall was sent for permanent pathology. The liver was packed with sterile operative towels, and approximately, 10 mL of 75% ethanol was instilled into the cyst cavity with care not to spill any of the alcohol. This was left in place for 5 minutes. The margins of the cyst wall were then very carefully debrided with a Kitner sponge. The free edges of the cyst wall excision were then marsupialized. This was done with a running 3-0 Prolene in a running horizontal mattress fashion to marsupialize the edge to the inner fibrous layer of the cyst wall in a circumferential manner to prevent re-approximation of the edges of the cyst wall and re-accumulation of the cyst. Next, we identified a small cyst measuring approximately 2 cm in diameter bordering segments 2 and 3 of the liver. The cyst wall was excised in a similar fashion and sent for permanent pathology. These cysts were too small to facilitate marsupialization. The margins of the cysts were then treated for hemostasis with the argon beam stock broker. Next, 2 additional cysts were identified at the lateral margin of segment 2 of the liver. The first cyst was at the extreme margin of the liver and was completely excised with Bovie electrocautery. This was sent for frozen section and returned benign. The cut edge of liver was coagulated with the argon beam. The second cyst also within segment 2 with larger measuring approximately 4.5 cm in diameter. The cyst wall was excised with Bovie electrocautery. Ethanol 75% was instilled into the cyst with careful packing of the liver with sterile towel and care not to spill any of the alcohol. This was left in situ for 5 minutes. The cyst wall was then very carefully debrided with a Kitner sponge, and argon beam was used for hemostasis around the cut margins of the cyst wall. Next, our attention was turned toward segment 4 of the liver where 6 separate cysts were identified at the surface of the liver as well as one deep within the parenchyma of the liver. The first cyst was excised, and a small cyst wall was sent for permanent section. The cavity was then treated with argon beam coagulation. The second cyst, the larger of the two was excised by taking Bovie electrocautery to excise the cyst wall to the intact hepatic parenchyma. The cyst wall was also sent for permanent pathology. Alcohol 75% was used to sclerose this cyst cavity. The alcohol was left in situ for 5 minutes. The margins of the cyst wall were then very carefully debrided with a Kitner sponge, and argon beam coagulation used to provide hemostasis at the cut margins of the cyst excision. Cyst numbers 3, 4, and 5 were simply unroofed with Bovie electrocautery, and hemostasis achieved with argon beam coagulation. Cyst #6 was excised, and the cyst wall sent for permanent pathology. This cyst measured approximately 1.5 cm similar to cyst numbers 3, 4, and 5. Argon beam was used for hemostasis around the cut margins of the cyst. Nest, our attention was turned toward the large cyst in the dominant lobe of the liver. These were readily visualized on the computed tomography scan as involving the right lobe with the largest measuring 10 x 12 cm with a small adjoining cyst next to this. To facilitate exposure of the right lobe of the liver, the right triangular ligaments were taken down with Bovie electrocautery. The right lobe of the liver was rotated in a medial orientation, and the attachments divided down to the level of the inferior vena cava. The posterior aspect of the liver was then packed with lap sponges. The large cyst was identified involving segment numbers 5 and 8 of the liver. The cyst wall was excised. This cyst unlike the others had evidence of old dark blood present within the cyst, 10 mL of this was sent for Gram's stain and cytology. Remainder of the cyst was aspirated. The cyst wall itself was excised with Bovie electrocautery leaving approximately 0.5-cm margin of cyst wall to facilitate marsupialization. This was excised in a circumferential manner. In addition, the cyst adjoining segment 7 of liver immediately adjacent to this cyst was excised by Bovie electrocautery. A small septum between the cyst was excised, and both cyst bardales as well as intervening septum were sent for permanent pathology. The now combined defect, comprised of both cysts, was instilled with 75% ethanol for a 5-minute duration. The ethanol was removed by suctioning it free and clear. Very carefully the bardales of the cyst were debrided with the a Kitner sponge. The free edge of the transected cyst was then marsupialized with 3-0 Prolene suture. Again, a running horizontal mattress fashion was used to facilitate this. A horizontal drill through the free edge of the cyst wall was then secured approximately 1 cm beyond the free edge to the fibrotic interior cyst wall. This was done over and over in a running fashion resulting in imbrication of the cut edge of the cyst wall resulting in a nice marsupialization in a circumferential manner. Three other small cysts were identified at the posterior aspect of segment 6 of liver. These were simply unroofed with Bovie electrocautery. The cyst was found as with all the others with the exception of the large dominant cyst in segment 5 and 8 to have clear serous fluid. At this point, the right upper quadrant including the multiple cysts were irrigated with warm normal saline until the effluent returned clean and clear. Hemostasis was achieved with argon beam coagulation both at the divided triangular ligaments on the right and the diaphragm where the cyst was inflamed and adherent to the diaphragm. Each of the cyst cavities were inspected and found to be hemostatic. A #19 round TIMOTHY drain was brought out through a stab wound at the inferior margin of the right subcostal incision. A Anthony drain was placed in the posterior to the liver adjacent to the inferior vena cava. We secured it to the skin with a 3-0 nylon suture and placed a bulb suction. The abdominal incision was then closed in layers. This was done with #1 Maxon sutures. First the subcostal aspect of the incision was closed. The intersection of the vertical midline extension as well as the left and right subcostals was reapproximated with a #1 Maxon suture to properly orient the 3 aspects of the incision. Next, the posterior fascial layers of the right and left subcostal incisions were closed with running #1 Maxon sutures. The anterior fascial layers were then closed with a running #1 Maxon. The vertical midline incision was next closed with a single running #1 Maxon in the avascular plane. The incisions were irrigated, and the skin closed with interrupted rufino. The incision was covered with 4 x 4 flats and sterile dressings. At the end of the procedure, all needle, sponge, and instrument counts were correct. Dr. Katie Callahan was scrubbed and present for the entire duration of the procedure. Raymond Hansen MD General Surgery Resident Katie Callahan M.D. [facility] of Liver and Pancreas Transplantation / [id number] / [id number] / [id number] / cc: Dilip Frias M.D. [address] [place] [address] Dr.Norman Beebe [employer] [address] [place] [address] Electronically signed by Katie Callahan 07-25-2004 03:38:43 PM documented i n this encounter Plan of Treatment Not on filedocumented as of this encounter Procedures + +--------+ + + + | Procedure Name | Priori | Date/Time | Associated Diagnosis | Comments | | | ty | | | | + +--------+ + + + | OPERATION RECORD | | 06/29/2004 | | Results for this | | | | | | procedure are in the | | | | | | results section. | + +--------+ + + + documented in this encounter Results OPERATION RECORD (06/29/2004) + + | Transcriptions | + + | Interface, Pad Machine Offbearer In - 07/05/2005 6:09 AM PST | | [id number] | | [id number] SAHIL Holman | | | | Date: 06/29/2004 | | | | Attending Surgeon: Katie Callahan M.D. | | | | Gsa Coordinator(s): Raymond Hansen MD | | | | Preoperative Diagnosis(es): | | Multiple symptomatic hepatic cysts with hemorrhage, dominant cyst in right | | lobe of liver. | | | | Postoperative Diagnosis(es): | | Multiple symptomatic hepatic cysts with hemorrhage, dominant cyst in right | | lobe of liver. | | | | Procedures Performed: | | Exploratory laparotomy with excision and unroofing of multiple cyst bardales, | | alcohol sclerotherapy, marsupialization. | | | | Anesthesia: | | | | Complications: | | | | Specimens: | | Eleven total specimens were submitted for pathological evaluation as | | follows: | | : | | 1. Cyst wall, cyst between segments 2 and 4, sent for frozen section and | | benign by frozen section, and sent for permanent section as well. | | 2. Cyst wall, small cyst in between segments 2 and 3 sent for permanent | | pathology. | | 3. Segment 2 of liver, cyst #1 sent for frozen section, completely | | excised, and benign. | | 4. Segment 2 of liver, cyst #2, sent for permanent section. | | 5. Segment 4 of the liver, cyst #1 permanent section. | | 6. Segment 4 of the liver, cyst #2 permanent, cyst wall excision. | | 7. Segment 4 of liver, cyst #6, cyst wall sent for permanent section. | | 8. Segment 5 and 8 of liver, large dominant cyst wall, submitted for | | permanent pathology. | | 9. Segment 7 of liver, cyst wall excision for permanent pathology. | | 10. Intervening cyst wall between segment 7 and 8, excision sent for | | permanent section. | | | | | | Indications: | | Mrs. Flynn is a 58-year-old female with a known history of multiple large | | hepatic cyst dating back to 1998. The patient underwent a workup for right | | upper quadrant pain which was attributed to symptomatic cholelithiasis. A | | CT scan of the abdomen was notable for multiple large hepatic cysts that | | were benign in appearance. The patient had recently in March 2004 | | acute onset of right upper quadrant pain. It was evaluated with CT scan of | | the abdomen which again showed multiple large cysts on the liver with a | | dominant cyst measuring approximately 10 x 12 cm in the right lobe of the | | liver. CT findings were consistent with a small amount of bleeding within | | the posterior aspect of the cyst in a dependent position. The patient | | continued to have pain and had additional episode of severe right upper | | quadrant pain and again underwent CT scan of the abdomen on April 30, | | 2003, showing the cysts were stable with hematoma within the dominant cyst. | | She has had progressive pain in the right upper quadrant limiting her | | activities of daily living. The patient had pain with deep inspiration, | | coughing, and ambulation. She presented to [facility] On | | June 24, 2004, was seen and evaluated by Dr. Katie Callahan with | | recommendation to proceed to the Operating Room for excision of multiple | | cyst bardales, alcohol sclerotherapy, and marsupialization of the cysts. The | | patient was consented for such procedure and now presents for this | | procedure. | | | | Procedure: | | The informed consent was verified. The patient was properly identified and | | underwent placement of an epidural catheter for anesthesia in the | | preoperative holding area. She was then brought to the Operating Theatre | | was placed on the operating table in supine position. General endotracheal | | anesthesia was induced. An internal jugular central line was placed as | | well as an arterial line for anesthesia. The patient was then scrubbed and | | draped in standard fashion to facilitate exploratory laparotomy with | | multiple cyst wall excision. The patient was prepped from nipple to pubis | | and table to table. She then squared off, and an Ioban drape was placed. | | Bilateral subcostal incisions were marked 2 fingerbreadths below the costal | | margin extending from the right anterosuperior iliac spine to the midline | | and then just left lateral of the rectus muscle. The skin was incised with | | a #10 blade scalpel to the level of the dermis. Bovie electrocautery was | | used for hemostasis. The incision was then extended down to the rectus | | muscles medially. These were carefully divided with Bovie electrocautery | | down to the posterior fascia. Laterally, the external and internal oblique | | muscles were divided carefully with Bovie electrocautery down to the level | | of the posterior fascia. In the midline, the peritoneum was elevated and | | entered under direct visualization. Bovie electrocautery was then used to | | extend the subcostal incision to complete the incision. The falciform | | ligament was identified. This was divided between two 0 silk suture | | ligatures. Two facilitate adequate exposure of liver for cyst resection, a | | midline extension was then completed to the xiphoid sharply with a scalpel. | | Bovie was then used to complete the division of the abdominal wall in the | | midline avascular plane. At this point, an Omni retractor was placed to | | facilitate exposure of the right upper quadrant. Abdominal wall blades | | were used to retract the right upper quadrant as well as the left upper | | quadrant to facilitate exposure of the liver. | | | | We began by mobilizing the left triangular ligaments of the liver with | | Bovie electrocautery. This was done from a lateral most orientation of the | | ligaments proceeding until we just reached the inferior vena cava. The | | first cyst was identified, adjoining segments 2 and 4 of the liver. The | | cyst was readily visualized on CT scan and measured approximately 5 cm in | | diameter. Four stay sutures with 3-0 Maxon were placed, and a small | | portion of the cyst wall was excised and sent sent for frozen section and | | returned benign by pathological evaluation. The remainder of the cyst wall | | was then excised with Bovie electrocautery to the margin of the hepatic | | parenchyma. The cyst wall was sent for permanent pathology. The liver was | | packed with sterile operative towels, and approximately, 10 mL of 75% | | ethanol was instilled into the cyst cavity with care not to spill any of | | the alcohol. This was left in place for 5 minutes. The margins of the | | cyst wall were then very carefully debrided with a Kitner sponge. The free | | edges of the cyst wall excision were then marsupialized. This was done | | with a running 3-0 Prolene in a running horizontal mattress fashion to | | marsupialize the edge to the inner fibrous layer of the cyst wall in a | | circumferential manner to prevent re-approximation of the edges of the cyst | | wall and re-accumulation of the cyst. Next, we identified a small cyst | | measuring approximately 2 cm in diameter bordering segments 2 and 3 of the | | liver. The cyst wall was excised in a similar fashion and sent for | | permanent pathology. These cysts were too small to facilitate | | marsupialization. The margins of the cysts were then treated for | | hemostasis with the argon beam stock broker. | | | | Next, 2 additional cysts were identified at the lateral margin of segment 2 | | of the liver. The first cyst was at the extreme margin of the liver and | | was completely excised with Bovie electrocautery. This was sent for frozen | | section and returned benign. The cut edge of liver was coagulated with the | | argon beam. The second cyst also within segment 2 with larger measuring | | approximately 4.5 cm in diameter. The cyst wall was excised with Bovie | | electrocautery. Ethanol 75% was instilled into the cyst with careful | | packing of the liver with sterile towel and care not to spill any of the | | alcohol. This was left in situ for 5 minutes. The cyst wall was then very | | carefully debrided with a Kitner sponge, and argon beam was used for | | hemostasis around the cut margins of the cyst wall. | | | | Next, our attention was turned toward segment 4 of the liver where 6 | | separate cysts were identified at the surface of the liver as well as one | | deep within the parenchyma of the liver. The first cyst was excised, and a | | small cyst wall was sent for permanent section. The cavity was then | | treated with argon beam coagulation. The second cyst, the larger of the | | two was excised by taking Bovie electrocautery to excise the cyst wall to | | the intact hepatic parenchyma. The cyst wall was also sent for permanent | | pathology. Alcohol 75% was used to sclerose this cyst cavity. The alcohol | | was left in situ for 5 minutes. The margins of the cyst wall were then | | very carefully debrided with a Kitner sponge, and argon beam coagulation | | used to provide hemostasis at the cut margins of the cyst excision. Cyst | | numbers 3, 4, and 5 were simply unroofed with Bovie electrocautery, and | | hemostasis achieved with argon beam coagulation. Cyst #6 was excised, and | | the cyst wall sent for permanent pathology. This cyst measured | | approximately 1.5 cm similar to cyst numbers 3, 4, and 5. Argon beam was | | used for hemostasis around the cut margins of the cyst. | | | | Nest, our attention was turned toward the large cyst in the dominant lobe | | of the liver. These were readily visualized on the | | computed tomography scan as involving the right lobe with the largest | | measuring 10 x 12 cm with a small adjoining cyst next to this. To | | facilitate exposure of the right lobe of the liver, the right triangular | | ligaments were taken down with Bovie electrocautery. The right lobe of the | | liver was rotated in a medial orientation, and the attachments divided down | | to the level of the inferior vena cava. The posterior aspect of the liver | | was then packed with lap sponges. The large cyst was identified involving | | segment numbers 5 and 8 of the liver. The cyst wall was excised. This | | cyst unlike the others had evidence of old dark blood present within the | | cyst, 10 mL of this was sent for Gram's stain and cytology. Remainder of | | the cyst was aspirated. The cyst wall itself was excised with Bovie | | electrocautery leaving approximately 0.5-cm margin of cyst wall to | | facilitate marsupialization. This was excised in a circumferential manner. | | In addition, the cyst adjoining segment 7 of liver immediately adjacent to | | this cyst was excised by Bovie electrocautery. A small septum between the | | cyst was excised, and both cyst bardales as well as intervening septum were | | sent for permanent pathology. The now combined defect, comprised of both | | cysts, was instilled with 75% ethanol for a 5-minute duration. The ethanol | | was removed by suctioning it free and clear. Very carefully the bardales of | | the cyst were debrided with the a Kitner sponge. The free edge of the | | transected cyst was then marsupialized with 3-0 Prolene suture. Again, a | | running horizontal mattress fashion was used to facilitate this. A | | horizontal drill through the free edge of the cyst wall was then secured | | approximately 1 cm beyond the free edge to the fibrotic interior cyst wall. | | This was done over and over in a running fashion resulting in imbrication | | of the cut edge of the cyst wall resulting in a nice marsupialization in a | | circumferential manner. | | | | Three other small cysts were identified at the posterior aspect of segment | | 6 of liver. These were simply unroofed with Bovie electrocautery. The | | cyst was found as with all the others with the exception of the large | | dominant cyst in segment 5 and 8 to have clear serous fluid. | | | | At this point, the right upper quadrant including the multiple cysts were | | irrigated with warm normal saline until the effluent returned clean and | | clear. Hemostasis was achieved with argon beam coagulation both at the | | divided triangular ligaments on the right and the diaphragm where the cyst | | was inflamed and adherent to the diaphragm. Each of the cyst cavities were | | inspected and found to be hemostatic. | | | | A #19 round TIMOTHY drain was brought out through a stab wound at the inferior | | margin of the right subcostal incision. A Anthony drain was placed in the | | posterior to the liver adjacent to the inferior vena cava. We secured it | | to the skin with a 3-0 nylon suture and placed a bulb suction. | | | | The abdominal incision was then closed in layers. This was done with #1 | | Maxon sutures. First the subcostal aspect of the incision was closed. The | | intersection of the vertical midline extension as well as the left and | | right subcostals was reapproximated with a #1 Maxon suture to properly | | orient the 3 aspects of the incision. Next, the posterior fascial layers | | of the right and left subcostal incisions were closed with running #1 Maxon | | sutures. The anterior fascial layers were then closed with a running #1 | | Maxon. The vertical midline incision was next closed with a single running | | #1 Maxon in the avascular plane. The incisions were irrigated, and the | | skin closed with interrupted rufino. | | | | The incision was covered with 4 x 4 flats and sterile dressings. At the | | end of the procedure, all needle, sponge, and instrument counts were | | correct. | | | | Dr. Katie Callahan was scrubbed and present for the entire duration of the | | procedure. | | | | | | | | | | Raymond Hansen MD | | General Surgery Resident | | | | | | | | Katie Callahan M.D. | | Upper And Bottom Lacer Hand | | Division of Liver and Pancreas Transplantation | | | | MJ / HS | | [id number] / [id number] / [id number] / | | | | | | | | cc: | | | | Dilip Frias M.D. | | [address] | | [place] [address] | | | | Dr.Norman Beebe | | Kirsten Pipe Coverer And Insulator | | [address] | | [place] [address] | | | | | | Electronically signed by Katie Callahan 07-25-2004 03:38:43 PM | + + documented in this encounter Visit Diagnoses Not on filedocumented in this encounter"
--- OUTSIDE RECORDS SUMMARY | ~2020-05-04 | XMS | Encounter Summary ---
Demographics + + + | Address | [address] | | | [place] [address] | + + + | Home Phone [...] + | Gene Gee | ECON | [address] | | | | | [place], | | | | | [place] [address] | | + + + + + Care Team Providers + +------+ + | Care Business Banking Manager Name | Role | Phone | + +------+ + | Antony Ribera MD | PCP | | + +------+ + Encounter Details +--------+ + + + + | Date | Type | Department | Care Team | Description | +--------+ + + + + | 10/02/ | Hospital | Pulmonary Function | Tech, Pfl Adult | | | 2017 | Encounter | Lab at [facility] [address] | [address] | | | | | [address] | [facility], | | | | | [place], | [place] [address] | | | | | 3rd floor [place], | | | | | | [place] [address] | | | | | | [phone] | | | +--------+ + + + [...] | | 0 | | | | #[id number] | daily. | | | | | [...] | SPIROMETRY BEFORE / | Routin | 10/02/2016 | Moderate | Results for this | | AFTER BRONCHODIL, | e | 10:57 AM | persistent asthma | procedure are in the | | PULM FUNCTION LAB | | PDT | with acute | results section. | | | | | exacerbation | | + +--------+ + + + documented in this encounter Results SPIROMETRY BEFORE / AFTER BRONCHODIL, PULM FUNCTION LAB (10/02/2016 10:57 AM PDT) + + + + + + | Component | Value | Ref Range | Performed | Pathologist | | | | | At | Signature | + + + + + + | PULMONARY | Name: ADRIANA BAXTER Manda | | [facility] | | | INTERPRETAT | ID: [id number]: | | SPECIAL | | | ION [...] + + + + + + | [id number]% | 0.98 | 1.82 L/sec | [facility] | | | PRE | | | SPECIAL | | | | | | DIAGNOSTICS | | | | | | - | | | | | | PULMONARY | | | | | | FUNCTION | | + + + + + + | [id number]% | 53 | % | [facility] | | | PRE (%REF) | | | SPECIAL | | | | | | DIAGNOSTICS | | | | | | - | | | | | | PULMONARY | | | | | | FUNCTION | | + + + + + + | [id number]% | 1.27 | 1.82 L/sec | [facility] | | | POST | | | SPECIAL | | | | | | DIAGNOSTICS | | | | | | - | | | | | | PULMONARY | | | | | | FUNCTION | | + + + + + + | LQS31-29% | 69 | % | [facility] | [...] | + + + + + | [facility] | [address] | [place], [place] | | | DIAGNOSTICS - | [place]T | [address] | | | PULMONARY FUNCTION | | | | + + + + + documented in this encounter Visit Diagnoses + + | Diagnosis | + + | Moderate persistent asthma with acute exacerbation | + + documented in this encounter"
--- OUTSIDE RECORDS SUMMARY | ~2020-05-04 | XMS | Encounter Summary ---
Demographics + + + | Address | [address] | | | [place] [address] | + + + | Home Phone [...] + | Gene Gee | ECON | [address] | | | | | [place], | | | | | [place] [address] | | + + + + + Care Team Providers + +------+ + | Care Mortgage Loan Processor Name | Role | Phone | + +------+ + | Antony Ribera MD | PCP | | + +------+ + Reason for Referral PROC - Dept/Practice Procedure (Routine) +--------+--------+ + + + + | Status | Reason | Specialty | Diagnoses / | Referred By | Referred To | | | | | Procedures | Contact | Contact | +--------+--------+ + + + + | Closed | | Plastic | Diagnoses | Alla, | Pls | | | | Surgery | Acquired | Hemangini J, | Gen/Recon | | | | | absence of | [address] | [address] | | | | | breast and | [address] | [address] | | | | | nipple | [address] | [facility] | | | | | Malignant | [place], | Health and | | | | | neoplasm of | [place] [address] | Healing, | | | | | breast | Phone: | Building 1, | | | | | (female), | [phone] | 5th Floor | | | | | unspecified | Fax: | [place], [place] | | | | | site | [phone] | [address] | | | | | Disproportio | | Phone: | | | | | n of | | [phone] | | | | | reconstructe | | | | | | | d breast | | | | | | | Procedures | | | | | | | REQUEST TO | | | | | | | SURGERY | | | | | | | AUTOMOBILE SALES CONSULTANT | | | +--------+--------+ + + + + Reason for Visit + + + | Reason | Comments | + + + | Follow-up visit | FU minor R nipple/areola tattooing | + + + Consultation (Routine) +--------+--------+ [...] | | | | | Carcinoma | [facility] | | | | | | in situ of | for Health | | | | | | breast | and Healing, | | | | | | Acquired | Building 2 | | | | | | absence of | [place], | | | | | | breast and | [place] | | | | | | nipple | [address] | | | | | | Procedures | Phone: | | | | | | CONSULT TO | [phone] | | | | | | SURGERY - | Fax: | | | | | | PLASTICS | [phone] | | +--------+--------+ + + + + Encounter Details +--------+---------+ + + + | Date | Type | Department | Care Team | Description | +--------+---------+ + + + | 07/21/ | Office | Plastic and | Errol Gold | Acquired absence of | | 2013 | Visit | Reconstructive | MD [address] | breast and nipple | | | | Surgery at [facility] [address] | (Primary Dx); | | | | [facility] | [address] [place], [place] | Malignant neoplasm | | | | for Health and | [phone] | of breast (female), | | | | Healing, Building 1, | | unspecified site; | | | | 5th Floor | | Disproportion of | | | | [place], [place] | | reconstructed breast | | | | [address] | | | | | | [phone] | | | +--------+---------+ + + + [...] +---------+ + + | Blood Pressure | 130/63 | 07/21/2013 12:56 PM | | | | | PST | | + +---------+ + + | Pulse | 81 | 07/21/2013 12:56 PM | | | | | PST | | + +---------+ + + | Temperature | - | - | | + +---------+ + + | Respiratory Rate | 16 | 07/21/2013 12:56 PM | | | | | PST | | + +---------+ + + | Oxygen Saturation | 100% | 07/21/2013 12:56 PM | | | | | PST | | + +---------+ + + | [...] Progress Notes Alla Buchanan, Errol J - 07/21/2013 2:29 PM PSTPlastic and Reconstructive Surgery Follow-up History of Present Illness: Adriana Flynn is a 67 y.o. female presents today status-post r ight nipple tattoo on June 06, 2013. She has been doing well. Happy with result. Physical Exam: Vitals: BP 130/63 | Pulse 81 | RR 16 | SpO2 100% General Appearance: Well-developed, well-nourished adult female in no apparent distress. Right nipple with good color retention. Symmetry to natural nipple Left nipple with slight hypopigmentation Impression: Right breast reconstruction, interested in tattoo for contralateral nipple to match color Plan: Left nipple micropigmentation Patient will discuss scheduling options with our coordinator and will schedule surgery at h er convenience. 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
--- OUTSIDE RECORDS SUMMARY | ~2020-05-04 | XMS | Encounter Summary ---
Demographics + + + | Address | [address] | | | [place] [address] | + + + | Home Phone [...] + | Gene Gee | ECON | [address] | | | | | [place], | | | | | [place] [address] | | + + + + + Care Team Providers + +------+ + | Care Business Systems Consultant Name | Role | Phone | + +------+ + | Antony Ribera MD | PCP | | + +------+ + Encounter Details +--------+ + + + + | Date | Type | Department | Care Team | Description | +--------+ + + + + | 02/09/ | MyChart | Endocrinology, | Tapan Horowitz MD | thyroid | | 2009 | Encounter | Diabetes and | [address] | | | | | Clinical Nutrition | [address] [place], | | | | | [address] | [place] [address] | | | | | Loop Mailcode: [facility] | [phone] | | | | | Outpatient Clinic | | | | | | Building [place], | | | | | | [place] [address] | | | | | | [phone] | | | +--------+ + + + [...]
--- OUTSIDE RECORDS SUMMARY | ~2020-05-04 | XMS | Encounter Summary ---
Demographics + + + | Address | [address] | | | [place] [address] | + + + | Home Phone [...] + | Gene Gee | ECON | [address] | | | | | [place], | | | | | [place] [address] | | + + + + + Care Team Providers + +------+ + | Care Roller Skater Name | Role | Phone | + [...] as of this encounter Progress Notes Interface, Plaster Form Maker In - 02/12/2005 12:13 AM PDT [id number] JONATHANPARK AGU[facility] Date: 10/11/2004 Clinic: [facility] PRIMARY CARE PHYSICIAN Dr. Saman Beebe. History of present illness : This is a 58-year-old female with a history of SVT, Sjogren's disease, mitral valve prolapse, asthma, fibromyalgia, and liver cyst who presents for a followup appointment from July 2004. The patient is seen by a Cardiology consult team in July 2004 after abdominal surgery in June 2004 in which she developed a postoperative atrial tachycardia. The patient at that time was on amiodarone and digoxin since June 2004. Upon seeing the patient in Cardiology Clinic in July 2004, digoxin and amiodarone was discontinued. The patient was started on atenolol 25 mg p.o. daily. The patient states that she is feeling better. She has not had any partial SBOs. She is gaining more weight and tolerating p.o. intake. The patient states that she has had 3 to 4 hard spells a week, they only lasts for a second, there is no symptoms associated such as lightheadedness or presyncopal events. The patient states they have been increasing in frequency over the last several months, and she has thus continued her amiodarone and digoxin. The patient also states that she has a stress echo performed for a periodic chest pain; currently, the patient denies any chest pain upon exertion. Past Medical History: Please refer to note on August 09, 2004, for past medical history. Medications: 1. Estrace 0.75 mg patch. 2. Protonix 40 mg p.o. daily. 3. MDI, Combivent, Serevent, Pulmicort and Flonase. 4. Atenolol 25 mg p.o. daily. Review of systems: Negative except for this expressed in history of present illness. Vital Signs: Blood pressure 108/60, pulse of 77, the patient has 100% on room air. Weight is 137.4 pounds. Age is 58. General: The patient was alert and appropriately responsive to questioning, interactive. HEENT: Normal. JVP collapses appropriately. Neck: Elevated. Cardiovascular: S1 and S2. Respirations: Clear to auscultation bilaterally. Abdomen: Positive bowel sounds, nontender, with a healing scar across her abdomen, no purulent or erythema from scar. Extremities: No clubbing, cyanosis, or edema. Assessment and Plan: This is a 58-year-old female with a history of SVT who is status post, a partial small bowel obstruction and abdominal surgery in June 2004. 1. Supraventricular tachycardia. 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 We will increase the patient's atenolol to 50 mg p.o. daily. The patient will undergo an elective electrophysiology study in December 2004. Discussed with the patient the risks associated with the electrophysiology study and the possibility of being able to find an irritable focus; if irritable focus is able to be located, there is 80% to 90% cure of ablating that focus. 2. Cardiac re-stratification. The patient stress echocardiogram preliminary is read as negative. The patient obtained 94% of heart rate, several episodes of some SVT but no wall motion abnormalities were noted. The patient was staffed with Dr. Gary Fuentes. She will return to clinic and will be scheduled for an EP procedure in December 2004. Declan Munoz M.D. / FRANCA [id number] / [id number] / [id number] / [id number] cc: Saman Beebe M.D. [address] [place] [address] Electronically signed by Gary Fuentes 10-18-2004 07:44:05 PM documented i n this encounter Plan of Treatment Not on filedocumented as of this encounter Visit Diagnoses Not on filedocumented in this encounter"
--- OUTSIDE RECORDS SUMMARY | ~2020-05-04 | XMS | Encounter Summary ---
Demographics + + + | Address | [address] | | | [place] [address] | + + + | Home Phone [...] + | Gene Gee | ECON | [address] | | | | | [place], | | | | | [place] [address] | | + + + + + Care Team Providers + +------+ + | Care Sports Analyst Name | Role | Phone | [...] | | | Procedures | [address] | | | | | CT ABDOMEN | [facility] | [address] [facility] | | | | | [address] | [address] | [facility], | | | | | CONTRAST | [place], [place] | [facility] Floor | | | | | | [address] | [place], [place] | | | | | | Phone: | [phone] | | | | | | [phone] | Phone: | | | | | | Fax: | [phone] | | | | | | [phone] | Fax: | | | | | | | [phone] | +--------+--------+ + + + + Reason for Visit Diagnostic Testing (Routine) +--------+--------+ + + + + | Status | Reason | Specialty | Diagnoses / | Referred By | Referred To | | | | | Procedures | Contact | Contact | +--------+--------+ + + + + | Closed | | Radiology | Diagnoses | Sindy, | Rad Ct Scan | | | | | Liver cyst | MD Katie | [place] [address] | | | | | Procedures | [address] | [address] | | | | | CT ABDOMEN | [facility] | [address] | | | | | [address] | [address] | [facility], | | | | | CONTRAST | [place], [place] | [facility] Floor | | | | | | [address] | [place], [place] | | | | | | Phone: | [phone] | | | | | | [phone] | Phone: | | | | | | Fax: | [phone] | | | | | | [phone] | Fax: | | | | | | | [phone] | +--------+--------+ + + + + Encounter Details +--------+ + + + + | Date | Type | Department | Care Team | Description | +--------+ + + + + | 05/03/ | Hospital | Diagnostic Imaging | | | | 2011 | Encounter | Services at [facility] | | | | | | [address] | | | | | | [address] [place] | | | | | | [address] | | | | | | [place], [place] | | | | | | [address] | | | | | | [phone] | | | +--------+ + + + [...] documented as of this encounter Procedure Urvashi Strong Faculty - 05/21/2012 1:32 PM PSTAssociated Order(s): PROCEDURE NOTEElectronically s igned by Gisele Strong at 05/21/2012 1:32 PM PSTdocumented in this encounter Plan of Treatment Not on filedocumented as of this encounter Procedures + +--------+ + + + | Procedure Name | Priori | Date/Time | Associated Diagnosis | Comments | | | ty | | | | + +--------+ + + + | PROCEDURE NOTE | Routin | 08/20/2015 | | Results for this | | | e | 12:40 AM | | procedure are in the | | | | PST | | results section. | + +--------+ + + + | CT ABDOMEN WWO IV | Routin | 05/03/2012 | Liver cyst | Results for this | | CONTRAST | e | 12:41 PM | | procedure are in the | | | | PDT | | results section. | + +--------+ + + + | CREATININE, POC | Routin | 05/03/2012 | | Results for this | | | e | 12:21 PM | | procedure are in the | | | | PDT | | results section. | + +--------+ + + + documented in this encounter Results PROCEDURE NOTE (08/20/2015 12:40 AM PST) + + | Transcriptions | + + | Other, Faculty - 05/21/2012 1:32 PM PST | + + CT ABDOMEN WWO IV CONTRAST (05/03/2012 12:41 [...] Carol | | | | | | eDclan Santos I have | | | | [...] | | + +---------+ + + | [facility] DEPARTMENT OF | | | | | RADIOLOGY | | | | + +---------+ + + ROUTINE CHEMISTRY TESTS (RADIOLOGY), POC (05/03/2012 12:21 PM PDT) + +-------+ + + + | Component | Value | Ref Range | Performed | Pathologist | | | | | At | Signature | + +-------+ + + + | BUN, POC | 14 | 6 - 20 mg/dL | [facility] - | | | | | | [facility] | | | | | | [facility] | | | | | | OF CARE | | | | | | TESTS | | + +-------+ + + + | CREATININE, | 0.9 | 0.6 - 1.1 mg/dL | [facility] - | | | POC | | | [facility] | | | | | | [facility] | | | | | | OF CARE | | | | | | TESTS | | + +-------+ + + + + + | Specimen | + + | | + + + + + + + | Performing | Address | City/State/Zipcode | Phone Number | | Organization | | | | + + + + + | [facility] | [address] | [place], [place] | | | [facility] | [address] | [address] | | | TESTS | | | | + + + + + documented in this encounter Visit Diagnoses + + | Diagnosis | + + | Liver cyst Other specified disorders of liver | + + documented in this encounter"
--- OUTSIDE RECORDS SUMMARY | ~2020-05-04 | XMS | Encounter Summary ---
Demographics + + + | Address | [address] | | | [place] [address] | + + + | Home Phone [...] Author | [facility] | + + + | Organization | [facility] | + + + | Address | Unknown | + + + | Phone | Unavailable | + + + Support + + + + + | Name | Relationship | Address | Phone | + + + + + | Gene Gee | ECON | [address] | | | | | [place], | | | | | [place] [address] | | + + + + + Care Team Providers + +------+ + | Care Bid Analyst Name | Role | Phone | + +------+ + | Antony Ribera MD | PCP | | + +------+ + Encounter Details +--------+---------+ + + + | Date | Type | Department | Care Team | Description | +--------+---------+ + + + | 04/19/ | Office | Cardiology | Elijah Whalen, | Atrial tachycardia | | 2016 | Visit | Arrhythmia at [facility] | [address] | ([facility]) (Primary Dx) | | | | [address] | [address] | | | | | [facility] | [place], [place] | | | | | and Healing, | [address] | | | | | | [phone] | | | | | Floor [place], [place] | | | | | | [address] | | | | | | [phone] | | | +--------+---------+ + + + [...] + + + | Blood Pressure | 140/68 | 04/19/2016 1:31 PM | | | | | PDT | | + + + + + | Pulse | 67 | 04/19/2016 1:31 PM | | | | | PDT | | + + + + + | Temperature | 36.5 C (97.7 F) | 04/19/2016 1:31 PM | | | | | PDT | | + + + + + | Respiratory Rate | - | - | | + + + + + | Oxygen Saturation | 97% | 04/19/2016 1:31 PM | | | | | PDT | | + + + + + | Inhaled Oxygen | - | - | | | Concentration | | | | + + + + + | Weight | 70.8 kg (156 lb) | 04/19/2016 1:31 PM | | | | | PDT | | + + + + + | Height | 167.6 cm (5' 6") | 04/19/2016 1:31 PM | | | | | PDT | | + + + + + | Body Mass Index | 25.18 | 04/19/2016 1:31 PM | | | | | PDT | | + + + + + documented in this encounter Patient Instructions Patient Instructions Elijah Whalen MD - 04/19/2016 2:04 PM PDT1 - Stop dofetilide (kings syn) 2 - If you have recurrent notable palpitations, go to Dr. Ribera's office for a 12-lead ECG. If their machine can do it, have them run a "rhythm strip" of several pages as well 3 - In 6 mos (or sooner if you are having worsened palpitations), call my office to get a 3 0-day event monitor. If we detect no atrial fibrillation and no notable atrial tachycardia, I don't need to see you for a year Elijah Whalen MD Cardiovascular Medicine - Electrophysiology [facility] Cardiovascular [place] at [facility] Electronically signed by Elijah Whalen MD at 11/2015 2:09 PM PDT documented in this encounter Progress Notes Elijah Whalen MD - 04/19/2016 2:10 PM PDTFormatting of this note might be different fro m the original. Arrhythmia Clinic Follow-up S: Ms. Flynn is here for follow-up with her Deepak. She notes daily mild palpitation s that are not too bothersome. No sustained palpitations. No chest/arm/neck discomforts, ort hopnea, PND, lower extremity edema, palpitations, light-headedness or syncope. Past Medical History Diagnosis Date Sjogrens syndrome (HCC) 1995 Fibromyalgia 1995 Mitral valve prolapse 1989 GERD (gastroesophageal reflux disease) 1995 Asthma 1999 TMJ (dislocation of temporomandibular joint) Fibrocystic disease of breast 1978 Diverticul disease small and large intestine, no perforati or abscess Skin cancer back Small bowel obstruction (HCC) 07/20,10/19,02/19 Atrial tachycardia 07/20 also episode in setting of Ryde virus in 05/2012 which was thougth to be AF, but likel y just AT. Bursitis 2006 Plantar fascial fibromatosis 2007 plantar fascial tear Osteopenia 12/30/2007 Breast cancer (HCC) 02/2007 s/p chemo with taxotere/cytoxan Shingles Pulmonary embolus (HCC) 09/2008 Deep vein thrombosis of lower extremity (HCC) Atrial tachycardia RA stacey tach ablated 2004 at [facility]. Repeat EPS showed only non-sustained left atrial tac hycardia Patient Active Problem List Diagnosis Date Noted Asthma 02/03/2014 Extrinsic asthma 10/27/2012 Overview Note: ICD10 History of DVT (deep vein thrombosis) 06/26/2012 Thyroid nodule 12/29/2008 Overview Note: May 2011 US: Scattered sub-cm nodules December 2008 US: 5 mm Right cyst Sjogren's syndrome (HCC) 09/08/2008 Breast cancer (HCC) 05/21/2008 Disorder of bone and cartilage 12/30/2007 Overview Note: Reclast [id number] DXA 06/02/15: L -1.6 H -1.9 DXA 06/06/13; L -1.6 H -1.9 DXA 04/28/11: L -1.8 H -1.8 DXA 01/27/10: L -1.9 H -1.6 DXA 12/28/08: L -1.9 H -1.5 Acquired absence of breast and nipple 03/27/2007 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 Intestinal/congestion. Cardizem [Diltiazem Hcl] Hives Crestor [Rosuvastatin Calcium] muscle/Jt Pain Albuterol Tachycardia and Unknown Celebrex [Celecoxib] Diarrhea, Cough and Unknown Flecainide Unknown Propafenone Unknown Intestinal distress. Tape Adherent Rash Triamterene-Hydrochlorothiazid Unknown BREAST LUMPS BREAST LUMPS Current Outpatient Prescriptions Medication Sig albuterol (PROAIR [...] into each nostril three roxie es daily. [facility][id number] 300-250 million cell-mg oral capsule Take by mouth once daily. levalbuterol 45 mcg/actuation inhalation HFA aerosol inhaler Inhale 1-2 puffs by mouth every six hours as needed. loratadine 10 mg oral tablet Take 10 mg by mouth once daily. LORAZEPAM 1 mg Oral tablet 0.5 Tabs Q HS PRN. Methylcellulose, Laxative, (CITRUCEL) Oral Powder Take by mouth. metoprolol tartrate 50 mg oral tablet Take 75mg TID. May take an additional 25mg PRN p alpitations montelukast 10 mg oral tablet Take 1 tablet by mouth once daily. MULTIVITAMIN OR one daily ofloxacin 0.3 % [...] ROS as above, otherwise negative O: BP 140/68 | Pulse 67 | Temp 36.5 C (97.7 F) | Ht 1.676 m (5' 6") | Wt 70.761 kg (156 lb) | SpO2 97% | BMI 25.19 kg/(m^2) Heart: RRR without murmur rub or gallop. Normal S1 and S2. CVP normal by neck veins. Lungs: clear to auscultation bilaterally Abdomen: soft, NT/ND without bruits or organomegally. Extremities: warm without edema. Assessment: 1 - Atrial tachycardia - S/p successful ablation of stacey tach 2004. Seconed EPS for recurrent PSVT showed only non-sustained LA tach - Did not tolerate Class Ic agent. Successfully suppressed with dofetilide 2 - Questionable history of atrial fibrillation. - Patient reports an opthalmologist told her she had clearly had atrial fibrillation ada g an eye surgery, but there are no rhythm strips to confirm and it can be very difficult to distinguish atrial fibrillation from atrial tachycardia (particularly if more than one focus ) without 12-lead ECG -12-lead ECG from Dr. Ribera shows sinus rhythm with normal QTc (though hard to distinguish since she has very small P waves and there was some baseline artifact) 3 - History of DVT/PE during treatment for cancer. Reportedly considered as "provoked" and therefore warfarin has been discontinued We discussed different options for management of her PSVT and for diagnosing or ruling out atrial fibrillation. She agreed to discontinuing dofetilide Recommendations/Plans: 1 - Stop dofetilide 2 - If she has recurrent bothersome palpitations, she will get a 12-lead ECG and possible 1 2-lead rhythm strip at Dr. Ribera's office or local ED 3 - With bothersome palpitations we will also order a 30-day event monitor to evaluate for multiple arrhythmias 4 - Even if no sustind palpitations, I would like to do a surveillance 30-day monitor after 6 mos to look for asymptomatic atrial fibrillation If she is doing well I'll see her in 1 year. Elijah Whalen MD Cardiovascular Medicine - Electrophysiology [facility] Cardiovascular [place] at [facility] documented in this en counter Plan of Treatment Not on filedocumented as of this encounter Procedures + +--------+ + + + | Procedure Name | Priori | Date/Time | Associated Diagnosis | Comments | | | ty | | | | + +--------+ + + + | 12 LEAD ECG | Routin | 04/19/2016 | Atrial tachycardia | Results for this | | | e | 1:42 PM | ([facility]) | procedure are in the | | | | PDT | | results section. | + +--------+ + + + documented in this encounter Results 12 LEAD ECG (04/19/2016 1:42 PM PDT) + + + + + + | Component | Value | Ref Range | Performed | Pathologist | | | | | At | Signature | + + + + + + | VENTRICULAR | 66 | bpm | [facility] | | | RATE | | | OF | | | | | | CARDIOLOGY | | + + + + + + | ATRIAL RATE | 66 | ms | [facility] | | [...] + | P AXIS | 72 | deg | [facility] | | | | | | OF | | | | | | CARDIOLOGY | | + + + + + + | QRS | 90 | ms | [facility] | | | DURATION | | | OF | | | | | | CARDIOLOGY | | + + + + + + | QT | 468 | ms | [facility] | | | | | | OF | | | | | | CARDIOLOGY | | + + + + + + | QTC-BAZETT | 491 | ms | [facility] | | | | | | OF | | | | | | CARDIOLOGY | | + + + + + + | R AXIS | -14 | deg | [facility] | | | | | | OF | | | | | | CARDIOLOGY | | + + + + + + | T AXIS | 21 | deg | [facility] | | | | | | OF | | | | | | CARDIOLOGY | | + + + + + + | ECG | SINUS RHYTHM | | [facility] | | | IMPRESSION | | | OF | | | | | | CARDIOLOGY | | + + + + + + | ECG | BORDERLINE T | | [facility] | | | IMPRESSION | ABNORMALITIES, ANTERIOR | | OF | | | | LEADS | | CARDIOLOGY | | + + + + + + | ECG | PROLONGED QT INTERVAL - | | [facility] | | | IMPRESSION | BORDERLINE ECG - | | OF | | | | | | CARDIOLOGY | | + + + + + + | ECG | Electronically signed | | [facility] | | | IMPRESSION | by: MIK CATALAN | | OF | | | | 04-19-2016 21:24:29 | | CARDIOLOGY | | + + [...] + + + + + | [facility] | [address] | [place], [place] | | | CARDIOLOGY | [address] | [address] | | + + + + + documented in this encounter Visit Diagnoses + + | Diagnosis | + + | Atrial tachycardia (HCC) - Primary Other specified cardiac dysrhythmias | + + documented in this encounter
--- OUTSIDE RECORDS SUMMARY | ~2020-05-04 | XMS | Encounter Summary ---
Demographics + + + | Address | [address] | | | [place] [address] | + + + | Home Phone | | + + + | Preferred Language | Unknown | + + + | Marital Status | | + + + | Presybeterian Affiliation | 1013 | + + + | Race | White | + + + | Ethnic Group | Not or | + + + Author + + + | Author | [facility] | | | and [place] | + + + | Organization | [facility] | | | [...] Team Providers + +------+ + | Care Chlorination Operator Name | Role | Phone | + +------+ + | Alec Hill MD | PCP | | + +------+ + Reason for Visit + +--------+ + | Reason | Onset | Comments | | | Date | | + +--------+ + | Medication Question | 10/22/ | | | | 2020 | | + +--------+ + Encounter Details +--------+ + + + + | Date | Type | Department | Care Team | Description | +--------+ + + + + | 10/22/ | Telephone | [facility] | Enma Nielson, | Medication Question | | 2019 | | CARDIOLOGY [place] | [facility] | | | | | [address] | | | | | | [place], [place] | | | | | | [address] | | | | | | [phone] | | | +--------+ + + + [...] this encounter Miscellaneous Notes Telephone Encounter - Matias Middleton FNP - 10/23/2019 1:22 PM PDTIn consultatio n with Dr Kelley we will stop the hydralazine at this time. Spoke with pt and she is agreeabl e to that plan. Will let us know if she has any more concerns. elephone Encounter - Enma Nielson CMA - 10/23/2019 11:59 AM PDTPatient called said she is having a reaction to the new medication . She started the medication by taking 1 per day that made her extremely dizzy. She layed o ff for a few days and then only took half she handled it well. For 2-3 days she took 3/4 of a pill. she went back to 2 pills and she felt dizzy almost passed out, she had to lay down. 10-22-2019 11:00 am 90/54 64bpm 11:30 120/62 73bpm Patient would like to talk about a possible medication change. Thanks! documented in this en counter Plan of Treatment +--------+ + + + + | Date | Type | Specialty | Care Team | Description | +--------+ + + + + | 05/19/ | Office | Orthopedic Surgery | Tee Choi, | | 2019 | Visit | | [address] | | | | | | [place] [address] | | | | | | [phone] | | | | | | | | +--------+ + + + + | 05/19/ | Appointment | Cardiology | Martin Kelley, | | 2019 | | | MD [address] | | | | | | [place] | | | | | | [place] [address] | | | | | | [phone] | | | | | | | | +--------+ + + + + | 11/26/ | Office | Cardiology | Martin Kelley, | | | 2020 | Visit | | MD [address] | | | | | | [place], | | | | | | [place] [address] | | | | | | [phone] | | | | | | | | +--------+ + + + + documented as of this encounter Visit Diagnoses Not on filedocumented in this encounter"
--- OUTSIDE RECORDS SUMMARY | ~2020-05-04 | XMS | Encounter Summary ---
Demographics + + + | Address | [address] | | | [place] [address] | + + + | Home Phone | | + + + | Preferred Language | Unknown | + + + | Marital Status | | + + + | Oriental Orthodox Affiliation | CHR | + + [...] + | Gene Gee | ECON | [address] | | | | | [place], | | | | | [place] [address] | | + + + + + Care Team Providers + +------+ + | Care Boring Machine Operator Helper Name | Role | Phone | + +------+ + | Alec Hill MD | PCP | | + +------+ + Encounter Details +--------+ + + + + | Date | Type | Department | Care Team | Description | +--------+ + + + + | 03/19/ | Ancillary | Registration [address] | [facility], | | | 2006 | Registratio | Dereck Lipscomb | [address] | | | | n | [address] Mailcode: [id number] | [place], [place] | | | | | [place], [place] | [address] | | | | | [address] | [phone] | | | | | [phone] | | | +--------+ + + + [...]
--- OUTSIDE RECORDS SUMMARY | ~2020-05-04 | XMS | Encounter Summary ---
Demographics + + + | Address | [address] | | | [place] [address] | + + + | Home Phone [...] + | Gene Sahil | ECON | [address] | | | | | [place], | | | | | [place] [address] | | + + + + + Care Team Providers + +------+ + | Care Arnp Name | Role | Phone | + +------+ + PCP | Unavailable | + +------+ + Encounter Details +--------+ + + + + | Date | Type | Department | Care Team | Description | +--------+ + + + + | 12/16/ | Procedure - | | Report, Cardiac | Cardiac Cath | | 2005 | | | Cath | | | | Transcribed | | [...] as of this encounter Progress Notes Interface, Bar Manager In - 07/25/2005 5:30 AM PST [id number] 12/16/2004 [id number] SAHIL Holman Patient Name: Adriana BAXTER Patient Data: Height 168 cm Weight 61.7 kg BSA 1.70 m2 Date of Procedure: December 16, 2004 : 1945 Physician: Gary Fuentes M.D. Professor, Medicine Division of Cardiology Miguel Lipscomb M.D. Fellow, Clinical Cardiac Electrophysiology Referring Physician: Gary Fuentes M.D. Primary Physician: Jesu Ribera M.D. [address] [place] [address]. [address] [place] [address] PROCEDURE(S) PERFORMED: 1. Complete electrophysiology study. 2. Left atrial pacing and recording. 3. Three-dimensional mapping. 4. Attempt to induce arrhythmias with pharmacologic agents. 5. Ablation of a focal atrial tachycardia emanating from lateral tricuspid annulus/mid stacey terminalis region. 6. Ablation of a second focus close to 2 o'clock on the tricuspid annulus. INDICATIONS: The patient is a 59-year-old female with a history of documented atrial tachycardias, most recently in July 2004, after abdominal surgery. The patient states having daily symptoms of palpitations. The patient was deemed to be a candidate for electrophysiology study and ablation. TOTAL FLUOROSCOPY TIME: 17.49 minutes PROCEDURE NARRATIVE: Informed consent was obtained from an awake, alert patient. The patient was brought to the Electrophysiology Laboratory in a postabsorptive state. Bilateral groins were prepped and draped in a sterile fashion. Lidocaine 1% was infiltrated in bilateral groins, and the patient was administered fentanyl and Versed for moderate sedation. Percutaneous access was obtained in bilateral femoral veins, and an 8 Fr sheath and a 7 Fr sheath were inserted in the right femoral vein, and two 7 Fr sheaths were inserted in the left femoral vein, all via modified Seldinger technique. A Neyda catheter was inserted into the right heart, and initially, the coronary sinus os was cannulated with a Neyda catheter. A hexapolar deflectable catheter was inserted into a His position. A decapolar deflectable catheter was inserted into a coronary sinus position. A Sasha catheter was inserted into a high right atrial position. The Neyda catheter was then repositioned into a right ventricular position. Baseline intervals were measured. ELECTROPHYSIOLOGY TESTING: At baseline, the patient was in sinus rhythm with normal AH and HV intervals. There was no evidence of preexcitation. With right ventricular pacing, there was evidence of ventriculoatrial block, even at a cycle length of 500 msec. With right atrial pacing and single extrastimuli, there was no evidence of dual atrioventricular node physiology, and initial attempts to induce a tachycardia with both single and double extrastimuli and straight atrial pacing were unsuccessful. The patient was administered 1 mcg/min of isuprel, and with rapid atrial pacing, there was induction of a nonsustained atrial tachycardia. The activation of the tachycardia appeared to be from proximal to distal on the coronary sinus catheter. There were attempts to induce the rhythm also with left atrial pacing as well. MAPPING AND RADIOFREQUENCY ABLATION: The 8 Fr sheath was exchanged for a 9 Fr sheath via modified Seldinger technique. The Ensite Array was prepped in the standard fashion, and a long wire was advanced to the level of the superior vena cava. The Ensite Array was advanced into a right atrial position and was deployed and filled with a solution of saline and contrast. The location of the Array was confirmed by fluoroscopy. The Neyda catheter was removed and was replaced with a 7 Fr, D curve, 5-mm, braided thermistor ablation catheter. The catheter was advanced into the right atrium, and in conjunction with the Ensite Array, a three-dimensional replica of the right atrium was created. Thus mapping was performed, and after the right atrial shell was created, we again attempted to induce the rhythm. We were able to induce nonsustained atrial tachycardia, and three-dimensional mapping was performed, and interestingly, the sinus node in this patient was mapping more anteriorly than expected. A focal atrial tachycardia was identified in the lateral tricuspid annulus/mid stacey terminalis region. This region was targeted for radiofrequency ablation, and the patient had approximately 10 applications of radiofrequency targeting this region. Afterwards the patient was paced again with left atrial pacing, and the patient had evidence of another nonsustained tachycardia focus. The atrial activation pattern appeared to be consistent with an atrial flutter, and on our three-dimensional map, it did appear that the rhythm was traveling counterclockwise around the tricuspid annulus. However, it did not appear to cross the isthmus on our three-dimensional map. The earliest atrial activation for this second tachycardia was at approximately 2 o'clock on the tricuspid annulus. Additional applications of radiofrequency were delivered at this location, and afterwards the patient did still have some nonsustained tachycardia from this location. However, the patient did not have any further episodes of tachycardia induced from the original stacey terminalis location. After the Ensite Array was deployed, the patient was fully anticoagulated, and we attempted to keep activated clotting times above 250 seconds during that portion of the case. DISPOSITION: The ablation catheter, His catheter, and coronary sinus catheter were removed from the body, and the Ensite Array was carefully deflated under fluoroscopic guidance and also was removed from the body. The sheaths were removed, and hemostasis was obtained by manual compression and a pressure dressing. The patient left the Electrophysiology Laboratory in stable condition. COMPLICATIONS: None. IMPRESSION: Status-post successful ablation of a mid stacey terminalis focal atrial tachycardia. The patient also has a suggestion of a counterclockwise atrial flutter, although the second location may represent additional focal atrial tachycardia focus. PLAN: The patient is to recover in the interventional recovery unit. The patient was advised to follow-up with Dr. Fuentes within one month and, for the time being, will continue the atenolol. ATTENDING SURGEON'S ATTESTATION: Pursuant to Federal Medicare Requirements, I certify that Gary Fuentes M.D. was present for the witt elements of the procedure and participated directly in the generation of this report. Miguel Lipscomb M.D. Fellow, Clinical Cardiac Electrophysiology Gary Fuentes M.D. Professor, Medicine Division of Cardiology KRYSTAL/randy Job No. [id number] Electronically signed by Gary Fuentes 12-27-2004 02:22:11 PM documented i n this encounter Plan of Treatment Not on filedocumented as of this encounter Procedures + +--------+ + + + | Procedure Name | Priori | Date/Time | Associated Diagnosis | Comments | | | ty | | | | + +--------+ + + + | CARDIAC CATH | | 12/16/2004 | | | + +--------+ + + + documented in this encounter Visit Diagnoses Not on filedocumented in this encounter"
--- OUTSIDE RECORDS SUMMARY | ~2020-05-04 | XMS | Encounter Summary ---
Demographics + + + | Address | [address] | | | [place] [address] | + + + | Home Phone [...] + | Gene Gee | ECON | [address] | | | | | [place], | | | | | [place] [address] | | + + + + + Care Team Providers + +------+ + | Care Sand Analyst Name | Role | Phone | + +------+ + | Antony Ribera MD | PCP | | + +------+ + Reason for Visit +--------+--------+ + | Reason | Onset | Comments | | | Date | | +--------+--------+ + | Other | 08/05/ | | | | 2014 | | +--------+--------+ + Encounter Details +--------+ + + + + | Date | Type | Department | Care Team | Description | +--------+ + + + + | 08/05/ | MyChart | Cardiology | Gary Fuentes MD | [facility] | 2015 | Encounter | Arrhythmia at [facility] | [address] | episode | | | | [address] | [address] [place], | | | | | [facility] | [place] [address] | | | | | and [place], | [phone] | | | | | [facility] | | | | | | Floor [place], [place] | | | | | | [address] | | | | | | [phone] | | | +--------+ + + + [...] Encounter - Mayra Chapman RN - 08/05/2014 3:02 PM PSTMed list updated. Rx sent. I called and notified pt. 3: 04 PM PSTTelephone Encounter - Mayra Chapman RN - 08/05/2014 2:58 PM PSTFrom: Gary méndez MD Sent: Tuesday August 05, 2014 1:45 PM To: Mayra Chapman RN Message: Felipe Nunez. I talked with Adriana. Let's DC Atenolol and switch to Metoprolol (Tart rate) 50 mg q12 (Can go to 100 q 12 if 50 doesn't work. If that doesn't work we will set her up for an A Tach ablation. She uses [facility] in [place]. Priscilla Vega elephone Encounte r - Mayra Chapman RN - 08/05/2014 10:39 AM PSTPlease see 08/05/14 telephone encounter t oo. Routed to Dr. Fuentes. A M PSTdocumented in this encounter Plan of Treatment Not on filedocumented as of this encounter Visit Diagnoses Not on filedocumented in this encounter"
--- OUTSIDE RECORDS SUMMARY | ~2020-05-04 | XMS | Encounter Summary ---
Demographics + + + | Address | [address] | | | [place] [address] | + + + | Home Phone | | + + + | Preferred Language | Unknown | + + + | Marital Status | | + + + | Mormon Affiliation | 1013 | + + + | Race | White | + + + | Ethnic Group | Not or | + + + Author + + + | Author | [facility] | | | and [place] | + + + | Organization | [facility] | | | [...] Team Providers + +------+ + | Care Political Geographer Name | Role | Phone | + +------+ + | Alec Hill MD | PCP | | + +------+ + Reason for Visit + +--------+ + | Reason | Onset | Comments | | | Date | | + +--------+ + | Medication Refill | 04/11/ | Potassium | | | 2019 | | + +--------+ + Encounter Details +--------+--------+ + + + | Date | Type | Department | Care Team | Description | +--------+--------+ + + + | 04/11/ | Refill | [facility] | Grover Timmons, | Medication Refill | | 2018 | | CARDIOLOGY [place] | Payment Collector | (Potassium) | | | | [address] | | | | | | [place], [place] | | | | | | [address] | | | | | | [phone] | | | +--------+--------+ + + + [...] | | 2019 | Visit | | [address] | | | | | | [place] [address] | | | | | | [phone] | | | | | | | | +--------+ + + + + | 05/19/ | Appointment | Cardiology | Martin Kelley, | | | 2019 | | | MD [address] | | | | | | [place], | | | | | | [place] [address] | | | | | | [phone] | | | | | | | | +--------+ + + + + | 11/26/ | Office | Cardiology | Martin Kelley, | | | 2020 | Visit | | MD [address] | | | | | | [place], | | | | | | [place] [address] | | | | | | [phone] | | | | | | | | +--------+ + + + + documented as of this encounter Visit Diagnoses Not on filedocumented in this encounter"
--- OUTSIDE RECORDS SUMMARY | ~2020-05-04 | XMS | Encounter Summary ---
Demographics + + + | Address | [address] | | | [place] [address] | + + + | Home Phone [...] + | Gene Gee | ECON | [address] | | | | | [place], | | | | | [place] [address] | | + + + + + Care Team Providers + +------+ + | Care Weather Forcaster Name | Role | Phone | + +------+ + | Alec Hill MD | PCP | | + +------+ + Reason for Visit + +--------+ + | Reason | Onset | Comments | | | Date | | + +--------+ + | Care Coordination | 03/15/ | | | | 2020 | | + +--------+ + Encounter Details +--------+ + + + + | Date | Type | Department | Care Team | Description | +--------+ + + + + | 03/15/ | Telephone | [facility] | Tapan Horowitz MD | Care Coordination | | 2020 | | [facility] | [address] | | | | | [facility] | [address] [place], | | | | | [address] | [place] [address] | | | | | [address] | [phone] | | | | | [facility] | | | | | | Physician's | | | | | | [facility] [place], | | | | | | [place] [address] | | | | | | [phone] | | | +--------+ + + + [...] Telephone Encounter - Tapan Horowitz MD - 03/15/2020 3:29 PM PDTReviewed results with pt. N o need to talk to PCP. el ephone Encounter - Kelsi Martins - 03/15/2020 2:05 PM PDTPt's PCP called don state s that pt had DEXA that showed significant osteoporosis. DEXA done at [facility] [place] in [place] . Dr Hill faxed results to clinic today Requesting to discuss treatment plan. [phone] option 9 will get through to Dr Hill the quickest documented in this encounter Plan of Treatment Not on filedocumented as of this encounter Visit Diagnoses Not on filedocumented in this encounter"
--- OUTSIDE RECORDS SUMMARY | ~2020-05-04 | XMS | Encounter Summary ---
Demographics + + + | Address | [address] | | | [place] [address] | + + + | Home Phone [...] + | Gene Sahil | ECON | [address] | | | | | [place], | | | | | [place] [address] | | + + + + + Care Team Providers + +------+ + | Care Entry Level Staff Accountant Name | Role | Phone | + +------+ + | Antony Ribera MD | PCP | | + +------+ + Encounter Details +--------+ + + + + | Date | Type | Department | Care Team | Description | +--------+ + + + + | 06/12/ | Procedure - | UNKNOWN DEPARTMENT | Record, Operation | Operative Report | | 2006 | | [address] | | | | | Transcribed | [address] | | | | | | [place], [place] | | | | | | [address] | | | +--------+ + + + [...] this encounter Procedure Notes Record, Operation - 06/12/2007 12:00 AM PSTAssociated Order(s): OPERATION RECORD [id number] SAHIL Holman [id number] Date: 06/12/2007 Attending Surgeon: Henri Heart M.D. Sports Development Officer(s): Keshawn Cornejo M.D. 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 Procedures Performed: Revision of right axillary scar and release of right axillary contractures. Anesthesia: General. Indications: The patient is a woman who had a mastectomy for carcinoma of the right breast and had a positive node requiring axillary dissection. During the postoperative period, she had problems with contracture of her axillary wound scar towards the chest wall, and there appeared to be additional contractures in the axillary region that prevented a full recovery of right range of motion. Because she is coming up on a time limit for rehabilitation of her shoulder, she was taken to the operating room to revise the scar and release the contractures to permit full recovery of her right shoulder range of motion. Findings at Operation: There were some contractures of the scar downward towards the chest wall. However, the major findings were actually in the axillary cavity between the pectoralis major and chest wall latissimus dorsi. There was a large seroma cavity which had a very fibrotic wall which was contracted with numerous bands between the latissimus and the subcutaneous tissue, the pectoralis major, and the chest wall. Following release of these bands, the range of motion of the right shoulder was greatly improved. Procedure: The patient was identified, taken to the operating room, and placed on the operating table in the supine position. General anesthetic was induced, and the right upper extremity, axilla, and mastectomy zone were prepared and draped in the sterile fashion. Most of the patient's axillary incision was reopened. The region of the low point of the curvilinear incision was excised because it was somewhat contracted. Dissection was carried to the subcutaneous tissue and into the axillary seroma where the above findings were noted. Using a hemostat to dissect the seroma cavity fibrous wall from possible underlying structures, all these bands were divided and stripped out until mobility of the right upper extremity was restored. The areas operated on were the lateral border of the latissimus dorsi muscle, the chest wall, the lateral border of the pectoralis major muscle, and both of these muscles attached to the operculum of the subcutaneous and superficial axillary fascia. Following this, there was extremely good mobility of the right shoulder. No nerves were encountered nor was the axillary vein, although the axillary vein was seen at one point during the dissection. Following this, a 10 mm Anthony-Stevens drain was inserted through a portion of the patient's mastectomy scar and secured to the skin with a 3-0 nylon suture. The drain was cut to length which continued to drain the axillary seroma cavity. The superficial axillary fascia was then closed with running 3-0 Vicryl suture, and the skin was closed with running 4-0 Biosyn suture. The drain was connected to suction. The wound was anesthetized with local anesthetic. The patient was then awakened and transferred to the recovery room. Estimated blood loss was minimal. There were no complications. There were no specimens sent to Pathology. Henri Heart M.D. / FRANCA [id number] / [id number] / [id number] / [id number] Electronically signed by Henri Heart 06-24-2007 08:52:43 AM documented in this encou nter Plan of Treatment Not on filedocumented as of this encounter Procedures + +--------+ + + + | Procedure Name | Priori | Date/Time | Associated Diagnosis | Comments | | | ty | | | | + +--------+ + + + | OPERATION RECORD | | 06/12/2007 | | Results for this | | | | 12:00 AM | | procedure are in the | | | | PST | | results section. | + +--------+ + + + documented in this encounter Results OPERATION RECORD (06/12/2007 12:00 AM PST) + + | Procedure Note | + + | 06/12/2007 12:00 AM PST | | [id number] | | [id number] SAHIL Holman [id number] | | | | Date: 06/12/2007 | | | | Attending Surgeon: Henri Heart M.D. | | | | | | Sports Development Officer(s): Keshawn Cornejo M.D. | | | | Preoperative Diagnosis(es): | | Axillary contracture of the right axilla following right axillary | | dissection for breast cancer. | | | | Postoperative Diagnosis(es): | | Axillary contracture of the right axilla following right axillary | | dissection for breast cancer. | | | | Procedures Performed: | | Revision of right axillary scar and release of right axillary | | contractures. | | | | Anesthesia: | | General. | | | | Indications: | | The patient is a woman who had a mastectomy for carcinoma of the right | | breast and had a positive node requiring axillary dissection. During the | | postoperative period, she had problems with contracture of her axillary | | wound scar towards the chest wall, and there appeared to be additional | | contractures in the axillary region that prevented a full recovery of right | | range of motion. Because she is coming up on a time limit for | | rehabilitation of her shoulder, she was taken to the operating room to | | revise the scar and release the contractures to permit full recovery of her | | right shoulder range of motion. | | | | Findings at Operation: | | There were some contractures of the scar downward towards the chest wall. | | However, the major findings were actually in the axillary cavity between | | the pectoralis major and chest wall latissimus dorsi. There was a large | | seroma cavity which had a very fibrotic wall which was contracted with | | numerous bands between the latissimus and the subcutaneous tissue, the | | pectoralis major, and the chest wall. Following release of these bands, | | the range of motion of the right shoulder was greatly improved. | | | | Procedure: | | The patient was identified, taken to the operating room, and placed on the | | operating table in the supine position. General anesthetic was induced, | | and the right upper extremity, axilla, and mastectomy zone were prepared | | and draped in the sterile fashion. Most of the patient's axillary incision | | was reopened. The region of the low point of the curvilinear incision was | | excised because it was somewhat contracted. Dissection was carried to the | | subcutaneous tissue and into the axillary seroma where the above findings | | were noted. Using a hemostat to dissect the seroma cavity fibrous wall | | from possible underlying structures, all these bands were divided and | | stripped out until mobility of the right upper extremity was restored. The | | areas operated on were the lateral border of the latissimus dorsi muscle, | | the chest wall, the lateral border of the pectoralis major muscle, and both | | of these muscles attached to the operculum of the subcutaneous and | | superficial axillary fascia. Following this, there was extremely good | | mobility of the right shoulder. No nerves were encountered nor was the | | axillary vein, although the axillary vein was seen at one point during the | | dissection. Following this, a 10 mm Anthony-Stevens drain was inserted | | through a portion of the patient's mastectomy scar and secured to the skin | | with a 3-0 nylon suture. The drain was cut to length which continued to | | drain the axillary seroma cavity. The superficial axillary fascia was then | | closed with running 3-0 Vicryl suture, and the skin was closed with running | | 4-0 Biosyn suture. The drain was connected to suction. The wound was | | anesthetized with local anesthetic. The patient was then awakened and | | transferred to the recovery room. Estimated blood loss was minimal. There | | were no complications. There were no specimens sent to Pathology. | | | | | | | | | | Henri Heart M.D. | | | | RP / HS | | [id number] / [id number] / [id number] / [id number] | | | | | | | | | | | | Electronically signed by Henri Heart 06-24-2007 08:52:43 AM | | | | | + + documented in this encounter Visit Diagnoses Not on filedocumented in this encounter"
--- OUTSIDE RECORDS SUMMARY | ~2020-05-04 | XMS | Encounter Summary ---
Demographics + + + | Address | [address] | | | [place] [address] | + + + | Home Phone | | + + + | Preferred Language | Unknown | + + + | Marital Status | | + + + | Gnosticist Affiliation | CHR | + + + [...] + | Gene Gee | ECON | [address] | | | | | [place], | | | | | [place] [address] | | + + + + + Care Team Providers + +------+ + | Care Wearing Apparel Presser Name | Role | Phone | + +------+ + | Antony Ribera MD | PCP | | + +------+ + Encounter Details +--------+ + + + + | Date | Type | Department | Care Team | Description | +--------+ + + + + | 11/03/ | [place] [place] | Hematology/Medical | Stevan Velazquez, | Carcinoma in Situ of | | 2007 | | Oncology at [facility] | [address] | Breast (Primary Dx) | | | | [address] | [place], [place] | | | | | Mailcode: [place] | [address] | | | | | [facility] | [phone] | | | | | and Healing, | | | | | | [facility] | | | | | | [place], [place] | | | | | | [address] | | | | | | [phone] | | | +--------+ + + + [...] Telephone Encounter - Rosalinda Palacios RN - 11/04/2007 12:30 PM PDTConfirmed pharmacy with patient. Entered order and faxed as instructed by Dr. Velazquez. See email message below. ------ We can refill the arimidex for you at one mg daily for three months with two refills. chris quiñones we send you a script or fax it to your mail order supplier? Hope you are otherwise doing well. Are you doing wrapping or wearing sleeve for you arm swelling? I hope spring time is aroun d in your neighborhood and you are enjoying it. >>> "Deepak & Adriana" < .Sherpaa> 11/04/07 9:03 AM >>> Good Morning Dr. Velazquez, I am doing fine on arimidex - no side effects so far. I am down to one more refill and am wondering if you want to write me a RX or should I have Dr Ribera write a RX for this drug? I just ordered a refill today (locally) but would like to order this drug through my [facility] prescription place where I can get three months supply at a time the next time I need to order it. If you would like to write a prescription could you please make it for a 3 month supply at a time? Thank you I am also on Boniva and seem to be tolerating it fine. I have just been [facility] to [facility] to [facility] and have started treatment for lymphedema in my arm. I am glad we caught it early...just wish I never had to get it!! Thanks again for your help and care. 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
--- OUTSIDE RECORDS SUMMARY | ~2020-05-04 | XMS | Encounter Summary ---
Demographics + + + | Address | [address] | | | [place] [address] | + + + | Home Phone [...] [place], | | | | | [place] [address] | | + + + + + Care Team Providers + +------+ + | Care Electrotherapist Name | Role | Phone | + +------+ + | Antony Ribera MD | PCP | | + +------+ + Encounter Details +--------+ + + + + | Date | Type | Department | Care Team | Description | +--------+ + + + + | 08/18/ | MyChart | Cardiology | Monique Middleton, | RE: flu shot | | 2008 | Encounter | Arrhythmia at [facility] | ALUMNI COORDINATOR | reminders | | | | [address] | | | | | | [facility] | | | | | | and Healing, | | | | | | Building | | | | | | Floor [place], [place] | | | | | | [address] | | | | | | [phone] | | | +--------+ + + + [...]
--- OUTSIDE RECORDS SUMMARY | ~2020-05-04 | XMS | Encounter Summary ---
Demographics + + + | Address | [address] | | | [place] [address] | + + + | Home Phone [...] + | Gene Gee | ECON | [address] | | | | | [place], | | | | | [place] [address] | | + + + + + Care Team Providers + +------+ + | Care Television Service Engineer Name | Role | Phone | + +------+ + | Antony Ribera MD | PCP | | + +------+ + Reason for Visit + +--------+ + | Reason | Onset | Comments | | | Date | | + +--------+ + | Refill Request | 10/30/ | | | | 2014 | | + +--------+ + Encounter Details +--------+--------+ + + + | Date | Type | Department | Care Team | Description | +--------+--------+ + + + | 10/30/ | Refill | Cardiology | Gary Fuentes MD | Refill Request | | 2014 | | Arrhythmia at [facility] | [address] | | | | | [address] | [place] [place], | | | | | [facility] | [place] [address] | | | | | and Healing, | [phone] | | | | | [facility] | | | | | | Floor [place], [place] | | | | | | [address] | | | | | | [phone] | | | +--------+--------+ + + + [...] Telephone Encounter - Monique Fuller RN - 10/30/2014 2:59 PM PDTcalled Adriana to confirm metoprolol dosing- per message from Dr Fuentes: September 25: I am sorry to hear about the bothersome rhythms you felt overnight. The blood pressure and heart rate readings you report look reasonable. I looked through the notes in your chart and Dr. Fuentes feels comfortable with you taking metoprolol tartrate 100mg twice a day (which you report you will be starting as of today) and increasing further to three times a day if nee d be. I would suggest trying the 100mg twice a day dose for several days and see how you do before increasing further. Dr. Fuentes's notes mention that if metoprolol is not controlling yo ur symptoms sufficiently, the next step would be another ablation. Please let us know how th ings go on the 100mg twice a day dose - and if you have any questions about this message. As of October 18- she increased her metoprolol to 100mg in am; 50mg at noon and 100mg in PM. On October 21- she increased to 100mg TID-and has been stable doing better- with BP range 112/ 80- 136/75. Adriana has a clinic appt with Dr Fuentes January 11- which she will plan to keep- will renew her m edications in the meantime documented in this encounter Plan of Treatment Not on filedocumented as of this encounter Visit Diagnoses + + | Diagnosis | + + | Atrial tachycardia 427.89 - Primary Other specified cardiac dysrhythmias | + + documented in this encounter"
--- OUTSIDE RECORDS SUMMARY | ~2020-05-04 | XMS | Encounter Summary ---
Demographics + + + | Address | [address] | | | [place] [address] | + + + | Home Phone [...] + | Gene Gee | ECON | [address] | | | | | [place], | | | | | [place] [address] | | + + + + + Care Team Providers + +------+ + | Care Social Organization Professor Name | Role | Phone | + +------+ + | Antony Ribera MD | PCP | | + +------+ + Encounter Details +--------+ + + + + | Date | Type | Department | Care Team | Description | +--------+ + + + + | 09/18/ | Documentati | Pulmonary & | Ruth Lima, | | | 2008 | on | Critical Care | | | | | | Medicine at | | | | | | [facility] | | | | | | [address] | | | | | | [facility] | | | | | [facility], 3rd Floor | | | | | | [place], [place] | | | | | | [address] | | | | | | [phone] | | | +--------+ + + + [...] this encounter Miscellaneous Notes Telephone Encounter - Ruth Lima Md - 09/18/2008 4:19 PM PSTBLE doppler ultrasound showed DVT in RLE. elephone Encounter - Ruth Lima Md - 09/18/2008 9:20 AM PSTReviewed results of noc oximetry study from 09/14/08: High O2 99%, low 88%, avg 94.8% O2 was <88-89% for 40sec Desat eval done 09/14/08 (done at pt's home 3[address] ft elevation): High O2 99%, low 93%, avg 96.7% (all on RA) Pt had RHC done 09/17/08, prelim note: Procedures: RHC Access: 8Fr R IJ Findings: Normal CO (therm 5.40), Normal filling pressures, PA 25/5, PCW 5. No Flolan trial done given normal outputs and lack of pulmonary hypertension Complications: None Chest CTA 09/17/08: IMPRESSION: 1. Nonocclusive pulmonary embolus at the bifurcation of the right interlobar artery, probably subacute to chronic in timing, without pulmonary infarct or evidence of right heart strain. 2. Mild air trapping without anna bronchiectasis or airway thickening. This may result from small airways disease or very mild bronchiolitis obliterans. 3. A collection of small nodules in the left lower lobe is increased in conspicuity since the recent abdominal CT. It probably represents sequelae of inflammation, although the earliest manifestation of lymphangitic spread of cancer may have a similar appearance and close interval followup is suggested. 4. 3 mm hypodense nodule in the left lobe of the thyroid, for which ultrasound evaluation may be considered as clinically indicated. Assessment: Fortunately, pt does not have pulmonary hypertension per optimal echo study. Echo is notor ious for being unable to truly measure PA pressures, and that is why RHC was done in this pt . Additionally, above nocturnal oximetery study and desat eval do not show any significant desaturations warranting further treatment. However subacute/chronic PE was found on CTA. This could potentially account for pt's echo findings, especially if echo was done around time of acute event. 3.8% of people who have PE can develop pulm htn, so pt will need repeat echo in 1 yr. Pt does have a hx of breast C a and there are some concerning findings on her CT that warrant further f/u. Other risk fac tors for PE in her would include her arrhythmias and inflammatory rheum disease. She appear s to be fairly active on a day-to-day basis. Plan: 1. Will contact pt and pcp to review results of above studies and initiate care plan for P E. 2. Bilateral LE doppler ultrasound today at [facility]. 3. Initiation of lovenox/coumadin, w/ INR checks and anti-coag clinic close to pt's home. Teaching will be done today at heme clinic. Will start lovenox 65mg sc bid, will wait to a rrange coumadin dosing in [place]. 4. Repeat noncontrast chest CT in 3 months to f/u LLL nodules. 5. Would ask that pcp ensure that all of her cancer screening is up to date; pt needs to h ave regular f/u for her hx breast Ca, along w/ mammograms, colonoscopy, and appropriate fema le commercial [employer] screening to exclude contribution of occult malignancy to a hypercoagulable state and PE. 6. F/u in pulm clinic in 3 months w/ repeat CT as above and prior ordered PFTs. RUTH LIMA MD [facility] [address] Mailcode: [id number] [place] [address] documented in thi s encounter Plan of Treatment Not on filedocumented as of this encounter Procedures + +--------+ + + + | Procedure Name | Priori | Date/Time | Associated Diagnosis | Comments | | | ty | | | | + +--------+ + + + | VASC LAB VENOUS | Routin | 09/18/2008 | | Results for this | | DUPLEX LOWER | e | 3:19 PM | | procedure are in the | | EXTREMITY BILAT COMP | | PST | | results section. | + +--------+ + + + documented in this encounter Results CT CHEST WO CONTRAST (12/28/2008 2:50 PM PDT) + + + + + + | Component | Value | Ref Range | Performed | Pathologist | | | | | At | Signature | + + + + + + | CT CHEST WO | STUDY: CT chest without | | | | | CONTRAST | contrast | | | | | | 12/28/08COMPARISON: | | | | | | 8 and 09/17/08HISTORY: | | | | | | Breast carcinoma, | | | | | | Sjogren's, prior | | | | | | pulmonary | | | | | | embolus.TECHNIQUE: CT | | | | | | was performed through | | | | | | the chest without IV | | | | | | contrast.FINDINGS: There | | | | | | is no pericardial or | | | | | | pleural effusion. | | | | | | Rightaxillary clips | | | | | | are noted. No enlarged | | | | | | hilar or mediastinal | | | | | | lymphnodes are | | | | | | identified. The heart, | | | | | | aorta and great vessels | | | | | | are normal. Right | | | | | | mastectomy is again | | | | | | noted.There is a stable | | | | | | 3 mm nodule in the right | | | | | | upper lobe, image | | | | | | 60.Peripheral inferior | | | | | | posterior right lower | | | | | | lobe scarring, image | | | | | | 130,measuring 5 mm is | | | | | | unchanged. Previously | | | | | | described lingular | | | | | | nodularopacities have | | | | | | nearly essentially | | | | | | resolved with minimal | | | | | | scarringremaining in the | | | | | | same location. No new | | | | | | pulmonary nodules | | | | | | areidentified.Limited | | | | | | images through the upper | | | | | | abdomen reveal | | | | | | bilateral | | | | | | extrarenalpelves. The | | | | | | gallbladder is | | | | | | surgically absent. | | | | | | Numerous varyingsized | | | | | | hepatic hypodensities | | | | | | are stable in number and | | | | | | size. Theosseous | | | | | | structures are | | | | | | normal.IMPRESSION:Interv | | | | | | al near complete | | | | | | resolution of previously | | | | | | describedinflammatory | | | | | | lingular nodules. | | | | | | Stable 3 mm right | | | | | | upper lobepulmonary | | | | | | nodule.I have personally | | | | | | viewed this | | | | | | procedure/exam and | | | | | | reviewed this | | | | | | report.Author: MONAE | | | | | | Declan CONWAYReviewer: | | | | | | LAUREN WYNNE, | | | | | | DeclanSTATUS FINAL / | | | | | | LAUREN WYNNESTATUS | | | | | | PENDING FINAL APPROVAL / | | | | | | Dr. MONAE KILGORE | | | | | | RESULT MODIFIED / | | | | | | MONAE KILGORE | | | | | | PENDING FINAL APPROVAL / | | | | | | Dr. MONAE KILGORE | | | | | | PRELIMINARY - UNSIGNED / | | | | | | Dr. MONAE CONWAY | | | | + + + + + + + + | Specimen | + + | | + + + +---------+ + + | Performing | Address | City/State/Zipcode | Phone Number | | Organization | | | | + +---------+ + + | [facility] | | | | | RADIOLOGY | | | | + +---------+ + + VASC LAB VENOUS DUPLEX LOWER EXTREMITY BILAT COMP (09/18/2008 3:19 PM PST) + + + + + + | Component | Value | Ref Range | Performed | Pathologist | | | | | At | Signature | + + + + + + | VASC LAB | Med Rec No: [id number] | | | | | VENOUS | Name: | | | | | DUPLEX | LAUREN BAXTER | | | | | LOWER | Birthday: 1945 | | | | | EXTREMITY | Sex: F | | | | | BILATERAL | Alias:Patient Location: | | | | | COMPLETE | [id number]: Outpatient | | | | | | ActiveOrdering | | | | | | Physician: JOSE CAMPBELL, | | | | | | M.D.ORDERING PHYS2 : | | | | | | RUTH LIMAVDKATHERINE VL | | | | | | VENOUS DUP BILAT CMP LE | | | | | | completed on 09/18/2008 | | | | | | 3:19 PMAccession # | | | | | | [id number]:LOWER | | | | | | EXTREMITY VENOUS STUDY: | | | | | | 09/18/2008 Dictated | | | | | | 09/19/2008INDICATION: | | | | | | Pulmonary embolism.The | | | | | | duplex scanner was used | | | | | | to examine the deep and | | | | | | superficial veinsof | | | | | | both the right and left | | | | | | lower extremities. In | | | | | | the left lowerextremity, | | | | | | all vessels were patent | | | | | | with normal flows and | | | | | | response toaugmentation | | | | | | and compression | | | | | | maneuvers and no | | | | | | thrombus wasvisualized. | | | | | | In the right lower | | | | | | extremity, thrombus was | | | | | | present inthe peroneal | | | | | | vein for a short | | | | | | distance as well as in | | | | | | the vein in | | | | | | the calf. The thrombi | | | | | | did not extend into the | | | | | | popliteal veinand no | | | | | | other thrombi are | | | | | | visible in the deep or | | | | | | superficial veins ofthe | | | | | | right lower | | | | | | extremity.IMPRESSION:An | | | | | | abnormal venous | | | | | | examination | | | | | | demonstrating deep | | | | | | venous | | | | | | thrombosisinvolving calf | | | | | | veins of the right leg. | | | | | | The thrombus does not | | | | | | extendinto the | | | | | | popliteal vein and no | | | | | | other thrombi are | | | | | | visible in the deepor | | | | | | superficial veins of the | | | | | | right leg or the left | | | | | | lower extremity.It | | | | | | suggested that this | | | | | | examination be repeated | | | | | | in 5 to 7 days tomonitor | | | | | | for more proximal | | | | | | extension of thrombus | | | | | | present in the | | | | | | rightlower extremity of | | | | | | this patient.END | | | | | | IMPRESSIONI have | | | | | | personally viewed this | | | | | | procedure/exam and | | | | | | reviewed this | | | | | | report.STATUS FINAL / | | | | | | Dr. GINA Schuler | | | | | | MONETASTATUS PRELIMINARY | | | | | | - UNSIGNED / Lindsay | | | | | | Miladis | | | | + + + + + + + + | Specimen | + + | | + + + +---------+ + + | Performing | Address | City/State/Zipcode | Phone Number | | Organization | | | | + +---------+ + + | [facility] | | | | | RADIOLOGY | | | | + +---------+ + + documented in this encounter Visit Diagnoses + + | Diagnosis | + + | Other pulmonary embolism and infarction | + + | Pulmonary nodules Other diseases of lung, not elsewhere classified | + + documented in this encounter"
--- OUTSIDE RECORDS SUMMARY | ~2020-05-04 | XMS | Encounter Summary ---
Demographics + + + | Address | [address] | | | [place] [address] | + + + | Home Phone [...] + | Gene Gee | ECON | [address] | | | | | [place], | | | | | [place] [address] | | + + + + + Care Team Providers + +------+ + | Care Insurance Rater Name | Role | Phone | + +------+ + | Antony Swenson MD | PCP | | + +------+ + Reason for Visit + + + | Reason | Comments | + + + | Follow-up encounter | | + + + | Treatment Planning | | + + + Encounter Details +--------+---------+ + + + | Date | Type | Department | Care Team | Description | +--------+---------+ + + + | 09/05/ | Office | Hematology/Medical | Stevan Velazquez, | Breast Cancer (HCC) | | 2007 | Visit | Oncology at [facility] | MD [address] | (Primary Dx) | | | | [address] | [place], [place] | | | | | Mailcode: [facility] | [address] | | | | | [facility] | [phone] | | | | | and [place], | | | | | | [facility] | | | | | | Floor [place], [place] | | | | | | [address] | | | | | | [phone] | | | +--------+---------+ + + + [...] + + + | Blood Pressure | 117/53 | 09/05/2007 12:04 PM | | | | | PST | | + + + + + | Pulse | 84 | 09/05/2007 12:04 PM | | | | | PST | | + + + + + | Temperature | 36.2 C (97.1 F) | 09/05/2007 12:04 PM | | | | | PST [...] + + + + | Weight | 67.7 kg (149 lb 4 | 09/05/2007 12:04 PM | | | | oz) | PST | | + + + + + | Height | - | - | | + + + + + | Body Mass Index | 24.09 | 08/15/2007 9:59 AM | | | | | PST | | + + + + + documented in this encounter Progress Notes Stevan Velazquez - 09/05/2007 12:49 PM PSTFormatting of this note might be different from zachariah e original. Adriana is a pleasant 61-year-old female with [...] management of her cancer, including chemotherapy. She co mpleted adjuvant chemo with Taxotere and cytoxan for four cycles three weeks ago. She is graham k with her Deepak for a follow up appointment. She has a number of co-morbidities which include Atrial tachyarrythmia, multiple abd surger y for bowel resection, h/o SBO, sjogren's syndrome with dry eyes. S: Adriana experienced a tough three weeks after this treatment. She forgot to use Spivira for one and a half week which gave her More trouble breathing. She is now back on Spivira and a lso Combivent with her respiratory symptoms largely resolved. She is having a little coughi ng with no sputum. She was seen by her PCP, Dr. Swenson who prescribed Robitussin which she is taking right now. No fever or chills and temp was 99.5 at its highest. No sore throat or m uscle sore. No CXR was obtained when she last visited Dr. Swenson as her lung dee were enti rely clear to auscultation. She denied abdominal pain, N/V and she is moving her bowels daily. She did not experience any of the palpitation or irregular heart beats that she had after h er second or third cycle of treatment. More tearing but this is expected after restasis eye drops. Vision is normal with correction. She does not have any numbness or tingling sensation over the tips of her fingers or toes b ut does have some pounding sensation underneath her nail over at left middle finger on one o ccasion. No nail loss or separation from nail beds. She was having a little joint and bone pain one week after chemo- tylenol takes care of it. Energy level is climbing back up finally. Get tired more easily. She likes to try things bu t run out of steams readily. She finally felt she was going to get better over the past cou ple of days. 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 There is No lightheaded or dizziness. She noticed that she would Walk up one slight of stairs and developed SOB. Was knocked down for one week and a half with chemo but now getting better. She continues to take Physical therapy to improve her right of motion of her right shoulder . Shoulder felt a bit tight but no swelling over her right forearm. Was shoveling ice two d ays ago. Adriana gave a history of low bone density in the past. Had tried fosamax in the past-- was having horrible abdominal pain so she stopped. She did not recall heartburn or acid regurg itation type of symptoms. O: Filed Vitals: 09/05/2007 12:04 PM BP: 117/53 Pulse: 84 Temp: 97.1 F (36.2 C) Weight: 67.7 kg (149 lbs 4 oz) Alert and oriented. Not pale or icteric No oral lesion No tenderness on percussion over sinuses Neck supple, no JVE Chest, symmetric expansion, no wheezing or rales but breathing sound is coarse Heart, RR, no murmur or gallop Abd, soft and non tender, No liver, spleen or mass palpable. No increased rigidity or rebou nd tenderness, bowel sound active Ext, no cyanosis or clubbing or edema No knocking pain down spine column, no CVA tenderness Neuro intact Lymphatics, no cervical, axillary or supra- or infra-clav LAD palpable Port site clean. ROM of right shoulder is excellent with pulling sensation in the armpit with full flexion a t near 90 degree. Lab: Component Reference Range 09/05/2007 WBC POC (ADULT) 3.4-10 K/mm:3 6.3 LYMPH# POC (ADULT) 1.6-2.6 1.3 (A) LYMPH% POC (ADULT) 26-41 % 20.7 (A) MID-RANGE# POC (ADULT) 0-2 0.6 MID-RANGE% POC (ADULT) 7-15 % 9.8 NEUTROPHIL# POC (ADULT) 2.2-5.2 4.4 NEUTROPHIL% POC (ADULT) 48-65 % 69.5 (A) RBC POC (ADULT) 3.8-5.2 M/mm:3 4.08 HGB POC (ADULT) 12.2-15 g/dL 11.3 (A) HCT POC (ADULT) 37-46.5 % 34.8 (A) MCV POC (ADULT) 85-95 fL 85.4 MCH POC (ADULT) 29-32 pg 27.7 (A) MCHC POC (ADULT) 32.6-33.9 g/dL 32.5 (A) RDW POC (ADULT) 11.5-15 % 19.4 (A) PLT POC (ADULT) 150-420 K/mm:3 304 MPV POC (ALL AGE) 7.4-10.4 fL 9.2 SODIUM, CMP POC 136-145 mmol/L 141 POTASSIUM, CMP POC 3.5-5.1 mmol/L 4.3 TOTAL CO2, CMP POC 23-29 mmol/L 28 CHLORIDE, CMP POC 98-107 mmol/L 107 GLUCOSE, CMP POC 66-99 mg/dL 107 (A) CALCIUM TOTAL, CMP POC 8.5-10.5 mmol/L 9.4 BUN, CMP POC 6-20 mg/dL 11 CREATININE, CMP POC 0.6-1.1 mg/dL 0.9 ALK PHOS, CMP POC 42-98 U/L 71 ALT, CMP POC 13-48 U/L 84 (A) AST, CMP POC 15-41 U/L 64 (A) BILIRUBIN TOTAL, CMP POC 0.3-1.2 mg/dL 0.6 ALBUMIN, CMP POC 3.5-4.7 g/dL 3.6 PROTEIN TOTAL, CMP POC 6.3-8 g/dL 7.1 VITAMIN D 25 HYDROXY 30-80 ng/mL 46 A/P: Adriana was having more fatigue with this round of chemo. She was also having more trouble b reathing while she forgot to take her Spivira. Her breathing symptoms improved after she we nt back on to the med and inhalers. There is no fever and clinically there is no evidence of pneumonia. She is three weeks out from chemo and I anticipate that she will continue to i mprove with her fatigue. Her H/H is lower likely from chemo but no intervention is needed. Her mild elevation of LF Ts is likely from chemotherapy which we will monitor. Port is to be removed by Dr. Heart later this afternoon. We discuss the importance of calcium and VIt D supplement. Adriana had a bone density done th is morning and her T scores were -2.1 which, based on her account, was similar to what she g ot five years ago. She tried fosamax but was having problems with it. I will touch base wi Dr. Swenson. If this is indeed the case, perhaps we can try monthly Boniva or go intravenou s route with Aredia or Zometa. SHe is on calcium and VIt D. Her 25 OH Vit D level is WNL. Adriana will start arimidex one mg po daily next week. We discuss that endocrine therapy is a n important part of her therapy. She has received very aggressive chemo and now all the att ention is to turn to hormone therapy. Side effects or arimidex may include bone loss, fract ure, menopausal symptoms, atrophic vaginitis, joint pain and development of unfavorable lipi d profile. I would recommend yearly bone density DEXA scan and we should be aggressive with the management of her low bone density. I will touch base with Dr. Swenson regarding the optimal management of her low bone density an d we will start arimidex next week once she is recovered more from the chemo. Discussed with cardiology about new med- no known interaction with her cardiac medication. LANA VELAZQUEZ MD, PhD HEMATOLOGY ONCOLOGY [address] [place] [address], [address] [place] [id number] documented in this encoun ter Plan of Treatment Not on filedocumented as of this encounter Results VITAMIN D, 25-HYDROXY (09/05/2007 1:57 PM PST) + + + + + + | Component | Value | Ref Range | Performed | Pathologist | | | | | At | Signature | + + + + + + | VITAMIN D | 46Comment: TEST | 30 - 80 ng/mL | | | | 25 HYDROXY | INFORMATION: VITAMIN D, | | | | | | 25-HYDROXYThis assay | | | | | | accurately quantifies | | | | | | the sum of vitamin | | | | | | D3,25-hydroxy and | | | | | | vitamin D2, | | | | | | 25-hydroxy.Deficiency: | | | | | | Less [...] [facility] | | | | | | [facility],[address] | | | | | | [facility], [place] [address] | | | | | | [phone]. | | | | | | Mathew robles | | | | | | MD [facility]. | | | | | | Director Reference | | | | | | range change effective | | | | | | 07/29/07. | | | | + + + + + + + + | Specimen | + + | | + + + + + + + | Performing | Address | City/State/Zipcode | Phone Number | | Organization | | | | + + + + + | [facility] | [address] | [place], [place] | | | [facility] | | [phone] | | + + + + + documented in this encounter Visit Diagnoses + + | Diagnosis | + + | Breast cancer (HCC) - Primary Malignant neoplasm of breast (female), unspecified site | + + documented in this encounter"
--- OUTSIDE RECORDS SUMMARY | ~2020-05-04 | XMS | Encounter Summary ---
Demographics + + + | Address | [address] | | | [place] [address] | + + + | Home Phone | | + + + | Preferred Language | Unknown | + + + | Marital Status | | + + + | [employer] Affiliation | CHR | + + + | Race | White | + + + | Ethnic Group | Not or | + + + Author + + + | Author | [facility] | + + + | Organization | [facility] | + + + | Address | Unknown | + + + | Phone | Unavailable | + + + Support + + + + + | Name | Relationship | Address | Phone | + + + + + | Gene Sahil | ECON | [address] | | | | | [place], | | | | | [place] [address] | | + + + + + Care Team Providers + +------+ + | Care Receiving Associate Name | Role | Phone | + +------+ + | Antony Ribera MD | PCP | | + +------+ + Encounter Details +--------+ + + + + | Date | Type | Department | Care Team | Description | +--------+ + + + + | 07/22/ | Procedure - | Surgical Oncology | Henri Heart, | Operative Report | | 2007 | | at [facility] [address] | [address] | | | | Transcribed | [facility] [place], [place] | | | | | [facility], | [address] | | | | | [address] | [phone] | | | | | [place], [place] | | | | | | [address] | | | | | | [phone] | | | +--------+ + + + [...] documented as of this encounter Procedure Notes [facility] - 07/22/2007 12:00 AM PSTAssociated Order(s): OPERATION RECORD [id number] SAHIL Holman [id number] Date: 07/22/2007 Attending Surgeon: Henri Heart M.D. Special Investigation Unit Investigator(s): Kelsi Penn M.D. Preoperative Diagnosis(es): Basal cell carcinoma of the right scapular region. Postoperative Diagnosis(es): Basal cell carcinoma of the right scapular region. Procedures Performed: Wide local excision of basal cell carcinoma of the right scapular region. Anesthesia: Xylocaine 1% without epinephrine, local. Specimens: Basal cell carcinoma of the right back, long stitch lateral, short stitch superior. Indications: The patient is a 61-year-old woman who has breast cancer and is currently undergoing chemotherapy. At one of her recent visits, she complained of a lesion on her right scapular region. A punch biopsy of this revealed basal cell carcinoma with positive margins. The patient is therefore brought to [facility] today for wide local excision. Findings: There was 0.5 cm transverse scar from the punch biopsy with no obvious tumor. Procedure: The patient was identified and taken to the operating room and placed on the operating table in prone position. A pause had been performed prior to this, and a consent had been obtained. The right shoulder was then prepared and draped in sterile fashion. A transverse ellipse measuring 2 cm x 1 cm was designed around the existing scar. Xylocaine 1% local anesthetic was infiltrated into the skin. The ellipse was then incised. Before the specimen was amputated from the patient, it was ( ) pathology by placing a long stitch on the lateral border and a short stitch on the superior border. The specimen was then taken full thickness along with a small amount of subcutaneous tissue. Bleeding was controlled with electrocautery. The incision was then closed with interrupted 3-0 Vicryl deep dermal sutures followed by a running 4-0 Vicryl subcuticular suture. Steri-Strips and sterile dressing were applied. The specimen was sent to Pathology. The patient was discharged to home with wound care instructions. She will follow up on during her next chemotherapy appointment. Henri Heart M.D. / FRANCA [id number] / [id number] / [id number] / [id number] Electronically signed by Henri Heart 03-18-2008 01:17:22 PM documented in this e ncounter Plan of Treatment Not on filedocumented as of this encounter Procedures + +--------+ + + + | Procedure Name | Priori | Date/Time | Associated Diagnosis | Comments | | | ty | | | | + +--------+ + + + | OPERATION RECORD | | 07/22/2007 | | Results for this | | | | 12:00 AM | | procedure are in the | | | | PST | | results section. | + +--------+ + + + documented in this encounter Results OPERATION RECORD (07/22/2007 12:00 AM PST) + + + | Narrative | Performed At | + + + | [id number] | | | [id number] SAHIL | | | ADRIANA Holman [id number] Date: | | | 07/22/2007 Attending Surgeon: | | | Henri Heart M.D. Special Investigation Unit Investigator(s): | | | Kelsi Penn M.D. Preoperative | | | Diagnosis(es): Basal cell carcinoma of the right scapular region. | | | Postoperative Diagnosis(es): Basal cell carcinoma of the right | | | scapular region. Procedures Performed: Wide local excision of | | | basal cell carcinoma of the right scapular region. | | | Anesthesia: Xylocaine 1% without epinephrine, local. | | | Specimens: Basal cell carcinoma of the right back, long stitch | | | lateral, short stitch superior. Indications: The patient is | | | a 61-year-old woman who has breast cancer and is currently | | | undergoing chemotherapy. At one of her recent visits, she | | | complained of a lesion on her right scapular region. A punch biopsy | | | of this revealed basal cell carcinoma with positive margins. The | | | patient is therefore brought to [facility] today for wide local | | | excision. Findings: There was 0.5 cm transverse scar from the | | | punch biopsy with no obvious tumor. Procedure: The patient | | | was identified and taken to the operating room and placed on the | | | operating table in prone position. A pause had been performed | | | prior to this, and a consent had been obtained. The right shoulder | | | was then prepared and draped in sterile fashion. A transverse | | | ellipse measuring 2 cm x 1 cm was designed around the existing | | | scar. Xylocaine 1% local anesthetic was infiltrated into the | | | skin. The ellipse was then incised. Before the specimen was | | | amputated from the patient, it was ( ) pathology by | | | placing a long stitch on the lateral border and a short stitch on | | | the superior border. The specimen was then taken full thickness | | | along with a small amount of subcutaneous tissue. Bleeding was | | | controlled with electrocautery. The incision was then closed with | | | interrupted 3-0 Vicryl deep dermal sutures followed by a running | | | 4-0 Vicryl subcuticular suture. Steri-Strips and sterile dressing | | | were applied. The specimen was sent to Pathology. The patient | | | was discharged to home with wound care instructions. She will | | | follow up on during her next chemotherapy appointment. | | | Henri Heart M.D. SAMINA / FRANCA [id number] / | | | [id number] / [id number] / [id number] | | | Electronically signed by Henri Heart 03-18-2008 01:17:22 PM | | + + + + + | Procedure Note | + + | Henri Heart MD - 07/22/2007 12:00 AM PST [id number] | | [id number] SAHIL Holman | | [id number] Date: 07/22/2007 Attending Surgeon: Henri | | Declan Heart Special Investigation Unit Investigator(s): Kelsi Penn M.D. | | Preoperative Diagnosis(es):Basal cell carcinoma of the right scapular region. | | Postoperative Diagnosis(es):Basal cell carcinoma of the right scapular region. | | Procedures Performed:Wide local excision of basal cell carcinoma of the right scapular | | region. Anesthesia:Xylocaine 1% without epinephrine, local. Specimens:Basal cell | | carcinoma of the right back, long stitch lateral, short stitchsuperior. Indications:The | | patient is a 61-year-old woman who has breast cancer and is currentlyundergoing | | chemotherapy. At one of her recent visits, she complained of alesion on her right | | scapular region. A punch biopsy of this revealed basalcell carcinoma with positive | | margins. The patient is therefore [facility] today for wide local | | excision. Findings:There was 0.5 cm transverse scar from the punch biopsy with no | | obvioustumor. Procedure:The patient was identified and taken to the operating room and | | placed onthe operating table in prone position. A pause had been performed prior | | tothis, and a consent had been obtained. The right shoulder was thenprepared and draped | | in sterile fashion. A transverse ellipse measuring 2cm x 1 cm was designed around the | | existing scar. Xylocaine 1% localanesthetic was infiltrated into the skin. The ellipse | | was then incised.Before the specimen was amputated from the patient, it | | was( ) pathology by placing a long stitch on the lateral borderand a short | | stitch on the superior border. The specimen was then takenfull thickness along with a | | small amount of subcutaneous tissue. Bleedingwas controlled with electrocautery. The | | incision was then closed withinterrupted 3-0 Vicryl deep dermal sutures followed by a | | running 4-0 Vicrylsubcuticular suture. Steri-Strips and sterile dressing were applied. | | Thespecimen was sent to Pathology. The patient was discharged to home withwound care | | instructions. She will follow up on during her nextchemotherapy appointment. | | Henri Heart M.D. SAMINA Barlow [id number] / [id number] / [id number] / [id number]: 07/22/2007T: | | 07/23/2007 Electronically signed by Henri Heart 03-18-2008 01:17:22 PM | |Specimens: | |Basal cell carcinoma of the right back, long stitch lateral, short stitch | |superior. | | | | | |Indications: | |The patient is a 61-year-old woman who has breast cancer and is currently | |undergoing chemotherapy. At one of her recent visits, she complained of a | |lesion on her right scapular region. A punch biopsy of this revealed basal | |cell carcinoma with positive margins. The patient is therefore brought to | |[facility] Surgery today for wide local excision. | | | | | |Findings: | |There was 0.5 cm transverse scar from the punch biopsy with no obvious | |tumor. | | | | | |Procedure: | |The patient was identified and taken to the operating room and placed on | |the operating table in prone position. A pause had been performed prior to | |this, and a consent had been obtained. The right shoulder was then | |prepared and draped in sterile fashion. A transverse ellipse measuring 2 | |cm x 1 cm was designed around the existing scar. Xylocaine 1% local | |anesthetic was infiltrated into the skin. The ellipse was then incised. | |Before the specimen was amputated from the patient, it was | |( ) pathology by placing a long stitch on the lateral border | |and a short stitch on the superior border. The specimen was then taken | |full thickness along with a small amount of subcutaneous tissue. Bleeding | |was controlled with electrocautery. The incision was then closed with | |interrupted 3-0 Vicryl deep dermal sutures followed by a running 4-0 Vicryl | |subcuticular suture. Steri-Strips and sterile dressing were applied. The | |specimen was sent to Pathology. The patient was discharged to home with | |wound care instructions. She will follow up on during her next | |chemotherapy appointment. | | | | | | | | | | | | | | | | | |Henri Heart M.D. | | | | | |SAMINA / | |[id number] / [id number] / [id number] / [id number] | | | | | | | | | | | | | | | | | |Electronically signed by Henri Heart 03-18-2008 01:17:22 PM | | | | | + + documented in this encounter Visit Diagnoses Not on filedocumented in this encounter"
--- OUTSIDE RECORDS SUMMARY | ~2020-05-04 | XMS | Encounter Summary ---
Demographics + + + | Address | [address] | | | [place] [address] | + + + | Home Phone [...] + | Gene Gee | ECON | [address] | | | | | [place], | | | | | [place] [address] | | + + + + + Care Team Providers + +------+ + | Care Waste Chopper Name | Role | Phone | + +------+ + | Antony Ribera MD | PCP | | + +------+ + Reason for Visit Office Visit - E/M Services (Routine) +--------+ [...] | | | | | | | [place], [place] | | | | | | | [address] | | | | | | | Phone: | | | | | | | [phone] | | | | | | | Fax: | | | | | | | [phone] | +--------+ + + + + + Encounter Details +--------+---------+ + + + | Date | Type | Department | Care Team | Description | +--------+---------+ + + + | 09/24/ | Office | Surgical Oncology | Luís [facility], | Breast cancer, right | | 2014 | Visit | at [facility] [address] | MD [address] | (HCC) (Primary Dx) | | | | [facility] | [place], [place] | | | | | [facility] and [place], | [address] | | | | | Building [address] | [phone] | | | | | [facility] [place] | | | | | | [address] | | | | | | [phone] | | | +--------+---------+ + + + [...] + + + | Blood Pressure | 127/72 | 09/24/2014 2:22 PM | | | | | PDT | | + + + + + | Pulse | 78 | 09/24/2014 2:22 PM | | | | | PDT | | + + + + + | Temperature | 37.1 C (98.8 F) | 09/24/2014 2:22 PM | | | | | PDT | | + + + + + | Respiratory Rate | 16 | 09/24/2014 2:22 PM | | | | | PDT | | + + + + + | Oxygen Saturation | - | - | | + + + + + | Inhaled Oxygen | - | - | | | Concentration | | | | + + + + + | Weight | 67.4 kg (148 lb 8 | 09/24/2014 2:22 PM | | | | oz) | PDT | | + + + + + | Height | - | - | | + + + + + | Body Mass Index | 23.97 | 07/27/2014 11:18 AM | | | | | PST | | + + + + + documented in this encounter Progress Notes Luís Heart MD - 09/24/2014 3:25 PM PDTI performed a history and physical examination of the patient and discussed her management with the resident. I reviewed the resident s note and agree with the documented findings and plan of care. The patient denies breast masses, skin changes, nipple changes, nipple discharge, lymphaden opathy, lymphedema, bone pain, shortness of breath, cough, orthopnea, PND, or change in abdo anna girth. BP 127/72 | Pulse 78 | Temp (Src) 37.1 C (98.8 F) (Oral) | RR 16 | Wt 67.359 kg (148 lb 8 oz) | BMI 23.98 kg/(m^2) Gen: WD/WN in NAD. Not jaundiced. HEENT: PERRLA. EOMI. Sclerae non-icteric. Neck: No cervical or supraclavicular lymphadenopathy. Lungs: Clear to auscultation and percussion bilaterally with 2cm diaphragmatic excursions b ilaterally. Breast exam:She has a right mastectomy with implant and nipple areola reconstruction. The L eft breast has an everted nipple.There is no obvious skin change, dimpling, or mass. Palpati on of the left breast did not reveal any dominant masses. There was no nipple discharge. The re was no axillary lymphadenopathy. Palpation of the mastectomy scars and flaps did not reve al any suspicious areas, changes or masses. There [...] is no inguinal lymphadenopathy. Extr: Without clubbing, Cyanosis, and she is wearing a sleeve for RUE lymphedema. Neuro: C N II-XII grossly intact. Motor and sensory exam grossly normal throughout. Mammograms of the left breast were reviewed today and they are negative. Assessment: History of carcinoma of the right breast, stage [id number], stage I. The patient jesse hagan has no evidence of disease. Plan: RTC in 1 year with left mammograms. We will stop mammography by age 74. LUÍS HEART MD [facility] Division of Surgical Oncology [id number] [place], [place] [address] hShaun gallegos MD - 09/13 2:30 PM PDT SURGICAL ONCOLOGY SURGERY FOLLOW UP CLINIC NOTE: Clinic Date: 09/24/2014 Attending: Dr. Heart ID: Adriana Flynn is a 69 y.o. female with a history of invasive ductal carcinoma s/p R tot al mastectomy with R axillary SLNB and subsequent completion axillary lymph node dissection (0/16 nodes positive) in 2006 and adjuvant chemotherapy with taxotere/cytoxan, then arimidex here for her annual follow up mammogram and CBE. Interval History: Since the time the patient was last seen in clinic they continue to do well clinically. Al l of her previous screening mammographies have otherwise been normal. She denies any new cyndi mps, bumps, skin lesions, nipple inversion, or spontaneous nipple discharge since she was se en last. She also denies any fevers, chills, nausea/vomiting, continued pain, malaise/fatig ue, or unexplained weight loss. ROS: Otherwise negative besides those mentioned in the HPI. MEDICATIONS: Current outpatient prescriptions:albuterol (PROAIR HFA) 90 mcg/actuation inhalation HFA aer osol inhaler, Inhale 1-2 puffs every four hours as needed. Indications: ACUTE ASTHMA ATTACK, Disp: 1 Inhaler, Rfl: 11 budesonide (PULMICORT FLEXHALER) 180 mcg/actuation inhalation aerosol powdr breath activate d, Inhale 3 puffs two times daily., Disp: 2 each, Rfl: 6 calcium citrate-vitamin D (CITRACAL + D) 315-200 mg-unit Oral Tablet, 2 tabs in evening an d liquid calcium citrate in AM, Disp: , Rfl: carboxymethylcellulose 0.5 % ophthalmic dropperette, 1 drop 3 Times Daily, Disp: , Rfl: CEVIMELINE 30 mg oral capsule, , Disp: , Rfl: DOFETILIDE 500 mcg oral capsule, Take 1 capsule by mouth two times daily., Disp: 180 capsul e, Rfl: 3 ezetimibe (ZETIA) 10 mg Oral Tablet, Take 10 mg by mouth once daily., Disp: , Rfl: fluticasone (FLONASE) 50 mcg/actuation nasal spray,suspension, Instill 1 spray into each no stril two times daily., Disp: 1 each, Rfl: 6 fluticasone 220 mcg/actuation inhalation aerosol (aero), Inhale 2 puffs two times daily. Mo rning and evening. Rinse mouth after use. Indications: BRONCHIAL ASTHMA, Disp: 1 Inhaler, R fl: 11 Glucosamine 1,000 mg Oral Tablet, one daily, Disp: , Rfl: LORAZEPAM 1 mg Oral tablet, 0.5 Tabs Q HS PRN., Disp: , Rfl: Methylcellulose, Laxative, (CITRUCEL) Oral Powder, Take by mouth., Disp: , Rfl: metoprolol tartrate 50 mg oral tablet, 1 tablet twice a day; may increase to 2 tablets twic e a day if needed, Disp: 180 tablet, Rfl: 3 MULTIVITAMIN OR, one daily, Disp: , Rfl: potassium chloride SR 20 mEq Oral tablet,ER particles/crystals, Take 1 Tab by mouth once da yin., Disp: 90 Tab, Rfl: 4 rabeprazole (ACIPHEX) 20 mg Oral Tablet, Delayed Release (E.C.), Take 20 mg by mouth every twelve hours., Disp: , Rfl: RESTASIS 0.05 % Ophthalmic Dropperette, 1 drop two times daily., Disp: , Rfl: Vitamin A-Vitamin C-Vit E-Min (ANTIOXIDANT FORMULA) Oral Capsule, take 1 capsule by oral ro big [place] once daily with food, Disp: , Rfl: VITAMIN D ORAL, 2000 IU daily, Disp: , Rfl: PAST MEDICAL HISTORY: Past Medical History Diagnosis Date Sjogrens syndrome 1995 Fibromyalgia 1995 Mitral valve prolapse 1989 GERD (gastroesophageal reflux disease) 1995 Asthma 1999 TMJ (dislocation of temporomandibular joint) Fibrocystic disease of breast 1979 Diverticul disease small and large intestine, no perforati or abscess Skin cancer back Small bowel obstruction 07/20,10/19,02/19 Atrial tachycardia 07/20 Bursitis 2005 Plantar fascial fibromatosis 2007 plantar fascial tear Osteopenia 12/30/2007 Breast cancer 02/2007 s/p chemo with taxotere/cytoxan Shingles Difficult intravenous access Atrial fibrillation 05/2012 assoc with vomiting and diarrhea Pulmonary embolus 09/2008 Deep vein thrombosis of lower extremity Undiagnosed cardiac murmurs PAST SURGICAL HISTORY: Past Surgical History Procedure Laterality Date Ectopic [...] [facility] ablation 12/16/2004,09/21/2005 Dr. Fuentes, [facility] Mastectomy Biopsy / excision / dissection axillary node SOCIAL HISTORY: History Social History Marital Status: Spouse Name: N/A Number of Children: N/A Years of Education: N/A Occupational History retired 2000 Social History Main Topics Smoking status: Never Smoker Smokeless tobacco: Never Used Comment: nonsmoker/parents smoked Alcohol Use: No Drug Use: No Sexual Activity: Not on file Other Topics Concern Not on file Social History Narrative No narrative on file FAMILY HISTORY: Family History Problem Relation Diabetes Heart Disease Additional Family History Mother osteoporosis/hip fracture ALLERGIES: Allergies Allergen Reactions Sulfa (Sulfonamide Antibiotics) Swelling-Facial Albuterol Tachycardia Cardizem [Diltiazem Hcl] Hives Celebrex [Celecoxib] Diarrhea and Cough Ciprofloxacin Hives and Rash Clarification Needed Patient had steroid injection in shoulder. She and her provider are still trying to find out which part of injection she reacted to. Patient states she was "loopy" for a few days af ter injection Crestor [Rosuvastatin Calcium] muscle/Jt Pain Flecainide Acetate Rash Intestinal discomfort Kapidex [Dexlansoprazole] Diarrhea and Nausea Heart/intest. pain Lactose Cough Intestinal/congestion. Propafenone Intestinal distress. Triamterene-Hydrochlorothiazid BREAST LUMPS Tape Adherent Rash ROS: Review of systems: Otherwise negative besides those mentioned in the HPI PHYSICAL EXAM: BP 127/72 | Pulse 78 | Temp (Src) 37.1 C (98.8 F) (Oral) | RR 16 | Wt 67.359 kg (148 lb 8 oz) | BMI 23.98 kg/(m^2) General: Alert and oriented, comfortable, NAD HEENT: NC/AT, no scleral icterus or lymphadenopathy Respiratory: CTA bilaterally. Cardiovascular: RRR, no g/b/m Abdomen: Soft, NT/ND, no rebound or guarding. Wound: well healed incisional scar Extremities: Warm and well perfused, no edema or cyanosis. Right arm compression dressing in place. Breast exam: the breasts are symmetric with well healed scars billaterally. The nipples are everted bilaterally with tattooing present on the right nipple. There is no obvious skin ch steve, dimpling, or masses outside of her reconstruction. Palpation of the right breast did n ot reveal any dominant masses. There was no right nipple discharge. There was no right axill tavares lymphadenopathy. Palpation of the left breast did not reveal any dominant masses. There was no left nipple discharge. There was no left axillary lymphadenopathy. LABS: None IMAGING: None ASSESSMENT/PLAN: Adriana Flynn is a 69 y.o. female with a history of invasive ductal carcinoma s/p R total m astectomy with R axillary SLNB and subsequent completion axillary lymph node dissection (0/1 6 nodes positive) in 2006 and adjuvant chemotherapy with taxotere/cytoxan, then arimidex. he re for her annual follow up. Continues to do well clinically post-operatively without evide nce of any recurrence. Will plan on seeing her back in one year with another screening mamm ogram and CBE. The above findings and plan were discussed with Dr. Heart, who agrees. Pager [phone] Shaun Corcoran MD R5 Chief Resident [facility] Department of General Surgery documented in this encount er Plan of Treatment Not on filedocumented as of this encounter Procedures + +--------+ + + + | Procedure Name | Priori | Date/Time | Associated Diagnosis | Comments | | | ty | | | | + +--------+ + + + | US BREAST LEFT | Routin | 10/11/2015 | | Results for this | | | e | 12:18 PM | | procedure are in the | | | | PDT | | results section. | + +--------+ + + + documented in this encounter Results US BREAST LEFT (10/11/2015 12:18 PM PDT) + + + + + + | Component | Value | Ref Range | Performed | Pathologist | | | | | At | Signature | + + + + + + | US BREAST | Patient History:Patient | | | | | LEFT | has history of breast | | | | | | cancer at age 62.Family | | | | | | history [...] MA | | | | | | CRISTAL DIAGNOSTIC LEFT | | | | | | W/CAD: October 11, 2015 - | | | | | | | | | | | | and MLO view(s) were | | | | | | taken of the left | | | | | | breast.Prior study | | | | | | comparison: September 24, | | | | | | 2014, AIDE CRISTAL DIAGNOSTIC | | | | | | LEFTw/CAD performed at | | | | | | [facility] | | | | | | [place]. , | | | | | | 2013, MA DIGITAL MAMMO | | | | | | DIAG LEFT w/CAD | | | | | | performed at | | | | | | [facility] | | | | | | [place].There are | | | | | | scattered fibroglandular | | | | | | densities. 3D | | | | | | tomosynthesismammography | | | | | | was performed as part | | | | | | of this exam. There | | | | | | arepost-reduction | | | | | | changes on the left with | | | | | | a 1 cm oval | | | | | | circumscribedmass at | | | | | | 2:00 8 cm from the | | | | | | nipple. No suspicious | | | | | | calcifications.The | | | | | | patient is status post | | | | | | right mastectomy. US | | | | | | BREAST LEFT: October 10, | | | | | | 2015 - Accession #: | | | | | | [id number] the site of | | | | | | the mammographic mass | | | | | | 2:30 6 cm from the | | | | | | nipple,there is a simple | | | | | | cyst measuring 12 x 6 x | | | | | | 10 mm. Adjacent scar | | | | | | ispresent which | | | | | | correlates with the | | | | | | history of reduction. | | | | | | The images were obtained | | | | | | using full field | | | | | | digital mammography | | | | | | onthe dedicated Hologic | | | | | | System with R2 CAD. | | | | | | Performed at | | | | | | [facility] | | | | | | [place]. ASSESSMENT: | | | | | | Benign - Category 2 | | | | | | (Overall)Left breast | | | | | | CRISTAL GORGE LT CAD: Benign | | | | | | - category 2 finding. | | | | | | RECOMMENDATION:Follow-up | | | | | | diagnostic mammogram of | | | | | | the left breast in 1 | | | | | | year.This was discussed | | | | | | with the patient. | | | | | | Attending Radiologists: | | | | | | ESTEFANIA HOLDER MDAuthor: | | | | | | ESTEFANIA HOLDER MD I have | | | | | | personally viewed this | | | | | | procedure/exam, reviewed | | | | | | this report, and | | | | | | madechanges to it where | | | | | | appropriate. | | | | | | Final/Electronically | | | | | | signed / ESTEFANIA HOLDER | | | | | | 10/11/2015 12:29 PM | | | | + + + + + + + + | Specimen | + + | | + + + +---------+ + + | Performing | Address | City/State[facility] | Phone Number | | Organization | | | | + +---------+ + + | [facility] | | | | | RADIOLOGY | | | | + +---------+ + + [place] CRISTAL DIAGNOSTIC LEFT W/CAD (10/11/2015 11:42 AM PDT) + + + + + + | Component | Value | Ref Range | Performed | Pathologist | | | | | At | Signature | + + + + + + | MA CRISTAL | Patient History:Patient | | | | | DIAGNOSTIC | has history of breast | | | | | LEFT W/CAD | cancer at age 62.Family | | | | | | history [...] MA | | | | | | CRISTAL DIAGNOSTIC LEFT | | | | | | W/CAD: October 11, 2015 - | | | | | | | | | | | | and MLO view(s) were | | | | | | taken of the left | | | | | | breast.Prior study | | | | | | comparison: September 24, | | | | | | 2014, AIDE CRISTAL DIAGNOSTIC | | | | | | LEFTw/CAD performed at | | | | | | [facility] | | | | | | [place]. , | | | | | | 2013, AIDE DIGITAL MAMMO | | | | | | DIAG LEFT w/CAD | | | | | | performed at | | | | | | [facility] | | | | | | [place].There are | | | | | | scattered fibroglandular | | | | | | densities. 3D | | | | | | tomosynthesismammography | | | | | | was performed as part | | | | | | of this exam. There | | | | | | arepost-reduction | | | | | | changes on the left with | | | | | | a 1 cm oval | | | | | | circumscribedmass at | | | | | | 2:00 8 cm from the | | | | | | nipple. No suspicious | | | | | | calcifications.The | | | | | | patient is status post | | | | | | right mastectomy. US | | | | | | BREAST LEFT: October 10, | | | | | | 2015 - Accession #: | | | | | | [id number] the site of | | | | | | the mammographic mass | | | | | | 2:30 6 cm from the | | | | | | nipple,there is a simple | | | | | | cyst measuring 12 x 6 x | | | | | | 10 mm. Adjacent scar | | | | | | ispresent which | | | | | | correlates with the | | | | | | history of reduction. | | | | | | The images were obtained | | | | | | using full field | | | | | | digital mammography | | | | | | onthe dedicated Hologic | | | | | | System with R2 CAD. | | | | | | Performed at | | | | | | [facility] | | | | | | [place]. ASSESSMENT: | | | | | | Benign - Category 2 | | | | | | (Overall)Left breast | | | | | | CRISTAL GORGE LT CAD: Benign | | | | | | - category 2 finding. | | | | | | RECOMMENDATION:Follow-up | | | | | | diagnostic mammogram of | | | | | | the left breast in 1 | | | | | | year.This was discussed | | | | | | with the patient. | | | | | | Attending Radiologists: | | | | | | ESTEFANIA HOLDER MDAuthor: | | | | | | ESTEFANIA HOLDER MD I have | | | | | | personally viewed this | | | | | | procedure/exam, reviewed | | | | | | this report, and | | | | | | madechanges to it where | | | | | | appropriate. | | | | | | Final/Electronically | | | | | | signed / ESTEFANIA HOLDER | | | | | | 10/11/2015 12:29 PM | | | | + + [...]
--- OUTSIDE RECORDS SUMMARY | ~2020-05-04 | XMS | Encounter Summary ---
Demographics + + + | Address | [address] | | | [place] [address] | + + + | Home Phone [...] + | Gene Gee | ECON | [address] | | | | | [place], | | | | | [place] [address] | | + + + + + Care Team Providers + +------+ + | Care Property Specialist Name | Role | Phone | + +------+ + | Antony Ribera MD | PCP | | + +------+ + Reason for Visit + + + | Reason | Comments | + + + | Injection | | + + + Encounter Details +--------+ + + + + | Date | Type | Department | Care Team | Description | +--------+ + + + + | 07/06/ | Clinical | [facility] | | Injection | | 2006 | Support | Hematologic | | | | | Staff | [facility] | | | | | | [address] | | | | | | Deisi Naqvi Mailcode: | | | | | | [id number] | | | | | | [place], | | | | | | [place] [address] | | | | | | [phone] | | | +--------+ + + + [...] + + + | Blood Pressure | 90/57 | 07/06/2007 1:55 PM | | | | | PST | | + + + + + | Pulse | 78 | 07/06/2007 1:55 PM | | | | | PST | | + + + + + | Temperature | 36.5 C (97.7 F) | 07/06/2007 1:55 PM | | | | | PST | | + + + + + | Respiratory Rate | 16 | 07/06/2007 1:55 PM | | | | | PST | | + + + + + | Oxygen Saturation | 100% | 07/06/2007 1:55 PM | | | | | PST [...] + documented in this encounter Progress Notes Marilu Sharma Rn - 07/06/2007 2:29 PM PSTNeupogen injection given in right abdomen. Area l eft open to air.Tolerated well. States last time she had injection a bandaid was applied and she reacted. Slight circular redness on left side of abdomen corresponding to the size and shape of ho-chunk bandaids. 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
--- OUTSIDE RECORDS SUMMARY | ~2020-05-04 | XMS | Encounter Summary ---
Demographics + + + | Address | [address] | | | [place] [address] | + + + | Home Phone [...] + | Gene Gee | ECON | [address] | | | | | [place], | | | | | [place] [address] | | + + + + + Care Team Providers + +------+ + | Care Lime Kiln And Recausticizing Operator Name | Role | Phone | + +------+ + | Antony Ribera MD | PCP | | + +------+ + Encounter Details +--------+ + + + + | Date | Type | Department | Care Team | Description | +--------+ + + + + | 11/23/ | Results | Surgical Oncology | Ira Ralph MD | | | 2005 | Only | at [facility] [address] | [address] | | | | | Ave [facility] for | [place], [place] | | | | | Health and [facility], | [address] | | | | | Building [address] | [phone] | | | | | [place], [place] | | | | | | [address] | | | | | | [phone] | | | +--------+ + + + [...] | | + +---------+--------+ + + | MAMMS OUTSIDE FILMS | Imaging | Routin | | 11/23/2005 12:00 AM | | | | e | | PDT | + +---------+--------+ + + | MAMMS OUTSIDE FILMS | Imaging | Routin | | 11/29/2006 12:00 AM | | | | e | | PDT | + +---------+--------+ + + documented as of this encounter Visit Diagnoses Not on filedocumented in this encounter"
--- OUTSIDE RECORDS SUMMARY | ~2020-05-04 | XMS | Encounter Summary ---
Demographics + + + | Address | [address] | | | [place] [address] | + + + | Home Phone [...] + | Gene Gee | ECON | [address] | | | | | [place], | | | | | [place] [address] | | + + + + + Care Team Providers + +------+ + | Care Crown Assembly Machine Operator Name | Role | Phone [...]
--- OUTSIDE RECORDS SUMMARY | ~2020-05-04 | XMS | Encounter Summary ---
Demographics + + + | Address | [address] | | | [place] [address] | + + + | Home Phone [...] + | Gene Gee | ECON | [address] | | | | | [place], | | | | | [place] [address] | | + + + + + Care Team Providers + +------+ + | Care Dip Stand Loader Name | Role | Phone | + +------+ + | Antony Ribera MD | PCP | | + +------+ + Encounter Details +--------+ + + + + | Date | Type | Department | Care Team | Description | +--------+ + + + + | 06/23/ | Documentati | [facility] | Jason, | | | 2010 | on | Center at [facility] [address] | Sheila Garcia MD | | | | | [address] | [address] | | | | | for Health and | [place], [place] | | | | | [facility] | [address] | | | | | [place], [place] | [phone] | | | | | [address] | | | | | | [phone] | | | +--------+ + + + [...]
--- OUTSIDE RECORDS SUMMARY | ~2020-05-04 | XMS | Encounter Summary ---
Demographics + + + | Address | [address] | | | [place] [address] | + + + | Home Phone [...] + | Gene Gee | ECON | [address] | | | | | [place], | | | | | [place] [address] | | + + + + + Care Team Providers + +------+ + | Care Suture Winder Hand Name | Role | Phone | + +------+ + | Antony Ribera MD | PCP | | + +------+ + Reason for Visit + +--------+ + | Reason | Onset | Comments | | | Date | | + +--------+ + | Refill Request | 02/14/ | | | | 2010 | | + +--------+ + Encounter Details +--------+--------+ + + + | Date | Type | Department | Care Team | Description | +--------+--------+ + + + | 02/14/ | Refill | Cardiology | Gary Fuentes MD | Refill Request | | 2010 | | Arrhythmia at [facility] | [address] | | | | | [address] | [address] [place], | | | | | [facility] | [place] [address] | | | | | and Healing, | [phone] | | | | | [facility] | | | | | | Floor [place], [place] | | | | | | [address] | | | | | | [phone] | | | +--------+--------+ + + + [...]
--- OUTSIDE RECORDS SUMMARY | ~2020-05-04 | XMS | Encounter Summary ---
Demographics + + + | Address | [address] | | | [place] [address] | + + + | Home Phone [...] + | Gene Gee | ECON | [address] | | | | | [place], | | | | | [place] [address] | | + + + + + Care Team Providers + +------+ + | Care Global President Name | Role | Phone | + +------+ + | Antony Ribera MD | PCP | | + +------+ + Reason for Visit + +--------+ + | Reason | Onset | Comments | | | Date | | + +--------+ + | Test Results | 01/21/ | esophogeal motility study and 24 hr pH | | | 2012 | | + +--------+ + Encounter Details +--------+ + + + + | Date | Type | Department | Care Team | Description | +--------+ + + + + | 01/21/ | Telephone | Pulmonary & | Charbel Avila, | Test Results | | 2012 | | Critical Care | [facility] | (esophogeal motility | | | | Medicine at | [facility] | study and 24 hr pH) | | | | Physicians [facility] | [address] | | | | | [address] | [place], [place] | | | | | [facility] | [address] | | | | | [place], [facility] | [phone] | | | | | [place], [place] | | | | | | [address] | | | | | | [phone] | | | +--------+ + + + [...] this encounter Miscellaneous Notes Telephone Encounter - Charbel Avila Md - 01/23/2013 6:14 PM PDTSpoke with patient via tele phone for 10 minutes discussing GI studies, which she had been contacted with the results ea dane today by GI. Reviewed the results in detailed, with the conclusion that currently she does not have evidence that GI reflux is contributing to her cough. F/u as previously plan elenita. All questions answered. elephone Encounter - Carmen Roque - 01/21/2013 11:45 AM PDTPatient called to find out results of her esophogeal motility study and 24 hr pH study done 01/07-01/08. The patient will be seeing her PCP this afternoon and would like the results before 2:30 pm if possible. Please call the patient back with these results.Electronically signed by Carmen Roque at 11:46 AM PDTdocumented in this encounter Plan of Treatment Not on filedocumented as of this encounter Visit Diagnoses Not on filedocumented in this encounter"
--- OUTSIDE RECORDS SUMMARY | ~2020-05-04 | XMS | Encounter Summary ---
Demographics + + + | Address | [address] | | | [place] [address] | + + + | Home Phone [...] + | Gene Gee | ECON | [address] | | | | | [place], | | | | | [place] [address] | | + + + + + Care Team Providers + +------+ + | Care Hot Saw Helper Name | Role | Phone | + +------+ + | Antony Ribera MD | PCP | | + +------+ + Reason for Visit + +--------+ + | Reason | Onset | Comments | | | Date | | + +--------+ + | Test Results | 04/12/ | | | | 2008 | | + +--------+ + Encounter Details +--------+ + + + + | Date | Type | Department | Care Team | Description | +--------+ + + + + | 04/12/ | Telephone | Hematology/Medical | Katheryn, | Test Results | | 2008 | | Oncology at [facility] | MD [address] | | | | | [address] | [place], | | | | | Mailcode: CH7 | [place] [address] | | | | | [facility] | [phone] | | | | | and Healing, | | | | | | [facility] | | | | | | Floor [place], [place] | | | | | | [address] | | | | | | [phone] | | | +--------+ + + + [...] encounter Miscellaneous Notes Telephone Encounter - Mireya Cruz Rn - 04/12/2009 11:07 AM PDTE-mail to Dr. Campa to call patient with lab and venous study results. elephone Encounter - Jenny Moody - 04/12/2009 9:41 AM PDT Patient said she is calling for her blood test results and the results from her venous study [phone] signed by Jenny Moody at 04/12/2009 9:41 AM PDTdocumented in this encounter Plan of Treatment Not on filedocumented as of this encounter Visit Diagnoses Not on filedocumented in this encounter"
--- OUTSIDE RECORDS SUMMARY | ~2020-05-04 | XMS | Encounter Summary ---
Demographics + + + | Address | [address] | | | [place] [address] | + + + | Home Phone [...] + | Gene Gee | ECON | [address] | | | | | [place], | | | | | [place] [address] | | + + + + + Care Team Providers + +------+ + | Care Inside Sales Consultant Name | Role | Phone | [...] | | | | cartilage, | [address] | [address] | | | | | unspecified | Rd | Physician's | | | | | Procedures | [place] | Pavilion, | | | | | CONSULT TO | [address] | 4th Floor | | | | | RHEUMATOLOGY | Phone: | [place], [place] | | | | | INFUSION | [phone] | [address] | | | | | UNIT MI INJ | Fax: | Phone: | | | | | | [phone] | [phone] | | | | | [facility] | | Fax: | | | | | D RECL [place] | | [phone] | | | | | THR/PRPH/DX | [...] | +--------+ + + + + | 01/18/ | Telephone | Endocrinology, | Carlos Manuel, Tapan, MD | Lab Results | | 2009 | | Diabetes and | [address] | | | | | Clinical Nutrition | Deisi Naqvi [place], | | | | | [facility] | [place] [address] | | | | | Loop Mailcode: OPC5 | [phone] | | | | | Outpatient Clinic | | | | | | Kylah [place], | | | | | | [place] [address] | | | | | | [phone] | | | +--------+ + + + [...] Telephone Encounter - Tapan Horowitz MD - 01/18/2010 9:25 AM PDTLabs ok. Pt wants 2nd recla st infusion, is familiar with side effect profile.Electronically signed by MD ester Don 01/18/2010 9:25 AM PDTdocumented in this encounter Plan of Treatment Not on filedocumented as of this encounter Visit Diagnoses + + | Diagnosis | + + | Osteopenia - Primary Disorder of bone and cartilage, unspecified | + + documented in this encounter"
--- OUTSIDE RECORDS SUMMARY | ~2020-05-04 | XMS | Encounter Summary ---
Demographics + + + | Address | [address] | | | [place] [address] | + + + | Home Phone [...] + | Gene Gee | ECON | [address] | | | | | [place], | | | | | [place] [address] | | + + + + + Care Team Providers + +------+ + | Care Erp Developer Name | Role | Phone | + +------+ + | Antony Ribera MD | PCP | | + +------+ + Encounter Details +--------+ + + + + | Date | Type | Department | Care Team | Description | +--------+ + + + + | 05/20/ | Results | Hematology/Medical | Stevan Velazquez, | | | 2006 | Only | Oncology at [facility] | [address] | | | | | [address] | [place], [place] | | | | | Mailcode: AUBREY | [address] | | | | | [facility] | [phone] | | | | | and Healing, | | | | | | [facility] | | | | | | Floor [place], [place] | | | | | | [address] | | | | | | [phone] | | | +--------+ + + + [...] + +--------+ + + + | NM CARDIAC BLOOD | Routin | 05/22/2007 | | Results for this | | POOL IMAGING, GATED | e | 3:15 PM | | procedure are in the | | RVG 1 VIEW (AKA CRISTÓBAL | | PST | | results section. | | SCAN) | | | | | + +--------+ + + + | NM CARDIAC BLOOD | Routin | 05/22/2007 | | Results for this | | POOL IMAGING GATED | e | 3:15 PM | | procedure are in the | | 1ST PASS | | PST | | results section. | + +--------+ + + + documented in this encounter Results NM CARDIAC BLOOD POOL IMAGING, GATED RVG MULTIPLE STUDIES PHARMACOLOGIC (05/22/2007 3:15 P M PST) + + + + + + | Component | Value | Ref Range | Performed | Pathologist | | | | | At | Signature | + + + + + + | NM CARD BLD | Radiologist 1: FRED, | | | | | POOL GTD | SHARIFA Nails JR., | | | | | RVG 1VW | M.D.-Radiologist 2: | | | | | | GUERITA BENNETT, | | | | | | M.D.FIRST PASS / RESTING | | | | | | RADIONUCLIDE CARDIAC | | | | | | VENTRICULOGRAM | | | | | | (RVG)COMPARISON: | | | | | | None.PROCEDURE: An | | | | | | aliquot of the patient's | | | | | | red blood cells was | | | | | | taggedwith radioactive | | | | | | tracer using the in | | | | | | vitro method. | | | | | | 22.6milliCuries of | | | | | | tagged RBCs were | | | | | | injected and gated first | | | | | | passimages acquired. | | | | | | Subsequent gated blood | | | | | | pool RVG images | | | | | | wereacquired in GREEK | | | | | | projections.FINDINGS:Lef | | | | | | t Ventricle Ejection | | | | | | Fraction = 62 %. | | | | | | (Normal > 55 %).LEFT | | | | | | VENTRICULAR REGIONAL | | | | | | WALL MOTION is normal in | | | | | | the septal | | | | | | andposterolateral | | | | | | bardales.RIGHT Ventricle | | | | | | Ejection Fraction by | | | | | | Gated First Pass = 58 | | | | | | %.(Normal > 45 | | | | | | %)IMPRESSION:1. LEFT | | | | | | Ventricular Ejection | | | | | | Fraction of 62%.2. | | | | | | RIGHT Ventricular | | | | | | Ejection Fraction of | | | | | | 58%. | | | | + + + [...] | | + +---------+ + + NM CARDIAC BLOOD POOL IMAGING GATED 1ST PASS (05/22/2007 3:15 PM PST) + + + + + + | Component | Value | Ref Range | Performed | Pathologist | | | | | At | Signature | + + + + + + | NM CARD BLD | Radiologist 1: FRED, | | | | | POOL GTD | SHARIFA Nails JR., | | | | | 1ST PASS | M.D.-Radiologist 2: | | | | | | GUERITA BENNETT, | | | | | | M.D.FIRST PASS / RESTING | | | | | | RADIONUCLIDE CARDIAC | | | | | | VENTRICULOGRAM | | | | | | (RVG)COMPARISON: | | | | | | None.PROCEDURE: An | | | | | | aliquot of the patient's | | | | | | red blood cells was | | | | | | taggedwith radioactive | | | | | | tracer using the in | | | | | | vitro method. | | | | | | 22.6milliCuries of | | | | | | tagged RBCs were | | | | | | injected and gated first | | | | | | passimages acquired. | | | | | | Subsequent gated blood | | | | | | pool RVG images | | | | | | wereacquired in GREEK | | | | | | projections.FINDINGS:Lef | | | | | | t Ventricle Ejection | | | | | | Fraction = 62 %. | | | | | | (Normal > 55 %).LEFT | | | | | | VENTRICULAR REGIONAL | | | | | | WALL MOTION is normal in | | | | | | the septal | | | | | | andposterolateral | | | | | | bardales.RIGHT Ventricle | | | | | | Ejection Fraction by | | | | | | Gated First Pass = 58 | | | | | | %.(Normal > 45 | | | | | | %)IMPRESSION:1. LEFT | | | | | | Ventricular Ejection | | | | | | Fraction of 62%.2. | | | | | | RIGHT Ventricular | | | | | | Ejection Fraction of | | | | | | 58%. | | | | + + + + + + + + | Specimen | + + | | + + + +---------+ + + | Performing | Address | City/State/Zipcode | Phone Number | | Organization | | | | + +---------+ + + | [facility] DEPARTMENT OF | | | | | RADIOLOGY | | | | + +---------+ + + documented in this encounter Visit Diagnoses Not on filedocumented in this encounter"
--- OUTSIDE RECORDS SUMMARY | ~2020-05-04 | XMS | Encounter Summary ---
Demographics + + + | Address | [address] | | | [place] [address] | + + + | Home Phone [...] + | Gene Gee | ECON | [address] | | | | | [place], | | | | | [place] [address] | | + + + + + Care Team Providers + +------+ + | Care Kinesiologist Name | Role | Phone | + [...] | | | | | [address] | [place], [place] | | | | | | [address] | [address] | | | | | | [place], | Phone: | | | | | | [place] [address] | [phone] | | | | | | Phone: | Fax: | | | | | | [phone] | [phone] | | | | | | Fax: | | | | | | | [phone] | | +--------+--------+ + + + + Encounter Details +--------+---------+ + + + | Date | Type | Department | Care Team | Description | +--------+---------+ + + + | 10/24/ | Office | Pulmonary & | Juana Kilgore MD | Moderate persistent | | 2018 | Visit | Critical Care | [address] | asthma, unspecified | | | | Medicine at | [address] [place], | whether complicated | | | | [facility] | [place] [address] | (Primary Dx) | | | | [address] | [phone] | | | | | Loop Physician's | | | | | | Pavilion, 3rd Floor | | | | | | [place], [place] | | | | | | [address] | | | | | | [phone] | | | +--------+---------+ + + + [...] + + + | Blood Pressure | 115/67 | 10/24/2017 12:39 PM | | | | | PDT | | + + + + + | Pulse | 71 | 10/24/2017 12:39 PM | | | | | PDT | | + + + + + | Temperature | 35.8 C (96.4 F) | 10/24/2017 12:39 PM | | | | | PDT | | + + + + + | Respiratory Rate | 20 | 10/24/2017 12:39 PM | | | | | PDT | | + + + + + | Oxygen Saturation | 99% | 10/24/2017 12:39 PM | | | | | PDT | | + + + + + | Inhaled Oxygen | - | - | | | Concentration | | | | + + + + + | Weight | 69 kg (152 lb 1.9 | 10/24/2017 12:39 PM | | | | oz) | PDT | | + + + + + | Height | 165 cm (5' 4.96") | 10/24/2017 12:39 PM | | | | | PDT | | + + + + + | Body Mass Index | 25.34 | 10/24/2017 12:39 PM | | | | | PDT | | + + + + + documented in this encounter Patient Instructions Patient Instructions Juana Kilgore MD - 10/24/2017 12:50 PM PDTWhat is my diagnosis/What a m I being treated for? - asthma What is my plan for today s visit (what tests I have to do when I leave, how am I suppose d to use my medications)? - keep taking pulmicort 3 puffs twice daily until the summer, then try decreasing to 2 puff s twice daily - keep taking your tiotropium (spiriva) every day - the levalbuterol is really just when you need it for shortness of breath, coughing, or wh eezing What is the name of the doctor I saw today? -Juana Kilgore MD How do I get in touch with the doctor(s) in case I have a question? -Call [phone] We recommend signing up for [employer] our secure online messaging system that will allow you to communicate with your provider electronically. Directions for signing up are included in this packet. My Chart is an excellent way to ask questions and get advice about non-urgent problems. For more pressing concerns, call our office. In the event of an medical emergency you shou nuria call 911 or present to the nearest Emergency Room. documented in this encounter Progress Notes Iveth Palacios MA - 10/24/2017 12:50 PM PDT1. In the past 4 weeks, how much time did your asthma keep you from getting as much done at work, school, or home? 3 - Some of the time 2. During the past 4 weeks, how often have you had shortness of breath? 2 - Once a day 3. During the past 4 weeks, how often did your asthma symptoms (wheezing, coughing, shortne ss of breath, chest tightness, or pain) wake you up at night or earlier than usual in the mo rning? 3 - Once a week 4. During the Past 4 weeks, how often have you used your rescue inhaler or nebulizer medica tion (such as albuterol)? 2 - 1 or 2 times per day 5. How would you rate your asthma control during the past 4 weeks? 3 - Somewhat controlled Total Score: 13 Score ?20 - well controlled Score ? 19 - not well controlled uana Kilgore MD - 0 10/24/2017 12:50 PM PDT Chief Complaint / ID: 72 year old woman with moderate persistent asthma. Interval History: Ms Flynn is a 72 year-old woman returning to pulmonary clinic for managem ent of moderate persistent asthma. Her pulmonary history is also notable for Sjogren syndrom e and prior PE. She was last seen in 05/2017 by me. At that time, she was just getting over an exacerbation. She did not tolerate montelukast, and zileuton was prohibitively expensive. She does have GERD but was sleeping with the bed elevated. At last visit I had considered a llergy testing pending her future clinical course. Her regimen has been: - pulmicort- 2-3 puffs per day - tiotropium - levalbuterol prn - encouraged her to use as needed - ipratropium prn - again, as needed - fluticasone and ipratropium nasal spray Since last visit, she has had a rough winter. In July had influenza, then rapid A fib t hen an admission for congestive heart failure followed by RSV! Only recently has been feelin g better. She is still on the above meds. Does NOT use albuterol given tachyarrhythmias. She is now NOT needing the prn nebulizers. I think her low ACT today reflects her recent illne sses more than chronic asthma control - a bit tough to say. Just in the last day she has noted LE edema - has not been a problem since admission. Not o n a diuretic. Lost 13 lbs fluid weight but has gained 4-5 lbs back. Keeping track of weights closely. She feels she is slowly getting back to normal. Immunizations Immunization History Administered Date(s) Administered Influenza, seasonal, intradermal pfree 05/03/2017 Influenza, split 04/17/2008 Pneumococcal 23 05/03/2017 Past medical, surgical and social history were reviewed and are unchanged except as noted red aburto. PMH Past Medical History Diagnosis Date Sjogrens syndrome (HCC) 1995 Fibromyalgia 1995 Mitral valve prolapse 1989 GERD (gastroesophageal reflux disease) 1995 TMJ (dislocation of temporomandibular joint) Skin cancer back Small bowel obstruction 07/20,10/19,02/19 Bursitis 2006 Plantar fascial fibromatosis 2007 plantar fascial tear Breast cancer (HCC) 02/2007 s/p chemo with taxotere/cytoxan Shingles Pulmonary embolus (HCC) 09/2008 Atrial tachycardia (HCC) RA stacey tach ablated 2004 at [facility]. Repeat EPS showed only non-sustained left atrial tac hycardia Arrhythmia afib Asthma Medications Current Outpatient Prescriptions Medication Sig calcium citrate-vitamin D (CITRACAL + D) 315-200 [...] hours as needed (Shortness of breath). lactobac b #[id number]-[id number] 300-250 million cell-mg oral capsule Take by [...] 1 tablet by mouth o nce daily. PULMICORT FLEXHALER 180 mcg/actuation inhalation aerosol powdr breath activated INHALE THREE PUFFS BY MOUTH TWICE A DAY rabeprazole (ACIPHEX) 20 mg Oral Tablet, Delayed Release (E.C.) Take 20 mg by mouth wyatt ry twelve hours. rivaroxaban 20 mg oral tablet Take 1 tablet by mouth once daily with dinner tiotropium 1.25 mcg/actuation inhalation mist Inhale 2 puffs once daily. Indications: M aintenance Therapy for Asthma Vitamin A-Vitamin C-Vit E-Min (ANTIOXIDANT FORMULA) Oral Capsule take 1 capsule by oral route once daily with food VITAMIN D ORAL 3000 IU daily No current facility-administered medications for this visit. ROS Aside from pertinent positives and negatives noted above, the remainder of a complete ROS i s negative in detail. Physical Exam BP 115/67 | Pulse 71 | Temp (Src) 35.8 C (96.4 F) (Forehead) | RR 20 | Ht 1.65 m (5' 4. 96") | Wt 69 kg (152 lb 1.9 oz) | SpO2 99% | BMI 25.34 kg/(m^2) Well appearing elderly woman in NDA Mallampati I airway No nodes RRR Breathing easily on room air. No wheezes, rhonchi, or crackles. 1+ pitting edema No apparent rash Fluent speech Normal affect Data Reviewed Today PFTs Ped Pre Spirometry Latest Ref Rng & Units 10/24/2017 10/02/2016 10/22/2012 FVC PRE 2.97 L 2.37 2.32 2.69 FVC PRE (%REF) % 79 76 82 FEV1 PRE 2.23 L 1.76 1.63 1.75 FEV1 PRE (%REF) % 78 71 70 FEV1/FVC PRE 75 % 74 70 65 FEV1/FVC PRE (%REF) % 99 93 - HLN80-12% PRE 1.76 L/sec 1.26 0.98 0.89 RXO15-55% PRE (%REF) % 71 53 43 PEF PRE 5.47 L/sec 6.43 5.52 6.52 PEF PRE (%REF) % 117 99 108 PFT's Lung Volumes TLC Pre TLC % RV Pre RV % DLCO Adj Pre DLCO Adj % 6 Minute Walk 10/24/17 1035 4.64 89 2.20 94 17.84 87 Today's spirometry is normal. Lung volumes are normal. DLCO is normal. Flow volume loop esvin ws scooping in expiratory limb consistent with small airways obstruction IMPRESSION 72 year old woman with asthma and atrial arrhythmias here to follow up after several viral respiratory tract infections. Today we discussed how to prevent similar infections in the fu ture (immunization, etc). No way to prevent RSV with vaccination unfortunately. I don't thin k there is a change in her asthma medications that have a meaningful impact in reducing furt her respiratory viral infections. It does not sound like she had bacterial pneumonia, but in haled corticosteroids are associated with higher risk of pneumonia so if anything I'd decrea se her pulmicort once she gets through allergy season. Looks well today, gives history of im provement, and PFTs are stable, so don't think we need to escalate chronic asthma management . Reviewed when and which inhalers to use - no real need for ipratropium oral inhaler given t iotropium. RECOMMENDATIONS & PLAN 1. Continue pulmicort 3 puffs BID but decrease to 2 puffs BID after spring allergy season o yajaira 2. Continue spiriva daily 3.Continue nasal sprays 4. OK to keep prednisone at home and take for acute exacerbation but call PCP or me if ida madden RTC 1 year but call any time with issues before then. Her PCP is leaving [place] and [place] is a real shortage of primary care providers there. They are now going to [place] [facility] [facility] for her cardiac care. Juana Kilgore MD documented in this enco unter Plan of Treatment Not on filedocumented as of this encounter Visit Diagnoses + + | Diagnosis | + + | Moderate persistent asthma, unspecified whether complicated - Primary | + + documented in this encounter
--- OUTSIDE RECORDS SUMMARY | ~2020-05-04 | XMS | Encounter Summary ---
Demographics + + + | Address | [address] | | | [place] [address] | + + + | Home Phone [...] + | Gene Gee | ECON | [address] | | | | | [place], | | | | | [place] [address] | | + + + + + Care Team Providers + +------+ + | Care Vice President Of Nursing Name | Role | Phone | + +------+ + PCP | Unavailable | + +------+ + Encounter Details +--------+ + + + + | Date | Type | Department | Care Team | Description | +--------+ + + + + | 03/14/ | Results | | Other, Faculty | | | 2004 | Only | | [phone] | | +--------+ + + + + [...] | + +--------+ + + + | DERMATOPATHOLOGY(WET | Routin | 03/14/2005 | | Results for this | | [facility]) | e | | | procedure are in the | | | | | | results section. | + +--------+ + + + documented in this encounter Results DERMATOPATHOLOGY(WET [facility]) (03/14/2005) + + + + + + | Component | Value | Ref Range | Performed | Pathologist | | | | | At | Signature | + + + + + + | DERMATOPATH | SOURCE OF SPECIMEN:A | | | | | OLOGY(WET | FIRST TISSUE LEVEL IV | | | | | MNT) | [id number] CLINICAL | | | | | | DESCRIPTION:Excision, | | | | | | left upper medial | | | | | | scapular; pearly papule; | | | | | | BCC evaluate margins. | | | | | | GROSS DESCRIPTION:Lt. up | | | | | | medial scapula, | | | | | | fragment, 0.8 x 0.8 x | | | | | | 0.8 cm, inked, | | | | | | trisected. MICROSCOPIC | | | | | | DESCRIPTION:There are | | | | | | aggregates of cells with | | | | | | hyperchromatic nuclei, | | | | | | scant cytoplasmand | | | | | | palisading of the | | | | | | peripheral nuclei. 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 NOTE: The | | | | | | residual basal cell | | | | | | carcinoma appears to be | | | | | | completely excisedin | | | | | | these sections. | | | | | | CRW:iac9/6/05Rendering | | | | | | Diagnostician: Esteban | | | | | | Brenna Corcoran Jr., | | | | | | Ankita | | | | | | will Augustine 03/21/2005 | | | | + + + + + + + + | Specimen | + + | | + + + + + | Narrative | Performed At | + + + | Ordered maggie Phillips | | + + + + + + + + | Performing | Address | City/State/Zipcode | Phone Number | | Organization | | | | + + + + + | [facility] | [address] | [place] [address] | | | DERMATOPATHOLOGY | [address] | | | + + + + + documented in this encounter Visit Diagnoses Not on filedocumented in this encounter"
--- OUTSIDE RECORDS SUMMARY | ~2020-05-04 | XMS | Encounter Summary ---
Demographics + + + | Address | [address] | | | [place] [address] | + + + | Home Phone [...] + | Gene Gee | ECON | [address] | | | | | [place], | | | | | [place] [address] | | + + + + + Care Team Providers + +------+ + | Care Regional Training Manager Name | Role | Phone | + +------+ + | Antony Ribera MD | PCP | | + +------+ + Encounter Details +--------+ + + + + | Date | Type | Department | Care Team | Description | +--------+ + + + + | 07/24/ | Documentati | Cardiology | Elijah Whalen, | | | 2018 | on | Arrhythmia at [facility] | [address] | | | | | [address] | [address] | | | | | [facility] | [place], [place] | | | | | and Healing, | [address] | | | | | [place] [address] [facility] | [phone] | | | | | Floor [place], [place] | | | | | | [address] | | | | | | [phone] | | | +--------+ + + + [...] this encounter Miscellaneous Notes Telephone Encounter - Elijah Whalen MD - 07/24/2017 11:13 AM PSTI reviewed scanned clini c note and echo report (moderate MR, moderate LAE, EF 50-55%) PAS please schedule patient to see me on 08/14/16 in follow-up. documented in this encounter Plan of Treatment Not on filedocumented as of this encounter Visit Diagnoses Not on filedocumented in this encounter"
--- OUTSIDE RECORDS SUMMARY | ~2020-05-04 | XMS | Encounter Summary ---
Demographics + + + | Address | [address] | | | [place] [address] | + + + | Home Phone [...] + | Gene Gee | ECON | [address] | | | | | [place], | | | | | [place] [address] | | + + + + + Care Team Providers + +------+ + | Care Central Supply Tech Name | Role | Phone | + +------+ + | Alec Hill MD | PCP | | + +------+ + Encounter Details +--------+ + + + + | Date | Type | Department | Care Team | Description | +--------+ + + + + | 05/22/ | Ancillary | Registration [id number] | Stevan Velazquez, | | | 2006 | Registratio | [address] | [address] | | | | n | [place]iss Mailcode: [id number] | [place], [place] | | | | | [place], [place] | [address] | | | | | [address] | [phone] | | | | | [phone] | | | +--------+ + + + [...]
--- OUTSIDE RECORDS SUMMARY | ~2020-05-04 | XMS | Encounter Summary ---
Demographics + + + | Address | [address] | | | [place] [address] | + + + | Home Phone [...] + | Gene Gee | ECON | [address] | | | | | [place], | | | | | [place] [address] | | + + + + + Care Team Providers + +------+ + | Care Assistant Front End Manager Name | Role | Phone | [...] Description | +--------+---------+ + + + | 05/27/ | Office | Hematology/Medical | Steavn Velazquez, | Breast Cancer | | 2008 | Visit | Oncology at [facility] | [address] | (Primary Dx) | | | | [address] | [place], [place] | | | | | Mailcode: [facility] | [address] | | | | | [facility] | [phone] | | | | | and [place], | | | | | | [facility] | | | | | | Floor [place], [place] | | | | | | [address] | | | | | | [phone] | | | +--------+---------+ + + + [...] + + + | Blood Pressure | 120/69 | 05/27/2009 1:12 PM | | | | | PST | | + + + + + | Pulse | 73 | 05/27/2009 1:12 PM | | | | | PST | | + + + + + | Temperature | 36.9 C (98.5 F) | 05/27/2009 1:12 PM | | | | | PST | | + + + + + | Respiratory Rate | 14 | 05/27/2009 1:12 PM | | | | | PST | | + + + + + | Oxygen Saturation | - | - | | + + + + + | Inhaled Oxygen | - | - | | | Concentration | | | | + + + + + | Weight | 66 kg (145 lb 8.1 | 05/27/2009 1:12 PM | | | | oz) | PST | | + + + + + | Height | - | - | | + + + + + | Body Mass Index | 23.84 | 12/29/2008 10:13 AM | | | | | PDT | | + + + + + documented in this encounter Progress Notes Stevan Velazquez MD - 05/27/2009 1:22 PM PSTFormatting of this note might be [...] diverti culitis and ruptured of hepatic cyst. Earlier this year, she had bouts of SOB and work up re vealed possible pulmonary hypertension which was not confirmed on pulmonary angiogram. 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 Dopplers showed right sided below the knee D VT. She was on coumadin for 6 months and continues on arimidex. She saw Dr. Campa two m onths ago at which time repeat lower ext Dopplers was done which was negative. She was taken off coumadin at that time. She is here today with her for follow up. She is on her way to [place] tomorrow. S- Adriana saw our esteemed Dr. Campa who decided that Adriana would not need intermediate an ti-coagulation. Not needing coumadin. Adriana is most pleased with that. Dr. Campa discussed with her regarding Vascular referral for lower ext, left sided- we aring special stocking- did stripping before many years ago Feeling really good Physical therapy for rotator cuff injury- for three weeks now and slowly improving. Was toning her muscle two days a week with strengthening exercise- pilate twice a week in a ddition. Breathing is good. No coughing No SOB Hiking well in the field- a mile in the field- several times a week or riding her bike ofte n No N/V No chest pain or pressure Appetite is good A little pain in her right lower abd- last few days- BM is good- daily. No constipation. Ca kanwal is concerned about that as she is leaving for [place] tomorrow with her and grand-julius shilater. No bloody or tarry stool No fever but chills once in a while 145 pounds- 140-142. Going to [place] tomorrow morning- one week Taking her 13 y/o grand-daughter with her Doing OK with arimidex "Hot" for a minute- no interfering with her work or sleep No sweating Palpitations- skipping beats more- atenolol now up to 50 mg daily. tofetilide the same. Did reclast Will return in 6 month with another bone density and see Dr. Horowitz at endocrine. Physical therapy for her right shoulder- would like to see ortho in Jul is not resolved by then. Psyllium as needed and stool softener twice a day. O- Filed Vitals: 05/27/2009 1:12 PM Weight: 66 kg (145 lb 8.1 oz) BP: 120/69 Pulse: 73 Temp: 36.9 C (98.5 F) TempSrc: Oral Resp: 14 PainSc: 0 - Zero alert and oriented Not pale or icteric No oral lesion Neck supple No JVE Chest, symmetric expansion, breathing sound is clear No wheezing or rales Heart, RR, no murmur or gallop Abd, soft and non tender, no liver or spleen or mass palpable. No increased rigidity or javon ound No knocking pain down her spine No CVA tenderness Lymphatics- no cervical, axillary, supra-clav or infra-clav LAD palpable Breast exam not done today, as patient will be seen by Dr. Heart later at surg onc. Neuro intact Lab- DE DIAGNOSTIC MAMMO LEFT W/CAD: May 27, 2009 - CC, MLO, and XCCL view(s) were taken of the left breast. Prior study comparison: May 21, 2008, [facility] DIG MAMMO DIAG LEFT. December 05, 2007, [facility] DIG MAMMO DIAG LEFT. The breast tissue is heterogeneously dense. This may lower the sensitivity of mammography. There are innumerable unchanged benign appearing punctate microcalcifications on the left, consistent with benign adenosis. A 1 cm cyst like density in the medial left breast on the last 2 exams, is now absent The patient is status post right mastectomy. No images. No significant changes when compared with prior studies. The images were obtained using full field digital mammography on the dedicated Stremor System with R2 CAD. Performed at [facility]. ASSESSMENT: Benign - Category 2 RECOMMENDATION: Routine screening mammogram of the left breast in 1 year. LOWER EXTREMITY VENOUS EXAMINATION: 04/06/2009 Dictated 04/06/2009 INDICATION: Leg pain. FINDINGS: The deep and superficial veins of both lower extremities were examined with the duplex scanner. There are normal flows and responses to augmentation and compression maneuvers in the deep and superficial veins bilaterally. There is no evidence of DVT bilaterally. IMPRESSION: Normal bilateral lower extremity venous examination. There is no evidence of DVT bilaterally. A/P- overall Adriana is doing well. Her energy level has much improved and she does not have any more respiratory symptoms. She is concerned about some vague recurrent pain in her belly which she thinks could be related to stress. She and her would watch that very very closely as they are flying out to [place] tomorrow. She is moving her bowel daily and normally. There is no passage of bloody or tarry stool and she is eating OK she is not having too much trouble with joint pain or hot flushes or atrophic vaginitis. She will see Dr. Horowitz for fo llow up Dexa scan and she is now on yearly reclast. She will follow up with her PCP yearly f or lipid panel . We will see her back in 4 months. Will discuss with Dr. Katheryn madden referral to vascular surgery. -- Lipid panel in Dec by PCP. 5:2 8 PM PSTdocumented in this encounter Miscellaneous Notes Scan - Ligia Faculty - 09/02/2009 11:56 AM PST can - Jhonatan Strong aculty - 06/09/2009 8:35 AM PST documented in t his encounter Plan of Treatment Not on filedocumented as of this encounter Visit Diagnoses + + | Diagnosis | + + | Breast Cancer - Primary Malignant neoplasm of breast (female), unspecified site | + + documented in this encounter
--- OUTSIDE RECORDS SUMMARY | ~2020-05-04 | XMS | Encounter Summary ---
Demographics + + + | Address | [address] | | | [place] [address] | + + + | Home Phone [...] + | Gene Gee | ECON | [address] | | | | | [place], | | | | | [place] [address] | | + + + + + Care Team Providers + +------+ + | Care Money Order Clerk Name | Role | Phone | [...] + | Closed | | Gastroenterol | | | [id number] | | | | ogy | | | Proc Unit | | | | | | | [address] | | | | | | [address] | | | | | | | Mailcode: [facility] | | | | | | | [facility] | | | | | | | for Health | | | | | | | and Healing, | | | | | | | [address] | | | | | | | [place], [place] | | | | | | | [address] | | | | | | | Phone: | | | | | | | [phone] | | | | | | | Fax: | | | | | | | [phone] | +--------+--------+ + + + + Encounter Details +--------+ + + + + | Date | Type | Department | Care Team | Description | +--------+ + + + + | 01/12/ | Hospital | [facility] | Ki Lo | | | 2009 | Encounter | [address] | MD Dez [address] | | | | [address] Mailcode: [facility] | [address] [place], | | | | | [facility] | [place] [address] | | | | | Health and Healing, | [phone] | | | | | [address] | | | | | | [place], [place] | | | | | | [address] | | | | | | [phone] | | | +--------+ + + + [...] + + + | Blood Pressure | 123/72 | 01/12/2010 3:00 PM | | | | | PDT | | + + + + + | Pulse | 67 | 01/12/2010 3:00 PM | | | | | PDT | | + + + + + | Temperature | - | - | | + + + + + | Respiratory Rate | 16 | 01/12/2010 3:00 PM | | | | | PDT | | + + + + + | Oxygen Saturation | 98% | 01/12/2010 3:00 PM | | | | | PDT | | + + + + + | Inhaled Oxygen | - | - | | | Concentration | | | | + + + + + | Weight | 65.3 kg (144 lb) | 01/12/2010 12:50 PM | | | | | PDT | | + + + + + | Height | 167.6 cm (5' 6") | 01/12/2010 12:50 PM | | | | | PDT | | + + + + + | Body Mass Index | 23.24 | 01/12/2010 12:50 PM | | | | | PDT | | + + + + + documented in this encounter Discharge Instructions Instructions Keara Gabriel RN - 01/12/2010 Home Care Instructions after EGD (Upper Endoscopy) You may resume your normal diet and medications unless told otherwise. Medications The medications you received for your procedure can cause you to be forgetful and drowsy an d will take the remainder of the day to wear off. DO NOT drink alcohol, drive, operate heavy machinery, sign legal documents, or make major d ecisions until tomorrow. Common After Effects Mild abdominal pain, bloating, and gas. Sore throat. You may treat it with throat lozenges and/or gargle with warm salt water. You may bruise at your IV site. If you have pain, redness, or swelling at your IV site, apply a warm compress. Complications Call your GI doctor if you have: Abnormal pain or any new unexplained symptoms. Shortness of breath, chest or neck pain. Vomiting blood or rectal bleeding. Fever above 101.5 Redness, pain, or swelling at your IV site that is not relieved with warm compress. For any questions related to your procedure, call Sunday- Sunday 8:00- 4:30 Endoscopy Toll Free ext [phone] or After business hours, or on weekends and holiday Hospital OperatorToll Free -[phone] ext. [phone] and have the GI doctor concert manager paged. The provider who performed your procedure is: Dr Lo Results of your exam: Normal exam. Helms placed. Please follow the direction given. Follow up Appointments with: Referring provider Your primary care provider or Referring provider will receive copies of the procedure repo rt and all the pathology reports with recommendations for treatment if needed. documented in this encounter Medications at Time [...] Miscellaneous Notes Scan - Other, Faculty - 01/19/2010 5:18 PM PDT Scan - Other, Faculty - 01/19/2010 5:18 PM PDT documented in this encounter Plan of Treatment Not on filedocumented as of this encounter Visit Diagnoses Not on filedocumented in this encounter Administered Medications + +--------+ +---------+------+------+ | Medication Order | MAR | Action | Dose | Rate | Site | | | Action | Date | | | | + +--------+ +---------+------+------+ | fentanyl (aka SUBLIMAZE) | Given | 01/13/20 | 100 mcg | | | | injection 25-300 mcg 25-300 mcg, | | 10 2:31 | | | | | intravenous, HSD PRN, Starting | | PM PDT | | | | | 01/12/10 at 1431, Until Wed | | | | | | | 01/12/10 at 0, moderate pain, | | | | | | | sedation/analgesia | | | | | | + +--------+ +---------+------+------+ + +---+ | | | + +---+ | fentanyl (aka SUBLIMAZE) | | | injection 1 dose, Starting Wed | | | 01/12/10 at 1418, Until Wed | | | 01/12/10 at 1431 | | + +---+ | | | + +---+ + +-------+ +------+---+---+ | midazolam (aka VERSED) | Given | 01/13/20 | 3 mg | | | | injection 1-10 mg 1-10 mg, | | 10 2:32 | | | | | intravenous, HSD PRN, Starting | | PM PDT | | | | | 01/12/10 at 1431, Until Wed | | | | | | | 01/12/10 at 2120, sedation | | | | | | + +-------+ +------+---+---+ + +---+ | | | + +---+ | midazolam (aka VERSED) | | | injection 1 dose, Starting Wed | | | 01/12/10 at 1418, Until Wed | | | 01/12/10 at 1432 | | + +---+ | | | + +---+ documented in this encounter
--- OUTSIDE RECORDS SUMMARY | ~2020-05-04 | XMS | Encounter Summary ---
Demographics + + + | Address | [address] | | | [place] [address] | + + + | Home Phone [...] + | Gene Gee | ECON | [address] | | | | | [place], | | | | | [place] [address] | | + + + + + Care Team Providers + +------+ + | Care Camera Engineer Name | Role | Phone | + +------+ + | Antony Ribera MD | PCP | | + +------+ + Encounter Details +--------+ + + + + | Date | Type | Department | Care Team | Description | +--------+ + + + + | 04/09/ | Telephone | Cardiology - | Monique Middleton, | | | 2005 | | General [address] | [employer]ER | | | | | [address] | | | | | | Mailcode: [id number] | | | | | | [facility] | | | | | | [address] [place], | | | | | | [place] [address] | | | | | | [phone] | | | +--------+ + + + [...] Telephone Encounter - Monique Middleton Np - 04/09/2006 9:27 AM PDTCalled about arrhythmias. Is taking moricizine 200mg twice daily but still having breakthroughs. Will increase to t hree times daily and call with results. Stressful time now--involved with trial concerning granddaughter's . d ocumented in this encounter Plan of Treatment Not on filedocumented as of this encounter Visit Diagnoses Not on filedocumented in this encounter"
--- OUTSIDE RECORDS SUMMARY | ~2020-05-04 | XMS | Encounter Summary ---
Demographics + + + | Address | [address] | | | [place] [address] | + + + | Home Phone [...] + | Gene Gee | ECON | [address] | | | | | [place], | | | | | [place] [address] | | + + + + + Care Team Providers + +------+ + | Care Loss Claim Clerk Name | Role | Phone | + +------+ + | Antony Ribera MD | PCP | | + +------+ + Encounter Details +--------+ + + + + | Date | Type | Department | Care Team | Description | +--------+ + + + + | 09/24/ | Abstract | Cardiology | Elijah Whalen, | | | 2018 | | Arrhythmia at [facility] | [address] | | | | | [address] | [address] | | | | | [facility] | [place], [place] | | | | | and Healing, | [address] | | | | | [facility] | [phone] | | | | | Floor [place], [place] | | | | | | [address] | | | | | | [phone] | | | +--------+ + + + [...]
--- OUTSIDE RECORDS SUMMARY | ~2020-05-04 | XMS | Encounter Summary ---
Demographics + + + | Address | [address] | | | [place] [address] | + + + | Home Phone [...] + | Gene Gee | ECON | [address] | | | | | [place], | | | | | [place] [address] | | + + + + + Care Team Providers + +------+ + | Care Bundle Helper Name | Role | Phone | + +------+ + | Antony Ribera MD | PCP | | + +------+ + Encounter Details +--------+ + + + + | Date | Type | Department | Care Team | Description | +--------+ + + + + | 05/26/ | Telephone | Digestive Health | Alea Noriega MD | | | 2007 | | [place] [address] | [address] | | | | | [address] [place] | [address] [place], | | | | | for Health and | [place] [address] | | | | | [place] [address] | [phone] | | | | | [place], [place] | | | | | | [address] | | | | | | [phone] | | | +--------+ + + + [...] this encounter Miscellaneous Notes Telephone Encounter - Alea Noriega - 05/26/2008 2:50 PM PSTCalled patient to let her know thu t I reviewed her two most recent CT scans, and no significant change was noted in regard to her dilated CBD. No obstructing mass and the duct tapers normally to the ampulla. In revie w of her LFTs, she has essentially had normal labs except for when she had her hepatic cysts resected. At this time will continue to watch. She adds on the phone today that she had another attack of impending obstruction with abdom inal pain, vomiting, and lack of BM. This has since resolved with change in diet and massag ing area. I stated that I think we should still do SBFT to evaluate for SB lesions, althoug h this is most likely 2/2 to adhesions. Patient understood. Order placed and I gave her th e phone to make her appt. documen dean in this encounter Plan of Treatment Not on filedocumented as of this encounter Procedures + +--------+ + + + | Procedure Name | Priori | Date/Time | Associated Diagnosis | Comments | | | ty | | | | + +--------+ + + + | X-RAY UGI W SMALL | Routin | 06/05/2008 | Small Bowel | Results for this | | BOWEL W MX SERIAL | e | 7:43 AM | Obstruction (HCC) | procedure are in the | | | | PST | | results section. | + +--------+ + + + documented in this encounter Results X-RAY UGI W SMALL BOWEL W MX SERIAL (06/05/2008 7:43 AM PST) + + + + + + | Component | Value | Ref Range | Performed | Pathologist | | | | | At | Signature | + + + + + + | UGI W SMALL | Upper GI Series with | | | | | BOWEL W MX | Small Bowel | | | | | SERIAL | Follow-Through: | | | | | | 06/05/2008.Comparison: | | | | | | 07/19/2004.Clinical | | | | | | History: Recurrent | | | | | | history of partial small | | | | | | | | | | | | bowelobstruction.Procedu | | | | | | re: After a | | | | | | preliminary abdominal | | | | | | radiograph was | | | | | | obtained,the procedure | | | | | | was performed by Dr. Perla, | | | | | | vice president lending, | | | | | | under thedirect | | | | | | supervision of | | | | | | Marcy, attending | | | | | | radiologist. | | | | | | Afteradministration of | | | | | | effervescent crystals | | | | | | and a small volume of | | | | | | water,the patient | | | | | | ingested barium. | | | | | | Serial fluoroscopic | | | | | | and plainradiographic | | | | | | images were obtained as | | | | | | contrast passed through | | | | | | theesophagus, stomach | | | | | | and small | | | | | | intestine.Findings:Preli | | | | | | minary KUB radiograph: | | | | | | The bowel gas pattern | | | | | | was normal | | | | | | withoutevidence for | | | | | | obstruction. Surgical | | | | | | clips in the right upper | | | | | | quadrantwas noted in | | | | | | keeping with history of | | | | | | prior cholecystectomy. | | | | | | Noorganomegaly, | | | | | | abnormal calcifications, | | | | | | or bone abnormalities | | | | | | wereseen. A moderate | | | | | | amount of fecal material | | | | | | was identified in | | | | | | thecolon and | | | | | | rectum.Upper GI Series: | | | | | | The esophagus was | | | | | | normal in course, | | | | | | contour, andmotility. | | | | | | A single episode of | | | | | | minimal tertiary | | | | | | contractions wasnoted. | | | | | | A very small hiatal | | | | | | hernia was identified. | | | | | | There was | | | | | | nospontaneous | | | | | | gastroesophageal reflux; | | | | | | however, mild | | | | | | gastroesophagealreflux | | | | | | could be elicited with | | | | | | coughing. The stomach | | | | | | and duodenumwere | | | | | | unobstructed and normal | | | | | | in appearance. Of | | | | | | note, the distalaspect | | | | | | pylorus remained | | | | | | persistently narrowed | | | | | | throughout the | | | | | | study.Unable to obtain | | | | | | images of the pylorus | | | | | | distending fully during | | | | | | thecourse of the exam. | | | | | | Nonetheless, contrast | | | | | | passed easily through | | | | | | theantrum/pylorus into | | | | | | the duodenum and small | | | | | | bowel. | | | | | | Theduodenal-jejunal | | | | | | junction was | | | | | | normal.Small Bowel | | | | | | Follow Through: | | | | | | Gastrocolic transit | | | | | | time was 60 minutes. The | | | | | | jejunum and ileum were | | | | | | normal in caliber | | | | | | without foldthickening, | | | | | | inflammation, stricture, | | | | | | or obstruction. No | | | | | | abnormalmass effect was | | | | | | seen. The terminal | | | | | | ileum insertion into the | | | | | | cecumappeared slightly | | | | | | higher than expected | | | | | | within the right | | | | | | lowerabdomen. No | | | | | | evidence of tethering | | | | | | was noted.IMPRESSION:1. | | | | | | No evidence of bowel | | | | | | obstruction. | | | | | | Gastrocolic transit | | | | | | time of 60minutes and | | | | | | slightly higher than | | | | | | expected insertion of | | | | | | terminal ileuminto cecum | | | | | | without suggestion of | | | | | | tethering, mass effect, | | | | | | orstricture.2. Tiny | | | | | | hiatal hernia with | | | | | | minimal gastroesophageal | | | | | | reflux elicitedby | | | | | | coughing.END IMPRESSIONI | | | | | | have personally viewed | | | | | | this procedure/exam and | | | | | | reviewed this | | | | | | report.Author: | | | | | | Declan DUFFReviewer: | | | | | | ESTEFANIA MAGANA M.D.STATUS | | | | | | FINAL / Dr. MAC | | | | | | SHANE PENDING | | | | | | FINAL APPROVAL / | | | | | | DOLORES PEREZ RESULT | | | | | | MODIFIED / Dr. BERNAL | | | | | | SHELBISTAT PENDING FINAL | | | | | | APPROVAL / Dr. BERNAL | | | | | | YUSTATUS PRELIMINARY - | | | | | | UNSIGNED / Dr. DOLORES PERLA | | | | + + + [...] + | Diagnosis | + + | Small bowel obstruction (HCC) - Primary Unspecified intestinal obstruction | + + documented in this encounter"
--- OUTSIDE RECORDS SUMMARY | ~2020-05-04 | XMS | Encounter Summary ---
Demographics + + + | Address | [address] | | | [place] [address] | + + + | Home Phone | | + + + | Preferred Language | Unknown | + + + | Marital Status | | + + + | Temple Affiliation | 1013 | + + + | Race | White | + + + | Ethnic Group | Not or | + + + Author + + + | Author | [facility] | | | and [place] | + + + | Organization | [facility] | | | [...] Team Providers + +------+ + | Care Pecan Mallow Dipper Name | Role | Phone | + +------+ + | Alec Hill MD | PCP | | + +------+ + Encounter Details +--------+ + + + + | Date | Type | Department | Care Team | Description | +--------+ + + + + | 01/30/ | Orders Only | [facility] | Martin Kelley, | | | 2018 | | CARDIOLOGY ELIZA | [address] | | | | | [address] | [place], | | | | | [place] | [place] [address] | | | | | [address] | [phone] | | | | | [phone] | | | +--------+ + + + + Social History + +-------+ +--------+------+ | Tobacco Use | Types | Packs/Day | Years | Date | | | | | Used | | + +-------+ +--------+------+ | Never Smoker | | | | | + +-------+ +--------+------+ + + | Comments: second hand smoke [...] | | | | | [place] [address] | | | | | | [phone] | | | | | | | | +--------+ + + + + | 05/19/ | Appointment | Cardiology | Martin Kelley, | | | 2019 | | | MD [address] | | | | | | [place] | | | | | | [place] [address] | | | | | | [phone] | | | | | | | | +--------+ + + + + | 11/26/ | Office | Cardiology | Martin Kelley, | | | 2020 | Visit | | [address] | | | | | | [place], | | | | | | [place] [address] | | | | | | [phone] | | | | | | | | +--------+ + + + + documented as of this encounter Visit Diagnoses Not on filedocumented in this encounter"
--- OUTSIDE RECORDS SUMMARY | ~2020-05-04 | XMS | Encounter Summary ---
Demographics + + + | Address | [address] | | | [place] [address] | + + + | Home Phone [...] + | Gene Gee | ECON | [address] | | | | | [place], | | | | | [place] [address] | | + + + + + Care Team Providers + +------+ + | Care Sales Operations Specialist Name | Role | Phone | + +------+ + | Antony Ribera MD | PCP | | + +------+ + Encounter Details +--------+ + + + + | Date | Type | Department | Care Team | Description | +--------+ + + + + | 05/18/ | Hospital | Radiology/Imaging | | | | 2010 | Encounter | Lab at [facility] [address] | | | | | [address] [facility] | | | | | | [facility] He[facility], | | | | | | [facility] | | | | | | [place], [place] | | | | | | [address] | | | | | | [phone] | | | +--------+ + + + [...] + +--------+ + + + | US SOFT TISSUE HEAD | Routin | 05/18/2011 | Thyroid nodule | Results for this | | & NECK | e | 1:10 PM | | procedure are in the | | | | PDT | | results section. | + +--------+ + + + documented in this encounter Results US SOFT TISSUE HEAD & NECK (05/18/2011 1:10 PM PDT) + + + + + + | Component | Value | Ref Range | Performed | Pathologist | | | | | At | Signature | + + + + + + | US SOFT | THYROID ULTRASOUND WITH | | | | | TISSUE HEAD | DOPPLER COMPARISON: | | | | | & NECK | Outside ultrasound | | | | | | from 01/12/09 HISTORY: | | | | | | Thyroid nodules. | | | | | | FINDINGS: The right | | | | | | thyroid lobe measures | | | | | | 1.2 x 1.4 x 4.7 cm. In | | | | | | theright upper thyroid | | | | | | lobe, there is a 3 x 2 x | | | | | | 2 mm hypoechoic | | | | | | nodule.In the lower pole | | | | | | of the right thyroid | | | | | | lobe, there are two | | | | | | hypoechoicnodules seen, | | | | | | one measuring 3 x 2 x 4 | | | | | | mm and the other | | | | | | measuring 3 x2 x 2 mm. | | | | | | The left thyroid lobe | | | | | | measures 1.1 x 1.3 x 4.4 | | | | | | cm. In the upper | | | | | | leftthyroid lobe, there | | | | | | is a mixed echogenicity | | | | | | nodule measuring 6 x 5 | | | | | | x7 mm with predominantly | | | | | | peripheral vascular | | | | | | flow. In the mid | | | | | | leftthyroid lobe, there | | | | | | is a 4 x 4 x 4 mm | | | | | | partially calcified | | | | | | noduleseen. These do | | | | | | not appear significantly | | | | | | changed compared to | | | | | | theprior study. The | | | | | | isthmus is homogeneous | | | | | | and thin. IMPRESSION: 1. | | | | | | Scattered sub 7 mm | | | | | | bilateral thyroid | | | | | | nodules which do not | | | | | | appearsignificantly | | | | | | changed compared to the | | | | | | prior study. Attending | | | | | | Radiologists: Ava | | | | | | Zaria Beyer M.D.Author: | | | | | | Ava Beyer M.D. | | | | | | [...] | | | | | signed / Ava Enciso | | | | | | Kayleen 05/18/2011 | | | | | | 14:03PM | | | | + + + + + + + + | Specimen | + + | | + + + +---------+ + + | Performing | Address | City/State/Zipcode | Phone Number | | Organization | | | | + +---------+ + + | [facility] | | | | | [facility]IOLOGY | | | | + +---------+ + + documented in this encounter Visit Diagnoses + + | Diagnosis | + + | Thyroid nodule Nontoxic uninodular goiter | + + documented in this encounter"
--- OUTSIDE RECORDS SUMMARY | ~2020-05-04 | XMS | Encounter Summary ---
Demographics + + + | Address | [address] | | | [place] [address] | + + + | Home Phone [...] + | Gene Gee | ECON | [address] | | | | | [place], | | | | | [place] [address] | | + + + + + Care Team Providers + +------+ + | Care Agriculture Intern Name | Role | Phone | + +------+ + | Antony Ribera MD | PCP | | + +------+ + Reason for Visit + +--------+ + | Reason | Onset | Comments | | | Date | | + +--------+ + | Follow-up encounter | | | + +--------+ + | Erroneous Encounter | 08/14/ | | | - Disregard | 2008 | | + +--------+ + Office Visit - E/M Services (Routine) +--------+--------+ + + + + | Status | Reason | Specialty | Diagnoses / | Referred By | Referred To | | | | | Procedures | Contact | Contact | +--------+--------+ + + + + | Closed | | Cardiology | | Bacilio, | Kane, | | | | | | Antony | Monique Quintana NP | | | | | | MD Saman | [address] | | | | | | [place] | Ave | | | | | | INTERNAL | [place], [place] | | | | | | MEDICINE | [address] | | | | | | [address] | | | | | | | [address] | | | | | | | [address] | | | | | | | [place], | | | | | | | [place] [address] | | | | | | | Phone: | | | | | | | [phone] | | | | | | | Fax: | | | | | | | [phone] | | +--------+--------+ + + + + Encounter Details +--------+---------+ + + + | Date | Type | Department | Care Team | Description | +--------+---------+ + + + | 08/13/ | Office | Cardiology | Monique Middleton Lilian, | NO DIAGNOSIS | | 2008 | Visit | Arrhythmia at [facility] | CREATIVE SERVICES COORDINATOR | RECEIVED; Atrial | | | | [address] | | tachycardia 427.89 | | | | [facility] | | | | | | and Healing, | | | | | | Building [address], | | | | | | Floor [place], [place] | | | | | | [address] | | | | | | [phone] | | | +--------+---------+ + + + [...] + + + | Blood Pressure | 126/78 | 08/13/2008 1:56 PM | | | | | PST | | + + + + + | Pulse | 72 | 08/13/2008 1:56 PM | | | | | PST | | + + + + + | Temperature | - | - | | + + + + + | Respiratory Rate | - | - | | + + + + + | Oxygen Saturation | 98% | 08/13/2008 1:56 PM | | | | | PST | | + + + + + | Inhaled Oxygen | - | - | | | Concentration | | | | + + + + + | Weight | 65.2 kg (143 lb 12.8 | 08/13/2008 1:56 PM | | | | oz) | PST | | + + + + + | Height | 166.4 cm (5' 5.5") | 08/13/2008 1:56 PM | | | | | PST | | + + + + + | Body Mass Index | 23.57 | 08/13/2008 1:56 PM | | | | | PST | | + + + + + documented in this encounter Progress Monique Swanson Np - 08/14/2008 8:15 AM PSTThis encounter was opened in error. Please dis regard this note. docu mented in this encounter Plan of Treatment Not on filedocumented as of this encounter Visit Diagnoses + + | Diagnosis | + + | NO DIAGNOSIS RECEIVED | + + | Atrial tachycardia 427.89 Other specified cardiac dysrhythmias | + + documented in this encounter
--- OUTSIDE RECORDS SUMMARY | ~2020-05-04 | XMS | Encounter Summary ---
Demographics + + + | Address | [address] | | | [place] [address] | + + + | Home Phone [...] + | Gene Sahil | ECON | [address] | | | | | [place], | | | | | [place] [address] | | + + + + + Care Team Providers + +------+ + | Care Conductor Road Freight Name | Role | Phone | + +------+ + PCP | Unavailable | + +------+ + Encounter Details +--------+ + + + + | Date | Type | Department | Care Team | Description | +--------+ + + + + | 08/15/ | Office | [facility] | Clinic, Cardiology | Progress Note | | 2006 | Visit-Trans | | | | | [...] as of this encounter Progress Notes Interface, Middle School Science Teacher In - 08/23/2005 2:04 AM PST [id number] [facility] Date: 08/15/2005 Clinic: Cardiology Subjective: Adriana Flynn is a very nice 59-year-old woman who is well known to me. She has a history of an ectopic atrial tachycardia with a previous attempted radiofrequency catheter ablation in December 2004. She states that her rhythms are somewhat better than they were prior to the ablation, but that she still has episodes of palpitations which will last for a few seconds at time which occur on most days. There are some days, however, when she does not have any arrhythmia. She does state that her energy level is much better than it had been prior to the procedure. Review of Systems: Notable for the history of liver cysts which had been stable by the last CT scan. She is scheduled for a repeat esophagoscopy in the near future. Her review of systems is otherwise negative. Medications: Tenormin 25 mg a day and Protonix. Physical Examination: Vital Signs: Her pulse is 78 regular, and blood pressure is 108/78. Neck: There is no neck vein distention. Lungs: Clear. Cardiac: Cardiac apex is nondisplaced. S1 and S2 are normal. I do not hear a murmur or gallop. Abdomen: There is no hepatomegaly. Extremities: No edema. Impression: Mrs. Flynn is a woman with a history of an atrial tachycardia with a previous attempt at ablation. At that time, we did have trouble stirring up her clinical arrhythmia. A repeat procedure would have some yield, but it could be made more difficult if we are unable to reduce her arrhythmia. Since she does have the arrhythmias towards the end of the day, and when she is tired, it might be helpful for her to be somewhat sleep deprived at the time of the study. Plan: We will schedule her for another attempt at electrophysiologic study and radiofrequency catheter ablation. Gary Fuentes M.D. THERON / FRANCA [id number] / [id number] / [id number] / [id number] cc: Antony Ribera M.D. [place], [place] Electronically signed by Gary Fuentes 08-22-2005 12:40:11 PM documented i n this encounter Plan of Treatment Not on filedocumented as of this encounter Visit Diagnoses Not on filedocumented in this encounter"
--- OUTSIDE RECORDS SUMMARY | ~2020-05-04 | XMS | Encounter Summary ---
Demographics + + + | Address | [address] | | | [place] [address] | + + + | Home Phone [...] + | Gene Gee | ECON | [address] | | | | | [place], | | | | | [place] [address] | | + + + + + Care Team Providers + +------+ + | Care Leach Tank Tender Name | Role | Phone | + +------+ + | Antony Ribera MD | PCP | | + +------+ + Reason for Visit +---------+--------+ + | Reason | Onset | Comments | | | Date | | +---------+--------+ + | Post Op | 06/18/ | | | | 2006 | | +---------+--------+ + Encounter Details +--------+ + + + + | Date | Type | Department | Care Team | Description | +--------+ + + + + | 06/18/ | Telephone | Surgical Oncology | Henri Heart, | Post Op | | 2006 | | at [facility] [address] | MD [address] | | | | | Ave [facility] | [place], [place] | | | | | Health and Healing, | [address] | | | | | [facility] | [phone] | | | | | [place], [place] | | | | | | [address] | | | | | | [phone] | | | +--------+ + + + [...] Notes Telephone Encounter - Claribel Garza - 06/18/2007 11:28 AM PSTPatient reported that she bhakta d lifted some boxes and had increased activity level and noted that wound had opened and was dripping fluid. She also notes that the drain has been passing some clots and this has incr eased the leakage around the Tony site also. She is afebrile and her wound is sore, but shows no signs of infection. She is dressing the opened area and placed a few steri strips. She no federica that the drainage is less as long as she keeps the TONY stripped. She will keep her appoin tment with Dr. Heart on , but call us if she develops a fever or notes increased r eddness or purulence from her incision. Time spent 10 minutes. elephone Encounter - Judy Delvalle - 06/18/2007 1 0:16 AM PSTCarol left voice message stating that Dr. Heart did surg to redo the area where the lymph node was removed. She states that the scar was oozing and dripping. She states th at the area has opened up to 3/8 inch. She is wondering what she should do.Electronically si gned by Judy Delvalle at 06/18/2007 10:16 AM PSTdocumented in this encounter Plan of Treatment Not on filedocumented as of this encounter Visit Diagnoses Not on filedocumented in this encounter"
--- OUTSIDE RECORDS SUMMARY | ~2020-05-04 | XMS | Encounter Summary ---
Demographics + + + | Address | [address] | | | [place] [address] | + + + | Home Phone [...] + | Gene Gee | ECON | [address] | | | | | [place], | | | | | [place] [address] | | + + + + + Care Team Providers + +------+ + | Care Lawn Mower Name | Role | Phone | + [...] Closed | | Physical | Diagnoses | Sly | Shiv, | | | | Therapy | Lymphedema | MD Henri | MARYSOL Alaniz | | | | | Procedures | [address] | [address] | | | | | PHYSICAL | Ave | Ave | | | | | THERAPY | [place], [place] | [place], [place] | | | | | REFERRAL | [address] | [address] Phone: | | | | | | Phone: | [phone] | | | | | | [phone] | | | | | | | Fax: | | | | | | | [phone] | | +--------+--------+ + + + + Encounter Details +--------+ + + + + | Date | Type | Department | Care Team | Description | +--------+ + + + + | 10/23/ | Petroleum Products Sales Representative | Surgical Oncology | Henri Heart, | Lymphedema (Primary | | 2007 | | at [facility] [address] | MD [address] | Dx) | | | | Ave Center for | [place], [place] | | | | | Health and Healing, | [address] | | | | | [address] | [phone] | | | | | [facility] [place] | | | | | | [address] | | | | | | [phone] | | | +--------+ + + + [...] Notes Telephone Encounter - Claribel Garza - 10/24/2007 2:59 PM PDTPatient called to report thu t she is having arm swelling s/p physical therapy. She has had numbness and pain down her ar m which resolved. She began PT and thinks that they pushed a little hard and she developed a rm numbness again, this resolved, but now she has swelling. She denies any injury or cuts to the arm. She is currently in [place] working on her father's estate, but is willing to c ome to [place] on her way home to [place] for a consult. Per Dr. Heart- consult to Essie Oliveros for lymphedema consultation. Patient will also use april wrap for mild compression a nd elevation. Time spent 10 minutes. documented in this encounter Plan of Treatment Not on filedocumented as of this encounter Visit Diagnoses + + | Diagnosis | + + | Lymphedema - Primary Other lymphedema | + + documented in this encounter"
--- OUTSIDE RECORDS SUMMARY | ~2020-05-04 | XMS | Encounter Summary ---
Demographics + + + | Address | [address] | | | [place] [address] | + + + | Home Phone [...] + | Gene Gee | ECON | [address] | | | | | [place], | | | | | [place] [address] | | + + + + + Care Team Providers + +------+ + | Care Information Technology Security Analyst Name | Role | Phone | [...] Closed | | Bone | Diagnoses | Belkis Horowitz | | | | Densitometry | Disorder of | MD Tapan | [facility] | | | | | bone and | [address] | [facility] [address] | | | | | cartilage, | Anthony Lipscomb | [address] | | | | | unspecified | Rd | Center for | | | | | Procedures | [place], [place] | Health and | | | | | BONE | [address] | Healing, | | | | | DENSITY | Phone: | Building 1 | | | | | PROCEDURE | [phone] | [facility] [place] | | | | | | Fax: | [address] | | | | | | [phone] | Phone: | | | | | | | [phone] | | | | | | | Fax: | | | | | | | [phone] | +--------+--------+ + + + + Reason [...] | | Services | Diabetes & | Acquired | Stevan Razo, | MD Tapan | | | Required | Metabolism | absence of | [address] | | | | | breast and | [address] | Anthony Lipscomb | | | | | nipple | [place], [place] | Rd [place], | | | | | Procedures | [address] | [place] | | | | | CONSULT TO | Phone: | [phone] | | | | | ENDO | [phone] | Phone: | | | | | [address] | Fax: | [phone] | | | | | [address] | [phone] | Fax: | | | | | | | [phone] | +--------+ + + + + + Encounter Details +--------+---------+ + + + | Date | Type | Department | Care Team | Description | +--------+---------+ + + + | 04/29/ | Office | [facility] | Tapan Horowitz MD | Osteopenia (Primary | | 2011 | Visit | [facility] | [address] | Dx); Thyroid nodule | | | | [facility] | [address] [place], | | | | | [address] | [place] [address] | | | | | [address] | [phone] | | | | | Physician's | | | | | | Pavilion, 1st floor | | | | | | [place], [place] | | | | | | [address] | | | | | | [phone] | | | +--------+---------+ + + + [...] + + + | Blood Pressure | 116/60 | 04/29/2012 11:25 AM | | | | | PDT | | + + + + + | Pulse | 68 | 04/29/2012 11:25 AM | | | | | PDT | | + + + + + | Temperature | - | - | | + + + + + | Respiratory Rate | 12 | 04/29/2012 11:25 AM | | | | | PDT | | + + + + + | Oxygen Saturation | - | - | | + + + + + | Inhaled Oxygen | - | - | | | Concentration | | | | + + + + + | Weight | 65.1 kg (143 lb 8 | 04/29/2012 11:25 AM | | | | oz) | PDT | | + + + + + | Height | 167 cm (5' 5.75") | 04/29/2012 11:25 AM | | | | | PDT | | + + + + + | Body Mass Index | 23.34 | 04/29/2012 11:25 AM | | | | | PDT | | + + + + + documented in this encounter Progress Notes Tapan Horowitz MD - 04/29/2012 11:48 AM PDTFormatting of this note might be different from t brigido original. Chief Complaint: Patient being seen in followup for the following issues: osteopenia ROS Cardiovascular and pulmonary systems have been reviewed and are pt off spiriva. History Smoking status Never Smoker Smokeless tobacco Never Used Comment: nonsmoker/parents smoked History Alcohol Use No S/ Interval History: no falls, fractures, kidney stones since last visit in apr 2011. Is ge tting checked for recurrence of liver cysts but otherwise is feeling very well. Exam: Filed Vitals: 04/29/2012 11:25 AM Height: 1.67 m (5' 5.75") Weight: 65.091 kg (143 lb 8 oz) BP: 116/60 Pulse: 68 Resp: 12 PainSc: 02 - Mild PainLoc: Generalized BMI: 23.34 kg/(m^2) Gen: NAD CV: Regular MS: no kyphosis Lungs: CTA Neuro: Alert and oriented x 3 A/P 1. Osteopenia: Pt has been on Reclast from 8742-2467 with good effect. Will give a drug hol iday right now. Pt is planning to come off her arimidex in the next month which also is good for bone health. Pt on calcium/vit d- recent vit d level was optimal. Check DXA in one year 2. Thyroid: Pt with sub-centimeter thyroid nodules that do not require biopsy. No neck symp toms. TSH normal. Check ultrasound in 2016 for surveillance. documented in this encounter Plan of Treatment Not on filedocumented as of this encounter Visit Diagnoses + + | Diagnosis | + + | Osteopenia - Primary Disorder of bone and cartilage, unspecified | + + | Thyroid nodule Nontoxic uninodular goiter | + + documented in this encounter
--- OUTSIDE RECORDS SUMMARY | ~2020-05-04 | XMS | Encounter Summary ---
Demographics + + + | Address | [address] | | | [place] [address] | + + + | Home Phone [...] + | Gene Gee | ECON | [address] | | | | | [place], | | | | | [place] [address] | | + + + + + Care Team Providers + +------+ + | Care Director Of Nurses Registry Name | Role | Phone | + +------+ + | Antony Ribera MD | PCP | | + +------+ + Reason for Visit + +--------+ + | Reason | Onset | Comments | | | Date | | + +--------+ + | Lab findings, | 02/28/ | | | teaching, guidance, | 2011 | | | and counseling | | | + +--------+ + Encounter Details +--------+ + + + + | Date | Type | Department | Care Team | Description | +--------+ + + + + | 02/28/ | Telephone | Cardiology | Gary Fuentes MD | Lab findings, | | 2011 | | Arrhythmia at [facility] | [address] | teaching, guidance, | | | | [address] | [address] [place], | and counseling | | | | [facility] | [place] [address] | | | | | and [place], | [phone] | | | | | [facility] | | | | | | Floor [place], [place] | | | | | | [address] | | | | | | [phone] | | | +--------+ + + + [...] Telephone Encounter - Monique Fuller RN - 02/29/2012 6:07 PM PDTFinal Impressions: 1. At rest there is normal left ventricular systolic function. 2. Echo negative for ischemia. 3. EKG negative for ischemia. Low risk stress echo in a patient who achieved >85% MAPHR and no inducible ischemia Adriana calls- wanting to know her stress test results- relayed the above. Also- needs refill of her dofetilide-Electronically signed by Monique Fuller RN at 012 6:09 PM PDTdocumented in this encounter Plan of Treatment Not on filedocumented as of this encounter Visit Diagnoses Not on filedocumented in this encounter"
--- OUTSIDE RECORDS SUMMARY | ~2020-05-04 | XMS | Encounter Summary ---
Demographics + + + | Address | [address] | | | [place] [address] | + + + | Home Phone [...] + | Gene Gee | ECON | [address] | | | | | [place], | | | | | [place] [address] | | + + + + + Care Team Providers + +------+ + | Care Domestic Helper Name | Role | Phone | + +------+ + | Antony Ribera MD | PCP | | + +------+ + Encounter Details +--------+ + + + + | Date | Type | Department | Care Team | Description | +--------+ + + + + | 02/13/ | Telephone | Cardiology General | Monique Middleton, | | | 2006 | | at [facility] [address] | MICHAEL | | | | | [place] for | | | | | | Health and Healing, | | | | | | Building | | | | | | Floor [place], [place] | | | | | | [address] | | | | | | [phone] | | | +--------+ + + + [...] Telephone Encounter - Monique Middleton Np - 02/13/2007 10:55 AM [facility] because of samir wel obstruction. called because they were concerned about the moricizine--she is no t able to take because only can use IV meds. They are giving her IV metoprolol. Dr. Alfredo christian with her In [facility]--said OK for the short term. 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
--- OUTSIDE RECORDS SUMMARY | ~2020-05-04 | XMS | Encounter Summary ---
Demographics + + + | Address | [address] | | | [place] [address] | + + + | Home Phone [...] + | Gene Gee | ECON | [address] | | | | | [place], | | | | | [place] [address] | | + + + + + Care Team Providers + +------+ + | Care Tour Bus Driver/Guide Name | Role | Phone | + +------+ + | Alec Hill MD | PCP | | + +------+ + Encounter Details +--------+ + + + + | Date | Type | Department | Care Team | Description | +--------+ + + + + | 02/10/ | Document-Sc | John [facility]olph | Tapan Horowitz MD | | | 2020 | anned | [facility] | [address] | | | | | [facility] | [facility], | | | | | [address] | [place] [address] | | | | | [address] | [phone] | | | | | Physician's Pavilion | | | | | | Physician's | | | | | | [place], | | | | | | [place] [address] | | | | | | [phone] | | | +--------+ + + + [...]
--- OUTSIDE RECORDS SUMMARY | ~2020-05-04 | XMS | Encounter Summary ---
Demographics + + + | Address | [address] | | | [place] [address] | + + + | Home Phone [...] + | Gene Gee | ECON | [address] | | | | | [place], | | | | | [place] [address] | | + + + + + Care Team Providers + +------+ + | Care Telecommunications Engineer Name | Role | Phone | + +------+ + | Antony Ribera MD | PCP | | + +------+ + Reason for Visit + +--------+ + | Reason | Onset | Comments | | | Date | | + +--------+ + | Refill Request | 08/14/ | | | | 2008 | | + +--------+ + Encounter Details +--------+--------+ + + + | Date | Type | Department | Care Team | Description | +--------+--------+ + + + | 08/14/ | Refill | Cardiology General | Monique Middleton, | Refill Request | | 2008 | | at [facility] [address] | DIVER ASSISTANT | | | | | [facility] | | | | | | Health and Healing, | | | | | | [facility] | | | | | | Floor [place], [place] | | | | | | [address] | | | | | | [phone] | | | +--------+--------+ + + + [...]
--- OUTSIDE RECORDS SUMMARY | ~2020-05-04 | XMS | Encounter Summary ---
Demographics + + + | Address | [address] | | | [place] [address] | + + + | Home Phone [...] + | Gene Gee | ECON | [address] | | | | | [place], | | | | | [place] [address] | | + + + + + Care Team Providers + +------+ + | Care Food Service Clerk Name | Role | Phone | + +------+ + | Antony Ribera MD | PCP | | + +------+ + Reason for Visit + +--------+ + | Reason | Onset | Comments | | | Date | | + +--------+ + | Refill Request | 04/09/ | refill request for fluticasone prop 50mcg spray | | | 2012 | | + +--------+ + Encounter Details +--------+--------+ + + + | Date | Type | Department | Care Team | Description | +--------+--------+ + + + | 04/09/ | Refill | Pulmonary & | Charbel Avila, | Refill Request | | 2012 | | Critical Care | [facility] | (refill request for | | | | Medicine at | [facility] | fluticasone prop | | | | [facility] | [address] | 50mcg spray) | | | | [address] | [place], [place] | | | | | [address] [facility] | [address] | | | | | [place], [address] [place] [address] | [phone] | | | | | [place], [place] | | | | | | [address] | | | | | | [phone] | | | +--------+--------+ + + + [...] this encounter Miscellaneous Notes Telephone Encounter - Juan Manuel Mix - 04/09/2013 10:05 AM PDTFormatting of this note migh t be different from the original. Reason for Call: Chief Complaint Patient presents with Refill Request refill request for fluticasone prop 50mcg spray Patient: Adriana Flynn: Home Phone Work Phone Last Telephone in [facility] was on 01/21/13 with Charbel Avila MD. No future appointments scheduled in Pulmonary Disease. Pharmacy Preferences: [facility] [address] [place] [address] [facility] [address] [place] [address] [facility] [place] [address] documented in this encoun ter Plan of Treatment Not on filedocumented as of this encounter Visit Diagnoses Not on filedocumented in this encounter"
--- OUTSIDE RECORDS SUMMARY | ~2020-05-04 | XMS | Encounter Summary ---
Demographics + + + | Address | [address] | | | [place] [address] | + + + | Home Phone [...] + | Gene Gee | ECON | [address] | | | | | [place], | | | | | [place] [address] | | + + + + + Care Team Providers + +------+ + | Care Director Surface Transportation Name | Role | Phone | + +------+ + | Antony Ribera MD | PCP | | + +------+ + Encounter Details +--------+ + + + + | Date | Type | Department | Care Team | Description | +--------+ + + + + | 06/25/ | Hospital | Cardiac | Sjh, Car Ecg Tech | | | 2011 | Encounter | Non-Invasive Testing | [address] | | | | | at [facility] | [facility] | | | | | [address] | [place] [address] | | | | | [address] | | | | | | [place], [facility] floor | | | | | | [place], [place] | | | | | | [address] | | | | | | [phone] | | | +--------+ + + + [...] | 12 LEAD ECG | Routin | 06/25/2012 | Other specified | Results for this | | | e | 12:57 PM | pre-operative | procedure are in the | | | | PST | examination | results section. | + +--------+ + + + documented in this encounter Results 12 LEAD ECG (06/25/2012 12:57 PM PST) + + + + + + | Component | Value | Ref Range | Performed | Pathologist | | | | | At | Signature | + + + + + + | VENTRICULAR | 57 | BPM | [facility] | | | RATE | | | OF | | | | | | CARDIOLOGY | | + + + + + + | ATRIAL RATE | 57 | BPM | [facility] | | | | | | OF | | | | | | CARDIOLOGY | | + + + + + + | P-R | 150 | ms | [facility] | | | INTERVAL | | | OF | | | | | | CARDIOLOGY | | + + + + + + | QRS | 82 | ms | [facility] | | | DURATION | | | OF | | | | | | CARDIOLOGY | | + + + + + + | QT | 484 | ms | [facility] | | | | | | OF | | | | | | CARDIOLOGY | | + + + + + + | QTC | 471 | ms | [facility] | | [...] + + + | T AXIS | 33 | degrees | [facility] | | | | | | OF | | | | | | CARDIOLOGY | | + + + + + + | EKG | Sinus | | [facility] | | | DIAGNOSIS | bradycardiaProlonged | | OF | | | | QTAbnormal ECGConfirmed | | CARDIOLOGY | | | | by BERNARD GONZALEZ ([id number]) | | | | | | on 06/25/2012 10:21:45 | | | | | | PM | | | | + + + + + + + + | Specimen | + + | | + + + + + | Narrative | Performed At | + + + | Please click | [facility] | | on view image for the detailed interpretation from [employer] results. | CARDIOLOGY | + + + + + + + + | Performing | Address | City/State/Zipcode | Phone Number | | Organization | | | | + + + + + | [facility] | [address] | [place], [place] | | | CARDIOLOGY | [address] | [address] | | + + + + + documented in this encounter Visit Diagnoses + + | Diagnosis | + + | Other specified pre-operative examination - Primary | + + documented in this encounter"
--- OUTSIDE RECORDS SUMMARY | ~2020-05-04 | XMS | Encounter Summary ---
Demographics + + + | Address | [address] | | | [place] [address] | + + + | Home Phone [...] + | Gene Sahil | ECON | [address] | | | | | [place], | | | | | [place] [address] | | + + + + + Care Team Providers + +------+ + | Care Feather Drying Machine Operator Name | Role | Phone [...] as of this encounter Progress Notes Interface, Media Monitor In - 01/11/2006 2:03 AM PDT [id number] SAHIL Holman [id number] Clinic Date: 12/01/2005 Clinic: [facility] Please refer to the detailed note dictated by Dr. Deborah Goode. The patient was seen and examined with Dr. Goode, and I concur with all the details outlined in her note. Briefly, the patient is a 59-year-old woman who has had multiple large symptomatic liver cysts and underwent exploratory laparotomy with excision and resection of multiple cysts, alcohol ablation, and marsupialization on June 29, 2004. Final pathology of all 10 cysts were consistent with peribiliary benign cyst. The patient has had a history of rupture and bleeding in the largest cyst which was 9 x 12 cm in size and this had been rapidly growing. Therefore, the operation was performed for symptomatic ruptured cyst. The patient did well postoperatively and her pain resolved. However, the patient has had complications post surgery of recurrent partial small-bowel obstruction. The patient had an episode of small-bowel obstruction beginning late June 2004, and she was admitted to [facility] on July 16, 2004, with partial small-bowel obstruction. This resolved over a period of a week of decompression and with NG suction and medical management. Of note, the patient has had a history of previous lysis of adhesions for small-bowel obstruction in 2002, and she presented in October 2005 just approximately 3 weeks ago with another episode of partial almost complete small-bowel obstruction for which she was hospitalized with NG suction and conservative management, and this resolved over a period of 4 days. However, the patient does not feel that she has ever completely returned to normal health. She has constipation as a baseline and continues to be constipated with the need for taking Metamucil daily in order to have bowel movements. In addition, the patient is having some watery diarrhea occasionally consistent with possibly some obstructive pattern. The patient has another past medical history significant for supraventricular tachycardia. She has had undergone 2 ablations on December 16, 2004, and September 21, 2005; however, the ablations have not been effective and she has been placed on an antiarrhythmic. She was on flecainide for a period of time. However, this caused diarrhea, and therefore, she has been changed to Rythmol, another antiarrhythmic. The patient states that the antiarrhythmics have helped tremendously in terms of her palpitations, tachycardia, and arrhythmias. The patient also has other medical problems including Sjogren's disease; mitral valve prolapse; asthma; gastroesophageal reflux disease; carpal tunnel syndrome; fibromyalgia; fibrocystic breast disease; esophageal dysmotility syndrome; temporomandibular joint disease; status post ectopic that ruptured at age 20; she had an appendectomy at age 25; lysis of adhesions in 2002;bladder suspension at age 51; laparoscopic cholecystectomy in 2002; open hernia repair in 2003 with mesh; and, as mentioned, she has had the resection, marsupialization, and ablation of multiple large cysts. The patient is status post left hemicolectomy for diverticulitis and history of hysterectomy at age 46 for endometriosis. Medications: As per Dr. Goode. Subjective: The patient returns to discuss her small-bowel obstruction recurrences as she most recently had a partial small-bowel obstruction, as mentioned, in October 2005, and she has been feeling ill since that time in terms of her overall clinical status and she has not had the regular bowel function since that time. In addition, she feels bloated and has had to buy pants that are slightly larger. She does have bowel movements and occasionally formed and regular; however, she has intermittent small amounts of diarrhea which is watery, and she does not feel that she is moving things through. We discussed change in diet as well as other medications that she could take. Physical Examination: She looks actually fairly well, in no acute distress. Entire exam is dictated by Dr. Deborah Goode, and I was present for the entire exam. Laboratory Data: As dictated by Dr. Goode. She has all normal labs with normal liver enzymes, bilirubin, albumin is 3.5 and normal, and kidney function is normal as is white count normal, hematocrit 43, and platelet count 225. We reviewed the abdominal CT from November 03, 2005, and this revealed dilated small-bowel with air-fluid levels and transition to the distal jejunum or proximal ileum with changes likely secondary to adhesions. There is collapse distal to the transition point. There is a decompressed colon and no other abnormalities found. Assessment and Plan: This patient has had recurrent partial small-bowel obstruction, likely from adhesions. She has had multiple abdominal incisions and multiple episodes of problems with her gastrointestinal tract. We discussed diet that allows easy digestion of her food, avoiding nuts and seeds, avoiding raw vegetables and salads, and attempting to graze small amounts of meals frequently rather than big meals. In addition, we prescribed her Dulcolax suppository to get things started, in addition Colace 100 mg b.i.d. She is also on Metamucil on a daily basis. If these regimens are not effective, we will plan to discuss another route. Advise for surgery really should be left to if the patient develops significant symptoms and/or near complete bowel obstruction because any operation to relieve the adhesions will likely result in further adhesion formation. Katie Callahan M.D. Teacher Vocal Division of Liver and Pancreas Transplantation [facility] [place] [id number] / [id number] / [id number] / 27740 cc: * Dr. Saman [facility] [address] [place] [address] * Dr. Dilip Frias [facility] [address] [place] [address] [address] [place] [address] Gary Fuentes M.D. Bob Reyna M.D. [id number] Electronically signed by Katie Callahan 01-10-2006 03:38:01 PM documented i n this encounter Plan of Treatment Not on filedocumented as of this encounter Visit Diagnoses Not on filedocumented in this encounter"
--- OUTSIDE RECORDS SUMMARY | ~2020-05-04 | XMS | Encounter Summary ---
Demographics + + + | Address | [address] | | | [place] [address] | + + + | Home Phone [...] + | Gene Gee | ECON | [address] | | | | | [place], | | | | | [place] [address] | | + + + + + Care Team Providers + +------+ + | Care Casualty Insurance Claim Adjuster Name | Role | Phone | + +------+ + | Antony Ribera MD | PCP | | + +------+ + Reason for Visit + + + | Reason | Comments | + + + | Post-discharge | FILL | | follow-up | | + + + Global Period - [...] | | | | | | | [facility] [address] | | | | | [address] | | | | | | | [place] for | | | | | | | Health and | | | | | | | Healing, | | | | | | | [address], | | | | | | | 5th Floor | | | | | | | [place], [place] | | | | | | | [address] | | | | | | | Phone: | | | | | | | [phone] | +--------+--------+ + + + + Encounter Details +--------+---------+ + + + | Date | Type | Department | Care Team | Description | +--------+---------+ + + + | 07/30/ | Office | Plastic and | Santiago Hu, | Breast cancer (HCC) | | 2012 | Visit | Reconstructive | PA-C [address] | (Primary Dx) | | | | Surgery at [facility] [address] [place] [address] [address] | | | [address] | [address] [place], [place] | | | | | for Health and | [id number] | | | | | [place] [address], | | | | | | 5th [facility] | | | | | | [place], [place] | | | | | | [address] | | | | | | [phone] | | | +--------+---------+ + + + [...] documented as of this encounter Progress Notes Santiago Berumen - 07/30/2012 11:38 AM [facility] Plastic and Reconstructive Surgery Post-operative Visit S: HPI: Adriana Flynn is a 66 y.o. female who presents today status-post Placement of right s ubpectoral tissue audio visual coordinator 450 mL Eldridge Siltex Contour Profile audio visual coordinator, reference #[id number], serial #[id number] , filled to 250 mL intraoperatively on 06/26/12. She is experiencing pain in the right axilla with ROM of RUE and feels like TE is pressing against scar tissue. Her pain control is good. She is currently taking narcotics for pain. Here today for TE fill and possible education to continue fills at home. ROS: General: denies constitutional sxs. Denies fever, chills, fatigue. Chest: denies increased surgical site pain, swelling, or progressive redness. Has pain in r ight axilla with ROM. O: Vitals: There were no vitals taken [...] A/P: Status-post Placement of right subpectoral tissue audio visual coordinator 450 mL Eldridge Siltex Contour Profile audio visual coordinator, reference #[id number], serial #[id number] , f illed to 250 mL intraoperatively Doing well. -Continued discomfort right axilla and painful ROM, concerned about scar tissue build up as sociated with her Sjogrens disease. Will provide a referral for PT. -TE fill today, 100 ml right breast. -Discussed continued incision care: gently clean with soap and running water, apply thin fi lm of abx ointment, bandage to keep clean and dry. -Pt was not comfortable to continue TE fills back home and will continue to come to [facility]. -F/U with [facility] for TE fill anticipate 100 ml , sooner prn. The patient indicates understanding of these issues and agrees to the plan. Procedure: Breast Tissue Expansion Note Adriana Flynn returns for tissue expansion of the right breast. Total volume prior to today: 300 cc Volume after today's fill: 400 cc Tissue audio visual coordinator size: 450 cc Goal volume: ~ 450-540 cc Chest: right breast incisions appear to be healing without complication. The overlying ski n is tight, but without signs of erythema, breakdown or blanching. No signs of audio visual coordinator extr usion, infection, or skin breakdown. After explaining the procedure, using sterile technique and a magnetic port finder, the obed l port was accessed using sterile technique and according the the forest law and policy professor's protocol wi th an 21 gauge needle. After confirming return of fluid from the right port 100 cc of normal saline was instilled. The procedure was well tolerated, there was no blanching of the skin, nor undue discomfort. The injection site was cleansed with alcohol and dressed with a Band-aid. Electronically signed on 07/30/2012 at 1:19 PM SANTIAGO HU PA-C. documented in this encounter Plan of Treatment Not on filedocumented as of this encounter Visit Diagnoses + + | Diagnosis | + + | Breast cancer (HCC) - Primary Malignant neoplasm of breast (female), unspecified site | + + documented in this encounter"
--- OUTSIDE RECORDS SUMMARY | ~2020-05-04 | XMS | Encounter Summary ---
Demographics + + + | Address | [address] | | | [place] [address] | + + + | Home Phone [...] + | Gene Gee | ECON | [address] | | | | | [place], | | | | | [place] [address] | | + + + + + Care Team Providers + +------+ + | Care Coroner Name | Role | Phone | + +------+ + | Antony Ribera MD | PCP | | + +------+ + Reason for Visit + +--------+ + | Reason | Onset | Comments | | | Date | | + +--------+ + | Refill Request | 05/01/ | | | | 2015 | | + +--------+ + Encounter Details +--------+--------+ + + + | Date | Type | Department | Care Team | Description | +--------+--------+ + + + | 05/01/ | Refill | Pulmonary & | Dez Hansen, | Refill Request | | 2015 | | Critical Care | ,PhD [address] [facility] | | | | | Medicine at | [facility] | | | | | [address] [facility] | [place], [place] | | | | | [address] | [address] | | | | | [address] | [phone] | | | | | Pavilion, 3rd Floor | | | | | | [place], [place] | | | | | | [address] | | | | | | [phone] | | | +--------+--------+ + + + [...] this encounter Miscellaneous Notes Telephone Encounter - Florencio ElizabethAIDE - 05/01/2016 3:04 PM PDTReceived refill request f rom pharmacy. Rx pended and routed to the provider for approval or denial. Last Appointment in [facility] was on 01/03/16 at 11:30 am with Dez Hansen MD,PhD. Future Appointments on 06/26/2016 11:30 AM Dez Hansen Pulmonary & Critical Care Medicine . documented in this enc ounter Plan of Treatment Not on filedocumented as of this encounter Visit Diagnoses Not on filedocumented in this encounter"
--- OUTSIDE RECORDS SUMMARY | ~2020-05-04 | XMS | Encounter Summary ---
Demographics + + + | Address | [address] | | | [place] [address] | + + + | Home Phone [...] + | Gene Gee | ECON | [address] | | | | | [place], | | | | | [place] [address] | | + + + + + Care Team Providers + +------+ + | Care Rn Dermatology Name | Role | Phone | + +------+ + | Antony Ribera MD | PCP | | + +------+ + Reason for Visit + + + | Reason | Comments | + + + | Postoperative visit | Transfer of care from Dr. Lopez | + + + Global Period - [...] | | | | | | | [place] [facility] for | | | | | | | Health and | | | | | | | Healing, | | | | | | | Building [address], | | | | | | | 5th Floor | | | | | | | [place], [place] | | | | | | | [address] | | | | | | | Phone: | | | | | | | [phone] | +--------+--------+ + + + + Encounter Details +--------+---------+ + + + | Date | Type | Department | Care Team | Description | +--------+---------+ + + + | 09/05/ | Office | Plastic and | Errol Gold | Carcinoma in situ of | | 2012 | Visit | Reconstructive | MD Manda [address] | breast (Primary | | | | Surgery at [facility] [address] | Dx); Acquired | | | | [facility] | [address] [facility] [place] | Absence of Breast | | | | for Health and | [id number] | | | | | Healing, [address], | | | | | | 5th Floor | | | | | | [place], [place] | | | | | | [address] | | | | | | [phone] | | | +--------+---------+ + + + [...] + + + | Blood Pressure | 135/70 | 09/05/2012 11:02 AM | | | | | PST | | + + + + + | Pulse | 74 | 09/05/2012 11:02 AM | | | | | PST | | + + + + + | Temperature | 36.6 C (97.8 F) | 09/05/2012 11:02 AM | | | | | PST | | + + + + + | Respiratory Rate | 16 | 09/05/2012 11:02 AM | | | | | PST | | + + + + + | Oxygen Saturation | 100% | 09/05/2012 11:02 AM | | | | | PST | | + + + + + | Inhaled Oxygen | - | - | | | Concentration | | | | + + + + + | Weight | 64.4 kg (142 lb) | 09/05/2012 11:02 AM | | | | | PST | | + + + + + | Height | 165.1 cm (5' 5") | 09/05/2012 11:02 AM | | | | | PST | | + + + + + | Body Mass Index | 23.63 | 09/05/2012 11:02 AM | | | | | PST | | + + + + + documented in this encounter Progress Notes Alla Buchanan, Errol J - 09/05/2012 11:34 AM PSTPlastic and Reconstructive Surgery Post-operative Visit 3 months postop History of Present Illness: Adriana Flynn is a 66 y.o. female who presents today status-po st R TE placement delayed reconstruction on 06/26/[address] Lopez. She is doing well. Her p ain control is good. She is currently taking nothing for pain. She currently has a 450cc tis candie spot checker in place, filled to 450cc. She is interested in R TE to implant exchange and L mastopexy for symmetry. She wants to be smaller in size (B cup). She has pain on the late ral aspect of her R breast - has an area of tightness/scarring laterally. Has been undergoi ng PT with minimal improvement. History of Sjogren's. Physical Exam: Vitals: BP 135/70 | Pulse 74 | Temp (Src) 36.6 C (97.8 F) (Oral) | RR 16 | Ht 1.651 m ( 5' 5") | Wt 64.411 kg (142 lb) | SpO2 100% | BMI 23.63 kg/(m^2) General Appearance: Well-developed, well-nourished female in no apparent distress. R breast: TE in place , incision well-healed, scar tethering on R lateral chest wall causin g indentation along anterior axillary area L breast: larger compared to R, Grade 2 ptosis Impression: Status-post R TE breast reconstruction Breast asymmetry Doing well Plan: Plan for R TE to implant exchange, capsulotomy, capsulectomy, L mastopexy for symmetry in 6 -8 weeks (sometime in September) Will discuss with our special client bus driver re timing Return to clinic for preop Plastic and Reconstructive Surgery Attending Note I personally interviewed the patient, performed the pertinent parts of the physical examina tion and personally formulated the plan with Dr. Garcia. I agree with the residents documentat ion and have documented any additions or exceptions. Discussed saline and silicone implants, risks and advantages. Patient has decided to proceed with silicone implants Would do reduction on contralateral side for symmery Return to clinic for preop Total time spent in [id number] consultation with patient and her family was 20 minutes, with more than 50% of time spent on counseling of different types of treatment options and t he risks, benefits and alternatives of these options and patient education. 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
--- OUTSIDE RECORDS SUMMARY | ~2020-05-04 | XMS | Encounter Summary ---
Demographics + + + | Address | [address] | | | [place] [address] | + + + | Home Phone [...] + | Gene Gee | ECON | [address] | | | | | [place], | | | | | [place] [address] | | + + + + + Care Team Providers + +------+ + | Care Pugger Helper Name | Role | Phone | [...] | | Bone | Diagnoses | Carlos Manuel, | Ramiro Bne | | | | Densitometry | Disorder of | [facility] [place] [facility] | | | | | bone and | [address] | [facility] [address] | | | | | cartilage, | [address] | [address] | | | | | unspecified | [address] | [facility] | | | | | Procedures | [place], [place] | Health and | | | | | BONE | [address] | Healing, | | | | | DENSITY | Phone: | [address] | | | | | PROCEDURE | [phone] | [place], [place] | | | | | | Fax: | [address] | | | | | | [phone] | Phone: | | | | | | | [phone] | | | | | | | Fax: | | | | | | | [phone] | +--------+--------+ + + + + Encounter Details +--------+---------+ + + + | Date | Type | Department | Care Team | Description | +--------+---------+ + + + | 06/13/ | Office | Bone Density at | | drug clerk current | | 2017 | Visit | [facility] [address] | | use of inhaled | | | | [facility] | | steroid (Primary | | | | and Healing, | | Dx); Disorder of | | | | [address] | | bone and cartilage | | | | [place], [place] | | | | | | [address] | | | | | | [phone] | | | +--------+---------+ + + + [...] of this encounter Progress Yuki Reynolds - 06/13/2017 11:30 AM PSTBone density scans performed. DXA scan Images are located on the Imaging Tab (PACS), and when completed, the final Interp retation report will be scanned into [email or web address] and attached to the Images. Thank you. documented in this encoun ter Plan of Treatment Not on filedocumented as of this encounter Procedures + +--------+ + + + | Procedure Name | Priori | Date/Time | Associated Diagnosis | Comments | | | ty | | | | + +--------+ + + + | BONE DENSITOMETRY | Routin | 06/13/2017 | Disorder of bone | Results for this | | | e | 10:36 AM | and cartilage | procedure are in the | | | | PST | | results section. 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
--- OUTSIDE RECORDS SUMMARY | ~2020-05-04 | XMS | Encounter Summary ---
Demographics + + + | Address | [address] | | | [place] [address] | + + + | Home Phone [...] + | Gene Gee | ECON | [address] | | | | | [place], | | | | | [place] [address] | | + + + + + Care Team Providers + +------+ + | Care Air And Hydronic Balancing Technician Name | Role | Phone | + +------+ + | Antony Ribera MD | PCP | | + +------+ + Encounter Details +--------+ + + + + | Date | Type | Department | Care Team | Description | +--------+ + + + + | 05/13/ | Document-Sc | Health Information | Unknown . | | | 2016 | anned | Services [address] | | | | | [address] | | | | | | Mailcode: [id number] | | | | | | [facility] | | | | | | [place], [place] | | | | | | [address] | | | | | | [phone] | | | +--------+ + + + [...] + + | ORDERS OTHER | | 05/13/2016 | | Results for this | | | | 12:00 AM | | procedure are in the | | | | PDT | | results section. | + +--------+ + + + documented in this encounter Results ORDERS LOREN (05/13/2016 12:00 AM PDT) + + + | Narrative | Performed At | + + + | | | + + + documented in this encounter Visit Diagnoses Not on filedocumented in this encounter"
--- OUTSIDE RECORDS SUMMARY | ~2020-05-04 | XMS | Encounter Summary ---
Demographics + + + | Address | [address] | | | [place] [address] | + + + | Home Phone [...] + | Gene Gee | ECON | [address] | | | | | [place], | | | | | [place] [address] | | + + + + + Care Team Providers + +------+ + | Care Shredding Machine Tender Name | Role | Phone | + +------+ + | Antony Ribera MD | PCP | | + +------+ + Reason for Visit +---------+--------+ + | Reason | Onset | Comments | | | Date | | +---------+--------+ + | Itching | 08/04/ | | | | 2008 | | +---------+--------+ + Encounter Details +--------+ + + + + | Date | Type | Department | Care Team | Description | +--------+ + + + + | 08/04/ | Telephone | Surgical Oncology | SlyHenri, | Itching | | 2008 | | at [facility] [address] | MD [address] | | | | | Ave [facility] | [place], [place] | | | | | Health and Healing, | [address] | | | | | [address] | [phone] | | | | | [place], [place] | | | | | | [address] | | | | | | [phone] | | | +--------+ + + + [...] Telephone Encounter - Claribel Garza RN - 08/04/2008 8:55 AM PSTPatient called to report that she had itching/burning of her nipple (non cancer side) on and Sunday. She de nies any nipple discharge which is how things started when she was diagnosed with breast can cer on the other breast. She notes that she wore a new bra and that the irritation was short ly after that. She has since washed the bra and worn it again and hasn't had the itching. We discussed that her itching may be from the new bra and sizer that may have irritated her sk in. She will contact us if she notes any changes or nipple discharge in the future. Time spe nt 10 minutes. docarola moran in this encounter Plan of Treatment Not on filedocumented as of this encounter Visit Diagnoses Not on filedocumented in this encounter"
--- OUTSIDE RECORDS SUMMARY | ~2020-05-04 | XMS | Encounter Summary ---
Demographics + + + | Address | [address] | | | [place] [address] | + + + | Home Phone [...] + | Gene Gee | ECON | [address] | | | | | [place], | | | | | [place] [address] | | + + + + + Care Team Providers + +------+ + | Care Laborer Syrup Machine Name | Role | Phone | + +------+ + | Alec Hill MD | PCP | | + +------+ + Encounter Details +--------+--------+ + + + | Date | Type | Department | Care Team | Description | +--------+--------+ + + + | 12/16/ | Travel | | | | | [...]
--- OUTSIDE RECORDS SUMMARY | ~2020-05-04 | XMS | Encounter Summary ---
Demographics + + + | Address | [address] | | | [place] [address] | + + + | Home Phone | | + + + | Preferred Language | Unknown | + + + | Marital Status | | + + + | Bahai Affiliation | CHR | + + + [...] + | Gene Gee | ECON | [address] | | | | | [place], | | | | | [place] [address] | | + + + + + Care Team Providers + +------+ + | Care Retail Service Lead Merchandiser Name | Role | Phone | + [...] Description | +--------+---------+ + + + | 09/18/ | Office | Pulmonary & | Beto Desai | Asthma (Primary Dx); | | 2011 | Visit | Critical Care | MD Dianna | Seasonal allergies | | | | Medicine at | | | | | | [facility] | | | | | | [address] | | | | | | [facility] | | | | | | [facility], [address] [place] [address] | | | | | | [place], [place] | | | | | | [address] | | | | | | [phone] | | | +--------+---------+ + + + [...] + + + | Blood Pressure | 110/64 | 09/19/2011 12:51 PM | | | | | PST | | + + + + + | Pulse | 75 | 09/19/2011 12:51 PM | | | | | PST | | + + + + + | Temperature | 37 C (98.6 F) | 09/19/2011 12:51 PM | | | | | PST | | + + + + + | Respiratory Rate | - | - | | + + + + + | Oxygen Saturation | 95% | 09/19/2011 12:51 PM | | | | | PST | | + + + + + | Inhaled Oxygen | - | - | | | Concentration | | | | + + + + + | Weight | 64.2 kg (141 lb 8 | 09/19/2011 12:51 PM | | | | oz) | PST | | + + + + + | Height | 167 cm (5' 5.75") | 09/19/2011 12:51 PM | | | | | PST | | + + + + + | Body Mass Index | 23.01 | 09/19/2011 12:51 PM | | | | | PST | | + + + + + documented in this encounter Patient Instructions Patient Instructions Beto Desai MD - 09/19/2011 1:28 PM PSTDecrease the pulmicor t to one puff twice daily. If your asthma symptoms increase, restart it at two puffs. If you continue to have no asthma symptoms on the one puff twice daily for 2-3 months, send me a MyChart message and we may consider reducing the dose further. documented in this encounter Progress Notes Tr Farr MD - 09/20/2011 4:23 PM PSTI have seen patient with Dr. Desai. I agree with plans. Patient with asthma and no setbacks. She is physically active on a regular progr am three times/week. No albuterol use. She stopped tiotropium as not additive. Exam normal w ith no wheezes. She has bilateral nasal polyps but no erythema nor retained mucus. No oral t hrush. I agree with reduce budesonide to one puff BID to try lowest steroid dosing controls symptoms. She will increase if any breakthrough. I reviewed all issues and answered question s. Beto Torres M D - 09/19/2011 4:26 PM PST Pulmonary Clinic Follow Up Visit Date: 09/19/2011 Primary Care Provider: Latosha Ribera MD [facility] [address] [place] [address], [address] [place] [address] Problem List: 1. Asthma -- on inhaled Pulmicort 2 puffs twice daily -- cannot use long acting beta agonist [...] 7. History of breast cancer (dx 02/19, [id number] s/p mastectomy & chemo, on Arimidex) 8. Mitral valve prolapse 9. Supraventricular tachycardia, on dofetilide Subjective: The patient is a 66 y/o female with a history of seasonal allergies and asthma who presents to the pulmonary clinic for routine follow up evaluation of her asthma. According to the abena leyva she is overall doing well and reports that she feels "really good". She states that h er asthma is completely controlled and that she feels as though she has more "lung capacity" than she has had in a long time. No shortness of breath with exertion or at rest. She is currently exercising three times per week at a local gym, as well [place]. No coughing or wheezing. No sputum produc tion. No nocturnal symptoms. No rescue inhaler use. No chest pain. No fevers or chills. No recent respiratory tract infections. No acute asthma exacerbations. No unscheduled clinic visits or ER visits for respiratory symptoms. No significant seasonal allergy symptoms at the current time. Reports minimal rhinorrhea an d nasal congestion. She is currently using the Pulmicort inhaler twice daily. Reports that she consistently ri nses her mouth out after use. Received the influenza vaccine last April from her PCP. Current Outpatient Prescriptions Medication Sig anastrozole (ARIMIDEX) 1 mg Oral Tablet Take 1 Tab by mouth once daily. atenolol 50 mg Oral Tablet Take 25 mg by mouth two times daily. 1/2 tablet twice daily budesonide (PULMICORT FLEXHALER) 180 mcg/Inhalation Inhalation Aerosol Powdr Breath Act ivated Inhale 2 Puffs two times daily. calcium citrate-vitamin D (CITRACAL + D) 315-200 mg-unit Oral Tablet 2 tabs in evening and liquid calcium citrate in AM CHOLESTYRAMINE, WITH SUGAR, ORAL Take by mouth. DOFETILIDE 500 mcg Oral Capsule Take 1 Cap by mouth two times daily. ezetimibe (ZETIA) 10 mg Oral Tablet Take 10 mg by mouth once daily. Glucosamine 1,000 mg Oral Tablet [...] 20 mg by mouth onc e daily. tramadol (ULTRAM) 50 mg Oral Tablet Take 1 Tab by mouth every six hours as needed for m oderate pain. Vitamin A-Vitamin C-Vit E-Min (ANTIOXIDANT FORMULA) Oral Capsule take 1 capsule by oral route once daily with food VITAMIN D ORAL 2000 IU daily zoledronic acid (RECLAST) 5 mg/100 mL Intravenous Solution Inject into the vein (IV). Yearly Past Social and Family History: No significant changes since last visit. Review of Systems: As above. All other systems negative or unchanged from previous visit. Visit Vitals Item Reading BP 110/64 Pulse 75 Temp (Src) 37 C (98.6 F) (Oral) Ht 167 cm (5' 5.75") Wt 64.184 kg (141 lb 8 oz) SpO2 95% BMI 23.01 kg/(m^2) Physical Exam: General: Pleasant female in [...] No evidence of rash or skin changes. Assessment: The patient is a very pleasant 66 y/o female who [facility] up [facility] of her asthma. At the present time her asthma is classified as mild intermittent disease that is completely controlled. Therefore believe that it is appropria te to step down her current therapy and lower the dose of her inhaled corticosteroid with th e goal of having her use the minimal amount necessary to maintain complete control of her as thma. In addition, congratulated the patient on her outstanding level of physical activity and regular exercise and encouraged her to continue to maintain it. Plan: Reduce pulmicort to 1 puff inhaled twice daily If symptoms increase, patient to go back to two puffs twice daily If asthma remains well controlled, decrease pulmicort to 1 puff once daily in 2-3 months (patient will send [employer] message) Return to clinic in 1 year with repeat spirometry. The patient was evaluated and discussed with attending physician Dr. Farr who agrees with the above assessment and plan. Dr. Farr and I spent a total of 30 minutes with the patie nt, over half of which were devoted to counseling. BETO DESAI MD PULMONARY/CRITICAL CARE FELLOW [address] [facility] Mailcode: [id number] [phone] documented in thi s encounter Plan of Treatment Not on filedocumented as of this encounter Visit Diagnoses + + | Diagnosis | + + | Asthma - Primary Unspecified asthma | + + | Seasonal allergies Allergic rhinitis, cause unspecified | + + documented in this encounter
--- OUTSIDE RECORDS SUMMARY | ~2020-05-04 | XMS | Encounter Summary ---
Demographics + + + | Address | [address] | | | [place] [address] | + + + | Home Phone [...] + | Gene Gee | ECON | [address] | | | | | [place], | | | | | [place] [address] | | + + + + + Care Team Providers + +------+ + | Care Sailing Officer Name | Role | Phone | + +------+ + | Antony Ribera MD | PCP | | + +------+ + Reason for Visit + +--------+ + | Reason | Onset | Comments | | | Date | | + +--------+ + | Treatment Planning | 11/06/ | | | | 2007 | | + +--------+ + Encounter Details +--------+ + + + + | Date | Type | Department | Care Team | Description | +--------+ + + + + | 11/06/ | Telephone | Surgical Oncology | [facility], | Treatment Planning | | 2007 | | at [facility] [address] | MD [address] | | | | | Ave [facility] | [place], [place] | | | | | Health and Healing, | [address] | | | | | Building [address] | [phone] | | | | | [place], [place] | | | | | | [address] | | | | | | [phone] | | | +--------+ + + + [...] Notes Telephone Encounter - Claribel Garza - 11/07/2007 10:20 AM PDTPatient due for left breast mamm/US in November. She would like to have those done here in coordination with her [facility] Dr. Velazquez. Order entered for mamm/US left breast. Time spent 10 minutes. Electronically sig elenita by Claribel Garza at 11/07/2007 10:20 AM PDTdocumented in this encounter Plan of Treatment Not on filedocumented as of this encounter Procedures + +--------+ + + + | Procedure Name | Priori | Date/Time | Associated Diagnosis | Comments | | | ty | | | | + +--------+ + + + | MA DIGITAL MAMMO | Routin | 12/05/2007 | Carcinoma in Situ | Results for this | | DIAG LEFT | e | 10:30 AM | of Breast | procedure are in the | | | | PDT | | results section. | + +--------+ + + + | MA DIAGNOSTIC MAMMO | Routin | 12/05/2007 | | Results for this | | CAD | e | 10:30 AM | | procedure are in the | | | | PDT | | results section. | + +--------+ + + + | US BREAST LEFT | Routin | 12/05/2007 | Carcinoma in Situ | Results for this | | | e | 10:30 AM | of Breast | procedure are in the | | | | PDT | | results section. | + +--------+ + + + documented in this encounter Results MA DIAGNOSTIC MAMMO CAD (12/05/2007 10:30 AM PDT) + + + + + + | Component | Value | Ref Range | Performed | Pathologist | | | | | At | Signature | + + + + + + | MA | Patient History:Patient | | | | | DIAGNOSTIC | is postmenopausal, and | | | | | MAMMO CAD | has history of breast | | | | | | cancer atage | | | | | | 62.Mastectomy of the | | | | | | right breast, March | | | | | | 2006.Last mammogram was | | | | | | performed 1 year | | | | | | ago.Reason for exam: | | | | | | additional evaluation | | | | | | requested from | | | | | | abnormalscreening Reason | | | | | | for Exam/Referral | | | | | | Diagnosis?->fu breast | | | | | | cancer,US if indicated | | | | | | on mammMAM DIG MAMMO | | | | | | DIAG LEFT: December 05, 2007 | | | | | | - Accession #: | | | | | | [id number], MLO, XCCL, CC | | | | | | with magnification, MLO | | | | | | with magnification, | | | | | | andLM view(s) were taken | | | | | | of the left | | | | | | breast.Prior study | | | | | | comparison: November 19, 2006, | | | | | | bilateral | | | | | | mammogram,performed at | | | | | | an outside facility. | | | | | | November 23, 2005, | | | | | | bilateralmammogram, | | | | | | performed at an outside | | | | | | facility.The breast | | | | | | tissue is | | | | | | heterogeneously dense. | | | | | | This may lower | | | | | | thesensitivity of | | | | | | mammography.Finding: | | | | | | LEFT BREAST: There is a | | | | | | focal asymmetry in the | | | | | | upperouter quadrant of | | | | | | the left breast. New | | | | | | finding since November | | | | | | . This density | | | | | | does not completely | | | | | | dissipate with | | | | | | compressionbut is not | | | | | | well visualized on the | | | | | | CC or ML views and | | | | | | mayrepresent overlapping | | | | | | fibroglandular | | | | | | tissue.US BREAST LEFT: | | | | | | December 05, 2007 - Accession | | | | | | #: [id number] breast | | | | | | tissue is | | | | | | heterogeneously dense. | | | | | | This may lower | | | | | | thesensitivity of | | | | | | mammography. There are | | | | | | scattered | | | | | | subcentimetercysts in | | | | | | the upper outer quadrant | | | | | | of the LEFT breast. | | | | | | There is nodefinite | | | | | | sonographic finding to | | | | | | correlate with the | | | | | | mammographicfinding | | | | | | described above.The | | | | | | images were obtained | | | | | | using full field digital | | | | | | mammography onthe | | | | | | dedicated Hologic System | | | | | | with R2 CAD. Performed | | | | | | at [facility] and | | | | | | Science | | | | | | [place].ASSESSMENT: | | | | | | Probably Benign - | | | | | | Category | | | | | | 3RECOMMENDATION:Follow-u | | | | | | p diagnostic mammogram | | | | | | of the left breast in 6 | | | | | | months(finding | | | | | | #1).AddendLblThis report | | | | | | was addended for | | | | | | administrative | | | | | | purposes.I have | | | | | | personally viewed this | | | | | | procedure/exam and | | | | | | reviewed this | | | | | | report.Author: ESTEFANIA | | | | | | Declan CURRYReviewer: ESTEFANIA | | | | | | Levy HOLDER M.D.STATUS FINAL | | | | | | / Dr. ESTEFANIA STERLING | | | | | | FINAL / Dr. ESTEFANIA Lockett | | | | | | [place] RESULT MODIFIED | | | | | | / Dr. ESTEFANIA STERLING | | | | | | FINAL / Dr. ESTEFANIA Lockett | | | | | | [place]STATUS RESULT MODIFIED | | | | | | / Dr. ESTEFANIA STERLING | | | | | | PRELIMINARY - UNSIGNED | | | | | | / Dr. ESTEFANIA STERLING | | | | | | FINAL / Dr. ESTEFANIA HOLDER | | | | + + + + + + + + | Specimen | + + | | + + + +---------+ + + | Performing | Address | City/State/Zipcode | Phone Number | | Organization | | | | + +---------+ + + | [facility] DEPARTMENT OF | | | | | RADIOLOGY | | | | + +---------+ + + US BREAST LEFT (12/05/2007 10:30 AM PDT) + + + + + + | Component | Value | Ref Range | Performed | Pathologist | | | | | At | Signature | + + + + + + | US BREAST | Patient History:Patient | | | | | LEFT | is postmenopausal, and | | | | | | has history of breast | | | | | | cancer atage | | | | | | 62.Mastectomy of the | | | | | | right breast, March | | | | | | 2006.Last mammogram was | | | | | | performed 1 year | | | | | | ago.Reason for exam: | | | | | | additional evaluation | | | | | | requested from | | | | | | abnormalscreening Reason | | | | | | for Exam/Referral | | | | | | Diagnosis?->fu breast | | | | | | cancer,US if indicated | | | | | | on mammMAM DIG MAMMO | | | | | | DIAG LEFT: December 05, 2007 | | | | | | - Accession #: | | | | | | [id number], MLO, XCCL, CC | | | | | | with magnification, MLO | | | | | | with magnification, | | | | | | andLM view(s) were taken | | | | | | of the left | | | | | | breast.Prior study | | | | | | comparison: November 19, 2006, | | | | | | bilateral | | | | | | mammogram,performed at | | | | | | an outside facility. | | | | | | November 23, 2005, | | | | | | bilateralmammogram, | | | | | | performed at an outside | | | | | | facility.The breast | | | | | | tissue is | | | | | | heterogeneously dense. | | | | | | This may lower | | | | | | thesensitivity of | | | | | | mammography.Finding: | | | | | | LEFT BREAST: There is a | | | | | | focal asymmetry in the | | | | | | upperouter quadrant of | | | | | | the left breast. New | | | | | | finding since November | | | | | | . This density | | | | | | does not completely | | | | | | dissipate with | | | | | | compressionbut is not | | | | | | well visualized on the | | | | | | CC or ML views and | | | | | | mayrepresent overlapping | | | | | | fibroglandular | | | | | | tissue.US BREAST LEFT: | | | | | | December 05, 2007 - Accession | | | | | | #: [id number] breast | | | | | | tissue is | | | | | | heterogeneously dense. | | | | | | This may lower | | | | | | thesensitivity of | | | | | | mammography. There are | | | | | | scattered | | | | | | subcentimetercysts in | | | | | | the upper outer quadrant | | | | | | of the LEFT breast. | | | | | | There is nodefinite | | | | | | sonographic finding to | | | | | | correlate with the | | | | | | mammographicfinding | | | | | | described above.The | | | | | | images were obtained | | | | | | using full field digital | | | | | | mammography onthe | | | | | | dedicated Hologic System | | | | | | with R2 CAD. Performed | | | | | | at [facility] and | | | | | | Science | | | | | | [place].ASSESSMENT: | | | | | | Probably Benign - | | | | | | Category | | | | | | 3RECOMMENDATION:Follow-u | | | | | | p diagnostic mammogram | | | | | | of the left breast in 6 | | | | | | months(finding | | | | | | #1).AddendLblThis report | | | | | | was addended for | | | | | | administrative | | | | | | purposes.I have | | | | | | personally viewed this | | | | | | procedure/exam and | | | | | | reviewed this | | | | | | report.Author: ESTEFANIA | | | | | | Declan CURRYReviewer: ESTEFANIA | | | | | | Levy HOLDER M.D.STATUS FINAL | | | | | | / Dr. ESTEFANIA STERLING | | | | | | FINAL / Dr. ESTEFANIA Lockett | | | | | | [place]STATUS RESULT MODIFIED | | | | | | / Dr. ESTEFANIA RIGGSUS | | | | | | FINAL / Dr. ESTEFANIA Lockett | | | | | | [place]STATUS RESULT MODIFIED | | | | | | / Dr. ESTEFANIA RIGGSUS | | | | | | PRELIMINARY - UNSIGNED | | | | | | / Dr. ESTEFANIA HOLDERSTATUS | | | | | | FINAL / Dr. ESTEFANIA HOLDER | | | | + + + + + + + + | Specimen | + + | | + + + +---------+ + + | Performing | Address | City/State/Zipcode | Phone Number | | Organization | | | | + +---------+ + + | [facility] DEPARTMENT OF | | | | | RADIOLOGY | | | | + +---------+ + + AIDE MALLOY (12/05/2007 10:30 AM PDT) + + + + + + | Component | Value | Ref Range | Performed | Pathologist | | | | | At | Signature | + + + + + + | DIG MAMMO | Patient History:Patient | | | | | DIAG LEFT | is postmenopausal, and | | | | | | has history of breast | | | | | | cancer atage | | | | | | 62.Mastectomy of the | | | | | | right breast, March | | | | | | 2006.Last mammogram was | | | | | | performed 1 year | | | | | | ago.Reason for exam: | | | | | | additional evaluation | | | | | | requested from | | | | | | abnormalscreening Reason | | | | | | for Exam/Referral | | | | | | Diagnosis?->fu breast | | | | | | cancer,US if indicated | | | | | | on mammMAM DIG MAMMO | | | | | | DIAG LEFT: December 05, 2007 | | | | | | - Accession #: | | | | | | [id number], MLO, XCCL, CC | | | | | | with magnification, MLO | | | | | | with magnification, | | | | | | andLM view(s) were taken | | | | | | of the left | | | | | | breast.Prior study | | | | | | comparison: November 19, 2006, | | | | | | bilateral | | | | | | mammogram,performed at | | | | | | an outside facility. | | | | | | November 23, 2005, | | | | | | bilateralmammogram, | | | | | | performed at an outside | | | | | | facility.The breast | | | | | | tissue is | | | | | | heterogeneously dense. | | | | | | This may lower | | | | | | thesensitivity of | | | | | | mammography.Finding: | | | | | | LEFT BREAST: There is a | | | | | | focal asymmetry in the | | | | | | upperouter quadrant of | | | | | | the left breast. New | | | | | | finding since May | | | | | | . This density | | | | | | does not completely | | | | | | dissipate with | | | | | | compressionbut is not | | | | | | well visualized on the | | | | | | CC or ML views and | | | | | | mayrepresent overlapping | | | | | | fibroglandular | | | | | | tissue.US BREAST LEFT: | | | | | | December 05, 2007 - Accession | | | | | | #: [id number] breast | | | | | | tissue is | | | | | | heterogeneously dense. | | | | | | This may lower | | | | | | thesensitivity of | | | | | | mammography. There are | | | | | | scattered | | | | | | subcentimetercysts in | | | | | | the upper outer quadrant | | | | | | of the LEFT breast. | | | | | | There is nodefinite | | | | | | sonographic finding to | | | | | | correlate with the | | | | | | mammographicfinding | | | | | | described above.The | | | | | | images were obtained | | | | | | using full field digital | | | | | | mammography onthe | | | | | | dedicated Hologic System | | | | | | with R2 CAD. Performed | | | | | | at [facility] and | | | | | | Science | | | | | | [place].ASSESSMENT: | | | | | | Probably Benign - | | | | | | Category | | | | | | 3RECOMMENDATION:Follow-u | | | | | | p diagnostic mammogram | | | | | | of the left breast in 6 | | | | | | months(finding | | | | | | #1).AddendLblThis report | | | | | | was addended for | | | | | | administrative | | | | | | purposes.I have | | | | | | personally viewed this | | | | | | procedure/exam and | | | | | | reviewed this | | | | | | report.Author: ESTEFANIA | | | | | | Declan CURRYReviewer: ESTEFANIA | | | | | | Levy HOLDER M.D.STATUS FINAL | | | | | | / Dr. ESTEFANIA HOLDERSTAT | | | | | | FINAL / Dr. ESTEFANIA Lockett | | | | | | [place]STATUS RESULT MODIFIED | | | | | | / Dr. ESTEFANIA HOLDERSTAT | | | | | | FINAL / Dr. ESTEFANIA Lockett | | | | | | [place]STATUS RESULT MODIFIED | | | | | | / Dr. ESTEFANIA HOLDERSTAT | | | | | | PRELIMINARY - UNSIGNED | | | | | | / Dr. ESTEFANIA Lockett OHSTATUS | | | | | | FINAL / Dr. ESTEFANIA HOLDER | | | | + + + [...]
--- OUTSIDE RECORDS SUMMARY | ~2020-05-04 | XMS | Encounter Summary ---
Demographics + + + | Address | [address] | | | [place] [address] | + + + | Home Phone [...] + | Gene Gee | ECON | [address] | | | | | [place], | | | | | [place] [address] | | + + + + + Care Team Providers + +------+ + | Care Gallery Intern Name | Role | Phone | + +------+ + | Antony Ribera MD | PCP | | + +------+ + Encounter Details +--------+ + + + + | Date | Type | Department | Care Team | Description | +--------+ + + + + | 09/06/ | Documentati | Hematology/Medical | Stevan Velazquez, | | | 2007 | on | Oncology at [facility] | [address] | | | | | [address] | [place], [place] | | | | | Mailcode: Ale[place] | [address] | | | | | [facility] | [phone] | | | | | and Healing, | | | | | | [facility] | | | | | | Floor [place], [place] | | | | | | [address] | | | | | | [phone] | | | +--------+ + + + [...] Notes Telephone Encounter - Mireya Rene - 09/06/2007 4:11 PM PSTLetter of Medical [facility] [employer] [facility] requested. documented in this encounter Plan of Treatment Not on filedocumented as of this encounter Visit Diagnoses Not on filedocumented in this encounter"
--- OUTSIDE RECORDS SUMMARY | ~2020-05-04 | XMS | Encounter Summary ---
Demographics + + + | Address | [address] | | | [place] [address] | + + + | Home Phone [...] + | Gene Gee | ECON | [address] | | | | | [place], | | | | | [place] [address] | | + + + + + Care Team Providers + +------+ + | Care Ice Guard Inspector Name | Role | Phone | + +------+ + | Alec Hill MD | PCP | | + +------+ + Encounter Details +--------+ + + + + | Date | Type | Department | Care Team | Description | +--------+ + + + + | 04/19/ | Hospital | Registration [address] | [facility], | | | 2006 | Activity | [address] | [address] | | | | | [place] Mailcode: [id number] | [place], [place] | | | | | [place], [place] | [address] | | | | | [address] | [phone] | | | | | [phone] | | | +--------+ + + + [...] + | X-RAY CHEST 1 VIEW | Urgent | 04/19/2007 | | Results for this | | | | 11:27 AM | | procedure are in the | | | | PDT | | results section. | + +--------+ + + + | SURGICAL PATHOLOGY | Routin | 04/19/2007 | | Results for this | | | e | | | procedure are in the | | | | | | results section. | + +--------+ + + + documented in this encounter Results CHEST 1 VIEW (04/19/2007 11:27 AM PDT) + + + + + + | Component | Value | Ref Range | Performed | Pathologist | | | | | At | Signature | + + + + + + | CHEST, 1 | Radiologist 1: CLAUDIA, | | | | | VIEW | COLLETTE LUCASortalvin chest. | | | | | | Comparison 06/28/2004 | | | | | | Left Port-A-Cath tip | | | | | | placed in mid to distal | | | | | | SVC. Lungs areclear. | | | | | | Surgical drains and | | | | | | clips are present in the | | | | | | right axilla.Lungs are | | | | | | clear. No pneumothorax | | | | | | is present.Impression: | | | | | | 1. No pneumothorax | | | | | | with left Port-A-Cath | | | | | | tip in mid to distalSVC. | | | | | | Clear lungs. | | | | + + + + + + + + | Specimen | + + | | + + + +---------+ + + | Performing | Address | City/State/Zipcode | Phone Number | | Organization | | | | + +---------+ + + | [facility] DEPARTMENT OF | | | | | RADIOLOGY | | | | + +---------+ + + SURGICAL PATHOLOGY (04/19/2007) + + + + + + | Component | Value | Ref Range | Performed | Pathologist | | | | | At | Signature | + + + + + + | SURGICAL | SOURCE OF SPECIMEN:A | | [facility] | | | PATHOLOGY | Right Axillary contents | | DEPARTMENT | | | | Final Pathologic | | OF | | | | Diagnosis:Lymph nodes, | | PATHOLOGY | | | | right axillary, | | | | | | dissection: - | | | | | | Sixteen lymph nodes, | | | | | | negative for malignancy | | | | | | (0/16) - Fibrosis | | | | | | and granulation tissue | | | | | | consistent with biopsy | | | | | | site changes Case | | | | | | reviewed by:Eleonora | | | | | | Carlos/Student | | | | | | FellowMelora Albright, | | | | | | Ph.D., | | | | | | M.D./PathologistT: | | | | | | 7:zandra I have reviewed | | | | [...] cancer. | | | | | | Gross Description:One | | | | | | specimen is received | | | | | | fresh in a container | | | | | | labeled with the patient | | | | | | name(initials CB) and | | | | | | "right axillary | | | | | | contents." Received is | | | | | | one unoriented,yellow, | | | | | | lobular, hemorrhagic | | | | | | fragment that measures | | | | | | 8.5 x 8.0 x 2.0 cm | | | | | | andweighs 62 grams. | | | | | | There is a smooth | | | | | | surface that measures | | | | | | 3.3 x 3.0 cm(possible | | | | | | biopsy cavity surface). | | | | | | On dissection of the | | | | | | specimen, there isan | | | | | | area of matted tissue | | | | | | with involved suture. | | | | | | Twenty-one possible | | | | | | lymphnodes are dissected | | | | | | and range in size from | | | | | | 0.5 x 0.5 x 0.5 cm to | | | | | | 3.0 x 1.8x 1.5 cm. All | | | | | | lymph nodes are | | | | | | submitted. Cassette | | | | | | Index:A1, section of | | | | | | mucosal areaA2, section | | | | | | of matted suture | | | | | | materialA3, five | | | | | | possible lymph nodesA4, | | | | | | two possible lymph | | | | | | nodesA5, one possible | | | | | | lymph node, bisectedA6, | | | | | | two possible lymph | | | | | | nodes, one inked black | | | | | | the other bisectedA7, | | | | | | two possible lymph | | | | | | nodesA8, one possible | | | | | | lymph nodeA9, one | | | | | | possible lymph node, | | | | | | osyfuvkwB36, one | | | | | | possible lymph node, | | | | | | qpndulvfX10, one | | | | | | possible lymph nodeA12, | | | | | | one possible lymph | | | | | | nodeA13, one possible | | | | | | lymph nodeA14, one | | | | | | possible lymph nodeA15, | | | | | | one possible lymph node, | | | | | | bisectedNG:labRendering | | | | | | Diagnostician: Julia | | | | | | Keren Albright Ph.D., | | | | | | Ankita | | | | | | will Signed 04/23/2007 | | | | + + + + + + + + | Specimen | + + | | + + + + + + + | Performing | Address | City/State/Zipcode | Phone Number | | Organization | | | | + + + + + | [facility] DEPARTMENT OF | [address] | [place] [address] | | | PATHOLOGY | [address] | | | + + + + + | [facility] DEPARTMENT OF | [address] | [place] [address] | | | PATHOLOGY | [address] | | | + + + + + documented in this encounter Visit Diagnoses Not on filedocumented in this encounter
--- OUTSIDE RECORDS SUMMARY | ~2020-05-04 | XMS | Encounter Summary ---
Demographics + + + | Address | [address] | | | [place] [address] | + + + | Home Phone [...] + | Gene Gee | ECON | [address] | | | | | [place], | | | | | [place] [address] | | + + + + + Care Team Providers + +------+ + | Care Turn Laster Name | Role | Phone | + +------+ + | Antony Ribera MD | PCP | | + +------+ + Encounter Details +--------+ + + + + | Date | Type | Department | Care Team | Description | +--------+ + + + + | 08/06/ | Abstract | Hematology/Medical | Stevan Velazquez, | | | 2007 | | Oncology at [facility] | [address] | | | | | [address] | [place], [place] | | | | | Mailcode: [place] | [phone] | | | | | [facility] | [phone] | | | | | and Healing, | | | | | | Building | | | | | | Floor [place], [place] | | | | | | [address] | | | | | | [phone] | | | +--------+ + + + [...] encounter Progress Notes Rosalinda Palacios RN - 08/06/2007 4:20 PM PSTEntered results of external CBC with diffElect ronically signed by Rosalinda Palacios RN at 08/06/2007 4:20 PM PSTdocumented in this encounte r Plan of Treatment Not on filedocumented as of this encounter Procedures + +--------+ + + + | Procedure Name | Priori | Date/Time | Associated Diagnosis | Comments | | | ty | | | | + +--------+ + + + | CBC, WITH | Routin | 08/01/2007 | | Results for this | | DIFFERENTIAL | e | | | procedure are in the | | | | | | results section. | + +--------+ + + + | CBC, WITH | Routin | 08/01/2007 | | Results for this | | DIFFERENTIAL | e | | | procedure are in the | | | | | | results section. | + +--------+ + + + documented in this encounter Results CBC, WITH DIFFERENTIAL (08/01/2007) + + + + + + | Component | Value | Ref Range | Performed | Pathologist | | | | | At | Signature | + + + + + + | WHITE CELL | 4.1 (A) | 4.5 - 11 K/cu | [facility] | | | COUNT | | mm | LAB | | + + + + + + | RED CELL | 4.47 | 4.2 - 5.4 M/cu | [facility] | | | COUNT | | mm | LAB | | + + + + + + | HEMOGLOBIN | 12.6 | 12 - 16 g/dL | [facility] | | | | | | LAB | | + + + + + + | HEMATOCRIT | 37.7 (A) | 38 - 47 % | [facility] | | | | | | LAB | | + + + + + + | MCV | 84.5 | 81 - 99 fL | [facility] | | | | | | LAB | | + + + + + + | MCH | 28 | 27 - 33 pg | [facility] | | | | | | LAB | | + + + + + + | MCHC | 33 | 30 - 36 g/dL | [facility] | | | | | | LAB | | + + + + + + | PLATELET | 193 | 140 - 440 K/cu | [facility] | | | COUNT | | mm | LAB | | + + + + + + | NEUTROPHIL | 50.4 | 37 - 67 % | [facility] | | | % | | | LAB | | + + + + + + | LYMPHOCYTE | 36.8 | 24 - 44 % | [facility] | | | % | | | LAB | | + + + + + + | MONOCYTE % | 9.2 | 0 - 12 % | [facility] | | | | | | LAB | | + + + + + + | EOS % | 1.7 | 0 - 6 % | [facility] | | | | | | LAB | | + + + + + + | BASO % | 2.0 | 0 - 2 % | [facility] | | | | | | LAB | | + + + + + + | RDW | 16.6 | % | [facility] | | | | | | LAB | | + + + + + + | MPV | | fL | [facility] | | | | | | LAB | | + + + + + + | NEUTROPHIL | | K/cu mm | [facility] | | | # | | | LAB | | + + + + + + | LYMPHOCYTE | | K/cu mm | [facility] | | | # | | | LAB | | + + + + + + | MONOCYTE # | | K/cu mm | [facility] | | | | | | LAB | | + + + + + + | EOS # | | K/cu mm | [facility] | | | | | | LAB | | + + + + + + | BASO # | | | [facility] | | | | | | LAB | | + + + + + + + +---------+ + + | Performing | Address | City/State/Zipcode | Phone Number | | Organization | | | | + +---------+ + + | [facility] | | | | + +---------+ + + CBC, WITH DIFFERENTIAL (08/01/2007) + +-------+ + + + | Component | Value | Ref Range | Performed | Pathologist | | | | | At | Signature | + +-------+ + + + | WHITE CELL | 4.1 | K/cu mm | [facility] | | | COUNT | | | LAB | | + +-------+ + + + | RED CELL | | M/cu mm | [facility] | | | COUNT | | | LAB | | + +-------+ + + + | HEMOGLOBIN | | 12.1999 - 15 | [facility] | | | | | g/dL | LAB | | + +-------+ + + + | HEMATOCRIT | | % | [facility] | | | | | | LAB | | + +-------+ + + + | MCV | | fL | [facility] | | | | | | LAB | | + +-------+ + + + | MCH | | pg | [facility] | | | | | | LAB | | + +-------+ + + + | MCHC | | g/dL | [facility] | | | | | | LAB | | + +-------+ + + + | PLATELET | | K/cu mm | [facility] | | | COUNT | | | LAB | | + +-------+ + + + | NEUTROPHIL | | % | [facility] | | | % | | | LAB | | + +-------+ + + + | LYMPHOCYTE | | % | [facility] | | | % | | | LAB | | + +-------+ + + + | MONOCYTE % | | % | [facility] | | | | | | LAB | | + +-------+ + + + | EOS % | | % | [facility] | | | | | | LAB | | + +-------+ + + + | BASO % | | % | [facility] | | | | | | LAB | | + +-------+ + + + | RDW | | % | [facility] | | | | | | LAB | | + +-------+ + + + | MPV | | fL | [facility] | | | | | | LAB | | + +-------+ + + + | NEUTROPHIL | | K/cu mm | [facility] | | | # | | | LAB | | + +-------+ + + + | LYMPHOCYTE | | K/cu mm | [facility] | | | # | | | LAB | | + +-------+ + + + | MONOCYTE # | | K/cu mm | [facility] | | | | | | LAB | | + +-------+ + + + | EOS # | | K/cu mm | [facility] | | | | | | LAB | | + +-------+ + + + | BASO # | | | [facility] | | | | | | LAB | | + +-------+ + + + + +---------+ + + | Performing | Address | City/State/Zipcode | Phone Number | | Organization | | | | + +---------+ + + | [place] [facility] | | | | + +---------+ + + documented in this encounter Visit Diagnoses Not on filedocumented in this encounter"
--- OUTSIDE RECORDS SUMMARY | ~2020-05-04 | XMS | Encounter Summary ---
Demographics + + + | Address | [address] | | | [place] [address] | + + + | Home Phone [...] + | Gene Sahil | ECON | [address] | | | | | [place], | | | | | [place] [address] | | + + + + + Care Team Providers + +------+ + | Care Fundraising Director Name | Role | Phone | + +------+ + PCP | Unavailable | + +------+ + Encounter Details +--------+ + + + + | Date | Type | Department | Care Team | Description | +--------+ + + + + | 06/25/ | [facility] | | Letter, Clinic | [...] as of this encounter Progress Notes Interface, Acute Care Nurse Practitioner In - 02/12/2005 8:50 AM PDT [id number] 06/24/2004 [id number] SAHIL Holman [facility] Liver Transplant Program [address] [place] [id number] June 24, 2004 Bob Reyna M.D. [facility] Hepatology [id number] RE: ADRIANA BAXTER MR #: [id number] This is an addendum to the dictation by Dr. Renu Cosby, #[id number]. Dear Bob: I had the pleasure of seeing your patient, Adriana Baxter, in consideration for further therapy of her large symptomatic liver cyst. The patient was seen and examined with our resident, Dr. Renu Cosby, and I concur with all the details outlined in her detailed note. Briefly, she is a 58-year-old woman who was diagnosed with a liver cyst in 1998 which was incidentally noted on right upper quadrant ultrasound prior to the cholecystectomy, and the patient had been asymptomatic and has had serial scans for one reason or another of the abdomen which showed no significant growth of the cyst in her liver; however, in late March 2004, the patient noted acute onset of right upper quadrant pain radiating to her right shoulder while driving from [facility] to [place]. The pain was 10/10, and she was evaluated in the Emergency Room near her home. A CT scan of the abdomen at that point on April 11, 2004, showed her to have numerous large hepatic cysts, the largest was in the right hepatic lobe measuring 9.3 x 12.2 cm in size, and it was previously 9.5 x 7.0 cm in size 1 year earlier. Of note, the patient got better until April 30, 2004, at which time she again had an acute episode of right upper quadrant pain which led to an evaluation and eventual admission to the hospital for the pain. A CT scan repeated again showed no change in size from the previous imaging on April 11, 2004, but there was a question of a hemorrhage in the portion of the large cyst in the right lobe of the liver, and this could be responsible for her pain. She had a slightly elevated bilirubin of 1.3 and normal transaminases the first day. However, on day #2 of the hospitalization, her bilirubin normalized. However, AST and ALT tariq to 66 and 67 respectively. The patient was discharged on post hospital day #3 when all her numbers were normalized, and since that time, she had a repeat CT scan on May 11, 2004, which again showed a very large 9.7 x 12.0-cm dominant cyst in the dome of the right lobe of liver and two other large cysts in the right anterior lobe as well as the medial segment of left lobe. No change in size of the cyst since the April 30, 2004, scan. However, there was what appeared to be a hematoma in the right lobe cyst. The patient has had no history of renal cysts and has no other significant risk factors for any liver disease. The patient has no family history of liver disease. No toxic exposure. No history of hepatitis A, B, or C. No history of blood transfusion that she is aware of. No history of tattoos, IV drug use, or significant alcohol. The patient presents for further therapy, and she is unable to walk because of the pain, and this has been quite debilitating since it began in late March 2004, and she would like more aggressive intervention. Her past medical history has numerous other problems including ectopic at age 20, status post appendectomy 25, status post adhesiolysis, endometriosis, status post hysterectomy at age 46, bladder suspension age 51, diverticulitis, status post left sigmoid colectomy in 2002, status post cholecystectomy laparoscopically in 2002, status post surgical incisional hernia repair with mesh in 2003 of the midline incision, history of carpal tunnel syndrome status post release on the left side, status post sinus surgery approximately 12 years ago, status post hemorrhoid surgery 12 to 15 years ago, history of fibroid cysts in the breast at age 33, with Sjogren's syndrome diagnosed in 1995, with GERD and asthma and fibrocystic breast changes. The patient has fibromyalgia diagnosed in 1995, mitral valve prolapse, gastroesophageal reflux disease, asthma, TMJ disease, fibrocystic breast disease as mentioned, diverticulitis, skin cancers on her back, and esophageal dysmotility. Of note, the patient had resection she thinks of one of her liver cysts or at least drainage when she had her left hemicolectomy. THE PATIENT HAS NUMEROUS ALLERGIES. CIPROFLOXACIN CAUSES A RASH, SULFA DRUGS CAUSE SWELLING, AND THIAZIDE DIURETICS CAUSE BREAST LUMPS. Her medications and rest of her history, as dictated by Dr. Cosby. On physical exam, she is a very healthy-appearing 58-year-old in no acute distress. Her vitals reveal a blood pressure 118/80, temperature 36.5, pulse 64 and regular, respirations 14, weight is 138 pounds, and height is 5 feet 6.5 inches. I concur with the details outlined by Dr. Cosby's physical exam. The patient does have a palpable liver 3 cm below the right costal margin. Spleen tip is not appreciated. She has no obvious ascites. No rebound, but she does have some tenderness in the right costal margin. She also has multiple well-healed surgical scars. No evidence of recurrent hernias. Her laboratory data is as dictated by Dr. Cosby and is entirely normal with normal liver enzymes and CBC and INR. This was done day before yesterday. Assessment: This is a 58-year-old pleasant woman with multiple large liver cysts with recent acute exacerbation of abdominal pain to the point of 10/10 pain, likely secondary to hemorrhage into the cyst and stretching of the capsule of the liver. I discussed with the patient that we would likely not completely remove the cysts but would unroof them, cut off the majority portion of the cysts, and then marsupialize them to prevent further growth. We might also sclerose them with a hypertonic saline or 70% alcohol. I discussed the risk of the operation including infection, bleeding, and . I discussed that the cyst may recur, and in addition, I discussed that she still may have some pain after the surgery related to the cyst that her postoperative course would be 5 to 7 days in the hospital and a 6-week recuperation. She and her understand all the issues and would like to proceed. The plan will be to have her undergo preadmission testing with anesthesia, chest x-ray, EKG, type and cross for 2 units of blood, and schedule for surgery on June 29, 2004, for unroofing of the cysts, drainage, marsupialization, and possible resection. Thank you very much for the opportunity to participate in the care of this patient. If you have any questions or suggestions, please feel free to page me or contact me. Sincerely, Katie Callahan M.D. [employer] Division of Liver and Pancreas Transplantation [facility] / [id number] / [id number] / [id number] / cc: Dilip Frias M.D. [address] [place] [address] Antony Ribera M.D. [address] [place] [address] documented i n this encounter Plan of Treatment Not on filedocumented as of this encounter Visit Diagnoses Not on filedocumented in this encounter"
--- OUTSIDE RECORDS SUMMARY | ~2020-05-04 | XMS | Encounter Summary ---
Demographics + + + | Address | [address] | | | [place] [address] | + + + | Home Phone [...] + | Gene Gee | ECON | [address] | | | | | [place], | | | | | [place] [address] | | + + + + + Care Team Providers + +------+ + | Care Restaurant Line Server Name | Role | Phone | + +------+ + | Antony Ribera MD | PCP | | + +------+ + Reason for Visit + +--------+ + | Reason | Onset | Comments | | | Date | | + +--------+ + | Refill Request | 06/01/ | | | | 2009 | | + +--------+ + Encounter Details +--------+--------+ + + + | Date | Type | Department | Care Team | Description | +--------+--------+ + + + | 06/01/ | Refill | Cardiology General | Monique Middleton, | Refill Request | | 2009 | | at [facility] [address] | [employer]AL [employer]ICIAL LAW CLERK | | | | | [facility] | | | | | | Health and Healing, | | | | | | [facility] | | | | | | Floor [place], [place] | | | | | | [address] | | | | | | [phone] | | | +--------+--------+ + + + [...]
--- OUTSIDE RECORDS SUMMARY | ~2020-05-04 | XMS | Encounter Summary ---
Demographics + + + | Address | [address] | | | [place] [address] | + + + | Home Phone [...] + | Gene Gee | ECON | [address] | | | | | [place], | | | | | [place] [address] | | + + + + + Care Team Providers + +------+ + | Care Pipe Coremaker Name | Role | Phone | + +------+ + | Antony Ribera MD | PCP | | + +------+ + Encounter Details +--------+ + + + + | Date | Type | Department | Care Team | Description | +--------+ + + + + | 06/13/ | Orders Only | Digestive Health | Bob Reyna MD | IBS (Irritable Bowel | | 2005 | | Center at [facility] [address] | [address] | Syndrome) (Primary | | | | [address] | [place], [place] | Dx) | | | | for Health and | [address] | | | | | Healing, Building [address] | [phone] | | | | | [place], [place] | | | | | | [address] | | | | | | [phone] | | | +--------+ + + + [...] of this encounter Plan of Treatment + +------+--------+ + + | Name | Type | Priori | Associated Diagnoses | Order Schedule | | | | ty | | | + +------+--------+ + + | [facility] - SPECIMEN | Lab | Routin | IBS (Irritable | Ordered: 06/13/2006 | | COLLECT, | | e | Bowel Syndrome) | | | VENIPUNCTURE | | | | | + +------+--------+ + + documented as of this encounter Procedures + +--------+ + + + | Procedure Name | Priori | Date/Time | Associated Diagnosis | Comments | | | ty | | | | + +--------+ + + + | DIFFERENTIAL | Routin | 06/13/2006 | | Results for this | | | e | 9:51 AM | | procedure are in the | | | | PST | | results section. | + +--------+ + + + | INR | Routin | 06/13/2006 | IBS (Irritable | Results for this | | | e | 9:51 AM | Bowel Syndrome) | procedure are in the | | | | PST | | results section. | + +--------+ + + + | CBC, WITH | Routin | 06/13/2006 | IBS (Irritable | Results for this | | DIFFERENTIAL | e | 9:51 AM | Bowel Syndrome) | procedure are in the | | | | PST | | results section. | + +--------+ + + + | COMPLETE METABOLIC | Routin | 06/13/2006 | IBS (Irritable | Results for this | | SET | e | 9:51 AM | Bowel Syndrome) | procedure are in the | | (NA,K,CL,CO2,BUN,CRE | | PST | | results section. | | AT,GLUC,CA,AST,ALT,B | | | | | | DANICA TOTAL,ALK | | | | | | PHOS,ALB,PROT TOTAL) | | | | | + +--------+ + + + documented in this encounter Results DIFFERENTIAL (06/13/2006 9:51 AM PST) + +-------+ + + + | Component | Value | Ref Range | Performed | Pathologist | | | | | At | Signature | + +-------+ + + + | NEUTROPHIL | 67 | 50 - 70 % | [facility] | | | % | | | DEPARTMENT | | | | | | OF | | | | | | PATHOLOGY | | + +-------+ + + + | LYMPHOCYTE | 24 | 18 - 42 % | [facility] [...] + + + | BASO % | 1 | <3 % | [facility] | | | | | | DEPARTMENT | | | | | | OF | | | | | | PATHOLOGY | | + +-------+ + + + | NEUTROPHIL | 4.4 | 1.8 - 7.7 K/cu | [facility] | | | # | | mm | DEPARTMENT | | | | | | OF | | | | | | PATHOLOGY | | + +-------+ + + + | LYMPHOCYTE | 1.6 | 1.0 - 4.8 K/cu | [facility] | | | # | | mm | DEPARTMENT | | | | | | OF | | | | | | PATHOLOGY | | + +-------+ + + + | MONOCYTE # | 0.5 | 0.1 - 0.6 K/cu | [facility] [...] + + + | BASO # | 0.1 | <0.3 | [facility] | | | [...] | + + + + + | [facility] | [address] [facility] | [place] [address] | | | PATHOLOGY | [address] | | | + + + + + | [facility] | [address] [facility] | [place] [address] | | | PATHOLOGY | [address] | | | + + + + + PROTHROMBIN TIME (06/13/2006 9:51 AM PST) + + + + + + | Component | Value | Ref Range | Performed | Pathologist | | | | | At | Signature | + + + + + + | INR | 1.07Comment: | 0.90 - 1.20 INR | [facility] [...] + + + + + | [facility]MENT [facility] | [address] | [place] [address] | | | PATHOLOGY | [address] | | | + + + + + | [facility] DEPARTMENT OF | [address] | [place] [address] | | | PATHOLOGY | [address] | | | + + + + + CBC, WITH DIFFERENTIAL (06/13/2006 9:51 AM PST) + +-------+ + + + | Component | Value | Ref Range | Performed | Pathologist | | | | | At | Signature | + +-------+ + + + | WHITE CELL | 6.6 | 4.4 - 11.0 K/cu | [facility] | | | COUNT | | mm | DEPARTMENT | | | | | | OF | | | | | | PATHOLOGY | | + +-------+ + + + | RED CELL | 4.82 | 4.00 - 5.20 | [facility] | | | COUNT | | M/cu mm | DEPARTMENT | | | | | | OF | | | | | | PATHOLOGY | | + +-------+ + + + | HEMOGLOBIN | 14.8 | 12.0 - 16.0 | [facility] | | | | | g/dL | DEPARTMENT | | | | | | OF | | | | | | PATHOLOGY | | + +-------+ + + + | HEMATOCRIT | 43.1 | 36.0 - 46.0 % | [facility] | | | | | | DEPARTMENT | | | | | | OF | | | | | | PATHOLOGY | | + +-------+ + + + | MCV | 89.3 | 80.0 - 96.0 fL | [facility] | | | | | | DEPARTMENT | | | | | | OF | | | | | | PATHOLOGY | | + +-------+ + + + | MCHC | 34.4 | 33.4 - 35.5 | [facility] | | | | | g/dL | DEPARTMENT | | | | | | OF | | | | | | PATHOLOGY | | + +-------+ + + + | RDW | 13.1 | 11.5 - 15.0 % | [facility] | | | | | | DEPARTMENT | | | | | | OF | | | | | | PATHOLOGY | | + +-------+ + + + | PLATELET | 203 | 150 - 400 K/cu | [facility] [...] + + + + + | [facility] | [address] [facility] | [place] [address] | | | PATHOLOGY | [address] | | | + + + + + | [facility] | [address] [facility] | [place] [address] | | | PATHOLOGY | [address] | | | + + + + + COMP METABOLIC SET (06/13/2006 9:51 AM PST) + +--------+ + + + | Component | Value | Ref Range | Performed | Pathologist | | | | | At | Signature | + +--------+ + + + | GLUCOSE, | 98 | 65 - 110 mg/dL | [facility] | | | PLASMA | | | DEPARTMENT | | | (LAB) | | | OF | | | | | | PATHOLOGY | | + +--------+ + + + | BUN, PLASMA | 8 | 6 - 20 mg/dL | [facility] | | | (LAB) | | | DEPARTMENT | | | | | | OF | | | | | | PATHOLOGY | | + +--------+ + + + | CREATININE | 0.9 | 0.6 - 1.1 mg/dL | [facility] | | | PLASMA | | | DEPARTMENT | | | (LAB) | | | OF | | | | | | PATHOLOGY | | + +--------+ + + + | TOTAL | 6.6 | 6.1 - 7.9 g/dL | [facility] [...] +--------+ + + + | CALCIUM, | 9.2 [...] + + + | ALK PHOS | 41 (L) | 53 - 141 U/L | [facility] | | | | | | DEPARTMENT | | | | | | OF | | | | | | PATHOLOGY | | + +--------+ + + + | AST(SGOT) | 27 | 15 - 41 U/L | [facility] | | | | | | DEPARTMENT | | | | | | OF | | | | | | PATHOLOGY | | + +--------+ + + + | SODIUM, | 141 | 136 - 145 | [facility] | | | PLASMA | | mmol/L | DEPARTMENT | | | (LAB) | | | OF | | | | | | PATHOLOGY | | + +--------+ + + + | POTASSIUM, | 4.6 | 3.5 - 5.1 | [facility] | [...] + + + | TOTAL CO2, | 31 (H) | 23 - 29 mmol/L | [facility] | | | PLASMA | | | DEPARTMENT | | | (LAB) | | | OF | | | | | | PATHOLOGY | | + +--------+ + + + | ALT (SGPT) | 20 | 13 - 48 U/L | [facility] | | | | | | DEPARTMENT | | | | | | OF | | | | | | PATHOLOGY | | + +--------+ + + + + + | Specimen | + + | | + + + + + | Narrative | Performed At | + + + | [id number] Estimated GFR > 60 mL/min/1.73 sq m if non- | [facility] | | [id number] Estimated GFR > 60 mL/min/1.73 sq m if GFR | DEPARTMENT OF | | is estimated using the MDRD equation recommended by the National | PATHOLOGY | | Kidney Disease Education Program. Estimated GFR Interpretive | | | Information: <60 mL/min/1.73 sq m Chronic Kidney Disease <15 | | | mL/mon/1.73 sq m Kidney Failure Estimated GFR greater than | | | 60mL/min/1.73 is of limited clinical Value. The MDRD equation is | | | not valid in the following situations: - Patients under 18 years of | | | age - Severe malnutrition or obesity - Vegetarian diet - Rapidly | | | changing kidney function | | + + + + + + + + | Performing | Address | City/State/Zipcode | Phone Number | | Organization | | | | + + + + + | [facility] | [address] | [place] [address] | | | PATHOLOGY | [address] | | | + + + + + | [facility] | [address] | [place] [address] | | | PATHOLOGY | [address] | | | + + + + + documented in this encounter Visit Diagnoses + + | Diagnosis | + + | IBS (irritable bowel syndrome) - Primary Irritable bowel syndrome | + + documented in this encounter"
--- OUTSIDE RECORDS SUMMARY | ~2020-05-04 | XMS | Encounter Summary ---
Demographics + + + | Address | [address] | | | [place] [address] | + + + | Home Phone [...] + | Gene Gee | ECON | [address] | | | | | [place], | | | | | [place] [address] | | + + + + + Care Team Providers + +------+ + | Care Assistant Professor In Family Studies Name | Role | Phone | + +------+ + | Alec Hill MD | PCP | | + +------+ + Reason for Visit + +--------+ + | Reason | Onset | Comments | | | Date | | + +--------+ + | Scheduling | 07/23/ | | | | 2017 | | + +--------+ + Encounter Details +--------+ + + + + | Date | Type | Department | Care Team | Description | +--------+ + + + + | 07/23/ | Telephone | Cardiology | Elijah Whalen, | Scheduling | | 2018 | | Arrhythmia at [facility] | MD [address] | | | | | [address] | [facility] | | | | | [facility] | [place], [place] | | | | | and [place], | [address] | | | | | [address] | [phone] | | | | | Floor [place], [place] | | | | | | [address] | | | | | | [phone] | | | +--------+ + + + [...] this encounter Miscellaneous Notes Telephone Encounter - Emily Jamison - 07/23/2017 10:38 AM PSTPatient calls with the following question: Patient called to schedule appt with Dr. Marlee aceves. Next available opening is August 15. Patient is requesting a sooner appt. Okay to send Mychart Response? ok The best phone number to reach the patient today is [phone]. Best time to reach the p atient is anytime ~~~~ ROUTE TO THE APPROPRIATE PROVIDER'S CAR NURSE POOL ~~~~~ documented in this encounter Plan of Treatment Not on filedocumented as of this encounter Visit Diagnoses Not on filedocumented in this encounter"
--- OUTSIDE RECORDS SUMMARY | ~2020-05-04 | XMS | Encounter Summary ---
Demographics + + + | Address | [address] | | | [place] [address] | + + + | Home Phone [...] + | Gene Gee | ECON | [address] | | | | | [place], | | | | | [place] [address] | | + + + + + Care Team Providers + +------+ + | Care Wire Threader Name | Role | Phone | + +------+ + | Alec Hill MD | PCP | | + +------+ + Reason for Visit + +--------+ + | Reason | Onset | Comments | | | Date | | + +--------+ + | Refill Request | 03/24/ | | | | 2019 | | + +--------+ + Encounter Details +--------+--------+ + + + | Date | Type | Department | Care Team | Description | +--------+--------+ + + + | 03/24/ | Refill | Pulmonary & | Juana Kilgore MD | Refill Request | | 2019 | | Critical Care | [address] | | | | | Medicine at | [address] [place], | | | | | [facility] | [place] [address] | | | | | [address] | [phone] | | | | | [facility] | | | | | | [facility], [address]rd Floor | | | | | | [place], [place] | | | | | | [address] | | | | | | [phone] | | | +--------+--------+ + + + [...] this encounter Miscellaneous Notes Telephone Encounter - Bob Quick MA - 03/24/2019 10:57 AM PDTFormatting of this note mi ght be different from the original. REFILL REQUEST DATE: March 24, 2019 PATIENT: Adriana Flynn [id number] Received refill request from the pharmacy. Reviewed chart, medication current on med list. Rx pended and routed to the provider for approval or denial. Requested Prescriptions Pending Prescriptions Disp Refills ipratropium 0.03 % nasal spray,non-aerosol 30 mL 11 Sig: Instill 2 sprays into each nostril three times daily. LAST APPOINTMENT: 11/27/18 at 3:33 pm NEXT APPOINTMENT: No future appointments scheduled in Pulmonary Disease. Patient's pharmacy has been verified: Yes [id number] [place] [id number] documented in this enco unter Plan of Treatment Not on filedocumented as of this encounter Visit Diagnoses Not on filedocumented in this encounter"
--- OUTSIDE RECORDS SUMMARY | ~2020-05-04 | XMS | Encounter Summary ---
Demographics + + + | Address | [address] | | | [place] [address] | + + + | Home Phone [...] + | Gene Gee | ECON | [address] | | | | | [place], | | | | | [place] [address] | | + + + + + Care Team Providers + +------+ + | Care Inside Sales Lead Name | Role | Phone | + +------+ + | Antony Ribera MD | PCP | | + +------+ + Reason for Visit +--------+ + | Reason | Comments | +--------+ + | Asthma | | +--------+ + Encounter Details +--------+---------+ + + + | Date | Type | Department | Care Team | Description | +--------+---------+ + + + | 10/22/ | Office | Pulmonary & | Pete Gee, | Cough (Primary Dx); | | 2012 | Visit | Critical Care | MD | Extrinsic asthma, | | | | Medicine at | | unspecified | | | | [facility] | | | | | | [address] | | | | | | [facility] | | | | | | [facility], 3rd Floor | | | | | | [place], [place] | | | | | | [address] | | | | | | [phone] | | | +--------+---------+ + + + [...] + + + | Blood Pressure | 135/87 | 10/22/2012 12:04 PM | | | | | PDT | | + + + + + | Pulse | 73 | 10/22/2012 12:04 PM | | | | | PDT | | + + + + + | Temperature | 36.8 C (98.2 F) | 10/22/2012 12:04 PM | | | | | PDT | | + + + + + | Respiratory Rate | 16 | 10/22/2012 12:04 PM | | | | | PDT | | + + + + + | Oxygen Saturation | 100% | 10/22/2012 12:04 PM | | | | | PDT | | + + + + + | Inhaled Oxygen | - | - | | | Concentration | | | | + + + + + | Weight | 65.2 kg (143 lb 12.8 | 10/22/2012 12:04 PM | | | | oz) | PDT | | + + + + + | Height | 167.6 cm (5' 6") | 10/22/2012 12:04 PM | | | | | PDT | | + + + + + | Body Mass Index | 23.21 | 10/22/2012 12:04 PM | | | | | PDT | | + + + + + documented in this encounter Patient Instructions Patient Instructions Pete Gee MD - 10/22/2012 1:29 PM PDTPatient Instructions 1) Your lung function still show some obstructive physiology consistent with asthma Continue using the pulmicort 3 puff twice daily. 2) With regards to your cough, I suspect it is still due to chronic inflammation, which is either due to persistent post nasal drip or acid reflux causing irritation in your posterior oropharynx. I would like an ENT doctor to look at your vocal cords. It might be useful to s ee a whip operator to discuss further options to control the acid reflux in the future. 3) Follow up in 6 months for the asthma with a new fellow. Pete Gee MD Pulmonary and Critical Care Fellow Pager # [phone] documented in this encounter Progress Notes Pau Navarrete MD - 10/27/2012 6:09 PM PDTI saw and evaluated the patient. I agree with t brigido findings and the plan of care as documented in the fellow s note. Nocturnal cough likel y secondary to rhinosinusitis/GERD with initial workup recommendations as listed. PAU NAVARRETE MD PULMONARY FACULTY [address] [facility] Mailcode: [id number] [place] [id number] avanPete MD - 10/23/2012 10:10 AM PDT Pulmonary Clinic Follow Up Visit Date: 10/22/12 Primary Care Provider: Latosha Ribera MD [facility] [address] [place] [address], [address] [place] [address] Problem List: 1. Asthma -- on inhaled [...] 7. History of breast cancer (dx 02/19, [id number] s/p mastectomy & chemo, on Arimidex) 8. Mitral valve prolapse 9. Supraventricular tachycardia, on dofetilide 10. History of PE September 2008 - off coumadin Subjective: The patient is a 66 y/o female with a history of seasonal allergies and asthma who presents to the pulmonary clinic for routine follow up evaluation of her asthma. Last seen in February 2012, her symptoms are stable but she continues to have a persistent nagging cough. Occurs at night mostly but also during the day. Symptoms also bothering her when she talks which in duces a cough. Last month, we decided to go up on pulmicort from 2 puff twice daily to 3 puf f twice daily. She was on prednisone last year and noted her symptoms had significantly impr emir on systemic steroids but she does not like the side effects and wants to avoid predniso ne. She continues to have sinus congestions with post nasal drainage. She also continues to have GERD symptoms despite aciphex therapy. Current Outpatient Prescriptions Medication Sig atenolol 50 [...] once daily. fluticasone (FLONASE) 50 mcg/actuation Nasal [place], Suspension Instill 1 [place] into eac h nostril two times daily. [...] previous visit. Visit Vitals Item Reading BP 135/87 Pulse 73 Temp (Src) 36.8 C (98.2 F) (Oral) RR 16 Ht 1.676 m (5' 6") Wt 65.227 kg (143 lb 12.8 oz) SpO2 100% BMI 23.21 kg/(m^2) Physical Exam: General: Pleasant female in [...] No evidence of rash or skin changes. 10/22/2012 Spirometry Ref Pre Pre Post Post Post Loyd % Ref Loyd % Ref % Chg FVC Liters 3.30 2.69 82 2.62 79 -3 FEV1 Liters 2.51 1.75 70 1.91 76 9 FEV1/FVC % 76 65 86 73 96 12 RDI34-92% L/sec 2.07 0.89 43 1.37 66 54 PbjWAV67-06 L/sec 0.89 1.34 51 PEF L/sec 6.06 6.52 108 7.17 118 10 FIF50% L/sec 3.66 3.24 -12 Assessment: The patient is a very pleasant 67 y/o female who presents to the pulmonary clinic for [facility] [place] follow up evaluation of her asthma. - Symptoms are fairly controlled except for her cough at night. I suspect her cough could b e due to asthma and she should continue inhaled steroid and prn albuterol. I believe post na los drip and GERD are exacerbating her symptoms. I would like to see her ENT physician Dr Almodovar in [place] to have her upper airways looked at. If her upper airway exam is nega tive, would consider bronchoscopy to rule out Sjogren's. There has been several case reports of Sjogren's causing airway disease. Would also strongly recommend follow up with GI regard ing her acid reflux. She would like to wait until she recovers from her recent breast recons truction surgery before undergoing further work up. I would suggest getting esophageal pH pr obe testing to try and correlate her cough with acid reflux. She should follow up in 6 month s or sooner as needed for acute issues. The patient was evaluated and discussed with attending physician Dr. Navarrete who agrees with the above assessment and plan. Pete Gee MD Pulmonary and Critical Care Fellow Pager # [phone] owan Duckworth - 10/22/2012 12:52 PM PDT1. In the past 4 weeks, how much time did your asthma keep you from getting as much done at work, school, or home? 4 - A little of the time 2. During the past 4 weeks, how often have you had shortness of breath? 3 - 3 to 6 times a week 3. During the past 4 weeks, how often did your asthma symptoms (wheezing, coughing, shortne ss of breath, chest tightness, or pain) wake you up at night or earlier than usual in the mo rning? 2 - 2 or 3 nights a week 4. During the Past 4 weeks, how often have you used your rescue inhaler or nebulizer medica tion (such as albuterol)? 4 - Once a week or less 5. How would you rate your asthma control during the past 4 weeks? 4 - Well controlled Total Score: 17 Score ?20 - well controlled Score ? 19 - not well controlled documented in this enc ounter Plan of Treatment Not on filedocumented as of this encounter Visit Diagnoses + + | Diagnosis | + + | Cough - Primary | + + | Extrinsic asthma, unspecified | + + documented in this encounter
--- OUTSIDE RECORDS SUMMARY | ~2020-05-04 | XMS | Encounter Summary ---
Demographics + + + | Address | [address] | | | [place] [address] | + + + | Home Phone [...] + | Gene Gee | ECON | [address] | | | | | [place], | | | | | [place] [address] | | + + + + + Care Team Providers + +------+ + | Care Athletic Coordinator Name | Role | Phone | [...] Description | +--------+---------+ + + + | 09/10/ | Office | Hematology/Medical | Stevan Velazquez, | Breast Cancer (HCC) | | 2008 | Visit | Oncology at [facility] | MD [address] | (Primary Dx) | | | | [address] | [place], [place] | | | | | Mailcode: [facility] | [address] | | | | | [facility] | [phone] | | | | | and [place], | | | | | | [facility] | | | | | | Floor [place], [place] | | | | | | [address] | | | | | | [phone] | | | +--------+---------+ + + + [...] + + + | Blood Pressure | 88/59 | 09/10/2008 11:56 AM | | | | | PST | | + + + + + | Pulse | 70 | 09/10/2008 11:56 AM | | | | | PST | | + + + + + | Temperature | 36.7 C (98 F) | 09/10/2008 11:56 AM | | | | | PST [...] | 65.6 kg (144 lb 11.2 | 09/10/2008 11:56 AM | | | | oz) | PST | | + + + + + | Height | - | - | | + + + + + | Body Mass Index | 23.53 | 09/08/2008 3:44 PM | | | | | PST | | + + + + + documented in this encounter Progress Notes Stevan Velazquez MD - 09/10/2008 12:44 PM PSTFormatting of this note might be different fro m the original. Adriana is a pleasant 62 y/o WF [...] She has been on arimidex for the past 8 months. Her other medical history includes low bone density, paroxysmal atrial tachycardia , sjogren's syndrome, and frequent SBOs due to multiple abdominal surgeries that are diverti culitis and ruptured of hepatic cyst. She was most recently diagnosed with pulmonary hyperte nsion. She saw pulmonology recently and more detailed tests are being planned. She is here t rocael with her Gene for follow up. S- Adriana noted that she is having more difficulty breathing since the last end of last year . When she Walk slow she can go quite a way But if she walks fast, she will have SOB. Climbing stairs- 14 stairs at home- single flight- SOB- can go to the top without resting n ow Currently not very SOB Some coughing- not that often though only once in a while Some phlegm- yellow to greenish at times but not frequent. No blood in the sputum No fever or night sweat. Feeling "cold" all the time. Tightness underneath sternum- at times- not associated with activity can happen any time. Was having heartburn and acid regurgitation. Doing pretty good with Protonix- for years now perhaps five years now. Not every often with sour taste in the mouth. No abd pain No N/V No numbness or tingling sensation No headache Weight stable. A little constipation- keep on stool softener Last flare of abdominal pain- last fall. Pneomonia shot and shingle shots - 2007 Itching around left nipple with new bra- itching and tingling lasting seconds each time sin ce Aug 2008. No nipple discharge. Patient was seen by Dr. Heart after her visit with me to day. Medication unchanged. She is on crestor, dofetilide, calcium and vitamin D, arimidex, topro l, boniva, inhalers. O- Filed Vitals: 09/10/2008 11:56 AM BP: 88/59 Pulse: 70 Temp: 36.7 C (98 F) TempSrc: Oral Weight: 65.635 kg (144 lb 11.2 oz) PainSc: 0 - Zero Alert and oriented Not pale or icteric No oral lesion Neck supple No JVE No tenderness on percussion over sinuses Chest, symmetric expansion, breathing sound is clear. No wheezing or rales Heart, RR, no murmur or gallop Abd, soft and non tender, no liver or spleen or mass palpable No increased rigidity or rebound No knocking pain down the spine No CVA tenderness Lymphatics, no cervical, axillary, supra-clav or infra-clav LAD palpable Breast exam- right breast surgically missing. No palpable skin change nor nodule. Left breast exam- showed no palpable abnormality. No overlying skin change, nipple discharg e. Neuro intact. Lab- Component Reference Range 08/14/2008 08/14/2008 GLUCOSE (LAB) 60-99 mg/dL See cmnt 84 BUN 6-20 mg/dL See cmnt 9 CREATININE,PLASMA 0.60-1.10 mg/dL See cmnt 0.78 TOTAL PROTEIN 6.1-7.9 g/dL See cmnt 6.8 ALBUMIN (LAB) 3.5-4.7 g/dL See cmnt 3.5 CALCIUM (LAB) 8.6-10.2 mg/dL See cmnt 9.8 BILIRUBIN TOTAL 0.3-1.2 mg/dL See cmnt 1.1 ALK PHOS 53-141 U/L See cmnt 66 AST(SGOT) 15-41 U/L See cmnt 25 SODIUM (LAB) 134-143 mmol/L See cmnt 142 POTASSIUM (LAB) 3.4-5.0 mmol/L See cmnt 4.5 CHLORIDE 97-108 mmol/L See cmnt 107 TOTAL CO2 23-31 mmol/L See cmnt 25 ALT (SGPT) 13-48 U/L See cmnt 21 AST CMNT See cmnt POTASSIUM CMNT See cmnt BILI T CMNT See cmnt NEUTROPHIL % 50-70 % 60 LYMPHOCYTE % 18-42 % 31 MONOCYTE % 2-8 % 7 EOS % 1-3 % 1 BASO % Low: < 3 % 1 NEUTROPHIL # 1.8-7.7 K/cu mm 3.9 LYMPHOCYTE # 1.0-4.8 K/cu mm 2.0 MONOCYTE # Low: < 0.9 K/cu mm 0.5 EOS # Low: < 0.6 K/cu mm 0.1 BASO # Low: < 0.3 0.1 WHITE CELL COUNT 4.4-11.0 K/cu mm See cmnt 6.5 RED CELL COUNT 4.00-5.20 M/cu mm See cmnt 4.68 HEMOGLOBIN 12.0-16.0 g/dL See cmnt 13.6 HEMATOCRIT 36.0-46.0 % See cmnt 39.5 MCV 80.0-96.0 fL See cmnt 84.5 MCHC 33.4-35.5 g/dL See cmnt 34.5 RDW 11.5-15.0 % See cmnt 14.8 PLATELET COUNT 150-400 K/cu mm See cmnt 166 CHOLESTEROL (LAB) Low: < 200 mg/dL 219 (H) TRIGLYCERIDES Low: < 150 mg/dL 83 HDL CHOLESTEROL Low: > 40 mg/dL 41 LDL CHOLESTEROL, CALCULATED Low: < 100 mg/dL 161 (H) VLDL CHOLESTEROL, CALCULATED Low: < 31 mg/dL 17 NON-HDL CHOLESTEROL Low: < 130 mg/dL 178 (H) D-DIMER (PE OR DIC) Low: < 0.50 ug/mLFEU 2.64 (H) B NATRIURETIC PEPTIDE Low: < 101 pg/mL 200 (H) TSH 0.34-5.60 uIU/ml 1.30 PTH, SERUM 15.0-75.0 pg/mL 36.0 INR 0.90-1.20 INR 1.14 A/P- Adriana is back for follow up. She noted numbness sensation around her left nipple after she tries on new undergarment. I could not appreciate anything on exam and the patient was seen after visit by Dr. Heart. She otherwise has negative CBE. She has no swelling of her right arm and she has excellent ROM of her right shoulder. Notable event is that Adriana has developed SOB and was seen by cardiology and pulmonology. S he was found to have elevated pulmonary pressure. She is to get cardiac cath for pulmonary a rtery pressure measurement and trial of therapy. I have performed PUBMED search and could not any literature linking taxotere, cytoxan or ar imidex to pulmonary hypertension. In clinical trials, pulmonary hypertension has not been re ported with any of these agents. I think it is all right for her to continue on arimidex. She will work with cardiology and outreach team member for cardiac cath and management of her pulm onary hypertension. We will follow up with her in 4 months. documented in this en counter Miscellaneous Notes Scan - Other, Faculty - 12/03/2008 10:20 AM PDT can - Other, Faculty - 12/01/2008 2:24 PM PDT Electronica lly signed by Interface, Pointers In at 12/01/2008 2:24 PM PDTScan - Other, Faculty - 11/27 1:54 PM PDT P DTScan - Other, Faculty - 10/01/2008 12:04 PM PDT documented in this encounter Plan of Treatment Not on filedocumented as of this encounter Visit Diagnoses + + | Diagnosis | + + | Breast cancer (HCC) - Primary Malignant neoplasm of breast (female), unspecified site | + + documented in this encounter
--- OUTSIDE RECORDS SUMMARY | ~2020-05-04 | XMS | Encounter Summary ---
Demographics + + + | Address | [address] | | | [place] [address] | + + + | Home Phone | | + + + | Preferred Language | Unknown | + + + | Marital Status | | + + + | [employer] Affiliation | 1013 | + + + | Race | White | + + + | Ethnic Group | Not or | + + + Author + + + | Author | [facility] | | | and [place] | + + + | Organization | [facility] | | | and [...] Providers + +------+ + | Care Instructional Support Technician Name | Role | Phone | + +------+ + | Alec Hill MD | PCP | | + +------+ + Reason for Referral Diagnostic/Screening (Routine) + +--------+ + + + + | Status | Reason | Specialty | Diagnoses / | Referred By | Referred To | | | | | Procedures | Contact | Contact | + +--------+ + + + + | Pending | | Cardiology | Diagnoses | Martin Kelley | JEANCARLOS | | Review | | | Mitral | MD Todd | CARDIOLOGY | | | | | valve | [address] | | | | | insufficienc | [address] | [address] | | | | | y, | [place] [address] | | | | | | unspecified | [place], [place] | [place], [place] | | | | | etiology | [address] | [address] | | | | | Procedures | Phone: | Phone: | | | | | ECHO | [phone] | [phone] | | | | | Complete | Fax: | Fax: | | | | | | [phone] | [phone] | + +--------+ + + + + Reason for Visit + + + | Reason | Comments | + + + | Follow-up | | + + + Encounter Details +--------+---------+ + + + | Date | Type | Department | Care Team | Description | +--------+---------+ + + + | 04/30/ | Office | [facility] EP | Martin Kelley, | Mitral valve | | 2020 | Visit | CARDIOLOGY [place] | [address] | insufficiency, | | | | [address] | [address] [address] [place], | unspecified etiology | | | | [place], [place] | [place] [address] | (Primary Dx); | | | | [address] | [phone] | Paroxysmal atrial | | | | [phone] | | fibrillation (HCC); | | | [...] Instructions Patient Instructions Martin Kelley MD - 04/30/2020 8:30 AM PDTTake extra 5 mg of bisop rolol if your heart is racing. Do not take that for extra heartbeats Stop the apixaban 48 hours before surgery on your shoulder, and resume it when okay with Dr Jose Choi. Continue your bisoprolol and dofetilide at usual doses and times before surgery and make tong re to take it before the operation. For pain, take Tylenol up to 3000 mg/day (for sure no more than 4000 mg/day). Take 650 to 1000 mg every 4 to 6 hours as needed 20 9:28 AM PDT documented in this encounter Progress Notes Martin Kelley MD - 04/30/2020 8:30 AM PDTFormatting of this note might be different fr om the original. ELECTROPHYSIOLOGY OUTPATIENT FOLLOW UP PATIENT NAME: Adriana Flynn : 1945: AGE: 74 y.o. (home) : PRIMARY CARE: Alec Hill MD Requesting Physician: Dr. Hill Plan EP PROBLEMS ADDRESSED AT TODAY'S VISIT Problem List Moderate tricuspid regurgitation by prior echocardiogram Overview Moderate MR and TR on echo. Continue losartan. Repeat an echo next visit (2 years after the last visit) 04/30/2020: Because of moderate MR and TR, hydralazine was attempted but was not tolerated because of h ypotension. I have asked her to try that again and start with 5 mg twice per day and uptitr ate that as she tolerates. Continue losartan 100 milligrams at bedtime. Paroxysmal atrial fibrillation Overview Her chads 2 [...] bisoprolol if needed. (Or take it early) 04/30/2020: She has irregular heartbeats lasting for 3 to 5 minutes almost daily. Denies any tachycard ias. She has been taking extra bisoprolol once or twice per week for the last 2 to 3 weeks (5 mg tablet). She drinks only rare caffeinated beverages (decaffeinated green tea). She has right shoulder surgery scheduled with Dr. Choi in the near future. Have recomme nded taking her dofetilide and bisoprolol the morning of the surgery and continue it periope ratively at the current doses. Can stop apixaban 48 hours before the surgery and resume it as soon as okay with Dr. Choi afterwards. If atrial fibrillation occurs perioperatively, intravenous metoprolol can be given as needed for rate control. She has been reminded to k eep caffeinated beverages to a minimum. Because of moderate MR and TR, hydralazine was atte mpted but was not tolerated because of hypotension. I have asked her to try that again and start with 5 mg twice per day and uptitrate that as she tolerates. COMPREHENSIVE PROBLEM LIST Patient Active Problem List [...] fracture 08/07/2018 Note Last Updated: 04/08/2019 Reclast [id number]; September 2018 DXA 06/13/17: L -1.4 H [...] Last Updated: 02/27/2019 Diagnosed in 1999 at [facility]. On albuterol and ipratropium bromide nebulizer and Pulmicort/ Flonase and Spiriva inhalers. Hx of pulmonary embolus 09/30/2017 Note Last Updated: 02/27/2019 She had a right leg deep venous thrombosis and pulmonary embolus involving the left lung on September 17, 2008, in the context of recent breast cancer therapy. Moderate tricuspid regurgitation by prior echocardiogram 08/02/2017 Note Last Updated: 04/30/2020 Moderate MR and TR on echo. Continue losartan. Repeat an echo next visit (2 years after the last visit) 04/30/2020: Because of moderate MR and TR, hydralazine was attempted but was not tolerated because of h ypotension. I have asked her to try that again and start with 5 mg twice per day and uptitr ate that as she tolerates. Continue losartan 100 milligrams at bedtime. Atrial tachycardia (HCC) 07/31/2017 Note Last Updated: [...] atrial fibrillation (HCC) 07/31/2017 Note Last Updated: 04/30/2020 Her chads 2 vascular score is 3.Preserved [...] bisoprolol if needed. (Or take it early) 04/30/2020: She has irregular heartbeats lasting for 3 to 5 minutes almost daily. Denies any tachycard ias. She has been taking extra bisoprolol once or twice per week for the last 2 to 3 weeks (5 mg tablet). She drinks only rare caffeinated beverages (decaffeinated green tea). She has right shoulder surgery scheduled with Dr. Choi in the near future. Have recomme nded taking her dofetilide and bisoprolol the morning of the surgery and continue it periope ratively at the current doses. Can stop apixaban 48 hours before the surgery and resume it as soon as okay with Dr. Choi afterwards. If atrial fibrillation occurs perioperatively, intravenous metoprolol can be given as needed for rate control. She has been reminded to k eep caffeinated beverages to a minimum. Because of moderate MR and TR, hydralazine was atte mpted but was not tolerated because of hypotension. I have asked her to try that again and start with 5 mg twice per day and uptitrate that as she tolerates. Mitral valve prolapse 07/31/2017 Note Last Updated: [...] 02/03/2014 Breast cancer, right (HCC) 05/21/2008 Recommendations: Take extra 5 mg of bisoprolol if your heart is racing. Do not take that for extra heartbea ts Stop the apixaban 48 hours before surgery on your shoulder, and resume it when okay with Dr Jose Choi. Continue your bisoprolol and dofetilide at usual doses and times before surgery and make tong re to take it before the operation. For pain, take Tylenol up to 3000 mg/day (for sure no more than 4000 mg/day). Take 650 to 1000 mg every 4 to 6 hours as needed HISTORY OF PRESENT ILLNESS This patient turns today, feeling well for the most part. She has had frequent episodes of an irregular rhythm described as palpitations but no tachycardias. They occur almost daily and she has been taking bisoprolol 5 mg as needed up to once or twice per week for the last 2 to 3 weeks. Denies symptoms of angina or CHF. Denies any syncope. She did not tolerate hydralazine in the past because of severe lightheadedness and presyncope when she was stack ing wood. She drinks rare caffeine (occasional decaffeinated green tea). 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 an d has had some associated numbness in the right arm and fingers (median nerve distribution o n her fingers) Allergies Allergen Reactions Cardizem [Diltiazem] Hives Localized [...] 6 hours as needed., Disp: , Rfl: bisoprolol (ZEBETA) 10 MG tablet, TAKE ONE TABLET BY MOUTH EVERY DAY, Disp: 90 tablet, Rfl: 3 budesonide (PULMICORT [...] , Rfl: dofetilide (TIKOSYN) 250 mcg capsule, TAKE ONE CAPSULE BY MOUTH TWICE A DAY, Disp: 180 capsule, Rfl: 11 ELIQUIS 5 MG tablet, TAKE ONE TABLET BY MOUTH TWICE A DAY, Disp: 180 tablet, Rfl: 3 ezetimibe (ZETIA) 10 mg tablet, TAKE ONE TABLET BY MOUTH EVERY DAY, Disp: 90 tablet, R fl: 3 fluticasone (FLONASE) 50 mcg/nasal spray, 1 spray by Each Nare route 2 (two) times bay ly., Disp: , Rfl: hydrALAZINE (APRESOLINE) 10 mg tablet, Take 1 tablet by mouth 2 times daily., Disp: 18 0 tablet, Rfl: 3 ipratropium (ATROVENT HFA) 17 mcg/puff inhaler, Inhale 2 puffs into the lungs every 6 hours., Disp: , Rfl: ipratropium (ATROVENT) 500 mcg/2.5 mL nebulizer solution, Inhale 0.5 mg into the lungs ., Disp: , Rfl: levalbuterol (XOPENEX HFA) 45 mcg/puff inhaler, , Disp: , Rfl: levalbuterol (XOPENEX HFA) 45 mcg/puff inhaler, Inhale 1-2 puffs into the lungs., Disp : , Rfl: levalbuterol (XOPENEX) 1.25 mg/3 mL [...] , Rfl: losartan (COZAAR) 100 MG tablet, TAKE ONE TABLET BY MOUTH EVERY EVENING, Disp: 90 tabl et, Rfl: 3 MAGNESIUM PO, Take 1 tablet by mouth., Disp: , Rfl: methylPREDNISolone (MEDROL DOSEPAK) 4 mg tablet, , Disp: , Rfl: ofloxacin (OCUFLOX) 0.3% ophthalmic solution, 1 drop., Disp: , Rfl: Polyethylene Glycol 3350 (PEG 3350) POWD, Take 17 g by mouth Daily as needed., Disp: , Rfl: potassium chloride (KLOR-CON M20) 20 mEq ER tablet, TAKE ONE TABLET BY MOUTH TWICE A D AY (Patient not taking: Reported on 04/30/2020), Disp: 180 tablet, Rfl: 3 potassium chloride [...] significance. DATA Laboratory values which I reviewed 04/30/2020 are as follows: Lab Results Component Value Date WBC 9.08 08/02/2017 HGB 12.6 08/02/2017 Lab Results Component [...] are reviewed and negative. PHYSICAL EXAM BP 133/77 | Pulse 58 | Ht 1.651 m (5' 5") | Wt 64.4 kg (142 lb) | SpO2 99% | BMI 23.63 kg/m Physical Exam Constitutional: She is oriented [...] content normal. Vitals reviewed. Martin Kelley MD 04/30/2020 9:50 AM PDT *This report has been prepared using a voice recognition system. The report was reviewed f or accuracy, however, sound-alike word errors, addition and/or deletions may occur. If there is any question about this report please contact me. Patient Instructions Take extra 5 mg of bisoprolol if your heart is racing. Do not take that for extra heartbea ts Stop the apixaban 48 hours before surgery on your shoulder, and resume it when okay with Dr Jose Choi. Continue your bisoprolol and dofetilide at usual doses and times before surgery and make tong re to take it before the operation. For pain, take Tylenol up to 3000 mg/day (for sure no more than 4000 mg/day). Take 650 to 1000 mg every 4 to 6 hours as needed Enma Rojas CMA - 04/30/2020 8:30 AM PDTAncskylar NOBLE Note- Electrophysiology Patient ID: Adriana Flynn is a 74 y.o. female. Review of Systems Constitutional: Negative for chills, fever, malaise/fatigue and weight loss. HENT: Negative for congestion and sore throat. Respiratory: Negative for cough and shortness of breath. Cardiovascular: Positive for palpitations. Negative for chest pain and leg swelling. Gastrointestinal: Negative for abdominal pain and blood in stool. Genitourinary: Negative for hematuria. Musculoskeletal: Positive for myalgias. Neurological: Negative for dizziness, sensory change and loss of consciousness. Have you ever had a sleep study? [...] | | | | | [place] [address] | | | | | | [phone] | | | | | | | | +--------+ + + + + | 05/19/ | Appointment | Cardiology | Martin Kelley, | | 2019 | | | MD [address] | | | | | | [place], | | | | | | [place] [address] | | | | | | [phone] | | | | | | | | +--------+ + + + + | 11/26/ | Office | Cardiology | Martin Kelley, | | | 2020 | Visit | | MD [address] | | | | | | [place], | | | | | | [place] [address] | | | | | | [phone] | | | | | | | | +--------+ + + + + + + +--------+ + + | Name | Type | Priori | Associated Diagnoses | Order Schedule | | | | ty | | | + + +--------+ + + | ECHO Complete | Echocardiog | Routin | Mitral valve | Expected: | | | kam | e | insufficiency, | 04/30/2020, Expires: | | | | | unspecified etiology | 04/30/2021 | + + +--------+ + + documented as of this encounter Visit Diagnoses + + | Diagnosis | + + | Mitral valve insufficiency, unspecified etiology - Primary | + + | Paroxysmal atrial fibrillation (HCC) Atrial fibrillation | + + | Moderate tricuspid regurgitation by prior echocardiogram Diseases of tricuspid valve | + + documented in this encounter
--- OUTSIDE RECORDS SUMMARY | ~2020-05-04 | XMS | Encounter Summary ---
Demographics + + + | Address | [address] | | | [place] [address] | + + + | Home Phone [...] + | Gene Gee | ECON | [address] | | | | | [place], | | | | | [place] [address] | | + + + + + Care Team Providers + +------+ + | Care Opto Mechanical Technician Name | Role | Phone | + +------+ + | Alec Hill MD | PCP | | + +------+ + Encounter Details +--------+ + + + + | Date | Type | Department | Care Team | Description | +--------+ + + + + | 03/26/ | Inside | Bone Density at | Tapan Horowitz MD | | | 2017 | Referral | [facility] [address] | [address] | | | | Order | [facility] | [address] [place], | | | | | and Healing, | [place] [address] | | | | | [place] [address] | [phone] | | | | | [place], [place] | | | | | | [address] | | | | | | [phone] | | | +--------+ + + + [...] on filedocumented as of this encounter Results BONE DENSITOMETRY [...]
--- OUTSIDE RECORDS SUMMARY | ~2020-05-04 | XMS | Encounter Summary ---
Demographics + + + | Address | [address] | | | [place] [address] | + + + | Home Phone [...] + | Gene Gee | ECON | [address] | | | | | [place], | | | | | [place] [address] | | + + + + + Care Team Providers + +------+ + | Care Electronic Console Display Operator Name | Role | Phone | + +------+ + | Antony Ribera MD | PCP | | + +------+ + Reason for Visit +--------+--------+ + | Reason | Onset | Comments | | | Date | | +--------+--------+ + | Other | 08/27/ | Regarding letter of medical necessity and clinical notes | | | 2007 | | +--------+--------+ + Encounter Details +--------+ + + + + | Date | Type | Department | Care Team | Description | +--------+ + + + + | 08/27/ | Telephone | Hematology/Medical | Stevan Velazquez, | Other (Regarding | | 2007 | | Oncology at [facility] | [address] | letter of medical | | | | [address] | [place], [place] | necessity and | | | | Mailcode: [id number] | [phone] | clinical notes) | | | | [facility] | [phone] | | | | | and Healing, | | | | | | [facility] | | | | | | Floor [place], [place] | | | | | | [address] | | | | | | [phone] | | | +--------+ + + + [...] this encounter Miscellaneous Notes Telephone Encounter - Tamica Nevarez - 09/17/2007 10:39 AM PSTRouting to close encounterRobyn lectronically signed by Tamica Nevarez at 09/17/2007 10:39 AM PSTTelephone Encounter - Rosalinda Rosas RN - 08/27/2007 10:11 AM PSTSpoke to Zari Webber and she will refax form to be fi lled out for medical necessity. 10: 11 AM PSTTelephone Encounter - Tamiac Nevarez - 08/27/2007 8:39 AM Madelyn Webber from [facility] called to check on the status of a request for medical necessity and clinical not es that was faxed last month. Zari is with the lab that does the Onco type DX text that th e doctor's order. Please call her back at [phone] option #1, then option #2.Electronic ally signed by Tamica Nevarez at 08/27/2007 8:39 AM PSTdocumented in this encounter Plan of Treatment Not on filedocumented as of this encounter Visit Diagnoses Not on filedocumented in this encounter"
--- OUTSIDE RECORDS SUMMARY | ~2020-05-04 | XMS | Encounter Summary ---
Demographics + + + | Address | [address] | | | [place] [address] | + + + | Home Phone [...] + | Gene Gee | ECON | [address] | | | | | [place], | | | | | [place] [address] | | + + + + + Care Team Providers + +------+ + | Care Human Resources Professional Name | Role | Phone | + +------+ + | Antony Ribera MD | PCP | | + +------+ + Encounter Details +--------+ + + + + | Date | Type | Department | Care Team | Description | +--------+ + + + + | 12/06/ | MyChart | Cardiology | Elijah Whalen, | RE: Return of heart | | 2017 | Encounter | Arrhythmia at [facility] | [address] | monitor | | | | [address] | [address] | | | | | [facility] | [place], [place] | | | | | and Healing, | [address] | | | | | Building | [phone] | | | | | Floor [place], [place] | | | | | | [address] | | | | | | [phone] | | | +--------+ + + + [...]
--- OUTSIDE RECORDS SUMMARY | ~2020-05-04 | XMS | Encounter Summary ---
Demographics + + + | Address | [address] | | | [place] [address] | + + + | Home Phone [...] + | Gene Gee | ECON | [address] | | | | | [place], | | | | | [place] [address] | | + + + + + Care Team Providers + +------+ + | Care Delinquent Tax Collector Name | Role | Phone | + +------+ + | Antony Ribera MD | PCP | | + +------+ + Reason for Visit + +--------+ + | Reason | Onset | Comments | | | Date | | + +--------+ + | Refill Request | 03/13/ | metoprolol tartrate 50mg tabs | | | 2015 | | + +--------+ + | Appointment | 03/13/ | Needed | | | 2015 | | + +--------+ + Encounter Details +--------+--------+ + + + | Date | Type | Department | Care Team | Description | +--------+--------+ + + + | 03/13/ | Refill | Cardiology | Elijah Whalen, | Refill Request | | 2015 | | Arrhythmia at [facility] | [address] | (metoprolol tartrate | | | | [address] | [facility] [facility] [address] | 50mg tabs); | | | | [facility] | [place], [place] | Appointment (Needed) | | | | and Healing, | [address] | | | | | [facility] | [phone] | | | | | [place], [place] | | | | | | [address] | | | | | | [phone] | | | +--------+--------+ + + + [...] Notes Telephone Encounter - Meagan Tubbs - 03/13/2016 2:45 PM PDTFormatting of this note might b e different from the original. [employer] message sent to patient to schedule in cardiology. Patient Name Sex Adriana King ([id number]) Female 1945 Message Pt is past due for 6 month follow up. Her previous home care scheduler was Dr Fuentes. Please dolores broderick as she is past due. Thank you elephone Encounter - Sergio Neal MA - 03/13/2016 11:43 AM PDTFormatting of this note might be different from the or iginal. Refill Request for: Requested Prescriptions Pending Prescriptions Disp Refills metoprolol tartrate 50 mg oral tablet 450 tablet 3 Sig: Take 75mg TID. May take an additional 25mg PRN palpitations Patient Last Seen: 02/08/15 with Alfredo Follow Up Plan: RTC in 6 months. No follow up has been scheduled. Will notify PAS to dolores broderick. Please review and sign if appropriate elephone Encounter - Meagan Tubbs - 03/13/2016 11:21 AM PDTPharmacy Preference: [facility] ([facility] name [facility] location) Provider: Kedarcker Medication metoprolol tartrate 50 mg oral tablet Patient takes 75 mg 3 x daily How many days' worth of medication does patient have? Have about 1 wk If less than 2 day s on hand, route to MED REFILL POOL as HIGH PRIORITY. Best number to reach patient today: [phone] ~~~ROUTE TO P CAR MED REFILL ~~~ If less than 2 days on hand, send as HIGH PRIORITY documented in this encounter Plan of Treatment Not on filedocumented as of this encounter Visit Diagnoses Not on filedocumented in this encounter"
--- OUTSIDE RECORDS SUMMARY | ~2020-05-04 | XMS | Encounter Summary ---
Demographics + + + | Address | [address] | | | [place] [address] | + + + | Home Phone [...] + | Gene Gee | ECON | [address] | | | | | [place], | | | | | [place] [address] | | + + + + + Care Team Providers + +------+ + | Care Vehicle Detailer Name | Role | Phone | + +------+ + | Antony Ribera MD | PCP | | + +------+ + Reason for Visit + + + | Reason | Comments | + + + | Lymphedema | | + + + Physical Therapy (Routine) +--------+--------+ + + + [...] | | | | | THERAPY | [place], [place] | [place], [place] | | | | | REFERRAL | [address] | [address] Phone: | | | | | | Phone: | [phone] | | | | | | [phone] | | | | | | | Fax: | | | | | | | [phone] | | +--------+--------+ + + + + Encounter Details +--------+---------+ + + + | Date | Type | Department | Care Team | Description | +--------+---------+ + + + | 10/31/ | Office | [facility] | Katty Castillo PT | Lymphedema (Primary | | 2007 | Visit | Therapy Services at | [address] | Dx) | | | | [facility] | [place] [address] | | | | | [address] | [phone] | | | | | [facility] | | | | | | and Healing, | | | | | | Building , | | | | | | Floor [place], [place] | | | | | | [address] | | | | | | [phone] | | | +--------+---------+ + + + [...] documented as of this encounter Progress Notes Katty Castillo - 11/01/2007 10:03 AM [id number] LAUREN BAXTER Date of : 1945 Start of care: 11/01/2007 Date of onset: 09/17/2007 Referring/Attending Practitioner: [facility] . Primary/Referral Diagnosis/ICD-9: LYMPHEDEMA[457.1S] Insurance: Payor: [facility] Plan: BS PPP Product Type: PPO Number visits used/authorized: 07/27 [facility] PHYSICAL THERAPY EVALUATION SUBJECTIVE: History of Presenting Problem: Lauren Baxter is a 62 y.o. female who [facility] complaints on the surgical side: swelling/fullness and pain in the right arm. Maste ctomy 03/19/07, 04/19/[address] dissection, 06/04/07 surgical revision of scar tissue due to esvin ulder probs. Started PT for scar tissue mobility until early September, sessions stopped due to symptoms in arm, also started having painful "popping" in R shoulder. Now well healed. 1 sun ago had pain in R arm after shoveling snow, swelling noticed 2-3 weeks after She has had a Right mastectomy. Number of nodes removed: 16 axillary. Cancer treatment prio r to surgery:None. Current cancer treatment: None. Future treatment plans include: None. Pain level (0-10): Patient reports a pain level of 5 today. Prior/concurrent treatment: physical therapy for scar tissue and shoulder mobility. Lauren Holman sleeps:6 hrs/night. Recent weight change: none, but feels like she is retaining fluid (weighs about 4 pounds mo re at night than in the am) Lauren currently lives with spouse. specialty person:difficulty with repetitive motions. Previous exercise/recreational level: cycling and PT 3 days per week, no home exercise prog nelly. 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 breast cancer Occupation not currently working. Current funtional level: indep but painful Medications: Current outpatient prescriptions : potassium chloride SR 10 mEq Oral Capsule, Sustained Release, two daily, Disp: 60, Rfl: 12 anastrozole (ARIMIDEX) 1 mg Oral Tablet, take 1 tablet (1 mg) by oral route once daily, Dis p: 30, Rfl: 3 Famotidine (PEPCID) 20 mg Oral Tablet, take 1 tab once a day in the evening, Disp: , Rfl: Moricizine HCl 250 mg Oral Tablet, take 1 tablet (250 mg) by oral route every 8 hours for 1 1/2 weeks during chemo, Disp: , Rfl: POTASSIUM CHLORIDE OR, 20meq take 1 tab daily, Disp: , Rfl: Potassium Chloride 20 mEq Oral Tab Sust.Rel. Particle/Crystal, one daily, Disp: 30, Rfl: 12 Oxycodone HCl 30 mg Oral Tablet, take 1 tablet (30 mas needed for pain, Disp: , Rfl: TAXOTERE IV, None Entered, Disp: , Rfl: RESTASIS OPHT, ou tid, Disp: , Rfl: Dextran 70-Hypromellose (TEARS NATURALE) Ophthalmic Drops, None Entered, Disp: , Rfl: Prochlorperazine (COMPAZINE) 25 mg Rectal Suppository, Take 1 VT Q8-12hrs PRN nausea D2. R0 ., Disp: , Rfl: Lorazepam 1 mg Oral Tablet, Take 1 PO Q6-8hrs PRN nausea D20. R2., Disp: , Rfl: Atenolol 25 mg Oral Tablet, take 1 tablet (25 mg) by oral route once daily, Disp: , Rfl: Docusate Sodium (STOOL SOFTENER) 100 mg Oral Capsule, take 1 capsule (100 mg) by oral route once daily at bedtime as needed, Disp: , Rfl: Vitamin A-Vitamin C-Vit E-Min (ANTIOXIDANT FORMULA) Oral Capsule, take 1 capsule by oral ro hillary once daily with food, Disp: , Rfl: Glucosamine Sulfate 1,000 mg Oral Capsule, None Entered, Disp: , Rfl: VITAMINS-LIPOTROPICS OR, None Entered, Disp: , Rfl: PROTONIX 40 MG TAB, take 1 tablet (40mg) by oral route once daily, Disp: , Rfl: SPIRIVA WITH HANDIHALER 18 MCG & INHALATION CAPS, inhale the contents of one capsule (18mcg ) by inhalation route once daily, Disp: , Rfl: ETHMOZINE 200 MG TAB, take 1 tablet (200mg) by oral route every 8 hours, Disp: , Rfl: MULTIVITAMIN CAP, None Entered, Disp: , Rfl: PULMICORT 0.25 MG/2 ML INHL NEBU, , Disp: , Rfl: Living situation: environment is not limiting function: Equipment at home: recumbent bike Requests family members or friends involved with rehabilitation therapyhusband Anxieties or concerns about therapy: no Patient's Goals: Decrease pain and Decrease swelling. OBJECTIVE: Observations: Infection: There appears to be no visible sign of infection in the right upper quarter at t his time. Skin integrity: pink, well healed mastectomy and ax dissection scar Observable gross swelling: present in R arm, wrist to axilla, none on trunk. Edema is pitti ng. Sitting Posture: Mild slouched posture with forward head and rounded shoulders. Muscle atrophy: none Physical examination: Vitals: There were no vitals taken for this visit. Skin sensitivity is is decreased to light touch in the axilla. Incision mobility demonstrates mild adherence to chest wall and underlying fascia. Drain site incision: mild adherence to underlying fascia. Axillary incison mobility demonstrates mild adherence to chest wall and underlying fascia. Lymphatic cording: Mild in axilla and across elbow Circumference measurements: R L Mcp 18.2cm 18.4 Web space 18.8 18.7 Wrist 15.9 15.4 10cm 21.5 20.7 20cm 25.5 23.9 30cm 27.7 25.9 40cm 29.2 28.9 Elbow crease 25.0 23.7 Uninvolved shoulder ROM: wnl Uninvolved shoulder strength: wnl Involved shoulder ROM: -15 deg flex, abd, ER Involved shoulder strength: wnl TREATMENT TODAY: PT: Evaluation therapeutic activities. Pt was given a handout on complete decongestive therapy. Pt was instructed per handout and demonstrated lymphedema exercises. Pt and her were educated on and demonstrated MLD (manual lymph drainage) and scar tissue mobility. Both were instructed on bandaging techniqu e per handout, verbalized understanding. Pt's right arm was bandaged with fleece padding and short stretch compression bandages (6cm, 8cm and 10cm). Discussed garments recommendations and use. ASSESSMENT: Lauren Holman requires services that can be safely and effectively performed only by a qualified therapist to address the following problems and achieve the following goals: Problems: R upper extremity lymphedema, R lymphatic cording, decreased knowledge of lymphe cadence management, risk of infection in R arm Rehab Potential: Excellent Barriers to Rehab: pt lives several hours away. The closest lyphedema certified therapist michael ferreira I know of is in [place], [place] which is still 2 hrs from pt's home. Pt will be coming to [place] in November, and every 3 months for check ups. Treatment diagnosis: lymphedema 457.1 LONG-TERM GOALS, discussed with Laurenjudi in 12 weeks: 1. Pt will be independent with skin care and self-monitoring for infection prevention 2. Pt will be independent with self MLD for edema reduction 3. Pt will be independent with exercises for edema reduction with compression 4. Pt will be independent with bandaging for edema reduction 5. Pt will be independent with compression garment use for lymphedema management PLAN OF CARE: Manual therapy, therapeutic exercise, therapeutic activity Frequency/Duration: Up to 6 visits in the next 12 weeks Plan: pt to continue decongestive therapy at home. When edema is reduced, pt needs to be fi t for a compression garment (sleeve and hand piece) class 1 compression. Pt has my e-mail fo r questions. I will send her the name of the therapist in [place], follow up as needed fo r lymphedema management. Treatment began: 9:00 Treatment ended: 10:30 This note is to serve as the discharge summary if Lauren fails to attend further Physical Th erapy appointments or contact the therapist regarding any change in their status. KATTY CASTILLO PT [facility] AND HAND THERAPY [address] [facility], [address] [place] [phone] documented in this encount er Plan of Treatment + + +--------+ + + | Name | Type | Priori | Associated Diagnoses | Order Schedule | | | | ty | | | + + +--------+ + + | [facility] | Procedures | Routin | Lymphedema | Ordered: 11/01/2007 | | EVALUATION | | e | | | + + +--------+ + + | [facility] | Procedures | Routin | Lymphedema | Ordered: 11/01/2007 | | ACTIVITIES | | e | | | + + +--------+ + + documented as of this encounter Visit Diagnoses + + | Diagnosis | + + | Lymphedema - Primary Other lymphedema | + + documented in this encounter
--- OUTSIDE RECORDS SUMMARY | ~2020-05-04 | XMS | Encounter Summary ---
Demographics + + + | Address | [address] | | | [place] [address] | + + + | Home Phone [...] + | Gene Gee | ECON | [address] | | | | | [place], | | | | | [place] [address] | | + + + + + Care Team Providers + +------+ + | Care Affiliate Marketing Specialist Name | Role | Phone | + +------+ + | Antony Ribera MD | PCP | | + +------+ + Reason for Visit + +--------+ + | Reason | Onset | Comments | | | Date | | + +--------+ + | Refill Request | 02/03/ | | | | 2009 | | + +--------+ + Encounter Details +--------+--------+ + + + | Date | Type | Department | Care Team | Description | +--------+--------+ + + + | 02/03/ | Refill | Cardiology | Gary Fuentes MD | Refill Request | | 2009 | | Arrhythmia at [facility] | [address] | | | | | [address] | [address] [place], | | | | | [facility] | [place] [address] | | | | | and Healing, | [phone] | | | | | [facility] | | | | | | Floor [place], [place] | | | | | | [address] | | | | | | [phone] | | | +--------+--------+ + + + [...]
--- OUTSIDE RECORDS SUMMARY | ~2020-05-04 | XMS | Encounter Summary ---
Demographics + + + | Address | [address] | | | [place] [address] | + + + | Home Phone [...] + | Gene Gee | ECON | [address] | | | | | [place], | | | | | [place] [address] | | + + + + + Care Team Providers + +------+ + | Care Director Community Center Name | Role | Phone | + +------+ + | Antony Ribera MD | PCP | | + +------+ + Reason for Visit +---------+ + | Reason | Comments | +---------+ + | Post Op | op 10/04/12 R breast TE exchange [...] | | | | | | | [facility] | | | | | | | Health and | | | | | | | Healing, | | | | | | | Building [address], | | | | | | | 5th Floor | | | | | | | [place], [place] | | | | | | | [address] | | | | | | | Phone: | | | | | | | [phone] | +--------+--------+ + + + + Encounter Details +--------+---------+ + + + | Date | Type | Department | Care Team | Description | +--------+---------+ + + + | 10/24/ | Office | Plastic and | Santiago Hu, | Carcinoma in situ of | | 2012 | Visit | Reconstructive | PA-C [address] | breast (Primary | | | | Surgery at [facility] [address] | Dx); Acquired | | | | S [facility] | [address] [place], [place] | Absence of Breast | | | | for Health and | [id number] | | | | | Healing, [address], | | | | | | 5th Floor | | | | | | [place], [place] | | | | | | [address] | | | | | | [phone] | | | +--------+---------+ + + + [...] +---------+ + + | Blood Pressure | 123/74 | 10/24/2012 10:23 AM | | | | | PDT | | + +---------+ + + | Pulse | 69 | 10/24/2012 10:23 AM | | | | | PDT | | + +---------+ + + | Temperature | - | - | | + +---------+ + + | Respiratory Rate | 16 | 10/24/2012 10:23 AM | | | | | PDT | | + +---------+ + + | Oxygen Saturation | 100% | 10/24/2012 10:23 AM | | | | | PDT [...] this encounter Progress Notes Santiago Berumen - 10/24/2012 11:01 AM PDTPlastic and Reconstructive Surgery Follow-up History of Present Illness: Adriana Flynn is a 67 y.o. 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 She was seen last week for left breast swelling and which time Dr Gold had aspirated 50 ml ser becca. Has been wearing support bra and compressive wrap since. She reports that the swelling has improved somewhat, but she still has pain, especially in the superior portion of the kristian ast. She denies any redness, warmth, drainage or fevers. Physical Exam: Vitals: BP 123/74 | Pulse 69 | RR 16 | SpO2 100% General [...] Plan: Using sterile technique and ultrasound guidance, 30 cc of serosanguinous fluid was aspirate d. The fluid was dark in color. I believe this represents a resolving hematoma. Patient repo rted immediate relief of pain with procedure. No fluid noted on post-procedure ultrasound. W e will wrap the breasts to provide some compression over the next week. Follow up one month. We discussed plan for additional drainage if needed and if she had recurrence of fluid afte r that a consult to interventional radiology to place a drain. Regardless of her fluid colle ction, she does have significant swelling of the breast tissue on the left which is consiste nt with early post-operative change. It will take several months for this to subside and for her symmetry to improve. Santiago Hu PA-C Plastic/Reconstructive Surgery [facility] Electronically signed on 10/24/2012 at 11:01 AM SANTIAGO HU PA-C. 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
--- OUTSIDE RECORDS SUMMARY | ~2020-05-04 | XMS | Encounter Summary ---
Demographics + + + | Address | [address] | | | [place] [address] | + + + | Home Phone [...] + | Gene Gee | ECON | [address] | | | | | [place], | | | | | [place] [address] | | + + + + + Care Team Providers + +------+ + | Care Gusset Maker Name | Role | Phone | + +------+ + | Alec Hill MD | PCP | | + +------+ + Encounter Details +--------+ + + + + | Date | Type | Department | Care Team | Description | +--------+ + + + + | 06/12/ | Hospital | Registration [address] | [facility], | | | 2006 | Activity | [address] | [address] | | | | | [address] Mailcode: [id number] | [place], [place] | | | | | [place], [place] | [address] | | | | | [address] | [phone] | | | | | [phone] | | | +--------+ + + + [...]
--- OUTSIDE RECORDS SUMMARY | ~2020-05-04 | XMS | Encounter Summary ---
Demographics + + + | Address | [address] | | | [...] + | Gene Gee | ECON | [address] | | | | | [place], | | | | | [place] [address] | | + + + + + Care Team Providers + +------+ + | Care Church Business Administrator Name | Role | Phone | + +------+ + | Antony Ribera MD | PCP | | + +------+ + Encounter Details +--------+ + + + + | Date | Type | Department | Care Team | Description | +--------+ + + + + | 08/02/ | MyChart | Cardiology General | Elijah Whalen, | RE: Increased pulse | | 2018 | Encounter | at [facility] [address] | [address] | rate | | | | [facility] for | [facility] | | | | | Health and Healing, | [place], [place] | | | | | Building | [address] | | | | | Floor [place], [place] | [phone] | | | | | [address] | | | | | | [phone] | | | +--------+ + + + [...]
--- OUTSIDE RECORDS SUMMARY | ~2020-05-04 | XMS | Encounter Summary ---
Demographics + + + | Address | [address] | | | [place] [address] | + + + | Home Phone [...] + | Gene Gee | ECON | [address] | | | | | [place], | | | | | [place] [address] | | + + + + + Care Team Providers + +------+ + | Care Esthetician/Owner Name | Role | Phone | + +------+ + | Alec Hill MD | PCP | | + +------+ + Reason for Visit +--------+--------+ + | Reason | Onset | Comments | | | Date | | +--------+--------+ + | Other | 08/16/ | reclast IV | | | 2018 | | +--------+--------+ + Encounter Details +--------+ + + + + | Date | Type | Department | Care Team | Description | +--------+ + + + + | 08/16/ | Telephone | Rheumatology at | Rebecca Fatima, | Other (reclast IV) | | 2019 | | [facility] | [place] [address] | | | | | [address] | [facility] | | | | | [address] [facility] | [place], [place] | | | | | [address], [address]th Floor | [address] | | | | | [place], [place] | | | | | | [address] | | | | | | [phone] | | | +--------+ + + + [...] this encounter Miscellaneous Notes Telephone Encounter - Allison Kate RN - 08/16/2018 3:07 PM PSTI called and talked with Adriana. All questions answered. Allison Kate RN ele phone Encounter - Josh Moreland - 08/16/2018 12:36 PM PSTScheduled Pt for IV reclast on 08/17. Pt wanted to discuss with manager immunology how that line is placed. Says she has very diffic ult veins and requires a vein finder. Asks for call back at RN's convenience. Routing to [facility] senior director insight Pool documented in this encounter Plan of Treatment Not on filedocumented as of this encounter Visit Diagnoses Not on filedocumented in this encounter"
--- OUTSIDE RECORDS SUMMARY | ~2020-05-04 | XMS | Encounter Summary ---
Demographics + + + | Address | [address] | | | [place] [address] | + + + | Home Phone [...] + | Gene Gee | ECON | [address] | | | | | [place], | | | | | [place] [address] | | + + + + + Care Team Providers + +------+ + | Care Preservative Filler Machine Operator Name | Role | Phone | + +------+ + | Antony Ribera MD | PCP | | + +------+ + Encounter Details +--------+---------+ + + + | Date | Type | Department | Care Team | Description | +--------+---------+ + + + | 06/25/ | Office | Plastic and | Kelsi Lopez | Acquired Absence of | | 2011 | Visit | Reconstructive | MD Sduhir | Breast (Primary Dx) | | | | Surgery at [facility] [address] | | | | | [address] | | | | | | Mailcode: [facility] | | | | | | [facility] | | | | | | and Healing, | | | | | | Building | | | | | | Floor [place], [place] | | | | | | [address] | | | | | | [phone] | | | +--------+---------+ + + + [...] + + + | Blood Pressure | 124/63 | 06/25/2012 11:40 AM | | | | | PST | | + + + + + | Pulse | 59 | 06/25/2012 11:40 AM | | | | | PST | | + + + + + | Temperature | - | - | | + + + + + | Respiratory Rate | 18 | 06/25/2012 11:40 AM | | | | | PST | | + + + + + | Oxygen Saturation | 100% | 06/25/2012 11:40 AM | | | | | PST | | + + + + + | Inhaled Oxygen | - | - | | | Concentration | | | | + + + + + | Weight | 63.5 kg (140 lb) | 06/25/2012 11:40 AM | | | | | PST | | + + + + + | Height | 165.7 cm (5' 5.25") | 06/25/2012 11:40 AM | | | | | PST | | + + + + + | Body Mass Index | 23.12 | 06/25/2012 11:40 AM | | | | | PST | | + + + + + documented in this encounter Progress Notes Kelsi Lopez MD - 06/25/2012 8:51 AM PST Plastics Attending Note - Follow-Up Visit and Pre-Op for Right Breast Reconstruction with T issue Clinical Services Professional/[employer] Last seen 03/23/12. Pt had recent episode of W[place] virus and with vomiting and diarrhea harriett t into afib. This has since resolved. Her exam is unchanged from previous visit. She is in s inus rhythm. She has been cleared by the pre-op medicine clinic. We will put her on Lovenox postoperatively for DVT prophylaxis starting night of surgery. PARQ session held today and c onsent signed. I spent over 30 minutes with the patient today, and over 50% of it was couns eling. Plastics Attending Note 03/23/12 I saw and examined the patient and [...] will submit a surgery request to get ronda neff for surgery in July after I see a report of her mammogram. I spent over 30 minutes with the patient today, and over 50% of it was counseling. PLASTIC SURGERY CLINIC CONSULT NOTE AUTHOR: ASHLEY KING MD CONSULTING ATTENDING: Kelsi Lopez MD. REASON [...] once daily. fluticasone (FLONASE) 50 mcg/actuation Nasal Beasley, Suspension, Instill 1 Beasley into each n ostril two times daily. [...] 20 mg by mouth once d aily. tramadol (ULTRAM) 50 mg Oral Tablet, Take 1 Tab by mouth every six hours as needed for mode rate pain. Vitamin A-Vitamin C-Vit E-Min (ANTIOXIDANT FORMULA) Oral Capsule, take 1 capsule by oral ro ramona once daily with food VITAMIN D ORAL, [...] insurance pre-authorization paperwork for implantation of tissue assembler steam and gas turbine. She is schedule to have a r outine annual screening mammogram on July and she will schedule a pre-op appointment with our clinic later on the same day. ASHLEY KING MD [id number] 04/02/2012 2:21 PM documented in this encounter Miscellaneous Notes Scan - Ligia Faculty - 06/26/2012 9:11 AM PSTElectronically signed by Gisele Other at 9:11 AM PSTdocumented in this encounter Plan of Treatment Not on filedocumented as of this encounter Visit Diagnoses + + | Diagnosis | + + | Acquired Absence of Breast - Primary Acquired absence of breast and nipple | + + documented in this encounter
--- OUTSIDE RECORDS SUMMARY | ~2020-05-04 | XMS | Encounter Summary ---
Demographics + + + | Address | [address] | | | [place] [address] | + + + | Home Phone [...] + | Gene Gee | ECON | [address] | | | | | [place], | | | | | [place] [address] | | + + + + + Care Team Providers + +------+ + | Care Beet Flumer Name | Role | Phone | + +------+ + | Antony Ribera MD | PCP | | + +------+ + Encounter Details +--------+ + + + + | Date | Type | Department | Care Team | Description | +--------+ + + + + | 05/02/ | Hospital | [facility] | | | | 2011 | Encounter | Center at [facility] | | | | | | [facility] [address] | | | | | | [place], [address] [place] [address] | | | | | | [place], [place] | | | | | | [address] | | | | | | [phone] | | | +--------+ + + + [...] documented as of this encounter Miscellaneous Notes Larisa - Gisele Strong - 05/16/2012 1:28 PM PDTElectronically signed by Faculty Other at 1:28 PM PDTdocumented in this encounter Plan of Treatment Not on filedocumented as of this encounter Procedures + +--------+ + + + | Procedure Name | Priori | Date/Time | Associated Diagnosis | Comments | | | ty | | | | + +--------+ + + + | MA DIGITAL MAMMO | Routin | 05/02/2012 | Carcinoma in situ | Results for this | | DIAG LEFT | e | 2:56 PM | of breast Breast | procedure are in the | | | | PDT | cancer (HCC) | results section. | + +--------+ + + + documented in this encounter Results MA DIGITAL MAMMO DIAG LEFT (05/02/2012 2:56 PM PDT) + + + + + + | Component | Value | Ref Range | Performed | Pathologist | | | | | At | Signature | + + + + + + | DIG MAMMO | Patient History:Patient | | | | | DIAG LEFT | is postmenopausal and | | | | | | has history of breast | | | | | | cancer at age62.Family | | | | | | history of breast cancer | | | | | | in maternal cousin at | | | | | | age 65.Mastectomy of the | | | | | | right breast, March | | | | | | 2006.Last mammogram was | | | | | | performed 9 months | | | | | | ago.Reason for exam: | | | | | | history of breast | | | | | | cancer, mastectomy. | | | | | | 233.0Carcinoma in situ | | | | | | of breast~174.9 | | | | | | Malignant neoplasm of | | | | | | breast(female) MA | | | | | | DIGITAL MAMMO DIAG LEFT: | | | | | | May 02, 2012 - | | | | | | | | | | | | MLO, and XCCL view(s) | | | | | | were taken of the left | | | | | | breast.Prior study | | | | | | comparison: July 20, | | | | | | 2011, MA DIGITAL MAMMO | | | | | | DIAGLEFT w/CAD. | | | | | | June 30, 2010, MA | | | | | | DIGITAL MAMMO DIAG LEFT | | | | | | w/CAD.There are | | | | | | scattered fibroglandular | | | | | | densities. The | | | | | | patient isstatus post | | | | | | right mastectomy. No | | | | | | suspicious | | | | | | calcifications,masses, | | | | | | or architectural | | | | | | distortion present in | | | | | | the left breast. | | | | | | ASSESSMENT: Negative - | | | | | | Category 1 | | | | | | RECOMMENDATION:Routine | | | | | | screening mammogram of | | | | | | the left breast in 1 | | | | | | year. Attending | | | | | | Radiologists: Raymond Oliveira | | | | | | Declan CorbinAuthor: | | | | | | Raymond Corbin M.D. | | | | | | [...] | | | | | signed / Raymond Oliveira | | | | | | Emerald 05/02/2012 | | | | | | 15:04PM | | | | + + + [...] situ of breast | + + | Breast cancer (HCC) Malignant neoplasm of breast (female), unspecified site | + + documented in this encounter"
--- OUTSIDE RECORDS SUMMARY | ~2020-05-04 | XMS | Encounter Summary ---
Demographics + + + | Address | [address] | | | [place] [address] | + + + | Home Phone [...] + + | Author | [facility] | + + + | Organization | [facility] | + + + | Address | Unknown | + + + | Phone | Unavailable | + + + Support + + + + + | Name | Relationship | Address | Phone | + + + + + | Gene Gee | ECON | [address] | | | | | [place], | | | | | [place] [address] | | + + + + + Care Team Providers + +------+ + | Care Obstetrics Tech Name | Role | Phone | [...] | | 2008 | | Oncology at [facility] | MD Bradley [address] | | | | | [address] | [place], | | | | | Mailcode: CH7 | [place] [address] | | | | | [facility] | [phone] | | | | | and Healing, | | | | | | [facility] | | | | | | Floor [place], [place] | | | | | | [address] | | | | | | [phone] | | | +--------+ + + + [...] Encounter - Mireya Cruz Rn - 04/12/2009 2:45 PM PDTSpoke to patients husban d and let him know that I've routed the message to Dr. Campa. Asked if Dr. Campa can call patient on her cell phone at [phone]. Will send to elephone Encounter - Jenny Moody - 04/12 2:41 PM PDTPatient said she still has not heard from anyone regarding her earlier mes damon. Please call [phone] signed by Jenny Moody at 04/12/2009 2:41 PM PDTdocumented in this encounter Plan of Treatment Not on filedocumented as of this encounter Visit Diagnoses Not on filedocumented in this encounter"
--- OUTSIDE RECORDS SUMMARY | ~2020-05-04 | XMS | Encounter Summary ---
Demographics + + + | Address | [address] | | | [place] [address] | + + + | Home Phone [...] + | Gene Gee | ECON | [address] | | | | | [place], | | | | | [place] [address] | | + + + + + Care Team Providers + +------+ + | Care Pulverizer Tender Name | Role | Phone | + +------+ + | Antony Ribera MD | PCP | | + +------+ + Reason for Visit + +--------+ + | Reason | Onset | Comments | | | Date | | + +--------+ + | Chest pain | 09/06/ | | | | 2009 | | + +--------+ + Encounter Details +--------+ + + + + | Date | Type | Department | Care Team | Description | +--------+ + + + + | 09/06/ | Telephone | Cardiology General | Monique Middleton, | Chest pain | | 2009 | | at [facility] [address] | [facility] | | | | | [facility] | | | | | [facility] and Healing, | | | | | | Building [address], | | | | | | Floor [place], [place] | | | | | | [address] | | | | | | [phone] | | | +--------+ + + + [...] Telephone Encounter - Monique Fuller RN - 09/07/2009 5:36 PM PSTShe realizes that she bhakta d just started a new medication- kepidex (dexlansoprazole)- and when took it at a different time of day, her chest pain went away. She also wanted to report that she has also had jovan e hard heart beats, which are better on extra atenolol- which helps. She had severe muscle p ains and spasms on crestor- so her pcp told her to stop it- within a week, her pains went aw ay. Unfortunatley her cholesterol on crestor was 193 with LDL of LDL of 123. 3 weeks off c restor total chol was 248, with LDL 181. She is wondering what to try use next.Electronica llrenae signed by Monique Fuller RN at 09/07/2009 5:38 PM PSTTelephone Encounter - Monique Middleton Np - 09/06/2009 8:03 PM PSTCarol called because on Sunday night she had three episod es of chest pain. docume nted in this encounter Plan of Treatment Not on filedocumented as of this encounter Visit Diagnoses Not on filedocumented in this encounter"
--- OUTSIDE RECORDS SUMMARY | ~2020-05-04 | XMS | Encounter Summary ---
Demographics + + + | Address | [address] | | | [place] [address] | + + + | Home Phone [...] + | Gene Gee | ECON | [address] | | | | | [place], | | | | | [place] [address] | | + + + + + Care Team Providers + +------+ + | Care Limousine Rental Clerk Name | Role | Phone | [...] | Closed | | | | | [facility] [address] | | | | | | | Proced[facility]car | | | | | | | [address] | | | | | | | [place]reck Cruz | | | | | | | [address] | | | | | | | [facility] | | | | | | | [facility] | | | | | | | [place], [place] | | | | | | | [address] | | | | | | | Phone: | | | | | | | [phone] | | | | | | | Fax: | | | | | | | [phone] | +--------+--------+ + + + + Encounter Details +--------+ + + + + | Date | Type | Department | Care Team | Description | +--------+ + + + + | 09/17/ | Hospital | [facility] [address] | Silverio Fox | | | 2008 | Encounter | [address] | MD Denny [address] | | | | | [address] [facility] | [place], [place] | | | | | [place], [place] | [address] | | | | | [address] | [phone] | | | | | [phone] | | | +--------+ + + + [...] + + + | Blood Pressure | 108/49 | 09/17/2008 7:18 PM | | | | | PST | | + + + + + | Pulse | 85 | 09/17/2008 7:18 PM | | | | | PST | | + + + + + | Temperature | 36.6 C (97.9 F) | 09/17/2008 11:37 AM | | | | | PST | | + + + + + | Respiratory Rate | 17 | 09/17/2008 7:18 PM | | | | | PST | | + + + + + | Oxygen Saturation | 98% | 09/17/2008 7:18 PM | | | | | PST | | + + + + + | Inhaled Oxygen | - | - | | | Concentration | | | | + + + + + | Weight | 63.5 kg (140 lb) | 09/17/2008 11:37 AM | | | | | PST | | + + + + + | Height | 167.6 cm (5' 6") | 09/17/2008 11:37 AM | | | | | PST | | + + + + + | Body Mass Index | 22.6 | 09/17/2008 11:37 AM | | | | | PST | | + + + + + documented in this encounter Discharge Instructions Rosaline Nicole - 09/17/2008Discharge instructions regarding site care, diet ,activity, emergency signs, symptoms and contact numbers given to and reviewed with patient and patients . Patient taking PO without nausea, vomiting, denies pain and is witho ut s/s of distress. R IJ site CDI upon discharge. Patient discharged home with at this time. documented in this encounter Medications at Time [...] documented as of this encounter Progress Notes Lynn Ortiz MD - 09/17/2008 7:09 PM PSTINTERVENTIONAL CARDIOLOGY POST CATH NOTE Attending Physician: Ruddy Assisting Physician: Angel Procedures: RHC Access: 8Fr R IJ Findings: Normal CO (therm 5.40), Normal filling pressures, PA 25/5, PCW 5. No Flolan tri al done given normal outputs and lack of pulmonary hypertension Complications: None EBL: <5 cc's Dispo: HOME Staff: Ruddy Please see full dictated note to follow Lynn Ortiz MD Fellow Cardiovascular Medicine documented in this en counter Procedure Notes Other, Faculty - 05/23/2010 7:42 PM PST ther, Faculty - 009 7:54 PM PSTAssociated Order(s): CARDIOLOGY; CARDIOLOGY Other, Faculty - 09/17/2008 7: 54 PM PST Other, Faculty - 09/17/2008 7:54 PM PST Other, Faculty - 09/17/2008 7:54 PM PS TAssociated Order(s): CARDIOLOGY; CARDIOLOGY documented in this encounter Miscellaneous Notes Scan - Other, Faculty - 09/17/2008 7:54 PM PST Scan - Other, 09/17/2008 7:54 PM PST Scan - Other, Faculty - 09/17/2008 7:54 PM PST Scan - Other, Faculty - 09/17/2008 7:54 PM PST documented in this encounter Plan of Treatment Not on filedocumented as of this encounter Procedures + +--------+ + + + | Procedure Name | Priori | Date/Time | Associated Diagnosis | Comments | | | ty | | | | + +--------+ + + + | CARDIOLOGY | | 09/17/2008 | | Results for this | | | | 7:54 PM | | procedure are in the | | | | PST | | results section. | + +--------+ + + + | CARDIOLOGY | | 09/17/2008 | | Results for this | | | | 7:54 PM | | procedure are in the | | | | PST | | results section. | + +--------+ + + + documented in this encounter Results CARDIOLOGY (09/17/2008 7:54 PM PST) + + + | Narrative | Performed At | + + + | | | + + + + + | Procedure Note | + + | Gisele Strong - 09/17/2008 7:54 PM PST | + + CARDIOLOGY (09/17/2008 7:54 PM PST) + + + | Narrative | Performed At | + + + | | | + + + + + | Procedure Note | + + | Gisele Strong - 09/17/2008 7:54 PM PST | + + documented in this encounter Visit Diagnoses + + | Diagnosis | + + | Pulmonary hypertension (HCC) Other chronic pulmonary heart diseases | + + | Dyspnea Other dyspnea and respiratory abnormality | + + documented in this encounter Administered Medications + +---------+ +------+-------+------+ | Medication Order | MAR | Action | Dose | Rate | Site | | | Action | Date | | | | + +---------+ +------+-------+------+ | NaCl 0.9 % IV intravenous, | New Bag | 09/18/19 | | 100 | | | CONTINUOUS, Starting [place] 09/17/08 | | 09 11:37 | | mL/hr | | | at 1145, Until Sun09/18/08 at 0155 | | AM PST | | | | + +---------+ +------+-------+------+ +---+---+ | | | +---+---+ documented in this encounter
--- OUTSIDE RECORDS SUMMARY | ~2020-05-04 | XMS | Encounter Summary ---
Demographics + + + | Address | [address] | | | [place] [address] | + + + | Home Phone [...] + | Gene Gee | ECON | [address] | | | | | [place], | | | | | [place] [address] | | + + + + + Care Team Providers + +------+ + | Care Phonograph Needle Tip Maker Name | Role | Phone | + +------+ + | Antony Ribera MD | PCP | | + +------+ + Encounter Details +--------+ + + + + | Date | Type | Department | Care Team | Description | +--------+ + + + + | 01/15/ | MyChart | Cardiology | Elijah Whalen, | Event monitor I | | 2017 | Encounter | Arrhythmia at [facility] | [address] | ordered | | | | [address] | [address] | | | | | [facility] | [place], [place] | | | | | and Healing, | [address] | | | | | [place] [address] [facility] | [phone] | | | | | Floor [place], [place] | | | | | | [address] | | | | | | [phone] | | | +--------+ + + + [...]
--- OUTSIDE RECORDS SUMMARY | ~2020-05-04 | XMS | Encounter Summary ---
Demographics + + + | Address | [address] | | | [place] [address] | + + + | Home Phone [...] + | Gene Gee | ECON | [address] | | | | | [place], | | | | | [place] [address] | | + + + + + Care Team Providers + +------+ + | Care Cupola Operator Name | Role | Phone | + +------+ + | Antony Ribera MD | PCP | | + +------+ + Reason for Visit + + + | Reason | Comments | + + + | Refill Request | [facility] [address] | + + + Encounter Details +--------+--------+ + + + | Date | Type | Department | Care Team | Description | +--------+--------+ + + + | 06/18/ | Refill | Pulmonary & | Dez Hansen, | Refill Request | | 2017 | | Critical Care | ,PhD [address] [facility] | ([facility] | | | | Medicine at | [facility] [address] | [address]) | | | | [facility] | [place], [place] | | | | | [address] | [address] | | | | | [address] [facility] | [phone] | | | | | [place], [address] [place] [address] | | | | | | [place], [place] | | | | | | [address] | | | | | | [phone] | | | +--------+--------+ + + + [...] this encounter Miscellaneous Notes Telephone Encounter - Rosa Souza MA - 06/18/2017 10:53 AM PST REFILL REQUEST DATE: June 18, 2017 PATIENT: Adriana Flynn [id number] MESSAGE: Received refill request from pharmacy. Requested Prescriptions Pending Prescriptions Disp Refills PULMICORT FLEXHALER 180 mcg/actuation inhalation aerosol powdr breath activated [Pharma cy Med Name: PULMICORT FLEXHALER [address]EP[address]] 6 Sig: INHALE THREE PUFFS BY MOUTH TWICE A DAY LAST APPOINTMENT: 05/16/17 at 3:05 pm NEXT APPOINTMENT: 10/24/17 at 11:00 am Patient's pharmacy has been verified: Yes [id number] [id number] documented in this en counter Plan of Treatment Not on filedocumented as of this encounter Visit Diagnoses Not on filedocumented in this encounter"
--- OUTSIDE RECORDS SUMMARY | ~2020-05-04 | XMS | Encounter Summary ---
Demographics + + + | Address | [address] | | | [place] [address] | + + + | Home Phone [...] + | Gene Gee | ECON | [address] | | | | | [place], | | | | | [place] [address] | | + + + + + Care Team Providers + +------+ + | Care Lead Network Engineer Name | Role | Phone | [...] Description | +--------+---------+ + + + | 11/01/ | Office | Hematology/Medical | Shukri, | Carcinoma in situ of | | 2011 | Visit | Oncology at [facility] | Leydi Alfredo MD | breast; Breast | | | | [address] | | cancer (HCC) | | | | Mailcode: CH7M | | | | | | [facility] | | | | | | and Healing, | | | | | | Building | | | | | | Floor [place], [place] | | | | | | [address] | | | | | | [phone] | | | +--------+---------+ + + + [...] + + + | Blood Pressure | 142/82 | 05/16/2012 11:29 AM | | | | | PDT | | + + + + + | Pulse | 61 | 05/16/2012 11:29 AM | | | | | PDT | | + + + + + | Temperature | 36.7 C (98 F) | 05/16/2012 11:29 AM | | | | | PDT | | + + + + + | Respiratory Rate | 14 | 05/16/2012 11:29 AM | | | | | PDT | | + + + + + | Oxygen Saturation | 100% | 05/16/2012 11:29 AM | | | | | PDT | | + + + + + | Inhaled Oxygen | - | - | | | Concentration | | | | + + + + + | Weight | 62.9 kg (138 lb 9.6 | 05/16/2012 11:29 AM | | | | oz) | PDT | | + + + + + | Height | - | - | | + + + + + | Body Mass Index | 22.37 | 05/03/2012 9:59 AM | | | | | PDT | | + + + + + documented in this encounter Progress Notes Leydi Watt MD - 05/16/2012 11:44 AM [facility] Provider: Leydi Watt MD DATE: 05/16/2012 Adriana Flynn ([id number]) is a 66 year old female here today to establish care with medical oncology, he was previously followed by Dr. Daniel Velazquez. 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 She has been on Arimidex since Aug 2007. ECOG PERFORMANCE STATUS: Zero INTERIM HISTORY: Ms. Flynn is about to complete 5 years of hormonal therapy in August of 2012. She report s hot flashes, intermittent. She has bone and joint aches and pains that predate her breast cancer diagnosis (and have been attributed to fibromyalgia). She is active and exercises d aily. She is planning to undergo breast reconstruction in the near future. She is being fo llowed by endocrinology for osteopenia and is receiving yearly zometa. REVIEW OF SYSTEMS: General: No constitutional symptoms of fevers, fatigue, chills, weight loss or sweats. Eyes: No changes in vision, double vision, eye pain, eye irritation, discharge, blurred vi el or light sensitivity. Ears, Nose and Throat: No hearing loss, ringing in the ears, ear discharge, earache, noseb danielito, nasal congestion, difficulty swallowing, hoarseness or sore throat. Respiratory: No shortness of breath, coughing up blood, excessive sputum, cough, chest dis comfort or wheezing. Musculoskeletal: No joint pain, swelling, stiffness, back pain, arthritis, muscle aches, m uscle cramps or loss of strength. Cardiovascular: No chest pain, skipping beats, lightheadedness, difficulty breathing uprig ht or lying down, fatigue, near fainting or fainting, palpitations, weight gain, edema, leg cramps. Gastrointestinal: No loss of appetite, excessive appetite, indigestion, vomiting, nausea, constipation, gas, abdominal pain, hemorrhoids, diarrhea, bloating, bloody stools or dark ta rry stools. Genitourinary: No urinary frequency, blood in urine, difficulty in urination, discharge, p ainful urination, incontinence, urinary urgency or genital sores. Neurologic: No unusual headaches, inability to speak, poor balance, numbness, tingling, tr emors, memory loss, disturbances in coordination or sensation of room spinning. Skin: No itching, rash, poor wound healing, night sweats, changes in skin color, dryness, flushing or suspicious lesions. (+) bony aches and pains PHYSICAL EXAMINATION: General: Awake, oriented x3, not in acute distress BP 142/82 | Pulse 61 | Temp (Src) 36.7 C (98 F) (Oral) | RR 14 | Wt 62.869 kg (138 lb 9 .6 oz) | SpO2 100% HEENT: moist oral mucosa, no mucositis, no thrush, no palpable cervical LAD, full neck ROM BREAST: R breast surgically absent, L breast free of masses or skin changes, no axillary ad enopathy bilaterally, no lymphedema R arm CHEST: clear to ausculatation bilaterally HEART: RRR ABDOMEN: soft, nontender, good bowel sounds EXT: no edema PERTINENT LABS: None today IMAGING: None today ASSESSMENT AND PLAN: I have reviewed her history, her pathology reports, her imaging studies, I have verified th michaelle with the patient. We discussed the benefit and rationale of hormonal therapy following surgery and adjuvant c hemotherapy. I have recommended that she continue until August of 2012. I will see her yearly after this appointment. We discussed the need for continued mammogra phic screening of the contralateral breast. She will continue follow up with endocrinology, where her bone mineral density is being followed. LEYDI WATT MD documented in t his encounter Plan of Treatment Not on filedocumented as of this encounter Visit Diagnoses + + | Diagnosis | + + | Carcinoma in situ of breast | + + | Breast cancer (HCC) Malignant neoplasm of breast (female), unspecified site | + + documented in this encounter"
--- OUTSIDE RECORDS SUMMARY | ~2020-05-04 | XMS | Encounter Summary ---
Demographics + + + | Address | [address] | | | [place] [address] | + + + | Home Phone [...] + | Gene Gee | ECON | [address] | | | | | [place], | | | | | [place] [address] | | + + + + + Care Team Providers + +------+ + | Care Manager Sound Name | Role | Phone | + +------+ + | Alec Hill MD | PCP | | + +------+ + Encounter Details +--------+ + + + + | Date | Type | Department | Care Team | Description | +--------+ + + + + | 09/09/ | Drain Cleaner Plumber | Pulmonary & | Ruth Hernandez, | | | 2008 | | Critical Care | | | | | | Medicine at | | | | | | [facility] | | | | | | [address] | | | | | | Loop [facility] | | | | | | Pavilion, 3rd Floor | | | | | | [place], [place] | | | | | | [address] | | | | | | [phone] | | | +--------+ + + + [...]
--- OUTSIDE RECORDS SUMMARY | ~2020-05-04 | XMS | Encounter Summary ---
Demographics + + + | Address | [address] | | | [place] [address] | + + + | Home Phone [...] + | Gene Gee | ECON | [address] | | | | | [place], | | | | | [place] [address] | | + + + + + Care Team Providers + +------+ + | Care Software Administrator Name | Role | Phone | [...] | +--------+ + + + + | 06/10/ | Documentati | John Rudolph | Tapan Horowitz MD | Lab Results | | 2012 | on | [facility] | [address] [facility] | | | | | [facility] | [address] [place], | | | | | [address] | [place] [address] | | | | | [address] | [phone] | | | | | Physician's | | | | | | Pavilion, [facility] floor | | | | | | [place], [place] | | | | | | [address] | | | | | | [phone] | | | +--------+ + + + [...]
--- OUTSIDE RECORDS SUMMARY | ~2020-05-04 | XMS | Encounter Summary ---
Demographics + + + | Address | [address] | | | [place] [address] | + + + | Home Phone [...] + | Gene Gee | ECON | [address] | | | | | [place], | | | | | [place] [address] | | + + + + + Care Team Providers + +------+ + | Care Sample Carrier Name | Role | Phone | + +------+ + | Antony Ribera MD | PCP | | + +------+ + Encounter Details +--------+ + + + + | Date | Type | Department | Care Team | Description | +--------+ + + + + | 09/07/ | Cdl Service Technician | Pulmonary & | Ruth Hernandez, | Dyspnea; Pulmonary | | 2008 | | Critical Care | | Hypertension (HCC) | | | | Medicine at | | | | | | [facility] | | | | | | [address] | | | | | | [facility] | | | | | | [facility], 3rd Floor | | | | | | [place], [place] | | | | | | [address] | | | | | | [phone] | | | +--------+ + + + [...] of this encounter Plan of Treatment + + +--------+ + + | Name | Type | Priori | Associated Diagnoses | Order Schedule | | | | ty | | | + + +--------+ + + | O2 SATURATION MULT | Pulmonary | Routin | Dyspnea Pulmonary | Ordered: 09/07/2008 | | DTRM (6 MIN WALK), | Function | e | Hypertension (HCC) | | | PULM FUNCTION LAB | | | | | + + +--------+ + + | CO DIFFUSION | Pulmonary | Routin | Dyspnea Pulmonary | Ordered: 09/07/2008 | | CAPACITY(DLCO), PULM | Function | e | Hypertension (HCC) | | | FUNCTION LAB | | | | | + + +--------+ + + | HEMOGLOBIN, PULM | Lab | Routin | Dyspnea Pulmonary | Ordered: 09/07/2008 | | FUNCTION LAB ONLY | | e | Hypertension (HCC) | | + + +--------+ + + | LUNG VOLUMES / BODY | Pulmonary | Routin | Dyspnea Pulmonary | Ordered: 09/07/2008 | | BOXTIMA FUNCTION | Function | e | Hypertension (HCC) | | | LAB | | | | | + + +--------+ + + | SPIROMETRY BEFORE / | Procedures | Routin | Dyspnea Pulmonary | Ordered: 09/07/2008 | | AFTER BRONCHODIL, | | e | Hypertension (HCC) | | | PULM FUNCTION LAB | | | | | + + +--------+ + + documented as of this encounter Visit Diagnoses + + | Diagnosis | + + | Dyspnea Other dyspnea and respiratory abnormality | + + | Pulmonary hypertension (HCC) Other chronic pulmonary heart diseases | + + documented in this encounter"
--- OUTSIDE RECORDS SUMMARY | ~2020-05-04 | XMS | Encounter Summary ---
Demographics + + + | Address | [address] | | | [place] [address] | + + + | Home Phone [...] + | Gene Gee | ECON | [address] | | | | | [place], | | | | | [place] [address] | | + + + + + Care Team Providers + +------+ + | Care Geoscience Specialist Name | Role | Phone | + +------+ + | Antony Ribera MD | PCP | | + +------+ + Encounter Details +--------+ + + + + | Date | Type | Department | Care Team | Description | +--------+ + + + + | 11/15/ | Abstract | Cardiology | Elijah Whalen, | | | 2017 | | Arrhythmia at [facility] | [address] | | | | | [address] | [address] | | | | | [facility] | [place], [place] | | | | | and Healing, | [address] | | | | | [facility] | [phone] | | | | | Floor [place], [place] | | | | | | [address] | | | | | | [phone] | | | +--------+ + + + [...]
--- OUTSIDE RECORDS SUMMARY | ~2020-05-04 | XMS | Encounter Summary ---
Demographics + + + | Address | [address] | | | [place] [address] | + + + | Home Phone [...] + | Gene Gee | ECON | [address] | | | | | [place], | | | | | [place] [address] | | + + + + + Care Team Providers + +------+ + | Care Office Professionals Name | Role | Phone | + +------+ + | Antony Ribera MD | PCP | | + +------+ + Reason for Visit + + + | Reason | Comments | + + + | Follow-up visit | | + + + Consultation (Routine) +--------+--------+ + + + + | Status | Reason | Specialty | Diagnoses / | Referred By | Referred To | | | | | Procedures | Contact | Contact | +--------+--------+ + + + + | Closed | | Gastroenterol | Diagnoses | Tr[place]ble, | Gas Endo | | | | ogy | Other | MD Navin | [facility] [address] | | | | | pulmonary | [address] | | | | | embolism and | [place] | Story | | | | | infarction | Rd | Pavilion, [address]th | | | | | Procedures | [place], [place] | floor | | | | | CONSULT TO | [address] | [place], [place] | | | | | GI PROCEDURE | Phone: | [phone] | | | | | UNIT: | [phone] | Phone: | | | | | COLONOSCOPY | Fax: | [phone] | | | | | | [phone] | Fax: | | | | | | | [phone] | +--------+--------+ + + + + Encounter Details +--------+---------+ + + + | Date | Type | Department | Care Team | Description | +--------+---------+ + + + | 06/01/ | Office | Digestive Health | Jason, | Nausea with vomiting | | 2009 | Visit | Center at [facility] [address] | Sheila Garcia MD | (Primary Dx) | | | | [address] | [address] | | | | | for Health and | [place], [place] | | | | | [facility], [facility] [address] | [address] | | | | | [place], [place] | [phone] | | | | | [address] | | | | | | [phone] | | | +--------+---------+ + + + [...] + + + | Blood Pressure | 138/74 | 06/01/2010 10:36 AM | | | | | PST | | + + + + + | Pulse | 71 | 06/01/2010 10:36 AM | | | | | PST | | + + + + + | Temperature | 35.7 C (96.2 F) | 06/01/2010 10:36 AM | | | | | PST | | + + + + + | Respiratory Rate | 16 | 06/01/2010 10:36 AM | | | | | PST | | + + + + + | Oxygen Saturation | - | - | | + + + + + | Inhaled Oxygen | - | - | | | Concentration | | | | + + + + + | Weight | 67.1 kg (147 lb 14.4 | 06/01/2010 10:36 AM | | | | oz) | PST | | + + + + + | Height | 167.6 cm (5' 6") | 06/01/2010 10:36 AM | | | | | PST | | + + + + + | Body Mass Index | 23.87 | 06/01/2010 10:36 AM | | | | | PST | | + + + + + documented in this encounter Progress Notes Sheila Gomez MD - 06/01/2010 11:38 AM PSTFormatting of this note might be differ ent from the original. [facility] Patient Name: Adriana Flynn MR#: [id number] : 1945 Adriana Flynn is a very pleasant 64 year old female , a patient of who was seen pre viously in the clinic presents for follow up . I pasted the previous note for continuity sak GENERAL GASTROENTEROLOGY CLINIC FOLLOW UP Adriana Flynn is an 64 y.o. female, who returns for evaluation and management of GERD. PMH signficant h/o breast cancer 2.5 years ago, Sjogren's syndrome, multiple abdominal surgeries , and consultation by me in 05/2008 for recurrent SBOs. Patient reports that she has not had an SBO since, but presents with her [...] and motility testing by Dr. Frias in [place] ~10 years ago--was told h er had [...] budesonide (PULMICORT FLEXHALER) 180 mcg/Inhalation Inhalation Aerosol [facility] Breath Activat ed, Inhale 1 Puff two [...] Rfl: 6 fluticasone (FLONASE) 50 mcg/Actuation Nasal [place], Suspension, Instill 2 Sprays into each nostril [...] Intravenous Solution, Inject into the vein (IV). Year ly- rcvd 01/19/09 , Disp: , Rfl: Allergies Allergen Reactions Sulfa (Sulfonamides) Swelling-Facial Ciprofloxacin Hives and Rash Triamterene-hydrochlorothiazid BREAST LUMPS Celebrex (Celecoxib) Diarrhea and Cough Albuterol Tachycardia Flecainide Acetate Rash Intestinal discomfort Propafenone unknown Crestor (Rosuvastatin Calcium) muscle/Jt Pain Zetia (Ezetimibe) Nausea/Vomiting Tape Adherent Rash . At this point she is doing well except for a couple of episodes of small bowel obstruction which she was told Were secondary to adhesions.almost always resolves in 3 days . The last two episodes she managed conservatively --she switched to liquid diet and felt better in 2- 3 days . She has suffered from constipation and is taking Miralax that has prescribe d previously and is having 3 mushy bowel movements per day .Wondering if they were normal. S ome one who did a mobile ultrasound in [place] and told her that she had stool in colon. .She does not have any abdominal pain.has good appetite, has good understanding of her cond ition (adhesions- recurrent partial SBO ), has concerns about dependence on Miralax and Gerd symptoms are well controlled on twice daily Past Medical History Diagnosis Date Sjogrens syndrome [...] Breast cancer 02/2007 s/p chemo with taxotere/cytoxan Past Surgical History Procedure Date Ectopic age [...] [facility] Heart ablation 12/16/2004,09/21/2005 Dr. Fuentes, [facility] Current outpatient prescriptions Medication Sig anastrozole (ARIMIDEX) [...] times daily. fluticasone (FLONASE) 50 mcg/Actuation Nasal [place], Suspension Instill 2 Sprays into ea ch [...] days af ter injection Tape Adherent Rash Review of Systems Constitutional: Negative for fever, chills, weight loss, malaise/fatigue and diaphoresis. HENT: Negative. Eyes: Negative. Respiratory: Positive for shortness of breath. Cardiovascular: Negative. Gastrointestinal: Positive for heartburn, nausea, vomiting, abdominal pain and constipation . All these symptoms occur " when she has episodes of SBO" Genitourinary: Negative. Musculoskeletal: Positive for joint pain. Skin: Negative for rash and itching. Neurological: Negative. Negative for weakness. Endo/Heme/Allergies: Negative. Psychiatric/Behavioral: Negative. Physical Exam Constitutional: She is oriented to person, place, and time and well-developed, well-nourish ed, and in no distress. HENT: Head: Normocephalic and atraumatic. Eyes: Conjunctivae are normal. Pupils are equal, round, and reactive to light. Neck: Normal range of motion. Neck supple. Cardiovascular: Normal rate, regular rhythm and normal heart sounds. Pulmonary/Chest: Effort normal and breath sounds normal. Abdominal: Soft. Bowel sounds are normal. Musculoskeletal: Normal range of motion. Neurological: She is alert and oriented to person, place, and time. Gait normal. GCS score is 15. Skin: Skin is warm and dry. Psychiatric: Mood, memory, affect and judgment normal. A/P:. Adriana At present does not haveany abdominal pain.has good appetite, has good underst anding of her condition (adhesions- recurrent partial SBO ), has concerns about dependence o n Miralax and Gerd symptoms are well controlled on twice daily. Reassured her about Safety profile of Miralax , we discussed in length about recognizing an attack of SBO and the need to seek medical attention if they occur documented in this encounter Plan of Treatment Not on filedocumented as of this encounter Visit Diagnoses + + | Diagnosis | + + | Nausea with vomiting - Primary | + + documented in this encounter
--- OUTSIDE RECORDS SUMMARY | ~2020-05-04 | XMS | Encounter Summary ---
Demographics + + + | Address | [address] | | | [place] [address] | + + + | Home Phone [...] + | Gene Gee | ECON | [address] | | | | | [place], | | | | | [place] [address] | | + + + + + Care Team Providers + +------+ + | Care Director Of Perioperative Services Name | Role | Phone | + +------+ + | Alec Hill MD | PCP | | + +------+ + Encounter Details +--------+ + + + + | Date | Type | Department | Care Team | Description | +--------+ + + + + | 10/10/ | Ancillary | Registration [id number] | Gary Fuentes MD | | | 2004 | Registratio | [facility] | [address] | | | | [address] | [address] Mailcode: RPB07 | [address], | | | | | [place], [place] | [place] [address] | | | | | [address] | [phone] | | | | | [phone] | | | +--------+ + + + [...]
--- OUTSIDE RECORDS SUMMARY | ~2020-05-04 | XMS | Encounter Summary ---
Demographics + + + | Address | [address] | | | [place] [address] | + + + | Home Phone [...] + | Gene Gee | ECON | [address] | | | | | [place], | | | | | [place] [address] | | + + + + + Care Team Providers + +------+ + | Care Employment Clerk Name | Role | Phone | + +------+ + | Antony Ribera MD | PCP | | + +------+ + Encounter Details +--------+ + + + + | Date | Type | Department | Care Team | Description | +--------+ + + + + | 05/23/ | Abstract | Cardiology | Monique Middleton, | | | 2012 | | Arrhythmia at [facility] | [employer]ULT [employer] | | | | | [address] | | | | | | [place] for [facility] | | | | | | and Healing, | | | | | | Building | | | | | | Floor [place], [place] | | | | | | [address] | | | | | | [phone] | | | +--------+ + + + [...]
--- OUTSIDE RECORDS SUMMARY | ~2020-05-04 | XMS | Encounter Summary ---
Demographics + + + | Address | [address] | | | [place] [address] | + + + | Home Phone [...] + | Gene Gee | ECON | [address] | | | | | [place], | | | | | [place] [address] | | + + + + + Care Team Providers + +------+ + | Care District Fire Chief Name | Role | Phone | + +------+ + | Antony Ribera MD | PCP | | + +------+ + Encounter Details +--------+ + + + + | Date | Type | Department | Care Team | Description | +--------+ + + + + | 11/24/ | Abstract | Cardiology | Gary Fuentes MD | | | 2015 | | Arrhythmia at [facility] | [address] | | | | | [address] | [address] [place], | | | | | [facility] | [place] [address] | | | | | and Healing, | [phone] | | | | | | | | | | | Floor [place], [place] | | | | | | [address] | | | | | | [phone] | | | +--------+ + + + [...]
--- OUTSIDE RECORDS SUMMARY | ~2020-05-04 | XMS | Encounter Summary ---
Demographics + + + | Address | [address] | | | [place] [address] | + + + | Home Phone [...] + | Gene Gee | ECON | [address] | | | | | [place], | | | | | [place] [address] | | + + + + + Care Team Providers + +------+ + | Care Anatomic Pathologist Name | Role | Phone | + +------+ + | Alec Hill MD | PCP | | + +------+ + Encounter Details +--------+ + + + + | Date | Type | Department | Care Team | Description | +--------+ + + + + | 08/24/ | Hospital | Registration [id number] | Bob Reyna MD | | | 2005 | Activity | [address] [facility] | [address] | | | | | [place] Mailcode: RPB07 | [place], [place] | | | | | [place], [place] | [address] | | | | | [address] | [phone] | | | | | [phone] | | | +--------+ + + + [...] + | SURGICAL PATHOLOGY | Routin | 08/24/2005 | | Results for this | | | e | | | procedure are in the | | | | | | results section. | + +--------+ + + + documented in this encounter Results SURGICAL PATHOLOGY (08/24/2005) + + + + + + | Component | Value | Ref Range | Performed | Pathologist | | | | | At | Signature | + + + + + + | SURGICAL | SOURCE OF SPECIMEN:A | | [facility] | | | PATHOLOGY | Duodenum Final | | DEPARTMENT | | | | Pathologic | | OF | | | | Diagnosis:Duodenum, | | PATHOLOGY | | | | biopsy: - Duodenal | | | | | | mucosa with increased | | | | | | numbers of | | | | | | intraepitheliallymphocyt | | | | | | es, see comment Comment: | | | | | | CD20, CD3, CD4 and CD8 | | | | | | stains were performed to | | | | | | characterize | | | | | | thelymphocyte | | | | | | population. A CD20 stain | | | | | | shows a few areas of | | | | | | B-cell aggregatesand | | | | | | rare scattered | | | | | | individual B-cells. CD3 | | | | | | stain highlights | | | | | | numerousT-cells present | | | | | | in the lamina propria, | | | | | | in immediate | | | | | | subepithelial | | | | | | location,and also in | | | | | | significant numbers in | | | | | | intraepithelial | | | | | | localization. The | | | | | | laminapropria T-cells | | | | | | are predominately CD4+, | | | | | | while the | | | | | | intraepithelial | | | | | | andsubepithelial | | | | | | T-lymphocytes are | | | | | | predominately CD8+. This | | | | | | pattern of CD4 andCD8 | | | | | | distribution can be seen | | | | | | in celiac disease. | | | | | | Other features seen | | | | | | inceliac disease, such | | | | | | as villous blunting and | | | | | | a dense inflammatory | | | | | | cellinfiltrate in the | | | | | | lamina propria, are not | | | | | | present. Celiac disease | | | | | | withnormal villous | | | | | | morphology is amongst | | | | | | the differential | | | | | | diagnosticpossibilities. | | | | | | Other disease states | | | | | | characterized by | | | | | | increasedintraepithelial | | | | | | lymphocytes include | | | | | | systemic autoimmune | | | | | | states, other | | | | | | foodallergies, | | | | | | autoimmune enteropathy, | | | | | | and possibly | | | | | | nonsteroidalantiinflamma | | | | | | tory drugs, amongst many | | | | | | others. Correlation | | | | | | with laboratorytesting | | | | | | (possibly with a panel | | | | | | including anti-tissue | | | | | | transglutaminase,antiend | | | | | | omysial and antigliadin | | | | | | antibody tests) may be | | | | | | helpful. (Analyte | | | | | | specific reagents are | | | | | | used in many laboratory | | | | | | tests necessary | | | | | | [facility] | | | | | | and generally do not | | | | | | require FDA approval. | | | | | | This testwas developed | | | | | | [...] | | | | | | DrugAdministration.) | | | | | | Case reviewed by:Raymond | | | | | | Declan Maxwell/Pathology | | | | | | Keny Gao, | | | | | | MEli /PathologistT: | | | | | | 08/25/05:[facility] I have | | | | | | reviewed all diagnostic | | | | | | slides and have edited | | | | | | the gross | | | | | | and/ormicroscopic | | | | | | portion of this report | | | | | | as part of my pathologic | | | | | | assessment andfinal | | | | | | diagnosis. Clinical | | | | | | History:The patient is a | | | | | | 59-year-old female with | | | | | | scalloped, flat mucosa. | | | | | | Rule outsprue.Per LCR | | | | | | Web: Abdominal pain and | | | | | | gastroesophageal reflux | | | | | | disease Gross | | | | | | Description:One specimen | | | | | | is received in formalin | | | | | | labeled "duodenum." | | | | | | Received are | | | | | | fourfragments of evangelista, | | | | | | soft tissue, measuring | | | | | | 1.0 x 0.3 x 0.2 cm in | | | | | | aggregate.The entire | | | | | | specimen is submitted. | | | | | | Cassette | | | | | | Index:[id number] | | | | | | ng Diagnostician: | | | | | | Miguel Gao | | | | | | DeclanPathologistJanettei | | | | | | will Signed 08/30/2005 | | | | + + + + + + + + | Specimen | + + | | + + + + + + + | Performing | Address | City/State/Zipcode | Phone Number | | Organization | | | | + + + + + | [facility] | [address] | [place] [address] | | | PATHOLOGY | JACKY GARNETT | | | + + + + + | [facility] | [address] | [place] [address] | | | PATHOLOGY | JACKY GARNETT | | | + + + + + documented in this encounter Visit Diagnoses Not on filedocumented in this encounter
--- OUTSIDE RECORDS SUMMARY | ~2020-05-04 | XMS | Encounter Summary ---
Demographics + + + | Address | [address] | | | [place] [address] | + + + | Home Phone [...] + | Gene Gee | ECON | [address] | | | | | [place], | | | | | [place] [address] | | + + + + + Care Team Providers + +------+ + | Care Senior Systems Developer Name | Role | Phone | + +------+ + | Antony Ribera MD | PCP | | + +------+ + Reason for Visit + + + | Reason | Comments | + + + | Breast infection | Pt. here for Lt. breast evaluation. | + + + Global Period - [...] | | | | | | | [place] for | | | | | | | Health and | | | | | | | Healing, | | | | | | | [address], | | | | | | | 5th Floor | | | | | | | [place], [place] | | | | | | | [address] | | | | | | | Phone: | | | | | | | [phone] | +--------+--------+ + + + + Encounter Details +--------+---------+ + + + | Date | Type | Department | Care Team | Description | +--------+---------+ + + + | 12/13/ | Office | Plastic and | Santiago Hu, | Acquired Absence of | | 2012 | Visit | Reconstructive | PA-C [address] | Breast (Primary Dx) | | | | Surgery at [facility] [address] | | [address] | [address] [place], [place] | | | | | Mailcode: [facility] | [address] | | | | | [facility] | | | | | | and Healing, | | | | | | Building [address], 5th | | | | | | Floor [facility] [place] | | | | | | [address] | | | | | | [phone] | | | +--------+---------+ + + + [...] + + + | Blood Pressure | 119/61 | 12/13/2012 2:52 PM | | | | | PDT | | + + + + + | Pulse | 70 | 12/13/2012 2:52 PM | | | | | PDT | | + + + + + | Temperature | 36.8 C (98.2 F) | 12/13/2012 2:52 PM | | | | | PDT | | + + + + + | Respiratory Rate | 14 | 12/13/2012 2:52 PM | | | | | PDT | | + + + + + | Oxygen Saturation | 100% | 12/13/2012 2:52 PM | | | | | PDT | | + + + + + | Inhaled Oxygen | - | - | | | Concentration | | | | + + + + + | Weight | 65.2 kg (143 lb 11.2 | 12/13/2012 2:52 PM | | | | oz) | PDT | | + + + + + | Height | 165.1 cm (5' 5") | 12/13/2012 2:52 PM | | | | | PDT | | + + + + + | Body Mass Index | 23.91 | 12/13/2012 2:52 PM | | | | | PDT | | + + + + + documented in this encounter Progress Notes Santiago Berumen - 12/13/2012 3:33 PM PDTPlastic and Reconstructive Surgery Post-operative Visit HPI: Adriana Flynn is a 67 y.o. female who presents today status-post right TE exchange to impla nt and left breast reduction on 10/04/12. She has had a persistent open draining wound on th e left breast for the past two weeks. She reports that it is at an area that she had a spitt ing suture that was debrided by Dr Gold a few weeks ago. There is a build up of localized swelling and redness with a spontaneous release of pus. This progression has occurred severa l times. She has been cleaning the area with soap and water and applying Neosporin wo no imp rovement. Her pain control is good. She is currently taking nothing for pain. Here today fo r evaluation. Denies constitutional sxs. Denies fever, chills, fatigue. PE: Vitals: BP 119/61 | Pulse 70 | Temp (Src) 36.8 C (98.2 F) (Oral) | RR 14 | Ht 1.651 m ( 5' 5") | Wt 65.182 kg (143 lb 11.2 oz) | SpO2 100% | BMI 23.91 kg/(m^2) General Appearance: Well-developed, well-nourished female in no apparent distress. Left Breast: overall shape and contour are good. Incisions are well healed with a thin, pin k, flat scar tissue. There is a small 2-3 mm crusted area along the vertical incision. Mild erythema around wound. It has no surrounding induration. There is no fluctuance. Area has mi ld tenderness. No acute drainage. Bedside I&D was done with no expression of serous fluid or purulence. Did remove a very small remnant of suture material was debrided. Wound was dress ed with plain packing and covered with 4x4. Impression: S/P: right TE exchange to implant and left breast reduction Stitch abscess Plan: -Reviewed wound care. Patient instructed to wash wound daily. Use soap and running water da yin. Avoid saunas, hot tubs, swimming pools, and bathing in standing water until advised oth erwise. Change the dressing every day. Apply packing in wound until it is to shallow to pack , then may apply abx ointment. -Rx for Augmentin for 5 days was provided. -F/U with me in one week for recheck and Dr Gold the following week as scheduled, sooner prn. The patient indicates understanding of these issues and agrees to the plan. Procedure Performed: Incision and drainage of left breast Estimated Blood Loss: ~1 cc Specimens: none Complications: none Findings: remnant suture The area was prepped with betadine and 1.5 cc of 1% lidocaine with epi was used to achieve local anesthesia. The area was bluntly dissected open with iris scissors. No purulent matte r was expressed but a small remnant suture was debrided. Hemostasis was achieved with local pressure. The site was dressed with plain packing and 4x4. Cultures were not sent. Santiago Hu PA-C Dept Plastic/Reconstructive Surgery [facility] Electronically signed on 12/13/2012 at 4:26 PM SANTIAGO HU PA-C. documented in this encounter Plan of Treatment Not on filedocumented as of this encounter Visit Diagnoses + + | Diagnosis | + + | Acquired Absence of Breast - Primary Acquired absence of breast and nipple | + + documented in this encounter
--- OUTSIDE RECORDS SUMMARY | ~2020-05-04 | XMS | Encounter Summary ---
Demographics + + + | Address | [address] | | | [place] [address] | + + + | Home Phone [...] + | Gene Gee | ECON | [address] | | | | | [place], | | | | | [place] [address] | | + + + + + Care Team Providers + +------+ + | Care Senior Formulation Scientist Name | Role | Phone | + [...] | | | | | Malignant | [place], | Health and | | | | | neoplasm of | [place] [address] | Healing, | | | | | breast | Phone: | Building 1, | | | | | (female), | [phone] | 5th Floor | | | | | unspecified | Fax: | [place], [place] | | | | | site Scar | [phone] | [address] | | | | | of breast | | Phone: | | | | | Procedures | | [phone] | | | | | REQUEST TO | | | | | | | SURGERY | | | | | | | EMPLOYMENT CLERK | | | | | | | [place] | | | | | | | NIPPLE/AREOL | | | | | | | A | | | | | | | RECONSTRUCTI | | | | | | | ON [place] | | | | | | | REPAIR | | | | | | | COMPLEX | | | | | | | WOUND TRUNK | | | | | | | 2.6-7.5 CM | | | | | | | NH | | | | | | | REP,SKIN,SHRADDHA | | | | | | | NK,CMPLX,+5C | | | | | | | M/< | | | +--------+--------+ + + + + Reason for Visit + + + | Reason | Comments | + + + | Follow-up encounter | op 10/04/12 R breast TE exchange to implant and L breast reduction | + + + Consultation (Routine) +--------+--------+ [...] | | | | absence of | [place], | | | | | | breast and | [place] | | | | | | nipple | [address] | | | | | | Procedures | Phone: | | | | | | CONSULT TO | [phone] | | | | | | SURGERY - | Fax: | | | | | | PLASTICS | [phone] | | +--------+--------+ + + + + Encounter Details +--------+---------+ + + + | Date | Type | Department | Care Team | Description | +--------+---------+ + + + | 01/30/ | Office | Plastic and | Errol Gold | Acquired absence of | | 2012 | Visit | Reconstructive | MD Manda NW | breast and nipple | | | | Surgery at [facility] [address] | [facility] [address] | (Primary Dx); | | | | [facility] | [address] [facility] [place] | Malignant neoplasm | | | | for Health and | [address] | of breast (female), | | | | Healing, Building 1, | | unspecified site; | | | | 5th Floor | | Scar of breast | | | | [place], [place] | | | | | | [address] | | | | | | [phone] | | | +--------+---------+ + + + [...] + + + | Blood Pressure | 133/70 | 01/30/2013 10:57 AM | | | | | PDT | | + + + + + | Pulse | 69 | 01/30/2013 10:57 AM | | | | | PDT | | + + + + + | Temperature | - | - | | + + + + + | Respiratory Rate | 16 | 01/30/2013 10:57 AM | | | | | PDT | | + + + + + | Oxygen Saturation | 100% | 01/30/2013 10:57 AM | | | | | PDT | | + + + + + | Inhaled Oxygen | - | - | | | Concentration | | | | + + + + + | Weight | 63 kg (139 lb) | 01/30/2013 10:57 AM | | | | | PDT | | + + + + + | Height | 166.4 cm (5' 5.5") | 01/30/2013 10:57 AM | | | | | PDT | | + + + + + | Body Mass Index | 22.78 | 01/30/2013 10:57 AM | | | | | PDT | | + + + + + documented in this encounter Progress Notes Alla Buchanan, Errol Holman - 01/30/2013 1:48 PM PDTPlastic and Reconstructive Surgery Post-operative Visit Adriana Flynn is a 67 y.o. female who presents today status-post right TE exchange to impla nt and left breast reduction on 10/04/12. She has had a persistent open draining wound on th e left breast last month. This has since healed. She continues to have some "electric" type pains in this area. Has recently recovered from pneumonia. Vitals: BP 133/70 | Pulse 69 | RR 16 | Ht 1.664 m (5' 5.5") | Wt 63.05 kg (139 lb) | SpO2 1 00% | BMI 22.77 kg/(m^2) General Appearance: Well-developed, well-nourished female in no apparent distress. Left Breast: overall shape and contour are good. Incisions are well healed with a thin, pin k, flat scar tissue. Wound along vertical incision has healed. No erythema. There is no fluc tuance. Nipple with decreased sensation. Right breast: Incision healed, erythema absent, no edema, fluctuance absent, no ecchymosis. Implant is in good position, soft. No discrete masses. Capsular contracture: Mak grade I. Right breast implant can be displaced laterally. Small area of redundant tissue medial to scar. Inframammary fold equal. Breasts equal in size Impression: Status post right TE exchange to implant and left breast reduction Plan: Doing well with improved shape and contour of reduced size We will continue to monitor for return of nipple sensation. Continue scar massage. Could st art neurontin for left breast nerve pain, but patient does not feel that her pain warrants s tarting a medication. On the left side, we discussed potentially closing the breast pocket l aterally, but I feel that this could wait until she requires some additional revision of thu t implant. We will proceed with nipple reconstruction of the right breast and medial scar re vision as an office procedure next month. Total time spent in hapn-un-ybav consultation with patient was 20 minutes, with more than 50% of time spent on counseling of different types of treatment options and the risks, benef its and alternatives of these options and patient education. 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
--- OUTSIDE RECORDS SUMMARY | ~2020-05-04 | XMS | Encounter Summary ---
Demographics + + + | Address | [address] | | | [place] [address] | + + + | Home Phone [...] + | Gene Gee | ECON | [address] | | | | | [place], | | | | | [place] [address] | | + + + + + Care Team Providers + +------+ + | Care Event Marketing Manager Name | Role | Phone | + +------+ + | Antony Ribera MD | PCP | | + +------+ + Reason for Visit + +--------+ + | Reason | Onset | Comments | | | Date | | + +--------+ + | Refill Request | 05/13/ | | | | 2014 | | + +--------+ + Encounter Details +--------+--------+ + + + | Date | Type | Department | Care Team | Description | +--------+--------+ + + + | 05/13/ | Refill | Cardiology | Francheska Quick, MICHAEL | Refill Request | | 2015 | | Arrhythmia at [facility] | [address] | | | | | [address] | [place], [place] | | | | | [facility] | [address] | | | | | and Healing, | [phone] | | | | | [facility] | | | | | | Floor [facility] [place] | | | | | | [address] | | | | | | [phone] | | | +--------+--------+ + + + [...] this encounter Miscellaneous Notes Telephone Encounter - Boris Adams MA - 05/13/2015 12:17 PM PDTFormatting of this not e might be different from the original. Refill Request for: Requested Prescriptions Pending Prescriptions Disp Refills DOFETILIDE 500 mcg oral capsule 180 capsule 3 Sig: Take 1 capsule by mouth two times daily. Patient Last Seen: 01/19/[address] Fuentes Follow Up Plan: Pt supposed to have 6 month f/u, this is not currently scheduled. I will le t schedulers know to set this up with a new provider. Please review and sign if appropriate documented in this encounter Plan of Treatment Not on filedocumented as of this encounter Visit Diagnoses Not on filedocumented in this encounter"
--- OUTSIDE RECORDS SUMMARY | ~2020-05-04 | XMS | Encounter Summary ---
Demographics + + + | Address | [address] | | | [place] [address] | + + + | Home Phone [...] + | Gene Gee | ECON | [address] | | | | | [place], | | | | | [place] [address] | | + + + + + Care Team Providers + +------+ + | Care Senior Training And Development Rep Name | Role | Phone | + +------+ + | Antony Ribera MD | PCP | | + +------+ + Reason for Visit + +--------+ + | Reason | Onset | Comments | | | Date | | + +--------+ + | Erroneous Encounter | 05/26/ | | | - Disregard | 2010 | | + +--------+ + Encounter Details +--------+--------+ + + + | Date | Type | Department | Care Team | Description | +--------+--------+ + + + | 05/26/ | Refill | Pulmonary & | Sergio Smith | Erroneous Encounter | | 2010 | | Critical Care | MD Dianna | - Disregard | | | | Medicine at | | | | | | [facility] | | | | | | [address] | | | | | | Loop [facility] | | | | | | [place], [address] [place] [address] | | | | | | [place], [place] | | | | | | [address] | | | | | | [phone] | | | +--------+--------+ + + + [...]
--- OUTSIDE RECORDS SUMMARY | ~2020-05-04 | XMS | Encounter Summary ---
Demographics + + + | Address | [address] | | | [place] [address] | + + + | Home Phone [...] + | Gene Gee | ECON | [address] | | | | | [place], | | | | | [place] [address] | | + + + + + Care Team Providers + +------+ + | Care Sewer Pipe Offbearer Name | Role | Phone | + [...] | nodule | [address] | [address] | | | | | Disorder of | [address] | [place] | | | | | bone and | [place], [place] | Rd [place], | | | | | cartilage, | [address] | [place] | | | | | unspecified | Phone: | [address] | | | | | | [phone] | Phone: | | | | | | Fax: | [phone] | | | | | | [phone] | Fax: | | | | | | | [phone] | +--------+ + + + + + Encounter Details +--------+---------+ + + + | Date | Type | Department | Care Team | Description | +--------+---------+ + + + | 06/13/ | Office | John Rudolph | Tapan Horowitz MD | Disorder of bone and | | 2017 | Visit | Diabetes Health | [address] [facility] | cartilage (Primary | | | | Center at [facility] | [address] [place], | Dx); Thyroid nodule; | | | | [address] | [place] [address] | Other specified | | | | [address] | [phone] | disorders of bone | | | | [facility] | | density and | | | | Physician's | | structure, | | | | Pavilion [place], | | unspecified site | | | | [place] [address] | | (CODE) | | | | [phone] | | | +--------+---------+ + + + [...] Rate | 12 | 06/13/2017 12:53 PM | | | | | PST | | + + + + + | Oxygen Saturation | - | - | | + + + + + | Inhaled Oxygen | - | - | | | Concentration | | | | + + + + + | Weight | 71.2 kg (157 lb) | 06/13/2017 12:53 PM | | | | | PST | | + + + + + | Height | 166.6 cm (5' 5.6") | 06/13/2017 12:53 PM | | | | | PST | | + + + + + | Body Mass Index | 25.65 | 06/13/2017 12:53 PM | | | | | PST [...] one on one counseling. Reviewed DXA report documented in this encou nter Plan of Treatment Not on filedocumented as of this encounter Results TSH (06/13/2017 1:00 PM PST) + +-------+ + + + | Component | Value | Ref Range | Performed | Pathologist | | | | | At | Signature | + +-------+ + + + | TSH | 1.78 | 0.47 - 7.11 | [facility] | | | | | mIU/L | LABORATORY | | | | | | SERVICES, | | | | | | CORE | | + +-------+ + + + + + | Specimen | + + | Blood | + + + + + | Narrative | Performed At | + + + | TSH reference ranges are influenced by a variety of environmental | [facility] | | influences, age, gender and ethnicity. The supplied reference limits | LABORATORY | | are based on published values utilizing a similar TSH assay, and | SERVICES, CORE | | should be interpreted with caution. | | + + + + + + + + | Performing | Address | City/State/Zipcode | Phone Number | | Organization | | | | + + + + + | [facility] | [address] | [place] [address] | | | SHELBY CARLOS | [address] | | | + + + + + VITAMIN D, 25-HYDROXY, SERUM (06/13/2017 1:00 PM PST) + + + + + + | Component | Value | Ref Range | Performed | Pathologist | | | | | At | Signature | + + + + + + | VITAMIN D | 29.0 (L) | 30 - 80 ng/mL | [facility] | | | 25 HYDROXY | | | LABORATORY | | | | | | SERVICES, | | | | | | CORE | | + + + + + [...] + + | [facility] | [address] | [place] [address] | | | SERVICES, CORE | [address] | | | + [...] structure, unspecified site (CODE) | + + documented in this encounter
--- OUTSIDE RECORDS SUMMARY | ~2020-05-04 | XMS | Encounter Summary ---
Demographics + + + | Address | [address] | | | [place] [address] | + + + | Home Phone [...] + + + | Author | [facility] | + + + | Organization | [facility] | + + + | Address | Unknown | + + + | Phone | Unavailable | + + + Support + + + + + | Name | Relationship | Address | Phone | + + + + + | Gene Gee | ECON | [address] | | | | | [place], | | | | | [place] [address] | | + + + + + Care Team Providers + +------+ + | Care Service Developer Name | Role | Phone | [...] Description | +--------+---------+ + + + | 04/28/ | Office | Bone Density at | | Disorder of bone and | | 2010 | Visit | [facility] [address] | | cartilage, | | | | Center for [facility] | | unspecified (Primary | | | | and Healing, | | Dx) | | | | Building [address] | | | | | | [place], [place] | | | | | | [address] | | | | | | [phone] | | | +--------+---------+ + + + [...] + documented as of this encounter Progress Marjan Lea - 04/28/2011 11:05 AM PDTBone density scans performed. Please see the Inter epretation Report, located in Chart Review, under the Media tab. documented in this encoun ter Procedure Gisele Cohen - 05/08/2011 8:19 AM PDTAssociated Order(s): BONE DENSITOMETRYElectronicall y signed by Gisele Strong at 05/08/2011 8:19 AM PDTdocumented in this encounter Miscellaneous Notes Scan - Gisele Strong - 05/15/2012 2:36 PM PDTElectronically signed by Gisele Strong at 2:36 PM PDTdocumented in this encounter Plan of Treatment + +---------+--------+ + + | Name | Type | Priori | Associated Diagnoses | Order Schedule | | | | ty | | | + +---------+--------+ + + | ID DXA BONE DENSITY, | Imaging | Routin | Disorder of bone | Ordered: 04/28/2011 | | AXIAL | | e | and cartilage, | | | | | | unspecified | | + +---------+--------+ + + documented as of this encounter Procedures + +--------+ + + + | Procedure Name | Priori | Date/Time | Associated Diagnosis | Comments | | | ty | | | | + +--------+ + + + | BONE DENSITOMETRY | | 04/28/2011 | | Results for this | | | | 12:00 AM | | procedure are in the | | | | PDT | | results section. | + +--------+ + + + documented in this encounter Results BONE DENSITOMETRY (04/28/2011 12:00 AM PDT) + + + | Narrative | Performed At | + + + | | | + + + + + | Transcriptions | + + | Gisele Strong - 05/08/2011 8:19 AM PDT | + + documented in this encounter Visit Diagnoses + + | Diagnosis | + + | Disorder of bone and cartilage, unspecified - Primary | + + documented in this encounter"
--- OUTSIDE RECORDS SUMMARY | ~2020-05-04 | XMS | Encounter Summary ---
Demographics + + + | Address | [address] | | | [place] [address] | + + + | Home Phone [...] + | Gene Gee | ECON | [address] | | | | | [place], | | | | | [place] [address] | | + + + + + Care Team Providers + +------+ + | Care Cheese Sprayer Name | Role | Phone | + +------+ + | Antony Ribera MD | PCP | | + +------+ + Encounter Details +--------+ + + + + | Date | Type | Department | Care Team | Description | +--------+ + + + + | 06/22/ | MyChart | Cardiology | Monique Middleton, | RE: Too high | | 2010 | Encounter | Arrhythmia at [facility] | FILE KEEPER | Cholesterol | | | | [address] | | | | | | [place] for [facility] | | | | | | and Healing, | | | | | | Building | | | | | | Floor [place], [place] | | | | | | [address] | | | | | | [phone] | | | +--------+ + + + [...]
--- OUTSIDE RECORDS SUMMARY | ~2020-05-04 | XMS | Encounter Summary ---
Demographics + + + | Address | [address] | | | [place] [address] | + + + | Home Phone [...] + | Gene Gee | ECON | [address] | | | | | [place], | | | | | [place] [address] | | + + + + + Care Team Providers + +------+ + | Care Special Trackwork Blacksmith Name | Role | Phone | + +------+ + | Antony Ribera MD | PCP | | + +------+ + Encounter Details +--------+ + + + + | Date | Type | Department | Care Team | Description | +--------+ + + + + | 06/20/ | Office | [facility] | A, [address] | | | 2006 | Visit-ECX | Clinics at [address] [place], | | | | | [place] [address] | [place] [address] [address], Hem | | | | | [facility] for | [address] | | | | | Health and Healing, | [place] [address] | | | | | Building [address] | | | | | | [place], [place] | | | | | | [address] | | | | | | [phone] | | | +--------+ + + + [...] | Blood Pressure | 113/58 | 06/20/2007 1:31 PM | | | | | PST | | + + + + + | Pulse | 71 | 06/20/2007 1:31 PM | | | | | PST | | + + + + + | Temperature | 37.3 C (99.2 F) | 06/20/2007 1:31 PM | | | | | PST [...] 67 kg (147 lb 11.3 | 06/20/2007 1:31 PM | | | | oz) [...]
--- OUTSIDE RECORDS SUMMARY | ~2020-05-04 | XMS | Encounter Summary ---
Demographics + + + | Address | [address] | | | [place] [address] | + + + | Home Phone [...] + | Gene Gee | ECON | [address] | | | | | [place], | | | | | [place] [address] | | + + + + + Care Team Providers + +------+ + | Care Physician Assistant Primary Care Name | Role | Phone | + +------+ + | Antony Ribera MD | PCP | | + +------+ + Encounter Details +--------+ + + + + | Date | Type | Department | Care Team | Description | +--------+ + + + + | 05/17/ | Abstract | Hematology/Medical | Stevan Velazquez, | | | 2006 | ECX | Oncology at [facility] | [address] | | | | | [address] | [place], [place] | | | | | Mailcode: [place] | [address] | | | | | [facility] | [phone] | | | | | and Healing, | | | | | | [facility] | | | | | | Floor [place], [place] | | | | | | [address] | | | | | | [phone] | | | +--------+ + + + [...]
--- OUTSIDE RECORDS SUMMARY | ~2020-05-04 | XMS | Encounter Summary ---
Demographics + + + | Address | [address] | | | [place] [address] | + + + | Home Phone [...] + | Gene Gee | ECON | [address] | | | | | [place], | | | | | [place] [address] | | + + + + + Care Team Providers + +------+ + | Care Transformer Mechanic Name | Role | Phone | + +------+ + | Antony Ribera MD | PCP | | + +------+ + Encounter Details +--------+ + + + + | Date | Type | Department | Care Team | Description | +--------+ + + + + | 09/17/ | Document-Sc | UNKNOWN DEPARTMENT | Radiologist, | | | 2009 | [facility] | [address] | [facility] [place] | | | | | [address] | | | | | | [place], [place] | | | | | | [address] | | | +--------+ + + + [...]
--- OUTSIDE RECORDS SUMMARY | ~2020-05-04 | XMS | Encounter Summary ---
Demographics + + + | Address | [address] | | | [place] [address] | + + + | Home Phone [...] + | Gene Gee | ECON | [address] | | | | | [place], | | | | | [place] [address] | | + + + + + Care Team Providers + +------+ + | Care Director Of Student Financial Aid Name | Role | Phone | + +------+ + | Antony Ribera MD | PCP | | + +------+ + Reason for Visit + +--------+ + | Reason | Onset | Comments | | | Date | | + +--------+ + | Refill Request | 11/08/ | | | | 2009 | | + +--------+ + Encounter Details +--------+--------+ + + + | Date | Type | Department | Care Team | Description | +--------+--------+ + + + | 11/08/ | Refill | Cardiology | Monique Middleton, | Refill Request | | 2009 | | Arrhythmia at [facility] | SERVICE SECRETARY | | | | | [address] | | | | | | [facility] | | | | | | and Healing, | | | | | | [facility] | | | | | | [place], [place] | | | | | | [address] | | | | | | [phone] | | | +--------+--------+ + + + [...]
--- OUTSIDE RECORDS SUMMARY | ~2020-05-04 | XMS | Encounter Summary ---
Demographics + + + | Address | [address] | | | [place] [address] | + + + | Home Phone [...] + | Gene Gee | ECON | [address] | | | | | [place], | | | | | [place] [address] | | + + + + + Care Team Providers + +------+ + | Care Orthotics Assistant Name | Role | Phone | [...] + + + | Closed | | Surgery | | Kush | [facility] | | | | | | MD Ross | Surg [facility] | | | | | | [address] | [address] | | | | | | [address] | [address] | | | | | | [address] | for Health | | | | | | [place], [place] | and Healing, | | | | | | [address] | [address] | | | | | | Phone: | [place], [place] | | | | | | [phone] | [address] | | | | | | Fax: | Phone: | | | | | | [phone] | [phone] | | | | | | | Fax: | | | | | | | [phone] | +--------+--------+ + + + + Encounter Details +--------+---------+ + + + | Date | Type | Department | Care Team | Description | +--------+---------+ + + + | 05/21/ | Office | Digestive Health | Alea Noriega MD | History of Small | | 2007 | Visit | Center at [facility] [address] | [address] | Bowel Obstruction | | | | [facility] | [address] [place], | (Primary Dx) | | | | for Health and | [place] [address] | | | | | [facility] 2 | [phone] | | | | | [place], [place] | | | | | | [address] | | | | | | [phone] | | | +--------+---------+ + + + [...] | Blood Pressure | 107/65 | 05/21/2008 1:55 PM | | | | | PST | | + + + + + | Pulse | 73 | 05/21/2008 1:55 PM | | | | | PST | | + + + + + | Temperature | 36.4 C (97.5 F) | 05/21/2008 1:55 PM | | | | | PST | | + + + + + | Respiratory Rate | 16 | 05/21/2008 1:55 PM | | | | | PST | | + + + + + | Oxygen Saturation | - | - | | + + + + + | Inhaled Oxygen | - | - | | | Concentration | | | | + + + + + | Weight | 66.8 kg (147 lb 4.8 | 05/21/2008 1:55 PM | | | | oz) | PST | | + + + + + | Height | 167 cm (5' 5.75") | 05/21/2008 1:55 PM | | | | | PST | | + + + + + | Body Mass Index | 23.96 | 05/21/2008 1:55 PM | | | | | PST | | + + + + + documented in this encounter Progress Notes Alea Noriega MD - 09/30/2009 11:56 AM PDT [id number] 05/21/2008 [id number] [facility] Manda [id number] Referred From and Faxed To: Ross Currie [...] February 2008, and most recently here at [facility], March 2008 as being episodes of small [...] Positive for diabetes, fibromyalgia, and cardiovascular disease. Lab Data: Recent hematocrit from April 01, 2008, 41.8, hemoglobin 13.8, white count 9.7, and platelet count 193. AST 24, ALT 21, total bilirubin 1.1, alk phos 66, creatinine 0.88, and lipase normal. Recent imaging performed at [facility] on April 02, 2008, shows an impression [...] Further recommendations will be discussed by phone in the near future. Alea Noriega M.D. / FRANCA [id number] / [id number] / [id number] / cc: Ross Currie M.D. Division of General Surgery, [facility] lea Noriega - 05/21/2008 3: 27 PM PSTNote dictated: [id number] signed by Alea Noriega at 05/21/2008 3:27 PM PST documented in this encounter Procedure Notes Other, Faculty - 07/21/2008 11:40 AM PST Electronically signed by Candida Hernandez a t 07/21/2008 11:40 AM PSTdocumented in this encounter Miscellaneous Notes Scan - Other, Faculty - 08/13/2008 8:14 AM PST can - Other, Faculty - 07/14/2008 3:08 PM PST Electronica lly signed by Candida Hernandez In at 07/14/2008 3:08 PM PSTSclashawn - Ligia, Faculty - 05/21 2:58 PM PSTAssociated Order(s): LAB REPORTS Electronically signed by Gisele rodriguez 05/21/2008 12:00 AM PSTdocumented in this encounter Plan of Treatment Not on filedocumented as of this encounter Procedures + +--------+ + + + | Procedure Name | Priori | Date/Time | Associated Diagnosis | Comments | | | ty | | | | + +--------+ + + + | LAB REPORTS | | 05/21/2008 | | Results for this | | | | 2:58 PM | | procedure are in the | | | | PST | | results section. | + +--------+ + + + documented in this encounter Results LAB REPORTS (05/21/2008 2:58 PM PST) + + + | Narrative | Performed At | + + + | | | + + + + + | Procedure Note | + + | Gisele Strong - 05/21/2008 2:58 PM PST | + + documented in this encounter Visit Diagnoses + + | Diagnosis | + + | History of small bowel obstruction - Primary Personal history of other diseases of | | digestive system | + + documented in this encounter
--- OUTSIDE RECORDS SUMMARY | ~2020-05-04 | XMS | Encounter Summary ---
Demographics + + + | Address | [address] | | | [place] [address] | + + + | Home Phone [...] + | Gene Gee | ECON | [address] | | | | | [place], | | | | | [place] [address] | | + + + + + Care Team Providers + +------+ + | Care Movie Machine Operator Name | Role | Phone [...] | | Surgery | Carcinoma | MD Luís | MD Kika | | | | | in situ of | [address] | [address] | | | | | breast | Ave | Ave | | | | | Procedures | [place], [place] | [place] | | | | | CONSULT TO | [address] | [address] | | | | | SURGERY - | Phone: | Phone: | | | | | PLASTICS | [phone] | [phone] | | | | | | Fax: | Fax: | | | | | | [phone] | [phone] | +--------+--------+ + + + + Reason for Visit + + + | Reason | Comments | + + + | New patient | | | consultation | | + + + Encounter Details +--------+---------+ + + + | Date | Type | Department | Care Team | Description | +--------+---------+ + + + | 03/07/ | Office | [facility] | [facility], | 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 | Visit | at [facility] [address] | MD [address] | Breast (Primary | | | | [place] | [place], [place] | Dx); Malignant | | | | [id number] | [address] | Neoplasm of | | | | [facility], | [phone] | Upper-Outer Quadrant | | | | [place] [address] | | of Female Breast | | | | [phone] | | (HCC) | +--------+---------+ + + + Social History [...] + + + | Blood Pressure | 130/85 | 03/07/2007 10:46 AM | | | | | PDT | | + + + + + | Pulse | 74 | 03/07/2007 10:46 AM | | | | | PDT | | + + + + + | Temperature | 36.9 C (98.5 F) | 03/07/2007 10:46 AM | | | | | PDT [...] + + + + | Weight | 66.4 kg (146 lb 5 | 03/07/2007 10:46 AM | | | | oz) | PDT | | + + + + + | Height | 167.6 cm (5' 6") | 03/07/2007 10:46 AM | | | | | PDT | | + + + + + | Body Mass Index | 23.62 | 03/07/2007 10:46 AM | | | | | PDT | | + + + + + documented in this encounter Progress Notes [facility] - 03/07/2007 3:54 PM PDTFormatting of this note might be different from zachariah tamez. BREAST CLINIC OUTPATIENT CONSULTATION 03/07/2007 Consulting Physician: [facility] MD Referring Physician: Sarah Bernal HPI: Adriana Flynn is a 61 y.o. female is here for a breast clinic consultation for recentl y diagnosed right breast cancer. She had a normal mammogram examination in November of this year and then saw her PCP about 3 weeks ago. The PCP thought she felt a mass in the UOQ of the [facility] breast and sent her for an U/S. The area of concern was normal on the U/S but another ar ea was seen to be suspicious. She had 6 core biopsies of that area which revealed grade I in vasive ductal carcinoma. Her follow-up radiology report indicates that the pathology showed DCIS, but I think this is an erro. She reports a hematoma forming in the area of the bx. She denies other breast symptoms of masses, skin changes, nipple discharge, or adenopathy. She also denies any new constitutional symptoms of fatigue, weight loss, fever, or headache. She does have intermittent partial small bowel obstruction and was recently discharged with ano ther bout of this, successfully treated with non-operative treatment. PAST MEDICAL HISTORY: Past Medical History Diagnosis Date Sjogrens Syndrome 1995 Fibromyalgia 1995 Mitral Valve Prolapse 1989 GERD (Gastroesophageal Reflux Disease) 1995 Asthma 1999 TMJ (Dislocation of Temporomandibular Joint) Fibrocystic Disease of Breast 1978 Diverticul Disease Small and Large Intestine, no Perforati or Abscess Skin Cancer back Small Bowel Obstruction 07/20,10/19,02/19 Atrial Tachycardia 07/20 Bursitis 2005 Plantar Fascial Fibromatosis 2006 plantar fascial tear PAST SURGICAL HISTORY: Past Surgical History Procedure [...] [facility] ablation 12/16/2004,09/21/2005 Dr. Fuentes, [facility] MEDICATIONS: Current outpatient prescriptions Medication Atenolol 25 mg Oral Tablet Ezetimibe (ZETIA) 10 mg Oral Tablet Fluoxetine HCl (PROZAC) 20 mg Oral Capsule Docusate Sodium (STOOL SOFTENER) 100 mg Oral Capsule Vitamin A-Vitamin C-Vit E-Min (ANTIOXIDANT FORMULA) Oral Capsule Glucosamine Sulfate 1,000 mg Oral Capsule VITAMINS-LIPOTROPICS OR Amino Acids (AMINO ACID) Oral Capsule DHEA OR PROTONIX 40 MG TAB PEPCID 20 MG TAB SPIRIVA WITH HANDIHALER 18 MCG & INHALATION CAPS ULTRAM 50 MG TAB ETHMOZINE 200 MG TAB MULTIVITAMIN CAP LEVSIN 0.125 MG TAB PULMICORT 0.25 MG/2 ML INHL NEBU ALLERGIES: Allergies Allergen Reactions Ciprofloxacin HIVES/RASH Sulfa (sulfonamides) Triamterene-hydrochlorothiazid BREAST LUMPS Celebrex (celecoxib) Diarrhea and Cough Albuterol Tachycardia Flecainide Acetate Propafenone SOCIAL HISTORY: History Social History Marital Status: Spouse Name: N/A Number of Children: N/A Years of Education: N/A Occupational History retired 2000 Social History Main Topics Tobacco Use: Not on file Alcohol Use: Yes Drug Use: No Sexually Active: Not on file Other Topics Concern Not on file Social History Narrative No narrative on file FAMILY HISTORY: Patient denies family history of breast, ovarian, or other cancers. Family History Problem Relation Diabetes Heart REVIEW OF SYSTEMS: ROS was negative for all other symptoms: Review of Systems: General: No constitutional symptoms of fevers, fatigue, chills, weight loss or sweats. Eyes: No changes in vision loss, double vision, eye pain, eye irritation, discharge, blurr ed vision or light sensitivity. Ears, Nose and Throat: [...] bloody stools or dark ta rry stools. See above for partial SBO. Genitourinary: No urinary frequency, blood in urine, difficulty in urination, discharge, p ainful urination, incontinence, urinary urgency, genital sores, missed periods, pelvic pain or vaginal bleeding. Neurologic: No unusual headaches, inability to speak, poor balance, numbness, tingling, tr emors, memory loss, disturbances in coordination or sensation of room spinning. Skin: No itching, rash, poor wound healing, night sweats, changes in skin color, dryness, flushing or suspicious lesions. Psychological: No abnormal anxiety, depression, thoughts of suicide or hallucinations. Heme/Lymphatic: No skin discoloration, abnormal bleeding or enlarged lymph nodes. Endrocrine: No heat intolerance, cold intolerance, excessive hunger or excessive thirst. Allergic: No seasonal allergies, hives or rash, persistent infections or HIV exposure. OBJECTIVE Vital signs: BP 130/85 | Pulse 74 | Temp (Src) 98.5 F (36.9 C) (Oral) | Ht 1.676 m (5' 6") | Wt 66.367 kg (146 lbs 5.0 oz) PHYSICAL EXAM: General: Alert and oriented x3. Not jaundiced. Head and neck: Sclerae are anicteric. Neck is soft and supple. No cervical or clavicula r adenopathy on either side. Lungs: Clear to auscultation and percussion with 2cm diaphragmatic excursions on each side. Cardiac: RRR without S3 or murmur. Breast exam: A multi-positional bilateral breast exam was performed. Breast exam: the jillian sts are symmetric. The nipples are everted bilaterally. There is an obvious hematoma in the Right UOQ with a visible bulge and eccymosis. There is no other skin change, dimpling, or ma ss. Palpation of the right breast reveale a palpable hematoma in the UOQ. There was no righ t nipple discharge. There was no right axillary lymphadenopathy. Palpation of the left breas t did not reveal any dominant masses. There was no left nipple discharge. There was no left axillary lymphadenopathy. Abdomen: Nondistended. She has a Margarita-Mynor scar, a midline infraumbilical scar and a [place]'s scar. The liver is not palpable. The spleen is not palpable. There is no Sr. Katty mccartney's nodule. The liver percusses at 6cm in the mid-clavicular line. The abdomen is soft, non-tender and there are no palpable masses. Extremities: No cyanosis, clubbing, or edema. Pathology report shows a grade I invasive ductal carcinoma. ASSESSMENT: Adriana Flynn is a 61 y.o. female is here today for a breast clinic consultatio n for invasive ductal carcinoma of the right breast. She is S/P right breast core needle bio psy, the patient is doing well without wound complications. The pathology indicates invasive ductal carcinoma, grade I. The clinical stage thus far is T1 N0 M0, Stage I. I had a discussion lasting 60 minutes with the patient and her about breast cancer treatment, including operations for primary control of the tumor and adjuvant therapies to i mprove disease-free and overall survival rates. I discussed that the adjuvant therapy plans cannot be completed until the staging has been finalized after the definitive operation. I d iscussed the options of breast preservation (lumpectomy and radiation therapy) vs. mastectom y for local control, informing the patient that the overall survival rates are the same for these options despite differences in the local control rates. I discussed that lumpectomies may require several operations to achieve negative tumor margins and that radiation therapy is required after the lumpectomies.However, because she has Sjogren's syndrome, lumpectomy and radiation is contraindicated and she must have a mastectomy. I discussed that mastectomy could be offered with or without breast reconstruction and that reconstruction may be done immediately or it may be delayed. I discussed some of the reconstruction options for this pa tient. Given her abdominal incisions, she would not be a candidate for a TRAM flap. I don't know if she can have an implant with Sjogren's, but would refer her to Plastic Surgery for c onsultation about that. We discussed staging the axilla with sentinel node biopsy with lymph oscintigraphy localization and/or lymphozurin blue localization. I explained that axillary d issection would be required if the sentinel node is positive or no sentinel node can be loca lized by any technique. I discussed possible complications of axillary dissection, including nerve and vascular injury and lymphedema. I discussed the need for shoulder physical therap y after axillary dissection. I discussed complications of lumpectomies and mastectomies. Al l of the patients questions were answered. Breast cancer patient education materials were pr ovided to the patient by the clinic nursing staff. Plan: After the following discussion the patient chose mastectomy with SLNBx and immediate recons truction. I will refer her to Plastic Surgery for consultation. She will be scheduled for o peration at the next available date. I will have her Pathology Slides reviewed here to americo y that she has invasive ductal carcinoma and not DCIS. I would like to thank Dr. Bernal for allowing me to participate in the care of this pleasan t patient. LU[facility]S [facility] MD refiner operator Division of Surgical Oncology [address] [place], [place] [address] documented in this encoun ter Plan of Treatment Not on filedocumented as of this encounter Procedures + +--------+ + + + | Procedure Name | Priori | Date/Time | Associated Diagnosis | Comments | | | ty | | | | + +--------+ + + + | CYTOGENETICS REPORT | Routin | 03/07/2007 | | Results for this | | | e | | | procedure are in the | | | | | | results section. | + +--------+ + + + | SURGICAL PATHOLOGY | Routin | 03/07/2007 | Carcinoma in Situ | Results for this | | | e | | of Breast Malignant | procedure are in the | | | | | Neoplasm of | results section. | | | | | Upper-Outer Quadrant | | | | | | of Female Breast | | | | | | (HCC) | | + +--------+ + + + documented in this encounter Results CYTOGENETICS REPORT (03/07/2007) + + + + + + | Component | Value | Ref Range | Performed | Pathologist | | | | | At | Signature | + + + + + + | CHROMOSOME | SPECIMEN TYPE AND TYPE | | | | | REPORT | OF STUDY:A Breast Tumor | | | | | | Slides: HER-2/mayela | | | | | | FISHFISH Results: Normal | | | | | | Chromosome | | | | | | Results: NoneKARYOTYPE | | | | | | RESULTS: See below | | | | | | IMPRESSIONS AND | | | | | | RECOMMENDATIONS:Fluoresc | | | | | | ent in situ | | | | | | hybridization (FISH) was | | | | | | performed on | | | | | | deparaffinizedsections | | | | | | of tissue using Thornton | | | | | | probes for HER-2/mayela | | | | | | (LSI HER-2, red) withan | | | | | | identifier probe for the | | | | | | chromosome 17 | | | | | | pericentromeric region | | | | | | (D17Z1,green). A ratio | | | | | | of >2.2 is considered | | | | | | to be amplified, <1.8, | | | | | | notamplified, and 1.8 to | | | | | | 2.2, equivocal, based | | | | | | on ASCO/CAP guidelines. | | | | | | 25interphase cells | | | | | | were scored by the | | | | | | chief cardiopulmonary technologist | | | | | | and reviewedby the | | | | | | pathologist with the | | | | | | following results: LSI | | | | | | HER-2/ D17Z1: 54 red/ | | | | | | 48 green; ratio of red/ | | | | | | green: | | | | | | 1.12(interpretation: | | | | | | No Amplification) | | | | | | (Note: Interphase FISH | | | | | | analysis is not | | | | | | intended to stand alone, | | | | | | but ratherto provide | | | | | | supplemental information | | | | | | to routine cytogenetic | | | | | | studies,clinical | | | | | | assessment and | | | | | | pathological findings.) | | | | | | INTERPHASE FISH ANALYSIS | | | | | | SUMMARY:Cells Scored: | | | | | | 25 Probe(s): | | | | | | Thornton HER-2/mayela/CEP | | | | | | 17, Catalog #[id number], lot | | | | | | # [id number] This test was | | | | | | developed and its | | | | | | performance | | | | | | characteristics | | | | | | determined bythe [facility] | | | | | | Cytogenetics Laboratory | | | | | | as required by the CLIA | | | | | | #88 regulations.It has | | | | | | been approved by the | | | | | | U.S. Food and Drug | | | | | | Administration for in | | | | | | vitrodiagnostic use. | | | | | | Preliminary report date: | | | | | | 03/19/2007For questions | | | | | | regarding this report, | | | | | | please call [phone] | | | | | | [phone].Rendering | | | | | | Diagnostician: Katie | | | | | | Nate, PhD, ABMG, | | | | | | FACMGCytogeneticistElect | | | | | | ronically Signed | | | | | | 03/25/2007Rendering | | | | | | Diagnostician: Martin | | | | | | Yuki | | | | | | M.D.CytogeneticistElectr | | | | | | onically Signed | | | | | | 03/26/2007Comment: | | | | | | SOURCE OF SPECIMEN: | | | | | | Breast Tumor Slides: | | | | | | HER-2/mayela FISH | | | | + + + + + + + + | Specimen | + + | | + + + + + + + | Performing | Address | City/State/Zipcode | Phone Number | | Organization | | | | + + + + + | [facility] | [facility] | [place] [address] | | | GENETICS LABS | [address] | | | | | [address]VE. | | | + + + + + SURGICAL PATHOLOGY (03/07/2007) + + + + + + | Component | Value | Ref Range | Performed | Pathologist | | | | | At | Signature | + + + + + + | SURGICAL | THIS IS AN AMENDED | | [facility] | | | PATHOLOGY | REPORT SOURCE OF | | DEPARTMENT | | | | SPECIMEN:A Right Breast | | OF | | | | [employer] | | PATHOLOGY | | | | Received:Received on | | | | | | March 07, 2007, from | | | | | | [facility], | | | | | | [place], [place], are | | | | | | two stained slides, one | | | | | | paraffin block bearing | | | | | | accession | | | | | | [id number], and a | | | | | | pathology report | | | | | | indicating specimen was | | | | | | received on02/25/2007, | | | | | | diagnosed on 02/26/2007. | | | | | | Final Pathologic | | | | | | Diagnosis:This case is | | | | | | amended to include FISH | | | | | | results for Her2/mayela | | | | | | done at [facility] | | | | | | Cytogenetics Laboratory. | | | | | | Please see amended | | | | | | comment below. Breast | | | | | | mass, right, core | | | | | | biopsies ([id number], | | | | | | 02/25/07):- Invasive | | | | | | ductal carcinoma, | | | | | | modified | | | | | | Zkyrmx-Zemvd-Yawvgsdiju | | | | | | grade I to II(of III) as | | | | | | sampled - Ductal | | | | | | carcinoma in situ, low | | | | | | nuclear grade Amendment | | | | | | Comment: This case is | | | | | | reported by the (test # | | | | | | [id number]) asnegative | | | | | | for HER-2/mayela by | | | | | | fluorescence in-situ | | | | | | hybridization (FISH). | | | | | | Thisassay demonstrates | | | | | | a HER-2/mayela:CEP17 ratio | | | | | | of 1.12 (LSI HER-2/ | | | | | | D17Z1: 54red/ 48 | | | | | | green), based on | | | | | | enumeration of 25 | | | | | | interphase nuclei from | | | | | | invasivetumor cells. Per | | | | | | ASCO/CAP guidelines, | | | | | | cases with ratio less | | | | | | than 1.8 are interpreted | | | | | | asnon-amplified; ratio | | | | | | greater than 2.2 are | | | | | | interpreted as positive | | | | | | foramplification; and | | | | | | cases with ratio 1.8-2.2 | | | | | | are considered | | | | | | equivocal(correlation | | | | | | with | | | | | | immunohistochemistry is | | | | | | recommended). However, | | | | | | caseswith ratio greater | | | | | | than or equal to 2.0 | | | | | | are eligible for | | | | | | adjuvanttrastuzumab | | | | | | (Herceptin ) trials. | | | | | | Reference: ELMO Banks et | | | | | | al. AmericanSociety of | | | | | | Clinical | | | | | | Oncology/College of | | | | | | [place] Pathologists | | | | | | GuidelineRecommendation | | | | | | for Human Epidermal | | | | | | Growth Factor Receptor 2 | | | | | | Testing inBreast | | | | | | Cancer. Arch Pathol | | | | | | Lab Med 131:18-43. | | | | | | 2006.Amendment | | | | | | reviewed by: Martin Mirza, | | | | | | M.D. /Pathologist on | | | | | | March 27, 2007. ER, | | | | | | NJ and HER-2/mayela Tests | | | | | | Immunohistochemical | | | | | | stains are performed on | | | | | | formalin-fixed, | | | | | | paraffinembedded tissue, | | | | | | using an avidin-biotin | | | | | | protocol that includes | | | | | | appropriatepositive and | | | | | | negative controls. The | | | | | | following | | | | | | immunohistochemical | | | | | | staining pattern is seen | | | | | | in the tumorcells: | | | | | | Stain | | | | | | | | | | | | Result | | | | | | ?Es | | | | | | trogen Receptor (ER, | | | | | | clone [id number]) Positive (80 | | | | | | % of invasive cells | | | | | | showstaining) | | | | | | Progesterone Receptor | | | | | | (NJ, clone [id number]) | | | | | | Positive (patchy, about | | | | | | 80 % ofinvasive cells | | | | | | staining) HER-2/mayela | | | | | | (PATHWAYTMHer2 kit) | | | | | | Equivocal, | | | | | | 2+ staining in | | | | | | invasivecells Note: | | | | | | The ductal carcinoma | | | | | | in situ component shows | | | | | | strong nuclear | | | | | | stainingin 90% for ER | | | | | | and NJ. Note: The ER | | | | | | and NJ | | | | | | immunohistochemical | | | | | | stains are performed | | | | | | with standardkits from | | | | | | [employer]. The ER and NJ | | | | | | stains are considered | | | | | | positive if there | | | | | | ismoderate to strong | | | | | | nuclear staining in at | | | | | | least 10% of the tumor | | | | | | cells. Her-2/mayela | | | | | | immunohistochemical | | | | | | staining is performed | | | | | | with the | | | | | | VentanaPATHWAYTM kit, | | | | | | including monoclonal | | | | | | antibody [id number]. This | | | | | | protocol is FDAapproved. | | | | | | Positive, negative and | | | | | | equivocal controls | | | | | | showed | | | | | | appropriatereactivity. | | | | | | Tissue specimens | | | | | | processed at [facility] are | | | | | | routinely fixed | | | | | | between6-48 hours in | | | | | | neutral buffered | | | | | | formalin; core biopsy | | | | | | specimens are | | | | | | fixedlonger than 1 hour. | | | | | | Scoring and | | | | | | interpretation are per | | | | | | the [employer] scoringguide | | | | | | as modified by ASCO/CAP | | | | | | 2007 guidelines: score | | | | | | 0-no membrane | | | | | | [...] | | | | | | circumferential #chicken | | | | | | wire# | | | | | | staining(interpretation: [...] Reference: | | | | | | ELMO Banks et al. | | | | | | [place] Society | | | | | | ofClinical | | | | | | Oncology/College of | | | | | | [place] Pathologists | | | | | | [...] | | | | | Case reviewed by:Galina | | | | | | Declan Marie / Surgical | | | | | | Pathology FellowAndrew | | | | | | Declan Mayer / | | | | | | PathologistMartin Mirza, | | | | | | M.D., Ph.D./pathologist | | | | | | (Immunologic Analysis | | | | | | only)Slides will be | | | | | | returned at a later | | | | | | dateT:03/08/07:lab I | | | | | | [...] | | | | | | diagnosis. Immunologic | | | | | | Analysis: Analysis of | | | | | | ER, NJ, and HER-2: ER is | | | | | | positive approximately | | | | | | 80% of invasive cells | | | | | | show moderate to | | | | | | strongnuclear staining. | | | | | | Note: The ductal | | | | | | carcinoma in situ | | | | | | component shows strong | | | | | | nuclear stainingin 90% | | | | | | for ER. NJ, invasive | | | | | | part, staining is patchy | | | | | | but overall about 80% | | | | | | shows strongnuclear | | | | | | staining. Note: The in | | | | | | situ component shows | | | | | | strong staining for NJ | | | | | | and greater than90% of | | | | | | cells. HER-2, invasive | | | | | | part 2+ Note: The in | | | | | | situ component shows 2+ | | | | | | HER-2/mayela staining. | | | | | | Clinical History:The | | | | | | patient is a 61-year-old | | | | | | female with clinical | | | | | | history of new | | | | | | breastmass.Rendering | | | | | | Diagnostician: Delfino | | | | | | Leyla | | | | | | MEliPathologistJanettei | | | | | | will Signed | | | | | | 03/13/2007Rendering | | | | | | Diagnostician: Martin | | | | | | Yuki | | | | | | Ankita | | | | | | will Signed 03/27/2007 | | | | + + + + + + + + | Specimen | + + | Breast - Breast | + + + + + + + | Performing | Address | City/State/Zipcode | Phone Number | | Organization | | | | + + + + + | [facility] DEPARTMENT OF | [address] | [place] [address] | | | PATHOLOGY | [address] | | | + + + + + | [facility] DEPARTMENT OF | [address] | [place] [address] | | | PATHOLOGY | [address] | | | + + + + + documented in this encounter Visit Diagnoses + + | Diagnosis | + + | 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
--- OUTSIDE RECORDS SUMMARY | ~2020-05-04 | XMS | Encounter Summary ---
Demographics + + + | Address | [address] | | | [place] [address] | + + + | Home Phone | | + + + | Preferred Language | Unknown | + + + | Marital Status | | + + + | Orthodoxy Affiliation | 1013 | + + + | Race | White | + + + | Ethnic Group | Not or | + + + Author + + + | Author | [facility] | | | and [place] | + + + | Organization | [facility] | | | [...] Team Providers + +------+ + | Care Distribution Transformer Assembler Name | Role | Phone | + +------+ + | Alec Hill MD | PCP | | + +------+ + Encounter Details +--------+ + + + + | Date | Type | Department | Care Team | Description | +--------+ + + + + | 04/02/ | Orders Only | [facility] | Jenny Reyes | | | 2018 | | [address] | [address] | | | | | [place] | [place] | | | | | [address] | [place] | | | | | [phone] | [address] | | | | | | | [...] | | | | | [place] [address] | | | | | | [phone] | | | | | | | | +--------+ + + + + | 05/19/ | Appointment | Cardiology | Martin Kelley, | | | 2019 | | | MD [address] | | | | | | [place], | | | | | | [place] [address] | | | | | | [phone] | | | | | | | | +--------+ + + + + | 11/26/ | Office | Cardiology | Martin Kelley, | | | 2020 | Visit | | MD [address] | | | | | | [place] | | | | | | [place] [address] | | | | | | [phone] | | | | | | | | +--------+ + + + + documented as of this encounter Procedures + +--------+ + + + | Procedure Name | Priori | Date/Time | Associated Diagnosis | Comments | | | ty | | | | + +--------+ + + + | BASIC METABOLIC | Routin | 04/02/2018 | | Results for this | | PANEL | e | 12:20 PM | | procedure are in the | | | | PDT | | results section. | + +--------+ + + + documented in this encounter Results Basic Metabolic Panel (04/02/2018 12:20 PM PDT) + + + + + + | Component | Value | Ref Range | Performed | Pathologist | | | | | At | Signature | + + + + + + | Na | 145 | 135 - 145 | EXTERNAL | | | | | mmol/L | LAB | | + + + + + + | K | 4.1 | 3.5 - 4.9 | EXTERNAL | | | | | mmol/L | LAB | | + + + + + + | Cl | 109 | 99 - 109 mmol/L | EXTERNAL | | | | | | LAB | | + + + + + + | CO2 | 27 | 23 - 32 mmol/L | EXTERNAL | | | | | | LAB | | + + + + + + | Anion Gap | 13 | 5 - 20 mmol/L | EXTERNAL | | | | | | LAB | | + + + + + + | Glucose, | 69 | 65 - 99 mg/dL | EXTERNAL | | | Fasting | | | LAB | | + + + + + + | BUN | 14 | 8 - 25 mg/dL | EXTERNAL | | | | | | LAB | | + + + + + + | Creatinine | 0.8 | 0.50 - 1.00 | EXTERNAL | | | | | mg/dL | LAB | | + + + + + + | BUN/Creatin | 18 | | EXTERNAL | | | ine Ratio | | | LAB | | + + + + + + | Calcium | 9.2 | 8.5 - 10.5 | EXTERNAL | | | | | mg/dL | LAB | | + + + + + + | Estimated | >60Comment: GFR <60: | mL/min/1.73_m2 | EXTERNAL | | | GFR | CHRONIC KIDNEY DISEASE, | | LAB | | | | IF FOUND OVER A 3 MONTH | | | | | | PERIOD. GFR <15: KIDNEY | | | | | | FAILURE. FOR | | | | | | AMERICANS, MULTIPLY THE | | | | | | CALCULATED GFR BY 1.210. | | | | | | This eGFR is calculated | | | | | | using the MDRD IDMS | | | | | | traceable equation. | | | | + + + + + + + + | Specimen | + + | Blood specimen | | (specimen) | + + + +---------+ + + | Performing | Address | City/State/Zipcode | Phone Number | | Organization | | | | + +---------+ + + | EXTERNAL LAB | | | | + +---------+ + + documented in this encounter Visit Diagnoses Not on filedocumented in this encounter"
--- OUTSIDE RECORDS SUMMARY | ~2020-05-04 | XMS | Encounter Summary ---
Demographics + + + | Address | [address] | | | [place] [address] | + + + | Home Phone [...] + + | Author | [facility] | + + + | Organization | [facility] | + + + | Address | Unknown | + + + | Phone | Unavailable | + + + Support + + + + + | Name | Relationship | Address | Phone | + + + + + | Gene Gee | ECON | [address] | | | | | [place], | | | | | [place] [address] | | + + + + + Care Team Providers + +------+ + | Care Truck Engine Assembler Name | Role | Phone | + +------+ + | Antony Ribera MD | PCP | | + +------+ + Reason for Visit +--------+--------+ + | Reason | Onset | Comments | | | Date | | +--------+--------+ + | Other | 09/19/ | | | | 2018 | | +--------+--------+ + Encounter Details +--------+ + + + + | Date | Type | Department | Care Team | Description | +--------+ + + + + | 09/19/ | Telephone | [facility] | Tapan Horowitz MD | Other | | 2018 | | [facility] | [address] [facility] | | | | | [facility] | [address] [address], | | | | | [address] | [place] [address] | | | | | [address] | [phone] | | | | | [facility] | | | | | | Physician's | | | | | | Pavilion [place], | | | | | | [place] [address] | | | | | | [phone] | | | +--------+ + + + [...] Telephone Encounter - Tapan Horowitz MD - 09/19/2017 2:59 PM PSTdone elephone Encounter - Dionicio Valdez - 09/20/19 18 2:53 PM PSTPt called requesting notes from last endo visit be sent to her PCP. [facility]: [id number] signed by Dionicio Valdez at 09/19/2017 2:55 PM PSTdocument ed in this encounter Plan of Treatment Not on filedocumented as of this encounter Visit Diagnoses Not on filedocumented in this encounter"
--- OUTSIDE RECORDS SUMMARY | ~2020-05-04 | XMS | Encounter Summary ---
Demographics + + + | Address | [address] | | | [place] [address] | + + + | Home Phone [...] + | Gene Gee | ECON | [address] | | | | | [place], | | | | | [place] [address] | | + + + + + Care Team Providers + +------+ + | Care Scouring Train Operator Name | Role | Phone | + +------+ + | Antony Ribera MD | PCP | | + +------+ + Reason for Visit + +--------+ + | Reason | Onset | Comments | | | Date | | + +--------+ + | DEXA - Dual energy | 05/27/ | | | X-ray photon | 2008 | | | absorptiometry | | | + +--------+ + Encounter Details +--------+ + + + + | Date | Type | Department | Care Team | Description | +--------+ + + + + | 05/27/ | Telephone | [facility] | Tapan Horowitz MD | DEXA - Dual energy | | 2008 | | [facility] | [address] [facility] [address] | X-ray photon | | | | [facility] | [address] [place], | [facility] | | | | [address] | [place] [address] | | | | | [address] | [phone] | | | | | Physician's | | | | | | Pavilion, 1st floor | | | | | | [place], [place] | | | | | | [address] | | | | | | [phone] | | | +--------+ + + + [...] Telephone Encounter - Tapan Horowitz MD - 05/27/2009 4:18 PM PSTWill get DXA in January 2010El ectronically signed by Tapan Horowitz MD at 05/27/2009 4:18 PM PSTTelephone Encounter - Rah Dai - 05/27/2009 4:07 PM PSTPatient would like to know if she is going to need a Dex a scan to make sure the reclast is working. Please call her at [phone]. You can leave a detailed message. document ed in this encounter Plan of Treatment Not on filedocumented as of this encounter Visit Diagnoses Not on filedocumented in this encounter"
--- OUTSIDE RECORDS SUMMARY | ~2020-05-04 | XMS | Encounter Summary ---
Demographics + + + | Address | [address] | | | [place] [address] | + + + | Home Phone [...] + | Gene Gee | ECON | [address] | | | | | [place], | | | | | [place] [address] | | + + + + + Care Team Providers + +------+ + | Care Lap Hand Tool Name | Role | Phone | + +------+ + | Antony Ribera MD | PCP | | + +------+ + Encounter Details +--------+ + + + + | Date | Type | Department | Care Team | Description | +--------+ + + + + | 10/12/ | MyChart | Surgical Oncology | Henri Heart, | RE:package | | 2014 | Encounter | at [facility] [address] | MD [address] | | | | | Ave Center for | [place], [place] | | | | | Health and Healing, | [address] | | | | | [address] | [phone] | | | | | [place], [place] | | | | | | [address] | | | | | | [phone] | | | +--------+ + + + [...]
--- OUTSIDE RECORDS SUMMARY | ~2020-05-04 | XMS | Encounter Summary ---
Demographics + + + | Address | [address] | | | [place] [address] | + + + | Home Phone [...] + | Gene Gee | ECON | [address] | | | | | [place], | | | | | [place] [address] | | + + + + + Care Team Providers + +------+ + | Care Retread Mold Operator Name | Role | Phone | + +------+ + | Antony Ribera MD | PCP | | + +------+ + Encounter Details +--------+ + + + + | Date | Type | Department | Care Team | Description | +--------+ + + + + | 12/10/ | MyChart | Plastic and | Errol Gold | RE: Left breast | | 2012 | Encounter | Reconstructive | MD [address]anda [address] | draining | | | | Surgery at [facility] [address] | | | | [address] [facility] | [address] [facility], [place] | | | | | for Health and | [address] | | | | | Healing, [address], | | | | | | [address] [facility] | | | | | | [place], [place] | | | | | | [address] | | | | | | [phone] | | | +--------+ + + + [...]
--- OUTSIDE RECORDS SUMMARY | ~2020-05-04 | XMS | Encounter Summary ---
Demographics + + + | Address | [address] | | | [place] [address] | + + + | Home Phone [...] + | Gene Gee | ECON | [address] | | | | | [place], | | | | | [place] [address] | | + + + + + Care Team Providers + +------+ + | Care Producer Arborist Manager Name | Role | Phone | [...] | | | | | | Mailcode: [facility] | | | | | | | [facility] | | | | | | | for Health | | | | | | | and Healing, | | | | | | | [address] | | | | | | | [place], [place] | | | | | | | [address] | | | | | | | Phone: | | | | | | | [phone] | | | | | | | Fax: | | | | | | | [phone] | +--------+--------+ + + + + Encounter Details +--------+ + + + + | Date | Type | Department | Care Team | Description | +--------+ + + + + | 01/12/ | Hospital | [facility] | Nurse, G[address] | | | 2009 | Encounter | [facility] [address] [facility] | | | | | [address] [facility] | [address] [facility] [place] | | | | | Health and Healing, | [address] | | | | | [address] | | | | | | [place], [place] | | | | | | [address] | | | | | | [phone] | | | +--------+ + + + [...]
--- OUTSIDE RECORDS SUMMARY | ~2020-05-04 | XMS | Encounter Summary ---
Demographics + + + | Address | [address] | | | [place] [address] | + + + | Home Phone [...] + | Gene Gee | ECON | [address] | | | | | [place], | | | | | [place] [address] | | + + + + + Care Team Providers + +------+ + | Care Flanging Machine Operator Name | Role | Phone | + +------+ + | Antony Ribera MD | PCP | | + +------+ + Reason for Visit + + + | Reason | Comments | + + + | Follow-up visit | | + + + | Breast cancer | | + + + | Treatment Planning | | + + + Encounter Details +--------+---------+ + + + | Date | Type | Department | Care Team | Description | +--------+---------+ + + + | 05/18/ | Office | Hematology/Medical | Stevan Velazquez, | Breast cancer (HCC) | | 2010 | Visit | Oncology at [facility] | MD [address] | (Primary Dx) | | | | [address] | [place], [place] | | | | | Mailcode: [facility] | [address] | | | | | [facility] | [phone] | | | | | and [place], | | | | | | [place] [address] [facility] | | | | | | Floor [place], [place] | | | | | | [address] | | | | | | [phone] | | | +--------+---------+ + + + [...] + + + | Blood Pressure | 126/76 | 05/18/2011 11:54 AM | | | | | PDT | | + + + + + | Pulse | 60 | 05/18/2011 11:54 AM | | | | | PDT | | + + + + + | Temperature | 37.2 C (99 F) | 05/18/2011 11:54 AM | | | | | PDT | | + + + + + | Respiratory Rate | 14 | 05/18/2011 11:54 AM | | | | | PDT | | + + + + + | Oxygen Saturation | 99% | 05/18/2011 11:54 AM | | | | | PDT | | + + + + + | Inhaled Oxygen | - | - | | | Concentration | | | | + + + + + | Weight | 64.3 kg (141 lb 11.2 | 05/18/2011 11:54 AM | | | | oz) | PDT | | + + + + + | Height | - | - | | + + + + + | Body Mass Index | 22.87 | 04/28/2011 12:24 PM | | | | | PDT | | + + + + + documented in this encounter Progress Notes Stevan Velazquez MD - 05/18/2011 12:00 PM PDTFormatting of this note might be [...] taken off coumadin at that time. She since completed vein strippi ng surgery. She had upper GI endoscopy for recurrent GERD symptoms. Serial CT scans for small pulmonary nodules. Followed by pulmonary. Adriana recently decided against continued CT monitoring of pulmonary nodules due to concern for radiation exposure. T scores minus 1.9 and minus 1.6 in January 2010. T scores minus 1.8 and minus 1.8 in Apr 2011. Currently receiving reclast from endocrine. FH negative for cancer but mother has osteoporosis I spent more than 25 minutes with the patient face to face, more than half of which was dev oted to direct patient counseling. Here with her . SH notable for being , no smoking nor drinking. The third yearly reclast today- S- doing well Dental visit recently- doing OK- no need for procedure No toothache- TMJ problem No ache or pain No recurrent abdominal pain- for one and a half years now. October 2009 was the last episode- 2-3 day in hospital until resolved. Breathing OK pulmocort only [employer]quet ball club three times a week No coughing or sputum No hemoptysis No chest pain or pressure A little abdominal pain- no N/V BM daily No black or bloody stool No back pain No headache- sore back over muscles over her upper back- no different from before- a flare Pain med- half an ultram- 2-3 days in a row- then off for two weeks- intermittently No pain or burning with urination Sleeping well at night No joint pain or muscle ache Physically active. Patient not interested in additional CT scan- afraid of radiation exposure. Will see Pulabe raymond n Jul 2011. Had another tachycardia two months ago- lasting for one hour- went away on its own- it happ ened when she was reading in bed- went to ER- check up OK. Increase in cardiac med with ate nolol. No lump or bump sensation Will get thyroid ultrasound Other ROS is negative. Filed Vitals: 05/18/2011 11:54 AM Weight: 64.275 kg (141 lb 11.2 oz) BP: 126/76 Pulse: 60 Temp: 37.2 C (99 F) TempSrc: Forehead Resp: 14 SpO2: 99% PainSc: 0 - Zero Mental status, speech [...] axillary, supra-clav or infra-clav LAD Neuro intact Right sided breast surgically missing- left sided breast without mass or nodule palpable- n o nipple deformity or discharge- no overlying skin change CT chest without contrast. 11/17/2010. HISTORY: Evaluate lung nodules. Breast cancer.. COMPARISON: 05/03/2010, 12/28/08, 09/17/08. TECHNIQUE: Overlapping [address] images were obtained through the chest without contrast. 2-mm thick axial images at 10-mm intervals were also generated. Coronal reformatted images reviewed. FINDINGS: There is no pleural or pericardial effusion. The heart is normal in size. Surgical changes from prior right mastectomy and axillary lymph node dissection are again noted. There is no thoracic adenopathy by size criteria. Multiple scattered pulmonary nodules are present, as listed: Small cluster of 2-mm nodules in the left upper lobe, image 36, are new. Punctate left lower lobe, image 65 is new. Two 2 mm nodules in the posterior basal left lower lobe, image 99, are new. 2-mm nodule in the left lower lobe lateral basal segment, image 96, is unchanged from 05/03/10. 3-mm nodule in the minor fissure, image 55, is unchanged, dating back to 09/17/08. 2-mm nodule along the minor fissure, image 54 is also unchanged from 12/28/08. 2 mm right lower lobe medial basal segment, image 87 is new. 3 mm right lower lobe medial basal segment, image 89 is new. The peripheral right middle lobe pulmonary nodule seen on image 80 on the 05/03/2010 study is no longer present. Mild bibasilar scarring is unchanged. Multiple hepatic cysts are unchanged. The gallbladder is surgically absent. The remainder of the unenhanced visualized upper abdomen is otherwise unremarkable. There is no suspicious osseous abnormality. IMPRESSION: Multiple scattered new indeterminate 2-3 mm pulmonary nodules, as above. One nodule from the prior study has resolved. Multiple nodules are stable. These are all likely post-inflammatory, however continued follow-up is suggested to ensure stability or resolution of the newer nodules. Component Latest Ref Rng 04/27/2011 04/27/2011 04/27/2011 8:37 AM 8:37 AM 8:37 AM GLUCOSE, PLASMA (LAB) 60 - 99 mg/dL BUN, PLASMA (LAB) 6 - 20 mg/dL CREATININE PLASMA (LAB) 0.60 - 1.10 mg/dL TOTAL PROTEIN, PLASMA (LAB) 6.1 - 7.9 g/dL ALBUMIN, PLASMA (LAB) 3.5 - 4.7 g/dL CALCIUM, PLASMA (LAB) 8.6 - 10.2 mg/dL BILIRUBIN TOTAL 0.3 - 1.2 mg/dL ALK PHOS 53 - 141 U/L AST(SGOT) 15 - 41 U/L SODIUM, PLASMA (LAB) 134 - 143 mmol/L POTASSIUM, PLASMA (LAB) 3.4 - 5.0 mmol/L CHLORIDE, PLASMA (LAB) 97 - 108 mmol/L TOTAL CO2, PLASMA (LAB) 22 - 29 mmol/L ALT (SGPT) 13 - 48 U/L EGFR - UZBEK > 60 mL/min EGFR NON -UZBEK > 60 mL/min ANION GAP 4 - 11 mmol/L ANION GAP(ALB CORRECTED) 4 - 11 mmol/L MAGNESIUM,PLASMA 1.8 - 2.5 mg/dL 2.0 PHOSPHORUS, PLASMA (LAB) 2.4 - 4.7 mg/dL 3.3 VITAMIN D 25 HYDROXY 30 - 80 ng/mL 48 Component Latest Ref Rng 04/27/2011 8:37 AM GLUCOSE, PLASMA (LAB) 60 - 99 mg/dL 92 BUN, PLASMA (LAB) 6 - 20 mg/dL 16 CREATININE PLASMA (LAB) 0.60 - 1.10 mg/dL 0.72 TOTAL PROTEIN, PLASMA (LAB) 6.1 - 7.9 g/dL 7.2 ALBUMIN, PLASMA (LAB) 3.5 - 4.7 g/dL 3.9 CALCIUM, PLASMA (LAB) 8.6 - 10.2 mg/dL 9.5 BILIRUBIN TOTAL 0.3 - 1.2 mg/dL 0.5 ALK PHOS 53 - 141 U/L 79 AST(SGOT) 15 - 41 U/L 26 SODIUM, PLASMA (LAB) 134 - 143 mmol/L 140 POTASSIUM, PLASMA (LAB) 3.4 - 5.0 mmol/L 4.1 CHLORIDE, PLASMA (LAB) 97 - 108 mmol/L 105 TOTAL CO2, PLASMA (LAB) 22 - 29 mmol/L 29 ALT (SGPT) 13 - 48 U/L 21 EGFR - UZBEK > 60 mL/min > 60 EGFR NON -UZBEK > 60 mL/min > 60 ANION GAP 4 - 11 mmol/L 6 ANION GAP(ALB CORRECTED) 4 - 11 mmol/L 6 MAGNESIUM,PLASMA 1.8 - 2.5 mg/dL PHOSPHORUS, PLASMA (LAB) 2.4 - 4.7 mg/dL VITAMIN D 25 HYDROXY 30 - 80 ng/mL Visit with Dr. Sly garcia- Jul 20 2011- mammogram. [facility] DIGITAL MAMMO DIAG LEFT W/CAD: June 30, 2010 - CC and MLO view(s) were taken of the left breast. Prior study comparison: May 27, 2009, [facility] DIAGNOSTIC MAMMO LEFT w/CAD. May 21, 2008, [facility] DIG MAMMO DIAG LEFT. The patient is status post right mastectomy. No suspicious calcifications, masses, or architectural distortion present in the left breast. The images were obtained using full field digital mammography on the dedicated [employer] System with R2 CAD. Performed at [facility]. ASSESSMENT: Negative - Category 1 RECOMMENDATION: Follow-up diagnostic mammogram of the left breast in 1 year. A/P - doing well on arimidex. Negative CBE and no breast specific complaint. Patient will see Dr. Heart for CBE and mammogram early 2011. We review once again the side effects [...] yearly and medically managed if clinically indicated. No recent recurrence of abdominal pain or SBO event. Occasional PAT- followed by cardiology. RTC 6 months Low bone density - followed by endocrinology and receiving reclast. Thyroid nodule followed by endocrinology. Electronically signed by Stevan Velazquez MD at 7:07 PM PSTdocumented in this encounter Procedure Notes Other, Faculty - 09/20/2011 4:22 PM PSTAssociated Order(s): LAB REPORTSElectronically sign ed by Faculty Other at 09/20/2011 4:22 PM PSTdocumented in this encounter Miscellaneous Notes Scan - Other, Faculty - 08/02/2011 11:24 AM PSTElectronically signed by Faculty Other at 11:24 AM PSTdocumented in this encounter Plan of Treatment Not on filedocumented as of this encounter Procedures + +--------+ + + + | Procedure Name | Priori | Date/Time | Associated Diagnosis | Comments | | | ty | | | | + +--------+ + + + | LAB REPORTS | | 06/21/2011 | | Results for this | | | | 12:00 AM | | procedure are in the | | | | PST | | results section. | + +--------+ + + + documented in this encounter Results LAB REPORTS (06/21/2011 12:00 AM PST) + + + | Narrative | Performed At | + + + | | | + + + + + | Transcriptions | + + | Gisele Strong - 09/20/2011 4:22 PM PST | + + documented in this encounter Visit Diagnoses + + | Diagnosis | + + | Breast cancer (HCC) - Primary Malignant neoplasm of breast (female), unspecified site | + + documented in this encounter"
--- OUTSIDE RECORDS SUMMARY | ~2020-05-04 | XMS | Encounter Summary ---
Demographics + + + | Address | [address] | | | [place] [address] | + + + | Home Phone [...] + | Gene Gee | ECON | [address] | | | | | [place], | | | | | [place] [address] | | + + + + + Care Team Providers + +------+ + | Care Livestock Farm Manager Name | Role | Phone | [...] | Closed | | Surgery | | Nico | [facility] | | | | | | MD Ross | Surg [facility] | | | | | | [address] | [address] | | | | | | [address] | [address] | | | | | | [address] | for Health | | | | | | [place], [place] | and Healing, | | | | | | [address] | [address] | | | | | | Phone: | [place], [place] | | | | | | [phone] | [address] | | | | | | Fax: | Phone: | | | | | | [phone] | [phone] | | | | | | | Fax: | | | | | | | [phone] | +--------+--------+ + + + + Encounter Details +--------+---------+ + + + | Date | Type | Department | Care Team | Description | +--------+---------+ + + + | 04/15/ | Office | Digestive Health | Ross Currie, | Bowel Obstruction | | 2007 | Visit | Center at [facility] [address] | [address] | (HCC) (Primary Dx) | | | | [address] | [facility] | | | | | for [facility] and | [place], [place] | | | | | [facility] 2 | [address] | | | | | [place], [place] | [phone] | | | | | [address] | | | | | | [phone] | | | +--------+---------+ + + + [...] + + + | Blood Pressure | 120/67 | 04/15/2008 3:17 PM | | | | | PDT | | + + + + + | Pulse | 76 | 04/15/2008 3:17 PM | | | | | PDT | | + + + + + | Temperature | 36.9 C (98.4 F) | 04/15/2008 3:17 PM | | | | | PDT | | + + + + + | Respiratory Rate | 16 | 04/15/2008 3:17 PM | | | | | PDT | | + + + + + | Oxygen Saturation | - | - | | + + + + + | Inhaled Oxygen | - | - | | | Concentration | | | | + + + + + | Weight | 65.2 kg (143 lb 12.8 | 04/15/2008 3:17 PM | | | | oz) | PDT | | + + + + + | Height | - | - | | + + + + + | Body Mass Index | 23.39 | 12/30/2007 10:25 AM | | | | | PDT | | + + + + + documented in this encounter Progress Notes Ross Currie - 04/18/2008 9:28 AM PDTI was present with the resident during the history and exam. I discussed the case with the resident and agree with the findings and plan as d ocumented in the resident s note. I spent 30 minutes with Mrs Flynn and he nicholas in fac e to face time with >50% counseling Ross Currie M.D. [facility] ([facility]) Professor and Vice-Kettle Skimmer of Surgery [facility]reat[facility]/ HepatoBiliary and Foregut Working Group Mail Code [id number] [address] [place], [place]. [address] email: [email or web address] cruz - 04/15/2008 4:39 PM PDTBLUE SURGERY CLINIC NOTE ID/CC: Ms. Flynn is a 62 y.o. Woman with a history of multiple abdominal operations and in the pas t several years has had recurrent small bowel obstruction. She had an SBO once a year for t he past 3 years and now in the past 8 weeks she has had 3 obstructions, each of which requir ed hospitalization. HPI: Ms. Flynn is a 62 y.o. Woman with a history of multiple abdominal operations with severe ad hesions noted by one of her surgeons. She has had previous small bowel obstruction in 2004, October 2005, February 2007. Now, in the past 8 weeks she has had 3 separate SBO, all of which required hospitalization but not requiring surgery. Most recently was on 04/02/08, she was hospitalized for 5 days. During this hospitalization, a nasogastric tube was placed and she was put on bowel rest and the SBO resolved on its own. She was referred today by Morteza Reyna to discuss possible causes of these repeated obstructions and to discuss possible t reatments. OBJECTIVE: BP 120/67, Pulse 76, Temperature 36.9 C (98.4 F), Temperature source Oral, RR 16, Wt 65 .227 kg (143 lbs 12.8 oz)( < 3 %ile). Physical Exam: Gen: NAD Resp: CTAB CVS: RRR normal S1 and S2 Abd: soft, non-distended, mild tenderness in the lower quadrant ASSESSMENT/PLAN 62 y.o. Woman with recurrent small bowel obstructions. Unfortunately there is no surgical treatment that we can offer Ms. Flynn today. The team spent over an hour collectively couns eling Ms. Flynn and her about the pathophysiology of her bowel obstructions. She u nderstands that there is no prophylactic treatment, surgical or medical, that we can definit ively say will prevent these obstructions from occuring. A great deal of time was spent edu cating and reassuring the patient and her . She plans to call Dr. Reyna to get a GI r eferral to see if they have any recommendations or suggestions. At this point she will wait until she has another obstruction, at which point, if she requires surgery, Dr. Currie wi ll be happy to consult with her. Yuliana Ruth MS3 Agree with MS3 note above. Pt has a complex surgical history with increasing frequency of SBOs. Pt is here today to morteza fatima possible medical and surgical options to help prevent bowel obstructions. Pt was cou nseled that there are no good surgical or medical treatments to prevent future bowel obstruc tions from occuring. Pt will consider see a GI specialist to see if they have any suggestio ns. Pt was seen and examined with Dr. Currie, who agrees with the assessment and plan PHILLIP GOODEN MD [facility] [address] [facility], [address] [place] [phone] Pawruykcglknku signed by Phillip Gooden at 04/15/2008 7:16 PM PDTdocumented i n this encounter Miscellaneous Notes Scan - Other, Faculty - 04/15/2008 5:44 PM PDTAssociated Order(s): ORDERS OTHER Steffany will signed by Faculty Other at 04/15/2008 12:00 AM PDTdocumented in this encounter Plan of Treatment Not on filedocumented as of this encounter Procedures + +--------+ + + + | Procedure Name | Priori | Date/Time | Associated Diagnosis | Comments | | | ty | | | | + +--------+ + + + | ORDERS OTHER | | 04/15/2008 | | Results for this | | | | 5:44 PM | | procedure are in the | | | | PDT | | results section. | + +--------+ + + + documented in this encounter Results ORDERS OTHER (04/15/2008 5:44 PM PDT) + + + | Narrative | Performed At | + + + | | | + + + + + | Procedure Note | + + | Gisele Strong - 04/15/2008 5:44 PM PDT | + + documented in this encounter Visit Diagnoses + + | Diagnosis | + + | Bowel obstruction (HCC) - Primary Unspecified intestinal obstruction | + + documented in this encounter"
--- OUTSIDE RECORDS SUMMARY | ~2020-05-04 | XMS | Encounter Summary ---
Demographics + + + | Address | [address] | | | [place] [address] | + + + | Home Phone [...] + | Gene Gee | ECON | [address] | | | | | [place], | | | | | [place] [address] | | + + + + + Care Team Providers + +------+ + | Care Boat Carpenter Name | Role | Phone | + +------+ + | Antony Ribera MD | PCP | | + +------+ + Reason for Visit + +--------+ + | Reason | Onset | Comments | | | Date | | + +--------+ + | Lab findings, | 06/22/ | | | teaching, guidance, | 2010 | | | and counseling | | | + +--------+ + Encounter Details +--------+ + + + + | Date | Type | Department | Care Team | Description | +--------+ + + + + | 06/22/ | Telephone | Cardiology General | Monique Middleton, | Lab findings, | | 2010 | | at [facility] [address] | TAIL WORKER | teaching, guidance, | | | | [facility] for | | and counseling | | | | Health and Healing, | | | | | | [facility] | | | | | | Floor [place], [place] | | | | | | [address] | | | | | | [phone] | | | +--------+ + + + [...] this encounter Miscellaneous Notes Telephone Encounter - Ki Gaytan DO - 06/22/2011 12:15 PM PSTIf she can not tolera te statins, there are several alternative. You can consider starting with ezetimibe 10 mg po qd. Thanks, Ki elephone Denny rutledge - Monique Middleton Np - 06/22/2011 12:06 PM PSTSpoke with Adriana about her recent lip id numbers. They are higher than ever. She has tried all statins and has had severe GI dis tress with all of them. She has used red rice yeast but can only sprinkle it on her food, o therwise causes diarrhea. Will discuss with Dr Gaytan and get his suggestions.Electronical ly signed by Monique Middleton Np at 06/22/2011 12:08 PM PSTdocumented in this encounter Plan of Treatment Not on filedocumented as of this encounter Visit Diagnoses Not on filedocumented in this encounter"
--- OUTSIDE RECORDS SUMMARY | ~2020-05-04 | XMS | Encounter Summary ---
Demographics + + + | Address | [address] | | | [place] [address] | + + + | Home Phone [...] + | Gene Gee | ECON | [address] | | | | | [place], | | | | | [place] [address] | | + + + + + Care Team Providers + +------+ + | Care Broadcast Operations Engineer Name | Role | Phone | + +------+ + | Antony Ribera MD | PCP | | + +------+ + Reason for Visit + +--------+ + | Reason | Onset | Comments | | | Date | | + +--------+ + | Refill Request | 04/04/ | | | | 2018 | | + +--------+ + Encounter Details +--------+--------+ + + + | Date | Type | Department | Care Team | Description | +--------+--------+ + + + | 04/04/ | Refill | Surgical Oncology | Jorden Womack MD | Refill Request | | 2018 | | at [facility] [address] | [address] | | | | | Ave [facility] | [place], [place] | | | | | Health and Healing, | [address] | | | | | [address] | [phone] | | | | | [place], [place] | | | | | | [address] | | | | | | [phone] | | | +--------+--------+ + + + [...] Telephone Encounter - Claribel Garza RN - 04/04/2018 1:13 PM PDTScript for talisha anthony de la cruz mailed to patient. documented in this encounter Plan of Treatment Not on filedocumented as of this encounter Visit Diagnoses + + | Diagnosis | + + | Malignant neoplasm of right female breast, unspecified estrogen receptor status, | | unspecified site of breast (HCC) - Primary | + + documented in this encounter"
--- OUTSIDE RECORDS SUMMARY | ~2020-05-04 | XMS | Encounter Summary ---
Demographics + + + | Address | [address] | | | [place] [address] | + + + | Home Phone [...] + | Gene Gee | ECON | [address] | | | | | [place], | | | | | [place] [address] | | + + + + + Care Team Providers + +------+ + | Care Unattended Ground Sensor Specialist Name | Role | Phone | + +------+ + | Alec Hill MD | PCP | | + +------+ + Encounter Details +--------+ + + + + | Date | Type | Department | Care Team | Description | +--------+ + + + + | 07/26/ | Ancillary | Registration [id number] | Stevan Velazquez, | | | 2007 | Registratio | [address] | [address] | | | | n | Driss Mailcode: [id number] | [place], [place] | | | | | [place], [place] | [address] | | | | | [address] | [phone] | | | | | [phone] | | | +--------+ + + + [...]
--- OUTSIDE RECORDS SUMMARY | ~2020-05-04 | XMS | Encounter Summary ---
Demographics + + + | Address | [address] | | | [place] [address] | + + + | Home Phone [...] + | Gene Gee | ECON | [address] | | | | | [place], | | | | | [place] [address] | | + + + + + Care Team Providers + +------+ + | Care Retail Associate Name | Role | Phone | + +------+ + | Antony Ribera MD | PCP | | + +------+ + Reason for Visit + + + | Reason | Comments | + + + | Post-discharge | R breast recon with TE | | follow-up | | + + [...] | | | | | | | [facility] | | | | | | | Health and | | | | | | | Healing, | | | | | | | Building [address], | | | | | | | 5th Floor | | | | | | | [place], [place] | | | | | | | [address] | | | | | | | Phone: | | | | | | | [phone] | +--------+--------+ + + + + Encounter Details +--------+---------+ + + + | Date | Type | Department | Care Team | Description | +--------+---------+ + + + | 07/22/ | Office | Plastic and | Kelsi Lopez | Acquired Absence of | | 2012 | Visit | Reconstructive | MD Sudhir | Breast (Primary Dx) | | | | Surgery at [facility] [address] | | | | | [address] [facility] | | | | | | for Health and | | | | | | Healing, [address], | | | | | | 5th Floor | | | | | | [place], [place] | | | | | | [address] | | | | | | [phone] | | | +--------+---------+ + + + [...] encounter Progress Notes Kelsi Lopez MD - 07/22/2012 1:31 PM PST3 weeks s/p R mastectomy and TE reconstruct ion on 06/26/12 Procedure Performed: Placement of right subpectoral tissue distribution field engineer 450 mL [place] Siltex Contour Profile distribution field engineer, reference #[id number], serial #[id number] , f illed to 250 mL intraoperatively 03/19/07 Mastectomy specimen: 550 g S: Doing well minimal pain. Back to most normal activities. Denies fevers. O: Right breast incision C/D/I s erythema, possible small seroma inferomedially over implan t. Otherwise no fluid collections. Edema resolving. Implant palpable and in good position. A/P: Doing well -RTC 1 week for 30 minute visit with Santiago Quijano to train for fills. partial ly coached today. -Interested in symmetry procedure at time of implant exchange - mastopexy -Surgery request entered for next phase of reconstruction. Will likely have procedure sched uled with one of my colleagues since I will not be here when the expansion is complete. Expl ained this to the patient today. -Filled w 50 mL on R taking total volume today to 300 mL from 250 mL. Tolerated without gera n. -Volume goal - 500-550 mL, similar to mastectomy weight. 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
--- OUTSIDE RECORDS SUMMARY | ~2020-05-04 | XMS | Encounter Summary ---
Demographics + + + | Address | [address] | | | [place] [address] | + + + | Home Phone [...] + | Gene Gee | ECON | [address] | | | | | [place], | | | | | [place] [address] | | + + + + + Care Team Providers + +------+ + | Care Jukebox Checker Name | Role | Phone | + +------+ + | Antony Ribera MD | PCP | | + +------+ + Encounter Details +--------+ + + + + | Date | Type | Department | Care Team | Description | +--------+ + + + + | 08/21/ | Abstract | Cardiology | Elijah Whalen, | | | 2017 | | Arrhythmia at [facility] | [address] | | | | | [address] | [address] | | | | | [facility] | [place], [place] | | | | | and Healing, | [address] | | | | | [facility] | [phone] | | | | | Floor [place], [place] | | | | | | [address] | | | | | | [phone] | | | +--------+ + + + [...]
--- OUTSIDE RECORDS SUMMARY | ~2020-05-04 | XMS | Encounter Summary ---
Demographics + + + | Address | [address] | | | [place] [address] | + + + | Home Phone [...] + | Gene Gee | ECON | [address] | | | | | [place], | | | | | [place] [address] | | + + + + + Care Team Providers + +------+ + | Care Light Truck Driver Name | Role | Phone | + +------+ + | Antony Ribera MD | PCP | | + +------+ + Reason for Visit + + + | Reason | Comments | + + + | Osteoporosis | | + + + AUTH/CERT +--------+--------+ [...] | | | | | | | Story | | | | | | | [id number] | | | | | | | [facility] | | | | | | | [place], | | | | | | | [place] [address] | | | | | | | Phone: | | | | | | | [phone] | | | | | | | Fax: | | | | | | | [phone] | +--------+--------+ + + + + Encounter Details +--------+---------+ + + + | Date | Type | Department | Care Team | Description | +--------+---------+ + + + | 12/29/ | Office | Jonh Rudolph | Tapan Horowitz MD | Disorder of Bone and | | 2007 | Visit | Diabetes Health | [address] | Cartilage, | | | | [facility] | [address] Na[address] [place], | Unspecified (Primary | | | | [address] | [place] [address] | Dx) | | | | [address] | [phone] | | | | | Physician's | | | | | | [address], 1st floor | | | | | | [place], [place] | | | | | | [address] | | | | | | [phone] | | | +--------+---------+ + + + [...] + + + | Blood Pressure | 111/67 | 12/30/2007 10:25 AM | | | | | PDT | | + + + + + | Pulse | 66 | 12/30/2007 10:25 AM | | | | | PDT | | + + + + + | Temperature | - | - | | + + + + + | Respiratory Rate | 10 | 12/30/2007 10:25 AM | | | | | PDT | | + + + + + | Oxygen Saturation | - | - | | + + + + + | Inhaled Oxygen | - | - | | | Concentration | | | | + + + + + | Weight | 67.1 kg (148 lb) | 12/30/2007 10:25 AM | | | | | PDT | | + + + + + | Height | 167 cm (5' 5.75") | 12/30/2007 10:25 AM | | | | | PDT | | + + + + + | Body Mass Index | 24.07 | 12/30/2007 10:25 AM | | | | | PDT | | + + + + + documented in this encounter Patient Instructions Patient Instructions Tapan Horowitz - 12/30/2007 10:52 AM PDTBisphosphonate Medication Please take your oral bisphosphonate medication (Fosamax, Actonel, Boniva) on an empty stom ach with 8 ounces of water only (no coffee, milk, or juice). Do not lie down or take any ot her medication, food, or beverage for the next 30 minutes (60 minutes for Boniva) after swal lowing the pill. If you experience chest, neck, throat, or abdominal pain after swallowing the pill please call your doctor. Bisphosphonate medications are very rarely associated wit h a dental condition called osteonecrosis of the jaw. Please see your dentist on a regular b asis and let him/her know that you are taking a bisphosphonate medication. Calcium and Vitamin D Supplementation Calcium and Vitamin D are extremely important for good skeletal health. Calcium and Vitami n D help prevent osteoporosis and fractures. Calcium can be obtained from certain food produ cts and in the form of supplements. The recommended total amount of calcium per day required for a person older than 50 is 1200 mg. You should not exceed 2500 mg a day of total calciu m in the form of food and supplements. Vitamin D is obtained from nutritional supplements. You have been provided a calcium and v itamin D supplement guide for reference. documented in this encounter Progress Notes Tapan Horowitz - 12/30/2007 11:04 AM PDTFormatting of this note might be different from the o riginal. Clinic: Bone [facility] Mineral Referring provider LANA RICHEY MD [address] [place] [address] Reason for visit: Osteopenia 62 yo woman diagnosed with right breast cancer in Feb 2007 treated with mastectomy and chem otherapy had a bone density showing osteopenia. She is on arimidex. She started Boniva 3 mon ths ago and except for one dose, has tolerated it well. HPI Past history of fractures: no Recent falls: no Use of steroid medications: no Age of menopause: 46 History of estrogen supplementation: no History of renal stones: no History of GI complaints or malabsorption: diverticulitis, gerd Past treatment for osteoporosis: on boniva Height loss: no Weight history: n/a Bone Density Hx: Date: 09/05/07 Spine Density: -2.1 Hip Density: -1.1 Percent change from prior testing: n/a Current Daily Calcium intake: lactose intolerant Current Daily Vitamin D intake: 2000 iu PMH Past Medical History Diagnosis Date Sjogrens Syndrome [...] 12/30/2007 DXA 09/05/07: L -2.1 H -1.1 MEDS Current outpatient medications Medication Sig anastrozole (ARIMIDEX) 1 mg Oral [...] 1 capsule (100 mg) by oral ro atka once daily at bedtime as needed famotidine (PEPCID) 40 mg Oral Tablet one daily Fish Oil-DHA-EPA (FISH OIL) 1,200-144-216 mg Oral Capsule one daily Flaxseed Oil Misc.(Non-Drug; Combo Route) Oil 1000 mg daily Glucosamine 1,000 mg Oral Tablet one daily ibandronate (BONIVA) 150 mg Oral Tablet once monthly lorazepam 1 mg Oral Tablet take 1 tablet (1 mg) by oral route one time daily before bed time as needed MULTIVITAMIN OR one daily PROTONIX 40 MG TAB take 1 tablet (40mg) by oral route once daily PULMICORT 0.25 MG/2 ML INHL NEBU RESTASIS OPHT ou tid SPIRIVA WITH HANDIHALER 18 MCG & INHALATION CAPS inhale the contents of one capsule (18 mcg) by inhalation route once daily Vitamin A-Vitamin C-Vit E-Min (ANTIOXIDANT FORMULA) Oral Capsule take 1 capsule by oral route once daily with food VITAMIN D ORAL 2000 IU daily SH History Social History Marital Status: Spouse Name: N/A Number of Children: N/A Years of Education: N/A Occupational History retired 2000 Social History Main Topics Tobacco Use: Never Alcohol Use: No Drug Use: No Sexually Active: Not on file Other Topics Concern Not on file Social History Narrative No narrative on file Exercise frequency: active Tobacco: no Alcohol: no FH Family History Problem Relation Diabetes Heart Additional Family History Mother osteoporosis/hip fracture Parental history of osteoporotic fracture: mother with hip fracture ROS: As noted in HPI. In addition, positive for multiple constitutional symptoms. A full 13 system ROS was reviewed; it is scanned into the patient's electronic record. PE Filed Vitals: 12/30/2007 10:25 AM BP: 111/67 Pulse: 66 Resp: 10 Height: 1.67 m (5' 6") Weight: 67.132 kg (148 lbs) General: Pleasant, no acute distress Head: Normocephalic, atraumatic Eyes: PERRL, EOMI, No lid lag, No stare ENT: Tympanic membranes pearly white bilaterally, No cervical lymphadenopathy, Oral mucosa without exudates, Thyroid 15 gms in size without nodules or tenderness Respiratory: Clear to auscultation Musculoskeletal: No vertebral spine tenderness to palpation, No kyphosis Cardiovascular: Regular without murmurs, rubs Gastrointestinal: Abdomen soft, nontender, nondistended, no hepatosplenomegaly, positive samir wel sounds Extremities: No lower extremity edema Neurologic: No tremor with outstretched hands, 5/5 upper extremity strength bilaterally, 5/ 5 lower extremity strength bilaterally, 1+ patellar reflexes bilaterally, 1+ biceps reflexes bilaterally, alert and oriented x 3 Skin: No acanthosis, no facial plethora, no supraclavicular fat pads, no abdominal striae, no ecchymosis Psychiatric: Patient is pleasant and conversational Labs: Vit d 46 A/p 1.Osteopenia: This pt has low bone mass and is at risk for further bone loss and fractures because of her use of arimidex and maternal history of hip fracture. Her vit D level is norm al at 46 ng/ml. I reviewed her calcium intake carefuly. The pt is on a lot of supplements. I recommended calcium citrate b/c it is better absorbed than calcium carbonate in pts on prot on pump inhibitors. She knows not to exceed 2500 mg daily of calcium in food and supplements . I support the use of bisphosponates while on aromatase inhibitors. Since the pt is Boniva and tolerating it, then we will continue with that therapy. Pt takes Boniva in the appropria te manner. Reviewed with patient the rare side effect of osteonecrosis of the jaw and to see a dentist on a routine basis and inform the dentist that the patient is using bisphosphonat e therapy. I will also check a TSH and PTH to evaluate for thyroid disorders and hyperparath yroidism. documented in this encounter Plan of Treatment Not on filedocumented as of this encounter Results PTH, SERUM (08/14/2008 7:50 AM PST) + + + + + + | Component | Value | Ref Range | Performed | Pathologist | | | | | At | Signature | + + + + + + | PTH, SERUM | See cmnt | pg/mL | | | + + + + + + + + | Specimen | + + | Blood - Blood | + + + + + | Narrative | Performed At | + + + | Test rescheduled | | + + + + + + + + | Performing | Address | City/State/Zipcode | Phone Number | | Organization | | | | + + + + + | [facility] | [address] | [place] [address] | | | LABORATORY | | | | + + + + + documented in this encounter Visit Diagnoses + + | Diagnosis | + + | Disorder of bone and cartilage, unspecified - Primary | + + documented in this encounter
--- OUTSIDE RECORDS SUMMARY | ~2020-05-04 | XMS | Clinical Summary ---
Demographics + + + | Address | [address] | | | [place] [address] | + + + | Home Phone | | + + + | Preferred Language | Unknown | + + + | Marital Status | | + + + | Spiritism Affiliation | CHR | + + + | Race | White | + + + | Ethnic Group | Not or | + + + Author + + + | Author | [facility] | + + + | Organization | [facility] | + + + | Address | Unknown | + + + | Phone | Unavailable | + + + Support + + + + + | Name | Relationship | Address | Phone | + + + + + | Gene Dericill | ECON | [address] | | | | | [place], | | | | | [place] [address] | | + + + + + Care Team Providers + +------+ + | Care Report Writer Name | Role | Phone | + +------+ + | Alec Hill MD | PCP | | + +------+ + Source Comments [facility] is fully live on both [facility] Amb[facility] and [facility] InPatient.[facility] Allergies + + + + + + [...] + + + + | Duloxetine | Edema | | 08/07/19 | | | | | | 19 [...] 0 | | | Activ | | C-Vit [...] | | + + + +---------+------+------+-------+ | rabeprazole | Take 20 mg by mouth | | 0 | | | Activ | | (ACIPHEX) 20 mg Oral | every twelve hours. | | | | | e | | Tablet, Delayed | | | | | | | | Release (E.C.) | | | | | | | + + + +---------+------+------+-------+ | ezetimibe (ZETIA) | Take 10 mg by mouth | | 0 | | | Activ | | 10 mg Oral Tablet | once daily. | | | | | e | + + + +---------+------+------+-------+ | LORAZEPAM 1 mg | Take 0.5 tablets by | | 0 | 11/2 | | Activ | | Oral tablet | mouth once daily at | | | 6/20 | | e | | | bedtime as needed. | | | 12 | | | + + + +---------+------+------+-------+ | | Instill 1 drop into | | 0 | | | Activ | | carboxymethylcellulo | both eyes as needed. | | | | | e | | se 0.5 % ophthalmic | | | | | | | | dropperette | | | | | | | + + + +---------+------+------+-------+ | lactobac cmb | Take by mouth once | | 0 | | | Activ | | #1-teh-hswrkgudgv | daily. | | | | | e | | 300-250 million | | | | | | | | cell-mg oral capsule | | | | | | | + + + +---------+------+------+-------+ | ofloxacin 0.3 % | Instill 1 drop into | | 0 | 06/0 | | Activ | | ophthalmic drops | both eyes as needed. | | | 9/20 | | e | | | | | | 16 | | | + + + +---------+------+------+-------+ | polyethylene | Mix 17 g in liquid | | 0 | | | Activ | | glycol (MIRALAX) 17 | and drink once | | | | | e | | gram/dose oral | daily. | | | | | | | powder | | | | | | | + + + +---------+------+------+-------+ | dofetilide 250 mcg | Take 250 mcg by | | 0 | | | Activ | | oral capsule | mouth two times | | | | | e | | | daily. Do NOT open | | | | | | | | capsule. Swallow | | | | | | | | whole. | | | | | | + + + +---------+------+------+-------+ | potassium chloride | Take 20 mEq by mouth | | 0 | | | Activ | | (KLOR-CON 10) 10 | once daily. | | | | | e | | mEq oral tablet | | | | | | | | extended release | | | | | | | + + + +---------+------+------+-------+ | apixaban (ELIQUIS) | Take 5 mg by mouth | | 0 | | | Activ | | 5 mg oral tablet | two times daily. | | | | | e | + + + +---------+------+------+-------+ | cholecalciferol | Take 3,000 Units by | | 0 | | | Activ | | (Vitamin D3) | mouth once daily. | | | | | e | | (VITAMIN D3) 1,000 | | | | | | | | unit oral capsule | | | | | | | + + + +---------+------+------+-------+ | magnesium oxide | Take by mouth once | | 0 | | | Activ | | 250 mg oral tablet | daily. | | | | | e | + + + +---------+------+------+-------+ | losartan 100 mg | Take 100 mg by mouth | | 0 | | | Activ | | oral tablet | once daily. | | | | | e | + + + +---------+------+------+-------+ | SPIRIVA RESPIMAT | Inhale 1 puff once | 12 g | 3 | 05/1 | | Activ | | 2.5 mcg/actuation | daily. | | | 5/20 | | e | | inhalation mist | | | | 19 | | | + + + +---------+------+------+-------+ | levalbuterol 45 | Inhale 1-2 puffs by | 1 | 6 | 05/1 | | Activ | | mcg/actuation | mouth every six | Inhaler | | 5/20 | | e | | inhalation HFA | hours as needed. | | | 19 | | | | aerosol | Indications: | | | | | | | inhalerIndications: | bronchospasm | | | | | | | bronchospasm | prevention | | | | | | | prevention | | | | | | | + + + +---------+------+------+-------+ | budesonide | Inhale 2 puffs by | 3 | 6 | 05/1 | | Activ | | (PULMICORT | mouth two times | Inhaler | | 5/20 | | e | | FLEXHALER) 180 | daily. Indications: | | | 19 | | | | mcg/actuation | Controller | | | | | | | inhalation aerosol | Medication for | | | | | | | powdr breath | Asthma | | | | | | | activatedIndications | | | | | | | | : maintenance | | | | | | | | therapy for asthma | | | | | | | + + + +---------+------+------+-------+ | ipratropium 0.03 % | Instill 2 sprays | 30 mL | 11 | 09/0 | | Activ | | nasal | into each nostril | | | 9/20 | | e | | spray,non-aerosol | three times daily. | | | 19 | | | + + + +---------+------+------+-------+ | fluticasone | Instill 1 spray into | 16 each | 5 | 12/0 | | Activ | | propionate (FLONASE) | each nostril two | | | 4/20 | | e | | 50 mcg/actuation | times daily. | | | 19 | | | | nasal | | | | | | | | spray,suspensionIndi | | | | | | | | cations: Chronic | | | | | | | | sinusitis, | | | | | | | | unspecified location | | | | | | | + + + +---------+------+------+-------+ | ipratropium 0.02 % | Inhale 2.5 mL(ONE | 140 mL | 3 | 05/2 | | Activ | | inhalation solution | AMPULE) via | | | 7/20 | | e | | | nebulizer every six | | | 20 | | | | | hours as needed | | | | | | | | (Shortness of | | | | | | | | breath). | | | | | | + + + +---------+------+------+-------+ | levalbuterol 1.25 | Inhale 3 mL every | 336 mL | 6 | 05/2 | | Activ | | mg/3 mL inhalation | six hours as needed | | | 9/20 | | e | | solution for | (shortness of | | | 20 | | | | nebulizationIndicati | breath). Code: | | | | | | | ons: acute asthma | J45.909 Indications: | | | | | | | attack | asthma attack | | | | | | + + + +---------+------+------+-------+ | bisoprolol 10 mg | Take 10 mg by mouth | | 0 | | | Activ | | oral tablet | once daily. | | | | | e | + + + +---------+------+------+-------+ Active Problems + + + | Problem | Noted Date | + + + | Chronic diastolic heart failure due to valvular disease | 11/26/2019 | + + + + + | Overview: MR and TR | + + + + + | Age-related osteoporosis without current pathological fracture | 08/07/2018 | + + + + + | Overview: [facility]aughn ; September 2018 | | DXA 02/04/20: L -1.3 Fem Neck -2.2 | | DXA 06/13/17: L -1.4 H -1.5 | | DXA 06/02/15: L -1.6 H -1.9 | | DXA 06/06/13; L -1.6 H -1.9 | | DXA 04/28/11: L -1.8 H -1.8 | | DXA 01/27/10: L -1.9 H -1.6 | | DXA 12/28/08: L -1.9 H -1.5 | + + + + + | Paroxysmal atrial fibrillation | 11/14/2016 | + + + | Asthma | 02/03/2014 | + + + | Sjogren's syndrome | 09/08/2008 | + + + | Breast cancer, right | 05/21/2008 | + + + Resolved Problems + + + [...] 5 | + + + + | Disorder of bone and cartilage | 12/30/19 | | | | 08 | 9 | + + + + + + [...] -1.5 | + + + + + + | Lymphedema | [...] + + + | Atrial tachycardia | | | | | | 7 | + + + + + + | Overview: <PROVIDER>ROBERT TUCKER | + + Encounters +--------+ + + + + | Date | Type | Specialty | Care Team | Description | +--------+ + + + + | 04/20/ | Document-Sc | Endocrinology | Tapan Horowitz MD | | | 2020 | anned | Diabetes & | | | | | | Metabolism | | | +--------+ + + + + | 03/19/ | Document-Sc | Endocrinology | Tapan Horowitz MD | | | 2020 | anned | Diabetes & | | | | | | Metabolism | | | +--------+ + + + + | 03/16/ | MyChart | Endocrinology | Tapan Horowitz MD | RE: DEXA scan | | 2019 | Encounter | Diabetes & | | results from January | | | | Metabolism | | 2019 | +--------+ + + + + | 03/15/ | MyChart | Endocrinology | Tapan Horowitz MD | RE: DEXA scan | | 2019 | Encounter | Diabetes & | | results from | | | | Metabolism | | 02/04/2020. [facility] | | | | | | [facility]. | | | | | | [place] | +--------+ + + + + | 03/15/ | Telephone | Endocrinology | Tapan Horowitz MD | Care Coordination | | 2019 | | Diabetes & | | | | | | Metabolism | | | +--------+ + + + + | 02/24/ | Telephone | Pulmonary Disease | Juana Kilgoer MD | | 2019 | | | | | +--------+ + + + + | 02/22/ | Telephone-S | Surgical Oncology | Henri Heart, | | | 2019 | cheduled | | | | +--------+ + + + + | 02/10/ | MyChart | Endocrinology | Tapan Horowitz MD | bone density | | 2019 | Encounter | Diabetes & | | | | | | Metabolism | | | +--------+ + + + + | 02/10/ | Document-Sc | Endocrinology | Tapan Horowitz MD | | | 2020 | anned | Diabetes & | | | | | | Metabolism | | | +--------+ + + + + | 02/09/ | MyChart | Endocrinology | Tapan Horowitz MD | RE: DEXA scan | | 2019 | Encounter | Diabetes & | | results | | | | Metabolism | | | +--------+ + + + + | 02/02/ | MyChart | Endocrinology | Tapan Horowitz MD | labs | | 2020 | Encounter | Diabetes & | | | | | | Metabolism | | | +--------+ + + + + | 02/02/ | Document-Sc | Endocrinology | Tapan Horowitz MD | | | 2020 | anned | Diabetes & | | | | | | Metabolism | | | +--------+ + + + + from Last 3 Months Immunizations + + + + | Name | Administration Dates | Next Due | + + + + | Influenza, | 08/07/2018 | | | injectable, | | | | quadrivalent, | | | | preservative free | | | | (IIV4) | | | + + + + | Influenza, seasonal, | 05/03/2017 | | | intradermal, | | | | preservative free | | | + + + + | Influenza, split | 04/17/2008 | | + + + + | Pneumococcal 23 | 05/03/2017 | | + + + + Family History + + +------+ + | Medical History | Relation | Name | Comments | + + +------+ + | Breast Cancer | Maternal | | | | | Cousin | | | + + +------+ + | Additional Family | Mother | | osteoporosis/hip fracture | | History | | | | + + +------+ + | Diabetes | Other | | | + + +------+ + | Heart Disease | Other | | | + + +------+ + + +------+--------+ + | Relation | Name | Status | Comments | + +------+--------+ + | Maternal Cousin | | | | + +------+--------+ + | Mother | | | | + +------+--------+ + | Other | | | | + +------+--------+ + | Other | | | | + +------+--------+ + [...] + + + + | Height | 165.5 cm (5' 5.16") | 11/27/2018 10:20 AM | | | | | PDT | | + + + + + | Body Mass Index | 23.91 | 11/27/2018 10:20 AM | | | | | PDT | | + + + + + Plan of Treatment + + + + + | Health Maintenance | Due Date | Last | Comments | | | | Done | | + + + + + | Influenza (Flu) | | 02/28/20 | | | vaccination (#1) | 0 | 19, | | | | | 08/07/19 | | | | | 19, | | | | | 04/02/20 | | | | | 18, | | | | | Addition | | | | | al | | | | | history | | | | | exists | | + + + + + | Pneumococcal | Completed | 05/03/20 | | | vaccination | | 17, | | | | | 03/25/20 | | | | | 15, | | | | | 03/25/20 | | | | | 15 | | + + + + + Implants + +------+--------+ +--------+--------+--------+ | Implanted | Type | Area | Manufacture | Device | Shelf | Model | | | | | r | | Expira | / | | | | | | Identi | tion | Serial | | | | | | fier | Date | / Lot | + +------+--------+ +--------+--------+--------+ | Necedah 450cc 12.7x10.8x7.0cm | | Right: | | | 07/15/ | 354-62 | | Style: [id number]: Qty: 1 | | Chest | | | 2015 | 13 | | on 06/26/2012 by John, | | | | | | /[id number] | | Kelsi Peguero MD at [facility] | | | | | | [phone] | | INPATIENT REV LOC | | | | | | | | | | | | | | /[id number] | | | | | | | | 41 | + +------+--------+ +--------+--------+--------+ + + | Description:Filled with 250ml | | of 0.9% normal saline | + + + +---+--------+ +---+--------+--------+ | Implant Timbo Style 20 | | Right: | ALLERGAN | | 05/06/ | 20-450 | | High Profile 450cc - | | Chest | | | 2017 | | | [id number]: Qty: 1 on | | | | | | /[id number] | | 10/04/2012 by Alla | | | | | | 111 / | | Errol Holman MD at [facility] | | | | | | | | INPATIENT REV LOC | | | | | | | + +---+--------+ +---+--------+--------+ + + | Description:soaked in Triple | | antibiotic solution mixed | | with Saline0.9% Nacl (500 mL) | | lot [id number] Jul 31)Dolores | | 1 gram exp Gentamycin | | 80 mg Exp Nov 13 | + + Procedures + +--------+ + + + | [...] + + from Last 3 Months Results VITAMIN D, 25-HYDROXY, SERUM (02/03/2020) + [...] | + + + + + | [facility] | [address] | [place], [place] | | | | [address] | [address] | | + + + + + [...] | + + + + + | [facility] | [address] | [place], [place] | | | | [address] | [address] | | + + + + + from Last 3 Months Insurance + +--------+ +--------+ [...] + +--------+ | MEDICARE | MEDICA | [id number] | 08/16/19 | [phone] | [address] | Medica | | | RE A & | | 09-Pre | 1 | [phone] | re | | | B | | sent | | [place], [place] | | | | | | | | [address] | | + +--------+ +--------+ + +--------+ | MODA MEDICARE | MODA | [id number] | | [phone] | [address] | POS | | SUPPLEMENT | MEDICA | | [phone] | 4 | [id number] | | | | RE | | esent | | [place], | | | | SUPPLE | | | | [place] [address] | | | | MENT | | | | | | + [...] Person | Self | / | | [address] | | | al/Fam | | 1946 | [phone] | [place] [address] [place], | | | yin | | | [address] (Home) | [place] [address] | + +--------+ +--------+ + + Advance Directives + + + + + | Type | Date Recorded | Patient | Explanation | | | | Building Construction Superintendent | | + + + + + | Advance | | | | | Directives and | | | | | Living Will | | | | + + + + + | Power of | | | | | Teen Counselor | | | | + + + + + + + + + + | Code Status | Date | Date | Comments | | | Activated | Inactivated | | + + + + + | Full Code | 10/04/2012 | 10/05/2012 | | | | 11:16 AM | 2:58 PM | | + + + + + + + + +---+ | | | | | + + + +---+ | Full Code | 06/26/2012 | 06/27/2012 | | | | 5:36 PM | 4:39 PM | | + + + +---+ + + + +---+ | | | | | + + + +---+ | Full Code | 06/26/2012 | 06/26/2012 | | | | 12:37 PM | 5:36 PM | | + + + +---+ + + + +---+ | | | | | + + + +---+ | Full Code | 10/31/2009 | 11/04/2009 | | | | 11:59 PM | 3:44 PM | | + + + +---+ + + + +---+ | | | | | + + + +---+ | Full Code | 09/17/2008 | 09/18/2008 | | | | 11:30 AM | 1:54 AM | | + + + +---+
--- OUTSIDE RECORDS SUMMARY | ~2020-05-04 | XMS | Encounter Summary ---
Demographics + + + | Address | [address] | | | [place] [address] | + + + | Home Phone | | + + + | Preferred Language | Unknown | + + + | Marital Status | | + + + | Church Affiliation | 1013 | + + + | Race | White | + + + | Ethnic Group | Not or | + + + Author + + + | Author | [facility] | | | and [place] | + + + | Organization | [facility] | | [...] Team Providers + +------+ + | Care Weight Shifter Name | Role | Phone | + +------+ + PCP | Unavailable | + +------+ + Encounter Details +--------+ + + + + | Date | Type | Department | Care Team | Description | +--------+ + + + + | 08/13/ | Hospital | [facility] GENERIC IP | Conversion | Pain | | 2018 | Encounter | CONVERSION DEP [address] | Transaction, | | | | | [address] | Provider Unknown | | | | | [place] | | | | | | [address] | (Fax) | | | | | [phone] | | | +--------+ + + + [...] + + +---------+ + + | | Place 1 drop into | | 0 | 07/29/19 | | | carboxymethylcellulo | both eyes 3 (three) | | | 18 | | | se (REFRESH TEARS) | times daily as | | | | | | 0.5% ophthalmic | needed. | | | | | | solution | | | | | | + + + +---------+ + + | fluticasone | 1 spray by Each Nare | | 0 | 07/29/19 | | | (FLONASE) 50 | route 2 (two) times | | | 18 | | | mcg/nasal spray | daily. | | | | | + + + +---------+ + + | LORazepam (ATIVAN) | Take 0.5 mg by | | 0 | 06/10/20 | | | 1 mg tablet | mouth. | | | 12 | | + + + +---------+ + + | ofloxacin | 1 drop. | | 0 | 12/23/19 | | | (OCUFLOX) 0.3% | | | | 16 | | | ophthalmic solution | | | | | | + + + +---------+ + + | RABEprazole | Take 20 mg by mouth | | 0 | 07/29/19 | | | (ACIPHEX) 20 mg EC | 2 (two) times daily. | | | 18 | | | tablet | | | | | | + + + +---------+ + + | tiotropium | Inhale 18 mcg into | | 0 | 07/29/19 | | | (SPIRIVA HANDIHALER) | the lungs daily. | | | 18 | | | 18 mcg inhalation | | | | | | | capsule | | | | | | + + + +---------+ + + | budesonide | Inhale 3 puffs into | | 0 | 07/29/19 | | | (PULMICORT | the lungs 2 (two) | | | 18 | 9 | | FLEXHALER) 180 | times daily. | | | | | | mcg/puff inhaler | | | | | | + + + +---------+ + + | ezetimibe (ZETIA) | Take 1 tablet by | | 0 | 06/18/20 | | | 10 mg tablet | mouth daily. | | | 17 | 9 | + + + +---------+ + + | ipratropium | 1 spray by Each Nare | | 0 | 07/29/19 | | | (ATROVENT) 0.03% | route 3 (three) | | | 18 | 9 | | nasal spray | times daily. | | | | | + + + +---------+ + + | rivaroxaban | | | 0 | 04/05/20 | | | (XARELTO) 20 mg | | | | 17 | 9 | | tablet | | | | | | + [...] | | | | | [place] [address] | | | | | | [phone] | | | | | | | | +--------+ + + + + | 05/19/ | Appointment | Cardiology | Martin Kelley, | | | 2019 | | | MD [address] | | | | | | [place] | | | | | | [place] [address] | | | | | | [phone] | | | | | | | | +--------+ + + + + | 11/26/ | Office | Cardiology | Martin Kelley, | | | 2020 | Visit | | [address] | | | | | | [place], | | | | | | [place] [address] | | | | | | [phone] | | | | | | | | +--------+ + + + + documented as of this encounter Procedures + +--------+ + + + | Procedure Name | Priori | Date/Time | Associated Diagnosis | Comments | | | ty | | | | + +--------+ + + + | XR CHEST 2 VIEWS | Routin | 07/17/2017 | | Results for this | | | e | 2:46 AM | | procedure are in the | | | | PST | | results section. | + +--------+ + + + documented in this encounter Results XR Chest 2 Vws (07/17/2017 2:46 AM PST) + + | Specimen | + + | | + + + + + | Narrative | Performed At | + + + | This is a non-reportable procedure without a radiologist report and | | | is used for image storage only | | + + + + + | Procedure Note | + + | Marty Gee Hillary - 02/26/2019 2:53 PM PDT This is a non-reportable procedure | | without a radiologist report and isused for image storage only | + + documented in this encounter Visit Diagnoses + + | Diagnosis | + + | Pain Generalized pain | + + documented in this encounter"
--- OUTSIDE RECORDS SUMMARY | ~2020-05-04 | XMS | Encounter Summary ---
Demographics + + + | Address | [address] | | | [place] [address] | + + + | Home Phone | | + + + | Preferred Language | Unknown | + + + | Marital Status | | + + + | Restorationist Affiliation | 1013 | + + + | Race | White | + + + | Ethnic Group | Not or | + + + Author + + + | Author | [facility] | | | and [place] | + + + | Organization | [facility] | | | [...] Team Providers + +------+ + | Care Project Production Engineer Name | Role | Phone | + +------+ + | Alec Hill MD | PCP | | + +------+ + Reason for Visit + +--------+ + | Reason | Onset | Comments | | | Date | | + +--------+ + | Information Only, No | 01/26/ | | | Triage | 2020 | | + +--------+ + Encounter Details +--------+ + + + + | Date | Type | Department | Care Team | Description | +--------+ + + + + | 01/26/ | Telephone | [facility] | Martin Kelley, | Information Only, No | | 2019 | | CARDIOLOGY ELIZA | [address] | Triage | | | | [address] | [facility], | | | | | [place], [place] | [place] [address] | | | | | [address] | [phone] | | | | | [phone] | | | +--------+ + + + [...] this encounter Miscellaneous Notes Telephone Encounter - Laisha Baeza RN - 01/27/2020 9:33 AM PDTS: received call fr gaston Hill Today (from [place]) regarding this patient B: Patient has been seen by Dr. Kelley. Patient was ablated in 2004 A: Dr. Hill called to inform office that this patient is having intermittent pain in he r L neck that increases with activity and subsides with rest. Per last office note with Dr. Kelley: 10/07/2019: Doing well. Has occasional "flutters" that [...] bisoprolol if needed. (Or take it early) R: Dr. Hill wanted to let us know as he was concerned patient has not informing Dr. Sussy urrutia. Patient and Dr. Kelley have discussed these events, see note above. documented in th is encounter Plan of Treatment +--------+ + + + + | Date | Type | Specialty | Care Team | Description | +--------+ + + + + | 05/19/ | Office | Orthopedic Surgery | Tee Choi, | | | 2019 | Visit | | MD [address] | | | | | | [place] [address] | | | | | | [phone] | | | | | | | | +--------+ + + + + | 05/19/ | Appointment | Cardiology | Martin Kelley, | | 2019 | | | MD [address] | | | | | | [place], | | | | | | [place] [address] | | | | | | [phone] | | | | | | | | +--------+ + + + + | 11/26/ | Office | Cardiology | Martin Kelley, | | | 2020 | Visit | | [address] | | | | | | [place], | | | | | | [place] [address] | | | | | | [phone] | | | | | | | | +--------+ + + + + documented as of this encounter Visit Diagnoses Not on filedocumented in this encounter
--- OUTSIDE RECORDS SUMMARY | ~2020-05-04 | XMS | Encounter Summary ---
Demographics + + + | Address | [address] | | | [place] [address] | + + + | Home Phone [...] + | Gene Gee | ECON | [address] | | | | | [place], | | | | | [place] [address] | | + + + + + Care Team Providers + +------+ + | Care Industrial Economics Teacher Name | Role | Phone | + +------+ + | Antony Ribera MD | PCP | | + +------+ + Reason for Visit Consultation (Routine) +--------+--------+ + + + + | Status | Reason | Specialty | Diagnoses / | Referred By | Referred To | | | | | Procedures | Contact | Contact | +--------+--------+ + + + + | Closed | | Hematology & | Diagnoses | [facility] | | | | Oncology | Carcinoma | MD Henri | Faculty [facility] | | | | | in situ of | [address] | [address] | | | | | breast | [address] | Ave | | | | | Procedures | [place], [place] | Mailcode: | | | | | CONSULT TO | [address] | [address] [facility] | | | | | HEMATOLOGY / | Phone: | for [facility] | | | | | ONCOLOGY | [phone] | and Healing, | | | | | PRACTICE | Fax: | [address], | | | | | | [phone] | [facility] Floor | | | | | | | [place], [place] | | | | | | | [address] | | | | | | | Phone: | | | | | | | [phone] | | | | | | | Fax: | | | | | | | [phone] | +--------+--------+ + + + + Encounter Details +--------+ + + + + | Date | Type | Department | Care Team | Description | +--------+ + + + + | 05/02/ | Office | Hematology/Medical | Stevan Velazquez, | | | 2006 | Visit-ECX | Oncology at [facility] | [address] | | | | | [address] | [facility] [place] | | | | | Mailcode: 7 | [address] | | | | | [facility] | [phone] | | | | | and Healing, | | | | | | [facility] | | | | | | Floor [place], [place] | | | | | | [address] | | | | | | [phone] | | | +--------+ + + + [...] + + + | Blood Pressure | 125/51 | 05/02/2007 2:06 PM | | | | | PDT | | + + + + + | Pulse | 76 | 05/02/2007 2:06 PM | | | | | PDT | | + + + + + | Temperature | 36.6 C (97.8 F) | 05/02/2007 2:06 PM | | | [...] | Weight | 65.1 kg (143 lb 8.3 | 05/02/2007 2:06 PM | | | | oz) | PDT | | + + + + + | Height | 166.4 cm (5' 5.5") | 05/02/2007 2:06 PM | | | | | PDT | | + + + + + | Body Mass Index | 23.52 | 05/02/2007 2:06 PM | | | | | PDT | | + + + + + documented in this encounter Plan of Treatment Not on filedocumented as of this encounter Visit Diagnoses Not on filedocumented in this encounter
--- OUTSIDE RECORDS SUMMARY | ~2020-05-04 | XMS | Encounter Summary ---
Demographics + + + | Address | [address] | | | [place] [address] | + + + | Home Phone [...] + | Gene Gee | ECON | [address] | | | | | [place], | | | | | [place] [address] | | + + + + + Care Team Providers + +------+ + | Care Door To Door Lead Generation Name | Role | Phone | + +------+ + | Antony Ribera MD | PCP | | + +------+ + Encounter Details +--------+ + + + + | Date | Type | Department | Care Team | Description | +--------+ + + + + | 10/23/ | MyChart | Plastic and | Errol Gold | RE: appt | | 2012 | Encounter | Reconstructive | MD [address]anda [address] | | | | | Surgery at [facility] [address] | | | | S [facility] | [address] [place], [place] | | | | | for Health and | [address] | | | | | [place] [address], | | | | | | 5th [facility] | | | | | | [place], [place] | | | | | | [address] | | | | | | [phone] | | | +--------+ + + + [...]
--- OUTSIDE RECORDS SUMMARY | ~2020-05-04 | XMS | Encounter Summary ---
Demographics + + + | Address | [address] | | | [place] [address] | + + + | Home Phone [...] + | Gene Gee | ECON | [address] | | | | | [place], | | | | | [place] [address] | | + + + + + Care Team Providers + +------+ + | Care Venetian Blind Cleaner Name | Role | Phone | + [...] | | | | | | Mailcode: [facility] | | | | | | | [facility] | | | | | | | for Health | | | | | | | and Healing, | | | | | | | Building [address] | | | | | | | [facility] [place] | | | | | | | [address] | | | | | | | Phone: | | | | | | | [phone] | | | | | | | Fax: | | | | | | | [phone] | +--------+--------+ + + + + Encounter Details +--------+ + + + + | Date | Type | Department | Care Team | Description | +--------+ + + + + | 01/12/ | Hospital | [facility] at [facility] | Ki Lo | | | 2009 | Encounter | [facility] [address] | MD Dez [address] | | | | | [address] [facility] for | [address] [place], | | | | | Health and Healing, | [place] [address] | | | | | Building [address] | [phone] | | | | | [facility] [place] | | | | | | [address] | | | | | | [phone] | | | +--------+ + + + [...] documented as of this encounter Progress Notes Ki Lo MD - 01/12/2010 12:52 PM PDTFormatting of this note might be diffe rent from the original. PROCEDURE NOTE: Subjective: Adriana Flynn is a 64 y.o. female MR# [id number] presents today for an EGD m otjoshua and whitley to assess for GERD. PARQ held and all questions addressed. Objective: Vital Signs: See nurses notes Neuro: patient is Patient oriented X3. Mental status clear and intact Mallampati Score: II Neck negative Respiratory Lungs clear to auscultation bilaterally with good air exchange Cardiac Regular Rate and Rhythm. Abdomen: soft, normal active bowel sounds, nontender, no masses, no organomegaly Medications: Meds reviewed Allergies: Allergies as of 01/12/2010 - reviewed 01/12/2010 Allergen Reaction Noted Sulfa (sulfonamides) Swelling-Facial 07/01/2004 Ciprofloxacin Hives and Rash 08/11/2004 Triamterene-hydrochlorothiazid 08/11/2004 Celebrex (celecoxib) Diarrhea and Cough 03/07/2007 Albuterol Tachycardia 03/07/2007 Flecainide acetate Rash 03/07/2007 Propafenone 03/07/2007 Crestor (rosuvastatin calcium) muscle/Jt Pain 09/07/2009 Zetia (ezetimibe) Nausea/Vomiting 09/07/2009 Kapidex (dexlansoprazole) 10/12/2009 Lactose 11/02/2009 Tape adherent Rash 07/06/2007 See procedure note 01/12/2010 documented in this encounter Procedure Notes Other, Faculty - 01/12/2010 4:04 PM PDTAssociated Order(s): EGD; EGD documented in this encounter Plan of Treatment Not on filedocumented as of this encounter Procedures + +--------+ + + + | Procedure Name | Priori | Date/Time | Associated Diagnosis | Comments | | | ty | | | | + +--------+ + + + | EGD | | 01/12/2010 | | Results for this | | | | 12:00 AM | | procedure are in the | | | | PDT | | results section. | + +--------+ + + + documented in this encounter Results EGD (01/12/2010 12:00 AM PDT) + + + | Narrative | Performed At | + + + | | | + + + + + | Procedure Note | + + | Ligia Faculty - 01/12/2010 4:04 PM PDT | | | + + documented in this encounter Visit Diagnoses Not on filedocumented in this encounter"
--- OUTSIDE RECORDS SUMMARY | ~2020-05-04 | XMS | Encounter Summary ---
Demographics + + + | Address | [address] | | | [place] [address] | + + + | Home Phone [...] + | Gene Gee | ECON | [address] | | | | | [place], | | | | | [place] [address] | | + + + + + Care Team Providers + +------+ + | Care Screener Operator Name | Role | Phone | [...] Disorder of | [address] | [place] | | | | | bone and | [place], [place] | Rd [place], | | | | | cartilage, | [address] | [place] | | | | | unspecified | Phone: | [phone] | | | | | Procedures | [phone] | Phone: | | | | | CONSULT TO | Fax: | [phone] | | | | | ENDOCRINOLOG | [phone] | Fax: | | | | | Y | | [phone] | +--------+ + + + + + Encounter Details +--------+---------+ + + + | Date | Type | Department | Care Team | Description | +--------+---------+ + + + | 08/07/ | Office | John Rudolph | Tapan Horowitz MD | Age-related | | 2019 | Visit | Diabetes Health | [address] [facility] | osteoporosis without | | | | Center at Physicians | Jacky Naqvi [place], | current | | | | [address] | [place] [address] | pathological | | | | [address] | [phone] | fracture | | | | [facility] | | | | | | Physician's | | | | | | Pavilion [place], | | | | | | [place] [address] | | | | | | [phone] | | | +--------+---------+ + + + [...] + + + | Blood Pressure | 122/66 | 08/07/2018 3:54 PM | | | | | PST | | + + + + + | Pulse | 64 | 08/07/2018 3:54 PM | | | | | PST | | + + + + + | Temperature | - | - | | + + + + + | Respiratory Rate | 12 | 08/07/2018 3:54 PM | | | | | PST | | + + + + + | Oxygen Saturation | - | - | | + + + + + | Inhaled Oxygen | - | - | | | Concentration | | | | + + + + + | Weight | 64.9 kg (143 lb) | 08/07/2018 3:54 PM | | | | | PST | | + + + + + | Height | 165.3 cm (5' 5.08") | 08/07/2018 3:54 PM | | | | | PST | | + + + + + | Body Mass Index | 23.74 | 08/07/2018 3:54 PM | | | | | PST | | + + + + + documented in this encounter Progress Tapan Amin MD - 08/07/2018 3:35 PM PSTFormatting of this note might be different from michael tamez. Chief Complaint: Patient being seen in followup for the following issues: bone ROS Cardiovascular and pulmonary systems have been reviewed and had the flu. History Smoking Status Never Smoker Smokeless Tobacco Never Used History Alcohol Use No S/ Interval History: no falls, fractures, kidney stones, dental problems since last visit i n may 2017 Exam: Filed Vitals: 08/07/2018 3:54 PM Height: 1.653 m (5' 5.08") Weight: 64.9 kg (143 lb) BP: 122/66 Pulse: 64 Resp: 12 PainSc: 0 - Zero BMI: 23.74 kg/(m^2) Gen: NAD CV: Regular Mouth; Stable dentition Lungs: CTA Neuro: Alert and oriented x 3 A/P 1. Osteoporosis: pt last rcvd IV Reclast in 2010. Will repeat now. Side effects reviewed. P t on calcium/vit d- check vit d level. Pt sees dentist regularly. documented in this encou nter Plan of [...] [facility] | [address] | [place] [address] | | | SERVICES, CORE | PARK [...] | | | LABORATORY | | | BULGARIAN | | | SERVICES, | | | [...] | + + + + + | [facility] | [address] | [place] [address] | | | SERVICES, CORE | [address] | | | + + + + + documented in this encounter Visit Diagnoses + + | Diagnosis | + + | Age-related osteoporosis without current pathological fracture Senile osteoporosis | + + documented in this encounter
--- OUTSIDE RECORDS SUMMARY | ~2020-05-04 | XMS | Encounter Summary ---
Demographics + + + | Address | [address] | | | [place] [address] | + + + | Home Phone [...] + | Gene Gee | ECON | [address] | | | | | [place], | | | | | [place] [address] | | + + + + + Care Team Providers + +------+ + | Care Incident Coordinator Name | Role | Phone | + +------+ + | Antony Ribera MD | PCP | | + +------+ + Encounter Details +--------+ + + + + | Date | Type | Department | Care Team | Description | +--------+ + + + + | 11/09/ | Telephone | Pulmonary & | Juana Kilgore MD | | | 2018 | | Critical Care | [address] | | | | | Medicine at | [facility], | | | | | Physicians [place] | [place] [address] | | | | | [address] | [phone] | | | | | Loop Physician's | | | | | | Pavilion, 3rd Floor | | | | | | [place], [place] | | | | | | [address] | | | | | | [phone] | | | +--------+ + + + [...] this encounter Miscellaneous Notes Telephone Encounter - Juana Kilgore MD - 11/09/2017 9:10 AM PDTSpoke with pharmacy [employer] does not do medicare part B which is required for nebulizer solutions Last levalbuterol neb solution sent to [facility] reodered to [facility] in [place] Pharmacist will call patient Juana Kilgore MD elephone Encounter - Juana Grant MD - 11/09/2017 9:06 AM PDT----- Message from Rebecca Contreras sent at 018 8:19 AM PDT ----- Regarding: FW: [facility] HIGH TENSION TESTER Contact: ----- Message ----- From: Tez Winters Sent: 11/08/2017 5:49 PM To: Pul Embroiderer Subject: [facility] HIGH TENSION TESTER Who is calling? [facility] Best number to reach you at? [phone] Best time to contact you? anytime Reason for call? Clarification of rx Advised caller that they will receive a call back next business day. Caller understands an d is agreeable to this. documented in this enco unter Plan of Treatment Not on filedocumented as of this encounter Visit Diagnoses Not on filedocumented in this encounter"
--- OUTSIDE RECORDS SUMMARY | ~2020-05-04 | XMS | Encounter Summary ---
Demographics + + + | Address | [address] | | | [place] [address] | + + + | Home Phone [...] + | Gene Gee | ECON | [address] | | | | | [place], | | | | | [place] [address] | | + + + + + Care Team Providers + +------+ + | Care Universal Worker Assisted Living Name | Role | Phone | + +------+ + | Antony Ribera MD | PCP | | + +------+ + Encounter Details +--------+ + + + + | Date | Type | Department | Care Team | Description | +--------+ + + + + | 04/04/ | MyChart | Surgical Oncology | [facility], | mamm | | 2011 | Encounter | at [facility] [address] | [address] | | | | | Ave Center for | [place], [place] | | | | | Health and Healing, | [address] | | | | | [address] | [phone] | | | | | [place], [place] | | | | | | [address] | | | | | | [phone] | | | +--------+ + + + [...]
--- OUTSIDE RECORDS SUMMARY | ~2020-05-04 | XMS | Encounter Summary ---
Demographics + + + | Address | [address] | | | [place] [address] | + + + | Home Phone [...] + | Gene Gee | ECON | [address] | | | | | [place], | | | | | [place] [address] | | + + + + + Care Team Providers + +------+ + | Care Customer Energy Specialist Name | Role | Phone | + +------+ + | Antony Ribera MD | PCP | | + +------+ + Encounter Details +--------+ + + + + | Date | Type | Department | Care Team | Description | +--------+ + + + + | 09/28/ | MyChart | Surgical Oncology | [facility], | RE:opinion | | 2014 | Encounter | at [facility] [address] | [address] | | | | | Ave Center for | [place], [place] | | | | | Health and Healing, | [address] | | | | | Building [address] | [phone] | | | | | [place], [place] | | | | | | [address] | | | | | | [phone] | | | +--------+ + + + [...]
--- OUTSIDE RECORDS SUMMARY | ~2020-05-04 | XMS | Encounter Summary ---
Demographics + + + | Address | [address] | | | [place] [address] | + + + | Home Phone [...] + | Gene Gee | ECON | [address] | | | | | [place], | | | | | [place] [address] | | + + + + + Care Team Providers + +------+ + | Care Technician Support Engineer Name | Role | Phone | + +------+ + | Antony Ribera MD | PCP | | + +------+ + Reason for Visit + +--------+ + | Reason | Onset | Comments | | | Date | | + +--------+ + | Prescription | 05/22/ | | | | 2007 | | + +--------+ + Encounter Details +--------+ + + + + | Date | Type | Department | Care Team | Description | +--------+ + + + + | 05/22/ | Telephone | Hematology/Medical | Stevan Velazquezn, | Prescription | | 2007 | | Oncology at [facility] | MD [address] | | | | | [address] | [facility] [place] | | | | | Mailcode: [facility] | [address] | | | | | [facility] | [phone] | | | | | and Healing, | | | | | | [facility] | | | | | | Floor [facility] [place] | | | | | | [address] | | | | | | [phone] | | | +--------+ + + + [...]
--- OUTSIDE RECORDS SUMMARY | ~2020-05-04 | XMS | Encounter Summary ---
Demographics + + + | Address | [address] | | | [place] [address] | + + + | Home Phone [...] + | Gene Gee | ECON | [address] | | | | | [place], | | | | | [place] [address] | | + + + + + Care Team Providers + +------+ + | Care Feller Machine Operator Name | Role | Phone | + +------+ + | Antony Ribera MD | PCP | | + +------+ + Encounter Details +--------+--------+ + + + | Date | Type | Department | Care Team | Description | +--------+--------+ + + + | 11/23/ | Refill | Hematology/Medical | Stevan Velazquez, | | | 2008 | | Oncology at [facility] | [address] | | | | | [address] | [place], [place] | | | | | Mailcode: [facility] | [address] | | | | | [facility] | [phone] | | | | | and Healing, | | | | | | Building | | | | | | Floor [place], [place] | | | | | | [address] | | | | | | [phone] | | | +--------+--------+ + + + [...] Telephone Encounter - Rosalinda Palacios RN - 11/23/2008 1:40 PM PDTRouting request to Dr. Ellen jacobo. elephone Jenny Middleton - 11/23/2008 1:38 PM PDTPatient would like to know if a nurse could olga l in a new 3 month supply of Arimidex? She would like to use [facility] [place]. Please call Adriana @ [phone] or [phone] to get pharmacy info documented in this encounter Plan of Treatment Not on filedocumented as of this encounter Visit Diagnoses Not on filedocumented in this encounter"
--- OUTSIDE RECORDS SUMMARY | ~2020-05-04 | XMS | Encounter Summary ---
Demographics + + + | Address | [address] | | | [place] [address] | + + + | Home Phone [...] + | Gene Gee | ECON | [address] | | | | | [place], | | | | | [place] [address] | | + + + + + Care Team Providers + +------+ + | Care Collaborative Physician Name | Role | Phone | + +------+ + | Antony Ribera MD | PCP | | + +------+ + Encounter Details +--------+ + + + + | Date | Type | Department | Care Team | Description | +--------+ + + + + | 02/19/ | MyChart | Pulmonary & | Hannah Hansen, | RE: Follow up - 5 | | 2016 | Encounter | Critical Care | ,PhD [address] | weeks out | | | | Medicine at | [facility] | | | | | Physicians [place] | [place], [place] | | | | | [address] | [address] | | | | | Loop Physician's | [phone] | | | | | [place], [facility] Floor | | | | | | [place], [place] | | | | | | [address] | | | | | | [phone] | | | +--------+ + + + [...] documented as of this encounter Miscellaneous Notes Addendum Note - Hannah Hansen MD,PhD - 02/23/2016 6:55 AM PDT Addended by: EDDIE FERRER PHD, HANNAH on: 02/23/2016 06:55 AM Modules accepted: Orders, Medications documented in th is encounter Plan of Treatment Not on filedocumented as of this encounter Visit Diagnoses + + | Diagnosis | + + | Moderate persistent asthma with acute exacerbation - Primary | + + documented in this encounter"
--- OUTSIDE RECORDS SUMMARY | ~2020-05-04 | XMS | Encounter Summary ---
Demographics + + + | Address | [address] | | | [place] [address] | + + + | Home Phone [...] + | Gene Gee | ECON | [address] | | | | | [place], | | | | | [place] [address] | | + + + + + Care Team Providers + +------+ + | Care Spinner Hydraulic Name | Role | Phone | + +------+ + | Antony Ribera MD | PCP | | + +------+ + Reason for Visit + +--------+ + | Reason | Onset | Comments | | | Date | | + +--------+ + | Procedure | 11/01/ | | | | 2009 | | + +--------+ + Encounter Details +--------+ + + + + | Date | Type | Department | Care Team | Description | +--------+ + + + + | 11/01/ | Telephone | Digestive Health | Alea Noriega MD | Procedure | | 2009 | | Center at [facility] [address] | [address] | | | | | [address] [facility] | [address] [place], | | | | | for Health and | [place] [address] | | | | | [facility] | [phone] | | | | | [place], [place] | | | | | | [address] | | | | | | [phone] | | | +--------+ + + + [...] this encounter Miscellaneous Notes Telephone Encounter - Giorgi Zambrano - 11/02/2009 2:57 PM PDTS/w pt, still hospitalized. P t states she already rescheduled the procedure. Electronically signed by Giorgi Zambrano at 2:57 PM PDTTelephone Encounter - Alea Noriega MD - 11/01/2009 4:12 PM PDTI really c annot determine this right now. It depends on the patient's hospitalization course. I woul d say that if she is still hospitalized, we should re-schedule. If she is discharged, she c an have her EGD . el ephone Encounter - Giorgi Zambrano - 11/01/2009 3:[address] of Dr[address] Noriega's recommen dation. States the doctor in the hospital determined that it was slight stricture / bowel o bstruction and is on liquid diet today already. Does she still need to reschedule the EGD that is set up for this ? P M PDTTelephone Encounter - Alea Noriega MD - 11/01/2009 2:36 PM PDTIt is possible to do the E GD, but Helms cannot be done at [facility] (I believe). Additionally, I see that she is currently admitted for a possible bowel obstruction, and there is a possibility that we would want her completely recovered from this--meaning reschedule the EGD. It is a relative contraindicat ion to do this procedure when someone is obstructed. Can you inform her? elephon e Encounter - Emiliana Parker - 11/01/2009 1:36 PM PDTAdriana Flynn calling stating that s he is inpatient at [facility] and wonders if they can do the EGD and Helms that she's scheduled fo r on 11/04 while she's inpatient. Please advise. Pain Scale: N/A Recent Surgery or Procedure: NO Pharmacy: Pharmacy Preferences: [facility] [address] [place] [address] [facility] [place] [address] [facility] [place] [address] [place], [place] [id number] [phone] [place] [address] documented in this encou nter Plan of Treatment Not on filedocumented as of this encounter Visit Diagnoses Not on filedocumented in this encounter"
--- OUTSIDE RECORDS SUMMARY | ~2020-05-04 | XMS | Encounter Summary ---
Demographics + + + | Address | [address] | | | [place] [address] | + + + | Home Phone [...] + | Gene Gee | ECON | [address] | | | | | [place], | | | | | [place] [address] | | + + + + + Care Team Providers + +------+ + | Care Environmental Services Coordinator Name | Role | Phone | [...] Description | +--------+---------+ + + + | 05/12/ | Office | Hematology/Medical | Stevan Velazquez, | Breast Cancer (HCC) | | 2007 | Visit | Oncology at [facility] | MD [address] | (Primary Dx) | | | | [address] | [place], [place] | | | | | Mailcode: [facility] | [address] | | | | | [facility] | [phone] | | | | | and [place], | | | | | | [place] [address] [facility] | | | | | | Floor [place], [place] | | | | | | [address] | | | | | | [phone] | | | +--------+---------+ + + + [...] + + + | Blood Pressure | 123/57 | 05/12/2008 11:02 AM | | | | | PDT | | + + + + + | Pulse | 69 | 05/12/2008 11:02 AM | | | | | PDT | | + + + + + | Temperature | 37.1 C (98.8 F) | 05/12/2008 11:02 AM | | | | | PDT | | + + + + + | Respiratory Rate | 16 | 05/12/2008 11:02 AM | | | | | PDT | | + + + + + | Oxygen Saturation | - | - | | + + + + + | Inhaled Oxygen | - | - | | | Concentration | | | | + + + + + | Weight | 66.3 kg (146 lb 1.6 | 05/12/2008 11:02 AM | | | | oz) | PDT | | + + + + + | Height | - | - | | + + + + + | Body Mass Index | 23.76 | 12/30/2007 10:25 AM | | | | | PDT | | + + + + + documented in this encounter Progress Notes Stevan Velazquez - 05/12/2008 11:58 AM PDTFormatting of this note might be [...] culitis and ruptured of hepatic cyst. She is here today for a follow up appointment. S: Three admission for SBO every three weeks- last one was 6 weeks ago. Conservative manage ment- resolved in 3-5 days. She just kept walking and getting iv hydration. Presentation symptoms were vomiting and abdominal pain. She was having once a year for four years- Now it is more frequent. Mammogram next week. Doing better. Stool has changed- it is now firmer. Weight loss- none. Energy level is getting better over the last couple weeks- no stamina. Pain with bowel movement- frequently. Sometimes with abdominal pain without BM. No N/V Not sleeping well again. Eating back to normal pretty much. Using more metamucil and psyllium and lots of hydration. No bloody or tarry stool. Neck and shoulder aches- some in the knees and hips- totally normal stuffs -nothing unusual . These are typical of her fibromyalgia pain. No numbness and tingling sensation Dry eyes fine- restasis. Vision is good. No cough or SOB or sputum production. Coughing more when she lies on her right side. Nothing during the day. Taking boniva- no more unbearable joint pain over knees- a couple of days- no heartburn. No more GERD symptoms. A little bit of palpitation- bumps here and there but not more than several seconds. She bhakta s been on a newer medication. She still need to be On atenolol for transient episodes of pal pitation. Calcium and vitamin D-- was on calcium for a long time and now with higher dose. She now has a more positive attitude. Shingles and flu shots were given. Hep A and B shots done as well Was not sure about pneumovax shots. No breast specific complaint. Normal range of motion and no swelling of her arm. No numbness or tingling sensation No headache Overall she is feeling better and getting better daily. She is taking protonix twice a day four days of the week and on the other three, she will t roly protonix one time plus pepcid one time a day. O: Filed Vitals: 05/12/2008 11:02 AM BP: 123/57 Pulse: 69 Temp: 37.1 C (98.8 F) TempSrc: Oral Resp: 16 Weight: 66.271 kg (146 lb 1.6 oz) PainSc: 02 - Mild PainLoc: Shoulder (Bilateral) Alert and oriented Not pale or icteric No oral lesion Conjunctiva injection noted on both sides No tenderness on percussion over sinuses Neck supple No JVE Chest, symmetric expansion, breathing sound is clear No wheezing or rales Heart, RR, no murmur or gallop Abd, soft and not tender, bowel sound is active over all four quadrants. No increased rigid ity or rebound Ext. No cyanosis or clubbing or edema No knocking pain down the spine No CVA tenderness Lymphatics, no cervical, axillary or supra-clav or infra-clav LAD palpable Breast exam- right breast surgically missing. No abnormal lesion over right sided chest wal l. No skin change. Well healed surgical scar. On the left side, no dominant mass or concerni ng lesion. No nipple discharge or deformity Neuro intact Normal ROM of her right shoulder Lab: CT abdomen pelvis 04/02/08 Comparison is made with CT dated 06/22/08 History: Rule out small bowel obstruction, history of multiple prior abdominal surgeries Technique: Following the uneventful administration of oral and IV contrast (Omnipaque 145 cc) helical imaging is performed in axial images through the abdomen and pelvis are generated. Abdomen findings The lung bases are clear. There is no pleural or pericardial effusion. The visualized cardiac and mediastinal structures appear within normal limits. As before numerous simple hepatic cysts are appreciated the largest of which is noted in the lateral segment left lobe of liver which measures 2.2 cm in transverse diameter. Prior cholecystectomy has been performed. The common duct is dilated to 1.4 cm, without visualized etiology. The pancreas, spleen, and adrenal glands are unremarkable. Several hypodense lesions are noted in the kidneys, too small to characterize, statistically most likely representing renal cysts. Several dilated loops of small bowel are seen in the left upper quadrant, measuring up to 3.5 cm in diameter (image 66), which taper proximally and distally, of unclear significance. These is about coarse posteriorly to the stomach, and may represent an internal hernia, with obstruction. In the pelvis there is a peripherally enhancing fluid collection, containing air. This appears to attach to non-compressed, proximal and distal loops of small bowel, and may represent a small closed-loop obstruction or internal hernia. This may less likely represent a pelvic abscess. Trace fluid free fluid is adjacent to this loop of bowel. There is no free air in the abdomen. Prior sigmoidectomy has been performed. Pelvis findings: Prior hysterectomy has been performed. The urinary bladder is intact. The osseous structures are unremarkable. These findings were discussed with the emergency department doctor, Dr. Davison, at time of initial preliminary report by the on-call resident. Impression: 1. In the pelvis a presumed [...] if clinically indicated. 4. Stable hepatic cysts. A/P: Adriana is doing well from breast cancer perspective but she has been experiencing incre ased incidence of SBO. I do not think arimidex is causing the problems for her. She has been on fosamax before and has taken calcium in the past- though now she is on higher level of c alcium intake for her low bone density issues. She is to meet with GI to discuss management of SBO. She saw general surgery and was told there was no good surgical options for preventi on of SBO. She is being followed by endocrine and will have a repeat bone density in about 6 months. She is taking appropriate amount of calcium and boniva. Her serum vitamin D level i s adequate She has a negative CBE today and will return next week for mammogram. We review the side effects of arimidex include low bone density, increased risk for fractur e, menopausal symptoms, hot flashes, joint pain, and development of unfavorable lipid profil e. Yearly monitoring of lipid profile is indicated. Adriana will continue on arimidex, calcium, vitamin D and Boniva. documented in this encoun ter Plan of Treatment Not on filedocumented as of this encounter Visit Diagnoses + + | Diagnosis | + + | Breast cancer (HCC) - Primary Malignant neoplasm of breast (female), unspecified site | + + documented in this encounter"
--- OUTSIDE RECORDS SUMMARY | ~2020-05-04 | XMS | Encounter Summary ---
Demographics + + + | Address | [address] | | | [place] [address] | + + + | Home Phone [...] + | Gene Gee | ECON | [address] | | | | | [place], | | | | | [place] [address] | | + + + + + Care Team Providers + +------+ + | Care Shell Trim Tool Setter Name | Role | Phone | + +------+ + | Antony Ribera MD | PCP | | + +------+ + Reason for Visit + +--------+ + | Reason | Onset | Comments | | | Date | | + +--------+ + | Refill Request | 01/31/ | [facility] | | | 2016 | | + +--------+ + Encounter Details +--------+--------+ + + + | Date | Type | Department | Care Team | Description | +--------+--------+ + + + | 01/31/ | Refill | Pulmonary & | Dez Hansen, | Refill Request | | 2015 | | Critical Care | ,PhD [address] | ([facility]) | | | | Medicine at | [facility] | | | | | [facility] | [place], [place] | | | | | [address] | [address] | | | | | [address] [facility] | [phone] | | | | | [facility] | | | | | | [place], [place] | | | | | | [address] | | | | | | [phone] | | | +--------+--------+ + + + [...] this encounter Miscellaneous Notes Telephone Encounter - Sharon White LPN - 02/01/2016 9:[address] from the pharmacy. Rx pended and routed to the provider for approval or denial. Last Appointment in [facility] was on 01/03/16 at 11:30 am with Dez Hansen MD,PhD. Next Appointment in [facility] is on 06/26/16 at 11:30 am with Dez Hansen MD,PhD. documented in this encounter Plan of Treatment Not on filedocumented as of this encounter Visit Diagnoses Not on filedocumented in this encounter"
--- OUTSIDE RECORDS SUMMARY | ~2020-05-04 | XMS | Encounter Summary ---
Demographics + + + | Address | [address] | | | [place] [address] | + + + | Home Phone [...] + | Gene Gee | ECON | [address] | | | | | [place], | | | | | [place] [address] | | + + + + + Care Team Providers + +------+ + | Care Shovel Logger Name | Role | Phone | + +------+ + | Antony Ribera MD | PCP | | + +------+ + Encounter Details +--------+ + + + + | Date | Type | Department | Care Team | Description | +--------+ + + + + | 05/23/ | Office | Hematology/Medical | Stevan Velazquez, | | | 2006 | Visit-ECX | Oncology at [facility] | [address] | | | | | [address] | [place], [place] | | | | | Mailcode: [place] | [address] | | | | | [facility] | [phone] | | | | | and Healing, | | | | | | [facility] | | | | | | Floor [place], [place] | | | | | | [address] | | | | | | [phone] | | | +--------+ + + + [...] | Blood Pressure | 144/68 | 05/23/2007 9:33 AM | | | | | PST | | + + + + + | Pulse | 85 | 05/23/2007 9:33 AM | | | | | PST | | + + + + + | Temperature | 36.4 C (97.6 F) | 05/23/2007 9:33 AM | | | | | PST [...] 65.6 kg (144 lb 10 | 05/23/2007 9:33 AM | | | | oz) | [...]
--- OUTSIDE RECORDS SUMMARY | ~2020-05-04 | XMS | Encounter Summary ---
Demographics + + + | Address | [address] | | | [place] [address] | + + + | Home Phone [...] + | Gene Gee | ECON | [address] | | | | | [place], | | | | | [place] [address] | | + + + + + Care Team Providers + +------+ + | Care Logger Name | Role | Phone | + +------+ + | Antony Ribera MD | PCP | | + +------+ + Encounter Details +--------+ + + + + | Date | Type | Department | Care Team | Description | +--------+ + + + + | 11/27/ | Procedure | Plastic and | Errol Gold | | | 2013 | | Reconstructive | MD [address] | | | | | Surgery at [facility] [address] | | | | [facility] | [address] [place], [place] | | | | | for Health and | [id number] | | | | | Healing, [address], | | | | | | 5th Floor | | | | | | [place], [place] | | | | | | [address] | | | | | | [phone] | | | +--------+ + + + [...] + + + | Blood Pressure | 121/69 | 11/27/2013 1:38 PM | | | | | PDT [...] | Weight | 66.5 kg (146 lb 9.6 | 11/27/2013 1:38 PM | | | | oz) | PDT | | + + + + + | Height | 165.1 cm (5' 5") | 11/27/2013 1:38 PM | | | | | PDT | | + + + + + | Body Mass Index | 24.4 | 11/27/2013 1:38 PM | | | | | PDT | | + + + + + documented in this encounter Progress Notes [facility] - 11/28/2013 2:45 PM PDTProcedure Note: Micropigmentation of areola Procedure Date: 11/27/13 Attending Physician: Mark Gold MD Resident Physician: None Pre-procedure Diagnosis: Acquired absence of right nipple-areola complex History of breast cancer Post-procedure Diagnosis: Same Procedure Performed: Micropigmentation of left areola Indication: 67 y.o. 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 She bhakta s undergone right breast reconstruction with implant and right nipple reconstruction and lef t breast mastopexy. She reports loss of pigment on the left side. At this time, we are ready to proceed with micropigmentation of the left areola to match the reconstructed right side. We will also touch up the color of the reconstructed nipple on the right. The risks, benefits and alternatives of the above procedure were discussed with the patient today. The risks, including but not limited to swelling, allergic reaction, asymmetry, blee ding/bruising, pain, infection, and need for more procedures such as micropigmentation were discussed with the patient. All questions were answered. The patient gave her informed conse nt which can be found on the chart. Description of procedure: Prior to beginning the procedure, the patient's identity was veri fied, as well as the procedure to be performed and the surgical site. All equipment required was ready and available. The patient was positioned appropriately. Our attention was turned to the left nipple. A diameter of 40 mm was drawn around the previously incised nipple. The area was sterilized using alcohol. Using a tattoo machine, dark flesh colored pigment was i ntroduced into the areolar area. On the right side, a 5 mm x 5 mm area of the reconstructed nipple was tattooed to introduce more pigment into this area. There was pinpoint bleeding at the end of the session. The areola was wiped clean with alcohol. Pressure was applied to t surgical sites to control minimal bleeding. Ointment was applied over the tattooed area. Sterile gauze and Tegaderm was used to cover the surgical site. The patient tolerated the procedure well and without complication. Colors: Left Areola: Burgin areola (2/3) + baby lips (1/3) Right nipple: pink areola (2/3) + red areola (1/3) Plan: Dressings to stay in place for 48 hours. Then, apply ointment daily and prn. Return t o clinic in one month for follow up. documented in this encounter Miscellaneous Notes Scan - Other, Faculty - 11/28/2013 8:45 PM PDTElectronically signed by Faculty Other at 8:45 PM PDTdocumented in this encounter Plan of Treatment Not on filedocumented as of this encounter Visit Diagnoses + + | Diagnosis | + + | Acquired Absence of Breast - Primary Acquired absence of breast and nipple | + + | Carcinoma in situ of breast | + + documented in this encounter
--- OUTSIDE RECORDS SUMMARY | ~2020-05-04 | XMS | Encounter Summary ---
Demographics + + + | Address | [address] | | | [place] [address] | + + + | Home Phone | | + + + | Preferred Language | Unknown | + + + | Marital Status | | + + + | Yazidism Affiliation | [id number] | + + + | Race | White | + + + | Ethnic Group | Not or | + + + Author + + + | Author | [facility] | | | and [place] | + + + | Organization | [facility] | | | [...] Team Providers + +------+ + | Care Assembly Hand Name | Role | Phone | + +------+ + PCP | Unavailable | + +------+ + Encounter Details +--------+ + + + + | Date | Type | Department | Care Team | Description | +--------+ + + + + | 07/05/ | Hospital | [facility] | Ki Snell | | | 1999 | Encounter | MED CTR GENERIC OP | MD [address] | | | | | CONV DEPT [address] | | | | | [address], | [place] [address] | | | | | [place] [address] | [phone] | | | | | [phone] | | | +--------+ + + + [...] | | | | | [place] [address] | | | | | | [phone] | | | | | | | | +--------+ + + + + | 05/19/ | Appointment | Cardiology | Martin Kelley, | | | 2019 | | | MD [address] | | | | | | [place], | | | | | | [place] [address] | | | | | | [phone] | | | | | | | | +--------+ + + + + | 11/26/ | Office | Cardiology | Martin Kelley, | | | 2020 | Visit | | MD [address] | | | | | | [place], | | | | | | [place] [address] | | | | | | [phone] | | | | | | | | +--------+ + + + + documented as of this encounter Visit Diagnoses Not on filedocumented in this encounter"
--- OUTSIDE RECORDS SUMMARY | ~2020-05-04 | XMS | Encounter Summary ---
Demographics + + + | Address | [address] | | | [place] [address] | + + + | Home Phone [...] + | Gene Gee | ECON | [address] | | | | | [place], | | | | | [place] [address] | | + + + + + Care Team Providers + +------+ + | Care Microcomputer Support Specialist Name | Role | Phone | [...] | | | | | [place] | [place], [place] | | | | | | [address] | [address] | | | | | | [place], | Phone: | | | | | | [place] [address] | [phone] | | | | | | Phone: | Fax: | | | | | | [phone] | [phone] | | | | | | Fax: | | | | | | | [phone] | | +--------+--------+ + + + + Encounter Details +--------+---------+ + + + | Date | Type | Department | Care Team | Description | +--------+---------+ + + + | 10/02/ | Office | Pulmonary & | Dez Hansen, | Moderate persistent | | 2017 | Visit | Critical Care | ,PhD [address] | asthma without | | | | Medicine at | [facility] [address] | complication | | | | [facility] | [place], [place] | (Primary Dx); | | | | [address] | [address] | Albuterol adverse | | | | [facility] | [phone] | reaction, subsequent | | | | [address], [address] | | encounter | | | | [place], [place] | | | | | | [address] | | | | | | [phone] | | | +--------+---------+ + + + [...] + + + | Blood Pressure | 138/75 | 10/02/2016 9:51 AM | | | | | PDT | | + + + + + | Pulse | 66 | 10/02/2016 9:51 AM | | | | | PDT | | + + + + + | Temperature | 36.7 C (98.1 F) | 10/02/2016 9:51 AM | | | | | PDT | | + + + + + | Respiratory Rate | 16 | 10/02/2016 9:51 AM | | | | | PDT | | + + + + + | Oxygen Saturation | 99% | 10/02/2016 9:51 AM | | | | | PDT | | + + + + + | Inhaled Oxygen | - | - | | | Concentration | | | | + + + + + | Weight | 70.8 kg (156 lb) | 10/02/2016 9:51 AM | | | | | PDT | | + + + + + | Height | 167.6 cm (5' 5.98") | 10/02/2016 9:51 AM | | | | | PDT | | + + + + + | Body Mass Index | 25.19 | 10/02/2016 9:51 AM | | | | | PDT | | + + + + + documented in this encounter Patient Instructions Patient Instructions Dez Hansen MD,PhD - 10/02/2016 10:00 AM PDTWhat is my diagnosis/W hat am I being treated for? - Asthma What is my plan for today s visit (what tests I have to do when I leave, how am I suppose d to use my medications)? - Continue PULMICORT, start Tiotropium take both daily - Use Xopenex (Levalbuterol) for rescue (With by Puffer of Nebulizer) - Okay to use Atrovent (ipratropium) for rescue as well What needs to happen for my condition to improve/resolve? - Continue with controller medication as above What is the name of the doctor I saw today? - Dez Hansen MD,PhD How do I get in touch with the doctor(s) in case I have a question? - Call [phone] We recommend signing up for [employer] our secure online messaging system that will [...] or present to the nearest Emergency Room. tiotropium inhalation Pronunciation: LORETA oh KRISTINE portillo um Brand: Spiriva, Spiriva Respimat 14 Dose, Spiriva Respimat 30 Dose, Spiriva Respimat 60 What is the most important information I should know about tiotropium inhalation? A tiotropium capsule is for use only in the HandiHaler device. Do not take the capsule by m [facility]. Use only one capsule at a time. What is tiotropium inhalation? Tiotropium is a bronchodilator that relaxes muscles in the airways and increases air flow t o the lungs. Tiotropium inhalation is used to prevent bronchospasm (narrowing of the airways in the lung s) in people with COPD (chronic obstructive pulmonary disease), including bronchitis and emp hysema. Tiotropium inhalation may also be used for purposes not listed in this medication guide. What should I discuss with my healthcare provider before using tiotropium inhalation? You should not use this medicine if you are allergic to tiotropium or ipratropium (Atrovent , Combivent, DuoNeb). To make sure this medicine is safe for you, tell your doctor if you have: narrow-angle glaucoma; kidney disease; enlarged prostate or urination problems; if you are allergic to milk; or if you also take medicine to treat Parkinson's disease, overactive bladder, irritable samir wel syndrome, depression, high blood pressure, or muscle spasms. It is not known whether this medicine will harm an unborn baby. Tell your doctor if you are or plan to become . It is not known whether tiotropium inhalation passes into breast milk or if it could harm a nursing baby. Tell your doctor if you are breast-feeding a baby. Tiotropium inhalation is not approved for use by anyone younger than 18 years old. How should I use tiotropium inhalation? The usual dose of this medicine is 2 inhalations (puffs) through the mouth once daily. Foll ow all directions on your prescription label. Do not use this medicine in larger or smaller amounts or for longer than recommended. Tiotropium inhalation is not a rescue medicine. It will not work fast enough to treat a MULTIPLE RESAW OPERATOR D flare-up. Your doctor may prescribe a fast-acting inhalation medicine to treat a bronchosp asm attack. Tell your doctor if it seems like your medications don't work as well. Tiotropium inhalation comes with patient instructions for safe and effective use, and direc tions for priming the inhaler device. Read all patient information, medication guides, and i nstruction sheets provided to you. Ask your doctor or pharmacist if you have any questions. Tiotropium inhalation powder (Spiriva HandiHaler) is packaged in capsules that come with a special inhaler device. Each time you use the medicine, load a capsule into the device and c lick the mouthpiece closed. Push the button on the side of the device to alfredo the capsule and release the medicine into the inhalation chamber. You will need 2 inhalations to get the full dose from 1 capsule. Do not take the capsule by mouth. Tiotropium capsules are for use only in the HandiHaler de vice. Use only 1 capsule at a time. Do not use the HandiHaler device to take any other medic ine. Keep each tiotropium capsule in its blister pack until you are ready to place the capsule i nto the HandiHaler and use the device. Throw away any capsule that is not used right after y ou have taken it out of the blister pack. Exposure to air can ruin the capsule. Tiotropium inhalation aerosol (Spiriva Respimat) comes in a cartridge that is inserted into a special inhaler device provided with this medicine. Turning the base of the Respimat adryan ce until it clicks will release the medicine into the inhaler chamber. You will need 2 puffs to get a full dose. The Spiriva Respimat inhaler will lock and cannot be turned after 30 doses (or 60 puffs) bhakta ve been used. An indicator on the side of the inhaler will show when there are 14 puffs (or 7 days) of medicine left in the cartridge. To be sure this medicine is helping your condition, your lung function will need to be test ed on a regular basis. Use tiotropium inhalation regularly to get the most benefit. Get your prescription refilled before you run out of medicine completely. Store at room temperature away from moisture and heat. Do not freeze. What happens if I miss a dose? Use the missed dose as soon as you remember. Skip the missed dose if it is almost time for your next scheduled dose. Do not use extra medicine to make up the missed dose. Do not use more than 2 inhalations in a 24-hour period. What happens if I overdose? Seek emergency medical attention or call the Poison Help line at . Overdose symptoms may include dry mouth, eye redness, constipation, stomach pain, and confu el or drowsiness. What should I avoid while using tiotropium inhalation? Avoid getting the powder from a tiotropium capsule in your eyes. If this does happen, call your doctor. This medicine may cause dizziness or blurred vision and may impair your thinking or reactio ns. Be careful if you drive or do anything that requires you to be alert and able to see kalia kirsten. Using tiotropium inhalation with other drugs that cause blurred vision, constipation, or di fficult urination can worsen these effects. Avoid using cold or allergy medicine, over-the-c ounter sleep medicine, a muscle relaxer, or medicine to prevent nausea or motion sickness. What are the possible side effects of tiotropium inhalation? Get emergency medical help if you have signs of an allergic reaction: hives, itching; diffi cult breathing; swelling of your face, lips, tongue, or throat. Call your doctor at once if you have: wheezing, choking, or other breathing problems after using this medicine; blurred vision, eye pain or redness, seeing halos around lights; sores or white patches on your mouth, lips, or tongue; pain or burning when you urinate; or little or no urinating. Common side effects may include: dry mouth; blurred vision; constipation, painful urination; upset stomach; chest pain; or cold symptoms such as stuffy or runny nose, sinus pain, sore throat. This is not a complete list of side effects and others may occur. Call your doctor for [facility] advice about side effects. You may report side effects to FDA at 5-518-VMO-7846. What other drugs will affect tiotropium inhalation? Other drugs may interact with tiotropium inhalation, including prescription and over-the-co unter medicines, eye drops, vitamins, and herbal products. Tell each of your health care pro viders about all medicines you use now and any medicine you start or stop using. Where can I get more information? Your pharmacist can provide more information about tiotropium inhalation. Remember, keep this and all other medicines out of the reach of children, never share your medicines with others, and use this medication only for the indication prescribed. Every effort has been made to ensure that the information provided by [employer]. ( '[employer]') is accurate, up-to-date, and complete, but no guarantee is made to that effect. Dr saba information contained herein may be time sensitive. Accountable information has been compiled for use by healthcare practitioners and consumers in the [place] and therefore [employer]able does not warrant that uses outside of the [place] are appropriate, unless specifically indicated otherwise. [employer] drug information does not endorse drugs, diagnose patients or recommend therapy. [employer] drug information is an informational resource designed [...] effective or appropriate for any given patient. [employer] does not assume any respon sibility for any aspect of healthcare administered with the aid of information [employer] provid es. The information contained herein is not intended to cover all possible uses, directions, precautions, warnings, drug interactions, allergic reactions, or adverse effects. If you bhakta ve questions about the drugs you are taking, check with your doctor, nurse or pharmacist. Copyright 9039-4960 [employer]. Version: 9.02. Revision date: 03/25/2015. Care instructions adapted under license by your healthcare professional. If you have questi ons about a medical condition or this instruction, always ask your healthcare professional. [facility] disclaims any warranty or liability for your use of this informatio n. documented in this encounter Progress Notes Dez Hansen MD,PhD - 10/02/2016 10:00 AM PDT Date: 10/02/2016 Primary Care Provider: Antony Ribera MD [facility] [address] [place] [address] Referring Provider: Antony Ribera MD [facility] [address] [place] [address] Ms. Adriana Flynn is a 71-year-old woman in the [facility] today for the follow up of Asthma. She was last seen in clinic on 01/03/2016. At that visit the plan was to: - Start ipratropium (nebs and MDI for travel) to replace or minimize albuterol - Increase budesonide to 1080 mcg daily (High dose) - Trial of montelukast - Continue intranasal Fluticasone - Asthma phenotyping with FeNo at next visit - Evaluate for allergic triggers - RTC in 6 months Subjective: When Ms. Flynn last visited the Pulmonary Clinic on 01/03/2016 her asthma was f elt to be Moderate Persistent with an acute exacerbation. After this appointment she was a dherent to the plan. She tried montelukast but had difficulty with abdominal pains and stopp ed using. She has been using high-dose inhaled corticosteroid without apparent adverse reac tions. Since this time, Ms. Flynn has not had any exacerbations, and she did not have to miss ariane rod because of her asthma. She has had no emergency department or unscheduled medical car e visits and there have been no hospitalizations. She has not been treated with antibiotics and has not received systemic steroids. Previously, Ms. Flynn's recent exacerbations have been characterized by increased dyspnea and increased wheezing as well as sputum, increased cough. Historically, triggers for her respiratory symptoms include noxious/fragrant odors, cold air and respiratory infections. She has had ongoing difficulty with chest congestion a nd coughing that is minimally or nonproductive. Her cough symptoms are worse at nighttime sh e describes the cough is barking. She has been using her controller medications regularly and has been using a combination of ipratropium, level albuterol for rescue.. Occasionally she uses albuterol for rescue. She h as noted extensive difficulty with racing heart and tremor when using racemic albuterol but she does not have these difficulties with levalbuterol. Her asthma control test score in clinic today is 19/25. Her most recent score recorded was /. She feels her response to treatment was Good . She has had proved control of her sinus symptoms with more regular use of intranasal steroi ds. Since her prior encounter with me she was also diagnosed with paroxysmal atrial fibrillatio n in the setting of her previously recognized atrial tachycardia. She has started therapy w ith rivaroxaban to reduce her risk of cerebrovascular accident. 1. In the past 4 weeks, how much time did your asthma keep you from getting as much done at work, school, or home? 4 - A little of the time 2. During the past 4 weeks, how often have you had shortness of breath? 5 - Not at all 3. During the past 4 weeks, how often did your asthma symptoms (wheezing, coughing, shortne ss of breath, chest tightness, or pain) wake you up at night or earlier than usual in the mo rning? 4 - Once or twice 4. During the Past 4 weeks, how often have you used your rescue inhaler or nebulizer medica tion (such as albuterol)? 2 - 1 or 2 times per day 5. How would you rate your asthma control during the past 4 weeks? 4 - Well controlled Total Score: 19 Score ?20 - well controlled Score ? [...] nostril three roxie es daily. lactobac b #[id number] 300-250 million cell-mg oral capsule Take by [...] tablet by mouth once daily with dinner. Vitamin A-Vitamin C-Vit E-Min (ANTIOXIDANT FORMULA) Oral Capsule take 1 capsule by oral route once daily with food VITAMIN D ORAL 2000 IU daily No current facility-administered medications for this visit. Past Social and Family History: Social History Substance Use Topics Smoking status: Never Smoker Smokeless tobacco: Never Used Comment: nonsmoker/parents smoked Alcohol use No Review of systems: As above. All other systems negative on a 10-point review. Physical Exam: Visit Vitals Item Reading BP 138/75 Pulse 66 Temp (Src) 36.7 C (98.1 F) (Forehead) RR 16 Ht 1.676 m (5' 5.98") Wt 70.8 kg (156 lb) SpO2 99% BMI 25.19 kg/(m^2) General: No acute distress SHANON: Normocephalic, PERRLA, EOMI, external ears without [...] Pulmonary Function Tests: Date FVC FEV1 Ratio [id number] RV ERV RV/TLC DLCO DLCO/AV 6MWT 10/22/2012 2.69 82% 1.75 70% 0.65 0.89 43% Post 2.62 1.91 +9% 0.73 1.37 +54% 10/02/16 2.32 76% 1.63 71% 0.70 0.98 54% Post 2.38 +2% 1.74 +7% 0.73 1.27 +29% I personally reviewed flow-volume loops and other tests. Could spirometry is most suggestiv e of a restrictive process; however in light of her history and airflow variability I suspec t there is some degree of air trapping producing a pseudo-restrictive pattern. She has a mo dest response to bronchodilator that is more significant in small airways. Exhaled nitric o xide was not performed as ordered. Assessment: This is a older woman with asthma that on the basis of history (ACT improved) and exam (imp roved) is best classified as moderate persistent and uncomplicated. Her present lung functio n tests fall short would absolutely convincing demonstration of abnormal airway reactivity h owever her airflow variability and significant small airway bronchodilator response remainin g consistent with this diagnosis. I am uncertain about her overall asthma phenotype/endotyp e. While improved, her asthma control is, nevertheless, not optimal. She has had difficulty to lerating racemic albuterol but seems to have done well with levalbuterol. While several tria ls have reported levalbuterol is equivalent to albuterol, this may not be the case in indivi dually selected patients. Levalbuterol has been shown to be more potent than racemic albute rol and may produce equivalent or better bronchodilation with lower total beta adrenergic ex posure. Given her response, it is reasonable for her to continue to use levalbuterol and ipr atropium for rescue. Because she does much better using nebulizer then with MDIs, I will als o prescribe her levalbuterol to use in her nebulizer. We discussed this in detail at this fa ce to face encounter. Because of her ongoing difficulty with atrial tachycardia, atrial fibrillation and tremor s he has been reluctant to consider the addition of a long-acting beta agonist. In light of t his, we will initiate therapy with a long-acting muscarinic antagonist: Tiotropium. While t here is a theoretical concern about the combination of ipratropium and tiotropium in and cli nical practice there is no evidence of reduced efficacy or increased toxicity with this comb ination. In the future we could consider the addition of a leukotriene modifier (zileuton) i f her symptoms are not better control with these changes. I continue to recommend that she c ontinue to use her antihistamine. We reviewed use of rescue vs controlling agents, oral and inhaled medications and potential side effects, critical need for compliance with treatment plan to achieve optimal results, and reviewed potential future medication changes and side effects. Encounter Diagnoses Name Primary? Moderate persistent asthma without complication Yes Albuterol adverse reaction, subsequent encounter Plan: - Levalbuterol for rescue - Start tiotropium mist - Continue budesonide to 1080 mcg daily (High dose) - RTC in 6 months I spent 30 minutes with Ms. Flynn, over half of which was spent in counseling her regarding her asthma and sinus complaints. Dez Hansen MD,PhD PULMONARY & CRITICAL CARE MEDICINE AT [address] Mailcode: [id number] [place] [id number] documented in this encounter Plan of Treatment Not on filedocumented as of this encounter Visit Diagnoses + + | Diagnosis | + + | Moderate persistent asthma without complication - Primary Unspecified asthma | + + | Albuterol adverse reaction, subsequent encounter | + + documented in this encounter
--- OUTSIDE RECORDS SUMMARY | ~2020-05-04 | XMS | Encounter Summary ---
Demographics + + + | Address | [address] | | | [place] [address] | + + + | Home Phone [...] + | Gene Gee | ECON | [address] | | | | | [place], | | | | | [place] [address] | | + + + + + Care Team Providers + +------+ + | Care Operator Helper Name | Role | Phone | + +------+ + | Alec Hill MD | PCP | | + +------+ + Encounter Details +--------+ + + + + | Date | Type | Department | Care Team | Description | +--------+ + + + + | 03/14/ | Ancillary | Registration 3181 | [facility], | | | 2006 | Registratio | [address] | [address] | | | | n | Driss Mailcode: [id number] | [place], [place] | | | | | [place], [place] | [address] | | | | | [address] | [phone] | | | | | [phone] | | | +--------+ + + + [...] | BASIC METABOLIC SET | Routin | 03/14/2007 | | Results for this | | (NA, K, CL, TCO2, | e | 2:09 PM | | procedure are in the | | BUN, CR, GLU, CA) | | PDT | | results section. | + +--------+ + + + | CBC ONLY | Routin | 03/14/2007 | | Results for this | | | e | 2:09 PM | | procedure are in the | | | | PDT | | results section. | + +--------+ + + + | 12 LEAD ECG | Routin | 03/14/2007 | | Results for this | | | e | 11:19 AM | | procedure are in the | | | | PDT | | results section. | + +--------+ + + + documented in this encounter Results CBC ONLY WITH PLATELET (03/14/2007 2:09 PM PDT) + +-------+ + + + | Component | Value | Ref Range | Performed | Pathologist | | | | | At | Signature | + +-------+ + + + | WHITE CELL | 7.3 | 4.4 - 11.0 K/cu | [facility] | | | COUNT | | mm | DEPARTMENT | | | | | | OF | | | | | | PATHOLOGY | | + +-------+ + + + | RED CELL | 4.75 | 4.00 - 5.20 | [facility] | | | COUNT | | M/cu mm | DEPARTMENT | | | | | | OF | | | | | | PATHOLOGY | | + +-------+ + + + | HEMOGLOBIN | 14.6 | 12.0 - 16.0 | [facility] | | | | | g/dL | DEPARTMENT | | | | | | OF | | | | | | PATHOLOGY | | + +-------+ + + + | HEMATOCRIT | 43.5 | 36.0 - 46.0 % | [facility] | | | | | | DEPARTMENT | | | | | | OF | | | | | | PATHOLOGY | | + +-------+ + + + | MCV | 91.4 | 80.0 - 96.0 fL | [facility] | | | | | | DEPARTMENT | | | | | | OF | | | | | | PATHOLOGY | | + +-------+ + + + | MCHC | 33.7 | 33.4 - 35.5 | [facility] | | | | | g/dL | DEPARTMENT | | | | | | OF | | | | | | PATHOLOGY | | + +-------+ + + + | RDW | 12.1 | 11.5 - 15.0 % | [facility] | | | | | | DEPARTMENT | | | | | | OF | | | | | | PATHOLOGY | | + +-------+ + + + | PLATELET | 166 | 150 - 400 K/cu | [facility] [...] + + + + | [facility] DEPARTMENT OF | [address] [facility] | [place] [address] | | | PATHOLOGY | [address] | | | + + + + + | [facility] DEPARTMENT OF | [address] | [place] [address] | | | PATHOLOGY | [address] | | | + + + + + BASIC METABOLIC SET (NA,K,CL,BUN,CR,GLU,CO2,CA) (03/14/2007 2:09 PM PDT) + +-------+ + + + | Component | Value | Ref Range | Performed | Pathologist | | | | | At | Signature | + +-------+ + + + | GLUCOSE, | 88 | 60 - 99 mg/dL | [facility] [...] +-------+ + + + | SODIUM, | 139 [...] +-------+ + + + | CHLORIDE, | 102 [...] +-------+ + + + | CALCIUM, | 9.9 | 8.5 - 10.5 | [facility] | [...] Performed At | + + + | [id number] Estimated GFR > 60 mL/min/1.73 sq m if non- | [facility] | | [id number] Estimated GFR > 60 mL/min/1.73 sq m [...] | + + + + + | [facility] | [address] | [place] [address] | | | PATHOLOGY | [address] | | | + + + + + | [facility] | [address] [facility] [address] | [place] [address] | | | PATHOLOGY | [address] | | | + + + + + 12 LEAD ECG (03/14/2007 11:19 AM PDT) + + + + + [...] + + + + | P-R | 208 | ms | [facility] | | | INTERVAL | | | OF | | | | | | CARDIOLOGY | | + + + + + + | QRS | 100 | ms | [facility] | | | DURATION | | | OF | | | | | | CARDIOLOGY | | + + + + + + | QT | 408 | ms | [facility] | | | | | | OF | | | | | | CARDIOLOGY | | + + + + + + | QTC | 427 | ms | [facility] | | | | | | OF | | | | | | CARDIOLOGY | | + + + + + + | P AXIS | 67 | degrees | [facility] | | | | | | OF | | | | | | CARDIOLOGY | | + + + + + + | R AXIS | 92 | degrees | [facility] | | | | | | OF | | | | | | CARDIOLOGY | | + + + + + + | T AXIS | 55 | degrees | [facility] | | | | | | OF | | | | | | CARDIOLOGY | | + + + + + + | EKG | Normal sinus | | [facility] | | | DIAGNOSIS | rhythmRightward axisLow | | OF | | | | voltage QRSBorderline | | CARDIOLOGY | | | | ECG"I have personally | | | | | | interpreted this report, | | | | | | either alone or with a | | | | | | trainee."Confirmed by | | | | | | JAMES HOLT ([id number]) on | | | | | | 14-Mar-2007 20:40:24 | | | | + + + [...] + | [facility] OF | [address] | [place], [place] | | | CARDIOLOGY | [address] | [address] | | + + + + + | [facility] OF | [address] | [place], [place] | | | CARDIOLOGY | [address] | [address] | | + + + + + documented in this encounter Visit Diagnoses Not on filedocumented in this encounter
--- OUTSIDE RECORDS SUMMARY | ~2020-05-04 | XMS | Encounter Summary ---
Demographics + + + | Address | [address] | | | [place] [address] | + + + | Home Phone [...] + | Gene Gee | ECON | [address] | | | | | [place], | | | | | [place] [address] | | + + + + + Care Team Providers + +------+ + | Care Corridor Redevelopment Manager Name | Role | Phone | [...] | | extremities | [address] | [address] [place], | | | | | with other | [place], [place] | [place] | | | | | complication | [address] | [address] | | | | | s | Phone: | Phone: | | | | | Procedures | [phone] | [phone] | | | | | REQUEST TO | Fax: | Fax: | | | | | SURGERY | [phone] | [phone] | | | | | [facility] | | | +--------+--------+ + + + + Reason for Visit + + + | Reason | Comments | + + + | Varicose veins of | very symptomatic | | lower extremity | | + + + Consultation (Routine) +--------+--------+ + + + + | Status | Reason | Specialty | Diagnoses / | Referred By | Referred To | | | | | Procedures | Contact | Contact | +--------+--------+ + + + + | Closed | | Vascular | Diagnoses | | Vas Vein | | | | Surgery | Varicose | [facility] [place] | [facility] | | | | | veins | MD Bradley | [address] | | | | | Procedures | [address] | [facility] | | | | | CONSULT TO | Ave | for Health | | | | | SURGERY - | [place], [place] | and Healing, | | | | | VASCULAR | [address] | [address], | | | | | | Phone: | 5th Floor | | | | | | [phone] | [place], [place] | | | | | | Fax: | [address] | | | | | | [phone] | Phone: | | | | | | | [phone] | | | | | | | Fax: | | | | | | | [phone] | +--------+--------+ + + + + Encounter Details +--------+---------+ + + + | Date | Type | Department | Care Team | Description | +--------+---------+ + + + | 07/27/ | Office | Vascular Surgery | Red Chambers MD | Varicose veins of | | 2009 | Visit | Vein Clinic at [facility] | [address] | lower extremities | | | | [address] | [address] [place], | with other | | | | [facility] | [place] [address] | complications | | | | and Healing, | [phone] | (Primary Dx) | | | | Building | | | | | | Floor [place], [place] | | | | | | [address] | | | | | | [phone] | | | +--------+---------+ + + + [...] as of this encounter Progress Notes Red Chambers MD - 07/27/2009 2:31 PM PST [facility] Referring Physician: Latosha RIBERA MD History: Ms. Flynn is a 63 y.o. female who has left thigh and calf varicose veins, causing increasing symptoms of pain and aching. The patient had prior vein surgery in [place] a bout 25 years ago. She has multiple medical issues as stated below, with breast cancer as th e most recent issue. She has completed her chemotherapy, and would like to pursue more defin itive treatment for the veins to alleviate the pain. She had a significant past history of r ight calf DVT. She also had a pulmonary embolus (probably asymptomatic, diagnosed during wor k up for potential pulmonary hypertension). The patient eventually was ruled out for pulmona ry hypertension. Ms. Flynn was previously on warfarin, but this was discontinued. Ms. Flynn has been having impairment in her daily activities, due to the varicose veins and significan t discomfort. The patient only is able to stand for several hours, and she has to perform fr equent elevation of the legs. Very active, exercises several times per week. Rides an exercise bike, and walks outside. N o bleeding problems, no kidney problems. Past Medical History Diagnosis Date Sjogrens syndrome [...] [facility] ablation 12/16/2004,09/21/2005 Dr. Fuentes, [facility] Current outpatient prescriptions Medication Sig Dispense Refill anastrozole (ARIMIDEX) 1 mg Oral Tablet Take 1 Tab by mouth once daily. 90 2 atenolol 25 mg Oral Tablet Take 25 mg by mouth once daily. budesonide (PULMICORT FLEXHALER) 180 mcg/Inhalation Inhalation Aerosol Powdr Breath Act ivated Inhale 1 Puff two times daily. 2 puffs in the am and 1 puff in the pm day supply 4 calcium citrate-vitamin D (CITRACAL + D) 315-200 mg-unit Oral Tablet 2 tabs twice a day Docusate Sodium (STOOL SOFTENER) 100 mg Oral Capsule 1 pill by mouth 2 X per day DOFETILIDE 500 mcg Oral Capsule Take 1 Cap by mouth two times daily. 60 6 fluticasone (FLONASE) 50 mcg/Actuation Nasal [place], Suspension Instill 2 Sprays into ea ch [...] Intestinal discomfort Propafenone unknown Tape Adherent Rash PHYSICAL EXAMINATION: The patient is a WDWN female in no apparent distress. The bowel sound s are normoactive. The abdomen is soft, nondistended, and nontender. There are no palpable m asses or aneurysms. Both legs are warm and pink. There is no cyanosis, clubbing, or edema. T he capillary refill is less than 2 seconds. 2+ radial, femoral, popliteal, and PT pulses adwoa aterally. Motor 5/5 all extremities. The left leg has moderate to large varicose veins along the medial left thigh and calf. There are 2 clusters, one along the medial left calf, and t he other along the posterolateral calf. Both of these meet at the knee and empty into a refl uxing left GSV. The diameter of the left great saphenous vein is up to 8mm, and the diameter of the varicose veins measure up to 10mm. VASCULAR LAB DATA: I reviewed the chronic venous duplex and DVT scan showing left calf DVT. Severe reflux in the left GSV. ASSESSMENT AND PLAN: Symptomatic left leg varicose vein recurrence with left GSV severe julian vular insufficiency. Options for left GSV stripping and microphlebectomy versus endovenous r adiofrequency ablation of the left GSV and microphlebectomy versus continued petroleum terminal plant operator compr ession stockings were discussed. I had an extensive PARQ conference with the patient. The tr eatment, alternatives, and risks were discussed. All questions were answered. They wish to p roceed with left GSV endovenous radiofrequency ablation and left leg microphlebectomy. Risks of DVT, nerve injury, recurrence, hematoma, infection, inability to remove all the veins we re discussed and they wish to proceed. I spent over 45 minutes with the patient, performing a history and physical examination. Over half of the time was spent in counseling. Will Rx with prophylactic doses of enoxaparin to start after the vein surgery, for the prio r history of DVT. 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
--- OUTSIDE RECORDS SUMMARY | ~2020-05-04 | XMS | Encounter Summary ---
Demographics + + + | Address | [address] | | | [place] [address] | + + + | Home Phone [...] + | Gene Sahil | ECON | [address] | | | | | [place], | | | | | [place] [address] | | + + + + + Care Team Providers + +------+ + | Care Screener And Blender Name | Role | Phone | + +------+ + | Antony Ribera MD | PCP | | + +------+ + Encounter Details +--------+ + + + + | Date | Type | Department | Care Team | Description | +--------+ + + + + | 09/05/ | Procedure - | Surgical Oncology | [facility], | OP REPORT-TEACHING | | 2007 | | at [facility] [address] | [address] | | | | Transcribed | Ave Center for | [place], [place] | | | | | Health and Healing, | [address] | | | | | [address] | [phone] | | | | | [place], [place] | | | | | | [address] | | | | | | [phone] | | | +--------+ + + + [...] + documented as of this encounter Procedure Henri [facility] - 09/05/2007 12:00 AM PSTAssociated Order(s): TEACHING PHYSICIAN [id number] SAHIL Holman [id number] Date: 09/05/2007 Attending Surgeon: [facility] M.D. Wire Machine Cutter(s): Postoperative Diagnosis(es): Procedures Performed: Excision of left infraclavicular MediPort. I was present and scrubbed for the entire case. [facility] M.D. RP / [id number] / [id number] / [id number] / Electronically signed by [facility] 03-18-2008 01:17:27 PM documented in this e ncounter Plan of Treatment Not on filedocumented as of this encounter Procedures + +--------+ + + + | Procedure Name | Priori | Date/Time | Associated Diagnosis | Comments | | | ty | | | | + +--------+ + + + | TEACHING PHYSICIAN | | 09/05/2007 | | Results for this | | | | 12:00 AM | | procedure are in the | | | | PST | | results section. | + +--------+ + + + documented in this encounter Results TEACHING PHYSICIAN (09/05/2007 12:00 AM PST) + + + | Narrative | Performed At | + + + | [id number] | | | [id number] SAHIL | | | ADRIANA Holman [id number] Date: | | | 09/05/2007 Attending Surgeon: | | | [facility] M.D. Wire Machine Cutter(s): Postoperative | | | Diagnosis(es): Procedures Performed: Excision of left | | | infraclavicular MediPort. I was present and scrubbed for the | | | entire case. [facility] M.D. / | | | HS [id number] / [id number] / [id number] / | | | Electronically signed by [facility] 03-18-2008 01:17:27 | | | PM | | + + + + + | Procedure Note | + + | [facility] MD - 09/05/2007 12:00 AM PST [id number] | | [id number] SAHIL Holman | | [id number] Date: 09/05/2007 Attending Surgeon: Henri | | Decl[facility] Wire Machine Cutter(s): Postoperative Diagnosis(es): Procedures | | Performed:Excision of left infraclavicular MediPort. I was present and scrubbed for the | | entire case. [facility] M.D. RP / [id number] / [id number] / [id number] /D: | | 09/05/2007T: 09/06/2007 Electronically signed by [facility] 03-18-2008 01:17:27 | | PM | | | | | |Wire Machine Cutter(s): | | | | | |Postoperative Diagnosis(es): | | | | | |Procedures Performed: | |Excision of left infraclavicular MediPort. | | | | | |I was present and scrubbed for the entire case. | | | | | | | | | | | | | | | | | |[facility] M.D. | | | | | |RP / HS | |[id number] / [id number] / [id number] / | | | | | | | | | | | | | | | | | |Electronically signed by [facility] 03-18-2008 01:17:27 PM | | | | | + + documented in this encounter Visit Diagnoses Not on filedocumented in this encounter"
--- OUTSIDE RECORDS SUMMARY | ~2020-05-04 | XMS | Encounter Summary ---
Demographics + + + | Address | [address] | | | [place] [address] | + + + | Home Phone [...] + | Gene Gee | ECON | [address] | | | | | [place], | | | | | [place] [address] | | + + + + + Care Team Providers + +------+ + | Care Air Bag Curer Name | Role | Phone | + +------+ + | Antony Ribera MD | PCP | | + +------+ + Encounter Details +--------+ + + + + | Date | Type | Department | Care Team | Description | +--------+ + + + + | 06/13/ | Office | [facility] | Clinic, Hepatology | Progress Note | | 2006 | [...] as of this encounter Progress Notes Interface, Credit Portfolio Manager In - 06/20/2006 2:32 AM [facility] [id number] JONATHANPARK AGUILAR Manda [id number] Clinic Date: 06/13/2006 Clinic: Hepatology Diagnoses: 1. Large hepatic cyst. 1.1. Status post surgical treatment in June 2004. 1.2. It was complicated postoperatively by a small-bowel obstruction which resolved spontaneously. 2. Ectopic atrial tachycardia with attempted radiofrequency ablation in December 2004 that was not successful. Currently, she is being controlled on cardiac medications. 3. Sjogren's diagnosed in 1998. 4. Fibromyalgia. 5. Mitral valve prolapse. 6. Reflux disease. 7. Asthma. 8. Temporomandibular joint. 9. Fibrocystic breast disease. 10. History of diverticulitis status post colon resection. 11. Skin cancer on the back. 12. Appendectomy. 13. Ectopic . 14. Endometriosis status post hysterectomy. 15. Cholecystectomy. 16. Surgical hernia repair. 17. History of lysis of adhesions. Current Medications: 1. Estrace 0.075 mg patch. 2. Protonix 40 mg twice a day. 3. Atenolol 25 mg a day. 4. Pulmicort, Spiriva, Combivent, and Flonase. 5. Ultram p.r.n. 6. Rythmol 200 mg 3 times a day. Allergies: CIPRO, SULFA, FLECAINIDE, AND PROPAFENONE. Subjective: Ms. Flynn returns today for followup. I have not seen her for a couple of years. Overall, from a liver standpoint, she is doing well. She underwent a recent CT scan in February 2006 which showed that she has numerous unchanged hepatic cysts, but otherwise overall from a liver standpoint is doing well. She did have in February 2006 about where her liver enzymes went up slightly, but shortly thereafter it returned back to normal. Her main issue has been as of February 2006, she did have the bout of diarrhea potentially from a gastroenteritis and since then she has been having continued problems with diarrhea and bilateral lower abdominal pain. She has as of February 2006 has been undergoing through a trial related to her family tragedy and she feels a lot of her symptoms are related to that, and I would not be surprised that she does not have a component of irritable bowel syndrome. Interestingly, she has been on antibiotics intermittently which has helped with the abdominal pain, but I suspect may also be causing some of her problems with diarrhea. They have not been able to culture any bacteria out of her stool studies apparently. Her most recent CT scan also showed ill-defined soft tissue slightly nodular. It turns in the rightward aspect of the pelvis that indents into the colon, and there is some bowel thickening, and she is here for further evaluation of that as well. Review of Systems: Otherwise negative. Social History: She is here with her . No alcohol, tobacco, or IV drug use. Family Medical History: Noncontributory. Physical Examination: General: Pleasant female in no apparent distress. Vital Signs: Blood pressure 127/70, pulse 66, respiratory rate 16, temperature is 97.2, weight is 140 pounds, and height is 5 feet inches. Skin: Without spider angiomata. No evidence of jaundice. HEENT: Sclerae anicteric. Neck: Supple. Lungs: Clear to auscultation. Cardiovascular: Regular rhythm. Abdomen: Normoactive bowel sounds. Soft, nontender, and nondistended, without hepatosplenomegaly. Extremities: No cyanosis, clubbing, or edema. Laboratory Data: None recently, and we will need to obtain those tests. CT scan results as outlined above. Assessment: Ms. Flynn is here for further evaluation and followup. From a liver standpoint, things are quite stable, however, she did have a bout of slight elevation of her liver enzymes. I think we will need to repeat her liver test today. Her main issue is her bowel problems, abdominal pain with diarrhea. I expect there may be a component of irritable bowel syndrome. I have asked her to add more fiber in her diet. I have asked her to do this by having oat meal at least on a daily basis. I have asked her to avoid other fiber supplementation because it may be causing more gas and bloating. In addition, I will give her a trial of Levsin to see if this helps with some of her abdominal pain. However, I think we do need to go ahead and proceed with a colonoscopy to evaluate for any bowel pathology, and we will need to schedule this. Plan: 1. As outlined above, we will give her a trial of Levsin. 2. Fiber supplementation as outlined above. 3. Repeat complete metabolic profile, CBC, and her platelet count differential. 4. Schedule the patient a colonoscopy. At the of colonoscopy, we will review her blood work and also see how she is doing from a symptomatic standpoint. Bob Reyna M.D. [place] / FRANCA [id number] / [id number] / [id number] / cc: Antony Ribera M.D. [address] [id number] Electronically signed by Bob Reyna 06-19-2006 03:37:04 PM documented i n this encounter Plan of Treatment Not on filedocumented as of this encounter Visit Diagnoses Not on filedocumented in this encounter"
--- OUTSIDE RECORDS SUMMARY | ~2020-05-04 | XMS | Encounter Summary ---
Demographics + + + | Address | [address] | | | [place] [address] | + + + | Home Phone [...] + | Gene Gee | ECON | [address] | | | | | [place], | | | | | [place] [address] | | + + + + + Care Team Providers + +------+ + | Care Animal Care Supervisor Name | Role | Phone | + +------+ + PCP | Unavailable | + +------+ + Encounter Details +--------+ + + + + | Date | Type | Department | Care Team | Description | +--------+ + + + + | 07/03/ | Results | | [facility] | | | 2003 | Only | | [address] | | | | | | [address] | | | | | | [place] [address] | | +--------+ + + + + [...] | BASIC METABOLIC SET | Urgent | 07/03/2004 | | Results for this | | (NA, K, CL, TCO2, | | 4:15 PM | | procedure are in the | | BUN, CR, GLU, CA) | | PST | | results section. | + +--------+ + + + | PHOSPHORUS, PLASMA | Urgent | 07/03/2004 | | Results for this | | | | 4:15 PM | | procedure are in the | | | | PST | | results section. | + +--------+ + + + documented in this encounter Results BASIC METABOLIC SET (07/03/2004 4:15 PM PST) + +---------+ + + + | Component | Value | Ref Range | Performed | Pathologist | | | | | At | Signature | + +---------+ + + + | GLUCOSE, | 133 (H) | 65 - 110 mg/dL | [...] + + + + + | [facility] DEPARTMENT OF | [address] | [place] [address] | | | PATHOLOGY | [address] | | | + + + + + | [facility] DEPARTMENT OF | [address] | [place] [address] | | | PATHOLOGY | [address] | | | + + + + + PHOSPHORUS, PLASMA (07/03/2004 4:15 PM PST) + +-------+ + + + | Component | Value | Ref Range | Performed | Pathologist | | | | | At | Signature | + +-------+ + + + | PHOSPHORUS, | 2.4 | 2.4 - 4.7 mg/dL | [facility] [...] | + + + + + | [facility] | [facility] | [place] [address] | | | PATHOLOGY | [address] | | | + + + + + | [facility] | [facility] | [place] [address] | | | PATHOLOGY | [address] | | | + + + + + documented in this encounter Visit Diagnoses Not on filedocumented in this encounter"
--- OUTSIDE RECORDS SUMMARY | ~2020-05-04 | XMS | Encounter Summary ---
Demographics + + + | Address | [address] | | | [place] [address] | + + + | Home Phone [...] + | Gene Gee | ECON | [address] | | | | | [place], | | | | | [place] [address] | | + + + + + Care Team Providers + +------+ + | Care Advertising Copy Writer Name | Role | Phone | + +------+ + | Antony Ribera MD | PCP | | + +------+ + Encounter Details +--------+ + + + + | Date | Type | Department | Care Team | Description | +--------+ + + + + | 06/22/ | Abstract | Cardiology | Monique Middleton, | | | 2010 | | Arrhythmia at [facility] | HAT MARKER | | | | | [address] | | | | | | [place] for [facility] | | | | | | and Healing, | | | | | | Building | | | | | | Floor [place], [place] | | | | | | [address] | | | | | | [phone] | | | +--------+ + + + [...] + | CBC, WITH | Routin | 06/21/2011 | | Results for this | | DIFFERENTIAL | e | | | procedure are in the | | | | | | results section. | + +--------+ + + + | COMPLETE METABOLIC | Routin | 06/21/2011 | | Results for this | | SET | e | | | procedure are in the | | (NA,K,CL,CO2,BUN,CRE | | | | results section. | | AT,GLUC,CA,AST,ALT,B | | | | | | DANICA TOTAL,ALK | | | | | | PHOS,ALB,PROT TOTAL) | | | | | + +--------+ + + + | FREE T4 | Routin | 06/21/2011 | | Results for this | | | e | | | procedure are in the | | | | | | results section. | + +--------+ + + + | LIPID SET (TRIG, T | Routin | 06/21/2011 | | Results for this | | CHOL, HDL, CALC LDL) | e | | | procedure are in the | | | | | | results section. | + +--------+ + + + documented in this encounter Results CBC, WITH DIFFERENTIAL (06/21/2011) + +-------+ + + + | Component | Value | Ref Range | Performed | Pathologist | | | | | At | Signature | + +-------+ + + + | WHITE CELL | 6.2 | K/cu mm | NON [facility] | | | COUNT | | | LAB | | + +-------+ + + + | RED CELL | 4.94 | M/cu mm | [facility] | | | COUNT | | | LAB | | + +-------+ + + + | HEMOGLOBIN | 14.9 | 12.1999 - 15 | NON [facility] | | | | | g/dL | LAB | | + +-------+ + + + | HEMATOCRIT | 43.9 | % | NON [facility] | | | | | | LAB | | + +-------+ + + + | MCV | 88.9 | fL | NON [facility] | | | | | | LAB | | + +-------+ + + + | MCH | 30 | pg | [facility] | | | | | | LAB | | + +-------+ + + + | MCHC | 34 | g/dL | NON [facility] | | | | | | LAB | | + +-------+ + + + | PLATELET | 183 | K/cu mm | NON [facility] | | | COUNT | | | LAB | | + +-------+ + + + | NEUTROPHIL | 54.5 | % | NON [facility] | | | % | | | LAB | | + +-------+ + + + | LYMPHOCYTE | 36.6 | % | NON [facility] | | | % | | | LAB | | + +-------+ + + + | MONOCYTE % | 5.3 | % | NON [facility] | | | | | | LAB | | + +-------+ + + + | EOS % | 2.9 | % | [facility] | | | | | | LAB | | + +-------+ + + + | BASO % | 0.6 | % | [facility] | | | | | | LAB | | + +-------+ + + + | RDW | 14.0 | % | NON [facility] | | | | | | LAB | | + +-------+ + + + | A/G RATIO | 1.6 | | NON [facility] | | | | | | LAB | | + +-------+ + + + | BILIRUBIN | 0.1 | mg/dL | NON [facility] | | | DIRECT | | | LAB | | + +-------+ + + + | PHOSPHORUS, | 3.6 | mg/dL | NON [facility] | | | PLASMA | | | LAB | | | (LAB) | | | | | + +-------+ + + + | ESTIMATED | >60 | | NON [facility] | | | GFR | | | LAB | | + +-------+ + + + | ANION GAP | 11.3 | | NON [facility] | | | | | | LAB | | + +-------+ + + + | OSMOLALITY, | 272 | | NON [facility] | | | CALCULATED | | | LAB | | + +-------+ + + + | CALCIUM | 4.4 | | NON [facility] | | | IONIZED | | | LAB | | | LEVEL SERUM | | | | | + +-------+ + + + + + | Specimen | + + | Blood - Blood | + + + +---------+ + + | Performing | Address | City/State/Zipcode | Phone Number | | Organization | | | | + +---------+ + + | [facility] | | | | + +---------+ + + FREE T4, SERUM (06/21/2011) + +-------+ + + + | Component | Value | Ref Range | Performed | Pathologist | | | | | At | Signature | + +-------+ + + + | FREE T4, | 6.3 | ng/dL | [facility] | | | SERUM | | | LAB | | + +-------+ + + + | MAGNESIUM,P | 1.9 | mg/dL | NON [facility] | | | LASMA | | | LAB | | + +-------+ + + + | TSH | 2.24 | uIU/ml | NON [facility] | | | | | | LAB | | + +-------+ + + + | VITAMIN D | 47 | ng/mL | NON [facility] | | | 25 HYDROXY | | | LAB | | + +-------+ + + + + + | Specimen | + + | Blood - Blood | + + + +---------+ + + | Performing | Address | City/State/Zipcode | Phone Number | | Organization | | | | + +---------+ + + | NON [facility] | | | | + +---------+ + + COMPLETE METABOLIC SET (NA,K,CL,CO2,BUN,CREAT,GLUC,CA,AST,ALT,BILI TOTAL,ALK PHOS,ALB,PROT TOTAL) (06/21/2011) + +-------+ + + + | Component | Value | Ref Range | Performed | Pathologist | | | | | At | Signature | + +-------+ + + + | GLUCOSE, | 77 | 65 - 110 mg/dL | [facility] | | | PLASMA | | | LAB | | | (LAB) | | | | | + +-------+ + + + | BUN, PLASMA | 14 | mg/dL | NON [facility] | | | (LAB) | | | LAB | | + +-------+ + + + | CREATININE | 0.71 | mg/dL | NON [facility] | | | PLASMA | | | LAB | | | (LAB) | | | | | + +-------+ + + + | TOTAL | 6.6 | g/dL | NON [facility] | | | PROTEIN, | | | LAB | | | PLASMA | | | | | | (LAB) | | | | | + +-------+ + + + | ALBUMIN, | 4.1 | g/dL | NON [facility] | | | PLASMA | | | LAB | | | (LAB) | | | | | + +-------+ + + + | CALCIUM, | 9.7 | mg/dL | NON [facility] | | | PLASMA | | | LAB | | | (LAB) | | | | | + +-------+ + + + | BILIRUBIN | 0.7 | Transcutaneous | NON [facility] | | | TOTAL | | Bilirubinometer | LAB | | + +-------+ + + + | ALK PHOS | 57 | U/L | NON [facility] | | | | | | LAB | | + +-------+ + + + | AST(SGOT) | 21 | U/L | NON [facility] | | | | | | LAB | | + +-------+ + + + | SODIUM, | 141 | mmol/L | NON [facility] | | | PLASMA | | | LAB | | | (LAB) | | | | | + +-------+ + + + | POTASSIUM, | 4.3 | mmol/L | NON [facility] | | | PLASMA | | | LAB | | | (LAB) | | | | | + +-------+ + + + | CHLORIDE, | 109 | mmol/L | NON [facility] | | | PLASMA | | | LAB | | | (LAB) | | | | | + +-------+ + + + | TOTAL CO2, | 25 | mmol/L | NON [facility] | | | PLASMA | | | LAB | | | (LAB) | | | | | + +-------+ + + + | ALT (SGPT) | 17 | U/L | NON [facility] | | | | | | LAB | | + +-------+ + + + + + | Specimen | + + | Blood - Blood | + + + +---------+ + + | Performing | Address | City/State/Zipcode | Phone Number | | Organization | | | | + +---------+ + + | NON [facility] | | | | + +---------+ + + LIPID SET (TRIG, T CHOL, HDL, CALC LDL) (06/21/2011) + +-------+ + + + | Component | Value | Ref Range | Performed | Pathologist | | | | | At | Signature | + +-------+ + + + | CHOLESTEROL | 247 | <200 mg/dL | NON [facility] | | | (LAB) | | | LAB | | + +-------+ + + + | TRIGLYCERID | 74 | mg/dL | NON [facility] | | | ES | | | LAB | | + +-------+ + + + | HDL | 52 | mg/dL | [facility] | | | CHOLESTEROL | | | LAB | | + +-------+ + + + | VLDL | 15 | mg/dL | [facility] | | | CHOLESTEROL | | | LAB | | + +-------+ + + + | LDL | 180 | <100 mg/dL | NON [facility] | | | CHOLESTEROL | | | LAB | | | , | | | | | | CALCULATED | | | | | + +-------+ + + + | NON-HDL | 195 | | NON [facility] | | | CHOLESTEROL | | | LAB | | + +-------+ + + + | CHOL/HDL | 4.8 | | NON [facility] | | | RATIO | | | LAB | | + +-------+ + + + + + | Specimen | + + | Blood - Blood | + + + +---------+ + + | Performing | Address | City/State/Zipcode | Phone Number | | Organization | | | | + +---------+ + + | NON [facility] | | | | + +---------+ + + documented in this encounter Visit Diagnoses Not on filedocumented in this encounter"
--- OUTSIDE RECORDS SUMMARY | ~2020-05-04 | XMS | Encounter Summary ---
Demographics + + + | Address | [address] | | | [place] [address] | + + + | Home Phone [...] + | Gene Gee | ECON | [address] | | | | | [place], | | | | | [place] [address] | | + + + + + Care Team Providers + +------+ + | Care Hand Cell Tuber Name | Role | Phone | + +------+ + | Antony Ribera MD | PCP | | + +------+ + Encounter Details +--------+ + + + + | Date | Type | Department | Care Team | Description | +--------+ + + + + | 07/25/ | Office | [facility] | Nurse5, Hem [address] | | | 2007 | Visit-ECX | Clinics at S | [address] | | | | | [address] | [place] [address] | | | | | [facility] | Chr18, [address] | | | | | Health and Healing, | [address] [place], | | | | | [address] | [place] [address] | | | | | [place], [place] | | | | | | [address] | | | | | | [phone] | | | +--------+ + + + [...] | Blood Pressure | 118/62 | 07/25/2007 9:08 AM | | | | | PST | | + + + + + | Pulse | 69 | 07/25/2007 9:08 AM | | | | | PST | | + + + + + | Temperature | 36.7 C (98 F) | 07/25/2007 9:08 AM | | | | | PST [...] 68 kg (149 lb 14.6 | 07/25/2007 9:08 AM | | | | oz) | [...]
--- OUTSIDE RECORDS SUMMARY | ~2020-05-04 | XMS | Encounter Summary ---
Demographics + + + | Address | [address] | | | [place] [address] | + + + | Home Phone [...] + | Gene Gee | ECON | [address] | | | | | [place], | | | | | [place] [address] | | + + + + + Care Team Providers + +------+ + | Care Operations Logistics Analyst Name | Role | Phone | + +------+ + | Antony Ribera MD | PCP | | + +------+ + Encounter Details +--------+ + + + + | Date | Type | Department | Care Team | Description | +--------+ + + + + | 09/11/ | Irrigationist | ECHO/EKG | Monique Middleton, | Pulmonary | | 2008 | | Rehabilitation [address] | BATCH TESTER | Hypertension (HCC) | | | | [address] | | (Primary Dx) | | | | Mailcode: [facility] | | | | | | [facility] | | | | | | and Healing, | | | | | | Building | | | | | | Floor [place], [place] | | | | | | [address] | | | | | | [phone] | | | +--------+ + + + [...] | | + +------+--------+ + + | CARDIAC LINK TRAINER OPERATOR | ECG | Routin | Pulmonary | Ordered: 09/11/2008 | | | | e | Hypertension (HCC) | | + +------+--------+ + + documented as of this encounter Visit Diagnoses + + | Diagnosis | + + | Pulmonary hypertension (HCC) - Primary Other chronic pulmonary heart diseases | + + documented in this encounter"
--- OUTSIDE RECORDS SUMMARY | ~2020-05-04 | XMS | Encounter Summary ---
Demographics + + + | Address | [address] | | | [place] [address] | + + + | Home Phone [...] + | Gene Gee | ECON | [address] | | | | | [place], | | | | | [place] [address] | | + + + + + Care Team Providers + +------+ + | Care Fiber Locking Supervisor Name | Role | Phone | [...] | Closed | | | | | [facility] | | | | | | | Proc Unit | | | | | | | [address] | | | | | | [address] | | | | | | | Mailcode: [facility] | | | | | | | [facility] | | | | | | | for Health | | | | | | | and Healing, | | | | | | | Building [address] | | | | | | | [place], [place] | | | | | | | [address] | | | | | | | Phone: | | | | | | | [phone] | | | | | | | Fax: | | | | | | | [phone] | +--------+--------+ + + + + Encounter Details +--------+ + + + + | Date | Type | Department | Care Team | Description | +--------+ + + + + | 10/20/ | Hospital | [facility] | Ki Lo | | | 2008 | Encounter | [address] | MD De[address] | | | | | [address] Mailcode: [facility] | [address] [place], | | | | | [facility] | [place] [address] | | | | | Health and Healing, | [phone] | | | | | [address] | | | | | | [place], [place] | | | | | | [address] | | | | | | [phone] | | | +--------+ + + + [...] + + + | Blood Pressure | 108/64 | 10/20/2008 8:58 AM | | | | | PDT | | + + + + + | Pulse | 85 | 10/20/2008 8:58 AM | | | | | PDT | | + + + + + | Temperature | - | - | | + + + + + | Respiratory Rate | 16 | 10/20/2008 8:58 AM | | | | | PDT | | + + + + + | Oxygen Saturation | - | - | | + + + + + | Inhaled Oxygen | - | - | | | Concentration | | | | + + + + + | Weight | 65.8 kg (145 lb) | 10/20/2008 7:28 AM | | | | | PDT | | + + + + + | Height | 167.6 cm (5' 6") | 10/20/2008 7:28 AM | | | | | PDT | | + + + + + | Body Mass Index | 23.4 | 10/20/2008 7:28 AM | | | | | PDT | | + + + + + documented in this encounter Discharge Summaries Other, Faculty - 10/20/2008 9:09 AM PDT documented in this encounter Discharge Instructions Instructions Batsheva Buitrago RN - 10/20/2008 [facility] Endoscopy [address] [place] [id number] Toll Free ext: [phone] Home Care Instructions after Colonoscopy Medications You have received sedation medications. These medications can cause you to be forgetful and drowsy and will take the remainder of the day to wear off. DO NOT drink alcohol, drive, ope rate heavy machinery, sign legal documents, or make major decisions until tomorrow. You may resume your usual medications unless told otherwise. Common After Effects It is common to have mild abdominal pain, bloating, and excessive gas. This is caused by the air that was put in your colon during the procedure. These symptoms will improve as you pass gas. Diet You may resume eating, but start with small meals of soft foods and liquids. Scrambled eggs and mashed potatoes are good examples. If you tolerate small, soft meals, then you may res ume your usual diet. Activity Light activity such as walking will help you pass the air that was put into your colon. Wi th the exception of driving and operating heavy machinery, you may resume your usual level o f activity. Complications Call your GI doctor if you have: Abnormal pain or any new unexplained symptoms. Bright red rectal bleeding Fever above 101.5 Redness, pain, or swelling at your IV site that is not relieved with warm compress. For any questions related to your procedure, call: Sunday- Sunday 8:00- 4:30 Endoscopy After business hours, or on weekends and holidays Hospital Automotive Services Manager and have the GI doctor iron launder operator paged. The provider who performed your procedure is: Dr. Lo Recommended follow up Colonoscopy 7-10 years Normal exam. in approximately 2 weeks Follow up Appointments with:PCP. Your primary care provider or referring provider will rece wilbert copies of the procedure report and all pathology reports with recommendations for treatm ent Current Medication List Name Sig ARIMIDEX 1 MG TAB take 1 tablet (1 mg) by oral route once daily ATENOLOL 25 MG TAB Take 25 mg by mouth once daily. CITRACAL + D 315 MG-200 UNIT TAB 2 tabs twice a day COUMADIN OR Take 7 mg by mouth once daily. CRESTOR 5 MG TAB Take 5 mg by mouth once daily. STOOL SOFTENER 100 MG CAP 1 pill by mouth 2 X per day DOFETILIDE 500 MCG CAP Take 1 Cap by mouth two times daily. FLONASE 50 MCG/ACTUATION NASAL SPRAY Instill 2 Sprays into each nostril once daily. FUROSEMIDE 20 MG TAB Take 1 Tab by mouth once daily. GLUCOSAMINE 1,000 MG TAB one daily BONIVA 150 MG TAB once monthly MULTIVITAMIN OR one daily POTASSIUM CHLORIDE SR 20 MEQ TAB, PARTICLES/CRYSTALS Take 1 Tab by mouth once daily. PROTONIX 40 MG TAB take 1 tablet (40mg) by oral route once daily, can take additional table t in the night if needed PULMICORT FLEXHALER 180 MCG/INHALATION BREATH ACTIVATED Inhale 1 Puff two times daily. 2 pu ffs in the am and 1 puff in the pm RESTASIS OPHT Both eyes twice daily SPIRIVA WITH HANDIHALER 18 MCG & INHALATION CAPS inhale the contents of one capsule (18mcg) by inhalation route once daily ANTIOXIDANT FORMULA CAP take 1 capsule by oral route once daily with food VITAMIN D ORAL 2000 IU daily documented in this encounter Medications at Time [...] this encounter Progress Notes Ki Lo MD (Brian) - 10/20/2008 7:55 AM PDTFormatting of this note might be dif ferent from the original. PROCEDURE NOTE: Subjective: Adriana Flynn is a 63 y.o. female MR# [id number] presents today for a screen ing examination. PARQ held and all questions addressed. Objective: Vital Signs: Height 1.676 m (5' 6"), weight 65.772 kg (145 lb). Neuro: patient is Patient oriented X3. Mental status clear and intact Mallampati Score: II Neck negative Respiratory Lungs clear to auscultation bilaterally with good air exchange Cardiac Regular Rate and Rhythm. Abdomen: soft, normal active bowel sounds, nontender, no masses, no organomegaly Medications: Meds reviewed Allergies: Allergies as of 10/01/2008 - reviewed 09/10/2008 Allergen Reaction Noted Sulfa (sulfonamides) Swelling-Facial 07/01/2004 Ciprofloxacin Hives and Rash 08/11/2004 Triamterene-hydrochlorothiazid 08/11/2004 Celebrex (celecoxib) Diarrhea and Cough 03/07/2007 Albuterol Tachycardia 03/07/2007 Flecainide acetate Rash 03/07/2007 Propafenone 03/07/2007 Tape adherent Rash 07/06/2007 See procedure note 10/20/2008 documented in this encounter Procedure Notes Other, Faculty - 10/20/2008 9:09 AM PDT Other, Faculty - 10/20/2008 9:09 AM PDT docodilon moran in this encounter Miscellaneous Notes Scan - Other, Faculty - 10/20/2008 9:09 AM PDT Scan - Other, Faculty - 10/20/2008 9:09 A M PDT documented in this encounter Plan of Treatment Not on filedocumented as of this encounter Visit Diagnoses Not on filedocumented in this encounter Administered Medications + +--------+ +--------+------+------+ | Medication Order | MAR | Action | Dose | Rate | Site | | | Action | Date | | | | + +--------+ +--------+------+------+ | fentanyl (aka SUBLIMAZE) | Given | 10/21/19 | 75 mcg | | | | injection 1 dose, Starting Tue | | 8:15 | | | | | 10/20/08 at 0801, Until Sun10/20/08 | | AM PDT | | | | | at 0824 | | | | | | + +--------+ +--------+------+------+ +---+---+ | | | +---+---+ + +-------+ +------+---+---+ | midazolam (aka VERSED) | Given | 10/21/19 | 3 mg | | | | injection 1 dose, Starting Sun | | 8:15 | | | | | 10/20/08 at 0802, Until Sun10/20/08 | | AM PDT | | | | | at 0825 | | | | | | + +-------+ +------+---+---+ +---+---+ | | | +---+---+ documented in this encounter
--- OUTSIDE RECORDS SUMMARY | ~2020-05-04 | XMS | Encounter Summary ---
Demographics + + + | Address | [address] | | | [place] [address] | + + + | Home Phone [...] + | Gene Gee | ECON | [address] | | | | | [place], | | | | | [place] [address] | | + + + + + Care Team Providers + +------+ + | Care Leather Grader Name | Role | Phone | + +------+ + | Antony Ribera MD | PCP | | + +------+ + Reason for Visit + +--------+ + | Reason | Onset | Comments | | | Date | | + +--------+ + | Lab Results | 07/27/ | | | | 2011 | | + +--------+ + Encounter Details +--------+ + + + + | Date | Type | Department | Care Team | Description | +--------+ + + + + | 07/27/ | Telephone | Surgical Oncology | SlyHenri, | Lab Results | | 2011 | | at [facility] [address] | MD [address] | | | | | [address] [facility] | [place], [place] | | | | | Health and Healing, | [address] | | | | | [address] | [phone] | | | | | [place], [place] | | | | | | [address] | | | | | | [phone] | | | +--------+ + + + [...] Telephone Encounter - Claribel Garza RN - 07/27/2011 10:05 AM PSTReviewed benign path wit h patient - tong. Keratosis. Time spent 5 minutes. documented in this encounter Plan of Treatment Not on filedocumented as of this encounter Visit Diagnoses Not on filedocumented in this encounter"
--- OUTSIDE RECORDS SUMMARY | ~2020-05-04 | XMS | Encounter Summary ---
Demographics + + + | Address | [address] | | | [place] [address] | + + + | Home Phone [...] + | Gene Gee | ECON | [address] | | | | | [place], | | | | | [place] [address] | | + + + + + Care Team Providers + +------+ + | Care Osd Clerk Name | Role | Phone | + +------+ + | Antony Ribera MD | PCP | | + +------+ + Reason for Visit + +--------+ + | Reason | Onset | Comments | | | Date | | + +--------+ + | Refill Request | 10/28/ | Luke Ritter [address] | | | 2013 | | + +--------+ + Encounter Details +--------+--------+ + + + | Date | Type | Department | Care Team | Description | +--------+--------+ + + + | 10/28/ | Refill | Pulmonary & | Charbel Avila, | Refill Request | | 2013 | | Critical Care | [facility] | (Pulmicort Flexhaler | | | | Medicine at | [facility] | [address]) | | | | Physicians [address] | [address] | | | | | [address] | [place], [place] | | | | | Loop Physician's | [address] | | | | | [address], [facility] Floor | [phone] | | | | | [place], [place] | | | | | | [address] | | | | | | [phone] | | | +--------+--------+ + + + [...] Telephone Encounter - Sharon White LPN - 10/28/2013 1:[address] from the pharmacy. Rx pended and routed to the provider for approval or denial. Last Office Visit in [facility] was on 10/22/12 at 1:00 pm with Pete Gee MD. No future appointments scheduled in Pulmonary Disease. documented in this encounter Plan of Treatment Not on filedocumented as of this encounter Visit Diagnoses Not on filedocumented in this encounter"
--- OUTSIDE RECORDS SUMMARY | ~2020-05-04 | XMS | Encounter Summary ---
Demographics + + + | Address | [address] | | | [place] [address] | + + + | Home Phone [...] + | Gene Gee | ECON | [address] | | | | | [place], | | | | | [place] [address] | | + + + + + Care Team Providers + +------+ + | Care Lower In Supervisor Name | Role | Phone | + +------+ + | Antony Ribera MD | PCP | | + +------+ + Encounter Details +--------+ + + + + | Date | Type | Department | Care Team | Description | +--------+ + + + + | 11/02/ | Documentati | Cardiology | Elijah Whalen, | | | 2017 | on | Arrhythmia at [facility] | [address] | | | | | [address] | Anthony Deisi | | | | | [facility] | [place], [place] | | | | | and Healing, | [address] | | | | | [place] [address] [facility] | [phone] | | | | | Floor [place], [place] | | | | | | [address] | | | | | | [phone] | | | +--------+ + + + [...] Telephone Encounter - Elijah Whalen MD - 11/02/2016 4:36 PM PDTI called and spoke with Ms. Flynn. She has palpitations every 2-3 days. They are 4 out of 10 on a scale of bothersom e-ness. She is on rivaroxaban 20 daily and metoprolol 75 TID. We will discuss further in cli erwin November 14. documented in this en counter Plan of Treatment Not on filedocumented as of this encounter Visit Diagnoses Not on filedocumented in this encounter"
--- OUTSIDE RECORDS SUMMARY | ~2020-05-04 | XMS | Encounter Summary ---
Demographics + + + | Address | [address] | | | [place] [address] | + + + | Home Phone [...] + | Gene Gee | ECON | [address] | | | | | [place], | | | | | [place] [address] | | + + + + + Care Team Providers + +------+ + | Care Assessment Counselor Name | Role | Phone | + +------+ + | Antony Ribera MD | PCP | | + +------+ + Encounter Details +--------+------+ + + + | Date | Type | Department | Care Team | Description | +--------+------+ + + + | 12/29/ | Lab | Laboratory at [facility] | | Osteopenia; Other | | 2008 | | [address] | | Pulmonary Embolism | | | | [facility] | | and Infarction; | | | | Pavilion, 3rd floor | | Breast Cancer (HCC) | | | | [place], [place] | | | | | | [address] | | | | | | [phone] | | | +--------+------+ + + + [...] for this | | | e | 11:07 AM | Embolism and | procedure are in the | | | | PDT | Infarction | results section. | + +--------+ + + + | LDL | Routin | 12/29/2008 | Breast Cancer | | | CHOLEST,MEASURED, | e | 11:07 AM | (HCC) | | | PLASMA | | PDT | | | + +--------+ + + + | HDL CHOLESTEROL, | Routin | 12/29/2008 | Breast Cancer | Results for this | | PLASMA | e | 11:07 AM | (HCC) | procedure are in the | | | | PDT | | results section. | + +--------+ + + + | TRIGLYCERIDES, | Routin | 12/29/2008 | Breast Cancer | Results for this | | PLASMA | e | 11:07 AM | (HCC) | procedure are in the | | | | PDT | | results section. | + +--------+ + + + | CHOLESTEROL TOTAL, | Routin | 12/29/2008 | Breast Cancer | Results for this | | PLASMA | e | 11:07 AM | (HCC) | procedure are in the | | | | PDT | | results section. | + +--------+ + + + | VITAMIN D, | Routin | 12/29/2008 | Osteopenia | Results for this | | 25-HYDROXY, SERUM | e | 9:44 AM | | procedure are in the | | | | PDT | | results section. | + +--------+ + + + | COMPLETE METABOLIC | Routin | 12/29/2008 | Osteopenia | Results for this | | SET | e | 9:44 AM | | procedure are in the | | (NA,K,CL,CO2,BUN,CRE | | PDT | | results section. | | AT,GLUC,CA,AST,ALT,B | | | | | | DANICA TOTAL,ALK | | | | | | PHOS,ALB,PROT TOTAL) | | | | | + +--------+ + + + | PHOSPHORUS, PLASMA | Routin | 12/29/2008 | Osteopenia | Results for this | | | e | 9:44 AM | | procedure are in the | | | | PDT | | results section. | + +--------+ + + + | LDL | Routin | 12/29/2008 | | Results for this | | CHOLEST,MEASURED, | e | 9:44 AM | | procedure are in the | | PLASMA | | PDT | | results section. | + +--------+ + + + | HDL CHOLESTEROL, | Routin | 12/29/2008 | | Results for this | | PLASMA | e | 9:44 AM | | procedure are in the | | | | PDT | | results section. | + +--------+ + + + | TRIGLYCERIDES, | Routin | 12/29/2008 | | Results for this | | PLASMA | e | 9:44 AM | | procedure are in the | | | | PDT | | results section. | + +--------+ + + + | CHOLESTEROL TOTAL, | Routin | 12/29/2008 | | Results for this | | PLASMA | e | 9:44 AM | | procedure are in the [...] + + + + + | [facility] | [address] | [place] [address] | | | PATHOLOGY | [address] | | | + + + + + | [facility] | [address] | [place] [address] | | | PATHOLOGY | [address] [...] + | [facility] DEPARTMENT OF | [address] | [place] [address] | | | PATHOLOGY | [address] | | | + + + + + | [facility] | [address] | [place] [address] | | | PATHOLOGY | [address] | | | + + + + + CHOLESTEROL TOTAL, PLASMA (12/29/2008 11:07 AM PDT) + + + + + + | Component | Value | Ref Range | Performed | Pathologist | | | | | At | Signature | + + + + + + | CHOLESTEROL | Combined. | <200 mg/dL | [facility] | | | (LAB) | | | [...] | + + + + + | [facility] DEPARTMENT OF | [address] | [place] [address] | | | PATHOLOGY | [address] | | | + + + + + | [facility] DEPARTMENT OF | [address] | [place] [address] | | | PATHOLOGY | [address] [...] + + + + + | [facility] | [address] | [place] [address] | | | PATHOLOGY | [address] | | | + + + + + | [facility] | [address] [place] [address] | [place] [address] | | | PATHOLOGY | [address] | | | + + + + + TRIGLYCERIDES, PLASMA (12/29/2008 9:44 AM PDT) + + + + + + | Component | Value | Ref Range | Performed | Pathologist | | | | | At | Signature | + + + + + + | TRIGLYCERID | 70Comment: | <150 mg/dL | [facility] | | | ES | Triglyceride Reference | | DEPARTMENT | | | | Range: | | OF | | | | Normal: <150 | | PATHOLOGY | | | | Borderline | | | | | | High: 150 - 199 | | | | | | | | | | | | High: 200 - 499 | | | | | | | | | | | | Very High: >=500 | | | | + + + + + + + + | Specimen | + + | | + + + + + | Narrative | Performed At | + + + | [id number] Estimated GFR > 60 mL/min/1.73 sq m if non- | [facility] | | [place] [id number] Estimated GFR > 60 mL/min/1.73 sq m if | DEPARTMENT | | [place] GFR is estimated using the MDRD equation [...] | + + + + + | [facility] DEPARTMENT | [address] | [place] [address] | | | PATHOLOGY | [address] | | | + + + + + | [facility] | [address] | [place] [address] | | | PATHOLOGY | [address] | | | + + + + + LDL CHOLEST,MEASURED, PLASMA (12/29/2008 9:44 AM PDT) + + | Specimen | + + | | + + + + + | Narrative | Performed At | + + + | [id number] Estimated GFR > 60 mL/min/1.73 sq m if non- | [facility] | | [place] [id number] Estimated GFR > 60 mL/min/1.73 sq m if | DEPARTMENT OF | | [place] GFR is estimated using the MDRD equation [...] + + + + + | [facility] | [address] | [place] [address] | | | PATHOLOGY | [address] | | | + + + + + | [facility] DEPARTMENT | [address] | [place] [address] | | | PATHOLOGY | [address] | | | + + + + + HDL CHOLESTEROL, PLASMA (12/29/2008 9:44 AM PDT) + + + + + + | Component | Value | Ref Range | Performed | Pathologist | | | | | At | Signature | + + + + + + | HDL | 52Comment: HDL | >40 mg/dL | [facility] | | | CHOLESTEROL | Reference Range: | | DEPARTMENT | | | | High | | OF | | | | Risk: <40 | | PATHOLOGY | | | | Desirable: | | | | | | >=60 | | | | + + + + + + + + | Specimen | + + | | + + + + + | Narrative | Performed At | + + + | [id number] Estimated GFR > 60 mL/min/1.73 sq m if non- | [facility] | | [place] [id number] Estimated GFR > 60 mL/min/1.73 sq m if | DEPARTMENT OF | | [place] GFR is estimated using the MDRD equation [...] | + + + + + | [facility] DEPARTMENT OF | [address] | [place] [address] | | | PATHOLOGY | [address] | | | + + + + + | [facility] | [address] | [place] [address] | | | PATHOLOGY | [address] | | | + + + + + CHOLESTEROL TOTAL, PLASMA (12/29/2008 9:44 AM PDT) + + + + + + | Component | Value | Ref Range | Performed | Pathologist | | | | | At | Signature | + + + + + + | CHOLESTEROL | 196Comment: | <200 mg/dL | [facility] | | | (LAB) | Cholesterol Reference | | DEPARTMENT | | | | Range: | | OF | | | | Desirable: <200 | | PATHOLOGY | | | | Borderline | | | | | | High: 200 - 239 | | | | | | | | | | | | High: >=240 | | | | | | LDL Cholesterol | | | | | | Reference Range: | | | | | | | | | | | | Optimal: <100 | | | | | | Near Optimal: | | | | | | 100 - 129 | | | | | | Borderline High: | | | | | | 130 - 159 | | | | | | High: | | | | | | 160 - 189 | | | | | | Very High: | | | | | | >=190 | | | | + + + + + + | LDL | 130 (H) | <100 mg/dL | [facility] | | | CHOLESTEROL | | | DEPARTMENT | | | , | | | OF | | | CALCULATED | | | PATHOLOGY | | + + + + + + | VLDL | 14 | <31 mg/dL | [facility] | | | CHOLESTEROL | | | DEPARTMENT | | | , | | | OF | | | CALCULATED | | | PATHOLOGY | | + + + + + + | NON-HDL | 144 (H)Comment: non-HDL | <130 mg/dL | [facility] | | | CHOLESTEROL | Cholesterol Reference | | DEPARTMENT | | | | Range: | | OF | | | | Optimal: <130 | | PATHOLOGY | | | | Near | | | | | | Optimal: 130-159 | | | | | | Borderline | | | | | | High: 160-189 | | | | | | | | | | | | High: 190-209 | | | | | | Very | | | | | | High: >=210 | | | | + + + + + + + + | Specimen | + + | | + + + + + | Narrative | Performed At | + + + | [id number] Estimated GFR > 60 mL/min/1.73 sq m if non- | [facility] | | [place] [id number] Estimated GFR > 60 mL/min/1.73 sq m if | DEPARTMENT OF | | [place] GFR is estimated using the MDRD equation [...] + + + + + | [facility] | [address] [place] [address] | [place] [address] | | | PATHOLOGY | [address] | | | + + + + + | [facility] | [address] [place] [address] | [place] [address] | | | PATHOLOGY | [address] | | | + + + + + VITAMIN D, 25-HYDROXY, SERUM (12/29/2008 9:44 AM [...] [facility] | | | | | | [facility] | | | | | | [address], [place] [address] | | | | | | [phone] | | | | | Mathew [...] + + + + | [facility] | [address] | [place] [address] | | | PATHOLOGY | [address] [...] Performed At | + + + | [id number] Estimated GFR > 60 mL/min/1.73 sq m if non- | [facility] | | [place] [id number] Estimated GFR > 60 mL/min/1.73 sq m if | DEPARTMENT OF | | [place] GFR is estimated using the MDRD equation [...] + + + + + | [facility] | [address] | [place] [address] | | | PATHOLOGY | [address] | | | + + + + + | [facility] | [address] | [place] [address] | | | PATHOLOGY | [address] [...] Performed At | + + + | [id number] Estimated GFR > 60 mL/min/1.73 sq m if non- | [facility] | | [place] [id number] Estimated GFR > 60 mL/min/1.73 sq m if | DEPARTMENT OF | | [place] GFR is estimated using the MDRD equation [...] | + + + + + | [facility] DEPARTMENT | [address] | [place] [address] | | | PATHOLOGY | [address] | | | + + + + + | [facility] | [address] | [place] [address] | | | PATHOLOGY | [address] | | | + + + + + documented in this encounter Visit Diagnoses + + | Diagnosis | + + | Osteopenia Disorder of bone and cartilage, unspecified | + + | Other pulmonary embolism and infarction | + + | Breast cancer (HCC) Malignant neoplasm of breast (female), unspecified site | + + documented in this encounter"
--- OUTSIDE RECORDS SUMMARY | ~2020-05-04 | XMS | Encounter Summary ---
Demographics + + + | Address | [address] | | | [place] [address] | + + + | Home Phone [...] + | Gene Gee | ECON | [address] | | | | | [place], | | | | | [place] [address] | | + + + + + Care Team Providers + +------+ + | Care Pierce And Shave Press Operator Name | Role | Phone | + +------+ + | Antony Ribera MD | PCP | | + +------+ + Encounter Details +--------+------+ + + + | Date | Type | Department | Care Team | Description | +--------+------+ + + + | 08/14/ | Lab | Laboratory at [facility] | | Dyspnea; Liver Cyst; | | 2008 | | [address] | | Disorder of Bone | | | | Loop [facility]'s | | and Cartilage, | | | | Pavilion, 3rd floor | | Unspecified | | | | [place], [place] | | | | | | [address] | | | | | | [phone] | | | +--------+------+ + + + [...] + documented as of this encounter Progress Jasmina Jackson - 08/14/2008 8:23 AM PST Addended by: JASMINA REYNOSO on: 08/14/2008 8:23:1 3 AM Modules accepted: Orders documented in this enco unter Plan of Treatment Not on filedocumented as of this encounter Procedures + +--------+ + + + | Procedure Name | Priori | Date/Time | Associated Diagnosis | Comments | | | ty | | | | + +--------+ + + + | DIFFERENTIAL | Routin | 08/14/2008 | | Results for this | | | e | 11:11 AM | | procedure are in the | | | | PST | | results section. | + +--------+ + + + | INR | Routin | 08/14/2008 | Dyspnea Liver | Results for this | | | e | 11:11 AM | Cyst Disorder of | procedure are in the | | | | PST | Bone and Cartilage, | results section. | | | | | Unspecified | | + +--------+ + + + | CBC, WITH | Routin | 08/14/2008 | Dyspnea Liver | Results for this | | DIFFERENTIAL | e | 11:11 AM | Cyst Disorder of | procedure are in the | | | | PST | Bone and Cartilage, | results section. | | | | | Unspecified | | + +--------+ + + + | B-NATRIURETIC | Routin | 08/14/2008 | Dyspnea Liver | Results for this | | PEPTIDE, BLOOD | e | 11:11 AM | Cyst Disorder of | procedure are in the | | | | PST | Bone and Cartilage, | results section. | | | | | Unspecified | | + +--------+ + + + | COMPLETE METABOLIC | Routin | 08/14/2008 | Dyspnea Liver | Results for this | | SET | e | 11:11 AM | Cyst Disorder of | procedure are in the | | (NA,K,CL,CO2,BUN,CRE | | PST | Bone and Cartilage, | results section. | | AT,GLUC,CA,AST,ALT,B | | | Unspecified | | | DANICA TOTAL,ALK | | | | | | PHOS,ALB,PROT TOTAL) | | | | | + +--------+ + + + | D-DIMER, (PE OR DIC) | Routin | 08/14/2008 | Dyspnea Liver | Results for this | | | e | 11:11 AM | Cyst Disorder of | procedure are in the | | | | PST | Bone and Cartilage, | results section. | | | | | Unspecified | | + +--------+ + + + | PTH, SERUM | Routin | 08/14/2008 | Dyspnea Liver | Results for this | | | e | 11:11 AM | Cyst Disorder of | procedure are in the | | | | PST | Bone and Cartilage, | results section. | | | | | Unspecified | | + +--------+ + + + | TSH | Routin | 08/14/2008 | Dyspnea Liver | Results for this | | | e | 11:11 AM | Cyst Disorder of | procedure are in the | | | | PST | Bone and Cartilage, | results section. | | | | | Unspecified | | + +--------+ + + + | LIPID SET (TRIG, T | Routin | 08/14/2008 | Dyspnea Liver | Results for this | | CHOL, HDL, CALC LDL) | e | 11:11 AM | Cyst Disorder of | procedure are in the | | | | PST | Bone and Cartilage, | results section. | | | | | Unspecified | | + +--------+ + + + | DIFFERENTIAL | Routin | 08/14/2008 | | Results for this | | | e | 7:50 AM | | procedure are in the | | | | PST | | results section. | + +--------+ + + + | INR | Routin | 08/14/2008 | Liver Cyst | Results for this | | | e | 7:50 AM | | procedure are in the | | | | PST | | results section. | + +--------+ + + + | CBC, WITH | Routin | 08/14/2008 | Dyspnea | Results for this | | DIFFERENTIAL | e | 7:50 AM | | procedure are in the | | | | PST | | results section. | + +--------+ + + + | B-NATRIURETIC | Routin | 08/14/2008 | Dyspnea | Results for this | | PEPTIDE, BLOOD | e | 7:50 AM | | procedure are in the | | | | PST | | results section. | + +--------+ + + + | COMPLETE METABOLIC | Routin | 08/14/2008 | Dyspnea | Results for this | | SET | e | 7:50 AM | | procedure are in the | | (NA,K,CL,CO2,BUN,CRE | | PST | | results section. | | AT,GLUC,CA,AST,ALT,B | | | | | | DANICA TOTAL,ALK | | | | | | PHOS,ALB,PROT TOTAL) | | | | | + +--------+ + + + | D-DIMER, (PE OR DIC) | Routin | 08/14/2008 | Dyspnea | Results for this | | | e | 7:50 AM | | procedure are in the | | | | PST | | results section. | + +--------+ + + + | PTH, SERUM | Routin | 08/14/2008 | Disorder of Bone | Results for this | | | e | 7:50 AM | and Cartilage, | procedure are in the | | | | PST | Unspecified | results section. | + +--------+ + + + | TSH | Routin | 08/14/2008 | Dyspnea | Results for this | | | e | 7:50 AM | | procedure are in the | | | | PST | | results section. | + +--------+ + + + | LIPID SET (TRIG, T | Routin | 08/14/2008 | Dyspnea | Results for this | | CHOL, HDL, CALC LDL) | e | 7:50 AM | | procedure are in the | | | | PST | | results section. | + +--------+ + + + documented in this encounter Results DIFFERENTIAL (08/14/2008 11:11 AM PST) + +-------+ + + + | Component | Value | Ref Range | Performed | Pathologist | | | | | At | Signature | + +-------+ + + + | NEUTROPHIL | 60 | 50 - 70 % | [facility] [...] +-------+ + + + | NEUTROPHIL | 3.9 | 1.8 - 7.7 K/cu | [facility] | | | # | | mm | DEPARTMENT | | | | | | OF | | | | | | PATHOLOGY | | + +-------+ + + + | LYMPHOCYTE | 2.0 | 1.0 - 4.8 K/cu | [facility] | | | # | | mm | DEPARTMENT | | | | | | OF | | | | | | PATHOLOGY | | + +-------+ + + + | MONOCYTE # | 0.5 | <0.9 K/cu mm | [facility] | [...] | + + + + + | [facility] | [address] [facility] | [place] [address] | | | PATHOLOGY | [address] | | | + + + + + | [facility] | [address] [facility] | [place] [address] | | | PATHOLOGY | [address] | | | + + + + + INR (08/14/2008 11:11 AM PST) + + + + + + | Component | Value | Ref Range | Performed | Pathologist | | | | | At | Signature | + + + + + + | INR | 1.14Comment: | 0.90 - 1.20 INR | [facility] | | | | INR Therapeutic ranges [...] | + + + + + | [facility] DEPARTMENT OF | [address] | [place] [address] | | | PATHOLOGY | [address] | | | + + + + + | [facility] | [address] | [place] [address] | | | PATHOLOGY | [address] | | | + + + + + PTH, SERUM (08/14/2008 11:11 AM PST) + + + + + + | Component | Value | Ref Range | Performed | Pathologist | | | | | At | Signature | + + + + + + | PTH, SERUM | 36.0Comment: Test | 15.0 - 75.0 | | | | | performed by [facility] | pg/mL | | | | | [facility]. | | | | + + + + + + + + | Specimen | + + | Blood - Blood | + + + + + | Narrative | Performed At | + + + | [facility] ([address] [facility]) | | | [facility] [address] | | | [place] [address] | | + + + + + + + + | Performing | Address | City/State/Zipcode | Phone Number | | Organization | | | | + + + + + | [facility] | [address] | [place] [address] | | | LABORATORY | | | | + + + + + LIPID SET (TRIG, T CHOL, HDL, CALC LDL) (08/14/2008 11:11 AM PST) + + + + + + | Component | Value | Ref Range | Performed | Pathologist | | | | | At | Signature | + + + + + + | CHOLESTEROL | 219 (H)Comment: | <200 mg/dL | [facility] | | [...] + + + + | TRIGLYCERID | 83Comment: | <150 mg/dL | [facility] | | [...] + + + + | HDL | 41Comment: HDL | >40 mg/dL | [facility] | | | CHOLESTEROL | Reference Range: | | DEPARTMENT | | | | High | | OF | | | | Risk: <40 | | PATHOLOGY | | | | Desirable: | | | | | | >=60 | | | | + + + + + + | LDL | 161 (H) | <100 mg/dL | [facility] | | | CHOLESTEROL | | | DEPARTMENT | | | , | | | OF | | | CALCULATED | | | PATHOLOGY | | + + + + + + | VLDL | 17 | <31 mg/dL | [facility] | | | CHOLESTEROL | | | DEPARTMENT | | | , | | | OF | | | CALCULATED | | | PATHOLOGY | | + + + + + + | NON-HDL | 178 (H)Comment: non-HDL | <130 mg/dL | [facility] [...] Performed At | + + + | [id number] Estimated GFR > 60 mL/min/1.73 sq m if non- | [facility] | | [place] [id number] Estimated GFR > 60 mL/min/1.73 sq m if | DEPARTMENT OF | | [place] GFR is estimated using the MDRD equation [...] | + + + + + | [facility] DEPARTMENT | [address] | [place] [address] | | | PATHOLOGY | [address] | | | + + + + + | [facility] | [address] | [place] [address] | | | PATHOLOGY | [address] | | | + + + + + TSH (08/14/2008 11:11 AM PST) + +-------+ + + + | Component | Value | Ref Range | Performed | Pathologist | | | | | At | Signature | + +-------+ + + + | TSH | 1.30 | 0.34 - 5.60 | | | | | | uIU/ml | | | + +-------+ + + + + + | Specimen | + + | Blood - Blood | + + + + + | Narrative | Performed At | + + + | Reference range change effective | | | 05/06/07 [facility] ([address] [facility]) | | | [facility] [place] [address] | | | [place] [address] | | + + + + + + + + | Performing | Address | City/State/Zipcode | Phone Number | | Organization | | | | + + + + + | [facility] | [address] | [place] [address] | | | LABORATORY | | | | + + + + + B-NATRIURETIC PEPTIDE, BLOOD (08/14/2008 11:11 AM PST) + + + + + + | Component | Value | Ref Range | Performed | Pathologist | | | | | At | Signature | + + + + + + | B | 200 (H)Comment: | <101 pg/mL | [facility] | | | NATRIURETIC | BNP pg/mL | | DEPARTMENT | | | PEPTIDE | Interpretation | | OF | | | | --------- | | PATHOLOGY | | | | | | | | | | <ho=171....... Negative: | | | | | | CHF unlikely | | | | | | 101-200....... | | | | | | Suggestive for CHF. Also | | | | | | suggestive for | | | | | | Corpulmonale | | | | | | or | | | | | | pulmonary embolus. | | | | | | >200.......... | | | | | | Consistent with CHF. | | | | | | >oq=152....... Highly | | | | | | consistent with CHF. | | | | | | Patients with BNP>yd=689 | | | | | | | | | | | | pg/mL have a | | | | | | 30-fold increased risk | | | | | | of anadverse | | | | | | | | | | | | cardiac event within | | | | | | the next 6 months. | | | | + + + + + + + + | Specimen | + + | Blood - Blood | + + + + + + + | Performing | Address | City/State/Zipcode | Phone Number | | Organization | | | | + + + + + | [facility] | [address] | [place] [address] | | | PATHOLOGY | [address] | | | + + + + + | [facility] | [address] | [place] [address] | | | PATHOLOGY | [address] | | | + + + + + D-DIMER, (PE OR DIC) (08/14/2008 11:11 AM PST) + + + + + + | Component | Value | Ref Range | Performed | Pathologist | | | | | At | Signature | + + + + + + | D-DIMER (PE | 2.64 (H)Comment: | <0.50 ug/mLFEU | [facility] | | | OR DIC) | D-Dimer | | DEPARTMENT | | | | Interpretation: | | OF | | | | <0.50 PE very | | PATHOLOGY | | | | unlikely | | | | | | 0.50-4.0 Seen in ill | | | | | | patients but not | | | | | | diagnostic ofthrombosis. | | | | | | >4.0 | | | | | | Compatible with DIC | | | | | | but not diagnostic. | | | | | | Ifclinically | | | | | | indicated | | | | | | request titration of | | | | | | d-dimer. Values>8.0 | | | | | | | | | | | | are strongly suggestive | | | | | | of DIC. | | | | + + + + + + + + | Specimen | + + | | + + + + + + + | Performing | Address | City/State/Zipcode | Phone Number | | Organization | | | | + + + + + | [facility] | [address] [facility] | [place] [address] | | | PATHOLOGY | [address] | | | + + + + + | [facility] | [address] [facility] | [place] [address] | | | PATHOLOGY | [address] | | | + + + + + COMPLETE METABOLIC SET (NA,K,CL,CO2,BUN,CREAT,GLUC,CA,AST,ALT,BILI TOTAL,ALK PHOS,ALB,PROT TOTAL) (08/14/2008 11:11 AM PST) + +-------+ + + + | Component | Value | Ref Range | Performed | Pathologist | | | | | At | Signature | + +-------+ + + + | GLUCOSE, | 84 | 60 - 99 mg/dL | [facility] [...] + + | CREATININE | 0.78 | 0.60 - 1.10 | [facility] | | | PLASMA | | mg/dL | DEPARTMENT | | | (LAB) | | | OF | | | | | | PATHOLOGY | | + +-------+ + + + | TOTAL | 6.8 | 6.1 - 7.9 g/dL | [facility] | | | PROTEIN, | | | DEPARTMENT | | | PLASMA | | | OF | | | (LAB) | | | PATHOLOGY | | + +-------+ + + + | ALBUMIN, | 3.5 | 3.5 - 4.7 g/dL | [facility] | | | PLASMA | | | DEPARTMENT | | | (LAB) | | | OF | | | | | | PATHOLOGY | | + +-------+ + + + | CALCIUM, | 9.8 | 8.6 - 10.2 | [facility] | | | PLASMA | | mg/dL | DEPARTMENT | | | (LAB) | | | OF | | | | | | PATHOLOGY | | + +-------+ + + + | BILIRUBIN | 1.1 [...] +-------+ + + + | AST(SGOT) | 25 | 15 - 41 U/L | [facility] | | | | | | DEPARTMENT | | | | | | OF | | | | | | PATHOLOGY | | + +-------+ + + + | SODIUM, | 142 | 134 - 143 | [facility] | | | PLASMA | | mmol/L | DEPARTMENT | | | (LAB) | | | OF | | | | | | PATHOLOGY | | + +-------+ + + + | POTASSIUM, | 4.5 | 3.4 - 5.0 | [facility] | | | PLASMA | | mmol/L | DEPARTMENT | | | (LAB) | | | OF | | | | | | PATHOLOGY | | + +-------+ + + + | CHLORIDE, | 107 | 97 - 108 mmol/L | [facility] | | | PLASMA | | | DEPARTMENT | | | (LAB) | | | OF | | | | | | PATHOLOGY | | + +-------+ + + + | TOTAL CO2, | 25 | 23 - 31 mmol/L | [facility] [...] Performed At | + + + | [id number] Estimated GFR > 60 mL/min/1.73 sq m if non- | [facility] | | [place] [id number] Estimated GFR > 60 mL/min/1.73 sq m if | DEPARTMENT OF | | [place] GFR is estimated using the MDRD equation [...] | + + + + + | [facility] | [address] | [place] [address] | | | PATHOLOGY | [address] | | | + + + + + | [facility] DEPARTMENT OF | [address] | [place] [address] | | | PATHOLOGY | [address] | | | + + + + + CBC, WITH DIFFERENTIAL (08/14/2008 11:11 AM PST) + +-------+ + + + | Component | Value | Ref Range | Performed | Pathologist | | | | | At | Signature | + +-------+ + + + | WHITE CELL | 6.5 | 4.4 - 11.0 K/cu | [facility] | | | COUNT | | mm | DEPARTMENT | | | | | | OF | | | | | | PATHOLOGY | | + +-------+ + + + | RED CELL | 4.68 | 4.00 - 5.20 | [facility] | | | COUNT | | M/cu mm | DEPARTMENT | | | | | | OF | | | | | | PATHOLOGY | | + +-------+ + + + | HEMOGLOBIN | 13.6 | 12.0 - 16.0 | [facility] | | | | | g/dL | DEPARTMENT | | | | | | OF | | | | | | PATHOLOGY | | + +-------+ + + + | HEMATOCRIT | 39.5 | 36.0 - 46.0 % | [facility] | | | | | | DEPARTMENT | | | | | | OF | | | | | | PATHOLOGY | | + +-------+ + + + | MCV | 84.5 | 80.0 - 96.0 fL | [facility] | | | | | | DEPARTMENT | | | | | | OF | | | | | | PATHOLOGY | | + +-------+ + + + | MCHC | 34.5 | 33.4 - 35.5 | [facility] | | | | | g/dL | DEPARTMENT | | | | | | OF | | | | | | PATHOLOGY | | + +-------+ + + + | RDW | 14.8 | 11.5 - 15.0 % | [facility] [...] | + + + + + | [facility] DEPARTMENT OF | [address] | [place] [address] | | | PATHOLOGY | [address] | | | + + + + + | [facility] DEPARTMENT | [address] | [place] [address] | | | PATHOLOGY | [address] | | | + + + + + DIFFERENTIAL (08/14/2008 7:50 AM PST) + + + + + + | Component | Value | Ref Range | Performed | Pathologist | | | | | At | Signature | + + + + + + | NEUTROPHIL | See cmnt | 50 - 70 % | [facility] | | | % | | | DEPARTMENT | | | | | | OF | | | | | | PATHOLOGY | | + + + + + + | LYMPHOCYTE | See cmnt | 18 - 42 % | [facility] | | | % | | | DEPARTMENT | | | | | | OF | | | | | | PATHOLOGY | | + + + + + + | MONOCYTE % | See cmnt | 2 - 8 % | [facility] | | | | | | DEPARTMENT | | | | | | OF | | | | | | PATHOLOGY | | + + + + + + | EOS % | See cmnt | 1 - 3 % | [facility] | | | | | | DEPARTMENT | | | | | | OF | | | | | | PATHOLOGY | | + + + + + + | BASO % | See cmnt | <3 % | [facility] | | [...] DEPARTMENT OF | [address] | [place] [address] | | | PATHOLOGY | [address] | | | + + + + + | [facility] DEPARTMENT OF | [address] | [place] [address] | | | PATHOLOGY | [address] | | | + + + + + PTH, SERUM (08/14/2008 7:50 AM PST) + [...] | + + + + + | [facility] | [address] | [place] [address] | | | LABORATORY | | | | + + + + + INR (08/14/2008 7:50 AM PST) + + [...] DEPARTMENT OF | [address] | [place] [address] | | | PATHOLOGY | [address] | | | + + + + + | [facility] DEPARTMENT OF | [address] | [place] [address] | | | PATHOLOGY | [address] | | | + + + + + LIPID SET (TRIG, T CHOL, HDL, CALC LDL) (08/14/2008 7:50 AM PST) + + + + + + | Component | Value | Ref Range | Performed | Pathologist | | | | | At | Signature | + + + + + + | CHOLESTEROL | See cmnt | <200 mg/dL | [facility] | | | (LAB) | | | DEPARTMENT | | | | | | OF | | | | | | PATHOLOGY | | + + + + + + | TRIGLYCERID | See cmnt | <150 mg/dL | [facility] | | | ES | | | DEPARTMENT | | | | | | OF | | | | | | PATHOLOGY | | + + + + + + | HDL | See cmnt | >40 mg/dL | [facility] | | | CHOLESTEROL | | | DEPARTMENT | | | | | | OF | | | | | | PATHOLOGY | | + + + + + + | HDL CMNT | See cmnt | | [facility] [...] | + + + + + | [facility] | [address] | [place] [address] | | | PATHOLOGY | [address] | | | + + + + + | [facility] | [address] | [place] [address] | | | PATHOLOGY | [address] | | | + + + + + TSH (08/14/2008 7:50 AM PST) + + + + + + | Component | Value | Ref Range | Performed | Pathologist | | | | | At | Signature | + + + + + + | TSH | See cmnt | uIU/ml | | | + + + + [...] | + + + + + | [facility] | [address] | [place] [address] | | | LABORATORY | | | | + + + + + B-NATRIURETIC PEPTIDE, BLOOD (08/14/2008 7:50 AM PST) + + + + + + | Component | Value | Ref Range | Performed | Pathologist | | | | | At | Signature | + + + + + + | B | See cmnt | pg/mL | [facility] | | | NATRIURETIC | | | DEPARTMENT | | | PEPTIDE | | | OF | | | [...] | + + + + + | [facility] DEPARTMENT OF | [facility] | [place] [address] | | | PATHOLOGY | [address] | | | + + + + + | [facility] DEPARTMENT OF | [address] [facility] | [place] [address] | | | PATHOLOGY | [address] | | | + + + + + D-DIMER, (PE OR DIC) (08/14/2008 7:50 AM PST) + + + + + + | Component | Value | Ref Range | Performed | Pathologist | | | | | At | Signature | + + + + + + | D-DIMER (PE | See cmnt | ug/mLFEU | [facility] | | | OR DIC) | | | DEPARTMENT | | | [...] | + + + + + | [facility] DEPARTMENT OF | [address] [facility] | [place] [address] | | | PATHOLOGY | [address] | | | + + + + + | [facility] DEPARTMENT OF | [address] [facility] | [place] [address] | | | PATHOLOGY | [address] | | | + + + + + COMPLETE METABOLIC SET (NA,K,CL,CO2,BUN,CREAT,GLUC,CA,AST,ALT,BILI TOTAL,ALK PHOS,ALB,PROT TOTAL) (08/14/2008 7:50 AM PST) + + + [...] | + + + + + | [facility] | [address] [facility] | [place] [address] | | | PATHOLOGY | [address] | | | + + + + + | [facility] | [address] [facility] | [place] [address] | | | PATHOLOGY | [address] | | | + + + + + CBC, WITH DIFFERENTIAL (08/14/2008 7:50 AM PST) + + + [...] | + + + + + | [facility] DEPARTMENT OF | [facility] | [place] [address] | | | PATHOLOGY | [address] | | | + + + + + | [facility] DEPARTMENT OF | [address] [facility] | [place] [address] | | | PATHOLOGY | [address] | | | + + + + + documented in this encounter Visit Diagnoses + + | Diagnosis | + + | Dyspnea Other dyspnea and respiratory abnormality | + + | Liver cyst Other specified disorders of liver | + + | Disorder of bone and cartilage, unspecified | + + documented in this encounter"
--- OUTSIDE RECORDS SUMMARY | ~2020-05-04 | XMS | Encounter Summary ---
Demographics + + + | Address | [address] | | | [place] [address] | + + + | Home Phone [...] + | Gene Gee | ECON | [address] | | | | | [place], | | | | | [place] [address] | | + + + + + Care Team Providers + +------+ + | Care [facility] Laboratory Chief Name | Role | Phone | + +------+ + | Antony Ribera MD | PCP | | + +------+ + Encounter Details +--------+ + + + + | Date | Type | Department | Care Team | Description | +--------+ + + + + | 10/22/ | MyChart | Pulmonary & | Sergio Smith | one year checkup | | 2009 | Encounter | Critical Care | MD Dianna | | | | | Medicine at | | | | | | [facility] | | | | | | [address] | | | | | | [address] [facility] | | | | | | [facility] Floor | | | | | | [place], [place] | | | | | | [address] | | | | | | [phone] | | | +--------+ + + + [...] | + + +--------+ + + | SPIROMETRY, PULM | Pulmonary | Routin | Dyspnea | Ordered: 10/22/2009 | | FUNCTION LAB | Function | e | | | + + +--------+ + + documented as of this encounter Visit Diagnoses + + | Diagnosis | + + | Dyspnea - Primary Other dyspnea and respiratory abnormality | + + documented in this encounter"
--- OUTSIDE RECORDS SUMMARY | ~2020-05-04 | XMS | Encounter Summary ---
Demographics + + + | Address | [address] | | | [place] [address] | + + + | Home Phone [...] + | Gene Gee | ECON | [address] | | | | | [place], | | | | | [place] [address] | | + + + + + Care Team Providers + +------+ + | Care General Helper Name | Role | Phone | [...] Closed | | Pulmonary | Diagnoses | Kane, | Debozanne marie | | | | Disease | Dyspnea | Monique Quintana NP | Hypertension | | | | | Procedures | [address] | | | | | CONSULT TO | [address]es | [address] | | | | | PULMONARY | [place], [place] | Mailcode: | | | | | | [phone] | [id number] | | | | | | | Physician's | | | | | | | [address] | | | | | | | [facility] [place] | | | | | | | [address] | | | | | | | Phone: | | | | | | | [phone] | | | | | | | Fax: | | | | | | | [phone] | +--------+--------+ + + + + Encounter Details +--------+ + + + + | Date | Type | Department | Care Team | Description | +--------+ + + + + | 08/17/ | [employer] | Cardiology General | Monique Middleton, | Dyspnea (Primary Dx) | | 2008 | | at [facility] [address] | [address] | | | | | [facility] | | | | | | [facility] and Healing, | | | | | | Building | | | | | | Floor [facility] [place] | | | | | | [address] | | | | | | [phone] | | | +--------+ + + + [...]
--- OUTSIDE RECORDS SUMMARY | ~2020-05-04 | XMS | Encounter Summary ---
Demographics + + + | Address | [address] | | | [place] [address] | + + + | Home Phone [...] + | Gene Gee | ECON | [address] | | | | | [place], | | | | | [place] [address] | | + + + + + Care Team Providers + +------+ + | Care Coagulant Dipper Name | Role | Phone | + +------+ + | Antony Ribera MD | PCP | | + +------+ + Encounter Details +--------+ + + + + | Date | Type | Department | Care Team | Description | +--------+ + + + + | 07/05/ | Office | [facility] | Nurse2, Hem [address] | Written Orders | | 2006 | Visit-ECX | Clinics at S | [address] | | | | | [address] | [place] [address] | | | | | [facility] | Chr9, Hem [address] | | | | | Health and Healing, | [address] [place], | | | | | [address] | [place] [address] | | | | | [place], [place] | | | | | | [address] | | | | | | [phone] | | | +--------+ + + + [...] + + + | Blood Pressure | 125/67 | 07/05/2007 9:06 AM | | | | | PST | | + + + + + | Pulse | 93 | 07/05/2007 9:06 AM | | | | | PST | | + + + + + | Temperature | 36.3 C (97.4 F) | 07/05/2007 9:06 AM | | | | | PST [...] + + + + | Weight | 68.6 kg (151 lb 3.8 | 07/05/2007 9:06 AM | | | | oz) | PST | | + + + + + | Height | - | - | | + + + + + | Body Mass Index | 24.78 | 05/02/2007 2:06 PM | | | | | PDT | | + + + + + documented in this encounter Miscellaneous Notes Larisa - Gisele Strong - 07/05/2007 8:21 AM PSTAssociated Order(s): ORDERS LOREN solis signed by Gisele Other at 07/05/2007 12:00 AM PSTdocumented in this encounter Plan of Treatment Not on filedocumented as of this encounter Procedures + +--------+ + + + | Procedure Name | Priori | Date/Time | Associated Diagnosis | Comments | | | ty | | | | + +--------+ + + + | ORDERS OTHER | | 07/05/2007 | | Results for this | | | | 8:21 AM | | procedure are in the | | | | PST | | results section. | + +--------+ + + + documented in this encounter Results ORDERS OTHER (07/05/2007 8:21 AM PST) + + + | Narrative | Performed At | + + + | | | + + + + + | Procedure Note | + + | Gisele Strong - 07/05/2007 8:21 AM PST | + + documented in this encounter Visit Diagnoses Not on filedocumented in this encounter"
--- OUTSIDE RECORDS SUMMARY | ~2020-05-04 | XMS | Encounter Summary ---
Demographics + + + | Address | [address] | | | [place] [address] | + + + | Home Phone [...] + | Gene Sahil | ECON | [address] | | | | | [place], | | | | | [place] [address] | | + + + + + Care Team Providers + +------+ + | Care Sunday [employer] Missionary Name | Role | Phone | + +------+ + | Antony Ribera MD | PCP | | + +------+ + Encounter Details +--------+ + + + + | Date | Type | Department | Care Team | Description | +--------+ + + + + | 05/02/ | Office | UNKNOWN DEPARTMENT | Report, Outpatient | Progress Note | | 2006 | Visit-Trans | [address] | Consultation | | | | purvi | [address] | | | | | | [place], [place] | | | | | | [address] | | | +--------+ + + + [...] as of this encounter Progress Notes Interface, Neck Band Setter In - 07/08/2007 3:19 AM PST [id number] SAHIL Holman [id number] bruna Referred From and Faxed To: Henri Heart M.D. Referred To: Tricia Velazquez M.D., Ph.D. Consulting Physician: Tricia Velazquez M.D., Ph.D. Consultation Date: 05/02/2007 Referring Physician: Henri Heart M.D. Clinic: Medical Oncology Reason For Referral: Discussion of adjuvant treatment of breast cancer. Identification Data: Adriana is a pleasant 61-year-old female who is status post right-sided mastectomy, sentinel node mapping, and completion axillary lymph node dissection for a T1c N0 (isolated tumor cells), grade 1 infiltrating ductal carcinoma. Tumor was estrogen-receptor positive, progesterone-receptor positive, and HER-2 of 2+. Fluorescence in situ hybridization found tumor was negative for HER-2/mayela gene amplification with a ratio of 1.12. Adriana has a number of comorbid conditions such as Sjogren's syndrome, multiple abdominal surgeries for colon resections, diverticulitis, appendicitis, hysterectomy, and salpingo-oophorectomies. She is here today with her for initial consultation with Medical Oncology. I spent 90 minutes with more than half of which was devoted to direct patient consultation. History of Present Illness: Adriana was in her usual state of health until February 2007 when her after school tutor found a lump in her right breast. She just had a negative mammogram a couple of months earlier. She received ultrasound and biopsy that demonstrated invasive ductal carcinoma. She subsequently saw Dr. Heart and received right-sided mastectomy and sentinel node mapping on March 19, 2007. [place] node mapping found 1 out of 1 sentinel node positive with isolated keratin-positive tumor cells. Four additional lymph nodes were found, one of which was involved with isolated tumor cells. Mastectomy specimen found invasive ductal carcinoma grade 1/3 that measured 1.4 cm in greatest dimension. Tumor extended to 0.1 cm of deep margin. There was no angiolymphatic invasion. 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 Ductal carcinoma in situ extends up to 0.1 cm of deep margin focally. Receptor status jaquez, tumor was estrogen-receptor positive in 80% of the invasive cancer, progesterone-receptor positive in 30% of the invasive cancer, and HER-2/mayela negative at 1+. Adriana subsequently received completion axillary lymph node dissection on April 19, 2007. Zero out of 16 lymph nodes was positive for cancer cell involvement. She has been recuperating well after the surgery. She started physical therapy yesterday and has improving range of motion on the right side. She denied swelling or shooting pain down her right upper extremity. She is currently not taking any pain medication. Her sleep pattern was interrupted as she frequently needs to toss and turn in bed trying to find a comfortable position at night. On the average she puts in about 5 hours of sleep every evening. She otherwise denied fever, chills, or night sweats. She has increased heartburn, but no cough, sputum production, chest pain, or pressure with no shortness of breath and no hemoptysis. She has mild nausea which is worse than her baseline, but no vomiting. She denied abdominal discomfort. She is moving her bowel regularly. There is no passage of bloody or tarry stool. She denied back pain or shooting pain down her lower extremities. No numbness or tingling sensation. No lightheadedness or dizziness on ambulation. She denied headache. There is no blurred vision or double vision. Overall, she is doing fine, but anxious to move on to the next stage of her breast cancer treatment. Review of Systems: As reviewed in the history of present illness, otherwise negative. Past Medical History: GERD and frequent bouts of diverticulosis. The patient had multiple abdominal surgeries in the past. She had a bowel resection due to fistula formation, history of a gallbladder resection, appendectomy for appendicitis, history of hysterectomy, and unilateral oophorectomy. Frequent episodes of small bowel obstruction almost on an yearly basis. Frequent episode of diverticulitis, in particular when she is in distress. She would present with fevers, significant abdominal pain, distention, lots of gas, but no passage of bloody stool. No diabetes or hypertension. History of episodes of atrial tachycardia. She had 2 episodes of catheter ablation, but still has recurrent events after that. Asthma and Sjogren's syndrome with dry eyes and dry mouth. She is using artificial tears and saliva. Medications: She is taking atenolol 25 mg a day, ezetimibe 10 mg a day, vitamin, glucosamine, DHEA, Pulmicort, Flonase, and Spiriva inhaler. Allergies: ALBUTEROL INHALER WHICH WOULD INCREASE HER HEART RATE. CAP CUTTER History: G5, P2, AA3 with 1 adopted child. She has a history of ectopic , and with that she lost 1 ovary. At age of 46, she had hysterectomy and removal of the remaining ovaries. She has been on hormone replacement therapy until the time of breast cancer diagnosis. She is currently off hormone replacement therapy with some mild hot flashes. Family History: Multiple diabetes and heart disease in her mother, her father, her uncles, and her aunts. There was no breast, ovarian, or colon cancer in the family. Sister has a history of cervical cancer. Social History: She is . She lives in [place]. 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 She denies smoking, but had exposure to secondhand smoking. Physical Examination: She is alert and oriented. She is afebrile. Her vital signs are documented in EPIC. Her conjunctivae are not pale. Sclerae anicteric. No oral lesion. Neck: Supple. No jugular vein engorgement. Chest: Symmetric to expansion. Breathing sound is clear. Heart: Regular rhythm. No murmur or gallop. Abdomen: Soft and nontender. No liver, spleen, or mass palpable. No increased rigidity or rebound tenderness. Bowel sound is active. Extremities: No cyanosis, clubbing, or edema. She has improving range of motion over her right shoulder. Currently, she can elevate her shoulder to about horizon. There is no knocking pain down her spinal column. No CV angle tenderness. Lymphatic: There is no supraclavicular, infraclavicular, axillary, or cervical lymphadenopathy palpable. Breast: Right breast is surgically missing. There is a well-healed transverse surgical scar. No increased local heat, erythema, tenderness, or induration. In her right axilla, there is a separate healing cervical scar without evidence of infection. Her right axilla feels empty. Neurologic: Intact and muscle power is 5/5 for both upper and left extremities and symmetric. No gross sensory deficit. Her gait, cerebellar exam, and cranial nerve exam are normal. Laboratory Study: Pathology from mastectomy, sentinel node mapping, and completion axillary lymph node dissection is as revealed in history of present illness. Complete blood cell panel in normal, and complete metabolic panel is normal. Assessment and Plan: Adriana is a pleasant 61-year-old female with a history of right-sided early stage breast cancer. She is status post right-sided simple mastectomy, sentinel node mapping, and completion axillary lymph node dissection for a T1c N0 (isolated tumor cell) grade 1 infiltrating ductal carcinoma. The tumor was estrogen-receptor positive, progesterone-receptor positive, and HER-2 negative for gene amplification by FISH. There was associated ductal carcinoma in situ, intermediate grade, with comedonecrosis. The margin for invasive cancer and ductal carcinoma in situ was closed at the deep margin at less than 0.1 cm. Adriana is 2 weeks out from her axillary dissection. She is recuperating well from her surgery. She has improving range of motion of her right shoulder, and there is no swelling over her right upper extremity. Adriana does have a number of comorbid situations which include Sjogren's syndrome, multiple abdominal surgeries with bowel resection, recurrent episodes of diverticulitis, and history of atrial tachyarrhythmia status post failed catheter ablation surgery. Adriana has frequent exacerbation of diverticulitis, gastroesophageal reflux disease, and small bowel obstruction. She is here today with her , Deepak, for initial consultation with Medical Oncology. We discussed that management of breast cancer requires a multimodality approach. After completion of local therapy with surgical resection and radiation treatment, many patients will require adjuvant systemic therapy. The purpose of adjuvant systemic therapy is to eradicate potentially present micrometastatic "tumor seeds." This is to reduce the risk of disease recurrence and to improve overall survival for patients with a diagnosis of early stage breast cancer. Adriana had already received mastectomy and completion axillary lymph node dissection. The deep margin for invasive cancer was close at 0.1 cm. The deep margin for ductal carcinoma in situ was close at less than 0.1 cm. I will touch base with Radiation Oncology to see whether Adriana should consider radiation treatment. Her underlying autoimmune disease with Sjogren's syndrome potentially can make her a challenging candidate for radiation treatment. I would, however, defer that to the expertise of my colleagues in Radiation Oncology. Regarding adjuvant systemic therapy, I think Adriana is an excellent candidate for adjuvant hormonal therapy. Her tumor is estrogen-receptor positive at 80%. We also discussed that some patients with breast cancer would benefit from adjuvant chemotherapies. Decision on chemotherapy, however, needs to consider both the risk and benefit involved with the treatment. Adriana had a small tumor (1.4 cm) and low-grade (grade 1/3). Tumor was receptor positive and HER-2 negative. There was no angiolymphatic invasion. The cancer was diagnosed while she was on hormone replacement therapies. These are all good prognostic features for tumors with lower risk of recurrence. On the other hand, sentinel node mapping and completion lymph node dissection found 2 lymph nodes involved with isolated tumor cells. Technically, this is N0 disease. At this time, it is not clear what is the meaning and prognostic significance of lymph nodes involved with isolated tumor cells only. Some studies suggest that isolated tumor cells will not carry a significant adverse prognosis. Others suggest some compromised survival and disease recurrence. In my opinion, based on the above conventional prognostic factors, I do not think that Redds cancer is of very high risk of recurrence that would make chemotherapy a must. In addition, we need to consider her different comorbid conditions, which can be associated with increased risk or side effects with chemotherapies. I proposed to Adriana and her , Deepak, to use oncotype testing to help us obtain additional prognostic information. Oncotype testing is to look at the expression of a set of 21 genes in a primary tumor tissue. It is an FDA-approved testing strategy that can help us evaluate the risk of recurrence. Reports also indicate that tumor with high recurrence score would predict high response rates to chemotherapy as well. Adriana's tumor is receptor-positive and node negative, therefore she is a great candidate for oncotype testing. If her oncotype testing results come back low for breast cancer recurrence, I think this will be a good argument for resorting to endocrine therapy only. If her testing score comes back high, I think she will need chemotherapies. If her test score comes back in the middle, we can sit down and further discuss the risks and benefits of chemotherapy before we make final decision. I told Adriana and her , Deepak, that if her test score comes back intermediate, I will be in favor of chemotherapy given the involvement of her axillary lymph nodes with tiny amounts of cancer cells. Although we do not have definitive evidence for that, involvement with isolated tumor cells may mean a slightly increased risk of recurrence which would make me lean towards more of chemotherapy if her test scores come back in the middle. We discussed that oncotype testing could be done either as part of our clinical trial or can be done off study. After much discussion, Adriana and her got back to me and indicated to me that they did not feel comfortable about the randomization process in the clinical trial. Therefore, they have decided to proceed with the testing without participation in the trial. We have therefore had the testing underway already. We briefly discussed the side effects that can be associated with chemotherapies. This will include fatigue, hair loss, bone marrow suppression, nausea, vomiting, mucositis, and diarrhea. At this time, I have not yet decided what chemotherapy regimen to recommend to Adriana. If her risk of recurrence is felt to be intermediate, I think 4 cycles of chemotherapy such as Adriamycin plus Cytoxan or Taxotere plus Cytoxan would be reasonable. If her risk of recurrence is high after oncotype testing, we will consider dose-dense chemotherapy with Adriamycin plus Cytoxan followed by Taxol. Given her cardiac history in the past, Adriana will need echocardiogram and cardiac clearance before chemotherapies. We would see her back in approximately 2 weeks after we had our testing result to finalize our treatment plan. I discussed with Adriana that studies have shown that concurrent chemotherapy and hormonal therapy would actually compromise the efficacy of adjuvant treatment. Our approach would be chemotherapy if she needs it and then followed by hormonal therapies. If she is not going to receive chemotherapy, we will initiate hormonal therapy promptly. We would be in touch with her in a couple of weeks. Tricia Velazquez M.D., Ph.D. / [id number] / [id number] / [id number] / [id number] cc: Adriana Watson M.D. Radiation Oncology Henri Heart M.D. Surgical Oncology Electronically signed by Tricia Velazquez 07-07-2007 10:21:31 AM documented in this encounter Plan of Treatment Not on filedocumented as of this encounter Visit Diagnoses Not on filedocumented in this encounter
--- OUTSIDE RECORDS SUMMARY | ~2020-05-04 | XMS | Encounter Summary ---
Demographics + + + | Address | [address] | | | [place] [address] | + + + | Home Phone [...] + | Gene Gee | ECON | [address] | | | | | [place], | | | | | [place] [address] | | + + + + + Care Team Providers + +------+ + | Care Technical Specialist Cytology Name | Role | Phone | + +------+ + | Antony Ribera MD | PCP | | + +------+ + Reason for Visit + +--------+ + | Reason | Onset | Comments | | | Date | | + +--------+ + | Refill Request | 06/05/ | Request for Pulmicort Kevenhlr 180 mcg astr Budesonide | | | 2010 | Inhal aero powd 1 | + +--------+ + Encounter Details +--------+--------+ + + + | Date | Type | Department | Care Team | Description | +--------+--------+ + + + | 06/05/ | Refill | Pulmonary & | Sergio Smith | Refill Request | | 2010 | | Critical Care | MD Dianna | (Request for | | | | Medicine at | | Pulmicort Flxhlr 180 | | | | [facility] | | mcg astr Budesonide | | | | [address] | | Inhal aero powd 1) | | | | [facility] | | | | | | [facility], [address]rd Floor | | | | | | [place], [place] | | | | | | [address] | | | | | | [phone] | | | +--------+--------+ + + + [...] this encounter Miscellaneous Notes Telephone Encounter - Lambert Ward - 06/07/2011 9:42 AM PSTPharmacy was informed that the Pulmicort Flxhlr 180 mcg astr Budesonide Inhal aero powd 1 is for a 90 day supply and not 9 0 each, per her last refill. Pharmacist was informed.Electronically signed by Lambert rodriguez 06/07/2011 9:43 AM PSTTelephone Encounter - Sergio Smith MD - 06/05/2011 2:30 PM PSTPrescription approved and signed. Will be faxed to patient preferred pharmacy. elephone Encount er - Lambert Ward - 06/05/2011 9:35 AM PST Reason for Call: Chief Complaint Patient presents with Refill Request Request for Pulmicort Flxhlr 180 mcg asr Budesonide Inhal aero powd 1 Patient: Adriana Flynn: Home Phone Work Phone Last Refill in [facility] was on 05/26/11 with Sergio Smith MD. Next Appointment in [facility] is on 09/19/11 at 1:00 pm with Sergio Smith MD. Pharmacy Preferences: [id number] [place] [address] Faxed refill request for Pulmicort Flxhlr 180 mcg asr Budesonide Inhal aero powd 1.Electron ically signed by Lambert Ward at 06/05/2011 9:51 AM PSTdocumented in this encounter Plan of Treatment Not on filedocumented as of this encounter Visit Diagnoses Not on filedocumented in this encounter"
--- OUTSIDE RECORDS SUMMARY | ~2020-05-04 | XMS | Encounter Summary ---
Demographics + + + | Address | [address] | | | [place] [address] | + + + | Home Phone [...] + | Gene Gee | ECON | [address] | | | | | [place], | | | | | [place] [address] | | + + + + + Care Team Providers + +------+ + | Care Slurry Tank Tender Name | Role | Phone | + +------+ + | Antony Ribera MD | PCP | | + +------+ + Encounter Details +--------+ + + + + | Date | Type | Department | Care Team | Description | +--------+ + + + + | 10/23/ | Hospital | Women's Imaging | [facility], | | | 2016 | Encounter | [facility] [address] | [address] | | | | | [facility] [address] | [place], [place] | | | | | [place], [address] | [address] | | | | | [place], [place] | [phone] | | | | | [address] | | | | | | [phone] | | | +--------+ + + + [...] | | 0 | | | | #[id number] | daily. | | | | | [...] | + +--------+ + + + | [facility] | Routin | 10/23/2016 | Malignant neoplasm | Results for this | | LEFT W/CAD | e | 11:45 AM | of right female | procedure are in the | | | | PDT | breast, unspecified | results section. | | | | | site of breast (HCC) | | + +--------+ + + + documented in this encounter Results [facility] LEFT [...] of | | | right female breast [place] [facility] LEFT W/CAD: October 23, 2016 | | | - CC and MLO view(s) were taken of the left | | | breast. Prior study comparison: October 11, 2015, [facility] | | | LEFT w/CAD performed at [facility]. September | | | 2014, [place] [facility] LEFT w/CAD performed at [facility] | | | [facility]. The breast tissue is heterogeneously dense. [...] Hologic System with R2 CAD. Performed at [facility] and | | | [facility]. 3D tomosynthesis mammography was performed as [...] DIAGNOSTIC LEFT | | w/CAD performed at [facility]. September, [place] [facility] | | DIAGNOSTIC LEFT w/CAD performed at [facility].The breast tissue | | is heterogeneously dense. This may lower the sensitivity of mammography. Left: Stable | | left upper outer 2:00 cyst. Otherwise, No suspicious calcifications, masses, or | | architectural distortion present.Right: No suspicious calcifications, masses, or | | architectural distortion present.The images were obtained using full field digital | | mammography on the dedicated PROSimity System with R2 CAD. Performed at [facility] and | | [facility]. 3D tomosynthesis mammography wasperformed as part [...] field digital mammography on | |the dedicated Holo[employer] System with R2 CAD. Performed at [place] [facility]. 3D tomosynthesis mammography was | [...] right female breast, unspecified site of breast | + + documented in this encounter"
--- OUTSIDE RECORDS SUMMARY | ~2020-05-04 | XMS | Encounter Summary ---
Demographics + + + | Address | [address] | | | [place] [address] | + + + | Home Phone [...] + | Gene Gee | ECON | [address] | | | | | [place], | | | | | [place] [address] | | + + + + + Care Team Providers + +------+ + | Care Business Planning Manager Name | Role | Phone | + +------+ + | Antony Ribera MD | PCP | | + +------+ + Reason for Visit Global Period - Transplant (Routine) +--------+--------+ + [...] | | | | | | | [address] | | | | | | [address] | | | | | | | [facility] | | [facility] | | [facility], | | | | | | | [address], | | | | | | | 5th Floor | | | | | | | [place], [place] | | | | | | | [address] | | | | | | | Phone: | | | | | | | [phone] | +--------+--------+ + + + + Encounter Details +--------+---------+ + + + | Date | Type | Department | Care Team | Description | +--------+---------+ + + + | 10/30/ | Office | Plastic and | Errol Gold | Acquired Absence of | | 2012 | Visit | Reconstructive | MD [address] | Breast (Primary Dx); | | | | Surgery at [facility] [address] | Carcinoma in situ | | | | [address] [facility] | [address] [place], [place] | of breast | | | | for Health and | [address] | | | | | [facility], [address], | | | | | | 5th Floor | | | | | | [place], [place] | | | | | | [address] | | | | | | [phone] | | | +--------+---------+ + + + [...] documented as of this encounter Progress Notes Alla Buchanan, Errol Holman - 10/30/2012 3:07 PM PDTPlastic and Reconstructive Surgery Follow-up History of Present Illness: Adriana Flynn is a 67 y.o. 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 Yuko ent had 30 cc of serosanguinous fluid aspirated last week. She returns today because she fee ls more fluid. Working with Katty Chaney for scar revision. Physical Exam: Vitals: There were no vitals taken for this visit. General Appearance: Well-developed, well-nourished adult female in no apparent distress. Right breast: Incision healing well, erythema absent, no edema, fluctuance absent, resolvi ng ecchymosis. Implant in good position, soft. No discrete masses. Capsular contracture: Ba latoya grade I. Left breast: Incision healing well, erythema absent, mild edema - much improved from last v isit, no fluctuance, small area of ecchymosis near last aspiration. Examined with ultrasound and very small fluid collection noted in superior breast between subcutaneous tissue and br east tissue. Edema noted within breast tissue. Nipple pink with slightly improved sensation Impression: Left breast fluid collection Plan: Using sterile technique and ultrasound guidance, 8 cc of serosanguinous fluid was aspirated . 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
--- OUTSIDE RECORDS SUMMARY | ~2020-05-04 | XMS | Encounter Summary ---
Demographics + + + | Address | [address] | | | [place] [address] | + + + | Home Phone [...] + | Gene Gee | ECON | [address] | | | | | [place], | | | | | [place] [address] | | + + + + + Care Team Providers + +------+ + | Care Electric Motor Mechanic Name | Role | Phone | [...] | | | | | | | [place] | | | | | | | [id number] | | | | | | | [facility] | | | | | | | [place], | | | | | | | [place] [address] | | | | | | | Phone: | | | | | | | [phone] | | | | | | | Fax: | | | | | | | [phone] | +--------+--------+ + + + + Encounter Details +--------+ + + + + | Date | Type | Department | Care Team | Description | +--------+ + + + + | 12/29/ | Hospital | [facility] [address] | Gary Fuentes MD | | | 2007 - | Encounter | [place] [id number] | [address] | | | | | [facility] | [address], | | | 01/01/ | | [place], [place] | [place] [address] | | | 2007 | | [address] | [phone] | | | | | [phone] | | | +--------+ + + + [...] + + + | Blood Pressure | 122/69 | 01/02/2008 7:19 AM | | | | | PDT | | + + + + + | Pulse | 73 | 01/02/2008 7:19 AM | | | | | PDT | | + + + + + | Temperature | 35.3 C (95.5 F) | 01/02/2008 7:19 AM | | | | | PDT | | + + + + + | Respiratory Rate | 16 | 01/02/2008 7:19 AM | | | | | PDT | | + + + + + | Oxygen Saturation | 99% | 01/02/2008 7:19 AM | | | | | PDT | | + + + + + | Inhaled Oxygen | - | - | | | Concentration | | | | + + + + + | Weight | 68.2 kg (150 lb 5.7 | 12/30/2007 6:43 PM | | | | oz) | PDT | | + + + + + | Height | - | - | | + + + + + | Body Mass Index | 24.45 | 12/30/2007 10:25 AM | | | | | PDT | | + + + + + documented in this encounter Discharge Summaries Other, Faculty - 01/02/2008 12:00 PM PDT Other, Faculty - 01/02/2008 12:00 PM PDT Other, Faculty - 01/02/2008 12:00 PM PDT Byron Buchanan, [facility] - 01/02/2008 10:21 AM PDTEP Service INPATIENT Discharge Summary Discharge Date: 01/02/2008 Service: EP You or your family member have been primarily hospitalized for: Dofetilide initation Principal Final Diagnosis: Atrial Tachycardia Reason for Admission, Significant Findings, Treatment, and Complications Brief Hospital Course: Patient admitted for initation of Dofetilide given that she was no longer able to receive m oricizine. She has done with the latter medication. She was started on Dofetilide 500mcg Q 12H dose, and tolerated the drug well. She had no telemetry events and no atrial arrhythmia s. Her QTc remained b/w 480 to 500msec. Overall, she had uneventful hospital course. Diet: Regular Activity: No Restrictions Medications: 1) Continue all outpatient medications 2) Dofetilide 500mcg Q12Hrs (prescription faxed to listed pharmacy) Special Instructions: Advised her that if additional medications is to be started in the outpatient setting, please make her physician aware of the interaction with Dofetilide. In general she needs to avoid all QT prolonging drugs (www.qtdrugs.org). Call: Frank Matthews at Phone # [phone] If you have any of the following: Difficulty breathing or unusual shortness of breath Excessive bleeding, drainage at the operative site Follow Up Appointments: PCP: Antony Ribera MD When? 3-4 weeks Other: Follow Up Tests: (Tests at [facility] must be entered into Epic) ECG in 3-[address] Ribera and then please have ECG faxed to Dr. Fuentes's office for revi ew Condition On Discharge: Stable Vital Signs at discharge as appropriate: BP: 122/69 mmHg (01/02/08 7:19 AM) Pulse: 73 (01/02/08 7:19 AM) Resp: 16 (01/02/08 7:19 AM) Wt - Scale: 68.2 kg (150 lbs 5.7 oz) (12/30/07 6:43 PM) Discharge Patient To: Home Does patient have a planned readmission: No Discharge Summary Completed?: No Discharging Provider: MARLY MATTHEWS MD Discharging Attending: Gary FuentesElectronlucinda signed by Gary Fuentes at 01/02/2008 10:52 AM P DTdocumented in this encounter Discharge Instructions Instructions Niranjan Lorenzana RN - 01/02/2008 INPATIENT PROVIDER DISCHARGE AND INTERDISCI PLINARY INSTRUCTIONS Discharge Date: 01/02/2008 Service: EP You or your family member have been primarily hospitalized for: Dofetilide initation Principal Final Diagnosis: Atrial Tachycardia Reason for Admission, Significant Findings, Treatment, and Complications Brief Hospital Course: Patient admitted for initation of Dofetilide given that she was no longer able to receive moricizine. She was started on 500mcg Q12H dose, and tolerated the drug well. She had no t elemetry events and no atrial arrhythmias. Her QTc remained b/w 480 to 500msec. Overall, s he had uneventful hospital course. Diet: Regular Activity: No Restrictions Medications: 1) continue all outpatient medications 2) Dofetilide 500mcg Q12H, prescription faxed to her pharmacy Special Instructions: Advised her that if additional medications is to be started in the outpatient setting, please make her physician aware of the interaction with Dofetilide. In general she needs to avoid all QT prolonging drugs (www.qtdrugs.org). Call: Frank Matthews at Phone # [phone] If you have any of the following: Difficulty breathing or unusual shortness of breath Excessive bleeding, drainage at the operative site Follow Up Appointments: PCP: Antony Ribera MD When? 3-4 weeks Other: Follow Up Tests: (Tests at [facility] must be entered into Epic) ECG in 3-[address] Ribera and then please have ECG faxed to Dr. Fuentes's office for rev iew Condition On Discharge: Stable Vital Signs at discharge as appropriate: BP: 122/69 mmHg (01/02/08 7:19 AM) Pulse: 73 (01/02/08 7:19 AM) Resp: 16 (01/02/08 7:19 AM) Wt - Scale: 68.2 kg (150 lbs 5.7 oz) (12/30/07 6:43 PM) Discharge Patient To: Home Does patient have a planned readmission: No Discharge Summary Completed?: No Discharging Provider: MARLY MATTHEWS MD Discharging Attending: Gary Fuentes INPATIENT NURSE ORDER FOR DISCHARGE AND INTERDISCIPLINARY INSTRUCTIONS DISCHARGE DATE: 01/02/2008 PATIENT EDUCATION: Patient given the following printed education materials. Education abo ut dofetilide. Effects and side effects discussed. Review with patient/family: Understanding of disease/injury/surgical repair Yes Signs/symptoms that they should report Yes Understanding of medications and side effects Yes Activity and diet instructions Yes Follow-up appointments Yes Any concerns/fears N/A Smoking Cessation Counseling/Information was given: Yes Additional Instructions: (ex: wound care, tube feeding, trach care, CBG monitoring etc.) Personal Effects/Medications: Sent home with patient Discharged Via: Ambulatory Mode of Transportation: Car Accompanied by: Family/Responsible [employer] Name: (when applicable) Not applicable Discharge Nurse: Niranjan Baez Date: 01/02/2008 Discharge Time: 10:56 AM documented in this encounter Medications at [...] documented as of this encounter Progress Notes Marly Matthews Md - 01/02/2008 10:11 AM PDTDoing well, no complains BP 122/69 | Pulse 73 | Temp 35.3 C (95.5 F) | Resp 16 | Wt 68.2 kg (150 lbs 5.7 oz) | S pO2 99% Exam is unchanged ECG: SR, QTc 498msec Impression Doing well with Dofetilide, remains stable Plan D/C home today Marly Lang Md - 01/01/2008 11:29 AM PDTNo complains today. No overnight issues. BP 108/60 | Pulse 73 | Temp 36 C (96.8 F) | Resp 16 | Wt 68.2 kg (150 lbs 5.7 oz) | SpO 2 99% Exam remains unchanged Tele: SR, APC ECG: SR, QTC approx 500msec Impression Atrial arrhythmia on dofetilide, currently doing well with max dose. Plan Continue present treatment Likely discharge tomorrow. Marly Matthews MD Fellow, Clinical Cardiac Electrophysiology Marly Lang Md - 10:07 AM PDTDoing well with Dofetilide. No associated side effects Tele: SR, APC BP 116/70 | Pulse 83 | Temp 36.6 C (97.9 F) | Resp 16 | Wt 68.2 kg (150 lbs 5.7 oz) | S pO2 97% Exam unchanged Labs: Cr 0.8, K 4.3 ECG: SR APC, QT approaching 480msec A/P Atrial arrhythmia doing well with dofetilide Plan Continue current medications and to monitor QT as written Marly Matthews MD Fellow, Clinical Cardiac Electrophysiology Bharati Lawton - 008 9:39 AM PDTINITIAL CASE MANAGEMENT ASSESSMENT Reviewed MD notes: yes Preadmit living situation: Home with spouse Insurance: [employer] Additional needs assessment: Pt admitted for dofetilide initiation. Expect pt to dc home without any needs. SAM Walton # [id number] documented in this encounte r H&P Notes Marly Matthews Md - 12/30/2007 4:01 PM PDT EP service Mrs. Flynn is a 62 year old female being admitted for dofetilide initation. She has histor y of atrial tachycardia that has been difficult to terminate with RF ablation (last attempt 2004 and 2005). Subsequently thereafter has been placed on Moricizine and has done well. H owever this medication is being taken of the market and patient has not tolerated other medi cations. As a result she is now here for Dofetilide initation. She has stopped her Moriciz ine 3 days ago and since then has had short episode of palpiations. Currently denies any co mplains. Past Medical History Diagnosis Date Sjogrens Syndrome 1995 Fibromyalgia 1995 Mitral Valve Prolapse 1989 GERD (Gastroesophageal Reflux Disease) 1995 Asthma 1999 TMJ (Dislocation of Temporomandibular Joint) Fibrocystic Disease of Breast 1979 Diverticul Disease Small and Large Intestine, no Perforati or Abscess Skin Cancer back Small Bowel Obstruction 07/20,10/19,02/19 Atrial Tachycardia 07/20 Bursitis 2006 Plantar Fascial Fibromatosis 2007 plantar fascial tear Osteopenia 12/30/2007 DXA 09/05/07: L -2.1 H -1.1 Additionally has Left breast cancer s/p chemotherapy with taxotere/cytoxan. Currently on A rimidex Past Surgical History Procedure Date Ectopic age [...] Rose Heart ablation 12/16/2004,09/21/2005 Dr. Fuentes, [facility] Allergies Allergen Reactions Sulfa (sulfonamides) Swelling-Facial Ciprofloxacin [...] (25 mg) by oral route once daily Docusate Sodium (STOOL SOFTENER) 100 mg Oral Capsule take 1 capsule (100 mg) by oral ro hlilary once daily at bedtime as needed famotidine [...] 1 MULTIVITAMIN OR one daily PROTONIX 40 MG [...] by oral route once daily with food Family Hx and Social Hx is non-contriubtory ROS: Comprehensive ROS is unremarkable Exam: In no apparent distress BP 125/76 | Pulse 76 | Temp 36.6 C (97.9 F) | Resp 20 | SpO2 100% HEENT: GIOVANNY, EOMI, No significant oropharyngeal findings NECK: supple with non-palpable thyroid gland. No audible cardotid brutis or eleveated JVP Lungs are CTA b/l CVS: regular, regular, with soft systolic murmur, rubs, or gallops Abd: is soft, NT/ND, with good bowel sounds. No organomegaly. Ext: no edema, with 2+ distal pulses. Skin: warm to touch with no apparent rashes Neuro: AAOx3, with no gross asymmetry ECG: Pending Labs: 07/2007 Cr 0.9 Impression Paroxysmal atrial tachycardia here for switch from moricizine to Dofetilide for further med ical management. Have explained risk, benefits, and alternatives. At present patient is wi lling to undergo the intiation of medication. We will monitor her QT interval after each do se. Based on her age and creatinine, she should tolerate the 500mcg dose well. Unclear if there is any interaction with Amiridex, none noted in the micromedex. She will continue all her other ouptatient medications. Plan 1) ECG now to get a baseline QT 2) Dofetilide 500mcg Q12, follow ECG 2-3 hours after each dose 3) Continue Atenolol but decrease dose to 25mg daily 4) Continue all other medications. Marly Matthews MD Fellow, Clinical Cardiac Electrophysiology documented in this encounter Miscellaneous Notes Scan - Other, Faculty - 01/02/2008 12:00 PM PDT Scan - Other, Faculty - 01/02/2008 12:00 P M PDT Scan - Other, Faculty - 01/02/2008 12:00 PM PDT Scan - Other, Faculty - 01/02/2008 1 2:00 PM PDT Scan - Other, Faculty - 01/02/2008 12:00 PM PDT Scan - Other, Faculty - 2007 12:00 PM PDT Scan - Other, Faculty - 01/02/2008 12:00 PM PDT Scan - Other, Faculty - 01/02/2008 12:00 PM PDT documented in this encounter Plan of Treatment Not on filedocumented as of this encounter Procedures + +--------+ + + + | Procedure Name | Priori | Date/Time | Associated Diagnosis | Comments | | | ty | | | | + +--------+ + + + | RESP CARE THERAPY | Routin | 01/02/2008 | | Results for this | | | e | 9:07 AM | | procedure are in the | | | | PDT | | results section. | + +--------+ + + + | 12 LEAD ECG | Routin | 01/02/2008 | | Results for this | | | e | 8:55 AM | | procedure are in the | | | | PDT | | results section. | + +--------+ + + + | RESP CARE THERAPY | Routin | 01/01/2008 | | Results for this | | | e | 8:30 PM | | procedure are in the | | | | PDT | | results section. | + +--------+ + + + | RESP CARE THERAPY | Routin | 01/01/2008 | | Results for this | | | e | 9:00 AM | | procedure are in the | | | | PDT | | results section. | + +--------+ + + + | RESP CARE THERAPY | Routin | 12/31/2007 | | Results for this | | | e | 9:58 PM | | procedure are in the | | | | PDT | | results section. | + +--------+ + + + | 12 LEAD ECG | Routin | 12/31/2007 | | Results for this | | | e | 9:17 PM | | procedure are in the | | | | PDT | | results section. | + +--------+ + + + | 12 LEAD ECG | Routin | 12/31/2007 | | Results for this | | | e | 9:17 AM | | procedure are in the | | | | PDT | | results section. | + +--------+ + + + | RESP CARE THERAPY | Routin | 12/31/2007 | | Results for this | | | e | 9:00 AM | | procedure are in the | | | | PDT | | results section. | + +--------+ + + + | RESP CARE THERAPY | Routin | 12/31/2007 | | Results for this | | | e | 6:00 AM | | procedure are in the | | | | PDT | | results section. | + +--------+ + + + | RESP CARE THERAPY | Routin | 12/30/2007 | | Results for this | | | e | 11:00 PM | | procedure are in the | | | | PDT | | results section. | + +--------+ + + + | 12 LEAD ECG | Routin | 12/30/2007 | | Results for this | | | e | 9:16 PM | | procedure are in the [...] + | COMPLETE METABOLIC | Routin | 12/30/2007 | | Results for this | | SET | e | 4:02 PM | | procedure are in the | | (NA,K,CL,CO2,BUN,CRE | | PDT | | results section. | | AT,GLUC,CA,AST,ALT,B | | | | | | DANICA TOTAL,ALK | | | | | | PHOS,ALB,PROT TOTAL) | | | | | + +--------+ + + + | PTH, SERUM | Routin | 12/30/2007 | | Results for this | | | e | 4:02 PM | | procedure are in the | | | | PDT | | results section. | + +--------+ + + + | TSH | Routin | 12/30/2007 | | Results for this | | | e | 4:02 PM | | procedure are in the | | | | PDT | | results section. | + +--------+ + + + documented in this encounter Results RESP CARE THERAPY (01/02/2008 9:07 AM PDT) + + + + + [...] | | | | | Signed by: Boubacar | | | | | | DAVID Rodriguez | | | | + + + [...] + | [facility] | [address] | [place], [place] | | | THERAPY | [address] | [address] | | + + + + + | [facility] | [address] | [place], [place] | | | THERAPY | [address] | [address] | | + + + + + 12 LEAD ECG (01/02/2008 8:55 AM PDT) + + + + + + | Component | Value | Ref Range | Performed | Pathologist | | | | | At | Signature | + + + + + + | VENTRICULAR | 77 | BPM | [facility] | | | RATE | | | OF | | | | | | CARDIOLOGY | | + + + + + + | ATRIAL RATE | 77 | BPM | [facility] | | | | | | OF | | | | | | CARDIOLOGY | | + + + + + + | P-R | 154 | ms | [facility] | | | INTERVAL | | | OF | | | | | | CARDIOLOGY | | + + + + + + | QRS | 78 | ms | [facility] | | | DURATION | | | OF | | | | | | CARDIOLOGY | | + + + + + + | QT | 442 | ms | [facility] | | | | | | OF | | | | | | CARDIOLOGY | | + + + + + + | QTC | 500 | ms | [facility] | | | | | | OF | | | | | | CARDIOLOGY | | + + + + + + | P AXIS | 75 | degrees | [facility] | | | | | | OF | | | | | | CARDIOLOGY | | + + + + + + | R AXIS | 73 | degrees | [facility] | | | | | | OF | | | | | | CARDIOLOGY | | + + + + + + | T AXIS | 30 | degrees | [facility] | | | | | | OF | | | | | | CARDIOLOGY | | + + + + + + | EKG | Normal sinus | | [facility] | | | DIAGNOSIS | rhythmNonspecific T wave | | OF | | | | abnormalityProlonged | | CARDIOLOGY | | | | QTAbnormal ECG"I have | | | | | | personally interpreted | | | | | | this report, either | | | | | | alone or with a | | | | | | trainee."Confirmed by | | | | | | JAMES HOLT ([id number]) on | | | | | | 05-Jan-2008 14:56:09 | | | | + + + [...] view image for the detailed interpretation from [employer] results. | CARDIOLOGY | | | | + + + + + + + + | Performing | Address | City/State/Zipcode | Phone Number | | Organization | | | | + + + + + | [facility] | [address] | [place], [place] | | | CARDIOLOGY | [address] | [address] | | + + + + + | [facility] | [address] | [place], [place] | | | CARDIOLOGY | [address] | [address] | | + + + + + RESP CARE THERAPY (01/01/2008 8:30 PM PDT) + + + + + [...] + | [facility] | [address] | [place], [place] | | | THERAPY | [address] | [address] | | + + + + + | [facility] | [address] | [place], [place] | | | THERAPY | [address] | [address] | | + + + + + RESP CARE THERAPY (01/01/2008 9:00 AM PDT) + + + + [...] Choe, | | | | | | BROWNELL OPERATOR | | | | + + + [...] [facility] | [address] | [place], [place] | | | THERAPY | [address] | [address] | | + + + + + | [facility] | [address] | [place], [place] | | | THERAPY | [address] | [address] | | + + + + + RESP CARE THERAPY (12/31/2007 9:58 PM PDT) + + + + + [...] | | | | | Signed by: Leydi | | | | | | DAVID Bingham | | | | + + + [...] + | [facility] | [address] | [place], [place] | | | THERAPY | [facility] | [address] | | + + + + + | [facility] | [address] | [place], [place] | | | THERAPY | [address] | [address] | | + + + + + 12 LEAD ECG (12/31/2007 9:17 PM PDT) + + + + + [...] + + + + | P-R | 156 | ms | [facility] | | | INTERVAL | | | OF | | | | | | CARDIOLOGY | | + + + + + + | QRS | 80 | ms | [facility] | | | DURATION | | | OF | | | | | | CARDIOLOGY | | + + + + + + | QT | 440 | ms | [facility] | | | | | | OF | | | | | | CARDIOLOGY | | + + + + + + | QTC | 471 | ms | [facility] | | | | | | OF | | | | | | CARDIOLOGY | | + + + + + + | P AXIS | 74 | degrees | [facility] | | | | | | OF | | | | | | CARDIOLOGY | | + + + + + + | R AXIS | 62 | degrees | [facility] | | | | | | OF | | | | | | CARDIOLOGY | | + + + + + + | T AXIS | 54 | degrees | [facility] | | | | | | OF | | | | | | CARDIOLOGY | | + + + + + + | EKG | Normal sinus | | [facility] | | | DIAGNOSIS | rhythmNormal ECG"I have | | OF | | | | personally interpreted | | CARDIOLOGY | | | | this report, either | | | | | | alone or with a | | | | | | trainee."Confirmed by | | | | | | JAMES HOLT ([id number]) on | | | | | | 01-Jan-2008 13:26:54 | | | | + + + [...] view image for the detailed interpretation from [employer] results. | CARDIOLOGY | | | | + + + + + + + + | Performing | Address | City/State/Zipcode | Phone Number | | Organization | | | | + + + + + | [facility] | [address] | [place], [place] | | | CARDIOLOGY | [facility] | [address] | | + + + + + | [facility] | [address] | [place], [place] | | | CARDIOLOGY | [facility] | [address] | | + + + + + 12 LEAD ECG (12/31/2007 9:17 AM PDT) + + + + + + | Component | Value | Ref Range | Performed | Pathologist | | | | | At | Signature | + + + + + + | VENTRICULAR | 71 | BPM | [facility] | | | RATE | | | OF | | | | | | CARDIOLOGY | | + + + + + + | ATRIAL RATE | 71 | BPM | [facility] | | | | | | OF | | | | | | CARDIOLOGY | | + + + + + + | P-R | 144 | ms | [facility] | | | INTERVAL | | | OF | | | | | | CARDIOLOGY | | + + + + + + | QRS | 86 | ms | [facility] | | | DURATION | | | OF | | | | | | CARDIOLOGY | | + + + + + + | QT | 462 | ms | [facility] | | | | | | OF | | | | | | CARDIOLOGY | | + + + + + + | QTC | 502 | ms | [facility] | | | | | | OF | | | | | | CARDIOLOGY | | + + + + + + | P AXIS | 82 | degrees | [facility] | | | | | | OF | | | | | | CARDIOLOGY | | + + + + + + | R AXIS | 77 | degrees | [facility] | | | | | | OF | | | | | | CARDIOLOGY | | + + + + + + | T AXIS | 70 | degrees | [facility] | | | | | | OF | | | | | | CARDIOLOGY | | + + + + + + | EKG | Normal sinus rhythmT | | [facility] | | | DIAGNOSIS | wave abnormality, | | OF | | | | consider anterior | | CARDIOLOGY | | | | ischemiaProlonged | | | | | | QTAbnormal ECG"I have | | | | | | personally interpreted | | | | | | this report, either | | | | | | alone or with a | | | | | | trainee."Confirmed by | | | | | | JAMES HOLT ([id number]) on | | | | | | 01-Jan-2008 13:01:30 | | | | + + + [...] + + + | Please click | [facility] | | on view image for the detailed interpretation from [employer] results. | CARDIOLOGY | | | | + + + + + + + + | Performing | Address | City/State/Zipcode | Phone Number | | Organization | | | | + + + + + | [facility] | [address] | [place], [place] | | | CARDIOLOGY | [address] | [address] | | + + + + + | [facility] | [address] | [place] | | | CARDIOLOGY | [address] | [address] | | + + + + + RESP CARE THERAPY (12/31/2007 9:00 AM PDT) + + + + [...] | | | | | Signed by: Chon Kim, | | | | | | BROWNELL OPERATOR | | | | + + + [...] + | [facility] | [address] | [place], [place] | | | THERAPY | [address] | [address] | | + + + + + | [facility] | [address] [facility] | [place], [place] | | | THERAPY | [address] | [address] | | + + + + + RESP CARE THERAPY (12/31/2007 6:00 AM PDT) + + + + + + | Component | Value | Ref Range | Performed | Pathologist | | | | | At | Signature | + + + + + + | RESPIRATORY | Order _ Neb/IPPB/Cneb/ | | [facility] | | | CARE | Exchange therapy | | RESPIRATORY | | | | omitted.Reason : New | | THERAPY | | | | order today. Supply | | | | | | exchange not indicated. | | | | | | - Time | | | | | [...] + | [facility] | [address] | [place], [place] | | | THERAPY | [facility] | [address] | | + + + + + | [facility] | [address] | [place], [place] | | | THERAPY | [facility] | [address] | | + + + + + RESP CARE THERAPY (12/30/2007 11:00 PM PDT) + + + + + [...] + | [facility] | [address] | [place], [place] | | | THERAPY | [address] | [address] | | + + + + + | [facility] | [address] | [place], [place] | | | THERAPY | [address] | [address] | | + + + + + 12 LEAD ECG (12/30/2007 9:16 PM PDT) + + + + + + | Component | Value | Ref Range | Performed | Pathologist | | | | | At | Signature | + + + + + + | VENTRICULAR | 63 | BPM | [facility] | | | RATE | | | OF | | | | | | CARDIOLOGY | | + + + + + + | ATRIAL RATE | 63 | BPM | [facility] | | | | | | OF | | | | | | CARDIOLOGY | | + + + + + + | P-R | 156 | ms | [facility] | | | INTERVAL | | | OF | | | | | | CARDIOLOGY | | + + + + + + | QRS | 82 | ms | [facility] | | | DURATION | | | OF | | | | | | CARDIOLOGY | | + + + + + + | QT | 472 | ms | [facility] | | | | | | OF | | | | | | CARDIOLOGY | | + + + + + + | QTC | 483 | ms | [facility] | | | | | | OF | | | | | | CARDIOLOGY | | + + + + + + | P AXIS | 77 | degrees | [facility] | | | | | | OF | | | | | | CARDIOLOGY | | + + + + + + | R AXIS | 71 | degrees | [facility] | | | | | | OF | | | | | | CARDIOLOGY | | + + + + + + | T AXIS | 58 | degrees | [facility] | | | | | | OF | | | | | | CARDIOLOGY | | + + + + + + | EKG | Normal sinus | | [facility] | | | DIAGNOSIS | rhythmNormal ECG"I have | | OF | | | | personally interpreted | | CARDIOLOGY | | | | this report, either | | | | | | alone or with a | | | | | | trainee."Confirmed by | | | | | | JAMES HOLT ([id number]) on | | | | | | 31-Dec-2007 10:55:04 | | | | + + + [...] view image for the detailed interpretation from [employer] results. | CARDIOLOGY | | | | + + + + + + + + | Performing | Address | City/State/Zipcode | Phone Number | | Organization | | | | + + + + + | [facility] | [address] | [place], [place] | | | CARDIOLOGY | [address] | [address] | | + + + + + | [facility] | [address] | [place], [place] | | | CARDIOLOGY | [address] | [address] | | + + + + + 12 LEAD ECG (12/30/2007 4:19 PM PDT) [...] + | LINK TO | | | [facility] | | | [facility] | | | OF | | | (ECG | | | CARDIOLOGY | | | VIEWER) | | | | | + + + + + + + + | Specimen | + + | | + + + + + | Narrative | Performed At | + + + | Please click | [facility] | | on view image for the detailed interpretation from [employer] results. | CARDIOLOGY | | | | + + + + + + + + | Performing | Address | City/State/Zipcode | Phone Number | | Organization | | | | + + + + + | [facility] | [address] | [place], [place] | | | CARDIOLOGY | [address] | [phone] | | + + + + + | [facility] | [address] [facility] [address] | [place], [place] | | | CARDIOLOGY | [address] [facility] | [phone] | | + + + + + TSH (12/30/2007 4:02 PM PDT) + + + + + + | Component | Value | Ref Range | Performed | Pathologist | | | | | At | Signature | + + + + + + | TSH | Quantity not Sufficient | uIU/ml | | | | | for test. | | | | + + + + + + + + | Specimen | + + | Blood - Blood | + + + + + | Narrative | Performed At | + + + | * Corrected 01/01/08 17:40: TSH,SERUM, prev report: free1r | | | Reference range change effective 05/06/07 | | | [facility] | | | [place] [address] | | | [place] [address] Quantity Not Sufficient | | + + + + + + + + | Performing | Address | City/State/Zipcode | Phone Number | | Organization | | | | + + + + + | [facility] | [address] | [place] [address] | | | LABORATORY | | | | + + + + + PTH, SERUM (12/30/2007 4:02 PM PDT) + + + + + + | Component | Value | Ref Range | Performed | Pathologist | | | | | At | Signature | + + + + + + | PTH, SERUM | 36.0Comment: Test | 15.0 - 75.0 | | | | | performed by [facility] | pg/mL | | | | | [facility]. | | | | + + + + + + + + | Specimen | + + | Blood - Blood | + + + + + + + | Performing | Address | City/State/Zipcode | Phone Number | | Organization | | | | + + + + + | [facility] | [address] | [place] [address] | | | LABORATORY | | | | + + + + + COMPLETE METABOLIC SET (NA,K,CL,CO2,BUN,CREAT,GLUC,CA,AST,ALT,BILI TOTAL,ALK PHOS,ALB,PROT TOTAL) (12/30/2007 4:02 PM PDT) + +---------+ + + + | Component | Value | Ref Range | Performed | Pathologist | | | | | At | Signature | + +---------+ + + + | GLUCOSE, | 84 | 60 - 99 mg/dL | [facility] | | | PLASMA | | | DEPARTMENT | | | (LAB) | | | OF | | | | | | PATHOLOGY | | + +---------+ + + + | BUN, PLASMA | 15 | 6 - 20 mg/dL | [facility] [...] +---------+ + + + | TOTAL | 6.5 | 6.1 - 7.9 g/dL | [facility] | | | PROTEIN, | | | DEPARTMENT | | | PLASMA | | | OF | | | (LAB) | | | PATHOLOGY | | + +---------+ + + + | ALBUMIN, | 3.4 (L) | 3.5 - 4.7 g/dL | [facility] | | | PLASMA | | | DEPARTMENT | | | (LAB) | | | OF | | | | | | PATHOLOGY | | + +---------+ + + + | CALCIUM, | 9.4 [...] + + + | ALK PHOS | 60 | 53 - 141 U/L | [facility] [...] +---------+ + + + | POTASSIUM, | 4.3 | 3.5 - 5.1 | [facility] | | | PLASMA | | mmol/L | DEPARTMENT | | | (LAB) | | | OF | | | | | | PATHOLOGY | | + +---------+ + + + | CHLORIDE, | 110 (H) | 98 - 107 mmol/L | [...] + + + | ALT (SGPT) | 18 | 13 - 48 U/L | [facility] [...] | + + + + + | [facility] | [address] | [place] [address] | | | PATHOLOGY | [address] | | | + + + + + | [facility] | [address] | [place] [address] | | | PATHOLOGY | [address] [...] | anastrozole (aka ARIMIDEX) | Given | 01/02/20 | 1 mg | | | | tablet 1 mg 1 mg, oral, DAILY, | | 08 9:13 | | | | | First dose on Sun12/31/07 at | | AM PDT | | | | | 0900, Until Discontinued | | | | | | + +--------+ +------+------+------+ +-------+ +------+---+---+ | Given | 01/01/20 | 1 mg | | | | | 08 9:00 | | | | | | AM PDT | | | | +-------+ +------+---+---+ | Given | 12/31/19 | 1 mg | | | | | 08 9:45 | | | | | | AM PDT | | | | +-------+ +------+---+---+ +---+---+ | | | +---+---+ + +-------+ +-------+---+---+ | atenolol (aka TENORMIN) tablet | Given | 01/02/20 | 25 mg | | | | 25 mg 25 mg, oral, DAILY, First | | 08 9:13 | | | | | dose on Sun12/31/07 at 0900, | | AM PDT | | | | | Until Discontinued | | | | | | + +-------+ +-------+---+---+ +-------+ +-------+---+---+ | Given | 01/01/20 | 25 mg | | | | | 08 9:30 | | | | | | AM PDT | | | | +-------+ +-------+---+---+ | Given | 12/31/19 | 25 mg | | | | | 08 9:56 | | | | | | AM PDT | | | | +-------+ +-------+---+---+ +---+---+ | | | +---+---+ + +-------+ +---------+---+---+ | budesonide (aka PULMICORT) 0.25 | Given | 01/02/20 | 0.25 mg | | | | mg/2 mL nebulizer suspension | | 08 9:00 | | | | | 0.25 mg 0.25 mg, inhalation, | | AM PDT | | | | | TWICE DAILY, First dose on Sun | | | | | | | 12/30/07 at 2100, Until | | | | | | | Discontinued | | | | | | + +-------+ +---------+---+---+ +-------+ +---------+---+---+ | Given | 01/01/20 | 0.25 mg | | | | | 08 8:10 | | | | | | PM PDT | | | | +-------+ +---------+---+---+ | Given | 01/01/20 | 0.25 mg | | | | | 08 9:00 | | | | | | AM PDT | | | | +-------+ +---------+---+---+ +---+---+ | | | +---+---+ + +-------+ +--------+---+---+ | calcium citrate (aka CITRACAL) | Given | 01/02/20 | 200 mg | | | | tablet 200 mg 200 mg, oral, | | 08 9:13 | | | | | TWICE DAILY, First dose on Mon | | AM PDT | | | | | 12/30/07 at 2100, Until | | | | | | | Discontinued | | | | | | + +-------+ +--------+---+---+ +-------+ +--------+---+---+ | Given | 01/01/20 | 200 mg | | | | | 08 9:00 | | | | | | PM PDT | | | | +-------+ +--------+---+---+ | Given | 01/01/20 | 200 mg | | | | | 08 9:30 | | | | | | AM PDT | | | | +-------+ +--------+---+---+ +---+---+ | | | +---+---+ + +-------+ +--------+---+---+ | cyclosporin (aka RESTASIS) 0.05 | Given | 01/02/20 | 1 drop | | | | % ophthalmic drops 1 Drop 1 | | 08 9:13 | | | | | drop, Both Eyes, THREE TIMES | | AM PDT | | | | | DAILY, First dose on 12/30/07 | | | | | | | at 1600, Until Discontinued | | | | | | + +-------+ +--------+---+---+ +-------+ +--------+---+---+ | Given | 01/01/20 | 1 drop | | | | | 08 10:00 | | | | | | PM PDT | | | | +-------+ +--------+---+---+ | Given | 01/01/20 | 1 drop | | | | | 08 5:15 | | | | | | PM PDT | | | | +-------+ +--------+---+---+ +---+---+ | | | +---+---+ + +-------+ +--------+---+---+ | docusate sodium (aka COLACE) | Given | 01/02/20 | 100 mg | | | | capsule 100 mg 100 mg, oral, | | 08 9:13 | | | | | TWICE DAILY, First dose on Sun | | AM PDT | | | | | 01/01/08 at 0900, Until | | | | | | | Discontinued | | | | | | + +-------+ +--------+---+---+ +-------+ +--------+---+---+ | Given | 01/01/20 | 100 mg | | | | | 08 9:00 | | | | | | PM PDT | | | | +-------+ +--------+---+---+ | Given | 01/01/20 | 100 mg | | | | | 08 9:30 | | | | | | AM PDT | | | | +-------+ +--------+---+---+ +---+---+ | | | +---+---+ + +-------+ +---------+---+---+ | dofetilide ([place] GARCIA) | Given | 01/02/20 | 500 mcg | | | | capsule 500 mcg 500 mcg, oral, | | 08 7:00 | | | | | EVERY 12 HOURS, First dose on Mon | | AM PDT | | | | | 12/30/07 at 1900, Until | | | | | | | Discontinued | | | | | | + +-------+ +---------+---+---+ +-------+ +---------+---+---+ | Given | 01/01/20 | 500 mcg | | | | | 08 7:00 | | | | | | PM PDT | | | | +-------+ +---------+---+---+ | Given | 01/01/20 | 500 mcg | | | | | 08 7:00 | | | | | | AM PDT | | | | +-------+ +---------+---+---+ +---+---+ | | | +---+---+ + +-------+ +---------+---+---+ | ergocalciferol (aka DRISDOL) | Given | 12/31/19 | 50,000 | | | | capsule 50,000 Units 50,000 | | 08 9:56 | Units | | | | Units, oral, EVERY 7 DAYS, First | | AM PDT | | | | | dose on Sun12/31/07 at 0900, | | | | | | | Until Discontinued | | | | | | + +-------+ +---------+---+---+ +---+---+ | | | +---+---+ + +-------+ +-------+---+---+ | lansoprazole (aka PREVACID) | Given | 01/02/20 | 30 mg | | | | capsule 30 mg 30 mg, oral, | | 08 9:13 | | | | | DAILY, First dose on Sun12/31/07 | | AM PDT | | | | | at 0900, Until Discontinued | | | | | | + +-------+ +-------+---+---+ +-------+ +-------+---+---+ | Given | 01/01/20 | 30 mg | | | | | 08 9:30 | | | | | | AM PDT | | | | +-------+ +-------+---+---+ | Given | 12/31/19 | 30 mg | | | | | 08 9:56 | | | | | | AM PDT | | | | +-------+ +-------+---+---+ +---+---+ | | | +---+---+ + +-------+ +--------+---+---+ | ranitidine (aka ZANTAC) tablet | Given | 01/01/20 | 150 mg | | | | 150 mg 150 mg, oral, EVERY | | 08 9:00 | | | | | EVENING, First dose on Mon | | PM PDT | | | | | 12/30/07 at 2100, Until | | | | | | | Discontinued | | | | | | + +-------+ +--------+---+---+ +-------+ +--------+---+---+ | Given | 12/31/19 | 150 mg | | | | | 08 9:49 | | | | | | PM PDT | | | | +-------+ +--------+---+---+ | Given | 12/30/19 | 150 mg | | | | | 08 9:00 | | | | | | PM PDT | | | | +-------+ +--------+---+---+ +---+---+ | | | +---+---+ + +-------+ +--------+---+---+ | tiotropium (aka SPIRIVA) | Given | 01/02/20 | 18 mcg | | | | inhalation 18 mcg 18 mcg, | | 08 9:00 | | | | | inhalation, DAILY, First dose on | | AM PDT | | | | | 12/31/07 at 0900, Until | | | | | | | Discontinued | | | | | | + +-------+ +--------+---+---+ +-------+ +--------+---+---+ | Given | 01/01/20 | 18 mcg | | | | | 08 9:00 | | | | | | AM PDT | | | | +-------+ +--------+---+---+ | Given | 12/31/19 | 18 mcg | | | | | 08 8:40 | | | | | | AM PDT | | | | +-------+ +--------+---+---+ +---+---+ | | | +---+---+ + +-------+ +------+---+---+ | zolpidem (akester AMBDIANNE) tablet 5 | Given | 01/01/20 | 5 mg | | | | mg 5 mg, oral, AT BEDTIME | | 08 11:14 | | | | | NEEDED, Starting 12/30/07 at | | PM PDT | | | | | 1543, Until [place] 01/02/08 at 1807, | | | | | | | insomnia | | | | | | + +-------+ +------+---+---+ +-------+ +------+---+---+ | Given | 12/31/19 | 5 mg | | | | | 08 11:19 | | | | | | PM PDT | | | | +-------+ +------+---+---+ +---+---+ | | | +---+---+ documented in this encounter
--- OUTSIDE RECORDS SUMMARY | ~2020-05-04 | XMS | Encounter Summary ---
Demographics + + + | Address | [address] | | | [place] [address] | + + + | Home Phone [...] + | Gene Gee | ECON | [address] | | | | | [place], | | | | | [place] [address] | | + + + + + Care Team Providers + +------+ + | Care Rocket Test Fire Worker Name | Role | Phone | + +------+ + | Antony Ribera MD | PCP | | + +------+ + Encounter Details +--------+ + + + + | Date | Type | Department | Care Team | Description | +--------+ + + + + | 08/16/ | Clinical | [facility] | Nurse3, Hem [address] | | | 2007 | Support | Clinics at S | [address] | | | | Staff | [facility] [address] | [place] [address] | | | | | [facility] | Chr[facility], Hem [address] | | | | | [facility], | [address] [place], | | | | | [facility] [address] | [place] [address] | | | | | [place], [place] | | | | | | [address] | | | | | | [phone] | | | +--------+ + + + [...] + + + | Blood Pressure | 91/57 | 08/16/2007 1:46 PM | | | | | PST | | + + + + + | Pulse | 78 | 08/16/2007 1:46 PM | | | | | PST | | + + + + + | Temperature | 36.4 C (97.5 F) | 08/16/2007 1:46 PM | | | | | PST [...] + + + + | Weight | 68.4 kg (150 lb 12.7 | 08/16/2007 1:46 PM | | | | oz) | PST | | + + + + + | Height | - | - | | + + + + + | Body Mass Index | 24.34 | 08/15/2007 9:59 AM | | | | | PST | | + + + + + documented in this encounter Progress Notes Luly Brooks Rn - 08/16/2007 1:49 PM PSTPt here for Neulast injection. Pt without complai nts. Neulasta 6 mg injected SQ in LUQ of Abdomen. Pt tolerated injection well. Pt d/c'd to h ome. documented in this en counter Plan of Treatment Not on filedocumented as of this encounter Visit Diagnoses + + | Diagnosis | + + | Encounter for antineoplastic chemotherapy | + + | Carcinoma in situ of breast | + + documented in this encounter"
--- OUTSIDE RECORDS SUMMARY | ~2020-05-04 | XMS | Encounter Summary ---
Demographics + + + | Address | [address] | | | [place] [address] | + + + | Home Phone [...] + | Gene Sahil | ECON | [address] | | | | | [place], | | | | | [place] [address] | | + + + + + Care Team Providers + +------+ + | Care Veterans Adviser Name | Role | Phone | + +------+ + | Antony Ribera MD | PCP | | + +------+ + Encounter Details +--------+ + + + + | Date | Type | Department | Care Team | Description | +--------+ + + + + | 05/23/ | Office | UNKNOWN DEPARTMENT | Note, Outpatient | Progress Note | | 2006 | Visit-Trans | [address] | Clinic | | | | purvi | [address] | | | | | | [place], [place] | | | | | | [address] | | | +--------+ + + + [...] as of this encounter Progress Notes Interface, Bridge Design Engineer In - 07/06/2007 2:26 AM PST [id number] SAHIL Holman [id number] Clinic Date: 05/23/2007 Clinic: [facility] Adriana is a pleasant 61-year-old female with a history of right-sided breast cancer. She is status post right-sided mastectomy, sentinel node mapping, and completion axillary lymph node dissection for a T1c, N0 (i+), MX infiltrating ductal carcinoma. Tumor was 1.3 cm in greatest dimension. Two sentinel nodes were positive for isolated tumor cells only. Additional nodes found on completion axillary lymph node dissection were negative for tumor involvement. The tumor was estrogen receptor positive and HER-2 negative for gene amplification by FISH. Lumpectomy was done about 2-1/2 months ago and axillary lymph node dissection completed 1 month ago. Adriana already had a port placed in dissipation of possible chemotherapies. Adriana does have a number of comorbidities. She has dry eyes that is compatible with a Sjogren's syndrome. In addition, she has history of colon resection 5 years ago for a fistula. She has multiple hepatic cysts and had a surgery for resection. It was bleeding into those cysts. She has fibromyalgia. Adriana has cardiac arrhythmia with atrial fibrillation and paroxysmal supraventricular tachycardia. She received ablation therapy in the past without success. Currently, she is on antiarrhythmia medication. Adriana and I have been engaged in active discussion about the risk and benefit of chemotherapy over the past couple of weeks. We submitted her tumor for Oncotype testing. Both me and our nursing center tutor have spoken with Adriana and her , Deepak. Adriana decided that she would like to try chemotherapies. She is her today for her first cycle of chemotherapy with Taxotere and Cytoxan. I spent 60 minutes with them, more than half of which was devoted to direct patient consultation. Subjective: Adriana is feeling well. She is anxious, but she is ready to move on to receive chemotherapy. She has done a lot of reading and has consulted with her friends and family members. She likes to receive chemotherapy to have the peace of mind that everything has been done to prevent breast cancer recurrence. Review of Systems: Today, everything is negative. She was seen recently by her eye doctor that her dry eyes have been worse than before. She is on Restasis eye drops. She denies fever, chills, or night sweats. There is no cough or shortness of breath. There is no abdominal pain. She is moving her bowel regularly with the help of a lot of supplements. She had 2 bowel movements yesterday. There is no passage of bloody or tarry stool. Overall, she is feeling fine, and review of systems is not remarkable today. Adriana had an Oncotype testing done. Her risk of recurrence with endocrine therapy is about 6% over the next 10 years. Adriana, nonetheless, is still concerned about her tumor being more than 1 cm, and there are 2 lymph nodes involved with tiny amount of breast cancer cells. Her fibromyalgia-jaquez, she is at her baseline. Observation: Her weight is 65.1 kg, her height is 5 feet 5-1/2 inches, she is afebrile, and vital signs are stable. She is alert and oriented. She is not in acute distress. No oral lesion. No tenderness on percussion over her sinuses. Neck: Supple. No jugular vein engorgement. Chest: Symmetric expansion. Breathing sound is clear. Heart: Regular rhythm. No murmur or gallop. Abdomen: Soft and nontender. Multiple scars are noted. There is no increased rigidity or rebound tenderness. The bowel sound is active. Extremities: No cyanosis, clubbing, or edema. She has tightness in her right arm axilla. She has difficulty with the full extension of her right arm. There is, however, no swelling or tenderness in her right armpit. There is no knocking pain down her spinal column. No CV angle tenderness. Lymphatics: There is no supraclavicular, infraclavicular, axillary, or cervical lymphadenopathy palpable. Breasts exam is not done today. Neurologic: Intact. Laboratory Studies: A MUGA scan show her ejection fraction to be 62%. Her complete blood cell count and complete metabolic panels were normal today. Assessment and Plan: Adriana is a pleasant 61-year-old female with a history of right-sided early stage breast cancer. She is status post mastectomy and completion axillary lymph node dissection for T1c, receptor positive, HER-2 negative infiltrating ductal carcinoma. The grade is 1 to 2. Two axillary lymph nodes were found to be involved with isolated tumor cells only. Adriana has a number of comorbidities that she has cardiac arrhythmias; they are medically controlled. History of multiple abdominal surgeries with bouts of small bowel obstruction every year, Sjogren's syndrome, and fibromyalgia. I have discussed on multiple occasions over the past couple of weeks via e-mails and phone call with Adriana regarding the risk and benefit of chemotherapies. We submitted Adriana's tumor block for Oncotype testing. The result came out low for risk of recurrence. The estimated risk is about 6% over 10 years with tamoxifen treatment. Adriana and her , nonetheless, still have concern about the risk of recurrence of her tumor. They were concerned about the 2 lymph nodes mainly involved with the small amount of cancer cells. In addition, they were worried about the tumor being greater than 1 cm. We discussed that Oncotype testing can help us estimate the risk of recurrence, but her , Deepak, however, asked whether this testing has been around for a long time and has its efficacy been fully validated. I explained to him that the testing was based on study that was done on about 680 patients from clinical trials done in the past. It has been independently validated in subsequent studies. Nonetheless, this is relatively a new test. Regarding the significance of involvement of isolated tumor cells, I think this is still a bit controversial. Her risk of recurrence is likely somewhat increased because of the presence of these isolated tumor cells in the lymph nodes. Again, we do not have a definitive answer on this question. We discussed that Oncotype testing is typically applied to patients with lymph node-negative disease. There is one study that was reported in [place] [employer] Meeting earlier this summer that shows that patients with lymph node-positive disease Oncotype testing could now have prognostic value as well. Patients with low recurrence score is found to have good prognosis, although the risk of recurrence may be 60% or 70% higher than patients without lymph node metastases. All things considered, I think her benefit of chemotherapy is fairly modest. It is estimated to be about 4% gain in disease-free survival over 10 years. We will have to, however, balance that against the potential toxicity with chemotherapies. Given Adriana's cardiac condition, I decided to offer her Taxotere and Cytoxan every 3 weeks with 4 cycles each. This is, in particular, to avoid the anthracycline given Adriana's cardiac condition. We discussed that Taxotere and Cytoxan chemotherapy may be associated with development of fever in 5% of the patients. This was shown in the clinical trials that demonstrated the efficacy of this regimen for adjuvant breast cancer therapies. I will, however, include Neulasta for Adriana. Neulasta is suspected to decrease the duration and severity of neutropenia. It is very likely that this can translate into much lower incidence of neutropenic fever rate. My estimate would be about 2%. We also discussed that in rare situation, mortality was observed for patients who received adjuvant systemic chemotherapies. One retrospective analysis from several large clinical trials for [facility] show that for patients between the age of 56 and 65, mortality rate associated with chemotherapy is in the order of about 0.4%. The above has been very carefully explained and discussed with Adriana and her , Deepak. We discussed that the toxicity of Taxotere and Cytoxan may be associated with reversible alopecia, nausea and vomiting, bone marrow suppression leading to fever and anemia, mucositis, diarrhea, neuropathy, development of fluid retention, and musculoskeletal discomfort. Given that Adriana has a strong desire to receive chemotherapy, I explained we can make a case for her to get chemotherapy. Given that the benefit of chemotherapy is expected to be modest, we need to pay extra attention to avoiding side effects that may easily negate the benefit of chemotherapies. I have discussed the management of her cardiac condition with Monique Middleton at Cardiology. I also discussed the possible adverse drug interaction between her cardiac medication with our chemotherapy regimen with Dr. Alex, a pharmacist. We are going to avoid Emend as the interaction between Emend and her antiarrhythmia medication is none known. Adriana is going to get Zofran x1 before her chemotherapies. We will use Ativan and Compazine on an as needed basis for her nausea control. We would like to decrease the use of Zofran as much as we can as this can exacerbate constipation which can be a problem for Adriana. Adriana has episode of small bowel obstruction from adhesion in the past. We advised her to take a stool softener to ensure that she has bowel movement everyday. We discussed the importance of neutropenic fever and hydration. For her steroid, Adriana is going to take 4 mg of dexamethasone twice a day on the day before chemotherapy and also the day after chemotherapy. On the date of chemotherapy, she would get 8 mg of dexamethasone with her chemotherapy, and she would take another 4 mg at night. We will carefully monitor her weight gain. We would also advise her to stay away from her supplements and high-dose vitamins for a few days around her chemotherapy to avoid interaction with her chemotherapies. She will return tomorrow for her Neulasta shot. We will see her before each treatment and carefully evaluate her toxicities. Regarding the tightness in her right arm and a scarring tissue that I palpated in her right axilla, we will send Adriana to meet with Dr. Heart after her treatment today. Medication List: 1. Protonix 40 mg a day. 2. Atenolol 25 mg a day. 3. Ethmozine 200 mg 3 times a day. 4. Crestor 5 mg a day. 5. Pulmicort 180 mcg 3 times a day. 6. Spiriva 1 capsule a day. 7. Flonase. 8. Stool softener. 9. Restasis eye drops. Tricia Velazquez M.D., Ph.D. / [id number] / [id number] / [id number] / cc: Henri Heart M.D. Surgical Oncology Korey Hurd Electronically signed by Tricia Velaqzuez 07-05-2007 09:02:11 AM documented in this encounter Plan of Treatment Not on filedocumented as of this encounter Visit Diagnoses Not on filedocumented in this encounter"
--- OUTSIDE RECORDS SUMMARY | ~2020-05-04 | XMS | Encounter Summary ---
Demographics + + + | Address | [address] | | | [place] [address] | + + + | Home Phone [...] + | Gene Gee | ECON | [address] | | | | | [place], | | | | | [place] [address] | | + + + + + Care Team Providers + +------+ + | Care Medical Referral Coordinator Name | Role | Phone | + +------+ + | Antony Ribera MD | PCP | | + +------+ + Reason for Visit + +--------+ + | Reason | Onset | Comments | | | Date | | + +--------+ + | Refill Request | 11/13/ | | | | 2011 | | + +--------+ + Encounter Details +--------+--------+ + + + | Date | Type | Department | Care Team | Description | +--------+--------+ + + + | 11/13/ | Refill | Hematology/Medical | Stevan Velazquez, | Refill Request | | 2011 | | Oncology at [facility] | MD [address] | | | | | [address] | [facility] [place] | | | | | Mailcode: [facility] | [address] | | | | | [facility] | [phone] | | | | | and Healing, | | | | | | [facility] | | | | | | Floor [facility] [place] | | | | | | [address] | | | | | | [phone] | | | +--------+--------+ + + + [...] Telephone Encounter - Rosalinda Palacios RN - 11/14/2011 12:50 PM PDTReceived refill request for anastrozole from [facility]. Routing to provider for approval.Electronically sig elenita by Rosalinda Palacios RN at 11/14/2011 12:51 PM PDTdocumented in this encounter Plan of Treatment Not on filedocumented as of this encounter Visit Diagnoses Not on filedocumented in this encounter"
--- OUTSIDE RECORDS SUMMARY | ~2020-05-04 | XMS | Encounter Summary ---
Demographics + + + | Address | [address] | | | [place] [address] | + + + | Home Phone [...] + | Gene Gee | ECON | [address] | | | | | [place], | | | | | [place] [address] | | + + + + + Care Team Providers + +------+ + | Care Medication Specialist Name | Role | Phone | + +------+ + | Alec Hill MD | PCP | | + +------+ + Encounter Details +--------+ + + + + | Date | Type | Department | Care Team | Description | +--------+ + + + + | 11/25/ | Telephone-S | Pulmonary & | Juana Kilgore MD | | | 2020 | chemaria fernanda | Critical Care | [address] | | | | | Medicine at | [facility], | | | | | Physicians [place] | [place] [address] | | | | | [address] | [phone] | | | | | Loop Physician's | | | | | | [place], 3rd Floor | | | | | | [place], [place] | | | | | | [address] | | | | | | [phone] | | | +--------+ + + + [...] + + documented as of this encounter Patient Instructions Patient Instructions Juana Kilgore MD - 11/26/2019 9:50 AM PDTFormatting of this note shane ht be different from the original. What is my diagnosis/What am I being treated for? ICD-10-CM 1. Moderate persistent asthma without complication J45.40 What is my plan for today s visit (what tests I have to do when I leave, how am I suppose d to use my medications)? - for now, use pulmicort 2 puffs twice daily and spiriva one puff daily - if needing levalbuterol twice daily, go up to 3 puffs twice daily of pulmicort - once allergy season is over, drop to 1 puff BID pulmicort and continue spiriva before sto pping both - if you need to start spiriva up again, be sure to use pulmicort as well (should not use j ust spiriva by itself) What is the name of the doctor I saw today? -Juana Kilgore MD How do I get in touch with the doctor(s) in case I have a question? -Call [phone] We recommend signing up for [employer] our secure online messaging system that will allow you to communicate with your provider electronically. Directions for signing up are included in this packet. My Chart is an excellent way to ask questions and get advice about non-urgent problems. For more pressing concerns, call our office. In the event of an medical emergency you shodiogo quiñones call 911 or present to the nearest Emergency Room. documented in this encounter Progress Notes Juana Kilgore MD - 11/26/2019 9:50 AM PDT Patient agrees to a telephone encounter for today's visit. They understand they may be resp onsible for the balance after insurance processes the claim. The visit took place via telephone with the provider located at the distant site of [facility]. T he patient stated they were located at the originating site of home and were in the state of [place] at the time of the telephone visit. The names of all persons participating in the aysha visit and their roles are: Juana Kilgore MD (MD) and Adriana Flynn (patient). Time spent on the call: 32 min. The patients encounter was accomplished via a telephone call today due to COVID-19 precauti onary measures to limit the patient's unnecessary exposure. Chief Complaint / ID: 74 year old woman with asthma here for routine follow up Interval History: Adriana Flynn returns to pulmonary clinic for management of longstanding asthma. The patient was last seen by me in 11/2018. At that time, she was doing relatively we ll. She says That she has continued to do well over the last year. Her regimen is: - pulmicort-2 puffs BID, recently restarted after not using it at all for most of the win ter - tiotropium 2.5 mcg 1 inhalation daily (used off and on through winter, more than pulmicor t) - levalbuterol prn- as needed, nebulizer, does not use inhaler, just started nebulizer - ipratropium prn- again, as needed - fluticasone nasal spray BID, ipratropium nasal spray daily In the past she had been using prednisone if needed for exacerbations given challenges of g etting timely care where she lives - but none in the last year. Has it on hand in case but h asn't needed it. ACT 1. 5 - not at all 2. 5 - dyspnea once a week or less 3. 5 - no nighttime awakenings 4. 2 - rescue once a day (probably an overestimate of impairment) 5. 4 - well controlled Total = 21 Today, she says that recently she has been coughing more and feels her asthma is worse. Thi s is typical for her in the spring due to allergies. Using levalbuterol and ipratropium bing y, asks whether she should use more. A little bit more dyspneic going up stairs. Heart disease is very active - has valvular heart failure and significant arrhythmia hx. Cedillo d hydralazine added recently for afterload reduction but did not tolerate due to hypotension . She is diligent about weighing herself daily. Needs new nebulizer tubing. Says our office should be getting something soon about this. Past medical, surgical and social history were reviewed and are unchanged except as noted red aburto. [facility] Past Medical History Diagnosis Date Fibromyalgia 1995 Mitral valve prolapse 1989 GERD (gastroesophageal reflux disease) 1995 TMJ (dislocation of temporomandibular joint) Skin cancer back Small bowel obstruction (HCC) 07/20,10/19,02/19 Bursitis 2005 Plantar fascial fibromatosis 2006 plantar fascial tear Breast cancer ([facility]) 02/2007 s/p chemo with taxotere/cytoxan Shingles Pulmonary embolus ([facility]) 09/2008 Asthma Medications Current Outpatient Medications Medication Sig apixaban (ELIQUIS) 5 mg oral tablet Take 5 mg by mouth two times daily. bisoprolol 5 mg oral tablet Take 10 mg by mouth once daily. budesonide (PULMICORT FLEXHALER) 180 mcg/actuation inhalation aerosol powdr breath acti vated Inhale 2 puffs by mouth two times daily. Indications: Controller Medication for Asthma calcium citrate-vitamin D (CITRACAL + D) 315-200 mg-unit Oral Tablet 2 tabs in evening and liquid calcium citrate in AM carboxymethylcellulose 0.5 % ophthalmic dropperette Instill 1 drop into both eyes as ne eded. cholecalciferol (Vitamin D3) (VITAMIN D3) 1,000 unit oral capsule Take 3,000 Units by m outh once daily. dofetilide 250 mcg oral capsule Take 250 mcg by mouth two times daily. Do NOT open caps ule. Swallow whole. ezetimibe (ZETIA) 10 mg Oral Tablet Take 10 mg by mouth once daily. fluticasone propionate (FLONASE) 50 mcg/actuation nasal spray,suspension Instill 1 spra y into each nostril two times daily. ipratropium 0.02 % inhalation solution Inhale 2.5 mL(ONE AMPULE) via nebulizer every si x hours as needed (Shortness of breath). ipratropium 0.03 % nasal spray,non-aerosol Instill 2 sprays into each nostril three roxie es daily. lactobac [facility] #[id number]-[id number] 300-250 million cell-mg oral capsule Take by mouth once daily. levalbuterol 1.25 mg/3 mL inhalation solution for nebulization Inhale 3 mL every six ho urs as needed (shortness of breath). Indications: Asthma Attack levalbuterol 45 mcg/actuation inhalation HFA aerosol inhaler Inhale 1-2 puffs by mouth every six hours as needed. Indications: bronchospasm prevention LORAZEPAM 1 mg Oral tablet Take 0.5 tablets by mouth once daily at bedtime as needed. losartan 100 mg oral tablet Take 100 mg by mouth once daily. magnesium oxide 250 mg oral tablet Take by mouth once daily. ofloxacin 0.3 % ophthalmic drops Instill 1 drop into both eyes as needed. polyethylene glycol (MIRALAX) 17 gram/dose oral powder Mix 17 g in liquid and drink onc e daily. potassium chloride (KLOR-CON 10) 10 mEq oral tablet extended release Take 20 mEq by candido th once daily. rabeprazole (ACIPHEX) 20 mg Oral Tablet, Delayed Release (E.C.) Take 20 mg by mouth wyatt ry twelve hours. SPIRIVA RESPIMAT 2.5 mcg/actuation inhalation mist Inhale 1 puff once daily. Vitamin A-Vitamin C-Vit E-Min (ANTIOXIDANT FORMULA) Oral Capsule take 1 capsule by oral route once daily with food No current facility-administered medications for this visit. Taking cetirizine as well. ROS Constitutional: no fevers, night sweats, or weight changes HEENT: no voice changes Cardiac: see above Pulm: see above Skin: no unusual rashes MSK: has some LE join swelling she watches and attributes to CHF Physical Exam There were no vitals taken for this visit. Speaking easily in long sentences Data Reviewed Today PFTs PFT's Spirometry FVC Pre FVC Pre % FEV1 PRE FEV1 Pre % FEV1/FVC Pre FEV1/FVC PRE (% REF) 10/24/17 1035 2.37 79 1.76 78 74 99 10/02/16 1057 2.32 76 1.63 71 70 93 10/22/12 1208 2.69 82 1.75 70 65 My interpretation of the most recent set of pulmonary function testing is mildly reduced ai rflow without anna obstruction. IMPRESSION Adriana Flynn is a 74 year old woman with asthma that is moderate persistent (based on bing y SKIP use). Fortunately she has had few exacerbations in the recent past and was able to st ep down off nearly all her therapy in the winter. Today we largely discussed how to step down her meds going forward, and how to distinguish between asthma symptoms and congestive heart failure symptoms, given that her cardiac issues have been particularly active in the last several years. She is well educated about her he art failure and tracks her weight daily. Therefore, for now I trust her to step her inhaler s up or down based on symptoms such as wheezing. RECOMMENDATIONS & PLAN 1. Repeat pulmonary function testing with annual visit next year 2. Current regimen: - pulmicort 2 puffs BID - spiriva daily - Levalbuterol, ipratropium, nasal sprays as needed - important note, due to significant atrial arrhythmia issues, she is not on a LABA and I d on't plan to add that for her going forward 3. When she is past allergy season and is ready to stepdown therapy: - drop to 1 puff BID pulmicort and keep using daily spiriva first - then stop spiriva but continue pulmicort 1 puff BID before stopping pulmicort - if resuming spiriva, resume pulmicort 1 puff BID at that time 4. If needing to increase SKIP (levalbuterol) use, she should go up to 3 puffs BID of pulmi liborio She has enough refills so asks me not to refill except for ipratropium nebs RTC 1 year in person Juana Kilgore MD PULMONARY & CRITICAL CARE MEDICINE AT [address] [place], [address] [place] [address] documented in this enco unter Plan of Treatment + + +--------+ + + | Name | Type | Priori | Associated Diagnoses | Order Schedule | | | | ty | | | + + +--------+ + + | SPIROMETRY BEFORE / | Pulmonary | Routin | Moderate | Expected: | | AFTER BRONCHODIL, | Function | e | persistent asthma | 11/26/2020, Expires: | | PULM FUNCTION LAB | | | without complication | 05/28/2021 | + + +--------+ + + documented as of this encounter Visit Diagnoses + + | Diagnosis | + + | Moderate persistent asthma without complication - Primary Unspecified asthma | + + documented in this encounter"
--- OUTSIDE RECORDS SUMMARY | ~2020-05-04 | XMS | Encounter Summary ---
Demographics + + + | Address | [address] | | | [place] [address] | + + + | Home Phone [...] + | Gene Gee | ECON | [address] | | | | | [place], | | | | | [place] [address] | | + + + + + Care Team Providers + +------+ + | Care Camp Tender Name | Role | Phone | + +------+ + | Antony Ribera MD | PCP | | + +------+ + Encounter Details +--------+ + + + + | Date | Type | Department | Care Team | Description | +--------+ + + + + | 06/03/ | MyChart | [facility] | Tapan Horowitz MD | labs | | 2015 | Encounter | [facility] | [address] | | | | | Center at Physicians | [address] [place], | | | | | [address] | [place] [address] | | | | | [address] | [phone] | | | | | Physician's | | | | | | [place], 1st floor | | | | | | [place], [place] | | | | | | [address] | | | | | | [phone] | | | +--------+ + + + [...]
--- OUTSIDE RECORDS SUMMARY | ~2020-05-04 | XMS | Encounter Summary ---
Demographics + + + | Address | [address] | | | [place] [address] | + + + | Home Phone [...] + | Gene Gee | ECON | [address] | | | | | [place], | | | | | [place] [address] | | + + + + + Care Team Providers + +------+ + | Care Electrical Transmission Engineer Name | Role | Phone | + +------+ + | Antony Ribera MD | PCP | | + +------+ + Encounter Details +--------+------+ + + + | Date | Type | Department | Care Team | Description | +--------+------+ + + + | 04/06/ | Lab | Laboratory at [facility] | | Other Pulmonary | | 2008 | | [address] | | Embolism and | | | | [place] [facility] | | Infarction | | | | and Healing, | | | | | | [address] | | | | | | [place], [place] | | | | | | [address] | | | | | | [phone] | | | +--------+------+ + + + [...] + + | INR | Routin | 04/06/2009 | Other Pulmonary | Results for this | | | e | 1:52 PM | Embolism and | procedure are in the | | | | PDT | Infarction | results section. | + +--------+ + + + | FIBRINOGEN | Routin | 04/06/2009 | Other Pulmonary | Results for this | | | e | 1:52 PM | Embolism and | procedure are in the | | | | PDT | Infarction | results section. | + +--------+ + + + | D-DIMER, (PE OR DIC) | Routin | 04/06/2009 | Other Pulmonary | Results for this | | | e | 1:52 PM | Embolism and | procedure are in the | | | | PDT | Infarction | results section. | + +--------+ + + + documented in this encounter Results INR (04/06/2009 1:52 PM PDT) + + + + + + | Component | Value | Ref Range | Performed | Pathologist | | | | | At | Signature | + + + + + + | INR | 2.87 (H)Comment: | 0.90 - 1.20 INR | [...] | + + + + + | [facility] | [address] | [place] [address] | | | PATHOLOGY | [address] | | | + + + + + | [facility] DEPARTMENT | [address] | [place] [address] | | | PATHOLOGY | [address] | | | + + + + + FIBRINOGEN (04/06/2009 1:52 PM PDT) + +-------+ + + + | Component | Value | Ref Range | Performed | Pathologist | | | | | At | Signature | + +-------+ + + + | FIBRINOGEN | 372 | 200 - 450 mg/dL | [facility] | | | LEVEL | | | DEPARTMENT | | | [...] [facility] | [address] | [place] [address] | | | PATHOLOGY | [address] | | | + + + + + | [facility] | [address] | [place] [address] | | | PATHOLOGY | [address] | | | + + + + + D-DIMER, (PE OR DIC) (04/06/2009 1:52 PM PDT) + + + + + + | Component | Value | Ref Range | Performed | Pathologist | | | | | At | Signature | + + + + + + | D-DIMER (PE | 0.24Comment: | <0.50 ug/mLFEU | [facility] | | | OR DIC) | D-Dimer Interpretation: | | DEPARTMENT | | | | <0.50 PE | | OF | | | | very unlikely | | PATHOLOGY | | | | 0.50-4.0 Seen in [...] | [facility] | [address] [facility] | [place] [address] | | | PATHOLOGY | [address] | | | + + + + + | [facility] | [address] [place] [address] | [place] [address] | | | PATHOLOGY | [address] | | | + + + + + documented in this encounter Visit Diagnoses + + | Diagnosis | + + | Other pulmonary embolism and infarction | + + documented in this encounter"
--- OUTSIDE RECORDS SUMMARY | ~2020-05-04 | XMS | Encounter Summary ---
Demographics + + + | Address | [address] | | | [place] [address] | + + + | Home Phone [...] + | Gene Gee | ECON | [address] | | | | | [place], | | | | | [place] [address] | | + + + + + Care Team Providers + +------+ + | Care Splicer Apprentice Name | Role | Phone | + +------+ + | Antony Ribera MD | PCP | | + +------+ + Encounter Details +--------+ + + + + | Date | Type | Department | Care Team | Description | +--------+ + + + + | 03/14/ | Results | Registration [address] | Other, Faculty | | | 2006 | Only | [address] | [phone] | | | | | Rd Mailcode: [id number] | | | | | | [place], [place] | | | | | | [address] | | | | | | [phone] | | | +--------+ + + + [...] + + | TYPE AND SCREEN | Routin | 03/14/2007 | | Results for this | | | e | 2:24 PM | | procedure are in the | | | | PDT | | results section. | + +--------+ + + + documented in this encounter Results TYPE AND SCREEN (03/14/2007 2:24 PM PDT) + + + + + + | Component | Value | Ref Range | Performed | Pathologist | | | | | At | Signature | + + + + + + | ABO GROUP | B | | [facility] | | | | | | DEPARTMENT | | | | | | OF | | | | | | PATHOLOGY | | + + + + + + | RH TYPE | Positive | | [facility] | | | | | | DEPARTMENT | | | | | | OF | | | | | | PATHOLOGY | | + + + + + + | Antibody | Negative | | [facility] | | | Screen | | | DEPARTMENT | | | | | | OF | | | | | | PATHOLOGY | | + + + + + + + + | Specimen | + + | | + + + + + | Narrative | Performed At | + + + | Ordered by an unspecified provider. | [facility] | | | DEPARTMENT OF | | | PATHOLOGY | + + + + + + + + | Performing | Address | City/State/Zipcode | Phone Number | | Organization | | | | + + + + + | [facility] | [facility] | [place] [address] | | | PATHOLOGY | [address] | | | + + + + + | [facility] OF | [facility] | [place] [address] | | | PATHOLOGY | [address] | | | + + + + + documented in this encounter Visit Diagnoses Not on filedocumented in this encounter"
--- OUTSIDE RECORDS SUMMARY | ~2020-05-04 | XMS | Encounter Summary ---
Demographics + + + | Address | [address] | | | [place] [address] | + + + | Home Phone [...] + | Gene Gee | ECON | [address] | | | | | [place], | | | | | [place] [address] | | + + + + + Care Team Providers + +------+ + | Care Airborne Operations Manager Name | Role | Phone | + +------+ + | Alec Hill MD | PCP | | + +------+ + Encounter Details +--------+ + + + + | Date | Type | Department | Care Team | Description | +--------+ + + + + | 03/15/ | MyChart | [facility] | Tapan Horowitz MD | RE: DEXA scan | | 2019 | Encounter | [facility] | [address] | results from | | | | Center at [facility] | [address], | 02/04/2020. [address] | | | | [address] | [place] [address] | [facility]. | | | | [address] | [phone] | [place], [place] | | | | Physician's Pavilion | | | | | | Physician's | | | | | | Pavilion [place], | | | | | | [place] [address] | | | | | | [phone] | | | +--------+ + + + [...]
--- OUTSIDE RECORDS SUMMARY | ~2020-05-04 | XMS | Encounter Summary ---
Demographics + + + | Address | [address] | | | [place] [address] | + + + | Home Phone [...] + | Gene Gee | ECON | [address] | | | | | [place], | | | | | [place] [address] | | + + + + + Care Team Providers + +------+ + | Care Service Establishment Attendant Name | Role | Phone | + +------+ + | Antony Ribera MD | PCP | | + +------+ + Reason for Visit + +--------+ + | Reason | Onset | Comments | | | Date | | + +--------+ + | Refill Request | 12/03/ | | | | 2007 | | + +--------+ + Encounter Details +--------+--------+ + + + | Date | Type | Department | Care Team | Description | +--------+--------+ + + + | 12/03/ | Refill | Cardiology General | Monique Middleton, | Refill Request | | 2007 | | at [facility] [address] | [place] | | | | | [facility] | | | | | | Health and Healing, | | | | | | [facility] | | | | | | Floor [place], [place] | | | | | | [address] | | | | | | [phone] | | | +--------+--------+ + + + [...] Encounter - Monique Middleton Np - 12/04/2007 10:39 AM PDTCalled and discussed swit ch to mexiletine for moricizine(due to no longer being manufactured). She will stop moriciz ine for a day and then start on mexiletine 150mg three times daily. Side effects discussed with her. documented in this encounter Plan of Treatment Not on filedocumented as of this encounter Visit Diagnoses Not on filedocumented in this encounter"
--- OUTSIDE RECORDS SUMMARY | ~2020-05-04 | XMS | Encounter Summary ---
Demographics + + + | Address | [address] | | | [place] [address] | + + + | Home Phone [...] + | Gene Gee | ECON | [address] | | | | | [place], | | | | | [place] [address] | | + + + + + Care Team Providers + +------+ + | Care Pressed Or Blown Glass Worker Name | Role | Phone | + +------+ + | Alec Hill MD | PCP | | + +------+ + Encounter Details +--------+ + + + + | Date | Type | Department | Care Team | Description | +--------+ + + + + | 10/29/ | Ancillary | Surgical Oncology | [facility], | | | 2018 | Orders | at [facility] [address] | MD [address] | | | | | Ave Center for | [place], [place] | | | | | Health and Healing, | [address] | | | | | [facility] | [phone] | | | | | [place], [place] | | | | | | [address] | | | | | | [phone] | | | +--------+ + + + [...] LEFT | | | w/CAD performed at [facility]. October 10, | | | 2015, [place] CRISTAL DIAGNOSTIC LEFT w/CAD performed at [facility] | | | [facility]. The breast tissue is heterogeneously dense. | | | This may lower the sensitivity of mammography. Status post right | | | breast mastectomy and stable left breast post reduction changes. No | | | suspicious calcifications, masses, or architectural distortion | | | present. The images were obtained using full field digital | | | mammography on the dedicated [facility] with R2 CAD. Performed | | | at [facility]. 3D tomosynthesis | | | mammography [...] left breast.Prior study comparison: October 23, 2016, [place] CRISTAL DIAGNOSTIC LEFT | | w/CAD performed at [facility]. September, [place] CRISTAL | | DIAGNOSTIC LEFT w/CAD performed at [facility].The breast tissue | | is heterogeneously dense. This may lower the sensitivity of mammography. Status post | | right breast mastectomy and stable left breast post reduction changes. No suspicious | | calcifications, masses, or architectural distortion present.The images were obtained | | using full field digital mammography on the dedicated [facility] with R2 CAD. | | Performed at [facility]. 3D tomosynthesis mammography | | wasperformed [...] field digital mammography on | |the dedicated [facility] with R2 CAD. Performed at [place] | |[facility] [place]. 3D tomosynthesis mammography was | |performed as [...]
--- OUTSIDE RECORDS SUMMARY | ~2020-05-04 | XMS | Encounter Summary ---
Demographics + + + | Address | [address] | | | [place] [address] | + + + | Home Phone [...] + | Gene Gee | ECON | [address] | | | | | [place], | | | | | [place] [address] | | + + + + + Care Team Providers + +------+ + | Care Glue Machine Operator Name | Role | Phone [...] | | Cardiology | | Bacilio, | Kane | | | | | | Antony | Monique Quintana NP | | | | | | MD Saman | [address] | | | | | | [place] | [address] | | | | | | INTERNAL | [place], [place] | | | | | | MEDICINE | [address] | | | | | | [address] | | | | | | | [address] | | | | | | | [address] | | | | | | | [place], | | | | | | | [place] [address] | | | | | | | Phone: | | | | | | | [phone] | | | | | | | Fax: | | | | | | | [phone] | | +--------+--------+ + + + + Encounter Details +--------+---------+ + + + | Date | Type | Department | Care Team | Description | +--------+---------+ + + + | 08/13/ | Office | Cardiology | Monique Middleton, | Atrial tachycardia | | 2008 | Visit | Arrhythmia at [facility] | SIGNAL PROCESSING ENGINEER | [phone] (Primary Dx); | | | | [address] | | Dyspnea | | | | [facility] | | | | | | and Healing, | | | | | | Building | | | | | | Floor [place], [place] | | | | | | [address] | | | | | | [phone] | | | +--------+---------+ + + + [...] | Blood Pressure | 126/78 | 08/13/2008 2:47 PM | | | | | PST | | + + + + + | Pulse | 72 | 08/13/2008 2:47 PM | | | | | PST | | + + + + + | Temperature | - | - | | + + + + + | Respiratory Rate | - | - | | + + + + + | Oxygen Saturation | 98% | 08/13/2008 2:47 PM | | | | | PST | | + + + + + | Inhaled Oxygen | - | - | | | Concentration | | | | + + + + + | Weight | 65.2 kg (143 lb 12.8 | 08/13/2008 2:47 PM | | | | oz) | PST | | + + + + + | Height | 165.1 cm (5' 5") | 08/13/2008 2:47 PM | | | | | PST | | + + + + + | Body Mass Index | 23.93 | 08/13/2008 2:47 PM | | | | | PST | | + + + + + documented in this encounter Progress Notes Kane Schwarz, Monique - 08/13/2008 5:58 PM PST Adriana Flynn is 62 yrs old, a patient of Dr. Ribera, who we have had the chance to see since because of atrial tachycardias. She has had an ablation attempt in December of 2004 and a r epeat attempt in September of 2005. Subsequently she was placed on moricizine and did very well without any recurrent arrhythmias. This drug was taken off the market the summer a nd she was hospitalized iin December of 2007 for initiation of dofetilide. With the dofetilide she had some palpitations to begin with but she has had no further spells since time . Since March Adriana has noticed increasing shortness of breath and a feeling of her heart pounding hard. It started to interfer with her life--she would take five steps and have to stop because she was "huffing and puffing". She also noticed her heart beating harder, not faster. These spells would last 15 to 20 minutes, she would rest and it would go away. It may or may not return when she went back to her activity. They were occurring every other day to daily. Through the last few months the spells have become more frequent and are last ing longer--she sits to rest and the symptoms do not resolve. At [facility] she had a spell when she was sick to her stomach that she felt a very hard heartbeat associated with mild midster nal burning. She called last week to discuss her symptoms because they were occurring daily with any activity, even getting out of bed. She has been to see Dr. Ribera to look for any a cute changes and has recently seen her petroleum production engineer in [place] who ruled out any lung p roblems. Past Medical History Diagnosis Date Sjogrens Syndrome 1995 Fibromyalgia 1995 Mitral Valve Prolapse 1989 GERD (Gastroesophageal Reflux Disease) 1995 Asthma 1999 TMJ (Dislocation of Temporomandibular Joint) Fibrocystic Disease of Breast 1978 Diverticul Disease Small and Large Intestine, no Perforati or Abscess Skin Cancer back Small Bowel Obstruction 07/20,10/19,02/19 Atrial Tachycardia 07/20 Bursitis 2005 Plantar Fascial Fibromatosis 2006 plantar fascial tear Osteopenia 12/30/2007 DXA 09/05/07: L -2.1 H -1.1 Breast Cancer 02/2007 s/p chemo with taxotere/cytoxan Past Surgical [...] [facility] Heart ablation 12/16/2004,09/21/2005 Dr. Fuentes, [facility] Allergies Allergen Reactions Sulfa (Sulfonamides) Swelling-Facial Ciprofloxacin Hives and Rash Triamterene-hydrochlorothiazid BREAST LUMPS Celebrex (Celecoxib) Diarrhea and Cough Albuterol Tachycardia Flecainide Acetate Rash Propafenone unknown Tape Adherent Rash Cardiovascular Risk Fm Hx--positive for CAD--mother had CABG/stents in her 70's, 2 maternal uncles from [place] at 52&54, 3 maternal aunts from [place] at 60,61 and 62. DM--neg Lipids--elevated chol in past, was on rosuvastatin until breast CA treatment Tobacco--neg HTN--recent elevation--148/93 but usually low Current outpatient prescriptions Medication Sig anastrozole (ARIMIDEX) 1 mg Oral Tablet take 1 tablet (1 mg) by oral route once daily calcium citrate-vitamin D (CITRACAL + D) 315-200 mg-unit Oral Tablet 2 tabs twice a day Docusate Sodium (STOOL SOFTENER) 100 mg Oral Capsule take 1 capsule (100 mg) by oral ro ely shoshone once daily at bedtime as needed dofetilide 500 mcg Oral Capsule Take 1 Cap by mouth two times daily. Fish Oil-DHA-EPA (FISH OIL) 1,200-144-216 mg Oral Capsule one daily Glucosamine 1,000 mg Oral Tablet one daily ibandronate (BONIVA) 150 mg Oral Tablet once monthly MULTIVITAMIN OR one daily PROTONIX 40 mg Oral Tablet, Delayed Release (E.C.) take 1 tablet (40mg) by oral route o nce daily, can take additional tablet in the night if needed RESTASIS OPHT Both eyes twice daily SPIRIVA WITH HANDIHALER 18 MCG & INHALATION CAPS inhale the contents of one capsule (18 mcg) by inhalation route once daily Vitamin A-Vitamin C-Vit E-Min (ANTIOXIDANT FORMULA) Oral Capsule take 1 capsule by oral route once daily with food VITAMIN D ORAL 2000 IU daily Objective: BP 126/78 | Pulse 72 | Ht 1.651 m (5' 5") | Wt 65.227 kg (143 lb 12.8 oz) | SpO 2 98% Lungs: clear Abdomen: no organomegaly Extremities: no edema Cardiovascular: no JVD, carotids-neg, regular rhythm w/o murmur, rub or gallops Assessment: 1) Atrial tachycardia--on dofetilide 2) Dyspnea--new onset 3) Asthma 4) Breast cancer--s/p chemotherapy 5) Sjogren's Discussion: Adriana has been treated for her atrial tachycardias successfully with moricizin e(which is now unavailable) and now with dofetilide. She has a new onset over the last few months of dyspnea. She has seen her petroleum production engineer who did not feel it was her lungs contrib uting to this. She is not having any recognized arrhythmias. She has a strong family histo ry of CAD although a stress ECHO in 2004 was negative for ischemia. In the differential dona gnosis could be CAD, pulmonary emboli, new restrictive lung process with the Sjogren's, new LV dysfunction, or intolerance to the dofetilide. The case was reviewed and discussed with Dr. Fuentes who knows Adriana well. We will plan to ru le out primary cardiac problems. She will have a stress ECHO tomorrow AM to look at her LV function and to look for ischemia. She will also get some lab work including a D-Dimer chandrakant use of the consideration of pumonary emboli. The labs will also include TSH, metabolic set, CBC, lipid panel and a BNP. If these test results do not give us any clear answers we will have her decrease her dofetilide to 250mg twice daily and see if this helps. We will follcollin bhandari up after the tests. do cumented in this encounter Plan of Treatment + +------+--------+ + + | Name | Type | Priori | Associated Diagnoses | Date/Time | | | | ty | | | + +------+--------+ + + | STRESS EXERCISE | ECG | Routin | Dyspnea | 08/14/2008 3:40 PM | | ECHOCARDIOGRAM, | | e | | PST | | ADULT | | | | | + +------+--------+ + + documented as of this encounter Results LIPID SET (TRIG, T CHOL, HDL, CALC [...] DEPARTMENT OF | [address] | [place] [address] | | | PATHOLOGY | [address] | | | + + + + + | [facility] | [address] | [place] [address] | | | PATHOLOGY | [address] [...] | + + + + + | [facility] | [address] | [place] [address] | | | LABORATORY | | | [...] | + + + + + | [facility] | [address] | [place] [address] | | | PATHOLOGY | [address] | | | + + + + + | [facility] DEPARTMENT OF | [address] | [place] [address] | | | PATHOLOGY | [address] [...] DEPARTMENT OF | [address] | [place] [address] | | | PATHOLOGY | [address] | | | + + + + + | [facility] DEPARTMENT | [address] | [place] [address] | | | PATHOLOGY | [address] [...] cmnt | 60 - 99 mg/dL | [facility] | | | PLASMA | | [...] | + + + + + | [facility] DEPARTMENT OF | [facility] | [place] [address] | | | PATHOLOGY | [address] | | | + + + + + | [place] DEPARTMENT OF | [address] | [place] [address] | | | PATHOLOGY | [address] [...] | + + + + + | [facility] | [address] | [place] [address] | | | PATHOLOGY | [address] | | | + + + + + | [facility] | [address] | [place] [address] | | | PATHOLOGY | [address] | | | + + + + + documented in this encounter Visit Diagnoses + + | Diagnosis | + + | Atrial tachycardia 427.89 - Primary Other specified cardiac dysrhythmias | + + | Dyspnea Other dyspnea and respiratory abnormality | + + documented in this encounter
--- OUTSIDE RECORDS SUMMARY | ~2020-05-04 | XMS | Encounter Summary ---
Demographics + + + | Address | [address] | | | [place] [address] | + + + | Home Phone [...] + | Gene Gee | ECON | [address] | | | | | [place], | | | | | [place] [address] | | + + + + + Care Team Providers + +------+ + | Care Washer And Capper Machine Operator Name | Role | Phone | + +------+ + | Antony Ribera MD | PCP | | + +------+ + Encounter Details +--------+ + + + + | Date | Type | Department | Care Team | Description | +--------+ + + + + | / | Telephone | Hematology/Medical | Stevan Velazquez, | | | 2007 | | Oncology at [facility] | [address] | | | | | [address] | [place], [place] | | | | | Mailcode: CHDeidre | [phone] | | | | | [facility] | [phone] | | | | | and Healing, | | | | | | Building | | | | | | Floor [place], [place] | | | | | | [address] | | | | | | [phone] | | | +--------+ + + + [...] Notes Telephone Encounter - Mireya Rene - 2007 5:24 PM PSTCalled patient and let h er know to start her Arimidex per Dr. Velazquez. She is to call next week and let us know how he r breathing/cough is. Patient verbalized understanding and stated she would call. Janette jane signed by Mireya Rene at 2007 5:24 PM PSTTelephone Encounter - Mireya Landaverde se - 2007 4:06 PM PSTCalled and spoke with patient per request of Dr. Velazquez t o see how she is doing. Patient states her energy level is increasing and she was able to w ork 3 days last week. She only is coughing when she is having long winded conversations. N o more coughing at night. Her cough is dry, no sputum. Bowels normal. No palpitations. S he will wait to hear from Dr. Velazquez when she can start her arimidex. elephone Encounter - Mahsa Junior - 8 3:00 PM PSTCalles Gomes back documented in this encounter Plan of Treatment Not on filedocumented as of this encounter Visit Diagnoses Not on filedocumented in this encounter"
--- OUTSIDE RECORDS SUMMARY | ~2020-05-04 | XMS | Encounter Summary ---
Demographics + + + | Address | [address] | | | [place] [address] | + + + | Home Phone | | + + + | Preferred Language | Unknown | + + + | Marital Status | | + + + | Hindu Affiliation | CHR | + + + [...] + | Gene Gee | ECON | [address] | | | | | [place], | | | | | [place] [address] | | + + + + + Care Team Providers + +------+ + | Care Thermo Processor Name | Role | Phone | + +------+ + | Antony Ribera MD | PCP | | + +------+ + Reason for Visit + +--------+ + | Reason | Onset | Comments | | | Date | | + +--------+ + | Radiology Results | 11/18/ | | | | 2010 | | + +--------+ + Encounter Details +--------+ + + + + | Date | Type | Department | Care Team | Description | +--------+ + + + + | 11/18/ | Telephone | Hematology/Medical | Stevan Velazquez, | Radiology Results | | 2010 | | Oncology at [facility] | MD [address] | | | | | [address] | [place], [place] | | | | | Mailcode: CH7 | [phone] | | | | | [facility] | [phone] | | | | | and Healing, | | | | | | [facility] | | | | | | Floor [facility] [place] | | | | | | [address] | | | | | | [phone] | | | +--------+ + + + [...] this encounter Miscellaneous Notes Telephone Encounter - Rachel Childs MD - 11/18/2010 3:56 PM PDTI returned Ms. Flynn' s call on behalf of Dr. Smith who is on vacation. I explained, based on my review and the radiologist's review of her CT scan that some of her sub 5 mm nodules have gone away, so me are still there and remain stable, and there are some new sub-5mm ground glass nodules as well. I also explained due to their small size it is very difficult to make any assumption s about what they represent however it is quite likely these are benign post-inflammatory no dules. After answering her questions, I told Ms Flynn that Dr. Smith will contact her next week to discuss what will be the best plan for followup for these nodules. RACHEL CHILDS MD HEMATOLOGY ONCOLOGY [address] Mailcode: Ch7m [facility], 7th Floor [facility] [address] elephone Encount er - Rachel Childs MD - 11/18/2010 3:51 PM PDTMessage copied by RACHEL CHILDS MD on SunNovember 18, 2010 3:51 PM ------ Message from: SHAHLA ARREDONDO Created: SunNovember 17, 2010 3:19 PM Regarding: CT results Contact: Is there any chance her CT can be reviewed today, she is leaving town and would like t he results. She is very anxious to hear. Priscilla Montoya elephone Encounter - Jenny Moody - 11/18/2010 9:00 [address]TCarol had a CT scan done yeste rday. Calling for the results. [phone] signed by Jenny Moody at 2010 9:00 AM PDTdocumented in this encounter Plan of Treatment Not on filedocumented as of this encounter Visit Diagnoses Not on filedocumented in this encounter"
--- OUTSIDE RECORDS SUMMARY | ~2020-05-04 | XMS | Encounter Summary ---
Demographics + + + | Address | [address] | | | [place] [address] | + + + | Home Phone [...] + | Gene Gee | ECON | [address] | | | | | [place], | | | | | [place] [address] | | + + + + + Care Team Providers + +------+ + | Care Sourcer Name | Role | Phone | + +------+ + | Antony Ribera MD | PCP | | + +------+ + Reason for Visit +--------+ + | Reason | Comments | +--------+ + | Other | af with rapid ventric response | +--------+ + Encounter Details +--------+ + + + + | Date | Type | Department | Care Team | Description | +--------+ + + + + | 07/29/ | Emergency | [facility] Emergency | | | | 2018 | | Department [address] | | | | | [address] | | | | | | [facility] | | | | | | [place], [place] | | | | | | [address] | | | | | | [phone] | | | +--------+ + + + [...] | | 0 | | | | [id number] | daily. | | | | | [...] documented as of this encounter Miscellaneous Notes Comm [facility] Jossue Bay - 07/29/2017 9:24 PM PSTNo call back, closing encounterElectr onically signed by [place] at 07/29/2017 9:24 PM PSTComm [facility] [place] - 12:11 PM Carlo Puente connected with Dr Ki Gaytan (card), 71yof sob, dry cough hr flutter fib 150's, no change after metoprolol 3 doses, troponin is normal, afib with rapid response, cough and congestion, antibiotics given twice, hx atrial tachycardia, zoralto in november of last year, metropolol Referring will discuss with pt and call back to reconnect if transfer is required.Steffany solis signed by Jossue Bay at 07/29/2017 12:21 PM PSTdocumented in this encounter Plan of Treatment Not on filedocumented as of this encounter Visit Diagnoses Not on filedocumented in this encounter"
--- OUTSIDE RECORDS SUMMARY | ~2020-05-04 | XMS | Encounter Summary ---
Demographics + + + | Address | [address] | | | [place] [address] | + + + | Home Phone [...] + | Gene Gee | ECON | [address] | | | | | [place], | | | | | [place] [address] | | + + + + + Care Team Providers + +------+ + | Care Tax Agent Name | Role | Phone | + +------+ + | Antony Ribera MD | PCP | | + +------+ + Reason for Visit + + + | Reason | Comments | + + + | Postoperative | op 10/04/12 R breast TE exchange to implant and L breast reduction | | Procedure Education | | + + + Global Period [...] | | | | | | | [facility] [address] | [address] | | | | | | | Center for | | | | | | | Health and | | | | | | | Healing, | | | | | | | Building 1, | | | | | | | 5th Floor | | | | | | | [place], [place] | | | | | | | [address] | | | | | | | Phone: | | | | | | | [phone] | +--------+--------+ + + + + Encounter Details +--------+---------+ + + + | Date | Type | Department | Care Team | Description | +--------+---------+ + + + | 11/21/ | Office | Plastic and | Errol Gold | Breast cancer (HCC) | | 2013 | Visit | Reconstructive | MD [address] | (Primary Dx); | | | | Surgery at [facility] [address] | Acquired absence of | | | | [facility] | [address] [place], [place] | breast and nipple | | | | for Health and | [id number] | | | | | [facility] 1, | | | | | | 5th Floor | | | | | | [place], [place] | | | | | | [address] | | | | | | [phone] | | | +--------+---------+ + + + [...] +---------+ + + | Blood Pressure | 142/87 | 11/21/2012 11:47 AM | | | | | PDT | | + +---------+ + + | Pulse | 62 | 11/21/2012 11:47 AM | | | | | PDT | | + +---------+ + + | Temperature | - | - | | + +---------+ + + | Respiratory Rate | 16 | 11/21/2012 11:47 AM | | | | | PDT | | + +---------+ + + | Oxygen Saturation | 100% | 11/21/2012 11:47 AM | | | | | PDT [...] documented in this encounter Progress Notes Alla Buhcanan, Errol Holman - 11/21/2012 12:09 PM PDTPlastic and Reconstructive Surgery Follow-up History of Present Illness: Adriana Flynn is a 67 y.o. female presents today status-post r ight breast tissue help desk representative removal with placement of silicone implants, right breast capsul otomy and lateral capsulorrhaphy, left breast mastopexy for symmetry on October 04, 2012. Patient had 30 cc of serosanguinous fluid aspirated 5 weeks ago, followed by 8cc the next w at[place]. She has a small, improving area of ecchymosis where the aspiration was. Has been using arnica for a week now. Has a spitting suture at the left inferior aspect of vertical incision. Physical Exam: Vitals: BP 142/87 | Pulse 62 | RR 16 | SpO2 100% Right breast: Incision healing well, erythema absent, no edema, fluctuance absent, resolvi ng ecchymosis. Implant in good position, soft. No discrete masses. Capsular contracture: Ba ker grade I. Left breast: Incision healing well, erythema absent, mild edema - much improved from last v isit, no fluctuance, small area of ecchymosis near last aspiration. Edema noted within jillian st tissue. Nipple pink with slightly improved sensation Impression: Continues to heal well Plan: Recommended using ibuprofen for pain as well as it will help with the swelling. Pt may get in hot tub at this point. Return to clinic two months JUAN PABLO JUNIOR MD Structures Technician Department of Plastic Surgery [facility] 11/21/2012 Plastic and Reconstructive Surgery Attending Note I personally interviewed the patient, performed the pertinent parts of the physical examina tion and personally formulated the plan with Dr. Junior. I agree with the residents docume ntation and have documented any additions or exceptions. Follow up in two months to discuss nipple reconstruction Mark Gold MD Division of Plastic and Reconstructive Surgery Pager:[phone] documented in this encounter Miscellaneous Notes Scan - Other, Faculty - 12/11/2012 7:42 PM PDTElectronically signed by Faculty Other at 7:42 PM PDTdocumented in this encounter Plan of Treatment Not on filedocumented as of this encounter Visit Diagnoses + + | Diagnosis | + + | Breast cancer (HCC) - Primary Malignant neoplasm of breast (female), unspecified site | + + | Acquired absence of breast and nipple | + + documented in this encounter"
--- OUTSIDE RECORDS SUMMARY | ~2020-05-04 | XMS | Encounter Summary ---
Demographics + + + | Address | [address] | | | [place] [address] | + + + | Home Phone [...] + | Gene Gee | ECON | [address] | | | | | [place], | | | | | [place] [address] | | + + + + + Care Team Providers + +------+ + | Care Rv Mechanic Name | Role | Phone | + +------+ + | Alec Hill MD | PCP | | + +------+ + Encounter Details +--------+ + + + + | Date | Type | Department | Care Team | Description | +--------+ + + + + | 03/28/ | Ancillary | [facility] | | | | 2004 | Registratio | Practice [address] | | | | | n | [facility], | | | | | | [place] [address] | | | | | | [phone] | | | +--------+ + + + [...]
--- OUTSIDE RECORDS SUMMARY | ~2020-05-04 | XMS | Encounter Summary ---
Demographics + + + | Address | [address] | | | [place] [address] | + + + | Home Phone [...] + | Gene Gee | ECON | [address] | | | | | [place], | | | | | [place] [address] | | + + + + + Care Team Providers + +------+ + | Care Teacher Assistant Name | Role | Phone | + +------+ + | Antony Ribera MD | PCP | | + +------+ + Encounter Details +--------+ + + + + | Date | Type | Department | Care Team | Description | +--------+ + + + + | 06/12/ | Abstract | Cardiology | Gary Fuentes MD | | | 2011 | | Arrhythmia at [facility] | [address] | | | | | [address] | [address] [facility] | | | | | [facility] | [place] [address] | | | | | and Healing, | [phone] | | | | | | | | | | | Floor [place], [place] | | | | | | [address] | | | | | | [phone] | | | +--------+ + + + [...]
--- OUTSIDE RECORDS SUMMARY | ~2020-05-04 | XMS | Encounter Summary ---
Demographics + + + | Address | [address] | | | [place] [address] | + + + | Home Phone [...] + | Gene Gee | ECON | [address] | | | | | [place], | | | | | [place] [address] | | + + + + + Care Team Providers + +------+ + | Care Athletic Team Physician Name | Role | Phone | + +------+ + | Antony Ribera MD | PCP | | + +------+ + Reason for Visit + +--------+ + | Reason | Onset | Comments | | | Date | | + +--------+ + | Refill Request | 12/22/ | | | | 2008 | | + +--------+ + Encounter Details +--------+--------+ + + + | Date | Type | Department | Care Team | Description | +--------+--------+ + + + | 12/22/ | Refill | Cardiology | Gary Fuentes MD | Refill Request | | 2008 | | Arrhythmia at [facility] | [address] | | | | | [address] | [address] [place], | | | | | [facility] | [place] [address] | | | | | and Healing, | [phone] | | | | | [facility] | | | | | | Floor [place], [place] | | | | | | [address] | | | | | | [phone] | | | +--------+--------+ + + + [...]
--- OUTSIDE RECORDS SUMMARY | ~2020-05-04 | XMS | Encounter Summary ---
Demographics + + + | Address | [address] | | | [place] [address] | + + + | Home Phone [...] + | Gene Gee | ECON | [address] | | | | | [place], | | | | | [place] [address] | | + + + + + Care Team Providers + +------+ + | Care Constitutional Law Professor Name | Role | Phone | + +------+ + | Alec Hill MD | PCP | | + +------+ + Encounter Details +--------+ + + + + | Date | Type | Department | Care Team | Description | +--------+ + + + + | 06/22/ | Ancillary | Registration [address] | Katie Callahan MD | | | 2004 | Registratio | [address] | [address] | | | | [address] | [address] Mailcode: [id number] | Jacky Naqvi [place], | | | | | [place], [place] | [place] [address] | | | | | [address] | [phone] | | | | | [phone] | | | +--------+ + + + [...] | + +--------+ + + + | UREA NITROGEN, | Urgent | 06/22/2005 | | Results for this | | PLASMA | | 12:00 PM | | procedure are in the | | | | PST | | results section. | + +--------+ + + + | CREATININE, PLASMA | Urgent | 06/22/2005 | | Results for this | | | | 12:00 PM | | procedure are in the | | | | PST | | results section. | + +--------+ + + + documented in this encounter Results UREA NITROGEN, PLASMA (06/22/2005 12:00 PM PST) + +-------+ + + + [...] | + + + + + | [facility]PARTMENT [facility] | [address] | [place] [address] | | | PATHOLOGY | [address] | | | + + + + + | [facility] DEPARTMENT OF | [address] | [place] [address] | | | PATHOLOGY | [address] | | | + + + + + CREATININE, PLASMA (06/22/2005 12:00 PM PST) + +-------+ + + + | Component | Value | Ref Range | Performed | Pathologist | | | | | At | Signature | + +-------+ + + + | CREATININE | 0.9 | 0.6 - 1.1 mg/dL | [facility] | | | PLASMA | | [...] | + + + + + | [facility] | [address] | [place] [address] | | | PATHOLOGY | [address] | | | + + + + + | [facility] | [address] | [place] [address] | | | PATHOLOGY | [address] | | | + + + + + documented in this encounter Visit Diagnoses Not on filedocumented in this encounter"
--- OUTSIDE RECORDS SUMMARY | ~2020-05-04 | XMS | Encounter Summary ---
Demographics + + + | Address | [address] | | | [place] [address] | + + + | Home Phone [...] + | Gene Gee | ECON | [address] | | | | | [place], | | | | | [place] [address] | | + + + + + Care Team Providers + +------+ + | Care Information Security Engineer Name | Role | Phone | + +------+ + | Antony Ribera MD | PCP | | + +------+ + Reason for Visit + +--------+ + | Reason | Onset | Comments | | | Date | | + +--------+ + | Follow-up visit | 12/07/ | | | | 2009 | | + +--------+ + Encounter Details +--------+--------+ + + + | Date | Type | Department | Care Team | Description | +--------+--------+ + + + | 12/07/ | Refill | Cardiology | Monique Middleton, | Follow-up visit | | 2009 | | Arrhythmia at [facility] | [facility] | | | | | [address] | | | | | | [facility] | | | | | | and Healing, | | | | | | [facility] | | | | | | Floor [place], [place] | | | | | | [address] | | | | | | [phone] | | | +--------+--------+ + + + [...] Telephone Encounter - Monique Fuller RN - 12/07/2009 4:04 PM PDTCarol called to [facility] appt for this week- Gene hurt his back and is on bedrest. They are planning ot go to [facility] for a week- will be driving and she is concerned about her fibrmyalgia. she spoke with her pcp and he prescribed flexeril. When she checked the drug online- the first contra indication was arrhythmias, which she still has daily despite atenolol 50mg daily and dofeti lide- not prolonged, just brief episodes of palpitations. she had been on ultram in the [facility]- reviewed micromedex- she would a brief prescription for her long car ride. Will route t o Monique Middleton. They will also be in [place] for other tests- will see Dr Fuentes in January E lectronically signed by Monique Fuller RN at 12/07/2009 4:04 PM PDTdocumented in this enco unter Plan of Treatment Not on filedocumented as of this encounter Visit Diagnoses + + | Diagnosis | + + | Sjogren's syndrome (HCC) - Primary Sicca syndrome | + + documented in this encounter"
--- OUTSIDE RECORDS SUMMARY | ~2020-05-04 | XMS | Encounter Summary ---
Demographics + + + | Address | [address] | | | [place] [address] | + + + | Home Phone [...] + | Gene Gee | ECON | [address] | | | | | [place], | | | | | [place] [address] | | + + + + + Care Team Providers + +------+ + | Care Fire Prevention Bureau Captain Name | Role | Phone | + +------+ + | Antony Ribera MD | PCP | | + +------+ + Encounter Details +--------+ + + + + | Date | Type | Department | Care Team | Description | +--------+ + + + + | 05/17/ | MyChart | John [facility] | Tapan Horowitz MD | RE:bone density | | 2014 | Encounter | [facility] | [address] | | | | | Center at [facility] | De[place] Naq[place], | | | | | [address] | [place] [address] | | | | | [address] | [phone] | | | | | Physician's | | | | | | [place], 1st floor | | | | | | [place], [place] | | | | | | [address] | | | | | | [phone] | | | +--------+ + + + [...]
--- OUTSIDE RECORDS SUMMARY | ~2020-05-04 | XMS | Encounter Summary ---
Demographics + + + | Address | [address] | | | [place] [address] | + + + | Home Phone [...] + | Gene Gee | ECON | [address] | | | | | [place], | | | | | [place] [address] | | + + + + + Care Team Providers + +------+ + | Care Tax Collection Coordinator Name | Role | Phone | + +------+ + | Alec Hill MD | PCP | | + +------+ + Encounter Details +--------+ + + + + | Date | Type | Department | Care Team | Description | +--------+ + + + + | 03/16/ | [place] | [facility] | Tapan Horowitz MD | RE: DEXA scan | | 2019 | Encounter | [facility] | [address] | results from January | | | | Center at [facility] | [facility], | 2019 | | | | [address] | [place] [address] | | | | | [address] | [phone] | | | | | Physician's [address] | | | | | | Physician's | | | | | | [place] [facility], | | | | | | [place] [address] | | | | | | [phone] | | | +--------+ + + + [...]
--- OUTSIDE RECORDS SUMMARY | ~2020-05-04 | XMS | Encounter Summary ---
Demographics + + + | Address | [address] | | | [place] [address] | + + + | Home Phone [...] + | Gene Gee | ECON | [address] | | | | | [place], | | | | | [place] [address] | | + + + + + Care Team Providers + +------+ + | Care Neurocritical Care Physician Name | Role | Phone | + +------+ + | Antony Ribera MD | PCP | | + +------+ + Encounter Details +--------+ + + + + | Date | Type | Department | Care Team | Description | +--------+ + + + + | 06/08/ | Telephone | [facility] | Alea Noriega MD | | | 2007 | | [place] [address] [address] | [address] | | | | | [address] | [address] [place], | | | | | for Health and | [place] [address] | | | | | [place] [address] | [phone] | | | | | [place], [place] | | | | | | [address] | | | | | | [phone] | | | +--------+ + + + [...] encounter Miscellaneous Notes Telephone Encounter - Allison Moore Rn - 06/10/2008 10:15 AM PSTCarol notified by phone t hat the UGI did not show any reason for her obstructions. She would like to know what she s hould do from here. She is on her way out of town for the holiday. She will call back when she returns. elephone Encounter - Alea Noriega - 06/09/2008 4:09 PM PSTHeather can you please call this patient and let her know that her UGI did not show any masses or reason why she is having her obstructio ns. As suggested, her symptoms are likely related to adhesions. Thanks. Electronically si gned by Alea Noriega at 06/09/2008 4:09 PM PSTTelephone Encounter - Donna Finney - 8 9:11 AM PSTAlexisol Manda Flynn calling would like results from UGI done 06/05. Pain Scale: na Recent Surgery or Procedure: yes - 06/05 Pharmacy: Pharmacy Preferences: [facility] [address] [place] [address] [facility] [address] [place] [address] [address] Prescription [address] [place] [address] [facility] [address] [place] [address] documented in this encoun ter Plan of Treatment Not on filedocumented as of this encounter Visit Diagnoses Not on filedocumented in this encounter"
--- OUTSIDE RECORDS SUMMARY | ~2020-05-04 | XMS | Encounter Summary ---
Demographics + + + | Address | [address] | | | [place] [address] | + + + | Home Phone [...] + | Gene Gee | ECON | [address] | | | | | [place], | | | | | [place] [address] | | + + + + + Care Team Providers + +------+ + | Care Protective Services Officer Name | Role | Phone | + +------+ + | Antony Ribera MD | PCP | | + +------+ + Encounter Details +--------+ + + + + | Date | Type | Department | Care Team | Description | +--------+ + + + + | 07/26/ | MyChart | Hematology/Medical | Shukri, | RE: When to end | | 2012 | Encounter | Oncology at [facility] | Leydi Alfredo MD | donyamidex | | | | [address] | | | | | | Mailcode: [facility] | | | | | | [facility] | | | | | | and Healing, | | | | | | | | | | | | Floor [place], [place] | | | | | | [address] | | | | | | [phone] | | | +--------+ + + + [...]
--- OUTSIDE RECORDS SUMMARY | ~2020-05-04 | XMS | Encounter Summary ---
Demographics + + + | Address | [address] | | | [place] [address] | + + + | Home Phone [...] + | Gene Gee | ECON | [address] | | | | | [place], | | | | | [place] [address] | | + + + + + Care Team Providers + +------+ + | Care Dimension Stone Quarry Supervisor Name | Role | Phone | + +------+ + | Antony Ribera MD | PCP | | + +------+ + Encounter Details +--------+------+ + + + | Date | Type | Department | Care Team | Description | +--------+------+ + + + | 06/13/ | Lab | Laboratory at [facility] | | Other specified | | 2017 | | [address] | | disorders of bone | | | | Loop Physician's | | density and | | | | Pavilion, 3rd floor | | structure, | | | | [place], [place] | | unspecified site | | | | [address] | | (CODE) ; Disorder of | | | | [phone] | | bone and cartilage; | | | | | | Thyroid nodule | +--------+------+ + [...] + | VITAMIN D, | Routin | 06/13/2017 | Other specified | Results for this | | 25-HYDROXY, SERUM | e | 1:00 PM | disorders of bone | procedure are in the | | | | PST | density and | results section. | | | | | structure, | | | | | | unspecified site | | | | | | (CODE) Disorder of | | | | | | bone and cartilage | | + +--------+ + + + | TSH | Routin | 06/13/2017 | Thyroid nodule | Results for this | | | e | 1:00 PM | | procedure are in the | | | | PST | | results section. | + +--------+ + + + documented in this encounter Results TSH (06/13/2017 1:00 PM [...] [facility] | [address] | [place] [address] | | | SERVICES, CORE | PARK [...] + + + + + | [facility] | [address] | [place] [address] | | | SERVICES, CORE | PARK [...]
--- OUTSIDE RECORDS SUMMARY | ~2020-05-04 | XMS | Encounter Summary ---
Demographics + + + | Address | [address] | | | [place] [address] | + + + | Home Phone [...] + | Gene Gee | ECON | [address] | | | | | [place], | | | | | [place] [address] | | + + + + + Care Team Providers + +------+ + | Care Select Banker Name | Role | Phone | + +------+ + | Antony Ribera MD | PCP | | + +------+ + Encounter Details +--------+ + + + + | Date | Type | Department | Care Team | Description | +--------+ + + + + | 06/20/ | Results | Surgical Oncology | [facility], | | | 2006 | Only | at [facility] [address] | [address] | | | | | Ave Center for | [place], [place] | | | | | Health and Healing, | [address] | | | | | Building [address] | [phone] | | | | | [place], [place] | | | | | | [address] | | | | | | [phone] | | | +--------+ + + + [...] | MA DIGITAL MAMMO | Routin | 05/21/2008 | | Results for this | | DIAG LEFT | e | 11:46 AM | | procedure are in the | | | | PST | | results section. | + +--------+ + + + | DERMATOPATHOLOGY(WET | Routin | 07/22/2007 | | Results for this | | [place]) | e | | | procedure are in the | | | | | | results section. | + +--------+ + + + | DERMATOPATHOLOGY(WET | Routin | 06/20/2007 | | Results for this | | MOUNT) | e | | | procedure are in the | | | | | | results section. | + +--------+ + + + documented in this encounter Results MA DIG MAMMO DIAG LEFT (05/21/2008 11:46 AM PST) + + + + + [...] atage | | | | | | [age]mastectomies of the | | | | | | right breast, March | | | | | | 2006.Last mammogram was | | | | | | performed 5 months | | | | | | ago.six month f/u | | | | | | subcentimeter cystsMAM | | | | | | DIG MAMMO DIAG LEFT: | | | | | | May 21, 2008 - | | | | | | | | | | | | MLO, and XCCL view(s) | | | | | | were taken of the left | | | | | | breast.Prior study | | | | | | comparison: December 04, | | | | | | 2007, Stephane DIG MAMMO DIAG | | | | | | LEFT.November 19, 2006, | | | | | | bilateral mammogram, | | | | | | performed at an | | | | | | outsidefacility. May | | | | | | 2005, bilateral | | | | | | mammogram, performed at | | | | | | anoutside facility.The | | | | | | breast tissue is | | | | | | heterogeneously dense. | | | | | | This may lower | | | | | | thesensitivity of | | | | | | mammography. No | | | | | | suspicious | | | | | | calcifications,masses, | | | | | | or architectural | | | | | | distortion present. The | | | | | | patient isstatus post | | | | | | right mastectomy. No | | | | | | significant changes | | | | | | whencompared with prior | | | | | | studies.ASSESSMENT: | | | | | | Probably Benign - | | | | | | Category | | | | | | 3RECOMMENDATION:Routine | | | | | | screening mammogram of | | | | | | the left breast to | | | | | | return toannual | | | | | | screening.AddendLblThis | | | | | | report was addended for | | | | | | administrative | | | | | | purposes.I have | | | | | | personally viewed this | | | | | | procedure/exam and | | | | | | reviewed this | | | | | | report.Author: ESTEFANIA Lockett | | | | | | Declan HOLDERReviewer: ESTFEANIA | | | | | | Levy HOLDER M.D.STATUS FINAL | | | | | | / Dr. ESTEFANIA HOLDERSTATUS | | | | | | FINAL / Dr. ESTEFANIA Lockett | | | | | | GLORYSTAT FINAL / | | | | | | ESTEFANIA HOLDER | | | | + [...] | | | + +---------+ + + DER[facility]OPATHOLOGY([facility]) (07/22/2007) + + + + + + | Component | Value | Ref Range | Performed | Pathologist | | | | | At | Signature | + + + + + + | DERMATOPATH | SOURCE OF SPECIMEN:A | | | | | OLOGY(WET | FIRST TISSUE LEVEL IV | | | | | MNT) | [id number] CLINICAL | | | | | | DESCRIPTION:Ellipse, | | | | | | right upper back mass; | | | | | | re-excision basal cell. | | | | | | GROSS DESCRIPTION:Rt. | | | | | | upper back, ellipse 2.6 | | | | | | x 0.8 x 0.6 cm, with a | | | | | | long suture at one | | | | | | end,no designation | | | | | | given, and a short | | | | | | suture along one long | | | | | | margin, nodesignation | | | | | | given. The long suture | | | | | | is placed at 12:00, | | | | | | short suture at9:00. | | | | | | 12:00-6:00 in inked | | | | | | black, 6:00-12:00 is | | | | | | inked green. | | | | | | Ninesegments, two | | | | | | cassettes, starting with | | | | | | 12:00 in cassette one. | | | | | | MICROSCOPIC | | | | | | DESCRIPTION:There are | | | | | | two distinct neoplasms | | | | | | in the excision. In | | | | | | some sections thereare | | | | | | irregularly sized | | | | | | collections of basaloid | | | | | | epithelial cells, many | | | | | | withepidermal | | | | | | connection, extending | | | | | | into the papillary | | | | | | dermis. There | | | | | | isperipheral nuclear | | | | | | palisading. The | | | | | | basaloid nuclei are | | | | | | mildly pleomorphicand | | | | | | hyperchromatic. In | | | | | | adjacent sections there | | | | | | is a small symmetrical | | | | | | andwell circumscribed | | | | | | melanocytic neoplasm | | | | | | characterized by a few | | | | | | melanocyticnests along | | | | | | the basal layer as well | | | | | | as in the papillary | | | | | | dermis. In | | | | | | somesections there is | | | | | | dense fibrosis adjacent | | | | | | to the basal cell | | | | | | carcinoma. 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 The | | | | | | nevus was apparently | | | | | | removed by coincidence | | | | | | during thesurgical | | | | | | procedure and appears to | | | | | | be completely excised | | | | | | as well. | | | | | | LETICIA/[email or web address]/25/07Rendering | | | | | | Diagnostician: Esteban | | | | | | Brenna Corcoran Jr., | | | | | | Ishi | | | | | | will Signed 07/25/2007 | | | | + + + + + + + + | Specimen | + + | | + + + + + + + | Performing | Address | City/State/Zipcode | Phone Number | | Organization | | | | + + + + + | [facility] | [address] | [place] [address] | | | DERMATOPATHOLOGY | [address] | | | + + + + + DERMAT[facility]ATHOLOGY([facility]) (06/20/2007) + + + + + + | Component | Value | Ref Range | Performed | Pathologist | | | | | At | Signature | + + + + + + | DERMATOPATH | SOURCE OF SPECIMEN:A | | | | | OLOGY(WET | FIRST TISSUE LEVEL IV | | | | | MNT) | [id number] CLINICAL | | | | | | DESCRIPTION:Punch, 4mm, | | | | | | right upper back; | | | | | | abnormal mole. GROSS | | | | | | DESCRIPTION:Right upper | | | | | | back, punch 0.4 x 0.4 | | | | | | cm, bisected. | | | | | | MICROSCOPIC | | | | | | DESCRIPTION:There are | | | | | | aggregates of cells with | | | | | | hyperchromatic nuclei, | | | | | | scant | | | | | | cytoplasmcontaining | | | | | | pigment and palisading | | | | | | of the peripheral | | | | | | nuclei. DIAGNOSIS:BASAL | | | | | | CELL CARCINOMA, | | | | | | PIGMENTED.NOTE: The | | | | | | basal cell carcinoma | | | | | | extends to the surgical | | | | | | margins. Thereis no | | | | | | evidence of a | | | | | | melanocytic neoplasm. | | | | | | LETICIA/jyi06/25/07Rendering | | | | | | Diagnostician: | | | | | | Esteban Corcoran Jr., | | | | | | Ishi | | | | | | will Signed 06/25/2007 | | | | + + + + + + + + | Specimen | + + | | + + + + + + + | Performing | Address | City/State/Zipcode | Phone Number | | Organization | | | | + + + + + | [facility] | [address] | [place] [address] | | | DERMATOPATHOLOGY | [address] | | | + + + + + documented in this encounter Visit Diagnoses Not on filedocumented in this encounter"
--- OUTSIDE RECORDS SUMMARY | ~2020-05-04 | XMS | Encounter Summary ---
Demographics + + + | Address | [address] | | | [place] [address] | + + + | Home Phone [...] + | Gene Gee | ECON | [address] | | | | | [place], | | | | | [place] [address] | | + + + + + Care Team Providers + +------+ + | Care Telegraph Repeater Mechanic Name | Role | Phone | [...] + + | 06/26/ | Anesthesia | Endoscopic | Claritza, | | | 2017 | Event | Procedural Unit at | Ki Veliz MD [address] | | | | | [address] | [address] [facility] | | | | | [address] | [address] [place], [place] | | | | | [place], | [address] | | | | | 4th floor [place], | [phone] | | | | | [place] [address] | | | | | | [phone] | Delmi Zarate MD | | | | | | [address] | | | | | | [address] | | | | | | [place], [place] | | | | | | [address] | | | | | | [phone] | | | | | | | | +--------+ + + + + Anesthesia Record + + + + + | Procedure Name | Responsible | Anesthesia Start | Anesthesia Stop Time | | | Anesthesiologist | Time | | + + + + + | COLONOSCOPY | Ki Veliz | 06/26/17 1014 | 06/26/17 1047 | | | MD Claritza | | | + + + + + +----+---+ + + | Da | T | Event | Comment | | te | i | | | | | m | | | | | e | | | +----+---+ + + | 12 | 0 | | | | /1 | 9 | | | | 2/ | 0 | | | | 20 | 4 | | | | 17 | | | | +----+---+ + + | | 0 | Pt. Check | Prior to anesthesia start, pt. Identified, examined, chart | | | 9 | | reviewed, PARQ held, anesthetic plan made or approved by | | | 0 | | attending anesthesiologist. NPO status confirmed as appropriate | | | 4 | | for procedure Preoperative evaluation: unchanged | +----+---+ + + | | 1 [...] + | Name | + + | O2 Flow Rate (Total Liters) | + + + + | No blood administrations on file. | + + +--------+ + + + | Type | Details | Placement | Removal | +--------+ + + + | Periph | 06/26/17; 0920; Jj VARGAS VAT; | 06/26/17919 by | 06/26/171124 by | | alciral | Left; Anterior; Antecubital; 20 | Xander [...] encounter OR Notes Anesthesia Postprocedure Evaluation - Delmi Zarate MD - 06/26/2017 10:47 AM PSTFormatt ing of this note might be different from the original. Adriana Flynn [id number] Allergies Allergen Reactions Sulfa (Sulfonamide Antibiotics) Swelling-Facial and Unknown Adhesive Tape-Silicones Rash Cardizem [Diltiazem Hcl] Hives Crestor [Rosuvastatin Calcium] muscle/Jt Pain Lactose Cough Intestinal/congestion. Intestinal/congestion. Albuterol Tachycardia and Palpitations Celebrex [Celecoxib] Diarrhea, Cough and Unknown Propafenone Diarrhea Intestinal distress. Tape Adherent Rash Ok with coban Past Surgical History Procedure Laterality Date Ectopic [...] Raymond Rose Heart ablation 12/16/2004,09/21/2005 Dr. Fuentes, [facility] Mastectomy Biopsy / excision / dissection axillary node Cataract extraction Temp: 36.3 C (97.3 F) Pulse: 92 Resp: 18 BP: 107/58 SpO2: 98 % Evaluation Patient personally seen and evaluated for recovery from anesthesia care, VS including tempe rature and hydration status are normal and ROS including card, resp, Neuro, and GI w/o evide nce of adverse effects Complications nesthesia Preproced ure Evaluation - Delmi Zarate MD - 06/26/2017 9:04 AM PST Adriana Flynn [id number] Allergies Allergen Reactions Sulfa (Sulfonamide Antibiotics) Swelling-Facial and Unknown Adhesive Tape-Silicones Rash Cardizem [Diltiazem Hcl] Hives Crestor [Rosuvastatin Calcium] muscle/Jt Pain Lactose Cough Intestinal/congestion. Intestinal/congestion. Albuterol Tachycardia and Palpitations Celebrex [Celecoxib] Diarrhea, Cough and Unknown Propafenone Diarrhea Intestinal distress. Tape Adherent Rash Ok with coban NPO:NPO Status: 06/24/17 solids Last Vitals: Temp: 36.5 C (97.7 F) Pulse: 81 Resp: 16 BP: 147/80 SpO2: 99 % O2 Delivery Device: None (room air) Preg Status/LMP: Patient Active Problem List Diagnosis Disorder of bone and cartilage Breast cancer (HCC) Sjogren's syndrome (HCC) Asthma Paroxysmal atrial fibrillation (HCC) Past Surgical History Procedure Laterality Date Ectopic [...] Dr. Raymond Rose Heart ablation 12/16/2004,09/21/2005 Dr. Fuenets, [facility] Mastectomy Biopsy / excision / dissection axillary node Cataract extraction Current Medication List Name Sig Last Dose BUDESONIDE 180 MCG/ACTUATION BREATH ACTIVATED POWDER INHALER Inhale 3 puffs by mouth two ti mes daily. 06/24/2017 CITRACAL PLUS D 315 MG-200 UNIT TABLET 2 tabs in evening and liquid calcium citrate in AM 06/23/2017 CARBOXYMETHYLCELLULOSE SODIUM 0.5 % EYE DROPS IN A DROPPERETTE 1 drop 3 Times Daily 017 EZETIMIBE 10 MG TABLET Take 10 mg by mouth once daily. 06/24/2017 FLUTICASONE 50 MCG/ACTUATION NASAL SPRAY,SUSPENSION Instill 1 spray into each nostril two t imes daily. 06/25/2017 IPRATROPIUM BROMIDE 0.02 % SOLUTION FOR INHALATION Inhale 2.5 mL(ONE AMPULE) via nebulizer every six hours as needed (Shortness of breath). 06/24/2017 LACTOBACILLUS COMB NO.0-ERN-MPLSBIHBIE 300 MILLION CELL-250 MG CAPSULE Take by mouth once daily. 06/22/2017 LEVALBUTEROL 1.25 MG/3 ML SOLUTION FOR NEBULIZATION Inhale 3 mL every six hours as needed ( shortness of breath). Indications: Acute Asthma Attack 06/23/2017 LEVALBUTEROL HFA 45 MCG/ACTUATION AEROSOL INHALER Inhale 1-2 puffs by mouth every six hours as needed. Indications: Bronchospasm Prevention 06/23/2017 LORAZEPAM 1 MG TABLET 0.5 Tabs Q HS PRN. 06/19/2017 METOPROLOL TARTRATE 50 MG TABLET Take 75mg TID. May take an additional 25mg PRN palpitatio ns 06/26/2017 MULTIVITAMIN OR one daily 06/21/2017 OFLOXACIN 0.3 % EYE DROPS as needed. Unknown POLYETHYLENE GLYCOL 3350 17 GRAM/DOSE ORAL POWDER Mix 17 g in liquid and drink once daily. 06/21/2017 POTASSIUM CHLORIDE ER 20 MEQ TABLET,EXTENDED RELEASE(PART/CRYST) Take 1 tablet by mouth onc e daily. 06/18/2017 RABEPRAZOLE 20 MG TABLET,DELAYED RELEASE Take 20 mg by mouth every twelve hours. 06/23/2017 RIVAROXABAN 20 MG TABLET Take 1 tablet by mouth once daily with dinner 06/24/2017 TIOTROPIUM BROMIDE 1.25 MCG/ACTUATION MIST FOR INHALATION Inhale 2 puffs once daily. Indica tions: Maintenance Therapy for Asthma 06/25/2017 ANTIOXIDANT FORMULA CAPSULE take 1 capsule by oral route once daily with food 06/24/2017 VITAMIN D ORAL 3000 IU daily 06/24/2017 Lab Results Component Value Date RATE 83 05/16/2017 ATRIALRATE 84 05/16/2017 TX 193 05/16/2017 QRS 97 05/16/2017 QT 393 05/16/2017 QTC 471 06/25/2012 PAXIS 62 05/16/2017 RAXIS -22 05/16/2017 TAXIS 22 05/16/2017 EKGDX 06/25/2012 Sinus bradycardia Prolonged QT Abnormal ECG Confirmed by BERNARD GONZALEZ ([id number]) on 06/25/2012 10:21:45 PM Preoperative Adult Anesthesia Plan Last edited 06/26/17903 by Delmi Zarate MD ROS Pertinent HPI: 71 y/o F presenting for colonoscopy PMHx #breast CA # asthma #TMJ # a tach s/p ablation 2004 #pAfib - off xarelto for procedure per EP #hx of DVT/PE #fibromyalgia Prior G1V with glidescope. Anterior airway with DL, required bougie. Allergies reviewed. Denies hx of anesthesia complication Pulmonary: Pt. Has asthma No dx of sleep apnea Risks factors for sleep apnea: Age>50 Cardiovascular: Stress echo 2011 - no ischemia, nl LV function. Recent holter with PACs Functional Capacity: Low no CAD no pacemaker GI/Hepatic: GERD : Lab Results Component Value Date NA 143 06/01/2015 K 4.3 06/01/2015 CL 109 06/01/2015 BICARB 23 06/01/2015 BUN 14 06/01/2015 CR 0.87 06/01/2015 GLU 88 06/01/2015 CA 9.5 06/01/2015 ANIONGAP 7 11/23/2011 ANIONALBCOR 7 11/23/2011 Endo: no Diabetes: Neurological: no seizures Current Pain Level: MS: no arthritis Heme/Onc: Lab Results Component Value Date WBC 5.8 06/01/2015 HB 14.6 06/01/2015 HCT 44.6 06/01/2015 PLT 151 06/01/2015 MCV 90.6 06/17/2012 RDW 13.9 06/17/2012 Malignancy: cancer, Location: Breast, Metastasis: Skin: Obstetrics: Physical Exam General: Patients general appearance: Alert and No distress Head & Neck/Airway: Dentition: dentition is normal Dental risk discussed with/pt : Yes Melo: No Mallampati: II Mouth Opening: > = 3 cm C-Spine: normal Neck Anatomy: Normal Jaw Protrusion: Normal, lower incisors can protrude past upper incisors Lung Exam: breath sounds normal Cardiac: Rhythm: regular Rate: normal Abdominal: Musculoskeletal: Neuro/Psych: alert Integument: Implants: 3 Revision History Date/Time User Provider Type Action > 06/26/17 09 Delmi Zarate MD Resident Sign 06/25/17 0960 Delmi Zarate MD Resident Share Anesthesia Plan Comments ASA ASA 3 NPO Status NPO Status: NPO by protocol Monitors/Lines to be used Standard Anesthetic Consideration Preop antibiotics Induction intravenous induction Anesthetic Technique Monitored Anesthesia Care and General; Obstetric Anesthesia Post-Op Pain Plan IV analgesics and Orals; Blood Products Interpretive Services Informed Consent PARQ discussed with: patient, Procedures, Alternatives, Risks, and Questions discussed and Risk/benefit of anesthesia plan and blood product discussed ; ; Date Consent Series Given: 06/26/2017 9:04 AM Code status in OR Patients Code Status in OR: FULL 06/26 9:04 AM documented in t his encounter Miscellaneous Notes Addendum Note - Ki Jerry MD - 06/28/2017 12:35 PM PST Addendum created 06/28/17 1235 by Ki Jerry MD Anesthesia Attestations filed MC/ANE PreOp Note - Delmi Zarate MD - 06/25/2017 3:37 PM PST ROS Pertinent HPI: 71 y/o F presenting for colonoscopy PMHx #breast CA # asthma #TMJ # a tach s/p ablation 2004 #pAfib - off xarelto for procedure per EP #hx of DVT/PE #fibromyalgia Prior G1V with glidescope. Anterior airway with DL, required bougie. Allergies reviewed. De nies hx of anesthesia complication Pulmonary: Pt. Has asthma No dx of sleep apnea Risks factors for sleep apnea: Age>50 Cardiovascular: Stress echo 2011 - no ischemia, nl LV function. Recent holter with PACs Fu nctional Capacity: Low no CAD no pacemaker GI/Hepatic: GERD : Lab Results Component Value Date NA 143 06/01/2015 K 4.3 06/01/2015 CL 109 06/01/2015 BICARB 23 06/01/2015 BUN 14 06/01/2015 CR 0.87 06/01/2015 GLU 88 06/01/2015 CA 9.5 06/01/2015 ANIONGAP 7 11/23/2011 ANIONALBCOR 7 11/23/2011 Endo: no Diabetes: Neurological: no seizures Current Pain Level: MS: no arthritis Heme/Onc: Lab Results Component Value Date WBC 5.8 06/01/2015 HB 14.6 06/01/2015 HCT 44.6 06/01/2015 PLT 151 06/01/2015 MCV 90.6 06/17/2012 RDW 13.9 06/17/2012 Malignancy: cancer, Location: Breast, Metastasis: Skin: Obstetrics: Physical Exam General: Patients general appearance: Alert and No distress Head & Neck/Airway: Dentition: dentition is normal Dental risk discussed with/pt : Yes Melo: No Mallampati: I I Mouth Opening: > = 3 cm C-Spine: normal Neck Anatomy: Normal Jaw Protrusion: Normal, lowe r incisors can protrude past upper incisors Lung Exam: breath sounds normal Cardiac: Rhythm: regular Rate: normal Abdominal: Musculoskeletal: Neuro/Psych: alert Integument: Implants: MC/ANE PreOp Note - Fallon Lowery RN - 06/19/2017 2:46 PM PST ROS Pertinent HPI: Lymphedema in right arm- patient claims she "is a hard stick" Pulmonary: Pt. Has asthma Classification: Frequency: constantly ER Visits: Hospital Visits: Cardiovascular: RA stacey tach ablated 2004 at [facility] Mitral valve prolapse Functional [place] ity: Moderate GI/Hepatic: GERD Control: Well controlled : Within Defined Limits except as noted below Endo: Within Defined Limits except as noted below Neurological: Within Defined limits except as noted below Current Pain Level: Current pain level: 0 MS: Other MS, fibromyalgia Heme/Onc: Malignancy: cancer, Location: Breast, Metastasis: Skin: Obstetrics: 71 y.o. F scheduled for: COLONOSCOPY on 06/26/17 Location: [facility] 4th Floor Past medical hx is significant for diverticulosis of small intestine without perforation or abscess without bleeding . Weight__166___lbs. Height_5__ Ft._5_Inches BMI _25.65___ No current H&P located under EPIC encounter tab or in Care Everywhere Recent EKG completed on 05/16/2017 Full H&P to be completed on DOS Patient interview complete and pertinent updates documented under patient history. Patient received pre-op instructions per AVS and verbalized good understanding. Phone appoi ntment completed as scheduled. Transportation: documented in this enco unter Plan of [...] | INTRAPROCEDURE PRN, Starting Tue | | AM PST | | | | | 06/26/17 at 1028, Until Tue | | | | | | | 06/26/17 at 1040 | | | | | | + +--------+ +-------+------+------+ +---+---+ | | | +---+---+ + + + +---+---+---+ | lactated Ringers IV | given by | 06/26/20 | | | | | INTRAPROCEDURE CONTINUOUS PRN, | | 17 10:31 | | | | | Starting 06/26/17 at 1014, | anesthes | AM PST | | | | | Until Sun06/26/17 at 1040 | iology | | | | | + + + +---+---+---+ +---------+ +---+---+---+ | New Bag | 06/26/20 | | | | | | 17 10:14 | | | | | | AM PST | | | | +---------+ +---+---+---+ +---+---+ | | | +---+---+ + + + + +--------+---+ | propofol (DIPRIVAN) injection | Rate/Dos | 06/26/20 | 100 | 42.72 | | | INTRAPROCEDURE CONTINUOUS PRN, | e Change | 17 10:28 | mcg/kg/m | mL/hr | | | Starting e 06/26/17 at 1021, | | AM PST | in | | | | Until Sun06/26/17 at 1040 | | | | | | + + + + +--------+---+ +---------+ + +--------+---+ | New Bag | 06/26/20 | 175 | 74.76 | | | | 17 10:21 | mcg/kg/m | mL/hr | | | | AM PST | in | | | +---------+ + +--------+---+ +---+---+ | | | +---+---+ + +-------+ +-------+---+---+ | propofol INTRAPROCEDURE PRN, | Given | 06/26/20 | 40 mg | | | | Starting 06/26/17 at 1021, | | 17 10:21 | | | | | Until 06/26/17 at 1040 | | AM PST | | | | + +-------+ +-------+---+---+ +---+---+ | | | +---+---+ documented in this encounter
--- OUTSIDE RECORDS SUMMARY | ~2020-05-04 | XMS | Encounter Summary ---
Demographics + + + | Address | [address] | | | [place] [address] | + + + | Home Phone [...] + | Gene Gee | ECON | [address] | | | | | [place], | | | | | [place] [address] | | + + + + + Care Team Providers + +------+ + | Care It Infrastructure Engineer Name | Role | Phone | [...] absence of | [address] | | | | | breast and | [address] | [address] [place] | | | | | nipple | [place], [place] | Rd [place], | | | | | Procedures | [address] | [place] | | | | | CONSULT TO | Phone: | [phone] | | | | | ENDO | [phone] | Phone: | | | | | [address] | Fax: | [phone] | | | | | | [phone] | Fax: | | | | | | | [phone] | +--------+ + + + + + Encounter Details +--------+---------+ + + + | Date | Type | Department | Care Team | Description | +--------+---------+ + + + | 06/06/ | Office | [facility] | Tapan Horowitz MD | Osteopenia (Primary | | 2013 | Visit | [facility] | [address] [facility] | Dx); Thyroid nodule | | | | [facility] | [address] [place], | | | | | [address] | [place] [address] | | | | | [address] | [phone] | | | | | Physician's | | | | | | Pavilion, 1st floor | | | | | | [place], [place] | | | | | | [address] | | | | | | [phone] | | | +--------+---------+ + + + [...] + + + | Blood Pressure | 124/72 | 06/06/2013 2:39 PM | | | | | PST | | + + + + + | Pulse | 74 | 06/06/2013 2:39 PM | | | | | PST | | + + + + + | Temperature | - | - | | + + + + + | Respiratory Rate | 12 | 06/06/2013 2:39 PM | | | | | PST | | + + + + + | Oxygen Saturation | - | - | | + + + + + | Inhaled Oxygen | - | - | | | Concentration | | | | + + + + + | Weight | 63.5 kg (140 lb) | 06/06/2013 2:39 PM | | | | | PST | | + + + + + | Height | 167.1 cm (5' 5.8") | 06/06/2013 2:39 PM | | | | | PST | | + + + + + | Body Mass Index | 22.73 | 06/06/2013 2:39 PM | | | | | PST | | + + + + + documented in this encounter Progress Notes Tapan Horowitz MD - 06/06/2013 2:53 PM PSTFormatting of this note might be different from michael tamez. Chief Complaint: Patient being seen in followup for the following issues: osteopenia ROS Cardiovascular and pulmonary systems have been reviewed and no new events. History Smoking status Never Smoker Smokeless tobacco Never Used Comment: nonsmoker/parents smoked History Alcohol Use No S/ Interval History: no falls, fractures, kidney stones, dental problems since last visit i n apr 2012. Had successful left thumb surgery. No dysphagia, dysphonia. Exam: Filed Vitals: 06/06/2013 2:39 PM Height: 1.671 m (5' 5.8") Weight: 63.504 kg (140 lb) BP: 124/72 Pulse: 74 Resp: 12 PainSc: 0 - Zero BMI: 22.74 kg/(m^2) Gen: NAD CV: Regular MoutH; stable dentition Neck; no masses Lungs: CTA Neuro: Alert and oriented x 3 A/P 1. Osteopenia; Pt rcvd IV Reclast from [id number] and has done great. Her bone density is st able and now she is off arimidex. No need for further infusions. Pt on calcium/vit d- check vit d level. Pt sees dentist regularly. The patient was provided with external order slips. The patient understands that they are solely responsible in making sure the results are comm unicated to the ordering provider, no reminders will be provided. 2. Thyroid: Pt with sub-centimeter thyroid nodules that do not require biopsy. No neck symp toms. Check ultrasound in 2014 for surveillance. Electronically signed by MD ester Don 06/06/2013 2:55 PM PSTdocumented in this encounter Plan of Treatment Not on filedocumented as of this encounter Procedures + +--------+ + + + | Procedure Name | Priori | Date/Time | Associated Diagnosis | Comments | | | ty | | | | + +--------+ + + + | VITAMIN D, | Routin | 06/10/2013 | Osteopenia | Results for this | | 25-HYDROXY, SERUM | e | | | procedure are in the | | | | | | results section. | + +--------+ + + + documented in this encounter Results VITAMIN D, 25-HYDROXY, SERUM (06/10/2013) + +-------+ + + + | Component | Value | Ref Range | Performed | Pathologist | | | | | At | Signature | + +-------+ + + + | VITAMIN D | 51 | 30 - 80 ng/mL | [facility] | | | 25 HYDROXY | | | LAB | | + +-------+ + + + + + | Specimen | + + | Blood - Blood | + + + + + + + | Performing | Address | City/State/Zipcode | Phone Number | | Organization | | | | + + + + + | [facility] | [address] | [place], [place] | | | | [address] | [address] | | + + + + + | [facility] | [address] | [place], [place] | | | | [address] | [address] | | + + + + + documented in this encounter Visit Diagnoses + + | Diagnosis | + + | Osteopenia - Primary Disorder of bone and cartilage, unspecified | + + | Thyroid nodule Nontoxic uninodular goiter | + + documented in this encounter
--- OUTSIDE RECORDS SUMMARY | ~2020-05-04 | XMS | Encounter Summary ---
Demographics + + + | Address | [address] | | | [place] [address] | + + + | Home Phone [...] + | Gene Gee | ECON | [address] | | | | | [place], | | | | | [place] [address] | | + + + + + Care Team Providers + +------+ + | Care Assistant Director Of Public Works Name | Role | Phone | + +------+ + | Alec Hill MD | PCP | | + +------+ + Reason for Visit + + + | Reason | Comments | + + + | Osteoporosis | | + + + | Phone communication | | + + + Encounter Details +--------+ + + + + | Date | Type | Department | Care Team | Description | +--------+ + + + + | 01/29/ | Telephone-S | [facility] | Tapan Corcoran MD | Osteoporosis; Phone | | 2020 | cheduled | [facility] | [address] | communication | | | | [facility] | [address] [place], | | | | | [address] | [place] [address] | | | | | [address] | [phone] | | | | | Physician[facility] | | | | | | Physician's | | | | | | Pavilion [place], | | | | | | [place] [address] | | | | | | [phone] | | | +--------+ + + + [...] documented as of this encounter Progress Notes Tapan Corcoran MD - 01/30/2020 2:50 PM PDTPatient agrees to a telephone encounter for today 's visit. They understand they may be responsible for the balance after insurance processes the claim. The visit took place via telephone with the provider located at the distant site of [facility]. T he patient stated they were located at the originating site of home and were in the state of [place] at the time of the telephone visit. The names of all additional persons participating in the telephone visit and their roles are: gee corcoran. Time spent on the call: 7 min. The patients encounter was accomplished via a telephone call today due to COVID-19 precauti onary measures to limit the patient's unnecessary exposure. 1) Osteoporosis: last rcvd Reclast in september 2018. No new fractures. Pt will forward me DXA for review. Pt on calcium/vit d. Pt sees dentist regularly. documented in this encou nter Plan of Treatment Not on filedocumented as of this encounter Visit Diagnoses + + | Diagnosis | + + | Age-related osteoporosis without current pathological fracture - Primary Senile | | osteoporosis | + + documented in this encounter"
--- OUTSIDE RECORDS SUMMARY | ~2020-05-04 | XMS | Encounter Summary ---
Demographics + + + | Address | [address] | | | [place] [address] | + + + | Home Phone [...] + | Gene Gee | ECON | [address] | | | | | [place], | | | | | [place] [address] | | + + + + + Care Team Providers + +------+ + | Care Facility Environmental Technician Name | Role | Phone | + +------+ + | Antony Ribera MD | PCP | | + +------+ + Reason for Visit + +--------+ + | Reason | Onset | Comments | | | Date | | + +--------+ + | Refill Request | 05/19/ | | | | 2013 | | + +--------+ + Encounter Details +--------+--------+ + + + | Date | Type | Department | Care Team | Description | +--------+--------+ + + + | 05/19/ | Refill | Cardiology | Gary Fuentes MD | Refill Request | | 2013 | | Arrhythmia at [facility] | [address] | | | | | [address] | [address] [place], | | | | | [facility] | [place] [address] | | | | | and Healing, | [phone] | | | | | [facility] | | | | | | Floor [place], [place] | | | | | | [address] | | | | | | [phone] | | | +--------+--------+ + + + [...]
--- OUTSIDE RECORDS SUMMARY | ~2020-05-04 | XMS | Encounter Summary ---
Demographics + + + | Address | [address] | | | [place] [address] | + + + | Home Phone | | + + + | Preferred Language | Unknown | + + + | Marital Status | | + + + | Episcopalian Affiliation | 1013 | + + + | Race | White | + + + | Ethnic Group | Not or | + + + Author + + + | Author | [facility] | | | and [place] | + + + | Organization | [facility] | | [...] Team Providers + +------+ + | Care Detasseler Name | Role | Phone | + +------+ + | Alec Hill MD | PCP | | + +------+ + Encounter Details +--------+ + + + + | Date | Type | Department | Care Team | Description | +--------+ + + + + | 10/01/ | Orders Only | [facility] | Martin Kelley, | | | 2018 | | CARDIOLOGY ELIZA | [address] | | | | | [address] | [place], | | | | | [place] | [place] [address] | | | | | [address] | [phone] | | | | | [phone] | | | +--------+ + + + [...] | | | | | [place] [address] | | | | | | [phone] | | | | | | | | +--------+ + + + + | 05/19/ | Appointment | Cardiology | Martin Kelley, | | | 2019 | | | MD [address] | | | | | | [place] | | | | | | [place] [address] | | | | | | [phone] | | | | | | | | +--------+ + + + + | 11/26/ | Office | Cardiology | Martin Kelley, | | | 2020 | Visit | | [address] | | | | | | [place], | | | | | | [place] [address] | | | | | | [phone] | | | | | | | | +--------+ + + + + documented as of this encounter Visit Diagnoses Not on filedocumented in this encounter"
--- OUTSIDE RECORDS SUMMARY | ~2020-05-04 | XMS | Encounter Summary ---
Demographics + + + | Address | [address] | | | [place] [address] | + + + | Home Phone [...] + | Gene Gee | ECON | [address] | | | | | [place], | | | | | [place] [address] | | + + + + + Care Team Providers + +------+ + | Care Electrical Sign Servicer Name | Role | Phone | + +------+ + | Antony Ribera MD | PCP | | + +------+ + Reason for Visit + +--------+ + | Reason | Onset | Comments | | | Date | | + +--------+ + | Refill Request | 09/25/ | | | | 2008 | | + +--------+ + Encounter Details +--------+--------+ + + + | Date | Type | Department | Care Team | Description | +--------+--------+ + + + | 09/25/ | Refill | Cardiology General | Monique Middleton, | Refill Request | | 2008 | | at [facility] [address] | [employer]ATOR | | | | | [facility] | | | | | | Health and Healing, | | | | | | [facility] | | | | | | Floor [place], [place] | | | | | | [address] | | | | | | [phone] | | | +--------+--------+ + + + [...]
--- OUTSIDE RECORDS SUMMARY | ~2020-05-04 | XMS | Encounter Summary ---
Demographics + + + | Address | [address] | | | [place] [address] | + + + | Home Phone [...] + | Gene Sahil | ECON | [address] | | | | | [place], | | | | | [place] [address] | | + + + + + Care Team Providers + +------+ + | Care Seo Marketing Specialist Name | Role | Phone | + +------+ + | Antony Ribera MD | PCP | | + +------+ + Encounter Details +--------+ + + + + | Date | Type | Department | Care Team | Description | +--------+ + + + + | 07/05/ | Office | Hematology/Medical | Stevan Velazquez, | Progress Note | | 2006 | Visit-Trans | Oncology at [facility] | [address] | | | | purvi | [address] | [place], [place] | | | | | Mailcode: [facility] | [address] | | | | | [facility] | [phone] | | | | | and Healing, | | | | | | [facility] | | | | | | [place], [place] | | | | | | [address] | | | | | | [phone] | | | +--------+ + + + [...] documented as of this encounter Progress Notes Stevan Velazquez - 09/30/2007 7:01 AM [facility] [id number] SAHIL Holman [id number] Clinic Date: 07/05/2007 Clinic: Medical Oncology Clinic Adriana is a pleasant 61-year-old female with a history of right-sided breast cancer. She is status post right-sided simple mastectomy, sentinel mapping, and completion lymph node dissection for a T1c, N0 (isolated tumor cells) infiltrating ductal carcinoma. The tumor was grade 1 to grade 2, receptor positive and HER-2 negative for gene amplification by FISH. Two axillary lymph nodes were involved with isolated tumor cells only. Adriana is currently undergoing adjuvant chemotherapy with Taxotere plus Cytoxan. She received her first cycles of Taxotere and Cytoxan 5 weeks ago. She had another axillary surgery by Dr. Heart 3 weeks ago for a scarring in her right axilla. She is back here today with her for follow appointment. I spent 40 minutes with them, more than half of which was devoted to direct patient consultation. In addition to breast cancer, Adriana has a number of comorbidities. She has Sjogren's syndrome. In addition, she has cardiac arrhythmia and history of multiple abdominal surgeries. On an average, she is having one bout of ileus due to adhesion when here. Subjective: Overall, Adriana has been doing well. She has no pain from her surgery. Now she has excellent range of motion over her right shoulder. She still had some pooling/tightness sensation in her right armpit. There is no swelling over her right upper extremities. She has not got back to physical therapy yet although she is doing exercises on her own. Adriana had a busy week last week. Her 's [id number] with pancreatic cancer. She had a pancreatic cancer for 3 years and were traveling in the [place] area. Adriana had a skin lesion removed by Dr. Heart 3 weeks ago and came back positive for basal cell carcinoma. A re-excision was planned on July 22, 2007, for margin. Overall, Adriana is doing well. She has no fever or chills. She has a little cough but no sputum production. She denies sore throat. There is no shortness of breath, chest pain, or pressure. No abdominal pain. She denied nausea or vomiting. She is moving her bowels regularly. She has bowel a movement daily. There is no passage of bloody or tarry stool. She noted a little bit dryness in her eyes. She is using artificial tears 3 times a day. She denied pain in her eyes and there is no blurry or double vision. She has no body ache or bone pain. Her energy level has been good although she does feel worn out more easily at the end of the day. She denied numbness and tingling sensation over the tips of her fingers and her toes. There is headache. She has taken half a tablet of Ativan that helped her sleep quite well at night. She is currently taking dexamethasone 4 mg twice a day on the day before chemotherapy and the day after chemotherapies. On the day of chemotherapy, she takes 8 mg of dexamethasone IV before chemo, and she takes 4 mg at night p.o. We had an extensive discussion today regarding the risk and benefits of chemotherapy (see below). At the end, both Adriana and Gene indicated that they very much would like to continue with chemotherapies. Of note, right after her chemotherapy Adriana had an erythematous skin rash over upper chest and on her neck. It was itching in nature. She was seen by outside an heel slugger who felt that it was contact dermatitis. She was given topical antihistamine with good relief. She did not have any shortness of breath, swelling of her tongue, or tightness in her chest at that time. Observation: Her weight is stable at 68.6 kg, blood pressure 125/67, pulse rate is 93, temperature 97.4, pain score is 0, and her performance status is between 0 to 1. She is alert and oriented. She is not in acute distress. No oral lesions. No tenderness on percussion over her sinuses. Neck is supple. No jugular vein engorgement. Chest symmetric expansion. Breathing sound is clear. Heart regular rhythm. No murmur or gallop. Abdomen soft and nontender. No liver, spleen, or masses palpable. No increased rigidity or rebound tenderness. Her bowel sound is active. Extremities: No cyanosis, clubbing, or edema. She has excellent range of motion over her right shoulder. There is no swelling over her right arm or right hand. There is no knocking pain down her spinal column. No CV angle tenderness. Lymphatic: There is no supraclavicular, infraclavicular, axillary, or cervical lymphadenopathy palpable. Focus breast exam showed that her right breast is surgically missing. Well-healed transverse surgical scar noted on her right chest. In her axilla, 2 axillary scars were noted that were well healed. There are no open areas. No increased local heat, erythema, or tenderness. Neurological exam is intact. Laboratory Study: Her CBC today showed her white count is 11.1 with ANC at 8.7, hemoglobin 11.8, MCV 84, and platelet is 202. Her CMP today shows BUN 14, creatinine 0.4, alkaline phosphatase 60, ALT 8, AST 22, total bilirubin 3.4, and albumin 3.4. Assessment and Plan: Adriana is a pleasant 61-year-old female with a history of early-stage breast cancer. She is status post right-sided mastectomy and sentinel mapping and completion axillary lymph node dissection for T1c, N0 (isolated tumor cells) infiltrating ductal carcinoma. The tumor was grade 1 to grade 2. Two axillary nodes were found that had isolated tumor cells only. Adriana is currently undergoing adjuvant chemotherapy with Taxotere and Cytoxan. She tolerated her first treatment well. She had a skin rash that lasted for 5 days over her upper chest and around her neck which was attributed to contact dermatitis. This was managed with topical antihistamine with good relief by outside heel slugger. Adriana did not have febrile episode or constipation. Her body weight is stable without fluid accumulation, and she had a surgery by Dr. Heart 3 weeks ago for scarring her arm pit. She has since recovered from that surgery. Her wound healing is complete and she is ready for chemotherapies. I shared with Adriana and her a new piece of information that I learned from [facility] breast cancer conference that I attended 10 days ago. In this conference, the value of her recurrence score for postmenopausal patient with lymph node positive and estrogen receptor-positive breast cancers is presented. This is based on analysis of intergroup trial, INT-0100. This analysis is based on 367 patients that were part of a clinical trial. For patients with low recurrence scores, the risk of recurrence for a patient with tamoxifen alone is 40% versus 36% for a patient who received both tamoxifen and chemotherapies. The benefit of adding chemotherapy to tamoxifen therefore is very modest. The improvement in the risk reduction is only about 10% relatively. I shared this information with Adriana and her today. I had previously estimated that average benefit of chemotherapy is about 20%. Adriana indeed had a low recurrence score. Her recurrence score is such that her risk of disease recurrence after tamoxifen treatment is 6% over 10 years if we consider her disease as lymph node negative disease. Adriana is concerned however as 2 of her axillary nodes were involved with tiny amount of cancer cells. We have previously discussed the significance of the presence of isolated tumor cells in lymph node is not 100% established. Some studies suggest that isolated tumor cells would not increase the risk of recurrence but others suggest it might. The new piece of information we have from [facility] 10 days ago was that if we have low recurrence score the benefit of chemotherapy for a lymph node positive patient is again fairly modest. I had a fairly extensive discussion with Adriana and her today. Her absolute benefit from chemotherapy is likely lower than the 4% that I quoted them before. It is likely going to be on the 2% range. This can be easily negated by any toxicity that she may encounter with chemotherapies. Adriana, nonetheless, is very interested in chemotherapy. She wants to have extra peace of mind that everything possible has been done to reduce her risk of disease recurrence. She felt that she did fine with her first treatment, and she is willing to continue with additional rounds of chemotherapies. There is no neuropathy. In the end, I agreed to proceed although I did point out that if we run into any trouble in the future, we need to revisit our decision on chemotherapies. The benefit of chemotherapy appears to be very modest, we need to pay extra attention to minimizing any potential side effects. Adriana would receive her chemotherapy, and she will return tomorrow for Neulasta. She is going to increase her stool softener to avoid the development of constipation. We will see her back in 3 weeks for her third cycle of chemotherapy. Adriana and her , in particular her expressed understanding of our discussion today. Her used to be in the medical field himself, and he is well versed in reading medical literature. A copy of the abstract from [facility] conference is presented to them for their review. I will see them back in 3 weeks. Tricia Velazquez M.D., Ph.D. / [id number] / [id number] / [id number] / Electronically signed by Tricia Velazquez 09-29-2007 08:51:05 PM documented in this enco unter Plan of Treatment Not on filedocumented as of this encounter Visit Diagnoses Not on filedocumented in this encounter"
--- OUTSIDE RECORDS SUMMARY | ~2020-05-04 | XMS | Encounter Summary ---
Demographics + + + | Address | [address] | | | [place] [address] | + + + | Home Phone [...] + | Gene Gee | ECON | [address] | | | | | [place], | | | | | [place] [address] | | + + + + + Care Team Providers + +------+ + | Care Physician/Internist Name | Role | Phone | + +------+ + | Antony Ribera MD | PCP | | + +------+ + Reason for Visit + +--------+ + | Reason | Onset | Comments | | | Date | | + +--------+ + | Refill Request | 05/29/ | | | | 2018 | | + +--------+ + Encounter Details +--------+--------+ + + + | Date | Type | Department | Care Team | Description | +--------+--------+ + + + | 05/29/ | Refill | Pulmonary & | Juana Kilgore MD | Refill Request | | 2018 | | Critical Care | [address] | | | | | Medicine at | [address] [place], | | | | | [facility] | [place] [address] | | | | | [address] | [phone] | | | | | [facility] | | | | | | [place], [address]rd Floor | | | | | | [place], [place] | | | | | | [address] | | | | | | [phone] | | | +--------+--------+ + + + [...] this encounter Miscellaneous Notes Telephone Encounter - Loreta Donovan MA - 05/29/2018 11:28 AM PSTFormatting of this note shane ht be different from the original. REFILL REQUEST DATE: May 29, 2018 PATIENT: Adriana Flynn [id number] MESSAGE: On current med list Requested Prescriptions Pending Prescriptions Disp Refills fluticasone (FLONASE) 50 mcg/actuation nasal spray,suspension 16 each 5 Sig: Instill 1 spray into each nostril two times daily. LAST APPOINTMENT: 10/24/17 at 3:40 pm NEXT APPOINTMENT: No future appointments scheduled in Pulmonary Disease. Patient's pharmacy has been verified: Yes [id number] [place] [address] documented in this encou nter Plan of Treatment Not on filedocumented as of this encounter Visit Diagnoses + + | Diagnosis | + + | Chronic sinusitis, unspecified location | + + documented in this encounter"
--- OUTSIDE RECORDS SUMMARY | ~2020-05-04 | XMS | Encounter Summary ---
Demographics + + + | Address | [address] | | | [place] [address] | + + + | Home Phone [...] + | Gene Gee | ECON | [address] | | | | | [place], | | | | | [place] [address] | | + + + + + Care Team Providers + +------+ + | Care Instructor Bridge Name | Role | Phone | + +------+ + | Antony Ribera MD | PCP | | + +------+ + Encounter Details +--------+ + + + + | Date | Type | Department | Care Team | Description | +--------+ + + + + | 06/24/ | Abstract | Cardiology | Gary Fuentes MD | | | 2011 | | Arrhythmia at [facility] | [address] | | | | | [address] | [address] [facility] | | | | | [facility] | [place] [address] | | | | | and Healing, | [phone] | | | | | | | | | | | Floor [place], [place] | | | | | | [address] | | | | | | [phone] | | | +--------+ + + + [...]
--- OUTSIDE RECORDS SUMMARY | ~2020-05-04 | XMS | Encounter Summary ---
Demographics + + + | Address | [address] | | | [place] [address] | + + + | Home Phone [...] + | Gene Gee | ECON | [address] | | | | | [place], | | | | | [place] [address] | | + + + + + Care Team Providers + +------+ + | Care Research Spec Name | Role | Phone | + +------+ + | Antony Ribera MD | PCP | | + +------+ + Encounter Details +--------+ + + + + | Date | Type | Department | Care Team | Description | +--------+ + + + + | 05/22/ | Abstract | Cardiology | Monique Middleton, | | | 2012 | | Arrhythmia at [facility] | [facility] | | | | | [address] | | | | | | [place] for [facility] | | | | | | and Healing, | | | | | | Building | | | | | | Floor [place], [place] | | | | | | [address] | | | | | | [phone] | | | +--------+ + + + [...]
--- OUTSIDE RECORDS SUMMARY | ~2020-05-04 | XMS | Encounter Summary ---
Demographics + + + | Address | [address] | | | [place] [address] | + + + | Home Phone [...] + | Gene Gee | ECON | [address] | | | | | [place], | | | | | [place] [address] | | + + + + + Care Team Providers + +------+ + | Care Automatic Edger Name | Role | Phone | + +------+ + | Alec Hill MD | PCP | | + +------+ + Encounter Details +--------+---------+ + + + | Date | Type | Department | Care Team | Description | +--------+---------+ + + + | 11/27/ | Office | Pulmonary & | Juana Kilgore MD | Moderate persistent | | 2019 | Visit | Critical Care | [address] | asthma without | | | | Medicine at | [facility], | complication | | | | [facility] | [place] [address] | (Primary Dx) | | | | [address] | [phone] | | | | | [address] [facility] | | | | | | [address], 3rd Floor | | | | | | [place], [place] | | | | | | [address] | | | | | | [phone] | | | +--------+---------+ + + + [...] + + + | Blood Pressure | 141/67 | 11/27/2018 10:20 AM | | | | | PDT | | + + + + + | Pulse | 60 | 11/27/2018 10:20 AM | | | | | PDT | | + + + + + | Temperature | 36.1 C (97 F) | 11/27/2018 10:20 AM | | | | | PDT | | + + + + + | Respiratory Rate | 16 | 11/27/2018 10:20 AM | | | | | PDT | | + + + + + | Oxygen Saturation | 98% | 11/27/2018 10:20 AM | | | | | PDT | | + + + + + | Inhaled Oxygen | - | - | | | Concentration | | | | + + + + + | Weight | 65.2 kg (143 lb 11.8 | 11/27/2018 10:20 AM | | | | oz) | PDT | | + + + + + | Height | 165.5 cm (5' 5.16") | 11/27/2018 10:20 AM | | | | | PDT | | + + + + + | Body Mass Index | 23.8 | 11/27/2018 10:20 AM | | | | | PDT | | + + + + + documented in this encounter Patient Instructions Patient Instructions Juana Kilgore MD - 11/27/2018 10:50 AM PDTWhat is my diagnosis/What a m I being treated for? - asthma What is my plan for today s visit (what tests I have to do when I leave, how am I suppose d to use my medications)? - call our office and let us know if your insurance won't cover pulmicort, and we will find a replacement - try cetirizine (generic Zyrtec) for allergies rather than loratadine (claritin) - take your pulmicort twice a day to control your asthma symptoms What is the name of the doctor I saw today? -Juana Kilgore MD How do I get in touch with the doctor(s) in case I have a question? -Call [phone] We recommend signing up for [employer] our secure online messaging system that will allow you to communicate with your provider electronically. Directions for signing up are included in this packet. My Chart is an excellent way to ask questions and get advice about non-urgent problems. For more pressing concerns, call our office. In the event of an medical emergency you shou ld call 911 or present to the nearest Emergency Room. documented in this encounter Progress Notes Juana Kilgore MD - 11/27/2018 10:50 AM PDT Chief Complaint / ID: 73 year old woman with moderate persistent to severe persistent asth ma Interval History: Ms Flynn returns to pulmonary clinic for management of asthma. She was la st seen by me in 10/2017. At that time, she was doing relatively well but had had influenza t he prior winter which led to a prolonged hospitalization for heart failure and A. fib with R VR. Her pulmonary history is also notable for Sjogren syndrome and prior PE. Her regimen is currently: - pulmicort- 1 puffs per day - tiotropium 2.5 mcg 1 inhalation daily - levalbuterol prn - as needed - ipratropium prn - again, as needed - fluticasone and ipratropium nasal spray BID - has been using prednisone if needed for exacerbations given challenges of getting timely care where she lives - She did not tolerate montelukast, and zileuton was prohibitively expensive. Since last visit, she has done well. No flu this winter! She feels like her asthma has bee n flaring recently, which is typical for her in the spring and fall. She is using the drugs above, notably, Pulmicort only once a day. She has many questions today about her asthma r egimen, including which her controller and wish her rescue medications. She just saw her ca rdiologist in the [facility], with adjustment of her antiarrhythmics and her anticoagul ation for A. fib. Immunization History Administered Date(s) Administered Influenza, injectable, quadrivalent, preservative free (IIV4) 08/07/2018 Influenza, seasonal, intradermal, preservative free 05/03/2017 Influenza, split 04/17/2008 Pneumococcal 23 05/03/2017 # Prevnar 03/2015 Past medical, surgical and social history were reviewed and are unchanged except as noted red aburto. [facility] Past Medical History Diagnosis Date Fibromyalgia 1995 Mitral valve prolapse 1989 GERD (gastroesophageal reflux disease) 1995 TMJ (dislocation of temporomandibular joint) Skin cancer back Small bowel obstruction (HCC) 07/20,10/19,02/19 Bursitis 2005 Plantar fascial fibromatosis 2007 plantar fascial tear Breast cancer (HCC) 02/2007 s/p chemo with taxotere/cytoxan Shingles Pulmonary embolus (HCC) 09/2008 # A fib - on dofetilide, bisoprolol, apixaban for CHADS2 VASC of 3 (Dr Martin Kelley in [facility]) # Osteoporosis - on reclast through [facility] endocrinology (Dr Horowitz) # Asthma - see above # PE - while getting treated for breast cancer Medications Current Outpatient Medications Medication Sig apixaban (ELIQUIS) 5 mg oral tablet Take 5 mg by mouth two times daily. bisoprolol 5 mg oral tablet Take 5 mg by mouth two times daily. calcium citrate-vitamin [...] Do NOT open caps ule. Swallow whole. dofetilide 250 mcg oral capsule Take 250 mcg by mouth two times daily. ezetimibe (ZETIA) [...] nostril three roxie es daily. lactobac cmb #0-rit-nuqxpiggwl 300-250 million cell-mg oral capsule Take by mouth once daily. levalbuterol 1.25 mg/3 mL inhalation solution for nebulization Inhale 3 mL every six ho urs as needed (shortness of breath). Indications: Acute Asthma Attack levalbuterol 45 mcg/actuation inhalation HFA aerosol inhaler Inhale 1-2 puffs by mouth every six hours as needed. Indications: Bronchospasm Prevention LORAZEPAM 1 mg Oral tablet Take 0.5 [...] 10 mEq oral tablet extended release Take 10 mEq by candido th once daily. PULMICORT FLEXHALER 180 mcg/actuation inhalation aerosol powdr breath activated INHALE THREE PUFFS BY MOUTH TWICE A DAY rabeprazole (ACIPHEX) 20 mg Oral Tablet, Delayed Release (E.C.) Take 20 mg by mouth wyatt ry twelve hours. SPIRIVA RESPIMAT 2.5 mcg/actuation inhalation mist Inhale 1 puff once daily. tiotropium 1.25 mcg/actuation inhalation mist Inhale 2 puffs once daily. Indications: M aintenance Therapy for Asthma Vitamin A-Vitamin C-Vit E-Min (ANTIOXIDANT FORMULA) Oral Capsule take 1 capsule by oral route once daily with food No current facility-administered medications for this visit. ROS Constitutional: intentionally lost 10 lbs per her eyeglass lens cutter HEENT: dry eyes, nose bothering her -- saw PCP Lymph: No adenopathy Cardiac: see above Pulm: see above GI: GERD controlled on medications, elevates head of bed : nocturia Skin: no rashes Heme: No bleeding Physical Exam BP 141/67 | Pulse 60 | Temp 36.1 C (97 F) (Bladder) | Resp 16 | Ht 1.655 m (5' 5.16 ") | Wt 65.2 kg (143 lb 11.8 oz) | SpO2 98% | BMI 23.80 kg/m | BSA 1.73 m Well-appearing elderly woman in no distress No icterus, no oral lesions No cervical or supraclavicular adenopathy Regular rate and rhythm Breathing and speaking easily on room air. Her lungs are clear to auscultation, without rh onchi, crackles, or wheezes Abdomen is nondistended No peripheral edema, cyanosis, or clubbing Normal-appearing wrists and MCPs Normal affect Data Reviewed Today PFTs Ped Pre Spirometry Latest Ref Rng & Units 10/24/2017 10/02/2016 10/22/2012 FVC PRE 2.97 L 2.37 2.32 2.69 FVC PRE (%REF) % 79 76 82 FEV1 PRE 2.23 L 1.76 1.63 1.75 FEV1 PRE (%REF) % 78 71 70 FEV1/FVC PRE 75 % 74 70 65 FEV1/FVC PRE (%REF) % 99 93 - OAW62-81% PRE 1.76 L/sec 1.26 0.98 0.89 KKD04-98% PRE (%REF) % 71 53 43 PEF PRE 5.47 L/sec 6.43 5.52 6.52 PEF PRE (%REF) % 117 99 108 PFT's Lung Volumes TLC Pre TLC % RV Pre RV % DLCO Adj Pre DLCO Adj % 6 Minute Walk 10/24/17 1035 4.64 89 2.20 94 17.84 87 IMPRESSION The patient is a 73-year-old woman with a long history of asthma as well as difficult to co ntrol atrial fibrillation who presents today with recent increase in seasonal allergies as w ell as intermittent respiratory symptoms which are typical of her asthma. While today she i s not in distress and does not have any wheezing, I will give her the benefit of the doubt a nd not de-escalate any of her medications. Of note, she is not really on an adequate asthma regimen right now, given that she is only taking Pulmicort once a day. I do not think she needs escalation in therapy given this. Today, I spent the bulk of the visit reviewing her medications and highlighting which are h er controller meds and which are her rescue meds. RECOMMENDATIONS & PLAN 1. Take 2 puffs of Pulmicort twice daily and continue Spiriva once daily 2. I refilled her controller and rescue medications and reviewed how she should use the re scue medications 3. Advised cetirizine rather than loratadine for her seasonal allergies, and she should co ntinue a nasal corticosteroid 4. No additional vaccinations needed at this time as she is up-to-date 5. Clarified that we should keep Pulmicort at 2 puffs twice daily rather than 3 because of her osteoporosis Return to clinic in 1 year. If control is improved, would like to step down her therapy. Juana Kilgore MD PULMONARY & CRITICAL CARE MEDICINE AT [address] Mailcode: [id number] [place] [address] documented in this enco unter Plan of Treatment Not on filedocumented as of this encounter Visit Diagnoses + + | Diagnosis | + + | Moderate persistent asthma without complication - Primary Unspecified asthma | + + documented in this encounter
--- OUTSIDE RECORDS SUMMARY | ~2020-05-04 | XMS | Encounter Summary ---
Demographics + + + | Address | [address] | | | [place] [address] | + + + | Home Phone [...] + | Gene Gee | ECON | [address] | | | | | [place], | | | | | [place] [address] | | + + + + + Care Team Providers + +------+ + | Care Senior Private Client Advisor Name | Role | Phone | + +------+ + | Antony Ribera MD | PCP | | + +------+ + Reason for Visit + +--------+ + | Reason | Onset | Comments | | | Date | | + +--------+ + | Follow-up in | 05/06/ | | | outpatient clinic | 2011 | | + +--------+ + Encounter Details +--------+ + + + + | Date | Type | Department | Care Team | Description | +--------+ + + + + | 05/06/ | Telephone | Surgical Oncology | Zak Roque, | Follow-up in | | 2011 | | at [facility] [address] | | outpatient clinic | | | | [facility] | | | | | | Health and Healing, | | | | | | [address] | | | | | | [place], [place] | | | | | | [address] | | | | | | [phone] | | | +--------+ + + + [...] this encounter Miscellaneous Notes Telephone Encounter - Zak Roque MD - 05/06/2012 11:22 AM PDTPHONE CALL Called and discussed CT results with patient: CT ABDOMEN WWO CONTRAST (no units) Date Value Range Status 05/03/2012 Final Value: Unenhanced, arterial, portal venous and [address] with 100 cc IV Isovue. Comparison: 04/02/2008 History: Hepatic cysts, previous resection. FINDINGS: Lung bases are clear. Absent right breast from prior mastectomy. There are scattered simple and minimally complex hepatic cysts, a few of which have increased in size, up to 3.5 cm in maximal diameter, previously 2 cm with some exhibiting thin septations and punctate cyst wall calcifications. Medial segment volume loss and scarring with capsular retraction corresponds to prior cyst resection site. Hepatic dome linear bandlike scarring and lobulation of the liver contour represents additional wedge resection site. Scattered nonspecific subcentimeter peripheral and subcapsular low level arterial phase enhancing foci, likely represent perfusional abnormalities. No findings of underlying chronic liver disease. Mild ectasia of the central intrahepatic and extrahepatic duct tapers gradually at the ampulla. Gallbladder surgically absent. Uncomplicated pancreas divisum. Spleen and adrenal glands are normal. Left upper pole wedge-shaped scarring in capsular retraction with underlying focal caliectasis incidentally noted. No suspect cystic or solid renal mass. Left para-aortic prominent venous collaterals drain into the IVC and appeared to communicate with the left renal vein. There is no ascites or adenopathy. Visualized bowel is unremarkable. No suspicious osseous lesion. IMPRESSION: Scattered hepatic cysts, some showing interval enlargement over 4 years, up to maximal diameter of 3.5 cm.. Attending Radiologists: Carol Santos M.D. Author: Carol Santos M.D. I have personally viewed this procedure/exam, reviewed this report, and made changes to it where appropriate. Final/Electronically signed / Carol Santos 05/03/2012 13:27 PM Hepatic cysts would be very unlikely to be causing her symptoms. She was provided with reas surance. No further testing or surgery is needed at this time. She was happy with the news a nd will proceed with her breast reconstruction. She will call should she have any questions or concerns, or recurrence of her symptoms. Adriana Flynn participated in the decision [facility] process and agreed with the plan of care. All questions were sought and answered. Zak Roque MD Surgical Oncology Fellow MailCode L[address] [place], [place] [address] Pager [phone] Zak Roque MD Surgical Oncology Fellow [address] [place], [place] [address] Pager [phone] documented in this en counter Plan of Treatment Not on filedocumented as of this encounter Visit Diagnoses Not on filedocumented in this encounter"
--- OUTSIDE RECORDS SUMMARY | ~2020-05-04 | XMS | Encounter Summary ---
Demographics + + + | Address | [address] | | | [place] [address] | + + + | Home Phone [...] + | Gene Gee | ECON | [address] | | | | | [place], | | | | | [place] [address] | | + + + + + Care Team Providers + +------+ + | Care Loss Mitigation Specialist Name | Role | Phone | + +------+ + | Antony Ribera MD | PCP | | + +------+ + Encounter Details +--------+ + + + + | Date | Type | Department | Care Team | Description | +--------+ + + + + | 08/21/ | MyChart | Cardiology | Elijah Whalen, | ECG that was faxed | | 2017 | Encounter | Arrhythmia at [facility] | [address] | | | | | [address] | [address] | | | | | [facility] | [place], [place] | | | | | and Healing, | [address] | | | | | | [phone] | | | | | Floor [place], [place] | | | | | | [address] | | | | | | [phone] | | | +--------+ + + + [...]
--- OUTSIDE RECORDS SUMMARY | ~2020-05-04 | XMS | Encounter Summary ---
Demographics + + + | Address | [address] | | | [place] [address] | + + + | Home Phone [...] + | Gene Gee | ECON | [address] | | | | | [place], | | | | | [place] [address] | | + + + + + Care Team Providers + +------+ + | Care Senior Director Insight Name | Role | Phone | + +------+ + | Antony Ribera MD | PCP | | + +------+ + Reason for Visit + +--------+ + | Reason | Onset | Comments | | | Date | | + +--------+ + | Refill Request | 07/28/ | | | | 2009 | | + +--------+ + Encounter Details +--------+--------+ + + + | Date | Type | Department | Care Team | Description | +--------+--------+ + + + | 07/28/ | Refill | Cardiology | Gary Fuentes MD | Refill Request | | 2009 | | Arrhythmia at [facility] | [address] | | | | | [address] | [address] [place], | | | | | [facility] | [place] [address] | | | | | and Healing, | [phone] | | | | | [facility] | | | | | | Floor [place], [place] | | | | | | [address] | | | | | | [phone] | | | +--------+--------+ + + + [...]
--- OUTSIDE RECORDS SUMMARY | ~2020-05-04 | XMS | Encounter Summary ---
Demographics + + + | Address | [address] | | | [place] [address] | + + + | Home Phone [...] + | Gene Gee | ECON | [address] | | | | | [place], | | | | | [place] [address] | | + + + + + Care Team Providers + +------+ + | Care Software Engineering Analyst Name | Role | Phone | [...] + + | 12/28/ | Office | Bone Density at | | Other Osteoporosis | | 2008 | Visit | [facility] [address] | | | | | | [facility] | | | | | | and Healing, | | | | | | [address] | | | | | | [place], [place] | | | | | | [address] | | | | | | [phone] | | | +--------+---------+ + + + [...] of this encounter Progress Kendra Guerrero - 01/04/2009 11:10 AM PDTBone density scans performed. Please see the Inter pretation Report, located in chart Review, under the Media tab. documented in this encount er Procedure Notes Unknown - 12/28/2008 12:00 AM PDTAssociated Order(s): BONE DENSITOMETRY documented in this encounter Plan of Treatment + +---------+--------+ + + | Name | Type | Priori | Associated Diagnoses | Order Schedule | | | | ty | | | + +---------+--------+ + + | IA DXA BONE DENSITY, | Imaging | Routin | Other Osteoporosis | Ordered: 01/04/2009 | | AXIAL | | e | | | + +---------+--------+ + + documented as of this encounter Procedures + +--------+ + + + | Procedure Name | Priori | Date/Time | Associated Diagnosis | Comments | | | ty | | | | + +--------+ + + + | BONE DENSITOMETRY | | 12/28/2008 | | Results for this | | | | 12:00 AM | | procedure are in the | | | | PDT | | results section. | + +--------+ + + + | BONE DENSITOMETRY | | 12/28/2008 | | Results for this | | | | 12:00 AM | | procedure are in the | | | | PDT | | results section. | + +--------+ + + + | DIAGNOSTIC STUDIES | | 12/28/2008 | | Results for this | | | | 12:00 AM | | procedure are in the | | | | PDT | | results section. | + +--------+ + + + documented in this encounter Results BONE DENSITOMETRY (12/28/2008 12:00 AM PDT) + + + | Narrative | Performed At | + + + | Ordered by an | | | unspecified provider. | | + + + + + | Transcriptions | + + | 12/28/2008 12:00 AM PDT | | | + + BONE DENSITOMETRY (12/28/2008 12:00 AM PDT) + + + | Narrative | Performed At | + + + | A scan was | | | deleted from the Results section by P Mary [[email or web address]] on | | | 05/18/2009 at 4:45 PM (File: [id number] | | + + + DIAGNOSTIC STUDIES (12/28/2008 12:00 AM PDT) + + + | Narrative | Performed At | + + + | A scan was | | | deleted from the Results section by P Interface [[id number]] on | | | 02/22/2009 at 8:59 AM (File: [id number]) | | + + + documented in this encounter Visit Diagnoses + + | Diagnosis | + + | Other osteoporosis | + + documented in this encounter"
--- OUTSIDE RECORDS SUMMARY | ~2020-05-04 | XMS | Encounter Summary ---
Demographics + + + | Address | [address] | | | [place] [address] | + + + | Home Phone [...] + | Gene Gee | ECON | [address] | | | | | [place], | | | | | [place] [address] | | + + + + + Care Team Providers + +------+ + | Care Ash Collector Name | Role | Phone | + +------+ + | Antony Ribera MD | PCP | | + +------+ + Encounter Details +--------+ + + + + | Date | Type | Department | Care Team | Description | +--------+ + + + + | 09/30/ | MyChart | Pulmonary & | Thalia Barnard, | RE:vaccines | | 2015 | Encounter | Critical Care | [facility] | | | | | Medicine at | Pulmonary [place] | | | | | [facility] [place] | [address] | | | | | [address] | [address] [place], | | | | | Loop [facility] | [place] [address] | | | | | [place], 3rd Floor | [phone] | | | | | [place] | | | | | | [address] | | | | | | [phone] | | | +--------+ + + + [...]
--- OUTSIDE RECORDS SUMMARY | ~2020-05-04 | XMS | Encounter Summary ---
Demographics + + + | Address | [address] | | | [place] [address] | + + + | Home Phone [...] + | Gene Gee | ECON | [address] | | | | | [place], | | | | | [place] [address] | | + + + + + Care Team Providers + +------+ + | Care Furrier Shop Supervisor Name | Role | Phone | + +------+ + | Alec Hill MD | PCP | | + +------+ + Encounter Details +--------+ + + + + | Date | Type | Department | Care Team | Description | +--------+ + + + + | 08/01/ | Fabrication Supervisor | John [facility] | Tapan Horowitz MD | Age-related | | 2020 | | [facility] | [address] | osteoporosis without | | | | Center at [facility] | [facility], | current | | | | [address] | [place] [address] | pathological | | | | [address] | [phone] | fracture (Primary | | | | [facility] [place] | | Dx) | | | | Physician's | | | | | | [place], | | | | | | [place] [address] | | | | | | [phone] | | | +--------+ + + + [...] | | + +---------+--------+ + + | BONE DENSITOMETRY | Imaging | Routin | Age-related | Expected: | | | | e | osteoporosis without | 08/01/2019, Expires: | | | | | current | 01/29/2021 | | | | | pathological | | | | | | fracture | | + +---------+--------+ + + documented as of this encounter Visit Diagnoses + + | Diagnosis | + + | Age-related osteoporosis without current pathological fracture - Primary Senile | | osteoporosis | + + documented in this encounter"
--- OUTSIDE RECORDS SUMMARY | ~2020-05-04 | XMS | Encounter Summary ---
Demographics + + + | Address | [address] | | | [place] [address] | + + + | Home Phone [...] + | Gene Gee | ECON | [address] | | | | | [place], | | | | | [place] [address] | | + + + + + Care Team Providers + +------+ + | Care Driver Starting Gate Name | Role | Phone | + [...] | | | Surgery | Varicose | Katheryn | [facility] | | | | | veins | MD Bradley | [address] | | | | | Procedures | [address] | [address] [place] | | | | | CONSULT TO | Ave | for Health | | | | | SURGERY - | [place], [place] | and Healing, | | | | | VASCULAR | [address] | [address], | | | | | | Phone: | 5th Floor | | | | | | [phone] | [place], [place] | | | | | | Fax: | [address] | | | | | | [phone] | Phone: | | | | | | | [phone] | | | | | | | Fax: | | | | | | | [phone] | +--------+--------+ + + + + Encounter Details +--------+ + + + + | Date | Type | Department | Care Team | Description | +--------+ + + + + | 05/21/ | MyChart | Hematology/Medical | Katheryn, | RE: referral to | | 2008 | Encounter | Oncology at [facility] | MD [address] | vascular doctor | | | | [address] | [address] [place], | | | | | Mailcode: [id number] | [place] [address] | | | | | [place] for [facility] | [phone] | | | | | and Healing, | | | | | | [address], [address]th | | | | | | Floor [place], [place] | | | | | | [address] | | | | | | [phone] | | | +--------+ + + + [...] Diagnosis | + + | Varicose veins - Primary Asymptomatic varicose veins | + + documented in this encounter"
--- OUTSIDE RECORDS SUMMARY | ~2020-05-04 | XMS | Encounter Summary ---
Demographics + + + | Address | [address] | | | [place] [address] | + + + | Home Phone [...] + | Gene Gee | ECON | [address] | | | | | [place], | | | | | [place] [address] | | + + + + + Care Team Providers + +------+ + | Care Associate Designer Name | Role | Phone | + +------+ + | Antony Ribera MD | PCP | | + +------+ + Encounter Details +--------+ + + + + | Date | Type | Department | Care Team | Description | +--------+ + + + + | 11/06/ | House Servant | Surgical Oncology | [facility], | Lymphedema; | | 2007 | | at [facility] [address] | MD [address] | Carcinoma in Situ of | | | | Ave [facility] for | [place], [place] | Breast | | | | Health and Healing, | [address] | | | | | Building [address] | [phone] | | | | | [place], [place] | | | | | | [address] | | | | | | [phone] | | | +--------+ + + + [...] Telephone Encounter - Claribel Garza - 11/07/2007 10:11 AM PDTPt called for an order for h er PT for Lymphedemia.. There is Occupational therapist near where she lives that she would like to see. Altagracia Heard Occupational Therapist Please call pt at [phone] Order refaxed. documented in this encounter Plan of Treatment Not on filedocumented as of this encounter Visit Diagnoses + + | Diagnosis | + + | Lymphedema Other lymphedema | + + | Carcinoma in situ of breast | + + documented in this encounter"
--- OUTSIDE RECORDS SUMMARY | ~2020-05-04 | XMS | Encounter Summary ---
Demographics + + + | Address | [address] | | | [place] [address] | + + + | Home Phone [...] + | Gene Gee | ECON | [address] | | | | | [place], | | | | | [place] [address] | | + + + + + Care Team Providers + +------+ + | Care Tile Machine Operator Name | Role | Phone | + +------+ + | Antony Ribera MD | PCP | | + +------+ + Encounter Details +--------+---------+ + + + | Date | Type | Department | Care Team | Description | +--------+---------+ + + + | 11/14/ | Office | Cardiology | Elijah Whalen, | Atrial tachycardia | | 2017 | Visit | Arrhythmia at [facility] | [address] | ([facility]) (Primary Dx); | | | | [address] | [address] | Paroxysmal atrial | | | | [place] [facility] | [place], [place] | fibrillation ([facility]) | | | | and Healing, | [address] | | | | | [facility] | [phone] | | | | | Floor [place], [place] | | | | | | [address] | | | | | | [phone] | | | +--------+---------+ + + + [...] + + + | Blood Pressure | 126/60 | 11/14/2016 10:03 AM | | | | | PDT | | + + + + + | Pulse | 74 | 11/14/2016 10:03 AM | | | | | PDT | | + + + + + | Temperature | - | - | | + + + + + | Respiratory Rate | - | - | | + + + + + | Oxygen Saturation | 100% | 11/14/2016 10:03 AM | | | | | PDT | | + + + + + | Inhaled Oxygen | - | - | | | Concentration | | | | + + + + + | Weight | 71.2 kg (157 lb) | 11/14/2016 10:03 AM | | | | | PDT | | + + + + + | Height | 166.4 cm (5' 5.5") | 11/14/2016 10:03 AM | | | | | PDT | | + + + + + | Body Mass Index | 25.73 | 11/14/2016 10:03 AM | | | | | PDT | | + + + + + documented in this encounter Patient Instructions Patient Instructions Elijah Whalen MD - 11/14/2016 10:00 AM PDTPlease wear the monitor f or a month. Press the button for symptoms bothersome enough that you would want to have an a blation. I'll contact you after I've read it so we can discuss next steps The medication we discussed as an alternative is sotalol Elijah Whalen MD Cardiovascular Medicine - Electrophysiology [facility] [place] [facility] Electronically signed by Elijah Whalen MD at 08/2016 10:44 AM PDT documented in this encounter Progress Notes Elijah Whalen MD - 11/14/2016 10:00 AM PDTFormatting of this note might be different fro m the original. Arrhythmia Clinic Follow-up Past Medical History: Diagnosis Date Asthma 1999 Atrial tachycardia (HCC) 07/20 also episode in setting of Olga virus in 05/2012 which was thougth to be AF, but likely just AT. Atrial tachycardia (HCC) RA stacey tach ablated 2004 at [facility]. Repeat EPS showed only non-sustained left atrial [...] (HCC) 07/20,10/19,02/19 TMJ (dislocation of temporomandibular joint) Patient Active Problem List Diagnosis Date Noted Asthma 02/03/2014 Extrinsic asthma 10/27/2012 Overview Note: ICD10 History of DVT (deep vein thrombosis) 06/26/2012 Thyroid nodule 12/29/2008 Overview Note: May 2011 US: Scattered sub-cm nodules December 2008 US: 5 mm Right cyst Sjogren's syndrome (HCC) 09/08/2008 Breast cancer (HCC) 05/21/2008 Disorder of bone and cartilage 12/30/2007 Overview Note: Reclast [id number] DXA 06/02/15: L -1.6 H -1.9 DXA [...] nostril three roxie es daily. lactobac b #2-xmy-amkrqtcjzs 300-250 million cell-mg oral capsule Take by [...] for follow-up with her Deepak. She notes continued daily palpit ations that are somewhat bothersome. No sustained palpitations aside from atrial fibrillatio n which was captured on Ziopatch at the time of a recent illness. No chest/arm/neck discomfo rts, orthopnea, PND, lower extremity edema, light-headedness or syncope. Comprehensive ROS as above, otherwise negative O: BP 126/60 | Pulse 74 | Ht 1.664 m (5' 5.5") | Wt 71.2 kg (157 lb) | SpO2 100% | BMI 25.7 3 kg/(m^2) Heart: RRR without murmur rub or gallop. Normal S1 and S2. CVP normal by neck veins. Lungs: clear to auscultation bilaterally Abdomen: soft, NT/ND without bruits or organomegally. Extremities: warm without edema. ECG today. Sinus rhythm 72. Cannot likely lead placement causing Qs V1 and V2 Assessment: 1 - Atrial tachycardia - S/p successful ablation of stacey tach 2004. Second EPS for recurrent PSVT showed only n on-sustained LA tach - Did not tolerate Class Ic agent (GI issues). Partially suppressed with dofetilide. We di scontinued it to see how bothersome her symptoms were off. They appear to worsen somewhat 2 - Paroxysmal atrial fibrillation. - Confirmed on Ziopatch after an illnesses - Unclear how much of her symptoms is from atrial fibrillation versus PACs versus a PSVT - CHADS 2 Score: 0 CHADS2-VASC Score: 2 HAS-BLED Score: 1. In balance in this case, most appropriate antithrombotic treatment is anticoagulation. She is currently taking rivaroxaba without thromboembolism or major bleeding. 3 - History of DVT/PE during treatment for cancer. Reportedly considered as "provoked" and therefore warfarin has been discontinued Her palpitations are bothersome enough that she would like to consider ablation versus rein itiation of an antiarrhythmic agent. Recommendations/Plans: 1 - 30 day event monitor. I asked her to press the button only for symptoms bothersome enou gh to warrant ablation. 2 - depending on results, we will either continue current therapy, initiate sotalol with 48 hour hospitalization, or proceeding to ablation Elijah Whalen MD Cardiovascular Medicine - Electrophysiology [facility] [place] [facility] documented in this en counter Plan of Treatment + +------+--------+ + + | Name | Type | Priori | Associated Diagnoses | Order Schedule | | | | ty | | | + +------+--------+ + + | 30 DAY CARDIAC | ECG | Routin | Atrial tachycardia | Ordered: 11/14/2016 | | MONITOR - ECG | | e | ([facility]) Paroxysmal | | | | | | atrial fibrillation | | | | | | ([facility]) | | + +------+--------+ + + documented as of this encounter Procedures + +--------+ + + + | Procedure Name | Priori | Date/Time | Associated Diagnosis | Comments | | | ty | | | | + +--------+ + + + | 12 LEAD ECG | Routin | 11/14/2016 | Atrial tachycardia | Results for this | | | e | 9:59 AM | (HCC) | procedure are in the | | | | PDT | | results section. | + +--------+ + + + documented in this encounter Results 12 LEAD ECG (11/14/2016 9:59 AM PDT) + + + + + + | Component | Value | Ref Range | Performed | Pathologist | | | | | At | Signature | + + + + + + | VENTRICULAR | 72 | bpm | [facility] | | | RATE | | | OF | | | | | | CARDIOLOGY | | + + + + + + | ATRIAL RATE | 72 | ms | [facility] | | | | | | OF | | | | | | CARDIOLOGY | | + + + + + + | P-R | 164 | ms | [facility] | | | INTERVAL | | | OF | | | | | | CARDIOLOGY | | + + + + + + | P AXIS | 76 | deg | [facility] | | | | | | OF | | | | | | CARDIOLOGY | | + + + + + + | QRS | 98 | ms | [facility] | | | DURATION | | | OF | | | | | | CARDIOLOGY | | + + + + + + | QT | 416 | ms | [facility] | | | | | | OF | | | | | | CARDIOLOGY | | + + + + + + | QTC-ROBTT | 456 | ms | [facility] | | | | | | OF | | | | | | CARDIOLOGY | | + + + + + + | R AXIS | -12 | deg | [facility] | | | | | | OF | | | | | | CARDIOLOGY | | + + + + + + | T AXIS | 18 | deg | [facility] | | | | | | OF | | | | | | CARDIOLOGY | | + + + + + + | ECG | SINUS RHYTHM | | [facility] | | | IMPRESSION | | | OF | | | | | | CARDIOLOGY | | + + + + + + | ECG | CONSIDER ANTEROSEPTAL | | [facility] | | | IMPRESSION | INFARCT- ABNORMAL ECG - | | OF | | | | | | CARDIOLOGY | | + + + + + + | ECG | Electronically signed | | [facility] | | | IMPRESSION | by: MIK CATALAN | | OF | | | | 11-14-2016 10:18:24 | | CARDIOLOGY | | + + [...] [facility] | [address] | [place], [place] | | | CARDIOLOGY | [address] | [address] | | + + + + + documented in this encounter Visit Diagnoses + + | Diagnosis | + + | Atrial tachycardia (HCC) - Primary Other specified cardiac dysrhythmias | + + | Paroxysmal atrial fibrillation (HCC) Atrial fibrillation | + + documented in this encounter
--- OUTSIDE RECORDS SUMMARY | ~2020-05-04 | XMS | Encounter Summary ---
Demographics + + + | Address | [address] | | | [place] [address] | + + + | Home Phone [...] + | Gene Gee | ECON | [address] | | | | | [place], | | | | | [place] [address] | | + + + + + Care Team Providers + +------+ + | Care Director Of Housing Name | Role | Phone | + +------+ + | Antony Ribera MD | PCP | | + +------+ + Reason for Visit + +--------+ + | Reason | Onset | Comments | | | Date | | + +--------+ + | Lab Results | 11/23/ | | | | 2010 | | + +--------+ + Encounter Details +--------+ + + + + | Date | Type | Department | Care Team | Description | +--------+ + + + + | 11/23/ | Telephone | Hematology/Medical | Marcus Stevan Razo, | Lab Results | | 2010 | | Oncology at [facility] | MD [address] | | | | | [address] | [facility] [place] | | | | | Mailcode: [facility] | [address] | | | | | [facility] | [phone] | | | | | and Healing, | | | | | | [facility] | | | | | | Floor [place], [place] | | | | | | [address] | | | | | | [phone] | | | +--------+ + + + [...] encounter Miscellaneous Notes Telephone Encounter - Jenny Moody - 11/23/2010 10:20 AM PDTPatient said that she will c onsult with Dr. Horowitz next time she sees him. Nothing further. elephon e Encounter - Rosalinda Palacios RN - 11/23/2010 9:17 AM PDTReceived message below from Dr. Keren jacobo. Called to discuss with patient. LM for patient with this information. Requested call back to confirm she received the message and whether she has additional questions. it is important that she has good cholesterol control can you suggest to her that she discu ss her cholesterol level with Dr. Horowitz when she sees him next thanks From: Vu [[email or web address] Sent: Monday, November 22, 2010 7:10 PM To: Tricia Velazquez Subject: Thanks for the call Dr. Velazquez, Thank you for calling to give me the explanation of the CT results. I really a ppreciate the full report. Did you receive my test results from [facility] of my blood work? You were to get a co py. My cholesterol remains a little too high. (it stays in the same range each time, though) Dr. Ribera has tri ed all drugs to bring it down. Every drug really upsets my intestines. I try to watch my diet closely. If you have anymore tong ggestions, please feel free to call anytime. Have a great evening. Adriana <mailto: > documented in this en counter Plan of Treatment Not on filedocumented as of this encounter Visit Diagnoses Not on filedocumented in this encounter"
--- OUTSIDE RECORDS SUMMARY | ~2020-05-04 | XMS | Encounter Summary ---
Demographics + + + | Address | [address] | | | [place] [address] | + + + | Home Phone [...] + | Gene Gee | ECON | [address] | | | | | [place], | | | | | [place] [address] | | + + + + + Care Team Providers + +------+ + | Care Stummel Selector Name | Role | Phone | + +------+ + | Antony Ribera MD | PCP | | + +------+ + Encounter Details +--------+ + + + + | Date | Type | Department | Care Team | Description | +--------+ + + + + | 04/10/ | MyChart | [facility] | Tapan Horowitz MD | labs | | 2011 | Encounter | [facility] | [address] | | | | | [facility] | [address], | | | | | [address] | [place] [address] | | | | | [address] | [phone] | | | | | Physician's | | | | | | [address], [address] floor | | | | | | [place], [place] | | | | | | [address] | | | | | | [phone] | | | +--------+ + + + [...]
--- OUTSIDE RECORDS SUMMARY | ~2020-05-04 | XMS | Encounter Summary ---
Demographics + + + | Address | [address] | | | [place] [address] | + + + | Home Phone [...] + | Gene Gee | ECON | [address] | | | | | [place], | | | | | [place] [address] | | + + + + + Care Team Providers + +------+ + | Care Reliability Technologist Name | Role | Phone | + +------+ + | Antony Ribera MD | PCP | | + +------+ + Encounter Details +--------+ + + + + | Date | Type | Department | Care Team | Description | +--------+ + + + + | 06/01/ | Documentati | [facility] | Tapan Horowitz MD | | | 2014 | on | [facility] | [address] | | | | | [facility] | [facility], | | | | | [address] | [place] [address] | | | | | [address] | [phone] | | | | | Physician's | | | | | | [address], 1st floor | | | | | | [place], [place] | | | | | | [address] | | | | | | [phone] | | | +--------+ + + + [...] + | COMPLETE METABOLIC | Routin | 06/01/2015 | | Results for this | | SET | e | | | procedure are in the | | (NA,K,CL,CO2,BUN,CRE | | | | results section. | | AT,GLUC,CA,AST,ALT,B | | | | | | DANICA TOTAL,ALK | | | | | | PHOS,ALB,PROT TOTAL) | | | | | + +--------+ + + + | CBC ONLY | Routin | 06/01/2015 | | Results for this | | | e | | | procedure are in the | | | | | | results section. | + +--------+ + + + | TSH | Routin | 06/01/2015 | | Results for this | | | e | | | procedure are in the | | | | | | results section. | + +--------+ + + + documented in this encounter Results CBC ONLY (06/01/2015) + +-------+ + + + | Component | Value | Ref Range | Performed | Pathologist | | | | | At | Signature | + +-------+ + + + | WHITE CELL | 5.8 | K/cu mm | [facility] | | | COUNT | | | LAB | | + +-------+ + + + | HEMOGLOBIN | 14.6 | 12.1999 - 15 | [facility] | | | | | g/dL | LAB | | + +-------+ + + + | HEMATOCRIT | 44.6 | % | [facility] | | | | | | LAB | | + +-------+ + + + | PLATELET | 151 | K/cu mm | [facility] | | | COUNT | | | LAB | | + +-------+ + + + + + | Specimen | + + | Blood - Blood | + + + + + + + | Performing | Address | City/State/Zipcode | Phone Number | | Organization | | | | + + + + + | [facility] | [address] | [place], [place] | | | | [address] | [address] | | + + + + + TSH (06/01/2015) + +-------+ + + + | Component | Value | Ref Range | Performed | Pathologist | | | | | At | Signature | + +-------+ + + + | TSH | 2.41 | uIU/ml | [facility] | | | | | | LAB | | + +-------+ + + + + + | Specimen | + + | Blood - Blood | + + + + + + + | Performing | Address | City/State/Zipcode | Phone Number | | Organization | | | | + + + + + | [facility] | [address] | [place], [place] | | | | [facility] | [address] | | + + + + + COMPLETE METABOLIC SET (NA,K,CL,CO2,BUN,CREAT,GLUC,CA,AST,ALT,BILI TOTAL,ALK PHOS,ALB,PROT TOTAL) (06/01/2015) + +-------+ + + + | Component | Value | Ref Range | Performed | Pathologist | | | | | At | Signature | + +-------+ + + + | GLUCOSE, | 88 | 65 - 110 mg/dL | [facility] | | | PLASMA | | | LAB | | | (LAB) | | | | | + +-------+ + + + | BUN, PLASMA | 14 | mg/dL | [facility] | | | (LAB) | | | LAB | | + +-------+ + + + | CREATININE | 0.87 | mg/dL | [facility] | | | PLASMA | | | LAB | | | (LAB) | | | | | + +-------+ + + + | TOTAL | 6.5 | g/dL | [facility] | | | PROTEIN, | | | LAB | | | PLASMA | | | | | | (LAB) | | | | | + +-------+ + + + | ALBUMIN, | 3.8 | g/dL | [facility] | | | PLASMA | | | LAB | | | (LAB) | | | | | + +-------+ + + + | CALCIUM, | 9.5 | mg/dL | [facility] | | | PLASMA | | | LAB | | | (LAB) | | | | | + +-------+ + + + | BILIRUBIN | 0.7 | Transcutaneous | [facility] | | | TOTAL | | Bilirubinometer | LAB | | + +-------+ + + + | ALK PHOS | 78 | U/L | [facility] | | | | | | LAB | | + +-------+ + + + | AST(SGOT) | 21 | U/L | [facility] | | | | | | LAB | | + +-------+ + + + | SODIUM, | 143 | mmol/L | [facility] | | | PLASMA | | | LAB | | | (LAB) | | | | | + +-------+ + + + | POTASSIUM, | 4.3 | mmol/L | [facility] | | [...] + | TOTAL CO2, | 23 | mmol/L | [facility] | | | PLASMA | | | LAB | | | (LAB) | | | | | + +-------+ + + + | ALT (SGPT) | 18 | U/L | [facility] [...] + + | [facility] | [address] | [place], [place] | | | | [address] | [address] | | + + + + + documented in this encounter Visit Diagnoses Not on filedocumented in this encounter"
--- OUTSIDE RECORDS SUMMARY | ~2020-05-04 | XMS | Encounter Summary ---
Demographics + + + | Address | [address] | | | [place] [address] | + + + | Home Phone [...] + | Gene Gee | ECON | [address] | | | | | [place], | | | | | [place] [address] | | + + + + + Care Team Providers + +------+ + | Care Rn Oncology Research Name | Role | Phone | + +------+ + | Antony Ribera MD | PCP | | + +------+ + Encounter Details +--------+------+ + + + | Date | Type | Department | Care Team | Description | +--------+------+ + + + | 11/22/ | Lab | Laboratory at [facility] | | Malignant neoplasm | | 2011 | | [address] | | of breast (female), | | | | Center for [facility] | | unspecified site | | | | and Healing, | | | | | | [address] | | | | | | [place], [place] | | | | | | [address] | | | | | | [phone] | | | +--------+------+ + + + [...] + | COMPLETE METABOLIC | Routin | 11/23/2011 | Malignant neoplasm | Results for this | | SET | e | 12:24 PM | of breast (female), | procedure are in the | | (NA,K,CL,CO2,BUN,CRE | | PDT | unspecified site | results section. | | AT,GLUC,CA,AST,ALT,B | | | | | | DANICA TOTAL,ALK | | | | | | PHOS,ALB,PROT TOTAL) | | | | | + +--------+ + + + | CALCIUM, IONIZED, | Routin | 11/23/2011 | Malignant neoplasm | Results for this | | WHOLE BLOOD | e | 12:24 PM | of breast (female), | procedure are in the | | | | PDT | unspecified site | results section. | + +--------+ + [...] | | | DEPARTMENT | | | [facility] | | | OF | | | [...] DEPARTMENT OF | [address] | [place] [address] | | | PATHOLOGY | [address] [...] + | Ionized Calcium, Whole Blood | [facility] | | | DEPARTMENT OF | | | PATHOLOGY | + + + + + + + + | Performing | Address | City/State/Zipcode | Phone Number | | Organization | | | | + + + + + | [facility] | [address] | [place] [address] | | | PATHOLOGY | [address] | | | + + + + + documented in this encounter Visit Diagnoses + + | Diagnosis | + + | Malignant neoplasm of breast (female), unspecified site | + + documented in this encounter"
--- OUTSIDE RECORDS SUMMARY | ~2020-05-04 | XMS | Encounter Summary ---
Demographics + + + | Address | [address] | | | [place] [address] | + + + | Home Phone [...] + | Gene Gee | ECON | [address] | | | | | [place], | | | | | [place] [address] | | + + + + + Care Team Providers + +------+ + | Care Labor Relations Manager Name | Role | Phone | + +------+ + | Antony Ribera MD | PCP | | + +------+ + Encounter Details +--------+ + + + + | Date | Type | Department | Care Team | Description | +--------+ + + + + | 01/14/ | Telephone | [facility] | [facility] [place] | | | 2009 | | [place] [address] [address] | MD Dez [address] | | | | | [address] [facility] | [address] [place], | | | | | for Health and | [place] [address] | | | | | [facility], [place] [address] | [phone] | | | | | [place], [place] | | | | | | [address] | | | | | | [phone] | | | +--------+ + + + [...] Miscellaneous Notes Telephone Encounter - Keyla Dhillon - 02/08/2010 2:16 PM PDTS/w pt and reviewed mano/pH resu lts w/her. She knows that Dr. Ribera has been faxed a copy of her EGD and mano/pH reports. Pt has 04/13/10 appt w/Dr. Gomez to re-establish care in GI clinic (used to be seen by Dr. Alea Noriega). elephone Encounter - Keyla Almanzar - 02/08/2010 1:33 PM PDTPt tried calling back, her cell phone dropped call. Trie d to call back, no reception interviewer. elephone Encounter - Keyla Dhillon - 02/08/2010 10:05 AM PDTResults from manometry and Helms s tudy are available. Left VM for pt on her cell phone w/results. Also, s/w her and reviewed results w/hi m. Told him I would fax EGD and mano/pH reports to pt's PCP, Dr. Ribera, and he could help pt decide what kind of f/u she needs. A M PDTTelephone Encounter - Keyla Dhillon - 01/26/2010 4:39 PM PDTBravo results are not in yet , will send msg to Dr. Lo. P DTTelephone Encounter - Rosa Griffin - 01/14/2010 3:01 PM PDTPatient would like to be c ontacted by phone once Egd/Helms results have been completed. documented in this encounter Plan of Treatment Not on filedocumented as of this encounter Visit Diagnoses Not on filedocumented in this encounter"
--- OUTSIDE RECORDS SUMMARY | ~2020-05-04 | XMS | Encounter Summary ---
Demographics + + + | Address | [address] | | | [place] [address] | + + + | Home Phone [...] + | Gene Gee | ECON | [address] | | | | | [place], | | | | | [place] [address] | | + + + + + Care Team Providers + +------+ + | Care Commercial Title Examiner Name | Role | Phone | + +------+ + | Alec Hill MD | PCP | | + +------+ + Encounter Details +--------+ + + + + | Date | Type | Department | Care Team | Description | +--------+ + + + + | 07/29/ | Telephone | [facility] | Tapan Horowitz MD | | | 2020 | | [facility] | [address] | | | | | [facility] | [address] [place], | | | | | [address] | [place] [address] | | | | | [address] | [phone] | | | | | Physician's [facility]ilion | | | | | | [address] [place], | | | | | | [place] [address] | | | | | | [phone] | | | +--------+ + + + [...] Telephone Encounter - Tapan Horowitz MD - 07/29/2019 1:32 PM PSTmychart sent to [facility] will signed by Tapan Horowitz MD at 07/29/2019 1:33 PM PSTTelephone Encounter - Santos Gomez on - 07/29/2019 12:51 PM PSTPt is scheduled with you in March, does she need Dexa? Pleas e advise documented in this encounter Plan of Treatment Not on filedocumented as of this encounter Visit Diagnoses Not on filedocumented in this encounter"
--- OUTSIDE RECORDS SUMMARY | ~2020-05-04 | XMS | Encounter Summary ---
Demographics + + + | Address | [address] | | | [place] [address] | + + + | Home Phone [...] + | Gene Gee | ECON | [address] | | | | | [place], | | | | | [place] [address] | | + + + + + Care Team Providers + +------+ + | Care Powerhouse Engineer Name | Role | Phone | [...] | | | | | | | [facility] [place] | | | | | | | [address] | | | | | | | Phone: | | | | | | | [phone] | | | | | | | Fax: | | | | | | | [phone] | +--------+ + + + + + Encounter Details +--------+---------+ + + + | Date | Type | Department | Care Team | Description | +--------+---------+ + + + | 07/20/ | Office | Surgical Oncology | Luís Heart, | Skin lesion (Primary | | 2011 | Visit | at [facility] [address] | MD [address] | Dx); Carcinoma in | | | | [facility] | [place], [place] | situ of breast; | | | | [facility], | [address] | Breast cancer (HCC) | | | | Building [address] | [phone] | | | | | [facility] [place] | | | | | | [address] | | | | | | [phone] | | | +--------+---------+ + + + [...] + + + | Blood Pressure | 128/60 | 07/20/2011 1:54 PM | | | | | PST | | + + + + + | Pulse | 72 | 07/20/2011 1:54 PM | | | | | PST | | + + + + + | Temperature | 37 C (98.6 F) | 07/20/2011 1:54 PM | | | | | PST | | + + + + + | Respiratory Rate | 17 | 07/20/2011 1:54 PM | | | | | PST | | + + + + + | Oxygen Saturation | - | - | | + + + + + | Inhaled Oxygen | - | - | | | Concentration | | | | + + + + + | Weight | 63.1 kg (139 lb 3.2 | 07/20/2011 1:54 PM | | | | oz) | PST | | + + + + + | Height | - | - | | + + + + + | Body Mass Index | 22.47 | 04/28/2011 12:24 PM | | | | | PDT | | + + + + + documented in this encounter Patient Instructions Patient Instructions Claribel Garza RN - 07/20/2011 2:51 PM PSTOncology Patient Informat ion Home [facility] for W[facility] WOUND CARE *Keep wound dry and clean. *Apply ice intermittently to the affected area for the first 24 hours. DRESSINGS *You may remove the dressing in 1 day. DIET AND MEDICATIONS *Eat your normal diet and take your usual medicines unless told otherwise by your doctor. *Do not drive or drink alcoholic beverages while taking narcotics. CALL YOUR DOCTOR IF *Call your doctor right away if you have any of the following: *Increased redness *Swelling *Hardness or Firmness *Fever above 101 F *Increased bleeding *Increased Pain not relieved by medicine *Pus *Red streaks *Foul odor *Tenderness documented in this encounter Progress Notes Luís Heart MD - 07/20/2011 3:45 PM PSTI performed a history and physical examination of the patient and discussed her management with the resident. I reviewed the resident s note and agree with the documented findings and plan of care. I removed a skin lesion on her right parascapular region as a 3 mm punch. She will call in a week for the pathology and will have her suture removed elsewhere. RTC in 1 year with left mammograms. LUÍS HEART MD lithograph press operator Division of Surgical Oncology [id number] [place], [place] [address] lair, Kelsi Veliz MD - 07/20/2011 2:26 PM PSTClinic BRIEF OPERATIVE NOTE Procedure Date: 07/20/2010 Author: KELSI WEST MD Attending Physician: Dr. Luís Heart Assistants: Kelsi West At 14 52, prior to the beginning of the procedure the team paused to verify the patient's i dentity, as well as the procedure to be performed and the correct side/site. All equipment required was ready and available. The patient was positioned appropriately. Preoperative Diagnosis: back lesion unknown origen Postoperative Diagnosis: same Procedure Performed: Punch biopsy Specimens: scapular back lesion Complications: none Disposition: good Findings: no new findings Kelsi West MD Radha Moreno Md - 07/20/2011 1:56 PM PST Surgical Oncology Office Visit Adriana Flynn is a 65 y.o. Female with a history of Sjogrens and R breast cancer (invasive ductal carcinoma (path with 1/4 nodes positive), estrogen receptor positive and Her-2/Maddi ne gative) s/p Right total mastectomy with right axillary sentinel lymph node biopsy on 007, with subsequent right completion axillary lymph node dissection on 04/19/2007 with 0/16 nodes positive. In May 2007 she underwent revision of right axillary scar and release of ri ght axillary. She is s/p adjuvant chemotherapy with taxotere/cytoxan and is still taking donya midex. She had her yearly mammogram today and is here for her yearly follow up. Pt is without any questions or concerns currently. Still taking the arimidex, was hoping to get off of it soon, but been told by [facility] indicated that she will likely need to be on it l onger. Denies any breast skin changes. Has recently lost 10 lbs, intentional weight loss, fe els better! No fevers/chills/sweats. Has had very little problems with lyphedema in her R ar m--exercising 3 days a week, stretching and lifting weights/machines, and pt thinks that's h elping. Pt has not worn her sleeve for almost 2 years now--hasn't had to. Also as a growth on her back that she would like looked at. This was frozen off by her PCP about 1 month ago, and prior to that it had been present for 6 mo to a year. Since then it h as started to stick out further and is itchy. Has not bled. ROS: Recent sinus infection dx over the holidays still on augmentin, symptoms are improving . 10-pt ROS otherwise negative except as noted in the HPI. Meds: Current Medication List Name Sig ANASTROZOLE 1 MG TAB Take 1 Tab by mouth once daily. ATENOLOL 50 MG TAB Take 25 mg by mouth two times daily. 1/2 tablet twice daily BUDESONIDE 180 MCG/INHALATION BREATH ACTIVATED POWDER AEROSOL Inhale 2 Puffs two times bing y. CITRACAL + D 315 MG-200 UNIT TAB 2 tabs in evening and liquid calcium citrate in AM CHOLESTYRAMINE (WITH SUGAR) ORAL Take by mouth. DOFETILIDE 500 MCG CAP Take 1 Cap by mouth two times daily. EZETIMIBE 10 MG TAB Take 10 mg by mouth once daily. FLUTICASONE 50 MCG/ACTUATION NASAL SPRAY, SUSP Instill 2 Sprays into each nostril as needed . GLUCOSAMINE SULFATE DIPOTASSIUM CHLORIDE 1,000 MG TAB one daily METHYLCELLULOSE (LAXATIVE) ORAL POWDER Take by mouth. MULTIVITAMIN OR one daily POTASSIUM CHLORIDE ER 20 MEQ TAB, PARTICLES/CRYSTALS Take 1 Tab by mouth once daily. Please dispense as K-dur- other preparations do not get absorbed properly RABEPRAZOLE 20 MG TAB, DELAYED RELEASE Take 20 mg by mouth once daily. TRAMADOL 50 MG TAB Take 1 Tab by mouth every six hours as needed for moderate pain. ANTIOXIDANT FORMULA CAP take 1 capsule by oral route once daily with food VITAMIN D ORAL 2000 IU daily ZOLEDRONIC ACID IN MANNITOL & WATER 5 MG/100 ML IV Inject into the vein (IV). Yearly Allergies Allergen Reactions Sulfa (Sulfonamide Antibiotics) Swelling-Facial Albuterol Tachycardia Celebrex (Celecoxib) Diarrhea [...] (Dexlansoprazole) Lactose Propafenone unknown Triamterene-Hydrochlorothiazid BREAST LUMPS Zetia (Ezetimibe) Nausea/Vomiting Tape Adherent Rash Patient Active Problem List Diagnoses Date Noted Thyroid nodule 12/29/2008 Overview Note: May 2011 US: Scattered sub-cm nodules December 2008 US: 5 mm Right cyst Other Pulmonary Embolism and Infarction 09/18/2008 Sjogren's Syndrome 09/08/2008 Dyspnea 08/13/2008 Breast Cancer 05/21/2008 Osteopenia 12/30/2007 Overview Note: DXA 04/28/11: L -1.8 H -1.8 DXA 01/27/10: L -1.9 H -1.6 DXA 12/28/08: L -1.9 H -1.5 Lymphedema 11/01/2007 Nausea with Vomiting 08/15/2007 Encounter for Antineoplastic Chemotherapy 08/15/2007 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 Fuentes, [facility] Mastectomy Biopsy / excision / dissection axillary node SH: Still living [facility], but thinking of moving to the [place] area closer to [facility]. Physical Exam: VS: BP 128/60 | Pulse 72 | Temp (Src) 37 C (98.6 F) (Oral) | RR 17 | Wt 63.141 kg (139 lb 3.2 oz) Gen: Pleasant WDWN woman in NAD. HEENT: MMM. Neck: Supple. No cervical LAD. No thyromegaly or tenderness. Pulm: CTAB with good air movement CV: RRR, nl s1 and s2, no m/r/g. Breasts: R breast s/p mastectomy with no masses or skin changes appreciated overlying skin flaps or surrounding the scar. L breast with everted nipple, no skin changes or dimpling not ed. No masses or nipple discharge. No axillary or supraclavicular LAD. Abd: Well-healed scars over upper abdomen. Soft, non-distended, non-tender. No hepatomegaly . Skin: ~2 mm calvillo-colored papule with sl scale on mid upper back on R. Ext: Warm and well-perfused. No edema. Upper extremities without asymmetry. [place] DIAGNOSTIC MAMMO LEFT W/CAD: Patient History: Patient is postmenopausal and has history of breast cancer at age 62. Family history of breast cancer in cousin at age 65. Mastectomy of the right breast, March 2007. Last mammogram was performed 1 year and 1 month ago. Reason for exam: history of breast cancer, mastectomy. Diagnostic code: 233.0 [place] DIGITAL MAMMO DIAG LEFT W/CAD: July 20, 2011 - CC, MLO, and XCCL view(s) were taken of the left breast. Prior study comparison: June 30, 2010, [place] DIGITAL MAMMO DIAG LEFT w/CAD. May 27, 2009, [place] DIAGNOSTIC MAMMO LEFT w/CAD. May 21, 2008, [facility] DIG MAMMO DIAG LEFT. There are scattered fibroglandular densities. There has been right mastectomy. The left breast shows no suspicious calcifications, masses, or architectural distortion present. The images were obtained using full field digital mammography on the dedicated ApptheGame System with R2 CAD. Performed at [facility]. ASSESSMENT: Benign - Category 2 RECOMMENDATION: Routine screening mammogram of the left breast in 1 year. Attending Radiologists: Monique Lehman M.D. Author: Deniz Frey M.D. Impression and Plan: Adriana Flynn is a 65 y.o. Female with right breast cancer now 4 years out s/p mastectomy, axillary dissection and adjuvant chemotherapy on arimidex, as well as skin lesion. -Breast cancer: 1. No evidence of recurrent disease 2. Continue Arimidex. 4. RTC 1 year with diagnostic mammogram -Skin lesion: 1. Removal via punch biopsy--see separate procedure note 2. Send for dermatopathology Return in about 1 year (around 07/20/2012) for fu with mamms first at [facility]. Radha Donovan MD Family Medicine/Preventive Medicine, PGY3 documented in this encou nter Procedure Notes Kelsi West MD - 07/21/2011 7:22 AM PSTAssociated Order(s): OPERATION RECORD 01 [id number] GEE Holman [id number] Date: 07/20/2011 Attending Surgeon: Luís Heart M.D. Digital Production Operator(s): Kelsi West M.D. Preoperative Diagnosis(es): Back lesion of unknown origin. Postoperative Diagnosis(es): Back lesion of unknown origin. Procedures Performed: Punch biopsy. Anesthesia: Local anesthesia. Estimated Blood Loss: 0 cc. Specimens: Punch biopsy. Indications: Adriana Flynn is a 65-year-old female who is well-known to Dr. Heart. She had a basal cell carcinoma of the right scapular region widely excised on 07/22/2007. She returned to clinic for followup with new lesion posterior and in the 7 o'clock position of her previous scar. It was felt that this area should be biopsied for further evaluation. Procedure: The patient was placed in the prone position and draped and prepped in the normal general surgery fashion. Approximately, 4 mL of lidocaine were used to anesthetize the area. A punch biopsy was used to obtain the specimen and the specimen was placed in specimen cup. A team pause was held at the beginning of the procedure. The patient was identified. All sites were also specified and all questions were answered. Dr. Heart was present for the entire procedure and all counts were correct. Kelsi West M.D. [facility] Heart M.D. TIMOTHY / [id number] / [id number] / [id number] / documented in this e ncounter Miscellaneous Notes Scan - Ligia Faculty - 07/21/2011 4:14 PM PSTElectronically signed by Faculty Other at 4:14 PM PSTdocumented in this encounter Plan of Treatment + +------+--------+ + + | Name | Type | Priori | Associated Diagnoses | Order Schedule | | | | ty | | | + +------+--------+ + + | DERM PATHOLOGY | Lab | Routin | Skin lesion | Ordered: 07/20/2011 | | | | e | | | + +------+--------+ + + documented as of this encounter Procedures + +--------+ + + + | Procedure Name | Priori | Date/Time | Associated Diagnosis | Comments | | | ty | | | | + +--------+ + + + | OPERATION RECORD | | 08/07/2011 | | Results for this | | | | 8:24 AM | | procedure are in the | | | | PST | | results section. | + +--------+ + + + | DERMATOPATHOLOGY(WET | Routin | 07/20/2011 | | Results for this | | [facility]) | e | | | procedure are in the | | | | | | results section. | + +--------+ + + + documented in this encounter Results AIDE PINA MAMMO GENESIS MALLOY (05/02/2012 2:56 PM PDT) + + + [...] | | | | | | 2011, AIDE DIGITAL MAMMO | | | | [...] | | + +---------+ + + | [facility] DEPARTMENT OF | | | | | RADIOLOGY | | | | + +---------+ + + OPERATION RECORD (08/07/2011 8:24 AM PST) + + | Transcriptions | + + | Kelsi West MD - 07/21/2011 7:22 AM PST [id number] | | [id number] GEE AGUILAR | | [id number] Date: 07/20/2011 Attending Surgeon: | | Luís Heart M.D. Digital Production Operator(s): Kelsi West M.D. | | Preoperative Diagnosis(es):Back lesion of unknown origin. Postoperative | | Diagnosis(es):Back lesion of unknown origin. Procedures Performed:Punch biopsy. | | Anesthesia:Local anesthesia. Estimated Blood Loss:0 cc. Specimens:Punch biopsy. | | Indications:Adriana Flynn is a 65-year-old female who is well-known to Dr. Heart. | | Shehad a basal cell carcinoma of the right scapular region widely excised on07/22/2007. | | She returned to clinic for followup with new lesion posteriorand in the 7 o'clock | | position of her previous scar. It was felt that thisarea should be biopsied for further | | evaluation. Procedure:The patient was placed in the prone position and draped and | | prepped in thenormal general surgery fashion. Approximately, 4 mL of lidocaine were | | usedto anesthetize the area. A punch biopsy was used to obtain the specimenand the | | specimen was placed in specimen cup. A team pause was held at thebeginning of the | | procedure. The patient was identified. All sites werealso specified and all questions | | were answered. Dr. Heart was presentfor the entire procedure and all counts were | | correct. Kelsi Wset M.D. Lu[facility] Heart M.D. TIMOTHY / [id number] / [id number] / | | [id number] / T: 07/21/2011 | |Postoperative Diagnosis(es): | |Back lesion of unknown origin. | | | | | |Procedures Performed: | |Punch biopsy. | | | | | |Anesthesia: | |Local anesthesia. | | | | | |Estimated Blood Loss: | |0 cc. | | | | | |Specimens: | |Punch biopsy. | | | | | |Indications: | |Adriana Flynn is a 65-year-old female who is well-known to Dr. Heart. She | |had a basal cell carcinoma of the right scapular region widely excised on | |07/22/2007. She returned to clinic for followup with new lesion posterior | |and in the 7 o'clock position of her previous scar. It was felt that this | |area should be biopsied for further evaluation. | | | | | |Procedure: | |The patient was placed in the prone position and draped and prepped in the | |normal general surgery fashion. Approximately, 4 mL of lidocaine were used | |to anesthetize the area. A punch biopsy was used to obtain the specimen | |and the specimen was placed in specimen cup. A team pause was held at the | |beginning of the procedure. The patient was identified. All sites were | |also specified and all questions were answered. Dr. Heart was present | |for the entire procedure and all counts were correct. | | | | | | | | | |Kelsi West M.D. | | | | | | | | | |Luís Heart M.D. | | | | | |TIMOTHY / HS | |[id number] / [id number] / [id number] / | | | | | | | | | | | | | | | | | | | | | + + DERMATOPATHOLOGY([facility]) (07/20/2011) + + + + + + | Component | Value | Ref Range | Performed | Pathologist | | | | | At | Signature | + + + + + + | DERMATOPATH | SOURCE OF SPECIMEN:A Rt. | | [facility] | | | OLOGY(WET | back, punch biopsy | | DERMATOPATH | | | MNT) | CLINICAL | | OLOGY | | | | DESCRIPTION:Skin lesion. | | | | | | GROSS | | | | | | DESCRIPTION:Received in | | | | | | formalin is a specimen | | | | | | labeled GeeAdriana:A: | | | | | | Specimen is labeled | | | | | | "right back lesion 3mm" | | | | | | and consists of a 3mm | | | | | | punchof white papular | | | | | | skin cut to a depth of | | | | | | 7mm. The surgical margin | | | | | | is inkedgreen and | | | | | | entirely submitted in | | | | | | cassette A1. | | | | | | MICROSCOPIC | | | | | | DESCRIPTION:There is | | | | | | epidermal hyperplasia | | | | | | with horn pseudocysts, | | | | | | interweaving of therete | | | | | | and nuclei of uniform | | | | | | size and shape. A | | | | | | lymphohistiocytic | | | | | | infiltrateis present | | | | | | within the dermis and | | | | | | the epithelium. | | | | | | DIAGNOSIS:SEBORRHEIC | | | | | | KERATOSIS, INFLAMED. | | | | | | KPW:emr07/26/11 | | | | | | My electronic signature | | | | | | indicates that I have | | | | | | personally reviewed | | | | | | alldiagnostic slides, | | | | | | the gross and/or | | | | | | microscopic portion of | | | | | | thisreport and | | | | | | formulated the final | | | | | | diagnosis. | | | | | | Rendering Diagnostician: | | | | | | Jose Corcoran | | | | | | DeclanPathologistJanettei | | | | | | will Signed 07/26/2011 | | | | | | 12:55PM | | | | + + + + + + + + | Specimen | + + | | + + + + + + + | Performing | Address | City/State/Zipcode | Phone Number | | Organization | | | | + + + + + | [facility] | [address] | [place] [address] | | | DERMATOPATHOLOGY | [address] | | | + + + + + | [facility] | [address] | [place] [address] | | | DERMATOPATHOLOGY | [address] | | | + + + + + documented in this encounter Visit Diagnoses + + | Diagnosis | + + | Skin lesion - Primary Unspecified disorder of skin and subcutaneous tissue | + + | Carcinoma in situ of breast | + + | Breast cancer (HCC) Malignant neoplasm of breast (female), unspecified site | + + documented in this encounter
--- OUTSIDE RECORDS SUMMARY | ~2020-05-04 | XMS | Encounter Summary ---
Demographics + + + | Address | [address] | | | [place] [address] | + + + | Home Phone [...] + | Gene Gee | ECON | [address] | | | | | [place], | | | | | [place] [address] | | + + + + + Care Team Providers + +------+ + | Care Shank Breaker Name | Role | Phone | + [...] | | | | | | | [address] | | | | | | | [address] | | | | | | | [place], [place] | | | | | | | [address] | | | | | | | Phone: | | | | | | | [phone] | | | | | | | Fax: | | | | | | | [phone] | + +--------+ + + + + Encounter Details +--------+ + + + + | Date | Type | Department | Care Team | Description | +--------+ + + + + | 02/22/ | Telephone-S | Surgical Oncology | Luís Heart, | | | 2020 | cheduled | at [facility] [address] | MD [address] | | | | | [facility] for | [place], [place] | | | | | [facility], | [address] | | | | | [address] | [phone] | | | | | [place], [place] | | | | | | [address] | | | | | | [phone] | | | +--------+ + + + [...] documented as of this encounter Progress Notes Luís Heart MD - 02/23/2020 12:10 PM PDTSurgical Oncology Clinic Note Jefe Service 02/23/2020 Adriana Flynn is a 74 y.o. female with a history of right breast cancer treated with mastec sander, axillary dissection, chemotherapy in 2006. Today is an annual follow up (call) and we stopped getting mammograms last year. She states she is well, no clinical concerns of recurrent or new breast cancer. She specifi will denies breast changes or masses, nipple discharge, breast pain, or lymphadenopathy. Th ere is no concerning nodularity or masses in the right mastectomy flaps. She also denies sys temic symptoms including fevers, chills, night sweats, or unintended weight loss. Assessment: History of carcinoma of the right breast. The patient currently has no evidence of disease per her report. We are no longer getting left breast mammograms as she is over 7 5. We will continue with annual surveillance visits with CBE only. I told her that our curre nt recommendation is to forego CBE during the pandemic, as benefits are outweighed by risks, but have them come in when the pandemic lifts to make up the CBE. I currently don't foresee it lifting before next spring at the soonest, and by then we will be close to a year, so abena diaz can then opt to come in or just wait until the 1 year point, after which we hope the pandemic will truly be lifted. I think her case is low enough risk to recommend the latter. I did advise her that we will see patients who detect masses or other problems at any time. Plan: RTC in 1 year for CBE. The visit took place via telephone with the provider located at the distant site of [facility]. T he patient stated they were located at the originating site of home and were in the state of [place] at the time of the telephone visit. The names of all additional persons participatin g in the telephone visit and their roles are: Adriana and . Time spent on the call: 30 min. The patients encounter was accomplished via a telephone call today due to COVID-19 precauti onary measures to limit the patient's unnecessary exposure. I, Jane Brown, am functioning as a scribe for Luís Heart MD at 11:06 AM on 02/23/20. I have reviewed and verified the above scribed note of my visit with this patient as record ed by Jane Brown. LUÍS HEART MD paste worker Division of Surgical Oncology [address] [place], [place] [address] documented in this en counter Plan of Treatment Not on filedocumented as of this encounter Visit Diagnoses + + | Diagnosis | + + | Personal history of breast cancer - Primary Personal history of malignant neoplasm of | | breast | + + documented in this encounter"
--- OUTSIDE RECORDS SUMMARY | ~2020-05-04 | XMS | Encounter Summary ---
Demographics + + + | Address | [address] | | | [place] [address] | + + + | Home Phone [...] + | Gene Gee | ECON | [address] | | | | | [place], | | | | | [place] [address] | | + + + + + Care Team Providers + +------+ + | Care Automation Driver Name | Role | Phone | [...] + + | 06/26/ | Anesthesia | 6A Intra Op [id number] | Monique Macias MD | | | 2011 | Event | [address] | [address] | | | | | [facility] | [facility] | | | | | [facility] Admitting | [place] [address] | | | | | Desk Located on the | [phone] | | | | | 9th floor | | | | | | [place], [place] | Angel Cope, | | | | | [address] | CLINICAL RESEARCH COORDINATOR | | +--------+ + + + + Anesthesia Record + + + + + | Procedure Name | Responsible | Anesthesia Start | Anesthesia Stop Time | | | Anesthesiologist | Time | | + + + + + | RIGHT BREAST | Monique Macias MD | 06/26/12 5185 | 06/26/12 1703 | | RECONSTRUCTION WITH | | | | | TISSUE CARBIDE POWDER PROCESSOR | | | | | PLACEMENT Pathology | | | | | x1 (Right Chest) | | | | + + + + + +----+---+ + + | Da | T | Event | Comment | | te | i | | | | | m | | | | | e | | | +----+---+ + + | 12 | 1 | An Start | | | /1 | 4 | | | | 2/ | 5 | | | | 20 | 5 | | | | 12 | | | | +----+---+ + + | | 1 | Eq Check | Anesthesia machine checked Equipment verified | | | 4 | | | | | 5 | | | | | 7 | | | +----+---+ + + | | 1 | Pt. Check | Prior to anesthesia start, pt. Identified, examined, chart | | | 4 | | reviewed, PARQ held, anesthetic plan made or approved by | | | 5 | | attending anesthesiologist. NPO status confirmed as appropriate | | | 7 | | for procedure Preoperative evaluation: unchanged | +----+---+ + + | | 1 | An Start | | | | 4 | Data | | | | 5 | | | | | 7 | | | +----+---+ + + | | 1 | Vitals | Monitors applied Vital signs checked Patient ready for anesthesia | | | 4 | Checked | | | | 5 | | | | | 7 | | | +----+---+ + + | | 1 | Std. Airway | | | | 5 | Mgt. | | | | 0 | | | | | 3 | | | +----+---+ + + | | 1 | Ready | | | | 5 | | | | | 0 | | | | | 5 | | | +----+---+ + + | | 1 | Abx | | | | 5 | Administere | | | | 1 | d | | | | 5 | | | +----+---+ + + | | 1 | Incision | | | | 5 | | | | | 2 | | | | | 9 | | | +----+---+ + + | | 1 | Surgery end | | | | 6 | | | | | 4 | | | | | 8 | | | +----+---+ + + | | 1 | an raymond now | | | | 7 | | | | | 0 | | | | | 0 | | | +----+---+ + + | | 1 | an stop | | | | 7 | data | | | | 0 | | | | | 0 | | | +----+---+ + + | | 1 | Anesthesia | | | | 7 | End | | | | 0 | | | | | 3 | | | +----+---+ + + +------+ | Meds | +------+ + + + | Name | Total | + + + | ceFAZolin | 1,000 mg | + + + | lidocaine 2% | 60 mg | + + + | midazolam | 2 mg | + + + | fentaNYL | 150 mcg | + + + | propofol | 120 mg | + + + | rocuronium | 30 mg | + + + | dexamethasone | 4 mg | + + + | PHENYLephrine | 950 mcg | + + + | neostigmine | 3 mg | + + + | glycopyrrolate | 0.4 mg | + + + | metoclopramide | 10 mg | + + + | ondansetron | 4 mg | + + + | HYDROmorphone | 0.4 mg | + + + | lactated ringers IV | 1,500 mL | + + + + + [...] + + + | RETIRE | 06/26/12; 06/27/12; 1036; 18; | 06/26/12 0000 by | 06/27/12 103 by | | D - | Left; Hand | Zari Hung RN | Carrie Cruz RN | | Periph | | | | | eral | | | | | Line | | | | +--------+ + + + | RETIRE | 06/26/12; 1330; 06/27/12; 1036; | 06/26/12 1330 by | 06/27/12 1036 by | | D - | No; 22; Left; Hand; Lidocaine; | Lindsay Smith | Carrie Cruz RN | | Periph | Positive | Deandt | | | eral | | | [...] encounter OR Notes Anesthesia Postprocedure Evaluation - Angel Cope CRNA - 06/26/2012 5:30 PM PSTForm atting of this note might be different from the original. Adriana Flynn [phone] Allergies Allergen Reactions Sulfa(Sulfonamide Antibiotics) Swelling-Facial Albuterol Tachycardia Cardizem (Diltiazem Hcl) [...] [facility] Heart ablation 12/16/2004,09/21/2005 Dr. Fuentes, [facility] Mastectomy Biopsy / excision / dissection axillary node Evaluation Patient personally seen and evaluated for recovery from anesthesia care, ROS including card , resp, Neuro, and GI w/o evidence of adverse effects and VS including temperature and hydra tion status are normal Complications nesthesia Prepro cedure Evaluation - Monique Macias MD - 06/26/2012 2:28 PM PST Adriana Holman Gee [id number] Allergies Allergen Reactions Sulfa(Sulfonamide Antibiotics) Swelling-Facial Albuterol Tachycardia Cardizem (Diltiazem Hcl) [...] Embolism and Infarction Thyroid nodule Skin lesion Past Surgical History Procedure Date Ectopic age [...] [facility] Heart ablation 12/16/2004,09/21/2005 Dr. Fuentes, [facility] Mastectomy Biopsy / excision / dissection axillary node Current Medication List Name Sig Last Dose ANASTROZOLE 1 MG TABLET Take 1 Tab by mouth once daily. 06/26/2012 ATENOLOL 50 MG TABLET Take 25 mg by mouth two times daily. 1/2 tablet twice daily 2 BUDESONIDE 180 MCG/ACTUATION BREATH ACTIVATED POWDER INHALER Inhale 2 Puffs once daily. 06/2012 CITRACAL + D 315 MG-200 UNIT TABLET 2 tabs in evening and liquid calcium citrate in AM 05/2012 DICLOFENAC 1 % TOPICAL GEL Apply to affected area three times daily. Within last 7 days DOFETILIDE 500 MCG CAPSULE Take 1 Cap by mouth two times daily. 06/26/2012 EZETIMIBE 10 MG TABLET Take 10 mg by mouth once daily. 06/25/2012 FLUTICASONE 50 MCG/ACTUATION NASAL SPRAY, SUSP Instill 1 [place] into each nostril two times daily. 06/26/2012 GLUCOSAMINE SULFATE DIPOTASSIUM CHLORIDE 1,000 MG TABLET one daily 06/25/2012 METHYLCELLULOSE (LAXATIVE) ORAL POWDER Take by mouth. Within last 7 days MULTIVITAMIN OR one daily 06/25/2012 POTASSIUM CHLORIDE ER 20 MEQ TABLET,EXTENDED RELEASE(PART/CRYST) Take 1 Tab by mouth once d aily. Please dispense as K-dur- other preparations do not get absorbed properly 06/25/2012 RABEPRAZOLE 20 MG TABLET,DELAYED RELEASE Take 20 mg by mouth once daily. 06/26/2012 TRAMADOL 50 MG TABLET Take 1 Tab by mouth every six hours as needed for moderate pain. With in last 30 days ANTIOXIDANT FORMULA CAPSULE take 1 capsule by oral route once daily with food 06/25/2012 VITAMIN D ORAL 2000 IU daily 06/25/2012 Lab Results Component Value Date RATE 57 06/25/2012 ATRIALRATE 57 06/25/2012 CT 150 06/25/2012 QRS 82 06/25/2012 QT 484 06/25/2012 QTC 471 06/25/2012 PAXIS 72 06/25/2012 RAXIS 68 06/25/2012 TAXIS 33 06/25/2012 EKGDX Value: Sinus bradycardia Prolonged QT Abnormal ECG Confirmed by BERNARD GONZALEZ ([id number]) on 06/25/2012 10:21:45 PM 06/25/2012 Preoperative Adult Anesthesia Plan Last edited 06/25/12 1349 by MAGGY Dennis ROS Pulmonary: History of pulm embolus and [...] with norovirus over thanksgiving with days of diarrhea, vomiting. No new medications given Stress TEST 02/2012 [facility] negative for ischemia Within Defined Limits except as noted below [...] CORTICOSTEROID no psychiatric problem no dementia pain MS: H/o fibromyalgia Within Defined Limits except as noted below [...] Alert and appropriate; nl affect. alert Findings: Cranial nerves 2-12 intact, Motor 5/5 strength globally with normal tone, Soft & sharp sensation normal, No tremor, Alert, oriented to person, place, time and Normal affect Integument: No open rashes or lesions noted. - lesion, rash and open wounds Color: pink Turgor: turgor normal Implants: Comments: DIFFICULT IV ACCESS Well appearing 66 y F with history of atrial tachycardia maintained on antiarrhythmia med and atenolol. History of mitral valve prolapse diagnosed about 8 years ago in [place] Pt had recent onset of atrial fibrillation induced by days of vomiting and diarrhea. Treated in ED ?[place]. Pt has not had any recurrent symptoms History of breast cancer on right treated with radical mastectomy and chemotherapy. After chemorx in 2007 pt had a DVT and a pulmonary embolus. She was treated w coumadin for unknown amount of time. She says that Dr. Lopez may put her on lovenox post op for upcoming surgery Asthma is stable, using albuterol less than 2x week. Pt also has sjorgrens which in past has aggravated the asthma. Fibromyalgia is treated with exercise with infrequent use of narcotic analgesic Pt is able to ride exercise bike for 30 minute duration. She does daily stretching and weight lifting Anesthesia Plan Comments ASA ASA 2 NPO Status NPO Status: NPO by protocol Monitors/Lines to be used Standard Anesthetic Consideration PONV prophylaxis and Preop antiobiotics Induction Anesthetic Technique General; Post-Op Pain Plan IV analgesics; Blood Products Interpretive Services Informed Consent PARQ discussed with: patient, Procedures, Alternatives, Risks, and Questions discussed Code status in OR Patients Code Status in OR: FULL 06/26/2012 2:28 PM documented in this enco unter Miscellaneous Notes Ane airway standard - Angel Cope CRNA - 06/26/2012 3:35 PM PSTProcedure Reason for Intubation: For surgical procedure, Location Performed: OR , Patient was preoxyg enated Mask Ventilation Grade 1 - Ventilated by mask Rapid Sequence Induction: No Intubation Blade type: Brown , Blade size: 2, Atraumatic laryngoscopy: Atraumatic Laryngoscopy, Intub ation adjuncts: w/ Bougie , Laryngoscopic view: Grade II, Fiberoptics used: N/A , Number of Attempts: 1, Positive for EtCO2: Yes, Breath sounds: Bilateral and equal ETT Ett Adult: Single-lumen cuffed ETT Size: 7 ETT secured with: adhesive tape Depth at Lip: 22 cm Airway leak: No LMA Narrative Attending physically present Attending: MONIQUE MACIAS Performed by ANGEL BURNS Grade II with BURP, grade III without, bougie used, atraumatic. MC/ANE PreOp Not e - Ita Tidwell, SIDE PANEL PADDER - 06/25/2012 12:57 PM PST ROS Pulmonary: History of pulm embolus and [...] Stress TEST 02/2012 [facility] negative for ischemia Within Defined Limits except as noted below F unctional Capacity: Moderate - chest pressure and syncope [...] CORTICOSTEROID no psychiatric problem no dementia pain MS: H/o fibromyalgia Within Defined Limits except as noted below arthritis Type: Sjogren sy ndrome Heme/Onc: Within Defined Limits except as noted [...] Alert and appropriate; nl affect. alert Findings: Cr anial nerves 2-12 intact, Motor 5/5 strength globally with normal tone, Soft & sharp sensati on normal, No tremor, Alert, oriented to person, place, time and Normal affect Integument: No open rashes or lesions noted. - lesion, rash and open wounds Color: pink Turgor: turgor normal Implants: Comments: DIFFICULT IV ACCESS Well appearing 66 y F with history of atrial tachycardia maintained on antiarrhythmia med a nd atenolol. History of mitral valve prolapse diagnosed about 8 years ago in [place] Pt had recent onset of atrial fibrillation induced by days of vomiting and diarrhea. Treate d in ED ?[place]. Pt has not had any recurrent symptoms History of breast cancer on right treated with radical mastectomy and chemotherapy. After c hemorx in 2007 pt had a DVT and a pulmonary embolus. She was treated w coumadin for unknown amount of time. She says that Dr. Lopez may put her on lovenox post op for upcoming surgery Asthma is stable, using albuterol less than 2x week. Pt also has sjorgrens which in past bhakta s aggravated the asthma. Fibromyalgia is treated with exercise with infrequent use of narcot ic analgesic Pt is able to ride exercise bike for 30 minute duration. She does daily stretching and weig ht lifting documented in t his encounter Plan of [...] ceFAZolin (aka ANCEF) injection | Given | 06/26/20 | 1,000 mg | | | | intravenous, INTRAPROCEDURE | | 12 3:15 | | | | | PRN, Starting Sun06/26/12 at | | PM PST | | | | | 1515, Until Sun06/26/12 at 1700 | | | | | | + +--------+ + +------+------+ +---+---+ | | | +---+---+ + +-------+ +------+---+---+ | dexamethasone (aka DECADRON) | Given | 06/26/20 | 4 mg | | | | injection intravenous, | | 12 3:10 | | | | | INTRAPROCEDURE PRN, Starting Wed | | PM PST | | | | | 12 at 1510, Until Wed | | | | | | | 12 at 1700 | | | | | | + +-------+ +------+---+---+ +---+---+ | | | +---+---+ + +-------+ +--------+---+---+ | fentaNYL citrate (PF) (aka | Given | 06/26/20 | 50 mcg | | | | SUBLIMAZE) injection | | 12 4:24 | | | | | INTRAPROCEDURE PRN, Starting Wed | | PM PST | | | | | 06/26/12 at 1501, Until Wed | | | | | | | 06/26/12 at 1700, sedation | | | | | | + +-------+ +--------+---+---+ +-------+ +---------+---+---+ | Given | 06/26/20 | 100 mcg | | | | | 12 3:01 | | | | | | PM PST | | | | +-------+ +---------+---+---+ +---+---+ | | | +---+---+ + +-------+ +--------+---+---+ | glycopyrrolate (aka ROBINUL) | Given | 06/26/20 | 0.4 mg | | | | injection INTRAPROCEDURE PRN, | | 12 4:19 | | | | | Starting 06/26/12 at 1619, | | PM PST | | | | | Until Sun06/26/12 at 1700 | | | | | | + +-------+ +--------+---+---+ +---+---+ | | | +---+---+ + +-------+ +--------+---+---+ | HYDROmorphone (aka DILAUDID) | Given | 06/26/20 | 0.4 mg | | | | injection INTRAPROCEDURE PRN, | | 12 4:34 | | | | | Starting 06/26/12 at 1634, | | PM PST | | | | | Until Sun06/26/12 at 1700, | | | | | | | sedation | | | | | | + +-------+ +--------+---+---+ +---+---+ | | | +---+---+ + + + +----+---+---+ | lactated ringers IV 10 mL/hr, | given by | 06/26/20 | mL | | | | intravenous, PROCEDURE | | 12 5:06 | | | | | CONTINUOUS, Starting 06/26/12 | anesthes | PM PST | | | | | at 1245, Until Sun06/26/12 at | iology | | | | | | 1736 | | | | | | + + + +----+---+---+ +---------+ +----+---+---+ | New Bag | 06/26/20 | mL | | | | | 12 4:22 | | | | | | PM PST | | | | +---------+ +----+---+---+ | New Bag | 06/26/20 | mL | | | | | 12 2:53 | | | | | | PM PST | | | | +---------+ +----+---+---+ +---+---+ | | | +---+---+ + +-------+ +-------+---+---+ | lidocaine (aka XYLOCAINE MPF) | Given | 06/26/20 | 60 mg | | | | 20 mg/mL (2 %) injection | | 12 3:01 | | | | | INTRAPROCEDURE PRN, Starting Wed | | PM PST | | | | | 06/26/12 at 1501, Until Wed | | | | | | | 12 at 1700 | | | | | | + +-------+ +-------+---+---+ +---+---+ | | | +---+---+ + +-------+ +-------+---+---+ | metoclopramide HCl (aka REGLAN) | Given | 06/26/20 | 10 mg | | | | injection intravenous, | | 12 4:19 | | | | | INTRAPROCEDURE PRN, Starting Wed | | PM PST | | | | | 06/26/12 at 1619, Until Wed | | | | | | | 12 at 1700, nausea/vomiting | | | | | | + +-------+ +-------+---+---+ +---+---+ | | | +---+---+ + +-------+ +------+---+---+ | midazolam (aka VERSED) | Given | 06/26/20 | 1 mg | | | | injection INTRAPROCEDURE PRN, | | 12 2:58 | | | | | Starting 06/26/12 at 1458, | | PM PST | | | | | Until 06/26/12 at 1700, | | | | | | | sedation | | | | | | + +-------+ +------+---+---+ +-------+ +------+---+---+ | Given | 06/26/20 | 1 mg | | | | | 12 2:55 | | | | | | PM PST | | | | +-------+ +------+---+---+ +---+---+ | | | +---+---+ + +-------+ +------+---+---+ | neostigmine (aka PROSTIGMIN) | Given | 06/26/20 | 3 mg | | | | injection intravenous, | | 12 4:19 | | | | | INTRAPROCEDURE PRN, Starting Wed | | PM PST | | | | | 06/26/12 at 1619, Until Wed | | | | | | | 06/26/12 at 1700 | | | | | | + +-------+ +------+---+---+ +---+---+ | | | +---+---+ + +-------+ +------+---+---+ | ondansetron (aka ZOFRAN) | Given | 06/26/20 | 4 mg | | | | injection INTRAPROCEDURE PRN, | | 12 4:19 | | | | | Starting 06/26/12 at 1619, | | PM PST | | | | | Until Sun06/26/12 at 1700 | | | | | | + +-------+ +------+---+---+ +---+---+ | | | +---+---+ + +-------+ +--------+---+---+ | phenylePHrine 100 mcg/mL | Given | 06/26/20 | 50 mcg | | | | injection (OR syringe) | | 12 4:34 | | | | | intravenous, INTRAPROCEDURE PRN, | | PM PST | | | | | Starting 06/26/12 at 1510, | | | | | | | Until Sun06/26/12 at 1700 | | | | | | + +-------+ +--------+---+---+ +-------+ +---------+---+---+ | Given | 06/26/20 | 100 mcg | | | | | 12 4:30 | | | | | | PM PST | | | | +-------+ +---------+---+---+ | Given | 06/26/20 | 100 mcg | | | | | 12 4:22 | | | | | | PM PST | | | | +-------+ +---------+---+---+ +---+---+ | | | +---+---+ + +-------+ +--------+---+---+ | propofol INTRAPROCEDURE PRN, | Given | 06/26/20 | 120 mg | | | | Starting Sun06/26/12 at 1501, | | 12 3:01 | | | | | Until Sun06/26/12 at 1700 | | PM PST | | | | + +-------+ +--------+---+---+ +---+---+ | | | +---+---+ + +-------+ +-------+---+---+ | rocuronium (aka ZEMURON) | Given | 06/26/20 | 30 mg | | | | injection INTRAPROCEDURE PRN, | | 12 3:01 | | | | | Starting Sun06/26/12 at 1501, | | PM PST | | | | | Until Sun06/26/12 at 1700, | | | | | | | Neuromuscular block | | | | | | + +-------+ +-------+---+---+ +---+---+ | | | +---+---+ documented in this encounter
--- OUTSIDE RECORDS SUMMARY | ~2020-05-04 | XMS | Encounter Summary ---
Demographics + + + | Address | [address] | | | [place] [address] | + + + | Home Phone [...] + | Gene Gee | ECON | [address] | | | | | [place], | | | | | [place] [address] | | + + + + + Care Team Providers + +------+ + | Care Kier Hand Name | Role | Phone | + +------+ + | Antony Ribera MD | PCP | | + +------+ + Reason for Visit + +--------+ + | Reason | Onset | Comments | | | Date | | + +--------+ + | Refill Request | 05/09/ | | | | 2009 | | + +--------+ + Encounter Details +--------+--------+ + + + | Date | Type | Department | Care Team | Description | +--------+--------+ + + + | 05/09/ | Refill | Hematology/Medical | Stevan Velazquez, | Refill Request | | 2009 | | Oncology at [facility] | MD [address] | | | | | [address] | [facility] [place] | | | | | Mailcode: [facility] | [address] | | | | | [facility] | [phone] | | | | | and Healing, | | | | | | [facility] | | | | | | Floor [facility] [place] | | | | | | [address] | | | | | | [phone] | | | +--------+--------+ + + + [...] Telephone Encounter - Rosalinda Palacios RN - 05/09/2010 9:32 AM PDTReceived refill request for anastrozole from [facility]. Routing to provider for approval.Electronically sig elenita by Rosalinda Palacios RN at 05/09/2010 9:32 AM PDTdocumented in this encounter Plan of Treatment Not on filedocumented as of this encounter Visit Diagnoses Not on filedocumented in this encounter"
--- OUTSIDE RECORDS SUMMARY | ~2020-05-04 | XMS | Encounter Summary ---
Demographics + + + | Address | [address] | | | [place] [address] | + + + | Home Phone [...] + | Gene Gee | ECON | [address] | | | | | [place], | | | | | [place] [address] | | + + + + + Care Team Providers + +------+ + | Care Research And Development Scientist Name | Role | Phone | + +------+ + | Antony Ribera MD | PCP | | + +------+ + Reason for Visit + + + | Reason | Comments | + + + | Abdominal pain | | + + + | Nausea | | + + + Encounter Details +--------+ + + + + | Date | Type | Department | Care Team | Description | +--------+ + + + + | 02/16/ | Telephone | [facility] | Bob Reyna MD | Abdominal pain; | | 2007 | | [facility] [address] | [address] | Nausea | | | | [address] | [place], [place] | | | | | for Health and | [address] | | | | | [facility] | [phone] | | | | | [place], [place] | | | | | | [address] | | | | | | [phone] | | | +--------+ + + + [...] encounter Miscellaneous Notes Telephone Encounter - Madeline Krishna - 02/17/2008 4:44 PM PDTCalled and spoke to pt's husb and. Pt is in a [facility] ED and was just given morphine. They were coming up from [place], [place] and wanted to come to [facility], but she was having too much abd pain and nausea. He stat es she probably has a small bowel obstruction, which she has had 3 times in the past. He wo uld like to sched a f/u appt w/ Dr. Reyna, but he says he will call our office once she is o ut of the hosp. elephone En nancy - Vanessa Fernando - 02/17/2008 12:48 PM Aniket Flynn calling to speak with Dr Debo aguilar or his nurse - patient is needing to be admitted to local hospital or be transferred to [facility] for possible small bowel obstruction - she would like help in this decision - please c all - pt has advised they may not receive a return call until the next business day Patient was last seen by dr reyna on 06/13/06 Pain Scale: no Recent Surgery or Procedure: no Pharmacy: Pharmacy Preferences: [facility] [address] [place] [address] 9AM-7PM MON-FRI / 9AM-6PM SAT / 10AM-5PM SUN [facility] [address] [place] [address] 8:30AM-5:30PM MON-FRI/CLOSED SAT/CLOSED SUN [facility] [address] [place] [address] 6AM-6PM MON-FRI / 9AM-2PM SAT / CLOSED SUN [facility] [address] [place] [address] 9AM-9PM MON-FRI / 9AM-7PM SAT / 10AM-6PM SUN documented in this encoun ter Plan of Treatment Not on filedocumented as of this encounter Visit Diagnoses Not on filedocumented in this encounter"
--- OUTSIDE RECORDS SUMMARY | ~2020-05-04 | XMS | Encounter Summary ---
Demographics + + + | Address | [address] | | | [place] [address] | + + + | Home Phone [...] + | Gene Sahil | ECON | [address] | | | | | [place], | | | | | [place] [address] | | + + + + + Care Team Providers + +------+ + | Care Optical Goods Worker Name | Role | Phone | + +------+ + | Antony Ribera MD | PCP | | + +------+ + Encounter Details +--------+ + + + + | Date | Type | Department | Care Team | Description | +--------+ + + + + | 07/25/ | Office | Hematology/Medical | Stevan Velazquez, | Progress Note | | 2007 | Visit-Trans | Oncology at [facility] | [address] | | | | purvi | [address] | [place], [place] | | | | | Mailcode: [facility] | [address] | | | | | [facility] | [phone] | | | | | and Healing, | | | | | | [facility] | | | | | | [place], [place] | | | | | | [address] | | | | | | [phone] | | | +--------+ + + + [...] this encounter Progress Notes Stevan Velazquez - 10/22/2007 7:49 PM PDT [id number] SAHIL Holman [id number] Clinic Date: 07/25/2007 Clinic: Medical Oncology Clinic OUTPATIENT CLINIC NOTE Adriana is a pleasant 61-year-old female with [...] cells only. Completion axillary lymph node dissection from no additional lymph node involvement. Adriana is currently undergoing adjuvant chemotherapy with Taxotere plus Cytoxan. Her first treatment was given on May 23, 2007. Her second treatment was given on July 05, 2007. Adriana received surgical exploration of her right axilla to relieve an adhesion in between her first and second cycle of chemotherapies. In addition, Adriana had a basal cell removed over her right-sided scapula area after her second cycle of chemotherapies. Adriana is here today with her for followup appointment. I spent 40 minutes with them, more than half of which was devoted to direct patient consultation. Adriana has a number of comorbidities which include Sjogren's syndrome, history of fistula formation from diverticulitis, bouts of small bowel obstruction on a yearly basis over the past 3 years, and history of a paroxysmal supraventricular tachycardia. Subjective: Adriana did okay after her second cycle of chemotherapies. On the Sunday of the week of chemotherapy, she started to have irregular heartbeats. It lasted about 3 hours during which time she laid down to rest. The irregular heartbeats come in waves each lasting between 5 to 10 seconds. There was no associated chest pain, nausea, vomiting, diaphoresis, or numbness and tingling sensation. There was no fainting sensation on headache. On Sunday and Sunday, she continued to have episodes of irregular heartbeats/palpitation each again lasting for about 5 to 10 seconds. On Sunday, on the second week of treatment, she was having a little bit of palpitation/irregular heartbeats. She would have up to 5 to 10 episodes a day. There was no apparent triggering or alleviating factors. Adriana was on 25 mg of atenolol every day. She spoke with her assistant professor of sociology, Monique Middleton, at [facility]. Her atenolol was increased from 25 mg every morning to 50 mg in the morning and 25 mg in the afternoon. The episodes of irregular heartbeats was very reminiscent of the episodes of palpitation that Adriana experienced before she was starting with her current medication Ethmozine. Her last episode of irregular heartbeat was a week ago right before bedtime and that lasted for several minutes. During the first week of her chemotherapy, she also noted burning sensation in her right lower quadrant. She has a little bit of diarrhea for which she used Imodium to help her regular her bowel habit. Currently, the right lower quadrant discomfort has completely resolved, and she is having heavy bowel movement. There is no passage of blood or tarry stool. She is exercising daily. Her exercise routine is working on an exercise bike for 20 to 30 minutes a day. She denies shortness of breath, cough, sputum production, or hemoptysis. She does feel tired more easily, and she feels slightly short of breath going up and down her stairs. She is working with Physical Therapy 3 times a week and in between she is doing exercise at home. She has excellent range of motion over her right shoulder. There is no swelling over her right upper extremities. She denied mouth sores. There is no back pain or shooting pain down the lower extremities. There is no numbness and tingling sensation over the tips of her finger or her toes. Overall, except for the recurrence of irregular heartbeats, increased fatigue, and one episode of abdominal discomfort right after chemotherapy, Adriana was feeling reasonably well. For a while, last week Adriana was thinking about stopping her chemotherapies. Today, she herself, and her , however, are very motivated and interested in completing her treatment. Observation: Her weight is up to 68 kg, blood pressure 118/62, pulse rate 69, regular respirations 16, and temperature is 98. She has alopecia. Her pain score is 0. Her performance status is between 0 to 1. [...] or rebound tenderness. Her bowel sound is active over all 4 quadrants. There is no knocking pain down her spinal column. No CV angle tenderness. Lymphatic: There is no supraclavicular, infraclavicular, axillary, or cervical lymphadenopathy palpable. Breast: Not done today. Neurologic: Muscle power is 5/5 for both upper and lower extremities and symmetric. No gross sensory deficit. Her gait and cerebellar exam are normal. Examination of her skin show healing horizontal scar measuring about 1 inch in length over her right-sided scapular area. There is no surrounding erythema, induration, local heat, or discharge. Laboratory Data: Her ANC today is 7.6, white count 10.7, hemoglobin 11.6, and platelets 318. Complete metabolic panel is normal except her calcium is low at 3.3. Assessment and Plan: Adriana is a pleasant 61-year-old female with a history of right-sided breast cancer. She is status post right-sided mastectomy, sentinel mapping, and completion lymph node dissection for a T1c grade 1 to grade 2 receptor positive, HER-2 negative infiltrating carcinoma. Two axillary lymph nodes were involved with isolated tumor cells only. Adriana is currently undergoing adjuvant chemotherapy with Taxotere and Cytoxan. Her bone marrow is supported by Neulasta. The last treatment was 3 weeks ago. She is having more fatigue but no neuropathy. Adriana notes increased episodes of irregular heartbeat/palpitation. She has contacted Cardiology, Monique Middleton, in Cardiology Department. Monique's recommendation, Adriana has increased her atenolol from 25 mg a day to 75 mg to 100 mg a day. She has not had any recurrent episodes over the past week. Her arrhythmia medication, Ethmozine, will be increased from 200 mg twice a day to 250 mg twice a day at the recommendation of Ms. Middleton. On physical exam today, her heart rhythm appears to be normal sinus rhythm. She is euvolemic, and there is no evidence of a cardiac failure. Adriana is very interested in completing her therapies. We once again discussed that her breast cancer is expected to carry a quite favorable prognosis. Her benefit from adjuvant systemic therapy is on the order of about 2%. This, however, can be negated if we encounter untoward side effects. I had a conversation with Ms. Middleton, Cardiology, before Adriana's visit. I clarified with Ms. Middleton that Adriana's previous episodes of arrhythmia is paroxysmal atrial fibrillation. There is no previous incidence of ventricular tachycardia. Since she is not very symptomatic from these episodes, it is felt it would be safe to proceed with chemotherapy today. Adriana's arrhythmia medication has been adjusted. Her dose of Ethmozine will be increased from 200 mg to 250 mg 3 times a day. In addition, she is going to take increased dose of atenolol. Adriana had episodes of right lower quadrant abdominal discomfort with alternating diarrhea and constipation. Fortunately, that went away. There was no more constipation episode. We discussed that it is important for her to have an aggressive bowel regimen to prevent development of constipation in particular for the first few days after her chemotherapy as the medication for nausea may cause constipation. We also discussed that it is important for Adriana to increase her oral potassium supplementation. Her potassium today is on a low side at 3.3. She would discuss that further with Jose Kane. We will see her back in 3 weeks for her final cycles of Taxotere and Cytoxan treatment. She will return to clinic tomorrow for Neulasta. I spent an hour with her, more than half of which was devoted to direct patient consultation. Tricia Velazquez M.D., Ph.D. / FRANCA [id number] / [id number] / [id number] / cc: Korey Hurd M.D. Electronically signed by Tricia Velazquez 10-22-2007 07:48:16 PM documented in this enco unter Plan of Treatment Not on filedocumented as of this encounter Visit Diagnoses Not on filedocumented in this encounter"
--- OUTSIDE RECORDS SUMMARY | ~2020-05-04 | XMS | Encounter Summary ---
Demographics + + + | Address | [address] | | | [place] [address] | + + + | Home Phone [...] + | Gene Gee | ECON | [address] | | | | | [place], | | | | | [place] [address] | | + + + + + Care Team Providers + +------+ + | Care Dispatcher Maintenance Name | Role | Phone | + +------+ + | Antony Ribera MD | PCP | | + +------+ + Reason for Referral Diagnostic Testing (Urgent) +--------+--------+ + + + + | Status | Reason | Specialty | Diagnoses / | Referred By | Referred To | | | | | Procedures | Contact | Contact | +--------+--------+ + + + + | Closed | | Radiology | Diagnoses | Sandorh, | Rad Ct Scan | | | | | Breast | Stevan Razo, | [facility] [address] | | | | | cancer (HCC) | [address] | Dereck Cruz | | | | | Procedures | [address] | Deisi Naqvi [facility] | | | | | CT CHEST | [place], [place] | [facility] | | | | | WO CONTRAST | [address] | [address]th Floor | | | | | | Phone: | [place], [place] | | | | | | [phone] | [address] | | | | | | Fax: | Phone: | | | | | | [phone] | [phone] | | | | | | | Fax: | | | | | | | [phone] | +--------+--------+ + + + + Reason for Visit + + + | Reason | Comments | + + + | Follow-up visit | | + + + | Breast cancer | | + + + Encounter Details +--------+---------+ + + + | Date | Type | Department | Care Team | Description | +--------+---------+ + + + | 11/01/ | Office | Hematology/Medical | Stevan Velazquez, | Breast cancer (HCC) | | 2010 | Visit | Oncology at [facility] | MD [address] | (Primary Dx) | | | | [address] | [place], [place] | | | | | Mailcode: CH7M | [phone] | | | | | [facility] | [phone] | | | | | and Healing, | | | | | | [facility] | | | | | | Floor [facility] [place] | | | | | | [address] | | | | | | [phone] | | | +--------+---------+ + + + [...] + | Blood Pressure | 120/69 | 11/01/2010 11:38 AM | | | | | PDT | | + + + + + | Pulse | 65 | 11/01/2010 11:38 AM | | | | | PDT | | + + + + + | Temperature | 37.2 C (98.9 F) | 11/01/2010 11:38 AM | | | | | PDT | | + + + + + | Respiratory Rate | 16 | 11/01/2010 11:38 AM | | | | | PDT | | + + + + + | Oxygen Saturation | 98% | 11/01/2010 11:38 AM | | | | | PDT | | + + + + + | Inhaled Oxygen | - | - | | | Concentration | | | | + + + + + | Weight | 68.9 kg (151 lb 14.4 | 11/01/2010 11:38 AM | | | | oz) | PDT | | + + + + + | Height | 167 cm (5' 5.75") | 11/01/2010 11:38 AM | | | | | PDT | | + + + + + | Body Mass Index | 24.7 | 11/01/2010 11:38 AM | | | | | PDT | | + + + + + documented in this encounter Progress Notes Stevan Velazquez MD - 11/01/2010 11:58 AM PDTFormatting of this note might be different fro m the original. Adriana is a pleasant 65 y/o WF with history of right sided breast cancer. Her tumor was T1cN 0 with two lymph nodes involved with isolated tumor cells only. Her tumor was receptor posit wilbert and HER-2 negative. She completed in the adjuvant setting chemotherapy with four cycles of taxotere plus cytoxan given every three [...] taken off coumadin at that time. She recently completed vein stri pping surgery. She had upper GI endoscopy for recurrent GERD symptoms. Serial CT scans for small pulmonary nodules. T scores minus 1.9 and minus 1.6 in January 2010. Currently receiving reclast from endocrine. FH negative for cancer but mother has osteoporosis SH notable for being , no smoking nor drinking. Came from from [place] had resection for GI bleed for diverticulitis /GI bleed- doing good now Tendinitis- 4 months ago- got a shot- shot did not help her- pain over her left forearm aff ecting the thumb movement. Will see another doctor- working on massage therapist- on TENS un it as well Pain medication- not taking anything- not being able to move- pain is an issue when she tri es to extend her thumb- painful on palpation. It was really bad 6-8 months ago- now calmed d own. Slowly improving Nothing slows her down. Dry eyes with sjogren- salagen was considered- pills Eyebrow tattooing is being considered No numbness or tingling- ROM is good Exercise 2-3 times a week Some discomfort with rapid movement. No swelling of arms or legs Irregular heart beat- seen cardiology recently- no change in med. Some tightness in the morning- discussed with cardiology, over the past 6 months. No angina with exercise Stretching 30 minutes- muscle toning and lifting weight for 30 minutes- 3 times a week Bike- one day a week Not walking much due to winter. No abdominal pain since she has been on fiber for one year now No N/V No fever- chills in the evening- nothing new- started one year prior to diagnosis of cancer . BM is good Barium enema 3 over the past 5 years - good No headache except for sinus allergy Last visit with Sly- last Jun. reclast- up in January- she had two reclast and boniva the year before. Family history of high cholesterol level Patient had history of high chol- tried statin but could not tolerate. Niacin was OK with her before. Vagina dryness- a big issue- tried OTC med. Mood is good Interested in reconstruction now Other ROS is negative No breast specific complaint. Filed Vitals: 11/01/2010 11:38 AM Height: 1.67 m (5' 5.75") Weight: 68.9 kg (151 lb 14.4 oz) BP: 120/69 Pulse: 65 Temp: 37.2 C (98.9 F) TempSrc: Forehead Resp: 16 SpO2: 98% PainSc: 0 - Zero BMI: 24.70 kg/(m^2) Mental status, speech normal rate and pitch, [...] supra-clav or infra-clav LAD Neuro intact Right side breast surgically missing- no palpable lesion or skin foreign exchange trader her right side d chest wall. Left breast exam is without dominant mass or nodule or skin change. No nipple deformity or discharge on the left side. [place] DIGITAL MAMMO DIAG LEFT W/CAD: June 30, 2010 - CC and MLO view(s) were taken of the left breast. Prior study comparison: May 27, 2009, [facility] DIAGNOSTIC MAMMO LEFT w/CAD. May 21, 2008, [facility] DIG MAMMO DIAG LEFT. The patient is status post right mastectomy. No suspicious calcifications, masses, or architectural distortion present in the left breast. The images were obtained using full field digital mammography on the dedicated [employer] System with R2 CAD. Performed at [facility]. ASSESSMENT: Negative - Category 1 RECOMMENDATION: Follow-up diagnostic mammogram of the left breast in [address] chest without contrast. 11/17/2010. HISTORY: Evaluate [...] stability or resolution of the newer nodules. Attending Radiologists: Stuart Colindres M.D. A/P- right sided breast cancer- negative CBE and negative mammogram on the left side- no br east specific complaint. Patient will continue on arimidex. We review once again the side effects [...] yearly and medically managed if clinically indicated. In regards to her pulmonary nodules- many are stable, one has resolved and many 2-3 mm are newer nodules. I would discuss with Dr. Farr to see if and when additional imaging is need ed I discuss with Dr. Heart, Adriana is cleared for reconstruction surgery. In regards to her low bone density, she is being followed by endocrine- she is on calcium a nd vitamin D, she is physically active and she is receiving reclast therapy. Follow up bone density scheduled in January 2011. RTC in 6 months. documented in this en counter Miscellaneous Notes Scan - Other, Faculty - 11/24/2010 12:00 AM PDT can - Other, Faculty - 11/01/2010 12:43 PM PDT documented in this encou nter Plan [...]
--- OUTSIDE RECORDS SUMMARY | ~2020-05-04 | XMS | Encounter Summary ---
Demographics + + + | Address | [address] | | | [place] [address] | + + + | Home Phone [...] + | Gene Gee | ECON | [address] | | | | | [place], | | | | | [place] [address] | | + + + + + Care Team Providers + +------+ + | Care Graduate Teacher Education Name | Role | Phone | + +------+ + | Antony Ribera MD | PCP | | + +------+ + Encounter Details +--------+ + + + + | Date | Type | Department | Care Team | Description | +--------+ + + + + | 12/25/ | Crib Pad Maker | General Internal | Sergio Smith | Sjogren's Syndrome | | 2008 | | Medicine [address] | MD Dianna | ([facility]); Dyspnea; | | | | [address] | | Obstructive Lung | | | | Mailcode: [id number] | | Disease ([facility]) | | | | Outpatient Clinic | | | | | | [facility], [address] | | | | | | [place], [place] | | | | | | [address] | | | | | | [phone] | | | +--------+ + + + [...] this encounter Miscellaneous Notes Telephone Encounter - Sergio Smith MD - 12/25/2008 10:16 AM PDTPlaced order for mary aturation evaluation to be done at time of next visit. documented in this encounter Plan of Treatment + + +--------+ + + | Name | Type | Priori | Associated Diagnoses | Order Schedule | | | | ty | | | + + +--------+ + + | DESATURATION STUDY, | Pulmonary | Routin | Sjogren's Syndrome | Ordered: 12/25/2008 | | PULM FUNCTION LAB | Function | e | ([facility]) Dyspnea | | | | | | Obstructive Lung | | | | | | Disease (HCC) | | + + +--------+ + + documented as of this encounter Visit Diagnoses + + | Diagnosis | + + | Sjogren's syndrome (HCC) Sicca syndrome | + + | Dyspnea Other dyspnea and respiratory abnormality | + + | Obstructive lung disease (HCC) Chronic airway obstruction, not elsewhere classified | + + documented in this encounter"
--- OUTSIDE RECORDS SUMMARY | ~2020-05-04 | XMS | Encounter Summary ---
Demographics + + + | Address | [address] | | | [place] [address] | + + + | Home Phone [...] + | Gene Gee | ECON | [address] | | | | | [place], | | | | | [place] [address] | | + + + + + Care Team Providers + +------+ + | Care Strength And Conditioning Coach Name | Role | Phone | + +------+ + | Antony Ribera MD | PCP | | + +------+ + Encounter Details +--------+ + + + + | Date | Type | Department | Care Team | Description | +--------+ + + + + | 10/06/ | MyChart | Pulmonary & | Thalia Barnard, | RE: Timing of | | 2015 | Encounter | Critical Care | [facility] | ipratropium | | | | Medicine at | [facility] | | | | | [facility] | [address] | | | | | [address] | [address] [place], | | | | | Loop Phys[facility]'s | [place] [address] | | | | | [place] [address] [place] [address] | [phone] | | | | | [place], [place] | | | | | | [address] | | | | | | [phone] | | | +--------+ + + + [...]
--- OUTSIDE RECORDS SUMMARY | ~2020-05-04 | XMS | Encounter Summary ---
Demographics + + + | Address | [address] | | | [place] [address] | + + + | Home Phone [...] + | Gene Gee | ECON | [address] | | | | | [place], | | | | | [place] [address] | | + + + + + Care Team Providers + +------+ + | Care Hyperion Developer Name | Role | Phone | + +------+ + | Antony Ribera MD | PCP | | + +------+ + Reason for Visit + +--------+ + | Reason | Onset | Comments | | | Date | | + +--------+ + | Lab Results | 06/18/ | | | | 2011 | | + +--------+ + Encounter Details +--------+ + + + + | Date | Type | Department | Care Team | Description | +--------+ + + + + | 06/18/ | Telephone | Cardiology | Gary Fuentes MD | Lab Results | | 2011 | | Arrhythmia at [facility] | [address] | | | | | [address] | [address] [place], | | | | | [facility] | [place] [address] | | | | | and [place], | [phone] | | | | | [facility] | | | | | | Floor [place], [place] | | | | | | [address] | | | | | | [phone] | | | +--------+ + + + [...] Telephone Encounter - Monique Fuller RN - 06/18/2012 1:08 PM PSTCalled Adrinaa to let her know that her labwork came and is all normal. She has been feeling ok no further arrhyhtmia s since her ED visit when she had had the flu. she will be coming to [facility] next week for kristian ast surgery; wanted to be sure everything was ok. documented in this encounter Plan of Treatment Not on filedocumented as of this encounter Visit Diagnoses Not on filedocumented in this encounter"
--- OUTSIDE RECORDS SUMMARY | ~2020-05-04 | XMS | Encounter Summary ---
Demographics + + + | Address | [address] | | | [place] [address] | + + + | Home Phone [...] + | Gene Gee | ECON | [address] | | | | | [place], | | | | | [place] [address] | | + + + + + Care Team Providers + +------+ + | Care Auto Radio Mechanic Name | Role | Phone | + +------+ + | Antony Ribera MD | PCP | | + +------+ + Encounter Details +--------+ + + + + | Date | Type | Department | Care Team | Description | +--------+ + + + + | 08/20/ | Documentati | Cardiology | Monique Middleton, | | | 2008 | on | Arrhythmia at [facility] | CREW SUPERVISOR | | | | | [address] | | | | | | [place] for [facility] | | | | | | and Healing, | | | | | | Building | | | | | | Floor [place], [place] | | | | | | [address] | | | | | | [phone] | | | +--------+ + + + [...]
--- OUTSIDE RECORDS SUMMARY | ~2020-05-04 | XMS | Encounter Summary ---
Demographics + + + | Address | [address] | | | [place] [address] | + + + | Home Phone [...] + | Gene Gee | ECON | [address] | | | | | [place], | | | | | [place] [address] | | + + + + + Care Team Providers + +------+ + | Care Groundskeeper Name | Role | Phone | + +------+ + | Antony Ribera MD | PCP | | + +------+ + Encounter Details +--------+ + + + + | Date | Type | Department | Care Team | Description | +--------+ + + + + | 08/21/ | Abstract | Cardiology | Elijah Whalen, | | | 2017 | | Arrhythmia at [facility] | [address] | | | | | [address] | [address] | | | | | [facility] | [place], [place] | | | | | and Healing, | [address] | | | | | [facility] | [phone] | | | | | Floor [place], [place] | | | | | | [address] | | | | | | [phone] | | | +--------+ + + + [...]
--- OUTSIDE RECORDS SUMMARY | ~2020-05-04 | XMS | Encounter Summary ---
Demographics + + + | Address | [address] | | | [place] [address] | + + + | Home Phone [...] + | Gene Gee | ECON | [address] | | | | | [place], | | | | | [place] [address] | | + + + + + Care Team Providers + +------+ + | Care French Binding Folder Name | Role | Phone | + +------+ + | Antony Ribera MD | PCP | | + +------+ + Reason for Visit + +--------+ + | Reason | Onset | Comments | | | Date | | + +--------+ + | Radiology Results | 12/25/ | Chest CT | | | 2013 | | + +--------+ + Encounter Details +--------+ + + + + | Date | Type | Department | Care Team | Description | +--------+ + + + + | 12/25/ | Telephone | Pulmonary & | Thalia Barnard, | Radiology Results | | 2013 | | Critical [facility] | [facility] ([facility]) | | | | Medicine at | [facility] | | | | [facility] | [address] | | | | | [address] | [address] [place], | | | | | [facility] | [place] [address] | | | | | [place], [facility] | [phone] | | | | | [place], [place] | | | | | | [address] | | | | | | [phone] | | | +--------+ + + + [...] this encounter Miscellaneous Notes Telephone Encounter - Thalia Barnard Md - 12/25/2013 10:27 AM PDTReviewed outside chest C T. No significant change in older nodules. Follow-up in January fine. Called patient to discuss . She was ecstatic with news and will follow-up in January. elephone Encounter - Rebecca Contreras - 12/25/2013 8:42 AM PDTCarol called very anxious to get results of CT done yesterday in [place]. Electron ically signed by Rebecca Contreras at 12/25/2013 8:43 AM PDTdocumented in this encounter Plan of Treatment Not on filedocumented as of this encounter Visit Diagnoses Not on filedocumented in this encounter"
--- OUTSIDE RECORDS SUMMARY | ~2020-05-04 | XMS | Encounter Summary ---
Demographics + + + | Address | [address] | | | [place] [address] | + + + | Home Phone [...] + | Gene Gee | ECON | [address] | | | | | [place], | | | | | [place] [address] | | + + + + + Care Team Providers + +------+ + | Care Boiler Out Name | Role | Phone | + +------+ + | Antony Ribera MD | PCP | | + +------+ + Encounter Details +--------+ + + + + | Date | Type | Department | Care Team | Description | +--------+ + + + + | 07/20/ | Hospital | Women[facility] | | | | 2011 | Encounter | Center at [facility] [address] | | | | | | [facility] [address] | | | | | | [place], [address] [place] [address] | | | | | | [place], [place] | | | | | | [address] | | | | | | [phone] | | | +--------+ + + + [...] + documented as of this encounter Procedure Gisele Cohen - 08/03/2011 1:30 PM PSTAssociated Order(s): ORDERS OTHERElectronically sig elenita by Gisele Strong at 08/03/2011 1:30 PM PSTdocumented in this encounter Miscellaneous Notes Larisa - Gisele Strong - 08/09/2011 9:11 AM PSTElectronically signed by Gisele Strong at 9:11 AM PSTdocumented in this encounter Plan of Treatment Not on filedocumented as of this encounter Procedures + +--------+ + + + | Procedure Name | Priori | Date/Time | Associated Diagnosis | Comments | | | ty | | | | + +--------+ + + + | ORDERS OTHER | | 07/20/2011 | | Results for this | | | | 12:00 AM | | procedure are in the | | | | PST | | results section. | + +--------+ + + + documented in this encounter Results ORDERS OTHER (07/20/2011 12:00 AM PST) + + + | Narrative | Performed At | + + + | | | + + + + + | Transcriptions | + + | OtherGisele - 08/03/2011 1:30 PM PST | + + documented in this encounter Visit Diagnoses + + | Diagnosis | + + | Carcinoma in situ of breast | + + documented in this encounter"
--- OUTSIDE RECORDS SUMMARY | ~2020-05-04 | XMS | Encounter Summary ---
Demographics + + + | Address | [address] | | | [place] [address] | + + + | Home Phone [...] + | Gene Gee | ECON | [address] | | | | | [place], | | | | | [place] [address] | | + + + + + Care Team Providers + +------+ + | Care Spectrograph Operator Name | Role | Phone | [...] + + + | 07/22/ | Procedure | Surgical Oncology | [facility], | Follow-up visit | | 2007 | | at [facility] [address] | MD [address] | | | | | [facility] | [place], [place] | | | | | [facility] and Healing, | [address] | | | | | [facility] | [phone] | | | | | [place], [place] | | | | | | [address] | | | | | | [phone] | | | +--------+ + + + [...] + + + | Blood Pressure | 110/62 | 07/22/2007 3:17 PM | | | | | PST | | + + + + + | Pulse | 73 | 07/22/2007 3:17 PM | | | | | PST | | + + + + + | Temperature | 37.1 C (98.7 F) | 07/22/2007 3:17 PM | | | | | PST [...] | Weight | 66.8 kg (147 lb 6 | 07/22/2007 3:17 PM | | | | oz) | PST | | + + + + + | Height | - | - | | + + + + + | Body Mass Index | 24.15 | 05/02/2007 2:06 PM | | | | | PDT | | + + + + + documented in this encounter Patient Instructions Patient Instructions Claribel Garza - 07/22/2007 4:18 PM PSTOncology Patient Information Home Care for Wounds WOUND CARE *Keep wound dry and clean. *Leave steri-strip tapes on until your next appointment or remove after two weeks if they a re still present. *Apply ice intermittently to the affected area for the first 24 hours. DRESSINGS *You may remove the dressing in 1 day. * Steri strips should stay on 1-2 weeks. You may remove them in 2 weeks if they don't come off on their own. You may shower tomorrow aftertoon (Sunday) It's okay to get steri strips wet. DIET AND MEDICATIONS *Eat your normal diet [...] *Tenderness documented in this encounter Progress Notes Claribel Garza - 07/22/2007 5:11 PM PSTAt 1600 (time), prior to the beginning of the proc edure the team paused to verify the patient's identity, as well as the procedure to be perfo rmed and the site. All equipment required was ready and available. The patient was position ed appropriately. Patient/Family Readiness to Learn: The following pertains to: patient and spouse. Accurately explains reasons for visit and accurately relates medical history: yes. Accurately describes the likely alteration in self-care routines/abilities resulting from t reatment: yes. Able to provide names and reasons for taking current medications and dosages: yes. Able to follow proposed treatment plan for diet, activity and/or medication without difficu lty: yes. Learning Needs: None identified and Wound care. Barriers: None identified. Referral To: No referral required. Preferred Learning Method: Verbal and Written. Teaching: Written instructions given and explained: Post op wound care. Patient/Family Response to Teaching: Verbalizes understanding of information/instructions given: Yes. Demonstrates ability to perform required procedure: Not applicable. Additional Notes: patient to check in on or Sunday for wound check and path review . No formal appt made as she will be in OTU receiving chemo. uís Heart - 07/22/2007 5:04 PM PSTI performed a his tory and physical examination of the patient and discussed her management with the resident. I reviewed the resident s note and agree with the documented findings and plan of care. This operative note has been dictated. LU[facility] MD bow machine operator Division of Surgical Oncology [id number] [place], [place] [address] elsi Penn - 07/22/19 08 4:19 PM PST Adriana Flynn is a 61 y.o. female here today. Chief Complaint Patient presents with Follow-up visit Ms. Flynn is s/p punch biopsy of her right scapular lesion with final path showing basal ce ll carcinoma extending into the surgical margin. The patient is here for wider excision of the lesion. SUBJECTIVE: No complaints. Current Medications: Current outpatient prescriptions Medication Sig Dispense Refill Oxycodone HCl 30 mg Oral Tablet take 1 tablet (30 mas needed for pain TAXOTERE IV None Entered Rosuvastatin Calcium (CRESTOR) 5 mg Oral Tablet take 1 tablet (5 mg) by oral route once daily RESTASIS OPHT ou tid Dextran 70-Hypromellose (TEARS NATURALE) Ophthalmic Drops None Entered Prochlorperazine (COMPAZINE) 25 mg Rectal Suppository Take 1 ID Q8-12hrs PRN nausea D2. R0. Lorazepam 1 mg Oral Tablet Take 1 PO Q6-8hrs PRN nausea D20. R2. Atenolol 25 mg Oral Tablet take 1 tablet (25 mg) by oral route once daily Docusate Sodium (STOOL SOFTENER) 100 mg Oral Capsule take 1 capsule (100 mg) by oral ro hillary once daily at bedtime as needed Vitamin A-Vitamin C-Vit E-Min (ANTIOXIDANT FORMULA) Oral Capsule take 1 capsule by oral route once daily with food Glucosamine Sulfate 1,000 mg Oral Capsule None Entered VITAMINS-LIPOTROPICS OR None Entered PROTONIX 40 MG TAB take 1 tablet [...] every 8 hours MULTIVITAMIN CAP None Entered PULMICORT 0.25 MG/2 ML INHL NEBU Allergies/Adverse Drug Reactions: Allergies Allergen Reactions Sulfa (sulfonamides) Swelling-Facial Ciprofloxacin Hives and Rash Triamterene-hydrochlorothiazid BREAST LUMPS Celebrex (celecoxib) Diarrhea and Cough Albuterol Tachycardia Flecainide Acetate Rash Propafenone unknown Tape Adherent Rash OBJECTIVE: NAD, A&Ox3 Back: incision well-healed Vital Signs: BP 110/62 | Pulse 73 | Temp (Src) 98.7 F (37.1 C) (Oral) | Wt 66.849 kg (147 lbs 6.0 oz ) SOURCE OF SPECIMEN:[place] [id number] CLINICAL DESCRIPTION: Punch, 4mm, right upper back; abnormal mole. GROSS DESCRIPTION: Right upper back, punch 0.4 x 0.4 cm, bisected. MICROSCOPIC DESCRIPTION: There are aggregates of cells with hyperchromatic nuclei, scant cytoplasm containing pigment and palisading of the peripheral nuclei. DIAGNOSIS: BASAL CELL CARCINOMA, PIGMENTED. NOTE: The basal cell carcinoma extends to the surgical margins. There is no evidence of a melanocytic neoplasm. Rendering Diagnostician: Esteban Corcoran Jr., M.D. Pathologist ASSESSMENT: A WLE of her right scapula region was performed in clinic today. She will return this Thur or Sunday for her pathology results. PROCEDURE NOTE: Pre-Procedure Dx: Basal Cell Carcinoma of right scaulpar lesion Post-Procedure Dx: same Procedure: Re-exision of right scapular lesion Surgeon: Bernna Heart -attending; Prasanna Penn-auditor internal Anesthesia: local, lidocaine Specimens: re-excised right scapular lesion EBL: minimal No complications. See Orders. documented in this encount er Plan of Treatment + +------+--------+ + + | Name | Type | Priori | Associated Diagnoses | Order Schedule | | | | ty | | | + +------+--------+ + + | DERM PATHOLOGY | Lab | Routin | Basal Cell | Ordered: 07/22/2007 | | | | e | Carcinoma | | + +------+--------+ + + documented as of this encounter Visit Diagnoses + + | Diagnosis | + + | Basal cell carcinoma - Primary Other malignant neoplasm of skin, site unspecified | + + documented in this encounter"
--- OUTSIDE RECORDS SUMMARY | ~2020-05-04 | XMS | Encounter Summary ---
Demographics + + + | Address | [address] | | | [place] [address] | + + + | Home Phone [...] + | Gene Gee | ECON | [address] | | | | | [place], | | | | | [place] [address] | | + + + + + Care Team Providers + +------+ + | Care Tape Recorder Mechanic Name | Role | Phone | + +------+ + | Antony Ribera MD | PCP | | + +------+ + Encounter Details +--------+ + + + + | Date | Type | Department | Care Team | Description | +--------+ + + + + | 04/27/ | Hospital | Cardiac | Sjh, Car Ecg Tech | | | 2010 | Encounter | Non-Invasive Testing | [address] | | | | | at [facility] | [facility] | | | | | [address] | [place] [address] | | | | | [address] | | | | | | [place] floor | | | | | | [place], [place] | | | | | | [address] | | | | | | [phone] | | | +--------+ + + + [...] | 12 LEAD ECG | Routin | 04/27/2011 | Atrial tachycardia | Results for this | | | e | 10:58 AM | 427.89 | procedure are in the | | | | PDT | | results section. | + +--------+ + + + documented in this encounter Results 12 LEAD ECG (04/27/2011 10:58 AM PDT) + + + + + + | Component | Value | Ref Range | Performed | Pathologist | | | | | At | Signature | + + + + + + | VENTRICULAR | 62 | BPM | [facility] | | | RATE | | | OF | | | | | | CARDIOLOGY | | + + + + + + | ATRIAL RATE | 62 | BPM | [facility] | | | | | | OF | | | | | | CARDIOLOGY | | + + + + + + | P-R | 152 | ms | [facility] | | | INTERVAL | | | OF | | | | | | CARDIOLOGY | | + + + + + + | QRS | 86 | ms | [facility] | | | DURATION | | | OF | | | | | | CARDIOLOGY | | + + + + + + | QT | 470 | ms | [facility] | | | | | | OF | | | | | | CARDIOLOGY | | + + + + + + | QTC | 478 | ms | [facility] | | | | | | OF | | | | | | CARDIOLOGY | | + + + + + + | P AXIS | 76 | degrees | [facility] | | [...] | | OF | | | | abnormalityAbnormal | | CARDIOLOGY | | | | ECG"I have personally | | | | | | interpreted this report, | | | | | | either alone or with a | | | | | | trainee."Confirmed by | | | | | | AMOS KENNEY ([id number]) on | | | | | | 04/29/2011 8:50:46 AM | | | | + + + + + + + + | Specimen | + + | | + + + + + | Narrative | Performed At | + + + | Please click | [facility] | | on view image for the detailed interpretation from [email or web address] results. | CARDIOLOGY | + + + + + + + + | Performing | Address | City/State/Zipcode | Phone Number | | Organization | | | | + + + + + | [facility] | [address] | [place], [place] | | | CARDIOLOGY | [address] | [address] | | + + + + + documented in this encounter Visit Diagnoses Not on filedocumented in this encounter
--- OUTSIDE RECORDS SUMMARY | ~2020-05-04 | XMS | Encounter Summary ---
Demographics + + + | Address | [address] | | | [place] [address] | + + + | Home Phone [...] + | Gene Gee | ECON | [address] | | | | | [place], | | | | | [place] [address] | | + + + + + Care Team Providers + +------+ + | Care Oil Well Services Dispatcher Name | Role | Phone | + +------+ + | Antony Ribera MD | PCP | | + +------+ + Encounter Details +--------+ + + + + | Date | Type | Department | Care Team | Description | +--------+ + + + + | 06/20/ | Abstract | Cardiology | aGry Fuentes MD | | | 2011 | | Arrhythmia at [facility] | [address] | | | | | [address] | [place] [address] [place] [address] | | | | | [facility] | [place] [address] | | | | | and Healing, | [phone] | | | | | | | | | | | Floor [place], [place] | | | | | | [address] | | | | | | [phone] | | | +--------+ + + + [...]
--- OUTSIDE RECORDS SUMMARY | ~2020-05-04 | XMS | Encounter Summary ---
Demographics + + + | Address | [address] | | | [place] [address] | + + + | Home Phone | | + + + | Preferred Language | Unknown | + + + | Marital Status | | + + + | Voodoo Affiliation | 1013 | + + + | Race | White | + + + | Ethnic Group | Not or | + + + Author + + + | Author | [facility] | | | and [place] | + + + | Organization | [facility] | | | [...] Providers + +------+ + | Care Electronic Video Games Servicer Name | Role | Phone | + +------+ + PCP | Unavailable | + +------+ + Encounter Details +--------+ + + + + | Date | Type | Department | Care Team | Description | +--------+ + + + + | 04/02/ | Hospital | [facility] | Dilip Frias MD | | | 1999 | Encounter | MED CTR GENERIC OP | [address] | | | | | CONV DEPT [address] | [address] | | | | | [place], | [address] | | | | | [place] [address] | | | | | | [phone] | | | +--------+ + + + [...] | | | | | [place] [address] | | | | | | [phone] | | | | | | | | +--------+ + + + + | 05/19/ | Appointment | Cardiology | Matrin Kelley, | | 2019 | | | MD [address] | | | | | | [place], | | | | | | [place] [address] | | | | | | [phone] | | | | | | | | +--------+ + + + + | 11/26/ | Office | Cardiology | Martin Kelley, | | | 2020 | Visit | | MD [address] | | | | | | [place], | | | | | | [place] [address] | | | | | | [phone] | | | | | | | | +--------+ + + + + documented as of this encounter Visit Diagnoses Not on filedocumented in this encounter"
--- OUTSIDE RECORDS SUMMARY | ~2020-05-04 | XMS | Encounter Summary ---
Demographics + + + | Address | [address] | | | [place] [address] | + + + | Home Phone [...] + | Gene Gee | ECON | [address] | | | | | [place], | | | | | [place] [address] | | + + + + + Care Team Providers + +------+ + | Care Rail Signal Worker Name | Role | Phone | + +------+ + | Antony Ribera MD | PCP | | + +------+ + Reason for Visit + +--------+ + | Reason | Onset | Comments | | | Date | | + +--------+ + | Refill Request | 06/18/ | Tila | | | 2017 | | + +--------+ + Encounter Details +--------+--------+ + + + | Date | Type | Department | Care Team | Description | +--------+--------+ + + + | 06/18/ | Refill | Cardiology | Elijah Whalen, | Refill Request | | 2017 | | Arrhythmia at [facility] | MD [address] | (Xarelto) | | | | [address] | Anthony Lipscomb | | | | | [facility] | [place], [place] | | | | | and Healing, | [address] | | | | | [facility] | [phone] | | | | | Floor [place], [place] | | | | | | [address] | | | | | | [phone] | | | +--------+--------+ + + + [...] Telephone Encounter - Jossue Castillo MA - 06/18/2017 1:59 PM PSTFormatting of this note m ight be different from the original. Refill Request for: Requested Prescriptions No prescriptions requested or ordered in this encounter Patient Last Seen: Last App[facility]ment in [facility] was on 05/16/17 at 1:05 pm [facility] Elijah Whalen MD. Follow Up Plan: No future appointments scheduled in Cardiology.patient is on a recall for elvis pitts up with you next year for may 2018 Please review and sign if appropriate documented in this encounter Plan of Treatment Not on filedocumented as of this encounter Visit Diagnoses Not on filedocumented in this encounter"
--- OUTSIDE RECORDS SUMMARY | ~2020-05-04 | XMS | Encounter Summary ---
Demographics + + + | Address | [address] | | | [place] [address] | + + + | Home Phone [...] + | Gene Gee | ECON | [address] | | | | | [place], | | | | | [place] [address] | | + + + + + Care Team Providers + +------+ + | Care Guest Specialist Name | Role | Phone | [...] + + + + | 10/04/ | Hospital | [facility] [address] | Errol Gold | | | 2012 - | Encounter | [address] | MD [address] | | | | | [place], | [place] | | | 10/05/ | | [place] [address] | [address] [place], [place] | | | 2012 | | [phone] | [address] | | | | | | | [...] Admission Date: 10/04/2012 Discharge Date: 10/05/2012 Service: [facility] Plastic Surgery Diagnoses Principal Final Diagnosis: 1. [...] at discharge as appropriate: BP: 101/53 mmHg (10/05/12633) Pulse: 66 (10/05/12633) Resp: 20 (10/05/12633) Weight: 66.3 kg (146 [...] once daily. fluticasone (FLONASE) 50 mcg/actuation Nasal D[place], Suspension Instill 1 [place] into each no stril two times daily. [...] narcotic pain medications, please call the clinic ([phone] ) by 2 pm on for any [...] doctor through the plastic surgery clinic at [phone]. Please ke ep in mind that you [...] Discharging Attending: MD Liv Huffman MD Resident, [facility], Dept. of Surgery Pager [phone] documented in this encounter Discharge Instructions Instructions [...] Seb Potts MD - 10/05/2012 7:28 AM [facility] PLASTIC SURGERY PROGRESS NOTE: Hospital Day:1 Author; [...] Plan for discharge today SEB POTTS MD Hand Stripper Department of Plastic Surgery [facility] 10/05/2012 7:28 AM Mark Ahn Md - 10/04/2012 11:14 AM PDTPatient to be admitted to telemetry for 23h observation aft er bilateral breast surgery due to history of arrhythmia. Please see Pre-operative Medicine recommendations. Please page resident mechatronics technologist with any questions. documented in this encounter H&P Notes Other, Faculty - 10/09/2012 11:06 AM PDTElectronically signed by Faculty Other at 3 11:06 AM PDTdocumented in this encounter Procedure Notes Other, Faculty - 10/09/2012 11:06 AM PDTAssociated Order(s): PROCEDURE NOTEElectronically s igned by Gisele Other at 10/09/2012 11:06 AM Errol Ahn Md - 10/04/2012 5:56 P M PDTAssociated Order(s): PROCEDURE NOTEPLASTIC SURGERY OPERATIVE NOTE Procedure Date: 10/04/2012 Attending Physician: Mark Gold MD Assistants: Santiago Quijano PA-C Preoperative Diagnosis: Acquired absence of breast, right History of breast cancer Disproportion of breast reconstruction Postoperative Diagnosis: As above Procedure Performed: right breast tissue signaling project engineer removal with placement of silicone implants, right breast caps ulotomy and lateral capsulorrhaphy, left breast mastopexy for symmetry Anesthesia: GETA Estimated Blood Loss: 75 cc Specimens: right and left breast Complications: none Findings: Right breast implant: Allergan Natrelle Smooth Round Style 20 Silicone Gel Breast Implant , Reference Number: [id number], Serial Number: [id number] Left breast: 50 g removed Disposition: Extubated, awake and alert to PACU. Statement of Faculty Presence: Dr. Gold was present for the entirety of this case. Statement of Medical Necessity: Ms. Flynn is a 67 y.o. female with a history of breast canc er who has undergone right mastectomy with tissue signaling project engineer reconstruction. At this time, raquel presents for right tissue signaling project engineer removal and implant placement with capsulectomy or [...] was incised using e lectrocautery. The tissue signaling project engineer was encountered and noted to be intact. [...] interrup dean 2-0 Polysorb sutures in a [id number] fashion. A 450 cc style 20 sizer [...] in stable condition. Addendum: A certified physician's pediatric medical assistant was required because no qualified surgeon/president was available for this procedure. documented in [...] - 013 11:06 AM PDT valuation - Laisha Saldivar - 10/05/2012 6:26 AM PDTProblem: General Plan [...] not want to wear continuous pulse oximeter, notified, and orders received, My recommendations forward:continue with current plan Patient Stability:Moderately Stable andoff - Bev Saldivar - 10/05/2012 6:24 AM PDT . Ortho [...] Discharge plan: this morning please lan of Juan Antonio - Laisha Antoine - 10/05/2012 3:18 AM [...] wear remote tele monitor. Maintain contact with [employer]. Continue to assess p t Interventions that [...] remote tele monitor. Maintain contact with 11K telegraph repeater mechanic. Continue to assess p t andoff - [...] and as needed, call light in reach. acqueline Roman - 10/04/2012 12:45 PM PDTMeets Phase I [...] Actual Procedure Performed: BREAST RECONSTRUCTION IMPLANT EXCHANGE (REGIONAL DIRECTOR OF ADMISSIONS OUT/IMPLANT IN) SALINE - RIGHT BREAST TIS CANDIE REGIONAL DIRECTOR OF ADMISSIONS EXCHANGE TO SILICONE IMPLANT WITH CAPSULOTOMY, CAPSULECTOMY, [...] pain medication information: no Functional Epidural: N/A ORNAMENTAL IRON WORKER HELPER: No Respiratory: RR: 15 , O2 Sat: 99 %, O2 Delivery: Nasal cannula Breath Sounds: WDL JOSEFINA: clear LLL: clear RUL: clear RLL: clear MAURO No Comment: Cardiac: BP: 135/73 mmHg HR: 73 GI: Nausea/Vomiting Status: No Signs/Symptoms: Interventions: Assessment: Comments:no nausea : Last void:Pre-op Contact Name: gene Contact Number: [phone] Family contacted: Yes Comment:1245 Belongings:with family documented [...] PDT | Deformity of | | | (REGIONAL DIRECTOR OF ADMISSIONS | al | | reconstructed breast | [...] | + + + + + | [facility] [address] | [address] | [place] [address] | | | SERVICES, | [address] [...] [facility] | [address] | [place] [address] | | | SERVICES, | [address] [...] Cervantes, | | | | | | PathologistT:10/07/12/ | | | | | | Clinical [...] nodules. | | | | | | Web Marketing Specialist | | | | | | sections [...] Cervantes | | | | | | DeclanPathologistJanettei [...] + + + | [facility] | [address] | [place], [facility] | | | PATHOLOGY | [address] | | | + + + + + documented in this encounter Visit Diagnoses + + | Diagnosis | + + | Breast cancer (HCC) - Primary Malignant neoplasm of breast (female), unspecified site | + + | Atrial tachycardia 427.89 Other specified cardiac dysrhythmias | + + | Carcinoma in situ of breast | + + | Acquired Absence of Breast Acquired absence of breast and nipple | + + | Deformity and disproportion of reconstructed breast | + + | Other pulmonary embolism and infarction | + + | Dyspnea Other dyspnea and respiratory abnormality | + + | Lymphedema Other lymphedema | + + | Nausea with vomiting | + + | Encounter for antineoplastic chemotherapy | + + documented in this encounter [...] | | TIMES DAILY, First dose on Sun | | [...] | | | mcg/actuation nasal spray 1 Dacoma | | 13 10:23 | | | [...] | | | | | CONTINUOUS, Starting Sun10/04/12 | | AM PDT | | | | | at 0615, Until Sun10/04/12 at | | | | | | | 1419 | | | | | | + +---------+ + + +---+ +---+---+ | | | +---+---+ + +-------+ + +---+---+ | senna-docusate (akester Gould) | Given | 10/05/19 | 1 tablet [...]
--- OUTSIDE RECORDS SUMMARY | ~2020-05-04 | XMS | Encounter Summary ---
Demographics + + + | Address | [address] | | | [place] [address] | + + + | Home Phone [...] + | Gene Gee | ECON | [address] | | | | | [place], | | | | | [place] [address] | | + + + + + Care Team Providers + +------+ + | Care Float Operator Name | Role | Phone | + +------+ + PCP | Unavailable | + +------+ + Encounter Details +--------+ + + + + | Date | Type | Department | Care Team | Description | +--------+ + + + + | 07/01/ | Results | | Raymond Hansen MD | | | 2004 | Only | | [address] | | | | | | [place], | | | | | | [place] [address] | | +--------+ + + + + [...] X-RAY CHEST 1 VIEW | Urgent | 07/01/2004 | | Results for this | | | | 7:19 AM | | procedure are in the | | | | PST | | results section. | + +--------+ + + + documented in this encounter Results CHEST 1 VIEW (07/01/2004 7:19 AM PST) + + + + + + | Component | Value | Ref Range | Performed | Pathologist | | | | | At | Signature | + + + + + + | CHEST, 1 | Radiologist 1: [facility]ICCI, | | | | | VIEW | Declan AGUILAREXAM: AP | | | | | | chest. COMPARISON: | | | | | | 06/29/04 FINDINGS: | | | | | | Patient has had | | | | | | abdominal surgery in the | | | | | | interval.Right jugular | | | | | | venous catheter has been | | | | | | placed with tip in | | | | | | thesuperior vena cava. | | | | | | There is no | | | | | | pneumothorax. There | | | | | | are low lungvolumes. | | | | | | There are bilateral | | | | | | pleural effusions, right | | | | | | greaterthan left. | | | | | | There is bibasilar | | | | | | atelectasis. | | | | | | Concurrent | | | | | | aspirationis a | | | | | | possibility. There is | | | | | | a thin lucency along the | | | | | | leftmediastinum which | | | | | | may represent | | | | | | pneumomediastinum, | | | | | | presumablyrelated to the | | | | | | abdominal surgery. | | | | | | IMPRESSION: 1. Interval | | | | | | abdominal surgery. | | | | | | Right jugular venous | | | | | | catheter tipin the | | | | | | superior vena cava. 2. | | | | | | Low lung volumes with | | | | | | bibasilar atelectasis, | | | | | | possiblyconcurrent | | | | | | aspiration. 3. | | | | | | Bilateral pleural | | | | | | effusions, right greater | | | | | | than left. 4. | | | | | | Probable | | | | | | pneumomediastinum which | | | | | | is likely related | | | | | | toabdominal surgery. | | | | | | Free air below the | | | | | | diaphragm is noted. | | | | + + + + + + + + | Specimen | + + | | + + + +---------+ + + | Performing | Address | City/State/Zipcode | Phone Number | | Organization | | | | + +---------+ + + | [facility] DEPARTMENT OF | | | | | RADIOLOGY | | | | + +---------+ + + documented in this encounter Visit Diagnoses Not on filedocumented in this encounter"
--- OUTSIDE RECORDS SUMMARY | ~2020-05-04 | XMS | Encounter Summary ---
Demographics + + + | Address | [address] | | | [place] [address] | + + + | Home Phone [...] + | Gene Gee | ECON | [address] | | | | | [place], | | | | | [place] [address] | | + + + + + Care Team Providers + +------+ + | Care Five Roll Refiner Batch Mixer Name | Role | Phone | + +------+ + | Antony Ribera MD | PCP | | + +------+ + Reason for Visit + +--------+ + | Reason | Onset | Comments | | | Date | | + +--------+ + | Pre-operative | 06/19/ | | | evaluation | 2016 | | + +--------+ + Encounter Details +--------+ + + + + | Date | Type | Department | Care Team | Description | +--------+ + + + + | 06/19/ | Telephone-S | Preoperative | | Pre-operative | | 2017 | cheduled | [facility] at | | evaluation | | | | [facility] | | | | | | Stay [address] | | | | | | [address] | | | | | | Mailcode: [id number] | | | | | | [facility] | | | | | | [address] [place], [place] | | | | | | [address] | | | | | | [phone] | | | +--------+ + + + [...] | 06/26/17; 0920; Jj VARGAS VAT; | 06/26/1720 by | 06/26/17 112 by | | miah | Left; Anterior; Antecubital; 20 | Xander Kendall, | Rebecca Macedo, | | IV | g; Lidocaine; Yes; Positive; | RN | RN | | | 06/26/17; 1125; [...] of this encounter Patient Instructions Patient Instructions Sebastián Fallon, RN - 06/19/2017 3:00 PM PSTFormatting of this note shane ht be different from the original. PREOPERATIVE INSTRUCTIONS Do not eat or drink anything after midnight the night before surgery. TAKE the following medications with a sip of water on the morning of surgery: Do NOT take the following medications on the morning of surgery: Current Medication List Name Sig BUDESONIDE 180 MCG/ACTUATION BREATH ACTIVATED POWDER INHALER Inhale 3 puffs by mouth two ti mes daily. CITRACAL PLUS D 315 MG-200 UNIT TABLET 2 tabs in evening and liquid calcium citrate in AM CARBOXYMETHYLCELLULOSE SODIUM 0.5 % EYE DROPS IN A DROPPERETTE 1 drop 3 Times Daily EZETIMIBE 10 MG TABLET Take 10 mg by mouth once daily. FLUTICASONE 50 MCG/ACTUATION NASAL SPRAY,SUSPENSION Instill 1 spray into each nostril two t imes daily. IPRATROPIUM BROMIDE 0.02 % SOLUTION FOR INHALATION Inhale 2.5 mL(ONE AMPULE) via nebulizer every six hours as needed (Shortness of breath). LACTOBACILLUS COMB [id number] 300 MILLION CELL-250 MG CAPSULE Take by mouth once daily. LEVALBUTEROL 1.25 MG/3 ML SOLUTION FOR NEBULIZATION Inhale 3 mL every six hours as needed ( shortness of breath). Indications: Acute Asthma Attack LEVALBUTEROL HFA 45 MCG/ACTUATION AEROSOL INHALER Inhale 1-2 puffs by mouth every six hours as needed. Indications: Bronchospasm Prevention LORAZEPAM 1 MG TABLET 0.5 Tabs Q HS PRN. METOPROLOL TARTRATE 50 MG TABLET Take 75mg TID. May take an additional 25mg PRN palpitatio ns MULTIVITAMIN OR one daily OFLOXACIN 0.3 % EYE DROPS as needed. POLYETHYLENE GLYCOL 3350 17 GRAM/DOSE ORAL POWDER Mix 17 g in liquid and drink once daily. POTASSIUM CHLORIDE ER 20 MEQ TABLET,EXTENDED RELEASE(PART/CRYST) Take 1 tablet by mouth onc e daily. RABEPRAZOLE 20 MG TABLET,DELAYED RELEASE Take 20 mg by mouth every twelve hours. RIVAROXABAN 20 MG TABLET Take 1 tablet by mouth once daily with dinner TIOTROPIUM BROMIDE 1.25 MCG/ACTUATION MIST FOR INHALATION Inhale 2 puffs once daily. Indica tions: Maintenance Therapy for Asthma ANTIOXIDANT FORMULA CAPSULE take 1 capsule by oral route once daily with food VITAMIN D ORAL 3000 IU daily Unless otherwise directed by your surgeon, do not take any Aspirin, vitamin E or non-lizzy roidal anti-inflammatory (NSAIDs i.e. Advil, Aleve, Ibuprofen) or herbal supplements seven d ays prior to your surgery. These drugs may interfere with normal blood clotting and may caus e excessive bleeding and bruising during or after the surgery. If you are taking Coumadin (warfarin), Plavix or any other blood thinners please let you r surgical team know as medication changes will be necessary. If you need a pain medication for general purposes, use Tylenol as directed. If you are in doubt about any medications that you are taking, please contact our office . Important Guidelines Do not shave the surgical area Do not smoke, drink alcohol or use recreational drugs for 24 hours before your surgery Do not eat any hard candy or chew gum after midnight the night before your surgery. Watch for any change in your health condition. Let your surgeon know right away if you do not feel well. Do not wear makeup, perfume, lotions or powder. Remove any nail australian from at least one fingernail. Do not wear any jewelry to the hospital. Wear loose, comfortable clothing. Bring the case and solution for your contact lenses or wear your glasses. Leave all your valuables at home. Allow enough travel time so you re not late for your check in for surgery. Take a bath or shower and remember to shampoo your hair using your usual hair product be fore your arrival at the hospital. Please remember to brush your teeth the night before and the morning of your procedure. STEFFI GUIDE TO GENERAL SKIN CLEANSING AT HOME BEFORE SURGERY General Skin Cleansing Instructions: Hibiclens is not to be used on the head or face, keep out of the eyes, ears and mouth. Hibiclens is not to be used in the genital area. If this is the first time using Hibiclens, please perform an allergy test by placing 1-2 dr ops of soap on your forearm. Observe this area for 4-5 minutes. If you develop a rash, pleas e DO NOT use this product. Please inform the preop team on the morning of surgery so that th is product is NOT used during your surgery. *See Hibiclens label for full product information and precautions. When you bathe or shower the night before your surgery: If you plan to wash your hair, do so with your regular shampoo. Then rinse hair and body th oroughly to remove any shampoo residue. Wash your face with your regular soap or water only. Thoroughly rinse your body with warm water from neck down. Then use Hibiclens as you would any other liquid soap. Please do not put the Hibiclens on a wash cloth, apply directly to the skin and wash gently. Apply the minimum amount of Hibicl ens necessary to cover the skin. Leave the Hibiclens on your skin for 1 minute, then rinse o ff. Rinse thoroughly with warm water. Towel dry with a clean towel. Dress in clean sleepwear and sleep on freshly laundered sheets. When using Hibiclens for a second day in a row (morning of surgery, as soon as you wake up) : Shower/bathe again using Hibiclens in the same method as described above and wear freshly l aundered clothes. Do not apply any lotions, deodorants, powders or perfumes to the body areas that have been cleaned with Hibiclens. Preventing post op complications Use an incentive spirometer or peep breathe [...] stand or walk. Surgery Check in Locations Day Stay Unit [facility], fourth floor Room 8097 [facility], fourth floor Admitting [facility], ninth floor lobby [facility], sixth floor Surgery Check in Time: Someone from your surgeon's office or [facility] hospital will provide you with information regarding your check in time. If you have any questions about this, pl ease contact your surgeon's office. Going Home Your surgical team will decide when you are medically ready to go home. If you are released to go home on the same day as your procedure/surgery please note the following: You will not be able to drive. You will be required to have a competent adult drive you or accompany you by taxi or pub lic transportation on the day of discharge. It is also required that you have a competent adult assist you and look after you on the first night after you have undergone regional blocks (72 hours for patients going home with regional block pump), deep sedation, and/or general anesthesia. If you stayed in the hospital after surgery, please arrange for your ride to come for yo u around 9AM on the day your doctor says you can go home. Check out time is 11AM. If you have questions or concerns after you go home, call your doctor s office. If it is after office hours, call the [facility] control room operator at [phone] and ask them to page your doc tor. PREOPERATIVE INSTRUCTIONS Do not eat or drink anything after midnight the night before surgery. TAKE the following medications with a sip of water on the morning of surgery: METOPROLOL TARTRATE 50 MG TABLET LORAZEPAM 1 MG TABLET BUDESONIDE 180 MCG/ACTUATION BREATH ACTIVATED POWDER INHALER Do NOT take the following medications on the morning of surgery: CITRACAL PLUS D 315 MG-200 UNIT TABLET 2 tabs in evening and liquid calcium citrate in AM CARBOXYMETHYLCELLULOSE SODIUM 0.5 % EYE DROPS IN A DROPPERETTE 1 drop 3 Times Daily EZETIMIBE 10 MG TABLET Take 10 mg by mouth once daily. FLUTICASONE 50 MCG/ACTUATION NASAL SPRAY,SUSPENSION Instill 1 spray into each nostril two t imes daily. LACTOBACILLUS COMB [id number] 300 MILLION CELL-250 MG CAPSULE Take by mouth once daily. LEVALBUTEROL HFA 45 MCG/ACTUATION AEROSOL INHALER Inhale 1-2 puffs by mouth every six hours as needed. Indications: Bronchospasm Prevention MULTIVITAMIN OR one daily OFLOXACIN 0.3 % EYE DROPS as needed. POLYETHYLENE GLYCOL 3350 17 GRAM/DOSE ORAL POWDER Mix 17 g in liquid and drink once daily. POTASSIUM CHLORIDE ER 20 MEQ TABLET,EXTENDED RELEASE(PART/CRYST) Take 1 tablet by mouth onc e daily. RABEPRAZOLE 20 MG TABLET,DELAYED RELEASE Take 20 mg by mouth every twelve hours. RIVAROXABAN 20 MG TABLET Take 1 tablet by mouth once daily with dinner ANTIOXIDANT FORMULA CAPSULE take 1 capsule by oral route once daily with food VITAMIN D ORAL 3000 IU daily Unless otherwise directed by your surgeon, do not take any Aspirin, vitamin E or non-lizzy roidal anti-inflammatory (NSAIDs i.e. Advil, Aleve, Ibuprofen) or herbal supplements seven d ays prior to your surgery. These drugs may interfere with normal blood clotting and may caus e excessive bleeding and bruising during or after the surgery. If you are taking Coumadin (warfarin), Plavix or any other blood thinners please let you r surgical team know as medication changes will be necessary. If you need a pain medication for general purposes, use Tylenol as directed. If you are in doubt about any medications that you are taking, please contact our office . Important Guidelines Do not shave the surgical area Do not smoke, drink alcohol or use recreational drugs for 24 hours before your surgery Do not eat any hard candy or chew gum after midnight the night before your surgery. Watch for any change in your health condition. Let your surgeon know right away if you do not feel well. Do not wear makeup, perfume, lotions or powder. Remove any nail australian from at least one fingernail. Do not wear any jewelry to the hospital. Wear loose, comfortable clothing. Bring the case and solution for your contact lenses or wear your glasses. Leave all your valuables at home. Allow enough travel time so you re not late for your check in for surgery. Take a bath or shower and remember to shampoo your hair using your usual hair product be fore your arrival at the hospital. Please remember to brush your teeth the night before and the morning of your procedure. Preventing post op complications Use an incentive spirometer or peep breathe [...] stand or walk. Surgery Check in Locations Day Stay Unit [facility], fourth floor Room 4519 Surgery Check in Time: Someone from your surgeon's office or [facility] will provide you with information regarding your check in time. If you have any questions about this, pl ease contact your surgeon's office. Going Home Your surgical team will decide when you are medically ready to go home. If you are released to go home on the same day as your procedure/surgery please note the following: You will not be able to drive. You will be required to have a competent adult drive you or accompany you by taxi or pub lic transportation on the day of discharge. It is also required that you have a competent adult assist you and look after you on the first night after you have undergone regional blocks (72 hours for patients going home with regional block pump), deep sedation, and/or general anesthesia. If you stayed in the hospital after surgery, please arrange for your ride to come for yo u around 9AM on the day your doctor says you can go home. Check out time is 11AM. If you have questions or concerns after you go home, call your doctor s office. If it is after office hours, call the [facility] control room operator at [phone] and ask them to page your doc tor. documented in this encounter Miscellaneous Notes Telephone Encounter - Fallon Lowery RN - 06/19/2017 5:00 PM PSTPhone appointment complete d as scheduled. Documentation to be found in the Notes and Trans Encounter tab in Geni. Elec tronically signed by Tee Ojeda MD,MPH at 06/21/2017 3:28 PM PSTdocumented in this enc ounter Plan of Treatment Not on filedocumented as of this encounter Visit Diagnoses Not on filedocumented in this encounter"
--- OUTSIDE RECORDS SUMMARY | ~2020-05-04 | XMS | Encounter Summary ---
Demographics + + + | Address | [address] | | | [place] [address] | + + + | Home Phone | | + + + | Preferred Language | Unknown | + + + | Marital Status | | + + + | Nondenominational Affiliation | CHR | + + + [...] + | Gene Gee | ECON | [address] | | | | | [place], | | | | | [place] [address] | | + + + + + Care Team Providers + +------+ + | Care Operator Name | Role | Phone | + +------+ + | Antony Ribera MD | PCP | | + +------+ + Encounter Details +--------+ + + + + | Date | Type | Department | Care Team | Description | +--------+ + + + + | 08/02/ | Abstract | Cardiology | Elijah Whalen, | | | 2018 | | Arrhythmia at [facility] | [address] | | | | | [address] | [address] | | | | | [facility] | [place], [place] | | | | | and Healing, | [address] | | | | | [facility] | [phone] | | | | | Floor [place], [place] | | | | | | [address] | | | | | | [phone] | | | +--------+ + + + [...]
--- OUTSIDE RECORDS SUMMARY | ~2020-05-04 | XMS | Encounter Summary ---
Demographics + + + | Address | [address] | | | [place] [address] | + + + | Home Phone [...] + | Gene Gee | ECON | [address] | | | | | [place], | | | | | [place] [address] | | + + + + + Care Team Providers + +------+ + | Care Joy Operator Name | Role | Phone | [...] + + | 12/29/ | Office | Pulmonary & | Sergio Desai | Obstructive Airway | | 2008 | Visit | Critical Care | MD Dianna | Disease ([facility]); | | | | Medicine at | | Pulmonary Embolism | | | | [facility] | | ([facility]); Lung Nodule; | | | | [address] | | Personal History of | | | | [facility] | | Breast Cancer | | | | [place], [address] Floor | | | | | | [place], [place] | | | | | | [address] | | | | | | [phone] | | | +--------+---------+ + + + [...] + + + | Blood Pressure | 120/84 | 12/29/2008 10:13 AM | | | | | PDT | | + + + + + | Pulse | 68 | 12/29/2008 10:13 AM | | | | | PDT | | + + + + + | Temperature | 36.6 C (97.8 F) | 12/29/2008 10:13 AM | | | | | PDT | | + + + + + | Respiratory Rate | 16 | 12/29/2008 10:13 AM | | | | | PDT | | + + + + + | Oxygen Saturation | 99% | 12/29/2008 10:13 AM | | | | | PDT | | + + + + + | Inhaled Oxygen | - | - | | | Concentration | | | | + + + + + | Weight | 64.9 kg (143 lb) | 12/29/2008 10:13 AM | | | | | PDT | | + + + + + | Height | 166.4 cm (5' 5.5") | 12/29/2008 10:13 AM | | | | | PDT | | + + + + + | Body Mass Index | 23.43 | 12/29/2008 10:13 AM | | | | | PDT | | + + + + + documented in this encounter Progress Notes Virginia Horton MD - 01/22/2009 12:44 PM PDTPt transfer of care from Dr. Hernandez to Dr. Desai. 62F with h/o Sjogren's, fibromyalgia, chronic rhinosinusitis, GERD, COPD/Asthma, and breast cancer (s/p resection/chemo) who was referred to Pulmonary clinic when a stress ECHO estima dean PA systolic pressure at 60-65, consistent with pulmonary hypertension. CT chest (to carrie luate for possible ILD given low DLCO at outside hosp of 67% and possible basical findings o n outside CXR, and to evaluate for PE as a cause of PH) was performed on 09/17 and showed: a n onocclusive PE at the bifurcation of the R interlobar artery (subacute to chronic in appeara nce) without infarct or evidence of RH strain. 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 There was also an area of small nodules in the LLL, inflammatory in appea anthony. A follow up CT was performed on 12/28/08 and showed near complete resolution of previ ously described inflammatory lingular nodules and A stable 3 mm right upper lobe pulmonary nodule. No evidence of persistent PE. At her initial visit (with Dr. Hernandez and Dr. Trimble) she was referred for RH cath to formall y evaluate her for PH. Right heart cath was performed on 09/17/08 and was negative for pulmon tavares hypertension with PA pressures of 28/10 (mean 18). Today, repeat PFTs show minimal obstruction, suggestion of small airways disease (with decr eased FEF 25-75), normal lung volumes with a low/normal RV/TLC ratio which is not indicative of hyperinflation or early airways closure. DLCO was normal at 94% predicted. Six minute walk was performed. Patient walked 1100 feet in 6 minutes. Prior to walk test, the at rest h eart rate was 70 and the SPO2 was 98. After walk heart rate was 108 and SPO2 was 9. 2 The patient's test was performed on room air. A/P: It is possible that the patient's prior abnormal PA pressures (on stress echo) were r eflective of acute PE. The appearance of the PE on the 09/17 CT was more subacute/chronic and her RHC did not show elevated PA pressures which is reassuring. The PE is not longer eviden t on repeat CT on 12/28 and the patient remains anticoagulated. Additionally, the area of no dular inflammation has resolved as has her gas transfer defect. She may still have some yajaira y mild small airways disease/bronchiolitis obliterans (suggested on 09/17 CT and by decreased FEF 25-75), which may be associated with Sjogrens, however she has symptomatically improved and she has no hyperinflation/early airways closure. We will continue to follow and will ch louie PFTs at next visit (or sooner if she become more symptomatic). 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 We are still awaiting the results of her nocturnal desat study and walking desat eval at he r home altitude Rhinitis: continue nasal steroid and saline irrigation. I performed a history and physical examination of the patient and discussed her management with the resident. I reviewed the resident s note and agree with the documented findings and plan of care. VIRGINIA HORTON MD PULMONARY FACULTY [address] [place] [address] Mailcode: [id number] [address] [address] edergreen, Sergio Bustamante MD - 12/29/2008 12:42 PM PDT Pulmonary Clinic Follow Up Date: 12/29/2008 Primary Care Provider: Antony Ribera MD [facility] [address] [place] [address] Problem List: 1. Pulmonary embolism, identified on CTA 09/17/08 2. Sjogren's syndrome 3. GERD 4. Asthma 5. Chronic rhino-sinusitis 6. History of breast cancer (dx 02/19, [id number] s/p mastectomy & chemo, on Arimidex) 7. Mitral valve prolapse 8. Supraventricular tachycardia, on dofetilide 9. Osteopenia Interval History: The patient is a 63 y/o female with a history of breast cancer, Sjogren's, GERD, chronic rh inosinusitis and asthma who presents to clinic for follow up. She was initially seen in the pulmonary clinic in August 2008 for evaluation of pulmonary hypertension based on an elev ated RVSP on stress echocardiogram. Following that visit she underwent right heart catheter ization, which revealed normal pulmonary and right heart pressures. At the time of her last visit, she reported dyspnea on exertion but otherwise was experiencing minimal pulmonary sy mptoms. According to the patient she is doing significantly better than she was several mon ths ago. Reports increased exercise tolerance with less shortness of breath with exertion. States that she is able to walk inclines with her and carry on a conversation while walking. No dyspnea at rest. No cough. The patient reports that her asthma has been well controlled. Takes her regular maintenance medications daily as prescribed. Reports that as thma symptoms do not wake her up at night. Cannot remember the last time she needed to use a rescue inhaler. No ER visits or hospitalizations for asthma symptoms. Is taking the warf arpit as prescribed; reports that she gets her INR checked regularly and that she is always t herapeutic with an INR in the 2-2.5 range. Review of systems: As above. All other systems negative or unchanged from previous visit. Past Social and Family History: No significant changes since last visit. Current Medications: anastrozole (ARIMIDEX) 1 mg Take 1 Tab by mouth once daily. atenolol 25 mg Oral Tablet Take 25 mg by mouth once daily. budesonide 180 mcg/Inhalation Inhalation Aerosol Inhale 2 puffs in the am and 1 puff i n the pm calcium citrate-vitamin D 315-200 mg-unit Tablet 2 tabs twice a day COUMADIN OR Take 7 mg by mouth once daily. CRESTOR 5 mg Oral Tablet Take 5 mg by mouth once daily. Docusate Sodium 100 mg Oral Capsule 1 pill by mouth 2 X per day DOFETILIDE 500 mcg Oral Capsule Take 1 Cap by mouth two times daily. fluticasone 50 mcg/Actuation Nasal [place] Instill 2 Sprays into each nostril once daily. Glucosamine 1,000 mg Oral Tablet one daily MULTIVITAMIN OR one daily potassium chloride SR 20 mEq Oral Tab Take 1 Tab by mouth once daily. PROTONIX 40 mg Oral Tablet take 1 tablet (40mg) by oral route once daily tiotropium 18 mcg Inhalation Capsule, Inhale 1 Cap once daily. Vitamin A-Vitamin C-Vit E-Min Oral Capsule take 1 capsule by oral route once daily VITAMIN D ORAL 2000 IU daily Vitals BP 120/84 Pulse 68 Temp(Src) 36.6 C (97.8 F) (Oral) Resp 16 Ht 1.664 m (5' 5.5") Wt 64.864 kg (143 lb) SpO2 99% on room air Physical Exam: General: Pleasant, awake & alert, no signs of distress. BMI 23.4 SHANON: Normocephalic, PERRLA, EOMI, external ears without lesions. Throat: No erythema, exudate, or tonsillar enlargement Neck: No evidence of elevated jugular veins or lymphadenopathy Lungs: Clear to auscultation bilaterally, no wheezes, rhonchi or crackles Cardiac: Regular. No murmur. Extremities: No cyanosis, clubbing, or edema Musculoskeletal: No obvious joint deformities noted. Neurologic: Exam grossly non-focal. Skin: No evidence of rash. Lab Results Component Value Date/Time INR 2.16 12/29/08 11:[address] 12/28/2008: There is no pericardial or pleural effusion. Right axillary clips are noted. No enlarged hi lar or mediastinal lymph nodes are identified. The heart, aorta and great vessels are normal . Right mastectomy is again noted. There is a stable 3 mm nodule in the right upper lobe, im age 58. Peripheral inferior posterior right lower lobe scarring, image 130, measuring 5 mm i s unchanged. Previously described lingular nodular opacities have nearly essentially resolved with minimal scarring remaining in the same loca tion. No new pulmonary nodules are identified. Pulmonary Function Tests from 12/28/2008: FEV1/FVC PreFEV1 PreFVC 72 2.30 (90%) 3.19 (96%) TLC VC RV 5.32 (101%) 3.55 (107%) 1.77 (82%) DLCO 17.0 (94%) Flow-volume loops were reviewed. Results are consistent with normal physiology but demonstr ate mild scooping suggestive of mild airway obstructive. Six minute walk test: Walked 1100 feet. Beginning HR 70 and SpO2 98. Ending HR 108 and Sp O2 92. Desaturation Study: At rest, SpO2 on room air 98%. After exercise, SpO2 on room air 94%. Assessment/Plan: The patient is a 63 y/o female with a complicated medical history including history of jillian st cancer on hormonal therapy, Sjogren's disease, chronic sinusitis, recent pulmonary emboli sm on warfarin, and asthma who presents to clinic for follow up. 1. Pulmonary Embolism Unclear when it occurred as it was found on CTA as part of pulmonary hypertension workup, w hich was subsequently ruled out. Given that arimidex is associated with deep venous thrombo sis and thromboembolic disease, suspect that her DVT and PE could have been related to the m edication. Would therefore continue the warfarin therapy as long as she is on hormonal ther apy for management of her breast cancer. -- continue warfarin 2. COPD/Asthma Pt's prior PFTs with obstruction and low DLCO (67%) consistent with COPD however patient bhakta s no personal history of tobacco use, though does have heavy second hand smoke exposure. He r symtpoms are well controlled on ICS +spiriva plus prn albuterol. She has not been able to tolerate higher doses or long-acting versions of beta agonists due to SVT. If her symptoms remain well controlled, would consider step down approach and trial off inhaled corticoster oid. -- continue budesonide -- continue spiriva -- albuterol rescue inhaler -- continue H2 efren and PPI therapy for GERD -- continue flonase and neilmed sinus irrigations to control sinus disease, followup with er ENT 3. Lung Nodules -- repeat CT scan of chest in 1 year Return to clinic in 1 year The patient was evaluated and discussed with attending physician Dr. Horton who agrees with the above assessment and plan. Dr. Horton and I spent a total of 60 minutes with the patient, over half of which were devot ed to counseling. SERGIO DESAI MD PULMONARY RESIDENT [address] [place] [address] documented in this encounter Procedure Notes Other Faculty - 12/29/2008 11:29 AM PDTAssociated Order(s): RADIOLOGY documented in this encou nter Miscellaneous Notes Scan - Other, Faculty - 01/12/2009 12:00 AM PDT documented in this encou nter Plan of Treatment Not on filedocumented as of this encounter Procedures + +--------+ + + + | Procedure Name | Priori | Date/Time | Associated Diagnosis | Comments | | | ty | | | | + +--------+ + + + | RADIOLOGY | | 12/29/2008 | | Results for this | | | | 11:29 AM | | procedure are in the | | | | PDT | | results section. | + +--------+ + + + documented in this encounter Results IGE, SERUM (01/14/2010 1:13 PM PDT) + [...] + + + + | [facility] | [address] | [place] [address] | | | PATHOLOGY | [address] | | | + + + + + RADIOLOGY (12/29/2008 11:29 AM PDT) + + + | Narrative | Performed At | + + + | | | + + + + + | Procedure Note | + + | Gisele Strong - 12/29/2008 11:29 AM PDT | | | + + documented in this encounter Visit Diagnoses + + | Diagnosis | + + | Obstructive airway disease (HCC) Chronic airway obstruction, not elsewhere classified | + + | Pulmonary embolism (HCC) Other pulmonary embolism and infarction | + + | Lung nodule Other diseases of lung, not elsewhere classified | + + | Personal history of breast cancer Personal history of malignant neoplasm of breast | + + documented in this encounter
--- OUTSIDE RECORDS SUMMARY | ~2020-05-04 | XMS | Encounter Summary ---
Demographics + + + | Address | [address] | | | [place] [address] | + + + | Home Phone [...] + | Gene Gee | ECON | [address] | | | | | [place], | | | | | [place] [address] | | + + + + + Care Team Providers + +------+ + | Care Public Health Teacher Name | Role | Phone | + +------+ + | Antony Ribera MD | PCP | | + +------+ + Encounter Details +--------+ + + + + | Date | Type | Department | Care Team | Description | +--------+ + + + + | 06/20/ | Abstract | Cardiology | Gary Fuentes MD | | | 2011 | | Arrhythmia at [facility] | [address] | | | | | [address] | [place] [address] [place] [address] | | | | | [facility] | [place] [address] | | | | | and Healing, | [phone] | | | | | | | | | | | Floor [place], [place] | | | | | | [address] | | | | | | [phone] | | | +--------+ + + + [...] + + | INR | Routin | 06/17/2012 | | Results for this | | | e | | | procedure are in the | | | | | | results section. | + +--------+ + + + | VITAMIN D, | Routin | 06/17/2012 | | Results for this | | 25-HYDROXY, SERUM | e | | | procedure are in the | | | | | | results section. | + +--------+ + + + | LIVER SET | Routin | 06/17/2012 | | Results for this | | (AST,ALT,BILI | e | | | procedure are in the | | TOTAL,BILI | | | | results section. | | DIRECT,ALK | | | | | | PHOS,ALB,PROT TOTAL) | | | | | + +--------+ + + + | BASIC METABOLIC SET | Routin | 06/17/2012 | | Results for this | | (NA, K, CL, TCO2, | e | | | procedure are in the | | BUN, CR, GLU, CA) | | | | results section. | + +--------+ + + + | CBC ONLY | Routin | 06/17/2012 | | Results for this | | | e | | | procedure are in the | | | | | | results section. | + +--------+ + + + | FREE T4 | Routin | 06/17/2012 | | Results for this | | | e | | | procedure are in the | | | | | | results section. | + +--------+ + + + | TSH | Routin | 06/17/2012 | | Results for this | | | e | | | procedure are in the | | | | | | results section. | + +--------+ + + + | LIPID SET (TRIG, T | Routin | 06/17/2012 | | Results for this | | CHOL, HDL, CALC LDL) | e | | | procedure are in the | | | | | | results section. | + +--------+ + + + documented in this encounter Results BASIC METABOLIC SET (NA, K, CL, TCO2, BUN, CR, GLU, CA) (06/17/2012) + +-------+ + + + | Component | Value | Ref Range | Performed | Pathologist | | | | | At | Signature | + +-------+ + + + | GLUCOSE, | 92 | 70 - 100 mg/dL | [facility] | | | PLASMA | | | LAB - | | | (LAB) | | | [place] | | + +-------+ + + + | BUN, PLASMA | 10 | 6 - 23 mg/dL | [facility] | | | (LAB) | | | LAB - | | | | | | [place] | | + +-------+ + + + | CREATININE | 0.86 | 0.50 - 1.50 | [facility] | | | PLASMA | | mg/dL | LAB - | | | (LAB) | | | [place] | | + +-------+ + + + | SODIUM, | 139 | 132 - 143 | [facility] | | | PLASMA | | mmol/L | LAB - | | | (LAB) | | | [place] | | + +-------+ + + + | POTASSIUM, | 4.5 | 3.6 - 5.1 | [facility] | | | PLASMA | | mmol/L | LAB - | | | (LAB) | | | [place] | | + +-------+ + + + | CHLORIDE, | 103 | 95 - 112 mmol/L | [facility] | | | PLASMA | | | LAB - | | | (LAB) | | | [place] | | + +-------+ + + + | TOTAL CO2, | 27 | 19 - 31 mmol/L | [facility] [...] + + + | URIC ACID, | 5.0 | 2.3 - 6.6 mg/dL | [facility] [...] - | [address] | [place], [place] | [phone] | | [place] | | | | + + + + + | [facility] - | | [place], [place] | | | [place] | | | | + + + + + CBC ONLY (06/17/2012) + + + + + + | Component | Value | Ref Range | Performed | Pathologist | | | | | At | Signature | + + + + + + | WHITE CELL | 6.3 | 4.5 - 11.0 K/cu | [facility] | | | COUNT | | mm | LAB - | | | | | | [place] | | + + + + + + | RED CELL | 5.01 | 3.8 - 5.1 M/cu | [facility] | | | COUNT | | mm | LAB - | | | | | | [place] | | + + + + + + | HEMOGLOBIN | 15.1 | 12.0 - 16.0 | [facility] | | | | | g/dL | LAB - | | | | | | [place] | | + + + + + + | HEMATOCRIT | 45.4 (A) | 35 - 45 % | [facility] | | | | | | LAB - | | | | | | [place] | | + + + + + + | MCV | 90.6 | 81 - 99 fL | [facility] | | | | | | LAB - | | | | | | [place] | | + + + + + + | MCH | 30 | 27 - 33 pg | [facility] | | | | | | LAB - | | | | | | [place] | | + + + + + + | MCHC | 33 | 30 - 36 g/dL | [facility] | | | | | | LAB - | | | | | | [place] | | + + + + + + | PLATELET | 245 | 140 - 440 K/cu | [facility] | | | COUNT | | mm | LAB - | | | | | | [place] | | + + + + + + | NEUTROPHIL | 58.9 | 39 - 80 % | [facility] | | | % | | | LAB - | | | | | | [place] | | + + + + + + | LYMPHOCYTE | 33.0 | 24 - 44 % | [facility] | | | % | | | LAB - | | | | | | [place] | | + + + + + + | MONOCYTE % | 5.3 | 0 - 12 % | [facility] | | | | | | LAB - | | | | | | [place] | | + + + + + + | EOS % | 2.0 | 0 - 6 % | [facility] | | | | | | LAB - | | | | | | [place] | | + + + + + + | BASO % | 0.8 | 0 - 2 % | [facility] | | | | | | LAB - | | | | | | [place] | | + + + + + + | RDW | 13.9 | 10.5 - 15.0 % | [facility] | | | | | | LAB - | | | | | | [place] | | + + + + + + + + | Specimen | + + | Blood - Blood | + + + + + + + | Performing | Address | City/State/Zipcode | Phone Number | | Organization | | | | + + + + + | [facility] - | [address] | [place], [place] | [phone] | | [place] | | | | + + + + + | [facility] - | | [place], [place] | | | [place] | | | | + + + + + FREE T4, SERUM (06/17/2012) + +-------+ + + + | Component | Value | Ref Range | Performed | Pathologist | | | | | At | Signature | + +-------+ + + + | FREE T4, | 8.37 | 4.5 - 11.7 | [facility] | | | SERUM | [...] + + | [facility] - | [address] | [place] | [phone] | | [place] | | | | + + + + + | [facility] - | | [place], [place] | | | [place] | | | | + + + + + INR (06/17/2012) + +---------+ + + + | Component | Value | Ref Range | Performed | Pathologist | | | | | At | Signature | + +---------+ + + + | INR | 1.1 (A) | 2.0 - 3.0 INR | [facility] | | | | | [...] - | [address] | [place], [place] | [phone] | | [place] | | | | + + + + + | [facility] - | | [place], [place] | | | [place] | | | | + + + + + LIPID SET (TRIG, T CHOL, HDL, CALC LDL) (06/17/2012) + +-------+ + + + | Component | Value | Ref Range | Performed | Pathologist | | | | | At | Signature | + +-------+ + + + | CHOLESTEROL | 179 | <200 mg/dL | [facility] | | | (LAB) | | | LAB - | | | | | | [place] | | + +-------+ + + + | TRIGLYCERID | 88 | 30 - 150 mg/dL | [facility] | | | ES | | | LAB - | | | | | | [place] | | + +-------+ + + + | HDL | 41.1 | >40 mg/dL | [facility] | | | CHOLESTEROL | | | LAB - | | | | | | [place] | | + +-------+ + + + | VLDL | 18 | 4 - 40 mg/dL | [facility] | | | CHOLESTEROL | | | LAB - | | | | | | [place] | | + +-------+ + + + | LDL | 120 | <100 mg/dL | [facility] | | [...] + + | [facility] - | [address] | [place] | [phone] | | [place] | | | | + + + + + | [facility] - | | [place], [place] | | | [place] | | | | + + + + + LIVER SET (AST,ALT,BILI TOTAL,BILI DIRECT,ALK PHOS,ALB,PROT TOTAL) (06/17/2012) + + + + + + | Component | Value | Ref Range | Performed | Pathologist | | | | | At | Signature | + + + + + + | BILIRUBIN | 0.7 | 0.0 - 1.2 | [facility] | | | TOTAL | | Transcutaneous | LAB - | | | | | Bilirubinometer | [place] | | + + + + + + | ALK PHOS | 57 | 30 - 128 U/L | [facility] | | | | | | LAB - | | | | | | [place] | | + + + + + + | TOTAL | 6.5 | 6.0 - 8.0 g/dL | [facility] | | | PROTEIN, | | | LAB - | | | PLASMA | | | [place] | | | (LAB) | | | | | + + + + + + | BILIRUBIN | 0.15 (A) | 0 - 0.1 mg/dL | [facility] | | | DIRECT | | | LAB - | | | | | | [place] | | + + + + + + | ALBUMIN, | 4.1 | 3.5 - 5.0 g/dL | [facility] | | | PLASMA | | | LAB - | | | (LAB) | | | [place] | | + + + + + + | AST(SGOT) | 34 | 0 - 40 U/L | [facility] | | | | | | LAB - | | | | | | [place] | | + + + + + + | ALT (SGPT) | 53 (A) | 0 - 46 U/L | [facility] | | | | | | LAB - | | | | | | [place] | | + + + + + + | GLOBULIN | 2.4 | 1.8 - 3.5 | [facility] | | | | | | LAB - | | | | | | [place] | | + + + + + + + + | Specimen | + + | Blood - Blood | + + + + + + + | Performing | Address | City/State/Zipcode | Phone Number | | Organization | | | | + + + + + | [facility] - | [address] | [place], [place] | [phone] | | [place] | | | | + + + + + | [facility] - | | [place], [place] | | | [place] | | | | + + + + + TSH (06/17/2012) + +-------+ + + + | Component | Value | Ref Range | Performed | Pathologist | | | | | At | Signature | + +-------+ + + + | TSH | 1.12 | 0.270 - 4.20 | [facility] | | | | | [...] [address] | [place], [place] | [phone] | | [place] | | | | + + + + + | [facility] - | | [place] | | | [place] | | | | + + + + + VITAMIN D, 25-HYDROXY, SERUM (06/17/2012) + +-------+ + + + | Component | Value | Ref Range | Performed | Pathologist | | | | | At | Signature | + +-------+ + + + | VITAMIN D | 57 | 30 - 100 ng/mL | [facility] [...] + + | [facility] - | [address] | [place], [place] | [phone] | | [place] | | | | + + + + + | [facility] - | | [place], [place] | | | [place] | | | | + + + + + documented in this encounter Visit Diagnoses Not on filedocumented in this encounter"
--- OUTSIDE RECORDS SUMMARY | ~2020-05-04 | XMS | Encounter Summary ---
Demographics + + + | Address | [address] | | | [place] [address] | + + + | Home Phone [...] + | Gene Sahil | ECON | [address] | | | | | [place], | | | | | [place] [address] | | + + + + + Care Team Providers + +------+ + | Care Automatic Fancy Machine Operator Name | Role | Phone | + +------+ + PCP | Unavailable | + +------+ + Encounter Details +--------+ + + + + | Date | Type | Department | Care Team | Description | +--------+ + + + + | 07/23/ | Discharge | | Summary, Discharge | D/C Summary ODDS | | 2005 | Summary-Tra | | | | | | nscribed | | [...] as of this encounter Discharge Summaries Interface, Lace Stripper In - 02/12/2005 12:07 AM PDT [id number] 07/27/2004 [id number] SAHIL Holman Admission Date: 07/17/2004 Discharge Date: 07/23/2004 Staff Physician: Katie Callahan M.D. Principal Final Diagnosis: Partial small bowel obstruction. Additional Diagnoses: 1. Status post liver cyst unroofing and marsupialization June 29, 2004. 2. History of supraventricular tachycardia. 3. Sjogren syndrome. 4. Mitral valve prolapse. 5. Asthma. 6. Gastroesophageal reflux disease. 7. Carpel tunnel syndrome. 8. Fibromyalgia. 9. Fibrocystic breast disease. 10. Esophageal dysmotility. Principal Procedure: Bowel_decompression. Additional Procedures: 1. Intravenous (IV) hydration. 2. Computed tomography scan (CT). 3. Gastrograph and small bowel followthrough. 4. Abdominal series times three. 5. Electrocardiogram (EKG). 6. Cardiology consult. Reason for Admission: The patient is a 58-year-old female who underwent exploratory laparotomy on June 29, 2004, with excision and resection of multiple liver cysts, including alcohol therapy, and marsupialization of these cysts. She did well postoperatively and was discharged on July 07, 2004. Three days prior to admission, she developed abdominal pain and went to the emergency department in [place]. She had a CT scan there showing multiple air fluids levels, but no free air. A nasogastric tube placed an immediately 600 cc of fluid was expressed. The next shift also saw a resulting 600 cc of fluid coming from the nasogastric tube. She was transferred to [facility] on July 17, 2004, for further management, as well as cardiology consult concerning her history of supraventricular tachycardia. Past Medical History: As above. ALLERGIES: SULFA, THIAZIDE, CIPRO. Review of Systems: The patient endorses some nausea, but no vomiting. She does endorse a bowel movement one day prior to transfer to [facility]. She denies any fevers, chills, sweating, she denies any chest pain, denies any racing heart, denies any shortness of breath, denies orthopnea, dyspnea on exertion, paroxysmal nocturnal dyspnea. She does endorse some pain at the site of incision. However, this has been stable since discharge. Physical Exam: VITAL SIGNS: On admission, temperature is 36.5. Pulse is 100. Respiratory rate is 28. Blood pressure is 134/66. Saturations are 90% on room air. NEUROLOGICAL: She is alert and oriented times three, she is in no acute distress. CARDIOVASCULAR: Regular rate and rhythm. LUNGS: Clear to auscultation bilaterally. ABDOMEN: Distended, tender to palpation diffusely, there is no guarding, no rebound, there are positive bowel sounds. The incision is clean, dry, and intact. EXTREMITIES: Warm and well perfused, there is no clubbing, cyanosis, or edema. Imaging: Electrocardiogram (EKG) shows normal sinus rhythm, there are no Q-waves. Laboratory Studies: From [place] on July 16, 2004, white count 7.7, platelets are 549,000, hematocrit is 38.3, sodium 138, potassium 3.8, chloride 106, bicarb 29, BUN 6, creatinine 0.7, glucose is 129, AST is 17, ALT is 23, alkaline phosphatase is 97, direct bilirubin is 0.5, total bilirubin is 0.1, direct bilirubin is 0.5, albumin is 2.7, calcium is 8.2, magnesium 1.9, phosphorus is 3.0, troponins were checked at this time showing less than 0.01, a creatine kinase is 27, a creatine kinase NB is 1.9. Hospital Course: The patient was admitted to the hospital on July 17, 2004, for n.p.o. status NDG compression and IV fluids. Troponins were also checked at this time, and a cardiology consult was called for the morning of July 18, 2004. The patient received an abdominal series on July 18, 2004, showing no acute obstruction, however, air fluid levels were still present. The patient was followed with serial abdominal series and on July 19, 2004, received a small bowel followthrough with gastrographing. This scan revealed what could potentially have been a mass in the stomach, as well as likely incomplete bowel obstruction. Radiology believed at this time, that it was safest to evaluate the potential mass, as well as the bowel obstruction with the CT scan. The CT scan was performed on July 20, 2004, revealing the mass in the stomach was most likely a loop of bowel compressing the stomach. There was also an incomplete partial small bowel obstruction noted on CT scan. On July 20, 2004, the patient began to have loose liquidy stools. On July 21, 2004, she noticed that she was beginning to pass gas. She also noticed that the contrast that she had taken from the CT scan was also passing. Her abdominal pain had decreased tremendously and she was ambulating well. The injury was clamped at this time, and four-hour residuals showed a total of 15 cc. On July 21, 2004, the nasogastric tube was pulled, the patient continued to have bowel movements; these bowel movements were loose and liquidy at first. However, over the course of the night of July 21, 2004, as well as during the day on July 22, 2004, her bowel movements began to solidify. The patient started on a clear liquid diet at this time, she tolerated this diet well. The patient was discharged on July 23, 2004, having normal bowel movements and able to tolerate a soft diet. Condition on Discharge: Not dictated. Discharge Medication(s): 1. Digoxin 0.25 mg p.o. everyday. 2. Amiodarone 100 mg p.o. b.i.d. 3. Aspirin 325 mg p.o. everyday. 4. Protonix 40 mg p.o. everyday. 5. Esterase patch apply as directed. Discharge Instruction(s): Diet: The patient is to have a soft diet for five days. Activity: The patient may participate in normal as tolerated. Follow-up: The patient is to follow-up in Katie Callahan M.D., clinic in approximately one month. FabrizioDeclan Nash M.D. MS/y00 P [id number] cc: Electronically signed by Katie Callahan 08-09-2004 01:11:25 PM documented i n this encounter Plan of Treatment Not on filedocumented as of this encounter Visit Diagnoses Not on filedocumented in this encounter"
--- OUTSIDE RECORDS SUMMARY | ~2020-05-04 | XMS | Encounter Summary ---
Demographics + + + | Address | [address] | | | [place] [address] | + + + | Home Phone [...] + | Gene Gee | ECON | [address] | | | | | [place], | | | | | [place] [address] | | + + + + + Care Team Providers + +------+ + | Care Tar Roofer Name | Role | Phone | + +------+ + | Antony Ribera MD | PCP | | + +------+ + Reason for Visit + + + | Reason | Comments | + + + | Follow-up encounter | | + + + Office Visit [...] | | | | | INTERNAL | [place], [place] | | | | | | MEDICINE | [address] Phone: | | | | | | [address] | [phone] | | | | | | [place] | Fax: | | | | | | [address] | [phone] | | | | | | [place], | | | | | | | [place] [address] | | | | | | | Phone: | | | | | | | [phone] | | | | | | | Fax: | | | | | | | [phone] | | +--------+--------+ + + + + Encounter Details +--------+---------+ + + + | Date | Type | Department | Care Team | Description | +--------+---------+ + + + | 01/27/ | Office | Cardiology | Gary Fuentes MD | Atrial tachycardia | | 2009 | Visit | Arrhythmia at [facility] | [address] | 427.89; Atypical | | | | [address] | [place] [address] [facility], | chest pain; | | | | [facility] | [place] [address] | Hyperlipidemia | | | | and Healing, | [phone] | | | | | [place] [address], [facility] | | | | | | Floor [place], [place] | | | | | | [address] | | | | | | [phone] | | | +--------+---------+ + + + [...] + + + | Blood Pressure | 128/82 | 01/27/2010 9:04 AM | | | | | PDT | | + + + + + | Pulse | 59 | 01/27/2010 9:04 AM | | | | | PDT | | + + + + + | Temperature | - | - | | + + + + + | Respiratory Rate | - | - | | + + + + + | Oxygen Saturation | 100% | 01/27/2010 9:04 AM | | | | | PDT | | + + + + + | Inhaled Oxygen | - | - | | | Concentration | | | | + + + + + | Weight | 65.5 kg (144 lb 6.4 | 01/27/2010 9:04 AM | | | | oz) | PDT | | + + + + + | Height | 168.3 cm (5' 6.25") | 01/27/2010 9:04 AM | | | | | PDT | | + + + + + | Body Mass Index | 23.13 | 01/27/2010 9:04 AM | | | | | PDT | | + + + + + documented in this encounter Patient Instructions Patient Instructions Gary Fuentes MD - 01/27/2010 9:58 AM PDTYou are doing well. I would tr y low dose of Pravastatin for cholesterol. No other changes. documented in this encounter Progress Notes Gary Fuentes MD - 01/27/2010 2:40 PM PDTATTENDING NOTE: I saw and evaluated Ms. Flynn with Dr. Brito. Management discussed in detail. I agree wi th the findings, assessment and plan of care as per Dr. Brito's note. ebbie Brito MD - 01/27/2010 9:41 AM P DT OUTPATIENT FOLLOW UP Author: DEBBIE BRITO MD Attending: Dr. Gary Fuentes ID: Adriana Flynn is a 64 y.o. female with PMH of fibromyalgia, sjogren's dz, multiple SBO's, a nd atrial tachycardia s/p ablation in 12/2004 and 09/2005, initially on morizicine, then switc hed to dofetilide in 12/2007. She presents for followup visit for her atrial tachycardia. Interval History: Has had some "extra hard thumps" in evenings felt in chest, last just a few seconds, reliev ed spontaneously. On her PCP's advice, increased her atenolol to 25 bid from 25qd. Seems t o be helping, symptoms now less frequent. No associated lightheaddedness, no prolonged palp itations. Momentarily takes her breath away, but resolves quickly. She used to have these symptoms more frequently but they are better since on dofetilide. Otherwise no significant or prolonged palpitations. Hiking daily, without any limiting symptoms. She is tolerating the dofetilide without issue. She also reports, "some bad heart burn, squeezing in middle of chest" occurring once/3 mo. Occurs at rest, no assoc sob or diaphoresis with squeezing, no increased frequency of sx. Climbs stairs daily, no chest squeezing with exertion. Sx were worse when taking anti-GERD Rx which she stopped and now no longer having symptoms. She also has questions about her cholesterol medication. Has been unable to tolerate zetia , crestor, and zocor 2/2 to muscle pain or abd upset. She was recently prescribed pravastati n by her PCP but has not started taking it yet. She thinks her cholesterol has improved sli ghtly with diet and exercise changes. Past Medical History Diagnosis Date Sjogrens syndrome [...] budesonide (PULMICORT FLEXHALER) 180 mcg/Inhalation Inhalation Aerosol Vycon Breath Activat ed, Inhale 1 Puff two times daily. 2 puffs in the am and 1 puff in the pm calcium citrate-vitamin D (CITRACAL + D) 315-200 mg-unit Oral Tablet, 2 tabs twice a day DOFETILIDE 500 mcg Oral Capsule, Take 1 Cap by mouth two times daily. fluticasone (FLONASE) 50 mcg/Actuation Nasal [place], Suspension, Instill 2 Sprays into each nostril [...] Capsule, take 1 capsule by oral ro coquille once daily with food VITAMIN D ORAL, 2000 IU daily zoledronic acid (RECLAST) 5 mg/100 mL Intravenous Solution, Inject into the vein (IV). John rly- rcvd 01/19/09 (Not in a hospital admission) Allergies Allergen [...] review of systems negative Physical Exam: BP 128/82 | Pulse 59 | Ht 1.683 m (5' 6.25") | Wt 65.499 kg (144 lb 6.4 oz) | SpO2 100% General Appearance: pleasant, NAD, AAO x 3 HEENT: sclera anicteric, MM moist, conj pink Neck: no thyromegaly, no lymphadenopathy, JVP not elevated @ 30degrees Respiratory: CTA bilaterally Cardiovascular: regular, no murmurs Gastrointestinal: soft, nt, nd, bs + Extremitites: wwp, no edema, no clubbing, distal pulses intact Data: Lab Results Component Value Date CHOL Combined. 12/29/2008 LDL 130* 12/29/2008 HDL Combined. 12/29/2008 TRI Combined. 12/29/200811/2009: TC-224 LDL-160 HDL-45 TG-95 Impression: Adriana Flynn is a 64 y.o. female with PMH of atrial tachycardia s/p 2 ablation attempt wh o presents for followup visit. She is doing well and having minimal symptoms. She is havin g intermittent what sounds like isolated palpitations which have improved with increasing he r atenolol dose. She is not having any prolonged palpitations or symptoms limiting her acti vity. She seems to be tolerating her current anti-arrhythmic regimen well. Plan: 1. Atrial Tachycardia: -continue dofetilide. No medication adjustments at this time. -needs repeat ECG at next f/u visit -f/u in 1 year or sooner if needed. 2. Nonanginal Chest pain: Low suspicion that this pain represents angina given character as described in HPI. She do es have HLD and famhx of heart disease. Reassuringly she had a normal stress echo last year . At this point advised her to monitor. If symptoms worsen or become more frequent or conc erning in character could consider further eval. 3. Hyperlipidemia Advised that she begin low dose pravastatin as prescribed by her PCP. If she does not tole rate this could could consider referral to lipid specialist in endocrinology given intoleran ce of most anti-lipid rx. Also going to continue with lifestyle modifications. Pt was staffed with Dr. Fuentes, attending, who agrees with my assessment and plan. Debbie Brito MD Internal Medicine Resident Pager [phone] documented in th is encounter Plan of Treatment Not on filedocumented as of this encounter Visit Diagnoses + + | Diagnosis | + + | Atrial tachycardia 427.89 Other specified cardiac dysrhythmias | + + | Atypical chest pain Other chest pain | + + | Hyperlipidemia Other and unspecified hyperlipidemia | + + documented in this encounter
--- OUTSIDE RECORDS SUMMARY | ~2020-05-04 | XMS | Encounter Summary ---
Demographics + + + | Address | [address] | | | [place] [address] | + + + | Home Phone [...] + | Gene Gee | ECON | [address] | | | | | [place], | | | | | [place] [address] | | + + + + + Care Team Providers + +------+ + | Care Employee Communications Specialist Name | Role | Phone | + +------+ + | Alec Hill MD | PCP | | + +------+ + Encounter Details +--------+--------+ + + + | Date | Type | Department | Care Team | Description | +--------+--------+ + + + | 06/18/ | Refill | Pulmonary & | Juana Kilgore MD | | | 2019 | | Critical Care | [address] | | | | | Medicine at | [facility], | | | | | Physicians [place] | [place] [address] | | | | | [address] | [phone] | | | | | [address] [facility] | | | | | | Pavilion, [facility] Floor | | | | | | [place], [place] | | | | | | [address] | | | | | | [phone] | | | +--------+--------+ + + + [...] Telephone Encounter - Kumar Talbert MA - 06/18/2019 2:04 PM PST DATE: June 18, 2019 PATIENT: Adriana Flynn [id number] MESSAGE: Current on med list DATE REQUEST REC'D FROM PHARMACY: 06/18/2019 2:04 PM Pending prescriptions this encounter Medication Name Sig Last Dispense Amt Last Refill Amt Date last Refilled fluticasone (FLONASE) 50 mcg/actuation nasal spray,suspension Instill 1 spray into each nos tril two times daily. 16 each 5 05/29/2018 LAST FILLED: QUANTITY: LAST APPOINTMENT: 11/27/18 at 3:33 pm LAST PCP (Alec Hill MD) APPOINTMENT: No past encounter found with Alec Hill MD. NEXT APPOINTMENT: No future appointments scheduled in Pulmonary Disease. NEXT PCP (Alec Hill MD) APPOINTMENT: No future appointments scheduled with Alec Hill MD. Health Maintenance Topic Date Due Override Date/Type Override Comments Pneumococcal vaccination (#2[2 of 2 - PCV13) 05/03/2018 Influenza (Flu) vaccination (#1) 2019 Vitals: BP Readings from Last 3 Encounters: 12/16/18 129/67 11/27/18 141/67 09/30/18 126/71 Pulse Readings from Last 3 Encounters: 12/16/18 68 11/27/18 60 09/30/18 67 Labs: Lab Results Component Value Date TSH 1.78 06/13/2017 CHOL 179 06/17/2012 HDL 41.1 06/17/2012 LDL 120 06/17/2012 TRI 88 06/17/2012 WBC 5.8 06/01/2015 HCT 44.6 06/01/2015 PLT 151 06/01/2015 Lab Results Component Value Date NA 142 08/07/2018 K 3.9 08/07/2018 CL 111 (H) 08/07/2018 BICARB 27 08/07/2018 BUN 17 08/07/2018 CR 0.64 08/07/2018 GLU 86 08/07/2018 CA 8.9 08/07/2018 AST 24 08/07/2018 ALT 23 08/07/2018 AP 81 08/07/2018 TBILI 0.5 08/07/2018 TP 7.2 08/07/2018 ALB 3.6 08/07/2018 documented in this e ncounter Plan of Treatment Not on filedocumented as of this encounter Visit Diagnoses + + | Diagnosis | + + | Chronic sinusitis, unspecified location | + + documented in this encounter"
--- OUTSIDE RECORDS SUMMARY | ~2020-05-04 | XMS | Encounter Summary ---
Demographics + + + | Address | [address] | | | [place] [address] | + + + | Home Phone [...] + | Gene Gee | ECON | [address] | | | | | [place], | | | | | [place] [address] | | + + + + + Care Team Providers + +------+ + | Care Tow Truck Operator Name | Role | Phone | + +------+ + | Antony Ribera MD | PCP | | + +------+ + Encounter Details +--------+ + + + + | Date | Type | Department | Care Team | Description | +--------+ + + + + | 03/20/ | DELETED | Preoperative | Consult, | ANESTHESIA/SEDATION | | 2006 | TRANSCRIPTI | Medicine Clinic at | Anesthesia [address] | | | | ON | [facility] 4th Floor [address] | [facility] | | | | | [facility] | [place], [place] | | | | | Mailcode: [facility] | [id number] | | | | | [facility] | | | | | | and Healing, | | | | | | [facility] [address] | | | | | | [place], [place] | | | | | | [address] | | | | | | [phone] | | | +--------+ + + + [...]
--- OUTSIDE RECORDS SUMMARY | ~2020-05-04 | XMS | Encounter Summary ---
Demographics + + + | Address | [address] | | | [place] [address] | + + + | Home Phone [...] + | Gene Gee | ECON | [address] | | | | | [place], | | | | | [place] [address] | | + + + + + Care Team Providers + +------+ + | Care Press Cleaner Name | Role | Phone | + +------+ + | Antony Ribera MD | PCP | | + +------+ + Reason for Visit +--------+--------+ + | Reason | Onset | Comments | | | Date | | +--------+--------+ + | Cough | 09/23/ | | | | 2012 | | +--------+--------+ + Encounter Details +--------+ + + + + | Date | Type | Department | Care Team | Description | +--------+ + + + + | 09/23/ | Telephone | Plastic and | Alla Binubrandy | Cough | | 2012 | | Reconstructive | MD Manda [address] | | | | | Surgery at [facility] [address] | | | | | [facility] | [address] [place], [place] | | | | | for Health and | [id number] | | | | | Healing, [address], | | | | | | 5th Floor | | | | | | [facility] [place] | | | | | | [address] | | | | | | [phone] | | | +--------+ + + + [...] Telephone Encounter - Eduardo Jorge MA - 09/23/2012 4:06 PM PDTThe patient is producing a small amount of Phlegm but is not running a fever. The patient will call me back next jacqueline alonzo with an up-date. Patient understood the above instructions. The patient was instructed to call back with an y futher questions or concerns. elephone Encounter - Madeline España - 09/23/2012 3:53 PM PDTPatient is scheduled for surgery with Dr. Gold on . She has had a residual cough from a cold she had. She would like to know if this will defer her surgery. documente d in this encounter Plan of Treatment Not on filedocumented as of this encounter Visit Diagnoses Not on filedocumented in this encounter"
--- OUTSIDE RECORDS SUMMARY | ~2020-05-04 | XMS | Encounter Summary ---
Demographics + + + | Address | [address] | | | [place] [address] | + + + | Home Phone [...] + | Gene Gee | ECON | [address] | | | | | [place], | | | | | [place] [address] | | + + + + + Care Team Providers + +------+ + | Care Prosthetic Dentist Name | Role | Phone | + +------+ + | Antony Ribera MD | PCP | | + +------+ + Reason for Visit + +--------+ + | Reason | Onset | Comments | | | Date | | + +--------+ + | Lab Results | 07/04/ | | | | 2006 | | + +--------+ + Encounter Details +--------+ + + + + | Date | Type | Department | Care Team | Description | +--------+ + + + + | 07/04/ | Telephone | Surgical Oncology | [facility]ri, | Lab Results | | 2006 | | at [facility] [address] | MD [address] | | | | | [facility] for | [place], [place] | | | | | Health and Healing, | [address] | | | | | [address] | [phone] | | | | | [place], [place] | | | | | | [address] | | | | | | [phone] | | | +--------+ + + + [...] Notes Telephone Encounter - Claribel Garza - 07/04/2007 10:28 AM PSTPatient notified that punch biopsy of right upper back mole was positive for basal cell carcinoma. It extends to surgica l margins and per Dr. Heart he would like to perform a wider excision in minor surgery. raquel will be scheduled for 07/29/07 for this procedure. Time spent 15 minutes.Electronically sig elenita by Claribel Garza at 07/04/2007 10:28 AM PSTdocumented in this encounter Plan of Treatment Not on filedocumented as of this encounter Visit Diagnoses Not on filedocumented in this encounter"
--- OUTSIDE RECORDS SUMMARY | ~2020-05-04 | XMS | Encounter Summary ---
Demographics + + + | Address | [address] | | | [place] [address] | + + + | Home Phone [...] + | Gene Gee | ECON | [address] | | | | | [place], | | | | | [place] [address] | | + + + + + Care Team Providers + +------+ + | Care Day Camp Unit Leader Name | Role | Phone | + +------+ + | Antony Ribera MD | PCP | | + +------+ + Encounter Details +--------+ + + + + | Date | Type | Department | Care Team | Description | +--------+ + + + + | 08/14/ | Documentati | Vascular Access at | Akbar Rock RN | | | 2008 | on | [facility] [address] [facility] | [address] | | | | | [address] | [place], | | | | | [facility] | [place] [address] | | | | | [place], [place] | | | | | | [address] | | | | | | [phone] | | | +--------+ + + + [...] this encounter Miscellaneous Notes Telephone Encounter - Akbar Rock RN - 08/14/2008 12:49 PM PST22g piv placed left hand wi th lidocaine. Blood drawn at same time. Akbar Rock RN IVT documented in this encounter Plan of Treatment Not on filedocumented as of this encounter Visit Diagnoses Not on filedocumented in this encounter"
--- OUTSIDE RECORDS SUMMARY | ~2020-05-04 | XMS | Encounter Summary ---
Demographics + + + | Address | [address] | | | [place] [address] | + + + | Home Phone [...] + | Gene Gee | ECON | [address] | | | | | [place], | | | | | [place] [address] | | + + + + + Care Team Providers + +------+ + | Care Central Office Mechanic Name | Role | Phone | + +------+ + | Antony Ribera MD | PCP | | + +------+ + Encounter Details +--------+ + + + + | Date | Type | Department | Care Team | Description | +--------+ + + + + | 08/14/ | Telephone | Cardiology General | Monique Middleton, | | | 2008 | | at [facility] [address] | MICHAEL | | | | | [facility] [place] for | | | | | | Health and Healing, | | | | | | Building | | | | | | Floor [place], [place] | | | | | | [address] | | | | | | [phone] | | | +--------+ + + + [...] Telephone Encounter - Monique Middleton Np - 08/14/2008 5:35 PM PSTCalled to discuss the res ults of her lab work--no clear sign of pulm embolus nor CHF. Also discussed results of dobu tamine stress ECHO--no ischemia with EKG or ECHO--did have moderate pulm HTN at rest and thi s became severe with dobutamine(exercise). Will start on low dose furosemide--20mg daily. W ill refer to Dr. Juarez in pulmonary for evaluation/treatment documented in this encounter Plan of Treatment Not on filedocumented as of this encounter Visit Diagnoses Not on filedocumented in this encounter"
--- OUTSIDE RECORDS SUMMARY | ~2020-05-04 | XMS | Encounter Summary ---
Demographics + + + | Address | [address] | | | [place] [address] | + + + | Home Phone [...] + | Gene Gee | ECON | [address] | | | | | [place], | | | | | [place] [address] | | + + + + + Care Team Providers + +------+ + | Care Cutting Machine Fixer Name | Role | Phone | + +------+ + | Alec Hill MD | PCP | | + +------+ + Encounter Details +--------+ + + + + | Date | Type | Department | Care Team | Description | +--------+ + + + + | 05/23/ | Ancillary | Registration [id number] | Stevan Velazquez, | | | 2006 | Registratio | [facility] | [address] | | | | n | Driss Mailcode: [id number] | [place], [place] | | | | | [place], [place] | [address] | | | | | [address] | [phone] | | | | | [phone] | | | +--------+ + + + [...]
--- OUTSIDE RECORDS SUMMARY | ~2020-05-04 | XMS | Encounter Summary ---
Demographics + + + | Address | [address] | | | [place] [address] | + + + | Home Phone [...] + | Gene Gee | ECON | [address] | | | | | [place], | | | | | [place] [address] | | + + + + + Care Team Providers + +------+ + | Care Advertising Vice President Name | Role | Phone | + +------+ + | Antony Ribera MD | PCP | | + +------+ + Reason for Visit + +--------+ + | Reason | Onset | Comments | | | Date | | + +--------+ + | Medication Question | 09/26/ | Asthma | | | 2012 | | + +--------+ + Encounter Details +--------+ + + + + | Date | Type | Department | Care Team | Description | +--------+ + + + + | 09/26/ | Telephone | Pulmonary & | Pete Gee, | Medication Question | | 2012 | | Critical Care | MD | (Asthma) | | | | Medicine at | | | | | | [facility] | | | | | | [address] | | | | | | [facility] | | | | | | [place], [address] [place] [address] | | | | | | [place], [place] | | | | | | [address] | | | | | | [phone] | | | +--------+ + + + [...] this encounter Miscellaneous Notes Telephone Encounter - Pete Gee MD - 10/01/2012 4:35 PM PDTCalled the patient. Cedillo ving a little bit more cough, mostly dry, feels like asthma. Some GERD but already on Aciphe x. Not much rhinitis or allergies. Does not want to take prednisone. Using albuterol more th an before but only about once weekly. Will try a higher dose of budesonide, three puff twice daily instead of two puffs twice daily for at least a month. Hasn't tolerated LABA due to t achycardia. Otherwise still on Spiriva. Patient will follow up in clinic after her breast re construction surgery. Pete Gee MD Pulmonary and Critical Care Fellow Pager # [phone] elephone Encounter - Rebecca Contreras - 09/26/2012 2:37 PM PDTCarol called indicating that she is having tro uble taking a deep breath and would like to see if there is some other inhaler or medication she could try. documen dean in this encounter Plan of Treatment Not on filedocumented as of this encounter Visit Diagnoses Not on filedocumented in this encounter"
--- OUTSIDE RECORDS SUMMARY | ~2020-05-04 | XMS | Encounter Summary ---
Demographics + + + | Address | [address] | | | [place] [address] | + + + | Home Phone [...] + | Gene Sahil | ECON | [address] | | | | | [place], | | | | | [place] [address] | | + + + + + Care Team Providers + +------+ + | Care Heavy Line Technician Name | Role | Phone | [...] as of this encounter Progress Notes Interface, Seasonal Recruiter In - 02/12/2005 12:13 AM PDT [id number] [facility] Date: 10/11/2004 Clinic: Liver Pancreas Transplantation The patient was seen and examined with our chief resident Dr. Livier Levine, and I concur with the details outlined in her note. 1. Briefly, the patient has multiple large and symptomatic liver cyst in the past and is status post exploratory laparotomy and excision and resection of multiple of liver cysts with alcohol ablation and marsupialization on June 29, 2004. 1.1. The final pathology on the total of 10 cysts, all were consistent with peribiliary benign cysts. 1.2. The patient had ruptured and blood into one of the largest cysts which was 9.3 x 12.2 cm in size, and this had been rapidly growing. 1.3. The patient had an initial uneventful postoperative course. However, was readmitted with partial bowel obstruction on July 17, 2004. 2. History of partial small bowel obstruction. Discharged on July 07, 2004, and then on Sarah developed abdominal pain and went to the emergency room at the local [facility] in [place]. CT showed multiple air filled fluid levels and no free air. An NG-tube was placed, and the patient was transferred to [facility] on July 17, 2004. The patient underwent bowel decompression with nasogastric suction and p.o. gastrografin and small-bowel follow-through, and the partial small bowel obstruction resolved, and the patient was discharged on July 23, 2004. The other important past medical history is significant for supraventricular tachycardia. The patient developed ectopic atrial tachycardia postoperatively in June 2004. At that time, she was placed on an antiarrhythmic and was discharged on amiodarone as well as digoxin. She was followed by Dr. Fuentes at [facility] Cardiology, and her digoxin was discontinued as well as her amiodarone. She was placed back on her atenolol which she had previously been on. She has undergone dobutamine stress echo yesterday and plans to visit Dr. Fuentes today to discuss possible electrophysiologic study and ablation. 3. Sjogren's disease. 4. Mitral valve prolapse. 5. Asthma. 6. Gastroesophageal reflux disease on therapy. 7. Fibromyalgia. 8. Carpal tunnel syndrome. 9. Fibrocystic breast disease. 10. Esophageal dysmotility syndrome. 11. TMJ disease. 12. The patient is status post ectopic that ruptured at age 20, appendectomy age 25. Lysis of adhesions in 2002. Bladder suspension at age 51. Laparoscopic cholecystectomy in 2003, and open hernia repair with mesh in 2003. She has also had a left hemicolectomy for diverticulitis. History of hysterectomy at age 46 and endometriosis. Medications: As per Dr. Levine. Subjective: The patient is doing well very well, although she has developed a recent rash after staying at one of her daughter's homes and has been very pruritic throughout her whole body. She has had no new medications and no new exposures other than being at her daughter's home and clipping trees and bushes. Benadryl seems to help the itching. Otherwise, she also has some thrombosed veins from IVs that have been placed at the time of her small bowel obstruction. These do not appear effective and therefore for now we will leave them alone. In addition, we discussed that she does not at this point know the results of her dobutamine stress echo, and plans for EPS, but will visit Dr. Fuentes later today. Physical Examination: General: She looks very fit and healthy, in no acute distress. Vital Signs: Her weight is 134.7 pounds up 3 pounds than the last visit. Her blood pressure is 120/70, temperature is 98, pulse is 62, and height is 5 feet and 6 inches. Skin: Without jaundice. HEENT: Sclerae anicteric. Oral cavity/oropharynx is clear. Lungs: Clear bilaterally. Cardiovascular: Regular rate. No murmurs or gallops. Abdomen: Soft. She has a well-healed midline scar below her umbilicus and then a bilateral subcostal incision with a midline extension. This is well healed. No evidence of masses. No organomegaly. No hernias. No ascites. No tenderness. Extremities: Reveal no edema. Skin: She does have areas of urticarial rash on her abdomen and legs and some scratch villanueva surrounding these areas. Laboratory Data: Her laboratory data is pending from today. Assessment and Plan: 1. To treat with Benadryl for her pruritic urticarial rash and if this persists, she should see a assignment manager and possibly be treated with steroids. 2. Follow her thrombosed pains related to IV placement and if these become infected, then it would need surgical excision, otherwise we will leave them alone and use hot packs and elevation. 3. Plan to see Dr. Fuentes this afternoon in Cardiology and discuss the results of her dobutamine stress echo as well as plans for possible EPS therapy. In addition, the patient will follow up in this clinic in mid June 2005 for evaluation of further growth of any residual cysts via CT scan of the abdomen dual phase. She will have the CT scan first and then return to clinic for a followup and discussion of the results of her CT. In addition, the patient may follow up in clinic earlier as needed. Katie Callahan M.D. Donation Worker Division of Liver and Pancreas Transplantation [facility] / [id number] / [id number] / [id number] / [id number] C: 10/18/2004 cmw cc: Dilip Frias M.D.,M.S.P.H. [address] [place] [address] Saman Ribera M.D. [place] [facility] [address] [place] [id number] Bob Reyna M.D. [id number] [facility] Hepatology Gary Fuentes M.D. [facility] Cardiology Electronically signed by Katie Callahan 10-24-2004 02:31:35 PM documented i n this encounter Plan of Treatment Not on filedocumented as of this encounter Visit Diagnoses Not on filedocumented in this encounter"
--- OUTSIDE RECORDS SUMMARY | ~2020-05-04 | XMS | Encounter Summary ---
Demographics + + + | Address | [address] | | | [place] [address] | + + + | Home Phone [...] + | Gene Gee | ECON | [address] | | | | | [place], | | | | | [place] [address] | | + + + + + Care Team Providers + +------+ + | Care Line Service Supervisor Name | Role | Phone | + +------+ + PCP | Unavailable | + +------+ + Encounter Details +--------+ + + + + | Date | Type | Department | Care Team | Description | +--------+ + + + + | 08/11/ | Abstract | | | | | 2004 | | | [...]
--- OUTSIDE RECORDS SUMMARY | ~2020-05-04 | XMS | Encounter Summary ---
Demographics + + + | Address | [address] | | | [place] [address] | + + + | Home Phone [...] + | Gene Gee | ECON | [address] | | | | | [place], | | | | | [place] [address] | | + + + + + Care Team Providers + +------+ + | Care Jewel Oliving Machine Operator Name | Role | Phone | + +------+ + | Antony Ribera MD | PCP | | + +------+ + Encounter Details +--------+ + + + + | Date | Type | Department | Care Team | Description | +--------+ + + + + | 07/18/ | Telephone | Cardiology General | Monique Middleton, | | | 2007 | | at [facility] [address] | MICHAEL | | | | | [facility] | | | | | | [facility] and Healing, | | | | | | Building | | | | | | Floor [place], [place] | | | | | | [address] | | | | | | [phone] | | | +--------+ + + + [...] Telephone Encounter - Monique Middleton Np - 07/18/2007 6:11 PM PSTCalled about her palpitat ions. Is taking extra atenolol--1/2 in am and 1/2 in pm and worries if this is a problem. We discussed taking extra atenolol while she has her chemo treatments. She will try this an d see if this helps. Also discussed taking more moricizine--will check on availability naye abbott. documented in this encounter Plan of Treatment Not on filedocumented as of this encounter Visit Diagnoses Not on filedocumented in this encounter"
--- OUTSIDE RECORDS SUMMARY | ~2020-05-04 | XMS | Encounter Summary ---
Demographics + + + | Address | [address] | | | [place] [address] | + + + | Home Phone [...] + | Gene Gee | ECON | [address] | | | | | [place], | | | | | [place] [address] | | + + + + + Care Team Providers + +------+ + | Care Hardware Sales Assistant Name | Role | Phone | + +------+ + | Antony Ribera MD | PCP | | + +------+ + Encounter Details +--------+------+ + + + | Date | Type | Department | Care Team | Description | +--------+------+ + + + | 04/09/ | Lab | Laboratory at [facility] | | Osteopenia; | | 2011 | | [address] | | Thyroid nodule | | | | [facility] | | | | | | [place], [address] [place] [address] | | | | | | [place], [place] | | | | | | [address] | | | | | | [phone] | | | +--------+------+ + + + [...] + | VITAMIN D, | Routin | 04/09/2012 | Osteopenia | Results for this | | 25-HYDROXY, SERUM | e | 12:57 PM | | procedure are in the | | | | PDT | | results section. | + +--------+ + + + | TSH | Routin | 04/09/2012 | Thyroid nodule | Results for this | | | e | 12:57 PM | | procedure are in the | | | | PDT | | results section. | + +--------+ + + + documented in this encounter Results TSH (04/09/2012 12:57 PM [...] | + + + | [facility]) | [facility] | | [facility] [place] [address] | REGIONAL | | [place] [address] | LABORATORY | + + + + + + + + | Performing | Address | City/State/Zipcode | Phone Number | | Organization | | | | + + + + + | [facility] | [address] | [place] [address] | | | LABORATORY | | | [...] | + + + + + | [facility] DEPARTMENT OF | [address] | [place] [address] | | | PATHOLOGY | [address] | | | + + + + + documented in this encounter Visit Diagnoses + + | Diagnosis | + + | Osteopenia Disorder of bone and cartilage, unspecified | + + | Thyroid nodule Nontoxic uninodular goiter | + + documented in this encounter"
--- OUTSIDE RECORDS SUMMARY | ~2020-05-04 | XMS | Encounter Summary ---
Demographics + + + | Address | [address] | | | [place] [address] | + + + | Home Phone [...] + | Gene Gee | ECON | [address] | | | | | [place], | | | | | [place] [address] | | + + + + + Care Team Providers + +------+ + | Care Equine Vet Name | Role | Phone | + [...] | | | | | | | [facility] [place] | | | | | | | [address] | | | | | | | Phone: | | | | | | | [phone] | | | | | | | Fax: | | | | | | | [phone] | +--------+ + + + + + Encounter Details +--------+---------+ + + + | Date | Type | Department | Care Team | Description | +--------+---------+ + + + | 05/27/ | Office | Surgical Oncology | [facility], | Breast Cancer | | 2008 | Visit | - Breast Clinic | [address] | (Primary Dx) | | | | [address] | [facility] [place] | | | | | Mailcode: [place] | [address] | | | | | [facility] | [phone] | | | | | and Healing, | | | | | | Building [address]th | | | | | | Floor [facility] [place] | | | | | | [address] | | | | | | [phone] | | | +--------+---------+ + + + [...] | Blood Pressure | 120/69 | 05/27/2009 2:08 PM | | | | | PST | | + + + + + | Pulse | 73 | 05/27/2009 2:08 PM | | | | | PST | | + + + + + | Temperature | 36.9 C (98.5 F) | 05/27/2009 2:08 PM | | | | | PST | | + + + + + | Respiratory Rate | 14 | 05/27/2009 2:08 PM | | | | | PST | | + + + + + | Oxygen Saturation | - | - | | + + + + + | Inhaled Oxygen | - | - | | | Concentration | | | | + + + + + | Weight | 66 kg (145 lb 8.1 | 05/27/2009 2:08 PM | | | | oz) | PST | | + + + + + | Height | - | - | | + + + + + | Body Mass Index | 23.84 | 12/29/2008 10:13 AM | | | | | PDT | | + + + + + documented in this encounter Progress Notes Luís Heart MD - 05/28/2009 8:31 AM PSTI performed a history and physical examination of the patient and discussed her management with the resident. I reviewed the resident s note and agree with the documented findings and plan of care. Gen: WD/WN in NAD. Not jaundiced. HEENT: PERRLA. EOMI. Sclerae non-icteric. Neck: No cervical or supraclavicular lymphadenopathy. Lungs: Clear to auscultation and percussion bilaterally with 2cm diaphragmatic excursions b ilaterally. Breast exam: The Left breast has an everted nipple.There is no obvious skin change, dimplin g, or mass. Palpation of the breast did not reveal any dominant masses. There was no nipple discharge. There was no axillary lymphadenopathy. Palpation of the mastectomy scars and fla ps did not reveal any suspicious areas, changes or masses. There was no axillary lymphadenop athy. Abd: Non-distended. No obvious mass. Normal BS. No bruits. Soft, non-tender. The liver is n ot palpable. The spleen is not palpable. The liver span is 6 cm to percussion in the right mid-clavicular line. There is no palpable abdominal mass. There is no Sr. Katty Hamlin's nod ule. There is no inguinal lymphadenopathy. Extr: Without clubbing, cyanosis, or edema, including no lymphedema of the RUE. Neuro: CN II-XII grossly intact. Motor and sensory exam grossly normal throughout. Mammograms were reviewed today and they are negative. Assessment: History of carcinoma of the right. The patient currently has no evidence of dis ease. Plan: Continue adjuvant aromatase inhibitor therapy. RTC in 1 year with left mammogram. [facility] MD salvage cutter Division of Surgical Oncology MailCode [id number] [place], [place] [address] Allison Casas Md - 05/27/2009 2:33 PM PSTSUBJECTIVE: Adriana Flynn is a 63 y.o. Female w/ Sjogren's syndrome who is s/p R total mastectomy and c omplete axillary dissection for invasive ductal carcinoma. Her tumor was estrogen receptor p ositive and HER-2/Maddi negative. She is s/p adjuvant chemotherapy and is still taking arimide x. She returns to clinic today for followup following her yearly mammogram. She denies any new lumps on SBE. She denies pain, fevers, chills, night sweats, unintentio nal wt loss. She would like a referral to [facility] orthopedics for right rotator cuff repair. OBJECTIVE: BP 120/69 | Pulse 73 | Temp(Src) 36.9 C (98.5 F) (Oral) | Resp 14 | Wt 66 kg (145 lb 8. 1 oz) Gen: well appearing woman in NAD Heart: RRR, no murmurs appreciated Lungs: CTAB Breast: R breast wo masses, tenderness, no axillary LN palpated. L breast wo masses or enl arged axillary LN. Lymph: no neck, clavicular, axillary, or inguinal enlarged nodes palpated. Abd: no hepatomegaly MA DIAGNOSTIC MAMMO LEFT W/CAD (no units) Date Value Low High Status 05/27/09 Final Value: Patient History: Patient is postmenopausal and has history of breast cancer at age 62. Mastectomy of the right breast, March 2007. Last mammogram was performed 1 year ago. Reason for exam: history of breast cancer, mastectomy. MA DIAGNOSTIC MAMMO LEFT W/CAD: May 27, 2009 - CC, MLO, and XCCL view(s) were taken of the left breast. Prior study comparison: May 21, 2008, [facility] DIG MAMMO DIAG LEFT. December 05, 2007, [facility] DIG MAMMO DIAG LEFT. The breast tissue [...] full field digital mammography on the dedicated GoTo[employer] System with R2 CAD. Performed at [facility]. ASSESSMENT: Benign - Category 2 RECOMMENDATION: Routine screening mammogram of the left breast in 1 year. I have personally viewed this procedure/exam and reviewed this report. Author: NARENDRA HOLLOWAY M.D. Reviewer: NARENDRA HOLLOWAY M.D. STATUS FINAL / Dr. NARENDRA HOLLOWAY ASSESSMENT: Adriana Flynn is a 63 y.o. Female here for fu s/p R total mastectomy and complete axillary dissection for invasive ductal carcinoma in 2006. PLAN: 1. Continue arimidex. 2. Follow up in one year with mammogram and appt This pt was seen and examined by Dr. Heart, who agrees with the plan of care. Allison Rae MD [facility] Leather Lacer PGY-3 documented in thi s encounter Miscellaneous Notes Scan - Other, Faculty - 06/22/2009 12:00 AM [...] | MA DIAGNOSTIC MAMMO | Routin | 06/30/2010 | | Results for this | | LEFT W/CAD | e | 1:01 PM | | procedure are in the [...] encounter Results MA DIAGNOSTIC MAMMO LEFT W/CAD (06/30/2010 1:01 PM PST) + + + + + [...] | | | | | | month ago. MA DIGITAL | | | | | | MAMMO DIAG LEFT W/CAD: | | | | | | June 30, 2010 - | | | | | | | | | | | | and MLO view(s) were | | | | | | taken of the left | | | | | | breast.Prior study | | | | | | comparison: May 27, | | | | | | 2008, [facility] DI[facility]NOSTIC | | | | | | MAMMOLEFT w/CAD. | | | | | | May 21, 2008, [facility] | | | | | | DIG MAMMO DIAG LEFT.The | | | | | | patient is status post | | | | | | right mastectomy. No | | | | | | suspiciouscalcifications | | | | | | , masses, or | | | | | | architectural distortion | | | | | | present inthe left | | | | | | breast. The images were | | | | | | obtained using full | | | | | | field digital | | | | | | mammography onthe | | | | | | dedicated [employer]To[employer] System | | | | | | with R2 CAD. Performed | | | | | | at [facility] and | | | | | | [facility]. | | | | | | ASSESSMENT: Negative - | | | | | | Category 1 | | | | | | RECOMMENDATION:Follow-up | | | | | | diagnostic mammogram of | | | | | | the left breast in 1 | | | | | | year. I have personally | | | | | | viewed this | | | | | | procedure/exam and | | | | | | reviewed this report. | | | | | | Author: RUPINDER IVERSON, | | | | | | Katianaiewer: CRYSTAL BRABA, | | | | | | STATUS FINAL / . | | | | | | CRYSTAL BARBA | | | | + + + + + + + + | Specimen | + + | | + + + +---------+ + + | Performing | Address | City/State/Zipcode | Phone Number | | Organization | | | | + +---------+ + + | [facility] DEPARTMENT OF | | | | | RADIOLOGY | | | | + +---------+ + + LAB REPORTS (06/22/2009 12:00 AM PST) + + + | Narrative | Performed At | + + + | | | + + + + + | Procedure Note | + + | Gisele Strong - 06/22/2009 12:00 AM PST | | | + + documented in this encounter Visit Diagnoses + + | Diagnosis | + + | Breast Cancer - Primary Malignant neoplasm of breast (female), unspecified site | + + documented in this encounter"
--- OUTSIDE RECORDS SUMMARY | ~2020-05-04 | XMS | Encounter Summary ---
Demographics + + + | Address | [address] | | | [place] [address] | + + + | Home Phone [...] + | Gene Sahil | ECON | [address] | | | | | [place], | | | | | [place] [address] | | + + + + + Care Team Providers + +------+ + | Care Mud Mixer Operator Name | Role | Phone | + +------+ + PCP | Unavailable | + +------+ + Encounter Details +--------+ + + + + | Date | Type | Department | Care Team | Description | +--------+ + + + + | 06/08/ | Office | [facility] | Clinic, Hepatology | Progress Note | | 2004 | [...] as of this encounter Progress Notes Interface, Lead Front End Developer In - 02/12/2005 8:49 AM PDT [id number] [facility] Date: 06/08/2004 Clinic: Hepatology This consult was requested by Dr. Dilip Frias for further evaluation of the patient's large hepatic cyst that is symptomatic. The patient was seen and examined and management plan discussed in its entirety with Dr. Dilip Cortes, GI fellow. Please see his detailed note dated June 08, 2004, for additional information. I agree with assessment and management plan. The patient's medical records that were sent were reviewed, discussed with patient, and summarized as follows. Subjective: Ms. Flynn is a 58-year-old female, who in 1998 ultrasound revealed a liver cyst, question of, and more recently about a month ago developed acute onset of right upper quadrant pain. Followup imaging study shows that the largest cyst which is nearly 10 cm now has enlarged and has complication of hemorrhage within the cyst. She has other smaller cysts throughout and one medium size one on the left hepatic lobe. The largest one is under the right lobe under the dome of the liver. She was admitted to a hospital in [place] for workup of causes of this sudden right upper quadrant pain. She was ruled out for an GA. Her right upper quadrant symptoms have slowly improved but continues to have right upper quadrant pain, some occasional chills, continues to hurt when she moves and eat, but the pain is not acute at this time. Review of Systems: Otherwise negative. Past Medical History 1. Sjogren, diagnosed in 1998. 2. Fibromyalgia diagnosed in 1998. 3. Mitral valve prolapse. 4. Reflux disease. 5. Asthma. 6. TMJ. 7. Fibrocystic breast disease 25 years ago. 8. Diverticulitis, status post colonic resection. 9. Skin cancer in back. 10. Appendectomy. 11. Ectopic . 12. Endometriosis, status post hysterectomy. 13. Cholecystectomy. 14. Surgical hernia repair. 15. Lysis of adhesions. Medications: Estrace, Protonix, atenolol 50 mg a day, Combivent, Serevent, Pulmicort, and Flonase for asthma. Allergies: CIPRO, SULFA, AND DYAZIDE. Social History: She is here with her . They have kids. No alcohol, IV drug use, no tattoos, no blood transfusion. Family Medical History: Negative for liver disease. Physical Examination General: A pleasant female in no apparent distress. Vital Signs: Weight 137 pounds, height 5 feet 6 inches, blood pressure 136/90, pulse 64, respirations 16, and temperature 97.6. Skin: On examination, skin without rashes or lesions. HEENT: Sclerae anicteric. Neck: Supple. Lungs: Clear to auscultation. Cardiovascular: Regular rate and rhythm. Abdomen: Normoactive bowel sounds. Soft and nondistended. She has distinct right upper quadrant tenderness, but no obvious masses appreciated. Some fullness noted, likely from her hepatic cyst. Extremities: No cyanosis, clubbing, or edema. Neurologic: Without asterixes. Laboratory Data: Initially has had normal liver function tests, however, on May 01, 2004, after her episode of right upper quadrant pain, AST increased to 66, ALT to 67, alkaline phosphatase was normal at 96, total bilirubin was 0.9. On May 02, 2004, her liver enzymes were decreasing, AST had dropped to 42 and ALT to 52. Imaging studies as outlined above. A CD ROM of her CT scan was reviewed as well and as stated above. Assessment: Ms. Flynn is here for further evaluation of multiple hepatic cysts. The main issue has been her large hepatic cyst at nearly 9 x 12 cm in size and has had a complication of hemorrhage within the cyst. She is symptomatic with mild elevation of her liver enzymes and it appears reasonable that she could be a candidate for surgical resection for management of this, at least of one dominant large cyst. We also discussed the issue of potential aspiration of this large cyst; however, these large cysts tend to just recur again after aspiration of the cyst and most of them benefit from definitive surgical therapy, therefore, I will refer the patient to see Dr. Katie Callahan, one of the hepatic surgeons, for further evaluation and management. If she has progressive worsening of right upper quadrant pain or develops fevers or ( ) acutely ill, she needs to be urgently admitted at that time and more urgent evaluation of this cyst will need to be done. Bob Reyna M.D. ice skater [place] / HS [id number] / [id number] / [id number] / [id number] documented i n this encounter Plan of Treatment Not on filedocumented as of this encounter Visit Diagnoses Not on filedocumented in this encounter"
--- OUTSIDE RECORDS SUMMARY | ~2020-05-04 | XMS | Encounter Summary ---
Demographics + + + | Address | [address] | | | [place] [address] | + + + | Home Phone [...] + | Gene Gee | ECON | [address] | | | | | [place], | | | | | [place] [address] | | + + + + + [...] + + + + | 05/27/ | Abstract | Cardiology | Monique Middleton, | | | 2012 | | Arrhythmia at [facility] | BLOCK SPLITTER OPERATOR | | | | | [address] | | | | | | [place] for [facility] | | | | | | and Healing, | | | | | | Building | | | | | | Floor [place], [place] | | | | | | [address] | | | | | | [phone] | | | +--------+ + + + [...]
--- OUTSIDE RECORDS SUMMARY | ~2020-05-04 | XMS | Encounter Summary ---
Demographics + + + | Address | [address] | | | [place] [address] | + + + | Home Phone [...] + | Gene Gee | ECON | [address] | | | | | [place], | | | | | [place] [address] | | + + + + + Care Team Providers + +------+ + | Care Belt Turner Name | Role | Phone | + [...] | | | | pulmonary | MD Mik | [address] | | | | | embolism and | [address] | | | | | infarction | [address] | Mailcode: | | | | | Procedures | [place], [place] | [address] | | | | | VASC LAB | [address] | Physician's | | | | | CHRONIC | Phone: | [facility] | | | | | VENOUS STUDY | [phone] | [place], [place] | | | | | W/DUPLEX | Fax: | [address] | | | | | [address] | [phone] | Phone: | | | | | | | [phone] | | | | | | | Fax: | | | | | | | [phone] | +--------+--------+ + + + + Encounter Details +--------+---------+ + + + | Date | Type | Department | Care Team | Description | +--------+---------+ + + + | 04/06/ | Office | Hematology/Medical | Katheryn, | Other Pulmonary | | 2008 | Visit | Oncology at [facility] | MD Mik [address] | Embolism and | | | | [address] | [address] [place], | Infarction (Primary | | | | Mailcode: [id number] | [place] [address] | Dx) | | | | [place] for [facility] | [phone] | | | | | and Healing, | | | | | | Building [address], [address]th | | | | | | Floor [place], [place] | | | | | | [address] | | | | | | [phone] | | | +--------+---------+ + + + [...] documented as of this encounter Progress Notes Mik Rosas MD - 04/06/2009 4:35 PM PDT Hematology Clinic Problem List Pulmonary embolism Impression 1. Pulmonary embolism - from history unclear when event was or how diagnostic the CT is. G vivi she has had > 3 months of therapy, the risk of warfarin, and this unusual presentation would stop warfarin. Arimidex is not as risky for thrombosis as tamoxifen so this is not a major risk factor. 2. D-dimer - Will repeat today - past levels have been modestly elevated on her warfarin. Unclear of the meaning of this since d-dimer can normally be up in aging, varicose veins, o r in chronic illness. Will repeat today but unless markedly elevated (> 2) will not change plans 3. Varicose Veins - will obtain chronic venous disease study today. Will also have vascula r surgery review scans to see if these can be amendable to therapy. 4. For future prophylaxis: - Surgeries: patient should have aggressive prophylaxis with intermittent compression sto ckings followed within 24 hours of surgery with prophylactic LMWH (unless bleeding risk is s till present) and stop when the patient is fully ambulatory or for major orthopedic procedur es 4-6 weeks. - Estrogen: Ideally she should received no estrogen containing products - either pills, patches or rings. There is some controversial data that hormonal replacement therapy patche s may not be as thrombogenic but this needs to be better studied. - Airplane flights: flights > 4-6 hours are associated with an increase risk of DVT and th ose > 10 are particular higher risk. For all long flights would recommend knee-high comp ression stockings 15-30 mmHg of compression at the ankle. For very long flights can add pro phylactic dose LMWH before each leg of the trip. - Bedrest: Consider LMWH if patient hospitalized or at bed rest for > 72 hours - Leg immobilized: Consider LMWH if patient leg is in a cast or immobilized. Will follow-up with patient and referring providers when results are back. Subjective LAURNE BAXTER is a 63 year old female kindly referred by Stevan Velazquez MD for pulmonary em bolism. Patient with complex past medical history including a history of Sjogren disease. S he has also had multiple small bowel surgeries and a ruptured liver cytes. Starting last fa ll she noted increasing shortness of breath. Echocardiogram showed pulmonary hypertension. 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 Her d-dimer w as elevated so she was started on warfarin. She does note chronic varicose veins which are very painful. No previous history of thrombosis nor family history. Of note, her d-dimer re curry persistently elevated. Patient reports a pain level of 5 today. Please see scanned questionnaire for SH, FH, PMH, and ROS which I have reviewed in detail, signed, and dated. Current outpatient prescriptions: anastrozole (ARIMIDEX) 1 mg Oral Tablet, Take 1 Tab by mo [facility] once daily. , Disp: 90, Rfl: 2 atenolol 25 mg Oral Tablet, Take 25 mg by mouth once daily. , Disp: , Rfl: budesonide (PULMICORT FLEXHALER) 180 mcg/Inhalation Inhalation Aerosol [facility] Breath Activat ed, Inhale 1 Puff two times daily. 2 puffs in the am and 1 puff in the pm, Disp: 90 day supp ly , Rfl: 4 calcium citrate-vitamin D (CITRACAL + D) 315-200 mg-unit Oral Tablet, 2 tabs twice a day, D isp: , Rfl: COUMADIN OR, Take 7 mg by mouth once daily. , Disp: , Rfl: CRESTOR 5 mg Oral Tablet, Take 5 mg by mouth once daily. , Disp: , Rfl: Docusate Sodium (STOOL SOFTENER) 100 mg Oral Capsule, 1 pill by mouth 2 X per day, Disp: , Rfl: DOFETILIDE 500 mcg Oral Capsule, Take 1 Cap by mouth two times daily., Disp: 60, Rfl: 6 fluticasone (FLONASE) 50 mcg/Actuation Nasal Felch, Suspension, Instill 2 Sprays into each nostril once daily., Disp: 90 day supply', Rfl: 4 Glucosamine 1,000 mg Oral Tablet, one daily, Disp: , Rfl: MULTIVITAMIN OR, one daily, Disp: , Rfl: potassium chloride SR 20 mEq Oral Tab Sust.Rel. Particle/Crystal, Take 1 Tab by mouth once daily. , Disp: 90, Rfl: 4 PROTONIX 40 mg Oral Tablet, Delayed Release (E.C.), take 1 tablet (40mg) by oral route once daily, can take additional tablet in the night if needed, Disp: 180, Rfl: 3 RESTASIS OPHT, Both eyes twice daily , Disp: , Rfl: tiotropium (SPIRIVA WITH HANDIHALER) 18 mcg Inhalation Capsule, w/Inhalation Device, Inhale 1 Cap once daily., Disp: 90 day supply, Rfl: 4 Vitamin A-Vitamin C-Vit E-Min (ANTIOXIDANT FORMULA) Oral Capsule, take 1 capsule by oral ro hillary once daily with food, Disp: , Rfl: VITAMIN D ORAL, 2000 IU daily, Disp: , Rfl: Allergies Allergen Reactions Sulfa (Sulfonamides) Swelling-Facial Ciprofloxacin Hives and Rash Triamterene-hydrochlorothiazid BREAST LUMPS Celebrex (Celecoxib) Diarrhea and Cough Albuterol Tachycardia Flecainide Acetate Rash Intestinal discomfort Propafenone unknown Tape Adherent Rash There were no vitals taken for this visit. Gen: Appears non-toxic SHEENT: NC/AT No Scleral icterus TM clears Oral cavity clear Neck: No JVD No nodes Lungs: Good Resp movement. Clear to A&P Cor: RRR without R,G,M ABD; Soft w/o HSM, masses or tenderness EXT: No C/C/E Neuro: Intact Psy: Appropriate Mik Rosas MD, FACP supervisor travel trailer, Pathology, and Pediatrics documented in this encounter Miscellaneous Notes Scan - Other, Faculty - 08/26/2009 9:59 AM PST can - Ligia, F aculty - 04/21/2009 8:28 AM PDT can - Other, F aculty - 04/20/2009 10:22 AM PDT documented in t his encounter Plan of Treatment Not on filedocumented as of this encounter Procedures + +--------+ + + + | Procedure Name | Priori | Date/Time | Associated Diagnosis | Comments | | | ty | | | | + +--------+ + + + | VASC LAB VENOUS | Routin | 04/06/2009 | | Results for this | | REFLUX STUDY | e | 3:27 PM | | procedure are in the | | BILATERAL | | PDT | | results section. | + +--------+ + + + | VASC LAB VENOUS | Routin | 04/06/2009 | | Results for this | | DUPLEX LOWER | e | 3:27 PM | | procedure are in the | | EXTREMITY BILAT COMP | | PDT | | results section. | + +--------+ + + + documented in this encounter Results VAS LAB CHRONIC VENOUS STUDY BILAT (04/06/2009 3:27 PM PDT) + + + + + + | Component | Value | Ref Range | Performed | Pathologist | | | | | At | Signature | + + + + + + | VASC LAB | Med Rec No: [id number] | | | | | CHRONIC | Name: | | | | | VENOUS | LAUREN BAXTER Manda | | | | | STUDY | Birthday: 1945 | | | | | BILATERAL | Sex: F | | | | | | Alias:Patient Location: | | | | | | [id number]: Outpatient | | | | | | ActiveOrdering | | | | | | Physician: MIK Bell | | | | | | Declan ROSASVCVENB | | | | | | VL CHRONIC VENOUS STUDY | | | | | | DOE completed on | | | | | | 04/06/2009 3:27 | | | | | | PMAccession # | | | | | | [id number]:CHRONIC | | | | | | VENOUS EVALUATION: | | | | | | 04/06/2009 Dictated | | | | | | 04/06/2009INDICATION: | | | | | | Varicosities.FINDINGS: | | | | | | The common femoral, | | | | | | popliteal vein, | | | | | | posterior tibial,greater | | | | | | and lesser saphenous | | | | | | veins was examined with | | | | | | the patient inthe | | | | | | standing position. | | | | | | Valve closure times | | | | | | were assessed as | | | | | | wasvalvular | | | | | | incompetence. In the | | | | | | right leg, there is no | | | | | | evidence ofvalvular | | | | | | incompetence of the | | | | | | right common femoral, | | | | | | popliteal, andposterior | | | | | | tibial veins. There is | | | | | | valvular insufficiency | | | | | | of the rightgreater | | | | | | saphenous vein above the | | | | | | knee. There is no | | | | | | evidence ofinsufficiency | | | | | | of the right lesser | | | | | | saphenous vein. In the | | | | | | left leg,there is no | | | | | | evidence of valvular | | | | | | insufficiency of the | | | | | | left commonfemoral, | | | | | | popliteal, posterior | | | | | | tibial, and lesser | | | | | | saphenous vein.There is | | | | | | valvular insufficiency | | | | | | of the left greater | | | | | | saphenous veinand the | | | | | | lateral branch of the | | | | | | greater saphenous vein. | | | | | | Likewise,there is | | | | | | insufficiency of a | | | | | | greater saphenous vein | | | | | | branch below andabove | | | | | | the | | | | | | knee.IMPRESSION:Abnormal | | | | | | chronic venous | | | | | | evaluation. There is | | | | | | bilateral | | | | | | greatersaphenous vein | | | | | | venous insufficiency.END | | | | | | IMPRESSION:I have | | | | | | personally viewed this | | | | | | procedure/exam and | | | | | | reviewed this | | | | | | report.STATUS FINAL / | | | | | | Dr. MAGGIE Schuler | | | | | | ROSALBASTATUS | | | | | | PRELIMINARY - UNSIGNED / | | | | | | Fang Smith | | | | + + + [...] LAB VENOUS DUPLEX LOWER EXTREMITY BILAT COMP (04/06/2009 3:27 PM PDT) + + + + + + | Component | Value | Ref Range | Performed | Pathologist | | | | | At | Signature | + + + + + + | VASC LAB | Med Rec No: [id number] | | | | | VENOUS | Name: | | | | | DUPLEX | LAUREN BAXTER | | | | | LOWER | Birthday: 1945 | | | | | EXTREMITY | Sex: F | | | | | BILATERAL | Alias:Patient Location: | | | | | COMPLETE | [id number]: Outpatient | | | | | | ActiveOrdering | | | | | | Physician: MIK Bell | | | | | | Declna ROSASVDLEB | | | | | | VENOUS DUP BILAT CMP LE | | | | | | completed on 04/06/2009 | | | | | | 3:27 PMAccession # | | | | | | [id number]:LOWER | | | | | | EXTREMITY VENOUS | | | | | | EXAMINATION: | | | | | | 04/06/2009 Dictated | | | | | | 04/06/2009INDICATION: | | | | | | Leg pain.FINDINGS: | | | | | | The deep and | | | | | | superficial veins of | | | | | | both lower | | | | | | extremitieswere examined | | | | | | with the duplex | | | | | | scanner. There are | | | | | | normal flows | | | | | | andresponses to | | | | | | augmentation and | | | | | | compression maneuvers in | | | | | | the deep andsuperficial | | | | | | veins bilaterally. | | | | | | There is no evidence | | | | | | of | | | | | | DVTbilaterally.IMPRESSIO | | | | | | N:Normal bilateral lower | | | | | | extremity venous | | | | | | examination. There is | | | | | | noevidence of DVT | | | | | | bilaterally.END | | | | | | IMPRESSION:I have | | | | | | personally viewed this | | | | | | procedure/exam and | | | | | | reviewed this | | | | | | report.STATUS FINAL / | | | | | | Dr. MAGGIE Schuler | | | | | | MITCHELLSTATUS | | | | | | PRELIMINARY - UNSIGNED / | | | | | | Fang Smith | | | | + + + + + + + + | Specimen | + + | | + + + +---------+ + + | Performing | Address | City/State/Zipcode | Phone Number | | Organization | | | | + +---------+ + + | [facility]PARTMENT OF | | | | | RADIOLOGY | | | | + +---------+ + + INR (04/06/2009 1:52 PM PDT) + + [...] | [facility] | [facility] | [place] [address] | | | PATHOLOGY | [address] | | | + + + + + | [facility] DEPARTMENT OF | [facility] | [place] [address] | | | PATHOLOGY | [address] [...] [facility] | [address] | [place] [address] | | | PATHOLOGY | [address] | | | + + + + + | [facility] | [address] | [place] [address] | | | PATHOLOGY | [address] [...] [facility] | [address] | [place] [address] | | | PATHOLOGY | [address] | | | + + + + + | [facility] | [address] | [place] [address] | | | PATHOLOGY | [address] | | | + + + + + documented in this encounter Visit Diagnoses + + | Diagnosis | + + | Other pulmonary embolism and infarction - Primary | + + documented in this encounter
--- OUTSIDE RECORDS SUMMARY | ~2020-05-04 | XMS | Encounter Summary ---
Demographics + + + | Address | [address] | | | [...] + | Gene Gee | ECON | [address] | | | | | [place], | | | | | [place] [address] | | + + + + + Care Team Providers + +------+ + | Care Wood Technologist Name | Role | Phone | + +------+ + | Alec Hill MD | PCP | | + +------+ + Encounter Details +--------+ + + + + | Date | Type | Department | Care Team | Description | +--------+ + + + + | 02/10/ | MyChart | John [facility] | Tapan Horowitz MD | bone density | | 2020 | Encounter | [facility] | [address] | | | | | [facility] | [facility], | | | | | [address] | [place] [address] | | | | | [address] | [phone] | | | | | Phys[facility]ilion | | | | | | Physician's | | | | | | [place], | | | | | | [place] [address] | | | | | | [phone] | | | +--------+ + + + [...]
--- OUTSIDE RECORDS SUMMARY | ~2020-05-04 | XMS | Encounter Summary ---
Demographics + + + | Address | [address] | | | [place] [address] | + + + | Home Phone [...] + | Gene Gee | ECON | [address] | | | | | [place], | | | | | [place] [address] | | + + + + + Care Team Providers + +------+ + | Care Rn Maternity Name | Role | Phone | + [...] Closed | | Gastroenterol | Diagnoses | Tavan, | Gas Endo | | | | ogy | Chronic | Pete Sheikh, | [facility] [address] | | | | | cough | MD | [address] | | | | | Procedures | | Iron | | | | | CONSULT TO | | [place], [address]th | | | | | GI PROCEDURE | | floor | | | | | UNIT: [address] | | [place], [place] | | | | | PH CONSULT | | [address] | | | | | TO GI | | Phone: | | | | | PROCEDURE | | [phone] | | | | | UNIT: | | Fax: | | | | | ESOPHAGEAL | | [phone] | | | | | MANOMETRY | | | +--------+--------+ + + + + Encounter Details +--------+ + + + + | Date | Type | Department | Care Team | Description | +--------+ + + + + | 01/07/ | Hospital | [facility] | Nurse, G[address] | | | 2012 | Encounter | [facility] [address] [facility] | | | | | [facility] for | Road [place], [place] | | | | | Health and Healing, | [address] | | | | | [address] | | | | | | [place], [place] | | | | | | [address] | | | | | | [phone] | | | +--------+ + + + [...] + + + | Blood Pressure | 144/76 | 01/07/2013 1:00 PM | | | | | PDT | | + + + + + | Pulse | 64 | 01/07/2013 1:00 PM | | | | | PDT | | + + + + + | Temperature | 36.8 C (98.3 F) | 01/07/2013 1:00 PM | | | | | PDT | | + + + + + | Respiratory Rate | 16 | 01/07/2013 1:00 PM | | | | | PDT | | + + + + + | Oxygen Saturation | 100% | 01/07/2013 1:00 PM | | | | | PDT | | + + + + + | Inhaled Oxygen | - | - | | | Concentration | | | | + + + + + | Weight | 64.9 kg (143 lb) | 01/07/2013 1:00 PM | | | | | PDT | | + + + + + | Height | - | - | | + + + + + | Body Mass Index | 23.08 | 12/26/2012 3:00 PM | | | | | [...] documented as of this encounter Procedure Notes Ligia, Faculty - 02/04/2013 12:06 PM PDTAssociated Order(s): PROCEDURE NOTEElectronically s igned by Faculty Other at 02/04/2013 12:06 PM PDTOther, Faculty - 01/20/2013 10:18 AM PDTAss ociated Order(s): ESOPHAGEAL MOTILITY 10 :18 AM PDTOther, Faculty - 01/20/2013 10:18 AM PDTAssociated Order(s): AMBULATORY PH MONITOR ING [facility] Plan of Treatment Not on filedocumented as of this encounter Procedures + +--------+ + + + | Procedure Name | Priori | Date/Time | Associated Diagnosis | Comments | | | ty | | | | + +--------+ + + + | PROCEDURE NOTE | Routin | 08/19/2015 | | Results for this | | | e | 9:59 PM | | procedure are in the | | | | PST | | results section. | + +--------+ + + + | AMBULATORY PH | | 01/07/2013 | | Results for this | | MONITORING | | 12:00 AM | | procedure are in the | | | | PDT | | results section. | + +--------+ + + + | ESOPHAGEAL MOTILITY | | 01/07/2013 | | Results for this | | | | 12:00 AM | | procedure are in the | | | | PDT | | results section. | + +--------+ + + + documented in this encounter Results PROCEDURE NOTE (08/19/2015 9:59 PM PST) + + | Transcriptions | + + | Ligia, Faculty - 02/04/2013 12:06 PM PDT | + + ESOPHAGEAL MOTILITY (01/07/2013 12:00 AM PDT) + + + | Narrative | Performed At | + + + | | | | | | + + + + + | Procedure Note | + + | Ligia Faculty - 01/20/2013 10:18 AM PDT | + + AMBULATORY PH MONITORING (01/07/2013 12:00 AM PDT) + + + | Narrative | Performed At | + + + | | | | | | + + + + + | Procedure Note | + + | Ligia Faculty - 01/20/2013 10:18 AM PDT | + + documented in this encounter Visit Diagnoses Not on filedocumented in this encounter"
--- OUTSIDE RECORDS SUMMARY | ~2020-05-04 | XMS | Encounter Summary ---
Demographics + + + | Address | [address] | | | [place] [address] | + + + | Home Phone [...] + | Gene Gee | ECON | [address] | | | | | [place], | | | | | [place] [address] | | + + + + + Care Team Providers + +------+ + | Care Head Scorer Name | Role | Phone | + [...] | | | | | | | [address] | | | | | | | [address] | | | | | | | [place], [place] | | | | | | | [address] | | | | | | | Phone: | | | | | | | [phone] | | | | | | | Fax: | | | | | | | [phone] | + +--------+ + + + + Encounter Details +--------+---------+ + + + | Date | Type | Department | Care Team | Description | +--------+---------+ + + + | 10/23/ | Office | Surgical Oncology | [facility], | Malignant neoplasm | | 2017 | Visit | at [facility] [address] | MD [address] | of right female | | | | [facility] | [place], [place] | breast, unspecified | | | | Health and Healing, | [address] | site of breast (HCC) | | | | [address] | [phone] | (Primary Dx) | | | | [place], [place] | | | | | | [address] | | | | | | [phone] | | | +--------+---------+ + + + [...] + + + | Blood Pressure | 120/72 | 10/23/2016 1:08 PM | | | | | PDT | | + + + + + | Pulse | 99 | 10/23/2016 1:08 PM | | | | | PDT | | + + + + + | Temperature | 1 C (33.8 F) | 10/23/2016 1:08 PM | | | | | PDT | | + + + + + | Respiratory Rate | 16 | 10/23/2016 1:08 PM | | | | | PDT | | + + + + + | Oxygen Saturation | - | - | | + + + + + | Inhaled Oxygen | - | - | | | Concentration | | | | + + + + + | Weight | 70.3 kg (155 lb) | 10/23/2016 1:08 PM | | | | | PDT | | + + + + + | Height | 165.5 cm (5' 5.15") | 10/23/2016 1:08 PM | | | | | PDT | | + + + + + | Body Mass Index | 25.67 | 10/23/2016 1:08 PM | | | | | PDT | | + + + + + documented in this encounter Progress Notes [facility] MD - 10/23/2016 1:10 PM PDTI performed a history and physical examination of the patient and discussed her management with the physicians dam tender assistant-certified. I rev iewed the PA-C s note and agree with the documented findings and plan of care. BP 120/72 | Pulse 99 | Temp (Src) 1 C (33.8 F) (Oral) | RR 16 | Ht 1.655 m (5' 5.15") | Wt 70.3 kg (155 lb) | BMI 25.67 kg/(m^2) Gen: WD/WN in NAD. Not jaundiced. [...] year with left mammograms. [facility] MD printing estimator Division of Surgical Oncology MailCode [phone], [place] [address] Elijah Kemp PA- C - 10/23/2016 1:10 PM [facility] NOTE 10/23/[address] [facility] MD Adriana Flynn is a 71 y.o. female is here today in the Breast Clinic for yearly followup wi mammogram. SUBJECTIVE: Briefly, Adriana Flynn is a 71 y.o. female who is from [place] who is status-post right total mastectomy, and sentinel lymph node biopsy on March 2007. 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 Invasive tumor marylu ured up to 1.4 cm, with intermediate grade DCIS, negative margins, there was ITC in 2/5 no mary. This was followed by right axillary dissection in April 2007. Pathologic stage, T1cN0(i+), Stage I , and is now 10 years post-op and RTC for yearly imaging and follow-up. She was recently diagnosed with atrial fibrillation and will be following up with Dr. Logan er were management of this. She is taking a rivaroxaban. Review of Systems Constitutional: Negative. HENT: Negative. Eyes: Negative. Respiratory: Negative. Cardiovascular: Negative. Gastrointestinal: Negative. Genitourinary: Negative. Musculoskeletal: Negative. Skin: Negative. Neurological: Negative. Endo/Heme/Allergies: Negative. Psychiatric/Behavioral: Negative. OBJECTIVE: BP 120/72 | Pulse 99 | Temp (Src) 1 C (33.8 F) (Oral) | RR 16 | Ht 1.655 m (5' 5.15") | Wt 70.3 kg (155 lb) | BMI 25.67 kg/(m^2) General: She is a well-developed, and well-nourished female in no apparent distress, alert and oriented x3. Heart: Regular, Rate and Rhythm. No murmurs or gallops. Lungs: Clear to auscultation bilaterally. Breast exam: Breasts: The breasts are roughly symmetric. There is no obvious skin change, dimpling or mass. She has a reconstructed right breast. Well-healed right mastectomy scar no evidence of loc al recurrence. Right nipple tattoo. There was no right axillary lymphadenopathy. Palpation of left breast does not reveal any dominant masses. There was no nipple discharge . There was no left axillary lymphadenopathy. Incisions are clean, dry, intact with no drai nage, erythema, or hematoma. Axillary incision is clean, dry, intact, with no swelling or dr ainage. Nodes: no supraclavicular, cervical, or axillary adenopathy on either side Extremities: There is no upper extremity swelling. ROM is intact. Abdomen: Soft and non-tender with no organomagaly or masses DATA: SURGICAL PATHOLOGY Date Value Ref Range Status 10/04/2012 Final SOURCE OF SPECIMEN:A Right breast scar h/o breast cancer SOURCE OF SPECIMEN:B Right breast capsule SOURCE OF SPECIMEN:C Left breast mass SOURCE OF SPECIMEN:D Left breast tissue Final Pathologic Diagnosis: A: Right breast scar, history of breast cancer, reconstruction: - Skin, breast parenchyma, and connective tissue with surgical site changes - Negative for malignancy B: Right breast capsule: - Fibrotic connective tissue - Negative for malignancy C: Left breast mass: - Breast parenchyma with fibrocystic changes and focal calcification - Negative for malignancy D: Left breast tissue: - Skin and underlying connective tissue with scar - Negative for malignancy Case seen by: Bradley Montgomery/Student Fellow Dionicio Cervantes M.D., Pathologist / Clinical History: The patient is a 67-year-old female status post breast cancer reconstruction with implant exchange. Gross Description: Received are 4 specimens fresh in containers labeled with the patient name (initials CB) and: A: Right breast scar history of breast cancer: Received is an elongated skin excision measuring 9 x 0.3 x 0.5 cm and an additional yellow-red attached piece of adipose tissue measuring 1.6 x 1.3 x 0.4 cm. The entire specimen is submitted. The specimen has an ischemic time of 8:12 on 10/04/2012. The specimen is placed in formalin at 12:10 on 10/04/2012 and put in the breast processor fixing until 10:00 p.m. on 10/04/2012. B: Right breast capsule: Received are multiple rubbery/soft, evangelista-red pieces of tissue measuring 5.5 x 3 x 1 cm in aggregate. The surfaces are partially smooth/shaggy with no grossly identified lesion. Automotive Buyer sections are submitted. The specimen has an ischemic time of 8:45 on 10/04/2012. The specimen is placed in formalin at 9:40 on 10/04/2012 and put in the breast processor fixing until 10:00 p.m. on 10/04/2012. C: Left breast mass: Received is a 2.4-gram, 2.5 x 1.8 x 1.4-cm, lobulated, yellow-pink piece of adipose tissue with focal cautery. The entire specimen is inked black. Sectioning through the specimen reveals yellow, fibrofatty tissues. No lesions or nodules are grossly identified. The specimen is trisected and entirely submitted. The specimen has an ischemic time of 9:45 on 10/04/2012. The specimen is placed in formalin at 10:35 on 10/04/2012 and put in the breast processor fixing until 10:00 p.m. on 10/04/2012. D: Left breast tissue: Received weighing 40.8 grams, measuring 5 x 4 x 4 cm are multiple yellow-red, lobulated adipose tissue and multiple skin fragments. The largest portion of tissue with attached skin measures 5.5 x 5.5 x 1.3 cm and is inked black. The epidermal surface is evangelista-pink and grossly unremarkable. Sectioning through the tissue reveals no grossly identified lesions or nodules. Automotive Buyer sections are submitted. The specimen has an ischemic time of 10:25 on 10/04/2012. The specimen is placed in formalin at 12:10 on 10/04/2012 and put in the breast processor fixing until 10:00 p.m. on 10/04/2012. Cassette Index: A: Right breast scar history of breast cancer: A1-2 B: Right breast capsule: B1 C: Left breast mass: C1-3 D: Left breast tissue: D1-3 AMJ:tp My electronic signature indicates that I have personally reviewed all diagnostic slides, the gross and/or microscopic portion of this report and formulated the final diagnosis. Rendering Diagnostician: Dionicio Cervantes M.D. Pathologist Electronically Signed 10/08/2012 1:56PM ASSESSMENT: Adriana Flynn is a 71 y.o. female is here for yearly surveillance. She is clin ically and radiographically RISA. Pathologic stage, T1cN0(i+), Stage I, hormone receptor po sitive HER-2/mayela negative. PLAN: 1. Return to clinic in 12 months months for a clinical exam and mammography. Elijah Cardona PA-C SURGICAL [facility]Y AT [facility] MailCode [id number], [place] [address] documented in this encounter Plan of Treatment Not on filedocumented as of this encounter Visit Diagnoses + + | Diagnosis | + + | Malignant neoplasm of right female breast, unspecified site of breast - Primary | + + documented in this encounter
--- OUTSIDE RECORDS SUMMARY | ~2020-05-04 | XMS | Encounter Summary ---
Demographics + + + | Address | [address] | | | [place] [address] | + + + | Home Phone [...] + | Gene Gee | ECON | [address] | | | | | [place], | | | | | [place] [address] | | + + + + + Care Team Providers + +------+ + | Care Shag Truck Driver Name | Role | Phone | + +------+ + | Antony Ribera MD | PCP | | + +------+ + Reason for Visit + +--------+ + | Reason | Onset | Comments | | | Date | | + +--------+ + | Letter Encounter | 11/03/ | | | | 2007 | | + +--------+ + Encounter Details +--------+ + + + + | Date | Type | Department | Care Team | Description | +--------+ + + + + | 11/03/ | Telephone | Surgical Oncology | [facility], | Letter Encounter | | 2007 | | at [facility] [address] | MD [address] | | | | | [facility] | [place], [place] | | | | | Health and Healing, | [address] | | | | | [address] | [phone] | | | | | [place], [place] | | | | | | [address] | | | | | | [phone] | | | +--------+ + + + [...] Notes Telephone Encounter - Claribel Garza - 11/04/2007 10:53 AM PDTPatient called to request a letter to send to insurance requesting 30 additional PT [address]. Per Dr. Heart- letter sent to patient. (Please see letter encounter in chart). Time spent 15 minutes. Electronical ly signed by Claribel Garza at 11/04/2007 10:53 AM PDTdocumented in this encounter Plan of Treatment Not on filedocumented as of this encounter Visit Diagnoses Not on filedocumented in this encounter"
--- OUTSIDE RECORDS SUMMARY | ~2020-05-04 | XMS | Encounter Summary ---
Demographics + + + | Address | [address] | | | [place] [address] | + + + | Home Phone [...] + | Gene Gee | ECON | [address] | | | | | [place], | | | | | [place] [address] | | + + + + + Care Team Providers + +------+ + | Care Gold Letterer Name | Role | Phone | + +------+ + | Antony Ribera MD | PCP | | + +------+ + Encounter Details +--------+ + + + + | Date | Type | Department | Care Team | Description | +--------+ + + + + | 10/28/ | MyChart | Digestive Health | Alea Noriega MD | RE:Motility | | 2009 | Encounter | Center at [facility] [address] | [address] | (manometry) study | | | | [address] [facility] | [address] [place], | | | | | for Health and | [place] [address] | | | | | [facility], [address] | [phone] | | | | | [place], [place] | | | | | | [address] | | | | | | [phone] | | | +--------+ + + + [...]
--- OUTSIDE RECORDS SUMMARY | ~2020-05-04 | XMS | Encounter Summary ---
Demographics + + + | Address | [address] | | | [place] [address] | + + + | Home Phone [...] + | Gene Gee | ECON | [address] | | | | | [place], | | | | | [place] [address] | | + + + + + Care Team Providers + +------+ + | Care Bridge Tender Name | Role | Phone | + +------+ + | Antony Ribera MD | PCP | | + +------+ + Encounter Details +--------+ + + + + | Date | Type | Department | Care Team | Description | +--------+ + + + + | 09/11/ | MyChart | Cardiology | Elijah Whalen, | RE: Heart episode | | 2017 | Encounter | Arrhythmia at [facility] | [address] | | | | | [address] | [address] | | | | | [facility] | [place], [place] | | | | | and Healing, | [address] | | | | | [facility] | [phone] | | | | | Floor [place], [place] | | | | | | [address] | | | | | | [phone] | | | +--------+ + + + [...]
--- OUTSIDE RECORDS SUMMARY | ~2020-05-04 | XMS | Encounter Summary ---
Demographics + + + | Address | [address] | | | [place] [address] | + + + | Home Phone [...] + | Gene Gee | ECON | [address] | | | | | [place], | | | | | [place] [address] | | + + + + + Care Team Providers + +------+ + | Care Tax Adjuster Name | Role | Phone | [...] | Closed | | | Diagnoses | Sly, | Ambulatory | | | | | Carcinoma | MD Luís | Surgery [address] | | | | | in situ of | [address] | SILVIA Harden | | | | | breast | Ave | Anthony [facility]comb | | | | | Breast | [place], [place] | Driss Cal[place]oun | | | | | cancer (HCC) | [address] | Pavilion | | | | | Procedures | Phone: | [phone] | | | | | CONSULT TO | [phone] | [place], [place] | | | | | [place] | Fax: | [phone] | | | | | REMOVE | [phone] | | | | | | ARMPITS | | | | | | | LYMPH NODES | | | | | | | COMPLT | | | +--------+--------+ + + + + Reason for Visit + +--------+ + | Reason | Onset | Comments | | | Date | | + +--------+ + | Follow-up visit | | | + +--------+ + | Pre-op evaluation | 03/28/ | | | | 2006 | | + +--------+ + Encounter Details +--------+---------+ + + + | Date | Type | Department | Care Team | Description | +--------+---------+ + + + | 03/28/ | Office | [facility] | [facility], | 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 | Visit | at [facility] [address] | MD [address] | Breast; Breast | | | | [address] | [place], [place] | Cancer (HCC) | | | | [id number] [facility] | [address] | | | | | [facility], | [phone] | | | | | [place] [address] | | | | | | [phone] | | | +--------+---------+ + + + [...] + | Blood Pressure | 121/69 | 03/28/2007 9:23 AM | | | | | PDT | | + + + + + | Pulse | 67 | 03/28/2007 9:23 AM | | | | | PDT | | + + + + + | Temperature | 36.8 C (98.2 F) | 03/28/2007 9:23 AM | | | | | PDT [...] Patient Instructions Patient Instructions Claribel Garza - 03/28/2007 10:32 AM PDTRegistration Locations (pleas e check in at one of the following registration desks prior to surgery) For surgeries scheduled to take place on the roper at the [facility]: Surgeries scheduled in the [facility] ([address] [place] [address]): registration is located on the 4th floor of [facility] (Day Surgery). Surgeries scheduled in the [facility]: registration is located on the 9th floor. Surgeries scheduled in [facility]: registration is located on the 6th floor. Surgeries scheduled in the [facility]: registration is located i n the [facility] on the first floor. For surgeries scheduled to take place at the [facility] & [facility]: registration is l ocated on the 4th [...] Smoking Cessation Brochure. OUTPATIENT SURGERY INFORMATION at [facility] Prior to surgery, you will need to do one of the followin. Phone PAT Appointment (Pre-Admission Testing Clinic) is on at . Call [phone] or toll free ext [phone] at appointed time. 2. Post-Op Appointment on 04/25/07 at . ANCILLARY SERVICES 1. Blood Work (Lab is located on the 3rd floor of [facility].) No Appointment required. 2. Chest Xray (Radiology is located on the 4rd floor of [facility].) No appointment required. 3. EKG (EKG is located on the 2nd floor of [facility], Room 2002. Near elevator A) No appointment required. * Stop blood thinners (Aspirin, Warfarin, etc.) as directed * Nothing to eat or drink (including water) after midnight on 04/18/07 (the night prior to your surgery). * REPORT TO THE 4TH FLOOR OF THE [facility], ROOM 4519 (AMBULATORY DAY SURGERY) ON 04/19/07 * For arrival time, please call 04/18/07 between 1:00 p.m. & 3:00 p.m. * Please shower, shampoo and shave before being admitted to the hospital. * Do not wear any make up, nail maori or jewelry for the surgery. * Carefully read all literature given to you regarding your surgery. * REMEMBER: You may NOT drive yourself home after surgery! Please make arrangements to hav e someone take you home after you are released from the Day Surgery Facility. * [facility] DIRECTIONS TO ADMITTING FOR DAY SURGERY 1. Take the elevator to the 3rd Floor of the [facility] and turn left. 2. Turn right and pass the lab, follow the skybridge that crosses over the street. 3. You will arrive in front of B elevator, turn right and proceed down the hallway and up t he stairs. 4. Day Stay is on the right side at the top of the stairs, Room #4519. WheelChair Directions 1. Take the elevator to the [facility] and turn left. 2. Turn right and pass the lab, follow the skybridge that crosses over the street. 3. take elevator B to the 2nd Floor (Down one floor). 4. Turn left and proceed through hallway and up the ramp to the [facility]. 5. Continue down the hallway to the elevator (located in front of the Dept of Anesthesiolog y Offices) 6. Take the elevator to the 4th Floor. 7. Turn left off of the elevator and go straight down the hallway. 8. Day Stay is on the right side room #4519. Contact Information If you have any questions, please call us during business hours: [facility] Toll Free X [phone] Breast [facility] After hours and on weekends, please call the paging fiberglass container winding operator at and ask for the [facility] Surgery MD production control technologist.Registration Locations (please check in at one of the following registration desks prior to surgery) For surgeries scheduled to take place on the roper at the [facility]: Surgeries scheduled in the [facility] ( [facility]): registration is located on the 4th floor of [facility] (Day Surgery). Surgeries scheduled in the [facility]: registration is located on the 9th floor. Surgeries scheduled in [facility]: registration is located on the 6th floor. Surgeries scheduled in the [facility]: registration is located i n the [facility] on the first floor. For surgeries scheduled to take place at the [facility] & [facility]: registration is l ocated on the 4th [...] Understanding Advance Directives, and Smoking Cessation Brochure. documented in this encounter Progress Notes Makayla Yu - 03/28/2007 2:39 PM PDT Addended by: MAKAYLA YU on: 03/28/2007 2:39:14 PM Modules accepted: Orders evi Brody - 03/28/2007 11:12 AM PDT Breast Cancer Clinic Post-Op Note 03/28/09 Ms. 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 She was admitted on March 19, 2007 and underwent a right mastectomy with sentinel lymph node biopsy. She is here for fol low up and to review her pathology. Initially in the operating room, her sentinal lymph node came back pathologically negative and no axillary node dissection was performed. However, on further pathologic review, the s entinal node and two nodes on the tail of the breast tissue were positive for carcinoma. Ms. Flynn is recovering well from her procedure. She has experienced only minor tenderness controlled with Tylenol, and some mild irritation at the TIMOTHY drain insertion site. Her carlos in is now putting out around 15cc a day of sanguinous, serous fluid. She has noted no new l umps or masses in her contralateral breast. Past Medical History Diagnosis Date Sjogrens Syndrome 1995 Fibromyalgia 1995 Mitral Valve Prolapse 1989 GERD (Gastroesophageal Reflux Disease) 1995 Asthma 1999 TMJ (Dislocation of Temporomandibular Joint) Fibrocystic Disease of Breast 1979 Diverticul Disease Small and Large Intestine, no Perforati or Abscess Skin Cancer back Small Bowel Obstruction 07/20,10/19,02/19 Atrial Tachycardia 07/20 Bursitis 2006 Plantar Fascial Fibromatosis 2007 plantar fascial tear Past Surgical History Procedure [...] ablation 12/16/2004,09/21/2005 Dr. Fuentes, [facility] Current outpatient prescriptions : Fluoxetine HCl (PROZAC) 20 mg Oral Capsule, take 1 capsu le (20 mg) by oral route prn, Disp: , Rfl: Atenolol 25 mg Oral Tablet, take 1 tablet (25 mg) by oral route once daily, Disp: , Rfl: Ezetimibe (ZETIA) 10 mg Oral Tablet, take 1 tablet (10 mg) by oral route once daily, Disp: , Rfl: Fluoxetine HCl (PROZAC) 20 mg Oral Capsule, take 1 capsule (20 mg) by oral route once daily in the morning, Disp: , Rfl: Docusate Sodium (STOOL SOFTENER) [...] VITAMINS-LIPOTROPICS OR, None Entered, Disp: , Rfl: Amino Acids (AMINO ACID) Oral Capsule, 600 mg, Disp: , Rfl: DHEA OR, 5 mg daily, Disp: , Rfl: PROTONIX 40 MG TAB, take 1 tablet (40mg) by oral route once daily, Disp: , Rfl: PEPCID 20 MG TAB, take 1 tablet (20mg) by oral route 2 times per day, Disp: , Rfl: SPIRIVA WITH HANDIHALER 18 MCG & INHALATION CAPS, inhale the contents of one capsule (18mcg ) by inhalation route once daily, Disp: , Rfl: ULTRAM 50 MG TAB, take 1 tablet (50mg) by oral route every 6 hours as needed, Disp: , Rfl: ETHMOZINE 200 MG TAB, take 1 tablet (200mg) by oral route every 8 hours, Disp: , Rfl: MULTIVITAMIN CAP, None Entered, Disp: , Rfl: LEVSIN 0.125 MG TAB, take 1 tablet (0.125mg) by oral route every 4 hours as needed, Disp: 6 0, Rfl: 6 PULMICORT 0.25 MG/2 ML INHL NEBU, , Disp: , Rfl: Physical Exam BP 121/69 | Pulse 67 | Temp (Src) 98.2 F (36.8 C) (Oral) Gen: Awake, alert, oriented x3 Cardiovascular: RRR Pulm: CTAB Chest: right breast incisional scar clean, dry, intact with 2-3 ecchymoses. Axillary drain in place with sanguinous fluid draining. No erythema, non tender, non fluctuant axiallary incision site. Abd: soft, nontender, nondistended. Midline scar healed. Path: 03/19/07 SOURCE OF SPECIMEN:A [place] lymph node-FS SOURCE OF SPECIMEN:B Right total masectomy Final Pathologic Diagnosis: A: [place] lymph node, biopsy: - Isolated keratin-positive tumor cells in one of one lymph node (see Comment) B: Breast, right, total mastectomy: - Invasive ductal carcinoma, modified Nxwjqc-Snunp-Wzyeqevejz grade I of III (see comment) - Invasive tumor measures 1.4 cm in histologic sections - Tumor extends to within 0.4 cm of anterosuperior margin and 0.1 cm of deep margin - Angiolymphatic invasion is not seen. 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 Comment: The invasive component is present in the upper outer quadrant and associated with extensive ductal carcinoma in situ. The tumor is consistent with mSBR grade I (tubule formation = 2, pleomorphism = 2, mitosis = 1, total score of 5) invasive ductal carcinoma. Invasive tumor extends to within 0.4 cm of anterosuperior margin (slide B1) and within 0.1 cm from the deep margin (slide B18). The sentinel lymph node is stained with CKCAM5.2 and llanos CK per the sentinel lymph node protocol and demonstrates 2 foci of keratin positive tumor cells (approximately 2 and 4 cells respectively), seen in retrospect on H and E stained permanent sections, but not apparent on frozen section slides. From the axillary tail of the mastectomy specimen, one of four lymph nodes is positive for isolated tumor cells (3 groups of >50 cells total), seen on H and E sections, with no focus greater than 0.2 mm. Case reviewed by: Eron Salinas M.D./Resident Julia Albright, Ph.D., M.D./Pathologist :zandra Pathology Staging Summary Breast Cancer Synopsis Specimens Involved Specimens: A: [place] lymph node-FS B: Right total masectomy Tumor Site: Upper outer quadrant Invasive carcinoma present Invasive greatest dimension: 1.4cm Histologic Type: Invasive ductal carcinoma with an extensive intraductal component Tumor Grade and modified Gee-Alonso score: Grade I: 3-5 points Tubule Formation: Score 2 Nuclear Pleomorphism: Score 2 Mitotic Count: Score 1 Margin(s) negative for invasive carcinoma Closest margin(s) and distance in cm: 0.1 cm from deep; 0.4 cm from superoanterior Angiolymphatic invasion: Absent In situ carcinoma present In situ greatest dimension: 4cm Histologic Type: Ductal carcinoma in situ Nuclear grade in situ: Intermediate In situ carcinoma with comedonecrosis Margin(s) negative for DCIS Close margin(s) and distance in cm: 0.1 cm from deep AJCC Stage (pTNM) Primary Tumor (pT): pT1c Regional Nodes (pN): pN0(i+) Number of regional nodes involved: 2 Number of regional nodes examined: 5 Distant Metastasis (pM): pMX Nipple: no diagnostic abnormality Microcalcifications: Present in DCIS Clinical History: The patient is a 61-year-old female with Sjogren syndrome. Patient presents with right breast cancer. Core biopsy showed DCIS (suspicious for invasive ductal). Planned procedure: right mastectomy with right sentinel lymph node biopsy. Gross Description: Two specimens are received fresh in containers labeled with the patient name (initials CB). A: [place] lymph node, FS: Received fresh is an irregular, soft, yellow-evangelista tissue, measuring 2.2 x 1.3 x 0.7 cm. The specimen is bisected revealing a single lymph node. The entire lymph node is frozen and resubmitted in toto. Remaining tissue not used for frozen section diagnosis is submitted in toto. B: Right total mastectomy: Received is a 550g, (25.0(ML) x 20.0(SI) x 4.5 (AP) cm) mastectomy specimen including axillary tail (5.0 x 4.0 x 2.5 cm). The overlying skin ellipse (20.5 (ML) x 8.0 (SI) cm) contains an unremarkable areola (2.5 x 2.5 cm) and nipple (1.2 x 1.2 x 1.0 cm). The specimen is inked as follows: superoanterior blue, inferoanterior green, deep black. Serial sectioning reveals diffuse fibrocystic changes and an ill-defined, firm, stellate evangelista-white mass in the upper-outer quadrant that measures 4.2 x 2.2 x 1.5 cm. The lesion appears to abut the anterior margin and extend to within 0.3 cm of the superior and 0.4 cm from the deep margin. No other mass lesions are present within the breast. Sectioning and palpation of the axillary tail reveals 11 possible lymph node that are submitted in toto. Channel Director sections are submitted. Cassette Index: A: [place] lymph node, FS: A1, frozen section residue A2, remainder of specimen B: Right total mastectomy: B1, lateral-most section of tumor B2, next medial section of tumor B3-5 tumor B6, hemorrhagic area of stellate possible tumor lateral to nipple line B7, lower outer quadrant B8-9, nipple and areola B10, upper inner quadrant B11, lower inner quadrant B12, additional tumor adjacent to block B3 B13, hemorrhagic area subjacent to nipple B14, two possible lymph nodes B15, four possible lymph nodes B16, four possible lymph nodes B17, one possible lymph node B18-20, additional sections of tumor DVS:lab IHC Results: Immunohistochemical stains are performed on formalin-fixed, paraffin embedded tissue, using an avidin-biotin protocol that includes appropriate positive and negative controls. Block B19 Population: Lesional cells Marker Result Comment Estrogen Receptor Clone [id number] Positive 80% of invasive and >95% of in situ carcinoma, 3+ intensity Progesterone Receptor Clone 1E2 Positive variable, average 30% of invasive and in situ carcinoma, 2+ intensity Her-2/Maddi CB11, Pathway TM Negative 1+, negative Note: The ER and TX immunohistochemical stains are performed with standard kits from [employer]. The ER and TX stains are considered positive if there is moderate to strong nuclear staining in at least 10% of the tumor cells. % of invasive tumor cells exhibiting complete HER-2/maddi membrane stainin% Uniformity of HER-2/maddi staining: absent Homogeneous, dark circumferential HER-2/maddi staining: absent Her-2/maddi immunohistochemical staining is performed with the [employer] [facility] PATHWAYTM kit, including monoclonal antibody CB11. This protocol is FDA approved and is performed without technical modification. Positive, negative and equivocal controls showed appropriate reactivity. Tissue specimens processed at [facility] are routinely fixed between 6-48 hours in neutral buffered formalin; core biopsy specimens are fixed longer than 1 hour. Scoring and interpretation are per the [employer] [facility] scoring guide as modified by ASCO/CAP 2007 guidelines: score 0-no membrane staining (interpretation: negative); score 1+-- Faint, partial staining of the membrane (interpretation: negative, cases are sent for reflex FISH testing); score 2+-- Weak complete staining of the membrane, greater than 10% of invasive cancer cells (interpretation: equivocal, cases are sent for reflex FISH testing); 3+-- Intense complete staining of the membrane in greater than 30% of invasive cancer cells, also requiring intense, uniform membrane staining, dark circumferential 'chicken wire' staining (interpretation: positive). Inadequate specimens are not interpreted. [facility] participates in proficiency testing for Her-2/maddi immunohistochemistry. Reference: Karen Banks al. [place] Society of Clinical Oncology/College of [place] [employer]ologists Guideline Recommendation for Human Epidermal Growth Factor Receptor 2 Testing in Breast Cancer. Arch Pathol Lab Med 131:18-43. 2007. (Analyte specific reagents are used in many laboratory tests necessary for standard medical care and generally do not require FDA approval. This test was developed and its performance characteristics determined by [facility]. It has not been cleared or approved by the U.S. Food and Drug Administration.) I have reviewed all diagnostic slides and have edited the gross and/or microscopic portion of this report as part of my pathologic assessment and final diagnosis. Frozen Section Diagnosis: [place] lymph node (specimen A): - No tumor seen Confirmed by: Eron Salinas M.D. / Resident and Demond Gerardo M.D., Ph.D. / Pathologist Rendering Diagnostician: Julia Albright Ph.Franklin, MCarlyn. Pathologist Electronically Signed 03/25/2007 Assessment: 61 y.o. female with [id number] disease s/p right mastectomy and sentinal lymph no de biopsy. Plan: - Axillary node dissection scheduled for April 18, 2007 - Will require hormone therapy after this. Her need for systemic chemotherapy remains unde r discussion and will depend on the pathology results from her dissection. - the risks and benefist were discussed and we will see her for PAT and Surgery in 3 weeks time. - Given her distance from clinic and low drain output, her TIMOTHY drain was removed today. Devi Brody MD Department of Surgery [facility] A [address] [place] [address] Dr. Heart was present for the Physical Exam, Assessment and Plan Devi Chavarria - 03/28/2007 11:11 AM PDT Pre-Procedure History and Physical Date of Admission: 04/19/07 HISTORY: Breast Cancer Clinic Post-Op Note 03/28/09 Ms. 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 She was admitted on March 19, 2007 and underwent a right mastectomy with sentinel lymph node biopsy. She is here for [facility] and to review her pathology. Initially in the operating room, her sentinal lymph node came back pathologically negative and no axillary node dissection was performed. However, on further pathologic review, the s entinal node and two nodes on the tail of the breast tissue were positive for carcinoma. Ms. Flynn is recovering well from her procedure. She has experienced only minor tenderness controlled with Tylenol, and some mild irritation at the TIMOTHY drain insertion site. Her carlos in is now putting out around 15cc a day of sanguinous, serous fluid. She has noted no new l umps or masses in her contralateral breast. Past Medical History Diagnosis Date Sjogrens Syndrome 1995 Fibromyalgia 1995 Mitral Valve Prolapse 1989 GERD (Gastroesophageal Reflux Disease) 1995 Asthma 1999 TMJ (Dislocation of Temporomandibular Joint) Fibrocystic Disease of Breast 1978 Diverticul Disease Small and Large Intestine, no Perforati or Abscess Skin Cancer back Small Bowel Obstruction 07/20,10/19,02/19 Atrial Tachycardia 07/20 Bursitis 2005 Plantar Fascial Fibromatosis 2007 plantar fascial tear Past Surgical History Procedure [...] ablation 12/16/2004,09/21/2005 Dr. Fuentes, [facility] Current outpatient prescriptions : Fluoxetine HCl (PROZAC) 20 mg Oral Capsule, take 1 capsu le (20 mg) by oral route prn, Disp: , Rfl: Atenolol 25 mg Oral Tablet, take 1 tablet (25 mg) by oral route once daily, Disp: , Rfl: Ezetimibe (ZETIA) 10 mg Oral Tablet, take 1 tablet (10 mg) by oral route once daily, Disp: , Rfl: Fluoxetine HCl (PROZAC) 20 mg Oral Capsule, take 1 capsule (20 mg) by oral route once daily in the morning, Disp: , Rfl: Docusate Sodium (STOOL SOFTENER) [...] VITAMINS-LIPOTROPICS OR, None Entered, Disp: , Rfl: Amino Acids (AMINO ACID) Oral Capsule, 600 mg, Disp: , Rfl: DHEA OR, 5 mg daily, Disp: , Rfl: PROTONIX 40 MG TAB, take 1 tablet (40mg) by oral route once daily, Disp: , Rfl: PEPCID 20 MG TAB, take 1 tablet (20mg) by oral route 2 times per day, Disp: , Rfl: SPIRIVA WITH HANDIHALER 18 MCG & INHALATION CAPS, inhale the contents of one capsule (18mcg ) by inhalation route once daily, Disp: , Rfl: ULTRAM 50 MG TAB, take 1 tablet (50mg) by oral route every 6 hours as needed, Disp: , Rfl: ETHMOZINE 200 MG TAB, take 1 tablet (200mg) by oral route every 8 hours, Disp: , Rfl: MULTIVITAMIN CAP, None Entered, Disp: , Rfl: LEVSIN 0.125 MG TAB, take 1 tablet (0.125mg) by oral route every 4 hours as needed, Disp: 6 0, Rfl: 6 PULMICORT 0.25 MG/2 ML INHL NEBU, , Disp: , Rfl: FAMILY HISTORY: Family History Problem Relation Diabetes Heart PHYSICAL EXAM: VITALS: Visit Vitals Item Reading BP 121/69 Pulse 67 Temp (Src) 98.2 F (36.8 C) (Oral) Gen: Awake, alert, oriented x3 Cardiovascular: RRR Pulm: CTAB Chest: right breast incisional scar clean, dry, intact with 2-3 ecchymoses. Axillary drain in place with sanguinous fluid draining. No erythema, non tender, non fluctuant axiallary incision site. Abd: soft, nontender, nondistended. Midline scar healed. Path: 03/19/07 SOURCE OF SPECIMEN:A [place] lymph node-FS SOURCE OF SPECIMEN:B Right total masectomy Final Pathologic Diagnosis: A: [place] lymph node, biopsy: - Isolated keratin-positive tumor cells in one of one lymph node (see Comment) B: Breast, right, total mastectomy: - Invasive ductal carcinoma, modified Ejheuv-Nsnjs-Nqpcwqnlbv grade I of III (see comment) - Invasive tumor measures 1.4 cm in histologic sections - Tumor extends to within 0.4 cm of anterosuperior margin and 0.1 cm of deep margin - Angiolymphatic invasion is not seen. 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 Comment: The invasive component is present in the upper outer quadrant and associated with extensive ductal carcinoma in situ. The tumor is consistent with mSBR grade I (tubule formation = 2, pleomorphism = 2, mitosis = 1, total score of 5) invasive ductal carcinoma. Invasive tumor extends to within 0.4 cm of anterosuperior margin (slide B1) and within 0.1 cm from the deep margin (slide B18). The sentinel lymph node is stained with CKCAM5.2 and llanos CK per the sentinel lymph node protocol and demonstrates 2 foci of keratin positive tumor cells (approximately 2 and 4 cells respectively), seen in retrospect on H and E stained permanent sections, but not apparent on frozen section slides. From the axillary tail of the mastectomy specimen, one of four lymph nodes is positive for isolated tumor cells (3 groups of >50 cells total), seen on H and E sections, with no focus greater than 0.2 mm. Case reviewed by: Eron Salinas M.D./Resident Julia Albright, Ph.D., M.D./Pathologist :[facility] Pathology Staging Summary Breast Cancer Synopsis Specimens Involved Specimens: A: [place] lymph node-FS B: Right total masectomy Tumor Site: Upper outer quadrant Invasive carcinoma present Invasive greatest dimension: 1.4cm Histologic Type: Invasive ductal carcinoma with an extensive intraductal component Tumor Grade and modified Gee-Alonso score: Grade I: 3-5 points Tubule Formation: Score 2 Nuclear Pleomorphism: Score 2 Mitotic Count: Score 1 Margin(s) negative for invasive carcinoma Closest margin(s) and distance in cm: 0.1 cm from deep; 0.4 cm from superoanterior Angiolymphatic invasion: Absent In situ carcinoma present In situ greatest dimension: 4cm Histologic Type: Ductal carcinoma in situ Nuclear grade in situ: Intermediate In situ carcinoma with comedonecrosis Margin(s) negative for DCIS Close margin(s) and distance in cm: 0.1 cm from deep AJCC Stage (pTNM) Primary Tumor (pT): pT1c Regional Nodes (pN): pN0(i+) Number of regional nodes involved: 2 Number of regional nodes examined: 5 Distant Metastasis (pM): pMX Nipple: no diagnostic abnormality Microcalcifications: Present in DCIS Clinical History: The patient is a 61-year-old female with Sjogren syndrome. Patient presents with right breast cancer. Core biopsy showed DCIS (suspicious for invasive ductal). Planned procedure: right mastectomy with right sentinel lymph node biopsy. Gross Description: Two specimens are received fresh in containers labeled with the patient name (initials CB). A: [place] lymph node, FS: Received fresh is an irregular, soft, yellow-evangelista tissue, measuring 2.2 x 1.3 x 0.7 cm. The specimen is bisected revealing a single lymph node. The entire lymph node is frozen and resubmitted in toto. Remaining tissue not used for frozen section diagnosis is submitted in toto. B: Right total mastectomy: Received is a 550g, (25.0(ML) x 20.0(SI) x 4.5 (AP) cm) mastectomy specimen including axillary tail (5.0 x 4.0 x 2.5 cm). The overlying skin ellipse (20.5 (ML) x 8.0 (SI) cm) contains an unremarkable areola (2.5 x 2.5 cm) and nipple (1.2 x 1.2 x 1.0 cm). The specimen is inked as follows: superoanterior blue, inferoanterior green, deep black. Serial sectioning reveals diffuse fibrocystic changes and an ill-defined, firm, stellate evangelista-white mass in the upper-outer quadrant that measures 4.2 x 2.2 x 1.5 cm. The lesion appears to abut the anterior margin and extend to within 0.3 cm of the superior and 0.4 cm from the deep margin. No other mass lesions are present within the breast. Sectioning and palpation of the axillary tail reveals 11 possible lymph node that are submitted in toto. Channel Director sections are submitted. Cassette Index: A: [place] lymph node, FS: A1, frozen section residue A2, remainder of specimen B: Right total mastectomy: B1, lateral-most section of tumor B2, next medial section of tumor B3-5 tumor B6, hemorrhagic area of stellate possible tumor lateral to nipple line B7, lower outer quadrant B8-9, nipple and areola B10, upper inner quadrant B11, lower inner quadrant B12, additional tumor adjacent to block B3 B13, hemorrhagic area subjacent to nipple B14, two possible lymph nodes B15, four possible lymph nodes B16, four possible lymph nodes B17, one possible lymph node B18-20, additional sections of tumor DVS:lab IHC Results: Immunohistochemical stains are performed on formalin-fixed, paraffin embedded tissue, using an avidin-biotin protocol that includes appropriate positive and negative controls. Block B19 Population: Lesional cells Marker Result Comment Estrogen Receptor Clone 6F11 Positive 80% of invasive and >95% of in situ carcinoma, 3+ intensity Progesterone Receptor Clone 1E2 Positive variable, average 30% of invasive and in situ carcinoma, 2+ intensity Her-2/Maddi CB11, Pathway TM Negative 1+, negative Note: The ER and TX immunohistochemical stains are performed with standard kits from [facility] [facility]. The ER and TX stains are considered positive if there is moderate to strong nuclear staining in at least 10% of the tumor cells. % of invasive tumor cells exhibiting complete HER-2/maddi membrane stainin% Uniformity of HER-2/maddi staining: absent Homogeneous, dark circumferential HER-2/maddi staining: absent Her-2/maddi immunohistochemical staining is performed with the [facility] [facility] PATHWAYTM kit, including monoclonal antibody CB11. This protocol is FDA approved and is performed without technical modification. Positive, negative and equivocal controls showed appropriate reactivity. Tissue specimens processed at [facility] are routinely fixed between 6-48 hours in neutral buffered formalin; core biopsy specimens are fixed longer than 1 hour. Scoring and interpretation are per the [facility] scoring guide as modified by ASCO/CAP 2007 guidelines: score 0-no membrane staining (interpretation: negative); score 1+-- Faint, partial staining of the membrane (interpretation: negative, cases are sent for reflex FISH testing); score 2+-- Weak complete staining of the membrane, greater than 10% of invasive cancer cells (interpretation: equivocal, cases are sent for reflex FISH testing); 3+-- Intense complete staining of the membrane in greater than 30% of invasive cancer cells, also requiring intense, uniform membrane staining, dark circumferential 'chicken wire' staining (interpretation: positive). Inadequate specimens are not interpreted. [facility] participates in proficiency testing for Her-2/maddi immunohistochemistry. Reference: ELMO Banks et al. [place] [employer] [place] [employer] Guideline Recommendation for Human Epidermal Growth Factor Receptor 2 Testing in Breast Cancer. Arch Pathol Lab Med 131:18-43. 2007. (Analyte specific reagents are used in many laboratory tests necessary for standard medical care and generally do not require FDA approval. This test was developed and its performance characteristics determined by [email or web address]. It has not been cleared or approved by the U.S. Food and Drug Administration.) I have reviewed all diagnostic slides and have edited the gross and/or microscopic portion of this report as part of my pathologic assessment and final diagnosis. Frozen Section Diagnosis: [place] lymph node (specimen A): - No tumor seen Confirmed by: Eron Salinas M.D. / Resident and Demond Gerardo M.D., Ph.D. / Pathologist Rendering Diagnostician: Julia Albright Ph.D., M.D. Pathologist Electronically Signed 03/25/2007 PROVISIONAL DIAGNOSIS: [id number] invasive ductal carcinoma of right brease s/p right mastec sander and sentinal lymph node biopsy. PLANNED COURSE OF ACTION: Right Axillary Lymph Node Dissection PARQ: A PARQ session was held. Luís Marion - 10:46 AM Aniket Flynn is here for follow up a Right SLNBx and total mastectomy. She is here for a wound check and to review the pathology report. The patient reports no pro blems following the operation. On examination: The mastectomy and SLN biopsy sites are clean and dry without evidence of hematoma, seroma, or infection. Pathology: SURGICAL PATHOLOGY (no units) Date Value Low High Status 03/19/2007 SOURCE OF SPECIMEN:A [place] lymph node-FS SOURCE OF SPECIMEN:B Right total ma sectomy Final Pathologic Diagnosis: A: [place] lymph node, biopsy: - Isolated kerati n-positive tumor cells in one of one lymph node (see Comment) B: Breast, right, total mast ectomy: - Invasive ductal carcinoma, modified Llzois-Igeqt-Iuhbwmhhbs grade I of III (s ee comment) - Invasive tumor measures 1.4 cm in histologic sections - Tumor extend s to within 0.4 cm of anterosuperior margin and 0.1 cm of deep margin - Angiolymphatic invasion is not seen. - Extensive intermediate grade ducal carcinoma in situ (DCIS) with com edonecrosis, spanning 4 cm size - Ductal carcinoma in situ extends up to within 0.1 cm of de ep margin focally - Isolated tumor cells in one of four lymph nodes (1/4, see comment) - Proliferative fibrocystic change - Nipple with no diagnostic abnormality - AJCC TNM stage: pT1c N0i+ Mx. Comment: The invasive component is present in the upper out er quadrant and associated with extensive ductal carcinoma in situ. The tumor is consistent with mSBR grade I (tubule formation = 2, pleomorphism = 2, mitosis = 1, total score of 5) i nvasive ductal carcinoma. Invasive tumor extends to within 0.4 cm of anterosuperior margin (slide B1) and within 0.1 cm from the deep margin (slide B18). The sentinel lymph node is st ained with CKCAM5.2 and llanos CK per the sentinel lymph node protocol and demonstrates 2 foci of keratin positive tumor cells (approximately 2 and 4 cells respectively), seen in retrospe ct on H and E stained permanent sections, but not apparent on frozen section slides. From t he axillary tail of the mastectomy specimen, one of four lymph nodes is positive for isolate d tumor cells (3 groups of >50 cells total), seen on H and E sections, with no focus greater than 0.2 mm. Case reviewed by: Eron Salinas M.D./Resident Julia Albright, Ph.D., M.D. /Pathologist :[facility] Pathology Staging Summary Breast Cancer Synopsis Specimens Invo lved Specimens: A: [place] lymph node-FS B: Right total masectomy Tumor Site: Upper outer quadrant Invasive carcinoma present Invasive greatest dimension: 1.4cm Histologic Ty pe: Invasive ductal carcinoma with an extensive intraductal component Tumor Grade and mod ified Gee-Alonso score: Grade I: 3-5 points Tubule Formation: Score 2 Nuclear Pleom orphism: Score 2 Mitotic Count: Score 1 Margin(s) negative for invasive carcinoma Closest margin(s) and distance in cm: 0.1 cm from deep; 0.4 cm from superoanterior Angiolymphatic invasion: Absent In situ carcinoma present In situ greatest dimension: 4cm Histologic Typ e: Ductal carcinoma in situ Nuclear grade in situ: Intermediate In situ carcinoma with co medonecrosis Margin(s) negative for DCIS Close margin(s) and distance in cm: 0.1 cm from deep AJCC Stage (pTNM) Primary Tumor (pT): pT1c Regional Nodes (pN): pN0(i+) Number of regional nodes involved: 2 Number of regional nodes examined: 5 Distant Metastasis (pM): pMX Nipple: no diagnostic abnormality Microcalcifications: Present in DCIS Clinical Hist ory: The patient is a 61-year-old female with Sjogren syndrome. Patient presents with right breast cancer. Core biopsy showed DCIS (suspicious for invasive ductal). Planned procedur e: right mastectomy with right sentinel lymph node biopsy. Gross Description: Two specimens are received fresh in containers labeled with the patient name (initials CB). A: [place] lymph node, FS: Received fresh is an irregular, soft, yellow-evangelista tissue, measuring 2.2 x 1. 3 x 0.7 cm. The specimen is bisected revealing a single lymph node. The entire lymph node i s frozen and resubmitted in toto. Remaining tissue not used for frozen section diagnosis is submitted in toto. B: Right total mastectomy: Received is a 550g, (25.0(ML) x 20.0(SI) x 4.5 (AP) cm) mastectomy specimen including axillary tail (5.0 x 4.0 x 2.5 cm). The overlyin g skin ellipse (20.5 (ML) x 8.0 (SI) cm) contains an unremarkable areola (2.5 x 2.5 cm) and nipple (1.2 x 1.2 x 1.0 cm). The specimen is inked as follows: superoanterior blue, inferoa nterior green, deep black. Serial sectioning reveals diffuse fibrocystic changes and an ill -defined, firm, stellate evangelista-white mass in the upper-outer quadrant that measures 4.2 x 2.2 x 1.5 cm. The lesion appears to abut the anterior margin and extend to within 0.3 cm of the superior and 0.4 cm from the deep margin. No other mass lesions are present within the jillian st. Sectioning and palpation of the axillary tail reveals 11 possible lymph node that are s ubmitted in toto. Channel Director sections are submitted. Cassette Index: A: [place] lymp h node, FS: A1, frozen section residue A2, remainder of specimen B: Right total mastectomy: B1, lateral-most section of tumor B2, next medial section of tumor B3-5 tumor B6, hemorrhag ic area of stellate possible tumor lateral to nipple line B7, lower outer quadrant B8-9, nip ple and areola B10, upper inner quadrant B11, lower inner quadrant B12, additional tumor adj acent to block B3 B13, hemorrhagic area subjacent to nipple B14, two possible lymph nodes B1 5, four possible lymph nodes B16, four possible lymph nodes B17, one possible lymph node B18 -20, additional sections of tumor DVS:lab IHC Results: Immunohistochemical stains are perfo rmed on formalin-fixed, paraffin embedded tissue, using an avidin-biotin protocol that inclu mary appropriate positive and negative controls. Block B19 Population: Lesional cells Marke r Result Comment Estrogen Receptor Clone 6F11 Positive 80% of invasive and >95% of i n situ carcinoma, 3+ intensity Progesterone Receptor Clone 1E2 Positive variable, averag e 30% of invasive and in situ carcinoma, 2+ intensity Her-2/Maddi CB11, Pathway TM Negative 1+, negative Note: The ER and TX immunohistochemical stains are performed with standard kits from [facility]. The ER and TX stains are considered positive if there is moderate to stro ng nuclear staining in at least 10% of the tumor cells. % of invasive tumor cells exhibitin g complete HER-2/maddi membrane stainin% Uniformity of HER-2/maddi staining: absent Homogen eous, dark circumferential HER-2/maddi staining: absent Her-2/maddi immunohistochemical stainin g is performed with the [facility] [facility] PATHWAYTM kit, including monoclonal antibody CB11. This pro tocol is FDA approved and is performed without technical modification. Positive, negative a nd equivocal controls showed appropriate reactivity. Tissue specimens processed at [facility] are routinely fixed between 6-48 hours in neutral buffered formalin; core biopsy specimens are fixed longer than 1 hour. Scoring and interpretation are per the [facility] [facility] scoring guide as m odified by ASCO/CAP 2007 guidelines: score 0-no membrane staining (interpretation: negative) ; score 1+-- Faint, partial staining of the membrane (interpretation: negative, cases are se nt for reflex FISH testing); score 2+-- Weak complete staining of the membrane, greater than 10% of invasive cancer cells (interpretation: equivocal, cases are sent for reflex FISH federica ting); 3+-- Intense complete staining of the membrane in greater than 30% of invasive cancer cells, also requiring intense, uniform membrane staining, dark circumferential 'chicken wir e' staining (interpretation: positive). Inadequate specimens are not interpreted. [facility] part icipates in proficiency testing for Her-2/maddi immunohistochemistry. Reference: ELMO Banks et al. [place] [employer] [place] [employer] Guideline Recom mendation for Human Epidermal Growth Factor Receptor 2 Testing in Breast Cancer. Arch Pathol Lab Med 131:18-43. 2007. (Analyte specific reagents are used in many laboratory tests ne cessary for standard medical care and generally do not require FDA approval. This test was d eveloped and its performance characteristics determined by [email or web address]. It has not bee n cleared or approved by the U.S. Food and Drug Administration.) I have reviewed all diagno stic slides and have edited the gross and/or microscopic portion of this report as part of m y pathologic assessment and final diagnosis. Frozen Section Diagnosis: [place] lymph node (specimen A): - No tumor seen Confirmed by: Eron Salinas M.D. / Resident and Kori Gerardo M.D., Ph.D. / Pathologist Rendering Diagnostician: Julia Albright Ph.D., M.D. Pathologist Electronically Signed 03/25/2007 Final Value: SOURCE OF SPECIMEN:A [place] lymph node-FS SOURCE OF SPECIMEN:B Right total masectomy Final Pathologic Diagnosis: A: [place] lymph node, biopsy: - Isolated keratin-positive tumor cells in one of one lymph node (see Comment) B: Breast, right, total mastectomy: - Invasive ductal carcinoma, modified Otvuti-Xgdpo-Pdemhghgpe grade I of III (see comment) - Invasive tumor measures 1.4 cm in histologic sections - Tumor extends to within 0.4 cm of anterosuperior margin and 0.1 cm of deep margin - Angiolymphatic invasion is not seen. 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 Comment: The invasive component is present in the upper outer quadrant and associated with extensive ductal carcinoma in situ. The tumor is consistent with mSBR grade I (tubule formation = 2, pleomorphism = 2, mitosis = 1, total score of 5) invasive ductal carcinoma. Invasive tumor extends to within 0.4 cm of anterosuperior margin (slide B1) and within 0.1 cm from the deep margin (slide B18). The sentinel lymph node is stained with CKCAM5.2 and llanos CK per the sentinel lymph node protocol and demonstrates 2 foci of keratin positive tumor cells (approximately 2 and 4 cells respectively), seen in retrospect on H and E stained permanent sections, but not apparent on frozen section slides. From the axillary tail of the mastectomy specimen, one of four lymph nodes is positive for isolated tumor cells (3 groups of >50 cells total), seen on H and E sections, with no focus greater than 0.2 mm. Case reviewed by: Eron Salinas M.D./Resident Julia Albright, Ph.D., M.D./Pathologist :[facility] Pathology Staging Summary Breast Cancer Synopsis Specimens Involved Specimens: A: [place] lymph node-FS B: Right total masectomy Tumor Site: Upper outer quadrant Invasive carcinoma present Invasive greatest dimension: 1.4cm Histologic Type: Invasive ductal carcinoma with an extensive intraductal component Tumor Grade and modified Gee-Alonso score: Grade I: 3-5 points Tubule Formation: Score 2 Nuclear Pleomorphism: Score 2 Mitotic Count: Score 1 Margin(s) negative for invasive carcinoma Closest margin(s) and distance in cm: 0.1 cm from deep; 0.4 cm from superoanterior Angiolymphatic invasion: Absent In situ carcinoma present In situ greatest dimension: 4cm Histologic Type: Ductal carcinoma in situ Nuclear grade in situ: Intermediate In situ carcinoma with comedonecrosis Margin(s) negative for DCIS Close margin(s) and distance in cm: 0.1 cm from deep AJCC Stage (pTNM) Primary Tumor (pT): pT1c Regional Nodes (pN): pN0(i+) Number of regional nodes involved: 2 Number of regional nodes examined: 5 Distant Metastasis (pM): pMX Nipple: no diagnostic abnormality Microcalcifications: Present in DCIS Clinical History: The patient is a 61-year-old female with Sjogren syndrome. Patient presents with right breast cancer. Core biopsy showed DCIS (suspicious for invasive ductal). Planned procedure: right mastectomy with right sentinel lymph node biopsy. Gross Description: Two specimens are received fresh in containers labeled with the patient name (initials CB). A: [place] lymph node, FS: Received fresh is an irregular, soft, yellow-evangelista tissue, measuring 2.2 x 1.3 x 0.7 cm. The specimen is bisected revealing a single lymph node. The entire lymph node is frozen and resubmitted in toto. Remaining tissue not used for frozen section diagnosis is submitted in toto. B: Right total mastectomy: Received is a 550g, (25.0(ML) x 20.0(SI) x 4.5 (AP) cm) mastectomy specimen including axillary tail (5.0 x 4.0 x 2.5 cm). The overlying skin ellipse (20.5 (ML) x 8.0 (SI) cm) contains an unremarkable areola (2.5 x 2.5 cm) and nipple (1.2 x 1.2 x 1.0 cm). The specimen is inked as follows: superoanterior blue, inferoanterior green, deep black. Serial sectioning reveals diffuse fibrocystic changes and an ill-defined, firm, stellate evangelista-white mass in the upper-outer quadrant that measures 4.2 x 2.2 x 1.5 cm. The lesion appears to abut the anterior margin and extend to within 0.3 cm of the superior and 0.4 cm from the deep margin. No other mass lesions are present within the breast. Sectioning and palpation of the axillary tail reveals 11 possible lymph node that are submitted in toto. Channel Director sections are submitted. Cassette Index: A: [place] lymph node, FS: A1, frozen section residue A2, remainder of specimen B: Right total mastectomy: B1, lateral-most section of tumor B2, next medial section of tumor B3-5 tumor B6, hemorrhagic area of stellate possible tumor lateral to nipple line B7, lower outer quadrant B8-9, nipple and areola B10, upper inner quadrant B11, lower inner quadrant B12, additional tumor adjacent to block B3 B13, hemorrhagic area subjacent to nipple B14, two possible lymph nodes B15, four possible lymph nodes B16, four possible lymph nodes B17, one possible lymph node B18-20, additional sections of tumor DVS:lab IHC Results: Immunohistochemical stains are performed on formalin-fixed, paraffin embedded tissue, using an avidin-biotin protocol that includes appropriate positive and negative controls. Block B19 Population: Lesional cells Marker Result Comment Estrogen Receptor Clone 6F11 Positive 80% of invasive and >95% of in situ carcinoma, 3+ intensity Progesterone Receptor Clone 1E2 Positive variable, average 30% of invasive and in situ carcinoma, 2+ intensity Her-2/Maddi CB11, Pathway TM Negative 1+, negative Note: The ER and TX immunohistochemical stains are performed with standard kits from [facility]. The ER and TX stains are considered positive if there is moderate to strong nuclear staining in at least 10% of the tumor cells. % of invasive tumor cells exhibiting complete HER-2/maddi membrane stainin% Uniformity of HER-2/maddi staining: absent Homogeneous, dark circumferential HER-2/maddi staining: absent Her-2/maddi immunohistochemical staining is performed with the [place] PATHWAYTM kit, including monoclonal antibody CB11. This protocol is FDA approved and is performed without technical modification. Positive, negative and equivocal controls showed appropriate reactivity. Tissue specimens processed at [facility] are routinely fixed between 6-48 hours in neutral buffered formalin; core biopsy specimens are fixed longer than 1 hour. Scoring and interpretation are per the [place] scoring guide as modified by ASCO/CAP 2007 guidelines: score 0-no membrane staining (interpretation: negative); score 1+-- Faint, partial staining of the membrane (interpretation: negative, cases are sent for reflex FISH testing); score 2+-- Weak complete staining of the membrane, greater than 10% of invasive cancer cells (interpretation: equivocal, cases are sent for reflex FISH testing); 3+-- Intense complete staining of the membrane in greater than 30% of invasive cancer cells, also requiring intense, uniform membrane staining, dark circumferential 'chicken wire' staining (interpretation: positive). Inadequate specimens are not interpreted. [facility] participates in proficiency testing for Her-2/maddi immunohistochemistry. Reference: ELMO Banks et al. [place] [employer] [place] [employer] Guideline Recommendation for Human Epidermal Growth Factor Receptor 2 Testing in Breast Cancer. Arch Pathol Lab Med 131:18-43. 2006. (Analyte specific reagents are used in many laboratory tests necessary for standard medical care and generally do not require FDA approval. This test was developed and its performance characteristics determined by [email or web address]. It has not been cleared or approved by the U.S. Food and Drug Administration.) I have reviewed all diagnostic slides and have edited the gross and/or microscopic portion of this report as part of my pathologic assessment and final diagnosis. Frozen Section Diagnosis: [place] lymph node (specimen A): - No tumor seen Confirmed by: Eron Salinas M.D. / Resident and Demond Gerardo M.D., Ph.D. / Pathologist Rendering Diagnostician: Julia Albright Ph.D., M.D. Pathologist Electronically Signed 03/25/2007 Assessment: Invasive ductal carcinoma of the right breast with sentinel node positive by MIGUEL Bustamante. I have calculated the odds that she would have additional positive nodes using the [facility] [place] breast nomogram. The odds that she has additional positive nodes are calculated as 8%. Her case was discussed at Breast Conference this morning and the recommendation of the Board was to complete her axillary dissection at least for local cont rol and also because the results might change her therapy. Plan: Completion axillary dissection will be scheduled for our next available date. ELISA guevara s held and consent form signed. I'll schedule her for my first day back from my trip, i.e. O ct 5. I offered her treatment by another surgeon and she says she would prefer to wait unti l I get back. [facility] MD welt sole layer Division of Surgical Oncology [id number] [place], [place] [address] documented in this encoun ter Plan of Treatment Not on filedocumented as of this encounter Visit Diagnoses + + | Diagnosis | + + | Carcinoma in situ of breast | + + | Breast cancer (HCC) Malignant neoplasm of breast (female), unspecified site | + + documented in this encounter"
--- OUTSIDE RECORDS SUMMARY | ~2020-05-04 | XMS | Encounter Summary ---
Demographics + + + | Address | [address] | | | [place] [address] | + + + | Home Phone [...] + | Gene Gee | ECON | [address] | | | | | [place], | | | | | [place] [address] | | + + + + + Care Team Providers + +------+ + | Care Manager Military Name | Role | Phone | + +------+ + | Antony Ribera MD | PCP | | + +------+ + Reason for Visit + +--------+ + | Reason | Onset | Comments | | | Date | | + +--------+ + | Medication Question | 09/12/ | Xarelto | | | 2016 | | + +--------+ + Encounter Details +--------+ + + + + | Date | Type | Department | Care Team | Description | +--------+ + + + + | 09/12/ | MyChart | Cardiology | Elijah Whalen, | RE: Xarelto | | 2017 | Encounter | Arrhythmia at [facility] | MD [address] | | | | | [address] | [address] | | | | | [facility] | [place], [place] | | | | | and Healing, | [address] | | | | | [place] [address] [facility] | [phone] | | | | | Floor [place], [place] | | | | | | [address] | | | | | | [phone] | | | +--------+ + + + [...] Telephone Encounter - Virginia Flanagan RN - 09/12/2016 11:24 AM PSTReturned call to dillon ent. Per patient, Dr. Whalen and her had a conversation last night on the phone. They dis cussed her monitor results. Per patient, Dr. Whalen recommended she begin taking Xarelto. She thought about it over night and has agreed to do such. I talked to Dr. Whalen in clinic. He gave me a verbal order to order the Xarelto - which I have done. Patient will continue to monitor her atrial fibrillation symptoms and contact our office if she has any issues. elephone Sheryl Bonner - 09/12/2016 10:46 AM PSTPt called Virginia back. Please call pt on her cell phone, [id number] signed by Sheryl Ruffin at 08/17 10:47 AM PSTTelephone Encounter - Virginia Flanagan RN - 09/12/2016 10:09 AM PSTCal led patient regarding mychart message re: Xarelto. I do not see mention of this in patients chart. Called to clarify. LVM to call back. documented in this encounter Plan of Treatment Not on filedocumented as of this encounter Visit Diagnoses Not on filedocumented in this encounter"
--- OUTSIDE RECORDS SUMMARY | ~2020-05-04 | XMS | Encounter Summary ---
Demographics + + + | Address | [address] | | | [place] [address] | + + + | Home Phone [...] + | Gene Gee | ECON | [address] | | | | | [place], | | | | | [place] [address] | | + + + + + Care Team Providers + +------+ + | Care Level Vial Curvature Gauger Name | Role | Phone | + +------+ + | Antony Ribera MD | PCP | | + +------+ + Encounter Details +--------+ + + + + | Date | Type | Department | Care Team | Description | +--------+ + + + + | 12/19/ | Documentati | Pulmonary & | Thalia Barnard, | | | 2013 | on | Critical Care | [facility] | | | | | Medicine at | [facility] | | | | | [facility] | [address] | | | | | [address] | [address] [place], | | | | | Loop Physician's | [place] [address] | | | | | [place], 3rd Floor | [phone] | | | | | [place] | | | | | | [address] | | | | | | [phone] | | | +--------+ + + + [...] Telephone Encounter - Thalia Barnard Md - 12/20/2013 6:06 PM PDTRequested earlier celestino in pulmonary for mass on CXR. Reviewed CXR, possible shadow confluence. Has hx of pulmonary no dules. Advised local noncontrast chest CT for us to review here, can then determine best nex t steps. documented in this encounter Plan of Treatment Not on filedocumented as of this encounter Visit Diagnoses + + | Diagnosis | + + | Indeterminate pulmonary nodules - Primary Other nonspecific abnormal finding of lung | | field | + + documented in this encounter"
--- OUTSIDE RECORDS SUMMARY | ~2020-05-04 | XMS | Encounter Summary ---
Demographics + + + | Address | [address] | | | [place] [address] | + + + | Home Phone [...] + | Gene Gee | ECON | [address] | | | | | [place], | | | | | [place] [address] | | + + + + + Care Team Providers + +------+ + | Care Market Garden Worker Name | Role | Phone | + +------+ + | Alec Hill MD | PCP | | + +------+ + Encounter Details +--------+ + + + + | Date | Type | Department | Care Team | Description | +--------+ + + + + | 12/16/ | Hospital | Women's Imaging | [facility], | | | 2019 | Encounter | Center [address] | [address] | | | | | Ave Center for | [place], [place] | | | | | Health and Healing, | [address] | | | | | Building [address] | [phone] | | | | | [place], [place] | | | | | | [address] | | | | | | [phone] | | | +--------+ + + + [...] +---------+ + + | budesonide | Inhale 2 puffs by | 3 | 6 | 05/15/20 | | | (PULMICORT | mouth two times | Inhaler | | 19 | | | FLEXHALER) 180 | daily. Indications: | | | | | | mcg/actuation | Controller | | | | | | inhalation aerosol | Medication for | | | | | | powdr breath | Asthma | | | | | | activatedIndications | | | | | | | : maintenance | | | | | | | therapy for asthma | | | | | | + [...] | | 0 | | | | #[id number] | daily. | | | | | | 300-250 million | | | | | | | cell-mg oral capsule | | | | | | + + + +---------+ + + | levalbuterol 45 | Inhale 1-2 puffs by | 1 | 6 | 11/28/19 | | | mcg/actuation | mouth every six | Inhaler | | 19 | | | inhalation HFA | hours as needed. | | | | | | aerosol | Indications: | | | | | | inhalerIndications: | bronchospasm | | | | | | bronchospasm | prevention | | | | | | prevention | | | | | | + [...] + + + +---------+ + + | SPIRIVA RESPIMAT | Inhale 1 puff once | 12 g | 3 | 05/15/20 | | | 2.5 mcg/actuation | daily. | | | 19 | | | inhalation mist | | | | | | + [...] MA CRISTAL SCREEN LEFT | Routin | 12/16/2018 | Encounter for | Results for this | | W/CAD | e | 10:10 AM | screening mammogram | procedure are in the | | | | PDT | for malignant | results section. | | | | | neoplasm of breast | | | | | | Malignant neoplasm | | | | | | of right female | | | | | | breast, unspecified | | | | | | estrogen receptor | | | | | | status, unspecified | | | | | | site of [...] obtained on a dedicated | | | Hologic System and interpreted with R2 CAD technology. [...] Diagnosis | + + | Encounter for screening mammogram for malignant neoplasm of breast Other screening | | mammogram | + + | Malignant neoplasm of right female breast, unspecified estrogen receptor status, | | unspecified site of breast (HCC) | + + documented in this encounter"
--- OUTSIDE RECORDS SUMMARY | ~2020-05-04 | XMS | Encounter Summary ---
Demographics + + + | Address | [address] | | | [place] [address] | + + + | Home Phone [...] + | Gene Sahil | ECON | [address] | | | | | [place], | | | | | [place] [address] | | + + + + + Care Team Providers + +------+ + | Care Accident Examiner Name | Role | Phone | + +------+ + PCP | Unavailable | + +------+ + Encounter Details +--------+ + + + + | Date | Type | Department | Care Team | Description | +--------+ + + + + | 09/22/ | Procedure - | | Report, Cardiac | Cardiac Cath | | 2006 | | | Cath | | | [...] as of this encounter Progress Notes Interface, Brick Or Block Maker In - 10/04/2005 2:04 AM PST [id number] 09/22/2005 [id number] SAHIL Holman Patient Name: Adriana BAXTER. Patient Data: Height 168 cm Weight 65.5 kg BSA 1.74 m2 Date of Procedure: September 22, 2005 : 1945 Physician: Gary Fuentes M.D. Professor, Medicine Division of Cardiology Evangelist Leonardo M.D. Fellow, Clinical Cardiac Electrophysiology Referring Physician: Gary Fuentes M.D. PROCEDURE(S) PERFORMED: 1. Electrophysiology study with induction. 2. Coronary sinus pacing and recording. 3. Pacing study with drug infusion. 4. Three-dimensional mapping using the Ensite Basket Array system. INDICATIONS: A 59-year-old female with a history of an atrial tachycardia who presents with recurrent symptoms after undergoing an electrophysiology study in December 2004 and found to have a right stacey atrial tachycardia that was subsequently ablated and presents for evaluation of recurrence. FLUOROSCOPY TIME: 8.50 minutes FLUOROSCOPY DAP: 5.11 cGy cm2 PROCEDURE NARRATIVE: Following oral and written informed consent, the patient was brought to the Cardiac Catheterization Laboratory in the postabsorptive, nonsedated state. She was prepped and draped in the usual sterile fashion. An automated blood pressure cuff and pulse oximeter were placed for continuous monitoring. Midazolam and fentanyl were used for moderate sedation. Lidocaine 1% was used for local anesthesia. Two 10-cm [place] sheaths, an 8 Fr and a 7 Fr, were placed in the right femoral vein. A 7 Fr 10-cm [place] sheaths was placed in the left femoral vein. Following this, a 6 Fr Neyda electrophysiology catheter was placed in the right ventricle, a 6 Fr decapolar deflectable catheter was placed in the coronary sinus, and a 6 Fr hexapolar deflectable catheter was placed in the His position. ELECTROPHYSIOLOGY STUDY: The patient presented in a baseline rhythm that was sinus with a cycle length of 656 msec. Baseline AH and HV intervals were normal at 56 and 41 msec, respectively. With right ventricular pacing, there was no evidence of ventriculoatrial conduction. With right atrial pacing, there was evidence of atrioventricular Wenckebach with the effective refractory period of the atrioventricular node being less than 240 msec. With atrial double extrastimuli, atrioventricular carter echo beats could be produced but no inducible atrioventricular carter reentrant tachycardia. Isuprel was started and titrated to effect. Attempts at induction with rapid atrial pacing and single and double atrial extrastimuli again failed to induce the tachycardia. However, on isuprel, there was evidence of a spontaneous atrial tachycardia with a cycle length of 220 msec that earliest atrial activation appeared in the coronary sinus os electrodes. This tachycardia was nonsustained but occurred spontaneously twice such that the decision was to proceed on to three-dimensional mapping. THREE-DIMENSIONAL MAPPING: The 7 Fr left femoral sheath was exchanged out for a 9 Fr 10-cm [place] sheath. The Ensite balloon was prepped in the usual fashion. Heparin 5,000 units was given and the Ensite balloon was then guided over a wire into the right atrium and deployed. Following this, using the hexapolar deflectable catheter, a right atrial geometry was made. A sinus node beat was mapped and marked on the right atrial map. The patient was restarted on isuprel and titrated up to 3 mcg without evidence of tachycardia. Several runs, both on and off isuprel, failed to induce tachycardia, including episodes of rapid atrial pacing during these maneuvers and atrial extrastimuli. The patient was then given 0.6 mg of atropine, again with failure of inducing atrial tachycardia. There were a few premature atrial contractions that, when mapped on the Ensite system, appeared to arise from the left atrium with breakout around the posterior septum. The patient was given 5 mg of Lopressor after the atropine. With this maneuver, a rapid atrial tachycardia was induced. Mapping this on the Ensite system showed a breakout point at the mid septal wall of the right atrium. Evaluation of the unipolar electrograms showed initial R waves at the breakout point, again felt consistent with a left atrial origin. Unipolar evaluation through the coronary sinus catheter during a nonsustained episode again showed R waves at the coronary sinus such it was felt that this was not a focal tachycardia originating from within the coronary sinus. Given evidence of a left atrial tachycardia, with the patient fully heparinized for the Basket Array, the decision was not to proceed on for further left atrial mapping at this time such that the Ensite catheter was removed from the patient as well as other catheters, and the procedure was ended. DISPOSITION: All sheaths were removed, and manual pressure was held to maintain hemostasis. The patient was escorted back to the interventional recovery unit for further observation. COMPLICATIONS: None. FINAL RESULTS: Nonsustained left atrial tachycardia. ATTENDING SURGEON'S ATTESTATION: Pursuant to Federal Medicare Requirements, I certify that Gary Fuentes M.D. was present for the witt elements of the procedure and participated directly in the generation of this report. Evangelist Leonardo M.D. Fellow, Clinical Cardiac Electrophysiology Gary Fuentes M.D. Professor, Medicine Division of Cardiology TAYLER/randy Job No. [id number] Electronically signed by Gary Fuentes 10-03-2005 12:32:04 PM documented i n this encounter Plan of Treatment Not on filedocumented as of this encounter Procedures + +--------+ + + + | Procedure Name | Priori | Date/Time | Associated Diagnosis | Comments | | | ty | | | | + +--------+ + + + | CARDIAC CATH | | 09/22/2005 | | | + +--------+ + + + documented in this encounter Visit Diagnoses Not on filedocumented in this encounter"
--- OUTSIDE RECORDS SUMMARY | ~2020-05-04 | XMS | Encounter Summary ---
Demographics + + + | Address | [address] | | | [place] [address] | + + + | Home Phone [...] + | Gene Gee | ECON | [address] | | | | | [place], | | | | | [place] [address] | | + + + + + Care Team Providers + +------+ + | Care Senior Product Marketing Manager Name | Role | Phone | + +------+ + | Antony Ribera MD | PCP | | + +------+ + Encounter Details +--------+ + + + + | Date | Type | Department | Care Team | Description | +--------+ + + + + | 08/17/ | MyChart | Cardiology | Gary Fuentes MD | RE: Still some | | 2015 | Encounter | Arrhythmia at [facility] | [address] | arrhythmia at | | | | [address] | [address] [facility], | certain times | | | | [place] for [facility] | [place] [address] | | | | | and Healing, | [phone] | | | | | | | | | | | Floor [place], [place] | | | | | | [address] | | | | | | [phone] | | | +--------+ + + + [...]
--- OUTSIDE RECORDS SUMMARY | ~2020-05-04 | XMS | Encounter Summary ---
Demographics + + + | Address | [address] | | | [place] [address] | + + + | Home Phone [...] + | Gene Gee | ECON | [address] | | | | | [place], | | | | | [place] [address] | | + + + + + Care Team Providers + +------+ + | Care Java Websphere Developer Name | Role | Phone | [...] 2018 | | Arrhythmia at [facility] | [address] | | | | | [address] | [address] | | | | | [facility] | [place], [place] | | | | | and Healing, | [address] | | | | | [facility] | [phone] | | | | | Floor [place], [place] | | | | | | [address] | | | | | | [phone] | | | +--------+ + + + [...]
--- OUTSIDE RECORDS SUMMARY | ~2020-05-04 | XMS | Encounter Summary ---
Demographics + + + | Address | [address] | | | [place] [address] | + + + | Home Phone | | + + + | Preferred Language | Unknown | + + + | Marital Status | | + + + | Mormon Affiliation | CHR | + + + | Race | White | + + + | Ethnic Group | Not or | + + + Author + + + | Author | [facility] | + + + | Organization | [facility] | + + + | Address | Unknown | + + + | Phone | Unavailable | + + + Support + + + + + | Name | Relationship | Address | Phone | + + + + + | Gene Gee | ECON | [address] | | | | | [place], | | | | | [place] [address] | | + + + + + Care Team Providers + +------+ + | Care Hydraulics Teacher Name | Role | Phone | + +------+ + | Antony iRbera MD | PCP | | + +------+ + Encounter Details +--------+ + + + + | Date | Type | Department | Care Team | Description | +--------+ + + + + | 06/30/ | Hospital | Women's Imaging | | | | 2009 | Encounter | Center at [address] | | | | | | [facility] [address] | | | | | | [place], [address] [place] [address] | | | | | | [place], [place] | | | | | | [address] | | | | | | [phone] | | | +--------+ + + + [...] documented as of this encounter Procedure Notes Gisele Strong - 07/05/2010 7:26 AM PSTAssociated Order(s): ORDERS OTHER; ORDERS OTHER documented in this [facility] nter Miscellaneous Notes Scan - Ligia Faculty - 09/27/2010 11:54 AM PDT documented in this [facility] Plan of Treatment Not on filedocumented as of this encounter Procedures + +--------+ + + + | Procedure Name | Priori | Date/Time | Associated Diagnosis | Comments | | | ty | | | | + +--------+ + + + | ORDERS OTHER | | 06/30/2010 | | Results for this | | | | 11:59 PM | | procedure are in the | | | | PST | | results section. | + +--------+ + + + documented in this encounter Results ORDERS OTHER (06/30/2010 11:59 PM PST) + + + | Narrative | Performed At | + + + | | | + + + + + | Procedure Note | + + | Gisele Strong - 07/05/2010 7:26 AM PST | | | + + documented in this encounter Visit Diagnoses + + | Diagnosis | + + | Breast Cancer Malignant neoplasm of breast (female), unspecified site | + + documented in this encounter"
--- OUTSIDE RECORDS SUMMARY | ~2020-05-04 | XMS | Encounter Summary ---
Demographics + + + | Address | [address] | | | [place] [address] | + + + | Home Phone [...] + | Gene Gee | ECON | [address] | | | | | [place], | | | | | [place] [address] | | + + + + + Care Team Providers + +------+ + | Care Front Desk Supervisor Name | Role | Phone | + +------+ + | Antony Ribera MD | PCP | | + +------+ + Reason for Visit + +--------+ + | Reason | Onset | Comments | | | Date | | + +--------+ + | Refill Request | 09/09/ | | | | 2008 | | + +--------+ + Encounter Details +--------+--------+ + + + | Date | Type | Department | Care Team | Description | +--------+--------+ + + + | 09/09/ | Refill | Cardiology General | Monique Middleton, | Refill Request | | 2007 | | at [facility] [address] | [address] | | | | | [facility] | | | | | | Health and Healing, | | | | | | [facility] | | | | | | Floor [place], [place] | | | | | | [address] | | | | | | [phone] | | | +--------+--------+ + + + [...]
--- OUTSIDE RECORDS SUMMARY | ~2020-05-04 | XMS | Encounter Summary ---
Demographics + + + | Address | [address] | | | [place] [address] | + + + | Home Phone [...] + | Gene Gee | ECON | [address] | | | | | [place], | | | | | [place] [address] | | + + + + + Care Team Providers + +------+ + | Care Survey Operations Director Name | Role | Phone | + +------+ + | Alec Hill MD | PCP | | + +------+ + Encounter Details +--------+ + + + + | Date | Type | Department | Care Team | Description | +--------+ + + + + | 01/02/ | Pharmacy | [facility] | | | | 2016 | Visit | [facility] | | | | | | [address] | | | | | | Mailcode: [place] | | | | | | [facility] and | | | | | | Healing, [address] | | | | | | [place], [place] | | | | | | [address] | | | | | | [phone] | | | +--------+ + + + [...]
--- OUTSIDE RECORDS SUMMARY | ~2020-05-04 | XMS | Encounter Summary ---
Demographics + + + | Address | [address] | | | [place] [address] | + + + | Home Phone [...] + | Gene Gee | ECON | [address] | | | | | [place], | | | | | [place] [address] | | + + + + + Care Team Providers + +------+ + | Care Supervisor Cabinetmaker Name | Role | Phone | + [...] + + | 01/27/ | Office | Bone Density at | | Disorder of bone and | | 2009 | Visit | [facility] [address] | | cartilage, | | | | Center for [facility] | | unspecified (Primary | | | | and Healing, | | Dx) | | | | Building [address] | | | | | | [place], [place] | | | | | | [address] | | | | | | [phone] | | | +--------+---------+ + + + [...] of this encounter Progress Kendra Guerrero - 01/27/2010 10:42 AM PDTBone density scans performed. Please see the Inter pretation Report, located in chart Review, under the Media tab. documented [facility] this [facility] Procedure Gisele Cohen - 01/27/2010 12:00 AM PDTAssociated Order(s): BONE DENSITOMETRY documented in this encou [facility] Plan of Treatment + +---------+--------+ + + | Name | Type | Priori | Associated Diagnoses | Order Schedule | | | | ty | | | + +---------+--------+ + + | ID DXA BONE DENSITY, | Imaging | Routin | Disorder of bone | Ordered: 01/27/2010 | | AXIAL | | e | and cartilage, | | | | | | unspecified | | + +---------+--------+ + + documented as of this encounter Procedures + +--------+ + + + | Procedure Name | Priori | Date/Time | Associated Diagnosis | Comments | | | ty | | | | + +--------+ + + + | BONE DENSITOMETRY | | 01/27/2010 | | Results for this | | | | 12:00 AM | | procedure are in the | | | | PDT | | results section. | + +--------+ + + + documented in this encounter Results BONE DENSITOMETRY (01/27/2010 12:00 AM PDT) + + + | Narrative | Performed At | + + + | | | + + + + + | Procedure Note | + + | Ligia, Faculty - 01/27/2010 12:00 AM PDT | | | + + documented in this encounter Visit Diagnoses + + | Diagnosis | + + | Disorder of bone and cartilage, unspecified - Primary | + + documented in this encounter"
--- OUTSIDE RECORDS SUMMARY | ~2020-05-04 | XMS | Encounter Summary ---
Demographics + + + | Address | [address] | | | [place] [address] | + + + | Home Phone [...] + | Gene Gee | ECON | [address] | | | | | [place], | | | | | [place] [address] | | + + + + + Care Team Providers + +------+ + | Care Design Engineering Manager Name | Role | Phone | + +------+ + | Antony Ribera MD | PCP | | + +------+ + Reason for Visit + +--------+ + | Reason | Onset | Comments | | | Date | | + +--------+ + | Refill Request | 09/21/ | | | | 2008 | | + +--------+ + Encounter Details +--------+--------+ + + + | Date | Type | Department | Care Team | Description | +--------+--------+ + + + | 09/21/ | Refill | Cardiology | Gary Fuentes MD | Refill Request | | 2008 | | Arrhythmia at [facility] | [address] | | | | | [address] | [address] [place], | | | | | [facility] | [place] [address] | | | | | and Healing, | [phone] | | | | | [facility] | | | | | | Floor [place], [place] | | | | | | [address] | | | | | | [phone] | | | +--------+--------+ + + + [...]
--- OUTSIDE RECORDS SUMMARY | ~2020-05-04 | XMS | Encounter Summary ---
Demographics + + + | Address | [address] | | | [place] [address] | + + + | Home Phone [...] [place], | | | | | [place] [address] | | + + + + + Care Team Providers + +------+ + | Care Ground Instructor Advanced Name | Role | Phone | + [...] | | | | CONSULT TO | [address] | 4th Floor | | | | | RHEUMATOLOGY | Phone: | [place], [place] | | | | | INFUSION | [phone] | [address] | | | | | UNIT [place] INJ | Fax: | Phone: | | | | | | [phone] | [phone] | | | | | ZOLEDRONICCI | | Fax: | | | | | D [place] | | [phone] | | | | | THR/PRPH/DX | [...] | breast and | [address] | [facility] | | | | | nipple | [place], [place] | Rd [place], | | | | | Procedures | [address] | [place] | | | | | CONSULT TO | Phone: | [phone] | | | | | ENDO | [phone] | Phone: | | | | | [address] | Fax: | [phone] | | | | | [address] | [phone] | Fax: | | | | | | | [phone] | +--------+ + + + + + Encounter Details +--------+---------+ + + + | Date | Type | Department | Care Team | Description | +--------+---------+ + + + | 10/14/ | Office | [facility] | Tapan Horowitz MD | Osteopenia (Primary | | 2010 | Visit | [facility] | [address] [facility] | Dx); Thyroid nodule | | | | [facility] | [address] [place], | | | | | [address] | [place] [address] | | | | | [address] | [phone] | | | | | Physician's | | | | | | Pavilion, 1st floor | | | | | | [place], [place] | | | | | | [address] | | | | | | [phone] | | | +--------+---------+ + + + [...] + | Blood Pressure | 130/70 | 04/28/2011 12:24 PM | | | | | PDT | | + + + + + | Pulse | 60 | 04/28/2011 12:24 PM | | | | | PDT | | + + + + + | Temperature | - | - | | + + + + + | Respiratory Rate | 12 | 04/28/2011 12:24 PM | | | | | PDT | | + + + + + | Oxygen Saturation | - | - | | + + + + + | Inhaled Oxygen | - | - | | | Concentration | | | | + + + + + | Weight | 64.5 kg (142 lb 3.2 | 04/28/2011 12:24 PM | | | | oz) | PDT | | + + + + + | Height | 167.6 cm (5' 6") | 04/28/2011 12:24 PM | | | | | PDT | | + + + + + | Body Mass Index | 22.95 | 04/28/2011 12:24 PM | | | | | PDT | | + + + + + documented in this encounter Progress Notes Tapan Horowitz MD - 04/28/2011 12:53 PM PDTFormatting of this note might be different from t brigido original. Chief Complaint: Patient being seen in followup for the following issues: Osteopenia ROS Cardiovascular and pulmonary systems have been reviewed and are unchanged from past visits. History Smoking status Never Smoker Smokeless tobacco Not on file Comment: nonsmoker/parents smoked History Alcohol Use No S/ Interval History: pt reports no falls, fractures, kidney stones since last visit in January 2010. Her breast cancer is stable and her heart issues are stable. Has no new health issues today. Exam: Filed Vitals: 04/28/2011 12:24 PM Height: 1.676 m (5' 6") Weight: 64.501 kg (142 lb 3.2 oz) BP: 130/70 Pulse: 60 Resp: 12 PainSc: 0 - Zero BMI: 22.95 kg/(m^2) Gen: NAD CV: Regular Lungs: CTA MS: no kyphosis Eent; thyroid 20 gm, no nodules Neuro: Alert and oriented x 3 A/P 1. Osteopenia: Pt has rcvd Reclast infusion in 2008 and 2009 and it has been very successfu l in preventing bone loss due to the use of arimidex. Her spine is improved and her hip is s teady since 2009 but is overall declined since 2007. However, this is not enough of an outco me to switch therapies (i.e to PROLIA). Will proceed with third and final Reclast infusion f or 2010. Pt sees dentist yearly and her vit d level is optimal. 2. Thyroid nodule: pt has a hx of small thyroid nodule found incidentally. Will get f/u ult rasound to assess and pursue FNA biopsy for a nodule over 1 cm in size. Electronically sukhdeep d by Tapan Horowitz MD at 04/28/2011 12:57 PM PDTdocumented in this encounter Plan of Treatment Not on filedocumented as of this encounter Results US SOFT TISSUE HEAD [...]
--- OUTSIDE RECORDS SUMMARY | ~2020-05-04 | XMS | Encounter Summary ---
Demographics + + + | Address | [address] | | | [place] [address] | + + + | Home Phone [...] + | Gene Gee | ECON | [address] | | | | | [place], | | | | | [place] [address] | | + + + + + Care Team Providers + +------+ + | Care Windows Desktop Engineer Name | Role | Phone | + +------+ + | Antony Ribera MD | PCP | | + +------+ + Reason for Visit + + + | Reason | Comments | + + + | Medicare | | | Certification | | + + + Physical Therapy [...] | cancer (HCC) | [address] | [address] [place] | | | | | Scar | [address] | for Health | | | | | Breast pain | [address] | and Healing, | | | | | Procedures | [facility], | [address], | | | | | PHYSICAL | [place] [address] | 1st Floor | | | | | THERAPY | Phone: | [place], [place] | | | | | REFERRAL | [phone] | [address] | | | | | | Fax: | Phone: | | | | | | [phone] | [phone] | | | | | | | Fax: | | | | | | | [phone] | +--------+--------+ + + + + Encounter Details +--------+---------+ + + + | Date | Type | Department | Care Team | Description | +--------+---------+ + + + | 04/10/ | Office | [facility] | Deonna Montague, PT | Breast cancer (HCC) | | 2012 | Visit | Therapy Services at | [address] | (Primary Dx); Scar | | | | [facility] | [address] [place], | tissue | | | | [address] | [place] [address] | | | | | [facility] | [phone] | | | | | and Healing, | | | | | | [address], 1st | | | | | | [facility], [place] | | | | | | [address] | | | | | | [phone] | | | +--------+---------+ + + + [...] documented as of this encounter Progress Notes Deonna Montague, PT - 04/10/2013 1:55 PM PDT [id number] ADRIANA BAXTER Date of : 1945 Start of care: 04/10/2013 Date of onset: Date of Onset: 10/04/12 Referring/Attending Practitioner: Errol Gold MD . Primary/Referral Diagnosis/ICD-9:174.9 Breast cancer 709.2 Scar tissue Insurance: Payor: MEDICARE Plan: MEDICARE A & B Product Type: Medicare Service period from: 04/10/2013 to: 05/08/13 Number visits used/authorized: 07/24 SUBJECTIVE: History of Presenting Problem: Adriana Baxter is a 67 y.o. female who is being referred to physical therapy with chief complaint of : random pain from scar area on left breast that ex tends up to underarm. It has been improving very slowly. Has had scar treatments involving Graston techniques which were helpful. Initial Evaluation Status Symptoms 04/10/2013 Functional outcome Patient Goal at discharge PAIN PATTERN: Onset of symptoms related to: mastectomy and reconstruction with implant Duration: Conditon is: slowly better, fewer episodes intermittent with intensity, now sometimes not a s intense. Pain location: scar incision up to armpit. Pain level: 10 Aggravating factors: random Alleviating factors: tries massage Daily Pattern: Current Exercise: racquet ball 3x/wk some wt lifting Right handed Patient reports difficulty functionally with: none senior care goals: 1. Performing self scar tissue massage correctly- GOAL MET by end of session. 2. Reduced pain episodes to 0. 3. Independent with home program. Bold indicates problem area. SUBJECTIVE: Previous physical therapy treatment for this condition includes: none. Results of previous treatment: N/A. Concurrent medical treatment: Breast cancer surger., Past Medical History: has a past medical history of Sjogrens syndrome (1995); Fibromyalgia (1995); Mitral valve prolapse (1989); GERD (gastroesophageal reflux disease) (1995); Asthma (1999); TMJ (dislocation of temporomandibular joint); Fibrocystic disease of breast (1978); Diverticul disease small and large intestine, no perforati or abscess; Skin cancer; Small b owel obstruction (07/20,10/19,02/19); Atrial tachycardia (07/20); Bursitis (2005); Plantar fasci al fibromatosis (2006); Osteopenia (12/30/2007); Breast cancer (02/2007); Shingles; Difficult intravenous access; Atrial fibrillation (05/2012); Pulmonary embolus (09/2008); Deep vein thr ombosis of lower extremity; and Undiagnosed cardiac murmurs. She also has no past medical hi story of Fracture or Kidney stones. Past Surgical History: has past surgical history that includes ectopic ; appendec sander; removal adhesion; hysterectomy; bladder tie up; colon resection, diverticulitis (); removal gallbladder (04/07/03); hernia repair (07/28/2003); liver cyst ruptured (04/30/20 04); liver cyst removed (06/29/2004); carpal tunnel release; punctum closed (eyes) (40 years old); sinus procedure (1989?); hemorrhoidectomy (1991); left leg veins (1991); bunions/eunice er toes/neuromas (1998,1999); heart ablation (12/16/2004,09/21/2005); mastectomy; and biopsy / e xcision / dissection axillary node. Diagnostic testing: Results of tests: negative, by patient report. OBJECTIVE: Vitals: There were no vitals taken for this visit. Posture/alignment/observation: Scoliosis noted with forward bend- rib hump on left thoracic region. Skin: scar incision distal to left nipple extends approximately 3 inches. ROM: UE ROM with in normal limits except unable to reach hand behind back to opposite blade on left side. Reaches T 12. MMT: UE grossly 5/5 Palpation: firm scar tissue size of a dime mid incision, and linear distal 1/2 inch approxi mately. Neuro Screen: no complaints of distal symptoms, no symptoms created during ROM measurement s. Gait/Balance: NT Treatment consisted of teaching Adriana a home exercise program, written instruction was give n. 1. Instruction in self massage technique-she had been moving fingers over skin, re-instruct ed in keeping fingers in place and glide skin over under layers. 2. Pectoral stretching with utilizing breath for ribcage mobilization and pectoral stretch. Adriana was seen for a total of 45 minutes of treatment time. 45 minutes was in direct contac t care as described above and on completed flow sheets. Therapeutic exercises: 5 minutes Includin. Assessment of signs and symptoms as they p ertain to home program/exercise performance. 2. Attention to exercise clarification of per formance and rationale. 3. Modifications and additions with education of performance and ra tionale. Manual therapy: 15 minutes Including assessment of signs and symptoms as they pertain to e ffectiveness of intervention and logical and progression. Treatment: began: 1355 Treatment ended: 1440 ASSESSMENT: See topics above for problem areas and goals Rehab Potential: Good, if Adriana carries through with home exercise program. 1. Scar linear distally then has a round area mid-scar about size of a dime, painful with g etting under scar tissue. 2. Patient would like to continue working on scar herself and will follow up in a couple mo nths as she has surgeries and other health appointments that will take up her time. With her using the scar tissue technique today, she may improve on her own with reducing pa in and possibly size of scar. G8990 PQRI OTHER PT/OT CURRENT STATUS Impairment 20-39 % G8991 PQRI OTHER PT/OT GOAL STATUS Impairment 1-19 % Adriana Holman requires services that can be safely and effectively performed only by a qualified therapist to address the aforementioned and highlighted problems and goals. Goals discussed and agreed upon with Adriana and family. Individual cultural and social needs addressed. PLAN OF CARE: Declined Astym treatment at this time, thus, self treatment per patient request due to her busy schedule. Frequency and Duration: Follow up in 2 months if needed. This note is to serve as the discharge summary if Adriana fails to attend further Physical Th erapy appointments or contact the therapist regarding any change in their status. Deonna Montague [facility] [address] [facility] [address] Mailcode: [address] [facility], [address] [facility] [address] documented in this enco unter Plan of Treatment + + +--------+ + + | Name | Type | Priori | Associated Diagnoses | Order Schedule | | | | ty | | | + + +--------+ + + | PQRI OTHER PT/OT | Procedures | Routin | Breast cancer | Ordered: 04/10/2013 | | CURRENT STATUS | | e | (HCC) Scar tissue | | + + +--------+ + + | PQRI OTHER PT/OT | Procedures | Routin | Breast cancer | Ordered: 04/10/2013 | | GOAL STATUS | | e | (HCC) Scar tissue | | + + +--------+ + + | REHABILITATION | Procedures | Routin | Breast cancer | Ordered: 04/10/2013 | | MEDICARE | | e | (HCC) Scar tissue | | | CERTIFICATION | | | | | + + +--------+ + + documented as of this encounter Procedures + +--------+ + + + | Procedure Name | Priori | Date/Time | Associated Diagnosis | Comments | | | ty | | | | + +--------+ + + + | SC MANUAL THER | Routin | 04/10/2013 | Breast cancer | | | TECH,1+REGIONS,EA 15 | e | 3:20 PM | (HCC) Scar tissue | | | MIN | | PDT | | | + +--------+ + + + | SC PHYS THERAPY | Routin | 04/10/2013 | Breast cancer | | | EVALUATION | e | 3:20 PM | (HCC) Scar tissue | | | | | PDT | | | + +--------+ + + + documented in this encounter Visit Diagnoses + + | Diagnosis | + + | Breast cancer (HCC) - Primary Malignant neoplasm of breast (female), unspecified site | + + | Scar tissue Scar condition and fibrosis of skin | + + documented in this encounter"
--- OUTSIDE RECORDS SUMMARY | ~2020-05-04 | XMS | Encounter Summary ---
Demographics + + + | Address | [address] | | | [place] [address] | + + + | Home Phone [...] + | Gene Gee | ECON | [address] | | | | | [place], | | | | | [place] [address] | | + + + + + Care Team Providers + +------+ + | Care Housekeeping Aid Name | Role | Phone | + +------+ + | Antony Ribera MD | PCP | | + +------+ + Encounter Details +--------+ + + + + | Date | Type | Department | Care Team | Description | +--------+ + + + + | 07/12/ | Telephone | Cardiology General | Monique Middleton, | | | 2006 | | at [facility] [address] | MICHAEL | | | | | [place] for | | | | | | Health and Healing, | | | | | | Building | | | | | | Floor [place], [place] | | | | | | [address] | | | | | | [phone] | | | +--------+ + + + [...] Telephone Encounter - Kane Schwarz, Monique - 07/12/2007 5:27 PM PSTCalled because she had ch emo last week and yesterday and today has had some palpitations. She took extra atenolol ye sterday and advised her that it is OK to take extra if she feels she needs it--she usually t akes 25mg daily, said she could take up to 100mg daily if needed. documented in this encounter Plan of Treatment Not on filedocumented as of this encounter Visit Diagnoses Not on filedocumented in this encounter"
--- OUTSIDE RECORDS SUMMARY | ~2020-05-04 | XMS | Encounter Summary ---
Demographics + + + | Address | [address] | | | [place] [address] | + + + | Home Phone [...] + | Gene Gee | ECON | [address] | | | | | [place], | | | | | [place] [address] | | + + + + + Care Team Providers + +------+ + | Care Acls Specialist Name | Role | Phone | + +------+ + | Antony Ribera MD | PCP | | + +------+ + Reason for Visit + +--------+ + | Reason | Onset | Comments | | | Date | | + +--------+ + | Infusion | 01/19/ | | | | 2008 | | + +--------+ + Encounter Details +--------+---------+ + + + | Date | Type | Department | Care Team | Description | +--------+---------+ + + + | 01/19/ | Office | Rheumatology at | | Unspecified | | 2008 | Visit | [facility] [address] | | Osteoporosis | | | | [address] | | | | | | Physician's | | | | | | [place], 4th Floor | | | | | | [place], [place] | | | | | | [address] | | | | | | [phone] | | | +--------+---------+ + + + [...] + + + | Blood Pressure | 122/78 | 01/19/2009 11:11 AM | | | | | PDT | | + + + + + | Pulse | 60 | 01/19/2009 11:11 AM | | | | | PDT | | + + + + + | Temperature | 36.7 C (98.1 F) | 01/19/2009 11:11 AM | | | | | PDT | | + + + + + | Respiratory Rate | 20 | 01/19/2009 11:11 AM | | | | | PDT [...] + + documented in this encounter Progress Ita Kc - 01/19/2009 11:13 AM PDTFormatting of this note might be different from zachariah tamez. INFUSION NURSING NOTE Physician: Carlos Manuel Subjective: Feeling good Pre-Infusion Pain Score: Patient reports a pain level of 0 today. Weight: Last 1 Encounter Wt Readings: Date Wt 12/29/2008 65.273 kg (143 lb 14.4 oz) Heart / Lung Sounds: 60 Labs: None Venous Access: Left Hand Needle Gauge: 24 IV flushed with Ns Premedications: None Infusioned medications: Reclast Total Amount of Infused Medication: Reclast 5mg Start Time: 1110 Stop Time: 1140 Total Infusion Time: 30 minutes Rate:cc/hr Time: ml/min BP: HR: R: T: Symptoms 1045 122/78 60 20 36.7 175 1110 Reclast hung 1140 120/64 60 18 36.4 Infused and dc'd Post-Infusion Pain Score: 0/10 Assessment: Tolerated procedure, IV Discontinued and Intact documented in this encoun ter Miscellaneous Notes Scan - Gisele Strong - 03/18/2009 2:59 PM PDT clashawn - Jhonatan Strong - 03/18/2009 2:58 PM PDTAssociated Order(s): LAB REPORTS documented in this encou nter Plan of Treatment Not on filedocumented as of this encounter Procedures + +--------+ + + + | Procedure Name | Priori | Date/Time | Associated Diagnosis | Comments | | | ty | | | | + +--------+ + + + | LAB REPORTS | | 03/18/2009 | | Results for this | | | | 2:58 PM | | procedure are in the | | | | PDT | | results section. | + +--------+ + + + documented in this encounter Results LAB REPORTS (03/18/2009 2:58 PM PDT) + + + | Narrative | Performed At | + + + | | | + + + + + | Procedure Note | + + | Gisele Strong - 03/18/2009 2:58 PM PDT | | | + + documented in this encounter Visit Diagnoses + + | Diagnosis | + + | Osteoporosis, unspecified | + + documented in this encounter"
--- OUTSIDE RECORDS SUMMARY | ~2020-05-04 | XMS | Encounter Summary ---
Demographics + + + | Address | [address] | | | [place] [address] | + + + | Home Phone [...] + | Gene Gee | ECON | [address] | | | | | [place], | | | | | [place] [address] | | + + + + + Care Team Providers + +------+ + | Care Supervisor Volunteer Services Name | Role | Phone | + +------+ + | Antony Ribera MD | PCP | | + +------+ + Encounter Details +--------+ + + + + | Date | Type | Department | Care Team | Description | +--------+ + + + + | 03/12/ | MyChart | Plastic and | Errol Gold | RE: Recent surgery | | 2012 | Encounter | Reconstructive | MD [address] | | | | | Surgery at [facility] [address] | | | | [facility] | [address] [place], [place] | | | | | for Health and | [address] | | | | | Healing, [address], | | | | | | [address] [facility] | | | | | | [place], [place] | | | | | | [address] | | | | | | [phone] | | | +--------+ + + + [...]
--- OUTSIDE RECORDS SUMMARY | ~2020-05-04 | XMS | Encounter Summary ---
Demographics + + + | Address | [address] | | | [place] [address] | + + + | Home Phone [...] + | Gene Gee | ECON | [address] | | | | | [place], | | | | | [place] [address] | | + + + + + Care Team Providers + +------+ + | Care Hospital Administrator Name | Role | Phone | + +------+ + | Antony Ribera MD | PCP | | + +------+ + Reason for Visit + +--------+ + | Reason | Onset | Comments | | | Date | | + +--------+ + | Refill Request | 01/24/ | Sachin | | | 2017 | | + +--------+ + Encounter Details +--------+--------+ + + + | Date | Type | Department | Care Team | Description | +--------+--------+ + + + | 01/24/ | Refill | Pulmonary & | Keshawn Dang | Refill Request | | 2017 | | Critical Care | MD Sayda | ([place]) | | | | Medicine at | | | | | | [facility] | | | | | | [address] | | | | | | Loop Physician's | | | | | | Pavilion, 3rd Floor | | | | | | [place], [place] | | | | | | [address] | | | | | | [phone] | | | +--------+--------+ + + + [...] Telephone Encounter - Virginia Castro MA - 01/24/2017 10:06 AM PDTFormatting of this not e might be different from the original. REFILL REQUEST DATE: January 24, 2017 PATIENT: Adriana Flynn [id number] MESSAGE: Received a refill request from the pharmacy. Patient was seen last by Dr. Hansen. Requested Prescriptions Pending Prescriptions Disp Refills fluticasone (FLONASE) 50 mcg/actuation nasal spray,suspension 16 each 5 Sig: Instill 1 spray into each nostril two times daily. LAST APPOINTMENT: 10/02/16 at 10:00 am NEXT APPOINTMENT: 04/30/17 at 11:30 am Patient's pharmacy has been verified: Yes [id number] [id number] [place] [address] documented in this encounter Plan of Treatment Not on filedocumented as of this encounter Visit Diagnoses + + | Diagnosis | + + | Chronic sinusitis, unspecified location | + + documented in this encounter"
--- OUTSIDE RECORDS SUMMARY | ~2020-05-04 | XMS | Encounter Summary ---
Demographics + + + | Address | [address] | | | [place] [address] | + + + | Home Phone [...] + | Gene Gee | ECON | [address] | | | | | [place], | | | | | [place] [address] | | + + + + + Care Team Providers + +------+ + | Care Barrel Inspector Name | Role | Phone | + +------+ + | Alec Hill MD | PCP | | + +------+ + Reason for Visit + +--------+ + | Reason | Onset | Comments | | | Date | | + +--------+ + | Update from Patient | 12/17/ | lung mass found on imaging today | | | 2013 | | + +--------+ + Encounter Details +--------+ + + + + | Date | Type | Department | Care Team | Description | +--------+ + + + + | 12/17/ | Telephone | Pulmonary & | Thalia Barnard, | Update from Patient | | 2013 | | Critical Care | [facility] | (lung mass found on | | | | Medicine at | [facility] [place] | imaging today) | | | | [facility] | [address] | | | | | [address] | [address] [place], | | | | | Loop Physician's | [place] [address] | | | | | Pavilion, [facility] Floor | [phone] | | | | | [place], [place] | | | | | | [address] | | | | | | [phone] | | | +--------+ + + + [...] this encounter Miscellaneous Notes Telephone Encounter - Carmen Roque - 12/17/2013 4:58 PM PDTCarol called to request an ear lier appt in pulmonary. She had imaging at [facility] in [place] and a mass in her ri ght lung was found. I called [facility] and they are mailing the image on a CD. documented in this encounter Plan of Treatment Not on filedocumented as of this encounter Visit Diagnoses Not on filedocumented in this encounter"
--- OUTSIDE RECORDS SUMMARY | ~2020-05-04 | XMS | Encounter Summary ---
Demographics + + + | Address | [address] | | | [place] [address] | + + + | Home Phone [...] + | Gene Gee | ECON | [address] | | | | | [place], | | | | | [place] [address] | | + + + + + Care Team Providers + +------+ + | Care Wrapper Selector Name | Role | Phone | + +------+ + | Antony Ribera MD | PCP | | + +------+ + Encounter Details +--------+ + + + + | Date | Type | Department | Care Team | Description | +--------+ + + + + | 04/27/ | Documentati | Pulmonary & | Dez Hansen, | | | 2015 | on | Critical Care | ,PhD [address] | | | | | Medicine at | [facility] | | | | | Physicians [place] | [place], [place] | | | | | [address] | [address] | | | | | Loop Physician's | [phone] | | | | | [place], [facility] Floor | | | | | | [place], [place] | | | | | | [address] | | | | | | [phone] | | | +--------+ + + + [...]
--- OUTSIDE RECORDS SUMMARY | ~2020-05-04 | XMS | Encounter Summary ---
Demographics + + + | Address | [address] | | | [place] [address] | + + + | Home Phone [...] + | Gene Gee | ECON | [address] | | | | | [place], | | | | | [place] [address] | | + + + + + Care Team Providers + +------+ + | Care Ornithology Teacher Name | Role | Phone | + +------+ + | Antony Ribera MD | PCP | | + +------+ + Encounter Details +--------+ + + + + | Date | Type | Department | Care Team | Description | +--------+ + + + + | 11/15/ | Abstract | Cardiology | Elijah Whalen, | | | 2017 | | Arrhythmia at [facility] | [address] | | | | | [address] | [address] | | | | | [facility] | [place], [place] | | | | | and Healing, | [address] | | | | | [facility] | [phone] | | | | | Floor [place], [place] | | | | | | [address] | | | | | | [phone] | | | +--------+ + + + [...]
--- OUTSIDE RECORDS SUMMARY | ~2020-05-04 | XMS | Encounter Summary ---
Demographics + + + | Address | [address] | | | [place] [address] | + + + | Home Phone [...] + | Gene Gee | ECON | [address] | | | | | [place], | | | | | [place] [address] | | + + + + + Care Team Providers + +------+ + | Care System Technologist Name | Role | Phone | + +------+ + | Antony Ribera MD | PCP | | + +------+ + Encounter Details +--------+ + + + + | Date | Type | Department | Care Team | Description | +--------+ + + + + | 07/25/ | Telephone | Cardiology General | Monique Middleton, | | | 2007 | | at [facility] [address] | MICHAEL | | | | | [facility] [place] [facility] | | | | | | Health and Healing, | | | | | | Building | | | | | | Floor [place], [place] | | | | | | [address] | | | | | | [phone] | | | +--------+ + + + [...] Telephone Encounter - Monique Middleton Np - 07/25/2007 8:21 AM PSTSpoke with Tricia Velazquez MD about her chemo and rhythms. Also spoke with Adriana. She had been treating her rhythms with increased atenolol. Discussed increasing her moricizine during her chemo sessions. Rx given for moricizine 250mg three times daily. documented in this encounter Plan of Treatment Not on filedocumented as of this encounter Visit Diagnoses Not on filedocumented in this encounter"
--- OUTSIDE RECORDS SUMMARY | ~2020-05-04 | XMS | Encounter Summary ---
Demographics + + + | Address | [address] | | | [place] [address] | + + + | Home Phone [...] + | Gene Gee | ECON | [address] | | | | | [place], | | | | | [place] [address] | | + + + + + Care Team Providers + +------+ + | Care Director Of Strategic Initiatives Name | Role | Phone | + +------+ + | Antony Ribera MD | PCP | | + +------+ + Reason for Visit + +--------+ + | Reason | Onset | Comments | | | Date | | + +--------+ + | Refill Request | 07/24/ | | | | 2008 | | + +--------+ + Encounter Details +--------+--------+ + + + | Date | Type | Department | Care Team | Description | +--------+--------+ + + + | 07/24/ | Refill | Cardiology General | Monique Middleton, | Refill Request | | 2007 | | at [facility] [address] | [place] | | | | | [facility] | | | | | | Health and Healing, | | | | | | [facility] | | | | | | Floor [place], [place] | | | | | | [address] | | | | | | [phone] | | | +--------+--------+ + + + [...]
--- OUTSIDE RECORDS SUMMARY | ~2020-05-04 | XMS | Encounter Summary ---
Demographics + + + | Address | [address] | | | [place] [address] | + + + | Home Phone [...] + | Gene Gee | ECON | [address] | | | | | [place], | | | | | [place] [address] | | + + + + + Care Team Providers + +------+ + | Care Dining Room Hostess Name | Role | Phone | + [...] + + | 06/26/ | Hospital | [address] | Kelsi Lopez | | | 2011 - | Encounter | [address] | MD Sudhir | | | | | [facility] | | | | 06/27/ | | [place] | | | | 2011 | | [address] | | | | | | [phone] | | | +--------+ + + + [...] Procedures 1. 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 Patient has a history of atria l [...] once daily. fluticasone (FLONASE) 50 mcg/actuation Nasal [place], Suspension Instill 1 [place] into each no stril two times daily. [...] narcotic pain medications, please call the clinic ([phone] ) by 2 pm on for any [...] doctor through the plastic surgery clinic at [phone]. Please ke ep in mind that you [...] sent through Care Everywhere.Breast Reconstr uction With Salesperson Meats or Implant: What to Expect at Homedocumented [...] Dez Roy MD - 06/27/2012 5:51 AM [facility] PLASTIC SURGERY PROGRESS NOTE: Hospital Day:1 Author; [...] drains in place Assessment and Plan: Adriana Holman Gee is a 66 y.o. female who is S/P Placement of right subpectoral tissue fastener sewing machine operator Dc today F/u Abx until drain is dced BID drain care BRANNON ARCHER MD Custom Marine Canvas Fabricator Department of Plastic Surgery [facility] 06/27/2012 5:51 AM ackmanBrannon MD - 06/26/2012 5:37 PM PSTPatient to be admitted to observation secondary to high perioperative risk given recent episode of atrial fibrillation, history of PE and DVT, also for post-oper ative pain control. Brannon Archer MD Plastic Surgery [id number] signed by Brannon Archer MD at 06/26/2012 5:39 PM P STdocumented in this encounter H&P Notes Other, Faculty - 07/01/2012 11:07 AM PSTElectronically signed by Faculty Other at 2 11:08 AM PSTdocumented in this encounter Procedure Notes Other, Faculty - 07/01/2012 11:07 AM PSTAssociated Order(s): PROCEDURE NOTEElectronically s igned by Faculty Other at 07/01/2012 11:08 AM PSTMuKelsi srivastava MD - 06/26/2012 5:20 P M PSTAssociated Order(s): PROCEDURE NOTEDate: 06/26/12 Attending Surgeon: Kelsi Lopez MD Pyrotechnist(s): Barron Archer MD Preoperative Diagnosis(es): Acquired absence of right breast Postoperative Diagnosis(es): Acquired absence of right breast Procedure Performed: Placement of right subpectoral tissue fastener sewing machine operator 450 mL Bellmawr Siltex Contour Profile fastener sewing machine operator, reference #[id number], serial #[id number] , filled to 250 mL intraoperatively Anesthesia: [...] the procedure, informed consent was obtained. [facility] risks discussed with the patient included bleeding, [...] Then, we began preparation of the tissue fastener sewing machine operator. A 450 mL Bellmawr tissue fastener sewing machine operator fille d to 50 mL was placed [...] with 3-0 Polysorb horizontal mattress sutures. A 19-Arabic Alexander drain was placed in the subcutaneous [...] 07/01/2012 11:07 AM PSTElec tronically signed by Faculty Other at 07/01/2012 11:08 AM PSTCarrie Nieto - 06/27/2012 10:37 AM PSTPatient discharged via wheelchair home with . PIVS discontinu ed with catheter intact. Patient stated understanding of AVS, drain and incision care. Stabl e at time of discharge la n of [...] pain controlled on oral pain meds, voids valucheli - Aranza Judge RN - 06/27/2012 6:21 [...] focus of stay: BREAST RECONSTRUCTION WITH TISSUE TRACK EQUIPMENT OPERATOR PLACEMENT - RIGHT BREAST RECONSTRUCTION WITH TISSUE TRACK EQUIPMENT OPERATOR PLACEMENT Patient to be admitted to observation [...] locally at a hotel, they are from [facility] area. Last patient visit (i.e. Falls/Activity/Comfort/Environment/Toileting/Skin): Anticipated or pending procedures: lowsheet Note - Mary Cummings RN - 06/26/2012 8:30 PM [id number] pt reports she takes aciphex 20mg PO [...] Actual Procedure Performed: BREAST RECONSTRUCTION WITH TISSUE TRACK EQUIPMENT OPERATOR PLACEMENT - RIGHT BREAST RECONSTRUCTION WITH TI SSUE TRACK EQUIPMENT OPERATOR PLACEMENT Pathology x1 Anesthesia: General Length of procedure: In Room/Out of Room: 2 Hr 5 Min 58 Sec Surgeon(s) and Role: * Kelsi Lopez MD - Primary OR positioning comments: supine Neuro: POSS Sedation Level: Slighty Drowsy Last pain medication given: Pain medication totals: 100mcg Fentanyl, 1mg hydromorphone Additional pain medication information: 5 mg oxycodone Functional Epidural: N/A [employer]S SUPERINTENDENT: N/A Respiratory: RR: 13 , O2 Sat: 100 %, O2 Delivery: None (room air) Breath Sounds: WDL JOSEFINA: LLL: RUL: RLL: MAURO Yes Comment: breathing easy no signs of obstruction on RA Cardiac: BP: 134/74 mmHg HR: 68 GI: Nausea/Vomiting Status: No Signs/Symptoms: Interventions: Assessment: Comments: tolerating fluids : Last void: 1430 Contact Name: Deepak Flynn (spouse) Contact Number: [phone] Family contacted: Yes Comment: has been updated [...] breast and nipple | | | TISSUE TRACK EQUIPMENT OPERATOR | Surgic | PST | | | [...] Shah, | | | | | | M.DJose/PathologistT:06/28/ | | | | | | Clinical [...] lesions. | | | | | | Fuel Tank Sealer And Tester | | | | | | sections [...] + + + | [facility] | [address] | [place] [address] | | | PATHOLOGY | [address] | | | + + + + + documented in this encounter Visit Diagnoses + + | Diagnosis | + + | Acquired Absence of Breast - Primary Acquired absence of breast and nipple | + + | Sjogren's syndrome (HCC) Sicca syndrome | + + | Atrial tachycardia 427.89 Other specified cardiac dysrhythmias | + + | History of DVT (deep vein thrombosis) Personal history of venous thrombosis and | | embolism | + + | Other pulmonary embolism and infarction | + + documented in this encounter [...] | bacitracin ointment topical, | Given | 06/27/20 | | | | | TWICE DAILY, First dose on Sun | | 12 8:44 | | | | | 06/26/12 at 2100, Until | | AM PST [...] | | | | | NEEDED, Starting Sun06/26/12 at | | | | | | | 1731, Until Sun06/27/12 at 1639, | | | | | [...] | RABEprazole (aka ACIPHEX) | Given | 12/13/20 | 20 mg | | | | [...]
--- OUTSIDE RECORDS SUMMARY | ~2020-05-04 | XMS | Encounter Summary ---
Demographics + + + | Address | [address] | | | [place] [address] | + + + | Home Phone [...] + | Gene Gee | ECON | [address] | | | | | [place], | | | | | [place] [address] | | + + + + + Care Team Providers + +------+ + | Care Successfactors Consultant Name | Role | Phone | + +------+ + | Antony Ribera MD | PCP | | + +------+ + Encounter Details +--------+ + + + + | Date | Type | Department | Care Team | Description | +--------+ + + + + | 12/28/ | Hospital | Diagnostic Imaging | | | | 2008 | Encounter | Services at [facility] | | | | | | [address] | | | | | | Deisi [place] | | | | | | [address] | | | | | | [place], [place] | | | | | | [address] | | | | | | [phone] | | | +--------+ + + + [...] CT CHEST WO CONTRAST | Routin | 12/28/2008 | Other Pulmonary | Results for this | | | e | 2:50 PM | Embolism and | procedure are in the | | | | PDT | Infarction | results section. | | | | | Pulmonary Nodules | | + +--------+ + + + [...] MONAE | | | | | | STATKUS, M.D.Reviewer: | | | | | | LAUREN WYNNE, | | | | | | M.DJoseSTATUS FINAL / Dr. | | | | | | LAUREN WYNNESTATUS | | | | | | PENDING FINAL APPROVAL / | | | | | | Dr. MONAE CALDWELLUS | | | | | | RESULT MODIFIED / Dr. | | | | | | MONAE [...] | | + +---------+ + + | [facility] DEPARTMENT OF | | | [...]
--- OUTSIDE RECORDS SUMMARY | ~2020-05-04 | XMS | Encounter Summary ---
Demographics + + + | Address | [address] | | | [place] [address] | + + + | Home Phone [...] + | Gene Gee | ECON | [address] | | | | | [place], | | | | | [place] [address] | | + + + + + Care Team Providers + +------+ + | Care Gatekeeper Name | Role | Phone | + +------+ + | Alec Hill MD | PCP | | + +------+ + Encounter Details +--------+ + + + + | Date | Type | Department | Care Team | Description | +--------+ + + + + | 05/30/ | Outside | Endoscopic | Doug Ribera | | | 2017 | Referral | Procedural Unit at | MD Saman | | | | Order | Tawn[address] [place] [facility] | | | | | [address] | MEDICINE [address] | | | | | [place], | [facility] | | | | | 4th floor [place], | [place] [address] | | | | | [place] [address] | [phone] | | | | | [phone] | | | +--------+ + + + [...] on filedocumented as of this encounter Results EGD (06/26/2017 10:22 AM PST) + + | Specimen | + + | | + + + + ---+ | Narrative | Performed At | + + ---+ | MRN: | [facility] | | [id number] Date: 06/26/2017Patient Name: Adriana Coon #: | ENDOSCOPY | | [id number] of : 4CSN: [id number] Type: | | | AmbulatoryRoom: GI 3Procedure: Upper GI | | | endoscopyIndications: DysphagiaProviders: | | | ASHLEY SUNSHINE MD (Doctor), UDAY VIZCARRA RN | | | (Nurse), GAUTAM BRADY, Dry Cans Back Tender (Dry Cans Back Tender)Referring | | | MD: DOUG RIBERA, MDRequesting Provider: Medicines: | | | Monitored Anesthesia CareComplications: No | | | immediate complications.Procedure: Pre-Anesthesia | | | Assessment: - ASA Grade Assessment: II - | | | A patient with mild systemic disease. | | | Prior to the procedure, a History and | | | Physical with airway assessment was | | | performed (see patient record), and | | | patient medications and allergies were reviewed. The | | | risks and benefits of the procedure and the sedation | | | options and risks were discussed. All | | | questions were answered and informed | | | consent was obtained. After reviewing | | | the risks and benefits, the patient was deemed | | | in satisfactory condition to undergo the procedure. | | | Immediately prior to administration of | | | medications, the patient was | | | re-assessed for adequacy to receive | | | sedatives. The heart rate, respiratory rate, oxygen | | | saturations, blood pressure, adequacy of pulmonary | | | ventilation, and response to care were | | | monitored throughout the procedure. The | | | physical status of the patient was | | | re-assessed after the procedure. The | | | Olympus [id number]-[id number] Endoscope #[id number] was introduced | | | through the mouth, and advanced to the third part of | | | duodenum.Estimated Blood Loss: | | | Estimated blood loss: none.Findings: The Z-line was regular and | | | was found 41 cm from the incisors. The esophagus was normal. | | | Multiple 5 mm sessile polyps were found in the gastric body typical | | | of FGPs in patient on chronic PPI therapy. The stomach | | | was normal.Impression: - Z-line regular, 41 cm from the | | | incisors. - Normal esophagus. | | | - Multiple gastric polyps. | | | - Normal stomach. - No | | | specimens collected. No findings to | | | explain dysphagiaRecommendation: - Perform ambulatory | | | esophageal manometry if symptoms | | | persist.ASHLEY SUNSHINE MD06/26/2017 10:47:05 AMThis report | | | has been signed electronically.Number of Addenda: 0Note Initiated On: | | | 06/26/2017 10:22 [facility] Letter to: DOUG RIBERA MD | | | - Normal stomach. | | | - No specimens collected. | | | No findings to explain dysphagia | | |Recommendation: - Perform ambulatory esophageal manometry if symptoms | | | persist. | | |ASHLEY SUNSHINE MD | | |06/26/2017 10:47:05 AM | | |This report has been signed electronically. | | |Number of Addenda: 0 | | |Note Initiated On: 06/26/2017 10:22 AM | | | Letter to: | | | DOUG RIBERA MD | | + + ---+ + +---------+ + + | Performing | Address | City/State/Zipcode | Phone Number | | Organization | | | | + +---------+ + + | [facility] | | | | + +---------+ + + COLONOSCOPY (06/26/2017 10:21 AM PST) + + | Specimen | + + | | + + + + + | Narrative | Performed At | + + + | MRN: | [facility] | | [id number] Date: 06/26/2017Patient Name: Adriana Holman [place] #: | ENDOSCOPY | | [id number] of : 4CSN: [id number] Type: | | | AmbulatoryRoom: GI 3Procedure: ColonoscopyIndications: | | | Screening for colorectal malignant neoplasmProviders: | | | ASHLEY SUNSHINE MD (Doctor), UDAY VIZCARRA RN | | | (Nurse), GAUTAM BRADY, Dry Cans Back Tender | | | (Dry Cans Back Tender)Referring MD: DOUG RIBERA, MDRequesting | | | Provider: Medicines: Monitored Anesthesia | | | CareComplications: No immediate complications.Procedure: | | | Pre-Anesthesia Assessment: - | | | ASA Grade Assessment: II - A patient with mild | | | systemic disease. Prior to the | | | procedure, a History and Physical with | | | airway assessment was performed (see patient record), | | | and patient medications and allergies were reviewed. | | | The risks and benefits of the procedure | | | and the sedation options and risks | | | were discussed. All questions were | | | answered and informed consent was obtained. After | | | reviewing the risks and benefits, the patient was deemed | | | in satisfactory condition to undergo the | | | procedure. Immediately prior to | | | administration of medications, the | | | patient was re-assessed for adequacy to receive | | | sedatives. The heart rate, respiratory rate, oxygen | | | saturations, blood pressure, adequacy of | | | pulmonary ventilation, and response to | | | care were monitored throughout the | | | procedure. The physical status of the | | | patient was re-assessed after the procedure. | | | The Olympus [id number]-[id number] Peds Colonoscope #[id number] was | | | introduced through the anus and advanced to the | | | cecum, identified by appendiceal | | | orifice and ileocecal valve. The quality | | | of the bowel preparation was evaluated using | | | the BBPS ([place] Bowel Preparation Scale) with scores | | | of: Right Colon = 2 (minor amount of residual | | | staining, small fragments of stool | | | and/or opaque liquid, but mucosa seen | | | well), Transverse Colon = 3 (entire mucosa | | | seen well with no residual staining, small fragments of | | | stool or opaque liquid) and Left Colon = 2 (minor | | | amount of residual staining, small | | | fragments of stool and/or opaque | | | liquid, but mucosa seen well). The total BBPS | | | score equals 7.Estimated Blood Loss: Estimated blood | | | loss: none.Findings: The entire examined colon appeared normal | | | on direct and retroflexion views. There was what appeared to be | | | an old surgical anastomosis in the sigmoid colon. No suture | | | was seen The exam was otherwise without abnormality.Impression: | | | - The entire examined colon is normal on direct and | | | retroflexion views. | | | - No specimens collected.Recommendation: - Repeat | | | colonoscopy in 10 years for screening purposes.ASHLEY SUNSHINE | | | 06/26/2017 10:50:45 AMThis report has been signed | | | electronically.Number of Addenda: 0Note Initiated On: 06/26/2017 10:21 | | | [facility] Letter to: DOUG RIBERA MD | | |ASHLEY SUNSHINE MD | | |06/26/2017 10:50:45 AM | | |This report has been signed electronically. | | |Number of Addenda: 0 | | |Note Initiated On: 06/26/2017 10:21 AM | | | Letter to: | | | DOUG RIBERA MD | | + + + + +---------+ + + | Performing | Address | City/State/[facility] | Phone Number | | Organization | | | | + +---------+ + + | [facility] | | | | + +---------+ + + documented in this encounter Visit Diagnoses + + | Diagnosis | + + | Diverticulosis of small intestine without perforation or abscess without bleeding - | | Primary | + + documented in this encounter"
--- OUTSIDE RECORDS SUMMARY | ~2020-05-04 | XMS | Encounter Summary ---
Demographics + + + | Address | [address] | | | [place] [address] | + + + | Home Phone [...] + | Gene Sahil | ECON | [address] | | | | | [place], | | | | | [place] [address] | | + + + + + Care Team Providers + +------+ + | Care Pie Filler Name | Role | Phone | + +------+ + PCP | Unavailable | + +------+ + Encounter Details +--------+ + + + + | Date | Type | Department | Care Team | Description | +--------+ + + + + | 08/09/ | Office | | Note, Outpatient | [...] as of this encounter Progress Notes Interface, Ambulance Officer In - 02/12/2005 12:07 AM PDT [id number] [facility] Date: 08/09/2004 Clinic: Cardiology [facility] Visit Primary Care Physician: Dr. Saman Ribera. Chief Complaint: Followup visit from a cardiology consult for arrhythmia. History of Present Illness: This is a 58-year-old female with history of supraventricular tachycardia, Sjogren's disease, mitral valve prolapse, asthma, fibromyalgia, and liver cysts. She was originally seen by the cardiology consult team at [facility] on July 20, 2004. The patient developed postoperative ectopic atrial tachycardia and was seen by the cardiology consult team. She was originally started on amiodarone and digoxin in June 2004 for abdominal surgery. In the postoperative course, she had atrial tachycardia. The patient has been on amiodarone and digoxin since June 2004. The patient reports that since her discharge on July 23, 2004, she developed another partial SBO and had to be readmitted into the hospital. She had an NG tube placed and was kept n.p.o. She did not require another surgery. The patient has been home for the last 2 weeks. Since her admission to [facility], the patient reports that she is slowly taking p.o. intake. She just had a normal bowel movement yesterday. Overall, she still feels weak and sluggish. She reports no fast racing heart rates. Her fast heart rate usually occurs in postoperative courses. The previous time was 2 years ago when she also had surgery. Otherwise, the patient states that she feels she has skipped beats every now and then but no sustained palpitations unless she is postop. Currently, the patient states that she has no complaints regarding her heart at the moment. Most of her complaints pertain to her GI symptoms. The patient reports that when she was more active, she [place] able [place] and exercise and developed chest pain upon rest after exertion. The patient reports that her primary care doctor is setting her up for a cardiac risk stratification exam but will wait as she is still recovering from her SBO. Past Medical History: Significant for 1. Status post liver cyst with marsupialization on June 29, 2004. 2. History of SVT, less likely ectopic atrial tachycardia. 3. Sjogren's disease. 4. Mitral valve prolapse. 5. Asthma. 6. GERD. 7. Carpel tunnel syndrome. 8. Fibromyalgia. 9. Fibrocystic breast disease. 10. Esophageal dysmotility syndrome. Medications 1. Estrace 0.75 mg patch. 2. Protonix 40 mg p.o. daily. 3. Digitek 250 mg p.o. daily. 4. Combivent, Serevent, Pulmicort, and Flonase. 5. Amiodarone 200 mg p.o. daily. Allergies: CIPRO, WHICH CAUSES A RASH; SULFA DRUGS, WHICH CAUSE SWOLLEN FACE; DYAZIDE, WHICH CAUSES BREAST LUMPS; AND STATINS, WHICH CAUSE ABDOMINAL DISCOMFORT. Social History: The patient is a nondrinker, nonsmoker, does not take alcohol, and lives in [place]. Family History: Positive coronary artery disease history with mother and father who have both had history of CABGs. Review of systems: Other review of systems are negative except for those pertinent in the HPI. Physical Examination Vital Signs: Blood pressure is 122/60; pulse 105, when re-taken in the office it was 88; oxygenation 100% on room air, and weight is 128.2 pounds. General: The patient is alert, appropriately responsive, and interacting. HEENT: Normal Cardiovascular : S1 and S2. JVP is 7 cm. Respirations: Clear to auscultation bilaterally. Abdomen: Positive bowel sounds, soft, nontender with a healing scar across her abdomen. No purulence or erythema. Extremities: No cyanosis, clubbing, or edema. Assessment and Plan: This is a 58-year-old female with history of supraventricular tachycardia who is currently status post a small bowel obstruction and multiple abdominal surgeries over the last 2 months. 1. Supraventricular tachycardia. From the patient's EKG, it appears that she has an ectopic atrial tachycardia, and most likely, it appears to be from a irritable focus. We informed the patient since she does not have palpitations and racing heart rate often to discontinue her digoxin and amiodarone and initiate atenolol at 25 mg p.o. daily. We informed the patient to return to clinic in about 3 months, and we can discuss whether the patient wishes to undergo an electrophysiology study with ablation. We informed the patient if we are able to find the irritable focus, there is an 80% to 90% cure of ablating that focus, and the patient will not have to then be on multiple medications. We also informed the patient that if she has a semielective surgery planned to let us know, so we can adjust her medications appropriately. 2. Cardiac risk stratification. The patient reports that she has had waxing and waning chest pain. She does state that Prozac did help with her chest pain that she thought was more associated with her stress. The patient states her primary care physician is setting her up for a cardiac risk stratification. She did inform us that she did have asthma. Therefore, we will probably not use adenosine. A stress echo would be appropriate. The doctor in [place] can do it, or we can do it at [facility]. The patient also states that she has hypercholesterolemia and has had ill side effects to statins and to Zetia. Finally, the patient will return to clinic in 3 months to determine whether she wishes undergo the electrophysiology study. At this first visit with her and her , they did wish to undergo the EP study after her abdominal complications have improved. The patient was staffed with Dr. Fuentes. Ara Salazar M.D. Gary Fuentes M.D. Professor, Medicine / [id number] / [id number] / [id number] / [id number] cc: Saman Ribera M.D. [facility] [address] [place] [address]. [address] [place] [address] documented i n this encounter Plan of Treatment Not on filedocumented as of this encounter Visit Diagnoses Not on filedocumented in this encounter"
--- OUTSIDE RECORDS SUMMARY | ~2020-05-04 | XMS | Encounter Summary ---
Demographics + + + | Address | [address] | | | [place] [address] | + + + | Home Phone [...] + | Gene Gee | ECON | [address] | | | | | [place], | | | | | [place] [address] | | + + + + + Care Team Providers + +------+ + | Care Derrick Follower Name | Role | Phone | + +------+ + | Antony Ribera MD | PCP | | + +------+ + Encounter Details +--------+ + + + + | Date | Type | Department | Care Team | Description | +--------+ + + + + | 10/02/ | Results/Int | Pulmonary Function | | Postinflammatory | | 2016 | erpretation | Lab at [facility] [address] | | pulmonary fibrosis | | | | [address] | | ([facility]) (Primary Dx) | | | | [facility] | | | | | | [place], [place] | | | | | | [address] | | | | | | [phone] | | | +--------+ + + + [...] + documented as of this encounter Progress Enzo Uribe MD - 10/04/2016 10:58 AM PDT Refer to PFT report. doc umented in this encounter Plan of Treatment Not on filedocumented as of this encounter Procedures + +--------+ + + + | Procedure Name | Priori | Date/Time | Associated Diagnosis | Comments | | | ty | | | | + +--------+ + + + | OR EVAL OF | Routin | 10/04/2016 | Postinflammatory | | | BRONCHOSPASM | e | 10:58 AM | pulmonary fibrosis | | | | | PDT | ([facility]) | | + +--------+ + + + [...] + | Diagnosis | + + | Postinflammatory pulmonary fibrosis ([facility]) - Primary Postinflammatory pulmonary | | fibrosis | + + documented in this encounter"
--- OUTSIDE RECORDS SUMMARY | ~2020-05-04 | XMS | Encounter Summary ---
Demographics + + + | Address | [address] | | | [place] [address] | + + + | Home Phone | | + + + | Preferred Language | Unknown | + + + | Marital Status | | + + + | Buddhist Affiliation | 1013 | + + + | Race | White | + + + | Ethnic Group | Not or | + + + Author + + + | Author | [facility] | | | and [place] | + + + | Organization | [facility] | | [...] Providers + +------+ + | Care Front End Technician Name | Role | Phone | + +------+ + PCP | Unavailable | + +------+ + Encounter Details +--------+ + + + + | Date | Type | Department | Care Team | Description | +--------+ + + + + | 07/29/ | Hospital | [facility] | Zelda Allred DO | Diagnosis unknown; | | 2018 - | Encounter | [facility] | [address] | Atrial flutter with | | | | C[address]LO[address] | [place] [address] | rapid ventricular | | 08/02/ | | [address] | [phone] | response ([facility]); | | 2018 | | [place], [place] | | Chronic cough; | | | | [phone] | | Congestive heart | | | | [phone] | | failure, unspecified | | | | | | congestive heart | | | | | | failure chronicity, | | | | | | unspecified | | | | | | congestive heart | | | | | | failure type ([facility]); | | | | | | Atypical atrial | | | | | | flutter ([facility]); | | | | | | Typical atrial | | | | | | flutter ([facility]); RSV | | | | | | infection | +--------+ + + + + Social [...] + + + | Blood Pressure | 135/66 | 08/02/2017 7:57 PM | | | | | PST | | + + + + + | Pulse | 78 | 08/02/2017 7:57 PM | | | | | PST | | + + + + + | Temperature | 36.8 C (98.2 F) | 08/02/2017 7:57 PM | | | | | PST | | + + + + + | Respiratory Rate | 16 | 08/02/2017 7:57 PM | | | | | PST | | + + + + + | Oxygen Saturation | - | - | | + + + + + | Inhaled Oxygen | - | - | | | Concentration | | | | + + + + + | Weight | 71.7 kg (158 lb) | 08/02/2017 7:57 PM | | | | | PST | | + + + + + | Height | 165.1 cm (5' 5") | 08/02/2017 7:57 PM | | | | | PST | | + + + + + | Body Mass Index | 26.29 | 08/02/2017 7:57 PM | | | | | PST | | + + + + + documented in this encounter Discharge Summaries Andre Ward MD - 08/02/2017 10:32 AM PSTFormatting of this note might be different fro m the original. Discharge Summaries by Andre Ward MD at 08/02/17 1032 Author: Andre Ward MD Service: Hospitalist Author Type: Physician Filed: 08/05/17 1738 Date of Service: 08/02/17 1032 Status: Signed Infantry Weapons Officer: Andre Ward MD (Physician) Patient: Adriana Flynn : 1945 Date of Admission: 07/29/2017 Date of Discharge: 08/02/2017 Treatment Team: Consulting Physician: Gurpreet Fall MD Consulting Physician: Martin Kelley MD Admitting Provider: Zelda Allred DO Discharging Provider: Andre Ward MD Discharge Diagnoses: Principal Problem: Atrial flutter (HCC) Active Problems: Congestive heart failure of unknown etiology (HCC) Chronic anticoagulation RSV infection Paroxysmal atrial fibrillation (HCC) Mitral valve prolapse Moderate tricuspid regurgitation by prior echocardiogram Resolved Problems: Dyspnea Mild asthma without complication Atrial tachycardia (HCC) Procedures Performed: Chief Complaint: Tachycardia (Afib with RVR new onset per EMS) Hospital Course: Adriana Flynn is a 71 y.o. female who was admitted on 07/29/2017 with complaints of palpitatio ns and shortness of breath. She was found to be in a-flutter and had unsuccessful cardiovers ion x 2. The patient has had ablations in the past and she was off of tikosyn for about 6 mo nths prior to arrival. She was admitted to the hospital. She was seen by cardiology. Her B efren was changed to bisoprolol. She was restarted on tikosyn with good response. Her heart rate is better contro lled now. She also was found to have RSV upper respiratory tract infection. Throughout her course she has improved. Discharge Exam and Data: Vital Signs: BP 148/84 (BP Location: Right leg) | Pulse 67 | Temp 97.7 F (36.5 C) (Oral) | Resp 2 0 | Ht 1.651 m (5' 5") | Wt 71.7 kg (158 lb) | SpO2 98% | ? No | BMI 26.29 kg/m I&O Last 3 Shifts: 07/31 1900 - 08/02 0659 In: 1102 [P.O.:1020; I.V.:82] Out: 1800 [Urine:1800] Physical Examination: Constitutional: Alert and oriented to person, place, and time. Appears well-developed and w ell-nourished. HEENT: Neck supple, no JVD, non icteric sclera. Cardiovascular: Normal rate, regular rhythm, normal heart sounds with S1 and S2, and intact distal pulses. Exam reveals no appreciated gallop or friction rub. No murmur heard. Pulmonary/Chest: Effort normal and breath sounds normal. No stridor. No respiratory distres s. no wheezes. no rales. exhibits no tenderness. There is a slight cough with inspiration. Abdominal: Soft. Bowel sounds are normal. exhibits no distension and no mass. There is no t enderness. There is no rebound and no guarding. Extremeties/Musculoskeletal: Normal range of motion.exhibits no tenderness. exhibits no ed mynor. Neurological: Alert and oriented to person, place, and time. Has normal reflexes. No cran ial nerve deficit. Exhibits normal muscle tone. Coordination normal. Skin: Skin is warm and dry. No rash noted. No erythema. No pallor. Psychiatric: Has a normal mood and affect given situation. Behavior is normal. Judgment nor mal for patient. Recent Labs Recent Labs Lab 08/02/17 0503 08/01/17 0403 07/31/17 0515 WBC 9.08 10.54 7.11 HGB 12.6 13.6 14.6 HCT 36.9 38.9 41.9 PLT 202 199 177 Recent Labs Lab 08/02/17 0750 08/01/17 0403 07/30/17 0557 NA 139 142 134* K 4.1 4.9 3.7 CL 107 110* 102 CO2 27 28 22* BUN 18 18 10 CREATININE 0.83 0.7 0.7 Recent Labs Lab 07/29/17 1903 INR 1.7 Results Procedure Component Value Units Date/Time Respiratory Filmarray [[id number]] (Abnormal) Collected: 07/30/17 1152 Specimen: Nasal Swab Updated: 07/30/17 1426 ADENOVIRUS Not Detected CORONAVIRUS 229E Not Detected CORONAVIRUS HKU1 Not Detected CORONAVIRUS NL63 Not Detected CORONAVIRUS OC43 Not Detected HUMAN METAPNEUMOVIRUS Not Detected HUMAN RHINO/ENTERO Not Detected INFLUENZA A Not Detected INFLUENZA B Not Detected PARAINFLUENZA 1 Not Detected PARAINFLUENZA 2 Not Detected PARAINFLUENZA 3 Not Detected PARAINFLUENZA 4 Not Detected RESP SYNCYTIAL VIRUS DETECTED (A) BORDETELLA PERTUSSIS Not Detected CHLAMYDIAE PNEUMONIAE Not Detected MYCOPLASMA PNEUMONIAE Not Detected RESP PANEL INTERP Testing performed by Molecular Methodology Recent Radiology Results Xr Chest 1 View Result Date: 07/31/2017 1. Persistent subtle infiltrate perhaps with minimal effusion in the right lung base statu s post right mastectomy with breast prosthesis. Electronically signed by hCon Hansen MD o n 07/31/2017 6:51 AM Outstanding Issues: Patient to follow with her PCP and Dr. Kelley Discharge Information: Follow up: Saman Ribera MD [address] [phone] Aflutter started on tikosyn. Martin Kelley MD [address] [facility] [id number] In 2 months follow up atrial flutter/fibrillation Medication List START taking these medications bisoprolol 5 MG tablet QTY: 60 tablet Refills: 1 For diagnoses: Typical atrial flutter (HCC) Commonly known as: ZEBETA Take 1 tablet by mouth 2 (two) times daily. dofetilide 500 MCG capsule QTY: 180 capsule Refills: 3 For diagnoses: Atypical atrial flutter (HCC) Commonly known as: TIKOSYN Take 1 capsule by mouth every 12 (twelve) hours. lisinopril 5 MG tablet QTY: 30 tablet Refills: 0 Commonly known as: ZESTRIL Take 1 tablet by mouth every evening. predniSONE 20 MG tablet QTY: 4 tablet Refills: 0 Commonly known as: DELTASONE Take 2 tablets by mouth daily with breakfast for 10 days. Start taking on: 08/03/2017 CONTINUE taking these medications budesonide 180 MCG/ACT inhaler Refills: 0 Commonly known as: PULMICORT carboxymethylcellulose 0.5 % Soln Refills: 0 Commonly known as: REFRESH PLUS ezetimibe 10 MG tablet Refills: 0 Commonly known as: ZETIA fluticasone 50 MCG/ACT nasal Refills: 0 Commonly known as: FLONASE ipratropium 0.03 % nasal Refills: 0 Commonly known as: ATROVENT rabeprazole 20 MG tablet Refills: 0 Commonly known as: ACIPHEX rivaroxaban 20 MG tablet Refills: 0 Commonly known as: XARELTO tiotropium 18 MCG inhalation capsule Refills: 0 Commonly known as: SPIRIVA You might also be taking other medications not listed above. If you have questions about an y of your other medications, talk to the person who prescribed them or your Primary Care Pro vider. STOP taking these medications furosemide 20 MG tablet Commonly known as: LASIX metoprolol 50 MG tablet Commonly known as: LOPRESSOR potassium chloride SA 20 MEQ tablet Commonly known as: NATALIE BOOTH-QAUN Where to Get Your Medications These medications were sent to [facility] - [place], [place] - [address], [address] [place] [address], [address] [address] dofetilide 500 MCG capsule You can get these medications from any pharmacy Bring a paper prescription for each of these medications bisoprolol 5 MG tablet lisinopril 5 MG tablet predniSONE 20 MG tablet Disposition: Home Condition: Stable Code Status: Full Code Discharge took 51 minutes, to include final examination, discussion of admission, and prepa ration of prescriptions, instructions for on-going care, follow-up and documentation of disc harge summary. Andre Ward MD 1:56 PM documented in this e ncounter Medications at Time of Discharge + + [...] documented as of this encounter Progress Notes Conversion Transaction, Provider Unknown - 08/02/2017 8:24 PM PSTFormatting of this note m ight be different from the original. Nurse Progress Note by Sumaya Hollins RN at 08/02/172023 Author: Sumaya Hollins RN Service: (none) Author Type: Registered Nurse Filed: 08/02/172024 Date of Service: 08/02/172023 Status: Signed [employer] We[employer] Officer: Sumaya Hollins RN (Registered Nurse) Pt QTc .48 at 2000. Pt d/c'd, educated, no further questions at this time. onver el Transaction, Provider Unknown - 08/02/2017 11:08 AM PST Case Management by Leigh Power RN at 08/02/171107 Author: Leigh Power RN Service: (none) Author Type: Registered Nurse Filed: 08/02/17 1202 Date of Service: 08/02/171107 Status: Addendum [employer] Weapons Officer: Leigh Power RN (Registered Nurse) Related Notes: Original Note by Leigh Power RN (Registered Nurse) filed at 08/02/17 110 9 Pt to d/c home today on Tikosyn. MURIEL Phillip has sent e-script to [facility]. Pt has no ot her needs. DIPTI signed Benita uMartin correa MD - 08/02/2017 7:33 AM PST Progress Notes by Martin Kelley MD at 08/02/17732 Author: Martin Kelley MD Service: Cardiology Author Type: Physician Filed: 08/02/1736 Date of Service: 08/02/17732 Status: Signed [employer] Weapons Officer: Martin Kelley MD (Physician) [facility] PATIENT NAME: Adriana Flynn : 1945: AGE: 71 y.o. ADMISSION DATE: 07/29/2017 Hospital Day # 3 Date of Service: 08/02/2017 Principal Hospital Problem: Atrial flutter (HCC) Code Status: Full Code PRIMARY CARE: SAMAN Kelley MD [facility] PROGRESS NOTE Events since last note: She has maintained sinus rhythm for the most part. Apparently has had some palpitations lasting for a few seconds with heart rates in the 130s. She had sinus bradycardia this morning heart rates into the 50s, unassociated with any symptoms. She loo ks better overall. She is starting to mobilize sputum. Recommendations: Stop Lasix Add lisinopril 5 g daily at bedtime Decrease bisoprolol to 5 mg twice per day Discharge home later tonight, but her 2 hours after the fifth dose of dofetilide. I can see her in 2 months as an outpatient. ASSESSMENT AND PLAN: Patient Active Problem List Diagnosis Date Noted Moderate tricuspid regurgitation by prior echocardiogram 08/02/2017 Moderate MR and TR on echo this admission. Add lisinopril for afterload reduction. Give n nocturnally. Atrial tachycardia (HCC) 07/31/2017 Hx of s/p successful ablation of stacey tach 2004. 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 Successfully suppressed with dofetilide- however Tikosyn was discontinued 04/[address] Elijah Whalen because of mendez dequate control of symptoms and reported atrial fibrillation during eye surgery. Dofetilide was resumed on July 31, 2017 and she converted from atrial fibrillation back to sinus rh ythm after the first dose. Continue dofetilide indefinitely. Paroxysmal atrial fibrillation (HCC) 07/31/2017 Preserved LV systolic function EF 55% on most recent echo with moderately dilated LA. Con tinues on Xarelto with no signs or symptoms of bleeding. Continue Bisoprolol for rate contr ol, given underlying asthma. Lower the dose to 5 mg twice a day since she has some sinus br adycardia. She can take 5-10 mg if needed for fast heart rates (pill in a pocket approach) . Continue Dofetilide 500mcg BID. I warned her to avoid any medicines that prolong the QT interval. She converted back to sinus after the first dose. Her chads 2 vascular score is 3. From my perspective, she may be safely discharged tonight after the fifth dose of dofeti lide. I can see her in 2 months. Mitral valve prolapse 07/31/2017 Discovered 20 years ago. 07/23/2017 TTE Impression 1. Atrial fibrillation with rapid ventricular response. 2. The left ventricle is normal in size, wall thickness and systolic function EF 55%. 3. The right ventricle is normal in size and function. 4. Moderate mitral regurgitation and moderately enlarged left atrium. 5. Moderate tricuspid regurgitation with no pulmonary hypertension. 6. There is no pericardial effusion. Lisinopril 5 mg daily at bedtime will be added to treat the moderate MR and TR. That dose should be increased as an outpatient if she tolerates it. Mild asthma without complication 07/30/2017 RSV infection 07/30/2017 Atrial flutter (HCC) 07/29/2017 Congestive heart failure of unknown etiology ([facility]) 07/29/2017 Chronic anticoagulation 07/29/2017 Dyspnea 07/29/2017 SCHEDULED MEDS: bisoprolol 5 mg Oral BID dofetilide 500 mcg Oral 2 times per day ezetimibe 10 mg Oral Daily guaiFENesin 600 mg Oral BID ipratropium 1 spray Each Nare TID lisinopril 5 mg Oral QPM mometasone 220 mcg Inhalation Daily pantoprazole 40 mg Oral QAM AC predniSONE 40 mg Oral Daily with breakfast rivaroxaban 20 mg Oral Daily with dinner sodium chloride 10 mL Intravenous 2 times per day tiotropium 18 mcg Inhalation Daily Laboratory values which I reviewed 08/02/2017 are as follows: LABS: Recent Labs Lab 08/02/17 0503 08/01/17 0403 07/31/17 0515 WBC 9.08 10.54 7.11 RBC 4.08 4.34 4.66 HGB 12.6 13.6 14.6 HCT 36.9 38.9 41.9 MCV 90.4 89.6 89.9 MCH 30.8 31.3 31.3 MCHC 34.1 34.9 34.8 RDW 50.3 48.1 47.7 PLT 202 199 177 MPV 10.8 10.1 10.4 DIFFTYPE AUTOMATED AUTOMATED AUTOMATED Recent Labs Lab 08/02/17 0503 08/01/17 0403 07/31/17 0515 07/30/17 1213 07/30/17 0558 07/30/17 0557 07/29/17 1903 WBC 9.08 10.54 7.11 -- -- 7.64 7.16 HGB 12.6 13.6 14.6 -- -- 14.3 14.4 HCT 36.9 38.9 41.9 -- -- 41.4 42.9 NA -- 142 -- -- -- 134* 134* K -- 4.9 -- -- -- 3.7 4.2 CL -- 110* -- -- -- 102 101 CO2 -- 28 -- -- -- 22* 23 BUN -- 18 -- -- -- 10 11 INR -- -- -- -- -- -- 1.7 CKTOTAL -- -- -- -- -- -- 81 CKMB -- -- -- -- -- -- <1.0 TROPONINI -- -- -- 0.023 0.025 -- -- OBJECTIVE LATEST VITALS: BP 148/76 (BP Location: Right leg) | Pulse 73 | Temp 98 F (36.7 C) (O ral) | Resp 18 | Ht 1.651 m (5' 5") | Wt 71.7 kg (158 lb) | SpO2 95% | ? N o | BMI 26.29 kg/m I/O s (this shift): No intake/output data recorded. Vital sign ranges for last 24hrs: Input and output for last 24hrs: Temp: [97.5 F (36.4 C)-98.1 F (36.7 C)] 98 F (36.7 C) Heart Rate: [62-73] 73 Resp: [18-20] 18 BP: (114-148)/(57-76) 148/76 SpO2 Av.5 % Min: 95 % Max: 97 % could not be evaluated. This SmartLink does not work with rows of the type: 07/31 1899 - 08/02 658 In: 1102 [P.O.:1020; I.V.:82] Out: 1800 [Urine:1800] REVIEW OF SYSTEMS A 10-point review of systems was performed and is negative except for the pertinent positiv es noted in the HPI. PHYSICAL EXAM: Admit Weight: Weight: 72.6 kg (160 lb) Current weight: Weight: 71.7 kg (158 lb) General Appearance: Alert, oriented, cooperative, no distress, appears stated age . Looks better. Still has a cough. HEENT: Extraocular movements intact. Pupils round and reactive. No jaundice. NECK: No JVD, No lymphadenopathy. Trachea is at midline. CARDIAC: Normal S1 and S2 heart sounds. Soft systolic murmur at the left sternal border. No rubs or gallops. Non-displaced, non-sustained apical impulse. CHEST: Normal symmetrical chest excursion. Diminished bilateral air entry with no crackles or wheezing. Somewhat better air entry than previously. ABDOMEN: Non tender, non distended, bowel sounds present, no organomegaly. EXTREMITIES: 2+ pulses radial and pedal, symmetric. NEURO: No focal deficits. SKIN: No bruises or rash. Warm and dry. Signed by: Martin Kelley 08/02/2017, 7:33 AM onversion Transact ion, Provider Unknown - 08/02/2017 5:40 AM PSTFormatting of this note might be different fr om the original. Nurse Progress Note by Julia Benjamin RN at 08/02/17539 Author: Julia Benjamin RN Service: (none) Author Type: Registered Nurse Filed: 08/02/1706 Date of Service: 08/02/17539 Status: Addendum [employer] Weapons Officer: Julia Benjamin RN (Registered Nurse) Related Notes: Original Note by Julia Benjamin RN (Registered Nurse) filed at 08/02/17 05 41 Pt's QTc is 0.407 this am. Julia Benjamin RN onver el Transaction, Provider Unknown - 08/01/2017 9:52 PM PST Nurse Progress Note by Julia Benjamin RN at 08/01/172151 Author: Julia Benjamin RN Service: (none) Author Type: Registered Nurse Filed: 08/01/172153 Date of Service: 08/01/172151 Status: Addendum [employer] Weapons Officer: Julia Benjamin RN (Registered Nurse) Related Notes: Original Note by Julia Benjamin RN (Registered Nurse) filed at 08/01/17 21 53 Tikosyn given at 1900. QTc is 0.481 @2130. Julia Benjamin RN uMartin correa MD - 08/01/2017 2:33 PM PST Progress Notes by Martin Kelley MD at 08/01/17 1433 Author: Martin Kelley MD Service: Cardiology Author Type: Physician Filed: 08/01/17 1436 Date of Service: 08/01/17 1433 Status: Signed Infantry Weapons Officer: Martin Kelley MD (Physician) [facility] PATIENT NAME: Adriana Flynn : 1945: AGE: 71 y.o. ADMISSION DATE: 07/29/2017 Hospital Day # 2 Date of Service: 08/01/2017 Principal Hospital Problem: Atrial flutter (HCC) Code Status: Full Code PRIMARY CARE: SAMAN Fisher [facility] ELECTROPHYSIOLOGY [facility] PROGRESS NOTE Events since last note: She converted back to sinus rhythm after the first dose of dofetili de. Feels much better today. There've been no other specific complaints. She will be angel tored until 5 doses of dofetilide and then she will be sent home, hopefully tomorrow night. No symptoms of angina or CHF reported. ASSESSMENT AND PLAN: Patient Active Problem List Diagnosis Date Noted Atrial tachycardia (HCC) 07/31/2017 Hx of s/p successful ablation of stacey tach 2004. 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 Successfully suppressed with dofetilide- however Tikosyn was discontinued 04/[address] Elijah Whalen because of mendez dequate control of symptoms and reported atrial fibrillation during eye surgery. Dofetilide was resumed on July 31, 2017 and she converted from atrial fibrillation back to sinus rh ythm after the first dose. Paroxysmal atrial fibrillation (HCC) 07/31/2017 Preserved LV systolic function EF 55% on most recent echo with moderately dilated LA. Con tinues on Xarelto with no signs or symptoms of bleeding. Continue Bisoprolol for rate contr ol, given underlying asthma. Continue Dofetilide 500mcg BID. She converted back to sinus a fter the first dose. Her chads 2 vascular score is 3. Mitral valve prolapse 07/31/2017 Discovered 20 years ago. 07/23/2017 TTE Impression 1. Atrial fibrillation with rapid ventricular response. 2. The left ventricle is normal in size, wall thickness and systolic function EF 55%. 3. The right ventricle is normal in size and function. 4. Moderate mitral regurgitation and moderately enlarged left atrium. 5. Moderate tricuspid regurgitation with no pulmonary hypertension. 6. There is no pericardial effusion. Mild asthma without complication 07/30/2017 RSV infection 07/30/2017 Atrial flutter (HCC) 07/29/2017 Congestive heart failure of unknown etiology (HCC) 07/29/2017 Chronic anticoagulation 07/29/2017 Dyspnea 07/29/2017 SCHEDULED MEDS: bisoprolol 10 mg Oral BID dofetilide 500 mcg Oral 2 times per day ezetimibe 10 mg Oral Daily [START ON 08/02/2017] furosemide 20 mg Oral Daily guaiFENesin 600 mg Oral BID ipratropium 1 spray Each Nare TID mometasone 220 mcg Inhalation Daily pantoprazole 40 mg Oral QAM AC predniSONE 40 mg Oral Daily with breakfast rivaroxaban 20 mg Oral Daily with dinner sodium chloride 10 mL Intravenous 2 times per day tiotropium 18 mcg Inhalation Daily LABS: Recent Labs Lab 08/01/17 0403 07/31/17 0515 07/30/17 0557 WBC 10.54 7.11 7.64 RBC 4.34 4.66 4.57 HGB 13.6 14.6 14.3 HCT 38.9 41.9 41.4 MCV 89.6 89.9 90.5 MCH 31.3 31.3 31.2 MCHC 34.9 34.8 34.4 RDW 48.1 47.7 48.6 PLT 199 177 141* MPV 10.1 10.4 10.1 DIFFTYPE AUTOMATED AUTOMATED AUTOMATED Recent Labs Lab 08/01/17 0403 07/31/17 0515 07/30/17 1213 07/30/17 0558 07/30/17 0557 07/29/17 1903 WBC 10.54 7.11 -- -- 7.64 7.16 HGB 13.6 14.6 -- -- 14.3 14.4 HCT 38.9 41.9 -- -- 41.4 42.9 NA 142 -- -- -- 134* 134* K 4.9 -- -- -- 3.7 4.2 CL 110* -- -- -- 102 101 CO2 28 -- -- -- 22* 23 BUN 18 -- -- -- 10 11 INR -- -- -- -- -- 1.7 CKTOTAL -- -- -- -- -- 81 CKMB -- -- -- -- -- <1.0 TROPONINI -- -- 0.023 0.025 -- -- OBJECTIVE LATEST VITALS: BP 132/70 (BP Location: Right leg) | Pulse 62 | Temp 97.7 F (36.5 C) (Oral) | Resp 20 | Ht 1.651 m (5' 5") | Wt 73.5 kg (162 lb) | SpO2 97% | ? No | BMI 26.96 kg/m I/O s (this shift): I/O this shift: In: 420 [P.O.:420] Out: - Vital sign ranges for last 24hrs: Input and output for last 24hrs: Temp: [97.7 F (36.5 C)-98.1 F (36.7 C)] 97.7 F (36.5 C) Heart Rate: [62-119] 62 Resp: [16-20] 20 BP: (119-132)/(60-70) 132/70 SpO2 Av.3 % Min: 93 % Max: 98 % could not be evaluated. This SmartLink does not work with rows of the type: 07/30 1899 - 08/01 0659 In: 682 [P.O.:600; I.V.:82] Out: 1800 [Urine:1800] REVIEW OF SYSTEMS A 10-point review of systems was performed and is negative except for the pertinent positiv es noted in the HPI. PHYSICAL EXAM: Admit Weight: Weight: 72.6 kg (160 lb) Current weight: Weight: 73.5 kg (162 lb) General Appearance: Alert, oriented, cooperative, no distress, appears stated age HEENT: Extraocular movements intact. Pupils round and reactive. No jaundice. NECK: No JVD, No lymphadenopathy. Trachea is at midline. CARDIAC: Normal S1 and S2 heart sounds. No murmurs, rubs, or gallops. Non-displaced, non-tong stained apical impulse. CHEST: Normal symmetrical chest excursion. Good bilateral air entry with no crackles or whe ezing. ABDOMEN: Non tender, non distended, bowel sounds present, no organomegaly. EXTREMITIES: 2+ pulses radial and pedal, symmetric. NEURO: No focal deficits. SKIN: No bruises or rash. Warm and dry. She is in no distress. Feels better today after converting back to sinus rhythm Signed by: Martin Kelley 08/01/2017, 2:35 PM Andre Cifuentes MD - 08/01/2017 1:37 PM PST Progress Notes by Andre Ward MD at 08/01/17 1254 Author: Andre Ward MD Service: Hospitalist Author Type: Physician Filed: 08/01/17 1988 Date of Service: 08/01/17 6067 Status: Signed [employer] Weapons Officer: Andre Ward MD (Physician) [facility] Service: Hospitalist Progress Note Pt: Adriana Flynn AGE/SEX: 71 y.o. female ROOM: [facility]/4452-1 : 1945 PCP: SAMAN RIBERA ADMIT DATE: 07/29/2017 TODAY'S DATE: 08/01/2017 Hospital Day/Hospital Course: LOS: 2 days Per prior notes "71-year-old female with a history of atrial flutter status post unsuccessf ul cardioversion 2 transferred from outside facility with palpitations and shortness of br eath. Patient has seen Dr. Whalen at [facility] HEALTHCARE and has had ablation 2. She stopped taking Gabe syn 6 months ago. She is on Xarelto. Cardiology consulted" SUBJECTIVE: Patient seen and examined. She states she continues to feels better today. She did have on e episode of palpitations which only lasted a few seconds. States her heart rate is better c ontrolled today. No complaint of chest pain, SOB, SPRINGER. No cough on recumbency. Had no ortho pnea or PND. No Abdominal pain, N/V or fever. No dizziness or lightheadedness. Scheduled Medications: bisoprolol 10 mg Oral BID dofetilide 500 mcg Oral 2 times per day ezetimibe 10 mg Oral Daily furosemide 20 mg Intravenous Daily guaiFENesin 600 mg Oral BID ipratropium 1 spray Each Nare TID mometasone 220 mcg Inhalation Daily pantoprazole 40 mg Oral QAM AC predniSONE 40 mg Oral Daily with breakfast rivaroxaban 20 mg Oral Daily with dinner sodium chloride 10 mL Intravenous 2 times per day tiotropium 18 mcg Inhalation Daily Continuous Infusions PRN Medications acetaminophen OR acetaminophen, benzocaine-menthol, HYDROcodone-acetaminophen OR HY DROcodone-acetaminophen, levalbuterol, magnesium sulfate OR magnesium sulfate OR mag nesium sulfate, metoprolol, ondansetron OR ondansetron, phosphorus OR sodium phospha te IVPB 15 mmol OR sodium phosphate IVPB 30 mmol, polyethylene glycol, potassium OR potassium OR potassium OR potassium chloride OR potassium chloride OR potass ium chloride, sodium chloride, zolpidem Allergy: Allergies Allergen Reactions Cardizem [Diltiazem] Hives Localized near IV site Celecoxib Other (See Comments) unknown Ciprofloxacin Rash Flecainide Other (See Comments) unknown Propafenone Other (See Comments) Unknown Crestor [Rosuvastatin] Muscle Pain "muscle spasms" Gluten Meal GI Distress Milk-Related Compounds GI Distress Other-Drug GI Distress "kapidex" OBJECTIVE: Vitals: Patient Vitals for the past 24 hrs: BP Temp Temp src Pulse Resp SpO2 Weight 08/01/17 1132 132/70 97.7 F (36.5 C) Oral 62 20 97 % - 08/01/17 0802 126/60 98.1 F (36.7 C) Oral 71 18 96 % - 08/01/17 0326 125/66 98 F (36.7 C) Oral 62 16 98 % 73.5 kg (162 lb) 07/31/17 2318 130/67 97.7 F (36.5 C) Oral 119 18 93 % - 07/31/17 1916 119/67 98 F (36.7 C) Oral 108 18 95 % - 07/31/17 1521 124/63 98.1 F (36.7 C) Oral 80 18 93 % - I&O Detailed Table: Intake/Output Summary (Last 24 hours) at 08/01/17 1337 Last data filed at 08/01/17 1100 Gross per 24 hour Intake 1102 ml Output 1100 ml Net 2 ml Patient Vitals for the past 96 hrs: Weight 08/01/17 0326 73.5 kg (162 lb) 07/31/17 0342 71.2 kg (157 lb) 07/30/17 0203 72.4 kg (159 lb 9.8 oz) 07/29/17 1844 72.6 kg (160 lb) Physical Examination: Constitutional: Awake, interactive. Appears well-developed and well-nourished. She is lying in bed comfortably. HEENT: Neck supple, no JVD, non icteric sclera. Cardiovascular: Irregular rhythm. Regular rate. Exam reveals no appreciated gallop or fric tion rub. No murmur heard. Pulmonary/Chest: Effort normal and breath sounds normal. No stridor. No respiratory distres s. no wheezes. no rales. exhibits no chest wall tenderness. Abdominal: Soft. Bowel sounds are normal. exhibits no distension and no mass. Mild wheezing present on expiration. Cough with expiration. Extremeties/Musculoskeletal: Normal range of motion for patient. exhibits no tenderness. e xhibits no edema. Neurological: Alert and oriented to person, place, and time. No cranial nerve deficit celestino reciated. Exhibits normal muscle tone. Skin: Skin is warm and dry. No rash noted. No erythema. No pallor. Psychiatric: Has a normal mood and affect given situation. LABS: Recent Labs Lab 08/01/17 0403 07/31/17 0515 07/30/17 0557 WBC 10.54 7.11 7.64 HGB 13.6 14.6 14.3 HCT 38.9 41.9 41.4 PLT 199 177 141* NEUTOPHILPCT 76.43 77.08 67.65 MONOPCT 8.23 10.49 11.11 Recent Labs Lab 08/01/17 0403 07/30/17 0557 07/29/17 1903 NA 142 134* 134* K 4.9 3.7 4.2 CL 110* 102 101 CO2 28 22* 23 BUN 18 10 11 CREATININE 0.7 0.7 1.0 PROT -- 5.8* 6.5 BILITOT -- 1.3 1.2 ALT -- 39 42 AST -- 26 45 Phosphorus: Lab Results Component Value Date PHOS 2.3 07/30/2017 Invalid input(s): LABALBU Recent Labs Lab 08/01/17 0403 07/30/17 0557 07/29/17 2326 MG 2.4 1.7 1.6* Recent Labs Lab 07/29/17 1903 APTT 29 INR 1.7 Recent Labs Lab 07/30/17 1217 TSH 0.852 Recent Labs Lab 07/30/17 1213 07/30/17 0558 07/29/17 1903 CKTOTAL -- -- 81 TROPONINI 0.023 0.025 -- CKMBINDEX -- -- UNABLE TO CALCULATE Results Procedure Component Value Units Date/Time Respiratory Filmarray [[id number]] (Abnormal) Collected: 07/30/17 1152 Specimen: Nasal Swab Updated: 07/30/17 1426 ADENOVIRUS Not Detected CORONAVIRUS 229E Not Detected CORONAVIRUS HKU1 Not Detected CORONAVIRUS NL63 Not Detected CORONAVIRUS OC43 Not Detected HUMAN METAPNEUMOVIRUS Not Detected HUMAN RHINO/ENTERO Not Detected INFLUENZA A Not Detected INFLUENZA B Not Detected PARAINFLUENZA 1 Not Detected PARAINFLUENZA 2 Not Detected PARAINFLUENZA 3 Not Detected PARAINFLUENZA 4 Not Detected RESP SYNCYTIAL VIRUS DETECTED (A) BORDETELLA PERTUSSIS Not Detected CHLAMYDIAE PNEUMONIAE Not Detected MYCOPLASMA PNEUMONIAE Not Detected RESP PANEL INTERP Testing performed by Molecular Methodology RADIOLOGY: Xr Chest 1 View Result Date: 07/31/2017 1. Persistent subtle infiltrate perhaps with minimal effusion in the right lung base statu s post right mastectomy with breast prosthesis. Electronically signed by Chon Hansen MD o n 07/31/2017 6:51 AM PROBLEM LIST Principal Problem: Atrial flutter (HCC) Active Problems: Congestive heart failure of unknown etiology (HCC) Chronic anticoagulation Dyspnea Mild asthma without complication RSV infection Atrial tachycardia (HCC) Paroxysmal atrial fibrillation (HCC) Mitral valve prolapse ASSESSMENT & PLAN Chronic atrial flutter with RVR. Heart rate is controlled today and the patient is more com fortable. Will continue Xarelto. Continue with bisoprolol. Amiodarone infusion completed. Di goxin stopped today. Tikosyn has been restarted. She needs 5 doses total for loading dose. If heart rate is not controlled will require pacemaker placement. Cardiac enzymes are negati ve. - monitor electrolytes closely. Asthma with mild exacerbation with RSV. Will continue on Xopenex prn. Will continue Asmanex and Spiriva. We will start patient on prednisone for 5 days total. Today is day 3. Respirat ory PCR panel shows respiratory syncytial virus. - droplet precautions. She is improving. Hypertension. Blood pressure is controlled on bisoprolol Acute on chronic diastolic congestive heart failure. Will switch Lasix 20mg IV today to PO lasix. Patient remains in negative fluid balance. Echocardiogram in July 2017 showed EF of 55 percent with moderate mitral regurgitation a nd moderate tricuspid regurgitation. Deep vein thrombosis prophylaxis is not needed as patient is anticoagulated. Gastroesophageal reflux disease. Will continue Protonix. Dyspnea. Improved. Multifactorial including secondary to acute on chronic diastolic CHF and RSV. Andre Ward MD 08/01/2017 1:37 PM Greater than 35 minutes spent today overall in coordination of care, seeing and managing abena leyva, review of data, coordination with staff, coordination with involved consultants, and including any scheduled multidisciplinary rounding focused on the patient with 50 percent or more spent seeing and managing patient and counseling/coordination. Dictation software, Solar[employer], used which may contain error for similar sounding words even af ter review. Personal communication requested for any clarification. Portions of this chart may have been copied from previous notes for continuity of care purp ose onversion Transacti on, Provider Unknown - 08/01/2017 12:01 PM PSTFormatting of this note might be different fro m the original. Case Management by Leigh Power RN at 08/01/17 1201 Author: Leigh Power RN Service: (none) Author Type: Registered Nurse Filed: 08/01/17 1202 Date of Service: 08/01/17 1201 Status: Signed [employer] Weapons Officer: Leigh Power RN (Registered Nurse) Pt currently on Tikosyn and will d/c on it, will continue to f/u, tentative d/c tomorrow. P t already on established on Xarelto Benita onver el Transaction, Provider Unknown - 08/01/2017 10:26 AM PST Nurse Progress Note by Zari Bingham RN at 08/01/17 1026 Author: Zari Bingham RN Service: (none) Author Type: Registered Nurse Filed: 08/01/17 1026 Date of Service: 08/01/17 1026 Status: Signed [employer] We[employer] Officer: Zari Bingham RN (Registered Nurse) Tikosyn given at 0800, QTC is 0.422 at 1020. Zari Bingham RN 08/01/17 Aisha Campa 08/01/2017 7:45 AM PST . Progress Notes by Aisha Fisher NP at 08/01/17 0745 Author: Aisha Fisher NP Service: Cardiology Author Type: Nurse Practitioner Filed: 08/01/17 0948 Date of Service: 08/01/17 0745 Status: Signed [employer] We[employer] Officer: Aisha Fisher NP (Nurse Practitioner) [facility] PATIENT NAME: Adriana Flynn : 1945: AGE: 71 y.o. ADMISSION DATE: 07/29/2017 Hospital Day # 2 Date of Service: 08/01/2017 Principal Hospital Problem: Atrial flutter (HCC) Code Status: Full Code PRIMARY CARE: No primary care provider on file. Martin Fisher [facility] PROGRESS NOTE Events since last note: Doing well overnight. Converted to NSR after 1st dose of Tikosyn, QTC remains stable at 491 Discontinue Digoxin. Continue Bisoprolol 10mg BID for now. Potassium 4.9, Magnesium 2.4 DISPO- Continue inpatient loading of Dofetilide. ASSESSMENT AND PLAN: Patient Active Problem List Diagnosis Date Noted Atrial tachycardia (HCC) 07/31/2017 Hx of s/p successful ablation of stacey tach 2004. 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 Successfully suppressed with dofetilide- however Tikosyn was discontinued 04/[address] Elijah Whalen because of mendez dequate control of symptoms and reported atrial fibrillation during eye surgery Paroxysmal atrial fibrillation (HCC) 07/31/2017 Preserved LV systolic function EF 55% on most recent echo with moderately dilated LA. Con tinues on Xarelto with no signs or symptoms of bleeding. Rate Control has improved. Will c hange Metoprolol to Bisoprolol for more cardioselectivity, given underlying asthma. She has been doing well overall and feeling improved from a respiratory standpoint. Outside of this hospital admission, she does report just minutes of arrhythmia while wearing event monitor w ith heart rate up to 240 bpm. Discontinue amiodarone- she has not even been loaded completel y on Amiodarone therapy. Reload Dofetilide 500mcg BID, starting this evening. She tolerated this dosage earlier this year with good suppression of her arrhythmia. Potassium was 3.7 thi s AM, repleted with 40meq KCL x 2 doses. Magnesium 1.7 yesterday, replete with 2GM IV Magnes ium this AM. Use bisoprolol 20 mg/day for rate control. Mitral valve prolapse 07/31/2017 Discovered 20 years ago. 07/23/2017 TTE Impression 1. Atrial fibrillation with rapid ventricular response. 2. The left ventricle is normal in size, wall thickness and systolic function EF 55%. 3. The right ventricle is normal in size and function. 4. Moderate mitral regurgitation and moderately enlarged left atrium. 5. Moderate tricuspid regurgitation with no pulmonary hypertension. 6. There is no pericardial effusion. Mild asthma without complication 07/30/2017 RSV infection 07/30/2017 Atrial flutter (HCC) 07/29/2017 Congestive heart failure of unknown etiology (HCC) 07/29/2017 Chronic anticoagulation 07/29/2017 Dyspnea 07/29/2017 SCHEDULED MEDS: bisoprolol 10 mg Oral BID dofetilide 500 mcg Oral 2 times per day ezetimibe 10 mg Oral Daily furosemide 20 mg Intravenous Daily guaiFENesin 600 mg Oral BID ipratropium 1 spray Each Nare TID mometasone 220 mcg Inhalation Daily pantoprazole 40 mg Oral QAM AC predniSONE 40 mg Oral Daily with breakfast rivaroxaban 20 mg Oral Daily with dinner sodium chloride 10 mL Intravenous 2 times per day tiotropium 18 mcg Inhalation Daily IV INFUSIONS: Laboratory values which I reviewed 08/01/2017 are as follows: LABS: Recent Labs Lab 08/01/17 0403 07/31/17 0515 07/30/17 0557 WBC 10.54 7.11 7.64 RBC 4.34 4.66 4.57 HGB 13.6 14.6 14.3 HCT 38.9 41.9 41.4 MCV 89.6 89.9 90.5 MCH 31.3 31.3 31.2 MCHC 34.9 34.8 34.4 RDW 48.1 47.7 48.6 PLT 199 177 141* MPV 10.1 10.4 10.1 DIFFTYPE AUTOMATED AUTOMATED AUTOMATED Recent Labs Lab 08/01/17 0403 07/31/17 0515 07/30/17 1213 07/30/17 0558 07/30/17 0557 07/29/17 1903 WBC 10.54 7.11 -- -- 7.64 7.16 HGB 13.6 14.6 -- -- 14.3 14.4 HCT 38.9 41.9 -- -- 41.4 42.9 NA 142 -- -- -- 134* 134* K 4.9 -- -- -- 3.7 4.2 CL 110* -- -- -- 102 101 CO2 28 -- -- -- 22* 23 BUN 18 -- -- -- 10 11 INR -- -- -- -- -- 1.7 CKTOTAL -- -- -- -- -- 81 CKMB -- -- -- -- -- <1.0 TROPONINI -- -- 0.023 0.025 -- -- No results found for: CHOL, LDL, HDL, TRIG OBJECTIVE LATEST VITALS: BP 126/60 (BP Location: Right leg) | Pulse 71 | Temp 98.1 F (36.7 C) (Oral) | Resp 18 | Ht 1.651 m (5' 5") | Wt 73.5 kg (162 lb) | SpO2 96% | ? No | BMI 26.96 kg/m I/O s (this shift): No intake/output data recorded. Vital sign ranges for last 24hrs: Input and output for last 24hrs: Temp: [97.7 F (36.5 C)-98.1 F (36.7 C)] 98.1 F (36.7 C) Heart Rate: [62-119] 71 Resp: [16-18] 18 BP: (119-150)/(60-81) 126/60 SpO2 Av % Min: 93 % Max: 98 % could not be evaluated. This SmartLink does not work with rows of the type: 07/30 1899 - 08/01 0659 In: 682 [P.O.:600; I.V.:82] Out: 1800 [Urine:1800] REVIEW OF SYSTEMS A 10-point review of systems was performed and is negative except for the pertinent positiv es noted in the HPI. PHYSICAL EXAM: Admit Weight: Weight: 72.6 kg (160 lb) Current weight: Weight: 73.5 kg (162 lb) General Appearance: Alert, oriented, cooperative, no distress, appears stated age HEENT: Extraocular movements intact. Pupils round and reactive. No jaundice. NECK: No JVD, No lymphadenopathy. Trachea is at midline. CARDIAC: Normal S1 and S2 heart sounds. No murmurs, rubs, or gallops. Non-displaced, non-tong stained apical impulse. CHEST: Normal symmetrical chest excursion. Good bilateral air entry with no crackles or whe ezing. ABDOMEN: Non tender, non distended, bowel sounds present, no organomegaly. EXTREMITIES: 2+ pulses radial and pedal, symmetric. NEURO: No focal deficits. SKIN: No bruises or rash. Warm and dry. Signed by: Martin Kelley 08/01/2017, 9:47 AM onversion Transaction, Pro vider Unknown - 07/31/2017 11:52 PM PSTFormatting of this note might be different from the o riginal. Nurse Progress Note by Robert Buckley RN at 07/31/172351 Author: Robert Buckley RN Service: (none) Author Type: Registered Nurse Filed: 07/31/172351 Date of Service: 07/31/172351 Status: Signed [employer] Weapons Officer: Robert Buckley RN (Registered Nurse) QTc at 2305, 2 hours after 1st Tikosyn dose is .492 onver el Transaction, Provider Unknown - 07/31/2017 8:15 PM PST Nurse Progress Note by Robert Buckley RN at 07/31/172014 Author: Robert Buckley RN Service: (none) Author Type: Registered Nurse Filed: 07/31/172015 Date of Service: 07/31/172014 Status: Signed [employer] Weapons Officer: Robert Buckley RN (Registered Nurse) QTC at 2010 is .407 onver el Transaction, Provider Unknown - 07/31/2017 1:45 PM PST Pharmacy Note by Segundo Rothman RPH at 07/31/17 6830 Author: Segundo Rtohman RPH Service: Pharmacy Author Type: Pharmacist Filed: 07/31/17 6747 Date of Service: 07/31/17 1345 Status: Addendum [employer] We[employer] Officer: Segundo Rothman RPH (Pharmacist) Related Notes: Original Note by Segundo Rothman RPH (Pharmacist) filed at 07/31/17 1345 New TIKOSYN (dofetilide) Admit Checklist Name: Adriana Flynn Room:4452/4452-1 Age:71 y.o. Sex: female Weight: Wt Readings from Last 1 Encounters: 07/31/17 71.2 kg (157 lb) Height: Ht Readings from Last 1 Encounters: 07/30/17 1.651 m (5' 5") Estimated Creatinine Clearance: 70.8 mL/min (by C-G formula based on SCr of 0.7 mg/dL). Potassium Lab: Lab Results Component Value Date/Time K 3.7 07/30/2017 05:57 AM Magnesium Lab: Lab Results Component Value Date/Time MG 1.7 07/30/2017 05:57 AM Pre Dose Steps for initiating Tikosyn (dofetilide) therapy. 1. QTc interval (read by an approved dofetilde prescriber) </= 440 msec (500 msec in patie nts with ventricular conduction abnormalities? Yes - Okay to initiate Tikosyn (dofetilide) QTc 466 on 07/29 at 1850 provider aware Provider will calculate QTc interval and document in progress notes Prior to first dose and 2 hours after subsequent doses (at least 5 doses total) 2. CrCl greater than 20 mL/min? Yes - Okay to initiate Tikosyn (dofetilide) adjust dose fo r renal function if necessary. Pharmacist will adjust initial dose as appropriate for renal function. Dofetilide 500 mcg po bid If CrCl >60 Dofetilide 250 mcg po bid If CrCl 40 to 60 Dofetilide 125 mcg po bid If CrCl 20 to 39 This is only done once at initiation of therapy. Further dosage changes will be based on the QTc measured after each dose. 3. K+ Level greater than 3.6 mEq/L? Yes - Okay to initiate Tikosyn (dofetilide). K 3.7 th is am and received 2 doses of KCL 40mEq po today 4. Magnesium level greater than 1.9 mmol/L? Yes - Okay to initate Tikosyn (defetilide). Mag this am was 1.7- replaced with 2gm Mag Sulfate IV 5. Amiodarone DC 'd for at least 3 months or level < 0.3 mcg/mL? No - Tikosyn (defetilide) should NOT be initated until amiodarone plasma level is <0.3 mcg/mL or until amiodarone has have been withdrawn for at least 3 months. Per Aisha Fisher [facility] note- Discontinue amiodarone- she has not even been loaded completely on Amiodarone therapy. Relo ad Dofetilide 500mcg BID starting this evening. She tolerated this dosage earlier this year with good suppression of her arrhythmia. Potassium was 3.7 this AM, repleted with 40meq KCL x 2 doses. Magnesium 1.7 yesterday, replete with 2GM IV Magnesium this AM. 6. Reviewed patients med list for meds that are contraindicated with use of Tikosyn (dofet ilide): Verapamil Hydrochlorothiazide (alone or in combination, such as with triamterene) Cimetidine Trimethoprim (alone or in combination with sulfamethoxazole) Ketoconazole Prochlorperazine Megestrol 7. Class I or Class III antiarrhythmic agents held for at least 3 half-lives (t1/2) prior to initiating dofetilide? Yes - Okay to initate Tikosyn (defetilide). Quinidine (t1/2 = 6-7 hours) Procainamide (t1/2 = 2.5-4.7 hours) half-life is prolonged in patients with renal dysfun ction Disopyramide (t1/2 = 4-10 hours) Flecainide (t1/2 = 12-27 hours) Propafenone (t1/2 = 2-10 hours) Moricizine (t1/2 = 1.5-3.5 hours Sotalol (t1/2 = 8-12 hours) half-life is prolonged in patients with renal dysfunction Bretylium (t1/2 = 5-10 hours) half-life is prolonged in patients with renal dysfunction Ibutilide (t1/2 = 2-12 hours, average = 6 hours) 8. Reviewed patients med list for meds that should be used with CAUTION while on Tikosyn ( dofetilide): Macrolide antibiotics, azole antifungals, protease inhibitors and SRI's - The y may increase blood levels of TIKOSYN. 9. Tikosyn in combination with digoxin is permitted, but patients should be carefully angel tored for digoxin toxicity. Patient meets criteria to initiate Tikosyn (dofetilide)?Yes SEGUNDO ROTHMAN, Chung 07/31/2017 1:38 PM Andre Chua i, MD - 07/31/2017 9:05 AM PSTFormatting of this note might be different from the o riginal. Progress Notes by Andre Ward MD at 07/31/17904 Author: Andre Ward MD Service: Hospitalist Author Type: Physician Filed: 07/31/17 1253 Date of Service: 07/31/17904 Status: Signed Infantry Weapons Officer: Andre Ward MD (Physician) [facility] Service: Hospitalist Progress Note Pt: Adriana Flynn AGE/SEX: 71 y.o. female ROOM: [address] [place] [address] : 1945 PCP: No primary care provider on file. ADMIT DATE: 07/29/2017 TODAY'S DATE: 07/31/2017 Hospital Day/Hospital Course: LOS: 1 day Per prior notes "71-year-old female with a history of atrial flutter status post unsuccessf ul cardioversion 2 transferred from outside facility with palpitations and shortness of br eath. Patient has seen Dr. Whalen at [facility] and has had ablation 2. She stopped taking Gabe syn 6 months ago. She is on Xarelto. Cardiology consulted" SUBJECTIVE: Patient seen and examined. She states she feels much better today. She does not complain of shortness of breath. States her heart rate is better controlled today. She was able to disc uss with Dr. Kelley. No complaint of chest pain, SOB, SPRINGER. No cough on recumbency. Had no ort hopnea or PND. No Abdominal pain, N/V or fever. No dizziness or lightheadedness. Scheduled Medications: bisoprolol 10 mg Oral BID [START ON 08/01/2017] digoxin 0.0625 mg Oral Daily dofetilide 500 mcg Oral 2 times per day ezetimibe 10 mg Oral Daily furosemide 20 mg Intravenous Daily guaiFENesin 600 mg Oral BID ipratropium 1 spray Each Nare TID lidocaine buffered 1% 0.5 mL Intradermal Once mometasone 220 mcg Inhalation Daily pantoprazole 40 mg Oral QAM AC predniSONE 40 mg Oral Daily with breakfast rivaroxaban 20 mg Oral Daily with dinner sodium chloride 10 mL Intravenous 2 times per day tiotropium 18 mcg Inhalation Daily Continuous Infusions PRN Medications acetaminophen OR acetaminophen, HYDROcodone-acetaminophen OR HYDROcodone-acetaminop hen, levalbuterol, magnesium sulfate OR magnesium sulfate OR magnesium sulfate, meto prolol, ondansetron OR ondansetron, phosphorus OR sodium phosphate IVPB 15 mmol OR sodium phosphate IVPB 30 mmol, polyethylene glycol, potassium OR potassium OR pot assium OR potassium chloride OR potassium chloride OR potassium chloride, sodium chloride, zolpidem Allergy: Allergies Allergen Reactions Cardizem [Diltiazem] Hives Localized near IV site Celecoxib Other (See Comments) unknown Ciprofloxacin Rash Flecainide Other (See Comments) unknown Propafenone Other (See Comments) Unknown Crestor [Rosuvastatin] Muscle Pain "muscle spasms" Gluten Meal GI Distress Milk-Related Compounds GI Distress Other-Drug GI Distress "kapidex" OBJECTIVE: Vitals: Patient Vitals for the past 24 hrs: BP Temp Temp src Pulse Resp SpO2 Weight 07/31/17 0839 126/77 97.7 F (36.5 C) Oral 100 20 95 % - 07/31/17 0342 97/55 98.1 F (36.7 C) Oral 98 18 95 % 71.2 kg (157 lb) 07/30/17 2320 107/65 97.7 F (36.5 C) Oral 130 18 96 % - 07/30/17 1903 150/87 98 F (36.7 C) Oral 138 18 95 % - 07/30/17 1518 120/67 98.3 F (36.8 C) Oral 131 18 96 % - 07/30/17 1115 136/81 97.9 F (36.6 C) Oral 119 20 94 % - I&O Detailed Table: Intake/Output Summary (Last 24 hours) at 07/31/17 09 Last data filed at 07/30/171999 Gross per 24 hour Intake 885 ml Output 2525 ml Net -1640 ml Patient Vitals for the past 96 hrs: Weight 07/31/17 0342 71.2 kg (157 lb) 07/30/17 0203 72.4 kg (159 lb 9.8 oz) 07/29/17 1844 72.6 kg (160 lb) Physical Examination: Constitutional: Awake, interactive. Appears well-developed and well-nourished. Comfortable today. HEENT: Neck supple, no JVD, non icteric sclera. Cardiovascular: Irregular rhythm. Mild tachycardia is present.. Exam reveals no appreciate d gallop or friction rub. No murmur heard. Pulmonary/Chest: Effort normal and breath sounds normal. No stridor. No respiratory distres s. no wheezes. no rales. exhibits no chest wall tenderness. Abdominal: Soft. Bowel sounds are normal. exhibits no distension and no mass. Mild wheezing present on expiration. Cough with expiration. Extremeties/Musculoskeletal: Normal range of motion for patient. exhibits no tenderness. e xhibits no edema. Neurological: Alert and oriented to person, place, and time. No cranial nerve deficit celestino reciated. Exhibits normal muscle tone. Coordination normal. Skin: Skin is warm and dry. No rash noted. No erythema. No pallor. Psychiatric: Has a normal mood and affect given situation. Behavior is normal. Judgment nor mal. LABS: Recent Labs Lab 07/31/17 0515 07/30/17 0557 07/29/17 190 WBC 7.11 7.64 7.16 HGB 14.6 14.3 14.4 HCT 41.9 41.4 42.9 PLT 177 141* 150 NEUTOPHILPCT 77.08 67.65 63.29 MONOPCT 10.49 11.11 11.26 Recent Labs Lab 07/30/17 0557 07/29/17 1903 NA 134* 134* K 3.7 4.2 CL 102 101 CO2 22* 23 BUN 10 11 CREATININE 0.7 1.0 PROT 5.8* 6.5 BILITOT 1.3 1.2 ALT 39 42 AST 26 45 Phosphorus: Lab Results Component Value Date PHOS 2.3 07/30/2017 Invalid input(s): LABALBU Recent Labs Lab 07/30/17 0557 07/29/17 2326 MG 1.7 1.6* Recent Labs Lab 07/29/17 1903 APTT 29 INR 1.7 Recent Labs Lab 07/30/17 1217 TSH 0.852 Recent Labs Lab 07/30/17 1213 07/30/17 0558 07/29/17 1903 CKTOTAL -- -- 81 TROPONINI 0.023 0.025 -- CKMBINDEX -- -- UNABLE TO CALCULATE Results Procedure Component Value Units Date/Time Respiratory Filmarray [[id number]] (Abnormal) Collected: 07/30/17 1152 Specimen: Nasal Swab Updated: 07/30/17 1426 ADENOVIRUS Not Detected CORONAVIRUS 229E Not Detected CORONAVIRUS HKU1 Not Detected CORONAVIRUS NL63 Not Detected CORONAVIRUS OC43 Not Detected HUMAN METAPNEUMOVIRUS Not Detected HUMAN RHINO/ENTERO Not Detected INFLUENZA A Not Detected INFLUENZA B Not Detected PARAINFLUENZA 1 Not Detected PARAINFLUENZA 2 Not Detected PARAINFLUENZA 3 Not Detected PARAINFLUENZA 4 Not Detected RESP SYNCYTIAL VIRUS DETECTED (A) BORDETELLA PERTUSSIS Not Detected CHLAMYDIAE PNEUMONIAE Not Detected MYCOPLASMA PNEUMONIAE Not Detected RESP PANEL INTERP Testing performed by Molecular Methodology RADIOLOGY: Xr Chest 1 View Result Date: 07/31/2017 1. Persistent subtle infiltrate perhaps with minimal effusion in the right lung base statu s post right mastectomy with breast prosthesis. Electronically signed by MD collin Polanco n 07/31/2017 6:51 AM PROBLEM LIST Principal Problem: Atrial flutter (HCC) Active Problems: Congestive heart failure of unknown etiology (HCC) Chronic anticoagulation Dyspnea Mild asthma without complication RSV infection Atrial tachycardia (HCC) Paroxysmal atrial fibrillation (HCC) Mitral valve prolapse ASSESSMENT & PLAN Chronic atrial flutter with RVR. Heart rate is better controlled today and the patient is m ore comfortable. Discussed with Dr. Fall. Will continue Xarelto. Per Dr. Kelley switch m etoprolol to bisoprolol. Amiodarone infusion completed. Continue with digoxin. Tikosyn has b een restarted. If heart rate is not controlled will require pacemaker placement. Cardiac en zymes are negative. - monitor electrolytes closely. Asthma with mild exacerbation with RSV. Will continue on Xopenex prn. Will continue Asmanex and Spiriva. We will start patient on prednisone for 5 days total. Today is day 2. Respirat ory PCR panel shows respiratory syncytial virus. - droplet precautions. Hypertension. Blood pressure is controlled on metoprolol. Acute on chronic diastolic congestive heart failure. Will continue Lasix 20mg IV today. Pat ient remains in negative fluid balance. Echocardiogram in July 2017 showed EF of 55 percent with moderate mitral regurgitation a nd moderate tricuspid regurgitation. Deep vein thrombosis prophylaxis is not needed as patient is anticoagulated. Gastroesophageal reflux disease. Will continue Protonix. Dyspnea. Improved. Multifactorial including secondary to acute on chronic diastolic CHF. Andre Ward MD 07/31/2017 9:05 AM Greater than 35 minutes spent today overall in coordination of care, seeing and managing abena leyva, review of data, coordination with staff, coordination with involved consultants, and including any scheduled multidisciplinary rounding focused on the patient with 50 percent or more spent seeing and managing patient and counseling/coordination. Dictation software, Solaria, used which may contain error for similar sounding words even af ter review. Personal communication requested for any clarification. Portions of this chart may have been copied from previous notes for continuity of care purp ose onversion Transacti on, Provider Unknown - 07/30/2017 1:39 PM PSTFormatting of this note might be different fro m the original. Case Management by Leigh Power RN at 07/30/17 4947 Author: Leigh Power RN Service: (none) Author Type: Registered Nurse Filed: 07/30/17 0289 Date of Service: 07/30/17 1331 Status: Signed Infantry Weapons Officer: Leigh Power RN (Registered Nurse) 07/30/17 1300 Discharge Planning Evaluation Admitting Diagnosis afib Readmission No Living Arrangements Spouse/significant other Support Systems Spouse/significant other Type of Residence Private residence Independent with ADL's Yes Independent with Mobility Yes Home Care Services No Caregiver after Discharge No Mental Status Oriented Prior functional status indep Resources Financial concerns No Transportation issues No Patient/Family concerns No Previous home health equipment No Anticipated Disposition Facility Type Home Met with pt and discussed discharge planning, Pt is a 71 y.o., female.,pt states she lives with spouse in [place] and is indep with all her ADL's. No use of home O2, no dme, no HD. Pt is on Xarelto. Plan is to return home. Patient's PCP is: Saman Ribera Patient's insurance: medicare/moda Coverage concerns: Medication coverage/concerns: Rx Bedside Delivery: [facility] Community resources utilized / needed: no Assistance in transportation: family Identification of any specific education / training: no Barriers to Discharge / Alternative housing needed: no Anticipated DCP: home Benita Power RN CM Sallie Pereira MD - 07/30/2017 9:16 AM PSTFormatting of this note might be different from t brigido original. Progress Notes by Sallie Sánchez MD at 07/30/17915 Author: Sallie Sánchez MD Service: Hospitalist Author Type: Physician Filed: 07/30/17 1522 Date of Service: 07/30/17915 Status: Signed [employer] Weapons Officer: Sallie Sánchez MD (Physician) [facility] Service: Hospitalist Progress Note Hospital Day: LOS: 0 days SUBJECTIVE Patient Summary: 71-year-old female with a history of atrial flutter status post unsu ccessful cardioversion 2 transferred from outside facility with palpitations and shortness of breath. Patient has seen Dr. Whalen at [facility] and has had ablation 2. She stopped takin g Tikosyn 6 months ago. She is on Xarelto. Cardiology consulted. Events Overnight: Patient states that her shortness of breath is improved. She still complains of palpitations. She complains of wheezing. Patient had a upper respiratory infec tion in June and was treated with Tamiflu but not tested for the flu. Scheduled Medications digoxin 0.25 mg Intravenous Q6H ezetimibe 10 mg Oral Daily furosemide 20 mg Intravenous Daily ipratropium 1 spray Each Nare TID metoprolol 75 mg Oral TID mometasone 220 mcg Inhalation Daily pantoprazole 40 mg Oral QAM AC predniSONE 40 mg Oral Daily with breakfast rivaroxaban 20 mg Oral Daily with dinner tiotropium 18 mcg Inhalation Daily Continuous Infusions amiodarone infusion Stopped (07/30/17 1131) PRN Medications acetaminophen OR acetaminophen, HYDROcodone-acetaminophen OR HYDROcodone-acetaminop hen, levalbuterol, magnesium sulfate OR magnesium sulfate OR magnesium sulfate, meto prolol, ondansetron OR ondansetron, phosphorus OR sodium phosphate IVPB 15 mmol OR sodium phosphate IVPB 30 mmol, polyethylene glycol, potassium OR potassium OR pot assium OR potassium chloride OR potassium chloride OR potassium chloride, zolpid em OBJECTIVE Vital Signs: BP 136/81 (BP Location: Left forearm) | Pulse 119 | Temp 97.9 F (36.6 C) (Oral) | Re sp 20 | Ht 1.651 m (5' 5") | Wt 72.4 kg (159 lb 9.8 oz) | SpO2 94% | ? No | BMI 26.56 kg/m Patient Vitals for the past 24 hrs: BP Temp Temp src Pulse Resp SpO2 Height Weight 07/30/17 1115 136/81 97.9 F (36.6 C) Oral 119 20 94 % - - 07/30/17 0753 141/88 97.9 F (36.6 C) Oral 118 18 93 % - - 07/30/17 0322 141/90 98.3 F (36.8 C) Oral 136 17 92 % - - 07/30/17 0203 135/90 98.4 F (36.9 C) Oral 133 18 94 % 1.651 m (5' 5") 72.4 kg (159 lb 9 .8 oz) 07/30/17 0110 159/87 - - 130 16 91 % - - 07/30/17 0055 (!) 145/92 - - 132 - 91 % - - 07/30/17 0010 146/85 - - 130 - 92 % - - 07/29/17 2355 (!) 150/91 - - 130 - 92 % - - 07/29/17 2316 176/83 - - 130 - 92 % - - 07/29/17 2313 (!) 163/91 - - 132 - 91 % - - 07/29/17 2309 136/82 - - 135 18 92 % - - 07/29/17 2308 - - - 129 18 93 % - - 07/29/172305 - - - 126 15 95 % - - 07/29/17 2305 147/67 - - 134 16 95 % - - 07/29/17 230 - - - 139 18 94 % - - 07/29/172 - - - 129 18 95 % - - 07/29/17 2300 - - - 137 15 96 % - - 07/29/179 124/70 - - 143 18 95 % - - 07/29/172255 - - - 144 18 96 % - - 07/29/17 2255 131/56 - - 132 10 (!) 88 % - - 07/29/172253 - - - 139 14 97 % - - 07/29/172251 125/61 - - 136 10 (!) 80 % - - 07/29/172249 - - - 132 16 95 % - - 07/29/172248 - - - 139 19 95 % - - 07/29/172247 (!) 158/103 - - 126 19 96 % - - 07/29/172238 - - - 141 16 (!) 88 % - - 07/29/172218 147/89 98.8 F (37.1 C) Oral 128 16 92 % - - 07/29/172147 153/82 - - 130 16 92 % - - 07/29/172127 - - - 134 - 94 % - - 07/29/172026 151/67 - - 134 18 92 % - - 07/29/172011 134/62 - - 136 - 96 % - - 07/29/172007 (!) 138/91 - - 138 16 94 % - - 07/29/172006 (!) 138/91 - - 131 20 95 % - - 07/29/17 1919 156/87 - - 134 - 94 % - - 07/29/17 1844 146/89 99.3 F (37.4 C) Oral 130 18 95 % - 72.6 kg (160 lb) Intake/Output Summary (Last 24 hours) at 07/30/17 1513 Last data filed at 07/30/17 1000 Gross per 24 hour Intake 0 ml Output 1950 ml Net -1950 ml Physical Exam: Constitutional: Alert and oriented to person, place, and time. HEENT: Neck supple, no JVD, non icteric sclera. Cardiovascular: Irregularly irregular, tachycardic Pulmonary/Chest: Effort normal and breath sounds are decreased bilaterally. Biateral wheeze s present. Abdominal: Soft. Bowel sounds are normal. exhibits no distension and no mass. There is no t enderness. There is no rebound and no guarding. Extremeties/Musculoskeletal: Normal range of motion.exhibits no tenderness. exhibits no ed mynor. Neurological: Alert and oriented to person, place, and time. Skin: Skin is warm and dry. Psychiatric: Has a normal mood and affect. DATA Recent Labs Lab 07/30/17 0557 07/29/17 1903 WBC 7.64 7.16 RBC 4.57 4.67 HGB 14.3 14.4 HCT 41.4 42.9 MCV 90.5 91.9 MCH 31.2 30.9 MCHC 34.4 33.6 RDW 48.6 49.0 PLT 141* 150 MPV 10.1 10.3 DIFFTYPE AUTOMATED AUTOMATED Recent Labs Lab 07/30/17 0557 07/29/17 1903 NA 134* 134* K 3.7 4.2 CL 102 101 CO2 22* 23 BUN 10 11 CREATININE 0.7 1.0 PROT 5.8* 6.5 BILITOT 1.3 1.2 ALT 39 42 AST 26 45 GLUF 97 114* Recent Labs Lab 07/30/17 1213 07/30/17 0558 07/29/17 1903 CKTOTAL -- -- 81 TROPONINI 0.023 0.025 -- CKMBINDEX -- -- UNABLE TO CALCULATE Recent Labs Lab 07/30/17 0557 07/29/17 2326 PHOS 2.3 2.2* Recent Labs Lab 07/30/17 0557 07/29/17 2326 MG 1.7 1.6* Invalid input(s): ABG No results for input(s): CALCIUM in the last 168 hours. Recent Labs Lab 07/29/171902 APTT 29 INR 1.7 No results found. PROBLEM LIST Principal Problem: Atrial flutter (HCC) Active Problems: Congestive heart failure of unknown etiology (HCC) Chronic anticoagulation Dyspnea Mild asthma without complication RSV infection ASSESSMENT & PLAN Chronic atrial flutter with RVR. Heart rate is not well controlled. Discussed with Dr. Hayley weiss. Will continue Xarelto. We will continue metoprolol. We will continue amiodarone to co mplete infusion. Patient started on digoxin. If blood pressure remains stable plan is to i ncrease metoprolol dose. If heart rate is not controlled will require pacemaker placement. C ardiac enzymes and negative. Asthma with mild exacerbation with RSV. Will start patient on Xopenex prn. Will continue As manex and Spiriva. We will start patient on prednisone. Respiratory PCR panel shows respirat ory syncytial virus.Will start droplet precautions. Hypertension. Blood pressure is controlled on metoprolol. Acute on chronic diastolic congestive heart failure. Will continue Lasix. Patient remains i n negative fluid balance. Will repeat chest x-ray in a.m. Echocardiogram in July 2017 showed EF of 55 percent with moderate mitral regurgitation a nd moderate tricuspid regurgitation. Deep vein thrombosis prophylaxis is not needed as patient is anticoagulated. Gastroesophageal reflux disease. Will continue Protonix. Dyspnea. Improved. Multifactorial. I spent over 35 minutes in reviewing patient's labs, diagnostic tests, examination of patie nt and discussing plan of care with patient and family. At least 50 percent of time was spen t in [id number] coordination of care and counseling. All questions were answered . All chance a was reviewed. Disposition: Inpatient Code Status: Full Code Sallie Sánchez MD 07/30/2017 3:13 PM This entry has been created using NetIQ Speech Recognition software and PeriGen. The entry has been reviewed and there may still exist sound alike word errors. Zelda Gordon DO - 07/30/2017 6:33 AM PST Progress Notes by Zelda Allred DO at 07/30/17632 Author: Zelda Allred DO Service: Hospitalist Author Type: Physician Filed: 07/30/1734 Date of Service: 07/30/17632 Status: Signed Infantry Weapons Officer: Zelda Allred DO (Physician) Discussed case with Dr. Fall, HR still in the 130's, recommended start home dose metop rolol in addition of Amiodarone. Electrolyte protocol added onversion Transaction, Provider Unknown - 07/30/2017 2:51 AM PSTFormatting of this note might be different from michael fofana original. Progress Notes by James Patel RPH at 07/30/17250 Author: James Patel RPH Service: Pharmacy Author Type: Pharmacist Filed: 07/30/17250 Date of Service: 07/30/17250 Status: Signed Infantry Weapons Officer: James Patel RPH (Pharmacist) Note ccl 50ml/min meds reviewed pharmacy will follow c 0251 docume nted in this encounter H&P Notes Zelda Allred DO - 07/29/2017 9:22 PM PSTFormatting of this note might be different from michael fofana original. H&P by Zelda Allred DO at 07/29/172121 Author: Zelda Allred DO Service: Hospitalist Author Type: Physician Filed: 07/30/17630 Date of Service: 07/29/172121 Status: Signed Infantry Weapons Officer: Zelda Allred DO (Physician) [facility] Service: Hospitalist Admission History & Physical Date of Admission: 07/29/2017 Primary Care Physician: No primary care provider on file. Reason for Admission: Atrial flutter 140's, SOB and cough History Obtained From: patient CHIEF COMPLAINT: Chief Complaint Patient presents with Tachycardia Afib with RVR new onset per EMS HISTORY OF PRESENT ILLNESS The patient is a 71 y.o. female with significant past medical history of who presents as a transfer from [facility] with Atrial flutter, s/p unsuccessful cardioversion. Presenting s ymptoms at the outside facility were cough, palpitations and shortness of breath. The sympto ms are of severe severity, occuring all day and lasting 24 hours per episode. Cardiac risk f actors include: advanced age (older than 55 for men, 65 for women) and atrial flutter/atril tachycardia, ablation x 2 . Aggravating factors: walking. Relieving factors: none. Associate d signs and symptoms: fatigue and lower extremity edema. Sees Elijah Borrego at [facility] cardi ologist last visit 05/16/2017. Saw family doctor end of June HR at that time was 150 but apparently, she was asymptomatic. At home HR 60-110. Patient recently due to cough and respi ratory illness at the end of June prescribed 2 rounds of antibiotic and tamiflu with min imal relief. Stopped taking Tykosin 6 months. Takes Xarelto for Afib. ED findings: Heart rate at [facility] in the range of 140s to 150s, cardioverted for a s hort period of time between as low as 76. Cardioverter with 200 J with converted to sinus Chest x-ray at [facility] noted however no final report, read as above findings. Further Evaluated with a CT Chest with Contrast As Clinically Needed ??. BNP 808 ED at [facility]: Cardioverter at 200 J again without success REVIEW OF SYSTEMS As above, a total of 12 systems reviewed, o/w unremarkable Past Medical History Diagnosis Date Asthma Atrial tachycardia (HCC) Breast cancer (HCC) Diverticulitis Fibromyalgia H/O cardiac radiofrequency ablation Mitral valve prolapse Pulmonary embolism (HCC) Sjogren's disease (HCC) Small bowel obstruction Tenosynovitis Thyroid nodule TMJ (dislocation of temporomandibular joint) Past Surgical History Procedure Laterality Date ABDOMINAL HERNIA REPAIR APPENDECTOMY BLADDER SUSPENSION Bunions surgery CARDIAC ELECTROPHYSIOLOGY MAPPING AND ABLATION CARPAL TUNNEL RELEASE ECTOPIC SURGERY Fibrocystic breasts HEMORRHOID SURGERY HYSTERECTOMY LAPAROSCOPIC LIVER CYST FENESTRATION LYMPH NODE DISSECTION MASTECTOMY SINUS SURGERY Allergies Allergen Reactions Cardizem [Diltiazem] Hives Localized near IV site Ciprofloxacin Rash Crestor [Rosuvastatin] Muscle Pain "muscle spasms" Gluten Meal GI Distress Milk-Related Compounds GI Distress Other-Drug GI Distress "kapidex" Social History Social History Marital status: Spouse name: N/A Number of children: N/A Years of education: N/A Social History Main Topics Smoking status: Not on file Smokeless tobacco: Not on file Alcohol use Not on file Drug use: Unknown Sexual activity: Not on file Other Topics Concern Not on file Social History Narrative No narrative on file Prior to Admission medications Medication Sig Start Date End Date Taking? Authorizing Provider budesonide (PULMICORT) 180 MCG/ACT inhaler Inhale 3 puffs into the lungs 2 (two) times bing y. Yes Historical Provider carboxymethylcellulose (REFRESH PLUS) 0.5 % SOLN Place 1 drop into both eyes 3 (three) time s daily as needed. Yes Historical Provider ezetimibe (ZETIA) 10 MG tablet Take 1 tablet by mouth daily. 06/18/17 Yes Historical Provid er fluticasone (FLONASE) 50 MCG/ACT nasal 1 spray by Each Nare route 2 (two) times daily. Ye s Historical Provider furosemide (LASIX) 20 MG tablet Take 20 mg by mouth daily. Yes Saman Ribera MD ipratropium (ATROVENT) 0.03 % nasal 1 spray by Each Nare route 3 (three) times daily. Yes Historical Provider metoprolol (LOPRESSOR) 50 MG tablet Take 75 mg by mouth 3 (three) times daily. May take an additional 25mg tablet as needed for palpitations. Yes Historical Provider potassium chloride SA (K-DUR,KLOR-CON) 20 MEQ tablet Take 20 mEq by mouth daily. Yes Hist orical Provider rabeprazole (ACIPHEX) 20 MG tablet Take 20 mg by mouth 2 (two) times daily. Yes Historica l Provider rivaroxaban (XARELTO) 20 MG tablet Take 20 mg by mouth daily with dinner. Yes Historical Provider tiotropium (SPIRIVA) 18 MCG inhalation capsule Inhale 18 mcg into the lungs daily. Yes [facility] Family [facility]x: mother had CHF and father post surgical complication PHYSICAL EXAM BP 151/67 (BP Location: Right upper arm) | Pulse 134 | Temp 99.3 F (37.4 C) (Oral) | Resp 18 | Wt 72.6 kg (160 lb) | SpO2 92% General Appearance: A & O x 3, no distress, appears stated age. Pale Head: Normocephalic, without obvious abnormality, atraumatic Eyes: PERRL, conjunctiva/corneas clear, EOM's intact. Ears: Normal external ear canals, no otorrhea Nose: Nares normal, no drainage or sinus tenderness Throat: Lips, mucosa, and tongue normal; gums normal Neck: Supple, symmetrical, trachea; no carotid bruit or JVD Back: Symmetric, no curvature, ROM normal, no CVA tenderness Lungs: Clear to auscultation bilaterally, respirations unlabored Chest Wall: No tenderness or deformity Heart: Regular rate and rhythm, tachycardia, S1 and S2 normal, no murmur, rub or gallop Abdomen: Soft, non-tender, bowel sounds active all four quadrants, no masses, no organo megaly Genitalia: Deferred Rectal: Deferred Extremities: Upper extremities no clubbing/ cyanosis/ erythema Lower extremities atraum atic, no cyanosis or edema Pulses: 2+ and symmetric all extremities Skin: Skin warm, texture and turgor normal, no rashes or lesions Lymph nodes: No gross lymphadenopathy. Neurologic: Psychiatric: CNII-XII intact, normal strength, sensation normal Affect/ mood normal, behavior and judgement normal DATA Results for orders placed or performed during the hospital encounter of 07/29/17 (from the past 24 hour(s)) Cardiac Panel Collection Time: 07/29/17 7:03 PM Result Value Ref Range WBC 7.16 3.80 - 11.00 K/uL RBC 4.67 3.70 - 5.10 M/uL HGB 14.4 11.3 - 15.5 g/dL HCT 42.9 34.0 - 46.0 % MCV 91.9 80.0 - 100.0 fl MCH 30.9 27.0 - 34.0 pg MCHC 33.6 32.0 - 35.5 g/dL RDW SD 49.0 37 - 53 fl PLT 150 150 - 400 K/uL MPV 10.3 fl DIFF TYPE AUTOMATED NEUTROPHILS 63.29 % LYMPHOCYTES 23.16 % MONOCYTES 11.26 % EOSINOPHILS 1.24 % BASOPHILS 1.05 % NEUTROPHILS ABS 4.53 1.90 - 7.40 K/uL LYMPHOCYTES ABS 1.66 1.00 - 3.90 K/uL MONOCYTES ABS 0.81 (H) 0.00 - 0.80 K/uL EOSINOPHILS ABS 0.09 0.00 - 0.50 K/uL BASOPHILS ABS 0.08 0.00 - 0.10 K/uL SODIUM 134 (L) 135 - 145 mmol/L POTASSIUM 4.2 3.5 - 4.9 mmol/L CHLORIDE 101 99 - 109 mmol/L CO2 23 23 - 32 mmol/L ANION GAP AGAP 14 5 - 20 mmol/L GLUCOSE 114 (H) 65 - 99 mg/dL BUN 11 8 - 25 mg/dL CREATININE 1.0 0.50 - 1.00 mg/dL BUN/CREAT 11 CALCIUM 8.2 (L) 8.5 - 10.5 mg/dL TOTAL PROTEIN 6.5 6.3 - 8.2 g/dL Albumin 2.8 (L) 3.3 - 4.8 g/dL GLOBULIN 3.7 1.3 - 4.9 g/dL A/G 0.7 (L) 1.0 - 2.4 TBIL 1.2 0.1 - 1.5 mg/dL ALK PHOS 76 35 - 115 U/L AST 45 10 - 45 U/L ALT 42 10 - 65 U/L EGFR 58 (L) >60 mL/min/1.73m2 CPK 81 30 - 240 U/L INR 1.7 APTT 29 23 - 32 seconds MMB <1.0 0.5 - 3.6 ng/mL CK-MB Index UNABLE TO CALCULATE POC cardiac troponin Collection Time: 07/29/17 7:06 PM Result Value Ref Range POC CARDIAC TROPONIN 0.02 0.00 - 0.10 ng/mL ECG from 1849: Atrial flutter with a ventricular rate of 131 bpm. QRS, QT, and axis are nor mal. No ST segment elevations or depression. No significant Q waves. Good R wave progression through the precordial leads. No acute ischemia. In comparison with an old ECG from [facility] er today there are no significant changes. This study has been independently viewed and int erpreted by me./ DR WILCOX ASSESSMENT & PLAN Principal Problem: Atrial flutter (HCC): -Cardioverted in the ER -Resume home medication -Telemetry -Monitor electrolytes -Dr Fall consulted per ED physician, he will see the patient in the AM Active Problems: Congestive heart failure of unknown etiology (HCC): -Likely secondary to #1 -Echo order -Lasix IV Chronic anticoagulation: -Continue Xarelto Dyspnea; -Secondary to #2 and #1 -Supplemental O2 Asthma: -Continue MDI -Monitor for decompensation GI and DVT prophylaxis ZELDA ALLRED DO 07/29/2017 9:42 PM documented in this enco unter Consult Notes Martin Kelley MD - 07/31/2017 9:41 PM PSTFormatting of this note might be different fr om the original. Consult* by Martin Kelley MD at 07/31/172140 Author: Martin Kelley MD Service: Cardiology Author Type: Physician Filed: 07/31/172149 Date of Service: 07/31/172140 Status: Signed Infantry Weapons Officer: Martin Kelley MD (Physician) [facility] PATIENT NAME: Adriana Flynn : 1945: AGE: 71 y.o. ADMISSION DATE: 07/29/2017 Hospital Day # 1 Principal Hospital Problem: Atrial flutter (HCC) Code Status: Full Code PRIMARY CARE: No primary care provider on file. Martin Kelley MD ELECTROPHYSIOLOGY HOSPITAL CONSULT Reason for Consultation: Chief Complaint Patient presents with Tachycardia Afib with RVR new onset per EMS Requesting Physician: Eufemia. HPI- In the last month, she has had multiple exacerbations of asthma, requiring prednisone thera py. Presented to [facility] with SOB and palpitations, found to be in AFIB RVR. She was transferred to [facility] for arrhythmia management. DCCV was attempted, which maintained sinus rhythm for an hour and she converted back to atr ial fibrillation. She was loaded with amiodarone and was transferred to [facility] on amiodarone d rip- a cardioversion with 200J was again attempted in [facility] ER, as she was persistently tachy cardic to 130-140- she converted to sinus for a brief moment only to go right back into atri al fibrillation. Atypical atrial flutter with variable AV conduction failed cardioversion twice in this hosp ital visit Amiodarone load was initiated this admission. She previously tolerated Dofetilide 500mcg BID. This was discontinued as a trial to determi ne if she would present with Atrial Fibrillation underlying. Has been following with Elijah Holloway at [facility] professor of theology. Last visit 05/16/2017. 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 She does not drink ETOH or Caffeine She does not have sleep apnea. Younger sister- 12 years younger also has AFIB and MVP. Younger brother- "heart problems" but no heart attack Mom- at age 86. - at age 94 ASSESSMENT AND PLAN: Patient Active Problem List Diagnosis Date Noted Atrial tachycardia (HCC) 07/31/2017 Hx of s/p successful ablation of stacey tach 2004. 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 Successfully suppressed with dofetilide- however Tikosyn was discontinued 04/[address] Elijah Whalen because of mendez dequate control of symptoms and reported atrial fibrillation during eye surgery Paroxysmal atrial fibrillation (HCC) 07/31/2017 Preserved LV systolic function EF 55% on most recent echo with moderately dilated LA. Con tinues on Xarelto with no signs or symptoms of bleeding. Rate Control has improved. Will c hange Metoprolol to Bisoprolol for more cardioselectivity, given underlying asthma. She has been doing well overall and feeling improved from a respiratory standpoint. Outside of this hospital admission, she does report just minutes of arrhythmia while wearing event monitor w ith heart rate up to 240 bpm. Discontinue amiodarone- she has not even been loaded completel y on Amiodarone therapy. Reload Dofetilide 500mcg BID, starting this evening. She tolerated this dosage earlier this year with good suppression of her arrhythmia. Potassium was 3.7 thi s AM, repleted with 40meq KCL x 2 doses. Magnesium 1.7 yesterday, replete with 2GM IV Magnes ium this AM. Use bisoprolol 20 mg/day for rate control. Mitral valve prolapse 07/31/2017 Discovered 20 years ago. 07/23/2017 TTE Impression 1. Atrial fibrillation with rapid ventricular response. 2. The left ventricle is normal in size, wall thickness and systolic function EF 55%. 3. The right ventricle is normal in size and function. 4. Moderate mitral regurgitation and moderately enlarged left atrium. 5. Moderate tricuspid regurgitation with no pulmonary hypertension. 6. There is no pericardial effusion. Mild asthma without complication 07/30/2017 RSV infection 07/30/2017 Atrial flutter (HCC) 07/29/2017 Congestive heart failure of unknown etiology [facility] 07/29/2017 Chronic anticoagulation 07/29/2017 Dyspnea 07/29/2017 EKG: Last Echo: Impression 1. Atrial fibrillation with rapid ventricular response. 2. The left ventricle is normal in size, wall thickness and systolic function EF 55%. 3. The right ventricle is normal in size and function. 4. Moderate mitral regurgitation and moderately enlarged left atrium. 5. Moderate tricuspid regurgitation with no pulmonary hypertension. 6. There is no pericardial effusion. PAST MEDICAL HISTORY Past Medical History Diagnosis Date Asthma Atrial tachycardia (HCC) Breast cancer (HCC) Diverticulitis Fibromyalgia H/O cardiac radiofrequency ablation Mitral valve prolapse Pulmonary embolism (HCC) Sjogren's disease (HCC) Small bowel obstruction Tenosynovitis Thyroid nodule TMJ (dislocation of temporomandibular joint) PAST SURGICAL HISTORY (INCLUDING PROCEDURES) Past Surgical History Procedure Laterality Date ABDOMINAL HERNIA REPAIR APPENDECTOMY BLADDER SUSPENSION Bunions surgery CARDIAC ELECTROPHYSIOLOGY MAPPING AND ABLATION CARPAL TUNNEL RELEASE ECTOPIC SURGERY Fibrocystic breasts HEMORRHOID SURGERY HYSTERECTOMY LAPAROSCOPIC LIVER CYST FENESTRATION LYMPH NODE DISSECTION MASTECTOMY SINUS SURGERY FAMILY HISTORY SOCIAL HISTORY Social History Social History Marital status: Spouse name: N/A Number of children: N/A Years of education: N/A Occupational History Not on file. Social History Main Topics Smoking status: Never Smoker Smokeless tobacco: Never Used Alcohol use Not on file Drug use: Unknown Sexual activity: Not on file Other Topics Concern Not on file Social History Narrative No narrative on file TOBACCO HISTORY History Smoking Status Never Smoker Smokeless Tobacco Never Used OUTPATIENT MEDICATIONS Prescriptions Prior to Admission Medication Sig Dispense Refill Last Dose budesonide (PULMICORT) 180 MCG/ACT inhaler Inhale 3 puffs into the lungs 2 (two) times daily. 07/29/2017@am carboxymethylcellulose (REFRESH PLUS) 0.5 % SOLN Place 1 drop into both eyes 3 (three) times daily as needed. 07/29/2017@am ezetimibe (ZETIA) 10 MG tablet Take 1 tablet by mouth daily. 0 07/29/2017@am fluticasone (FLONASE) 50 MCG/ACT nasal 1 spray by Each Nare route 2 (two) times daily. 07/29/2017@am furosemide (LASIX) 20 MG tablet Take 20 mg by mouth daily. 07/29/2017@am ipratropium (ATROVENT) 0.03 % nasal 1 spray by Each Nare route 3 (three) times daily. 07/29/2017@am metoprolol (LOPRESSOR) 50 MG tablet Take 75 mg by mouth 3 (three) times daily. May take an additional 25mg tablet as needed for palpitations. 07/29/2017@am potassium chloride SA (K-DUR,KLOR-CON) 20 MEQ tablet Take 20 mEq by mouth daily. 07/28 rabeprazole (ACIPHEX) 20 MG tablet Take 20 mg by mouth 2 (two) times daily. 07/29/2017 @am rivaroxaban (XARELTO) 20 MG tablet Take 20 mg by mouth daily with dinner. 07/28/2017@p m tiotropium (SPIRIVA) 18 MCG inhalation capsule Inhale 18 mcg into the lungs daily. @am ALLERGIES Allergies Allergen Reactions Cardizem [Diltiazem] Hives Localized near IV site Celecoxib Other (See Comments) unknown Ciprofloxacin Rash Flecainide Other (See Comments) unknown Propafenone Other (See Comments) Unknown Crestor [Rosuvastatin] Muscle Pain "muscle spasms" Gluten Meal GI Distress Milk-Related Compounds GI Distress Other-Drug GI Distress "kapidex" SCHEDULED MEDS bisoprolol 10 mg Oral BID [START ON 08/01/2017] digoxin 0.0625 mg Oral Daily dofetilide 500 mcg Oral 2 times per day ezetimibe 10 mg Oral Daily furosemide 20 mg Intravenous Daily guaiFENesin 600 mg Oral BID ipratropium 1 spray Each Nare TID mometasone 220 mcg Inhalation Daily pantoprazole 40 mg Oral QAM AC predniSONE 40 mg Oral Daily with breakfast rivaroxaban 20 mg Oral Daily with dinner sodium chloride 10 mL Intravenous 2 times per day tiotropium 18 mcg Inhalation Daily IV INFUSIONS Laboratory values which I reviewed 07/31/2017 are as follows: LABS Recent Labs Lab 07/30/17 0557 07/29/17 190 NA 134* 134* K 3.7 4.2 CL 102 101 CO2 22* 23 ANIONGAP 14 14 GLUF 97 114* BUN 10 11 CREATININE 0.7 1.0 BCR 14 11 CA 8.7 8.2* EGFR >60 58* Recent Labs Lab 07/31/17 0515 07/30/17 0557 07/29/17 190 WBC 7.11 7.64 7.16 RBC 4.66 4.57 4.67 HGB 14.6 14.3 14.4 HCT 41.9 41.4 42.9 MCV 89.9 90.5 91.9 MCH 31.3 31.2 30.9 MCHC 34.8 34.4 33.6 RDW 47.7 48.6 49.0 PLT 177 141* 150 MPV 10.4 10.1 10.3 DIFFTYPE AUTOMATED AUTOMATED AUTOMATED Recent Labs Lab 07/29/17 1903 INR 1.7 No results for input(s): PTT in the last 168 hours. No results for input(s): CHOL, LDL, HDL, TRIG in the last 168 hours. Imaging studies which I reviewed 07/31/2017 are as follows: IMAGING Xr Chest 1 View Result Date: 07/31/2017 1. Persistent subtle infiltrate perhaps with minimal effusion in the right lung base statu s post right mastectomy with breast prosthesis. Electronically signed by MD collin Polanco 07/31/2017 6:51 AM Latest VS: BP 119/67 (BP Location: Right upper arm) | Pulse 108 | Temp 98 F (36.7 C) (Oral) | Resp 18 | Ht 1.651 m (5' 5") | Wt 71.2 kg (157 lb) | SpO2 95% | ? No | BMI 26.13 kg/m Vital sign ranges for last 24hrs: Input and output for last 24hrs: Temp: [97.7 F (36.5 C)-98.1 F (36.7 C)] 98 F (36.7 C) Heart Rate: [80-130] 108 Resp: [16-20] 18 BP: (97-150)/(55-81) 119/67 SpO2 Av.8 % Min: 93 % Max: 96 % could not be evaluated. This SmartLink does not work with rows of the type: 07/30 0700 - 07/31 1859 In: 885 [P.O.:320; I.V.:565] Out: 3025 [Urine:3025] Body mass index is 26.13 kg/m.; Body surface area is 1.78 meters squared. REVIEW OF SYSTEMS: Negative except for pertinent items noted in HPI. Review of Systems Constitutional: POSITIVE for fatigue. HENT: Negative for nosebleeds. Eyes: Negative for visual disturbance. Respiratory: POSITIVE for cough and shortness of breath. Cardiovascular: Negative for chest pain, palpitations and leg swelling. Gastrointestinal: Negative for nausea, vomiting, abdominal pain and blood in stool. Genitourinary: Negative for hematuria. Musculoskeletal: Negative for myalgias, back pain and arthralgias. Skin: Negative for color change. Neurological: Negative for dizziness, syncope and numbness. Hematological: Does not bruise/bleed easily. Psychiatric/Behavioral: The patient is not nervous/anxious. PHYSICAL EXAM: BP 119/67 (BP Location: Right upper arm) | Pulse 108 | Temp 98 F (36.7 C) (Oral) | R noreen 18 | Ht 1.651 m (5' 5") | Wt 71.2 kg (157 lb) | SpO2 95% | ? No | BMI 26.13 kg/m General Appearance: Alert, oriented, cooperative, no distress, appears stated age HEENT: Extraocular movements intact. Pupils round and reactive. No xanthelasmas. No jaundic e. NECK: No JVD, No lymphadenopathy. Trachea is at midline. CARDIAC: Normal S1 and S2 heart sounds. Irregular, tachy. No murmurs, rubs, or gallops. Non -displaced, non-sustained apical impulse. CHEST: Normal symmetrical chest excursion. Decreased bilateral air entry with no crackles o r wheezing. ABDOMEN: Non tender, non distended, bowel sounds present, no organomegaly. EXTREMITIES: 2+ pulses radial and pedal, symmetric. No edema NEURO: No focal deficits. Normal bulk, power, and tone. SKIN: No bruises or rash. Warm and dry. Admit Weight: Weight: 72.6 kg (160 lb) Current weight: Weight: 71.2 kg (157 lb) Signed by: Martin Kelley MD 07/31/2017, 9:47 PM Gurpreet Holman MD - 07/30/2017 11:10 AM PST Consult* by Gurpreet Fall MD at 07/30/17 1110 Author: Gurpreet Fall MD Service: Cardiology Author Type: Physician Filed: 07/30/17 2221 Date of Service: 07/30/17 1110 Status: Signed Infantry Weapons Officer: Gurpreet Fall MD (Physician) [facility] Service: Cardiology Initial Consult Note Name of Etl Inform[employer] Developer: Gurpreet Fall MD Date of Admission: 07/29/2017 Reason for Consultation: Atrial fibrillation Requesting Physician: Dr. Sánchez History Obtained From: patient ASSESSMENT & PLAN Atypical atrial flutter with variable AV conduction failed cardioversion twice in this hosp ital visit Long history of atrial tachycardia follows with EP- [facility] Hx of s/p successful ablation of stacey tach 2004. Second EPS in 2005 for recurrent PSVT sh owed only non-sustained LA tach- Did not tolerate Class Ic agent. Successfully suppressed wi th dofetilide- however Tikosyn was discontinued 04/[address] Elijah Whalen because of inade quate control of symptoms and reported atrial fibrillation during eye surgery Acute diastolic heart failure exacerbation- preserved LV systolic function EF 55% on most r ecent echo with moderately dilated LA Acute asthma exacerbation RSV -URI infection Flu Hx of multiple abdominal surgeries- bowel surgeries hx of bowel obstruction Hx of Pulmonary embolism Hx of Sjogren's syndrome Hx of Right breast cancer ([id number] s/p mastectomy & XRT) Will continue amiodarone drip and attempt digoxin loading for rate control Will continue and increase Metoprolol dose to 75mg Q6hr Continue Xarelto for anticoagulation Her asthma exacerbation and RSV URI infection possibly making rate control difficult Continue management for acute asthma exacerbation per hospitalist Given advanced conduction system abnormalities will consult Dr. Kelley for ep management- if in adequate rate control might need EPS with possibility of ablation for atypical flutter o r AV carter ablation with VVI pacing- discussed her condition, advanced conduction system abn ormalities, her management options in detail with patient and all questions answered . CHIEF COMPLAINT: Palpitations, SOB HISTORY OF PRESENT ILLNESS: The patient is a 71 y.o. female with long hx of atrial fibrillation was following with EP i n [facility] with hx of ablationX2 several years back and was on Tikosyn for rhythm control- was s topped 6 months back as it is not helping keep in sinus. She presents to [facility] with SOB and palpitations found to be in atrial fibrillation RVR with no response to IV medications- a DCCV was attempted which maintained sinus rhythm for an hour and she converted back to at rial fibrillation. She was loaded with amiodarone and was transferred to [facility] on amiodarone drip- a cardioversion with 200J was again attempted in [facility] ER as she was persistently tachy cardic to 130-140- she converted to sinus for a brief moment only to go right back into atri al fibrillation. Presenting symptoms at the outside facility were cough, palpitations and sh ortness of breath. The symptoms are of severe severity, occuring all day and lasting 24 hour s per episode. Aggravating factors: walking. Relieving factors: none. Associated signs and s ymptoms: fatigue and lower extremity edema. 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 Saw family doctor end of June HR at that time was 150 but apparently, s he was asymptomatic. At home HR 60-110. Patient recently due to cough and respiratory illnes s at the end of June prescribed 2 rounds of antibiotic and tamiflu with minimal relief. Stopped taking Tykosin 6 months. Takes Xarelto for Afib. She is out of bed in a chair with h usband by the bedside. She denies any chest pain, SOB. She complaints fatigue. Denies any or thopnea, PND, edema. Says her palpitations have improved some what but is concerned about he r heart rate- which increases more than 130 with minimal exertion. REVIEW OF SYSTEMS Negative except for pertinent items noted in HPI. Review of Systems Constitutional: Positive for fatigue. HENT: Negative for nosebleeds. Eyes: Negative for visual disturbance. Respiratory: Positive for cough and shortness of breath. Cardiovascular: as per note Gastrointestinal: Negative for nausea, vomiting, abdominal pain and blood in stool. Genitourinary: Negative for hematuria. Musculoskeletal: Negative for myalgias, back pain and arthralgias. Skin: Negative for color change. Neurological: Negative for dizziness, syncope and numbness. Hematological: Does not bruise/bleed easily. Psychiatric/Behavioral: The patient is not nervous/anxious. PAST MEDICAL & SURGICAL HISTORY Past Medical History Diagnosis Date Asthma Atrial tachycardia (HCC) Breast cancer (HCC) Diverticulitis Fibromyalgia H/O cardiac radiofrequency ablation Mitral valve prolapse Pulmonary embolism (HCC) Sjogren's disease (HCC) Small bowel obstruction Tenosynovitis Thyroid nodule TMJ (dislocation of temporomandibular joint) Past Surgical History Procedure Laterality Date ABDOMINAL HERNIA REPAIR APPENDECTOMY BLADDER SUSPENSION Bunions surgery CARDIAC ELECTROPHYSIOLOGY MAPPING AND ABLATION CARPAL TUNNEL RELEASE ECTOPIC SURGERY Fibrocystic breasts HEMORRHOID SURGERY HYSTERECTOMY LAPAROSCOPIC LIVER CYST FENESTRATION LYMPH NODE DISSECTION MASTECTOMY SINUS SURGERY MEDICATIONS Home Medications Prescriptions Prior to Admission Medication Sig Dispense Refill Last Dose budesonide (PULMICORT) 180 MCG/ACT inhaler Inhale 3 puffs into the lungs 2 (two) times daily. 07/29/2017@am carboxymethylcellulose (REFRESH PLUS) 0.5 % SOLN Place 1 drop into both eyes 3 (three) times daily as needed. 07/29/2017@am ezetimibe (ZETIA) 10 MG tablet Take 1 tablet by mouth daily. 0 07/29/2017@am fluticasone (FLONASE) 50 MCG/ACT nasal 1 spray by Each Nare route 2 (two) times daily. 07/29/2017@am furosemide (LASIX) 20 MG tablet Take 20 mg by mouth daily. 07/29/2017@am ipratropium (ATROVENT) 0.03 % nasal 1 spray by Each Nare route 3 (three) times daily. 07/29/2017@am metoprolol (LOPRESSOR) 50 MG tablet Take 75 mg by mouth 3 (three) times daily. May take an additional 25mg tablet as needed for palpitations. 07/29/2017@am potassium chloride SA (K-DUR,KLOR-CON) 20 MEQ tablet Take 20 mEq by mouth daily. 07/28 rabeprazole (ACIPHEX) 20 MG tablet Take 20 mg by mouth 2 (two) times daily. 07/29/2017 @am rivaroxaban (XARELTO) 20 MG tablet Take 20 mg by mouth daily with dinner. 07/28/2017@p m tiotropium (SPIRIVA) 18 MCG inhalation capsule Inhale 18 mcg into the lungs daily. @am Inhospital Medications digoxin 0.25 mg Intravenous Q6H digoxin 0.5 mg Intravenous Once ezetimibe 10 mg Oral Daily furosemide 20 mg Intravenous Daily ipratropium 1 spray Each Nare TID metoprolol 75 mg Oral TID mometasone 220 mcg Inhalation Daily pantoprazole 40 mg Oral QAM AC predniSONE 40 mg Oral Daily with breakfast rivaroxaban 20 mg Oral Daily with dinner tiotropium 18 mcg Inhalation Daily amiodarone infusion Allergies Allergies Allergen Reactions Cardizem [Diltiazem] Hives Localized near IV site Celecoxib Other (See Comments) unknown Ciprofloxacin Rash Flecainide Other (See Comments) unknown Propafenone Other (See Comments) Unknown Crestor [Rosuvastatin] Muscle Pain "muscle spasms" Gluten Meal GI Distress Milk-Related Compounds GI Distress Other-Drug GI Distress "kapidex" FAMILY HISTORY No family history on file. SOCIAL HISTORY Social History Social History Marital status: Spouse name: N/A Number of children: N/A Years of education: N/A Occupational History Not on file. Social History Main Topics Smoking status: Never Smoker Smokeless tobacco: Never Used Alcohol use Not on file Drug use: Unknown Sexual activity: Not on file Other Topics Concern Not on file Social History Narrative No narrative on file PHYSICAL EXAM Vital Signs: BP 141/88 (BP Location: Left leg) | Pulse 118 | Temp 97.9 F (36.6 C) (Oral) | Resp 1 8 | Ht 1.651 m (5' 5") | Wt 72.4 kg (159 lb 9.8 oz) | SpO2 93% | ? No | BM I 26.56 kg/m Intake/Output Summary (Last 24 hours) at 07/30/17 1111 Last data filed at 07/30/17 1000 Gross per 24 hour Intake 0 ml Output 1950 ml Net -1950 ml Constitutional: Well-developed. Neck: No JVD present. No thyromegaly present. Cardiovascular: Tachy Irregular rhythm, S1 normal and S2 normal. No murmur heard. Pulses:+2 B/L Pulmonary/Chest: Effort normal and breath sounds normal. +ve wheeze b/l wheezes. Decreased airentry bases b/l rales. Abdominal: Soft. No tenderness. Musculoskeletal: No edema. Neurological: Alert. No cranial nerve deficit. Skin: Warm and dry. DATA Recent Labs Lab 07/30/17 0557 NA 134* K 3.7 CO2 22* BUN 10 CREATININE 0.7 MG 1.7 Recent Labs Lab 07/30/17 0558 07/29/17 1903 CKTOTAL -- 81 CKMB -- <1.0 CKMBINDEX -- UNABLE TO CALCULATE TROPONINI 0.025 -- Recent Labs Lab 07/30/17 0557 WBC 7.64 HGB 14.3 HCT 41.4 MCV 90.5 PLT 141* EKG: Last Echo: Impression 1. Atrial fibrillation with rapid ventricular response. 2. The left ventricle is normal in size, wall thickness and systolic function EF 55%. 3. The right ventricle is normal in size and function. 4. Moderate mitral regurgitation and moderately enlarged left atrium. 5. Moderate tricuspid regurgitation with no pulmonary hypertension. 6. There is no pericardial effusion. Thank you for allowing me to participate in the care of this patient. Code Status: Full Code Primary Care Physician: No primary care provider on file. Gurpreet Fall MD documented in t his encounter ED Notes Conversion Transaction, Provider Unknown - 07/30/2017 12:12 AM PSTFormatting of this note m ight be different from the original. ED Notes by Enma Rand RN at 07/30/1711 Author: Enma Rand RN Service: (none) Author Type: Registered Nurse Filed: 07/30/1711 Date of Service: 07/30/1711 Status: Signed Infantry Weapons Officer: Enma Rand RN (Registered Nurse) Pt quietly sleeping Enma Rand RN 07/30/1711 onver el Transaction, Provider Unknown - 07/29/2017 11:15 PM PST ED Notes by Enma Rand RN at 07/29/172314 Author: Enma Rand RN Service: (none) Author Type: Registered Nurse Filed: 07/29/172314 Date of Service: 07/29/172314 Status: Signed Infantry Weapons Officer: Enma Rand RN (Registered Nurse) Pt fully awake Dr Mendes at pt BS Enma Rand RN 07/29/172314 onver el Transaction, Provider Unknown - 07/29/2017 10:53 PM PST ED Notes by Enma Rand RN at 07/29/172252 Author: Enma Rand RN Service: (none) Author Type: Registered Nurse Filed: 07/29/172258 Date of Service: 07/29/172252 Status: Signed Infantry Weapons Officer: Enma Rand RN (Registered Nurse) Pt continues in Afib, per Dr Mendes she will leave it to the professor of theology to resolve. Pt spou se at pt BS Enma Rand RN 07/29/172258 onver el Transaction, Provider Unknown - 07/29/2017 10:52 PM PST ED Notes by Enma Rand RN at 07/29/172251 Author: Enma Rand RN Service: (none) Author Type: Registered Nurse Filed: 07/29/172257 Date of Service: 07/29/172251 Status: Signed Infantry Weapons Officer: Enma Rand RN (Registered Nurse) Sync cardioversion at 200J. Pt tolerated well Enma Rand RN 07/29/172257 onver el Transaction, Provider Unknown - 07/29/2017 10:52 PM PST ED Notes by Enma Rand RN at 07/29/172251 Author: Enma Rand RN Service: (none) Author Type: Registered Nurse Filed: 07/29/172308 Date of Service: 07/29/172251 Status: Signed Infantry Weapons Officer: Enma Rand RN (Registered Nurse) NC at 8L Enma Rand RN 07/29/172308 Diana Stringer MD - 07/29/2017 10:13 PM PST ED Provider Notes by Diana Mendes MD at 07/29/172212 Author: Diana Mendes MD Service: Emergency Department Author Type: Physician Filed: 07/30/17 0418 Date of Service: 07/29/172212 Status: Signed Infantry Weapons Officer: Diana Mendes MD (Physician) Procedure Orders: 1. Electrical Cardioversion [[id number]] ordered by Tee Wilcox MD at 07/29/172218 10:14 PM Assumed care of the patient from Dr. Wilcox, ED physician at shift change. Please refer to his note for initial management. Patient was transferred to [facility] with plan for a dmission for atrial fibrillation with RVR. Patient was cardioverted at [facility] and is currently on an amiodarone drip. Patient's HR has consistently been 120-140's and is still i n RVR. After initial consult, per Dr. Wilcox's note, patient declined repeat cardioversion, despite professor of theology's consultation. However after evaluation by Dr. Allred, [facility], patient is willing to have repeat cardioversion performed. Will obtain consent and proce ed with cardioversion. 10:22 PM Patient evaluation. I kindly introduced myself to the patient and obtained consent for the electrical cardioversion. Patient states that the initial decline for cardioversion may have been a misunderstanding. Will proceed with electrical cardioversion. 10:40 PM Electrical cardioversion performed. 200J unsuccessful. Patient tolerated without a ny complications. Will give the patient metoprolol for rate control. 11:26 PM Patient revaluation and updated her and her on status. 11:[address] Allred on status. Procedures Additional Documentation Electrical Cardioversion Date/Time: 07/29/2017 10:40 PM Performed by: DIANA MENDES Authorized by: DIANA MENDES Consent: Consent obtained: Verbal and written Consent given by: Patient and spouse Risks discussed: Induced arrhythmia, pain, and cutaneous burn Alternatives discussed: No treatment, alternative treatment and rate-control medication Vickery protocol: Procedure explained and questions answered to patient or proxy's satisfaction: yes Relevant documents present and verified: yes Test results available and properly labeled: yes Imaging studies available: yes Required blood products, implants, devices, and special equipment available: yes Site/side marked: yes Immediately prior to procedure a time out was called: yes Patient identity confirmed: Verbally with patient and arm band Pre-procedure details: Cardioversion basis: Emergent Rhythm: Atrial fibrillation Electrode placement: Anterior-lateral Attempt one: Cardioversion mode: Synchronous Waveform: Biphasic Shock (Joules): 200 Shock outcome: No change in rhythm Post-procedure details: Patient status: Awake Patient tolerance of procedure: Tolerated well, no immediate complications Attending Provider Note: Diana Carvajal MD personally performed the services described in this documentation, as scribed by Wyatt Pearson in my presence, and it is both accurat e and complete. Chart Reviewed and Completed: 07/30/2017 1:58 AM Scribe: Alena Pearson,Marine, scribing for and in the presence of Diana Mendes MD. Signed by: Marine Orourke 07/30/2017 1:58 AM Diana Mendes MD 07/30/178 onversion Transact ion, Provider Unknown - 07/29/2017 9:53 PM PSTFormatting of this note might be different fr om the original. ED Notes by Enma Rand RN at 07/29/172152 Author: Enma Rand RN Service: (none) Author Type: Registered Nurse Filed: 07/29/172153 Date of Service: 07/29/172152 Status: Signed Infantry Weapons Officer: Enma Rand RN (Registered Nurse) Dr Allred at BS Enma Rand RN 07/29/172153 hTee chiu MD - 07/29/2017 6:48 PM PSTFormatting of this note might be different from the or iginal. ED Provider Notes by Tee Wilocx MD at 07/29/171847 Author: Tee Wilcox MD Service: Emergency Department Author Type: Physician Filed: 07/29/172120 Date of Service: 07/29/171847 Status: Signed Infantry Weapons Officer: Tee Wilcox MD (Physician) [facility] Department of Emergency Medicine ED Pre-arrival Provider to Provider 07/29/2017 Pre-arrival Provider Another ED Provider Name anel Pertinent History and Concerns sob, palpitations, rapid HR, a-fib RVR. cardioverted at 200 joules, went to SR, then back into a-fib. IV right AC, unable to get anything on left. hx of breast CA, right mastectomy, lymphedema. ablation in 2004 and 2005. allergic to cardia zem. Relevant Medications metoprolol 5 mg x 3, 150 mg amiodarone, amiodarone gtt 33.3 ml/hr. 50 mcg propofol Current Reported Vital Signs BP 120/78, HR 130, RR 20, sats 95-98 History of Present Illness Patient Identification Adriana Flynn is a 71 y.o. female. Patient information was obtained from patient, EMS personnel and past medical records. History/Exam limitations: none. Patient presented to the Emergency Department Ambulance Room:09/15 Chief Complaint Chief Complaint Patient presents with Tachycardia Afib with RVR new onset per EMS 71 y.o. female with cough and congestion. Patient states that she's been dealing with upper respiratory symptoms for the last couple weeks. She went to [facility] and wa s found to be in atrial fibrillation with rapid ventricular response. There is no initial im provement with metoprolol so she was electrically cardioverted which worked briefly. She harriett t back into rapid atrial fibrillation. They contacted our hospital for transfer and discusse d the case with Dr. Fall (cardiology) who recommended amiodarone bolus and drip which w as started around 230. She's had no sustained improvement in her heart rate since that time. Blood pressure remained stable. She denies any significant pain or palpitations. No fevers or chills. X-ray there was unremarkable. BMP was elevated around 800 and she received Lasix. Symptoms are described as moderate. Primary Care Doctor: No primary care provider on file. No past medical history on file. No past surgical history on file. Prior to Admission medications Not on File Allergies Allergen Reactions Cardizem [Diltiazem] Hives Localized near IV site Ciprofloxacin Rash Crestor [Rosuvastatin] Muscle Pain "muscle spasms" Gluten Meal GI Distress Milk-Related Compounds GI Distress Other-Drug GI Distress "kapidex" Social History Social History Marital status: N/A Spouse name: N/A Number of children: N/A Years of education: N/A Occupational History Not on file. Social History Main Topics Smoking status: Not on file Smokeless tobacco: Not on file Alcohol use Not on file Drug use: Unknown Sexual activity: Not on file Other Topics Concern Not on file Social History Narrative No narrative on file No family history on file. Review of Systems Positive for: Cough and congestion, abnormal ECG No fever, chills, nausea or vomiting. No vision changes, hemoptysis. No headache, chest pain, abdominal pain, weakness or rash. No difficulty with urination or bowel movements. No other complaints. See HPI for further relevant details. All systems otherwise negative, except as recorded above and as recorded in the HPI. Physical Exam Vitals: 07/29/17200607/29/17200707/29/17201107/29/172026 BP: (!) 138/91 (!) 138/91 134/62 151/67 BP Location: Left upper arm Right upper arm Pulse: 131 138 136 134 Resp: 20 18 Temp: TempSrc: SpO2: 95% 94% 96% 92% Weight: INTERPRETATION OF VITALS Pulse Oximetry interpretation: Normal Tachycardic. Otherwise normal PHYSICAL EXAM Appearance: Alert. No acute distress. Head: Normal external exam. Eyes: EOMI, PERRL, no scleral icterus. ENT: Normal external ENT inspection. Neck: Supple. FROM. CVS: Tachycardic. Irregular.. Pulses normal. Respiratory: No respiratory distress. Coarse breath sounds bilaterally. Abdomen: Soft and nontender. No rebound or guarding. Genitourinary: Deferred. Back: Moves without difficulty. Skin: Skin warm and dry. Extremities: No deformity. Neurological: Moves all extremities. No gross deficit. Medical Decision Making and Emergency Department Course ED Department Course: 6:48 PM Adriana Flynn is a 71 y.o. female who presents with a chief complaint of cough and congestion . Differential diagnosis includes heart failure, viral syndrome, bronchitis, arrhythmia, oth er. Patient is still tachycardic. We will continue amiodarone drip, repeat screening labs an d ECG and contact cardiology. ECG shows atrial flutter at 131 beats per minute. Similar to previous.. 7:25 PM Discussed the case with Dr. Fall who recommends offering repeat electrical cardioversi on. If she is not willing to just continue the Amiodarone and monitor on the hospitalist se rvice. Patient declines repeat electrical cardioversion. She is asymptomatic in regards to palpita tions. No chest pain and her blood pressure is appropriate. Her heart rate is trending down. 8:06 PM Right EJ placed by myself under standard technique. 9:21 PM Discussed the case with Dr. Martinez who accepts the patient for admission. The patient was hypertensive in the Emergency Department today. Differential for hyperten el in the emergency department is extensive and not limited to pain, anxiety, established and uncontrolled hypertension, new hypertension, poor medication compliance vs other. [place] ent will follow up as an outpatient for ongoing concerns and is welcome to return for re-carrie luation at any time. . Records Reviewed Old medical records. Previous electrocardiograms. Nursing notes. Ambulance run sheet. Previous radiology studies. Laboratory Evaluation Results Procedure Component Value Ref Range Date/Time Cardiac Panel [[id number]] (Abnormal) Collected: 07/29/171902 Order Status: Completed Updated: 07/29/171955 WBC 7.16 3.80 - 11.00 K/uL RBC 4.67 3.70 - 5.10 M/uL HGB 14.4 11.3 - 15.5 g/dL HCT 42.9 34.0 - 46.0 % MCV 91.9 80.0 - 100.0 fl MCH 30.9 27.0 - 34.0 pg MCHC 33.6 32.0 - 35.5 g/dL RDW SD 49.0 37 - 53 fl PLT 150 150 - 400 K/uL MPV 10.3 fl DIFF TYPE AUTOMATED NEUTROPHILS 63.29 % LYMPHOCYTES 23.16 % MONOCYTES 11.26 % EOSINOPHILS 1.24 % BASOPHILS 1.05 % NEUTROPHILS ABS 4.53 1.90 - 7.40 K/uL LYMPHOCYTES ABS 1.66 1.00 - 3.90 K/uL MONOCYTES ABS 0.81 (H) 0.00 - 0.80 K/uL EOSINOPHILS ABS 0.09 0.00 - 0.50 K/uL BASOPHILS ABS 0.08 0.00 - 0.10 K/uL SODIUM 134 (L) 135 - 145 mmol/L POTASSIUM 4.2 3.5 - 4.9 mmol/L CHLORIDE 101 99 - 109 mmol/L CO2 23 23 - 32 mmol/L ANION GAP AGAP 14 5 - 20 mmol/L GLUCOSE 114 (H) 65 - 99 mg/dL BUN 11 8 - 25 mg/dL CREATININE 1.0 0.50 - 1.00 mg/dL BUN/CREAT 11 CALCIUM 8.2 (L) 8.5 - 10.5 mg/dL TOTAL PROTEIN 6.5 6.3 - 8.2 g/dL Albumin 2.8 (L) 3.3 - 4.8 g/dL GLOBULIN 3.7 1.3 - 4.9 g/dL A/G 0.7 (L) 1.0 - 2.4 TBIL 1.2 0.1 - 1.5 mg/dL ALK PHOS 76 35 - 115 U/L AST 45 10 - 45 U/L ALT 42 10 - 65 U/L EGFR 58 (L) >60 mL/min/1.73m2 CPK 81 30 - 240 U/L INR 1.7 APTT 29 23 - 32 seconds MMB <1.0 0.5 - 3.6 ng/mL CK-MB Index UNABLE TO CALCULATE POC cardiac troponin [[id number]] Collected: 07/29/171905 Order Status: Completed Updated: 07/29/171935 POC CARDIAC TROPONIN 0.02 0.00 - 0.10 ng/mL Lab Interpretation I have reviewed lab results from the emergency department workup and abnormal results have been posted to the chart. Pertinent positive and negative findings have been addressed appr opriately. Radiology and ECG Evaluation Imaging Results None ECG from 1850: Atrial flutter with a ventricular rate of 131 bpm. QRS, QT, and axis are nor mal. No ST segment elevations or depression. No significant Q waves. Good R wave progression through the precordial leads. No acute ischemia. In comparison with an old ECG from [facility] today there are no significant changes. This study has been independently viewed and int erpreted by me. ED Diagnoses Final diagnoses Atrial flutter with rapid ventricular response (HCC) Chronic cough Congestive heart failure, unspecified congestive heart failure chronicity, unspecified con gestive heart failure type (HCC) Disposition: ED Disposition ED Disposition Condition Comment Admit/Observation Bed request special needs: Telemetry Diagnosis?: rapid aflutter Follow-up Information None Discharge Medications: New Prescriptions No new medications This document has been prepared with a voice recognition system. The possibility of "sound alike" production ski repairer errors, addition and/or deletions may occur. If there is any question p lease contact the author of the document. Procedures Additional Documentation Procedures Tee Wilcox MD 07/29/172120 onversion Transactio n, Provider Unknown - 07/29/2017 6:41 PM PST ED Notes by Makenzie Chaparro RN at 07/29/171840 Author: Makenzie Chaparro RN Service: (none) Author Type: Registered Nurse Filed: 07/29/171840 Date of Service: 07/29/171840 Status: Signed Infantry Weapons Officer: Makenzie Chaparro RN (Registered Nurse) Bed: 03 Expected date: Expected time: Means of arrival: Comments: [place] transfer Makenzie Chaparro RN 07/29/17 184 onver el Transaction, Provider Unknown - 07/29/2017 6:32 PM PST ED Notes by Makenzie Chaparro RN at 07/29/17 183 Author: Makenzie Chaparro RN Service: (none) Author Type: Registered Nurse Filed: 07/29/171831 Date of Service: 07/29/171831 Status: Signed Infantry Weapons Officer: Makenzie Chaparro RN (Registered Nurse) On amiodarone gtt Makenzie Chaparro RN 07/29/171831 docume nted in this encounter Miscellaneous Notes Plan of Care - Conversion Transaction, Provider Unknown - 08/02/2017 4:19 PM PST Plan of Care by Makayla Covington RN at 08/02/17 1619 Author: Makayla Covington RN Service: (none) Author Type: Registered Nurse Filed: 08/02/17 1644 Date of Service: 08/02/17 1619 Status: Addendum Infantry Weapons Officer: Makayla Covington RN (Registered Nurse) Related Notes: Original Note by Makayla Covington RN (Registered Nurse) filed at 08/02/17 162 1 Daily Care Daily care needs are met Adequate for Discharge Discharge Barriers Patient's discharge needs are met Adequate for Discharge Pain Patient's pain/discomfort is manageable Adequate for Discharge Safety Patient will be injury free during hospitalization Adequate for Discharge Patient independent in her room t/o shift. SB on monitor t/o shift. Tikosyn dose for 1800 h as been ordered, QTC @ 0.438. Per Dr. Kelley's note, patient can leave 2 hours after final do se. Patient and ok with this plan. RX Pharmacy brought medications up to patient's r oom. Currently sleeping with at side. Hourly rounding will continue. Makayla Covington RN 08/02/17 @ 1621 lan o f Care - Conversion Transaction, Provider Unknown - 08/02/2017 1:26 AM PSTFormatting of thi s note might be different from the original. Plan of Care by Julia Benjamin RN at 08/02/17125 Author: Julia Benjamin RN Service: (none) Author Type: Registered Nurse Filed: 08/02/17125 Date of Service: 08/02/17125 Status: Signed Infantry Weapons Officer: Julia Benjamin RN (Registered Nurse) Problem: Pain Goal: Patient's pain/discomfort is manageable Assess and monitor patient's pain using appropriate pain scale. Collaborate with interdisci plinary team and initiate plan and interventions as ordered. Re-assess patient's pain level approximately 1-2 hours after pain management intervention. Premedicate as needed. Outcome: Progressing Pt has no c/o pain. Pt able to verbally express her level of pain. lan o f Care - Aisha Fisher - 08/01/2017 5:33 PM PSTFormatting of this note might be different fr om the original. Plan of Care by Aisha Fisher NP at 08/01/17 1733 Author: Aisha Fihser NP Service: Cardiology Author Type: Nurse Practitioner Filed: 08/01/17 1734 Date of Service: 08/01/171732 Status: Signed Infantry Weapons Officer: Aisha Fisher NP (Nurse Practitioner) QTC remains stable. 5th dose of Tikosyn to be given 08/02/2017 at 6pm. From EP standpoint, may be ready for discharge tomorrow PM (08/02/2017) 2 hours aft er 5th Tikosyn dose. MURIEL Stevens lan of Care - Conversion T ransaction, Provider Unknown - 08/01/2017 11:18 AM PSTFormatting of this note might be diffe rent from the original. Plan of Care by Zari Bingham RN at 08/01/171117 Author: Zari Bingham RN Service: (none) Author Type: Registered Nurse Filed: 08/01/171117 Date of Service: 01/17/18 1118 Status: Signed Infantry Weapons Officer: Zari Bingham RN (Registered Nurse) Problem: Pain Goal: Patient's pain/discomfort is manageable Assess and monitor patient's pain using appropriate pain scale. Collaborate with interdisci plinary team and initiate plan and interventions as ordered. Re-assess patient's pain level approximately 1-2 hours after pain management intervention. Premedicate as needed. Outcome: Progressing Pt denies pain at this time. Problem: Knowledge Deficit Goal: Patient/family/caregiver demonstrates understanding of disease process, treatment sandi n, medications, and discharge instructions Complete learning assessment and assess knowledge base. Outcome: Progressing Pt understands CHF and how to manage. Very knowledgeable in her medical status. Problem: Inadequate Gas Exchange Goal: Patient is adequately oxygenated and ventilation is improved Assess and monitor vital signs, oxygen saturation, respiratory status to include rate, dept h, effort, and lung sounds, mental status, cyanosis, and labs (ABG's). Monitor effects of m edications that may sedate the patient. Collaborate with respiratory therapy to administer medications and treatments. Outcome: Progressing Pt oxygen saturation 96%, unlabored breathing. Lungs are clear. lan o f Care - Conversion Transaction, Provider Unknown - 08/01/2017 4:50 AM PSTFormatting of thi s note might be different from the original. Plan of Care by Robert Buckley RN at 08/01/17449 Author: Robert Buckley RN Service: (none) Author Type: Registered Nurse Filed: 08/01/17449 Date of Service: 08/01/17449 Status: Signed Infantry Weapons Officer: Robert Buckley RN (Registered Nurse) Problem: Safety Goal: Patient will be injury free during hospitalization Assess and monitor vitals signs, neurological status including level of consciousness and o rientation. Assess patient's risk for falls and implement fall prevention plan of care and i nterventions per hospital policy. Ensure arm band on, uncluttered walking paths in room, adequate room lighting, call light a nd overbed table within reach, bed in low position, wheels locked, side rails up per policy, and non-skid footwear provided. Outcome: Progressing Pt steady on feet and independent in room and ambulating in halls. Problem: Inadequate Gas Exchange Goal: Patient is adequately oxygenated and ventilation is improved Assess and monitor vital signs, oxygen saturation, respiratory status to include rate, dept h, effort, and lung sounds, mental status, cyanosis, and labs (ABG's). Monitor effects of m edications that may sedate the patient. Collaborate with respiratory therapy to administer medications and treatments. Outcome: Progressing Pt saturating 93-98% on RA and denies SOB. lan o f Care - Conversion Transaction, Provider Unknown - 07/31/2017 2:13 PM PSTFormatting of thi s note might be different from the original. Plan of Care by Teri Baker RN at 07/31/171412 Author: Teri Baker RN Service: (none) Author Type: Registered Nurse Filed: 07/31/171413 Date of Service: 07/31/171412 Status: Signed Infantry Weapons Officer: Teri Baker RN (Registered Nurse) Mobility/activity is maintained at optimum level for patient Progressing Pt ambulates in room and hallway. Pt able to safely and independently ambulate. Pt independ ent in her adl's. Pt does not require device or extra time for mobility. VSS. WCTM lan o f Care - Conversion Transaction, Provider Unknown - 07/30/2017 9:57 PM PSTFormatting of thi s note might be different from the original. Plan of Care by Virginia Jacobs RN at 07/30/172156 Author: Virginia Jacobs RN Service: (none) Author Type: Registered Nurse Filed: 07/30/172156 Date of Service: 07/30/172156 Status: Signed Infantry Weapons Officer: Virginia Jacobs RN (Registered Nurse) Problem: Pain Goal: Patient's pain/discomfort is manageable Assess and monitor patient's pain using appropriate pain scale. Collaborate with interdisci plinary team and initiate plan and interventions as ordered. Re-assess patient's pain level approximately 1-2 hours after pain management intervention. Premedicate as needed. Outcome: Progressing Patient states pain is under control. Will continue to provide medication as well as comfor t measures as needed. Problem: Safety Goal: Patient will be injury free during hospitalization Assess and monitor vitals signs, neurological status including level of consciousness and o rientation. Assess patient's risk for falls and implement fall prevention plan of care and i nterventions per hospital policy. Ensure arm band on, uncluttered walking paths in room, adequate room lighting, call light a nd overbed table within reach, bed in low position, wheels locked, side rails up per policy, and non-skid footwear provided. Outcome: Progressing Bed in lowest position, wheels locked, side rails up per policy. Room free from clutter. Ca ll light and overbed table within reach. Patient uses call light appropriately. Adequate reji m lighting. Non-skid footwear provided. lan o f Care - Conversion Transaction, Provider Unknown - 07/30/2017 8:16 AM PSTFormatting of thi s note might be different from the original. Plan of Care by Teri Baker RN at 07/30/17815 Author: Teri Baker RN Service: (none) Author Type: Registered Nurse Filed: 07/30/17817 Date of Service: 07/30/17815 Status: Signed Infantry Weapons Officer: Teri Baker RN (Registered Nurse) Patient's pain/discomfort is manageable Progressing Pt has no c/o pain at this time. Pt is able to verbally express physical pain and needs. Pt alert and oriented and independent. VSS. WCTM lan o f Care - Conversion Transaction, Provider Unknown - 07/30/2017 3:13 AM PSTFormatting of thi s note might be different from the original. Plan of Care by Virginia Jacobs RN at 07/30/17312 Author: Virginia Jacobs RN Service: (none) Author Type: Registered Nurse Filed: 07/30/17312 Date of Service: 07/30/17312 Status: Signed Infantry Weapons Officer: Virginia Jacobs RN (Registered Nurse) Problem: Pain Goal: Patient's pain/discomfort is manageable Assess and monitor patient's pain using appropriate pain scale. Collaborate with interdisci plinary team and initiate plan and interventions as ordered. Re-assess patient's pain level approximately 1-2 hours after pain management intervention. Premedicate as needed. Outcome: Progressing Patient states pain is under control. Will continue to provide medication as well as comfor t measures as needed. Problem: Safety Goal: Patient will be injury free during hospitalization Assess and monitor vitals signs, neurological status including level of consciousness and o rientation. Assess patient's risk for falls and implement fall prevention plan of care and i nterventions per hospital policy. Ensure arm band on, uncluttered walking paths in room, adequate room lighting, call light a nd overbed table within reach, bed in low position, wheels locked, side rails up per policy, and non-skid footwear provided. Outcome: Progressing Bed in lowest position, wheels locked, side rails up per policy. Room free from clutter. Ca ll light and overbed table within reach. Patient uses call light appropriately. Adequate reji m lighting. Non-skid footwear provided. Problem: Daily Care Goal: Daily care needs are met Assess and monitor ability to perform self care and identify potential discharge needs. Outcome: Progressing Pt independent with ADL's Problem: Psychosocial Needs Goal: Demonstrates ability to cope with hospitalization/illness Assess and monitor patients ability to cope with his/her illness. Outcome: Progressing Patient able to verbalize needs appropriately and demonstrates adequate coping skills ischola jimenez - Conversion Transaction, Provider Unknown - 07/29/2017 10:56 PM PSTFormatting of th is note might be different from the original. Medication History by Pari Figueredo RPH at 07/29/172255 Author: Pari Figueredo RPH Service: Pharmacy Author Type: Pharmacist Filed: 07/29/17 1715 Date of Service: 07/29/172255 Status: Signed Infantry Weapons Officer: Pari Figueredo RPH (Pharmacist) Rx Admission Medication History Note I have reviewed the medication history for appropriate doses obtained by: Pharmacy Medicat ion History Info Print Press Operator. After reviewing the home medication list : I agree with the home medication list. - Verified tablets in pill box and through bottles - Old list from [facility] had Tikosyn on home medication list though patient was discon tinued from this 6 months previously. Please Review and Order Home Medications as necessary. Thanks Pari Figueredo, [facility] 07/29/2017 10:56 PM >> Yesy Villasenor CPhT 07/29/2017 22:39 Rx Medication History Info Print Press Operator Note Patients Preferred Pharmacy has been updated in EPIC: yes [id number] - [place], [place] - [address] [place] [address] Patients Allergies have been updated and marked as reviewed: yes Cardizem [diltiazem]; Celecoxib; Ciprofloxacin; Flecainide; Propafenone; Crestor [rosuvasta tin]; Gluten meal; Milk-related compounds; and Other-drug The following changes were made to the allergy list (if any): none Medication History provided by: Patient, Family Member, Medication Bottle and Patient Medi cation List Follow-up Issues: None - Pending Pharmacist Review High Risk Medications (dual source verification needed): Anticoagulants Patient currently taking Xarelto 20mg every evening. Changes made to the medication list include: patients brought in medication bottle s and SALES SUPPORT ASSOCIATE med list was updated accordingly. Reliability of information obtained: RELIABLE Additional Comments: none Medication history has been completed: *Awaiting Pharmacist Final Review* Yesy Villasenor CPhT 07/29/2017 10:38 PM docume nted in this encounter Plan of Treatment +--------+ + + + + | Date | Type | Specialty | Care Team | Description | +--------+ + + + + | 05/19/ | Office | Orthopedic Surgery | Tee Choi, | | | 2019 | Visit | | [address] | | | | | | [place] [address] | | | | | | [phone] | | | | | | | | +--------+ + + + + | 05/19/ | Appointment | Cardiology | Martin Kelley, | | 2019 | | | MD [address] | | | | | | [place] | | | | | | [place] [address] | | | | | | [phone] | | | | | | | | +--------+ + + + + | 11/26/ | Office | Cardiology | Martin Kelley, | | | 2020 | Visit | | MD [address] | | | | | | [place], | | | | | | [place] [address] | | | | | | [phone] | | | | | | | | +--------+ + + + + documented as of this encounter Procedures + +--------+ + + + | Procedure Name | Priori | Date/Time | Associated Diagnosis | Comments | | | ty | | | | + +--------+ + + + | BASIC METABOLIC | Routin | 08/02/2017 | | Results for this | | PANEL | e | 7:50 AM | | procedure are in the | | | | PST | | results section. | + +--------+ + + + | EXTERNAL LAB: CBC | Routin | 08/02/2017 | | Results for this | | | e | 5:03 AM | | procedure are in the | | | | PST | | results section. | + +--------+ + + + | EXTERNAL LAB: CBC | Routin | 08/01/2017 | | Results for this | | | e | 4:03 AM | | procedure are in the | | | | PST | | results section. | + +--------+ + + + | MAGNESIUM | Routin | 08/01/2017 | | Results for this | | | e | 4:03 AM | | procedure are in the | | | | PST | | results section. | + +--------+ + + + | BASIC METABOLIC | Routin | 08/01/2017 | | Results for this | | PANEL | e | 4:03 AM | | procedure are in the | | | | PST | | results section. | + +--------+ + + + | XR CHEST 1 VIEW | Routin | 07/31/2017 | | Results for this | | | e | 6:18 AM | | procedure are in the | | | | PST | | results section. | + +--------+ + + + | EXTERNAL LAB: CBC | Routin | 07/31/2017 | | Results for this | | | e | 5:15 AM | | procedure are in the | | | | PST | | results section. | + +--------+ + + + | THYROID PANEL WITH | Routin | 07/30/2017 | | Results for this | | TSH | e | 12:17 PM | | procedure are in the | | | | PST | | results section. | + +--------+ + + + | TROPONIN I | Routin | 07/30/2017 | | Results for this | | | e | 12:13 PM | | procedure are in the | | | | PST | | results section. | + +--------+ + + + | HISTORICAL | Timed | 07/30/2017 | | Results for this | | MICROBIOLOGY RESULT | | 11:52 AM | | procedure are in the | | | | PST | | results section. | + +--------+ + + + | TROPONIN I | Routin | 07/30/2017 | | Results for this | | | e | 5:58 AM | | procedure are in the | | | | PST | | results section. | + +--------+ + + + | EXTERNAL LAB: CBC | Routin | 07/30/2017 | | Results for this | | | e | 5:57 AM | | procedure are in the | | | | PST | | results section. | + +--------+ + + + | PHOSPHORUS | Routin | 07/30/2017 | | Results for this | | | e | 5:57 AM | | procedure are in the | | | | PST | | results section. | + +--------+ + + + | MAGNESIUM | Routin | 07/30/2017 | | Results for this | | | e | 5:57 AM | | procedure are in the | | | | PST | | results section. | + +--------+ + + + | COMPREHENSIVE | Routin | 07/30/2017 | | Results for this | | METABOLIC PANEL | e | 5:57 AM | | procedure are in the | | | | PST | | results section. | + +--------+ + + + | PHOSPHORUS | Routin | 07/29/2017 | | Results for this | | | e | 11:26 PM | | procedure are in the | | | | PST | | results section. | + +--------+ + + + | MAGNESIUM | Routin | 07/29/2017 | | Results for this | | | e | 11:26 PM | | procedure are in the | | | | PST | | results section. | + +--------+ + + + | HISTORICAL LAB PANEL | Routin | 07/29/2017 | | Results for this | | RESULT | e | 7:03 PM | | procedure are in the | | | | PST | | results section. | + +--------+ + + + | ECG 12 LEAD | Routin | 07/29/2017 | | Results for this | | | e | 6:50 PM | | procedure are in the | | | | PST | | results section. | + +--------+ + + + | XR CHEST 1 VIEW | Routin | 07/29/2017 | | Results for this | | | e | 4:24 PM | | procedure are in the | | | | PST | | results section. | + +--------+ + + + documented in this encounter Results Basic Metabolic Panel (08/02/2017 7:50 AM PST) + + + + + + | Component | Value | Ref Range | Performed | Pathologist | | | | | At | Signature | + + + + + + | Na | 139 | 135 - 145 | EXTERNAL | | | | | mmol/L | LAB | | + + + + + + | K | 4.1 | 3.5 - 4.9 | EXTERNAL | | | | | mmol/L | LAB | | + + + + + + | Cl | 107 | 99 - 109 mmol/L | EXTERNAL | | | | | | LAB | | + + + + + + | CO2 | 27 | 23 - 32 mmol/L | EXTERNAL | | | | | | LAB | | + + + + + + | Anion Gap | 9 | 5 - 20 mmol/L | EXTERNAL | | | | | | LAB | | + + + + + + | Glucose, | 90 | 65 - 99 mg/dL | EXTERNAL | | | Fasting | | | LAB | | + + + + + + | BUN | 18 | 8 - 25 mg/dL | EXTERNAL | | | | | | LAB | | + + + + + + | Creatinine | 0.83 | 0.50 - 1.00 | EXTERNAL | | | | | mg/dL | LAB | | + + + + + + | BUN/Creatin | 22 | | EXTERNAL | | | ine Ratio | | | LAB | | + + + + + + | Calcium | 8.6 | 8.5 - 10.5 | EXTERNAL | | | | | mg/dL | LAB | | + + + + + + | Estimated | >60Comment: GFR <60: | mL/min/1.73m2 | EXTERNAL | | | GFR | CHRONIC KIDNEY DISEASE, | | LAB | | | | IF FOUND OVER A 3 MONTH | | | | | | PERIOD.GFR <15: KIDNEY | | | | | | FAILURE.FOR | | | | | | AMERICANS, MULTIPLY THE | | | | | | CALCULATED GFR BY | | | | | | 1.210.Testing performed | | | | | | at [facility] [place] [address] | | | | | | [facility];[place] [address] | | | | + + + + + + + + | Specimen | + + | | + + + +---------+ + + | Performing | Address | City/State/Zipcode | Phone Number | | Organization | | | | + +---------+ + + | EXTERNAL LAB | | | | + +---------+ + + External Lab: CBC (08/02/2017 5:03 AM PST) + + + + + + | Component | Value | Ref Range | Performed | Pathologist | | | | | At | Signature | + + + + + + | WBC | 9.08 | 3.80 - 11.00 | EXTERNAL | | | | | K/uL | LAB | | + + + + + + | Non- | 4.08 | 3.70 - 5.10 | EXTERNAL | | | Red Blood | | M/uL | LAB | | | Cells | | | | | | Counted | | | | | + + + + + + | Hemoglobin | 12.6 | 11.3 - 15.5 | EXTERNAL | | | | | g/dL | LAB | | + + + + + + | Hematocrit, | 36.9 | 34.0 - 46.0 % | EXTERNAL | | | POC | | | LAB | | + + + + + + | MCV | 90.4 | 80.0 - 100.0 fl | EXTERNAL | | | | | | LAB | | + + + + + + | MCH | 30.8 | 27.0 - 34.0 pg | EXTERNAL | | | | | | LAB | | + + + + + + | MCHC | 34.1 | 32.0 - 35.5 | EXTERNAL | | | | | g/dL | LAB | | + + + + + + | RDW-CV | 50.3 | 37 - 53 fl | EXTERNAL | | | | | | LAB | | + + + + + + | Platelet | 202 | 150 - 400 K/uL | EXTERNAL | | | Count | | | LAB | | | Plasma | | | | | + + + + + + | MPV | 10.8 | fl | EXTERNAL | | | | | | LAB | | + + + + + + | Differentia | AUTOMATED | | EXTERNAL | | | l Type | | | LAB | | + + + + + + | % Segmented | 71.73 | % | EXTERNAL | | | | | | LAB | | | Neutrophils | | | | | + + + + + + | % | 20.48 | % | EXTERNAL | | | Lymphocytes | | | LAB | | + + + + + + | % Monocytes | 7.25 | % | EXTERNAL | | | | | | LAB | | + + + + + + | % | 0.14 | % | EXTERNAL | | | Eosinophils | | | LAB | | + + + + + + | % Basophils | 0.40 | % | EXTERNAL | | | | | | LAB | | + + + + + + | Absolute | 6.51 | 1.90 - 7.40 | EXTERNAL | | | Segmented | | K/uL | LAB | | | Neutrophils | | | | | + + + + + + | Absolute | 1.86 | 1.00 - 3.90 | EXTERNAL | | | Lymphocytes | | K/uL | LAB | | + + + + + + | Absolute | 0.66 | 0.00 - 0.80 | EXTERNAL | | | Monocytes | | K/uL | LAB | | + + + + + + | Absolute | 0.01 | 0.00 - 0.50 | EXTERNAL | | | Eosinophils | | K/uL | LAB | | + + + + + + | Absolute | 0.04Comment: Testing | 0.00 - 0.10 | EXTERNAL | | | Basophils | performed at [facility], [address] | K[address] | LAB | | | | [address], | | | | | | [place] [address] | | | | + + + + + + + + | Specimen | + + | Blood specimen | | (specimen) | + + + +---------+ + + | Performing | Address | City/State/Zipcode | Phone Number | | Organization | | | | + +---------+ + + | EXTERNAL LAB | | | | + +---------+ + + External Lab: CBC (08/01/2017 4:03 AM PST) + + + + + + | Component | Value | Ref Range | Performed | Pathologist | | | | | At | Signature | + + + + + + | WBC | 10.54 | 3.80 - 11.00 | EXTERNAL | | | | | K/uL | LAB | | + + + + + + | Non- | 4.34 | 3.70 - 5.10 | EXTERNAL | | | Red Blood | | M/uL | LAB | | | Cells | | | | | | Counted | | | | | + + + + + + | Hemoglobin | 13.6 | 11.3 - 15.5 | EXTERNAL | | | | | g/dL | LAB | | + + + + + + | Hematocrit, | 38.9 | 34.0 - 46.0 % | EXTERNAL | | | POC | | | LAB | | + + + + + + | MCV | 89.6 | 80.0 - 100.0 fl | EXTERNAL | | | | | | LAB | | + + + + + + | MCH | 31.3 | 27.0 - 34.0 pg | EXTERNAL | | | | | | LAB | | + + + + + + | MCHC | 34.9 | 32.0 - 35.5 | EXTERNAL | | | | | g/dL | LAB | | + + + + + + | RDW-CV | 48.1 | 37 - 53 fl | EXTERNAL | | | | | | LAB | | + + + + + + | Platelet | 199 | 150 - 400 K/uL | EXTERNAL | | | Count | | | LAB | | | Plasma | | | | | + + + + + + | MPV | 10.1 | fl | EXTERNAL | | | | | | LAB | | + + + + + + | Differentia | AUTOMATED | | EXTERNAL | | | l Type | | | LAB | | + + + + + + | % Segmented | 76.43 | % | EXTERNAL | | | | | | LAB | | | Neutrophils | | | | | + + + + + + | % | 15.09 | % | EXTERNAL | | | Lymphocytes | | | LAB | | + + + + + + | % Monocytes | 8.23 | % | EXTERNAL | | | | | | LAB | | + + + + + + | % | 0.10 | % | EXTERNAL | | | Eosinophils | | | LAB | | + + + + + + | % Basophils | 0.15 | % | EXTERNAL | | | | | | LAB | | + + + + + + | Absolute | 8.06 (H) | 1.90 - 7.40 | EXTERNAL | | | Segmented | | K/uL | LAB | | | Neutrophils | | | | | + + + + + + | Absolute | 1.59 | 1.00 - 3.90 | EXTERNAL | | | Lymphocytes | | K/uL | LAB | | + + + + + + | Absolute | 0.87 (H) | 0.00 - 0.80 | EXTERNAL | | | Monocytes | | K/uL | LAB | | + + + + + + | Absolute | 0.01 | 0.00 - 0.50 | EXTERNAL | | | Eosinophils | | K/uL | LAB | | + + + + + + | Absolute | 0.02Comment: Testing | 0.00 - 0.10 | EXTERNAL | | | Basophils | performed at [facility], [address] | [address] | LAB | | | | [address], | | | | | | [place] [address] | | | | + + + + + + + + | Specimen | + + | Blood specimen | | (specimen) | + + + +---------+ + + | Performing | Address | City/State/Zipcode | Phone Number | | Organization | | | | + +---------+ + + | EXTERNAL LAB | | | | + +---------+ + + Magnesium (08/01/2017 4:03 AM PST) + + + + + + | Component | Value | Ref Range | Performed | Pathologist | | | | | At | Signature | + + + + + + | Magnesium | 2.4Comment: Testing | 1.7 - 2.4 mg/dL | EXTERNAL | | | | performed at [facility], [address] | | LAB | | | | [address], | | | | | | [place] [address] | | | | + + + + + + + + | Specimen | + + | Blood specimen | | (specimen) | + + + +---------+ + + | Performing | Address | City/State/Zipcode | Phone Number | | Organization | | | | + +---------+ + + | EXTERNAL LAB | | | | + +---------+ + + Basic Metabolic Panel (08/01/2017 4:03 AM PST) + + + + + + | Component | Value | Ref Range | Performed | Pathologist | | | | | At | Signature | + + + + + + | Na | 142 | 135 - 145 | EXTERNAL | | | | | mmol/L | LAB | | + + + + + + | K | 4.9 | 3.5 - 4.9 | EXTERNAL | | | | | mmol/L | LAB | | + + + + + + | Cl | 110 (H) | 99 - 109 mmol/L | EXTERNAL | | | | | | LAB | | + + + + + + | CO2 | 28 | 23 - 32 mmol/L | EXTERNAL | | | | | | LAB | | + + + + + + | Anion Gap | 9 | 5 - 20 mmol/L | EXTERNAL | | | | | | LAB | | + + + + + + | Glucose, | 109 (H) | 65 - 99 mg/dL | EXTERNAL | | | Fasting | | | LAB | | + + + + + + | BUN | 18 | 8 - 25 mg/dL | EXTERNAL | | | | | | LAB | | + + + + + + | Creatinine | 0.7 | 0.50 - 1.00 | EXTERNAL | | | | | mg/dL | LAB | | + + + + + + | BUN/Creatin | 26 | | EXTERNAL | | | ine Ratio | | | LAB | | + + + + + + | Calcium | 8.6 | 8.5 - 10.5 | EXTERNAL | | | | | mg/dL | LAB | | + + + + + + | Estimated | >60Comment: GFR <60: | mL/min/1.73m2 | EXTERNAL | | | GFR | CHRONIC KIDNEY DISEASE, | | LAB | | | | IF FOUND OVER A 3 MONTH | | | | | | PERIOD.GFR <15: KIDNEY | | | | | | FAILURE.FOR | | | | | | AMERICANS, MULTIPLY THE | | | | | | CALCULATED GFR BY | | | | | | 1.210.Testing performed | | | | | | at [facility], [address] | | | | | | [facility], | | | | | | [place] [address] | | | | + + + + + + + + | Specimen | + + | Blood specimen | | (specimen) | + + + +---------+ + + | Performing | Address | City/State/Zipcode | Phone Number | | Organization | | | | + +---------+ + + | EXTERNAL LAB | | | | + +---------+ + + XR Chest 1 Vw (07/31/2017 6:18 AM PST) + + | Specimen | + + | | + + + + + | Impressions | Performed At | + + + | 1. Persistent subtle infiltrate perhaps with minimal effusion in | | | the right lung base status post right mastectomy with breast | | | prosthesis. Electronically signed by Chon Hansen MD on | | | 07/31/2017 6:51 AM | | + + + + + + | Narrative | Performed At | + + + | HISTORY: Shortness of breath. Cough. COMPARISON: 07/29/17. | | | TECHNIQUE: AP portable film of the chest at 0601 hours FINDINGS: | | | There is persistent infiltrative change in the medial right lung | | | base, perhaps with subtle right effusion. Clips in the right axilla. | | | Right breast prosthesis. Heart size is normal. | | + + + + + | Procedure Note | + + | Gerard, Rad Conversion - 02/26/2019 2:53 PM PDT HISTORY:Shortness of breath. Cough. | | COMPARISON:07/29/17. TECHNIQUE:AP portable film of the chest at 0601 hours | | FINDINGS:There is persistent infiltrative change in the medial right lung base, perhaps | | with subtle right effusion. Clips in the right axilla. Right breast prosthesis. Heart | | size is normal. IMPRESSION: 1. Persistent subtle infiltrate perhaps with minimal | | effusion in the right lung base status post right mastectomy with breast prosthesis. | | | |AP portable film of the chest at 0601 hours | | | |FINDINGS: | |There is persistent infiltrative change in the medial right lung base, perhaps with subtle right effusion. Clips in the right axilla. Right breast prosthesis. Heart size is normal. | | | |IMPRESSION: | |1. Persistent subtle infiltrate perhaps with minimal effusion in the right lung base statu s post right mastectomy with breast prosthesis. | | | | | + + External Lab: CBC (07/31/2017 5:15 AM PST) + + + + + + | Component | Value | Ref Range | Performed | Pathologist | | | | | At | Signature | + + + + + + | WBC | 7.11 | 3.80 - 11.00 | EXTERNAL | | | | | K/uL | LAB | | + + + + + + | Non- | 4.66 | 3.70 - 5.10 | EXTERNAL | | | Red Blood | | M/uL | LAB | | | Cells | | | | | | Counted | | | | | + + + + + + | Hemoglobin | 14.6 | 11.3 - 15.5 | EXTERNAL | | | | | g/dL | LAB | | + + + + + + | Hematocrit, | 41.9 | 34.0 - 46.0 % | EXTERNAL | | | POC | | | LAB | | + + + + + + | MCV | 89.9 | 80.0 - 100.0 fl | EXTERNAL | | | | | | LAB | | + + + + + + | MCH | 31.3 | 27.0 - 34.0 pg | EXTERNAL | | | | | | LAB | | + + + + + + | MCHC | 34.8 | 32.0 - 35.5 | EXTERNAL | | | | | g/dL | LAB | | + + + + + + | RDW-CV | 47.7 | 37 - 53 fl | EXTERNAL | | | | | | LAB | | + + + + + + | Platelet | 177 | 150 - 400 K/uL | EXTERNAL | | | Count | | | LAB | | | Plasma | | | | | + + + + + + | MPV | 10.4 | fl | EXTERNAL | | | | | | LAB | | + + + + + + | Differentia | AUTOMATED | | EXTERNAL | | | l Type | | | LAB | | + + + + + + | % Segmented | 77.08 | % | EXTERNAL | | | | | | LAB | | | Neutrophils | | | | | + + + + + + | % | 12.32 | % | EXTERNAL | | | Lymphocytes | | | LAB | | + + + + + + | % Monocytes | 10.49 | % | EXTERNAL | | | | | | LAB | | + + + + + + | % | 0.05 | % | EXTERNAL | | | Eosinophils | | | LAB | | + + + + + + | % Basophils | 0.06 | % | EXTERNAL | | | | | | LAB | | + + + + + + | Absolute | 5.48 | 1.90 - 7.40 | EXTERNAL | | | Segmented | | K/uL | LAB | | | Neutrophils | | | | | + + + + + + | Absolute | 0.88 (L) | 1.00 - 3.90 | EXTERNAL | | | Lymphocytes | | K/uL | LAB | | + + + + + + | Absolute | 0.75 | 0.00 - 0.80 | EXTERNAL | | | Monocytes | | K/uL | LAB | | + + + + + + | Absolute | 0.00 | 0.00 - 0.50 | EXTERNAL | | | Eosinophils | | K/uL | LAB | | + + + + + + | Absolute | 0.01Comment: Testing | 0.00 - 0.10 | EXTERNAL | | | Basophils | performed at [facility], [address] | [address] | LAB | | | | [facility], | | | | | | [place] [address] | | | | + + + + + + + + | Specimen | + + | Blood specimen | | (specimen) | + + + +---------+ + + | Performing | Address | City/State/Zipcode | Phone Number | | Organization | | | | + +---------+ + + | EXTERNAL LAB | | | | + +---------+ + + Thyroid Panel with TSH (07/30/2017 12:17 PM PST) + + + + + + | Component | Value | Ref Range | Performed | Pathologist | | | | | At | Signature | + + + + + + | T3 Uptake | 41.7 (H) | 30.0 - 39.0 % | EXTERNAL | | | | | | LAB | | + + + + + + | T4, Total | 6.4 | 4.7 - 11.3 | EXTERNAL | | | | | ug/dL | LAB | | + + + + + + | Free | 2.7 | 1.1 - 4.6 | EXTERNAL | | | Thyroxine | | | LAB | | | Index | | | | | + + + + + + | TSH | 0.852Comment: Testing | 0.450 - 5.100 | EXTERNAL | | | | performed at [facility], [address] | uIU/mL | LAB | | | | [facility], | | | | | | [place] [address] | | | | + + + + + + + + | Specimen | + + | | + + + +---------+ + + | Performing | Address | City/State/Zipcode | Phone Number | | Organization | | | | + +---------+ + + | EXTERNAL LAB | | | | + +---------+ + + Troponin I (07/30/2017 12:13 PM PST) + + + + + + | Component | Value | Ref Range | Performed | Pathologist | | | | | At | Signature | + + + + + + | Troponin I, | 0.023Comment: 0.00 to | 0.00 - 0.10 | EXTERNAL | | | Qual | 0.10 CONSISTENT WITH | ng/mL | LAB | | | | NORMAL POPULATION0.11 to | | | | | | 0.60 CONSISTENT WITH | | | | | | INCREASED RISK FOR | | | | | | ADVERSE OUTCOMES> 0.60 | | | | | | CONSISTENT | | | | | | WITH WHO CRITERIA FOR | | | | | | ACUTE [place] Testing | | | | | | performed at [facility] | | | | | [address];[place], [place] | | | | | | [address] | | | | + + + + + + + + | Specimen | + + | Blood specimen | | (specimen) | + + + +---------+ + + | Performing | Address | City/State/Zipcode | Phone Number | | Organization | | | | + +---------+ + + | EXTERNAL LAB | | | | + +---------+ + + HISTORICAL MICROBIOLOGY RESULT (07/30/2017 11:52 AM PST) + + | Specimen | + + | | + + + + + | Narrative | Performed At | + + + | ADENOVIRUS Not Detected | EXTERNAL LAB | | CORONAVIRUS 229E Not Detected CORONAVIRUS | | | HKU1 Not Detected CORONAVIRUS NL63 | | | Not Detected CORONAVIRUS OC43 | | | Not Detected HUMAN METAPNEUMOVIRUS Not | | | Detected HUMAN RHINO/ENTERO Not Detected | | | INFLUENZA A Not Detected INFLUENZA | | | B Not Detected PARAINFLUENZA 1 | | | Not Detected PARAINFLUENZA 2 | | | Not Detected PARAINFLUENZA 3 | | | Not Detected PARAINFLUENZA 4 Not | | | Detected RESP SYNCYTIAL VIRUS DETECTED | | | Abnormal BORDETELLA PERTUSSIS Not Detected | | | CHLAMYDIAE PNEUMONIAE Not Detected MYCOPLASMA | | | PNEUMONIAE Not Detected RESP PANEL INTERP | | | Testing performed by Molecular Methodology | | | Testing performed at [facility], [address] [facility] [place] | | | [address] | | + + + + +---------+ + + | Performing | Address | City/State/Zipcode | Phone Number | | Organization | | | | + +---------+ + + | EXTERNAL LAB | | | | + +---------+ + + Troponin I (07/30/2017 5:58 AM PST) + + + + + + | Component | Value | Ref Range | Performed | Pathologist | | | | | At | Signature | + + + + + + | Troponin I, | 0.025Comment: 0.00 to | 0.00 - 0.10 | EXTERNAL | | | Qual | 0.10 CONSISTENT WITH | ng/mL | LAB | | | | NORMAL POPULATION0.11 to | | | | | | 0.60 CONSISTENT WITH | | | | | | INCREASED RISK FOR | | | | | | ADVERSE OUTCOMES> 0.60 | | | | | | CONSISTENT | | | | | | WITH WHO CRITERIA FOR | | | | | | ACUTE [place] Testing | | | | | | performed at [facility] | | | | | | [address];[place], [place] | | | | | | [address] | | | | + + + + + + + + | Specimen | + + | Blood specimen | | (specimen) | + + + +---------+ + + | Performing | Address | City/State/Zipcode | Phone Number | | Organization | | | | + +---------+ + + | EXTERNAL LAB | | | | + +---------+ + + External Lab: CBC (07/30/2017 5:57 AM PST) + + + + + + | Component | Value | Ref Range | Performed | Pathologist | | | | | At | Signature | + + + + + + | WBC | 7.64 | 3.80 - 11.00 | EXTERNAL | | | | | K/uL | LAB | | + + + + + + | Non- | 4.57 | 3.70 - 5.10 | EXTERNAL | | | Red Blood | | M/uL | LAB | | | Cells | | | | | | Counted | | | | | + + + + + + | Hemoglobin | 14.3 | 11.3 - 15.5 | EXTERNAL | | | | | g/dL | LAB | | + + + + + + | Hematocrit, | 41.4 | 34.0 - 46.0 % | EXTERNAL | | | POC | | | LAB | | + + + + + + | MCV | 90.5 | 80.0 - 100.0 fl | EXTERNAL | | | | | | LAB | | + + + + + + | MCH | 31.2 | 27.0 - 34.0 pg | EXTERNAL | | | | | | LAB | | + + + + + + | MCHC | 34.4 | 32.0 - 35.5 | EXTERNAL | | | | | g/dL | LAB | | + + + + + + | RDW-CV | 48.6 | 37 - 53 fl | EXTERNAL | | | | | | LAB | | + + + + + + | Platelet | 141 (L) | 150 - 400 K/uL | EXTERNAL | | | Count | | | LAB | | | Plasma | | | | | + + + + + + | MPV | 10.1 | fl | EXTERNAL | | | | | | LAB | | + + + + + + | Differentia | AUTOMATED | | EXTERNAL | | | l Type | | | LAB | | + + + + + + | % Segmented | 67.65 | % | EXTERNAL | | | | | | LAB | | | Neutrophils | | | | | + + + + + + | % | 20.22 | % | EXTERNAL | | | Lymphocytes | | | LAB | | + + + + + + | % Monocytes | 11.11 | % | EXTERNAL | | | | | | LAB | | + + + + + + | % | 0.54 | % | EXTERNAL | | | Eosinophils | | | LAB | | + + + + + + | % Basophils | 0.48 | % | EXTERNAL | | | | | | LAB | | + + + + + + | Absolute | 5.17 | 1.90 - 7.40 | EXTERNAL | | | Segmented | | K/uL | LAB | | | Neutrophils | | | | | + + + + + + | Absolute | 1.54 | 1.00 - 3.90 | EXTERNAL | | | Lymphocytes | | K/uL | LAB | | + + + + + + | Absolute | 0.85 (H) | 0.00 - 0.80 | EXTERNAL | | | Monocytes | | K/uL | LAB | | + + + + + + | Absolute | 0.04 | 0.00 - 0.50 | EXTERNAL | | | Eosinophils | | K/uL | LAB | | + + + + + + | Absolute | 0.04Comment: Testing | 0.00 - 0.10 | EXTERNAL | | | Basophils | performed at [facility], [address] | K/uL | LAB | | | | [address], | | | | | | [place] [address] | | | | + + + + + + + + | Specimen | + + | Blood specimen | | (specimen) | + + + +---------+ + + | Performing | Address | City/State/Zipcode | Phone Number | | Organization | | | | + +---------+ + + | EXTERNAL LAB | | | | + +---------+ + + Phosphorus (07/30/2017 5:57 AM PST) + + + + + + | Component | Value | Ref Range | Performed | Pathologist | | | | | At | Signature | + + + + + + | PHOSPHORUS | 2.3Comment: Testing | 2.3 - 4.8 mg/dL | EXTERNAL | | | | performed at [facility], [address] | | LAB | | | | [address], | | | | | | [place] [address] | | | | + + + + + + + + | Specimen | + + | Blood specimen | | (specimen) | + + + +---------+ + + | Performing | Address | City/State/Zipcode | Phone Number | | Organization | | | | + +---------+ + + | EXTERNAL LAB | | | | + +---------+ + + Magnesium (07/30/2017 5:57 AM PST) + + + + + + | Component | Value | Ref Range | Performed | Pathologist | | | | | At | Signature | + + + + + + | Magnesium | 1.7Comment: Testing | 1.7 - 2.4 mg/dL | EXTERNAL | | | | performed at [facility], [address] | | LAB | | | | [address], | | | | | | [place] [address] | | | | + + + + + + + + | Specimen | + + | Blood specimen | | (specimen) | + + + +---------+ + + | Performing | Address | City/State/Zipcode | Phone Number | | Organization | | | | + +---------+ + + | EXTERNAL LAB | | | | + +---------+ + + Comprehensive Metabolic Panel (07/30/2017 5:57 AM PST) + + + + + + | Component | Value | Ref Range | Performed | Pathologist | | | | | At | Signature | + + + + + + | Na | 134 (L) | 135 - 145 | EXTERNAL | | | | | mmol/L | LAB | | + + + + + + | K | 3.7 | 3.5 - 4.9 | EXTERNAL | | | | | mmol/L | LAB | | + + + + + + | Cl | 102 | 99 - 109 mmol/L | EXTERNAL | | | | | | LAB | | + + + + + + | CO2 | 22 (L) | 23 - 32 mmol/L | EXTERNAL | | | | | | LAB | | + + + + + + | Anion Gap | 14 | 5 - 20 mmol/L | EXTERNAL | | | | | | LAB | | + + + + + + | Glucose, | 97 | 65 - 99 mg/dL | EXTERNAL | | | Fasting | | | LAB | | + + + + + + | BUN | 10 | 8 - 25 mg/dL | EXTERNAL | | | | | | LAB | | + + + + + + | Creatinine | 0.7 | 0.50 - 1.00 | EXTERNAL | | | | | mg/dL | LAB | | + + + + + + | BUN/Creatin | 14 | | EXTERNAL | | | ine Ratio | | | LAB | | + + + + + + | Calcium | 8.7 | 8.5 - 10.5 | EXTERNAL | | | | | mg/dL | LAB | | + + + + + + | Protein, | 5.8 (L) | 6.3 - 8.2 g/dL | EXTERNAL | | | Total | | | LAB | | + + + + + + | Albumin | 2.6 (L) | 3.3 - 4.8 g/dL | EXTERNAL | | | | | | LAB | | + + + + + + | Globulin | 3.2 | 1.3 - 4.9 g/dL | EXTERNAL | | | | | | LAB | | + + + + + + | A/G Ratio | 0.8 (L) | 1.0 - 2.4 | EXTERNAL | | | | | | LAB | | + + + + + + | Bilirubin | 1.3 | 0.1 - 1.5 mg/dL | EXTERNAL | | | Total | | | LAB | | + + + + + + | ALP, | 71 | 35 - 115 U/L | EXTERNAL | | | External | | | LAB | | + + + + + + | AST | 26 | 10 - 45 U/L | EXTERNAL | | | | | | LAB | | + + + + + + | ALT | 39 | 10 - 65 U/L | EXTERNAL | | | | | | LAB | | + + + + + + | Estimated | >60Comment: GFR <60: | mL/min/1.73m2 | EXTERNAL | | | GFR | CHRONIC KIDNEY DISEASE, | | LAB | | | | IF FOUND OVER A 3 MONTH | | | | | | PERIOD.GFR <15: KIDNEY | | | | | | FAILURE.FOR | | | | | | AMERICANS, MULTIPLY THE | | | | | | CALCULATED GFR BY | | | | | | 1.210.Testing performed | | | | | | at [facility], [address] | | | | | | [address], | | | | | | [place] [address] | | | | + + + + + + + + | Specimen | + + | Blood specimen | | (specimen) | + + + +---------+ + + | Performing | Address | City/State/Zipcode | Phone Number | | Organization | | | | + +---------+ + + | EXTERNAL LAB | | | | + +---------+ + + Phosphorus (07/29/2017 11:26 PM PST) + + + + + + | Component | Value | Ref Range | Performed | Pathologist | | | | | At | Signature | + + + + + + | PHOSPHORUS | 2.2 (L)Comment: Testing | 2.3 - 4.8 mg/dL | EXTERNAL | | | | performed at [facility] [place] | | LAB | | | | [facility];[place], [place] | | | | | | [address] | | | | + + + + + + + + | Specimen | + + | Blood specimen | | (specimen) | + + + +---------+ + + | Performing | Address | City/State/Zipcode | Phone Number | | Organization | | | | + +---------+ + + | EXTERNAL LAB | | | | + +---------+ + + Magnesium (07/29/2017 11:26 PM PST) + + + + + + | Component | Value | Ref Range | Performed | Pathologist | | | | | At | Signature | + + + + + + | Magnesium | 1.6 (L)Comment: Testing | 1.7 - 2.4 mg/dL | EXTERNAL | | | | performed at [facility] | LAB | | | [address];[place], [place] | | | | | | [address] | | | | + + + + + + + + | Specimen | + + | Blood specimen | | (specimen) | + + + +---------+ + + | Performing | Address | City/State/Zipcode | Phone Number | | Organization | | | | + +---------+ + + | EXTERNAL LAB | | | | + +---------+ + + HISTORICAL LAB PANEL RESULT (07/29/2017 7:03 PM PST) + + + + + + | Component | Value | Ref Range | Performed | Pathologist | | | | | At | Signature | + + + + + + | WBC | 7.16 | 3.80 - 11.00 | EXTERNAL | | | | | K/uL | LAB | | + + + + + + | Non- | 4.67 | 3.70 - 5.10 | EXTERNAL | | | Red Blood | | M/uL | LAB | | | Cells | | | | | | Counted | | | | | + + + + + + | Hemoglobin | 14.4 | 11.3 - 15.5 | EXTERNAL | | | | | g/dL | LAB | | + + + + + + | Hematocrit, | 42.9 | 34.0 - 46.0 % | EXTERNAL | | | POC | | | LAB | | + + + + + + | MCV | 91.9 | 80.0 - 100.0 fl | EXTERNAL | | | | | | LAB | | + + + + + + | MCH | 30.9 | 27.0 - 34.0 pg | EXTERNAL | | | | | | LAB | | + + + + + + | MCHC | 33.6 | 32.0 - 35.5 | EXTERNAL | | | | | g/dL | LAB | | + + + + + + | RDW-CV | 49.0 | 37 - 53 fl | EXTERNAL | | | | | | LAB | | + + + + + + | Platelet | 150 | 150 - 400 K/uL | EXTERNAL | | | Count | | | LAB | | | Plasma | | | | | + + + + + + | MPV | 10.3 | fl | EXTERNAL | | | | | | LAB | | + + + + + + | Differentia | AUTOMATED | | EXTERNAL | | | l Type | | | LAB | | + + + + + + | % Segmented | 63.29 | % | EXTERNAL | | | | | | LAB | | | Neutrophils | | | | | + + + + + + | % | 23.16 | % | EXTERNAL | | | Lymphocytes | | | LAB | | + + + + + + | % Monocytes | 11.26 | % | EXTERNAL | | | | | | LAB | | + + + + + + | % | 1.24 | % | EXTERNAL | | | Eosinophils | | | LAB | | + + + + + + | % Basophils | 1.05 | % | EXTERNAL | | | | | | LAB | | + + + + + + | Absolute | 4.53 | 1.90 - 7.40 | EXTERNAL | | | Segmented | | K/uL | LAB | | | Neutrophils | | | | | + + + + + + | Absolute | 1.66 | 1.00 - 3.90 | EXTERNAL | | | Lymphocytes | | K/uL | LAB | | + + + + + + | Absolute | 0.81 (H) | 0.00 - 0.80 | EXTERNAL | | | Monocytes | | K/uL | LAB | | + + + + + + | Absolute | 0.09 | 0.00 - 0.50 | EXTERNAL | | | Eosinophils | | K/uL | LAB | | + + + + + + | Absolute | 0.08 | 0.00 - 0.10 | EXTERNAL | | | Basophils | | K/uL | LAB | | + + + + + + | Na | 134 (L) | 135 - 145 | EXTERNAL | | | | | mmol/L | LAB | | + + + + + + | K | 4.2Comment: MODERATE | 3.5 - 4.9 | EXTERNAL | | | | HEMOLYSIS | mmol/L | LAB | | + + + + + + | Cl | 101 | 99 - 109 mmol/L | EXTERNAL | | | | | | LAB | | + + + + + + | CO2 | 23 | 23 - 32 mmol/L | EXTERNAL | | | | | | LAB | | + + + + + + | Anion Gap | 14 | 5 - 20 mmol/L | EXTERNAL | | | | | | LAB | | + + + + + + | Glucose, | 114 (H) | 65 - 99 mg/dL | EXTERNAL | | | Fasting | | | LAB | | + + + + + + | BUN | 11 | 8 - 25 mg/dL | EXTERNAL | | | | | | LAB | | + + + + + + | Creatinine | 1.0 | 0.50 - 1.00 | EXTERNAL | | | | | mg/dL | LAB | | + + + + + + | BUN/Creatin | 11 | | EXTERNAL | | | ine Ratio | | | LAB | | + + + + + + | Calcium | 8.2 (L) | 8.5 - 10.5 | EXTERNAL | | | | | mg/dL | LAB | | + + + + + + | Protein, | 6.5 | 6.3 - 8.2 g/dL | EXTERNAL | | | Total | | | LAB | | + + + + + + | Albumin | 2.8 (L) | 3.3 - 4.8 g/dL | EXTERNAL | | | | | | LAB | | + + + + + + | Globulin | 3.7 | 1.3 - 4.9 g/dL | EXTERNAL | | | | | | LAB | | + + + + + + | A/G Ratio | 0.7 (L) | 1.0 - 2.4 | EXTERNAL | | | | | | LAB | | + + + + + + | Bilirubin | 1.2 | 0.1 - 1.5 mg/dL | EXTERNAL | | | Total | | | LAB | | + + + + + + | ALP, | 76 | 35 - 115 U/L | EXTERNAL | | | External | | | LAB | | + + + + + + | AST | 45Comment: MODERATE | 10 - 45 U/L | EXTERNAL | | | | HEMOLYSIS | | LAB | | + + + + + + | ALT | 42 | 10 - 65 U/L | EXTERNAL | | | | | | LAB | | + + + + + + | Estimated | 58 (L)Comment: GFR <60: | mL/min/1.73m2 | EXTERNAL | | | GFR | CHRONIC KIDNEY DISEASE, | | LAB | | | | IF FOUND OVER A 3 MONTH | | | | | | PERIOD.GFR <15: KIDNEY | | | | | | FAILURE.FOR | | | | | | AMERICANS, MULTIPLY THE | | | | | | CALCULATED GFR BY 1.210. | | | | | | | | | | + + + + + + | CK, Total | 81Comment: MODERATE | 30 - 240 U/L | EXTERNAL | | | | HEMOLYSIS | | LAB | | + + + + + + | INR | 1.7Comment: REFERENCE | | EXTERNAL | | | | RANGE:0.9 - 1.2 | | LAB | | | | NON-ANTICOAGULATED2.0 | | | | | | - 3.0 ALL OTHER | | | | | | THERAPEUTIC | | | | | | INDICATIONS2.5 - 3.5 | | | | | | MECHANICAL HEART VALVES, | | | | | | RECURRENT OR SYSTEMIC | | | | | | EMBOLISM | | | | + + + + + + | aPTT, | 29 | 23 - 32 seconds | EXTERNAL | | | Patient | | | LAB | | + + + + + + | CK-MB | <1.0 | 0.5 - 3.6 ng/mL | EXTERNAL | | | | | | LAB | | + + + + + + | CK-MB Index | UNABLE TO | | EXTERNAL | | | | CALCULATEComment: | | LAB | | | | Testing performed at | | | | | | [facility];[address] [place] [address] | | | | | | Blvd;[place] [address] | | | | + + + + + + + + | Specimen | + + | | + + + +---------+ + + | Performing | Address | City/State/Zipcode | Phone Number | | Organization | | | | + +---------+ + + | EXTERNAL LAB | | | | + +---------+ + + ECG 12 lead (07/29/2017 6:50 PM PST) + + + + + + | Component | Value | Ref Range | Performed | Pathologist | | | | | At | Signature | + + + + + + | DIAGNOSIS: | Atrial flutter with | | EXTERNAL | | | | variable A-V | | LAB | | | | blockRightward axisST & | | | | | | T wave abnormality, | | | | | | consider inferior | | | | | | ischemiaST & T wave | | | | | | abnormality, consider | | | | | | anterior | | | | | | ischemiaAbnormal ECGNo | | | | | | previous ECGs | | | | | | availableThis ECG | | | | | | contains Unconfirmed | | | | | | Interpretation | | | | | | Statements. See ED | | | | | | Record for Physician | | | | | | Interpretation. | | | | | | Confirmed by MUSE READ | | | | | | ONLY, -COMPUTER ([id number]), | | | | | | web content editor Dafne Contreras | | | | | | ([id number]) on 07/30/2017 | | | | | | 4:58:42 AM | | | | + + + + + + + + | Specimen | + + | | + + + + + | Narrative | Performed At | + + + | Historically converted procedure from [facility] Epic environment | EXTERNAL LAB | + + + + +---------+ + + | Performing | Address | City/State/Zipcode | Phone Number | | Organization | | | | + +---------+ + + | EXTERNAL LAB | | | | + +---------+ + + XR Chest 1 Vw (07/29/2017 4:24 PM PST) + + | Specimen | + + | | + + + + + | Narrative | Performed At | + + + | This is a non-reportable procedure without a radiologist report and | | | is used for image storage only | | + + + + + | Procedure Note | + + | Marty Gee - 02/26/2019 2:53 PM PDT This is a non-reportable procedure | | without a radiologist report and isused for image storage only | + + documented in this encounter Visit Diagnoses + + | Diagnosis | + + | Diagnosis unknown Other unknown and unspecified cause of morbidity or mortality | + + | Atrial flutter with rapid ventricular response (HCC) Atrial flutter | + + | Chronic cough Cough | + + | Congestive heart failure, unspecified congestive heart failure chronicity, unspecified | | congestive heart failure type | + + | Atypical atrial flutter (HCC) Atrial flutter | + + | Typical atrial flutter (HCC) Atrial flutter | + + | RSV infection Respiratory syncytial virus (RSV) | + + documented in this encounter
--- OUTSIDE RECORDS SUMMARY | ~2020-05-04 | XMS | Encounter Summary ---
Demographics + + + | Address | [address] | | | [place] [address] | + + + | Home Phone [...] + | Gene Sahil | ECON | [address] | | | | | [place], | | | | | [place] [address] | | + + + + + Care Team Providers + +------+ + | Care Agriculture Specialist Name | Role | Phone | + +------+ + PCP | Unavailable | + +------+ + Encounter Details +--------+ + + + + | Date | Type | Department | Care Team | Description | +--------+ + + + + | 12/16/ | Letter[facility] | [facility] | Letter, Card Cath | Letters | | 2004 | scribed | CATHETERIZATION | Lab | | +--------+ + + + + [...] as of this encounter Progress Notes Interface, Concession Attendant In - 02/12/2005 5:53 AM PDT [id number] 12/16/2004 [id number] SAHIL Holman [place] [phone] , [employer], Department of Medicine Division of Cardiology Cardiac Catheterization Laboratory December 16, 2004 Jesu Ribera M.D. [address] [place] [address] RE: ADRIANA BAXTER : [address] Ribera: We had the pleasure of taking care of Ms. Baxter. The details of our procedure are delineated in the enclosed note. Hopefully the patient will be served well with her ablation. The patient will be following up with us within one month to determine whether she needs to continue her atenolol. Thank you very much for allowing us to participate in the care of this patient. Please feel free to give us a call with any questions. Sincerely, Miguel Lipscomb M.D. Fellow, Clinical Cardiac Electrophysiology Gary Fuentes M.D. Professor, Medicine Division of Cardiology KRYSTAL/randy Job No. [id number] documented i n this encounter Plan of Treatment Not on filedocumented as of this encounter Visit Diagnoses Not on filedocumented in this encounter"
--- OUTSIDE RECORDS SUMMARY | ~2020-05-04 | XMS | Encounter Summary ---
Demographics + + + | Address | [address] | | | [place] [address] | + + + | Home Phone [...] + | Gene Gee | ECON | [address] | | | | | [place], | | | | | [place] [address] | | + + + + + Care Team Providers + +------+ + | Care Batch Weigher Name | Role | Phone | + +------+ + | Antony Ribera MD | PCP | | + +------+ + Encounter Details +--------+ + + + + | Date | Type | Department | Care Team | Description | +--------+ + + + + | 07/19/ | Abstract | Cardiology | Elijah Whalen, | | | 2018 | | Arrhythmia at [facility] | [address] | | | | | [address] | [address] | | | | | [facility] | [place], [place] | | | | | and Healing, | [address] | | | | | [facility] | [phone] | | | | | Floor [place], [place] | | | | | | [address] | | | | | | [phone] | | | +--------+ + + + [...]
--- OUTSIDE RECORDS SUMMARY | ~2020-05-04 | XMS | Encounter Summary ---
Demographics + + + | Address | [address] | | | [place] [address] | + + + | Home Phone [...] + | Gene Gee | ECON | [address] | | | | | [place], | | | | | [place] [address] | | + + + + + Care Team Providers + +------+ + | Care Director Report Name | Role | Phone | + +------+ + | Antony Ribera MD | PCP | | + +------+ + Encounter Details +--------+ + + + + | Date | Type | Department | Care Team | Description | +--------+ + + + + | 01/06/ | MyChart | John Rudolph | Other, Faculty | Appointment | | 2010 | Encounter | [facility] | [phone] | Reschedule | | | | [facility] | | | | | | [address] | | | | | | [address] | | | | | | [facility] | | | | | | [address] [place], | | | | | | [place] [address] | | | | | | [phone] | | | +--------+ + + + [...]
--- OUTSIDE RECORDS SUMMARY | ~2020-05-04 | XMS | Encounter Summary ---
Demographics + + + | Address | [address] | | | [place] [address] | + + + | Home Phone [...] + | Gene Gee | ECON | [address] | | | | | [place], | | | | | [place] [address] | | + + + + + Care Team Providers + +------+ + | Care Jet Engine Mechanic Name | Role | Phone | + +------+ + | Antony Ribera MD | PCP | | + +------+ + Reason for Visit + + + | Reason | Comments | + + + | Postoperative | | | Questions | | + + + Encounter Details +--------+ + + + + | Date | Type | Department | Care Team | Description | +--------+ + + + + | 04/18/ | Documentati | [facility] | [facility], | Postoperative | | 2007 | on | at [facility] [address] | MD [address] | Questions | | | | [address] | [place], [place] | | | | | [id number] | [address] | | | | | [facility], | [phone] | | | | | [place] [address] | | | | | | [phone] | | | +--------+ + + + [...] Notes Telephone Encounter - Claribel Garza - 04/18/2007 11:39 AM PDTPatient and stopped by in clinic to inquire about having a port placed along with 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 Patient instructed to speak with Dr. Heart tomorrow prior to operation to disc uss port placement. Procedure added on to [place] schedule per Tamica if this is the agreed upon procedure. documented in t his encounter Plan of Treatment Not on filedocumented as of this encounter Visit Diagnoses Not on filedocumented in this encounter"
--- OUTSIDE RECORDS SUMMARY | ~2020-05-04 | XMS | Encounter Summary ---
Demographics + + + | Address | [address] | | | [place] [address] | + + + | Home Phone [...] + | Gene Gee | ECON | [address] | | | | | [place], | | | | | [place] [address] | | + + + + + Care Team Providers + +------+ + | Care Horticultural Services Supervisor Name | Role | Phone | + +------+ + | Antony Ribera MD | PCP | | + +------+ + Encounter Details +--------+ + + + + | Date | Type | Department | Care Team | Description | +--------+ + + + + | 07/27/ | Licensing Manager | Cardiology | Gary Fuentes MD | Atrial tachycardia | | 2014 | | Arrhythmia at [facility] | [address] | 427.89 (Primary Dx) | | | | [address] | [address] [place], | | | | | [place] [facility] | [place] [address] | | | | | and Healing, | [phone] | | | | | [facility] | | | | | | Floor [place], [place] | | | | | | [address] | | | | | | [phone] | | | +--------+ + + + [...] of this encounter Procedure Gisele Cohen - 07/27/2014 8:51 PM PSTAssociated Order(s): 12 LEAD ECGElectronically sign ed by Gisele Strong at 07/27/2014 8:51 PM PSTdocumented in this encounter Plan of Treatment Not on filedocumented as of this encounter Procedures + +--------+ + + + | Procedure Name | Priori | Date/Time | Associated Diagnosis | Comments | | | ty | | | | + +--------+ + + + | 12 LEAD ECG | Routin | 07/27/2014 | Atrial tachycardia | Results for this | | | e | 11:37 AM | 427.89 | procedure are in the | | | | PST | | results section. | + +--------+ + + + documented in this encounter Results 12 LEAD ECG (07/27/2014 11:37 AM PST) + + + + + + | Component | Value | Ref Range | Performed | Pathologist | | | | | At | Signature | + + + + + + | VENTRICULAR | 65 | bpm | [facility] | | | RATE | | | OF | | | | | | CARDIOLOGY | | + + + + + + | ATRIAL RATE | 66 | bpm | [facility] [...] + | P AXIS | 82 | deg | [facility] | | [...] + + + + | QTC-BAZETT | 504 | ms | [facility] | | | | | | OF | | | | | | CARDIOLOGY | | + + + + + + | R AXIS | -36 | deg | [facility] | | | | | | OF | | | | | | CARDIOLOGY | | + + + + + + | T AXIS | 2 | deg | [facility] | | [...] | | | | | | by: MIK CATALAN | | | | | | 07-27-2014 20:26:45 | | | | + + + + + + + + | Specimen | + + | | + + + + + | Narrative | Performed At | + + + | | [facility] | | | CARDIOLOGY | + + + + + | Procedure Note | + + | Gisele Strong - 07/27/2014 8:51 PM PST | + + + + + + + | Performing | Address | City/State/Zipcode | Phone Number | | Organization | | | | + + + + + | [facility] | [address] | [place], [place] | | | CARDIOLOGY | [address] | [address] | | + + + + + documented in this encounter Visit Diagnoses + + | Diagnosis | + + | Atrial tachycardia 427.89 - Primary Other specified cardiac dysrhythmias | + + documented in this encounter"
--- OUTSIDE RECORDS SUMMARY | ~2020-05-04 | XMS | Encounter Summary ---
Demographics + + + | Address | [address] | | | [place] [address] | + + + | Home Phone [...] + | Gene Gee | ECON | [address] | | | | | [place], | | | | | [place] [address] | | + + + + + Care Team Providers + +------+ + | Care Eyeglass Lens Generator Name | Role | Phone | + +------+ + | Alec Hill MD | PCP | | + +------+ + Encounter Details +--------+ + + + + | Date | Type | Department | Care Team | Description | +--------+ + + + + | 04/20/ | Document-Sc | [facility] | Tapan Horowitz MD | | | 2020 | anned | [facility] | [address] | | | | | [facility] | [facility], | | | | | [address] | [place] [address] | | | | | [address] | [phone] | | | | | [facility] | | | | | | Physician's | | | | | | [place], | | | | | | [place] [address] | | | | | | [phone] | | | +--------+ + + + [...]
--- OUTSIDE RECORDS SUMMARY | ~2020-05-04 | XMS | Encounter Summary ---
Demographics + + + | Address | [address] | | | [place] [address] | + + + | Home Phone [...] + | Gene Gee | ECON | [address] | | | | | [place], | | | | | [place] [address] | | + + + + + Care Team Providers + +------+ + | Care Life Scientists Name | Role | Phone | + [...] | | | | | MEDICINE | [address] Phone: | | | | | | [address] | [phone] | | | | | | [facility] | Fax: | | | | | | [address] | [phone] | | | | | | [place], | | | | | | | [place] [address] | | | | | | | Phone: | | | | | | | [phone] | | | | | | | Fax: | | | | | | | [phone] | | +--------+--------+ + + + + Encounter Details +--------+---------+ + + + | Date | Type | Department | Care Team | Description | +--------+---------+ + + + | 04/27/ | Office | Cardiology | Gary Fuentes MD | Atrial tachycardia | | 2010 | Visit | Arrhythmia at [facility] | [address] | 427.89 (Primary Dx) | | | | [address] | [address] [place], | | | | | [facility] | [place] [address] | | | | | and Healing, | [phone] | | | | | Building | | | | | | Floor [place], [place] | | | | | | [address] | | | | | | [phone] | | | +--------+---------+ + + + [...] + + + | Blood Pressure | 122/86 | 04/27/2011 10:34 AM | | | | | PDT | | + + + + + | Pulse | 71 | 04/27/2011 10:34 AM | | | | | PDT | | + + + + + | Temperature | 36.4 C (97.6 F) | 04/27/2011 10:34 AM | | | | | PDT | | + + + + + | Respiratory Rate | 16 | 04/27/2011 10:34 AM | | | | | PDT | | + + + + + | Oxygen Saturation | 98% | 04/27/2011 10:34 AM | | | | | PDT | | + + + + + | Inhaled Oxygen | - | - | | | Concentration | | | | + + + + + | Weight | 65.1 kg (143 lb 8 | 04/27/2011 10:34 AM | | | | oz) | PDT | | + + + + + | Height | 168.3 cm (5' 6.25") | 04/27/2011 10:34 AM | | | | | PDT | | + + + + + | Body Mass Index | 22.99 | 04/27/2011 10:34 AM | | | | | PDT | | + + + + + documented in this encounter Patient Instructions Patient Instructions Gary Fuentes MD - 04/27/2011 10:47 AM PDTYou are doing well. We will ge t an ECG today. If you have racing heart beats take an extra Atenolol. We will see you back in 6 months. documented in this encounter Progress Notes Gary Fuentes MD - 04/27/2011 10:38 AM PDT OUTPATIENT FOLLOW UP ID: Adriana Flynn is a 64 y.o. female with PMH of fibromyalgia, sjogren's dz, multiple SBO's, a nd atrial tachycardia s/p ablation in 12/2004 and 09/2005, initially on morizicine, then switc hed to dofetilide in 12/2007. She presents for followup visit for her atrial tachycardia. Talha garcía has occasional palpitations. She had a prolonged episode of fluttering in February which re solved in about an hour.Her palpitations get worse if she misses an Atenolol dose. She wonde rs if it could have been related to caffeine use ROS: Her GI sx's have been very stable for the past year on Benefiber. Chest pain has resol chalino. Past Medical History Diagnosis Date Sjogrens syndrome [...] Outpatient Medications: anastrozole (ARIMIDEX) 1 mg Oral Tablet Take [...] % Topical Gel Apply to affected area as needed. DOFETILIDE 500 mcg Oral Capsule Take 1 Cap by mouth two times daily. fluticasone (FLONASE) 50 mcg/Actuation Nasal [place], Suspension Instill 2 Sprays into ea ch nostril as needed. Glucosamine 1,000 mg Oral Tablet one daily guar gum (BENEFIBER) Oral Packet Take by mouth once daily. 4 teasp daily MULTIVITAMIN OR one daily potassium chloride [...] Solution Inject into the vein (IV). Yearly (Not in a hospital admission) Allergies Allergen Reactions Sulfa (Sulfonamides) Swelling-Facial Ciprofloxacin Hives and Rash Triamterene-hydrochlorothiazid BREAST LUMPS Celebrex (Celecoxib) Diarrhea and Cough Albuterol Tachycardia Flecainide Acetate Rash Intestinal discomfort Propafenone unknown Crestor (Rosuvastatin Calcium) muscle/Jt Pain Zetia (Ezetimibe) Nausea/Vomiting Kapidex (Dexlansoprazole) Lactose Tape Adherent Rash ROS: Gen:Appears well CV: per hpi, no leg swelling/exertional chest pain or worsening SOB. PULM: no cough GI: per hpi All other review of systems negative Physical Exam: BP 122/86 | Pulse 71 | Temp (Src) 36.4 C (97.6 F) (Oral) | RR 16 | Ht 168.3 cm (5' 6.25 ") | Wt 65.091 kg (143 lb 8 oz) | SpO2 98% | BMI 22.99 kg/(m^2) General Appearance: pleasant, NAD, AAO x 3 HEENT: sclera anicteric, MM moist, conj pink Neck: JVP not elevated @ 30degrees Respiratory: CTA bilaterally Cardiovascular: regular, no murmurs Gastrointestinal: soft, nt, nd, bs + Extremitites: wwp, no edema Data: Lab Results Component Value Date CHOL Combined. 12/29/2008 LDL 130* 12/29/2008 HDL Combined. 12/29/2008 TRI Combined. 12/29/200811/2009: TC-224 LDL-160 HDL-45 TG-95 ECG: NSR; QTC .46 Impression: Adriana Flynn is a 64 y.o. female with PMH of atrial tachycardia s/p 2 ablation attempt wh o presents for followup visit. She is doing well and having minimal symptoms.Would not make changes at this time. 1. Atrial Tachycardia: -continue dofetilide. She will take an extra Atenolol if she has more palpitations . documented in this encount er Plan of [...] view image for the detailed interpretation from [employer] results. | CARDIOLOGY | + + + + + + + + | Performing | Address | City/State/Zipcode | Phone Number | | Organization | | | | + + + + + | [facility] | [address] | [place], [place] | | | CARDIOLOGY | [address] | [address] | | + + + + + documented in this encounter Visit Diagnoses + + | Diagnosis | + + | Atrial tachycardia 427.89 - Primary Other specified cardiac dysrhythmias | + + documented in this encounter
--- OUTSIDE RECORDS SUMMARY | ~2020-05-04 | XMS | Encounter Summary ---
Demographics + + + | Address | [address] | | | [place] [address] | + + + | Home Phone [...] + | Gene Gee | ECON | [address] | | | | | [place], | | | | | [place] [address] | | + + + + + Care Team Providers + +------+ + | Care Plastics Factory Worker Name | Role | Phone | + +------+ + | Alec Hill MD | PCP | | + +------+ + Encounter Details +--------+ + + + + | Date | Type | Department | Care Team | Description | +--------+ + + + + | 06/27/ | Ancillary | [facility] | | | | 2006 | Registratio | Practice [address] | | | | | n | [facility], | | | | | | [place] [address] | | | | | | [phone] | | | +--------+ + + + [...]
--- OUTSIDE RECORDS SUMMARY | ~2020-05-04 | XMS | Encounter Summary ---
Demographics + + + | Address | [address] | | | [place] [address] | + + + | Home Phone [...] + | Gene Gee | ECON | [address] | | | | | [place], | | | | | [place] [address] | | + + + + + Care Team Providers + +------+ + | Care Labor Representative Name | Role | Phone | + +------+ + | Antony Ribera MD | PCP | | + +------+ + Encounter Details +--------+ + + + + | Date | Type | Department | Care Team | Description | +--------+ + + + + | 10/10/ | Hospital | [facility] | | | | 2015 | Encounter | Center at [address] | | | | | | [facility] [address] | | | | | | [place], [address] [place] [address] | | | | | | [place], [place] | | | | | | [address] | | | | | | [phone] | | | +--------+ + + + [...] | | 0 | | | | #[id number] | daily. | | | | | [...] + +--------+ + + + | [facility] | Routin | 10/11/2015 | Breast cancer, | Results for this | | LEFT W/CAD | e | 11:42 AM | right (HCC) | procedure are in the | | | | PDT | | results section. | + +--------+ + + + | ORDERS OTHER | | 10/11/2015 | | Results for this | | | | 12:00 AM | | procedure are in the | | | | PDT | | results section. | + +--------+ + + + documented in this encounter Results [facility]IDE [facility] LEFT W/CAD (10/11/2015 11:42 AM [...] | | | | | [facility] | | | | | | [place]. , | | | | | | 2013, AIDE DIGITAL MAMMO | | | | | | DIAG LEFT w/CAD | | | | | | performed at | | | | | | [facility] | | | | | | [place].There are | | | | | | [...] #: | | | | | | [id number] the site of | | | | [...] at | | | | | | [facility] | | | | | | [place]. ASSESSMENT: | | | | | | [...] | + +---------+ + + ORDERS OTHER (10/11/2015 12:00 AM PDT) + + + | Narrative | Performed At | + + + | | | + + + documented in this encounter Visit Diagnoses + + | Diagnosis | + + | Breast cancer, right (HCC) | + + documented in this encounter"
--- OUTSIDE RECORDS SUMMARY | ~2020-05-04 | XMS | Encounter Summary ---
Demographics + + + | Address | [address] | | | [place] [address] | + + + | Home Phone [...] + | Gene Gee | ECON | [address] | | | | | [place], | | | | | [place] [address] | | + + + + + Care Team Providers + +------+ + | Care Excelsior Picker Name | Role | Phone | + [...] | | | | | [place] | [place], [place] | | | | | | [address] | [address] | | | | | | [place], | Phone: | | | | | | [place] [address] | [phone] | | | | | | Phone: | Fax: | | | | | | [phone] | [phone] | | | | | | Fax: | | | | | | | [phone] | | +--------+--------+ + + + + [...] | | | | Medicine at | [address] [place], | unspecified whether | | | | [facility] | [place] [address] | complicated, | | | | [address] | [phone] | unspecified whether | | | | Loop [facility] | | persistent (Primary | | | | [place], 3rd Floor | | Dx) | | | | [place], [place] | | | | | | [address] | | | | | | [phone] | | | +--------+---------+ + + + [...] Pressure | 131/74 | 05/16/2017 2:59 PM | | | | | PDT | | + + + + + | Pulse | 64 | 05/16/2017 2:59 PM | | | | | PDT | | + + + + + | Temperature | 36.2 C (97.2 F) | 05/16/2017 2:59 PM | | | | | PDT | | + + + + + | Respiratory Rate | 14 | 05/16/2017 2:59 PM | | | | | PDT | | + + + + + | Oxygen Saturation | 97% | 05/16/2017 2:59 PM | | | | | PDT | | + + + + + | Inhaled Oxygen | - | - | | | Concentration | | | | + + + + + | Weight | 72.8 kg (160 lb 6.4 | 05/16/2017 2:59 PM | | | | oz) | PDT | | + + + + + | Height | 166.4 cm (5' 5.51") | 05/16/2017 2:59 PM | | | | | PDT | | + + + + + | Body Mass Index | 26.28 | 05/16/2017 2:59 PM | | | | | PDT | | + + + + + documented in this encounter Patient Instructions Patient Instructions Juana Kilgore MD - 05/16/2017 3:05 PM PDTWhat is my diagnosis/What a m [...] in case I have a question? -Call [phone] We recommend signing up for [employer] our secure online messaging system that will [...] Juana Kilgore MD - 05/16/2017 3:05 PM PDT Chief Complaint / ID: 71 year old woman with asthma Interval History: Ms Baxter is a 70 year-old woman returning to [...] was doing a month ago. Recalls se hernandez abdominal pain on montelukast previously and does [...] (HCC) 07/20 also episode in setting of [place] virus in 05/2012 which was thougth to be AF, but likel y just AT. Bursitis 2006 Plantar fascial fibromatosis 2007 plantar fascial tear Osteopenia 12/30/2007 Breast cancer (HCC) 02/2007 s/p chemo with taxotere/cytoxan Shingles Pulmonary embolus (HCC) 09/2008 Deep vein thrombosis of lower extremity (HCC) Atrial tachycardia (HCC) RA ibarra tach ablated 2004 at [facility]. Repeat EPS showed only [...] as needed (Shortness of breath). lactobac b #2-pev-vvsbpwxlmc 300-250 million cell-mg oral capsule Take by [...] | SpO2 97% | BMI 26.28 kg/(m^2) [place] elderly lady in no distress Mallampati I [...] 65 FEV1/FVC PRE (%REF) % 93 - BLQ35-35% PRE 1.82 L/sec 0.98 0.89 WEQ70-48% PRE (%REF) % 53 43 PEF PRE [...] 13 in 2009 No eosinophilia (last checked 3537-5609) IMPRESSION Ms. Baxter is a 71 year old woman with [...] ally. I spent 38 minutes with Ms Baxter, at least 50% of which was spent counseling her regarding PFTs, asthma, and options for improved asthma control. Juana Kilgore MD [facility] Attending Physician documented in this enco unter Plan of [...] + + + | PULMONARY | Site: [facility] | | [facility] | | | INTERPRETAT | [facility] | | SPECIAL | | | ION | [facility] | | DIAGNOSTICS | | | | Rd,[place], [place], | | - | | | | [address]WT: [id number] | | PULMONARY | | | | Name: LAUREN BAXTER | | FUNCTION | | | | JVisit Date: 10/24/2017 | | | | | | Second ID: | | | | | | [id number]: | | | | | | Marielos [...] + + + + + + | QAG24-63% | 1.26 | 1.76 L/sec | [facility] | | | PRE | | | SPECIAL | | | | | | DIAGNOSTICS | | | | | | - | | | | | | PULMONARY | | | | | | FUNCTION | | + + + + + + | UKY60-93% | 71 | % | [facility] | [...] [facility] | [address] | [place], [place] | | | DIAGNOSTICS - | [address] | [address] | | | PULMONARY FUNCTION | | | | + + + + + documented in this encounter Visit Diagnoses + + | Diagnosis | + + | Asthma, unspecified asthma severity, unspecified whether complicated, unspecified | | whether persistent - Primary | + + documented in this encounter
--- OUTSIDE RECORDS SUMMARY | ~2020-05-04 | XMS | Encounter Summary ---
Demographics + + + | Address | [address] | | | [place] [address] | + + + | Home Phone [...] + | Gene Gee | ECON | [address] | | | | | [place], | | | | | [place] [address] | | + + + + + Care Team Providers + +------+ + | Care Warehouse Delivery Driver Name | Role | Phone | + +------+ + | Antony Ribera MD | PCP | | + +------+ + Encounter Details +--------+ + + + + | Date | Type | Department | Care Team | Description | +--------+ + + + + | 03/10/ | Document-Sc | UNKNOWN DEPARTMENT | Radiologist, | | | 2008 | [facility]bo[facility] | [address] | [facility] | | | | | [address] | | | | | | [place], [place] | | | | | | [address] | | | +--------+ + + + [...]
--- OUTSIDE RECORDS SUMMARY | ~2020-05-04 | XMS | Encounter Summary ---
Demographics + + + | Address | [address] | | | [place] [address] | + + + | Home Phone [...] + | Gene Gee | ECON | [address] | | | | | [place], | | | | | [place] [address] | | + + + + + Care Team Providers + +------+ + | Care Care Consultant Name | Role | Phone | [...] Description | +--------+---------+ + + + | 06/20/ | Office | Surgical Oncology | ZhangvalenciaLuís chavez, | 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 | Visit | - Breast Clinic | [address] | Breast; Neoplasm of | | | | [address] | [place], [place] | Uncertain Behavior | | | | Mailcode: CH7A | [address] | of Other Specified | | | | [facility] | [phone] | Sites; Breast Cancer | | | | and Healing, | | (FORMERLY [facility]) | | | | Building | | | | | | Floor [place], [place] | | | | | | [address] | | | | | | [phone] | | | +--------+---------+ + + + [...] | Blood Pressure | 113/58 | 06/20/2007 11:33 AM | | | | | PST | | + + + + + | Pulse | 71 | 06/20/2007 11:33 AM | | | | | PST | | + + + + + | Temperature | 37.1 C (98.8 F) | 06/20/2007 11:33 AM | | | | | PST [...] + + + + | Weight | 66.9 kg (147 lb 9 | 06/20/2007 11:33 AM | | | | oz) | PST | | + + + + + | Height | - | - | | + + + + + | Body Mass Index | 24.18 | 05/02/2007 2:06 PM | | | | | PDT | | + + + + + documented in this encounter Progress Notes Claribel Shoemaker - 06/20/2007 1:27 PM PST Addended by: CLARIBEL SHOEMAKER RN on: 06/20/2007 1 :27:01 PM Modules accepted: Orders uís Heart - 06/20 1:19 PM PSTCarol is back after release of contractures from her right axilla. They we re considerable, but quite rewarding to release. She had immediate return of mobility of her RUE. She has a TIMOTHY in place, which is not draining anymore. She also found a mole on her ri ght scapular region she'd like me to look at. PE. range of motion of the RUE is 180 of abduction. Axillary wound Is clean and dry. TIMOTHY is in place. Mole on her right scapular region is irregular in shape, dark, and with "[place]" samir rders. Asessment: Successful release of axillary contractures. Shoulder rehabilitation is almost f ull now. Suspicious mole on right scapular region. It should be excised and examined. Plan: TIMOTHY lin D/C'd I excised the mole under local anesthetic and sent it to Derm [facility]. She'll have sutures rem emir in [place]. She can check the pathology with us when she returns for chemotherapy i n 3 weeks. I'll otherwise see her for f/u in 6 months. LUÍS HEART MD parimutuel ticket seller Division of Surgical Oncology MailCode [id number] [place], [place] [address] documented in this encoun ter Plan of Treatment + + +--------+ + + | Name | Type | Priori | Associated Diagnoses | Order Schedule | | | | ty | | | + + +--------+ + + | DERM PATHOLOGY | Lab | Routin | Neoplasm of | Ordered: 06/20/2007 | | | | e | Uncertain Behavior | | | | | | of Other Specified | | | | | | Sites | | + + +--------+ + + | [place] BIOPSY OF SKIN | Procedures | Routin | Neoplasm of | Ordered: 06/20/2007 | | LESION | | e | Uncertain Behavior | | | | | | of Other Specified | | | | | | Sites | | + + +--------+ + + documented as of this encounter Visit Diagnoses + + | Diagnosis | + + | Carcinoma in situ of breast | + + | Neoplasm of uncertain behavior of other specified sites | + + | Breast cancer (HCC) Malignant neoplasm of breast (female), unspecified site | + + documented in this encounter
--- OUTSIDE RECORDS SUMMARY | ~2020-05-04 | XMS | Encounter Summary ---
Demographics + + + | Address | [address] | | | [place] [address] | + + + | Home Phone [...] + | Gene Gee | ECON | [address] | | | | | [place], | | | | | [place] [address] | | + + + + + Care Team Providers + +------+ + | Care Filler Wiper Name | Role | Phone | + +------+ + | Antony Ribera MD | PCP | | + +------+ + Encounter Details +--------+ + + + + | Date | Type | Department | Care Team | Description | +--------+ + + + + | 06/06/ | Procedure | Plastic and | Errol Gold | | | 2012 | | Reconstructive | MD Manda [address] | | | | | Surgery at [facility] [address] | | | | | S [facility] | [address] [place], [place] | | | | | for Health and | [address] | | | | | Healing, Building [address], | | | | | | 5th Floor | | | | | | [place], [place] | | | | | | [address] | | | | | | [phone] | | | +--------+ + + + [...] of this encounter Progress Notes Alla Buchanan, Hemangini J - 06/06/2013 12:52 PM PSTProcedure Note: Micropigmentation of areola Procedure Date: 06/06/2013 Attending Physician: Mark Gold MD Resident Physician: .None Pre-procedure Diagnosis: Acquired absence of right nipple-areola complex History of breast cancer Post-procedure Diagnosis: Same Procedure Performed: Micropigmentation of right areola Indication: 67 y.o. 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 She bhakta s undergone right breast reconstruction with implant and right nipple reconstruction. At thi s time, we are ready to proceed with micropigmentation of the areola. The risks, benefits and alternatives of the [...] appropriately. Our attention was turned to the right nipple. A diameter of 40 mm was drawn around the previously reconstructed nipp le. The area was sterilized using alcohol. Using a tattoo machine, dark flesh colored pigmen t was introduced into this skin. A darker pigment was used to shadow under the nipple and a financial project manager color was used to highlight the nipple. There was pinpoint bleeding at the end of th e session. The areola was wiped clean with alcohol. Pressure was applied to the surgical si federica to control minimal bleeding. Ointment was applied over the tattooed area. Sterile gauze and Tegaderm was used to cover the surgical site. The patient tolerated the procedure well and without complication. Colors: Areola: Wayne areola (2/3) + baby lips (1/3) Nipple: pink areola Nipple shading: baby lips Plan: Dressings to stay in place for 48 hours. Then, apply ointment daily and prn. Return t o clinic in one month for follow up. documented in this encounter Miscellaneous Notes Scan - Ligia, Faculty - 06/06/2013 4:25 PM PSTElectronically signed by Faculty Other at 4:25 PM PSTdocumented in this encounter Plan of Treatment Not on filedocumented as of this encounter Visit Diagnoses + + | Diagnosis | + + | Acquired Absence of Breast - Primary Acquired absence of breast and nipple | + + | Carcinoma in situ of breast | + + documented in this encounter"
--- OUTSIDE RECORDS SUMMARY | ~2020-05-04 | XMS | Encounter Summary ---
Demographics + + + | Address | [address] | | | [place] [address] | + + + | Home Phone [...] + | Gene Gee | ECON | [address] | | | | | [place], | | | | | [place] [address] | | + + + + + Care Team Providers + +------+ + | Care Mushroom Spawn Maker Name | Role | Phone | + +------+ + | Antony Ribera MD | PCP | | + +------+ + Reason for Visit +---------+ + | Reason | Comments | +---------+ + | Post Op | OP: 03/05/13 elisabet/Alla ann and R medial scar revision | +---------+ + [...] | | | | | | | [facility] for | | | | | | | Health and | | | | | | | Healing, | | | | | | | Building 1, | | | | | | | 5th Floor | | | | | | | [place], [place] | | | | | | | [address] | | | | | | | Phone: | | | | | | | [phone] | +--------+--------+ + + + + Encounter Details +--------+---------+ + + + | Date | Type | Department | Care Team | Description | +--------+---------+ + + + | 03/18/ | Office | Plastic and | Santiago Hu, | Carcinoma in situ of | | 2012 | Visit | Reconstructive | PA-C [address] | breast (Primary Dx) | | | | Surgery at [facility] [address] | | | | | S [facility] | [address] [place], [place] | | | | | for Health and | [phone] | | | | | [facility], [facility] 1, | | | | | | 5th Floor | | | | | | [place], [place] | | | | | | [address] | | | | | | [phone] | | | +--------+---------+ + + + [...] +---------+ + + | Blood Pressure | 121/69 | 03/18/2013 11:06 AM | | | | | PDT | | + +---------+ + + | Pulse | 65 | 03/18/2013 11:06 AM | | | | | PDT | | + +---------+ + + | Temperature | - | - | | + +---------+ + + | Respiratory Rate | - | - | | + +---------+ + + | Oxygen Saturation | 100% | 03/18/2013 11:06 AM | | | | | PDT [...] this encounter Progress Notes Santiago Berumen - 03/18/2013 12:21 PM PDTPlastic and Reconstructive Surgery Post-operative Visit POD# 14 days HPI: Adriana Flynn is a 67 y.o. female who presents today status-post R NAC recon and R medial s car revision on 03/05/13. She has no acute concerns or issues. Has been keeping surgical sit e clean and bandaged. Pt has been taking and completed postop antibiotics as prescribed. Her pain control is good. She is currently taking nothing for pain. Here today for postop evalu ation. Denies constitutional sxs. Denies fever, chills, fatigue. Denies increased surgical site pain, swelling, or progressive redness. PE: Vitals: BP 121/69 | Pulse 65 | SpO2 100% General Appearance: Well-developed, well-nourished female in no apparent distress. Chest: right breast NAC has no swelling, mild resolving ecchymosis. Medial breast incision is c/d/i and well approximated. Nipple has good projection and skin flaps are pink, cap refi ll is 2 sec, and w/o e/o necrosis. There is no erythema, no induration, or drainage. Impression: S/P: R NAC recon and R medial scar revision Doing well Plan: -All sutures out today. -Continue to wash area with soap and running water, no soaking until all scabs have healed and come off. Thin film of abx ointment/vaseline over incisions. Bandage and no bra to prote ct projection of nipple recon for one month postop. -F/U with Dr Gold as scheduled, sooner prn. The patient indicates understanding of these issues and agrees to the plan. Santiago Hu PA-C Dept Plastic/Reconstructive Surgery [facility] Electronically signed on 03/18/2013 at 12:22 PM SANTIAGO HU PA-C. documented in this encounter Plan of Treatment Not on filedocumented as of this encounter Visit Diagnoses + + | Diagnosis | + + | Carcinoma in situ of breast - Primary | + + documented in this encounter"
--- OUTSIDE RECORDS SUMMARY | ~2020-05-04 | XMS | Encounter Summary ---
Demographics + + + | Address | [address] | | | [place] [address] | + + + | Home Phone [...] + | Gene Gee | ECON | [address] | | | | | [place], | | | | | [place] [address] | | + + + + + Care Team Providers + +------+ + | Care Geochemical Manager Name | Role | Phone | [...] | Clinics at [address] [place], | | | | | [place] [address] | [place] [address] [address], [address] | | | | | [facility] for | [address] | | | | | Health and Healing, | [place] [address] | | | | | [address] | | | | | | [place], [place] | | | | | | [address] | | | | | | [phone] | | | +--------+ + + + [...] | Blood Pressure | 113/58 | 06/20/2007 11:11 AM | | | | | PST | | + + + + + | Pulse | 71 | 06/20/2007 11:11 AM | | | | | PST | | + + + + + | Temperature | 37.3 C (99.2 F) | 06/20/2007 11:11 AM | | | | | [...] 67 kg (147 lb 11.3 | 06/20/2007 11:11 AM | | | | oz) [...]
--- OUTSIDE RECORDS SUMMARY | ~2020-05-04 | XMS | Encounter Summary ---
Demographics + + + | Address | [address] | | | [place] [address] | + + + | Home Phone [...] + | Gene Gee | ECON | [address] | | | | | [place], | | | | | [place] [address] | | + + + + + Care Team Providers + +------+ + | Care Inspector Automatic Typewriter Name | Role | Phone | + [...] | Chronic | Pete Sheikh, | [facility] [address] | | | | | cough | MD | [address] | | | | | Procedures | | [place] | | | | | CONSULT TO | | [place], 4th | | | | | GI PROCEDURE | | floor | | | | | UNIT: [address] | | [place], [place] | | | | | PH CONSULT | | [address] | | | | | TO GI | | Phone: | | | | | PROCEDURE | | [phone] | | | | | UNIT: | | Fax: | | | | | ESOPHAGEAL | | [phone] | | | | | MANOMETRY | | | +--------+--------+ + + + + Reason for Visit + +--------+ + | Reason | Onset | Comments | | | Date | | + +--------+ + | Referral To | 12/03/ | patient called to see the ENT bronch notes been | | Gastroenterology | 2013 | received, they haven't, also patient would like a | | | | referral to gastroenterology and a call from you to go | | | | over the plan from last office visit. Thank you | + +--------+ + Encounter Details +--------+ + + + + | Date | Type | Department | Care Team | Description | +--------+ + + + + | 12/03/ | Telephone | Pulmonary & | Pete Gee, | Referral To | | 2012 | | Critical Care | MD | Gastroenterology | | | | Medicine at | | (patient called to | | | | [facility] [place] | | see the ENT bronch | | | | [address] | | notes been received, | | | | Loop [facility] | | they haven't, also | | | | [address], 3rd Floor | | patient would like a | | | | [place], [place] | | referral to | | | | [address] | | gastroenterology and | | | | [phone] | | a call from you to | | | | | | go over the plan | | | | | | from last office | | | | | | visit. Thank you ) | +--------+ + + + + Social [...] Notes Telephone Encounter - Jorden Mccarty - 10/30/2014 8:47 AM PDTThis encounter has been admin istratively closed with the authorization of the [facility] Committee. elephone Encounter - Tony Lopez - 12/03/2012 9:27 AM PDT patient called to see the ENT bronch notes been received, they haven't, also patient would like a referral to gastroenterology and a call from you to go over the plan from last office visit. Thank you docume nted in this encounter Plan of Treatment Not on filedocumented as of this encounter Visit Diagnoses + + | Diagnosis | + + | Chronic cough - Primary Cough | + + documented in this encounter"
--- OUTSIDE RECORDS SUMMARY | ~2020-05-04 | XMS | Encounter Summary ---
Demographics + + + | Address | [address] | | | [place] [address] | + + + | Home Phone [...] + | Gene Gee | ECON | [address] | | | | | [place], | | | | | [place] [address] | | + + + + + Care Team Providers + +------+ + | Care Heavy Media Operator Name | Role | Phone | + +------+ + | Antony Ribera MD | PCP | | + +------+ + Encounter Details +--------+ + + + + | Date | Type | Department | Care Team | Description | +--------+ + + + + | 09/19/ | Vasylt | John Rudolph | Tapan Horowitz MD | RE: Last visit noes | | 2018 | Encounter | [facility] | [address] | | | | | Center at [facility] | Deisi Naqvi [place], | | | | | [address] | [place] [address] | | | | | [address] | [phone] | | | | | Physician's [place] | | | | | | Physician's | | | | | | [place], | | | | | | [place] [address] | | | | | | [phone] | | | +--------+ + + + [...]
--- OUTSIDE RECORDS SUMMARY | ~2020-05-04 | XMS | Encounter Summary ---
Demographics + + + | Address | [address] | | | [place] [address] | + + + | Home Phone [...] + | Gene Gee | ECON | [address] | | | | | [place], | | | | | [place] [address] | | + + + + + Care Team Providers + +------+ + | Care Airport Sales Agent Name | Role | Phone | [...] + + | 05/03/ | Office | Hematology/Medical | Stevan Velazquez, | Breast cancer (HCC) | | 2009 | Visit | Oncology at [facility] | MD [address] | (Primary Dx) | | | | [address] | [place], [place] | | | | | Mailcode: [facility] | [address] | | | | | [facility] | [phone] | | | | | and [place], | | | | | | [facility] | | | | | | Floor [place], [place] | | | | | | [address] | | | | | | [phone] | | | +--------+---------+ + + + [...] + + + | Blood Pressure | 112/60 | 05/03/2010 10:52 AM | | | | | PDT | | + + + + + | Pulse | 62 | 05/03/2010 10:52 AM | | | | | PDT | | + + + + + | Temperature | 36.7 C (98 F) | 05/03/2010 10:52 AM | | | | | PDT | | + + + + + | Respiratory Rate | 15 | 05/03/2010 10:52 AM | | | | | PDT | | + + + + + | Oxygen Saturation | - | - | | + + + + + | Inhaled Oxygen | - | - | | | Concentration | | | | + + + + + | Weight | 66.6 kg (146 lb 14.4 | 05/03/2010 10:52 AM | | | | oz) | PDT | | + + + + + | Height | - | - | | + + + + + | Body Mass Index | 23.53 | 01/27/2010 9:04 AM | | | | | PDT | | + + + + + documented in this encounter Progress Notes Stevan Velazquez MD - 05/03/2010 11:32 AM PDTFormatting of this note might be different fro m the original. Adriana is a pleasant 64 y/o WF with history of right sided breast cancer. Her tumor was T1cN 0 with two lymph nodes involved with isolated tumor cells only. Her tumor was receptor posit wilbert and HER-2/Maddi negative. She completed in the adjuvant setting chemotherapy with four cyc les of taxotere plus cytoxan given every three weeks. She has been on Arimidex for about one year now. Her other medical history includes low bone [...] upper GI endoscopy for recurrent GERD symptoms. FH negative for cancer but mother has osteoporosis SH notable for being , no smoking nor drinking. Hot flushes- Cruises in feb- -5 daily- total heat waves- no sweat- no fever. 5 weeks in total- before the travel/cruise- and 14 days on cruise- then gone. Energy level was good- Plantar facsicitis- and bursitis- got steroid injections twice- which occurred before onset of hot flushes. Off coumadin now Patient on advil for a long time before- helped with pain- tylenol did not work that well. Apr 19 flu shots Tender spot over inner aspect of left thigh- cellulitis- tender and hot- took antibiotics f or ten days bactrim twice a day- no blood clot. Red ness almost all gone- receding in three days. No fever or chills -- took sulfa - no problem. Energy level is good Health club 2-3 weekly- stacking hatfield A little coughing- will see lung doctor- cough more in the fall- when asthma kicks in- not real significant- riding bike half an hour- no trouble- climb up and down stairs- no trouble with breathing Back to where she was before cancer. No numbness or tingling Still with dry mouth or eyes Myralax daily- daily BM- several times a day- soft- no tarry or bloody stool. No swelling of arms or legs- good ROM. No trouble with urination or pain Vagina dryness still a big issue- helped with lubricants. Irregular heart beat under good control. No SOB or cough Right shoulder rotator injury- right shoulder- steroid injection done. No low back pain No headache- only sinus allergy. Mood is good Other ROS is negative. She is to see lung doctor for asthma later this morning. O- Filed Vitals: 05/03/2010 10:52 AM Weight: 66.633 kg (146 lb 14.4 oz) BP: 112/60 Pulse: 62 Temp: 36.7 C (98 F) TempSrc: Oral Resp: 15 PainSc: 0 - Zero Mental status, speech [...] supra-clav or infra-clav LAD Neuro intact Right breast is surgically missing- no concerning mass or nodule over on the right side. No skin rashes. Left breast is without dominant mass or nodule or nipple deformity or discharg e. No overlying skin change Component Latest Ref Rng 01/14/2010 1:13 PM GLUCOSE, PLASMA 60 - 99 mg/dL 79 BUN 6 - 20 mg/dL 11 CREATININE 0.60 - 1.10 mg/dL 0.79 TOTAL PROTEIN 6.1 - 7.9 g/dL 6.7 ALBUMIN 3.5 - 4.7 g/dL 3.8 CALCIUM 8.6 - 10.2 mg/dL 9.7 TOTAL BILIRUBIN 0.3 - 1.2 mg/dL 0.7 ALK PHOS 53 - 141 U/L 74 AST (SGOT) 15 - 41 U/L 25 SODIUM 134 - 143 mmol/L 143 POTASSIUM 3.4 - 5.0 mmol/L 4.1 CHLORIDE 97 - 108 mmol/L 108 CO2 23 - 31 mmol/L 28 ALT (SGPT) 13 - 48 U/L 19 EGFR - FILIPINO > 60 > 60 EGFR NON -FILIPINO > 60 > 60 MAGNESIUM, PLASMA 1.8 - 2.5 mg/dL 2.2 PHOSPHORUS, PLASMA 2.4 - 4.7 mg/dL 3.5 VITAMIN D 25 HYDROXY, SERUM 30 - 80 ng/mL 39 A/P- right sided mastectomy and sentinel node mapping and axillary clearance for T1cN0, rec eptor positive and HER-2 negative IDC. Two nodes were involved with isolated tumor cells onl y. She received adjuvant chemo with taxotere and cytoxan every three weeks for 4 cycles. She is on arimidex since Aug 2007. She is doing well clinically. She has some flare in her asth ma symptoms and will see pulmonary for that. She has negative CBE and no breast specific com plaint. She is RISA from breast cancer perspective. She is to get breast imaging and see Dr. Heart in Jun 2010. She is getting reclast yearly with endocrinology. We discussed increase d hot flushes might be related to steroid injection she received. She has low bone density- encourage calcium and vitamin D intake and weight bearing exercise. Advised follow up with Collins Ribera for yearly lipid profile. No recurrence of abdominal symptoms. Irregular heart beat under good control. I spent more than 40 minutes face to face with the patient, more than half of which was dev oted to direct patient counseling. documented in this en counter Miscellaneous Notes Scan - Other, Faculty - 05/17/2010 12:00 AM PDT can - Other, Faculty - 05/17/2010 12:00 AM PDT documented in this encou nter Plan of Treatment Not on filedocumented as of this encounter Visit Diagnoses + + | Diagnosis | + + | Breast cancer (HCC) - Primary Malignant neoplasm of breast (female), unspecified site | + + documented in this encounter"
--- OUTSIDE RECORDS SUMMARY | ~2020-05-04 | XMS | Encounter Summary ---
Demographics + + + | Address | [address] | | | [place] [address] | + + + | Home Phone [...] + | Gene Gee | ECON | [address] | | | | | [place], | | | | | [place] [address] | | + + + + + Care Team Providers + +------+ + | Care Truck Bracer Name | Role | Phone | + +------+ + | Antony Ribera MD | PCP | | + +------+ + Reason for Visit + + + | Reason | Comments | + + + | Postoperative visit | f/u for tattooing | + + + Consultation (Routine) [...] cancer (HCC) | [address] | MD | | | | | Carcinoma | [address] | | | | | | in situ of | for Health | | | | | | breast | and Healing, | | | | | | Acquired | Building 2 | | | | | | absence of | [place], | | | | | | breast and | [place] | | | | | | nipple | [address] | | | | | | Procedures | Phone: | | | | | | CONSULT TO | [phone] | | | | | | SURGERY - | Fax: | | | | | | PLASTICS | [phone] | | +--------+--------+ + + + + Encounter Details +--------+---------+ + + + | Date | Type | Department | Care Team | Description | +--------+---------+ + + + | 12/29/ | Office | Plastic and | Binu Goldbrandy | Acquired Absence of | | 2013 | Visit | Reconstructive | MD [address]anda [address] | Breast (Primary Dx); | | | | Surgery at [facility] [address] | Carcinoma in situ | | | | [facility] | [address] [place], [place] | of breast | | | | for Health and | [address] | | | | | Healing, Building [address], | | | | | | 5th Floor | | | | | | [place], [place] | | | | | | [address] | | | | | | [phone] | | | +--------+---------+ + + + [...] + + + | Blood Pressure | 136/73 | 12/29/2013 1:43 PM | | | | | PDT | | + + + + + | Pulse | 65 | 12/29/2013 1:43 PM | | | | | PDT | | + + + + + | Temperature | - | - | | + + + + + | Respiratory Rate | 16 | 12/29/2013 1:43 PM | | | | | PDT | | + + + + + | Oxygen Saturation | 100% | 12/29/2013 1:43 PM | | | | | PDT | | + + + + + | Inhaled Oxygen | - | - | | | Concentration | | | | + + + + + | Weight | 66.4 kg (146 lb 6.4 | 12/29/2013 1:43 PM | | | | oz) | PDT | | + + + + + | Height | - | - | | + + + + + | Body Mass Index | 24.36 | 11/27/2013 1:38 PM | | | | | PDT | | + + + + + documented in this encounter Progress Notes Errol Gold Md - 12/29/2013 3:18 PM PDTPlastic and Reconstructive Surgery Follow-up History of Present Illness: Adriana J Brill is a 68 y.o. female presents today status-post b ilateral areolar micropigmentation on November 27, 2013. Doing well happy with results Physical Exam: Vitals: BP 136/73 | Pulse 65 | RR 16 | Wt 66.407 kg (146 lb 6.4 oz) | SpO2 100% | BMI 24.36 kg/(m^2) General Appearance: Well-developed, well-nourished adult female in no apparent distress. Good color match bilaterally Impression: Status post implant based reconstruction Plan: Return to clinic as needed We discussed that I will be leaving [facility] as of January 11, and that I would be handing over her care to my capable colleagues. It has been a pleasure caring for this pleasant patient. 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
--- OUTSIDE RECORDS SUMMARY | ~2020-05-04 | XMS | Encounter Summary ---
Demographics + + + | Address | [address] | | | [place] [address] | + + + | Home Phone [...] + | Gene Sahil | ECON | [address] | | | | | [place], | | | | | [place] [address] | | + + + + + Care Team Providers + +------+ + | Care Health And Safety Trainer Name | Role | Phone | + +------+ + PCP | Unavailable | + +------+ + Encounter Details +--------+ + + + + | Date | Type | Department | Care Team | Description | +--------+ + + + + | 02/07/ | Letter-Stub[facility] | | Letter, Clinic | Letters | | 2005 | scribed | | | | +--------+ [...] as of this encounter Progress Notes Interface, Dollyman In - 02/13/2005 8:54 AM PDT [id number] 02/07/2005 02/07/2005 [id number] SAHIL Holman [address] [address] or Department of Cardiology February 09, 2005 Saman Ribera M.D. [place], [place] RE: ADRIANA BAXTER MR #: [id number] Dear Saman: I had the pleasure seeing Adriana Baxter in clinic today. My thoughts are summarized in the enclosed note. Unfortunately, Redds arrhythmia was somewhat difficult to induce at the time of the procedure which made it somewhat more difficult to have a clear end point. She does seem to be somewhat improved since the procedure, although I would be very reluctant to say that we have cured her of her problem. I did ask her to return to see me in six months' time. Thank you again for allowing me to see Mrs. Baxter with you. Please let me know if you have any question regarding management. Sincerely, Gary Fuentes M.D. THERON / FRANCA [id number] / [id number] / [id number] / documented i n this encounter Plan of Treatment Not on filedocumented as of this encounter Visit Diagnoses Not on filedocumented in this encounter"
--- OUTSIDE RECORDS SUMMARY | ~2020-05-04 | XMS | Encounter Summary ---
Demographics + + + | Address | [address] | | | [place] [address] | + + + | Home Phone [...] + | Gene Gee | ECON | [address] | | | | | [place], | | | | | [place] [address] | | + + + + + Care Team Providers + +------+ + | Care Marketer Name | Role | Phone | + +------+ + | Antony Ribera MD | PCP | | + +------+ + Reason for Visit + +--------+ + | Reason | Onset | Comments | | | Date | | + +--------+ + | Refill Request | 02/28/ | | | | 2011 | | + +--------+ + Encounter Details +--------+--------+ + + + | Date | Type | Department | Care Team | Description | +--------+--------+ + + + | 02/28/ | Refill | Cardiology | Gary Fuentes MD | Refill Request | | 2011 | | Arrhythmia at [facility] | [address] | | | | | [address] | [address] [place], | | | | | [facility] | [place] [address] | | | | | and Healing, | [phone] | | | | | [facility] | | | | | | Floor [place], [place] | | | | | | [address] | | | | | | [phone] | | | +--------+--------+ + + + [...]
--- OUTSIDE RECORDS SUMMARY | ~2020-05-04 | XMS | Encounter Summary ---
Demographics + + + | Address | [address] | | | [place] [address] | + + + | Home Phone [...] + | Gene Gee | ECON | [address] | | | | | [place], | | | | | [place] [address] | | + + + + + Care Team Providers + +------+ + | Care Irrigation Pump Installer Name | Role | Phone | + +------+ + | Antony Ribera MD | PCP | | + +------+ + Encounter Details +--------+ + + + + | Date | Type | Department | Care Team | Description | +--------+ + + + + | 10/09/ | MyChart | Cardiology | Elijah Whalen, | RE: Monique Fuller. | | 2017 | Encounter | Arrhythmia at [facility] | [address] | Request for BP | | | | [address] | [address] | readings | | | | Center for Health | [place], [place] | | | | | and Healing, | [address] | | | | | [facility] | [phone] | | | | | Floor [place], [place] | | | | | | [address] | | | | | | [phone] | | | +--------+ + + + [...]
--- OUTSIDE RECORDS SUMMARY | ~2020-05-04 | XMS | Encounter Summary ---
Demographics + + + | Address | [address] | | | [place] [address] | + + + | Home Phone [...] + | Gene Gee | ECON | [address] | | | | | [place], | | | | | [place] [address] | | + + + + + Care Team Providers + +------+ + | Care Clinical Training Coordinator Name | Role | Phone | + +------+ + | Antony Ribera MD | PCP | | + +------+ + Encounter Details +--------+ + + + + | Date | Type | Department | Care Team | Description | +--------+ + + + + | 02/27/ | MyChart | Plastic and | Errol Gold | RE: Left breast | | 2012 | Encounter | Reconstructive | MD [address] | continued pain | | | | Surgery at [facility] [address] | | | | | [facility] | [address] [facility], [place] | | | | | for Health and | [address] | | | | | Healing, Building [address], | | | | | | [facility] [facility] | | | | | | [place], [place] | | | | | | [address] | | | | | | [phone] | | | +--------+ + + + [...] Telephone Encounter - Simran Roque MA - 02/27/2013 2:18 PM PDTReplied to patient per Dr. Dennys Gold instructions. documented in this encounter Plan of Treatment Not on filedocumented as of this encounter Visit Diagnoses Not on filedocumented in this encounter"
--- OUTSIDE RECORDS SUMMARY | ~2020-05-04 | XMS | Encounter Summary ---
Demographics + + + | Address | [address] | | | [place] [address] | + + + | Home Phone [...] + | Gene Gee | ECON | [address] | | | | | [place], | | | | | [place] [address] | | + + + + + Care Team Providers + +------+ + | Care Sustainable Agriculture Specialist Name | Role | Phone | + +------+ + | Antony Ribera MD | PCP | | + +------+ + Reason for Visit +--------+--------+ + | Reason | Onset | Comments | | | Date | | +--------+--------+ + | Other | 07/01/ | | | | 2011 | | +--------+--------+ + Encounter Details +--------+ + + + + | Date | Type | Department | Care Team | Description | +--------+ + + + + | 07/01/ | Telephone | Plastic and | Kelsi Lopez | Other | | 2011 | | Reconstructive | MD Sudhir | | | | | Surgery at [facility] [address] | | | | | | [facility] | | | | | | for Health and | | | | | | Healing, [address], | | | | | | 5th Floor | | | | | | [place], [place] | | | | | | [address] | | | | | | [phone] | | | +--------+ + + + [...] Notes Telephone Encounter - Jenny Meyer - 07/01/2012 11:28 AM PSTI called and spoke to Mrs. Flynn and her . They live 4 hours away and would like to know if her drain could be removed. Pt reports her drainage has been below 10 mL for two consecutive days. I instructed pt on how to remove her drain. They will call with further questions or concerns. Next Appointment in [facility] is on 07/04/12 at 1:20 pm with Santiago Quijano PA-C. elephone Encounter - F [place] - 07/01/2012 9:39 AM PSTPatient called, she is having some redness ede und the drain tube and would like to know if that is normal. documented in this encounter Plan of Treatment Not on filedocumented as of this encounter Visit Diagnoses Not on filedocumented in this encounter"
--- OUTSIDE RECORDS SUMMARY | ~2020-05-04 | XMS | Encounter Summary ---
Demographics + + + | Address | [address] | | | [place] [address] | + + + | Home Phone [...] + | Gene Gee | ECON | [address] | | | | | [place], | | | | | [place] [address] | | + + + + + Care Team Providers + +------+ + | Care Busboy Name | Role | Phone | + +------+ + | Antony Ribera MD | PCP | | + +------+ + Encounter Details +--------+ + + + + | Date | Type | Department | Care Team | Description | +--------+ + + + + | 04/08/ | MyChart | John [facility]olph | Tapan Horowitz MD | RE: lab tests | | 2011 | Encounter | [facility] | [address] | | | | | Center at Phys[facility] | [address] [place], | | | | | [address] | [place] [address] | | | | | [address] | [phone] | | | | | Physician's | | | | | | [address], 1st floor | | | | | | [place], [place] | | | | | | [address] | | | | | | [phone] | | | +--------+ + + + [...]
--- OUTSIDE RECORDS SUMMARY | ~2020-05-04 | XMS | Encounter Summary ---
Demographics + + + | Address | [address] | | | [place] [address] | + + + | Home Phone [...] + | Gene Gee | ECON | [address] | | | | | [place], | | | | | [place] [address] | | + + + + + Care Team Providers + +------+ + | Care Publications Sales Representative Name | Role | Phone | + +------+ + | Alec Hill MD | PCP | | + +------+ + Reason for Visit + +--------+ + | Reason | Onset | Comments | | | Date | | + +--------+ + | Radiology Order | 12/22/ | CT chest | | | 2013 | | + +--------+ + Encounter Details +--------+ + + + + | Date | Type | Department | Care Team | Description | +--------+ + + + + | 12/22/ | Telephone | Pulmonary & | Thalia Barnard, | Radiology Order (CT | | 2013 | | Critical Care | [facility] | chest) | | | | Medicine at | [facility] | | | | | [facility] | [address] | | | | | [address] | [address] [place], | | | | | [facility] | [place] [address] | | | | | [place], [facility] Floor | [phone] | | | | | [place], [place] | | | | | | [address] | | | | | | [phone] | | | +--------+ + + + [...] Notes Telephone Encounter - Carmen Roque - 12/22/2013 10:43 AM PDTSpoke to Adriana. She would like the CT chest order to be faxed to [facility] in [place]. Faxed order to diagnostic imaging. 10:4 4 AM PDTdocumented in this encounter Plan of Treatment Not on filedocumented as of this encounter Visit Diagnoses Not on filedocumented in this encounter"
--- OUTSIDE RECORDS SUMMARY | ~2020-05-04 | XMS | Encounter Summary ---
Demographics + + + | Address | [address] | | | [place] [address] | + + + | Home Phone [...] + | Gene Gee | ECON | [address] | | | | | [place], | | | | | [place] [address] | | + + + + + Care Team Providers + +------+ + | Care Air Carrier Operations Inspector Name | Role | Phone | [...] Closed | | Gastroenterol | Diagnoses | Maribell | Gas Endo | | | | ogy | IBS | MD Bob | [address] | | | | | (irritable | [address] | [address] | | | | | bowel | Ave | [place] | | | | | syndrome) | [place], [place] | Pavilion, 4th | | | | | Procedures | [address] | floor | | | | | CONSULT TO | Phone: | [place], [place] | | | | | GI PROCEDURE | [phone] | [address] | | | | | UNIT: | Fax: | Phone: | | | | | COLONOSCOPY | | [phone] | | | | | | | Fax: | | | | | | | | +--------+--------+ + + + + Encounter Details +--------+---------+ + + + | Date | Type | Department | Care Team | Description | +--------+---------+ + + + | 06/13/ | Office | Digestive Health | Bob Reyna MD | IBS (Irritable Bowel | | 2005 | Visit | Center at [facility] [address] | [address] | Syndrome) (Primary | | | | [address] | [place], [place] | Dx) | | | | for Health and | [address] | | | | | Healing, [address] | [phone] | | | | | [place], [place] | | | | | | [address] | | | | | | [phone] | | | +--------+---------+ + + + [...] + + + | Blood Pressure | 127/70 | 06/13/2006 8:42 AM | | | | | PST | | + + + + + | Pulse | 66 | 06/13/2006 8:42 AM | | | | | PST | | + + + + + | Temperature | 36.2 C (97.2 F) | 06/13/2006 8:42 AM | | | | | PST | | + + + + + | Respiratory Rate | 16 | 06/13/2006 8:42 AM | | | | | PST | | + + + + + | Oxygen Saturation | - | - | | + + + + + | Inhaled Oxygen | - | - | | | Concentration | | | | + + + + + | Weight | 63.9 kg (140 lb 14.4 | 06/13/2006 8:42 AM | | | | oz) | PST | | + + + + + | Height | 167.6 cm (5' 6") | 06/13/2006 8:42 AM | | | | | PST | | + + + + + | Body Mass Index | 22.74 | 06/13/2006 8:42 AM | | | | | PST | | + + + + + documented in this encounter Progress Urvashi Maribell Bob - 06/13/2006 9:50 AM PSTThis office note has been dictated.Electronically sign ed by Bob Reyna at 06/13/2006 9:50 AM PSTdocumented in this encounter Plan of Treatment Not on filedocumented as of this encounter Results PROTHROMBIN TIME (06/13/2006 9:51 AM PST) + [...] | + + + + + | [facility] | [address] [facility] | [place] [address] | | | PATHOLOGY | [address] | | | + + + + + | [facility] | [facility] | [place] [address] | | | PATHOLOGY | [address] [...] | + + + + + | [facility] | [facility] | [place] [address] | | | PATHOLOGY | [address] | | | + + + + + | [facility] | [facility] [address] | [place] [address] | | | PATHOLOGY | [address] [...] Performed At | + + + | [id number] Estimated GFR > 60 mL/min/1.73 sq m if non- | [facility] | | [id number] Estimated GFR > 60 mL/min/1.73 sq m [...] | + + + + + | [facility] | [address] | [place] [address] | | | PATHOLOGY | [address] | | | + + + + + | [facility] | [address] | [place] [address] | | | PATHOLOGY | [address] | | | + + + + + documented in this encounter Visit Diagnoses + + | Diagnosis | + + | IBS (irritable bowel syndrome) - Primary Irritable bowel syndrome | + + documented in this encounter
--- OUTSIDE RECORDS SUMMARY | ~2020-05-04 | XMS | Encounter Summary ---
Demographics + + + | Address | [address] | | | [place] [address] | + + + | Home Phone [...] + | Gene Gee | ECON | [address] | | | | | [place], | | | | | [place] [address] | | + + + + + Care Team Providers + +------+ + | Care Shredder Tender Peat Name | Role | Phone | + +------+ + | Antony Ribera MD | PCP | | + +------+ + Encounter Details +--------+ + + + + | Date | Type | Department | Care Team | Description | +--------+ + + + + | 09/09/ | Documentati | Pulmonary & | Lulu Lima, | | | 2008 | on | Critical Care | | | | | | Medicine at | | | | | | [facility] | | | | | | [address] | | | | | | [address] [facility] | | | | | | Pavilion, 3rd Floor | | | | | | [place], [place] | | | | | | [address] | | | | | | [phone] | | | +--------+ + + + [...] this encounter Miscellaneous Notes Telephone Encounter - Mary Buchanan, Lulu Guadalupe - 09/09/2008 3:43 PM PSTReviewed outside rheum records from Dr. Philip Monte: -initially seen in Dr. Monte's office in 1995, most recently in 2006 -had brief course of plaquenil in 1995 -labs 2007: CT 1:80 (decreased from prior) CPK 178 LULU LIMA MD [facility] [address] [place] [address] Mailcode: [id number] [place] [address] documented in this encounter Plan of Treatment Not on filedocumented as of this encounter Visit Diagnoses Not on filedocumented in this encounter"
--- OUTSIDE RECORDS SUMMARY | ~2020-05-04 | XMS | Encounter Summary ---
Demographics + + + | Address | [address] | | | [place] [address] | + + + | Home Phone [...] + | Gene Gee | ECON | [address] | | | | | [place], | | | | | [place] [address] | | + + + + + Care Team Providers + +------+ + | Care Auto Self Service Station Attendant Name | Role | Phone | + +------+ + | Antony Ribera MD | PCP | | + +------+ + Reason for Visit + +--------+ + | Reason | Onset | Comments | | | Date | | + +--------+ + | Osteoporosis | 11/08/ | | | | 2009 | | + +--------+ + Encounter Details +--------+ + + + + | Date | Type | Department | Care Team | Description | +--------+ + + + + | 11/08/ | Telephone | John Rudolph | Tapan Rich MD | Osteoporosis | | 2009 | | [facility] | [address] [facility] | | | | | [facility] at [facility] | [address] [place], | | | | | Pav[address] | [place] [address] | | | | | [address] | [phone] | | | | | Physician's | | | | | | Pavilion, 1st floor | | | | | | [place], [place] | | | | | | [address] | | | | | | [phone] | | | +--------+ + + + [...] encounter Miscellaneous Notes Telephone Encounter - Tapan Rich MD - 11/08/2009 3:43 PM PDT Addended by: JOLLY RICH MD on: 11/08/2009 Modules accepted: Orders elephone Encounter - Tapan Rich MD - 11/08/2009 3:43 PM PDTEndo staff: Will order labs for pt in preparation for reclast. Will need labs first before any infusion elephone Encounter - Tommie Katie - 11/08/2009 3:39 PM PDTNoti fied patient. She is coming to [place] on January 25 as well, and wonders if she can do her infusion before she sees you. Please advise. Her last reclast infusion was on 01/19/09 and she is not sure how exact to one year the next one needs to be done. elephone Encounter - Tapan Rich MD - 11/08/2009 1:5 9 PM PDTEndo staff: tell pt that i need to see her first, get labs, and then the reclast is ordered. No same day infusions with appt.Electronically signed by Tapan Rich MD at 010 1:59 PM PDTTelephone Encounter - Luiza Barker - 11/08/2009 11:49 AM PDTPt has a bone density and a fu with CV on 01.28.10, she wants to know if its ok to have her Reclast infus ion the same day in order to save trips to [facility]. If so please place orders and inform pt th ey have been placed so she may call Rheum and schedule. documented in this encounter Plan of Treatment [...] | | | | | | 20 ng/mL(Evangelista CL et | | | | | | [...] | | | | | | [address] [facility], | | | | | | [place] [address] | | | | | | [phone] | | | | | | | | | | | | [email or web address], | | | | | | Lucinda [...] [facility] | [address] | [place], [place] | | | [facility] | | [address] | | + + + + + PHOSPHORUS, PLASMA (01/14/2010 1:13 PM PDT) + +-------+ + + + | Component | Value | Ref Range | Performed | Pathologist | | | | | At | Signature | + +-------+ + + + | PHOSPHORUS, | 3.5 | 2.4 - 4.7 mg/dL | [facility] | | | PLASMA | | | [...] DEPARTMENT OF | [address] | [place] [address] | | | PATHOLOGY | [address] [...] DEPARTMENT OF | [address] | [place] [address] | | | PATHOLOGY | [address] [...] 79 | 60 - 99 mg/dL | [facility] | | | PLASMA | | [...] | | | DEPARTMENT | | | [facility] | | | OF | | | [...] + + + + + | [facility] | [address] | [place] [address] | | | PATHOLOGY | [address] | | | + + + + + documented in this encounter Visit Diagnoses + + | Diagnosis | + + | Osteopenia - Primary Disorder of bone and cartilage, unspecified | + + documented in this encounter"
--- OUTSIDE RECORDS SUMMARY | ~2020-05-04 | XMS | Encounter Summary ---
Demographics + + + | Address | [address] | | | [place] [address] | + + + | Home Phone [...] + | Gene Gee | ECON | [address] | | | | | [place], | | | | | [place] [address] | | + + + + + Care Team Providers + +------+ + | Care Newsperson Name | Role | Phone | + [...] | | | | | Procedures | [place], [place] | Health and | | | | | BONE | [address] | Healing, | | | | | DENSITY | Phone: | [address] | | | | | PROCEDURE | [phone] | [place], [place] | | | | | | Fax: | [address] | | | | | | [phone] | Phone: | | | | | | | [phone] | | | | | | | Fax: | | | | | | | [phone] | +--------+--------+ + + + + Encounter Details +--------+---------+ + + + | Date | Type | Department | Care Team | Description | +--------+---------+ + + + | 06/06/ | Office | Bone Density at | | Disorder of bone and | | 2012 | Visit | [facility] [address] | | cartilage, | | | | [facility] | | unspecified (Primary | | | | and Healing, | | Dx) | | | | [address] | | | | | | [place], [place] | | | | | | [address] | | | | | | [phone] | | | +--------+---------+ + + + [...] of this encounter Progress Kendra Guerrero - 06/06/2013 1:40 PM PSTBone density scans performed. Upon completion of the Interpretation Report, the report and DXA scan images will be scanne d into [employer] and will be located in the patient's Chart Review, under the Media tab. documented in this encount er Procedure Notes Ligia Faculty - 06/20/2013 8:15 PM PSTAssociated Order(s): BONE DENSITOMETRYElectronicall y signed by Gisele Strong at 06/20/2013 8:15 PM PSTdocumented in this encounter Miscellaneous Notes Scan - Gisele Strong - 06/20/2013 8:15 PM PSTElectronically signed by Faculty Other at 8:15 PM PSTdocumented in this encounter Plan of Treatment Not on filedocumented as of this encounter Procedures + +--------+ + + + | Procedure Name | Priori | Date/Time | Associated Diagnosis | Comments | | | ty | | | | + +--------+ + + + | BONE DENSITOMETRY | | 06/06/2013 | | Results for this | | | | 12:00 AM | | procedure are in the | | | | PST | | results section. | + +--------+ + + + documented in this encounter Results BONE DENSITOMETRY (06/06/2013 12:00 AM PST) + + + | Narrative | Performed At | + + + | | | | | | + + + + + | Procedure Note | + + | Gisele Strong - 06/20/2013 8:15 PM PST | + + documented in this encounter Visit Diagnoses + + | Diagnosis | + + | Disorder of bone and cartilage, unspecified - Primary | + + documented in this encounter"
--- OUTSIDE RECORDS SUMMARY | ~2020-05-04 | XMS | Encounter Summary ---
Demographics + + + | Address | [address] | | | [place] [address] | + + + | Home Phone [...] + | Gene Gee | ECON | [address] | | | | | [place], | | | | | [place] [address] | | + + + + + Care Team Providers + +------+ + | Care Therapeutic Activities Services Worker Name | Role | Phone | + +------+ + | Antony Ribera MD | PCP | | + +------+ + Reason for Visit + +--------+ + | Reason | Onset | Comments | | | Date | | + +--------+ + | Infusion | 01/27/ | | | | 2009 | | + +--------+ + Encounter Details +--------+ + + + + | Date | Type | Department | Care Team | Description | +--------+ + + + + | 01/27/ | Clinical | Rheumatology at | | Infusion | | 2009 | Support | [facility] [address] | | | | | Staff | [address] | | | | | | Physician's | | | | | | [address], 4th Floor | | | | | | [place], [place] | | | | | | [address] | | | | | | [phone] | | | +--------+ + + + [...] + | Blood Pressure | 118/72 | 01/27/2010 11:27 AM | | | | | PDT | | + + + + + | Pulse | 68 | 01/27/2010 11:27 AM | | | | | PDT | | + + + + + | Temperature | 36.2 C (97.2 F) | 01/27/2010 11:27 AM | | | | | PDT | | + + + + + | Respiratory Rate | 20 | 01/27/2010 11:27 AM | | | | | [...] in this encounter Progress Ita Kc - 01/27/2010 11:28 AM PDTFormatting of this note might be different from zachariah tamez. INFUSION NURSING NOTE Physician: Carlos Manuel Subjective: Feeling good today Pre-Infusion Pain Score: Patient reports a pain level of 0 today. Weight: Wt Readings from Last 1 Encounters: 01/27/2010 65.499 kg (144 lb 6.4 oz) Heart / Lung Sounds: 68 Labs: None Venous Access: Left Hand with Iv start kit Needle Gauge: 24 IV flushed with NS Premedications: None Infusioned medications: reclast Total Amount of Infused Medication: Reclast 5 mg Start Time: 1125 Stop Time: 1155 Total Infusion Time: 30 minutes Rate:cc/hr Time: ml/min BP: HR: R: T: Symptoms 1100 118/72 68 20 36.2 175 1125 Reclast started 1155 114/70 64 20 36.2 Reclast infused and dc'd Post-Infusion Pain Score: 0/10 Assessment: Tolerated procedure, IV Discontinued and Intact documented in this encoun ter Plan of Treatment Not on filedocumented as of this encounter Visit Diagnoses + + | Diagnosis | + + | Osteoporosis, unspecified - Primary | + + documented in this encounter"
--- OUTSIDE RECORDS SUMMARY | ~2020-05-04 | XMS | Encounter Summary ---
Demographics + + + | Address | [address] | | | [place] [address] | + + + | Home Phone [...] + | Gene Gee | ECON | [address] | | | | | [place], | | | | | [place] [address] | | + + + + + Care Team Providers + +------+ + | Care Automation Technologist Name | Role | Phone | + +------+ + | Antony Ribera MD | PCP | | + +------+ + Encounter Details +--------+ + + + + | Date | Type | Department | Care Team | Description | +--------+ + + + + | 09/24/ | Results | Surgical Oncology | [facility], | | | 2014 | Only | at [facility] [address] | [address] | | | | | Ave Center for | [place], [place] | | | | | Health and Healing, | [address] | | | | | [address] | [phone] | | | | | [place], [place] | | | | | | [address] | | | | | | [phone] | | | +--------+ + + + [...] | AIDE BEE DIAGNOSTIC | Routin | 09/24/2014 | | Results for this | | LEFT W/CAD | e | 1:37 PM | | procedure are in the | | | | PDT | | results section. | + +--------+ + + + documented in this encounter Results [facility] LEFT W/CAD (09/24/2014 1:37 PM PDT) + + + + + [...] | | | performed 1 year and 2 | | | | | | months ago.Reason for | | | | | | exam: history of breast | | | | | | cancer, mastectomy. MA | | | | | | CRISTAL DIAGNOSTIC LEFT | | | | | | W/CAD: September 24, 2014 - | | | | | | | | | | | | and MLO view(s) were | | | | | | taken of the left | | | | | | breast.Technologist: | | | | | | RT Earnest | | | | | | (R)(M)Prior study | | | | | | comparison: July 21, | | | | | | 2013, MA DIGITAL MAMMO | | | | | | DIAGLEFT w/CAD performed | | | | | | at [facility] | | | | | [facility] | | | | | | [facility].May 02, | | | | | | 2011, [place] DIGITAL MAMMO | | | | | | DIAG LEFT performed at | | | | | | [facility] | | | | | | [place].There are | | | | | | scattered fibroglandular | | | | | | densities. 3D | | | | | | tomosynthesismammography | | | | | | was performed as part | | | | | | of this exam. Status | | | | | | post rightmastectomy. | | | | | | Post-reduction changes | | | | | | on the left. No | | | | | | [...] | | | | | | at [facility] and | | | | | | [facility]. | | | | | | ASSESSMENT: Benign - | | | | | | Category 2 | | | | | | RECOMMENDATION:Follow-up | | | | | | diagnostic mammogram of | | | | | | the left breast in 1 | | | | | | year. Attending | | | | | | Radiologists: CRYSTAL | | | | | | MARCI BARBAuthor: Alena | | | | | | have personally viewed | | | | | | this procedure/exam, | | | | | | reviewed this report, | | | | | | and madechanges to it | | | | | | where appropriate. | | | | | | Final/Electronically | | | | | | raad / CRYSTAL BARBA | | | | | | 09/24/2014 15:42 PM | | | | + + [...]
--- OUTSIDE RECORDS SUMMARY | ~2020-05-04 | XMS | Encounter Summary ---
Demographics + + + | Address | [address] | | | [place] [address] | + + + | Home Phone [...] + | Gene Gee | ECON | [address] | | | | | [place], | | | | | [place] [address] | | + + + + + Care Team Providers + +------+ + | Care Business Analyst Manager Name | Role | Phone | + +------+ + | Antony Ribera MD | PCP | | + +------+ + Encounter Details +--------+ + + + + | Date | Type | Department | Care Team | Description | +--------+ + + + + | 12/24/ | Document-Sc | Health Information | Unknown . | | | 2013 | anned | Services [address] | | | | | [address] | | | | | | Mailcode: [id number] | | | | | | [facility] | | | | | | [place], [place] | | | | | | [address] | | | | | | [phone] | | | +--------+ + + + [...] this encounter Procedure Urvashi Strong, Faculty - 01/27/2014 1:01 PM PDTAssociated Order(s): RADIOLOGY documented in this encounter Plan of Treatment Not on filedocumented as of this encounter Procedures + +--------+ + + + | Procedure Name | Priori | Date/Time | Associated Diagnosis | Comments | | | ty | | | | + +--------+ + + + | RADIOLOGY | | 12/24/2013 | | Results for this | | | | 12:00 AM | | procedure are in the | | | | PDT | | results section. | + +--------+ + + + documented in this encounter Results RADIOLOGY (12/24/2013 12:00 AM PDT) + + + | Narrative | Performed At | + + + | | | | | | + + + + + | Procedure Note | + + | Gisele Strong - 01/27/2014 1:01 PM PDT | + + documented in this encounter Visit Diagnoses Not on filedocumented in this encounter"
--- OUTSIDE RECORDS SUMMARY | ~2020-05-04 | XMS | Encounter Summary ---
Demographics + + + | Address | [address] | | | [place] [address] | + + + | Home Phone [...] + | Gene Gee | ECON | [address] | | | | | [place], | | | | | [place] [address] | | + + + + + Care Team Providers + +------+ + | Care Armored Transport Service Manager Name | Role | Phone | [...] | | | | [address] | [facility], | | | | | [place] | [place] [address] | | | | | 3rd floor [place], | | | | | | [place] [address] | | | | | | [phone] | | | +--------+ + + + [...] this encounter Procedure Urvashi Strong, Faculty - 01/29/2009 10:18 AM PDTAssociated Order(s): ADULT PULMONARY FUNCTION; ADUL T PULMONARY FUNCTION Umesh, Faculty - 009 9:18 AM PDTAssociated Order(s): ADULT PULMONARY FUNCTION; ADULT PULMONARY FUNCTION documented in this encou nter Plan of Treatment Not on filedocumented as of this encounter Procedures + +--------+ + + + | Procedure Name | Priori | Date/Time | Associated Diagnosis | Comments | | | ty | | | | + +--------+ + + + | PULMONARY FUNCTION | Routin | 12/28/2008 | | Results for this | | | e | 3:31 PM | | procedure are in the | | | | PDT | | results section. | + +--------+ + + + | RESP CARE THERAPY | Routin | 12/28/2008 | | Results for this | | | e | 3:29 PM | | procedure are in the | | | | PDT | | results section. | + +--------+ + + + | ADULT PULMONARY | | 12/28/2008 | | Results for this | | FUNCTION | | 2:12 PM | | procedure are in the | | | | PDT | | results section. | + +--------+ + + + | ADULT PULMONARY | | 12/28/2008 | | Results for this | | FUNCTION | | 12:00 AM | | procedure are in the | | | | PDT | | results section. | + +--------+ + + + documented in this encounter Results RESP CARE PULMONARY FUNCTION (12/28/2008 3:31 PM PDT) + + + + + + | Component | Value | Ref Range | Performed | Pathologist | | | | | At | Signature | + + + + + + | PULMONARY | Spirometry, lung | | [facility] | | | FUNCTION | volumes, and DLCO were | | RESPIRATORY | | | | performed:Spirometry | | THERAPY | | | | results were the | | | | | | following:FVC=3.19FVC% | | | | | | predicted=12ITT5=6.30FEV | | | | | | 1% | | | | | | predicted=90FEV1/FVC=72F | | | | | | EF 25-75=1.51FEF 25-75% | | | | | | predicted=68PEF=7.97PEF% | | | | | | kmntivfaw=963Maws | | | | | | volume results were the | | | | | | following:VC=3.55VC% | | | | | | vabdlouac=375UJO=8.17ERV | | | | | | % | | | | | | nocuhbngw=724SN=1.37IC% | | | | | | rdencodqc=170EUK=1.95FRC | | | | | | % predicted=98RV=1.77RV% | | | | | | | | | | | | predicted=82TLC=5.32TLC% | | | | | | zlzygddhe=103GRJW | | | | | | results were the | | | | | | following:Dsb=17.0 | | | | | | ml/min/mmHgDsb% | | | | | | predicted=94D/VA=3.77D/V | | | | | | A% predicted=85VA (sb) | | | | | | (L)=4.52VA (sb) (L)% | | | | | | predicted=90Adjusted for | | | | | | Hb of 13.3 gm/dL.Lots | | | | | | of coughing with | | | | | | spirometry trials. | | | | | | Patient was unable to | | | | | | completesome of the | | | | | | inspiratory loops.Six | | | | | | minute walk was | | | | | | performed. Patient | | | | | | walked 1100 feet in 6 | | | | | | minutes. Priorto walk | | | | | | test, the at rest heart | | | | | | rate was 70 and the SPO2 | | | | | | was 98. Afterwalk | | | | | | heart rate was 108 and | | | | | | SPO2 was 9. 2 The | | | | | | patient's test was | | | | | | performedon room | | | | | | air.HEMATOLOGYAgeMaleFem | | | | | | aleHemoglobin g/dL2 - 6 | | | | | | yrs.6 - 12 yrs.12 - 18 | | | | | | yrs.18 - 150 | | | | | | yrs.11.5-13.511.5-15.513 | | | | | | .0-16.013.5-17.511.5-13. | | | | | | 511.5-15.512.0-16.012.0- | | | | | | 16.0(DLCO values are | | | | | | corrected for | | | | | | hemoglobin)Electronicall | | | | | | y Signed by: Kathy | | | | | | DAVID Guardado | | | | + + + + + + + + | Specimen | + + | | + + + + + + + | Performing | Address | City/State/Zipcode | Phone Number | | Organization | | | | + + + + + | [facility] | [address] | [place], [place] | | | THERAPY | [address] | [address] | | + + + + + | [facility] | [address] | [place], [place] | | | THERAPY | [address] | [address] | | + + + + + RESP CARE THERAPY (12/28/2008 3:29 PM PDT) + + + + + + | Component | Value | Ref Range | Performed | Pathologist | | | | | At | Signature | + + + + + + | RESPIRATORY | Respiratory Care | | [facility] | | | CARE | Discharge | | RESPIRATORY | | | | PlanningDesaturation | | THERAPY | | | | Evaluation for Oxygen | | | | | | Use at HomePurpose for | | | | | | evaluation: Desaturation | | | | | | evaluation for initial | | | | | | qualificationfor home | | | | | | O2.Ordering | | | | | | Provider:Navin | | | | | | KhanDiagnosis: pulmonary | | | | | | hypertension, 416.8 | | | | | | 416.8 ICD-9Evaluation | | | | | | ResultsThe baseline SPO2 | | | | | | was 98 %. on room air | | | | | | at rest.The SPO2 was | | | | | | 94 %. on room air during | | | | | | exercise. Overnight | | | | | | Pulse Oximetry Study may | | | | | | benefit patient for O2 | | | | | | qualification atnight. | | | | | | (resting/RA and | | | | | | exercise/RA SPO2 are | | | | | | above qualifying | | | | | | standards).Questions | | | | | | about the O2 evaluation | | | | | | can be referred to the | | | | | | RT DischargePlanner by | | | | | | kasie | | | | | | [phone].Electronically | | | | | | Signed by: Kathy Guardado, | | | | | | ACTIONSCRIPT DEVELOPER | | | | + + + + + + + + | Specimen | + + | | + + + + + + + | Performing | Address | City/State/Zipcode | Phone Number | | Organization | | | | + + + + + | [facility] | [address] | [place], [place] | | | THERAPY | [address] | [address] | | + + + + + | [facility] | [address] | [place], [place] | | | THERAPY | [facility] | [address] | | + + + + + ADULT PULMONARY FUNCTION (12/28/2008 2:12 PM PDT) + + + | Narrative | Performed At | + + + | | | + + + + + | Procedure Note | + + | Gisele Strong - 01/29/2009 10:18 AM PDT | | | + + ADULT PULMONARY FUNCTION (12/28/2008 12:00 AM PDT) + + + | Narrative | Performed At | + + + | | | + + + + + | Procedure Note | + + | Other, Faculty - 01/07/2009 9:18 AM PDT | | | + + documented in this encounter Visit Diagnoses Not on filedocumented in this encounter"
--- OUTSIDE RECORDS SUMMARY | ~2020-05-04 | XMS | Encounter Summary ---
Demographics + + + | Address | [address] | | | [place] [address] | + + + | Home Phone [...] + | Gene Gee | ECON | [address] | | | | | [place], | | | | | [place] [address] | | + + + + + Care Team Providers + +------+ + | Care Reference Library Assistant Name | Role | Phone | + +------+ + | Antony Ribera MD | PCP | | + +------+ + Encounter Details +--------+ + + + + | Date | Type | Department | Care Team | Description | +--------+ + + + + | 09/21/ | Telephone | Pulmonary & | Lulu Lima, | | | 2008 | | Critical Care | | | | | | Medicine at | | | | | | [facility] | | | | | | [address] | | | | | | [address] Physician's | | | | | | Pavilion, 3rd Floor | | | | | | [place], [place] | | | | | | [address] | | | | | | [phone] | | | +--------+ + + + [...] this encounter Miscellaneous Notes Telephone Encounter - Lulu Lima Md - 09/21/2008 2:38 PM PDTCalled and spoke w/ pt 's pcp Dr. Ribera. He received my clinic notes regarding her recent visit and discovery of dv t/pe. I informed him that lovenox was started on 09/18/08. He will start her on coumadin and hook her into his coumadin clinic. He will also check a hypercoag w/u; while on lovenox it is still okay to check factor V leyden, prothrombin gene mutation, homocysteine, ACL, and p rot C/S; lupus anticoagulant cannot be checked on lovenox. He will send copies of her labs to us. LULU LIMA MD PULMONARY FACULTY [facility] Mailcode: [id number] [place] [address] documented in this encounter Plan of Treatment Not on filedocumented as of this encounter Visit Diagnoses Not on filedocumented in this encounter"
--- OUTSIDE RECORDS SUMMARY | ~2020-05-04 | XMS | Encounter Summary ---
Demographics + + + | Address | [address] | | | [place] [address] | + + + | Home Phone [...] + | Gene Gee | ECON | [address] | | | | | [place], | | | | | [place] [address] | | + + + + + Care Team Providers + +------+ + | Care Grill Attendant Name | Role | Phone | + +------+ + | Antony Ribera MD | PCP | | + +------+ + Reason for Visit + +--------+ + | Reason | Onset | Comments | | | Date | | + +--------+ + | Refill Request | 04/29/ | refill request for fluticasone prop 50 mcg spray | | | 2012 | | + +--------+ + Encounter Details +--------+--------+ + + + | Date | Type | Department | Care Team | Description | +--------+--------+ + + + | 04/29/ | Refill | Pulmonary & | Charbel Avila, | Refill Request | | 2012 | | Critical Care | [facility] | (refill request for | | | | Medicine at | [facility] | fluticasone prop 50 | | | | Physicians [place] | [address] | mcg spray ) | | | | [address] | [place], [place] | | | | | Loop Physician's | [address] | | | | | [place], 3rd Floor | [phone] | | | | | [place], [place] | | | | | | [address] | | | | | | [phone] | | | +--------+--------+ + + + [...] Telephone Encounter - Juan Manuel Mix - 04/29/2013 9:00 AM PDTFormatting of this note migh t be different from the original. Reason for Call: Chief Complaint Patient presents with Refill Request refill request for fluticasone prop 50 mcg spray Patient: Adriana Leosdouglas: Home Phone Work Phone Last Refill in [facility] was on 04/09/13 with Charbel Avila MD. No future appointments scheduled in Pulmonary Disease. Pharmacy Preferences: [facility] [address] [place] [address] [facility] [facility] [address] [place] [address] [id number] [place] [address] documented in this encoun ter Plan of Treatment Not on filedocumented as of this encounter Visit Diagnoses Not on filedocumented in this encounter"
--- OUTSIDE RECORDS SUMMARY | ~2020-05-04 | XMS | Encounter Summary ---
Demographics + + + | Address | [address] | | | [place] [address] | + + + | Home Phone [...] + | Gene Gee | ECON | [address] | | | | | [place], | | | | | [place] [address] | | + + + + + Care Team Providers + +------+ + | Care Film Rental Clerk Name | Role | Phone | + +------+ + | Antony Ribera MD | PCP | | + +------+ + Encounter Details +--------+ + + + + | Date | Type | Department | Care Team | Description | +--------+ + + + + | 11/14/ | Hospital | Cardiac | Sjh, Car Ecg Tech | | | 2017 | Encounter | Non-Invasive Testing | [address] | | | | | at [facility] | [facility] | | | | | [address] | [place] [address] | | | | | [address] | | | | | | [place], [facility] floor | | | | | | [place], [place] | | | | | | [address] | | | | | | [phone] | | | +--------+ + + + [...] | | 0 | | | | #[id number] | daily. | | | | | [...] + +--------+ + + + | CARDIAC EVENT | | 11/14/2016 | | Results for this | | MONITOR | | 12:00 AM | | procedure are in the | | | | PDT | | results section. | + +--------+ + + + documented in this encounter Results CARDIAC EVENT MONITOR (11/14/2016 12:00 AM PDT) + + + | Narrative | Performed At | + + + | | | + + + documented in this encounter Visit Diagnoses Not on filedocumented in this encounter"
--- OUTSIDE RECORDS SUMMARY | ~2020-05-04 | XMS | Encounter Summary ---
Demographics + + + | Address | [address] | | | [place] [address] | + + + | Home Phone [...] + | Gene Gee | ECON | [address] | | | | | [place], | | | | | [place] [address] | | + + + + + Care Team Providers + +------+ + | Care Manager Financial Reporting Name | Role | Phone | + +------+ + | Antony Ribera MD | PCP | | + +------+ + Encounter Details +--------+ + + + + | Date | Type | Department | Care Team | Description | +--------+ + + + + | 10/06/ | Telephone | Digestive Health | Diane Valdez, | | | 2008 | | Center at [facility] [address] | | | | | | [address] [place] | | | | | | for Health and | | | | | | Healing, [address] | | | | | | [place], [place] | | | | | | [address] | | | | | | [phone] | | | +--------+ + + + [...] Telephone Encounter - Allison Moore Rn - 10/06/2008 3:38 PM PDTPharmacist Steve notified that Adriana can have halflytely instead of golytely. elephone Encounter - Diane Valdez Md - 10/06/2008 3:17 PM PDTHeather Please call them for me. This is fine with me. elephone Encounter - Emiliana Parker - 10/06/2008 2:49 PM PDTRa velasco from [facility] in [place] called wondering if Dr Valdez would authorize Halflyt roseanne with flavor packs instead of the Golytely that was prescribed for Adriana because they hav e Halflytely in stock, and they would have to special order Golytely in order for the pt to pick it up tomorrow. Please call the pharmacy.Electronically signed by Emiliana Parker at 0 10/06/2008 2:49 PM PDTdocumented in this encounter Plan of Treatment Not on filedocumented as of this encounter Visit Diagnoses Not on filedocumented in this encounter"
--- OUTSIDE RECORDS SUMMARY | ~2020-05-04 | XMS | Encounter Summary ---
Demographics + + + | Address | [address] | | | [place] [address] | + + + | Home Phone [...] + | Gene Gee | ECON | [address] | | | | | [place], | | | | | [place] [address] | | + + + + + Care Team Providers + +------+ + | Care System Dispatcher Name | Role | Phone | + +------+ + | Alec Hill MD | PCP | | + +------+ + Encounter Details +--------+ + + + + | Date | Type | Department | Care Team | Description | +--------+ + + + + | 12/25/ | Documentati | Pulmonary & | Thalia Barnard, | | | 2013 | on | Critical Care | [facility] | | | | | Medicine at | [facility] | | | | | [facility] [place] | [address] | | | | | [address] | [address] [place], | | | | | Loop Physician's | [place] [address] | | | | | [place], 3rd Floor | [phone] | | | | | [place], [place] | | | | | | [address] | | | | | | [phone] | | | +--------+ + + + [...]
--- OUTSIDE RECORDS SUMMARY | ~2020-05-04 | XMS | Encounter Summary ---
Demographics + + + | Address | [address] | | | [place] [address] | + + + | Home Phone [...] + | Gene Gee | ECON | [address] | | | | | [place], | | | | | [place] [address] | | + + + + + Care Team Providers + +------+ + | Care Kitchen Food Server Name | Role | Phone | + +------+ + | Antony Ribera MD | PCP | | + +------+ + Encounter Details +--------+ + + + + | Date | Type | Department | Care Team | Description | +--------+ + + + + | 12/04/ | MyChart | Plastic and | Errol Gold | Infection on left | | 2012 | Encounter | Reconstructive | MD [address] | breast incision | | | | Surgery at [facility] [address] | | | | | [facility] | [address] [place], [place] | | | | | for Health and | [address] | | | | | [place] [address], | | | | | | [address] [facility] | | | | | | [place], [place] | | | | | | [address] | | | | | | [phone] | | | +--------+ + + + [...] Notes Telephone Encounter - Jenny Meyer - 12/04/2012 10:58 AM PDT Photos were reviewed with Dr. Jacobs. I returned pt call. Suggested that she avoid alcohol to the area, clean with soap and water , apply a thin film of abx ointment and keep clean and dry with a band aid or gauze. Her and her will continue to monitor, ok to snip suture if it resurfaces again. She will al so return call to clinic with further questions or concerns. Next Appointment in [facility] is on 01/20/13 at 1:45 pm with Errol Gold MD. elephone Encounter - Jenny Rodney - 12/04/2012 9:51 AM PDTI called and spoke to Mrs. Flynn and her . They will send photos to [email or web address], I informed pt that I will return her call once we rec eive the photos. document ed in this encounter Plan of Treatment Not on filedocumented as of this encounter Visit Diagnoses Not on filedocumented in this encounter"
--- OUTSIDE RECORDS SUMMARY | ~2020-05-04 | XMS | Encounter Summary ---
Demographics + + + | Address | [address] | | | [place] [address] | + + + | Home Phone [...] + | Gene Gee | ECON | [address] | | | | | [place], | | | | | [place] [address] | | + + + + + Care Team Providers + +------+ + | Care Phototypesetting Equipment Monitor Name | Role | Phone | + [...] [id number] | | | | | | [place], [place] | | | | | | [address] | | | | | | [phone] | | | +--------+ + + + [...]
--- OUTSIDE RECORDS SUMMARY | ~2020-05-04 | XMS | Encounter Summary ---
Demographics + + + | Address | [address] | | | [place] [address] | + + + | Home Phone [...] + | Gene Gee | ECON | [address] | | | | | [place], | | | | | [place] [address] | | + + + + + Care Team Providers + +------+ + | Care Encephalographer Name | Role | Phone | + +------+ + | Antony Ribera MD | PCP | | + +------+ + Reason for Visit + +--------+ + | Reason | Onset | Comments | | | Date | | + +--------+ + | Lab findings, | 11/22/ | | | teaching, guidance, | 2010 | | | and counseling | | | + +--------+ + | Breast cancer | 11/22/ | | | | 2010 | | + +--------+ + Encounter Details +--------+ + + + + | Date | Type | Department | Care Team | Description | +--------+ + + + + | 11/22/ | Telephone | Hematology/Medical | Stevan Velazquez, | Lab findings, | | 2010 | | Oncology at [facility] | [address] | teaching, guidance, | | | | [address] | [place], [place] | and counseling; | | | | Mailcode: [facility] | [address] | Breast cancer | | | | [facility] | [phone] | | | | | and Healing, | | | | | | [facility] | | | | | | Floor [place], [place] | | | | | | [address] | | | | | | [phone] | | | +--------+ + + + [...] this encounter Miscellaneous Notes Telephone Encounter - Stevan Velazquez MD - 11/22/2010 4:35 PM PDTI spoke with Adriana camargo the following CT results- CT chest without contrast. 11/17/2010. HISTORY: Evaluate [...] stability or resolution of the newer nodules. This chest CT scan was done for a new small pulmonary nodule noted on the Apr 2010 scan. We discuss that the result in particular the fact that the right middle lobe nodule that promp dean her follow up scan was resolved. There are other nodules that are stable and others that are new but small- 2-3 mm. We discuss that these nodules are most likely benign in nature and represent post-inflammat ory change. I discuss this case with Dr. Farr who is also not very impressed by these nodu les. Dr. Farr recommends imaging with an interval no shorted than 6-8 months. I discussed the above with Adriana. We discussed these nodules may not be visible all the time due to sect ioning techniques. We also discuss that they are most likely benign in nature. We can perhap s do a follow up scan in one year for example. In the end, Adriana decides that she will not p ursue further imaging out of concern for radiation exposure. I think this is a reasonable de cision which I will support. I also discuss with her that I spoke with Dr. Heart who Ok'd her to proceed with reconstr uction surgery. docume nted in this encounter Plan of Treatment Not on filedocumented as of this encounter Visit Diagnoses Not on filedocumented in this encounter"
--- OUTSIDE RECORDS SUMMARY | ~2020-05-04 | XMS | Encounter Summary ---
Demographics + + + | Address | [address] | | | [place] [address] | + + + | Home Phone [...] + | Gene Gee | ECON | [address] | | | | | [place], | | | | | [place] [address] | | + + + + + Care Team Providers + +------+ + | Care Zipper Machine Operator Name | Role | Phone | + +------+ + | Antony Ribera MD | PCP | | + +------+ + Encounter Details +--------+ + + + + | Date | Type | Department | Care Team | Description | +--------+ + + + + | 09/05/ | Clinical | [facility] | Chr[facility], Hem [address] | | | 2007 | Support | Clinics at S | [address] [place], | | | | Staff | [facility] [address] | [place] [address] Nurse6, | | | | | [facility] for | Hem [address] [facility] | | | | | Health and Healing, | [place] [address] | | | | | [address] | | | | | | [place], [place] | | | | | | [address] | | | | | | [phone] | | | +--------+ + + + [...] | Blood Pressure | 117/53 | 09/05/2007 1:15 PM | | | | | PST | | + + + + + | Pulse | 84 | 09/05/2007 1:15 PM | | | | | PST | | + + + + + | Temperature | 36.2 C (97.1 F) | 09/05/2007 1:15 PM | | | | | PST [...] 67.7 kg (149 lb 4 | 09/05/2007 1:15 PM | | | | oz) | PST | | + + + + + | Height | - | - | | + + + + + | Body Mass Index | 24.09 | 08/15/2007 9:59 AM | | | | | PST | | + + + + + documented in this encounter Progress Notes Luly Brooks Rn - 09/05/2007 2:01 PM PSTPAC accessed using sterile technique per protocal . + blood return noted. Labs drawn form port. Port flushed with 10 cc NS and 500 U Heparin p er protocal. Pt. Tolerated procedure well. Pt. Discharged. documented in this encounter Plan of Treatment Not on filedocumented as of this encounter Procedures + +--------+ + + + | Procedure Name | Priori | Date/Time | Associated Diagnosis | Comments | | | ty | | | | + +--------+ + + + | VITAMIN D, | Routin | 09/05/2007 | Breast Cancer | Results for this | | 25-HYDROXY, SERUM | e | 1:57 PM | (HCC) | procedure are in the | | | | PST | | results section. | + +--------+ + + + | COMPLETE METABOLIC | Routin | 09/05/2007 | Breast Cancer | Results for this | | MANOJ (NO CHG), | e | 1:45 PM | (HCC) | procedure are in the | | POC | | PST | | results section. | + +--------+ + + + | CBC CELLDYN ADULT | Routin | 09/05/2007 | Breast Cancer | Results for this | | (NO CHG), POC | e | 1:45 PM | (HCC) | procedure are in the | | | | PST | | results section. | + +--------+ + + + documented in this encounter Results VITAMIN D, 25-HYDROXY (09/05/2007 [...] [facility] | | | | | | [facility],[address] [place] [address] | | | | | | [place] [address] | | | | | | [phone] | | | | | Mathew [...] [facility] | [address] | [place], [place] | | | [facility] | | [address] | | + + + + + COMPLETE METABOLIC MANOJ (NO CHG), POC (09/05/2007 1:45 PM PST) + +---------+ + + + | Component | Value | Ref Range | Performed | Pathologist | | | | | At | Signature | + +---------+ + + + | SODIUM, POC | 141 | 136 - 145 | [facility] | | | | | mmol/L | OF CARE | | | | | | TESTS | | + +---------+ + + + | POTASSIUM, | 4.3 | 3.5 - 5.1 | [facility] | | | POC | | mmol/L | OF CARE | | | | | | TESTS | | + +---------+ + + + | TOTAL CO2, | 28 | 23 - 29 mmol/L | [facility] | | | POC | | | OF CARE | | | | | | TESTS | | + +---------+ + + + | CHLORIDE, | 107 | 98 - 107 mmol/L | [facility] | | | POC | | | OF CARE | | | | | | TESTS | | + +---------+ + + + | GLUCOSE, | 107 (A) | 66 - 99 mg/dL | [facility] | | | POC | | | OF CARE | | | | | | TESTS | | + +---------+ + + + | CALCIUM | 9.4 | 8.5 - 10.5 | [facility] | | | TOTAL, POC | | mmol/L | OF CARE | | | | | | TESTS | | + +---------+ + + + | BUN, POC | 11 | 6 - 20 mg/dL | [facility] | | | | | | OF CARE | | | | | | TESTS | | + +---------+ + + + | CREATININE, | 0.9 | 0.6 - 1.1 mg/dL | [facility] | | | POC | | | OF CARE | | | | | | TESTS | | + +---------+ + + + | ALK PHOS, | 71 | 42 - 98 U/L | [facility] | | | CMP POC | | | OF CARE | | | | | | TESTS | | + +---------+ + + + | ALT, CMP | 84 (A) | 13 - 48 U/L | [facility] | | | POC | | | OF CARE | | | | | | TESTS | | + +---------+ + + + | AST, CMP | 64 (A) | 15 - 41 U/L | [facility] [...] 3.6 | 3.5 - 4.7 g/dL | [facility] | | | CMP POC | | | OF CARE | | | | | | TESTS | | + +---------+ + + + | PROTEIN | 7.1 | 6.3 - 8 g/dL | [facility] [...] [facility] | [address] | [place], [place] | | | [place], POINT OF CARE | [address] | [address] | | | TESTS | | | | + + + + + | [facility] | [address] | [place], [place] | | | TESTS | [address] | [address] | | + + + + + CBC CELLDYN ADULT (NO CHG), POC (09/05/2007 1:45 PM PST) + + + + + + | Component | Value | Ref Range | Performed | Pathologist | | | | | At | Signature | + + + + + + | WBC POC | 6.3 | 3.4 - 10 K/mm^3 | [facility] | | | (ADULT) | | | OF CARE | | | | | | TESTS | | + + + + + + | LYMPH# POC | 1.3 (A) | 1.6 - 2.6 | [facility] | | | (ADULT) | | | OF CARE | | | | | | TESTS | | + + + + + + | LYMPH% POC | 20.7 (A) | 26 - 41 % | [...] + + + + | MID-RANGE% | 9.8 | 7 - 15 % | [facility] | | | POC (ADULT) | | | OF CARE | | | | | | TESTS | | + + + + + + | NEUTROPHIL# | 4.4 | 2.2 - 5.2 | [facility] | | | POC | | | OF CARE | | | (ADULT) | | | TESTS | | + + + + + + | NEUTROPHIL% | 69.5 (A) | 48 - 65 % | [facility] | | | POC | | | OF CARE | | | (ADULT) | | | TESTS | | + + + + + + | RBC POC | 4.08 | 3.8 - 5.2 | [facility] | | | (ADULT) | | M/mm^3 | OF CARE | | | | | | TESTS | | + + + + + + | HGB POC | 11.3 (A) | 12.2 - 15 g/dL | [...] + + + | MCV POC | 85.4 | 85 - 95 fL | [facility] | | | (ADULT) | | | OF CARE | | | | | | TESTS | | + + + + + + | MCH POC | 27.7 (A) | 29 - 32 pg | [facility] | | | (ADULT) | | | OF CARE | | | | | | TESTS | | + + + + + + | MCHC POC | 32.5 (A) | 32.6 - 33.9 | [facility] | | | (ADULT) | | g/dL | OF CARE | | | | | | TESTS | | + + + + + + | RDW POC | 19.4 (A) | 11.5 - 15 % | [facility] | | | (ADULT) | | | OF CARE | | | | | | TESTS | | + + + + + + | PLT POC | 304 | 150 - 420 | [facility] | | | (ADULT) | | K/mm^3 | OF CARE | | | | | | TESTS | | + + + + + + | MPV POC | 9.2 | 7.4 - 10.4 fL | [facility] | | | (ALL AGE) | | [...] [facility] | [address] | [place], [place] | | | [place] POINT OF CARE | [address] | [address] | | | TESTS | | | | + + + + + | [facility] | [address] | [place], [place] | | | TESTS | [address] | [address] | | + + + + + documented in this encounter Visit Diagnoses + + | Diagnosis | + + | Breast cancer (HCC) - Primary Malignant neoplasm of breast (female), unspecified site | + + documented in this encounter"
--- OUTSIDE RECORDS SUMMARY | ~2020-05-04 | XMS | Encounter Summary ---
Demographics + + + | Address | [address] | | | [place] [address] | + + + | Home Phone [...] + | Gene Gee | ECON | [address] | | | | | [place], | | | | | [place] [address] | | + + + + + Care Team Providers + +------+ + | Care Local Superintendent Name | Role | Phone | + +------+ + | Anotny Ribera MD | PCP | | + +------+ + Encounter Details +--------+ + + + + | Date | Type | Department | Care Team | Description | +--------+ + + + + | 07/26/ | Hospital | Radiology/Imaging | | | | 2009 | Encounter | Lab at [facility] [address] | | | | | | [facility] | | | | | | Health and Healing, | | | | | | [facility] | | | | | | [place], [place] | | | | | | [address] | | | | | | [phone] | | | +--------+ + + + [...] this encounter Procedure Notes Ligia, Faculty - 07/26/2009 11:59 PM PST documented in this encounter Plan of Treatment Not on filedocumented as of this encounter Procedures + +--------+ + + + | Procedure Name | Priori | Date/Time | Associated Diagnosis | Comments | | | ty | | | | + +--------+ + + + | X-RAY SHOULDER 3+ | Routin | 07/26/2009 | Shoulder pain | Results for this | | VIEWS RIGHT | e | 2:54 PM | | procedure are in the | | | | PST | | results section. | + +--------+ + + + documented in this encounter Results X-RAY SHOULDER 3+ VIEWS [...] | | | | | | Author: ENDA BRO, | | | | | | MDReviewer: EDNA BRO, | | | | | | MD STATUS FINAL / | | | | [...] | | + +---------+ + + | [facility] DEPARTMENT OF | | | | | RADIOLOGY | | | | + +---------+ + + documented in this encounter Visit Diagnoses + + | Diagnosis | + + | Shoulder pain Pain in joint, shoulder region | + + documented in this encounter"
--- OUTSIDE RECORDS SUMMARY | ~2020-05-04 | XMS | Encounter Summary ---
Demographics + + + | Address | [address] | | | [place] [address] | + + + | Home Phone [...] + | Gene Gee | ECON | [address] | | | | | [place], | | | | | [place] [address] | | + + + + + Care Team Providers + +------+ + | Care Print Color Operator Name | Role | Phone | + +------+ + | Antony Ribera MD | PCP | | + +------+ + Encounter Details +--------+ + + + + | Date | Type | Department | Care Team | Description | +--------+ + + + + | 05/18/ | MyChart | John [facility]olph | Tapan Horowitz MD | ultrasound | | 2010 | Encounter | [facility] | [address] | | | | | Center at Phys[facility] | [facility], | | | | | [address] | [place] [address] | | | | | [address] | [phone] | | | | | Physician's | | | | | | [place], 1st floor | | | | | | [place], [place] | | | | | | [address] | | | | | | [phone] | | | +--------+ + + + [...]
--- OUTSIDE RECORDS SUMMARY | ~2020-05-04 | XMS | Encounter Summary ---
Demographics + + + | Address | [address] | | | [place] [address] | + + + | Home Phone [...] + | Gene Gee | ECON | [address] | | | | | [place], | | | | | [place] [address] | | + + + + + Care Team Providers + +------+ + | Care Health Insurance Agent Name | Role | Phone | [...] + | Closed | | Radiology | Procedures | Leonard, | Rad General | | | | | X-RAY | Salma Wilkes MD | [address] | | | | | [facility] | [address] | | | | | [address] | [address] | [place] [facility] | | | | | | [facility] | [facility] and | | | | | | [place], [place] | Healing, | | | | | | [address] | [address], | | | | | | Phone: | 3rd Floor | | | | | | [phone] | [place], [place] | | | | | | Fax: | [address] | | | | | | [phone] | Phone: | | | | | | | [phone] | | | | | | | Fax: | | | | | | | [phone] | +--------+--------+ + + + + Reason for Visit + + + | Reason | Comments | + + + | Low Abdominal Pain | | + + + AUTH/CERT +--------+--------+ + + + + | Status | Reason | Specialty | Diagnoses / | Referred By | Referred To | | | | | Procedures | Contact | Contact | +--------+--------+ + + + + | Closed | | Adult Acute | | | [facility] | | | | Care | | | Trauma/Egs | | | | | | | [address] | | | | | | | [address] | | | | | | | [id number] | | | | | | | [facility] | | | | | | | [facility] | | | | | | | [place], [place] | | | | | | | [address] | | | | | | | Phone: | | | | | | | [phone] | | | | | | | Fax: | | | | | | | [phone] | +--------+--------+ + + + + Encounter Details +--------+ + + + + | Date | Type | Department | Care Team | Description | +--------+ + + + + | 10/31/ | Hospital | [facility] [address] | Jorden Mejia MD | | | 2009 - | Encounter | [address] | [address] | | | | | [id number] [facility] | [address] | | | 11/04/ | | [facility] [place], | [place], [place] | | | 2009 | | [place] [address] | [address] | | | | | [phone] | [phone] | | | | | | | | | | | | Dominick Caban, | | | | | | [address] | | | | | | [facility] | | | | | | [place], [place] | | | | | | [address] | | | | | | [phone] | | | | | | | | | | | | Andry Reyes MD | | | | | | [address] [facility] | | | | | | [facility], | | | | | | [place] [address] | | | | | | [phone] | | | | | | | | | | | | Katie Owens MD | | | | | | [address] | | | | | | [facility], | | | | | | [place] [address] | | | | | | [phone] | | | | | | | [...] + + + | Blood Pressure | 148/82 | 11/04/2009 9:30 AM | | | | | PDT | | + + + + + | Pulse | 65 | 11/04/2009 9:30 AM | | | | | PDT | | + + + + + | Temperature | 36.5 C (97.7 F) | 11/04/2009 8:45 AM | | | | | PDT | | + + + + + | Respiratory Rate | 16 | 11/04/2009 8:45 AM | | | | | PDT | | + + + + + | Oxygen Saturation | 100% | 11/04/2009 8:45 AM | | | | | PDT | | + + + + + | Inhaled Oxygen | - | - | | | Concentration | | | | + + + + + | Weight | 64.4 kg (142 lb) | 10/31/2009 1:22 PM | | | | | PDT | | + + + + + | Height | - | - | | + + + + + | Body Mass Index | 22.92 | 09/30/2009 10:44 AM | | | | | PDT | | + + + + + documented in this encounter Discharge Summaries Salma Cervantes MD - 11/04/2009 8:37 AM PDT INPATIENT PHYSICIAN DISCHARGE SUMMARY Author: SALMA CERVANTES MD Attending Physician: Katie Owens MD PCP: Latosha Ribera MD Admission Date: 10/31/2009 Discharge Date: 11/04/2009 Diagnoses Prinicipal Final Diagnosis 1. 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 Flynn is a 64 yo woman who presented with signs of bowel obstruction vs. severe constip ation. She was treated with an aggressive bowel regimen and began passing bowel movements a nd flatus. She had resolution of her abdominal pain, nausea, and distention. Due to her hi story of colectomy and previous suspected stricture, the patient underwent barium enema whic h demonstrated no stricture. The patient was discharged home in good condition. Medications: Current Discharge Medication List START taking these medications polyethylene glycol 17 gram/dose Oral Powder Take 17 g by mouth once daily. Qty: 119 g Refills: 0 CONTINUE these medications which have NOT CHANGED anastrozole (ARIMIDEX) 1 mg Oral Tablet Take 1 Tab by mouth once daily. Qty: 90 Tab Refills: 2 atenolol 25 mg Oral Tablet Take 25 mg by mouth once daily. budesonide (PULMICORT FLEXHALER) 180 mcg/Inhalation Inhalation Aerosol Powdr Breath Activa dean Inhale 1 Puff two times daily. 2 puffs in the am and 1 puff in the pm Qty: 90 day supply Refills: 4 calcium citrate-vitamin D (CITRACAL + D) 315-200 mg-unit Oral Tablet 2 tabs twice a day Docusate Sodium (STOOL SOFTENER) 100 mg Oral Capsule 1 pill by mouth 2 X per day DOFETILIDE 500 mcg Oral Capsule Take 1 Cap by mouth two times daily. Qty: 60 Cap Refills: 6 Comments: Dofetilide Prescriber number WCP [id number] Associated Diagnoses: Other specified cardiac dysrhythmias fluticasone (FLONASE) 50 mcg/Actuation Nasal [place], Suspension Instill 2 Sprays into each nostril once daily. Qty: 90 day supply' Refills: 4 Glucosamine 1,000 mg Oral Tablet one daily MULTIVITAMIN OR one daily potassium chloride SR 20 mEq Oral Tab Sust.Rel. Particle/Crystal Take 1 Tab by mouth once daily. Qty: 90 Refills: 4 rabeprazole (ACIPHEX) 20 mg Oral Tablet, Delayed Release (E.C.) Take 20 mg by mouth once daily. Twice daily tiotropium (SPIRIVA WITH HANDIHALER) 18 mcg Inhalation Capsule, w/Inhalation Device Inhale 1 Cap once daily. Qty: 90 day supply Refills: 4 Vitamin A-Vitamin C-Vit E-Min (ANTIOXIDANT FORMULA) Oral Capsule take 1 capsule by oral route once daily with food VITAMIN D ORAL 2000 IU daily zoledronic acid (RECLAST) 5 mg/100 mL Intravenous Solution Inject into the vein (IV). Yearly- rcvd 01/19/09 Diet Regular Activity Restrictions: none Activity level at discharge Up unrestricted Destination: Destination: Home Condition on Discharge Good Discharge Follow Up Provider and Clinic: [facility] - Dr. Noriega Appointment: Please call for appointment Provider and Clinic: [facility] Clinic - [phone] Appointment: Please call as needed with questions Vitals on discharge: Wt 64.411 kg (142 lbs)( < 3 %ile), BP 137/68, Pulse 60, Temperature 36 .8 C (98.2 F), RR 18, SpO2 97%. Outstanding labs/studies: None Discharging Physician: ASLMA CERVANTES MD Attending Physician: Katie Owens MD documented in this en counter Discharge Instructions Instructions Andie Smart, SAM - 11/04/2009INPATIENT NURSE ORDER FOR DISCHARGE AND INTERDISCIPLINARY INSTRUCTIONS DISCHARGE DATE: 11/04/2009 PATIENT EDUCATION: Patient given the following printed education materials Review with patient/family: Understanding of disease/injury/surgical repair Yes Signs/symptoms that they should report Yes Understanding of medications and side effects Yes Activity and diet instructions Yes Follow-up appointments Yes Any concerns/fears Yes Smoking Cessation Counseling/Information was given on admission. Additional Instructions: (ex: daily weights, wound care, tube feeding, trach care, CBG angel toring etc.) 1. Bowel care Personal Effects/Medications: Sent home with patient Discharged Via: Ambulatory Mode of Transportation: Car Accompanied by: Family/Responsible Libertarian Discharge Nurse: Rosalinda Bustamante Date: 11/04/2009 Discharge Time: 1030 AM documented in this encounter Medications at [...] documented as of this encounter Progress Notes Lindsay Wharton - 11/03/2009 12:37 PM PDTPossible discharge tomorrow. Will continue to devon MOE resolving. oBilly flores MD - 11/03/2009 6:37 AM PDT . EGS INPATIENT PROGRESS NOTE Hospital Day:3 Author; SALMA CERVANTES MD Attending Physician: Katie Owens MD Interval Hx: No complaints, tolerating diet and having BMs. Current Inpatient Medications Medication Dose Route Frequency acetaminophen (aka TYLENOL) tablet 650 mg 650 mg Oral Q4H PRN anastrozole (aka ARIMIDEX) tablet 1 mg 1 mg Oral DAILY atenolol (aka TENORMIN) tablet 25 mg 25 mg Oral BID calcium citrate (aka CITRACAL) tablet 950 mg 950 mg Oral BID cholecalciferol (aka VITAMIN D-3) tablet 400 Units 400 Units Oral BID dofetilide (aka TIKOSYN) capsule 500 mcg 500 mcg Oral BID fluticasone (aka FLONASE) 50 mcg/Actuation nasal spray 2 [place] 2 [place] both nostrils D AILY fluticasone (aka FLOVENT) 110 mcg/Actuation inhaler 1 Puff 1 Puff Inhalation BID HYDROmorphone (aka DILAUDID) injection 0.5-1 mg 0.5-1 mg Intravenous Q4H PRN lansoprazole (aka PREVACID) capsule 30 mg 30 mg Oral DAILY multivitamin 1 Cap 1 Cap Oral DAILY polyethylene glycol (aka MIRALAX) powder 17 g 17 g Oral DAILY potassium chloride SR (aka K-DUR) tablet 20 mEq 20 mEq Oral DAILY tiotropium (aka SPIRIVA) inhalation 18 mcg 18 mcg Inhalation DAILY Physical Exam: Last Vitals: BP 141/81 | Pulse 57 | Temp 36.7 C (98.1 F) | Resp 16 | Wt 64.411 kg (142 lb) | SpO2 98% O2 Delivery Device: None (room air) (11/03/09 0441) 24 Hour Vital Min/Max: Pulse Av.3 Min: 57 Max: 65 Temp Av.6 C (97.9 F) Min: 36.4 C (97.5 F) Max: 36.8 C (98.2 F) Resp Av Min: 16 Max: 18 SpO2 Av.5 % Min: 98 % Max: 100 % Intake/Output Summary (Last 24 hours) at 11/03/09 0637 Last data filed at 11/03/09 0400 Gross per 24 hour Intake 1235 ml Output 0 ml Net 1235 ml General: awake, alert, NAD Respiratory: CTAB Cardiovascular: RRR Gastrointestinal: Abd soft, NTND. Musculoskeletal: extremities wwp, no edema CBC with diff last 72 hours (or 3 results) Recent Labs Basename 10/31/09 1518 WBC 6.2 HB 14.6 HCT 42.7 PLT 146* NEUTROPERC 60 BANDPCT -- LYMPHPERC 30 MONOPERC 9* BASOPERC 1 EOSPERC 1 Chemistries: Last 72 Hours (or 3 results): Recent Labs Basename 11/02/09 0920 11/01/09 0546 10/31/09 1518 NA 141 141 141 K 4.0 3.8 4.9 CL 105 111* 105 BICARB 26 20* 27 BUN 4* 9 12 CR 0.85 0.72 0.82 GLU 110* 60 84 CA 9.7 8.5* 9.4 MG 2.2 1.9 -- PO4 -- -- -- Assessment and Plan: 64 y.o. Woman with SBO vs constipation, possible anastomotic stricture - barium enema today to eval for stricture - Diet: regular - Pain control: continue current regimen - Prophylaxis: lansoprazole - Dispo: anticipate tomorrow SALMA CERVANTES MD [facility] [address] [place] [address] STAFF: I saw and examined her. Clinically well. Home after BE with follow-up as dictated by study findings. 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 No data recorded. Pulse Av.3 Min: 59 Max: 79 Temp Av.6 C (97.9 F) Min: 36.4 C (97.5 F) Max: 36.8 C (98.2 F) Resp Av.7 Min: 16 Max: 18 SpO2 Av.7 % Min: 97 % Max: 100 % Intake/Output Summary (Last 24 hours) at 11/02/09 0701 Last data filed at 11/02/09 0422 Gross per 24 hour Intake 710 ml Output 1050 ml Net -340 ml General Appearance: well Respiratory: CTAB Cardiovascular: RRR Abdomen: soft, minimally tender - improved since yesterday Extremities: warm Neurologic: Awake, alert, orientedx3 CBC with diff last 72 hours (or 3 results) Recent Labs Basename 10/31/09 1518 WBC 6.2 HB 14.6 HCT 42.7 PLT 146* NEUTROPERC 60 BANDPCT -- LYMPHPERC 30 MONOPERC 9* BASOPERC 1 EOSPERC 1 Chemistries: Last 72 Hours (or 3 results): Recent Labs Basename 11/01/09 0546 10/31/09 1518 NA 141 141 K 3.8 4.9 CL 111* 105 BICARB 20* 27 BUN 9 12 CR 0.72 0.82 GLU 60 84 CA 8.5* 9.4 MG 1.9 -- PO4 -- -- Liver Tests: Last 72 hours (or 3 results) Recent Labs Basename 10/31/09 1518 AST 61* ALT 24 TBILI 1.5* AP 64 ALB 3.7 TP 6.5 Assessment and Plan: Adriana Flynn is a 64 y.o. female who admitted for possible partial SBO (2/[address] ricture) vs constipation -clinically better -having bms -will keep today with nausea this am -keep on clears, low residue diet when improved -wean opiates -tylenol for headaches -anticipate dc in 1-2 days if better -if worsens might need surgery but pt warned of high risk of complications -pt still strongly prefers no further imaging or surgeries at this time even though the tea m recommended a SBFT (+/- Ba Enema) yesterday miralax per team Dr Ana Franz M.B.,B.S. Joinery Setter Out Department of Surgery [facility] [place] [address] [phone] Salma Spence MD - 11/01 6:45 AM PDT EGS INPATIENT PROGRESS NOTE Hospital Day:1 Author; SALMA CERVANTES MD Attending Physician: Andry Reyes MD;Katie Baldwin * Interval Hx: No issues overnight, drank mag citrate without N/V. Pt states she had BM last night, no flatus or BM this AM. Pt refusing any radiation including CT and X-rays unless i t is "life and " Current Inpatient Medications Medication Dose Route Frequency acetaminophen (aka TYLENOL) tablet 650 mg 650 mg Oral Q4H PRN anastrozole (aka ARIMIDEX) tablet 1 mg 1 mg Oral DAILY atenolol (aka TENORMIN) tablet 25 mg 25 mg Oral DAILY calcium-vitamin D (aka OS-NBA 500 + D) 500 mg(1,250mg) -200 unit 1 Tab 1 Tab Oral LETHA Y dofetilide (aka TIKOSYN) capsule 500 mcg 500 mcg Oral BID fluticasone (aka FLONASE) 50 mcg/Actuation nasal spray 2 [place] 2 [place] both nostrils D AILY fluticasone (aka FLOVENT) 110 mcg/Actuation inhaler 1 Puff 1 Puff Inhalation BID HYDROmorphone (aka DILAUDID) injection 0.5-1 mg 0.5-1 mg Intravenous Q2H PRN lactated ringers IV Intravenous CONTINUOUS lansoprazole (aka PREVACID) capsule 30 mg 30 mg Oral DAILY multivitamin 1 Cap 1 Cap Oral DAILY potassium chloride SR (aka K-DUR) tablet 20 mEq 20 mEq Oral DAILY tiotropium (aka SPIRIVA) inhalation 18 mcg 18 mcg Inhalation DAILY Physical Exam: Last Vitals: BP 141/85 | Pulse 56 | Temp 36.5 C (97.7 F) | Resp 18 | Wt 64.411 kg (142 lb) | SpO2 100% O2 Delivery Device: None (room air) (11/01/09 0556) 24 Hour Vital Min/Max: Pulse Av.6 Min: 56 Max: 99 Temp Av.7 C (98 F) Min: 36.5 C (97.7 F) Max: 36.8 C (98.3 F) Resp Av.6 Min: 12 Max: 18 SpO2 Av.9 % Min: 99 % Max: 100 % Intake/Output Summary (Last 24 hours) at 11/01/09 0645 Last data filed at 11/01/09 0500 Gross per 24 hour Intake 1600 ml Output 500 ml Net 1100 ml General: awake, alert, NAD Respiratory: CTAB Cardiovascular: RRR Gastrointestinal: Abd soft, TTP RLQ, nondistended. Musculoskeletal: extremities wwp, no edema CBC with diff last 72 hours (or 3 results) Recent Labs Basename 10/31/09 1518 WBC 6.2 HB 14.6 HCT 42.7 PLT 146* NEUTROPERC 60 BANDPCT -- LYMPHPERC 30 MONOPERC 9* BASOPERC 1 EOSPERC 1 Chemistries: Last 72 Hours (or 3 results): Recent Labs Basename 11/01/09 0546 10/31/09 1518 NA 141 141 K 3.8 4.9 CL 111* 105 BICARB 20* 27 BUN 9 12 CR 0.72 0.82 GLU 60 84 CA 8.5* 9.4 MG 1.9 -- PO4 -- -- Assessment and Plan: 64 y.o. Woman with SBO vs. constipation - small bowel follow through recommended, pt refused - Diet: sips - Pain control: IV Dilaudid - Propylaxis: lansoprazole - Dispo: pending resolution of obstruction SALMA CERVANTES MD [facility] [address] [facility] [address] documented in this enco unter H&P Notes Andry Reyes MD - 10/31/2009 7:13 PM PDTFormatting of this note might be different from t he original. INPATIENT ADMISSION HISTORY AND PHYSICAL Author: ANDRY ROCHE MD Attending Physician: Dominick Caban MD HPI: Adriana Flynn is a 64yo woman with h/o multiple liver cysts, s/p cyst removal, cholecyst ecomy and appendectomy, h/o diverticulitis with sigmoid colectomy 10yrs ago in [place]. Pt report hx of frequent SBO every 1-1.5 years. Most recent hospitalization for SBO in 2007 . Pt reports she woke up on Sunday with c/o RLQ burning pain, no emesis, some mild gilberto sea, reports this pain felt like previous SBOs. She denies constipation or recent diarrhea. She has had two stools over the course of past 2 days with BM this morning that was formed but "thick" She reports her stomach is extremely sensitive and she has had episodes of dona rrhea associated with the use of PPIs. She states her normal tendency is toward constipation and that she uses two stool softeners daily. N She placed herself on clear liquid diet wh en pain started and feels she has done a good job with hydration, also taking boost at home. Denies fever. Pain worse when supine. No complaint of urine frequency or burning. Pt r efused CT by ED, feels she is not that sick and does not wish to have another CT given her l arge number of previous scans. Of note pt was scheduled to see Dr. Noriega from GI here at [facility] for EGD and motility study. Past Medical History Diagnosis Date Sjogrens syndrome [...] [facility] Heart ablation 12/16/2004,09/21/2005 Dr. Fuentes, [facility] ROS: negative with the exception of the above. (Not in a hospital admission) Allergies Allergen Reactions Sulfa (Sulfonamides) Swelling-Facial Ciprofloxacin Hives and Rash Triamterene-hydrochlorothiazid BREAST LUMPS Celebrex (Celecoxib) Diarrhea and Cough Albuterol Tachycardia Flecainide Acetate Rash Intestinal discomfort Propafenone unknown Crestor (Rosuvastatin Calcium) muscle/Jt Pain Zetia (Ezetimibe) Nausea/Vomiting Kapidex (Dexlansoprazole) Tape Adherent Rash History Social History Marital Status: Spouse Name: N/A Number of Children: N/A Years of Education: N/A Occupational History retired 2000 Social History Main Topics Tobacco Use: Quit parents smoked Alcohol Use: No Drug Use: No Sexually Active: Not on file Other Topics Concern Not on file Social History Narrative No narrative on file Family History Problem Relation Diabetes Heart Additional Family History Mother osteoporosis/hip fracture Physical Exam: BP 175/85 | Pulse 68 | Temp 36.8 C (98.3 F) | Resp 16 | Wt 64.411 kg (142 lb) | SpO2 10 0% Pulse Av.7 Min: 68 Max: 75 Temp Av.8 C (98.3 F) Min: 36.8 C (98.3 F) Max: 36.8 C (98.3 F) Resp Av.7 Min: 12 Max: 16 SpO2 Av.7 % Min: 99 % Max: 100 % General Appearance: healthy appearing woman of stated age Eyes: anicteric Neck: supple Respiratory: CTAB Cardiovascular: RRR Gastrointestinal: soft, non-distended, TTP RLQ, no rebound, no guarding, no peritoneal sign s, scars from midline and chevron incision Lymphatic: no edema Musculoskeletal: grossly normal Skin: no rash Neurologic: non-focal Data: Lab Results Component Value Date WBC 6.2 10/31/2009 RBC 4.73 10/31/2009 HB 14.6 10/31/2009 HCT 42.7 10/31/2009 MCV 90.3 10/31/2009 MCHC 34.1 10/31/2009 RDW 13.7 10/31/2009 PLT 146 10/31/2009 NEUTROPERC 60 10/31/2009 LYMPHPERC 30 10/31/2009 MONOPERC 9 10/31/2009 EOSPERC 1 10/31/2009 BASOPERC 1 10/31/2009 NEUTROPHILCO 3.7 10/31/2009 MONOCYTECO 0.6 10/31/2009 EOSCO 0.1 10/31/2009 BASOPHILCO 0.1 10/31/2009 CBCCOMMENTS Final automated differential report. Smear reviewed. 07/01/2004 Lab Results Component Value Date NA 141 10/31/2009 K 4.9 10/31/2009 CL 105 10/31/2009 BICARB 27 10/31/2009 BUN 12 10/31/2009 CR 0.82 10/31/2009 GLU 84 10/31/2009 CA 9.4 10/31/2009 AST 61 10/31/2009 ALT 24 10/31/2009 AP 64 10/31/2009 TBILI 1.5 10/31/2009 TP 6.5 10/31/2009 ALB 3.7 10/31/2009 Assessment and Plan: possible pSBO vs constipation. No nausea at present, no emesis with s xs for past three days. It is reasonable to hold off on CT at this time given pt's conditio n is quite stable. -admit to EGS -will let Dr. Noriega from GI know pt is in house -sips of clears -mag citrate for bowel regimen -pain control -watch clinical exam, if nausea or emesis will place NGT. Andry Roche MD Surgery Resident STAFF: I personally interviewed the patient, performed the pertinent parts of the physical examina tion and personally formulated the plan with the resident. She is much improved this am and is passing some flatus. Good idea to close the loop with GI to see if they would like us to do anything to assist in her planned workup for this week. I agree with the residents docume ntation and have documented any additions or exceptions. documented in this encou nter Procedure Notes Other, Faculty - 03/02/2010 10:14 AM PDTAssociated Order(s): RADIOLOGY; RADIOLOGY ther, Faculty - 010 6:28 PM PDTAssociated Order(s): ORDERS OTHER; ORDERS OTHER documented in this encounter ED Notes Rajat Sotomayor RN - 10/31/2009 7:10 PM PDTSBAR from [facility].Electronically sign ed by Rajat Sotomayor RN at 10/31/2009 7:10 PM PDTBing Valerio MD - 10/31/2009 5: 47 PM PDT SBAR 64 yo female with h/o multiple liver cysts, s/p cyst removal, cholecystecomy and appendecto my, h/o diverticulitis --> sigmoidectomy with frequent SBO Pt c/o RLQ burning pain x 2 days. + nausea. Hx SBO every 1 to 1.5 years. No constipat ion, or diarrhea.Nl urination Placed self on clear liquid diet when pain started so not a lot of UOP. Denies fever. Pain worse when supine. She has RLQ mass clinical suspicion high SBO, but holding CT scan as pt no that sick and bhakta s had frequent CTs, which is ordered. She is having BM. EGS is seeing the patient. Pendin g EGS consult. No vomiting, no NGT. Abdominal XR show shows no air fluid levels. Rx morphine, ondansetron UA, CBC, lipase, CMP unremarkable. EGS consult pending possible scan possible admission. SBAR from Dr. Noel I assumed care of this patient at 1800 I reviewed all available chance a and then went in and re-evaluated the patient. I agree with the work up and assessment do ne up to this point. Seen by myself, and shortly thereafter by the cosigning attending oz carmona, who was involved in all pertinent aspects of this patient's examination, care and med ical decision-making. Results for orders placed during the hospital encounter of 10/31/09 URINE, MICROSCOPIC EXAM Component Value Range SQUAMOUS EPITHELIAL Few (*) (/hpf) NON-SQUAMOUS EPITH None (/hpf) RED CELLS None 0 - 3 (/hpf) WHITE CELLS None 0 - 5 (/hpf) BACTERIA None (/hpf) MUCOUS None (/hpf) HYALINE CASTS None 0 - 1 (/lpf) GRANULAR CASTS None (/lpf) CELLULAR CASTS None (/lpf) AMORPHOUS CRYSTALS None (/hpf) CALCIUM OXALATE ALLISON None (/hpf) URIC ACID CRYSTALS None (/hpf) TRIPLE P04 CRYSTALS None (/hpf) YEAST (LAB) None (/hpf) TRICHOMONAS None (/hpf) UA DIPSTICK ONLY W/O MICRO, POC Component Value Range COLOR (UA DIP), POC yellow APPEARANCE (UA DIP), POC clear LEUKOCYTES (UA DIP), POC neg > Negative NITRITES (UA DIP), POC neg > Negative UROBILINOGEN (UA DIP), POC 0.2 > 0.2 (OMAR UNITS) PROTEIN (UA DIP), POC neg > Negative to Trace (mg/dL) PH (UA DIP), POC 6.0 5 - 8 BLOOD (UA DIP), POC trace lysed > Negative SPECIFIC GRAVITY (UA DIP), POC 1.015 1.005 - 1.03 KETONES (UA DIP), POC trace > Negative (mg/dL) BILIRUBIN (UA DIP), POC neg > Negative GLUCOSE (UA DIP), POC neg > Negative to Trace (mg/dL) CBC, WITH DIFFERENTIAL Component Value Range WHITE CELL COUNT 6.2 4.4 - 11.0 (K/cu mm) RED CELL COUNT 4.73 4.00 - 5.20 (M/cu mm) HEMOGLOBIN 14.6 12.0 - 16.0 (g/dL) HEMATOCRIT 42.7 36.0 - 46.0 (%) MCV 90.3 80.0 - 96.0 (fL) MCHC 34.1 33.4 - 35.5 (g/dL) RDW 13.7 11.5 - 15.0 (%) PLATELET COUNT 146 (*) 150 - 400 (K/cu mm) COMPLETE METABOLIC SET (NA,K,CL,CO2,BUN,CREAT,GLUC,CA,AST,ALT,BILI TOTAL,ALK PHOS,ALB,PROT TOTAL) Component Value Range GLUCOSE, PLASMA (LAB) 84 60 - 99 (mg/dL) BUN 12 6 - 20 (mg/dL) CREATININE,PLASMA 0.82 0.60 - 1.10 (mg/dL) TOTAL PROTEIN 6.5 6.1 - 7.9 (g/dL) ALBUMIN (LAB) 3.7 3.5 - 4.7 (g/dL) CALCIUM (LAB) 9.4 8.6 - 10.2 (mg/dL) BILIRUBIN TOTAL 1.5 (*) 0.3 - 1.2 (mg/dL) ALK PHOS 64 53 - 141 (U/L) AST(SGOT) 61 (*) 15 - 41 (U/L) SODIUM (LAB) 141 134 - 143 (mmol/L) POTASSIUM (LAB) 4.9 3.4 - 5.0 (mmol/L) CHLORIDE 105 97 - 108 (mmol/L) TOTAL CO2 27 23 - 31 (mmol/L) ALT (SGPT) 24 13 - 48 (U/L) EGFR - AUSTRIAN > 60 > 60 (mL/min) EGFR NON -AUSTRIAN > 60 > 60 (mL/min) AST CMNT MOD HEMO POTASSIUM CMNT MOD HEMO BILI T CMNT MOD HEMO LIPASE, PLASMA Component Value Range LIPASE (LAB) 18 (*) 22 - 51 (U/L) DIFFERENTIAL Component Value Range NEUTROPHIL % 60 50 - 70 (%) LYMPHOCYTE % 30 18 - 42 (%) MONOCYTE % 9 (*) 2 - 8 (%) EOS % 1 1 - 3 (%) BASO % 1 < 3 (%) NEUTROPHIL # 3.7 1.8 - 7.7 (K/cu mm) LYMPHOCYTE # 1.9 1.0 - 4.8 (K/cu mm) MONOCYTE # 0.6 < 0.9 (K/cu mm) EOS # 0.1 < 0.6 (K/cu mm) BASO # 0.1 < 0.3 EGS ageed to admission without CT scan. Patient remained comfortable with nausea and abd pain controlled. BING VALERIO MD 10:39 PM RESIDENT PORTION OF NOTE Re-evaluation patient still comfortable, no vomiting, no complaints. Impression: 1. SBO Plan:Admit to EGS Alize Fernandes MD - 10/31/2009 3:08 PM PDTFormatting of this note might be different from e original. 3:08 PM, ALIZE NOEL MD, Resident Note CC RLQ abd pain HPI Adriana Flynn is a 64 y.o. female with hx of multiple abd surg s/p cholecystectomy, appende ctomy, ectopic , liver cyst removal in 2005 etc and SBO x6, last one was a year ago is here for RLQ pain and nausea. 2 days ago, the sharp pain at RLQ woke her up, nausidated but no vomiting. The pain radiate to adwoa flank. The pain comes and goes, currently torelable . No fever/chills. No CP/SOB. Last BM was this am, normal. RN note Pt c/o RLQ burning pain x 2 days. + nausea. Hx SBO every 1 to 1.5 years. No constipat ion, or diarrhea. Placed self on clear liquid diet when pain started so not a lot of UOP. Denies fever. Pain worse when supine. PCP Latosha Ribera MD ROS The remainder of a 10-point ROS is negative except as noted in the HPI Past Medical Hx: Past Medical History Diagnosis Date Sjogrens syndrome [...] Breast cancer 02/2007 s/p chemo with taxotere/cytoxan Family History Problem Relation Diabetes Heart Additional Family History Mother osteoporosis/hip fracture No current facility-administered medications on file prior to encounter. Current outpatient prescriptions ordered prior to encounter Medication Sig Dispense Refill anastrozole (ARIMIDEX) 1 mg Oral Tablet Take 1 Tab by mouth once daily. 90 Tab 2 atenolol 25 mg Oral Tablet Take [...] Cap by mouth two times daily. 60 Cap 6 fluticasone (FLONASE) 50 mcg/Actuation Nasal [place], Suspension Instill 2 Sprays into ea ch nostril once daily. 90 day supply' 4 Glucosamine 1,000 mg Oral Tablet one daily MULTIVITAMIN OR one daily potassium chloride SR 20 mEq Oral Tab Sust.Rel. Particle/Crystal Take 1 Tab by mouth on ce daily. 4 rabeprazole (ACIPHEX) 20 mg Oral Tablet, Delayed Release (E.C.) Take 20 mg by mouth onc e daily. Twice daily tiotropium (SPIRIVA WITH HANDIHALER) 18 [...] muscle/Jt Pain Zetia (Ezetimibe) Nausea/Vomiting Kapidex (Dexlansoprazole) Tape Adherent Rash History Social History Marital Status: Spouse Name: N/A Number of Children: N/A Years of Education: N/A Occupational History retired 2000 Social History Main Topics Tobacco Use: Quit parents smoked Alcohol Use: No Drug Use: No Sexually Active: Not on file Other Topics Concern Not on file Social History Narrative No narrative on file I have reviewed the medications, allergies, past medical history, social history, and famil y history. BP 137/73 | Pulse 69 | Temp 36.8 C | Resp 12 | Wt 64.411 kg (142 lb) | SpO2 99% GCS: 15 General: non-toxic Head:Normocephalic, atraumatic Eye: Pupils equal and reactive to light, sclera not icteric, conjunctiva not anemic Nose: no discharge Throat: Oropharynx is clear, with moist mucous membranes, no signs of exudate. Neck: Supple Chest: Clear to Auscultation bilaterally, no crackle, no wheeze Heart: Regular Rate and Rhythm, no murmurs, rubs, clicks Abdomen: Normal bowel sounds, soft and flat, no splenomegaly, mild tender, no rebound, no M cBurney's point tenderness, small hard mass at RLQ, per pt, when pt gets SBO, feels this mas s. Back: No deformity, no CVA tenderness Extremities: Warm, well-perfused, no peripheral edema Skin: No rash, no lesions Lymph: No gross edema or lymphadenopathy Neuro: CN II-XII grossly intact, moves all extremities ED Course Pt was brought here by family and triaged to acute side of the emergency department room 15 , seen by myself as well as the cosigning attending physician who was involved in all pertin ent aspects of this patient's examination, care, medical decision-making and disposition. Nu rsing notes were noted and reviewed. DDx includes, SBO, s/p appendectomy. PID is remote dx at this point Tests: CBC, CMP, lipase, abd 3 view, UA Meds/IVs: NS 2 L bolus, zofran 4 mg iv, Tylenol 650 mg po Consults: EGS Results for orders placed during the hospital encounter of 10/31/09 URINE, MICROSCOPIC EXAM Component Value Range SQUAMOUS EPITHELIAL Few (*) (/hpf) NON-SQUAMOUS EPITH None (/hpf) RED CELLS None 0 - 3 (/hpf) WHITE CELLS None 0 - 5 (/hpf) BACTERIA None (/hpf) MUCOUS None (/hpf) HYALINE CASTS None 0 - 1 (/lpf) GRANULAR CASTS None (/lpf) CELLULAR CASTS None (/lpf) AMORPHOUS CRYSTALS None (/hpf) CALCIUM OXALATE ALLISON None (/hpf) URIC ACID CRYSTALS None (/hpf) TRIPLE P04 CRYSTALS None (/hpf) YEAST (LAB) None (/hpf) TRICHOMONAS None (/hpf) UA DIPSTICK ONLY W/O MICRO, POC Component Value Range COLOR (UA DIP), POC yellow APPEARANCE (UA DIP), POC clear LEUKOCYTES (UA DIP), POC neg > Negative NITRITES (UA DIP), POC neg > Negative UROBILINOGEN (UA DIP), POC 0.2 > 0.2 (OMAR UNITS) PROTEIN (UA DIP), POC neg > Negative to Trace (mg/dL) PH (UA DIP), POC 6.0 5 - 8 BLOOD (UA DIP), POC trace lysed > Negative SPECIFIC GRAVITY (UA DIP), POC 1.015 1.005 - 1.03 KETONES (UA DIP), POC trace > Negative (mg/dL) BILIRUBIN (UA DIP), POC neg > Negative GLUCOSE (UA DIP), POC neg > Negative to Trace (mg/dL) CBC, WITH DIFFERENTIAL Component Value Range WHITE CELL COUNT 6.2 4.4 - 11.0 (K/cu mm) RED CELL COUNT 4.73 4.00 - 5.20 (M/cu mm) HEMOGLOBIN 14.6 12.0 - 16.0 (g/dL) HEMATOCRIT 42.7 36.0 - 46.0 (%) MCV 90.3 80.0 - 96.0 (fL) MCHC 34.1 33.4 - 35.5 (g/dL) RDW 13.7 11.5 - 15.0 (%) PLATELET COUNT 146 (*) 150 - 400 (K/cu mm) COMPLETE METABOLIC SET (NA,K,CL,CO2,BUN,CREAT,GLUC,CA,AST,ALT,BILI TOTAL,ALK PHOS,ALB,PROT TOTAL) Component Value Range GLUCOSE, PLASMA (LAB) 84 60 - 99 (mg/dL) BUN 12 6 - 20 (mg/dL) CREATININE,PLASMA 0.82 0.60 - 1.10 (mg/dL) TOTAL PROTEIN 6.5 6.1 - 7.9 (g/dL) ALBUMIN (LAB) 3.7 3.5 - 4.7 (g/dL) CALCIUM (LAB) 9.4 8.6 - 10.2 (mg/dL) BILIRUBIN TOTAL 1.5 (*) 0.3 - 1.2 (mg/dL) ALK PHOS 64 53 - 141 (U/L) AST(SGOT) 61 (*) 15 - 41 (U/L) SODIUM (LAB) 141 134 - 143 (mmol/L) POTASSIUM (LAB) 4.9 3.4 - 5.0 (mmol/L) CHLORIDE 105 97 - 108 (mmol/L) TOTAL CO2 27 23 - 31 (mmol/L) ALT (SGPT) 24 13 - 48 (U/L) EGFR - AUSTRIAN > 60 > 60 (mL/min) EGFR NON -AUSTRIAN > 60 > 60 (mL/min) AST CMNT MOD HEMO POTASSIUM CMNT MOD HEMO BILI T CMNT MOD HEMO LIPASE, PLASMA Component Value Range LIPASE (LAB) 18 (*) 22 - 51 (U/L) DIFFERENTIAL Component Value Range NEUTROPHIL % 60 50 - 70 (%) LYMPHOCYTE % 30 18 - 42 (%) MONOCYTE % 9 (*) 2 - 8 (%) EOS % 1 1 - 3 (%) BASO % 1 < 3 (%) NEUTROPHIL # 3.7 1.8 - 7.7 (K/cu mm) LYMPHOCYTE # 1.9 1.0 - 4.8 (K/cu mm) MONOCYTE # 0.6 < 0.9 (K/cu mm) EOS # 0.1 < 0.6 (K/cu mm) BASO # 0.1 < 0.3 Abd 3-view : no air fluid level, no free air. Gas till rectum Medical Decision Making Adriana Flynn is a 64 y.o. female with hx of multiple abd surg s/p cholecystectomy, appende ctomy, ectopic , liver cyst removal in 2005 etc and SBO x6, last one was a year ago is here for RLQ pain and nausea. Initial VSs : BP 137/73 | Pulse 6 9 | Temp 36.8 C | Resp 12 | Wt 64.411 kg (142 lb) | SpO2 99%. GCS 15. Physical exam was r emarkable for Normal bowel sounds, soft and flat, no splenomegaly, mild tender, no rebound, no McBurney's point tenderness, small hard mass at RLQ, per pt, when pt gets SBO, feels this mass. DDx includes, SBO, UTI, s/p appendectomy. PID is remote dx at this point. WBC wnl, Slightly elevated LFT's and adwoa, neg lipase, neg UA, no UTI. Pt called Dr Alea Noriega (GI) EXPERIMENTAL MECHANIC and was told call GI motion picture cameraman fellow when pt got here. GI fellow was informed that we initia dean SBO work ups. She got so many CTs already and she wants to avoid radiation. This time he r SBO symptom is mild and x-ray was not impressive. Holding CT now and waiting for EGS to s pt and their input. Pt is aware of this. 2007, admitted to EGS for SBO. Impression -nausea and RLQ pain, likely mild partial SBO Plan -pt's care was transferred to Dr Valerio at 715 pm with stable condition -waiting for EGS to see, holding CT at this point Florinda Weber RN - 10/31/2009 1:24 PM PDTPt c/o RLQ burni ng pain x 2 days. + nausea. Hx SBO every 1 to 1.5 years. No constipation, or diarrhea. P laced self on clear liquid diet when pain started so not a lot of UOP. Denies fever. Pain worse when supine. do cumented in this encounter Miscellaneous Notes Scan - Other, Faculty - 11/24/2009 6:55 AM PDT Scan - Other, Faculty - 11/07/2009 6:27 PM PDT Scan - Other, Faculty - 11/07/2009 6:27 PM PDT Scan - Other, Faculty - 11/07/2009 6:27 PM PDT Plan of Juan Antonio Rodríguez Leora Cobb - 11/02/2009 2:30 PM PDTProblem: Nutrition Interventions Intervention: Coordination of Nutrition Care Cont CL diet as appropriate, when indicated ADAT "low residue", lactose free Added Lactose to allergie list Monitor bowel movements and lytes Following Comments: 64 y.o. female who admitted for possible partial SBO (2/2 anastomotic stricture) vs constip ation. Pt reports feeling hungry, +N x 4 days, avoids lactose/soy/red meat, consumes a wide variety of supplements at home which are monitored by pts manager culture. PMH: breast ca, osteopenia, h/o SBO, skin Ca, diverticula, Sjogren Diet: CL (11/01) Pert labs: (11/02) noted BM (11/01) x 4 liquid (11/02) x 1 liquid green Pert Meds: calcium citrate, Vit D3, dilaudid, prevacid, MVI, miralax, KCl Ht: 66" per pt Wt: 64 kg per pt BMI: 22.7 IBW: 56.8 kg %I BW: 112 Estimated Nutritional Needs: 2247-5626 kcal (25-30 kcal/kg), 64-77 g pro (1-1.2 g/kg) Leora Cobb RD Pgr # [id number] [facility] - Mack Johnosn - 11/01/2009 8:04 AM PDTProblem: Case Management Goals Goal: Discharge Needs Met Outcome: Goal not met Initial Case Management Note Reason for admission: Admit for SBO versus constipation. Conservative management currently . Pre-admission living situation: [place]. Pre-admission functional status: PMH for multiple OR's and SBO's. Family/support system: Spouse, Gene. Insurance/funding in place: Medicare & ODS commercial. Anticipated discharge needs: Visited with the patient at the bedside, re: discharge planni colette. Patients is available for transport and home assist. No discharge needs anticipa ted. Amin [id number] D Teaching Notes - Jorden Mejia MD - 10/31/2009 6:11 PM PDT Teaching Attestation: I saw and evaluated the patient and discussed the diagnosis and lynne gement of the patient with the Resident. I performed and confirmed the witt portions of the service. See also the Resident's note from today's visit. I agree with the documentation, findings, and plan of care. Briefly: Presents with R sided abd pain and nausea; had BM this am. Mult previous SBO secon robinson to mult abd surgeries. Have always responded to nowel rest; Recent R breast Ca with exc ision and lymphedema of R arm. Exam shows: Abd is soft with mild-mod R sided tenderness. Lab and Ancillary testing have revealed: Results for orders placed during the hospital encounter of 10/31/09 URINE, MICROSCOPIC EXAM Component Value Range SQUAMOUS EPITHELIAL Few (*) (/hpf) NON-SQUAMOUS EPITH None (/hpf) RED CELLS None 0 - 3 (/hpf) WHITE CELLS None 0 - 5 (/hpf) BACTERIA None (/hpf) MUCOUS None (/hpf) HYALINE CASTS None 0 - 1 (/lpf) GRANULAR CASTS None (/lpf) CELLULAR CASTS None (/lpf) AMORPHOUS CRYSTALS None (/hpf) CALCIUM OXALATE ALLISON None (/hpf) URIC ACID CRYSTALS None (/hpf) TRIPLE P04 CRYSTALS None (/hpf) YEAST (LAB) None (/hpf) TRICHOMONAS None (/hpf) UA DIPSTICK ONLY W/O MICRO, POC Component Value Range COLOR (UA DIP), POC yellow APPEARANCE (UA DIP), POC clear LEUKOCYTES (UA DIP), POC neg > Negative NITRITES (UA DIP), POC neg > Negative UROBILINOGEN (UA DIP), POC 0.2 > 0.2 (OMAR UNITS) PROTEIN (UA DIP), POC neg > Negative to Trace (mg/dL) PH (UA DIP), POC 6.0 5 - 8 BLOOD (UA DIP), POC trace lysed > Negative SPECIFIC GRAVITY (UA DIP), POC 1.015 1.005 - 1.03 KETONES (UA DIP), POC trace > Negative (mg/dL) BILIRUBIN (UA DIP), POC neg > Negative GLUCOSE (UA DIP), POC neg > Negative to Trace (mg/dL) CBC, WITH DIFFERENTIAL Component Value Range WHITE CELL COUNT 6.2 4.4 - 11.0 (K/cu mm) RED CELL COUNT 4.73 4.00 - 5.20 (M/cu mm) HEMOGLOBIN 14.6 12.0 - 16.0 (g/dL) HEMATOCRIT 42.7 36.0 - 46.0 (%) MCV 90.3 80.0 - 96.0 (fL) MCHC 34.1 33.4 - 35.5 (g/dL) RDW 13.7 11.5 - 15.0 (%) PLATELET COUNT 146 (*) 150 - 400 (K/cu mm) COMPLETE METABOLIC SET (NA,K,CL,CO2,BUN,CREAT,GLUC,CA,AST,ALT,BILI TOTAL,ALK PHOS,ALB,PROT TOTAL) Component Value Range GLUCOSE, PLASMA (LAB) 84 60 - 99 (mg/dL) BUN 12 6 - 20 (mg/dL) CREATININE,PLASMA 0.82 0.60 - 1.10 (mg/dL) TOTAL PROTEIN 6.5 6.1 - 7.9 (g/dL) ALBUMIN (LAB) 3.7 3.5 - 4.7 (g/dL) CALCIUM (LAB) 9.4 8.6 - 10.2 (mg/dL) BILIRUBIN TOTAL 1.5 (*) 0.3 - 1.2 (mg/dL) ALK PHOS 64 53 - 141 (U/L) AST(SGOT) 61 (*) 15 - 41 (U/L) SODIUM (LAB) 141 134 - 143 (mmol/L) POTASSIUM (LAB) 4.9 3.4 - 5.0 (mmol/L) CHLORIDE 105 97 - 108 (mmol/L) TOTAL CO2 27 23 - 31 (mmol/L) ALT (SGPT) 24 13 - 48 (U/L) EGFR - AUSTRIAN > 60 > 60 (mL/min) EGFR NON -AUSTRIAN > 60 > 60 (mL/min) AST CMNT MOD HEMO POTASSIUM CMNT MOD HEMO BILI T CMNT MOD HEMO LIPASE, PLASMA Component Value Range LIPASE (LAB) 18 (*) 22 - 51 (U/L) DIFFERENTIAL Component Value Range NEUTROPHIL % 60 50 - 70 (%) LYMPHOCYTE % 30 18 - 42 (%) MONOCYTE % 9 (*) 2 - 8 (%) EOS % 1 1 - 3 (%) BASO % 1 < 3 (%) NEUTROPHIL # 3.7 1.8 - 7.7 (K/cu mm) LYMPHOCYTE # 1.9 1.0 - 4.8 (K/cu mm) MONOCYTE # 0.6 < 0.9 (K/cu mm) EOS # 0.1 < 0.6 (K/cu mm) BASO # 0.1 < 0.3 I have supervised the following procedures: Clinical Course in ED:X-rays show some A-F levels; Labs show Results for orders placed during the hospital encounter of 10/31/09 URINE, MICROSCOPIC EXAM Component Value Range SQUAMOUS EPITHELIAL Few (*) (/hpf) NON-SQUAMOUS EPITH None (/hpf) RED CELLS None 0 - 3 (/hpf) WHITE CELLS None 0 - 5 (/hpf) BACTERIA None (/hpf) MUCOUS None (/hpf) HYALINE CASTS None 0 - 1 (/lpf) GRANULAR CASTS None (/lpf) CELLULAR CASTS None (/lpf) AMORPHOUS CRYSTALS None (/hpf) CALCIUM OXALATE ALLISNO None (/hpf) URIC ACID CRYSTALS None (/hpf) TRIPLE P04 CRYSTALS None (/hpf) YEAST (LAB) None (/hpf) TRICHOMONAS None (/hpf) UA DIPSTICK ONLY W/O MICRO, POC Component Value Range COLOR (UA DIP), POC yellow APPEARANCE (UA DIP), POC clear LEUKOCYTES (UA DIP), POC neg > Negative NITRITES (UA DIP), POC neg > Negative UROBILINOGEN (UA DIP), POC 0.2 > 0.2 (OMAR UNITS) PROTEIN (UA DIP), POC neg > Negative to Trace (mg/dL) PH (UA DIP), POC 6.0 5 - 8 BLOOD (UA DIP), POC trace lysed > Negative SPECIFIC GRAVITY (UA DIP), POC 1.015 1.005 - 1.03 KETONES (UA DIP), POC trace > Negative (mg/dL) BILIRUBIN (UA DIP), POC neg > Negative GLUCOSE (UA DIP), POC neg > Negative to Trace (mg/dL) CBC, WITH DIFFERENTIAL Component Value Range WHITE CELL COUNT 6.2 4.4 - 11.0 (K/cu mm) RED CELL COUNT 4.73 4.00 - 5.20 (M/cu mm) HEMOGLOBIN 14.6 12.0 - 16.0 (g/dL) HEMATOCRIT 42.7 36.0 - 46.0 (%) MCV 90.3 80.0 - 96.0 (fL) MCHC 34.1 33.4 - 35.5 (g/dL) RDW 13.7 11.5 - 15.0 (%) PLATELET COUNT 146 (*) 150 - 400 (K/cu mm) COMPLETE METABOLIC SET (NA,K,CL,CO2,BUN,CREAT,GLUC,CA,AST,ALT,BILI TOTAL,ALK PHOS,ALB,PROT TOTAL) Component Value Range GLUCOSE, PLASMA (LAB) 84 60 - 99 (mg/dL) BUN 12 6 - 20 (mg/dL) CREATININE,PLASMA 0.82 0.60 - 1.10 (mg/dL) TOTAL PROTEIN 6.5 6.1 - 7.9 (g/dL) ALBUMIN (LAB) 3.7 3.5 - 4.7 (g/dL) CALCIUM (LAB) 9.4 8.6 - 10.2 (mg/dL) BILIRUBIN TOTAL 1.5 (*) 0.3 - 1.2 (mg/dL) ALK PHOS 64 53 - 141 (U/L) AST(SGOT) 61 (*) 15 - 41 (U/L) SODIUM (LAB) 141 134 - 143 (mmol/L) POTASSIUM (LAB) 4.9 3.4 - 5.0 (mmol/L) CHLORIDE 105 97 - 108 (mmol/L) TOTAL CO2 27 23 - 31 (mmol/L) ALT (SGPT) 24 13 - 48 (U/L) EGFR - AUSTRIAN > 60 > 60 (mL/min) EGFR NON -AUSTRIAN > 60 > 60 (mL/min) AST CMNT MOD HEMO POTASSIUM CMNT MOD HEMO BILI T CMNT MOD HEMO LIPASE, PLASMA Component Value Range LIPASE (LAB) 18 (*) 22 - 51 (U/L) DIFFERENTIAL Component Value Range NEUTROPHIL % 60 50 - 70 (%) LYMPHOCYTE % 30 18 - 42 (%) MONOCYTE % 9 (*) 2 - 8 (%) EOS % 1 1 - 3 (%) BASO % 1 < 3 (%) NEUTROPHIL # 3.7 1.8 - 7.7 (K/cu mm) LYMPHOCYTE # 1.9 1.0 - 4.8 (K/cu mm) MONOCYTE # 0.6 < 0.9 (K/cu mm) EOS # 0.1 < 0.6 (K/cu mm) BASO # 0.[address] deferred at patient's request. EGS consult. Medical Decision Making: Clinical Impression:SBO; Management/ Plan:Admit to EGS SBAR: Mee document ed in this encounter Plan of Treatment Not on filedocumented as of this encounter Procedures + +--------+ + + + | Procedure Name | Priori | Date/Time | Associated Diagnosis | Comments | | | ty | | | | + +--------+ + + + | ORDERS OTHER | | 11/04/2009 | | Results for this | | | | 9:43 AM | | procedure are in the | | | | PDT | | results section. | + +--------+ + + + | BASIC METABOLIC SET | Urgent | 11/04/2009 | | Results for this | | (NA, K, CL, TCO2, | | 5:01 AM | | procedure are in the | | BUN, CR, GLU, CA) | | PDT | | results section. | + +--------+ + + + | MAGNESIUM, PLASMA | Urgent | 11/04/2009 | | Results for this | | | | 5:01 AM | | procedure are in the | | | | PDT | | results section. | + +--------+ + + + | X-RAY COLON BARIUM | Routin | 11/03/2009 | | Results for this | | FANNY Latosha RAZAPricila | e | 11:07 AM | | procedure are in the | | | | PDT | | results section. | + +--------+ + + + | BASIC METABOLIC SET | Urgent | 11/03/2009 | | Results for this | | (NA, K, CL, TCO2, | | 7:07 AM | | procedure are in the | | BUN, CR, GLU, CA) | | PDT | | results section. | + +--------+ + + + | MAGNESIUM, PLASMA | Urgent | 11/03/2009 | | Results for this | | | | 7:07 AM | | procedure are in the | | | | PDT | | results section. | + +--------+ + + + | BASIC METABOLIC SET | Urgent | 11/02/2009 | | Results for this | | (NA, K, CL, TCO2, | | 9:20 AM | | procedure are in the | | BUN, CR, GLU, CA) | | PDT | | results section. | + +--------+ + + + | MAGNESIUM, PLASMA | Urgent | 11/02/2009 | | Results for this | | | | 9:20 AM | | procedure are in the | | | | PDT | | results section. | + +--------+ + + + | BASIC METABOLIC SET | Urgent | 11/01/2009 | | Results for this | | (NA, K, CL, TCO2, | | 5:46 AM | | procedure are in the | | BUN, CR, GLU, CA) | | PDT | | results section. | + +--------+ + + + | MAGNESIUM, PLASMA | Urgent | 11/01/2009 | | Results for this | | | | 5:46 AM | | procedure are in the | | | | PDT | | results section. | + +--------+ + + + | RESP CARE THERAPY | Routin | 11/01/2009 | | Results for this | | | e | 12:42 AM | | procedure are in the | | | | PDT | | results section. | + +--------+ + + + | X-RAY ABD ACUTE 3 | Urgent | 10/31/2009 | | Results for this | | VIEWS (2 V ABD & 1 V | | 3:34 PM | | procedure are in the | | CXR) | | PDT | | results section. | + +--------+ + + + | DIFFERENTIAL | Urgent | 10/31/2009 | | Results for this | | | | 3:18 PM | | procedure are in the | | | | PDT | | results section. | + +--------+ + + + | CBC, WITH | Urgent | 10/31/2009 | | Results for this | | DIFFERENTIAL | | 3:18 PM | | procedure are in the | | | | PDT | | results section. | + +--------+ + + + | COMPLETE METABOLIC | Urgent | 10/31/2009 | | Results for this | | SET | | 3:18 PM | | procedure are in the | | (NA,K,CL,CO2,BUN,CRE | | PDT | | results section. | | AT,GLUC,CA,AST,ALT,B | | | | | | DANICA TOTAL,ALK | | | | | | PHOS,ALB,PROT TOTAL) | | | | | + +--------+ + + + | LIPASE, PLASMA | Urgent | 10/31/2009 | | Results for this | | | | 3:18 PM | | procedure are in the | | | | PDT | | results section. | + +--------+ + + + | UA 10 DIP POC | Urgent | 10/31/2009 | | Results for this | | | | 2:34 PM | | procedure are in the | | | | PDT | | results section. | + +--------+ + + + | URINE, MICROSCOPIC | Urgent | 10/31/2009 | | Results for this | | EXAM | | 2:33 PM | | procedure are in the | | | | PDT | | results section. | + +--------+ + + + | RADIOLOGY | | 01/12/2009 | | Results for this | | | | 12:00 AM | | procedure are in the | | | | PDT | | results section. | + +--------+ + + + documented in this encounter Results ORDERS OTHER (11/04/2009 9:43 AM PDT) + + + | Narrative | Performed At | + + + | | | + + + + + | Procedure Note | + + | Gisele Strong - 11/07/2009 6:28 PM PDT | | | + + DAKOTAH RAMIRZE (11/04/2009 5:01 AM PDT) + + + + [...] Performed At | + + + | Request cancelled by physician/rob REYNOLDS RN WAS NOTIFIED | [facility] | | | DEPARTMENT OF | | | PATHOLOGY | + + + + + + + + | Performing | Address | City/State/Zipcode | Phone Number | | Organization | | | | + + + + + | [facility]PARTMENT [facility] | [phone] | [place] [address] | | | PATHOLOGY | [address] | | | + + + + + BASIC METABOLIC SET (NA, K, CL, TCO2, BUN, CR, GLU, CA) (11/04/2009 5:01 AM PDT) + + + + + + | Component | Value | Ref Range | Performed | Pathologist | | | | | At | Signature | + + + + + + | GLUCOSE, | Request cancelled by | 60 - 99 mg/dL | [facility] | | | PLASMA | Physician/Floor. | | DEPARTMENT | | | (LAB) [...] Performed At | + + + | Request cancelled by physician/rob REYONLDS RN WAS NOTIFIED | [facility] | | | DEPARTMENT OF | | | PATHOLOGY | + + + + + + + + | Performing | Address | City/State/Zipcode | Phone Number | | Organization | | | | + + + + + | [facility]MENT [facility] | [address] | [place] [address] | | | PATHOLOGY | [address] | | | + + + + + X-RAY COLON BARIUM ENEMA Latosha CARTER (11/03/2009 11:07 AM PDT) + + + + + + | Component | Value | Ref Range | Performed | Pathologist | | | | | At | Signature | + + + + + + | COLON | STUDY: COLON BARIUM | | | | | BARIUM | ENEMA W KUB 11/03/09 | | | | | ENEMA W KUB | 11:07:00 COMPARISON: | | | | | | 10/31/09 (abdomen plain | | | | | | film series) and and | | | | | | 04/02/08(abdomen/pelvis | | | | | | CT) HISTORY: We are | | | | | | asked to evaluate for | | | | | | anastomotic stricture in | | | | | | thispatient with | | | | | | history of prior | | | | | | colectomy. PROCEDURE: | | | | | | Standard single contrast | | | | | | barium enema was | | | | | | performed | | | | | | usingapproximately 750 | | | | | | mL thin barium sulfate. | | | | | | FINDINGS: The colon was | | | | | | appropriately | | | | | | distensible and without | | | | | | focal | | | | | | stricturingidentified. | | | | | | The colon measured a | | | | | | minimum of 3 cm in | | | | | | diameter.Contrast was | | | | | | easily refluxed to the | | | | | | level of the cecum and | | | | | | terminalileum. The | | | | | | cecum was folded upon | | | | | | the descending colon in | | | | | | the rightmidabdomen. | | | | | | There are no | | | | | | diverticula identified. | | | | | | No mass lesionswere | | | | | | appreciated. IMPRESSION: | | | | | | No stricturing is | | | | | | observed of the colon in | | | | | | this patient status | | | | | | postsigmoidectomy. I | | | | | | have personally viewed | | | | | | this procedure/exam and | | | | | | reviewed this report. | | | | | | Author: SADIE RGEGG, | | | | | | MDReviewer: SADIE GREGG, | | | | | | MD STATUS FINAL / Dr. | | | | | | SADIE GREGG | | | | + + + + + + + + | Specimen | + + | | + + + +---------+ + + | Performing | Address | City/State/Zipcode | Phone Number | | Organization | | | | + +---------+ + + | [facility] | | | | | RADIOLOGY | | | | + +---------+ + + MAGNESIUM, PLASMA (11/03/2009 7:07 AM PDT) + +-------+ + + + [...] | + + + + + | [facility] | [address] | [place] [address] | | | PATHOLOGY | [address] | | | + + + + + BASIC METABOLIC SET (NA, K, CL, TCO2, BUN, CR, GLU, CA) (11/03/2009 7:07 AM PDT) + +-------+ + + + | Component | Value | Ref Range | Performed | Pathologist | | | | | At | Signature | + +-------+ + + + | GLUCOSE, | 91 | 60 - 99 mg/dL | INSU | | | PLASMA | | | [...] +-------+ + + + | CREATININE | 0.82 | 0.60 - 1.10 | [facility] | [...] +-------+ + + + | POTASSIUM, | 4.0 | 3.4 - 5.0 | [facility] | [...] +-------+ + + + | CALCIUM, | 9.4 | 8.6 - 10.2 | [facility] | | | PLASMA | | mg/dL | DEPARTMENT | | | (LAB) | | | OF | | | | | | PATHOLOGY | | + +-------+ + + + | TOTAL CO2, | 27 | 23 - 31 mmol/L | [facility] [...] | + + + + + | [facility] | [address] | [place] [address] | | | PATHOLOGY | [address] | | | + + + + + MAGNESIUM, PLASMA (11/02/2009 9:20 AM PDT) + +-------+ + + + | Component | Value | Ref Range | Performed | Pathologist | | | | | At | Signature | + +-------+ + + + | MAGNESIUM,P | 2.2 | 1.8 - 2.5 mg/dL | [facility] | | | LASMA | | | [...] | + + + + + | [facility] | [address] | [place] [address] | | | PATHOLOGY | [address] | | | + + + + + BASIC METABOLIC SET (NA, K, CL, TCO2, BUN, CR, GLU, CA) (11/02/2009 9:20 AM PDT) + +---------+ + + + | Component | Value | Ref Range | Performed | Pathologist | | | | | At | Signature | + +---------+ + + + | GLUCOSE, | 110 (H) | 60 - 99 mg/dL | [...] +---------+ + + + | CREATININE | 0.85 | 0.60 - 1.10 | [facility] | [...] + + | POTASSIUM, | 4.0 | 3.4 - 5.0 | [facility] | [...] | + + + + + | [facility] | [address] | [place] [address] | | | PATHOLOGY | [address] | | | + + + + + MAGNESIUM, PLASMA (11/01/2009 5:46 AM PDT) + +-------+ + + + [...] | + + + + + | [facility] | [address] | [place] [address] | | | PATHOLOGY | [address] | | | + + + + + BASIC METABOLIC SET (NA, K, CL, TCO2, BUN, CR, GLU, CA) (11/01/2009 5:46 AM PDT) + +---------+ + + + | Component | Value | Ref Range | Performed | Pathologist | | | | | At | Signature | + +---------+ + + + | GLUCOSE, | 60 | 60 - 99 mg/dL | [facility] [...] +---------+ + + + | CREATININE | 0.72 [...] + + | POTASSIUM, | 3.8 | 3.4 - 5.0 | [facility] | [...] +---------+ + + + | CALCIUM, | 8.5 (L) | 8.6 - 10.2 | [facility] | | | PLASMA | | mg/dL | DEPARTMENT | | | (LAB) | | | OF | | | | | | PATHOLOGY | | + +---------+ + + + | TOTAL CO2, | 20 (L) | 23 - 31 mmol/L | [facility] [...] + + | [facility] DEPART[facility] | [address] | [place] [address] | | | PATHOLOGY | [address] | | | + + + + + RESP CARE THERAPY (11/01/2009 12:42 AM PDT) + + + + + + | Component | Value | Ref Range | Performed | Pathologist | | | | | At | Signature | + + + + + + | RESPIRATORY | : History and Assessment | | [facility] | | | CARE | : OTHER SPECIFIED | | RESPIRATORY | | | | CARDIAC DYSRHYTHMIAS | | THERAPY | | | | Pulmonary problems: | | | | | | Current problems | | | | | | include, history of | | | | | | chronicobstructive | | | | | | pulmonary disease | | | | | | .Smoking history: The | | | | | | patient quit smoking but | | | | | | smoked in the past one | | | | | | ormore packs per | | | | | | day.Results of recent | | | | | | Chest X-ray: clear lung | | | | | | dee .Pain: Patients | | | | | | pain assessed and was a | | | | | | 0 on a scale of | | | | | | 0-10.Oxygen requirement: | | | | | | Patient was on room air | | | | | | with an oxygen | | | | | | saturation of100 %.Heart | | | | | | rate: 99 beats per | | | | | | minuteRespiratory rate: | | | | | | 18 breaths per | | | | | | minuteTemperature: 36.6 | | | | | | ? C.Breathsounds:clear | | | | | | .Cough and sputum | | | | | | production:Patient had | | | | | | no cough at this time. | | | | | | Treatments GivenNo | | | | | | therapy indicated at | | | | | | this time. Respiratory | | | | | | Acuity and Protocol | | | | | | PlanA respiratory | | | | | | evaluation has been | | | | | | completed. Based on this | | | | | | assesmentinhaled | | | | | | medication will be | | | | | | delivered by RN, the | | | | | | protocol will | | | | | | bediscontinued. | | | | | | Electronically Signed | | | | | | by: Mariza Lawson [facility] | | | | + + + + + + + + | Specimen | + + | | + + + + + + + | Performing | Address | City/State/Zipcode | Phone Number | | Organization | | | | + + + + + | [facility] | [address] | [place], [place] | | | THERAPY | [address] | [address] | | + + + + + X-RAY ABD ACUTE 3 VIEWS & PA CHEST (10/31/2009 3:34 PM PDT) + + + + + + | Component | Value | Ref Range | Performed | Pathologist | | | | | At | Signature | + + + + + + | ABD ACUTE 3 | STUDY: ABD ACUTE 3 VIEWS | | | | | VIEWS (2 V | & PA CHEST 10/31/09 | | | | | ABD & 1 V | 15:34:[id number] ACUTE | | | | | CXR) | 3 VIEWS & PA CHEST | | | | | | 10/31/09 15:34:00 | | | | | | COMPARISON: Abdomen from | | | | | | 04/01/2008. FINDINGS: | | | | | | Surgical clips are | | | | | | identified in the right | | | | | | axilla,consistent with | | | | | | axillary node | | | | | | dissection. The right | | | | | | breast issurgically | | | | | | absent. Heart size and | | | | | | mediastinal contours | | | | | | are withinnormal limits. | | | | | | The lungs are clear. | | | | | | There is no pleural | | | | | | effusion | | | | | | orpneumothorax.Surgical | | | | | | clips are identified in | | | | | | the right upper | | | | | | quadrant, suggestiveof | | | | | | prior cholecystectomy. | | | | | | Air intermixed with | | | | | | stool is | | | | | | identifiedwithin the | | | | | | nondistended large bowel | | | | | | and rectum. Multiple | | | | | | loops ofbowel are | | | | | | closely approximated to | | | | | | each other in the left | | | | | | upperquadrant, with | | | | | | evidence of bowel wall | | | | | | thickening, seen on the | | | | | | supineview only; it is | | | | | | uncertain whether this | | | | | | is small bowel or | | | | | | potentiallystrictured | | | | | | large bowel. There is | | | | | | no evidence of free | | | | | | intraperitonealgas or | | | | | | abnormal abdominal | | | | | | calcification. The | | | | | | soft tissues andosseous | | | | | | structures are | | | | | | unremarkable. | | | | | | IMPRESSION:No evidence | | | | | | of bowel obstruction or | | | | | | perforation.Bowel wall | | | | | | thickening in the left | | | | | | upper quadrant involving | | | | | | jejunumversus the | | | | | | colon.Recommend | | | | | | follow-up abdominal | | | | | | x-ray in one to two | | | | | | days. I have personally | | | | | | viewed this | | | | | | procedure/exam and | | | | | | reviewed this report. | | | | | | Author: MIREYA Baldwin | | | | | | MANDI MCKEONeviewer: | | | | | | MIREYA MCKEON MD | | | | | | STATUS FINAL / Dr. GOMES | | | | | | Denny MCKEON | | | | + + + [...] | | + +---------+ + + DIFFERENTIAL (10/31/2009 3:18 PM PDT) + +-------+ + + + [...] +-------+ + + + | LYMPHOCYTE | 30 | 18 - 42 % | [facility] | | | % | | | DEPARTMENT | | | | | | OF | | | | | | PATHOLOGY | | + +-------+ + + + | MONOCYTE % | 9 (H) | 2 - 8 % | [facility] [...] + + + | MONOCYTE # | 0.6 | <0.9 K/cu mm | [facility] | [...] | + + + + + | [facility] | [address] | [place] [address] | | | PATHOLOGY | [address] | | | + + + + + LIPASE, PLASMA (10/31/2009 3:18 PM PDT) + +--------+ + + + | Component | Value | Ref Range | Performed | Pathologist | | | | | At | Signature | + +--------+ + + + | LIPASE | 18 (L) | 22 - 51 U/L | [facility] | | | (LAB) | [...] DEPARTMENT OF | [address] | [place] [address] | | | PATHOLOGY | [address] | | | + + + + + COMPLETE METABOLIC SET (NA,K,CL,CO2,BUN,CREAT,GLUC,CA,AST,ALT,BILI TOTAL,ALK PHOS,ALB,PROT TOTAL) (10/31/2009 3:18 PM PDT) + + + + + + | Component | Value | Ref Range | Performed | Pathologist | | | | | At | Signature | + + + + + + | GLUCOSE, | 84 [...] + + + + | CREATININE | 0.82 | 0.60 - 1.10 | [facility] | [...] + + + + | ALBUMIN, | 3.7 | 3.5 - 4.7 g/dL | [facility] | | | PLASMA | | | DEPARTMENT | | | (LAB) | | | OF | | | | | | PATHOLOGY | | + + + + + + | CALCIUM, | 9.4 | 8.6 - 10.2 | [facility] | | | PLASMA | | mg/dL | DEPARTMENT | | | (LAB) | | | OF | | | | | | PATHOLOGY | | + + + + + + | BILIRUBIN | 1.5 (H) | 0.3 - 1.2 mg/dL | [facility] | | | TOTAL | | | DEPARTMENT | | | | | | OF | | | | | | PATHOLOGY | | + + + + + + | ALK PHOS | 64 | 53 - 141 U/L | [facility] | | | | | | DEPARTMENT | | | | | | OF | | | | | | PATHOLOGY | | + + + + + + | AST(SGOT) | 61 (H) | 15 - 41 U/L | [...] + + + + | POTASSIUM, | 4.9 | 3.4 - 5.0 | [facility] | [...] TOTAL CO2, | 27 | 23 - 31 mmol/L | [facility] [...] | | | DEPARTMENT | | | AUSTRIAN | | | OF | | | [...] + + + | AST CMNT | MOD HEMO | | [facility] | | | | | | DEPARTMENT | | | | | | OF | | | | | | PATHOLOGY | | + + + + + + | POTASSIUM | MOD HEMO | | [facility] | | | CMNT | | | DEPARTMENT | | | | | | OF | | | | | | PATHOLOGY | | + + + + + + | BILI T CMNT | MOD HEMO | | [facility] | | | [...] | [facility] DE[facility] OF | [address] | [place] [address] | | | PATHOLOGY | [address] | | | + + + + + CBC, WITH DIFFERENTIAL (10/31/2009 3:18 PM PDT) + +---------+ + + + [...] + + + | RED CELL | 4.73 | 4.00 - 5.20 | [facility] | | | COUNT | | M/cu mm | DEPARTMENT | | | | | | OF | | | | | | PATHOLOGY | | + +---------+ + + + | HEMOGLOBIN | 14.6 | 12.0 - 16.0 | [facility] | | | | | g/dL | DEPARTMENT | | | | | | OF | | | | | | PATHOLOGY | | + +---------+ + + + | HEMATOCRIT | 42.7 | 36.0 - 46.0 % | [facility] | | | | | | DEPARTMENT | | | | | | OF | | | | | | PATHOLOGY | | + +---------+ + + + | MCV | 90.3 | 80.0 - 96.0 fL | [facility] | | | | | | DEPARTMENT | | | | | | OF | | | | | | PATHOLOGY | | + +---------+ + + + | MCHC | 34.1 | 33.4 - 35.5 | [facility] | | | | | g/dL | DEPARTMENT | | | | | | OF | | | | | | PATHOLOGY | | + +---------+ + + + | RDW | 13.7 | 11.5 - 15.0 % | [facility] | | | | | | DEPARTMENT | | | | | | OF | | | | | | PATHOLOGY | | + +---------+ + + + | PLATELET | 146 (L) | 150 - 400 K/cu | [...] | + + + + + | [facility] | [address] | [place] [address] | | | PATHOLOGY | [address] | | | + + + + + UA DIPSTICK ONLY W/O MICRO, POC (10/31/2009 2:34 PM PDT) + + + + + + | Component | Value | Ref Range | Performed | Pathologist | | | | | At | Signature | + + + + + + | COLOR (UA | yellow | | [facility] - | | | DIP), POC | | | [facility] | | | | | | [place] | | | | | | OF CARE | | | | | | TESTS | | + + + + + + | APPEARANCE | clear | | [facility] - | | | (UA DIP), | | | [facility] | | | POC | | | [place] | | | | | | OF CARE | | | | | | TESTS | | + + + + + + | LEUKOCYTES | neg | Negative | [facility] - | | | (UA DIP), | | | [place] | | | POC | | | [facility] | | | | | | OF CARE | | | | | | TESTS | | + + + + + + | NITRITES | neg | Negative | [facility] - | | | (UA DIP), | | | [place] | | | POC | | | [place] | | | | | | OF CARE | | | | | | TESTS | | + + + + + + | UROBILINOGE | 0.2 | 0.2 OMAR | [facility] - | | | N (UA DIP), | | UNITS | [facility] | | | POC | | | [place] | | | | | | OF CARE | | | | | | TESTS | | + + + + + + | PROTEIN (UA | neg | Negative to | [facility] - | | | DIP), POC | | Trace mg/dL | [facility] | | | | | | [place] POINT | | | | | | OF CARE | | | | | | TESTS | | + + + + + + | PH (UA | 6.0 | 5 - 8 | [facility] - | | | DIP), POC | | | [facility] | | | | | | [place]INT | | | | | | OF CARE | | | | | | TESTS | | + + + + + + | BLOOD (UA | trace lysed | Negative | [facility] - | | | DIP), POC | | | [place] | | | | | | [place]INT | | | | | | OF CARE | | | | | | TESTS | | + + + + + + | SPECIFIC | 1.015 | 1.005 - 1.03 | [facility] - | | | GRAVITY (UA | | | [facility] | | | DIP), POC | | | [facility] | | | | | | OF CARE | | | | | | TESTS | | + + + + + + | KETONES (UA | trace | Negative mg/dL | [facility] - | | | DIP), POC | | | [place] | | | | | | [place] POINT | | | | | | OF CARE | | | | | | TESTS | | + + + + + + | BILIRUBIN | neg | Negative | [facility] - | | | (UA DIP), | | | [facility] | | | POC | | | [place]INT | | | | | | OF CARE | | | | | | TESTS | | + + + + + + | GLUCOSE (UA | neg | Negative to | [facility] - | | | DIP), POC | | Trace mg/dL | [facility] | | | | | | [place] POINT | | | | | | OF CARE | | | | | | TESTS | | + + + + + + + + | Specimen | + + | Urine | + + + + + + + | Performing | Address | City/State/Zipcode | Phone Number | | Organization | | | | + + + + + | [facility] | [address] | [place], [place] | | | [facility] | [address] | [address] | | | TESTS | | | | + + + + + URINE, MICROSCOPIC EXAM (10/31/2009 2:33 PM PDT) + +---------+ + + + | Component | Value | Ref Range | Performed | Pathologist | | | | | At | Signature | + +---------+ + + + | SQUAMOUS | Few (A) | /hpf | [facility] | | | EPITHELIAL | | | DEPARTMENT | | | | | | OF | | | | | | PATHOLOGY | | + +---------+ + + + | NON-SQUAMOU | None | /hpf | [facility] | | | S EPITH | | | DEPARTMENT | | | | | | OF | | | | | | PATHOLOGY | | + +---------+ + + + | RED CELLS | None | 0 - 3 /hpf | [facility] | | | | | | DEPARTMENT | | | | | | OF | | | | | | PATHOLOGY | | + +---------+ + + + | WHITE CELLS | None | 0 - 5 /hpf | [facility] | | | | | | DEPARTMENT | | | | | | OF | | | | | | PATHOLOGY | | + +---------+ + + + | BACTERIA | None | /hpf | [facility] | | | | | | DEPARTMENT | | | | | | OF | | | | | | PATHOLOGY | | + +---------+ + + + | MUCOUS | None | /hpf | [facility] | | | | | | DEPARTMENT | | | | | | OF | | | | | | PATHOLOGY | | + +---------+ + + + | HYALINE | None | 0 - 1 /lpf | [facility] | | | CASTS | | | DEPARTMENT | | | | | | OF | | | | | | PATHOLOGY | | + +---------+ + + + | GRANULAR | None | /lpf | [facility] | | | CASTS | | | DEPARTMENT | | | | | | OF | | | | | | PATHOLOGY | | + +---------+ + + + | CELLULAR | None | /lpf | [facility] | | | CASTS | | | DEPARTMENT | | | | | | OF | | | | | | PATHOLOGY | | + +---------+ + + + | AMORPHOUS | None | /hpf | [facility] | | | CRYSTALS | | | DEPARTMENT | | | | | | OF | | | | | | PATHOLOGY | | + +---------+ + + + | CALCIUM | None | /hpf | [facility] | | | OXALATE | | | DEPARTMENT | | | ALLISON | | | OF | | | | | | PATHOLOGY | | + +---------+ + + + | URIC ACID | None | /hpf | [facility] | | | CRYSTALS | | | DEPARTMENT | | | | | | OF | | | | | | PATHOLOGY | | + +---------+ + + + | TRIPLE P04 | None | /hpf | [facility] | | | CRYSTALS | | | DEPARTMENT | | | | | | OF | | | | | | PATHOLOGY | | + +---------+ + + + | YEAST (LAB) | None | /hpf | [facility] | | | | | | DEPARTMENT | | | | | | OF | | | | | | PATHOLOGY | | + +---------+ + + + | TRICHOMONAS | None | /hpf | [facility] | | | | | | DEPARTMENT | | | | | | OF | | | | | | PATHOLOGY | | + +---------+ + + + + + | Specimen | + + | Urine - Urine | + + + + + + + | Performing | Address | City/State/Zipcode | Phone Number | | Organization | | | | + + + + + | [facility] | [address] | [place] [address] | | | PATHOLOGY | [address] | | | + + + + + RADIOLOGY (01/12/2009 12:00 AM PDT) + + + | Narrative | Performed At | + + + | | | + + + + + | Procedure Note | + + | Gisele Strong - 03/02/2010 10:14 AM PDT | | | + + documented in this encounter Visit Diagnoses + + | Diagnosis | + + | Atrial tachycardia 427.89 Other specified cardiac dysrhythmias | + + | Partial small bowel obstruction (HCC) Unspecified intestinal obstruction | + + | Constipation Unspecified constipation | + + | Abdominal pain Abdominal pain, unspecified site | + + documented in this encounter Administered Medications + +--------+ +--------+------+------+ | Medication Order | MAR | Action | Dose | Rate | Site | | | Action | Date | | | | + +--------+ +--------+------+------+ | acetaminophen (aka TYLENOL) | Given | 11/01/19 | 650 mg | | | | tablet 650 mg 650 mg, oral, | | 10 7:09 | | | | | ONCE, 1 dose, 10/31/09 at 1900 | | PM PDT | | | | + +--------+ +--------+------+------+ +---+---+ | | | +---+---+ + +-------+ +--------+---+---+ | acetaminophen (aka TYLENOL) | Given | 11/03/19 | 650 mg | | | | tablet 650 mg 650 mg, oral, | | 10 4:16 | | | | | EVERY 4 HOURS NEEDED, Starting | | AM PDT | | | | | 10/31/09 at 2359, Until [place] | | | | | | | 11/04/09 at 1543, mild pain, | | | | | | | headache | | | | | | + +-------+ +--------+---+---+ +-------+ +--------+---+---+ | Given | 11/02/19 | 650 mg | | | | | 10 4:32 | | | | | | PM PDT | | | | +-------+ +--------+---+---+ +---+---+ | | | +---+---+ + +-------+ +------+---+---+ | anastrozole (aka ARIMIDEX) | Given | 11/05/19 | 1 mg | | | | tablet 1 mg 1 mg, oral, DAILY, | | 10 8:48 | | | | | First dose on 11/01/09 at | | AM PDT | | | | | 1915, Until Discontinued | | | | | | + +-------+ +------+---+---+ +-------+ +------+---+---+ | Given | 11/04/19 | 1 mg | | | | | 10 8:19 | | | | | | AM PDT | | | | +-------+ +------+---+---+ | Given | 11/03/19 | 1 mg | | | | | 10 10:22 | | | | | | AM PDT | | | | +-------+ +------+---+---+ +---+---+ | | | +---+---+ + +-------+ +-------+---+---+ | atenolol (aka TENORMIN) tablet | Given | 11/02/19 | 25 mg | | | | 25 mg 25 mg, oral, DAILY, First | | 10 8:08 | | | | | dose on Sun11/01/09 at 0900, | | AM PDT | | | | | Until Discontinued | | | | | | + +-------+ +-------+---+---+ +---+---+ | | | +---+---+ + +-------+ +-------+---+---+ | atenolol (aka TENORMIN) tablet | Given | 11/05/19 | 25 mg | | | | 25 mg 25 mg, oral, TWICE DAILY, | | 10 8:53 | | | | | First dose (after last | | AM PDT | | | | | modification) on Sun11/01/09 at | | | | | | | 2300, Until Discontinued | | | | | | + +-------+ +-------+---+---+ +-------+ +-------+---+---+ | Given | 11/04/19 | 25 mg | | | | | 10 9:01 | | | | | | PM PDT | | | | +-------+ +-------+---+---+ | Given | 11/04/19 | 25 mg | | | | | 10 8:19 | | | | | | AM PDT | | | | +-------+ +-------+---+---+ +---+---+ | | | +---+---+ + +-------+ +--------+---+---+ | calcium citrate (aka CITRACAL) | Given | 11/05/19 | 950 mg | | | | tablet 950 mg 950 mg, oral, | | 10 8:48 | | | | | TWICE DAILY, First dose on Sun | | AM PDT | | | | | 11/02/09 at 1045, Until | | | | | | | Discontinued | | | | | | + +-------+ +--------+---+---+ +-------+ +--------+---+---+ | Given | 11/04/19 | 950 mg | | | | | 10 9:01 | | | | | | PM PDT | | | | +-------+ +--------+---+---+ | Given | 11/04/19 | 950 mg | | | | | 10 8:19 | | | | | | AM PDT | | | | +-------+ +--------+---+---+ +---+---+ | | | +---+---+ + +-------+ + +---+---+ | calcium-vitamin D (aka OS-NBA | Given | 11/02/19 | 1 tablet | | | | 500 + D) 500 mg(1,250mg) -200 | | 10 8:08 | | | | | unit 1 Tab 1 tablet, oral, | | AM PDT | | | | | DAILY, First dose on 11/01/09 | | | | | | | at 0900, Until Discontinued | | | | | | + +-------+ + +---+---+ +---+---+ | | | +---+---+ + +-------+ +-------+---+---+ | cholecalciferol (aka VITAMIN | Given | 11/05/19 | 400 | | | | D-3) tablet 400 Units 400 Units, | | 10 8:48 | Units | | | | oral, TWICE DAILY, First dose on | | AM PDT | | | | | 11/02/09 at 1130, Until | | | | | | | Discontinued | | | | | | + +-------+ +-------+---+---+ +-------+ +-------+---+---+ | Given | 11/04/19 | 400 | | | | | 10 9:01 | Units | | | | | PM PDT | | | | +-------+ +-------+---+---+ | Given | 11/04/19 | 400 | | | | | 10 8:19 | Units | | | | | AM PDT | | | | +-------+ +-------+---+---+ +---+---+ | | | +---+---+ + +-------+ +---------+---+---+ | dofetilide ([place] GARCIA) | Given | 11/05/19 | 500 mcg | | | | capsule 500 mcg 500 mcg, oral, | | 10 8:48 | | | | | TWICE DAILY, First dose on Mon | | AM PDT | | | | | 11/01/09 at 0000, Until | | | | | | | Discontinued | | | | | | + +-------+ +---------+---+---+ +-------+ +---------+---+---+ | Given | 11/04/19 | 500 mcg | | | | | 10 9:01 | | | | | | PM PDT | | | | +-------+ +---------+---+---+ | Given | 11/04/19 | 500 mcg | | | | | 10 8:19 | | | | | | AM PDT | | | | +-------+ +---------+---+---+ +---+---+ | | | +---+---+ + +-------+ + +---+---+ | fluticasone (aka FLONASE) 50 | Given | 11/05/19 | 2 sprays | | | | mcg/Actuation nasal spray 2 [place] | | 10 8:48 | | | | | 2 spray, both nostrils, DAILY, | | AM PDT | | | | | First dose on Sun11/01/09 at | | | | | | | 0900, Until Discontinued | | | | | | + +-------+ + +---+---+ +-------+ + +---+---+ | Given | 11/04/19 | 2 sprays | | | | | 10 8:19 | | | | | | AM PDT | | | | +-------+ + +---+---+ | Given | 11/03/19 | 2 sprays | | | | | 10 8:30 | | | | | | AM PDT | | | | +-------+ + +---+---+ +---+---+ | | | +---+---+ + +-------+ +--------+---+---+ | fluticasone (aka FLOVENT) 110 | Given | 11/05/19 | 1 puff | | | | mcg/Actuation inhaler 1 Puff 1 | | 10 8:53 | | | | | puff, inhalation, TWICE DAILY, | | AM PDT | | | | | First dose on 11/01/09 at | | | | | | | 0045, Until Discontinued | | | | | | + +-------+ +--------+---+---+ +-------+ +--------+---+---+ | Given | 11/04/19 | 1 puff | | | | | 10 9:01 | | | | | | PM PDT | | | | +-------+ +--------+---+---+ | Given | 11/04/19 | 1 puff | | | | | 10 8:19 | | | | | | AM PDT | | | | +-------+ +--------+---+---+ +---+---+ | | | +---+---+ + +---------+ +---+-------+---+ | lactated ringers IV | New Bag | 11/02/19 | | 100 | | | intravenous, CONTINUOUS, Starting | | 10 12:34 | | mL/hr | | | 11/01/09 at 0000, Until Mon | | AM PDT | | | | | 11/01/09 at 1115 | | | | | | + +---------+ +---+-------+---+ +---+---+ | | | +---+---+ + +-------+ +-------+---+---+ | lansoprazole (aka PREVACID) | Given | 11/05/19 | 30 mg | | | | capsule 30 mg 30 mg, oral, | | 10 8:48 | | | | | DAILY, First dose on 11/01/09 | | AM PDT | | | | | at 0900, Until Discontinued | | | | | | + +-------+ +-------+---+---+ +-------+ +-------+---+---+ | Given | 11/04/19 | 30 mg | | | | | 10 8:19 | | | | | | AM PDT | | | | +-------+ +-------+---+---+ | Given | 11/03/19 | 30 mg | | | | | 10 8:30 | | | | | | AM PDT | | | | +-------+ +-------+---+---+ +---+---+ | | | +---+---+ + +-------+ +--------+---+---+ | magnesium citrate liquid 150 mL | Given | 11/02/19 | 150 mL | | | | 150 mL, oral, ONCE, 1 dose, Mon | | 10 5:30 | | | | | 11/01/09 at 0000 | | AM PDT | | | | + +-------+ +--------+---+---+ +---+---+ | | | +---+---+ + +-------+ +------+---+---+ | morphine injection 2 mg 2 mg, | Given | 11/01/19 | 2 mg | | | | intravenous, ONCE, 1 dose, Sun | | 10 4:20 | | | | | 10/31/09 at 1630 | | PM PDT | | | | + +-------+ +------+---+---+ +---+---+ | | | +---+---+ + +-------+ +---------+---+---+ | multivitamin 1 Cap 1 capsule, | Given | 11/05/19 | 1 | | | | oral, DAILY, First dose on Mon | | 10 8:48 | capsule | | | | 11/01/09 at 0900, Until | | AM PDT | | | | | Discontinued | | | | | | + +-------+ +---------+---+---+ +-------+ +---------+---+---+ | Given | 11/04/19 | 1 | | | | | 10 8:19 | capsule | | | | | AM PDT | | | | +-------+ +---------+---+---+ | Given | 11/03/19 | 1 | | | | | 10 8:30 | capsule | | | | | AM PDT | | | | +-------+ +---------+---+---+ +---+---+ | | | +---+---+ + +-------+ + +---+---+ | NaCl 0.9 % IV bolus 1,000 mL, | Given | 11/01/19 | 1,000 mL | | | | intravenous, ONCE, 1 dose, Sun | | 10 7:05 | | | | | 10/31/09 at 1815 | | PM PDT | | | | + +-------+ + +---+---+ +---+---+ | | | +---+---+ + +-------+ + +---+---+ | NaCl 0.9 % IV 1,000 mL, | Given | 11/01/19 | 1,000 mL | | | | intravenous, ONCE, 1 dose, Sun | | 10 3:50 | | | | | 10/31/09 at 1530 | | PM PDT | | | | + +-------+ + +---+---+ +---+---+ | | | +---+---+ + +-------+ +------+---+---+ | ondansetron (aka NORMA) | Given | 11/01/19 | 4 mg | | | | injection 4 mg 4 mg, | | 10 3:50 | | | | | intravenous, ONCE, 1 dose, Sun | | PM PDT | | | | | 10/31/09 at 1530 | | | | | | + +-------+ +------+---+---+ +---+---+ | | | +---+---+ + +-------+ +------+---+---+ | polyethylene glycol (aka | Given | 11/05/19 | 17 g | | | | MIRALAX) powder 17 g 17 g, oral, | | 10 8:48 | | | | | DAILY, First dose on Sun11/01/09 | | AM PDT | | | | | at 0900, Until Discontinued | | | | | | + +-------+ +------+---+---+ +-------+ +------+---+---+ | Given | 11/03/19 | 17 g | | | | | 10 8:30 | | | | | | AM PDT | | | | +-------+ +------+---+---+ +---+---+ | | | +---+---+ + +-------+ +--------+---+---+ | potassium chloride SR (aka | Given | 11/05/19 | 20 mEq | | | | K-DUR) tablet 20 mEq 20 mEq, | | 10 8:48 | | | | | oral, DAILY, First dose on Mon | | AM PDT | | | | | 11/01/09 at 0900, Until | | | | | | | Discontinued | | | | | | + +-------+ +--------+---+---+ +-------+ +--------+---+---+ | Given | 11/04/19 | 20 mEq | | | | | 10 8:19 | | | | | | AM PDT | | | | +-------+ +--------+---+---+ | Given | 11/03/19 | 20 mEq | | | | | 10 8:30 | | | | | | AM PDT | | | | +-------+ +--------+---+---+ +---+---+ | | | +---+---+ + +-------+ +--------+---+---+ | tiotropium (aka SPIRIVA) | Given | 11/05/19 | 18 mcg | | | | inhalation 18 mcg 18 mcg, | | 10 8:48 | | | | | inhalation, DAILY, First dose | | AM PDT | | | | | (after last modification) on Mon | | | | | | | 11/01/09 at 0900, Until | | | | | | | Discontinued | | | | | | + +-------+ +--------+---+---+ +-------+ +--------+---+---+ | Given | 11/04/19 | 18 mcg | | | | | 10 8:19 | | | | | | AM PDT | | | | +-------+ +--------+---+---+ | Given | 11/03/19 | 18 mcg | | | | | 10 8:30 | | | | | | AM PDT | | | | +-------+ +--------+---+---+ +---+---+ | | | +---+---+ documented in this encounter
--- OUTSIDE RECORDS SUMMARY | ~2020-05-04 | XMS | Encounter Summary ---
Demographics + + + | Address | [address] | | | [place] [address] | + + + | Home Phone [...] + | Gene Gee | ECON | [address] | | | | | [place], | | | | | [place] [address] | | + + + + + Care Team Providers + +------+ + | Care Religious Education Teacher Name | Role | Phone | + +------+ + | Antony Ribera MD | PCP | | + +------+ + Reason for Visit + +--------+ + | Reason | Onset | Comments | | | Date | | + +--------+ + | Refill Request | 07/23/ | | | | 2008 | | + +--------+ + Encounter Details +--------+--------+ + + + | Date | Type | Department | Care Team | Description | +--------+--------+ + + + | 07/23/ | Refill | Cardiology | Gary Fuentes MD | Refill Request | | 2008 | | Arrhythmia at [facility] | [address] | | | | | [address] | [address] [place], | | | | | [facility] | [place] [address] | | | | | and Healing, | [phone] | | | | | [facility] | | | | | | Floor [place], [place] | | | | | | [address] | | | | | | [phone] | | | +--------+--------+ + + + [...] Miscellaneous Notes Telephone Encounter - Katie Keita - 07/23/2008 10:47 AM PSTCarol needs refill nate mo for her Tikosyn - only needs another month. She will be going on Medicare in and will then need a different prescription for a 90-day supply for mail-in prescriptions. I asked Adriana to let us know when she is on Medicare and the mail-order pharmacy she will b e using - we can then just electonically fax new rx for 90-days to the them.Electronically s igned by Katie Keita at 07/23/2008 10:47 AM PSTdocumented in this encounter Plan of Treatment Not on filedocumented as of this encounter Visit Diagnoses Not on filedocumented in this encounter"
--- OUTSIDE RECORDS SUMMARY | ~2020-05-04 | XMS | Encounter Summary ---
Demographics + + + | Address | [address] | | | [place] [address] | + + + | Home Phone [...] + | Gene Gee | ECON | [address] | | | | | [place], | | | | | [place] [address] | | + + + + + Care Team Providers + +------+ + | Care Global Compensation Director Name | Role | Phone | + +------+ + | Antony Ribera MD | PCP | | + +------+ + Reason for Visit + +--------+ + | Reason | Onset | Comments | | | Date | | + +--------+ + | Appointment Question | 02/13/ | | | | 2012 | | + +--------+ + Encounter Details +--------+ + + + + | Date | Type | Department | Care Team | Description | +--------+ + + + + | 02/13/ | Telephone | Hematology/Medical | Laisha Sims | Appointment Question | | 2012 | | Oncology at [facility] | MD Sudhir [address] | | | | | [address] | [place], [place] | | | | | Mailcode: [place] | [address] | | | | | [facility] | [phone] | | | | | and [place], | | | | | | [facility] | | | | | | [place], [place] | | | | | | [address] | | | | | | [phone] | | | +--------+ + + + [...] Telephone Encounter - Rosalinda Palacios RN - 02/13/2013 11:[address] Bethany roberts rding message below from schedulers. Patient does not need to follow up with medical oncolo gist, but should have yearly breast exams with mammograms with local doctor. PCP would be o aleksander. Called to relay this message to the patient. Patient states that she has yearly breas t exams and mammograms with Dr. Heart at [facility]. She appreciates call back to confirm medic al oncologist appointments are no longer needed. No further questions at this time. ----- Message ----- From: Power Gonsalez Sent: 02/07/2013 2:38 PM To: Laisha Sims MD, Hem Sched [place], * Subject: pt reschedule or cancel? This is a pt that was scheduled for late April for her 1 year follow up with Jackie. I call ed her to reschedule with Laisha but the pt declined to reschedule at this time. She is as lily if she needs to still come in for this appt as she is several years out from her tx. If you could please review her chart and let the schedulers know if she should still be seen o r not so we can inform the pt. Thanks Power documented in this en counter Plan of Treatment Not on filedocumented as of this encounter Visit Diagnoses Not on filedocumented in this encounter"
--- OUTSIDE RECORDS SUMMARY | ~2020-05-04 | XMS | Encounter Summary ---
Demographics + + + | Address | [address] | | | [place] [address] | + + + | Home Phone [...] + | Gene Gee | ECON | [address] | | | | | [place], | | | | | [place] [address] | | + + + + + Care Team Providers + +------+ + | Care Disability Insurance Hearing Officer Name | Role | Phone | [...] + + | 02/14/ | Refill | Hematology/Medical | Stevan Velazquez, | Refill Request | | 2010 | | Oncology at [facility] | MD [address] | | | | | [address] | [facility] [place] | | | | | Mailcode: [facility] | [address] | | | | | [facility] | [phone] | | | | | and Healing, | | | | | | [facility] | | | | | | Floor [facility] [place] | | | | | | [address] | | | | | | [phone] | | | +--------+--------+ + + + [...] Telephone Encounter - Rosalinda Palacios RN - 02/14/2011 12:37 PM PDTReceived refill request for anastrozole from [facility]. Routing to provider for approval.Electronically sig elenita by Rosalinda Palacios RN at 02/14/2011 12:37 PM PDTdocumented in this encounter Plan of Treatment Not on filedocumented as of this encounter Visit Diagnoses Not on filedocumented in this encounter"
--- OUTSIDE RECORDS SUMMARY | ~2020-05-04 | XMS | Encounter Summary ---
Demographics + + + | Address | [address] | | | [place] [address] | + + + | Home Phone [...] + | Gene Gee | ECON | [address] | | | | | [place], | | | | | [place] [address] | | + + + + + Care Team Providers + +------+ + | Care Barber Apprentice Name | Role | Phone | [...] + + | 06/25/ | Office | Preoperative | Ita Tidwell | Other specified | | 2011 | Visit | Medicine Clinic at | F, HOME VISITOR | pre-operative | | | | [facility] 4th Floor [address] | | examination (Primary | | | | [address] | | Dx) | | | | Mailcode: [facility] | | | | | | [facility] | | | | | | and Healing, | | | | | | Building 1,4th Floor | | | | | | [place], [place] | | | | | | [address] | | | | | | [phone] | | | +--------+---------+ + + + Anesthesia Record + + + + + | Procedure Name | Responsible | Anesthesia Start | Anesthesia Stop Time | | | Anesthesiologist | Time | | + + + + + | RIGHT BREAST | Monique Macias MD | 06/26/12 1455 | 06/26/12 1703 | | RECONSTRUCTION WITH | | | | | TISSUE WATER AND SEWER SYSTEMS SUPERVISOR | | | | | PLACEMENT Pathology [...] 18; | 06/26/12 0000 by | 06/27/12 1036 by | | D - | Left; [...] RN | | Periph | Positive | Benjamín | | | eral | | | [...] + + + | Blood Pressure | 136/76 | 06/25/2012 12:48 PM | | | | | PST | | + + + + + | Pulse | 93 | 06/25/2012 12:48 PM | | | | | PST | | + + + + + | Temperature | 36.8 C (98.2 F) | 06/25/2012 12:48 PM | | | | | PST | | + + + + + | Respiratory Rate | 14 | 06/25/2012 12:48 PM | | | | | PST | | + + + + + | Oxygen Saturation | 98% | 06/25/2012 12:48 PM | | | | | PST | | + + + + + | Inhaled Oxygen | - | - | | | Concentration | | | | + + + + + | Weight | 64 kg (141 lb) | 06/25/2012 12:48 PM | | | | | PST | | + + + + + | Height | 165.1 cm (5' 5") | 06/25/2012 12:48 PM | | | | | PST | | + + + + + | Body Mass Index | 23.46 | 06/25/2012 12:48 PM | | | | | PST | | + + + + + documented in this encounter Patient Instructions Patient Instructions Ita Tidwell FNP - 06/25/2012 1:02 PM [facility] PREOPERATIVE INSTRUCTIONS Empty stomach before surgery! On the day BEFORE your surgery, drink plenty of fluids and stay well hydrated Do not eat or drink ANYTHING after midnight the night before surgery, or 8 hours prior t o surgery. This includes water, coffee, candy, mints, gum. Medications Instructions TAKE the following medications with a sip of water on the morning of surgery: Arimidex, atenolol, pulmicort, flonase, acidphex, dofetilide. Ultram tramadol as needed Do NOT take the following medications on the morning of surgery: Potassium, Other medications not specifically mentioned are at your discretion as to taking or not taking on the morning of surgery. anastrozole (ARIMIDEX) 1 mg Oral Tablet, Take [...] once daily. fluticasone (FLONASE) 50 mcg/actuation Nasal Madison, Suspension, Instill 1 Madison into each n ostril two times daily. [...] food VITAMIN D ORAL, 2000 IU daily Unless otherwise directed by your [...] preparation to help avoid surgical site infections On the morning of surgery, do not shave the area of skin where you will have surgery HIBICLENS GUIDE TO GENERAL SKIN CLEANSING AT HOME BEFORE SURGERY -- ONLY needed for p atients having surgical intervention below the neck! General Skin Cleansing Instructions: Hibiclens is not to be used on the head or face, keep out of the eyes, ears and mouth. Hibiclens is not to be used in the genital area. If this is the first time using Hibiclens, please perform an allergy test by placing 1-2 drops of soap on your forearm. Observe this area for 4-5 minutes. If you develop a rash, pl ease DO NOT use this product. Please inform the preop team on the morning of surgery so that this product is NOT used during your surgery. [...] as you would any other liquid soap. Apply directly to the skin and wa sh gently. Apply the minimum amount of Hibiclens necessary to cover the skin. Leave the Hib iclens on your skin for 1 minute, then rinse off. Rinse thoroughly with warm water. Towel dry with a clean towel. Dress in clean sleepwear and sleep on freshly laundered sheets. When using Hibiclens for a second day in a row (morning of surgery, as soon as you wake up) : Shower/bathe again using Hibiclens in the same method as described above and wear freshl y laundered clothes. Do not apply any lotions, deodorants, powders or perfumes to the body areas that have be en cleaned with Hibiclens. Preventing post op complications while you are [...] ask you to sit, stand or walk. Other Important Guidelines Do not shave the [...] before and the morning of your procedure. Surgery Check in Locations Admitting [facility] Surgery Check in Time: The Preoperative Medicine Clinic is NOT in the position to give you accurate [...] it is after office hours, call the [facility] flame annealing machine operator at [phone] and ask them to page documented in this encounter Progress Notes Ita Tidwell FNP - 06/25/2012 1:49 PM PSTFormatting of this note might be differe nt from the original. PREOPERATIVE CONSULT NOTE Consulting Provider: MAGGY SLADE Referring Physician: Kelsi Lopez MD Primary Care Provider: Latosha Ribera MD Reason for Consult: Preoperative evaluation and risk assessment Proposed Procedure/Date: RIGHT BREAST RECONSTRUCTION WITH TISSUE WATER AND SEWER SYSTEMS SUPERVISOR PLACEMENT AND POS SIBLE USE OF ALLODERMDate: 06/26/2012 HISTORY OF PRESENT ILLNESS: Adriana Flynn is a 66 y.o. female here for preoperative evaluat ion for above procedure. DIFFICULT IV ACCESS Well appearing 66 y F with history of atrial tachycardia maintained on antiarrhythmia med a nd atenolol. History of mitral valve prolapse diagnosed about 8 years ago in [place]. She was [facility] Dr. Fu[facility]/2012 for atypical chest tightness occuring at rest. H er stress echo supine bike was negative for ischemia Pt had recent onset of atrial fibrillation induced by days of vomiting and diarrhea. Treate d in ED ?[place]. Pt has not had any recurrent symptoms [...] does daily stretching and weig ht lifting She has no hx nor symptoms of CAD, CHF, CVA, CKD or DM (treated with insulin). Functional capacity is Intermediate ROS: 12 system ROS Preoperative Patient Questionnaire was reviewed with the patient. Pert inent positives are noted in HPI and PMHX. Document will be scanned in [employer]. Current Medication List Name Sig ANASTROZOLE 1 MG TABLET Take 1 Tab by mouth once daily. ATENOLOL 50 MG TABLET Take 25 mg by mouth two times daily. 1/2 tablet twice daily BUDESONIDE 180 MCG/ACTUATION BREATH ACTIVATED POWDER INHALER Inhale 2 Puffs once daily. CITRACAL + D 315 MG-200 UNIT TABLET 2 tabs in evening and liquid calcium citrate in AM DICLOFENAC 1 % TOPICAL GEL Apply to affected area three times daily. DOFETILIDE 500 MCG CAPSULE Take 1 Cap by mouth two times daily. EZETIMIBE 10 MG TABLET Take 10 mg by mouth once daily. FLUTICASONE 50 MCG/ACTUATION NASAL SPRAY, SUSP Instill 1 Madison into each nostril two times daily. GLUCOSAMINE SULFATE DIPOTASSIUM CHLORIDE 1,000 MG TABLET one daily METHYLCELLULOSE (LAXATIVE) ORAL POWDER Take by mouth. MULTIVITAMIN OR one daily POTASSIUM CHLORIDE ER 20 MEQ TABLET,EXTENDED RELEASE(PART/CRYST) Take 1 Tab by mouth once d aily. Please dispense as K-dur- other preparations do not get absorbed properly RABEPRAZOLE 20 MG TABLET,DELAYED RELEASE Take 20 mg by mouth once daily. TRAMADOL 50 MG TABLET Take 1 Tab by mouth every six hours as needed for moderate pain. ANTIOXIDANT FORMULA CAPSULE take 1 capsule by oral route once daily with food VITAMIN D ORAL 2000 IU daily Allergies Allergen Reactions Sulfa(Sulfonamide Antibiotics) Swelling-Facial Albuterol [...] Breast cancer 02/2007 s/p chemo with taxotere/cytoxan Nadia Past Surgical History Procedure Date Ectopic age 20 Appendectomy age 25 Removal adhesion Hysterectomy endometriosis, age 46 Bladder tie up age 51 Colon resection, diverticulitis 11/25/02 Pr removal gallbladder 04/07/03 Hernia repair 07/28/2003 Liver cyst ruptured 04/30/2004 Liver cyst removed 06/29/2004 Carpal tunnel release left wrist Punctum closed (eyes) 40 years old Sinus procedure 1989? Dr. Matt iHnojosa Hemorrhoidectomy 1991 Left leg veins 1991 Bunions/hammer toes/neuromas 1998,1999 Dr. Raymond Rose Heart ablation 12/16/2004,09/21/2005 Dr. Fuentes, [facility] Mastectomy Biopsy / excision / dissection axillary node Family History Problem Relation Diabetes Heart Disease Additional Family History Mother osteoporosis/hip fracture History Substance Use Topics Smoking status: Never Smoker Smokeless tobacco: Never Used Comment: nonsmoker/parents smoked Alcohol Use: No PHYSICAL EXAM: Last Vitals: BP 136/76 | Pulse 93 | Temp (Src) 36.8 C (98.2 F) (Oral) | RR 14 | Ht 1.65 1 m (5' 5") | Wt 63.957 kg (141 lb) | SpO2 98% | BMI 23.46 kg/(m^2) Body mass index is 23.46 kg/(m^2). [facility] ROS Last edited 06/25/12 1349 by MAGGY Dennis [...] No new medications given Stress TEST 02/2012 [facility] negative for ischemia Within Defined Limits except [...] prolapse diagnosed about 8 years ago in [place] Pt had recent onset of atrial fibrillation induced by days of vomiting and diarrhea. Treated in ED ?[place]. Pt has not had any recurrent symptoms [...] She does daily stretching and weight lifting LAB DATA REVIEWED/ORDERED type screen No results found for this basename: a1c Lab Results Component Value Date WBC 6.3 [...] Lab Results Component Value Date ABO B 03/14/2007 RH Positive 03/14/2007 No results found for this basename: a1c EKG: Personally reviewed, sinus addi rate 57. Prolonged QT (QTc 471). No change from previ ous ekg 02/2012 Stress ECHO supine bicycle negative for ischemia 02/2012 MEDICAL DECISION MAKIN ACC/ AHA Perioperative Guidelines 1. Need for emergency noncardiac surgery? b. No -> Proceed to next step. 2. Active Cardiac Conditions? These conditions mandate further investigation and manageme nt. A. Acute PA within 7 days: no B. Unstable angina/Recent PA (7- 30 days): no C. Decompensated CHF: [...] no Rate of cardiac , non fatal PA, non fatal cardiac arrest (RCRI) 0 risk factors - 0.4% 1 risk factors - 1%, 2 risk factors - 7%, 3 or >risk factors - 11% (may benefit from perioperative beta blockers) Risk Factor Recommendations: 0 risk factors- proceed with planned surgery Surgery Risk: Intermediate Patient-related risk: Estimated ASA class -- 2 ASSESSMENT and RECOMMENDATIONS: Surgical/anesthesia risk assessment: Adriana Flynn is a 66 y.o. female with diagnosis of Acquired absence of breast and nipple, scheduled for above. According to ACC/AHA, this dillon ent has no clinical risk factors and the recommendation is to proceed with planned surgery w ithout additional cardiac testing. Medication management recommendations: The patient was advised to continue all usual med ications except as noted in Patient Instructions (After Visit Summary given to pt) Perioperative antibiotic prophylaxis: Standard (Consider IV Vanco one hr before procedu re in pts with Cephalosporin/PCN allergy and/or with hx of MRSA) This patient is medically stable for surgery. Further testing/optimization is not needed. Thank you for the opportunity to contribute to this patient's care. MAGGY SLADE [facility] [address] [place] [id number] [id number] signed by MAGGY Dennis at 06/25/2012 2:06 PM PSTKomal Pollack MA - 06/25/2012 1:43 PM PST Venipuncture performed in clinic, blood sample obtained from Left antecubital site Electron ically signed by Komal Lewis MA at 06/25/2012 2:06 PM PSTdocumented in this encounte r Procedure Urvashi Strong, Faculty - 06/25/2012 3:01 PM PSTAssociated Order(s): PROCEDURE NOTEElectronically s igned by Faculty Other at 06/25/2012 3:01 PM PSTdocumented in this encounter Plan of [...] this | | | e | 12:21 AM | | procedure are in the | | | | PST | | results section. | + +--------+ + + + | TYPE AND SCREEN | Routin | 06/25/2012 | Other specified | Results for this | | | e | 4:18 PM | pre-operative | procedure are in the | | | | PST | examination | results section. | + +--------+ + + + | MA COLLECTION VENOUS | Routin | 06/25/2012 | Other specified | | | BLOOD,VENIPUNCTURE | e | 1:43 PM | pre-operative | | | | | PST | examination | | + +--------+ + + + | ANTIBODY SCREEN | Routin | 06/25/2012 | Other specified | Results for this | | | e | 1:00 PM | pre-operative | procedure are in the | | | | PST | examination | results section. | + +--------+ + + + | ABO & RH TYPE | Routin | 06/25/2012 | Other specified | Results for this | | | e | 1:00 PM | pre-operative | procedure are in [...] in this encounter Results PROCEDURE NOTE (08/20/2015 12:21 AM PST) + + | Transcriptions | + + | Other, Faculty - 06/25/2012 3:01 PM PST | + + ANTIBODY SCREEN (06/25/2012 1:00 PM PST) + + + + [...] | + + + + + | [facility] | [address] | [place] [address] | | | SERVICES, | [address] | | | | TRANSFUSION MEDICINE | | | | + + + + + ABO & RH TYPE (06/25/2012 1:00 PM PST) + + + + [...] + | [facility] | [address] | [place] [address] | | | BREANNA, | [address] | | | | TRANSFUSION MEDICINE | | | | + + + + + 12 LEAD ECG (06/25/2012 12:57 PM PST) + + + + + + | Component | Value | Ref Range | Performed | Pathologist | | | | | At | Signature | + + + + + + | VENTRICULAR | 57 | BPM | [facility] DEPT | | | RATE | | [...] view image for the detailed interpretation from [employer] results. | CARDIOLOGY | + + + + + + + + | Performing | Address | City/State/Zipcode | Phone Number | | Organization | | | | + + + + + | [facility] | [address] | [place], [place] | | | CARDIOLOGY | [address] | [address] | | + + + + + documented in this encounter Visit Diagnoses + + | Diagnosis | + + | Other specified pre-operative examination - Primary | + + documented in this encounter
--- OUTSIDE RECORDS SUMMARY | ~2020-05-04 | XMS | Encounter Summary ---
Demographics + + + | Address | [address] | | | [place] [address] | + + + | Home Phone [...] + | Gene Gee | ECON | [address] | | | | | [place], | | | | | [place] [address] | | + + + + + Care Team Providers + +------+ + | Care Finance Associate Name | Role | Phone | + +------+ + | Antony Ribera MD | PCP | | + +------+ + Encounter Details +--------+ + + + + | Date | Type | Department | Care Team | Description | +--------+ + + + + | 05/02/ | MyChart | Pulmonary & | Dez Hansen, | RE: Reaction to | | 2016 | Encounter | Critical Care | ,PhD [address] | brandon | | | | Medicine at | [facility] | | | | | Physicians [place] | [place], [place] | | | | | [address] | [address] | | | | | Loop Physician's | [phone] | | | | | [place], [facility] Floor | | | | | | [place], [place] | | | | | | [address] | | | | | | [phone] | | | +--------+ + + + [...]
--- OUTSIDE RECORDS SUMMARY | ~2020-05-04 | XMS | Encounter Summary ---
Demographics + + + | Address | [address] | | | [place] [address] | + + + | Home Phone [...] + | Gene Gee | ECON | [address] | | | | | [place], | | | | | [place] [address] | | + + + + + Care Team Providers + +------+ + | Care Automatic Developer Name | Role | Phone | + +------+ + | Antony Ribera MD | PCP | | + +------+ + Encounter Details +--------+ + + + + | Date | Type | Department | Care Team | Description | +--------+ + + + + | 06/30/ | MyChart | Cardiology | Monique Middleton, | RE: Medication | | 2010 | Encounter | Arrhythmia at [facility] | [address] | update | | | | [address] | | | | | | [place] for [facility] | | | | | | and Healing, | | | | | | Building | | | | | | Floor [place], [place] | | | | | | [address] | | | | | | [phone] | | | +--------+ + + + [...]
--- OUTSIDE RECORDS SUMMARY | ~2020-05-04 | XMS | Encounter Summary ---
Demographics + + + | Address | [address] | | | [place] [address] | + + + | Home Phone [...] + | Gene Gee | ECON | [address] | | | | | [place], | | | | | [place] [address] | | + + + + + Care Team Providers + +------+ + | Care Hydroelectric Machinery Mechanic Helper Name | Role | Phone | + +------+ + | Antony Ribera MD | PCP | | + +------+ + Encounter Details +--------+ + + + + | Date | Type | Department | Care Team | Description | +--------+ + + + + | 08/08/ | Documentati | Surgical Oncology | [facility], | | | 2007 | on | at [facility] [address] | [address] | | | | | [facility] | [place], [place] | | | | | Health and Healing, | [address] | | | | | [address] | [phone] | | | | | [place], [place] | | | | | | [address] | | | | | | [phone] | | | +--------+ + + + [...] Notes Telephone Encounter - Claribel Garza - 08/08/2007 11:36 AM PSTOrder for extension of PT fa xed to [place] at [phone]. Order signed by Dr. Heart. documented in this encounter Plan of Treatment Not on filedocumented as of this encounter Visit Diagnoses Not on filedocumented in this encounter"
--- OUTSIDE RECORDS SUMMARY | ~2020-05-04 | XMS | Encounter Summary ---
Demographics + + + | Address | [address] | | | [place] [address] | + + + | Home Phone [...] + | Gene Gee | ECON | [address] | | | | | [place], | | | | | [place] [address] | | + + + + + Care Team Providers + +------+ + | Care Senior Front End Developer Name | Role | Phone | + +------+ + | Antony Ribera MD | PCP | | + +------+ + Reason for Visit + +--------+ + | Reason | Onset | Comments | | | Date | | + +--------+ + | Refill Request | 07/25/ | | | | 2008 | | + +--------+ + Encounter Details +--------+--------+ + + + | Date | Type | Department | Care Team | Description | +--------+--------+ + + + | 07/25/ | Refill | Cardiology General | Monique Middleton, | Refill Request | | 2007 | | at [facility] [address] | HOME CARE ATTENDANT | | | | | [facility] | | | | | | Health and Healing, | | | | | | [facility] | | | | | | Floor [place], [place] | | | | | | [address] | | | | | | [phone] | | | +--------+--------+ + + + [...] Encounter - Monique Middleton Np - 07/25/2007 4:43 PM PSTShe called to report that her potassium is 3.3 Will add potassium replacement 20 meq besides eating more potassium f oods. Should have a recheck in about a week.Electronically signed by Monique Middleton Np at 0 07/25/2007 4:43 PM PSTdocumented in this encounter Plan of Treatment Not on filedocumented as of this encounter Visit Diagnoses Not on filedocumented in this encounter"
--- OUTSIDE RECORDS SUMMARY | ~2020-05-04 | XMS | Encounter Summary ---
Demographics + + + | Address | [address] | | | [place] [address] | + + + | Home Phone [...] + | Gene Gee | ECON | [address] | | | | | [place], | | | | | [place] [address] | | + + + + + Care Team Providers + +------+ + | Care Health Program Director Name | Role | Phone | [...] Meera | | | | Staff | [facility] [address] | [place] [address] | | | | | [facility] | [address], [address] | | | | | Health and Healing, | [address] [place], | | | | | [facility] [address] | [place] [address] | | | | | [place], [place] | | | | | | [address] | | | | | | [phone] | | | +--------+ + + + [...] | Blood Pressure | 118/64 | 08/15/2007 9:34 AM | | | | | PST | | + + + + + | Pulse | 74 | 08/15/2007 9:34 AM | | | | | PST | | + + + + + | Temperature | 36.2 C (97.1 F) | 08/15/2007 9:34 AM | | | | | PST | | + + + + + | Respiratory Rate | 12 | 08/15/2007 9:34 AM | | | | | PST | | + + + + + | Oxygen Saturation | - | - | | + + + + + | Inhaled Oxygen | - | - | | | Concentration | | | | + + + + + | Weight | 67.9 kg (149 lb 11.1 | 08/15/2007 9:34 AM | | | | oz) | PST | | + + + + + | Height | - | - | | + + + + + | Body Mass Index | 24.53 | 05/02/2007 2:06 PM | | | | | PDT | | + + + + + documented in this encounter Progress Livier Tamayo - 09/04/2007 9:28 AM PST Electronically signed by Livier Palacios at 2007 9:28 AM PSTdocumented in this encounter Miscellaneous Notes Stevan Hester - 08/15/2007 8:38 AM PSTAssociated Order(s): ORDERS OTHER Electron ically signed by Stevan Velazuqez at 08/15/2007 12:00 AM PSTdocumented in this encounter Plan of Treatment Not on filedocumented as of this encounter Procedures + +--------+ + + + | Procedure Name | Priori | Date/Time | Associated Diagnosis | Comments | | | ty | | | | + +--------+ + + + | ORDERS OTHER | | 08/15/2007 | | Results for this | | | | 8:38 AM | | procedure are in the | | | | PST | | results section. 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
--- OUTSIDE RECORDS SUMMARY | ~2020-05-04 | XMS | Encounter Summary ---
Demographics + + + | Address | [address] | | | [place] [address] | + + + | Home Phone | | + + + | Preferred Language | Unknown | + + + | Marital Status | | + + + | Judaism Affiliation | 1013 | + + + | Race | White | + + + | Ethnic Group | Not or | + + + Author + + + | Author | [facility] | | | and [place] | + + + | Organization | [facility] | | | [...] Team Providers + +------+ + | Care Workers Compensation Claims Examiner Name | Role | Phone | + +------+ + | Alec Hill MD | PCP | | + +------+ + Encounter Details +--------+---------+ + + + | Date | Type | Department | Care Team | Description | +--------+---------+ + + + | 12/23/ | Office | [facility] [place] | Ashly Goodson MS | Sensorineural | | 2019 | Visit | AUDIOLOGY AND | [facility] [address] | hearing loss (SNHL) | | | | [facility] | [address] | of both ears | | | | [address] | [place] [address] | (Primary Dx) | | | | [address] | [phone] | | | | | [place] [address] | | | | | | [phone] | | | +--------+---------+ + + + [...] documented as of this encounter Progress Notes Ashly Goodson, CCC-A - 12/23/2018 1:30 PM PDTReferring Provider: No additional provider found M.D. Ms. Flynn presents with a recent ear infection that was treated with antibiotics. Her ears are feeling better and she is able to hear more clearly. Results of Hearing Test: Right ear--Pure tone air and bone conduction testing showed a gent ly sloping 15-55dB threshold at 250 Hz through 8 KHz. Left ear --Pure tone air and bone conduction testing showed 20-65dB threshold at 250 Hz through 8 KHz. Speech Recognition Thresholds were 20dB in the right ear and 20dB in the left ear. Speech Discrimination Scores were 100% in right ear and 96% in the left ear. Tympanometry showed normal type A tracings in both ears. Impression and Recommendation: A bilateral mild sensory-neural hearing loss. Follow-up care with Dr. Juárez, ENT. Thank you. documented in thi s encounter Plan of Treatment +--------+ + + + + | Date | Type | Specialty | Care Team | Description | +--------+ + + + + | 05/19/ | Office | Orthopedic Surgery | Tee Choi, | | | 2019 | Visit | | MD [address] | | | | | | [place] [address] | | | | | | [phone] | | | | | | | | +--------+ + + + + | 05/19/ | Appointment | Cardiology | Martin Kelley, | | | 2019 | | | MD [address] | | | | | | [place] | | | | | | [place] [address] | | | | | | [phone] | | | | | | | | +--------+ + + + + | 11/26/ | Office | Cardiology | Martin Kelley, | | | 2020 | Visit | | MD [address] | | | | | | [place] | | | | | | [place] [address] | | | | | | [phone] | | | | | | | | +--------+ + + + + documented as of this encounter Procedures + +--------+ + + + | Procedure Name | Priori | Date/Time | Associated Diagnosis | Comments | | | ty | | | | + +--------+ + + + | DIAGNOSTIC REPORT - | | 12/23/2018 | | Results for this | | EXTERNAL SCAN | | 12:00 AM | | procedure are in the | | | | PDT | | results section. | + +--------+ + + + documented in this encounter Results DIAGNOSTIC REPORT - EXTERNAL SCAN (12/23/2018 12:00 AM PDT) + + + | Narrative | Performed At | + + + | Ordered by an | | | unspecified provider. | | + + + documented in this encounter Visit Diagnoses + + | Diagnosis | + + | Sensorineural hearing loss (SNHL) of both ears - Primary | + + documented in this encounter"
--- OUTSIDE RECORDS SUMMARY | ~2020-05-04 | XMS | Encounter Summary ---
Demographics + + + | Address | [address] | | | [place] [address] | + + + | Home Phone [...] + | Gene Gee | ECON | [address] | | | | | [place], | | | | | [place] [address] | | + + + + + Care Team Providers + +------+ + | Care Coach Cleaner Name | Role | Phone | + +------+ + | Antony Ribera MD | PCP | | + +------+ + Encounter Details +--------+ + + + + | Date | Type | Department | Care Team | Description | +--------+ + + + + | 04/07/ | Telephone | Digestive Health | Bob Reyna MD | | | 2007 | | [place] [facility] [address] | [address] | | | | | [address] | [place], [place] | | | | | for Health and | [address] | | | | | [facility], [facility] [address] | [phone] | | | | | [place], [place] | | | | | | [address] | | | | | | [phone] | | | +--------+ + + + [...] Notes Telephone Encounter - Madeline Krishna - 04/07/2008 12:48 PM PDTFrom Bob Reyna MD. Sent Apr 07, 2008 11:57 AM To Madeline Krishna Patient Adriana Flynn [[id number]] (: 1945) Message: Madeline, I just talked with the patient and she agrees that I don't need to see her for her bowel pr oblems. She says she at this time is having no liver issues. Therefore, please make sure thu t we cancel her appt with me and that she has an appt with Kush. Thanks. Sonu appt cancelled. elepho ne Encounter - Bob Reyna - 04/07/2008 11:05 AM PDTJo, Please tell patient that I would be seeing her for her liver issues and not her bowel issue s. This is why I would like her to see Dr. Currie so that her bowel questions can be answe red. elephone Encounter - Madeline Chaudhari - 04/07/2008 10:32 AM PDTAppt w/ Dr. Reyna is on 07/29/08. 2 CDs and outside rec ords given to Glendy VARGAS. Mariza Lindquist is trying to coordinate same-day appts with Dr. Reyna and Collins Currie. I called and spoke to pt. D/c'ed from [facility] on 04/06. Informed pt that we are trying to co ordinate same-day appts with Dr. Reyna and Dr. Currie. She states she saw surgeons, Dr. Chung cardoso and Dr. Pop, while in the hosp. She states, "I don't think another surgeon needs to be involved. No one wants to do surgery. I don't want surgery." She requests to speak w/ Dr. Reyna personally. She wants to know what she can do, eat, exercise, etc, to prevent this f rom happening again. elemelquiadeso ne Encounter - Donna Gooden - 04/07/2008 9:05 AM PDTCarol, has an appointment on 07/29 bu in the mean time she went to the ER 08/01/07, patient had new CT scan and found new obstruc tion and also had x-rays, she does not know if she should still keep her appt on the 07/29/07 documented in this encount er Plan of Treatment Not on filedocumented as of this encounter Visit Diagnoses Not on filedocumented in this encounter
--- OUTSIDE RECORDS SUMMARY | ~2020-05-04 | XMS | Encounter Summary ---
Demographics + + + | Address | [address] | | | [place] [address] | + + + | Home Phone [...] + | Gene Gee | ECON | [address] | | | | | [place], | | | | | [place] [address] | | + + + + + Care Team Providers + +------+ + | Care Pourer Crane Ladle Name | Role | Phone | + [...] | | | | | [facility] | [place], [place] | [id number] | | | | | AM, ADULT | [id number] | Outpatient | | | | | | Phone: | Clinic | | | | | | [phone] | Building | | | | | | Fax: | [place], [place] | | | | | | [phone] | [address] | | | | | | | Phone: | | | | | | | [phone] | +--------+--------+ + + + + Reason for Visit Office Visit - E/M Services (Routine) +--------+--------+ + + + + | Status | Reason | Specialty | Diagnoses / | Referred By | Referred To | | | | | Procedures | Contact | Contact | +--------+--------+ + + + + | Closed | | Cardiology | | Bacilio, | Gary Fuentes, | | | | | | Antony | [address] | | | | | | MD Saman | [address] [place] | | | | | | [place] | [address] | | | | | | INTERNAL | [place], [place] | | | | | | MEDICINE | [address] Phone: | | | | | | [address] | [phone] | | | | | | [facility] | Fax: | | | | | | [address] | [phone] | | | | | | [place], | | | | | | | [place] [address] | | | | | | | Phone: | | | | | | | [phone] | | | | | | | Fax: | | | | | | | [phone] | | +--------+--------+ + + + + Encounter Details +--------+---------+ + + + | Date | Type | Department | Care Team | Description | +--------+---------+ + + + | 02/14/ | Office | Cardiology | Gary Fuentes MD | Chest pain (Primary | | 2011 | Visit | Arrhythmia at [facility] | [address] | Dx); Atrial | | | | [address] | [address] [place], | tachycardia [address] | | | | Tow for [place] | [place] [address] | | | | | and Healing, | [phone] | | | | | | | | | | | Floor [place], [place] | | | | | | [address] | | | | | | [phone] | | | +--------+---------+ + + + [...] + + + | Blood Pressure | 132/78 | 02/15/2012 11:11 AM | | | | | PDT | | + + + + + | Pulse | 71 | 02/15/2012 11:11 AM | | | | | PDT | | + + + + + | Temperature | 36.6 C (97.9 F) | 02/15/2012 11:11 AM | | | | | PDT | | + + + + + | Respiratory Rate | - | - | | + + + + + | Oxygen Saturation | 99% | 02/15/2012 11:11 AM | | | | | PDT | | + + + + + | Inhaled Oxygen | - | - | | | Concentration | | | | + + + + + | Weight | 64.5 kg (142 lb 4.8 | 02/15/2012 11:11 AM | | | | oz) | PDT | | + + + + + | Height | 165.7 cm (5' 5.25") | 02/15/2012 11:11 AM | | | | | PDT | | + + + + + | Body Mass Index | 23.5 | 02/15/2012 11:11 AM | | | | | PDT | | + + + + + documented in this encounter Patient Instructions Patient Instructions Gary Fuentes MD - 02/15/2012 11:42 AM PDTOverall you are doing well. We will perform a stress echo to evaluate your chest pain. I will see you back in 6 monthsElec tronically signed by Gary Fuentes MD at 02/15/2012 11:43 AM PDT documented in this encounter Progress Notes Gary Fuentes MD - 02/15/2012 11:29 AM PDT Adriana Flynn is a 66 y.o. female who presents for follow-up of atrial arrhythmias. Since I last saw her she has had problems with chest pain which tends to occur more at rest, but no t with activity. Pain is described as a non-radiating chest tightness which lasts about a mi nute.She is concern because she has a family history of CAD on her mother's side. She had some skipped heart beats during a recent episode of sinusitis, but otherwise has do ne well. Review of Systems: Current Outpatient Prescriptions Medication Sig anastrozole (ARIMIDEX) [...] AM CHOLESTYRAMINE, WITH SUGAR, ORAL Take by mouth as needed. Diclofenac Sodium (VOLTAREN) 1 % Topical Gel Apply to affected area three times daily. DOFETILIDE 500 mcg Oral Capsule Take 1 Cap by mouth two times daily. Glucosamine 1,000 mg Oral [...] D ORAL 2000 IU daily Objective: BP 132/78 | Pulse 71 | Temp (Src) 36.6 C (97.9 F) (Oral) | Ht 165.7 cm (5' 5.25") | Wt 64.547 kg (142 lb 4.8 oz) | SpO2 99% | BMI 23.50 kg/(m^2) General: healthy, alert and cooperative Neck: negative. Cardiac: PMI normal. No lifts, heaves, or thrills. RRR. Heart sounds normal. No murmurs, clicks or gallops.. Respiratory: clear bilaterally Extremities: warm and no peripheral edema Labs: Lab Results Component Value Date NA 141 11/23/2011 K 4.6 11/23/2011 CL 107 11/23/2011 BICARB 27 11/23/2011 BUN 11 11/23/2011 CR 0.67 11/23/2011 GLU 83 11/23/2011 CA 9.5 11/23/2011 MG 1.9 06/21/2011 PO4 3.9 10/17/2011 URICACID 4.5 10/17/2011 AST 36 11/23/2011 ALT 30 11/23/2011 AP 69 11/23/2011 DIRBILI 0.1 10/17/2011 TBILI 0.9 11/23/2011 ALB 4.0 11/23/2011 Lab Results Component Value Date CHOL 172 10/17/2011 LDL 113 10/17/2011 HDL 45 10/17/2011 TRI 72 10/17/2011 Lab Results Component Value Date WBC 6.2 10/17/2011 HB 14.1 10/17/2011 HCT 43.0 10/17/2011 PLT 160 10/17/2011 MCV 91.6 10/17/2011 RDW 13.7 10/17/2011 Assessment/Plan: Patient is doing well with regard to her atrial arrhythmias. Her chest pain is somewhat aty pical, but in view of her family history, we will perform a stress echo to exclude CAD. RTC 6months documented in t his encounter Procedure Notes Other, Faculty - 02/27/2012 3:54 PM PDTAssociated Order(s): STRESS EXERCISE ECHOCARDIOGRAM , ADULT documented in this e ncounter Miscellaneous Notes Scan - Other, Faculty - 04/10/2012 11:18 AM PDTElectronically signed by Faculty Other at 11:18 AM PDTdocumented in this encounter Plan of [...] + documented in this encounter Results STRESS EXERCISE ECHOCARDIOGRAM, ADULT (02/27/2012 12:00 AM PDT) + + + | Narrative | Performed At | + + + | | | + + + + + | Transcriptions | + + | Gisele Strong - 02/27/2012 3:54 PM PDT | + + documented in this encounter Visit Diagnoses + + | Diagnosis | + + | Chest pain - Primary Chest pain, unspecified | + + | Atrial tachycardia 427.89 Other specified cardiac dysrhythmias | + + documented in this encounter
--- OUTSIDE RECORDS SUMMARY | ~2020-05-04 | XMS | Encounter Summary ---
Demographics + + + | Address | [address] | | | [place] [address] | + + + | Home Phone [...] + | Gene Gee | ECON | [address] | | | | | [place], | | | | | [place] [address] | | + + + + + Care Team Providers + +------+ + | Care Solar Tech Name | Role | Phone | + +------+ + | Antony Ribera MD | PCP | | + +------+ + Reason for Visit + +--------+ + | Reason | Onset | Comments | | | Date | | + +--------+ + | Discharge From | 06/21/ | | | Nipple | 2008 | | + +--------+ + Encounter Details +--------+ + + + + | Date | Type | Department | Care Team | Description | +--------+ + + + + | 06/21/ | Telephone | Surgical Oncology | [facility], | Discharge From | | 2008 | | at [facility] [address] | MD [address] | Nipple | | | | Ave Center for | [place], [place] | | | | | Health and Healing, | [address] | | | | | [address] | [phone] | | | | | [place], [place] | | | | | | [address] | | | | | | [phone] | | | +--------+ + + + [...] Telephone Encounter - Claribel Garza RN - 06/21/2009 10:[address] Sly garcía spontaneous nipple discharge. He said if it cannot be reproduced, that she should not be c oncerned and it is not suspicious for cancer. Spoke with patient who said that it has not re ooccured since we spoke. Time spent 5 minutes. Electronically signed by SAM Ibarra 06/21/2009 10:12 AM PSTdocumented in this encounter Plan of Treatment Not on filedocumented as of this encounter Visit Diagnoses Not on filedocumented in this encounter"
--- OUTSIDE RECORDS SUMMARY | ~2020-05-04 | XMS | Encounter Summary ---
Demographics + + + | Address | [address] | | | [place] [address] | + + + | Home Phone [...] + | Gene Gee | ECON | [address] | | | | | [place], | | | | | [place] [address] | | + + + + + Care Team Providers + +------+ + | Care Resource Paraprofessional Name | Role | Phone | + +------+ + | Alec Hill MD | PCP | | + +------+ + Encounter Details +--------+ + + + + | Date | Type | Department | Care Team | Description | +--------+ + + + + | 09/22/ | Hospital | Registration [id number] | Gary Fuentes MD | | | 2005 | Activity | [facility] | [address] | | | | | [address] Mailcode: [id number] | [facility] [address] [place], | | | | | [place], [place] | [place] [address] | | | | | [address] | [phone] | | | | | [phone] | | | +--------+ + + + [...]
--- OUTSIDE RECORDS SUMMARY | ~2020-05-04 | XMS | Encounter Summary ---
Demographics + + + | Address | [address] | | | [place] [address] | + + + | Home Phone [...] + | Gene Gee | ECON | [address] | | | | | [place], | | | | | [place] [address] | | + + + + + Care Team Providers + +------+ + | Care Certified Driver Examiner Name | Role | Phone | [...] | Encounter | Critical Care | [address] | | | | | Medicine at | [facility], | | | | | [facility] | [place] [address] | | | | | [address] | [phone] | | | | | [address] [facility] | | | | | | [place], [address] [place] [address] | | | | | | [place], [place] | | | | | | [address] | | | | | | [phone] | | | +--------+ + + + [...]
--- OUTSIDE RECORDS SUMMARY | ~2020-05-04 | XMS | Encounter Summary ---
Demographics + + + | Address | [address] | | | [place] [address] | + + + | Home Phone [...] + | Gene Gee | ECON | [address] | | | | | [place], | | | | | [place] [address] | | + + + + + Care Team Providers + +------+ + | Care Curriculum Counselor Name | Role | Phone | + +------+ + | Alec Hill MD | PCP | | + +------+ + Encounter Details +--------+ + + + + | Date | Type | Department | Care Team | Description | +--------+ + + + + | 02/09/ | MyChart | John Rudolph | Tapan Horowitz MD | RE: DEXA scan | | 2019 | Encounter | [facility] | [address] | results | | | | [facility] | [address] [place], | | | | | [address] | [place] [address] | | | | | [address] | [phone] | | | | | [facility] | | | | | | Physician's | | | | | | [place], | | | | | | [place] [address] | | | | | | [phone] | | | +--------+ + + + [...]
--- OUTSIDE RECORDS SUMMARY | ~2020-05-04 | XMS | Encounter Summary ---
Demographics + + + | Address | [address] | | | [place] [address] | + + + | Home Phone [...] + | Gene Gee | ECON | [address] | | | | | [place], | | | | | [place] [address] | | + + + + + Care Team Providers + +------+ + | Care Correspondence Specialist Name | Role | Phone | + +------+ + | Antony Ribera MD | PCP | | + +------+ + Encounter Details +--------+---------+ + + + | Date | Type | Department | Care Team | Description | +--------+---------+ + + + | 09/29/ | Office | Pulmonary & | Thalia Laboy, | Sinusitis (Primary | | 2015 | Visit | Critical Care | [facility] | Dx) | | | | Medicine at | [facility] | | | | | [facility] | [address] | | | | | [address] | [address] [place], | | | | | [facility] | [place] [address] | | | | | [address], [facility] Floor | [phone] | | | | | [place], [place] | | | | | | [address] | | | | | | [phone] | | | +--------+---------+ + + + [...] + + + | Blood Pressure | 139/58 | 09/29/2014 2:23 PM | | | | | PDT | | + + + + + | Pulse | 62 | 09/29/2014 2:23 PM | | | | | PDT | | + + + + + | Temperature | 36.5 C (97.7 F) | 09/29/2014 2:23 PM | | | | | PDT | | + + + + + | Respiratory Rate | 12 | 09/29/2014 2:23 PM | | | | | PDT | | + + + + + | Oxygen Saturation | 100% | 09/29/2014 2:23 PM | | | | | PDT | | + + + + + | Inhaled Oxygen | - | - | | | Concentration | | | | + + + + + | Weight | 65.5 kg (144 lb 6.4 | 09/29/2014 2:23 PM | | | | oz) | PDT | | + + + + + | Height | 167.1 cm (5' 5.79") | 09/29/2014 2:23 PM | | | | | PDT | | + + + + + | Body Mass Index | 23.46 | 09/29/2014 2:23 PM | | | | | PDT | | + + + + + documented in this encounter Patient Instructions Patient Instructions Thalia Laboy Md - 09/29/2014 2:43 PM PDTWhat is my diagnosis/What am I being treated for? -asthma, chronic sinus congestion What is my plan for today s visit (what tests I have to do when I leave, how am I suppose d to use my medications)? - increase to twice a day inhaled steroid in the tough seasons- particularly planning to do this around 2-3 weeks before problem times. Increase it to twice daily now with allergy sea son coming - keep doing the sinus rinses, fluticasone - try ipratropium in the nose when having extra congestion. If this works, request refills from Dr. Ribera. This can also become a chronic medication that you use daily if you don't hav e any side effects What needs to happen for my condition to improve/resolve? - keep using inhalers and keep sinus disease under control What is the name of the doctor I saw today? -THALIA LABOY MD We do not need to schedule you back in pulmonary clinic at this point since your disease an d plan are going well. If your breathing worsens, please discuss with Dr. Ribera and we are bhakta ppy to see you back if things worsen. How do I get in touch with the doctor(s) in case I have a question? -Call [phone] For more pressing concerns, call our office. In the event of an medical emergency you shou nuria call 911 or present to the nearest Emergency Room. documented in this encounter Progress Notes Virginia Medina MD - 10/07/2014 10:19 AM PDTI performed a history and physical examinat ion of the patient and discussed his management with the fellow. I reviewed the fellow's no te and agree with the documented findings and plan of care. VIRGINIA MEDINA MD PULMONARY [facility]ACULT[facility] [address] [place] [address] Thalia Hudson Md - 09/28/2014 1:20 PM PDT Date: 09/28/2014 Primary Care Provider: Antony Ribera MD [facility] [address] [facility] [address] [place] [address] Referring Provider: Antony Ribera MD [facility] [address] [facility] [address] [place] [address] Display Progress Note in MyChart: Yes Adriana Flynn is a 69 y.o. female in pulmonary clinic today for the follow up of Asthma and s inus congestion PULMONARY PROBLEM LIST: # Asthma- -- prev on inhaled Pulmicort, increased exacerbations when weaned down to lower dose; tried switching to fluticasone 01/26 due to lactose in pulmicort -- cannot use long acting beta agonist due to history of episodes of SVT with use -- never smoker - ACT: January 2014 = 21 -> 23 on 09/27 # Sinusitis- generally allergic, worse in the summer - saw ENT 25 years ago and "cleaned everything out." - takes cetirizine daily - uses occasional nose spray when plugged up, including afrin (only 1-2 days in a row) - has netti pot, but doesn't feel like it gets into frontal sinuses. Uses for a week when g ets congestion initially - increased to daily netti pot use 01/26 which she was still doing at 09/27 - increased to daily fluticasone nasal spray 01/26, still doing at 09/27 visit - previously had been using pseudophed, but has cut back due to heart issues - starting nasal ipratropium 09/27 # Nodules- Multiple sub 5 mm pulmonary nodules on chest CT since 2008 (hx R br CA 07- T1cN0 M0, RISA 09/27) -- patient elected not to continue with surveillance imaging after 11/2010 due to radiation exposure -- had additional CT scan 12/27 due to concern of "mass" seen on CXR whic showed no change i n nodules since 2010 (outside image in [employer]) # Pulmonary embolism, identified on CTA 09/17/08, s/p warfarin x 6 months # Sjogren's syndrome- no pulm complications to date, CT chest 12/27 normal # GERD - well-controlled on aciphex BID, worsens if late night snacking - s/p pH probe testing showed no significant acid reflux and 0% cough related to reflux wyatt nts Assessment: 69 y.o. Woman with improved asthma control on current therapy. Her sinuses were a major dri yajaira and control of this seems to have improved significantly though is not perfect. We will start her on nasal ipratropium as she notes some worsening congestion. If this helps, she ca n request further refills from us or from her PCP. Her ACT in January was 21, today it is 23, a nd she can likely continue ongoing follow-up with her PCP. We are happy to see her back in p monary clinic if needed, but for now will not plan on routine follow-up. Plan: Continue flonase as well as sinus rinses Nasal ipratropium start Plan to increase back to BID pulmicort regularly now as spring season is coming and has been bad previously Should have Prevnar 13 as over the age of 65, also should have received pneumovax at [facility] [place]. Patient can have these done with PCP RTC if patient or Dr Ribera would like our further input or if symptoms worsen ----- Subjective: Ms Flynn is a 69 y.o. Woman with hx of Sjogrens, seasonal allergies and asthma who we have followed for several years in pulmonary clinic. At her last visit in January, her sinuses were bothering her a great deal, and we focused on aggressive sinus control, with da yin rinses, daily steroid spray, and we also changed her bedesonide to fluticasone as she no dean concern about lactose allergy. Since her last visit, she has seen cardiology for her atrial arrhythmias, which had been in creased in setting of stressors. She was advised to take extra atenolol for those symptoms. She says she has been changed to metoprolol with improvement in palpitations. Return visit t o evaluate and discuss ablation. Today, she reports her breathing is overall doing pretty well. She is hardly using her medi cations at all, but does notice that on cloudy days, things are difficult. She is using the pulmicort once per day, but then if things are bad, will go up to twice per day. Recently no ticed some nocturnal coughing. She has noted to us previously that she gets a bad sinus problem that goes to her lungs wyatt ry 3-6 months. 1. In the past 4 weeks, how much time did your asthma keep you from getting as much done at work, school, or home? 5 - None of the time 2. During the past [...] or nebulizer medica tion (such as albuterol)? 5 - Not at all 5. How would you rate your asthma control during the past 4 weeks? 5 - Completely controll ed Total Score: 23 Score ?20 - well controlled Score ? 19 - not well controlled 10/22/2012 Spirometry FEV1/FVC ratio 65% ->73% post [employer] FVC 2.69/82% FEV1 1.75/70% -> 1.91/76%-9% increase Ped Pre Spirometry Latest Ref Rng 10/22/2012 FVC PRE 3.30 Liters 2.69 FVC PRE (%REF) - 82 FEV1 PRE 2.51 Liters 1.75 FEV1 PRE (%REF) - 70 FEV1/FVC PRE 76 % 65 TIK81-75% PRE 2.07 L/sec 0.89 HMU22-33% PRE (%REF) - 43 PEF PRE 6.06 L/sec 6.52 PEF PRE (%REF) - 108 Imaging: Lab Results Component Value Date CXR Value: STUDY: ABD ACUTE 3 VIEWS & PA CHEST 10/31/09 15:34:00 [id number] ACUTE 3 VIEWS & PA CHEST 10/31/09 15:34:00 COMPARISON: Abdomen from 04/01/2008. FINDINGS: Surgical cli ps are identified in the right axilla, consistent with axillary node dissection. The right breast is surgically absent. Heart size and mediastinal contours are within normal limits. The lungs are clear. There is no pleural effusion or pneumothorax. Surgical clips are iden tified in the right upper quadrant, suggestive of prior cholecystectomy. Air intermixed wit h stool is identified within the nondistended large bowel and rectum. Multiple loops of bow el are closely approximated to each other in the left upper quadrant, with evidence of bowel wall thickening, seen on the supine view only; it is uncertain whether this is small bowel or potentially strictured large bowel. There is no evidence of free intraperitoneal gas or abnormal abdominal calcification. The soft tissues and osseous structures are unremarkable. IMPRESSION: No evidence of bowel obstruction or perforation. Bowel wall thickening in the left upper quadrant involving jejunum versus the colon. Recommend follow-up abdominal x-ray in one to two days. I have personally viewed this procedure/exam and reviewed this report . Author: MIREYA MCKEON MD Reviewer: MIREYA MCKEON MD STATUS FINAL / Dr. JACINTO MCKEON 10/31/2009 CT CHEST WO CONTRAST (no units) Date Value Ref Range Status 11/17/2010 Final Value: EXAM: CT chest without contrast. 11/17/2010. HISTORY: Evaluate [...] newer nodules. Attending Radiologists: Stuart Colindres M.D. Author: Ki Cruz M.D. I have personally viewed this procedure/exam, reviewed this report, and made changes to it where appropriate. Final/Electronically signed / Stuart Colindres 11/18/2010 8:[address] CTA CHEST W CONTRAST (no units) Date Value Ref Range Status 09/17/2008 Final Value: STUDY:CTA chest with additional expiratory phase images 09/17/08 10:14:00 INDICATION: 62 year-old female with Sjogren's and pulmonary hypertension, which has recently worsened by echocardiogram evaluation. Evaluate for thromboembolic disease and interstitial lung disease. COMPARISON: Chest radiograph 04/19/2007 and partial comparison to abdominal CT 04/02/2008. TECHNIQUE: Following administration of 100 mL Visipaque IV contrast, helical CT with overlapping 2 mm images was performed through the chest per PE protocol. Subsequently, an additional scan was performed through the chest in expiration. Inspiratory and expiratory images were reviewed with 2 mm image thickness and 20 mm spacing. Oblique coronal reconstructions were created for more detailed evaluation of the pulmonary vasculature. FINDINGS: The study is technically adequate for evaluation of pulmonary emboli to the subsegmental level. There is nonocclusive thrombus in the right interlobar artery as it bifurcates to form the right middle and right lower lobar arteries. The morphology of the thrombus suggests that it is subacute to chronic. There is no evidence of right heart strain. The main pulmonary artery is within normal limits for size, measuring approximately 2.5 centimeters. The heart and great vessels otherwise appear normal. There has been prior right mastectomy and axillary dissection. The lungs demonstrate minimal bibasilar atelectasis but no focal area of consolidation. There is a collection of nodules in the left lower lobe, the largest measuring 4 mm, image 45 on lung algorithm. This finding is more conspicuous than on prior studies. On expiratory phase images, there is demonstration of mild peripheral patchy air trapping without anna bronchiectasis or airway thickening. Limited evaluation of the upper abdominal structures reveals no acute process. There are multiple low-density lesions in the liver, consistent with simple cysts, which are unchanged since the recent abdominal CT. The common bile duct is enlarged, as before, measuring up to 1.4 cm in diameter. No destructive osseous lesion is identified. IMPRESSION: 1. Nonocclusive pulmonary embolus at the [...] evaluation may be considered as clinically indicated. I have personally viewed this procedure/exam and reviewed this report. Author: JORDYN BEYER M.D. Reviewer: JULES OVALLE M.D. STATUS FINAL / Dr. JULES OVALLE STATUS PENDING FINAL APPROVAL / Dr. JORDYN BEYER STATUS PRELIMINARY - UNSIGNED / Dr. JORDYN BEYER Current Medications: Current Outpatient Prescriptions Medication Sig [...] ophthalmic dropperette 1 drop 3 Times Daily CEVIMELINE 30 mg oral capsule DOFETILIDE 500 mcg oral capsule Take 1 [...] mouth. metoprolol tartrate 50 mg oral tablet 1 tablet twice a day; may increase to 2 tablets t wice a day if needed MULTIVITAMIN OR one daily potassium chloride SR 20 mEq Oral tablet,ER particles/crystals Take 1 Tab by mouth once daily. rabeprazole (ACIPHEX) 20 mg Oral Tablet, Delayed Release (E.C.) Take 20 mg by mouth wyatt ry twelve hours. RESTASIS 0.05 % Ophthalmic Dropperette 1 drop two times daily. Vitamin A-Vitamin C-Vit E-Min (ANTIOXIDANT FORMULA) Oral Capsule take 1 capsule by oral route once daily with food VITAMIN D ORAL 2000 IU daily No current facility-administered medications for this visit. Patient Active Problem List: Asthma[] Extrinsic asthma, unspecified[493.00] History of DVT (deep vein thrombosis)[V12.51] Skin lesion[709.9] Thyroid nodule[241.0] Comment: May 2011 US: Scattered sub-cm nodules December 2008 US: 5 mm Right cyst Other Pulmonary Embolism and Infarction[415.19] Sjogren's Syndrome[710.2] Dyspnea[786.09] Breast Cancer[174.9] Osteopenia[733.90] Comment: Devaughn DXA 06/06/13; L -1.6 H -1.9 DXA 04/28/11: L -1.8 H -1.8 DXA 01/27/10: L -1.9 H -1.6 DXA 12/28/08: L -1.9 H -1.5 Lymphedema[457.1] Nausea with Vomiting[787.01] Encounter for Antineoplastic Chemotherapy[V58.11] Acquired Absence of Breast[V45.71] 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 Fuentes, [facility] Mastectomy Biopsy / excision / dissection axillary node Medications: Current Outpatient Prescriptions Medication Sig albuterol [...] ophthalmic dropperette 1 drop 3 Times Daily CEVIMELINE 30 mg oral capsule DOFETILIDE 500 mcg oral capsule Take 1 [...] mouth. metoprolol tartrate 50 mg oral tablet 1 tablet twice a day; may increase to 2 tablets t wice a day if needed MULTIVITAMIN OR one daily potassium chloride SR 20 mEq Oral tablet,ER particles/crystals Take 1 Tab by mouth once daily. rabeprazole (ACIPHEX) 20 mg Oral Tablet, Delayed Release (E.C.) Take 20 mg by mouth wyatt ry twelve hours. RESTASIS 0.05 % Ophthalmic Dropperette 1 drop two times daily. Vitamin A-Vitamin C-Vit E-Min (ANTIOXIDANT FORMULA) Oral Capsule take 1 capsule by oral route once daily with food VITAMIN D ORAL 2000 IU daily No current facility-administered medications for this visit. Allergies: Sulfa (sulfonamide antibiotics); Albuterol; Cardizem; Celebrex; Ciprofloxacin; C larification needed; Crestor; Flecainide acetate; Kapidex; Lactose; Propafenone; Triamterene -hydrochlorothiazid; and Tape adherent Past Social and Family History: No significant changes since last visit. Review of systems: As above. All other reviews other negative or unchanged from previous vi sit. Physical Exam: Visit Vitals Item Reading BP 139/58 Pulse 62 Temp 36.5 C (97.7 F) RR 12 Ht 1.671 m (5' 5.79") Wt 65.5 kg (144 lb 6.4 oz) SpO2 100% BMI 23.46 kg/(m^2) Oxygen: ROOM AIR (12/29/08 1013) General: No acute distress, otherwise unchanged from previous exam. SHANON: Normocephalic, anicteric sclerae, EOMI, external ears without lesions Nares: no rhinorrhea. Throat: No erythema, exudate, or tonsillar enlargement. Neck: No evidence of elevated jugular veins or lymphadenopathy. Lungs: Clear to auscultation bilaterally, no wheezes, rhonchi or crackles. Cardiac: regular rate and rhythm No murmurs, rubs or gallops. Abdomen: Non-tender, non-distended. Extremities: No cyanosis, clubbing, or edema. Musculoskeletal: No obvious joint deformities noted. Skin: No evidence of rash or skin changes. Lymph nodes: No other lymphadenopathy detected. Neurologic: Exam grossly non-focal. Alert, oriented Psych: Appropriate, normal speech Immunization History Administered Date(s) Administered Influenza, split 04/17/2008 I have seen and discussed this patient with Dr. Medina, who agrees with my assessment and pl an. THALIA LABOY MD PULMONARY & CRITICAL CARE MEDICINE AT [address] Mailcode: [id number] [place] [id number] documented in this en counter Plan of Treatment Not on filedocumented as of this encounter Visit Diagnoses + + | Diagnosis | + + | Sinusitis - Primary Unspecified sinusitis (chronic) | + + documented in this encounter
--- OUTSIDE RECORDS SUMMARY | ~2020-05-04 | XMS | Encounter Summary ---
Demographics + + + | Address | [address] | | | [place] [address] | + + + | Home Phone [...] + | Gene Gee | ECON | [address] | | | | | [place], | | | | | [place] [address] | | + + + + + Care Team Providers + +------+ + | Care Mechanical Developer Prover Name | Role | Phone | + +------+ + | Antony Ribera MD | PCP | | + +------+ + Encounter Details +--------+ + + + + | Date | Type | Department | Care Team | Description | +--------+ + + + + | 02/04/ | Electric Sealing Machine Operator | Cardiology | Gary Fuentes MD | Atrial tachycardia | | 2014 | | Arrhythmia at [facility] | [address] | ([facility]) (Primary Dx) | | | | [address] | [address] [place], | | | | | [place] [facility] | [place] [address] | | | | | and Healing, | [phone] | | | | | [facility] | | | | | | [address], [place] | | | | | | [address] | | | | | | [phone] | | | +--------+ + + + [...] LEAD ECG | ECG | Routin | Atrial tachycardia | Ordered: 02/04/2015 | | | | e | (HCC) | | + +------+--------+ + + documented as of this encounter Visit Diagnoses + + | Diagnosis | + + | Atrial tachycardia (HCC) - Primary Other specified cardiac dysrhythmias | + + documented in this encounter"
--- OUTSIDE RECORDS SUMMARY | ~2020-05-04 | XMS | Encounter Summary ---
Demographics + + + | Address | [address] | | | [place] [address] | + + + | Home Phone [...] + | Gene Gee | ECON | [address] | | | | | [place], | | | | | [place] [address] | | + + + + + Care Team Providers + +------+ + | Care Supervisor Accounting Clerks Name | Role | Phone | + +------+ + | Antony Ribera MD | PCP | | + +------+ + Encounter Details +--------+ + + + + | Date | Type | Department | Care Team | Description | +--------+ + + + + | 10/21/ | MyChart | Plastic and | Errol Gold | next appt. for | | 2012 | Encounter | Reconstructive | MD Manda [address] | hematoma in left | | | | Surgery at [facility] [address] | breast | | | | [address] [facility] | [address] [place], [place] | | | | | for Health and | [address] | | | | | [place] [address], | | | | | | [address]th [facility] | | | | | | [place], [place] | | | | | | [address] | | | | | | [phone] | | | +--------+ + + + [...] Telephone Encounter - Simran Roque MA - 10/21/2012 11:13 AM PDTSpoke with Miss Flynn offered her a sooner appointment per Santiago Quijano PA-C. She informed me that worked b est for her. She was added to Santiago Quijano PA-C schedule. Next Appointment in [facility] is on 10/24/12 at 10:40 am with Santiago Quijano PA-C. documented in this encounter Plan of Treatment Not on filedocumented as of this encounter Visit Diagnoses Not on filedocumented in this encounter"
--- OUTSIDE RECORDS SUMMARY | ~2020-05-04 | XMS | Encounter Summary ---
Demographics + + + | Address | [address] | | | [place] [address] | + + + | Home Phone [...] + | Gene Gee | ECON | [address] | | | | | [place], | | | | | [place] [address] | | + + + + + Care Team Providers + +------+ + | Care Geriatric Social Work Professor Name | Role | Phone | + +------+ + | Antony Ribera MD | PCP | | + +------+ + Encounter Details +--------+ + + + + | Date | Type | Department | Care Team | Description | +--------+ + + + + | 07/23/ | Abstract | Cardiology | Elijah Whalen, | | | 2018 | | Arrhythmia at [facility] | [address] | | | | | [address] | [address] | | | | | [facility] | [place], [place] | | | | | and Healing, | [address] | | | | | [facility] | [phone] | | | | | Floor [place], [place] | | | | | | [address] | | | | | | [phone] | | | +--------+ + + + [...]
--- OUTSIDE RECORDS SUMMARY | ~2020-05-04 | XMS | Encounter Summary ---
Demographics + + + | Address | [address] | | | [place] [address] | + + + | Home Phone [...] + | Gene Gee | ECON | [address] | | | | | [place], | | | | | [place] [address] | | + + + + + Care Team Providers + +------+ + | Care Application Developer Manager Name | Role | Phone | [...] Closed | | Gastroenterol | Diagnoses | Nai, | [facility] | | | | ogy | Other | MD Navin | [facility] [address] | | | | | pulmonary | [address] | [address] | | | | | embolism and | [address] | [place] | | | | | infarction | [address] | [facility], [address]th | | | | | Procedures | [place], [place] | floor | | | | | CONSULT TO | [address] | [place], [place] | | | | | GI PROCEDURE | Phone: | [phone] | | | | | UNIT: | [phone] | Phone: | | | | | COLONOSCOPY | Fax: | [phone] | | | | | | [phone] | Fax: | | | | | | | [phone] | +--------+--------+ + + + + Reason for Visit +--------+--------+ + | Reason | Onset | Comments | | | Date | | +--------+--------+ + | Other | 09/30/ | last lower GI study date | | | 2008 | | +--------+--------+ + Encounter Details +--------+ + + + + | Date | Type | Department | Care Team | Description | +--------+ + + + + | 09/30/ | Telephone | Pulmonary & | Ruth Hernandez, | Other (last lower GI | | 2009 | | Critical Care | MD | study date) | | | | Medicine at | | | | | | [facility] | | | | | | [address] | | | | | | [address] [facility] | | | | | | [facility], 3rd Floor | | | | | | [place], [place] | | | | | | [address] | | | | | | [phone] | | | +--------+ + + + [...] this encounter Miscellaneous Notes Telephone Encounter - Tana Orr - 09/30/2008 2:17 PM PDTCarol J Gee [id number] Message: Pt called to say it has been 6 years (since Aug 2002) since she has had a lower GI test, and her doctor would like another one done here. LAST APPOINTMENT: 09/08/08 at 3:15 pm LAST PCP (Antony Ribera MD) APPOINTMENT: No past encounter found with . NEXT APPOINTMENT: 12/15/08 at 3:15 pm NEXT PCP (Antony Ribera MD) APPOINTMENT: No future appointments scheduled with . Patient's pharmacy has been verified: Yes documented in this encounte r Plan of Treatment Not on filedocumented as of this encounter Visit Diagnoses + + | Diagnosis | + + | Other pulmonary embolism and infarction - Primary | + + documented in this encounter"
--- OUTSIDE RECORDS SUMMARY | ~2020-05-04 | XMS | Encounter Summary ---
Demographics + + + | Address | [address] | | | [place] [address] | + + + | Home Phone [...] + | Gene Gee | ECON | [address] | | | | | [place], | | | | | [place] [address] | | + + + + + Care Team Providers + +------+ + | Care Mine Technician Name | Role | Phone | + +------+ + | Alec Hill MD | PCP | | + +------+ + Reason for Visit +--------+--------+ + | Reason | Onset | Comments | | | Date | | +--------+--------+ + | Other | 12/09/ | Change of Pharmacy | | | 2020 | | +--------+--------+ + Encounter Details +--------+ + + + + | Date | Type | Department | Care Team | Description | +--------+ + + + + | 12/09/ | Telephone | Pulmonary & | Juana Kilgore MD | Other (Change of | | 2019 | | Critical Care | [address] [facility] | Pharmacy) | | | | Medicine at | [address], | | | | | [facility] | [place] [address] | | | | | [address] | [phone] | | | | | [facility] | | | | | | [place], [facility] Floor | | | | | | [place], [place] | | | | | | [address] | | | | | | [phone] | | | +--------+ + + + [...] Telephone Encounter - Juana Kilgore MD - 12/10/2019 5:30 PM PDTreordered in refill encoun ter elephone Encounter - Felicita Corcoran - 12/10/2019 2:27 PM PDTInbound call from Adriana Flynn : 08/17. Callback number [phone] Calling requesting to send prescription for ipratropium 0.02 % inhalation solution to: [facility] [address], [place] [address] Please make this pharmacy the patient's primary pharmacy. documented in this encounter Plan of Treatment Not on filedocumented as of this encounter Visit Diagnoses Not on filedocumented in this encounter"
--- OUTSIDE RECORDS SUMMARY | ~2020-05-04 | XMS | Encounter Summary ---
Demographics + + + | Address | [address] | | | [place] [address] | + + + | Home Phone [...] + | Gene Sahil | ECON | [address] | | | | | [place], | | | | | [place] [address] | | + + + + + Care Team Providers + +------+ + | Care Keymodule Assembly Supervisor Name | Role | Phone | + +------+ + PCP | Unavailable | + +------+ + Encounter Details +--------+ + + + + | Date | Type | Department | Care Team | Description | +--------+ + + + + | 07/07/ | Discharge | | Summary, Discharge | D/C Summary ODDS | | 2004 | Summary-Tra | | | | | [...] as of this encounter Discharge Summaries Interface, Shot Packer In - 02/12/2005 1:36 AM PDT [id number] SAHIL AGUILAR Manda Admission Date: 06/29/2004 Discharge Date: 07/07/2004 Staff Physician: Katie Callahan M.D. Principal Final Diagnosis: Symptomatic hepatic cysts. Additional Diagnosis: Supraventricular tachycardia. Principal Procedure: Marsupialization of multiple hepatic cysts on June 29, 2004. Additional Procedure: Ager Operator of an amiodarone drip for supraventricular tachycardia. Reason for Admission: Hospital Course: The patient initially did well postoperatively, then we planned for transfer to the [facility] from the ICU on postoperative day #1. However, the patient developed SVT at a rate of 200 to 240 beats a minute. Initially, the patient's systolic blood pressure was 68 which rapidly improved to 110. The patient did have a history of tachyarrhythmias and was taking atenolol at home, and beta blockade had not been restarted postoperatively due to hypotension. The patient was maintaining normally throughout this episode, and we were able to convert her tachycardia into a normal rhythm using IV beta blockers and an amiodarone drip. Our initial goal was to transfer the patient to the [facility] if she continued to have a normal rhythm and to discontinue her telemetry and to change her amiodarone drip to p.o. amiodarone with p.o. atenolol. However, on postoperative day #4, it was noted that the patient had had another run of SVT overnight and her amiodarone drip had to be restarted. She did have GI continuity with positive flatus. No bowel movement. Her systolic blood pressures were running from 115 to 150. Cardiology was consulted, and we transferred the patient to telemetry as she did not really have any current ICU needs. Cardiology noted that her echo and EKG strips were consistent with ectopic atrial tachycardia. We also noted that the patient appeared to be slightly volume long. She did have a chest x-ray which showed bilateral pleural effusions, right greater than left, and did have an oxygen requirement at the time of transfer to telemetry. The recommendations included diuresing the patient, switching to oral amiodarone, digoxin loading the patient, and transitioning the patient to lower doses of p.o. amiodarone after she was stabilized. The patient's epidural anesthesia was discontinued on postoperative day #5. She was transitioned easily to oral pain medication. She was discharged to home on postoperative day #8, July 07, 2004. Physical Exam General: She was alert and oriented x4. Heart: Regular rate and rhythm. Lungs: Clear to auscultation bilaterally. Skin: Her incision was clean, dry, and intact without erythema. Abdomen: Soft and incision line up machine operator to palpation, otherwise no tenderness to palpation. Extremities: Did not have any edema. Condition on Discharge: Good. Discharge Medication(s): Digoxin 0.25 mg p.o. q.day, amiodarone 200 mg p.o. q.day, oxycodone 5 to 15 mg p.o. q.3 h. p.r.n. pain, #60, and Keflex 500 mg p.o. daily x4 more days. Discharge Instruction(s): Discharge diet, regular. Light duty restrictions and normal diet. Return to clinic to see Dr. Callahan in 2 weeks and follow up with Dr. Fuentes in Cardiology. Renu Ontiveros M.D. Katie Callahan M.D. Director Call Center Sales Division of Liver and Pancreas Transplantation / [id number] / [id number] / [id number] / Electronically signed by Katie Callahan 10-11-2004 06:19:47 PM documented i n this encounter Plan of Treatment Not on filedocumented as of this encounter Visit Diagnoses Not on filedocumented in this encounter"
--- OUTSIDE RECORDS SUMMARY | ~2020-05-04 | XMS | Encounter Summary ---
Demographics + + + | Address | [address] | | | [place] [address] | + + + | Home Phone [...] + | Gene Gee | ECON | [address] | | | | | [place], | | | | | [place] [address] | | + + + + + Care Team Providers + +------+ + | Care Painting Contractor Name | Role | Phone | + [...] | | | | | | | [facility] [place] | | | | | | | [address] | | | | | | | Phone: | | | | | | | [phone] | | | | | | | Fax: | | | | | | | [phone] | +--------+ + + + + + Encounter Details +--------+---------+ + + + | Date | Type | Department | Care Team | Description | +--------+---------+ + + + | 05/02/ | Office | Surgical Oncology | Luís Heart, | Carcinoma in situ of | | 2011 | Visit | at [facility] [address] | MD [address] | breast; Breast | | | | [facility] | [place], [place] | cancer (HCC) | | | | Health and Healing, | [address] | | | | | Building [address] | [phone] | | | | | [facility] [place] | | | | | | [address] | | | | | | [phone] | | | +--------+---------+ + + + [...] + + + | Blood Pressure | 122/80 | 05/02/2012 3:32 PM | | | | | PDT | | + + + + + | Pulse | 72 | 05/02/2012 3:32 PM | | | | | PDT | | + + + + + | Temperature | 36.6 C (97.8 F) | 05/02/2012 3:32 PM | | | | | PDT | | + + + + + | Respiratory Rate | 16 | 05/02/2012 3:32 PM | | | | | PDT | | + + + + + | Oxygen Saturation | - | - | | + + + + + | Inhaled Oxygen | - | - | | | Concentration | | | | + + + + + | Weight | 65.7 kg (144 lb 12.8 | 05/02/2012 3:32 PM | | | | oz) | PDT | | + + + + + | Height | - | - | | + + + + + | Body Mass Index | 23.55 | 04/29/2012 11:25 AM | | | | | PDT | | + + + + + documented in this encounter Progress Notes Luís Heart MD - 05/02/2012 4:36 PM RICK performed a history and physical examination of the patient and discussed her management with the resident. I reviewed the resident s note and agree with the documented findings and plan of care. She has no evidence of diseas e on H and P or left mammogram. She is going to proceed with right breast reconstruction in late May. I'll see her back in 1 year with left mammogram. LU[facility]S [facility] MD software technician Division of Surgical Oncology [facility] [id number], [place] [address] Mathew Awad M D - 05/02/2012 3:09 PM PDT The Department of Surgery Clinic Follow-Up Visit: Author: Mathew Shepherd MD R-1 Attending Physician: Sly 05/02/2012, 3:09 PM ID: Adriana Flynn is a 66 y.o. 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 INTERVAL HISTORY: Mrs. Flynn is here today for her yearly follow-up. [facility] any [facility] lesions. Denies any skin changes, retractions, nipple di scharge, or lumps. She does admit to occasional itchiness of her L breast. Denies weight los s. Denies fevers/chills. Admits to intermittent problems with lymphedema, specifically tende rness along the medial aspect of her elbow. She has not consistently used her sleeve in over 2 years. Patient has decided to pursue R breast implant reconstruction with L breast symmet ry. She is schedule for this operation the Sunday after Thanksgiving this year with Dr. Ameena shah. Patient is still on arimidex. Her oncologist, Dr. Velazquez has left his practice here so she is going to see Dr. Watt in 2 weeks and is planning to discuss whether she still ne eds to be on arimidex or not. OBJECTIVE: Vitals: There were no vitals filed for this visit. Physical Exam: Physical Exam: General: Alert and oriented, NAD HEENT: Sclerae anicteric, EOMI, TMs clear bilaterally Respiratory: Unlabored, CTA throughout CV: RRR; no JVD Breast: s/p R mastectomy, well healed scar, L breast without any palpable masses, no skin c hanges or nipple discharge Abdomen: soft, nondistended, appropriately tender, well healed abdominal scar from previous liver surgery Extremities: Warm and well perfused, no peripheral edema PERTINENT LABS/STUDIES: [place] DIGITAL MAMMO DIAG LEFT: May 02, 2012 - CC, MLO, and XCCL view(s) were taken of the left breast. Prior study comparison: July 20, 2011, [place] DIGITAL MAMMO DIAG LEFT w/CAD. June 30, 2010, [place] DIGITAL MAMMO DIAG LEFT w/CAD. There are scattered fibroglandular densities. The patient is status post right mastectomy. No suspicious calcifications, masses, or architectural distortion present in the left breast. ASSESSMENT: Negative - Category 1 RECOMMENDATION: Routine screening mammogram of the left breast in 1 year. Attending Radiologists: Raymond Corbin M.D. Author: Raymond Corbin M.D. I have personally viewed this procedure/exam, reviewed this report, and made changes to it where appropriate. Final/Electronically signed / Raymond Corbin 05/02/2012 15:04 PM ASSESSMENT: This is Adriana Flynn, a 66 y.o. Female with history of R breast invasive ductal carcinoma s/p R total mastectomy with R axillary SLNB and subsequent completion axillary lymph node di ssection and adjuvant chemotherapy with taxotere/cytoxan currently on arimidex. No evidence of recurrence today. PLAN: 1. Follow-up in 1 year with screening mammogram of L breast 2. Return to clinic: as above or PRN for any questions/concerns Dr. Heart has seen and examined the patient and agrees with the above plan. Signed: Mathew Shepherd MD R-1, General Surgery Pager: [phone] [facility] Department of Surgery documented in this encounter Plan of Treatment Not on filedocumented as of this encounter Visit Diagnoses + + | Diagnosis | + + | Carcinoma in situ of breast | + + | Breast cancer (HCC) Malignant neoplasm of breast (female), unspecified site | + + documented in this encounter"
--- OUTSIDE RECORDS SUMMARY | ~2020-05-04 | XMS | Encounter Summary ---
Demographics + + + | Address | [address] | | | [place] [address] | + + + | Home Phone [...] + | Gene Gee | ECON | [address] | | | | | [place], | | | | | [place] [address] | | + + + + + Care Team Providers + +------+ + | Care Ship Officer Name | Role | Phone | + +------+ + | Antony Ribera MD | PCP | | + +------+ + Encounter Details +--------+ + + + + | Date | Type | Department | Care Team | Description | +--------+ + + + + | 03/03/ | MyChart | Pulmonary & | Thalia Barnard, | RE: Update of | | 2013 | Encounter | Critical Care | MD [facility] | inhaler usage | | | | Medicine at | [facility] | | | | | [facility] | [address] | | | | | [address] | [address] [place], | | | | | [facility] | [place] [address] | | | | | [address] | [phone] | | | | | [place], [place] | | | | | | [address] | | | | | | [phone] | | | +--------+ + + + [...]
--- OUTSIDE RECORDS SUMMARY | ~2020-05-04 | XMS | Encounter Summary ---
Demographics + + + | Address | [address] | | | [place] [address] | + + + | Home Phone [...] + | Gene Gee | ECON | [address] | | | | | [place], | | | | | [place] [address] | | + + + + + Care Team Providers + +------+ + | Care Cryptographic Center Specialist Name | Role | Phone | + +------+ + | Antony Ribera MD | PCP | | + +------+ + Encounter Details +--------+ + + + + | Date | Type | Department | Care Team | Description | +--------+ + + + + | 07/30/ | Telephone | Cardiology General | Monique Middleton, | | | 2008 | | at [facility] [address] | MICHAEL | | | | | [facility] | | | | | | Health and Healing, | | | | | | Building | | | | | | Floor [place], [place] | | | | | | [address] | | | | | | [phone] | | | +--------+ + + + [...] Telephone Encounter - Monique Middleton Np - 07/30/2008 4:47 PM PSTCalled to discuss some ne w symptoms. She has noticed increased shortness of breath--thought it was her asthma but sa w her lung dr who said it was not her lungs. When she is short of breath her heart is beati ng harder also but it is not racing. On day felt a hard flip-flopping beat that s cared her. None since then. Last night had a hard chest pain that lasted no more than 2 mi nutes. Episodes occur early in am but is able to be active with shoveling snow and housewor k at times. Will plan to see her when she comes to [place] for a visit.Electronically sign ed by Monique Middleton Np at 07/30/2008 4:55 PM PSTdocumented in this encounter Plan of Treatment Not on filedocumented as of this encounter Visit Diagnoses Not on filedocumented in this encounter"
--- OUTSIDE RECORDS SUMMARY | ~2020-05-04 | XMS | Encounter Summary ---
Demographics + + + | Address | [address] | | | [place] [address] | + + + | Home Phone [...] + | Gene Gee | ECON | [address] | | | | | [place], | | | | | [place] [address] | | + + + + + Care Team Providers + +------+ + | Care Radar Tester Name | Role | Phone | [...] | | 2007 | | Oncology at [facility] | MD [address] | | | | | [address] | [facility] [place] | | | | | Mailcode: [facility] | [address] | | | | | [facility] | [phone] | | | | | and Healing, | | | | | | [facility] | | | | | | Floor [facility] [place] | | | | | | [address] | | | | | | [phone] | | | +--------+ + + + [...] Telephone Encounter - Mireya Cruz Rn - 05/22/2008 10:33 AM PSTPrescription faxed as re quested. elephone Curtis cruz - Jenny Moody - 05/22/2008 9:47 AM PSTMarti from [employer] called. Patient has just registered with their program and she was calling to get a RX for Arrimidex faxed over to the pharmacy. [email or web address] signed by Jenny Moody at 05/22/2008 9:47 AM PSTdocum ented in this encounter Plan of Treatment Not on filedocumented as of this encounter Visit Diagnoses Not on filedocumented in this encounter"
--- OUTSIDE RECORDS SUMMARY | ~2020-05-04 | XMS | Encounter Summary ---
Demographics + + + | Address | [address] | | | [place] [address] | + + + | Home Phone [...] + | Gene Gee | ECON | [address] | | | | | [place], | | | | | [place] [address] | | + + + + + Care Team Providers + +------+ + | Care Furnace Charging Machine Operator Name | Role | Phone [...] | | | | | MEDICINE | [address] Phone: | | | | | | [address] | [phone] | | | | | | [facility] | Fax: | | | | | | [address] | [phone] | | | | | | [place], | | | | | | | [place] [address] | | | | | | | Phone: | | | | | | | [phone] | | | | | | | Fax: | | | | | | | [phone] | | +--------+--------+ + + + + Encounter Details +--------+---------+ + + + | Date | Type | Department | Care Team | Description | +--------+---------+ + + + | 12/26/ | Office | Cardiology | Gary Fuentes MD | Atrial tachycardia | | 2012 | Visit | Arrhythmia at [facility] | [address] | 427.89 (Primary Dx) | | | | [address] | [address] [place], | | | | | [facility] | [place] [address] | | | | | and Healing, | [phone] | | | | | Building | | | | | | Floor [place], [place] | | | | | | [address] | | | | | | [phone] | | | +--------+---------+ + + + [...] + + + | Blood Pressure | 124/86 | 12/26/2012 3:00 PM | | | | | PDT | | + + + + + | Pulse | 65 | 12/26/2012 3:00 PM | | | | | PDT | | + + + + + | Temperature | 36.8 C (98.2 F) | 12/26/2012 3:00 PM | | | [...] Weight | 64.4 kg (142 lb) | 12/26/2012 3:00 PM | | | | | PDT | | + + + + + | Height | 167.6 cm (5' 6") | 12/26/2012 3:00 PM | | | | | PDT | | + + + + + | Body Mass Index | 22.92 | 12/26/2012 3:00 PM | | | | | PDT | | + + + + + documented in this encounter Patient Instructions Patient Instructions Ivet Matthews DO - 12/26/2012 3:26 PM PDTIt was nice to meet you today . I am sorry to hear about your sharp chest pain. Please consider keeping a diary when this occurs to try and figure out a trigger. You can also try taking some TUMS if it is really samir thering you. Please follow up with Dr. Fuentes in one year ( we will get an EKG at that time). We did not make any changes to your medications today. documented in this encounter Progress Notes Gary Fuentes MD - 12/26/2012 10:11 PM PDTATTENDING NOTE: I saw and evaluated Ms. Flynn with Dr. Matthews. Management discussed in detail. I agree with the findings, assessment and plan of care as per Dr. Matthews's note. atel , Ivet - 12/26/2012 5:28 PM PDT EP/Cardiology Clinic Office Visit on 12/26/2012 with Gary Fuentes PCP is Latosha Ribera MD ID and Chief Complaint: Adriana Flynn is a 67 y.o. female with a history of atrial tachycardi a (EP study without ablation 2005), right breast cancer ([id number] s/p mastectomy & XRT), GERD , Sjogren's Syndrome, Multiple SBO's, hx of PE 2008 who comes in today for routine follow up of atrial tachycardia History from Today's Visit: Reports having 3 isolated episodes of left sided non radiating sharp chest pain lasting fro m seconds to minutes NOT associated with SOB, diaphoresis or nausea over the last 1.5 weeks. However states she has trouble taking a deep breath in when she has the pain. She is very a ctive at baseline works out at the gym 3x/week (weights, stretching) and rides stationary bi ke 2x/week for 30 minutes and does not experience chest pain while working out. She had a [facility] Exercise Stress TTE in 02/2012 (normal LV function). Last episode occurred at night an d cannot state if CP is related to meals. On aciphex for GERD and is scheduled for PH study in 1-2 weeks. Also, experiencing increased life stressors. No orthopnea, PND, RAY. Continue s to have intermittent palpitations that have not increased in frequency or severity. Denies having chest pain with the palpitations. No lightheadedness, syncope. Current Medications: atenolol 50 mg Oral Tablet, Take 25 mg by mouth two times daily. 1/2 tablet twice daily budesonide (PULMICORT FLEXHALER) 180 mcg/actuation Inhalation Aerosol Powdr Breath Activate d, Inhale 3 Puffs two times daily. calcium [...] once daily. fluticasone (FLONASE) 50 mcg/actuation Nasal [place], Suspension, Instill 1 [place] into each n ostril two times daily. [...] 20 mg by mouth every twelve hours. Vitamin A-Vitamin C-Vit E-Min (ANTIOXIDANT FORMULA) Oral Capsule, take 1 capsule by oral ro curyung once daily with food VITAMIN D ORAL, 2000 IU daily Filed Vitals: 12/26/2012 3:00 PM Height: 1.676 m (5' 6") Weight: 64.411 kg (142 lb) BP: 124/86 Pulse: 65 Temp: 36.8 C (98.2 F) TempSrc: Oral PainSc: 0 - Zero BMI: 22.93 kg/(m^2) General: AOX3 in NAD Neck: JVP 7 cm Chest: CTABL, breathing unlabored CV: RRR no murmurs Ext: wwp, no RAY, dpi. Exercise Stress TTE Final Impressions: 1. At rest there is normal left ventricular systolic function. 2. Echo negative for ischemia. 3. EKG negative for ischemia. Low risk stress echo in a patient who achieved >85% MAPHR and no inducible ischemia A/P: 67 y.o. female with a history of atrial tachycardia (EP study without ablation 2005), right breast cancer ([id number] s/p mastectomy & XRT), GERD, Sjogren's Syndrome, Multiple SBO' s, hx of PE 2008 presents with isolated episodes of left sided chest pain. #chest pain: most likely noncardiac chest pain based on clinical history. Pt had a negative exercise stress TTE 02/2012 which is reassuring. Suspect it may be related to her underlying GERD however instructed her to continue to monitor and if it becomes more severe or frequen t to contact her PCP for further work up. #atrial tachycardia: LA origin on EP study 2005 (no ablation performed). Pt is minimally sy mptomatic with intermittent palpitations however she is able to perform her ADLs without aguayo itation. > Continue atenolol 25 mg BID, dofetilide 500 mcg BID > follow up in one year or sooner if needed The history, findings, diagnoses and treatment plan that I have documented were reviewed wi at the time of this visit. Dr. Fuentes agrees that my assessment, plan and services provided are appropriate. Ivet Matthews DO PGY-2 Internal Medicine Pgr [id number] documented in this encoun ter Plan of Treatment Not on filedocumented as of this encounter Visit Diagnoses + + | Diagnosis | + + | Atrial tachycardia 427.89 - Primary Other specified cardiac dysrhythmias | + + documented in this encounter
--- OUTSIDE RECORDS SUMMARY | ~2020-05-04 | XMS | Encounter Summary ---
Demographics + + + | Address | [address] | | | [place] [address] | + + + | Home Phone [...] + | Gene Gee | ECON | [address] | | | | | [place], | | | | | [place] [address] | | + + + + + Care Team Providers + +------+ + | Care Gold Leaf Printer Name | Role | Phone | + [...] Description | +--------+---------+ + + + | 02/03/ | Office | Pulmonary & | Thalia Laboy, | Sinusitis (Primary | | 2014 | Visit | Critical Care [facility]x); Asthma, | | | | Medicine at | Pulmonary [place] | moderate persistent, | | | | [facility] | [address] | uncomplicated | | | | [address] | [address] [place], | | | | | [facility] | [place] [address] | | | | | Pavilion, 3rd Floor | [phone] | | | | | [place], [place] | | | | | | [address] | | | | | | [phone] | | | +--------+---------+ + + + [...] + + + | Blood Pressure | 135/73 | 02/03/2014 2:42 PM | | | | | PDT | | + + + + + | Pulse | 72 | 02/03/2014 2:42 PM | | | | | PDT | | + + + + + | Temperature | 35.8 C (96.4 F) | 02/03/2014 2:42 PM | | | | | PDT | | + + + + + | Respiratory Rate | 20 | 02/03/2014 2:42 PM | | | | | PDT | | + + + + + | Oxygen Saturation | 100% | 02/03/2014 2:42 PM | | | | | PDT | | + + + + + | Inhaled Oxygen | - | - | | | Concentration | | | | + + + + + | Weight | 65.3 kg (144 lb) | 02/03/2014 2:42 PM | | | | | PDT | | + + + + + | Height | 166.1 cm (5' 5.4") | 02/03/2014 2:42 PM | | | | | PDT | | + + + + + | Body Mass Index | 23.67 | 02/03/2014 2:42 PM | | | | | PDT | | + + + + + documented in this encounter Patient Instructions Patient Instructions Evon Buchanan, Thalia [place] - 02/03/2014 3:47 PM PDTFormatting of this note m ight be different from the original. Patient Instructions- the sinuses are the root of your evil. Let's try to work on them prio r to adding additional inhaled therapy, particularly because you had trouble with the rapid heart rate previously - do saline rinses (netti pot) once daily, increase to three times daily if starting to hav e sinus trouble. Try doing it in the shower! - use fluticasone one puff intranasally daily after sinuses dry post rinse - okay to increase fluticasone to 2 puffs BID in nose for 1 week when having trouble with s inuses - take cetirizine when having allergies - change from pulmicort to fluticasone due to lactose - try albuterol with a spacer when have cough or voice changes # keep a diary of your symptoms - one side, date, time of day, symptoms - other side, medications, what they did ONE OF THE BEST WAYS TO USE INHALERS IS TO SEE THEM DEMONSTRATED. Visit Use-Inhalers.Sonora Leather fo r instructions on how to use them. This site has information on how to troubleshoot, and you can download apps for your phone or Ipad as well. Saline Nasal Washes: After Your Visit Your Care Instructions Saline nasal washes help keep the nasal passages open by washing out thick or dried mucus. This simple remedy can help relieve symptoms of allergies, sinusitis, and colds. It also can make the nose feel more comfortable by keeping the mucous membranes moist. You may notice a little burning sensation in your nose the first few times you use the solution, but this us ually gets better in a few days. Follow-up care is a witt part of your treatment and safety. Be sure to make and go to all ap pointments, and call your doctor if you are having problems. It s also a good idea to know your test results and keep a list of the medicines you take. How can you care for yourself at home? You can buy premixed saline solution in a squeeze bottle or other sinus rinse products a t a drugstore. Read and follow the instructions on the label. You also can make your own saline solution by adding 1 teaspoon of salt and 1 teaspoon o f baking soda to 2 cups of distilled water. If you use a homemade solution, pour a small amount into a clean bowl. Using a rubber bu lb syringe, squeeze the syringe and place the tip in the salt water. Pull a small amount of the salt water into the syringe by relaxing your hand. Sit down with your head tilted slightly back. Do not lie down. Put the tip of the bulb s yringe or the squeeze bottle a little way into one of your nostrils. Gently squirt a small a mount (about 1 teaspoon) into the nostril. Repeat with the other nostril. Some sneezing and gagging are normal at first. Gently blow your nose. Wipe the syringe or bottle tip clean after each use. Repeat this 2 or 3 times a day. Use nasal washes gently if you have nosebleeds often. When should you call for help? Watch closely for changes in your health, and be sure to contact your doctor if: You often get nosebleeds. You have problems doing the nasal washes. Where can you learn more? To learn more about "Saline Nasal Washes: After Your Visit", log into your [employer] account at [email or web address]. You can enter B784 in the [employer] Library" search box. Not on [employer])? Review the AuditFilehart section of your After Visit Summary for directions on ho w to sign up. [id number] [employer]. Care instructions adapted under license by [facility] [facility] [employer]. This care instruction is for use with your licensed healthcar e professional. If you have questions about a medical condition or this instruction, always ask your healthcare professional. [employer] disclaims any warranty or liabili ty for your use of this information. Content Version: [id number]; Last Revised: August 28, 2011 documented in this encounter Progress Notes Virginia Medina MD - 02/18/2014 10:45 PM PDTI performed a history and physical examinat ion of the patient and discussed his management with the fellow. I reviewed the fellow's no te and agree with the documented findings and plan of care. VIRGINIA MEDINA MD [facility] [address] [facility] [address] [address] Becca Buchanan, Thalia [place] - 02/02/2014 2:41 PM PDT Date: 02/02/2014 Primary Care Provider: Antony Ribera MD [facility] [address] [place] [id number] Referring Provider: No referring provider defined for this encounter. Display Progress Note in AuditFilehart: Yes Adriana Flynn is a 68 y.o. female in pulmonary clinic today for the follow up of Abnormal sp st radiograph, Asthma and Pulmonary Nodule. PULMONARY PROBLEM LIST: # Asthma- -- prev on inhaled Pulmicort, increased exacerbations when weaned down to lower dose; tried switching to fluticasone 01/26 due to lactose in pulmicort -- cannot use long acting beta agonist due to history of episodes of SVT with use -- never smoker # Sinusitis- generally allergic, worse in the summer - saw ENT 25 years ago and "cleaned everything out." - takes cetirizine daily - uses occasional nose spray when plugged up, including afrin (only 1-2 days in a row) - has netti pot, but doesn't feel like it gets into frontal sinuses. Uses for a week when g ets congestion - increase to daily netti pot use 01/26 - increase to daily fluticasone nasal spray 01/26 - not supposed to take pseudophed due to heart issues, but does sometimes # Nodules- Multiple sub 5 mm pulmonary nodules on chest CT since 2008 -- patient elected not to continue with surveillance imaging after 11/2010 due to radiation exposure -- had additional CT scan 12/27 due to concern of "mass" seen on CXR whic hshowed no change in nodules since 2010 # Pulmonary embolism, identified on CTA 09/17/08, s/p warfarin x 6 months # Sjogren's syndrome # GERD - well-controlled on aciphex BID, worsens if late night snacking - s/p pH probe testing showed no significant acid reflux and 0% cough related to reflux wyatt nts Assessment: 68 y.o. Woman w/ hx of Sjogrens, seasonal allergies and asthma with predominant trigger rel ated to sinuses, resulting in around 4 bad exacerbations per year. Chest CT without concerni ng mass, no evidence of other Sjogren's related parenchymal disease. Will now focus on aggre ssive sinus control, with daily rinses, daily steroid spray and also try changing from budes onide to fluticasone as patient reports allergy to lactose (which is noted to be in budesoni de). Unclear if this will be of benefit, but likely worthwhile to evaluate. Plan: Continue intermittent pseudophed as allowed by cardiology Start daily saline rinses for sinus control Daily fluticasone after rinses, increase to BID if having congestion Continue cetirizine when having sinus congestion Changing from budesonide to fluticasone 220 inhaler 2 puffs BID to see if has improved c ontrol without lactose element Keep asthma and sinus diary to evaluate control at next visit Pneumovax and Tdap up to date per patient Subjective: Ms Flynn is a 68 y.o. Woman with hx of seasonal allergies and asthma, previous ly followed by Mary Gee and Michaelle. She was last seen 10/[address] Gee, at which time s he was bothered by nocturnal cough, which was attributed to GERD despite aciphex therapy as well as sinus congestion and post nasal drip. She had increased to 3 puffs BID of prednisone from 2 puffs since had improved previously on systemic steroids. Dr Gee advised that she follow up with ENT and possibly GI with pH probe testing, which showed no significant acid r eflux and 0% cough related to reflux events. She had a CXR in December at [facility] that reported a lung mass, but on our review , we were not sure if this was simply a confluence of shadows, and advised a noncontrast sp st CT, which showed no significant change in her older, known small nodules. Today, she reports her breathing is okay. She has times when she gets short of breath, part icularly since it's allergy season where she is. However, every 3-6 months, she gets sinus c ongestion and headache that moves down into her lungs and she starts coughing up phlegm. Thi s last episode lasted for 8 weeks in September. Could take deeper breath when she used albuterol . She has tried tiotroprium 8 years ago, and didn't think it helped, but now she is having mo re episodes and wonders if it might help to start. 1. In the past 4 weeks, how much time did your asthma keep you from getting as much done at work, school, or home? 4 - A little of the time 2. During the past 4 weeks, how often have you had shortness of breath? 4 - Once or twice a week 3. During the past 4 weeks, how often did your asthma symptoms (wheezing, coughing, shortne ss of breath, chest tightness, or pain) wake you up at night or earlier than usual in the mo rning? 5 - Not at all 4. During the Past 4 weeks, how often have you used your rescue inhaler or nebulizer medica tion (such as albuterol)? 4 - Once a week or less 5. How would you rate your asthma control during the past 4 weeks? 4 - Well controlled Total Score: 21 Score ?20 - well controlled Score ? 19 - not well controlled 10/22/2012 Spirometry FEV1/FVC ratio 65% ->73% post HAND GRINDER FVC 2.69/82% FEV1 1.75/70% -> 1.91/76%-9% increase Imaging: CT CHEST WO CONTRAST (no units) Date Value Range Status 11/17/2010 Final Value: EXAM: CT [...] CHEST W CONTRAST (no units) Date Value Range Status 09/17/2008 Final Value: STUDY:CTA chest [...] Current Medications: Current Outpatient Prescriptions Medication Sig atenolol 50 mg Oral Tablet Take 25 mg by mouth two times daily. budesonide (PULMICORT FLEXHALER) 180 mcg/actuation inhalation aerosol powdr breath acti vated Inhale 3 puffs two times daily. calcium citrate-vitamin D (CITRACAL + D) 315-200 mg-unit Oral Tablet 2 tabs in evening and liquid calcium citrate in AM DOFETILIDE 500 mcg oral capsule Take 1 capsule by mouth two times daily. ezetimibe (ZETIA) 10 mg Oral Tablet Take 10 mg by mouth once daily. fluticasone (FLONASE) 50 mcg/actuation Nasal [place], Suspension Instill 1 spray into eac h nostril two times daily. [...] current facility-administered medications for this visit. Past Medical History: Past Medical History Diagnosis [...] Heart ablation 12/16/2004,09/21/2005 Dr. Fuentes, [facility] Mastectomy Biopsy / excision / dissection axillary node Medications: Current Outpatient Prescriptions Medication Sig atenolol 50 mg Oral Tablet Take 25 mg by mouth two times daily. budesonide (PULMICORT FLEXHALER) 180 mcg/actuation inhalation aerosol powdr breath acti vated Inhale 3 puffs two times daily. calcium citrate-vitamin D (CITRACAL + D) 315-200 mg-unit Oral Tablet 2 tabs in evening and liquid calcium citrate in AM DOFETILIDE 500 mcg oral capsule Take 1 capsule by mouth two times daily. ezetimibe (ZETIA) 10 mg Oral Tablet Take 10 mg by mouth once daily. fluticasone (FLONASE) 50 mcg/actuation Nasal [place], Suspension Instill 1 spray into eac h nostril two times daily. [...] Physical Exam: Visit Vitals Item Reading BP 135/73 Pulse 72 Temp (Src) 35.8 C (96.4 F) (Forehead) RR 20 Ht 1.661 m (5' 5.4") Wt 65.318 kg (144 lb) SpO2 100% BMI 23.68 kg/(m^2) General: No acute distress, very pleasant, well-appearing woman SHANON: Normocephalic, anicteric sclerae, EOMI, external ears without lesions Nares: no rhinorrhea or congestion noted. Neck: No evidence of elevated jugular veins [...] MD PULMONARY & CRITICAL CARE MEDICINE AT [address] Mailcode: [id number] [place] [address] documented in this en counter Plan of Treatment Not on filedocumented as of this encounter Visit Diagnoses + + | Diagnosis | + + | Sinusitis - Primary Unspecified sinusitis (chronic) | + + | Asthma, moderate persistent, uncomplicated | + + documented in this encounter
--- OUTSIDE RECORDS SUMMARY | ~2020-05-04 | XMS | Encounter Summary ---
Demographics + + + | Address | [address] | | | [place] [address] | + + + | Home Phone [...] + | Gene Gee | ECON | [address] | | | | | [place], | | | | | [place] [address] | | + + + + + Care Team Providers + +------+ + | Care Motor Equipment Sergeant Name | Role | Phone | + +------+ + PCP | Unavailable | + +------+ + Encounter Details +--------+ + + + + | Date | Type | Department | Care Team | Description | +--------+ + + + + | 06/08/ | Results | [facility] Division of | Bob Reyna MD | | | 2003 | Only | Gastroenterology/Hep | [address] | | | | | atology [address] | [place], [place] | | | | | [address] | [address] | | | | | Mailcode: [id number] | [phone] | | | | | [facility] | | | | | | [address] | | | | | | [facility] [place] | | | | | | [address] | | | | | | [phone] | | | +--------+ + + + [...] + + | DIFFERENTIAL | Routin | 06/08/2004 | | Results for this | | | e | 10:50 AM | | procedure are in the | | | | PST | | results section. | + +--------+ + + + | INR | Routin | 06/08/2004 | | Results for this | | | e | 10:50 AM | | procedure are in the | | | | PST | | results section. | + +--------+ + + + | CBC, WITH | Routin | 06/08/2004 | | Results for this | | DIFFERENTIAL | e | 10:50 AM | | procedure are in the | | | | PST | | results section. | + +--------+ + + + | COMPLETE METABOLIC | Routin | 06/08/2004 | | Results for this | | SET | e | 10:50 AM | | procedure are in the | | (NA,K,CL,CO2,BUN,CRE | | PST | | results section. | | AT,GLUC,CA,AST,ALT,B | | | | | | DANICA TOTAL,ALK | | | | | | PHOS,ALB,PROT TOTAL) | | | | | + +--------+ + + + documented in this encounter Results PROTHROMBIN TIME (06/08/2004 10:50 AM PST) + + + + + [...] + + + + | [facility] | [address] | [place] [address] | | | PATHOLOGY | [address] | | | + + + + + | [facility] DEPARTMENT OF | [address] | [place] [address] | | | PATHOLOGY | [address] | | | + + + + + DIFFERENTIAL (06/08/2004 10:50 AM PST) + +-------+ + + + [...] + + + | EOS % | 2 | 1 - 3 % | [facility] [...] +-------+ + + + | NEUTROPHIL | 3.8 | 1.8 - 7.7 K/cu | [facility] [...] + + + + | [facility] | [address] [facility] | [place] [address] | | | PATHOLOGY | [address] | | | + + + + + | [facility] | [address] [facility] | [place] [address] | | | PATHOLOGY | [address] | | | + + + + + CBC, WITH DIFFERENTIAL (06/08/2004 10:50 AM PST) + + + + + + | Component | Value | Ref Range | Performed | Pathologist | | | | | At | Signature | + + + + + + | WHITE CELL | 6.4 | 4.4 - 11.0 K/cu | [facility] | | | COUNT | | mm | DEPARTMENT | | | | | | OF | | | | | | PATHOLOGY | | + + + + + + | RED CELL | 5.13 (H) | 3.65 - 5.10 | [facility] | | | COUNT | | M/cu mm | DEPARTMENT | | | | | | OF | | | | | | PATHOLOGY | | + + + + + + | HEMOGLOBIN | 14.9 | 11.4 - 15.0 | [facility] | | | | | g/dL | DEPARTMENT | | | | | | OF | | | | | | PATHOLOGY | | + + + + + + | HEMATOCRIT | 44.5 | 33.0 - 44.6 % | [facility] | | | | | | DEPARTMENT | | | | | | OF | | | | | | PATHOLOGY | | + + + + + + | MCV | 86.7 | 80.0 - 96.0 fL | [facility] | | | | | | DEPARTMENT | | | | | | OF | | | | | | PATHOLOGY | | + + + + + + | MCH | 29.1 | 29.0 - 32.0 pg | [facility] | | | | | | DEPARTMENT | | | | | | OF | | | | | | PATHOLOGY | | + + + + + + | MCHC | 33.5 | 33.4 - 35.5 | [facility] | | | | | g/dL | DEPARTMENT | | | | | | OF | | | | | | PATHOLOGY | | + + + + + + | RDW | 12.6 | 11.5 - 15.0 % | [facility] | | | | | | DEPARTMENT | | | | | | OF | | | | | | PATHOLOGY | | + + + + + + | PLATELET | 177 | 150 - 400 K/cu | [facility] | | | COUNT | | mm | DEPARTMENT | | | | | | OF | | | | | | PATHOLOGY | | + + + + + + | MPV | 9.7 [...] | + + + + + | [facility] DEPARTMENT OF | [address] | [place] [address] | | | PATHOLOGY | [address] | | | + + + + + | [facility] DEPARTMENT OF | [address] | [place] [address] | | | PATHOLOGY | [address] | | | + + + + + COMP METABOLIC SET (06/08/2004 10:50 AM PST) + +-------+ + + + | Component | Value | Ref Range | Performed | Pathologist | | | | | At | Signature | + +-------+ + + + | GLUCOSE, | 82 | 65 - 110 mg/dL | [facility] [...] +-------+ + + + | TOTAL | 7.2 | 6.1 - 7.9 g/dL | [facility] | | | PROTEIN, | | | DEPARTMENT | | | PLASMA | | | OF | | | (LAB) | | | PATHOLOGY | | + +-------+ + + + | ALBUMIN, | 3.6 | 3.5 - 4.7 g/dL | [facility] | | | PLASMA | | | DEPARTMENT | | | (LAB) | | | OF | | | | | | PATHOLOGY | | + +-------+ + + + | CALCIUM, | 9.6 | 8.5 - 10.5 | [facility] | [...] + + + | ALK PHOS | 108 | 53 - 141 U/L | [facility] | | | | | | DEPARTMENT | | | | | | OF | | | | | | PATHOLOGY | | + +-------+ + + + | AST(SGOT) | 36 [...] +-------+ + + + | CHLORIDE, | 104 | 98 - 107 mmol/L | [facility] [...] + + + | ALT (SGPT) | 34 | 13 - 48 U/L | [facility] [...] + + + + | [facility] | [address] | [place] [address] | | | PATHOLOGY | [address] | | | + + + + + | [facility] | [address] | [place] [address] | | | PATHOLOGY | [address] | | | + + + + + documented in this encounter Visit Diagnoses Not on filedocumented in this encounter"
--- OUTSIDE RECORDS SUMMARY | ~2020-05-04 | XMS | Encounter Summary ---
Demographics + + + | Address | [address] | | | [place] [address] | + + + | Home Phone [...] + | Gene Gee | ECON | [address] | | | | | [place], | | | | | [place] [address] | | + + + + + Care Team Providers + +------+ + | Care Plant Puller Name | Role | Phone | + +------+ + | Antony Ribera MD | PCP | | + +------+ + Reason for Visit + +--------+ + | Reason | Onset | Comments | | | Date | | + +--------+ + | Treatment Questions | 11/16/ | Lung nodules | | | 2010 | | + +--------+ + Encounter Details +--------+ + + + + | Date | Type | Department | Care Team | Description | +--------+ + + + + | 11/16/ | Telephone | Pulmonary & | Sergio Smtih | Treatment Questions | | 2010 | | Critical Care | MD Dianna | (Lung nodules) | | | | Medicine at | | | | | | [facility] | | | | | | [address] | | | | | | [address] [facility] | | | | | | [place], [address] [place] [address] | | | | | | [place], [place] | | | | | | [address] | | | | | | [phone] | | | +--------+ + + + [...] Telephone Encounter - Sergio Smith MD - 11/17/2010 1:06 PM PDTFellow Note Returned patient telephone call. Discussed results of last CT scan that demonstrated 2 sta ble 5 mm nodules and 1 new 3 mm nodule. Reviewed that these are almost always incidental fi ndings with no clinical significance. Recommended though that given her history of breast c ancer that she have a repeat non-contrast chest CT scan performed now (6 months since last C T) for follow up evaluation. If these nodules are unchanged and there are no new nodules, w ould consider a repeat CT scan in 1 year from now versus no additional follow up scans. Patient indicated that she is in [place] this afternoon and tomorrow morning and is hoping to have the CT scan performed during one of these times. Will discuss with office if this can be coordinated. Emma: Can you find out if the patient can have the non-contrast chest CT performed this af ternoon (1st choice) or tomorrow morning (2nd choice) and then let the patient know? She is on her cell phone at [phone]. If you need prior authorization, indication is follow u p of lung nodules in patient with history of breast cancer. Thanks! Sergio Smith MD Pulmonary/Critical Care Fellow elephone EncounRebecca Stark - 11/16/2010 2:09 PM PDTCarol would like to speak to Dr. Smith and discuss the status of lung nodules. She can be reached @ [phone].Electronically si gned by Rebecca Contreras at 11/16/2010 2:09 PM PDTdocumented in this encounter Plan of Treatment Not on filedocumented as of this encounter Visit Diagnoses Not on filedocumented in this encounter"
--- OUTSIDE RECORDS SUMMARY | ~2020-05-04 | XMS | Encounter Summary ---
Demographics + + + | Address | [address] | | | [place] [address] | + + + | Home Phone [...] + | Gene Gee | ECON | [address] | | | | | [place], | | | | | [place] [address] | | + + + + + Care Team Providers + +------+ + | Care Wine Blender Name | Role | Phone | [...] + + | 06/26/ | Hospital | [facility] [address] | Ki Lo | | | 2017 | Encounter | [address] | MD Dez [address] | | | | | [facility] | [place], | | | | | [place] | [place] [address] | | | | | (MNP/OLD N) | [phone] | | | | | [place], [place] | | | | | | [address] | | | | | | [phone] | | | +--------+ + + + [...] Pressure | 157/91 | 06/26/2017 11:14 AM | | | | | PST | | + + + + + | Pulse | 80 | 06/26/2017 11:14 AM | | | | | PST | | + + + + + | Temperature | 36.3 C (97.3 F) | 06/26/2017 10:47 AM | | | | | PST | | + + + + + | Respiratory Rate | 14 | 06/26/2017 11:14 AM | | | | | PST | | + + + + + | Oxygen Saturation | 100% | 06/26/2017 11:14 AM | | | | | PST | | + + + + + | Inhaled Oxygen | - | - | | | Concentration | | | | + + + + + | Weight | 71.2 kg (157 lb) | 06/26/2017 8:41 AM | | | | | PST | | + + + + + | Height | 166.4 cm (5' 5.5") | 06/26/2017 8:41 AM | | | | | PST | | + + + + + | Body Mass Index | 25.73 | 06/26/2017 8:41 AM | | | | | PST | | + + + + + documented in this encounter Discharge Instructions Instructions Jaclyn Miller RN - 06/26/2017 Home Care Instructions [...] on weekends and holidays call the Hospital Director [employer] toll free [phone]- [phone] ext. [phone] and have the GI doctor reconciliation coordinator paged. The provider who performed your procedure [...] weeks please call for your results . documented in this encounter Medications at Time [...] | | 0 | | | | #[id number] | daily. | | | | | [...] encounter Progress Notes Ki Lo MD - 06/26/2017 8:55 AM PSTFormatting of this note might be diffe rent from the original. PRE PROCEDURE NOTE: MR# [id number] Subjective: Adriana Flynn is a 71 y.o. [...] addressed. Consent obtained. See procedure note 06/26/2017 documented in this encounter Plan of Treatment [...] + documented in this encounter Results EGD (06/26/2017 10:22 AM PST) + + | Specimen | + + | | + + + + ---+ | Narrative | Performed At | + + ---+ | MRN: | [facility] | | [id number] Date: 06/26/2017Patient Name: Adriana Coon #: | ENDOSCOPY | | [id number] of : 4CSN: [id number] Type: | | | AmbulatoryRoom: GI 3Procedure: Upper GI | | | endoscopyIndications: DysphagiaProviders: | | | KI LO MD (Doctor), JACLYN MILLER RN | | | (Nurse), GAUTAM BRADY, Hand Molder And Caster (Hand Molder And Caster)Referring | | | MD: ANTONY RIBERA, MDRequesting Provider: Medicines: | | | [...] The | | | Olympus GIF-HQ190 Endoscope #[id number] was introduced | | | through the [...] esophageal manometry if symptoms | | | persist.KI LO MD06/26/2017 10:47:05 AMThis report | | | has been signed electronically.Number of Addenda: 0Note Initiated On: | | | 06/26/2017 10:22 [facility] Letter to: ANTONY RIBERA MD | | | - Normal stomach. | | | - No specimens collected. | | | No findings to explain dysphagia | | |Recommendation: - Perform ambulatory esophageal manometry if symptoms | | | persist. | | |KI LO MD | | |06/26/2017 10:47:05 AM | | |This report has been signed electronically. | | |Number of Addenda: 0 | | |Note Initiated On: 06/26/2017 10:22 AM | | |CC Letter to: | | | ANTONY RIBERA MD | | + + ---+ [...] + | MRN: | [facility] | | [id number] Date: 06/26/2017Patient Name: Adriana Coon #: | ENDOSCOPY | | [id number] of : 4CSN: [id number] Type: | | | AmbulatoryRoom: GI 3Procedure: ColonoscopyIndications: | | | Screening for colorectal malignant neoplasmProviders: | | | KI LO MD (Doctor), JACLYN MILLER RN | | | (Nurse), GAUTAM BRADY, Hand Molder And Caster | | | (Hand Molder And Caster)Referring MD: ANTONY RIBERA, MDRequesting | | | Provider: Medicines: [...] | | The Olympus PCF-H190L Peds Colonoscope #[id number] was | | | introduced through the anus and advanced to the | | | cecum, identified by appendiceal | | | orifice and ileocecal valve. The quality | | | of the bowel preparation was evaluated using | | | the BBPS (Oran Bowel Preparation Scale) with scores | | [...] | colonoscopy in 10 years for screening purposes.KI LO | | | 06/26/2017 10:50:45 AMThis report has been signed | | | electronically.Number of Addenda: 0Note Initiated On: 06/26/2017 10:21 | | | [facility] Letter to: ANTONY RIBERA MD | | |KI LO MD | | |06/26/2017 10:50:45 AM | | |This report has been signed electronically. | | |Number of Addenda: 0 | | |Note Initiated On: 06/26/2017 10:21 AM | | | Letter to: | | | ANTONY RIBERA MD | | + + + + +---------+ + + | Performing | Address | City/State/Zipcode | Phone Number | | Organization | | | | + +---------+ + + | [facility] | | | | + +---------+ + + documented in this encounter Visit Diagnoses + + | Diagnosis | + + | Colon cancer screening - Primary Special screening for malignant neoplasms, colon | + + | Diverticulosis of small intestine without perforation or abscess without bleeding | + + documented in this encounter Administered Medications + +--------+---------+------+------+------+ | Medication Order | MAR | Action | Dose | Rate | Site | | | Action | Date | | | | + +--------+---------+------+------+------+ + +---+ | fentaNYL (SUBLIMAZE) injection | | | 25 mcg 25 mcg, intravenous, | | | POSTPROCEDURE PRN, 8 doses, | | | Starting 06/26/17 at 0951, | | | Until e 06/26/17 at 1754, | | | severe pain while in Phase I | | | Recovery | | + +---+ | | | + +---+ | lactated Ringers IV 500 mL, | | | intravenous, POSTPROCEDURE PRN, 1 | | | dose, Starting Sun06/26/17 at | | | 0951, Until Sun06/26/17 at 1754, | | | nausea/vomiting due to | | | dehydration | | + +---+ | | | + +---+ | lactated Ringers IV 500 mL, | | | intravenous, POSTPROCEDURE PRN, 1 | | | dose, Starting Sun06/26/17 at | | | 0951, Until Sun06/26/17 at 1754, | | | systolic blood pressure less | | | than 80 mmHg. 1st line | | + +---+ | | | + +---+ | lidocaine viscous (XYLOCAINE | | | VISCOUS) 2 % mucosal solution 15 | | | mL 15 mL, oral, INTRAPROCEDURE | | | PRN, Starting Sun06/26/17 at | | | 0819, Until Sun06/26/17 at 1754, | | | sore oropharynx | | + +---+ | | | + +---+ | naloxone (NARCAN) injection | | | intravenous, POSTPROCEDURE PRN, | | | Starting 06/26/17 at 0951, | | | Until 06/26/17 at 1754, | | | hypopnea | | + +---+ | | | + +---+ | ondansetron (ZOFRAN) injection | | | 4 mg 4 mg, intravenous, | | | POSTPROCEDURE PRN, 1 dose, | | | Starting 06/26/17 at 0951, | | | Until 06/26/17 at 1754, | | | nausea/vomiting, 1st line | | + +---+ | | | + +---+ | simethicone (MYLICON) | | | suspension 3.333 mg 3.333 mg | | | (rounded from 3.3333 mg = 1 | | | drop), oral, INTRAPROCEDURE PRN, | | | Starting 06/26/17 at 0819, | | | Until 06/26/17 at 1754, gas | | | bubbles in endoscope | | + +---+ | | | + +---+ | sodium chloride 0.9% IV | | | infusion 50 mL/hr, intravenous, | | | CONTINUOUS, Starting 06/26/17 | | | at 0830, Until Christopher 06/26/17 at | | | 1754 | | + +---+ | | | + +---+ documented in this encounter
--- OUTSIDE RECORDS SUMMARY | ~2020-05-04 | XMS | Encounter Summary ---
Demographics + + + | Address | [address] | | | [place] [address] | + + + | Home Phone [...] + | Gene Gee | ECON | [address] | | | | | [place], | | | | | [place] [address] | | + + + + + Care Team Providers + +------+ + | Care General Technician Name | Role | Phone | + +------+ + | Antony Ribera MD | PCP | | + +------+ + Reason for Visit + +--------+ + | Reason | Onset | Comments | | | Date | | + +--------+ + | Arrhythmia | 05/21/ | | | | 2012 | | + +--------+ + Encounter Details +--------+ + + + + | Date | Type | Department | Care Team | Description | +--------+ + + + + | 05/21/ | Telephone | Cardiology General | Monique Middleton, | Arrhythmia | | 2013 | | at [facility] [address] | MEDICAL PHYSICS TEACHER | | | | | [facility] | | | | | | [facility] and Healing, | | | | | | [facility] [address], | | | | | | Floor [place], [place] | | | | | | [address] | | | | | | [phone] | | | +--------+ + + + [...] Telephone Encounter - Monique Middleton Np - 05/21/2013 11:32 AM PSTSpoke with Adriana. She bhakta d called because she had cataract surgery yesterday and was told she was in atrial fibrillat ion. They will send down a copy when they get a signed release from Adriana. She is taking h er dofetilide, is not on any anticoagulation. Has another cataract surgery in 3 weeks. She feels OK today but still some irregularity. She didn't know her rhythm was abnormal, excep t for faster, until they told her. Will see what the EKG shows. Will review with Dr Fuentes and see if he wants to do anything d ifferent. documented in this encounter Plan of Treatment Not on filedocumented as of this encounter Visit Diagnoses Not on filedocumented in this encounter"
--- OUTSIDE RECORDS SUMMARY | ~2020-05-04 | XMS | Encounter Summary ---
Demographics + + + | Address | [address] | | | [place] [address] | + + + | Home Phone [...] + | Gene Gee | ECON | [address] | | | | | [place], | | | | | [place] [address] | | + + + + + Care Team Providers + +------+ + | Care Retail Sales Consultant Name | Role | Phone | + +------+ + | Antony Ribera MD | PCP | | + +------+ + Reason for Visit + +--------+ + | Reason | Onset | Comments | | | Date | | + +--------+ + | Refill Request | 07/28/ | | | | 2009 | | + +--------+ + | Erroneous Encounter | 07/28/ | | | - Disregard | 2009 | | + +--------+ + Encounter Details +--------+--------+ + + + | Date | Type | Department | Care Team | Description | +--------+--------+ + + + | 07/28/ | Refill | Cardiology | Monique Middleton, | Refill Request; | | 2009 | | Arrhythmia at [facility] | MULTIMEDIA DEVELOPER | Erroneous Encounter | | | | [address] | | - Disregard | | | | [facility] | | | | | | and Healing, | | | | | | [facility] | | | | | | [place], [place] | | | | | | [address] | | | | | | [phone] | | | +--------+--------+ + + + [...]
--- OUTSIDE RECORDS SUMMARY | ~2020-05-04 | XMS | Encounter Summary ---
Demographics + + + | Address | [address] | | | [place] [address] | + + + | Home Phone [...] + | Gene Gee | ECON | [address] | | | | | [place], | | | | | [place] [address] | | + + + + + Care Team Providers + +------+ + | Care Manager Store Name | Role | Phone | + +------+ + | Antony Ribera MD | PCP | | + +------+ + Encounter Details +--------+ + + + + | Date | Type | Department | Care Team | Description | +--------+ + + + + | 09/18/ | Document-Sc | UNKNOWN DEPARTMENT | Radiologist, | | | 2009 | annboaz | [address] | [facility] [place] | | | | | [address] | | | | | | [place], [place] | | | | | | [address] | | | +--------+ + + + [...]
--- OUTSIDE RECORDS SUMMARY | ~2020-05-04 | XMS | Encounter Summary ---
Demographics + + + | Address | [address] | | | [place] [address] | + + + | Home Phone [...] + | Gene Sahil | ECON | [address] | | | | | [place], | | | | | [place] [address] | | + + + + + Care Team Providers + +------+ + | Care Oil Dispatcher Name | Role | Phone | + +------+ + | Antony Ribera MD | PCP | | + +------+ + Encounter Details +--------+ + + + + | Date | Type | Department | Care Team | Description | +--------+ + + + + | 09/05/ | Procedure - | | Bharati Pedroza, | Operative Report | | 2007 | | | [address] | | | | Transcribed | | [address] | | | | | | [place] [address] | | +--------+ + + + + [...] documented as of this encounter Procedure Notes Bharati Pedroza - 09/05/2007 12:00 AM PSTAssociated Order(s): OPERATION RECORD [id number] SAHIL Holman [id number] Date: 09/05/2007 Attending Surgeon: Henri Heart M.D. Cnc Machinist(s): Bharati Pedroza M.D. Preoperative Diagnosis(es): Unwanted left internal jugular port. Postoperative Diagnosis(es): Unwanted left internal jugular port. Procedures Performed: Removal of left internal jugular power port. Indications: Mrs. Adriana Flynn is a 61-year-old female with a history of right-sided breast cancer status post right-sided simple mastectomy status post adjuvant chemotherapy, last treatment 08/26/2007. She presents to our clinic for removal of unwanted port. Procedure: Mrs. Flynn was identified in the preoperative area. She was given local anesthesia over her incision site. The area was prepped and draped in the usual sterile fashion and an incision was carried out over the existing incision site of port placement. The skin was open to the level of the port with Bovie cautery. The port was identified, the tacking sutures were removed. The port was pulled out from the skin without complication. The site was checked for hemostasis. We then closed the pocket with a running suture and closed the skin with a running subcuticular suture. The patient tolerated the procedure well. No blood loss. No complications. Dr. Heart was present for the entirety of the procedure. Bharati Pedroza M.D. Henri Heart M.D. / [id number] / [id number] / [id number] / Reviewed or Edited By Bharati Pedroza M.D. on 09-09-2007 Electronically signed by Henri Heart 03-18-2008 01:17:57 PM documented in this e ncounter Plan of Treatment Not on filedocumented as of this encounter Procedures + +--------+ + + + | Procedure Name | Priori | Date/Time | Associated Diagnosis | Comments | | | ty | | | | + +--------+ + + + | OPERATION RECORD | | 09/05/2007 | | Results for this | | | | 12:00 AM | | procedure are in the | | | | PST | | results section. | + +--------+ + + + documented in this encounter Results OPERATION RECORD (09/05/2007 12:00 AM PST) + + + | Narrative | Performed At | + + + | [id number] | | | [id number] SAHIL | | | ADRIANA Holman [id number] Date: | | | 09/05/2007 Attending Surgeon: | | | Henri Heart M.D. Cnc Machinist(s): | | | Bharati Pedroza M.D. Preoperative Diagnosis(es): Unwanted | | | left internal jugular port. Postoperative Diagnosis(es): | | | Unwanted left internal jugular port. Procedures Performed: | | | Removal of left internal jugular power port. Indications: | | | Adriana Flynn is a 61-year-old female with a history of right-sided | | | breast cancer status post right-sided simple mastectomy status post | | | adjuvant chemotherapy, last treatment 08/26/2007. She presents to | | | our clinic for removal of unwanted port. Procedure: | | | Sahil was identified in the preoperative area. She was given local | | | anesthesia over her incision site. The area was prepped and | | | draped in the usual sterile fashion and an incision was carried out | | | over the existing incision site of port placement. The skin was | | | open to the level of the port with Bovie cautery. The port was | | | identified, the tacking sutures were removed. The port was pulled | | | out from the skin without complication. The site was checked for | | | hemostasis. We then closed the pocket with a running suture and | | | closed the skin with a running subcuticular suture. The patient | | | tolerated the procedure well. No blood loss. No complications. | | | Dr. Heart was present for the entirety of the procedure. | | | Bharati Pedroza M.D. Henri Heart M.D. | | | [facility] [id number] / [id number] / [id number] / T: | | | 09/05/2007 Reviewed or Edited By Bharati Pedroza M.D. on | | | 09-09-2007 Electronically signed by Henri Heart 03-18-2008 | | | 01:17:57 PM | | + + + + + | Procedure Note | + + | Bharati Pedroza MD - 09/05/2007 12:00 AM PST [id number] | | [id number] SAHIL Holman | | [id number] Date: 09/05/2007 Attending Surgeon: Henri | | Declan Heart Cnc Machinist(s): Bharati Pedroza M.D. Preoperative | | Diagnosis(es):Unwanted left internal jugular port. Postoperative Diagnosis(es):Unwanted | | left internal jugular port. Procedures Performed:Removal of left internal jugular | | power port. Indications:Mrs. Adriana Flynn is a 61-year-old female with a history of | | right-sidedbreast cancer status post right-sided simple mastectomy status postadjuvant | | chemotherapy, last treatment 08/26/2007. She presents to ourclinic for removal of | | unwanted port. Procedure:Mrs. Flynn was identified in the preoperative area. She was | | given localanesthesia over her incision site. The area was prepped and draped in | | theusual sterile fashion and an incision was carried out over the existingincision site | | of port placement. The skin was open to the level of theport with Bovie cautery. The | | port was identified, the tacking sutures wereremoved. The port was pulled out from the | | skin without complication. Thesite was checked for hemostasis. We then closed the | | pocket with a runningsuture and closed the skin with a running subcuticular suture. The | | patienttolerated the procedure well. No blood loss. No complications. was | | present for the entirety of the procedure. Declan Barlow | | Brad Heart. [facility] [id number] / [id number] / [id number] / T: 09/05/2007 Reviewed | | or Edited By Bharati Pedroza M.D. on [id number] signed by Henri Heart | | 03-18-2008 01:17:57 PM | |Procedures Performed: | |Removal of left internal jugular power port. | | | | | |Indications: | |Mrs. Adriana Flynn is a 61-year-old female with a history of right-sided | |breast cancer status post right-sided simple mastectomy status post | |adjuvant chemotherapy, last treatment 08/26/2007. She presents to our | |clinic for removal of unwanted port. | | | | | |Procedure: | |Mrs. Flynn was identified in the preoperative area. She was given local | |anesthesia over her incision site. The area was prepped and draped in the | |usual sterile fashion and an incision was carried out over the existing | |incision site of port placement. The skin was open to the level of the | |port with Bovie cautery. The port was identified, the tacking sutures were | |removed. The port was pulled out from the skin without complication. The | |site was checked for hemostasis. We then closed the pocket with a running | |suture and closed the skin with a running subcuticular suture. The patient | |tolerated the procedure well. No blood loss. No complications. | |Sly was present for the entirety of the procedure. | | | | | | | | | | | | | |Bharati Pedroza M.D. | | | | | | | | | | | | | |Henri Heart M.D. | | | | | | / | |[id number] / [id number] / [id number] / | | | | | | | | | | | | | |Reviewed or Edited By Bharati Pedroza M.D. on 09-09-2007 | |Electronically signed by Henri Heart 03-18-2008 01:17:57 PM | | | | | + + documented in this encounter Visit Diagnoses Not on filedocumented in this encounter"
--- OUTSIDE RECORDS SUMMARY | ~2020-05-04 | XMS | Encounter Summary ---
Demographics + + + | Address | [address] | | | [place] [address] | + + + | Home Phone | | + + + | Preferred Language | Unknown | + + + | Marital Status | | + + + | Episcopalian Affiliation | 1013 | + + + | Race | White | + + + | Ethnic Group | Not or | + + + Author + + + | Author | [facility] | | | and [place] | + + + | Organization | [facility] | | | [...] Providers + +------+ + | Care Associate Professor Plant Pathology Name | Role | Phone | + +------+ + | Alec Hill MD | PCP | | + +------+ + Encounter Details +--------+ + + + + | Date | Type | Department | Care Team | Description | +--------+ + + + + | 04/08/ | Orders Only | [facility] | Julia Wallace | | | 2018 | | CARDIOLOGY ELIZA Veliz [facility] | | | | | [address] | | | | | | [place] | | | | | | [address] | | | | | | [phone] | | | +--------+ + + + [...] | | | | | [place] [address] | | | | | | [phone] | | | | | | | | +--------+ + + + + | 05/19/ | Appointment | Cardiology | Martin Kelley, | | | 2019 | | | MD [address] | | | | | | [place] | | | | | | [place] [address] | | | | | | [phone] | | | | | | | | +--------+ + + + + | 11/26/ | Office | Cardiology | Martin Kelley, | | | 2020 | Visit | | MD [address] | | | | | | [place], | | | | | | [place] [address] | | | | | | [phone] | | | | | | | | +--------+ + + + + documented as of this encounter Visit Diagnoses Not on filedocumented in this encounter"
--- OUTSIDE RECORDS SUMMARY | ~2020-05-04 | XMS | Encounter Summary ---
Demographics + + + | Address | [address] | | | [place] [address] | + + + | Home Phone [...] + | Gene Gee | ECON | [address] | | | | | [place], | | | | | [place] [address] | | + + + + + Care Team Providers + +------+ + | Care Copper Flotation Operator Name | Role | Phone | + +------+ + | Antony Ribera MD | PCP | | + +------+ + Reason for Visit + + + | Reason | Comments | + + + | Postoperative visit | R breast recon w/te placement and possible use of alloderm. | + + + Global Period [...] | | | | | | | [place] [facility] | | | | | | | [facility] and | | | | | | | Healing, | | | | | | | [address], | | | | | | | 5th Floor | | | | | | | [place], [place] | | | | | | | [address] | | | | | | | Phone: | | | | | | | [phone] | +--------+--------+ + + + + Encounter Details +--------+---------+ + + + | Date | Type | Department | Care Team | Description | +--------+---------+ + + + | 07/04/ | Office | Plastic and | Santiago Hu, | Breast cancer (HCC) | | 2011 | Visit | Reconstructive | PA-C [address] | (Primary Dx) | | | | Surgery at [facility] [address] | [facility] [address] | | | | | [address] [facility] | [address], [place] | | | | | [facility] and | [id number] | | | | | [place] [address], | | | | | | 5th Floor | | | | | | [place], [place] | | | | | | [address] | | | | | | [phone] | | | +--------+---------+ + + + [...] documented as of this encounter Progress Notes Hu PA, Santiago K - 07/04/2012 1:19 PM PSTPlastic and Reconstructive Surgery Post-operative Visit S: POD# 8 days HPI: Adriana Flynn is a 66 y.o. female who presents today status-post Placement of right s ubpectoral tissue roping machine tender 450 mL [place] Siltex Contour Profile roping machine tender, reference #[id number], serial #[id number] , filled to 250 mL intraoperatively on 06/26/12. She is experiencing pain in the right axilla with ROM of RUE and feels like TE is pressing against scar tissue. Her pain control is good. She is currently taking narcotics for pain. Here today for postop evaluation. Her removed her drains two days ago wo complication. ROS: General: denies constitutional sxs. Denies fever, [...] A/P: Status-post Placement of right subpectoral tissue roping machine tender 450 mL [place] Siltex Contour Profile roping machine tender, reference #[id number], serial #[id number] , f illed to 250 mL intraoperatively Pain right axilla otherwise doing well. -Discussed continued incision care: gently clean with soap and running water, apply thin fi lm of abx ointment, bandage to keep clean and dry. -F/U with Dr Lopez as scheduled for f/u and discuss course for TE fills, sooner prn. The patient indicates understanding of these issues and agrees to the plan. Electronically signed on 07/04/2012 at 1:19 PM SANTIAGO HU PA-C. documented in this encounter Plan of Treatment Not on filedocumented as of this encounter Visit Diagnoses + + | Diagnosis | + + | Breast cancer (HCC) - Primary Malignant neoplasm of breast (female), unspecified site | + + documented in this encounter"
--- OUTSIDE RECORDS SUMMARY | ~2020-05-04 | XMS | Encounter Summary ---
Demographics + + + | Address | [address] | | | [place] [address] | + + + | Home Phone [...] + | Gene Gee | ECON | [address] | | | | | [place], | | | | | [place] [address] | | + + + + + Care Team Providers + +------+ + | Care High [employer] Library Media Specialist Name | Role | Phone | + +------+ + | Antony Ribera MD | PCP | | + +------+ + Encounter Details +--------+ + + + + | Date | Type | Department | Care Team | Description | +--------+ + + + + | 01/10/ | Documentati | Pulmonary & | Juana Kilgore MD | | | 2018 | on | Critical Care | [address] | | | | | Medicine at | [facility], | | | | | Physicians [place] | [place] [address] | | | | | [address] | [phone] | | | | | [address] Physician's | | | | | | [place], [address]rd Floor | | | | | | [place], [place] | | | | | | [address] | | | | | | [phone] | | | +--------+ + + + [...]
--- OUTSIDE RECORDS SUMMARY | ~2020-05-04 | XMS | Encounter Summary ---
Demographics + + + | Address | [address] | | | [place] [address] | + + + | Home Phone [...] + | Gene Gee | ECON | [address] | | | | | [place], | | | | | [place] [address] | | + + + + + Care Team Providers + +------+ + | Care Behavioral Interventionist Name | Role | Phone | + +------+ + | Antony Ribera MD | PCP | | + +------+ + Reason for Visit + + + | Reason | Comments | + + + | Breast cancer | | + + + | Follow-up visit | | + + + | Treatment Planning | | + + + Encounter Details +--------+---------+ + + + | Date | Type | Department | Care Team | Description | +--------+---------+ + + + | 10/12/ | Office | Hematology/Medical | Stevan Velazquez, | Breast cancer (HCC) | | 2009 | Visit | Oncology at [facility] | MD [address] | (Primary Dx) | | | | [address] | [place], [place] | | | | | Mailcode: [facility] | [address] | | | | | [facility] | [phone] | | | | | and [place], | | | | | | [place] [address] [facility] | | | | | | Floor [place], [place] | | | | | | [address] | | | | | | [phone] | | | +--------+---------+ + + + [...] + + + | Blood Pressure | 114/65 | 10/12/2009 11:14 AM | | | | | PDT | | + + + + + | Pulse | 56 | 10/12/2009 11:14 AM | | | | | PDT | | + + + + + | Temperature | 36.3 C (97.4 F) | 10/12/2009 11:14 AM | | | | | PDT | | + + + + + | Respiratory Rate | 14 | 10/12/2009 11:14 AM | | | | | PDT | | + + + + + | Oxygen Saturation | - | - | | + + + + + | Inhaled Oxygen | - | - | | | Concentration | | | | + + + + + | Weight | 66.5 kg (146 lb 9.6 | 10/12/2009 11:14 AM | | | | oz) | PDT | | + + + + + | Height | - | - | | + + + + + | Body Mass Index | 23.66 | 09/30/2009 10:44 AM | | | | | PDT | | + + + + + documented in this encounter Progress Notes Stevan Velazquez MD - 10/12/2009 11:34 AM PDTFormatting of this note might be [...] continues on arimidex. She saw Dr. Campa in 03/24 at which time repeat lower ext Dopplers was done which was negative. She was taken off coumadin at t hat time. She recently completed vein stripping surgery. She is to get upper GI endoscopy fo r recurrent GERD symptoms. FH negative for cancer but mother has osteoporosis SH notable for being , no smoking nor drinking. S- Drove in this morning Was having more difficulty with breathing Stopped crestor because of muscle spasm and knee stiffness and tightness around neck. Not o n any statin any more Upper GI endoscopy in three weeks Vomiting up bending over- which is her baseline No coughing- a little more SOB- thought to be related to asthma- better Up and down the stairs which can give her SOB. Bike 25 minutes three times a day. Muscle toning twice a week. Lives up in 3000 feet. No chest pain or pressure Elevated d- dimer which has been chronic Appetite fine- gaining some weight. No ankle swelling- stripping of vein on left lower ext. ROM is fine No swelling of arms- almost all gone. No numbness or tingling sensation. No headache Bladder infection and sinus blockage - two weeks ago- now resolved. Took sulfa and this roxie e it was fine. Diarrhea resolved. No abdominal pain Dental check up every 6months- all fine No nipple discharge any more. It happened twice- left side. Wetness on the underwear. Nothi ng to expel. Eye drops- for dry eyes- fresh ngozi twice a day plus artificial tear. Soothe-XP OTC. O- Filed Vitals: 10/12/2009 11:14 AM Weight: 66.497 kg (146 lb 9.6 oz) BP: 114/65 Pulse: 56 Temp: 36.3 C (97.4 F) TempSrc: Oral Resp: 14 PainSc: 0 - Zero alert and oriented Not pale or icteric No oral lesion Neck supple No JVE Chest, symmetric expansion, breathing sound is clear No wheezing or rales Heart, RR, no murmur or gallop Abd, soft and non tender No liver or spleen or mass palpable No increased rigidity or rebound No lower ext edema No knocking pain down the spine No CVA tenderness Lymphatics- no cervical, axillary, supra-clav or infra-clav LAD Breast exam- right breast surgically missing No concerning mass or nodule over right sided chest wall No overlying skin change Left breast is without dominant nodule or skin change. No nipple deformity or discharge Neuro intact [place] DIAGNOSTIC MAMMO LEFT W/CAD: May 27, 2009 - CC, MLO, and XCCL view(s) were taken of the left breast. Prior study comparison: May 21, 2008, [facility] DIG MAMMO DIAG LEFT. December 05, 2007, [facility] DIG MAMMO DIAG LEFT. The [...] full field digital mammography on the dedicated EndoDex System with R2 CAD. Performed at [facility] and [facility]. ASSESSMENT: Benign - Category 2 RECOMMENDATION: Routine screening mammogram of the left breast in 1 year. Component Latest Ref Rng 06/22/2009 TSH, SERUM 0.3 - 5.0 uIU/ml 2.59 VITAMIN D 25 HYDROXY, SERUM 30 - 80 ng/mL 53 A/P- Adriana is here for follow up. She has no breast specific complaint and she has a negati ve CBE. Issues with her are more with breathing as she thinks her asthma has kicked up a bit which was relieved with inhalers. She thinks it is getting a little better with her breathi ng. She has chronically elevated level of d-dimers which I will forward to Dr. Katheryn snow his comments. Adriana tolerates her arimidex well. We discuss that arimidex can be associated with increase d bone loss, increased risk of fracture, menopausal symptoms, cognitive and mood change, shadi nt pain and development of unfavorable lipid profile. Adriana currently is not on a statin but her lipid panel needs to be monitored and managed if clinically indicated. She has normal ROM of her right shoulder. She is to get an upper GI endoscopy for recurrent GERD symptoms despite PPI. Adriana is under the care of endocrinology- she is taking calcium and vitamin D. She is getti ng reclast for low bone density and GI intolerance of oral bisphosphonate. Her last reclast was in the summer of 2008. We will see her back in 6 months. documented in this encounter Plan of Treatment Not on filedocumented as of this encounter Visit Diagnoses + + | Diagnosis | + + | Breast cancer (HCC) - Primary Malignant neoplasm of breast (female), unspecified site | + + documented in this encounter"
--- OUTSIDE RECORDS SUMMARY | ~2020-05-04 | XMS | Encounter Summary ---
Demographics + + + | Address | [address] | | | [place] [address] | + + + | Home Phone [...] + | Gene Gee | ECON | [address] | | | | | [place], | | | | | [place] [address] | | + + + + + Care Team Providers + +------+ + | Care Lead Military Analyst Name | Role | Phone | + +------+ + | Antony Ribear MD | PCP | | + +------+ + Reason for Visit + +--------+ + | Reason | Onset | Comments | | | Date | | + +--------+ + | Refill Request | 08/17/ | | | | 2008 | | + +--------+ + Encounter Details +--------+--------+ + + + | Date | Type | Department | Care Team | Description | +--------+--------+ + + + | 08/17/ | Refill | Cardiology | Gary Fuentes MD | Refill Request | | 2008 | | Arrhythmia at [facility] | [address] | | | | | [address] | [address], | | | | | [facility] | [place] [address] | | | | | and Healing, | [phone] | | | | | [facility] | | | | | | Floor [place], [place] | | | | | | [address] | | | | | | [phone] | | | +--------+--------+ + + + [...]
--- OUTSIDE RECORDS SUMMARY | ~2020-05-04 | XMS | Encounter Summary ---
Demographics + + + | Address | [address] | | | [place] [address] | + + + | Home Phone [...] + | Gene Gee | ECON | [address] | | | | | [place], | | | | | [place] [address] | | + + + + + Care Team Providers + +------+ + | Care Cms Expert Name | Role | Phone | + +------+ + | Antony Ribera MD | PCP | | + +------+ + Reason for Visit + +--------+ + | Reason | Onset | Comments | | | Date | | + +--------+ + | Postoperative | 10/28/ | | | Questions | 2012 | | + +--------+ + Encounter Details +--------+ + + + + | Date | Type | Department | Care Team | Description | +--------+ + + + + | 10/28/ | Telephone | Plastic and | Errol Gold | Postoperative | | 2012 | | Reconstructive | MD Manda [address] | Questions | | | | Surgery at [facility] [address] [facility] [address] | | | | | [facility] | [address] [place], [place] | | | | | for Health and | [address] | | | | | Healing, [address], | | | | | | 5th Floor | | | | | | [facility] [place] | | | | | | [address] | | | | | | [phone] | | | +--------+ + + + [...] Telephone Encounter - Simran Roque MA - 10/28/2012 4:23 PM PDTNext Appointment in [facility] is on 10/30/12 at 3:30 pm with Errol Gold MD. Per Dr. Dennys Gold. elephone Encounter - Simran Roque MA - 10/28/2012 3:15 PM PDTRouted to Chana to schedule an appointm ent. elephone Encoun melissa - Virginia Diaz - 10/28/2012 1:58 PM PDTPatient called, states fluid is buildin g up in her breast again. She comes from [facility] but will be coming through after noon and back on Sunday. Santiago's schedule is full and she would like to if she needs to be s een to have it removed or what the plan is? documented in this encounter Plan of Treatment Not on filedocumented as of this encounter Visit Diagnoses Not on filedocumented in this encounter"
--- OUTSIDE RECORDS SUMMARY | ~2020-05-04 | XMS | Encounter Summary ---
Demographics + + + | Address | [address] | | | [place] [address] | + + + | Home Phone [...] + | Gene Gee | ECON | [address] | | | | | [place], | | | | | [place] [address] | | + + + + + Care Team Providers + +------+ + | Care Rigger Supervisor Name | Role | Phone | + +------+ + | Antony Ribera MD | PCP | | + +------+ + Encounter Details +--------+ + + + + | Date | Type | Department | Care Team | Description | +--------+ + + + + | 08/29/ | MyChart | John Rudolph | Tapan Horowitz MD | RE: Bone scan | | 2017 | Encounter | [facility] | [address] | | | | | [facility] | [address] [place], | | | | | [address] | [place] [address] | | | | | [address] | [phone] | | | | | Physician's | | | | | | [place], 1st floor | | | | | | [place], [place] | | | | | | [address] | | | | | | [phone] | | | +--------+ + + + [...]
--- OUTSIDE RECORDS SUMMARY | ~2020-05-04 | XMS | Encounter Summary ---
Demographics + + + | Address | [address] | | | [place] [address] | + + + | Home Phone [...] + | Gene Gee | ECON | [address] | | | | | [place], | | | | | [place] [address] | | + + + + + Care Team Providers + +------+ + | Care Licensing Analyst Name | Role | Phone | + +------+ + | Antony Ribera MD | PCP | | + +------+ + Encounter Details +--------+ + + + + | Date | Type | Department | Care Team | Description | +--------+ + + + + | 06/08/ | MyChart | Cardiology | Elijah Whalen, | RE:[facility] | | 2014 | Encounter | Arrhythmia at [facility] | [address] | | | | | [address] | [address] | | | | | [facility] | [place], [place] | | | | | and Healing, | [address] | | | | | [facility] | [phone] | | | | | Floor [place], [place] | | | | | | [address] | | | | | | [phone] | | | +--------+ + + + [...]
[2020-05-04] MEDS ORDERED: ELIQUIS5 MG PO (13:20)
[2020-05-04] MEDS ORDERED: MIRALAX17 GM PO (13:21)
[2020-05-04] MEDS ORDERED: LOSARTAN POTAS100 MG PO (13:21)
[2020-05-04] MEDS ORDERED: ALL DAY ALLERGY10 MG PO (13:22)
[2020-05-04] MEDS ORDERED: MAGNESIUM250 MG PO (13:22)
[2020-05-04] MEDS ORDERED: BISOPROLOL FUMA10 MG PO (13:23)
[2020-05-04] MEDS ORDERED: SPIRIVA18 MCG INH (13:24)
[2020-05-04] MEDS ORDERED: CAMBIA50 MG PO (13:24)
[2020-05-04] MEDS ORDERED: PROMETHAZINE HC25 MG PR (14:03)
[2020-05-04] MEDS ORDERED: PROTONIX40 MG PO (14:03)
== END 2020-05-04 14:15 | disposition home or self-care (01) ==
LOC: ED 12:06
DX: R11.2 Nausea with vomiting, unspecified (principal); H65.93 Unspecified nonsuppurative otitis media, bilateral; T36.0X5A Adverse effect of penicillins, initial encounter; Z85.3 Personal history of malignant neoplasm of breast; Z88.8 Allergy status to other drugs, medicaments and biological substances; Z88.1 Allergy status to other antibiotic agents; Z79.899 Other long term (current) drug therapy
CPT/HCPCS: 80053; 85025; 96361; 96374; 96375; 99284-25; J1200; J1790; J7030

== ENCOUNTER 2022-02-16 21:45 | Emergency (ER) | payer MEDICARE, OTHER ==
[~2022-02-16] VITALS: Ht 165.1 cm; Wt 66.7 kg
--- NOTE | ~2022-02-16 | EKG ---
[facility] [address] [facility] [place], [place] [address] Draft EK completed, results pending confirmation PATIENT NAME: LAUREN BAXTER Electrocardiogram DATE OF : 41 PHYSICIAN: PRELIMINARY REPORT #: [id number] REPORT IS CONFIDENTIAL AND NOT TO BE RELEASED WITHOUT AUTHORIZATION
[~2022-02-16 21:45] MED LIST changes: +ALL DAY ALLERGY10 MG PO; +BISOPROLOL FUMA10 MG PO; +CAMBIA50 MG PO; +ELIQUIS5 MG PO; +LOSARTAN POTAS100 MG PO; +MAGNESIUM250 MG PO; +MIRALAX17 GM PO; +PROMETHAZINE HC25 MG PR; +PROTONIX40 MG PO; +SPIRIVA18 MCG INH
[2022-02-17] MEDS ORDERED: SPIRONOLACTONE25 MG PO (00:16)
[2022-02-17] MEDS ORDERED: DOFETILIDE250 MCG PO (00:16)
[2022-02-17] MEDS ORDERED: LEVALBUTER1.25 MG/3 INH (00:18)
[2022-02-17] MEDS ORDERED: IMODIUM A-D2 M2 PO (00:52)
[2022-02-17] MEDS ORDERED: LEVSIN0.125 MG PO (00:52)
[2022-02-17] MEDS ORDERED: ONDANSETRON ODT8 MG PO (00:52)
== END 2022-02-17 02:00 | disposition home or self-care (01) ==
LOC: ED 21:45
DX: E86.0 Dehydration (principal); B34.9 Viral infection, unspecified; Z20.822 Contact with and (suspected) exposure to COVID-19; J45.909 Unspecified asthma, uncomplicated; Z88.1 Allergy status to other antibiotic agents; Z88.8 Allergy status to other drugs, medicaments and biological substances; Z79.899 Other long term (current) drug therapy
CPT/HCPCS: 36415; 80053; 85025; 87502; 93005; 93010; 96361; 96374; 99284-25; C9803; J2405; J7030; U0003

== ENCOUNTER 2022-08-30 21:24 | Inpatient (IN) | payer MEDICARE, OTHER ==
[~2022-08-30] VITALS: Ht 165.1 cm; Wt 70.5 kg
[~2022-08-30 21:24] MED LIST changes: +DOFETILIDE250 MCG PO; +IMODIUM A-D2 M2 PO; +LEVALBUTER1.25 MG/3 INH; +LEVSIN0.125 MG PO; -MAGNESIUM250 MG PO; +MAGNESIUM400 M1 PO; +ONDANSETRON ODT8 MG PO; +SPIRONOLACTONE25 MG PO
[2022-08-30] MEDS ORDERED: AMIODARONE HCL200 MG PO (21:32)
[2022-08-30] MEDS ORDERED: DIGOXIN125 MCG PO (21:35)
--- NOTE | 2022-08-31 07:29 | EKG ---
[facility] [address] [facility] [place] [address] Signed Atrial fibrillation with slow ventricular response Rightward axis Low voltage QRS Nonspecific ST and T wave abnormality Abnormal ECG When compared with ECG of 17-FEB-2022 00:31, Atrial fibrillation has replaced Sinus rhythm Nonspecific T wave abnormality, worse in Inferior leads T wave inversion now evident in Anterior leads QT has shortened Confirmed by TAYLOR PAULA MD ([id number]) on 08/31/2022 7:29:44 AM Electronically Signed By: TAYLOR PAULA MD 08/31/22 0729 PATIENT NAME: LAUREN BAXTER Electrocardiogram DATE OF : 41 PHYSICIAN: TAYLOR PAULA MD REPORT #: [id number] REPORT IS CONFIDENTIAL AND NOT TO BE RELEASED WITHOUT AUTHORIZATION
[2022-08-31] MEDS ORDERED: LOSARTAN POTASS50 MG PO (09:19)
[2022-09-01] MEDS ORDERED: FLUTICASONE-SA1 EAC4 INH (12:08)
[2022-09-01] MEDS ORDERED: LEVALBUTER1.25 MG/3 INH (12:08)
[2022-09-01] MEDS ORDERED: SPIRIVA RESPIMAT4 GM INH (12:09)
[2022-09-01] MEDS ORDERED: FLONASE ALLERG9.9 ML NAS (12:17)
[2022-09-02] MEDS ORDERED: BISOPROLOL FUMA10 MG PO (13:19)
== END 2022-09-02 13:48 | disposition home or self-care (01) | DRG 918 ==
LOC: ED 21:24 → CCU 21:26
PROVIDERS: ADMIT Internal Medicine; ATTEND Family Medicine
DX: T46.0X1A Poisoning by cardiac-stimulant glycosides and drugs of similar action, accidental (unintentional), initial encounter (principal); Z20.822 Contact with and (suspected) exposure to COVID-19; M35.00 Sjogren syndrome, unspecified; M79.7 Fibromyalgia; R00.1 Bradycardia, unspecified; I34.1 Nonrheumatic mitral (valve) prolapse; R91.1 Solitary pulmonary nodule; J45.909 Unspecified asthma, uncomplicated; Z87.19 Personal history of other diseases of the digestive system; Z85.3 Personal history of malignant neoplasm of breast; Z85.828 Personal history of other malignant neoplasm of skin; Z90.10 Acquired absence of unspecified breast and nipple; Z90.49 Acquired absence of other specified parts of digestive tract; Z90.710 Acquired absence of both cervix and uterus; Z98.890 Other specified postprocedural states; Z88.0 Allergy status to penicillin; Z88.8 Allergy status to other drugs, medicaments and biological substances; Z79.01 Long term (current) use of anticoagulants; Z79.899 Other long term (current) drug therapy; X58.XXXA Exposure to other specified factors, initial encounter
CPT/HCPCS: 36415; 80048; 80053; 80162; 83735; 83880; 84484; 85025; 87502; 93005; 93010; 94640; 96365; 96376; 99285-25; A9270; J1162; J1940; J3480; J7120; J7121; U0003